=== PATIENT | female | born 1990 | race Caucasian/White ===

== ENCOUNTER 2017-11-29 00:47 | Emergency (ER) | payer SELFPAY ==
[2017-11-29] MEDS ORDERED: ONDANSETRON 4 MG/2 ML VIAL ONE (02:08)
[2017-11-29] MEDS ORDERED: MEPERIDINE HCL 50 MG/ML AMP ONE (02:08)
[2017-11-29 02:31] LABS: Urine Blood NEGATIVE (NEG); Urine Glucose NEGATIVE (NEG); Urine Protein NEGATIVE (NEG); Urine Specific Gravity 1.015 (1.005-1.030); Urine pH 5.5 (5.0-7.0)
[2017-11-29] MEDS ORDERED: MORPHINE 10 MG/ML VIAL ONE (03:02)
--- NOTE | 2017-11-29 03:10 | ER ---
Nurse's Notes [facility] Name: Lona Winter Age: 27 yrs Sex: Female : 1990 Arrival Date: 11/29/2017 Time: 00:50 Bed 6 Private MD: Severo Avina T Diagnosis: Acute low back pain. S/P Fall Presentation: 11/29 01:07 Presenting complaint: Patient states: she slipped and fell 4 days and landed on her aa1 back on a tile floor and the pain is progressively getting worse. States pain radiates down R leg and up to L shoulder. Gait steady. Transition of care: patient was not received from another setting of care. Onset of symptoms was November 25, 2017. Care prior to arrival: None. 01:07 Method Of Arrival: Ambulatory aa1 01:07 Acuity: SMITH 4 aa1 Triage Assessment: 01:09 General: Appears in no apparent distress. uncomfortable, Behavior is calm, cooperative, aa1 appropriate for age. 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 - Social history:: Smoking status: Patient uses tobacco products, denies chronic smoking, but will smoke occasionally. Screenin:33 Abuse screen: Denies threats or abuse. Denies injuries from another. Nutritional ao screening: No deficits noted. Tuberculosis screening: No symptoms or risk factors identified. Fall Risk None identified. Assessment: 01:26 General: Appears in no apparent distress. uncomfortable, Behavior is cooperative, ao crying. Pain: Complains of pain in back Pain radiates to left subscapular area, left low back and left mid back. Neuro: Level of Consciousness is awake, alert, obeys commands, Oriented to person, place, time, situation, Appropriate for age Moves all extremities. Speech is normal, Facial symmetry appears normal. Cardiovascular: Heart tones S1 S2 Capillary refill < 3 seconds Patient's skin is warm and dry. Respiratory: Airway is patent Respiratory effort is even, unlabored, Respiratory pattern is regular, symmetrical, Breath sounds are clear bilaterally. GI: Abdomen is non-distended. : No signs and/or symptoms were reported regarding the genitourinary system. EENT: No signs and/or symptoms were reported regarding the EENT system. Derm: No signs and/or symptoms reported regarding the dermatologic system. Musculoskeletal: Range of motion: limited in all extremities, Reports pain in back. 01:42 Reassessment: Patient states that she had Demerol in the past and she never had an ao allergy to it. Patient will be medicated with Demerol an monitored. 02:35 Reassessment: Patient appears in no apparent distress at this time. Patient and/or ao family updated on plan of care and expected duration. Pain level reassessed. Patient is alert, oriented x 3, equal unlabored respirations, skin warm/dry/pink. Patient pain level is unchangeable. Dr Barragan Notified. 02:47 Reassessment: Patient called to report that she still in pain. Dr Barragan was notified. ao Received a verbal order from Dr Barragan to medicated patient with Morphine 4 IM. Patient has been medicated and will be monitored as patient stated that she is not allergic to Morphine. 03:36 Reassessment: DC Instructions given to patient. Patient agree with the POC and to ao follow up with PCP. Vital Signs: 01:09 BP 130 / 78; Pulse 88; Resp 16; Temp 97.9; Pulse Ox 99% on R/A; Weight 66.22 kg; Height aa1 5 ft. 3 in. (160.02 cm); Pain 10/10; 02:35 BP 132 / 76; Pulse 86; Resp 18; Pulse Ox 100% on R/A; ao 03:36 BP 118 / 86; Pulse 86; Resp 14; Pulse Ox 100% ; Pain 6/10; ao 01:09 Body Mass Index 25.86 (66.22 kg, 160.02 cm) aa1 ED Course: 00:50 Patient arrived in ED. es 00:51 Avina, Severo, MD is Private Physician. es 01:08 Triage completed. aa1 01:09 Arm band placed on left wrist. Patient placed in waiting room, Patient notified of wait aa1 time. 01:19 Tigre Saravia RN is Primary Nurse. ao 01:23 Tc Barragan MD is Attending Physician. pkl 01:34 Patient has correct armband on for positive identification. Pulse ox on. NIBP on. ao 01:59 Radiology exam delayed due to test not completed at this time. nb1 03:09 Severo Avina MD is Referral Physician. pkl 03:37 No provider procedures requiring assistance completed. Patient did not have IV access ao during this emergency room visit. 07:34 CT Lumbar Spine Wo Con In Process Unspecified. EDMS Administered Medications: 01:54 Drug: Demerol 50 mg Route: IM; Site: right gluteus; ao 02:20 Follow up: Response: No adverse reaction; Pain is unchanged, physician notified ao 01:54 Drug: Zofran 4 mg Route: IM; Site: left gluteus; ao 03:38 Follow up: Response: No adverse reaction ao 02:47 Drug: morphine 4 mg Route: IM; Site: left deltoid; ao 03:37 Follow up: Response: No adverse reaction ao Outcome: 03:10 Discharge ordered by . pkl 03:37 Discharged to home ambulatory. ao 03:37 Condition: stable 03:37 Discharge instructions given to patient, Instructed on discharge instructions, follow up and referral plans. Demonstrated understanding of instructions, follow-up care, medications, Prescriptions given X 2. 03:38 Patient left the ED. ao Signatures: Dispatcher [employer] EDMS Rayna Clarke RN RN aa1 Tc Barragan MD MD pkCherry Bergman Alex, RN RN Rosalva Boss nb1
--- NOTE | 2017-11-29 03:10 | EDPHYS ---
Physician Documentation [facility] Name: Lona Marie Age: 27 yrs Sex: Female : 1990 Arrival Date: 11/29/2017 Time: 00:50 Bed 6 Private MD: Severo Avina T ED Physician Tc Barragan HPI: 11/29 01:36 This 27 yrs old Female presents to ER via Ambulatory with complaints of Back pkl Pain. 01:36 The patient presents with pain that is acute. The symptoms are located in the low back. pkl Onset: The symptoms/episode began/occurred 4 day(s) ago. Location: right leg. Patient she slipped and fell on her lower back 4 days ago at home. 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 - Social history:: Smoking status: Patient uses tobacco products, denies chronic smoking, but will smoke occasionally. ROS: 01:36 Eyes: Negative for injury, pain, redness, and discharge, ENT: Negative for injury, pkl pain, and discharge, Neck: Negative for injury, pain, and swelling, Cardiovascular: Negative for chest pain, palpitations, and edema, Respiratory: Negative for shortness of breath, cough, wheezing, and pleuritic chest pain, Abdomen/GI: Negative for abdominal pain, nausea, vomiting, diarrhea, and constipation. 01:36 Back: Positive for pain at rest, of the lower back. 01:36 : Negative for urinary symptoms. 01:36 MS/extremity: Negative for acute changes. 01:36 Skin: Negative for rash. 01:36 Neuro: Negative for altered mental status. Exam: 01:36 Head/Face: Normocephalic, atraumatic. Eyes: Pupils equal round and reactive to light, pkl extra-ocular motions intact. Lids and lashes normal. Conjunctiva and sclera are non-icteric and not injected. Cornea within normal limits. Periorbital areas with no swelling, redness, or edema. ENT: Nares patent. No nasal discharge, no septal abnormalities noted. Tympanic membranes are normal and external auditory canals are clear. Oropharynx with no redness, swelling, or masses, exudates, or evidence of obstruction, uvula midline. Mucous membranes moist. Neck: Trachea midline, no thyromegaly or masses palpated, and no cervical lymphadenopathy. Supple, full range of motion without nuchal rigidity, or vertebral point tenderness. No Meningismus. Chest/axilla: Normal chest wall appearance and motion. Nontender with no deformity. No lesions are appreciated. Cardiovascular: Regular rate and rhythm with a normal S1 and S2. No gallops, murmurs, or rubs. Normal PMI, no JVD. No pulse deficits. Respiratory: Lungs have equal breath sounds bilaterally, clear to auscultation and percussion. No rales, rhonchi or wheezes noted. No increased work of breathing, no retractions or nasal flaring. Abdomen/GI: Soft, non-tender, with normal bowel sounds. No distension or tympany. No guarding or rebound. No evidence of tenderness throughout. 01:36 Back: pain, that is moderate, of the lower back, ROM is painful, with all movement, Straight leg raises: of both lower extremities does not illicit pain. 01:36 : Exam negative for acute changes. 01:36 Musculoskeletal/extremity: Exam is negative for acute changes. 01:36 Skin: Exam negative for rash. 01:36 Neuro: Orientation: is normal, Mentation: is normal, Cranial nerves: grossly normal, Motor: is normal, Gait: is steady. Vital Signs: 01:09 BP 130 / 78; Pulse 88; Resp 16; Temp 97.9; Pulse Ox 99% on R/A; Weight 66.22 kg; Height aa1 5 ft. 3 in. (160.02 cm); Pain 10/10; 02:35 BP 132 / 76; Pulse 86; Resp 18; Pulse Ox 100% on R/A; ao 03:36 BP 118 / 86; Pulse 86; Resp 14; Pulse Ox 100% ; Pain 6/10; ao 01:09 Body Mass Index 25.86 (66.22 kg, 160.02 cm) aa1 MDM: 01:23 Patient medically screened. pkl 03:08 Data reviewed: vital signs, nurses notes, lab test result(s), radiologic studies, CT pkl scan. ED course: Advised MRI lumbar spines if not better. 11/29 01:44 Order name: Urine Dipstick--Ancillary (enter results); Complete Time: 02:55 em1 11/29 01:44 Order name: Urine --Ancillary (enter results); Complete Time: 02:55 em1 11/29 01:34 Order name: CT Lumbar Spine Wo Con pkl 11/29 01:46 Order name: Urine Dipstick-Ancillary (obtain specimen); Complete Time: 01:47 em1 11/29 01:46 Order name: Urine Test (obtain specimen); Complete Time: 01:47 em1 Administered Medications: 01:54 Drug: Demerol 50 mg Route: IM; Site: right gluteus; ao 02:20 Follow up: Response: No adverse reaction; Pain is unchanged, physician notified ao 01:54 Drug: Zofran 4 mg Route: IM; Site: left gluteus; ao 03:38 Follow up: Response: No adverse reaction ao 02:47 Drug: morphine 4 mg Route: IM; Site: left deltoid; ao 03:37 Follow up: Response: No adverse reaction ao Disposition: 11/29/17 03:10 Discharged to Home. Impression: Acute low back pain. S/P Fall. - Condition is Stable. - Prescriptions for Tylenol- Codeine #3 300-30 mg Oral Tablet - take 1 tablet by ORAL route every 8 hours As needed; 20 tablet. Cyclobenzaprine 5 mg Oral Tablet - take 1 tablet by ORAL route 2 times per day As needed; 15 tablet. - Work release form, Medication Reconciliation Form, Thank You Letter, Antibiotic Education, Prescription Opioid Use form. - Follow up: Severo Avina MD; When: 2 - 3 days; Reason: Re-evaluation by your physician. - Problem is new. - Symptoms are unchanged. Signatures: Dispatcher [facility] EDRayna Bo RN RN aa1 Tc Barragan MD MD pkl Martinez, Eric em1 Tigre Saravia, RN RN ao
[2017-11-29 03:43] VITALS: TEMP 97.9
[2017-11-29 03:45] VITALS: O2SAT 100
[2017-11-29 03:46] VITALS: BP 118/86
--- NOTE | 2017-11-29 08:34 | RAD REPORT ---
EXAM DESCRIPTION: CT - Spine Lumbar Wo Con - 11/29/2017 7:34 am CLINICAL HISTORY: Slip and fall, back pain, right lower extremity radiculopathy A preliminary written report was provided at the time of the study, and the report was reviewed prio r to final dictation. COMPARISON: None. TECHNIQUE: Thin section axial imaging of the lumbar spine was performed. Sagittal and coronal recon struction images were generated and reviewed. All CT scans are performed using dose optimization technique as appropriate and may include automated exposure control or mA/KV adjustment according to patient size. FINDINGS: Lumbar bodies are normal in height and alignment. No fracture or acute vertebral body find ing. Facet joints show normal alignment. No pars defects are identifiable. There is no degenerative c hange seen. No paraspinal mass identified. The paraspinal musculature show no acute findings. In the central candace l no disc herniation or significant disc bulge identifiable. CT has inherent limitation in assessment of central canal findings. IMPRESSION: No acute bone or disc finding suspected. CT has inherent limitation and central canal and foraminal assessment. If there are continued concern s for disc herniation or central canal abnormality, followup MR imaging could be performed.
== END 2017-11-29 03:38 | disposition home or self-care (01) ==
LOC: ER 00:47
DX: Z72.0 Tobacco use; Z91.048 Other nonmedicinal substance allergy status; Y92.009 Unspecified place in unspecified non-institutional (private) residence as the place of occurrence of the external cause; Z88.8 Allergy status to other drugs, medicaments and biological substances; Z91.040 Latex allergy status; Z88.6 Allergy status to analgesic agent; Z85.828 Personal history of other malignant neoplasm of skin; Z88.5 Allergy status to narcotic agent; W01.0XXA Fall on same level from slipping, tripping and stumbling without subsequent striking against object, initial encounter; M54.5 Low back pain; Z88.3 Allergy status to other anti-infective agents; Z88.0 Allergy status to penicillin; Z88.1 Allergy status to other antibiotic agents
CPT/HCPCS: 72131; 81003; 81025; 96372; 99284; J2175; J2405

== ENCOUNTER 2018-01-17 20:45 | Emergency (ER) | payer SELFPAY ==
[2018-01-17 22:57] LABS: Absolute Lymphocytes (CBC) 2.1 K/uL (0.7-4.9); Absolute Monocytes 0.6 K/uL (0.1-1.3); Absolute Neutrophil 6.6 K/uL (1.8-8.0); Basophils % 0.5 % (0-1.3); Eosinophils % 0.5 % (0-4.4); Hematocrit 41.7 % (36.0-45.0); Lymphocytes % 22.6 % (15.3-44.8); MCH 32.5 pg (27.0-35.0); MCV 95.6 fL (80-100); MPV 7.5 fL (7.6-11.3); Monocytes % 6.3 % (3.3-12.3); RBC Red Blood Cell Count 4.36 M/uL (3.86-4.86)
[2018-01-17 23:07] LABS: Bicarbonate 26 mEq/L (21-31); Glucose Level 84 mg/dL (65-120); Potassium 3.4 mEq/L (3.6-5.0); Sodium Level 137 mEq/L (135-145)
[2018-01-17 23:15] LABS: BUN Blood Urea Nitrogen 11 mg/dL (6-20)
[2018-01-17 23:24] LABS: HCG, Quantitative 77.9 mIU/mL (<5)
[2018-01-17 23:47] LABS: Urine Blood TRACE (NEG); Urine Glucose NEGATIVE (NEG); Urine Protein NEGATIVE (NEG); Urine pH 5.5 (5.0-7.0)
--- NOTE | 2018-01-17 23:49 | ER ---
Nurse's Notes [facility] Name: Loan Winter Age: 27 yrs Sex: Female : 1990 Arrival Date: 01/17/2018 Time: 20:48 Bed 18 Private MD: Diagnosis: Threatened Presentation: 01/17 20:53 Presenting complaint: Patient states: spotting and abd cramping with nausea. pt c/o ak1 dizziness. pt stated she found out she was Wednesday. Transition of care: patient was not received from another setting of care. Onset of symptoms was January 17, 2018. Initial Sepsis Screen: Does the patient meet any 2 criteria? No. Patient's initial sepsis screen is negative. Does the patient have a suspected source of infection? No. Patient's initial sepsis screen is negative. Care prior to arrival: None. 20:53 Method Of Arrival: Ambulatory ak1 20:53 Acuity: SMITH 4 ak1 Triage Assessment: 20:50 General: Appears in no apparent distress. Behavior is calm, cooperative. Pain: ak1 Complains of pain in abdomen and pelvis. EENT: No signs and/or symptoms were reported regarding the EENT system. Neuro: No deficits noted. Cardiovascular: No deficits noted. Respiratory: No deficits noted. GI: Reports lower abdominal pain, cramping, nausea. : Reports vaginal bleeding that is spotty, since on. pt told last Wednesday she was . pt c/o nausea. pt taking macrobid since Wednesday. Derm: No deficits noted. Musculoskeletal: No signs and/or symptoms reported regarding the musculoskeletal system. 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 - Social history:: Smoking status: Patient/guardian denies using tobacco, the patient reports quitting approximately .25 years ago. Screenin:56 Abuse screen: Denies threats or abuse. Denies injuries from another. Nutritional ak1 screening: No deficits noted. Tuberculosis screening: No symptoms or risk factors identified. Fall Risk None identified. Assessment: 21:13 General: Appears uncomfortable, Behavior is cooperative, appropriate for age, anxious. jd3 Pain: Complains of pain in suprapubic area Quality of pain is described as crampy, "sort of like my period pain." Pain began today. Neuro: Level of Consciousness is awake, alert, obeys commands, Oriented to person, place, time, situation. Cardiovascular: Heart tones S1 S2 present Capillary refill < 3 seconds Patient's skin is warm and dry. Respiratory: Airway is patent Respiratory effort is even, unlabored, Respiratory pattern is regular, symmetrical, Breath sounds are clear bilaterally. GI: Abdomen is round Bowel sounds present X 4 quads. Abd is soft and non tender X 4 quads. Reports lower abdominal pain, nausea, Patient currently denies constipation, diarrhea. : Reports vaginal bleeding that is spotty. EENT: EENT: No signs and/or symptoms were reported regarding the EENT system. Derm: Skin is intact, Skin is dry, Skin is normal, Skin temperature is warm. Musculoskeletal: Circulation, motion, and sensation intact. Range of motion: intact in all extremities. 22:55 Reassessment: Patient appears in no apparent distress at this time. Patient and/or jd3 family updated on plan of care and expected duration. Pain level reassessed. Patient is alert, oriented x 3, equal unlabored respirations, skin warm/dry/pink. 23:47 Reassessment: Patient appears in no apparent distress at this time. Patient and/or jd3 family updated on plan of care and expected duration. Pain level reassessed. Patient is alert, oriented x 3, equal unlabored respirations, skin warm/dry/pink. pt resting in bed, even and unlabored respirations, call bennett in reach, no distress noted at this time. 01/18 00:05 Reassessment: Patient appears in no apparent distress at this time. Patient and/or jd3 family updated on plan of care and expected duration. Pain level reassessed. Patient is alert, oriented x 3, equal unlabored respirations, skin warm/dry/pink. pt reported understanding of discharge instructions, even and steady gait upon discharge. Vital Signs: 01/17 20:50 BP 137 / 78; Pulse 80; Resp 18; Temp 97.9(TE); Pulse Ox 100% on R/A; Weight 66.22 kg ak1 (R); Height 5 ft. 3 in. (160.02 cm) (R); Pain 6/10; 22:55 BP 127 / 68; Pulse 93; Resp 17 S; Pulse Ox 98% on R/A; jd3 23:47 BP 128 / 77; Pulse 80; Resp 18 S; Pulse Ox 100% on R/A; jd3 20:50 Body Mass Index 25.86 (66.22 kg, 160.02 cm) ak1 ED Course: 20:48 Patient arrived in ED. es 20:50 Arm band placed on Patient placed in waiting room, Patient notified of wait time. ak1 20:56 Triage completed. ak1 20:56 Patient has correct armband on for positive identification. ak1 21:05 Ga Phan RN is Primary Nurse. jd3 21:44 Yuki Jesus FNP-C [facility]. snw 21:44 Jose Roberto Baker MD is Attending Physician. snw 22:06 Transvaginal Ob In Process Unspecified. EDMS 01/18 00:05 No provider procedures requiring assistance completed. Patient did not have IV access jd3 during this emergency room visit. Administered Medications: No medications were administered Outcome: 01/17 23:49 Discharge ordered by . snw 01/18 00:06 Discharged to home ambulatory. jd3 Condition: stable Discharge instructions given to patient, Instructed on discharge instructions, follow up and referral plans. medication usage, Demonstrated understanding of instructions, follow-up care, medications, Prescriptions given X 1. 00:06 Patient left the ED. jd3 Signatures: Dispatcher [employer] EDWI Yuki Jesus FNP-C MARKETING TRAFFIC COORDINATOR-Csnw Cherry Patterson Amber RN RN ak1 Ga Phan RN RN jd3
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
[2018-01-18 00:29] VITALS: TEMP 97.9
[2018-01-18 00:32] VITALS: BP 128/77; O2SAT 100
--- NOTE | 2018-01-18 07:28 | RAD REPORT ---
EXAM DESCRIPTION: US - Transvaginal OB - 01/17/2018 10:05 pm CLINICAL HISTORY: , abdominal pain and cramping, vaginal bleeding Preliminary findings provided at the time of the study. COMPARISON: None. FINDINGS: Endometrial stripe is 9-10 mm. No gestational sac or sac remnant. No hematoma, mass or oth er focal endometrial finding. Endometrium -myometrium interface is normal with no myometrial mass. Ut erus is 6.7 x 3.4 x 5.0 cm. Both ovaries are identifiable. No dominant solid or cystic ovarian or adnexal finding. No free fluid or blood in the cul-de-sac. No adnexal mass to suspect ectopic . IMPRESSION: Negative pelvic ultrasound. No intrauterine or extra uterine evidence for gestation or r emnant. Followup sonography can be performed if serial beta HCG values indicate ongoing .
== END 2018-01-18 00:06 | disposition home or self-care (01) ==
LOC: ER 20:45
DX: O20.0 Threatened abortion (principal); Z3A.10 10 weeks gestation of pregnancy; Z88.0 Allergy status to penicillin; Z88.3 Allergy status to other anti-infective agents; Z88.5 Allergy status to narcotic agent; Z88.6 Allergy status to analgesic agent; Z88.8 Allergy status to other drugs, medicaments and biological substances; Z91.040 Latex allergy status
CPT/HCPCS: 36415; 76817; 80048; 81003; 81025; 84702; 85025; 86900; 86901; 99283

== ENCOUNTER 2018-01-25 20:47 | Emergency (ER) | payer SELFPAY ==
[2018-01-25 21:37] LABS: Urine Bacteria <20 /HPF (<20); Urine Culture Reflex Order NOT NEEDED; Urine RBC <5 /HPF (NONE SEEN)
--- NOTE | 2018-01-25 23:10 | ER ---
Nurse's Notes [facility] Name: Lona Marie Age: 27 yrs Sex: Female : 1990 Arrival Date: 01/25/2018 Time: 20:50 Bed 20 Private MD: Diagnosis: Threatened Presentation: 01/25 20:52 Presenting complaint: Patient states: I was seen here 8 days ago for the same thing. aj1 I'm having continued spotting and cramping. I was prescribed Macrobid for a UTI, now I have vaginal discharge that a white milky color or pinkish brown. There's no odor, but its really itchy. I was diagnosed with chlamydia I took the azithromycin that was a week ago. Patient has had multiple positive tests, but is unsure how far along she is. She has been unable to get a follow up with her OB because her insurance has not kicked in. Transition of care: patient was not received from another setting of care. Onset of symptoms was January 24, 2018. Risk Assessment: Do you want to hurt yourself or someone else? Patient reports no desire to harm self or others. Initial Sepsis Screen: Does the patient meet any 2 criteria? No. Patient's initial sepsis screen is negative. Does the patient have a suspected source of infection? No. Patient's initial sepsis screen is negative. Care prior to arrival: None. 20:52 Method Of Arrival: Ambulatory aj1 20:52 Acuity: SMITH 3 aj1 Triage Assessment: 21:01 General: Appears uncomfortable, Behavior is anxious. Pain: Complains of pain in aj1 suprapubic area Pain does not radiate. Pain currently is 7 out of 10 on a pain scale. Quality of pain is described as crampy, Is continuous. GI: Reports nausea, Patient currently denies diarrhea, vomiting. : Reports burning with urination, discharge, white, urgency, urinary frequency, vaginal itching, vaginal bleeding that is spotty. 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 - Social history:: Smoking status: Patient/guardian denies using tobacco. - Ebola Screening: : No symptoms or risks identified at this time. Screenin:01 Abuse screen: Denies threats or abuse. Denies injuries from another. Nutritional lp1 screening: No deficits noted. Tuberculosis screening: No symptoms or risk factors identified. Fall Risk None identified. Assessment: 21:15 General: Appears in no apparent distress. Behavior is anxious. Pain: Complains of pain lp1 in suprapubic area Pain currently is 7 out of 10 on a pain scale. Quality of pain is described as sharp. Neuro: Level of Consciousness is awake, alert, obeys commands. Cardiovascular: Patient's skin is warm and dry. Respiratory: Respiratory effort is even, unlabored. GI: Abdomen is non-distended, Bowel sounds present X 4 quads. Abdomen is tender to palpation in suprapubic area. : Reports cramping, discharge, white, pain in suprapubic area vaginal itching. EENT: No signs and/or symptoms were reported regarding the EENT system. Derm: Skin is pink, warm \\T\\ dry. Musculoskeletal: Circulation, motion, and sensation intact. 22:23 Reassessment: Patient crying, states "it just hurts and I don't know what's wrong"; lp1 aware of waiting for ultrasound. 23:18 Reassessment: Patient returned from ultrasound at this time. lp1 Vital Signs: 21:01 BP 122 / 70; Pulse 88; Resp 18; Temp 98.4; Pulse Ox 100% on R/A; Weight 67.13 kg; aj1 Height 5 ft. 3 in. (160.02 cm); Pain 7/10; 22:00 BP 122 / 73; Pulse 96; Resp 16; Pulse Ox 98% on R/A; lp1 23:18 BP 109 / 83; Pulse 89; Resp 16; Pulse Ox 99% on R/A; lp1 21:01 Body Mass Index 26.22 (67.13 kg, 160.02 cm) aj1 ED Course: 20:50 Patient arrived in ED. am2 20:59 Triage completed. aj1 21:01 Arm band placed on Patient placed in an exam room. aj1 21:09 Yuki Jesus [facility]-C [facility] snw 21:09 Aj Doe MD is Attending Physician. snw 21:26 Charlotte Emerson, RN is Primary Nurse. lp1 22:01 Patient has correct armband on for positive identification. Placed in gown. lp1 22:10 No provider procedures requiring assistance completed. Patient did not have IV access lp1 during this emergency room visit. 23:04 Ultrasound completed. Patient tolerated well. aa4 23:07 US Transvaginal Ob In Process Unspecified. EDMS Administered Medications: No medications were administered Outcome: 23:10 Discharge ordered by . snw 23:35 Discharged to home ambulatory. lp1 23:35 Condition: good 23:35 Discharge instructions given to patient, Instructed on discharge instructions, follow up and referral plans. medication usage, Demonstrated understanding of instructions, follow-up care, medications, Prescriptions given X 1. 23:47 Patient left the ED. lp1 Signatures: Dispatcher [employer] EDMS Reina Bingham, RN RN aj1 Yuki Jesus FNP-C FNP-[place]ami [place] aa4 Charlotte Emerson, RN RN lp1 Tami Fortune am
--- NOTE | 2018-01-25 23:11 | EDPHYS ---
Physician Documentation [facility] Name: Lona Winter Age: 27 yrs Sex: Female : 1990 Arrival Date: 01/25/2018 Time: 20:50 Bed 20 Private MD: ED Physician Aj Doe HPI: 01/25 23:19 This 27 yrs old Female presents to ER via Ambulatory with complaints of snw Abdominal Cramping, Vaginal Bleeding, + Preg <12wks. 23:19 The patient presents with vaginal bleeding that is spotting. Onset: The snw symptoms/episode began/occurred suddenly, and became persistent. Modifying factors: The symptoms are alleviated by nothing. Associated signs and symptoms: Pertinent positives: vaginal bleeding. Severity of symptoms: At their worst the symptoms were moderate. The patient has experienced similar episodes in the past, multiple times. pt seen here last week with similar symptoms, states she was seen at [place] as well. Has an appt with Ob on February 06, 2018. 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 - Social history:: Smoking status: Patient/guardian denies using tobacco. - Ebola Screening: : No symptoms or risks identified at this time. ROS: 23:17 Constitutional: Negative for fever, chills, and weight loss, Eyes: Negative for injury, snw pain, redness, and discharge, ENT: Negative for injury, pain, and discharge, Neck: Negative for injury, pain, and swelling, Cardiovascular: Negative for chest pain, palpitations, and edema, Respiratory: Negative for shortness of breath, cough, wheezing, and pleuritic chest pain, Back: Negative for injury and pain, MS/Extremity: Negative for injury and deformity, Skin: Negative for injury, rash, and discoloration, Neuro: Negative for headache, weakness, numbness, tingling, and seizure. 23:17 Abdomen/GI: Positive for abdominal pain, abdominal cramps, of the suprapubic area. 23:17 : Positive for vaginal bleeding. Exam: 23:16 Constitutional: This is a well developed, well nourished patient who is awake, alert, snw and in no acute distress. Head/Face: Normocephalic, atraumatic. Eyes: Pupils equal round and reactive to light, extra-ocular motions intact. Lids and lashes normal. Conjunctiva and sclera are non-icteric and not injected. Cornea within normal limits. Periorbital areas with no swelling, redness, or edema. ENT: Nares patent. No nasal discharge, no septal abnormalities noted. Tympanic membranes are normal and external auditory canals are clear. Oropharynx with no redness, swelling, or masses, exudates, or evidence of obstruction, uvula midline. Mucous membranes moist. Neck: Trachea midline, no thyromegaly or masses palpated, and no cervical lymphadenopathy. Supple, full range of motion without nuchal rigidity, or vertebral point tenderness. No Meningismus. Chest/axilla: Normal chest wall appearance and motion. Nontender with no deformity. No lesions are appreciated. Cardiovascular: Regular rate and rhythm with a normal S1 and S2. No gallops, murmurs, or rubs. Normal PMI, no JVD. No pulse deficits. Respiratory: Lungs have equal breath sounds bilaterally, clear to auscultation and percussion. No rales, rhonchi or wheezes noted. No increased work of breathing, no retractions or nasal flaring. Back: No spinal tenderness. No costovertebral tenderness. Full range of motion. Skin: Warm, dry with normal turgor. Normal color with no rashes, no lesions, and no evidence of cellulitis. MS/ Extremity: Pulses equal, no cyanosis. Neurovascular intact. Full, normal range of motion. Neuro: Awake and alert, GCS 15, oriented to person, place, time, and situation. Cranial nerves II-XII grossly intact. Motor strength 5/5 in all extremities. Sensory grossly intact. Cerebellar exam normal. Normal gait. Psych: Awake, alert, with orientation to person, place and time. Behavior, mood, and affect are within normal limits. 23:16 Abdomen/GI: Soft, non-tender, with normal bowel sounds. No distension or tympany. No guarding or rebound. No evidence of tenderness throughout. Vital Signs: 21:01 BP 122 / 70; Pulse 88; Resp 18; Temp 98.4; Pulse Ox 100% on R/A; Weight 67.13 kg; aj1 Height 5 ft. 3 in. (160.02 cm); Pain 7/10; 22:00 BP 122 / 73; Pulse 96; Resp 16; Pulse Ox 98% on R/A; lp1 23:18 BP 109 / 83; Pulse 89; Resp 16; Pulse Ox 99% on R/A; lp1 21:01 Body Mass Index 26.22 (67.13 kg, 160.02 cm) aj1 MDM: 21:09 Patient medically screened. peg 23:18 Data reviewed: vital signs, nurses notes. Data interpreted: Pulse oximetry: on room air snw is 98 %. Interpretation: normal. Counseling: I had a detailed discussion with the patient and/or guardian regarding: the historical points, exam findings, and any diagnostic results supporting the discharge/admit diagnosis, lab results, radiology results, the need for outpatient follow up, to return to the emergency department if symptoms worsen or persist or if there are any questions or concerns that arise at home. Special discussion: Based on the history and exam findings, there is no indication for further emergent testing or inpatient evaluation. I discussed with the patient/guardian the need to see the OB Gyne specialist for further evaluation of the symptoms. I discussed with the patient/guardian the need to see the primary care provider for further evaluation of the symptoms. 01/25 21:11 Order name: HCG-Quantitative; Complete Time: 22:13 snw 01/25 21:11 Order name: Urine Culture snw 01/25 21:11 Order name: Urine Microscopic Only; Complete Time: 21:42 snw 01/25 21:26 Order name: Urine Dipstick--Ancillary (enter results); Complete Time: 23:15 rg2 01/25 22:17 Order name: US Transvaginal Ob w 01/25 21:11 Order name: Urine Dipstick-Ancillary (obtain specimen); Complete Time: 21:26 snw Administered Medications: No medications were administered Disposition: 01/25/18 23:10 Discharged to Home. Impression: Threatened . - Condition is Stable. - Discharge Instructions: Medicines During , Threatened Miscarriage, First Trimester of , Pelvic Rest. - Prescriptions for Vitamin 27- 0.8 mg Oral Tablet - take 1 tablet by ORAL route once daily; 60 tablet. - Medication Reconciliation Form, Thank You Letter, Antibiotic Education, Prescription Opioid Use form. - Follow up: Private Physician; When: 1 week; Reason: Recheck today's complaints, Continuance of care, Re-evaluation by your physician. Follow up: Emergency Department; When: As needed; Reason: Worsening of condition. Addendum: 01/27/2018 07:01 Co-signature as Attending Physician, Aj Doe MD I agree with the assessment and c hinojosa plan of care. Signatures: Dispatcher [employer] EDReina Loving, RN RN aj1 Aj Doe MD MD cha Therrien, Shelly, LIFT TRUCK MECHANIC-C LIFT TRUCK MECHANIC-Csnw Charlotte Emerson, RN RN lp1 Corrections: (The following items were deleted from the chart) 01/25 21:25 21:11 Urine Test ordered. snw rg2 23:47 23:10 01/25/2018 23:10 Discharged to Home. Impression: Threatened . Condition lp1 is Stable. Forms are Medication Reconciliation Form, Thank You Letter, Antibiotic Education, Prescription Opioid Use. Follow up: Private Physician; When: 1 week; Reason: Recheck today's complaints, Continuance of care, Re-evaluation by your physician. Follow up: Emergency Department; When: As needed; Reason: Worsening of condition. snw
[2018-01-25 23:14] LABS: Urine Blood TRACE (NEG); Urine Glucose NEGATIVE (NEG); Urine Protein NEGATIVE (NEG); Urine Specific Gravity <1.005 (1.005-1.030)
[2018-01-25 23:51] VITALS: TEMP 98.4
[2018-01-25 23:53] VITALS: BP 109/83; O2SAT 99
--- NOTE | 2018-01-26 08:17 | RAD REPORT ---
EXAM DESCRIPTION: US - Transvaginal OB - 01/25/2018 11:06 pm CLINICAL HISTORY: Vaginal bleeding. COMPARISON: 01/17/2018 FINDINGS: A single gestational sac is seen within the uterus. The mean sac diameter is 5 mm. This co rrelates with 5 weeks 2 days gestational age. No yolk sac or embryo yet identified. Both ovaries are normal in size, shape and echotexture with normal Doppler blood flow. No significant pelvic ascites. IMPRESSION: Early IUP findings are present with small gestational sac noted in the fundal endometriu m.Embryonic components are not yet identified at this early gestational age. Advise followup sonograp hy in 10-12 days.
== END 2018-01-25 23:47 | disposition home or self-care (01) ==
LOC: ER 20:47
DX: O20.0 Threatened abortion (principal); Z88.0 Allergy status to penicillin; Z88.1 Allergy status to other antibiotic agents; Z88.3 Allergy status to other anti-infective agents; Z88.5 Allergy status to narcotic agent; Z88.6 Allergy status to analgesic agent; Z91.040 Latex allergy status; Z91.048 Other nonmedicinal substance allergy status
CPT/HCPCS: 36415; 76817; 81003; 81015; 84702; 87086; 87088; 99283

== ENCOUNTER 2018-05-02 17:00 | Emergency (ER) | payer OTHER, SELFPAY ==
--- NOTE | 2018-05-02 18:20 | ER ---
Nurse's Notes [facility] Name: Lona Marie Age: 27 yrs Sex: Female : 1990 Arrival Date: 05/02/2018 Time: 17:03 Bed 11 Private MD: None, None Diagnosis: Pain in right wrist Presentation: 05/02 17:06 Presenting complaint: Patient states: right wrist pain radiating up to right FA. Pt aa5 states "I fell a couple of weeks ago and it's not getting better". Pt reports being 19 weeks . Transition of care: patient was not received from another setting of care. Onset of symptoms was April 2018. Risk Assessment: Do you want to hurt yourself or someone else? Patient reports no desire to harm self or others. Initial Sepsis Screen: Does the patient meet any 2 criteria? No. Patient's initial sepsis screen is negative. Does the patient have a suspected source of infection? No. Patient's initial sepsis screen is negative. Care prior to arrival: None. 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 Screenin:30 Abuse screen: Denies threats or abuse. Denies injuries from another. Nutritional sg screening: No deficits noted. Tuberculosis screening: No symptoms or risk factors identified. Never had TB. Fall Risk None identified. Assessment: 17:30 General: Appears in no apparent distress. comfortable, well groomed, well developed, sg well nourished, Behavior is calm, cooperative, appropriate for age. Pain: Complains of pain in right wrist. Neuro: No deficits noted. Cardiovascular: Heart tones S1 S2 present Capillary refill is brisk in bilateral fingers Patient's skin is warm and dry. Chest pain is denied. Respiratory: Airway is patent Respiratory effort is even, unlabored, Respiratory pattern is regular, symmetrical. GI: No signs and/or symptoms were reported involving the gastrointestinal system. : No deficits noted. EENT: No deficits noted. Derm: Skin is pink, warm \\T\\ dry. Musculoskeletal: Circulation, motion, and sensation intact. Capillary refill is brisk, in bilateral fingers. Range of motion: intact in all extremities, Swelling absent Vital Signs: 17:12 BP 137 / 81; Pulse 88; Resp 18 S; Temp 98.0(TE); Pulse Ox 100% on R/A; aa5 17:16 Weight 69.85 kg (R); Height 5 ft. 3 in. (160.02 cm) (R); Pain 9/10; aa5 17:16 Body Mass Index 27.28 (69.85 kg, 160.02 cm) aa5 ED Course: 17:03 Patient arrived in ED. mr 17:03 None, None is Private Physician. mr 17:06 Arm band placed on. aa5 17:08 Triage completed. aa5 17:18 Clement Mccall PA is PHCP. jr8 17:18 Aj Doe MD is Attending Physician. jr8 17:30 Patient has correct armband on for positive identification. Call light in reach. Pulse sg ox on. NIBP on. 17:38 Rubin Groves, RN is Primary Nurse. sg 17:40 No provider procedures requiring assistance completed. sg 17:49 Awaiting for x-ray. sg 18:05 X-ray completed. Portable x-ray completed in exam room. Patient tolerated procedure az well. 18:06 XRAY Wrist RIGHT 3 view In Process Unspecified. EDMS 18:19 Abilio Rae MD is Referral Physician. jr8 18:40 Patient did not have IV access during this emergency room visit. Velcro wrist splint sg applied to right wrist. Administered Medications: No medications were administered Outcome: 18:19 Discharge ordered by . jr8 18:40 Discharged to home ambulatory, with family. sg 18:40 Condition: good 18:40 Discharge instructions given to patient, Instructed on discharge instructions, follow up and referral plans. safety practices, Demonstrated understanding of instructions, follow-up care, splint care. 18:44 Patient left the ED. bd Signatures: Dispatcher [employer] EDMS Zohra Burgos Steven, RN RN sg Candy Chauhan Audri, RN RN aa5 Clement Mccall PA PA jr8 Taryn Hammond
--- NOTE | 2018-05-02 18:20 | EDPHYS ---
Physician Documentation [facility] Name: Lona Winter Age: 27 yrs Sex: Female : 1990 Arrival Date: 05/02/2018 Time: 17:03 Bed 11 Private MD: None, None ED Physician Aj Doe HPI: 05/02 17:54 This 27 yrs old Female presents to ER via Ambulatory with complaints of Wrist jr8 Injury. 17:54 The patient or guardian reports pain. The complaints affect the right wrist diffusely. jr8 Onset: The symptoms/episode began/occurred acutely, 3 week(s) ago. Modifying factors: The symptoms are alleviated by nothing, the symptoms are aggravated by movement. Associated signs and symptoms: The patient has no apparent associated signs or symptoms. The patient has not experienced similar symptoms in the past. The patient has not recently seen a physician. Patient stated that she fell on wrist about 3 weeks ago. Stated that she has been doing OTC medication and ICE without relief . 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 ROS: 17:54 Eyes: Negative for injury, pain, redness, and discharge, ENT: Negative for injury, jr8 pain, and discharge, Neck: Negative for injury, pain, and swelling, Cardiovascular: Negative for chest pain, palpitations, and edema, Respiratory: Negative for shortness of breath, cough, wheezing, and pleuritic chest pain, Abdomen/GI: Negative for abdominal pain, nausea, vomiting, diarrhea, and constipation, Back: Negative for injury and pain, Skin: Negative for injury, rash, and discoloration, Neuro: Negative for headache, weakness, numbness, tingling, and seizure. 17:54 MS/extremity: Positive for pain, tenderness, of the right wrist. Exam: 17:54 Eyes: Pupils equal round and reactive to light, extra-ocular motions intact. Lids and jr8 lashes normal. Conjunctiva and sclera are non-icteric and not injected. Cornea within normal limits. Periorbital areas with no swelling, redness, or edema. ENT: Nares patent. No nasal discharge, no septal abnormalities noted. Tympanic membranes are normal and external auditory canals are clear. Oropharynx with no redness, swelling, or masses, exudates, or evidence of obstruction, uvula midline. Mucous membranes moist. Neck: Trachea midline, no thyromegaly or masses palpated, and no cervical lymphadenopathy. Supple, full range of motion without nuchal rigidity, or vertebral point tenderness. No Meningismus. Cardiovascular: Regular rate and rhythm with a normal S1 and S2. No gallops, murmurs, or rubs. Normal PMI, no JVD. No pulse deficits. Respiratory: Lungs have equal breath sounds bilaterally, clear to auscultation and percussion. No rales, rhonchi or wheezes noted. No increased work of breathing, no retractions or nasal flaring. Abdomen/GI: Soft, non-tender, with normal bowel sounds. No distension or tympany. No guarding or rebound. No evidence of tenderness throughout. Back: No spinal tenderness. No costovertebral tenderness. Full range of motion. Skin: Warm, dry with normal turgor. Normal color with no rashes, no lesions, and no evidence of cellulitis. Neuro: Awake and alert, GCS 15, oriented to person, place, time, and situation. Cranial nerves II-XII grossly intact. Motor strength 5/5 in all extremities. Sensory grossly intact. Cerebellar exam normal. Normal gait. 17:54 Musculoskeletal/extremity: Extremities: grossly normal except: noted in the right wrist: pain, ROM: intact in all extremities, full active range of motion, full passive range of motion, Circulation is intact in all extremities. Sensation intact. Vital Signs: 17:12 BP 137 / 81; Pulse 88; Resp 18 S; Temp 98.0(TE); Pulse Ox 100% on R/A; aa5 17:16 Weight 69.85 kg (R); Height 5 ft. 3 in. (160.02 cm) (R); Pain 9/10; aa5 17:16 Body Mass Index 27.28 (69.85 kg, 160.02 cm) aa5 Procedures: 18:17 Splinting: Splint applied to right wrist using wrist splint, applied by nurse. Examined jr8 by me, post splint application: neurovascular intact, 2+ distal pulses palpable, brisk capillary refill noted, Patient tolerated well. MDM: 17:18 Patient medically screened. jr8 18:17 Differential diagnosis: closed fracture, contusion, sprain, strain. Data reviewed: jr8 vital signs, nurses notes, radiologic studies, plain films, and as a result, I will discharge patient. Data interpreted: Pulse oximetry: on room air is 100 %. Interpretation: normal. Counseling: I had a detailed discussion with the patient and/or guardian regarding: the historical points, exam findings, and any diagnostic results supporting the discharge/admit diagnosis, radiology results, the need for outpatient follow up, a orthopedic surgeon, to return to the emergency department if symptoms worsen or persist or if there are any questions or concerns that arise at home. ED course: Discussed with patient that there does not appear to be any old or new fracture. Could possibly be ligamental pain at this point. Will splint and have her f/u with ortho for further evaluation and possible MRI . 05/02 17:31 Order name: XRAY Wrist RIGHT 3 view; Complete Time: 18:40 jr8 05/02 18:17 Order name: Splint - Wrist jr8 Administered Medications: No medications were administered Disposition: 05/03 12:08 Co-signature as Attending Physician, Aj Doe MD I agree with the assessment and peg plan of care. Disposition: 05/02/18 18:19 Discharged to Home. Impression: Pain in right wrist. - Condition is Stable. - Discharge Instructions: Wrist Pain. - Medication Reconciliation Form, Thank You Letter, Antibiotic Education, Prescription Opioid Use form. - Follow up: Abilio Rae MD; When: 2 - 3 days; Reason: Recheck today's complaints, Continuance of care, Re-evaluation by your physician. - Problem is new. - Symptoms have improved. Signatures: Dispatcher [employer] EDMS Zohra Burgos Corey, MD MD cha Calderon, Audri, RN RN aa5 Clement Mccall PA PA jr8 Corrections: (The following items were deleted from the chart) 05/02 18:44 18:19 05/02/2018 18:19 Discharged to Home. Impression: Pain in right wrist. Condition bd is Stable. Forms are Medication Reconciliation Form, Thank You Letter, Antibiotic Education, Prescription Opioid Use. Follow up: Abilio Rae; When: 2 - 3 days; Reason: Recheck today's complaints, Continuance of care, Re-evaluation by your physician. Problem is new. Symptoms have improved. jr8
--- NOTE | 2018-05-02 18:36 | RAD REPORT ---
EXAM DESCRIPTION: RAD - Wrist Right 3 View - 05/02/2018 6:09 pm CLINICAL HISTORY: Right wrist pain status post injury 2 weeks ago FINDINGS: No fracture or dislocation is seen.
[2018-05-02 18:55] VITALS: BP 137/81; TEMP 98; O2SAT 100
== END 2018-05-02 18:44 | disposition home or self-care (01) ==
LOC: ER 17:00
DX: M25.531 Pain in right wrist (principal); Z88.0 Allergy status to penicillin; Z88.1 Allergy status to other antibiotic agents; Z88.3 Allergy status to other anti-infective agents; Z88.5 Allergy status to narcotic agent; Z88.6 Allergy status to analgesic agent; Z88.8 Allergy status to other drugs, medicaments and biological substances; Z91.040 Latex allergy status; Z91.048 Other nonmedicinal substance allergy status
CPT/HCPCS: 99283

== ENCOUNTER 2018-07-24 01:51 | Emergency (ER) | payer OTHER ==
--- OUTSIDE RECORDS SUMMARY | 2018-07-24 01:53 | XMS REPORT ---
:1990 [facility] Address [address] [place] [address] Care Team Providers Name Role Phone Unavailable Unavailable Unavailable Payers Payer Name Policy Type Policy Number Effective Date Expiration Date Problems This patient has no known problems. Allergies, Adverse Reactions, Alerts Allergy Name Allergy Status Severity Reaction(s) Onset Inactive Treating Comments Type Date Date Clinician Penicillins DA Active U 2017-09 00:00: 00 doxycycline DA Active U 2017-09 00:00: 00 amoxicillin DA Active U 2017-09 00:00: 00 lamotrigine DA Active CO 2017-09 00:00: 00 tramadol DA Active U 2017-09 00:00: 00 trazodone DA Active U 2017-09 00:00: 00 meperidine DA Active U 2017-09 00:00: 00 ketorolac DA Active U 2017-09 00:00: 00 latex DA Active MO 2017-09 00:00: 00 TAPE DA Active CO 2017-09 00:00: 00 metoclopramide DA Active SV 2017-09 00:00: 00 tramadol DA Active U 2017-09 00:00: 00 Penicillins DA Active U 05-08 00:00: 00 doxycycline DA Active U 05-08 00:00: 00 amoxicillin DA Active U 05-08 00:00: 00 lamotrigine DA Active CO 05-08 00:00: 00 tramadol DA Active U 05-08 00:00: 00 trazodone DA Active U 05-08 00:00: 00 meperidine DA Active U 05-08 00:00: 00 ketorolac DA Active U 05-08 00:00: 00 latex DA Active MO 05-08 00:00: 00 doxycycline DA Active U 03-24 00:00: 00 amoxicillin DA Active U 03-24 00:00: 00 lamotrigine DA Active CO 03-24 00:00: 00 tramadol DA Active U 03-24 00:00: 00 latex DA Active MO 03-24 00:00: 00 Medications This patient has no known medications.
--- OUTSIDE RECORDS SUMMARY | 2018-07-24 01:53 | XMS REPORT | Continuity of Care Document ---
:1990 Author Organization Interface Problems Problem Status Onset Date Classification Date Comments Source Reported Medications Medication Details Route Status Patient Ordering Order Source Instructions Provider Date Allergies, Adverse Reactions, Alerts Substance Category Reaction Severity Reaction Status Date Comments Source type Reported Immunizations Immunization Date Given Site Status Last Updated Comments Source Results Order Results Value Reference Date Interpretation Comments Source Name Range Vital Signs Vital Sign Value Date Comments Source Encounters Location Location Encounter Encounter Reason Attending ADM DC Status Source Details Type Number For Provider Date Date Visit Outpatient [id number] FERNANDA 05/18 [place] [address] [place] Procedures Procedure Code Date Perfomer Comments Source
[2018-07-24] MEDS ORDERED: FAMOTIDINE 20 MG/2 ML VIAL IV ONE (02:33)
[2018-07-24] MEDS ORDERED: NA CHLORIDE 0.9% 1,000 ML ONE (02:33)
[2018-07-24] MEDS ORDERED: METHYLPREDNISOLONE 125 MG INJ ONE (02:33)
[2018-07-24 03:48] LABS: Absolute Lymphocytes (CBC) 1.7 K/uL (0.7-4.9); Absolute Monocytes 0.9 K/uL (0.1-1.3); Basophils % 0.5 % (0-1.3); Eosinophils % 0.5 % (0-4.4); Hematocrit 32.3 % (36.0-45.0); Lymphocytes % 16.3 % (15.3-44.8); MCH 31.6 pg (27.0-35.0); MCV 91.5 fL (80-100); Monocytes % 8.2 % (3.3-12.3); RBC Red Blood Cell Count 3.53 M/uL (3.86-4.86)
[2018-07-24 04:01] LABS: Protime INR 0.97
[2018-07-24 04:08] LABS: ALT/SGPT 16 U/L (12-78); AST/SGOT 18 U/L (15-37); Albumin 2.7 g/dL (3.4-5.0); Alkaline Phosphatase 120 U/L (45-117); BUN Blood Urea Nitrogen 4 mg/dL (7-18); Bicarbonate 21 mmol/L (21-32); Bilirubin Direct < 0.1 mg/dL (0-0.2); Bilirubin Total 0.2 mg/dL (0.2-1.0); Glucose Level 115 mg/dL (74-106); Magnesium 1.7 mg/dL (1.8-2.4); NT PRO-BNP 6 pg/mL (<125); Potassium 3.3 mmol/L (3.5-5.1); Protein, Total 6.6 g/dL (6.4-8.2); Sodium Level 139 mmol/L (136-145); Troponin (Emerg Dept Use Only) < 0.02 ng/mL (0.0-0.045)
--- NOTE | 2018-07-24 04:29 | ER ---
Nurse's Notes [facility] Name: Lona Marie Age: 28 yrs Sex: Female : 1990 Arrival Date: 07/24/2018 Time: 01:54 Bed 7 Private MD: Diagnosis: Angioedema. 3rd Trimester Presentation: 07/24 01:57 Presenting complaint: Patient states: she is 7 months and had a baby shower bb today then for the last 2.5 hours her tongue is swollen and burning and she is having chest pain radiating to her back pt has hx of seizures and takes Keppra 500 mg BID. She is also feeling dizzy and light-headed with spots before her eyes. Transition of care: patient was not received from another setting of care. Onset of symptoms was July 24, 2018. Risk Assessment: Do you want to hurt yourself or someone else? Patient reports no desire to harm self or others. Initial Sepsis Screen: Does the patient meet any 2 criteria? No. Patient's initial sepsis screen is negative. Does the patient have a suspected source of infection? No. Patient's initial sepsis screen is negative. Care prior to arrival: None. 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 - Social history:: Smoking status: Patient/guardian denies using tobacco, Patient/guardian denies using alcohol, street drugs. - Ebola Screening: : No symptoms or risks identified at this time. Screenin:40 Abuse screen: Denies threats or abuse. Nutritional screening: No deficits noted. ea Tuberculosis screening: No symptoms or risk factors identified. Fall Risk None identified. Assessment: 02:08 General: Appears uncomfortable, Behavior is calm, cooperative, appropriate for age. ea Pain: Complains of pain in chest Quality of pain is described as pressure. Neuro: Level of Consciousness is awake, alert, obeys commands, Oriented to person, place, time, situation. Cardiovascular: Patient's skin is warm and dry. Respiratory: Airway is patent Respiratory effort is even, unlabored, Respiratory pattern is regular, symmetrical. Derm: Skin is pink, warm \T\ dry. Musculoskeletal: Circulation, motion, and sensation intact. 02:14 Reassessment: Provided with O2 NC as order by Dr Barragan. ao 03:02 Reassessment: Patient appears in no apparent distress at this time. Patient and/or ao family updated on plan of care and expected duration. Pain level reassessed. Waiting on lab work. 04:49 Reassessment: DC instructions given to patient. patient agree with POC and to follow up ea with OG Doctor. Vital Signs: 02:00 BP 158 / 93; Pulse 104; Resp 18 S; Temp 97.9(O); Pulse Ox 100% on R/A; Weight 74.84 kg; bb Height 5 ft. 3 in. (160.02 cm) (R); Pain 8/10; 02:39 BP 149 / 94; Pulse 92; Resp 17; Pulse Ox 99% ; ea 03:02 BP 137 / 92; Pulse 92; Resp 16; Pulse Ox 100% ; ao 02:00 Body Mass Index 29.23 (74.84 kg, 160.02 cm) bb ED Course: 01:54 Patient arrived in ED. es 01:55 Tc Barragan MD is Attending Physician. pkl 01:56 Laxmi Tristan, HO is Primary Nurse. ea 01:59 Triage completed. bb 02:00 Arm band placed on Patient placed in an exam room, on a stretcher, on pulse oximetry. bb 02:08 Patient has correct armband on for positive identification. Bed in low position. Call ea light in reach. Side rails up X 1. 02:30 Inserted saline lock: 20 gauge in right forearm, using aseptic technique. Blood ao collected. 04:49 No provider procedures requiring assistance completed. IV discontinued, intact, ea bleeding controlled, No redness/swelling at site. Pressure dressing applied. Administered Medications: 02:45 Drug: NS 0.9% 1000 ml Route: IV; Rate: 100 ml/hr; Site: right forearm; ao 02:45 Drug: SOLU-Medrol 125 mg Route: IVP; Site: right forearm; ao 03:41 Follow up: Response: No adverse reaction ea 02:45 Drug: Pepcid 20 mg Route: IVP; Site: right forearm; ao 03:41 Follow up: Response: No adverse reaction ea 04:48 Drug: K-Dur 20 mEq Route: PO; ea 04:48 Follow up: Response: Medication administered at discharge. ea 04:48 Not Given (Duplicate Order): K-Dur 20 mEq PO once ea Outcome: 04:28 Discharge ordered by . mata 04:49 Discharged to home ambulatory. ea 04:49 Condition: stable 04:49 Discharge instructions given to patient, Instructed on discharge instructions, follow up and referral plans. Demonstrated understanding of instructions, follow-up care, medications, Prescriptions given X 1. 04:51 Patient left the ED. ea Signatures: Tc Barragan MD MD pkl Salyer, Edna es Ballard, Brenda, RN RN bb Ortiz, Alex, RN RN ao Antunez, Elena, RN RN ea
--- NOTE | 2018-07-24 04:29 | EDPHYS ---
Physician Documentation [facility] Name: Lona Marie Age: 28 yrs Sex: Female : 1990 Arrival Date: 07/24/2018 Time: 01:54 Bed 7 Private MD: ED Physician Tc Barragan HPI: 07/24 02:17 This 28 yrs old Female presents to ER via Ambulatory with unknown complaint. pkl 02:17 The patient presents with swelling of the tongue, chest pain. Onset: The pkl symptoms/episode began/occurred just prior to arrival, 3 hour(s) ago. Patient is 30 weeks . 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 - Social history:: Smoking status: Patient/guardian denies using tobacco, Patient/guardian denies using alcohol, street drugs. - Ebola Screening: : No symptoms or risks identified at this time. ROS: 02:17 Eyes: Negative for injury, pain, redness, and discharge. pkl 02:17 ENT: Positive for swollen tongue. 02:17 Neck: Negative for stiffness. 02:17 Cardiovascular: Positive for chest pain. 02:17 Respiratory: Negative for cough. 02:17 Abdomen/GI: Negative for abdominal pain, nausea, vomiting, and diarrhea. 02:17 Back: Negative for acute changes. 02:17 : Negative for urinary symptoms. 02:17 MS/extremity: Negative for acute changes. 02:17 Skin: Negative for rash. 02:17 Neuro: Negative for altered mental status. Exam: 02:17 Head/Face: Normocephalic, atraumatic. Eyes: Pupils equal round and reactive to light, pkl extra-ocular motions intact. Lids and lashes normal. Conjunctiva and sclera are non-icteric and not injected. Cornea within normal limits. Periorbital areas with no swelling, redness, or edema. 02:17 ENT: Mouth: Tongue: slightly swollen. 02:17 Neck: Exam negative for acute changes. 02:17 Chest/axilla: Exam negative for acute changes. 02:17 Cardiovascular: Rate: tachycardic, actual rate is 104 bpm, Rhythm: regular. 02:17 ECG was reviewed by the Attending Physician. 02:17 Respiratory: the patient does not display signs of respiratory distress, Respirations: normal, Breath sounds: are clear throughout. 02:17 Abdomen/GI: Inspection: gravid appearance, is noted, Bowel sounds: normal, Palpation: abdomen is soft and non-tender, in all quadrants. 02:17 Back: Exam negative for acute changes. 02:17 : Exam negative for acute changes. 02:17 Musculoskeletal/extremity: Exam is negative for acute changes. 02:17 Skin: Exam negative for rash. 02:17 Neuro: Orientation: is normal, Mentation: is normal, Cranial nerves: grossly normal, Motor: is normal. Vital Signs: 02:00 BP 158 / 93; Pulse 104; Resp 18 S; Temp 97.9(O); Pulse Ox 100% on R/A; Weight 74.84 kg; bb Height 5 ft. 3 in. (160.02 cm) (R); Pain 8/10; 02:39 BP 149 / 94; Pulse 92; Resp 17; Pulse Ox 99% ; ea 03:02 BP 137 / 92; Pulse 92; Resp 16; Pulse Ox 100% ; ao 02:00 Body Mass Index 29.23 (74.84 kg, 160.02 cm) bb MDM: 01:55 Patient medically screened. pkl 04:27 Data reviewed: vital signs, nurses notes, lab test result(s). pkl 07/24 02:15 Order name: Basic Metabolic Panel; Complete Time: 04:23 pkl 07/24 02:15 Order name: CBC with Diff; Complete Time: 03:53 pkl 07/24 02:15 Order name: LFT's; Complete Time: 04:23 pkl 07/24 02:15 Order name: Magnesium; Complete Time: 04: pkl 07/24 02:15 Order name: NT PRO-BNP; Complete Time: 04: pkl 07/24 02:15 Order name: PT-INR; Complete Time: 04: pkl 07/24 02:15 Order name: Troponin (emerg Dept Use Only); Complete Time: 04:23 pkl 07/24 02:15 Order name: Cardiac monitoring; Complete Time: 02: pkl 07/24 02:15 Order name: EKG - Nurse/Tech; Complete Time: 02: pkl 07/24 02:15 Order name: IV Saline Lock; Complete Time: 02:16 pkl 07/24 02:15 Order name: Labs collected and sent; Complete Time: 02: pkl 07/24 02:15 Order name: O2 Per Protocol; Complete Time: 02:17 pkl 07/24 02:15 Order name: O2 Sat Monitoring; Complete Time: 02: pkl 07/24 02:17 Order name: Heart Tones; Complete Time: 03:00 pkl Administered Medications: 02:45 Drug: NS 0.9% 1000 ml Route: IV; Rate: 100 ml/hr; Site: right forearm; ao 02:45 Drug: SOLU-Medrol 125 mg Route: IVP; Site: right forearm; ao 03:41 Follow up: Response: No adverse reaction ea 02:45 Drug: Pepcid 20 mg Route: IVP; Site: right forearm; ao 03:41 Follow up: Response: No adverse reaction ea 04:48 Drug: K-Dur 20 mEq Route: PO; ea 04:48 Follow up: Response: Medication administered at discharge. ea 04:48 Not Given (Duplicate Order): K-Dur 20 mEq PO once ea Disposition: 07/24/18 04:28 Discharged to Home. Impression: Angioedema. 3rd Trimester . - Condition is Stable. - Medication Reconciliation Form, Thank You Letter, Antibiotic Education, Prescription Opioid Use form. - Follow up: Private Physician; When: Tomorrow; Reason: Re-evaluation by your physician. - Problem is new. - Symptoms have improved. Signatures: Dispatcher [employer] EDMS Tc Barragan MD MD pkNatalia Shepard RN RN bb Ortiz, Alex, RN RN ao Antunez, Laxmi, RN RN ea Corrections: (The following items were deleted from the chart) 04:51 04:28 07/24/2018 04:28 Discharged to Home. Impression: Angioedema. 3rd Trimester ea . Condition is Stable. Forms are Medication Reconciliation Form, Thank You Letter, Antibiotic Education, Prescription Opioid Use. Follow up: Private Physician; When: Tomorrow; Reason: Re-evaluation by your physician. Problem is new. Symptoms have improved. pkl
[2018-07-24] MEDS ORDERED: POTASSIUM CL SA 10 MEQ TAB PO ONE (04:50)
[2018-07-24 05:18] VITALS: TEMP 97.9
[2018-07-24 05:20] VITALS: BP 137/92; O2SAT 100
--- NOTE | 2018-07-24 11:55 | EKG ---
Test Date: 2018-07-24 Test Time: 02:04:29 Doll Repairer: ASAD MEASUREMENT RESULTS: Intervals: Rate: 101 OH: 134 QRSD: 70 QT: 346 QTc: 448 Evans: P: 48 OH: 134 QRS: 74 T: 12 INTERPRETIVE STATEMENTS: Sinus tachycardia Nonspecific T wave abnormality Abnormal ECG Compared to ECG 01/07/2015 19:49:56 T-wave abnormality now present Sinus rhythm no longer present Atrial premature complex(es) no longer present Right-axis deviation no longer present Electronically Signed On 07-24-18 11:54:16 AIRLINE MANAGER by Steve Patel
== END 2018-07-24 04:51 | disposition home or self-care (01) ==
LOC: ER 01:51
DX: O26.893 Other specified pregnancy related conditions, third trimester (principal); T78.3XXA Angioneurotic edema, initial encounter; O99.413 Diseases of the circulatory system complicating pregnancy, third trimester; R00.0 Tachycardia, unspecified; Z3A.30 30 weeks gestation of pregnancy; R94.31 Abnormal electrocardiogram [ECG] [EKG]; O99.353 Diseases of the nervous system complicating pregnancy, third trimester; G40.909 Epilepsy, unspecified, not intractable, without status epilepticus; Z79.899 Other long term (current) drug therapy
CPT/HCPCS: 36415; 80048; 80076; 83735; 83880; 84484; 85025; 85610; 93005; 96374; 96375; 99284; J2930; J7030

== ENCOUNTER 2018-11-21 13:26 | Emergency (ER) | payer OTHER ==
--- OUTSIDE RECORDS SUMMARY | 2018-11-21 13:29 | XMS REPORT | Continuity of Care Document ---
:1990 Author Organization Interface Problems Problem Status Onset Classification Date Comments Source Date Reported LEFT LOWER Active [facility] TOOTH 8 Medical [facility] Medications Medication Details Route Status Patient Ordering Order Source Instructions Provider Date Allergies, Adverse Reactions, Alerts Substance Category Reaction Severity Reaction Status Date Comments Source type Reported Immunizations Immunization Date Given Site Status Last Updated Comments Source Results Order Results Value Reference Date Interpretation Comments Source Name Range Teeth Teeth EXAM: XR PANOREX 08/21 - [facility] Complete Complete /2017 - Medical Full Full Center Mouth DX Mouth DX DATE: 08/21/2018 at 0827 hours Read by: Guillermina Sotelo MD Dictated Date/time: 08/21/18 10:39 Electronically Signed by: Guillermina Sotelo MD 08/21/18 10:41 FINAL REPORT INDICATION: - Assessing for abscess COMPARISON: None available TECHNIQUE: A single Panorex view of the jaw. FINDINGS: There is no mandibular fracture. The temporomandibular joints are well aligned. Large crown erosion and periapical lucency is present at the left mandibular first molar. No additional caries or periapical lucencies are identified at the remaining teeth. Teeth #1, 4, 13, 16, 17, 20, and 32 are absent. IMPRESSION: Caries and periapical lucencies at the left mandibular first molar, tooth #19. No additional caries or periapical lucencies identified. Vital Signs Vital Sign Value Date Comments Source Encounters Location Location Encounter Encounter Reason Attending ADM DC Status Source Details Type Number For Provider Date Date Visit Outpatient [id number] FERNANDA 05/18 [facility] [place] Procedures Procedure Code Date Perfomer Comments Source
--- OUTSIDE RECORDS SUMMARY | 2018-11-21 13:29 | XMS REPORT ---
:1990 Author Organization [facility] Address [address] [place] [address] [address] [place] [address] Care Team Providers Name Role Phone Unavailable [...] U 2017-09 00:00: 00 lamotrigine DA Active [place] 2017-09 00:00: 00 tramadol DA Active U 2017-09 00:00: 00 trazodone DA Active U 2017-09 00:00: 00 meperidine DA Active U 2017-09 00:00: 00 metoclopramide DA Active [place] 2017-09 00:00: 00 ketorolac DA Active U 2017-09 00:00: 00 latex DA Active [place] 2017-09 00:00: 00 Penicillins DA Active U 2017-09 00:00: 00 doxycycline DA Active U 2017-09 00:00: 00 amoxicillin DA Active U 2017-09 00:00: 00 lamotrigine DA Active [place] 2017-09 00:00: 00 tramadol DA Active U 2017-09 00:00: 00 trazodone DA Active U 2017-09 00:00: 00 meperidine DA Active U 2017-09 00:00: 00 ketorolac DA Active U 2017-09 00:00: 00 latex DA Active [place] 2017-09 00:00: 00 TAPE DA Active [place] 2017-09 00:00: 00 metoclopramide DA Active [place] 2017-09 00:00: 00 tramadol DA Active U 2017-09 0 00:00: 00 Penicillins DA Active U 0 05-08 00:00: 00 doxycycline DA Active U 0 05-08 00:00: 00 amoxicillin DA Active U 0 05-08 00:00: 00 lamotrigine DA Active [place] 05-08 00:00: 00 tramadol DA Active U 0 05-08 00:00: 00 trazodone DA Active U 0 05-08 00:00: 00 meperidine DA Active U 0 05-08 00:00: 00 ketorolac DA Active U 0 05-08 00:00: 00 latex DA Active [place] 05-08 00:00: 00 doxycycline DA Active U 0 03-24 00:00: 00 amoxicillin DA Active U 0 03-24 00:00: 00 lamotrigine DA Active [place] 03-24 00:00: 00 tramadol DA Active U 0 03-24 00:00: 00 latex DA Active [place] 2015-0 03-24 00:00: 00 Medications This patient has no known medications. Results Test Description Test Time Test Comments Text Results Atomic Results Result Comments COMPREHENSIVE DRUG SCREEN 2018-09-22 13:52:00 Test Item Value Reference Range Comments DRUG TOXICOLOGY (test code=DRUG) SEE HARD COPY REPORT FAX TO [phone]
--- OUTSIDE RECORDS SUMMARY | 2018-11-21 13:29 | XMS REPORT | Summary of Care ---
:1990 Author Name LISHA FOSTER M.D. Address Unavailable Unavailable , Care Team Providers Name Role Phone BONITA PERSAUD M.D. Unavailable Unavailable Bonita Persaud MD Unavailable Unavailable JEYSON HUYNH AKADRIEL Unavailable Unavailable Functional Status Name Dates Details Functional status health issues are not documented Status: Name Dates Details Cognitive status health issues are not documented Status: Problems Name Dates Details follow-up (V24.2, Z39.2) Status: Active Medications Name Dates Details Keppra 500 MG Oral Tablet Refills: 0 Start : 07-Sep-2018 Active Allergies and Adverse Reactions Name Dates Details Amoxicillin TABS (Allergy) Status: Active Demerol TABS (Allergy) Status: Active Doxycycline Monohydrate CAPS (Allergy) Status: Active LaMICtal TABS (Allergy) Status: Active Latex Gloves (Allergy) Status: Active Penicillins (Allergy) Status: Active Toradol SOLN (Allergy) Status: Active Tramadol (Allergy) Status: Active Past Medical History Name Dates Details 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, 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: Resolved Procedures Procedure Dates Details History of Dental surgery Completed History of section low transverse Completed Immunization Name Dates Details Immunizations not documented Social History Name Dates Details - Status: Name Dates Details Never smoker Vital Signs Date Test Result Details [id number] BP Systolic 124 mm[Hg] Status: BP Diastolic 88 mm[Hg] Status: Height 67 in Status: Weight 159 lb Status: Body Mass Index Calculated 24.9 kg/m2 Status: Body Surface Area Calculated 1.83 m2 Status: Heart Rate 109 /min Status: Results Date Description Value Details Results not documented Plan of Care Name Dates Details Planned Observations Planned Goals not documented Planned Encounters Appointment; BONITA PERSAUD M.D. On: 05-Oct-2018 13:30 Interventions Provided InstructionsPatient Specific Education Given; Done: 07 Sep 2018Discussion/ SummaryMsMell Jean Baptiste is a 28 yo with a PMH significant for myoclonic seizures, GHTN, prior CS x 1 who presents today for 2 week postop check.1. Post- op check-Incision healing well, meeting all milestones2. -EDPS: 4- Baby doing well, home from NICU-Has not resumed sexual intercourse-Bottle feeding-Lochia wnl-BCM: Considering OCPs3. H/o Seizures-Currently on Keppra- Managed by outside Neurologist4. Health Maintenance-Needs Pap Smear at return visit-BCM: Considering OCPs. Readdress at return visit.Dispo: Meeting appropriate PP milestones. RTC in 4 weeks for final PP check. Will need Pap Smear at return visit.Discussed with: Dr. Nyasia Persaud M.D.PGY-3OB/BARGE MASTER. Instructions Name Dates Details Instructions not documented Encounters Appointment; BONITA PERSAUD M.D. On: 07-Sep-2018 15:00 Encounter Diagnosis: Problem not documented
--- NOTE | 2018-11-21 14:03 | RAD REPORT ---
EXAM DESCRIPTION: RAD - Wrist Right 3 View - 11/21/2018 1:56 pm CLINICAL HISTORY: Right wrist pain status post injury FINDINGS: No fracture or dislocation is seen. If the patient continues to have symptoms to suggest a n occult fracture then a followup plain film series in 7 days would be recommended.
--- NOTE | 2018-11-21 14:05 | RAD REPORT ---
EXAM DESCRIPTION: RAD - Hand Right 3 View - 11/21/2018 1:57 pm CLINICAL HISTORY: Right hand pain status post injury FINDINGS: No fracture or dislocation is seen.
--- NOTE | 2018-11-21 14:34 | ER ---
Nurse's Notes [facility] Name: Lona Marie Age: 28 yrs Sex: Female : 1990 Arrival Date: 11/21/2018 Time: 13:27 Bed 10 Private MD: Diagnosis: Contusion of wrist Presentation: 11/21 13:31 Presenting complaint: Right hand and wrist pain after mechanical fall from standing hb onto outstretched hand today. Transition of care: patient was not received from another setting of care. Onset of symptoms was November 21, 2018. Risk Assessment: Do you want to hurt yourself or someone else? Patient reports no desire to harm self or others. Care prior to arrival: None. 13:31 Method Of Arrival: Ambulatory hb 13:31 Acuity: SMITH 4 hb 14:10 Initial Sepsis Screen: Does the patient meet any 2 criteria? No. Patient's initial iw sepsis screen is negative. Does the patient have a suspected source of infection? No. Patient's initial sepsis screen is negative. Triage Assessment: 14:50 General: Appears in no apparent distress. Behavior is calm. Injury Description:. 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 - Social history:: Smoking status: Patient/guardian denies using tobacco. - Ebola Screening: : No symptoms or risks identified at this time. Screenin:58 Abuse screen: Denies threats or abuse. Denies injuries from another. Nutritional iw screening: No deficits noted. Tuberculosis screening: No symptoms or risk factors identified. Fall Risk None identified. Assessment: 14:10 General: Appears in no apparent distress. Behavior is calm. Pain: Complains of pain in iw right hand. Neuro: Level of Consciousness is awake, alert, obeys commands, Oriented to person, place, time, situation. Cardiovascular: Patient's skin is warm and dry. Respiratory: Respiratory effort is even, unlabored, Respiratory pattern is regular. Derm: Skin is intact, is healthy with good turgor. Musculoskeletal: Range of motion: limited in right wrist. Vital Signs: 13:32 BP 149 / 80; Pulse 66; Resp 16; Temp 97.9; Pulse Ox 100% on R/A; Pain 10/10; hb ED Course: 13:27 Patient arrived in ED. as 13:32 Triage completed. hb 13:32 Arm band placed on left wrist. hb 13:53 Geni Scott, RN is Primary Nurse. iw 13:55 Wrist Right 3 View XRAY In Process Unspecified. EDMS 13:57 Hand Right 3 View XRAY In Process Unspecified. EDMS 13:58 Clement Mccall PA is PHCP. jr8 13:58 Aj Doe MD is Attending Physician. jr8 14:10 Patient has correct armband on for positive identification. iw 14:58 No provider procedures requiring assistance completed. Patient did not have IV access iw during this emergency room visit. Administered Medications: No medications were administered Outcome: 14:33 Discharge ordered by . jr8 14:58 Discharged to home ambulatory. iw 14:58 Condition: good 14:58 Discharge instructions given to patient, Instructed on discharge instructions, follow up and referral plans. Demonstrated understanding of instructions, follow-up care, medications, Prescriptions given X 1. 14:59 Patient left the ED. iw Signatures: Dispatcher [employer] Pat Cheek as Geni Scott, HO TEAGUE iw Clement Mccall PA PA jr8 Codie Navarro RN RN
--- NOTE | 2018-11-21 14:34 | EDPHYS ---
Physician Documentation [facility] Name: Lona Marie Age: 28 yrs Sex: Female : 1990 Arrival Date: 11/21/2018 Time: 13:27 Bed 10 Private MD: ED Physician Aj Doe HPI: 11/21 14:24 This 28 yrs old Female presents to ER via Ambulatory with complaints of Wrist jr8 Injury, Thumb Injury. 14:24 The complaints affect the right wrist diffusely. Onset: The symptoms/episode jr8 began/occurred acutely, today. Modifying factors: The symptoms are alleviated by nothing, the symptoms are aggravated by movement. Associated signs and symptoms: The patient has no apparent associated signs or symptoms. The patient has not experienced similar symptoms in the past. The patient has not recently seen a physician. Patient fell landing on right wrist this morning after tripping on dog. Stated that since incident has had severe pain to wrist with bruising and swelling . 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 - Social history:: Smoking status: Patient/guardian denies using tobacco. - Ebola Screening: : No symptoms or risks identified at this time. ROS: 14:24 Eyes: Negative for injury, pain, redness, and discharge, ENT: Negative for injury, jr8 pain, and discharge, Neck: Negative for injury, pain, and swelling, Cardiovascular: Negative for chest pain, palpitations, and edema, Respiratory: Negative for shortness of breath, cough, wheezing, and pleuritic chest pain, Abdomen/GI: Negative for abdominal pain, nausea, vomiting, diarrhea, and constipation, Back: Negative for injury and pain, Skin: Negative for injury, rash, and discoloration, Neuro: Negative for headache, weakness, numbness, tingling, and seizure. 14:24 MS/extremity: Positive for ecchymosis, pain, swelling, tenderness, of the right hand and right wrist. Exam: 14:24 Eyes: Pupils equal round and reactive to light, extra-ocular motions intact. Lids and jr8 lashes normal. Conjunctiva and sclera are non-icteric and not injected. Cornea within normal limits. Periorbital areas with no swelling, redness, or edema. ENT: Nares patent. No nasal discharge, no septal abnormalities noted. Tympanic membranes are normal and external auditory canals are clear. Oropharynx with no redness, swelling, or masses, exudates, or evidence of obstruction, uvula midline. Mucous membranes moist. Neck: Trachea midline, no thyromegaly or masses palpated, and no cervical lymphadenopathy. Supple, full range of motion without nuchal rigidity, or vertebral point tenderness. No Meningismus. Cardiovascular: Regular rate and rhythm with a normal S1 and S2. No gallops, murmurs, or rubs. Normal PMI, no JVD. No pulse deficits. Respiratory: Lungs have equal breath sounds bilaterally, clear to auscultation and percussion. No rales, rhonchi or wheezes noted. No increased work of breathing, no retractions or nasal flaring. Abdomen/GI: Soft, non-tender, with normal bowel sounds. No distension or tympany. No guarding or rebound. No evidence of tenderness throughout. Back: No spinal tenderness. No costovertebral tenderness. Full range of motion. Skin: Warm, dry with normal turgor. Normal color with no rashes, no lesions, and no evidence of cellulitis. Neuro: Awake and alert, GCS 15, oriented to person, place, time, and situation. Cranial nerves II-XII grossly intact. Motor strength 5/5 in all extremities. Sensory grossly intact. Cerebellar exam normal. Normal gait. 14:24 Musculoskeletal/extremity: Extremities: grossly normal except: noted in the right hand and wrist: Patient has mild swelling and bruising to CMC region of right hand and dorsum or wrist. Exquisitely tender to anatomical snuff box. Moderate tenderness to dorsum of wrist, ROM: intact in all extremities, full active range of motion, full passive range of motion, limited active range of motion due to pain, limited passive range of motion due to pain, Circulation is intact in all extremities. Sensation intact. Vital Signs: 13:32 BP 149 / 80; Pulse 66; Resp 16; Temp 97.9; Pulse Ox 100% on R/A; Pain 10/10; hb Procedures: 14:24 Splinting: Splint applied to right hand, wrist using Orthoglass splint, applied by jr8 tech. Examined by me, post splint application: neurovascular intact, 2+ distal pulses palpable, brisk capillary refill noted, Patient tolerated well. MDM: 13:59 Patient medically screened. jr8 14:24 Data reviewed: vital signs, nurses notes, radiologic studies, plain films. Data jr8 interpreted: Pulse oximetry: on room air is 100 %. Interpretation: normal. Counseling: I had a detailed discussion with the patient and/or guardian regarding: the historical points, exam findings, and any diagnostic results supporting the discharge/admit diagnosis, radiology results, the need for outpatient follow up, a orthopedic surgeon, to return to the emergency department if symptoms worsen or persist or if there are any questions or concerns that arise at home. ED course: Discussed with patient although images were negative for acute fracture. She is very tender to anatomical snuff box region which could indicate scaphoid fracture. Because of this she needs to be splinted regardless and have f/u with orthopedics to further r/o scaphoid fracture. Patient good with this and will f/u . 11/21 13:34 Order name: Wrist Right 3 View XRAY; Complete Time: 14:05 hb 11/21 13:35 Order name: Hand Right 3 View XRAY; Complete Time: 14:06 11/21 14:24 Order name: Thumb Spica Splint; Complete Time: 14:47 [facility] Administered Medications: No medications were administered Disposition: 15:01 Co-signature as Attending Physician, Aj Doe MD I agree with the assessment and peg plan of care. Disposition: 11/21/18 14:33 Discharged to Home. Impression: Contusion of wrist. - Condition is Stable. - Discharge Instructions: Wrist Pain. - Prescriptions for Tylenol- Codeine #3 300-30 mg Oral Tablet - take 2 tablets by ORAL route every 6 hours As needed; 20 tablet. - Medication Reconciliation Form, Thank You Letter, Antibiotic Education, Prescription Opioid Use form. - Follow up: Private Physician; When: 2 - 3 days; Reason: Recheck today's complaints, Continuance of care, Re-evaluation by your physician. - Problem is new. - Symptoms have improved. - Notes: Anatomic snuff box tenderness. Needs scaphoid fracture r/o Signatures: Dispatcher [employer] EDMS Aj Doe MD MD cha Williams, Irene, RN RN Clement Cohn PA PA jr8 Codie Navarro, RN RN Corrections: (The following items were deleted from the chart) 14:59 14:33 11/21/2018 14:33 Discharged to Home. Impression: Contusion of wrist. Condition is iw Stable. Forms are Medication Reconciliation Form, Thank You Letter, Antibiotic Education, Prescription Opioid Use. Follow up: Private Physician; When: 2 - 3 days; Reason: Recheck today's complaints, Continuance of care, Re-evaluation by your physician. Problem is new. Symptoms have improved. jr8
[2018-11-21 15:49] VITALS: BP 149/80; TEMP 97.9; O2SAT 100
== END 2018-11-21 14:59 | disposition home or self-care (01) ==
LOC: ER 13:26
DX: S60.211A Contusion of right wrist, initial encounter (principal); W01.0XXA Fall on same level from slipping, tripping and stumbling without subsequent striking against object, initial encounter; Y93.9 Activity, unspecified; Y92.9 Unspecified place or not applicable; Z88.0 Allergy status to penicillin; Z88.1 Allergy status to other antibiotic agents; Z88.5 Allergy status to narcotic agent; Z88.8 Allergy status to other drugs, medicaments and biological substances; Z85.828 Personal history of other malignant neoplasm of skin; Z91.040 Latex allergy status
CPT/HCPCS: 99283

== ENCOUNTER 2021-10-01 12:31 | Emergency (ER) | payer OTHER ==
--- OUTSIDE RECORDS SUMMARY | 2021-10-01 12:41 | XMS REPORT | Continuity of Care Document ---
:1990 Author Organization [facility] t Address [address] [place] [address] Support Name Relationship Address Phone MEGHA HERNANDEZ [phone] [place] [phone] [place] [address] [facility] [place] [id number] Joaquín Significant Other [address] [phone] [place] [id number] [place] Father [address] [place] [phone] MEGHA, [BF] Unavailable [address] [facility] [phone] [place] [id number] MEGHA [address] [phone] [place] [id number] NOONE Unavailable [address] [facility] [phone] [place] [id number] [place] Unavailable . [phone] [place] [phone] JOAQUÍN [place] Significant [address] Unavailable [place] [phone] Joaquín [place] Significant Other [address] [place] [id number] [place] Unavailable [address] [facility] [address] [address] [place] [phone] W[place] Unavailable [address] [facility] [phone] [place] [id number] NONE Unavailable [address] [facility] [phone] [place] [id number] Care Team Providers Name Role Phone Pcp, Does Not Have A Primary Care Physician Luz Attending Clinician Unavailable ROX FOSTER Attending Clinician Unavailable Cookie PÉREZ Attending Clinician Unavailable Cookie Pérez DO Attending Clinician Cookie Coles Attending Clinician Unavailable VIVIAN Attending Clinician Unavailable PARUL WASSERMAN Attending Clinician Unavailable DINORAH Attending Clinician Unavailable Evelin Medina MD Attending Clinician Doctor Unassigned, Name Attending Clinician Unavailable Lazarus HUYNH Attending Clinician Singer MATTHEWS Attending Clinician Raul BALDWIN JR Attending Clinician Unavailable KRISTIN Attending Clinician Unavailable ROSANNA Attending Clinician Unavailable ROX KINSEY Attending Clinician Unavailable SHILOH Attending Clinician Unavailable TANJA Attending Clinician Unavailable ANA PAULA Attending Clinician Unavailable Ye_Dionna Attending Clinician Unavailable Anton MCNAIR Attending Clinician Unavailable LAZARUS Attending Clinician Unavailable HUMERA Attending Clinician Unavailable Visit, Nurse Attending Clinician Unavailable Elisa MATUTE, N Attending Clinician Bogdan TEAGUE Attending Clinician Unavailable RACHEL Attending Clinician Unavailable TOMI Attending Clinician Unavailable Physician, Primary or Family Admitting Clinician Unavailabl e Way, L Admitting Clinician Unavailable Referred Admitting Clinician Unavailable Kendrick Awad Admitting Clinician Unavailable Danita Admitting Clinician Unavailable Ye_Dionna Admitting Clinician Unavailable LAZARUS Admitting Clinician Unavailable Payers Payer Name Policy Type Policy Number Effective Date Expiration Date [facility] [id number] 2018 CHOICE MEDICAID 00:00:00 Advance Directives Directive Decision Effective Termination Comments Source Date Date Healthcare Agents on N/A [facility] FileNameRelationshipHealthcare [place] [facility] Agent Medical RelationshipCommunicationEll[facility] [phone] (Mobile) Problems Condition Condition Condition Status Onset Resolution Last Treating Co mments Source Name Details Category Date Date Treatment Clinician Date Abdominal Abdominal Disease Active Uni vers pain pain 6-26 ity of 00:00: [place] 00 Medical Branch Inadequate Inadequate Disease Active U nivers pain pain 6-25 ity of control control 00:00: [place] [facility] Pain of Pain of Disease Active 2018- Univers female female 5-23 it[facility] genitalia [facility] Pain Pain Disease Active Overview: Univer s pelvic pelvic 5-22 Formattin ity of 00:00: g of this [place] 00 note Medical might be Branch different from the original. Added automatic ally from request for surgery [id number] Irregular Irregular Disease Active Uni vers menstrual menstrual 5-14 ity of cycle cycle 00:00: 00 Medical Branch Abnormal Abnormal Disease Active Unive rs vaginal vaginal 5-14 ity of bleeding bleeding 00:00: [place] 00 Medical Branch PCOS PCOS Disease Active Univers (polycysti (polycysti 5-14 it [place] of c ovarian c ovarian [place] syndrome[place] syndrome[place] 00 [facility] Depo-Prove Depo-Prove Disease Active U nivers ra ra 5-14 ity of contracept [place] status duyen status 00 Md dical Branch PCOS PCOS Disease Active Univers (polycysti (polycysti 5-14 it y of c ovarian c ovarian 00:[place] syndrome[place] syndrome[place] 00 [facility] Well woman Well woman Disease Active U nivers exam exam 2-06 ity of 00:00: [place] [facility] Screen for Screen for Disease Active U nivers STD STD 2-06 ity of (sexually (sexually 00:[place] transmit[place] transmitte 00 Me dical d disease) d disease) Br anch History of History of Disease Active U nivers seizures seizures 2-06 ity of 00:00: [place] 00 Medical Branch BMI BMI Disease Active 2018- Univers 28.0-28.9, 28.0-28.9, 2-06 it y of adult adult 00:00: [place] 00 Medical Branch Over Over Disease Active Univers weight weight 2-06 ity of 00:00: [place] [facility] History of History of Disease Active U nivers seizures seizures 2-06 ity of 00:00: [place] [id number] Medical Branch History of 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 [place] [facility] Pelvic Pelvic Problem Active Univers pain pain ity of [place] [facility] Pelvic Pelvic Problem Active Univers inflammato inflammato it [place] of [place] disease ry disease [place] (PID) (PID) Physici ans Irregular Irregular Problem Active Uni vers bleeding bleeding ity of [place] [facility] Problem Active U nivers follow-up follow-up ity of [place] [facility] Bacterial Bacterial Problem Active Uni vers vaginosis [facility]osis [facility] Yeast Yeast Problem Active Univers infection infection ity of [place] [facility] Abnormal Abnormal Problem Active Unive rs uterine uterine ity of bleeding bleeding [place] [facility] Anemia Anemia Problem Active Univers ity of [place] [facility] Allergies, Adverse Reactions, Alerts Allergy Allergy Status Severity Reaction(s) Onset Inactive Treating Comm ents Source Name Type Date Date Clinician MEPERIDI DRUG Active Rash 2020-09 Univers NE INGREDI 09-22 ity of 00:00: [place] 00 Medical Branch Meperidi Propensi Active Rash 2020-09 Univer s ne ty to 09-22 ity of adverse 00:00: [place] reaction 00 Medical s Branch metoclop DA Active U [facility] [place] 00[facility] 00 [facility] ketorola DA Active U 2020-0 [facility] c [facility] [place] 00:00: [facility] 00 are [facility] Center Latex, DA Active U RASH [facility] Natural 12-27 [place] Rubber 00:00: [facility] 00 are Medical Center doxycycl DA Active U RASH, THROAT 0 HC A ine SWELLING 12-27 [facility] 00:[facility]: [facility] 00 are [facility] amoxicil DA Active U RASH, THROAT 2020-0 HC A jami SWELLING 12-27 [facility] 00:00: [facility] 00 [facility] tramadol DA Active U RASH, THROAT HC A SWELLING - [place] 00:00: [facility] 00 [facility] metoclop DA Active U RASH, THROAT 2020-0 HC A ramide SWELLING 12-27 [facility] 00:00: [facility] 00 [facility] ketorola DA Active U RASH, THROAT HC A c SWELLING 12-27 [place] 00:00: [facility] 00 are [facility] Latex, DA Active U 0 [facility] [place] Rubber 00:00: [facility] 00 [facility] doxycycl DA Active U 2020-0 [facility] ine 4-23 [place] 00:00: [facility] 00 [facility] amoxicil DA Active U 2020-0 [facility] jami 4-23 [place] 00:00: [facility] 00 [facility] tramadol DA Active U 2020-0 [facility] 4-23 [place] 00:[facility]: [facility] 00 [facility] Penicill DA Active SV 2019- [facility] ins 2-18 [place] 00:00: [facility] 00 [facility] doxycycl DA Active SV 2019- [facility] ine 2-18 [place] 00:[facility]: [facility] 00 [facility] adhesive DA Active SV 2020-1 [facility] tape 2-18 [place] 00:00: [facility] 00 [facility] amoxicil DA Active SV 2020-1 [facility] jami 2-18 [place] 00:00: [facility] 00 [facility] lamotrig DA Active SV 2020-1 [facility] ine 2-18 [place] 00:00: [facility] 00 [facility] tramadol DA Active SV 2020-1 [facility] 2-18 [place] 00:00: [facility] 00 [facility] trazodon DA Active SV 2020-1 [facility] e 2-18 [place] 00:00: [facility] 00 [facility] metoclop DA Active SV 2020-1 [facility] ramide 2-18 [place] 00:00: [facility] 00 [facility] ketorola DA Active SV 2020-1 [facility] c 2-18 [place] 00:00: [facility] 00 [facility] latex DA Active SV 2020-1 [facility] 2-18 [place] 00:00: [facility] 00 [facility] Penicill DA Active SV rash 2020-1 [facility] ins 2-18 [place] 00:00: [facility] 00 [facility] doxycycl DA Active SV rash 2020-1 [facility] ine 2-18 [place] 00:00: [facility] 00 [facility] adhesive DA Active SV raya 2020-1 [facility] tape 2-18 [place] 00:00: [facility] 00 [facility] amoxicil DA Active SV rash 2020-1 [facility] jami 2-18 [place] 00:00: [facility] 00 [facility] lamotrig DA Active SV rash, sob, 2020-1 [facility] tramadol DA Active SV hives 2020-1 [facility] 2-18 [place] 00:00: [facility] 00 [facility] trazodon DA Active SV rash 2020-1 [facility] e 2-18 [place] 00:00: [facility] 00 [facility] metoclop DA Active SV rash 2020-1 [facility] ramide 2-18 [place] 00:00: [facility] 00 [facility] ketorola DA Active SV hives 2020-1 [facility] c 2-18 [place] 00:00: [facility] 00 [facility] latex DA Active SV raya 2020-1 [facility] 2-18 [place] 00:00: [facility] 00 [facility] ketorola DA Active U 2020-1 [facility] c 2-10 Clear 00:00: [place] [facility] latex DA Active MO 2020-1 [facility] 2-10 Clear 00:00: [place] [facility] Penicill DA Active U 2020-1 [facility] ins 2-10 Clear 00:00: [place] 00 [facility] doxycycl DA Active U 2020-1 [facility] ine 2-10 Clear 00:00: [place] 00 [facility] adhesive DA Active CO 2020-1 [facility] tape 2-10 Clear 00:00: [place] 00 [facility] amoxicil DA Active U 2020-1 [facility] jami 2-10 Clear 00:00: [place] [facility] Penicill DA Active U RASH 2020-1 [facility] ins 2-10 Clear 00:00: [place] 00 [facility] doxycycl DA Active U RASH 2020-1 [facility] ine 2-10 Clear 00:00: [place] [facility] adhesive DA Active CO RASH 2020- [facility] tape 2-10 Clear 00:00: [place] [facility] amoxicil DA Active U RASH 2020- [facility] jami 2-10 Clear 00:00: [place] 00 [facility] lamotrig DA Active CO 2020-1 [facility] ine 2-10 Clear 00:00: [place] [facility] lamotrig DA Active CO RASH 2020-1 [facility] ine 2-10 Clear 00:00: [place] 00 [facility] tramadol DA Active U SHORTNESS OF 2020- HC A BREATH 2-10 Clear 00:00: [place] [facility] trazodon DA Active U RASH-UNKNOWN 2020- HC A e 2-10 Clear 00:00: [place] 00 [facility] metoclop DA Active SV SHORTNESS OF 2020- HC A ramide BREATH 2-10 Clear 00:00: [place] 00 [facility] ketorola DA Active U RASH 2020-1 [facility] c 2-10 Clear 00:00: [place] [facility] latex DA Active MO RASH 2020-1 [facility] 2-10 Clear 00:00: [place] 00 [facility] tramadol DA Active U 2020-1 [facility] 2-10 Clear 00:00: [place] 00 [facility] trazodon DA Active U 2020-1 [facility] e 2-10 Clear 00:00: [place] 00 [facility] metoclop DA Active SV 2020-1 [facility] ramide 2-10 Clear 00:00: [place] 00 [facility] Hydromor Propensi Active Other - See 2018-0 Personal i Univers phone ty to comments 03-03 ty ity of (Bulk) adverse 00:00: changes [place] reaction 00 "makes me Medic al s crazy" Branch please don't give. HYDROMOR DRUG Active Other-Cmnt 2018-0 Univ ers PHONE 03-03 ity of (BULK) 00:00: [place] 00 Medical Branch ketorola DA Active U RASH 2017- [facility] c 2-11 [facility] 00:[facility] [place] latex DA Active MO RASH 2017- [facility] 2-11 Woman's 00:00: [facility] [place] Penicill DA Active U RASH 2017-09 [facility] ins 2-11 Woman's 00:00: [facility] [place] doxycycl DA Active U RASH 2017-09 [facility] ine 2-11 Woman's 00:00: [facility] [place] amoxicil DA Active U RASH 2017-09 [facility] jami 2-11 Woman's 00:00: [facility] [place] lamotrig DA Active CO RASH 2017-09 [facility] ine 2-11 Woman's 00:00: [facility] [place] tramadol DA Active U SHORTNESS OF 2017-09 HC A BREATH 2-11 Woman's 00:00: [facility] [place] trazodon DA Active U RASH-UNKNOWN 2017-09 HC A e 2-11 Woman's 00:00: [facility] [place] meperidi DA Active U RASH-UNKNOWN 2017-09 HC A ne 2-11 Woman's 00:00: [facility] [place] metoclop DA Active SV SHORTNESS OF 2017-09 HC A ramide BREATH 2-11 Woman's 00:00: [facility] [place] Penicill DA Active U 2017-09 [facility] ins 2-11 Clear 00:00: [place] 00 [facility] doxycycl DA Active U 2017-09 [facility] ine 2-11 Clear 00:00: [place] 00 [facility] amoxicil DA Active U 2017- [facility] jami 2-11 Clear 00:00: [place] 00 [facility] lamotrig DA Active CO 2017-09 [facility] ine 2-11 Clear 00:00: [place] 00 [facility] tramadol DA Active U 2017-09 [facility]CA 2-11 Clear 00:00: [place] 00 [facility] trazodon DA Active U 2017-09 [facility] e 2-11 Clear 00:00: [place] 00 [facility] meperidi DA Active U 2018-1 [facility] ne 2-11 Clear 00:00: [place] 00 [facility] metoclop DA Active SV 2018-1 [facility]CA ramide 2-11 Clear 00:00: [place] 00 [facility] ketorola DA Active U 2018-1 [facility] c 2-11 Clear 00:00: [place] 00 [facility] latex DA Active MO 2018- [facility] 2-11 Clear 00:00: [place] 00 [facility] Penicill DA Active U 2018- [facility] ins 1-04 Woman's 00:00: [facility] [place] doxycycl DA Active U 2018-1 [facility] ine 1-04 Woman's 00:00: [facility] [place] amoxicil DA Active U 2018-1 [facility] jami 1- Woman's 00:00: [facility] [place] lamotrig DA Active CO 2017- [facility] ine -04 Woman's 00:00: [facility] [place] tramadol DA Active U 2018-1 [facility] 1-04 Woman's 00:00: [facility] [place] trazodon DA Active U 2018-1 [facility] e 1-04 Woman's 00:00: [facility] [place] meperidi DA Active U 2018-1 [facility] ne 1-04 Woman's 00:00: [facility] [place] ketorola DA Active U 2018- [facility] c -04 Woman's 00:00: [facility] [place] latex DA Active MO 2018-1 H[facility] 1-04 Woman's 00:00: [facility] [place] metoclop DA Active SV 2018-1 [facility] ramide 1-04 Woman's 00:00: [facility] [place] TAPE DA Active CO RASH 2018-1 [facility] 1-04 Clear 00:00: [place] 00 [facility] tramadol DA Active U 2018-1 HCA 0-29 Woman's 00:00: [facility] [place] Penicill DA Active U 2018-0 [facility] ins 9- Woman's 00:00: [facility] [place] doxycycl DA Active U 2018-0 [facility] ine 9- Woman's 00:00: [facility] [place] amoxicil DA Active U 2018-0 [facility] jami 9- Woman's 00:00: [facility] [place] lamotrig DA Active CO 2018-0 [facility] ine 9-02 Woman's 00:00: [facility] [place] tramadol DA Active U 2018-0 [facility] 9-02 Woman's 00:00: [facility] [place] trazodon DA Active U 2018-0 [facility] e 9-02 Woman's 00:00: [facility] [place] meperidi DA Active U 2018-0 [facility] ne 9- Woman's 00:00: [facility] [place] ketorola DA Active U 2018-0 [facility] c 9- Woman's 00:00: [facility] [place] latex DA Active MO 2018-0 [facility] 9-02 Woman's 00:00: [facility] [place] Adhesive Propensi Active Rash 2018-0 Transpore Uni vers ty to 6-15 tape ity of adverse 00:00: [place] reaction 00 Medical s Branch Metoclop Propensi Active Shortness of 2018-0 Univers ramide ty to Breath 6-15 ity of Hcl adverse 00:00: [place] reaction 00 Medical s Branch ADHESIVE Drug Active Rash 2018-0 Univers Class 6-15 ity of 00:00: [place] 00 Medical Branch METOCLOP DRUG Active SOB 2018-0 Univers RAMIDE INGREDI 6-15 ity of HCL 00:00: [place] 00 Medical Branch TRAZODON DRUG Active Rash 2017- Univers E INGREDI 2-08 ity of 00:00: [place] 00 Medical Branch Trazodon Propensi Active Rash 2017-1 Univer s e ty to 2-08 ity of adverse 00:00: [place] reaction 00 Medical s Branch Doxycycl Propensi Active Swelling 2015-0 Univ ers ine Hcl ty to 7-19 ity of adverse 00:00: [place] reaction 00 Medical s Branch Latex Propensi Active Rash 2016-0 Univers ty to 7-19 ity of adverse 00:00: [place] reaction 00 Medical s Branch Penicill Propensi Active Swelling 2015-0 Univ ers ins ty to 7-19 ity of adverse 00:00: [place] reaction Medical s Branch DOXYCYCL DRUG Active Swelling 2015-0 Univer s INE HCL INGREDI 7-19 ity of 00:00: [place] 00 Medical Branch LATEX DRUG Active Rash 2015-0 Univers INGREDI 7-19 ity of 00:00: [place] 00 Medical Branch PENICILL Drug Active Swelling 2015-0 Univer s INS Class 7-19 ity of 00:00: [place] 00 Medical Branch doxycycl DA Active U 2016-0 [facility] ine 7-19 Woman's 00:00: [facility] [place] amoxicil DA Active U 2015-0 [facility] jami 7-19 Woman's 00:00: [facility] 00 [facility] [place] lamotrig DA Active CO 0 [facility] ine 7-19 Woman's 00:00: [facility] 00 [facility] [place] tramadol DA Active U 2015-0 [facility] 7-19 Woman's 00:00: [facility] 00 [facility] [place] latex DA Active MO 2015-0 [facility] 7-19 Woman's 00:00: [facility] [place] Amoxicil Propensi Active Rash 2016-0 Univer s jami ty to 3-16 ity of adverse 00:00: [place] reaction 00 Medical s Branch Lamotrig Propensi Active Rash 2016-0 Univer s ine ty to 3-16 ity of adverse 00:00: [place] reaction 00 Medical s Branch Ketorola Propensi Active Rash 2016-0 Univer s c ty to 3-16 ity of Trometha adverse 00:00: [place] mine reaction 00 Medical s Branch Tramadol Propensi Active Rash 2016-0 Univer s ty to 3-16 ity of adverse 00:00: [place] reaction 00 Medical s Branch AMOXICIL DRUG Active Rash 2016-0 Univers JAMI INGREDI 3-16 ity of 00:00: [place] 00 Medical Branch LAMOTRIG DRUG Active Rash 2016-0 Univers INE INGREDI 3-16 ity of 00:00: [place] 00 Medical Branch KETOROLA DRUG Active Rash 2016-0 Univers C INGREDI 3-16 ity of TROMETHA 00:00: [place] MINE 00 Medical Branch TRAMADOL DRUG Active Rash 2016-0 Univers INGREDI 3-16 ity of 00:00: [place] 00 Medical Branch Amoxicil Allergy Active Univers jami TABS to drug ity of (finding [place] ) Physici ans Demerol Allergy Active Univers TABS to drug ity of (finding [place] ) Physici ans Doxycycl Allergy Active Univers ine to drug ity of Monohydr (finding [place] ate CAPS ) Physici ans LaMICtal Allergy Active Univers TABS to drug ity of (finding [place] ) Physici ans Latex Allergy Active Univers Gloves to drug ity of (finding [place] ) Physici ans Penicill Allergy Active Univers ins to drug ity of (finding [place] ) Physici ans Tramadol Allergy Active Univers to drug ity of (finding [place] ) Physici ans Toradol Allergy Active Univers SOLN to drug ity of (finding [place] ) Physici ans Social History Social Habit Start Date Stop Date Quantity Comments Source Exposure to Not sure University of SARS-CoV-2 [place] [facility] (event) Branch History of Cigarette Smoker Universi ty of tobacco use [place] [facility] History SDOH University o f Alcohol Frequency [facility] edical Branch History SDOH University o f Alcohol Std [place] [facility] Drinks Branch History SDOH University o f Alcohol Binge [place] Medic al Branch Alcohol intake 2021-09-30 2021-09-30 Current drinker of Un iversity of 00:00:00 00:00:00 alcohol (finding) [facility] edical Branch Alcohol Comment 2018-10-11 2018-10-11 occasionally Univers ity of 00:00:00 00:00:00 [facility] Tobacco use and 2018-05-03 2018-05-03 Never used Universit y of exposure 00:00:00 00:00:00 [facility] Sex [birth year] At [birth year] Universit y of 00:00:00 00:00:00 [facility] Smoking Status Start Date Stop Date Source Never smoked tobacco [facility] (finding) Physicians Current some day smoker 2018-05-03 00:00:00 [facility] [place] [facility] Ordered Filled Start Stop Current Ordering Indication Dosage Frequency Signature Comments Components Source Medication Medication Date Date Medication? Clinician (SIG) Name Name FENTanyl PF No 75ug 75 mcg, Un travis (SUBLIMAZE 09-30 Intramuscu it y of (PF)) 22:30: 21:28 lar, ONCE, [place] injection 00 :00 1 dose, On Medi shanice 75 mcg e Branch 09/30/21 at 1630, Routine diazePAM 2021- No 5mg 5 mg, Univers (VALIUM) 09-30 Oral, ity of tablet 5 mg 20:45: 20:22 [place]CE, 1 [place] :[place] dose, On Medical Tue Branch 09/30/21 at 1445, LUPE FENTanyl PF No 50ug 50 mcg, Un travis (SUBLIMAZE 09-30 Intramuscu it y of (PF)) 20:45: 20:23 lar, ONCE, [place] injection 00 :00 1 dose, On Medi shanice 50 mcg [facility] 09/30/21 at 1445, Routine dexamethaso No 10mg 10 mg, Uni vers ne 09-30 Intramuscu ity of (DECADRON 20:45: 20:24 lar, ONCE, [place] PHOSPHATE) 00 :00 1 dose, On Med ical injection [facility] 10 mg 09/30/21 at 1445, STAT dicyclomine Yes 20mg 20 mg, Univ ers (BENTYL) 12-22 Intramuscu ity o f injection 13:00: lar, QID, [place] as 20 mg 00 First dose Medical on [facility] 12/22/20 at 0800, Until Discontinu ed, Routine ondansetron 2020- No 4mg 4 mg, Slow Univers (ZOFRAN 12-22 IV Push, ity of (PF)) 06:15: 05:10 ONCE, 1 [place] injection 4 00 :00 dose, [place] [facility] ical mg 12/22/20 at Branch 0115, LUPE pantoprazol No 40mg 40 mg, IV Univers e 12-22 Piggyback, ity of (PROTONIX) 05:45: 05:11 ONCE, 1 [place] 40 mg in 00 :00 dose, [facility] NaCl 0.9% 12/22/20 at Bran ch (NS) 100 mL 0045, 100 MINI-BAG mL FENTanyl PF No 25ug 25 mcg, Un travis (SUBLIMAZE 12-22 Slow IV ity o f (PF)) 05:41: 05:42 Push, [place] injection 00 :00 ONCE, 1 Medical 25 mcg dose, [facility] 12/22/20 at 0045, STAT iohexol 2020- No [id number] 150mL 150 mL, U nivers (OMNIPAQUE 12-22 Intravenou it y of 350 05:30: 05:18 s, ONCE, 1 [place] BULK-150 00 :00 dose, [facility] mL) 12/22/20 at Branch injection 0030, 150 mL Routine NaCl 0.9% 2021-0 2021- No 1000mL at 999 Uni vers (NS) bolus 4-18 04-18 mL/hr, ity of infusion 04:30: 06:00 1,000 mL, Zay as 1,000 mL 00 :00 IV Medical Infusion, Branch ONCE, 1 dose, 12/21/20 at 2330, STAT ondansetron 0 2020- No 4mg 4 mg, Slow Univers (ZOFRAN 4-18 04-18 IV Push, ity of (PF)) 04:30: 04:24 ONCE, 1 [place] injection 4 00 :00 dose, Sat Med ical mg 12/21/20 at Branch 2330, LUPE pantoprazol 0 Yes [id number] 40mg Take 1 Univers e 4-18 tablet by ity of (PROTONIX) 00:00: mouth [place] 40 mg EC 00 daily. Medical tablet Branch dicyclomine 0 Yes [id number] 20mg Take 1 Univers 20 mg 4-18 tablet by ity of tablet 00:00: mouth [place] 00 every 6 Medical (six) Branch hours as needed for Abdominal pain. ondansetron 0 Yes [id number] 4mg Take 1 Univers (ZOFRAN) 4 4-18 tablet by ity of mg tablet 00:00: mouth [place] 00 every 8 Medical (eight) Branch hours as needed for Nausea and Vomiting (N/V). pantoprazol 0 Yes [id number] 40mg Take 1 Univers e 4-18 tablet by ity of (PROTONIX) 00:00: mouth [place] 40 mg EC 00 daily. Medical tablet Branch dicyclomine 0 Yes [id number] 20mg Take 1 Univers 20 mg 4-18 tablet by ity of tablet 00:00: mouth [place] 00 every 6 Medical (six) Branch hours as needed for Abdominal pain. ondansetron 2020-0 Yes [id number] 4mg Take 1 Univers (ZOFRAN) 4 4-18 tablet by ity of mg tablet 00:00: mouth [place] 00 every 8 Medical (eight) Branch hours as needed for Nausea and Vomiting (N/V). pantoprazol 2020-0 Yes [id number] 40mg Take 1 Univers e 4-18 tablet by ity of (PROTONIX) 00:00: mouth [place] 40 mg EC 00 daily. Medical tablet Branch dicyclomine Yes [id number] 20mg Take 1 Univers 20 mg 4-18 tablet by ity of tablet 00:00: mouth [place] 00 every 6 Medical (six) Branch hours as needed for Abdominal pain. ondansetron Yes [id number] 4mg Take 1 Univers (ZOFRAN) 4 4-18 tablet by ity of mg tablet 00:00: mouth [place] 00 every 8 Medical (eight) Branch hours as needed for Nausea and Vomiting (N/V). FENTanyl PF 2019-09- No 75ug 75 mcg, Un travis (SUBLIMAZE 2-10 12-10 Slow IV ity o f (PF)) 12:15: 11:15 Push, [place] injection 00 :00 ONCE, 1 Medical 75 mcg dose, [facility] 08/15/20 at 0615, Routine ondansetron 2019-09- No 4mg 4 mg, Slow Univers (ZOFRAN 2-10 12-10 IV Push, ity of (PF)) 11:00: 09:50 ONCE, 1 [place] injection 4 00 :00 dose, [facility] Med ical mg 08/15/20 Branch at 0500, LUPE iodixanol 2019-09- No 120mL 120 mL, Uni vers (VISIPAQUE 2-10 12-10 Intravenou it y of 320-150 mL) 10:45: 10:37 s, ONCE, 1 [place] injection 00 :00 dose, [facility] Medic al 120 mL 08/15/20 Branch at 0445, Routine FENTanyl PF 2019-09- No 75ug 75 mcg, Un travis (SUBLIMAZE 2-10 12-10 Slow IV ity o f (PF)) 10:28: 10:30 Push, [place] injection 00 :00 ONCE, 1 Medical 75 mcg dose, [facility] 08/15/20 at 0430, STAT acetaminoph 2019-09 Yes 4647 1{tbl} Take 1-2 Univers en-codeine 2-10 tablets by ity of 300-30 mg 00:00: mouth [place] tablet 00 every 6 Medical (six) Branch hours as needed for Pain (scale 4-6). Indication s: acute pain acetaminoph 2019-09 Yes 4647 1{tbl} Take 1-2 Univers en-codeine 2-10 tablets by ity of 300-30 mg 00:00: mouth [place] tablet 00 every 6 Medical (six) Branch hours as needed for Pain (scale 4-6). Indication s: acute pain acetaminoph 2019- Yes 4647 1{tbl} Take 1-2 Univers en-codeine 2-10 tablets by ity of 300-30 mg 00:00: mouth [place] tablet 00 every 6 Medical (six) Branch hours as needed for Pain (scale 4-6). Indication s: acute pain acetaminoph 2019- Yes 4647 1{tbl} Take 1-2 Univers en-codeine 2-10 tablets by ity of 300-30 mg 00:00: mouth [place] tablet 00 every 6 Medical (six) Branch hours as needed for Pain (scale 4-6). Indication s: acute pain acetaminoph 2019- Yes 4647 1{tbl} Take 1-2 Univers en-codeine 2-10 tablets by ity of 300-30 mg 00:00: mouth [place] tablet 00 every 6 Medical (six) Branch hours as needed for Pain (scale 4-6). Indication s: acute pain FENTanyl PF 2019- 2020- No 50ug 50 mcg, Un travis (SUBLIMAZE 04-14 Slow IV ity o f (PF)) 05:15: 04:15 Push, [place] injection 00 :00 ONCE, 1 Medical 50 mcg dose, [facility] 04/14/20 at 0015, Routine FENTanyl PF 2019-0 2020- No 50ug 50 mcg, Un travis (SUBLIMAZE 04-14 Slow IV ity o f (PF)) 03:45: 02:42 Push, [place] injection 00 :00 ONCE, 1 Medical 50 mcg dose, [facility] 04/13/20 at 2245, Routine iohexol 2019-0 2020- No 120mL 120 mL, Unive rs (OMNIPAQUE 04-14 Intravenou it y of 350 02:30: 02:30 s, ONCE, 1 [place] BULK-150 00 :00 dose, Sat Medica l mL) 04/13/20 at Branch injection 2130, 120 mL Routine ondansetron 2019-0 2020- No 4mg 4 mg, Slow Univers (ZOFRAN 04-14 IV Push, ity of (PF)) 02:15: 01:22 ONCE, 1 [place] injection 4 00 :00 dose, Sat Med ical mg 04/13/20 at Branch 2115, LUPE FENTanyl PF 2020-0 2020- No 50ug 50 mcg, Un travis (SUBLIMAZE 04-14- Slow IV ity o f (PF)) 02:15: 01:23 Push, [place] injection 00 :00 ONCE, 1 Medical 50 mcg dose, Sat Branch 04/13/20 at 2115, Routine acetaminoph 2020-0 Yes 4647 1{tbl} Take 1 Un travis en-codeine 8-08 tablet by ity of (TYLENOL-CO 00:00: mouth [place] DEINE #3) 00 every 4 Medical 300-30 mg (four) Branch tablet hours as needed for Pain (scale 1-3). Indication s: acute pain acetaminoph 2020-0 Yes 4647 1{tbl} Take 1 Un travis en-codeine 8-08 tablet by ity of (TYLENOL-CO 00:00: mouth [place] DEINE #3) 00 every 4 Medical 300-30 mg (four) Branch tablet hours as needed for Pain (scale 1-3). Indication s: acute pain acetaminoph 2020-0 Yes 4647 1{tbl} Take 1 Un travis en-codeine 8-08 tablet by ity of (TYLENOL-CO 00:00: mouth [place] DEINE #3) 00 every 4 Medical 300-30 mg (four) Branch tablet hours as needed for Pain (scale 1-3). Indication s: acute pain acetaminoph 2020-0 Yes 4647 1{tbl} Take 1 Un travis en-codeine 8-08 tablet by ity of (TYLENOL-CO 00:00: mouth [place] DEINE #3) 00 every 4 Medical 300-30 mg (four) Branch tablet hours as needed for Pain (scale 1-3). Indication s: acute pain acetaminoph 2020-0 Yes 4647 1{tbl} Take 1 Un travis en-codeine 8-08 tablet by ity of (TYLENOL-CO 00:00: mouth [place] DEINE #3) 00 every 4 Medical 300-30 mg (four) Branch tablet hours as needed for Pain (scale 1-3). Indication s: acute pain acetaminoph 2020-0 Yes 4647 1{tbl} Take 1 Un travis en-codeine 8-08 tablet by ity of (TYLENOL-CO 00:00: mouth [place] DEINE #3) 00 every 4 Medical 300-30 mg (four) Branch tablet hours as needed for Pain (scale 1-3). Indication s: acute pain morpHINE 2020-0 2020- No 4mg 4 mg, Slow Un travis injection 4 04-11-05 IV Push, ity of mg 00:45: 23:39 ONCE, 1 00 :00 dose, [facility] Medical 04/10/20 at Branch 1945, STAT FENTanyl PF 2019-0 2020- No 100ug 100 mcg, Univers (SUBLIMAZE 04-10 Slow IV ity o f (PF)) 23:45: 22:44 Push, [place] injection 00 :00 ONCE, 1 Medical 100 mcg dose, Wed Branch 04/10/20 at 1845, Routine morpHINE 2019-0 2020- No 4mg 4 mg, Slow Un travis injection 4 04-10- IV Push, ity of mg 23:15: 22:07 ONCE, 1 [place] 00 :00 dose, [facility] Medical 04/10/20 at Branch 1815, STAT iohexol 2019-0 2019- No 120mL 120 mL, Unive rs (OMNIPAQUE 04-10-05 Intravenou it y of 350 23:00: 22:50 s, ONCE, 1 [place] BULK-150 00 :00 dose, Wed Medica l mL) 04/10/20 at Branch injection 1800, 120 mL Routine ondansetron 2019-0 2020- No 4mg 4 mg, Slow Univers (ZOFRAN 04-10 IV Push, ity of (PF)) 22:00: 21:41 ONCE, 1 [place] injection 4 00 :00 dose, Wed Med ical mg 04/10/20 at Branch 1700, LUPE morpHINE 2019-0 2020- No 4mg 4 mg, Slow Un travis injection 4 04-10-05 IV Push, ity of mg 22:00: 21:41 ONCE, 1 [place] 00 :00 dose, [facility] Medical 04/10/20 at Branch 1700, STAT HYDROcodone 2020-0 2020- No 4647 1{tbl} Take 1 U nivers -acetaminop 04-10 tablet by it y of hen (NORCO) 00:00: 04:59 [place] 10-325 mg 00 :00 every 6 Medical tablet (six) Branch hours as needed for Pain (scale 7-10) for up to 7 days. Indication s: acute pain HYDROcodone 2019-0 2020- No 4647 1{tbl} Take 1 U nivers -acetaminop 8-05 08-13 tablet by it y of hen ([employer]) 00:00: 04:59 mouth [place] 10-325 mg 00 :00 every 6 Medical tablet (six) Branch hours as needed for Pain (scale 7-10) for up to 7 days. Indication s: acute pain HYDROcodone 2019-0 2020- No 4647 1{tbl} Take 1 U nivers -acetaminop 8-05 08-13 tablet by it y of hen ([employer]) 00:00: 04:59 mouth [place] 10-325 mg 00 :00 every 6 Medical tablet (six) Branch hours as needed for Pain (scale 7-10) for up to 7 days. Indication s: acute pain Acetaminoph Acetaminoph 2019-0 Yes JOSEFINA Take 1 po Univers en-Codeine en-Codeine 6-12 DZIADEK q6h PRN. ity of 300-30 MG 300-30 MG 00:00: M.D. Zay as Oral Tablet Oral Tablet 00 P hysici ans medroxyPROG medroxyPROG 2019-0 Yes SAMIR Take one Univers ESTERone ESTERone 6-10 DYKES M.D. tablet by ity of Acetate 10 Acetate 10 00:00: mouth [place] MG Oral MG Oral 00 twice Physici Tablet Tablet daily for ans vaginal bleeding. IBU 600 MG IBU 600 MG 2019-0 Yes SAMIR Q0.3333D TAKE 1 Univers Oral Tablet Oral Tablet 6-10 DYKES M.D. TABLET 3 ity of 00:00: TIMES [place] 00 DAILY Physici NEEDED. ans Ondansetron Ondansetron 2019-0 Yes SAMIR Take one 4 Univers HCl - 4 MG HCl - 4 MG 6-10 DYKES M.D. mg pill po ity of Oral Tablet Oral Tablet 00:00: when [place] 00 feeling Physici nauseated. ans Do not take more than two pills daily. Fluconazole Fluconazole 2020-0 Yes JUNE TAKE 1 Univers 150 MG Oral 150 MG Oral 5-29 KOTHARE TABLET 1 ity of Tablet Tablet 00:00: D.O. TIME ONLY. Zay as 00 Physici ans metroNIDAZO metroNIDAZO 2020-0 Yes JUNE Q0.5D TAKE 1 Univers LE 500 MG LE 500 MG 5-28 KOTHARE TABLET ity of Oral Tablet Oral Tablet 00:00: D.O. TWICE [place] 00 DAILY Physici UNTIL ans FINISHED. maalox:diph 2019-0 2020- No 15mL 15 mL, Uni vers enhydrAMINE 10-12 Oral, ity of :lidocaine 06:30: 05:29 ONCE, 1 [place] as 2 % viscous 00 :00 dose, [facility] Med ical 1:1:1 10/12/19 at Branch (FIRST-MOUT 0030, LUPE HWASH BLM) oral suspension 15 mL dexamethaso 2019-0 2020- No 8mg 8 mg, Univ ers ne 10-12 Intramuscu ity of (DECADRON 05:00: 04:10 lar, ONCE, [place] PHOSPHATE) 00 :00 1 dose, Medica l injection 8 Wed10/11/19 Br anch mg at 2300, STAT fluconazole 2020-0 2020- No [id number] 150mg Take 1 Univers 150 mg 10-12 tablet by ity of tablet 00:00: 05:59 mouth [place] 00 :00 now for 1 Medical dose. [place] nystatin 2020-0 Yes [id number] Apply to Univers 100,000 2-05 affected ity of unit/gram 00:00: area(s) 3 [place] as ointment 00 (three) Medical times Branch daily. nystatin 2020-0 Yes [id number] Apply to Univers 100,000 2-05 affected ity of unit/gram 00:00: area(s) 3 [place] ointment 00 (three) Medical times Branch daily. nystatin 2020-0 Yes [id number] Apply to Univers 100,000 2-05 affected ity of unit/gram 00:00: area(s) 3 [place] ointment 00 (three) Medical times Branch daily. nystatin 2020-0 Yes [id number] Apply to Univers 100,000 2-05 affected ity of unit/gram 00:00: area(s) 3 [place] ointment 00 (three) Medical times Branch daily. nystatin 2020-0 Yes [id number] Apply to Univers 100,000 2-05 affected ity of unit/gram 00:00: area(s) 3 [place] ointment 00 (three) Medical times Branch daily. nystatin 2020-0 Yes [id number] Apply to Univers 100,000 2-05 affected ity of unit/gram 00:00: area(s) 3 [place] ointment 00 (three) Medical times Branch daily. nystatin 2020-0 Yes [id number] Apply to Univers 100,000 2-05 affected ity of unit/gram 00:00: area(s) 3 [place] ointment 00 (three) Medical times Branch daily. nystatin 2020-0 Yes [id number] Apply to Univers 100,000 2-05 affected ity of unit/gram 00:00: area(s) 3 [place] ointment 00 (three) Medical times Branch daily. nystatin 2020-0 Yes [id number] Apply to Univers 100,000 2-05 affected ity of unit/gram 00:00: area(s) 3 [place] ointment 00 (three) Medical times Branch daily. nystatin 2020-0 Yes [id number] Apply to Univers 100,000 2-05 affected ity of unit/gram 00:00: area(s) 3 [place] ointment 00 (three) Medical times Branch daily. levoFLOXaci levoFLOXaci 2018-09 Yes MAO QD TAKE 1 Univers n 500 MG n 500 MG 0-23 GRUBBS TABLET it y of Oral Tablet Oral Tablet 00:00: M.D. DAILY [place] 00 UNTIL Physici FINISHED. ans metroNIDAZO metroNIDAZO 2018-09 Yes MAO Q0.5D TAKE 1 Univers LE 500 MG LE 500 MG 0-23 GRUBBS TABLET ity of Oral Tablet Oral Tablet 00:00: M.D. TWICE [place] 00 DAILY Physici UNTIL ans FINISHED. CefTRIAXone CefTRIAXone 2018- Yes MAO Inject Univers Sodium 250 Sodium 250 0-23 GRUBBS 250mg IM ity of MG MG 00:00: M.D. in clinic [place] Injection Injection 00 Physi ci Solution Solution ans Recon[facility] Reconstit[facility] ed ed Sprintec 28 Sprintec 28 2018-09 Yes MAO 1 QD TAKE 1 Univers 0.25-35 0.25-35 0-23 GRUBBS TABLET ity of MG-MCG Oral MG-MCG Oral 00:00: M.D. DAILY [place] Tablet Tablet 00 DIRECTED. Physic i ans medroxyPROG 2018- Yes [id number] 150mg Univers ESTERone 5-14 ity of (DEPO-PROVE 18:30: [place] RA) 00 Medical injection Branch 150 mg medroxyPROG 2019-0 Yes [id number] 150mg Univers ESTERone 5-14 ity of (DEPO-PROVE 18:30: [place] RA) 00 Medical injection Branch 150 mg medroxyPROG 2019-0 Yes [id number] 150mg Univers ESTERone 5-14 ity of (DEPO-PROVE 18:30: [place] RA) 00 Medical injection Branch 150 mg medroxyPROG 2019-0 Yes [id number] 150mg Univers ESTERone 5-14 ity of (DEPO-PROVE 18:30: [place] RA) 00 Medical injection Branch 150 mg medroxyPROG 2019-0 Yes [id number] 150mg Univers ESTERone 5-14 ity of (DEPO-PROVE 18:30: [place] RA) 00 Medical injection Branch 150 mg medroxyPROG 2019-0 Yes [id number] 150mg Univers ESTERone 5-14 ity of (DEPO-PROVE 18:30: [place] RA) 00 Medical injection Branch 150 mg medroxyPROG 2019-0 Yes [id number] 150mg Univers ESTERone 5-14 ity of (DEPO-PROVE 18:30: [place] RA) 00 Medical injection Branch 150 mg medroxyPROG 2019-0 Yes [id number] 150mg Univers ESTERone 5-14 ity of (DEPO-PROVE 18:30: [place] RA) 00 Medical injection Branch 150 mg medroxyPROG 2019-0 Yes [id number] 150mg Univers ESTERone 5-14 ity of (DEPO-PROVE 18:30: [place] RA) 00 Medical injection Branch 150 mg medroxyPROG 2019-0 Yes [id number] 150mg Univers ESTERone 5-14 ity of (DEPO-PROVE 18:30: [place] RA) 00 Medical injection Branch 150 mg medroxyPROG 2019-0 Yes [id number] 150mg Univers ESTERone 5-14 ity of (DEPO-PROVE 18:30: [place] RA) 00 Medical injection Branch 150 mg medroxyPROG 2019-0 Yes [id number] 150mg Univers ESTERone 5-14 ity of (DEPO-PROVE 18:30: [place] RA) 00 Medical injection Branch 150 mg medroxyPROG 2019-0 Yes [id number] 150mg Univers ESTERone 5-14 ity of (DEPO-PROVE 18:30: [place] RA) 00 Medical injection Branch 150 mg medroxyPROG 2018- Yes [id number] 150mg Univers ESTERone 5-14 ity of (DEPO-PROVE 18:30: [place] RA) 00 Medical injection Branch 150 mg medroxyPROG 2018- Yes [id number] 150mg 150 mg, Univers ESTERone 5-14 Intramuscu ity o f (DEPO-PROVE 18:30: lar, [place] RA) 00 [id number], Medical injection First dose Bran ch 150 mg on Wed01/17/19 at 1330, Until Discontinu ed, Routine medroxyPROG Yes [id number] 150mg Univers ESTERone 5-14 ity of (DEPO-PROVE 18:30: [place] RA) Medical injection Branch 150 mg medroxyPROG 2018- Yes [id number] 150mg Univers ESTERone 5-14 ity of (DEPO-PROVE 18:30: [place] RA) 00 Medical injection Branch 150 mg Keppra 500 Keppra 500 Yes M.D. U nivers MG Oral MG Oral 1-02 ity of Tablet Tablet 00:00: [place] 00 Physici ans Vital Signs Vital Name Observation Time Observation Value Comments Source Systolic blood 2021-09-30 108 mm[Hg] University of pressure 19:27:00 [facility] Diastolic blood 2021-09-30 97 mm[Hg] [place] o pressure 19:27:00 [facility] Heart rate 2021-09-30 108 /min [facility] 19:27:00 [facility] Body temperature 2021-09-30 37 Alisha University 19:27:00 [facility] Respiratory rate 2021-09-30 18 /min [facility] 19:27:00 [facility] Body weight 2021-09-30 71.668 kg University 19:27:00 [facility] BMI 2021-09-30 27.99 kg/m2 [facility] 19:27:00 [facility] Oxygen saturation 2021-09-30 100 /min [facility] in Arterial blood 19:27:00 [facility] by Pulse oximetry Branch Systolic blood 2021-07-23 146 mm[Hg] University of pressure 22:12:00 [facility] Diastolic blood 2021-07-23 104 mm[Hg] University o f pressure 22:12:00 [facility] Heart rate 2021-07-23 104 /min University of 22:12:00 [facility] Body temperature 2021-07-23 36.83 Alisha University of 22:12:00 [facility] Respiratory rate 2021-07-23 20 /min University of 22:12:00 [facility] Body weight 2021-07-23 71.668 kg University of 22:12:00 [facility] BMI 2021-07-23 27.99 kg/m2 University of 22:12:00 [facility] Oxygen saturation 2021-07-23 100 /min University of in Arterial blood 22:12:00 [facility] shanice by Pulse oximetry Branch Respiratory rate 2020-12-22 18 /min University of 06:05:00 [facility] Systolic blood 2020-12-22 138 mm[Hg] University of pressure 06:00:00 [facility] Diastolic blood 2020-12-22 93 mm[Hg] University o f pressure 06:00:00 [facility] Heart rate 2020-12-22 76 /min [place] of 06:00:00 [facility] Oxygen saturation 2020-12-22 96 /min University of in Arterial blood 06:00:00 [facility] shanice by Pulse oximetry Branch Body temperature 2020-12-22 37.17 Alisha [facility] 03:53:00 [facility] Body height 2020-12-22 160 cm University of 03:53:00 [facility] Body weight 2020-12-22 74.844 kg Simultaneous [facility] 03:53:00 filing. User may [place] Medic al not have seen Branch previous data. BMI 2020-12-22 29.23 kg/m2 [place] of 03:53:00 [facility] Respiratory rate 2020-12-22 18 /min University of 06:05:00 [facility] Systolic blood 2020-12-22 138 mm[Hg] University of pressure 06:00:00 [facility] Diastolic blood 2020-12-22 93 mm[Hg] University o f pressure 06:00:00 [facility] Heart rate 2020-12-22 76 /min University of 06:00:00 [facility] Oxygen saturation 2020-12-22 96 /min University of in Arterial blood 06:00:00 [place] Medi shanice by Pulse oximetry Branch Body temperature 2020-12-22 37.17 Alisha University of 03:53:00 [facility] Body height 2020-12-22 160 cm University of 03:53:00 [facility] Body weight 2020-12-22 74.844 kg Simultaneous University of 03:53:00 filing. User may [place] Medic al not have seen Branch previous data. BMI 2020-12-22 29.23 kg/m2 University of 03:53:00 [facility] Systolic blood 2020-08-15 140 mm[Hg] University of pressure 11:50:00 [facility] Diastolic blood 2020-08-15 84 mm[Hg] University o f pressure 11:50:00 [facility] Heart rate 2020-08-15 108 /min University of 11:50:00 [facility] Respiratory rate 2020-08-15 22 /min University of 11:50:00 [facility] Oxygen saturation 2020-08-15 99 /min University of in Arterial blood 11:50:00 [facility] by Pulse oximetry Branch Body temperature 2020-08-15 36.67 [facility] of :32:00 [facility] Body weight 2020-08-15 72.576 kg University of :32:00 [facility] BMI 2020-08-15 28.34 kg/m2 University of 09:32:00 [facility] Systolic blood 2020-08-15 140 mm[Hg] University of pressure 11:50:00 [facility] Diastolic blood 2020-08-15 84 mm[Hg] University o f pressure 11:50:00 [facility] Heart rate 2020-08-15 108 /min University of 11:50:00 [facility] Respiratory rate 2020-08-15 22 /min University of 11:50:00 [facility] Oxygen saturation 2020-08-15 99 /min University of in Arterial blood 11:50:00 [facility] by Pulse oximetry Branch Body temperature 2020-08-15 36.67 Alisha University of :32:00 [facility] Body weight 2020-08-15 72.576 kg University of :32:00 [facility] BMI 2020-08-15 28.34 kg/m2 University of 09:32:00 [facility] Respiratory rate 2020-04-14 18 /min University of 04:19:00 [facility] Systolic blood 2020-04-14 114 mm[Hg] University of pressure 03:00:00 [facility] Diastolic blood 2020-04-14 72 mm[Hg] University o f pressure 03:00:00 [facility] Heart rate 2020-04-14 76 /min University of 03:00:00 [facility] Branch Oxygen saturation 2020-04-14 98 /min University of in Arterial blood 03:00:00 [facility] shanice by Pulse oximetry Branch Body temperature 2020-04-14 37.22 Alisha University of 00:34:00 [facility] Body weight 2020-04-14 72.576 kg University of 00:34:00 [facility] BMI 2020-04-14 28.34 kg/m2 University of 00:34:00 [facility] Branch Respiratory rate 2020-04-14 18 /min University of 04:19:00 [facility] Branch Systolic blood 2020-04-14 114 mm[Hg] University of pressure 03:00:00 [facility] Diastolic blood 2020-04-14 72 mm[Hg] University o f pressure 03:00:00 [facility] Heart rate 2020-04-14 76 /min University of 03:00:00 [facility] Oxygen saturation 2020-04-14 98 /min University of in Arterial blood 03:00:00 [facility] shanice by Pulse oximetry Branch Body temperature 2020-04-14 37.22 Alisha University of 00:34:00 [facility] Body weight 2020-04-14 72.576 kg University of 00:34:00 [facility] BMI 2020-04-14 28.34 kg/m2 University of 00:34:00 [facility] Systolic blood 2020-04-10 137 mm[Hg] University of pressure 23:20:00 [facility] Diastolic blood 2020-04-10 66 mm[Hg] University o f pressure 23:20:00 [facility] Heart rate 2020-04-10 84 /min University of 23:20:00 [facility] Branch Respiratory rate 2020-04-10 16 /min University of 23:20:00 [facility] Branch Oxygen saturation 2020-04-10 97 /min University of in Arterial blood 23:20:00 [facility] shanice by Pulse oximetry Branch Body temperature 2020-04-10 37 Alisha University of 20:37:00 [facility] Body height 2020-04-10 160 cm University of 20:37:00 [facility] Body weight 2020-04-10 72.576 kg University of 20:37:00 [facility] BMI 2020-04-10 28.34 kg/m2 University of 20:37:00 [facility] Systolic blood 2020-04-10 137 mm[Hg] University of pressure 23:20:00 [place] [facility] Diastolic blood 2020-04-10 66 mm[Hg] University o f pressure 23:20:00 [facility] Branch Heart rate 2020-04-10 84 /min University of 23:20:00 [facility] Branch Respiratory rate 2020-04-10 16 /min University of 23:20:00 [facility] Oxygen saturation 2020-04-10 97 /min University of in Arterial blood 23:20:00 [place] Medi shanice by Pulse oximetry Branch Body temperature 2020-04-10 37 Alisha University of 20:37:00 [facility] Body height 2020-04-10 160 cm University of 20:37:00 [facility] Body weight 2020-04-10 72.576 kg University of 20:37:00 [facility] BMI 2020-04-10 28.34 kg/m2 University of 20:37:00 [facility] Systolic blood 2019-10-12 114 mm[Hg] University of pressure 06:06:00 [facility] Diastolic blood 2019-10-12 67 mm[Hg] University o f pressure 06:06:00 [facility] Oxygen saturation 2019-10-12 97 /min University of in Arterial blood 06:06:00 [facility] shanice by Pulse oximetry Branch Heart rate 2019-10-12 78 /min University of 06:05:00 [facility] Body temperature 2019-10-12 37 Alisha University of 06:05:00 [facility] Respiratory rate 2019-10-12 16 /min University of 06:05:00 [facility] Body weight 2019-10-12 70.308 kg University of 03:49:00 [facility] BMI 2019-10-12 27.46 kg/m2 University of 03:49:00 [facility] Systolic blood 2019-10-12 114 mm[Hg] University of pressure 06:06:00 [facility] Diastolic blood 2019-10-12 67 mm[Hg] University o f pressure 06:06:00 [facility] Oxygen saturation 2019-10-12 97 /min University of in Arterial blood 06:06:00 [place] Medi shanice by Pulse oximetry Branch Heart rate 2019-10-12 78 /min University of 06:05:00 [facility] Body temperature 2019-10-12 37 Alisha University of 06:05:00 [place] [facility] Branch Respiratory rate 2019-10-12 16 /min University of 06:05:00 [facility] Body weight 2019-10-12 70.308 kg University of 03:49:00 [facility] BMI 2019-10-12 27.46 kg/m2 University of 03:49:00 [facility] Systolic blood 2019-05-12 119 mm[Hg] University of pressure 15:58:00 [facility] Diastolic blood 2019-05-12 78 mm[Hg] University o f pressure 15:58:00 [facility] Heart rate 2019-05-12 75 /min University of 15:58:00 [facility] Body temperature 2019-05-12 36.28 [facility] University of 15:58:00 [facility] Respiratory rate 2019-05-12 18 /min University of 15:58:00 [facility] Body height 2019-05-12 160 cm University of 15:58:00 [facility] Body weight 2019-05-12 71.385 kg University of 15:58:00 [facility] BMI 2019-05-12 27.88 kg/m2 University of 15:58:00 [facility] Systolic blood 2019-05-12 119 mm[Hg] University of pressure 15:58:00 [facility] Diastolic blood 2019-05-12 78 mm[Hg] University o f pressure 15:58:00 [facility] Heart rate 2019-05-12 75 /min University of 15:58:00 [facility] Body temperature 2019-05-12 36.28 Alisha University of 15:58:00 [facility] Respiratory rate 2019-05-12 18 /min University of 15:58:00 [facility] Body height 2019-05-12 160 cm University of 15:58:00 [facility] Body weight 2019-05-12 71.385 kg University of 15:58:00 [facility] BMI 2019-05-12 27.88 kg/m2 University of 15:58:00 [facility] Systolic blood 2020-02-16 147 mm[Hg] University of pressure 14:30:00 [place] [facility] Diastolic blood 2020-02-16 103 mm[Hg] University o f pressure 14:30:00 [place] [facility] Body height 2020-02-16 67 [in_us] University of 14:30:00 [place] [facility] Weight 2020-02-16 162 [lb_av] University of 14:30:00 [place] [facility] Body mass index 2020-02-16 25.37 kg/m2 University o f (BMI) [Ratio] 14:30:00 [place] [facility] Body temperature 2020-02-16 98 [degF] Method: Temporal Univers ity of 14:30:00 [place] [facility] Heart Rate 2020-02-16 102 /min University of 14:30:00 [place] [facility] Systolic blood 2020-02-14 113 mm[Hg] Location: [facility]; [facility] 09:21:00 Position: Sitting [place] [facility] Diastolic blood 2020-02-14 72 mm[Hg] Location: [facility]; [facility] 09:21:00 Position: Sitting [place] [facility] Body height 2020-02-14 67 [in_us] University 09:21:00 [place] [facility] Weight 2020-02-14 161 [lb_av] University of 09:21:00 [place] [facility] Body mass index 2020-02-14 25.22 kg/m2 University o f (BMI) [Ratio] 09:21:00 [place] [facility] Body temperature 2020-02-14 95.3 [degF] [facility] 09:21:00 [place] [facility] Heart Rate 2020-02-14 87 /min [facility] 09:21:00 [place] [facility] Systolic blood 2020-01-31 108 mm[Hg] Location: [facility]; [facility] 08:57:00 Position: Sitting [place] [facility] Diastolic blood 2020-01-31 76 mm[Hg] Location: [facility]; [facility] 08:57:00 Position: Sitting [place] [facility] Body height 2020-01-31 67 [in_us] University of 08:57:00 [place] [facility] Weight 2020-01-31 159.375 [lb_av] University o f 08:57:00 [place] [facility] Body mass index 2020-01-31 24.96 kg/m2 University o f (BMI) [Ratio] 08:57:00 [place] [facility] Body temperature 2020-01-31 97.9 [degF] Method: Oral [facility] 08:57:00 [place] [facility] Heart Rate 2020-01-31 78 /min [place] of 08:57:00 [place] [facility] BP Systolic 2019-06-28 130 mm[Hg] Location: [facility]; [facility] 16:14:00 Position: Sitting [place] [facility] BP Diastolic 2019-06-28 82 mm[Hg] Location: [facility]; [facility] 16:14:00 Position: Sitting [place] [facility] Height 2019-06-28 67 [in_us] University 16:14:00 [place] [facility] Weight 2019-06-28 156 [lb_av] University 16:14:00 [place] [facility] Body Mass Index 2019-06-28 24.43 kg/m2 University o f Calculated 16:14:00 [place] [facility] Heart Rate 2019-06-28 114 /min University 16:14:00 [place] [facility] BP Systolic 2018-09-07 124 mm[Hg] University 16:12:00 [place] [facility] BP Diastolic 2018-09-07 88 mm[Hg] University 16:12:00 [place] [facility] Height 2018-09-07 67 [in_us] University 16:12:00 [place] [facility] Weight 2018-09-07 159 [lb_av] [facility] 16:12:00 [place] [facility] Body Mass Index 2018-09-07 24.9 kg/m2 University o f Calculated 16:12:00 [place] [facility] Heart Rate 2018-09-07 109 /min [facility] 16:12:00 [place] [facility] Procedures Procedure Date / Time Performing Clinician Source Performed CONSENT/REFUSAL FOR 2021-09-30 19:16:36 [facility] Name Medical Branch NOTICE OF PRIVACY 2021-07-23 21:42:53 Doctor Unassigned, No [facility] PRACTICES Name Medical Branch CONSENT/REFUSAL FOR 2021-07-23 21:42:28 Doctor Unassigned, No [facility] Name Medical Branch CT ABDOMEN PELVIS W WO 2020-12-22 05:25:30 Miladys Medina [facility] CONTRAST [facility] Branch LIPASE 2020-12-22 04:09:00 Miladys Medina [facility] COMP. METABOLIC PANEL 2020-12-22 04:09:00 Miladys Medina [facility] ([id number]) [facility] PROTHROMBIN TIME / INR 2020-12-22 04:09:00 Miladys Medina [facility] CBC WITH DIFF 2020-12-22 04:08:00 Miladys Medina [facility] URINALYSIS 2020-12-22 04:08:00 Miladys Medina [facility] NOTICE OF PRIVACY 2020-12-22 03:38:26 Doctor Unassigned, No [facility] PR[facility] Name Medical Branch CONSENT/REFUSAL FOR 2020-12-22 03:38:15 Doctor Unassigned, No Un iversity [facility] DIAGNOSIS AND TREATMENT Name Medical Branch CT ABDOMEN PELVIS W 2020-08-15 10:42:33 Donta Qiu [facility] CONTRAST Medical Branch COVID-19 (ID NOW RAPID 2020-08-15 09:46:00 Donta Qiu [facility] TESTING) Medical Branch LIPASE 2020-08-15 09:43:00 Donta Qiu [facility] HEPATIC FUNCTION PANEL 2020-08-15 09:43:00 Donta Qiu [facility] ([id number]) (ALB,T.PRO,BILI Medical Branch T,BU/BC,ALT,AST,ALK PHOS) BASIC METABOLIC PANEL 2020-08-15 09:43:00 Donta Qiu [facility] (NA, K, CL, CO2, Medical Branch GLUCOSE, BUN, CREATININE, CA) CBC WITH DIFF 2020-08-15 09:43:00 Donta Qiu [facility] PROTHROMBIN TIME / INR 2020-08-15 09:43:00 Donta Qiu [facility] ACTIVATED PARTIAL 2020-08-15 09:43:00 Donta Qiu [facility] THRMPLAS AARON Medical Branch URINALYSIS 2020-08-15 09:43:00 Lazarus Donta [facility] NOTICE OF PRIVACY 2020-08-15 09:26:35 Doctor Unassigned, No [facility] PRACTICES Name Medical Branch CONSENT/REFUSAL FOR 2020-08-15 09:24:44 Doctor Unassigned, No [facility] [place] DIAGNOSIS AND TREATMENT Name Medical Branch CT ABDOMEN PELVIS W 2020-04-14 02:26:48 Awilda Pérez [facility] CONTRAST Medical Branch BASIC METABOLIC PANEL 2020-04-14 01:22:00 Awilda Pérez [facility] (NA, K, CL, CO2, Medical Branch GLUCOSE, BUN, CREATININE, CA) CBC WITH DIFF 2020-04-14 01:22:00 Awilda Pérez [facility] Medical [place] NOTICE OF PRIVACY 2020-04-14 00:20:23 Doctor Unassigned, No [facility] Name Medical Branch CONSENT/REFUSAL FOR 2020-04-14 00:20:11 Doctor Unassigned, No Un iversity [facility] DIAGNOSIS AND TREATMENT Name Medical Branch CT ABDOMEN PELVIS W 2020-04-10 22:55:34 [facility] CONTRAST Medical Branch COMP. METABOLIC PANEL 2020-04-10 21:27:00 Meehan [facility] ([id number]) Medical Branch CBC WITH DIFF 2020-04-10 21:27:00 [facility] NOTICE OF PRIVACY 2020-04-10 20:34:36 Doctor Unassigned, No [facility] PRACTICES Name Medical Branch CONSENT/REFUSAL FOR 2020-04-10 20:29:45 Doctor Unassigned, No [facility]NOS[facility] AND TREATMENT Name Medical Branch [QL] CBC (INCLUDES 2020-02-16 00:00:00 [facility] DIFF/PLT) Physicians EMB 2020-02-14 00:00:00 [facility] Physicians . [facility] - Affirm VPIII 2020-02-14 00:00:00 [facility] (BV Panel) Physicians . [facility] - GC/Chlamydia 2020-02-14 00:00:00 [facility] [place] [facility] Phys[facility] [QL] CBC (INCLUDES 2020-02-14 00:00:00 [facility] DIFF/PLT) Physicians [QL] AMYLASE 2020-02-14 00:00:00 [facility] Physicians [QL] LIPASE 2020-02-14 00:00:00 [facility] Physicians . [facility] - Affirm VPIII 2020-01-31 00:00:00 [facility] [place] [facility] (BV Panel) Physicians . [facility] - GC/Chlamydia 2020-01-31 00:00:00 [facility] Physicians [QL] CBC (INCLUDES 2020-01-31 00:00:00 [facility] DIFF/PLT) Physicians XR NECK SOFT TISSUE 2019-10-12 05:59:03 Donta Qiu [facility] ADC,CLC OR LCC ONLY - 2019-10-12 04:07:00 Donta Qiu [facility] INFLUENZA A & B DIRECT Medical B ranch ANTIGEN RAPID STREP SCREEN FOR 2019-10-12 04:07:00 Donta Qiu [facility] GROUP A Medical Branch CONSENT/REFUSAL FOR 2019-10-12 03:38:20 Doctor Unassigned, No [facility] Name Medical Branch [[facility]] CULTURE, URINE, 2019-06-28 00:00:00 [facility] ROUTINE Physicians . [facility] - PAP w/reflex 2019-06-28 00:00:00 [facility] HPV Physicians US Pelvic with 2019-06-28 00:00:00 [place] [facility] [place] Trans[facility]aginal and Pelvic Physicia ns Doppler 84779 POCT TEST 2019-05-12 16:02:00 [facility] History of [facility] surgery Physicians History of [facility] section low transverse Physician s Encounters Start End Encounter Admission Attending Care Care Encounter Source Date/Time Date/Time Type Type Clinicians Facility Department ID 2021-07-06 Emergency [facility] [id number] Univers 13:36:32 ity [facility] 2021-07-05 [facility] [id number] Univers 10:22:47 ity [facility] 2021-07-04 Emergency [facility] [id number] Univers 11:22:30 ity [facility] 2021-07-04 Emergency [facility] [id number] Univers 10:48:55 [facility] 2021-[facility]-09 Inpatient [facility] MALISSA [id number] [facility] 10:52:00 [id number] [facility] 2020-12-27 Inpatient [facility] MALISSA [id number] [facility] 20:29:00 [id number] [facility] 2020-12-26 Inpatient EL Escobar, [facility] ENDO [id number] [facility] 10:00:00 Rik [id number] [facility] 2020-12-25 [facility] [id number] 10:00:00 Rik [id number] [facility] 2020-12-22 Inpatient [facility] MALISSA [id number] [facility] 21:46:00 [id number] [facility] 2020-08-23 Inpatient [facility] MALISSA [id number] [facility] 09:10:00 [id number] [facility] 2020-08-15 Inpatient [facility] MALISSA [id number] [facility] 14:57:00 Woman's [facility] 2020-08-05 Inpatient [facility] MALISSA [id number] [facility] 20:55:00 [id number] [facility] 2020-02-20 Outpatient KRISTIN, [facility] [id number] M [facility] 10:04:01 LISHA 2021-09-30 2021-09-30 Emergency [facility] [id number] Univers 13:31:00 16:34:00 AWILDA ity [facility] 2021-09-30 2021-09-30 Emergency [facility] 1.2.840.114 [id number] Univers 13:31:00 16:34:00 Awilda GUERRERO 350.1.13.10 ity [facility] 4.2.7.2.686 [facility] [id number] [address] 2021-07-23 2021-07-23 Emergency X [facility] ERT [id number] Univers 16:14:00 17:06:00 ity [facility] 2021-07-23 2021-07-23 Emergency [facility] [id number] Univers 16:14:00 17:06:00 YOLANDA 350.1.13.10 i ty [facility] 4.2.7.2.686 [facility] [id number] [address] 2021-07-23 2021-07-23 Emergency EM White, [facility] AERS [id number] [facility] 13:58:00 14:24:00 Burak [id number] [facility] 2021-07-23 2021-07-23 Emergency EM White, [facility] [id number] [facility] 13:58:00 14:24:00 Bruak 69 [facility] 2021-07-10 2021-07-10 Outpatient [facility] [id number] [place] 00:00:00 00:00:00 JESSI [address] 2021-06-13 2021-06-13 Outpatient [facility] [id number] [place] 00:00:00 00:00:00 [address]ESSI [address] 2021-04-17 2021-04-17 Emergency E MARIOLOLITA ANGEL SE MED [id number] 16:40:00 19:42:00 [facility] 2021-03-30 2021-03-30 Emergency E DINORAH SATURNINO MED [id number] BL 00:46:00 06:26:00 SABHA 2021-01-15 2021-01-15 Outpatient ITALIA Escobar OUTD [id number] [facility] 08:00:00 08:00:00 Rik [id number] [facility] 2021-01-09 2021-01-09 Emergency E LOLITA WASSERMAN SE MED [id number] 12:29:00 16:41:00 [facility] 2020-12-26 2020-12-26 Emergency [facility] [id number] [place] [address] 00:00:00 00:00:00 [facility] Method i 2020-12-21 2020-12-22 Emergency [facility] 1.2.301.495 [id number] 22:42:00 02:02:00 Miladys Guerrero 350.1.13.10 [place] 4.2.7.2.686 [place] [id number] 2020-12-21 2020-12-22 Emergency [facility] [id number] [facility] 22:42:00 02:02:00 Jasoncesar Guerrero 350.1.13.10 ity of [place] 4.2.7.2.686 [facility] [id number] [facility] 084 Branch 2020-12-21 2020-12-21 Orders Doctor SUDHA 1.2.840.114 [id number] 00:00:00 00:00:00 Only Unassigned, ALEM 350.1.13.10 [place] [facility] 4.2.7.2.686 [id number] [id number] 2020-12-21 2020-12-21 Orders Doctor SUDHA 1.2.840.114 [id number] Univers 00:00:00 00:00:00 Only Unassigned, ALEM 350.1.13.10 ity of [place] [facility] 4.2.7.2.686 Zay as [phone] [address] 2020-08-15 2020-08-15 Emergency Qiu, [facility] 1.2.230.444 [id number] 03:26:00 06:17:00 Donta Guerrero 350.1.13.10 [place] 4.2.7.2.686 [place] [id number] [facility] 2020-08-15 2020-08-15 Emergency Qiu, [facility] 1.2.735.785 [id number] [facility] 03:26:00 06:17:00 Donta Guerrero 350.1.13.10 i ty of [place] 4.2.7.2.686 [facility] [id number] [address] 2020-04-13 2020-04-13 [facility] 1.2.840.114 [id number] 19:38:00 23:40:00 Awilda Guerrero 350.1.13.10 [place] 4.2.7.2.686 [place] [id number] [facility] 2020-04-13 2020-04-13 [facility] 1.2.840.114 [id number] [facility] 19:38:00 23:40:00 Awilda Guerrero 350.1.13.10 ity of [place] 4.2.7.2.686 [facility] [id number] [address] 2020-04-13 2020-04-13 Orders Doctor HALEY 1.2.840.114 [id number] 00:00:00 00:00:00 Only Unassigned, ALEM 350.1.13.10 [place] [facility] 4.2.7.2.686 [id number] [facility] 2020-04-13 2020-04-13 Orders Doctor HALEY 1.2.840.114 [id number] [facility] 00:00:00 00:00:00 Only Unassigned, ALEM 350.1.13.10 ity of [place] HOSPITAL 4.2.7.2.686 Zay as [id number] [address] 2020-04-10 2020-04-10 Emergency , [facility] 1.2.903.878 [id number] 15:39:00 19:05:00 Huy Guerrero 350.1.13.10 [place] 4.2.7.2.686 [place] [id number] 2020-04-10 2020-04-10 Emergency Meehan, [facility] 1.2.815.117 [id number] Univers 15:39:00 19:05:00 Huy Guerrero 350.1.13.10 i ty of [place] 4[place]2.7.2.[place] [id number] [facility] [place] 084 Branch 2020-04-10 2020-04-10 Orders Doctor SUDHA 1.2.840.114 [id number] 00:00:00 00:00:00 Only Unassigned, ALEM 350.1.13.10 [place] [facility] 4.2.7.2.686 [id number] 2020-04-10 2020-04-10 Orders Doctor SUDHA 1.2.840.114 [id number] Univers 00:00:00 00:00:00 Only Unassigned, ALEM 350.1.13.10 ity of [place] [facility] 4.2.7.2.686 Zay as [id number] [place] [address] Branch 2020-04-08 2020-04-08 Outpatient R DENNY MARTINEZ, [facility] [id number] Univers 16:30:00 16:30:00 CYNTHIA [id number] ity [facility] 2020-03-11 2020-03-11 [facility] [id number] Univers 10:00:00 10:00:00 t; Gayatri HUSAIN and ity [facility], Gynecology Elma HUSAIN M.D. Continuity Ph [facility] ans 2020-02-28 2020-02-28 [facility] [id number] Univers 08:30:00 08:30:00 t; Gayatri HUSAIN ity [place], [place] Gayatri HUSAIN Physi ci ans 2020-02-23 2020-02-23 Dusty [facility] [id number] Univers 11:00:00 11:00:00 t; Gayatri HUSAIN ity [place] Gayatri HUSAIN Physi ci ans 2020-02-16 2020-02-16 [facility] [id number] Univers 14:15:00 14:15:00 t; Brennan ROCHA M.D. Gynecology Elma s JOSEFINA, Continuity Physi ci [facility] ans 2020-02-15 2020-02-15 Emergency E AMELIE MHSE MHSE [id number] MH 20:06:00 21:19:[address] [facility] 2020-02-14 2020-02-14 Appointmen SHILOH [facility] Obstetrics [id number] Univers 09:00:00 09:00:00 t; SAMIR MATAMOROS and ity of [place], M.D. Gynecology Elma avila M.D. Continuity Physi ci Clinic ans 2020-01-31 2020-01-31 Appointmen MARIBEL AGRAWAL Obstetrics [id number] Univers 08:30:00 08:30:00 t; Freddy WATKINS D.O. Gynecology Elma s JUNE, Continuity Physi ci D.O. Clinic [facility] 2019-12-20 2019-12-20 Appointmen ANA PAULA [facility] Orthopedics [id number] Univers 09:30:00 09:30:00 t; mayo CID [facility] Jillian M.D. [facility] [place] [facility] Physici Gayatri [facility] 2019-12-20 2019-12-20 Outpatient Raju_P MMG [facility] [id number] [place] 04:51:00 04:51:00 0415 [facility] 2019-12-18 2019-12-18 Emergency E TABBY, MHSE MHSE [id number] MH 20:54:00 21:40:[address] [facility] 2019-10-11 2019-10-12 Emergency [facility] ERT [id number] Univers 21:52:36 00:17:00 DONTA calixto [facility] 2019-10-11 2019-10-12 Emergency [facility] [id number] Univers 21:52:36 00:17:00 Donta Guerrero 350.1.13.10 i ty [facility] 4.2.7.2.686 [facility] [id number] [address] 2019-10-11 2019-10-12 Emergency [facility] 1.2.379.541 [id number] 21:52:36 00:17:00 Donta Guerrero 350.1.13.10 [place] 4.2.7.2.686 [place] [id number] 2019-10-11 2019-10-11 Orders Doctor SUDHA 1.2.840.114 [id number] Univers 00:00:00 00:00:00 Only Unassigned, ALEM 350.1.13.10 ity of [place] [address]2.686 Zay as [phone] [address] 2019-10-11 2019-10-11 Orders Doctor SUDHA 1.2.840.114 [id number] 00:00:00 00:00:00 Only Unassigned, ALEM 350.1.13.10 [place] [address]686 [id number] 009 2019-06-28 2019-06-28 Appointmen HUMERA [facility] Obstetrics [id number] [facility] 16:00:00 16:00:00 t; Gayatri CAVANAUGH and it y of [place] GRUBBS Continuity Physi ci M.D. 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 350.1.13.10 Nurse [place] [id number] MATERNAL [phone] & CHILD [address] [place] [address] 2019-05-10 2019-05-10 Telephone Elisa [facility] 1.2.840.114 [id number] Univers 00:00:00 00:00:00 Perri Olivier GLASS 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 MACHINE OPERATOR 350.1.13.10 it y of [facility] 4.2.7.2.686 Zay as MATERNAL [phone] Med ical & CHILD 107 [facility] 2019-05-10 2019-05-10 Telephone [facility] 1.2.840.114 [id number] 00:00:00 00:00:00 Perri Olivier GLASS PRODUCTION MACHINE OPERATOR 350.1.13.10 [facility] 4.2.7.2.686 MATERNAL [id number] & CHILD 107 [facility] 2019-04-03 2019-04-03 Patient Bogdan, CARMENIT 1.2.840.114 [id number] Univers 00:00:00 00:00:00 Secure Msg Ivet Y HEALTH 350.1.13.10 ity of CLINICS 4.2.7.2.[place] [id number] [address] 2019-04-03 2019-04-03 Patient Bogdan, CARMENIT 1.2.840.114 [id number] 00:00:00 00:00:00 Secure Msg Ivet Y HEALTH 350.1.13.10 CLINICS 4.2.7.2.686 [id number] [facility] 2019-03-07 2019-03-07 Patient Doctor SUDHA 1.2.840.114 [id number] Univers 00:00:00 00:00:00 Secure Msg Unassigned, ALEM 350.1.13.10 ity of [place] HOSPITAL 4.2.7.2.686 Zay as [id number] [address] 2019-03-07 2019-03-07 Patient Doctor SUDHA 1.2.840.114 [id number] 00:00:00 00:00:00 Secure Msg Unassigned, ALEM 350.1.13.10 [place] [facility] 4.2.7.2.686 [id number] [facility] 2019-02-27 2019-02-27 Patient Doctor SUDHA 1.2.840.114 [id number] Univers 00:00:00 00:00:00 Secure Msg Unassigned, ALEM 350.1.13.10 ity of [place] HOSPITAL 4.2.7.2.686 Zay as [phone] [address] 2019-02-27 2019-02-27 Patient Doctor SUDHA [place].2.840.114 [id number] 00:00:00 00:00:00 Secure Msg Unassigned, ALEM 350.1.13.10 [place] [facility] 4.2.7.2.686 [id number] 2018-10-13 2018-10-13 Dusty [facility] [id number] Univers 14:30:00 14:30:00 t; Woo FINK M.D. [place] JORDAN, Physici M.D. 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 [place] M.D. Physicla [place] Results Test Description Test Time Test Comments Results Result Comments Source SURGICAL SPECIMENS 2020-12-31 08:42:00 Test Item Value Reference Range Interpretation Comme nts SURGICAL RUN DATE: SPECIMENS 12/31/20 [facility] - LAB PAGE 1 RUN TIME: 08 (test code Specimen Inquiry RUN USER: INTERFACE = SURG) PATIENT: ROSITA JEAN BAPTISTE LOC: [facility] U #: [id number] AGE/SX: 30/ F ROOM: [facility] RE12/26/20[facility] DR: Olegario Srivastava MD : 92 BED: 02 DIS: 12/26/20 STATUS: DIS Keira TLOC: SPEC #: [id number] RECD: STATUS: SOUT REQ #: [id number] LAURYN: 12/26/[address]: Olegario Srivastava MD ENTERED: 12/26/20 SP TYPE: SURG OTHR DR: Rik Escobar MD,Alina Daniels MDORDERED: PATHGM4/3, PATH SPEC, H E STAIN/3 HISTOLOGY: TISSUE ID BLK PCS VIKA LEV / PROCEDURE DISPOSITION ____ ___ ___ ___ ___ ANTRUM BIOPSY A 1 3 GASTRIC BIOP SY B 1 3 GASTRIC BIOPSY C 1 3 TISSUES: A. ANTRUM BIOPSY - Gastric Antrum Bx B. GASTRIC BIOPSY - Gastric Bod y Bx C. GASTRIC BIOPSY - Gastric Fundus Bx ADDITIONAL TESTS ASR DISCLAIMER FOR IMMUNOHI STOCHEMISTRY: This test was developed and its performance characteristics determined by the [facility]. It has not been cleared or approved by the [place] Food and Drug Administration. e FDA has determined that such clearance or approval is not necessary. The test is used for clinical pu rposes. It should not be regarded as investigational or for research. [facility] is certified under CLIA-88 (Clinical Laboratory Improvement Amendment of 1988) as qualified to perfor m high-complexity clinical laboratory testing. All controls show appropriate reactivity. CLINICAL HISTORY Hematemesis. FINAL DIAGNOSIS A. STOMACH, ANTRUM, BIOPSY: - ANT RAL MUCOSA WITH REACTIVE GASTROPATHY - NEGATIVE FOR HELICOBACTER PYLORI BY IMMUNOHISTOCHEMIST RY - NO INTESTINAL METAPLASIA, DYSPLASIA, OR MALIGNANCY IS IDENTIFIED B. STOMACH, BODY, BIO PSY: - OXYNTIC MUCOSA WITH MILD CHRONIC INFLAMMATION - NEGATIVE FOR HELICOBACTER PY WON BY IMMUNOHISTOCHEMISTRY - NO INTESTINAL METAPLASIA, DYSPLASIA, OR MALIGNANCY IS IDENTIFIED CONTINUED ON NEXT PAGE RUN DATE: 12/31/20 [facility] - LAB PAGE 2 RUN TIME: 841 Specimen Inquiry RUN USER: INTERFACE SPEC #: [id number] PATIENT: ROSITA JEAN BAPTISTE #[id number] (Continued) FINAL DIAGNOSIS (Continued) C. STOMACH, FUNDUS, BIOPSY: - OXYNTIC MUCOSA WITH REACTIVE GASTROPATHY - NEGATIVE FOR HELICOBACTER PYLORI BY IMMUNOHISTOCHEMISTRY - NO INTESTINAL METAPLASIA, DYSPL SALVATORE, OR MALIGNANCY IS IDENTIFIED CPT: 22258 x3, 82138 x3 GROSS DESCRIPTION Receive d are three containers of formalin labeled with the patient's name, medical record number, and specimen source. A. Received labeled "gastric antrum biopsy" is a 0.6 cm in greatest dimension [place] sof t tissue biopsy which is submitted in toto in cassette A. B. Received labeled "gastric body biopsy " are three [place] soft tissue biopsies varying from 0.1 cm up to 0.7 cm in greatest dimension; they are submitted in toto in cassette B. C. Received labeled "gastric fundus biopsy" are three [place] soft tissue biopsies varying from 0.2 to 0.4 cm in greatest dimension; they are submitted in toto in cassette C. MD/patrick MICROSCOPIC DESCRIPTION Performed. Signed SIGNATURE ON FILE Eladia Montelongo MD 12/31/20 0842 END OF REPO RT COVID Asymptomatic IH [id number] 10:52:00 Test Item Value Reference Interpretation Comments Range COVID Negative Negative A negative resu lt does not Asymptomatic IH preclude the SARS-COV-2 NTX (test code = viralinfect ion and should not COVNONPUINTX) be used as the sole basis forpatient roshni gement decisions. Nega tive results must becombined with clinical observations, p atient history, andepidemiologi shanice information. Vi ral levels in clinicalsamples below the detection limit of the assay could lead tone gative results. This test was p erformed using the [employer] Smart TM COVID-19 PCRassay. This test was developed and i ts performancechar acteristics were determined by [facility]. Thi s test has notbeen FDA ashley ared or approved. This test is authorized by t heFDA under Emergency Use Authorization(E UA). The EUA willremain in e ffect unless it is terminated o r revoked by FDA . Testing p arameters have not been valida uche for screeningasympt omatic patients. This test was validated accor ding to the FDA's guidanced ocument "Policy for Diagnostics testing in LaboratoriesCer tified to Perform High Co mplexity Testing under C DEBORAH". First test? UnknownEmployed in Healthcare? UnknownSymptomatic as defined by CDC? UnknownHospitalizeddue to COVID? UnknownIn ICU due to COVID? UnknownResident in a congregate care setting? Unknown? UnknownAge at collection: YBASIC METABOLIC [id number] 21:38:00 Test Item Value Reference Range Interpretation Comments SODIUM (test code 139 mmol/L 136-145 N Please not e: New = NA) Reference Range Oct 2020 POTASSIUM (test 3.6 mmol/L 3.5-5.1 N code = K) CHLORIDE (test 106 mmol/L 98-107 N Please note: New code = CL) Reference Range Oct 2020 CARBON DIOXIDE 27 mmol/L 20-31 N Please note: New (test code = CO2) Reference Range Oct 2020 GLUCOSE (test code 100 mg/dL 74-106 N Please no te: New = GLU) Reference Range Oct 2020 BLOOD UREA 12 mg/dL 9-23 N Please note: Ne w NITROGEN (test Reference Ran ge Feb code = BUN) 2020 GLOMERULAR >=60 max >60 The estimated FILTRATION RATE estimate glomerular (test code = GFR) filtration rate is computed usingpatient ra ce, age (>18), sex, and serum creatinin e. If anyof the neede d data elements a re missing the Laboratory sayra ot compute an estimation of t he glomerular filtration rate . CREATININE (test 0.80 mg/dL 0.55-1.02 N Please note : New code = CREAT) Reference Rang e Oct 2020 CALCIUM (test code 9.4 mg/dL 8.7-10.4 N Please no te: New = CA) Reference Range Oct 2020 LIVER FUNCTION [id number] 21:38:00 Test Item Value Reference Range Interpretation Comments TOTAL PROTEIN (test 7.6 g/dL 5.7-8.2 N Please n ote: New code = PROT) Reference Range Oct 2020 ALBUMIN (test code = 5.3 g/dL 3.2-4.8 H Please note: New ALB) Reference Range Oct 2020 BILIRUBIN TOTAL (test 0.3 mg/dL 0.3-1.2 N Please note: New code = BILT) Reference Range Oct 2020 BILIRUBIN DIRECT (test < 0.1 mg/dL <0.3 N Pleas e note: New code = BILD) Reference Range Oct 2020 SGOT/AST (test code = 23 U/L <34 N Please note: New AST) Reference Range Oct 2020 SGPT/ALT (test code = 22 U/L 10-49 N Please note: New ALT) Reference Range Oct 2020 ALKALINE PHOSPHATASE 73 U/L 46-116 N Please note: New (test code = ALKP) Reference Range Oct 2020 [id number] 21:38:00 Test Item Value Reference Range Interpretation Comments LIPASE (test code = 32 U/L 12-53 N Please n ote: New LIP) Reference Range Oct 2020 CBC W/AUTO [id number] 21:24:00 Test Item Value Reference Range Interpretation Comments WHITE BLOOD CELL (test code = 9.8 x10 3/uL 4.8-10.8 N WBC) RED BLOOD CELL (test code = 4.53 x10 6/uL 4.20-5.40 N RBC) HEMOGLOBIN (test code = HGB) 14.0 g/dL 12.0-16.0 N HEMATOCRIT (test code = HCT) 42.6 % 37.0-47.0 N MEAN CELL VOLUME (test code = 94.0 fL 81.0-99.0 N MCV) MEAN CELL HGB (test code = MCH) 30.9 pg 27-31 N MEAN CELL HGB CONCENTRATION 32.9 G/DL 33-36.5 L (test code = MCHC) RED CELL DISTRIBUTION WIDTH 12.8 % 12.9-16.9 L (test code = RDW) PLATELET COUNT (test code = 377 x10 3/uL 150-440 N PLT) MEAN PLATELET VOLUME (test code 9.2 fL 8.9-12.4 N = MPV) NEUTROPHIL % (test code = NT%) 68.1 % 42.2-75.2 N LYMPHOCYTE % (test code = LY%) 26.0 % 20.5-51.1 N MONOCYTE % (test code = MO%) 4.6 % 1.7-9.3 N EOSINOPHIL % (test code = EO%) 0.5 % 0.0-7.0 N BASOPHIL % (test code = BA%) 0.5 % 0-2.5 N NEUTROPHIL # (test code = NT#) 6.66 x10 3/uL 1.80-7.70 N LYMPHOCYTE # (test code = LY#) 2.54 x10 3/uL 1.00-4.80 N MONOCYTE # (test code = MO#) 0.45 x10 3/uL 0.00-0.80 N EOSINOPHIL # (test code = EO#) 0.05 x10 3/uL 0.00-0.45 N BASOPHIL # (test code = BA#) 0.05 x10 3/uL 0.0-0.20 N PROTHROMBIN [id number] 21:22:00 Test Item Value Reference Range Interpretation Comments PROTHROMBIN TIME 10.9 SECONDS 10.3-12.9 N PATIENT (test code = PTP) INTERNATIONAL 0.97 INR UNIT 0.9-1.11 N The INR is us eful only NORMAL RATIO (test for monit oring code = INR) anticoagulant therapy.It may be unreliable in t he initial phase o f antigoagulation and in unstable patien ts. Indication for Anticoagulation Recommend ed INR 1. Prevention o f venous thomboembolism 2.0-3.0in high -risk patients; treat ment of venousthrombosi s and pulmonary embol ism aftera course o f heparin; preven tion of systemicembolis m in a variety of cond itions, including atria l fibrillation an d prothetic tissu e heart valves, 2. Pros thetic mechanical hear t valves; 2.5-3.5recurren t systemic emboli sm. BASIC METABOLIC [id number] 23:38:00 Test Item Value Reference Range Interpretation Comments SODIUM (test code 137 mmol/L 136-145 N Please not e: New = NA) Reference Range Oct 2020 POTASSIUM (test 3.9 mmol/L 3.5-5.1 N code = K) CHLORIDE (test 107 mmol/L 98-107 N Please note: New code = CL) Reference Range Oct 2020 CARBON DIOXIDE 22 mmol/L 20-31 N Please note: New (test code = CO2) Reference Range Oct 2020 GLUCOSE (test code 94 mg/dL 74-106 N Please no te: New = GLU) Reference Range Oct 2020 BLOOD UREA 7 mg/dL 9-23 L Please note: Ne w NITROGEN (test Reference Ran ge Feb code = BUN) 2020 GLOMERULAR >=60 max >60 The estimated FILTRATION RATE estimate glomerular (test code = GFR) filtration rate is computed usingpatient ra ce, age (>18), sex, and serum creatinin e. If anyof the neede d data elements a re missing the Laboratory sayra ot compute an estimation of t he glomerular filtration rate . CREATININE (test 0.80 mg/dL 0.55-1.02 N Please note : New code = CREAT) Reference Rang e Oct 2020 CALCIUM (test code 9.2 mg/dL 8.7-10.4 N Please no te: New = CA) Reference Range Oct 2020 LIVER FUNCTION [id number] 23:38:00 Test Item Value Reference Range Interpretation Comments TOTAL PROTEIN (test 7.4 g/dL 5.7-8.2 N Please n ote: New code = PROT) Reference Range Oct 2020 ALBUMIN (test code = 5.1 g/dL 3.2-4.8 H Please note: New ALB) Reference Range Oct 2020 BILIRUBIN TOTAL (test 0.5 mg/dL 0.3-1.2 N Please note: New code = BILT) Reference Range Oct 2020 BILIRUBIN DIRECT (test 0.1 mg/dL <0.3 N Pleas e note: New code = BILD) Reference Range Oct 2020 SGOT/AST (test code = 20 U/L <34 N Please note: New AST) Reference Range Oct 2020 SGPT/ALT (test code = 18 U/L 10-49 N Please note: New ALT) Reference Range Oct 2020 ALKALINE PHOSPHATASE 74 U/L 46-116 N Please note: New (test code = ALKP) Reference Range Oct 2020 [id number] 23:38:00 Test Item Value Reference Range Interpretation Comments LIPASE (test code = 37 U/L 12-53 N Please n ote: New LIP) Reference Range Oct 2020 UA RFLX MICR CULT IF [id number] 23:10:00 Test Item Value Reference Range Interpretation Comments UA COLOR (test code = YELLOW DISCRIPT YELLOW COLU) UA APPEARANCE (test code = CLEAR DISCRIPT CLEAR APPU) UA GLUCOSE DIPSTICK (test NEGATIVE mg/dL NEGATIVE code = DGLUU) UA BILIRUBIN DIPSTICK NEGATIVE NEGATIVE (test code = BILU) UA KETONE DIPSTICK (test NEGATIVE mg/dL NEGATIVE code = KETU) UA SPECIFIC GRAVITY (test 1.025 1.005-1.030 code = SGU) UA BLOOD DIPSTICK (test NEGATIVE NEGATIVE code = JAKUB) UA PH DIPSTICK (test code 5.5 5.0-9.0 = RACHEL) UA PROTEIN DIPSTICK (test NEGATIVE mg/dL NEGATIVE code = PROU) UA UROBILINOGEN DIPSTICK 0.2 mg/dL 0.2-1.0 (test code = URO) UA NITRITE DIPSTICK (test NEGATIVE NEGATIVE code = TROY) UA LEUKOCYTE ESTERASE NEGATIVE NEGATIVE DIPSTICK (test code = LEUU) UA WBC (test code = WBCU) NONE SEEN #WBC/HPF 0-2 UA RBC (test code = RBCU) 0-2 #RBC/HPF 0-2 UA BACTERIA (test code = NONE SEEN /HPF NONE-TRACE BACU) UA SQUAMOUS CELLS (test OCCASIONAL /LPF NONE-TRACE code = SQU) Indication for culture: RiskForSepsis-no oth srcUR HCG [id number] 23:10:00 Test Item Value Reference Range Interpretation Comments UR HCG QUAL (test code = HCGQLU) NEGATIVE NEGATIVE Indication for culture: RiskForSepsis-no oth srcUA RFLX MICR CULT IF [id number] 23:08:00 Test Item Value Reference Range Interpretation Comments UA COLOR (test code = COLU) YELLOW DISCRIPT YELLOW UA APPEARANCE (test code = CLEAR DISCRIPT CLEAR APPU) UA GLUCOSE DIPSTICK (test NEGATIVE mg/dL NEGATIVE code = DGLUU) UA BILIRUBIN DIPSTICK (test NEGATIVE NEGATIVE code = BILU) UA KETONE DIPSTICK (test code NEGATIVE mg/dL NEGATIVE = KETU) UA SPECIFIC GRAVITY (test 1.025 1.005-1.030 code = SGU) UA BLOOD DIPSTICK (test code NEGATIVE NEGATIVE = JAKUB) UA PH DIPSTICK (test code = 5.5 5.0-9.0 RACHEL) UA PROTEIN DIPSTICK (test NEGATIVE mg/dL NEGATIVE code = PROU) UA UROBILINOGEN DIPSTICK 0.2 mg/dL 0.2-1.0 (test code = URO) UA NITRITE DIPSTICK (test NEGATIVE NEGATIVE code = TROY) UA LEUKOCYTE ESTERASE NEGATIVE NEGATIVE DIPSTICK (test code = LEUU) UA WBC (test code = WBCU) #WBC/HPF 0-2 UA RBC (test code = RBCU) #RBC/HPF 0-2 UA BACTERIA (test code = /HPF NONE-TRACE BACU) UA SQUAMOUS CELLS (test code /LPF NONE-TRACE = SQU) Indication for culture: RiskForSepsis-no oth srcUR HCG [id number] 23:08:00 Test Item Value Reference Range Interpretation Comments UR HCG QUAL (test code = HCGQLU) NEGATIVE Indication for culture: RiskForSepsis-no oth srcCBC W/AUTO [id number] 23:04:00 Test Item Value Reference Range Interpretation Comments WHITE BLOOD CELL (test code = 10.2 x10 3/uL 4.8-10.8 N WBC) RED BLOOD CELL (test code = 4.47 x10 6/uL 4.20-5.40 N RBC) HEMOGLOBIN (test code = HGB) 14.0 g/dL 12.0-16.0 N HEMATOCRIT (test code = HCT) 42.0 % 37.0-47.0 N MEAN CELL VOLUME (test code = 94.0 fL 81.0-99.0 N MCV) MEAN CELL HGB (test code = MCH) 31.3 pg 27-31 H MEAN CELL HGB CONCENTRATION 33.3 G/DL 33-36.5 N (test code = MCHC) RED CELL DISTRIBUTION WIDTH 12.9 % 12.9-16.9 N (test code = RDW) PLATELET COUNT (test code = 328 x10 3/uL 150-440 N PLT) MEAN PLATELET VOLUME (test code 9.1 fL 8.9-12.4 N = MPV) NEUTROPHIL % (test code = NT%) 67.1 % 42.2-75.2 N LYMPHOCYTE % (test code = LY%) 24.3 % 20.5-51.1 N MONOCYTE % (test code = MO%) 6.4 % 1.7-9.3 N EOSINOPHIL % (test code = EO%) 1.2 % 0.0-7.0 N BASOPHIL % (test code = BA%) 0.7 % 0-2.5 N NEUTROPHIL # (test code = NT#) 6.87 x10 3/uL 1.80-7.70 N LYMPHOCYTE # (test code = LY#) 2.49 x10 3/uL 1.00-4.80 N MONOCYTE # (test code = MO#) 0.66 x10 3/uL 0.00-0.80 N EOSINOPHIL # (test code = EO#) 0.12 x10 3/uL 0.00-0.45 N BASOPHIL # (test code = BA#) 0.07 x10 3/uL 0.0-0.[address] ABDOMEN PELVIS W WO [id number] 06:21:55Impression: 1. No acute abnormalities evident. Specifically, no CT evidence of activegastrointestinal hemorrhage.2. Small volume of free pelvic fluid, likely physiologic. AFC: [id number] RL: 460 End of Report Ordering Physician: MILADYS MEDINA History: Gastrointestinal bleeding. Coffee-ground emesis. Melena. Technique: CT abdomen and pelvis without and with intravenous contrast.This examination was performed according to ALARA principles.Comparison: August 15, 2020. Findings: There is a small hiatal hernia. Debris is present within the gastric lumen.There is no gastric mural thickening. There is no evidence of bowelobstruction. Thereis no evidence of colitis or enteritis. No extravasatedintravascular contrast material is seen within stomach, small bowel, orcolonic lumen to suggest active gastrointestinal hemorrhage. The patientappears to be status post appendectomy. There is a small volume of freefluid within the pelvis. There isno free intraperitoneal air. The liver, gallbladder, spleen, pancreas, adrenal glands, and kidneys ar eunremarkable. The patient is status post hysterectomy. The urinary bladderis unremarkable in appearance. There is mild subsegmental atelectasiswithin the included lung bases. No acute bony abnormalities are evident. [facility], Radiant Results Inft User - 12/22/2020 1:23 AM CDTOrdering Physician: MILADYS MEDINAHistory: Gastrointestinal bleeding. Coffee-ground emesis. Melena.Technique: CT abdomen and pelvis without and with intravenous contrast.This examination was performed according to ALARA principles .Comparison: August 15, 2020.Findings: There is a small hiatal hernia. Debris is present within the gastric lumen.There is no gastric mural thickening. There is no evidence of bowelobstruction. Thereis no evidence of colitis or enteritis. No extravasatedintravascular contrast material is seen within stomach, small bowel, orcolonic lumen to suggest active gastrointestinal hemorrhage. The patientappears to be status post appendectomy. There is a small volume of freefluid within the pelvis. There isno free intraperitoneal air.The liver, gallbladder, spleen, pancreas, adrenal glands, and kidneys areunremarkable. The patient is status post hysterectomy. The urinary bladderis unremarkable in appearance. There is mild subsegmental atelectasiswithin the included lung bases. No acute bony abnormalities are evident.IMPRESSIONImpression: 1. No acute abnormalities evident. Specifically, no CT evidence of activegastrointestinal hemorrhage.2. Small volume of free pelvic fluid, likely physiologic.AFC: 9905 3RL: 460End of Report [facility]woodURINALYSIS2021-[facility]-18 04:41:44 Test Item Value Reference Range Interpretation Comments APPEARANCE (test code = Clear Clear 0055510733) COLOR (test code = Yellow Yellow 6080076984) PH (test code = 4.8-8.0 8674783205) SP GRAVITY (test code = 1.003-1.030 5948578777) GLU U QUAL (test code = Normal Normal 1793733149) BLOOD (test code = Negative Negative 8402581439) KETONES (test code = Negative Negative 8850298232) PROTEIN (test code = Negative Negative 2887-8) UROBILIN (test code = 2.0 mg/dL Normal A 1124854796) BILIRUBIN (test code = Negative Negative 4349548651) NITRITE (test code = Negative Negative 5232839012) LEUK PENNY (test code = Negative Negative 4955462563) RBC/HPF (test code = See_Comment H [Autom ated message] 2916506399) The system [employer] generated this result transmit uche reference range : 0 - 3 HPF. The refe rence range was not u sed to interpret th is result as normal/abnormal . WBC/HPF (test code = See_Comment [Autom ated message] 4062745076) The system [employer] generated this result transmit uche reference range : 0 - 5 HPF. The refe rence range was not u sed to interpret th is result as normal/abnormal . BACTERIA (test code = Few Negative A 9360076987) MUCOUS (test code = Slight Negative LPF A 7829769385) SQ EPITH (test code = HPF 8372603856) Lab Interpretation (test Abnormal code = 57699-0) [facility]. METABOLIC PANEL (60187)2020-12-22 04:41:14 Test Item Value Reference Range Interpretation Comments NA (test code = 140 mmol/L 135-145 5920193561) K (test code = 3.9 mmol/L 3.5-5.0 6699475030) CL (test code = 103 mmol/L 98-108 6720999903) CO2 TOTAL (test code = 26 mmol/L 23-31 2125017172) AGAP (test code = 2-16 8132710482) BUN (test code = 13 mg/dL 7-23 4630316591) GLUCOSE (test code = 104 mg/dL 70-110 1190400281) CREATININE (test code = 0.68 mg/dL 0.50-1.04 2439389109) TOTAL BILI (test code = 0.6 mg/dL 0.1-1.6 6241961563) CALCIUM (test code = 9.6 mg/dL 8.6-10.6 9962325792) T PROTEIN (test code = 8.0 g/dL 6.3-8.2 1873285395) ALBUMIN (test code = 4.9 g/dL 3.5-5.0 7488296015) ALK PHOS (test code = 83 U/L 34-122 6381394689) ALTv (test code = 16 U/L 5-35 1742-6) AST(SGOT) (test code = 44 U/L 13-40 H 4776355709) eGFR (test code = mL/min/1.73m2 3192484541) ANGI (test code = ANGI) Association of Glomerular Filtration Rate (GFR) and Staging of Kidney Disease* + --+ --+ ------+| GFR (mL/min/1.73 m2) ?| With Kidney Damage ?| ?Without Kidney Damage+ --------+ --------+ +| ?>90 ?| ?Stage one ?| ? Normal ?+ ---+ ---+ -------+| ?60-89 ?| ?Stage two ?| ? Decreased GFR ? + --+ --+ ------+| ?30-59 ?| ?Stage three ?| ? Stage three ? + --+ --+ ------+| ?15-29 ?| ?Stage four ? | ? Stage four ?+ ---+ ---+ -------+| ?<15 (or dialysis) ? ?| ?Stage five ? | ? Stage five ?+ ---+ ---+ -------+ *Each stage assumes the associated GFR level has been in effect for at least three months. ?Stages 1 to 5, with or without kidney disease, indicate chronic kidney disease. Notes: Determination of stages one and two (with eGFR >59mL/min/1.73 m2) requires estimation of kidney damage for at least three months as defined by structural or functional abnormalities of the kidney, manifested by either:Pathological abnormalities or Markers of kidney damage (including abnormalities in the composition of the blood or urine or abnormalities in imaging tests). Lab Interpretation Abnormal (test code = 24523-1) [facility] Test Item Value Reference Range Interpretation Comments LIPASE (test code = 3176138424) 119 U/L 0-220 Lab Interpretation (test code = Normal 77717-5) [facility] CenterPROT[facility] / [id number] 04:32:17 Test Item Value Reference Range Interpretation Comments PROTIME PATIENT (test See_Comment [Auto mated message] code = 5964-2) The system [employer] generated this result transmitted ref erence range: 12.0 - 1 4.7 Seconds. The re ference range was not u sed to interpret this result as normal/abnor mal. INR (test code = 6301-6) Nor mal INR <1.1; Warfarin Therap eutic range 2.0 to 3. 0 or 2.5 to 3.5, dep ending upon the indica tions. Lab Interpretation (test Normal code = 57567-4) [facility] WITH [id number] 04:23:34 Test Item Value Reference Range Interpretation Comments WBC (test code = See_Comment H [Automated 4290-2) message] The sy stem which generated this result transmitted reference range : 4.30 - 11.10 10*3/?L. The reference range was not used to interpret this result as normal/abnormal . RBC (test code = See_Comment [Automated 789-8) message] The sy stem which generated this result transmitted reference range : 3.93 - 5.25 10*6/?L. The reference range was not used to interpret this result as normal/abnormal . HGB (test code = 14.3 g/dL 11.6-15.0 718-7) HCT (test code = 41.9 % 35.7-45.2 4544-3) MCV (test code = 90.5 fL 80.6-95.5 787-2) MCH (test code = 30.9 pg 25.9-32.8 785-6) MCHC (test code = 34.1 g/dL 31.6-35.1 786-4) RDW-SD (test code = 40.8 fL 39.0-49.9 97393-5) RDW-CV (test code = 12.5 % 12.0-15.5 788-0) PLT (test code = See_Comment H [Automated 777-3) message] The sy stem which generated this result transmitted reference range : 166 - 358 10*3/ ?L. The reference r dagoberto was not used to interpret this result as normal/abnormal . MPV (test code = 9.1 fL 9.5-12.9 L 35449-3) NRBC/100 WBC (test See_Comment [Automat ed code = 4984642358) message] The system which generated this result transmitted reference range : 0.0 - 10.0 /100 WBCs. The refer ence range was not u sed to interpret th is result as normal/abnormal . NRBC x10^3 (test code <0.01 See_Comment [Auto mated = 8249879662) message] The s [employer] which generated this result transmitted reference range : 10*3/?L. The reference range was not used to interpret this result as normal/abnormal . GRAN MAT (NEUT) % 63.7 % (test code = 770-8) IMM GRAN % (test code 0.60 % = 8442254610) LYMPH % (test code = 27.9 % 736-9) MONO % (test code = 6.5 % 5905-5) EOS % (test code = 0.6 % 713-8) BASO % (test code = 0.7 % 706-2) GRAN MAT x10^3(ANC) 7.24 10*3/uL 1.88-7.09 H (test code = 5583741693) IMM GRAN x10^3 (test 0.07 10*3/uL 0.00-0.06 H code = 6265111921) LYMPH x10^3 (test code 3.18 10*3/uL 1.32-3.29 = 731-0) MONO x10^3 (test code 0.74 10*3/uL 0.33-0.92 = 742-7) EOS x10^3 (test code = 0.07 10*3/uL 0.03-0.39 711-2) BASO x10^3 (test code 0.08 10*3/uL 0.01-0.07 H = 704-7) Lab Interpretation Abnormal (test code = 90986-4) [facility] [id number] 12:44:00 Test Item Value Reference Range Interpretation Comments SURGICAL SPECIMENS (test code = SURG) RUN DATE: 08/27/20 [facility] - LAB PAGE 1 RUN TIME: 1244 Specimen Inquiry RUN USER: INTERFACE PATIENT: ROSITA JEAN BAPTISTE LOC: ImeldaWilliam POD B U #: [id number] AGE/SX: 30/F ROOM: [facility] RE08/23/20REG DR: Olegario Srivastava MD : 92 BED: 1 DIS: 08/25/20 STATUS: DIS Keira TLOC: SPEC #: [id number] RECD: 08/23/20 STATUS: MIKI MAI #: [id number] LAURYN: 08/23/20 [facility] DR: Olegario Srivastava MD ENTERED: 08/23/20 SP TYPE: SURG OTHR DR: Self Referred Jose Luis Ly MDORDERED: PATHGM4, PATH SPEC, H E STAIN HISTOLOGY: TISSUE ID BLK PCS VIKA LEV / PROCEDURE DISPOSITION ____ ___ ___ ___ ___ ANTRUM BIOPSY A 1 3 TISSUES: A. ANTRUM BIOPSY - Gastric Antrum Bx CLINICAL HISTORY Hematemesis FINAL DIAGNOSIS STOMACH, ANTRUM, BIOPSY: -ANTRAL MUCOSA WITH FEATURES SUGGESTIVE OF MILD REACTIVE/CHEMICAL GASTROPATHY -NEGATIVE FOR INTESTINAL METAPLASIA -NO HELICOBACTER PYLORI BY IMMUNOHISTOCHEMICAL STUDY 71193, 94037 GROSS DESCRIPTION Received in formalin labeled with the patient's name and "gastric antrum" are three tissue fragments of 0.1 to 0.2 cm, submitted in one cassette. CM/ta. Signed SIGNATURE ON FILE Wayne Andrews 08/27/20 1244 END OF REPORT UA RFLX MICR CULT IF [id number] 13:25:00 Test Item Value Reference Range Interpretation Comments UA COLOR (test code = YELLOW DISCRIPT YELLOW COLU) UA APPEARANCE (test code CLEAR DISCRIPT CLEAR = APPU) UA GLUCOSE DIPSTICK NEGATIVE mg/dL NEGATIVE (test code = DGLUU) UA BILIRUBIN DIPSTICK NEGATIVE NEGATIVE (test code = BILU) UA KETONE DIPSTICK (test NEGATIVE mg/dL NEGATIVE code = KETU) UA SPECIFIC GRAVITY 1.020 1.005-1.030 (test code = SGU) UA BLOOD DIPSTICK (test NEGATIVE NEGATIVE code = JAKUB) UA PH DIPSTICK (test 6.0 5.0-9.0 code = RACHEL) UA PROTEIN DIPSTICK NEGATIVE mg/dL NEGATIVE (test code = PROU) UA UROBILINOGEN DIPSTICK 0.2 mg/dL 0.2-1.0 (test code = URO) UA NITRITE DIPSTICK NEGATIVE NEGATIVE (test code = TROY) UA LEUKOCYTE ESTERASE NEGATIVE NEGATIVE DIPSTICK (test code = LEUU) UA WBC (test code = Test not performed 0-2 WBCU) #WBC/HPF UA RBC (test code = Test not performed 0-2 RBCU) #RBC/HPF UA BACTERIA (test code = Test not performed NONE-TRACE BACU) /HPF UA SQUAMOUS CELLS (test Test not performed NONE-TRACE code = SQU) /LPF Indication for culture: Suprapubic PainSpecimen Description: CLEAN CATCHUA RFLX MICR CULT IF [id number] 13:24:00 Test Item Value Reference Range Interpretation Comments UA COLOR (test code = COLU) YELLOW DISCRIPT YELLOW UA APPEARANCE (test code = CLEAR DISCRIPT CLEAR APPU) UA GLUCOSE DIPSTICK (test NEGATIVE mg/dL NEGATIVE code = DGLUU) UA BILIRUBIN DIPSTICK (test NEGATIVE NEGATIVE code = BILU) UA KETONE DIPSTICK (test code NEGATIVE mg/dL NEGATIVE = KETU) UA SPECIFIC GRAVITY (test 1.020 1.005-1.030 code = SGU) UA BLOOD DIPSTICK (test code NEGATIVE NEGATIVE = JAKUB) UA PH DIPSTICK (test code = 6.0 5.0-9.0 RACHEL) UA PROTEIN DIPSTICK (test NEGATIVE mg/dL NEGATIVE code = PROU) UA UROBILINOGEN DIPSTICK 0.2 mg/dL 0.2-1.0 (test code = URO) UA NITRITE DIPSTICK (test NEGATIVE NEGATIVE code = TROY) UA LEUKOCYTE ESTERASE NEGATIVE NEGATIVE DIPSTICK (test code = LEUU) UA WBC (test code = WBCU) #WBC/HPF 0-2 UA RBC (test code = RBCU) #RBC/HPF 0-2 UA BACTERIA (test code = /HPF NONE-TRACE BACU) UA SQUAMOUS CELLS (test code /LPF NONE-TRACE = SQU) Indication for culture: Suprapubic PainSpecimen Description: CLEAN CATCH BASIC METABOLIC [id number] 09:57:00 Test Item Value Reference Range Interpretation Comments SODIUM (test code 136 MMOL/L 136-143 N = NA) POTASSIUM (test 4.5 MMOL/L 3.5-5.1 N code = K) CHLORIDE (test 101 MMOL/L 98-107 N code = CL) CARBON DIOXIDE 27 mmol/L 24-31 N (test code = CO2) GLUCOSE (test code 89 mg/dL 70-104 N = GLU) BLOOD UREA 4.1 MG/DL 7.0-21.0 L NITROGEN (test code = BUN) GLOMERULAR >=60 max >60 The estimated FILTRATION RATE estimate glomerular (test code = GFR) filtration rate is computed usingpatient ra ce, age (>18), sex, and serum creatinin e. If anyof the neede d data elements a re missing the Laboratory sayra ot compute an estimation of t he glomerular filtration rate . CREATININE (test 0.7 mg/dL 0.8-1.5 L code = CREAT) CALCIUM (test code 9.6 mg/dL 8.8-10.2 N = CA) CBC W/AUTO [id number] 06:53:00 Test Item Value Reference Range Interpretation Comments WHITE BLOOD CELL (test code = 7.0 x10 3/uL 4.8-10.8 N WBC) RED BLOOD CELL (test code = 4.30 x10 6/uL 4.20-5.40 N RBC) HEMOGLOBIN (test code = HGB) 13.2 g/dL 14.5-20 L HEMATOCRIT (test code = HCT) 40.0 % 37.0-47.0 N MEAN CELL VOLUME (test code = 93.0 fL 81.0-99.0 N MCV) MEAN CELL HGB (test code = MCH) 30.7 pg 27-31 N MEAN CELL HGB CONCENTRATION 33.0 G/DL 33-36.5 N (test code = MCHC) RED CELL DISTRIBUTION WIDTH 12.9 % 12.9-16.9 N (test code = RDW) PLATELET COUNT (test code = 359 x10 3/uL 150-440 N PLT) MEAN PLATELET VOLUME (test code 9.4 fL 8.9-12.4 N = MPV) NEUTROPHIL % (test code = NT%) 42.8 % 42.2-75.2 N LYMPHOCYTE % (test code = LY%) 47.4 % 20.5-51.1 N MONOCYTE % (test code = MO%) 6.8 % 1.7-9.3 N EOSINOPHIL % (test code = EO%) 1.7 % 0.0-7.0 N BASOPHIL % (test code = BA%) 1.0 % 0-2.5 N NEUTROPHIL # (test code = NT#) 3.00 x10 3/uL 1.80-7.70 N LYMPHOCYTE # (test code = LY#) 3.32 x10 3/uL 1.00-4.80 N MONOCYTE # (test code = MO#) 0.48 x10 3/uL 0.00-0.80 N EOSINOPHIL # (test code = EO#) 0.12 x10 3/uL 0.00-0.45 N BASOPHIL # (test code = BA#) 0.07 x10 3/uL 0.0-0.20 N Novel Coronavirus 2018 [id number] 06:10:00 Test Item Value Reference Range Interpretation Comments Novel Coronavirus Not Detected Not Detected Testing wa s performed 2019 Inhouse (test using the Aptima code = COVNONPUI) SARS-CoV-2 assay.This nucleic acid amplification t est was developed and itsperformance characteristics determined by [facility]. Nucleic acid amplification t ests include PCRand TMA. This test has not be en FDA cleared or appr belle.This test has been a uthorized by FDA under an Emergency UseAuthorizatio n (EUA). This test is on ly authorized fort he duration of aaron e the declaration amanda t circumstancesex ist justifying the authorization o f the emergency use o fin vitro diagnostic test s for detection of SA RS-CoV-2 virusand/or melody gnosis of COVID-19 infect ion under (b)(1 ) of the Act, 21 U.S.C. 360bbb-3(b) (1) , unless theauthorizatio n is terminated or r evoked sooner.When melody gnostic testing is nega tive, the possibility of afalse negative result should be considered i n the contextof a pat ient's recent exposure s and the presence ofclin ical signs and sympt oms consistent with COVID-19. Anind ividual without symptom s of COVID-19 and wh o is notshedding NOAH S-CoV-2 virus would exp ect to have a negative (not detected) resul t in this assay.Performed At: [facility] [address] [id number] alessandra Wei MD Ph:[phone] BASIC METABOLIC [id number] 04:20:00 Test Item Value Reference Range Interpretation Comments SODIUM (test code 137 MMOL/L 136-143 N = NA) POTASSIUM (test 3.8 MMOL/L 3.5-5.1 N code = K) CHLORIDE (test 106 MMOL/L 98-107 N code = CL) CARBON DIOXIDE 23 mmol/L 24-31 L (test code = CO2) GLUCOSE (test code 94 mg/dL 70-104 N = GLU) BLOOD UREA 6.3 MG/DL 7.0-21.0 L NITROGEN (test code = BUN) GLOMERULAR >=60 max >60 The estimated FILTRATION RATE estimate glomerular (test code = GFR) filtration rate is computed usingpatient ra ce, age (>18), sex, and serum creatinin e. If anyof the neede d data elements a re missing the Laboratory sayra ot compute an estimation of t he glomerular filtration rate . CREATININE (test 0.8 mg/dL 0.8-1.5 N code = CREAT) CALCIUM (test code 9.1 mg/dL 8.8-10.2 N = CA) [id number] 04:20:00 Test Item Value Reference Range Interpretation Comments MAGNESIUM (test code = MAG) 1.9 mg/dL 1.4-2.6 N CBC W/AUTO [id number] 04:09:00 Test Item Value Reference Range Interpretation Comments WHITE BLOOD CELL (test code = 7.3 x10 3/uL 4.8-10.8 N WBC) RED BLOOD CELL (test code = 3.67 x10 6/uL 4.20-5.40 L RBC) HEMOGLOBIN (test code = HGB) 11.1 g/dL 14.5-20 L HEMATOCRIT (test code = HCT) 33.5 % 37.0-47.0 L MEAN CELL VOLUME (test code = 91.3 fL 81.0-99.0 N MCV) MEAN CELL HGB (test code = MCH) 30.2 pg 27-31 N MEAN CELL HGB CONCENTRATION 33.1 G/DL 33-36.5 N (test code = MCHC) RED CELL DISTRIBUTION WIDTH 13.0 % 12.9-16.9 N (test code = RDW) PLATELET COUNT (test code = 322 x10 3/uL 150-440 N PLT) MEAN PLATELET VOLUME (test code 9.1 fL 8.9-12.4 N = MPV) NEUTROPHIL % (test code = NT%) 50.1 % 42.2-75.2 N LYMPHOCYTE % (test code = LY%) 40.5 % 20.5-51.1 N MONOCYTE % (test code = MO%) 7.3 % 1.7-9.3 N EOSINOPHIL % (test code = EO%) 1.1 % 0.0-7.0 N BASOPHIL % (test code = BA%) 0.7 % 0-2.5 N NEUTROPHIL # (test code = NT#) 3.67 x10 3/uL 1.80-7.70 N LYMPHOCYTE # (test code = LY#) 2.96 x10 3/uL 1.00-4.80 N MONOCYTE # (test code = MO#) 0.53 x10 3/uL 0.00-0.80 N EOSINOPHIL # (test code = EO#) 0.08 x10 3/uL 0.00-0.45 N BASOPHIL # (test code = BA#) 0.05 x10 3/uL 0.0-0.20 N - CT ABD PELVIS [id number] 15:59:[facility] 1990 Sex: FPatient Name: ROSITA JEAN BAPTISTE Unit No: [id number] EXAMS: CPT CODE: [id number] CT ABD PELVIS W/CONT 54133 Examination: Abdomen and pelvic CT with contrast Location code: S17 Comparison: None Technique: Axial postcontrast contiguous images were obtained through the abdomen and pelvis followed by coronal and sagittal reformations. All CT scans are performed using radiation dose reduction technique. Technical factors are evaluated and adjusted to insure appropriate moderation of exposure. Automated dose management technology is applied to adjust the radiation dose to minimize exposure while achieving a diagnostic quality image. Discussion: Clinical history is remarkable for hypogastric pain, vomiting, unexplained bleeding. The lung bases are clear. The heart is normal in size. Within the abdomen and pelvis, small hiatal hernia is noted. Liver, gallbladder, spleen, pancreas, and adrenal glands appear normal. Kidneys demonstrate uniform contrast-enhancement. Stomach is unremarkable. Caliber of the bowel is within normal limits. Appendix is absent. Bladder is grossly normal. Uterus is notvisualized. There are scattered follicles within the left ovary, certainly benign. Right ovary is not visualized. There are no lytic or blastic lesions present within the osseous structures. Impression: 1. No acute abdominopelvic abnormality. 2. Small hiatal hernia. 3. Scattered left ovarian follicles, certainly benign. at 1559 Reported and signed by: AKIKO COOPER M.D. CC: Olegario Srivastava MD Technologist: CLAUDIA Em(R)(CT) CTDI: 25.40 DLP: 1299 Trscr Dt/Tm: 08/23/2020 (1559) by:[email or web address] Printed Date/Time: 08/23/2020 (1132) Name: ROSITA JEAN BAPTISTE [facility] Phys: Olegario Perrin MD [address] : 1990 Age: 30 Sex: [place] [address] Loc: P.ERMS 4 Exam Date: 08/23/2020 Status: ADM IN PH: FAX: PAGE 1 Signed ReportCoronavirus 2019 nCoV Bedside 2020-08-23 12:44:00 Test Item Value Reference Range Interpretation Comments Coronavirus 2019 Negative Negative Negative re sults should be nCoV Bedside (test treated a s presumptive code = and, ifinconsis tent with [id number]) clinical signs and symptoms or nec essaryfor patient managem ent, should be tested with differentauthor ized or cleared molecul ar tests. Negative result s donot preclude SARS-C OV-2 infection and s hould not be used asthe s ole basis for patient man agement decisions. Negativeresults should be considered in t he context of the patient' srecent exposures, hist ory, presence of cli nical signs andsymptoms con sistent with COVID-19. BASIC METABOLIC [id number] 11:24:00 Test Item Value Reference Range Interpretation Comments SODIUM (test code 138 MMOL/L 136-143 N = NA) POTASSIUM (test 3.9 MMOL/L 3.5-5.1 N code = K) CHLORIDE (test 102 MMOL/L 98-107 N code = CL) CARBON DIOXIDE 27 mmol/L 24-31 N (test code = CO2) GLUCOSE (test code 126 mg/dL 70-104 H = GLU) BLOOD UREA 12.5 MG/DL 7.0-21.0 N NITROGEN (test code = BUN) GLOMERULAR >=60 max >60 The estimated FILTRATION RATE estimate glomerular (test code = GFR) filtration rate is computed usingpatient ra ce, age (>18), sex, and serum creatinin e. If anyof the neede d data elements a re missing the Laboratory sayra ot compute an estimation of t he glomerular filtration rate . CREATININE (test 0.8 mg/dL 0.8-1.5 N code = CREAT) CALCIUM (test code 9.3 mg/dL 8.8-10.2 N = CA) LIVER FUNCTION [id number] 11:24:00 Test Item Value Reference Range Interpretation Comments TOTAL PROTEIN (test code = PROT) 7.6 g/dL 6.3-8.3 N ALBUMIN (test code = ALB) 4.5 G/DL 3.5-5.0 N BILIRUBIN TOTAL (test code = BILT) 0.5 mg/dL 0.2-1.0 N BILIRUBIN DIRECT (test code = <0.2 mg/dL 0.0-0.2 N BILD) SGOT/AST (test code = AST) 22 IU/L 10-34 N SGPT/ALT (test code = ALT) 17 U/L 10-36 N ALKALINE PHOSPHATASE (test code = 77 U/L 32-104 N ALKP) [id number] 11:24:00 Test Item Value Reference Range Interpretation Comments LIPASE (test code = LIP) 18 U/L 0-190 N PROTHROMBIN [id number] 10:21:00 Test Item Value Reference Range Interpretation Comments PROTHROMBIN TIME 12.1 SECONDS 10.3-12.9 N PATIENT (test code = PTP) INTERNATIONAL 1.07 INR UNIT 0.9-1.11 N The INR is us eful only NORMAL RATIO (test for monit oring code = INR) anticoagulant therapy.It may be unreliable in t he initial phase o f antigoagulation and in unstable patien ts. Indication for Anticoagulation Recommend ed INR 1. Prevention o f venous thomboembolism 2.0-3.0in high -risk patients; treat ment of venousthrombosi s and pulmonary embol ism aftera course o f heparin; preven tion of systemicembolis m in a variety of cond itions, including atria l fibrillation an d prothetic tissu e heart valves, 2. Pros thetic mechanical hear t valves; 2.5-3.5recurren t systemic emboli sm. CBC W/AUTO [id number] 10:15:00 Test Item Value Reference Range Interpretation Comments WHITE BLOOD CELL (test code = 6.6 x10 3/uL 4.8-10.8 N WBC) RED BLOOD CELL (test code = 4.01 x10 6/uL 4.20-5.40 L RBC) HEMOGLOBIN (test code = HGB) 12.3 g/dL 14.5-20 L HEMATOCRIT (test code = HCT) 36.1 % 37.0-47.0 L MEAN CELL VOLUME (test code = 90.0 fL 81.0-99.0 N MCV) MEAN CELL HGB (test code = MCH) 30.7 pg 27-31 N MEAN CELL HGB CONCENTRATION 34.1 G/DL 33-36.5 N (test code = MCHC) RED CELL DISTRIBUTION WIDTH 12.9 % 12.9-16.9 N (test code = RDW) PLATELET COUNT (test code = 350 x10 3/uL 150-440 N PLT) MEAN PLATELET VOLUME (test code 8.9 fL 8.9-12.4 N = MPV) NEUTROPHIL % (test code = NT%) 52.3 % 42.2-75.2 N LYMPHOCYTE % (test code = LY%) 36.3 % 20.5-51.1 N MONOCYTE % (test code = MO%) 8.4 % 1.7-9.3 N EOSINOPHIL % (test code = EO%) 1.8 % 0.0-7.0 N BASOPHIL % (test code = BA%) 0.9 % 0-2.5 N NEUTROPHIL # (test code = NT#) 3.46 x10 3/uL 1.80-7.70 N LYMPHOCYTE # (test code = LY#) 2.41 x10 3/uL 1.00-4.80 N MONOCYTE # (test code = MO#) 0.56 x10 3/uL 0.00-0.80 N EOSINOPHIL # (test code = EO#) 0.12 x10 3/uL 0.00-0.45 N BASOPHIL # (test code = BA#) 0.06 x10 3/uL 0.0-0.20 N [id number] 13:24:00 Test Item Value Reference Range Interpretation Comments AMYLASE (test code = RUFUS) 36 units/L 30-110 N LAB FAX OKVPUT=[id number] METABOLIC [id number] 07:32:00 Test Item Value Reference Range Interpretation Comments SODIUM (test code = NA) 139 mEq/L 135-145 N POTASSIUM (test code = K) 4.1 mEq/L 3.5-5.0 N CHLORIDE (test code = CL) 101 mEq/L 100-115 N CARBON DIOXIDE (test code = CO2) 29 mEq/L 22-31 N ANION GAP (test code = GAP) 13.00 10-20 N GLUCOSE (test code = GLU) 101 mg/dL 65-110 N BLOOD UREA NITROGEN (test code = 3 mg/dL 7-18 L BUN) GLOMERULAR FILTRATION RATE (test 85 ml/min >60 N code = GFR) CREATININE (test code = CREAT) 0.8 mg/dL 0.5-1.0 N TOTAL PROTEIN (test code = PROT) 7.4 gm/dL 6.3-8.2 N ALBUMIN (test code = ALB) 4.1 gm/dL 3.4-4.8 N CALCIUM (test code = CA) 8.9 mg/dL 8.4-10.2 N BILIRUBIN TOTAL (test code = BILT) 0.4 mg/dL 0.2-1.0 N SGOT/AST (test code = AST) 16 units/L 15-37 N SGPT/ALT (test code = ALT) 21 units/L 12-78 N ALKALINE PHOSPHATASE TOTAL (test 88 units/L 46-116 N code = ALKP) [id number] 07:32:00 Test Item Value Reference Range Interpretation Comments LIPASE (test code = LIP) 69 units/L 73-393 L COMPREHENSIVE METABOLIC [id number] 02:36:00 Test Item Value Reference Range Interpretation Comments SODIUM (test code = NA) 139 mEq/L 135-145 N POTASSIUM (test code = K) 4.1 mEq/L 3.5-5.0 N CHLORIDE (test code = CL) 101 mEq/L 100-115 N CARBON DIOXIDE (test code = CO2) 29 mEq/L 22-31 N ANION GAP (test code = GAP) 13.00 10-20 N GLUCOSE (test code = GLU) 101 mg/dL 65-110 N BLOOD UREA NITROGEN (test code = 3 mg/dL 7-18 L BUN) GLOMERULAR FILTRATION RATE (test 85 ml/min >60 N code = GFR) CREATININE (test code = CREAT) 0.8 mg/dL 0.5-1.0 N TOTAL PROTEIN (test code = PROT) 7.4 gm/dL 6.3-8.2 N ALBUMIN (test code = ALB) 4.1 gm/dL 3.4-4.8 N CALCIUM (test code = CA) 8.9 mg/dL 8.4-10.2 N BILIRUBIN TOTAL (test code = BILT) 0.4 mg/dL 0.2-1.0 N SGOT/AST (test code = AST) 16 units/L 15-37 N SGPT/ALT (test code = ALT) 21 units/L 12-78 N ALKALINE PHOSPHATASE TOTAL (test 88 units/L 46-116 N code = ALKP) CBC W/AUTO [id number] 02:09:00 Test Item Value Reference Range Interpretation Comments WHITE BLOOD CELL (test code = WBC) 7.7 K/mm3 6.6-12.1 N RED BLOOD CELL (test code = RBC) 4.09 M/mm3 3.45-5.01 N HEMOGLOBIN (test code = HGB) 12.3 g/dL 10.7-13.9 N HEMATOCRIT (test code = HCT) 38.8 % 32.1-42.1 N MEAN CELL VOLUME (test code = MCV) 95 fL 84.1-94.8 H MEAN CELL HGB (test code = MCH) 30.1 pg 27-35 N MEAN CELL HGB CONCETRATION (test 31.7 gm/dL 32.2-34.1 L code = MCHC) RED CELL DISTRIBUTION WIDTH (test 12.9 % 12.4-16.5 N code = RDW) PLATELET COUNT (test code = PLT) 311 K/mm3 133-385 N MEAN PLATELET VOLUME (test code = 9.1 fl 9.1-12.7 N MPV) NEUTROPHIL % (test code = NT%) 60.0 % 56.5-79.4 N LYMPHOCYTE % (test code = LY%) 29.5 % 14.3-34.3 N MONOCYTE % (test code = MO%) 9.1 % 5.1-10.4 N EOSINOPHIL % (test code = EO%) 1.0 % 0.1-3.0 N BASOPHIL % (test code = BA%) 0.3 % 0.1-1.0 N NEUTROPHIL # (test code = NT#) 4.6 K/mm3 LYMPHOCYTE # (test code = LY#) 2.3 K/mm3 MONOCYTE # (test code = MO#) 0.7 K/mm3 EOSINOPHIL # (test code = EO#) 0.08 K/mm3 BASOPHIL # (test code = BA#) 0.0 K/mm3 RBC MORPHOLOGY REQUIRED (test code NORMAL NORMAL = RBCM) PLATELET MORPHOLOGY REQUIRED (test NORMAL NORMAL code = PLTMR) - US ABDOMEN [id number] 00:24:[address] : 1990 Sex: F Patient Name: ROSITA JEAN BAPTISTE Unit No: [id number] EXAMS: CPT CODE: [id number] US ABDOMEN COMPLETE 48351 STUDY: - US ABDOMEN COMPLETE 08/16/2020 8:29 PM Ordering Physician: MD Randa Patient Name: ROSITA JEAN BAPTISTE MR: [id number] : 1990; Age: 30 years y/o Female Clinical Indication: Generalized abdominal pain. History of multiple pelvic surgeries. Status post appendectomy. Possible history of endometriosis per patient. Comparison: None TECHNIQUE: Grayscale and limited color sonographic evaluation of the abdomen was performed with standard technique. FINDINGS: Limited examination secondary to patient discomfort. LIVER: The hepatic size, shape, and echotexture are normal. No focal hepatic lesion is appreciated. Antegrade main portal vein. GALLBLADDER: Question mild dependent gallbladder sludge without cholelithiasis, wall thickening, or pericholecystic inflammation. BILE DUCTS: No evidence of intrahepatic or extrahepatic biliary ductal dilatation. The visualized common bile duct measures 3 mm at maximum. Portions of the distal common bile duct are never well-visualized. PANCREAS: Nonvisualized secondary to artifact produced by body habitus and/overlying bowel gas. KIDNEY: The bilateral renal size, shape, and echotexture are normal without nephrolithiasis, hydronephrosis, or focal lesion.Right kidney: 11.4 x 3.7 x 4.9 cm. Left kidney: 11.1 x 5.3 x 4.1 cm. SPLEEN: Normal size, shape, and echotexture without enlargement or discrete lesion. Spleen size: cm at maximum. AORTA AND INFERIOR VENA CAVA: The visualized portions are normal.. ASCITES: [facility] NAME: MARKELROSITA Radiology Department PHYS: Kaylah Knapp MD [address] : 1990 AGE: 30 SEX: F [place], [place] [address] LOC: Jeremías.2660 A PHONE #: [phone] EXAM DATE: 08/16/2020 STATUS: ADM IN FAX #: [phone] RAD NO: Page 1 Signed Report (CONTINUED) Patient Name: ROSITA JEAN BAPTISTE Unit No: [id number] EXAMS: CPT CODE: [id number] US ABDOMEN COMPLETE 53846 <Continued> No significant fluid accumulation. IMPRESSION: Limited examination secondary to patient discomfort. Question mild dependent gallbladder sludge without cholelithiasis, inflammation, or biliary ductal dilatation. Nonvisualized pancreas. SL: TPAINTER-H at 0024 Reported and signed by: Deondre Bueno MD CC: Zulay Brooke MD; Kaylah Coelho MD Technologist: Pippa Figueroa RDMS, RVT Probe: Trnscrbd D/ (0024) [email or web address] Orig Print D/T: S: 08/17/2020 (0027) [facility] NAME: ROSITA JEAN BAPTISTE Radiology Department PHYS: Kaylah Knapp MD [address] : 1990 AGE: 30 SEX: F [place], [place] [address] LOC: F.2660 A PHONE #: [phone] EXAM DATE: 08/16/2020 STATUS: ADM IN FAX #: [phone] RAD NO: Page 2 Signed Report Patient Name: ROSITA JEAN BAPTISTE Unit No: [id number] EXAMS: CPT CODE: [id number] US ABDOMEN COMPLETE 53597 <Continued> [facility] NAME: AILEEN JEAN BAPTISTESEY Radiology Department PHYS: Kaylah Knapp MD [address] : 1990 AGE: 30 SEX: F [place], [place] [address] LOC: F.2660 A PHONE #: [phone] EXAM DATE: 08/16/2020 STATUS: ADM IN FAX #: [phone] RAD NO: Page 3 Signed Report- XR ABDOMEN 1 V 2020-08-16 21:41:00 [facility] : 1990 Sex: F Patient Name: ROSITA JEAN BAPTISTE Unit No: [id number] EXAMS: CPT CODE: [id number] XR ABDOMEN 1 V 40571 Portable AP abdomen, 2 radiographs. INDICATION: Abdominal pain with vomiting. Dizziness. FINDINGS: No prior for comparison. Visualized portions of lung bases are clear. The bowel gas pattern is nonspecific and nonobstructive with mild stool burden in the ascending colon. No radiopaque nephrolithiasis identified. No acute bony finding. IMPRESSION: No acute abdominal finding. SL: SG-H at 2140 Reported and signed by: Rubin Hairston MD CC: Zulay Brooke MD; Kaylah Coelho MD Technologist: RT Jermain Trnscrbd D/ (2140) [email or web address] Orig Print D/T: S: 08/16/2020 (2143) [facility] NAME: MARKELRSOITA Radiology Department PHYS: Kaylah Knapp MD [address] : 1990 AGE: 30 SEX: F [place], [place] [address] LOC: Jeremías.2660 A PHONE #: [phone] EXAM DATE: 08/16/2020 STATUS: ADM IN FAX #: [phone] RAD NO: Page 1 Signed Report- US TRANSVAGINAL [id number] 18:34:00[facility] : 1990 Sex: F Patient Name: ROSITA JEAN BAPTISTE Unit No: [id number] EXAMS: CPT CODE: [id number] US TRANSVAGINAL W/PELVIS 59720 PROCEDURE: PELVIC ULTRASOUND INDICATION: Pelvic pain. Vomiting. Abdominal pain. Dizziness. Vaginal bleeding. COMPARISON: 01/25/2019 pelvic ultrasound TRANSABDOMINAL SCAN: Neither the uterus nor either ovary is visualized. No adnexal masses visualized. The bladder is partially filled with fluid. TRANSVAGINAL SCAN: Transvaginal exam was performed for better visualization of the pelvic structures. Neither the uterus nor either ovary is visualized. Small volume free pelvic fluid is identified. IMPRESSION: 1. Abnormal small volume free pelvicfluid. 2. Nonvisualization of the uterus and ovaries. SL: SG-H at 1834 Reported and signed by: Rubin Hairston MD CC: Leonardo Rader MD Technologist: Codie Sierra RDMS, RVT Probe: [id number] Trnscrbd D/ (1833) [email or web address] Orig Print D/T: S: 08/15/2020 (1836) [facility] NAME: ROSITA JEAN BAPTISTE Radiology Department PHYS: Leonardo Bryan [address] : 1990 AGE: 30 SEX: F [place] LOC: ChaniERS PHONE #: [phone] EXAM DATE: 08/15/2020 STATUS: REG ER FAX #: [phone] RAD NO: Page 1 Signed Report Patient Name: ROSITA JEAN BAPTISTE Unit No: [id number] EXAMS: CPT CODE: [id number] US TRANSVAGINAL W/PELVIS 80068 <Continued> [facility] NAME: ROSITA JEAN BAPTISTE Radiology Department PHYS: Leonardo Bryan [address] : 1990 AGE: 30 SEX: F [place] [address] LOC: ChaniERS PHONE #: [phone] EXAM DATE: 08/15/2020 STATUS: REG ER FAX #: [phone] RAD NO: Page 2 Signed Report- US PELVIS [id number] 18:34:[address] : 1990 Sex: F Patient Name: ROSITA JEAN BAPTISTE Unit No: [id number] EXAMS: CPT CODE: [id number] PELVIS COMPLETE [id number] PROCEDURE: PELVIC ULTRASOUND INDICATION: Pelvic pain. Vomiting. Abdominal pain. Dizziness. Vaginal bleeding. COMPARISON: 01/25/2019 pelvic ultrasound TRANSABDOMINAL SCAN: Neither the uterus nor either ovary is visualized. No adnexal masses visualized. The bladder is partially filled with fluid. TRANSVAGINAL SCAN: Transvaginal exam was performed for better visualization of the pelvic structures. Neither the uterus nor either ovary is visualized. Small volume free pelvic fluid is identified. IMPRESSION: 1. Abnormal small volume free pelvicfluid. 2. Nonvisualization of the uterus and ovaries. SL: SG-H at 1834 Reported and signed by: Rubin Hairston MD CC: Andressa Razo MD; Leonardo Rader MD Technologist: Codie Sierra RDMS, RVT Probe: Trnscrbd D/ (1833) [id number] Orig Print D/T: S: 08/15/2020 (1836) [facility] NAME: ROSITA JEAN BAPTISTE Radiology Department PHYS: Andressa Lucas MD [address] : 1990 AGE: 30 SEX: Evelia [id number] LOC: [facility] PHONE #: [phone] EXAM DATE: 08/15/2020 STATUS: REG ER FAX #: [phone] RAD NO: Page 1 Signed Report Patient Name: ROSITA JEAN BAPTISTE Unit No: [id number] EXAMS: CPT CODE: [id number] US PELVIS COMPLETE 02319 <Continued> [facility] NAME: ROSITA JEAN BAPTISTE Radiology Department PHYS: Andressa Lucas MD [address] [place] : 1990 AGE: 30 SEX: F [place], [place] [address] LOC: [facility] PHONE #: [phone] EXAM DATE: 08/15/2020 STATUS: REG ER FAX #: [phone] RAD NO: Page 2 Signed ReportUA RFLX MICR CULT IF [id number] 17:10:00 Test Item Value Reference Range Interpretation Comments UA COLOR (test code = COLU) YELLOW YELLOW UA APPEARANCE (test code = CLEAR CLEAR APPU) UA GLUCOSE DIPSTICK (test code NEGATIVE NEG = DGLUU) UA BILIRUBIN DIPSTICK (test NEGATIVE NEG code = BILU) UA KETONE DIPSTICK (test code NEGATIVE NEG = KETU) UA SPECIFIC GRAVITY (test code >1.035 1.001-1.035 H = SGU) UA BLOOD DIPSTICK (test code = 2+ NEG A JAKUB) UA PH DIPSTICK (test code = 5.0 5-9 RACHEL) UA PROTEIN DIPSTICK (test code NEGATIVE NEG = PROU) UA UROBILINIOGEN DIPSTICK NEGATIVE mg/dL NEG (test code = URO) UA NITRITE DIPSTICK (test code NEG NEG = TROY) UA LEUKOCYTE ESTERASE DIPSTICK NEG NEG (test code = LEUU) UA WBC (test code = WBCU) 0-2 #/hpf NONE SEEN UA RBC (test code = RBCU) 0-2 #/hpf NONE SEEN UA EPITHELIAL CELLS (test code RARE #/HPF RARE-FEW = EPIU) UA MUCUS (test code = MUCU) RARE NONE SEEN Indication for culture: Suprapubic PainSpecimen Description: CLEAN CATCHHCG [id number] 16:18:00 Test Item Value Reference Range Interpretation Comments HCG SERUM (test <1 INTERPRETATI ON:VALUES BETWEEN code = HCG) 15-20 milliInte rnational units/mL NEED T O BERETESTED WITHIN 48 HOURS . All units for these ranges ar e in milliInternatio nalunits/mL0-1 WK AFTER CONCEP TION 0-50 1-2 W KS AFTER CONCEPTION 40-3002-3 WKS A FTER CONCEPTION 100-1 ,0003-4 WKS AFTER CONCEPTIO N 500-6,0001-2 MO NTHS AFTER CONCEPTION 5,000-200,0002- 3 MONTHS AFTER CONCEPTION 10,000-100,0002 ND TRIMESTER 3,000-50,0003RD TRIMESTER 1 ,000-50,000 SPECIMENS WITH AN HCG LEVEL FROM 0-6 milliInternatio nalunits/mL SHOULD BE CONSI DERED NEGATIVE CHEMISTRY 7 [id number] 16:06:00 Test Item Value Reference Range Interpretation Comments SODIUM (test code = NA) 138 mEq/L 135-145 N POTASSIUM (test code = K) 3.7 mEq/L 3.5-5.0 N CHLORIDE (test code = CL) 104 mEq/L 100-115 N CARBON DIOXIDE (test code = CO2) 27 mEq/L 22-31 N ANION GAP (test code = GAP) 10.50 10-20 N GLUCOSE (test code = GLU) 106 mg/dL 65-110 N BLOOD UREA NITROGEN (test code = 10 mg/dL 7-18 N BUN) GLOMERULAR FILTRATION RATE (test 66 ml/min >60 N code = GFR) CREATININE (test code = CREAT) 1.0 mg/dL 0.5-1.0 N CALCIUM (test code = CA) 8.9 mg/dL 8.4-10.2 N CBC W/AUTO [id number] 15:46:00 Test Item Value Reference Range Interpretation Comments WHITE BLOOD CELL (test code = WBC) 9.0 K/mm3 6.6-12.1 N RED BLOOD CELL (test code = RBC) 4.09 M/mm3 3.45-5.01 N HEMOGLOBIN (test code = HGB) 12.4 g/dL 10.7-13.9 N HEMATOCRIT (test code = HCT) 38.9 % 32.1-42.1 N MEAN CELL VOLUME (test code = MCV) 95 fL 84.1-94.8 H MEAN CELL HGB (test code = MCH) 30.3 pg 27-35 N MEAN CELL HGB CONCETRATION (test 31.9 gm/dL 32.2-34.1 L code = MCHC) RED CELL DISTRIBUTION WIDTH (test 13.0 % 12.4-16.5 N code = RDW) PLATELET COUNT (test code = PLT) 327 K/mm3 133-385 N MEAN PLATELET VOLUME (test code = 9.2 fl 9.1-12.7 N MPV) NEUTROPHIL % (test code = NT%) 65.7 % 56.5-79.4 N LYMPHOCYTE % (test code = LY%) 24.1 % 14.3-34.3 N MONOCYTE % (test code = MO%) 8.3 % 5.1-10.4 N EOSINOPHIL % (test code = EO%) 1.0 % 0.1-3.0 N BASOPHIL % (test code = BA%) 0.6 % 0.1-1.0 N NEUTROPHIL # (test code = NT#) 5.9 K/mm3 LYMPHOCYTE # (test code = LY#) 2.2 K/mm3 MONOCYTE # (test code = MO#) 0.7 K/mm3 EOSINOPHIL # (test code = EO#) 0.09 K/mm3 BASOPHIL # (test code = BA#) 0.1 K/mm3 RBC MORPHOLOGY REQUIRED (test code NORMAL NORMAL = RBCM) PLATELET MORPHOLOGY REQUIRED (test NORMAL NORMAL code = PLTMR) [id number] 10:36:00 Test Item Value Reference Range Interpretation Comments APTT Patient (test See_Comment [Automat ed code = 3173-2) message] The system which generated this result transmitted reference range : 23 - 38 Seconds . The reference range was not used to interpr et this result as normal/abnormal . ANGI (test code = ANGI) The [facility] patient population mean normal value for aPTT is 30 seconds. Lab Interpretation Normal (test code = 42451-6) [facility] ([facility] / [id number] 10:34:00 Test Item Value Reference Range Interpretation Comments PROTIME PATIENT (test See_Comment [Auto mated message] code = 5964-2) The system wh ich generated this result transmitted ref erence range: 12.0 - 1 4.7 Seconds. The re ference range was not u sed to interpret this result as normal/abnor mal. INR (test code = 6301-6) Nor mal INR <1.1; Warfarin Therap eutic range 2.0 to 3. 0 or 2.5 to 3.5, dep ending upon the indica tions. Lab Interpretation (test Normal code = 77750-6) [facility] NOW RAPID TESTING)2020-08-15 10:33:00 Test Item Value Reference Range Interpretation Comments SARS-CoV-2 Rapid ID NOW Not Detected Not Detected (test code = 38216-1) ANGI (test code = ANGI) ID NOW COVID-19 Assay is an isothermal nucleic acid amplification test intended for the qualitative detection of nucleic acid from SARS-CoV-2 viral RNA in nasopharyngeal ([employer]VERT[employer]ASING [employer]ENT) specimens. It is used under Emergency Use Authorization (EUA) by FDA. The limit of detection (LOD) of the assay is 125 Genome Equivalents/mL. A positive result is indicative of the presence of SARS-CoV-2 RNA. ?Clinical correlation with patient history and other diagnostic information is necessary to determine patient infection status. A negative (Not Detected) result does not preclude SARS-CoV-2 infection. In patients with clinical symptoms and other tests that are consistent with SARS-CoV-2 infection, negative results should be treated as presumptive negative and a new specimen should be tested with alternative PCR molecular test. Invalid: Please collect a new specimen for repeat patient testing if clinically indicated. Lab Interpretation Normal (test code = 26006-3) [facility] Center[facility]inalysis2020-12-10 10:27:00 Test Item Value Reference Range Interpretation Comments APPEARANCE (test code = Clear Clear 0000751073) COLOR (test code = Yellow Yellow 1736850222) PH (test code = 4.8-8.0 7200057076) SP GRAVITY (test code = >=1.030 1.003-1.030 9169528266) GLU U QUAL (test code = Negative Negative 6740206624) BLOOD (test code = Trace Negative A 3539021002) KETONES (test code = Negative Negative 3078511013) PROTEIN (test code = Trace Negative A 2887-8) UROBILIN (test code = 0.2 mg/dL See_Comment [Auto mated message] 2469644090) The system [employer] generated this result transmit uche reference range : 0-1.0 mg/dL. Th e reference range was not used to interpret this result as normal/abnormal . BILIRUBIN (test code = Small Negative A 9495830827) NITRITE (test code = Negative Negative 5196626712) LEUK PENNY (test code = Negative Negative 4347956242) RBC/HPF (test code = See_Comment H [Autom ated message] 8060442093) The system [employer] generated this result transmit uche reference range : 0 - 3 HPF. The refe rence range was not u sed to interpret th is result as normal/abnormal . WBC/HPF (test code = See_Comment [Autom ated message] 0150344565) The system [employer] generated this result transmit uche reference range : 0 - 5 HPF. The refe rence range was not u sed to interpret th is result as normal/abnormal . BACTERIA (test code = Many Negative A 2451062356) MUCOUS (test code = Marked Negative LPF A 7726010656) SQ EPITH (test code = HPF 2087887849) WBC CAST (test code = See_Comment [Auto mated message] 2540332092) The system [employer] generated this result transmit uche reference range : <=1 LPF. The refere nce range was not u sed to interpret th is result as normal/abnormal . Ictotest (test code = Negative 1826662996) GRAN CASTS (test code = See_Comment H [Au tomated message] 0918811036) The system [employer] generated this result transmit uche reference range : <=1 LPF. The refere nce range was not u sed to interpret th is result as normal/abnormal . Lab Interpretation (test Abnormal code = 47756-9) [facility] Metabolic Panel (NA, K, CL, CO2, GLUCOSE, BUN, CREATININE, CA)2020-08-15 10:15:00 Test Item Value Reference Range Interpretation Comments NA (test code = 137 mmol/L 135-145 0888376429) K (test code = 4.2 mmol/L 3.5-5 5887178711) CL (test code = 101 mmol/L 98-108 2058604052) CO2 TOTAL (test code = 25 mmol/L 23-31 4371654295) AGAP (test code = 2-16 5287338297) BUN (test code = 12 mg/dL 7-23 3167930734) GLUCOSE (test code = 100 mg/dL 70-110 6467580956) CREATININE (test code 0.74 mg/dL 0.5-1.04 = 3880339905) CALCIUM (test code = 9.6 mg/dL 8.6-10.6 8583760478) eGFR Calculation mL/min/1.73m2 (Non-) (test code = 6581523968) eGFR Calculation mL/min/1.73m2 () (test code = 6481158759) ANGI (test code = ANGI) Association of Glomerular Filtration Rate (GFR) and Staging of Kidney Disease* + -+ + ---+| GFR (mL/min/1.73 m2) ?| With Kidney Damage ?| ?Without Kidney Damage+ -------+ ------+ ---------+| ?>90 ?| ?Stage one ?| ? Normal ?+ --+ -+ ----+| ?60-89 ?| ?Stage two ?| ? Decreased GFR ? + -+ + ---+| ?30-59 ?| ?Stage three ?| ? Stage three ? + -+ + ---+| ?15-29 ?| ?Stage four ? | ? Stage four ?+ --+ -+ ----+| ?<15 (or dialysis) ? ?| ?Stage five ? | ? Stage five ?+ --+ -+ ----+ *Each stage assumes the associated GFR level has been in effect for at least three months. ?Stages 1 to 5, with or without kidney disease, indicate chronic kidney disease. Notes: Determination of stages one and two (with eGFR >59mL/min/1.73 m2) requires estimation of kidney damage for at least three months as defined by structural or functional abnormalities of the kidney, manifested by either:Pathological abnormalities or Markers of kidney damage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 generated this result transmitted reference range : 0.0 - 10.0 /100 WBCs. The refer ence range was not u sed to interpret th is result as normal/abnormal . NRBC x10^3 (test code <0.01 See_Comment [Auto mated = 8656924921) message] The s ystem which generated this result transmitted reference range : 10*3/?L. The reference range was not used to interpret this result as normal/abnormal . GRAN MAT (NEUT) % 72.6 % (test code = 770-8) IMM GRAN % (test code 0.50 % = 1868930689) LYMPH % (test code = 20.2 % 736-9) MONO % (test code = 6.3 % 5905-5) EOS % (test code = 0.1 % 713-8) BASO % (test code = 0.3 % 706-2) GRAN MAT x10^3(ANC) 8.28 10*3/uL 1.88-7.09 H (test code = 7136317167) IMM GRAN x10^3 (test 0.06 10*3/uL 0-0.06 code = 8878548882) LYMPH x10^3 (test code 2.30 10*3/uL 1.32-3.29 = 731-0) MONO x10^3 (test code 0.72 10*3/uL 0.33-0.92 = 742-7) EOS x10^3 (test code = <0.03 0.03-0.39 L 711-2) BASO x10^3 (test code 0.03 10*3/uL 0.01-0.07 = 704-7) Lab Interpretation Abnormal (test code = 71794-7) [facility][QL] CBC (INCLUDES DIFF/PLT)2020-02-16 15:21:00 Test Item Value Reference Range Interpretation Comments WHITE BLOOD CELL COUNT 7.0 {Thousand/u} 3.8-10.8 N (test code = WHITE BLOOD CELL COUNT) RED BLOOD CELL COUNT (test 4.61 {Million/uL} 3.80-5.10 N code = RED BLOOD CELL COUNT) HEMOGLOBIN; Normal (test 13.8 g/dl 11.7-15.5 N code = 50491-6) HEMATOCRIT; Normal (test 41.0 % 35.0-45.0 N code = 4544-3) MCV; Normal (test code = 88.9 fL 80.0-100.0 N 787-2) MCHC; Normal (test code = 33.7 g/dl 32.0-36.0 N 00003-8) RDW; Normal (test code = 12.2 % 11.0-15.0 N 788-0) PLATELET COUNT; Normal 373 {Thousand/u} 140-400 N (test code = 777-3) MPV; Normal (test code = 9.6 fL 7.5-12.5 N 11749-2) ABSOLUTE NEUTROPHILS (test 4333 {cells/uL} 0713-4974 N code = ABSOLUTE NEUTROPHILS) ABSOLUTE LYMPHOCYTES (test 3 {cells/uL} 850-3900 N code = ABSOLUTE LYMPHOCYTES) ABSOLUTE MONOCYTES (test 490 {cells/uL} 200-950 N code = ABSOLUTE MONOCYTES) ABSOLUTE EOSINOPHILS (test 91 {cells/uL} 15-500 N code = ABSOLUTE EOSINOPHILS) ABSOLUTE BASOPHILS (test 63 {cells/uL} 0-200 N code = ABSOLUTE BASOPHILS) NEUTROPHILS (test code = 61.9 % N NEUTROPHILS) LYMPHOCYTES (test code = 28.9 % N LYMPHOCYTES) MONOCYTES; Normal (test 7.0 % N code = 02001-8) EOSINOPHILS; Normal (test 1.3 % N code = 88487-9) BASOPHILS; Normal (test 0.9 % N code = 71596-7) [facility][O] Urine Test (in office)2020-02-14 09:35:00 Test Item Value Reference Range Interpretation Comments Test, Urine; Normal (test negative N code = 2106-3) [facility][QL] CBC (INCLUDES DIFF/PLT)2020-02-14 00:00:00 Test Item Value Reference Range Interpretation Comments WHITE BLOOD CELL 6.6 3.8-10.8 N COUNT (test code = {Thousand/u} WHITE BLOOD CELL COUNT) RED BLOOD CELL COUNT 4.30 3.80-5.10 N (test code = RED {Million/uL} BLOOD CELL COUNT) HEMOGLOBIN; Normal 12.7 g/dl 11.7-15.5 N (test code = 81008-6) HEMATOCRIT; Normal 39.4 % 35.0-45.0 N (test code = 4544-3) MCV; Normal (test 91.6 fL 80.0-100.0 N code = 787-2) MCHC; Normal (test 32.2 g/dl 32.0-36.0 N code = 43441-8) RDW; Normal (test 12.4 % 11.0-15.0 N code = 788-0) PLATELET COUNT; 334 140-400 N Normal (test code = {Thousand/u} 777-3) MPV; Normal (test 9.5 fL 7.5-12.5 N code = 52392-8) ABSOLUTE NEUTROPHILS 3485 3122-6532 N (test code = {cells/uL} ABSOLUTE NEUTROPHILS) ABSOLUTE LYMPHOCYTES 2501 850-3900 N (test code = {cells/uL} ABSOLUTE LYMPHOCYTES) ABSOLUTE MONOCYTES 521 {cells/uL} 200-950 N (test code = ABSOLUTE MONOCYTES) ABSOLUTE EOSINOPHILS 40 {cells/uL} 15-500 N (test code = ABSOLUTE EOSINOPHILS) ABSOLUTE BASOPHILS 53 {cells/uL} 0-200 N (test code = ABSOLUTE BASOPHILS) NEUTROPHILS (test 52.8 % N code = NEUTROPHILS) LYMPHOCYTES (test 37.9 % N code = LYMPHOCYTES) MONOCYTES; Normal 7.9 % N (test code = 89551-9) EOSINOPHILS; Normal 0.6 % N (test code = 95966-4) BASOPHILS; Normal 0.8 % N SPECIMEN R ECEIVED (test code = DATE AND TIME: 58151-6) [id number] [facility][QL] [id number] 00:00:00 Test Item Value Reference Range Interpretation Comments AMYLASE (test code = 27 u/l 21-101 N SPECIME N RECEIVED DATE AND AMYLASE) TIME: [facility][QL] [id number] 00:00:00 Test Item Value Reference Range Interpretation Comments LIPASE (test code = 18 u/l 7-60 N SPECIMEN RECEIVED DATE AND LIPASE) TIME: [facility]. [facility] - Affirm VPIII (BV Panel)2020-02-14 00:00:00 Test Item Value Reference Range Interpretation Comments Case (test code = Click ImageLink button N Case) for report. [facility][O] Urine Test (in office)2020-01-31 00:00:00 Test Item Value Reference Range Interpretation Comments Test, Urine; Normal (test neg N code = 2106-3) [facility][QL] CBC (INCLUDES DIFF/PLT)2020-01-31 00:00:00 Test Item Value Reference Range Interpretation Comments WHITE BLOOD CELL 8.3 3.8-10.8 N COUNT (test code = {Thousand/u} WHITE BLOOD CELL COUNT) RED BLOOD CELL COUNT 4.61 3.80-5.10 N (test code = RED {Million/uL} BLOOD CELL COUNT) HEMOGLOBIN; Normal 14.0 g/dl 11.7-15.5 N (test code = 10803-4) HEMATOCRIT; Normal 41.8 % 35.0-45.0 N (test code = 4544-3) MCV; Normal (test 90.7 fL 80.0-100.0 N code = 787-2) MCHC; Normal (test 33.5 g/dl 32.0-36.0 N code = 85962-3) RDW; Normal (test 12.2 % 11.0-15.0 N code = 788-0) PLATELET COUNT; 393 140-400 N Normal (test code = {Thousand/u} 777-3) MPV; Normal (test 9.8 fL 7.5-12.5 N code = 79885-7) ABSOLUTE NEUTROPHILS 4739 6551-8111 N (test code = {cells/uL} ABSOLUTE NEUTROPHILS) ABSOLUTE LYMPHOCYTES 2731 850-3900 N (test code = {cells/uL} ABSOLUTE LYMPHOCYTES) ABSOLUTE MONOCYTES 672 {cells/uL} 200-950 N (test code = ABSOLUTE MONOCYTES) ABSOLUTE EOSINOPHILS 100 {cells/uL} 15-500 N (test code = ABSOLUTE EOSINOPHILS) ABSOLUTE BASOPHILS 58 {cells/uL} 0-200 N (test code = ABSOLUTE BASOPHILS) NEUTROPHILS (test 57.1 % N code = NEUTROPHILS) LYMPHOCYTES (test 32.9 % N code = LYMPHOCYTES) MONOCYTES; Normal 8.1 % N (test code = 77893-6) EOSINOPHILS; Normal 1.2 % N (test code = 31568-4) BASOPHILS; Normal 0.7 % N SPECIMEN R ECEIVED (test code = DATE AND TIME: 11668-9) [id number] [facility]. [facility] - Affirm VPIII (BV Panel)2020-01-31 00:00:00 Test Item Value Reference Range Interpretation Comments Case (test code = Click ImageLink button N Case) for report. [facility] NECK SOFT [id number] 06:05:05Lingual tonsillar hypertrophy. No acute intraparenchymal process. RL: 6200 ICAL HISTORY:sore throat COMPARISON:None TECHNIQUE:2 views of the soft tissues of the neck performed. FINDINGS:No parapharyngeal or prevertebral soft tissue swel ling. ?No airwaycompromise. There are no appreciable compressions or subluxations. ?Noappreciable fracture lines. There is some lingual tonsillar hypertrophy. [facility], Radiant Results Inft User - 10/12/2019 12:06 AM CSTCLINICAL HISTORY:sore throat COMPARISON:NoneTECHNIQUE:2 views of the soft tissues of the neck performed.FINDINGS:No parapharyngeal or prevertebral soft tissue swelling. No airwaycompromise. There are no appreciable compressions or subluxations. Noappreciable fracture lines. There is some lingual tonsillar hypertrophy.IMPRESSIONLingual tonsillar hypertrophy.No acute intraparenchymal process.RL: 6200 [facility] - INFLUENZA A & B DIRECT [id number] 04:46:00 Test Item Value Reference Range Interpretation Comments Influenza A (test code = 41237-3) Negative Negative Influenza B (test code = 20270-6) Negative Negative Lab Interpretation (test code = Normal 93485-1) [facility] Center[facility] FOR GROUP [id number] 04:35:00 Test Item Value Reference Range Interpretation Comments Streptococcus pyogenes (group A) Negative Negative antigen (test code = 24658-8) Lab Interpretation (test code = Normal 14604-9) [facility] with Pelvis Transvaginal [id number] 2019-07-12 14:57:00PROCEDURE INFORMATION:Exam: US Pelvis Complete, Transabdominal and US Pelvis, TransvaginalExam date and time: 07/12/2019 3:11 PMClinical history: 29 years old, female; Pelvic and perineal pain; Additiona linfo: Pelvic pain/pelvic pain and vaginal bleeding for 9 months.TECHNIQUE:Imaging protocol: Real-time transabdominal and transvaginal pelvic ultrasound(complete) with image documentation. Transvaginalimaging was used for betterevaluation of the endometrium and adnexa.COMPARISON:No relevant prior studies available.FINDINGS:Uterus/cervix: Uterus measures 6.8 x 4.4 x 3 cm. No uterine mass. Endometrialstripe measures 5 mm in thickness.Right adnexa: Right ovary measures 3.1 x 2.9 x 1.8 cm with multipleperipherally oriented follicles.Left adnexa: Left ovary measures 3 x 2.1 x 1.6 cm with multiple periph erallyoriented follicles.Free fluid: None.IMPRESSION:Unremarkable pelvic ultrasound.Gigi Noel MD On 07/13/2019 14:15:41; [id number]--Mpbx by: Gigi Noel MDDictated Date/time: 07/13/19 14:15Electronically Signed by: Gigi Noel MD 07/13/1914:15FINAL REPORTUnSevier [facility]] CBC (INCLUDES DIFF/PLT)2019-06-28 17:22:01 Test Item Value Reference Range Interpretation Comments WBC (test code = 6690-2) 7.3 {K/CMM} 3.7-10.4 RBC (test code = 789-8) 4.46 {M/CMM} 4.20-5.40 Hgb (test code = 718-7) 13.9 g/dl 12.0-16.0 Hct (test code = 23422-7) 40.2 % 36.0-48.0 MCV (test code = 787-2) 90.1 fL 80.0-98.0 MCH; Above High Threshold (test 31.2 pg 27.0-31.0 code = 785-6) MCHC (test code = 786-4) 34.6 g/dl 32.0-36.0 RDW (test code = 788-0) 12.9 % 11.5-14.5 Platelet (test code = 08184-0) 381 {K/CMM} 133-450 Mean Platelet Volume (test code 7.6 fL 7.4-10.4 = 05104-4) [facility][H] [id number] 17:20:01 Test Item Value Reference Range Interpretation Comments ORGANISM (test code = Enterococcus 699-9) Species Ampicillin (test code - S = Ampicillin) Levofloxacin (test - S code = Levofloxacin) Nitrofurantoin (test - S code = Nitrofurantoin) Tetracycline (test - S code = Tetracycline) Vancomycin (test code SEE NOTES S S= Natividad ceptible, = Vancomycin) R= Resistant, I= Intermediate, N/A= Not Applicable [facility]] URINALYSIS, [id number] 17:18:01 Test Item Value Reference Range Interpretation Comments UA Color (test code = 5778-6) Yellow Yellow UA Turbidity; Abnormal (test code Slight Clear A = 63391-6) UA Spec Grav (test code = 5810-7) 1.020 <=1.030 UA pH (test code = 5803-2) 5.0 5.0-8.0 UA Protein (test code = 79670-9) Negative Negative UA Glucose (test code = 48692-3) Negative Negative UA Ketones (test code = 07198-2) Negative Negative UA Bili (test code = 5770-3) Negative Negative UA Blood; Abnormal (test code = Small Negative A 5794-3) UROBILINOGEN (test code = 47918-8) <1.0 0.1-1.0 UA Nitrite (test code = 5802-4) Negative Negative UA Leuk Est (test code = 5799-2) Negative Negative UA RBC; Above High Threshold (test 4 {/HPF} 0-2 code = 94391-8) UA WBC (test code = 58712-1) 3 {/HPF} 0-5 UA Bacteria (test code = 46774-7) Occasional None Seen UA Mucus; Abnormal (test code = Moderate None Seen A 8247-9) UA Sq Epi; Abnormal (test code = Moderate Few A 90182-4) [facility][H] PT/PTT Mixing Study [id number] 17:18:01 Test Item Value Reference Range Interpretation Comments TT Baseline (test 15.4 {sec} 15.0-21.1 code = 3243-3) PT Baseline (test 13.3 {sec} 12.0-14.7 FACTOR DEF ICIENCIES may code = 5902-2) be congenital or acquired. Acqu ired deficiencies ma ybe seen with gut steril ization or long-termant ibiotic use. Suggest appropriate fac tor assays, wherecl inically indicated.CIRCU LATING INHIBITORS may be associated with either bleedingor thro mbotic tendencies. Ce rtain circulating inh ibitors maybe transient (drug-related o r seocndary to autoimmune/infl ammatory conditions). Cobb ggest further studies as clinically alicia cated. PT 1:1 Immediate See Note TEST NOT IN DICATED, PT (test code = AND PTT ARE NOR MAL. 5959-2) PTT Baseline (test 33.8 {sec} 22.9-35.8 FACTOR DE FICIENCIES may code = 81495-6) be congenita l or acquired. Acqu ired deficiencies ma ybe seen with gut steril ization or long-termant ibiotic use. Suggest appropriate fac tor assays, wherecl inically indicated.CIRCU LATING INHIBITORS may be associated with either bleedingor thro mbotic tendencies. Ce rtain circulating inh ibitors maybe transient (drug-related o r seocndary to autoimmune/infl ammatory conditions). Cobb ggest further studies as clinically alicia cated. [facility]] TSH, 3RD GENERATION W/REFLEX TO FT4 2019-06-28 17:18:01 Test Item Value Reference Range Interpretation Comments TSH (test code = 67489-7) 2.340 {uIU/ml} 0.360-3.740 [facility]] HEMOGLOBIN [id number] 17:18:01 Test Item Value Reference Range Interpretation Comments Hemoglobin A1c (test code = 4548-4) 5.3 % <=5.6 [facility] PhysiciansPOCT [id number] 16:04:00 Test Item Value Reference Range Interpretation Comments POCT PREG (test code = 1605) Negative On board controls acceptable with C Yes Line (test code = 3574) POCT PREG LOT # (test code = 3575) POCT PREG TEST DATE (test code = 3576) [facility] ABD PELVIS [id number] 23:16:00 Name: ROSITA JEAN [facility] : 1990 Age/S: 28 / F [address] [place] [address] Unit #: [id number] Loc: Donn [id number] Phys: Cheyenne Pearson MD Acct: [id number] Dis Date: Status: REG ER PHONE #: [phone] Exam Date: 02/28/20192234 FAX #: [phone] Reason: abd pain post dx lap EXAMS: CPTCODE: [id number] CT ABD PELVIS W/CONT 72026 PROCEDURE: CT abdomen and pelvis with contrast dated 02/28/2019 INDICATION: Generalized abdominal pain status post exploratory laparoscopy. COMPARISON: CT abdomen dated 03/28/2014. TECHNIQUE: A CT of the abdomen pelvis was performed using helical images from the thoracic outlet through the pubic symphysis with subsequent sagittal and coronal reconstruction. IV CONTRAST: 100 cc of Isovue-300 GI CONTRAST: 500 mL of dilute Omnipaque 240solution. CT imaging performed at this location utilizes radiation dose optimization techniques which include one or more of the followin) Automated exposure control; 2) Adjustment of mA and/or kV; 3) Use of iterative reconstructive technique. CT radiation dose DLP(mGy-cm): 628. FINDINGS: SOLID ORGANS: No acute CT abnormalities of the liver, spleen, pancreas, adrenal glands or kidneys are detected. There is no CT evidence of acute renal collecting system obstruction or calcified renal collecting system stone. BILIARY: The gallbladder is normally distended. No significant biliary ductal d ilatation is identified. BOWEL: No CT abnormalities of the stomach or duodenum are identified. No small bowel dilatation is present to suggest obstruction. The patient appears to be status post appendectomy. There is no evidence of diverticular disease or inflammatory colonic wall thickening. Note is made of herniation and a portion of the right rectal wall through a defect in the pelvic floor musculature. (Series 2, images 103 through 106; series 601 images 56 through 63) PERITONEUM: Free intraperitoneal air is identified and is presumably postoperative given the patient's recent surgical history. Free intraperitoneal fluid is identified adjacent to the spleen, along the left paracolic gutter and in the pelvic cul-de-sac. RETROPERITONEUM: The abdominal aorta is normal in caliber. There is no evidence of retroperitoneal mass or adenopathy. PAGE 1 Signed Report (CONTINUED) Name: ROSITA JEAN [facility] : 1990 Age/S: 28 / F [address] [place] [address] Unit #: [id number] Loc: [place] [address] Phys: Cheyenne Pearson MD Acct: [id number] Dis Date: Status: REG ER PHONE #: [phone] Exam Date: 02/28/2019 2235 FAX #: [phone] Reason: abd pain post dx lap EXAMS: CPT CODE: [id number] CT ABD PELVIS W/CONT 79778 <Continued> PELVIS: No gross abnormalities of the ovaries or adnexa are noted. The bladder has an unremarkable appearance. The presence of a gas bubble in the bladder lumen is presumably related to recent instrumentation. LOWER CHEST: The lung bases appear clear of acute disease. A small hiatal hernia is noted in the lower mediastinum. ADDITIONAL FINDINGS: Postoperative gas is identified in the anterior abdominal wall. No postoperative abdominal wall fluid collections IMPRESSION: 1. No acute CT abnormalities of the abdomen or pelvis are detected. The finding of free intraperitoneal air is presumably postoperative given the patient's recent surgical history. 2. Herniation of a portion of the right lateral rectal wall through a defect in the pelvic floor musculature, compatible with posterior perineal hernia. S L: 131 at 2316 Reported and signed by: Domingo Castro M.D. CC: Cheyenne Pearson MD; Akiko Awad MD Technologist:RT Karlee(R) CTDI: DLP: Trnscb Date/Time: 02/28/2019 (2411) [email or web address] Orig Print D/T: S: 02/28/2019 (4638) PAGE 2 Signed ReportCOMPREHENSIVE METABOLIC [id number] 22:37:00 Test Item Value Reference Range Interpretation Comments SODIUM (test code = NA) 141 mEq/L 134-147 N POTASSIUM (test code = 4.2 mEq/L 3.4-5.0 N K) CHLORIDE (test code = 111 mEq/L 100-108 H CL) CARBON DIOXIDE (test 21 mEq/L 21-33 N code = CO2) ANION GAP (test code = 13 0-20 N GAP) GLUCOSE (test code = 97 mg/dL 70-110 N GLU) BLOOD UREA NITROGEN 5 mg/dL 7-18 L (test code = BUN) GLOMERULAR FILTRATION 75.7 110-120 L Units of measure = RATE (test code = GFR) ml/mi n/1.73 m2 CREATININE (test code = 0.9 mg/dL 0.6-1.3 N CREAT) TOTAL PROTEIN (test 8.8 g/dL 6.4-8.2 H code = PROT) ALBUMIN (test code = 4.70 g/dL 3.4-5.0 N ALB) CALCIUM (test code = 9.1 mg/dL 8.0-10.5 N CA) BILIRUBIN TOTAL (test 0.40 mg/dL 0.0-1.0 N code = BILT) SGOT/AST (test code = 21 IUnit/L 15-37 N AST) SGPT/ALT (test code = 27 IUnit/L 15-65 N ALT) ALKALINE PHOSPHATASE 69 IUnit/L 20-125 N TOTAL (test code = ALKP) [id number] 22:37:00 Test Item Value Reference Range Interpretation Comments LIPASE (test code = LIP) 111 IUnit/L 73-393 N HCG SERUM [id number] 22:37:00 Test Item Value Reference Range Interpretation Comments HCG SERUM QUAL (test code = SERUM NEGATIVE NEGATIVE HCGQL) COMPREHENSIVE METABOLIC [id number] 22:28:00 Test Item Value Reference Range Interpretation Comments SODIUM (test code = NA) 141 mEq/L 134-147 N POTASSIUM (test code = 4.2 mEq/L 3.4-5.0 N K) CHLORIDE (test code = 111 mEq/L 100-108 H CL) CARBON DIOXIDE (test 21 mEq/L 21-33 N code = CO2) ANION GAP (test code = 13 0-20 N GAP) GLUCOSE (test code = 97 mg/dL 70-110 N GLU) BLOOD UREA NITROGEN 5 mg/dL 7-18 L (test code = BUN) GLOMERULAR FILTRATION 75.7 110-120 L Units of measure = RATE (test code = GFR) ml/mi n/1.73 m2 CREATININE (test code = 0.9 mg/dL 0.6-1.3 N CREAT) TOTAL PROTEIN (test 8.8 g/dL 6.4-8.2 H code = PROT) ALBUMIN (test code = 4.70 g/dL 3.4-5.0 N ALB) CALCIUM (test code = 9.1 mg/dL 8.0-10.5 N CA) BILIRUBIN TOTAL (test 0.40 mg/dL 0.0-1.0 N code = BILT) SGOT/AST (test code = IUnit/L 15-37 AST) SGPT/ALT (test code = 27 IUnit/L 15-65 N ALT) ALKALINE PHOSPHATASE 69 IUnit/L 20-125 N TOTAL (test code = ALKP) [id number] 22:28:00 Test Item Value Reference Range Interpretation Comments LIPASE (test code = LIP) 111 IUnit/L 73-393 N HCG SERUM [id number] 22:28:00 Test Item Value Reference Range Interpretation Comments HCG SERUM QUAL (test code = SERUM NEGATIVE NEGATIVE HCGQL) COMPREHENSIVE METABOLIC [id number] 22:04:00 Test Item Value Reference Range Interpretation Comments SODIUM (test code = NA) mEq/L 134-147 POTASSIUM (test code = K) mEq/L 3.4-5.0 CHLORIDE (test code = CL) mEq/L 100-108 CARBON DIOXIDE (test code = CO2) mEq/L 21-33 ANION GAP (test code = GAP) 0-20 GLUCOSE (test code = GLU) mg/dL 70-110 BLOOD UREA NITROGEN (test code = mg/dL 7-18 BUN) GLOMERULAR FILTRATION RATE (test 110-120 code = GFR) CREATININE (test code = CREAT) mg/dL 0.6-1.3 TOTAL PROTEIN (test code = PROT) g/dL 6.4-8.2 ALBUMIN (test code = ALB) g/dL 3.4-5.0 CALCIUM (test code = CA) mg/dL 8.0-10.5 BILIRUBIN TOTAL (test code = BILT) mg/dL 0.0-1.0 SGOT/AST (test code = AST) IUnit/L 15-37 SGPT/ALT (test code = ALT) IUnit/L 15-65 ALKALINE PHOSPHATASE TOTAL (test IUnit/L 20-125 code = ALKP) [id number] 22:04:00 Test Item Value Reference Range Interpretation Comments LIPASE (test code = LIP) IUnit/L 73-393 HCG SERUM [id number] 22:04:00 Test Item Value Reference Range Interpretation Comments HCG SERUM QUAL (test code = SERUM NEGATIVE NEGATIVE HCGQL) URINALYSIS [id number] 21:58:00 Test Item Value Reference Range Interpretation Comments UA COLOR (test code = COLU) STRAW YEL/STRAW UA APPEARANCE (test code = APPU) CLEAR CLEAR UA GLUCOSE DIPSTICK (test code = NEGATIVE NEGATIVE DGLUU) UA BILIRUBIN DIPSTICK (test code NEGATIVE NEGATIVE = BILU) UA KETONE DIPSTICK (test code = NEGATIVE NEGATIVE KETU) UA SPECIFIC GRAVITY (test code = 1.002 1.005-1.030 L SGU) UA BLOOD DIPSTICK (test code = 2+ NEGATIVE A JAKUB) UA PH DIPSTICK (test code = RACHEL) 6.0 5.0-7.0 N UA PROTEIN DIPSTICK (test code = NEGATIVE NEGATIVE PROU) UA UROBILINIOGEN DIPSTICK (test 0.2 mg/dL 0.2-1.0 code = URO) UA NITRITE DIPSTICK (test code = NEGATIVE NEGATIVE TROY) UA LEUKOCYTE ESTERASE DIPSTICK 1+ NEGATIVE A (test code = LEUU) UA WBC (test code = WBCU) 0-3 WBC/HPF 0-3 UA RBC (test code = RBCU) 4-10 RBC/HPF 0-3 UA BACTERIA (test code = BACU) TRACE /HPF NONE SEEN UA SQUAMOUS CELLS (test code = 0-5 /HPF NONE SEEN SQU) COMMENTS: Clean CatchCBC W/AUTO [id number] 21:54:00 Test Item Value Reference Range Interpretation Comments WHITE BLOOD CELL (test code = 8.67 x10 3/uL 4.5-11.0 N WBC) RED BLOOD CELL (test code = 4.86 x10 6/uL 3.54-5.02 N RBC) HEMOGLOBIN (test code = HGB) 14.5 g/dL 11.0-15.0 N HEMATOCRIT (test code = HCT) 44.1 % 33.0-45.0 N MEAN CELL VOLUME (test code = 90.7 fL 81.0-99.0 N MCV) MEAN CELL HGB (test code = MCH) 29.8 pg 27.0-33.0 N MEAN CELL HGB CONCETRATION 32.9 g/dL 33.0-37.0 L (test code = MCHC) RED CELL DISTRIBUTION WIDTH CV 13.6 % 11.5-14.5 N (test code = RDW) RED CELL DISTRIBUTION WIDTH SD 45.9 fL 37.0-54.0 N (test code = RDW-SD) PLATELET COUNT (test code = 427 x10 3/uL 150-400 H PLT) MEAN PLATELET VOLUME (test code 8.9 fL 7.0-9.0 N = MPV) NEUTROPHIL % (test code = NT%) 84.3 % 56.0-77.0 H IMMATURE GRANULOCYTE % (test 0.5 % 0.0-2.0 N code = IG%) LYMPHOCYTE % (test code = LY%) 10.5 % 14.0-32.0 L MONOCYTE % (test code = MO%) 4.6 % 4.8-9.0 L EOSINOPHIL % (test code = EO%) 0.0 % 0.3-3.7 L BASOPHIL % (test code = BA%) 0.1 % 0.0-2.0 N NUCLEATED RBC % (test code = 0.0 % 0-0 N NRBC%) NEUTROPHIL # (test code = NT#) 7.31 x10 3/uL 2.0-7.6 N IMMATURE GRANULOCYTE # (test 0.04 x10 3/uL 0.00-0.03 H code = IG#) LYMPHOCYTE # (test code = LY#) 0.91 x10 3/uL 1.0-3.8 L MONOCYTE # (test code = MO#) 0.40 x10 3/uL 0.1-0.8 N EOSINOPHIL # (test code = EO#) 0.00 x10 3/uL 0.0-0.2 N BASOPHIL # (test code = BA#) 0.01 x10 3/uL 0.0-0.2 N NUCLEATED RBC # (test code = 0.00 x10 3/uL 0.0-0.1 N NRBC#) MANUAL DIFF REQUIRED (test code NO = MDIFF) BASIC METABOLIC [id number] 16:03:00 Test Item Value Reference Range Interpretation Comments SODIUM (test code = NA) 138 mEq/L 134-147 N POTASSIUM (test code = 4.0 mEq/L 3.4-5.0 N K) CHLORIDE (test code = 107 mEq/L 100-108 N CL) CARBON DIOXIDE (test 27 mEq/L 21-33 N code = CO2) ANION GAP (test code = 8 0-20 N GAP) GLUCOSE (test code = 74 mg/dL 70-110 N GLU) BLOOD UREA NITROGEN 13 mg/dL 7-18 N (test code = BUN) GLOMERULAR FILTRATION 86.7 110-120 L Units of measure = RATE (test code = GFR) ml/mi n/1.73 m2 CREATININE (test code = 0.8 mg/dL 0.6-1.3 N CREAT) CALCIUM (test code = 8.9 mg/dL 8.0-10.5 N CA) HCG SERUM [id number] 16:03:00 Test Item Value Reference Range Interpretation Comments HCG SERUM QUAL (test code = SERUM NEGATIVE NEGATIVE HCGQL) CBC W/AUTO [id number] 16:00:00 Test Item Value Reference Range Interpretation Comments WHITE BLOOD CELL (test code = 7.38 x10 3/uL 4.5-11.0 N WBC) RED BLOOD CELL (test code = 4.46 x10 6/uL 3.54-5.02 N RBC) HEMOGLOBIN (test code = HGB) 13.1 g/dL 11.0-15.0 N HEMATOCRIT (test code = HCT) 39.6 % 33.0-45.0 N MEAN CELL VOLUME (test code = 88.8 fL 81.0-99.0 N MCV) MEAN CELL HGB (test code = MCH) 29.4 pg 27.0-33.0 N MEAN CELL HGB CONCETRATION 33.1 g/dL 33.0-37.0 N (test code = MCHC) RED CELL DISTRIBUTION WIDTH CV 13.6 % 11.5-14.5 N (test code = RDW) RED CELL DISTRIBUTION WIDTH SD 44.1 fL 37.0-54.0 N (test code = RDW-SD) PLATELET COUNT (test code = 351 x10 3/uL 150-400 N PLT) MEAN PLATELET VOLUME (test code 9.3 fL 7.0-9.0 H = MPV) NEUTROPHIL % (test code = NT%) 58.2 % 56.0-77.0 N IMMATURE GRANULOCYTE % (test 0.3 % 0.0-2.0 N code = IG%) LYMPHOCYTE % (test code = LY%) 33.1 % 14.0-32.0 H MONOCYTE % (test code = MO%) 6.9 % 4.8-9.0 N EOSINOPHIL % (test code = EO%) 0.7 % 0.3-3.7 N BASOPHIL % (test code = BA%) 0.8 % 0.0-2.0 N NUCLEATED RBC % (test code = 0.0 % 0-0 N NRBC%) NEUTROPHIL # (test code = NT#) 4.30 x10 3/uL 2.0-7.6 N IMMATURE GRANULOCYTE # (test 0.02 x10 3/uL 0.00-0.03 N code = IG#) LYMPHOCYTE # (test code = LY#) 2.44 x10 3/uL 1.0-3.8 N MONOCYTE # (test code = MO#) 0.51 x10 3/uL 0.1-0.8 N EOSINOPHIL # (test code = EO#) 0.05 x10 3/uL 0.0-0.2 N BASOPHIL # (test code = BA#) 0.06 x10 3/uL 0.0-0.2 N NUCLEATED RBC # (test code = 0.00 x10 3/uL 0.0-0.1 N NRBC#) MANUAL DIFF REQUIRED (test code NO = MDIFF) BASIC METABOLIC [id number] 15:57:00 Test Item Value Reference Range Interpretation Comments SODIUM (test code = NA) mEq/L 134-147 POTASSIUM (test code = K) mEq/L 3.4-5.0 CHLORIDE (test code = CL) mEq/L 100-108 CARBON DIOXIDE (test code = CO2) mEq/L 21-33 ANION GAP (test code = GAP) 0-20 GLUCOSE (test code = GLU) mg/dL 70-110 BLOOD UREA NITROGEN (test code = BUN) mg/dL 7-18 GLOMERULAR FILTRATION RATE (test code 110-120 = GFR) CREATININE (test code = CREAT) mg/dL 0.6-1.3 CALCIUM (test code = CA) mg/dL 8.0-10.5 HCG SERUM [id number] 15:57:00 Test Item Value Reference Range Interpretation Comments HCG SERUM QUAL (test code = SERUM NEGATIVE NEGATIVE HCGQL) - US TRANSVAGINAL NON [id number] 15:45:00 Name: ROSITA JEAN [facility] : 1990 Age/S: 28 / F [address] [place] [address] Unit #: [id number] Loc: Donn [id number] Phys: [facility] Acct: [id number] Dis Date: Status: REG ER PHONE #: [phone] Exam Date: 01/25/2019 1532 FAX #: [phone] Reason: PAIN.VB/ PCOS EXAMS: CPTCODE: [id number] [place] [id number] EXAMINATION: Pelvic ultrasound 01/25/2019. CLINICAL HISTORY: Pelvic pain, bleeding, PCOS. Patient has been bleeding since 5 months ago. COMPARISON: None. FINDINGS: Transabdominal and transvaginal pelvic ultrasound was performed. The uterus mevmnonp57 x 34 x 49 mm. The endometrium measures 3 mm in AP diameter. No focal endometrial abnormalities are evident. No flow is seen in the endometrium on color Doppler imaging. No uterine leiomyomata are evident. The right ovary measures 41 x 20 x 36 mm and the left ovary measures 47 x 15 x 23 mm. Both ovaries demonstrate multiple small relatively uniform size follicles. Both ovaries demonstrate flow on Doppler evaluation. There is no evidence of extraovarian adnexal mass. No free fluid is present in the pelvis. IMPRESSION: 1. 3 mm endometrium without focal abnormality. 2. The sonographic appearance of the ovaries is consistent with the clinical history of PCOS. 3. It is not knownto me whether or not this patient is . There is no sonographic evidence of intrauterine or extrauterine gestation. at 0190 Reported and signed by: Lidia Ramírez M.D. CC: Technologist: Tara Bunch RDMS(OB)(AB) Trnscb Date/Time: 01/25/2019 (1143) [facility] [place] Orig Print D/T: S: 01/25/2019 (6557) Probe: [id number] PAGE 1 Signed Report- US PELVIS [id number] 15:45:00 Name: ROSITA JEAN [facility] : 1990 Age/S: 28 / F [address] [place] [address] Unit #: [id number] Loc: Donn [id number] Phys: Carolyn Dodson Acct: [id number] Dis Date: Status: REG ER PHONE #: [phone] Exam Date: 01/25/20191531 FAX #: [phone] Reason: pelvic pain, bleeding, PCOS EXAMS: CPTCODE: [id number] US PELVIS COMPLETE [id number] EXAMINATION: Pelvic ultrasound 01/25/2019. CLINICAL HISTORY: Pelvic pain, bleeding, PCOS. Patient has been bleeding since 5 months ago. COMPARISON: None. FINDINGS: Transabdominal and transvaginal pelvic ultrasound was performed. The uterus hhynxeir15 x 34 x 49 mm. The endometrium measures 3 mm in AP diameter. No focal endometrial abnormalities are evident. No flow is seen in the endometrium on color Doppler imaging. Nouterine leiomyomata are evident. The right ovary measures 41 x 20 x 36 mm and the left ovary measures 47 x 15 x 23 mm. Both ovaries demonstrate multiple small relatively uniform size follicles. Both ovaries demonstrate flow on Doppler evaluation. There is no evidence of extraovarian adnexal mass. No free fluid is present in the pelvis. IMPRESSION: 1. 3 mm endometrium without focal abnormality. 2. The sonographic appearance of the ovaries is consistent with the clinical history of PCOS. 3. It is not knownto me whether or not this patient is . There is no sonographic evidence of intrauterine or extrauterine gestation. at 1545 Reported and signed by: Lidia Ramírez M.D. CC: Carolyn DEVLIN Technologist: Tara Bunch RDMS(OB)() Trnalb Date/Time: 01/25/2019 (8834) Lizbeth Orig Print D/T: S: 01/25/2019 (8174) Probe: PAGE 1 Signed ReportCOMPREHENSIVE DRUG [id number] 13:52:00 Test Item Value Reference Range Interpretation Comments DRUG TOXICOLOGY SEE HARD COPY FAX TO (test code = DRUG) REPORT
[2021-10-01] MEDS ORDERED: MORPHINE 4 MG/ML SYR ONE (13:24)
[2021-10-01] MEDS ORDERED: ONDANSETRON 4 MG (ODT) TAB ONE (13:25)
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
[2021-10-01] MEDS ORDERED: HYDROCODONE/APAP 10/325 TAB ONE (14:24)
[2021-10-01 15:04] VITALS: TEMP 98.1; O2SAT 100
[2021-10-01 15:06] VITALS: BP 140/96
== END 2021-10-01 14:40 | disposition home or self-care (01) ==
LOC: ER 12:31
DX: M54.50 Low back pain, unspecified (principal); Z88.0 Allergy status to penicillin; Z88.1 Allergy status to other antibiotic agents; Z88.5 Allergy status to narcotic agent; Z88.8 Allergy status to other drugs, medicaments and biological substances; Z91.040 Latex allergy status; Z91.048 Other nonmedicinal substance allergy status
CPT/HCPCS: 96372; 99284

== ENCOUNTER 2021-11-17 17:40 | Emergency (ER) | payer OTHER ==
--- OUTSIDE RECORDS SUMMARY | 2021-11-17 17:47 | XMS REPORT | Continuity of Care Document ---
:1990 Author Organization [facility] t Address [address] [place] [address] Support Name Relationship Address Phone MEGHA HERNANDEZ [address] [facility] [place] [id number] [place] SP [address] [place] [phone] [place] Unavailable [address] [place] [address] ROAD [facility] [phone] [place] [phone] Joaquín Significant Other [address] [phone] [place] [id number] [place] Father [address] [place] [id number] MEGHA, [BF] Unavailable [address] [facility] [phone] [place] [phone] MEGHA LP [address] [facility] [phone] [place] [id number] NOONE Unavailable [address] [facility] [phone] [place] [id number] NONE OT [address] [place] [id number] [place] Unavailable . [phone] [place] [id number] JOAQUÍN [place] Significant [address] [facility] Unavailable [place] [id number] Joaquín [place] Significant Other [address] [facility] [address] [phone] [place] [id number] [place] Unavailable [address] [facility] [phone] [place] [phone] NONE Unavailable [address] [facility] [phone] [place] [phone] Care Team Providers Name Role Phone Andrea Borges MD Primary Care Physician Luz Attending Clinician Unavailable ROX FOSTER Attending Clinician Unavailable Evelin MEDINA Attending Clinician Unavailable Evelin Medina MD Attending Clinician Jasmin Piña Attending Clinician Unavailable EDDOC, FOR EDM Attending Clinician Unavailable Cookie PÉREZ Attending Clinician Unavailable Cookie Pérez DO Attending Clinician Cookie Coles Attending Clinician Unavailable VIVIAN Attending Clinician Unavailable PARUL WASSERMAN Attending Clinician Unavailable DINORAH Attending Clinician Unavailable Doctor Unassigned, Name Attending Clinician Unavailable Lazarus HUYNH Attending Clinician Singer MATTHEWS Attending Clinician Raul BALDWIN JR Attending Clinician Unavailable KRISTIN Attending Clinician Unavailable ROSANNA Attending Clinician Unavailable ROX KINSEY Attending Clinician Unavailable SHILOH Attending Clinician Unavailable TANJA Attending Clinician Unavailable ANA PAULA Attending Clinician Unavailable Larissa Attending Clinician Unavailable Anton MCNAIR Attending Clinician Unavailable LAZARUS Attending Clinician Unavailable HUMERA Attending Clinician Unavailable Visit, Nurse Attending Clinician Unavailable Tyler CASTP, N Attending Clinician Bogdan TEAGUE Attending Clinician Unavailable RACHEL Attending Clinician Unavailable TOMI Attending Clinician Unavailable Physician, Primary or Family Admitting Clinician UnavailSanjuana Roy Admitting Clinician Unavailable Referred Admitting Clinician Unavailable Misty Awad Admitting Clinician Unavailable Danita Admitting Clinician Unavailable Ye_Dionna Admitting Clinician Unavailable LAZARUS Admitting Clinician Unavailable Payers Payer Name Policy Type Policy Number Effective Date Expiration Date [facility] [id number] 2018 [facility] MEDICAID 00:00:00 Advance Directives Directive Decision Effective Termination Comments Source Date Date Healthcare Agents on N/A [facility] FileNameRelations[facility]HealthBr[facility] Agent Medical RelationshipCommunicationKaleida Health Alternate [facility] [phone] (Mobile) Problems Condition Condition Condition Status Onset Resolution Last Treating Co mments Source Name Details Category Date Date Treatment Clinician Date Abdominal Abdominal Disease Active 2018- Uni vers pain pain 6-26 ity of 00:00: [address] Branch Inadequate Inadequate Disease Active 2019- U nivers pain pain 6-25 ity of control control 00:00: [address] Pain of Pain of Disease Active 2019-0 Univers female female 5-23 ity of genitalia genitalia 00:00: [place] avila [address] [place] [address] Pain Pain Disease Active Overview: Univer s pelvic pelvic 5-22 Formattin ity of 00:00: g of this 00 note Medical might be Branch different from the original. Added automatic ally from request for surgery [id number] Irregular Irregular Disease Active Uni vers menstrual menstrual 5-14 ity of cycle cycle 00:00: [place] [facility] Abnormal Abnormal Disease Active Unive rs vaginal vaginal 5-14 ity of bleeding bleeding 00:00: [place] [facility] Branch PCOS PCOS Disease Active Univers (polycysti (polycysti 5-14 it y of c ovarian c ovarian 00:[place] syndrome[place] syndrome[place] 00 [facility] Depo-Prove Depo-Prove Disease Active U nivers ra ra 5-14 [place]y of contracept contracept [place] du[place] status duyen status 00 [facility] PCOS PCOS Disease Active Univers (polycysti (polycysti 5-14 it y of c ovarian c ovarian 00:[place] syndrome[place] syndrome) 00 [facility] Well woman Well woman Disease Active U nivers exam exam 2-06 ity of 00:: [place] [facility] Screen for Screen for Disease Active U nivers STD STD 2-06 ity of (sexually (sexually 00:[place] transmitte transmitte 00 Ar dical d disease) d disease) Br anch History of History of Disease Active U nivers seizures seizures 2-06 ity of 00:00: [place] [facility] BMI BMI Disease Active 2018- Univers 28.0-28.9, 28.0-28.9, 2-06 it y of adult adult 00:00: [place] [facility] Over Over Disease Active Univers weight weight 2-06 ity of 00:00: [place] [facility] History of History of Disease Active U nivers seizures seizures 2-06 ity of 00:00: [place] [address] Medical Branch History of 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 [place] [facility] Pelvic Pelvic Problem Active Univers pain pain ity of [place] [facility] Pelvic Pelvic Problem Active Univers inflammato inflammato it y of ry disease ry disease [place] (PID) (PID) Physici ans Irregular Irregular Problem Active Uni vers bleeding bleeding ity of [place] [facility] Problem Active U nivers follow-up follow-up ity of [place] [facility] Bacterial Bacterial Problem Active Uni vers vaginosis vaginosis ity of [place] [facility] Yeast Yeast Problem Active Univers infection infection ity of [place] [facility] Abnormal Abnormal Problem Active Unive rs uterine uterine ity of bleeding bleeding [place] [facility] Anemia Anemia Problem Active Univers ity of [place] [facility] Allergies, Adverse Reactions, Alerts Allergy Allergy Status Severity Reaction(s) Onset Inactive Treating Comm ents Source Name Type Date Date Clinician MEPERIDI DRUG Active Rash 2020-09 Univers NE INGREDI 09-22 ity of 00:00: [place] 00 Medical Branch Meperidi Propensi Active Rash 2020-09 Univer s ne ty to 09-22 ity of adverse 00:00: [place] reaction 00 Medical s Branch Latex, DA Active U [facility] Natural 12-27 [facility] Rubber 00:00: [facility] doxycycl DA Active U [facility] ine 12-27 [facility] 00:00: [facility] amoxicil DA Active U 0 [facility] jami 12-27 [facility] 00:00: [facility] tramadol DA Active U 2020-0 [facility] - [facility] 00:00: [facility] metoclop DA Active U 2020-0 [facility] ramide 12-27 [facility] 00:00: [facility] ketorola DA Active U 2020-0 [facility] c 12-27 [facility] 00:00: [facility] Latex, DA Active U RASH [facility] Natural 12-27 [place] Rubber 00:00: [facility] doxycycl DA Active U RASH, THROAT 0 HC A ine SWELLING 12-27 [facility] 00:00: [facility] 00 [facility] amoxicil DA Active U RASH, THROAT 0 HC A jami SWELLING 12-27 [facility] 00:00: [facility] tramadol DA Active U RASH, THROAT 0 HC A SWELLING 12-27 [facility] 00:00: [facility] 00 [facility] metoclop DA Active U RASH, THROAT 0 HC A ramide SWELLING 12-27 [facility] 00:00: [facility] ketorola DA Active U RASH, THROAT 2020-0 HC A c SWELLING 12-27 [facility] 00:[facility] Penicill DA Active SV 2020-1 [facility] ins 2-18 [facility] 00:[facility] doxycycl DA Active SV 2020-1 [facility] ine 2-18 [facility] 00:[facility] adhesive DA Active SV 2020-1 [facility] tape 2-18 [facility] 00:[facility] amoxicil DA Active SV 2020-1 [facility] jami 2-18 [facility] 00:[facility] lamotrig DA Active SV 2020-1 [facility] ine 2-18 [facility] 00:[facility]: [facility] tramadol DA Active SV 2020-1 [facility] 2-18 [facility] 00:[facility]: [facility] trazodon DA Active SV 2020-1 [facility] e 2-18 [facility] 00:[facility]: [facility] metoclop DA Active SV 2020-1 [facility] ramide 2-18 [facility] 00:00: [facility] ketorola DA Active SV 2020-1 [facility] c 2-18 [facility] 00:[facility]: [facility] latex DA Active SV 2020-1 [facility] 2-18 [facility] 00:00: [facility] Penicill DA Active SV rash 2020-1 [facility] ins 2-18 [facility] 00:[facility]: [facility] doxycycl DA Active SV rash 2020-1 [facility] ine 2-18 [facility] 00:00: [facility] adhesive DA Active SV raya 2020-1 [facility] tape 2-18 [facility] 00:[facility]: [facility] amoxicil DA Active SV rash 2020-1 [facility] jami 2-18 [facility] 00:[facility]: [facility] lamotrig DA Active SV rash, sob, 2020-1 [facility] tramadol DA Active SV hives 2020-1 [facility] 2-18 [facility] 00:[facility]: [facility] trazodon DA Active SV rash 2020-1 [facility] e 2-18 [facility] 00:[facility]: [facility] metoclop DA Active SV rash 2020-1 [facility] ramide 2-18 [facility] 00:00: [facility] ketorola DA Active SV hives 2020-1 [facility] c 2-18 [facility] 00:00: [facility] latex DA Active SV raya 2020-1 [facility] 2-18 [facility] 00:00: [facility] ketorola DA Active U 2020-1 [facility] c 2-10 Clear 00:00: [place] 00 [facility] latex DA Active MO 2020-1 [facility] 2-10 Clear 00:00: [place] 00 [facility] Penicill DA Active U 2020-1 [facility] ins 2-10 Clear 00:00: [place] 00 [facility] doxycycl DA Active U 2020-1 [facility] ine 2-10 Clear 00:00: [place] 00 [facility] adhesive DA Active RI 2020- [facility] tape 2-10 Clear 00:00: [place] 00 [facility] amoxicil DA Active U 2020- [facility] jami 2-10 Clear 00:00: [place] 00 [facility] Penicill DA Active U RASH 2020- [facility] ins 2-10 Clear 00:00: [place] 00 [facility] doxycycl DA Active U RASH 2020- [facility] ine 2-10 Clear 00:00: [place] 00 [facility] adhesive DA Active RI RASH 2020- [facility] tape 2-10 Clear 00:00: [place] 00 [facility] amoxicil DA Active U RASH 2020- [facility] jami 2-10 Clear 00:00: [place] [facility] lamotrig DA Active RI 2020-1 [facility] ine 2-10 Clear 00:00: [place] 00 [facility] lamotrig DA Active RI RASH 2020-1 [facility] ine 2-10 Clear 00:00: [place] 00 [facility] tramadol DA Active U SHORTNESS OF 2019- HC A BREATH 2-10 Clear 00:00: [place] 00 [facility] trazodon DA Active U RASH-UNKNOWN 2019- HC A e 2-10 Clear 00:00: [place] 00 [facility] metoclop DA Active SV SHORTNESS OF 2019- HC A ramide BREATH 2-10 Clear 00:00: [place] 00 [facility] ketorola DA Active U RASH 2020-1 [facility] c 2-10 Clear 00:00: [place] 00 [facility] latex DA Active MO RASH 2020-1 [facility] 2-10 Clear 00:00: [place] 00 [facility] tramadol DA Active U 2020-1 [facility] 2-10 Clear 00:00: [place] 00 [facility] trazodon DA Active U 2020-1 [facility] e 2-10 Clear 00:00: [place] 00 [facility] metoclop DA Active SV 2019-09 [facility] ramide 2-10 Clear 00:00: [place] 00 [facility] Hydromor Propensi Active Other - See 2019-0 Personal i Univers phone ty to comments 03-03 ty ity of (Bulk) adverse 00:00: changes [place] reaction 00 "makes me Medic al s crazy" Branch please don't give. HYDROMOR DRUG Active Other-Cmnt 2019-0 Univ ers PHONE 03-03 ity of (BULK) [...] 00 l of [place] lamotrig DA Active RI RASH 2017-09 [facility] ine 2-11 Woman's 00:00: [...] l of [place] Penicill DA Active U 2017- [facility] ins 2-11 Clear 00:00: [place] 00 [facility] doxycycl DA Active U 2017-09 [facility] ine 2-11 Clear 00:00: [place] 00 [facility] amoxicil DA Active U 2017-09 [facility] jami 2-11 Clear 00:00: [place] 00 [facility] lamotrig DA Active RI 2017- [facility] ine 2-11 Clear 00:00: [place] 00 [facility] tramadol DA Active U 2018- [facility] 2-11 Clear 00:00: [place] 00 [facility] trazodon DA Active U 2017- [facility] e 2-11 Clear 00:00: [place] 00 [facility] meperidi DA Active U 2017- [facility] ne 2-11 Clear 00:00: [place] 00 [facility] metoclop DA Active SV 2017- [facility] ramide 2-11 Clear 00:00: [place] 00 [facility] ketorola DA Active U 2017- [facility] c 2-11 Clear 00:00: [place] 00 [facility] latex DA Active MO 2017- [facility] 2-11 Clear 00:00: [place] 00 [facility] Penicill DA Active U 2017- [facility] ins - [facility] 00:00: [facility] 00 [facility] [place] doxycycl DA Active U 2017- [facility] ine - [facility] 00:00: [facility] 00 [facility] [place] amoxicil DA Active U 2017- [facility] jami 1- [facility] 00:00: [facility] 00 [facility] [place] lamotrig DA Active RI 2017- [facility] ine - [facility] 00:00: [facility] 00 l [facility] [place] tramadol DA Active U 2017- [facility] 1-04 [facility] 00:00: [facility] 00 [facility] [place] trazodon DA Active U 2017- [facility] e -04 [facility] 00:00: [facility] 00 [facility] [place] meperidi DA Active U 2017- [facility] ne -04 [facility] 00:00: [facility] 00 [facility] [place] ketorola DA Active U 2017- [facility] c 1-04 Woman's 00:00: [facility] 00 l [facility] [place] latex DA Active MO 2018-1 [facility] 1-04 Woman's 00:00: [facility] 00 [facility] [place] metoclop DA Active SV 2017- [facility] ramide 1-04 Woman's 00:00: [facility] 00 l [facility] [place] TAPE DA Active RI RASH 2017- [facility] 1-04 Clear 00:00: [place] 00 [facility] tramadol DA Active U 2017-1 [facility] 0-29 Woman's 00:00: [facility] 00 [facility] [place] Penicill DA Active U 2018-0 [facility] ins 9- Woman's 00:00: [facility] 00 [facility] [place] doxycycl DA Active U 2018-0 [facility] ine 9-02 Woman's 00:00: [facility] 00 [facility] [place] amoxicil DA Active U 2018-0 [facility] jami 9-02 Woman's 00:00: [facility] 00 [facility] [place] lamotrig DA Active RI 2018-0 [facility] ine 9- Woman's 00:00: [facility] 00 l [facility] [place] tramadol DA Active U 2018-0 [facility] 9-02 Woman's 00:00: [facility] 00 [facility] [place] trazodon DA Active U 2018-0 [facility] e 9- Woman's 00:00: [facility] 00 [facility] [place] meperidi DA Active U 2018-0 [facility] ne 9- Woman's 00:00: [facility] 00 [facility] [place] ketorola DA Active U 2018-0 [facility] c 9- Woman's 00:00: [facility] 00 l [facility] [place] latex DA Active MO 2018-0 [facility] 9- Woman's 00:00: [facility] 00 l [facility] [place] Adhesive Propensi Active Rash 2018-0 [facility] Uni [...] 00 Medical Branch Trazodon Propensi Active Rash 2017- Univer s e ty to 2-08 ity of adverse 00:00: [place] reaction 00 Medical s Branch Doxycycl Propensi Active Swelling 0 Univ ers ine Hcl ty to 7-19 ity of adverse 00:00: [place] reaction Medical s Branch Latex Propensi Active Rash 2015-0 Univers ty to 7-19 ity of adverse 00:00: [place] reaction 00 Medical s Branch Penicill Propensi Active Swelling 0 Univ ers ins ty to 7-19 ity of adverse 00:00: [place] reaction Medical s Branch DOXYCYCL DRUG Active Swelling 0 Univer s INE HCL INGREDI 7-19 ity of 00:00: [place] 00 Medical Branch LATEX DRUG Active Rash 0 Univers INGREDI 03-24 ity of 00:00: [place] 00 Medical Branch PENICILL Drug Active Swelling 0 Univer s INS Class 03-24 ity of 00:00: [place] 00 Medical Branch doxycycl DA Active U 0 [facility] ine 719 Woman[facility] 00:00: [facility] 00 [facility] [place] amoxicil DA Active U [facility] jami 7 Woman's 00:00: [facility] 00 l [facility] [place] lamotrig DA Active RI [facility] ine 7 Woman's 00:00: [facility] 00 [facility] [place] tramadol DA Active U [facility] 7 Woman's 00:00: [facility] 00 l [facility] [place] latex DA Active MO [facility] 03-24 Woman's 00:00: [facility] 00 l [facility] [place] Amoxicil Propensi Active Rash 0 Univer s jami ty to 3-16 ity of adverse 00:00: [place] reaction 00 Medical s Branch Lamotrig Propensi Active Rash 0 Univer s ine ty to 3-16 ity of adverse 00:00: [place] reaction 00 Medical s Branch Ketorola Propensi Active Rash 2015-0 Univer s c ty to 3-16 ity [...] 00 Medical Branch KETOROLA DRUG Active Rash 2015-0 Univers C INGREDI 3-16 ity of TROMETHA 00:00: [place] MINE 00 Medical Branch TRAMADOL DRUG Active Rash 2016-0 Univers INGREDI 3-16 ity of 00:00: [place] 00 Medical Branch Amoxicil Allergy Active Univers jami TABS to drug ity of (finding [place] ) Physici ans Demerol Allergy Active Univers TABS to drug ity of (finding [place] ) Physici ans Doxycycl Allergy Active Univers ine to drug ity of Monohydr (finding [place] ate CAPS ) Physici ans LaMICtal Allergy Active Univers TABS to drug ity of (finding [place] ) Physici ans Latex Allergy Active Univers Gloves to drug ity of (finding [place] ) Physici ans Penicill Allergy Active Univers ins to drug ity of (finding [place] ) Physici ans Tramadol Allergy Active Univers to drug ity of (finding [place] ) Physici ans Toradol Allergy Active Univers SOLN to drug ity of (finding [place] ) Physici ans Social History Social Habit Start Date Stop Date Quantity Comments Source Exposure to Not sure University of SARS-CoV-2 [place] [facility] (event) Branch History of Cigarette Smoker Universi ty of tobacco use [place] [facility] History SDME University o f Alcohol Frequency [facility] edical Branch History SDME University o f Alcohol Std [place] [facility] Drinks Branch History SDME University o f Alcohol Binge [place] [facility] Alcohol intake 2021-11-16 2021-11-16 Current drinker of Un iversity of 00:00:00 00:00:00 alcohol (finding) [facility] edical [place] Alcohol Comment 2018-10-11 2018-10-11 occasionally Univers ity of 00:00:00 00:00:00 [place] [facility] Tobacco use and 2018-05-03 2018-05-03 Never used Universit y of exposure 00:00:00 00:00:00 [place] [facility] Sex Ass[birth year] At [birth year] Universit y of 00:00:00 00:00:00 [place] [facility] Smoking Status Start Date Stop Date Source Never smoked tobacco [facility] (finding) Physicians Current some day smoker 2018-05-03 00:00:00 [facility] Medications Ordered Filled Start Stop Current Ordering Indication Dosage Frequency Signature Comments Components Source Medication Medication Date Date Medication? Clinician (SIG) Name Name FENTanyl PF No 75ug 75 mcg, Un travis (SUBLIMAZE 3-14 03-14 Intramuscu it y of (PF)) 03:15: 02:19 lar, ONCE, [place] injection 00 :00 1 dose, On Medi shanice 75 mcg [facility] 11/16/21 at 2215, Routine FENTanyl PF No 75ug 75 mcg, Un travis (SUBLIMAZE 1-25 01-25 Intramuscu it y of (PF)) 22:30: 21:28 lar, ONCE, [place] injection 00 :00 1 dose, On Medi shanice 75 mcg [facility] 09/30/21 at 1630, Routine diazePAM 2021- No 5mg 5 mg, Univers (VALIUM) 09-30 Oral, ity of tablet 5 mg 20:45: 20:22 [place]CE, 1 [place] 00 :[place] dose, On Medical [facility] 09/30/21 at 1445, LUPE FENTanyl PF 2021- No 50ug 50 mcg, Un travis (SUBLIMAZE 09-30 Intramuscu it y of (PF)) 20:45: 20:23 lar, ONCE, [place] injection 00 :00 1 dose, On Medi shanice 50 mcg [facility] 09/30/21 at 1445, Routine dexamethaso 2021- No 10mg 10 mg, Uni vers ne 09-30 Intramuscu ity of (DECADRON 20:45: 20:24 [place], ONCE, [place] PHOSPHATE) 00 :00 1 dose, On Med ical injection [facility] 10 mg 09/30/21 at 1445, STAT dicyclomine Yes 20mg 20 mg, Univ ers (BENTYL) 12-22 Intramuscu ity o f injection 13:00: lar, QID, [place] 20 mg 00 First dose Medical on [facility] 12/22/20 at 0800, Until Discontinu ed, Routine ondansetron 2020- No 4mg 4 mg, Slow Univers (ZOFRAN 12-22 IV Push, ity of (PF)) 06:15: 05:10 ONCE, 1 [place] injection 4 00 :00 dose, Sun Med ical mg 12/22/20 at Branch 0115, LUPE pantoprazol 2020- No 40mg 40 mg, IV Univers e 12-22 Piggyback, ity of (PROTONIX) 05:45: 05:11 ONCE, 1 [place] 40 mg in 00 :00 dose, Sun Medica l NaCl 0.9% 12/22/20 at [facility] ch (NS) 100 mL 0045, 100 MINI-BAG mL FENTanyl PF 2020- No 25ug 25 mcg, Un travis (SUBLIMAZE 12-22 Slow IV ity o f (PF)) 05:41: 05:42 Push, [place] injection 00 :00 ONCE, 1 Medical 25 mcg dose, Sun Branch 12/22/20 at 0045, STAT iohexol 2020- No [id number] 150mL 150 mL, U nivers (OMNIPAQUE 12-2218 Intravenou it y of 350 05:30: 05:18 s, ONCE, 1 [place] BULK-150 00 :00 dose, Sun Medica l mL) 12/22/20 at Branch injection 0030, 150 mL Routine NaCl 0.9% 2020- No 1000mL at 999 Uni vers (NS) bolus 12-2218 mL/hr, ity of infusion 04:30: 06:00 1,000 mL, Zay as 1,000 mL 00 :00 IV Medical Infusion, Branch ONCE, 1 dose, 12/21/20 at 2330, STAT ondansetron 2020- No 4mg 4 mg, Slow Univers (ZOFRAN 12-22 IV Push, ity of (PF)) 04:30: 04:24 ONCE, 1 [place] injection 4 00 :00 dose, Sat Med ical mg 12/21/20 at Branch 2330, LUPE pantoprazol 0 Yes [id number] 40mg Take 1 Univers e 4-18 tablet by ity of (PROTONIX) 00:00: mouth [place] 40 mg EC 00 daily. Medical tablet Branch dicyclomine 0 Yes [id number] 20mg Take 1 Univers 20 mg 4-18 tablet by ity of tablet 00:00: mouth [place] 00 every 6 Medical (six) Branch hours as needed for Abdominal pain. ondansetron 2020-0 Yes [id number] 4mg Take 1 Univers (ZOFRAN) 4 4-18 tablet by ity of mg tablet 00:00: mouth [place] 00 every 8 Medical (eight) Branch hours as needed for Nausea and Vomiting (N/V). pantoprazol 2020-0 Yes [id number] 40mg Take 1 Univers e 4-18 tablet by ity of (PROTONIX) 00:00: mouth [place] 40 mg EC 00 daily. Medical tablet Branch dicyclomine 0 Yes [id number] 20mg Take 1 Univers 20 mg 4-18 tablet by ity of tablet 00:00: mouth [place] 00 every 6 Medical (six) Branch hours as needed for Abdominal pain. ondansetron 2020-0 Yes [id number] 4mg Take 1 Univers (ZOFRAN) 4 4-18 tablet by ity of mg tablet 00:00: mouth [place] 00 every 8 Medical (eight) Branch hours as needed for Nausea and Vomiting (N/V). pantoprazol 2020-0 Yes [id number] 40mg Take 1 Univers e 4-18 tablet by ity of (PROTONIX) 00:00: mouth [place] 40 mg EC 00 daily. Medical tablet Branch dicyclomine 0 Yes [id number] 20mg Take 1 Univers 20 mg 4-18 tablet by ity of tablet 00:00: mouth [place] 00 every 6 Medical (six) Branch hours as needed for Abdominal pain. ondansetron 0 Yes [id number] 4mg Take 1 Univers (ZOFRAN) 4 4-18 tablet by ity of mg tablet 00:00: mouth [place] 00 every 8 Medical (eight) Branch hours as needed for Nausea and Vomiting (N/V). pantoprazol 2020-0 Yes [id number] 40mg Take 1 Univers e 4-18 tablet by ity of (PROTONIX) 00:00: mouth [place] 40 mg EC 00 daily. Medical tablet Branch dicyclomine 2020-0 Yes [id number] 20mg Take 1 Univers 20 mg 4-18 tablet by ity of tablet 00:00: mouth [place] 00 every 6 Medical (six) Branch hours as needed for Abdominal pain. ondansetron 0 Yes [id number] 4mg Take 1 Univers (ZOFRAN) 4 4-18 [...] 08/15/20 Branch at 0445, Routine FENTanyl PF 2019-09 2020- No 75ug 75 mcg, Un travis (SUBLIMAZE [...] (scale 4-6). Indication s: acute pain acetaminoph 2020- Yes [id number] 1{tbl} Take 1-2 Univers en-codeine 2-10 tablets by ity of 300-30 mg 00:00: mouth [place] tablet 00 every 6 Medical (six) Branch hours as needed for Pain (scale 4-6). Indication s: acute pain FENTanyl PF 2019-0 2020- No 50ug 50 mcg, Un travis (SUBLIMAZE 04-14- Slow IV ity o f (PF)) 05:15: 04:15 Push, [place] injection 00 :00 ONCE, 1 Medical 50 mcg dose, Sun Branch 04/14/20 at 0015, Routine FENTanyl PF 2019-0 2020- No 50ug 50 mcg, Un travis (SUBLIMAZE 04-14- Slow IV ity o f (PF)) 03:45: 02:42 Push, [place] injection 00 :00 ONCE, 1 Medical 50 mcg dose, [facility] 04/13/20 at 2245, Routine iohexol 2019-2019- No 120mL 120 mL, Unive rs (OMNIPAQUE 04-14 Intravenou it y of 350 02:30: 02:30 s, ONCE, 1 [place] BULK-150 00 :00 dose, Sat Medica l mL) 04/13/20 at Branch injection 2130, 120 mL Routine ondansetron 2019- No 4mg 4 mg, Slow Univers (ZOFRAN 04-14 IV Push, ity of (PF)) 02:15: 01:22 ONCE, 1 [place] injection 4 00 :00 dose, Sat Med ical mg 04/13/20 at Branch 2115, LUPE FENTanyl PF 2019-0 2020- No 50ug 50 mcg, Un travis (SUBLIMAZE 04-14 Slow IV ity o f (PF)) 02:15: 01:23 Push, [place] injection 00 :00 ONCE, 1 Medical 50 mcg dose, [facility] 04/13/20 at 2115, Routine acetaminoph 2019- Yes 4647 1{tbl} Take 1 Un travis [...] 4 mg, Slow Un travis injection 4 8 08-05 IV Push, ity of mg 00:45: 23:39 ONCE, 1 [place] 00 :00 dose, Wed Medical 04/10/20 at Branch 1945, STAT FENTanyl PF 2019-0 2020- No 100ug 100 mcg, Univers (SUBLIMAZE 04-10 Slow IV ity o f (PF)) 23:45: 22:44 Push, [place] injection 00 :00 ONCE, 1 Medical 100 mcg dose, Wed Branch 04/10/20 at 1845, Routine morpHINE 2019-0 2020- No 4mg 4 mg, Slow Un travis injection 4 04-10-05 IV Push, ity of mg 23:15: 22:07 ONCE, 1 [place] 00 :00 dose, [facility] Medical 04/10/20 at Branch 1815, STAT iohexol 2019-0 2020- No 120mL 120 mL, Unive rs (OMNIPAQUE 04-1005 Intravenou it y of 350 23:00: 22:50 s, ONCE, 1 [place] BULK-150 00 :00 dose, Wed Medica l mL) 04/10/20 at [place] injection 1800, 120 mL Routine ondansetron 2019-0 2020- No 4mg 4 mg, Slow Univers (ZOFRAN 04-10 IV Push, ity of (PF)) 22:00: 21:41 ONCE, 1 [place] injection 4 00 :00 dose, Wed Med ical mg 04/10/20 at Branch 1700, LUPE morpHINE 2019-0 2020- No 4mg 4 mg, Slow Un travis injection 4 04-10-05 IV Push, ity of mg 22:00: 21:41 ONCE, 1 [place] 00 :00 dose, [facility] Medical 04/10/20 at Branch 1700, STAT HYDROcodone 2019-0 2020- No 4647 1{tbl} Take 1 U nivers -acetaminop - 08-13 tablet by it y of hen (NORCO) 00:00: 04:59 [place] 10-325 mg 00 :00 every 6 Medical tablet (six) Branch hours as needed for Pain (scale 7-10) for up to 7 days. Indication s: acute pain HYDROcodone 2020-0 2020- No 4647 1{tbl} Take 1 U nivers -acetaminop 8-05 08-13 tablet by it y of hen (NORCO) 00:00: 04:59 [place] 10-325 mg 00 :00 every 6 Medical tablet (six) Branch hours as needed for Pain (scale 7-10) for up to 7 days. Indication s: acute pain HYDROcodone 2019-0 2020- No 4647 1{tbl} Take 1 U nivers -acetaminop 8-05 08-13 tablet by it y of hen (NORCO) [...] bleeding. IBU 600 MG IBU 600 MG 2020-0 Yes SAMIR Q0.3333D TAKE 1 Univers Oral [...] Zay as 00 Physici ans metroNIDAZO metroNIDAZO 2019-0 Yes JUNE Q0.5D TAKE 1 Univers LE 500 MG LE 500 MG 5-28 KOTHARE TABLET ity of Oral Tablet Oral Tablet 00:00: D.O. TWICE [place] 00 DAILY Physici UNTIL ans FINISHED. maalox:diph 2019-0 2019- No 15mL 15 mL, Uni vers enhydrAMINE 10-12 Oral, ity of :lidocaine 06:30: 05:29 ONCE, 1 [place] as 2 % viscous 00 :00 dose, [place] Med ical 1:1:1 10/12/19 at Branch (FIRST-MOUT 0030, LUPE HWASH BLM) oral suspension 15 mL dexamethaso 2019- 2020- No 8mg 8 mg, Univ ers ne 10-12 Intramuscu ity of (DECADRON 05:00: 04:10 [place], ONCE, [place] PHOSPHATE) 00 :00 1 dose, Medica l injection 8 Wed10/11/19 Br anch mg at 2300, STAT fluconazole 2020-0 2020- No [id number] 150mg Take 1 Univers 150 mg 10-12 tablet by ity of tablet 00:00: 05:59 [place] 00 :00 now for 1 Medical dose. [place] nystatin 2020-0 Yes [id number] Apply to Univers 100,000 2-05 affected ity of unit/gram 00:00: area(s) 3 Zay as ointment 00 (three) Medical times Branch daily. nystatin 2020-0 Yes [id number] Apply to Univers 100,000 2-05 affected ity of unit/gram 00:00: area(s) 3 [place] as ointment 00 (three) Medical times Branch daily. nystatin 2020-0 Yes [id number] Apply to Univers 100,000 2-05 affected ity of unit/gram 00:00: area(s) 3 [place] ointment 00 (three) Medical times Branch daily. nystatin 2020-0 Yes [id number] Apply to Univers 100,000 2-05 affected ity of unit/gram 00:00: area(s) 3 [place] ointment 00 (three) Medical times Branch daily. nystatin 2020-0 Yes [id number] Apply to Univers 100,000 2-05 affected ity of unit/gram 00:00: area(s) 3 [place] ointment 00 (three) Medical times Branch daily. nystatin 2020-0 Yes [id number] Apply to Univers 100,000 2-05 affected ity of unit/gram 00:00: area(s) 3 [place] ointment 00 (three) Medical times Branch daily. nystatin 2020-0 Yes [id number] Apply to Univers 100,000 2-05 affected ity of unit/gram 00:00: area(s) 3 [place] ointment 00 (three) Medical times Branch daily. nystatin 2020-0 Yes [id number] Apply to Univers 100,000 2-05 affected ity of unit/gram 00:00: area(s) 3 [place] ointment 00 (three) Medical times Branch daily. nystatin 2020-0 Yes [id number] Apply to Univers 100,000 2-05 affected ity of unit/gram 00:00: area(s) 3 [place] ointment 00 (three) Medical times Branch daily. nystatin 2020-0 Yes [id number] Apply to Univers 100,000 2-05 affected ity of unit/gram 00:00: area(s) 3 [place] ointment 00 (three) Medical times Branch daily. nystatin 2020-0 Yes [id number] Apply to Univers 100,000 2-05 affected ity [...] DAILY Physici UNTIL ans FINISHED. CefTRIAXone CefTRIAXone 2018-09 Yes MAO Inject Univers Sodium 250 Sodium 250 0-23 GRUBBS 250mg IM ity of MG MG 00:00: M.D. in clinic [place] Injection Injection 00 Physi ci Solution Solution ans Reconstitut Reconstitut ed ed Sprintec 28 Sprintec 28 2018-09 Yes MAO 1 QD TAKE 1 Univers 0.25-35 0.25-35 0-23 GRUBBS TABLET ity of MG-MCG Oral MG-MCG Oral 00:00: M.D. DAILY [place] Tablet Tablet 00 DIRECTED. Physic i ans medroxyPROG Yes [id number] 150mg Univers ESTERone 5-14 ity of (DEPO-PROVE 18:30: [place] RA) 00 Medical injection Branch 150 mg medroxyPROG Yes [id number] 150mg Univers ESTERone 5-14 ity of (DEPO-PROVE 18:30: [place] RA) 00 Medical injection Branch 150 mg medroxyPROG 2019-0 Yes [id number] 150mg Univers ESTERone 5-14 ity of (DEPO-PROVE 18:30: [place] RA) 00 Medical injection Branch 150 mg medroxyPROG 2019-0 Yes [id number] 150mg Univers ESTERone 5-14 ity of (DEPO-PROVE 18:30: [place] RA) 00 Medical injection Branch 150 mg medroxyPROG 2019-0 Yes [id number] 150mg Univers ESTERone 5-14 ity of (DEPO-PROVE 18:30: [place] RA) 00 Medical injection Branch 150 mg medroxyPROG 2019-0 Yes [id number] 150mg Univers ESTERone 5-14 ity of (DEPO-PROVE 18:30: [place] RA) 00 Medical injection Branch 150 mg medroxyPROG 2019-0 Yes [id number] 150mg Univers ESTERone 5-14 ity of (DEPO-PROVE 18:30: [place] RA) 00 Medical injection Branch 150 mg medroxyPROG 2019-0 Yes [id number] 150mg Univers ESTERone 5-14 ity of (DEPO-PROVE 18:30: [place] RA) 00 Medical injection Branch 150 mg medroxyPROG 2019-0 Yes [id number] 150mg Univers ESTERone 5-14 ity of (DEPO-PROVE 18:30: [place] RA) 00 Medical injection Branch 150 mg medroxyPROG 2019-0 Yes [id number] 150mg Univers ESTERone 5-14 ity of (DEPO-PROVE 18:30: [place] RA) 00 Medical injection Branch 150 mg medroxyPROG 2019-0 Yes [id number] 150mg Univers ESTERone 5-14 ity of (DEPO-PROVE 18:30: [place] RA) 00 Medical injection Branch 150 mg medroxyPROG 2019-0 Yes [id number] 150mg Univers ESTERone 5-14 ity of (DEPO-PROVE 18:30: [place] RA) 00 Medical injection Branch 150 mg medroxyPROG 2019-0 Yes [id number] 150mg Univers ESTERone 5-14 ity of (DEPO-PROVE 18:30: [place] RA) 00 Medical injection Branch 150 mg medroxyPROG 2019-0 Yes [id number] 150mg Univers ESTERone 5-14 ity of (DEPO-PROVE 18:30: [place] RA) 00 Medical injection Branch 150 mg medroxyPROG 2018- Yes [id number] 150mg Univers ESTERone 5-14 ity of (DEPO-PROVE 18:30: [place] RA) 00 Medical injection Branch 150 mg medroxyPROG 2018- Yes [id number] 150mg 150 mg, Univers ESTERone 5-14 Intramuscu ity o f (DEPO-PROVE 18:30: lar, [place] RA) 00 [id number], Medical injection First dose Bran ch 150 mg on Wed01/17/19 at 1330, Until Discontinu ed, Routine medroxyPROG Yes [id number] 150mg Univers ESTERone 5-14 ity of (DEPO-PROVE 18:30: [place] RA) 00 Medical injection Branch 150 mg medroxyPROG Yes [id number] 150mg Univers ESTERone 5-14 ity of (DEPO-PROVE 18:30: [facility]) 00 Medical injection Branch 150 mg Keppra 500 Keppra 500 Yes M.D. U nivers MG Oral MG Oral 1-02 ity of Tablet Tablet 00:00: [place] 00 Physici ans Vital Signs Vital Name Observation Time Observation Value Comments Source Systolic blood 2021-11-17 157 mm[Hg] University of pressure 01:24:00 [place] [facility] Diastolic blood 2021-11-17 99 mm[Hg] [facility] pressure 01:24:00 [place] [facility] Heart rate 2021-11-17 98 /min [facility] 01:24:00 [place] [facility] Body temperature 2021-11-17 36.83 Alisha [facility] 01:24:00 [place] [facility] Respiratory rate 2021-11-17 18 /min [facility] 01:24:00 [place] [facility] Body height 2021-11-17 160 cm [facility] 01:24:00 [place] [facility] Body weight 2021-11-17 70.761 kg [facility] 01:24:00 [place] [facility] BMI 2021-11-17 27.63 kg/m2 [facility] 01:24:00 [place] [facility] Oxygen saturation 2021-11-17 100 /min [facility] in Arterial blood 01:24:00 [facility] by Pulse oximetry Branch Systolic blood 2021-09-30 108 mm[Hg] University of pressure 19:27:00 [facility] Branch Diastolic blood 2021-09-30 97 mm[Hg] University o f pressure 19:27:00 [facility] Branch Heart rate 2021-09-30 108 /min University of 19:27:00 [facility] Branch Body temperature 2021-09-30 37 Alisha University of 19:27:00 [facility] Branch Respiratory rate 2021-09-30 18 /min University of 19:27:00 [place] [facility] Body weight 2021-09-30 71.668 kg University of 19:27:00 [place] [facility] BMI 2021-09-30 27.99 kg/m2 University of 19:27:00 [facility] Branch Oxygen saturation 2021-09-30 100 /min University of in Arterial blood 19:27:00 [place] Medi shanice by Pulse oximetry Branch Systolic blood 2021-07-23 146 mm[Hg] University of pressure 22:12:00 [facility] Branch Diastolic blood 2021-07-23 104 mm[Hg] University o f pressure 22:12:00 [facility] Branch Heart rate 2021-07-23 104 /min University of 22:12:00 [place] [facility] Body temperature 2021-07-23 36.83 Alisha University of 22:12:00 [facility] Branch Respiratory rate 2021-07-23 20 /min University of 22:12:00 [place] [facility] Body weight 2021-07-23 71.668 kg University of 22:12:00 [place] [facility] BMI 2021-07-23 27.99 kg/m2 University of 22:12:00 [place] [facility] Oxygen saturation 2021-07-23 100 /min University of in Arterial blood 22:12:00 [place] Medi shanice by Pulse oximetry Branch Respiratory rate 2020-12-22 18 /min University of 06:05:00 [facility] Branch Systolic blood 2020-12-22 138 mm[Hg] University of pressure 06:00:00 [place] [facility] Diastolic blood 2020-12-22 93 mm[Hg] University o f pressure 06:00:00 [facility] Branch Heart rate 2020-12-22 76 /min University of 06:00:00 [facility] Branch Oxygen saturation 2020-12-22 96 /min University of in Arterial blood 06:00:00 [place] Medi shanice by Pulse oximetry Branch Body temperature 2020-12-22 37.17 Alisha University of 03:53:00 [place] [facility] Body height 2020-12-22 160 cm University of 03:53:00 [place] [facility] Body weight 2020-12-22 74.844 kg Simultaneous University of 03:53:00 filing. User may [place] Medic al not have seen Branch previous data. BMI 2020-12-22 29.23 kg/m2 University of 03:53:00 [place] [facility] Respiratory rate 2020-12-22 18 /min University of 06:05:00 [place] [facility] Systolic blood 2020-12-22 138 mm[Hg] University of pressure 06:00:00 [place] [facility] Diastolic blood 2020-12-22 93 mm[Hg] University o f pressure 06:00:00 [place] [facility] Heart rate 2020-12-22 76 /min University of 06:00:00 [place] [facility] Oxygen saturation 2020-12-22 96 /min University of in Arterial blood 06:00:00 [place] Medi shanice by Pulse oximetry Branch Body temperature 2020-12-22 37.17 Alisha [facility] 03:53:00 [place] [facility] Body height 2020-12-22 160 cm University of 03:53:00 [place] [facility] Body weight 2020-12-22 74.844 kg Simultaneous University of 03:53:00 filing. User may [place] Medic al not have seen Branch previous data. BMI 2020-12-22 29.23 kg/m2 University of 03:53:00 [place] [facility] Systolic blood 2020-08-15 140 mm[Hg] University of pressure 11:50:00 [place] [facility] Diastolic blood 2020-08-15 84 mm[Hg] University o f pressure 11:50:00 [place] [facility] Heart rate 2020-08-15 108 /min University of 11:50:00 [place] [facility] Respiratory rate 2020-08-15 22 /min University of 11:50:00 [place] [facility] Oxygen saturation 2020-08-15 99 /min University of in Arterial blood 11:50:00 [place] Medi shanice by Pulse oximetry Branch Body temperature 2020-08-15 36.67 Alisha University of 09:32:00 [place] [facility] Body weight 2020-08-15 72.576 kg University of 09:32:00 [place] [facility] BMI 2020-08-15 28.34 kg/m2 University of 09:32:00 [place] [facility] Systolic blood 2020-08-15 140 mm[Hg] University of pressure 11:50:00 [place] [facility] Diastolic blood 2020-08-15 84 mm[Hg] University o f pressure 11:50:00 [facility] Branch Heart rate 2020-08-15 108 /min University of 11:50:00 [place] [facility] Respiratory rate 2020-08-15 22 /min University of 11:50:00 [facility] Branch Oxygen saturation 2020-08-15 99 /min University of in Arterial blood 11:50:00 [place] Medi shanice by Pulse oximetry Branch Body temperature 2020-08-15 36.67 Alisha University of 09:32:00 [place] [facility] Body weight 2020-08-15 72.576 kg University of 09:32:00 [place] [facility] BMI 2020-08-15 28.34 kg/m2 University of 09:32:00 [place] [facility] Respiratory rate 2020-04-14 18 /min University of 04:19:00 [place] [facility] Systolic blood 2020-04-14 114 mm[Hg] University of pressure 03:00:00 [place] [facility] Diastolic blood 2020-04-14 72 mm[Hg] University o f pressure 03:00:00 [place] [facility] Heart rate 2020-04-14 76 /min University of 03:00:00 [facility] Branch Oxygen saturation 2020-04-14 98 /min University of in Arterial blood 03:00:00 [facility] shanice by Pulse oximetry Branch Body temperature 2020-04-14 37.22 Alisha University of 00:34:00 [place] [facility] Body weight 2020-04-14 72.576 kg University of 00:34:00 [place] [facility] BMI 2020-04-14 28.34 kg/m2 University of 00:34:00 [place] [facility] Respiratory rate 2020-04-14 18 /min University of 04:19:00 [facility] Branch Systolic blood 2020-04-14 114 mm[Hg] University of pressure 03:00:00 [facility] Branch Diastolic blood 2020-04-14 72 mm[Hg] University o f pressure 03:00:00 [place] [facility] Heart rate 2020-04-14 76 /min University of 03:00:00 [facility] Branch Oxygen saturation 2020-04-14 98 /min University of in Arterial blood 03:00:00 [place] Medi shanice by Pulse oximetry Branch Body temperature 2020-04-14 37.22 Alisha University of 00:34:00 [place] [facility] Body weight 2020-04-14 72.576 kg University of 00:34:00 [place] [facility] BMI 2020-04-14 28.34 kg/m2 University of 00:34:00 [facility] Branch Systolic blood 2020-04-10 137 mm[Hg] University of pressure 23:20:00 [place] [facility] Branch Diastolic blood 2020-04-10 66 mm[Hg] University o f pressure 23:20:00 [place] [facility] Branch Heart rate 2020-04-10 84 /min University of 23:20:00 [facility] Branch Respiratory rate 2020-04-10 16 /min University of 23:20:00 [facility] Branch Oxygen saturation 2020-04-10 97 /min University of in Arterial blood 23:20:00 [facility] shanice by Pulse oximetry Branch Body temperature 2020-04-10 37 Alisha University of 20:37:00 [place] [facility] Body height 2020-04-10 160 cm University of 20:37:00 [place] [facility] Body weight 2020-04-10 72.576 kg University of 20:37:00 [place] [facility] BMI 2020-04-10 28.34 kg/m2 University of 20:37:00 [place] [facility] Systolic blood 2020-04-10 137 mm[Hg] University of pressure 23:20:00 [place] [facility] Diastolic blood 2020-04-10 66 mm[Hg] University o f pressure 23:20:00 [facility] Branch Heart rate 2020-04-10 84 /min University of 23:20:00 [facility] Branch Respiratory rate 2020-04-10 16 /min University of 23:20:00 [place] [facility] Oxygen saturation 2020-04-10 97 /min University of in Arterial blood 23:20:00 [facility] shanice by Pulse oximetry Branch Body temperature 2020-04-10 37 Alisha University of 20:37:00 [place] [facility] Body height 2020-04-10 160 cm University of 20:37:00 [place] [facility] Body weight 2020-04-10 72.576 kg University of 20:37:00 [place] [facility] BMI 2020-04-10 28.34 kg/m2 University of 20:37:00 [place] [facility] Systolic blood 2019-10-12 114 mm[Hg] University of pressure 06:06:00 [facility] Branch Diastolic blood 2019-10-12 67 mm[Hg] University o f pressure 06:06:00 [place] [facility] Oxygen saturation 2019-10-12 97 /min University of in Arterial blood 06:06:00 [place] Medi shanice by Pulse oximetry Branch Heart rate 2019-10-12 78 /min University of 06:05:00 [place] [facility] Body temperature 2019-10-12 37 Alisha [facility] 06:05:00 [place] [facility] Respiratory rate 2019-10-12 16 /min [facility] 06:05:00 [place] [facility] Body weight 2019-10-12 70.308 kg [facility] 03:49:00 [place] [facility] BMI 2019-10-12 27.46 kg/m2 [facility] 03:49:00 [place] [facility] Systolic blood 2019-10-12 114 mm[Hg] University of pressure 06:06:00 [place] [facility] Diastolic blood 2019-10-12 67 mm[Hg] University o f pressure 06:06:00 [place] [facility] Oxygen saturation 2019-10-12 97 /min [facility] Arterial blood 06:06:00 [facility] by Pulse oximetry [place] Heart rate 2019-10-12 78 /min [facility] 06:05:00 [place] [facility] Body temperature 2019-10-12 37 Alisha [facility] 06:05:00 [place] [facility] Respiratory rate 2019-10-12 16 /min [facility] 06:05:00 [place] [facility] Body weight 2019-10-12 70.308 kg [facility] 03:49:00 [place] [facility] BMI 2019-10-12 27.46 kg/m2 [facility] 03:49:00 [place] [facility] Systolic blood 2019-05-12 119 mm[Hg] University of pressure 15:58:00 [place] [facility] Diastolic blood 2019-05-12 78 mm[Hg] University o f pressure 15:58:00 [place] [facility] Heart rate 2019-05-12 75 /min [facility] 15:58:00 [place] [facility] Body temperature 2019-05-12 36.28 Alisha University of 15:58:00 [place] [facility] Respiratory rate 2019-05-12 18 /min University of 15:58:00 [place] [facility] Body height 2019-05-12 160 cm University of 15:58:00 [place] [facility] Body weight 2019-05-12 71.385 kg University of 15:58:00 [place] [facility] BMI 2019-05-12 27.88 kg/m2 University of 15:58:00 [place] [facility] Systolic blood 2019-05-12 119 mm[Hg] University of pressure 15:58:00 [place] [facility] Diastolic blood 2019-05-12 78 mm[Hg] University o f pressure 15:58:00 [place] [facility] Heart rate 2019-05-12 75 /min University of 15:58:00 [place] [facility] Body temperature 2019-05-12 36.28 Alisha University of 15:58:00 [place] [facility] Respiratory rate 2019-05-12 18 /min University of 15:58:00 [place] [facility] Body height 2019-05-12 160 cm University of 15:58:00 [place] [facility] Body weight 2019-05-12 71.385 kg University of 15:58:00 [place] [facility] BMI 2019-05-12 27.88 kg/m2 University of 15:58:00 [place] [facility] Systolic blood 2020-02-16 147 mm[Hg] University of pressure 14:30:00 [place] [facility] Diastolic blood 2020-02-16 103 mm[Hg] University o f pressure 14:30:00 [place] [facility] Body height 2020-02-16 67 [in_us] University of 14:30:00 [place] [facility] Weight 2020-02-16 162 [lb_av] University of 14:30:00 [place] [facility] Body mass index 2020-02-16 25.37 kg/m2 University o f (BMI) [Ratio] 14:30:00 [place] [facility] Body temperature 2020-02-16 98 [degF] Method: Temporal Univers it of 14:30:00 [place] [facility] Heart Rate 2020-02-16 102 /min University of 14:30:00 [place] [facility] Systolic blood 2020-02-14 113 mm[Hg] Location: LLE; [facility] 09:21:00 Position: Sitting [place] [facility] Diastolic blood 2020-02-14 72 mm[Hg] Location: LLE; [facility] 09:21:00 Position: Sitting [place] [facility] Body height 2020-02-14 67 [in_us] University of 09:21:00 [place] [facility] Weight 2020-02-14 161 [lb_av] University of 09:21:00 [place] [facility] Body mass index 2020-02-14 25.22 kg/m2 University o f (BMI) [Ratio] 09:21:00 [place] [facility] Body temperature 2020-02-14 95.3 [degF] University of 09:21:00 [place] [facility] Heart Rate 2020-02-14 87 /min University of 09:21:00 [place] [facility] Systolic blood 2020-01-31 108 mm[Hg] Location: RUE; [facility] 08:57:00 Position: Sitting [place] [facility] Diastolic blood 2020-01-31 76 mm[Hg] Location: [facility]; [facility] 08:57:00 Position: Sitting [place] [facility] Body height 2020-01-31 67 [in_us] University 08:57:00 [place] [facility] Weight 2020-01-31 159.375 [lb_av] University o f 08:57:00 [place] [facility] Body mass index 2020-01-31 24.96 kg/m2 University o f (BMI) [Ratio] 08:57:00 [place] [facility] Body temperature 2020-01-31 97.9 [degF] Method: Oral University 08:57:00 [place] [facility] Heart Rate 2020-01-31 78 /min [facility] 08:57:00 [place] [facility] BP Systolic 2019-06-28 130 mm[Hg] Location: [facility]; [facility] 16:14:00 Position: Sitting [place] [facility] BP Diastolic 2019-06-28 82 mm[Hg] Location: [facility]; [facility] 16:14:00 Position: Sitting [place] [facility] Height 2019-06-28 67 [in_us] University 16:14:00 [place] [facility] Weight 2019-06-28 156 [lb_av] University 16:14:00 [place] [facility] Body Mass Index 2019-06-28 24.43 kg/m2 University o f Calculated 16:14:00 [place] [facility] Heart Rate 2019-06-28 114 /min University of 16:14:00 [place] [facility] BP Systolic 2018-09-07 124 mm[Hg] University 16:12:00 [place] [facility] BP Diastolic 2018-09-07 88 mm[Hg] University 16:12:00 [place] [facility] Height 2018-09-07 67 [in_us] University of 16:12:00 [place] [facility] Weight 2018-09-07 159 [lb_av] University 16:12:00 [place] [facility] Body Mass Index 2018-09-07 24.9 kg/m2 University o f Calculated 16:12:00 [place] [facility] Heart Rate 2018-09-07 109 /min University 16:12:00 [place] [facility] Procedures Procedure Date / Time Performing Clinician Source Performed CONSENT/REFUSAL FOR 2021-11-17 01:19:24 [facility] Medical Branch CONSENT/REFUSAL FOR 2021-09-30 19:16:36 Doctor Unassigned, No [facility] Name Medical Branch NOTICE OF PRIVACY 2021-07-23 21:42:53 Doctor Unassigned, No [facility] PRACTICES Name Medical Branch CONSENT/REFUSAL FOR 2021-07-23 21:42:28 Doctor Unassigned, No [facility] Name Medical Branch CT ABDOMEN PELVIS W WO 2020-12-22 05:25:30 Miladys Medina [facility] CONTRAST Medical Branch LIPASE 2020-12-22 04:09:00 Miladys Medina [facility] COMP. METABOLIC PANEL 2020-12-22 04:09:00 Carol Mecesar [facility] ([id number]) Medical Branch PROTHROMBIN TIME / INR 2020-12-22 04:09:00 Miladys Medina [facility] CBC WITH DIFF 2020-12-22 04:08:00 [facility] 2020-12-22 04:08:00 Carol Mecesar [facility] NOTICE OF PRIVACY 2020-12-22 03:38:26 Doctor Unassigned, No [facility] Medical Branch CONSENT/REFUSAL FOR 2020-12-22 03:38:15 Doctor Unassigned, No [facility] Name Medical Branch CT ABDOMEN PELVIS W 2020-08-15 10:42:33 Donta Qiu [facility] CONTRAST Medical Branch COVID-19 (ID NOW RAPID 2020-08-15 09:46:00 Donta Qiu [facility] TESTING) Medical Branch LIPASE 2020-08-15 09:43:00 Donta Qiu [facility] HEPATIC FUNCTION PANEL 2020-08-15 09:43:00 Donta Qiu [facility] ([id number]) (ALB,T.PRO,BILI Medical Branch T,BU/BC,ALT,AST,ALK PHOS) BASIC METABOLIC PANEL 2020-08-15 09:43:00 Donta Qiu [facility] (NA, K, CL, CO2, Medical Branch GLUCOSE, BUN, CREATININE, CA) CBC WITH DIFF 2020-08-15 09:43:00 Donta Qiu [facility] PROTHROMBIN TIME / INR 2020-08-15 09:43:00 [facility] Branch ACTIVATED PARTIAL 2020-08-15 09:43:00 [facility] Medical Branch URINALYSIS 2020-08-15 09:43:00 Qiu [facility] NOTICE OF PRIVACY 2020-08-15 09:26:35 Doctor Unassigned, No [facility] [place] PRACT[facility] Name Medical Branch CONSENT/REFUSAL FOR 2020-08-15 09:24:44 Doctor Unassigned, No [facility] [place] DI[facility]NOSIS AND TREATMENT Name Medical Branch CT ABDOMEN PELVIS W 2020-04-14 02:26:48 Awilda Pérez [facility] CONTRAST Medical Branch BASIC METABOLIC PANEL 2020-04-14 01:22:00 Awilda P[facility]rez [facility] (NA, K, CL, CO2, Medical Branch GLUCOSE, BUN, CREATININE, CA) CBC WITH DIFF 2020-04-14 01:22:00 Awilda Pérez [facility] Medical Branch NOTICE OF PRIVACY 2020-04-14 00:20:23 Doctor Unassigned, No [facility] [place] PRACTICES Name Medical Branch CONSENT/REFUSAL FOR 2020-04-14 00:20:11 Doctor Unassigned, No [facility] [place] DIAGNOSIS AND TREATMENT Name Medical Branch CT ABDOMEN PELVIS W 2020-04-10 22:55:34 Huy Meehan [facility] CONTRAST Medical Branch COMP. METABOLIC PANEL 2020-04-10 21:27:00 Huy Meehan [facility] ([id number]) Medical Branch CBC WITH DIFF 2020-04-10 21:27:00 Meehan, Huy [facility] Medical Branch NOTICE OF PRIVACY 2020-04-10 20:34:36 Doctor Unassigned, No [facility] [place] PRACTICES Name Medical Branch CONSENT/REFUSAL FOR 2020-04-10 20:29:45 Doctor Unassigned, No [facility] [place] DIAGNOSIS AND TREATMENT Name Medical Branch [QL] CBC (INCLUDES 2020-02-16 00:00:00 [facility] DIFF/PLT) Physicians EMB 2020-02-14 00:00:00 [facility] Physicians . [facility] - Affirm VPIII 2020-02-14 00:00:00 [facility] (BV Panel) Physicians . [facility] - GC/Chlamydia 2020-02-14 00:00:00 [facility] Physicians [QL] CBC (INCLUDES 2020-02-14 00:00:00 [facility] DIFF/PLT) Physicians [QL] AMYLASE 2020-02-14 00:00:00 [facility] Physicians [QL] LIPASE 2020-02-14 00:00:00 [facility] Physicians . [facility] - Affirm VPIII 2020-01-31 00:00:00 [facility] (BV Panel) Physicians . [facility] - GC/Chlamydia 2020-01-31 00:00:00 [facility] Physicians [QL] CBC (INCLUDES 2020-01-31 00:00:00 [facility] DIFF/PLT) Physicians XR NECK SOFT TISSUE 2019-10-12 05:59:03 Donta Qiu [facility] ADC,CLC OR LCC ONLY - 2019-10-12 04:07:00 Donta Qiu [facility] INFLUENZA A & B DIRECT Medical B ranch ANTIGEN RAPID STREP SCREEN FOR 2019-10-12 04:07:00 Donta Qiu [facility] GROUP A [facility] Branch CONSENT/REFUSAL FOR 2019-10-12 03:38:20 Doctor Unassigned, No [facility]REATMENT Name Medical Branch [QL] CULTURE, URINE, 2019-06-28 00:00:00 [facility] ROUTINE Physicians . [facility] - PAP w/reflex 2019-06-28 00:00:00 [facility] HPV Physicians US Pelvic with 2019-06-28 00:00:00 [facility] Transvaginal and Pelvic Physicia ns Doppler [id number] POCT TEST 2019-05-12 16:02:00 Perri Pérez [facility] History of [facility] surgery Physicians History of [facility] section low transverse Physician s Encounters Start End Encounter Admission Attending Care Care Encounter Source Date/Time Date/Time Type Type Clinicians Facility Department ID 2021-07-06 Emergency [facility] [id number] Univers 13:36[facility]32 [facility] 2021-07-05 Emergency [facility] [id number] Univers 10:22:47 [facility] 2021-07-04 Emergency [facility] [id number] Univers 11:22:30 ity [facility] 2021-07-04 Emergency [facility] [id number] Univers 10:48:55 [facility] 2021-01-09 Inpatient HCACL MALISSA [id number] [facility] 10:52:00 [id number] [facility] 2020-12-27 Inpatient [facility] MALISSA [id number] [facility] 20:29:00 [id number] [facility] 2020-12-26 Inpatient EL Luz, [facility] ENDO [id number] [facility] 10:00:00 Rik [id number] [facility] 2020-12-25 Inpatient Escobar, [facility] ENDO [id number] [facility] 10:00:00 Rik [id number] [facility] 2020-12-22 Inpatient HCAMC MALISSA [id number] [facility] 21:46:00 [id number] [facility] 2020-08-23 Inpatient [facility] MALISSA [id number] [facility] 09:10:00 [id number] [facility] 2020-08-15 Inpatient HCAWH MALISSA [id number] H[facility] 14:57:00 [id number] [facility] 2020-08-05 Inpatient HCACL MALISSA [id number] HCA 20:55:00 [id number] [facility] 2020-02-20 Outpatient [facility]IRYAM, [facility] [id number] M [facility] 10:04:01 LISHA 2021-11-16 2021-11-16 Emergency [facility] [id number] Univers 20:28:00 21:58:00 [facility] 2021-11-16 2021-11-16 Emergency [facility] [id number] Univers 20:28:00 21:58:00 Miladys [facility]ERR[facility].13.10 [facility] 4.2.7.2.686 [facility] [id number] [facility] 084 Branch 2021-10-02 2021-10-02 Emergency EM Nwandreae, HCACL MALISSA [id number] H[facility] 16:59:00 20:32:00 Corypriyankarj [id number] Cl ear [facility] 2021-10-02 2021-10-02 Emergency EM EDDOC, HCACL HCACL [id number] [facility] 16:59:00 20:32:00 GENERIC 76 [facility] 2021-09-30 2021-09-30 Emergency X [facility] ERT [id number] Univers 13:31:00 16:34:00 AWILDA itmisty [facility] 2021-09-30 2021-09-30 [facility] 1.2.840.114 [id number] Univers 13:31:00 16:34:00 Awilda GUERRERO [id number] ity [facility] 4.2.7.2.686 [facility] [id number] [address] 2021-07-23 2021-07-23 Emergency X [facility] ERT [id number] Univers 16:14:00 17:06:00 ity [facility] 2021-07-23 2021-07-23 Emergency [facility] [id number] Univers 16:14:00 17:06:00 YOLANDA 350.1.13.10 i ty [facility] 4.2.7.2.686 [facility] [id number] [address] 2021-07-23 2021-07-23 Emergency EM Sanket, SALENA AERS [id number] [facility] 13:58:00 14:24:00 Burak [id number] [facility] 2021-07-23 2021-07-23 Emergency EM Sanket, HCACL HCACL [id number] [facility] 13:58:00 14:24:00 Burak 69 [facility] 2021-07-10 2021-07-10 Outpatient [facility] [id number] [facility] 00:00:00 00:00:00 JESSI [address] 2021-06-13 2021-06-13 Outpatient [facility] [id number] [facility] 00:00:00 00:00:[address]ESS[address] 2021-04-17 2021-04-17 Emergency E LOLITA [facility]ASSERMAN [facility] 7515 16:40:00 19:42:00 [facility] 2021-03-30 2021-03-30 Emergency E DINORAH KAYLA MED 7514 [facility] 00:46:00 06:26:00 SABHA 2021-01-15 2021-01-15 Outpatient SALENA Escobar OUTD [id number] [facility] 08:00:00 08:00:00 Rik [id number] [facility] 2021-01-09 2021-01-09 Emergency E LOLITA WASSERMAN [facility] MED 7513 12:29:00 16:41:00 [facility] 2020-12-26 2020-12-26 Emergency [facility] [id number] [place] [address] 00:00:00 00:00:[address] 2020-12-21 2020-12-22 Emergency [facility] [id number] [facility] 22:42:00 02:02:00 Miladys Guerrero 350.1.13.10 ity of [place] 4.2.7.2.686 [facility] [id number] [facility] 084 Branch 2020-12-21 2020-12-22 Emergency [facility] [id number] 22:42:00 02:02:00 Miladys Guerrero 350.1.13.10 [place] 4.2.7.2.686 Council [id number] [facility] 2020-12-21 2020-12-21 Orders Doctor SUDHA 1.2.840.114 [id number] Univers 00:00:00 00:00:00 Only Unassigned, ALEM 350.1.13.10 ity of [place] [facility] 4.2.7.2.686 [facility] [id number] [facility] 009 Branch 2020-12-21 2020-12-21 Orders Doctor SUDHA 1.2.840.114 [id number] 00:00:00 00:00:00 Only Unassigned, ALEM 350.1.13.10 [place] [facility] 4.2.7.2.686 [id number] 009 2020-08-15 2020-08-15 Emergency [facility] 1.2.478.195 [id number] [facility] 03:26:00 06:17:00 Donta Guerrero 350.1.13.10 i ty of [place] 4.2.7.2.686 [facility] [id number] [address] 2020-08-15 2020-08-15 Emergency Qiu, [facility] 1.2.617.320 [id number] 03:26:00 06:17:00 Donta Guerrero 350.1.13.10 [place] 4.2.7.2.686 Council [id number] [facility] 2020-04-13 2020-04-13 Emergency [facility] 1.2.840.114 [id number] [facility] 19:38:00 23:40:00 Awilda Guerrero 350.1.13.10 ity of [place] 4.2.7.[address] [place] [id number] 2020-04-13 2020-04-13 Emergency [facility] 1.2.840.114 [id number] 19:38:00 23:40:00 Awilda Guerrero 350.1.13.[address] [place] [address] [place] [address] [id number] [facility] 2020-04-13 2020-04-13 Orders Doctor HALEY 1.2.840.114 [id number] Univers 00:00:00 00:00:00 Only Unassigned, ALEM 350.1.13.10 ity of [place] [facility] 4.2.7.2.686 [facility] [id number] [address] 2020-04-13 2020-04-13 Orders Doctor HALEY 1.2.840.114 [id number] 00:00:00 00:00:00 Only Unassigned, ALEM 350.1.13.10 [place] [facility] 4.2.7.2.686 [id number] 009 2020-04-10 2020-04-10 Emergency [facility] [id number] [facility] 15:39:00 19:05:00 Huy Guerrero 350.1.13.10 i ty of [place] 4.2.7.2.[address] [place] [id number] 2020-04-10 2020-04-10 Emergency , [facility] 1.2.969.183 [id number] 15:39:00 19:05:00 Huy Guerrero 350.1.13.10 [place] 4.2.7.2.686 Council [id number] 084 2020-04-10 2020-04-10 Orders Doctor SUDHA 1.2.840.114 [id number] Univers 00:00:00 00:00:00 Only Unassigned, ALEM 350.1.13.10 ity of [place] [facility] 4.2.7.2.686 [facility] as [id number] [facility] 009 [place] 2020-04-10 2020-04-10 Orders Doctor SUDHA 1.2.840.114 [id number] 00:00:00 00:00:00 Only Unassigned, ALEM 350.1.13.10 [place] [facility] 4.2.7.2.686 [id number] 009 2020-04-08 2020-04-08 Outpatient Anton BALDWIN JR, [facility] [id number] Univers 16:30:00 16:30:00 CYNTHIA [id number] ity [facility] 2020-03-11 2020-03-11 Appointpeng FOSTER [facility] Obstetrics [id number] Univers 10:00:00 10:00:00 t; Gayatri HUSAIN and durga [facility], Gynecology Elma HUSAIN M.D. Continuity [facility] Clinic ans 2020-02-28 2020-02-28 [facility] KRISTIN [facility] [id number] Univers 08:30:00 08:30:00 t; Gayatri HUSAIN [place], [place] Gayatri HUSAIN Physi ci ans 2020-02-23 2020-02-23 Appointpeng FOSTER [facility] [id number] Univers 11:00:00 11:00:00 t; Gayatri HUSAIN [place], [place] Gayatri HUSAIN Physi ci ans 2020-02-16 2020-02-16 Appointpeng MARTE [facility] Obstetrics [id number] Univers 14:15:00 14:15:00 t; JOSEFINA and Gamaliel M.[place]. [place] JOSEFINA, Continuity Physi ci [facility] ans 2020-02-15 2020-02-15 Emergency E AMELIE, MHSE MHSE 7510 MH 20:06:00 21:19:[address] [facility]osp[facility] l 2020-02-14 2020-02-14 Appointmen SHILOH [facility] Obstetrics [id number] Univers 09:00:00 09:00:00 t; SAMIR MATAMOROS, and Jacqui M.D. Gynecology Elma avila M.D. Continuity Physi ci Clinic ans 2020-01-31 2020-01-31 Appointmen TANJA [facility] Obstetrics [id number] Univers 08:30:00 08:30:00 t; JUNE and Mendoza D.O. Gynecology Elma WATKINS, Continuity Physi ci D.O. Clinic [facility] 2019-12-20 2019-12-20 Appointmen ANA PAULA [facility] Orthopedics [id number] Univers 09:30:00 09:30:00 t; mayo CID [facility] Jillian M.D. [facility] Physici Gayatri [facility] 2019-12-20 2019-12-20 Outpatient Raju_P [facility] [id number] [place] 04:51:00 04:51:00 0415 Medical Group 2019-12-18 2019-12-18 Emergency E TABBY, MHSE MHSE 7500 MH 20:54:00 21:40:[address] [facility] 2019-10-11 2019-10-12 Emergency X [facility] ERT [id number] Univers 21:52:36 00:17:00 DONTA calixto [facility] 2019-10-11 2019-10-12 Emergency [facility] 1.2.753.856 [id number] Univers 21:52:36 00:17:00 Donta Guerrero 350.1.13.10 i [place] 4.2.7.2.686 [facility] [id number] [place] [address] Branch 2019-10-11 2019-10-12 Emergency [facility] 1.2.175.077 [id number] 21:52:36 00:17:00 Donta Guerrero 350.1.13.10 [place] 4.2.7.2.686 Council [id number] 084 2019-10-11 2019-10-11 Orders Doctor SUDHA 1.2.840.114 [id number] Univers 00:00:00 00:00:00 Only Unassigned, ALEM 350.1.13.10 ity of [place] [facility] 4.2.7.2.686 Zay as [id number] [address] 2019-10-11 2019-10-11 Orders Doctor SUDHA 1.2.840.114 [id number] 00:00:00 00:00:00 Only Unassigned, ALEM 350.1.13.10 [place] [address]686 [id number] [facility] 2019-06-28 2019-06-28 Appointmen MARIBEL GRUBBS Obstetrics [id number] [facility] 16:00:00 16:00:00 t; Gayatri CAVANAUGH and it y of [place] GRUBBS Continuity Physi ci M.D. Clinic ans 2019-05-12 2019-05-12 Nurse Visit, [facility] Nurse [facility] 1.2 .840.114 [id number] [facility] 10:44:42 12:05:57 Visit Perri Pérez END POLISHER 350.1.13.[address] [facility] 4.2.7.2.686 Zay as MATERNAL [id number] Med ical & CHILD [address] [place] [address] 2019-05-12 2019-05-12 Nurse Visit, [facility] 1.2.840.114 [id number] 10:44:42 12:05:57 [facility] 350.1.13.[address] [facility] 4.2.7.2.686 MATERNAL [id number] & CHILD [address] [place] [address] 2019-05-10 2019-05-10 Telephone GEORGIE Pérez 1.2.840.114 [id number] [facility] 00:00:00 00:00:00 Perri Olivier END POLISHER 350.1.13.[address] [facility] 4.2.7.2.686 Zay as MATERNAL [phone] Med ical & CHILD [address] [place] [address] 2019-05-10 2019-05-10 Telephone [facility] 1.2.840.114 [id number] 00:00:00 00:00:00 Perri Olivier END POLISHER 350.1.13.10 [facility] 4.2.7.2.686 MATERNAL [id number] & CHILD [address] [facility] 2019-04-03 2019-04-03 Patient ROBIN Mcfadden 1.2.840.114 [id number] Univers 00:00:00 00:00:00 Secure Msg Ivet Y HEALTH 350.1.13.10 ity of CLINICS 4.2.7.2.686 [place] [id number] [facility] 113 Branch 2019-04-03 2019-04-03 Patient ROBIN Mcfadden 1.2.840.114 [id number] 00:00:00 00:00:00 Secure Msg Ivet Y HEALTH 350.1.13.10 [facility] 4.2.7.2.686 [id number] [facility] 2019-03-07 2019-03-07 Patient Doctor SUDHA 1.2.840.114 [id number] Univers 00:00:00 00:00:00 Secure Msg Unassigned, ALEM 350.1.13.10 ity of [place] [facility] 4.2.7.2.686 Zay as [id number] [place] [address] Branch 2019-03-07 2019-03-07 Patient Doctor SUDHA 1.2.840.114 [id number] 00:00:00 00:00:00 Secure Msg Unassigned, ALEM 350.1.13.10 [place] [facility] 4.2.7.2.686 [id number] [facility] 2019-02-27 2019-02-27 Patient Doctor SUDHA 1.2.840.114 [id number] Univers 00:00:00 00:00:00 Secure Msg Unassigned, ALEM 350.1.13.10 ity of [place] [facility] 4.2.7.2.686 Zay as [id number] [address] 2019-02-27 2019-02-27 Patient Doctor SUDHA [place].2.840.114 [id number] 00:00:00 00:00:00 Secure Msg Unassigned, ALEM 350.1.13.10 [place] [facility] 4.2.7.2.686 [id number] [id number] 2018-10-13 2018-10-13 Appointpeng RAMOS [facility] [id number] Univers 14:30:00 14:30:00 t; Woo FINK M.D. [place] JORDAN, Physici M.D. ans 2018-09-07 2018-09-21 [facility] [id number] 15:00:00 10:19:03 2018-09-07 2018-09-07 AppointMARIBEL Rae Rig Supervisor [id number] [facility] 15:00:00 15:00:00 t; BONITA KRISHNA ity of [place], M.D. [place] M.D. Physicla nena ans Results Test Description Test Time Test Comments Results Result Comments Source UR HCG QUAL 2021-10-02 18:52:00 Test Item Value Reference Range Interpretation Comme nts UR HCG QUAL (test code = HCGQLU) NEGATIVE NEGATIVE SURGICAL [id number] 08:42:00 Test Item Value Reference Range Interpretation Comments SURGICAL SPECIMENS (test code = SURG) --------RUN DATE: 12/31/20 [facility] - LAB PAGE 1 RUN TIME: 0842 Specimen Inquiry RUN USER: INTERFACE --------PATIENT: ROSITA JEAN BAPTISTE SHANNON LOC: [facility] U #: [id number] AGE/SX: 30/F ROOM: U[facility]SSES RE12/26/20REG DR: Olegario Srivastava MD : 92 BED: 02 DIS: 12/26/20 STATUS: DIS Keira TLOC: -------- SPEC #: [id number] RECD: 12/26/20 STATUS: SOUJoesph REQ #: [id number] LAURYN: 12/26/[address]: Olegario Srivastava MD ENTERED: 12/26/20 SP TYPE: SURG OTHR DR: Rik Escobar MD, Raju-Madhav DO Way, Antonia L MDORDERED: PATHGM4/3, PATH SPEC, H E STAIN/3 HISTOLOGY: TISSUE ID BLK PCS VIKA LEV / PROCEDURE DISPOSITION ____ ___ ___ ___ ___ ANTRUM BIOPSY A 1 3 GASTRIC BIOPSY B 1 3 GASTRIC BIOPSY C 1 3 TISSUES: A. ANTRUM BIOPSY - Gastric Antrum Bx B. GASTRIC BIOPSY - Gastric Body Bx C. GASTRIC BIOPSY - Gastric Fundus Bx ADDITIONAL TESTS ASR DISCLAIMER FOR IMMUNOHISTOCHEMISTRY: This test was developed and its performance characteristics determined by the [facility]. It has not been cleared or approved by the US Food and Drug Administration. The FDA has determined that such clearance or approval is not necessary. The test is used for clinical purposes. It should not be regarded as investigational or for research. [facility] is certified under CLIA-88 (Clinical Laboratory Improvement Amendment of 1988) as qualified to perform high-complexity clinical laboratory testing. All controls show appropriate reactivity. CLINICAL HISTORY Hematemesis. FINAL DIAGNOSIS A. STOMACH, ANTRUM, BIOPSY: - ANTRAL MUCOSA WITH REACTIVE GASTROPATHY - NEGATIVE FOR HELICOBACTER PYLORI BY IMMUNOHISTOCHEMISTRY - NO INTESTINAL METAPLASIA, DYSPLASIA, OR MALIGNANCY IS IDENTIFIED B. STOMACH, BODY, BIOPSY: - OXYNTIC MUCOSA WITH MILD CHRONIC INFLAMMATION - NEGATIVE FOR HELICOBACTER PYLORI BY IMMUNOHISTOCHEMISTRY - NO INTESTINAL METAPLASIA, DYSPLASIA, OR MALIGNANCY IS IDENTIFIED CONTINUED ON NEXT PAGE --------RUN DATE: 12/31/20 [facility] - LAB PAGE 2 RUN TIME: 841 Specimen Inquiry RUN USER: INTERFACE --------SPEC #: [id number] PATIENT: ROSITA JEAN BAPTISTE #[id number] (Continued) FINAL DIAGNOSIS (Continued) C. STOMACH, FUNDUS, BIOPSY: - OXYNTIC MUCOSA WITH REACTIVE GASTROPATHY - NEGATIVE FOR HELICOBACTER PYLORI BY IMMUNOHISTOCHEMISTRY - NO INTESTINAL METAPLASIA, DYSPLASIA, OR MALIGNANCY IS IDENTIFIED CPT: 46731 x3, 65081 x3 GROSS DESCRIPTION Received are three containers of formalin labeled with the patient's name, medical record number, and specimen source. A. Received labeled "gastric antrum biopsy" is a 0.6 cm in greatest dimension [place] soft tissue biopsy which is submitted in toto in cassette A. B. Received labeled "gastric body biopsy" are three [place]roe soft tissue biopsies varying from 0.1 cm up to 0.7 cm in greatest dimension; they are submitted in toto in cassette B. C. Received labeled "gastric fundus biopsy" are three [place]roe soft tissue biopsies varying from 0.2 to 0.4 cm in greatest dimension; they are submitted in toto in cassette C. /ph MICROSCOPIC DESCRIPTION Performed. Signed SIGNATURE ON FILE Eladia Montelongo MD 12/31/20 0842 -------- END OF REPORT COVID Asymptomatic IH [id number] 10:52:00 Test Item Value Reference Interpretation Comments [...] i ts performancechar acteristics were determined by [facility]. Thi s test has notbeen FDA ashley [...] setting? Unknown? UnknownAge at collection: YBASIC METABOLIC [id number] 21:38:00 Test Item Value Reference Range Interpretation [...] CA) Reference Range Oct 2020 LIVER FUNCTION [id number] 21:38:00 Test Item Value Reference Range Interpretation [...] code = ALKP) Reference Range Oct 2020 [id number] 21:38:00 Test Item Value Reference Range Interpretation Comments LIPASE (test code = 32 U/L 12-53 N Please n ote: New LIP) Reference Range Oct 2020 CBC W/AUTO [id number] 21:24:00 Test Item Value Reference Range Interpretation [...] BA#) 0.05 x10 3/uL 0.0-0.20 N PROTHROMBIN [id number] 21:22:00 Test Item Value Reference Range Interpretation [...] 2.5-3.5recurren t systemic emboli sm. BASIC METABOLIC [id number] 23:38:00 Test Item Value Reference Range Interpretation [...] CA) Reference Range Oct 2020 LIVER FUNCTION [id number] 23:38:00 Test Item Value Reference Range Interpretation [...] code = ALKP) Reference Range Oct 2020 [id number] 23:38:00 Test Item Value Reference Range Interpretation Comments LIPASE (test code = 37 U/L 12-53 N Please n ote: New LIP) Reference Range Oct 2020 UA RFLX MICR CULT IF [id number] 23:10:00 Test Item Value Reference Range Interpretation [...] Indication for culture: RiskForSepsis-no oth srcUR HCG [id number] 23:10:00 Test Item Value Reference Range Interpretation Comments UR HCG QUAL (test code = HCGQLU) NEGATIVE NEGATIVE Indication for culture: RiskForSepsis-no oth srcUA RFLX MICR CULT IF [id number] 23:08:00 Test Item Value Reference Range Interpretation [...] Indication for culture: RiskForSepsis-no oth srcUR HCG [id number] 23:08:00 Test Item Value Reference Range Interpretation Comments UR HCG QUAL (test code = HCGQLU) NEGATIVE Indication for culture: RiskForSepsis-no oth srcCBC W/AUTO [id number] 23:04:00 Test Item Value Reference Range Interpretation [...] 0.0-0.[address] ABDOMEN PELVIS W WO [id number] 06:21:55Impression: 1. No acute abnormalities evident. Specifically, no CT evidence of activegastrointestinal hemorrhage.2. Small volume of free pelvic fluid, likely physiologic. AFC: 70850 RL: 460 End of Report Ordering Physician: [...] likely physiologic.AFC: 9905 3RL: 460End of Report [facility] 04:41:44 Test Item Value Reference Range Interpretation Comments APPEARANCE (test code = Clear Clear 3552950598) COLOR (test code = Yellow Yellow 8616961177) PH (test code = 4.8-8.0 2825195056) SP GRAVITY (test code = 1.003-1.030 2560649020) GLU U QUAL (test code = Normal Normal 3150232641) BLOOD (test code = Negative Negative 2736300978) KETONES (test code = Negative Negative 9757638125) PROTEIN (test code = Negative Negative 2887-8) UROBILIN (test code = 2.0 mg/dL Normal A 1308841915) BILIRUBIN (test code = Negative Negative 7833801100) NITRITE (test code = Negative Negative 3211078435) LEUK PENNY (test code = Negative Negative 1509871611) RBC/HPF (test code = See_Comment H [Autom ated message] 3003973483) The system [employer] generated this result transmit uche reference range : 0 - 3 HPF. The refe rence range was not u sed to interpret th is result as normal/abnormal . WBC/HPF (test code = See_Comment [Autom ated message] 9421678368) The system [employer] generated this result transmit uche reference range : 0 - 5 HPF. The refe rence range was not u sed to interpret th is result as normal/abnormal . BACTERIA (test code = Few Negative A 6228014917) MUCOUS (test code = Slight Negative LPF A 6907321273) SQ EPITH (test code = HPF 1220491170) Lab Interpretation (test Abnormal code = 49251-3) [facility]. METABOLIC PANEL (44623)2020-12-22 04:41:14 Test Item Value Reference Range Interpretation Comments NA (test code = 140 mmol/L 135-145 4558799966) K (test code = 3.9 mmol/L 3.5-5.0 0936495193) CL (test code = 103 mmol/L 98-108 0379463543) CO2 TOTAL (test code = 26 mmol/L 23-31 3778283141) AGAP (test code = 2-16 9954775200) BUN (test code = 13 mg/dL 7-23 1366962527) GLUCOSE (test code = 104 mg/dL 70-110 5377507549) CREATININE (test code = 0.68 mg/dL 0.50-1.04 7354839802) TOTAL BILI (test code = 0.6 mg/dL 0.1-1.1 2024481400) CALCIUM (test code = 9.6 mg/dL 8.6-10.6 3591338721) T PROTEIN (test code = 8.0 g/dL 6.3-8.2 0265113347) ALBUMIN (test code = 4.9 g/dL 3.5-5.0 9393207907) ALK PHOS (test code = 83 U/L 34-122 5590690885) ALTv (test code = 16 U/L 5-35 1742-6) AST(SGOT) (test code = 44 U/L 13-40 H 6296741703) eGFR (test code = mL/min/1.73m2 4854574431) ANGI (test code = ANGI) Association of [...] tests). Lab Interpretation Abnormal (test code = 90670-7) [facility]IP[facility]2021-[facility] 04:41:14 Test Item Value Reference Range Interpretation Comments LIPASE (test code = 0870749413) 119 U/L 0-220 Lab Interpretation (test code = Normal 07558-4) [facility] CenterPROTHROMBIN TIME / [id number] 04:32:17 Test Item Value Reference Range Interpretation Comments PROTIME PATIENT (test See_Comment [Auto mated message] code = 5964-2) The system [employer] generated this result transmitted ref erence range: 12.0 - 1 4.7 Seconds. The re ference range was not u sed to interpret this result as normal/abnor mal. INR (test code = 6301-6) Nor mal INR <1.1; Warfarin Therap eutic range 2.0 to 3. 0 or 2.5 to 3.5, dep ending upon the indica tions. Lab Interpretation (test Normal code = 17534-6) [facility] WITH [id number] 04:23:34 Test Item Value Reference Range Interpretation [...] RDW-SD (test code = 40.8 fL 39.0-49.9 84345-2) RDW-CV (test code = 12.5 % 12.0-15.5 788-0) PLT (test code = See_Comment H [Automated 777-3) message] The sy stem which generated this result transmitted reference range : 166 - 358 10*3/ ?L. The reference r dagoberto was not used to interpret this result as normal/abnormal . MPV (test code = 9.1 fL 9.5-12.9 L 12863-8) NRBC/100 WBC (test See_Comment [Automat ed code = 0384816194) message] The system which generated this result transmitted reference range : 0.0 - 10.0 /100 WBCs. The refer ence range was not u sed to interpret th is result as normal/abnormal . NRBC x10^3 (test code <0.01 See_Comment [Auto mated = 2935247304) message] The s ystem which generated this result transmitted reference range : 10*3/?L. The reference range was not used to interpret this result as normal/abnormal . GRAN MAT (NEUT) % 63.7 % (test code = 770-8) IMM GRAN % (test code 0.60 % = 7477759011) LYMPH % (test code = 27.9 % 736-9) MONO % (test code = 6.5 % 5905-5) EOS % (test code = 0.6 % 713-8) BASO % (test code = 0.7 % 706-2) GRAN MAT x10^3(ANC) 7.24 10*3/uL 1.88-7.09 H (test code = 1636119106) IMM GRAN x10^3 (test 0.07 10*3/uL 0.00-0.06 H code = 0733532130) LYMPH x10^3 (test code 3.18 10*3/uL 1.32-3.29 = 731-0) MONO x10^3 (test code 0.74 10*3/uL 0.33-0.92 = 742-7) EOS x10^3 (test code = 0.07 10*3/uL 0.03-0.39 711-2) BASO x10^3 (test code 0.08 10*3/uL 0.01-0.07 H = 704-7) Lab Interpretation Abnormal (test code = 10296-1) [facility] CenterSURGICAL [id number] 12:44:00 Test Item Value Reference Range Interpretation Comments SURGICAL SPECIMENS (test code = SURG) RUN DATE: 08/27/20 [facility] - LAB PAGE 1 RUN TIME: 1244 Specimen Inquiry RUN USER: INTERFACE PATIENT: ROSITA JEAN BAPTISTE LOC: KaiaS POD B U #: [id number] AGE/SX: 30/F ROOM: [facility] RE08/23/20REG DR: Olegario Srivastava MD : [birth year] BED: 1 DIS: 08/25/20 STATUS: DIS Keira TLOC: SPEC #: [id number] RECD: 08/23/20 STATUS: MIKI MAI #: [id number] LAURYN: 08/23/[address] [facility] [address]: Olegario Srivastava MD ENTERED: 08/23/20 [...] METAPLASIA -NO HELICOBACTER PYLORI BY IMMUNOHISTOCHEMICAL STUDY 82207, 26433 GROSS DESCRIPTION Received in formalin labeled with the patient's name and "gastric antrum" are three tissue fragments of 0.1 to 0.2 cm, submitted in one cassette. CM/ta. Signed SIGNATURE ON FILE Wyane Andrews 08/27/20 1244 END OF REPORT UA RFLX MICR CULT IF [id number] 13:25:00 Test Item Value Reference Range Interpretation [...] Description: CLEAN CATCHUA RFLX MICR CULT IF [id number] 13:24:00 Test Item Value Reference Range Interpretation [...] Suprapubic PainSpecimen Description: CLEAN CATCH BASIC METABOLIC [id number] 09:57:00 Test Item Value Reference Range Interpretation [...] mg/dL 8.8-10.2 N = CA) CBC W/AUTO [id number] 06:53:00 Test Item Value Reference Range Interpretation [...] x10 3/uL 0.0-0.20 N Novel Coronavirus 2018 [id number] 06:10:00 Test Item Value Reference Range Interpretation Comments Novel Coronavirus Not Detected Not Detected Testing wa s performed 2019 Inhouse (test using the [employer] code = COVNONPUI) SARS-CoV-2 assay.This nucleic acid amplification t est was developed and itsperformance characteristics determined by [facility]. Nucleic acid amplification t ests include [...] melody gnosis of COVID-19 infect ion under divvfmh981(b)(1 ) of the Act, 21 U.S.C. 360bbb-3(b) [...] resul t in this assay.Performed At: [facility] [address] [id number] alessandra Wei MD Ph:[phone] BASIC METABOLIC [id number] 04:20:00 Test Item Value Reference Range Interpretation [...] code 9.1 mg/dL 8.8-10.2 N = CA) [id number] 04:20:00 Test Item Value Reference Range Interpretation Comments MAGNESIUM (test code = MAG) 1.9

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
[2021-11-17 19:20] VITALS: BP 147/94; TEMP 98.8; O2SAT 100
== END 2021-11-17 18:54 | disposition left against medical advice (07) ==
LOC: ER 17:40
DX: Z53.21 Procedure and treatment not carried out due to patient leaving prior to being seen by health care provider (principal)
CPT/HCPCS: 99281

== ENCOUNTER 2022-06-28 22:50 | Emergency (ER) | payer OTHER ==
--- OUTSIDE RECORDS SUMMARY | 2022-06-28 22:58 | XMS REPORT | Continuity of Care Document ---
:1990 Author Organization [facility] t Address [address] [place] [address] Support Name Relationship Address Phone ANITA CLEVELAND SP [address] [place] [phone] ANITA CLEVELAND [address] [facility] [place] [phone] VIVIANA CLEVELAND Unavailable [address] [facility] [address] [facility] [phone] [place] [phone] VIVIANA C[place]AND Significant [address] [facility] Unavaila ble [place] [id number] Ray Marie Father [address] [place] [phone] Viviana Thompson Significant Other [address] [facility] [address] [place] [id number] Zay Yanes Significant Other [address] [phone] [place] [phone] ANGELLA CLEVELAND [BF] Unavailable [address] [facility] [phone] [place] [phone] ANGELLA CLEVELAND LP [address] [facility] [phone] [place] [phone] NOONE, ELSE Unavailable [address] [facility] [phone] [place] [phone] NONE, PERSON OT [address] [place] [phone] ROSITA MARIE Unavailable . [phone] [place] [phone] RAY MARIE Unavailable [address] [phone] [place] [address] NONE, TOHER Unavailable [address] [facility] [phone] [place] [phone] Care Team Providers Name Role Phone Yoseph Borges MD Primary Care Physician Rik Escobar Attending Clinician Unavailable LISHA FOSTER Attending Clinician Unavailable Christine Mcdonnell MD Attending Clinician Vivian HUYNH, Yoseph Mendez Attending Clinician [phone] Michi Kelley MD Attending Clinician Vivian HUYNH, Yoseph Mendez Attending Clinician [phone] Doctor Unassigned, [place] Attending Clinician Unavailable DONTA QIU Attending Clinician Unavailable Donta Qiu MD Attending Clinician MILADYS MEDINA Attending Clinician Unavailable Miladys Medina MD Attending Clinician Hung Piña Attending Clinician Unavailable EDDOC, GENERIC FOR ED Attending Clinician Unavailable AWILDA PÉREZ Attending Clinician Unavailable Awilda Pérez DO Attending Clinician Ángel Gutierres MA Attending Clinician Unavailable Burak Coles Attending Clinician Unavailable LOLITA WASSERMAN Attending Clinician Unavailable KURT COPELAND Attending Clinician Unavailable Huy Meehan DO Attending Clinician LISHA FOSTER M.D. Attending Clinician Unavailable JOSEFINA MARTE M.D. Attending Clinician Unavailable DEAN KINSEY Attending Clinician Unavailable SAMIR MATAMOROS M.D. Attending Clinician Unavailable JUNE AGRAWAL D.O. Attending Clinician Unavailable JOSE ROBERTO GOSS M.D. Attending Clinician Unavailable Larissa Attending Clinician Unavailable DEBBIE MCNAIR Attending Clinician Unavailable MAO GRUBBS M.D. Attending Clinician Unavailable [facility] Attending Clinician Unavailable Perri Duffy Attending Clinician Ivet Mcfadden RN Attending Clinician Unavailable ALEKS RAMOS M.D. Attending Clinician Unavailable BONITA KRISHNA M.D. Attending Clinician Unavailable Physician, No Primary or Family Admitting Clinician UnavailAlina Vasquez Admitting Clinician Unavailable Referred, Self Admitting Clinician Unavailable Akiko Awad Admitting Clinician Unavailable DONTA QIU Admitting Clinician Unavailable Darien Samayoa Admitting Clinician Unavailable Ye_Dionna Admitting Clinician Unavailable Payers Payer Name Policy Type Policy Number Effective Date Expiration Date [place] mario [facility] [id number] 2018 CHOICE MEDICAID 00:00:00 Problems Condition Condition Condition Status Onset Resolution Last Treating Co mments Source Name Details Category Date Date Treatment Clinician Date Abdominal Abdominal Disease Active Uni vers pain pain 6-26 ity of 00:00: Medical Branch Inadequate Inadequate Disease Active U nivers pain pain 6-25 ity of control control 00:00: Medical Branch Pain of Pain of Disease Active Univers female female 5-23 ity of genital[place] Pain Pain Disease Active Overview: Univer s pelvic pelvic 5-22 Formattin ity of 00:00: g of this [place] note Medical might be Branch different from the original. 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 5-14 ity of [place] duyen status 00 Ct dical Branch PCOS PCOS Disease Active Univers (polycysti (polycysti 5-14 it y of c ovarian c ovarian [place] syndrome[place] syndrome) 00 [facility] Screen for Screen for Disease Active U nivers STD STD 2-06 ity of (sexually (sexually 00:[place] transmitte transmitte 00 Ct dical d disease) d disease) Br anch BMI BMI Disease Active 2018- Univers 28.0-28.9, 28.0-28.9, 2-06 it y of adult adult 00:00: [place] [facility] Over Over Disease Active Univers weight weight 2-06 ity of 00:00: [place] [facility] History of History of Disease Active U nivers seizures seizures 2-06 ity of 00:00: [place] [facility] History of 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[facility] 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 ans Pelvic Pelvic Problem Active [facility] pain pain Physici ans Pelvic Pelvic Problem Active [facility] inflammato inflammato Ph ysici ry disease ry disease an s (PID) (PID) Irregular Irregular Problem Active [facility] bleeding bleeding Physic i ans Problem Active U T follow-up follow-up Phys ici ans Bacterial Bacterial Problem Active UT vaginosis vaginosis Phys ici ans Yeast Yeast Problem Active UT infection infection Phys ici ans Abnormal Abnormal Problem Active [facility] uterine uterine Physici bleeding bleeding ans Anemia Anemia Problem Active [facility] Physici ans Allergies, Adverse Reactions, Alerts Allergy Allergy Status Severity Reaction(s) Onset Inactive Treating Comm ents Source Name Type Date Date Clinician Ken Pattersonensi Active Rash 2020-09 Univer s ne ty to 09-22 ity of adverse 00:00: [place] reaction 00 Medical s Branch Latex, DA Active U [facility] Natural 12-27 [place] Rubber 00:00: [facility] doxycycl DA Active U 0 [facility] ine 12-27 [place] 00:00: [facility] amoxicil DA Active U 0 [facility] jami 12-27 [place] 00:00: [facility] tramadol DA Active U 2020-0 [facility] 12-27 [place] 00:00: [facility] metoclop DA Active U 2020-0 [facility] ramide 12-27 [place] 00:00: [facility] ketorola DA Active U 2020-0 [facility] c 12-27 [place] 00:00: [facility] Latex, DA Active U RASH 0 [facility] Natural 12-27 [place] Rubber 00:00: [facility] doxycycl DA Active U RASH, THROAT 2020-0 HC A ine SWELLING 12-27 [place] 00:00: [facility] amoxicil DA Active U RASH, THROAT 2020-0 HC A jami SWELLING 12-27 [place] 00:00: [facility] tramadol DA Active U RASH, THROAT 2020-0 HC A SWELLING 12-27 [place] 00:00: [facility] metoclop DA Active U RASH, THROAT 2020-0 HC A ramide SWELLING 12-27 [place] 00:00: [facility] ketorola DA Active U RASH, THROAT 2020-0 HC A c SWELLING 12-27 [place] 00:00: [facility] Penicill DA Active SV 2020-1 [facility] ins 2-18 [place] 00:00: [facility] doxycycl DA Active SV 2020-1 [facility] ine 2-18 [place] 00:00: [facility] adhesive DA Active SV 2020-1 [facility] tape 2-18 [place] 00:00: [facility] amoxicil DA Active SV 2020-1 [facility] jami 2-18 [place] 00:00: [facility] lamotrig DA Active SV 2020-1 [facility] ine 2-18 [place] 00:00: [facility] tramadol DA Active SV 2020-1 [facility] 2-18 [place] 00:00: [facility] trazodon DA Active SV 2020-1 [facility] e 2-18 [place] 00:00: [facility] metoclop DA Active SV 2020-1 [facility] ramide 2-18 [place] 00:00: [facility] ketorola DA Active SV 2020-1 [facility] c 2-18 [place] 00:00: [facility] latex DA Active SV 2020-1 [facility] 2-18 [place] 00:00: [facility] Penicill DA Active SV rash 2020-1 [facility] ins 2-18 [place] 00:00: [facility] doxycycl DA Active SV rash 2020-1 [facility] ine 2-18 [place] 00:00: [facility] adhesive DA Active SV raya 2020-1 [facility] tape 2-18 [place] 00:00: [facility] amoxicil DA Active SV rash 2020-1 [facility] jami 2-18 [place] 00:00: [facility] lamotrig DA Active SV rash, sob, 2020-1 [facility] tramadol DA Active SV hives 2020-1 [facility] 2-18 [place] 00:00: [facility] trazodon DA Active SV rash 2020-1 [facility] e 2-18 [place] 00:00: [facility] metoclop DA Active SV rash 2020-1 [facility] ramide 2-18 [place] 00:00: [facility] ketorola DA Active SV hives 2020-1 [facility] c 2-18 [place] 00:00: [facility] 00 [facility] latex DA Active SV raya 2020-1 [facility] 2-18 [place] 00:00: [address] ketorola DA Active U 2020-1 [facility] c 2-10 [place] 00:00: [place] 00 [facility] latex DA Active MO 2020-1 HCA 2-10 Clear 00:00: [place] 00 [facility] Penicill DA Active U 2020-1 [facility] ins 2-10 Clear 00:00: [place] 00 [facility] doxycycl DA Active U 2020-1 [facility] ine 2-10 Clear 00:00: [place] 00 [facility] adhesive DA Active MO 2020-1 [facility] tape 2-10 Clear 00:00: [place] 00 [facility] amoxicil DA Active U 2020-1 [facility] jami 2-10 Clear 00:00: [place] 00 [facility] Penicill DA Active U RASH 2020-1 [facility] ins 2-10 Clear 00:00: [place] 00 [facility] doxycycl DA Active U RASH 2020-1 [facility] ine 2-10 Clear 00:00: [place] 00 [facility] adhesive DA Active MO RASH 2020-1 [facility] tape 2-10 Clear 00:00: [place] 00 [facility] amoxicil DA Active U RASH 2020-1 [facility] jami 2-10 Clear 00:00: [place] 00 [facility] lamotrig DA Active MO 2020-1 [facility] ine 2-10 Clear 00:00: [place] 00 [facility] lamotrig DA Active MO RASH 2020-1 [facility] ine 2-10 Clear 00:00: [place] 00 [facility] tramadol DA Active U SHORTNESS OF 2020-1 HC A BREATH 2-10 Clear 00:00: [place] 00 [facility] trazodon DA Active U RASH-UNKNOWN 2020- HC A e 2-10 Clear 00:00: [place] 00 [facility] metoclop DA Active SV SHORTNESS OF 2020- HC A ramide BREATH 2-10 Clear 00:00: [place] 00 [facility] ketorola DA Active U RASH 2020-1 [facility] c 2-10 Clear 00:00: [place] 00 [facility] latex DA Active MO RASH 2020-1 HCA 2-10 Clear 00:00: [place] 00 [facility] tramadol DA Active U 2020-1 [facility] 2-10 Clear 00:00: [place] 00 [facility] trazodon DA Active U 2020-1 [facility] e 2-10 Clear 00:00: [place] 00 [facility] metoclop DA Active SV 2020- HCA ramide 2-10 Clear 00:00: [place] 00 [facility] Penicill DA Active U 2018- [facility] ins 2-11 Clear 00:00: [place] 00 [facility] doxycycl DA Active U 2017- [facility] ine 2-11 Clear 00:00: [place] 00 [facility] amoxicil DA Active U 2018- [facility] jami 2-11 Clear 00:00: [place] 00 [facility] lamotrig DA Active MO 2017- [facility] ine 2-11 Clear 00:00: [place] 00 [facility] tramadol DA Active U 2017- [facility] 2-11 Clear 00:00: [place] 00 [facility] trazodon DA Active U 2017- H[facility] e 2-11 Clear 00:00: [place] 00 [facility] meperidi DA Active U 2017- [facility] ne 2-11 Clear 00:00: [place] 00 [facility] metoclop DA Active SV 2017- HCA ramide 2-11 Clear 00:00: [place] 00 [facility] ketorola DA Active U 2017- [facility] c 2-11 Clear 00:00: [place] 00 [facility] latex DA Active MO 2018- H[facility] 2-11 Clear 00:00: [place] 00 [facility] ketorola DA Active U RASH 2018- [facility] c 2-11 [facility] [place] latex DA Active MO RASH 2018- [facility] 2-11 [facility] 00:[facility]: [facility] [place] Penicill DA Active U RASH 2018- [facility] ins 2-11 [facility] 00:[facility]: [facility] [place] doxycycl DA Active U RASH 2018- [facility] ine 2-11 [facility] 00:[facility]: [facility] [place] amoxicil DA Active U RASH 2018- [facility] jami 2-11 [facility] 00:[facility]: [facility] [place] lamotrig DA Active MO RASH 2018- [facility] ine 2-11 [facility] 00:[facility]: [facility] [place] tramadol DA Active U SHORTNESS OF 2018- HC A BREATH 2-11 [facility] 00:[facility]: [facility] [place] trazodon DA Active U RASH-UNKNOWN 2017- HC A e 2-11 [facility] 00:[facility]: [facility] [place] meperidi DA Active U RASH-UNKNOWN 2017- HC A ne 2-11 [facility] 00:[facility]: [facility] [place] metoclop DA Active SV SHORTNESS OF 2017-09 HC A ramide BREATH 2-11 [facility] 00:[facility]: [facility] [place] TAPE DA Active MO RASH 2017- [facility] 1-04 Clear 00:00: [place] 00 [facility] Penicill DA Active U 2017-09 [facility] ins 1- [facility] 00:00: [facility] [place] doxycycl DA Active U 2017-09 [facility] ine - [facility] 00:00: [facility] [place] amoxicil DA Active U 2017-09 [facility] jami - [facility] 00:00: [facility] [place] lamotrig DA Active MO 2017-09 [facility] ine - [facility] 00:00: [facility] [place] tramadol DA Active U 2017-09 [facility] 1-04 [facility] 00:00: [facility] [place] trazodon DA Active U 2017-09 [facility] e -04 [facility] 00:[facility]: [facility] [place] meperidi DA Active U 2017-09 [facility] ne - [facility] 00[facility]00: [facility] [place] ketorola DA Active U 2017-09 [facility] c -04 [facility] 00:[facility]: [facility] [place] latex DA Active MO 2017-09 [facility] 1-04 [facility] 00:[facility]: [facility] [place] metoclop DA Active SV 2017-09 [facility] ramide 1-04 [facility] 00:[facility]: [facility] [place] tramadol DA Active U 2017-09 [facility] 0-29 [facility] 00:[facility]: [facility] [place] Meperidi Propensi Active Other (See Me thodi ne ty to Comments) 05-08 st adverse 00:00: Hospita reaction 00 l s to drug Penicill DA Active U [facility] ins 05-08 [facility] 00:[facility]: [facility] [place] doxycycl DA Active U [facility] ine 05-08 [facility] 00:00: [facility] [place] amoxicil DA Active U [facility] jami 05-08 [facility] 00:00: [facility] [place] lamotrig DA Active MO 2018-0 [facility] ine 9-02 [facility] 00:00: [facility] [place] tramadol DA Active U 2018-0 [facility] 9-02 [facility] 00:00: [facility] [place] trazodon DA Active U 2018-0 [facility] e 9- [facility] 00:00: [facility] [place] meperidi DA Active U 2018-0 [facility] ne 9- [facility] 00:00: [facility] [place] ketorola DA Active U 2018-0 [facility] c 9- [facility] 00:00: [facility] [place] latex DA Active MO 2018-0 [facility] 9- [facility] 00[facility]00: [facility] [place] Adhesive Propensi Active Rash 0 Transpore Met hodi ty to 6-[address] adverse 00:00: Hospita reaction 00 l s to drug Metoclop Propensi Active Other (See Me thodi ramide ty to Comments) 6-15 st adverse 00:00: Hospita reaction 00 l s to drug Metoclop Propensi Active Shortness of 0 Univers ramide ty to Breath 6-15 ity of Hcl adverse 00:00: [place] reaction Medical s Branch Adhesive Propensi Active Rash Transpore Uni vers ty to 6-15 tape ity of adverse 00:00: [place] reaction Medical s Branch Trazodon Propensi Active Rash 2016-09 Method i e ty to 2-08 st adverse 00:00: Hospita reaction 00 l s to drug Trazodon Propensi Active Rash 2016-09 Univer s e ty to 2-08 ity of adverse 00:00: [place] reaction Medical s Branch Doxycycl Propensi Active Swelling Univ ers ine Hcl ty to 7-19 ity of adverse 00:00: [place] reaction Medical s Branch Latex Propensi Active Rash Univers ty to 719 ity of adverse 00:00: [place] reaction Medical s Branch Penicill Propensi Active Swelling Univ ers ins ty to 719 ity of adverse 00:00: [place] reaction Medical s Branch doxycycl DA Active U [facility] ine 7-19 [facility] 00:[facility]: [facility] [place] amoxicil DA Active U [facility] jami 7-19 [facility] 00:00: [facility] [place] lamotrig DA Active MO [facility] ine 7-19 [facility] 00:00: [facility] [place] tramadol DA Active U [facility] 7-19 [facility] 00:00: [facility] [place] latex DA Active MO 2015- [facility] 7-19 [facility] 00:00: [facility] [place] Ketorola Propensi Active Other (See Me thodi c ty to Comments) 316 st adverse 00:00: Hospita reaction 00 l s to drug Penicill Propensi Active Other (See Me thodi ins ty to Comments) [address] st adverse 00:00: Hospita reaction 00 l s to drug Amoxicil Propensi Active Rash Univer s jami ty to 3-16 ity of adverse 00:00: [place] reaction 00 Medical s Branch Lamotrig Propensi Active Rash Univer s ine ty to 3-16 ity of adverse 00:00: [place] reaction 00 Medical s Branch Ketorola Propensi Active Rash Univer s c ty to 3-16 ity of Trometha adverse 00:00: [place] mine reaction 00 Medical s Branch Tramadol Propensi Active Rash Univer s ty to 3-16 ity of adverse 00:00: [place] reaction 00 Medical s Branch Doxycycl Propensi Active Swelling 2014-09 Meth graciela ine ty to 0-12 st adverse 00:00: Hospita reaction 00 l s to drug Lamotrig Propensi Active Rash 2014-09 Method i ine ty to 0-12 st adverse 00:00: Hospita reaction 00 l s to drug Latex, Propensi Active Rash 2014-09 Methodi Natural ty to 0-12 st Rubber adverse 00:00: Hospita reaction 00 l s to drug Tramadol Propensi Active Rash 2014-09 Method i ty to 0-12 st adverse 00:00: Hospita reaction 00 l s to drug Amoxicil Allergy Active UT jami TABS to drug Physici (finding ans ) Demerol Allergy Active UT TABS to drug Physici (finding ans ) Doxycycl Allergy Active UT ine to drug Physici Monohydr (finding ans ate CAPS ) LaMICtal Allergy Active UT TABS to drug Physici (finding ans ) Latex Allergy Active UT Gloves to drug Physici (finding ans ) Penicill Allergy Active UT ins to drug Physici (finding ans ) Tramadol Allergy Active [facility] to drug Physici (finding ans ) Toradol Allergy Active [facility] SOLN to drug Physici (finding ans ) Social History Social Habit Start Date Stop Date Quantity Comments Source History of Smokes tobacco Zoroastrian tobacco use daily Hospital History SDOH University o f Alcohol Frequency [place] [facility] History SDMT University o f Alcohol Std [place] [facility] Drinks Branch History SDMT University o f Alcohol Binge [place] [facility] Alcohol intake 2022-01-20 2022-01-20 Current drinker Metho dist 00:00:00 00:00:00 of alcohol Hospital (finding) Exposure to 2021-10-17 2021-11-16 Not sure University SARS-CoV-2 00:00:00 20:21:00 [facility] (event) Branch Tobacco use and 2021-06-13 2021-06-13 Smokeless tobacco Me [facility]odist exposure 00:00:00 00:00:00 non-user Hospital Alcohol Comment 2021-06-13 2021-06-13 occasional Zoroastrian 00:00:00 00:00:00 Hospital Sex Assigned At [birth year] F Zoroastrian 00:00:00 00:00:00 Hospital Smoking Status Start Date Stop Date Source Never smoked tobacco [facility] Smokes tobacco daily 2021-06-13 00:00:00 [facility] Current some day smoker 2018-05-03 00:00:00 [facility] Medications Ordered Filled Start Stop Current Ordering Indication Dosage Frequency Signature Comments Components Source Medication Medication Date Date Medication? Clinician (SIG) Name Name HYDROcodone 2021- No [id number] 1{tbl} Q6H Take 1 Methodi -acetaminop 5-17 -[address] hen (NORCO) 13:50: 00:00 mouth [facility] 10-325 mg 15 :00 every 6 l per tablet (six) hours as needed .acute pain. prn tiZANidine 2021- No 4mg Q8H Take 4 mg M ethodi (ZANAFLEX) 5-17 -[address] 4 MG tablet 13:37: 00:00 every 8 Ho spita 02 :00 (eight) l hours as needed for muscle spasms. pregabalin 0 Yes 75mg Q.5D Take 75 mg M ethodi (LYRICA) 75 5-[address] MG capsule 13:11: (two) Hospit a 39 times a l day. adalimumab 0 Yes 40mg Q1W Inject 40 Me thodi (Humira) 40 5-[address] mg/0.8 mL 13:10: the skin [facility]osp [facility] injection 03 every 7 l days. buPROPion 0 Yes 300mg QD Take 300 Met hodi XL 5-[address] (WELLBUTRIN 13:10: mouth Hospi ta XL) 300 MG 03 every l 24 hr morning. tablet cyclobenzap Yes 10mg Q.[id number] Take 10 mg Methodi rine 5-17 [id number] [address] mouth [address] (FLEXERIL) 13:09: 3D (three) [facility]osp [facility] 10 mg 39 times a l tablet day as needed for muscle spasms. diazePAM 0 Yes 10mg Q12H Take 10 mg Met hodi (VALIUM) 10 5-[address] MG tablet 13:09: every 12 Hosp [facility] 39 (twelve) l hours as needed for anxiety. meloxicam 0 Yes 7.5mg Q12H Take 7.5 Met hodi (MOBIC) 7.5 5-[address] mg tablet 13:09: mouth Hospita 39 every 12 l (twelve) hours as needed. HYDROcodone 2021- No [id number] 1{tbl} Q6H Take 1 Methodi -acetaminop 5-17 06-[address] hen (NORCO) 00:00: 04:59 mouth [facility] 10-325 mg 00 :00 every 6 l per tablet (six) hours as needed for severe pain for up to 30 days .chronic pain. prn Max Daily Amount: 4 tablets diazePAM 2021-0 2021- No 10mg Q6H Take 10 mg Me thodi (VALIUM) 10 10-01-[address] MG tablet 16:12: 00:00 every 6 Hosp [facility] 01 :00 (six) l hours as needed. diazePAM 2021-0 2021- No 10mg Q12H Take 1 Method i (VALIUM) 10 10-0128 tablet (10 s t MG tablet 00:00: 04:59 mg total) Ho spita 00 :00 by mouth l every 12 (twelve) hours as needed for anxiety for up to 60 days. diazePAM 2020-09- No [id number] 10mg Q12H Take 1 Me thodi (VALIUM) 10 10-15-09 tablet (10 s t MG tablet 00:00: 05:59 mg total) Ho spita 00 :00 by mouth l every 12 (twelve) hours as needed for anxiety for up to 30 days. diazePAM 2020-09- No 10mg Q12H Take 1 Method i (VALIUM) 10 10-15 tablet (10 s t MG tablet 00:00: 00:00 mg total) Ho spita 00 :00 by mouth l every 12 (twelve) hours as needed for anxiety for up to 30 days. diazePAM 2020-09- No 10mg Q12H Take 10 mg Me thodi (VALIUM) 10 10-[address] MG tablet 08:23: 00:00 every 12 Hos teddy 05 :00 (twelve) l hours as needed. diazePAM 2020-09- No 10mg Q12H Take 1 Method i (VALIUM) 10 10-14 tablet (10 s t MG tablet 00:00: 00:00 mg total) Ho spita 00 :00 by mouth l every 12 (twelve) hours as needed for anxiety for up to 30 days. diazePAM 2020-09- No 10mg Q8H Take 10 mg Me thodi (VALIUM) 10 09-[address] MG tablet 08:53: 00:00 every 8 Hosp [facility] 41 :00 (eight) l hours as needed for anxiety. diazePAM 2020-09- No [id number] 10mg Q12H Take 1 Me thodi (VALIUM) 10 09-09- tablet (10 s t MG tablet 00:00: 05:59 mg total) Ho spita 00 :00 by mouth l every 12 (twelve) hours as needed for anxiety for up to 30 days. azithromyci 2020-09- No [id number] 250mg QD Take 1 Methodi n 0- tablet st (Zithromax 00:00: 00:00 (250 mg Hos teddy Z-Anson) 250 00 :00 total) by l MG tablet mouth daily. Take 2 tablets the first day, then 1 tablet daily for 4 days. pantoprazol 2020-0 Yes [id number] 40mg Take 1 Univers e 4-18 tablet by ity of (PROTONIX) 00:00: mouth [place] 40 mg EC 00 daily. Medical tablet Branch dicyclomine 2020-0 Yes [id number] 20mg Take 1 Univers 20 mg 4-18 tablet by ity of tablet 00:00: mouth [place] 00 every 6 Medical (six) Branch hours as needed for Abdominal pain. ondansetron 2020-0 Yes [id number] 4mg Take 1 Univers (ZOFRAN) 4 4-18 tablet by ity of mg tablet 00:00: mouth [place] 00 every 8 Medical (eight) Branch hours as needed for Nausea and Vomiting (N/V). pantoprazol 2020-0 Yes [id number] 40mg Take 1 Univers e 4-18 tablet by ity of (PROTONIX) 00:00: mouth [place] 40 mg EC 00 daily. Medical tablet Branch dicyclomine 0 Yes [id number] 20mg Take 1 Univers 20 mg 4-18 tablet by ity of tablet 00:00: mouth [place] 00 every 6 Medical (six) Branch hours as needed for Abdominal pain. ondansetron 2020-0 Yes [id number] 4mg Take 1 Univers (ZOFRAN) 4 4-18 tablet by ity of mg tablet 00:00: mouth [place] 00 every 8 Medical (eight) Branch hours as needed for Nausea and Vomiting (N/V). pantoprazol 2020-0 Yes [id number] 40mg Take 1 Univers e 4-18 tablet by ity of (PROTONIX) 00:00: mouth [place] 40 mg EC 00 daily. Medical tablet Branch dicyclomine 2020-0 Yes [id number] 20mg Take 1 Univers 20 mg 4-18 tablet by ity of tablet 00:00: mouth [place] 00 every 6 Medical (six) Branch hours as needed for Abdominal pain. ondansetron 2020-0 Yes [id number] 4mg Take 1 Univers (ZOFRAN) 4 4-18 tablet by ity of mg tablet 00:00: mouth [place] 00 every 8 Medical (eight) Branch hours as needed for Nausea and Vomiting (N/V). acetaminoph 2020-1 Yes [id number] 1{tbl} Take 1-2 Univers en-codeine 2-10 tablets by ity of 300-30 mg 00:00: mouth [place] tablet 00 every 6 Medical (six) Branch hours as needed for Pain (scale 4-6). Indication s: acute pain acetaminoph 2020-1 Yes [id number] 1{tbl} Take 1-2 Univers en-codeine 2-10 tablets by ity of 300-30 mg 00:00: mouth [place] tablet 00 every 6 Medical (six) Branch hours as needed for Pain (scale 4-6). Indication s: acute pain acetaminoph 2020-1 Yes [id number] 1{tbl} Take 1-2 Univers en-codeine 2-10 tablets by ity of 300-30 mg 00:00: mouth [place] tablet 00 every 6 Medical (six) Branch hours as needed for Pain (scale 4-6). Indication s: acute pain acetaminoph 2020-0 Yes [...] Pain (scale 1-3). Indication s: acute pain Acetaminoph Acetaminoph 2020-0 Yes JOSEFINA Take 1 po UT en-Codeine en-Codeine 6-12 DZIADEK q6h PRN. Physici 300-30 MG 300-30 MG 00:00: M.D. ans Oral Tablet Oral Tablet 00 medroxyPROG medroxyPROG 2019-0 Yes SAMIR Take one UT ESTERone ESTERone 6-10 DYKES M.D. tablet by Physici Acetate 10 Acetate 10 00:00: mouth ans MG Oral MG Oral 00 twice Tablet Tablet daily for vaginal bleeding. IBU 600 MG IBU 600 MG 2019-0 Yes SAMIR Q0.3333D TAKE 1 UT Oral Tablet Oral Tablet 6-10 DYKES M.D. TABLET 3 Physici 00:00: TIMES ans 00 DAILY NEEDED. Ondansetron Ondansetron Yes SAMIR Take one 4 UT HCl - 4 MG HCl - 4 MG 6-10 DYKES M.D. mg pill po Physici Oral Tablet Oral Tablet 00:00: when ans 00 feeling nauseated. Do not take more than two pills daily. Fluconazole Fluconazole Yes JUNE TAKE 1 UT 150 MG Oral 150 MG Oral 5-29 KOTHARE TABLET 1 Physici Tablet Tablet 00:00: D.O. TIME ONLY. ans 00 metroNIDAZO metroNIDAZO 2019-0 Yes JUNE Q0.5D TAKE 1 UT LE 500 MG LE 500 MG 5-28 KOTHARE TABLET Physici Oral Tablet Oral Tablet 00:00: D.O. TWICE ans 00 DAILY UNTIL FINISHED. nystatin 2019-0 Yes [id number] Apply to Univers 100,000 2-05 affected ity of unit/gram 00:00: area(s) 3 Zay as ointment 00 (three) Medical times Branch daily. nystatin 2020-0 Yes [id number] Apply to Univers 100,000 2-05 affected ity of unit/gram 00:00: area(s) 3 Zay as ointment 00 (three) Medical times Branch daily. nystatin 2020-0 Yes [id number] Apply to Univers 100,000 2-05 affected ity of unit/gram 00:00: area(s) 3 Zay as ointment 00 (three) Medical times Branch daily. levoFLOXaci levoFLOXaci 2018-09 Yes MAO QD TAKE 1 UT n 500 MG n 500 MG 0-23 GRUBBS TABLET Ph ysici Oral Tablet Oral Tablet 00:00: M.D. DAILY ans 00 UNTIL FINISHED. metroNIDAZO metroNIDAZO 2018-09 Yes MAO Q0.5D TAKE 1 UT LE 500 MG LE 500 MG 0-23 GRUBBS TABLET Physici Oral Tablet Oral Tablet 00:00: M.D. TWICE ans 00 DAILY UNTIL FINISHED. CefTRIAXone CefTRIAXone 2018-09 Yes MAO Inject UT Sodium 250 Sodium 250 0-23 GRUBBS 250mg IM Physici MG MG 00:00: M.D. in clinic ans Injection Injection 00 Solution Solution Reconstitut Reconstitut ed ed Sprintec 28 Sprintec 28 2018-09 Yes MAO 1 QD TAKE 1 UT 0.25-35 0.25-35 0-23 GRUBBS TABLET Phys ici MG-MCG Oral MG-MCG Oral 00:00: M.D. DAILY ans Tablet Tablet 00 DIRECTED. medroxyPROG Yes [id number] 150mg Univers ESTERone 5-14 ity of (DEPO-PROVE 18:30: [place] RA) 00 Medical injection Branch 150 mg medroxyPROG Yes [id number] 150mg Univers ESTERone 5-14 ity of (DEPO-PROVE 18:30: [place] RA) 00 Medical injection Branch 150 mg medroxyPROG Yes [id number] 150mg Univers ESTERone 5-14 ity of (DEPO-PROVE 18:30: [place] RA) 00 Medical injection Branch 150 mg Keppra 500 Keppra 500 2018- Yes M.D. U T MG Oral MG Oral 1-02 Physici Tablet Tablet 00:00: ans 00 Immunizations Ordered Immunization Filled Immunization Date Status Commen ts Source Name Name PFIZER COVID-19 MRNA 2021-07-09 Completed Meth odist VACCINATION 00:00:00 Hospital Vital Signs Vital Name Observation Time Observation Value Comments Source Systolic blood 2022-01-20 123 mm[Hg] [facility] 18:11:00 Hospital Diastolic blood 2022-01-20 85 mm[Hg] [facility] 18:11:00 Hospital Heart rate 2022-01-20 88 /min [facility] 18:11:00 Hospital Body temperature 2022-01-20 36.28 Alisha [facility] 18:11:00 Hospital Respiratory rate 2022-01-20 20 /min [facility] 18:11:00 Hospital Body height 2022-01-20 160 cm [facility] 18:11:00 [facility] Body weight 2022-01-20 66.225 kg [facility] 18:11:00 Hospital BMI 2022-01-20 25.86 kg/m2 [facility] 18:11:00 Hospital Oxygen saturation 2022-01-20 99 /min [facility] in Arterial blood 18:11:00 Hospital by Pulse oximetry Systolic blood 2020-02-16 147 mm[Hg] [facility] pressure 14:30:00 Diastolic blood 2020-02-16 103 mm[Hg] [facility] pressure 14:30:00 Body height 2020-02-16 67 [in_us] [facility] 14:30:00 Weight 2020-02-16 162 [lb_av] [facility] 14:30:00 Body mass index 2020-02-16 25.37 kg/m2 [facility] (BMI) [Ratio] 14:30:00 Body temperature 2020-02-16 98 [degF] Method: [facility] 14:30:00 Temporal Heart Rate 2020-02-16 102 /min [facility] 14:30:00 Systolic blood 2020-02-14 113 mm[Hg] Location: LLE; [facility] pressure 09:21:00 Position: Sitting Diastolic blood 2020-02-14 72 mm[Hg] Location: LLE; [facility] ans pressure 09:21:00 Position: Sitting Body height 2020-02-14 67 [in_us] [facility] 09:21:00 Weight 2020-02-14 161 [lb_av] [facility] 09:21:00 Body mass index 2020-02-14 25.22 kg/m2 [facility] (BMI) [Ratio] 09:21:00 Body temperature 2020-02-14 95.3 [degF] [facility] 09:21:00 Heart Rate 2020-02-14 87 /min [facility] 09:21:00 Systolic blood 2020-01-31 108 mm[Hg] Location: RUE; [facility] pressure 08:57:00 Position: Sitting Diastolic blood 2020-01-31 76 mm[Hg] Location: RUE; [facility] ans pressure 08:57:00 Position: Sitting Body height 2020-01-31 67 [in_us] [facility] 08:57:00 Weight 2020-01-31 159.375 [lb_av] [facility] 08:57:00 Body mass index 2020-01-31 24.96 kg/m2 [facility] (BMI) [Ratio] 08:57:00 Body temperature 2020-01-31 97.9 [degF] Method: Oral [facility] 08:57:00 Heart Rate 2020-01-31 78 /min [facility] 08:57:00 BP Systolic 2019-06-28 130 mm[Hg] Location: RUE; [facility] 16:14:00 Position: Sitting BP Diastolic 2019-06-28 82 mm[Hg] Location: RUE; [facility] 16:14:00 Position: Sitting Height 2019-06-28 67 [in_us] [facility] 16:14:00 Weight 2019-06-28 156 [lb_av] [facility] 16:14:00 Body Mass Index 2019-06-28 24.43 kg/m2 [facility] Calculated 16:14:00 Heart Rate 2019-06-28 114 /min [facility] 16:14:00 BP Systolic 2018-09-07 124 mm[Hg] [facility] 16:12:00 BP Diastolic 2018-09-07 88 mm[Hg] [facility] 16:12:00 Height 2018-09-07 67 [in_us] [facility] 16:12:00 Weight 2018-09-07 159 [lb_av] [facility] 16:12:00 Body Mass Index 2018-09-07 24.9 kg/m2 [facility] Calculated 16:12:00 Heart Rate 2018-09-07 109 /min [facility] 16:12:00 Procedures Procedure Date / Time Performing Clinician Source Performed CT SPINE EXTERNAL STUDY 2021-11-28 20:02:[address] [facility] [address] SPINE EXTERNAL STUDY 2021-11-28 19:57:[address] [facility] [address] SPINE EXTERNAL STUDY 2021-11-28 19:52:18 [facility] REFERRAL- 2021-11-21 05:01:00 Doctor Unassigned, No [facility] REQUEST/RESPONSE Name Medical Branch MRI SPINE EXTERNAL 2021-10-09 18:17:21 Christine Mcdonnell [facility] STUDY [QL] CBC (INCLUDES 2020-02-16 00:00:00 [facility] DIFF/PLT) EMB 2020-02-14 00:00:00 [facility] [place] [facility] - Affirm VPIII 2020-02-14 00:00:00 [facility] (BV Panel) . [facility] - GC/Chlamydia 2020-02-14 00:00:00 [facility] [QL] CBC (INCLUDES 2020-02-14 00:00:00 [facility] DIFF/PLT) [QL] AMYLASE 2020-02-14 00:00:00 [facility] [QL] LIPASE 2020-02-14 00:00:00 [facility] . [facility] - Affirm VPIII 2020-01-31 00:00:00 [facility] (BV Panel) . [facility] - GC/Chlamydia 2020-01-31 00:00:00 [facility] [QL] CBC (INCLUDES 2020-01-31 00:00:00 [facility] DIFF/PLT) [QLH] CULTURE, URINE, 2019-06-28 00:00:00 [facility] ROUTINE . [facility] - PAP w/reflex 2019-06-28 00:00:00 [facility] HPV US Pelvic with 2019-06-28 00:00:00 [facility] Transvaginal and Pelvic Doppler [id number] History of Dental [facility] surgery History of [facility] section low transverse Plan of Care Planned Activity Planned Date Details Comments Source Future Scheduled 2022 Pneumococcal Vaccine: [facility] Test 09:54:03 Pediatrics (0 to 5 Years) and At-Risk Patients (6 to 64 Years) (1 - PCV) [code = Pneumococcal Vaccine: Pediatrics (0 to 5 Years) and At-Risk Patients (6 to 64 Years) (1 - PCV)] Future Scheduled 2022 Hepatitis C screening [facility] Test 09:54:03 (procedure) [code = 461874915] Future Scheduled 2022 [facility] Test 09:54:03 malignant neoplasm of cervix (procedure) [code = 643413828] Future Scheduled 2022 COVID-19 VACCINE (3 - [facility] Test 09:54:03 Booster for Pfizer series) [code = COVID-19 VACCINE (3 - Booster for Pfizer series)] Future Scheduled 2022 [facility]ENZA [facility]ACCINE [facility] 09:54:03 [code = INFLUENZA VACCINE] Encounters Start End Encounter Admission Attending Care Care Encounter Source Date/Time Date/Time Type Type Clinicians Facility Department ID 2021-07-06 Emergency [facility] [id number] [facility] 13:36:[address] [facility] 2021-07-05 Emergency [facility] [id number] Univers 10:22:47 ity of [facility] 2021-07-04 Emergency [facility] [id number] Univers 11:22:30 ity of [facility] 2021-07-04 Emergency [facility] [id number] Univers 10:48:55 ity [facility] 2021-01-09 Inpatient [facility] MALISSA [id number] [facility] 10:52:00 [id number] [facility] 2020-12-27 Inpatient [facility] MALISSA [id number] [facility] 20:29:00 65 [facility] 2020-12-26 Inpatient EL Luz, [facility] ENDO [id number] [facility] 10:00:00 Rik 01 [facility] 2020-12-22 Inpatient [facility] [id number] [facility] 23:08:15 49 [facility] 2020-08-23 Inpatient [facility] MALISSA [id number] [facility] 09:10:00 26 [facility] 2020-08-05 Inpatient [facility] MALISSA [id number] [facility] 20:55:00 [id number] [facility] 2020-02-20 [facility] 7511 M [facility] 10:04:01 [facility] 2022-06-15 2022-06-16 [facility], 1.2.840.1 [id number] Methodi 14:15:00 11:08:59 Visit Christine 56968.1.[address] 3.430.2.7 Hospit a 3.231216 l .8 2022-06-15 2022-06-16 Outpatient [facility] [id number] [place] 00:00:00 00:00:[address] 2022-06-15 2022-06-15 [facility], 1.2.840.1 [id number] Methodi 14:15:15 23:59:00 Encounter Christine 43921.1.1 971 s t 3.430.2.7 Hospit a .3.003553 l .8 2022-06-15 2022-06-15 [facility], 1.2.840.1 [id number] Methodi 14:15:13 23:59:00 Encounter Christine 57922.1.1 963 s t 3.430.2.7 Hospit a .3.367569 l .8 2022-06-15 2022-06-15 [facility], 1.2.840.1 [id number] Methodi 14:13:36 14:14:00 Encounter Christine 36863.1.1 680 s t 3.430.2.7 Hospit a .3.091453 l .8 2022-06-15 2022-06-15 [facility], 1.2.840.1 [id number] Methodi 14:12:01 14:12:01 Encounter Christine 76412.1.1 418 s t 3.430.2.7 Hospit a .3.947384 l .8 2022-06-15 2022-06-15 [facility], 1.2.840.1 [id number] 2099 [id number] Methodi 00:00:00 00:00:00 Only Christine 02066.1.[address] 3.430.2.7 Hospit a .3.001840 l .8 2022-06-15 2022-06-15 Travel 1.2.840.1 1.2.380.336 [id number] [id number] Methodi 00:00:00 00:00:[address] 3.430.2.7 0.2.7.3.698 spita .3.309752 084.8 l .8 2022-06-15 2022-06-15 [facility] [id number] [place] [address] 00:00:00 00:00:00 CHRISTINE [address] 2022-06-15 2022-06-15 [facility] [address] [place] [address] 00:00:00 00:00:00 CHRISTINE [address] 2022-06-15 2022-06-15 Outpatient [facility] 18 [place] 00:00:00 00:00:00 CHRISTINE [address] 2022-06-15 2022-06-15 Outpatient ELIEZER [facility] 76495 40943 [place] 00:00:00 00:00:00 [address]ST[address] 2022-06-11 2022-06-11 Travel 1.2.840.1 1.2.366.859 [id number] Methodi 00:00:00 00:00:[address] 3.430.2.7 0.2.7.3.698 Ho spita .3.729895 084.8 l .8 2022-02-17 2022-02-17 Refill Vivian, 1.2.840.1 [id number] 2100 [id number] Methodi 00:00:00 00:00:[address] [place] [address] [place] 3.430.2.7 Hospit a .3.348599 l .8 2022-01-20 2022-01-20 Office Vivian 1.2.840.1 [id number] 2100 [id number] Methodi 13:00:00 13:57:49 Visit Yoseph 84732.1.[address] Andrea 3.430.2.7 Hospit a .3.540638 l .8 2022-01-20 2022-01-20 Telephone Allie [facility] 1.2.840.114 [id number] [facility] 00:00:00 00:00:00 Michi MIJARESPEC 350.1.13.10 ity of [place] 4.2.7.2.[address] [facility] [id number] [facility] AND [address] [facility] 2022-01-20 2022-01-20 Travel 1.2.840.1 1.2.527.818 [id number] [id number] Methodi 00:00:00 00:00:[address] 3.430.2.7 0.2.7.3.698 Ho spita .3.052056 084.8 l .8 2022-01-20 2022-01-20 [facility] 09540 77062 [place] 00:00:00 00:00:00 YOSEPH [address] 2022-01-19 2022-01-19 Telephone Vivian [facility] 1.2.840.114 [id number] Univers 00:00:00 00:00:00 Yoseph MULTISPEC 350.1.13.10 ity of [place] [address].7.[address] [facility] [id number] [facility] AND [facility]CO 011 Branch [facility]ES [facility]IN[facility] 2021-11-21 2021-11-21 Orders Doctor SUDHA 1.2.840.114 [id number] Univers 00:00:00 00:00:00 Only Unassigned, ALEM 350.1.13.10 [facility] 4.2.7.2.686 [facility] [id number] [facility] 009 Branch 2021-11-17 2021-11-18 Emergency X [facility] ERT [id number] Univers 19:45:00 00:44:00 DONTA ity [facility] 2021-11-17 2021-11-18 Emergency [facility] 1.2.775.600 [id number] Univers 19:45:00 00:44:00 Donta GUERRERO 350.1.13.10 i ty of [place] 4.2.7.2.686 [facility] [id number] [place] 879494 Branch 2021-11-16 2021-11-16 Emergency X [facility] ERT [id number] Univers 20:28:00 21:58:00 MILADYS ity [facility] 2021-11-16 2021-11-16 Emergency [facility] 1.2.589.625 [id number] Univers 20:28:00 21:58:00 Miladys GUERRERO 350.1.13.10 ity [facility] 4.2.7.2.686 [facility] [id number] [place] 879494 Branch 2021-10-02 2021-10-02 Emergency EM Wang, SALENA MALISSA [id number] [facility] 16:59:00 20:32:[id number] [facility] 2021-10-02 2021-10-02 Emergency EM EDDOC, HCACL HCACL [id number] [facility] 16:59:00 20:32:00 GENERIC 76 [facility] 2021-10-01 2021-10-01 Petr Borges 1.2.840.1 [id number] 2100 [id number] Methodi 00:00:00 00:00:[address] [place] 3.430.2.7 Hospit a .3.412508 l .8 2021-09-30 2021-09-30 Emergency [facility] [id number] Univers 13:31:00 16:34:00 AWILDA calixto [facility] 2021-09-30 2021-09-30 Emergency [facility] 1.2.840.114 [id number] Univers 13:31:00 16:34:00 Awilda GUERRERO 350.1.13.10 ity [facility] 4.2.7.2.686 [facility] [id number] [address] 2021-08-14 2021-08-14 Refill Nenita, 1.2.840.1 [id number] Methodi 00:00:00 00:00:[address] 3.430.2.7 Hospit a .3.620960 l .8 2021-08-12 2021-08-12 Refill Nenita, 1.2.840.1 [id number] Methodi 00:00:00 00:00:[address] 3.430.2.7 Hospit a .3.582744 l .8 2021-07-23 2021-07-23 Emergency X [facility] ERT [id number] Univers 16:14:00 17:06:00 itmisty [facility] 2021-07-23 2021-07-23 Emergency [facility] 1.2.867.786 [id number] Univers 16:14:00 17:06:00 YOLANDA 350.1.13.10 i ty [place] 4.2.7.2.686 [facility] [id number] [facility] 084 Branch 2021-07-23 2021-07-23 Emergency EM SALENA Coles AERS [id number] [facility] 13:58:00 14:24:00 Burak [id number] [facility] 2021-07-23 2021-07-23 Emergency EM SALENA Coles HCACL [id number] [facility] 13:58:00 14:24:00 Burak 69 [facility] 2021-07-10 2021-07-10 Telemedici Vivian, 1.2.840.1 [id number] Methodi 08:30:00 09:02:51 ne [place] 93772.1.1 590 [facility] 3.430.2.7 Hospit a .3.736016 l .8 2021-07-10 2021-07-10 [facility] [id number] 14652 [place] 00:00:00 00:00:00 YOSEPH [address] 2021-07-09 2021-07-09 Travel 1.2.840.1 1.2.844.205 [id number] Methodi 00:00:00 00:00:[address] 3.430.2.7 0.2.7.3.698 spita .3.868329 084.8 l .8 2021-06-13 2021-06-13 [facility] [id number] 17321 [place] 00:00:00 00:00:00 YOSEPH [address] 2021-04-17 2021-04-17 Emergency E LOLITA WASSERMAN [facility] MED 7515 MH 16:40:00 19:42:00 [facility] 2021-03-30 2021-03-30 Emergency E SATURNINO [facility] 7514 MHBL 00:46:00 06:26:00 KURT 2021-01-15 2021-01-15 Outpatient EscobarSALENA gallardo OUTD [id number] [facility] 08:00:00 08:00:00 Rik [id number] [facility] 2021-01-09 2021-01-09 Emergency E CESTA, LOLITA [facility] 7513 12:29:00 16:41:[address] [facility] [address] [facility] 2020-12-26 2020-12-26 Emergency [facility] 064 [id number] 09 [place] 00:00:00 00:00:[address] 2020-12-21 2020-12-22 Emergency [facility] 1.2.175.729 [id number] 22:42:00 02:02:00 Miladys Guerrero 350.1.13.10 [place] 4.2.7.2.686 [place] [id number] 084 2020-12-21 2020-12-22 Emergency [facility] 1.2.191.446 [id number] 7932 [facility] 22:42:00 02:02:00 Miladys Guerrero 350.1.13.10 ity of [place] 4.2.7.2.686 [facility] [id number] [facility] 084 [place] 2020-12-21 2020-12-21 Orders Doctor HALEY 1.2.840.114 [id number] 00:00:00 00:00:00 Only Unassigned, ALEM 350.1.13.10 [place] [facility] 4.2.7.2.686 [id number] [facility] 2020-12-21 2020-12-21 Orders Doctor SUDHA 1.2.840.114 [id number] [facility] 00:00:00 00:00:00 Only Unassigned, ALEM 350.1.13.10 ity of [place] [facility] 4.2.7.2.686 [facility] [id number] [facility] 009 Branch 2020-08-15 2020-08-19 Inpatient [facility] [id number] [facility] 14:57:00 06:49:15 39 [facility] 2020-08-15 2020-08-15 Emergency [facility] 1.2.905.582 [id number] 03:26:00 06:17:00 Donta Guerrero 350.1.13.10 [place] 4.2.7.2.686 Adrian [id number] 08 2020-08-15 2020-08-15 Emergency [facility] 1.2.223.801 [id number] [facility] 03:26:00 06:17:00 Donta Guerrero 350.1.13.10 i ty of [place] 4.2.7.2.686 [facility] [id number] [address] 2020-04-13 2020-04-13 Emergency [facility] 1.2.840.114 [id number] 19:38:00 23:40:00 Awilda Guerrero 350.1.13.10 [place] 4.2.7.2.686 Adrian [id number] [facility] 2020-04-13 2020-04-13 Emergency [facility] 1.2.840.114 [id number] [facility] 19:38:00 23:40:00 Awilda Guerrero 350.1.13.10 ity of [place] 4.2.7.2.686 [facility] [id number] [address] 2020-04-13 2020-04-13 Orders Doctor HALEY 1.2.840.114 [id number] 00:00:00 00:00:00 Only Unassigned, ALEM 350.1.13.10 [place] [facility] 4.2.7.2.686 [id number] [facility] 2020-04-13 2020-04-13 Orders Doctor HALEY 1.2.840.[id number] [place] [address] 00:00:00 00:00:00 Only Unassigned, ALEM 350.1.13.10 ity of [place] [facility] 4.2.7.2.686 [facility] [id number] [address] 2020-04-10 2020-04-10 Emergency [facility] 1.2.560.222 [id number] 15:39:00 19:05:00 Huy Guerrero 350.1.13.10 [place] 4.2.7.2.686 Adrian [id number] [facility] 2020-04-10 2020-04-10 Emergency , [facility] 1.2.597.681 [id number] 5068 [facility] 15:39:00 19:05:00 Huy Guerrero 350.1.13.10 i ty of [place] 4.2.7.2.686 [facility] [id number] [address] 2020-04-10 2020-04-10 Orders Doctor SUDHA 1.2.840.114 [id number] 00:00:00 00:00:00 Only Unassigned, ALEM 350.1.13.10 [place] [facility] 4.2.7.2.686 [id number] 009 2020-04-10 2020-04-10 Orders Doctor SUDHA 1.2.840.114 [id number] Univers 00:00:00 00:00:00 Only Unassigned, ALEM 350.1.13.10 ity of [place] [facility] 4.2.7.2.686 Zay as [id number] [facility] 009 Branch 2020-03-11 2020-03-11 Dusty FOSTER [facility] Obstetrics [id number] [place] 10:00:00 10:00:00 t; Gayatri HUSAIN and Quynh FOSTER Gynecology rubén HUSAIN M.D. [facility] 2020-02-28 2020-02-28 [facility] [id number] [place] 08:30:00 08:30:00 t; Gayatri HUSAIN ans ASHA, M.D. 2020-02-23 2020-02-23 Dusty [facility] [id number] [place] 11:00:00 11:00:00 t; Gayatri HUSAIN ans ASHA, M.D. 2020-02-16 2020-02-16 Dusty MARTE [facility] Obstetrics [id number] [place] 14:15:00 14:15:00 t; Yue ROCHA i, M.D. Gynecology [facility] Crawford M.D. Clinic 2020-02-15 2020-02-15 Emergency E AMELIE, MHSE MHSE [id number] MH 20:06:00 21:19:00 [facility] 2020-02-14 2020-02-14 Dusty [facility] Obstetrics [id number] [place] 09:00:00 09:00:00 t; SAMIR MATAMOROS, and Quynh DAWSON M.D. Gynecology [facility] 2020-01-31 2020-01-31 Dusty GRIFFITHARE, UTP Obstetrics [id number] [place] 08:30:00 08:30:00 t; JUNE and Jennifer AGRAWAL D.O. Gynecology Dinah Webb D.O. Clinic 2019-12-20 2019-12-20 Appointmen MARIBEL GOSS Orthopedics [id number] [place] 09:30:00 09:30:00 t; JOSE ROBERTO [facility] ramirez GOSS M.D. Sports Jewel Lazo M.D. [facility] 2019-12-20 2019-12-20 Outpatient Raju_P MMG MMG [id number] [place] 04:51:00 04:51:00 0415 [facility] 2019-12-18 2019-12-18 Emergency E TABBY, MHSE MHSE [id number] MH 20:54:00 21:40:[address] [facility] 2019-10-11 2019-10-12 [facility] [id number] 21:52:36 00:17:00 Donta Guerrero [id number] [place] [id number] Adrian [id number] 2019-10-11 2019-10-12 Emergency X [facility] ERT [id number] Univers 21:52:36 00:17:00 DONTA calixto [facility] 2019-10-11 2019-10-12 Emergency [facility] [id number] Univers 21:52:36 00:17:00 Donta Guerrero [id number] i adenike of [place] [id number] [facility] [id number] [address] 2019-10-11 2019-10-11 Orders Doctor HALEY [id number] 00:00:00 00:00:00 Only UnassignedALEM [id number] [place] [facility] [id number] [id number] 2019-10-11 2019-10-11 Orders Doctor HALEY [id number] Univers 00:00:00 00:00:00 Only UnassignedALEM 350.1.13.10 ity of [facility] 4.2.7.2.686 Zay as [phone] [address] 2019-06-28 2019-06-28 Appointmen MARIBEL GRUBBS Obstetrics [id number] [place] 16:00:00 16:00:00 t; Gayatri CAVANAUGH and Ph ysici HUMERA, Gynecology Dinah Medina M.D. Clinic 2019-05-12 2019-05-12 Nurse Visit, [facility] 1.2.840.114 [id number] 10:44:42 12:05:57 Visit [facility] SENIOR WEB ARCHITECT 350.1.13.10 Nurse [facility] 4.2.7.2.686 MATERNAL [id number] & CHILD 107 [facility] 2019-05-12 2019-05-12 Nurse Visit, [facility] Nurse [facility] 1.2 .840.114 [id number] [facility] 10:44:42 12:05:57 Visit Perri Pérez SENIOR WEB ARCHITECT 350.1.13.10 ity of [facility] 4.2.7.2.686 Zay as MATERNAL [phone] Med ical & CHILD [address] [place] [address] 2019-05-10 2019-05-10 Telephone [facility] 1.2.840.114 [id number] 00:00:00 00:00:00 Perri Olivier SENIOR WEB ARCHITECT 350.1.13.10 [facility] 4.2.7.2.686 MATERNAL [id number] & CHILD 107 [facility] 2019-05-10 2019-05-10 [facility] 1.2.840.114 [id number] [facility] 00:00:00 00:00:00 Perri Olivier SENIOR WEB ARCHITECT 350.1.13.10 it y of [facility] 4.2.7.2.686 Zay as MATERNAL [id number] Med ical & CHILD 107 [facility] 2019-04-03 2019-04-03 Patient ROBIN Mcfadden 1.2.840.114 [id number] 00:00:00 00:00:00 Secure [facility] 350.1.13.10 [facility] 4.2.7.2.686 [id number] [facility] 2019-04-03 2019-04-03 Patient ROBIN Mcfadden 1.2.840.114 [id number] Univers 00:00:00 00:00:00 Secure Msg Ivet Y HEALTH 350.1.13.10 ity of CL[place] [id number] [address] 2019-03-07 2019-03-07 Patient Doctor SUDHA 1.2.840.114 [id number] 00:00:00 00:00:00 Secure Msg Unassigned, ALEM 350.1.13.10 [facility] 4.2.7.2.686 [id number] [facility] 2019-03-07 2019-03-07 Patient Doctor SUDHA 1.2.840.114 [id number] Univers 00:00:00 00:00:00 Secure Msg Unassigned, ALEM 350.1.13.10 ity of [facility] 4.2.7.2.686 Zay as [id number] [address] 2019-02-27 2019-02-27 Patient Doctor SUDHA 1.2.840.114 [id number] 00:00:00 00:00:00 Secure Msg Unassigned, ALEM 350.1.13.10 [facility] 4.2.7.2.686 [id number] [facility] 2019-02-27 2019-02-27 Patient Doctor SUDHA 1.2.840.114 [id number] Univers 00:00:00 00:00:00 Secure Msg Unassigned, ALEM 350.1.13.10 ity of [facility] 4.2.7.2.686 Zay as [id number] [address] 2018-10-13 2018-10-13 AppointMARIBEL Puente UTP [id number] [place] 14:30:00 14:30:00 t; Jennifer FINK i, M.D. ans JORDAN, M.D. 2018-09-07 2018-09-21 Outpatient [facility] [id number] 15:00:00 10:19:03 2018-09-07 2018-09-07 AppointMARIBEL Rae Package Liner [id number] [place] 15:00:00 15:00:00 t; BONITA KRISHNA Phys ici KANDACE, M.D. ans M.D. Results Test Description Test Time Test Comments Results Result Comments Source UR HCG QUAL 2021-10-02 18:52:00 Test Item Value Reference Range Interpretation Comme nts UR HCG QUAL (test code = HCGQLU) NEGATIVE NEGATIVE SURGICAL [id number] 08:42:00 Test Item Value Reference Range Interpretation Comments SURGICAL SPECIMENS (test code = SURG) --------RUN DATE: 12/31/20 [facility] - LAB PAGE 1 RUN TIME: 841 Specimen Inquiry RUN USER: INTERFACE --------PATIENT: ROSITA MARIE LOC: [facility] U #: [id number] AGE/SX: 30/F ROOM: [facility] RE12/26/20CLARY DR: Olegario Srivastava MD : 89 BED: 02 DIS: 12/26/20 STATUS: DIS Keira TLOC: -------- SPEC #: [id number] RECD: 12/26/203086 STATUS: MIKI MAI #: [id number] LAURYN: 12/26/20-1219 [facility] DR: Olegario Srivastava MD ENTERED: 12/26/20-144 SP TYPE: SURG OTHR DR: Rik Escobar [...] and its performance characteristics determined by the [facility]. It has not been cleared or approved by the US Food and Drug Administration. The FDA has determined that such clearance or approval is not necessary. The test is used for clinical purposes. It should not be regarded as investigational or for research. [facility] is certified under CLIA-88 (Clinical Laboratory Improvement [...] CONTINUED ON NEXT PAGE --------RUN DATE: 12/31/20 [facility] - LAB PAGE 2 RUN TIME: 841 Specimen Inquiry RUN USER: INTERFACE --------SPEC #: [id number] PATIENT: ROSITA MARIE #[id number] (Continued) FINAL DIAGNOSIS (Continued) C. STOMACH, FUNDUS, BIOPSY: - OXYNTIC MUCOSA WITH REACTIVE GASTROPATHY - NEGATIVE FOR HELICOBACTER PYLORI BY IMMUNOHISTOCHEMISTRY - NO INTESTINAL METAPLASIA, DYSPLASIA, OR MALIGNANCY IS IDENTIFIED CPT: 23490 x3, 20667 x3 GROSS DESCRIPTION Received are three containers [...] are submitted in toto in cassette C. /patrick MICROSCOPIC DESCRIPTION Performed. Signed SIGNATURE ON FILE Eladia Montelongo MD 12/31/20 0842 -------- END OF REPORT COVID Asymptomatic IH [id number] 10:52:00 Test Item Value Reference Interpretation Comments [...] i ts performancechar acteristics were determined by [facility]. Thi s test has notbeen FDA aslhey ared or approved. This test is authorized by t heA under Emergency Use Authorization(E UA). The EUA willremain in e ffect unless it is terminated o r revoked by FDA . Testing p arameters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 Reference Range Interpretation Comments HCG SERUM QUAL (test code = SERUM NEGATIVE NEGATIVE HCGQL) URINALYSIS [id number] 21:58:00 Test Item Value Reference Range Interpretation [...] NONE SEEN SQU) COMMENTS: Clean CatchCBC W/AUTO [id number] 21:54:00 Test Item Value Reference Range Interpretation [...] (test code NO = MDIFF) BASIC METABOLIC [id number] 16:03:00 Test Item Value Reference Range Interpretation [...] 8.9 mg/dL 8.0-10.5 N CA) HCG SERUM [id number] 16:03:00 Test Item Value Reference Range Interpretation Comments HCG SERUM QUAL (test code = SERUM NEGATIVE NEGATIVE HCGQL) CBC W/AUTO [id number] 16:00:00 Test Item Value Reference Range Interpretation [...] (test code NO = MDIFF) BASIC METABOLIC [id number] 15:57:00 Test Item Value Reference Range Interpretation [...] code = CA) mg/dL 8.0-10.5 HCG SERUM [id number] 15:57:00 Test Item Value Reference Range Interpretation Comments HCG SERUM QUAL (test code = SERUM NEGATIVE NEGATIVE HCGQL) - US TRANSVAGINAL NON [id number] 15:45:00 Name: ROSITA MARIE [facility] [place] : 1990 Age/S: 28 / F [address] [place] [address] Unit #: [id number] Loc: [place] [address] Phys: EDDOC GENERIC FOR EDM Acct: [id number] Dis Date: Status: REG ER PHONE #: [phone] Exam Date: 01/25/2019 1532 FAX #: [phone] Reason: PAIN.VB/PCOS EXAMS: CPT CODE: [id number] [place] [address] EXAMINATION: Pelvic ultrasound 01/25/2019. CLINICAL HISTORY: Pelvic pain, bleeding, PCOS. Patient has been bleeding since 5 months ago. COMPARISON: None. FINDINGS: Transabdominal and transvaginal pelvic ultrasound was performed. The uterus measures 73 x 34 x 49 mm. The endometrium measures 3 mm in AP diameter. No focal endometrial abnormalities are evident. No flow is seen in the endometrium on color Doppler imaging. No uterine leiomyomataare evident. The right ovary measures 41 x 20 x 36 mm and the left ovary measures 47 x 15 x 23 mm. Both ovaries demonstrate multiple small relatively uniform size follicles. Both ovaries demonstrate flow on Doppler evaluation. There is no evidence of extraovarian adnexal mass. No free fluid is presentin the pelvis. IMPRESSION: 1. 3 mm endometrium without focal abnormality. 2. The sonographic appearance of the ovaries is consistent with the clinical history of PCOS. 3. It is not known to me whether or not this patient is . There is no sonographic evidence of intrauterine or extrauterine gestation. at 5447 Reported andsigned by: Lidia Ramírez M.D. CC: Technologist: Tara Bunch RDMS(OB)(AB) Trnscb Date/Time: 01/25/2019 (1046) [facility] [place] Orig Print D/T: S: 01/25/2019 (6815) Probe: [id number] PAGE 1 Signed Report- US PELVIS COMPLETE 2019-01-25 15:45:00 Name: ROSITA MARIE : 1990 Age/S: 28 / F [address] [place] [address] Unit #: [id number] Loc: [place] [address] Phys: Carolyn Dodson Acct: [id number] Dis Date: Status: REGER PHONE #: [phone] Exam Date: 01/25/2019 153 FAX #: [phone] Reason: pelvic pain, bleeding, PCOS EXAMS: CPT CODE: [id number] US PELVIS COMPLETE 42487 EXAMINATION: Pelvic ultrasound 01/25/2019. CLINICAL HISTORY: Pelvic pain, bleeding, PCOS. Patient has been bleeding since 5 months ago. COMPARISON: None. FINDINGS: Transabdominal and transvaginal pelvic ultrasound was performed. The uterus measures 73 x 34 x 49 mm. The endometrium measures 3 mm in AP diameter. No focal endometrialabnormalities are evident. No flow is seen in [...] history of PCOS. 3. It is not known to me whether or not this patient is . There is no sonographic evidence of intrauterine or extrauterine gestation. at 9544 Reported and signed by: Lidia Ramírez M.D. CC: Carolyn DEVLIN Technologist: Tara Bunch RDMS(OB)(AB) Trnscb Date/Time: 01/25/2019 (7249) [facility] [place] Orig Print D/T: S: 01/25/2019 (1914) Probe:PAGE 1 Signed Report COMPREHENSIVE DRUG [id number] 13:52:00 Test Item Value Reference Range Interpretation Comments DRUG TOXICOLOGY SEE HARD COPY FAX TO (test code = DRUG) REPORT
[2022-06-29 00:55] LABS: Hematocrit 41.3 % (36.0-45.0); MCV 93.4 fL (80-100); MPV 7.2 fL (7.6-11.3); RBC Red Blood Cell Count 4.42 M/uL (3.86-4.86)
[2022-06-29 00:56] LABS: Protime INR 0.87
[2022-06-29] MEDS ORDERED: FENTANYL CITR 100 MCG/2 ML ONE (01:02)
[2022-06-29] MEDS ORDERED: NA CHLORIDE 0.9% 1,000 ML ONE (01:02)
[2022-06-29] MEDS ORDERED: ONDANSETRON 4 MG/2 ML VIAL ONE (01:02)
[2022-06-29 01:11] LABS: ALT/SGPT 29 U/L (12-78); AST/SGOT 20 U/L (15-37); Albumin 4.1 g/dL (3.4-5.0); Alkaline Phosphatase 68 U/L (45-117); BUN Blood Urea Nitrogen 13 mg/dL (7-18); Bicarbonate 25 mmol/L (21-32); Bilirubin Total 0.3 mg/dL (0.2-1.0); Glomerular Filtration Rate 113 ml/min (=/>90); Glucose Level 88 mg/dL (74-106); Lipase 176 U/L (73-393); NT PRO-BNP 67 pg/mL (<125); Potassium 4.1 mmol/L (3.5-5.1); Protein, Total 7.9 g/dL (6.4-8.2); Sodium Level 139 mmol/L (136-145); Troponin High Sensitivity 3.6 pg/mL (<58.9)
[2022-06-29 01:22] LABS: Bilirubin Direct < 0.1 mg/dL (0-0.2)
--- NOTE | 2022-06-29 02:40 | ER ---
Nurse's Notes [facility] Name: Lona Marie Age: 32 yrs Sex: Female : 1990 Arrival Date: 06/28/2022 Time: 22:57 Bed 17 Private MD: Diagnosis: Strain of muscle and tendon of back wall of thorax;Strain of muscle and tendon of front wall of thorax Presentation: 06/28 23:03 Chief complaint: Patient states: "I have had multiple biopsies of my breasts in the last few months and they are going to do a mastectomy soon, I had to scrap picker my daughter today and now I have severe pain in my right breast that radiates to my back.". Coronavirus screen: At this time, the client does not indicate any symptoms associated with coronavirus-19. Ebola Screen: No symptoms or risks identified at this time. Initial Sepsis Screen: Does the patient meet any 2 criteria? No. Patient's initial sepsis screen is negative. Does the patient have a suspected source of infection? No. Patient's initial sepsis screen is negative. Risk Assessment: Do you want to hurt yourself or someone else? Patient reports no desire to harm self or others. Onset of symptoms was June 28, 2022. 23:03 Method Of Arrival: Ambulatory 23:03 Acuity: SMITH 3 hb Triage Assessment: 23:59 General: Appears in no apparent distress. uncomfortable, Behavior is calm, cooperative. lg3 Pain: Complains of pain in right breast Pain radiates to back Pain currently is 8 out of 10 on a pain scale. EENT: No deficits noted. No signs and/or symptoms were reported regarding the EENT system. Neuro: No deficits noted. Cool Agitation-Sedation Scale (RASS): 0 - Alert and Calm Level of Consciousness is awake, alert, obeys commands, Oriented to person, place, time, situation. Cardiovascular: No deficits noted. Denies chest pain, shortness of breath, Capillary refill < 3 seconds Clubbing of nail beds is absent JVD is absent Patient's skin is warm and dry. Respiratory: No deficits noted. Airway is patent Trachea midline Respiratory effort is even, unlabored, Respiratory pattern is regular, symmetrical, Breath sounds are clear bilaterally. GI: No deficits noted. No signs and/or symptoms were reported involving the gastrointestinal system. Abdomen is flat, non-distended, Bowel sounds present X 4 quads. Abd is soft and non tender X 4 quads. : No deficits noted. No signs and/or symptoms were reported regarding the genitourinary system. Derm: Skin is intact, is healthy with good turgor, Skin is dry, Skin is normal, Skin temperature is warm. Musculoskeletal: No deficits noted. No signs and/or symptoms reported regarding the musculoskeletal system. Circulation, motion, and sensation intact. Range of motion: intact in all extremities. 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 LMP N/A - Hysterectomy lg3 Historical: - Allergies: 23:05 Amoxicillin; hb 23:05 Doxycycline; hb 23:05 Lamictal; hb 23:05 Latex, Natural Rubber; hb 23:05 PENICILLINS; hb 23:05 Reglan; hb 23:05 Toradol; hb 23:05 tramadol; hb 23:05 Trazodone; hb 23:54 Demerol; lg3 23:54 Adhesives; lg3 - Home Meds: 23:54 Flexeril 10 mg Oral tab 1 tab 3 times per day [Active]; meloxicam 15 mg oral tab 1 tab lg3 once daily [Active]; pregabalin 150 mg Oral cap 1 cap 2 times per day [Active]; diazepam 10 mg Oral tab 1 tab 2 times per day [Active]; [place] 10-325 mg Oral tab every 4-6 hours [Active]; oxycodone 10 mg Oral tab 1 tab every 6 hours [Active]; keppra 500 mg BID [Active]; - PMHx: 23:05 cervical spine nerve damage; 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 - Social history:: Smoking status: Patient reports the use of cigarette tobacco products, denies chronic smoking, but will smoke occasionally, Patient uses alcohol, occasionally. - Family history:: not pertinent. Screenin:58 Abuse screen: Denies threats or abuse. Denies injuries from another. Nutritional lg3 screening: No deficits noted. Tuberculosis screening: No symptoms or risk factors identified. Fall Risk None identified. Assessment: 23:30 General: Appears in no apparent distress. uncomfortable, Behavior is calm, cooperative. lg3 Pain: Complains of pain in right breast Pain radiates to back. Neuro: No deficits noted. Cool Agitation-Sedation Scale (RASS): 0 - Alert and Calm Level of Consciousness is awake, alert, obeys commands, Oriented to person, place, time, situation. Cardiovascular: No deficits noted. Denies chest pain, shortness of breath, Capillary refill < 3 seconds Clubbing of nail beds is absent JVD is absent Patient's skin is warm and dry. Respiratory: No deficits noted. Airway is patent Trachea midline Respiratory effort is even, unlabored, Respiratory pattern is regular, symmetrical, Breath sounds are clear bilaterally. GI: No deficits noted. No signs and/or symptoms were reported involving the gastrointestinal system. Abdomen is round non-distended, Abd is soft and non tender X 4 quads. : No deficits noted. No signs and/or symptoms were reported regarding the genitourinary system. EENT: No deficits noted. No signs and/or symptoms were reported regarding the EENT system. Derm: No deficits noted. Skin is intact, is healthy with good turgor, Skin is dry, Skin is normal, Skin temperature is warm. Musculoskeletal: No deficits noted. No signs and/or symptoms reported regarding the musculoskeletal system. Circulation, motion, and sensation intact. Range of motion: intact in all extremities. 06/29 02:38 Reassessment: Patient appears in no apparent distress at this time. No changes from lg3 previously documented assessment. Patient and/or family updated on plan of care and expected duration. Pain level reassessed. Patient is alert, oriented x 3, equal unlabored respirations, skin warm/dry/pink. Vital Signs: 06/28 23:03 BP 160 / 105; Pulse 93; Resp 18; Temp 98.7; Pulse Ox 96% on R/A; Weight 64.86 kg; hb Height 5 ft. 3 in. (160.02 cm); Pain 06/15; 06/29 02:38 BP 118 / 82; Pulse 90; Resp 20; Pulse Ox 98% on R/A; lg3 03:08 BP 126 / 81; Pulse 96; Resp 21; Pulse Ox 99% on R/A; lg3 06/28 23:03 Body Mass Index 25.33 (64.86 kg, 160.02 cm) hb ED Course: 06/28 22:57 Patient arrived in ED. ja2 23:05 Triage completed. hb 23:05 Arm band placed on. hb 23:15 Susan Nava, RN is Primary Nurse. lg3 23:15 Aj Doe MD is Attending Physician. peg 23:58 Patient has correct armband on for positive identification. Placed in gown. Bed in low lg3 position. Call light in reach. Side rails up X 1. Client placed on continuous cardiac and pulse oximetry monitoring. NIBP monitoring applied. recreation therapy director on. Door closed. Noise minimized. Warm blanket given. 06/29 00:18 XRAY Chest (1 view) In Process Unspecified. EDMS 00:35 Initial lab(s) drawn, by me, sent to lab. Inserted saline lock: 20 gauge in left tw5 antecubital area, using aseptic technique. Blood collected. Inserted ulrasound IV. 00:40 Lipase Sent. tw5 00:40 Basic Metabolic Panel Sent. tw5 00:40 CBC with Diff Sent. tw5 00:40 LFT's Sent. tw5 00:40 Magnesium Sent. tw5 00:40 NT PRO-BNP Sent. tw5 00:40 PT-INR Sent. tw5 00:40 Troponin HS Sent. tw5 01:50 CT Chest For PE Angio In Process Unspecified. EDMS 03:08 No provider procedures requiring assistance completed. IV discontinued, intact, lg3 bleeding controlled, No redness/swelling at site. Pressure dressing applied. Administered Medications: 01:07 Drug: NS 0.9% 1000 ml Route: IV; Rate: 1 bolus; Site: left antecubital; lg3 03:07 Follow up: Response: No adverse reaction; IV Status: Completed infusion; IV Intake: lg3 1000ml 01:07 Drug: fentaNYL (PF) 50 mcg Route: IVP; Site: left antecubital; lg3 03:07 Follow up: Response: No adverse reaction; No change in condition; Pain is unchanged, lg3 physician notified 01:07 Drug: Zofran (Ondansetron) 4 mg Route: IVP; Site: left antecubital; lg3 03:07 Follow up: Response: No adverse reaction lg3 03:07 Drug: Dilaudid (HYDROmorphone) 2 mg Route: IVP; Site: left antecubital; lg3 03:08 Follow up: Response: No adverse reaction; Marked relief of symptoms lg3 Medication: 03:08 VIS not applicable for this client. lg3 Intake: 03:07 IV: 1000ml; Total: 1000ml. lg3 Outcome: 02:39 Discharge ordered by . peg 03:08 Discharged to home ambulatory. lg3 03:08 Condition: stable 03:08 Discharge instructions given to patient, Instructed on discharge instructions, follow up and referral plans. medication usage, Demonstrated understanding of instructions, follow-up care, medications, Prescriptions given X 1. 03:09 Patient left the ED. lg3 Signatures: Dispatcher [employer] EDMS Aj Doe MD MD cha Baxter, Heather, RN RN Susan Ceron RN RN lg3 Salud Robins Tiffany 5 Corrections: (The following items were deleted from the chart) 06/28 23:58 23:05 Allergies: Clindamycin; lg3
--- NOTE | 2022-06-29 02:40 | EDPHYS ---
Physician Documentation [facility] Name: Lona Marie Age: 32 yrs Sex: Female : 1990 Arrival Date: 06/28/2022 Time: 22:57 Bed 17 Private MD: GUNJAN Physician Aj Doe HPI: 06/29 00:46 This 32 yrs old Female presents to ER via Ambulatory with complaints of peg Breast Problem, Back Pain. 00:46 The patient presents with pain that is acute, with no known mechanism of injury. The peg symptoms are located in the right scapular area, right subscapular area and thoracic area. Onset: The symptoms/episode began/occurred 2 day(s) ago. The pain radiates to the right scapular area and right subscapular area. Associated signs and symptoms: Pertinent positives: chest pain. The problem was sustained when lifting baby. Modifying factors: The patient symptoms are alleviated by remaining still, the patient symptoms are aggravated by lifting, nothing. Severity of symptoms: At their worst the symptoms were mild, moderate, in the emergency department the symptoms are unchanged. The patient has experienced similar episodes in the past, several times. 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 LMP N/A - Hysterectomy lg3 Historical: - Allergies: 23:05 Amoxicillin; hb 23:05 Doxycycline; hb 23:05 Lamictal; hb 23:05 Latex, Natural Rubber; hb 23:05 PENICILLINS; hb 23:05 Reglan; hb 23:05 Toradol; hb 23:05 tramadol; hb 23:05 Trazodone; hb 23:54 Demerol; lg3 23:54 Adhesives; lg3 - Home Meds: 23:54 Flexeril 10 mg Oral tab 1 tab 3 times per day [Active]; meloxicam 15 mg oral tab 1 tab lg3 once daily [Active]; pregabalin 150 mg Oral cap 1 cap 2 times per day [Active]; diazepam 10 mg Oral tab 1 tab 2 times per day [Active]; Hamilton 10-325 mg Oral tab every 4-6 hours [Active]; oxycodone 10 mg Oral tab 1 tab every 6 hours [Active]; keppra 500 mg BID [Active]; - PMHx: 23:05 cervical spine nerve damage; 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 - Social history:: Smoking status: Patient reports the use of cigarette tobacco products, denies chronic smoking, but will smoke occasionally, Patient uses alcohol, occasionally. - Family history:: not pertinent. ROS: 06/29 00:46 Constitutional: Negative for fever, chills, and weight loss, Eyes: Negative for injury, peg pain, redness, and discharge, ENT: Negative for injury, pain, and discharge, Neck: Negative for injury, pain, and swelling, Abdomen/GI: Negative for abdominal pain, nausea, vomiting, diarrhea, and constipation, Back: Negative for injury and pain, : Negative for injury, bleeding, discharge, and swelling, MS/Extremity: Negative for injury and deformity, Skin: Negative for injury, rash, and discoloration, Neuro: Negative for headache, weakness, numbness, tingling, and seizure, Psych: Negative for depression, anxiety, suicide ideation, homicidal ideation, and hallucinations, Allergy/Immunology: Negative for hives, rash, and allergies, Endocrine: Negative for neck swelling, polydipsia, polyuria, polyphagia, and marked weight changes, Hematologic/Lymphatic: Negative for swollen nodes, abnormal bleeding, and unusual bruising. Cardiovascular: Positive for chest pain. Respiratory: Positive for cough. Back: Positive for pain at rest, of the right scapular area and right subscapular area. Exam: 00:46 Constitutional: This is a well developed, well nourished patient who is awake, alert, peg and in no acute distress. Head/Face: Normocephalic, atraumatic. Eyes: Pupils equal round and reactive to light, extra-ocular motions intact. Lids and lashes normal. Conjunctiva and sclera are non-icteric and not injected. Cornea within normal limits. Periorbital areas with no swelling, redness, or edema. ENT: Nares patent. No nasal discharge, no septal abnormalities noted. Tympanic membranes are normal and external auditory canals are clear. Oropharynx with no redness, swelling, or masses, exudates, or evidence of obstruction, uvula midline. Mucous membranes moist. Neck: Trachea midline, no thyromegaly or masses palpated, and no cervical lymphadenopathy. Supple, full range of motion without nuchal rigidity, or vertebral point tenderness. No Meningismus. Cardiovascular: Regular rate and rhythm with a normal S1 and S2. No gallops, murmurs, or rubs. Normal PMI, no JVD. No pulse deficits. Respiratory: Lungs have equal breath sounds bilaterally, clear to auscultation and percussion. No rales, rhonchi or wheezes noted. No increased work of breathing, no retractions or nasal flaring. Abdomen/GI: Soft, non-tender, with normal bowel sounds. No distension or tympany. No guarding or rebound. No evidence of tenderness throughout. Back: No spinal tenderness. No costovertebral tenderness. Full range of motion. Female : Normal external genitalia. Skin: Warm, dry with normal turgor. Normal color with no rashes, no lesions, and no evidence of cellulitis. MS/ Extremity: Pulses equal, no cyanosis. Neurovascular intact. Full, normal range of motion. Neuro: Awake and alert, GCS 15, oriented to person, place, time, and situation. Cranial nerves II-XII grossly intact. Motor strength 5/5 in all extremities. Sensory grossly intact. Cerebellar exam normal. Normal gait. Psych: Awake, alert, with orientation to person, place and time. Behavior, mood, and affect are within normal limits. 00:46 Chest/axilla: Inspection: rash, that is mild, Palpation: tenderness, that is moderate, of the anterior aspect of right upper chest, right lateral posterior chest, right lateral anterior chest and right breast. 00:46 ECG was reviewed by the Attending Physician. 00:46 Musculoskeletal/extremity: DVT Exam: No signs of deep vein thrombosis. no pain, no swelling, no tenderness, negative Homans' sign noted on exam, no appreciated bluish discoloration, no erythema, no increased warmth. Vital Signs: 06/28 23:03 BP 160 / 105; Pulse 93; Resp 18; Temp 98.7; Pulse Ox 96% on R/A; Weight 64.86 kg; hb Height 5 ft. 3 in. (160.02 cm); Pain 06/15; 06/29 02:38 BP 118 / 82; Pulse 90; Resp 20; Pulse Ox 98% on R/A; lg3 03:08 BP 126 / 81; Pulse 96; Resp 21; Pulse Ox 99% on R/A; lg3 06/28 23:03 Body Mass Index 25.33 (64.86 kg, 160.02 cm) hb MDM: 06/28 23:17 Patient medically screened. [facility] 06/29 02:40 Differential diagnosis: Basilar Pneumonia Osteoarthritis Scoliosis. Data reviewed: [facility] vital signs, nurses notes, lab test result(s), EKG, radiologic studies, CT scan, plain films. Data interpreted: court recording monitor: rate is 90 beats/min, rhythm is regular, Pulse oximetry: on room air is 98 %. Test interpretation: by ED physician or midlevel provider: ECG, plain radiologic studies. Counseling: I had a detailed discussion with the patient and/or guardian regarding: the historical points, exam findings, and any diagnostic results supporting the discharge/admit diagnosis, lab results, radiology results, the need for outpatient follow up, for definitive care, a family practitioner. 06/28 23:17 Order name: Basic Metabolic Panel; Complete Time: 01:30 [facility] 06/28 23:17 Order name: CBC with Diff; Complete Time: 01:30 [facility] 06/28 23:17 Order name: LFT's; Complete Time: 01:30 [facility] 06/28 23:17 Order name: Magnesium; Complete Time: 01:30 [facility] 06/28 23:17 Order name: NT PRO-BNP; Complete Time: 01:30 [facility] 06/28 23:17 Order name: PT-INR; Complete Time: 01:30 [facility] 06/28 23:17 Order name: Troponin HS; Complete Time: 01:30 [facility] 06/28 23:17 Order name: XRAY Chest (1 view) [facility] 06/28 23:17 Order name: CT Chest For PE Angio [facility] 06/28 23:17 Order name: Lipase; Complete Time: 01:30 [facility] 06/28 23:17 Order name: EKG; Complete Time: 23:18 [facility] 06/28 23:17 Order name: Cardiac monitoring; Complete Time: 00:02 [facility] 06/28 23:17 Order name: EKG - Nurse/Tech; Complete Time: 00:02 [facility] 06/28 23:17 Order name: IV Saline Lock; Complete Time: 00:40 [facility] 06/28 23:17 Order name: Labs collected and sent; Complete Time: 00:40 [facility] 06/28 23:17 Order name: O2 Per Protocol; Complete Time: 00:02 peg 06/28 23:17 Order name: O2 Sat Monitoring; Complete Time: 00: peg EC:46 Rate is 93 beats/min. Rhythm is regular. QRS [place] is Normal. SD interval is normal. QRS peg interval is normal. QT interval is normal. No Q waves. T waves are Normal. No ST changes noted. Clinical impression: Normal ECG and No evidence of ischemia. Interpreted by me. Reviewed by me. Administered Medications: 01:07 Drug: NS 0.9% 1000 ml Route: IV; Rate: 1 bolus; Site: left antecubital; lg3 03:07 Follow up: Response: No adverse reaction; IV Status: Completed infusion; IV Intake: lg3 1000ml 01:07 Drug: fentaNYL (PF) 50 mcg Route: IVP; Site: left antecubital; lg3 03:07 Follow up: Response: No adverse reaction; No change in condition; Pain is unchanged, lg3 physician notified 01:07 Drug: Zofran (Ondansetron) 4 mg Route: IVP; Site: left antecubital; lg3 03:07 Follow up: Response: No adverse reaction lg3 03:07 Drug: Dilaudid (HYDROmorphone) 2 mg Route: IVP; Site: left antecubital; lg3 03:08 Follow up: Response: No adverse reaction; Marked relief of symptoms lg3 Disposition Summary: 06/29/22 02:39 Discharge Ordered Location: Home peg Problem: new peg Symptoms: have improved peg Condition: Fair peg Diagnosis - Strain of muscle and tendon of back wall of thorax peg - Strain of muscle and tendon of front wall of thorax peg Followup: peg - With: Private Physician - When: 2 - 3 days - Reason: Recheck today's complaints, Continuance of care, Re-evaluation by your physician Discharge Instructions: - Discharge Summary Sheet peg - Chest Wall Pain peg - Musculoskeletal Pain peg - Chest Wall Pain, [id number] peg Forms: - Medication Reconciliation Form peg - Thank You Letter peg - Antibiotic Education peg - Prescription Opioid Use peg Prescriptions: - Tylenol-Codeine #3 300 mg-30 mg Oral - take 2 tablet by ORAL route every 6 hours; 20 tablet; Refills: 0, Product peg Selection Permitted Signatures: Dispatcher [employer] EDAj Khan MD MD cha Baxter, Heather, RN RN Susan Nava RN RN lg3 Corrections: (The following items were deleted from the chart) 06/28 23:58 23:05 Allergies: Clindamycin; radha lg3
[2022-06-29] MEDS ORDERED: HYDROMORPHONE HCL 2 MG/ML inj ONE (02:57)
[2022-06-29 03:34] VITALS: TEMP 98.7
[2022-06-29 03:37] VITALS: BP 126/81; O2SAT 99
--- NOTE | 2022-06-29 18:37 | EKG ---
Test Date: 2022-06-28 Test Time: 23:41:04 Certified Registered Nurse Anesthetist: MEASUREMENT RESULTS: Intervals: Rate: 93 [place]: 136 QRSD: 66 QT: 342 QTc: 425 [place]: P: 58 OH: 136 QRS: 87 T: 56 INTERPRETIVE STATEMENTS: Normal sinus rhythm Normal ECG Compared to ECG 06/28/2022 23:39:55 No significant changes Electronically Signed On 06-29-22 18:35:58 CDT by Alan Owen
--- NOTE | 2022-06-29 18:37 | EKG ---
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
--- NOTE | 2022-06-30 08:17 | RAD REPORT ---
EXAM DESCRIPTION: Chest Single View CLINICAL HISTORY: 32 years Female, CHEST PAIN COMPARISON: None FINDINGS: No focal lung consolidation. No pleural effusion. No pneumothorax. Cardiomediastinal silhouette is within normal limits. No acute osseous abnormality. IMPRESSION: No acute cardiopulmonary disease. Electronically signed by: Kayode Khan DO 06/29/2022 12:26 AM CDT Due to temporary technical issues with the PACS/Fluency reporting system, reports are being signed by the in house radiologists without review as a courtesy to insure prompt reporting. The interpreting radiologist is fully responsible for the content of the report
--- NOTE | 2022-06-30 08:45 | RAD REPORT ---
EXAM DESCRIPTION: Chest For Pe Angio CLINICAL HISTORY: Chest pain COMPARISON: Chest 1 View AP 06/29/2022 at 12:12 AM TECHNIQUE: Chest CTA axial images acquired with IV contrast. Coronal and sagittal CTA MIPs and MPRs created. Exam performed according to departmental dose-optimization program which includes automated exposure control, adjustment of mA and/or kV according to patient size, and/or use of iterative recon struction technique. FINDINGS: Heart size normal. No pericardial effusion. Thoracic aorta unremarkable without evidence of dissection, aneurysm, or atherosclerotic plaque. No evidence of pulmonary embolism. Central tracheobronchial tree unremarkable. No consolidation, lung mass, or significant pulmonary edema. Mild dependent atelectasis. Accessory azygos lobe (normal variant). No pleural effusion or pneumothorax. Bones unremarkable. IMPRESSION: Unremarkable CTA chest with contrast Electronically signed by: Ray Mixon MD 06/29/2022 2:21 AM CDT Due to temporary technical issues with the PACS/Fluency reporting system, reports are being signed by the in house radiologists without review as a courtesy to insure prompt reporting. The interpreting radiologist is fully responsible for the content of the report.
== END 2022-06-29 03:09 | disposition home or self-care (01) ==
LOC: ER 22:50
DX: S29.011A Strain of muscle and tendon of front wall of thorax, initial encounter (principal); S29.012A Strain of muscle and tendon of back wall of thorax, initial encounter; F17.210 Nicotine dependence, cigarettes, uncomplicated; Z88.0 Allergy status to penicillin; Z88.1 Allergy status to other antibiotic agents; Z88.5 Allergy status to narcotic agent; Z88.8 Allergy status to other drugs, medicaments and biological substances; Z91.040 Latex allergy status; Z91.048 Other nonmedicinal substance allergy status
CPT/HCPCS: 96361; 93005 ×2; 85025; 80048; 36415; 83735; 85610; 80076; 84484; 83690; 83880; 71275; 71045; 96375; 96374; 99284; Q9967; J1170; J3010; J7030; J2405

== ENCOUNTER 2022-07-17 10:08 | Emergency (ER) | payer OTHER ==
--- OUTSIDE RECORDS SUMMARY | 2022-07-17 10:18 | XMS REPORT | Continuity of Care Document ---
:1990 Author Organization [facility] t Address [address] [place] [address] Support Name Relationship Address Phone ANITA CLEVELAND SP [address] [facility] [place] [phone] ANITA CLEVELAND SP [address] [place] [phone] VIVIANA CLEVELAND Significant [address] [facility] [facility] Unavaila ble [place] [id number] JOSE JUAN JEAN BAPTISTE F [address] [place] [id number] Viviana Thompson Significant Other [address] [place] [phone] Zay Yanes Significant Other [address] [place] [phone] [place] [id number] LONA JEAN BPATISTE Unavailable . [phone] [place] [phone] ANGELLA C[place]AND [BF] Unavailable [address] [facility] [phone] [place] [phone] ANGELLA C[place]AND LP [address] [facility] [phone] [place] [id number] NOONE, ELSE Unavailable [address] [facility] [phone] [place] [phone] NONE, PERSON OT [address] [place] [phone] VIVIANA C[place]AND Unavailable [address] [place] [phone] JOSE JUAN JEAN BAPTISTE Unavailable [address] [phone] [place] [id number] NONE, TOHER Unavailable [address] [facility] [phone] [place] [address] Care Team Providers Name Role Phone Vivian HUYNH, Yoseph Mendez Primary Care Physician [phone] Rik Escobar Attending Clinician Unavailable LISHA FOSTER Attending Clinician Unavailable ELBERT DILL Attending Clinician Unavailable Jorge Luis Mcdonnell MD Attending Clinician Vivian HUYNH, Yoseph Mendez Attending Clinician [phone] Michi Kelley MD Attending Clinician Yoseph Borges MD Attending Clinician [phone] Doctor Unassigned, [place] Attending Clinician Unavailable DONTA QIU Attending Clinician Unavailable Donta Qiu MD Attending Clinician MILADYS MEDINA Attending Clinician Unavailable Miladys Medina MD Attending Clinician Hung Piña Attending Clinician Unavailable EDDOC, GENERIC FOR EDM Attending Clinician Unavailable AWILDA PÉREZ Attending Clinician [...] Unavailable MAO GRUBBS M.D. Attending Clinician Unavailable [facility], [facility] Attending Clinician Unavailable Perri Duffy Attending [...] Type Policy Number Effective Date Expiration Date Evelin mario FORMERLY [facility] [id number] 2018 CHOICE MEDICAID 00:00:00 Problems Condition Condition Condition Status Onset Resolution Last Treating Co mments Source Name Details Category Date Date Treatment Clinician Date Abdominal Abdominal Disease Active Uni vers pain pain 6-26 ity of 00:00: Medical Branch Inadequate Inadequate Disease Active U nivers pain pain 6-25 ity of control control 00:00: [place] [facility] Pain of Pain of Disease Active Univers female female 5-23 [place] of genital[place] Pain Pain Disease Active Overview: Univer s pelvic pelvic 5-22 Formattin ity of 00:00: g of this [place] note Medical might be Branch different from the original. Added automatic ally from request for surgery [id number] Irregular Irregular Disease Active Uni vers menstrual menstrual 5-14 ity of cycle cycle 00:00: [place] [facility] Abnormal Abnormal Disease Active Unive rs vaginal vaginal 5-14 ity of bleeding bleeding 00:00: [place] [facility] Depo-Prove Depo-Prove Disease Active U nivers ra ra 5-14 [place]y of contracept [place]pt [place] du[place] status 00 Il dical Branch PCOS PCOS Disease Active Univers (polycysti (polycysti 5-14 [place] y of c ovarian c ovarian [place] syndrome[place] syndrome[place] 00 [facility] Screen for Screen for Disease Active U nivers STD STD 2-06 ity of (sexually (sexually 00:[place] transmit[place] transmitte 00 Me dical d disease) d disease) Br anch BMI BMI Disease Active Univers 28.0-28.9, 28.0-28.9, 2-06 it y of adult adult 00:00: [place] [address] Medical Branch Over Over Disease Active Univers weight weight 2-06 ity of 00:00: [place] [facility] History of History of Disease Active U nivers seizures seizures 2-06 ity of 00:00: [place] 00 Medical Branch History of History of Problem [...] ents Source Name Type Date Date Clinician Meperidi Propensi Active Rash 2020-09 Univer s ne ty to 09-22 ity of adverse 00:00: [place] reaction 00 Medical s Branch MEPERIDI DRUG Active Rash 2020-09 Univers NE INGREDI 09-22 ity of 00:00: [place] 00 [facility] Latex, DA Active U [facility] Natural 12-27 [place] Rubber 00:00: [facility] doxycycl DA Active U [facility] ine 12-27 [place] 00:00: [facility] amoxicil DA Active U [facility] jami 12-27 [place] 00:00: [facility] tramadol DA Active U 0 [facility] - [place] 00:00: [facility] metoclop DA Active U 0 [facility] ramide 12-27 [place] 00:00: [facility] ketorola DA Active U 0 [facility] c - [place] 00:00: [facility] Latex, DA Active U RASH 0 [facility] Natural 12-27 [place] Rubber 00:00: [facility] 00 [facility] doxycycl DA Active U RASH, THROAT 0 HC A ine SWELLING 12-27 [place] 00:00: [facility] amoxicil DA Active U RASH, THROAT 2020-0 HC A jami SWELLING 12-27 [place] 00:00: [facility] 00 [facility] tramadol DA Active U RASH, THROAT 2020-0 HC A SWELLING 12-27 [place] 00:00: [facility] 00 [facility] metoclop DA Active U RASH, THROAT 2020-0 HC A ramide SWELLING 4-23 [place] 00:00: [facility] ketorola DA Active U RASH, THROAT 2020-0 HC A c SWELLING - [place] 00:00: [facility] Penicill DA Active SV 2020-1 [facility] ins 2-18 [place] 00:00: [facility] doxycycl DA Active SV 2020-1 [facility] ine 2-18 [place] 00:00: [facility] adhesive DA Active SV 2020-1 [facility] tape 2-18 [place] 00:00: [facility] amoxicil DA Active SV 2020-1 [facility] jami 2-18 [place] 00:00: [facility] lamotrig DA Active SV 2020-1 [facility] ine 2-18 [place] 00:00: [facility] tramadol DA Active SV 2020-1 [facility] 2-18 [place] 00:00: [facility] trazodon DA Active SV 2020-1 [facility] e 2-18 [place] 00:00: [facility] 00 [facility] metoclop DA Active SV 2020-1 [facility] ramide 2-18 [place] 00:00: [facility] ketorola DA Active SV 2020-1 [facility] c 2-18 [place] 00:00: [facility] latex DA Active SV 2020-1 [facility] 2-18 [place] 00:00: [facility] Penicill DA Active SV rash 2020-1 [facility] ins 2-18 [place] 00:00: [facility] doxycycl DA Active SV rash 2020-1 [facility] ine 2-18 [place] 00:00: [facility] adhesive DA Active SV raya 2020-1 [facility] tape 2-18 [place] 00:00: [facility] amoxicil DA Active SV rash 2020-1 [facility] jami 2-18 [place] 00:00: [facility] lamotrig DA Active SV rash, sob, 2020-1 [facility] tramadol DA Active SV hives 2020-1 [facility] 2-18 [place] 00:00: [facility] trazodon DA Active SV rash 2020-1 [facility] e 2-18 [place] 00:00: [facility] metoclop DA Active SV rash 2020-1 [facility] ramide 2-18 [place] 00:00: [facility] 00 are [facility] ketorola DA Active SV hives 2020-1 [facility] c 2-18 [place] 00:00: [facility] latex DA Active SV raya 2020-1 [facility] 2-18 [place] 00:00: [facility] ketorola DA Active U 2020-1 [facility] c 2-10 [place] 00:00: [place] 00 [facility] latex DA Active [place] 2020-1 [facility] 2-10 Clear 00:00: [place] 00 [facility] Penicill DA Active U 2020-1 [facility] ins 2-10 Clear 00:00: [place] 00 [facility] doxycycl DA Active U 2020-1 [facility] ine 2-10 Clear 00:00: [place] 00 [facility] adhesive DA Active [place] 2020-1 [facility] tape 2-10 Clear 00:00: [place] 00 [facility] amoxicil DA Active U 2020-1 [facility] jami 2-10 Clear 00:00: [place] 00 [facility] Penicill DA Active U RASH 2020-1 [facility] ins 2-10 Clear 00:00: [place] 00 [facility] doxycycl DA Active U RASH 2020-1 [facility] ine 2-10 Clear 00:00: [place] 00 [facility] adhesive DA Active FL RASH 2020-1 [facility] tape 2-10 Clear 00:00: [place] 00 [facility] amoxicil DA Active U RASH 2020-1 [facility] jami 2-10 Clear 00:00: [place] 00 [facility] lamotrig DA Active FL 2020-1 [facility] ine 2-10 Clear 00:00: [place] 00 [facility] lamotrig DA Active FL RASH 2020-1 [facility] ine 2-10 Clear 00:00: [place] 00 [facility] tramadol DA Active U SHORTNESS OF 2020-1 HC A BREATH 2-10 Clear 00:00: [place] 00 [facility] trazodon DA Active U RASH-UNKNOWN 2020-1 HC A e 2-10 Clear 00:00: [place] 00 [facility] metoclop DA Active SV SHORTNESS OF 2020-1 HC A ramide BREATH 2-10 Clear 00:00: [place] 00 [facility] ketorola DA Active U RASH 2020-1 [facility] c 2-10 Clear 00:00: [place] 00 [facility] latex DA Active [place] RASH 2020-1 [facility] 2-10 Clear 00:00: [place] 00 [facility] tramadol DA Active U 2020- [facility] 2-10 Clear 00:00: [place] 00 [facility] trazodon DA Active U 2020- [facility] e 2-10 Clear 00:00: [place] 00 [facility] metoclop DA Active SV 2020-1 [facility] ramide 2-10 Clear 00:00: [place] 00 [facility] Penicill DA Active U 2018- [facility] ins 2-11 Clear 00:00: [place] 00 [facility] doxycycl DA Active U 2018- [facility] ine 2-11 Clear 00:00: [place] 00 [facility] amoxicil DA Active U 2018- [facility] jami 2-11 Clear 00:00: [place] 00 [facility] lamotrig DA Active FL 2018- [facility] ine 2-11 Clear 00:00: [place] 00 [facility] tramadol DA Active U 2018- [facility] 2-11 Clear 00:00: [place] 00 [facility] trazodon DA Active U 2018- [facility] e 2-11 Clear 00:00: [place] 00 [facility] meperidi DA Active U 2018-1 [facility] ne 2-11 Clear 00:00: [place] 00 [facility] metoclop DA Active SV 2018- [facility] ramide 2-11 Clear 00:00: [place] 00 [facility] ketorola DA Active U 2018-1 [facility] c 2-11 Clear 00:00: [place] 00 [facility] latex DA Active MO 2018-1 [facility] 2-11 Clear 00:00: [place] 00 [facility] ketorola DA Active U RASH 2018-1 [facility] c 2-11 [facility] [place] latex DA Active [place] RASH 2018-1 [facility] 2-11 [facility] [place] Penicill DA Active U RASH 2018-1 [facility] ins 2-11 [facility] 00:[facility]: [facility] [place] doxycycl DA Active U RASH 2018-1 [facility] ine 2-11 [facility] 00:[facility]: [facility] [place] amoxicil DA Active U RASH 2018-1 [facility] jami 2-11 [facility] 00:[facility]: [facility] [place] lamotrig DA Active FL RASH 2018-1 [facility] ine 2-11 [facility] 00:00: [facility]osp[facility] 00 [...] 00 l [facility] [place] TAPE DA Active FL RASH 2017-09 [facility] 1-04 Clear 00:00: [place] 00 [facility] Penicill DA Active U 2017-09 [facility] ins - [facility] 00:[facility]: [facility] [place] doxycycl DA Active U 2017-09 [facility] ine - [facility] 00:[facility]: [facility] [place] amoxicil DA Active U 2017-09 [facility] jami 1- [facility] 00:[facility]: [facility] [place] lamotrig DA Active FL 2017-09 [facility] ine 1-04 [facility] 00:[facility]: [facility] [place] tramadol DA Active U 2017-09 [facility] 1-04 [facility] 00:[facility]: [facility] [place] trazodon DA Active U 2017-09 [facility] e - [facility] 00:[facility]: [facility] [place] meperidi DA Active U 2017-09 [facility] ne - [facility] 00:[facility]: [facility] [place] ketorola DA Active U 2017-09 [facility] c 1-04 [facility] 00:00: [facility] [place] latex DA Active MO 2017-09 [facility] 1-04 [facility] 00:[facility]: [facility] [place] metoclop DA Active SV 2017-09 [facility] ramide 1-04 [facility] 00:00: [facility] [place] tramadol DA Active U 2017-09 [facility] 0-29 [facility] 00:00: [facility] [place] lamotrig DA Active FL [facility] ine - [facility] 00:[facility]: [facility] [place] tramadol DA Active U 2017- [facility] 9- [facility] 00:[facility]: [facility] [place] trazodon DA Active U 2018-0 [facility] e 05-08 [facility] 00:[facility]: [facility] [place] meperidi DA Active U 2018-0 [facility] ne 05-08 [facility] 00:[facility]: [facility] [place] ketorola DA Active U 2017-0 [facility] c 05-08 [facility] 00:00: [facility] [place] latex DA Active MO 2018-0 [facility] 05-08 [facility] 00:[facility]: [facility] [place] Meperidi Propensi Active Other (See Me thodi ne ty to Comments) 05-08 st adverse 00:00: Hospita reaction 00 l s to drug Penicill DA Active U [facility] ins 05-08 [facility] 00:[facility]: [facility] [place] doxycycl DA Active U 2017-0 [facility] ine 05-08 [facility] 00:00: [facility] [place] amoxicil DA Active U 0 [facility] jami 05-08 [facility] 00:[facility]: [facility] [place] Metoclop Propensi Active Shortness of 0 Univers ramide ty to Breath 6-15 ity of Hcl adverse 00:00: [place] reaction 00 Medical s Branch Adhesive Propensi Active Rash 0 [facility] Uni vers ty to 6-15 tape ity of adverse 00:00: [place] reaction Medical s Branch ADHESIVE Drug Active Rash 2017-0 Univers Class 6-15 ity of 00:00: [place] 00 Medical Branch METOCLOP DRUG Active SOB 0 Univers RAMIDE INGREDI 6-15 ity of HCL 00:00: [place] 00 [facility] Branch Adhesive Propensi Active Rash 2018-0 [facility] Met hodi ty to 6-[address] adverse 00:00: Hospita reaction 00 l s to drug Metoclop Propensi Active Other (See Me thodi ramide ty to Comments) [address] st adverse 00:00: Hospita reaction 00 l s to drug Trazodon Propensi Active Rash 2016-09 Univer s e ty to 2-08 ity of adverse 00:00: [place] reaction 00 Medical s Branch TRAZODON DRUG Active Rash 2016-09 Univers E INGREDI 2-08 ity of 00:00: [place] 00 Medical Branch Trazodon Propensi Active Rash 2016-09 Method i e ty to [address] st adverse 00:00: Hospita reaction 00 l s to drug doxycycl DA Active U 2016-0 [facility] ine 7-19 [facility] 00:[facility]: [facility] [place] amoxicil DA Active U 0 [facility] jami 7-19 [facility] 00:00: [facility] [place] lamotrig DA Active FL 0 [facility] ine 7-19 [facility] 00:00: [facility] [place] tramadol DA Active U 2015-0 [facility] 7-19 [facility] 00:00: [facility] [place] latex DA Active MO 2015-0 [facility] 7-19 [facility] 00:00: [facility] [place] Doxycycl Propensi Active Swelling 0 Univ ers ine Hcl ty to 7-19 ity of adverse 00:00: [place] reaction 00 Medical s Branch Latex Propensi Active Rash 0 Univers ty to 7-19 ity of adverse 00:00: [place] reaction 00 Medical s Branch Penicill Propensi Active Swelling 0 Univ ers ins ty to 7-19 ity of adverse 00:00: [place] reaction 00 Medical s Branch DOXYCYCL DRUG Active Swelling 0 Univer s INE HCL INGREDI 7-19 ity of 00:00: [place] 00 Medical Branch LATEX DRUG Active Rash 2015-0 Univers INGREDI 7-19 ity of 00:00: [place] 00 Medical Branch PENICILL Drug Active Swelling 2015-0 Univer s INS Class 7-19 ity of 00:00: [place] 00 Medical Branch Amoxicil Propensi Active Rash 2015-0 Univer s jami ty to 3-16 ity of adverse 00:00: [place] reaction 00 Medical s Branch Lamotrig Propensi Active Rash 2016-0 Univer s ine ty to 3-16 ity of adverse 00:00: [place] reaction 00 Medical s Branch Ketorola Propensi Active Rash 20160 Univer s c ty to 3-16 ity of Trometha adverse 00:00: [place] mine reaction 00 Medical s Branch Tramadol Propensi Active Rash 2015-0 Univer s ty to 3-16 ity of adverse 00:00: [place] reaction 00 Medical s Branch AMOXICIL DRUG Active Rash 2015-0 Univers JAMI INGREDI 3-16 ity of 00:00: [place] 00 Medical Branch LAMOTRIG DRUG Active Rash 2015-0 Univers INE INGREDI 3-16 ity of 00:00: [place] 00 Medical Branch KETOROLA DRUG Active Rash 2016-0 Univers C INGREDI 3-16 ity of TROMETHA 00:00: [place] [facility] 00 Medical Branch TRAMADOL DRUG Active Rash Univers INGREDI 3-16 ity of 00:00: [place] 00 Medical Branch Ketorola Propensi Active Other (See Me thodi c ty to Comments) [address] st adverse 00:00: Hospita reaction 00 l s to drug Penicill Propensi Active Other (See Me thodi ins ty to Comments) 11-19 st adverse 00:00: Hospita reaction 00 l s to drug Doxycycl Propensi Active Swelling 2014-09 Meth graciela [...] Quantity Comments Source History of Smokes tobacco [facility] tobacco use daily Hospital History [facility] University o f Alcohol Frequency [place] [facility] History [facility] University o f Alcohol Std [place] [facility] Drinks Branch History [facility] University o f Alcohol Binge [place] [facility] Alcohol intake 2022-01-20 2022-01-20 Current drinker [facility] dist 00:00:00 00:00:00 of alcohol Hospital (finding) Exposure to 2021-10-17 2021-11-16 Not sure University of SARS-CoV-2 00:00:00 20:21:00 [facility] (event) Branch Tobacco use and 2021-06-13 2021-06-13 Smokeless tobacco [facility] exposure 00:00:00 00:00:00 non-user Hospital Alcohol Comment 2021-06-13 2021-06-13 occasional [facility] 00:00:00 00:00:00 Hospital Sex Assigned At [birth year] F [facility] 00:00:00 00:00:00 Hospital Smoking Status Start Date Stop Date Source Never smoked tobacco [facility]finding[facility] Smokes tobacco daily 2021-06-13 00:00:00 [facility] Current some day smoker 2018-05-03 00:00:00 [facility] Medications Ordered Filled Start Stop Current Ordering Indication Dosage Frequency Signature Comments Components Source Medication Medication Date Date Medication? Clinician (SIG) Name Name HYDROcodone 2021- No [id number] 1{tbl} Q6H Take 1 Methodi -acetaminop 5-17 05-[address] [employer] ([employer]) 13:50: 00:00 mouth [facility] 10-325 mg 15 :00 every 6 l per tablet (six) hours as needed .acute pain. prn HYDROcodone 2021- No [id number] 1{tbl} Q6H Take 1 Methodi -acetaminop 5-17 05-[address] [employer] ([employer]) 13:50: 00:00 mouth [facility] 10-325 mg 15 :00 every 6 l per tablet (six) hours as needed .acute pain. prn tiZANidine 2021- No 4mg Q8H Take 4 mg M ethodi (ZANAFLEX) 5-17 05-[address] 4 MG tablet 13:37: 00:00 every 8 Ho spita 02 :00 (eight) l hours as needed for muscle spasms. tiZANidine 2021- No 4mg Q8H Take 4 mg M ethodi (ZANAFLEX) 5-17 05-[address] 4 MG tablet 13:37: 00:00 every 8 Ho spita 02 :00 (eight) l hours as needed for muscle spasms. pregabalin Yes 75mg Q.5D Take 75 mg M ethodi (LYRICA) 75 5-[address] MG capsule 13:11: (two) Hospit a 39 times a l day. pregabalin 2022-0 Yes 75mg Q.5D Take 75 mg M ethodi (LYRICA) 75 5-[address] MG capsule 13:11: (two) Hospit a 39 times a l day. buPROPion 2022-0 Yes 300mg QD Take 300 Met hodi XL 5-[address] (WELLBUTRIN 13:10: mouth Hospi ta XL) 300 MG 03 every l 24 hr morning. tablet adalimumab 2022-0 Yes 40mg Q1W Inject 40 Me thodi (Humira) 40 5-[address] mg/0.8 mL 13:10: the skin [facility] injection 03 every 7 l days. buPROPion 2022-0 Yes 300mg QD Take 300 Met hodi XL 5-[address] (WELLBUTRIN 13:10: mouth Hospi ta XL) 300 MG 03 every l 24 hr morning. tablet adalimumab 2022-0 Yes 40mg Q1W Inject 40 Me thodi (Humira) 40 5-[address] mg/0.8 mL 13:10: the skin [facility] injection 03 every 7 l days. cyclobenzap 2022-0 Yes 10mg Q.[id number] Take 10 mg Methodi rine 5-17 [id number] [address] mouth [address] (FLEXERIL) 13:09: 3D (three) [facility] 10 mg 39 times a l tablet day as needed for muscle spasms. diazePAM 2022-0 Yes 10mg Q12H Take 10 mg Met hodi (VALIUM) 10 5-[address] MG tablet 13:09: every 12 [facility] 39 (twelve) l hours as needed for anxiety. meloxicam 2022-0 Yes 7.5mg Q12H Take 7.5 Met hodi (MOBIC) 7.5 5-[address] mg tablet 13:09: mouth Hospita 39 every 12 l (twelve) hours as needed. cyclobenzap 2022-0 Yes 10mg Q.[id number] Take 10 mg Methodi rine 5-17 [id number] [address] mouth [address] (FLEXERIL) 13:09: 3D (three) [facility] 10 mg 39 times a l tablet day as needed for muscle spasms. diazePAM 2022-0 Yes 10mg Q12H Take 10 mg Met hodi (VALIUM) 10 5-[address] MG tablet 13:09: every 12 [facility] 39 (twelve) l hours as needed for anxiety. meloxicam Yes 7.5mg Q12H Take 7.5 Met hodi (MOBIC) 7.5 5-[address] mg tablet 13:09: mouth Hospita 39 every 12 l (twelve) hours as needed. HYDROcodone 2021- No [id number] 1{tbl} Q6H Take 1 Methodi -acetaminop 5-17 06-[address] hen ([employer]) 00:00: 04:59 mouth [facility] 10-325 mg 00 :00 every 6 l per tablet (six) hours as needed for severe pain for up to 30 days .chronic pain. prn Max Daily Amount: 4 tablets HYDROcodone 2021- [place] [id number] 1{tbl} Q6H Take 1 Methodi -acetaminop 5-17 06-[address] hen ([employer]) 00:00: 04:59 mouth [facility] 10-325 mg 00 :00 every 6 l per tablet (six) hours as needed for severe pain for up to 30 days .chronic pain. prn Max Daily Amount: 4 tablets diazePAM 2021- No 10mg Q6H Take 10 mg Me thodi (VALIUM) 10 10-[address] MG tablet 16:12: 00:00 every 6 [facility] 01 :00 (six) l hours as needed. diazePAM 2021- No 10mg Q6H Take 10 mg Me thodi (VALIUM) 10 10-[address] MG tablet 16:12: 00:00 every 6 [facility] 01 :00 (six) l hours as needed. diazePAM 2021-2021- No 10mg Q12H Take 1 Method i (VALIUM) 10 10-01 tablet (10 s t MG tablet 00:00: 04:59 mg total) Ho spita 00 :00 by mouth l every 12 (twelve) hours as needed for anxiety for up to 60 days. diazePAM 2021- No 10mg Q12H Take 1 Method i (VALIUM) 10 10-01 tablet (10 s t MG tablet 00:00: 04:59 mg total) Ho spita 00 :00 by mouth l every 12 (twelve) hours as needed for anxiety for up to 60 days. diazePAM 2020-09- No [id number] 10mg Q12H Take 1 Me thodi (VALIUM) 10 10-15 tablet (10 s t MG tablet 00:00: 05:59 mg total) Ho spita 00 :00 by mouth l every 12 (twelve) hours as needed for anxiety for up to 30 days. diazePAM 2020-09- No [id number] 10mg Q12H Take 1 Me thodi (VALIUM) 10 10-15 tablet (10 s t [...] needed. diazePAM 2020-09- No 10mg Q12H Take 10 [...] Take 1 Method i (VALIUM) 10 10-14 12-09 tablet (10 s t MG tablet 00:00: 00:00 mg total) Ho spita 00 :00 by mouth l every 12 (twelve) hours as needed for anxiety for up to 30 days. diazePAM 2020-09- No 10mg Q8H Take 10 mg Me thodi (VALIUM) 10 09-[address] MG tablet 08:53: 00:00 every 8 [facility] 41 :00 (eight) l hours as needed for anxiety. diazePAM 2020-09- No [id number] 10mg Q12H Take 1 Me thodi (VALIUM) 10 09-09 12-05 tablet (10 s t MG tablet 00:00: 05:59 mg total) Ho spita 00 :00 by mouth l every 12 (twelve) hours as needed for anxiety for up to 30 days. diazePAM 2020-09- No [id number] 10mg Q12H Take 1 Me thodi (VALIUM) 10 09-09 tablet (10 s t MG tablet 00:00: 05:59 mg total) Ho spita 00 :00 by mouth l every 12 (twelve) hours as needed for anxiety for up to 30 days. azithromyci 2020-09- No [id number] 250mg QD Take 1 Methodi n 07-[address] (Zithromax 00:00: 00:00 (250 mg Hos teddy Z-Anson) 250 00 :00 total) by l MG tablet mouth daily. Take 2 tablets the first day, then 1 tablet daily for 4 days. pantoprazol Yes [id number] 40mg Take 1 Univers e 4-18 tablet by ity of (PROTONIX) 00:00: mouth [place] 40 mg EC 00 daily. Medical tablet Branch dicyclomine 0 Yes [id number] 20mg Take 1 Univers 20 mg 4-18 tablet by ity of tablet 00:00: mouth [place] 00 every 6 Medical (six) Branch hours as needed for Abdominal pain. ondansetron Yes [id number] 4mg Take 1 Univers (ZOFRAN) 4 4-18 tablet by ity of mg tablet 00:00: mouth [place] 00 every 8 Medical (eight) Branch hours as needed for Nausea and Vomiting (N/V). pantoprazol 0 Yes [id number] 40mg Take 1 Univers e 4-18 tablet by ity of (PROTONIX) 00:00: mouth [place] 40 mg EC 00 daily. Medical tablet Branch dicyclomine 0 Yes [id number] 20mg Take 1 Univers 20 mg 4-18 tablet by ity of tablet 00:00: mouth [place] 00 every 6 Medical (six) Branch hours as needed for Abdominal pain. ondansetron 0 Yes [id number] 4mg Take 1 Univers (ZOFRAN) 4 4-18 tablet by ity of mg tablet 00:00: mouth [place] 00 every 8 Medical (eight) Branch hours as needed for Nausea and Vomiting (N/V). pantoprazol 0 Yes [id number] 40mg Take 1 Univers e 4-18 tablet by ity of (PROTONIX) 00:00: mouth [place] 40 mg EC 00 daily. Medical tablet Branch dicyclomine Yes [id number] 20mg Take 1 Univers 20 mg 4-18 tablet by ity of tablet 00:00: mouth [place] 00 every 6 Medical (six) Branch hours as needed for Abdominal pain. ondansetron Yes [id number] 4mg Take 1 Univers (ZOFRAN) 4 4-18 tablet by ity of mg tablet 00:00: mouth [place] 00 every 8 Medical (eight) Branch hours as needed for Nausea and Vomiting (N/V). acetaminoph 2019-09 Yes [id number] 1{tbl} Take 1-2 [...] Oral Tablet Oral Tablet 00 medroxyPROG medroxyPROG 2020-0 Yes SAMIR Take one UT ESTERone ESTERone 6-10 DYKES M.D. tablet by Physici Acetate 10 Acetate 10 00:00: mouth ans MG Oral MG Oral 00 twice Tablet Tablet daily for vaginal bleeding. IBU 600 MG IBU 600 MG 2020-0 Yes SAMIR Q0.3333D TAKE 1 UT Oral Tablet Oral Tablet 6-10 DYKES M.D. TABLET 3 Physici 00:00: TIMES ans 00 DAILY NEEDED. Ondansetron Ondansetron 2020-0 Yes SAMIR Take one 4 UT HCl - 4 MG HCl - 4 MG 6-10 DYKES M.D. mg pill po Physici Oral Tablet Oral Tablet 00:00: when ans 00 feeling nauseated. Do not take more than two pills daily. Fluconazole Fluconazole 2019- Yes JUNE TAKE 1 UT 150 MG Oral 150 MG Oral 5-29 KOTHARE TABLET 1 Physici Tablet Tablet 00:00: D.O. TIME ONLY. ans 00 metroNIDAZO metroNIDAZO 2019- Yes JUNE Q0.5D TAKE 1 UT LE 500 MG LE 500 MG 5-28 KOTHARE TABLET Physici Oral Tablet Oral Tablet 00:00: D.O. TWICE ans 00 DAILY UNTIL FINISHED. nystatin 2019-0 Yes [id number] Apply to Univers 100,000 2-05 affected ity of unit/gram 00:00: area(s) 3 Zay as ointment 00 (three) Medical times Branch daily. nystatin 2019-0 Yes [id number] Apply to Univers 100,000 2-05 affected ity of unit/gram 00:00: area(s) 3 Zay as ointment 00 (three) Medical times Branch daily. nystatin 2020-0 Yes [id number] Apply to Univers 100,000 2-05 affected ity [...] ans 00 DAILY UNTIL FINISHED. CefTRIAXone CefTRIAXone 2018- Yes MAO Inject UT Sodium 250 Sodium 250 0-23 GRUBBS 250mg IM Physici MG MG 00:00: M.D. in clinic ans Injection Injection 00 Solution Solution Reconstitut Reconstitut ed ed Sprintec 28 Sprintec 28 2018-09 Yes MAO 1 QD TAKE 1 UT 0.25-35 0.25-35 0-23 GRUBBS TABLET Phys ici MG-MCG Oral MG-MCG Oral 00:00: M.D. DAILY ans Tablet Tablet 00 DIRECTED. medroxyPROG 2018- Yes [id number] 150mg Univers ESTERone 5-14 ity of (DEPO-PROVE 18:30: [place] RA) 00 Medical injection Branch 150 mg medroxyPROG 2019- Yes [id number] 150mg Univers ESTERone 5-14 ity of (DEPO-PROVE 18:30: [place] RA) 00 Medical injection Branch 150 mg medroxyPROG 2019- Yes [id number] 150mg Univers ESTERone 5-14 ity of (DEPO-PROVE 18:30: [place] RA) 00 Medical injection Branch 150 mg Keppra 500 Keppra 500 2018- Yes M.D. U T MG Oral MG Oral 09-07 Physici Tablet Tablet 00:00: ans 00 Immunizations Ordered Immunization Filled Immunization Date Status Commen ts Source Name Name PFIZER COVID-19 MRNA 2021-07-09 Completed Meth odist VACCINATION 00:00:00 Hospital PFIZER COVID-19 MRNA 2021-07-09 Completed Meth odist VACCINATION 00:00:00 Hospital Vital Signs Vital Name Observation Time Observation Value Comments Source Systolic blood 2022-01-20 123 mm[Hg] [facility] pressure 18:11:00 Hospital Diastolic blood 2022-01-20 85 mm[Hg] [facility] pressure 18:11:00 Hospital Heart rate 2022-01-20 88 /min [facility] 18:11:00 Hospital Body temperature 2022-01-20 36.28 Alisha [facility] 18:11:00 Hospital Respiratory rate 2022-01-20 20 /min [facility] 18:11:00 Hospital Body height 2022-01-20 160 cm [facility] 18:11:00 Hospital Body weight 2022-01-20 66.225 kg [facility] 18:11:00 Hospital BMI 2022-01-20 25.86 kg/m2 [facility] 18:11:00 Hospital Oxygen saturation 2022-01-20 99 /min [facility] in Arterial blood 18:11:00 Hospital by Pulse [...] Systolic blood 2020-01-31 108 mm[Hg] Location: RUE; CT Physicia ns pressure 08:57:00 Position: Sitting Diastolic blood 2020-01-31 76 mm[Hg] Location: RUE; CT Physici ans pressure 08:57:00 Position: Sitting Body height 2020-01-31 67 [in_us] [facility] 08:57:00 Weight 2020-01-31 159.375 [lb_av] [facility] 08:57:00 Body mass index 2020-01-31 24.96 kg/m2 [facility] (BMI) [Ratio] 08:57:00 Body temperature 2020-01-31 97.9 [degF] Method: Oral [facility] 08:57:00 Heart Rate 2020-01-31 78 /min [facility] 08:57:00 BP Systolic 2019-06-28 130 mm[Hg] Location: [facility]; [facility] 16:14:00 Position: Sitting BP Diastolic 2019-06-28 82 mm[Hg] Location: [facility]; [facility] 16:14:00 Position: Sitting Height 2019-06-28 67 [...] Performed CT SPINE EXTERNAL STUDY 2021-11-28 20:02:53 [facility] CT SPINE EXTERNAL STUDY 2021-11-28 19:57:48 [facility] CT SPINE EXTERNAL STUDY 2021-11-28 19:52:18 [facility] REFERRAL- 2021-11-21 05:01:00 Doctor Unassigned, No [facility] REQUEST/RESPONSE Name Medical Branch MRI SPINE EXTERNAL 2021-10-09 18:17:21 Jorge Luis [facility]cdon[facility] STUDY [QL] CBC (INCLUDES 2020-02-16 00:00:00 [facility] DIFF/PLT) EMB 2020-02-14 00:00:00 [facility] Mell Mallory VPIII 2020-02-14 00:00:00 [facility] (BV Panel) . [facility] - GC/Chlamydia 2020-02-14 00:00:00 [facility] [QL] CBC (INCLUDES 2020-02-14 00:00:00 [facility] DIFF/PLT) [QL] AMYLASE 2020-02-14 00:00:00 [facility] [QL] LIPASE 2020-02-14 00:00:00 [facility] Mell LÓPEZath - Affirm VPIII 2020-01-31 00:00:00 [facility] (BV Panel) . [facility] - GC/Chlamydia 2020-01-31 00:00:00 [facility] [QL] CBC (INCLUDES 2020-01-31 00:00:00 [facility] DIFF/PLT) [QLH] CULTURE, URINE, 2019-06-28 00:00:00 [facility] ROUTINE . [facility] - PAP w/reflex 2019-06-28 00:00:00 [facility] HPV US Pelvic with 2019-06-28 00:00:00 [facility] Transvaginal and Pelvic Doppler 78012 History of Dental [facility] surgery History of [facility] section low transverse Plan of Care Planned Activity Planned Date Details Comments Source Future Scheduled 2022-07-15 Pneumococcal Vaccine: [facility] Test 15:03:03 Pediatrics (0 to 5 Years) and At-Risk Patients (6 to 64 Years) (1 - PCV) [code = Pneumococcal Vaccine: Pediatrics (0 to 5 Years) and At-Risk Patients (6 to 64 Years) (1 - PCV)] Future Scheduled 2022-07-15 Hepatitis C screening [facility] Test 15:03:03 (procedure) [code = 668976069] Future Scheduled 2022-07-15 Screening for [facility] Test 15:03:03 malignant neoplasm of cervix (procedure) [code = 332690307] Future Scheduled 2022-07-15 COVID-19 VACCINE (3 - [facility] Test 15:03:03 Booster for Pfizer series) [code = COVID-19 VACCINE (3 - Booster for Pfizer series)] Future Scheduled 2022-07-15 INFLUENZA VACCINE [facility] Test 15:03:03 [code = INFLUENZA VACCINE] Future Scheduled 2022 Pneumococcal Vaccine: [facility] Test 09:54:03 Pediatrics (0 to 5 Years) and At-Risk Patients (6 to 64 Years) (1 - PCV) [code = Pneumococcal Vaccine: Pediatrics (0 to 5 Years) and At-Risk Patients (6 to 64 Years) (1 - PCV)] Future Scheduled 2022 Hepatitis C screening [facility] Test 09:54:03 (procedure) [code = 177216711] Future Scheduled 2022 Screening for [facility] Test 09:54:03 malignant neoplasm of cervix (procedure) [code = 675019905] Future Scheduled 2022 COVID-19 VACCINE (3 - [facility] Test 09:54:03 Booster for Pfizer series) [code = COVID-19 VACCINE (3 - Booster for Pfizer series)] Future Scheduled 2022 [facility]ZA VACCINE [facility] Test 09:54:03 [code = INFLUENZA VACCINE] Encounters Start End Encounter Admission Attending Care Care Encounter Source Date/Time Date/Time Type Type Clinicians Facility Department ID 2021-07-06 Emergency [facility] [id number] Univers 13:36:32 ity [facility] 2021-07-04 Emergency [facility] [id number] [facility] 11:22:[facility] [place] [facility] 2021-07-04 Emergency [facility] [id number] Univers 10:48:55 [facility] [place] [facility] 2021-01-09 Inpatient [facility] MALISSA [id number] [facility] 10:52:00 [id number] [facility] 2020-12-27 Inpatient [facility] MALISSA [id number] [facility] 20:29:00 65 [facility] 2020-12-26 Inpatient CLAUDETTE Escobar, [facility] ENDO [id number] [facility] 10:00:00 Rik 01 [facility] 2020-12-22 Inpatient [facility] [id number] [facility] 23:08:15 49 [facility] 2020-08-23 Inpatient [facility] MALISSA [id number] [facility] 09:10:00 26 [facility] 2020-08-05 Inpatient [facility] MALISSA [id number] [facility] 20:55:00 [id number] [facility] 2020-02-20 Outpatient BHMIRYAM, [facility] 7511 M [facility] 10:04:01 LISHA 2022-07-07 2022-07-07 Outpatient LONA DILL [id number] Lona 10:45:00 10:45:00 ELBERT alvarez 2022-07-06 2022-07-06 Travel 1.2.840.1 1.2.093.662 [id number] Methodi 00:00:00 00:00:[address] 3.430.2.7 0.2.7.3.698 Ho spita .3.052822 084.8 l .8 2022-06-15 2022-06-16 Office Sathya, 1.2.840.1 [id number] 2099 [id number] Methodi 14:15:00 11:08:59 Visit Jorge Luis 32243.1.[address] 3.430.2.7 Hospit a .3.583158 l .8 2022-06-15 2022-06-16 [facility], 1.2.840.1 [id number] 2099 [id number] Methodi 14:15:00 11:08:59 Visit Jorge Luis 26719.1.[address] 3.430.2.7 Hospit a 3.621701 l .8 2022-06-15 2022-06-15 [facility], 1.2.840.1 [id number] Methodi 14:15:15 23:59:00 Encounter Jorge Luis 93663.1.1 971 s t 3.430.2.7 Hospit a 3.218148 l .8 2022-06-15 2022-06-15 [facility], 1.2.840.1 [id number] 286 [id number] Methodi 14:15:15 23:59:00 Encounter Jorge Luis 10484.1.1 971 s t 3.430.2.7 Hospit a 3.424490 l .8 2022-06-15 2022-06-15 [facility], 1.2.840.1 [id number] 694 [id number] Methodi 14:15:13 23:59:00 Encounter Jorge Luis 97482.1.1 963 s t 3.430.2.7 Hospit a 3.269068 l .8 2022-06-15 2022-06-15 [facility], 1.2.840.1 [id number] 054 [id number] Methodi 14:15:13 23:59:00 Encounter Jorge Luis 71401.1.1 963 s t 3.430.2.7 Hospit a 3.430577 l .8 2022-06-15 2022-06-15 [facility], 1.2.840.1 [id number] 318 [id number] Methodi 14:13:36 14:14:00 Encounter Jorge Luis 48577.1.1 680 s t 3.430.2.7 Hospit a .3.901620 l .8 2022-06-15 2022-06-15 [facility], 1.2.840.1 [id number] 439 [id number] Methodi 14:13:36 14:14:00 Encounter Jorge Luis 88108.1.1 680 s t 3.430.2.7 Hospit a .3.064842 l .8 2022-06-15 2022-06-15 [facility], 1.2.840.1 [id number] 584 [id number] Methodi 14:12:01 14:12:01 Encounter Jorge Luis 50571.1.1 418 s t 3.430.2.7 Hospit a .3.334376 l .8 2022-06-15 2022-06-15 [facility], 1.2.840.1 [id number] 172 [id number] Methodi 14:12:01 14:12:01 Encounter Jorge Luis 10647.1.1 418 s t 3.430.2.7 Hospit a .3.296852 l .8 2022-06-15 2022-06-15 [facility], 1.2.840.1 [id number] 2100 [id number] Methodi 00:00:00 00:00:00 Only Jorge Luis 58861.1.[address] 3.430.2.7 Hospit a .3.557259 l .8 2022-06-15 2022-06-15 Travel 1.2.840.1 1.2.804.744 0981 [id number] Methodi 00:00:00 00:00:[address] 3.430.2.7 0.2.7.3.698 Ho spita .3.529802 084.8 l .8 2022-06-15 2022-06-15 [facility], 1.2.840.1 [id number] Methodi 00:00:00 00:00:00 Only Jorge Luis 86654.1.[address] 3.430.2.7 Hospit a .3.442069 l .8 2022-06-15 2022-06-15 Travel 1.2.840.1 1.2.551.165 4460 347219 Methodi 00:00:00 00:00:[address] 3.430.2.7 0.2.7.3.698 Ho spita .3.484334 084.8 l .8 2022-06-11 2022-06-11 Travel 1.2.840.1 1.2.076.971 9426 420709 Methodi 00:00:00 00:00:[address] 3.430.2.7 0.2.7.3.698 Ho spita .3.994744 084.8 l .8 2022-06-11 2022-06-11 Travel 1.2.840.1 1.2.689.983 0213 295171 Methodi 00:00:00 00:00:[address] 3.430.2.7 0.2.7.3.698 Ho spita .3.541607 084.8 l .8 2022-02-17 2022-02-17 Petr Borges, 1.2.840.1 [id number] 2099 [id number] Methodi 00:00:00 00:00:[address] [place] [address]75.[address] Andrea 3.430.2.7 Hospit a .3.522648 l .8 2022-02-17 2022-02-17 Petr Borges 1.2.840.1 [id number] 2099 [id number] Methodi 00:00:00 00:00:00 [place] [address] Andrea 3.430.2.7 Hospit a .3.015311 l .8 2022-01-20 2022-01-20 Amanda Borges 1.2.840.1 [id number] 2099 [id number] Methodi 13:00:00 13:57:49 Visit [place] 48772.1.[address] Andrea 3.430.2.7 Hospit a .3.292991 l .8 2022-01-20 2022-01-20 Office Vivian, 1.2.840.1 [id number] 2099 [id number] Methodi 13:00:00 13:57:49 Visit Yoseph 44209.1.[address] Andrea 3.430.2.7 Hospit a .3.135016 l .8 2022-01-20 2022-01-20 Telephone GEORGIE Kelley 1.2.840.114 [id number] Univers 00:00:00 00:00:00 Michi MULTISPEC 350.1.13.10 ity of IALTY 4.2.7.2.686 [facility] [id number] [address] [facility] 2022-01-20 2022-01-20 Travel 1.2.840.1 1.2.494.569 9082 [id number] Methodi 00:00:00 00:00:[address] 3.430.2.7 0.2.7.3.698 Ho spita .3.170022 084.8 l .8 2022-01-20 2022-01-20 Travel 1.2.840.1 1.2.794.809 5936 [id number] Methodi 00:00:00 00:00:[address] 3.430.2.7 0.2.7.3.698 Ho spita .3.806556 084.8 l .8 2022-01-19 2022-01-19 Telephone Vivian [facility] 1.2.840.114 [id number] Univers 00:00:00 00:00:00 Yoseph MULTISPEC 350.1.13.10 ity of Andrea IALTY 4.2.7.2.686 [facility] [phone] [address] [facility] 2021-11-21 2021-11-21 Orders Doctor HALEY 1.2.840.114 [id number] Univers 00:00:00 00:00:00 Only Unassigned, ALEM 350.1.13.10 ity of [place] [facility] 4.2.7.2.686 [facility] [phone] [facility] 009 Branch 2021-11-17 2021-11-18 Emergency [facility] [id number] Univers 19:45:00 00:44:00 [facility] [place] [facility] 2021-11-17 2021-11-18 Emergency [facility] 1.2.631.104 [id number] Univers 19:45:00 00:44:00 Donta ORESTES 350.1.13.10 i ty [facility] 4.2.7.2.686 [facility] [id number] [facility] 084 Branch 2021-11-16 2021-11-16 Emergency [facility] [id number] Univers 20:28:00 21:58:00 ARVINDLI [facility] [place] [facility] 2021-11-16 2021-11-16 Emergency [facility] 1.2.594.282 [id number] Univers 20:28:00 21:58:00 [facility] 350.1.13.10 ity [facility] 4.2.7.2.686 [facility] [id number] [place] [address] Branch 2021-10-02 2021-10-02 Emergency EM Nwandreae, SALENA MALISSA [id number] [facility] 16:59:00 20:32:00 Hung [id number] [facility] 2021-10-02 2021-10-02 Emergency EM EDDOC, [facility] [id number] [facility] 16:59:00 20:32:00 GENERIC 76 [facility] 2021-10-01 2021-10-01 Petr Borges 1.2.840.1 [id number] 2099 [id number] Methodi 00:00:00 00:00:[address] [facility] 3.430.2.7 Hospit a .3.233933 l .8 2021-10-01 2021-10-01 Petr Borges 1.2.840.1 [id number] 2099 [id number] Methodi 00:00:00 00:00:00 [place] [address] Andrea 3.430.2.7 Hospit a .3.731655 l .8 2021-09-30 2021-09-30 Emergency [facility] [id number] Univers 13:31:00 16:34:00 AWILDA [facility] 2021-09-30 2021-09-30 Emergency [facility] 1.2.840.114 [id number] Univers 13:31:00 16:34:00 Awilda Cookie GUERRERO 350.1.13.10 [facility] 4.2.7.2.686 [facility] [id number] [address] 2021-08-14 2021-08-14 Refill Gutierres, 1.2.840.1 [id number] 21 [id number] Methodi 00:00:00 00:00:[address] 3.430.2.7 Hospit a .3.929069 l .8 2021-08-14 2021-08-14 Refill Gutierres, 1.2.840.1 [id number] 21 [id number] Methodi 00:00:00 00:00:[address] 3.430.2.7 Hospit a .3.055606 l .8 2021-08-12 2021-08-12 Refill Gutierres, 1.2.840.1 [id number] 21 [id number] Methodi 00:00:00 00:00:[address] 3.430.2.7 Hospit a .3.654498 l .8 2021-08-12 2021-08-12 Refill Gutierres, 1.2.840.1 [id number] 21 [id number] Methodi 00:00:00 00:00:[address] 3.430.2.7 Hospit a .3.737830 l .8 2021-07-23 2021-07-23 Emergency X [facility] ERT [id number] Univers 16:14:00 17:06:00 [facility] 2021-07-23 2021-07-23 Emergency [facility] 1.2.847.747 [id number] [facility] 16:14:00 17:06:00 [facility] PHOENIXJUAREZ 350.1.13.10 i ty [facility] 4.2.7.2.686 [facility] [id number] [place] 720164 Branch 2021-07-23 2021-07-23 Emergency EM Sanket, HCACL AERS [id number] [facility] 13:58:00 14:24:00 Burak [id number] [facility] 2021-07-23 2021-07-23 Emergency EM Sanket, HCACL HCACL [id number] [facility] 13:58:00 14:24:00 Burak 69 [facility] 2021-07-10 2021-07-10 Telemedici Vivian, 1.2.840.1 [id number] 2 [id number] Methodi 08:30:00 09:02:51 ne Yoseph 77504.1.[address] [facility] 3.430.2.7 Hospit a .3.183169 l .8 2021-07-09 2021-07-09 Travel 1.2.840.1 1.2.933.720 0930 [id number] Methodi 00:00:00 00:00:[address] 3.430.2.7 0.2.7.3.698 Ho spita .3.717973 084.8 l .8 2021-06-13 2021-06-13 [facility]patient [facility] [id number] [place] 00:00:00 00:00:[address] YOSE[address] 2021-04-17 2021-04-17 Emergency E LOLITA WASSERMAN [facility] 7515 16:40:00 19:42:[address] [facility] 2021-03-30 2021-03-30 Emergency E SATURNINO [facility] 7514 MH 00:46:00 06:26:00 SABHA 2021-01-15 2021-01-15 Outpatient Luz, ITALIACL [facility] G81 [id number] [facility] 08:00:00 08:00:00 Rik [id number] [facility] 2021-01-09 2021-01-09 Emergency E LOLITA WASSERMAN [facility] 7513 12:29:00 16:41:00 [facility] shona [facility] 2020-12-26 2020-12-26 Emergency [facility] 064 [id number] 09 [place] 00:00:00 00:00:[address] 2020-12-21 2020-12-22 Emergency [facility] 1.2.831.613 [id number] [id number] [facility] 22:42:00 02:02:00 Miladys Guerrero 350.1.13.10 ity of [place] 4.2.7.2.686 [facility] [phone] [facility] 084 Branch 2020-12-21 2020-12-22 Emergency [facility] 1.2.013.994 [id number] 7932 22:42:00 02:02:00 Miladys Guerrero 350.1.13.10 [place] 4.2.7.2.686 [place] [phone] [facility] 2020-12-21 2020-12-21 Orders Doctor HALEY 1.2.840.114 [id number] Univers 00:00:00 00:00:00 Only Unassigned, ALEM 350.1.13.10 ity of [place] [facility] 4.2.7.2.686 Zay [id number] [facility] 009 Branch 2020-12-21 2020-12-21 Orders Doctor HALEY 1.2.840.114 [id number] 30 00:00:00 00:00:00 Only Unassigned, ALEM 350.1.13.10 [facility] 4.2.7.2.686 [id number] 009 2020-08-15 2020-08-19 Inpatient [facility] [id number] [facility] 14:57:00 06:49:[address] 2020-08-15 2020-08-15 Emergency [facility] 1.2.500.996 [id number] Univers 03:26:00 06:17:00 Donta Guerrero 350.1.13.10 i ty of [place] 4.2.7.2.686 [facility] [id number] [address] 2020-08-15 2020-08-15 Emergency X ROXANN, [facility] ERT [id number] Univers 03:26:00 06:17:00 DONTA durga [facility] 2020-08-15 2020-08-15 Emergency [facility] 1.2.923.543 [id number] 03:26:00 06:17:00 Donta Guerrero 350.1.13.10 [place] 4.2.7.2.686 [place] [id number] [facility] 2020-04-13 2020-04-13 Emergency [facility] 1.2.840.114 [id number] Univers 19:38:00 23:40:00 Awilda Guerrero 350.1.13.10 ity of [place] 4.2.7.2.686 [facility] [id number] [address] 2020-04-13 2020-04-13 Emergency [facility] 1.2.840.114 [id number] 19:38:00 23:40:00 Awilda Guerrero 350.1.13.10 [place] 4.2.7.2.686 [place] [id number] [facility] 2020-04-13 2020-04-13 Orders Doctor SUDHA 1.2.840.114 [id number] Univers 00:00:00 00:00:00 Only Unassigned, ALEM 350.1.13.10 ity of [place] [facility] 4.2.7.2.686 Zay [id number] [address] 2020-04-13 2020-04-13 Orders Doctor SUDHA 1.2.840.114 [id number] 00:00:00 00:00:00 Only Unassigned, ALEM 350.1.13.10 [place] [facility] 4.2.7.2.686 [id number] 009 2020-04-10 2020-04-10 Emergency [facility] 1.2.156.856 [id number] Univers 15:39:00 19:05:00 Huy Guerrero 350.1.13.10 i ty of [place] 4.2.7.2.686 [facility] [id number] [address] 2020-04-10 2020-04-10 Emergency [facility] 1.2.399.778 [id number] 5068 15:39:00 19:05:00 Huy Guerrero 350.1.13.10 [place] 4.2.7.2.686 [place] [id number] 084 2020-04-10 2020-04-10 Orders Doctor SUDHA 1.2.840.114 [id number] Univers 00:00:00 00:00:00 Only Unassigned, ALEM 350.1.13.10 [facility] 4.2.7.2.686 [facility] as [id number] [facility] 009 Branch 2020-04-10 2020-04-10 Orders Doctor SUDHA 1.2.840.114 [id number] 00:00:00 00:00:00 Only Unassigned, ALEM 350.1.13.10 [facility] 4.2.7.2.686 [id number] 009 2020-03-11 2020-03-11 Dusty FOSTER [facility] Obstetrics [id number] [place] 10:00:00 10:00:00 t; Gayatri HUSAIN and Quynh FOSTER, Gynecology rubén HUSAIN M.D. [facility] 2020-02-28 2020-02-28 [facility] [id number] [place] 08:30:00 08:30:00 t; Gayatri HUSAIN ans ASHA, M.D. 2020-02-23 2020-02-23 [facility] [id number] [place] 11:00:00 11:00:00 t; Gayatri HUSAIN ans ASHA, M.D. 2020-02-16 2020-02-16 Dusty MARTE [facility] Obstetrics [id number] [place] 14:15:00 14:15:00 t; Yue ROCHA i, M.D. Gynecology Dinah Crawford M.D. Clinic 2020-02-15 2020-02-15 Emergency E AMELIE, MHSE MHSE [id number] 20:06:00 21:19:00 [facility] 2020-02-14 2020-02-14 [facility] [id number] [place] 09:00:00 09:00:00 t; SAMIR MATAMOROS, David DAWSON M.D. Gynecology rubén [place] [facility] 2020-01-31 2020-01-31 AppointMARIBEL Meng Obstetrics [id number] [place] 08:30:00 08:30:00 t; JUNE and Jennifer AGRAWAL D.O. Gynecology ans JUNE [facility] 2019-12-20 2019-12-20 Appointpeng GOSS [facility] Orthopedics [id number] [place] 09:30:00 09:30:00 t; JOSE ROBERTO [facility] Quynh GOSS M.D. Sports Jewel Lazo M.D. [facility] 2019-12-20 2019-12-20 Outpatient Raju_P MMG MMG [id number] [place] 04:51:00 04:51:00 0415 [facility] 2019-12-18 2019-12-18 Emergency E TABBY, MHSE MHSE [id number] MH 20:54:00 21:40:[facility] 2019-10-11 2019-10-12 Emergency X QIU, [facility] ERT [id number] Univers 21:52:36 00:17:00 DONTA calixto [facility] 2019-10-11 2019-10-12 Emergency [facility] [id number] Univers 21:52:36 00:17:00 Donta Guerrero [id number] i ty of [place] [id number] [facility] [id number] [address] 2019-10-11 2019-10-12 Emergency [facility] [id number] 21:52:36 00:17:00 Donta Guerrero [id number] [place] [id number] [place] [address] [id number] [facility] 2019-10-11 2019-10-11 Orders Doctor HALEY [id number] Univers 00:00:00 00:00:00 Only Unassigned, ALEM 350.1.13.[address] [facility] 4.2.7.2.686 Zay as [phone] [facility] [address] 2019-10-11 2019-10-11 Orders Doctor SUDHA 1.2.840.114 [id number] 00:00:00 00:00:00 Only Unassigned, ALEM 350.1.13.10 [place] [phone] 009 2019-06-28 2019-06-28 Appointmen [facility] Obstetrics [id number] 16:00:00 16:00:00 t; Gayatri CAVANAUGH and Ph ysici GRUBBS, Gynecology Dinah Medina M.D. [facility] 2019-05-12 2019-05-12 Nurse Visit, Carrigracie Nurse [facility] 1.2 .840.114 [id number] [facility] 10:44:42 12:05:57 Visit Perri Pérez DIRECTOR TRANSITION 350.1.13.10 ity of [facility] 4.2.7.2.686 Zay as MATERNAL [phone] Med ical & CHILD 107 [facility] 2019-05-12 2019-05-12 Nurse Visit, [facility] 1.2.840.114 [id number] 10:44:42 12:05:57 Visit Bautista DIRECTOR TRANSITION 350.1.13.10 Nurse [facility] 4.2.7.2.686 MATERNAL [phone] & CHILD [address] [place] [address] 2019-05-10 2019-05-10 Telephone Elisa [facility] 1.2.840.114 [id number] [facility] 00:00:00 00:00:00 Perri Olivier DIRECTOR TRANSITION 350.1.13.10 it y of [facility] 4.2.7.2.686 Zay as MATERNAL [phone] Med ical & CHILD 107 [facility] 2019-05-10 2019-05-10 Telephone Elisa [facility] 1.2.840.114 [id number] 00:00:00 00:00:00 Perri Olivier DIRECTOR TRANSITION 350.1.13.10 REGIONAL 4.2.7.2.686 MATERNAL [phone] & CHILD 107 [facility] 2019-04-03 2019-04-03 Patient ROBIN Mcfadden 1.2.840.114 [id number] [facility] 00:00:00 00:00:00 Secure Msg Ivet Y HEALTH 350.1.13.10 ity [place] [phone] [address] 2019-04-03 2019-04-03 Patient ROBIN Mcfadden 1.2.840.114 [id number] 00:00:00 00:00:00 Secure Msg Ivet Y HEALTH 350.1.13.10 CLINICS 4.2.7.2.686 [id number] [facility] 2019-03-07 2019-03-07 Patient Doctor SUDHA 1.2.840.114 [id number] [facility] 00:00:00 00:00:00 Secure Msg Unassigned, ALEM 350.1.13.10 ity of [place] [facility] 4.2.7.2.686 Zay as [phone] [address] 2019-03-07 2019-03-07 Patient Doctor SUDHA 1.2.840.114 [id number] 20 00:00:00 00:00:00 Secure Msg Unassigned, ALEM 350.1.13.10 [place] [facility] 4.2.7.2.686 [id number] 044 2019-02-27 2019-02-27 Patient Doctor SUDHA 1.2.840.114 [id number] Univers 00:00:00 00:00:00 Secure Msg Unassigned, ALEM 350.1.13.10 ity of [place] [facility] 4.2.7.2.686 Zay as [phone] [address] 2019-02-27 2019-02-27 Patient Doctor SUDHA 1.2.840.114 [id number] 00:00:00 00:00:00 Secure Msg Unassigned, ALEM 350.1.13.10 [place] [facility] 4.2.7.2.686 [id number] [facility] 2018-10-13 2018-10-13 [place]EL [place] [id number] [place] 14:30:00 14:30:00 t; Jennifer FINK i, M.D. ans JORDAN, M.D. 2018-09-07 2018-09-21 [id number] 15:00:00 10:19:03 2018-09-07 2018-09-07 MARIBEL Johnson Website Admin [id number] [place] 15:00:00 15:00:00 tBONITA CENTENO, Gayatri Alavrado M.D. Results Test Description Test Time Test Comments Results Result Comments Source UR HCG QUAL 2021-10-02 18:52:00 Test Item Value Reference Range Interpretation Comme nts UR HCG QUAL (test code = HCGQLU) NEGATIVE NEGATIVE SURGICAL [id number] 08:42:00 Test Item Value Reference Range Interpretation Comments SURGICAL SPECIMENS (test code = SURG) --------RUN DATE: 12/31/20 [facility] - LAB PAGE 1 RUN TIME: 841 Specimen Inquiry RUN USER: INTERFACE --------PATIENT: LONA JEAN BAPTISTE LOC: [facility] U #: [id number] AGE/SX: 30/F ROOM: [facility] RE12/26/20REG DR: Olegario Srivastava MD : [birth year] BED: 02 DIS: 12/26/20 STATUS: DIS Keira TLOC: -------- SPEC #: [id number] RECD: 12/26/20 STATUS: MIKI MAI #: [id number] LAURYN: 12/26/[address] [facility] [address]: Olegario Srivastava MD ENTERED: 12/26/20 SP [...] and its performance characteristics determined by the [facility]. It has not been cleared or approved by the US Food and Drug Administration. The FDA has determined that such clearance or approval is not necessary. The test is used for clinical purposes. It should not be regarded as investigational or for research. [facility] is certified under CLIA-88 (Clinical Laboratory [...] CONTINUED ON NEXT PAGE --------RUN DATE: 12/31/20 [facility] - LAB PAGE 2 RUN TIME: 841 Specimen Inquiry RUN USER: INTERFACE --------SPEC #: [id number] PATIENT: LONA JEAN BAPTISTE #[id number] (Continued) FINAL DIAGNOSIS (Continued) C. STOMACH, FUNDUS, BIOPSY: - OXYNTIC MUCOSA WITH REACTIVE GASTROPATHY - NEGATIVE FOR HELICOBACTER PYLORI BY IMMUNOHISTOCHEMISTRY - NO INTESTINAL METAPLASIA, DYSPLASIA, OR MALIGNANCY IS IDENTIFIED CPT: 45648 x3, 70573 x3 GROSS DESCRIPTION Received are three containers [...] are submitted in toto in cassette C. MD/ph MICROSCOPIC DESCRIPTION Performed. Signed SIGNATURE ON FILE Eladia Montelongo MD 12/31/20 0842 -------- END OF REPORT COVID Asymptomatic IH [id number] 10:52:00 Test Item Value Reference Interpretation Comments [...] i ts performancechar acteristics were determined by [facility]. Thi s test has notbeen FDA ashley [...] setting? Unknown? UnknownAge at collection: YBASIC METABOLIC [id number] 21:38:00 Test Item Value Reference Range Interpretation [...] CA) Reference Range Oct 2020 LIVER FUNCTION [id number] 21:38:00 Test Item Value Reference Range Interpretation [...] code = ALKP) Reference Range Oct 2020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
[2022-07-17] MEDS ORDERED: NA CHLORIDE 0.9% 1,000 ML ONE (11:15)
[2022-07-17 11:23] LABS: Urine Blood Trace-lysed (Negative); Urine Glucose Negative (Negative); Urine Protein Negative (Negative); Urine Specific Gravity 1.015 (1.005-1.030); Urine pH 5.5 (5.0-7.0)
[2022-07-17 11:25] LABS: Absolute Lymphocytes (CBC) 2.5 K/uL (0.7-4.9); Lymphocytes % 27.8 % (15.3-44.8); MCV 92.9 fL (80-100); MPV 6.9 fL (7.6-11.3)
[2022-07-17 11:37] LABS: Urine Specific Gravity/Preg 1.015 (1.005-1.030)
[2022-07-17 11:41] LABS: Bilirubin Total 0.3 mg/dL (0.2-1.0); Potassium 3.8 mmol/L (3.5-5.1); Protein, Total 7.6 g/dL (6.4-8.2)
[2022-07-17] MEDS ORDERED: HYDROMORPHONE HCL 2 MG/ML inj ONE (11:59)
[2022-07-17] MEDS ORDERED: ONDANSETRON 4 MG/2 ML VIAL ONE ×2 (11:59→13:42)
[2022-07-17] MEDS ORDERED: PANTOPRAZOLE 40 MG INJ ONE (11:59)
--- NOTE | 2022-07-17 12:43 | RAD REPORT ---
EXAM DESCRIPTION: CTAbdomen Pelvis W Contrast - 07/17/2022 12:26 pm CLINICAL HISTORY: Abdominal pain. Abdominal pain, acute, nonlocalized COMPARISON: CT ABD PELVIS W CONTRAST dated 07/05/2014; CT ABD PELVIS W CONTRAST dated 06/03/2014; CT ABD PELVIS W CONTRAST dated 03/27/2014 TECHNIQUE: Biphasic CT imaging of the abdomen and pelvis was performed with 100 ml non-ionic IV cont rast. All CT scans are performed using dose optimization technique as appropriate and may include automated exposure control or mA/KV adjustment according to patient size. FINDINGS: The lung bases are clear.Small hiatal hernia. The liver, spleen, pancreas, adrenal glands and kidneys are within normal limits. No bowel obstruction, free air, free fluid or abscess. Significant fecal retention. Appendectomy. No evidence of significant lymphadenopathy. No suspicious bony findings. IMPRESSION: No acute intra-abdominal or pelvic finding. Prominent fecal retention.
--- NOTE | 2022-07-17 13:26 | ER ---
Nurse's Notes [facility] Name: Lona Marie Age: 32 yrs Sex: Female : 1990 Arrival Date: 07/17/2022 Time: 10:13 Bed 13 Private MD: Diagnosis: Abdominal pain, Generalized;Upper abdominal pain, unspecified Presentation: 07/17 10:19 Chief complaint: Patient states: "My pain management started me on a new medication, ss Nucynta, two days ago and ever since then I've been feeling like this." Pt c/o Dizziness, SOB, chronic pain is worse and "knot in abd". Coronavirus screen: Client denies travel out of the [place] in the last 14 days. Ebola Screen: Patient denies exposure to infectious person. Patient denies travel to an Ebola-affected area in the 21 days before illness onset. Onset: The symptoms/episode began/occurred 2 day(s) ago. Anaphylaxis evaluation, no signs or symptoms of anaphylaxis were noted. Initial Sepsis Screen: Does the patient meet any 2 criteria? No. Patient's initial sepsis screen is negative. Does the patient have a suspected source of infection? No. Patient's initial sepsis screen is negative. Risk Assessment: Do you want to hurt yourself or someone else? Patient reports no desire to harm self or others. Onset of symptoms was July 15, 2022. 10:19 Method Of Arrival: Ambulatory ss 10:19 Acuity: SMITH 3 ss Historical: - Allergies: 10:21 Adhesives; ss 10:21 Amoxicillin; ss 10:21 Demerol; ss 10:21 Doxycycline; ss 10:21 Lamictal; ss 10:21 Latex, Natural Rubber; ss 10:21 PENICILLINS; ss 10:21 Reglan; ss 10:21 Toradol; ss 10:21 tramadol; ss 10:21 Trazodone; ss 10:21 Nucynta; ss - Home Meds: 10:25 diazepam 10 mg Oral tab 1 tab 2 times per day [Active]; Flexeril 10 mg Oral tab 1 tab 3 ss times per day [Active]; meloxicam 15 mg Oral tab 1 tab once daily [Active]; [place] 10-325 mg Oral tab every 4-6 hours [Active]; oxycodone 10 mg Oral tab 1 tab every 6 hours [Active]; pregabalin 150 mg Oral cap 1 cap 2 times per day [Active]; Movantik oral [Active]; - PMHx: 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 - Social history:: Smoking status: Patient reports the use of cigarette tobacco products, denies chronic smoking, but will smoke occasionally. Screenin:27 Abuse screen: Denies threats or abuse. Denies injuries from another. Nutritional ko1 screening: No deficits noted. Tuberculosis screening: No symptoms or risk factors identified. Fall Risk None identified. Assessment: 12:27 Pain: Complains of pain in abdomen. Respiratory: Airway is patent Respiratory effort is ko1 even, unlabored, Breath sounds are clear bilaterally. Vital Signs: 10:19 BP 136 / 88; Pulse 87; Resp 16; Temp 98.6(TE); Pulse Ox 100% on R/A; Weight 65.77 kg; ss Height 5 ft. 3 in. (160.02 cm); 12:27 BP 128 / 82; Pulse 85; Resp 18; Pulse Ox 99% on R/A; ko1 10:19 Body Mass Index 25.69 (65.77 kg, 160.02 cm) ss ED Course: 10:13 Patient arrived in ED. as 10:14 Markell Worthington MD is Attending Physician. kdr 10:20 Triage completed. ss 10:21 Arm band placed on right wrist. ss 10:28 Jess Magaña RN is Primary Nurse. ko1 11:25 Initial lab(s) drawn, by pr, sent to lab. Inserted saline lock: 20 gauge in right em1 antecubital area, using aseptic technique. Blood collected. 12:27 Patient has correct armband on for positive identification. Bed in low position. Call ko1 light in reach. Side rails up X 1. 12:28 CT Abd/Pelvis - IV Contrast Only In Process Unspecified. EDMS 14:02 No provider procedures requiring assistance completed. IV discontinued, intact, ss bleeding controlled, No redness/swelling at site. Pressure dressing applied. Administered Medications: 11:16 Drug: NS 0.9% 1000 ml Route: IV; Rate: 1 bolus; Site: right antecubital; ko1 12:11 Drug: Zofran (Ondansetron) 4 mg Route: IVP; Site: right antecubital; ko1 12:11 Drug: ProTONIX (pantoprazole) 40 mg Route: IVP; Site: right antecubital; ko1 12:12 Drug: Dilaudid (HYDROmorphone) 2 mg Route: IVP; Site: right antecubital; ko1 13:38 Drug: GI Cocktail without - (Maalox Suspension 30 ml, Lidocaine Liquid 2 % 15 ko1 ml) Route: PO; 13:52 Drug: Zofran (Ondansetron) 4 mg Route: IVP; Site: right antecubital; ko1 Medication: 12:27 VIS not applicable for this client. ko1 Outcome: 13:26 Discharge ordered by . kdr 14:02 Discharged to home ambulatory. ss 14:02 Condition: good 14:02 Discharge instructions given to patient, Instructed on discharge instructions, follow up and referral plans. medication usage, Demonstrated understanding of instructions, follow-up care, medications, Prescriptions given X 1. 14:03 Patient left the ED. ss Signatures: Dispatcher [employer] EDMS Markell Worthington MD MD [facility] Jony, [place]arien [place] 1 Nely Mcdaniel RN RN ss Jess Magaña RN RN ko1 Corrections: (The following items were deleted from the chart) 10:24 10:19 Chief complaint: Patient states: "My pain management started me on a new medication, Nucynta, two days ago and ever since then I've been feeling like this." Pt c/o Dizziness, SOB, N/V" 10:24 10:19 Coronavirus screen: Client denies travel out of the [place] in the last 14 days. [facility] 10:27 10:22 Social history: Smoking status: [facility]
--- NOTE | 2022-07-17 13:26 | EDPHYS ---
Physician Documentation [facility] Name: Lona Marie Age: 32 yrs Sex: Female : 1990 Arrival Date: 07/17/2022 Time: 10:13 Bed 13 Private MD: ED Physician Markell Worthington HPI: 07/17 19:25 This 32 yrs old Female presents to ER via Ambulatory with complaints of Allergic kdr Reaction, Epigastric Pain, Vomiting, Back Pain, Dizziness. 19:25 Patient presents with abdominal pain that is persistent and 10 out of 10. She stated kdr she was started on some new medication by her pain management doctor and since then she has had an excruciating pain in her abdomen. She not had pain like this before. She had some nausea and vomiting but no diarrhea.. Onset: The symptoms/episode began/occurred suddenly, 2 day(s) ago. Severity of symptoms: At their worst the symptoms were mild in the emergency department the symptoms are unchanged. The patient has not experienced similar symptoms in the past. The patient has been recently seen by a physician: the patient's primary care provider. The patient feels like she is reacting to the new medication she was given. Historical: - Allergies: 10:21 Adhesives; ss 10:21 Amoxicillin; ss 10:21 Demerol; ss 10:21 Doxycycline; ss 10:21 Lamictal; ss 10:21 Latex, Natural Rubber; ss 10:21 PENICILLINS; ss 10:21 Reglan; ss 10:21 Toradol; ss 10:21 tramadol; ss 10:21 Trazodone; ss 10:21 Nucynta; ss - Home Meds: 10:25 diazepam 10 mg Oral tab 1 tab 2 times per day [Active]; Flexeril 10 mg Oral tab 1 tab 3 ss times per day [Active]; meloxicam 15 mg Oral tab 1 tab once daily [Active]; [place] 10-325 mg Oral tab every 4-6 hours [Active]; oxycodone 10 mg Oral tab 1 tab every 6 hours [Active]; pregabalin 150 mg Oral cap 1 cap 2 times per day [Active]; Movantik oral [Active]; - PMHx: 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 - Social history:: Smoking status: Patient reports the use of cigarette tobacco products, denies chronic smoking, but will smoke occasionally. ROS: 19:25 Constitutional: Negative for fever, chills, and weight loss, Eyes: Negative for injury, kdr pain, redness, and discharge, ENT: Negative for injury, pain, and discharge, Neck: Negative for injury, pain, and swelling, Cardiovascular: Negative for chest pain, palpitations, and edema, Respiratory: Negative for shortness of breath, cough, wheezing, and pleuritic chest pain, Back: Negative for injury and pain, : Negative for injury, bleeding, discharge, and swelling, MS/Extremity: Negative for injury and deformity, Skin: Negative for injury, rash, and discoloration, Neuro: Negative for headache, weakness, numbness, tingling, and seizure activity. Psych: Negative for depression, anxiety, suicide ideation, homicidal ideation, and hallucinations, Allergy/Immunology: Negative for hives, rash, and allergies, Endocrine: Negative for neck swelling, polydipsia, polyuria, polyphagia, and marked weight changes, Hematologic/Lymphatic: Negative for swollen nodes, abnormal bleeding, and unusual bruising. 19:25 Abdomen/GI: Positive for abdominal pain, nausea and vomiting, nausea, abdominal cramps, Negative for black/tarry stool, rectal pain, rectal bleeding, bowel incontinence. Exam: 19:25 Constitutional: This is a well developed, well nourished patient who is awake, alert, kdr and in moderate distress. Head/Face: Normocephalic, atraumatic. Eyes: Pupils equal round and reactive to light, extra-ocular motions intact. Lids and lashes normal. Conjunctiva and sclera are non-icteric and not injected. Cornea within normal limits. Periorbital areas with no swelling, redness, or edema. Neck: Trachea midline, no thyromegaly or masses palpated, and no cervical lymphadenopathy. Supple, full range of motion without nuchal rigidity, or vertebral point tenderness. No Meningismus. Chest/axilla: Normal chest wall appearance and motion. Nontender with no deformity. No lesions are appreciated. Cardiovascular: Regular rate and rhythm with a normal S1 and S2. No gallops, murmurs, or rubs. Normal PMI, no JVD. No pulse deficits. Respiratory: Lungs have equal breath sounds bilaterally, clear to auscultation and percussion. No rales, rhonchi or wheezes noted. No increased work of breathing, no retractions or nasal flaring. Back: No spinal tenderness. No costovertebral tenderness. Full range of motion. Skin: Warm, dry with normal turgor. Normal color with no rashes, no lesions, and no evidence of cellulitis. MS/ Extremity: Pulses equal, no cyanosis. Neurovascular intact. Full, normal range of motion. Neuro: Awake and alert, GCS 15, oriented to person, place, time, and situation. Cranial nerves II-XII grossly intact. Motor strength 5/5 in all extremities. Sensory grossly intact. Cerebellar exam normal. Normal gait. Psych: Awake, alert, with orientation to person, place and time. Behavior, mood, and affect are within normal limits. 19:25 Abdomen/GI: Inspection: abdomen appears normal, Bowel sounds: active, diminished, Palpation: soft, mild abdominal tenderness, in the epigastric area, right upper quadrant and left upper quadrant. Vital Signs: 10:19 BP 136 / 88; Pulse 87; Resp 16; Temp 98.6(TE); Pulse Ox 100% on R/A; Weight 65.77 kg; ss Height 5 ft. 3 in. (160.02 cm); 12:27 BP 128 / 82; Pulse 85; Resp 18; Pulse Ox 99% on R/A; ko1 10:19 Body Mass Index 25.69 (65.77 kg, 160.02 cm) MDM: 13:26 Patient medically screened. kdr 19:25 Data reviewed: vital signs, nurses notes, lab test result(s), radiologic studies. kdr Counseling: I had a detailed discussion with the patient and/or guardian regarding: the historical points, exam findings, and any diagnostic results supporting the discharge/admit diagnosis, lab results, radiology results, the need for outpatient follow up. 07/17 10:56 Order name: CBC with Diff; Complete Time: 11:35 kdr 07/17 10:56 Order name: CMP; Complete Time: 11:55 kdr 07/17 10:56 Order name: Lipase; Complete Time: 11:55 kdr 07/17 11:08 Order name: CT Abd/Pelvis - IV Contrast Only; Complete Time: 13:06 kdr 07/17 11:23 Order name: Urine Dipstick-Ancillary; Complete Time: 11:35 EDMS 07/17 11:25 Order name: Urine --Ancillary (enter results); Complete Time: 11:55 eb 07/17 10:56 Order name: IV Saline Lock; Complete Time: 11:25 kdr 07/17 10:56 Order name: Labs collected and sent; Complete Time: 11:25 kdr Administered Medications: 11:16 Drug: NS 0.9% 1000 ml Route: IV; Rate: 1 bolus; Site: right antecubital; ko1 12:11 Drug: Zofran (Ondansetron) 4 mg Route: IVP; Site: right antecubital; ko1 12:11 Drug: ProTONIX (pantoprazole) 40 mg Route: IVP; Site: right antecubital; ko1 12:12 Drug: Dilaudid (HYDROmorphone) 2 mg Route: IVP; Site: right antecubital; ko1 13:38 Drug: GI Cocktail without - (Maalox Suspension 30 ml, Lidocaine Liquid 2 % 15 ko1 ml) Route: PO; 13:52 Drug: Zofran (Ondansetron) 4 mg Route: IVP; Site: right antecubital; ko1 Disposition Summary: 07/17/22 13:26 Discharge Ordered Location: Home kdr Problem: an acute exacerbation kdr Symptoms: have improved kdr Condition: Stable kdr Diagnosis - Abdominal pain, Generalized kdr - Upper abdominal pain, unspecified kdr Followup: kdr - With: Private Physician - When: 2 - 3 days - Reason: If symptoms return, Further diagnostic work-up, Recheck today's complaints, Continuance of care, Re-evaluation by your physician Discharge Instructions: - Discharge Summary Sheet kdr - Abdominal Pain, Adult, [id number] kdr - Diarrhea, Adult, [id number] kdr Forms: - Medication Reconciliation Form kdr - Thank You Letter kdr - Prescription Opioid Use kdr - Work release form ss Prescriptions: - Tylenol-Codeine #3 300 mg-30 mg Oral - take 1 tablet by ORAL route every 4-6 hours; 12 tablet; Refills: 0, Product kdr Selection Permitted Signatures: Dispatcher [employer] EDMS Markell Worthington MD MD kdr Nely Mcdaniel RN RN ss Jess Magaña RN RN ko1 Corrections: (The following items were deleted from the chart) 10:27 10:22 Social history: Smoking status: [facility]
[2022-07-17] MEDS ORDERED: MAGNES/ALUMIN/SIMET 30ML UCUP ONE (13:32)
[2022-07-17] MEDS ORDERED: LIDOCAINE VISCOUS 2% SOLN 15 ML UDC ONE (13:32)
[2022-07-17 14:30] VITALS: TEMP 98.6
[2022-07-17 14:31] VITALS: BP 128/82; O2SAT 99
== END 2022-07-17 14:03 | disposition home or self-care (01) ==
LOC: ER 10:08
DX: R10.13 Epigastric pain (principal); R10.84 Generalized abdominal pain; F17.210 Nicotine dependence, cigarettes, uncomplicated; Z88.0 Allergy status to penicillin; Z88.1 Allergy status to other antibiotic agents; Z88.5 Allergy status to narcotic agent; Z91.040 Latex allergy status; Z91.048 Other nonmedicinal substance allergy status
CPT/HCPCS: 85025; 36415; 81025; 81003; 83690; 80053; 74177; 96375; 96374; 99284; Q9967; C9113; J1170; J7030; J2405 ×2

== ENCOUNTER 2022-07-28 09:49 | Emergency (ER) | payer OTHER ==
--- OUTSIDE RECORDS SUMMARY | 2022-07-28 09:56 | XMS REPORT | Continuity of Care Document ---
:[address] [facility] t Address [address] [place] [address] Support Name Relationship Address Phone ANITA CLEVELAND SP [address] [facility] [place] [id number] ANITA CLEVELAND SP [address] [place] [id number] VIVIANA CLEVELAND Significant [address] [facility] Unavaila ble [place] [id number] JOSE JUAN JEAN BAPTISTE F [address] [place] [id number] Viviana Thompson Significant Other [address] [facility] [address] [phone] [place] [id number] Zay Yanes Significant Other [address] [phone] [place] [id number] ANGELLA CLEVELAND [BF] Unavailable [address] [facility] [phone] [place] [id number] ANGELLA CLEVELAND LP [address] [facility] [phone] [place] [id number] NOONE, ELSE Unavailable [address] [facility] [phone] [place] [id number] NONE, PERSON OT [address] [place] [id number] JOSE JUAN JEAN BAPTISTE Unavailable [address] [facility] [phone] [place] [id number] NONE, TOHER Unavailable [address] [facility] [phone] [place] [id number] VIVIANA CLEVELAND SP [address] [place] [phone] VIVIANA CLEVELAND Unavailable [address] [place] [address] [place] [phone] LONA JEAN BAPTISTE Unavailable . [phone] [place] [address] Care Team Providers Name Role Phone Vivian HUYNH, Yoseph Mendez Primary Care Physician [phone] Rik Escobar Attending Clinician Unavailable LISHA FOSTER Attending Clinician Unavailable Gianna Tyler Attending Clinician Unavailable Jorge Luis Mcdonnell MD Attending Clinician Lia Ashley MA Attending Clinician Unavailable ELBERT DILL Attending Clinician Unavailable Vivian HUYNH, Yoseph Mendez Attending Clinician [phone] Michi Kelley MD Attending Clinician Yoseph Borges MD Attending Clinician [phone] Doctor Unassigned, [place] Attending Clinician Unavailable DONTA QIU Attending Clinician [...] MAO GRUBBS M.D. Attending Clinician Unavailable [place], [facility] Attending Clinician Unavailable Perri Duffy Attending Clinician Ivet Mcfadden RN Attending Clinician Unavailable ALEKS RAMOS M.D. Attending Clinician Unavailable BONITA KRISHNA M.D. Attending Clinician Unavailable Physician, No Primary or Family Admitting Clinician UnavailAlina Vasquez Admitting Clinician Unavailable Referred, Self Admitting Clinician Unavailable Akiko Awad Admitting Clinician Unavailable DONTA QIU Admitting Clinician Unavailable Darien Samayoa Admitting Clinician Unavailable Ye_P Admitting Clinician Unavailable Payers Payer Name Policy Type Policy Number Effective Date Expiration Date [place] mario [facility] [id number] 2018 CHOICE MEDICAID 00:00:00 Problems Condition Condition Condition Status Onset Resolution Last Treating Co mments Source Name Details Category Date Date Treatment Clinician Date Abdominal Abdominal Disease Active Uni vers pain pain 6-26 ity of 00:00: [place] [facility] Inadequate Inadequate Disease Active U nivers pain pain 6-25 ity of control control 00:00: [address] Branch Pain of Pain of Disease Active Univers female female 5-23 [place] [facility] Pain Pain Disease Active Overview: Univrj s pelvic pelvic 5-22 Formattin ity of 00:00: g of this [place] 00 note Medical might be Branch different from the original. Added automatic ally from request for surgery [id number] Irregular Irregular Disease Active Uni vers menstrual menstrual 5-14 ity of cycle cycle 00:00: [place] [facility] Branch Abnormal Abnormal Disease Active Unive rs vaginal vaginal 5-14 ity of bleeding bleeding 00:00: [place] [address] Medical Branch Depo-Prove Depo-Prove Disease Active U azeem ra ra 5-14 ity of contracept [place] duyen status 00 In dical Branch PCOS PCOS Disease Active Univers (polycysti (polycysti 5-14 it y of c ovarian c ovarian 00:[place] syndrome[place] syndrome[place] 00 [facility] Screen for Screen for Disease Active U azeem STD STD 2-06 ity of (sexually (sexually 00:[place] transmitte transmitte 00 Me dical d disease) d disease) Br anch BMI BMI Disease Active 2019- Univers 28.0-28.9, 28.0-28.9, 2-06 it y of adult adult 00:00: [place] 00 [facility] Over Over Disease Active Univers weight weight 2-06 ity of 00:00: [place] [facility] History of History of Disease Active 2018- U nivers seizures seizures 2-06 ity of 00:00: [place] 00 Medical Branch History of History of [...] ty to 09-22 ity of adverse 00:00: [place] reaction 00 Medical s Branch MEPERIDI DRUG Active Rash 2020-09 Univers NE INGREDI 09-22 ity of 00:00: [place] 00 Medical [facility] Latex, DA Active U [facility] 12-27 [place] [facility] 00:00: [facility] doxycycl DA Active U [facility] ine 12-27 [place] 00:00: [facility] amoxicil DA Active U [facility] jami 12-27 [place] 00:00: [facility] tramadol DA Active U [facility] [place] 00:00: [facility] metoclop DA Active U [facility] ramide 12-27 [place] 00:00: [facility] ketorola DA Active U [facility] c 12-27 [place] 00:00: [facility] Latex, DA Active U RASH [facility] Natural 12-27 [place] Rubber 00:00: [facility] doxycycl DA Active U RASH, THROAT HC A ine SWELLING 12-27 [place] 00:00: [facility] amoxicil DA Active U RASH, THROAT HC A jaim SWELLING 12-27 [place] 00:[facility] tramadol DA Active U RASH, THROAT HC A SWELLING - [place] 00:00: [facility] metoclop DA Active U RASH, THROAT HC A ramide SWELLING - [place] 00:00: [facility] ketorola DA Active U RASH, THROAT HC A c SWELLING 12-27 [place] 00:00: [facility] Penicill DA Active SV 2020-1 [facility] ins 2-18 [place] 00:[facility]: [facility] doxycycl DA Active SV 2020-1 [facility] ine 2-18 [place] 00:00: [facility] adhesive DA Active SV 2020-1 [facility] tape 2-18 [place] 00:00: [facility] amoxicil DA Active SV 2020-1 [facility] jami 2-18 [place] 00:00: [facility] lamotrig DA Active SV 2020-1 [facility] ine 2-18 [place] 00:00: [facility] tramadol DA Active SV 2020-1 [facility] 2-18 [place] 00:00: [facility] trazodon DA Active SV 2020-1 [facility] e 2-18 [place] 00:00: [facility] metoclop DA Active SV 2020-1 [facility] ramide 2-18 [place] 00:00: [facility] ketorola DA Active SV 2020-1 [facility] c 2-18 [place] 00:00: [facility] latex DA Active SV 2020-1 [facility] 2-18 [place] 00:00: [facility] Penicill DA Active SV rash 2020-1 [facility] ins 2-18 [place] 00:00: [facility] doxycycl DA Active SV rash 2020-1 [facility] ine 2-18 [place] 00:00: [facility] adhesive DA Active SV raya 2020-1 [facility] tape 2-18 [place] 00:00: [facility] amoxicil DA Active SV rash 2020-1 [facility] jami 2-18 [place] 00:00: [facility] lamotrig DA Active SV rash, sob, 2020-1 [facility] tramadol DA Active SV hives 2020-1 [facility] 2-18 [place] 00:00: [facility] trazodon DA Active SV rash 2020-1 [facility] e 2-18 [place] 00:00: [facility] metoclop DA Active SV rash 2020-1 [facility] ramide 2-18 [place] 00:00: [facility] ketorola DA Active SV hives 2020-1 [facility] c 2-18 [place] 00:00: [facility] latex DA Active SV raya 2020-1 [facility] 2-18 [place] 00:00: [facility] ketorola DA Active U 2020-1 [facility] c 2-10 [place] 00:00: [place] 00 [facility] latex DA Active MO 2020-1 [facility] 2-10 Clear 00:00: [place] 00 [facility] Penicill DA Active U 2020-1 [facility] ins 2-10 Clear 00:00: [place] 00 [facility] doxycycl DA Active U 2020-1 [facility] ine 2-10 Clear 00:00: [place] 00 [facility] adhesive DA Active PA 2020-1 [facility] tape 2-10 Clear 00:00: [place] 00 [facility] amoxicil DA Active U 2020-1 [facility] jami 2-10 Clear 00:00: [place] 00 [facility] Penicill DA Active U RASH 2020-1 [facility] ins 2-10 Clear 00:00: [place] 00 [facility] doxycycl DA Active U RASH 2020-1 [facility] ine 2-10 Clear 00:00: [place] 00 [facility] adhesive DA Active PA RASH 2020-1 [facility] tape 2-10 Clear 00:00: [place] 00 [facility] amoxicil DA Active U RASH 2020-1 [facility] jami 2-10 Clear 00:00: [place] 00 [facility] lamotrig DA Active PA 2020-1 [facility] ine 2-10 Clear 00:00: [place] 00 [facility] lamotrig DA Active PA RASH 2020-1 [facility] ine 2-10 Clear 00:00: [place] 00 [facility] tramadol DA Active U SHORTNESS OF 2020-1 HC A BREATH 2-10 Clear 00:00: [place] 00 [facility] trazodon DA Active U RASH-UNKNOWN 2020- HC A e 2-10 Clear 00:00: [place] 00 [facility] metoclop DA Active SV SHORTNESS OF 2020-1 HC A ramide BREATH 2-10 Clear 00:00: [place] 00 [facility] ketorola DA Active U RASH 2020- [facility] c 2-10 Clear 00:00: [place] 00 [facility] latex DA Active MO RASH 2020- [facility] 2-10 Clear 00:00: [place] 00 [facility] tramadol DA Active U 2020- [facility] 2-10 Clear 00:00: [place] 00 [facility] trazodon DA Active U 2020- [facility] e 2-10 Clear 00:00: [place] 00 [facility] metoclop DA Active SV 2020- [facility] ramide 2-10 Clear 00:00: [place] 00 [facility] Penicill DA Active U 2018- [facility] ins 2-11 Clear 00:00: [place] 00 [facility] doxycycl DA Active U 2018- [facility] ine 2-11 Clear 00:00: [place] 00 [facility] amoxicil DA Active U 2018- [facility] jami 2-11 Clear 00:00: [place] 00 [facility] lamotrig DA Active PA 2018- [facility] ine 2-11 Clear 00:00: [place] 00 [facility] tramadol DA Active U 2018- [facility] 2-11 Clear 00:00: [place] 00 [facility] trazodon DA Active U 2018- [facility] e 2-11 Clear 00:00: [place] 00 [facility] meperidi DA Active U 2018- [facility] ne 2-11 Clear 00:00: [place] 00 [facility] metoclop DA Active SV 2018- [facility] ramide 2-11 Clear 00:00: [place] 00 [facility] ketorola DA Active U 2018- [facility] c 2-11 Clear 00:00: [place] 00 [facility] latex DA Active MO 2018- [facility] 2-11 Clear 00:00: [place] 00 [facility] ketorola DA Active U RASH 2018-1 [facility] [...] 00 l of [place] lamotrig DA Active PA RASH 2017-09 [facility] ine 2-11 [facility] 00:00: [...] 00 l of [place] TAPE DA Active PA RASH 2017-09 [facility] 1-04 Clear 00:00: [place] 00 [facility] Penicill DA Active U 2017-09 [facility] ins -04 [facility] [place] doxycycl DA Active U 2017-09 [facility] ine 1-04 [facility] 00:[facility]: [facility] [place] amoxicil DA Active U 2017-09 [facility] jami 1-04 [facility] 00:[facility]: [facility] [place] lamotrig DA Active PA 2017-09 [facility] ine 1-04 [facility] 00:[facility]: [facility] 00 [facility] [place] tramadol DA Active U 2017-09 [facility] 1-04 [facility] 00:[facility]: [facility] [place] trazodon DA Active U 2017-09 [facility] e -04 [facility] 00:[facility]: [facility] [place] meperidi DA Active U 2017-09 [facility] ne 1-04 [facility] 00:00: Hospita 00 [...] of [place] Meperidi Propensi Active Other (See In thodi ne ty to Comments) 05-08 st adverse 00:00: Hospita reaction 00 l s to drug Penicill DA Active U 2018-0 [facility] ins - [facility] 00:[facility]: [facility] 00 [facility] [place] doxycycl DA Active U 2018-0 [facility] ine 05-08 [facility] 00:00: [facility] [place] amoxicil DA Active U 2018-0 [facility] jami 9 [facility] 00:00: [facility] 00 [facility] [place] lamotrig DA Active PA 2018-0 [facility] ine 05-08 [facility] 00:00: [facility] 00 [facility] [place] tramadol DA Active U 2018-0 [facility] - [facility] 00:[facility]: [facility] 00 [facility] [place] trazodon DA Active U 2018-0 [facility] e 05-08 [facility] 00:00: [facility] 00 [facility] [place] meperidi DA Active U 2018-0 [facility] ne 05-08 [facility] 00:00: [facility] 00 [facility] [place] ketorola DA Active U 2018-0 [facility] c 05-08 [facility] 00:00: [facility] 00 [facility] [place] latex DA Active MO 2018-0 [facility] 05-08 [facility] 00:00: [facility] 00 [facility] [place] Adhesive Propensi Active Rash 0 Transpore Met hodi ty to 6-[address] adverse 00:00: Hospita reaction 00 l s to drug Metoclop Propensi Active Other (See 2018-0 Me thodi ramide ty to Comments) 15 st adverse 00:00: Hospita reaction 00 l [...] 00 Medical Branch METOCLOP DRUG Active SOB 2017-0 Univers RAMIDE INGREDI 6-15 ity of HCL 00:00: [place] 00 [facility] Trazodon Propensi Active Rash 2016-09 Method i e ty to 10-14 st adverse 00:00: Hospita reaction 00 l s to drug Trazodon Propensi Active Rash 2016-09 Univer s e ty to 2-08 ity of adverse 00:00: [place] reaction 00 Medical s Branch TRAZODON DRUG Active Rash 2016- Univers E INGREDI 2-08 ity of 00:00: [place] 00 Medical Branch Doxycycl Propensi Active Swelling 0 Univ ers ine Hcl ty to 7 ity of adverse 00:00: [place] reaction 00 Medical s Branch Latex Propensi Active Rash Univers ty to 7 ity of adverse 00:00: [place] reaction 00 Medical s Branch Penicill Propensi Active Swelling Univ ers ins ty to 7 ity of adverse 00:00: [place] reaction 00 Medical s Branch DOXYCYCL DRUG Active Swelling Univer s INE HCL INGREDI 03-24 ity of 00:00: [place] 00 Medical Branch LATEX DRUG Active Rash Univers INGREDI 03-24 ity of 00:00: [place] 00 Medical Branch PENICILL Drug Active Swelling Univer s INS Class 7 ity of 00:00: [place] 00 [facility] doxycycl DA Active U [facility] ine 7 [facility] 00:00: [facility] 00 [facility] [place] amoxicil DA Active U [facility] jami 03-24 [facility] 00:00: [facility] 00 [facility] [place] lamotrig DA Active PA [facility] ine 7 [facility] 00:00: [facility] 00 [facility] [place] tramadol DA Active U [facility] 03-24 [facility] 00:00: [facility] 00 [facility] [place] latex DA Active MO [facility] 7 [facility] 00:00: [facility] 00 [facility] [place] Ketorola Propensi Active Other (See Me thodi c ty to Comments) 11-19 st adverse 00:00: Hospita reaction 00 l s to drug Penicill Propensi Active Other (See Me thodi ins ty to Comments) 3 st adverse 00:00: Hospita reaction 00 l [...] 00 Medical Branch LAMOTRIG DRUG Active Rash 0 Univers INE INGREDI 3-16 ity of 00:00: [place] 00 Medical Branch KETOROLA DRUG Active Rash 0 Univers C INGREDI 3-16 ity of TROMETHA 00:00: [place] MINE 00 Medical Branch TRAMADOL DRUG Active Rash 2015-0 Univers INGREDI 3-16 ity of 00:00: [place] 00 Medical Branch Doxycycl Propensi Active Swelling 2014-09 Meth [...] Quantity Comments Source History of Smokes tobacco [facility] tobacco use daily Hospital History [facility] University o f Alcohol Frequency [place] [facility] History [facility] University o f Alcohol Std [place] [facility] Drinks Branch History [facility] University o f Alcohol Binge [place] [facility] Alcohol intake 2022-01-20 2022-01-20 Current drinker [facility] dist 00:00:00 00:00:00 of alcohol Hospital (finding) Exposure to 2021-10-17 2021-11-16 Not sure University SARS-CoV-2 00:00:00 20:21:00 [facility] (event) [place] Alcohol Comment 2021-06-13 2021-06-13 occasional Church 00:00:00 00:00:00 Hospital Tobacco use and 2021-06-13 2021-06-13 Smokeless tobacco [facility] exposure 00:00:00 00:00:00 non-user Hospital Sex Assigned At [birth year] [facility] 00:00:00 00:00:00 Hospital Smoking Status Start Date Stop Date Source Never smoked tobacco [facility]finding[facility] Smokes tobacco daily 2021-06-13 00:00:00 [facility] Current some day smoker 2018-05-03 00:00:00 [facility] Medications Ordered Filled Start Stop Current Ordering Indication Dosage Frequency Signature Comments Components Source Medication Medication Date Date Medication? Clinician (SIG) Name Name HYDROcodone 2021- No 1{tbl} Q6H Take 1 Methodi -acetaminop 5-17 05-[address] Lime[facility] (AutoNavi) 13:50: 00:00 mouth [facility] 10-325 mg 15 :00 every 6 l per tablet (six) hours as needed .acute pain. prn HYDROcodone 2021- No [id number] 1{tbl} Q6H Take 1 Methodi -acetaminop 5-17 05-[address] [facility]imeade (AutoNavi) 13:50: 00:00 mouth [facility] 10-325 mg 15 :00 every 6 l per tablet (six) hours as needed .acute pain. prn HYDROcodone 2021- No [id number] 1{tbl} Q6H Take 1 Methodi -acetaminop 5-17 05-[address] [facility] (AutoNavi) 13:50: 00:00 mouth [facility] 10-325 mg 15 :00 every 6 l per tablet (six) hours as needed .acute pain. prn tiZANidine 2021- No 4mg Q8H Take 4 mg M ethodi (ZANAFLEX) 5-17 05-[address] 4 MG tablet 13:37: 00:00 every 8 Ho spita 02 :00 (eight) l hours as needed for muscle spasms. tiZANidine 2022-0 2022- No 4mg Q8H Take 4 mg M ethodi (ZANAFLEX) 5-17 05-[address] 4 MG tablet 13:37: 00:00 every 8 Ho spita 02 :00 (eight) l hours as needed for muscle spasms. tiZANidine 2022-0 2022- No 4mg Q8H Take 4 mg M ethodi (ZANAFLEX) 5-17 05-[address] 4 MG tablet 13:37: 00:00 every 8 Ho spita 02 :00 (eight) l hours as needed for muscle spasms. pregabalin 2022-0 Yes 75mg Q.5D Take 75 [...] st mg/0.8 mL 13:10: the skin Hosp [facility] injection 03 every 7 l days. adalimumab 2022-0 Yes 40mg Q1W Inject 40 Me thodi (Humira) 40 5-[address] mg/0.8 mL 13:10: the skin Hosp [facility] injection 03 every 7 l days. buPROPion 2022-0 Yes 300mg QD Take 300 Met hodi XL 5-[address] (WELLBUTRIN 13:10: mouth Hospi ta XL) 300 MG 03 every l 24 hr morning. tablet diazePAM 2022-0 Yes 10mg Q12H Take 10 mg Met hodi (VALIUM) 10 5-[address] MG tablet 13:09: every 12 Hosp [facility] 39 (twelve) l hours as needed for anxiety. meloxicam 2022-0 Yes 7.5mg Q12H Take 7.5 Met hodi (MOBIC) 7.5 5-[address] mg tablet 13:09: mouth Hospita 39 every 12 l (twelve) hours as needed. cyclobenzap 2022-0 Yes 10mg Q.[id number] Take 10 mg Methodi rine 5-17 [id number] [address] mouth [address] (FLEXERIL) 13:09: 3D [...] hours as needed. cyclobenzap 2022-0 Yes 10mg Q.[id number] Take 10 mg Methodi rine 5-17 [id number] [address] mouth [address] (FLEXERIL) 13:09: 3D (three) Hosp [facility] 10 mg 39 times a l tablet day as needed for muscle spasms. cyclobenzap 2022-0 Yes 10mg Q.[id number] Take 10 mg Methodi rine 5-17 [id number] [address] mouth [address] (FLEXERIL) 13:09: 3D [...] (twelve) hours as needed. HYDROcodone 2021- No [id number] 1{tbl} Q6H Take 1 Methodi -acetaminop 5-17 06-[address] hen (AutoNavi) 00:00: 04:59 mouth [facility] 10-325 mg 00 :00 every 6 l per tablet (six) hours as needed for severe pain for up to 30 days .chronic pain. prn Max Daily Amount: 4 tablets [place]DROcodone 2021- [place] [id number] 1{tbl} Q6H Take 1 Methodi -acetaminop 5-17 06-[address] hen (AutoNavi) 00:00: 04:59 mouth [facility] 10-325 mg 00 :00 every 6 l per tablet (six) hours as needed for severe pain for up to 30 days .chronic pain. prn Max Daily Amount: 4 tablets [place]DROcodone 2021- [place] [id number] 1{tbl} Q6H Take 1 Methodi -acetaminop 5-17 06-[address] [facility] (AutoNavi) 00:00: 04:59 mouth [facility] 10-325 mg [...] hours as needed. diazePAM 2021- No 10mg Q12H Take 1 [...] up to 60 days. diazePAM 2020-09- No [id number] 10mg Q12H Take 1 Me thodi (VALIUM) 10 10-15 tablet (10 s t MG tablet 00:00: 05:59 mg total) Ho spita 00 :00 by mouth l every 12 (twelve) hours as needed for anxiety for up to 30 days. diazePAM 2020-09- No [id number] 10mg Q12H Take 1 Me thodi (VALIUM) 10 10-15 tablet (10 s t MG tablet 00:00: 05:59 mg total) Ho spita 00 :00 by mouth l every 12 (twelve) hours as needed for anxiety for up to 30 days. diazePAM 2020-09- No [id number] 10mg Q12H Take 1 Me thodi (VALIUM) 10 10-15 tablet (10 s t MG tablet 00:00: 05:59 mg total) Ho spita 00 :00 by mouth l every 12 (twelve) hours as needed for anxiety for up to 30 days. diazePAM 2020-09- No 10mg Q12H Take 1 Method i (VALIUM) 10 10-15- tablet (10 s t MG tablet 00:00: 00:00 mg total) Ho spita 00 :00 by mouth l every 12 (twelve) hours as needed for anxiety for up to 30 days. diazePAM 2020-09- No 10mg Q12H Take 1 Method i (VALIUM) 10 10-15- tablet (10 s t MG tablet 00:00: 00:00 mg total) Ho spita 00 :00 by mouth l every 12 (twelve) hours as needed for anxiety for up to 30 days. diazePAM 2020-09- No 10mg Q12H Take 1 Method i (VALIUM) 10 10-15- tablet (10 s t MG tablet 00:00: [...] Q12H Take 1 Method i (VALIUM) 10 10-14- tablet (10 s t MG tablet 00:00: 00:00 mg total) Ho spita 00 :00 by mouth l every 12 (twelve) hours as needed for anxiety for up to 30 days. diazePAM 2020-09- No 10mg Q12H Take 1 Method i (VALIUM) 10 10-14- tablet (10 s t MG tablet 00:00: [...] as needed for anxiety. diazePAM 2020-09- No [id number] 10mg Q12H Take 1 Me thodi (VALIUM) 10 09-09 12-05 tablet (10 s t MG tablet 00:00: 05:59 mg total) Ho spita 00 :00 by mouth l every 12 (twelve) hours as needed for anxiety for up to 30 days. diazePAM 2020-09- No [id number] 10mg Q12H Take 1 Me thodi (VALIUM) 10 09-09 12- tablet (10 s t MG tablet 00:00: 05:59 mg total) Ho spita 00 :00 by mouth l every 12 (twelve) hours as needed for anxiety for up to 30 days. diazePAM 2020-09- No [id number] 10mg Q12H Take 1 Me thodi (VALIUM) 10 09-09 tablet (10 s t MG tablet 00:00: 05:59 mg total) Ho spita 00 :00 by mouth l every 12 (twelve) hours as needed for anxiety for up to 30 days. azithromyci 2020-09- No [id number] 250mg QD Take 1 Methodi n 07-[address] (Zithromax 00:00: 00:00 (250 mg Hos teddy Z-Anson) 250 00 :00 total) by l MG tablet mouth daily. Take 2 tablets the first day, then 1 tablet daily for 4 days. pantoprazol Yes [id number] 40mg Take 1 Univers e 4-18 tablet by ity of (PROTONIX) 00:00: mouth [place] 40 mg EC 00 daily. Medical tablet Branch dicyclomine 2020-0 Yes [id number] 20mg Take 1 Univers 20 mg 4-18 tablet by ity of tablet 00:00: mouth [place] 00 every 6 Medical (six) Branch hours as needed for Abdominal pain. ondansetron 2020-0 Yes [id number] 4mg Take 1 Univers (ZOFRAN) 4 4-18 tablet by ity of mg tablet 00:00: mouth [place] 00 every 8 Medical (eight) Branch hours as needed for Nausea and Vomiting (N/V). pantoprazol 2020-0 Yes [id number] 40mg Take 1 Univers e 4-18 tablet by ity of (PROTONIX) 00:00: mouth [place] 40 mg EC 00 daily. Medical tablet Branch dicyclomine 2020-0 Yes [id number] 20mg Take 1 Univers 20 mg 4-18 tablet by ity of tablet 00:00: mouth [place] 00 every 6 Medical (six) Branch hours as needed for Abdominal pain. ondansetron 2020-0 Yes [id number] 4mg Take 1 Univers (ZOFRAN) 4 4-18 tablet by ity of mg tablet 00:00: mouth [place] 00 every 8 Medical (eight) Branch hours as needed for Nausea and Vomiting (N/V). pantoprazol 2020-0 Yes [id number] 40mg Take 1 Univers e 4-18 tablet by ity of (PROTONIX) 00:00: mouth [place] 40 mg EC 00 daily. Medical tablet Branch dicyclomine 2020-0 Yes [id number] 20mg Take 1 Univers 20 mg 4-18 tablet by ity of tablet 00:00: mouth [place] 00 every 6 Medical (six) Branch hours as needed for Abdominal pain. ondansetron 2020-0 Yes [id number] 4mg Take 1 Univers (ZOFRAN) 4 4-18 [...] TIMES ans 00 DAILY NEEDED. Ondansetron Ondansetron 2019-0 Yes SAMIR Take one 4 UT HCl - 4 MG HCl - 4 MG 6-10 DYKES M.D. mg pill po [facility] Oral Tablet Oral Tablet 00:00: when ans 00 feeling nauseated. Do not take more than two pills daily. Fluconazole Fluconazole 2019-0 Yes JUNE TAKE 1 UT 150 MG Oral 150 MG Oral 5-29 [place] TABLET 1 Physici Tablet Tablet 00:00: D.O. TIME ONLY. ans 00 metroNIDAZO metroNIDAZO 2019-0 Yes JUNE Q0.5D TAKE 1 UT LE 500 MG LE 500 MG 5-28 [place] TABLET [facility] Oral Tablet Oral Tablet 00:00: D.O. TWICE ans 00 DAILY UNTIL FINISHED. nystatin 2020-0 Yes [id number] Apply to Univers 100,000 2-05 affected ity of unit/gram 00:00: area(s) 3 Zay as ointment 00 (three) Medical times Branch daily. nystatin 2020-0 Yes [id number] Apply to Univers 100,000 2-05 affected ity of unit/gram 00:00: area(s) 3 Zay as ointment 00 (three) Medical times Branch daily. nystatin 2020-0 Yes [id number] Apply to Univers 100,000 2-05 affected ity of unit/gram 00:00: area(s) 3 Zay as ointment 00 (three) Medical times Branch daily. levoFLOXaci levoFLOXaci 2018- Yes MAO QD TAKE 1 UT n 500 MG n 500 MG 0-23 GRUBBS TABLET Ph ysici Oral Tablet Oral Tablet 00:00: M.D. DAILY ans 00 UNTIL FINISHED. metroNIDAZO metroNIDAZO 2018- Yes MAO Q0.5D TAKE 1 UT LE [...] Reconstitut ed ed Sprintec 28 Sprintec 28 2019-1 Yes MAO 1 QD TAKE 1 UT 0.25-35 0.25-35 0-23 GRUBBS TABLET Phys ici MG-MCG Oral MG-MCG Oral 00:00: M.D. DAILY ans Tablet Tablet 00 DIRECTED. medroxyPROG Yes [id number] 150mg Univers ESTERone 5-14 ity of (DEPO-PROVE 18:30: [place] RA) 00 Medical injection Branch 150 mg medroxyPROG 2019- Yes [id number] 150mg Univers ESTERone 5-14 ity of (DEPO-PROVE 18:30: [place] [facility]) 00 Medical injection Branch 150 mg medroxyPROG 2018- Yes [id number] 150mg Univers ESTERone 5-14 ity of (DEPO-PROVE 18:30: [place] RA) 00 Medical injection Branch 150 mg Keppra 500 Keppra 500 2018- Yes M.D. U T MG Oral MG Oral 1-02 Physici Tablet Tablet 00:00: ans 00 Immunizations Ordered Immunization Filled Immunization Date Status Commen ts Source Name Name Amuso COVID-19 MRNA 2021-08-06 Completed Meth odist VACCINATION 00:00:00 [facility] PFIZER COVID-19 MRNA 2021-07-09 Completed Meth odist VACCINATION 00:00:00 [facility] PFIZER COVID-19 MRNA 2021-07-09 Completed Meth odist VACCINATION 00:00:00 [facility] PFIZER COVID-19 MRNA 2021-07-09 Completed Meth odist VACCINATION 00:00:00 Hospital Vital Signs Vital Name Observation Time Observation Value Comments Source Systolic blood 2022-01-20 123 mm[Hg] [facility] pressure 18:11:00 [facility] Diastolic blood 2022-01-20 85 mm[Hg] [facility] pressure 18:11:00 Hospital Heart rate 2022-01-20 88 /min [facility] 18:11:00 [facility] Body temperature 2022-01-20 36.28 Alisha [facility] 18:11:00 Hospital Respiratory rate 2022-01-20 20 /min [facility] 18:11:00 Hospital Body height 2022-01-20 160 cm [facility] 18:11:00 [facility] Body weight 2022-01-20 66.225 kg [facility] 18:11:00 [facility] BMI 2022-01-20 25.86 kg/m2 [facility] 18:11:00 Hospital Oxygen saturation 2022-01-20 99 /min [facility] in Arterial blood 18:11:00 Hospital by Pulse [...] BP Systolic 2019-06-28 130 mm[Hg] Location: RUE; [facility] 16:14:00 Position: Sitting BP Diastolic 2019-06-28 82 mm[Hg] Location: RUE; [facility] 16:14:00 Position: Sitting Height 2019-06-28 67 [...] Performed CT SPINE EXTERNAL STUDY 2021-11-28 20:02:53 [facility] CT SPINE EXTERNAL STUDY 2021-11-28 19:57:48 [facility] CT SPINE EXTERNAL STUDY 2021-11-28 19:52:18 [facility] REFERRAL- 2021-11-21 05:01:00 Doctor Unassigned, No [facility] REQUEST/RESPONSE Name Medical Branch MRI SPINE EXTERNAL 2021-10-09 18:17:21 Jorge Luis [facility] STUDY [QL] CBC (INCLUDES 2020-02-16 00:00:00 UT [...] UT Physician s Transvaginal and Pelvic Doppler 60273 History of Dental [facility] surgery History of [facility] Physician s section low transverse Plan of Care Planned Activity Planned Date Details Comments Source Future Scheduled 2022-07-24 Pneumococcal Vaccine: [facility] Test 21:51:51 Pediatrics (0 to 5 Years) and At-Risk Patients (6 to 64 Years) (1 - PCV) [code = Pneumococcal Vaccine: Pediatrics (0 to 5 Years) and At-Risk Patients (6 to 64 Years) (1 - PCV)] Future Scheduled 2022-07-24 Hepatitis C screening [facility] Test 21:51:51 (procedure) [code = 954892878] Future Scheduled 2022-07-24 [facility] Test 21:51:51 malignant neoplasm of cervix (procedure) [code = 611674800] Future Scheduled 2022-07-24 COVID-19 VACCINE (3 - [facility] Test 21:51:51 Booster for Pfizer series) [code = COVID-19 VACCINE (3 - Booster for Pfizer series)] Future Scheduled 2022-07-24 [facility]UENZA VACCINE [facility] 21:51:51 [code = INFLUENZA VACCINE] Future Scheduled 2022-07-15 Pneumococcal Vaccine: [facility] Test 15:03:03 Pediatrics (0 to 5 Years) and At-Risk Patients (6 to 64 Years) (1 - PCV) [code = Pneumococcal Vaccine: Pediatrics (0 to 5 Years) and At-Risk Patients (6 to 64 Years) (1 - PCV)] Future Scheduled 2022-07-15 Hepatitis C screening [facility] Test 15:03:03 (procedure) [code = 595181253] Future Scheduled 2022-07-15 [facility] Test 15:03:03 malignant neoplasm of cervix (procedure) [code = 499091745] Future Scheduled 2022-07-15 COVID-19 VACCINE (3 - [facility] Test 15:03:03 Booster for Pfizer series) [code = COVID-19 VACCINE (3 - Booster for Pfizer series)] Future Scheduled 2022-07-15 IN[facility]ENZA VACCINE [facility] 15:03:03 [code = INFLUENZA VACCINE] Future Scheduled 2022 Pneumococcal Vaccine: [facility] Test 09:54:03 Pediatrics (0 to 5 Years) and At-Risk Patients (6 to 64 Years) (1 - PCV) [code = Pneumococcal Vaccine: Pediatrics (0 to 5 Years) and At-Risk Patients (6 to 64 Years) (1 - PCV)] Future Scheduled 2022 Hepatitis C screening [facility] Test 09:54:03 (procedure) [code = 721853134] Future Scheduled 2022 [facility] Test 09:54:03 malignant neoplasm of cervix (procedure) [code = 105350706] Future Scheduled 2022 COVID-19 VACCINE (3 - [facility] Test 09:54:03 Booster for Pfizer series) [code = COVID-19 VACCINE (3 - Booster for Pfizer series)] Future Scheduled 2022 INFLUENZA VACCINE [facility] Test 09:54:03 [code = INFLUENZA VACCINE] Encounters Start End Encounter Admission Attending Care Care Encounter Source Date/Time Date/Time Type Type Clinicians Facility Department ID 2021-07-06 Emergency [facility] [id number] [facility] 13:36:32 ity [facility] 2021-07-04 Emergency [facility] [id number] Univers 11:22:30 ity [facility] 2021-07-04 Emergency [facility] [id number] [facility] 2021-01-09 Inpatient [facility] MALISSA [id number] [facility] 10:52:00 [id number] [facility] 2020-12-27 Inpatient [facility] MALISSA [id number] [facility] 20:29:00 65 [facility] 2020-12-26 Inpatient CLAUDETTE Escobar, [facility] ENDO [id number] [facility] 10:00:00 Rik 01 [facility] 2020-12-22 Inpatient [facility] [id number] [facility] 23:08:15 49 [facility] 2020-08-23 Inpatient [facility] MALISSA [id number] [facility] 09:10:00 26 [facility] 2020-08-05 Inpatient [facility] MALISSA [id number] [facility] 20:55:00 [facility] 2020-02-20 Outpatient BHMIRYAM, [facility] 75[address] [facility] 10:04:01 LISHA 2022-08-03 2022-08-03 Inpatient CLAUDETTE Tyler, [facility] OUTD [id number] [facility] 11:30:00 11:30:00 [facility] 2022-07-23 2022-07-23 [facility], 1.2.840.1 [id number] Methodi 10:30:00 10:30:00 Encounter Jorge Luis 04518.1.1 209 s t 3.430.2.7 Hospit a .3.206654 l .8 2022-07-23 2022-07-23 Telephone Gabi, 1.2.840.1 [id number] [id number] Methodi 00:00:00 00:00:[address] 3.430.2.7 Hospit a .3.462457 l .8 2022-07-07 2022-07-07 Outpatient LONA DILL [id number] Lona 10:45:00 10:45:00 ELBERT soriano 2022-07-06 2022-07-06 Travel 1.2.840.1 1.2.166.328 1253 [id number] Methodi 00:00:00 00:00:[address] 3.430.2.7 0.2.7.3.698 Ho spita .3.882467 084.8 l .8 2022-07-06 2022-07-06 Travel 1.2.840.1 1.2.706.847 3697 [id number] Methodi 00:00:00 00:00:[address] 3.430.2.7 0.2.7.3.698 Ho spita .3.103941 084.8 l .8 2022-06-15 2022-06-16 [facility], 1.2.840.1 [id number] 2100 [id number] Methodi 14:15:00 11:08:59 Visit Jorge Luis 21022.1.[address] 3.430.2.7 Hospit a .3.838935 l .8 2022-06-15 2022-06-16 [facility], 1.2.840.1 [id number] 2099 [id number] Methodi 14:15:00 11:08:59 Visit Jorge Luis 31920.1.[address] 3.430.2.7 Hospit a .3.794558 l .8 2022-06-15 2022-06-15 [facility], 1.2.840.1 [id number] 439 [id number] Methodi 14:15:15 23:59:00 Encounter Jorge Luis 46668.1.1 971 s t 3.430.2.7 Hospit a .3.306873 l .8 2022-06-15 2022-06-15 [facility], 1.2.840.1 [id number] 932 [id number] Methodi 14:15:15 23:59:00 Encounter Jorge Luis 33754.1.1 971 s t 3.430.2.7 Hospit a .3.944300 l .8 2022-06-15 2022-06-15 [facility], 1.2.840.1 [id number] Methodi 14:15:13 23:59:00 Encounter Jorge Luis 81323.1.1 963 s t 3.430.2.7 Hospit a .3.531099 l .8 2022-06-15 2022-06-15 [facility], 1.2.840.1 [id number] 894 [id number] Methodi 14:15:13 23:59:00 Encounter Jorge Luis 46438.1.1 963 s t 3.430.2.7 Hospit a .3.238878 l .8 2022-06-15 2022-06-15 [facility], 1.2.840.1 [id number] 579 [id number] Methodi 14:13:36 14:14:00 Encounter Jorge Luis 68316.1.1 680 s t 3.430.2.7 Hospit a .3.750554 l .8 2022-06-15 2022-06-15 [facility], 1.2.840.1 [id number] 034 [id number] Methodi 14:13:36 14:14:00 Encounter Jorge Luis 00001.1.1 680 s t 3.430.2.7 Hospit a .3.704309 l .8 2022-06-15 2022-06-15 [facility], 1.2.840.1 [id number] 681 [id number] Methodi 14:12:01 14:12:01 Encounter Jorge Luis 45996.1.1 418 s t 3.430.2.7 Hospit a .3.934855 l .8 2022-06-15 2022-06-15 [facility], 1.2.840.1 [id number] 320 [id number] Methodi 14:12:01 14:12:01 Encounter Jorge Luis 22165.1.1 418 s t 3.430.2.7 Hospit a .3.012176 l .8 2022-06-15 2022-06-15 [facility], 1.2.840.1 [id number] 2100 [id number] Methodi 00:00:00 00:00:00 Only Jorge Luis 78360.1.[address] 3.430.2.7 Hospit a .3.093529 l .8 2022-06-15 2022-06-15 Travel 1.2.840.1 1.2.974.031 0043 [id number] Methodi 00:00:00 00:00:[address] 3.430.2.7 0.2.7.3.698 Ho spita .3.789907 084.8 l .8 2022-06-15 2022-06-15 Orders Sathya, 1.2.840.1 [id number] 2099 [id number] Methodi 00:00:00 00:00:00 Only Jorge Luis 28250.1.[address] 3.430.2.7 Hospit a .3.902919 l .8 2022-06-15 2022-06-15 Travel 1.2.840.1 1.2.152.207 2090 [id number] Methodi 00:00:00 00:00:[address] 3.430.2.7 0.2.7.3.698 Ho spita .3.586190 084.8 l .8 2022-06-11 2022-06-11 Travel 1.2.840.1 1.2.684.128 2220 [id number] Methodi 00:00:00 00:00:[address] 3.430.2.7 0.2.7.3.698 Ho spita .3.983961 084.8 l .8 2022-06-11 2022-06-11 Travel 1.2.840.1 1.2.143.430 9536 496402 Methodi 00:00:00 00:00:[address] 3.430.2.7 0.2.7.3.698 Ho spita .3.332993 084.8 l .8 2022-02-17 2022-02-17 Refill Vivian, 1.2.840.1 [id number] 2099 [id number] Methodi 00:00:00 00:00:[address] [place] [address] Andrea 3.430.2.7 Hospit a .3.494957 l .8 2022-02-17 2022-02-17 Refill Vivian, 1.2.840.1 [id number] 2099 [id number] Methodi 00:00:00 00:00:[address] [place] [address] Andrea 3.430.2.7 Hospit a .3.043647 l .8 2022-01-20 2022-01-20 Office Vivian, 1.2.840.1 [id number] 2100 [id number] Methodi 13:00:00 13:57:49 Visit [place] 72171.1.[address] Andrea 3.430.2.7 Hospit a .3.049013 l .8 2022-01-20 2022-01-20 Office Vivian, 1.2.840.1 [id number] 2099 [id number] Methodi 13:00:00 13:57:49 Visit [place] 61164.1.1 850 [facility] 3.430.2.7 Hospit a .3.438126 l .8 2022-01-20 2022-01-20 Travel 1.2.840.1 1.2.424.548 6331 [id number] Methodi 00:00:00 00:00:[address] 3.430.2.7 0.2.7.3.698 Ho spita .3.144482 084.8 l .8 2022-01-20 2022-01-20 Telephone GEORGIE Kelley 1.2.840.114 [id number] Univers 00:00:00 00:00:00 [facility] 350.1.13.10 ity rey SÁNCHEZ 4.2.7.2.686 [facility] [id number] [facility] AND [address] [facility] 2022-01-20 2022-01-20 Travel 1.2.840.1 1.2.830.561 1251 [id number] Methodi 00:00:00 00:00:[address] 3.430.2.7 0.2.7.3.698 Ho spita .3.922348 084.8 l .8 2022-01-19 2022-01-19 [facility] 1.2.840.114 [id number] Univers 00:00:00 00:00:00 Yoseph LOPEZ 350.1.13.10 ity of Andrea SÁNC[place] 4.2.7.2.686 [facility] [phone] [facility] AND [place] 011 Branch [facility] 2021-11-21 2021-11-21 Orders Doctor SUDHA 1.2.840.114 [id number] Univers 00:00:00 00:00:00 Only Unassigned, ALEM 350.1.13.10 ity of [facility] 4.2.7.2.686 [facility] [id number] [facility] 009 Branch 2021-11-17 2021-11-18 Emergency X [facility] ERT [id number] Univers 19:45:00 00:44:00 [facility] 2021-11-17 2021-11-18 Emergency [facility] 1.2.652.400 [id number] Univers 19:45:00 00:44:00 Donta GUERRERO 350.1.13.[address] [facility] 4.2.7.2.686 [facility] [id number] [facility] 084 Branch 2021-11-16 2021-11-16 Emergency X [facility] [id number] Univers 20:28:00 21:58:00 MILADYS [facility] 2021-11-16 2021-11-16 Emergency [facility] 1.2.243.380 [id number] Univers 20:28:00 21:58:00 Miladys GUERRERO 350.1.13.10 ity [facility] 4.2.7.2.686 [facility] [id number] [facility] 084 Branch 2021-10-02 2021-10-02 Emergency EM Wang, SALENA MALISSA [id number] [facility] 16:59:00 20:32:00 Hung [id number] [facility] 2021-10-02 2021-10-02 Emergency EM EDDOC, SALENA MARTINO [id number] [facility] 16:59:00 20:32:00 GENERIC 76 [facility] 2021-10-01 2021-10-01 Refill Vivian, 1.2.840.1 [id number] 2099 [id number] Methodi 00:00:00 00:00:[address] Andrea 3.430.2.7 Hospit a .3.006816 l .8 2021-10-01 2021-10-01 Refrajesh Vivian, 1.2.840.1 [id number] 2099 [id number] Methodi 00:00:00 00:00:[address] [place] [address] Andrea 3.430.2.7 Hospit a .3.691667 l .8 2021-09-30 2021-09-30 Emergency [facility] [id number] Univers 13:31:00 16:34:00 AWILDA calixto [facility] 2021-09-30 2021-09-30 Emergency Elisa [facility] 1.2.840.114 [id number] Univers 13:31:00 16:34:00 Awilda [facility] 4.2.7.2.686 [facility] [id number] [address] 2021-08-14 2021-08-14 Refill Gutierres, 1.2.840.1 [id number] 21 [id number] Methodi 00:00:00 00:00:[address] 3.430.2.7 Hospit a .3.854998 l .8 2021-08-14 2021-08-14 Refill Gutierres, 1.2.840.1 [id number] 21 [id number] Methodi 00:00:00 00:00:[address] 3.430.2.7 Hospit a .3.032111 l .8 2021-08-12 2021-08-12 Refill Gutierres, 1.2.840.1 [id number] Methodi 00:00:00 00:00:[address] 3.430.2.7 Hospit a .3.827444 l .8 2021-08-12 2021-08-12 Refill Nenita, 1.2.840.1 [id number] 21 [id number] Methodi 00:00:00 00:00:[address] 3.430.2.7 Hospit a .3.909353 l .8 2021-07-23 2021-07-23 Emergency X [facility] ERT [id number] Univers 16:14:00 17:06:[address] [facility] 2021-07-23 2021-07-23 Emergency [facility] 1.2.836.811 [id number] Univers 16:14:00 17:06:00 YOLANDA 350.1.13.10 i ty [facility] 4.2.7.2.686 [facility] [id number] [place] [address] Branch 2021-07-23 2021-07-23 Emergency EM White, HCACL AERS [id number] [facility] 13:58:00 14:24:00 Burak [id number] [facility] 2021-07-23 2021-07-23 Emergency EM White, HCACL HCACL [id number] [facility] 13:58:00 14:24:00 Burak 69 [facility] 2021-07-10 2021-07-10 Telemedici Vivian, 1.2.840.1 [id number] Methodi 08:30:00 09:02:51 ne [place] 84971.1.[address] Andrea 3.430.2.7 Hospit a .3.101447 l .8 2021-07-09 2021-07-09 Travel 1.2.840.1 1.2.054.520 2681 [id number] Methodi 00:00:00 00:00:[address] 3.430.2.7 0.2.7.3.698 Ho spita .3.305134 084.8 l .8 2021-06-13 2021-06-13 Outpatient [facility] [id number] [place] 00:00:00 00:00:[address] 2021-04-17 2021-04-17 Emergency E LOLITA WASSERMAN SE MED [id number] 16:40:00 19:42:00 [facility] 2021-03-30 2021-03-30 Emergency E DINORAH SATURNINO MED [id number] [facility]BL 00:46:00 06:26:00 SAB 2021-01-15 2021-01-15 Outpatient ITALIA Escobar OUTD [id number] [facility] 08:00:00 08:00:00 Rik [id number] [facility] 2021-01-09 2021-01-09 Emergency E LOLITA WASSERMAN SE MED 7513 12:29:00 16:41:00 [facility] 2020-12-26 2020-12-26 Emergency [facility] [id number] [place] [address] 00:00:00 00:00:[address] 2020-12-21 2020-12-22 Emergency [facility] 1.2.195.588 [id number] [id number] [facility] 22:42:00 02:02:00 Miladys Guerrero 350.1.13.10 ity of [place] 4.2.7.2.[address] [place] [address] [id number] [facility] 084 Branch 2020-12-21 2020-12-22 Emergency [facility] 1.2.003.135 [id number] 22:42:00 02:02:00 Miladys Guerrero 350.1.13.10 [place] [address] [place] [address] [id number] 08 2020-12-21 2020-12-21 Orders Doctor SUDHA 1.2.840.114 [id number] Univers 00:00:00 00:00:00 Only Unassigned, ALEM 350.1.13.10 ity [place] [facility] 4.2.7.[address] [place] [address] [id number] [facility] 009 Branch 2020-12-21 2020-12-21 Orders Doctor SUDHA 1.2.840.114 [id number] 30 00:00:00 00:00:00 Only Unassigned, ALEM 350.1.13.10 [facility] 4.2.7.2.686 [id number] 009 2020-08-15 2020-08-19 Inpatient [facility] [id number] [facility] 14:57:00 06:49:15 39 [facility] 2020-08-15 2020-08-15 Emergency [facility] 1.2.232.642 [id number] Univers 03:26:00 06:17:00 Donta Guerrero 350.1.13.10 i ty of [place] 4.2.7.2.686 [facility] [id number] [address] 2020-08-15 2020-08-15 Emergency X GUAYANILLA, [facility] ERT [id number] Univers 03:26:00 06:17:00 DONTA ity [facility] 2020-08-15 2020-08-15 Emergency [facility] 1.2.530.000 [id number] 03:26:00 06:17:00 Donta Guerrero 350.1.13.10 [place] [address] [place] [address] [id number] [facility] 2020-04-13 2020-04-13 [facility] 1.2.840.114 [id number] Univers 19:38:00 23:40:00 Awilda Guerrero 350.1.13.10 ity of [place] 4.2.7.2.[address] [place] [id number] 2020-04-13 2020-04-13 [facility] 1.2.840.114 [id number] 19:38:00 23:40:00 Awilda Guerrero 350.1.13.10 [place] [address] [place] [address] [id number] [facility] 2020-04-13 2020-04-13 Orders Doctor HALEY 1.2.840.114 [id number] Univers 00:00:00 00:00:00 Only Unassigned, ALEM 350.1.13.10 ity of [place] [facility] 4.2.7.2.686 [facility] [id number] [address] 2020-04-13 2020-04-13 Orders Doctor HALEY 1.2.840.114 [id number] 00:00:00 00:00:00 Only Unassigned, ALEM 350.1.13.10 [facility] 4.2.7.2.686 [id number] 009 2020-04-10 2020-04-10 Emergency Meehan, [facility] 1.2.053.811 [id number] [facility] 15:39:00 19:05:00 Huy Guerrero 350.1.13.10 i ty of [place] 4.2.7.2.686 [facility] [phone] [facility] 084 Branch 2020-04-10 2020-04-10 Emergency Meehan, [facility] 1.2.653.233 [id number] 5068 15:39:00 19:05:00 Huy [place] 350.1.13.10 [place] 4.2.7.2.686 [place] [id number] 08 2020-04-10 2020-04-10 Orders Doctor SUDHA 1.2.840.114 [id number] Univers 00:00:00 00:00:00 Only Unassigned, ALEM 350.1.13.10 [facility]y [facility] [place] [facility] 4.2.7.2.686 [facility] [id number] [facility] 009 Branch 2020-04-10 2020-04-10 Orders Doctor SUDHA 1.2.840.114 [id number] 10 00:00:00 00:00:00 Only Unassigned, ALEM 350.1.13.10 [facility] 4.2.7.2.686 [id number] 009 2020-03-11 2020-03-[address] [facility] Obstetrics [id number] [place] 10:00:00 10:00:00 t; Gayatri HUSAIN and Quynh FOSTER, Gynecology rubén HUSAIN M.D. [facility] 2020-02-28 2020-02-28 Dusty FOSTER [facility] [id number] [place] 08:30:00 08:30:00 t; Gayatri HUSAIN ans ASHA, M.D. 2020-02-23 2020-02-23 [facility] [id number] [place] 11:00:00 11:00:00 t; Gayatri HUSAIN ans ASHA, M.D. 2020-02-16 2020-02-[address] [facility] Obstetrics [id number] [id number] [place] 14:15:00 14:15:00 t; Yue ROCHA i, M.D. Gynecology [facility] Dinah ROCHA M.D. Clinic 2020-02-15 2020-02-15 Emergency E AMELIE, MHSE MHSE 7510 MH 20:06:00 21:19:[address] [facility] 2020-02-14 2020-02-[address] [facility] Obstetrics [id number] [place] 09:00:00 09:00:00 t; SAMIR MATAMOROS and Phy sici BETHANY, M.D. Gynecology [facility] 2020-01-31 2020-01-[address] [facility] Obstetrics [id number] [place] 08:30:00 08:30:00 t; Yue WATKINS i, D.O. Gynecology [facility] Dinah WATKINS D.O. Clinic 2019-12-20 2019-12-20 Appointmen MARIBEL GOSS Orthopedics [id number] [place] 09:30:00 09:30:00 t; JOSE ROBERTO [facility] Quynh GOSS M.D. [facility] Jewel Lazo M.D. [facility] 2019-12-20 2019-12-20 Outpatient Raju_P MMG MMG [id number] [place] 04:51:00 04:51:00 0415 [facility] 2019-12-18 2019-12-18 Emergency E TABBY, MHSE MHSE [id number] MH 20:54:00 21:40:[facility] 2019-10-11 2019-10-12 [facility] [id number] Univers 21:52:36 00:17:00 DONTA calixto [facility] 2019-10-11 2019-10-12 [facility] [id number] Univers 21:52:36 00:17:00 Donta Guerrero [id number] i [facility] 4.2.7.2.686 [facility] [id number] [address] 2019-10-11 2019-10-12 Emergency [facility] [id number] 21:52:36 00:17:00 Donta Guerrero [id number] [place] 4.2.7.2.686 [place] [id number] [facility] 2019-10-11 2019-10-11 Orders Doctor SUDHA [id number] Univers 00:00:00 00:00:00 Only Unassigned, AELM 350.1.13.10 [place] [facility] 4.2.7.2.686 Zay as [phone] [facility] 009 [place] 2019-10-11 2019-10-11 Orders Doctor SUDHA [id number] [id number] 00:00:00 00:00:00 Only Unassigned, ALEM 350.1.13.10 [place] [id number] 2019-06-28 2019-06-28 Appointmen [facility] Obstetrics [id number] [place] 16:00:00 16:00:00 t; Jackie CAVANAUGH. and Ph ysici JENKINS, Gynecology Dinah Medina M.D. [facility] 2019-05-12 2019-05-12 Nurse Visit, Carriulises Nurse [facility] 1.2 .840.114 [id number] [facility] 10:44:42 12:05:57 Visit Perri Pérez MANAGER CHILD [id number] ity of [facility] 4.2.7.2.686 Zay as MATERNAL [phone] Med ical & CHILD [address] [place] [address] 2019-05-12 2019-05-12 Nurse Visit, [facility] 1.2.840.114 [id number] 10:44:42 12:05:57 Visit Carrigracie MANAGER CHILD [id number] Nurse [facility] 4.2.7.2.686 MATERNAL [phone] & CHILD [address] [place] [address] 2019-05-10 2019-05-10 Telephone Elisa [facility] 1.2.840.114 [id number] Univers 00:00:00 00:00:00 Perri Olivier MANAGER CHILD 350.1.13.10 it y of REGIONAL 4.2.7.2.686 Zay as MATERNAL [phone] Med ical & CHILD [address] [facility] 2019-05-10 2019-05-10 [facility]phone [facility] 1.2.840.114 [id number] 00:00:00 00:00:00 Perri Charline MANAGER CHILD 350.1.13.10 REGIONAL 4.2.7.2.686 MATERNAL [phone] & CHILD 107 [facility] 2019-04-03 2019-04-03 Patient Bogdan, CARMENIT 1.2.840.114 [id number] Univers 00:00:00 00:00:00 Secure Msg Ivet Y HEALTH 350.1.13.10 ity of [facility] 4.2.7.2.686 [place] [phone] [address] 2019-04-03 2019-04-03 Patient ROBIN Mcfadden 1.2.840.114 [id number] 00:00:00 00:00:00 Secure Msg Ivet Y HEALTH 350.1.13.10 CLINICS 4.2.7.2.686 [phone] [facility] 2019-03-07 2019-03-07 Patient Doctor SUDHA 1.2.840.114 [id number] Univers 00:00:00 00:00:00 Secure Msg Unassigned, ALEM 350.1.13.10 ity of [facility] 4.2.7.2.686 Zay as [phone] [address] 2019-03-07 2019-03-07 Patient Doctor SUDHA 1.2.840.114 [id number] 00:00:00 00:00:00 Secure Msg Unassigned, ALEM 350.1.13.10 [facility] 4.2.7.2.686 [id number] [facility] 2019-02-27 2019-02-27 Patient Doctor SUDHA 1.2.840.114 [id number] Univers 00:00:00 00:00:00 Secure Msg Unassigned, ALEM 350.1.13.10 [facility]y of [facility] 4.2.7.2.686 Zay as [phone] [address] 2019-02-27 2019-02-27 Patient Doctor SUDHA [place].2.840.114 [id number] 58 00:00:00 00:00:00 Secure Msg Unassigned, ALEM 350.1.13.10 [facility] 4.2.7.2.686 [id number] 044 2018-10-13 2018-10-13 Appointpeng [facility] [id number] [place] 14:30:00 14:30:00 t; Jennifer FINK i, M.D. ans JORDAN, M.D. 2018-09-07 2018-09-21 Outpatient [facility] [id number] 15:00:00 10:19:03 2018-09-07 2018-09-[address] [facility] Barrel Brander [id number] [place] 15:00:00 15:00:00 t; BONITA KRISHNA, Gayatri Alvarado M.D. Results Test Description Test Time Test Comments Results Result Comments Source UR HCG QUAL 2021-10-02 18:52:00 Test Item Value Reference Range Interpretation Comme [facility] HCG QUAL (test code = HCGQLU) NEGATIVE NEGATIVE SURGICAL [id number] 08:42:00 Test Item Value Reference Range Interpretation Comments SURGICAL SPECIMENS (test code = SURG) --------RUN DATE: 12/31/20 [facility] - LAB PAGE 1 RUN TIME: 841 Specimen Inquiry RUN USER: INTERFACE --------PATIENT: LONA JEAN BAPTISTE LOC: [facility] Haider #: [id number] AGE/SX: 30/F ROOM: [facility] RE12/26/20REG DR: Olegario Srivastava MD : [birth year] BED: 02 DIS: 12/26/20 STATUS: DIS Keira TLOC: -------- SPEC #: [id number] RECD: 12/26/20 STATUS: MIKI REQ #: [id number] LAURYN: 12/26/[address]: Olegario Srivastava MD [...] and its performance characteristics determined by the [facility]. It has not been cleared or approved by the US Food and Drug Administration. The FDA has determined that such clearance or approval is not necessary. The test is used for clinical purposes. It should not be regarded as investigational or for research. [facility] is certified under CLIA-88 (Clinical Laboratory Improvement [...] CONTINUED ON NEXT PAGE --------RUN DATE: 12/31/20 [facility] - LAB PAGE 2 RUN TIME: 841 Specimen Inquiry RUN USER: INTERFACE --------SPEC #: [id number] PATIENT: LONA JEAN BAPTISTE #[id number] (Continued) FINAL DIAGNOSIS (Continued) C. STOMACH, FUNDUS, BIOPSY: - OXYNTIC MUCOSA WITH REACTIVE GASTROPATHY - NEGATIVE FOR HELICOBACTER PYLORI BY IMMUNOHISTOCHEMISTRY - NO INTESTINAL METAPLASIA, DYSPLASIA, OR MALIGNANCY IS IDENTIFIED CPT: 94399 x3, 10572 x3 GROSS DESCRIPTION Received are three containers [...] -------- END OF REPORT COVID Asymptomatic IH [id number] 10:52:00 Test Item Value Reference Interpretation Comments [...] i ts performancechar acteristics were determined by [facility]. Thi s test has notbeen FDA ashley [...] setting? Unknown? UnknownAge at collection: YBASIC METABOLIC [id number] 21:38:00 Test Item Value Reference Range Interpretation [...] CA) Reference Range Oct 2020 LIVER FUNCTION [id number] 21:38:00 Test Item Value Reference Range Interpretation [...] code = ALKP) Reference Range Oct 2020 [id number] 21:38:00 Test Item Value Reference Range Interpretation Comments LIPASE (test code = 32 U/L 12-53 N Please n ote: New LIP) Reference Range Oct 2020 CBC W/AUTO [id number] 21:24:00 Test Item Value Reference Range Interpretation [...] BA#) 0.05 x10 3/uL 0.0-0.20 N PROTHROMBIN [id number] 21:22:00 Test Item Value Reference Range Interpretation [...] 2.5-3.5recurren t systemic emboli sm. BASIC METABOLIC [id number] 23:38:00 Test Item Value Reference Range Interpretation [...] CA) Reference Range Oct 2020 LIVER FUNCTION [id number] 23:38:00 Test Item Value Reference Range Interpretation [...] code = ALKP) Reference Range Oct 2020 [id number] 23:38:00 Test Item Value Reference Range Interpretation Comments LIPASE (test code = 37 U/L 12-53 N Please n ote: New LIP) Reference Range Oct 2020 UA RFLX MICR CULT IF [id number] 23:10:00 Test Item Value Reference Range Interpretation [...] BLOOD DIPSTICK (test NEGATIVE NEGATIVE code = JAUKB) UA PH DIPSTICK (test code 5.5 5.0-9.0 [...] Indication for culture: RiskForSepsis-no oth srcUR HCG [id number] 23:10:00 Test Item Value Reference Range Interpretation [...] Indication for culture: RiskForSepsis-no oth srcUR HCG [id number] 23:08:00 Test Item Value Reference Range Interpretation Comments UR HCG QUAL (test code = HCGQLU) NEGATIVE Indication for culture: RiskForSepsis-no oth srcCBC W/AUTO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
[2022-07-28] MEDS ORDERED: HYDROCODONE/APAP 10/325 TAB ONE (10:18)
[2022-07-28 11:08] LABS: SARS-COV-2 RT PCR NEGATIVE (NEGATIVE)
--- NOTE | 2022-07-28 11:38 | EDPHYS ---
Physician Documentation [facility] Name: Lona Winter Age: 32 yrs Sex: Female : 1990 Arrival Date: 07/28/2022 Time: 09:52 Bed 10 Private MD: ED Physician Rik Osei HPI: 07/28 11:35 This 32 yrs old Female presents to ER via Ambulatory with complaints of Flu Symptoms, kb Breast Lump. 11:35 The patient or guardian reports cough, that is intermittent, described as mild, flu kb symptoms, low-grade fever, myalgias. Onset: The symptoms/episode began/occurred 2 day(s) ago. Severity of symptoms: At their worst the symptoms were mild, moderate, in the emergency department the symptoms are unchanged. Modifying factors: The symptoms are alleviated by nothing, the symptoms are aggravated by nothing. Associated signs and symptoms: Pertinent positives: diarrhea, fever, rhinorrhea. The patient has experienced similar episodes in the past. The patient has not recently seen a physician. 11:37 Pt reports bodyaches, cough, congestion, fever and diarrhea for 2 days. Also reports kb chronic pain due to breast cancer. States she is having surgery on 08/07 and has a prescription for pain medication from her pain management dr, but the pharmacy had to order it. States she tried to get in touch with oncologist and pain management this morning, but was unable due to the holiday. Historical: - Allergies: 10:11 Adhesives; iw 10:11 Amoxicillin; iw 10:11 Demerol; iw 10:11 Doxycycline; iw 10:11 Lamictal; iw 10:11 Latex, Natural Rubber; iw 10:11 Nucynta; iw 10:11 PENICILLINS; iw 10:11 Reglan; iw 10:11 Toradol; iw 10:11 tramadol; iw 10:11 Trazodone; iw - Home Meds: 10:11 diazepam 10 mg Oral tab 1 tab 2 times per day [Active]; Flexeril 10 mg Oral tab 1 tab 3 iw times per day [Active]; keppra 500 mg BID [Active]; meloxicam 15 mg Oral tab 1 tab once daily [Active]; Movantik Oral [Active]; [place] 10-325 mg Oral tab every 4-6 hours [Active]; oxycodone 10 mg Oral tab 1 tab every 6 hours [Active]; pregabalin 150 mg Oral cap 1 cap 2 times per day [Active]; - PMHx: 10: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 kb 11:34 Constitutional: Positive for body aches, chills, fatigue, fever, malaise. 11:34 ENT: Positive for rhinorrhea, sinus congestion. 11:34 Respiratory: Positive for cough. 11:34 All other systems are negative. 11:34 Abdomen/GI: Positive for diarrhea, Negative for abdominal pain, nausea and vomiting. kb Exam: 11:34 Constitutional: This is a well developed, well nourished patient who is awake, alert, kb and in no acute distress. Head/Face: Normocephalic, atraumatic. ENT: Moist Mucous membranes Cardiovascular: Regular rate and rhythm with a normal S1 and S2. No gallops, murmurs, or rubs. No pulse deficits. Respiratory: Respirations even and unlabored. No increased work of breathing. Talking in full sentences Abdomen/GI: Soft, non-tender. No distention Skin: Warm, dry with normal turgor. Normal color. MS/ Extremity: Pulses equal, no cyanosis. Neurovascular intact. Full, normal range of motion. Neuro: Awake and alert, GCS 15, oriented to person, place, time, and situation. Moves all extremities. Normal gait. Vital Signs: 10:10 BP 157 / 100; Pulse 94; Resp 16; Temp 98.4; Pulse Ox 100% on R/A; Weight 64.86 kg; iw Height 5 ft. 3 in. (160.02 cm); 10:10 Body Mass Index 25.33 (64.86 kg, 160.02 cm) iw MDM: 09:53 Patient medically screened. kb 11:32 Data reviewed: vital signs, nurses notes. Data interpreted: Pulse oximetry: on room air kb is 100 %. Interpretation: normal. Counseling: I had a detailed discussion with the patient and/or guardian regarding: the historical points, exam findings, and any diagnostic results supporting the discharge/admit diagnosis, lab results, the need for outpatient follow up, a family practitioner, to return to the emergency department if symptoms worsen or persist or if there are any questions or concerns that arise at home. 07/28 10:05 Order name: COVID-19/FLU A+B; Complete Time: 11:09 kb Administered Medications: 10:27 Drug: Tatamy (HYDROcodone-acetaminophen) 10 mg-325 mg 1 tabs Route: PO; iw 12:27 Drug: predniSONE 40 mg Route: PO; iw Disposition: 16:55 Co-signature as Attending Physician, Rik Osei MD I agree with the assessment and rt plan of care. Disposition Summary: 07/28/22 11:38 Discharge Ordered Location: Home kb Condition: Stable kb Diagnosis - Acute upper respiratory infection, unspecified kb Followup: kb - With: Emergency Department - When: As needed - Reason: Worsening of condition Followup: kb - With: Private Physician - When: 2 - 3 days - Reason: Recheck today's complaints, Continuance of care, Re-evaluation by your physician Discharge Instructions: - Discharge Summary Sheet kb - Upper Respiratory Infection, Adult, [id number] kb - Viral Respiratory Infection, [id number] kb Forms: - Medication Reconciliation Form kb - Thank You Letter kb - Antibiotic Education kb - Prescription Opioid Use kb Prescriptions: - albuterol sulfate 90 mcg/actuation Inhalation HFA aerosol inhaler - inhale 2 puff by INHALATION route every 4-6 hours As needed; 1 Inhaler; kb Refills: 0, Product Selection Permitted - Prednisone 20 mg Oral Tablet - take 1 tablet by ORAL route once daily for 5 days; 5 tablet; Refills: 0, kb Product Selection Permitted - Tessalon Perles 100 mg Oral Capsule - take 1 capsule by ORAL route every 8 hours As needed; 15 capsule; Refills: 0, kb Product Selection Permitted Signatures: Dispatcher [employer] Beth Ansari, JUJU-C Geni Ramirez, HO RN Rik Mott MD MD rt
--- NOTE | 2022-07-28 11:38 | ER ---
Nurse's Notes [facility] Name: Lona Marie Age: 32 yrs Sex: Female : 1990 Arrival Date: 07/28/2022 Time: 09:52 Bed 10 Private MD: Diagnosis: Acute upper respiratory infection, unspecified Presentation: 07/28 10:10 Chief complaint: Patient states: diarrhea, fever, cough, congestion X 2 days +body iw aches. Coronavirus screen: Client presents with at least one sign or symptom that may indicate coronavirus-19. Ebola Screen: Patient negative for fever greater than or equal to 101.5 degrees Fahrenheit, and additional compatible Ebola Virus Disease symptoms Patient denies exposure to infectious person. Patient denies travel to an Ebola-affected area in the 21 days before illness onset. No symptoms or risks identified at this time. Initial Sepsis Screen: Does the patient meet any 2 criteria? No. Patient's initial sepsis screen is negative. Does the patient have a suspected source of infection? No. Patient's initial sepsis screen is negative. Risk Assessment: Do you want to hurt yourself or someone else? Patient reports no desire to harm self or others. Onset of symptoms was July 26, 2022. 10:10 Method Of Arrival: Ambulatory iw 10:10 Acuity: SMITH 4 iw Historical: - Allergies: 10:11 Adhesives; iw 10:11 Amoxicillin; iw 10:11 Demerol; iw 10:11 Doxycycline; iw 10:11 Lamictal; iw 10:11 Latex, Natural Rubber; iw 10:11 Nucynta; iw 10:11 PENICILLINS; iw 10:11 Reglan; iw 10:11 Toradol; iw 10:11 tramadol; iw 10:11 Trazodone; iw - Home Meds: 10:11 diazepam 10 mg Oral tab 1 tab 2 times per day [Active]; Flexeril 10 mg Oral tab 1 tab 3 iw times per day [Active]; keppra 500 mg BID [Active]; meloxicam 15 mg Oral tab 1 tab once daily [Active]; Movantik Oral [Active]; [place] 10-325 mg Oral tab every 4-6 hours [Active]; oxycodone 10 mg Oral tab 1 tab every 6 hours [Active]; pregabalin 150 mg Oral cap 1 cap 2 times per day [Active]; - PMHx: 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 3 in. (160.02 cm); 10:10 Body Mass Index 25.33 (64.86 kg, 160.02 cm) iw ED Course: 09:52 Patient arrived in ED. as 09:53 [facility] Maciel [facility]-C [facility]. kb 09:53 Rik Osei MD is Attending Physician. kb 10:07 Geni Scott, RN is Primary Nurse. iw 10:11 Triage completed. iw 10:12 Arm band placed on. iw 10:27 COVID-19/FLU A+B Sent. iw Administered Medications: 10:27 Drug: [place] (HYDROcodone-acetaminophen) 10 mg-325 mg 1 tabs Route: PO; iw 12:27 Drug: predniSONE 40 mg Route: PO; iw Outcome: 11:38 Discharge ordered by . kb 12:27 Patient left the ED. iw Signatures: Beth Maciel FNP-C FNP-Pat Maher as Geni Scott, RN RN iw
[2022-07-28] MEDS ORDERED: predniSONE 20 MG TAB ONE (12:26)
[2022-07-28 12:31] VITALS: BP 157/100; TEMP 98.4; O2SAT 100
== END 2022-07-28 12:27 | disposition home or self-care (01) ==
LOC: ER 09:49
DX: J06.9 Acute upper respiratory infection, unspecified (principal); Z20.822 Contact with and (suspected) exposure to COVID-19; Z88.0 Allergy status to penicillin; Z88.1 Allergy status to other antibiotic agents; Z88.5 Allergy status to narcotic agent; Z88.8 Allergy status to other drugs, medicaments and biological substances; Z91.040 Latex allergy status; Z91.048 Other nonmedicinal substance allergy status
CPT/HCPCS: 0240U; 99283; J7512

== ENCOUNTER 2022-08-01 18:24 | Emergency (ER) | payer OTHER ==
--- NOTE | 2022-08-01 19:39 | ER ---
Nurse's Notes [facility] Name: Lona Marie Age: 32 yrs Sex: Female : 1990 Arrival Date: 08/01/2022 Time: 18:31 Bed DIS4 Private MD: Diagnosis: breast pain Presentation: 08/01 18:54 Chief complaint: Patient states: Pt reports she is having a right breast mass excision kb3 on Wednesday at [facility]. Reports increased pain and nipple discharge x2 days despite the use of Tylenol, ibuprofen and hydrocodone administration. Coronavirus screen: Vaccine status: Patient reports receiving the 2nd dose of the covid vaccine. Client denies travel out of the [place] in the last 14 days. Ebola Screen: Patient negative for fever greater than or equal to 101.5 degrees Fahrenheit, and additional compatible Ebola Virus Disease symptoms Patient denies exposure to infectious person. Patient denies travel to an Ebola-affected area in the 21 days before illness onset. Initial Sepsis Screen: Does the patient meet any 2 criteria? No. Patient's initial sepsis screen is negative. Does the patient have a suspected source of infection? No. Patient's initial sepsis screen is negative. Risk Assessment: Do you want to hurt yourself or someone else? Patient reports no desire to harm self or others. Onset of symptoms was July 30, 2022. 18:54 Method Of Arrival: Ambulatory kb3 18:54 Acuity: SMITH 3 kb3 Triage Assessment: 18:56 General: Appears distressed, Behavior is calm, cooperative. Pain: Complains of pain in kb3 right breast Pain does not radiate. Pain currently is 10 out of 10 on a pain scale. Quality of pain is described as burning, sharp, stabbing, Pain began 2-3 days ago. 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 kb3 Historical: - Allergies: 18:56 Adhesives; kb3 18:56 Amoxicillin; kb3 18:56 Demerol; kb3 18:56 Doxycycline; kb3 18:56 Lamictal; kb3 18:56 Latex, Natural Rubber; kb3 18:56 Nucynta; kb3 18:56 PENICILLINS; kb3 18:56 Reglan; kb3 18:56 Toradol; kb3 18:56 tramadol; kb3 18:56 Trazodone; kb3 - Home Meds: 18:56 diazepam 10 mg Oral tab 1 tab 2 times per day [Active]; Flexeril 10 mg Oral tab 1 tab 3 kb3 times per day [Active]; keppra 500 mg BID [Active]; meloxicam 15 mg Oral tab 1 tab once daily [Active]; Movantik Oral [Active]; [place] 10-325 mg Oral tab every 4-6 hours [Active]; pregabalin 150 mg Oral cap 1 cap 2 times per day [Active]; - PMHx: 18: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 - Social history:: Smoking status: Patient reports the use of cigarette tobacco products, denies chronic smoking, but will smoke occasionally. Screenin:57 Abuse screen: Denies threats or abuse. Denies injuries from another. Nutritional kd3 screening: No deficits noted. Tuberculosis screening: No symptoms or risk factors identified. Fall Risk None identified. Assessment: 19:56 General: Appears uncomfortable, Behavior is calm, cooperative. Neuro: Level of kd3 Consciousness is awake, alert, obeys commands, Oriented to person, place, time, situation. Respiratory: Airway is patent Trachea midline Respiratory effort is even, unlabored, Respiratory pattern is regular, symmetrical. Vital Signs: 18:54 BP 138 / 103; Pulse 104; Resp 20; Temp 98.8; Pulse Ox 100% ; Weight 64.86 kg; Height 5 kb3 ft. 3 in. (160.02 cm); Pain 10/10; 18:54 Body Mass Index 25.33 (64.86 kg, 160.02 cm) kb3 ED Course: 18:31 Patient arrived in ED. jj6 18:56 Triage completed. kb3 18:58 Arm band placed on right wrist. kb3 19:18 Yuki Islas FNP-C is PHCP. snw 19:18 Rik Osei MD is Attending Physician. snw 19:56 Kellee Platt RN is Primary Nurse. kd3 19:57 Patient has correct armband on for positive identification. kd3 19:57 No provider procedures requiring assistance completed. kd3 20:03 Patient did not have IV access during this emergency room visit. jb4 Administered Medications: 20:01 Drug: Pepcid (famotidine) 20 mg Route: PO; jb4 20:02 Follow up: Response: Medication administered at discharge. jb4 20:02 Drug: Dilaudid (HYDROmorphone) 1 mg Route: IM; Site: right deltoid; jb4 20:02 Follow up: Response: Medication administered at discharge. jb4 20:02 Drug: ZyrTEC - Cetirizine 10 mg Route: PO; jb4 20:02 Follow up: Response: Medication administered at discharge. jb4 Medication: 19:57 VIS not applicable for this client. kd3 Outcome: 19:38 Discharge ordered by . snw 20:02 Discharged to home ambulatory, with family. jb4 20:02 Condition: stable 20:02 Discharge instructions given to patient, Instructed on discharge instructions, follow up and referral plans. Demonstrated understanding of instructions, follow-up care. 20:03 Patient left the ED. jb4 Signatures: Yuki Islas, ADULT CAREGIVER-C ADULT CAREGIVER-Csnw Tico Larry RN RN jb4 Yuly Monique jj6 Kellee Platt RN RN kd3 Sarita Coyne, RN RN kb3 Corrections: (The following items were deleted from the chart) 18:58 18:56 Home Meds: oxycodone 10 mg Oral tab 1 tab every 6 hours; kb3 kb3
--- NOTE | 2022-08-01 19:39 | EDPHYS ---
Physician Documentation [facility] Name: Lona Marie Age: 32 yrs Sex: Female : 1990 Arrival Date: 08/01/2022 Time: 18:31 Bed DIS4 Private MD: ED Physician Rik Osei HPI: 08/01 19:39 This 32 yrs old Female presents to ER via Ambulatory with complaints of Breast Problem. snw 19:39 Onset: The symptoms/episode began/occurred acutely, and became worse today. Associated snw signs and symptoms: Pertinent positives: pt unable to get comfortable, to have breast mass surgically resected on Wednesday. . Modifying factors: The patient symptoms are alleviated by nothing. The patient has experienced a previous episode, last ED visit. The patient has been recently seen by a physician: with similar presenting complaints, pt has pain management, taking medications without relief. . 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 kb3 Historical: - Allergies: 18:56 Adhesives; kb3 18:56 Amoxicillin; kb3 18:56 Demerol; kb3 18:56 Doxycycline; kb3 18:56 Lamictal; kb3 18:56 Latex, Natural Rubber; kb3 18:56 Nucynta; kb3 18:56 PENICILLINS; kb3 18:56 Reglan; kb3 18:56 Toradol; kb3 18:56 tramadol; kb3 18:56 Trazodone; kb3 - Home Meds: 18:56 diazepam 10 mg Oral tab 1 tab 2 times per day [Active]; Flexeril 10 mg Oral tab 1 tab 3 kb3 times per day [Active]; keppra 500 mg BID [Active]; meloxicam 15 mg Oral tab 1 tab once daily [Active]; Movantik Oral [Active]; [place] 10-325 mg Oral tab every 4-6 hours [Active]; pregabalin 150 mg Oral cap 1 cap 2 times per day [Active]; - PMHx: 18: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 - Social history:: Smoking status: Patient reports the use of cigarette tobacco products, denies chronic smoking, but will smoke occasionally. ROS: 19:27 Constitutional: Negative for fever, chills, and weight loss, Eyes: Negative for injury, snw pain, redness, and discharge, ENT: Negative for injury, pain, and discharge, Neck: Negative for injury, pain, and swelling, Cardiovascular: Negative for chest pain, palpitations, and edema, Respiratory: Negative for shortness of breath, cough, wheezing, and pleuritic chest pain, right breast with pressure, discharge, and such discomfort that none of her medications are allowing her to rest Abdomen/GI: Negative for abdominal pain, nausea, vomiting, diarrhea, and constipation, Back: Negative for injury and pain, : Negative for injury, bleeding, discharge, and swelling, MS/Extremity: Negative for injury and deformity, Skin: Negative for injury, rash, and discoloration, Neuro: Negative for headache, weakness, numbness, tingling, and seizure. Exam: 19:30 Constitutional: This is a well developed, well nourished patient who is awake, alert, snw and in no acute distress. Head/Face: Normocephalic, atraumatic. Eyes: Pupils equal round and reactive to light, extra-ocular motions intact. Lids and lashes normal. Conjunctiva and sclera are non-icteric and not injected. Cornea within normal limits. Periorbital areas with no swelling, redness, or edema. ENT: Nares patent. No nasal discharge, no septal abnormalities noted. Tympanic membranes are normal and external auditory canals are clear. Oropharynx with no redness, swelling, or masses, exudates, or evidence of obstruction, uvula midline. Mucous membranes moist. Neck: Trachea midline, no thyromegaly or masses palpated, and no cervical lymphadenopathy. Supple, full range of motion without nuchal rigidity, or vertebral point tenderness. No Meningismus. Chest/axilla: Normal chest wall appearance and motion. Nontender with no deformity. No lesions are appreciated. Cardiovascular: Regular rate and rhythm with a normal S1 and S2. No gallops, murmurs, or rubs. Normal PMI, no JVD. No pulse deficits. Abdomen/GI: Soft, non-tender, with normal bowel sounds. No distension or tympany. No guarding or rebound. No evidence of tenderness throughout. Back: No spinal tenderness. No costovertebral tenderness. Full range of motion. Skin: Warm, dry with normal turgor. Normal color with no rashes, no lesions, and no evidence of cellulitis. MS/ Extremity: Pulses equal, no cyanosis. Neurovascular intact. Full, normal range of motion. Neuro: Awake and alert, GCS 15, oriented to person, place, time, and situation. Cranial nerves II-XII grossly intact. Motor strength 5/5 in all extremities. Sensory grossly intact. Cerebellar exam normal. Normal gait. Psych: Awake, alert, with orientation to person, place and time. Behavior, mood, and affect are within normal limits. 19:30 Respiratory: the patient does not display signs of respiratory distress, Respirations: normal, right breast tenderness. Vital Signs: 18:54 BP 138 / 103; Pulse 104; Resp 20; Temp 98.8; Pulse Ox 100% ; Weight 64.86 kg; Height 5 kb3 ft. 3 in. (160.02 cm); Pain 10/10; 18:54 Body Mass Index 25.33 (64.86 kg, 160.02 cm) kb3 MDM: 19:26 Data reviewed: vital signs, nurses notes. Data interpreted: Pulse oximetry: on room air snw is 100 %. Interpretation: normal. Counseling: I had a detailed discussion with the patient and/or guardian regarding: the historical points, exam findings, and any diagnostic results supporting the discharge/admit diagnosis, the presence of at least one elevated blood pressure reading (>120/80) during this emergency department visit, the need for outpatient follow up, for definitive care. Special discussion: I have referred the patient to see his PCP for further evaluation of high blood pressure. Based on the history and exam findings, there is no indication for further emergent testing or inpatient evaluation. 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 Breast surgeon. 19:33 ED course: Pt tearful, states she has not been able to get comfortable. She is taking snw her medications as directed, using ice packs, sports bras. She states she called her oncologist, no response. Pt is scheduled for surgery on Wednesday. Encouraged to call Wednesday for help. Will give dilaudid one time. Pt informed this is not to be repeated. She must f/u with her oncologist/surgeon. Pt voices understanding.. 19:38 Patient medically screened. snw Administered Medications: 20:01 Drug: Pepcid (famotidine) 20 mg Route: PO; jb4 20:02 Follow up: Response: Medication administered at discharge. jb4 20:02 Drug: Dilaudid (HYDROmorphone) 1 mg Route: IM; Site: right deltoid; jb4 20:02 Follow up: Response: Medication administered at discharge. jb4 20:02 Drug: ZyrTEC - Cetirizine 10 mg Route: PO; jb4 20:02 Follow up: Response: Medication administered at discharge. jb4 Disposition: 20:22 Co-signature as Attending Physician, Rik Osei MD I agree with the assessment and rt plan of care. Disposition Summary: 08/01/22 19:38 Discharge Ordered Location: Home snw Condition: Stable snw Diagnosis - breast pain snw Followup: snw - With: Private Physician - When: 48 Hours - Reason: Recheck today's complaints, Continuance of care, Re-evaluation by your physician Discharge Instructions: - Discharge Summary Sheet snw - Acute Pain, Adult snw Forms: - Medication Reconciliation Form snw - Thank You Letter snw - Antibiotic Education snw - Prescription Opioid Use snw Signatures: Yuki Islas FNP-C BOMBSIGHT SPECIALIST-Csnw Tico Larry, RN RN jb4 Sarita Coyne, RN RN kb3 Rik Osei MD MD rt Corrections: (The following items were deleted from the chart) 18:58 18:56 Home Meds: oxycodone 10 mg Oral tab 1 tab every 6 hours; kb3 kb3
[2022-08-01] MEDS ORDERED: HYDROMORPHONE HCL 1 MG/ML INJ ONE (19:52)
[2022-08-01] MEDS ORDERED: CETIRIZINE HCL 5 MG TABLET ONE (19:52)
[2022-08-01] MEDS ORDERED: FAMOTIDINE 20 MG TAB ONE (19:52)
[2022-08-01 20:08] VITALS: BP 138/103; TEMP 98.8; O2SAT 100
== END 2022-08-01 20:03 | disposition home or self-care (01) ==
LOC: ER 18:24
DX: N63.10 Unspecified lump in the right breast, unspecified quadrant (principal)
CPT/HCPCS: 96372; 99283; J1170

== ENCOUNTER 2023-01-01 06:21 | Emergency (ER) | payer BC, OTHER ==
--- OUTSIDE RECORDS SUMMARY | 2023-01-01 06:38 | XMS REPORT | Continuity of Care Document ---
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 [facility] trazodon DA Active U 2017- [facility] e 2-11 Clear 00:00: [place] 00 [facility] meperidi DA Active U 2017- [facility] ne 2-11 Clear 00:00: [place] 00 [facility] metoclop DA Active SV 2017- [facility] ramide 2-11 Clear 00:00: [place] 00 [facility] ketorola DA Active U 2017- [facility] c 2-11 Clear 00:00: [place] 00 [facility] latex DA Active MO 2017- [facility] 2-11 Clear 00:00: [place] 00 [facility] ketorola DA Active U RASH 2017- [facility] c 2-11 [facility] [place] latex DA Active MO RASH 2017- [facility] 2-11 [facility] 00:[facility]: [facility] [place] Penicill DA Active U RASH 2017- [facility] ins 2-11 Woman[facility] 00:00: [facility] [place] doxycycl DA Active U RASH 2017- [facility] ine 2-11 [facility] 00:00: [facility] [place] amoxicil DA Active U RASH 2018- [facility] jami 2-11 [facility] 00:00: [facility] [place] lamotrig DA Active [place] RASH 2018- [facility] ine 2-11 Woman's 00:00: [...] 00 [facility] [place] TAPE DA Active WI RASH 2017- [facility] 1-04 Clear 00:00: [place] 00 [facility] Penicill DA Active U 2017- [facility] ins 1-04 [facility] 00:00: [facility] [place] doxycycl DA Active U 2017-09 [facility] ine 1-04 Woman[facility] 00:00: [facility] [place] amoxicil DA Active U 2017-09 [facility] jami 1-04 [facility] 00:00: [facility] [place] lamotrig DA Active [place] 2017-09 [facility] ine -04 Woman's 00:00: [facility] [place] tramadol DA Active U 2017- [facility] 1-04 [facility] 00:00: [facility] [place] trazodon DA Active U 2017-09 [facility] e - [facility] 00:[facility]: [facility] [place] meperidi DA Active U 2017-09 [facility] ne 09-09 [facility] 00:00: [facility] [place] [...] [facility] [place] Meperidi Propensi Active Other (See [place] thodi ne ty to Comments) 05-08 st adverse 00:00: Hospita reaction 00 l s to drug Penicill DA Active U 2017- [facility] ins - Woman's 00:00: [facility] [place] doxycycl DA Active U 2017- [facility] ine - Woman's 00:00: [facility] [place] amoxicil DA Active U 2017- [facility] jami - Woman's 00:00: [facility] [place] lamotrig DA Active [place] 2017- [facility] ine 05-08 Woman's 00:00: [facility] [place] tramadol DA Active U 2017- [facility] 9- Woman's 00:00: [facility] [place] trazodon DA Active U 2018-0 [facility] e 9-02 Woman's 00:00: [facility] [place] meperidi DA Active U 2018-0 [facility] ne 9-02 Woman's 00:00: [facility] [place] ketorola DA Active U 2018-0 [facility] c 9-02 Woman's 00:00: [facility] [place] latex DA Active MO 2018-0 HCA 9-02 Woman's 00:00: [facility] [place] Metoclop Drug Active Unknown - 0 Unive rs ramide Allergy See comments 6-15 ity of 00:00: [place] [facility] Metoclop Propensi Active Shortness of 0 Univers ramide ty to Breath 6-15 ity of Hcl adverse 00:00: [place] reaction [facility] s [facility] Adhesive Propensi Active Rash 0 Transpore Uni vers ty to 6-15 tape ity of adverse 00:00: [place] reaction [facility] ADHESIVE Drug Active Med Rash 0 Univers Class 6-15 ity of 00:00: [place] [facility] METOCLOP DRUG Active SOB 0 Univers RAMIDE INGREDI 6-15 ity of HCL 00:00: [place] [facility] Adhesive Propensi Active Rash 0 Transpore Uni vers ty to 6-15 tapeTrans ity of adverse 00:00: pore [place] reaction 00 tapeTrans Medic al s pore Branch tapeTrans pore tape METOCLOP DRUG Active High Other-Cmnt 0 Univ ers RAMIDE INGREDI 6-15 ity of 00:00: [place] [facility] Adhesive Propensi Active Rash 0 Transpore Met hodi ty to 6-[address] adverse 00:00: Hospita reaction 00 l s to drug Metoclop Propensi Active Other (See 20180 Me thodi ramide ty to Comments) 6-15 [...] s to drug Doxycycl Propensi Active Swelling 0 Univ ers ine Hcl ty to 719 ity of adverse 00:00: [place] reaction 00 Medical s Branch Latex Propensi Active Rash 0 Univers ty to 719 ity of adverse 00:00: [place] reaction 00 [facility] s [facility] Penicill Propensi Active Swelling 0 Univ ers ins ty to 7 ity of adverse 00:00: [place] reaction 00 Medical s Branch DOXYCYCL DRUG Active Swelling 0 Univer s INE HCL INGREDI 03-24 ity of 00:00: [place] 00 [facility] LATEX DRUG Active Rash Univers INGREDI 03-24 ity of 00:00: [place] 00 [facility] PENICILL Drug Active Swelling 0 Univer s INS Class 03-24 ity of 00:00: [place] 00 [facility] Penicill Propensi Active Swelling 0 Univ ers ins ty to 03-24 ity of adverse 00:00: [place] reaction 00 Medical s Branch doxycycl DA Active U [facility] ine 719 Woman's 00:00: [facility] [place] amoxicil DA Active U 0 [facility] jami 7-19 Woman's 00:00: [facility] 00 [facility] [place] lamotrig DA Active WI 0 [facility] ine 719 Woman's 00:00: [facility] 00 [facility] [place] tramadol DA Active U 0 [facility] 719 Woman's 00:00: [facility] 00 [facility] [place] latex DA Active MO 2015-0 HCA 7-19 Woman's 00:00: [facility] 00 [facility] [place] Amoxicil Propensi Active Rash 0 Univer s jami ty to 3-16 ity of adverse 00:00: [place] reaction 00 Medical s Branch Lamotrig Propensi Active Rash 0 Univer s ine ty to 3-16 ity of adverse 00:00: [place] reaction 00 Medical s Branch Ketorola Propensi Active Rash 0 Univer s c ty to 3-16 ity of [place] adverse 00:00: [place] mine reaction 00 Medical s Branch Tramadol Propensi Active Rash 0 Univer s ty to 3-16 ity of adverse 00:00: [place] reaction 00 Medical s Branch AMOXICIL DRUG Active Rash 0 Univers JAMI INGREDI 3-16 ity of 00:00: [place] 00 [facility] LAMOTRIG DRUG Active Rash Univers INE INGREDI 3-16 ity of 00:00: [place] 00 [facility] KETOROLA DRUG Active Rash Univers C INGREDI 16 ity of TROMETHA 00:00: [place] MINE 00 Medical Branch TRAMADOL DRUG Active Rash Univers INGREDI 16 ity of 00:00: [place] 00 [facility] Ketorola Propensi Active Other (See Me thodi c ty to Comments) 16 st adverse 00:00: Hospita reaction 00 l [...] Start Date Stop Date Quantity Comments Source Gender identity 2021-06-13 Identifies as Method ist 14:07:48 female gender [facility] (finding) Sexual orientation 2021-06-13 Heterosexual Meth odist 14:07:48 (finding) Hospital History of tobacco Cigarette Smoker University of use [facility] History [facility] o f Alcohol Frequency [facility] History [facility] University o f Alcohol Std Drinks [place] [facility] History SDOH University o f Alcohol Binge [facility] al Branch Exposure to 2022-12-15 2022-12-25 Not sure University of SARS-CoV-2 (event) 00:00:00 16:54:00 [facility] Tobacco Comment 2022-12-22 2022-12-22 1 pack a week Univer sity of 00:00:00 00:00:00 [facility] Alcohol intake 2022-01-20 2022-01-20 Current drinker of Me thodist 00:00:00 00:00:00 alcohol (finding) Hospita l History of Social 2022-01-20 2022-01-20 [facility] function 00:00:00 00:00:00 Hospital Tobacco use and 2021-06-13 2021-06-13 Smokeless tobacco [facility] exposure 00:00:00 00:00:00 non-user Hospital Alcohol Comment 2021-06-13 2021-06-13 occasional [facility] 00:00:00 00:00:00 Hospital Sex Assigned At [birth year] F Mormon 00:00:00 00:00:00 Hospital Smoking Status Start Date Stop Date Source Never smoked tobacco [facility] (finding) Occasional tobacco smoker 2022-12-22 00:00:[address] [facility] Smokes tobacco daily 2021-06-13 00:00:00 [facility] Medications Ordered Filled Start Stop Current Ordering Indication Dosage Frequency Signature Comments Components Source Medication Medication Date Date Medication? Clinician (SIG) Name Name maalox:diph 2022- No 15mL 15 mL, Uni vers enhydrAMINE 12-31 Oral ity of :lidocaine 06:45: 05:52 ([place] 2 % viscous 00 :00 Swallow), Med ical 1:1:1 ONCE, 1 Branch (FIRST-MOUT dose, On HWASH BLM) Ernestina oral 12/31/22 at suspension 0145, 15 mL Routine iopamidol 2022- No [id number] 70mL 70 mL, Univers (ISOVUE 12-30 Intravenou ity o f 370-500 mL) 17:30: 17:25 s, ONCE, 1 [place] injection 00 :00 dose, On Medica l 70 mL Wed Branch 12/30/22 at 1230, Routine nitroglycer No [id number] .8mg 0.8 mg, Univers in 12-30 Sublingual ity of (NITROSTAT) 17:15: 17:15 , ONCE, 1 [place] sublingual 00 :00 dose, On Medic al tablet 0.8 Wed Branch mg 12/30/22 at 1215, Routine metoprolol No [id number] 100mg 100 mg, Univers tartrate 12-30 Oral, ity of (LOPRESSOR) 16:15: 16:41 [place]CE, 1 [place] tablet 100 00 :00 dose, On Medic al mg [facility] 12/30/22 at 1141, Routine valACYclovi Yes [id number] 1g Take 1 Univers r 1 gram 4-21 tablet by ity of tablet 00:00: mouth in [address] morning [place] and 1 tablet at noon and 1 tablet in the evening. valACYclovi Yes [id number] 1g Take 1 Univers r 1 gram 4-21 tablet by ity of tablet 00:00: mouth in [address] and 1 tablet at noon and 1 tablet in the evening. valACYclovi Yes [id number] 1g Take 1 Univers r 1 gram 4-21 tablet by ity of tablet 00:00: mouth in [address] morning [place] and 1 tablet at noon and 1 tablet in the evening. valACYclovi Yes [id number] 1g Take 1 Univers r 1 gram 4-21 tablet by ity of tablet 00:00: mouth in [address] morning [place] and 1 tablet at noon and 1 tablet in the evening. valACYclovi Yes [id number] 1g Take 1 Univers r 1 gram 4-21 tablet by ity of tablet 00:00: mouth in [address] morning [place] and 1 tablet at noon and 1 tablet in the evening. valACYclovi Yes [id number] 1g Take 1 Univers r 1 gram 4-21 tablet by ity of tablet 00:00: mouth in [address] morning [place] and 1 tablet at noon and 1 tablet in the evening. valACYclovi 0 Yes [id number] 1g Take 1 Univers r 1 gram 4-21 tablet by ity of tablet 00:00: mouth in [place] 00 the [facility] and 1 tablet at noon and 1 tablet in the evening. valACYclovi Yes [id number] 1g Take 1 Univers r 1 gram 4-21 tablet by ity of tablet 00:00: mouth in [place] 00 the [facility] and 1 tablet at noon and 1 tablet in the evening. valACYclovi 2022- Yes [id number] 1g Take 1 Univers r 1 gram -21 - tablet by ity o f tablet 00:00: 04:59 mouth in [place] 00 :00 the [facility] and 1 tablet at noon and 1 tablet in the evening. Do all this for 7 days. valACYclovi 2022- No [id number] 1g Take 1 Univers r 1 gram -12-25 tablet by ity o f tablet 00:00: 00:00 mouth in [place] 00 :00 the [facility] and 1 tablet at noon and 1 tablet in the evening. Do all this for 7 days. levETIRAcet Yes TWICE Unive rs am 500 mg 4-18 DAILY. ity of tablet 09:12: [address] gabapentin Yes gabapentin U nivers 300 mg 4-18 300 mg ity of capsule 09:12: capsule [address] famotidine Yes famotidine U nivers 20 mg 4-18 20 mg ity of tablet 09:12: tablet [address] clonazePAM 0 Yes clonazepam U nivers 0.5 mg 4-18 0.5 mg ity of tablet 09:12: tablet [place] [address] TAKE 1 Medical TABLET BY Branch MOUTH EVERY DAY AT BEDTIME NEEDED FOR SEVERE ANXIETY/PA STACEY ATTACK buPROPion Yes 300mg Take 1 Unive rs XL 300 mg 4-18 tablet by ity o f 24 hr 09:12: mouth. [address] buprenorphi Yes [place] Uni vers ne HCL 4-18 750 mcg ity of (BELBUCA) 09:12: buccal [place] [address] Medica l Film 1 FILM BY Branch BUCCAL ROUTE TWICE A DAY buprenorphi 2022-0 Yes Butrans 10 Univers ne 4-18 mcg/hour ity of (BUTRANS) 09:12: transderma [place] 10 mcg/hour 14 l patch Medic al patch APPLY 1 Branch PATCH BY TRANSDERMA L ROUTE EVERY WEEK FOR 28 DAYS albuterol Yes albuterol Uni vers 90 4-18 sulfate ity of mcg/actuati 09:12: HFA 90 [place] on inhaler 14 mcg/actuat Med ical ion Branch aerosol inhaler levETIRAcet 0 Yes TWICE Unive rs am 500 mg 4-18 DAILY. ity of tablet 09:12: [address] gabapentin Yes gabapentin U nivers 300 mg 4-18 300 mg ity of capsule 09:12: capsule [address] famotidine Yes famotidine U nivers 20 mg 4-18 20 mg ity of tablet 09:12: tablet [address] clonazePAM Yes clonazepam U nivers 0.5 mg 4-18 0.5 mg ity of tablet 09:12: tablet [place] [address] TAKE 1 Medical TABLET BY Branch MOUTH EVERY DAY AT BEDTIME NEEDED FOR SEVERE ANXIETY/PA STACEY ATTACK buPROPion Yes 300mg Take 1 Unive rs XL 300 mg 4-18 tablet by ity o f 24 hr 09:12: mouth. [address] buprenorphi Yes [place] Uni vers ne HCL 4-18 750 mcg ity of (BELBUCA) 09:12: buccal [place] [address] Medica l Film 1 FILM BY Branch BUCCAL ROUTE TWICE A DAY buprenorphi 0 Yes Butrans 10 Univers ne 4-18 mcg/hour ity of (BUTRANS) 09:12: transderma [place] 10 mcg/hour 14 l patch Medic al patch APPLY 1 Branch PATCH BY TRANSDERMA L ROUTE EVERY WEEK FOR 28 DAYS albuterol 2022-0 Yes albuterol Uni vers 90 4-18 sulfate ity of mcg/actuati 09:12: HFA 90 [place] on inhaler 14 mcg/actuat Med ical ion Branch aerosol inhaler levETIRAcet 0 Yes TWICE Unive rs am 500 mg 4-18 DAILY. ity of tablet 09:12: [address] gabapentin Yes gabapentin U nivers 300 mg 4-18 300 mg ity of capsule 09:12: capsule [address] famotidine 0 Yes famotidine U nivers 20 mg 4-18 20 mg ity of tablet 09:12: tablet [address] clonazePAM Yes clonazepam U nivers 0.5 mg 4-18 0.5 mg ity of tablet 09:12: tablet [place] [address] TAKE 1 Medical TABLET BY Branch MOUTH EVERY DAY AT BEDTIME NEEDED FOR SEVERE ANXIETY/PA STACEY ATTACK buPROPion Yes 300mg Take 1 Unive rs XL 300 mg 4-18 tablet by ity o f 24 hr 09:12: mouth. [place] tablet 14 [facility] buprenorphi Yes [place] Uni vers ne HCL 4-18 750 mcg ity of (BELBUCA) 09:12: buccal [place] [address] Medica l Film 1 FILM BY Branch BUCCAL ROUTE TWICE A DAY buprenorphi Yes Butrans 10 Univers ne 4-18 mcg/hour ity of (BUTRANS) 09:12: transderma [place] 10 mcg/hour 14 l patch Medic al patch APPLY 1 Branch PATCH BY TRANSDERMA L ROUTE EVERY WEEK FOR 28 DAYS albuterol Yes albuterol Uni vers 90 4-18 sulfate ity of mcg/actuati 09:12: HFA 90 [place] on inhaler 14 mcg/actuat Med ical ion Branch aerosol inhaler levETIRAcet Yes TWICE Unive rs am 500 mg 4-18 DAILY. ity of tablet 09:12: [address] gabapentin Yes gabapentin U nivers 300 mg 4-18 300 mg ity of capsule 09:12: capsule [address] famotidine 0 Yes famotidine U nivers 20 mg 4-18 20 mg ity of tablet 09:12: tablet [address] clonazePAM 2022-0 Yes clonazepam U nivers 0.5 mg 4-18 0.5 mg ity of tablet 09:12: tablet [place] [address] TAKE 1 Medical TABLET BY Branch MOUTH EVERY DAY AT BEDTIME NEEDED FOR SEVERE ANXIETY/PA STACEY ATTACK buPROPion 0 Yes 300mg Take 1 Unive rs XL 300 mg 4-18 tablet by ity o f 24 hr 09:12: mouth. [place] tablet 14 Medical Branch buprenorphi Yes [place] Uni vers ne HCL 4-18 750 mcg ity of (BELBUCA) 09:12: buccal [place] [address] Medica l Film 1 FILM BY Branch BUCCAL ROUTE TWICE A DAY buprenorphi Yes Butrans 10 Univers ne 4-18 mcg/hour ity of (BUTRANS) 09:12: transderma [place] 10 mcg/hour 14 l patch Medic al patch APPLY 1 Branch PATCH BY TRANSDERMA L ROUTE EVERY WEEK FOR 28 DAYS albuterol Yes albuterol Uni vers 90 4-18 sulfate ity of mcg/actuati 09:12: HFA 90 [place] inhaler 14 mcg/actuat Med ical ion Branch aerosol inhaler levETIRAcet Yes TWICE Unive rs am 500 mg 4-18 DAILY. ity of tablet 09:12: [address] gabapentin Yes gabapentin U nivers 300 mg 4-18 300 mg ity of capsule 09:12: capsule [address] famotidine Yes famotidine U nivers 20 mg 4-18 20 mg ity of tablet 09:12: tablet [address] clonazePAM Yes clonazepam U nivers 0.5 mg 4-18 0.5 mg ity of tablet 09:12: tablet [place] [address] TAKE 1 Medical TABLET BY Branch MOUTH EVERY DAY AT BEDTIME NEEDED FOR SEVERE ANXIETY/PA STACEY ATTACK buPROPion Yes 300mg Take 1 Unive rs XL 300 mg 4-18 tablet by ity o f 24 hr 09:12: mouth. [address] buprenorphi Yes [place] Uni vers ne HCL 4-18 750 mcg ity of (BELBUCA) 09:12: buccal [place] [address] Medica l Film 1 FILM BY Branch BUCCAL ROUTE TWICE A DAY buprenorphi Yes Butrans 10 Univers ne 4-18 mcg/hour ity of (BUTRANS) 09:12: transderma [place] 10 mcg/hour 14 l patch Medic al patch APPLY 1 Branch PATCH BY TRANSDERMA L ROUTE EVERY WEEK FOR 28 DAYS albuterol Yes albuterol Uni vers 90 4-18 sulfate ity of mcg/actuati 09:12: HFA 90 [place] inhaler 14 mcg/actuat Med ical ion Branch aerosol inhaler levETIRAcet Yes TWICE Unive rs am 500 mg 4-18 DAILY. ity of tablet 09:12: [address] gabapentin 0 Yes gabapentin U nivers 300 mg 4-18 300 mg ity of capsule 09:12: capsule [address] famotidine 0 Yes famotidine U nivers 20 mg 4-18 20 mg ity of tablet 09:12: tablet [address] clonazePAM 0 Yes clonazepam U nivers 0.5 mg 4-18 0.5 mg ity of tablet 09:12: tablet [place] [address] TAKE 1 Medical TABLET BY Branch MOUTH EVERY DAY AT BEDTIME NEEDED FOR SEVERE ANXIETY/PA STACEY ATTACK buPROPion 0 Yes 300mg Take 1 Unive rs XL 300 mg 4-18 tablet by ity o f 24 hr 09:12: mouth. [place] tablet 14 [facility] buprenorphi Yes [place] Uni vers ne HCL 4-18 750 mcg ity of (BELBUCA) 09:12: buccal [place] [address] Medica l Film 1 FILM BY Branch BUCCAL ROUTE TWICE A DAY buprenorphi 0 Yes Butrans 10 Univers ne 4-18 mcg/hour ity of (BUTRANS) 09:12: transderma [place] 10 mcg/hour 14 l patch Medic al patch APPLY 1 Branch PATCH BY TRANSDERMA L ROUTE EVERY WEEK FOR 28 DAYS albuterol 0 Yes albuterol Uni vers 90 4-18 sulfate ity of mcg/actuati 09:12: HFA [place] inhaler 14 mcg/actuat Med ical ion Branch aerosol inhaler aspirin 2022-0 2022- No 162mg 162 mg, Unive rs chewable 12-19-15 Oral, ONCE ity of tablet 162 10:30: 09:42 NOW, 1 [place] mg 00 :00 dose, On Medical Sat Branch 12/19/22 at 0530, Routine iopamidol 0 2022- No [id number] 99mL 99 mL, U nivers (ISOVUE -15 04-15 Intravenou ity o f 370-500 mL) 09:20: 09:30 s, ONCE, 1 [place] injection 00 :00 dose, On Medica l 99 mL [facility] Branch 12/19/22 at 0430, Routine adalimumab 2022-0 Yes 40mg inject 1 Uni vers (HUMIRA) 40 4-11 Syringe ity o f mg/0.8 mL 10:43: under the [place] injection 17 skin. [facility] Branch ibuprofen 2022-0 Yes ibuprofen Uni vers 800 mg 4-11 800 mg ity of tablet 10:43: tablet [address] adalimumab 3-0 Yes 40mg inject 1 Uni vers (HUMIRA) 40 4-11 Syringe ity o f mg/0.8 mL 10:43: under the [place] injection 17 skin. [facility] Branch ibuprofen 2022-0 Yes ibuprofen Uni vers 800 mg 4-11 800 mg ity of tablet 10:43: tablet [address] adalimumab 2023-0 Yes 40mg inject 1 Uni vers (HUMIRA) 40 4-11 Syringe ity o f mg/0.8 mL 10:43: under the [place] injection 17 skin. [facility] Branch ibuprofen 2022-0 Yes ibuprofen Uni vers 800 mg 4-11 800 mg ity of tablet 10:43: tablet [address] adalimumab 3-0 Yes 40mg inject 1 Uni vers (HUMIRA) 40 4-11 Syringe ity o f mg/0.8 mL 10:43: under the [place] injection 17 skin. [facility] ibuprofen 2022-0 Yes ibuprofen Uni vers 800 mg 4-11 800 mg ity of tablet 10:43: tablet [address] adalimumab 2023-0 Yes 40mg inject 1 Uni vers (HUMIRA) 40 4-11 Syringe ity o f mg/0.8 mL 10:43: under the [place] injection 17 skin. [facility] ibuprofen 2022-0 Yes ibuprofen Uni vers 800 mg 4-11 800 mg ity of tablet 10:43: tablet [address] adalimumab 2023-0 Yes 40mg inject 1 Uni vers (HUMIRA) 40 4-11 Syringe ity o f mg/0.8 mL 10:43: under the [place] injection 17 skin. [facility] ibuprofen 3-0 Yes ibuprofen Uni vers 800 mg 4-11 800 mg ity of tablet 10:43: tablet [address] adalimumab 2023-0 Yes 40mg inject 1 Uni vers (HUMIRA) 40 4-11 Syringe ity o f mg/0.8 mL 10:43: under the [place] injection 17 skin. Medical Branch ibuprofen 0 Yes ibuprofen Uni vers 800 mg 4-11 800 mg ity of tablet 10:43: tablet Medical Branch adalimumab 2022-0 Yes 40mg inject 1 Uni vers (HUMIRA) 40 4-11 Syringe ity o f mg/0.8 mL 10:43: under the [place] injection 17 skin. Medical Branch ibuprofen 2022-0 Yes ibuprofen Uni vers 800 mg 4-11 800 mg ity of tablet 10:43: tablet Medical Branch adalimumab 2022-0 Yes 40mg inject 1 Uni vers (HUMIRA) 40 4-11 Syringe ity o f mg/0.8 mL 10:43: under the [place] injection 17 skin. Medical Branch ibuprofen Yes ibuprofen Uni vers 800 mg 4-11 800 mg ity of tablet 10:43: tablet Medical Branch adalimumab 2022-0 Yes 40mg inject 1 Uni vers (HUMIRA) 40 4-11 Syringe ity o f mg/0.8 mL 10:43: under the [place] injection 17 skin. Medical Branch ibuprofen Yes ibuprofen Uni vers 800 mg 4-11 800 mg ity of tablet 10:43: tablet Medical Branch adalimumab 2022-0 Yes 40mg inject 1 Uni vers (HUMIRA) 40 4-11 Syringe ity o f mg/0.8 mL 10:43: under the [place] injection 17 skin. Medical Branch ibuprofen 2022-0 Yes ibuprofen Uni vers 800 mg 4-11 800 mg ity of tablet 10:43: tablet Medical Branch adalimumab 2022-0 Yes 40mg inject 1 Uni vers (HUMIRA) 40 4-11 Syringe ity o f mg/0.8 mL 10:43: under the [place] injection 17 skin. Medical Branch ibuprofen 2022-0 Yes ibuprofen Uni vers 800 mg 4-11 800 mg ity of tablet 10:43: tablet Medical Branch adalimumab 3-0 Yes 40mg inject 1 Uni vers (HUMIRA) 40 4-11 Syringe ity o f mg/0.8 mL 10:43: under the [place] injection 17 skin. Medical Branch ibuprofen 2022-0 Yes ibuprofen Uni vers 800 mg 4-11 800 mg ity of tablet 10:43: tablet Medical Branch adalimumab 2023-0 Yes 40mg inject 1 Uni vers (HUMIRA) 40 4-11 Syringe ity o f mg/0.8 mL 10:43: under the [place] injection 17 skin. Medical Branch ibuprofen 2022-0 Yes ibuprofen Uni vers 800 mg 4-11 800 mg ity of tablet 10:43: tablet Medical Branch adalimumab 2022-0 Yes 40mg inject 1 Uni vers (HUMIRA) 40 4-11 Syringe ity o f mg/0.8 mL 10:43: under the [place] injection 17 skin. Medical Branch ibuprofen 0 Yes ibuprofen Uni vers 800 mg 4-11 800 mg ity of tablet 10:43: tablet Medical Branch adalimumab 2022-0 Yes 40mg inject 1 Uni vers (HUMIRA) 40 4-11 Syringe ity o f mg/0.8 mL 10:43: under the [place] injection 17 skin. Medical Branch ibuprofen Yes ibuprofen Uni vers 800 mg 4-11 800 mg ity of tablet 10:43: tablet Medical Branch adalimumab 2022-0 Yes 40mg inject 1 Uni vers (HUMIRA) 40 4-11 Syringe ity o f mg/0.8 mL 10:43: under the [place] injection 17 skin. Medical Branch ibuprofen 0 Yes ibuprofen Uni vers 800 mg 4-11 800 mg ity of tablet 10:43: tablet Medical Branch adalimumab 2022-0 Yes 40mg inject 1 Uni vers (HUMIRA) 40 4-11 Syringe ity o f mg/0.8 mL 10:43: under the [place] injection 17 skin. Medical Branch ibuprofen 0 Yes ibuprofen Uni vers 800 mg 4-11 800 mg ity of tablet 10:43: tablet Medical Branch adalimumab 3-0 Yes 40mg inject 1 Uni vers (HUMIRA) 40 4-11 Syringe ity o f mg/0.8 mL 10:43: under the [place] injection 17 skin. Medical Branch ibuprofen 2022-0 Yes ibuprofen Uni vers 800 mg 4-11 800 mg ity of tablet 10:43: tablet Medical Branch adalimumab 3-0 Yes 40mg inject 1 Uni vers (HUMIRA) 40 4-11 Syringe ity o f mg/0.8 mL 10:43: under the [place] injection 17 skin. Medical Branch ibuprofen 2022-0 Yes ibuprofen Uni vers 800 mg 4-11 800 mg ity of tablet 10:43: tablet [address] Branch adalimumab 2023-0 Yes 40mg inject 1 Uni vers (HUMIRA) 40 4-11 Syringe ity o f mg/0.8 mL 10:43: under the [place] injection 17 skin. Medical Branch ibuprofen 3-0 Yes ibuprofen Uni vers 800 mg 4-11 800 mg ity of tablet 10:43: tablet [address] Branch pregabalin 2023-0 Yes 150mg Take 1 Univ ers 150 mg 3-30 capsule by ity of capsule 00:00: mouth in [place] the Medical morning Branch and 1 capsule in the evening. meloxicam 2023-0 Yes Univers 15 mg 3-30 ity of tablet 00:00: [place] [facility] Branch HYDROcodone 2023-0 Yes 1{tbl} Take 1 Un travis -acetaminop 3-30 tablet by ity of hen 5-325 00:00: mouth 4 [place] mg tablet [facility] Medical times [place] daily. pregabalin 2023-0 Yes 150mg Take 1 Univ ers 150 mg 3-30 capsule by ity of capsule 00:00: mouth in [place] the Medical morning Branch and 1 capsule in the evening. meloxicam 2023-0 Yes [facility] 15 mg 3-30 ity of tablet 00:00: [place] [facility] Branch HYDROcodone 2023-0 Yes 1{tbl} Take 1 [facility] [place] -acetaminop 3-30 tablet by ity of hen 5-325 00:00: mouth 4 [place] mg tablet [facility] ([facility] Medical times [place] daily. pregabalin 2023-0 Yes 150mg Take 1 [facility] 150 mg 3-30 capsule by ity of capsule 00:00: mouth in [place] the Medical morning Branch and 1 capsule in the evening. meloxicam 2023-0 Yes [facility] 15 mg 3-30 ity of tablet 00:00: [place] [facility] Branch HYDROcodone 2023-0 Yes 1{tbl} Take 1 [facility] -acetaminop 3-30 tablet by ity of hen 5-325 00:00: mouth 4 [place] mg tablet 00 (four) Medical times [place] daily. pregabalin 2023-0 Yes 150mg Take 1 [facility] 150 mg 3-30 capsule by ity of capsule 00:00: mouth in [place] the Medical morning Branch and 1 capsule in the evening. meloxicam 2023-0 Yes [facility] 15 mg 3-30 ity of tablet 00:00: [place] 00 [facility] Branch HYDROcodone 2023-0 Yes 1{tbl} Take 1 [facility] [place] -acetaminop 3-30 tablet by ity of hen 5-325 00:00: mouth 4 [place] mg tablet ([facility]) [facility] times [place] daily. pregabalin 2023-0 Yes 150mg Take 1 [facility] 150 mg 3-30 capsule by ity of capsule 00:00: mouth in [place] the Medical morning Branch and 1 capsule in the evening. meloxicam 2023-0 Yes [facility] 15 mg 3-30 ity of tablet 00:00: [place] [facility] Branch HYDROcodone 2023-0 Yes 1{tbl} Take 1 [facility] [place] -acetaminop 3-30 tablet by ity of hen 5-325 00:00: mouth 4 [place] mg tablet ([facility]) [facility] times [place] daily. pregabalin 2023-0 Yes 150mg Take 1 [facility] 150 mg 3-30 capsule by ity of capsule 00:00: mouth in [place] the [facility] morning Branch and 1 capsule in the evening. meloxicam 2023-0 Yes [facility] 15 mg 3-30 ity of tablet 00:00: [place] [facility] Branch HYDROcodone 2023-0 Yes 1{tbl} Take 1 [facility] -acetaminop 3-30 tablet by ity of hen 5-325 00:00: mouth 4 [place] mg tablet ([facility]) [facility] daily. pregabalin 2023-0 Yes 150mg Take 1 [facility] 150 mg 3-30 capsule by ity of capsule 00:00: mouth in [place] the [facility] morning Branch and 1 capsule in the evening. meloxicam 2023-0 Yes [facility] 15 mg 3-30 ity of tablet 00:00: [place] [facility] Branch HYDROcodone 2023-0 Yes 1{tbl} Take 1 [facility] -acetaminop 3-30 tablet by ity of hen 5-325 00:00: mouth 4 [place] mg tablet 00 ([facility]) [facility] times [place] daily. pregabalin 2023-0 Yes 150mg Take 1 [facility] 150 mg 3-30 capsule by ity of capsule 00:00: mouth in [place] the [facility] morning Branch and 1 capsule in the evening. meloxicam 2023-0 Yes [facility] 15 mg 3-30 ity of tablet 00:00: [place] 00 [facility] Branch HYDROcodone 2023-0 Yes 1{tbl} Take 1 [facility] -acetaminop 3-30 tablet by ity of hen 5-325 00:00: mouth 4 [place] mg tablet ([facility]) [facility] times [place] daily. pregabalin 2023-0 Yes 150mg Take 1 [facility] 150 mg 3-30 capsule by ity of capsule 00:00: mouth in [place] the Medical morning Branch and 1 capsule in the evening. meloxicam 2023-0 Yes [facility] 15 mg 3-30 ity of tablet 00:00: [place] [facility] Branch HYDROcodone 2023-0 Yes 1{tbl} Take 1 [facility] -acetaminop 3-30 tablet by ity of hen 5-325 00:00: mouth 4 [place] mg tablet ([facility]) [facility] times [place] daily. pregabalin 2023-0 Yes 150mg Take 1 [facility] 150 mg 3-30 capsule by ity of capsule 00:00: mouth in [place] the [facility] morning Branch and 1 capsule in the evening. meloxicam 2023-0 Yes [facility] 15 mg 3-30 ity of tablet 00:00: [place] [facility] Branch HYDROcodone 2023-0 Yes 1{tbl} Take 1 [facility] -acetaminop 3-30 tablet by ity of hen 5-325 00:00: mouth 4 [place] mg tablet ([facility]) [facility] times [place] daily. pregabalin 2023-0 Yes 150mg Take 1 [facility] 150 mg 3-30 capsule by ity of capsule 00:00: mouth in [place] the [facility] morning Branch and 1 capsule in the evening. meloxicam 2023-0 Yes [facility] 15 mg 3-30 ity of tablet 00:00: [place] [facility] Branch HYDROcodone 2023-0 Yes 1{tbl} Take 1 [facility] -acetaminop 3-30 tablet by ity of hen 5-325 00:00: mouth 4 [place] mg tablet ([facility]) [facility] times [place] daily. pregabalin 2023-0 Yes 150mg Take 1 [facility] 150 mg 3-30 capsule by ity of capsule 00:00: mouth in [place] the [facility] morning Branch and 1 capsule in the evening. meloxicam 2023-0 Yes [facility] 15 mg 3-30 ity of tablet 00:00: [place] [facility] Branch HYDROcodone 2023-0 Yes 1{tbl} Take 1 [facility] -acetaminop 3-30 tablet by ity of hen 5-325 00:00: mouth 4 [place] mg tablet 00 ([facility]) Medical times Branch daily. pregabalin 2023-0 Yes 150mg Take 1 [facility] 150 mg 3-30 capsule by ity of capsule 00:00: mouth in [place] the Medical morning Branch and 1 capsule in the evening. meloxicam 2023-0 Yes [facility] 15 mg 3-30 ity of tablet 00:00: [place] 00 [facility] Branch HYDROcodone 2023-0 Yes 1{tbl} Take 1 [facility] -acetaminop 3-30 tablet by ity of hen 5-325 00:00: mouth 4 [place] mg tablet 00 ([facility]) Medical times Branch daily. pregabalin 2023-0 Yes 150mg Take 1 [facility] 150 mg 3-30 capsule by ity of capsule 00:00: mouth in [place] the Medical morning Branch and 1 capsule in the evening. meloxicam 2023-0 Yes [facility] 15 mg 3-30 ity of tablet 00:00: [place] [facility] Branch HYDROcodone 2023-0 Yes 1{tbl} Take 1 [facility] -acetaminop 3-30 tablet by ity of hen 5-325 00:00: mouth 4 [place] mg tablet 00 ([facility]) Medical times [place] daily. pregabalin 2023-0 Yes 150mg Take 1 [facility] 150 mg 3-30 capsule by ity of capsule 00:00: mouth in [place] the Medical morning Branch and 1 capsule in the evening. meloxicam 2023-0 Yes [facility] 15 mg 3-30 ity of tablet 00:00: [place] 00 [facility] Branch HYDROcodone 2023-0 Yes 1{tbl} Take 1 [facility] -acetaminop 3-30 tablet by ity of hen 5-325 00:00: mouth 4 [place] mg tablet 00 (four) Medical times Branch daily. pregabalin 2023-0 Yes 150mg Take 1 [facility] 150 mg 3-30 capsule by ity of capsule 00:00: mouth in [place] the Medical morning Branch and 1 capsule in the evening. meloxicam 2023-0 Yes [facility] 15 mg 3-30 ity of tablet 00:00: [place] [facility] Branch HYDROcodone 2023-0 Yes 1{tbl} Take 1 [facility] -acetaminop 3-30 tablet by ity of hen 5-325 00:00: mouth 4 [place] mg tablet 00 (four) Medical times [place] daily. pregabalin 2023-0 Yes 150mg Take 1 [facility] 150 mg 3-30 capsule by ity of capsule 00:00: mouth in [place] the Medical morning Branch and 1 capsule in the evening. meloxicam 2023-0 Yes [facility] 15 mg 3-30 ity of tablet 00:00: [place] 00 Medical Branch HYDROcodone 2023-0 Yes 1{tbl} Take 1 [facility] -acetaminop 3-30 tablet by ity of hen 5-325 00:00: mouth 4 [place] mg tablet 00 (four) Medical times [place] daily. pregabalin 2023-0 Yes 150mg Take 1 [facility] 150 mg 3-30 capsule by ity of capsule 00:00: mouth in [place] the Medical morning Branch and 1 capsule in the evening. meloxicam 2023-0 Yes [facility] 15 mg 3-30 ity of tablet 00:00: [place] 00 [facility] Branch HYDROcodone 2023-0 Yes 1{tbl} Take 1 [facility] -acetaminop 3-30 tablet by ity of hen 5-325 00:00: mouth 4 [place] mg tablet 00 (four) Medical times [place] daily. pregabalin 2023-0 Yes 150mg Take 1 [facility] 150 mg 3-30 capsule by ity of capsule 00:00: mouth in [place] the Medical morning Branch and 1 capsule in the evening. meloxicam 2023-0 Yes [facility] 15 mg 3-30 ity of tablet 00:00: [place] 00 Medical Branch HYDROcodone 2023-0 Yes 1{tbl} Take 1 [facility] -acetaminop 3-30 tablet by ity of hen 5-325 00:00: mouth 4 [place] mg tablet 00 (four) Medical times Branch daily. pregabalin 2023-0 Yes 150mg Take 1 [facility] 150 mg 3-30 capsule by ity of capsule 00:00: mouth in [place] the Medical morning Branch and 1 capsule in the evening. meloxicam 2023-0 Yes [facility] 15 mg 3-30 ity of tablet 00:00: [place] 00 Medical Branch HYDROcodone 2023-0 Yes 1{tbl} Take 1 [facility] -acetaminop 3-30 tablet by ity of hen 5-325 00:00: mouth 4 [place] mg tablet 00 (four) Medical times Branch daily. pregabalin 3-0 Yes 150mg Take 1 [facility] 150 mg 3-30 capsule by ity of capsule 00:00: mouth in [place] 00 the Medical morning Branch and 1 capsule in the evening. meloxicam 2023-0 Yes [facility] 15 mg 3-30 ity of tablet 00:00: [place] 00 Medical Branch HYDROcodone 3-0 Yes 1{tbl} Take 1 [facility] -acetaminop 3-30 tablet by ity of hen 5-325 00:00: mouth 4 [place] mg tablet 00 (four) Medical times Branch daily. cyclobenzap 3-0 Yes TAKE 1 [facility] ers rine 10 mg 3-15 TABLET BY ity of tablet 00:00: [facility] 00 THREE Medical TIMES A Branch DAY NEEDED FOR 30 DAYS amitriptyli 3-0 Yes TAKE 1 [facility] ers ne 50 mg 3-15 TABLET BY ity of tablet 00:00: [facility] 00 EVERY DAY Medical AT BEDTIME Branch FOR 30 DAYS cyclobenzap 3-0 Yes TAKE 1 [facility] ers rine 10 mg 3-15 TABLET BY ity of tablet 00:00: MOUTH [place] 00 THREE Medical TIMES A Branch DAY NEEDED FOR 30 DAYS amitriptyli 3-0 Yes TAKE 1 [facility] ne 50 mg 3-15 TABLET BY ity of tablet 00:00: [facility] 00 EVERY DAY Medical AT BEDTIME Branch FOR 30 DAYS cyclobenzap 3-0 Yes TAKE 1 [facility] rine 10 mg 3-15 TABLET BY ity of tablet 00:00: [facility] THREE Medical TIMES A Branch DAY NEEDED FOR 30 DAYS amitriptyli 2023-0 Yes TAKE 1 [facility] ne 50 mg 3-15 TABLET BY ity of tablet 00:00: MOUTH [place] 00 EVERY DAY Medical AT BEDTIME Branch FOR 30 DAYS cyclobenzap 2023-0 Yes TAKE 1 [facility] rine 10 mg 3-15 TABLET BY ity of tablet 00:00: [facility] 00 THREE Medical TIMES A Branch DAY NEEDED FOR 30 DAYS amitriptyli 2023-0 Yes TAKE 1 [facility] ne 50 mg 3-15 TABLET BY ity of tablet 00:00: [facility] 00 EVERY DAY Medical AT BEDTIME Branch FOR 30 DAYS cyclobenzap 2023-0 Yes TAKE 1 [facility] rine 10 mg 3-15 TABLET BY ity of tablet 00:00: MOUTH [place] 00 THREE Medical TIMES A Branch DAY NEEDED FOR 30 DAYS amitriptyli 2023-0 Yes TAKE 1 [facility] ne 50 mg 3-15 TABLET BY ity of tablet 00:00: [facility] [place] [facility] cycl[facility] 3-0 Yes TAKE 1 [facility] rine 10 mg 3-15 TABLET BY ity of tablet 00:00: [facility] [place] THREE Medical TIMES A Branch DAY NEEDED FOR 30 DAYS amitriptyli 2023-0 Yes TAKE 1 [facility] ne 50 mg 3-15 TABLET BY ity of tablet 00:00: [facility] [place] [facility] cyclobenzap 2022-0 Yes TAKE 1 [facility] rine 10 mg 3-15 TABLET BY ity of tablet 00:00: [facility] THREE Medical TIMES A Branch DAY NEEDED FOR 30 DAYS amitriptyli 3-0 Yes TAKE 1 [facility] ne 50 mg 3-15 TABLET BY ity of tablet 00:00: [facility] EVERY DAY Medical AT [facility] FOR 30 DAYS cyclobenzap 3-0 Yes TAKE 1 [facility] rine 10 mg 3-15 TABLET BY ity of tablet 00:00: [facility] [place] THREE Medical TIMES A Branch DAY NEEDED FOR 30 DAYS amitriptyli 3-0 Yes TAKE 1 [facility] ne 50 mg 3-15 TABLET BY ity of tablet 00:00: [facility] [place] EVERY DAY Medical AT [facility] FOR 30 DAYS cyclobenzap 3-0 Yes TAKE 1 [facility] rine 10 mg 3-15 TABLET BY ity of tablet 00:00: [facility] [place] THREE Medical TIMES A Branch DAY NEEDED FOR 30 DAYS amitriptyli 3-0 Yes TAKE 1 [facility] ne 50 mg 3-15 TABLET BY ity of tablet 00:00: [facility] [place] EVERY DAY Medical AT BEDTIME [place] FOR 30 DAYS cyclobenzap 3-0 Yes TAKE 1 [facility] rine 10 mg 3-15 TABLET BY ity of tablet 00:00: [facility] THREE Medical TIMES A Branch DAY NEEDED FOR 30 DAYS amitriptyli 2023-0 Yes TAKE 1 [facility] ne 50 mg 3-15 TABLET BY ity of tablet 00:00: [facility] EVERY DAY Medical AT BEDTIME Branch FOR 30 DAYS cyclobenzap 2023-0 Yes TAKE 1 [facility] rine 10 mg 3-15 TABLET BY ity of tablet 00:00: [place] 00 THREE Medical TIMES A Branch DAY NEEDED FOR 30 DAYS amitriptyli 3-0 Yes TAKE 1 [facility] ne 50 mg 3-15 TABLET BY ity of tablet 00:00: MOUTH EVERY DAY Medical AT BEDTIME Branch FOR 30 DAYS cyclobenzap 3-0 Yes TAKE 1 [facility] rine 10 mg 3-15 TABLET BY ity of tablet 00:00: [facility] [place] THREE Medical TIMES A Branch DAY NEEDED FOR 30 DAYS amitriptyli 2023-0 Yes TAKE 1 [facility] ne 50 mg 3-15 TABLET BY ity of tablet 00:00: [facility] [place] EVERY DAY Medical AT BEDTIME Branch FOR 30 DAYS cyclobenzap 2022-0 Yes TAKE 1 [facility] rine 10 mg 3-15 TABLET BY ity of tablet 00:00: [facility] [place] THREE Medical TIMES A Branch DAY NEEDED FOR 30 DAYS amitriptyli 3-0 Yes TAKE 1 [facility] ne 50 mg 3-15 TABLET BY ity of tablet 00:00: [facility] EVERY DAY Medical AT BEDTIME Branch FOR 30 DAYS cyclobenzap 3-0 Yes TAKE 1 [facility] rine 10 mg 3-15 TABLET BY ity of tablet 00:00: [facility] [place] THREE Medical TIMES A Branch DAY NEEDED FOR 30 DAYS amitriptyli 3-0 Yes TAKE 1 [facility] ne 50 mg 3-15 TABLET BY ity of tablet 00:00: [facility] [place] [facility] cyclobenzap 3-0 Yes TAKE 1 [facility] rine 10 mg 3-15 TABLET BY ity of tablet 00:00: [facility] [place] THREE Medical TIMES A Branch DAY NEEDED FOR 30 DAYS amitriptyli 2023-0 Yes TAKE 1 [facility] ne 50 mg 3-15 TABLET BY ity of tablet 00:00: [facility] [place] EVERY DAY Medical AT BEDTIME Branch FOR 30 DAYS cyclobenzap 3-0 Yes TAKE 1 [facility] rine 10 mg 3-15 TABLET BY ity of tablet 00:00: [facility] [place] THREE Medical TIMES A Branch DAY NEEDED FOR 30 DAYS amitriptyli 2023-0 Yes TAKE 1 [facility] ne 50 mg 3-15 TABLET BY ity of tablet 00:00: [facility] EVERY DAY Medical AT BEDTIME Branch FOR 30 DAYS cyclobenzap 0 Yes TAKE 1 [facility] rine 10 mg 3-15 TABLET BY ity of tablet 00:00: [facility] THREE Medical TIMES A Branch DAY NEEDED FOR 30 DAYS amitriptyli 2022-0 Yes TAKE 1 [facility] ne 50 mg 3-15 TABLET BY ity of tablet 00:00: [facility] 00 EVERY DAY Medical AT [facility] FOR 30 DAYS cyclobenzap 2022-0 Yes TAKE 1 [facility] ers rine 10 mg 3-15 TABLET BY ity of tablet 00:00: MOUTH [place] THREE Medical TIMES A Branch DAY NEEDED FOR 30 DAYS amitriptyli 0 Yes TAKE 1 [facility] ne 50 mg 3-15 TABLET BY ity of tablet 00:00: [facility] EVERY DAY Medical AT [facility] FOR 30 DAYS cyclobenzap 0 Yes TAKE 1 Univ ers rine 10 mg 3-15 TABLET BY ity of tablet 00:00: [facility] THREE Medical TIMES A Branch DAY NEEDED FOR 30 DAYS amitriptyli 0 Yes TAKE 1 [facility] ne 50 mg 3-15 TABLET BY ity of tablet 00:00: [facility] EVERY DAY Medical AT [facility] FOR 30 DAYS cyclobenzap 0 Yes TAKE 1 [facility] ers rine 10 mg 3-15 TABLET BY ity of tablet 00:00: [facility] 00 THREE Medical TIMES A Branch DAY NEEDED FOR 30 DAYS amitriptyli 2022-0 Yes TAKE 1 [facility] ne 50 mg 3-15 TABLET BY ity of tablet 00:00: [facility] EVERY DAY Medical AT [facility] FOR 30 DAYS cyclobenzap 2022-0 Yes TAKE 1 [facility] ers rine 10 mg 3-15 TABLET BY ity of tablet 00:00: [facility] THREE Medical TIMES A Branch DAY NEEDED FOR 30 DAYS amitriptyli 0 Yes TAKE 1 [facility] ne 50 mg 3-15 TABLET BY ity of tablet 00:00: [facility] 00 EVERY DAY Medical AT [facility] FOR 30 DAYS NaCl 0.9% 2022- No 500mL at 999 Univ ers (NS) bolus 11-03 02-28 mL/hr, 500 it y of infusion 15:45: 16:19 mL, IV [place] 500 mL 00 :00 [place]gy[place], Medical ONCE, 1 Branch dose, On 11/03/23 at 0945, STAT LORazepam 3-0 2023- No 1mg 1 mg, Slow U nivers (ATIVAN) 11-03 IV Push, ity of injection 1 15:00: 15:23 [place]CE, 1 [place] mg 00 :00 dose, On Medical Tue Branch 11/03/22 at 0900, STAT diphenhydrA 3-0 2022- No 25mg 25 mg, Uni vers MINE 11-03 Slow IV ity of (BENADRYL) 15:00: 15:18 Push, [place] injection 00 :00 ONCE, 1 Medical 25 mg dose, On Branch 11/03/22 at 0900, STAT LORazepam 3-0 Yes [id number] 1mg Take 1 U n[facility] (ATIVAN) 1 2-28 tablet by ity of mg tablet 00:00: mouth 2 00 (two) Medical times Branch daily as needed for Anxiety or Agitation. hydrOXYzine 2023-0 Yes [id number] 25mg Take 1 Univers (VISTARIL) 2-28 capsule by ity of 25 mg 00:00: mouth 3 [place] capsule 00 (three) Medical times Branch daily as needed for Anxiety. LORazepam 2023-0 Yes [id number] 1mg Take 1 [facility] n[facility] (ATIVAN) 1 2-28 tablet by ity of mg tablet 00:00: mouth 2 00 (two) Medical times Branch daily as needed for Anxiety or Agitation. hydrOXYzine 2023-0 Yes [id number] 25mg Take 1 [facility] (VISTARIL) 2-28 capsule by ity of 25 mg 00:00: mouth 3 [place] capsule 00 (three) Medical times Branch daily as needed for Anxiety. LORazepam 2023-0 Yes [id number] 1mg Take 1 [facility] n[facility] (ATIVAN) 1 2-28 tablet by ity of mg tablet 00:00: mouth 2 00 (two) Medical times Branch daily as needed for Anxiety or Agitation. hydrOXYzine 2023-0 Yes [id number] 25mg Take 1 [facility] (VISTARIL) 2-28 capsule by ity of 25 mg 00:00: mouth 3 [place] capsule 00 (three) Medical times Branch daily as needed for Anxiety. LORazepam 2023-0 Yes [id number] 1mg Take 1 U nivers (ATIVAN) 1 2-28 tablet by ity of mg tablet 00:00: mouth 2 [place] 00 (two) Medical times Branch daily as needed for Anxiety or Agitation. hydrOXYzine 2023-0 Yes [id number] 25mg Take 1 Univers (VISTARIL) 2-28 capsule by ity of 25 mg 00:00: mouth 3 [place] capsule 00 (three) Medical times Branch daily as needed for Anxiety. LORazepam 2023-0 Yes [id number] 1mg Take 1 U nivers (ATIVAN) 1 2-28 tablet by ity of mg tablet 00:00: mouth 2 [place] 00 (two) Medical times Branch daily as needed for Anxiety or Agitation. hydrOXYzine 2023-0 Yes [id number] 25mg Take 1 Univers (VISTARIL) 2-28 capsule by ity of 25 mg 00:00: mouth 3 [place] capsule 00 (three) Medical times Branch daily as needed for Anxiety. LORazepam 2023-0 Yes [id number] 1mg Take 1 U nivers (ATIVAN) 1 2-28 tablet by ity of mg tablet 00:00: mouth 2 [place] 00 (two) Medical times Branch daily as needed for Anxiety or Agitation. hydrOXYzine 2023-0 Yes [id number] 25mg Take 1 [facility] (VISTARIL) 2-28 capsule by ity of 25 mg 00:00: mouth 3 [place] capsule 00 (three) Medical times Branch daily as needed for Anxiety. LORazepam 2023-0 Yes [id number] 1mg Take 1 U nivers (ATIVAN) 1 2-28 tablet by ity of mg tablet 00:00: mouth 2 [place] 00 (two) Medical times Branch daily as needed for Anxiety or Agitation. hydrOXYzine 2023-0 Yes [id number] 25mg Take 1 [facility] (VISTARIL) 2-28 capsule by ity of 25 mg 00:00: mouth 3 [place] capsule 00 (three) Medical times Branch daily as needed for Anxiety. LORazepam 2023-0 Yes [id number] 1mg Take 1 U n[facility] (ATIVAN) 1 2-28 tablet by ity of mg tablet 00:00: mouth 2 [place] 00 (two) Medical times Branch daily as needed for Anxiety or Agitation. hydrOXYzine 2023-0 Yes [id number] 25mg Take 1 [facility] (VISTARIL) 2-28 capsule by ity of 25 mg 00:00: mouth 3 [place] capsule 00 (three) Medical times Branch daily as needed for Anxiety. LORazepam 2023-0 Yes [id number] 1mg Take 1 [facility] nivers (ATIVAN) 1 2-28 tablet by ity of mg tablet 00:00: mouth 2 [place] 00 (two) Medical times Branch daily as needed for Anxiety or Agitation. hydrOXYzine 2023-0 Yes [id number] 25mg Take 1 [facility] (VISTARIL) 2-28 capsule by ity of 25 mg 00:00: mouth 3 [place] capsule 00 (three) Medical times Branch daily as needed for Anxiety. LORazepam 2023-0 Yes [id number] 1mg Take 1 U nivers (ATIVAN) 1 2-28 tablet by ity of mg tablet 00:00: mouth 2 [place] 00 (two) Medical times Branch daily as needed for Anxiety or Agitation. hydrOXYzine 2023-0 Yes [id number] 25mg Take 1 [facility] (VISTARIL) 2-28 capsule by ity of 25 mg 00:00: mouth 3 [place] capsule 00 (three) Medical times Branch daily as needed for Anxiety. LORazepam 2023-0 Yes [id number] 1mg Take 1 [facility] n[facility] (ATIVAN) 1 2-28 tablet by ity of mg tablet 00:00: mouth 2 (two) Medical times Branch daily as needed for Anxiety or Agitation. hydrOXYzine 2023-0 Yes [id number] 25mg Take 1 [facility] (VISTARIL) 2-28 capsule by ity of 25 mg 00:00: mouth 3 [place] capsule 00 (three) Medical times Branch daily as needed for Anxiety. LORazepam 2023-0 Yes [id number] 1mg Take 1 [facility] nivers (ATIVAN) 1 2-28 tablet by ity of mg tablet 00:00: mouth 2 [place] 00 (two) Medical times Branch daily as needed for Anxiety or Agitation. hydrOXYzine 2023-0 Yes [id number] 25mg Take 1 [facility] (VISTARIL) 2-28 capsule by ity of 25 mg 00:00: mouth 3 [place] capsule 00 (three) Medical times Branch daily as needed for Anxiety. LORazepam 2023-0 Yes [id number] 1mg Take 1 [facility] nivers (ATIVAN) 1 2-28 tablet by ity of mg tablet 00:00: mouth 2 [place] 00 (two) Medical times Branch daily as needed for Anxiety or Agitation. hydrOXYzine 2023-0 Yes [id number] 25mg Take 1 [facility] (VISTARIL) 2-28 capsule by ity of 25 mg 00:00: mouth 3 [place] capsule 00 (three) Medical times Branch daily as needed for Anxiety. LORazepam 2023-0 Yes [id number] 1mg Take 1 [facility] nivers (ATIVAN) 1 2-28 tablet by ity of mg tablet 00:00: mouth 2 (two) Medical times Branch daily as needed for Anxiety or Agitation. hydrOXYzine 2023-0 Yes [id number] 25mg Take 1 [facility] (VISTARIL) 2-28 capsule by ity of 25 mg 00:00: mouth 3 [place] capsule 00 (three) Medical times Branch daily as needed for Anxiety. LORazepam 2023-0 Yes [id number] 1mg Take 1 [facility] n[facility] (ATIVAN) 1 2-28 tablet by ity of mg tablet 00:00: mouth 2 (two) Medical times Branch daily as needed for Anxiety or Agitation. hydrOXYzine 2023-0 Yes [id number] 25mg Take 1 [facility] (VISTARIL) 2-28 capsule by ity of 25 mg 00:00: mouth 3 [place] capsule 00 (three) Medical times Branch daily as needed for Anxiety. LORazepam 2023-0 Yes [id number] 1mg Take 1 [facility] nivers (ATIVAN) 1 2-28 tablet by ity of mg tablet 00:00: mouth 2 (two) Medical times Branch daily as needed for Anxiety or Agitation. hydrOXYzine 2023-0 Yes [id number] 25mg Take 1 [facility] (VISTARIL) 2-28 capsule by ity of 25 mg 00:00: mouth 3 [place] capsule 00 (three) Medical times Branch daily as needed for Anxiety. LORazepam 2023-0 Yes [id number] 1mg Take 1 U nivers (ATIVAN) 1 2-28 tablet by ity of mg tablet 00:00: mouth 2 [place] 00 (two) Medical times Branch daily as needed for Anxiety or Agitation. hydrOXYzine 2023-0 Yes [id number] 25mg Take 1 [facility] (VISTARIL) 2-28 capsule by ity of 25 mg 00:00: mouth 3 [place] capsule 00 (three) Medical times Branch daily as needed for Anxiety. LORazepam 2023-0 Yes [id number] 1mg Take 1 [facility] nivers (ATIVAN) 1 2-28 tablet by ity of mg tablet 00:00: mouth 2 [place] 00 (two) Medical times Branch daily as needed for Anxiety or Agitation. hydrOXYzine 2023-0 Yes [id number] 25mg Take 1 [facility] (VISTARIL) 2-28 capsule by ity of 25 mg 00:00: mouth 3 [place] capsule 00 (three) Medical times Branch daily as needed for Anxiety. LORazepam 2023-0 Yes [id number] 1mg Take 1 [facility] nivers (ATIVAN) 1 2-28 tablet by ity of mg tablet 00:00: mouth 2 [place] 00 (two) Medical times Branch daily as needed for Anxiety or Agitation. hydrOXYzine 2023-0 Yes [id number] 25mg Take 1 [facility] (VISTARIL) 2-28 capsule by ity of 25 mg 00:00: mouth 3 [place] capsule 00 (three) Medical times Branch daily as needed for Anxiety. LORazepam 2023-0 Yes [id number] 1mg Take 1 [facility] (ATIVAN) 1 2-28 tablet by ity of mg tablet 00:00: mouth 2 [place] 00 (two) Medical times Branch daily as needed for Anxiety or Agitation. hydrOXYzine 2023-0 Yes [id number] 25mg Take 1 [facility] (VISTARIL) 2-28 capsule by ity of 25 mg 00:00: mouth 3 [place] capsule 00 (three) Medical times Branch daily as needed for Anxiety. LORazepam 2023-0 Yes [id number] 1mg Take 1 [facility]ivers (ATIVAN) 1 2-28 tablet by ity of mg tablet 00:00: mouth 2 [place] 00 (two) Medical times Branch daily as needed for Anxiety or Agitation. hydrOXYzine 2023-0 Yes [id number] 25mg Take 1 [facility] (VISTARIL) 2-28 capsule by ity of 25 mg 00:00: mouth 3 [place] capsule 00 (three) Medical times Branch daily as needed for Anxiety. LORazepam 2023-0 Yes [id number] 1mg Take 1 [facility] n[facility] (ATIVAN) 1 2-28 tablet by ity of mg tablet 00:00: mouth 2 [place] 00 (two) Medical times Branch daily as needed for Anxiety or Agitation. hydrOXYzine 2023-0 Yes [id number] 25mg Take 1 [facility] (VISTARIL) 2-28 capsule by ity of 25 mg 00:00: mouth 3 [place] capsule 00 (three) Medical times Branch daily as needed for Anxiety. LORazepam 2022-0 Yes [id number] 1mg Take 1 [facility] (ATIVAN) 1 2-28 tablet by ity of mg tablet 00:00: mouth 2 [place] 00 (two) Medical times Branch daily as needed for Anxiety or Agitation. hydrOXYzine 2022-0 Yes [id number] 25mg Take 1 [facility] (VISTARIL) 2-28 capsule by ity of 25 mg 00:00: mouth 3 [place] capsule 00 (three) Medical times Branch daily as needed for Anxiety. iopamidol 2022- Yes [id number] 75mL 75 mL, [facility] (ISOVUE 10-13 Intravenou ity o f 370-500 mL) 09:30: 21:29 s, ONCE, 1 [place] injection 00 :00 dose, On Medica l 75 mL e 10/13/22 Branch at 0330, Routine dicyclomine 2022- Yes 20mg 20 mg, Uni vers (BENTYL) 10-13 Intramuscu ity of injection 09:15: 21:14 lar, ONCE, [place] 20 mg 00 :00 1 dose, On Medical 10/13/22 Branch at 0315, Routine famotidine 0 Yes TAKE 1 Unive rs 20 mg 1-25 TABLET BY ity of tablet 00:00: MOUTH IN [place] [id number] [facility] MORNING Branch AND IN THE EVENING FOR 5 DAYS famotidine 2022-0 Yes TAKE 1 Unive rs 20 mg 1-25 TABLET BY ity of tablet 00:00: MOUTH IN [place] [address] [facility] MORNING Branch AND IN THE EVENING FOR 5 DAYS famotidine 2022-0 Yes TAKE 1 Unive rs 20 mg 1-25 TABLET BY ity of tablet 00:00: MOUTH IN [place] [address] [facility] MORNING Branch AND IN THE EVENING FOR 5 DAYS famotidine 2022-0 Yes TAKE 1 Unive rs 20 mg 1-25 TABLET BY ity of tablet 00:00: MOUTH IN [place] [address] [facility] MORNING Branch AND IN THE EVENING FOR 5 DAYS famotidine 2022-0 Yes TAKE 1 Unive rs 20 mg 1-25 TABLET BY ity of tablet 00:00: MOUTH IN [place] 00 THE Medical MORNING Branch AND IN THE EVENING FOR 5 DAYS famotidine Yes TAKE 1 Unive rs 20 mg 1-25 TABLET BY ity of tablet 00:00: MOUTH IN [place] 00 THE MORNING Branch AND IN THE EVENING FOR 5 DAYS famotidine 2022- No 20mg 20 mg, Univ ers (PEPCID AC) 09-10 Oral, ity of tablet 20 00:30: 00:53 ONCE, 1 [place] mg 00 :[place] dose, On Medical 09/09/22 Branch at 1830, LUPE dexamethaso 2022- No 10mg 10 mg, Uni vers ne sod phos 09-10 Intramuscu i ty of PF 00:30: 00:53 lar, ONCE, [place] injection 00 :00 1 dose, On Medi shanice 10 mg 09/09/22 Branch at 1830, 1 mL predniSONE 2022- No [id number] 40mg Take 2 [facility] 20 mg 09-10 tablets by ity of tablet 00:00: 05:59 mouth in [place] 00 :00 the Branch for 5 days. famotidine 2022- No [id number] 20mg Take 1 [facility] (PEPCID) 20 09-09 tablet by it y of mg tablet 00:00: 05:59 mouth in [place] 00 :00 the Branch and 1 tablet in the evening. Do all this for 5 days. HYDROcodone 2021-09- No 1{tbl} 1 tablet, [facility] -acetaminop 10-20- Oral, ity of hen (NORCO) 00:00: 22:59 ONCE, 1 [place] 10-325 mg 00 :00 dose, On Medica l tablet 1 Tue Branch tablet 08/18/22 at 1800, Routine oseltamivir 2021-09- No [id number] 75mg Take 1 [facility] (TAMIFLU) 10-19-19 capsule by ity of 75 mg 00:00: 05:59 mouth in [place] capsule 00 :00 the Medical morning Branch and 1 capsule in the evening. Do all this for 5 days. oxyCODONE 5 2022-0 Yes 5mg Take 1 Univ ers mg 9-28 tablet by ity of immediate 00:00: mouth. Medical tablet Branch oxyCODONE 5 2021-0 Yes 5mg Take 1 Univ ers mg 9-28 tablet by ity of immediate 00:00: mouth. Medical tablet Branch oxyCODONE 5 2021-0 Yes 5mg Take 1 Univ ers mg 9-28 tablet by ity of immediate 00:00: mouth. Medical tablet Branch oxyCODONE 5 2021-0 Yes 5mg Take 1 Univ ers mg 9-28 tablet by ity of immediate 00:00: mouth. Medical tablet Branch oxyCODONE 5 2021-0 Yes 5mg Take 1 Univ ers mg 9-28 tablet by ity of immediate 00:00: mouth. Medical tablet Branch oxyCODONE 5 2021-0 Yes 5mg Take 1 Univ ers mg 9-28 tablet by ity of immediate 00:00: mouth. Medical tablet Branch naproxen 2021-0 Yes naproxen Unive rs 500 mg 9-16 500 mg ity of tablet 00:00: tablet Medical Branch naproxen 2021-0 Yes naproxen Unive rs 500 mg 9-16 500 mg ity of tablet 00:00: tablet Medical Branch naproxen 2-0 Yes naproxen Unive rs 500 mg 9-16 500 mg ity of tablet 00:00: tablet Medical Branch naproxen 2-0 Yes naproxen Unive rs 500 mg 9-16 500 mg ity of tablet 00:00: tablet Medical Branch naproxen 2-0 Yes naproxen Unive rs 500 mg 9-16 500 mg ity of tablet 00:00: tablet Medical Branch naproxen 2-0 Yes naproxen Unive rs 500 mg 9-16 500 mg ity of tablet 00:00: tablet Medical Branch prazosin 2 2021-0 Yes 2mg Take 1 Unive rs mg capsule 9-15 capsule by ity of 00:00: mouth. Medical Branch prazosin 2 2021-0 Yes 2mg Take 1 Unive rs mg capsule 9-15 capsule by ity of 00:00: mouth. Medical Branch prazosin 2 2021-0 Yes 2mg Take 1 Unive rs mg capsule 9-15 capsule by ity of 00:00: mouth. Medical Branch prazosin 2 2021-0 Yes 2mg Take 1 Unive rs mg capsule 9-15 capsule by ity of 00:00: mouth. Medical Branch prazosin 2 2021-0 Yes 2mg Take 1 Unive rs mg capsule 9-15 capsule by ity of 00:00: mouth. Medical Branch prazosin 2 2021-0 Yes 2mg Take 1 Unive rs mg capsule 9-15 capsule by ity of 00:00: mouth. Medical Branch naloxone 4 2021-0 Yes CALL 911. Un travis mg/actuatio 8-25 SPR ity of n nasal 00:00: CONTENTS [place] spray 00 OF ONE Medical SPRAYER Branch (0.1ML) INTO ONE NOSTRIL. REPEAT IN 2-3 MIN IF SYMPTOMS OF OPIOID EMERGENCY PERSIST, ALTERNATE NOSTRILS lidocaine 5 Yes lidocaine U nivers % (700 8-25 5 % ity of mg/patch) 00:00: topical [place] patch 00 patch Medical Branch naloxone 4 Yes CALL 911. Un travis mg/actuatio 8-25 SPR ity of n nasal 00:00: CONTENTS [place] spray 00 OF ONE Medical SPRAYER Branch (0.1ML) INTO ONE NOSTRIL. REPEAT IN 2-3 MIN IF SYMPTOMS OF OPIOID EMERGENCY PERSIST, ALTERNATE NOSTRILS lidocaine 5 2021-0 Yes lidocaine U nivers % (700 8-25 5 % ity of mg/patch) 00:00: topical [place] patch 00 patch Medical Branch naloxone 4 2021-0 Yes CALL 911. Un travis mg/actuatio 8-25 SPR ity of n nasal 00:00: CONTENTS [place] spray 00 OF ONE Medical SPRAYER Branch (0.1ML) INTO ONE NOSTRIL. REPEAT IN 2-3 MIN IF SYMPTOMS OF OPIOID EMERGENCY PERSIST, ALTERNATE NOSTRILS lidocaine 5 2021-0 Yes lidocaine U nivers % (700 8-25 5 % ity of mg/patch) 00:00: topical [place] patch 00 patch Medical Branch naloxone 4 2021-0 Yes CALL 911. Un travis mg/actuatio 8-25 SPR ity of n nasal 00:00: CONTENTS [place] spray 00 OF ONE Medical SPRAYER Branch (0.1ML) INTO ONE NOSTRIL. REPEAT IN 2-3 MIN IF SYMPTOMS OF OPIOID EMERGENCY PERSIST, ALTERNATE NOSTRILS lidocaine 5 2021-0 Yes lidocaine U nivers % (700 8-25 5 % ity of mg/patch) 00:00: topical [place] patch 00 patch Medical Branch naloxone 4 0 Yes CALL 911. Un travis mg/actuatio 8-25 SPR ity of n nasal 00:00: CONTENTS [place] spray 00 OF ONE Medical SPRAYER Branch (0.1ML) INTO ONE NOSTRIL. REPEAT IN 2-3 MIN IF SYMPTOMS OF OPIOID EMERGENCY PERSIST, ALTERNATE NOSTRILS lidocaine 5 2021-0 Yes lidocaine U nivers % (700 8-25 5 % ity of mg/patch) 00:00: topical [place] patch 00 patch Medical Branch naloxone 4 Yes CALL 911. Un trvais mg/actuatio 8-25 SPR ity of n nasal 00:00: CONTENTS [place] spray 00 OF ONE Medical SPRAYER Branch (0.1ML) INTO ONE NOSTRIL. REPEAT IN 2-3 MIN IF SYMPTOMS OF OPIOID EMERGENCY PERSIST, ALTERNATE NOSTRILS lidocaine 5 2021-0 Yes lidocaine U nivers % (700 8-25 5 % ity of mg/patch) 00:00: topical [place] patch 00 patch Medical Branch naloxegoL 0 Yes [facility] (MOVANTIK) 8-23 ity of 12.5 mg Tab 00:00: Medical Branch naloxegoL 2021-0 Yes [facility] (MOVANTIK) 8-23 ity of 12.5 mg Tab 00:00: Medical Branch naloxegoL 2021-0 Yes [facility] (MOVANTIK) 8-23 ity of 12.5 mg Tab 00:00: Medical Branch naloxegoL 2021-0 Yes [facility] (MOVANTIK) 8-23 ity of 12.5 mg Tab 00:00: Medical Branch naloxegoL 2021-0 Yes [facility] (MOVANTIK) 8-23 ity of 12.5 mg Tab 00:00: Medical Branch naloxegoL 2021-0 Yes [facility] (MOVANTIK) 8-23 ity of 12.5 mg Tab 00:00: Medical Branch venlafaxine 2021-0 Yes Univer s XR 37.5 mg 8-17 ity of 24 hr 00:00: [place] capsule 00 Medical Branch venlafaxine 2021-0 Yes Univer s XR 37.5 mg 8-17 ity of 24 hr 00:00: [place] capsule 00 Medical Branch venlafaxine 2021-0 Yes Univer s XR 37.5 mg 8-17 ity of 24 hr 00:00: [place] capsule 00 Medical Branch venlafaxine 2021-0 Yes Univer s XR 37.5 mg 8-17 ity of 24 hr 00:00: [place] capsule 00 Medical Branch venlafaxine 2021-0 Yes Univer s XR 37.5 mg 8-17 ity of 24 hr 00:00: [place] capsule 00 Medical Branch venlafaxine 2021-0 Yes Univer s XR 37.5 mg 8-17 ity of 24 hr 00:00: [place] capsule 00 Medical Branch HYDROcodone 2021-0 Yes TAKE 1 Univ ers -acetaminop 7-06 TABLET BY ity of hen 10-325 00:00: MOUTH [place] mg tablet 00 EVERY 6 Medical HOURS FOR Branch UP TO 7 DAYS NEEDED FOR PAIN diazePAM 10 2021-0 Yes Univer s mg tablet 7-06 ity of 00:00: [place] 00 Medical Branch HYDROcodone 2021-0 Yes TAKE 1 Univ ers -acetaminop 7-06 TABLET BY ity of hen 10-325 00:00: MOUTH [place] mg tablet 00 EVERY 6 Medical HOURS FOR Branch UP TO 7 DAYS NEEDED FOR PAIN diazePAM 10 2021-0 Yes Univer s mg tablet 7-06 ity of 00:00: [place] 00 Medical Branch HYDROcodone 2021-0 Yes TAKE 1 Univ ers -acetaminop 7-06 TABLET BY ity of hen 10-325 00:00: MOUTH [place] mg tablet 00 EVERY 6 Medical HOURS FOR Branch UP TO 7 DAYS NEEDED FOR PAIN diazePAM 10 2021-0 Yes Univer s mg tablet 7-06 ity of 00:00: [place] 00 Medical Branch HYDROcodone 2021-0 Yes TAKE 1 Univ ers -acetaminop 7-06 TABLET BY ity of hen 10-325 00:00: MOUTH [place] mg tablet 00 EVERY 6 Medical HOURS FOR Branch UP TO 7 DAYS NEEDED FOR PAIN diazePAM 10 2021-0 Yes Univer s mg tablet 7-06 ity of 00:00: [place] 00 Medical Branch HYDROcodone 2021-0 Yes TAKE 1 Univ ers -acetaminop 7-06 TABLET BY ity of hen 10-325 00:00: MOUTH [place] mg tablet 00 EVERY 6 Medical HOURS FOR Branch UP TO 7 DAYS NEEDED FOR PAIN diazePAM 10 0 Yes Univer s mg tablet 7-06 ity of 00:00: [place] Medical Branch HYDROcodone 0 Yes TAKE 1 Univ ers -acetaminop 7-06 TABLET BY ity of hen 10-325 00:00: MOUTH [place] mg tablet 00 EVERY 6 Medical HOURS FOR Branch UP TO 7 DAYS NEEDED FOR PAIN diazePAM 10 0 Yes Univer s mg tablet 7-06 ity of 00:00: [place] Medical Branch HYDROcodone Yes TAKE 1 Univ ers -acetaminop 7-06 TABLET BY ity of hen 10-325 00:00: MOUTH [place] mg tablet 00 EVERY 6 Medical HOURS FOR Branch UP TO 7 DAYS NEEDED FOR PAIN diazePAM 10 Yes Univer s mg tablet 7-06 ity of 00:00: Medical Branch HYDROcodone 0 Yes TAKE 1 Univ ers -acetaminop 7-06 TABLET BY ity of hen 10-325 00:00: MOUTH [place] mg tablet 00 EVERY 6 Medical HOURS FOR Branch UP TO 7 DAYS NEEDED FOR PAIN diazePAM 10 Yes Univer s mg tablet 7-06 ity of 00:00: [place] 00 Medical Branch HYDROcodone 2021-0 Yes TAKE 1 Univ ers -acetaminop 7-06 TABLET BY ity of hen 10-325 00:00: MOUTH [place] mg tablet 00 EVERY 6 Medical HOURS FOR Branch UP TO 7 DAYS NEEDED FOR PAIN diazePAM 10 0 Yes Univer s mg tablet 7-06 ity of 00:00: [place] 00 Medical Branch HYDROcodone 2021-0 Yes TAKE 1 Univ ers -acetaminop 7-06 TABLET BY ity of hen 10-325 00:00: MOUTH [place] mg tablet 00 EVERY 6 Medical HOURS FOR Branch UP TO 7 DAYS NEEDED FOR PAIN diazePAM 10 0 Yes Univer s mg tablet 7-06 ity of 00:00: [place] 00 Medical Branch HYDROcodone 2021-0 Yes TAKE 1 Univ ers -acetaminop 7-06 TABLET BY ity of hen 10-325 00:00: MOUTH [place] mg tablet 00 EVERY 6 Medical HOURS FOR Branch UP TO 7 DAYS NEEDED FOR PAIN diazePAM 10 2022-0 Yes Univer s mg tablet 7-06 ity of 00:00: [place] 00 Medical Branch HYDROcodone 2021-0 Yes TAKE 1 Univ ers -acetaminop 7-06 TABLET BY ity of hen 10-325 00:00: MOUTH [place] mg tablet 00 EVERY 6 Medical HOURS FOR Branch UP TO 7 DAYS NEEDED FOR PAIN diazePAM 10 2021-0 Yes Univer s mg tablet 7-06 ity of 00:00: [place] Medical Branch HYDROcodone 2021-0 Yes TAKE 1 Univ ers -acetaminop 7-06 TABLET BY ity of hen 10-325 00:00: MOUTH [place] mg tablet 00 EVERY 6 Medical HOURS FOR Branch UP TO 7 DAYS NEEDED FOR PAIN diazePAM 10 0 Yes Univer s mg tablet 7-06 ity of 00:00: [place] Medical Branch HYDROcodone 0 Yes TAKE 1 Univ ers -acetaminop 7-06 TABLET BY ity of hen 10-325 00:00: MOUTH [place] mg tablet 00 EVERY 6 Medical HOURS FOR Branch UP TO 7 DAYS NEEDED FOR PAIN diazePAM 10 0 Yes Univer s mg tablet 7-06 ity of 00:00: [place] 00 Medical Branch HYDROcodone 0 Yes TAKE 1 Univ ers -acetaminop 7-06 TABLET BY ity of hen 10-325 00:00: MOUTH [place] mg tablet 00 EVERY 6 Medical HOURS FOR Branch UP TO 7 DAYS NEEDED FOR PAIN diazePAM 10 0 Yes Univer s mg tablet 7-06 ity of 00:00: [place] Medical Branch HYDROcodone 2021-0 Yes TAKE 1 Univ ers -acetaminop 7-06 TABLET BY ity of hen 10-325 00:00: MOUTH [place] mg tablet 00 EVERY 6 Medical HOURS FOR Branch UP TO 7 DAYS NEEDED FOR PAIN diazePAM 10 0 Yes Univer s mg tablet 7-06 ity of 00:00: [place] 00 Medical Branch HYDROcodone 2021-0 Yes TAKE 1 Univ ers -acetaminop 7-06 TABLET BY ity of hen 10-325 00:00: MOUTH [place] mg tablet 00 EVERY 6 Medical HOURS FOR Branch UP TO 7 DAYS NEEDED FOR PAIN diazePAM 10 2021-0 Yes Univer s mg tablet 7-06 ity of 00:00: [place] 00 Medical Branch HYDROcodone 2021-0 Yes TAKE 1 Univ ers -acetaminop 7-06 TABLET BY ity of hen 10-325 00:00: MOUTH [place] mg tablet 00 EVERY 6 Medical HOURS FOR Branch UP TO 7 DAYS NEEDED FOR PAIN diazePAM 10 2021-0 Yes Univer s mg tablet 7-06 ity of 00:00: [place] 00 Medical Branch HYDROcodone 2021-0 Yes TAKE 1 Univ ers -acetaminop 7-06 TABLET BY ity of hen 10-325 00:00: MOUTH [place] mg tablet 00 EVERY 6 Medical HOURS FOR Branch UP TO 7 DAYS NEEDED FOR PAIN diazePAM 10 2021-0 Yes Univer s mg tablet 7-06 ity of 00:00: [place] 00 Medical Branch HYDROcodone 2021-0 Yes TAKE 1 Univ ers -acetaminop 7-06 TABLET BY ity of hen 10-325 00:00: MOUTH [place] mg tablet 00 EVERY 6 Medical HOURS FOR Branch UP TO 7 DAYS NEEDED FOR PAIN diazePAM 10 2021-0 Yes Univer s mg tablet 7-06 ity of 00:00: [place] 00 Medical Branch HYDROcodone 2021-0 Yes TAKE 1 Univ ers -acetaminop 7-06 TABLET BY ity of hen 10-325 00:00: MOUTH [place] mg tablet 00 EVERY 6 Medical HOURS FOR Branch UP TO 7 DAYS NEEDED FOR PAIN diazePAM 10 2021-0 Yes Univer s mg tablet 7-06 ity of 00:00: [place] 00 Medical Branch HYDROcodone 2021-0 2021- No 1{tbl} Q6H Take 1 Methodi -acetaminop 5-17 05-[address] [facility] One-Song) 13:50: 00:00 mouth [facility] 10-325 mg 15 :00 every 6 l per tablet (six) hours as needed .acute pain. prn HYDROcodone 0 2021- No 1{tbl} Q6H Take 1 Methodi -acetaminop 5-17 05-[address] [facility] (Biotix) 13:50: 00:00 mouth [facility] 10-325 mg 15 :00 every 6 l per tablet (six) hours as needed .acute pain. prn HYDROcodone 2021-0 2021- No 1{tbl} Q6H Take 1 Methodi -acetaminop 5-17 05-[address] [facility] (Biotix) 13:50: 00:00 mouth [facility] 10-325 mg 15 :00 every 6 l per tablet (six) hours as needed .acute pain. prn HYDROcodone 2021-0 2021- No [id number] 1{tbl} Q6H Take 1 Methodi -acetaminop 5-17 05-[address] [facility] (Biotix) 13:50: 00:00 mouth [facility] 10-325 mg 15 :00 every 6 l per tablet (six) hours as needed .acute pain. prn HYDROcodone 2021-0 2021- No [id number] 1{tbl} Q6H Take 1 Methodi -acetaminop 5-17 05-[address] [facility] (Biotix) 13:50: 00:00 mouth [facility] 10-325 mg 15 :00 every 6 l per tablet (six) hours as needed .acute pain. prn tiZANidine 2021-0 2022- No 4mg Q8H Take 4 mg M ethodi (ZANAFLEX) 5-17 05-[address] 4 MG tablet 13:37: 00:00 every 8 Ho spita 02 :00 (eight) l hours as needed for muscle spasms. tiZANidine 2021-0 2022- No 4mg Q8H Take 4 mg M ethodi (ZANAFLEX) 5-17 05-[address] 4 MG tablet 13:37: 00:00 every 8 Ho spita 02 :00 (eight) l hours as needed for muscle spasms. tiZANidine 2021-0 2022- No 4mg Q8H Take 4 mg M ethodi (ZANAFLEX) 5-17 05-[address] 4 MG tablet 13:37: 00:00 every 8 Ho spita 02 :00 (eight) l hours as needed for muscle spasms. tiZANidine 2-0 2022- No 4mg Q8H Take 4 mg M ethodi (ZANAFLEX) 5-17 05-[address] 4 MG tablet 13:37: 00:00 every 8 Ho spita 02 :00 (eight) l hours as needed for muscle spasms. tiZANidine 2-0 2022- No 4mg Q8H Take 4 mg [...] [place] injection 03 every 7 l days. adalimumab [...] hours as needed. cyclobenzap 2022-0 Yes 10mg [id number] Take 10 mg Methodi rine 5-17 [id number] (FLEXERIL) 13:09: 3D [...] hours as needed. cyclobenzap 2022-0 Yes 10mg Q.[id number] Take 10 mg Methodi rine 5-17 [id number] [facility] [address] (FLEXERIL) 13:09: 3D [...] hours as needed. cyclobenzap 2022-0 Yes 10mg Q.[id number] Take 10 mg Methodi rine 5-17 [id number] [facility] [address] (FLEXERIL) 13:09: 3D [...] hours as needed. cyclobenzap 2022-0 Yes 10mg Q.[id number] Take 10 mg Methodi rine 5-17 [id number] [address] [facility] [address] (FLEXERIL) 13:09: 3D (three) [facility] 10 mg 39 times a l tablet day as needed for muscle spasms. cyclobenzap 2022-0 Yes 10mg Q.[id number] Take 10 mg Methodi rine 5-17 [id number] [address] [facility] [address] (FLEXERIL) 13:09: 3D [...] (twelve) hours as needed. HYDROcodone 2021- No [id number] 1{tbl} Q6H Take 1 Methodi -acetaminop 5-17 06-[address] [facility] (Biotix) 00:00: 04:59 mouth [facility] 10-325 mg 00 :00 every 6 l per tablet (six) hours as needed for severe pain for up to 30 days .chronic pain. prn Max Daily Amount: 4 tablets HYDROcodone 2021- No [id number] 1{tbl} Q6H Take 1 [facility]i -acetaminop 5-17 06-[address] [facility] (Biotix) 00:00: 04:59 mouth [facility] 10-325 mg 00 :00 every 6 l per tablet (six) hours as needed for severe pain for up to 30 days .chronic pain. prn Max Daily Amount: 4 tablets HYDROcodone 2021-2021- No [id number] 1{tbl} Q6H Take 1 [facility]i -acetaminop 5-17 06-[address] [facility] (Biotix) 00:00: 04:59 mouth [facility] 10-325 mg 00 :00 every 6 l per tablet (six) hours as needed for severe pain for up to 30 days .chronic pain. prn Max Daily Amount: 4 tablets HYDROcodone 2021-0 2021- No [id number] 1{tbl} Q6H Take 1 [facility]i -acetaminop 5-17 06-[address] [facility] (Biotix) 00:00: 04:59 mouth [facility] 10-325 mg 00 :00 every 6 l per tablet (six) hours as needed for severe pain for up to 30 days .chronic pain. prn Max Daily Amount: 4 tablets HYDROcodone 2021-0 2021- [place] [id number] 1{tbl} Q6H Take 1 [facility]i -acetaminop 5-17 06-[address] [facility] (Biotix) 00:00: 04:59 mouth [facility] 10-325 mg [...] Take 1 Method i (VALIUM) 10 10-01 03-28 tablet (10 s t MG tablet 00:00: 04:59 mg total) Ho spita 00 :00 by mouth l every 12 (twelve) hours as needed for anxiety for up to 60 days. diazePAM 2020-09- No [id number] 10mg Q12H Take 1 [facility] (VALIUM) 10 10-15 tablet (10 s t MG tablet 00:00: 05:59 mg total) Ho spita 00 :00 by mouth l every 12 (twelve) hours as needed for anxiety for up to 30 days. diazePAM 2020-09- No [id number] 10mg Q12H Take 1 [facility] (VALIUM) 10 10-15 tablet (10 s t MG tablet 00:00: 05:59 mg total) Ho spita 00 :00 by mouth l every 12 (twelve) hours as needed for anxiety for up to 30 days. diazePAM 2020-09- No [id number] 10mg Q12H Take 1 [facility] (VALIUM) 10 10-15 tablet (10 s t MG tablet 00:00: 05:59 mg total) Ho spita 00 :00 by mouth l every 12 (twelve) hours as needed for anxiety for up to 30 days. diazePAM 2020-09- No [id number] 10mg Q12H Take 1 [facility] (VALIUM) [...] anxiety for up to 30 days. diazePAM 2020-09 No 10mg Q12H Take 1 Method i [...] anxiety for up to 30 days. diazePAM 2020-09 No 10mg Q12H Take 10 mg [facility] (VALIUM) 10 10-[address] MG tablet 08:23: 00:00 every 12 [facility] 05 :00 (twelve) l hours as needed. diazePAM 2020-09 No 10mg Q12H Take 10 mg [facility] (VALIUM) 10 10-[address] MG tablet 08:23: 00:00 every 12 Hos teddy 05 :00 (twelve) l hours as needed. diazePAM 2020-09 No 10mg Q12H Take 10 mg [facility] (VALIUM) 10 10-[address] MG tablet 08:23: 00:00 every 12 Hos [facility] 05 :00 (twelve) l hours as needed. diazePAM 2020-09 No 10mg Q12H Take 10 mg [facility] (VALIUM) 10 10-14- by mouth [facility] MG tablet 08:23: 00:00 every 12 [facility] ted[facility] 05 :00 (twelve) l hours as needed. diazePAM 2020-09- No 10mg Q12H Take 1 Method i (VALIUM) 10 10-14- tablet (10 s t MG tablet 00:00: 00:00 mg total) Ho spita 00 :00 by mouth l every 12 (twelve) hours as needed for anxiety for up to 30 days. diazePAM 2020-09 No 10mg Q12H Take 1 Method i [...] Take 10 mg [facility] (VALIUM) 10 09-[address] MG tablet 08:53: 00:00 every 8 [facility] 41 :00 (eight) l hours as needed for anxiety. diazePAM 2020-09- No [id number] 10mg Q12H Take 1 [facility] (VALIUM) 10 09-09 12-05 tablet (10 s t MG tablet 00:00: 05:59 mg total) Ho spita 00 :00 by mouth l every 12 (twelve) hours as needed for anxiety for up to 30 days. diazePAM 2020-09- No [id number] 10mg Q12H Take 1 [facility] (VALIUM) 10 09-09 12-05 tablet (10 s t MG tablet 00:00: 05:59 mg total) Ho spita 00 :00 by mouth l every 12 (twelve) hours as needed for anxiety for up to 30 days. diazePAM 2020-09- No [id number] 10mg Q12H Take 1 [facility] (VALIUM) 10 09-09 12-05 tablet (10 s t MG tablet 00:00: 05:59 mg total) Ho spita 00 :00 by mouth l every 12 (twelve) hours as needed for anxiety for up to 30 days. diazePAM 2020-09- No [id number] 10mg Q12H Take 1 [facility] (VALIUM) 10 - 12-05 tablet (10 s t MG tablet 00:00: 05:59 mg total) Ho spita 00 :00 by mouth l every 12 (twelve) hours as needed for anxiety for up to 30 days. azithromyci 2020-09- No [id number] 250mg QD Take 1 Methodi n 008 07-[address] (Zithromax 00:00: 00:00 (250 mg Hos [facility]) 250 00 :00 total) by l MG tablet mouth daily. Take 2 tablets the first day, then 1 tablet daily for 4 days. pantoprazol 2020-0 Yes [id number] 40mg Take 1 [facility] e 4-18 tablet by ity of (PROTONIX) 00:00: mouth [place] 40 mg EC 00 daily. Medical tablet Branch dicyclomine 0 Yes [id number] 20mg Take 1 [facility] 20 mg 4-18 tablet by ity of tablet 00:00: mouth [place] 00 every 6 Medical (six) Branch hours as needed for Abdominal pain. ondansetron 0 Yes [id number] 4mg Take 1 [facility] (ZOFRAN) 4 4-18 tablet by ity of mg tablet 00:00: mouth [place] 00 every 8 Medical (eight) Branch hours as needed for Nausea and Vomiting (N/V). pantoprazol 0 Yes [id number] 40mg Take 1 [facility] e 4-18 tablet by ity of (PROTONIX) 00:00: mouth [place] 40 mg EC 00 daily. Medical tablet Branch dicyclomine 0 Yes [id number] 20mg Take 1 [facility] 20 mg 4-18 tablet by ity of tablet 00:00: mouth [place] 00 every 6 Medical (six) Branch hours as needed for Abdominal pain. ondansetron 0 Yes [id number] 4mg Take 1 [facility] (ZOFRAN) 4 4-18 tablet by ity of mg tablet 00:00: mouth [place] 00 every 8 Medical (eight) Branch hours as needed for Nausea and Vomiting (N/V). pantoprazol 0 Yes [id number] 40mg Take 1 [facility] e 4-18 tablet by ity of (PROTONIX) 00:00: mouth [place] 40 mg EC 00 daily. Medical tablet Branch dicyclomine 0 Yes [id number] 20mg Take 1 [facility] 20 mg 4-18 tablet by ity of tablet 00:00: mouth [place] 00 every 6 Medical (six) Branch hours as needed for Abdominal pain. ondansetron 2020-0 Yes [id number] 4mg Take 1 [facility] (ZOFRAN) 4 4-18 tablet by ity of mg tablet 00:00: mouth [place] 00 every 8 Medical (eight) Branch hours as needed for Nausea and Vomiting (N/V). pantoprazol 2020-0 Yes [id number] 40mg Take 1 [facility] e 4-18 tablet by ity of (PROTONIX) 00:00: mouth [place] 40 mg EC 00 daily. Medical tablet Branch dicyclomine 2020-0 Yes [id number] 20mg Take 1 [facility] 20 mg 4-18 tablet by ity of tablet 00:00: mouth [place] 00 every 6 Medical (six) Branch hours as needed for Abdominal pain. ondansetron 2020-0 Yes [id number] 4mg Take 1 [facility] (ZOFRAN) 4 4-18 tablet by ity of mg tablet 00:00: mouth [place] 00 every 8 Medical (eight) Branch hours as needed for Nausea and Vomiting (N/V). pantoprazol 2020-0 Yes [id number] 40mg Take 1 [facility] e 4-18 tablet by ity of (PROTONIX) 00:00: mouth [place] 40 mg EC 00 daily. Medical tablet Branch dicyclomine 2020-0 Yes [id number] 20mg Take 1 [facility] 20 mg 4-18 tablet by ity of tablet 00:00: mouth [place] 00 every 6 Medical (six) Branch hours as needed for Abdominal pain. ondansetron 2020-0 Yes [id number] 4mg Take 1 [facility] (ZOFRAN) 4 4-18 tablet by ity of mg tablet 00:00: mouth [place] 00 every 8 Medical (eight) Branch hours as needed for Nausea and Vomiting (N/V). pantoprazol 2020-0 Yes [id number] 40mg Take 1 [facility] e 4-18 tablet by ity of (PROTONIX) 00:00: mouth [place] 40 mg EC 00 daily. Medical tablet Branch dicyclomine 2020-0 Yes [id number] 20mg Take 1 [facility] 20 mg 4-18 tablet by ity of tablet 00:00: mouth [place] 00 every 6 Medical (six) Branch hours as needed for Abdominal pain. ondansetron 2020-0 Yes [id number] 4mg Take 1 [facility] (ZOFRAN) 4 4-18 tablet by ity of mg tablet 00:00: mouth [place] 00 every 8 Medical (eight) Branch hours as needed for Nausea and Vomiting (N/V). pantoprazol 2020-0 Yes [id number] 40mg Take 1 [facility] 4-[facility] tablet by [facility] (PROTONIX) 00:00: mouth [place] 40 mg EC 00 daily. Medical tablet Branch dicyclomine 2020-0 Yes [id number] 20mg Take 1 [facility] 20 mg 4-18 tablet by [facility] tablet 00:00: mouth [place] 00 every 6 Medical (six) Branch hours as needed for Abdominal pain. ondansetron 2020-0 Yes [id number] 4mg Take 1 [facility] (ZOFRAN) 4 4-18 tablet by [facility] of mg tablet 00:00: mouth [place] 00 every 8 Medical (eight) Branch hours as needed for Nausea and Vomiting (N/V). pantoprazol 2020-0 Yes [id number] 40mg Take 1 [facility] 4-18 tablet by [facility] of (PROTONIX) 00:00: mouth [place] 40 mg EC 00 daily. Medical tablet Branch dicyclomine 2020-0 Yes [id number] 20mg Take 1 [facility] 20 mg 4-18 tablet by [facility] of tablet 00:00: mouth [place] 00 every 6 Medical (six) Branch hours as needed for Abdominal pain. ondansetron 2020-0 Yes [id number] 4mg Take 1 [facility] (ZOFRAN) 4 4-18 tablet by [facility] of mg tablet 00:00: mouth [place] 00 every 8 Medical (eight) Branch hours as needed for Nausea and Vomiting (N/V). pantoprazol 2020-0 Yes [id number] 40mg Take 1 [facility] e 4-18 tablet by [facility] of (PROTONIX) 00:00: mouth [place] 40 mg EC 00 daily. Medical tablet Branch dicyclomine 2020-0 Yes [id number] 20mg Take 1 [facility] 20 mg 4-18 tablet by [facility] of tablet 00:00: mouth [place] 00 every 6 Medical (six) Branch hours as needed for Abdominal pain. ondansetron 2020-0 Yes [id number] 4mg Take 1 [facility] (ZOFRAN) 4 4-18 tablet by [facility] of mg tablet 00:00: mouth [place] 00 every 8 Medical (eight) Branch hours as needed for Nausea and Vomiting (N/V). pantoprazol 2020-0 Yes [id number] 40mg Take 1 [facility] e 4-18 tablet by [facility] of (PROTONIX) 00:00: mouth [place] 40 mg EC 00 daily. Medical tablet Branch dicyclomine 2020-0 Yes [id number] 20mg Take 1 [facility] 20 mg 4-18 tablet by [facility] of tablet 00:00: mouth [place] 00 every 6 Medical (six) Branch hours as needed for Abdominal pain. ondansetron 2020-0 Yes [id number] 4mg Take 1 [facility] (ZOFRAN) 4 4-18 tablet by [facility] of mg tablet 00:00: mouth [place] 00 every 8 Medical (eight) Branch hours as needed for Nausea and Vomiting (N/V). pantoprazol 2020-0 Yes [id number] 40mg Take 1 [facility] e 4-18 tablet by [facility] of (PROTONIX) 00:00: mouth [place] 40 mg EC 00 daily. Medical tablet Branch dicyclomine 2020-0 Yes [id number] 20mg Take 1 [facility] 20 mg 4-18 tablet by [facility] of tablet 00:00: mouth [place] 00 every 6 Medical (six) Branch hours as needed for Abdominal pain. ondansetron 2020-0 Yes [id number] 4mg Take 1 [facility] (ZOFRAN) 4 4-18 tablet by [facility] of mg tablet 00:00: mouth [place] 00 every 8 Medical (eight) Branch hours as needed for Nausea and Vomiting (N/V). pantoprazol 2020-0 Yes [id number] 40mg Take 1 [facility] e 4-18 tablet by [facility] of (PROTONIX) 00:00: mouth [place] 40 mg EC 00 daily. Medical tablet Branch dicyclomine 2020-0 Yes [id number] 20mg Take 1 [facility] 20 mg 4-18 tablet by [facility] of tablet 00:00: mouth [place] 00 every 6 Medical (six) Branch hours as needed for Abdominal pain. ondansetron 2020-0 Yes [id number] 4mg Take 1 [facility] (ZOFRAN) 4 4-18 tablet by [facility] of mg tablet 00:00: mouth [place] 00 every 8 Medical (eight) Branch hours as needed for Nausea and Vomiting (N/V). pantoprazol 2020-0 Yes [id number] 40mg Take 1 [facility] e 4-18 tablet by [facility] of (PROTONIX) 00:00: mouth [place] 40 mg EC 00 daily. Medical tablet Branch dicyclomine 2020-0 Yes [id number] 20mg Take 1 [facility] 20 mg 4-18 tablet by [facility] of tablet 00:00: mouth [place] 00 every 6 Medical (six) Branch hours as needed for Abdominal pain. ondansetron 2020-0 Yes [id number] 4mg Take 1 [facility] (ZOFRAN) 4 4-18 tablet by [facility] of mg tablet 00:00: mouth [place] 00 every 8 Medical (eight) Branch hours as needed for Nausea and Vomiting (N/V). pantoprazol 2020-0 Yes [id number] 40mg Take 1 [facility] e 4-18 tablet by [facility] of (PROTONIX) 00:00: mouth [place] 40 mg EC 00 daily. Medical tablet Branch dicyclomine 2020-0 Yes [id number] 20mg Take 1 [facility] 20 mg 4-18 tablet by [facility] of tablet 00:00: mouth [place] 00 every 6 Medical (six) Branch hours as needed for Abdominal pain. ondansetron 2020-0 Yes [id number] 4mg Take 1 [facility] (ZOFRAN) 4 4-18 tablet by [facility] of mg tablet 00:00: mouth [place] 00 every 8 Medical (eight) Branch hours as needed for Nausea and Vomiting (N/V). pantoprazol 2020-0 Yes [id number] 40mg Take 1 [facility] e 4-18 tablet by [facility] of (PROTONIX) 00:00: mouth [place] 40 mg EC 00 daily. Medical tablet Branch dicyclomine 2020-0 Yes [id number] 20mg Take 1 [facility] 20 mg 4-18 tablet by [facility] of tablet 00:00: mouth [place] 00 every 6 Medical (six) Branch hours as needed for Abdominal pain. ondansetron 2020-0 Yes [id number] 4mg Take 1 [facility] (ZOFRAN) 4 4-18 tablet by [facility] of mg tablet 00:00: mouth [place] 00 every 8 Medical (eight) Branch hours as needed for Nausea and Vomiting (N/V). pantoprazol 1-0 Yes [id number] 40mg Take 1 [facility] e 4-18 tablet by [facility] of (PROTONIX) 00:00: mouth [place] 40 mg EC 00 daily. Medical tablet Branch dicyclomine 2020-0 Yes [id number] 20mg Take 1 [facility] 20 mg 4-18 tablet by [facility] of tablet 00:00: mouth [place] 00 every 6 Medical (six) Branch hours as needed for Abdominal pain. ondansetron 2020-0 Yes [id number] 4mg Take 1 [facility] (ZOFRAN) 4 4-18 tablet by [facility] of mg tablet 00:00: mouth [place] 00 every 8 Medical (eight) Branch hours as needed for Nausea and Vomiting (N/V). pantoprazol 2020-0 Yes [id number] 40mg Take 1 [facility] e 4-18 tablet by [facility] of (PROTONIX) 00:00: mouth [place] 40 mg EC 00 daily. Medical tablet Branch dicyclomine 2020-0 Yes [id number] 20mg Take 1 [facility] 20 mg 4-18 tablet by [facility] of tablet 00:00: mouth [place] 00 every 6 Medical (six) Branch hours as needed for Abdominal pain. ondansetron 2020-0 Yes [id number] 4mg Take 1 [facility] (ZOFRAN) 4 4-18 tablet by [facility] of mg tablet 00:00: mouth [place] 00 every 8 Medical (eight) Branch hours as needed for Nausea and Vomiting (N/V). pantoprazol 2020-0 Yes [id number] 40mg Take 1 [facility] e 4-18 tablet by [facility] of (PROTONIX) 00:00: mouth [place] 40 mg EC 00 daily. Medical tablet Branch dicyclomine 2020-0 Yes [id number] 20mg Take 1 [facility] 20 mg 4-18 tablet by [facility] of tablet 00:00: mouth [place] 00 every 6 Medical (six) Branch hours as needed for Abdominal pain. ondansetron 2020-0 Yes [id number] 4mg Take 1 [facility] (ZOFRAN) 4 4-18 tablet by [facility] of mg tablet 00:00: mouth [place] 00 every 8 Medical (eight) Branch hours as needed for Nausea and Vomiting (N/V). pantoprazol 2020-0 Yes [id number] 40mg Take 1 [facility] e 4-18 tablet by [facility] of (PROTONIX) 00:00: mouth [place] 40 mg EC 00 daily. Medical tablet Branch dicyclomine 2020-0 Yes [id number] 20mg Take 1 [facility] 20 mg 4-18 tablet by [facility] of tablet 00:00: mouth [place] 00 every 6 Medical (six) Branch hours as needed for Abdominal pain. ondansetron 2020-0 Yes [id number] 4mg Take 1 [facility] (ZOFRAN) 4 4-18 tablet by [facility] of mg tablet 00:00: mouth [place] 00 every 8 Medical (eight) Branch hours as needed for Nausea and Vomiting (N/V). pantoprazol 2020-0 Yes [id number] 40mg Take 1 [facility] e 4-18 tablet by [facility] of (PROTONIX) 00:00: mouth [place] 40 mg EC 00 daily. Medical tablet Branch dicyclomine 2020-0 Yes [id number] 20mg Take 1 [facility] 20 mg 4-18 tablet by [facility] of tablet 00:00: mouth [place] 00 every 6 Medical (six) Branch hours as needed for Abdominal pain. ondansetron 2020-0 Yes [id number] 4mg Take 1 [facility] (ZOFRAN) 4 4-18 tablet by [facility] of mg tablet 00:00: mouth [place] 00 every 8 Medical (eight) Branch hours as needed for Nausea and Vomiting (N/V). pantoprazol 2020-0 Yes [id number] 40mg Take 1 [facility] e 4-18 tablet by [facility] of (PROTONIX) 00:00: mouth [place] 40 mg EC 00 daily. Medical tablet Branch dicyclomine 2020-0 Yes [id number] 20mg Take 1 [facility] 20 mg 4-18 tablet by [facility] of tablet 00:00: mouth [place] 00 every 6 Medical (six) Branch hours as needed for Abdominal pain. ondansetron 2020-0 Yes [id number] 4mg Take 1 [facility] (ZOFRAN) 4 4-18 tablet by [facility] of mg tablet 00:00: mouth [place] 00 every 8 Medical (eight) Branch hours as needed for Nausea and Vomiting (N/V). pantoprazol 2020-0 Yes [id number] 40mg Take 1 [facility] e 4-18 tablet by [facility] of (PROTONIX) 00:00: mouth [place] 40 mg EC 00 daily. Medical tablet Branch dicyclomine 2020-0 Yes [id number] 20mg Take 1 [facility] 20 mg 4-18 tablet by [facility] of tablet 00:00: mouth [place] 00 every 6 Medical (six) Branch hours as needed for Abdominal pain. ondansetron 2020-0 Yes [id number] 4mg Take 1 [facility] (ZOFRAN) 4 4-18 tablet by [facility] of mg tablet 00:00: mouth [place] 00 every 8 Medical (eight) Branch hours as needed for Nausea and Vomiting (N/V). pantoprazol 2020-0 Yes [id number] 40mg Take 1 [facility] e 4-18 tablet by [facility] of (PROTONIX) 00:00: mouth [place] 40 mg EC 00 daily. Medical tablet Branch dicyclomine 2020-0 Yes [id number] 20mg Take 1 [facility] 20 mg 4-18 tablet by [facility] of tablet 00:00: mouth [place] 00 every 6 Medical (six) Branch hours as needed for Abdominal pain. ondansetron 2020-0 Yes [id number] 4mg Take 1 [facility] (ZOFRAN) 4 4-18 tablet by [facility] of mg tablet 00:00: mouth [place] 00 every 8 Medical (eight) Branch hours as needed for Nausea and Vomiting (N/V). pantoprazol 2020-0 Yes [id number] 40mg Take 1 [facility] e 4-18 tablet by [facility] of (PROTONIX) 00:00: mouth [place] 40 mg EC 00 daily. Medical tablet Branch dicyclomine 2020-0 Yes [id number] 20mg Take 1 [facility] 20 mg 4-18 tablet by [facility] of tablet 00:00: mouth [place] 00 every 6 Medical (six) Branch hours as needed for Abdominal pain. ondansetron 2020-0 Yes [id number] 4mg Take 1 [facility] (ZOFRAN) 4 4-18 tablet by [facility] of mg tablet 00:00: mouth [place] 00 every 8 Medical (eight) Branch hours as needed for Nausea and Vomiting (N/V). pantoprazol 2020-0 Yes [id number] 40mg Take 1 [facility] e 4-18 tablet by [facility] of (PROTONIX) 00:00: mouth [place] 40 mg EC 00 daily. Medical tablet Branch dicyclomine 0 Yes [id number] 20mg Take 1 [facility] 20 mg 4-18 tablet by [facility] of tablet 00:00: mouth [place] 00 every 6 Medical (six) Branch hours as needed for Abdominal pain. ondansetron 2020-0 Yes [id number] 4mg Take 1 [facility] (ZOFRAN) 4 4-18 tablet by [facility] of mg tablet 00:00: mouth [place] 00 every 8 Medical (eight) Branch hours as needed for Nausea and Vomiting (N/V). pantoprazol 2020-0 Yes [id number] 40mg Take 1 [facility] e 4-18 tablet by [facility] of (PROTONIX) 00:00: mouth [place] 40 mg EC 00 daily. Medical tablet Branch dicyclomine 2020-0 Yes [id number] 20mg Take 1 [facility] 20 mg 4-18 tablet by [facility] of tablet 00:00: mouth [place] 00 every 6 Medical (six) Branch hours as needed for Abdominal pain. ondansetron 2020-0 Yes [id number] 4mg Take 1 [facility] (ZOFRAN) 4 4-18 tablet by [facility] of mg tablet 00:00: mouth [place] 00 every 8 Medical (eight) Branch hours as needed for Nausea and Vomiting (N/V). pantoprazol 2020-0 Yes [id number] 40mg Take 1 [facility] e 4-18 tablet by [facility] of (PROTONIX) 00:00: mouth [place] 40 mg EC 00 daily. Medical tablet Branch dicyclomine 0 Yes [id number] 20mg Take 1 [facility] 20 mg 4-18 tablet by [facility] of tablet 00:00: mouth [place] 00 every 6 Medical (six) Branch hours as needed for Abdominal pain. ondansetron 2020-0 Yes [id number] 4mg Take 1 [facility] (ZOFRAN) 4 4-18 tablet by [facility] of mg tablet 00:00: mouth [place] 00 every 8 Medical (eight) Branch hours as needed for Nausea and Vomiting (N/V). pantoprazol 2020-0 Yes [id number] 40mg Take 1 [facility] e 4-18 tablet by [facility] of (PROTONIX) 00:00: mouth [place] 40 mg EC 00 daily. Medical tablet Branch dicyclomine 2020-0 Yes [id number] 20mg Take 1 [facility] 20 mg 4-18 tablet by [facility] of tablet 00:00: mouth [place] 00 every 6 Medical (six) Branch hours as needed for Abdominal pain. ondansetron 2020-0 Yes [id number] 4mg Take 1 [facility] (ZOFRAN) 4 4-18 tablet by [facility] of mg tablet 00:00: mouth [place] 00 every 8 Medical (eight) Branch hours as needed for Nausea and Vomiting (N/V). pantoprazol 2020-0 Yes [id number] 40mg Take 1 [facility] e 4-18 tablet by [facility] of (PROTONIX) 00:00: mouth [place] 40 mg EC 00 daily. Medical tablet Branch dicyclomine 2020-0 Yes [id number] 20mg Take 1 [facility] 20 mg 4-18 tablet by [facility] of tablet 00:00: mouth [place] 00 every 6 Medical (six) Branch hours as needed for Abdominal pain. ondansetron 2020-0 Yes [id number] 4mg Take 1 [facility] (ZOFRAN) 4 4-18 tablet by [facility] of mg tablet 00:00: mouth [place] 00 every 8 Medical (eight) Branch hours as needed for Nausea and Vomiting (N/V). pantoprazol 2020-0 Yes [id number] 40mg Take 1 [facility] e 4-18 tablet by [facility] of (PROTONIX) 00:00: mouth [place] 40 mg EC 00 daily. Medical tablet Branch dicyclomine 2020-0 Yes [id number] 20mg Take 1 [facility] 20 mg 4-18 tablet by [facility] of tablet 00:00: mouth [place] 00 every 6 Medical (six) Branch hours as needed for Abdominal pain. ondansetron 2020-0 Yes [id number] 4mg Take 1 [facility] (ZOFRAN) 4 4-18 tablet by [facility] of mg tablet 00:00: mouth [place] 00 every 8 Medical (eight) Branch hours as needed for Nausea and Vomiting (N/V). pantoprazol 2020-0 Yes [id number] 40mg Take 1 [facility] e 4-18 tablet by [facility] of (PROTONIX) 00:00: mouth [place] 40 mg EC 00 daily. Medical tablet Branch dicyclomine 2020-0 Yes [id number] 20mg Take 1 [facility] 20 mg 4-18 tablet by [facility] of tablet 00:00: mouth [place] 00 every 6 Medical (six) Branch hours as needed for Abdominal pain. ondansetron 2020-0 Yes [id number] 4mg Take 1 [facility] (ZOFRAN) 4 4-18 tablet by [facility] of mg tablet 00:00: mouth [place] 00 every 8 Medical (eight) Branch hours as needed for Nausea and Vomiting (N/V). pantoprazol 2020-0 Yes [id number] 40mg Take 1 [facility] e 4-18 tablet by [facility] of (PROTONIX) 00:00: mouth [place] 40 mg EC 00 daily. Medical tablet Branch dicyclomine 2020-0 Yes [id number] 20mg Take 1 [facility] 20 mg 4-18 tablet by [facility] of tablet 00:00: mouth [place] 00 every 6 Medical (six) Branch hours as needed for Abdominal pain. ondansetron 2020-0 Yes [id number] 4mg Take 1 [facility] (ZOFRAN) 4 4-18 tablet by [facility] of mg tablet 00:00: mouth [place] 00 every 8 Medical (eight) Branch hours as needed for Nausea and Vomiting (N/V). pantoprazol 2020-0 Yes [id number] 40mg Take 1 [facility] e 4-18 tablet by [facility] of (PROTONIX) 00:00: mouth [place] 40 mg EC 00 daily. Medical tablet Branch dicyclomine 2020-0 Yes [id number] 20mg Take 1 [facility] 20 mg 4-18 tablet by [facility] of tablet 00:00: mouth [place] 00 every 6 Medical (six) Branch hours as needed for Abdominal pain. ondansetron 2020-0 Yes [id number] 4mg Take 1 [facility] (ZOFRAN) 4 4-18 tablet by [facility] of mg tablet 00:00: mouth [place] 00 every 8 Medical (eight) Branch hours as needed for Nausea and Vomiting (N/V). pantoprazol 2020-0 Yes [id number] 40mg Take 1 [facility] e 4-18 tablet by [facility] of (PROTONIX) 00:00: mouth [place] 40 mg EC 00 daily. Medical tablet Branch dicyclomine 2020-0 Yes [id number] 20mg Take 1 [facility] 20 mg 4-18 tablet by [facility] of tablet 00:00: mouth [place] 00 every 6 Medical (six) Branch hours as needed for Abdominal pain. ondansetron 2020-0 Yes [id number] 4mg Take 1 [facility] (ZOFRAN) 4 4-18 tablet by [facility] of mg tablet 00:00: mouth [place] 00 every 8 Medical (eight) Branch hours as needed for Nausea and Vomiting (N/V). pantoprazol 2020-0 Yes [id number] 40mg Take 1 [facility] e 4-18 tablet by [facility] of (PROTONIX) 00:00: mouth [place] 40 mg EC 00 daily. Medical tablet Branch dicyclomine 2020-0 Yes [id number] 20mg Take 1 [facility] 20 mg 4-18 tablet by [facility] of tablet 00:00: mouth [place] 00 every 6 Medical (six) Branch hours as needed for Abdominal pain. ondansetron 2020-0 Yes [id number] 4mg Take 1 [facility] (ZOFRAN) 4 4-18 tablet by [facility] of mg tablet 00:00: mouth [place] 00 every 8 Medical (eight) Branch hours as needed for Nausea and Vomiting (N/V). pantoprazol 2020-0 Yes [id number] 40mg Take 1 [facility] e 4-18 tablet by [facility] of (PROTONIX) 00:00: mouth [place] 40 mg EC 00 daily. Medical tablet Branch dicyclomine 2020-0 Yes [id number] 20mg Take 1 [facility] 20 mg 4-18 tablet by [facility] of tablet 00:00: mouth [place] 00 every 6 Medical (six) Branch hours as needed for Abdominal pain. ondansetron 2020-0 Yes [id number] 4mg Take 1 [facility] (ZOFRAN) 4 4-18 tablet by [facility] of mg tablet 00:00: mouth [place] 00 every 8 Medical (eight) Branch hours as needed for Nausea and Vomiting (N/V). pantoprazol 2020-0 Yes [id number] 40mg Take 1 [facility] e 4-18 tablet by [facility] of (PROTONIX) 00:00: mouth [place] 40 mg EC 00 daily. Medical tablet Branch dicyclomine 2020-0 Yes [id number] 20mg Take 1 [facility] 20 mg 4-18 tablet by [facility] of tablet 00:00: mouth [place] 00 every 6 Medical (six) Branch hours as needed for Abdominal pain. ondansetron 2020-0 Yes [id number] 4mg Take 1 [facility] (ZOFRAN) 4 4-18 tablet by [facility] of mg tablet 00:00: mouth [place] 00 every 8 Medical (eight) Branch hours as needed for Nausea and Vomiting (N/V). pantoprazol 2020-0 Yes [id number] 40mg Take 1 [facility] e 4-18 tablet by [facility] of (PROTONIX) 00:00: mouth [place] 40 mg EC 00 daily. Medical tablet Branch dicyclomine 2020-0 Yes [id number] 20mg Take 1 [facility] 20 mg 4-18 tablet by [facility] of tablet 00:00: mouth [place] 00 every 6 Medical (six) Branch hours as needed for Abdominal pain. ondansetron 2020-0 Yes [id number] 4mg Take 1 [facility] (ZOFRAN) 4 4-18 tablet by [facility] of mg tablet 00:00: mouth [place] 00 every 8 Medical (eight) Branch hours as needed for Nausea and Vomiting (N/V). acetaminoph 2019- Yes [id number] 1{tbl} Take 1-2 [...] Fluconazole Fluconazole 2020-0 Yes JUNE TAKE 1 [facility] 150 MG Oral 150 MG Oral 5-29 [facility] TABLET 1 [facility] Tablet Tablet 00:00: D.O. TIME ONLY. ans 00 metroNIDAZO metroNIDAZO 2020-0 Yes JUNE Q0.5D TAKE 1 [facility] LE 500 MG LE 500 MG 5-28 [facility] TABLET [facility] Oral Tablet Oral Tablet 00:00: D.O. TWICE ans 00 DAILY UNTIL FINISHED. nystatin 2020-0 Yes [id number] Apply to [facility] 100,000 2-05 affected [facility] of unit/gram 00:00: area(s) 3 [facility] as ointment 00 (three) Medical times Branch daily. nystatin 2020-0 Yes [id number] Apply to [facility] 100,000 2-05 affected [facility] of unit/gram 00:00: area(s) 3 [facility] ointment 00 (three) Medical times Branch daily. nystatin 2020-0 Yes [id number] Apply to [facility] 100,000 2-05 affected [facility] of unit/gram 00:00: area(s) 3 [facility] ointment 00 (three) Medical times Branch daily. nystatin 2020-0 Yes [id number] Apply to [facility] 100,000 2-05 affected [facility] of unit/gram 00:00: area(s) 3 [facility] ointment 00 (three) Medical times Branch daily. nystatin 2020-0 Yes [id number] Apply to [facility] 100,000 2-05 affected [facility] of unit/gram 00:00: area(s) 3 [facility] ointment 00 (three) Medical times Branch daily. nystatin 2020-0 Yes [id number] Apply to [facility] 100,000 2-05 affected [facility] of unit/gram 00:00: area(s) 3 [facility] ointment 00 (three) Medical times Branch daily. nystatin 2020-0 Yes [id number] Apply to [facility] 100,000 2-05 affected [facility] of unit/gram 00:00: area(s) 3 [facility] ointment 00 (three) Medical times Branch daily. nystatin 2020-0 Yes [id number] Apply to [facility] 100,000 2-05 affected [facility] of unit/gram 00:00: area(s) 3 [facility] ointment 00 (three) Medical times Branch daily. nystatin 2020-0 Yes [id number] Apply to [facility] 100,000 2-05 affected [facility] of unit/gram 00:00: area(s) 3 [facility] ointment 00 (three) Medical times Branch daily. nystatin 2020-0 Yes [id number] Apply to [facility] 100,000 2-05 affected [facility] of unit/gram 00:00: area(s) 3 [facility] ointment 00 (three) Medical times Branch daily. nystatin 2020-0 Yes [id number] Apply to [facility] 100,000 2-05 affected [facility] of unit/gram 00:00: area(s) 3 [facility] ointment 00 (three) Medical times Branch daily. nystatin 2020-0 Yes [id number] Apply to [facility] 100,000 2-05 affected [facility] of unit/gram 00:00: area(s) 3 [facility] ointment 00 (three) Medical times Branch daily. nystatin 2020-0 Yes [id number] Apply to [facility] 100,000 2-05 affected [facility] of unit/gram 00:00: area(s) 3 [facility] ointment 00 (three) Medical times Branch daily. nystatin 2020-0 Yes [id number] Apply to [facility] 100,000 2-05 affected [facility] of unit/gram 00:00: area(s) 3 [facility] ointment 00 (three) Medical times Branch daily. nystatin 2020-0 Yes [id number] Apply to [facility] 100,000 2-05 affected [facility] of unit/gram 00:00: area(s) 3 [facility] ointment 00 (three) Medical times Branch daily. nystatin 2020-0 Yes [id number] Apply to [facility] 100,000 2-05 affected [facility] of unit/gram 00:00: area(s) 3 [facility] ointment 00 (three) Medical times Branch daily. nystatin 2020-0 Yes [id number] Apply to [facility] 100,000 2-05 affected [facility] of unit/gram 00:00: area(s) 3 [facility] ointment 00 (three) Medical times Branch daily. nystatin 2020-0 Yes [id number] Apply to [facility] 100,000 2-05 affected [facility] of unit/gram 00:00: area(s) 3 [facility] ointment 00 (three) Medical times Branch daily. nystatin 2020-0 Yes [id number] Apply to [facility] 100,000 2-05 affected [facility] of unit/gram 00:00: area(s) 3 [facility] ointment 00 (three) Medical times Branch daily. nystatin 2020-0 Yes [id number] Apply to [facility] 100,000 2-05 affected [facility] of unit/gram 00:00: area(s) 3 [facility] ointment 00 (three) Medical times Branch daily. nystatin 2020-0 Yes [id number] Apply to [facility] 100,000 2-05 affected [facility] of unit/gram 00:00: area(s) 3 [facility] ointment 00 (three) Medical times Branch daily. nystatin 2020-0 Yes [id number] Apply to [facility] 100,000 2-05 affected [facility] of unit/gram 00:00: area(s) 3 [facility] ointment 00 (three) Medical times Branch daily. nystatin 2020-0 Yes [id number] Apply to [facility] 100,000 2-05 affected [facility] of unit/gram 00:00: area(s) 3 [facility] ointment 00 (three) Medical times Branch daily. nystatin 2020-0 Yes [id number] Apply to [facility] 100,000 2-05 affected [facility] of unit/gram 00:00: area(s) 3 [facility] ointment 00 (three) Medical times Branch daily. nystatin 2020-0 Yes [id number] Apply to [facility] 100,000 2-05 affected [facility] of unit/gram 00:00: area(s) 3 [facility] ointment 00 (three) Medical times Branch daily. nystatin 2020-0 Yes [id number] Apply to [facility] 100,000 2-05 affected [facility] of unit/gram 00:00: area(s) 3 [facility] ointment 00 (three) Medical times Branch daily. nystatin 2020-0 Yes [id number] Apply to [facility] 100,000 2-05 affected [facility] of unit/gram 00:00: area(s) 3 [facility] ointment 00 (three) Medical times Branch daily. nystatin 2020-0 Yes [id number] Apply to [facility] 100,000 2-05 affected [facility]y of unit/gram 00:00: area(s) 3 [facility] ointment 00 (three) Medical times Branch daily. nystatin 2020-0 Yes [id number] Apply to [facility] 100,000 2-05 affected [facility] of unit/gram 00:00: area(s) 3 [facility] ointment 00 (three) Medical times Branch daily. nystatin 2020-0 Yes [id number] Apply to [facility] 100,000 2-05 affected [facility] of unit/gram 00:00: area(s) 3 [facility] ointment 00 (three) Medical times Branch daily. nystatin 2020-0 Yes [id number] Apply to [facility] 100,000 2-05 affected [facility] of unit/gram 00:00: area(s) 3 [facility] ointment 00 (three) Medical times Branch daily. nystatin 2020-0 Yes [id number] Apply to [facility] 100,000 2-05 affected [facility] of unit/gram 00:00: area(s) 3 [facility] ointment 00 (three) Medical times Branch daily. nystatin 2020-0 Yes [id number] Apply to [facility] 100,000 2-05 affected [facility]y of unit/gram 00:00: area(s) 3 [facility] ointment 00 (three) Medical times Branch daily. nystatin 2020-0 Yes [id number] Apply to [facility] 100,000 2-05 affected [facility]y of unit/gram 00:00: area(s) 3 [facility] ointment 00 (three) Medical times Branch daily. nystatin 2020-0 Yes [id number] Apply to [facility] 100,000 2-05 affected [facility]y of unit/gram 00:00: area(s) 3 [facility] ointment 00 (three) Medical times Branch daily. nystatin 2020-0 Yes [id number] Apply to [facility] 100,000 2-05 affected [facility]y of unit/gram 00:00: area(s) 3 [facility] ointment 00 (three) Medical times Branch daily. nystatin 2020-0 Yes [id number] Apply to [facility] 100,000 2-05 affected [facility]y of unit/gram 00:00: area(s) 3 [facility] ointment 00 (three) Medical times Branch daily. nystatin 2020-0 Yes [id number] Apply to [facility] 100,000 2-05 affected ity [...] ans Tablet Tablet 00 DIRECTED. medroxyPROG Yes [id number] 150mg [facility] ESTERone 5-14 [facility] of (DEPO-PROVE 18:30: [place] [facility]) 00 Medical injection Branch 150 mg medroxyPROG 2018- Yes [id number] 150mg [facility] ESTERone 5-14 [facility] of (DEPO-PROVE 18:30: [place] [facility]) 00 Medical injection [facility] 150 mg medroxyPROG 2019- Yes [id number] 150mg [facility] ESTERone 5-14 ity of (DEPO-PROVE 18:30: [place] [facility]) 00 Medical injection [facility] 150 mg medroxyPROG 2018- Yes [id number] 150mg [facility] ESTERone 5-14 ity of (DEPO-PROVE 18:30: [place] [facility]) 00 Medical injection Branch 150 mg medroxyPROG 2018- Yes [id number] 150mg [facility] ESTERone 5-14 ity of (DEPO-PROVE 18:30: [place] [facility]) 00 Medical injection Branch 150 mg medroxyPROG 2019-0 Yes [id number] 150mg [facility] ESTERone 5-14 ity of (DEPO-PROVE 18:30: [place] [facility]) 00 Medical injection Branch 150 mg medroxyPROG 2019-0 Yes [id number] 150mg [facility] ESTERone 5-14 ity of (DEPO-PROVE 18:30: [place] [facility]) 00 Medical injection Branch 150 mg medroxyPROG 2019-0 Yes [id number] 150mg [facility] ESTERone 5-14 ity of (DEPO-PROVE 18:30: [place] [facility]) 00 Medical injection Branch 150 mg medroxyPROG 2019-0 Yes [id number] 150mg [facility] ESTERone 5-14 ity of (DEPO-PROVE 18:30: [place] [facility]) 00 Medical injection Branch 150 mg medroxyPROG 2019-0 Yes [id number] 150mg [facility] ESTERone 5-14 [facility]y of (DEPO-PROVE 18:30: [place] [facility]) 00 [facility] injection [facility] 150 mg medroxyPROG 2019-0 Yes [id number] 150mg [facility] ESTERone 5-14 ity of (DEPO-PROVE 18:30: [place] [facility]) 00 [facility] injection [facility] 150 mg medroxyPROG 2019-0 Yes [id number] 150mg [facility] ESTERone 5-14 ity of (DEPO-PROVE 18:30: [place] [facility]) 00 [facility] injection [facility] 150 mg medroxyPROG 2019-0 Yes [id number] 150mg [facility] ESTERone 5-14 ity of (DEPO-PROVE 18:30: [place] [facility]) 00 [facility] injection [facility] 150 mg medroxyPROG 2019-0 Yes [id number] 150mg [facility] ESTERone 5-14 ity of (DEPO-PROVE 18:30: [place] [facility]) 00 [facility] injection [facility] 150 mg medroxyPROG 2019-0 Yes [id number] 150mg [facility] ESTERone 5-14 ity of (DEPO-PROVE 18:30: [place] [facility]) 00 [facility] injection [facility] 150 mg medroxyPROG 2019-0 Yes [id number] 150mg [facility] ESTERone 5-14 ity of (DEPO-PROVE 18:30: [place] [facility]) 00 [facility] injection [facility] 150 mg medroxyPROG 2019-0 Yes [id number] 150mg [facility] ESTERone 5-14 ity of (DEPO-PROVE 18:30: [place] [facility]) 00 [facility] injection [facility] 150 mg medroxyPROG 2019-0 Yes [id number] 150mg [facility] ESTERone 5-14 ity of (DEPO-PROVE 18:30: [place] [facility]) 00 [facility] injection [facility] 150 mg medroxyPROG 2019-0 Yes [id number] 150mg [facility] ESTERone 5-14 ity of (DEPO-PROVE 18:30: [place] [facility]) 00 [facility] injection [facility] 150 mg medroxyPROG 2019-0 Yes [id number] 150mg [facility] ESTERone 5-14 ity of (DEPO-PROVE 18:30: [place] [facility]) 00 [facility] injection [facility] 150 mg medroxyPROG 2019-0 Yes [id number] 150mg [facility] ESTERone 5-14 ity of (DEPO-PROVE 18:30: [place] [facility]) 00 [facility] injection [facility] 150 mg medroxyPROG 2019-0 Yes [id number] 150mg [facility] ESTERone 5-14 ity of (DEPO-PROVE 18:30: [place] [facility]) 00 [facility] injection [facility] 150 mg medroxyPROG 2019-0 Yes [id number] 150mg [facility] ESTERone 5-14 ity of (DEPO-PROVE 18:30: [place] [facility]) 00 [facility] injection [facility] 150 mg medroxyPROG 2019-0 Yes [id number] 150mg [facility] ESTERone 5-14 ity of (DEPO-PROVE 18:30: [place] [facility]) 00 [facility] injection [facility] 150 mg medroxyPROG 2019-0 Yes [id number] 150mg [facility] ESTERone 5-14 ity of (DEPO-PROVE 18:30: [place] [facility]) 00 [facility] injection [facility] 150 mg medroxyPROG 2019-0 Yes [id number] 150mg [facility] ESTERone 5-14 ity of (DEPO-PROVE 18:30: [place] [facility]) 00 [facility] injection [facility] 150 mg medroxyPROG 2019-0 Yes [id number] 150mg [facility] ESTERone 5-14 ity of (DEPO-PROVE 18:30: [place] [facility]) 00 [facility] injection [facility] 150 mg medroxyPROG 2019-0 Yes [id number] 150mg [facility] ESTERone 5-14 ity of (DEPO-PROVE 18:30: [place] [facility]) 00 [facility] injection [facility] 150 mg medroxyPROG 2019-0 Yes [id number] 150mg [facility] ESTERone 5-14 ity of (DEPO-PROVE 18:30: [place] [facility]) 00 [facility] injection [facility] 150 mg medroxyPROG 2019-0 Yes [id number] 150mg [facility] ESTERone 5-14 ity of (DEPO-PROVE 18:30: [place] [facility]) 00 [facility] injection [facility] 150 mg medroxyPROG 2019-0 Yes [id number] 150mg [facility] ESTERone 5-14 ity of (DEPO-PROVE 18:30: [place] [facility]) 00 [facility] injection [facility] 150 mg medroxyPROG 2019-0 Yes [id number] 150mg [facility] ESTERone 5-14 ity of (DEPO-PROVE 18:30: [place] [facility]) 00 [facility] injection [facility] 150 mg medroxyPROG 2019-0 Yes [id number] 150mg [facility] ESTERone 5-14 ity of (DEPO-PROVE 18:30: [place] [facility]) 00 [facility] injection [facility] 150 mg medroxyPROG 2019-0 Yes [id number] 150mg [facility] ESTERone 5-14 ity of (DEPO-PROVE 18:30: [place] [facility]) 00 [facility] injection [facility] 150 mg medroxyPROG 2019-0 Yes [id number] 150mg [facility] ESTERone 5-14 ity of (DEPO-PROVE 18:30: [place] [facility]) 00 [facility] injection [facility] 150 mg medroxyPROG 2019-0 Yes [id number] 150mg [facility] ESTERone 5-14 ity of (DEPO-PROVE 18:30: [place] [facility]) 00 [facility] injection [facility] 150 mg medroxyPROG 2019-0 Yes [id number] 150mg [facility] ESTERone 5-14 ity of (DEPO-PROVE 18:30: [place] [facility]) 00 [facility] injection [facility] 150 mg medroxyPROG 2019-0 Yes [id number] 150mg [facility] ESTERone 5-14 ity of (DEPO-PROVE 18:30: [place] [facility]) 00 Medical injection [facility] 150 mg Keppra 500 Keppra 500 2018-0 Yes M.D. U T MG Oral MG Oral 1-02 [facility] Tablet Tablet 00:00: ans 00 Immunizations Ordered Immunization Filled Immunization Date Status Commen ts Source Name Name PFIZER COVID-19 MRNA 2021-08-06 Completed [facility] odist VACCINATION 00:00:00 Hospital PFIZER COVID-19 MRNA 2021-08-06 Completed Meth odist VACCINATION 00:00:00 [facility] SARS-COV-2 COVID-19 2021-08-06 Completed Unive rsity of PFIZER VACCINE 00:00:00 [facility] SARS-COV-2 COVID-19 2021-08-06 Completed Unive rsity of PFIZER VACCINE 00:00:00 [facility] SARS-COV-2 COVID-19 2021-08-06 Completed Unive rsity of PFIZER VACCINE 00:00:00 [facility] SARS-COV-2 COVID-19 2021-08-06 Completed Unive rsity of PFIZER VACCINE 00:00:00 [facility] SARS-COV-2 COVID-19 2021-08-06 Completed Unive rsity of PFIZER VACCINE 00:00:00 [facility] SARS-COV-2 COVID-19 2021-08-06 Completed Unive rsity of PFIZER VACCINE 00:00:00 [facility] SARS-COV-2 COVID-19 2021-08-06 Completed Unive rsity of PFIZER VACCINE 00:00:00 [facility] SARS-COV-2 COVID-19 2021-08-06 Completed Unive rsity of PFIZER VACCINE 00:00:00 [facility] SARS-COV-2 COVID-19 2021-08-06 Completed Unive rsity of PFIZER VACCINE 00:00:00 [facility] SARS-COV-2 COVID-19 2021-08-06 Completed Unive rsity of PFIZER VACCINE 00:00:00 [facility] SARS-COV-2 COVID-19 2021-08-06 Completed Unive rsity of PFIZER VACCINE 00:00:00 [facility] SARS-COV-2 COVID-19 2021-08-06 Completed Unive rsity of PFIZER VACCINE 00:00:00 [facility] SARS-COV-2 COVID-19 2021-08-06 Completed Unive rsity of PFIZER VACCINE 00:00:00 [facility] SARS-COV-2 COVID-19 2021-08-06 Completed Unive rsity of PFIZER VACCINE 00:00:00 [facility] SARS-COV-2 COVID-19 2021-08-06 Completed Unive rsity of PFIZER VACCINE 00:00:00 [facility] PFIZER COVID-19 MRNA 2021-08-06 Completed Meth odist VACCINATION 00:00:00 [facility] PFIZER COVID-19 MRNA 2021-07-09 Completed Meth odist VACCINATION 00:00:00 Hospital PFIZER COVID-19 MRNA 2021-07-09 Completed Meth odist VACCINATION 00:00:00 Hospital PFIZER COVID-19 MRNA 2021-07-09 Completed Meth odist VACCINATION 00:00:00 Hospital PFIZER COVID-19 MRNA 2021-07-09 Completed Meth odist VACCINATION 00:00:00 Hospital SARS-COV-2 COVID-19 2021-07-09 Completed Unive rsity of PFIZER VACCINE 00:00:00 [facility] Influenza Virus 2021-07-09 Completed Universit y of Vaccine Quad .5 mL IM 00:00:00 [facility] SARS-COV-2 COVID-19 2021-07-09 Completed Unive rsity of PFIZER VACCINE 00:00:00 [facility] Influenza Virus 2021-07-09 Completed Universit y of Vaccine Quad .5 mL IM 00:00:00 [facility] SARS-COV-2 COVID-19 2021-07-09 Completed Unive rsity of PFIZER VACCINE 00:00:00 [facility] Influenza Virus 2021-07-09 Completed Universit y of Vaccine Quad .5 mL IM 00:00:00 [facility] SARS-COV-2 COVID-19 2021-07-09 Completed Unive rsity of PFIZER VACCINE 00:00:00 [facility] Influenza Virus 2021-07-09 Completed Universit y of Vaccine Quad .5 mL IM 00:00:00 [facility] SARS-COV-2 COVID-19 2021-07-09 Completed Unive rsity of PFIZER VACCINE 00:00:00 [facility] Influenza Virus 2021-07-09 Completed Universit y of Vaccine Quad .5 mL IM 00:00:00 [facility] SARS-COV-2 COVID-19 2021-07-09 Completed Unive rsity of PFIZER VACCINE 00:00:00 [facility] Influenza Virus 2021-07-09 Completed Universit y of Vaccine Quad .5 mL IM 00:00:00 [facility] SARS-COV-2 COVID-19 2021-07-09 Completed Unive rsity of PFIZER VACCINE 00:00:00 [facility] Influenza Virus 2021-07-09 Completed Universit y of Vaccine Quad .5 mL IM 00:00:00 [facility] SARS-COV-2 COVID-19 2021-07-09 Completed Unive rsity of PFIZER VACCINE 00:00:00 [facility] Influenza Virus 2021-07-09 Completed Universit y of Vaccine Quad .5 mL IM 00:00:00 [facility] SARS-COV-2 COVID-19 2021-07-09 Completed Unive rsity of PFIZER VACCINE 00:00:00 [facility] Influenza Virus 2021-07-09 Completed Universit y of Vaccine Quad .5 mL IM 00:00:00 [facility] SARS-COV-2 COVID-19 2021-07-09 Completed Unive rsity of PFIZER VACCINE 00:00:00 [facility] Influenza Virus 2021-07-09 Completed Universit y of Vaccine Quad .5 mL IM 00:00:00 [facility] SARS-COV-2 COVID-19 2021-07-09 Completed Unive rsity of PFIZER VACCINE 00:00:00 [facility] Influenza Virus 2021-07-09 Completed Universit y of Vaccine Quad .5 mL IM 00:00:00 [facility] SARS-COV-2 COVID-19 2021-07-09 Completed Unive rsity of PFIZER VACCINE 00:00:00 [facility] Influenza Virus 2021-07-09 Completed Universit y of Vaccine Quad .5 mL IM 00:00:00 [facility] SARS-COV-2 COVID-19 2021-07-09 Completed Unive rsity of PFIZER VACCINE 00:00:00 [facility] Influenza Virus 2021-07-09 Completed Universit y of Vaccine Quad .5 mL IM 00:00:00 [facility] SARS-COV-2 COVID-19 2021-07-09 Completed Unive rsity of PFIZER VACCINE 00:00:00 [facility] Influenza Virus 2021-07-09 Completed Universit y of Vaccine Quad .5 mL IM 00:00:00 [facility] SARS-COV-2 COVID-19 2021-07-09 Completed Unive rsity of PFIZER VACCINE 00:00:00 [facility] Influenza Virus 2021-07-09 Completed Universit y of Vaccine Quad .5 mL IM 00:00:00 [facility] PFIZER COVID-19 MRNA 2021-07-09 Completed Meth odist VACCINATION 00:00:00 [facility] Tetanus/Diptheria 2016-08-11 Completed Univers ity of 00:00:00 [facility] Varicella 2016-08-11 Completed University of (varivax)(chicken 00:00:00 [place] [facility] pox) [facility] Tetanus/Diptheria 2016-08-11 Completed Univers ity of 00:00:00 [facility] Varicella 2016-08-11 Completed University of (varivax)(chicken 00:00:00 [place] [facility] pox) [facility] Tetanus/Diptheria 2016-08-11 Completed Univers ity of 00:00:00 [facility] Varicella 2016-08-11 Completed University of (varivax)(chicken 00:00:00 [place] [facility] pox) [facility] Tetanus/Diptheria 2016-08-11 Completed Univers ity of 00:00:00 [facility] Varicella 2016-08-11 Completed University of (varivax)(chicken 00:00:00 [place] [facility] pox) [facility] Tetanus/Diptheria 2016-08-11 Completed Univers ity of 00:00:00 [facility] Varicella 2016-08-11 Completed University of (varivax)(chicken 00:00:00 [place] [facility] pox) [facility] Tetanus/Diptheria 2016-08-11 Completed Univers ity of 00:00:00 [facility] Varicella 2016-08-11 Completed University of (varivax)(chicken 00:00:00 [place] [facility] pox) [facility] Tetanus/Diptheria 2016-08-11 Completed Univers ity of 00:00:00 [facility] Varicella 2016-08-11 Completed University of (varivax)(chicken 00:00:00 [place] [facility] pox) [facility] Tetanus/Diptheria 2016-08-11 Completed Univers ity of 00:00:00 [facility] Varicella 2016-08-11 Completed University of (varivax)(chicken 00:00:00 [place] [facility] pox) [facility] Tetanus/Diptheria 2016-08-11 Completed Univers ity of 00:00:00 [facility] Varicella 2016-08-11 Completed University of (varivax)(chicken 00:00:00 [place] [facility] pox) [facility] Tetanus/Diptheria 2016-08-11 Completed Univers ity of 00:00:00 [facility] Varicella 2016-08-11 Completed University of (varivax)(chicken 00:00:00 [place] [facility] pox) [facility] Tetanus/Diptheria 2016-08-11 Completed Univers ity of 00:00:00 [facility] Varicella 2016-08-11 Completed University of (varivax)(chicken 00:00:00 [place] [facility] pox) [facility] Tetanus/Diptheria 2016-08-11 Completed Univers ity of 00:00:00 [facility] Varicella 2016-08-11 Completed University of (varivax)(chicken 00:00:00 [place] [facility] pox) [facility] Tetanus/Diptheria 2016-08-11 Completed Univers ity of 00:00:00 [facility] Varicella 2016-08-11 Completed University of (varivax)(chicken 00:00:00 [place] [facility] pox) [facility] Tetanus/Diptheria 2016-08-11 Completed Univers ity of 00:00:00 [facility] Varicella 2016-08-11 Completed University of (varivax)(chicken 00:00:00 [place] [facility] pox) [facility] Tetanus/Diptheria 2016-08-11 Completed Univers ity of 00:00:00 [facility] Varicella 2016-08-11 Completed University of (varivax)(chicken 00:00:00 [place] [facility] pox) [facility] Varicella 2016-05-21 Completed University of (varivax)(chicken 00:00:00 [place] [facility] pox) [facility] Varicella 2016-05-21 Completed University of (varivax)(chicken 00:00:00 [place] [facility] pox) [facility] Varicella 2016-05-21 Completed University of (varivax)(chicken 00:00:00 [place] [facility] pox) [facility] Varicella 2016-05-21 Completed University of (varivax)(chicken 00:00:00 [place] [facility] pox) [facility] Varicella 2016-05-21 Completed University of (varivax)(chicken 00:00:00 [place] [facility] pox) [facility] Varicella 2016-05-21 Completed University of (varivax)(chicken 00:00:00 [place] [facility] pox) [facility] Varicella 2016-05-21 Completed University of (varivax)(chicken 00:00:00 [place] [facility] pox) [facility] Varicella 2016-05-21 Completed University of (varivax)(chicken 00:00:00 [place] [facility] pox) [facility] Varicella 2016-05-21 Completed University of (varivax)(chicken 00:00:00 [place] [facility] pox) [facility] Varicella 2016-05-21 Completed University of (varivax)(chicken 00:00:00 [place] [facility] pox) [facility] Varicella 2016-05-21 Completed University of (varivax)(chicken 00:00:00 [place] [facility] pox) [facility] Varicella 2016-05-21 Completed University of (varivax)(chicken 00:00:00 [place] [facility] pox) [facility] Varicella 2016-05-21 Completed University of (varivax)(chicken 00:00:00 [place] [facility] pox) [facility] Varicella 2016-05-21 Completed University of (varivax)(chicken 00:00:00 [place] [facility] pox) [facility] Varicella 2016-05-21 Completed University of (varivax)(chicken 00:00:00 [place] [facility] pox) [facility] HEPATITIS A 2008-09-27 Completed University of 00:00:00 [facility] HPV 2008-09-27 Completed University of 00:00:00 [facility] HEPATITIS A 2008-09-27 Completed University of 00:00:00 [facility] HPV 2008-09-27 Completed University of 00:00:00 [facility] HEPATITIS A 2008-09-27 Completed University of 00:00:00 [facility] HPV 2008-09-27 Completed University of 00:00:00 [facility] HEPATITIS A 2008-09-27 Completed University of 00:00:00 [facility] HPV 2008-09-27 Completed University of 00:00:00 [facility] HEPATITIS A 2008-09-27 Completed University of 00:00:00 [facility] HPV 2008-09-27 Completed University of 00:00:00 [facility] HEPATITIS A 2008-09-27 Completed University of 00:00:00 [facility] HPV 2008-09-27 Completed University of 00:00:00 [facility] HEPATITIS A 2008-09-27 Completed University of 00:00:00 [facility] HPV 2008-09-27 Completed University of 00:00:00 [facility] HEPATITIS A 2008-09-27 Completed University of 00:00:00 [facility] HPV 2008-09-27 Completed University of 00:00:00 [place] [facility] HEPATITIS A 2008-09-27 Completed [facility] of 00:00:00 [place] [facility] HPV 2008-09-27 Completed [facility] of 00:00:00 [place] [facility] HEPATITIS A 2008-09-27 Completed University of 00:00:00 [place] [facility] HPV 2008-09-27 Completed [facility] of 00:00:00 [place] [facility] HEPATITIS A 2008-09-27 Completed University of 00:00:00 [place] [facility] HPV 2008-09-27 Completed University of 00:00:00 [place] [facility] HEPATITIS A 2008-09-27 Completed [facility] of 00:00:00 [place] [facility] HPV 2008-09-27 Completed University of 00:00:00 [place] [facility] HEPATITIS A 2008-09-27 Completed University of 00:00:00 [place] [facility] HPV 2008-09-27 Completed University of 00:00:00 [place] [facility] HEPATITIS A 2008-09-27 Completed University of 00:00:00 [place] [facility] HPV 2008-09-27 Completed [facility] of 00:00:00 [place] [facility] HEPATITIS A 2008-09-27 Completed [facility] of 00:00:00 [place] [facility] HPV 2008-09-27 Completed [facility] of 00:00:00 [place] [facility] HPV 2008-05-15 Completed University of 00:00:00 [place] [facility] HPV 2008-05-15 Completed [facility] of 00:00:00 [place] [facility] HPV 2008-05-15 Completed [facility] of 00:00:00 [place] [facility] HPV 2008-05-15 Completed [facility] of 00:00:00 [place] [facility] HPV 2008-05-15 Completed [facility] of 00:00:00 [place] [facility] HPV 2008-05-15 Completed [facility] of 00:00:00 [place] [facility] HPV 2008-05-15 Completed [facility] of 00:00:00 [place] [facility] HPV 2008-05-15 Completed [facility] of 00:00:00 [place] [facility] HPV 2008-05-15 Completed University of 00:00:00 [place] [facility] HPV 2008-05-15 Completed [facility] of 00:00:00 [place] [facility] HPV 2008-05-15 Completed [facility] of 00:00:00 [place] [facility] HPV 2008-05-15 Completed [facility] of 00:00:00 [place] [facility] HPV 2008-05-15 Completed [facility] of 00:00:00 [place] [facility] HPV 2008-05-15 Completed [facility] of 00:00:00 [place] [facility] HPV 2008-05-15 Completed [facility] of 00:00:00 [place] [facility] HEPATITIS A 2008-03-06 Completed [facility] of 00:00:00 [place] [facility] HPV 2008-03-06 Completed [facility] of 00:00:00 [place] [facility] HEPATITIS A 2008-03-06 Completed [facility] of 00:00:00 [place] [facility] HPV 2008-03-06 Completed [facility] of 00:00:00 [place] [facility] HEPATITIS A 2008-03-06 Completed [facility] of 00:00:00 [place] [facility] HPV 2008-03-06 Completed [facility] of 00:00:00 [place] [facility] HEPATITIS A 2008-03-06 Completed [facility] of 00:00:00 [place] [facility] HPV 2008-03-06 Completed [facility] of 00:00:00 [place] [facility] HEPATITIS A 2008-03-06 Completed [facility] of 00:00:00 [place] [facility] HPV 2008-03-06 Completed [facility] of 00:00:00 [place] [facility] HEPATITIS A 2008-03-06 Completed [facility] of 00:00:00 [place] [facility] HPV 2008-03-06 Completed [facility] of 00:00:00 [place] [facility] HEPATITIS A 2008-03-06 Completed [facility] of 00:00:00 [place] [facility] HPV 2008-03-06 Completed [facility] of 00:00:00 [place] [facility] HEPATITIS A 2008-03-06 Completed [facility] of 00:00:00 [place] [facility] HPV 2008-03-06 Completed [facility] of 00:00:00 [place] [facility] HEPATITIS A 2008-03-06 Completed [facility] of 00:00:00 [place] [facility] HPV 2008-03-06 Completed [facility] of 00:00:00 [place] [facility] HEPATITIS A 2008-03-06 Completed [facility] of 00:00:00 [place] [facility] HPV 2008-03-06 Completed [facility] of 00:00:00 [place] [facility] HEPATITIS A 2008-03-06 Completed [facility] of 00:00:00 [place] [facility] HPV 2008-03-06 Completed [facility] of 00:00:00 [place] [facility] HEPATITIS A 2008-03-06 Completed [facility] of 00:00:00 [place] [facility] HPV 2008-03-06 Completed [facility] of 00:00:00 [place] [facility] HEPATITIS A 2008-03-06 Completed [facility] of 00:00:00 [place] [facility] HPV 2008-03-06 Completed [facility] of 00:00:00 [place] [facility] HEPATITIS A 2008-03-06 Completed [facility] of 00:00:00 [place] [facility] HPV 2008-03-06 Completed [facility] of 00:00:00 [place] [facility] HEPATITIS A 2008-03-06 Completed [facility] of 00:00:00 [facility] HPV 2008-03-06 Completed [facility] of 00:00:00 [facility] Meningococcal 2007-12-29 Completed [facility] of Polysaccharide 00:00:00 [place] [facility] (groups A, C, Y and Branc h W-135) conjugate vaccine (MCV4P) TDAP 2007-12-29 Completed [facility] of 00:00:00 [facility] Meningococcal 2007-12-29 Completed [facility] of Polysaccharide 00:00:00 [place] [facility] (groups A, C, Y and Branc h W-135) conjugate vaccine (MCV4P) TDAP 2007-12-29 Completed [facility] of 00:00:00 [facility] Meningococcal 2007-12-29 Completed [facility] of Polysaccharide 00:00:00 [place] [facility] (groups A, C, Y and Branc h W-135) conjugate vaccine (MCV4P) TDAP 2007-12-29 Completed [facility] of 00:00:00 [facility] Meningococcal 2007-12-29 Completed [facility] of Polysaccharide 00:00:00 [place] [facility] (groups A, C, Y and Branc h W-135) conjugate vaccine (MCV4P) TDAP 2007-12-29 Completed [facility] of 00:00:00 [facility] Meningococcal 2007-12-29 Completed [facility] of Polysaccharide 00:00:00 [place] [facility] (groups A, C, Y and Branc h W-135) conjugate vaccine (MCV4P) TDAP 2007-12-29 Completed [facility] of 00:00:00 [facility] Meningococcal 2007-12-29 Completed [facility] of Polysaccharide 00:00:00 [place] [facility] (groups A, C, Y and Branc h W-135) conjugate vaccine (MCV4P) TDAP 2007-12-29 Completed [facility] of 00:00:00 [facility] Meningococcal 2007-12-29 Completed [facility] of Polysaccharide 00:00:00 [place] [facility] (groups A, C, Y and Branc h W-135) conjugate vaccine (MCV4P) TDAP 2007-12-29 Completed [facility] of 00:00:00 [facility] Meningococcal 2007-12-29 Completed [facility] of Polysaccharide 00:00:00 [place] [facility] (groups A, C, Y and Branc h W-135) conjugate vaccine (MCV4P) TDAP 2007-12-29 Completed [facility] of 00:00:00 [facility] Meningococcal 2007-12-29 Completed [facility] of Polysaccharide 00:00:00 [place] [facility] (groups A, C, Y and Branc h W-135) conjugate vaccine (MCV4P) TDAP 2007-12-29 Completed [facility] of 00:00:00 [facility] Meningococcal 2007-12-29 Completed [facility] of Polysaccharide 00:00:00 [place] [facility] (groups A, C, Y and Branc h W-135) conjugate vaccine (MCV4P) TDAP 2007-12-29 Completed [facility] of 00:00:00 [facility] Meningococcal 2007-12-29 Completed [facility] of Polysaccharide 00:00:00 [place] [facility] (groups A, C, Y and Branc h W-135) conjugate vaccine (MCV4P) TDAP 2007-12-29 Completed [facility] of 00:00:00 [facility] Meningococcal 2007-12-29 Completed [facility] of Polysaccharide 00:00:00 [place] [facility] (groups A, C, Y and Branc h W-135) conjugate vaccine (MCV4P) TDAP 2007-12-29 Completed [facility] of 00:00:00 [facility] Meningococcal 2007-12-29 Completed [facility] of Polysaccharide 00:00:00 [place] [facility] (groups A, C, Y and Branc h W-135) conjugate vaccine (MCV4P) TDAP 2007-12-29 Completed [facility] of 00:00:00 [facility] Meningococcal 2007-12-29 Completed [facility] of Polysaccharide 00:00:00 [place] [facility] (groups A, C, Y and Branc h W-135) conjugate vaccine (MCV4P) TDAP 2007-12-29 Completed [facility] of 00:00:00 [facility] Meningococcal 2007-12-29 Completed [facility] of Polysaccharide 00:00:00 [place] [facility] (groups A, C, Y and Branc h W-135) conjugate vaccine (MCV4P) TDAP 2007-12-29 Completed [facility] of 00:00:00 [facility] DTaP, Unspecified 1998-01-03 Completed Univers ity of Formulation 00:00:00 [facility] Hep B, Adol or Pedi 1998-01-03 Completed Unive rsity of Dosage 00:00:00 [facility] Poliovirus, Live, 1998-01-03 Completed Univers ity of Oral, Trivalent 00:00:00 [facility] D[facility]P, Unspecified 1998-01-03 Completed Univers ity of Formulation 00:00:00 [facility] Hep B, Adol or Pedi 1998-01-03 Completed Unive rsity of Dosage 00:00:00 [facility] Poliovirus, Live, 1998-01-03 Completed Univers ity of Oral, Trivalent 00:00:00 [facility] [place] [facility] DTaP, Unspecified 1998-01-03 Completed Univers ity of Formulation 00:00:00 [facility] Hep B, Adol or Pedi 1998-01-03 Completed Unive rsity of Dosage 00:00:00 [facility] Poliovirus, Live, 1998-01-03 Completed Univers ity of Oral, Trivalent 00:00:00 [facility] [place] [facility] DTaP, Unspecified 1998-01-03 Completed [facility] Formulation 00:[facility]:00 [facility] Hep B, Adol or Pedi 1998-01-03 Completed [facility] Dosage 00:00:00 [facility] Poliovirus, Live, 1998-01-03 Completed [facility] Oral, Trivalent 00:00:00 [facility] DTaP, Unspecified 1998-01-03 Completed [facility] Form[facility] 00:00:00 [facility] Hep B, Adol or Pedi 1998-01-03 Completed [facility] of Dosage 00:00:00 [facility] Poliovirus, Live, 1998-01-03 Completed [facility] Oral, Trivalent 00:00:00 [facility] DTaP, Unspecified 1998-01-03 Completed [facility] Formulation 00:00:00 [facility] Hep B, Adol or Pedi 1998-01-03 Completed [facility] of Dosage 00:00:00 [facility] Poliovirus, Live, 1998-01-03 Completed [facility] Oral, Trivalent 00:00:00 [facility] DTaP, Unspecified 1998-01-03 Completed [facility] Formulation 00:00:00 [facility] Hep B, Adol or Pedi 1998-01-03 Completed [facility] of Dosage 00:00:00 [facility] Poliovirus, Live, 1998-01-03 Completed [facility] Oral, Trivalent 00:00:00 [facility] DTaP, Unspecified 1998-01-03 Completed [facility] Formulation 00:00:00 [facility] Hep B, Adol or Pedi 1998-01-03 Completed [facility] of Dosage 00:00:00 [facility] Poliovirus, Live, 1998-01-03 Completed [facility] Oral, Trivalent 00:00:00 [facility] DTaP, Unspecified 1998-01-03 Completed [facility] Formulation 00:00:00 [facility] Hep B, Adol or Pedi 1998-01-03 Completed [facility] of Dosage 00:00:00 [facility] Poliovirus, Live, 1998-01-03 Completed [facility] Oral, Trivalent 00:00:00 [facility] DTaP, Unspecified 1998-01-03 Completed [facility] Formulation 00:00:00 [facility] Hep B, Adol or Pedi 1998-01-03 Completed [facility] of Dosage 00:00:00 [facility] Poliovirus, Live, 1998-01-03 Completed [facility] Oral, Trivalent 00:00:00 [facility] DTaP, Unspecified 1998-01-03 Completed [facility] Formulation 00:00:00 [facility] Hep B, Adol or Pedi 1998-01-03 Completed [facility] of Dosage 00:00:00 [facility] Poliovirus, Live, 1998-01-03 Completed [facility] Oral, Trivalent 00:00:00 [facility] DTaP, Unspecified 1998-01-03 Completed [facility] Formulation 00:00:00 [facility] Hep B, Adol or Pedi 1998-01-03 Completed [facility] of Dosage 00:00:00 [facility] Poliovirus, Live, 1998-01-03 Completed [facility] Oral, Trivalent 00:00:00 [facility] DTaP, Unspecified 1998-01-03 Completed [facility] Formulation 00:00:00 [facility] Hep B, Adol or Pedi 1998-01-03 Completed [facility] of Dosage 00:00:00 [facility] Poliovirus, Live, 1998-01-03 Completed [facility] Oral, Trivalent 00:00:00 [facility] DTaP, Unspecified 1998-01-03 Completed [facility] Formulation 00:00:00 [facility] Hep B, Adol or Pedi 1998-01-03 Completed [facility] of Dosage 00:00:00 [facility] Poliovirus, Live, 1998-01-03 Completed [facility] Oral, Trivalent 00:00:00 [facility] DTaP, Unspecified 1998-01-03 Completed [facility] Formulation 00:00:00 [facility] Hep B, Adol or Pedi 1998-01-03 Completed [facility] of Dosage 00:00:00 [facility] Poliovirus, Live, 1998-01-03 Completed [facility] Oral, Trivalent 00:00:00 [facility] Hep B, Unspecified 1997-03-28 Completed [facility] Formulation 00:00:00 [facility] Hep B, Adol or Pedi 1997-03-28 Completed [facility] of Dosage 00:00:00 [facility] MMR 1997-03-28 Completed [facility] 00:00:00 [facility] Hep B, Unspecified 1997-03-28 Completed [facility] Formulation 00:00:00 [facility] Hep B, Adol or Pedi 1997-03-28 Completed [facility] of Dosage 00:00:00 [facility] MMR 1997-03-28 Completed [facility] 00:00:00 [facility] Hep B, Unspecified 1997-03-28 Completed [facility] Formulation 00:00:00 [facility] Hep B, Adol or Pedi 1997-03-28 Completed [facility] of Dosage 00:00:00 [facility] MMR 1997-03-28 Completed [facility] 00:00:00 [facility] Hep B, Unspecified 1997-03-28 Completed [facility] Formulation 00:00:00 [facility] Hep B, Adol or Pedi 1997-03-28 Completed [facility] Dosage 00:00:00 [facility] MMR 1997-03-28 Completed [facility] 00:00:00 [facility] Hep B, Unspecified 1997-03-28 Completed [facility] Formulation 00:00:00 [facility] Hep B, Adol or Pedi 1997-03-28 Completed [facility] of Dosage 00:00:00 [facility] MMR 1997-03-28 Completed [facility] 00:00:00 [facility] Hep B, Unspecified 1997-03-28 Completed [facility] Formulation 00:00:00 [facility] Hep B, Adol or Pedi 1997-03-28 Completed [facility] of Dosage 00:00:00 [facility] MMR 1997-03-28 Completed [facility] 00:00:00 [facility] Hep B, Unspecified 1997-03-28 Completed [facility] Formulation 00:00:00 [facility] Hep B, Adol or Pedi 1997-03-28 Completed [facility] of Dosage 00:00:00 [facility] MMR 1997-03-28 Completed [facility] 00:00:00 [facility] Hep B, Unspecified 1997-03-28 Completed [facility] Formulation 00:00:00 [facility] Hep B, Adol or Pedi 1997-03-28 Completed [facility] of Dosage 00:00:00 [facility] MMR 1997-03-28 Completed [facility] 00:00:00 [facility] Hep B, Unspecified 1997-03-28 Completed [facility] Formulation 00:00:00 [facility] Hep B, Adol or Pedi 1997-03-28 Completed [facility] of Dosage 00:00:00 [facility] MMR 1997-03-28 Completed [facility] 00:00:00 [facility] Hep B, Unspecified 1997-03-28 Completed [facility] Formulation 00:00:00 [facility] Hep B, Adol or Pedi 1997-03-28 Completed [facility] of Dosage 00:00:00 [facility] MMR 1997-03-28 Completed [facility] 00:00:00 [facility] Hep B, Unspecified 1997-03-28 Completed [facility] Formulation 00:00:00 [facility] Hep B, Adol or Pedi 1997-03-28 Completed [facility] of Dosage 00:00:00 [facility] MMR 1997-03-28 Completed [facility] 00:00:00 [facility] Hep B, Unspecified 1997-03-28 Completed [facility] Formulation 00:00:00 [facility] Hep B, Adol or Pedi 1997-03-28 Completed [facility] of Dosage 00:00:00 [facility] MMR 1997-03-28 Completed [facility] 00:00:00 [facility] Hep B, Unspecified 1997-03-28 Completed [facility] Formulation 00:00:00 [facility] Hep B, Adol or Pedi 1997-03-28 Completed [facility] of Dosage 00:00:00 [facility] MMR 1997-03-28 Completed [facility] 00:00:00 [facility] Hep B, Unspecified 1997-03-28 Completed [facility] of Formulation 00:00:00 [facility] Hep B, Adol or Pedi 1997-03-28 Completed [facility] of Dosage 00:00:00 [facility] MMR 1997-03-28 Completed [facility] 00:00:00 [facility] Hep B, Unspecified 1997-03-28 Completed [facility] Formulation 00:00:00 [facility] Hep B, Adol or Pedi 1997-03-28 Completed [facility] Dosage 00:00:00 [facility] 1997-03-28 Completed [facility] of 00:00:00 [facility] DTP 1994-05-19 Completed [facility] of 00:00:00 [facility] Hib-HbOC 1994-05-19 Completed University of 00:00:00 [facility] 1994-05-19 Completed [facility] of 00:00:00 [facility] Poliovirus, Live, 1994-05-19 Completed [facility] of Oral, Trivalent 00:00:00 [facility] 1994-05-19 Completed [facility] of 00:00:00 [facility] Hib-HbOC 1994-05-19 Completed [facility] of 00:00:00 [facility] 1994-05-19 Completed [facility] of 00:00:00 [facility] Poliovirus, Live, 1994-05-19 Completed [facility] Oral, Trivalent 00:00:00 [facility] DTP 1994-05-19 Completed [facility] of 00:00:00 [facility] Hib-HbOC 1994-05-19 Completed [facility] of 00:00:00 [facility] MMR 1994-05-19 Completed [facility] of 00:00:00 [facility] Poliovirus, Live, 1994-05-19 Completed [facility] of Oral, Trivalent 00:00:00 [facility] DTP 1994-05-19 Completed [facility] of 00:00:00 [facility] Hib-HbOC 1994-05-19 Completed [facility] of 00:00:00 [facility] 1994-05-19 Completed [facility] of 00:00:00 [facility] Poliovirus, Live, 1994-05-19 Completed [facility] of Oral, Trivalent 00:00:00 [facility] 1994-05-19 Completed [facility] of 00:00:00 [facility] Hib-HbOC 1994-05-19 Completed [facility] of 00:00:00 [facility] MMR 1994-05-19 Completed [facility] 00:00:00 [facility] Poliovirus, Live, 1994-05-19 Completed [facility] of Oral, Trivalent 00:00:00 [facility] 1994-05-19 Completed [facility] of 00:00:00 [facility] Hib-HbOC 1994-05-19 Completed [facility] of 00:00:00 [facility] MMR 1994-05-19 Completed [facility] of 00:00:00 [facility] Poliovirus, Live, 1994-05-19 Completed [facility] of Oral, Trivalent 00:00:00 [facility] 1994-05-19 Completed [facility] of 00:00:00 [facility] Hib-HbOC 1994-05-19 Completed [facility] of 00:00:00 [facility] MMR 1994-05-19 Completed [facility] of 00:00:00 [facility] Poliovirus, Live, 1994-05-19 Completed [facility] of Oral, Trivalent 00:00:00 [facility] 1994-05-19 Completed [facility] of 00:00:00 [facility] Hib-HbOC 1994-05-19 Completed [facility] of 00:00:00 [facility] MMR 1994-05-19 Completed [facility] of 00:00:00 [facility] Poliovirus, Live, 1994-05-19 Completed [facility] of Oral, Trivalent 00:00:00 [facility] 1994-05-19 Completed [facility] of 00:00:00 [facility] Hib-HbOC 1994-05-19 Completed [facility] of 00:00:00 [facility] MMR 1994-05-19 Completed [facility] of 00:00:00 [facility] Poliovirus, Live, 1994-05-19 Completed [facility] of Oral, Trivalent 00:00:00 [facility] 1994-05-19 Completed [facility] of 00:00:00 [facility] Hib-HbOC 1994-05-19 Completed [facility] of 00:00:00 [facility] MMR 1994-05-19 Completed [facility] of 00:00:00 [facility] Poliovirus, Live, 1994-05-19 Completed [facility] Oral, Trivalent 00:00:[address] [facility] 1994-[facility] Com[facility] 00:00:00 [facility] Hib-HbOC 1994-05-19 Completed [facility] of 00:00:00 [facility] MMR 1994-05-19 Completed [facility] of 00:00:00 [facility] Poliovirus, Live, 1994-05-19 Completed [facility] Oral, Trivalent 00:00:[address] [facility] 1994[facility] Com[facility] 00:00:00 [facility] Hib-HbOC 1994-05-19 Completed [facility] of 00:00:00 [facility] MMR 1994-05-19 Completed [facility] of 00:00:00 [facility] Poliovirus, Live, 1994-05-19 Completed [facility] of Oral, Trivalent 00:00:00 [facility] 1994-05-19 Completed [facility] of 00:00:00 [facility] Hib-HbOC 1994-05-19 Completed [facility] of 00:00:00 [facility] MMR 1994-05-19 Completed [facility] of 00:00:00 [facility] Poliovirus, Live, 1994-05-19 Completed [facility] Oral, Trivalent 00:00:[address] [facility] 1994[facility] Completed [facility] 00:00:00 [facility] Hib-HbOC 1994-05-19 Completed [facility] of 00:00:00 [facility] MMR 1994-05-19 Completed [facility] of 00:00:00 [facility] Poliovirus, Live, 1994-05-19 Completed [facility] of Oral, Trivalent 00:00:00 [facility] DTP 1994-05-19 Completed [facility] of 00:00:00 [facility] Hib-HbOC 1994-05-19 Completed [facility] of 00:00:00 [facility] MMR 1994-05-19 Completed [facility] of 00:00:00 [facility] Poliovirus, Live, 1994-05-19 Completed [facility] of Oral, Trivalent 00:00:00 [facility] Heamophilus Influenza 1994-05-09 Completed Uni vers[facility] of B 00:00:00 [facility] Heamophilus Influenza 1994-05-09 Completed [facility] vers[facility] of B 00:00:00 [facility] Heamophilus Influenza 1994-05-09 Completed [facility] vers[facility] of B 00:00:00 [facility] Heamophilus Influenza 1994-05-09 Completed [facility] vers[facility] of B 00:00:00 [facility] Heamophilus Influenza 1994-05-09 Completed Uni vers[facility] of B 00:00:00 [facility] Heamophilus Influenza 1994-05-09 Completed [facility] vers[facility] of B 00:00:00 [facility] Heamophilus Influenza 1994-05-09 Completed Uni vers[facility] of B 00:00:00 [facility] Heamophilus Influenza 1994-05-09 Completed Uni vers[facility] of B 00:00:00 [facility] Heamophilus Influenza 1994-05-09 Completed [facility] vers[facility] of B 00:00:00 [facility] Heamophilus Influenza 1994-05-09 Completed Uni vers[facility] of B 00:00:00 [facility] Heamophilus Influenza 1994-05-09 Completed Uni vers[facility] of B 00:00:00 [facility] Heamophilus Influenza 1994-05-09 Completed Uni vers[facility] of B 00:00:00 [facility] Heamophilus Influenza 1994-05-09 Completed Uni vers[facility] of B 00:00:00 [facility] Heamophilus Influenza 1994-05-09 Completed Uni vers[facility] of B 00:00:00 [facility] Heamophilus Influenza 1994-05-09 Completed Uni vers[facility] of B 00:00:00 [facility] Hep B, Unspecified 1993-04-29 Completed [facility] of Formulation 00:00:00 [facility] Hep B, Adol or Pedi 1993-04-29 Completed [facility]ive rsity of Dosage 00:00:00 [facility] Hep B, Unspecified 1993-04-29 Completed [facility] of Formulation 00:00:00 [facility] Hep B, Adol or Pedi 1993-04-29 Completed [facility] rs[facility] of Dosage 00:00:00 [facility] Hep B, Unspecified 1993-04-29 Completed [facility] of Formulation 00:00:00 [facility] Hep B, Adol or Pedi 1993-04-29 Completed [facility] rs[facility] of Dosage 00:00:00 [facility] Hep B, Unspecified 1993-04-29 Completed [facility] of Formulation 00:00:00 [facility] Hep B, Adol or Pedi 1993-04-29 Completed [facility] rs[facility] of Dosage 00:00:00 [facility] Hep B, Unspecified 1993-04-29 Completed [facility] of Formulation 00:00:00 [facility] Hep B, Adol or Pedi 1993-04-29 Completed [facility] rs[facility] of Dosage 00:00:00 [facility] Hep B, Unspecified 1993-04-29 Completed [facility] of Formulation 00:00:00 [facility] Hep B, Adol or Pedi 1993-04-29 Completed [facility] rs[facility] of Dosage 00:00:00 [facility] Hep B, Unspecified 1993-04-29 Completed [facility] of Formulation 00:00:00 [facility] Hep B, Adol or Pedi 1993-04-29 Completed [facility] rs[facility] of Dosage 00:00:00 [facility] Hep B, Unspecified 1993-04-29 Completed [facility] of Formulation 00:00:00 [facility] Hep B, Adol or Pedi 1993-04-29 Completed [facility] rs[facility] of Dosage 00:00:00 [facility] Hep B, Unspecified 1993-04-29 Completed [facility] of Formulation 00:00:00 [facility] Hep B, Adol or Pedi 1993-04-29 Completed [facility] rs[facility] of Dosage 00:00:00 [facility] Hep B, Unspecified 1993-04-29 Completed [facility] of Formulation 00:00:00 [facility] Hep B, Adol or Pedi 1993-04-29 Completed [facility] rs[facility] of Dosage 00:00:00 [facility] Hep B, Unspecified 1993-04-29 Completed [facility] of Formulation 00:00:00 [facility] Hep B, Adol or Pedi 1993-04-29 Completed [facility] rs[facility] of Dosage 00:00:00 [facility] Hep B, Unspecified 1993-04-29 Completed [facility]ity of Formulation 00:00:00 [facility] Hep B, Adol or Pedi 1993-04-29 Completed [facility] rs[facility] of Dosage 00:00:00 [facility] Hep B, Unspecified 1993-04-29 Completed [facility] of Formulation 00:00:00 [facility] Hep B, Adol or Pedi 1993-04-29 Completed [facility] rs[facility] of Dosage 00:00:00 [facility] Hep B, Unspecified 1993-04-29 Completed [facility] of Formulation 00:00:00 [facility] Hep B, Adol or Pedi 1993-04-29 Completed [facility] rs[facility] of Dosage 00:00:00 [facility] Hep B, Unspecified 1993-04-29 Completed [facility] of Formulation 00:00:00 [facility] Hep B, Adol or Pedi 1993-04-29 Completed [facility] rs[facility] of Dosage 00:00:00 [facility] DTP 1992 Completed [facility] 00:00:00 [facility] Heamophilus Influenza 1992 Completed [facility] B 00:00:00 [facility] Hib-HbOC 1992 Completed [facility] 00:00:00 [facility] DTP 1992 Completed [facility] 00:00:00 [facility] Heamophilus Influenza 1992 Completed [facility] B 00:00:00 [facility] Hib-HbOC 1992 Completed [facility] 00:00:00 [facility] DTP 1992 Completed [facility] 00:00:00 [facility] Heamophilus Influenza 1992 Completed [facility] B 00:00:00 [facility] Hib-HbOC 1992 Completed [facility] 00:00:00 [facility] DTP 1992 Completed [facility] 00:00:00 [facility] Heamophilus Influenza 1992 Completed [facility] B 00:00:00 [facility] Hib-HbOC 1992 Completed [facility] 00:00:00 [facility] DTP 1992 Completed [facility] 00:00:00 [facility] Heamophilus Influenza 1992 Completed [facility] B 00:00:00 [facility] Hib-HbOC 1992 Completed [facility] 00:00:00 [facility] DTP 1992 Completed [facility] 00:00:00 [facility] Heamophilus Influenza 1992 Completed [facility] B 00:00:00 [facility] Hib-HbOC 1992 Completed [facility] 00:00:00 [facility] DTP 1992 Completed [facility] 00:00:00 [facility] Heamophilus Influenza 1992 Completed [facility] B 00:00:00 [facility] Hib-HbOC 1992 Completed [facility] 00:00:00 [facility] DTP 1992 Completed [facility] 00:00:00 [facility] Heamophilus Influenza 1992 Completed [facility] B 00:00:00 [facility] Hib-HbOC 1992 Completed [facility] of 00:00:00 [facility] DTP 1992 Completed [facility] 00:00:00 [facility] Heamophilus Influenza 1992 Completed [facility] B 00:00:00 [facility] Hib-HbOC 1992 Completed [facility] 00:00:00 [facility] DTP 1992 Completed [facility] 00:00:00 [facility] Heamophilus Influenza 1992 Completed [facility] B 00:00:00 [facility] Hib-HbOC 1992 Completed [facility] 00:00:00 [facility] DTP 1992 Completed [facility] 00:00:00 [facility] Heamophilus Influenza 1992 Completed [facility] B 00:00:00 [facility] Hib-HbOC 1992 Completed [facility] 00:00:00 [facility] DTP 1992 Completed [facility] 00:00:00 [facility] Heamophilus Influenza 1992 Completed [facility] B 00:00:00 [facility] Hib-HbOC 1992 Completed [facility] 00:00:00 [facility] DTP 1992 Completed [facility] 00:00:00 [facility] Heamophilus Influenza 1992 Completed [facility] B 00:00:00 [facility] Hib-HbOC 1992 Completed [facility] 00:00:00 [facility] DTP 1992 Completed [facility] 00:00:00 [facility] Heamophilus Influenza 1992 Completed [facility] B 00:00:00 [facility] Hib-HbOC 1992 Completed [facility] 00:00:00 [facility] DTP 1992 Completed [facility] 00:00:00 [facility] Heamophilus Influenza 1992 Completed [facility] B 00:00:00 [facility] Hib-HbOC 1992 Completed [facility] 00:00:00 [facility] DTP 1992 Completed [facility] 00:00:00 [facility] Heamophilus Influenza 1992 Completed [facility] B 00:00:00 [facility] Hib-HbOC 1992 Completed [facility] 00:00:00 [facility] Poliovirus, Live, 1992 Completed [facility] of Oral, Trivalent 00:00:00 [facility] 1992 Completed [facility] 00:00:00 [facility] Heamophilus Influenza 1992 Completed [facility] B 00:00:00 [facility] Hib-HbOC 1992 Completed [facility] 00:00:00 [facility] Poliovirus, Live, 1992 Completed [facility] of Oral, Trivalent 00:00:00 [facility] 1992 Completed [facility] 00:00:00 [facility] Heamophilus Influenza 1992 Completed [facility] B 00:00:00 [facility] Hib-HbOC 1992 Completed [facility] 00:00:00 [facility] Poliovirus, Live, 1992 Completed [facility] of Oral, Trivalent 00:00:00 [facility] 1992 Completed [facility] 00:00:00 [facility] Heamophilus Influenza 1992 Completed [facility] B 00:00:00 [facility] Hib-HbOC 1992 Completed [facility] 00:00:00 [facility] Poliovirus, Live, 1992 Completed [facility] of Oral, Trivalent 00:00:00 [facility] 1992 Completed [facility] 00:00:00 [facility] Heamophilus Influenza 1992 Completed [facility] B 00:00:00 [facility] Hib-HbOC 1992 Completed [facility] 00:00:00 [facility] Poliovirus, Live, 1992 Completed [facility] of Oral, Trivalent 00:00:00 [facility] 1992 Completed [facility] 00:00:00 [facility] Heamophilus Influenza 1992 Completed [facility] B 00:00:00 [facility] Hib-HbOC 1992 Completed [facility] 00:00:00 [facility] Poliovirus, Live, 1992 Completed [facility] of Oral, Trivalent 00:00:00 [facility] DTP 1992 Completed [facility] 00:00:00 [facility] Heamophilus Influenza 1992 Completed [facility] B 00:00:00 [facility] Hib-HbOC 1992 Completed [facility] 00:00:00 [facility] Poliovirus, Live, 1992 Completed [facility] of Oral, Trivalent 00:00:00 [facility] DTP 1992 Completed [facility] 00:00:00 [facility] Heamophilus Influenza 1992 Completed [facility] B 00:00:00 [facility] Hib-HbOC 1992 Completed [facility] [facility] Poliovirus, Live, 1992 Completed [facility] ity of Oral, Trivalent 00:00:00 [facility] DTP 1992 Completed [facility] 00:00:00 [facility] Heamophilus Influenza 1992 Completed Uni versity of B 00:00:00 [facility] Hib-HbOC 1992 Completed [facility] 00:00:00 [facility] Poliovirus, Live, 1992 Completed [facility] ity of Oral, Trivalent 00:00:00 [facility] DTP 1992 Completed [facility] 00:00:00 [facility] Heamophilus Influenza 1992 Completed Uni versity of B 00:00:00 [facility] Hib-HbOC 1992 Completed [facility] 00:00:00 [facility] Poliovirus, Live, 1992 Completed Univers ity of Oral, Trivalent 00:00:00 [facility] DTP 1992 Completed [facility] 00:00:00 [facility] Heamophilus Influenza 1992 Completed Uni versity of B 00:00:00 [facility] Hib-HbOC 1992 Completed [facility] 00:00:00 [facility] Poliovirus, Live, 1992 Completed Univers ity of Oral, Trivalent 00:00:00 [facility] DTP 1992 Completed [facility] 00:00:00 [facility] Heamophilus Influenza 1992 Completed Uni versity of B 00:00:00 [facility] Hib-HbOC 1992 Completed [facility] 00:00:00 [facility] Poliovirus, Live, 1992 Completed [facility] ity of Oral, Trivalent 00:00:00 [facility] 1992 Completed [facility] 00:00:00 [facility] Heamophilus Influenza 1992 Completed Uni versity of B 00:00:00 [facility] Hib-HbOC 1992 Completed [facility] 00:00:00 [facility] Poliovirus, Live, 1992 Completed [facility] ity of Oral, Trivalent 00:00:00 [facility] 1992 Completed [facility] 00:00:00 [facility] Heamophilus Influenza 1992 Completed Uni versity of B 00:00:00 [facility] Hib-HbOC 1992 Completed [facility] 00:00:00 [facility] Poliovirus, Live, 1992 Completed [facility] ity of Oral, Trivalent 00:00:00 [facility] 1992 Completed [facility] 00:00:00 [facility] Heamophilus Influenza 1992 Completed Uni versity of B 00:00:00 [facility] Hib-HbOC 1992 Completed [facility] 00:00:00 [facility] Poliovirus, Live, 1992 Completed Univers ity of Oral, Trivalent 00:00:00 [facility] 1992 Completed [facility] 00:00:00 [facility] Heamophilus Influenza 1992 Completed Uni versity of B 00:00:00 [facility] Hib-HbOC 1992 Completed [facility] 00:00:00 [facility] Poliovirus, Live, 1992 Completed [facility] ity of Oral, Trivalent 00:00:00 [facility] 1992 Completed [facility] 00:00:00 [facility] Heamophilus Influenza 1992 Completed Uni versity of B 00:00:00 [facility] Hib-HbOC 1992 Completed [facility] 00:00:00 [facility] Poliovirus, Live, 1992 Completed [facility] ity of Oral, Trivalent 00:00:00 [facility] 1992 Completed [facility] 00:00:00 [facility] Heamophilus Influenza 1992 Completed Uni versity of B 00:00:00 [facility] Hib-HbOC 1992 Completed [facility] 00:00:00 [facility] Poliovirus, Live, 1992 Completed Univers ity of Oral, Trivalent 00:00:00 [facility] DT 1992 Completed [facility] 00:00:00 [facility] Heamophilus Influenza 1992 Completed Uni versity of B 00:00:00 [facility] Hib-HbOC 1992 Completed [facility] 00:00:00 [facility] Poliovirus, Live, 1992 Completed Univers ity of Oral, Trivalent 00:00:00 [facility] 1992 Completed [facility] 00:00:00 [facility] Heamophilus Influenza 1992 Completed Uni versity of B 00:00:00 [facility] Hib-HbOC 1992 Completed [facility] 00:00:00 [facility] Poliovirus, Live, 1992 Completed [facility] ity of Oral, Trivalent 00:00:00 [facility] 1992 Completed [facility] 00:00:00 [facility] Heamophilus Influenza 1992 Completed Uni versity of B 00:00:00 [facility] Hib-HbOC 1992 Completed [facility] 00:00:00 [facility] Poliovirus, Live, 1992 Completed [facility] ity of Oral, Trivalent 00:00:00 [facility] 1992 Completed [facility] 00:00:00 [facility] Heamophilus Influenza 1992 Completed Uni versity of B 00:00:00 [facility] Hib-HbOC 1992 Completed [facility] 00:00:00 [facility] Poliovirus, Live, 1992 Completed [facility] ity of Oral, Trivalent 00:00:00 [facility] 1992 Completed [facility] 00:00:00 [facility] Heamophilus Influenza 1992 Completed Uni versity of B 00:00:00 [facility] Hib-HbOC 1992 Completed [facility] 00:00:00 [facility] Poliovirus, Live, 1992 Completed [facility] ity of Oral, Trivalent 00:00:00 [facility] 1992 Completed [facility] 00:00:00 [facility] Heamophilus Influenza 1992 Completed Uni versity of B 00:00:00 [facility] Hib-HbOC 1992 Completed [facility] 00:00:00 [facility] Poliovirus, Live, 1992 Completed [facility] ity of Oral, Trivalent 00:00:00 [facility] 1992 Completed [facility] 00:00:00 [facility] Heamophilus Influenza 1992 Completed Uni versity of B 00:00:00 [facility] Hib-HbOC 1992 Completed [facility] 00:00:00 [facility] Poliovirus, Live, 1992 Completed [facility] ity of Oral, Trivalent 00:00:00 [facility] 1992 Completed [facility] 00:00:00 [facility] Heamophilus Influenza 1992 Completed Uni versity of B 00:00:00 [facility] Hib-HbOC 1992 Completed [facility] 00:00:00 [facility] Poliovirus, Live, 1992 Completed Univers ity of Oral, Trivalent 00:00:00 [facility] 1992 Completed [facility] 00:00:00 [facility] Heamophilus Influenza 1992 Completed Uni versity of B 00:00:00 [facility] Hib-HbOC 1992 Completed [facility] 00:00:00 [facility] Poliovirus, Live, 1992 Completed Univers ity of Oral, Trivalent 00:00:00 [facility] 1992 Completed [facility] 00:00:00 [facility] Heamophilus Influenza 1992 Completed Uni versity of B 00:00:00 [facility] Hib-HbOC 1992 Completed [facility] 00:00:00 [facility] Poliovirus, Live, 1992 Completed Univers ity of Oral, Trivalent 00:00:00 [facility] DTP 1992 Completed [facility] 00:00:00 [facility] Heamophilus Influenza 1992 Completed Uni versity of B 00:00:00 [facility] Hib-HbOC 1992 Completed [facility] 00:00:00 [facility] Poliovirus, Live, 1992 Completed Univers ity of Oral, Trivalent 00:00:00 [facility] DTP 1992 Completed [facility] 00:00:00 [facility] Heamophilus Influenza 1992 Completed Uni versity of B 00:00:00 [facility] Hib-HbOC 1992 Completed [facility] 00:00:00 [facility] Poliovirus, Live, 1992 Completed Univers ity of Oral, Trivalent 00:00:00 [facility] Vital Signs Vital Name Observation Time Observation Value Comments Source Systolic blood 2022-12-31 128 mm[Hg] University of pressure 05:09:00 [facility] Diastolic blood 2022-12-31 79 mm[Hg] University o f pressure 05:09:00 [facility] Heart rate 2022-12-31 71 /min University of 05:09:00 [facility] Body temperature 2022-12-31 36.78 Alisha University of 05:09:00 [facility] Respiratory rate 2022-12-31 16 /min University of 05:09:00 [facility] Body height 2022-12-31 160 cm University of 05:09:00 [facility] Body weight 2022-12-31 67.586 kg University of 05:09:00 [facility] BMI 2022-12-31 26.39 kg/m2 University of 05:09:00 [facility] Oxygen saturation 2022-12-31 100 /min [facility] in Arterial blood 05:09:00 [facility] by Pulse oximetry [place] Systolic blood 2022-12-22 132 mm[Hg] University of pressure 13:18:00 [facility] Diastolic blood 2022-12-22 92 mm[Hg] University o f pressure 13:18:00 [facility] Heart rate 2022-12-22 78 /min University of 13:18:00 [facility] Respiratory rate 2022-12-22 18 /min University of 13:18:00 [facility] Body height 2022-12-22 160 cm University of 13:18:00 [facility] Body weight 2022-12-22 69.4 kg University of 13:18:00 [facility] BMI 2022-12-22 27.10 kg/m2 University of 13:18:00 [facility] Systolic blood 2022-12-19 102 mm[Hg] University of pressure 10:00:00 [facility] Diastolic blood 2022-12-19 60 mm[Hg] University o f pressure 10:00:00 [facility] Heart rate 2022-12-19 85 /min University of 10:00:00 [facility] Respiratory rate 2022-12-19 13 /min University of 10:00:00 [facility] Oxygen saturation 2022-12-19 96 /min University of in Arterial blood 10:00:00 [facility] shanice by Pulse oximetry Branch Body temperature 2022-12-19 36.28 Alisha University of 07:30:00 [facility] Body height 2022-12-19 160 cm University of 07:30:00 [facility] Body weight 2022-12-19 67.132 kg University of 07:30:00 [facility] BMI 2022-12-19 26.22 kg/m2 University of 07:30:00 [facility] Systolic blood 2022-12-15 125 mm[Hg] University of pressure 15:48:00 [facility] Diastolic blood 2022-12-15 77 mm[Hg] University o f pressure 15:48:00 [facility] Heart rate 2022-12-15 75 /min University of 15:48:00 [facility] Body height 2022-12-15 160 cm University of 15:48:00 [facility] Body weight 2022-12-15 68.448 kg University of 15:48:00 [facility] BMI 2022-12-15 26.73 kg/m2 University of 15:48:00 [facility] Oxygen saturation 2022-12-15 98 /min University of in Arterial blood 15:48:00 [facility] shanice by Pulse oximetry Branch Systolic blood 2022-12-14 132 mm[Hg] University of pressure 08:04:00 [facility] Diastolic blood 2022-12-14 87 mm[Hg] University o f pressure 08:04:00 [facility] Heart rate 2022-12-14 83 /min University of 08:04:00 [facility] Body temperature 2022-12-14 36.67 Alisha University of 08:04: [facility] Respiratory rate 2022-12-14 20 /min University of 08:04:00 [facility] Body height 2022-12-14 160 cm University of 08:04:00 [facility] Body weight 2022-12-14 67.132 kg University of 08:04: [facility] BMI 2022-12-14 26.22 kg/m2 University of 08:04:00 [facility] Oxygen saturation 2022-12-14 97 /min University of in Arterial blood 08:04: [facility] by Pulse oximetry Branch Systolic blood 2022-11-03 143 mm[Hg] University of pressure 17:45:00 [facility] [place] [facility] Diastolic blood 2022-11-03 89 mm[Hg] University o f pressure 17:45:00 [facility] Heart rate 2022-11-03 89 /min University of 17:45:00 [facility] Respiratory rate 2022-11-03 16 /min University of 17:45:00 [facility] Oxygen saturation 2022-11-03 99 /min [place] [facility] in Arterial blood 17:45:00 [facility] by Pulse oximetry Branch Body temperature 2022-11-03 36.61 Alisha University of 14:13:00 [facility] Body height 2022-11-03 160 cm University of 14:13:00 [facility] Body weight 2022-11-03 68.04 kg University of 14:13:00 [facility] BMI 2022-11-03 26.57 kg/m2 University of 14::00 [facility] Systolic blood 2022-10-28 115 mm[Hg] University of pressure 21:02:00 [facility] Diastolic blood 2022-10-28 69 mm[Hg] University o f pressure 21:02:00 [facility] Heart rate 2022-10-28 93 /min University of 21:00 [facility] Body temperature 2022-10-28 36.89 Alisha University of 21:02:00 [facility] Body height 2022-10-28 160 cm University of 21::00 [facility] Body weight 2022-10-28 70.308 kg University of 21:02: [facility] BMI 2022-10-28 27.46 kg/m2 University of 21:02:00 [facility] Oxygen saturation 2022-10-28 100 /min University of in Arterial blood 21:02:00 [place] [facility] Pulse oximetry [facility] Systolic blood 2022-10-13 133 mm[Hg] University of pressure 07:58:00 [facility] Diastolic blood 2022-10-13 72 mm[Hg] University o f pressure 07:58:00 [facility] Heart rate 2022-10-13 109 /min University of 07:58:00 [facility] Body temperature 2022-10-13 36.78 Alisha University of 07:58:00 [facility] Respiratory rate 2022-10-13 16 /min University of 07:58:00 [facility] Body weight 2022-10-13 67.132 kg University of 07:58:00 [facility] BMI 2022-10-13 26.22 kg/m2 University of 07:58:00 [facility] Oxygen saturation 2022-10-13 99 /min University of in Arterial blood 07:58:00 [facility] shanice by Pulse oximetry Branch Systolic blood 2022-10-10 120 mm[Hg] University of pressure 00:44:00 [facility] Diastolic blood 2022-10-10 82 mm[Hg] University o f pressure 00:44:00 [facility] Heart rate 2022-10-10 110 /min University of 00:44:00 [facility] Body temperature 2022-10-10 36.33 Alisha University of 00:44:00 [facility] Respiratory rate 2022-10-10 18 /min University of 00:44:00 [facility] Body height 2022-10-10 160 cm University of 00:44:00 [facility] Body weight 2022-10-10 67.132 kg University of 00:44:00 [facility] BMI 2022-10-10 26.22 kg/m2 University of 00:44:00 [facility] Oxygen saturation 2022-10-10 99 /min University of in Arterial blood 00:44:00 [place] [facility] by Pulse oximetry [facility] Systolic blood 2022-09-10 165 mm[Hg] University of pressure 00:13:00 [facility] Diastolic blood 2022-09-10 99 mm[Hg] University o f pressure 00:13:00 [facility] Heart rate 2022-09-10 125 /min University of 00:13:00 [facility] Body temperature 2022-09-10 36.61 Alisha University 00:13:00 [facility] Respiratory rate 2022-09-10 20 /min University of 00:13:00 [facility] Body weight 2022-09-10 65.772 kg University of 00:13:00 [facility] BMI 2022-09-10 25.69 kg/m2 University 00:13:00 [facility] Oxygen saturation 2022-09-10 99 /min University of in Arterial blood 00:13:00 [facility] by Pulse oximetry Branch Systolic blood 2022-08-18 134 mm[Hg] University of pressure 22:36:00 [facility] Diastolic blood 2022-08-18 86 mm[Hg] University o f pressure 22:36:00 [facility] Heart rate 2022-08-18 100 /min University 22:36:00 [facility] Body temperature 2022-08-18 37.11 Alisha University 22:36:00 [facility] Respiratory rate 2022-08-18 20 /min University 22:36:00 [facility] Body height 2022-08-18 160 cm University of 22:36:00 [facility] Body weight 2022-08-18 67.132 kg University of 22:36:00 [facility] BMI 2022-08-18 26.22 kg/m2 University of 22:36:00 [facility] Oxygen saturation 2022-08-18 100 /min [place] [facility] in Arterial blood 22:36:00 [facility] by Pulse oximetry Branch Systolic blood 2022-01-20 123 mm[Hg] [facility] pressure 18:11:00 [facility] Diastolic blood 2022-01-20 85 mm[Hg] [facility] pressure 18:11:00 Hospital Heart rate 2022-01-20 88 /min [facility] 18:11:00 Hospital Body temperature 2022-01-20 36.28 Alisha [facility] 18:11:00 Hospital Respiratory rate 2022-01-20 20 /min [facility] 18:11:00 [facility] Body height 2022-01-20 160 cm [facility] 18:11:00 Hospital Body weight 2022-01-20 66.225 kg [facility] 18:11:00 [facility] BMI 2022-01-20 25.86 kg/m2 [facility] 18:11:00 Hospital Oxygen saturation 2022-01-20 99 /min [facility] in Arterial blood 18:11:00 Hospital by Pulse [...] BP Systolic 2019-06-28 130 mm[Hg] Location: [facility]; [facility] 16:14:00 Position: Sitting BP Diastolic 2019-06-28 82 mm[Hg] Location: [facility]; [facility] 16:14:00 Position: Sitting Height 2019-06-28 67 [in_us] [facility] 16:14:00 Weight 2019-06-28 156 [lb_av] [facility] 16:14:00 Body Mass Index 2019-06-28 24.43 kg/m2 [facility] Calculated 16:14:00 Heart Rate 2019-06-28 114 /min [facility] 16:14:00 BP Systolic 2018-09-07 124 mm[Hg] [facility] 16:12:00 BP Diastolic 2018-09-07 88 mm[Hg] [facility] 16:12:00 Height 2018-09-07 67 [in_us] [facility] 16:12:00 Weight 2018-09-07 159 [lb_av] [facility] 16:12:00 Body Mass Index 2018-09-07 24.9 kg/m2 [facility] Calculated 16:12:00 Heart Rate 2018-09-07 109 /min [facility] 16:12:00 Procedures Procedure Date / Time Performing Clinician Source Performed CONSENT/REFUSAL FOR 2022-12-31 05:04:15 [facility] Name [facility] CT ANGIOGRAPHY 2022-12-30 17:15:00 Amrit Ma [facility] CORONARIES WITHOUT Medical Branc h CARDIAC CALCIUM SCORING HB CREATININE 2022-12-30 16:24:00 Amrit Ma [facility] SERUM/BLOOD FOR IMAGING Medical Branch CONSENT/REFUSAL FOR 2022-12-30 15:17:01 Doctor Unassigned, [facility] Name [facility] Branch EXTERNAL PROVIDER 2022-12-29 05:01:00 Doctor Unassigned, No Univ [facility] RECORDS Name Medical Branch CT ANGIOGRAM CHEST 2022-12-19 09:28:16 Miladys Medina [facility] Medical Branch TROPONIN I 2022-12-19 08:40:00 Miladys Medina [facility] D-DIMER 2022-12-19 08:40:00 [facility]US[facility] FOR 2022-12-19 07:30:10 Doctor Unassigned, No [facility] [place] DIAGNOSIS AND TREATMENT Name [facility] D-DIMER 2022-12-14 10:47:00 Miladys Medina [facility] TROPONIN I 2022-12-14 10:16:00 Miladys Medina [facility] LIPASE 2022-12-14 08:31:00 Miladys Medina [facility] TROPONIN I 2022-12-14 08:31:00 Miladys Medina [facility] COMP. METABOLIC PANEL 2022-12-14 08:31:00 Miladys Medina [facility] ([id number]) [facility] CBC WITH DIFF 2022-12-14 08:31:00 Miladys Medina [facility] THYROID STIMULATING 2022-12-14 08:31:00 Amrit Ma [facility] HORMONE [facility] NOTICE OF PRIVACY 2022-12-14 07:50:02 Doctor Unassigned, No [facility] CONSENT/REFUSAL FOR 2022-12-14 07:49:31 Doctor Unassigned, [facility] TREATMENT [facility] URINALYSIS 2022-11-03 15:27:00 Gaurang Dotson [facility] URINE DRUG (IMMUNOASSAY) 2022-11-03 15:27:00 Gaurang Dotson [facility] SCREEN W/O REFLEX TEST, SERUM 2022-11-03 14:38:00 Gaurang Dotson [facility] COMP. METABOLIC PANEL 2022-11-03 14:38:00 Gaurang Dotson [facility] ([id number]) [facility] CBC WITH DIFF 2022-11-03 14:38:00 Gaurang Dotson [facility] D-DIMER 2022-11-03 14:38:00 Gaurang Dotson [facility] CONSENT/REFUSAL FOR 2022-11-03 14:04:36 Doctor Unassigned, No [facility] [place] DIAGNOSIS AND TREATMENT Name Medical Branch CONSENT/REFUSAL FOR 2022-10-28 20:34:23 Doctor Unassigned, No [facility] [place] DIAGNOSIS AND TREATMENT Name [facility] CONSENT/REFUSAL FOR 2022-10-13 07:49:25 Doctor Unassigned, No [facility] [place] DIAGNOSIS AND TREATMENT Name [facility] CONSENT/REFUSAL FOR 2022-10-10 00:16:57 Doctor Unassigned, No [facility] [place] DIAGNOSIS AND TREATMENT Name [facility] Branch MRI LUMBAR SPINE WO 2022-10-07 00:35:00 Sathya [facility] CONTRAST MRI CERVICAL SPINE WO 2022-10-07 00:22:00 [facility] CONTRAST CONSENT/REFUSAL FOR 2022-09-10 00:07:30 Doctor Unassigned, No [facility] [place] DIAGNOSIS AND TREATMENT Name Medical Branch CONSENT/REFUSAL FOR 2022-08-18 22:20:24 Doctor Unassigned, No [facility] [place] DIAGNOSIS AND TREATMENT Name Medical Branch CT SPINE EXTERNAL STUDY 2021-11-28 20:02:[address] [facility] CT SPINE EXTERNAL STUDY 2021-11-28 19:57:[address] [facility] [address] SPINE EXTERNAL STUDY 2021-11-28 19:52:18 [facility] REFERRAL- 2021-11-21 05:01:00 Doctor Unassigned, No [facility] [place] REQUEST/RESPONSE Name Medical Branch MRI SPINE EXTERNAL STUDY 2021-10-09 18:17:21 [facility] [QL] CBC (INCLUDES 2020-02-16 00:00:00 [facility]FF[facility]PLT[facility] EMB 2020-02-14 00:00:00 [facility] - Affirm VPIII 2020-02-14 00:00:00 [facility] [...] [facility] Transvaginal and Pelvic Doppler [id number] [facility] of [facility] surgery [facility] of [facility] section low transverse Plan of Care Planned Activity Planned Date Details Comments Source Future Scheduled 2022-12-30 Pneumococcal Vaccine: [facility] Test 10:15:19 Pediatrics (0 to 5 Years) and At-Risk Patients (6 to 64 Years) (1 - PCV) [code = Pneumococcal Vaccine: Pediatrics (0 to 5 Years) and At-Risk Patients (6 to 64 Years) (1 - PCV)] Future Scheduled 2022-12-30 Hepatitis C screening [facility] Test 10:15:19 (procedure) [code = 202038908] Future Scheduled 2022-12-30 Screening for [facility] Test 10:15:19 malignant neoplasm of cervix (procedure) [code = 242360594] Future Scheduled 2022-12-30 COVID-19 VACCINE (3 - [facility] Test 10:15:19 Booster for Pfizer series) [code = COVID-19 VACCINE (3 - Booster for Pfizer series)] Future Scheduled 2022-12-30 [facility] 10:15:19 [code = INFLUENZA VACCINE] Future Scheduled 2022-08-02 Pneumococcal Vaccine: [facility] Test 11:23:36 Pediatrics (0 to 5 Years) and At-Risk Patients (6 to 64 Years) (1 - PCV) [code = Pneumococcal Vaccine: Pediatrics (0 to 5 Years) and At-Risk Patients (6 to 64 Years) (1 - PCV)] Future Scheduled 2022-08-02 [facility] Test 11:23:36 (procedure) [code = 755423024] Future Scheduled 2022-08-02 Screening for [facility] Test 11:23:36 malignant neoplasm of cervix (procedure) [code = 382114931] Future Scheduled 2022-08-02 COVID-19 VACCINE (3 - [facility] Test 11:23:36 Booster for Pfizer series) [code = COVID-19 VACCINE (3 - Booster for Pfizer series)] Future Scheduled 2022-08-02 [facility]ACCINE [facility] 11:23:36 [code = INFLUENZA VACCINE] Future Scheduled 2022-07-24 Pneumococcal Vaccine: [facility] Test 21:51:51 Pediatrics (0 to 5 Years) and At-Risk Patients (6 to 64 Years) (1 - PCV) [code = Pneumococcal Vaccine: Pediatrics (0 to 5 Years) and At-Risk Patients (6 to 64 Years) (1 - PCV)] Future Scheduled 2022-07-24 Hepatitis C screening [facility] Test 21:51:51 (procedure) [code = 763098967] Future Scheduled 2022-07-24 Screening for [facility] Test 21:51:51 malignant neoplasm of cervix (procedure) [code = [id number]] Future Scheduled 2022-07-24 COVID-19 VACCINE (3 - [facility] [facility] Test 21:51:51 Booster for Pfizer series) [code = COVID-19 VACCINE (3 - Booster for Pfizer series)] Future Scheduled 2022-07-24 INFLUENZA VACCINE Method [facility] Test 21:51:51 [code = INFLUENZA VACCINE] Future Scheduled 2022-07-15 Pneumococcal Vaccine: [facility] Test 15:03:03 Pediatrics (0 to 5 Years) and At-Risk Patients (6 to 64 Years) (1 - PCV) [code = Pneumococcal Vaccine: Pediatrics (0 to 5 Years) and At-Risk Patients (6 to 64 Years) (1 - PCV)] Future Scheduled 2022-07-15 Hepatitis C screening [facility] Test 15:03:03 (procedure) [code = 835972886] Future Scheduled 2022-07-15 [facility] Test 15:03:03 malignant neoplasm of cervix (procedure) [code = 777459723] Future Scheduled 2022-07-15 COVID-19 VACCINE (3 - [facility] 15:03:03 Booster for Pfizer series) [code = COVID-19 VACCINE (3 - Booster for Pfizer series)] Future Scheduled 2022-07-15 INFLUENZA VACCINE [facility] Test 15:03:03 [code = INFLUENZA VACCINE] Future Scheduled 2022 Pneumococcal Vaccine: [facility] Test 09:54:03 Pediatrics (0 to 5 Years) and At-Risk Patients (6 to 64 Years) (1 - PCV) [code = Pneumococcal Vaccine: Pediatrics (0 to 5 Years) and At-Risk Patients (6 to 64 Years) (1 - PCV)] Future Scheduled 2022 Hepatitis C screening [facility] Test 09:54:03 (procedure) [code = 842391002] Future Scheduled 2022 Screening for [facility] Test 09:54:03 malignant neoplasm of cervix (procedure) [code = 407751374] Future Scheduled 2022 COVID-19 VACCINE (3 - [facility] Test 09:54:03 Booster for Pfizer series) [code = COVID-19 VACCINE (3 - Booster for Pfizer series)] Future Scheduled 2022 INFLUENZA VACCINE [facility] Test 09:54:03 [code = INFLUENZA VACCINE] Encounters Start End Encounter Admission Attending Care Care Encounter Source Date/Time Date/Time Type Type Clinicians Facility Department ID 2021-07-06 Emergency [facility] [id number] [facility]04 [facility] [id number] [facility] 11:22[facility]30 [facility] 2021-07-04 Emergency [facility] [id number] Univers 10:48:55 [facility] 2021-01-09 Inpatient [facility] MALISSA [id number] [facility] 10:52:00 [id number] [facility] 2020-12-27 Inpatient [facility] MALISSA [id number] [facility] 20:29:00 65 [facility] 2020-12-26 Inpatient CLAUDETTE Escobar, [facility] ENDO [id number] [facility] 10:00:00 Rik 01 [facility] 2020-12-22 Inpatient [facility] [id number] [facility] 23:08:15 49 [facility] 2020-08-23 Inpatient [facility] MALISSA [id number] [facility] 09:10:00 [facility] 2020-08-05 Inpatient [facility] MALISSA [id number] [facility] 20:55:00 [facility] 2020-02-20 Outpatient KRISTIN [facility] 7511 M [facility] 10:04:01 LISHA 2023-01-08 2023-01-08 Outpatient Anton [facility] [id number] Univers 08:00:00 08:00:00 SENDIL ity [facility] 2022-12-31 2022-12-31 Emergency X Jasmin GREGORIO [facility] ERT [id number] Univers 00:13:00 01:07:00 ity [facility] 2022-12-31 2022-12-31 Emergency Jasmin Gregorio [facility] 1.2.840.114 10 [id number] Univers 00:13:00 01:07:00 Filomena GUERRERO 350.1.13.10 i ty of [place] 4.2.7.2.686 [facility] [id number] [address] 2022-12-30 2022-12-30 [facility] 1.2.840.114 [id number] Univers 10:38:24 23:59:00 Encounter Amrit GUERRERO 350.1.13.10 ity of [place] 4.2.7.2.686 [facility] [id number] [facility] [address] 2022-12-30 2022-12-30 Outpatient Anton [facility] [id number] Univers 10:38:24 23:59:00 SENDIL itmisty [facility] 2022-12-30 2022-12-30 [facility] [id number] Univers 10:21:00 10:33:00 AWILDA calixto [facility] 2022-12-30 2022-12-30 [facility] 1.2.840.114 10 [id number] Univers 10:21:00 10:33:00 Awilda GUERRERO 350.1.13.10 ity of [place] 4.2.7.2.686 [facility] [id number] [address] 2022-12-30 2022-12-30 Telephone [facility] 1.2.840.11 4 [id number] Univers 00:00:00 00:00:00 Jorge GANDARA 350.1.13.10 it y of WOMEN'S 4.2.7.2.686 [facility] [id number] [facility] [address] 2022-12-29 2022-12-29 Outpatient R JORGE CHANDRA [facility] B [id number] Univers 13:30:00 13:30:00 JORGE CHANDRA ity of [facility] 2022-12-29 2022-12-29 Orders Doctor SUDHA 1.2.840.114 [id number] Univers 00:00:00 00:00:00 Only Unassigned, ALEM 350.1.13.10 ity of [place] [facility] 4.2.7.2.686 Zay as [phone] [facility] [address] 2022-12-29 2022-12-29 Telephone [facility] 1.2.866.067 [id number] [id number] Univers 00:00:00 00:00:00 Juany HEALTH 350.1.13.10 it y of [place].686 [place] [facility] - [phone] [facility] [address] 2022-12-28 2022-12-28 Telephone [facility] 1.2.304.287 [id number] [id number] Univers 00:00:00 00:00:00 Juany HEALTH 350.1.13.10 it y of [place] 4.2.7.2.686 [facility] - [phone] [facility] [address] 2022-12-25 2022-12-25 Patient Graciela [facility] 1.2.840.114 [id number] Univers 00:00:00 00:00:00 Secure Msg Kayley HEALTH 350.1.13.10 ity of [place] 4.2.7.2.686 Zay as BLANCA?BLEA [id number] Ga denilson [address] MEDICAL OFFICE BUILDING 2022-12-23 2022-12-23 Telephone [facility] 1.2.840.11 4 [id number] Univers 00:00:00 00:00:00 Jorge GANDARA 350.1.13.10 it y of [place].2.686 [place] [facility] [id number] [address] 2022-12-23 2022-12-23 Patient Gurpreet [facility] 1.2.840.114 [id number] Univers 00:00:00 00:00:00 Secure Msg Norberto GUERRERO 350.1.13.10 ity of [facility] 4.2.7.2.686 [place] PROFESS [phone] Ga dical NAL 134 [facility] 2022-12-22 2022-12-22 [facility], Ang - Db [facility] 1.2.840.1 14 [id number] Univers 09:30:00 09:45:00 Visit Jorge Chandra [facility] 350.1.13.1 0 ity of [place] 4.2.7.2.686 Zay as BLANCA?BLEA [id number] Ga dical KNEY [address] [place] [address] OFFICE [facility] 2022-12-22 2022-12-22 Office Sammie [facility] 1.2.840.114 [id number] Univers 08:00:00 08:53:38 Visit Jorge GANDARA 350.1.13.10 it y of [place] 4[place].2.[place] [facility] [id number] [address] 2022-12-22 2022-12-22 Outpatient R JORGE [facility]AN[facility]A [facility] B [id number] Univers 08:00:00 08:53:38 [facility] 2022-12-19 2022-12-19 Emergency X PARIVA [facility] ERT [id number] Univers 02:32:00 05:47:00 MILADYS ity [facility] 2022-12-19 2022-12-19 [facility] 1.2.040.097 [id number] Univers 02:32:00 05:47:00 Miladys Waters YOLANDA 350.1.13.10 ity of [facility] 4.2.7.2.686 [place] [id number] [address] 2022-12-18 2022-12-18 Outpatient R KENZIE BADILLO [facility] [id number] Univers 09:45:00 09:45:[address] [facility] 2022-12-17 2022-12-17 Telephone Kenzie Badillo [facility] 1.2.840.114 [id number] Univers 00:00:00 00:00:00 E HEALTH 350.1.13.10 it y of [place] 4.2.7.2.686 [facility] [phone] [facility] [address] 2022-12-15 2022-12-15 Outpatient [facility] [id number] Univers 11:00:00 11:30:30 SENDIL ity [facility] 2022-12-15 2022-12-15 [facility] 1.2.840.114 [id number] Univers 11:00:00 11:30:30 Visit Sendil Ismael GUERRERO 350.1.13.10 ity of [facility] 4.2.7.2.686 [facility] PROFESSIO [phone] Ga dical NAL [address] [place] [address] 2022-12-15 2022-12-15 Telephone [facility] 1.2.031.973 [id number] [id number] Univers 00:00:00 00:00:00 Sendil Ismael GUERRERO 350.1.13.10 ity of [place] 4.2.7.2.[place] [phone] Ga dicut NAL [address] [place] [address] 2022-12-14 2022-12-14 Emergency X [facility] ERT [id number] Univers 03:03:00 07:05:00 WAKILI ity [facility] 2022-12-14 2022-12-14 Emergency [facility] 1.2.643.571 [id number] [id number] Univers 03:03:00 07:05:00 Wajanetteli S [place] 350.1.13.10 ity of [place] 4.2.7.2.686 [facility] [phone] [address] 2022-11-03 2022-11-03 Emergency X [facility] ERT [id number] Univers 08:15:00 12:05:[address] [facility] 2022-11-03 2022-11-03 Emergency [facility] 1.2.916.771 [id number] [id number] Univers 08:15:00 12:05:00 Gaurang GUERRERO 350.1.13.10 i ty of [place] 4.2.7.2.686 [place] [id number] [facility] [address] [place] 2022-10-28 2022-10-28 Outpatient R GRACIELA [facility] [id number] Univers 15:00:00 15:28:[address] [facility] 2022-10-28 2022-10-28 Office [facility] 1.2.840.114 [id number] Univers 15:00:00 15:28:11 Visit Kayley [facility] 350.1.13.10 it y of [place] 4.2.7.2.686 Zay as BLANCA?BLEA [id number] [address] MEDICAL OFFICE [facility] 2022-10-28 2022-10-28 Orders Doctor SUDHA 1.2.840.114 [id number] Univers 00:00:00 00:00:00 Only Unassigned, ALEM 350.1.13.10 ity of [place] [facility] 4.2.7.2.686 Zay as [phone] [facility] [address] [place] 2022-10-28 2022-10-28 Abstract Graciela [facility] 1.2.840.114 [id number] [id number] Univers 00:00:00 00:00:00 Kayley [facility] 350.1.13.10 it y of [place] 4.2.7.2.686 Zay as BLANCA?BLEA [phone] [address] MEDICAL OFFICE [facility] 2022-10-28 2022-10-28 Patient Henry [facility] 1.2.840.114 [id number] Univers 00:00:00 00:00:00 Outreach Charlotte Wei [facility] 350.1.13.10 i ty of [place] 4.2.7.2.686 Zay as BLANCA?BLEA [phone] [address] MEDICAL OFFICE BUILDING 2022-10-28 2022-10-28 Telephone [facility] 1.2.466.478 2503 84948 Univers 00:00:00 00:00:00 Phylicia YOLANDA 350.1.13.10 i ty of [place] 4.2.7.2.686 [place] [id number] Ga dical NAL [address] [facility] 2022-10-13 2022-10-13 Emergency X JAGRUTI [facility] ERT [id number] Univers 01:56:00 02:55:00 WAKILI ity [facility] 2022-10-13 2022-10-13 [facility] 1.2.216.493 2972 92206 Univers 01:56:00 02:55:00 Jasoncesar Evelin YOLANDA 350.1.13.10 ity of [place] 4.2.7.2.686 [place] C[place]US [id number] [place] [address] [place] 2022-10-09 2022-10-09 Emergency [facility] ERT [id number] Univers 18:46:00 19:00:00 [facility] 2022-10-09 2022-10-09 [facility] 1.2.457.251 [id number] 15266 Univers 18:46:00 19:00:00 Brant GARNERJURAEZ 350.1.13.10 i ty of [place] 4.2.7.2.686 [place] CAMPUS [phone] [facility] [address] [place] 2022-10-09 2022-10-09 Orders Doctor SUDHA 1.2.840.114 [id number] Univers 00:00:00 00:00:00 Only Unassigned, ALEM 350.1.13.10 ity of [place] [facility] 4.2.7.2.686 Zay as [id number] [facility] [address] 2022-10-06 2022-10-06 [facility], 1.2.840.1 [id number] 410 [id number] Methodi 17:35:51 23:59:00 Encounter Christine 26633.1.1 997 s t 3.430.2.7 Hospit a .3.842251 l .8 2022-10-06 2022-10-06 [facility], 1.2.840.1 [id number] 217 [id number] Methodi 17:35:36 23:59:00 Encounter Christine 02427.1.1 999 s t 3.430.2.7 Hospit a .3.988141 l .8 2022-10-06 2022-10-06 Travel 1.2.840.1 1.2.462.515 4152 856806 Methodi 00:00:00 00:00:[address] 3.430.2.7 0.2.7.3.698 Ho spita .3.015136 084.8 l .8 2022-10-06 2022-10-06 Outpatient [facility] [id number] [place] 00:00:00 00:00:00 CHRISTINE 999 [place] 2022-10-06 2022-10-06 Outpatient [facility] [id number] 21187 [place] 00:00:00 00:00:00 CHRISTINE 997 [place] 2022-09-09 2022-09-09 Emergency X RISHABH, [facility] ERT [id number] Univers 18:15:00 19:35:00 NATY calixto [facility] 2022-09-09 2022-09-09 Emergency [facility] 1.2.840.114 [id number] [id number] Univers 18:15:00 19:35:00 Naty GUERRERO 350.1.13.10 i ty of [place] 4.2.7.2.686 [facility] [id number] [facility] [address] 2022-08-18 2022-08-18 Emergency X [facility] ERT [id number] Univers 16:38:00 17:44:00 HUY calixto [facility] 2022-08-18 2022-08-18 Emergency [facility] 1.2.951.545 8591 1453 Univers 16:38:00 17:44:00 Huy GUERRERO 350.1.13.10 i ty of [facility] 4.2.7.2.686 [facility] [phone] [facility] shanice [address] 2022-08-07 2022-08-08 Inpatient ITALIA EmmanuelWH [facility].01 [id number] [facility] 14:50:00 12:01:00 Gianna 40 [facility] 2022-08-03 2022-08-03 Emergency EM Ernesto, HCACL AERS [id number] [facility] 14:26:00 16:02:00 Roro 86 [facility] 2022-07-23 2022-07-23 [facility], 1.2.840.1 [id number] 876 [id number] Methodi 10:30:00 10:30:00 Encounter Christine 76216.1.1 209 s t 3.430.2.7 Hospit a .3.247413 l .8 2022-07-23 2022-07-23 Telephone Gabi, 1.2.840.1 [id number] 2099 [id number] Methodi 00:00:00 00:00:[address] 3.430.2.7 Hospit a .3.359920 l .8 2022-07-23 2022-07-23 Telephone Gabi, 1.2.840.1 [id number] 2099 [id number] Methodi 00:00:00 00:00:[address] 3.430.2.7 Hospit a .3.348396 l .8 2022-07-07 2022-07-07 Outpatient LONA DILL [id number] 936 Lona 10:45:00 10:45:00 ELBERT alvarez 2022-07-06 2022-07-06 Travel 1.2.840.1 1.2.180.713 4529 701574 Methodi 00:00:00 00:00:[address] 3.430.2.7 0.2.7.3.698 Ho spita .3.923877 084.8 l .8 2022-07-06 2022-07-06 Travel 1.2.840.1 1.2.804.938 1818 341104 Methodi 00:00:00 00:00:[address] 3.430.2.7 0.2.7.3.698 Ho spita .3.478124 084.8 l .8 2022-06-15 2022-06-16 [facility], 1.2.840.1 [id number] 2099 [id number] Methodi 14:15:00 11:08:59 Visit Christine 92406.1.[address] 3.430.2.7 Hospit a .3.643838 l .8 2022-06-15 2022-06-16 [facility], 1.2.840.1 [id number] 2099 345147 Methodi 14:15:00 11:08:59 Visit Christine 26217.1.[address] 3.430.2.7 Hospit a .3.238712 l .8 2022-06-15 2022-06-15 [facility], 1.2.840.1 [id number] 530 [id number] Methodi 14:15:15 23:59:00 Encounter Christine 57939.1.1 971 s t 3.430.2.7 Hospit a .3.750069 l .8 2022-06-15 2022-06-15 [facility], 1.2.840.1 [id number] 694 [id number] Methodi 14:15:13 23:59:00 Encounter Christine 35746.1.1 963 s t 3.430.2.7 Hospit a .3.446355 l .8 2022-06-15 2022-06-15 [facility], 1.2.840.1 [id number] 973 [id number] Methodi 14:13:36 14:14:00 Encounter Christine 50902.1.1 680 s t 3.430.2.7 Hospit a .3.127207 l .8 2022-06-15 2022-06-15 [facility], 1.2.840.1 [id number] 146 [id number] Methodi 14:12:01 14:12:01 Encounter Christine 57345.1.1 418 s t 3.430.2.7 Hospit a .3.374401 l .8 2022-06-15 2022-06-15 [facility], 1.2.840.1 [id number] 2100 017526 Methodi 00:00:00 00:00:00 Only Christine 88439.1.[address] 3.430.2.7 Hospit a .3.946403 l .8 2022-06-15 2022-06-15 Travel 1.2.840.1 1.2.019.472 8189 485941 Methodi 00:00:00 00:00:[address] 3.430.2.7 0.2.7.3.698 Ho spita .3.011415 084.8 l .8 2022-06-15 2022-06-15 [facility], 1.2.840.1 [id number] 447 [id number] [place] 00:00:00 00:00:00 Encounter CHRISTINE 31538.1.1 [address] .3.094844 .8 2022-06-15 2022-06-15 [facility], 1.2.840.1 [id number] 807 [id number] [place] 00:00:00 00:00:00 Encounter CHRISTINE 49122.1.1 [address] .3.358212 .8 2022-06-15 2022-06-15 [facility], 1.2.840.1 [id number] 853 [id number] [place] 00:00:00 00:00:00 Encounter CHRISTINE 56067.1.1 [address] 3.430.2.7 st .3.601783 .8 2022-06-15 2022-06-15 [facility], 1.2.840.1 [id number] 519 [id number] [place] 00:00:00 00:00:00 Encounter CHRISTINE 97471.1.1 [address] 3.[address].2.7 [address] .3.780285 .8 2022-06-15 2022-06-15 Orders Sathya, 1.2.840.1 [id number] 2099 [id number] Methodi 00:00:00 00:00:00 Only Christine 00096.1.[address] 3.430.2.7 Hospit a .3.635695 l .8 2022-06-15 2022-06-15 Travel 1.2.840.1 1.2.302.177 8253 770536 Methodi 00:00:00 00:00:[address] 3.430.2.7 0.2.7.3.698 Ho spita .3.082763 084.8 l .8 2022-06-11 2022-06-11 Travel 1.2.840.1 1.2.534.402 5395 112176 Methodi 00:00:00 00:00:[address] 3.430.2.7 0.2.7.3.698 Ho spita .3.990338 084.8 l .8 2022-06-11 2022-06-11 Travel 1.2.840.1 1.2.958.061 0096 671129 Methodi 00:00:00 00:00:[address] 3.430.2.7 0.2.7.3.698 Ho spita .3.559617 084.8 l .8 2022-02-17 2022-02-17 Refrajesh Borges, 1.2.840.1 [id number] 2099 004078 Methodi 00:00:00 00:00:[address] Andrea 3.430.2.7 Hospit a .3.281810 l .8 2022-02-17 2022-02-17 Petr Borges, 1.2.840.1 [id number] 2099 004041 Methodi 00:00:00 00:00:[address] Andrea 3.430.2.7 Hospit a .3.032043 l .8 2022-01-20 2022-01-20 Office Jony, 1.2.840.1 [id number] 2099 807018 Methodi 13:00:00 13:57:49 Visit Yoseph 70266.1.[address] [facility] 3.430.2.7 Hospit a .3.460335 l .8 2022-01-20 2022-01-20 Office Jony, 1.2.840.1 [id number] 2099 212150 Methodi 13:00:00 13:57:49 Visit Yoseph 71001.1.[address] [facility] 3.430.2.7 Hospit a .3.328960 l .8 2022-01-20 2022-01-20 Telephone GEORGIE Kelley 1.2.840.114 9 [id number] [facility] 00:00:00 00:00:00 Michi MIJARESPEC 350.1.13.10 ity rey SÁNCHE[place] 4.2.7.[address] [facility] [id number] [address] [facility] 2022-01-20 2022-01-20 Travel 1.2.840.1 1.2.027.686 3797 420303 Methodi 00:00:00 00:00:[address] 3.430.2.7 0.2.7.3.698 Ho spita .3.751291 084.8 l .8 2022-01-20 2022-01-20 Travel 1.2.840.1 1.2.862.339 9929 698454 Methodi 00:00:00 00:00:[address] 3.430.2.7 0.2.7.3.698 Ho spita .3.427289 084.8 l .8 2022-01-19 2022-01-19 Telephone Jony [facility] 1.2.840.114 93 [id number] [facility] 00:00:00 00:00:00 Yoseph MIJARESPEC 350.1.13.10 ity of [place] IALTY 4.2.7.2.[address] [facility] [id number] [facility] AND [facility] [address] [facility] 2021-11-21 2021-11-21 Orders Doctor SUDHA 1.2.840.114 [id number] Univers 00:00:00 00:00:00 Only Unassigned, ALEM 350.1.13.10 ity of [place] [facility] 4.2.7.2.686 [facility] [id number] [facility] [address] 2021-11-17 2021-11-18 Emergency X [facility] ERT [id number] Univers 19:45:00 00:44:00 DONTA ity [facility] 2021-11-17 2021-11-18 [facility] 1.2.791.038 9263 8574 Univers 19:45:00 00:44:00 [facility] 350.1.13.10 i ty [facility] 4.2.7.2.686 [facility] [id number] [place] 4332[address] Branch 2021-11-16 2021-11-16 Emergency X [facility] ERT [id number] Univers 20:28:00 21:58:00 SDJANETTELI ity [facility] 2021-11-16 2021-11-16 [facility] 1.2.663.859 9729 5340 Univers 20:28:00 21:58:00 Miladys GUERRERO 350.1.13.10 ity [facility] 4.2.7.2.686 [facility] [id number] [place] 433244 Branch 2021-10-02 2021-10-02 Emergency EM Nwoye, HCACL MALISSA [id number] [facility] 16:59:00 20:32:00 Hung [id number] Cl [facility] 2021-10-02 2021-10-02 Emergency EM EDDOC, HCACL HCACL [id number] [facility] 16:59:00 20:32:00 GENERIC 76 [facility] 2021-10-01 2021-10-01 Petr Borges, 1.2.840.1 [id number] Methodi 00:00:00 00:00:[address] Andrea 3.430.2.7 Hospit a .3.170021 l .8 2021-09-30 2021-09-30 Emergency [facility] [id number] [facility] 13:31:00 16:34:00 [facility]-09-30 2021-09-30 [facility] 1.2.840.114 [id number] Univers 13:31:00 16:34:00 Awilda GUERRERO 350.1.13.10 ity [facility] 4.2.7.2.686 [facility] [id number] [address] 2021-08-14 2021-08-14 Refill Gutierres, 1.2.840.1 [id number] 21 [id number] Methodi 00:00:00 00:00:[address] 3.430.2.7 Hospit a .3.835167 l .8 2021-08-12 2021-08-12 Refill Gutierres, 1.2.840.1 [id number] 21 [id number] Methodi 00:00:00 00:00:[address] 3.430.2.7 Hospit a .3.681871 l .8 2021-07-23 2021-07-23 Emergency X [facility] ERT [id number] Univers 16:14:00 17:06:[facility] 2021-07-23 2021-07-23 Emergency [facility] 1.2.020.848 [id number] Univers 16:14:00 17:06:00 YOLANDA 350.1.13.10 i ty [facility] 4.2.7.2.686 [facility] [id number] [address] 2021-07-23 2021-07-23 Emergency EM White, HCACL AERS [id number] [facility] 13:58:00 14:24:00 Burak [id number] [facility] 2021-07-23 2021-07-23 Emergency EM White, HCACL HCACL [id number] [facility] 13:58:00 14:24:00 Burak 69 [facility] 2021-07-10 2021-07-10 Telemedici Jony, 1.2.840.1 [id number] 2 [id number] Methodi 08:30:00 09:02:51 [place] [address]25.1.[address] Andrea 3.430.2.7 Hospit a .3.524387 l .8 2021-07-09 2021-07-09 Travel 1.2.840.1 1.2.359.923 8895 [id number] Methodi 00:00:00 00:00:[address] 3.430.2.7 0.2.7.3.698 Ho spita .3.710692 084.8 l .8 2021-06-13 2021-06-13 [facility]patient [facility] [id number] [place] 00:00:00 00:00:00 YOSEPH 976 Method i 2021-04-17 2021-04-17 Emergency E LOLITA WASSERMAN SE [facility] 7515 16:40:00 19:42:00 [facility] 2021-03-30 2021-03-30 Emergency E SATURNINO [facility] MED 7514 MHBL 00:46:00 06:26:00 DIMITRIS 2021-01-15 2021-01-15 Outpatient Escobar, HCACL OUTD [id number] [id number] [facility] 08:00:00 08:00:00 Rik [id number] [facility] 2021-01-09 2021-01-09 Emergency E LOLITA WASSERMAN SE MED 7513 12:29:00 16:41:00 [facility] 2020-12-26 2020-12-26 Emergency [facility] 064 [id number] 09 [place] 00:00:00 00:00:00 039 Method i 2020-12-21 2020-12-22 Emergency [facility] 1.2.959.822 [id number] 7932 [facility] 22:42:00 02:02:00 Miladys Guerrero 350.1.13.10 Bhumi 4.2.7.2.686 [facility] [id number] [facility] [address] 2020-12-21 2020-12-22 Emergency [facility] 1.2.003.412 [id number] 22:42:00 02:02:00 Miladys Waters Yolanda 350.1.13.10 [place] 4.2.7.2.686 [place] [id number] 08 2020-12-21 2020-12-21 Orders Doctor HALEY 1.2.840.114 [id number] Univers 00:00:00 00:00:00 Only Unassigned, ALEM 350.1.13.10 ity of [place] [facility] [address] [place] [address] [phone] [facility] [address] 2020-12-21 2020-12-21 Orders Doctor HALEY 1.2.840.114 [id number] 00:00:00 00:00:00 Only Unassigned, ALEM 350.1.13.10 [place] [facility] 4.2.7.2.[facility] [phone] 009 2020-08-15 2020-08-19 Inpatient [facility] MALISSA [id number] [facility] 14:57:00 06:49:15 39 [facility] 2020-08-15 2020-08-15 Emergency [facility] 1.2.110.801 [id number] Univers 03:26:00 06:17:00 Donta Guerrero 350.1.13.10 i ty of [place] 4.2.7.[address] [place] [phone] 2020-08-15 2020-08-15 [facility] [id number] Univers 03:26:00 06:17:[address] [facility] 2020-08-15 2020-08-15 [facility] 1.2.421.285 [id number] 03:26:00 06:17:00 Donta Guerrero 350.1.13.10 [place] 4.2.7.2.686 [place] [id number] 08 2020-04-13 2020-04-13 Emergency [facility] 1.2.840.114 [id number] Univers 19:38:00 23:40:00 Awilda Cookie Guerrero 350.1.13.10 ity of [place] 4.2.7.2.686 [facility] [phone] [address] 2020-04-13 2020-04-13 Emergency Elisa, [facility] 1.2.840.114 [id number] 19:38:00 23:40:00 Awilda Cookie Guerrero 350.1.13.10 [place] 4.2.7.2.686 [place] [phone] [facility] 2020-04-13 2020-04-13 Orders Doctor HALEY 1.2.840.114 [id number] [facility] 00:00:00 00:00:00 Only Unassigned, ALEM 350.1.13.10 ity of [place] [facility] 4.2.7.2.686 Zay as [phone] [address] 2020-04-13 2020-04-13 Orders Doctor HALEY 1.2.840.114 [id number] 00:00:00 00:00:00 Only Unassigned, ALEM 350.1.13.10 [place] [facility] 4.2.7.2.686 [id number] 009 2020-04-10 2020-04-10 Emergency Pope, [facility] 1.2.979.235 [id number] [facility] 15:39:00 19:05:00 Huy Guerrero 350.1.13.10 i ty of [place] 4.2.7.2.686 [facility] [phone] [address] 2020-04-10 2020-04-10 Emergency Pope, [facility] 1.2.107.142 [id number] 15:39:00 19:05:00 Huy Guerrero 350.1.13.10 [place] 4.2.7.2.686 [place] [id number] [facility] 2020-04-10 2020-04-10 Orders Doctor HALEY 1.2.840.[id number] [place] [address] 00:00:00 00:00:00 Only Unassigned, ALEM 350.1.13.10 ity of [place] [facility] 4.2.7.2.686 Zay as [phone] [address] 2020-04-10 2020-04-10 Orders Doctor HALEY 1.2.840.114 [id number] 00:00:00 00:00:00 Only Unassigned, ALEM 350.1.13.10 [place] [facility] 4.2.7.2.686 [id number] 009 2020-03-11 2020-03-11 [facility] [id number] [place] 10:00:00 10:00:00 t; Gayatri HUSAIN and Quynh FOSTER Gynecology rubén HUSAIN M.D. [facility] 2020-02-28 2020-02-28 [facility] [id number] [place] 08:30:00 08:30:00 t; Gayatri HUSAIN ans ASHA, M.D. 2020-02-23 2020-02-23 [facility] [id number] [place] 11:00:00 11:00:00 t; Gayatri HUSAIN ans ASHA, M.D. 2020-02-16 2020-02-16 [facility] [id number] [place] 14:15:00 14:15:00 t; Yue ROCHA i, M.D. Gynecology Dinah Crawford M.D. Clinic 2020-02-15 2020-02-15 Emergency E AMELIE, MHSE MHSE 7510 20:06:00 21:19:00 [facility] 2020-02-14 2020-02-14 [facility] [id number] [place] 09:00:00 09:00:00 t; SAMIR MATAMOROS and Phy sici BETHANY, M.D. Gynecology rubén Mend[facility] 2020-01-31 2020-01-31 [facility] [id number] [place] 08:30:00 08:30:00 t; Yue WATKINS i, D.O. Gynecology Dinah Webb [facility] 2019-12-20 2019-12-20 [facility] Orthopedics [id number] [place] 09:30:00 09:30:00 t; mayo CID Quynh GOSS M.D. Sports Jewel Lazo M.D. [facility] 2019-12-20 2019-12-20 Outpatient Raju_P MMG MMG [id number] [place] 04:51:00 04:51:00 0415 [facility] 2019-12-18 2019-12-18 Emergency E TABBY, MHSE MHSE 7500 MH 20:54:00 21:40:00 [facility] a [facility] 2019-10-11 2019-10-12 Emergency X [facility] ERT [id number] Univers 21:52:36 00:17:00 DONTA rajy [facility] 2019-10-11 2019-10-12 Emergency [facility] 1.2.992.317 [id number] Univers 21:52:36 00:17:00 Donta Guerrero 350.1.13.10 i ty [facility] 4.2.7.2.686 [facility] [phone] [facility] [address] [place] [address] 2019-10-11 2019-10-12 Emergency [facility] 1.2.478.839 [id number] 21:52:36 00:17:00 Donta Guerrero 350.1.13.10 [place] 4.2.7.2.686 [place] [id number] [facility] 2019-10-11 2019-10-11 Orders Doctor SUDHA 1.2.840.114 [id number] Univers 00:00:00 00:00:00 Only Unassigned, ALEM 350.1.13.10 ity of [place] [facility] 4.2.7.2.686 [facility] [phone] [address] 2019-10-11 2019-10-11 Orders Doctor SUDHA 1.2.840.114 [id number] 00:00:00 00:00:00 Only Unassigned, ALEM 350.1.13.10 [place] [facility] 4.2.7.2.686 [id number] 009 2019-06-28 2019-06-28 Appointmen MARIBEL GRUBBS Obstetrics [id number] [place] 16:00:00 16:00:00 t; Jackie CAVANAUGH. and Ph ysici Praveen GRUBBS Continuity M.D. [facility] 2019-05-12 2019-05-12 Nurse Visit, Bautista Nurse [facility] 1.2 .840.114 [id number] Univers 10:44:42 12:05:57 Visit Perri Pérez EXCHANGE TELLER 350.1.13.10 ity of REGIONAL 4.2.7.2.686 [place]ay as MATERNAL [phone] [facility] ical & CHILD [address] [place] [address] 2019-05-12 2019-05-12 Nurse Visit, [facility] 1.2.840.114 [id number] 10:44:42 12:05:57 Visit Bautista EXCHANGE TELLER 350.1.13.10 Nurse REGIONAL 4.2.7.2.686 MATERNAL [phone] & CHILD [address] [place] [address] 2019-05-10 2019-05-10 [facility] 1.2.840.114 [id number] [facility] 00:00:00 00:00:00 Perri Olivier EXCHANGE TELLER 350.1.13.10 it y of REGIONAL 4.2.7.2.686 [place]ay as MATERNAL [phone] Med ical & CHILD [address] [place] [address] 2019-05-10 2019-05-10 Telephone [facility] 1.2.840.114 [id number] 00:00:00 00:00:00 Perri Olivier EXCHANGE TELLER 350.1.13.10 REGIONAL 4.2.7.2.686 MATERNAL [phone] & CHILD [address] [place] [address] 2019-04-03 2019-04-03 Patient ROBIN Mcfadden 1.2.840.114 [id number] [facility] 00:00:00 00:00:00 Secure Msg Ivet Y HEALTH 350.1.13.10 ity of [facility] 4.2.7.2.[place] [phone] [address] 2019-04-03 2019-04-03 Patient ROBIN Mcfadden 1.2.840.114 [id number] 00:00:00 00:00:00 Secure Msg Ivet Y HEALTH 350.1.13.10 CLINICS 4.2.7.2.686 [id number] [facility] 2019-03-07 2019-03-07 Patient Doctor HALEY 1.2.840.114 [id number] Univers 00:00:00 00:00:00 Secure Msg Unassigned, ALEM 350.1.13.10 ity of [place] [facility] 4.2.7.2.686 [place] [phone] [address] 2019-03-07 2019-03-07 Patient Doctor SUDHA [place].2.840.114 [id number] 00:00:00 00:00:00 Secure Msg Unassigned, ALEM 350.1.13.10 [place] [facility] 4.2.7.2.686 [id number] [facility] 2019-02-27 2019-02-27 Patient Doctor SUDHA [place].2.840.114 [id number] Univers 00:00:00 00:00:00 Secure Msg Unassigned, ALEM 350.1.13.10 ity of [place] [facility] 4.2.7.2.686 [place] [phone] [address] 2019-02-27 2019-02-27 Patient Doctor SUDHA [place].2.840.114 [id number] 00:00:00 00:00:00 Secure Msg Unassigned, ALEM 350.1.13.10 [place] [facility] 4.2.7.2.686 [id number] 044 2018-10-13 2018-10-13 AppointMARIBEL Puente [facility] [id number] [place] 14:30:00 14:30:00 t; Jennifer FINK i, M.D. ans JORDAN, M.D. 2018-09-07 2018-09-21 Outpatient [facility] [id number] 15:00:00 10:19:03 2018-09-07 2018-09-07 AppointMARIBEL Rae [employer]rentice [id number] UT 15:00:00 15:00:00 t; BONITA KRISHNA Phys ici KANDACE, M.D. ans M.D. Results Test Description Test Time Test Comments Results Result Comments Source POCT CREATININE 2022-12-30 16:38:09 Test Item Value Reference Range Interpretation Comme nts POCT Creatinine (test code = 3076955670) 0.7 mg/dL 0.5-1.1 Lab Interpretation (test code = 40339-2) [facility] [id number] 17:16:01 Test Item Value Reference Range Interpretation Comments TSH (test code = 3.96 See_Comment [Automated message] [id number]) The system [employer] generated this result transmitted ref erence range: 0.45 - 4 .70 mIU/L. The refe rence range was not u sed to interpret this result as normal/abnor mal. Lab Interpretation (test Normal code = 25529-2) [id number] 11:33:33 Test Item Value Reference Interpretation Comments Range D-DIMER (test code = See_Comment [Autom ated 9342846026) message] The system which generated this result transmitted reference range : <0.41 ?g/mL (FEU). The reference range was not used to interpret this result as normal/abnormal . ANGI (test code = This test may be ANGI) used in conjunction with a clinical pretest probability (PTP) assessment model to exclude venous thromboembolism (VTE) in patients suspected of deep venous thrombosis (DVT) and pulmonary embolism (PE) A D-Dimer value less than 0.50 ?g/ml (FEU) has a negative predicative value of 96 to 100% (95% CI)and 97 to 100% (95% CI) as an aid in the diagnosis of deep vein thrombosis (DVT) and pulmonary embolism when there is low or moderate pretest probability of PE or DVT. D-Dimer values are expressed in initial fibrinogen equivalent units (FEU)" The assay results should be used with other information, including the clinical context, in forming a diagnosis. Lab Interpretation Normal (test code = 06263-1) [facility] [id number] 10:57:27 Test Item Value Reference Range Interpretation Comments TROPONIN I (test code = 0.012 ng/mL <=0.034 7247149178) ANGI (test code = ANGI) Reference (Normal) Range (defined by the 99th percentile reference limit): <= 0.034 ng/mL Note: Cardiac troponin begins to rise 3-4 hours after the onset of ischemia. Repeat in 4-6 hours if the sample was drawn within 3-4 hours of the onset of the symptom and found normal. Diagnosis of myocardial injury is made with acute changes in cTn concentrations with at least one serial sample above the 99th percentile upper reference limit (URL), taken together with the patient's clinical presentation. Biotin has been reported to cause a negative bias, interpret results relative to patient's use of biotin. Lab Interpretation Normal (test code = 21362-5) [facility] [id number] 09:04:18 Test Item Value Reference Range Interpretation Comments TROPONIN I (test code = 0.010 ng/mL <=0.034 0162571207) ANGI (test code = ANGI) Reference (Normal) Range (defined by the 99th percentile reference limit): <= 0.034 ng/mL Note: Cardiac troponin begins to rise 3-4 hours after the onset of ischemia. Repeat in 4-6 hours if the sample was drawn within 3-4 hours of the onset of the symptom and found normal. Diagnosis of myocardial injury is made with acute changes in cTn concentrations with at least one serial sample above the 99th percentile upper reference limit (URL), taken together with the patient's clinical presentation. Biotin has been reported to cause a negative bias, interpret results relative to patient's use of biotin. Lab Interpretation Normal (test code = 38163-2) [facility] WITH [id number] 09:03:38 Test Item Value Reference Range Interpretation Comments WBC (test code = 10.76 See_Comment [Automated 9132-2) message] The sy stem which generated this result transmitted reference range : 4.30 - 11.10 10*3/?L. The reference range was not used to interpret this result as normal/abnormal . RBC (test code = 4.19 See_Comment [Automated 215-8) message] The sy stem which generated this result transmitted reference range : 3.93 - 5.25 10*6/?L. The reference range was not used to interpret this result as normal/abnormal . HGB (test code = 12.8 g/dL 11.6-15.0 718-7) HCT (test code = 37.5 % 35.7-45.2 4544-3) MCV (test code = 89.5 fL 80.6-95.5 787-2) MCH (test code = 30.5 pg 25.9-32.8 785-6) MCHC (test code = 34.1 g/dL 31.6-35.1 786-4) RDW-SD (test code = 36.7 fL 39.0-49.9 L 24481-3) RDW-CV (test code = 11.6 % 12.0-15.5 L 788-0) PLT (test code = 317 See_Comment [Automated 777-3) message] The sy stem which generated this result transmitted reference range : 166 - 358 10*3/ ?L. The reference r dagoberto was not used to interpret this result as normal/abnormal . MPV (test code = 8.8 fL 9.5-12.9 L 85665-0) NRBC/100 WBC (test 0.0 See_Comment [Automat ed code = 3658079238) message] The system which generated this result transmitted reference range : 0.0 - 10.0 /100 WBCs. The refer ence range was not u sed to interpret th is result as normal/abnormal . NRBC x10^3 (test code See_Comment [Auto mated = 9201584615) message] The s ystem which generated this result transmitted reference range : 10*3/?L. The reference range was not used to interpret this result as normal/abnormal . GRAN MAT (NEUT) % 49.3 % (test code = 770-8) IMM GRAN % (test code 0.50 % = 3982939758) LYMPH % (test code = 42.6 % 736-9) MONO % (test code = 6.3 % 5905-5) EOS % (test code = 0.6 % 713-8) BASO % (test code = 0.7 % 706-2) GRAN MAT x10^3(ANC) 5.32 10*3/uL 1.88-7.09 (test code = 3736823979) IMM GRAN x10^3 (test 0.05 10*3/uL 0.00-0.06 code = 0421700896) LYMPH x10^3 (test code 4.58 10*3/uL 1.32-3.29 H = 731-0) MONO x10^3 (test code 0.68 10*3/uL 0.33-0.92 = 742-7) EOS x10^3 (test code = 0.06 10*3/uL 0.03-0.39 711-2) BASO x10^3 (test code 0.07 10*3/uL 0.01-0.07 = 704-7) Lab Interpretation Abnormal (test code = 31885-0) [facility]. METABOLIC PANEL (02757)2022-12-14 08:52:54 Test Item Value Reference Range Interpretation Comments NA (test code = 137 mmol/L 135-145 4320316227) K (test code = 3.9 mmol/L 3.5-5.0 4309458238) CL (test code = 103 mmol/L 98-108 5786144951) CO2 TOTAL (test code 25 mmol/L 23-31 = 5684843533) AGAP (test code = 9 2-16 8002338782) BUN (test code = 14 mg/dL 7-23 8524065578) GLUCOSE (test code = 88 mg/dL 70-110 7020389628) CREATININE (test code 0.69 mg/dL 0.50-1.04 = 0012218997) TOTAL BILI (test code 0.4 mg/dL 0.1-1.1 = 2247246200) CALCIUM (test code = 9.5 mg/dL 8.6-10.6 7776208080) T PROTEIN (test code 7.8 g/dL 6.3-8.2 = 6558115003) ALBUMIN (test code = 4.9 g/dL 3.5-5.0 0169437786) ALK PHOS (test code = 59 U/L 34-122 1115199033) ALTv (test code = 19 U/L 5-35 1742-6) AST(SGOT) (test code 23 U/L 13-40 = 1035474888) eGFR (test code = 99.9 mL/min/1.73m2 1861714613) ANGI (test code = ANGI) Association of Glomerular Filtration Rate (GFR) and Staging of Kidney Disease* + + +- +| GFR (mL/min/1.73 m2) ?| With Kidney Damage ?| ?Without Kidney Damage+ ------+ ----+ ------+| ?>90 ?| ?Stage one ?| ? Normal ?+ -+ + -+| ?60-89 ?| ?Stage two ?| ? Decreased GFR ? + + +- +| ?30-59 ?| ?Stage three ?| ? Stage three ? + + +- +| ?15-29 ?| ?Stage four ? | ? Stage four ?+ -+ + -+| ?<15 (or dialysis) ? ?| ?Stage five ? | ? Stage five ?+ -+ + -+ *Each stage assumes the associated GFR level [...] or urine or abnormalities in imaging tests). [facility] 08:52:34 Test Item Value Reference Range Interpretation Comments LIPASE (test code = 6619784330) 70 U/L 0-220 Lab Interpretation (test code = Normal 25299-9) [facility]-[id number] 15:45:47 Test Item Value Reference Interpretation Comments Range D-DIMER (test code = See_Comment [Autom ated 3327951261) message] The system which generated this result transmitted reference range : <0.41 ?g/mL (FEU). The reference range was not used to interpret this result as normal/abnormal . ANGI (test code = This test may be ANGI) used in conjunction with a clinical pretest probability (PTP) assessment model to exclude venous thromboembolism (VTE) in patients suspected of deep venous thrombosis (DVT) and pulmonary embolism (PE) A D-Dimer value less than 0.50 ?g/ml (FEU) has a negative predicative value of 96 to 100% (95% CI)and 97 to 100% (95% CI) as an aid in the diagnosis of deep vein thrombosis (DVT) and pulmonary embolism when there is low or moderate pretest probability of PE or DVT. D-Dimer values are expressed in initial fibrinogen equivalent units (FEU)" The assay results should be used with other information, including the clinical context, in forming a diagnosis. Lab Interpretation Normal (test code = 43101-2) [facility], [id number] 15:07:51 Test Item Value Reference Range Interpretation Comments PREG SERUM (test code Negative = 2931726488) ANGI (test code = ANGI) Less than 10 IU/L. ?If low titer or ectopic is suspected, resubmit specimen in 48-72 hours. [facility]. METABOLIC PANEL (03855)2022-11-03 15:05:35 Test Item Value Reference Range Interpretation Comments NA (test code = 138 mmol/L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
--- NOTE | 2023-01-01 07:41 | RAD REPORT ---
EXAM DESCRIPTION: Ernat Single View01/01/2023 6:58 am CLINICAL HISTORY: CHEST PAIN COMPARISON: Chest Single View dated 06/29/2022; Chest Single View dated 07/20/2017; CHEST SINGLE VIE W dated 02/12/2012 TECHNIQUE: Portable AP view of the chest. FINDINGS: The lungs are clear. No pneumothorax or effusion. The cardiomediastinal contours are unrem arkable. IMPRESSION: No acute cardiopulmonary process.
[2023-01-01] MEDS ORDERED: NA CHLORIDE 0.9% 50 ML ONE (07:57)
[2023-01-01] MEDS ORDERED: KETAMINE HCL IN 0.9 % NACL 50 MG/5 ML SYRINGE IV ONE ×2 (07:58→08:02)
[2023-01-01 08:12] LABS: Absolute Lymphocytes (CBC) 3.3 K/uL (0.7-4.9); Hematocrit 37.8 % (36.0-45.0); Lymphocytes % 47.4 % (15.3-44.8); MPV 6.7 fL (7.6-11.3)
[2023-01-01 08:40] LABS: ALT/SGPT 28 U/L (13-56); AST/SGOT 17 U/L (15-37); Albumin 4.2 g/dL (3.4-5.0); Alkaline Phosphatase 70 U/L (45-117); BUN Blood Urea Nitrogen 9 mg/dL (7-18); Bicarbonate 28 mEq/L (21-32); Bilirubin Total 0.2 mg/dL (0.2-1.0); Glomerular Filtration Rate 110 ml/min (=/>90); Glucose Level 97 mg/dL (74-106); Magnesium 2.1 mg/dL (1.6-2.4); NT PRO-BNP 29 pg/mL (<125); Protein, Total 7.5 g/dL (6.4-8.2); Sodium Level 137 mEq/L (136-145); Troponin High Sensitivity 5.2 pg/mL (<58.9)
[2023-01-01 08:50] LABS: Bilirubin Direct < 0.1 mg/dL (0-0.2)
--- NOTE | 2023-01-01 08:51 | RAD REPORT ---
EXAM DESCRIPTION: MRI - Lumbar Spine Callie Hauser - 01/01/2023 8:38 am CLINICAL HISTORY: Lower extremity numbness;Lower back pain COMPARISON: No comparisons TECHNIQUE: Multiplanar multisequence MRI of the lumbar spine performed, without intravenous gadolini um contrast. FINDINGS: Minimal retrolisthesis of L5 over S1, measuring 2 millimeter, secondary to endplate and fa cet remodeling. Preserved lumbar lordosis without other significant spondylolisthesis. Vertebral bod y heights are well maintained. No suspicious marrow signal. No paraspinal masses or edema. Conus terminates at the appropriate level. Cauda equina roots are unremarkable, with no clumping or t hickening. T12-L1: No significant findings. L1-L2: No significant findings. L2-L3: No significant findings. L3-L4 level: No significant findings. L4-L5 level: No significant findings. L5-S1 level: Posterior mild disc bulge with superimposed left subarticular disc protrusion. Bilateral mild facet arthropathy. Findings contribute to minimal narrowing of the left lateral recess. Neural foramina and central canal are patent. IMPRESSION: Mild disc bulge with left subarticular superimposed disc protrusion at L5-S1 contributin g to minimal left lateral recess narrowing. No other acute findings.
--- NOTE | 2023-01-01 09:09 | ER ---
Nurse's Notes [facility] Name: Lona Marie Age: 32 yrs Sex: Female : 1990 Arrival Date: 01/01/2023 Time: 06:21 Bed 8 Private MD: Diagnosis: Low back pain Presentation: 01/01 06:31 Chief complaint: Patient states: back pain increasing x 2 weeks after daughter jumped kl on her back pt report has degenerative disc disease and pain is normally controlled with hydrocodone but it is not working also reports numbness to back of both lower extremities off and on. Coronavirus screen: Vaccine status: Patient reports receiving the 2nd dose of the covid vaccine. Ebola Screen: Patient negative for fever greater than or equal to 101.5 degrees Fahrenheit, and additional compatible Ebola Virus Disease symptoms. Initial Sepsis Screen: Does the patient meet any 2 criteria? No. Patient's initial sepsis screen is negative. Does the patient have a suspected source of infection? No. Patient's initial sepsis screen is negative. Risk Assessment: Do you want to hurt yourself or someone else? Patient reports no desire to harm self or others. 06:31 Method Of Arrival: Ambulatory kl 06:31 Acuity: SMITH 3 kl Triage Assessment: 06:36 General: Appears uncomfortable, Behavior is calm, cooperative. Pain: Complains of pain kl in back Pain radiates to back of left leg and back of right leg Pain currently is 10 out of 10 on a pain scale. Aggravated by increased activity. 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 - Social history:: Smoking status: Patient reports the use of cigarette tobacco products, denies chronic smoking, but will smoke occasionally. Screenin:00 [facility] ED Fall Risk Assessment (Adult) History of falling in the last 3 months, bp including since admission No falls in past 3 months (0 pts). Abuse screen: Denies threats or abuse. Denies injuries from another. Nutritional screening: No deficits noted. Tuberculosis screening: No symptoms or risk factors identified. Assessment: 07:00 General: SEE TRIAGE NOTE. Neuro: Level of Consciousness is awake, alert, obeys bp commands, Oriented to Appropriate for age. 07:55 Pain: Complains of pain in right low back and left low back and back of right leg and ph back of left leg. Neuro: Cool Agitation-Sedation Scale (RASS): +1 Restless Level of Consciousness is awake, alert, obeys commands, Oriented to person, place, time, situation. Respiratory: Airway is patent Respiratory effort is even, unlabored, Respiratory pattern is regular, symmetrical. 08:41 Reassessment: Patient appears in no apparent distress at this time. Patient and/or ph family updated on plan of care and expected duration. Pain level reassessed. Patient is alert, oriented x 3, equal unlabored respirations, skin warm/dry/pink. Vital Signs: 06:31 BP 133 / 87; Pulse 96; Resp 18; Temp 98.4(TE); Pulse Ox 100% on R/A; Weight 67.13 kg kl (R); Height 5 ft. 3 in. ; Pain 10/10; 08:15 BP 141 / 91; Pulse 89; Resp 18; Temp 97.2; Pulse Ox 98% on R/A; ph 06:31 Body Mass Index 26.22 (67.13 kg, 160.02 cm) 06:31 Pain Scale: Adult ED Course: 06:26 Patient arrived in ED. ja2 06:34 Triage completed. kl 06:41 Aj Doe MD is Attending Physician. peg 06:59 XRAY Chest (1 view) In Process Unspecified. EDMS 07:00 Arm band placed on. bp 07:00 Patient has correct armband on for positive identification. Bed in low position. Call bp light in reach. Side rails up X2. 07:01 Attending Physician role handed off by Aj Doe MD ms3 07:01 Stanislav Nichole DO is Attending Physician. ms3 07:10 Sophia Hamilton, RN is Primary Nurse. ph 07:45 Inserted saline lock: 22 gauge in left antecubital area, using aseptic technique. Blood bp collected. 08:36 MRI Lumbar Spine wo Con In Process Unspecified. EDMS 10:06 No provider procedures requiring assistance completed. IV discontinued, intact, ph bleeding controlled, No redness/swelling at site. Pressure dressing applied. Administered Medications: 07:11 CANCELLED (Physician Discretion): Aspirin PO Chewable Tablet 81 mg PO once ph 07:27 CANCELLED (Physician Discretion): NS 0.9% IV 1000 ml IV at 1 bolus Per protocol; 1000 ph mL bolus 07:59 Drug: Ketamine IVP 0.2 mg/kg Route: IVP; Site: left antecubital; bp 10:04 Follow up: Response: No adverse reaction; Pain is decreased; RASS: Alert and Calm (0) ph Medication: 08:37 VIS not applicable for this client. ph Outcome: 09:09 Discharge ordered by . ms3 10:06 Discharged to home ambulatory. ph 10:06 Condition: good 10:06 Discharge instructions given to patient, Instructed on discharge instructions, follow up and referral plans. Demonstrated understanding of instructions, follow-up care. 10:06 Patient left the ED. ph Signatures: Dispatcher [employer] EDLana Devries RN RN kl Anderson, Corey, MD MD cha Hall, Patricia, RN RN Blas Perez, HO RN Stanislav Mccloud DO DO ms3 Salud Robins
--- NOTE | 2023-01-01 09:09 | EDPHYS ---
Physician Documentation [facility] Name: Lona Marie Age: 32 yrs Sex: Female : 1990 Arrival Date: 01/01/2023 Time: 06: Bed 8 Private MD: ED Physician Stanislav Nichole HPI: 01/01 08:07 This 32 yrs old Female presents to ER via Ambulatory with complaints of Back Pain, Leg ms3 Pain, Chest Pain. 08:07 32-year-old female with past medical history of breast mass, cervical spine nerve ms3 damage, chronic back pain. Patient states she was stretching out on the floor stretching her back when her daughter jumped on her. Patient states she currently has pain radiating down bilateral lower extremities. Patient states the pain is worse with walking. Patient states she is taking hydrocodone 06/08/2025 at home, gabapentin, Flexeril. Patient states when urinating she is unable to feel it.. 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 - Social history:: Smoking status: Patient reports the use of cigarette tobacco products, denies chronic smoking, but will smoke occasionally. ROS: 08:07 Constitutional: Negative for fever, and chills. Neck: Negative for injury, pain, and ms3 swelling, Cardiovascular: Negative for chest pain, and palpitations. Respiratory: Negative for shortness of breath, cough, wheezing, and pleuritic chest pain, Abdomen/GI: Negative for abdominal pain, nausea, vomiting, diarrhea, and constipation. 08:07 Back: Positive for pain at rest, pain with movement, radiated pain. 08:07 All other systems are negative. Exam: 08:07 Constitutional: This is a well developed, well nourished patient who is awake, alert, ms3 and in no acute distress. Head/Face: Normocephalic, atraumatic. Neck: Trachea midline, no cervical lymphadenopathy. Supple, full range of motion without nuchal rigidity, or vertebral point tenderness. No Meningismus. Chest/axilla: Normal chest wall appearance and motion. Nontender with no deformity. Cardiovascular: Regular rate and rhythm with a normal S1 and S2. No gallops, murmurs, or rubs. Normal PMI, no JVD. No pulse deficits. Respiratory: Lungs have equal breath sounds bilaterally, clear to auscultation and percussion. No rales, rhonchi or wheezes noted. No increased work of breathing, no retractions or nasal flaring. Abdomen/GI: Soft, non-tender, with normal bowel sounds. No distension or tympany. No guarding or rebound. No evidence of tenderness throughout. 08:07 Back: pain, that is moderate, ROM is painful, with all movement, muscle spasm, is appreciated in the left low back and right low back. Vital Signs: 06:31 BP 133 / 87; Pulse 96; Resp 18; Temp 98.4(TE); Pulse Ox 100% on R/A; Weight 67.13 kg kl (R); Height 5 ft. 3 in. ; Pain 10/10; 08:15 BP 141 / 91; Pulse 89; Resp 18; Temp 97.2; Pulse Ox 98% on R/A; ph 06:31 Body Mass Index 26.22 (67.13 kg, 160.02 cm) kl 06:31 Pain Scale: Adult kl MDM: 06:41 Patient medically screened. peg 08:07 Differential diagnosis: chronic back pain, DDD vs Cauda Equina. ms3 19:40 Data reviewed: vital signs, nurses notes, lab test result(s), EKG, radiologic studies, ms3 and as a result, I will discharge patient. 19:40 I considered the following discharge prescriptions or medication management in the md3 emergency department Medications were administered in the Emergency Department. See MAR. Independent interpretation of the following test(s) in the Emergency Department EKG: See my EKG interpretation above. Counseling: I had a detailed discussion with the patient and/or guardian regarding: the historical points, exam findings, and any diagnostic results supporting the discharge/admit diagnosis, lab results, radiology results, the need for outpatient follow up, to return to the emergency department if symptoms worsen or persist or if there are any questions or concerns that arise at home. ED course: Discussed labs, and radiology results with patient. Patient to follow-up with her primary care physician in 2 to 3 days. Patient understands and agrees with plan. All questions were answered. Return precautions were discussed include worsening symptoms, or any other concerns. On reevaluation patient was alert and oriented x4, in no apparent distress, nontoxic, ambulatory in the emergency department, speaking full sentences. 01/01 06:42 Order name: Basic Metabolic Panel; Complete Time: 08:57 [facility] 01/01 06:42 Order name: CBC with Diff; Complete Time: 08:57 [facility] 01/01 06:42 Order name: LFT's; Complete Time: 08:57 [facility] 01/01 06:42 Order name: Magnesium; Complete Time: 08:57 [facility] 01/01 06:42 Order name: NT PRO-BNP; Complete Time: 08:57 [facility] 01/01 06:42 Order name: Troponin HS; Complete Time: 08:57 [facility] 01/01 06:42 Order name: XRAY Chest (1 view); Complete Time: 08:57 [facility] 01/01 07:43 Order name: MRI Lumbar Spine wo Con; Complete Time: 08:57 [facility] 01/01 06:42 Order name: EKG; Complete Time: 06:43 [facility] 01/01 06:42 Order name: IV Saline Lock; Complete Time: 07:58 [facility] 01/01 06:42 Order name: O2 Sat Monitoring; Complete Time: 07:58 [facility] Administered Medications: 07:11 CANCELLED (Physician Discretion): Aspirin PO Chewable Tablet 81 mg PO once ph 07:27 CANCELLED (Physician Discretion): NS 0.9% IV 1000 ml IV at 1 bolus Per protocol; 1000 ph mL bolus 07:59 Drug: Ketamine IVP 0.2 mg/kg Route: IVP; Site: left antecubital; bp 10:04 Follow up: Response: No adverse reaction; Pain is decreased; RASS: Alert and Calm (0) ph Disposition Summary: 01/01/23 09:09 Discharge Ordered Location: Home ms3 Condition: Stable ms3 Diagnosis - Low back pain ms3 Followup: ms3 - With: Private Physician - When: 2 - 3 days - Reason: Recheck today's complaints Discharge Instructions: - Discharge Summary Sheet ms3 - Acute Back Pain, Adult ms3 Forms: - Family Work Release ph - Medication Reconciliation Form ms3 - Thank You Letter ms3 - Prescription Opioid Use ms3 Signatures: Dispatcher [employer] Lana Christianson, RN RN Aj Hurtado MD MD cha Peltier, Brian, RN RN Stanislav Mccloud DO DO ms3 Sophia Hamilton RN ph Corrections: (The following items were deleted from the chart) 07:11 06:42 Aspirin PO Chewable Tablet 81 mg PO once ordered. [facility] ph 07:24 06:42 Cardiac monitoring ordered. [facility] ms3 07:25 06:42 EKG - Nurse/Tech ordered. [facility] ms3 07:25 06:42 Labs collected and sent ordered. [facility] ms3 07:25 06:42 Oxygen Per Protocol ordered. [facility] ms3 07:27 06:42 NS 0.9% IV 1000 ml IV at 1 bolus Per protocol; 1000 mL bolus ordered. [facility] ph 07:40 06:43 Extrem Venous W Compression Antoine+US.RAD.BRZ ordered. EDMS EDMS 07:50 06:43 Test, Urine+UC.LAB.BRZ ordered. EDMS EDMS 07:51 06:43 PROTIME (+INR)+COAG.LAB.BRZ ordered. EDMS EDMS 07:51 06:43 Urinalysis+U.LAB.BRZ ordered. EDMS EDMS
[2023-01-01 10:13] VITALS: BP 141/91; TEMP 97.2; O2SAT 98
== END 2023-01-01 10:06 | disposition home or self-care (01) ==
LOC: ER 06:21
DX: M54.50 Low back pain, unspecified (principal); F17.210 Nicotine dependence, cigarettes, uncomplicated; Z88.0 Allergy status to penicillin; Z88.1 Allergy status to other antibiotic agents; Z88.5 Allergy status to narcotic agent; Z88.8 Allergy status to other drugs, medicaments and biological substances; Z91.040 Latex allergy status; Z91.048 Other nonmedicinal substance allergy status
CPT/HCPCS: 36415; 71045; 72148; 80048; 80076; 83735; 83880; 84484; 85025; 96374; 99284

== ENCOUNTER 2023-01-29 04:02 | Emergency (ER) | payer OTHER ==
--- OUTSIDE RECORDS SUMMARY | 2023-01-29 04:22 | XMS REPORT | Continuity of Care Document ---
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 Comment 2021-06-13 2021-06-13 occasional Jewish 00:00:00 00:00:00 Hospital Sex Assigned At [birth year] F Jewish 00:00:00 00:00:00 Hospital Smoking Status Start Date Stop Date Source Never smoked tobacco [facility] (finding) Occasional tobacco smoker 2022-12-22 00:00:00 Un iversity of [facility] Smokes tobacco daily 2021-06-13 00:00:00 [facility] Medications Ordered Filled Start Stop Current Ordering Indication Dosage Frequency Signature Comments Components Source Medication Medication Date Date Medication? Clinician (SIG) Name Name morpHINE (4 2022- No 4mg 4 mg, Slow Univers mg/mL) 01-21 IV Push, ity of injection 4 23:45: 23:08 ONCE, 1 [place] mg 00 :00 dose, On [facility] 01/21/23 at 1845, Routine ondansetron No 4mg 4 mg, Slow Univers (ZOFRAN 01-21 IV Push, ity of (PF)) 23:00: 23:08 ONCE, 1 [place] injection 4 00 :00 dose, On Medi shanice mg Ernestina [place] 01/21/23 at 1800, LUPE NaCl 0.9% 2022- No 1000mL at 999 Uni vers (NS) IV 01-21 mL/hr, ity of infusion 21:30: 23:45 Intravenou [place] 1,000 mL 00 :00 s, ONCE, 1 Medic al dose, On [facility] 01/21/23 at 1630, Routine FENTanyl PF 2022- No 50ug 50 mcg, Un travis (SUBLIMAZE 01-21 Slow IV ity o f (PF)) 21:15: 20:56 Push, [place] injection 00 :00 ONCE, 1 Medical 50 mcg dose, On [facility] 01/21/23 at 1615, Routine iopamidol 2022- No [id number] 50mL 50 mL, Univers (ISOVUE 01-21 Intravenou ity o f 370-500 mL) 21:00: 21:02 s, ONCE, 1 [place] injection 00 :00 dose, On Medica l 50 mL [facility] 01/21/23 at 1600, Routine ondansetron 2022- No 4mg 4 mg, Slow Univers (ZOFRAN 01-21 IV Push, ity of (PF)) 20:30: 20:55 ONCE, 1 [place] injection 4 00 :00 dose, On Medi shanice mg [facility] 01/21/23 at 1530, LUPE sucralfate 2022- Yes [id number] 1g Take 1 Univers 1 gram 01-21 tablet by ity of tablet 00:00: 04:59 mouth [place] 00 :00 before Medical meals and Branch at bedtime for 14 days. proMETHazin 2022- No 6.25mg 6.25 mg, Univers e 01-15 IV ity of (PHENERGAN) 16:00: 16:15 Piggyback, [place] 6.25 mg in 00 :00 at 200 Medical NaCl 0.9% mL/hr Branch (NS) 50 mL Administer piggyback over 15 Minutes, ONCE, 1 dose, On Wed01/15/23 at 1100, LUPE NaCl 0.9% 0 2022- No 1000mL at 999 Uni vers (NS) bolus 01-15- mL/hr, ity of infusion 15:00: 16:19 1,000 mL, [place] 1,000 mL 00 :00 IV Medical Infusion, Branch ONCE, 1 dose, On Wed01/15/23 at 1000, STAT famotidine 2022- No 20mg 20 mg, Univ ers (PEPCID 01-15 Slow IV ity of (PF)) 14:45: 14:48 Push, [place] injection 00 :00 ONCE, 1 Medical 20 mg dose, On Branch Wed01/15/23 at 0945, LUPE proMETHazin 2022- No 6.25mg 6.25 mg, Univers e 01-15 IV ity of (PHENERGAN) 14:45: 15:00 Piggyback, [place] 6.25 mg in 00 :00 at 200 Medical NaCl 0.9% mL/hr Branch (NS) 50 mL Administer piggyback over 15 Minutes, ONCE, 1 dose, On Wed01/15/23 at 0945, LUPE buPROPion 2022-0 2022- No 300mg Take 1 Univ ers XL 300 mg 01-15- tablet by ity of 24 hr 12:48: 00:00 mouth. [place] tablet 46 :00 Medical Branch maalox:diph 2022-0 2022- No 15mL 15 mL, Uni vers enhydrAMINE -12 -12 Oral, ity of :lidocaine 11:00: 10:58 ONCE, 1 [place] 2 % viscous 00 :00 dose, On Medi shanice 1:1:1 Fri Branch (FIRST-MOUT 01/15/23 at [facility]) 0600, oral Routine suspension 15 mL maalox:diph 2022-0 Yes [id number] 15mL Take 15 mL Univers enhydrAMINE 5-12 by mouth ity of :lidocaine 00:00: as needed [place] 2 % viscous 00 for Oral Medi shanice 1:1:1 mucositis Branch (EPIGASTRI C PAIN). ondansetron 2022-0 Yes [id number] 4mg Take 1 Univers (ZOFRAN) 4 5-12 tablet by ity of mg tablet 00:00: mouth [place] 00 every 8 Medical (eight) Branch hours as needed for Nausea and Vomiting (N/V). maalox:diph 3-0 Yes [id number] 15mL Take 15 mL Univers enhydrAMINE 5-12 by mouth ity of :lidocaine 00:00: as needed [place] 2 % viscous 00 for Oral Medi shanice 1:1:1 mucositis Branch (EPIGASTRI C PAIN). ondansetron 3-0 Yes [id number] 4mg Take 1 Univers (ZOFRAN) 4 5-12 tablet by ity of mg tablet 00:00: mouth [place] 00 every 8 Medical (eight) Branch hours as needed for Nausea and Vomiting (N/V). proMETHazin 3-0 Yes [id number] 25mg Take 1 Univers e 25 mg 5-12 tablet by ity of tablet 00:00: mouth [place] 00 every 6 Medical (six) Branch hours as needed for Nausea and Vomiting (N/V). sucralfate 2022-0 Yes [id number] 1g Take 1 U nivers 1 gram 5-12 tablet by ity of tablet 00:00: mouth [place] 00 before Medical meals and Branch at bedtime. esomeprazol 2022-0 Yes [id number] 40mg Take 1 Univers e (NEXIUM) 5-12 capsule by ity of 40 mg 00:00: mouth [place] capsule 00 daily with Medica l breakfast. Branch maalox:diph 2022-0 Yes [id number] 15mL Take 15 mL Univers enhydrAMINE 5-12 by mouth ity of :lidocaine 00:00: as needed [place] 2 % viscous 00 for Oral Medi shanice 1:1:1 mucositis Branch (EPIGASTRI C PAIN). ondansetron 3-0 Yes [id number] 4mg Take 1 Univers (ZOFRAN) 4 5-12 tablet by ity of mg tablet 00:00: mouth [place] 00 every 8 Medical (eight) Branch hours as needed for Nausea and Vomiting (N/V). proMETHazin 3-0 Yes [id number] 25mg Take 1 Univers e 25 mg 5-12 tablet by ity of tablet 00:00: mouth [place] 00 every 6 Medical (six) Branch hours as needed for Nausea and Vomiting (N/V). sucralfate 3-0 Yes [id number] 1g Take 1 U nivers 1 gram 5-12 tablet by ity of tablet 00:00: mouth [place] 00 before Medical meals and Branch at bedtime. esomeprazol Yes [id number] 40mg Take 1 Univers e (NEXIUM) 5-12 capsule by ity of 40 mg 00:00: mouth [place] capsule 00 daily with Medica l breakfast. Branch proMETHazin 2022- No [id number] 25mg Take 1 Univers e 25 mg 5-12 05-12 tablet by ity of tablet 00:00: 00:00 mouth [place] 00 :00 every 6 Medical (six) Branch hours as needed for Nausea and Vomiting (N/V). sucralfate 2022- No [id number] 1g Take 1 Univers 1 gram 5-12 05-12 tablet by ity of tablet 00:00: 00:00 mouth [place] 00 :00 before Medical meals and Branch at bedtime. esomeprazol 2022- No [id number] 40mg Take 1 Univers e (NEXIUM) 5-12 05-12 capsule by it y of 40 mg 00:00: 00:00 mouth [place] capsule 00 :00 daily with Medica l breakfast. Branch maalox:diph 2022- No 15mL 15 mL, Uni vers enhydrAMINE 12-31 Oral ity of :lidocaine 06:45: 05:52 ([place] & [place] 2 % viscous 00 :00 Swallow), Med ical 1:1:1 ONCE, 1 Branch (FIRST-MOUT dose, On HWASH BLM) Ernestina oral 12/31/22 at suspension 0145, 15 mL Routine iopamidol 2022- No [id number] 70mL 70 mL, Univers (ISOVUE 12-30 Intravenou ity o f 370-500 mL) 17:30: 17:25 s, ONCE, 1 [place] injection 00 :00 dose, On Medica l 70 mL Wed Branch 12/30/22 at 1230, Routine nitroglycer 2022- No [id number] .8mg 0.8 mg, Univers in 12-30 Sublingual ity of (NITROSTAT) 17:15: 17:15 , ONCE, 1 [place] sublingual 00 :00 dose, On Medic al tablet 0.8 Wed Branch mg 12/30/22 at 1215, Routine metoprolol No [id number] 100mg 100 mg, Univers tartrate 12-30 Oral, ity of (LOPRESSOR) 16:15: 16:41 ONCE, 1 [place] tablet 100 00 :00 dose, On Medic al mg Wed Branch 12/30/22 at 1141, Routine valACYclovi Yes [id number] 1g Take 1 Univers r 1 gram 4-21 tablet by ity of tablet 00:00: mouth in [place] [address] the [facility] morning [place] and 1 tablet at noon and 1 tablet in the evening. valACYclovi Yes [id number] 1g Take 1 Univers r 1 gram 4-21 tablet by ity of tablet 00:00: mouth in [address] and 1 tablet at noon and 1 tablet in the evening. valACYclovi Yes [id number] 1g Take 1 Univers r 1 gram 4-21 tablet by ity of tablet 00:00: mouth in [address] morning [place] and 1 tablet at noon and 1 tablet in the evening. valACYclovi Yes [id number] 1g Take 1 Univers r 1 gram 4-21 tablet by ity of tablet 00:00: mouth in [address] and 1 tablet at noon and 1 tablet in the evening. valACYclovi Yes [id number] 1g Take 1 Univers r 1 gram 4-21 tablet by ity of tablet 00:00: mouth in [address] morning [place] and 1 tablet at noon and 1 tablet in the evening. valACYclovi 0 Yes [id number] 1g Take 1 Univers r 1 gram 4-21 tablet by ity of tablet 00:00: mouth in [address] morning [place] and 1 tablet at noon and 1 tablet in the evening. valACYclovi Yes [id number] 1g Take 1 Univers r 1 gram 4-21 tablet by ity of tablet 00:00: mouth in [address] and 1 tablet at noon and 1 tablet in the evening. valACYclovi 0 Yes [id number] 1g Take 1 Univers r 1 gram 4-21 tablet by ity of tablet 00:00: mouth in [place] 00 the Medical morning Branch and 1 tablet at noon and 1 tablet in the evening. valACYclovi 2022-0 Yes [id number] 1g Take 1 Univers r 1 gram 4-21 tablet by ity of tablet 00:00: mouth in [place] 00 the Medical morning Branch and 1 tablet at noon and 1 tablet in the evening. valACYclovi 2022-0 Yes [id number] 1g Take 1 Univers r 1 gram 4-21 tablet by ity of tablet 00:00: mouth in [place] 00 the Medical morning Branch and 1 tablet at noon and 1 tablet in the evening. valACYclovi 2022-0 Yes [id number] 1g Take 1 Univers r 1 gram 4-21 tablet by ity of tablet 00:00: mouth in [place] 00 the Medical morning Branch and 1 tablet at noon and 1 tablet in the evening. valACYclovi 2022-0 Yes [id number] 1g Take 1 Univers r 1 gram 4-21 tablet by ity of tablet 00:00: mouth in [place] 00 the Medical morning Branch and 1 tablet at noon and 1 tablet in the evening. valACYclovi 2022-0 Yes [id number] 1g Take 1 Univers r 1 gram 4-21 tablet by ity of tablet 00:00: mouth in [place] 00 the Medical morning Branch and 1 tablet at noon and 1 tablet in the evening. valACYclovi 0 Yes [id number] 1g Take 1 Univers r 1 gram 4-21 tablet by ity of tablet 00:00: mouth in [place] 00 the Medical morning Branch and 1 tablet at noon and 1 tablet in the evening. valACYclovi 2022-0 2022- No [id number] 1g Take 1 Univers r 1 gram 4-21 05-12 tablet by ity o f tablet 00:00: 00:00 mouth in [place] 00 :00 the Medical morning Branch and 1 tablet at noon and 1 tablet in the evening. valACYclovi 0 2022- Yes [id number] 1g Take 1 Univers r 1 gram 4-21 04-29 tablet by ity o f tablet 00:00: 04:59 mouth in [place] 00 :00 the Medical morning Branch and 1 tablet at noon and 1 tablet in the evening. Do all this for 7 days. valACYclovi 2022-0 2022- No [id number] 1g Take 1 Univers r 1 gram 4-21 04-21 tablet by ity o f tablet 00:00: 00:00 mouth in [place] 00 :00 the Medical morning Branch and 1 tablet at noon and 1 tablet in the evening. Do all this for 7 days. levETIRAcet 2022-0 Yes TWICE Unive rs am 500 mg 4-18 DAILY. ity of tablet 09:12: [address] gabapentin 2022-0 Yes gabapentin U nivers 300 mg 4-18 300 mg ity of capsule 09:12: capsule [address] famotidine 2022-0 Yes famotidine U nivers 20 mg 4-18 20 mg ity of tablet 09:12: tablet [address] clonazePAM 2022-0 Yes clonazepam U nivers 0.5 mg 4-18 0.5 mg ity of tablet 09:12: tablet [place] [address] TAKE 1 Medical TABLET BY Branch MOUTH EVERY DAY AT BEDTIME NEEDED FOR SEVERE ANXIETY/PA STACEY ATTACK buPROPion 2022-0 Yes 300mg Take 1 Unive rs XL 300 mg 4-18 tablet by ity o f 24 hr 09:12: mouth. [address] buprenorphi 2022-0 Yes [place] Uni vers ne HCL 4-18 [...] Med ical ion Branch aerosol inhaler levETIRAcet 2022-0 Yes TWICE Unive rs am 500 mg 4-18 DAILY. ity of tablet 09:12: [address] gabapentin 2022-0 Yes gabapentin U nivers 300 mg 4-18 300 mg ity of capsule 09:12: capsule [address] famotidine 2022-0 Yes famotidine U nivers 20 mg 4-18 20 mg ity of tablet 09:12: tablet [address] clonazePAM 2022-0 Yes clonazepam U nivers 0.5 mg 4-18 0.5 mg ity of tablet 09:12: tablet [place] 14 TAKE 1 Medical TABLET BY Branch MOUTH EVERY DAY AT BEDTIME NEEDED FOR SEVERE ANXIETY/PA STACEY ATTACK buPROPion 2022-0 Yes 300mg Take 1 Unive rs XL 300 mg 4-18 tablet by ity o f 24 hr 09:12: mouth. [place] tablet 14 Medical Branch buprenorphi 0 Yes [place] Uni vers ne HCL 4-18 [...] mg 4-18 DAILY. ity of tablet 09:12: [address] gabapentin 0 Yes gabapentin U nivers 300 mg 4-18 300 mg ity of capsule 09:12: capsule [address] famotidine 2022-0 Yes famotidine U nivers 20 mg 4-18 20 mg ity of tablet 09:12: tablet [address] clonazePAM 2022-0 Yes clonazepam U nivers 0.5 mg 4-18 0.5 mg ity of tablet 09:12: tablet [place] 14 TAKE 1 Medical TABLET BY Branch MOUTH EVERY DAY AT BEDTIME NEEDED FOR SEVERE ANXIETY/PA STACEY ATTACK buPROPion 2022-0 Yes 300mg Take 1 Unive rs XL 300 mg 4-18 tablet by ity o f 24 hr 09:12: mouth. [place] tablet 14 [facility] buprenorphi 0 Yes [place] Uni vers ne HCL 4-18 [...] mg 4-18 DAILY. ity of tablet 09:12: [address] gabapentin Yes gabapentin U nivers 300 mg 4-18 300 mg ity of capsule 09:12: capsule [address] famotidine Yes famotidine U nivers 20 mg 4-18 20 mg ity of tablet 09:12: tablet [address] clonazePAM Yes clonazepam U nivers 0.5 mg 4-18 0.5 mg ity of tablet 09:12: tablet [place] [address] TAKE 1 Medical TABLET BY Branch MOUTH EVERY DAY AT BEDTIME NEEDED FOR SEVERE ANXIETY/PA STACEY ATTACK buPROPion Yes 300mg Take 1 Unive rs XL 300 mg 4-18 tablet by ity o f 24 hr 09:12: mouth. [place] tablet 14 [facility] buprenorphi Yes [place] Uni vers ne HCL [...] mg 4-18 DAILY. ity of tablet 09:12: [address] gabapentin 0 Yes gabapentin U nivers 300 mg 4-18 300 mg ity of capsule 09:12: capsule [address] famotidine 0 Yes famotidine U nivers 20 mg 4-18 20 mg ity of tablet 09:12: tablet [address] clonazePAM 0 Yes clonazepam U nivers 0.5 mg 4-18 0.5 mg ity of tablet 09:12: tablet [place] [address] TAKE 1 Medical TABLET BY Branch MOUTH EVERY DAY AT BEDTIME NEEDED FOR SEVERE ANXIETY/PA STACEY ATTACK buPROPion 0 Yes 300mg Take 1 Unive rs XL 300 mg 4-18 tablet by ity o f 24 hr 09:12: mouth. [address] buprenorphi Yes [place] Uni vers ne [...] mg 4-18 DAILY. ity of tablet 09:12: [address] gabapentin Yes gabapentin U nivers 300 mg 4-18 300 mg ity of capsule 09:12: capsule [address] famotidine 2022-0 Yes famotidine U nivers 20 mg 4-18 20 mg ity of tablet 09:12: tablet [address] clonazePAM 0 Yes clonazepam U nivers 0.5 mg 4-18 0.5 mg ity of tablet 09:12: tablet [place] [address] TAKE 1 Medical TABLET BY Branch MOUTH EVERY DAY AT BEDTIME NEEDED FOR SEVERE ANXIETY/PA STACEY ATTACK buPROPion 0 Yes 300mg Take 1 Unive rs XL 300 mg 4-18 tablet by ity o f 24 hr 09:12: mouth. [place] tablet 14 [facility] buprenorphi Yes [place] Uni vers ne HCL [...] mg 4-18 DAILY. ity of tablet 09:12: [address] gabapentin Yes gabapentin U nivers 300 mg 4-18 300 mg ity of capsule 09:12: capsule [address] famotidine 0 Yes famotidine U nivers 20 mg 4-18 20 mg ity of tablet 09:12: tablet [address] clonazePAM 0 Yes clonazepam U nivers 0.5 mg 4-18 0.5 mg ity of tablet 09:12: tablet [place] [address] TAKE 1 Medical TABLET BY Branch MOUTH EVERY DAY AT BEDTIME NEEDED FOR SEVERE ANXIETY/PA STACEY ATTACK buPROPion 0 Yes 300mg Take 1 Unive rs XL 300 mg 4-18 tablet by ity o f 24 hr 09:12: mouth. [place] tablet 14 [facility] buprenorphi Yes [place] Uni vers ne HCL [...] mg 4-18 DAILY. ity of tablet 09:12: [address] gabapentin Yes gabapentin U nivers 300 mg 4-18 300 mg ity of capsule 09:12: capsule [address] famotidine Yes famotidine U nivers 20 mg 4-18 20 mg ity of tablet 09:12: tablet [address] clonazePAM Yes clonazepam U nivers 0.5 mg 4-18 0.5 mg ity of tablet 09:12: tablet [place] [address] TAKE 1 Medical TABLET BY Branch MOUTH EVERY DAY AT BEDTIME NEEDED FOR SEVERE ANXIETY/PA STACEY ATTACK buPROPion Yes 300mg Take 1 Unive rs XL 300 mg 4-18 tablet by ity o f 24 hr 09:12: mouth. [address] buprenorphi Yes [place] Uni vers ne [...] mg 4-18 DAILY. ity of tablet 09:12: [address] gabapentin Yes gabapentin U nivers 300 mg 4-18 300 mg ity of capsule 09:12: capsule [address] famotidine Yes famotidine U nivers 20 mg 4-18 20 mg ity of tablet 09:12: tablet [address] clonazePAM 0 Yes clonazepam U nivers 0.5 mg 4-18 0.5 mg ity of tablet 09:12: tablet [place] 14 TAKE 1 Medical TABLET BY Branch MOUTH EVERY DAY AT BEDTIME NEEDED FOR SEVERE ANXIETY/PA STACEY ATTACK buPROPion 0 Yes 300mg Take 1 Unive rs XL 300 mg 4-18 tablet by ity o f 24 hr 09:12: mouth. [place] tablet 14 [facility] buprenorphi Yes [place] Uni vers ne HCL [...] [place] inhal[place] [facility] levETIRAcet Yes TWICE Unive rs am 500 mg 4-18 DAILY. ity of tablet 09:12: [address] gabapentin Yes gabapentin U nivers 300 mg 4-18 300 mg ity of capsule 09:12: capsule [address] famotidine 0 Yes famotidine U nivers 20 mg 4-18 20 mg ity of tablet 09:12: tablet [address] clonazePAM 2022-0 Yes clonazepam U nivers 0.5 mg 4-18 0.5 mg ity of tablet 09:12: tablet [place] [address] TAKE 1 Medical TABLET BY Branch MOUTH EVERY DAY AT BEDTIME NEEDED FOR SEVERE ANXIETY/PA STACEY ATTACK buPROPion 2022-0 Yes 300mg Take 1 Unive rs XL 300 mg 4-18 tablet by ity o f 24 hr 09:12: mouth. [place] tablet 14 [facility] buprenorphi Yes [place] Uni vers ne HCL [...] mg 4-18 DAILY. ity of tablet 09:12: [address] gabapentin Yes gabapentin U nivers 300 mg 4-18 300 mg ity of capsule 09:12: capsule [address] famotidine Yes famotidine U nivers 20 mg 4-18 20 mg ity of tablet 09:12: tablet [address] clonazePAM 0 Yes clonazepam U nivers 0.5 mg 4-18 0.5 mg ity of tablet 09:12: tablet [place] [address] TAKE 1 Medical TABLET BY Branch MOUTH EVERY DAY AT BEDTIME NEEDED FOR SEVERE ANXIETY/PA STACEY ATTACK buPROPion 0 Yes 300mg Take 1 Unive rs XL 300 mg 4-18 tablet by ity o f 24 hr 09:12: mouth. [place] tablet [address] [place] [address] buprenorphi Yes [place] Uni vers ne HCL [...] mg 4-18 DAILY. ity of tablet 09:12: [address] gabapentin 0 Yes gabapentin U nivers 300 mg 4-18 300 mg ity of capsule 09:12: capsule [address] famotidine 0 Yes famotidine U nivers 20 mg 4-18 20 mg ity of tablet 09:12: tablet [address] clonazePAM 0 Yes clonazepam U nivers 0.5 mg 4-18 0.5 mg ity of tablet 09:12: tablet [place] 14 TAKE 1 Medical TABLET BY Branch MOUTH EVERY DAY AT BEDTIME NEEDED FOR SEVERE ANXIETY/PA STACEY ATTACK buPROPion 0 Yes 300mg Take 1 Unive rs XL 300 mg 4-18 tablet by ity o f 24 hr 09:12: mouth. [facility] 14 [facility] buprenorphi Yes [place] Uni vers ne HCL [...] mg 4-18 DAILY. ity of tablet 09:12: [address] gabapentin 2022-0 Yes gabapentin U nivers 300 mg 4-18 300 mg ity of capsule 09:12: capsule [address] famotidine 2022-0 Yes famotidine U nivers 20 mg 4-18 20 mg ity of tablet 09:12: tablet [address] clonazePAM 2022-0 Yes clonazepam U nivers 0.5 mg 4-18 0.5 mg ity of tablet 09:12: tablet [place] 14 TAKE 1 Medical TABLET BY Branch MOUTH EVERY DAY AT BEDTIME NEEDED FOR SEVERE ANXIETY/PA STACEY ATTACK buprenorphi Yes [place] Uni vers ne HCL [...] mg 4-18 DAILY. ity of tablet 09:12: [address] gabapentin Yes gabapentin U nivers 300 mg 4-18 300 mg ity of capsule 09:12: capsule [address] famotidine Yes famotidine U nivers 20 mg 4-18 20 mg ity of tablet 09:12: tablet [address] clonazePAM Yes clonazepam U nivers 0.5 mg 4-18 0.5 mg ity of tablet 09:12: tablet [place] [address] TAKE 1 Medical TABLET BY Branch MOUTH EVERY DAY AT BEDTIME NEEDED FOR SEVERE ANXIETY/PA STACEY ATTACK buprenorphi Yes [place] Uni vers ne HCL [...] Med ical ion Branch aerosol inhaler aspirin 2022- No 162mg 162 mg, Unive rs chewable 12-19 Oral, ONCE ity of tablet 162 10:30: 09:42 NOW, 1 [place] mg 00 :00 dose, On Medical Sat Branch 12/19/22 at 0530, Routine iopamidol 2022- No [id number] 99mL 99 mL, U nivers (ISOVUE 12-19 Intravenou ity o f 370-500 mL) 09:20: 09:30 s, ONCE, 1 [place] injection 00 :00 dose, On Medica l 99 mL Sat Branch 12/19/22 at 0430, Routine adalimumab Yes 40mg inject 1 Uni vers (HUMIRA) 40 4-11 Syringe ity o f mg/0.8 mL 10:43: under the [place] injection 17 skin. Medical Branch ibuprofen Yes ibuprofen Uni vers 800 mg 4-11 800 mg ity of tablet 10:43: tablet [address] Branch adalimumab 2022-0 Yes 40mg inject 1 Uni vers (HUMIRA) 40 4-11 Syringe ity o f mg/0.8 mL 10:43: under the [place] injection 17 skin. Medical Branch ibuprofen Yes ibuprofen Uni vers 800 mg 4-11 800 mg ity of tablet 10:43: tablet [address] Branch adalimumab 2022-0 Yes 40mg inject 1 Uni vers (HUMIRA) 40 4-11 Syringe ity o f mg/0.8 mL 10:43: under the [place] injection 17 skin. Medical Branch ibuprofen 2022-0 Yes ibuprofen Uni vers 800 mg 4-11 800 mg ity of tablet 10:43: tablet [address] Branch adalimumab 2022-0 Yes 40mg inject 1 Uni vers (HUMIRA) 40 4-11 Syringe ity o f mg/0.8 mL 10:43: under the [place] injection 17 skin. Medical Branch ibuprofen 0 Yes ibuprofen Uni vers 800 mg 4-11 800 mg ity of tablet 10:43: tablet [address] Branch adalimumab 2022-0 Yes 40mg inject 1 [...] of tablet 10:43: tablet Medical Branch adalimumab 0 Yes 40mg inject 1 Uni vers (HUMIRA) 40 4-11 Syringe ity o f mg/0.8 mL 10:43: under the [place] injection 17 skin. Medical Branch ibuprofen Yes ibuprofen Uni vers 800 mg 4-11 800 mg ity of tablet 10:43: tablet Medical Branch adalimumab 0 Yes 40mg inject 1 Uni vers (HUMIRA) [...] of tablet 10:43: tablet Medical Branch adalimumab 0 Yes 40mg inject 1 Uni vers (HUMIRA) 40 4-11 Syringe ity o f mg/0.8 mL 10:43: under the [place] injection 17 skin. Medical Branch ibuprofen 0 Yes ibuprofen Uni vers 800 mg 4-11 800 mg ity of tablet 10:43: tablet Medical Branch adalimumab 0 Yes 40mg inject 1 Uni vers (HUMIRA) 40 4-11 Syringe ity o f mg/0.8 mL 10:43: under the [place] injection 17 skin. Medical Branch ibuprofen Yes ibuprofen Uni vers 800 mg 4-11 800 mg ity of tablet 10:43: tablet Medical Branch adalimumab 0 Yes 40mg inject 1 Uni vers (HUMIRA) 40 4-11 Syringe ity o f mg/0.8 mL 10:43: under the [place] injection 17 skin. Medical Branch ibuprofen Yes ibuprofen Uni vers 800 mg 4-11 800 mg ity of tablet 10:43: tablet Medical Branch adalimumab 0 Yes 40mg inject 1 Uni vers (HUMIRA) [...] 800 mg ity of tablet 10:43: tablet [place] 17 Medical Branch adalimumab 2022-0 Yes 40mg inject 1 Uni vers (HUMIRA) 40 4-11 Syringe ity o f mg/0.8 mL 10:43: under the [place] injection 17 skin. Medical Branch ibuprofen 2022-0 Yes ibuprofen Uni vers 800 mg 4-11 800 mg ity of tablet 10:43: tablet [address] adalimumab 2022-0 Yes 40mg inject 1 Uni vers (HUMIRA) 40 4-11 Syringe ity o f mg/0.8 mL 10:43: under the [place] injection 17 skin. Medical Branch ibuprofen 0 Yes ibuprofen Uni vers 800 mg 4-11 800 mg ity of tablet 10:43: tablet [address] adalimumab 2022-0 Yes 40mg inject 1 Uni vers (HUMIRA) 40 4-11 Syringe ity o f mg/0.8 mL 10:43: under the [place] injection 17 skin. Medical Branch ibuprofen 2022-0 Yes ibuprofen Uni vers 800 mg 4-11 800 mg ity of tablet 10:43: tablet [address] Branch adalimumab 2022-0 Yes 40mg inject 1 Uni vers (HUMIRA) 40 4-11 Syringe ity o f mg/0.8 mL 10:43: under the [place] injection 17 skin. Medical Branch ibuprofen 0 Yes ibuprofen Uni vers 800 mg 4-11 800 mg ity of tablet 10:43: tablet [address] adalimumab 2022-0 Yes 40mg inject 1 Uni vers (HUMIRA) 40 4-11 Syringe ity o f mg/0.8 mL 10:43: under the [place] as injection 17 skin. Medical Branch ibuprofen 2022-0 Yes ibuprofen Uni vers 800 mg 4-11 800 mg ity of tablet 10:43: tablet [address] Branch pregabalin 2022-0 Yes 150mg Take 1 Univ ers 150 mg 3-30 capsule by ity of capsule 00:00: mouth in 00 the Medical morning Branch and 1 capsule in the evening. meloxicam 0 Yes Univers 15 mg 3-30 ity of tablet 00:00: [place] 00 Medical Branch HYDROcodone 2022-0 Yes 1{tbl} Take 1 Un travis -acetaminop 3-30 tablet by ity of hen 5-325 00:00: mouth 4 [place] mg tablet 00 (four) Medical times Branch daily. pregabalin 2022-0 Yes 150mg Take 1 Univ ers 150 mg 3-30 capsule by ity of capsule 00:00: mouth in [place] the Medical morning Branch and 1 capsule in the evening. meloxicam 2023-0 Yes Univers 15 mg 3-30 ity of tablet 00:00: [place] [facility] Branch HYDROcodone 2023-0 Yes 1{tbl} Take 1 Un travis -acetaminop 3-30 tablet by ity of hen 5-325 00:00: mouth 4 [place] mg tablet ([facility]) Medical times [place] daily. pregabalin 2023-0 Yes 150mg Take 1 Univ ers 150 mg 3-30 capsule by ity of capsule 00:00: mouth in [place] the Medical morning Branch and 1 capsule in the evening. meloxicam 2023-0 Yes Univers 15 mg 3-30 ity of tablet 00:00: [address] Branch HYDROcodone 2023-0 Yes 1{tbl} Take 1 Un travis -acetaminop 3-30 tablet by ity of hen 5-325 00:00: mouth 4 [place] mg tablet ([facility]) Medical times [place] daily. pregabalin 2023-0 Yes 150mg Take 1 Univ ers 150 mg 3-30 capsule by ity of capsule 00:00: mouth in [place] the [facility] morning Branch and 1 capsule in the evening. meloxicam 2023-0 Yes Univers 15 mg 3-30 ity of tablet 00:00: [place] [facility] Branch HYDROcodone 2023-0 Yes 1{tbl} Take 1 Un travis -acetaminop 3-30 tablet by ity of hen 5-325 00:00: mouth 4 [place] mg tablet ([facility]) Medical times [place] daily. pregabalin 2023-0 Yes 150mg Take 1 Univ ers 150 mg 3-30 capsule by ity of capsule 00:00: mouth in [place] the Medical morning Branch and 1 capsule in the evening. meloxicam 2023-0 Yes Univers 15 mg 3-30 ity of tablet 00:00: [place] [facility] Branch HYDROcodone 2023-0 Yes 1{tbl} Take 1 Un travis -acetaminop 3-30 tablet by ity of hen 5-325 00:00: mouth 4 [place] mg tablet ([facility]) Medical times [place] daily. pregabalin 2023-0 Yes 150mg Take 1 Univ ers 150 mg 3-30 capsule by ity of capsule 00:00: mouth in [place] the Medical morning Branch and 1 capsule in the evening. meloxicam 2023-0 Yes Univers 15 mg 3-30 ity of tablet 00:00: [place] [facility] Branch HYDROcodone 2023-0 Yes 1{tbl} Take 1 Un travis -acetaminop 3-30 tablet by ity of hen 5-325 00:00: mouth 4 [place] mg tablet 00 ([facility]) Medical times [place] daily. pregabalin 2023-0 Yes 150mg Take 1 Univ ers 150 mg 3-30 capsule by ity of capsule 00:00: mouth in [place] [address] the Medical morning Branch and 1 capsule in the evening. meloxicam 2023-0 Yes Univers 15 mg 3-30 ity of tablet 00:00: [address] Branch HYDROcodone 2023-0 Yes 1{tbl} Take 1 Un travis -acetaminop 3-30 tablet by ity of hen 5-325 00:00: mouth 4 [place] mg tablet ([facility]) [facility] times [place] daily. pregabalin 2023-0 Yes 150mg Take 1 Univ ers 150 mg 3-30 capsule by ity of capsule 00:00: mouth in [place] [address] the [facility] morning Branch and 1 capsule in the evening. meloxicam 2023-0 Yes Univers 15 mg 3-30 ity of tablet 00:00: [place] [facility] Branch HYDROcodone 2023-0 Yes 1{tbl} Take 1 Un travis -acetaminop 3-30 tablet by ity of hen 5-325 00:00: mouth 4 [place] mg tablet ([facility]) [facility] times [place] daily. pregabalin 2023-0 Yes 150mg Take 1 Univ ers 150 mg 3-30 capsule by ity of capsule 00:00: mouth in [place] [address] the [facility] morning Branch and 1 capsule in the evening. meloxicam 2023-0 Yes Univers 15 mg 3-30 ity of tablet 00:00: [address] Branch HYDROcodone 2023-0 Yes 1{tbl} Take 1 Un travis -acetaminop 3-30 tablet by ity of hen 5-325 00:00: mouth 4 [place] mg tablet 00 (four) Medical times [place] daily. pregabalin 2023-0 Yes 150mg Take 1 Univ ers 150 mg 3-30 capsule by ity of capsule 00:00: mouth in [place] [address] the Medical morning Branch and 1 capsule in the evening. meloxicam 2023-0 Yes Univers 15 mg 3-30 ity of tablet 00:00: [place] 00 Medical Branch HYDROcodone 2023-0 Yes 1{tbl} Take 1 Un travis -acetaminop 3-30 tablet by ity of hen 5-325 00:00: mouth 4 [place] mg tablet 00 (four) Medical times [place] daily. pregabalin 2023-0 Yes 150mg Take 1 Univ ers 150 mg 3-30 capsule by ity of capsule 00:00: mouth in [place] 00 the Medical morning Branch and 1 capsule in the evening. meloxicam 2023-0 Yes Univers 15 mg 3-30 ity of tablet 00:00: [place] 00 Medical Branch HYDROcodone 2023-0 Yes 1{tbl} Take 1 Un travis -acetaminop 3-30 tablet by ity of hen 5-325 00:00: mouth 4 [place] mg tablet 00 ([facility]) Medical times [place] daily. pregabalin 2023-0 Yes 150mg Take 1 Univ ers 150 mg 3-30 capsule by ity of capsule 00:00: mouth in [place] the Medical morning Branch and 1 capsule in the evening. meloxicam 2023-0 Yes Univers 15 mg 3-30 ity of tablet 00:00: [place] 00 [facility] Branch HYDROcodone 2023-0 Yes 1{tbl} Take 1 Un travis -acetaminop 3-30 tablet by ity of hen 5-325 00:00: mouth 4 [place] mg tablet 00 ([facility]) [facility] times [place] daily. pregabalin 2023-0 Yes 150mg Take 1 Univ ers 150 mg 3-30 capsule by ity of capsule 00:00: mouth in [place] 00 the Medical morning Branch and 1 capsule in the evening. meloxicam 2023-0 Yes Univers 15 mg 3-30 ity of tablet 00:00: [place] 00 [facility] Branch HYDROcodone 2023-0 Yes 1{tbl} Take 1 Un travis -acetaminop 3-30 tablet by ity of hen 5-325 00:00: mouth 4 [place] mg tablet 00 (four) Medical times [place] daily. pregabalin 2023-0 Yes 150mg Take 1 Univ ers 150 mg 3-30 capsule by ity of capsule 00:00: mouth in [place] 00 the Medical morning Branch and 1 capsule in the evening. meloxicam 2023-0 Yes Univers 15 mg 3-30 ity of tablet 00:00: [place] [facility] Branch HYDROcodone 2023-0 Yes 1{tbl} Take 1 Un travis -acetaminop 3-30 tablet by ity of hen 5-325 00:00: mouth 4 [place] mg tablet 00 ([facility]) [facility] times [place] daily. pregabalin 2023-0 Yes 150mg Take 1 Univ ers 150 mg 3-30 capsule by ity of capsule 00:00: mouth in [place] the Medical morning Branch and 1 capsule in the evening. meloxicam 2023-0 Yes Univers 15 mg 3-30 ity of tablet 00:00: [place] [facility] Branch HYDROcodone 2023-0 Yes 1{tbl} Take 1 Un travis -acetaminop 3-30 tablet by ity of hen 5-325 00:00: mouth 4 [place] mg tablet ([facility]) [facility] times [place] daily. pregabalin 2023-0 Yes 150mg Take 1 Univ ers 150 mg 3-30 capsule by ity of capsule 00:00: mouth in [place] the [facility] morning Branch and 1 capsule in the evening. meloxicam 2023-0 Yes Univers 15 mg 3-30 ity of tablet 00:00: [place] [facility] Branch HYDROcodone 2023-0 Yes 1{tbl} Take 1 Un travis -acetaminop 3-30 tablet by ity of hen 5-325 00:00: mouth 4 [place] mg tablet ([facility]) [facility] times [place] daily. pregabalin 2023-0 Yes 150mg Take 1 Univ ers 150 mg 3-30 capsule by ity of capsule 00:00: mouth in [place] the [facility] morning Branch and 1 capsule in the evening. meloxicam 2023-0 Yes Univers 15 mg 3-30 ity of tablet 00:00: [place] [facility] Branch HYDROcodone 2023-0 Yes 1{tbl} Take 1 Un travis -acetaminop 3-30 tablet by ity of hen 5-325 00:00: mouth 4 [place] mg tablet ([facility]) Medical times [place] daily. pregabalin 2023-0 Yes 150mg Take 1 Univ ers 150 mg 3-30 capsule by ity of capsule 00:00: mouth in [place] [address] the [facility] morning Branch and 1 capsule in the evening. meloxicam 2023-0 Yes Univers 15 mg 3-30 ity of tablet 00:00: [place] [facility] Branch HYDROcodone 2023-0 Yes 1{tbl} Take 1 Un travis -acetaminop 3-30 tablet by ity of hen 5-325 00:00: mouth 4 [place] mg tablet 00 ([facility]) Medical times [place] daily. pregabalin 2023-0 Yes 150mg Take 1 Univ ers 150 mg 3-30 capsule by ity of capsule 00:00: mouth in [place] the Medical morning Branch and 1 capsule in the evening. meloxicam 2023-0 Yes Univers 15 mg 3-30 ity of tablet 00:00: [place] [facility] Branch HYDROcodone 2023-0 Yes 1{tbl} Take 1 Un travis -acetaminop 3-30 tablet by ity of hen 5-325 00:00: mouth 4 [place] mg tablet ([facility]) [facility] times [place] daily. pregabalin 2023-0 Yes 150mg Take 1 Univ ers 150 mg 3-30 capsule by ity of capsule 00:00: mouth in [place] [address] the [facility] morning Branch and 1 capsule in the evening. meloxicam 2023-0 Yes Univers 15 mg 3-30 ity of tablet 00:00: [place] [facility] Branch HYDROcodone 2023-0 Yes 1{tbl} Take 1 Un travis -acetaminop 3-30 tablet by ity of hen 5-325 00:00: mouth 4 [place] mg tablet ([facility]) [facility] times [place] daily. pregabalin 2023-0 Yes 150mg Take 1 Univ ers 150 mg 3-30 capsule by ity of capsule 00:00: mouth in [place] [address] the [facility] morning Branch and 1 capsule in the evening. meloxicam 2023-0 Yes Univers 15 mg 3-30 ity of tablet 00:00: [place] [facility] Branch HYDROcodone 2023-0 Yes 1{tbl} Take 1 Un travis -acetaminop 3-30 tablet by ity of hen 5-325 00:00: mouth 4 [place] mg tablet ([facility]) Medical times [place] daily. pregabalin 2023-0 Yes 150mg Take 1 Univ ers 150 mg 3-30 capsule by ity of capsule 00:00: mouth in [place] [address] the Medical morning Branch and 1 capsule in the evening. meloxicam 2023-0 Yes Univers 15 mg 3-30 ity of tablet 00:00: [place] [facility] Branch HYDROcodone 2023-0 Yes 1{tbl} Take 1 Un travis -acetaminop 3-30 tablet by ity of hen 5-325 00:00: mouth 4 [place] mg tablet 00 ([facility]) Medical times [place] daily. pregabalin 2023-0 Yes 150mg Take 1 Univ ers 150 mg 3-30 capsule by ity of capsule 00:00: mouth in [place] [address] the Medical morning Branch and 1 capsule in the evening. meloxicam 2023-0 Yes Univers 15 mg 3-30 ity of tablet 00:00: [address] Branch HYDROcodone 2023-0 Yes 1{tbl} Take 1 Un travis -acetaminop 3-30 tablet by ity of hen 5-325 00:00: mouth 4 [place] mg tablet 00 ([facility]) Medical times [place] daily. pregabalin 2023-0 Yes 150mg Take 1 Univ ers 150 mg 3-30 capsule by ity of capsule 00:00: mouth in [place] [address] the [facility] morning Branch and 1 capsule in the evening. meloxicam 2023-0 Yes Univers 15 mg 3-30 ity of tablet 00:00: [place] [facility] Branch HYDROcodone 2023-0 Yes 1{tbl} Take 1 Un travis -acetaminop 3-30 tablet by ity of hen 5-325 00:00: mouth 4 [place] mg tablet 00 ([facility]) [facility] times [place] daily. pregabalin 2023-0 Yes 150mg Take 1 Univ ers 150 mg 3-30 capsule by ity of capsule 00:00: mouth in [place] [address] the [facility] morning Branch and 1 capsule in the evening. meloxicam 2023-0 Yes Univers 15 mg 3-30 ity of tablet 00:00: [address] Branch HYDROcodone 2023-0 Yes 1{tbl} Take 1 Un travis -acetaminop 3-30 tablet by ity of hen 5-325 00:00: mouth 4 [place] mg tablet ([facility]) Medical times [place] daily. pregabalin 2023-0 Yes 150mg Take 1 Univ ers 150 mg 3-30 capsule by ity of capsule 00:00: mouth in [place] [address] the [facility] morning Branch and 1 capsule in the evening. meloxicam 2023-0 Yes Univers 15 mg 3-30 ity of tablet 00:00: [address] Branch HYDROcodone 2023-0 Yes 1{tbl} Take 1 Un travis -acetaminop 3-30 tablet by ity of hen 5-325 00:00: mouth 4 [place] mg tablet 00 (four) Medical times Branch daily. pregabalin 2023-0 Yes 150mg Take 1 Univ ers 150 mg 3-30 capsule by ity of capsule 00:00: mouth in [place] the Medical morning Branch and 1 capsule in the evening. meloxicam 2023-0 Yes Univers 15 mg 3-30 ity of tablet 00:00: [place] Medical Branch HYDROcodone 2023-0 Yes 1{tbl} Take 1 Un travis -acetaminop 3-30 tablet by ity of hen 5-325 00:00: mouth 4 [place] mg tablet 00 (four) Medical times Branch daily. pregabalin 2023-0 Yes 150mg Take 1 Univ ers 150 mg 3-30 capsule by ity of capsule 00:00: mouth in [place] the Medical morning Branch and 1 capsule in the evening. meloxicam 2023-0 Yes Univers 15 mg 3-30 ity of tablet 00:00: [place] [facility] Branch HYDROcodone 2023-0 Yes 1{tbl} Take 1 Un travis -acetaminop 3-30 tablet by ity of hen 5-325 00:00: mouth 4 [place] mg tablet 00 ([facility]) Medical times [place] daily. pregabalin 2023-0 Yes 150mg Take 1 Univ ers 150 mg 3-30 capsule by ity of capsule 00:00: mouth in [place] the Medical morning Branch and 1 capsule in the evening. meloxicam 2023-0 Yes Univers 15 mg 3-30 ity of tablet 00:00: [place] [facility] Branch HYDROcodone 2023-0 Yes 1{tbl} Take 1 Un travis -acetaminop 3-30 tablet by ity of hen 5-325 00:00: mouth 4 [place] mg tablet 00 (four) Medical times Branch daily. pregabalin 2023-0 Yes 150mg Take 1 Univ ers 150 mg 3-30 capsule by ity of capsule 00:00: mouth in [place] the Medical morning Branch and 1 capsule in the evening. meloxicam 2023-0 Yes Univers 15 mg 3-30 ity of tablet 00:00: [place] 00 Medical Branch HYDROcodone 2023-0 Yes 1{tbl} [...] TABLET BY ity of tablet 00:00: MOUTH THREE Medical TIMES A Branch DAY NEEDED [...] 3-15 TABLET BY ity of tablet 00:00: [facility] EVERY DAY Medical AT BEDTIME Branch FOR [...] TABLET BY ity of tablet 00:00: MOUTH THREE Medical TIMES A Branch DAY NEEDED FOR 30 DAYS amitriptyli 2023-0 Yes TAKE 1 Univ ers ne 50 mg 3-15 TABLET BY ity of tablet 00:00: [facility] EVERY DAY Medical AT BEDTIME Branch FOR 30 DAYS cyclobenzap 2023-0 Yes TAKE 1 Univ ers rine 10 mg 3-15 TABLET BY ity of tablet 00:00: MOUTH THREE Medical TIMES A Branch DAY NEEDED FOR 30 DAYS amitriptyli 2023-0 Yes TAKE 1 Univ ers ne 50 mg 3-15 TABLET BY ity of tablet 00:00: [facility] EVERY DAY Medical AT BEDTIME Branch FOR 30 DAYS cyclobenzap 3-0 Yes TAKE 1 Univ ers rine 10 mg 3-15 TABLET BY ity of tablet 00:00: [facility] THREE Medical TIMES A Branch DAY NEEDED FOR 30 DAYS amitriptyli 2023-0 Yes TAKE 1 Univ ers ne 50 mg 3-15 TABLET BY ity of tablet 00:00: [facility] EVERY DAY Medical AT BEDTIME Branch FOR 30 DAYS cyclobenzap 3-0 Yes TAKE 1 Univ ers rine 10 mg 3-15 TABLET BY ity of tablet 00:00: [facility] THREE Medical TIMES A Branch DAY NEEDED FOR 30 DAYS amitriptyli 2023-0 Yes TAKE 1 Univ ers ne 50 mg 3-15 TABLET BY ity of tablet 00:00: [facility] EVERY DAY Medical AT BEDTIME Branch FOR 30 DAYS cyclobenzap 2023-0 Yes TAKE 1 Univ ers rine 10 mg 3-15 TABLET BY ity of tablet 00:00: [facility] THREE Medical TIMES A Branch DAY NEEDED FOR 30 DAYS amitriptyli 2023-0 Yes TAKE 1 Univ ers ne 50 mg 3-15 TABLET BY ity of tablet 00:00: [facility] 00 EVERY DAY Medical AT BEDTIME Branch FOR 30 DAYS cyclobenzap 2023-0 Yes TAKE 1 Univ ers rine 10 mg 3-15 TABLET BY ity of tablet 00:00: [facility] THREE Medical TIMES A Branch DAY NEEDED FOR 30 DAYS amitriptyli 2023-0 Yes TAKE 1 Univ ers ne 50 mg 3-15 TABLET BY ity of tablet 00:00: MOUTH 00 EVERY DAY Medical AT BEDTIME Branch [...] TABLET BY ity of tablet 00:00: MOUTH THREE Medical TIMES A Branch DAY NEEDED FOR 30 DAYS amitriptyli 3-0 Yes TAKE 1 Univ ers ne 50 mg 3-15 TABLET BY ity of tablet 00:00[facility] 3-0 Yes TAKE 1 Univ ers rine 10 mg 3-15 TABLET BY ity of tablet 00:00: MOUTH THREE Medical TIMES A Branch DAY NEEDED FOR 30 DAYS amitriptyli 3-0 Yes TAKE 1 Univ ers ne 50 mg 3-15 TABLET BY ity of tablet 00:00: [facility] EVERY DAY Medical AT BEDTIME Branch FOR [...] BY ity of tablet 00:00: MOUTH 00 EVERY DAY Medical AT BEDTIME Branch FOR 30 DAYS cyclobenzap 2023-0 Yes TAKE 1 Univ ers rine 10 mg 3-15 TABLET BY ity of tablet 00:00: MOUTH 00 THREE Medical TIMES A Branch DAY NEEDED FOR 30 DAYS amitriptyli 2023-0 Yes TAKE 1 Univ ers ne 50 mg 3-15 TABLET BY ity of tablet 00:00: [facility] EVERY DAY Medical AT BEDTIME Branch FOR 30 DAYS cyclobenzap 3-0 Yes TAKE 1 Univ ers rine 10 mg 3-15 TABLET BY ity of tablet 00:00: [facility] THREE Medical TIMES A Branch DAY NEEDED FOR 30 DAYS amitriptyli 2023-0 Yes TAKE 1 Univ ers ne 50 mg 3-15 TABLET BY ity of tablet 00:00: [facility] EVERY DAY Medical AT BEDTIME Branch FOR 30 DAYS cyclobenzap 2022-0 Yes TAKE 1 Univ ers rine 10 mg 3-15 TABLET BY ity of tablet 00:00: [facility] THREE Medical TIMES A Branch DAY NEEDED FOR 30 DAYS amitriptyli 3-0 Yes TAKE 1 Univ ers ne 50 mg 3-15 TABLET BY ity of tablet 00:00: [facility] EVERY DAY Medical AT BEDTIME [place] FOR 30 DAYS cyclobenzap 3-0 Yes TAKE 1 Univ ers rine 10 mg 3-15 TABLET BY ity of tablet 00:00: [facility] THREE Medical TIMES A Branch DAY NEEDED FOR 30 DAYS amitriptyli 3-0 Yes TAKE 1 Univ ers ne 50 mg 3-15 TABLET BY ity of tablet 00:00: [facility] EVERY DAY Medical AT BEDTIME [place] FOR 30 DAYS cyclobenzap 3-0 Yes TAKE 1 Univ ers rine 10 mg 3-15 TABLET BY ity of tablet 00:00: [facility] THREE Medical TIMES A Branch DAY NEEDED FOR 30 DAYS amitriptyli 2023-0 Yes TAKE 1 Univ ers ne 50 mg 3-15 TABLET BY ity of tablet 00:00: [facility] EVERY DAY Medical AT BEDTIME Branch FOR 30 DAYS cyclobenzap 3-0 Yes TAKE 1 Univ ers rine 10 mg 3-15 TABLET BY ity of tablet 00:00: [facility] THREE Medical TIMES A Branch DAY NEEDED FOR 30 DAYS amitriptyli 2023-0 Yes TAKE 1 Univ ers ne 50 mg 3-15 TABLET BY ity of tablet 00:00: [facility] EVERY DAY Medical AT BEDTIME Branch FOR 30 DAYS cyclobenzap 2023-0 Yes TAKE 1 Univ ers rine 10 mg 3-15 TABLET BY ity of tablet 00:00: MOUTH 00 THREE Medical TIMES A Branch DAY NEEDED FOR 30 DAYS amitriptyli 2023-0 Yes TAKE 1 Univ ers ne 50 mg 3-15 TABLET BY ity of tablet 00:00: [facility] EVERY DAY Medical AT BEDTIME Branch FOR 30 DAYS cyclobenzap 2023-0 Yes TAKE 1 Univ ers rine 10 mg 3-15 TABLET BY ity of tablet 00:00: [facility] THREE Medical TIMES A Branch DAY NEEDED FOR 30 DAYS amitriptyli 2023-0 Yes TAKE 1 Univ ers ne 50 mg 3-15 TABLET BY ity of tablet 00:00: [facility] EVERY DAY Medical AT BEDTIME Branch FOR 30 DAYS cyclobenzap 3-0 Yes TAKE 1 Univ ers rine 10 mg 3-15 TABLET BY ity of tablet 00:00: [facility] THREE Medical TIMES A Branch DAY NEEDED FOR 30 DAYS amitriptyli 2023-0 Yes TAKE 1 Univ ers ne 50 mg 3-15 TABLET BY ity of tablet 00:00: [facility] EVERY DAY Medical AT BEDTIME Branch FOR 30 DAYS cyclobenzap 3-0 Yes TAKE 1 Univ ers rine 10 mg 3-15 TABLET BY ity of tablet 00:00: [facility] THREE Medical TIMES A Branch DAY NEEDED FOR 30 DAYS amitriptyli 2023-0 Yes TAKE 1 Univ ers ne 50 mg 3-15 TABLET BY ity of tablet 00:00: [facility] cyclobenzap 3-0 Yes TAKE 1 Univ ers rine 10 mg 3-15 TABLET BY ity of tablet 00:00: [facility] THREE Medical TIMES A Branch DAY NEEDED FOR 30 DAYS amitriptyli 2023-0 Yes TAKE 1 Univ ers ne 50 mg 3-15 TABLET BY ity of tablet 00:00: [facility] EVERY DAY Medical AT BEDTIME Branch FOR 30 DAYS cyclobenzap 3-0 Yes TAKE 1 Univ ers rine 10 mg 3-15 TABLET BY ity of tablet 00:00: [facility] THREE Medical TIMES A Branch DAY NEEDED FOR 30 DAYS amitriptyli 2023-0 Yes TAKE 1 Univ ers ne 50 mg 3-15 TABLET BY ity of tablet 00:00: [facility] EVERY DAY Medical AT BEDTIME Branch FOR 30 DAYS cyclobenzap 2023-0 Yes TAKE 1 [facility] ers rine 10 mg 3-15 TABLET BY ity of tablet 00:00: MOUTH 00 THREE Medical TIMES A Branch DAY NEEDED FOR 30 DAYS amitriptyli 0 Yes TAKE 1 [facility] ers ne 50 mg 3-15 TABLET BY ity of tablet 00:00: MOUTH [place] 00 EVERY DAY Medical AT BEDTIME Branch FOR 30 DAYS NaCl 0.9% 0 2022- No 500mL at 999 [facility] ers (NS) bolus 11-03 mL/hr, 500 it y of infusion 15:45: 16:19 mL, IV [place] 500 mL 00 :00 [place], Medical ONCE, 1 Branch dose, On Wed11/03/22 at 0945, STAT LORazepam 2022-0 2022- No 1mg 1 mg, Slow U nivers (ATIVAN) 11-03 IV Push, ity of injection 1 15:00: 15:23 [place]CE[place] 1 [place] mg 00 :00 dose, On Medical [facility] Branch 11/03/22 at 0900, STAT diphenhydrA 0 2022- No 25mg 25 mg, Uni vers MINE 11-03 Slow IV ity of (BENADRYL) 15:00: 15:18 Push, [place] injection 00 :00 ONCE, 1 Medical 25 mg dose, On Branch Wed11/03/22 at 0900, STAT LORazepam 2022-0 Yes [id number] 1mg Take 1 U nivers (ATIVAN) 1 - tablet by ity of mg tablet 00:00: mouth [place] (two) Medical times Branch daily as needed for Anxiety or Agitation. hydrOXYzine 2022-0 Yes [id number] 25mg Take 1 Univers (VISTARIL) 2-28 capsule by ity of 25 mg 00:00: mouth 3 [place] capsule 00 (three) Medical times Branch daily as needed for Anxiety. LORazepam 3-0 Yes [id number] 1mg Take 1 U nivers (ATIVAN) 1 2-28 tablet by ity of mg tablet 00:00: mouth 2 [place] 00 (two) Medical times Branch daily as needed for Anxiety or Agitation. hydrOXYzine 3-0 Yes [id number] 25mg Take 1 Univers (VISTARIL) 2-28 capsule by ity of 25 mg 00:00: mouth 3 [place] capsule 00 (three) Medical times Branch daily as needed for Anxiety. LORazepam 2023-0 Yes [id number] 1mg Take 1 U nivers (ATIVAN) 1 2-28 tablet by ity of mg tablet 00:00: mouth 2 [place] 00 (two) Medical times Branch daily as needed for Anxiety or Agitation. hydrOXYzine 2023-0 Yes [id number] 25mg Take 1 Univers (VISTARIL) 2-28 capsule by ity of 25 mg 00:00: mouth 3 [place] capsule 00 (three) Medical times Branch daily as needed for Anxiety. LORazepam 2023-0 Yes [id number] 1mg Take 1 U nivers (ATIVAN) 1 2-28 tablet by ity of mg tablet 00:00: mouth 2 [place] 00 (two) Medical times Branch daily as needed for Anxiety or Agitation. hydrOXYzine 2023-0 Yes [id number] 25mg Take 1 Univers (VISTARIL) 2-28 capsule by ity of 25 mg 00:00: mouth 3 [place] capsule 00 (three) Medical times Branch daily as needed for Anxiety. LORazepam 2023-0 Yes [id number] 1mg Take 1 U nivers (ATIVAN) 1 2-28 tablet by ity of mg tablet 00:00: mouth 2 (two) Medical times Branch daily as needed for Anxiety or Agitation. hydrOXYzine 2023-0 Yes [id number] 25mg Take 1 Univers (VISTARIL) 2-28 capsule by ity of 25 mg 00:00: mouth 3 [place] capsule 00 (three) Medical times Branch daily as needed for Anxiety. LORazepam 2023-0 Yes [id number] 1mg Take 1 U nivers (ATIVAN) 1 2-28 tablet by ity of mg tablet 00:00: mouth 2 [place] 00 (two) Medical times Branch daily as needed for Anxiety or Agitation. hydrOXYzine 2023-0 Yes [id number] 25mg Take 1 Univers (VISTARIL) 2-28 capsule by ity of 25 mg 00:00: mouth 3 [place] capsule 00 (three) Medical times Branch daily as needed for Anxiety. LORazepam 2023-0 Yes [id number] 1mg Take 1 [facility] (ATIVAN) 1 2-28 tablet by ity of mg tablet 00:00: mouth 2 [place] 00 (two) Medical times Branch daily as needed for Anxiety or Agitation. hydrOXYzine 2023-0 Yes [id number] 25mg Take 1 [facility] (VISTARIL) 2-28 capsule by ity of 25 mg 00:00: mouth 3 [place] capsule 00 (three) Medical times Branch daily as needed for Anxiety. LORazepam 2023-0 Yes [id number] 1mg Take 1 [facility] (ATIVAN) 1 2-28 tablet by ity of mg tablet 00:00: mouth 2 [place] 00 (two) Medical times Branch daily as needed for Anxiety or Agitation. hydrOXYzine 2023-0 Yes [id number] 25mg Take 1 [facility] (VISTARIL) 2-28 capsule by ity of 25 mg 00:00: mouth 3 [place] capsule 00 (three) Medical times Branch daily as needed for Anxiety. LORazepam 2023-0 Yes [id number] 1mg Take 1 [facility] (ATIVAN) 1 2-28 tablet by ity of mg tablet 00:00: mouth 2 (two) Medical times Branch daily as needed for Anxiety or Agitation. hydrOXYzine 2023-0 Yes [id number] 25mg Take 1 [facility] (VISTARIL) 2-28 capsule by ity of 25 mg 00:00: mouth 3 [place] capsule 00 (three) Medical times Branch daily as needed for Anxiety. LORazepam 2023-0 Yes [id number] 1mg Take 1 [facility] (ATIVAN) 1 2-28 tablet by ity of mg tablet 00:00: mouth 2 (two) Medical times Branch daily as needed for Anxiety or Agitation. hydrOXYzine 2023-0 Yes [id number] 25mg Take 1 [facility] (VISTARIL) 2-28 capsule by ity of 25 mg 00:00: mouth 3 [place] capsule 00 (three) Medical times Branch daily as needed for Anxiety. LORazepam 2023-0 Yes [id number] 1mg Take 1 [facility] (ATIVAN) 1 2-28 tablet by ity of mg tablet 00:00: mouth 2 00 (two) Medical times Branch daily as needed for Anxiety or Agitation. hydrOXYzine 2023-0 Yes [id number] 25mg Take 1 [facility] (VISTARIL) 2-28 capsule by ity of 25 mg 00:00: mouth 3 [place] capsule 00 (three) Medical times Branch daily as needed for Anxiety. LORazepam 2023-0 Yes [id number] 1mg Take 1 [facility] (ATIVAN) 1 2-28 tablet by ity of mg tablet 00:00: mouth 2 [place] 00 (two) Medical times Branch daily as needed for Anxiety or Agitation. hydrOXYzine 2023-0 Yes [id number] 25mg Take 1 [facility] (VISTARIL) 2-28 capsule by ity of 25 mg 00:00: mouth 3 [place] capsule 00 (three) Medical times Branch daily as needed for Anxiety. LORazepam 2023-0 Yes [id number] 1mg Take 1 [facility] (ATIVAN) 1 2-28 tablet by ity of mg tablet 00:00: mouth 2 [place] 00 (two) Medical times Branch daily as needed for Anxiety or Agitation. hydrOXYzine 2023-0 Yes [id number] 25mg Take 1 [facility] (VISTARIL) 2-28 capsule by ity of 25 mg 00:00: mouth 3 [place] capsule 00 (three) Medical times Branch daily as needed for Anxiety. LORazepam 2023-0 Yes [id number] 1mg Take 1 [facility] (ATIVAN) 1 2-28 tablet by ity of mg tablet 00:00: mouth 2 [place] 00 (two) Medical times Branch daily as needed for Anxiety or Agitation. hydrOXYzine 2023-0 Yes [id number] 25mg Take 1 [facility] (VISTARIL) 2-28 capsule by ity of 25 mg 00:00: mouth 3 [place] capsule 00 (three) Medical times Branch daily as needed for Anxiety. LORazepam 2023-0 Yes [id number] 1mg Take 1 [facility] (ATIVAN) 1 2-28 tablet by ity of mg tablet 00:00: mouth 2 [place] 00 (two) Medical times Branch daily as needed for Anxiety or Agitation. hydrOXYzine 2023-0 Yes [id number] 25mg Take 1 [facility] (VISTARIL) 2-28 capsule by ity of 25 mg 00:00: mouth 3 [place] capsule 00 (three) Medical times Branch daily as needed for Anxiety. LORazepam 2023-0 Yes [id number] 1mg Take 1 [facility] (ATIVAN) 1 2-28 tablet by ity of mg tablet 00:00: mouth 2 [place] 00 (two) Medical times Branch daily as needed for Anxiety or Agitation. hydrOXYzine 2023-0 Yes [id number] 25mg Take 1 [facility] (VISTARIL) 2-28 capsule by ity of 25 mg 00:00: mouth 3 [place] capsule 00 (three) Medical times Branch daily as needed for Anxiety. LORazepam 2023-0 Yes [id number] 1mg Take 1 [facility] (ATIVAN) 1 2-28 tablet by ity of mg tablet 00:00: mouth 2 [place] 00 (two) Medical times Branch daily as needed for Anxiety or Agitation. hydrOXYzine 2023-0 Yes [id number] 25mg Take 1 [facility] (VISTARIL) 2-28 capsule by ity of 25 mg 00:00: mouth 3 [place] capsule 00 (three) Medical times Branch daily as needed for Anxiety. LORazepam 2023-0 Yes [id number] 1mg Take 1 [facility] (ATIVAN) 1 2-28 tablet by ity of mg tablet 00:00: mouth 2 [place] 00 (two) Medical times Branch daily as needed for Anxiety or Agitation. hydrOXYzine 2023-0 Yes [id number] 25mg Take 1 [facility] (VISTARIL) 2-28 capsule by ity of 25 mg 00:00: mouth 3 [place] capsule 00 (three) Medical times Branch daily as needed for Anxiety. LORazepam 2023-0 Yes [id number] 1mg Take 1 [facility] (ATIVAN) 1 2-28 tablet by ity of mg tablet 00:00: mouth 2 [place] 00 (two) Medical times Branch daily as needed for Anxiety or Agitation. hydrOXYzine 2023-0 Yes [id number] 25mg Take 1 [facility] (VISTARIL) 2-28 capsule by ity of 25 mg 00:00: mouth 3 [place] capsule 00 (three) Medical times Branch daily as needed for Anxiety. LORazepam 2023-0 Yes [id number] 1mg Take 1 [facility] (ATIVAN) 1 2-28 tablet by ity of mg tablet 00:00: mouth 2 [place] 00 (two) Medical times Branch daily as needed for Anxiety or Agitation. hydrOXYzine 2023-0 Yes [id number] 25mg Take 1 [facility] (VISTARIL) 2-28 capsule by ity of 25 mg 00:00: mouth 3 [place] capsule 00 (three) Medical times Branch daily as needed for Anxiety. LORazepam 2023-0 Yes [id number] 1mg Take 1 [facility] (ATIVAN) 1 2-28 tablet by ity of mg tablet 00:00: mouth 2 [place] 00 (two) Medical times Branch daily as needed for Anxiety or Agitation. hydrOXYzine 2023-0 Yes [id number] 25mg Take 1 [facility] (VISTARIL) 2-28 capsule by ity of 25 mg 00:00: mouth 3 [place] capsule 00 (three) Medical times Branch daily as needed for Anxiety. LORazepam 2023-0 Yes [id number] 1mg Take 1 [facility] (ATIVAN) 1 2-28 tablet by ity of mg tablet 00:00: mouth 2 [place] 00 (two) Medical times Branch daily as needed for Anxiety or Agitation. hydrOXYzine 2023-0 Yes [id number] 25mg Take 1 [facility] (VISTARIL) 2-28 capsule by ity of 25 mg 00:00: mouth 3 [place] capsule 00 (three) Medical times Branch daily as needed for Anxiety. LORazepam 2023-0 Yes [id number] 1mg Take 1 [facility] (ATIVAN) 1 2-28 tablet by ity of mg tablet 00:00: mouth 2 [place] 00 (two) Medical times Branch daily as needed for Anxiety or Agitation. hydrOXYzine 2023-0 Yes [id number] 25mg Take 1 [facility] (VISTARIL) 2-28 capsule by ity of 25 mg 00:00: mouth 3 [place] capsule 00 (three) Medical times Branch daily as needed for Anxiety. LORazepam 2023-0 Yes [id number] 1mg Take 1 [facility] (ATIVAN) 1 2-28 tablet by ity of mg tablet 00:00: mouth 2 00 (two) Medical times Branch daily as needed for Anxiety or Agitation. hydrOXYzine 2023-0 Yes [id number] 25mg Take 1 [facility] (VISTARIL) 2-28 capsule by ity of 25 mg 00:00: mouth 3 [place] capsule 00 (three) Medical times Branch daily as needed for Anxiety. LORazepam 2023-0 Yes [id number] 1mg Take 1 [facility] (ATIVAN) 1 2-28 tablet by ity of mg tablet 00:00: mouth 2 [place] 00 (two) Medical times Branch daily as needed for Anxiety or Agitation. hydrOXYzine 2023-0 Yes [id number] 25mg Take 1 [facility] (VISTARIL) 2-28 capsule by ity of 25 mg 00:00: mouth 3 [place] capsule 00 (three) Medical times Branch daily as needed for Anxiety. LORazepam 2023-0 Yes [id number] 1mg Take 1 [facility] (ATIVAN) 1 2-28 tablet by ity of mg tablet 00:00: mouth 2 [place] 00 (two) Medical times Branch daily as needed for Anxiety or Agitation. hydrOXYzine 2023-0 Yes [id number] 25mg Take 1 [facility] (VISTARIL) 2-28 capsule by ity of 25 mg 00:00: mouth 3 [place] capsule 00 (three) Medical times Branch daily as needed for Anxiety. LORazepam 2023-0 Yes [id number] 1mg Take 1 [facility] (ATIVAN) 1 2-28 tablet by ity of mg tablet 00:00: mouth 2 [place] 00 (two) Medical times Branch daily as needed for Anxiety or Agitation. hydrOXYzine 2023-0 Yes [id number] 25mg Take 1 [facility] (VISTARIL) 2-28 capsule by ity of 25 mg 00:00: mouth 3 [place] capsule 00 (three) Medical times Branch daily as needed for Anxiety. LORazepam 2023-0 Yes [id number] 1mg Take 1 [facility] (ATIVAN) 1 2-28 tablet by ity of mg tablet 00:00: mouth 2 00 (two) Medical times Branch daily as needed for Anxiety or Agitation. hydrOXYzine 2023-0 Yes [id number] 25mg Take 1 [facility] (VISTARIL) 2-28 capsule by ity of 25 mg 00:00: mouth 3 [place] capsule 00 (three) Medical times Branch daily as needed for Anxiety. LORazepam 2023-0 Yes [id number] 1mg Take 1 [facility] (ATIVAN) 1 2-28 tablet by ity of mg tablet 00:00: mouth 2 [place] 00 (two) Medical times Branch daily as needed for Anxiety or Agitation. hydrOXYzine 2023-0 Yes [id number] 25mg Take 1 [facility] (VISTARIL) 2-28 capsule by ity of 25 mg 00:00: mouth 3 [place] capsule 00 (three) Medical times Branch daily as needed for Anxiety. LORazepam 2023-0 Yes [id number] 1mg Take 1 [facility] (ATIVAN) 1 2-28 tablet by ity of mg tablet 00:00: mouth 2 [place] (two) Medical times Branch daily as needed for Anxiety or Agitation. hydrOXYzine 2023-0 Yes [id number] 25mg Take 1 [facility] (VISTARIL) 2-28 capsule by ity of 25 mg 00:00: mouth 3 [place] capsule 00 (three) Medical times Branch daily as needed for Anxiety. LORazepam 2022-0 Yes [id number] 1mg Take 1 [facility] (ATIVAN) 1 2-28 tablet by ity of mg tablet 00:00: mouth 2 [place] 00 (two) Medical times Branch daily as needed for Anxiety or Agitation. hydrOXYzine 2022-0 Yes [id number] 25mg Take 1 [facility] (VISTARIL) 2-28 capsule by ity of 25 mg 00:00: mouth 3 [place] capsule 00 (three) Medical times Branch daily as needed for Anxiety. LORazepam 2022-0 Yes [id number] 1mg Take 1 [facility] (ATIVAN) 1 2-28 tablet by ity of mg tablet 00:00: mouth 2 [place] (two) Medical times Branch daily as needed for Anxiety or Agitation. hydrOXYzine 2022-0 Yes [id number] 25mg Take 1 [facility] (VISTARIL) 2-28 capsule by ity of 25 mg 00:00: mouth 3 [place] capsule 00 (three) Medical times Branch daily as needed for Anxiety. iopamidol 2022- No [id number] 75mL 75 mL, [facility] (ISOVUE 10-13 Intravenou ity o f 370-500 mL) 09:30: 21:29 s, ONCE, 1 [place] injection 00 :00 dose, On Medica l 75 mL Wed10/13/22 Branch at 0330, Routine dicyclomine 2022- No 20mg 20 mg, Uni vers (BENTYL) 10-13 Intramuscu ity of injection 09:15: 21:14 [place], ONCE, [place] 20 mg 00 :00 1 dose, On Medical e 10/13/22 Branch at 0315, Routine famotidine 2022-0 Yes TAKE 1 [facility] rs 20 mg 1-25 TABLET BY ity of tablet 00:00: MOUTH IN 00 THE Medical MORNING Branch AND IN THE EVENING FOR 5 DAYS famotidine 2022-0 Yes TAKE 1 [facility] 20 mg 1-25 TABLET BY ity of tablet 00:00: MOUTH IN [place] 00 THE Medical MORNING Branch AND IN THE EVENING FOR 5 DAYS famotidine 0 Yes TAKE 1 [facility] 20 mg 1-25 TABLET BY ity of tablet 00:00: MOUTH IN [place] 00 THE Medical MORNING Branch AND IN THE EVENING FOR 5 DAYS famotidine 0 Yes TAKE 1 [facility] rs 20 mg 1-25 TABLET BY ity of tablet 00:00: MOUTH IN [place] 00 THE Medical MORNING Branch AND IN THE EVENING FOR 5 DAYS famotidine 0 Yes TAKE 1 [facility] rs 20 mg 1-25 TABLET BY ity of tablet 00:00: MOUTH IN [place] 00 THE Medical MORNING Branch AND IN THE EVENING FOR 5 DAYS famotidine 0 Yes TAKE 1 [facility] rs 20 mg 1-25 TABLET BY ity of tablet 00:00: MOUTH IN [place] 00 THE Medical MORNING Branch AND IN THE EVENING FOR 5 DAYS famotidine Yes TAKE 1 [facility] 20 mg 1-25 TABLET BY ity of tablet 00:00: MOUTH IN [place] 00 THE Medical MORNING Branch AND IN THE EVENING FOR 5 DAYS famotidine 0 Yes TAKE 1 [facility] 20 mg 1-25 TABLET BY ity of tablet 00:00: MOUTH IN [place] 00 THE Medical MORNING Branch AND IN THE EVENING FOR 5 DAYS famotidine 0 Yes TAKE 1 [facility] 20 mg 1-25 TABLET BY ity of tablet 00:00: MOUTH IN [place] 00 THE Medical MORNING Branch AND IN THE EVENING FOR 5 DAYS famotidine 0 Yes TAKE 1 [facility] rs 20 mg 1-25 TABLET BY ity of tablet 00:00: MOUTH IN [place] 00 THE Medical MORNING Branch AND IN THE EVENING FOR 5 DAYS famotidine 0 Yes TAKE 1 [facility] rs 20 mg 1-25 TABLET BY ity of tablet 00:00: MOUTH IN [place] 00 THE Medical MORNING Branch AND IN THE EVENING FOR 5 DAYS famotidine 0 Yes TAKE 1 [facility] 20 mg 1-25 TABLET BY ity of tablet 00:00: MOUTH IN [place] 00 THE Medical MORNING Branch AND IN THE EVENING FOR 5 DAYS famotidine 0 2023- No TAKE 1 [facility] ers 20 mg 1-25 05-12 TABLET BY ity of tablet 00:00: 00:00 MOUTH IN [place] 00 :00 THE Medical MORNING Branch AND IN THE EVENING FOR 5 DAYS famotidine No 20mg 20 mg, [facility] ers (PEPCID [...] at 1830, 1 mL predniSONE 2022- No [id number] 40mg Take 2 [facility] 20 mg 09-10 tablets by ity of tablet 00:00: 05:59 mouth in [place] 00 :00 the Medical morning Branch for 5 days. famotidine 2022- No [id number] 20mg Take 1 [facility] (PEPCID) 20 09-09 tablet by it y of mg tablet 00:00: 05:59 mouth in [facility] as 00 :00 the Medical morning Branch and 1 tablet in the evening. Do all this for 5 days. HYDROcodone 2021-09- No 1{tbl} 1 tablet, [facility] -acetaminop 10-20 Oral, ity of hen (NORCO) 00:00: 22:59 ONCE, 1 [place] 10-325 mg 00 :00 dose, On Medica l tablet 1 e Branch tablet 08/18/22 at 1800, Routine oseltamivir 2021-09- No [id number] 75mg Take 1 [facility] (TAMIFLU) 10-19-19 capsule by ity of 75 mg 00:00: 05:59 mouth in [place] capsule 00 :00 the Medical morning Branch and 1 capsule in the evening. Do all this for 5 days. oxyCODONE 5 0 Yes 5mg Take 1 [facility] ers mg 9-28 tablet by ity of immediate 00:00: mouth. release Medical tablet Branch oxyCODONE 5 0 Yes 5mg Take 1 [facility] ers mg [...] of tablet 00:00: tablet Medical Branch naproxen 2022-0 Yes naproxen Unive rs 500 mg 9-16 500 mg ity of tablet 00:00: tablet [place] [facility] naproxen 2-0 Yes naproxen Unive rs 500 mg 9-16 500 mg ity of tablet 00:00: tablet [place] [facility] naproxen 2-0 Yes naproxen Unive rs 500 mg 9-16 500 mg ity of tablet 00:00: tablet [place] [facility] naproxen 2-0 Yes naproxen Unive rs 500 mg 9-16 500 mg ity of tablet 00:00: tablet [place] [facility] naproxen 2-0 Yes naproxen Unive rs 500 mg 9-16 500 mg ity of tablet 00:00: tablet [place] [facility] naproxen 2021-0 Yes naproxen Unive rs 500 mg 9-16 500 mg ity of tablet 00:00: tablet [place] [facility] naproxen 2-0 Yes naproxen Unive rs 500 mg 9-16 500 mg ity of tablet 00:00: tablet [place] [facility] naproxen 2-0 Yes naproxen Unive rs 500 mg 9-16 500 mg ity of tablet 00:00: tablet [place] [facility] naproxen 2-0 Yes naproxen Unive rs 500 mg 9-16 500 mg ity of tablet 00:00: tablet [place] [facility] naproxen 2-0 Yes naproxen Unive rs 500 mg 9-16 500 mg ity of tablet 00:00: tablet [place] [facility] naproxen 2-0 Yes naproxen Unive rs 500 mg 9-16 500 mg ity of tablet 00:00: tablet [place] [facility] naproxen 2-0 3- No naproxen [facility] ers 500 mg 9-16 05-12 500 mg ity of tablet 00:00: 00:00 tablet [place] 00 :00 Medical Branch prazosin 2 2021-0 Yes 2mg Take 1 Unive rs mg capsule 9-15 capsule by ity of 00:00: mouth. [place] [address] Medical Branch prazosin 2 2021-0 Yes 2mg Take 1 [facility] rs mg capsule 9-15 capsule by ity of 00:00: mouth. [place] [address] Medical Branch prazosin 2 2021-0 Yes 2mg [...] 00:00: mouth. Medical Branch prazosin 2 2021-0 2023- No 2mg Take 1 [facility] ers mg capsule 9-15 05-12 capsule by it y of 00:00: 00:00 mouth. [place] 00 :00 Medical Branch naloxone 4 2021-0 Yes CALL [...] topical [place] patch 00 patch Medical Branch lidocaine 5 2021-0 Yes lidocaine [facility] % (700 8-25 5 % ity of mg/patch) 00:00: topical [place] patch 00 patch Medical Branch lidocaine 5 2021-0 Yes lidocaine [facility] % (700 8-25 5 % ity of mg/patch) 00:00: topical [place] patch 00 patch Medical Branch naloxone 4 2021-0 3- No CALL 911. U nivers mg/actuatio 8-25 05-12 SPR ity of n nasal 00:00: 00:00 CONTENTS [place] spray 00 :00 OF ONE Medical SPRAYER Branch (0.1ML) INTO ONE NOSTRIL. REPEAT IN 2-3 MIN IF SYMPTOMS OF OPIOID EMERGENCY PERSIST, ALTERNATE NOSTRILS naloxegoL 0 Yes [facility] (MOVANTIK) 8-23 ity of 12.5 mg Tab 00:00: Medical Branch naloxegoL 2021-0 Yes [facility] (MOVANTIK) 8-23 ity of 12.5 mg Tab 00:00: 00 Medical Branch naloxegoL 2021-0 Yes [facility] (MOVANTIK) 8-23 ity of 12.5 mg Tab 00:00: Medical Branch naloxegoL 2021-0 Yes [facility] (MOVANTIK) 8-23 ity of 12.5 mg Tab 00:00: Medical Branch naloxegoL 2021-0 Yes [facility] (MOVANTIK) 8-23 ity of 12.5 mg Tab 00:00: [place] 00 Medical Branch naloxegoL Yes [facility] (MOVANTIK) 8-23 ity of 12.5 mg Tab 00:00: Medical Branch naloxegoL Yes [facility] (MOVANTIK) 8-23 ity of 12.5 mg Tab 00:00: Medical Branch naloxegoL Yes [facility] (MOVANTIK) 8-23 ity of 12.5 mg Tab 00:00: Medical Branch naloxegoL Yes [facility] (MOVANTIK) 8-23 ity of 12.5 mg Tab 00:00: Medical Branch naloxegoL Yes [facility] (MOVANTIK) 8-23 ity of 12.5 mg Tab 00:00: Medical Branch naloxegoL Yes [facility] (MOVANTIK) 8-23 ity of 12.5 mg Tab 00:00: Medical Branch naloxegoL Yes [facility] (MOVANTIK) 8-23 ity of 12.5 mg Tab 00:00: Medical Branch naloxegoL Yes [facility] (MOVANTIK) 8-23 ity of 12.5 mg Tab 00:00: Medical Branch naloxegoL Yes [facility] (MOVANTIK) 8-23 ity of 12.5 mg Tab 00:00: Medical Branch venlafaxine Yes Univer s XR 37.5 mg 8-17 ity of 24 hr 00:00: [place] capsule Medical Branch venlafaxine Yes Univer s XR 37.5 mg 8-17 ity of 24 hr 00:00: [place] capsule Medical Branch venlafaxine Yes Univer s XR 37.5 mg 8-17 ity of 24 hr 00:00: [place] capsule Medical Branch venlafaxine Yes Univer s XR 37.5 mg 8-17 ity of 24 hr 00:00: [place] capsule Medical Branch venlafaxine Yes Univer s XR 37.5 mg 8-17 ity of 24 hr 00:00: [place] capsule Medical Branch venlafaxine Yes Univer s XR 37.5 mg 8-17 [...] [place] capsule 00 Medical Branch venlafaxine 2021-0 3- No Unive rs XR 37.5 mg 8-17 05-12 ity of 24 hr 00:00: 00:00 [place] capsule 00 :00 Medical Branch HYDROcodone 2021-0 Yes TAKE 1 Univ ers -acetaminop 7-06 TABLET BY ity of hen 10-325 00:00: MOUTH [place] mg tablet 00 EVERY 6 Medical HOURS FOR Branch UP TO 7 DAYS NEEDED FOR PAIN diazePAM 10 2021-0 Yes Univer s mg tablet 7-06 ity of 00:00: Medical Branch HYDROcodone 2021-0 Yes TAKE 1 [...] of 00:00: [place] 00 Medical Branch HYDROcodone 1{tbl} Q6H Take 1 [facility] -acetaminop 5-17 05-[address] [facility] (Chtiogen) 13:50: 00:00 mouth [facility] 10-325 mg 15 :00 every 6 l per tablet (six) hours as needed .acute pain. prn HYDROcodone 1{tbl} Q6H Take 1 [facility] -acetaminop 5-17 05-[address] [facility] (Chtiogen) 13:50: 00:00 mouth [facility] 10-325 mg 15 :00 every 6 l per tablet (six) hours as needed .acute pain. prn HYDROcodone 1{tbl} Q6H Take 1 [facility] -acetaminop 5-17 05-[address] [facility] (Chtiogen) 13:50: 00:00 mouth [facility] 10-325 mg 15 :00 every 6 l per tablet (six) hours as needed .acute pain. prn HYDROcodone 1{tbl} Q6H Take 1 [facility] -acetaminop 5-17 05-[address] [facility] (Chtiogen) 13:50: 00:00 mouth [facility] 10-325 mg 15 :00 every 6 l per tablet (six) hours as needed .acute pain. prn HYDROcodone 1{tbl} Q6H Take 1 [facility] -acetaminop 5-17 05-[address] [facility] (Chtiogen) 13:50: 00:00 mouth [facility] 10-325 mg [...] hours as needed. cyclobenzap 2022-0 Yes 10mg [id number] Take 10 mg Methodi rine 5-17 [id number] [facility] [address] (FLEXERIL) 13:09: 3D [...] hours as needed. cyclobenzap 2022-0 Yes 10mg Q.[id number] Take 10 mg Methodi rine 5-17 [id number] [facility] [address] (FLEXERIL) 13:09: 3D [...] hours as needed. cyclobenzap 2022-0 Yes 10mg Q.[id number] Take 10 mg Methodi rine 5-17 [id number] [facility] [address] (FLEXERIL) 13:09: 3D (three) [facility] 10 mg 39 times a l tablet [...] hours as needed. cyclobenzap 2022-0 Yes 10mg Q.[id number] Take 10 mg Methodi rine 5-[id number] [facility] [address] (FLEXERIL) 13:09: 3D [...] hours as needed. cyclobenzap 2022-0 Yes 10mg Q.[id number] Take 10 mg Methodi rine 5-17 [id number] [facility] [address] (FLEXERIL) 13:09: 3D (three) [facility] 10 mg 39 times a l tablet day as needed for muscle spasms. cyclobenzap 2022-0 Yes 10mg Q.[id number] Take 10 mg Methodi rine 5-17 [id number] [facility] [address] (FLEXERIL) 13:09: 3D (three) [facility] 10 mg 39 times a l tablet day as needed for muscle spasms. diazePAM Yes 10mg Q12H Take 10 mg [facility] (VALIUM) 10 5-[address] MG tablet 13:09: every 12 [facility] 39 (twelve) l hours as needed for anxiety. meloxicam Yes 7.5mg Q12H Take 7.5 [facility] (MOBIC) 7.5 5-[address] mg tablet 13:09: mouth [facility] 39 every 12 l (twelve) hours as needed. HYDROcodone 2021- No [id number] 1{tbl} Q6H Take 1 [facility] -acetaminop 5-17 06-[address] [facility] (Chtiogen) 00:00: 04:59 mouth [facility] 10-325 mg 00 :00 every 6 l per tablet (six) hours as needed for severe pain for up to 30 days .chronic pain. prn Max Daily Amount: 4 tablets HYDROcodone 2021- No [id number] 1{tbl} Q6H Take 1 [facility] -acetaminop 5-17 06-[address] [facility] (Chtiogen) 00:00: 04:59 mouth [facility] 10-325 mg 00 :00 every 6 l per tablet (six) hours as needed for severe pain for up to 30 days .chronic pain. prn Max Daily Amount: 4 tablets [place]DROcodone 2021-2021- [place] [id number] 1{tbl} Q6H Take 1 [facility] -acetaminop 5-17 06-[address] [facility] (Chtiogen) 00:00: 04:59 mouth [facility] 10-325 mg 00 :00 every 6 l per tablet (six) hours as needed for severe pain for up to 30 days .chronic pain. prn Max Daily Amount: 4 tablets HYDROcodone 2021-0 2021- No [id number] 1{tbl} Q6H Take 1 [facility] -acetaminop 5-17 06-[address] [facility] (Chtiogen) 00:00: 04:59 mouth [facility] 10-325 mg 00 :00 every 6 l per tablet (six) hours as needed for severe pain for up to 30 days .chronic pain. prn Max Daily Amount: 4 tablets HYDROcodone 2021-0 2021- No [id number] 1{tbl} Q6H Take 1 [facility] -acetaminop 5-17 06-[address] [facility] (NORCO) 00:00: 04:59 mouth [facility] 10-325 mg 00 :00 every 6 l per tablet (six) hours as needed for severe pain for up to 30 days .chronic pain. prn Max Daily Amount: 4 tablets HYDROcodone 2021-0 2021- No [id number] 1{tbl} Q6H Take 1 [facility] -acetaminop 5-17 [...] hours as needed. diazePAM 2021-2021- No 10mg Q6H Take 10 mg [facility] (VALIUM) 10 10-[address] MG tablet 16:12: 00:00 every 6 [facility] 01 :00 (six) l hours as needed. diazePAM 2021-2021- No 10mg Q6H Take 10 mg Me [...] up to 60 days. diazePAM 2020-09- No [id number] 10mg Q12H Take 1 [facility] (VALIUM) 10 10-15 tablet (10 s t MG tablet 00:00: 05:59 mg total) [facility] 00 :00 by mouth l every 12 (twelve) hours as needed for anxiety for up to 30 days. diazePAM 2020-09- No [id number] 10mg Q12H Take 1 [facility] (VALIUM) 10 10-15 tablet (10 s t MG tablet 00:00: 05:59 mg total) [facility] 00 :00 by mouth l every 12 (twelve) hours as needed for anxiety for up to 30 days. diazePAM 2020-09- No [id number] 10mg Q12H Take 1 [facility] (VALIUM) 10 10-15 tablet (10 s t MG tablet 00:00: 05:59 mg total) [facility] 00 :00 by mouth l every 12 (twelve) hours as needed for anxiety for up to 30 days. diazePAM 2020-09- No [id number] 10mg Q12H Take 1 [facility] (VALIUM) [...] as needed for anxiety. diazePAM 2020-09- No [id number] 10mg Q12H Take 1 [facility] (VALIUM) 10 09-09-05 tablet (10 s t MG tablet 00:00: 05:59 mg total) [facility] 00 :00 by mouth l every 12 (twelve) hours as needed for anxiety for up to 30 days. diazePAM 2020-09- No [id number] 10mg Q12H Take 1 [facility] (VALIUM) 10 09-09- tablet (10 s t MG tablet 00:00: 05:59 mg total) [facility] 00 :00 by mouth l every 12 (twelve) hours as needed for anxiety for up to 30 days. diazePAM 2020-09- No [id number] 10mg Q12H Take 1 [facility] (VALIUM) 10 09-09 12-05 tablet (10 s t MG tablet 00:00: 05:59 mg total) [facility] 00 :00 by mouth l every 12 (twelve) hours as needed for anxiety for up to 30 days. diazePAM 2020-09- No [id number] 10mg Q12H Take 1 [facility] (VALIUM) 10 09-09 12-05 tablet (10 s t MG tablet 00:00: 05:59 mg total) [facility] 00 :00 by mouth l every 12 (twelve) hours as needed for anxiety for up to 30 days. azithromyci 2020-09- No [id number] 250mg QD Take 1 Methodi n -[address] (Zithromax 00:00: 00:00 (250 mg [facility]) 250 00 :00 total) by l MG tablet mouth daily. Take 2 tablets the first day, then 1 tablet daily for 4 days. pantoprazol Yes [id number] 40mg Take 1 [facility] e 4-18 tablet by ity of (PROTONIX) 00:00: mouth [place] 40 mg EC 00 daily. Medical tablet Branch dicyclomine Yes [id number] 20mg Take 1 [facility] 20 mg 4-18 tablet by ity of tablet 00:00: mouth [place] 00 every 6 Medical (six) Branch hours as needed for Abdominal pain. ondansetron 0 Yes [id number] 4mg Take 1 [facility] (ZOFRAN) 4 4-18 tablet by ity of mg tablet 00:00: mouth [place] 00 every 8 Medical (eight) Branch hours as needed for Nausea and Vomiting (N/V). pantoprazol Yes [id number] 40mg Take 1 [facility] e 4-18 tablet by ity of (PROTONIX) 00:00: mouth [place] 40 mg EC 00 daily. [facility] tablet [facility] dicyclomine Yes [id number] 20mg Take 1 [facility]-18 tablet by [facility] tablet 00:00: mouth [place] 00 every 6 Medical (six) Branch hours as needed for Abdominal pain. ondansetron 2020-0 Yes [id number] 4mg Take 1 [facility] (ZOFR[facility]) 4 4-18 tablet by [facility] mg tablet 00:00: mouth [place] 00 every 8 Medical (eight) Branch hours as needed for Nausea and Vomiting (N/V). pantoprazol 2020-0 Yes [id number] 40mg Take 1 [facility] e 4-18 tablet by [facility] (PROTONIX) 00:00: mouth [place] 40 mg EC 00 daily. [facility] tablet [facility] dicyclomine 2020-0 Yes [id number] 20mg Take 1 [facility] 20 mg 4-18 tablet by [facility] tablet 00:00: mouth [place] 00 every 6 Medical (six) Branch hours as needed for Abdominal pain. ondansetron 2020-0 Yes [id number] 4mg Take 1 [facility] (ZOFR[facility]) 4 4-18 tablet by [facility] mg tablet 00:00: mouth [place] 00 every 8 Medical (eight) Branch hours as needed for Nausea and Vomiting (N/V). pantoprazol 2020-0 Yes [id number] 40mg Take 1 [facility] e 4-18 tablet by [facility] (PROTONIX) 00:00: mouth [place] 40 mg EC 00 daily. [facility] tablet Branch dicyclomine 2020-0 Yes [id number] 20mg Take 1 [facility] 20 mg 4-18 tablet by [facility] tablet 00:00: mouth [place] 00 every 6 Medical (six) Branch hours as needed for Abdominal pain. ondansetron 2020-0 Yes [id number] 4mg Take 1 [facility] (ZOFR[facility]) 4 4-18 tablet by [facility] mg tablet 00:00: mouth [place] 00 every 8 Medical (eight) Branch hours as needed for Nausea and Vomiting (N/V). pantoprazol 2020-0 Yes [id number] 40mg Take 1 [facility] e 4-18 tablet by [facility] (PROTONIX) 00:00: mouth [place] 40 mg EC 00 daily. [facility] tablet Branch dicyclomine 2020-0 Yes [id number] 20mg Take 1 [facility] 20 mg 4-18 tablet by [facility] tablet 00:00: mouth [place] 00 every 6 Medical (six) Branch hours as needed for Abdominal pain. ondansetron 2020-0 Yes [id number] 4mg Take 1 [facility] (ZOFR[facility]) 4 4-18 tablet by [facility] mg tablet 00:00: mouth [place] 00 every 8 Medical (eight) Branch hours as needed for Nausea and Vomiting (N/V). pantoprazol 2020-0 Yes [id number] 40mg Take 1 [facility] e 4-18 tablet by [facility] (PROTONIX) 00:00: mouth [place] 40 mg EC 00 daily. [facility] tablet Branch dicyclomine 2020-0 Yes [id number] 20mg Take 1 [facility] 20 mg 4-18 tablet by [facility] tablet 00:00: mouth [place] 00 every 6 Medical (six) Branch hours as needed for Abdominal pain. ondansetron 2020-0 Yes [id number] 4mg Take 1 [facility] (ZOFR[facility]) 4 4-18 tablet by [facility] mg tablet 00:00: mouth [place] 00 every 8 Medical (eight) Branch hours as needed for Nausea and Vomiting (N/V). pantoprazol 2020-0 Yes [id number] 40mg Take 1 [facility] e 4-18 tablet by [facility] (PROTONIX) 00:00: mouth [place] 40 mg EC 00 daily. [facility] tablet [facility] dicyclomine 0 Yes [id number] 20mg Take 1 [facility] 20 mg 4-18 tablet by [facility] tablet 00:00: mouth [place] 00 every 6 Medical (six) Branch hours as needed for Abdominal pain. ondansetron 0 Yes [id number] 4mg Take 1 [facility] (ZOFR[facility]) 4 4-18 tablet by [facility] mg tablet 00:00: mouth [place] 00 every 8 Medical (eight) Branch hours as needed for Nausea and Vomiting (N/V). pantoprazol 2020-0 Yes [id number] 40mg Take 1 [facility] e 4-18 tablet by [facility] (PROTONIX) 00:00: mouth [place] 40 mg EC 00 daily. [facility] tablet [facility] dicyclomine 2020-0 Yes [id number] 20mg Take 1 [facility] 20 mg 4-18 tablet by [facility] tablet 00:00: mouth [place] 00 every 6 Medical (six) Branch hours as needed for Abdominal pain. ondansetron 2020-0 Yes [id number] 4mg Take 1 [facility] (ZOFR[facility]) 4 4-18 tablet by [facility] mg tablet 00:00: mouth [place] 00 every 8 Medical (eight) Branch hours as needed for Nausea and Vomiting (N/V). pantoprazol 2020-0 Yes [id number] 40mg Take 1 [facility] e 4-18 tablet by [facility] (PROTONIX) 00:00: mouth [place] 40 mg EC 00 daily. [facility] tablet Branch dicyclomine 2020-0 Yes [id number] 20mg Take 1 [facility] 20 mg 4-18 tablet by [facility] tablet 00:00: mouth [place] 00 every 6 Medical (six) Branch hours as needed for Abdominal pain. ondansetron 2020-0 Yes [id number] 4mg Take 1 [facility] (ZOFR[facility]) 4 4-18 tablet by [facility] mg tablet 00:00: mouth [place] 00 every 8 Medical (eight) Branch hours as needed for Nausea and Vomiting (N/V). pantoprazol 2020-0 Yes [id number] 40mg Take 1 [facility] e 4-18 tablet by [facility] (PROTONIX) 00:00: mouth [place] 40 mg EC 00 daily. [facility] tablet Branch dicyclomine 2020-0 Yes [id number] 20mg Take 1 [facility] 20 mg 4-18 tablet by [facility] tablet 00:00: mouth [place] 00 every 6 Medical (six) Branch hours as needed for Abdominal pain. ondansetron 2020-0 Yes [id number] 4mg Take 1 [facility] (ZOFRAN) 4 4-18 tablet by [facility] mg tablet 00:00: mouth [place] 00 every 8 Medical (eight) Branch hours as needed for Nausea and Vomiting (N/V). pantoprazol 2020-0 Yes [id number] 40mg Take 1 [facility] e 4-18 tablet by [facility] (PROTONIX) 00:00: mouth [place] 40 mg EC 00 daily. [facility] tablet Branch dicyclomine 2020-0 Yes [id number] 20mg Take 1 [facility] 20 mg 4-18 tablet by [facility] tablet 00:00: mouth [place] 00 every 6 Medical (six) Branch hours as needed for Abdominal pain. ondansetron 2020-0 Yes [id number] 4mg Take 1 [facility] (ZOFR[facility]) 4 4-18 tablet by [facility] mg tablet 00:00: mouth [place] 00 every 8 Medical (eight) Branch hours as needed for Nausea and Vomiting (N/V). pantoprazol 2020-0 Yes [id number] 40mg Take 1 [facility] e 4-18 tablet by [facility] (PROTONIX) 00:00: mouth [place] 40 mg EC 00 daily. [facility] tablet Branch dicyclomine 2020-0 Yes [id number] 20mg Take 1 [facility] 20 mg 4-18 tablet by [facility] tablet 00:00: mouth [place] 00 every 6 Medical (six) Branch hours as needed for Abdominal pain. ondansetron 2020-0 Yes [id number] 4mg Take 1 [facility] (ZOFR[facility]) 4 4-18 tablet by [facility] mg tablet 00:00: mouth [place] 00 every 8 Medical (eight) Branch hours as needed for Nausea and Vomiting (N/V). pantoprazol 2020-0 Yes [id number] 40mg Take 1 [facility] e 4-18 tablet by [facility] (PROTONIX) 00:00: mouth [place] 40 mg EC 00 daily. [facility] tablet Branch dicyclomine 2020-0 Yes [id number] 20mg Take 1 [facility] 20 mg 4-18 tablet by [facility] tablet 00:00: mouth [place] 00 every 6 Medical (six) Branch hours as needed for Abdominal pain. ondansetron 2020-0 Yes [id number] 4mg Take 1 [facility] (ZOFRAN) 4 4-18 tablet by [facility] mg tablet 00:00: mouth [place] 00 every 8 Medical (eight) Branch hours as needed for Nausea and Vomiting (N/V). pantoprazol 2020-0 Yes [id number] 40mg Take 1 [facility] e 4-18 tablet by [facility] (PROTONIX) 00:00: mouth [place] 40 mg EC 00 daily. [facility] tablet Branch dicyclomine 2020-0 Yes [id number] 20mg Take 1 [facility] 20 mg 4-18 tablet by [facility] tablet 00:00: mouth [place] 00 every 6 Medical (six) Branch hours as needed for Abdominal pain. ondansetron 2020-0 Yes [id number] 4mg Take 1 [facility] (ZOFR[facility]) 4 4-18 tablet by [facility] mg tablet 00:00: mouth [place] 00 every 8 Medical (eight) Branch hours as needed for Nausea and Vomiting (N/V). pantoprazol 2020-0 Yes [id number] 40mg Take 1 [facility] e 4-18 tablet by [facility] (PROTONIX) 00:00: mouth [place] 40 mg EC 00 daily. [facility] tablet Branch dicyclomine 2020-0 Yes [id number] 20mg Take 1 [facility] 20 mg 4-18 tablet by [facility] tablet 00:00: mouth [place] 00 every 6 Medical (six) Branch hours as needed for Abdominal pain. ondansetron 2020-0 Yes [id number] 4mg Take 1 [facility] (ZOFRAN) 4 4-18 tablet by [facility] mg tablet 00:00: mouth [place] 00 every 8 Medical (eight) Branch hours as needed for Nausea and Vomiting (N/V). pantoprazol 2020-0 Yes [id number] 40mg Take 1 [facility] e 4-18 tablet by [facility] of (PROTONIX) 00:00: mouth [place] 40 mg EC 00 daily. [facility] tablet Branch dicyclomine 2020-0 Yes [id number] 20mg Take 1 [facility] 20 mg 4-18 tablet by [facility] tablet 00:00: mouth [place] 00 every 6 Medical (six) Branch hours as needed for Abdominal pain. ondansetron 2020-0 Yes [id number] 4mg Take 1 [facility] (ZOFRAN) 4 4-18 tablet by [facility] mg tablet 00:00: mouth [place] 00 every 8 Medical (eight) Branch hours as needed for Nausea and Vomiting (N/V). pantoprazol 2020-0 Yes [id number] 40mg Take 1 [facility] e 4-18 tablet by [facility] (PROTONIX) 00:00: mouth [place] 40 mg EC 00 daily. [facility] tablet Branch dicyclomine 2020-0 Yes [id number] 20mg Take 1 [facility] 20 mg 4-18 tablet by [facility] tablet 00:00: mouth [place] 00 every 6 Medical (six) Branch hours as needed for Abdominal pain. ondansetron 2020-0 Yes [id number] 4mg Take 1 [facility] (ZOFR[facility]) 4 4-18 tablet by [facility] mg tablet 00:00: mouth [place] 00 every 8 Medical (eight) Branch hours as needed for Nausea and Vomiting (N/V). pantoprazol 2020-0 Yes [id number] 40mg Take 1 [facility] e 4-18 tablet by [facility] (PROTONIX) 00:00: mouth [place] 40 mg EC 00 daily. [facility] tablet Branch dicyclomine 2020-0 Yes [id number] 20mg Take 1 [facility] 20 mg 4-18 tablet by [facility] tablet 00:00: mouth [place] 00 every 6 Medical (six) Branch hours as needed for Abdominal pain. ondansetron 2021-0 Yes [id number] 4mg Take 1 [facility] (ZOFR[facility]) 4 4-18 tablet by [facility] mg tablet 00:00: mouth [place] 00 every 8 Medical (eight) Branch hours as needed for Nausea and Vomiting (N/V). pantoprazol 2020-0 Yes [id number] 40mg Take 1 [facility] e 4-18 tablet by [facility] (PROTONIX) 00:00: mouth [place] 40 mg EC 00 daily. [facility] tablet Branch dicyclomine 2020-0 Yes [id number] 20mg Take 1 [facility] 20 mg 4-18 tablet by [facility] tablet 00:00: mouth [place] 00 every 6 Medical (six) Branch hours as needed for Abdominal pain. ondansetron 2020-0 Yes [id number] 4mg Take 1 [facility] (ZOFRAN) 4 4-18 tablet by [facility] mg tablet 00:00: mouth [place] 00 every 8 Medical (eight) Branch hours as needed for Nausea and Vomiting (N/V). pantoprazol 2020-0 Yes [id number] 40mg Take 1 [facility] e 4-18 tablet by [facility] (PROTONIX) 00:00: mouth [place] 40 mg EC 00 daily. Medical tablet Branch dicyclomine 2020-0 Yes [id number] 20mg Take 1 [facility] 20 mg 4-18 tablet by [facility] tablet 00:00: mouth [place] 00 every 6 Medical (six) Branch hours as needed for Abdominal pain. ondansetron 2020-0 Yes [id number] 4mg Take 1 [facility] (ZOFR[facility]) 4 4-18 tablet by [facility] mg tablet 00:00: mouth [place] 00 every 8 Medical (eight) Branch hours as needed for Nausea and Vomiting (N/V). pantoprazol 2020-0 Yes [id number] 40mg Take 1 [facility] e 4-18 tablet by [facility] (PROTONIX) 00:00: mouth [place] 40 mg EC 00 daily. Medical tablet Branch dicyclomine 2020-0 Yes [id number] 20mg Take 1 [facility] 20 mg 4-18 tablet by [facility] tablet 00:00: mouth [place] 00 every 6 Medical (six) Branch hours as needed for Abdominal pain. ondansetron 2020-0 Yes [id number] 4mg Take 1 [facility] (ZOFRAN) 4 4-18 tablet by [facility] mg tablet 00:00: mouth [place] 00 every 8 Medical (eight) Branch hours as needed for Nausea and Vomiting (N/V). pantoprazol 2020-0 Yes [id number] 40mg Take 1 [facility] e 4-18 tablet by [facility] (PROTONIX) 00:00: mouth [place] 40 mg EC 00 daily. Medical tablet Branch dicyclomine 2020-0 Yes [id number] 20mg Take 1 [facility] 20 mg 4-18 tablet by [facility] tablet 00:00: mouth [place] 00 every 6 Medical (six) Branch hours as needed for Abdominal pain. ondansetron 2020-0 Yes [id number] 4mg Take 1 [facility] (ZOFRAN) 4 4-18 tablet by [facility] of mg tablet 00:00: mouth [place] 00 every 8 Medical (eight) Branch hours as needed for Nausea and Vomiting (N/V). pantoprazol 2020-0 Yes [id number] 40mg Take 1 [facility] e 4-18 tablet by [facility] of (PROTONIX) 00:00: mouth [place] 40 mg EC 00 daily. Medical tablet Branch dicyclomine 0 Yes [id number] 20mg Take 1 [facility] 20 mg 4-18 tablet by [facility] of tablet 00:00: mouth [place] 00 every 6 Medical (six) Branch hours as needed for Abdominal pain. ondansetron 2020-0 Yes [id number] 4mg Take 1 [facility] (ZOFRAN) 4 4-18 tablet by [facility] of mg tablet 00:00: mouth [place] 00 every 8 Medical (eight) Branch hours as needed for Nausea and Vomiting (N/V). pantoprazol 2020-0 Yes [id number] 40mg Take 1 [facility] e 4-18 tablet by [facility] of (PROTONIX) 00:00: mouth [place] 40 mg EC 00 daily. Medical tablet Branch dicyclomine 2020-0 Yes [id number] 20mg Take 1 [facility] 20 mg 4-18 tablet by [facility] tablet 00:00: mouth [place] 00 every 6 Medical (six) Branch hours as needed for Abdominal pain. ondansetron 2020-0 Yes [id number] 4mg Take 1 [facility] (ZOFRAN) 4 4-18 tablet by [facility] of mg tablet 00:00: mouth [place] 00 every 8 Medical (eight) Branch hours as needed for Nausea and Vomiting (N/V). pantoprazol 2020-0 Yes [id number] 40mg Take 1 [facility] e 4-18 tablet by [facility] of (PROTONIX) 00:00: mouth [place] 40 mg EC 00 daily. Medical tablet Branch dicyclomine 2020-0 Yes [id number] 20mg Take 1 [facility] 20 mg 4-18 tablet by [facility] tablet 00:00: mouth [place] 00 every 6 Medical (six) Branch hours as needed for Abdominal pain. ondansetron 2020-0 Yes [id number] 4mg Take 1 [facility] (ZOFRAN) 4 4-18 tablet by [facility] of mg tablet 00:00: mouth [place] 00 every 8 Medical (eight) Branch hours as needed for Nausea and Vomiting (N/V). pantoprazol 2020-0 Yes [id number] 40mg Take 1 [facility] e 4-18 tablet by [facility] of (PROTONIX) 00:00: mouth [place] 40 mg EC 00 daily. Medical tablet Branch dicyclomine 2020-0 Yes [id number] 20mg Take 1 [facility] 20 mg 4-18 tablet by [facility] of tablet 00:00: mouth [place] 00 every 6 Medical (six) Branch hours as needed for Abdominal pain. ondansetron 2020-0 Yes [id number] 4mg Take 1 [facility] (ZOFRAN) 4 4-18 tablet by [facility] of mg tablet 00:00: mouth [place] 00 every 8 Medical (eight) Branch hours as needed for Nausea and Vomiting (N/V). pantoprazol 2020-0 Yes [id number] 40mg Take 1 [facility] e 4-18 tablet by [facility] of (PROTONIX) 00:00: mouth [place] 40 mg EC 00 daily. Medical tablet Branch dicyclomine 2020-0 Yes [id number] 20mg Take 1 [facility] 20 mg 4-18 tablet by [facility] of tablet 00:00: mouth [place] 00 every 6 Medical (six) Branch hours as needed for Abdominal pain. ondansetron 2020-0 Yes [id number] 4mg Take 1 [facility] (ZOFRAN) 4 4-18 tablet by [facility] of mg tablet 00:00: mouth [place] 00 every 8 Medical (eight) Branch hours as needed for Nausea and Vomiting (N/V). pantoprazol 2020-0 Yes [id number] 40mg Take 1 [facility] e 4-18 tablet by [facility] of (PROTONIX) 00:00: mouth [place] 40 mg EC 00 daily. Medical tablet Branch dicyclomine 2020-0 Yes [id number] 20mg Take 1 [facility] 20 mg 4-18 tablet by [facility] of tablet 00:00: mouth [place] 00 every 6 Medical (six) Branch hours as needed for Abdominal pain. ondansetron 2020-0 Yes [id number] 4mg Take 1 [facility] (ZOFRAN) 4 4-18 tablet by [facility] of mg tablet 00:00: mouth [place] 00 every 8 Medical (eight) Branch hours as needed for Nausea and Vomiting (N/V). pantoprazol 2020-0 Yes [id number] 40mg Take 1 [facility] e 4-18 tablet by [facility] of (PROTONIX) 00:00: mouth [place] 40 mg EC 00 daily. Medical tablet Branch dicyclomine 0 Yes [id number] 20mg Take 1 [facility] 20 mg 4-18 tablet by [facility] of tablet 00:00: mouth [place] 00 every 6 Medical (six) Branch hours as needed for Abdominal pain. ondansetron 2020-0 Yes [id number] 4mg Take 1 [facility] (ZOFRAN) 4 4-18 tablet by [facility] of mg tablet 00:00: mouth [place] 00 every 8 Medical (eight) Branch hours as needed for Nausea and Vomiting (N/V). pantoprazol 2020-0 Yes [id number] 40mg Take 1 [facility] e 4-18 tablet by [facility] of (PROTONIX) 00:00: mouth [place] 40 mg EC 00 daily. Medical tablet Branch dicyclomine 2020-0 Yes [id number] 20mg Take 1 [facility] 20 mg 4-18 tablet by [facility] of tablet 00:00: mouth [place] 00 every 6 Medical (six) Branch hours as needed for Abdominal pain. ondansetron 2020-0 Yes [id number] 4mg Take 1 [facility] (ZOFRAN) 4 4-18 tablet by [facility] of mg tablet 00:00: mouth [place] 00 every 8 Medical (eight) Branch hours as needed for Nausea and Vomiting (N/V). pantoprazol 2020-0 Yes [id number] 40mg Take 1 [facility] e 4-18 tablet by [facility] of (PROTONIX) 00:00: mouth [place] 40 mg EC 00 daily. Medical tablet Branch dicyclomine 2020-0 Yes [id number] 20mg Take 1 [facility] 20 mg 4-18 tablet by [facility] of tablet 00:00: mouth [place] 00 every 6 Medical (six) Branch hours as needed for Abdominal pain. ondansetron 2020-0 Yes [id number] 4mg Take 1 [facility] (ZOFRAN) 4 4-18 tablet by [facility] of mg tablet 00:00: mouth [place] 00 every 8 Medical (eight) Branch hours as needed for Nausea and Vomiting (N/V). pantoprazol 2020-0 Yes [id number] 40mg Take 1 [facility] e 4-18 tablet by [facility] of (PROTONIX) 00:00: mouth [place] 40 mg EC 00 daily. Medical tablet Branch dicyclomine 2020-0 Yes [id number] 20mg Take 1 [facility] 20 mg 4-18 tablet by [facility] of tablet 00:00: mouth [place] 00 every 6 Medical (six) Branch hours as needed for Abdominal pain. ondansetron 2020-0 Yes [id number] 4mg Take 1 [facility] (ZOFRAN) 4 4-18 tablet by [facility] of mg tablet 00:00: mouth [place] 00 every 8 Medical (eight) Branch hours as needed for Nausea and Vomiting (N/V). pantoprazol 2020-0 Yes [id number] 40mg Take 1 [facility] e 4-18 tablet by [facility] of (PROTONIX) 00:00: mouth [place] 40 mg EC 00 daily. Medical tablet Branch dicyclomine 2020-0 Yes [id number] 20mg Take 1 [facility] 20 mg 4-18 tablet by [facility] tablet 00:00: mouth [place] 00 every 6 Medical (six) Branch hours as needed for Abdominal pain. ondansetron 2020-0 Yes [id number] 4mg Take 1 [facility] (ZOFRAN) 4 4-18 tablet by [facility] of mg tablet 00:00: mouth [place] 00 every 8 Medical (eight) Branch hours as needed for Nausea and Vomiting (N/V). pantoprazol 2020-0 Yes [id number] 40mg Take 1 [facility] e 4-18 tablet by [facility] of (PROTONIX) 00:00: mouth [place] 40 mg EC 00 daily. Medical tablet Branch dicyclomine 2020-0 Yes [id number] 20mg Take 1 [facility] 20 mg 4-18 tablet by [facility] of tablet 00:00: mouth [place] 00 every 6 Medical (six) Branch hours as needed for Abdominal pain. ondansetron 2020-0 Yes [id number] 4mg Take 1 [facility] (ZOFRAN) 4 4-18 tablet by [facility] of mg tablet 00:00: mouth [place] 00 every 8 Medical (eight) Branch hours as needed for Nausea and Vomiting (N/V). pantoprazol 2020-0 Yes [id number] 40mg Take 1 [facility] e 4-18 tablet by [facility] of (PROTONIX) 00:00: mouth [place] 40 mg EC 00 daily. Medical tablet Branch dicyclomine 2020-0 Yes [id number] 20mg Take 1 [facility] 20 mg 4-18 tablet by [facility] of tablet 00:00: mouth [place] 00 every 6 Medical (six) Branch hours as needed for Abdominal pain. ondansetron 2020-0 Yes [id number] 4mg Take 1 [facility] (ZOFR[facility]) 4 4-18 tablet by [facility] mg tablet 00:00: mouth [place] 00 every 8 Medical (eight) Branch hours as needed for Nausea and Vomiting (N/V). pantoprazol 2020-0 Yes [id number] 40mg Take 1 [facility] e 4-18 tablet by [facility] of (PROTONIX) 00:00: mouth [place] 40 mg EC 00 daily. Medical tablet Branch dicyclomine 2020-0 Yes [id number] 20mg Take 1 [facility] 20 mg 4-18 tablet by [facility] tablet 00:00: mouth [place] 00 every 6 Medical (six) Branch hours as needed for Abdominal pain. ondansetron 2020-0 Yes [id number] 4mg Take 1 [facility] (ZOFR[facility]) 4 4-18 tablet by [facility] mg tablet 00:00: mouth [place] 00 every 8 Medical (eight) Branch hours as needed for Nausea and Vomiting (N/V). pantoprazol 2020-0 Yes [id number] 40mg Take 1 [facility] e 4-18 tablet by [facility] of (PROTONIX) 00:00: mouth [place] 40 mg EC 00 daily. Medical tablet Branch dicyclomine 2020-0 Yes [id number] 20mg Take 1 [facility] 20 mg 4-18 tablet by [facility] of tablet 00:00: mouth [place] 00 every 6 Medical (six) Branch hours as needed for Abdominal pain. ondansetron 2020-0 Yes [id number] 4mg Take 1 [facility] (ZOFR[facility]) 4 4-18 tablet by [facility] of mg tablet 00:00: mouth [place] 00 every 8 Medical (eight) Branch hours as needed for Nausea and Vomiting (N/V). pantoprazol 2020-0 Yes [id number] 40mg Take 1 [facility] e 4-18 tablet by [facility] of (PROTONIX) 00:00: mouth [place] 40 mg EC 00 daily. Medical tablet Branch dicyclomine 2020-0 Yes [id number] 20mg Take 1 [facility] 20 mg 4-18 tablet by [facility] of tablet 00:00: mouth [place] 00 every 6 Medical (six) Branch hours as needed for Abdominal pain. ondansetron 2020-0 Yes [id number] 4mg Take 1 [facility] (ZOFR[facility]) 4 4-18 tablet by [facility] of mg tablet 00:00: mouth [place] 00 every 8 Medical (eight) Branch hours as needed for Nausea and Vomiting (N/V). pantoprazol 2020-0 Yes [id number] 40mg Take 1 [facility] e 4-18 tablet by [facility] of (PROTONIX) 00:00: mouth [place] 40 mg EC 00 daily. Medical tablet Branch dicyclomine 0 Yes [id number] 20mg Take 1 [facility] 20 mg 4-18 tablet by [facility] of tablet 00:00: mouth [place] 00 every 6 Medical (six) Branch hours as needed for Abdominal pain. ondansetron 0 Yes [id number] 4mg Take 1 [facility] (ZOFR[facility]) 4 4-18 tablet by [facility] of mg tablet 00:00: mouth [place] 00 every 8 Medical (eight) Branch hours as needed for Nausea and Vomiting (N/V). pantoprazol 2020-0 Yes [id number] 40mg Take 1 [facility] e 4-18 tablet by [facility] of (PROTONIX) 00:00: mouth [place] 40 mg EC 00 daily. Medical tablet Branch dicyclomine 2020-0 Yes [id number] 20mg Take 1 [facility] 20 mg 4-18 tablet by [facility] of tablet 00:00: mouth [place] 00 every 6 Medical (six) Branch hours as needed for Abdominal pain. ondansetron 2020-0 Yes [id number] 4mg Take 1 [facility] (ZOFR[facility]) 4 4-18 tablet by [facility] of mg tablet 00:00: mouth [place] 00 every 8 Medical (eight) Branch hours as needed for Nausea and Vomiting (N/V). pantoprazol 2020-0 Yes [id number] 40mg Take 1 [facility] e 4-18 tablet by [facility] of (PROTONIX) 00:00: mouth [place] 40 mg EC 00 daily. Medical tablet Branch dicyclomine 2020-0 Yes [id number] 20mg Take 1 [facility] 20 mg 4-18 tablet by [facility] of tablet 00:00: mouth [place] 00 every 6 Medical (six) Branch hours as needed for Abdominal pain. ondansetron 2020-0 Yes [id number] 4mg Take 1 [facility] (ZOFRAN) 4 4-18 tablet by [facility] of mg tablet 00:00: mouth [place] 00 every 8 Medical (eight) Branch hours as needed for Nausea and Vomiting (N/V). pantoprazol 2020-0 Yes [id number] 40mg Take 1 [facility] e 4-18 tablet by [facility] of (PROTONIX) 00:00: mouth [place] 40 mg EC 00 daily. Medical tablet Branch dicyclomine 2020-0 Yes [id number] 20mg Take 1 [facility] 20 mg 4-18 tablet by [facility] of tablet 00:00: mouth [place] 00 every 6 Medical (six) Branch hours as needed for Abdominal pain. ondansetron 2020-0 Yes [id number] 4mg Take 1 [facility] (ZOFR[facility]) 4 4-18 tablet by [facility] of mg tablet 00:00: mouth [place] 00 every 8 Medical (eight) Branch hours as needed for Nausea and Vomiting (N/V). pantoprazol 2020-0 Yes [id number] 40mg Take 1 [facility] e 4-18 tablet by [facility] of (PROTONIX) 00:00: mouth [place] 40 mg EC 00 daily. Medical tablet Branch dicyclomine 2020-0 Yes [id number] 20mg Take 1 [facility] 20 mg 4-18 tablet by [facility] of tablet 00:00: mouth [place] 00 every 6 Medical (six) Branch hours as needed for Abdominal pain. ondansetron 2020-0 Yes [id number] 4mg Take 1 [facility] (ZOFR[facility]) 4 4-18 tablet by [facility] of mg tablet 00:00: mouth [place] 00 every 8 Medical (eight) Branch hours as needed for Nausea and Vomiting (N/V). pantoprazol 2020-0 Yes [id number] 40mg Take 1 [facility] e 4-18 tablet by [facility] of (PROTONIX) 00:00: mouth [place] 40 mg EC 00 daily. Medical tablet Branch dicyclomine 2020-0 Yes [id number] 20mg Take 1 [facility] 20 mg 4-18 tablet by [facility] of tablet 00:00: mouth [place] 00 every 6 Medical (six) Branch hours as needed for Abdominal pain. ondansetron 2020-0 Yes [id number] 4mg Take 1 [facility] (ZOFR[facility]) 4 4-18 tablet by [facility] of mg tablet 00:00: mouth [place] 00 every 8 Medical (eight) Branch hours as needed for Nausea and Vomiting (N/V). pantoprazol 2020-0 Yes [id number] 40mg Take 1 [facility] e 4-18 tablet by [facility] of (PROTONIX) 00:00: mouth [place] 40 mg EC 00 daily. Medical tablet Branch dicyclomine 2020-0 Yes [id number] 20mg Take 1 [facility] 20 mg 4-18 tablet by [facility] of tablet 00:00: mouth [place] 00 every 6 Medical (six) Branch hours as needed for Abdominal pain. ondansetron 2020-0 Yes [id number] 4mg Take 1 [facility] (ZOFR[facility]) 4 4-18 tablet by [facility] of mg tablet 00:00: mouth [place] 00 every 8 Medical (eight) Branch hours as needed for Nausea and Vomiting (N/V). pantoprazol 2020-0 Yes [id number] 40mg Take 1 [facility] e 4-18 tablet by [facility] of (PROTONIX) 00:00: mouth [place] 40 mg EC 00 daily. Medical tablet Branch dicyclomine 2020-0 Yes [id number] 20mg Take 1 [facility] 20 mg 4-18 tablet by [facility] of tablet 00:00: mouth [place] 00 every 6 Medical (six) Branch hours as needed for Abdominal pain. ondansetron 2020-0 Yes [id number] 4mg Take 1 [facility] (ZOFR[facility]) 4 4-18 tablet by [facility] of mg tablet 00:00: mouth [place] 00 every 8 Medical (eight) Branch hours as needed for Nausea and Vomiting (N/V). pantoprazol 2020-0 Yes [id number] 40mg Take 1 [facility] e 4-18 tablet by [facility] of (PROTONIX) 00:00: mouth [place] 40 mg EC 00 daily. Medical tablet Branch dicyclomine 2020-0 Yes [id number] 20mg Take 1 [facility] 20 mg 4-18 tablet by [facility] of tablet 00:00: mouth [place] 00 every 6 Medical (six) Branch hours as needed for Abdominal pain. ondansetron 2021-0 Yes [id number] 4mg Take 1 [facility] (ZOFR[facility]) 4 4-18 [...] 00 DAILY UNTIL FINISHED. nystatin 2020-0 Yes [id number] Apply to [facility] 100,000 2-05 affected [facility] of unit/gram 00:00: area(s) 3 [place] as ointment 00 (three) Medical times Branch daily. nystatin 2020-0 Yes [id number] Apply to [facility] 100,000 2-05 affected [facility] of unit/gram 00:00: area(s) 3 [place] as ointment 00 (three) Medical times Branch daily. nystatin 2020-0 Yes [id number] Apply to [facility] 100,000 2-05 affected [facility] of unit/gram 00:00: area(s) 3 [place] as ointment 00 (three) Medical times Branch daily. nystatin 2020-0 Yes [id number] Apply to [facility] 100,000 2-05 affected ity of unit/gram 00:00: area(s) 3 [facility] ointment 00 (three) Medical times Branch daily. nystatin 2020-0 Yes [id number] Apply to [facility] 100,000 2-05 affected ity of unit/gram 00:00: area(s) 3 [facility] ointment 00 (three) Medical times Branch daily. nystatin 2020-0 Yes [id number] Apply to [facility] 100,000 2-05 affected ity of unit/gram 00:00: area(s) 3 [facility] ointment 00 (three) Medical times Branch daily. nystatin 2020-0 Yes [id number] Apply to [facility] 100,000 2-05 affected ity of unit/gram 00:00: area(s) 3 [facility] ointment 00 (three) Medical times Branch daily. nystatin 2020-0 Yes [id number] Apply to [facility] 100,000 2-05 affected ity of unit/gram 00:00: area(s) 3 [facility] ointment 00 (three) Medical times Branch daily. nystatin 2020-0 Yes [id number] Apply to [facility] 100,000 2-05 affected ity of unit/gram 00:00: area(s) 3 [facility] ointment 00 (three) Medical times Branch daily. nystatin 2020-0 Yes [id number] Apply to [facility] 100,000 2-05 affected ity of unit/gram 00:00: area(s) 3 [facility] ointment 00 (three) Medical times Branch daily. nystatin 2020-0 Yes [id number] Apply to [facility] 100,000 2-05 affected ity of unit/gram 00:00: area(s) 3 [facility] ointment 00 (three) Medical times Branch daily. nystatin 2020-0 Yes [id number] Apply to [facility] 100,000 2-05 affected ity of unit/gram 00:00: area(s) 3 [facility] ointment 00 (three) Medical times Branch daily. nystatin 2020-0 Yes [id number] Apply to [facility] 100,000 2-05 affected ity of unit/gram 00:00: area(s) 3 [facility] ointment 00 (three) Medical times Branch daily. nystatin 2020-0 Yes [id number] Apply to [facility] 100,000 2-05 affected ity of unit/gram 00:00: area(s) 3 [facility] ointment 00 (three) Medical times Branch daily. nystatin 2020-0 Yes [id number] Apply to [facility] 100,000 2-05 affected ity of unit/gram 00:00: area(s) 3 [facility] ointment 00 (three) Medical times Branch daily. nystatin 2020-0 Yes [id number] Apply to [facility] 100,000 2-05 affected ity of unit/gram 00:00: area(s) 3 [facility] ointment 00 (three) Medical times Branch daily. nystatin 2020-0 Yes [id number] Apply to [facility] 100,000 2-05 affected ity of unit/gram 00:00: area(s) 3 [facility] ointment 00 (three) Medical times Branch daily. nystatin 2020-0 Yes [id number] Apply to [facility] 100,000 2-05 affected ity of unit/gram 00:00: area(s) 3 [facility] ointment 00 (three) Medical times Branch daily. nystatin 2020-0 Yes [id number] Apply to [facility] 100,000 2-05 affected ity of unit/gram 00:00: area(s) 3 [facility] ointment 00 (three) Medical times [facility] daily. nystatin 2020-0 Yes [id number] Apply to [facility] 100,000 2-05 affected ity of unit/gram 00:00: area(s) 3 [facility] ointment 00 (three) Medical times Branch daily. nystatin 2020-0 Yes [id number] Apply to [facility] 100,000 2-05 affected ity of unit/gram 00:00: area(s) 3 [facility] ointment 00 (three) Medical times Branch daily. nystatin 2020-0 Yes [id number] Apply to [facility] 100,000 2-05 affected ity of unit/gram 00:00: area(s) 3 [facility] ointment 00 (three) Medical times Branch daily. nystatin 2020-0 Yes [id number] Apply to [facility] 100,000 2-05 affected ity of unit/gram 00:00: area(s) 3 [facility] ointment 00 (three) Medical times Branch daily. nystatin 2020-0 Yes [id number] Apply to [facility] 100,000 2-05 affected ity of unit/gram 00:00: area(s) 3 [facility] ointment 00 (three) Medical times Branch daily. nystatin 2020-0 Yes [id number] Apply to [facility] 100,000 2-05 affected ity of unit/gram 00:00: area(s) 3 [facility] ointment 00 (three) Medical times Branch daily. nystatin 2020-0 Yes [id number] Apply to [facility] 100,000 2-05 affected ity of unit/gram 00:00: area(s) 3 [facility] ointment 00 (three) Medical times Branch daily. nystatin 2020-0 Yes [id number] Apply to [facility] 100,000 2-05 affected ity of unit/gram 00:00: area(s) 3 [facility] ointment 00 (three) Medical times Branch daily. nystatin 2020-0 Yes [id number] Apply to [facility] 100,000 2-05 affected ity of unit/gram 00:00: area(s) 3 [facility] ointment 00 (three) Medical times Branch daily. nystatin 2020-0 Yes [id number] Apply to [facility] 100,000 2-05 affected ity of unit/gram 00:00: area(s) 3 [facility] ointment 00 (three) Medical times Branch daily. nystatin 2020-0 Yes [id number] Apply to [facility] 100,000 2-05 affected ity of unit/gram 00:00: area(s) 3 [facility] ointment 00 (three) Medical times Branch daily. nystatin 2020-0 Yes [id number] Apply to [facility] 100,000 2-05 affected ity of unit/gram 00:00: area(s) 3 [facility] ointment 00 (three) Medical times Branch daily. nystatin 2020-0 Yes [id number] Apply to [facility] 100,000 2-05 affected ity of unit/gram 00:00: area(s) 3 [facility] ointment 00 (three) Medical times Branch daily. nystatin 2020-0 Yes [id number] Apply to [facility] 100,000 2-05 affected ity of unit/gram 00:00: area(s) 3 [facility] ointment 00 (three) Medical times Branch daily. nystatin 2020-0 Yes [id number] Apply to [facility] 100,000 2-05 affected ity of unit/gram 00:00: area(s) 3 [facility] ointment 00 (three) Medical times Branch daily. nystatin 2020-0 Yes [id number] Apply to [facility] 100,000 2-05 affected ity of unit/gram 00:00: area(s) 3 [facility] ointment 00 (three) Medical times Branch daily. nystatin 2020-0 Yes [id number] Apply to [facility] 100,000 2-05 affected ity of unit/gram 00:00: area(s) 3 [facility] ointment 00 (three) Medical times Branch daily. nystatin 2020-0 Yes [id number] Apply to [facility] 100,000 2-05 affected ity of unit/gram 00:00: area(s) 3 [facility] ointment 00 (three) Medical times Branch daily. nystatin 2020-0 Yes [id number] Apply to [facility] 100,000 2-05 affected ity of unit/gram 00:00: area(s) 3 [facility] ointment 00 (three) Medical times Branch daily. nystatin 2020-0 Yes [id number] Apply to [facility] 100,000 2-05 affected ity of unit/gram 00:00: area(s) 3 [facility] ointment 00 (three) Medical times Branch daily. nystatin 2020-0 Yes [id number] Apply to [facility] 100,000 2-05 affected ity of unit/gram 00:00: area(s) 3 [facility] ointment 00 (three) Medical times Branch daily. nystatin 2020-0 Yes [id number] Apply to [facility] 100,000 2-05 affected ity of unit/gram 00:00: area(s) 3 [facility] ointment 00 (three) Medical times Branch daily. nystatin 2020-0 Yes [id number] Apply to [facility] 100,000 2-05 affected ity of unit/gram 00:00: area(s) 3 [facility] ointment 00 (three) Medical times Branch daily. nystatin 2020-0 Yes [id number] Apply to [facility] 100,000 2-05 affected ity of unit/gram 00:00: area(s) 3 [facility] ointment 00 (three) Medical times Branch daily. nystatin 2020-0 Yes [id number] Apply to [facility] 100,000 2-05 affected ity of unit/gram 00:00: area(s) 3 [facility] ointment 00 (three) Medical times Branch daily. nystatin 2020-0 Yes [id number] Apply to [facility] 100,000 2-05 affected ity of unit/gram 00:00: area(s) 3 [facility] ointment 00 (three) Medical times Branch daily. nystatin 2020-0 Yes [id number] Apply to [facility] 100,000 2-05 affected ity of unit/gram 00:00: area(s) 3 [facility] ointment 00 (three) Medical times Branch daily. nystatin 2020-0 Yes [id number] Apply to [facility] 100,000 2-05 affected ity [...] DAILY ans Tablet Tablet 00 DIRECTED. medroxyPROG 2019-0 Yes [id number] 150mg [facility] ESTERone 5-14 ity of (DEPO-PROVE 18:30: [place] [facility]) 00 Medical injection [facility] 150 mg medroxyPROG 2019-0 Yes [id number] 150mg [facility] ESTERone 5-14 ity of (DEPO-PROVE 18:30: [place] [facility]) 00 Medical injection [facility] 150 mg medroxyPROG 2019-0 Yes [id number] 150mg [facility] ESTERone 5-14 ity of (DEPO-PROVE 18:30: [place] [facility]) 00 Medical injection [facility] 150 mg medroxyPROG 2019-0 Yes [id number] 150mg [facility] ESTERone 5-14 ity of (DEPO-PROVE 18:30: [place] [facility]) 00 Medical injection [facility] 150 mg medroxyPROG 2019-0 Yes [id number] 150mg [facility] ESTERone 5-14 ity of (DEPO-PROVE 18:30: [place] [facility]) 00 Medical injection [facility] 150 mg medroxyPROG 2019-0 Yes [id number] 150mg [facility] ESTERone 5-14 ity of (DEPO-PROVE 18:30: [place] [facility]) 00 Medical injection [facility] 150 mg medroxyPROG 2019-0 Yes [id number] 150mg [facility] ESTERone 5-14 ity of (DEPO-PROVE 18:30: [place] [facility]) 00 Medical injection [facility] 150 mg medroxyPROG 2019-0 Yes [id number] 150mg [facility] ESTERone 5-14 ity of (DEPO-PROVE 18:30: [place] [facility]) 00 Medical injection [facility] 150 mg medroxyPROG 2019-0 Yes [id number] 150mg [facility] ESTERone 5-14 ity of (DEPO-PROVE 18:30: [place] [facility]) 00 Medical injection [facility] 150 mg medroxyPROG 2019-0 Yes [id number] 150mg [facility] ESTERone 5-14 ity of (DEPO-PROVE 18:30: [place] [facility]) 00 Medical injection [facility] 150 mg medroxyPROG 2019-0 Yes [id number] 150mg [facility] ESTERone 5-14 ity of (DEPO-PROVE 18:30: [place] [facility]) 00 Medical injection [facility] 150 mg medroxyPROG 2019-0 Yes [id number] 150mg [facility] ESTERone 5-14 ity of (DEPO-PROVE 18:30: [place] [facility]) 00 Medical injection [facility] 150 mg medroxyPROG 2019-0 Yes [id number] 150mg [facility] ESTERone 5-14 ity of (DEPO-PROVE 18:30: [place] [facility]) 00 Medical injection [facility] 150 mg medroxyPROG 2019-0 Yes [id number] 150mg [facility] ESTERone 5-14 ity of (DEPO-PROVE 18:30: [place] [facility]) 00 Medical injection [facility] 150 mg medroxyPROG 2019-0 Yes [id number] 150mg [facility] ESTERone 5-14 ity of (DEPO-PROVE 18:30: [place] [facility]) 00 Medical injection [facility] 150 mg medroxyPROG 2019-0 Yes [id number] 150mg [facility] ESTERone 5-14 ity of (DEPO-PROVE 18:30: [place] [facility]) 00 Medical injection [facility] 150 mg medroxyPROG 2019-0 Yes [id number] 150mg [facility] ESTERone 5-14 ity of (DEPO-PROVE 18:30: [place] [facility]) 00 Medical injection [facility] 150 mg medroxyPROG 2019-0 Yes [id number] 150mg [facility] ESTERone 5-14 ity of (DEPO-PROVE 18:30: [place] [facility]) 00 Medical injection [facility] 150 mg medroxyPROG 2019-0 Yes [id number] 150mg [facility] ESTERone 5-14 ity of (DEPO-PROVE 18:30: [place] [facility]) 00 Medical injection [facility] 150 mg medroxyPROG 2019-0 Yes [id number] 150mg [facility] ESTERone 5-14 ity of (DEPO-PROVE 18:30: [place] [facility]) 00 Medical injection [facility] 150 mg medroxyPROG 2019-0 Yes [id number] 150mg [facility] ESTERone 5-14 ity of (DEPO-PROVE 18:30: [place] [facility]) 00 Medical injection [facility] 150 mg medroxyPROG 2019-0 Yes [id number] 150mg [facility] ESTERone 5-14 ity of (DEPO-PROVE 18:30: [place] [facility]) 00 Medical injection Branch 150 mg medroxyPROG 2019-0 Yes [id number] 150mg [facility] ESTERone 5-14 ity of (DEPO-PROVE 18:30: [place] [facility]) 00 Medical injection [facility] 150 mg medroxyPROG 2019-0 Yes [id number] 150mg [facility] ESTERone 5-14 ity of (DEPO-PROVE 18:30: [place] [facility]) 00 Medical injection [facility] 150 mg medroxyPROG 2019-0 Yes [id number] 150mg [facility] ESTERone 5-14 ity of (DEPO-PROVE 18:30: [place] [facility]) 00 Medical injection [facility] 150 mg medroxyPROG 2019-0 Yes [id number] 150mg [facility] ESTERone 5-14 ity of (DEPO-PROVE 18:30: [place] [facility]) 00 Medical injection Branch 150 mg medroxyPROG 2019-0 Yes [id number] 150mg [facility] ESTERone 5-14 ity of (DEPO-PROVE 18:30: [place] [facility]) 00 Medical injection Branch 150 mg medroxyPROG 2019-0 Yes [id number] 150mg [facility] ESTERone 5-14 ity of (DEPO-PROVE 18:30: [place] [facility]) 00 Medical injection Branch 150 mg medroxyPROG 2019-0 Yes [id number] 150mg [facility] ESTERone 5-14 ity of (DEPO-PROVE 18:30: [place] [facility]) 00 Medical injection Branch 150 mg medroxyPROG 2019-0 Yes [id number] 150mg [facility] ESTERone 5-14 ity of (DEPO-PROVE 18:30: [place] [facility]) 00 Medical injection Branch 150 mg medroxyPROG 2019-0 Yes [id number] 150mg [facility] ESTERone 5-14 ity of (DEPO-PROVE 18:30: [place] [facility]) 00 Medical injection Branch 150 mg medroxyPROG 2019-0 Yes [id number] 150mg [facility] ESTERone 5-14 ity of (DEPO-PROVE 18:30: [place] [facility]) 00 Medical injection Branch 150 mg medroxyPROG 2019-0 Yes [id number] 150mg [facility] ESTERone 5-14 ity of (DEPO-PROVE 18:30: [place] [facility]) 00 Medical injection Branch 150 mg medroxyPROG 2019-0 Yes [id number] 150mg [facility] ESTERone 5-14 ity of (DEPO-PROVE 18:30: [place] [facility]) 00 Medical injection Branch 150 mg medroxyPROG 2019-0 Yes [id number] 150mg [facility] ESTERone 5-14 ity of (DEPO-PROVE 18:30: [place] [facility]) 00 Medical injection Branch 150 mg medroxyPROG 2019-0 Yes [id number] 150mg [facility] ESTERone 5-14 ity of (DEPO-PROVE 18:30: [place] [facility]) 00 Medical injection Branch 150 mg medroxyPROG 2019-0 Yes [id number] 150mg [facility] ESTERone 5-14 ity of (DEPO-PROVE 18:30: [place] [facility]) 00 Medical injection Branch 150 mg medroxyPROG 2019-0 Yes [id number] 150mg [facility] ESTERone 5-14 ity of (DEPO-PROVE 18:30: [place] [facility]) 00 Medical injection Branch 150 mg medroxyPROG 2019-0 Yes [id number] 150mg [facility] ESTERone 5-14 ity of (DEPO-PROVE 18:30: [place] [facility]) 00 Medical injection Branch 150 mg medroxyPROG 2019-0 Yes [id number] 150mg [facility] ESTERone 5-14 ity of (DEPO-PROVE 18:30: [place] [facility]) 00 Medical injection Branch 150 mg medroxyPROG 2019-0 Yes [id number] 150mg [facility] ESTERone 5-14 ity of (DEPO-PROVE 18:30: [place] [facility]) 00 Medical injection Branch 150 mg medroxyPROG 2019-0 Yes [id number] 150mg [facility] ESTERone 5-14 ity of (DEPO-PROVE 18:30: [place] [facility]) 00 Medical injection Branch 150 mg medroxyPROG 2019-0 Yes [id number] 150mg [facility] ESTERone 5-14 ity of (DEPO-PROVE 18:30: [place] [facility]) 00 Medical injection Branch 150 mg medroxyPROG 2019-0 Yes [id number] 150mg [facility] ESTERone 5-14 ity of (DEPO-PROVE 18:30: [place] [facility]) 00 Medical injection Branch 150 mg medroxyPROG 2019-0 Yes [id number] 150mg [facility] ESTERone 5-14 ity of (DEPO-PROVE 18:30: [place] [facility]) 00 Medical injection Branch 150 mg medroxyPROG 2019-0 Yes [id number] 150mg [facility] ESTERone 5-14 ity of (DEPO-PROVE 18:30: [place] [facility]) 00 Medical injection Branch 150 mg medroxyPROG 2019-0 Yes [id number] 150mg [facility] ESTERone 5-14 ity of (DEPO-PROVE 18:30: [place] [facility]) 00 Medical injection Branch 150 mg Keppra 500 Keppra 500 2019-0 Yes M.D. U T MG Oral MG Oral 1-02 [facility] Tablet Tablet 00:00: ans 00 Immunizations Ordered Immunization Filled Immunization Date Status Commen ts Source Name Name SARS-COV-2 COVID-19 2021-08-06 Completed Unive rsity of PFIZER VACCINE 00:00:00 [facility] SARS-COV-2 COVID-19 2021-08-06 Completed Unive rsity of PFIZER VACCINE 00:00:00 [facility] SARS-COV-2 COVID-19 2021-08-06 Completed Unive rsity of PFIZER VACCINE 00:00:00 [facility] SARS-COV-2 COVID-19 2021-08-06 Completed Unive rsity of PFIZER VACCINE 00:00:00 [facility] SARS-COV-2 COVID-19 2021-08-06 Completed Unive rsity of PFIZER VACCINE 00:00:00 [facility] SARS-COV-2 COVID-19 2021-08-06 Completed Unive rsity of PFIZER VACCINE 00:00:00 [facility] SARS-COV-2 COVID-19 2021-08-06 Completed Unive rsity of PFIZER VACCINE 00:00:00 [facility] SARS-COV-2 COVID-19 2021-08-06 Completed Unive rsity of PFIZER VACCINE 00:00:00 [facility] SARS-COV-2 COVID-19 2021-08-06 Completed Unive rsity of PFIZER VACCINE 00:00:00 [facility] SARS-COV-2 COVID-19 2021-08-06 Completed Unive rsity of PFIZER VACCINE 00:00:00 [facility] SARS-COV-2 COVID-19 2021-08-06 Completed Unive rsity of PFIZER VACCINE 00:00:00 [facility] SARS-COV-2 COVID-19 2021-08-06 Completed Unive rsity of PFIZER VACCINE 00:00:00 [facility] SARS-COV-2 COVID-19 2021-08-06 Completed Unive rsity of PFIZER VACCINE 00:00:00 [facility] SARS-COV-2 COVID-19 2021-08-06 Completed Unive rsity of PFIZER VACCINE 00:00:00 [facility] SARS-COV-2 COVID-19 2021-08-06 Completed Unive rsity of PFIZER VACCINE 00:00:00 [facility] SARS-COV-2 COVID-19 2021-08-06 Completed Unive rsity of PFIZER VACCINE 00:00:00 [facility] SARS-COV-2 COVID-19 2021-08-06 Completed Unive rsity of PFIZER VACCINE 00:00:00 [facility] SARS-COV-2 COVID-19 2021-08-06 Completed Unive rsity of PFIZER VACCINE 00:00:00 [facility] SARS-COV-2 COVID-19 2021-08-06 Completed Unive rsity of PFIZER VACCINE 00:00:00 [facility] SARS-COV-2 COVID-19 2021-08-06 Completed Unive rsity of PFIZER VACCINE 00:00:00 [facility] SARS-COV-2 COVID-19 2021-08-06 Completed Unive rsity of PFIZER VACCINE 00:00:00 [facility] SARS-COV-2 COVID-19 2021-08-06 Completed Unive rsity of PFIZER VACCINE 00:00:00 [facility] SARS-COV-2 COVID-19 2021-08-06 Completed Unive rsity of PFIZER VACCINE 00:00:00 [facility] SARS-COV-2 COVID-19 2021-08-06 Completed Unive rsity of PFIZER VACCINE 00:00:00 [facility] PFIZER COVID-19 MRNA 2021-08-06 Completed Meth odist VACCINATION 00:00:00 [facility] PFIZER COVID-19 MRNA 2021-08-06 Completed Meth odist VACCINATION 00:00:00 [facility] PFIZER COVID-19 MRNA 2021-08-06 Completed Meth odist VACCINATION 00:00:00 [facility] PFIZER COVID-19 MRNA 2021-08-06 Completed Meth odist VACCINATION 00:00:00 [facility] SARS-COV-2 COVID-19 2021-07-09 Completed Unive rsity of PFIZER VACCINE 00:00:00 [facility] Influenza Virus 2021-07-09 Completed Universit y of Vaccine Quad .5 mL IM 00:00:00 [facility] 6+ MO Branch SARS-COV-2 COVID-19 2021-07-09 Completed Unive rsity of PFIZER VACCINE 00:00:00 [facility] Influenza Virus 2021-07-09 Completed Universit y of Vaccine Quad .5 mL IM 00:00:00 [facility] 6[facility] MO Branch SARS-COV-2 COVID-19 2021-07-09 Completed Unive rsity of PFIZER VACCINE 00:00:00 [facility] Influenza Virus 2021-07-09 Completed Universit y of Vaccine Quad .5 mL IM 00:00:00 [facility] 6+ MO Branch SARS-COV-2 COVID-19 2021-07-09 Completed Unive rsity of PFIZER VACCINE 00:00:00 [facility] Influenza Virus 2021-07-09 Completed Universit y of Vaccine Quad .5 mL IM 00:00:00 [facility] 6[facility] MO Branch SARS-COV-2 COVID-19 2021-07-09 Completed Unive rsity of PFIZER VACCINE 00:00:00 [facility] Influenza Virus 2021-07-09 Completed Universit y of Vaccine Quad .5 mL IM 00:00:00 [facility] 6[facility] MO Branch SARS-COV-2 COVID-19 2021-07-09 Completed Unive rsity of PFIZER VACCINE 00:00:00 [facility] Influenza Virus 2021-07-09 Completed Universit y of Vaccine Quad .5 mL IM 00:00:00 [facility] 6[facility] MO Branch SARS-COV-2 COVID-19 2021-07-09 Completed Unive rsity of PFIZER VACCINE 00:00:00 [facility] Influenza Virus 2021-07-09 Completed Universit y of Vaccine Quad .5 mL IM 00:00:00 [facility] 6[facility] MO Branch SARS-COV-2 COVID-19 2021-07-09 Completed Unive rsity of PFIZER VACCINE 00:00:00 [facility] Influenza Virus 2021-07-09 Completed Universit y of Vaccine Quad .5 mL IM 00:00:00 [facility] 6[facility] MO Branch SARS-COV-2 COVID-19 2021-07-09 Completed Unive rsity of PFIZER VACCINE 00:00:00 [facility] Influenza Virus 2021-07-09 Completed Universit y of Vaccine Quad .5 mL IM 00:00:00 [facility] Branch SARS-COV-2 COVID-19 2021-07-09 Completed Unive rsity of PFIZER VACCINE 00:00:00 [facility] Influenza Virus 2021-07-09 Completed Universit y of Vaccine Quad .5 mL IM 00:00:00 [facility] Branch SARS-COV-2 COVID-19 2021-07-09 Completed Unive rsity of PFIZER VACCINE 00:00:00 [facility] Influenza Virus 2021-07-09 Completed Universit y of Vaccine Quad .5 mL IM 00:00:00 [facility] MO Branch SARS-COV-2 COVID-19 2021-07-09 Completed Unive rsity of PFIZER VACCINE 00:00:00 [facility] Influenza Virus 2021-07-09 Completed Universit y of Vaccine Quad .5 mL IM 00:00:00 [facility] MO Branch SARS-COV-2 COVID-19 2021-07-09 Completed Unive rsity of PFIZER VACCINE 00:00:00 [facility] Influenza Virus 2021-07-09 Completed Universit y of Vaccine Quad .5 mL IM 00:00:00 [facility] 6[facility] MO Branch SARS-COV-2 COVID-19 2021-07-09 Completed Unive rsity of PFIZER VACCINE 00:00:00 [facility] Influenza Virus 2021-07-09 Completed Universit y of Vaccine Quad .5 mL IM 00:00:00 [facility] 6[facility] MO Branch SARS-COV-2 COVID-19 2021-07-09 Completed Unive rsity of PFIZER VACCINE 00:00:00 [facility] Influenza Virus 2021-07-09 Completed Universit y of Vaccine Quad .5 mL IM 00:00:00 [facility] 6[facility] MO Branch SARS-COV-2 COVID-19 2021-07-09 Completed Unive rsity of PFIZER VACCINE 00:00:00 [facility] Influenza Virus 2021-07-09 Completed Universit y of Vaccine Quad .5 mL IM 00:00:00 [facility] Branch SARS-COV-2 COVID-19 2021-07-09 Completed Unive rsity of PFIZER VACCINE 00:00:00 [facility] Influenza Virus 2021-07-09 Completed Universit y of Vaccine Quad .5 mL IM 00:00:00 [facility] Branch SARS-COV-2 COVID-19 2021-07-09 Completed Unive rsity of PFIZER VACCINE 00:00:00 [facility] Influenza Virus 2021-07-09 Completed Universit y of Vaccine Quad .5 mL IM 00:00:00 [facility] MO Branch SARS-COV-2 COVID-19 2021-07-09 Completed Unive rsity of PFIZER VACCINE 00:00:00 [facility] Influenza Virus 2021-07-09 Completed Universit y of Vaccine Quad .5 mL IM 00:00:00 [facility] MO Branch SARS-COV-2 COVID-19 2021-07-09 Completed Unive rsity of PFIZER VACCINE 00:00:00 [facility] Influenza Virus 2021-07-09 Completed Universit y of Vaccine Quad .5 mL IM 00:00:00 [facility] Branch SARS-COV-2 COVID-19 2021-07-09 Completed Unive rsity of PFIZER VACCINE 00:00:00 [facility] Influenza Virus 2021-07-09 Completed Universit y of Vaccine Quad .5 mL IM 00:00:00 [facility] SARS-COV-2 COVID-19 2021-07-09 Completed Unive rsity of PFIZER VACCINE 00:00:00 [facility] Influenza Virus 2021-07-09 Completed [facility]it y of Vaccine Quad .5 mL IM 00:00:00 [facility] Branch SARS-COV-2 COVID-19 2021-07-09 Completed Unive rsity of PFIZER VACCINE 00:00:00 [facility] Influenza Virus 2021-07-09 Completed [facility]it y of Vaccine Quad .5 mL IM 00:00:00 [facility] Branch SARS-COV-2 COVID-19 2021-07-09 Completed Unive rsity of PFIZER VACCINE 00:00:00 [facility] Influenza Virus 2021-07-09 Completed [facility]it y of Vaccine Quad .5 mL IM 00:00:00 [facility] PFIZER COVID-19 MRNA 2021-07-09 Completed Meth odist VACCINATION 00:00:00 [facility] PFIZER COVID-19 MRNA 2021-07-09 Completed Meth odist VACCINATION 00:00:00 [facility] PFIZER COVID-19 MRNA 2021-07-09 Completed Meth odist VACCINATION 00:00:00 [facility] PFIZER COVID-19 MRNA 2021-07-09 Completed Meth odist VACCINATION 00:00:00 [facility] PFIZER COVID-19 MRNA 2021-07-09 Completed Meth odist VACCINATION 00:00:00 [facility] PFIZER COVID-19 MRNA 2021-07-09 Completed Meth odist VACCINATION 00:00:00 [facility] Tetanus/Diptheria 2016-08-11 Completed Univers ity of 00:00:00 [facility] Varicella 2016-08-11 Completed University of (varivax)(chicken 00:00:00 [place] [facility] pox) [facility] Tetanus/Diptheria 2016-08-11 Completed Univers ity of 00:00:00 [facility] Varicella 2016-08-11 Completed University of (varivax)(chicken 00:00:00 [place] [facility] pox) Branch Tetanus/Diptheria 2016-08-11 Completed Univers ity of 00:00:00 [facility] Varicella 2016-08-11 Completed University of (varivax)(chicken 00:00:00 [place] [facility] pox) Branch Tetanus/Diptheria 2016-08-11 Completed Univers ity of 00:00:00 [facility] Varicella 2016-08-11 Completed University of (varivax)(chicken 00:00:00 [place] [facility] pox) Branch Tetanus/Diptheria 2016-08-11 Completed Univers ity of 00:00:00 [facility] Varicella 2016-08-11 Completed [facility] of (varivax)(chicken 00:00:00 [place] [facility] pox) Branch Tetanus/Diptheria 2016-08-11 Completed Univers ity of 00:00:00 [facility] Varicella 2016-08-11 Completed University of (varivax)(chicken 00:00:00 [place] [facility] pox) Branch Tetanus/Diptheria 2016-08-11 Completed Univers ity of 00:00:00 [facility] Varicella 2016-08-11 Completed University of (varivax)(chicken 00:00:00 [place] [facility] pox) Branch Tetanus/Diptheria 2016-08-11 Completed Univers ity of 00:00:00 [facility] Varicella 2016-08-11 Completed University of (varivax)(chicken 00:00:00 [place] [facility] pox) Branch Tetanus/Diptheria 2016-08-11 Completed Univers ity of 00:00:00 [facility] Varicella 2016-08-11 Completed [facility] of (varivax)(chicken 00:00:00 [place] [facility] pox) Branch Tetanus/Diptheria 2016-08-11 Completed Univers ity of 00:00:00 [facility] Varicella 2016-08-11 Completed University of (varivax)(chicken 00:00:00 [place] [facility] pox) Branch Tetanus/Diptheria 2016-08-11 Completed Univers ity of 00:00:00 [facility] Varicella 2016-08-11 Completed [facility] of (varivax)(chicken 00:00:00 [place] [facility] pox) Branch Tetanus/Diptheria 2016-08-11 Completed [facility] 00:00:00 [facility] Varicella 2016-08-11 Completed University of (varivax)(chicken 00:00:00 [place] [facility] pox[facility] Tetanus/Diptheria 2016-08-11 Completed [facility] 00:00:00 [facility] Varicella 2016-08-11 Completed [facility] (varivax)(chicken 00:00:00 [place] [facility]ox[facility] Tetanus/Diptheria 2016-08-11 Completed [facility] 00:00:00 [facility] Varicella 2016-08-11 Completed [facility] (varivax)(chicken 00:00:00 [place] [facility] Tetanus/Diptheria 2016-08-11 Completed [facility] 00:00:00 [facility] Varicella 2016-08-11 Completed [facility] (varivax)(chicken 00:00:00 [place] [facility] pox[facility] Tetanus/Diptheria 2016-08-11 Completed [facility] 00:00:00 [facility] Varicella 2016-08-11 Completed [facility] (varivax)(chicken 00:00:00 [place] [facility] pox[facility] Tetanus/Diptheria 2016-08-11 Completed [facility] 00:00:00 [facility] Varicella 2016-08-11 Completed [facility] of (varivax)(chicken 00:00:00 [place] [facility] pox[facility] Tetanus/Diptheria 2016-08-11 Completed [facility] 00:00:00 [facility] Varicella 2016-08-11 Completed [facility] of (varivax)(chicken 00:00:00 [place] [facility] pox[facility] Tetanus/Diptheria 2016-08-11 Completed [facility] 00:00:00 [facility] Varicella 2016-08-11 Completed [facility] of (varivax)(chicken 00:00:00 [place] [facility] pox[facility] Tetanus/Diptheria 2016-08-11 Completed [facility] 00:00:00 [facility] Varicella 2016-08-11 Completed [facility] of (varivax)(chicken 00:00:00 [place] [facility] pox[facility] Tetanus/Diptheria 2016-08-11 Completed [facility] 00:00:00 [facility] Varicella 2016-08-11 Completed [facility] of (varivax)(chicken 00:00:00 [place] [facility] pox[facility] Tetanus/Diptheria 2016-08-11 Completed [facility] 00:00:00 [facility] Varicella 2016-08-11 Completed [facility] of (varivax)(chicken 00:00:00 [place] [facility] pox[facility] Tetanus/Diptheria 2016-08-11 Completed [facility] 00:00:00 [facility] Varicella 2016-08-11 Completed [facility] of (varivax)(chicken 00:00:00 [place] [facility] pox[facility] Tetanus/Diptheria 2016-08-11 Completed [facility] 00:00:00 [facility] Varicella 2016-08-11 Completed University of (varivax)(chicken 00:00:00 [...] HEPATITIS A 2008-09-27 Completed [facility] 00:00:00 [facility] HPV 2008-09-27 Completed [facility] of 00:00:00 [facility] HEPATITIS A 2008-09-27 Completed [facility] of 00:00:00 [facility] HPV 2008-09-27 Completed [facility] of 00:00:00 [facility] HEPATITIS A 2008-09-27 Completed [facility] of 00:00:00 [facility] HPV 2008-09-27 Completed [facility] of 00:00:00 [facility] HEPATITIS A 2008-09-27 Completed [facility] 00:00:00 [facility] HPV 2008-09-27 Completed [facility] of 00:00:00 [facility] HEPATITIS A 2008-09-27 Completed [facility] of 00:00:00 [facility] HPV 2008-09-27 Completed [facility] of 00:00:00 [facility] HEPATITIS A 2008-09-27 Completed [facility] of 00:00:00 [facility] HPV 2008-09-27 Completed [facility] of 00:00:00 [facility] HEPATITIS A 2008-09-27 Completed [facility] of 00:00:00 [facility] HPV 2008-09-27 Completed [facility] of 00:00:00 [facility] HEPATITIS A 2008-09-27 Completed [facility] of 00:00:00 [facility] HPV 2008-09-27 Completed [facility] of 00:00:00 [facility] HEPATITIS A 2008-09-27 Completed [facility] of 00:00:00 [facility] HPV 2008-09-27 Completed [facility] of 00:00:00 [facility] HEPATITIS A 2008-09-27 Completed [facility] of 00:00:00 [facility] HPV 2008-09-27 Completed [facility] of 00:00:00 [facility] HEPATITIS A 2008-09-27 Completed [facility] of 00:00:00 [facility] HPV 2008-09-27 Completed [facility] of 00:00:00 [facility] HEPATITIS A 2008-09-27 Completed [facility] of 00:00:00 [facility] HPV 2008-09-27 Completed [facility] of 00:00:00 [facility] HEPATITIS A 2008-09-27 Completed [facility] of 00:00:00 [facility] HPV 2008-09-27 Completed [facility] of 00:00:00 [facility] HEPATITIS A 2008-09-27 Completed [facility] of 00:00:00 [facility] HPV 2008-09-27 Completed [facility] of 00:00:00 [facility] HEPATITIS A 2008-09-27 Completed University of [...] Branch HPV 2008-03-06 Completed [facility] of 00:00:00 [facility] HEPATITIS A 2008-03-06 Completed [facility] of 00:00:00 [facility] HPV 2008-03-06 Completed [facility] of 00:00:00 [facility] HEPATITIS A 2008-03-06 Completed [facility] of 00:00:00 [facility] HPV 2008-03-06 Completed [facility] of 00:00:00 [facility] Meningococcal 2007-12-29 Completed [facility] Polysaccharide 00:00:00 [place] [facility] (groups A, C, Y and Branc h W-135) conjugate vaccine (MCV4P) TDAP 2007-12-29 Completed [facility] of 00:00:00 [facility] Meningococcal 2007-12-29 Completed [facility] Polysaccharide 00:00:00 [place] [facility] (groups A, C, Y and Branc h W-135) conjugate vaccine (MCV4P) TDAP 2007-12-29 Completed [facility] of 00:00:00 [facility] Meningococcal 2007-12-29 Completed [facility] Polysaccharide 00:00:00 [place] [facility] (groups A, C, Y and Branc h W-135) conjugate vaccine (MCV4P) TDAP 2007-12-29 Completed [facility] of 00:00:00 [facility] Meningococcal 2007-12-29 Completed [facility] of Polysaccharide 00:00:00 [place] [facility] (groups A, C, Y and Branc h W-135) conjugate vaccine (MCV4P) TDAP 2007-12-29 Completed [facility] of 00:00:00 [facility] Meningococcal 2007-12-29 Completed [facility] Polysaccharide 00:00:00 [place] [facility] (groups A, C, Y and Branc h W-135) conjugate vaccine (MCV4P) TDAP 2007-12-29 Completed [facility] of 00:00:00 [facility] Meningococcal 2007-12-29 Completed [facility] of Polysaccharide 00:00:00 [place] [facility] (groups A, C, Y and Branc h W-135) conjugate vaccine (MCV4P) TDAP 2007-12-29 Completed [facility] of 00:00:00 [facility] Meningococcal 2007-12-29 Completed [facility] Polysaccharide 00:00:00 [place] [facility] (groups A, C, Y and Branc h W-135) conjugate vaccine (MCV4P) TDAP 2007-12-29 Completed [facility] of 00:00:00 [facility] Meningococcal 2007-12-29 Completed [facility] Polysaccharide 00:00:00 [place] [facility] (groups A, C, Y and Branc h W-135) conjugate vaccine (MCV4P) TDAP 2007-12-29 Completed [facility] 00:00:00 [facility] Meningococcal 2007-12-29 Completed [facility] Polysaccharide 00:00:00 [place] [facility] (groups A, C, Y and Branc h W-135) conjugate vaccine (MCV4P) TDAP 2007-12-29 Completed [facility] 00:00:00 [facility] Meningococcal 2007-12-29 Completed [facility] Polysaccharide 00:00:00 [place] [facility] (groups A, C, Y and Branc h W-135) conjugate vaccine (MCV4P) TDAP 2007-12-29 Completed [facility] 00:00:00 [facility] Meningococcal 2007-12-29 Completed [facility] Polysaccharide 00:00:00 [place] [facility] (groups A, C, Y and Branc h W-135) conjugate vaccine (MCV4P) TDAP 2007-12-29 Completed [facility] 00:00:00 [facility] Meningococcal 2007-12-29 Completed [facility] Polysaccharide 00:00:00 [place] [facility] (groups A, C, Y and Branc h W-135) conjugate vaccine (MCV4P) TDAP 2007-12-29 Completed [facility] 00:00:00 [facility] Meningococcal 2007-12-29 Completed [facility] Polysaccharide 00:00:00 [place] [facility] (groups A, C, Y and Branc h W-135) conjugate vaccine (MCV4P) TDAP 2007-12-29 Completed [facility] 00:00:00 [facility] Meningococcal 2007-12-29 Completed [facility] Polysaccharide 00:00:00 [place] [facility] (groups A, C, Y and Branc h W-135) conjugate vaccine (MCV4P) TDAP 2007-12-29 Completed [facility] 00:00:00 [facility] Meningococcal 2007-12-29 Completed [facility] of Polysaccharide 00:00:00 [place] [facility] (groups A, C, Y and Branc h W-135) conjugate vaccine (MCV4P) TDAP 2007-12-29 Completed [facility] 00:00:00 [facility] Meningococcal 2007-12-29 Completed [facility] Polysaccharide 00:00:00 [place] [facility] (groups A, C, Y and Branc h W-135) conjugate vaccine (MCV4P) TDAP 2007-12-29 Completed [facility] 00:00:00 [facility] Meningococcal 2007-12-29 Completed [facility] Polysaccharide 00:00:00 [place] [facility] (groups A, C, Y and Branc h W-135) conjugate vaccine (MCV4P) TDAP 2007-12-29 Completed [facility] 00:00:00 [facility] Meningococcal 2007-12-29 Completed [facility] Polysaccharide 00:00:00 [place] [facility] (groups A, C, Y and Branc h W-135) conjugate vaccine (MCV4P) TDAP 2007-12-29 Completed [facility] 00:00:00 [facility] Meningococcal 2007-12-29 Completed [facility] Polysaccharide 00:00:00 [place] [facility] (groups A, C, Y and Branc h W-135) conjugate vaccine (MCV4P) TDAP 2007-12-29 Completed [facility] 00:00:00 [facility] Meningococcal 2007-12-29 Completed [facility] Polysaccharide 00:00:00 [place] [facility] (groups A, C, Y and Branc h W-135) conjugate vaccine (MCV4P) TDAP 2007-12-29 Completed [facility] 00:00:00 [facility] Meningococcal 2007-12-29 Completed [facility] Polysaccharide 00:00:00 [place] [facility] (groups A, C, Y and Branc h W-135) conjugate vaccine (MCV4P) TDAP 2007-12-29 Completed [facility] 00:00:00 [facility] Meningococcal 2007-12-29 Completed [facility] Polysaccharide 00:00:00 [place] [facility] (groups A, C, Y and Branc h W-135) conjugate vaccine (MCV4P) TDAP 2007-12-29 Completed [facility] 00:00:00 [facility] Meningococcal 2007-12-29 Completed [facility] Polysaccharide 00:00:00 [place] [facility] (groups A, C, Y and Branc h W-135) conjugate vaccine (MCV4P) TDAP 2007-12-29 Completed [facility] 00:00:00 [facility] Meningococcal 2007-12-29 Completed [facility] Polysaccharide 00:00:00 [place] [facility] (groups A, C, Y and Branc h W-135) conjugate vaccine (MCV4P) TDAP 2007-12-29 Completed [facility] 00:00:00 [facility] DTaP, Unspecified 1998-01-03 Completed Univers [facility]y of Formulation 00:00:00 [facility] Hep B, Adol or Pedi 1998-01-03 Completed Unive rsity of Dosage 00:00:00 [facility] Poliovirus, Live, 1998-01-03 Completed Univers [facility] of Oral, Trivalent 00:00:00 [facility] DTaP, Unspecified 1998-01-03 Completed Univers ity of Formulation 00:00:00 [facility] Hep B, Adol or Pedi 1998-01-03 Completed Unive rsity of Dosage 00:00:00 [facility] Poliovirus, Live, 1998-01-03 Completed Univers [facility] of Oral, Trivalent 00:00:00 [facility] DTaP, Unspecified 1998-01-03 Completed [facility] ity of Formulation 00:00:00 [facility] Hep B, Adol or Pedi 1998-01-03 Completed Unive rsity of Dosage 00:00:00 [facility] Poliovirus, Live, 1998-01-03 Completed Univers it[facility] of Oral, Trivalent 00:00:00 [facility] DTaP, Unspecified 1998-01-03 Completed Univers ity of Formulation 00:00:00 [facility] Hep B, Adol or Pedi 1998-01-03 Completed Unive rsity of Dosage 00:00:00 [facility] Poliovirus, Live, 1998-01-03 Completed Univers [facility] of Oral, Trivalent 00:00:00 [facility] DTaP, Unspecified 1998-01-03 Completed Univers ity of Formulation 00:00:00 [facility] Hep B, Adol or Pedi 1998-01-03 Completed Unive rsity of Dosage 00:00:00 [facility] Poliovirus, Live, 1998-01-03 Completed Univers [facility] of Oral, Trivalent 00:00:00 [facility] DTaP, Unspecified 1998-01-03 Completed [facility] ity of Formulation 00:00:00 [facility] Hep B, Adol or Pedi 1998-01-03 Completed Unive rsity of Dosage 00:00:00 [facility] Poliovirus, Live, 1998-01-03 Completed Univers [facility] of Oral, Trivalent 00:00:00 [facility] DTaP, Unspecified 1998-01-03 Completed Univers ity of Formulation 00:00:00 [facility] Hep B, Adol or Pedi 1998-01-03 Completed Unive rsity of Dosage 00:00:00 [facility] Poliovirus, Live, 1998-01-03 Completed Univers [facility] of Oral, Trivalent 00:00:00 [facility] DTaP, Unspecified 1998-01-03 Completed [facility] ity of Formulation 00:00:00 [facility] Hep B, Adol or Pedi 1998-01-03 Completed Unive rsity of Dosage 00:00:00 [facility] Poliovirus, Live, 1998-01-03 Completed [facility] of Oral, Trivalent 00:00:00 [facility] DTaP, Unspecified 1998-01-03 Completed [facility] ity of Formulation 00:00:00 [facility] Hep B, Adol or Pedi 1998-01-03 Completed Unive rsity of Dosage 00:00:00 [facility] Poliovirus, Live, 1998-01-03 Completed [facility] of Oral, Trivalent 00:00:00 [facility] DTaP, Unspecified 1998-01-03 Completed Univers ity of Formulation 00:00:00 [facility] Hep B, Adol or Pedi 1998-01-03 Completed Unive rsity of Dosage 00:00:00 [facility] Poliovirus, Live, 1998-01-03 Completed Univers [facility] of Oral, Trivalent 00:00:00 [facility] DTaP, Unspecified 1998-01-03 Completed [facility] ity of Formulation 00:00:00 [facility] Hep B, Adol or Pedi 1998-01-03 Completed Unive rsity of Dosage 00:00:00 [facility] Poliovirus, Live, 1998-01-03 Completed [facility] of Oral, Trivalent 00:00:00 [facility] DTaP, Unspecified 1998-01-03 Completed [facility] ity of Formulation 00:00:00 [facility] Hep B, Adol or Pedi 1998-01-03 Completed Unive rsity of Dosage 00:00:00 [facility] Poliovirus, Live, 1998-01-03 Completed Univers [facility] of Oral, Trivalent 00:00:00 [facility] DTaP, Unspecified 1998-01-03 Completed [facility] ity of Formulation 00:00:00 [facility] Hep B, Adol or Pedi 1998-01-03 Completed Unive rsity of Dosage 00:00:00 [facility] Poliovirus, Live, 1998-01-03 Completed Univers ity of Oral, Trivalent 00:00:00 [facility] DTaP, Unspecified 1998-01-03 Completed Univers ity of Formulation 00:00:00 [facility] Hep B, Adol or Pedi 1998-01-03 Completed Unive rsity of Dosage 00:00:00 [facility] Poliovirus, Live, 1998-01-03 Completed Univers [facility] of Oral, Trivalent 00:00:00 [facility] DTaP, Unspecified 1998-01-03 Completed [facility] ity of Formulation 00:00:00 [facility] Hep B, Adol or Pedi 1998-01-03 Completed Unive rsity of Dosage 00:00:00 [facility] Poliovirus, Live, 1998-01-03 Completed Univers it[facility] of Oral, Trivalent 00:00:00 [facility] DTaP, Unspecified 1998-01-03 Completed Univers ity of Formulation 00:00:00 [facility] Hep B, Adol or Pedi 1998-01-03 Completed Unive rsity of Dosage 00:00:00 [facility] Poliovirus, Live, 1998-01-03 Completed Univers it[facility] of Oral, Trivalent 00:00:00 [facility] DTaP, Unspecified 1998-01-03 Completed [facility] ity of Formulation 00:00:00 [facility] Hep B, Adol or Pedi 1998-01-03 Completed Unive rsity of Dosage 00:00:00 [facility] Poliovirus, Live, 1998-01-03 Completed Univers [facility] of Oral, Trivalent 00:00:00 [facility] DTaP, Unspecified 1998-01-03 Completed [facility] of Formulation 00:00:00 [facility] Hep B, Adol or Pedi 1998-01-03 Completed Unive rsity of Dosage 00:00:00 [facility] Poliovirus, Live, 1998-01-03 Completed Univers [facility] of Oral, Trivalent 00:00:00 [facility] DTaP, Unspecified 1998-01-03 Completed [facility] it[facility] of Formulation 00:00:00 [facility] Hep B, Adol or Pedi 1998-01-03 Completed Unive rsity of Dosage 00:00:00 [facility] Poliovirus, Live, 1998-01-03 Completed Univers ity of Oral, Trivalent 00:00:00 [facility] DTaP, Unspecified 1998-01-03 Completed [facility] of Formulation 00:00:00 [facility] Hep B, Adol or Pedi 1998-01-03 Completed Unive rsity of Dosage 00:00:00 [facility] Poliovirus, Live, 1998-01-03 Completed [facility] of Oral, Trivalent 00:00:00 [facility] DTaP, Unspecified 1998-01-03 Completed Univers ity of Formulation 00:00:00 [facility] Hep B, Adol or Pedi 1998-01-03 Completed Unive rsity of Dosage 00:00:00 [facility] Poliovirus, Live, 1998-01-03 Completed Univers ity of Oral, Trivalent 00:00:00 [facility] DTaP, Unspecified 1998-01-03 Completed [facility] ity of Formulation 00:00:00 [facility] Hep B, Adol or Pedi 1998-01-03 Completed Unive rsity of Dosage 00:00:00 [facility] Poliovirus, Live, 1998-01-03 Completed Univers [facility] of Oral, Trivalent 00:00:00 [facility] DTaP, Unspecified 1998-01-03 Completed [facility] ity of Formulation 00:00:00 [facility] Hep B, Adol or Pedi 1998-01-03 Completed Unive rsity of Dosage 00:00:00 [facility] Poliovirus, Live, 1998-01-03 Completed Univers [facility] of Oral, Trivalent 00:00:00 [facility] DTaP, Unspecified 1998-01-03 Completed Univers ity of Formulation 00:00:00 [facility] Hep B, Adol or Pedi 1998-01-03 Completed Unive rsity of Dosage 00:00:00 [facility] Poliovirus, Live, 1998-01-03 Completed Univers ity of Oral, Trivalent 00:00:00 [facility] Hep B, Unspecified 1997-03-28 Completed Univer sity of Formulation 00:00:00 [facility] Hep B, Adol or Pedi 1997-03-28 Completed Unive rsity of Dosage 00:00:00 [facility] MMR 1997-03-28 Completed [facility] of 00:00:00 [facility] Hep B, Unspecified 1997-03-28 Completed Univer sity of Formulation 00:00:00 [facility] Hep B, Adol or Pedi 1997-03-28 Completed Unive rsity of Dosage 00:00:00 [facility] MMR 1997-03-28 Completed [facility] 00:00:00 [facility] Hep B, Unspecified 1997-03-28 Completed Univer sity of Formulation 00:00:00 [facility] Hep B, Adol or Pedi 1997-03-28 Completed Unive rsity of Dosage 00:00:00 [facility] MMR 1997-03-28 Completed [facility] 00:00:00 [facility] Hep B, Unspecified 1997-03-28 Completed Univer sity of Formulation 00:00:00 [facility] Hep B, Adol or Pedi 1997-03-28 Completed Unive rsity of Dosage 00:00:00 [facility] MMR 1997-03-28 Completed [facility] 00:00:00 [facility] Hep B, Unspecified 1997-03-28 Completed Univer sity of Formulation 00:00:00 [facility] Hep B, Adol or Pedi 1997-03-28 Completed Unive rsity of Dosage 00:00:00 [facility] MMR 1997-03-28 Completed [facility] 00:00:00 [facility] Hep B, Unspecified 1997-03-28 Completed Univer sity of Formulation 00:00:00 [facility] Hep B, Adol or Pedi 1997-03-28 Completed Unive rsity of Dosage 00:00:00 [facility] MMR 1997-03-28 Completed [facility] 00:00:00 [facility] Hep B, Unspecified 1997-03-28 Completed Univer sity of Formulation 00:00:00 [facility] Hep B, Adol or Pedi 1997-03-28 Completed Unive rsity of Dosage 00:00:00 [facility] MMR 1997-03-28 Completed [facility] of 00:00:00 [facility] Hep B, Unspecified 1997-03-28 Completed Univer sity of Formulation 00:00:00 [facility] Hep B, Adol or Pedi 1997-03-28 Completed Unive rsity of Dosage 00:00:00 [facility] MMR 1997-03-28 Completed [facility] 00:00:00 [facility] Hep B, Unspecified 1997-03-28 Completed Univer sity of Formulation 00:00:00 [facility] Hep B, Adol or Pedi 1997-03-28 Completed Unive rsity of Dosage 00:00:00 [facility] MMR 1997-03-28 Completed [facility] 00:00:00 [facility] Hep B, Unspecified 1997-03-28 Completed Univer sity of Formulation 00:00:00 [facility] Hep B, Adol or Pedi 1997-03-28 Completed Unive rsity of Dosage 00:00:00 [facility] MMR 1997-03-28 Completed [facility] 00:00:00 [facility] Hep B, Unspecified 1997-03-28 Completed Univer sity of Formulation 00:00:00 [facility] Hep B, Adol or Pedi 1997-03-28 Completed Unive rsity of Dosage 00:00:00 [facility] MMR 1997-03-28 Completed [facility] 00:00:00 [facility] Hep B, Unspecified 1997-03-28 Completed Univer sity of Formulation 00:00:00 [facility] Hep B, Adol or Pedi 1997-03-28 Completed Unive rsity of Dosage 00:00:00 [facility] MMR 1997-03-28 Completed [facility] 00:00:00 [facility] Hep B, Unspecified 1997-03-28 Completed Univer sity of Formulation 00:00:00 [facility] Hep B, Adol or Pedi 1997-03-28 Completed Unive rsity of Dosage 00:00:00 [facility] MMR 1997-03-28 Completed [facility] 00:00:00 [facility] Hep B, Unspecified 1997-03-28 Completed Univer sity of Formulation 00:00:00 [facility] Hep B, Adol or Pedi 1997-03-28 Completed Unive rsity of Dosage 00:00:00 [facility] MMR 1997-03-28 Completed [facility] 00:00:00 [facility] Hep B, Unspecified 1997-03-28 Completed Univer sity of Formulation 00:00:00 [facility] Hep B, Adol or Pedi 1997-03-28 Completed Unive rsity of Dosage 00:00:00 [facility] MMR 1997-03-28 Completed [facility] 00:00:00 [facility] Hep B, Unspecified 1997-03-28 Completed Univer sity of Formulation 00:00:00 [facility] Hep B, Adol or Pedi 1997-03-28 Completed Unive rsity of Dosage 00:00:00 [facility] MMR 1997-03-28 Completed [facility] 00:00:00 [facility] Hep B, Unspecified 1997-03-28 Completed Univer sity of Formulation 00:00:00 [facility] Hep B, Adol or Pedi 1997-03-28 Completed Unive rsity of Dosage 00:00:00 [facility] MMR 1997-03-28 Completed [facility] 00:00:00 [facility] Hep B, Unspecified 1997-03-28 Completed Univer sity of Formulation 00:00:00 [facility] Hep B, Adol or Pedi 1997-03-28 Completed [facility] Dosage 00:00:00 [facility] MMR 1997-03-28 Completed [facility] 00:00:00 [facility] Hep B, Unspecified 1997-03-28 Completed [facility] Formulation 00:00:00 [facility] Hep B, Adol or Pedi 1997-03-28 Completed [facility] Dosage 00:00:00 [facility] MMR 1997-03-28 Completed [facility] 00:00:00 [facility] Hep B, Unspecified 1997-03-28 Completed [facility]iver [facility] of Formulation 00:00:00 [facility] Hep B, Adol or Pedi 1997-03-28 Completed [facility]ive rs[facility] of Dosage 00:00:00 [facility] MMR 1997-03-28 Completed [facility] 00:00:00 [facility] Hep B, Unspecified 1997-03-28 Completed [facility]iver [facility] of Formulation 00:00:00 [facility] Hep B, Adol or Pedi 1997-03-28 Completed [facility] of Dosage 00:00:00 [facility] MMR 1997-03-28 Completed [facility] 00:00:00 [facility] Hep B, Unspecified 1997-03-28 Completed [facility] of Formulation 00:00:00 [facility] Hep B, Adol or Pedi 1997-03-28 Completed [facility] of Dosage 00:00:00 [facility] MMR 1997-03-28 Completed [facility] 00:00:00 [facility] Hep B, Unspecified 1997-03-28 Completed [facility] Formulation 00:00:00 [facility] Hep B, Adol or Pedi 1997-03-28 Completed [facility] Dosage 00:00:00 [facility] MMR 1997-03-28 Completed [facility] 00:00:00 [facility] Hep B, Unspecified 1997-03-28 Completed [facility]iver [facility] of Formulation 00:00:00 [facility] Hep B, Adol or Pedi 1997-03-28 Completed [facility] Dosage 00:00:00 [facility] 1997-03-28 Completed [facility] 00:00:00 [facility] DTP 1994-05-19 Completed [facility] 00:00:00 [facility] Hib-HbOC 1994-05-19 Completed [facility] 00:00:00 [facility] 1994-05-19 Completed [facility] 00:00:00 [facility] Poliovirus, Live, 1994-05-19 Completed Univers ity of Oral, Trivalent 00:00:[address] [facility] 1994-05-19 Completed [facility] 00:00:00 [facility] Hib-HbOC 1994-05-19 Completed [facility] 00:00:00 [facility] 1994-05-19 Completed [facility] 00:00:00 [facility] Poliovirus, Live, 1994-05-19 Completed Univers ity of Oral, Trivalent 00:00:[address] [facility] 1994-05-19 Completed [facility] 00:00:00 [facility] Hib-HbOC 1994-05-19 Completed [facility] 00:00:00 [facility] 1994-05-19 Completed [facility] 00:00:00 [facility] Poliovirus, Live, 1994-05-19 Completed Univers [facility] of Oral, Trivalent 00:00:[address] [facility] 1994-05-19 Completed [facility] 00:00:00 [facility] Hib-HbOC 1994-05-19 Completed [facility] 00:00:00 [facility] MMR 1994-05-19 Completed [facility] 00:00:00 [facility] Poliovirus, Live, 1994-05-19 Completed Univers ity of Oral, Trivalent 00:00:[address] [facility] 1994-05-19 Completed [facility] 00:00:00 [facility] Hib-HbOC 1994-05-19 Completed [facility] 00:00:00 [facility] MMR 1994-05-19 Completed [facility] 00:00:00 [facility] Poliovirus, Live, 1994-05-19 Completed Univers ity of Oral, Trivalent 00:00:[address] [facility] 1994-05-19 Completed [facility] 00:00:00 [facility] Hib-HbOC 1994-05-19 Completed [facility] 00:00:00 [facility] MMR 1994-05-19 Completed [facility] 00:00:00 [facility] Poliovirus, Live, 1994-05-19 Completed Univers [facility]y of Oral, Trivalent 00:00:00 [facility] DT 1994-05-19 Completed [facility] 00:00:00 [facility] Hib-HbOC 1994-05-19 Completed [facility] 00:00:00 [facility] MMR 1994-05-19 Completed [facility] 00:00:00 [facility] Poliovirus, Live, 1994-05-19 Completed Univers [facility] of Oral, Trivalent 00:00:[address] [facility] 1994-05-19 Completed [facility] 00:00:00 [facility] Hib-HbOC 1994-05-19 Completed [facility] 00:00:00 [facility] MMR 1994-05-19 Completed [facility] 00:00:00 [facility] Poliovirus, Live, 1994-05-19 Completed Univers [facility] of Oral, Trivalent 00:00:[address] [facility] 1994-05-19 Completed [facility] 00:00:00 [facility] Hib-HbOC 1994-05-19 Completed [facility] 00:00:00 [facility] MMR 1994-05-19 Completed [facility] 00:00:00 [facility] Poliovirus, Live, 1994-05-19 Completed [facility] ity of Oral, Trivalent 00:00:00 [facility] DT 1994-05-19 Completed [facility] 00:00:00 [facility] Hib-HbOC 1994-05-19 Completed [facility] 00:00:00 [facility] MMR 1994-05-19 Completed [facility] 00:00:00 [facility] Poliovirus, Live, 1994-05-19 Completed Univers ity of Oral, Trivalent 00:00:[address] [facility] 1994-05-19 Completed [facility] 00:00:00 [facility] Hib-HbOC 1994-05-19 Completed [facility] 00:00:00 [facility] MMR 1994-05-19 Completed [facility] 00:00:00 [facility] Poliovirus, Live, 1994-05-19 Completed [facility]y of Oral, Trivalent 00:00:00 [facility] DTP 1994-05-19 Completed [facility] 00:00:00 [facility] Hib-HbOC 1994-05-19 Completed [facility] 00:00:00 [facility] MMR 1994-05-19 Completed [facility] 00:00:00 [facility] Poliovirus, Live, 1994-05-19 Completed [facility]y of Oral, Trivalent 00:00:00 [facility] DTP 1994-05-19 Completed [facility] 00:00:00 [facility] Hib-HbOC 1994-05-19 Completed [facility] 00:00:00 [facility] MMR 1994-05-19 Completed [facility] 00:00:00 [facility] Poliovirus, Live, 1994-05-19 Completed Univers ity of Oral, Trivalent 00:00:[address] [facility] 1994-05-19 Completed [facility] 00:00:00 [facility] Hib-HbOC 1994-05-19 Completed [facility] 00:00:00 [facility] MMR 1994-05-19 Completed [facility] 00:00:00 [facility] Poliovirus, Live, 1994-05-19 Completed [facility] ity of Oral, Trivalent 00:00:00 [facility] DT 1994-05-19 Completed [facility] 00:00:00 [facility] Hib-HbOC 1994-05-19 Completed [facility] 00:00:00 [facility] MMR 1994-05-19 Completed [facility] 00:00:00 [facility] Poliovirus, Live, 1994-05-19 Completed Univers ity of Oral, Trivalent 00:00:00 [facility] DT 1994-05-19 Completed [facility] 00:00:00 [facility] Hib-HbOC 1994-05-19 Completed [facility] 00:00:00 [facility] MMR 1994-05-19 Completed [facility] 00:00:00 [facility] Poliovirus, Live, 1994-05-19 Completed [facility] ity of Oral, Trivalent 00:00:00 [facility] DT 1994-05-19 Completed [facility] 00:00:00 [facility] Hib-HbOC 1994-05-19 Completed [facility] 00:00:00 [facility] MMR 1994-05-19 Completed [facility] 00:00:00 [facility] Poliovirus, Live, 1994-05-19 Completed [facility] ity of Oral, Trivalent 00:00:00 [facility] DT 1994-05-19 Completed [facility] 00:00:00 [facility] Hib-HbOC 1994-05-19 Completed [facility] 00:00:00 [facility] MMR 1994-05-19 Completed [facility] 00:00:00 [facility] Poliovirus, Live, 1994-05-19 Completed [facility] it[facility] of Oral, Trivalent 00:00:00 [facility] DT 1994-05-19 Completed [facility] 00:00:00 [facility] Hib-HbOC 1994-05-19 Completed [facility] 00:00:00 [facility] MMR 1994-05-19 Completed [facility] 00:00:00 [facility] Poliovirus, Live, 1994-05-19 Completed Univers ity of Oral, Trivalent 00:00:[address] [facility] 1994-05-19 Completed [facility] 00:00:00 [facility] Hib-HbOC 1994-05-19 Completed [facility] 00:00:00 [facility] MMR 1994-05-19 Completed [facility] 00:00:00 [facility] Poliovirus, Live, 1994-05-19 Completed [facility] ity of Oral, Trivalent 00:00:[address] [facility] 1994-05-19 Completed [facility] 00:00:00 [facility] Hib-HbOC 1994-05-19 Completed [facility] 00:00:00 [facility] MMR 1994-05-19 Completed [facility] 00:00:00 [facility] Poliovirus, Live, 1994-05-19 Completed [facility]y of Oral, Trivalent 00:00:00 [facility] DT 1994-05-19 Completed [facility] 00:00:00 [facility] Hib-HbOC 1994-05-19 Completed [facility] 00:00:00 [facility] MMR 1994-05-19 Completed [facility] 00:00:00 [facility] Poliovirus, Live, 1994-05-19 Completed Univers it[facility] of Oral, Trivalent 00:00:[address] [facility] 1994-05-19 Completed [facility] 00:00:00 [facility] Hib-HbOC 1994-05-19 Completed [facility] 00:00:00 [facility] MMR 1994-05-19 Completed [facility] 00:00:00 [facility] Poliovirus, Live, 1994-05-19 Completed [facility] it[facility] of Oral, Trivalent 00:00:00 [facility] DTP 1994-05-19 Completed [facility] 00:00:00 [facility] Hib-HbOC 1994-05-19 Completed [facility] 00:00:00 [facility] MMR 1994-05-19 Completed [facility] 00:00:00 [facility] Poliovirus, Live, 1994-05-19 Completed Univers it[facility] of Oral, Trivalent 00:00:00 [facility] Heamophilus Influenza 1994-05-09 Completed Uni versity of B 00:00:00 [facility] Heamophilus Influenza 1994-05-09 Completed Uni versity of B 00:00:00 [facility] Heamophilus Influenza 1994-05-09 Completed Uni versity of B 00:00:00 [facility] Heamophilus Influenza 1994-05-09 Completed Uni versity of B 00:00:00 [facility] Heamophilus Influenza 1994-05-09 Completed Uni versity of B 00:00:00 [facility] Heamophilus Influenza 1994-05-09 Completed Uni versity of B 00:00:00 [facility] Heamophilus Influenza 1994-05-09 Completed Uni versity of B 00:00:00 [facility] Heamophilus Influenza 1994-05-09 Completed Uni versity of B 00:00:00 [facility] Heamophilus Influenza 1994-05-09 Completed Uni versity of B 00:00:00 [facility] Heamophilus Influenza 1994-05-09 Completed Uni versity of B 00:00:00 [facility] Heamophilus Influenza 1994-05-09 Completed Uni versity of B 00:00:00 [facility] Heamophilus Influenza 1994-05-09 Completed Uni versity of B 00:00:00 [facility] Heamophilus Influenza 1994-05-09 Completed Uni versity of B 00:00:00 [facility] Heamophilus Influenza 1994-05-09 Completed Uni versity of B 00:00:00 [facility] Heamophilus Influenza 1994-05-09 Completed Uni versity of B 00:00:00 [facility] Heamophilus Influenza 1994-05-09 Completed Uni vers[facility] of B 00:00:00 [facility] Heamophilus Influenza 1994-05-09 Completed Uni vers[facility] of B 00:00:00 [facility] Heamophilus Influenza 1994-05-09 Completed Uni versity of B 00:00:00 [facility] Heamophilus Influenza 1994-05-09 Completed Uni versity of B 00:00:00 [facility] Heamophilus Influenza 1994-05-09 Completed Uni versity of B 00:00:00 [facility] Heamophilus Influenza 1994-05-09 Completed Uni versity of B 00:00:00 [facility] Heamophilus Influenza 1994-05-09 Completed Uni versity of B 00:00:00 [facility] Heamophilus Influenza 1994-05-09 Completed Uni versity of B 00:00:00 [facility] Heamophilus Influenza 1994-05-09 Completed Uni versity of B 00:00:00 [facility] Hep B, Unspecified 1993-04-29 Completed Univer [facility] of Formulation 00:00:00 [facility] Hep B, Adol or Pedi 1993-04-29 Completed Unive rs[facility] of Dosage 00:00:00 [facility] Hep B, Unspecified 1993-04-29 Completed Univer [facility] of Formulation 00:00:00 [facility] Hep B, Adol or Pedi 1993-04-29 Completed [facility]ive rs[facility] of Dosage 00:00:00 [facility] Hep B, Unspecified 1993-04-29 Completed [facility] of Formulation 00:00:00 [facility] Hep B, Adol or Pedi 1993-04-29 Completed Unive rs[facility] of Dosage 00:00:00 [facility] Hep B, Unspecified 1993-04-29 Completed [facility] of Formulation 00:00:00 [facility] Hep B, Adol or Pedi 1993-04-29 Completed Unive rs[facility] of Dosage 00:00:00 [facility] Hep B, Unspecified 1993-04-29 Completed [facility]iver [facility]ity of Formulation 00:00:00 [facility] Hep B, Adol or Pedi 1993-04-29 Completed [facility] rs[facility] of Dosage 00:00:00 [facility] Hep B, Unspecified 1993-04-29 Completed [facility] of Formulation 00:00:00 [facility] Hep B, Adol or Pedi 1993-04-29 Completed [facility] rs[facility] of Dosage 00:00:00 [facility] Hep B, Unspecified 1993-04-29 Completed [...] 1993-04-29 Completed [facility] of Dosage 00:00:00 [facility] Hep B, Unspecified 1993-04-29 Completed [facility] of Formulation 00:00:00 [facility] Hep B, Adol or Pedi 1993-04-29 Completed Unive rsity of Dosage 00:00:00 [facility] Hep B, Unspecified 1993-04-29 Completed Univer sity of Formulation 00:00:00 [facility] Hep B, Adol or Pedi 1993-04-29 Completed Unive rsity of Dosage 00:00:00 [facility] Hep B, Unspecified 1993-04-29 Completed Univer [facility]ity of Formulation 00:00:00 [facility] Hep B, Adol or Pedi 1993-04-29 Completed Unive rsity of Dosage 00:00:00 [facility] Hep B, Unspecified 1993-04-29 Completed Univer sity of Formulation 00:00:00 [facility] Hep B, Adol or Pedi 1993-04-29 Completed Unive rsity of Dosage 00:00:00 [facility] Hep B, Unspecified 1993-04-29 Completed Univer [facility] of Formulation 00:00:00 [facility] Hep B, Adol or Pedi 1993-04-29 Completed Unive rsity of Dosage 00:00:00 [facility] Hep B, Unspecified 1993-04-29 Completed Univer [facility] of Formulation 00:00:00 [facility] Hep B, Adol or Pedi 1993-04-29 Completed Unive rs[facility] of Dosage 00:00:00 [facility] Hep B, Unspecified 1993-04-29 Completed [facility] of Formulation 00:00:00 [facility] Hep B, Adol or Pedi 1993-04-29 Completed [facility] rs[facility] of Dosage 00:00:00 [facility] DTP 1992 Completed [facility] 00:00:00 [facility] Heamophilus Influenza 1992 Completed Uni vers[facility] of B 00:00:00 [facility] Hib-HbOC 1992 Completed [facility] 00:00:00 [facility] DTP 1992 Completed [facility] 00:00:00 [facility] Heamophilus Influenza 1992 Completed Uni vers[facility] of B 00:00:00 [facility] Hib-HbOC 1992 Completed [facility] 00:00:00 [facility] DTP 1992 Completed [facility] 00:00:00 [facility] Heamophilus Influenza 1992 Completed Uni vers[facility] of B 00:00:00 [facility] Hib-HbOC 1992 Completed [facility] 00:00:00 [facility] DTP 1992 Completed [facility] 00:00:00 [facility] Heamophilus Influenza 1992 Completed Uni vers[facility] of B 00:00:00 [facility] Hib-HbOC 1992 Completed [facility] 00:00:00 [facility] DTP 1992 Completed [facility] 00:00:00 [facility] Heamophilus Influenza 1992 Completed Uni vers[facility] of B 00:00:00 [facility] Hib-HbOC 1992 Completed [facility] 00:00:00 [facility] DTP 1992 Completed [facility] 00:00:00 [facility] Heamophilus Influenza 1992 Completed [facility] vers[facility] of B 00:00:00 [facility] Hib-HbOC 1992 Completed [facility] 00:00:00 [facility] DTP 1992 Completed [facility] 00:00:00 [facility] Heamophilus Influenza 1992 Completed Uni vers[facility] of B 00:00:00 [facility] Hib-HbOC 1992 Completed [facility] 00:00:00 [facility] DTP 1992 Completed [facility] 00:00:00 [facility] Heamophilus Influenza 1992 Completed [facility] vers[facility] of B 00:00:00 [facility] Hib-HbOC 1992 Completed [facility] 00:00:00 [facility] DTP 1992 Completed [facility] 00:00:00 [facility] Heamophilus Influenza 1992 Completed Uni vers[facility] of B 00:00:00 [facility] Hib-HbOC 1992 Completed [facility] 00:00:00 [facility] DTP 1992 Completed [facility] 00:00:00 [facility] Heamophilus Influenza 1992 Completed [facility] vers[facility] B 00:00:00 [facility] Hib-HbOC 1992 Completed [facility] 00:00:00 [facility] DTP 1992 Completed [facility] 00:00:00 [facility] Heamophilus Influenza 1992 Completed [facility] vers[facility] of B 00:00:00 [facility] Hib-HbOC 1992 Completed [facility] 00:00:00 [facility] DTP 1992 Completed [facility] 00:00:00 [facility] Heamophilus Influenza 1992 Completed Uni vers[facility] of B 00:00:00 [facility] Hib-HbOC 1992 Completed [facility] 00:00:00 [facility] DTP 1992 Completed [facility] 00:00:00 [facility] Heamophilus Influenza 1992 Completed Uni vers[facility] of B 00:00:00 [facility] Hib-HbOC 1992 Completed [facility] 00:00:00 [facility] DTP 1992 Completed [facility] 00:00:00 [facility] Heamophilus Influenza 1992 Completed [facility] vers[facility] of B 00:00:00 [facility] Hib-HbOC 1992 Completed [facility] 00:00:00 [facility] DTP 1992 Completed [facility] 00:00:00 [facility] Heamophilus Influenza 1992 Completed [facility] vers[facility] B 00:00:00 [facility] Hib-HbOC 1992 Completed [facility] 00:00:00 [facility] DTP 1992 Completed [facility] 00:00:00 [facility] Heamophilus Influenza 1992 Completed [facility] vers[facility] B 00:00:00 [facility] Hib-HbOC 1992 Completed [facility] 00:00:00 [facility] DTP 1992 Completed [facility] 00:00:00 [facility] Heamophilus Influenza 1992 Completed [facility] vers[facility] B 00:00:00 [facility] Hib-HbOC 1992 Completed [facility] 00:00:00 [facility] DTP 1992 Completed [facility] 00:00:00 [facility] Heamophilus Influenza 1992 Completed [facility] vers[facility] B 00:00:00 [facility] Hib-HbOC 1992 Completed [facility] 00:00:00 [facility] DTP 1992 Completed [facility] 00:00:00 [facility] Heamophilus Influenza 1992 Completed [facility] vers[facility] B 00:00:00 [facility] Hib-HbOC 1992 Completed [facility] 00:00:00 [facility] DTP 1992 Completed [facility] 00:00:00 [facility] Heamophilus Influenza 1992 Completed [facility] vers[facility] B 00:00:00 [facility] Hib-HbOC 1992 Completed [facility] 00:00:00 [facility] DTP 1992 Completed [facility] 00:00:00 [facility] Heamophilus Influenza 1992 Completed [facility] vers[facility] of B 00:00:00 [facility] Hib-HbOC 1992 Completed [facility] 00:00:00 [facility] DTP 1992 Completed [facility] 00:00:00 [facility] Heamophilus Influenza 1992 Completed [facility] vers[facility] B 00:00:00 [facility] Hib-HbOC 1992 Completed [facility] 00:00:00 [facility] DTP 1992 Completed [facility] 00:00:00 [facility] Heamophilus Influenza 1992 Completed [facility] vers[facility] B 00:00:00 [facility] Hib-HbOC 1992 Completed [facility] 00:00:00 [facility] DTP 1992 Completed [facility] 00:00:00 [facility] Heamophilus Influenza 1992 Completed [facility] vers[facility] B 00:00:00 [facility] Hib-HbOC 1992 Completed [facility] 00:00:00 [facility] DTP 1992 Completed [facility] 00:00:00 [facility] Heamophilus Influenza 1992 Completed [facility] B 00:00:00 [facility] Hib-HbOC 1992 Completed [facility] 00:00:00 [facility] Poliovirus, Live, 1992 Completed Univers [facility] of Oral, Trivalent 00:00:00 [facility] DTP 1992 Completed [facility] 00:00:00 [facility] Heamophilus Influenza 1992 Completed [facility] B 00:00:00 [facility] Hib-HbOC 1992 Completed [facility] 00:00:00 [facility] Poliovirus, Live, 1992 Completed [facility] of Oral, Trivalent 00:00:[address] [facility] 1992 Completed [facility] 00:00:00 [facility] Heamophilus Influenza 1992 Completed [facility] B 00:00:00 [facility] Hib-HbOC 1992 Completed [facility] 00:00:00 [facility] Poliovirus, Live, 1992 Completed [facility] of Oral, Trivalent 00:00:[address] [facility] 1992 Completed [facility] 00:00:00 [facility] Heamophilus Influenza 1992 Completed [facility] B 00:00:00 [facility] Hib-HbOC 1992 Completed [facility] 00:00:00 [facility] Poliovirus, Live, 1992 Completed [facility] of Oral, Trivalent 00:00:[address] [facility] 1992 Completed [facility] 00:00:00 [facility] Heamophilus Influenza 1992 Completed [facility] B 00:00:00 [facility] Hib-HbOC 1992 Completed [facility] 00:00:00 [facility] Poliovirus, Live, 1992 Completed [facility] of Oral, Trivalent 00:00:[address] [facility] 1992 Completed [facility] of 00:00:00 [facility] Heamophilus Influenza 1992 Completed Uni versity of B 00:00:00 [facility] Hib-HbOC 1992 Completed [facility] 00:00:00 [facility] Poliovirus, Live, 1992 Completed [facility] of Oral, Trivalent 00:00:[address] [facility] 1992 Completed [facility] of 00:00:00 [facility] Heamophilus Influenza 1992 Completed Uni versity of B 00:00:00 [facility] Hib-HbOC 1992 Completed [facility] of 00:00:00 [facility] Poliovirus, Live, 1992 Completed [facility] of Oral, Trivalent 00:00:[address] [facility] 1992 Completed [facility] 00:00:00 [facility] Heamophilus Influenza 1992 Completed Uni versity of B 00:00:00 [facility] Hib-HbOC 1992 Completed [facility] of 00:00:00 [facility] Poliovirus, Live, 1992 Completed [facility] of Oral, Trivalent 00:00:[address] [facility] 1992 Completed [facility] 00:00:00 [facility] Heamophilus Influenza 1992 Completed Uni versity of B 00:00:00 [facility] Hib-HbOC 1992 Completed [facility] 00:00:00 [facility] Poliovirus, Live, 1992 Completed [facility] of Oral, Trivalent 00:00:[address] [facility] 1992 Completed [facility] 00:00:00 [facility] Heamophilus Influenza 1992 Completed Uni versity of B 00:00:00 [facility] Hib-HbOC 1992 Completed [facility] of 00:00:00 [facility] Poliovirus, Live, 1992 Completed [facility] it[facility] of Oral, Trivalent 00:00:[address] [facility] 1992 Completed [facility] 00:00:00 [facility] Heamophilus Influenza 1992 Completed Uni versity of B 00:00:00 [facility] Hib-HbOC 1992 Completed [facility] 00:00:00 [facility] Poliovirus, Live, 1992 Completed [facility] it[facility] of Oral, Trivalent 00:00:[address] [facility] 1992 Completed [facility] 00:00:00 [facility] Heamophilus Influenza 1992 Completed Uni versity of B 00:00:00 [facility] Hib-HbOC 1992 Completed [facility] 00:00:00 [facility] Poliovirus, Live, 1992 Completed [facility] of Oral, Trivalent 00:00:[address] [facility] 1992 Completed [facility] 00:00:00 [facility] Heamophilus Influenza 1992 Completed Uni versity of B 00:00:00 [facility] Hib-HbOC 1992 Completed [facility] 00:00:00 [facility] Poliovirus, Live, 1992 Completed [facility] of Oral, Trivalent 00:00:[address] [facility] 1992 Completed [facility] 00:00:00 [facility] Heamophilus Influenza 1992 Completed Uni versity of B 00:00:00 [facility] Hib-HbOC 1992 Completed [facility] 00:00:00 [facility] Poliovirus, Live, 1992 Completed [facility] of Oral, Trivalent 00:00:[address] [facility] 1992 Completed [facility] 00:00:00 [facility] Heamophilus Influenza 1992 Completed Uni versity of B 00:00:00 [facility] Hib-HbOC 1992 Completed [facility] 00:00:00 [facility] Poliovirus, Live, 1992 Completed [facility] of Oral, Trivalent 00:00:[address] [facility] 1992 Completed [facility] 00:00:00 [facility] Heamophilus Influenza 1992 Completed Uni versity of B 00:00:00 [facility] Hib-HbOC 1992 Completed [facility] 00:00:00 [facility] Poliovirus, Live, 1992 Completed [facility] of Oral, Trivalent 00:00:[address] [facility] 1992 Completed [facility] 00:00:00 [facility] Heamophilus Influenza 1992 Completed Uni versity of B 00:00:00 [facility] Hib-HbOC 1992 Completed [facility] 00:00:00 [facility] Poliovirus, Live, 1992 Completed [facility] of Oral, Trivalent 00:00:[address] [facility] 1992 Completed [facility] 00:00:00 [facility] Heamophilus Influenza 1992 Completed Uni versity of B 00:00:00 [facility] Hib-HbOC 1992 Completed [facility] of 00:00:00 [facility] Poliovirus, Live, 1992 Completed [facility] of Oral, Trivalent 00:00:00 [facility] DTP 1992 Completed [facility] of 00:00:00 [facility] Heamophilus Influenza 1992 Completed Uni versity of B 00:00:00 [facility] Hib-HbOC 1992 Completed [facility] of 00:00:00 [facility] Poliovirus, Live, 1992 Completed [facility] of Oral, Trivalent 00:00:00 [facility] DTP 1992 Completed [facility] 00:00:00 [facility] Heamophilus Influenza 1992 Completed Uni versity of B 00:00:00 [facility] Hib-HbOC 1992 Completed [facility] 00:00:00 [facility] Poliovirus, Live, 1992 Completed [facility] Oral, Trivalent 00:00:00 [facility] DTP 1992 Completed [facility] of 00:00:00 [facility] Heamophilus Influenza 1992 Completed Uni versity of B 00:00:00 [facility] Hib-HbOC 1992 Completed [facility] of 00:00:00 [facility] Poliovirus, Live, 1992 Completed [facility] of Oral, Trivalent 00:00:00 [facility] DTP 1992 Completed [facility] 00:00:00 [facility] Heamophilus Influenza 1992 Completed Uni versity of B 00:00:00 [facility] Hib-HbOC 1992 Completed [facility] of 00:00:00 [facility] Poliovirus, Live, 1992 Completed [facility] of Oral, Trivalent 00:00:00 [facility] DTP 1992 Completed [facility] 00:00:00 [facility] Heamophilus Influenza 1992 Completed Uni versity of B 00:00:00 [facility] Hib-HbOC 1992 Completed [facility] of 00:00:00 [facility] Poliovirus, Live, 1992 Completed [facility] of Oral, Trivalent 00:00:00 [facility] DTP 1992 Completed [facility] 00:00:00 [facility] Heamophilus Influenza 1992 Completed Uni versity of B 00:00:00 [facility] Hib-HbOC 1992 Completed [facility] of 00:00:00 [facility] Poliovirus, Live, 1992 Completed [facility] Oral, Trivalent 00:00:[address] [facility] 1992 Completed [facility] 00:00:00 [facility] Heamophilus Influenza 1992 Completed Uni versity of B 00:00:00 [facility] Hib-HbOC 1992 Completed [facility] 00:00:00 [facility] Poliovirus, Live, 1992 Completed [facility] Oral, Trivalent 00:00:[address] [facility] 1992 Completed [facility] 00:00:00 [facility] Heamophilus Influenza 1992 Completed Uni versity of B 00:00:00 [facility] Hib-HbOC 1992 Completed [facility] 00:00:00 [facility] Poliovirus, Live, 1992 Completed [facility] Oral, Trivalent 00:00:[address] [facility] 1992 Completed [facility] 00:00:00 [facility] Heamophilus Influenza 1992 Completed Uni versity of B 00:00:00 [facility] Hib-HbOC 1992 Completed [facility] 00:00:00 [facility] Poliovirus, Live, 1992 Completed [facility] of Oral, Trivalent 00:00:[address] [facility] 1992 Completed [facility] 00:00:00 [facility] Heamophilus Influenza 1992 Completed Uni versity of B 00:00:00 [facility] Hib-HbOC 1992 Completed [facility] 00:00:00 [facility] Poliovirus, Live, 1992 Completed [facility] Oral, Trivalent 00:00:[address] [facility] 1992 Completed [facility] 00:00:00 [facility] Heamophilus Influenza 1992 Completed Uni versity of B 00:00:00 [facility] Hib-HbOC 1992 Completed [facility] 00:00:00 [facility] Poliovirus, Live, 1992 Completed [facility] Oral, Trivalent 00:00:[address] [facility] 1992 Completed [facility] 00:00:00 [facility] Heamophilus Influenza 1992 Completed [facility] versity of B 00:00:00 [facility] Hib-HbOC 1992 Completed [facility] 00:00:00 [facility] Poliovirus, Live, 1992 Completed [facility] Oral, Trivalent 00:00:00 [facility] DT 1992 Completed [facility] of 00:00:00 [facility] Heamophilus Influenza 1992 Completed Uni versity of B 00:00:00 [facility] Hib-HbOC 1992 Completed [facility] 00:00:00 [facility] Poliovirus, Live, 1992 Completed [facility] Oral, Trivalent 00:00:[address] [facility] 1992 Completed [facility] 00:00:00 [facility] Heamophilus Influenza 1992 Completed [facility] versity of B 00:00:00 [facility] Hib-HbOC 1992 Completed [facility] 00:00:00 [facility] Poliovirus, Live, 1992 Completed [facility] Oral, Trivalent 00:00:[address] [facility] 1992 Completed [facility] 00:00:00 [facility] Heamophilus Influenza 1992 Completed Uni versity of B 00:00:00 [facility] Hib-HbOC 1992 Completed [facility] 00:00:00 [facility] Poliovirus, Live, 1992 Completed [facility] Oral, Trivalent 00:00:[address] [facility] 1992 Completed [facility] 00:00:00 [facility] Heamophilus Influenza 1992 Completed Uni versity of B 00:00:00 [facility] Hib-HbOC 1992 Completed [facility] 00:00:00 [facility] Poliovirus, Live, 1992 Completed [facility] Oral, Trivalent 00:00:[address] [facility] 1992 Completed [facility] 00:00:00 [facility] Heamophilus Influenza 1992 Completed Uni versity of B 00:00:00 [facility] Hib-HbOC 1992 Completed [facility] 00:00:00 [facility] Poliovirus, Live, 1992 Completed [facility] Oral, Trivalent 00:00:[address] [facility] 1992 Completed [facility] 00:00:00 [facility] Heamophilus Influenza 1992 Completed Uni versity [facility] B 00:00:00 [facility] Hib-HbOC 1992 Completed [facility] 00:00:00 [facility] Poliovirus, Live, 1992 Completed [facility] Oral, Trivalent 00:00:[address] [facility] 1992 Completed [facility] 00:00:00 [facility] Heamophilus Influenza 1992 Completed [facility] vers[facility] B 00:00:00 [facility] Hib-HbOC 1992 Completed [facility] 00:00:00 [facility] Poliovirus, Live, 1992 Completed [facility] Oral, Trivalent 00:00:[address] [facility] 1992 Completed [facility] 00:00:00 [facility] Heamophilus Influenza 1992 Completed [facility] vers[facility] of B 00:00:00 [facility] Hib-HbOC 1992 Completed [facility] 00:00:00 [facility] Poliovirus, Live, 1992 Completed [facility] of Oral, Trivalent 00:00:[address] [facility] 1992 Completed [facility] 00:00:00 [facility] Heamophilus Influenza 1992 Completed [facility] vers[facility] of B 00:00:00 [facility] Hib-HbOC 1992 Completed [facility] 00:00:00 [facility] Poliovirus, Live, 1992 Completed [facility] Oral, Trivalent 00:00:[address] [facility] 1992 Completed [facility] 00:00:00 [facility] Heamophilus Influenza 1992 Completed Uni vers[facility] B 00:00:00 [facility] Hib-HbOC 1992 Completed [facility] 00:00:00 [facility] Poliovirus, Live, 1992 Completed [facility] Oral, Trivalent 00:00:[address] [facility] 1992 Completed [facility] 00:00:00 [facility] Heamophilus Influenza 1992 Completed [facility] vers[facility] B 00:00:00 [facility] Hib-HbOC 1992 Completed [facility] 00:00:00 [facility] Poliovirus, Live, 1992 Completed [facility] Oral, Trivalent 00:00:[address] [facility] 1992 Completed [facility] 00:00:00 [facility] Heamophilus Influenza 1992 Completed [facility] versity [facility] B 00:00:00 [facility] Hib-HbOC 1992 Completed [facility] 00:00:00 [facility] Poliovirus, Live, 1992 Completed [facility] Oral, Trivalent 00:00:[address] [facility] 1992 Completed [facility] 00:00:00 [facility] Heamophilus Influenza 1992 Completed [facility] vers[facility] B 00:00:00 [facility] Hib-HbOC 1992 Completed [facility] 00:00:00 [facility] Poliovirus, Live, 1992 Completed [facility] of Oral, Trivalent 00:00:[address] [facility] 1992 Completed [facility] 00:00:00 [facility] Heamophilus Influenza 1992 Completed [facility] versity of B 00:00:00 [facility] Hib-HbOC 1992 Completed [facility] of 00:00:00 [facility] Poliovirus, Live, 1992 Completed [facility] of Oral, Trivalent 00:00:[address] [facility] 1992 Completed [facility] 00:00:00 [facility] Heamophilus Influenza 1992 Completed Uni versity of B 00:00:00 [facility] Hib-HbOC 1992 Completed [facility] 00:00:00 [facility] Poliovirus, Live, 1992 Completed [facility] Oral, Trivalent 00:00:[address] [facility] 1992 Completed [facility] 00:00:00 [facility] Heamophilus Influenza 1992 Completed Uni versity of B 00:00:00 [facility] Hib-HbOC 1992 Completed [facility] of 00:00:00 [facility] Poliovirus, Live, 1992 Completed [facility] of Oral, Trivalent 00:00:00 [facility] DTP 1992 Completed [facility] of 00:00:00 [facility] Heamophilus Influenza 1992 Completed Uni versity of B 00:00:00 [facility] Hib-HbOC 1992 Completed [facility] 00:00:00 [facility] Poliovirus, Live, 1992 Completed [facility] of Oral, Trivalent 00:00:00 [facility] DTP 1992 Completed [facility] 00:00:00 [facility] Heamophilus Influenza 1992 Completed Uni versity of B 00:00:00 [facility] Hib-HbOC 1992 Completed [facility] 00:00:00 [facility] Poliovirus, Live, 1992 Completed [facility] of Oral, Trivalent 00:00:00 [facility] Vital Signs Vital Name Observation Time Observation Value Comments Source Systolic blood 2023-01-21 156 mm[Hg] [facility] of pressure 23:13:33 [facility] Diastolic blood 2023-01-21 100 mm[Hg] University o f pressure 23:13:33 [facility] Heart rate 2023-01-21 88 /min [facility] of 23:13:33 [facility] Respiratory rate 2023-01-21 20 /min [facility] of 23:13:33 [facility] Oxygen saturation 2023-01-21 100 /min [facility] in Arterial blood 23:13:33 [facility] by Pulse oximetry [place] Body height 2023-01-21 160 cm University of 18:44:00 [facility] Body weight 2023-01-21 69.854 kg University of 18:44:00 [facility] BMI 2023-01-21 27.28 kg/m2 University of 18:44:00 [facility] Body temperature 2023-01-21 37.11 Alisha University of 18:43:00 [facility] Systolic blood 2023-01-15 121 mm[Hg] University of pressure 18:01:00 [facility] Diastolic blood 2023-01-15 81 mm[Hg] University o f pressure 18:01:00 [facility] Heart rate 2023-01-15 83 /min [facility] of 18:01:00 [facility] Respiratory rate 2023-01-15 16 /min [facility] of 18:01:00 [facility] Oxygen saturation 2023-01-15 97 /min [facility] of in Arterial blood 18:01:00 [facility] by Pulse oximetry Branch Body temperature 2023-01-15 36.89 Alisha University of 14:55:07 [facility] Body weight 2023-01-15 68.04 kg University of 13:47:00 [facility] BMI 2023-01-15 26.57 kg/m2 University of 13:47:00 [facility] Systolic blood 2023-01-15 131 mm[Hg] [facility] of pressure 10:13:00 [facility] Diastolic blood 2023-01-15 83 mm[Hg] University o f pressure 10:13:00 [facility] Heart rate 2023-01-15 104 /min [facility] of 10:13:00 [facility] Body temperature 2023-01-15 36.94 Alisha University of 10:13:00 [facility] Respiratory rate 2023-01-15 21 /min [facility] of 10:13:00 [facility] Body height 2023-01-15 160 cm University of 10:13:00 [facility] Body weight 2023-01-15 68.04 kg University of 10:13:00 [facility] BMI 2023-01-15 26.57 kg/m2 University of 10:13:00 [facility] Oxygen saturation 2023-01-15 100 /min [facility] of in Arterial blood 10:13:00 [facility] by Pulse oximetry [facility] Systolic blood 2022-12-31 128 mm[Hg] [facility] of pressure 05:09:00 [facility] Diastolic blood 2022-12-31 79 mm[Hg] University o f pressure 05:09:00 [facility] Heart rate 2022-12-31 71 /min [facility] 05:09:00 [facility] Body temperature 2022-12-31 36.78 Alisha [facility] 05:09:00 [facility] Respiratory rate 2022-12-31 16 /min [facility] of 05:09:00 [facility] Body height 2022-12-31 160 cm University of 05:09:00 [facility] Body weight 2022-12-31 67.586 kg University of 05:09:00 [facility] BMI 2022-12-31 26.39 kg/m2 University of 05:09:00 [facility] Oxygen saturation 2022-12-31 100 /min [facility] of in Arterial blood 05:09:00 [facility] by Pulse oximetry [facility] Systolic blood 2022-12-22 132 mm[Hg] University of pressure 13:18:00 [facility] Diastolic blood 2022-12-22 92 mm[Hg] University o f pressure 13:18:00 [facility] Heart rate 2022-12-22 78 /min [facility] of 13:18:00 [facility] Respiratory rate 2022-12-22 18 /min [facility] of 13:18:00 [facility] Body height 2022-12-22 160 cm University of 13:18:00 [facility] Body weight 2022-12-22 69.4 kg University of 13:18: [facility] BMI 2022-12-22 27.10 kg/m2 University of 13:18:00 [facility] Systolic blood 2022-12-19 102 mm[Hg] [facility] of pressure 10:00:00 [facility] Diastolic blood 2022-12-19 60 mm[Hg] University o f pressure 10:00:00 [facility] Heart rate 2022-12-19 85 /min [facility] of 10:00:00 [facility] Respiratory rate 2022-12-19 13 /min [facility] of 10:00:00 [facility] Oxygen saturation 2022-12-19 96 /min [place] of in Arterial blood 10:00:00 [facility] by Pulse oximetry [place] Body temperature 2022-12-19 36.28 Alisha University of 07:30:00 [facility] Body height 2022-12-19 160 cm University of 07:30:00 [facility] Body weight 2022-12-19 67.132 kg University of 07:30:00 [facility] BMI 2022-12-19 26.22 kg/m2 University of 07:30:00 [facility] Systolic blood 2022-12-15 125 mm[Hg] [facility] of pressure 15:48:00 [facility] Diastolic blood 2022-12-15 77 mm[Hg] University o f pressure 15:48:00 [facility] Heart rate 2022-12-15 75 /min [facility] of 15:48:00 [facility] Body height 2022-12-15 160 cm University of 15:48:00 [facility] Body weight 2022-12-15 68.448 kg University of 15:48:00 [facility] BMI 2022-12-15 26.73 kg/m2 University of 15:48:00 [facility] Oxygen saturation 2022-12-15 98 /min [facility] of in Arterial blood 15:48:00 [facility] by Pulse oximetry Branch Systolic blood 2022-12-14 132 mm[Hg] University of pressure 08:04:00 [facility] Diastolic blood 2022-12-14 87 mm[Hg] University o f pressure 08:04:00 [facility] Heart rate 2022-12-14 83 /min [facility] of 08:04:00 [facility] Body temperature 2022-12-14 36.67 Alisha University of 08:04:00 [facility] Respiratory rate 2022-12-14 20 /min [facility] of 08:04:00 [facility] Body height 2022-12-14 160 cm University of 08:04:00 [facility] Body weight 2022-12-14 67.132 kg University of 08:04:00 [facility] BMI 2022-12-14 26.22 kg/m2 University of 08:04:00 [facility] Oxygen saturation 2022-12-14 97 /min [facility] of in Arterial blood 08:04:00 [facility] by Pulse oximetry [facility] Systolic blood 2022-11-03 143 mm[Hg] [facility] of pressure 17:45:00 [facility] Diastolic blood 2022-11-03 89 mm[Hg] University o f pressure 17:45:00 [facility] Heart rate 2022-11-03 89 /min [facility] of 17:45:00 [facility] Respiratory rate 2022-11-03 16 /min [facility] of 17:45:00 [facility] Oxygen saturation 2022-11-03 99 /min [facility] in Arterial blood 17:45:00 [facility] by Pulse oximetry [facility] Body temperature 2022-11-03 36.61 Alisha University of 14:13:00 [facility] Body height 2022-11-03 160 cm University of 14:13:00 [facility] Body weight 2022-11-03 68.04 kg University of 14:13:00 [facility] BMI 2022-11-03 26.57 kg/m2 University of 14:13:00 [facility] Systolic blood 2022-10-28 115 mm[Hg] [facility] of pressure 21:02:00 [facility] Diastolic blood 2022-10-28 69 mm[Hg] University o f pressure 21:02:00 [facility] Heart rate 2022-10-28 93 /min [facility] of 21:02:00 [facility] Body temperature 2022-10-28 36.89 Alisha University of 21:02:00 [facility] Body height 2022-10-28 160 cm University of 21:02:00 [facility] Body weight 2022-10-28 70.308 kg University of 21:02:00 [facility] BMI 2022-10-28 27.46 kg/m2 University of 21:02:00 [facility] Oxygen saturation 2022-10-28 100 /min [facility] in Arterial blood 21:02:00 [place] [facility] Pulse [facility]xim[facility] Systolic blood 2022-10-13 133 mm[Hg] University of pressure 07:58:00 [facility] Diastolic blood 2022-10-13 72 mm[Hg] University o f pressure 07:58:00 [facility] Heart rate 2022-10-13 109 /min University of 07:58:00 [facility] Body temperature 2022-10-13 36.78 Alisha University of 07:58:00 [facility] Respiratory rate 2022-10-13 16 /min University of 07:58:00 [facility] Body weight 2022-10-13 67.132 kg University of 07:58:00 [facility] BMI 2022-10-13 26.22 kg/m2 University of 07:58:00 [facility] Oxygen saturation 2022-10-13 99 /min University of in Arterial blood 07:58:00 [place] [facility] by Pulse oximetry Branch Systolic blood 2022-10-10 120 mm[Hg] University of pressure 00:44:00 [facility] Diastolic blood 2022-10-10 82 mm[Hg] University o f pressure 00:44:00 [facility] Heart rate 2022-10-10 110 /min University of 00:44:00 [facility] Body temperature 2022-10-10 36.33 Alisha University of 00:44:00 [facility] Respiratory rate 2022-10-10 18 /min University of 00:44:00 [facility] Body height 2022-10-10 160 cm University of 00:44:00 [facility] Body weight 2022-10-10 67.132 kg University of 00:44:00 [facility] BMI 2022-10-10 26.22 kg/m2 University of 00:44:00 [facility] Oxygen saturation 2022-10-10 99 /min University of in Arterial blood 00:44:00 [facility] shanice by Pulse oximetry Branch Systolic blood 2022-09-10 165 mm[Hg] University of pressure 00:13:00 [facility] Diastolic blood 2022-09-10 99 mm[Hg] University o f pressure 00:13:00 [facility] Heart rate 2022-09-10 125 /min University of 00:13:00 [facility] Body temperature 2022-09-10 36.61 Alisha University of 00:13:00 [facility] Respiratory rate 2022-09-10 20 /min University of 00:13:00 [facility] Body weight 2022-09-10 65.772 kg University of 00:13:00 [facility] BMI 2022-09-10 25.69 kg/m2 University of 00:13:00 [facility] Oxygen saturation 2022-09-10 99 /min University of in Arterial blood 00:13:00 [facility] by Pulse oximetry Branch Systolic blood 2022-08-18 134 mm[Hg] University of pressure 22:36:00 [facility] Diastolic blood 2022-08-18 86 mm[Hg] University o f pressure 22:36:00 [facility] Heart rate 2022-08-18 100 /min University of 22:36:00 [facility] Body temperature 2022-08-18 37.11 Alisha University of 22:36:00 [facility] Respiratory rate 2022-08-18 20 /min University of 22:36:00 [facility] Body height 2022-08-18 160 cm University of 22:36:00 [facility] Body weight 2022-08-18 67.132 kg University of 22:36:00 [facility] BMI 2022-08-18 26.22 kg/m2 University of 22:36:00 [facility] Oxygen saturation 2022-08-18 100 /min University of in Arterial blood 22:36:00 [facility] shanice by Pulse oximetry Branch Systolic blood 2022-01-20 123 mm[Hg] [facility] pressure 18:11:00 [facility] Diastolic blood 2022-01-20 85 mm[Hg] [facility] pressure 18:11:00 Hospital Heart rate 2022-01-20 88 /min [facility] 18:11:00 Hospital Body temperature 2022-01-20 36.28 Alisha [facility] 18:11:00 Hospital Respiratory rate 2022-01-20 20 /min [facility] 18:11:00 Hospital Body height 2022-01-20 160 cm [facility] 18:11:00 Hospital Body weight 2022-01-20 66.225 kg [facility] 18:11:00 Hospital BMI 2022-01-20 25.86 kg/m2 [facility] 18:11:00 Hospital Oxygen saturation 2022-01-20 99 /min [facility] in Arterial blood 18:11:00 Hospital by Pulse [...] Systolic blood 2020-02-14 113 mm[Hg] [place] [facility] [place] [facility] pressure 09:21:00 Position: Sitting Diastolic [...] Diastolic blood 2020-01-31 76 mm[Hg] [place] [facility] [place] [facility] 08:57:00 Position: Sitting Body height 2020-01-31 67 [in_us] [facility] 08:57:00 Weight 2020-01-31 159.375 [lb_av] [facility] 08:57:00 Body mass index 2020-01-31 24.96 kg/m2 [facility] (BMI) [Ratio] 08:57:00 Body temperature 2020-01-31 97.9 [degF] Method: Oral [facility] 08:57:00 Heart Rate 2020-01-31 78 /min [facility] 08:57:00 BP Systolic 2019-06-28 130 mm[Hg] Location[facility] 16:14:00 Position: Sitting BP Diastolic 2019-06-28 82 mm[Hg] Location[facility] 16:14:00 Position: Sitting Height 2019-06-28 67 [...] / Time Performing Clinician Source Performed CT ABDOMEN PELVIS W 2023-01-21 21:07:22 Evangelina Abad [facility] POCT TEST 2023-01-21 19:34:00 Gutierrez Moncada Uni versity [facility] LIPASE 2023-01-21 19:32:00 Gutierrez Moncada [facility] TROPONIN I 2023-01-21 19:32:00 Evangelina Abad [place] [facility] [place] [facility] COMP. METABOLIC PANEL 2023-01-21 19:32:00 Gutierrez Moncada [facility] ([id number]) Medical Branch CBC WITH DIFF 2023-01-21 19:32:00 Gutierrez Moncada [facility] Medical Branch URINALYSIS 2023-01-21 19:32:00 Gutierrez Moncada [facility] acute hospital CONSENT/REFUSAL FOR 2023-01-21 18:36:13 Doctor Unassigned, No [facility] [place] [facility] Name Medical Branch LIPASE 2023-01-15 14:47:00 Luiza Lal [place] [facility] Medical Branch COMP. METABOLIC PANEL 2023-01-15 14:47:00 Luiza Lal [facility] ([id number]) Medical Branch CBC WITH DIFF 2023-01-15 14:47:00 Luiza Lal [facility] o [facility] Medical Branch CONSENT/REFUSAL FOR 2023-01-15 13:41:26 Doctor Unassigned, No [facility] [place] [facility] TREATMENT Name Medical Branch CONSENT/REFUSAL FOR 2023-01-15 10:06:16 Doctor Unassigned, No [facility] [place] [facility] TREATMENT Name Medical Branch EXTERNAL PROVIDER 2023-01-07 05:01:00 Doctor Unassigned, No [facility] [place] RECORDS Name Medical Branch EXTERNAL PROVIDER 2023-01-04 05:01:00 Doctor Unassigned, No [facility] [place] RECORDS Name Medical Branch CONSENT/REFUSAL FOR 2022-12-31 05:04:15 Doctor Unassigned, No [facility] [place] [facility] TREATMENT Name Medical Branch CT ANGIOGRAPHY 2022-12-30 17:15:00 Amrit Ma [facility] CORONARIES WITHOUT Medical Branc h CARDIAC CALCIUM SCORING HB CREATININE 2022-12-30 16:24:00 Amrit Ma [facility] SERUM/BLOOD FOR IMAGING Medical Branch CONSENT/REFUSAL FOR 2022-12-30 15:17:01 Doctor Unassigned, No [facility] [place] [facility] TREAT[facility] Name Medical Branch EXTERNAL PROVIDER 2022-12-29 05:01:00 Doctor Unassigned, No [facility] [place] RECORDS Name Medical Branch AUTHORIZATION TO RELEASE 2022-12-21 05:01:00 Doctor Unassigned, No [facility] PHI TO [facility] Name [facility] Branch CT ANGIOGRAM CHEST 2022-12-19 09:28:16 [facility]za [facility] TROPONIN I 2022-12-19 08:40:[address] [facility] D-DIMER 2022-12-19 08:40:[address] [facility] CONSENT/REFUSAL FOR 2022-12-19 07:30:10 Doctor Unassigned, No [facility] D-DIMER 2022-12-14 10:47:[address] [facility] TROPONIN I 2022-12-14 10:16:[address] [facility] LIPASE 2022-12-14 08:31:[address] [facility] TROPONIN I 2022-12-14 08:31:[address] [facility] COMP. METABOLIC PANEL 2022-12-14 08:31:00 Iza Medina [facility] ([id number]) [facility] CBC WITH DIFF 2022-12-14 08:31:[address] [facility] THYROID STIMULATING 2022-12-14 08:31:00 Amrit Ma [facility] HORMONE [facility] NOTICE OF PRIVACY 2022-12-14 07:50:02 Doctor Unassigned, No [facility] PRACTICES [facility] CONSENT/REFUSAL FOR 2022-12-14 07:49:31 Doctor Unassigned, No [facility] URINALYSIS 2022-11-03 15:27:00 Claudia Dotson [place] [facility] URINE DRUG (IMMUNOASSAY) 2022-11-03 15:27:00 Claudia Dotson [facility] SCREEN W/O REFLEX TEST, SERUM 2022-11-03 14:38:00 Claudia Dotson [facility] COMP. METABOLIC PANEL 2022-11-03 14:38:00 Claudia Dotson [facility] ([id number]) Medical Branch CBC WITH DIFF 2022-11-03 14:38:00 Claudia Dotson [place] [facility] Medical Branch D-DIMER 2022-11-03 14:38:00 Claudia Dotson [facility] Medical Branch CONSENT/REFUSAL FOR 2022-11-03 14:04:36 Doctor Unassigned, No [facility] [place] [facility]REAT[facility] Name Medical Branch CONSENT/REFUSAL FOR 2022-10-28 20:34:23 Doctor Unassigned, No [facility] [place] DI[facility]NOSIS AND TREATMENT Name Medical Branch CONSENT/REFUSAL FOR 2022-10-13 07:49:25 Doctor Unassigned, No [facility] [place] DI[facility]NOSIS AND TREATMENT Name Medical Branch CONSENT/REFUSAL FOR 2022-10-10 00:16:57 Doctor Unassigned, No [facility] [place] DI[facility]NOSIS AND TREATMENT Name Medical Branch MRI LUMBAR SPINE WO 2022-10-07 00:35:00 [facility] CONTRAST MRI CERVICAL SPINE WO 2022-10-07 00:22:00 [facility] CONTRAST CONSENT/REFUSAL FOR 2022-09-10 00:07:30 Doctor Unassigned, No [facility] [place] DI[facility]NOSIS AND TREATMENT Name Medical Branch CONSENT/REFUSAL FOR 2022-08-18 22:20:24 Doctor Unassigned, No [facility] [place] [facility] TREATMENT Name Medical Branch CT SPINE EXTERNAL STUDY 2021-11-28 20:02:[address] [facility] [address] SPINE EXTERNAL STUDY 2021-11-28 19:57:[address] [facility] [address] SPINE EXTERNAL STUDY 2021-11-28 19:52:18 [facility] REFERRAL- 2021-11-21 05:01:00 Doctor Unassigned, No [facility] REQUEST/RESPONSE Name Medical Branch MRI SPINE EXTERNAL STUDY 2021-10-09 18:17:21 [facility] [QL] CBC (INCLUDES 2020-02-16 00:00:00 [...] [facility] Transvaginal [facility] Pelvic [facility] 47668 [facility] of [facility] section low transverse Plan of Care Planned Activity Planned Date Details Comments Source Future Scheduled 2022-12-30 Pneumococcal Vaccine: [facility] Test 10:15:19 Pediatrics (0 to 5 Years) and At-Risk Patients (6 to 64 Years) (1 - PCV) [code = Pneumococcal Vaccine: Pediatrics (0 to 5 Years) and At-Risk Patients (6 to 64 Years) (1 - PCV)] Future Scheduled 2022-12-30 Hepatitis C screening [facility] Test 10:15:19 (procedure) [code = 435278037] Future Scheduled 2022-12-30 [facility] Test 10:15:19 malignant neoplasm of cervix (procedure) [code = 142916680] Future Scheduled 2022-12-30 COVID-19 VACCINE (3 - [facility] Test 10:15:19 Booster for Pfizer series) [code = COVID-19 VACCINE (3 - Booster for Pfizer series)] Future Scheduled 2022-12-30 [facility]FLU[facility]ZA [facility]ACCINE [facility] Test 10:15:19 [code = INFLUENZA VACCINE] Future Scheduled 2022-12-30 Pneumococcal Vaccine: [facility] Test 10:15:19 Pediatrics (0 to 5 Years) and At-Risk Patients (6 to 64 Years) (1 - PCV) [code = Pneumococcal Vaccine: Pediatrics (0 to 5 Years) and At-Risk Patients (6 to 64 Years) (1 - PCV)] Future Scheduled 2022-12-30 Hepatitis C screening [facility] Test 10:15:19 (procedure) [code = 527206148] Future Scheduled 2022-12-30 Scre[facility] for [facility] Test 10:15:19 malignant neoplasm of cervix (procedure) [code = 683812586] Future Scheduled 2022-12-30 COVID-19 VACCINE (3 - [facility] Test 10:15:19 Booster for Pfizer series) [code = COVID-19 VACCINE (3 - Booster for Pfizer series)] Future Scheduled 2022-12-30 INFLUENZA VACCINE [facility] Test 10:15:19 [code = INFLUENZA VACCINE] Future Scheduled 2022-08-02 Pneumococcal Vaccine: [facility] Test 11:23:36 Pediatrics (0 to 5 Years) and At-Risk Patients (6 to 64 Years) (1 - PCV) [code = Pneumococcal Vaccine: Pediatrics (0 to 5 Years) and At-Risk Patients (6 to 64 Years) (1 - PCV)] Future Scheduled 2022-08-02 Hepatitis C screening [facility] Test 11:23:36 (procedure) [code = 167587428] Future Scheduled 2022-08-02 Scre[facility] for [facility] Test 11:23:36 malignant neoplasm of cervix (procedure) [code = 452836629] Future Scheduled 2022-08-02 COVID-19 VACCINE (3 - [facility] Test 11:23:36 Booster for Pfizer series) [code = COVID-19 VACCINE (3 - Booster for Pfizer series)] Future Scheduled 2022-08-02 INFLUENZA VACCINE [facility] Test 11:23:36 [code = INFLUENZA VACCINE] Future Scheduled 2022-07-24 Pneumococcal Vaccine: [facility] Test 21:51:51 Pediatrics (0 to 5 Years) and At-Risk Patients (6 to 64 Years) (1 - PCV) [code = Pneumococcal Vaccine: Pediatrics (0 to 5 Years) and At-Risk Patients (6 to 64 Years) (1 - PCV)] Future Scheduled 2022-07-24 Hepatitis C screening [facility] Test 21:51:51 (procedure) [code = 995739919] Future Scheduled 2022-07-24 Scre[facility] for [facility] Test 21:51:51 malignant neoplasm of cervix (procedure) [code = 151198002] Future Scheduled 2022-07-24 COVID-19 VACCINE (3 - [facility] Test 21:51:51 Booster for Pfizer series) [code = COVID-19 VACCINE (3 - Booster for Pfizer series)] Future Scheduled 2022-07-24 INFLUENZA VACCINE [facility] Test 21:51:51 [code = INFLUENZA VACCINE] Future Scheduled 2022-07-15 Pneumococcal Vaccine: [facility] Test 15:03:03 Pediatrics (0 to 5 Years) and At-Risk Patients (6 to 64 Years) (1 - PCV) [code = Pneumococcal Vaccine: Pediatrics (0 to 5 Years) and At-Risk Patients (6 to 64 Years) (1 - PCV)] Future Scheduled 2022-07-15 Hepatitis C screening [facility] Test 15:03:03 (procedure) [code = 925888971] Future Scheduled 2022-07-15 [facility] Test 15:03:03 malignant neoplasm of cervix (procedure) [code = 169599894] Future Scheduled 2022-07-15 COVID-19 VACCINE (3 - [facility] Test 15:03:03 Booster for Pfizer series) [code = COVID-19 VACCINE (3 - Booster for Pfizer series)] Future Scheduled 2022-07-15 INFLUENZA VACCINE [facility] Test 15:03:03 [code = INFLUENZA VACCINE] Future Scheduled 2022 Pneumococcal Vaccine: [facility] Test 09:54:03 Pediatrics (0 to 5 Years) and At-Risk Patients (6 to 64 Years) (1 - PCV) [code = Pneumococcal Vaccine: Pediatrics (0 to 5 Years) and At-Risk Patients (6 to 64 Years) (1 - PCV)] Future Scheduled 2022 Hepatitis C screening [facility] Test 09:54:03 (procedure) [code = 058483424] Future Scheduled 2022 [facility] Test 09:54:03 malignant neoplasm of cervix (procedure) [code = 232487590] Future Scheduled 2022 COVID-19 VACCINE (3 - [facility] Test 09:54:03 Booster for Pfizer series) [code = COVID-19 VACCINE (3 - Booster for Pfizer series)] Future Scheduled 2022 [facility]ZA VACCINE [facility] Test 09:54:03 [code = INFLUENZA VACCINE] Encounters Start End Encounter Admission Attending Care Care Encounter Source Date/Time Date/Time Type Type Clinicians Facility Department ID 2021-07-06 Emergency [facility] [id number] [facility] Emergency [facility] [id number] Univers [facility]:22[facility] 2021-07-04 Emergency [facility] [id number] Univers 10:48:55 [facility] 2021-01-09 Inpatient [facility] MALISSA [id number] [facility] 10:52:00 [id number] [facility] 2020-12-27 Inpatient [facility] MALISSA [id number] [facility] 20:29:00 65 [facility] 2020-12-26 Inpatient CLAUDETTE Escobar, [facility] ENDO [id number] [facility] 10:00:00 Rik 01 [facility] 2020-12-22 Inpatient [facility] [id number] [facility] 23:08:15 49 [facility] 2020-08-23 Inpatient [facility] MALISSA [id number] [facility] 09:10:00 26 [facility] 2020-08-05 Inpatient [facility] MALISSA [id number] [facility] 20:55:00 [id number] [facility] 2020-02-20 Outpatient BHALWAL, [facility] [address] [facility] 10:04:01 LISHA 2023-01-21 2023-01-21 Emergency Pamela ABAD [facility] ERT [id number] Univers 13:46:00 18:49:00 [facility] 2023-01-21 2023-01-21 [facility] [id number] Univers 13:46:00 18:49:00 [facility] 350.1.13.10 [facility] 4.2.7.2.686 [facility] [id number] [address] ([facility]) 2023-01-21 2023-01-21 Outpatient R KRISTY [facility] [id number] Univers 13:30:00 13:30:00 SMITHA [facility] 2023-01-15 2023-01-15 Emergency [facility] [id number] Univers 08:50:00 13:10:00 LUIZA [facility] 2023-01-15 2023-01-15 Emergency [facility] [id number] Univers 08:50:00 13:10:00 Luiza Avila [place] 350.1.13.10 i ty of [facility] 4.2.7.2.686 [facility] [id number] [address] 2023-01-15 2023-01-15 Outpatient R KENZIE BADILLO [facility] [id number] Univers 09:00:00 09:00:00 [facility] 2023-01-15 2023-01-15 Emergency X JAGRUTI [facility] ERT [id number] Univers 05:24:00 06:28:00 IZA [facility] 2023-01-15 2023-01-15 Emergency [facility] [id number] Univers 05:24:00 06:28:00 Iza Avila ISH 350.1.13.10 ity of [facility] 4.2.7.2.686 [facility] [id number] [address] 2023-01-12 2023-01-12 Outpatient R FELISHA [facility] [id number] Univers 10:30:00 10:30:00 ИВАН [facility] 2023-01-08 2023-01-08 Outpatient R FRANCESCA [facility] [id number] Univers 08:00:00 08:00:00 SENDGERMAN [facility] 2023-01-07 2023-01-07 Orders Doctor HALEY [id number] Univers 00:00:00 00:00:00 Only Unassigned, ALEM 350.1.13.10 ity of [place] [facility] 4.2.7.2.686 Zay as [id number] [facility] 009 Branch 2023-01-04 2023-01-04 Orders Doctor SUDHA [id number] Univers 00:00:00 00:00:00 Only Unassigned, ALEM 350.1.13.10 ity of [place] [facility] 4.2.7.2.686 Zay as [id number] [facility] 009 Branch 2023-01-04 2023-01-04 Telephone Felisha [facility] [id number] Univers 00:00:00 00:00:00 Иван HEALTH 350.1.13.10 it y of [place]2.[place] [facility] [id number] [facility] 419 Branch 2023-01-01 2023-01-01 Telephone Sammie [facility] 1.2.840.11 [id number] Univers 00:00:00 00:00:00 Jorge GANDARA 350.1.13.10 it y of [place] [id number] [facility] 134 Branch 2022-12-31 2022-12-31 Emergency X Jasmin GREGORIO [facility] [id number] Univers 00:13:00 01:07:00 ity of [facility] 2022-12-31 2022-12-31 Emergency Jasmin Gregorio [facility] 1.2.840.114 [id number] Univers 00:13:00 01:07:00 Filomena GUERRERO 350.1.13.10 i ty of [place].2.[place] [id number] [facility] 084 Branch 2022-12-31 2022-12-31 Telephone [facility] [id number] Univers 00:00:00 00:00:00 Sendgerman GUERRERO 350.1.13.10 ity of [place].2.[place] [id number] De dical NAL 059 Branch [facility] 2022-12-30 2022-12-30 Hospital [facility] 1.2.840.114 [id number] Univers 10:38:24 23:59:00 Encounter Amrit GUERRERO 350.1.13.10 ity of [place] 4.2.7.2.686 [facility] [id number] [facility] 801 Branch 2022-12-30 2022-12-[address] [facility] [id number] Univers 10:38:24 23:59:[address] [facility] 2022-12-30 2022-12-30 Emergency X [facility]RT [id number] Univers 10:21:00 10:33:00 [facility] 2022-12-30 2022-12-30 Emergency [facility] 1.2.840.114 [id number] Univers 10:21:00 10:33:00 Awilda GUERRERO 350.1.13.10 ity [facility] 4.2.7.2.686 [facility] [id number] [facility] 084 Branch 2022-12-30 2022-12-30 Telephone Sammie [facility] 1.2.840.11 [id number] Univers 00:00:00 00:00:00 Jorge GANDARA 350.1.13.10 it y of WOMEN'S 4.2.7.2.686 [facility] [id number] [facility] 134 Branch 2022-12-29 2022-12-29 Outpatient R JORGE CHANDRA [facility] B [id number] Univers 13:30:00 13:30:[address] JORGE [address] itmisty [facility] 2022-12-29 2022-12-29 Orders Doctor HALEY 1.2.840.114 [id number] Univers 00:00:00 00:00:00 Only Unassigned, ALEM 350.1.13.10 ity of [place] [facility] 4.2.7.2.686 [facility] [id number] [facility] 009 Branch 2022-12-29 2022-12-29 Telephone Felisha [facility] [id number] Univers 00:00:00 00:00:00 Иван HEALTH 350.1.13.10 it y of [place] - [id number] [facility] [address] 2022-12-28 2022-12-28 Telephone [facility] [id number] Univers 00:00:00 00:00:00 Иван HEALTH 350.1.13.10 it y of [place] - [id number] [facility] [address] 2022-12-25 2022-12-25 Patient [facility] 1.2.840.114 [id number] Univers 00:00:00 00:00:00 Secure Msg Linda HEALTH 350.1.13.10 ity of [place] 4.2.7.2.686 Zay as BLANCA?BLEA [id number] De denilson [place] 044 [facility] OFFICE [facility] 2022-12-23 2022-12-23 Telephone [facility] 1.2.840.11 [id number] Univers 00:00:00 00:00:[address] 350.1.13.10 it y of [place]2.[place] [facility] [id number] [facility] [address] 2022-12-23 2022-12-23 Patient [facility] 1.2.840.114 [id number] Univers 00:00:00 00:00:00 Secure Msg Norberto GUERRERO 350.1.13.10 ity of [place].2.[place] [id number] De dical NAL 134 [facility] 2022-12-22 2022-12-22 Bond Underwriter Lab, Ang - Db [facility] 1.2.840.1 [id number] Univers 09:30:00 09:45:00 [facility] 350.1.13.1 0 ity of [facility] 4.2.7.2.686 Zay as BLANCA?BLEA [id number] De dicenid [place] 353 [facility] OFFICE [facility] 2022-12-22 2022-12-22 Office [facility] 1.2.840.114 [id number] Univers 08:00:00 08:53:38 Visit Jorge GANDARA 350.1.13.10 it y of WOMEN'S 4.2.7.2.686 [facility] [id number] [facility] 134 Branch 2022-12-22 2022-12-22 Outpatient R JORGE CHANDRA [facility] B [id number] Univers 08:00:00 08:53:38 TRIANIJORGE CANNON ity of [facility] 2022-12-21 2022-12-21 Orders Doctor SUDHA 1.2.840.114 [id number] Univers 00:00:00 00:00:00 Only Unassigned, ALEM 350.1.13.10 ity of [place] [facility] 4.2.7.2.686 [facility] [id number] [facility] [address] Branch 2022-12-19 2022-12-19 Emergency [facility] [id number] Univers 02:32:00 05:47:[address] [facility] 2022-12-19 2022-12-19 Emergency [facility] 1.2.925.683 2449 [id number] Univers 02:32:00 05:47:00 Iza GUERRERO 350.1.13.10 ity of [place] 4.2.7.2.686 [facility] [phone] [facility] 0[address] Branch 2022-12-18 2022-12-18 Outpatient R KENZIE BADILLO [facility] 748 [id number] Univers 09:45:00 09:45:00 ity of [facility] 2022-12-17 2022-12-17 Telephone Kenzie Badillo [facility] 1.2.840.114 [id number] Univers 00:00:00 00:00:00 E HEALTH 350.1.13.10 it y of [place] 4.2.7.2.686 [facility] - [phone] Med ical [facility] [address] 2022-12-15 2022-12-15 Outpatient R FRANCESCA [facility] [id number] Univers 11:00:00 11:30:30 SENDIL ity of [facility] 2022-12-15 2022-12-15 Office [facility] 1.2.840.114 [id number] 131 Univers 11:00:00 11:30:30 Visit Amrit GURERERO 350.1.13.10 ity of [place].7.2.[place] [phone] [address] 2022-12-15 2022-12-15 [facility] 1.2.813.580 3157 [id number] Univers 00:00:00 00:00:00 Sendgerman GUERRERO 350.1.13.10 ity of [place] [phone] [address] 2022-12-14 2022-12-14 Emergency X [facility] ERT [id number] Univers 03:03:00 07:05:00 [facility] 2022-12-14 2022-12-14 Emergency [facility] 1.2.036.327 0292 [id number] Univers 03:03:00 07:05:00 Iza GUERRERO 350.1.13.10 ity of [place].2.7.2.686 [place] [id number] [address] 2022-11-03 2022-11-03 Emergency X [facility] ERT [id number] Univers 08:15:00 12:05:[address] [facility] 2022-11-03 2022-11-03 Emergency [facility] 1.2.873.080 3930 45210 Univers 08:15:00 12:05:00 Claudia GUERRERO 350.1.13.10 i ty of [place] 4.2.7.2.686 [place] [phone] [address] 2022-10-28 2022-10-[address] [facility] [id number] Univers 15:00:00 15:28:[address] [facility] 2022-10-28 2022-10-28 Office [facility] 1.2.840.114 [id number] 822 Univers 15:00:00 15:28:11 Visit [facility] 350.1.13.10 it y of [facility] 4.2.7.2.686 Zay as BLANCA?BLEA [phone] [address] OFFICE [facility] 2022-10-28 2022-10-28 Orders Doctor SUDHA 1.2.840.114 [id number] Univers 00:00:00 00:00:00 Only Unassigned, ALEM 350.1.13.10 ity of [place] [facility] 4.2.7.2.686 Zay as [phone] [address] 2022-10-28 2022-10-28 Abstract Graciela [facility] 1.2.840.114 65085 5359 Univers 00:00:00 00:00:00 Linda [facility] 350.1.13.10 it y of [place] 4.2.7.2.686 Zay as BLANCA?BLEA [phone] [address] OFFICE [facility] 2022-10-28 2022-10-28 Patient [facility] 1.2.840.114 [id number] Univers 00:00:00 00:00:00 Outreach [facility] 350.1.13.10 i ty of [place] 4.2.7.2.686 Zay as BLANCA?BLEA [id number] [address] OFFICE [facility] 2022-10-28 2022-10-28 Telephone Henry [facility] 1.2.762.007 5645 [id number] Univers 00:00:00 00:00:00 Phylicia GUERRERO 350.1.13.10 i ty of [place].2.[place] [phone] [address] 2022-10-13 2022-10-13 Emergency X JAGRUTI [facility] ERT [id number] Univers 01:56:00 02:55:[address] [facility] 2022-10-13 2022-10-13 Emergency Jagruti [facility] 1.2.818.411 7257 70511 Univers 01:56:00 02:55:00 Iza GUERRERO 350.1.13.10 ity of [place] 4.[place].7.2.[place] [phone] [facility] [address] 2022-10-09 2022-10-09 Emergency X HALI WAGORDON ERT [id number] 78 Univers 18:46:00 19:00:00 LUIZA ity of [facility] 2022-10-09 2022-10-09 Emergency Hali [facility] 1.2.826.272 0057 88218 Univers 18:46:00 19:00:00 Luiza S ISH 350.1.13.10 i ty of [place] 4.2.7.2.686 [facility] [id number] [facility] [address] 2022-10-09 2022-10-09 Orders Doctor SUDHA 1.2.840.114 [id number] 996 Univers 00:00:00 00:00:00 Only Unassigned, ALEM 350.1.13.10 ity of [place] [facility] 4.2.7.2.686 Zay as [phone] [facility] [address] 2022-10-06 2022-10-06 [facility], 1.2.840.1 [id number] 761 [id number] Methodi 17:35:51 23:59:00 Encounter Jorge Luis 11890.1.1 997 s t 3.430.2.7 Hospit a .3.228483 l .8 2022-10-06 2022-10-06 [facility], 1.2.840.1 [id number] 723 [id number] Methodi 17:35:51 23:59:00 Encounter Jorge Luis 53939.1.1 997 s t 3.430.2.7 Hospit a .3.101856 l .8 2022-10-06 2022-10-06 [facility], 1.2.840.1 [id number] 603 [id number] Methodi 17:35:36 23:59:00 Encounter Jorge Luis 28369.1.1 999 s t 3.430.2.7 Hospit a .3.803545 l .8 2022-10-06 2022-10-06 [facility], 1.2.840.1 [id number] 086 [id number] Methodi 17:35:36 23:59:00 Encounter Jorge Luis 39615.1.1 999 s t 3.430.2.7 Hospit a .3.224018 l .8 2022-10-06 2022-10-06 Travel 1.2.840.1 1.2.201.007 4814 807815 Methodi 00:00:00 00:00:[address] 3.430.2.7 0.2.7.3.698 Ho spita .3.503450 084.8 l .8 2022-10-06 2022-10-06 Travel 1.2.840.1 1.2.511.365 2498 472701 Methodi 00:00:00 00:00:[address] 3.430.2.7 0.2.7.3.698 Ho spita .3.868511 084.8 l .8 2022-09-09 2022-09-09 Emergency X KEATING, [facility] ERT [id number] 724 Univers 18:15:00 19:35:[address] [facility] 2022-09-09 2022-09-09 Emergency [facility] 1.2.840.114 995 [id number] Univers 18:15:00 19:35:00 Naty GUERRERO 350.1.13.10 i ty of [place] 4.2.7.2.686 [facility] [phone] [address] 2022-08-18 2022-08-18 Emergency X POPE, [facility] ERT [id number] Univers 16:38:00 17:44:[address] [facility] 2022-08-18 2022-08-18 Emergency [facility] 1.2.313.573 1429 1453 Univers 16:38:00 17:44:00 Bebo ISH 350.1.13.10 i ty of [facility] 4.2.7.2.686 [facility] [phone] [address] 2022-08-07 2022-08-08 Inpatient CLAUDETTE Tyler, [facility]01 [id number] [facility] 14:50:00 12:01:00 Gianna 40 Woman' s [facility] 2022-08-03 2022-08-03 Emergency EM Ernesto, HCACL AERS [id number] [facility] 14:26:00 16:02:00 Roro 86 [facility] 2022-07-23 2022-07-23 [facility], 1.2.840.1 [id number] 918 [id number] Methodi 10:30:00 10:30:00 Encounter Jorge Luis 28861.1.1 209 s t 3.430.2.7 Hospit a .3.112976 l .8 2022-07-23 2022-07-23 Telephone Jemal, 1.2.840.1 [id number] 2100 909090 Methodi 00:00:00 00:00:[address] 3.430.2.7 Hospit a .3.555220 l .8 2022-07-23 2022-07-23 Telephone Jemal, 1.2.840.1 [id number] 2100 593217 Methodi 00:00:00 00:00:[address] 3.430.2.7 Hospit a .3.955283 l .8 2022-07-07 2022-07-07 Outpatient LONA DILL [id number] 936 Lona 10:45:00 10:45:00 ELBERT osriano 2022-07-06 2022-07-06 Travel 1.2.840.1 1.2.878.238 3566 547913 Methodi 00:00:00 00:00:[address] 3.430.2.7 0.2.7.3.698 Ho spita .3.265089 084.8 l .8 2022-07-06 2022-07-06 Travel 1.2.840.1 1.2.975.211 1509 422819 Methodi 00:00:00 00:00:[address] 3.430.2.7 0.2.7.3.698 Ho spita .3.611896 084.8 l .8 2022-06-15 2022-06-16 [facility], 1.2.840.1 [id number] 2099 444044 Methodi 14:15:00 11:08:59 Visit Jorge Luis 07093.1.[address] 3.430.2.7 Hospit a .3.692711 l .8 2022-06-15 2022-06-16 [facility], 1.2.840.1 [id number] 2099 765982 Methodi 14:15:00 11:08:59 Visit Jorge Luis 50734.1.[address] 3.430.2.7 Hospit a .3.771752 l .8 2022-06-15 2022-06-15 [facility], 1.2.840.1 [id number] 809 [id number] Methodi 14:15:15 23:59:00 Encounter Jorge Luis 07738.1.1 971 s t 3.430.2.7 Hospit a .3.994242 l .8 2022-06-15 2022-06-15 [facility], 1.2.840.1 [id number] 852 4674632 Methodi 14:15:15 23:59:00 Encounter Jorge Luis 02825.1.1 971 s t 3.430.2.7 Hospit a .3.674445 l .8 2022-06-15 2022-06-15 [facility], 1.2.840.1 [id number] 149 [id number] Methodi 14:15:13 23:59:00 Encounter Jorge Luis 60017.1.1 963 s t 3.430.2.7 Hospit a .3.488546 l .8 2022-06-15 2022-06-15 [facility], 1.2.840.1 [id number] 040 [id number] Methodi 14:15:13 23:59:00 Encounter Jorge Luis 84055.1.1 963 s t 3.430.2.7 Hospit a .3.334434 l .8 2022-06-15 2022-06-15 [facility], 1.2.840.1 [id number] 730 [id number] Methodi 14:13:36 14:14:00 Encounter Jorge Luis 86120.1.1 680 s t 3.430.2.7 Hospit a .3.727113 l .8 2022-06-15 2022-06-15 [facility], 1.2.840.1 [id number] 811 5371384 Methodi 14:13:36 14:14:00 Encounter Jorge Luis 97445.1.1 680 s t 3.430.2.7 Hospit a .3.935164 l .8 2022-06-15 2022-06-15 [facility], 1.2.840.1 [id number] 584 [id number] Methodi 14:12:01 14:12:01 Encounter Jorge Luis 75317.1.1 418 s t 3.430.2.7 Hospit a .3.771225 l .8 2022-06-15 2022-06-15 [facility], 1.2.840.1 [id number] 390 [id number] Methodi 14:12:01 14:12:01 Encounter Jorge Luis 76918.1.1 418 s t 3.430.2.7 Hospit a .3.762850 l .8 2022-06-15 2022-06-15 [facility], 1.2.840.1 [id number] 2100 251041 Methodi 00:00:00 00:00:00 Only Jorge Luis 89614.1.[address] 3.430.2.7 Hospit a .3.834822 l .8 2022-06-15 2022-06-15 Travel 1.2.840.1 1.2.596.492 3871 576903 Methodi 00:00:00 00:00:[address] 3.430.2.7 0.2.7.3.698 Ho spita .3.919548 084.8 l .8 2022-06-15 2022-06-15 Orders Sathya, 1.2.840.1 [id number] 2099 833793 Methodi 00:00:00 00:00:00 Only Jorge Luis 17640.1.[address] 3.430.2.7 Hospit a .3.927742 l .8 2022-06-15 2022-06-15 Travel 1.2.840.1 1.2.974.642 7764 339572 Methodi 00:00:00 00:00:[address] 3.430.2.7 0.2.7.3.698 Ho spita .3.774946 084.8 l .8 2022-06-11 2022-06-11 Travel 1.2.840.1 1.2.058.685 9131 571645 Methodi 00:00:00 00:00:[address] 3.430.2.7 0.2.7.3.698 Ho spita .3.950785 084.8 l .8 2022-06-11 2022-06-11 Travel 1.2.840.1 1.2.741.282 4272 750933 Methodi 00:00:00 00:00:[address] 3.430.2.7 0.2.7.3.698 Ho spita .3.975156 084.8 l .8 2022-02-17 2022-02-17 Refill Vivian, 1.2.840.1 [id number] 2099 172066 Methodi 00:00:00 00:00:[address] Andrea 3.430.2.7 Hospit a .3.693967 l .8 2022-02-17 2022-02-17 Refrajesh Borges, 1.2.840.1 [id number] 2099 089446 Methodi 00:00:00 00:00:[address] [place] [address] Andrea 3.430.2.7 Hospit a .3.943868 l .8 2022-01-20 2022-01-20 Office Gauri Borges.2.840.1 [id number] 2100 777621 Methodi 13:00:00 13:57:49 Visit [place] 26558.1.[address] [facility] 3.430.2.7 Hospit a .3.899020 l .8 2022-01-20 2022-01-20 Telephone GEORGIE Kelley 1.2.840.114 9 [id number] Univers 00:00:00 00:00:00 Michi MULTISPEC 350.1.13.10 ity of [place] 4.2.7.2.686 [facility] [id number] [address] [facility] 2022-01-20 2022-01-20 Travel 1.2.840.1 1.2.513.887 7960 021774 Methodi 00:00:00 00:00:[address] 3.430.2.7 0.2.7.3.698 spita .3.846313 084.8 l .8 2022-01-19 2022-01-19 Telephone GEORGIE Borges 1.2.840.114 93 [id number] [facility] 00:00:00 00:00:00 Jessi JOHN 350.1.13.10 ity of [place] 4.2.7.2.686 [facility] [phone] [address] [facility] 2021-11-21 2021-11-21 Orders Doctor SUDHA 1.2.840.114 [id number] 36 Univers 00:00:00 00:00:00 Only Unassigned, ALEM 350.1.13.10 ity of [place] [facility] 4.2.7.2.686 [facility] [phone] [facility] [address] 2021-11-17 2021-11-18 Emergency X GEORGIE QIU ERT [id number] Univers 19:45:00 00:44:00 DONTA calitxo of [facility] 2021-11-17 2021-11-18 Emergency [facility] 1.2.548.179 9316 8574 Univers 19:45:00 00:44:00 Donta GUERRERO 350.1.13.10 i ty of [place] 4.2.7.2.686 [facility] [id number] [address] 2021-11-16 2021-11-16 Emergency [facility] ERT [id number] 86 Univers 20:28:00 21:58:[address] [facility] 2021-11-16 2021-11-16 Emergency [facility] 1.2.737.033 6283 5340 Univers 20:28:00 21:58:00 Iza Avila ISH 350.1.13.10 ity [facility] 4.2.7.2.686 [facility] [id number] [address] 2021-10-02 2021-10-02 Emergency EM Nwoye, HCACL MALISSA [id number] [facility] 16:59:00 20:32:00 Hung 112470 Cl [facility] 2021-10-02 2021-10-02 Emergency EM EDDOC, [facility] [id number] [facility] 16:59:00 20:32:00 GENERIC 76 [facility] 2021-10-01 2021-10-01 Petr Borges 1.2.840.1 [id number] 2100 228437 Method 00:00:00 00:00:00 [place] 25891.1.1 738 [facility] 3.430.2.7 Hospit a .3.456308 l .8 2021-09-30 2021-09-30 Emergency [facility] [id number] Univers 13:31:00 16:34:[address] [facility] 2021-09-30 2021-09-30 Emergency [facility] 1.2.840.114 90 712470 Univers 13:31:00 16:34:00 Awilda GUERRERO 350.1.13.10 ity of [place] 4.2.7.2.686 [facility] [id number] [address] 2021-08-14 2021-08-14 Refill Gutierres, 1.2.840.1 [id number] 21 [id number] Methodi 00:00:00 00:00:[address] 3.430.2.7 Hospit a .3.038219 l .8 2021-08-12 2021-08-12 Refill Nenita, 1.2.840.1 [id number] 21 [id number] Methodi 00:00:00 00:00:[address] 3.430.2.7 Hospit a .3.524222 l .8 2021-07-23 2021-07-23 Emergency X [facility] ERT [id number] 08 Univers 16:14:00 17:06:00 ity of [facility] 2021-07-23 2021-07-23 Emergency [facility] 1.2.947.746 2088 5383 Univers 16:14:00 17:06:00 ISH 350.1.13.10 i ty [facility] 4.2.7.2.686 [facility] [phone] [place] [address] [address] 2021-07-23 2021-07-23 Emergency EM White, HCACL AERS [id number] [facility] 13:58:00 14:24:00 Burak [id number] [facility] 2021-07-23 2021-07-23 Emergency EM White, HCACL HCACL [id number] [facility] 13:58:00 14:24:00 Burak 69 [facility] 2021-07-10 2021-07-10 Telemedici Vivian, 1.2.840.1 [id number] 2 [id number] Methodi 08:30:00 09:02:51 ne Jessi 21095.1.[address] Andrea 3.430.2.7 Hospit a .3.608765 l .8 2021-07-09 2021-07-09 Travel 1.2.840.1 1.2.016.904 7714 622485 Methodi 00:00:00 00:00:[address] 3.430.2.7 0.2.7.3.698 Ho spita .3.820971 084.8 l .8 2021-06-13 2021-06-13 Outpatient [facility]IV[facility] [id number] 7[address]65 [place] 00:00:00 00:00:[address] 2021-04-17 2021-04-17 Emergency E LOLITA [facility] 7515 16:40:00 19:42:00 [facility] 2021-03-30 2021-03-30 Emergency E D[facility]AH [facility] 7514 BL 00:46:00 06:26:00 SAB 2021-01-15 2021-01-15 Outpatient ITALIA Escobar OUTD G81 [id number] [facility] 08:00:00 08:00:00 Rik [id number] [facility] 2021-01-09 2021-01-09 Emergency E LOLITA [facility] 7513 12:29:00 16:41:00 [facility] 2020-12-26 2020-12-26 Emergency [facility] 064 [id number] 09 [place] 00:00:00 00:00:00 039 Method i 2020-12-21 2020-12-22 Emergency [facility] 1.2.447.252 5170 7932 [facility] 22:42:00 02:02:00 Iza Guerrero 350.1.13.10 ity of [place] 4.2.7.2.686 [facility] [id number] [address] 2020-12-21 2020-12-22 Emergency [facility] 1.2.038.282 4448 7932 22:42:00 02:02:00 Ilnela Evelin Guerrero 350.1.13.10 [place] 4.2.7.2.686 [place] [phone] [facility] 2020-12-21 2020-12-21 Orders Doctor HALEY 1.2.840.114 [id number] 30 00:00:00 00:00:00 Only Unassigned, ALEM 350.1.13.10 ity of [place] [facility] 4.2.7.2.686 [facility] [id number] [address] 2020-12-21 2020-12-21 Orders Doctor HALEY 1.2.840.114 [id number] 30 00:00:00 00:00:00 Only Unassigned, ALEM 350.1.13.10 [place] [facility] 4.2.7.2.686 [id number] 009 2020-08-15 2020-08-19 Inpatient [facility] [id number] [facility] 14:57:00 06:49:15 39 [facility] 2020-08-15 2020-08-15 Emergency [facility] 1.2.769.640 6517 8387 Univers 03:26:00 06:17:00 Donta Guerrero 350.1.13.10 i ty of [place] 4.2.7.2.[address] [place] [id number] 2020-08-15 2020-08-15 Emergency X [facility] ERT [id number] Univers 03:26:00 06:17:[address] [facility] 2020-08-15 2020-08-15 Emergency [facility] 1.2.753.260 1295 8387 03:26:00 06:17:00 Donta Guerrero 350.1.13.[address] [place] [address] [place] [address] [phone] [facility] 2020-04-13 2020-04-13 [facility] 1.2.840.114 77 [id number] Univers 19:38:00 23:40:00 Awilda Guerrero 350.1.13.10 ity of [place] 4.2.7.2.[address] [place] [phone] 2020-04-13 2020-04-13 Emergency [facility] 1.2.840.114 77 [id number] 19:38:00 23:40:00 Awilda Guerrero 350.1.13.10 [place] [address]7.[address] [place] [address] [phone] [facility] 2020-04-13 2020-04-13 Orders Doctor HALEY 1.2.840.114 [id number] 77 Univers 00:00:00 00:00:00 Only UnassignedALEM 350.1.13.10 ity of [place] [facility] 4.2.7.2.686 Zay as [phone] [address] 2020-04-13 2020-04-13 Orders Doctor SUDHA 1.2.840.114 [id number] 77 00:00:00 00:00:00 Only Unassigned, ALEM 350.1.13.10 [place] [facility] 4.2.7.2.686 [id number] 009 2020-04-10 2020-04-10 Emergency [place], [facility] 1.2.277.594 3798 5068 [facility] 15:39:00 19:05:00 Bebo Guerrero 350.1.13.10 i ty of [place] 4.2.7.2.686 [place] [id number] [address] 2020-04-10 2020-04-10 Emergency [place], [facility] 1.2.212.612 5920 5068 15:39:00 19:05:00 Beboangelo Guerrero 350.1.13.10 [place] 4.2.7.2.686 [place] [phone] [facility] 2020-04-10 2020-04-10 Orders Doctor SUDHA 1.2.840.114 [id number] 10 Univers 00:00:00 00:00:00 Only Unassigned, ALEM 350.1.13.10 ity of [place] [facility] 4.2.7.2.686 Zay as [phone] [address] 2020-04-10 2020-04-10 Orders Doctor SUDHA 1.2.840.114 [id number] 10 00:00:00 00:00:00 Only Unassigned, ALEM 350.1.13.10 [place] [facility] 4.2.7.2.686 [id number] 009 2020-03-11 2020-03-11 Dusty FOSTER [facility] Obstetrics 677 04216 [place] 10:00:00 10:00:00 t; Gayatri HUSAIN and Quynh FOSTER, Gynecology rubén HUSAIN M.D. [facility] 2020-02-28 2020-02-28 MARIBEL Giraldo UTP [id number] 86 [place] 08:30:00 08:30:00 t; Gayatri HUSAIN ans ASHA, M.D. 2020-02-23 2020-02-23 [facility] [id number] [place] 11:00:00 11:00:00 t; Gayatri HUSAIN ans ASHA, M.D. 2020-02-16 2020-02-16 [facility] Obstetrics [id number] [place] 14:15:00 14:15:00 t; Yue ROCHA i, M.D. Gynecology [facility] Dinah ROCHA M.D. Clinic 2020-02-15 2020-02-15 Emergency E AMELIE, MHSE MHSE [id number] MH 20:06:00 21:19:[address] [facility] 2020-02-14 2020-02-14 [facility] Obstetrics [id number] [place] 09:00:00 09:00:00 t; SAMIR MATAMOROS and Phy sici BETHANY, M.D. Gynecology [facility] 2020-01-31 2020-01-31 [facility] Obstetrics [id number] [place] 08:30:00 08:30:00 t; Yue WATKINS i, D.O. Gynecology [facility] Dinah WATKINS D.O. Clinic 2019-12-20 2019-12-20 [facility] A[facility] Orthopedics [id number] [place] 09:30:00 09:30:00 t; mayo CID [facility] Quynh GOSS M.D. [facility] Jewel Lazo M.D. [facility] 2019-12-20 2019-12-20 [id number] [place] 04:51:00 04:51:00 0415 [facility] 2019-12-18 2019-12-18 Emergency E TABBY, MHSE MHSE [id number] MH 20:54:00 21:40:[address] [facility] 2019-10-11 2019-10-12 Emergency X LAZARUS WAGORDON ERT [id number] Univers 21:52:36 00:17:[address] [facility] 2019-10-11 2019-10-12 Emergency Lazarus [facility] [id number] [facility] 21:52:36 00:17:00 Donta Ish 350.1.13.10 i ty of [place] 4.2.7.2.686 [facility] [phone] [facility] [address] [place] [address] 2019-10-11 2019-10-12 Emergency Qiu, [facility] [id number] 21:52:36 00:17:00 Donta Guerrero 350.1.13.10 [place] 4.2.7.2.686 [place] [id number] [facility] 2019-10-11 2019-10-11 Orders Doctor SUDHA [id number] [id number] Univers 00:00:00 00:00:00 Only Unassigned, ALEM 350.1.13.10 ity of [place] [facility] 4.2.7.2.686 Zay as [phone] [facility] [address] [place] 2019-10-11 2019-10-11 Orders Doctor SUDHA 1.2.840.114 [id number] 00:00:00 00:00:00 Only Unassigned, ALEM 350.1.13.10 [place] [facility] 4.2.7.2.686 [id number] [id number] 2019-06-28 2019-06-28 Appointmen MARIBEL GRUBBS Obstetrics [id number] [place] 16:00:00 16:00:00 t; Gayatri CAVANAUGH and Ph ysici HUMERA, Gynecology Dinah Medina M.D. [facility] 2019-05-12 2019-05-12 [facility] 1.2 .840.114 [id number] [facility] 10:44:42 12:05:57 Visit Perri Pérez RE EXAMINER 350.1.13.10 ity of REGIONAL 4.2.7.2.686 Zay as MATERNAL [id number] Med ical & CHILD [address] [place] [address] 2019-05-12 2019-05-12 Nurse Visit, [facility] 1.2.840.114 [id number] 10:44:42 12:05:57 Visit Carrigracie RE EXAMINER 350.1.13.10 Nurse [facility] 4.2.7.2.686 MATERNAL [phone] & CHILD 107 [facility] 2019-05-10 2019-05-10 [facility] 1.2.840.114 [id number] Univers 00:00:00 00:00:00 Perri Olivier RE EXAMINER 350.1.13.10 it y of REGIONAL 4.2.7.2.686 Zay as MATERNAL [id number] Med ical & CHILD [address] [place] [address] 2019-05-10 2019-05-10 [facility]phone [facility] 1.2.840.114 [id number] 00:00:00 00:00:00 Perri N RE EXAMINER 350.1.13.10 REGIONAL 4.2.7.2.686 MATERNAL [phone] & CHILD 107 [facility] 2019-04-03 2019-04-03 Patient Bogdan, UNIVERSIT 1.2.840.114 [id number] Univers 00:00:00 00:00:00 Secure Msg Ivet Y HEALTH 350.1.13.10 ity of [facility] 4.2.7.2.686 [place] [phone] [facility] [address] 2019-04-03 2019-04-03 Patient Bogdan, UNIVERSIT 1.2.840.114 [id number] 00:00:00 00:00:00 Secure Msg Ivet Y HEALTH 350.1.13.10 CLINICS 4.2.7.2.686 [id number] 113 2019-03-07 2019-03-07 Patient Doctor SUDHA 1.2.840.114 [id number] Univers 00:00:00 00:00:00 Secure Msg Unassigned, ALEM 350.1.13.10 [facility] of [facility] 4.2.7.2.686 Zay as [phone] [facility] [address] 2019-03-07 2019-03-07 Patient Doctor SUDHA 1.2.840.114 [id number] 20 00:00:00 00:00:00 Secure Msg Unassigned, ALEM 350.1.13.10 [facility] [phone] [facility] 2019-02-27 2019-02-27 Patient Doctor SUDHA 1.2.840.114 [id number] Univers 00:00:00 00:00:00 Secure Msg Unassigned, ALEM 350.1.13.10 [facility] [place] [facility] 4.2.7.2.686 Zay as [phone] [address] 2019-02-27 2019-02-27 Patient Doctor SUDHA 1.2.840.114 [id number] 58 00:00:00 00:00:00 Secure Msg Unassigned, ALEM 350.1.13.10 [place] [facility] [id number] [facility] 2018-10-13 2018-10-13 Dusty [facility] [id number] 058 [place] 14:30:00 14:30:00 t; Jennifer FINK i, M.D. ans JORDAN, M.D. 2018-09-07 2018-09-21 Outpatient [facility] [id number] 15:00:00 10:19:03 2018-09-07 2018-09-07 AppointMARIBEL [employer] [id number] [place] 15:00:00 15:00:00 t; BONITA KRISHNA, Gayatri Alvarado M.D. Results Test Description Test Time Test Comments Results Result Comments Source TROPONIN I 2023-01-21 20:27:33 Test Item Value Reference Range Interpretation Comme nts TROPONIN I (test code = 1863738420) <=0.034 ANGI (test code = ANGI) Reference (Normal) [...] to patient's use of biotin. Lab Interpretation (test code = Normal 67007-5) [facility] [id number] 20:18:51 Test Item Value Reference Range Interpretation Comments NA (test code = 132 mmol/L 135-145 L 6313631333) K (test code = 4.1 mmol/L 3.5-5.0 7056920964) CL (test code = 98 mmol/L 98-108 8245687780) CO2 TOTAL (test code = 26 mmol/L 23-31 3621318928) AGAP (test code = 8 2-16 1540448925) BUN (test code = 12 mg/dL 7-23 2865379643) GLUCOSE (test code = 79 mg/dL 70-110 1421053540) CREATININE (test code = 0.58 mg/dL 0.50-1.04 5289777134) TOTAL BILI (test code = 0.4 mg/dL 0.1-1.5 2517158398) CALCIUM (test code = 9.0 mg/dL 8.6-10.6 6350686291) T PROTEIN (test code = 7.4 g/dL 6.3-8.2 6303883756) ALBUMIN (test code = 4.5 g/dL 3.5-5.0 2983556301) ALK PHOS (test code = 62 U/L 34-122 4574932036) ALTv (test code = 23 U/L 5-35 1742-6) AST(SGOT) (test code = 31 U/L 13-40 3630904884) eGFR (test code = 122.1 mL/min/1.73m2 7061054060) ANGI (test code = ANGI) Association of [...] tests). Lab Interpretation Abnormal (test code = 11939-2) [facility], [id number] 20:18:51 Test Item Value Reference Range Interpretation Comments LIPASE (test code = 2933086479) 186 U/L 0-220 Lab Interpretation (test code = Normal 88303-9) [facility] with Lhrhkihpgzof2527-33-94 19:39:40 Test Item Value Reference Range Interpretation Comments WBC (test code = 5.62 See_Comment [Automated 3103-2) message] The sy stem which generated this result transmitted reference range : 4.30 - 11.10 10*3/?L. The reference range was not used to interpret this result as normal/abnormal . RBC (test code = 4.24 See_Comment [Automated 064-8) message] The sy stem which generated this result transmitted reference range : 3.93 - 5.25 10*6/?L. The reference range was not used to interpret this result as normal/abnormal . HGB (test code = 13.3 g/dL 11.6-15.0 718-7) HCT (test code = 38.7 % 35.7-45.2 4544-3) MCV (test code = 91.3 fL 80.6-95.5 787-2) MCH (test code = 31.4 pg 25.9-32.8 785-6) MCHC (test code = 34.4 g/dL 31.6-35.1 786-4) RDW-SD (test code = 44.1 fL 39.0-49.9 96837-7) RDW-CV (test code = 13.2 % 12.0-15.5 788-0) PLT (test code = 277 See_Comment [Automated 098-3) message] The sy stem which generated this result transmitted reference range : 166 - 358 10*3/ ?L. The reference r dagoberto was not used to interpret this result as normal/abnormal . MPV (test code = 8.5 fL 9.5-12.9 L 78182-7) NRBC/100 WBC (test 0.0 See_Comment [Automat ed code = 8209948743) message] The system which generated this result transmitted reference range : 0.0 - 10.0 /100 WBCs. The refer ence range was not u sed to interpret th is result as normal/abnormal . NRBC x10^3 (test code See_Comment [Auto mated = 2296372939) message] The s ystem which generated this result transmitted reference range : 10*3/?L. The reference range was not used to interpret this result as normal/abnormal . GRAN MAT (NEUT) % 46.4 % (test code = 770-8) IMM GRAN % (test code 0.90 % = 7339187255) LYMPH % (test code = 38.6 % 736-9) MONO % (test code = 12.5 % 5905-5) EOS % (test code = 0.7 % 713-8) BASO % (test code = 0.9 % 706-2) GRAN MAT x10^3(ANC) 2.61 10*3/uL 1.88-7.09 (test code = 4892576599) IMM GRAN x10^3 (test 0.05 10*3/uL 0.00-0.06 code = 1420950304) LYMPH x10^3 (test code 2.17 10*3/uL 1.32-3.29 = 731-0) MONO x10^3 (test code 0.70 10*3/uL 0.33-0.92 = 742-7) EOS x10^3 (test code = 0.04 10*3/uL 0.03-0.39 711-2) BASO x10^3 (test code 0.05 10*3/uL 0.01-0.07 = 704-7) Lab Interpretation Abnormal (test code = 03704-6) [facility] [id number] 19:34:00 Test Item Value Reference Range Interpretation Comments POCT PREG (test code = 1605) Negative On board controls acceptable with Yes C Line (test code = 3574) POCT PREG LOT # (test code = 8392) [id number] POCT PREG TEST DATE (test 04/13/2024 code = 3576) Lab Interpretation (test code = Normal 46221-5) [facility]. METABOLIC PANEL (85054)2023-01-15 15:36:17 Test Item Value Reference Range Interpretation Comments NA (test code = 139 mmol/L 135-145 0399187284) K (test code = 4.7 mmol/L 3.5-5.0 8294133125) CL (test code = 103 mmol/L 98-108 1266729600) CO2 TOTAL (test code 28 mmol/L 23-31 = 1191989058) AGAP (test code = 8 2-16 5474917341) BUN (test code = 14 mg/dL 7-23 3569394979) GLUCOSE (test code = 75 mg/dL 70-110 4823544530) CREATININE (test code 0.72 mg/dL 0.50-1.04 = 9263690168) TOTAL BILI (test code 0.4 mg/dL 0.1-1.1 = 6056981101) CALCIUM (test code = 9.4 mg/dL 8.6-10.6 6686618955) T PROTEIN (test code 7.4 g/dL 6.3-8.2 = 2818004592) ALBUMIN (test code = 4.5 g/dL 3.5-5.0 2882249830) ALK PHOS (test code = 58 U/L 34-122 5964522235) ALTv (test code = 22 U/L 5-35 1742-6) AST(SGOT) (test code 24 U/L 13-40 = 5107290127) eGFR (test code = 95.1 mL/min/1.73m2 9741527347) ANGI (test code = ANGI) Association of [...] or urine or abnormalities in imaging tests). [facility]2023-05-12 15:36:17 Test Item Value Reference Range Interpretation Comments LIPASE (test code = 0332522218) 93 U/L 0-220 Lab Interpretation (test code = Normal 69720-8) [facility] WITH [id number] 15:19:14 Test Item Value Reference Range Interpretation Comments WBC (test code = 7.99 See_Comment [Automated 6634-2) message] The sy stem which generated this result transmitted reference range : 4.30 - 11.10 10*3/?L. The reference range was not used to interpret this result as normal/abnormal . RBC (test code = 4.24 See_Comment [Automated 663-6) message] The sy stem which generated this result transmitted reference range : 3.93 - 5.25 10*6/?L. The reference range was not used to interpret this result as normal/abnormal . HGB (test code = 13.1 g/dL 11.6-15.0 718-7) HCT (test code = 38.3 % 35.7-45.2 4544-3) MCV (test code = 90.3 fL 80.6-95.5 787-2) MCH (test code = 30.9 pg 25.9-32.8 785-6) MCHC (test code = 34.2 g/dL 31.6-35.1 786-4) RDW-SD (test code = 42.5 fL 39.0-49.9 42611-6) RDW-CV (test code = 12.9 % 12.0-15.5 788-0) PLT (test code = 317 See_Comment [Automated 777-3) message] The sy stem which generated this result transmitted reference range : 166 - 358 10*3/ ?L. The reference r dagoberto was not used to interpret this result as normal/abnormal . MPV (test code = 8.8 fL 9.5-12.9 L 75216-7) NRBC/100 WBC (test 0.0 See_Comment [Automat ed code = 2845572247) message] The system which generated this result transmitted reference range : 0.0 - 10.0 /100 WBCs. The refer ence range was not u sed to interpret th is result as normal/abnormal . NRBC x10^3 (test code See_Comment [Auto mated = 6571178608) message] The s ystem which generated this result transmitted reference range : 10*3/?L. The reference range was not used to interpret this result as normal/abnormal . GRAN MAT (NEUT) % 55.7 % (test code = 770-8) IMM GRAN % (test code 0.30 % = 6718042458) LYMPH % (test code = 34.0 % 736-9) MONO % (test code = 8.1 % 5905-5) EOS % (test code = 1.0 % 713-8) BASO % (test code = 0.9 % 706-2) GRAN MAT x10^3(ANC) 4.45 10*3/uL 1.88-7.09 (test code = 9828451836) IMM GRAN x10^3 (test 0.00-0.06 code = 0280949541) LYMPH x10^3 (test code 2.72 10*3/uL 1.32-3.29 = 731-0) MONO x10^3 (test code 0.65 10*3/uL 0.33-0.92 = 742-7) EOS x10^3 (test code = 0.08 10*3/uL 0.03-0.39 711-2) BASO x10^3 (test code 0.07 10*3/uL 0.01-0.07 = 704-7) Lab Interpretation Abnormal (test code = 29442-2) [facility] [id number] 16:38:09 Test Item Value Reference Range Interpretation Comments POCT Creatinine (test code = 0.7 mg/dL 0.5-1.8 7543088960) Lab Interpretation (test code = Normal 70047-2) [facility]kinTHYROID STIMULATING [id number] 17:16:01 Test Item Value Reference Range Interpretation Comments TSH (test code = 3.96 See_Comment [Automated message] 7285067446) The system [employer] generated this result transmitted ref erence range: 0.45 - 4 .70 mIU/L. The refe rence range was not u sed to interpret this result as normal/abnor mal. Lab Interpretation (test Normal code = 05576-2) [facility]kinD-[id number] 11:33:33 Test Item Value Reference Interpretation Comments Range D-DIMER (test code = See_Comment [Autom ated 7284431926) message] The system which generated this result [...] diagnosis. Lab Interpretation Normal (test code = 89316-1) [facility] [id number] 10:57:27 Test Item Value Reference Range Interpretation Comments TROPONIN I (test code = 0.012 ng/mL <=0.034 3574044656) ANGI (test code = ANGI) Reference (Normal) [...] biotin. Lab Interpretation Normal (test code = 87861-2) [facility] [id number] 09:04:18 Test Item Value Reference Range Interpretation Comments TROPONIN I (test code = 0.010 ng/mL <=0.034 3353571576) ANGI (test code = ANGI) Reference (Normal) [...] biotin. Lab Interpretation Normal (test code = 56941-5) [facility] WITH [id number] 09:03:38 Test Item Value Reference Range Interpretation Comments WBC (test code = 10.76 See_Comment [Automated 5307-2) message] The sy stem which generated this result transmitted reference range : 4.30 - 11.10 10*3/?L. The reference range was not used to interpret this result as normal/abnormal . RBC (test code = 4.19 See_Comment [Automated 897-6) message] The sy stem which generated this [...] (test code = 36.7 fL 39.0-49.9 L 54140-6) RDW-CV (test code = 11.6 % 12.0-15.5 L 788-0) PLT (test code = 317 See_Comment [Automated 777-3) message] The sy stem which generated this result transmitted reference range : 166 - 358 10*3/ ?L. The reference r dagoberto was not used to interpret this result as normal/abnormal . MPV (test code = 8.8 fL 9.5-12.9 L 76119-1) NRBC/100 WBC (test 0.0 See_Comment [Automat ed code = 6754125148) message] The system which generated this result transmitted reference range : 0.0 - 10.0 /100 WBCs. The refer ence range was not u sed to interpret th is result as normal/abnormal . NRBC x10^3 (test code See_Comment [Auto mated = 7081052731) message] The s ystem which generated this result transmitted reference range : 10*3/?L. The reference range was not used to interpret this result as normal/abnormal . GRAN MAT (NEUT) % 49.3 % (test code = 770-8) IMM GRAN % (test code 0.50 % = 5747677657) LYMPH % (test code = 42.6 % 736-9) MONO % (test code = 6.3 % 5905-5) EOS % (test code = 0.6 % 713-8) BASO % (test code = 0.7 % 706-2) GRAN MAT x10^3(ANC) 5.32 10*3/uL 1.88-7.09 (test code = 5677342923) IMM GRAN x10^3 (test 0.05 10*3/uL 0.00-0.06 code = 6136848006) LYMPH x10^3 (test code 4.58 10*3/uL 1.32-3.29 H = 731-0) MONO x10^3 (test code 0.68 10*3/uL 0.33-0.92 = 742-7) EOS x10^3 (test code = 0.06 10*3/uL 0.03-0.39 711-2) BASO x10^3 (test code 0.07 10*3/uL 0.01-0.07 = 704-7) Lab Interpretation Abnormal (test code = 85709-0) [facility]. METABOLIC PANEL (32171)2022-12-14 08:52:54 Test Item Value Reference Range Interpretation Comments NA (test code = 137 mmol/L 135-145 6820685513) K (test code = 3.9 mmol/L 3.5-5.0 2349033522) CL (test code = 103 mmol/L 98-108 1672660733) CO2 TOTAL (test code 25 mmol/L 23-31 = 1195848354) AGAP (test code = 9 2-16 3804597578) BUN (test code = 14 mg/dL 7-23 4396302096) GLUCOSE (test code = 88 mg/dL 70-110 6148566754) CREATININE (test code 0.69 mg/dL 0.50-1.04 = 6492843028) TOTAL BILI (test code 0.4 mg/dL 0.1-1.1 = 1021665999) CALCIUM (test code = 9.5 mg/dL 8.6-10.6 9302026927) T PROTEIN (test code 7.8 g/dL 6.3-8.2 = 7566700507) ALBUMIN (test code = 4.9 g/dL 3.5-5.0 8090929654) ALK PHOS (test code = 59 U/L 34-122 3862893304) ALTv (test code = 19 U/L 5-35 1742-6) AST(SGOT) (test code 23 U/L 13-40 = 8257909231) eGFR (test code = 99.9 mL/min/1.73m2 5149653955) ANGI (test code = ANGI) Association of [...] or urine or abnormalities in imaging tests). [facility]IPASE2023-04-10 08:52:34 Test Item Value Reference Range Interpretation Comments LIPASE (test code = 7848588799) 70 U/L 0-220 Lab Interpretation (test code = Normal 67739-1) [facility]kinD-[id number] 15:45:47 Test Item Value Reference Interpretation Comments Range D-DIMER (test code = See_Comment [Autom ated 3430463193) message] The system which generated this result [...] diagnosis. Lab Interpretation Normal (test code = 99052-6) [facility]REGNANCY TEST, [id number] 15:07:51 Test Item Value Reference Range Interpretation Comments PREG SERUM (test code Negative = 2491918084) ANGI (test code = ANGI) Less than 10 IU/L. ?If low titer or ectopic is suspected, resubmit specimen in 48-[address] [facility]. METABOLIC PANEL (01113)2022-11-03 15:05:35 Test Item Value Reference Range Interpretation Comments NA (test code = 138 mmol/L 135-145 8351555820) K (test code = 4.4 mmol/L 3.5-5.0 7244594564) CL (test code = 104 mmol/L 98-108 8020961588) CO2 TOTAL (test code = 25 mmol/L 23-31 3859698214) AGAP (test code = 9 2-16 3742897774) BUN (test code = 8 mg/dL 7-23 6778115746) GLUCOSE (test code = 100 mg/dL 70-110 5932106734) CREATININE (test code = 0.68 mg/dL 0.50-1.04 0671471011) TOTAL BILI (test code = 0.6 mg/dL 0.1-1.1 1376302697) CALCIUM (test code = 9.3 mg/dL 8.6-10.6 0592870367) T PROTEIN (test code = 8.2 g/dL 6.3-8.2 0056668693) ALBUMIN (test code = 5.1 g/dL 3.5-5.0 H 5809695753) ALK PHOS (test code = 57 U/L 34-122 0472968327) ALTv (test code = 21 U/L 5-35 1742-6) AST(SGOT) (test code = 29 U/L 13-40 3663620873) eGFR (test code = 101.6 mL/min/1.73m2 1328997396) ANGI (test code = ANGI) Association of [...] tests). Lab Interpretation Abnormal (test code = 85297-6) [facility] WITH [id number] 14:50:54 Test Item Value Reference Range Interpretation Comments WBC (test code = 8.23 See_Comment [Automated 1690-2) message] The sy stem which generated this result transmitted reference range : 4.30 - 11.10 10*3/?L. The reference range was not used to interpret this result as normal/abnormal . RBC (test code = 4.47 See_Comment [Automated 789-8) message] The sy stem [...] (test code = 36.4 fL 39.0-49.9 L 50528-9) RDW-CV (test code = 11.2 % 12.0-15.5 L 788-0) PLT (test code = 384 See_Comment H [Automated 777-3) message] The sy stem which generated this result transmitted reference range : 166 - 358 10*3/ ?L. The reference r dagoberto was not used to interpret this result as normal/abnormal . MPV (test code = 8.4 fL 9.5-12.9 L 74851-9) NRBC/100 WBC (test 0.0 See_Comment [Automat ed code = 2106485929) message] The system which generated this result transmitted reference range : 0.0 - 10.0 /100 WBCs. The refer ence range was not u sed to interpret th is result as normal/abnormal . NRBC x10^3 (test code See_Comment [Auto mated = 1623116938) message] The s ystem which generated this result transmitted reference range : 10*3/?L. The reference range was not used to interpret this result as normal/abnormal . GRAN MAT (NEUT) % 47.0 % (test code = 770-8) IMM GRAN % (test code 0.20 % = 5305419537) LYMPH % (test code = 44.0 % 736-9) MONO % (test code = 6.6 % 5905-5) EOS % (test code = 1.1 % 713-8) BASO % (test code = 1.1 % 706-2) GRAN MAT x10^3(ANC) 3.87 10*3/uL 1.88-7.09 (test code = 4162427329) IMM GRAN x10^3 (test 0.00-0.06 code = 6995698320) LYMPH x10^3 (test code 3.62 10*3/uL 1.32-3.29 H = 731-0) MONO x10^3 (test code 0.54 10*3/uL 0.33-0.92 = 742-7) EOS x10^3 (test code = 0.09 10*3/uL 0.03-0.39 711-2) BASO x10^3 (test code 0.09 10*3/uL 0.01-0.07 H = 704-7) Lab Interpretation Abnormal (test code = 14002-8) [facility]2022-12-05 16:49:00 Test Item Value Reference Range Interpretation Comments SURGICAL (test code = SR) R UN DATE: 08/10/22 [facility] PAGE 1 RUN TIME: 1649 Specimen Inquiry RUN USER: INTERFACE P ATIENT: LONA MARIE [facility] #: [id number] AGE/SX: 32/F ROOM: [facility] RE/02/22REG DR: Gianna Tyler MD : 92 BED: A DIS: 08/08/22 STATUS: DIS Keira TLOC: SPEC #: [id number] RECD: 08/07/22 STATUS: SOUAmalia REQ #: [id number] LAURYN: 08/07/[address]: Gianna Tyler MD ENTERED: 08/07/22 SP TYPE: SURGICAL OTHR DR: No Primary or Family PhysicianORDERED: ANATOMIC SPEC/4, SPEC TRACK, 49815/4 COPIES TO: No Primary or Family Physician Gianna Tyler MD [address] [place] [address], [address] [address] PROCEDURES: 92056 (08/07/22) TISSUES: A. BREAST, EXCISION OF DISCRETE [...] [facility] PAGE [facility] RUN TIME: 1649 Specimen Inquiry RUN USER: INTERFACE S PEC #: [id number] PATIENT: LONA MARIE #[id number] (Continued) GROSS DESCRIPTION (Continued) Ink code: Verbena-duct surface; black-remainder of the specimen. B. Received [...] Patient's name, SAPNA MI and "right breast 3:00lesion"; consists of a single fragment of yellow fat tissue that is 3 x 2 x 1.8 cm, inkedblack, serially sectioned to reveal monroe-white, fibrous tissue that takes up 90% of thewhole cut surfaces, located less than 0.1 cm from the surgical margin. Submitted in C1-5. D. Received in formalin labeled with Patient's name, HIWOT, MRN and "right breast 10:00lesion "; consists of [...] Fragment 3.XZ 08/07/22 Technical component performed at [facility] [address] , [place] [address] Unless gross only, the diagnosis is based [...] 1740RIGHT BREAST MASS. ---- Signed SIGNATURE ON Suzi Sargent 08/10/22 1649 END OF REPORT CBC W/AUTO [id number] 14:24:00 Test Item Value Reference Range Interpretation [...] NORMAL NORMAL code = PLTMR) UR HCG [id number] 18:52:00 Test Item Value Reference Range Interpretation Comments UR HCG QUAL (test code = HCGQLU) NEGATIVE NEGATIVE SURGICAL [id number] 08:42:00 Test Item Value Reference Range Interpretation Comments SURGICAL SPECIMENS (test code = SURG) --------RUN DATE: 12/31/20 [facility] - LAB PAGE 1 RUN TIME: 841 Specimen Inquiry RUN USER: INTERFACE --------PATIENT: LONA MARIE LOC: [facility] U #: [id number] AGE/SX: 30/F ROOM: [facility] RE12/26/20REG DR: Olegario Srivastava MD : 92 BED: 02 DIS: 12/26/20 STATUS: DIS Keira TLOC: -------- SPEC #: [id number] RECD: 12/26/20 STATUS: MIKI MAI #: [id number] LAURYN: 12/26/[address] [facility] [address]: Olegario Srivastava MD ENTERED: 12/26/20 SP [...] and its performance characteristics determined by the [facility]. It has not been cleared or approved by the US Food and Drug Administration. The FDA has determined that such clearance or approval is not necessary. The test is used for clinical purposes. It should not be regarded as investigational or for research. [facility] is certified under CLIA-88 (Clinical [...] CONTINUED ON NEXT PAGE --------RUN DATE: 12/31/20 [facility] - LAB PAGE 2 RUN TIME: 841 Specimen Inquiry RUN USER: INTERFACE --------SPEC #: [id number] PATIENT: CYNTHIALONA LEEN #[id number] (Continued) FINAL DIAGNOSIS (Continued) C. STOMACH, FUNDUS, BIOPSY: - OXYNTIC MUCOSA WITH REACTIVE GASTROPATHY - NEGATIVE FOR HELICOBACTER PYLORI BY IMMUNOHISTOCHEMISTRY - NO INTESTINAL METAPLASIA, DYSPLASIA, OR MALIGNANCY IS IDENTIFIED CPT: 30516 x3, 25044 x3 GROSS DESCRIPTION Received are three containers [...] -------- END OF REPORT COVID Asymptomatic IH [id number] 10:52:00 Test Item Value Reference Interpretation Comments [...] i ts performancechar acteristics were determined by [facility]. Thi s test [...] setting? Unknown? UnknownAge at collection: YBASIC METABOLIC [id number] 21:38:00 Test Item Value Reference Range Interpretation [...] CA) Reference Range Oct 2020 LIVER FUNCTION [id number] 21:38:00 Test Item Value Reference Range Interpretation [...] code = ALKP) Reference Range Oct 2020 [id number] 21:38:00 Test Item Value Reference Range Interpretation Comments LIPASE (test code = 32 U/L 12-53 N Please n ote: New LIP) Reference Range Oct 2020 CBC W/AUTO [id number] 21:24:00 Test Item Value Reference Range Interpretation [...] BA#) 0.05 x10 3/uL 0.0-0.20 N PROTHROMBIN [id number] 21:22:00 Test Item Value Reference Range Interpretation [...] 2.5-3.5recurren t systemic emboli sm. BASIC METABOLIC [id number] 23:38:00 Test Item Value Reference Range Interpretation [...] CA) Reference Range Oct 2020 LIVER FUNCTION [id number] 23:38:00 Test Item Value Reference Range Interpretation [...] code = ALKP) Reference Range Oct 2020 [id number] 23:38:00 Test Item Value Reference Range Interpretation Comments LIPASE (test code = 37 U/L 12-53 N Please n ote: New LIP) Reference Range Oct 2020 UA RFLX MICR CULT IF [id number] 23:10:00 Test Item Value Reference Range Interpretation [...] Indication for culture: RiskForSepsis-no oth srcUR HCG [id number] 23:10:00 Test Item Value Reference Range Interpretation [...] Indication for culture: RiskForSepsis-no oth srcUR HCG [id number] 23:08:00 Test Item Value Reference Range Interpretation Comments UR HCG QUAL (test code = HCGQLU) NEGATIVE Indication for culture: RiskForSepsis-no oth srcCBC W/AUTO [id number] 23:04:00 Test Item Value Reference Range Interpretation [...] BA#) 0.07 x10 3/uL 0.0-0.20 N SURGICAL [id number] 12:44:00 Test Item Value Reference Range Interpretation Comments SURGICAL SPECIMENS (test code = SURG) RUN DATE: 08/27/20 [facility] - LAB PAGE 1 RUN TIME: 1244 Specimen Inquiry RUN USER: INTERFACE PATIENT: LONA MARIE Christie LOC: P.7S POD B U #: [id number] AGE/SX: 30/F ROOM: [facility] RE08/23/20REG DR: Olegario Srivastava MD : 92 BED: 1 DIS: 08/25/20 STATUS: DIS Keira TLOC: SPEC #: [id number] RECD: 08/23/20 STATUS: MIKI MAI #: [id number] LAURYN: 08/23/[address] [facility] [address]: Olegario Srivastava MD ENTERED: 08/23/20 SP [...] METAPLASIA -NO HELICOBACTER PYLORI BY IMMUNOHISTOCHEMICAL STUDY [id number], [id number] GROSS DESCRIPTION Received in formalin labeled with the patient's name and "gastric antrum" are three tissue fragments of 0.1 to 0.2 cm, submitted in one cassette. CM/ta. Signed SIGNATURE ON FILE Wayne Andrews 08/27/20 1244 END OF REPORT UA RFLX MICR CULT IF [id number] 13:25:00 Test Item Value Reference Range Interpretation [...] Description: CLEAN CATCHUA RFLX MICR CULT IF [id number] 13:24:00 Test Item Value Reference Range Interpretation [...] culture: Suprapubic PainSpecimen Description: CLEAN CATCHBASIC METABOLIC [id number] 09:57:00 Test Item Value Reference Range Interpretation [...] mg/dL 8.8-10.2 N = CA) CBC W/AUTO [id number] 06:53:00 Test Item Value Reference Range Interpretation [...] x10 3/uL 0.0-0.20 N Novel Coronavirus 2018 [id number] 06:10:00 Test Item Value Reference Range Interpretation Comments Novel Coronavirus Not Detected Not Detected Testing wa s performed 2019 Inhouse (test using the Aptima code = COVNONPUI) SARS-CoV-2 assay.This nucleic acid amplification t est was developed and itsperformance characteristics determined by [facility]. Nucleic acid amplification t ests include [...] resul t in this assay.Performed At: [facility] [address] [id number] alessandra Wei MD Ph:[phone] BASIC METABOLIC [id number] 04:20:00 Test Item Value Reference Range Interpretation [...] code 9.1 mg/dL 8.8-10.2 N = CA) [id number] 04:20:00 Test Item Value Reference Range Interpretation Comments MAGNESIUM (test code = MAG) 1.9 mg/dL 1.4-2.6 N CBC W/AUTO [id number] 04:09:00 Test Item Value Reference Range Interpretation [...] 3/uL 0.0-0.20 N - CT ABD PELVIS W/[id number] 15:59:00 [facility] 1990 Sex: FPatient Name: LONA MAREI Unit No: [id number] EXAMS: CPT CODE: [id number] CT ABD PELVIS W/CONT 91897 Examination: Abdomen and pelvic CT with contrast [...] COOPER M.D. CC: Olegario Srivastava MD Technologist: LCAUDIA Em(R)(CT) CTDI: 25.40 DLP: 1299 Trscr Dt/Tm: 08/23/2020 (0614) by:[email or web address] Printed Date/Time: 08/23/2020 (5006) Name:CYNTHIALONA [facility] Phys: Olegario Perrin MD [address] : 1990 Age: 30 Sex: [place] [address] Loc: P.ERMS 4 Exam Date: 08/23/2020 Status: ADM IN PH: FAX: PAGE 1 Signed ReportCoronavirus 2019 nCoV [id number] 12:44:00 Test Item Value Reference Range Interpretation Comments Coronavirus 2019 Negative Negative Negative re sults should be nCoV Bedside (test treated a s presumptive code = and, ifinconsis tent with [id number]) clinical signs and symptoms or nec essaryfor [...] signs andsymptoms consistent with COVID-19. BASIC METABOLIC [id number] 11:24:00 Test Item Value Reference Range Interpretation [...] mg/dL 8.8-10.2 N = CA) LIVER FUNCTION [id number] 11:24:00 Test Item Value Reference Range Interpretation [...] code = 77 U/L 32-104 N ALKP) [id number] 11:24:00 Test Item Value Reference Range Interpretation Comments LIPASE (test code = LIP) 18 U/L 0-190 N PROTHROMBIN [id number] 10:21:00 Test Item Value Reference Range Interpretation [...] 2.5-3.5recurren t systemic emboli sm. CBC W/AUTO [id number] 10:15:00 Test Item Value Reference Range Interpretation [...] = BA#) 0.06 x10 3/uL 0.0-0.20 N [id number] 13:24:00 Test Item Value Reference Range Interpretation Comments AMYLASE (test code = RUFUS) 36 units/L 30-110 N LAB FAX IKIQDA=[id number] METABOLIC [id number] 07:32:00 Test Item Value Reference Range Interpretation [...] 88 units/L 46-116 N code = ALKP) [id number] 07:32:00 Test Item Value Reference Range Interpretation Comments LIPASE (test code = LIP) 69 units/L 73-393 L COMPREHENSIVE METABOLIC [id number] 02:36:00 Test Item Value Reference Range Interpretation [...] 46-116 N code = ALKP) CBC W/AUTO [id number] 02:09:00 Test Item Value Reference Range Interpretation [...] NORMAL code = PLTMR) - US ABDOMEN [id number] 00:24:00 [facility] 1990 Sex: F Patient Name: LONA MARIE Unit No: [id number] EXAMS: CPT CODE: [id number] US ABDOMEN COMPLETE 06426 STUDY: - US ABDOMEN COMPLETE 08/16/2020 8:29 PM Ordering Physician: Kaylah Coelho MD Patient Name: LONA MARIE MR: [id number] : 1990; Age: 30 years y/o Female [...] The visualized portions are normal.. ASCITES: [facility] NAME: LONA MARIE Radiology Department PHYS: Kaylah Knapp MD [address] : 1990 AGE: 30 SEX: F [place] [address] LOC: Jeremías.2660 A PHONE #: [phone] EXAM DATE: 08/16/2020 STATUS: ADM IN FAX #: [phone] RAD NO: Page 1 Signed Report (CONTINUED) Patient Name: LONA MARIE Unit No: [id number] EXAMS: CPT CODE: [id number] US ABDOMEN COMPLETE 86324 (Continued) No significant fluid accumulation. IMPRESSION: Limited examination secondary to patient discomfort. Question mild dependent gallbladder sludge without cholelithiasis, inflammation, or biliary ductal dilatation. Nonvisualized pancreas. SL: TPAINTER-H [id number] Reported and signed by: Deondre Bueno MD CC: Zulay Brooke MD; Kaylah Coelho MD Technologist: Pippa Figueora RDMS, RVT Probe: Trnscrbd D/ (0024) t.SDR.TP6 Orig Print D/T: S: 08/17/2020 (0027) [facility] Department PHYS: Kaylah Knapp MD [address] : 1990 AGE: 30 SEX: F [place], [place] [address] LOC: F.2880 A PHONE #: [phone] EXAM DATE: 08/16/2020 STATUS: ADM IN FAX #: [phone] RAD NO: Page 2 Signed Report Patient Name: LONA MARIE Unit No: [id number] EXAMS: CPT CODE: [id number] US ABDOMEN COMPLETE 02802 (Continued) [facility] NAME: LONA MARIE Radiology Department PHYS: Kaylah Knapp MD [address] : 1990 AGE: 30 SEX: F [place] [address] LOC: Vicki Pickett PHONE #: [phone] EXAM DATE: 08/16/2020 STATUS: ADM IN FAX #: [phone] RAD NO: Page 3 Signed Report- XR ABDOMEN 1 V 2020-08-16 21:41:[address] 1990 Sex: F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 pain, Neck pain. Neurologic Reports: Numbness. Past Medical History - Adult Stated Complaint WORSENING NEURO PAIN Allergies Coded Allergies: metoclopramide (From REGLAN) (Severe, SHORTNESS OF BREATH 08/15/20) latex (Intermediate, RASH 08/15/20) adhesive tape (Mild, RASH 08/15/20) lamotrigine (From LAMICTAL) (Mild, RASH 08/15/20 ) Penicillins (RASH 08/15/20) amoxicillin (RASH 08/15/20) doxycycline (RASH 08/15/20) ketorolac (From TORADOL) (RASH 08/15/20) tramadol (SHORTNESS OF BREATH 08/15/20) trazodone (RASH-UNKNOWN 08/15/20) Past Medical History: Reports: Seizure disorder. Past Surgical History: Reports: Appendectomy. Physical Exam Vital Signs Vital Signs First Documented: Result Date Time Pulse Ox 100 07/23 1401 B/P 147/105 07/23 1401 B/P Mean 119 07/23 1401 O2 Delivery Room air 07/23 1401 Temp 36.8 07/23 1401 Pulse 108 07/23 1401 Resp 18 07/23 1401 Last Documented: Result Date Time Pulse Ox 100 07/23 1424 B/P 145/98 07/23 1424 B/P Mean 113 07/23 1424 O2 Delivery Room air 07/23 1424 Resp 18 07/23 1424 Temp 36.8 07/23 1401 Pulse 108 07/23 1401 Review of Vital Signs Reviewed Physical Exam General/Const General/Const Awake, Alert, No acute di stress, Well appearing, Well developed , Well hydrated, Well nourished, Cooperative Distress/Hydration Distress moderate. Behavior Anxious. MS Head Head Atraumatic, Normocephalic Ears/Nose/Throat Ears/Nose/Throat Atraumatic, Airway patent, Muc ous membranes moist, Pharynx NL MS Neck Neck Atraumatic, Full range of motion Meningeal Signs/ROM Negative: Nuchal rigidity present. Resp/Chest Respiratory/Chest Atraumatic, No respiratory di stress Cardiovascular Cardiovascular Heart rate NL MS Upper Extrem Upper Extremity/MS Atraumatic Text/Dict Notes Patient reports numbness to touch of her fingers 3 4 and 5. Full range of motion vascular intact MS Lower Extrem Lower Ext/Pelvis/MS Atraumatic, Inspection NL, Full range of motion Skin Skin Atraumatic, Color NL, No rash, Warm, Dry, Intact Neurologic Neurologic Oriented X3, Speech NL, No motor def icits Sensory Deficit Upper extremity R. Psychiatric Abnormal Mood/Affect Anxious. Re-Evaluation MDM Free Text MDM Notes Free Text MDM Notes I informed the patient upon arrival but I do not have the ability to obtain an emergent MRI at this facilit y but that I could transfer her by ambulance to the [facility] emergency department for evaluation for emergent MRI. Patient refuses transfer to [facility] for evaluation MRI. Patient reports that she will present there on h er own. Patient requests pain medication while here to [facility] lessen the pain for her trip by POV to [place]. Of note patient ambulates normally and is vascul merced intact distally. Patient reports that she can feel me touch her d istal right hand but that is more dull than normal. Patient complains of shooting pain that radiates up and down the complete length of her spina l column. Treated patient's pain and gave a dose of steroids. Patient's reports that he will transport her to the emergency room that has the ability to obtain MRI. ED Course Medication(s) Ordered Medication(s) Ordered: Central Nervous System Agents Sig/Arina Start time Last Medication Dose Route Stop Time Status Admin Morphine Sulfate 4 MG X1ED STA 07/23 1401 DC SUBQ 07/23 1402 1410 Gastrointestinal Drugs Sig/Arina Start time Last Medication Dose Route Stop Time Status Admin Ondansetron HCl 4 MG X1ED STA 07/23 1401 DC PO 07/23 1402 1410 Hormones And Synthetic Substit Sig/Arina Start time Last Medication Dose Route Stop Time Status Admin Methylprednisolone 125 MG X1ED STA 07/23 1402 D C 07/23 Sodium Succinate IM 07/23 1403 1411 Patient Discharge Departure Vital Signs/Condition Vital Signs First Documented: Result Date Time Pulse Ox 100 07/23 1401 B/P 147/105 07/23 1401 B/P Mean 119 07/23 1401 O2 Delivery Room air 07/23 1401 Temp 36.8 07/23 1401 Pulse 108 07/23 1401 Resp 18 07/23 1401 Last Documented: Result Date Time Pulse Ox 100 07/23 1424 B/P 145/98 07/23 1424 B/P Mean 113 07/23 1424 O2 Delivery Room air 07/23 1424 Resp 18 07/23 1424 Temp 36.8 07/23 1401 Pulse 108 07/23 1401 All vital signs available at the time of this en try have been reviewed. Clinical Impression Clinical Impression Primary Impression: Neuropathic pain Secondary Impressions: Chron ic pain, Neuropathic pain of both legs, Right upper extremity numbness Disposition Decision Discharge )( Discharged to Home Yes )( Time 1424 )( Date 07/23/21 Discharge/Care Plan Counseled Regarding Diagnosis, Need for follow-u p, When to return to ED Patient Instructions ED Back and Neck Pain, Gene ral, ED Paraesthesias, ED Radiculopathy, Cervical, ED Sciatica Referrals Tomas Rodriguez MD: Call for appointment Discharge Note I have spoken with the patie nt and/or caregivers. I have explained the patient's condition, diagnoses and rakesh atment plan based on the information available to me at this time. I have answered the patient's and/ or caregiver's questions and addressed any concerns. The patient and/or careg travis have as good an understanding of the patient 's diagnosis, condition and treatment plan as can be expected at this point. The vital signs have bee n stable. The patient's condition is stable and appr opriate for discharge from the emergency department. The patient will pursue further outpatient evalu ation with the primary care physician or other designated or consulting phys ician as outlined in the discharge instructions. The patient and/or caregivers are agreeable to this plan of care and follow-up instructions have been exp lained in detail. The patient and/or caregivers have received these instructio ns in written format and have expressed an understanding of the discharge inst ructions. The patient and/or caregivers are aware that any significant change in condition or worsening of symptoms should prompt an immediate return to [facility] or the closest emergency department or a call to 911. at 1717 RPT #:[id number] END OF REPORT 2020-12-27 22:15:00-00:00 [facility] EMERGENCY PROVIDER REPORT REPORT#:[id number] REPORT STATUS: Signed DATE:12/27/20 TIME: 2214 PATIENT: LONA MARIE UNIT #: [id number] ROOM: BED: AGE: 30 SEX: F PCP PHYS: Alina Goldberg MD SERVICE AUTHOR: Kemar Tobar * ALL edits or amendments must be made on the EduRise/computer document * HPI-Abd Pain F Under 40 General Initial Greet Date/Time 12/27/202034 PCP GI: Dr. Escobar Presentation Chief Complaint Abdominal pain Hx Obtained From Patient Free Text HPI Notes Free Text HPI Notes PMH of gastritis, psoriatic arthritis, and multi ple prior abdominal surgeries for adhesions (s/p appendectomy, hysterectomy, a nd ). Presents with complaint of continued upper abdominal pain for the past 7 days associated with intermittent vomiting of spe cks of blood and dark stools. Reports she initially had gone to an outside ED an d had an unremarkable w/u including CT scan and labs and was told to f/u with her GI physician. Notes she followed up with Dr. Escobar who performed an upper endoscopy yest carole. I spoke with Dr. Escobar who reported that her endoscopy showe d old blood with findings c/w gastritis but no active blee ding. States he performed a biopsy to assess for h/ pylori at that time. Noted t hat patient had complained of continued pain in the post-op area and he planned to admit to [facility] and obtain a CT scan but patient left AMA prior. I asked patient why she left and she reported that she felt it was taking too long for a physician to s ee her and that nothing was being done. Reports she had continued pain overnight and that she again noticed some specks of blood in her emesis as well as sp ecks of blood in her stools. States she has been taking all of her medication s including OTC antacids as prescribed. No reported fever, chills, chest tesha n, sob, back pain, dysuria. Review of Systems ROS Statements All systems rev neg except as marked. Past Medical History - Adult Stated Complaint GI BLEEDING Allergies Coded Allergies: Latex, Natural Rubber (RASH 12/27/20) amoxicillin (RASH, THROAT SWELLING 12/27/20) doxycycline (RASH, THROAT SWELLING 12/27/20) ketorolac (From TORADOL) (RASH, THROAT SWELLING 12/27/20) metoclopramide (RASH, THROAT SWELLING 12/27/20) tramadol (RASH, THROAT SWELLING 12/27/20) Home Medications Reported Medications Acetaminophen/Codeine (Tylenol With Codeine #3 3 00/30 Mg) 1 TAB Q6H PRN PRN PAIN/CRAMPS ondansetron HCl (Zofran) Lorazepam (Ativan) Promethazine (Phenergan) Dicyclomine (Bentyl) Additional Medical History Gastritis, history of hiatal hernia, psoriatic a rthritis, prior skin cancer? Past Surgical History: Reports: Appendectomy, , Hysterectomy. Additional Surgical History Oopherectomy? Alcohol Use Denies EtOH use Smoking status: Smoking status for patients 13 years old or old er: Current some day smoker Date last smoked: 12/27/20 Packs per day: 0 Years smoked: 16 Pack years: 0 Physical Exam Vital Signs Vital Signs First Documented: Result Date Time Pulse Ox 100 12/27 2037 B/P 131/83 12/27 2037 B/P Mean 99 12/27 2037 Temp 36.4 12/27 2037 Pulse 93 12/27 2037 Resp 16 12/27 2037 O2 Delivery Room air 12/27 2237 Last Documented: Result Date Time Pulse Ox 99 12/27 2237 B/P 122/78 12/27 2237 B/P Mean 92 12/27 2237 O2 Delivery Room air 12/27 2237 Pulse 94 12/27 2237 Resp 20 12/27 2237 Temp 36.4 12/27 2037 Review of Vital Signs Reviewed Focused PE General/Const General/Const Awake, Alert, No acute distress, Cooperative, Not toxic appearing Ears/Nose/Throat Ears/Nose/Throat Airway patent, Mucous membrane s moist Resp/Chest Respiratory/Chest No respiratory distress Cardiovascular Cardiovascular Regular rhythm, Cap refi ll not delayed, Peripheral circulation NL Heart Rate/Rhythm Tachycardia (mild, rate in low 90s). Abdomen/GI Abdomen/GI Soft, No distention MS Back Back No CVA tenderness Skin Skin Warm, Dry, Intact Neurologic Neurologic Oriented X3, Speech NL, No motor def icits, No sensory deficits Interpretation Diagnostics Lab Results Interpretation Results Laboratory Tests 12/27/202058: [Embedded Image Not Available] Laboratory Tests: 12/27 2058 Chemistry Sodium (136 - 145 mmol/L) 139 Potassium (3.5 - 5.1 mmol/L) 3.6 Chloride (98 - 107 mmol/L) 106 Carbon Dioxide (20 - 31 mmol/L) 27 BUN (9 - 23 mg/dL) 12 Creatinine (0.55 - 1.02 mg/dL) 0.80 Glomerular Filtr Rate (>60) >=60 max estimate Glucose (74 - 106 mg/dL) 100 Calcium (8.7 - 10.4 mg/dL) 9.4 Total Bilirubin (0.3 - 1.2 mg/dL) 0.3 Direct Bilirubin (<0.3 mg/dL) < 0.1 AST (<34 U/L) 23 ALT (10 - 49 U/L) 22 Total Alk Phosphatase (46 - 116 U/L) 73 Total Protein (5.7 - 8.2 g/dL) 7.6 Albumin (3.2 - 4.8 g/dL) 5.3 H Lipase (12 - 53 U/L) 32 Coagulation PT (10.3 - 12.9 SECONDS) 10.9 INR (0.9 - 1.11 INR UNIT) 0.97 Hematology WBC (4.8 - 10.8 x10 3/uL) 9.8 RBC (4.20 - 5.40 x10 6/uL) 4.53 Hgb (12.0 - 16.0 g/dL) 14.0 Hct (37.0 - 47.0 %) 42.6 MCV (81.0 - 99.0 fL) 94.0 MCH (27 - 31 pg) 30.9 MCHC (33 - 36.5 G/DL) 32.9 L RDW (12.9 - 16.9 %) 12.8 L Plt Count (150 - 440 x10 3/uL) 377 MPV (8.9 - 12.4 fL) 9.2 Neut % (Auto) (42.2 - 75.2 %) 68.1 Lymph % (Auto) (20.5 - 51.1 %) 26.0 [place] % (Auto) (1.7 - 9.3 %) 4.6 Eos % (Auto) (0.0 - 7.0 %) 0.5 Baso % (Auto) (0 - 2.5 %) 0.5 Neut # (Auto) (1.80 - 7.70 x10 3/uL) 6.66 Lymph # (Auto) (1.00 - 4.80 x10 3/uL) 2.54 [place] # (Auto) (0.00 - 0.80 x10 3/uL) 0.45 Eos # (Auto) (0.00 - 0.45 x10 3/uL) 0.05 Baso # (Auto) (0.0 - 0.20 x10 3/uL) 0.05 Lab Statement Laboratory studies reviewed and considered in th e medical decision-making. Point of Care Testing Pulse Oximetry Pulse Ox % 100 On: Room air Interpretation Interpreted by me, Pulse oximetr y normal Time 2037 Re-Evaluation MDM Free Text MDM Notes Free Text MDM Notes Patient afebrile and nontoxic appearing. Noted t o be mildly tachy with heart rate in th elow 90s but normotensive. Patient wi th reports of upper abdominal pain but appears in no acute distress in room. P oseas's symptoms seem to be most c/w gastritis. I spoke with Dr. Escobar who reported that her EGD yesterday had findings c/w gastritis and did bimal w some old dried blood but no active bleeding. Notes that he did perform a bio psy to assess for h. pylori, which is likely the etiology of patient reported mild hematemesis and blood in stools. Hgb checked, found to be normal at 14.0 and patient with no signs of dizziness, weakness, light-headedness, s ob. Remainder of labs including lipase and LFTs wnl. Patient report s she had a recent CT scan of her abdomen done at an outside facility that was reportedly unr emarkable. Based on history and exam I do not suspect an acute infection or obstruction and do not think a repeat CT scan is indicated at this time. After length discussion with patient we agreed o n plan for dose of IM pain medication in the ED for temporary comfort and d ischarge home with recs to continue her GI medication regimen which include s a PPI and also nausea medications (zofran and phenergan) and prescript ion for tylenol with codeine. Given recs to f/u with Dr. Angela mtz's office for H. Pylori results. Also given strict return precautions to the ED. ED Course Medication(s) Ordered Medication(s) Ordered: Central Nervous System Agents Sig/Arina Start time Last Medication Dose Route Stop Time Status Admin Morphine Sulfate 4 MG X1ED STA 12/27 2140 DC IM 12/27 Morphine Sulfate 6 MG X1ED STA 12/28 2135 CAN IM 12/27 2136 Gastrointestinal Drugs Sig/Arina Start time Last Medication Dose Route Stop Time Status Admin Pantoprazole 80 MG X1ED STA 12/27 2037 CAN Sodium Chloride 10 ML IV 12/28 636 Pantoprazole 80 MG X1ED STA 12/27 2037 CAN Sodium Chloride 100 ML IV 12/28 636 Patient Discharge Departure Vital Signs/Condition Vital Signs First Documented: Result Date Time Pulse Ox 100 12/27 2037 B/P 131/83 12/27 2037 B/P Mean 99 12/27 2037 Temp 36.4 12/27 2037 Pulse 93 12/27 2037 Resp 16 12/27 2037 O2 Delivery Room air 12/27 2237 Last Documented: Result Date Time Pulse Ox 99 12/27 2237 B/P 122/78 12/27 2237 B/P Mean 92 12/27 2237 O2 Delivery Room air 12/27 2237 Pulse 94 12/27 2237 Resp 20 12/27 2237 Temp 36.4 12/27 2037 All vital signs available at the time of this en try have been reviewed. Clinical Impression Clinical Impression Primary Impression: Acute gastritis Disposition Decision Discharge )( Discharged to Home Yes )( Time 2223 )( Date 12/27/20 Discharge/Care Plan Counseled Regarding Diagnosis, Lab resul ts, Need for follow-up, When to return to ED Rx Drug Database Reviewed Ye s, OD risk score 480, patient with numerous prior rx 's for tylenol with codeine and norco; reports they were for prior surgeries and chronic pain related to her arthritis; moderate abuse risk potential. Patient Instructions ED Leonie ritis (Adult), ED H Pylori Infection with Peptic ... , Helicobacter Pylori Culture Referrals RETURN TO THE ER: As Needed For any worse or severe symptoms. Rik Escobar MD: 2-3 Days at 2322 RPT #:[id number] END OF REPORT 2020-12-26 11:38:00-00:00 [id number] [facility] [address] [place] [address] PATIENT NAME: LONA MARIE ADMIT DATE: ACCOUNT NO: [id number] ROOM NO: AGE: 30 REPORT TYPE: ENDOSCOPY REPORT SEX: F ADMITTING PHYSICIAN: ATTENDING PHYSICIAN:Rik Escobar MD [facility] Gastroenterology Patient Name: Cynthia Lona Attending MD: Rik giron MD Procedure Date: 12/26/2020 11:38 AM 80 Date of : [birth year] Admit Type: Preadmit Age: 30 Room: Room 1 Gender: Female Note Status: Finalized Procedure: Upper GI endoscopy Pre Procedure Diagnosis: Epigastric abdominal pa in Assistants: Rik Escobar MD, Crystal Auguste (Nurse), Young Raygoza, Bond Underwriter, ANDRIA TIMMONS CRNA Referring MD: Rik Escobar MD Anesthesia: Monitored Anesthesia Care Procedure: Pre-Anesthesia Assessment: - Prior to the procedure, a History and Physica l was performed, and patient medications and allergies were reviewed. The patient is compete nt. The risks and benefits of the procedure and the sedation options and risks were discussed with the patient. All questions were answered and inform ed consent was obtained. Patient identification an d proposed procedure were verified by the physici an, the nurse, the anesthesiologist, the anesthetis t and the vending service technician in the pre-procedure area i n the procedure room in the endoscopy suite. Mental Status Examination: normal. Airway Examination: normal oropharyngeal airway and neck mobility. Respiratory Examination: clear to auscultation. CV Examination: normal. ASA Grade Assessment: II - A patient with mild systemic disease. After revie wing the risks and benefits, the patient was deemed in satisfactory condition to undergo the procedure . The anesthesia plan was to use monitored anesth esia care (MAC). Immediately prior to administration of medications, the patient was re-assessed for adequacy to receive sedatives. The heart rate, respiratory rate, oxygen saturations, blood pressure, adequacy of pulmonary ventilation, an d response to care were monitored throughout the PATIENT NAME: LONA MARIE ACCOUNT #: [id number] procedure. The physical status of the patient was re-assessed after the procedure. The benefits, risks, and alternatives to the procedure were discussed and informed consent was obtained from the patient. I've assesed the pat ient on this date and reviewed the medical history, drug history, and previous anesthesia experience. Af ter obtaining informed consent, the scope was passe d under direct vision. Throughout the procedure, the patient's blood pressure, pulse, and oxygen saturations were monitored continuously.s were monitored continuously. The Endoscope was introduced through the mouth, and advanced to t he third part of duodenum. The upper GI endoscopy was accomplished without difficulty. The patient tolerated the procedure well. Post Procedure Findings: The hypopharynx was normal. The upper third of the esophagus, middle third of the esophagus and lower third of the esophagus were normal. The Z-line was variable and was found at the ga stroesophageal junction. A small hiatal hernia was present. Moderate inflammation characterized by adherent blood, congestion (edema), erosions, erythema and aphthous ulcera tions was found in the entire examined stomach. Biopsies were taken wi th a cold forceps for histology. Estimated blood loss was minimal. The examined duodenum was normal. Complications: No immediate complications. Estim ated blood loss: Minimal. Estimated Blood Loss: Post Procedure Diagnosis: - Normal hypopharynx. - Normal upper third of esophagus, middle third of esophagus and lower third of esophagus. - Z-line variable, at the gastroesophageal machelle ction. - Small hiatal hernia. - Gastritis. Biopsied. - Normal examined duodenum. Recommendation: - Discharge patient to home (via wheelchair). - Resume previous diet. - Continue present medications. - Await pathology results. - Return to my office in 1 week. iRk Escobar MD Rik Escobar MD 12/26/2020 12:40:22 PM This report has been signed electronically. Number of Addenda: 0 Note Initiated On: 12/26/2020 11:38 AM PATIENT NAME: LONA MARIE ACCOUNT #: [id number] Procedure Date: 12/26/2020 11:38:36 AM Provation {[id number]}.pdf ProVation FT PDF at 1240 PATIENT NAME: LONA MARIE ACCOUNT #: [id number] 2020-12-22 22:14:00-00:00 [facility] ([facility]) EMERGENCY PROVIDER REPORT REPORT#:[id number] REPORT STATUS: Signed DATE:12/22/20 TIME: 2213 PATIENT: LONA MARIE UNIT #: [id number] ROOM: BED: AGE: 30 SEX: F PCP PHYS: No Primary or Family Ph ysician SERVICE AUTHOR: Jayme Rodríguez MD * ALL edits or amendments must be made on the el [employer]/computer document * HPI-Abd Pain F Under 40 Free Text HPI Notes Free Text HPI Notes 30-year-old female with a past medical h istory of psoriatic arthritis presents emergency department for evaluation of nausea an d vomiting. Patient states onset of this was several days ago. Ruba ent states symptoms have progressively got worse so he decided to come to the emergency department for further evaluation. Patient states she was recently eval uated in urgent care and discharged home with support duyen therapy. Patient states that she was advised if symptoms continue to go to the emergency departm ent for further evaluation. Patient states that she went to the different ER yesterday and was advised that she needs to follow-up with her GI doctor. Donnell nt states the pain that symptoms got worse so decided to come here for e valuation. Patient was seen here back in August 2020 f or similar symptoms an EGD was done and was advised to follow-up outpatient. Patient denies any feve rs, chills or any other associated symptoms at this time. Patient states there was specks of blood inside her throw up. General Confirmed Patient Yes Patient Type New patient Initial Greet Date/Time 12/22/202147 Presentation Chief Complaint Nausea, Vomiting moderate Risk-Abd Pain F Under 40 )( Ectopic Risk factors reviewed Review of Systems ROS Statements All systems rev neg except as marked. Basic Review of Systems Basic ROS EYES: No redness, ENT: No sore throat, HEM: No bleeding/bruising, SKIN : No rash, NEURO: No change MS, NEURO: No focal deficit, PSYCH: NL thought content Focused Review of Systems Constitutional Denies: Chills, Fever, Lethargy. Respiratory Denies: Cough, non-productive, Cough, productive , Shortness of breath. Cardiovascular Denies: Chest pain, Syncope. GI Reports: Abdominal pain, Nausea, Vomiting. Female Denies: Dysuria, Flank pain, Pelvic pain. Musculoskeletal Denies: Back pain, Extremity pain. Past Medical History - Adult Stated Complaint LOWER ABD PAIN, VOMITING BLOOD Allergies Coded Allergies: Penicillins (Severe, rash 08/23/20) adhesive tape (Severe, raya 08/23/20) amoxicillin (Severe, rash 08/23/20) doxycycline (Severe, rash 08/23/20) ketorolac (From TORADOL) (Severe, hives 08/23/20 ) lamotrigine (From LAMICTAL) (Severe, rash, sob, chest pain 08/23/20) latex (Severe, raya 08/23/20) metoclopramide (From REGLAN) (Severe, rash 08/23) tramadol (Severe, hives 08/23/20) trazodone (Severe, rash 08/23/20) Home Medications Active Scripts Pregabalin (Lyrica) 50 MG PO TID Pregabalin (Lyrica) 50 MG PO TID #90 CAP Prov: 08/25/[address] (Protonix) 40 MG PO DAILY Pantoprazole Dr (Protonix) 40 MG PO DAILY #30 T AB Prov: 08/25/20 Amitriptyline (Elavil) 50 MG PO BEDTIME Amitriptyline (Elavil) 50 MG PO BEDTIME #30 TAB Prov: 08/25/20 Ondansetron Odt (Zofran Odt) 4 MG Q6H Ondansetron Odt (Zofran Odt) 4 MG Q6H #50 TAB Prov: 08/25/20 Pregabalin (Lyrica) 50 MG PO TID Pregabalin (Lyrica) 50 MG PO TID #90 CAP Prov: 08/25/20 Meclizine (Antivert) 25 MG PO Q8H PRN DIZZINESS Meclizine (Antivert) 25 MG PO Q8H PRN DIZZINESS #50 TAB Prov: 08/25/20 Reported Medications Hydrocodone/Apap ([place] 10/325) 1 TAB PO Q4H PRN PAIN SCALE 7-10 Lorazepam (Ativan) Additional Medical History Psoriatic Arthritis Past Surgical History: Reports: Appendectomy, Hysterectomy. Alcohol Use Alcohol use Drug Use Denies recreational drugs Smoking status: Smoking status for patients 13 years old or old er: Unknown,if ever smoked Physical Exam Vital Signs Vital Signs First Documented: Result Date Time Pulse Ox 100 12/22 2146 B/P 148/89 12/22 2146 B/P Mean 108 12/22 2146 O2 Delivery Room air 12/22 2146 Temp 36.6 12/22 2146 Pulse 89 12/22 2146 Resp 16 12/22 2146 Last Documented: Result Date Time Pulse Ox 100 12/22 2146 B/P 148/89 12/22 2146 B/P Mean 108 12/22 2146 O2 Delivery Room air 12/22 2146 Temp 36.6 12/22 2146 Pulse 89 12/22 2146 Resp 16 12/22 2146 Review of Vital Signs Reviewed Basic Physical Exam Basic PE HEAD: Atraumatic/NC, EYES: PERRL, conj clear, ENT: Membranes moist, NECK: Supple, EXT: No gross abnormality, SKIN: No rashes, warm/dry, NEURO: alert oriented, NEURO: gross movement NL, PSYCH: NL t hought content Focused PE General/Const General/Const Awake, Alert, Well appearing MS Head Head Normocephalic Eyes Eyes PERRL Ears/Nose/Throat Ears/Nose/Throat Airway patent, Mucous membrane s moist, Pharynx NL Resp/Chest Respiratory/Chest Breath sounds NL, Breath soun ds = bilat, No respiratory distress, No rales, No rhonchi, No wheezing Cardiovascular Cardiovascular Heart rate NL, Regular rhythm, H eart sounds NL, Peripheral circulation NL Abdomen/GI Abdomen/GI Soft, Non-tender, McBurney's non-ten fany, No guarding, No rebound, BS normoactive, No distention, No hernia, No pal pable mass MS Back Back Inspection NL, Non-tender, No CVA tenderne ss Skin Skin Color NL, Warm, Dry, Turgor NL Genitourinary Female Genitourinary External genitalia NL, No bleeding, No discharge, No cervical motion tend, Os closed, No adnexal mass , No adnexal tenderness, No uterine enlargement, No uterine mass, No lesions or rash Rectum Rectum/Perineum Blood - occult heme neg, Qualit y control passed, No gross blood, No fissures, No hemorrhoids, Sphincter to ne NL Neurologic Neurologic Oriented X3, Speech NL, No motor def icits, No sensory deficits Interpretation Diagnostics Lab Results Interpretation Results Laboratory Tests 12/22/202254: [Embedded Image Not Available] Laboratory Tests: 12/22 Chemistry Sodium (136 - 145 mmol/L) 137 Potassium (3.5 - 5.1 mmol/L) 3.9 Chloride (98 - 107 mmol/L) 107 Carbon Dioxide (20 - 31 mmol/L) 22 BUN (9 - 23 mg/dL) 7 L Creatinine (0.55 - 1.02 mg/dL) 0.80 Glomerular Filtr Rate (>60) >=60 max estimate Glucose (74 - 106 mg/dL) 94 Calcium (8.7 - 10.4 mg/dL) 9.2 Total Bilirubin (0.3 - 1.2 mg/dL) 0.5 Direct Bilirubin (<0.3 mg/dL) 0.1 AST (<34 U/L) 20 ALT (10 - 49 U/L) 18 Total Alk Phosphatase (46 - 116 U/L) 74 Total Protein (5.7 - 8.2 g/dL) 7.4 Albumin (3.2 - 4.8 g/dL) 5.1 H Lipase (12 - 53 U/L) 37 Hematology WBC (4.8 - 10.8 x10 3/uL) 10.2 RBC (4.20 - 5.40 x10 6/uL) 4.47 Hgb (12.0 - 16.0 g/dL) 14.0 Hct (37.0 - 47.0 %) 42.0 MCV (81.0 - 99.0 fL) 94.0 MCH (27 - 31 pg) 31.3 H MCHC (33 - 36.5 G/DL) 33.3 RDW (12.9 - 16.9 %) 12.9 Plt Count (150 - 440 x10 3/uL) 328 MPV (8.9 - 12.4 fL) 9.1 Neut % (Auto) (42.2 - 75.2 %) 67.1 Lymph % (Auto) (20.5 - 51.1 %) 24.3 [place] % (Auto) (1.7 - 9.3 %) 6.4 Eos % (Auto) (0.0 - 7.0 %) 1.2 Baso % (Auto) (0 - 2.5 %) 0.7 Neut # (Auto) (1.80 - 7.70 x10 3/uL) 6.87 Lymph # (Auto) (1.00 - 4.80 x10 3/uL) 2.49 [place] # (Auto) (0.00 - 0.80 x10 3/uL) 0.66 Eos # (Auto) (0.00 - 0.45 x10 3/uL) 0.12 Baso # (Auto) (0.0 - 0.20 x10 3/uL) 0.07 Urines Urine Color (YELLOW DISCRIPT) YELLOW Urine Appearance (CLEAR DISCRIPT) CLEAR Urine pH (5.0 - 9.0) 5.5 Ur Specific [place] (1.005 - 1.030) 1.025 Urine Protein (NEGATIVE mg/dL) NEGATIVE Urine Glucose (UA) (NEGATIVE mg/dL) NEGATIVE Urine Ketones (NEGATIVE mg/dL) NEGATIVE Urine Blood (NEGATIVE) NEGATIVE Urine Nitrite (NEGATIVE) NEGATIVE Urine Bilirubin (NEGATIVE) NEGATIVE Urine Urobilinogen (0.2 - 1.0 mg/dL) 0.2 Ur Leukocyte Esterase (NEGATIVE) NEGATIVE Urine RBC (0 - 2 #RBC/HPF) 0-2 Urine WBC (0 - 2 #WBC/HPF) NONE SEEN Ur Squamous Epith Cells (NONE - TRACE /LPF) OC CASIONAL Urine Bacteria (NONE - TRACE /HPF) NONE SEEN Urine HCG, Qual (NEGATIVE) NEGATIVE ECG #1 Interpretation ECG Documented in MUSE Yes Date 12/22/20 Time 2202 Interpreted by ED physician NL ECG Interpretation Normal rate Rate 81 Re-Evaluation MDM Free Text MDM Notes Free Text MDM Notes On reevaluation patient is r esting comfortably in the room in no acute distress. Patient is not around 1 cm inside the ED. Donnell nagel was given a p.o. challenge and passed inside the ED. Patient was ad vised to be discharged home and needed to follow-up with her GI doctor tomorrow. On discharge pt began to ask for pain meds to go home with. Pt was advised that she had a [employer] score of 480 and would nee d to ask her PCP or Dr. Escobar for further pain medication. Pt was advised I could not prescribe medications out from the ED due to her score. ED Course Medication(s) Ordered Medication(s) Ordered: Autonomic Drugs Sig/Arina Start time Last Medication Dose Route Stop Time Status Admin Dicyclomine HCl 20 MG X1ED STA 12/22 2199 DC IM 12/22 2200 Central Nervous System Agents Sig/Arina Start time Last Medication Dose Route Stop Time Status Admin Hydrocodone Bitart/ 1 TAB X1ED STA 12/22 2314 D C 12/22 Acetaminophen PO 12/225 2319 Electrolytic, Caloric, And Jair Sig/Arina Start time Last Medication Dose Route Stop Time Status Admin Sodium Chloride 1,000 ML X1ED STA 12/22 2152 DC 12/22 IV 12/22 2252 2307 Gastrointestinal Drugs Sig/Arina Start time Last Medication Dose Route Stop Time Status Admin Ondansetron HCl 4 MG X1ED STA 12/22 2152 DC IV 12/22 215 2307 Patient Discharge Departure Vital Signs/Condition Vital Signs First Documented: Result Date Time Pulse Ox 100 12/22 2146 B/P 148/89 12/22 2146 B/P Mean 108 12/22 2146 O2 Delivery Room air 12/22 2146 Temp 36.6 12/22 2146 Pulse 89 12/22 2146 Resp 16 12/22 2146 Last Documented: Result Date Time Pulse Ox 100 12/22 2146 B/P 148/89 12/22 2146 B/P Mean 108 12/22 2146 O2 Delivery Room air 12/22 2146 Temp 36.6 12/22 2146 Pulse 89 12/22 2146 Resp 16 12/22 2146 All vital signs available at the time of this en try have been reviewed. Clinical Impression Clinical Impression Primary Impression: Nausea vomiting Secondary Impressions: Abdominal pain Disposition Decision Discharge )( Discharged to Home Yes )( Time 2355 )( Date 12/22/20 Discharge/Care Plan Counseled Regarding Diagnosis, Lab resul ts, Need for follow-up, When to return to ED Rx Drug Database Reviewed Brian s Pt had a score of 480 and will not be discharged home with opioids due to this score. (Auto) Prescriptions Current Visit Scripts Dicyclomine (Bentyl) 20 MG PO QID Dicyclomine (Bentyl) 20 MG PO QID #30 TABS Ondansetron Odt (Zofran Odt) 4 MG PO Q6H PRN PRN NAUSEA/VOMITING Ondansetron Odt (Zofran Odt) 4 MG PO Q6H PRN MN N NAUSEA/VOMITING #15 TABS Patient Instructions Abdominal Pain, ED Diet for Vomiting or Diarrhea Adult Referrals Rik Escobar MD Discharge Note I have spoken with the patie nt and/or caregivers. I have explained the patient's condition, diagnoses and rakesh atment plan based on the information available to me at this time. I have answered the patient's and/ or caregiver's questions and addressed any concerns. The patient and/or careg travis have as good an understanding of the patient 's diagnosis, condition and treatment plan as can be expected at this point. The vital signs have bee n stable. The patient's condition is stable and appr opriate for discharge from the emergency department. The patient will pursue further outpatient evalu ation with the primary care physician or other designated or consulting phys ician as outlined in the discharge instructions. The patient and/or caregivers are agreeable to this plan of care and follow-up instructions have been exp lained in detail. The patient and/or caregivers have received these instructio ns in written format and have expressed an understanding of the discharge inst ructions. The patient and/or caregivers are aware that any significant change in condition or worsening of symptoms should prompt an immediate return to [facility] or the closest emergency department or a call to 911. Electronically Signed by Jayme Rodríguez MD on at 0016 RPT #:[id number] END OF REPORT 2020-12-22 22:03:00-00:00 [id number] [place] [id number] PATIENT NAME: LONA MARIE ADMIT DATE: ACCOUNT NO: [id number] ROOM NO: AGE: 30 REPORT TYPE: eELECTROCARDIOGRAM SEX: F ADMITTING PHYSICIAN: ATTENDING PHYSICIAN: Order: [id number] Test Reason : Test Date/Time Stamp: WedDec 22 2020 22:03:30 Blood Pressure : / mmHG Vent. Rate : 081 BPM Atrial Rate : 081 BPM P-R Int : 142 ms QRS Dur : 068 ms QT Int : 352 ms P-R-T Axes : 048 074 046 degree s QTc Int : 408 ms Normal sinus rhythm Normal ECG No previous ECGs available Confirmed by LIBRADO MAS MD ([id number]) on 12/24/19 5:40:11 PM Referred By: Jayme Rodríguez Confirmed by:LIBRADO MAS MD Electronically Signed by Librado Mas MD on 0 12/23/20 at 1748 PATIENT NAME: LONA MARIE ACCOUNT #: [id number] 2020-08-25 11:44:00-00:00 [id number] [place] [address] PATIENT NAME: LONA MARIE ADMIT DATE: ACCOUNT NO: [id number] ROOM NO: P.0724 AGE: 30 REPORT TYPE: PROGRESS NOTE SEX: F ADMITTING PHYSICIAN:Olegario Srivastava MD ATTENDING PHYSICIAN:Olegario Srivastava MD DATE: 08/25/2020 PAIN MANAGEMENT PROGRESS NOTE CONSULTING PHYSICIAN: Naheed Taylor DO SPECIALITY: Pain management. SUBJECTIVE: Ms. Marie is still reporting abdomi nal pain. Discussed the case with Dr. Srivastava. The plan is to have workup fur ther as an outpatient. She reports that she was able to eat, but she threw it all up. Reporting the pain to be sharp, going from the lower abdominal area to the mid and to the epigastric area. Reports that to be constant. It occurs even when she is not eating. She is not reporting any frequency in ur ination or dysuria. PHYSICAL EXAMINATION: VITAL SIGNS: Blood pressure 98/63, respirations 18, heart rate 69, and temperature 36.6. GENERAL: Awake and alert, some distress secondar y to pain and discomfort. LUNGS: Normal respiratory rate and effort. ABDOMEN: Soft. No rebound or guarding. EXTREMITIES: No clubbing or cyanosis. ASSESSMENT: Ongoing abdominal pain of uncertain etiology. PLAN: I am going to increase the hydrocodone fro m 5 to 10. Morphine has been discontinued. I discussed this with Dr. Srivastava. We will see if she can maintain p.o. intake and if the hydrocodone at increase strength is better able to control her pain. Prescription was put in the chart that she wished to be discharged. Low suspicion for interstitial cysti tis, but with ongoing pain, I think she needs close followup with gastroentero logy and urology. It appears she has been seen by [facility]HA[facility] at [facility] to follow up may be warranted also. Dictated By: Naheed Taylor DO WT: PN:KARLIE/RDAHA/SUSANNA Conf#: [id number]/DID#: [id number] Authenticated by Naheed Taylor DO On 11:59:25 AM PATIENT NAME: LONA MARIE [address]5084 at 1159 PATIENT NAME: LONA MARIE [id number] 2020-08-25 11:42:00-00:00 [id number] [facility] [address] [place] [address] [place] [address] PATIENT NAME: LONA MARIE ADMIT DATE: ACCOUNT NO: [id number] ROOM NO: [facility] AGE: 30 REPORT TYPE: CONSULTATION SEX: F ADMITTING PHYSICIAN:Olegario Srivastava MD ATTENDING PHYSICIAN:Olegario Srivastava MD CONSULTATION DATE: 08/24/2020 CONSULTING PHYSICIAN: Naheed Taylor DO CONSULTING PHYSICIAN: Naheed Taylor DO SPECIALTY: PAIN MANAGEMENT CONSULTATION. VISIT TIME: Approximately 11:00 a.m. CHIEF COMPLAINT: Abdominal pain. I was asked by Dr. Srivastava to evaluate the patient. HISTORY OF PRESENTING ILLNES S: A 30-year-old female reporting pain in the lower abdominal area ascending to the mid and all the way to the epigastric area, associated with nausea and vomiting. Also, repor uche dark stools. She was at [facility] and w as transferred here to Dr. Escobar service. Pain reporting ongoing pain that could be severe, req uiring morphine pretty much around the clock. She states that she had a hyst erectomy in April. This pain started at the beginning of this month. She reports it to be somewhat constant. PAST MEDICAL HISTORY: Psoriatic arthritis. PAST SURGICAL HISTORY: Appendectomy and hysterec marcel. SOCIAL HISTORY: Does not use tobacco. ALLERGIES: NUMEROUS ALLERGIES INCLUDING ADHESIVE TAPE, AMOXICILLIN, DOXYCYCLINE, TORADOL, LATEX, METOCLOPRAMIDE, PEN ICILLIN, TRAMADOL, TRAZODONE, LAMOTRIGINE. MEDICATIONS: Per NOV. PHYSICAL EXAMINATION: VITAL SIGNS: Blood pressure 125/84, respirations 18, heart rate 61. GENERAL: Awake and alert, some distress secondar y to pain and discomfort. LUNGS: Normal respiratory rate and effort. ABDOMEN: Soft. No rebound or guarding. EXTREMITIES: No clubbing or cyanosis. Moving all extremities. SKIN: No rash. ASSESSMENT: Abdominal pain of uncertain etiology . PATIENT NAME: LONA MARIE [id number] PLAN: I discussed the case with Dr. Riaz guerra. She was able to eat, although she does have vomiting and nausea reported. Encourag ed to use the hydrocodone. We will see how she does. If she can tolerate p.o., the plan is for her to have outpatient workup. She has been seen by F[facility] UNHAIRER at [facility], Dr. Escobar, the machine sander. She may need urology als o. Dictated By: Naheed Taylor DO WT: CON:P.HIM/[email or web address]/NTS Conf#: [id number]/DID#: [id number] Authenticated by Naheed Taylor DO On 11:59:26 AM at 1159 PATIENT NAME: LONA MARIE [id number] 2020-08-23 13:16:00-00:00 [id number] [facility] [address] [place] [address] PATIENT NAME: LONA MARIE ADMIT DATE: ACCOUNT NO: [id number] [facility] 30 REPORT TYPE: ENDOSCOPY REPORT SEX: F ADMITTING PHYSICIAN:Olegario Srivastava MD ATTENDING PHYSICIAN:Olegario Srivastava MD [facility] Gastroenterology Patient Name: Cynthia Zamorano Attending MD: Rik giron MD Procedure Date: 08/23/2020 1:16 PM 80 Date of : 06/07 Admit Type: Inpatient Age: 30 Room: Room 2 Gender: Female Note Status: Finalized Procedure: Upper GI endoscopy Pre Procedure Diagnosis: Epigastric abdominal pa in Assistants: Rik Escobar MD, Crystal Auguste (Nurse), Jennifer Varela, Bond Underwriter, Whitney vora MD Referring MD: Jose Luis Ly Md Anesthesia: Monitored Anesthesia Care Procedure: Pre-Anesthesia Assessment: - Prior to the procedure, a History and Physica l was performed, and patient medications and allergies were reviewed. The patient is compete nt. The risks and benefits of the procedure and the sedation options and risks were discussed with the patient. All questions were answered and inform ed consent was obtained. Patient identification an d proposed procedure were verified by the physici an, the nurse, the anesthesiologist, the anesthetis t and the vending service technician in the pre-procedure area in the procedure room in the endoscopy suite. Mental Status Examination: alert and oriented. Airway Examination: normal oropharyngeal airway and ne ck mobility. Respiratory Examination: clear to auscultation. CV Examination: normal. ASA Grad e Assessment: II - A patient with mild systemic disease. After reviewing the risks and benefits , the patient was deemed in satisfactory conditio n to undergo the procedure. The anesthesia plan was to use monitored anesthesia care (MAC). Immediate ly prior to administration of medications, the pat ient was re-assessed for adequacy to receive sedativ es. The heart rate, respiratory rate, oxygen saturations, blood pressure, adequacy of pulmon chiara ventilation, and response to care were monitor ed PATIENT NAME: LONA MARIE [id number] throughout the procedure. The physical status of the patient was re-assessed after the procedure . The benefits, risks, and alternatives to the procedure were discussed and informed consent w as obtained from the patient. I've assesed the pat ient on this date and reviewed the medical history, drug history, and previous anesthesia experience. Af ter obtaining informed consent, the scope was passe d under direct vision. Throughout the procedure, the patient's blood pressure, pulse, and oxygen saturations were monitored continuously.s were monitored continuously. The was introduced thro ugh the mouth, and advanced to the third part of duodenum. The upper GI endoscopy was accomplish ed without difficulty. The patient tolerated the procedure well. Post Procedure Findings: The upper third of the esophagus, middle third of the esophagus and lower third of the esophagus were normal. The Z-line was variable and was found at the ga stroesophageal junction. A small hiatal hernia was present. Mild inflammation characterized by erythema and granularity was found in the gastric antrum. Biopsies were taken with a cold forceps for histology. Estimated blood loss was minimal. The examined duodenum was normal. Complications: No immediate complications. Estim ated blood loss: Minimal. Estimated Blood Loss: Post Procedure Diagnosis: - Normal upper third o f esophagus, middle third of esophagus and lower third of esophagus. - Z-line variable, at the gastroesophageal junc tion. - Small hiatal hernia. - Gastritis. Biopsied. - Normal examined duodenum. Recommendation: - Return patient to [facility] for ongoing care. - Full liquid diet. - Continue present medications. - Await pathology results. Rik Escobar MD Rik Escobar MD 08/23/2020 2:00:54 PM This report has been signed electronically. Number of Addenda: 0 Note Initiated On: 08/23/2020 1:16 PM Procedure Date: 08/23/2020 1:16:08 PM Provation {[id number]}.pdf ProVation FT PDF PATIENT NAME: AILEEN MARIESTACI Soriano [id number] at 1401 PATIENT NAME: LONA MARIE [id number] 2020-08-23 09:24:00-00:00 [facility] ([facility] EMERGENCY PROVIDER REPORT REPORT#:[id number] REPORT STATUS: Signed DATE:08/23/20 TIME: 923 PATIENT: LONA MARIE UNIT #: [id number] ROOM: [facility] BED: 1 AGE: 30 SEX: F PCP PHYS: Self Referred SERVICE AUTHOR: Jose Luis Ly MD * ALL edits or amendments must be made on the el [employer]/computer document * HPI-General Illness Free Text HPI Notes Free Text HPI Notes 30-year-old female complaining of vomiting dark matter and having dark stool since August 13. Patient says she saw Christie Escobar in the office 2 days ago and he told her to come to the ER yesterday to b e admitted. She says she saw Dr. Escobar in the hallway a few minutes ago and he told her she was being admitted. She reports feeling mildly weak. She d enies other complaints. She was admitted at [facility] a few days ago for the same and told she did not have a gynecologic cause of her bleeding. General Initial Greet Date/Time 08/23/20 0918 Presentation Chief Complaint gi bleed Review of Systems Free Text ROS Notes Free Text ROS Notes Review of Systems All systems reviewed and negative except as lolita ed. GEN: Reports no fever, reports no malaise, repor ts gen weakness EYES: Reports no blurred vision, reports no eye pain, reports no visual loss EAR: Reports no ear pain, reports no hearing los s, reports no tinnitus NOSE: Reports no bleeding, reports no nasal hardeep estion THROAT: Reports no pain, reports no swelling, re ports no toothache RESP: Reports no cough, reports no SOB, reports no wheezing CV: Reports no CP, reports no AWAD, reports no pa lpitations GI: Reports no abd pain, reports no diarrhea, re ports no vomiting : Reports no dysuria, reports no lesions, repo rts no discharge MS: Reports no back pain, reports no neck pain, reports no extremity pain HEME: Reports no bleeding, reports no bruising ENDO: Reports no wt change, reports no polyuria, reports no polydipsia SKIN: Reports no abrasions, reports no contusion s, reports no rash ALLERGY: Reports no itching, reports no allergic reaction NEURO: Reports no focal weakness, reports no HINOJOSA, reports no SZ PSYCH: Reports no anxiety, reports no delusions, reports no hallucinations Past Medical History - Adult Stated Complaint ABDOMINAL [id number] INED Allergies Coded Allergies: Penicillins (Severe, rash 08/23/20) adhesive tape (Severe, raya 08/23/20) amoxicillin (Severe, rash 08/23/20) doxycycline (Severe, rash 08/23/20) ketorolac (From TORADOL) (Severe, hives 08/23/20 ) lamotrigine (From LAMICTAL) (Severe, rash, sob, chest pain 08/23/20) latex (Severe, raya 08/23/20) metoclopramide (From REGLAN) (Severe, rash 08/23) tramadol (Severe, hives 08/23/20) trazodone (Severe, rash 08/23/20) Home Medications Reported Medications Oxycodone (Oxyir) 5 MG PO Q6H PRN PRN pain Lorazepam (Ativan) Additional Medical History Psoriatic Arthritis Past Surgical History: Reports: Appendectomy, Hysterectomy. Pt reports no Fam Hx pert to chief complaint. Alcohol Use Alcohol use Drug Use Denies recreational drugs Smoking status for patients 13 years old or olde r: Current some day smoker Physical Exam Vital Signs Vital Signs First Documented: Result Date Time Pulse Ox 99 08/23 922 B/P 134/74 08/23 922 B/P Mean 94 08/23 922 O2 Delivery Room air 08/23 922 Temp 36.6 08/23 922 Pulse 97 08/23 922 Resp 12 08/23 922 Last Documented: Result Date Time Pulse Ox 98 08/23 1005 B/P 134/74 08/23 922 B/P Mean 94 08/23 922 O2 Delivery Room air 08/23 922 Temp 36.6 08/23 922 Pulse 97 08/23 922 Resp 12 08/23 922 Review of Vital Signs Reviewed Free Text PE Notes Free Text PE Notes General: Well-appearing, well-nourished no appar ent distress Head: Normocephalic atraumatic Eyes: EOMI, PERRLA, normal conjunctiva, no scler al icterus, HEENT: Airway patent, mucous membranes moist, ph arynx normal. Respiratory/chest: Breath sounds normal, breath sounds equal bilaterally, no respiratory distress, no rales, no rhonchi, no w heezing Cardiovascular: Heart rate normal, regular rhyth m, heart sounds normal, peripheral circulation normal Abdomen/GI: Soft, no guardin g, no rebound, no distention, no hernia, no palpable mass, no pulsatile mass, nontender, MS back: Normal inspection, non-tender, no costo vertebral angle tenderness. Skin: Color normal, warm, dry, normal turgor. Extremities: No edema, full range of motion, hitesh rovascularly intact. Neuro: Alert and oriented x3, cranial ne rves II through XII grossly intact, no motor deficit, no sensory deficit, no cerebellar signs, normal gait. Psych: Normal affect, normal mood, normal concen tration, normal insight, Re-Evaluation MDM ED Course Medication(s) Ordered Medication(s) Ordered: Electrolytic, Caloric, And Jair Sig/Arina Start time Last Medication Dose Route Stop Time Status Admin Sodium Chloride 1,000 ML X1ED STA 08/23 0932 AC IV 08/23 1031 Gastrointestinal Drugs Sig/Arina Start time Last Medication Dose Route Stop Time Status Admin Famotidine 20 MG X1ED STA 08/23 0932 AC Sodium Chloride 10 ML IV 08/23 2131 Consultation Consultation Referral/Consult Name Rik Escobar MD Requested Call Time 0930 Requested Call Date 08/23/20 Call Returned Time 1000 Call Returned Date 08/23/20 Bead Maker will do egd obs to shannon Patient Discharge Departure Vital Signs/Condition Vital Signs First Documented: Result Date Time Pulse Ox 99 08/23 0922 B/P 134/74 08/23 0922 B/P Mean 94 08/23 0922 O2 Delivery Room air 08/23 922 Temp 36.6 08/23 0922 Pulse 97 08/23 922 Resp 12 08/23 922 Last Documented: Result Date Time Pulse Ox 98 08/23 1005 B/P 134/74 08/23 0922 B/P Mean 94 08/23 0922 O2 Delivery Room air 08/23 922 Temp 36.6 08/23 0922 Pulse 97 08/23 922 Resp 12 08/23 922 All vital signs available at the time of this en try have been reviewed. Clinical Impression Clinical Impression Primary Impression: Hemoptysis Disposition Decision Admit Admit Physician Name Olegario Srivastava MD )( Admission Accepts Yes )( Accepted Time 1007 )( Accepted Date 08/23/20 Electronically Signed by Jose Luis Ly MD on 08/07 09/25 at 2100 RPT #:[id number] END OF REPORT 2020-08-21 13:35:00-00:00 [facility] ([facility]) Clinical Note REPORT#:[id number] REPORT STATUS: Signed DATE:08/21/20 TIME: 1335 PATIENT: LONA MARIE UNIT #: [id number] ROOM/BED: 2660-A : 92 AGE: 30 SEX: F ATTEND: Austin Brooke MD ADM AUTHOR: Germania Tabor MD * ALL edits or amendments must be made on the el [employer]/computer document * Clinical Note Note: When I wrote the prescriptions for this patient, the pharmacy ([facility] [place] [phone]) called to tell me they could refill the ativan as written, but not the oxycodone. I told them I would be at the [facility] Tuesday 08/21 ( now today) and that she could get one more r x for the oxycodone to make up for the refill. (I wrote for 3 days worth, and a refill, not wanting to give the patient too many pills at one time). Pt called me yesterday. I returned her call today [phone]. The patient requesting refills of both Ativan and oxycodone. I told her the ativan should have a refill and I confirmed this with the pharmacy. The patient is going to see GI today at a building near [place]. She said she can stop by to pic k up the prescription for oxycodone. I have written for oxycodone 5 mg i po q 6 hrs, #1 2, no refills. The pt states she has tried to call the pain specialist for an appt, but has not received any call back. I have texted the pain s pecialist regarding an appt. The patient informed of no more refills from me. Electronically Signed by Germania Tabor MD on at 1341 RPT #:[id number] END OF REPORT 2020-08-17 14:31:00-00:00 [id number] [facility] [address], [place] [address] PATIENT NAME: LONA MARIE ADMIT DATE: 08/15/20 ACCOUNT NO: [id number] ROOM NO: [facility] AGE: 30 SEX: F ADMITTING PHYSICIAN: Zulay Brooke MD ATTENDING PHYSICIAN: Zulay Brooke MD ADMISSION DATE: 08/15/2020 DISCHARGE DATE: 08/17/2020 ADMITTING DIAGNOSES: Ruptured ovarian cyst, urin chiara tract infection, abdominal/pelvic pain, narcotic use, heartburn. ADMITTING SERVICE: RE EXAMINER hospitalist. CONSULTATIONS: RE EXAMINER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 08/15/20) Home Medications Discontinued Scripts oxyCODONE HCL/ACETAMINOPHEN (PERCOCET 5/325 MG) 1 TAB PO Q4H PRN PRN MODERATE PAIN oxyCODONE HCL/ACETAMINOPHEN (PERCOCET 5/325 MG) 1 TAB PO Q4H PRN PRN MODERATE PAIN #20 TAB Prov: 07/09/18 DC: 08/15/20 1540 Therapy completed PROMETHAZINE (PHENERGAN) 12.5 MG PO Q6H PRN NAUS EA PROMETHAZINE (PHENERGAN) 12.5 MG PO Q6H PRN MONI SEA #30 TAB Prov: 07/09/18 DC: 08/15/20 1540 Therapy completed CYCLOBENZAPRINE HCL (FLEXERIL) 5 MG PO TID PRN P RN ABDOMINAL CRAMPS CYCLOBENZAPRINE HCL (FLEXERIL) 5 MG PO TID PRN PRN ABDOMINAL CRAMPS #30 TAB Prov: 07/09/18 DC: 08/15/20 1540 Therapy completed Reported Medications ACETAMINOPHEN/CODEINE (TYLENOL WITH CODE INE #3 300/30 MG) 1 TAB PO Q4H PRN PRN ACUTE PAIN Discontinued Reported Medications PNV WITHOUT CA/FE FUM/FA (-U) (Unknown D ose) PO DAILY levETIRAcetam (KEPPRA) 500 MG PO BID Review of Nursing Notes Rev avail, and agree Physical Exam Vital Signs Vital Signs First Documented: Result Date Time Pulse Ox 100 12/ 1506 B/P 163/92 12/10 1506 B/P Mean 115 12/10 1506 O2 Delivery Room air / 1506 Temp 36.9 12/10 1506 Pulse 110 12/10 1506 Resp 20 12/ 1506 Last Documented: Result Date Time Pulse Ox 100 12/10 1506 B/P 163/92 12/ 1506 B/P Mean 115 12/10 1506 O2 Delivery Room air 12/ 1506 Temp 36.9 12/10 1506 Pulse 110 12/10 1506 Resp 20 / 1506 Review of Vital Signs Reviewed Basic Physical Exam Basic PE GEN: Well appearing /NAD, HEAD: Atraumatic/NC, EYES: PERRL, conj clear, ENT: Membranes moist, NECK: Supple, RESP: No res p distress, CV: Reg rate rhythm, EXT: No gross abnormality, SKIN: No rash es, warm/dry, NEURO: alert oriented, NEURO: gross movement NL, PSYCH: NL th ought content Physical Exam General/Const General/Const Awake, Alert Abdomen/GI Abdomen/GI Soft Tenderness/Guarding/Rebound Tender suprapubic. Interpretation Diagnostics Lab Results Interpretation Results Laboratory Tests 08/15/20 1535: [Embedded Image Not Available] Laboratory Tests: 08/15 08/15 1635 1535 Chemistry Sodium (135 - 145 mEq/L) 138 Potassium (3.5 - 5.0 mEq/L) 3.7 Chloride (100 - 115 mEq/L) 104 Carbon Dioxide (22 - 31 mEq/L) 27 Anion Gap (10 - 20) 10.50 BUN (7 - 18 mg/dL) 10 Creatinine (0.5 - 1.0 mg/dL) 1.0 Glomerular Filtr Rate (>60 ml/min) 66 Glucose (65 - 110 mg/dL) 106 Calcium (8.4 - 10.2 mg/dL) 8.9 Hematology WBC (6.6 - 12.1 K/mm3) 9.0 RBC (3.45 - 5.01 M/mm3) 4.09 Hgb (10.7 - 13.9 g/dL) 12.4 Hct (32.1 - 42.1 %) 38.9 MCV (84.1 - 94.8 fL) 95 H MCH (27 - 35 pg) 30.3 MCHC (32.2 - 34.1 gm/dL) 31.9 L RDW (12.4 - 16.5 %) 13.0 Plt Count (133 - 385 K/mm3) 327 MPV (9.1 - 12.7 fl) 9.2 Neut % (Auto) (56.5 - 79.4 %) 65.7 Lymph % (Auto) (14.3 - 34.3 %) 24.1 [place] % (Auto) (5.1 - 10.4 %) 8.3 Eos % (Auto) (0.1 - 3.0 %) 1.0 Baso % (Auto) (0.1 - 1.0 %) 0.6 Neut # (Auto) (K/mm3) 5.9 Lymph # (Auto) (K/mm3) 2.2 [place] # (Auto) (K/mm3) 0.7 Eos # (Auto) (K/mm3) 0.09 Baso # (Auto) (K/mm3) 0.1 Miscellaneous Maternal Serum HCG <1 Urines Urine Color (YELLOW) YELLOW Urine Appearance (CLEAR) CLEAR Urine pH (5 - 9) 5.0 Ur Specific [place] (1.001 - 1.035) >1.035 H Urine Protein (NEG) NEGATIVE Urine Glucose (UA) (NEG) NEGATIVE Urine Ketones (NEG) NEGATIVE Urine Blood (NEG) 2+ H Urine Nitrite (NEG) NEG Urine Bilirubin (NEG) NEGATIVE Urine Urobilinogen (NEG mg/dL) NEGATIVE Ur Leukocyte Esterase (NEG) NEG Urine RBC (NONE SEEN #/hpf) 0-2 Urine WBC (NONE SEEN #/hpf) 0-2 Ur Epithelial Cells (RARE - FEW #/HPF) RARE Urine Mucus (NONE SEEN) RARE Lab Imaging Statement Laboratory radiographic studies reviewed and con sidered in the medical decision-making. Patient Discharge Departure Vital Signs/Condition Condition Stable Clinical Impression Clinical Impression Primary Impression: Pelvic pain Pt/Provider Handoff Shift Change Note This patient's care has been transferred to the incoming physician. We discussed : the patient's chief complaint; labs an d imaging that have been completed and those that are still pending; procedures that hinojosa ve been completed and those remaining to be done; any treatment provided and the patient's response to treatment; input from consultants (if any); the remaining treatment plan. The incoming physician will follow up on all pending labs and imaging, make any necessary changes to the cur rent impression and/or treatment plan and provide a final disposition. Handoff Note This patient's care has been transferred to and accepted by []. We discussed: the patient's chief complaint; labs and imaging that have been completed and those that are still pending; procedures that hinojosa ve been completed and those remaining to be done; any treatment provided and the patient's response to treatment; any significant change in con dition; input from consultants if any; the treatment plan prior to the transfer of care. The accepting physician will follow up on all pending lab s and imaging and make any necessary changes to the current impression and/or treatment plan. The [facility] physician is now responsible for the patient's care and final dis position. Care Transferred to Dr Amanda Care Transferred at 1800 Discussed Complaint(s) Yes Laboratory Evaluation Lab evaluation discussed Imaging Studies Ordered, not yet done at 1741 RPT #:[id number] END OF REPORT 2020-08-15 15:05:00-00:00 [facility] [place] ([facility]) EMERGENCY PROVIDER REPORT REPORT#:[id number] REPORT STATUS: Signed DATE:08/15/20 TIME: 1505 PATIENT: LONA MARIE UNIT #: [id number] ROOM/BED: AGE: 30 SEX: F PCP PHYS: No Primary or Family P hysician SERVICE AUTHOR: Andressa Razo MD * ALL edits or amendments must be made on the el [employer]/computer document * See Addendum Andressa Razo I 08/15/20 1505: HPI-General Illness Provider in Triage Greet Note I have greeted and performed a focused rapid initial assessment of this patient. A comprehensive ED assessment and evaluation of the patient, analysis of all test results, and completion of the medical deci irasema-making process will be conducted by additional ED providers. HPI Chief Complaint Abdominal pain Onset Occurred Sudden, Today Severity Pain level 10 out of 10 (ongoing since am sharp pain) PE General/Const Mild distress HEENT Atraumatic, Normocephalic Respiratory/Chest No respiratory distress Abdomen/GI Tenderness present (radiation to low er) MSE Not Complete The medical screening exam i s not complete. Further evaluation and/or treatment is required. The patient will be re-directed to the emergency department. Past Medical History - Adult Past Medical History: Reports: Seizure disorder. Past Surgical History: Reports: Appendectomy. Re-Evaluation MDM ED Course Medication(s) Ordered Medication(s) Ordered: Central Nervous System Agents Sig/Arina Start time Last Medication Dose Route Stop Time Status Admin Hydromorphone HCl 1 MG X1ED STA 12/10 1652 DCr 12/10 IV 12/10 1653 1724 Morphine Sulfate 4 MG X1ED STA 12/10 1503 DCr 1 2/10 IV 12/10 1504 1553 Electrolytic, Caloric, And Jair Sig/Arina Start time Last Medication Dose Route Stop Time Status Admin Sodium Chloride 1,000 ML X1ED STA 12/10 1653 DC 12/10 IV 12/10 1654 1726 Sodium Chloride 1,000 ML X1ED STA 12/10 1515 DC 12/10 IV 12/10 1516 1552 Gastrointestinal Drugs Sig/Arina Start time Last Medication Dose Route Stop Time Status Admin Ondansetron HCl 4 MG X1ED STA 12/10 1503 DC 12/ 10 IV 12/10 1504 1553 Patient Discharge Departure Vital Signs/Condition Vital Signs First Documented: Result Date Time Pulse Ox 100 12/10 1506 B/P 163/92 12/10 1506 B/P Mean 115 12/10 1506 O2 Delivery Room air 12/10 1506 Temp 36.9 12/10 1506 Pulse 110 12/10 1506 Resp 20 12/10 1506 Last Documented: Result Date Time Pulse Ox 100 12/10 1506 B/P 163/92 12/10 1506 B/P Mean 115 12/10 1506 O2 Delivery Room air 12/10 1506 Temp 36.9 12/10 1506 Pulse 110 12/10 1506 Resp 20 12/10 1506 All vital signs available at the time of this en try have been reviewed. Ashley Rader 08/15/20 1534: HPI-General Illness Free Text HPI Notes Free Text HPI Notes pelvic pain General Initial Greet Date/Time 08/15/20 1503 Presentation Chief Complaint Abdominal pain Hx Obtained From Patient Sudden in Onset? No Onset Occurred Today Symptom Duration Constant Progression since Onset Constant Exacerbated by Nothing Relieved by Nothing Context Additional Context Patient with PMhx of seizure disorder no on meds comes in complaining of lower abdominal pain radiating to the upper abdomen, pain is intense, 06/15 associated with 2 episodes of vomiting dark content, patient went to [facility] ER and she got CT abdomen that showed ovarian cyst, patient has hi story of appendectomy and hysterectomy Review of Systems ROS Statements All systems rev neg except as marked. Review of Systems Constitutional Denies: Chills, Fatigue, Lethargy. Eyes Denies: Discharge R, Discharge L. Ears/Nose/Throat Denies: Ear ringing R, Ear ringing L. Respiratory Denies: Shortness of breath. Cardiovascular Denies: Parox nocturnal dyspnea. GI Reports: Abdominal pain, Nausea, Vomiting. Denie s: Diarrhea, Hematemesis. Female Reports: Pelvic pain. Denies: , Vaginal bleeding - abnl, Vaginal discharge. Musculoskeletal Denies: Joint pain, Lumbar pain. Hematologic Denies: Bruising. Endocrine Denies: Polyphagia. Skin Denies: Erythema, Jaundice. Allergy/Immun Denies: Sneezing. Neurologic Denies: Dizziness. Psychiatric Reports: Anxiety. Denies: Agitation. Past Medical History - Adult Stated Complaint ABDOMINAL PAIN,DIZZINESS,VOMITI NG,V Allergies Coded Allergies: metoclopramide (From REGLAN) (Severe, SHORTNESS OF BREATH 08/15/20) latex (Intermediate, RASH 08/15/20) adhesive tape (Mild, RASH 08/15/20) lamotrigine (From LAMICTAL) (Mild, RASH 08/15/20 ) Penicillins (RASH 08/15/20) amoxicillin (RASH 08/15/20) doxycycline (RASH 08/15/20) ketorolac (From TORADOL) (RASH 08/15/20) tramadol (SHORTNESS OF BREATH 08/15/20) trazodone (RASH-UNKNOWN 08/15/20) Home Medications Discontinued Scripts oxyCODONE HCL/ACETAMINOPHEN (PERCOCET 5/325 MG) 1 TAB PO Q4H PRN PRN MODERATE PAIN oxyCODONE HCL/ACETAMINOPHEN (PERCOCET 5/325 MG) 1 TAB PO Q4H PRN PRN MODERATE PAIN #20 TAB Prov: 07/09/18 DC: 08/15/20 1540 Therapy completed PROMETHAZINE (PHENERGAN) 12.5 MG PO Q6H PRN NAUS EA PROMETHAZINE (PHENERGAN) 12.5 MG PO Q6H PRN MONI SEA #30 TAB Prov: 07/09/18 DC: 08/15/20 1540 Therapy completed CYCLOBENZAPRINE HCL (FLEXERIL) 5 MG PO TID PRN P RN ABDOMINAL CRAMPS CYCLOBENZAPRINE HCL (FLEXERIL) 5 MG PO TID PRN PRN ABDOMINAL CRAMPS #30 TAB Prov: 07/09/18 DC: 08/15/20 1540 Therapy completed Reported Medications ACETAMINOPHEN/CODEINE (TYLENOL WITH CODE INE #3 300/30 MG) 1 TAB PO Q4H PRN PRN ACUTE PAIN Discontinued Reported Medications PNV WITHOUT CA/FE FUM/FA (-U) (Unknown D ose) PO DAILY levETIRAcetam (KEPPRA) 500 MG PO BID Review of Nursing Notes Rev avail, and agree Physical Exam Vital Signs Vital Signs First Documented: Result Date Time Pulse Ox 100 12/10 1506 B/P 163/92 12/10 1506 B/P Mean 115 12/10 1506 O2 Delivery Room air 12/10 1506 Temp 36.9 12/10 1506 Pulse 110 12/10 1506 Resp 20 12/10 1506 Last Documented: Result Date Time Pulse Ox 100 12/10 1506 B/P 163/92 12/10 1506 B/P Mean 115 12/10 1506 O2 Delivery Room air 12/10 1506 Temp 36.9 12/10 1506 Pulse 110 12/10 1506 Resp 20 12/10 1506 Review of Vital Signs Reviewed Basic Physical Exam Basic PE GEN: Well appearing /NAD, HEAD: Atraumatic/NC, EYES: PERRL, conj clear, ENT: Membranes moist, NECK: Supple, RESP: No res p distress, CV: Reg rate rhythm, EXT: No gross abnormality, SKIN: No rash es, warm/dry, NEURO: alert oriented, NEURO: gross movement NL, PSYCH: NL th ought content Physical Exam General/Const General/Const Awake, Alert Abdomen/GI Abdomen/GI Soft Tenderness/Guarding/Rebound Tender suprapubic. Interpretation Diagnostics Lab Results Interpretation Results Laboratory Tests 08/15/20 2085: [Embedded Image Not Available] Laboratory Tests: 08/15 08/15 1635 1535 Chemistry Sodium (135 - 145 mEq/L) 138 Potassium (3.5 - 5.0 mEq/L) 3.7 Chloride (100 - 115 mEq/L) 104 Carbon Dioxide (22 - 31 mEq/L) 27 Anion Gap (10 - 20) 10.50 BUN (7 - 18 mg/dL) 10 Creatinine (0.5 - 1.0 mg/dL) 1.0 Glomerular Filtr Rate (>60 ml/min) 66 Glucose (65 - 110 mg/dL) 106 Calcium (8.4 - 10.2 mg/dL) 8.9 Hematology WBC (6.6 - 12.1 K/mm3) 9.0 RBC (3.45 - 5.01 M/mm3) 4.09 Hgb (10.7 - 13.9 g/dL) 12.4 Hct (32.1 - 42.1 %) 38.9 MCV (84.1 - 94.8 fL) 95 H MCH (27 - 35 pg) 30.3 MCHC (32.2 - 34.1 gm/dL) 31.9 L RDW (12.4 - 16.5 %) 13.0 Plt Count (133 - 385 K/mm3) 327 MPV (9.1 - 12.7 fl) 9.2 Neut % (Auto) (56.5 - 79.4 %) 65.7 Lymph % (Auto) (14.3 - 34.3 %) 24.1 [place] % (Auto) (5.1 - 10.4 %) 8.3 Eos % (Auto) (0.1 - 3.0 %) 1.0 Baso % (Auto) (0.1 - 1.0 %) 0.6 Neut # (Auto) (K/mm3) 5.9 Lymph # (Auto) (K/mm3) 2.2 [place] # (Auto) (K/mm3) 0.7 Eos # (Auto) (K/mm3) 0.09 Baso # (Auto) (K/mm3) 0.1 Miscellaneous Maternal Serum HCG <1 Urines Urine Color (YELLOW) YELLOW Urine Appearance (CLEAR) CLEAR Urine pH (5 - 9) 5.0 Ur Specific [place] (1.001 - 1.035) >1.035 H Urine Protein (NEG) NEGATIVE Urine Glucose (UA) (NEG) NEGATIVE Urine Ketones (NEG) NEGATIVE Urine Blood (NEG) 2+ H Urine Nitrite (NEG) NEG Urine Bilirubin (NEG) NEGATIVE Urine Urobilinogen (NEG mg/dL) NEGATIVE Ur Leukocyte Esterase (NEG) NEG Urine RBC (NONE SEEN #/hpf) 0-2 Urine WBC (NONE SEEN #/hpf) 0-2 Ur Epithelial Cells (RARE - FEW #/HPF) RARE Urine Mucus (NONE SEEN) RARE Lab Imaging Statement Laboratory radiographic studies reviewed and con sidered in the medical decision-making. Patient Discharge Departure Vital Signs/Condition Condition Stable Clinical Impression Clinical Impression Primary Impression: Pelvic pain Pt/Provider Handoff Shift Change Note This patient's care has been transferred to the incoming physician. We discussed : the patient's chief complaint; labs an d imaging that have been completed and those that are still pending; procedures that hinojosa ve been completed and those remaining to be done; any treatment provided and the patient's response to treatment; input from consultants (if any); the remaining treatment plan. The incoming physician will follow up on all pending labs and imaging, make any necessary changes to the cur rent impression and/or treatment plan and provide a final disposition. Handoff Note This patient's care has been transferred to and accepted by []. We discussed: the patient's chief complaint; labs and imaging that have been completed and those that are still pending; procedures that hinojosa ve been completed and those remaining to be done; any treatment provided and the patient's response to treatment; any significant change in con dition; input from consultants if any; the treatment plan prior to the transfer of care. The accepting physician will follow up on all pending lab s and imaging and make any necessary changes to the current impression and/or treatment plan. The [facility] physician is now responsible for the patient's care and final dis position. Care Transferred to Dr Amanda Care Transferred at 1800 Discussed Complaint(s) Yes Laboratory Evaluation Lab evaluation discussed Imaging Studies Ordered, not yet done at 1741 Addendum 1: 08/15/20 1806 by José Rader MD for Thomas Chamberlain MD Patient Addendum Addendum at 1806 RPT #:[id number] END OF REPORT 2020-08-15 15:05:00-00:00 [facility] [place] ([facility]) EMERGENCY PROVIDER REPORT REPORT#:[id number] REPORT STATUS: Signed DATE:08/15/20 TIME: 1505 PATIENT: LONA MARIE UNIT #: [id number] ROOM/BED: AGE: 30 SEX: F PCP PHYS: No Primary or Family Ph ysician SERVICE AUTHOR: Andressa Razo MD * ALL edits or amendments must be made on the [employer]/computer document * See Addendum Andressa Razo I 08/15/20 1505: HPI-General Illness Provider in Triage Greet Note I have greeted and performed a focused rapid initial assessment of this patient. A comprehensive ED assessment and evaluation of the patient, analysis of all test results, and completion of the medical deci irasema-making process will be conducted by additional ED providers. HPI Chief Complaint Abdominal pain Onset Occurred Sudden, Today Severity Pain level 10 out of 10 (ongoing since am sharp pain) PE General/Const Mild distress HEENT Atraumatic, Normocephalic Respiratory/Chest No respiratory distress Abdomen/GI Tenderness present (radiation to low er) MSE Not Complete The medical screening exam i s not complete. Further evaluation and/or treatment is required. The patient will be re-directed to the emergency department. Past Medical History - Adult Past Medical History: Reports: Seizure disorder. Past Surgical History: Reports: Appendectomy. Re-Evaluation MDM ED Course Medication(s) Ordered Medication(s) Ordered: Central Nervous System Agents Sig/Arina Start time Last Medication Dose Route Stop Time Status Admin Hydromorphone HCl 1 MG X1ED STA 08/15 1652 DCr 12/10 IV 08/15 1653 1724 Morphine Sulfate 4 MG X1ED STA 08/15 1503 DCr 1 / IV 08/15 1504 1553 Electrolytic, Caloric, And Jair Sig/Arina Start time Last Medication Dose Route Stop Time Status Admin Sodium Chloride 1,000 ML X1ED STA 12/10 1653 DC 12/10 IV 12/10 1654 1726 Sodium Chloride 1,000 ML X1ED STA 12/10 1515 DC 12/10 IV 12/10 1516 1552 Gastrointestinal Drugs Sig/Arina Start time Last Medication Dose Route Stop Time Status Admin Ondansetron HCl 4 MG X1ED STA 12/10 1503 DC 12/ 10 IV 12/10 1504 1553 Patient Discharge Departure Vital Signs/Condition Vital Signs First Documented: Result Date Time Pulse Ox 100 12/10 1506 B/P 163/92 12/10 1506 B/P Mean 115 12/10 1506 O2 Delivery Room air 12/10 1506 Temp 36.9 12/10 1506 Pulse 110 12/10 1506 Resp 20 12/10 1506 Last Documented: Result Date Time Pulse Ox 100 12/10 1506 B/P 163/92 12/10 1506 B/P Mean 115 12/10 1506 O2 Delivery Room air 12/10 1506 Temp 36.9 12/10 1506 Pulse 110 12/10 1506 Resp 20 12/10 1506 All vital signs available at the time of this en try have been reviewed. Ashley Rader 08/15/20 1534: HPI-General Illness Free Text HPI Notes Free Text HPI Notes pelvic pain General Initial Greet Date/Time 08/15/20 1503 Presentation Chief Complaint Abdominal pain Hx Obtained From Patient Sudden in Onset? No Onset Occurred Today Symptom Duration Constant Progression since Onset Constant Exacerbated by Nothing Relieved by Nothing Context Additional Context Patient with PMhx of seizure disorder no on meds comes in complaining of lower abdominal pain radiating to the upper abdomen, pain is intense, /10 associated with 2 episodes of vomiting dark content, patient went to [facility] ER and she got CT abdomen that showed ovarian cyst, patient has hi story of appendectomy and hysterectomy Review of Systems ROS Statements All systems rev neg except as marked. Review of Systems Constitutional Denies: Chills, Fatigue, Lethargy. Eyes Denies: Discharge R, Discharge L. Ears/Nose/Throat Denies: Ear ringing R, Ear ringing L. Respiratory Denies: Shortness of breath. Cardiovascular Denies: Parox nocturnal dyspnea. GI Reports: Abdominal pain, Nausea, Vomiting. Denie s: Diarrhea, Hematemesis. Female Reports: Pelvic pain. Denies: , Vaginal bleeding - abnl, Vaginal discharge. Musculoskeletal Denies: Joint pain, Lumbar pain. Hematologic Denies: Bruising. Endocrine Denies: Polyphagia. Skin Denies: Erythema, Jaundice. Allergy/Immun Denies: Sneezing. Neurologic Denies: Dizziness. Psychiatric Reports: Anxiety. Denies: Agitation. Past Medical History - Adult Stated Complaint ABDOMINAL PAIN,DIZZINESS,VOMITI NG,V Allergies Coded Allergies: metoclopramide (From REGLAN) (Severe, SHORTNESS OF BREATH 08/15/20) latex (Intermediate, RASH 08/15/20) adhesive tape (Mild, RASH 08/15/20) lamotrigine (From LAMICTAL) (Mild, RASH 08/15/20 ) Penicillins (RASH 08/15/20) amoxicillin (RASH 08/15/20) doxycycline (RASH 08/15/20) ketorolac (From TORADOL) (RASH 08/15/20) tramadol (SHORTNESS OF BREATH 08/15/20) trazodone (RASH-UNKNOWN 08/15/20) Home Medications Discontinued Scripts oxyCODONE HCL/ACETAMINOPHEN (PERCOCET 5/325 MG) 1 TAB PO Q4H PRN PRN MODERATE PAIN oxyCODONE HCL/ACETAMINOPHEN (PERCOCET 5/325 MG) 1 TAB PO Q4H PRN PRN MODERATE PAIN #20 TAB Prov: 07/09/18 DC: 08/15/20 1540 Therapy completed PROMETHAZINE (PHENERGAN) 12.5 MG PO Q6H PRN NAUS EA PROMETHAZINE (PHENERGAN) 12.5 MG PO Q6H PRN MONI SEA #30 TAB Prov: 07/09/18 DC: 08/15/20 1540 Therapy completed CYCLOBENZAPRINE HCL (FLEXERIL) 5 MG PO TID PRN P RN ABDOMINAL CRAMPS CYCLOBENZAPRINE HCL (FLEXERIL) 5 MG PO TID PRN PRN ABDOMINAL CRAMPS #30 TAB Prov: 07/09/18 DC: 08/15/20 1540 Therapy completed Reported Medications ACETAMINOPHEN/CODEINE (TYLENOL WITH CODE INE #3 300/30 MG) 1 TAB PO Q4H PRN PRN ACUTE PAIN Discontinued Reported Medications PNV WITHOUT CA/FE FUM/FA (-U) (Unknown D ose) PO DAILY levETIRAcetam (KEPPRA) 500 MG PO BID Review of Nursing Notes Rev avail, and agree Physical Exam Vital Signs Vital Signs First Documented: Result Date Time Pulse Ox 100 12/ 1506 B/P 163/92 12/ 1506 B/P Mean 115 12/10 1506 O2 Delivery Room air / 1506 Temp 36.9 12/10 1506 Pulse 110 12/10 1506 Resp 20 / 1506 Last Documented: Result Date Time Pulse Ox 100 12/10 1506 B/P 163/92 12/10 1506 B/P Mean 115 12/10 1506 O2 Delivery Room air 12/ 1506 Temp 36.9 12/10 1506 Pulse 110 12/10 1506 Resp 20 / 1506 Review of Vital Signs Reviewed Basic Physical Exam Basic PE GEN: Well appearing /NAD, HEAD: Atraumatic/NC, EYES: PERRL, conj clear, ENT: Membranes moist, NECK: Supple, RESP: No res p distress, CV: Reg rate rhythm, EXT: No gross abnormality, SKIN: No rash es, warm/dry, NEURO: alert oriented, NEURO: gross movement NL, PSYCH: NL th ought content Physical Exam General/Const General/Const Awake, Alert Abdomen/GI Abdomen/GI Soft Tenderness/Guarding/Rebound Tender suprapubic. Interpretation Diagnostics Lab Results Interpretation Results Laboratory Tests 08/15/20 1535: [Embedded Image Not Available] Laboratory Tests: 08/15 08/15 1635 1535 Chemistry Sodium (135 - 145 mEq/L) 138 Potassium (3.5 - 5.0 mEq/L) 3.7 Chloride (100 - 115 mEq/L) 104 Carbon Dioxide (22 - 31 mEq/L) 27 Anion Gap (10 - 20) 10.50 BUN (7 - 18 mg/dL) 10 Creatinine (0.5 - 1.0 mg/dL) 1.0 Glomerular Filtr Rate (>60 ml/min) 66 Glucose (65 - 110 mg/dL) 106 Calcium (8.4 - 10.2 mg/dL) 8.9 Hematology WBC (6.6 - 12.1 K/mm3) 9.0 RBC (3.45 - 5.01 M/mm3) 4.09 Hgb (10.7 - 13.9 g/dL) 12.4 Hct (32.1 - 42.1 %) 38.9 MCV (84.1 - 94.8 fL) 95 H MCH (27 - 35 pg) 30.3 MCHC (32.2 - 34.1 gm/dL) 31.9 L RDW (12.4 - 16.5 %) 13.0 Plt Count (133 - 385 K/mm3) 327 MPV (9.1 - 12.7 fl) 9.2 Neut % (Auto) (56.5 - 79.4 %) 65.7 Lymph % (Auto) (14.3 - 34.3 %) 24.1 [place] % (Auto) (5.1 - 10.4 %) 8.3 Eos % (Auto) (0.1 - 3.0 %) 1.0 Baso % (Auto) (0.1 - 1.0 %) 0.6 Neut # (Auto) (K/mm3) 5.9 Lymph # (Auto) (K/mm3) 2.2 [place] # (Auto) (K/mm3) 0.7 Eos # (Auto) (K/mm3) 0.09 Baso # (Auto) (K/mm3) 0.1 Miscellaneous Maternal Serum HCG <1 Urines Urine Color (YELLOW) YELLOW Urine Appearance (CLEAR) CLEAR Urine pH (5 - 9) 5.0 Ur Specific [place] (1.001 - 1.035) >1.035 H Urine Protein (NEG) NEGATIVE Urine Glucose (UA) (NEG) NEGATIVE Urine Ketones (NEG) NEGATIVE Urine Blood (NEG) 2+ H Urine Nitrite (NEG) NEG Urine Bilirubin (NEG) NEGATIVE Urine Urobilinogen (NEG mg/dL) NEGATIVE Ur Leukocyte Esterase (NEG) NEG Urine RBC (NONE SEEN #/hpf) 0-2 Urine WBC (NONE SEEN #/hpf) 0-2 Ur Epithelial Cells (RARE - FEW #/HPF) RARE Urine Mucus (NONE SEEN) RARE Lab Imaging Statement Laboratory radiographic studies reviewed and con sidered in the medical decision-making. Patient Discharge Departure Vital Signs/Condition Condition Stable Clinical Impression Clinical Impression Primary Impression: Pelvic pain Pt/Provider Handoff Shift Change Note This patient's care has been transferred to the incoming physician. We discussed : the patient's chief complaint; labs an d imaging that have been completed and those that are still pending; procedures that hinojosa ve been completed and those remaining to be done; any treatment provided and the patient's response to treatment; input from consultants (if any); the remaining treatment plan. The incoming physician will follow up on all pending labs and imaging, make any necessary changes to the cur rent impression and/or treatment plan and provide a final disposition. Handoff Note This patient's care has been transferred to and accepted by ]. We discussed: the patient's chief complaint; labs and imaging that have been completed and those that are still pending; procedures that hinojosa ve been completed and those remaining to be done; any treatment provided and the patient's response to treatment; any significant change in con dition; input from consultants if any; the treatment plan prior to the transfer of care. The accepting physician will follow up on all pending lab s and imaging and make any necessary changes to the current impression and/or treatment plan. The [facility] physician is now responsible for the patient's care and final dis position. Care Transferred to Dr Amanda Care Transferred at 1800 Discussed Complaint(s) Yes Laboratory Evaluation Lab evaluation discussed Imaging Studies Ordered, not yet done at 1741 Addendum 1: 08/15/201805 by José Rader MD for Thomas Chamberlain MD Patient Addendum Addendum at 1806 Addendum 2: 08/15/201806 by José Rader MD Patient Addendum Addendum at 1807 RPT #:[id number] END OF REPORT 2020-08-15 15:05:00-00:00 [facility] [place] ([facility]) EMERGENCY PROVIDER REPORT REPORT#:[id number] REPORT STATUS: Signed DATE:08/15/20 TIME: 150 PATIENT: LONA MARIE UNIT #: [id number] ROOM/BED: AGE: 30 SEX: F PCP PHYS: No Primary or Family Ph ysician SERVICE AUTHOR: Andressa Razo MD * ALL edits or amendments must be made on the el [employer]/computer document * See Addendum Andressa Razo [place] 08/15/20 1505: HPI-General Illness Provider in Triage Greet Note I have greeted and performed a focused rapid initial assessment of this patient. A comprehensive ED assessment and evaluation of the patient, analysis of all test results, and completion of the medical deci irasema-making process will be conducted by additional ED providers. HPI Chief Complaint Abdominal pain Onset Occurred Sudden, Today Severity Pain level 10 out of 10 (ongoing since am sharp pain) PE General/Const Mild distress HEENT Atraumatic, Normocephalic Respiratory/Chest No respiratory distress Abdomen/GI Tenderness present (radiation to low er) MSE Not Complete The medical screening exam i s not complete. Further evaluation and/or treatment is required. The patient will be re-directed to the emergency department. Past Medical History - Adult Past Medical History: Reports: Seizure disorder. Past Surgical History: Reports: Appendectomy. Re-Evaluation MDM ED Course Medication(s) Ordered Medication(s) Ordered: Central Nervous System Agents Sig/Arina Start time Last Medication Dose Route Stop Time Status Admin Hydromorphone HCl 1 MG X1ED STA 1210 1652 DCr 12/10 IV 12/10 1653 1724 Morphine Sulfate 4 MG X1ED STA / 1503 DCr 1 / IV 12/10 1504 1553 Electrolytic, Caloric, And Jair Sig/Arina Start time Last Medication Dose Route Stop Time Status Admin Sodium Chloride 1,000 ML X1ED STA 12/10 1653 DC 12/10 IV 12/10 1654 1726 Sodium Chloride 1,000 ML X1ED STA 12/10 1515 D C 12/10 IV 12/10 1516 1552 Gastrointestinal Drugs Sig/Arina Start time Last Medication Dose Route Stop Time Status Admin Ondansetron HCl 4 MG X1ED STA 12/10 1503 DC 12/ 10 IV 12/10 1504 1553 Patient Discharge Departure Vital Signs/Condition Vital Signs First Documented: Result Date Time Pulse Ox 100 12/10 1506 B/P 163/92 12/10 1506 B/P Mean 115 12/10 1506 O2 Delivery Room air / 1506 Temp 36.9 12/10 1506 Pulse 110 12/10 1506 Resp 20 /10 1506 Last Documented: Result Date Time Pulse Ox 100 12/10 1506 B/P 163/92 12/10 1506 B/P Mean 115 08/15 1506 O2 Delivery Room air 08/15 1506 Temp 36.9 08/15 1506 Pulse 110 08/15 1506 Resp 20 08/15 1506 All vital signs available at the time of this en try have been reviewed. Ashley Rader 08/15/20 1534: HPI-General Illness Free Text HPI Notes Free Text HPI Notes pelvic pain General Initial Greet Date/Time 08/15/20 1503 Presentation Chief Complaint Abdominal pain Hx Obtained From Patient Sudden in Onset? No Onset Occurred Today Symptom Duration Constant Progression since Onset Constant Exacerbated by Nothing Relieved by Nothing Context Additional Context Patient with PMhx of seizure disorder no on meds comes in complaining of lower abdominal pain radiating to the upper abdomen, pain is intense, 06/15 associated with 2 episodes of vomiting dark content, patient went to [facility] ER and she got CT abdomen that showed ovarian cyst, patient has hi story of appendectomy and hysterectomy Review of Systems ROS Statements All systems rev neg except as marked. Review of Systems Constitutional Denies: Chills, Fatigue, Lethargy. Eyes Denies: Discharge R, Discharge L. Ears/Nose/Throat Denies: Ear ringing R, Ear ringing L. Respiratory Denies: Shortness of breath. Cardiovascular Denies: Parox nocturnal dyspnea. GI Reports: Abdominal pain, Nausea, Vomiting. Denie s: Diarrhea, Hematemesis. Female Reports: Pelvic pain. Denies: , Vaginal bleeding - abnl, Vaginal discharge. Musculoskeletal Denies: Joint pain, Lumbar pain. Hematologic Denies: Bruising. Endocrine Denies: Polyphagia. Skin Denies: Erythema, Jaundice. Allergy/Immun Denies: Sneezing. Neurologic Denies: Dizziness. Psychiatric Reports: Anxiety. Denies: Agitation. Past Medical History - Adult Stated Complaint ABDOMINAL PAIN,DIZZINESS,VOMITI NG,V Allergies Coded Allergies: metoclopramide (From REGLAN) (Severe, SHORTNESS OF BREATH 08/15/20) latex (Intermediate, RASH 08/15/20) adhesive tape (Mild, RASH 08/15/20) lamotrigine (From LAMICTAL) (Mild, RASH 08/15/20 ) Penicillins (RASH 08/15/20) amoxicillin (RASH 08/15/20) doxycycline (RASH 08/15/20) ketorolac (From TORADOL) (RASH 08/15/20) tramadol (SHORTNESS OF BREATH 08/15/20) trazodone (RASH-UNKNOWN 08/15/20) Home Medications Discontinued Scripts oxyCODONE HCL/ACETAMINOPHEN (PERCOCET 5/325 MG) 1 TAB PO Q4H PRN PRN MODERATE PAIN oxyCODONE HCL/ACETAMINOPHEN (PERCOCET 5/325 MG) 1 TAB PO Q4H PRN PRN MODERATE PAIN #20 TAB Prov: 07/09/18 DC: 08/15/20 1540 Therapy completed PROMETHAZINE (PHENERGAN) 12.5 MG PO Q6H PRN NAUS EA PROMETHAZINE (PHENERGAN) 12.5 MG PO Q6H PRN MONI SEA #30 TAB Prov: 07/09/18 DC: 08/15/20 1540 Therapy completed CYCLOBENZAPRINE HCL (FLEXERIL) 5 MG PO TID PRN P RN ABDOMINAL CRAMPS CYCLOBENZAPRINE HCL (FLEXERIL) 5 MG PO TID PRN PRN ABDOMINAL CRAMPS #30 TAB Prov: 07/09/18 DC: 08/15/20 1540 Therapy completed Reported Medications ACETAMINOPHEN/CODEINE (TYLENOL WITH CODE INE #3 300/30 MG) 1 TAB PO Q4H PRN PRN ACUTE PAIN Discontinued Reported Medications PNV WITHOUT CA/FE FUM/FA (-U) (Unknown D ose) PO DAILY levETIRAcetam (KEPPRA) 500 MG PO BID Review of Nursing Notes Rev avail, and agree Physical Exam Vital Signs Vital Signs First Documented: Result Date Time Pulse Ox 100 12/10 1506 B/P 163/92 /10 1506 B/P Mean 115 12/10 1506 O2 Delivery Room air 12/10 1506 Temp 36.9 12/10 1506 Pulse 110 12/10 1506 Resp 20 12/10 1506 Last Documented: Result Date Time Pulse Ox 100 12/10 1506 B/P 163/92 12/10 1506 B/P Mean 115 12/10 1506 O2 Delivery Room air 12/10 1506 Temp 36.9 12/10 1506 Pulse 110 12/10 1506 Resp 20 12/10 1506 Review of Vital Signs Reviewed Basic Physical Exam Basic PE GEN: Well appearing /NAD, HEAD: Atraumatic/NC, EYES: PERRL, conj clear, ENT: Membranes moist, NECK: Supple, RESP: No res p distress, CV: Reg rate rhythm, EXT: No gross abnormality, SKIN: No rash es, warm/dry, NEURO: alert oriented, NEURO: gross movement NL, PSYCH: NL th ought content Physical Exam General/Const General/Const Awake, Alert Abdomen/GI Abdomen/GI Soft Tenderness/Guarding/Rebound Tender suprapubic. Interpretation Diagnostics Lab Results Interpretation Results Laboratory Tests 08/15/20 1535: [Embedded Image Not Available] Laboratory Tests: 08/15 08/15 1635 1535 Chemistry Sodium (135 - 145 mEq/L) 138 Potassium (3.5 - 5.0 mEq/L) 3.7 Chloride (100 - 115 mEq/L) 104 Carbon Dioxide (22 - 31 mEq/L) 27 Anion Gap (10 - 20) 10.50 BUN (7 - 18 mg/dL) 10 Creatinine (0.5 - 1.0 mg/dL) 1.0 Glomerular Filtr Rate (>60 ml/min) 66 Glucose (65 - 110 mg/dL) 106 Calcium (8.4 - 10.2 mg/dL) 8.9 Hematology WBC (6.6 - 12.1 K/mm3) 9.0 RBC (3.45 - 5.01 M/mm3) 4.09 Hgb (10.7 - 13.9 g/dL) 12.4 Hct (32.1 - 42.1 %) 38.9 MCV (84.1 - 94.8 fL) 95 H MCH (27 - 35 pg) 30.3 MCHC (32.2 - 34.1 gm/dL) 31.9 L RDW (12.4 - 16.5 %) 13.0 Plt Count (133 - 385 K/mm3) 327 MPV (9.1 - 12.7 fl) 9.2 Neut % (Auto) (56.5 - 79.4 %) 65.7 Lymph % (Auto) (14.3 - 34.3 %) 24.1 [place] % (Auto) (5.1 - 10.4 %) 8.3 Eos % (Auto) (0.1 - 3.0 %) 1.0 Baso % (Auto) (0.1 - 1.0 %) 0.6 Neut # (Auto) (K/mm3) 5.9 Lymph # (Auto) (K/mm3) 2.2 [place] # (Auto) (K/mm3) 0.7 Eos # (Auto) (K/mm3) 0.09 Baso # (Auto) (K/mm3) 0.1 Miscellaneous Maternal Serum HCG <1 Urines Urine Color (YELLOW) YELLOW Urine Appearance (CLEAR) CLEAR Urine pH (5 - 9) 5.0 Ur Specific [place] (1.001 - 1.035) >1.035 H Urine Protein (NEG) NEGATIVE Urine Glucose (UA) (NEG) NEGATIVE Urine Ketones (NEG) NEGATIVE Urine Blood (NEG) 2+ H Urine Nitrite (NEG) NEG Urine Bilirubin (NEG) NEGATIVE Urine Urobilinogen (NEG mg/dL) NEGATIVE Ur Leukocyte Esterase (NEG) NEG Urine RBC (NONE SEEN #/hpf) 0-2 Urine WBC (NONE SEEN #/hpf) 0-2 Ur Epithelial Cells (RARE - FEW #/HPF) RARE Urine Mucus (NONE SEEN) RARE Lab Imaging Statement Laboratory radiographic studies reviewed and con sidered in the medical decision-making. Patient Discharge Departure Vital Signs/Condition Condition Stable Clinical Impression Clinical Impression Primary Impression: Pelvic pain Pt/Provider Handoff Shift Change Note This patient's care has been transferred to the incoming physician. We discussed : the patient's chief complaint; labs an d imaging that have been completed and those that are still pending; procedures that hinojosa ve been completed and those remaining to be done; any treatment provided and the patient's response to treatment; input from consultants (if any); the remaining treatment plan. The incoming physician will follow up on all pending labs and imaging, make any necessary changes to the cur rent impression and/or treatment plan and provide a final disposition. Handoff Note This patient's care has been transferred to and accepted by []. We discussed: the patient's chief complaint; labs and imaging that have been completed and those that are still pending; procedures that hinojosa ve been completed and those remaining to be done; any treatment provided and the patient's response to treatment; any significant change in con dition; input from consultants if any; the treatment plan prior to the transfer of care. The accepting physician will follow up on all pending lab s and imaging and make any necessary changes to the current impression and/or treatment plan. The [facility] physician is now responsible for the patient's care and final dis position. Care Transferred to Dr Amanda Care Transferred at 1800 Discussed Complaint(s) Yes Laboratory Evaluation Lab evaluation discussed Imaging Studies Ordered, not yet done at 1741 Addendum 1: 08/15/201805 by José Rader MD for Thomas Chamberlain MD Patient Addendum Addendum at 1806 Addendum 2: 08/15/201806 by José Rader MD Patient Addendum Addendum at 1807 Addendum 3: 08/15/201809 by José Rader MD Patient Addendum Addendum at 1810 RPT #:[id number] END OF REPORT 2020-08-15 15:05:00-00:00 [facility] ([facility] EMERGENCY PROVIDER REPORT REPORT#:[id number] REPORT STATUS: Signed DATE:08/15/20 TIME: 1505 PATIENT: LONA MARIE UNIT #: [id number] ROOM/BED: AGE: 30 SEX: F PCP PHYS: No Primary or Family Ph ysician SERVICE AUTHOR: Andressa Razo MD * ALL edits or amendments must be made on the [employer]/computer document * See Addendum Andressa Razo I 08/15/20 1505: HPI-General Illness Provider in Triage Greet Note I have greeted and performed a focused rapid initial assessment of this patient. A comprehensive ED assessment and evaluation of the patient, analysis of all test results, and completion of the medical deci irasema-making process will be conducted by additional ED providers. HPI Chief Complaint Abdominal pain Onset Occurred Sudden, Today Severity Pain level 10 out of 10 (ongoing since am sharp pain) PE General/Const Mild distress HEENT Atraumatic, Normocephalic Respiratory/Chest No respiratory distress Abdomen/GI Tenderness present (radiation to low er) MSE Not Complete The medical screening exam i s not complete. Further evaluation and/or treatment is required. The patient will be re-directed to the emergency department. Past Medical History - Adult Past Medical History: Reports: Seizure disorder. Past Surgical History: Reports: Appendectomy. Re-Evaluation MDM ED Course Medication(s) Ordered Medication(s) Ordered: Central Nervous System Agents Sig/Arina Start time Last Medication Dose Route Stop Time Status Admin Fentanyl Citrate 50 MCG X1ED STA 08/15 210 DC IV 10 211 Hydromorphone HCl 0.5 MG X1ED STA 08/15 2011 DC r 12/10 IV 08/15 Hydromorphone HCl 0.5 MG X1ED STA 08/15 1843 DC r 12/10 IV 12/ 1844 1904 Hydromorphone HCl 1 MG X1ED STA 12 1652 DCr 12/10 IV 12/10 1653 1724 Morphine Sulfate 4 MG X1ED STA 12/ 1503 DCr 1 / IV 12/10 1504 1553 Electrolytic, Caloric, And Jair Sig/Arina Start time Last Medication Dose Route Stop Time Status Admin Sodium Chloride 1,000 ML X1ED STA 12/10 1653 DC 12/10 IV 12/10 1654 1726 Sodium Chloride 1,000 ML X1ED STA 12/10 1515 DC 12/10 IV 12/10 1516 1552 Gastrointestinal Drugs Sig/Arina Start time Last Medication Dose Route Stop Time Status Admin Ondansetron HCl 4 MG X1ED STA 12/10 1503 DC 12/ 10 IV 12/10 1504 1553 Patient Discharge Departure Vital Signs/Condition Vital Signs First Documented: Result Date Time Pulse Ox 100 12/10 1506 B/P 163/92 12/10 1506 B/P Mean 115 12/10 1506 O2 Delivery Room air 08/15 1506 Temp 36.9 12/10 1506 Pulse 110 12/10 1506 Resp 20 12/10 1506 Last Documented: Result Date Time Pulse Ox 100 12/ 1834 B/P 138/66 / 1834 B/P Mean 90 / 1834 Temp 36.8 12/ 1834 Pulse 99 12/ 1834 Resp 18 12/10 1834 O2 Delivery Room air 08/15 1732 All vital signs available at the time of this en try have been reviewed. Ashley Rader 08/15/20 1534: HPI-General Illness Free Text HPI Notes Free Text HPI Notes pelvic pain Presentation Chief Complaint Abdominal pain Hx Obtained From Patient Sudden in Onset? No Onset Occurred Today Symptom Duration Constant Progression since Onset Constant Exacerbated by Nothing Relieved by Nothing Context Additional Context Patient with PMhx of seizure disorder no on meds comes in complaining of lower abdominal pain radiating to the upper abdomen, pain is intense, 10/10 associated with 2 episodes of vomiting dark content, patient went to [facility] ER and she got CT abdomen that showed ovarian cyst, patient has hi story of appendectomy and hysterectomy Review of Systems ROS Statements All systems rev neg except as marked. Review of Systems Constitutional Denies: Chills, Fatigue, Lethargy. Eyes Denies: Discharge R, Discharge L. Ears/Nose/Throat Denies: Ear ringing R, Ear ringing L. Respiratory Denies: Shortness of breath. Cardiovascular Denies: Parox nocturnal dyspnea. GI Reports: Abdominal pain, Nausea, Vomiting. Denie s: Diarrhea, Hematemesis. Female Reports: Pelvic pain. Denies: , Vaginal bleeding - abnl, Vaginal discharge. Musculoskeletal Denies: Joint pain, Lumbar pain. Hematologic Denies: Bruising. Endocrine Denies: Polyphagia. Skin Denies: Erythema, Jaundice. Allergy/Immun Denies: Sneezing. Neurologic Denies: Dizziness. Psychiatric Reports: Anxiety. Denies: Agitation. Past Medical History - Adult Stated Complaint ABDOMINAL PAIN,DIZZINESS,VOMITI NG,V Allergies Coded Allergies: metoclopramide (From REGLAN) (Severe, SHORTNESS OF BREATH 08/15/20) latex (Intermediate, RASH 08/15/20) adhesive tape (Mild, RASH 08/15/20) lamotrigine (From LAMICTAL) (Mild, RASH 08/15/20 ) Penicillins (RASH 08/15/20) amoxicillin (RASH 08/15/20) doxycycline (RASH 08/15/20) ketorolac (From TORADOL) (RASH 08/15/20) tramadol (SHORTNESS OF BREATH 08/15/20) trazodone (RASH-UNKNOWN 08/15/20) Home Medications Discontinued Scripts oxyCODONE HCL/ACETAMINOPHEN (PERCOCET 5/325 MG) 1 TAB PO Q4H PRN PRN MODERATE PAIN oxyCODONE HCL/ACETAMINOPHEN (PERCOCET 5/325 MG) 1 TAB PO Q4H PRN PRN MODERATE PAIN #20 TAB Prov: 07/09/18 DC: 08/15/20 1540 Therapy completed PROMETHAZINE (PHENERGAN) 12.5 MG PO Q6H PRN NAUS EA PROMETHAZINE (PHENERGAN) 12.5 MG PO Q6H PRN MONI SEA #30 TAB Prov: 07/09/18 DC: 08/15/20 1540 Therapy completed CYCLOBENZAPRINE HCL (FLEXERIL) 5 MG PO TID PRN P RN ABDOMINAL CRAMPS CYCLOBENZAPRINE HCL (FLEXERIL) 5 MG PO TID PRN PRN ABDOMINAL CRAMPS #30 TAB Prov: 07/09/18 DC: 08/15/20 1540 Therapy completed Reported Medications ACETAMINOPHEN/CODEINE (TYLENOL WITH CODE INE #3 300/30 MG) 1 TAB PO Q4H PRN PRN ACUTE PAIN Discontinued Reported Medications PNV WITHOUT CA/FE FUM/FA (-U) (Unknown D ose) PO DAILY levETIRAcetam (KEPPRA) 500 MG PO BID Review of Nursing Notes Rev avail, and agree Physical Exam Vital Signs Vital Signs First Documented: Result Date Time Pulse Ox 100 08/15 1506 B/P 163/92 08/15 1506 B/P Mean 115 08/15 1506 O2 Delivery Room air 08/15 1506 Temp 36.9 08/15 1506 Pulse 110 / 1506 Resp 20 08/15 1506 Last Documented: Result Date Time Pulse Ox 100 08/15 1834 B/P 138/66 08/15 1834 B/P Mean 90 08/15 1834 Temp 36.8 08/15 1834 Pulse 99 08/15 1834 Resp 18 / 1834 O2 Delivery Room air 08/15 1732 Review of Vital Signs Reviewed Basic Physical Exam Basic PE GEN: Well appearing /NAD, HEAD: Atraumatic/NC, EYES: PERRL, conj clear, ENT: Membranes moist, NECK: Supple, RESP: No res p distress, CV: Reg rate rhythm, EXT: No gross abnormality, SKIN: No rash es, warm/dry, NEURO: alert oriented, NEURO: gross movement NL, PSYCH: NL th ought content Physical Exam General/Const General/Const Awake, Alert Abdomen/GI Abdomen/GI Soft Tenderness/Guarding/Rebound Tender suprapubic. Interpretation Diagnostics Lab Results Interpretation Results Laboratory Tests 08/15/20 1535: [Embedded Image Not Available] Laboratory Tests: 08/15 08/15 1635 1535 Chemistry Sodium (135 - 145 mEq/L) 138 Potassium (3.5 - 5.0 mEq/L) 3.7 Chloride (100 - 115 mEq/L) 104 Carbon Dioxide (22 - 31 mEq/L) 27 Anion Gap (10 - 20) 10.50 BUN (7 - 18 mg/dL) 10 Creatinine (0.5 - 1.0 mg/dL) 1.0 Glomerular Filtr Rate (>60 ml/min) 66 Glucose (65 - 110 mg/dL) 106 Calcium (8.4 - 10.2 mg/dL) 8.9 Hematology WBC (6.6 - 12.1 K/mm3) 9.0 RBC (3.45 - 5.01 M/mm3) 4.09 Hgb (10.7 - 13.9 g/dL) 12.4 Hct (32.1 - 42.1 %) 38.9 MCV (84.1 - 94.8 fL) 95 H MCH (27 - 35 pg) 30.3 MCHC (32.2 - 34.1 gm/dL) 31.9 L RDW (12.4 - 16.5 %) 13.0 Plt Count (133 - 385 K/mm3) 327 MPV (9.1 - 12.7 fl) 9.2 Neut % (Auto) (56.5 - 79.4 %) 65.7 Lymph % (Auto) (14.3 - 34.3 %) 24.1 [place] % (Auto) (5.1 - 10.4 %) 8.3 Eos % (Auto) (0.1 - 3.0 %) 1.0 Baso % (Auto) (0.1 - 1.0 %) 0.6 Neut # (Auto) (K/mm3) 5.9 Lymph # (Auto) (K/mm3) 2.2 [place] # (Auto) (K/mm3) 0.7 Eos # (Auto) (K/mm3) 0.09 Baso # (Auto) (K/mm3) 0.1 Miscellaneous Maternal Serum HCG <1 Urines Urine Color (YELLOW) YELLOW Urine Appearance (CLEAR) CLEAR Urine pH (5 - 9) 5.0 Ur Specific [place] (1.001 - 1.035) >1.035 H Urine Protein (NEG) NEGATIVE Urine Glucose (UA) (NEG) NEGATIVE Urine Ketones (NEG) NEGATIVE Urine Blood (NEG) 2+ H Urine Nitrite (NEG) NEG Urine Bilirubin (NEG) NEGATIVE Urine Urobilinogen (NEG mg/dL) NEGATIVE Ur Leukocyte Esterase (NEG) NEG Urine RBC (NONE SEEN #/hpf) 0-2 Urine WBC (NONE SEEN #/hpf) 0-2 Ur Epithelial Cells (RARE - FEW #/HPF) RARE Urine Mucus (NONE SEEN) RARE Recent Impressions: ULTRASOUND - US TRANSVAGINAL W/PELVIS 08/15 1751 Report Impression - Status: SIGNED Entered: 08/15/20201836 IMPRESSION: 1. Abnormal small volume free pelvic fluid. 2. Nonvisualization of the uterus and ovaries. SL: SG-H Impression By: Jose L Hairston MD ULTRASOUND - US PELVIS COMPLETE 08/15 1751 Report Impression - Status: SIGNED Entered: 08/15/20201836 IMPRESSION: 1. Abnormal small volume free pelvic fluid. 2. Nonvisualization of the uterus and ovaries. SL: SG-H Impression By: Jose L Hairston MD Lab Imaging Statement Laboratory radiographic studies reviewed and co nsidered in the medical decision-making. Patient Discharge Departure Vital Signs/Condition Condition Stable Clinical Impression Clinical Impression Primary Impression: Pelvic pain Pt/Provider Handoff Shift Change Note This patient's care has been transferred to the incoming physician. We discussed : the patient's chief complaint; labs an d imaging that have been completed and those that are still pending; procedures that hinojosa ve been completed and those remaining to be done; any treatment provided and the patient's response to treatment; input from consultants (if any); the remaining treatment plan. The incoming physician will follow up on all pending labs and imaging, make any necessary changes to the cur rent impression and/or treatment plan and provide a final disposition. Handoff Note This patient's care has been transferred to and accepted by []. We discussed: the patient's chief complaint; labs and imaging that have been completed and those that are still pending; procedures that hinojosa ve been completed and those remaining to be done; any treatment provided and the patient's response to treatment; any significant change in con dition; input from consultants if any; the treatment plan prior to the transfer of care. The accepting physician will follow up on all pending lab s and imaging and make any necessary changes to the current impression and/or treatment plan. The [facility] physician is now responsible for the patient's care and final dis position. Care Transferred to Dr Amanda Care Transferred at 1800 Discussed Complaint(s) Yes Laboratory Evaluation Lab evaluation discussed Imaging Studies Ordered, not yet done Thomas Chamberlain 08/15/202111: HPI-General Illness General Initial Greet Date/Time 08/15/20 1503 Physical Exam Physical Exam Genitourinary Text/Dict Notes cuff intact, small area of erythema noted Re-Evaluation MDM Consultation Consultation Referral/Consult Name Zulay Brooke MD Bead Maker Called Hospitalist Requested Call Time 2112 Requested Call Date 08/15/20 Call Returned Call returned Call Returned Time 2112 Call Returned Date 08/15/20 Bead Maker Will see patient at 1741 Addendum 1: 08/15/201805 by José Rader MD for Thomas Chamberlain MD Patient Addendum Addendum at 1806 Addendum 2: 08/15/20 180 by José Rader MD Patient Addendum Addendum at 1807 Addendum 3: 08/15/201809 by José Rader MD Patient Addendum Addendum at 1810 RPT #:[id number] END OF REPORT 2020-08-15 15:05:00-00:00 [facility] EMERGENCY PROVIDER REPORT REPORT#:[id number] REPORT STATUS: Signed DATE:08/15/20 TIME: 1505 PATIENT: LONA MARIE UNIT #: [id number] ROOM/BED: AGE: 30 SEX: F PCP PHYS: No Primary or Family Ph ysician SERVICE AUTHOR: Andressa Razo MD * ALL edits or amendments must be made on the [employer]/computer document * See Addendum Andressa Razo I 08/15/20 1505: HPI-General Illness Provider in Triage Greet Note I have greeted and performed a focused rapid initial assessment of this patient. A comprehensive ED assessment and evaluation of the patient, analysis of all test results, and completion of the medical deci irasema-making process will be conducted by additional ED providers. HPI Chief Complaint Abdominal pain Onset Occurred Sudden, Today Severity Pain level 10 out of 10 (ongoing since am sharp pain) PE General/Const Mild distress HEENT Atraumatic, Normocephalic Respiratory/Chest No respiratory distress Abdomen/GI Tenderness present (radiation to low er) MSE Not Complete The medical screening exam i s not complete. Further evaluation and/or treatment is required. The patient will be re-directed to the emergency department. Past Medical History - Adult Past Medical History: Reports: Seizure disorder. Past Surgical History: Reports: Appendectomy. Re-Evaluation MDM ED Course Medication(s) Ordered Medication(s) Ordered: Central Nervous System Agents Sig/Arina Start time Last Medication Dose Route Stop Time Status Admin Fentanyl Citrate 50 MCG X1ED STA 08/15 210 DC 12/10 IV 12/ 2110 2218 Hydromorphone HCl 0.5 MG X1ED STA 08/15 2011 DC r 12/10 IV 122011 2044 Hydromorphone HCl 0.5 MG X1ED STA 12/10 1843 DC r 12/10 IV 12/10 1844 1904 Hydromorphone HCl 1 MG X1ED STA 12/ 1652 DCr 12/10 IV 12/10 1653 1724 Morphine Sulfate 4 MG X1ED STA 12/10 1503 DCr 12/10 IV 12/10 1504 1553 Electrolytic, Caloric, And Jair Sig/Arina Start time Last Medication Dose Route Stop Time Status Admin Sodium Chloride 1,000 ML X1ED STA 12/10 1653 DC 12/10 IV 12/10 1654 1726 Sodium Chloride 1,000 ML X1ED STA 12/10 1515 DC 12/10 IV 12/10 1516 1552 Gastrointestinal Drugs Sig/Arina Start time Last Medication Dose Route Stop Time Status Admin Ondansetron HCl 4 MG X1ED STA 08/15 1503 DC IV 08/15 1504 1553 Patient Discharge Departure Vital Signs/Condition Vital Signs First Documented: Result Date Time Pulse Ox 100 08/15 1506 B/P 163/92 / 1506 B/P Mean 115 08/15 1506 O2 Delivery Room air 08/15 1506 Temp 36.9 08/15 1506 Pulse 110 08/15 1506 Resp 20 08/15 1506 Last Documented: Result Date Time Pulse Ox 100 08/15 2030 B/P 120/70 08/15 2030 B/P Mean 86 08/15 2030 O2 Delivery Room air 08/15 2030 Temp 36.8 08/15 2030 Pulse 90 08/15 2030 Resp 18 08/15 2030 All vital signs available at the time of this en try have been reviewed. MedardoMary KayAshley 08/15/20 1534: HPI-General Illness Free Text HPI Notes Free Text HPI Notes pelvic pain Presentation Chief Complaint Abdominal pain Hx Obtained From Patient Sudden in Onset? No Onset Occurred Today Symptom Duration Constant Progression since Onset Constant Exacerbated by Nothing Relieved by Nothing Context Additional Context Patient with PMhx of seizure disorder no on meds comes in complaining of lower abdominal pain radiating to the upper abdomen, pain is intense, 06/15 associated with 2 episodes of vomiting dark content, patient went to [facility] ER and she got CT abdomen that showed ovarian cyst, patient has hi story of appendectomy and hysterectomy Review of Systems ROS Statements All systems rev neg except as marked. Review of Systems Constitutional Denies: Chills, Fatigue, Lethargy. Eyes Denies: Discharge R, Discharge L. Ears/Nose/Throat Denies: Ear ringing R, Ear ringing L. Respiratory Denies: Shortness of breath. Cardiovascular Denies: Parox nocturnal dyspnea. GI Reports: Abdominal pain, Nausea, Vomiting. Denie s: Diarrhea, Hematemesis. Female Reports: Pelvic pain. Denies: , Vaginal bleeding - abnl, Vaginal discharge. Musculoskeletal Denies: Joint pain, Lumbar pain. Hematologic Denies: Bruising. Endocrine Denies: Polyphagia. Skin Denies: Erythema, Jaundice. Allergy/Immun Denies: Sneezing. Neurologic Denies: Dizziness. Psychiatric Reports: Anxiety. Denies: Agitation. Past Medical History - Adult Stated Complaint ABDOMINAL PAIN,DIZZINESS,VOMITI NG,V Allergies Coded Allergies: metoclopramide (From REGLAN) (Severe, SHORTNESS OF BREATH 08/15/20) latex (Intermediate, RASH 08/15/20) adhesive tape (Mild, RASH 08/15/20) lamotrigine (From LAMICTAL) (Mild, RASH 08/15/20 ) Penicillins (RASH 08/15/20) amoxicillin (RASH 08/15/20) doxycycline (RASH 08/15/20) ketorolac (From TORADOL) (RASH 08/15/20) tramadol (SHORTNESS OF BREATH 08/15/20) trazodone (RASH-UNKNOWN 08/15/20) Home Medications Discontinued Scripts oxyCODONE HCL/ACETAMINOPHEN (PERCOCET 5/325 MG) 1 TAB PO Q4H PRN PRN MODERATE PAIN oxyCODONE HCL/ACETAMINOPHEN (PERCOCET 5/325 MG) 1 TAB PO Q4H PRN PRN MODERATE PAIN #20 TAB Prov: 07/09/18 DC: 08/15/20 1540 Therapy completed PROMETHAZINE (PHENERGAN) 12.5 MG PO Q6H PRN NAUS EA PROMETHAZINE (PHENERGAN) 12.5 MG PO Q6H PRN MONI SEA #30 TAB Prov: 07/09/18 DC: 08/15/20 1540 Therapy completed CYCLOBENZAPRINE HCL (FLEXERIL) 5 MG PO TID PRN P RN ABDOMINAL CRAMPS CYCLOBENZAPRINE HCL (FLEXERIL) 5 MG PO TID PRN PRN ABDOMINAL CRAMPS #30 TAB Prov: 07/09/18 DC: 08/15/20 1540 Therapy completed Reported Medications ACETAMINOPHEN/CODEINE (TYLENOL WITH CODE INE #3 300/30 MG) 1 TAB PO Q4H PRN PRN ACUTE PAIN Discontinued Reported Medications PNV WITHOUT CA/FE FUM/FA (-U) (Unknown D ose) PO DAILY levETIRAcetam (KEPPRA) 500 MG PO BID Review of Nursing Notes Rev avail, and agree Physical Exam Vital Signs Vital Signs First Documented: Result Date Time Pulse Ox 100 08/15 1506 B/P 163/92 08/15 1506 B/P Mean 115 08/15 1506 O2 Delivery Room air 08/15 1506 Temp 36.9 08/15 1506 Pulse 110 08/15 1506 Resp 20 12/10 150 Last Documented: Result Date Time Pulse Ox 100 08/15 2030 B/P 120/70 08/15 2030 B/P Mean 86 08/15 2030 O2 Delivery Room air 08/15 2030 Temp 36.8 08/15 2030 Pulse 90 08/15 2030 Resp 18 08/15 2030 Review of Vital Signs Reviewed Basic Physical Exam Basic PE GEN: Well appearing /NAD, HEAD: Atraumatic/NC, EYES: PERRL, conj clear, ENT: Membranes moist, NECK: Supple, RESP: No res p distress, CV: Reg rate rhythm, EXT: No gross abnormality, SKIN: No rash es, warm/dry, NEURO: alert oriented, NEURO: gross movement NL, PSYCH: NL th ought content Physical Exam General/Const General/Const Awake, Alert Abdomen/GI Abdomen/GI Soft Tenderness/Guarding/Rebound Tender suprapubic. Interpretation Diagnostics Lab Results Interpretation Results Laboratory Tests 08/15/20 1535: [Embedded Image Not Available] Laboratory Tests: 08/15 08/15 1635 1535 Chemistry Sodium (135 - 145 mEq/L) 138 Potassium (3.5 - 5.0 mEq/L) 3.7 Chloride (100 - 115 mEq/L) 104 Carbon Dioxide (22 - 31 mEq/L) 27 Anion Gap (10 - 20) 10.50 BUN (7 - 18 mg/dL) 10 Creatinine (0.5 - 1.0 mg/dL) 1.0 Glomerular Filtr Rate (>60 ml/min) 66 Glucose (65 - 110 mg/dL) 106 Calcium (8.4 - 10.2 mg/dL) 8.9 Hematology WBC (6.6 - 12.1 K/mm3) 9.0 RBC (3.45 - 5.01 M/mm3) 4.09 Hgb (10.7 - 13.9 g/dL) 12.4 Hct (32.1 - 42.1 %) 38.9 MCV (84.1 - 94.8 fL) 95 H MCH (27 - 35 pg) 30.3 MCHC (32.2 - 34.1 gm/dL) 31.9 L RDW (12.4 - 16.5 %) 13.0 Plt Count (133 - 385 K/mm3) 327 MPV (9.1 - 12.7 fl) 9.2 Neut % (Auto) (56.5 - 79.4 %) 65.7 Lymph % (Auto) (14.3 - 34.3 %) 24.1 [place] % (Auto) (5.1 - 10.4 %) 8.3 Eos % (Auto) (0.1 - 3.0 %) 1.0 Baso % (Auto) (0.1 - 1.0 %) 0.6 Neut # (Auto) (K/mm3) 5.9 Lymph # (Auto) (K/mm3) 2.2 [place] # (Auto) (K/mm3) 0.7 Eos # (Auto) (K/mm3) 0.09 Baso # (Auto) (K/mm3) 0.1 Miscellaneous Maternal Serum HCG <1 Urines Urine Color (YELLOW) YELLOW Urine Appearance (CLEAR) CLEAR Urine pH (5 - 9) 5.0 Ur Specific [place] (1.001 - 1.035) >1.035 H Urine Protein (NEG) NEGATIVE Urine Glucose (UA) (NEG) NEGATIVE Urine Ketones (NEG) NEGATIVE Urine Blood (NEG) 2+ H Urine Nitrite (NEG) NEG Urine Bilirubin (NEG) NEGATIVE Urine Urobilinogen (NEG mg/dL) NEGATIVE Ur Leukocyte Esterase (NEG) NEG Urine RBC (NONE SEEN #/hpf) 0-2 Urine WBC (NONE SEEN #/hpf) 0-2 Ur Epithelial Cells (RARE - FEW #/HPF) RARE Urine Mucus (NONE SEEN) RARE Recent Impressions: ULTRASOUND - US TRANSVAGINAL W/PELVIS 08/15 1751 Report Impression - Status: SIGNED Entered: 08/15/20201836 IMPRESSION: 1. Abnormal small volume free pelvic fluid. 2. Nonvisualization of the uterus and ovaries. SL: SG-H Impression By: Jose L Hairston MD ULTRASOUND - US PELVIS COMPLETE 08/15 1751 Report Impression - Status: SIGNED Entered: 08/15/20201836 IMPRESSION: 1. Abnormal small volume free pelvic fluid. 2. Nonvisualization of the uterus and ovaries. SL: SG-H Impression By: Jose L Hairston MD Lab Imaging Statement Laboratory radiographic studies reviewed and con sidered in the medical decision-making. Patient Discharge Departure Vital Signs/Condition Condition Stable Clinical Impression Clinical Impression Primary Impression: Pelvic pain Pt/Provider Handoff Shift Change Note This patient's care has been transferred to the incoming physician. We discussed : the patient's chief complaint; labs an d imaging that have been completed and those that are still pending; procedures that hinojosa ve been completed and those remaining to be done; any treatment provided and the patient's response to treatment; input from consultants (if any); the remaining treatment plan. The incoming physician will follow up on all pending labs and imaging, make any necessary changes to the cur rent impression and/or treatment plan and provide a final disposition. Handoff Note This patient's care has been transferred to and accepted by []. We discussed: the patient's chief complaint; labs and imaging that have been completed and those that are still pending; procedures that hinojosa ve been completed and those remaining to be done; any treatment provided and the patient's response to treatment; any significant change in con dition; input from consultants if any; the treatment plan prior to the transfer of care. The accepting physician will follow up on all pending lab s and imaging and make any necessary changes to the current impression and/or treatment plan. The [facility] physician is now responsible for the patient's care and final dis position. Care Transferred to Dr Amanda Care Transferred at 1800 Discussed Complaint(s) Yes Laboratory Evaluation Lab evaluation discussed Imaging Studies Ordered, not yet done Thomas Chamberlain 08/15/202111: HPI-General Illness General Initial Greet Date/Time 08/15/20 1503 Physical Exam Physical Exam Genitourinary Text/Dict Notes cuff intact, small area of erythema noted Re-Evaluation MDM Re-Evaluation/Progress #1 Text/Dict Note Dr. Brooke at bedside Time of Re-Eval 2237 Re-Eval Status Unchanged Consultation Consultation Referral/Consult Name Zulay Brooke MD Bead Maker Called Hospitalist Requested Call Time 2112 Requested Call Date 08/15/20 Call Returned Call returned Call Returned Time 2112 Call Returned Date 08/15/20 Bead Maker Will see patient at 1741 Addendum 1: 08/15/20 1806 by José Rader MD for Thomas Chamberlain MD Patient Addendum Addendum at 1806 Addendum 2: 08/15/201806 by José Rader MD Patient Addendum Addendum at 1807 Addendum 3: 08/15/201809 by José Rader MD Patient Addendum Addendum at 1810 RPT #:[id number] END OF REPORT 2020-08-15 15:05:00-00:00 [facility] EMERGENCY PROVIDER REPORT REPORT#:[id number] REPORT STATUS: Signed DATE:08/15/20 TIME: 150 PATIENT: LONA MARIE UNIT #: [id number] ROOM/BED: AGE: 30 SEX: F PCP PHYS: No Primary or Family Ph ysician SERVICE AUTHOR: Andressa Razo MD * ALL edits or amendments must be made on the [employer]/computer document * See Addendum Andressa Razo I 08/15/20 1505: HPI-General Illness Provider in Triage Greet Note I have greeted and performed a focused rapid initial assessment of this patient. A comprehensive ED assessment and evaluation of the patient, analysis of all test results, and completion of the medical deci irasema-making process will be conducted by additional ED providers. HPI Chief Complaint Abdominal pain Onset Occurred Sudden, Today Severity Pain level 10 out of 10 (ongoing since am sharp pain) PE General/Const Mild distress HEENT Atraumatic, Normocephalic Respiratory/Chest No respiratory distress Abdomen/GI Tenderness present (radiation to low er) MSE Not Complete The medical screening exam i s not complete. Further evaluation and/or treatment is required. The patient will be re-directed to the emergency department. Past Medical History - Adult Past Medical History: Reports: Seizure disorder. Past Surgical History: Reports: Appendectomy. Re-Evaluation MDM ED Course Medication(s) Ordered Medication(s) Ordered: Central Nervous System Agents Sig/Arina Start time Last Medication Dose Route Stop Time Status Admin Fentanyl Citrate 50 MCG X1ED STA 08/15 2109 DC 12/10 IV 08/15 211 2218 Hydromorphone HCl 0.5 MG X1ED STA 08/15 2011 DC r /10 IV 08/15 Hydromorphone HCl 0.5 MG X1ED STA 08/15 1843 DC r / IV 08/15 1844 1904 Hydromorphone HCl 1 MG X1ED STA 08/15 1652 DCr 12/10 IV 08/15 1653 1724 Morphine Sulfate 4 MG X1ED STA 08/15 1503 DCr 1 10/16 IV 08/15 1504 1553 Electrolytic, Caloric, And Jair Sig/Arina Start time Last Medication Dose Route Stop Time Status Admin Sodium Chloride 1,000 ML X1ED STA 08/15 1653 DC 12/ IV 08/15 1654 1726 Sodium Chloride 1,000 ML X1ED STA 08/15 1515 DC 12/ IV 08/15 1516 1552 Gastrointestinal Drugs Sig/Arina Start time Last Medication Dose Route Stop Time Status Admin Ondansetron HCl 4 MG X1ED STA 08/15 1503 DC IV 08/15 1504 1553 Patient Discharge Departure Vital Signs/Condition Vital Signs First Documented: Result Date Time Pulse Ox 100 12/ 1506 B/P 163/92 12/ 1506 B/P Mean 115 /10 1506 O2 Delivery Room air 08/15 1506 Temp 36.9 08/15 1506 Pulse 110 12/ 1506 Resp 20 12/ 1506 Last Documented: Result Date Time Pulse Ox 100 08/15 2030 B/P 120/70 / 2030 B/P Mean 86 / 2030 O2 Delivery Room air 08/15 2030 Temp 36.8 08/15 2030 Pulse 90 12 2030 Resp 18 08/15 2030 All vital signs available at the time of this en try have been reviewed. Ashley Rader 08/15/20 1534: HPI-General Illness Free Text HPI Notes Free Text HPI Notes pelvic pain Presentation Chief Complaint Abdominal pain Hx Obtained From Patient Sudden in Onset? No Onset Occurred Today Symptom Duration Constant Progression since Onset Constant Exacerbated by Nothing Relieved by Nothing Context Additional Context Patient with PMhx of seizure disorder no on meds comes in complaining of lower abdominal pain radiating to the upper abdomen, pain is intense, 06/15 associated with 2 episodes of vomiting dark content, patient went to [facility] ER and she got CT abdomen that showed ovarian cyst, patient has hi story of appendectomy and hysterectomy Review of Systems ROS Statements All systems rev neg except as marked. Review of Systems Constitutional Denies: Chills, Fatigue, Lethargy. Eyes Denies: Discharge R, Discharge L. Ears/Nose/Throat Denies: Ear ringing R, Ear ringing L. Respiratory Denies: Shortness of breath. Cardiovascular Denies: Parox nocturnal dyspnea. GI Reports: Abdominal pain, Nausea, Vomiting. Denie s: Diarrhea, Hematemesis. Female Reports: Pelvic pain. Denies: , Vaginal bleeding - abnl, Vaginal discharge. Musculoskeletal Denies: Joint pain, Lumbar pain. Hematologic Denies: Bruising. Endocrine Denies: Polyphagia. Skin Denies: Erythema, Jaundice. Allergy/Immun Denies: Sneezing. Neurologic Denies: Dizziness. Psychiatric Reports: Anxiety. Denies: Agitation. Past Medical History - Adult Stated Complaint ABDOMINAL PAIN,DIZZINESS,VOMITI NG,V Allergies Coded Allergies: metoclopramide (From REGLAN) (Severe, SHORTNESS OF BREATH 08/15/20) latex (Intermediate, RASH 08/15/20) adhesive tape (Mild, RASH 08/15/20) lamotrigine (From LAMICTAL) (Mild, RASH 08/15/20 ) Penicillins (RASH 08/15/20) amoxicillin (RASH 08/15/20) doxycycline (RASH 08/15/20) ketorolac (From TORADOL) (RASH 08/15/20) tramadol (SHORTNESS OF BREATH 08/15/20) trazodone (RASH-UNKNOWN 08/15/20) Home Medications Discontinued Scripts oxyCODONE HCL/ACETAMINOPHEN (PERCOCET 5/325 MG) 1 TAB PO Q4H PRN PRN MODERATE PAIN oxyCODONE HCL/ACETAMINOPHEN (PERCOCET 5/325 MG) 1 TAB PO Q4H PRN PRN MODERATE PAIN #20 TAB Prov: 07/09/18 DC: 08/15/20 1540 Therapy completed PROMETHAZINE (PHENERGAN) 12.5 MG PO Q6H PRN NAUS EA PROMETHAZINE (PHENERGAN) 12.5 MG PO Q6H PRN MONI SEA #30 TAB Prov: 07/09/18 DC: 08/15/20 1540 Therapy completed CYCLOBENZAPRINE HCL (FLEXERIL) 5 MG PO TID PRN P RN ABDOMINAL CRAMPS CYCLOBENZAPRINE HCL (FLEXERIL) 5 MG PO TID PRN PRN ABDOMINAL CRAMPS #30 TAB Prov: 07/09/18 DC: 08/15/20 1540 Therapy completed Reported Medications ACETAMINOPHEN/CODEINE (TYLENOL WITH CODE INE #3 300/30 MG) 1 TAB PO Q4H PRN PRN ACUTE PAIN Discontinued Reported Medications PNV WITHOUT CA/FE FUM/FA (-U) (Unknown D ose) PO DAILY levETIRAcetam (KEPPRA) 500 MG PO BID Review of Nursing Notes Rev avail, and agree Physical Exam Vital Signs Vital Signs First Documented: Result Date Time Pulse Ox 100 08/15 1506 B/P 163/92 08/15 1506 B/P Mean 115 08/15 1506 O2 Delivery Room air 08/15 1506 Temp 36.9 08/15 150 Pulse 110 08/15 1506 Resp 20 08/15 150 Last Documented: Result Date Time Pulse Ox 100 08/15 2030 B/P 120/70 08/15 2030 B/P Mean 86 08/15 2030 O2 Delivery Room air 08/15 2030 Temp 36.8 08/15 2030 Pulse 90 08/15 2030 Resp 18 08/15 2030 Review of Vital Signs Reviewed Basic Physical Exam Basic PE GEN: Well appearing /NAD, HEAD: Atraumatic/NC, EYES: PERRL, conj clear, ENT: Membranes moist, NECK: Supple, RESP: No res p distress, CV: Reg rate rhythm, EXT: No gross abnormality, SKIN: No rash es, warm/dry, NEURO: alert oriented, NEURO: gross movement NL, PSYCH: NL th ought content Physical Exam General/Const General/Const Awake, Alert Abdomen/GI Abdomen/GI Soft Tenderness/Guarding/Rebound Tender suprapubic. Interpretation Diagnostics Lab Results Interpretation Results Laboratory Tests 08/15/20 1535: [Embedded Image Not Available] Laboratory Tests: 08/15 08/15 1635 1535 Chemistry Sodium (135 - 145 mEq/L) 138 Potassium (3.5 - 5.0 mEq/L) 3.7 Chloride (100 - 115 mEq/L) 104 Carbon Dioxide (22 - 31 mEq/L) 27 Anion Gap (10 - 20) 10.50 BUN (7 - 18 mg/dL) 10 Creatinine (0.5 - 1.0 mg/dL) 1.0 Glomerular Filtr Rate (>60 ml/min) 66 Glucose (65 - 110 mg/dL) 106 Calcium (8.4 - 10.2 mg/dL) 8.9 Hematology WBC (6.6 - 12.1 K/mm3) 9.0 RBC (3.45 - 5.01 M/mm3) 4.09 Hgb (10.7 - 13.9 g/dL) 12.4 Hct (32.1 - 42.1 %) 38.9 MCV (84.1 - 94.8 fL) 95 H MCH (27 - 35 pg) 30.3 MCHC (32.2 - 34.1 gm/dL) 31.9 L RDW (12.4 - 16.5 %) 13.0 Plt Count (133 - 385 K/mm3) 327 MPV (9.1 - 12.7 fl) 9.2 Neut % (Auto) (56.5 - 79.4 %) 65.7 Lymph % (Auto) (14.3 - 34.3 %) 24.1 [place] % (Auto) (5.1 - 10.4 %) 8.3 Eos % (Auto) (0.1 - 3.0 %) 1.0 Baso % (Auto) (0.1 - 1.0 %) 0.6 Neut # (Auto) (K/mm3) 5.9 Lymph # (Auto) (K/mm3) 2.2 [place] # (Auto) (K/mm3) 0.7 Eos # (Auto) (K/mm3) 0.09 Baso # (Auto) (K/mm3) 0.1 Miscellaneous Maternal Serum HCG <1 Urines Urine Color (YELLOW) YELLOW Urine Appearance (CLEAR) CLEAR Urine pH (5 - 9) 5.0 Ur Specific [place] (1.001 - 1.035) >1.035 H Urine Protein (NEG) NEGATIVE Urine Glucose (UA) (NEG) NEGATIVE Urine Ketones (NEG) NEGATIVE Urine Blood (NEG) 2+ H Urine Nitrite (NEG) NEG Urine Bilirubin (NEG) NEGATIVE Urine Urobilinogen (NEG mg/dL) NEGATIVE Ur Leukocyte Esterase (NEG) NEG Urine RBC (NONE SEEN #/hpf) 0-2 Urine WBC (NONE SEEN #/hpf) 0-2 Ur Epithelial Cells (RARE - FEW #/HPF) RARE Urine Mucus (NONE SEEN) RARE Recent Impressions: ULTRASOUND - US TRANSVAGINAL W/PELVIS 08/15 1751 Report Impression - Status: SIGNED Entered: 08/15/20201836 IMPRESSION: 1. Abnormal small volume free pelvic fluid. 2. Nonvisualization of the uterus and ovaries. SL: SG-H Impression By: Jose L Hairston MD ULTRASOUND - US PELVIS COMPLETE 08/15 1751 Report Impression - Status: SIGNED Entered: 08/15/20201836 IMPRESSION: 1. Abnormal small volume free pelvic fluid. 2. Nonvisualization of the uterus and ovaries. SL: SG-H Impression By: Jose L Hairston MD Lab Imaging Statement Laboratory radiographic studies reviewed and con sidered in the medical decision-making. Patient Discharge Departure Vital Signs/Condition Condition Stable Clinical Impression Clinical Impression Primary Impression: Pelvic pain Pt/Provider Handoff Shift Change Note This patient's care has been transferred to the incoming physician. We discussed : the patient's chief complaint; labs an d imaging that have been completed and those that are still pending; procedures that hinojosa ve been completed and those remaining to be done; any treatment provided and the patient's response to treatment; input from consultants (if any); the remaining treatment plan. The incoming physician will follow up on all pending labs and imaging, make any necessary changes to the cur rent impression and/or treatment plan and provide a final disposition. Handoff Note This patient's care has been transferred to and accepted by []. We discussed: the patient's chief complaint; labs and imaging that have been completed and those that are still pending; procedures that hinojosa ve been completed and those remaining to be done; any treatment provided and the patient's response to treatment; any significant change in con dition; input from consultants if any; the treatment plan prior to the transfer of care. The accepting physician will follow up on all pending lab s and imaging and make any necessary changes to the current impression and/or treatment plan. The [facility] physician is now responsible for the patient's care and final dis position. Care Transferred to Dr Amanda Care Transferred at 1800 Discussed Complaint(s) Yes Laboratory Evaluation Lab evaluation discussed Imaging Studies Ordered, not yet done Thomas Chamberlain 08/15/202: HPI-General Illness General Initial Greet Date/Time 08/15/20 1503 Physical Exam Physical Exam Genitourinary Text/Dict Notes cuff intact, small area of erythema noted, no bl eeding Re-Evaluation MDM Re-Evaluation/Progress #1 Text/Dict Note Dr. Brooke at bedside Time of Re-Eval 2237 Re-Eval Status Unchanged Consultation Consultation Referral/Consult Name Zulay Brooke MD Bead Maker Called Hospitalist Requested Call Time 2112 Requested Call Date 08/15/20 Call Returned Call returned Call Returned Time 2112 Call Returned Date 08/15/20 Bead Maker Will see patient Free Text MDM Notes Free Text MDM Notes Seen by Dr Brooke, will admit for intractable p elvic pain. Patient Discharge Departure Disposition Decision Admit Admit Physician Name Zulay Brooke MD Admit Physician Hospitalist Request Time 2313 Request Date 08/15/20 )( Admission Accepts Yes )( Accepted Time 2313 )( Accepted Date 08/15/20 Discharge/Care Plan Counseled Regarding Diagnosi s, Lab results, Imaging studies, Need for admission at 1741 at 2320 Addendum 1: 08/15/201805 by José Rader MD for Thomas Chamberlain MD Patient Addendum Addendum at 1806 Addendum 2: 08/15/20 180 by José Rader MD Patient Addendum Addendum at 1807 Addendum 3: 08/15/20 1810 by José Rader MD Patient Addendum Addendum at 1810 RPT #:[id number] END OF REPORT 2020-08-15 15:05:00-00:00 [facility] ([facility]) EMERGENCY PROVIDER REPORT REPORT#:[id number] REPORT STATUS: Signed DATE:08/15/20 TIME: 1505 PATIENT: LONA MARIE UNIT #: [id number] ROOM/BED: .[facility]0-A AGE: 30 SEX: F PCP PHYS: Zulay Brooke MD SERVICE AUTHOR: Andressa Razo MD * ALL edits or amendments must be made on the [employer]/computer document * See Addendum Andressa Razo I 08/15/20 1505: HPI-General Illness Provider in Triage Greet Note I have greeted and performed a focused rapid initial assessment of this patient. A comprehensive ED assessment and evaluation of the patient, analysis of all test results, and completion of the medical deci irasema-making process will be conducted by additional ED providers. HPI Chief Complaint Abdominal pain Onset Occurred Sudden, Today Severity Pain level 10 out of 10 (ongoing since am sharp pain) PE General/Const Mild distress HEENT Atraumatic, Normocephalic Respiratory/Chest No respiratory distress Abdomen/GI Tenderness present (radiation to low er) MSE Not Complete The medical screening exam i s not complete. Further evaluation and/or treatment is required. The patient will be re-directed to the emergency department. Past Medical History - Adult Past Medical History: Reports: Seizure disorder. Past Surgical History: Reports: Appendectomy. Re-Evaluation MDM ED Course Medication(s) Ordered Medication(s) Ordered: Central Nervous System Agents Sig/Arina Start time Last Medication Dose Route Stop Time Status Admin Fentanyl Citrate 50 MCG X1ED STA 08/15 210 DC 08/15 IV 08/15 2110 2218 Hydromorphone HCl 0.5 MG X1ED STA 08/15 2011 DC r 12/10 IV 08/15 Hydromorphone HCl 0.5 MG X1ED STA 08/15 1843 DC r 10 IV 08/15 1844 1904 Hydromorphone HCl 1 MG X1ED STA 08/15 1652 DCr 12/10 IV 12 1653 1724 Morphine Sulfate 4 MG X1ED STA 08/15 1503 DCr 1 2/10 IV 12/ 1504 1553 Electrolytic, Caloric, And Jair Sig/Arina Start time Last Medication Dose Route Stop Time Status Admin Sodium Chloride 1,000 ML X1ED STA 08/15 1653 DC 12/10 IV 12/ 1654 1726 Sodium Chloride 1,000 ML X1ED STA 08/15 1515 DC 12/10 IV 12/10 1516 1552 Gastrointestinal Drugs Sig/Arina Start time Last Medication Dose Route Stop Time Status Admin Ondansetron HCl 4 MG X1ED STA 08/15 1503 DC 12/ 10 IV 12/ 1504 1553 Patient Discharge Departure Vital Signs/Condition Vital Signs First Documented: Result Date Time Pulse Ox 100 08/15 1506 B/P 163/92 / 1506 B/P Mean 115 12/ 1506 O2 Delivery Room air 08/15 1506 Temp 36.9 12/ 1506 Pulse 110 12/ 1506 Resp 20 / 1506 Last Documented: Result Date Time Pulse Ox 100 08/15 2030 B/P 120/70 08/15 2030 B/P Mean 86 / 2030 O2 Delivery Room air 08/15 2030 Temp 36.8 08/15 2030 Pulse 90 08/15 2030 Resp 18 08/15 2030 All vital signs available at the time of this en try have been reviewed. José Rader 08/15/20 1534: HPI-General Illness Free Text HPI Notes Free Text HPI Notes pelvic pain Presentation Chief Complaint Abdominal pain Hx Obtained From Patient Sudden in Onset? No Onset Occurred Today Symptom Duration Constant Progression since Onset Constant Exacerbated by Nothing Relieved by Nothing Context Additional Context Patient with PMhx of seizure disorder no on meds comes in complaining of lower abdominal pain radiating to the upper abdomen, pain is intense, /10 associated with 2 episodes of vomiting dark content, patient went to [facility] ER and she got CT abdomen that showed ovarian cyst, patient has hi story of appendectomy and hysterectomy Review of Systems ROS Statements All systems rev neg except as marked. Review of Systems Constitutional Denies: Chills, Fatigue, Lethargy. Eyes Denies: Discharge R, Discharge L. Ears/Nose/Throat Denies: Ear ringing R, Ear ringing L. Respiratory Denies: Shortness of breath. Cardiovascular Denies: Parox nocturnal dyspnea. GI Reports: Abdominal pain, Nausea, Vomiting. Denie s: Diarrhea, Hematemesis. Female Reports: Pelvic pain. Denies: , Vaginal bleeding - abnl, Vaginal discharge. Musculoskeletal Denies: Joint pain, Lumbar pain. Hematologic Denies: Bruising. Endocrine Denies: Polyphagia. Skin Denies: Erythema, Jaundice. Allergy/Immun Denies: Sneezing. Neurologic Denies: Dizziness. Psychiatric Reports: Anxiety. Denies: Agitation. Past Medical History - Adult Stated Complaint ABDOMINAL PAIN,DIZZINESS,VOMITI NG,V Allergies Coded Allergies: metoclopramide (From REGLAN) (Severe, SHORTNESS OF BREATH 08/15/20) latex (Intermediate, RASH 08/15/20) adhesive tape (Mild, RASH 08/15/20) lamotrigine (From LAMICTAL) (Mild, RASH 08/15/20 ) Penicillins (RASH 08/15/20) amoxicillin (RASH 08/15/20) doxycycline (RASH 08/15/20) ketorolac (From TORADOL) (RASH 08/15/20) tramadol (SHORTNESS OF BREATH 08/15/20) trazodone (RASH-UNKNOWN 08/15/20) Home Medications Discontinued Scripts oxyCODONE HCL/ACETAMINOPHEN (PERCOCET 5/325 MG) 1 TAB PO Q4H PRN PRN MODERATE PAIN oxyCODONE HCL/ACETAMINOPHEN (PERCOCET 5/325 MG) 1 TAB PO Q4H PRN PRN MODERATE PAIN #20 TAB Prov: 07/09/18 DC: 08/15/20 1540 Therapy completed PROMETHAZINE (PHENERGAN) 12.5 MG PO Q6H PRN NAUS EA PROMETHAZINE (PHENERGAN) 12.5 MG PO Q6H PRN MONI SEA #30 TAB Prov: 07/09/18 DC: 08/15/20 1540 Therapy completed CYCLOBENZAPRINE HCL (FLEXERIL) 5 MG PO TID PRN P RN ABDOMINAL CRAMPS CYCLOBENZAPRINE HCL (FLEXERIL) 5 MG PO TID PRN PRN ABDOMINAL CRAMPS #30 TAB Prov: 07/09/18 DC: 08/15/20 1540 Therapy completed Reported Medications ACETAMINOPHEN/CODEINE (TYLENOL WITH CODE INE #3 300/30 MG) 1 TAB PO Q4H PRN PRN ACUTE PAIN Discontinued Reported Medications PNV WITHOUT CA/FE FUM/FA (-U) (Unknown D ose) PO DAILY levETIRAcetam (KEPPRA) 500 MG PO BID Review of Nursing Notes Rev avail, and agree Physical Exam Vital Signs Vital Signs First Documented: Result Date Time Pulse Ox 100 08/15 1506 B/P 163/92 08/15 150 B/P Mean 115 08/15 1506 O2 Delivery Room air 08/15 1506 Temp 36.9 08/15 150 Pulse 110 08/15 150 Resp 20 08/15 1506 Last Documented: Result Date Time Pulse Ox 100 08/15 2030 B/P 120/70 08/15 2030 B/P Mean 86 08/15 2030 O2 Delivery Room air 08/15 2030 Temp 36.8 08/15 2030 Pulse 90 08/15 2030 Resp 18 08/15 2030 Review of Vital Signs Reviewed Basic Physical Exam Basic PE GEN: Well appearing /NAD, HEAD: Atraumatic/NC, EYES: PERRL, conj clear, ENT: Membranes moist, NECK: Supple, RESP: No res p distress, CV: Reg rate rhythm, EXT: No gross abnormality, SKIN: No rash es, warm/dry, NEURO: alert oriented, NEURO: gross movement NL, PSYCH: NL th ought content Physical Exam General/Const General/Const Awake, Alert Abdomen/GI Abdomen/GI Soft Tenderness/Guarding/Rebound Tender suprapubic. Interpretation Diagnostics Lab Results Interpretation Results Laboratory Tests 08/15/20 1535: [Embedded Image Not Available] Laboratory Tests: 08/15 08/15 1635 1535 Chemistry Sodium (135 - 145 mEq/L) 138 Potassium (3.5 - 5.0 mEq/L) 3.7 Chloride (100 - 115 mEq/L) 104 Carbon Dioxide (22 - 31 mEq/L) 27 Anion Gap (10 - 20) 10.50 BUN (7 - 18 mg/dL) 10 Creatinine (0.5 - 1.0 mg/dL) 1.0 Glomerular Filtr Rate (>60 ml/min) 66 Glucose (65 - 110 mg/dL) 106 Calcium (8.4 - 10.2 mg/dL) 8.9 Hematology WBC (6.6 - 12.1 K/mm3) 9.0 RBC (3.45 - 5.01 M/mm3) 4.09 Hgb (10.7 - 13.9 g/dL) 12.4 Hct (32.1 - 42.1 %) 38.9 MCV (84.1 - 94.8 fL) 95 H MCH (27 - 35 pg) 30.3 MCHC (32.2 - 34.1 gm/dL) 31.9 L RDW (12.4 - 16.5 %) 13.0 Plt Count (133 - 385 K/mm3) 327 MPV (9.1 - 12.7 fl) 9.2 Neut % (Auto) (56.5 - 79.4 %) 65.7 Lymph % (Auto) (14.3 - 34.3 %) 24.1 [place] % (Auto) (5.1 - 10.4 %) 8.3 Eos % (Auto) (0.1 - 3.0 %) 1.0 Baso % (Auto) (0.1 - 1.0 %) 0.6 Neut # (Auto) (K/mm3) 5.9 Lymph # (Auto) (K/mm3) 2.2 [place] # (Auto) (K/mm3) 0.7 Eos # (Auto) (K/mm3) 0.09 Baso # (Auto) (K/mm3) 0.1 Miscellaneous Maternal Serum HCG <1 Urines Urine Color (YELLOW) YELLOW Urine Appearance (CLEAR) CLEAR Urine pH (5 - 9) 5.0 Ur Specific [place] (1.001 - 1.035) >1.035 H Urine Protein (NEG) NEGATIVE Urine Glucose (UA) (NEG) NEGATIVE Urine Ketones (NEG) NEGATIVE Urine Blood (NEG) 2+ H Urine Nitrite (NEG) NEG Urine Bilirubin (NEG) NEGATIVE Urine Urobilinogen (NEG mg/dL) NEGATIVE Ur Leukocyte Esterase (NEG) NEG Urine RBC (NONE SEEN #/hpf) 0-2 Urine WBC (NONE SEEN #/hpf) 0-2 Ur Epithelial Cells (RARE - FEW #/HPF) RARE Urine Mucus (NONE SEEN) RARE Recent Impressions: ULTRASOUND - US TRANSVAGINAL W/PELVIS 08/15 1751 Report Impression - Status: SIGNED Entered: 08/15/20201836 IMPRESSION: 1. Abnormal small volume free pelvic fluid. 2. Nonvisualization of the uterus and ovaries. SL: SG-Pepper Impression By: [email or web address] - Rubin Hairston MD ULTRASOUND - US PELVIS COMPLETE 08/15 1751 Report Impression - Status: SIGNED Entered: 08/15/20201836 IMPRESSION: 1. Abnormal small volume free pelvic fluid. 2. Nonvisualization of the uterus and ovaries. SL: SG-H Impression By: [email or web address] - Rubin Hairston MD Lab Imaging Statement Laboratory radiographic studies reviewed and con sidered in the medical decision-making. Patient Discharge Departure Vital Signs/Condition Condition Stable Clinical Impression Clinical Impression Primary Impression: Pelvic pain Pt/Provider Handoff Shift Change Note This patient's care has been transferred to the incoming physician. We discussed : the patient's chief complaint; labs an d imaging that have been completed and those that are still pending; procedures that hinojosa ve been completed and those remaining to be done; any treatment provided and the patient's response to treatment; input from consultants (if any); the remaining treatment plan. The incoming physician will follow up on all pending labs and imaging, make any necessary changes to the cur rent impression and/or treatment plan and provide a final disposition. Handoff Note This patient's care has been transferred to and accepted by []. We discussed: the patient's chief complaint; labs and imaging that have been completed and those that are still pending; procedures that hinojosa ve been completed and those remaining to be done; any treatment provided and the patient's response to treatment; any significant change in con dition; input from consultants if any; the treatment plan prior to the transfer of care. The accepting physician will follow up on all pending lab s and imaging and make any necessary changes to the current impression and/or treatment plan. The [facility] physician is now responsible for the patient's care and final dis position. Care Transferred to Dr Amanda Care Transferred at 1800 Discussed Complaint(s) Yes Laboratory Evaluation Lab evaluation discussed Imaging Studies Ordered, not yet done Thomas Chamberlain 08/15/202111: HPI-General Illness General Initial Greet Date/Time 08/15/20 1503 Physical Exam Physical Exam Genitourinary Text/Dict Notes cuff intact, small area of erythema noted, no bl eeding Re-Evaluation MDM Re-Evaluation/Progress #1 Text/Dict Note Dr. Brooke at bedside Time of Re-Eval 2237 Re-Eval Status Unchanged Consultation Consultation Referral/Consult Name Zulya Brooke MD Bead Maker Called Hospitalist Requested Call Time 2112 Requested Call Date 08/15/20 Call Returned Call returned Call Returned Time 2112 Call Returned Date 08/15/20 Bead Maker Will see patient Free Text MDM Notes Free Text MDM Notes Seen by Dr Brooke, will admit for intractable p elvic pain. Patient Discharge Departure Disposition Decision Admit Admit Physician Name Zulay Brooke MD Admit Physician Hospitalist Request Time 2313 Request Date 08/15/20 )( Admission Accepts Yes )( Accepted Time 2313 )( Accepted Date 08/15/20 Discharge/Care Plan Counseled Regarding Diagnosi s, Lab results, Imaging studies, Need for admission at 1741 at 2320 Addendum 1: 08/15/20 180 by José Rader MD Patient Addendum Addendum at 1806 at 0217 Addendum 2: 08/15/20 180 by José Rader MD Patient Addendum Addendum at 1807 Addendum 3: 08/15/200 by José Rader MD Patient Addendum Addendum at 1810 RPT #:[id number] END OF REPORT 2020-08-15 15:05:00-00:00 [facility] ([facility]) EMERGENCY PROVIDER REPORT REPORT#:[id number] REPORT STATUS: Signed DATE:08/15/20 TIME: 150 PATIENT: LONA MARIE UNIT #: [id number] ROOM/BED: 2660-A AGE: 30 SEX: F PCP PHYS: Zulay Brooke MD SERVICE AUTHOR: Andressa Razo MD * ALL edits or amendments must be made on the el [employer]/computer document * See Addendum Andressa Razo I 08/15/20 1505: HPI-General Illness General Initial Greet Date/Time 08/15/20 1503 Provider in Triage Greet Note I have greeted and performed a focused rapid initial assessment of this patient. A comprehensive ED assessment and evaluation of the patient, analysis of all test results, and completion of the medical deci irasema-making process will be conducted by additional ED providers. HPI Chief Complaint Abdominal pain Onset Occurred Sudden, Today Severity Pain level 10 out of 10 (ongoing since am sharp pain) PE General/Const Mild distress HEENT Atraumatic, Normocephalic Respiratory/Chest No respiratory distress Abdomen/GI Tenderness present (radiation to low er) MSE Not Complete The medical screening exam i s not complete. Further evaluation and/or treatment is required. The patient will be re-directed to the emergency department. Past Medical History - Adult Home Medications Discontinued Scripts oxyCODONE HCL/ACETAMINOPHEN (PERCOCET 5/325 MG) 1 TAB PO Q4H PRN PRN MODERATE PAIN oxyCODONE HCL/ACETAMINOPHEN (PERCOCET 5/325 MG) 1 TAB PO Q4H PRN PRN MODERATE PAIN #20 TAB Prov: 07/09/18 DC: 08/15/20 1540 Therapy completed PROMETHAZINE (PHENERGAN) 12.5 MG PO Q6H PRN NAUS EA PROMETHAZINE (PHENERGAN) 12.5 MG PO Q6H PRN MONI SEA #30 TAB Prov: 07/09/18 DC: 08/15/20 1540 Therapy completed CYCLOBENZAPRINE HCL (FLEXERIL) 5 MG PO TID PRN P RN ABDOMINAL CRAMPS CYCLOBENZAPRINE HCL (FLEXERIL) 5 MG PO TID PRN PRN ABDOMINAL CRAMPS #30 TAB Prov: 07/09/18 DC: 08/15/20 1540 Therapy completed Discontinued Reported Medications PNV WITHOUT CA/FE FUM/FA (-U) (Unknown D ose) PO DAILY levETIRAcetam (KEPPRA) 500 MG PO BID Past Medical History: Reports: Seizure disorder. Past Surgical History: Reports: Appendectomy. Re-Evaluation MDM ED Course Medication(s) Ordered Medication(s) Ordered: Central Nervous System Agents Sig/Arina Start time Last Medication Dose Route Stop Time Status Admin Fentanyl Citrate 50 MCG X1ED STA 08/15 2109 DC 08/15 IV 08/15 Hydromorphone HCl 0.5 MG X1ED STA 08/15 2011 D Cr 12/10 IV 08/15 Hydromorphone HCl 0.5 MG X1ED STA 08/15 1843 DC r / IV 08/15 1844 1904 Hydromorphone HCl 1 MG X1ED STA 08/15 1652 DCr 12/ IV 08/15 1653 1724 Morphine Sulfate 4 MG X1ED STA 08/15 1503 DCr 1 2/10 IV 10 1504 1553 Electrolytic, Caloric, And Jair Sig/Arina Start time Last Medication Dose Route Stop Time Status Admin Sodium Chloride 1,000 ML X1ED STA 08/15 1653 D C / IV 08/15 1654 1726 Sodium Chloride 1,000 ML X1ED STA 08/15 1515 DC 12/10 IV 12 1516 1552 Gastrointestinal Drugs Sig/Arina Start time Last Medication Dose Route Stop Time Status Admin Ondansetron HCl 4 MG X1ED STA 08/15 1503 DC 12/ IV 08/15 1504 [facility]: HPI-General Illness Free Text HPI Notes Free Text HPI Notes pelvic pain Presentation Chief Complaint Abdominal pain Hx Obtained From Patient Sudden in Onset? No Onset Occurred Today Symptom Duration Constant Progression since Onset Constant Exacerbated by Nothing Relieved by Nothing Context Additional Context Patient with PMhx of seizure disorder no on meds comes in complaining of lower abdominal pain radiating to the upper abdomen, pain is intense, 06/15 associated with 2 episodes of vomiting dark content, patient went to [facility] ER and she got CT abdomen that showed ovarian cyst, patient has hi story of appendectomy and hysterectomy Review of Systems ROS Statements All systems rev neg except as marked. Review of Systems Constitutional Denies: Chills, Fatigue, Lethargy. Eyes Denies: Discharge R, Discharge L. Ears/Nose/Throat Denies: Ear ringing R, Ear ringing L. Respiratory Denies: Shortness of breath. Cardiovascular Denies: Parox nocturnal dyspnea. GI Reports: Abdominal pain, Nausea, Vomiting. Denie s: Diarrhea, Hematemesis. Female Reports: Pelvic pain. Denies: , Vaginal bleeding - abnl, Vaginal discharge. Musculoskeletal Denies: Joint pain, Lumbar pain. Hematologic Denies: Bruising. Endocrine Denies: Polyphagia. Skin Denies: Erythema, Jaundice. Allergy/Immun Denies: Sneezing. Neurologic Denies: Dizziness. Psychiatric Reports: Anxiety. Denies: Agitation. Past Medical History - Adult Stated Complaint ABDOMINAL PAIN,DIZZINESS,VOMITI NG,V Allergies Coded Allergies: metoclopramide (From REGLAN) (Severe, SHORTNESS OF BREATH 08/15/20) latex (Intermediate, RASH 08/15/20) adhesive tape (Mild, RASH 08/15/20) lamotrigine (From LAMICTAL) (Mild, RASH 08/15/20 ) Penicillins (RASH 08/15/20) amoxicillin (RASH 08/15/20) doxycycline (RASH 08/15/20) ketorolac (From TORADOL) (RASH 08/15/20) tramadol (SHORTNESS OF BREATH 08/15/20) trazodone (RASH-UNKNOWN 08/15/20) Review of Nursing Notes Rev avail, and agree Physical Exam Vital Signs Vital Signs First Documented: Result Date Time Pulse Ox 100 08/15 1506 B/P 163/92 08/15 1506 B/P Mean 115 08/15 1506 O2 Delivery Room air 08/15 1506 Temp 36.9 08/15 1506 Pulse 110 08/15 1506 Resp 20 08/15 1506 Last Documented: Result Date Time Pulse Ox 99 08/16 0000 B/P 134/71 / 0000 B/P Mean 92 / 0000 O2 Delivery Room air / 0000 Temp 37.0 12/ 0000 Pulse 84 12/ 0000 Resp 18 12/ 0000 Review of Vital Signs Reviewed Basic Physical Exam Basic PE GEN: Well appearing /NAD, HEAD: Atraumatic/NC, EYES: PERRL, conj clear, ENT: Membranes moist, NECK: Supple, RESP: No res p distress, CV: Reg rate rhythm, EXT: No gross abnormality, SKIN: No rash es, warm/dry, NEURO: alert oriented, NEURO: gross movement NL, PSYCH: NL th ought content Physical Exam General/Const General/Const Awake, Alert Abdomen/GI Abdomen/GI Soft Tenderness/Guarding/Rebound Tender suprapubic. Interpretation Diagnostics Lab Results Interpretation Results Laboratory Tests 08/15/20 1535: [Embedded Image Not Available] Laboratory Tests: 08/15 08/15 1635 1535 Chemistry Sodium (135 - 145 mEq/L) 138 Potassium (3.5 - 5.0 mEq/L) 3.7 Chloride (100 - 115 mEq/L) 104 Carbon Dioxide (22 - 31 mEq/L) 27 Anion Gap (10 - 20) 10.50 BUN (7 - 18 mg/dL) 10 Creatinine (0.5 - 1.0 mg/dL) 1.0 Glomerular Filtr Rate (>60 ml/min) 66 Glucose (65 - 110 mg/dL) 106 Calcium (8.4 - 10.2 mg/dL) 8.9 Hematology WBC (6.6 - 12.1 K/mm3) 9.0 RBC (3.45 - 5.01 M/mm3) 4.09 Hgb (10.7 - 13.9 g/dL) 12.4 Hct (32.1 - 42.1 %) 38.9 MCV (84.1 - 94.8 fL) 95 H MCH (27 - 35 pg) 30.3 MCHC (32.2 - 34.1 gm/dL) 31.9 L RDW (12.4 - 16.5 %) 13.0 Plt Count (133 - 385 K/mm3) 327 MPV (9.1 - 12.7 fl) 9.2 Neut % (Auto) (56.5 - 79.4 %) 65.7 Lymph % (Auto) (14.3 - 34.3 %) 24.1 [place] % (Auto) (5.1 - 10.4 %) 8.3 Eos % (Auto) (0.1 - 3.0 %) 1.0 Baso % (Auto) (0.1 - 1.0 %) 0.6 Neut # (Auto) (K/mm3) 5.9 Lymph # (Auto) (K/mm3) 2.2 [place] # (Auto) (K/mm3) 0.7 Eos # (Auto) (K/mm3) 0.09 Baso # (Auto) (K/mm3) 0.1 Miscellaneous Maternal Serum HCG <1 Urines Urine Color (YELLOW) YELLOW Urine Appearance (CLEAR) CLEAR Urine pH (5 - 9) 5.0 Ur Specific [place] (1.001 - 1.035) >1.035 H Urine Protein (NEG) NEGATIVE Urine Glucose (UA) (NEG) NEGATIVE Urine Ketones (NEG) NEGATIVE Urine Blood (NEG) 2+ H Urine Nitrite (NEG) NEG Urine Bilirubin (NEG) NEGATIVE Urine Urobilinogen (NEG mg/dL) NEGATIVE Ur Leukocyte Esterase (NEG) NEG Urine RBC (NONE SEEN #/hpf) 0-2 Urine WBC (NONE SEEN #/hpf) 0-2 Ur Epithelial Cells (RARE - FEW #/HPF) RARE Urine Mucus (NONE SEEN) RARE Recent Impressions: ULTRASOUND - US TRANSVAGINAL W/PELVIS 08/15 1751 Report Impression - Status: SIGNED Entered: 08/15/20201836 IMPRESSION: 1. Abnormal small volume free pelvic fluid. 2. Nonvisualization of the uterus and ovaries. SL: ANTON Impression By: Jose L Hairston MD ULTRASOUND - US PELVIS COMPLETE 08/15 1751 Report Impression - Status: SIGNED Entered: 08/15/20201836 IMPRESSION: 1. Abnormal small volume free pelvic fluid. 2. Nonvisualization of the uterus and ovaries. SL: ANTON Impression By: Jose L Hairston MD Lab Imaging Statement Laboratory radiographic studies reviewed and con sidered in the medical decision-making. Patient Discharge Departure Vital Signs/Condition Vital Signs First Documented: Result Date Time Pulse Ox 100 08/15 1506 B/P 163/92 08/15 1506 B/P Mean 115 08/15 1506 O2 Delivery Room air 08/15 1506 Temp 36.9 08/15 1506 Pulse 110 08/15 1506 Resp 20 08/15 1506 Last Documented: Result Date Time Pulse Ox 99 / 0000 B/P 134/71 / 0000 B/P Mean 92 12/ 0000 O2 Delivery Room air 12 0000 Temp 37.0 12 0000 Pulse 84 12/ 0000 Resp 18 08/16 0000 All vital signs available at the time of this en try have been reviewed. Condition Stable Clinical Impression Clinical Impression Primary Impression: Pelvic pain Pt/Provider Handoff Shift Change Note This patient's care has been transferred to the incoming physician. We discussed : the patient's chief complaint; labs an d imaging that have been completed and those that are still pending; procedures that hinojosa ve been completed and those remaining to be done; any treatment provided and the patient's response to treatment; input from consultants (if any); the remaining treatment plan. The incoming physician will follow up on all pending labs and imaging, make any necessary changes to the cur rent impression and/or treatment plan and provide a final disposition. Handoff Note This patient's care has been transferred to and accepted by []. We discussed: the patient's chief complaint; labs and imaging that have been completed and those that are still pending; procedures that hinojosa ve been completed and those remaining to be done; any treatment provided and the patient's response to treatment; any significant change in con dition; input from consultants if any; the treatment plan prior to the transfer of care. The accepting physician will follow up on all pending lab s and imaging and make any necessary changes to the current impression and/or treatment plan. The [facility] physician is now responsible for the patient's care and final dis position. Care Transferred to Dr Amanda Care Transferred at 1800 Discussed Complaint(s) Yes Laboratory Evaluation Lab evaluation discussed Imaging Studies Ordered, not yet done Thomas Chamberlain 08/15/202111: Physical Exam Physical Exam Genitourinary Text/Dict Notes cuff intact, small area of erythema noted, no bl eeding Re-Evaluation MDM Re-Evaluation/Progress #1 Text/Dict Note Dr. Brooke at bedside Time of Re-Eval 2237 Re-Eval Status Unchanged Consultation Consultation Referral/Consult Name Zulay Brooke MD Bead Maker Called Hospitalist Requested Call Time 2112 Requested Call Date 08/15/20 Call Returned Call returned Call Returned Time 2112 Call Returned Date 08/15/20 Bead Maker Will see patient Free Text MDM Notes Free Text MDM Notes Seen by Dr Brooke, will admit for intractable p elvic pain. Patient Discharge Departure Disposition Decision Admit Admit Physician Name Zulay Brooke MD Admit Physician Hospitalist Request Time 2313 Request Date 08/15/20 )( Admission Accepts Yes )( Accepted Time 2313 )( Accepted Date 08/15/20 Discharge/Care Plan Counseled Regarding Diagnosi s, Lab results, Imaging studies, Need for admission at 1741 at 2320 Electronically Signed by Andressa Razo MD on at 1159 Addendum 1: 08/15/20 1806 by José Rader MD Patient Addendum Addendum at 1806 at 0217 Addendum 2: 08/15/201806 by José Rader MD Patient Addendum Addendum at 1807 Addendum 3: 08/15/201809 by José Rader MD Patient Addendum Addendum at 1810 RPT #:[id number] END OF REPORT 2020-08-15 15:05:00-00:00 [facility] EMERGENCY PROVIDER REPORT REPORT#:[id number] REPORT STATUS: Signed DATE:08/15/20 TIME: 1505 PATIENT: LONA MARIE UNIT #: [id number] ROOM/BED: [address] AGE: 30 SEX: F PCP PHYS: Zulay Brooke MD SERVICE AUTHOR: Andressa Razo MD * ALL edits or amendments must be made on the [employer]/computer document * See Addendum Andressa Razo I 08/15/20 1505: HPI-General Illness General Initial Greet Date/Time 08/15/20 1503 Provider in Triage Greet Note I have greeted and performed a focused rapid initial assessment of this patient. A comprehensive ED assessment and evaluation of the patient, analysis of all test results, and completion of the medical deci irasema-making process will be conducted by additional ED providers. HPI Chief Complaint Abdominal pain Onset Occurred Sudden, Today Severity Pain level 10 out of 10 (ongoing since am sharp pain) PE General/Const Mild distress HEENT Atraumatic, Normocephalic Respiratory/Chest No respiratory distress Abdomen/GI Tenderness present (radiation to low er) MSE Not Complete The medical screening exam i s not complete. Further evaluation and/or treatment is required. The patient will be re-directed to the emergency department. Past Medical History - Adult Home Medications Discontinued Scripts oxyCODONE HCL/ACETAMINOPHEN (PERCOCET 5/325 MG) 1 TAB PO Q4H PRN PRN MODERATE PAIN oxyCODONE HCL/ACETAMINOPHEN (PERCOCET 5/325 MG) 1 TAB PO Q4H PRN PRN MODERATE PAIN #20 TAB Prov: 07/09/18 DC: 08/15/20 1540 Therapy completed PROMETHAZINE (PHENERGAN) 12.5 MG PO Q6H PRN NAUS EA PROMETHAZINE (PHENERGAN) 12.5 MG PO Q6H PRN MONI SEA #30 TAB Prov: 07/09/18 DC: 08/15/20 1540 Therapy completed CYCLOBENZAPRINE HCL (FLEXERIL) 5 MG PO TID PRN P RN ABDOMINAL CRAMPS CYCLOBENZAPRINE HCL (FLEXERIL) 5 MG PO TID PRN PRN ABDOMINAL CRAMPS #30 TAB Prov: 07/09/18 DC: 08/15/20 1540 Therapy completed Discontinued Reported Medications PNV WITHOUT CA/FE FUM/FA (-U) (Unknown D ose) PO DAILY levETIRAcetam (KEPPRA) 500 MG PO BID Past Medical History: Reports: Seizure disorder. Past Surgical History: Reports: Appendectomy. Re-Evaluation MDM ED Course Medication(s) Ordered Medication(s) Ordered: Central Nervous System Agents Sig/Arina Start time Last Medication Dose Route Stop Time Status Admin Fentanyl Citrate 50 MCG X1ED STA 08/15 2109 DC 08/15 IV 08/15 2110 2218 Hydromorphone HCl 0.5 MG X1ED STA 08/15 2011 DC r 10 IV 08/15 2012 2044 Hydromorphone HCl 0.5 MG X1ED STA 08/15 1843 DC r 08/15 IV 08/15 1844 1904 Hydromorphone HCl 1 MG X1ED STA 08/15 1652 DCr 12/10 IV 08/15 1653 1724 Morphine Sulfate 4 MG X1ED STA 08/15 1503 DCr 1 10/16 IV 08/15 1504 1553 Electrolytic, Caloric, And Jair Sig/Arina Start time Last Medication Dose Route Stop Time Status Admin Sodium Chloride 1,000 ML X1ED STA 08/15 1653 DC 12/10 IV 08/15 1654 1726 Sodium Chloride 1,000 ML X1ED STA 08/15 1515 DC 08/15 IV 08/15 1516 1552 Gastrointestinal Drugs Sig/Arina Start time Last Medication Dose Route Stop Time Status Admin Ondansetron HCl 4 MG X1ED STA 08/15 1503 DC IV 08/15 1504 1553 José Rader 08/15/20 1534: HPI-General Illness Free Text HPI Notes Free Text HPI Notes pelvic pain Presentation Chief Complaint Abdominal pain Hx Obtained From Patient Sudden in Onset? No Onset Occurred Today Symptom Duration Constant Progression since Onset Constant Exacerbated by Nothing Relieved by Nothing Context Additional Context Patient with PMhx of seizure disorder no on meds comes in complaining of lower abdominal pain radiating to the upper abdomen, pain is intense, 06/15 associated with 2 episodes of vomiting dark content, patient went to [facility] ER and she got CT abdomen that showed ovarian cyst, patient has hi story of appendectomy and hysterectomy Review of Systems ROS Statements All systems rev neg except as marked. Review of Systems Constitutional Denies: Chills, Fatigue, Lethargy. Eyes Denies: Discharge R, Discharge L. Ears/Nose/Throat Denies: Ear ringing R, Ear ringing L. Respiratory Denies: Shortness of breath. Cardiovascular Denies: Parox nocturnal dyspnea. GI Reports: Abdominal pain, Nausea, Vomiting. Denie s: Diarrhea,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 1.0 mg/dL) 0.40 AST (15 - 37 IUnit/L) 21 ALT (15 - 65 IUnit/L) 27 Total Alk Phosphatase (20 - 125 IUnit/L) 69 Total Protein (6.4 - 8.2 g/dL) 8.8 H Albumin (3.4 - 5.0 g/dL) 4.70 Lipase (73 - 393 IUnit/L) 111 Serum , Qual (NEGATIVE) SERUM NEGATIVE Hematology WBC (4.5 - 11.0 x10 3/uL) 8.67 RBC (3.54 - 5.02 x10 6/uL) 4.86 Hgb (11.0 - 15.0 g/dL) 14.5 Hct (33.0 - 45.0 %) 44.1 MCV (81.0 - 99.0 fL) 90.7 MCH (27.0 - 33.0 pg) 29.8 MCHC (33.0 - 37.0 g/dL) 32.9 L RDW (11.5 - 14.5 %) 13.6 Plt Count (150 - 400 x10 3/uL) 427 H MPV (7.0 - 9.0 fL) 8.9 Neut % (Auto) (56.0 - 77.0 %) 84.3 H Lymph % (Auto) (14.0 - 32.0 %) 10.5 L [place] % (Auto) (4.8 - 9.0 %) 4.6 L Eos % (Auto) (0.3 - 3.7 %) 0.0 L Baso % (Auto) (0.0 - 2.0 %) 0.1 Neut # (Auto) (2.0 - 7.6 x10 3/uL) 7.31 Lymph # (Auto) (1.0 - 3.8 x10 3/uL) 0.91 L [place] # (Auto) (0.1 - 0.8 x10 3/uL) 0.40 Eos # (Auto) (0.0 - 0.2 x10 3/uL) 0.00 Baso # (Auto) (0.0 - 0.2 x10 3/uL) 0.01 Abs Immat Gran (auto) (0.00 - 0.03 x10 3/uL) 0. 04 H Add Manual Diff NO Immature Gran % (0.0 - 2.0 %) 0.5 Nucleated RBC % (0 - 0 %) 0.0 Nucleated RBCs # (Man) (0.0 - 0.1 x10 3/uL) 0.0 0 Urines Urine Color (YEL/STRAW) STRAW Urine Appearance (CLEAR) CLEAR Urine pH (5.0 - 7.0) 6.0 Ur Specific [place] (1.005 - 1.030) 1.002 L Urine Protein (NEGATIVE) NEGATIVE Urine Glucose (UA) (NEGATIVE) NEGATIVE Urine Ketones (NEGATIVE) NEGATIVE Urine Blood (NEGATIVE) 2+ H Urine Nitrite (NEGATIVE) NEGATIVE Urine Bilirubin (NEGATIVE) NEGATIVE Urine Urobilinogen (0.2 - 1.0 mg/dL) 0.2 Ur Leukocyte Esterase (NEGATIVE) 1+ H Urine RBC (0 - 3 RBC/HPF) 4-10 Urine WBC (0 - 3 WBC/HPF) 0-3 Ur Squamous Epith Cells (NONE SEEN /HPF) 0-5 Urine Bacteria (NONE SEEN /HPF) TRACE Recent Impressions: CAT SCAN - CT ABD PELVIS W/CONT 02/28 2235 Report Impression - Status: SIGNED Entered: 02/28/20192319 IMPRESSION: 1. No acute CT abnormalities of the abdomen or p león are detected. The finding of free intraperitoneal air is presu mably postoperative given the patient's recent surgical history. 2. 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 SL: 131 Impression By: Britt Castro M.D. Lab Imaging Statement Laboratory radiographic studies reviewed and con sidered in the medical decision-making. Point of Care Testing Pulse Oximetry Pulse Ox % 98 On: Room air Interpretation Interpreted by me, Pulse oximetr y normal Time 2119 ECG #1 Interpretation Date 02/28/19 Time 2153 Interpreted by ED physician NL ECG Interpretation Normal sinus rhythm, No ST FAIHT, Normal ST waves, Normal intervals Rate [address] Abdomen/Pelvis Study type IV contrast Text/Dict Note IMPRESSION: 1. No acute CT abnormalities of the abdomen or p león are detected. The finding of free intraperitoneal air is presu mably postoperative given the patient's recent surgical history. 2. Herniation of a portion o f the right lateral rectal wall through a defect in the pelvic floor musculature, compatible with po sterior perineal hernia. Interpretation/Wet Read by Interpret - Radiolog ist Reviewed by ED physician Portions of this section were scribed by Rik Quintero on 03/01/19 at 0204 Re-Evaluation MDM Free Text MDM Notes Free Text MDM Notes Pt with chronic pain (diffic ult to control at baseline) here with post op pain s /p exploratory laparoscopy. Pain unable to be controlled with IV medications. I transferred patient for cont inuity of care to [facility] as that is where pt's surgeon is located. Abdominal examin ation is reassuring, she has no rebound/no guarding, not a new surgical issue at this time. ED Course Medication(s) Ordered Medication(s) Ordered: Central Nervous System Agents Sig/Arina Start time Last Medication Dose Route Stop Time Status Admin Hydromorphone HCl 1 MG X1ED STA 03/01 0043 DC 0 03/01 IV 03/01 0044 0051 Morphine Sulfate 8 MG X1ED STA 02/29 2128 DC IV 02/28 Diagnostic Agents Sig/Arina Start time Last Medication Dose Route Stop Time Status Admin Iopamidol 100 ML .STK-MED ONE 02/29 2236 DC IV 02/28 Electrolytic, Caloric, And Jair Sig/Arina Start time Last Medication Dose Route Stop Time Status Admin Sodium Chloride 0 ASDIR PRN 02/28 2130 AC IV 03/01 2028 Sodium Chloride 1,000 ML X1ED STA 02/28 2129 DC 02/28 IV 02/28 Sodium Chloride 1,000 ML X1ED STA 02/29 2128 DC 02/28 IV 02/28 2227 213 Gastrointestinal Drugs Sig/Arina Start time Last Medication Dose Route Stop Time Status Admin Ondansetron HCl 4 MG ONCE PRN 02/28 2130 AC IV 03/30 Portions of this section were scribed by Rik Quintero on 03/01/19 at 0122 Patient Discharge Departure Vital Signs/Condition Vital Signs First Documented: Result Date Time Pulse Ox 98 02/29 2120 B/P 134/85 02/29 2120 B/P Mean 101 02/29 2120 O2 Delivery Room air 02/29 2120 Temp 36.9 02/29 2120 Pulse 114 02/29 2120 Resp 17 02/29 2120 Last Documented: Result Date Time Pulse Ox 100 03/01 444 B/P 152/73 03/01 444 B/P Mean 99 03/01 444 Temp 36.2 03/01 444 Pulse 96 03/01 444 Resp 20 03/01 444 O2 Delivery Room air 02/29 2120 All vital signs available at the time of this en try have been reviewed. Condition Guarded Clinical Impression Clinical Impression Primary Impression: Intractable abdominal pain Disposition Decision Transfer )( Request Time 0127 )( Request Date 03/01/19 Call Returned Time 013 Spoke with: Specialty physician (Dr. Parris amor) Receiving [facility] Transfer Accepted Yes Accepted by: Dr. Parris Mendoza )( Acceptance Time 141 )( Acceptance Date 03/01/19 Transfer Reason Continuity of care Patient Status Stable for transfer Patient Informed Yes Consent Obtained yes Consent Signed by: patient Discharge/Care Plan Counseled Regarding Lab results, Imaging studies , Need for transfer Supervising Physician Note Scribe Statement Rik Crow, 02/28/192112, scribing for an d in the presence of [Dr. Pearson]. Signed By: Rik Crow, 02/28/192112 Provider Scribed Statement I personally performed the s ervices described in this documentation and reviewed the documentation that was dictated to the scrib e(s) in my presence, and it accurately records my words and actions. Cheyenne Albarado, 03/04/19 Portions of this section were scribed by Rik Quintero on 03/01/19 at 0140 Electronically Signed by Cheyenne Pearson MD on 0 03/04/19 at 1509 RPT #:[id number] END OF REPORT 2019-01-25 14:38:00-00:00 [facility] EMERGENCY PROVIDER REPORT REPORT#:[id number] REPORT STATUS: Signed DATE:01/25/19 TIME: 1438 PATIENT: LONA MARIE UNIT #: [id number] ROOM/BED: AGE: 28 SEX: F PCP PHYS: Akiko Awad MD SERVICE AUTHOR: Carolyn Dodson * ALL edits or amendments must be made on the [employer]/computer document * HPI- Female General Confirmed Patient Yes Initial Greet Date/Time 01/25/19 1413 Presentation Chief Complaint Pelvic pain, Vaginal bleeding Hx Obtained From Patient )( Sudden in Onset? No Free Text HPI Notes Free Text HPI Notes 28yo F with PCOS presents to ED with 5 months of vaginal bleeding and worsening cramps. Seen by Linux Engineer with US 2 weeks ago showing PCOS and has diagnostic laparascopy scheduled for February. Removed IUD and gave Depo shot. Saw PCP today who did pelvic exam and referred pt to p ain management but also recommended ED for immediate pain control. Pt reports increased bleeding with clots. Pelvic pain comes in waves. No F/C/N/V. No dysuria. Review of Systems Focused Review of Systems Constitutional Denies: Chills, Fever. Female Reports: Pelvic pain, Vaginal bleeding - abnl. Past Medical History - Adult Stated Complaint pelvic pain/vaginal bleeding Allergies Coded Allergies: metoclopramide (From REGLAN) (Severe, SHORTNESS OF BREATH 08/16/18) latex (Intermediate, RASH 08/16/18) lamotrigine (From LAMICTAL) (Mild, RASH 08/16/18 ) Penicillins (RASH 08/16/18) amoxicillin (RASH 08/16/18) doxycycline (RASH 08/16/18) ketorolac (From TORADOL) (RASH 08/16/18) meperidine (From DEMEROL) (RASH-UNKNOWN 08/16/18 ) tramadol (SHORTNESS OF BREATH 08/16/18) trazodone (RASH-UNKNOWN 08/16/18) Uncoded Allergies: TAPE (Mild, RASH 07/10/18) Home Medications Active Scripts oxyCODONE HCL/ACETAMINOPHEN (PERCOCET 5/325 MG) 1 TAB PO Q4H PRN PRN MODERATE PAIN oxyCODONE HCL/ACETAMINOPHEN (PERCOCET 5/325 MG) 1 TAB PO Q4H PRN PRN MODERATE PAIN #20 TAB Prov: 07/09/18 PROMETHAZINE (PHENERGAN) 12.5 MG PO Q6H PRN NAUS EA PROMETHAZINE (PHENERGAN) 12.5 MG PO Q6H PRN MONI SEA #30 TAB Prov: 07/09/18 CYCLOBENZAPRINE HCL (FLEXERIL) 5 MG PO TID PRN P RN ABDOMINAL CRAMPS CYCLOBENZAPRINE HCL (FLEXERIL) 5 MG PO TID PRN PRN ABDOMINAL CRAMPS #30 TAB Prov: 07/09/18 Reported Medications PNV WITHOUT CA/FE FUM/FA (-U) (Unknown D ose) PO DAILY levETIRAcetam (KEPPRA) 500 MG PO BID Past Medical History: Reports: Seizure disorder. Past Surgical History: Reports: Appendectomy. Smoking status for patients 13 years old or olde r: Current some day smoker Physical Exam Vital Signs Vital Signs First Documented: Result Date Time Pulse Ox 99 01/25 1414 B/P 115/76 01/25 1414 B/P Mean 89 01/25 1414 O2 Delivery Room air 01/25 1414 Temp 36.8 01/25 1414 Pulse 70 01/25 1414 Resp 16 01/25 1414 Last Documented: Result Date Time Pulse Ox 99 01/25 1414 B/P 115/76 01/25 1414 B/P Mean 89 01/25 1414 O2 Delivery Room air 01/25 141 Temp 36.8 01/25 1414 Pulse 70 01/25 1414 Resp 16 01/25 141 Review of Vital Signs Reviewed Focused PE General/Const General/Const Awake, Alert, visibly uncomfortab le Resp/Chest Respiratory/Chest Breath sounds NL, Breath soun ds = bilat, No respiratory distress, No rales, No rhonchi, No wheezing Cardiovascular Cardiovascular Regular rhythm, Heart sounds NL, No gallop, No murmurs, No rubs Abdomen/GI Abdomen/GI Soft, Non-tender, McBurney's non-ten fany, No guarding, No rebound, BS normoactive MS Back Back No CVA tenderness Skin Skin Color NL, No rash, Warm, Dry Genitourinary General Exam deferred (pt had pelvic earlier to day) Interpretation Diagnostics Lab Results Interpretation Results Laboratory Tests 01/25/19 1535: [Embedded Image Not Available] Laboratory Tests: 01/25 1535 Chemistry Sodium (134 - 147 mEq/L) 138 Potassium (3.4 - 5.0 mEq/L) 4.0 Chloride (100 - 108 mEq/L) 107 Carbon Dioxide (21 - 33 mEq/L) 27 Anion Gap (0 - 20) 8 BUN (7 - 18 mg/dL) 13 Creatinine (0.6 - 1.3 mg/dL) 0.8 Glomerular Filtr Rate (110 - 120) 86.7 L Glucose (70 - 110 mg/dL) 74 Calcium (8.0 - 10.5 mg/dL) 8.9 Serum , Qual (NEGATIVE) SERUM NEGATIV E Hematology WBC (4.5 - 11.0 x10 3/uL) 7.38 RBC (3.54 - 5.02 x10 6/uL) 4.46 Hgb (11.0 - 15.0 g/dL) 13.1 Hct (33.0 - 45.0 %) 39.6 MCV (81.0 - 99.0 fL) 88.8 MCH (27.0 - 33.0 pg) 29.4 MCHC (33.0 - 37.0 g/dL) 33.1 RDW (11.5 - 14.5 %) 13.6 Plt Count (150 - 400 x10 3/uL) 351 MPV (7.0 - 9.0 fL) 9.3 H Neut % (Auto) (56.0 - 77.0 %) 58.2 Lymph % (Auto) (14.0 - 32.0 %) 33.1 H [place] % (Auto) (4.8 - 9.0 %) 6.9 Eos % (Auto) (0.3 - 3.7 %) 0.7 Baso % (Auto) (0.0 - 2.0 %) 0.8 Neut # (Auto) (2.0 - 7.6 x10 3/uL) 4.30 Lymph # (Auto) (1.0 - 3.8 x10 3/uL) 2.44 [place] # (Auto) (0.1 - 0.8 x10 3/uL) 0.51 Eos # (Auto) (0.0 - 0.2 x10 3/uL) 0.05 Baso # (Auto) (0.0 - 0.2 x10 3/uL) 0.06 Abs Immat Gran (auto) (0.00 - 0.03 x10 3/uL) 0. 02 Add Manual Diff NO Immature Gran % (0.0 - 2.0 %) 0.3 Nucleated RBC % (0 - 0 %) 0.0 Nucleated RBCs # (Man) (0.0 - 0.1 x10 3/uL) 0.0 0 Recent Impressions: ULTRASOUND - US TRANSVAGINAL NON OB 01/25 1432 Report Impression - Status: SIGNED Entered: 01/25/2019 6148 IMPRESSION: 1. 3 mm endometrium without focal abnormality. 2. The sonographic appearance of the ovaries is consistent with the clinical history of PCOS. 3. It is not known to me whether or not this pat ient is . There is no sonographic evidence of intrauterine or extrauterine gestation. Impression By: Lizbeth Rehana Ramírez M.D. ULTRASOUND - US PELVIS COMPLETE 01/25 1532 Report Impression - Status: SIGNED Entered: 01/25/2019 1548 IMPRESSION: 1. 3 mm endometrium without focal abnormality. 2. The sonographic appearance of the ovaries is consistent with the clinical history of PCOS. 3. It is not known to me whether or not this pat ient is . There is no sonographic evidence of intrauterine or extrauterine gestation. Impression By: Lizbeth Rehana Ramírez M.D. Lab Imaging Statement Laboratory radiographic studies reviewed and con sidered in the medical decision-making. ECG #1 Interpretation ECG Documented in MUSE Yes Date 01/25/19 Time 1437 Interpreted by ED physician (Mehdi) NL ECG Interpretation Normal rate (88), Normal s inus rhythm, No STEMI Rate 88 Re-Evaluation MDM Re-Evaluation/Progress Re-Evaluation/Progress Time of Re-Eval 1634 Re-Eval Status Improved, Currently comfortable. Discussed labs and imaging. Recommended f/u with Linux Engineer for management ED Course Medication(s) Ordered Medication(s) Ordered: Central Nervous System Agents Sig/Arina Start time Last Medication Dose Route Stop Time Status Admin Morphine Sulfate 4 MG X1ED STA 01/25 1437 DC IV 01/25 1438 1543 Gastrointestinal Drugs Sig/Arina Start time Last Medication Dose Route Stop Time Status Admin Ondansetron HCl 4 MG X1ED STA 01/25 1437 DC IV 01/25 1438 1543 Patient Discharge Departure Vital Signs/Condition Vital Signs First Documented: Result Date Time Pulse Ox 99 01/25 1414 B/P 115/76 01/25 1414 B/P Mean 89 01/25 1414 O2 Delivery Room air 01/25 1414 Temp 36.8 01/25 1414 Pulse 70 01/25 1414 Resp 16 01/25 1414 Last Documented: Result Date Time Pulse Ox 99 01/25 1414 B/P 115/76 01/25 1414 B/P Mean 89 01/25 1414 O2 Delivery Room air 01/25 1414 Temp 36.8 01/25 1414 Pulse 70 01/25 1414 Resp 16 01/25 1414 All vital signs available at the time of this en try have been reviewed. Clinical Impression Clinical Impression Primary Impression: PCOS (polycystic ovarian syn drome) Secondary Impressions: Abnormal vaginal bleeding Disposition Decision Discharge )( Discharged to Home Yes )( Time 1635 )( Date 01/25/19 Discharge/Care Plan Counseled Regarding Diagnosi s, Lab results, Imaging studies, Need for follow-up, When to return to ED Prescriptions None at 1652 RPT #:[id number] END OF REPORT 2019-01-25 14:38:00-00:00 [facility] ([facility]) EMERGENCY PROVIDER REPORT REPORT#:[id number] REPORT STATUS: Signed DATE:01/25/19 TIME: 1438 PATIENT: LONA MARIE UNIT #: [id number] ROOM/BED: AGE: 28 SEX: F PCP PHYS: Akiko Awad MD SERVICE AUTHOR: Carolyn Dodson * ALL edits or amendments must be made on the [employer]/computer document * Carolyn Dodson 01/25/19 1438: HPI- Female General Confirmed Patient Yes Presentation Chief Complaint Pelvic pain, Vaginal bleeding Hx Obtained From Patient )( Sudden in Onset? No Free Text HPI Notes Free Text HPI Notes 28yo F with PCOS presents to ED with 5 months of vaginal bleeding and worsening cramps. Seen by Linux Engineer with US 2 weeks ago showing PCOS and has diagnostic laparascopy scheduled for February. Removed IUD and gave Depo shot. Saw PCP today who did pelvic exam and referred pt to p ain management but also recommended ED for immediate pain control. Pt reports increased bleeding with clots. Pelvic pain comes in waves. No F/C/N/V. No dysuria. Review of Systems Focused Review of Systems Constitutional Denies: Chills, Fever. Female Reports: Pelvic pain, Vaginal bleeding - abnl. Past Medical History - Adult Stated Complaint pelvic pain/vaginal bleeding Allergies Coded Allergies: metoclopramide (From REGLAN) (Severe, SHORTNESS OF BREATH 08/16/18) latex (Intermediate, RASH 08/16/18) lamotrigine (From LAMICTAL) (Mild, RASH 08/16/18 ) Penicillins (RASH 08/16/18) amoxicillin (RASH 08/16/18) doxycycline (RASH 08/16/18) ketorolac (From TORADOL) (RASH 08/16/18) meperidine (From DEMEROL) (RASH-UNKNOWN 08/16/18 ) tramadol (SHORTNESS OF BREATH 08/16/18) trazodone (RASH-UNKNOWN 08/16/18) Uncoded Allergies: TAPE (Mild, RASH 07/10/18) Home Medications Active Scripts oxyCODONE HCL/ACETAMINOPHEN (PERCOCET 5/325 MG) 1 TAB PO Q4H PRN PRN MODERATE PAIN oxyCODONE HCL/ACETAMINOPHEN (PERCOCET 5/325 MG) 1 TAB PO Q4H PRN PRN MODERATE PAIN #20 TAB Prov: 07/09/18 PROMETHAZINE (PHENERGAN) 12.5 MG PO Q6H PRN NAUS EA PROMETHAZINE (PHENERGAN) 12.5 MG PO Q6H PRN MONI SEA #30 TAB Prov: 07/09/18 CYCLOBENZAPRINE HCL (FLEXERIL) 5 MG PO TID PRN P RN ABDOMINAL CRAMPS CYCLOBENZAPRINE HCL (FLEXERIL) 5 MG PO TID PRN PRN ABDOMINAL CRAMPS #30 TAB Prov: 07/09/18 Reported Medications PNV WITHOUT CA/FE FUM/FA (-U) (Unknown D ose) PO DAILY levETIRAcetam (KEPPRA) 500 MG PO BID Past Medical History: Reports: Seizure disorder. Past Surgical History: Reports: Appendectomy. Smoking status for patients 13 years old or olde r: Current some day smoker Physical Exam Vital Signs Vital Signs First Documented: Result Date Time Pulse Ox 99 01/25 1414 B/P 115/76 01/25 1414 B/P Mean 89 01/25 1414 O2 Delivery Room air 01/25 1414 Temp 36.8 01/25 1414 Pulse 70 01/25 1414 Resp 16 01/25 1414 Last Documented: Result Date Time Pulse Ox 99 01/25 1414 B/P 115/76 01/25 1414 B/P Mean 89 01/25 1414 O2 Delivery Room air 01/25 1414 Temp 36.8 01/25 1414 Pulse 70 01/25 1414 Resp 16 01/25 1414 Review of Vital Signs Reviewed Focused PE General/Const General/Const Awake, Alert, visibly uncomfortab le Resp/Chest Respiratory/Chest Breath sounds NL, Breath soun ds = bilat, No respiratory distress, No rales, No rhonchi, No wheezing Cardiovascular Cardiovascular Regular rhythm, Heart sounds NL, No gallop, No murmurs, No rubs Abdomen/GI Abdomen/GI Soft, Non-tender, McBurney's non-ten fany, No guarding, No rebound, BS normoactive MS Back Back No CVA tenderness Skin Skin Color NL, No rash, Warm, Dry Genitourinary General Exam deferred (pt had pelvic earlier to day) Interpretation Diagnostics Lab Results Interpretation Results Laboratory Tests 01/25/191534: [Embedded Image Not Available] Laboratory Tests: 01/25 1535 Chemistry Sodium (134 - 147 mEq/L) 138 Potassium (3.4 - 5.0 mEq/L) 4.0 Chloride (100 - 108 mEq/L) 107 Carbon Dioxide (21 - 33 mEq/L) 27 Anion Gap (0 - 20) 8 BUN (7 - 18 mg/dL) 13 Creatinine (0.6 - 1.3 mg/dL) 0.8 Glomerular Filtr Rate (110 - 120) 86.7 L Glucose (70 - 110 mg/dL) 74 Calcium (8.0 - 10.5 mg/dL) 8.9 Serum , Qual (NEGATIVE) SERUM NEGATIVE Hematology WBC (4.5 - 11.0 x10 3/uL) 7.38 RBC (3.54 - 5.02 x10 6/uL) 4.46 Hgb (11.0 - 15.0 g/dL) 13.1 Hct (33.0 - 45.0 %) 39.6 MCV (81.0 - 99.0 fL) 88.8 MCH (27.0 - 33.0 pg) 29.4 MCHC (33.0 - 37.0 g/dL) 33.1 RDW (11.5 - 14.5 %) 13.6 Plt Count (150 - 400 x10 3/uL) 351 MPV (7.0 - 9.0 fL) 9.3 H Neut % (Auto) (56.0 - 77.0 %) 58.2 Lymph % (Auto) (14.0 - 32.0 %) 33.1 H [place] % (Auto) (4.8 - 9.0 %) 6.9 Eos % (Auto) (0.3 - 3.7 %) 0.7 Baso % (Auto) (0.0 - 2.0 %) 0.8 Neut # (Auto) (2.0 - 7.6 x10 3/uL) 4.30 Lymph # (Auto) (1.0 - 3.8 x10 3/uL) 2.44 [place] # (Auto) (0.1 - 0.8 x10 3/uL) 0.51 Eos # (Auto) (0.0 - 0.2 x10 3/uL) 0.05 Baso # (Auto) (0.0 - 0.2 x10 3/uL) 0.06 Abs Immat Gran (auto) (0.00 - 0.03 x10 3/uL) 0. 02 Add Manual Diff NO Immature Gran % (0.0 - 2.0 %) 0.3 Nucleated RBC % (0 - 0 %) 0.0 Nucleated RBCs # (Man) (0.0 - 0.1 x10 3/uL) 0.0 0 Recent Impressions: ULTRASOUND - US TRANSVAGINAL NON OB 01/26 1532 Report Impression - Status: SIGNED Entered: 01/25/2019 1548 IMPRESSION: 1. 3 mm endometrium without focal abnormality. 2. The sonographic appearance of the ovaries is consistent with the clinical history of PCOS. 3. It is not known to me whether or not this pat ient is . There is no sonographic evidence of intrauterine or extrauterine gestation. Impression By: Kailyn Ramírez M.D. ULTRASOUND - US PELVIS COMPLETE 01/25 153 Report Impression - Status: SIGNED Entered: 01/25/20198 IMPRESSION: 1. 3 mm endometrium without focal abnormality. 2. The sonographic appearance of the ovaries is consistent with the clinical history of PCOS. 3. It is not known to me whether or not this pat ient is . There is no sonographic evidence of intrauterine or extrauterine gestation. Impression By: Kailyn Ramírez M.D. Lab Imaging Statement Laboratory radiographic studies reviewed and con sidered in the medical decision-making. ECG #1 Interpretation ECG Documented in MUSE Yes Date 01/25/19 Time 1437 Interpreted by ED physician (Mehdi) NL ECG Interpretation Normal rate (88), Normal s inus rhythm, No STEMI Rate 88 Re-Evaluation MDM Re-Evaluation/Progress Re-Evaluation/Progress Time of Re-Eval 1634 Re-Eval Status Improved, Currently comfortable. Discussed labs and imaging. Recommended f/u with Linux Engineer for management ED Course Medication(s) Ordered Medication(s) Ordered: Central Nervous System Agents Sig/Arina Start time Last Medication Dose Route Stop Time Status Admin Morphine Sulfate 4 MG X1ED STA 01/25 1437 DC IV 01/25 1438 1543 Gastrointestinal Drugs Sig/Arina Start time Last Medication Dose Route Stop Time Status Admin Ondansetron HCl 4 MG X1ED STA 01/25 1437 DC IV 01/25 1438 1543 Patient Discharge Departure Vital Signs/Condition Vital Signs First Documented: Result Date Time Pulse Ox 99 01/25 1414 B/P 115/76 / 1414 B/P Mean 89 01/25 1414 O2 Delivery Room air 01/25 1414 Temp 36.8 01/25 1414 Pulse 70 01/25 1414 Resp 16 01/25 1414 Last Documented: Result Date Time Pulse Ox 99 01/25 1414 B/P 115/76 / 1414 B/P Mean 89 01/25 1414 O2 Delivery Room air 01/25 1414 Temp 36.8 01/25 1414 Pulse 70 01/25 1414 Resp 16 01/25 1414 All vital signs available at the time of this en try have been reviewed. Clinical Impression Clinical Impression Primary Impression: PCOS (polycystic ovarian syn drome) Secondary Impressions: Abnormal vaginal bleeding Disposition Decision Discharge )( Discharged to Home Yes )( Time 1635 )( Date 01/25/19 Discharge/Care Plan Counseled Regarding Diagnosi s, Lab results, Imaging studies, Need for follow-up, When to return to ED Prescriptions None Andrew Wyatt 01/25/191816: HPI- Female General Initial Greet Date/Time 01/25/19 1413 Physical Exam Vital Signs Vital Signs Interpretation Diagnostics Lab Results Interpretation Results Re-Evaluation MDM ED Course Medication(s) Ordered Patient Discharge Departure Vital Signs/Condition Vital Signs Supervising Physician Note MidLv Saw Pt Alone I have reviewed the PA/ENVIRONMENTAL CONSERVATION PROFESSOR's note and plan of josé miguel ramirez I was available for consultation as needed at al l times during the patient's visit in the emergency department. I agree with the clinical impression , plan and disposition. at 1332 Electronically Signed by Andrew Wyatt MD on at 9602 RPT #:[id number] END OF REPORT
--- NOTE | 2023-01-29 04:43 | EDPHYS ---
Physician Documentation [facility] Name: Lona Marie Age: 32 yrs Sex: Female : 1990 Arrival Date: 01/29/2023 Time: 04:02 Bed 14 Private MD: ED Physician Oleg Schultz HPI: 01/29 04:25 This 32 yrs old Female presents to ER via Ambulatory with complaints of sp4 Blurred Vision, Bloody Stools, Vomiting Blood, Weakness. 04:25 . sp4 04:37 Shirin is a 32-year-old female who presents with complaint of 3 weeks of bloody emesis sp4 associated with some bloody stools. Patient states that she has been feeling unwell for the past 3 months she went to [facility] and had several GI work-ups, she was referred to dry goods inspector and general surgeon who cannot see her in the next 3 months. Patient today states that she would like to be referred to dry goods inspector and general surgeon here at [facility]. Patient was offered full GI work-up including CT angiography abdomen pelvis however she declined work-up at this time declined blood work and she desires referrals only. . 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 - Hysterectomy lg3 Historical: - Allergies: 04:24 Adhesives; lg3 04:24 Amoxicillin; lg3 04:24 Demerol; lg3 04:24 Doxycycline; lg3 04:24 Lamictal; lg3 04:24 Latex, Natural Rubber; lg3 04:24 Nucynta; lg3 04:24 PENICILLINS; lg3 04:24 Reglan; lg3 04:24 Toradol; lg3 04:24 tramadol; lg3 04:24 Trazodone; lg3 - Home Meds: 04:24 Flexeril 10 mg Oral tab 1 tab 3 times per day [Active]; meloxicam 15 mg Oral tab 1 tab lg3 once daily [Active]; [place] 10-325 mg Oral tab every 4-6 hours [Active]; pregabalin 150 mg Oral cap 1 cap 2 times per day [Active]; Promethazine Oral [Active]; Zofran Oral [Active]; Sucralfate Oral [Active]; - PMHx: 04:24 Breast Mass; cervical spine nerve damage; 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 - Social history:: Smoking status: Patient reports the use of cigarette tobacco products, denies chronic smoking, but will smoke occasionally, Patient/guardian denies using alcohol. - Family history:: not pertinent. ROS: 04:37 Constitutional: Negative for fever, chills, and weight loss, Eyes: Negative for injury, sp4 pain, redness, and discharge, ENT: Negative for injury, pain, and discharge, Neck: Negative for injury, pain, and swelling, Cardiovascular: Negative for chest pain, palpitations, and edema, Respiratory: Negative for shortness of breath, cough, wheezing, and pleuritic chest pain, Abdomen/GI: Patient is positive for bloody emesis, bloody stools, nausea, negative for constipation or abdominal pain. Back: Negative for injury and pain, : Negative for injury, bleeding, discharge, and swelling, MS/Extremity: Negative for injury and deformity, Skin: Negative for injury, rash, and discoloration, Neuro: Negative for headache, weakness, numbness, tingling, and seizure, Psych: Negative for depression, anxiety, Allergy/Immunology: Negative for hives, rash, and allergies Endocrine: Negative for neck swelling, polydipsia, polyuria, polyphagia, and weight changes Hematologic/Lymphatic: Negative for swollen nodes, abnormal bleeding, and unusual bruising Exam: 04:37 Constitutional: This is a well developed, well nourished patient who is awake, alert, sp4 anxious appearing female Head/Face: Normocephalic, atraumatic. Eyes: Pupils equal round and reactive to light, extra-ocular motions intact. Lids and lashes normal. Conjunctiva and sclera are not injected. Cornea within normal limits. Periorbital areas with no swelling, redness, or edema. ENT: Nares patent. No nasal discharge, no septal abnormalities noted. Tympanic membranes are normal and external auditory canals are clear. Oropharynx with no redness, swelling, or masses, exudates, or evidence of obstruction, uvula midline. Mucous membranes moist. Neck: Trachea midline, no thyromegaly or masses palpated, and no cervical lymphadenopathy. Supple, full range of motion without nuchal rigidity, or vertebral point tenderness. No Meningismus. Chest/axilla: Normal chest wall appearance and motion. Nontender with no deformity. No lesions are appreciated. Cardiovascular: Regular rate and rhythm with a normal S1 and S2. No gallops, murmurs, or rubs. Normal PMI, no JVD. No pulse deficits. Respiratory: Lungs have equal breath sounds bilaterally, clear to auscultation and percussion. No rales, rhonchi or wheezes noted. No increased work of breathing, no retractions or nasal flaring. Abdomen/GI: Soft, non-tender, with normal bowel sounds. No distension or tympany. No guarding or rebound. No evidence of tenderness throughout. Back: No spinal tenderness. No costovertebral tenderness. Skin: Warm, dry with normal turgor. Normal color with no rashes, no lesions, and no evidence of cellulitis. MS/ Extremity: Pulses equal, no cyanosis. Neurovascular intact. Full, normal range of motion. Neuro: Awake and alert, GCS 15, oriented to person, place, time, and situation. Cranial nerves II-XII grossly intact. Motor strength 5/5 in all extremities. Sensory grossly intact. Psych: Awake, alert, with orientation to person, place and time. Behavior, mood, and affect are within normal limits Vital Signs: 04:22 BP 126 / 87; Pulse 76; Resp 17 S; Temp 98.4(O); Pulse Ox 100% on R/A; Weight 68.04 kg lg3 (R); Height 5 ft. 3 in. (R); 04:22 Body Mass Index 26.57 (68.04 kg, 160.02 cm) lg3 MDM: 04:26 Patient medically screened. sp4 04:37 Data reviewed: vital signs, EMS record, old medical records. Consideration of sp4 Admission/Observation Escalation of care including admission/observation considered. ED course: Patient declined abdominal work-up, declined blood work, declined rectal exam as well. Patient at this time desires to be referred to the dry goods inspector and general surgeon for follow-up patient will be referred to Jan Cordova and Dr Linder . 01/29 04:26 Order name: IV Saline Lock sp4 01/29 04:26 Order name: Labs collected and sent sp4 Administered Medications: 04:52 Not Given (Patient Refused): NS 0.9% IV 1000 ml IV at 1 bolus Per protocol; 1000 mL lg3 bolus 04:52 Not Given (Patient Refused): Famotidine IVP 20 mg IVP once; dilute with 10 mL 0.9% lg3 NaCl; give over 2 minutes 04:52 Not Given (Patient Refused): Ondansetron IVP 4 mg IVP once; over 2 minutes lg3 Disposition Summary: 01/29/23 04:42 Discharge Ordered Location: Home sp4 Problem: new sp4 Symptoms: are unchanged sp4 Condition: Stable sp4 Diagnosis - Nausea with vomiting, unspecified sp4 - Bloody emesis. sp4 Followup: sp4 - With: Jonathan Loaiza MD - When: 5 - 6 days - Reason: Recheck today's complaints Followup: sp4 - With: Jayme King MD - When: 5 - 6 days - Reason: Recheck today's complaints Discharge Instructions: - Discharge Summary Sheet sp4 - Nausea and Vomiting, Adult sp4 Signatures: Dispatcher [employer] Susan Avalos, RN RN lg3 Oleg Schultz MD MD sp4
--- NOTE | 2023-01-29 04:43 | ER ---
Nurse's Notes [facility] Name: Lona Marie Age: 32 yrs Sex: Female : 1990 Arrival Date: 01/29/2023 Time: 04:02 Bed 14 Private MD: Diagnosis: Nausea with vomiting, unspecified;Bloody emesis. Presentation: 01/29 04:22 Chief complaint: Patient states: nausea/vomiting, epigastric pain X2 months. bloody lg3 vomit and stool X3 weeks. Coronavirus screen: Client denies travel out of the [place] in the last 14 days. At this time, the client does not indicate any symptoms associated with coronavirus-19. Ebola Screen: No symptoms or risks identified at this time. Initial Sepsis Screen: Does the patient meet any 2 criteria? No. Patient's initial sepsis screen is negative. Does the patient have a suspected source of infection? No. Patient's initial sepsis screen is negative. Risk Assessment: Do you want to hurt yourself or someone else? Patient reports no desire to harm self or others. Onset of symptoms is unknown. 04:22 Method Of Arrival: Ambulatory lg3 04:22 Acuity: SMITH 3 lg3 Triage Assessment: 04:24 General: Appears in no apparent distress. uncomfortable, Behavior is calm, cooperative. lg3 Pain: Complains of pain in abdomen. EENT: No deficits noted. No signs and/or symptoms were reported regarding the EENT system. Neuro: No deficits noted. Cool Agitation-Sedation Scale (RASS): 0 - Alert and Calm Level of Consciousness is awake, alert, obeys commands, Oriented to person, place, time, situation. Cardiovascular: No deficits noted. Denies chest pain, shortness of breath, Capillary refill < 3 seconds Clubbing of nail beds is absent JVD is absent Patient's skin is warm and dry. Respiratory: No deficits noted. Airway is patent Trachea midline Respiratory effort is even, unlabored, Respiratory pattern is regular, symmetrical. GI: Abdomen is round non-distended, Reports upper abdominal pain, cramping, rectal bleeding, bloody stool, indigestion, nausea, vomiting. : No deficits noted. No signs and/or symptoms were reported regarding the genitourinary system. Derm: No deficits noted. No signs and/or symptoms reported regarding the dermatologic system. Skin is intact, is healthy with good turgor, Skin is dry, Skin is normal, Skin temperature is warm. Musculoskeletal: No deficits noted. No signs and/or symptoms reported regarding the musculoskeletal system. Circulation, motion, and sensation intact. Range of motion: intact in all extremities. 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 lg3 Historical: - Allergies: 04:24 Adhesives; lg3 04:24 Amoxicillin; lg3 04:24 Demerol; lg3 04:24 Doxycycline; lg3 04:24 Lamictal; lg3 04:24 Latex, Natural Rubber; lg3 04:24 Nucynta; lg3 04:24 PENICILLINS; lg3 04:24 Reglan; lg3 04:24 Toradol; lg3 04:24 tramadol; lg3 04:24 Trazodone; lg3 - Home Meds: 04:24 Flexeril 10 mg Oral tab 1 tab 3 times per day [Active]; meloxicam 15 mg Oral tab 1 tab lg3 once daily [Active]; [place] 10-325 mg Oral tab every 4-6 hours [Active]; pregabalin 150 mg Oral cap 1 cap 2 times per day [Active]; Promethazine Oral [Active]; Zofran Oral [Active]; Sucralfate Oral [Active]; - PMHx: 04:24 Breast Mass; cervical spine nerve damage; 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 - Social history:: Smoking status: Patient reports the use of cigarette tobacco products, denies chronic smoking, but will smoke occasionally, Patient/guardian denies using alcohol. - Family history:: not pertinent. Screenin:27 [facility] ED Fall Risk Assessment (Adult) History of falling in the last 3 months, lg3 including since admission No falls in past 3 months (0 pts). Abuse screen: Denies threats or abuse. Denies injuries from another. Nutritional screening: No deficits noted. Tuberculosis screening: No symptoms or risk factors identified. Assessment: 04:27 General: see triage assessment . lg3 04:30 General: pt refusing all nursing interventions at this time. provider notified. . lg3 Vital Signs: 04:22 BP 126 / 87; Pulse 76; Resp 17 S; Temp 98.4(O); Pulse Ox 100% on R/A; Weight 68.04 kg lg3 (R); Height 5 ft. 3 in. (R); 04:22 Body Mass Index 26.57 (68.04 kg, 160.02 cm) lg3 ED Course: 04:06 Patient arrived in ED. ja2 04:22 Susan Nava RN is Primary Nurse. lg3 04:24 Triage completed. lg3 04:24 Arm band placed on right wrist. lg3 04:25 Oleg Schultz MD is Attending Physician. sp4 04:27 Patient has correct armband on for positive identification. Placed in gown. Bed in low lg3 position. Call light in reach. Side rails up X 1. Client placed on continuous cardiac and pulse oximetry monitoring. NIBP monitoring applied. Door closed. Noise minimized. Warm blanket given. 04:41 Jonathan Loaiza MD is Referral Physician. sp4 04:42 Jayme King MD is Referral Physician. sp4 04:51 No provider procedures requiring assistance completed. Patient did not have IV access lg3 during this emergency room visit. Administered Medications: 04:52 Not Given (Patient Refused): NS 0.9% IV 1000 ml IV at 1 bolus Per protocol; 1000 mL lg3 bolus 04:52 Not Given (Patient Refused): Famotidine IVP 20 mg IVP once; dilute with 10 mL 0.9% lg3 NaCl; give over 2 minutes 04:52 Not Given (Patient Refused): Ondansetron IVP 4 mg IVP once; over 2 minutes lg3 Medication: 04:51 VIS not applicable for this client. lg3 Outcome: 04:42 Discharge ordered by MD. sp4 04:51 Discharged to home ambulatory. lg3 04:51 Condition: stable 04:51 Discharge instructions given to patient, Instructed on discharge instructions, follow up and referral plans. Demonstrated understanding of instructions, follow-up care. 04:52 Patient left the ED. lg3 Signatures: Susan Nava RN RN 3 Salud Robins ja2 Oleg Schultz MD MD sp4 Corrections: (The following items were deleted from the chart) 04:50 04:30 General: see triage assessment . lg3 lg3 04:51 04:30 General: see triage assessment . lg3 lg3 04:51 04:50 General: lg3 lg3
[2023-01-29 05:09] VITALS: BP 126/87; TEMP 98.4; O2SAT 100
== END 2023-01-29 04:52 | disposition home or self-care (01) ==
LOC: ER 04:02
DX: K92.0 Hematemesis (principal)
CPT/HCPCS: 99282

== ENCOUNTER 2023-02-07 03:20 | Emergency (ER) | payer OTHER ==
--- OUTSIDE RECORDS SUMMARY | 2023-02-07 03:42 | XMS REPORT | Continuity of Care Document ---
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 valACYclovi Yes [id number] 1g Take 1 Univers r 1 gram 4-21 tablet by ity of tablet 00:00: mouth in [place] [address] the [facility] and 1 tablet at noon and 1 tablet in the evening. valACYclovi Yes [id number] 1g Take 1 Univers r 1 gram 4-21 tablet by ity of tablet 00:00: mouth in [place] [address] the [facility] and 1 tablet at noon and 1 tablet in the evening. valACYclovi 0 Yes [id number] 1g Take 1 Univers r 1 gram 4-21 tablet by ity of tablet 00:00: mouth in [place] [address] the [facility] and 1 tablet at noon and 1 tablet in the evening. valACYclovi 0 Yes [id number] 1g Take 1 Univers r 1 gram 4-21 tablet by ity of tablet 00:00: mouth in [place] [address] the [facility] and 1 tablet at noon and 1 tablet in the evening. valACYclovi 0 Yes [id number] 1g Take 1 Univers r 1 gram 4-21 tablet by ity of tablet 00:00: mouth in [place] [address] the [facility] morning [place] and 1 tablet at noon and 1 tablet in the evening. valACYclovi 0 Yes [id number] 1g Take 1 Univers r 1 gram 4-21 tablet by ity of tablet 00:00: mouth in [address] and 1 tablet at noon and 1 tablet in the evening. valACYclovi 0 Yes [id number] 1g Take 1 Univers r 1 gram 4-21 tablet by ity of tablet 00:00: mouth in [place] 00 the Medical morning Branch and 1 tablet at noon and 1 tablet in the evening. valACYclovi Yes [id number] 1g Take 1 Univers r 1 gram 4-21 tablet by ity of tablet 00:00: mouth in [place] 00 the Medical morning Branch and 1 tablet at noon and 1 tablet in the evening. valACYclovi Yes [id number] 1g Take 1 Univers r 1 gram 4-21 tablet by ity of tablet 00:00: mouth in [place] 00 the Medical morning Branch and 1 tablet at noon and 1 tablet in the evening. valACYclovi Yes [id number] 1g Take 1 Univers r 1 gram 4-21 tablet by ity of tablet 00:00: mouth in [place] 00 the Medical morning Branch and 1 tablet at noon and 1 tablet in the evening. valACYclovi Yes [id number] 1g Take 1 Univers r 1 gram 4-21 tablet by ity of tablet 00:00: mouth in [place] 00 the Medical morning Branch and 1 tablet at noon and 1 tablet in the evening. valACYclovi Yes [id number] 1g Take 1 Univers r 1 gram 4-21 tablet by ity of tablet 00:00: mouth in [place] 00 the Medical morning Branch and 1 tablet at noon and 1 tablet in the evening. valACYclovi Yes [id number] 1g Take 1 Univers r 1 gram 4-21 tablet by ity of tablet 00:00: mouth in [place] 00 the Medical morning Branch and 1 tablet at noon and 1 tablet in the evening. valACYclovi 2022- No [id number] 1g Take 1 Univers r 1 gram 4-21 05-12 tablet by ity o f tablet 00:00: 00:00 mouth in [place] 00 :00 the Medical morning Branch and 1 tablet at noon and 1 tablet in the evening. valACYclovi 0 2022- Yes [id number] 1g Take 1 Univers r 1 gram 4-21 04-29 tablet by ity o f tablet 00:00: 04:59 mouth in [place] 00 :00 the Medical morning Branch and 1 tablet at noon and 1 tablet in the evening. Do all this for 7 days. valACYclovi 0 2022- No [id number] 1g Take 1 Univers r 1 gram 4-21 04-21 tablet by ity o f tablet 00:00: 00:00 mouth in [place] 00 :00 the Medical morning Branch and 1 tablet at noon and 1 tablet in the evening. Do all this for 7 days. levETIRAcet 0 Yes TWICE Unive rs am 500 mg 4-18 DAILY. ity of tablet 09:12: [address] gabapentin 2022-0 Yes gabapentin U nivers 300 mg 4-18 300 mg ity of capsule 09:12: capsule [address] famotidine 2022-0 Yes famotidine U nivers 20 mg 4-18 20 mg ity of tablet 09:12: tablet [address] clonazePAM 2022-0 Yes clonazepam U nivers 0.5 mg 4-18 0.5 mg ity of tablet 09:12: tablet [place] [address] TAKE 1 Medical TABLET BY Branch MOUTH EVERY DAY AT BEDTIME NEEDED FOR SEVERE ANXIETY/PA STACEY ATTACK buPROPion 0 Yes 300mg Take 1 Unive rs XL 300 mg 4-18 tablet by ity o f 24 hr 09:12: mouth. [address] buprenorphi Yes [place] Uni vers ne [...] mg 4-18 DAILY. ity of tablet 09:12: [address] gabapentin 0 Yes gabapentin U nivers 300 mg 4-18 300 mg ity of capsule 09:12: capsule [address] famotidine 2022-0 Yes famotidine U nivers 20 mg 4-18 20 mg ity of tablet 09:12: tablet [address] clonazePAM 2023-0 Yes clonazepam U nivers 0.5 mg 4-18 0.5 mg ity of tablet 09:12: tablet [place] 14 TAKE 1 Medical TABLET BY Branch MOUTH EVERY DAY AT BEDTIME NEEDED FOR SEVERE ANXIETY/PA STACEY ATTACK buPROPion 0 Yes 300mg Take 1 Unive rs XL 300 mg 4-18 tablet by ity o f 24 hr 09:12: mouth. [place] tablet 14 [facility] buprenorphi 0 Yes [place] [facility] vers ne [...] [place] inhaler 14 mcg/actuat Med ica ion Branch aerosol inhaler levETIRAcet Yes TWICE Unive rs am 500 mg 4-18 DAILY. ity of tablet 09:12: [address] gabapentin Yes gabapentin U nivers 300 mg 4-18 300 mg ity of capsule 09:12: capsule [address] famotidine 2022-0 Yes famotidine U nivers 20 mg 4-18 20 mg ity of tablet 09:12: tablet [address] clonazePAM 2022-0 Yes clonazepam U nivers 0.5 mg 4-18 0.5 mg ity of tablet 09:12: tablet [place] 14 TAKE 1 Medical TABLET BY Branch MOUTH EVERY DAY AT BEDTIME NEEDED FOR SEVERE ANXIETY/PA STACEY ATTACK buPROPion 2022-0 Yes 300mg Take 1 Unive rs XL 300 mg 4-18 tablet by ity o f 24 hr 09:12: mouth. [place] tablet 14 [facility] buprenorphi 0 Yes [place] Uni vers ne [...] mg 4-18 DAILY. ity of tablet 09:12: [address] gabapentin Yes gabapentin U nivers 300 mg 4-18 300 mg ity of capsule 09:12: capsule [address] famotidine Yes famotidine U nivers 20 mg 4-18 20 mg ity of tablet 09:12: tablet [address] clonazePAM Yes clonazepam U nivers 0.5 mg 4-18 0.5 mg ity of tablet 09:12: tablet [place] [address] TAKE 1 Medical TABLET BY Branch MOUTH EVERY DAY AT BEDTIME NEEDED FOR SEVERE ANXIETY/PA STACEY ATTACK buPROPion Yes 300mg Take 1 Unive rs XL 300 mg 4-18 tablet by ity o f 24 hr 09:12: mouth. [address] bupren[place] Yes [place] Uni vers ne [...] mg 4-18 DAILY. ity of tablet 09:12: [address] gabapentin 2022-0 Yes gabapentin U nivers 300 mg 4-18 300 mg ity of capsule 09:12: capsule [address] famotidine 2022-0 Yes famotidine U nivers 20 mg 4-18 20 mg ity of tablet 09:12: tablet [address] clonazePAM 2022-0 Yes clonazepam U nivers 0.5 mg 4-18 0.5 mg ity of tablet 09:12: tablet [place] [address] TAKE 1 Medical TABLET BY Branch MOUTH EVERY DAY AT BEDTIME NEEDED FOR SEVERE ANXIETY/PA STACEY ATTACK buPROPion 0 Yes 300mg Take 1 Unive rs XL 300 mg 4-18 tablet by ity o f 24 hr 09:12: mouth. [address] [place] Yes [place] [facility] vers ne [...] [place] inhal[place] 14 mcg/actuat Med ica ion Branch aerosol inhaler levETIRAcet 0 Yes TWICE Unive rs am 500 mg 4-18 DAILY. ity of tablet 09:12: [address] gabapentin Yes gabapentin U nivers 300 mg 4-18 300 mg ity of capsule 09:12: capsule [address] famotidine 2022-0 Yes famotidine U nivers 20 mg 4-18 20 mg ity of tablet 09:12: tablet [address] clonazePAM 2022-0 Yes clonazepam U nivers 0.5 mg 4-18 0.5 mg ity of tablet 09:12: tablet [place] [address] TAKE 1 Medical TABLET BY Branch MOUTH EVERY DAY AT BEDTIME NEEDED FOR SEVERE ANXIETY/PA STACEY ATTACK buPROPion 2023-0 Yes 300mg Take 1 Unive rs XL 300 mg 4-18 tablet by ity o f 24 hr 09:12: mouth. [place] tablet 14 [facility] buprenorphi Yes [place] Uni vers ne HCL [...] mg 4-18 DAILY. ity of tablet 09:12: [address] gabapentin Yes gabapentin U nivers 300 mg 4-18 300 mg ity of capsule 09:12: capsule [address] famotidine Yes famotidine U nivers 20 mg 4-18 20 mg ity of tablet 09:12: tablet [address] clonazePAM Yes clonazepam U nivers 0.5 mg 4-18 0.5 mg ity of tablet 09:12: tablet [place] [address] TAKE 1 Medical TABLET BY Branch MOUTH EVERY DAY AT BEDTIME NEEDED FOR SEVERE ANXIETY/PA STACEY ATTACK buPROPion Yes 300mg Take 1 Unive rs XL 300 mg 4-18 tablet by ity o f 24 hr 09:12: mouth. [place] tablet 14 [facility] buprenorphi Yes [place] Uni vers ne HCL [...] mg 4-18 DAILY. ity of tablet 09:12: [address] gabapentin Yes gabapentin U nivers 300 mg 4-18 300 mg ity of capsule 09:12: capsule [address] famotidine Yes famotidine U nivers 20 mg 4-18 20 mg ity of tablet 09:12: tablet [address] clonazePAM Yes clonazepam U nivers 0.5 mg 4-18 0.5 mg ity of tablet 09:12: tablet [place] [address] TAKE 1 Medical TABLET BY Branch MOUTH EVERY DAY AT BEDTIME NEEDED FOR SEVERE ANXIETY/PA STACEY ATTACK buPROPion Yes 300mg Take 1 Unive rs XL 300 mg 4-18 tablet by ity o f 24 hr 09:12: mouth. [address] bupren[place] Yes [place] Uni vers ne [...] mg 4-18 DAILY. ity of tablet 09:12: [address] gabapentin Yes gabapentin U nivers 300 mg 4-18 300 mg ity of capsule 09:12: capsule [address] famotidine Yes famotidine U nivers 20 mg 4-18 20 mg ity of tablet 09:12: tablet [address] clonazePAM 2022-0 Yes clonazepam U nivers 0.5 mg 4-18 0.5 mg ity of tablet 09:12: tablet [place] 14 TAKE 1 Medical TABLET BY Branch MOUTH EVERY DAY AT BEDTIME NEEDED FOR SEVERE ANXIETY/PA STACEY ATTACK buPROPion 0 Yes 300mg Take 1 Unive rs XL 300 mg 4-18 tablet by ity o f 24 hr 09:12: mouth. [place] tablet 14 [facility] buprenorphi Yes [place] [facility] vers ne HCL [...] [place] [facility] Branch aerosol inhaler levETIRAcet Yes TWICE Unive rs am 500 mg 4-18 DAILY. ity of tablet 09:12: [address] gabapentin Yes gabapentin U nivers 300 mg 4-18 300 mg ity of capsule 09:12: capsule [address] famotidine 2022-0 Yes famotidine U nivers 20 mg 4-18 20 mg ity of tablet 09:12: tablet [address] clonazePAM 2022-0 Yes clonazepam U nivers 0.5 mg 4-18 0.5 mg ity of tablet 09:12: tablet [place] [address] TAKE 1 Medical TABLET BY Branch MOUTH EVERY DAY AT BEDTIME NEEDED FOR SEVERE ANXIETY/PA STACEY ATTACK buPROPion 2022-0 Yes 300mg Take 1 Unive rs XL 300 mg 4-18 tablet by ity o f 24 hr 09:12: mouth. [place] tablet 14 [facility] buprenorphi Yes [place] Uni vers ne HCL [...] mg 4-18 DAILY. ity of tablet 09:12: [address] gabapentin Yes gabapentin U nivers 300 mg 4-18 300 mg ity of capsule 09:12: capsule [address] famotidine 0 Yes famotidine U nivers 20 mg 4-18 20 mg ity of tablet 09:12: tablet [address] clonazePAM 0 Yes clonazepam U nivers 0.5 mg 4-18 0.5 mg ity of tablet 09:12: tablet [place] [address] TAKE 1 Medical TABLET BY Branch MOUTH EVERY DAY AT BEDTIME NEEDED FOR SEVERE ANXIETY/PA STACEY ATTACK buPROPion 0 Yes 300mg Take 1 Unive rs XL 300 mg 4-18 tablet by ity o f 24 hr 09:12: mouth. [place] tablet [address] [place] [address] buprenorphi Yes [place] Uni vers ne HCL [...] mg 4-18 DAILY. ity of tablet 09:12: [address] gabapentin 0 Yes gabapentin U nivers 300 mg 4-18 300 mg ity of capsule 09:12: capsule [address] famotidine 2022-0 Yes famotidine U nivers 20 mg 4-18 20 mg ity of tablet 09:12: tablet [address] clonazePAM 2022-0 Yes clonazepam U nivers 0.5 mg 4-18 0.5 mg ity of tablet 09:12: tablet [place] 14 TAKE 1 Medical TABLET BY Branch MOUTH EVERY DAY AT BEDTIME NEEDED FOR SEVERE ANXIETY/PA STACEY ATTACK buPROPion 0 Yes 300mg Take 1 Unive rs XL 300 mg 4-18 tablet by ity o f 24 hr 09:12: mouth. [facility] 14 [facility] buprenorphi Yes [place] Uni vers ne HCL [...] mg 4-18 DAILY. ity of tablet 09:12: [address] gabapentin 2022-0 Yes gabapentin U nivers 300 mg 4-18 300 mg ity of capsule 09:12: capsule [address] famotidine 2022-0 Yes famotidine U nivers 20 mg 4-18 20 mg ity of tablet 09:12: tablet [address] clonazePAM 2022-0 Yes clonazepam U nivers 0.5 mg 4-18 0.5 mg ity of tablet 09:12: tablet [place] 14 TAKE 1 Medical TABLET BY Branch [...] mg 4-18 DAILY. ity of tablet 09:12: [address] gabapentin Yes gabapentin U nivers 300 mg 4-18 300 mg ity of capsule 09:12: capsule [address] famotidine Yes famotidine U nivers 20 mg 4-18 20 mg ity of tablet 09:12: tablet [address] clonazePAM Yes clonazepam U nivers 0.5 mg 4-18 0.5 mg ity of tablet 09:12: tablet [place] [address] TAKE 1 Medical TABLET BY Branch MOUTH [...] 12/19/22 at 0530, Routine iopamidol 2022- No [id number] 99mL 99 mL, U nivers (ISOVUE 12-19 [...] 800 mg ity of tablet 10:43: tablet [address] Branch adalimumab 2022-0 Yes 40mg inject 1 Uni vers (HUMIRA) 40 4-11 Syringe ity o f mg/0.8 mL 10:43: under the [place] injection 17 skin. Medical Branch ibuprofen Yes ibuprofen Uni vers 800 mg 4-11 800 mg ity of tablet 10:43: tablet [address] Branch adalimumab 2022-0 Yes 40mg inject 1 Uni vers (HUMIRA) 40 4-11 Syringe ity o f mg/0.8 mL 10:43: under the [place] injection 17 skin. Medical Branch ibuprofen Yes ibuprofen Uni vers 800 mg 4-11 800 mg ity of tablet 10:43: tablet [address] Branch adalimumab 2022-0 Yes 40mg inject 1 Uni vers (HUMIRA) 40 4-11 Syringe ity o f mg/0.8 mL 10:43: under the [place] injection 17 skin. Medical Branch ibuprofen Yes ibuprofen Uni vers 800 mg 4-11 800 mg ity of tablet 10:43: tablet [address] Branch adalimumab 2022-0 Yes 40mg inject [...] 800 mg ity of tablet 10:43: tablet [address] Branch adalimumab 2022-0 Yes 40mg inject 1 Uni vers (HUMIRA) 40 4-11 Syringe ity o f mg/0.8 mL 10:43: under the [place] injection 17 skin. Medical Branch ibuprofen 2022-0 Yes ibuprofen Uni vers 800 mg 4-11 800 mg ity of tablet 10:43: tablet [address] Branch adalimumab 2022-0 Yes 40mg inject 1 Uni vers (HUMIRA) 40 4-11 Syringe ity o f mg/0.8 mL 10:43: under the [place] injection 17 skin. Medical Branch ibuprofen 0 Yes ibuprofen Uni vers 800 mg 4-11 800 mg ity of tablet 10:43: tablet [address] Branch adalimumab 2022-0 Yes 40mg inject 1 Uni vers (HUMIRA) 40 4-11 Syringe ity o f mg/0.8 mL 10:43: under the [place] injection 17 skin. Medical Branch ibuprofen 2022- Yes ibuprofen Uni vers 800 mg 4-11 800 mg ity of tablet 10:43: tablet [address] Branch adalimumab 2022-0 Yes 40mg inject 1 Uni vers (HUMIRA) 40 4-11 Syringe ity o f mg/0.8 mL 10:43: under the [place] injection 17 skin. Medical Branch ibuprofen Yes ibuprofen Uni vers 800 mg 4-11 800 mg ity of tablet 10:43: tablet [address] adalimumab 2022-0 Yes 40mg inject 1 Uni vers (HUMIRA) 40 4-11 Syringe ity o f mg/0.8 mL 10:43: under the [place] injection 17 skin. Medical Branch ibuprofen 0 Yes ibuprofen Uni vers 800 mg 4-11 800 mg ity of tablet 10:43: tablet [address] Branch pregabalin 0 Yes 150mg Take 1 Univ ers 150 mg 3-30 capsule by ity of capsule 00:00: mouth in [place] 00 the Medical [...] ity of capsule 00:00: mouth in [place] the Medical morning Branch and 1 capsule in the evening. meloxicam 2023-0 Yes Univers 15 mg 3-30 ity of tablet 00:00: [place] [facility] Branch HYDROcodone 2023-0 Yes 1{tbl} Take 1 Un travis -acetaminop 3-30 tablet by ity of hen 5-325 00:00: mouth 4 [place] mg tablet ([facility]) [facility] times [place] daily. pregabalin 2023-0 Yes 150mg Take 1 Univ ers 150 mg 3-30 capsule by ity of capsule 00:00: mouth in [place] the [facility] morning Branch and 1 capsule in the evening. meloxicam 2023-0 Yes Univers 15 mg 3-30 ity of tablet 00:00: [place] [facility] Branch HYDROcodone 2023-0 Yes 1{tbl} Take 1 Un travis -acetaminop 3-30 tablet by ity of hen 5-325 00:00: mouth 4 [place] mg tablet ([facility]) [facility] times [place] daily. pregabalin 2023-0 Yes 150mg Take 1 Univ ers 150 mg 3-30 capsule by ity of capsule 00:00: mouth in [place] the [facility] morning Branch and 1 capsule in the evening. meloxicam 2023-0 Yes Univers 15 mg 3-30 ity of tablet 00:00: [place] [facility] Branch HYDROcodone 2023-0 Yes 1{tbl} Take 1 Un travis -acetaminop 3-30 tablet by ity of hen 5-325 00:00: mouth 4 [place] mg tablet ([facility]) [facility] times [place] daily. pregabalin 2023-0 Yes 150mg Take 1 Univ ers 150 mg 3-30 capsule by ity of capsule 00:00: mouth in [place] the [facility] morning Branch and 1 capsule in the evening. meloxicam 2023-0 Yes Univers 15 mg 3-30 ity of tablet 00:00: [place] [facility] Branch HYDROcodone 2023-0 Yes 1{tbl} Take 1 Un travis -acetaminop 3-30 tablet by ity of hen 5-325 00:00: mouth 4 [place] mg tablet 00 ([facility]) Medical times [place] daily. pregabalin 2023-0 Yes 150mg Take 1 Univ ers 150 mg 3-30 capsule by ity of capsule 00:00: mouth in [place] the Medical morning Branch and 1 capsule in the evening. meloxicam 2023-0 Yes Univers 15 mg 3-30 ity of tablet 00:00: [place] [facility] Branch HYDROcodone 2023-0 Yes 1{tbl} Take 1 Un travis -acetaminop 3-30 tablet by ity of hen 5-325 00:00: mouth 4 [place] mg tablet 00 ([facility]) Medical times [place] daily. pregabalin 2023-0 Yes 150mg Take 1 Univ ers 150 mg 3-30 capsule by ity of capsule 00:00: mouth in [place] the Medical morning Branch and 1 capsule in the evening. meloxicam 2023-0 Yes Univers 15 mg 3-30 ity of tablet 00:00: [place] [facility] Branch HYDROcodone 2023-0 Yes 1{tbl} Take 1 Un travis -acetaminop 3-30 tablet by ity of hen 5-325 00:00: mouth 4 [place] mg tablet ([facility]) Medical times [place] daily. pregabalin 2023-0 Yes 150mg Take 1 Univ ers 150 mg 3-30 capsule by ity of capsule 00:00: mouth in [place] [address] the Medical morning Branch and 1 capsule in the evening. meloxicam 2023-0 Yes Univers 15 mg 3-30 ity of tablet 00:00: [place] [facility] Branch HYDROcodone 2023-0 Yes 1{tbl} Take 1 Un travis -acetaminop 3-30 tablet by ity of hen 5-325 00:00: mouth 4 [place] mg tablet ([facility]) Medical times [place] daily. pregabalin 2023-0 Yes 150mg Take 1 Univ ers 150 mg 3-30 capsule by ity of capsule 00:00: mouth in [place] [address] the Medical morning Branch and 1 capsule in the evening. meloxicam 2023-0 Yes Univers 15 mg 3-30 ity of tablet 00:00: [place] [facility] Branch HYDROcodone 2023-0 Yes 1{tbl} Take 1 Un travis -acetaminop 3-30 tablet by ity of hen 5-325 00:00: mouth 4 [place] mg tablet 00 (four) Medical times [place] daily. pregabalin 2023-0 Yes 150mg Take 1 Univ ers 150 mg 3-30 capsule by ity of capsule 00:00: mouth in [place] [address] the Medical morning Branch and 1 capsule in the evening. meloxicam 2023-0 Yes Univers 15 mg 3-30 ity of tablet 00:00: [place] [facility] Branch HYDROcodone 2023-0 Yes 1{tbl} Take 1 Un travis -acetaminop 3-30 tablet by ity of hen 5-325 00:00: mouth 4 [place] mg tablet 00 ([facility]) [facility] times [place] daily. pregabalin 2023-0 Yes 150mg Take 1 Univ ers 150 mg 3-30 capsule by ity of capsule 00:00: mouth in [place] the Medical morning Branch and 1 capsule in the evening. meloxicam 2023-0 Yes Univers 15 mg 3-30 ity of tablet 00:00: [place] [facility] Branch HYDROcodone 2023-0 Yes 1{tbl} Take 1 Un travis -acetaminop 3-30 tablet by ity of hen 5-325 00:00: mouth 4 [place] mg tablet 00 ([facility]) [facility] times [place] daily. pregabalin 2023-0 Yes 150mg Take 1 Univ ers 150 mg 3-30 capsule by ity of capsule 00:00: mouth in [place] the [facility] morning Branch and 1 capsule in the evening. meloxicam 2023-0 Yes Univers 15 mg 3-30 ity of tablet 00:00: [place] [facility] Branch HYDROcodone 2023-0 Yes 1{tbl} Take 1 Un travis -acetaminop 3-30 tablet by ity of hen 5-325 00:00: mouth 4 [place] mg tablet 00 ([facility]) [facility] daily. pregabalin 2023-0 Yes 150mg Take 1 Univ ers 150 mg 3-30 capsule by ity of capsule 00:00: mouth in [place] the Medical morning Branch and 1 capsule in the evening. meloxicam 2023-0 Yes Univers 15 mg 3-30 ity of tablet 00:00: [place] [facility] Branch HYDROcodone 2023-0 Yes 1{tbl} Take 1 Un travis -acetaminop 3-30 tablet by ity of hen 5-325 00:00: mouth 4 [place] mg tablet 00 (four) [facility] times [place] daily. pregabalin 2023-0 Yes 150mg Take 1 Univ ers 150 mg 3-30 capsule by ity of capsule 00:00: mouth in [place] [address] the [facility] morning Branch and 1 capsule in the evening. meloxicam 2023-0 Yes Univers 15 mg 3-30 ity of tablet 00:00: [place] 00 [facility] Branch HYDROcodone 2023-0 Yes 1{tbl} Take 1 Un travis -acetaminop 3-30 tablet by ity of hen 5-325 00:00: mouth 4 [place] mg tablet ([facility]) [facility] times [place] daily. pregabalin 2023-0 Yes 150mg Take 1 Univ ers 150 mg 3-30 capsule by ity of capsule 00:00: mouth in [place] the Medical morning Branch and 1 capsule in the evening. meloxicam 2023-0 Yes Univers 15 mg 3-30 ity of tablet 00:00: [place] [facility] Branch HYDROcodone 2023-0 Yes 1{tbl} Take 1 Un travis -acetaminop 3-30 tablet by ity of hen 5-325 00:00: mouth 4 [place] mg tablet ([facility]) [facility] times [place] daily. pregabalin 2023-0 Yes 150mg Take 1 Univ ers 150 mg 3-30 capsule by ity of capsule 00:00: mouth in [place] the [facility] morning Branch and 1 capsule in the evening. meloxicam 2023-0 Yes Univers 15 mg 3-30 ity of tablet 00:00: [place] [facility] Branch HYDROcodone 2023-0 Yes 1{tbl} Take 1 Un travis -acetaminop 3-30 tablet by ity of hen 5-325 00:00: mouth 4 [place] mg tablet ([facility]) [facility] daily. pregabalin 2023-0 Yes 150mg Take 1 Univ ers 150 mg 3-30 capsule by ity of capsule 00:00: mouth in [place] the [facility] morning Branch and 1 capsule in the evening. meloxicam 2023-0 Yes Univers 15 mg 3-30 ity of tablet 00:00: [place] [facility] Branch HYDROcodone 2023-0 Yes 1{tbl} Take 1 Un travis -acetaminop 3-30 tablet by ity of hen 5-325 00:00: mouth 4 [place] mg tablet 00 ([facility]) [facility] times [place] daily. pregabalin 2023-0 Yes 150mg Take 1 Univ ers 150 mg 3-30 capsule by ity of capsule 00:00: mouth in [place] the [facility] morning Branch and 1 capsule in the evening. meloxicam 2023-0 Yes Univers 15 mg 3-30 ity of tablet 00:00: [place] 00 [facility] [facility] HYDROcodone 2023-0 Yes 1{tbl} Take 1 [facility] -acetaminop 3-30 tablet by ity of hen 5-325 00:00: mouth 4 [place] mg tablet ([facility]) [facility] times [place] daily. pregabalin 2023-0 Yes 150mg Take 1 Univ ers 150 mg 3-30 capsule by ity of capsule 00:00: mouth in [place] the Medical morning Branch and 1 capsule in the evening. meloxicam 2023-0 Yes [facility] 15 mg 3-30 ity of tablet 00:00: [place] [facility] HYDROcodone 2023-0 Yes 1{tbl} Take 1 Un tra[facility] -acetaminop 3-30 tablet by ity of hen 5-325 00:00: mouth 4 [place] mg tablet ([facility]) [facility] times [place] daily. pregabalin 2023-0 Yes 150mg Take 1 Univ ers 150 mg 3-30 capsule by ity of capsule 00:00: mouth in [place] the [facility] morning Branch and 1 capsule in the evening. meloxicam 2023-0 Yes [facility] 15 mg 3-30 ity of tablet 00:00: [place] [facility] HYDROcodone 2023-0 Yes 1{tbl} Take 1 Un tra[facility] -acetaminop 3-30 tablet by ity of hen 5-325 00:00: mouth 4 [place] mg tablet ([facility]) [facility] times [place] daily. pregabalin 2023-0 Yes 150mg Take 1 Univ ers 150 mg 3-30 capsule by ity of capsule 00:00: mouth in [place] the [facility] morning Branch and 1 capsule in the evening. meloxicam 2023-0 Yes Univers 15 mg 3-30 ity of tablet 00:00: [place] [facility] HYDROcodone 2023-0 Yes 1{tbl} Take 1 Un travis -acetaminop 3-30 tablet by ity of hen 5-325 00:00: mouth 4 [place] mg tablet ([facility]) [facility] times [place] daily. pregabalin 2023-0 Yes 150mg Take 1 Univ ers 150 mg 3-30 capsule by ity of capsule 00:00: mouth in [place] the [facility] morning Branch and 1 capsule in the evening. meloxicam 2023-0 Yes Univers 15 mg 3-30 ity of tablet 00:00: [place] [facility] HYDROcodone 2023-0 Yes 1{tbl} Take 1 Un tra[facility] -acetaminop 3-30 tablet by ity of hen 5-325 00:00: mouth 4 [place] mg tablet 00 ([facility]) Medical times Branch daily. pregabalin 2023-0 Yes 150mg Take 1 Univ ers 150 mg 3-30 capsule by ity of capsule 00:00: mouth in [place] the Medical morning Branch and 1 capsule in the evening. meloxicam 2023-0 Yes Univers 15 mg 3-30 ity of tablet 00:00: [place] 00 [facility] HYDROcodone 2023-0 Yes 1{tbl} Take 1 [facility] tra[facility] -acetaminop 3-30 tablet by ity of hen 5-325 00:00: mouth 4 [place] mg tablet 00 ([facility]) Medical times Branch daily. pregabalin 2023-0 Yes 150mg Take 1 Univ ers 150 mg 3-30 capsule by ity of capsule 00:00: mouth in [place] the Medical morning Branch and 1 capsule in the evening. meloxicam 2023-0 Yes Univers 15 mg 3-30 ity of tablet 00:00: [place] [facility] HYDROcodone 2023-0 Yes 1{tbl} Take 1 Un tra[facility] -acetaminop 3-30 tablet by ity of hen 5-325 00:00: mouth 4 [place] mg tablet 00 ([facility]) Medical times [place] daily. pregabalin 2023-0 Yes 150mg Take 1 Univ ers 150 mg 3-30 capsule by ity of capsule 00:00: mouth in [place] the Medical morning Branch and 1 capsule in the evening. meloxicam 2023-0 Yes Univers 15 mg 3-30 ity of tablet 00:00: [place] 00 [facility] HYDROcodone 2023-0 Yes 1{tbl} Take 1 [facility] tra[facility] -acetaminop 3-30 tablet by ity of hen 5-325 00:00: mouth 4 [place] mg tablet 00 (four) Medical times Branch daily. pregabalin 2023-0 Yes 150mg Take 1 Univ ers 150 mg 3-30 capsule by ity of capsule 00:00: mouth in [place] the Medical morning Branch and 1 capsule in the evening. meloxicam 2023-0 Yes [facility] 15 mg 3-30 ity of tablet 00:00: [place] [facility] HYDROcodone 2023-0 Yes 1{tbl} Take 1 Un tra[facility] -acetaminop 3-30 tablet by ity of hen 5-325 00:00: mouth 4 [place] mg tablet 00 (four) Medical times [place] daily. pregabalin 2023-0 Yes 150mg Take 1 [...] [place] mg tablet 00 (four) Medical times [place] daily. pregabalin 2023-0 Yes 150mg Take 1 Univ ers 150 mg 3-30 capsule by ity of capsule 00:00: mouth in [place] the Medical morning Branch and 1 capsule in the evening. meloxicam 2023-0 Yes [facility] 15 mg 3-30 ity of tablet 00:00: [place] 00 [facility] HYDROcodone 2023-0 Yes 1{tbl} Take 1 [facility] tra[facility] -acetaminop 3-30 tablet by ity of hen 5-325 00:00: mouth 4 [place] mg tablet 00 (four) Medical times [place] daily. pregabalin 2023-0 Yes 150mg Take 1 Univ ers 150 mg 3-30 capsule by ity of capsule 00:00: mouth in [place] the Medical morning Branch and 1 capsule in the evening. meloxicam 2023-0 Yes Univers 15 mg 3-30 ity of tablet 00:00: [place] 00 Medical Branch HYDROcodone 2023-0 Yes 1{tbl} Take 1 Un tra[facility] -acetaminop 3-30 tablet by ity of hen 5-325 00:00: mouth 4 [place] mg tablet 00 (four) Medical times Branch daily. pregabalin 2023-0 Yes 150mg Take 1 Univ ers 150 mg 3-30 capsule by ity of capsule 00:00: mouth in [place] the Medical morning Branch and 1 capsule in the evening. meloxicam 2023-0 Yes Univers 15 mg 3-30 ity of tablet 00:00: [place] 00 Medical Branch HYDROcodone 2023-0 Yes 1{tbl} [...] 3-15 TABLET BY ity of tablet 00:00: [facility] EVERY DAY Medical AT BEDTIME Branch [...] 3-15 TABLET BY ity of tablet 00:00: [facility] 00 EVERY DAY Medical AT BEDTIME Branch [...] 3-15 TABLET BY ity of tablet 00:00: [facility] EVERY DAY Medical AT BEDTIME Branch FOR 30 DAYS cyclobenzap 3-0 Yes TAKE 1 Univ ers rine 10 mg 3-15 TABLET BY ity of tablet 00:00: [facility] THREE Medical TIMES A Branch DAY NEEDED FOR 30 DAYS amitriptyli 2023-0 Yes TAKE 1 Univ ers ne 50 mg 3-15 TABLET BY ity of tablet 00:00: [facility] EVERY DAY Medical AT BEDTIME Branch FOR 30 DAYS cyclobenzap 3-0 Yes TAKE 1 Univ ers rine 10 mg 3-15 TABLET BY ity of tablet 00:00: MOUTH THREE Medical TIMES A Branch DAY NEEDED FOR 30 DAYS amitriptyli 2023-0 Yes TAKE 1 Univ ers ne 50 mg 3-15 TABLET BY ity of tablet 00:00: [facility] EVERY DAY Medical AT BEDTIME Branch FOR 30 DAYS cyclobenzap 2023-0 Yes TAKE 1 Univ ers rine 10 mg 3-15 TABLET BY ity of tablet 00:00: MOUTH THREE Medical TIMES A Branch DAY NEEDED FOR 30 DAYS amitriptyli 2023-0 Yes TAKE 1 Univ ers ne 50 mg 3-15 TABLET BY ity of tablet 00:00: [facility] 00 EVERY DAY Medical AT BEDTIME Branch [...] tablet 00:00: MOUTH EVERY DAY [facility] Branch FOR 30 DAYS cyclobenzap 2022-0 Yes TAKE 1 Univ ers rine 10 mg 3-15 TABLET BY ity of tablet 00:00: [facility] THREE Medical TIMES A Branch DAY NEEDED FOR 30 DAYS amitriptyli 2022-0 Yes TAKE 1 Univ ers ne 50 mg 3-15 TABLET BY ity of tablet 00:00: [facility] cyclobenzap 2022-0 Yes TAKE 1 Univ ers rine 10 mg 3-15 TABLET BY ity of tablet 00:00: MOUTH THREE Medical TIMES A Branch DAY NEEDED FOR 30 DAYS amitriptyli 3-0 Yes TAKE 1 Univ ers ne 50 mg 3-15 TABLET BY ity of tablet 00:00: [facility] EVERY DAY Medical AT [facility] FOR 30 DAYS cyclobenzap 3-0 Yes TAKE 1 Univ ers rine 10 mg 3-15 TABLET BY ity of tablet 00:00: [facility] THREE Medical TIMES A Branch DAY NEEDED FOR 30 DAYS amitriptyli 2023-0 Yes TAKE 1 Univ ers ne 50 mg 3-15 TABLET BY ity of tablet 00:00: MOUTH EVERY DAY Medical AT [facility] Branch FOR 30 DAYS cyclobenzap 3-0 Yes TAKE 1 Univ ers rine 10 mg 3-15 TABLET BY ity of tablet 00:00: [facility] THREE Medical TIMES A Branch DAY NEEDED FOR 30 DAYS amitriptyli 2023-0 Yes TAKE 1 Univ ers ne 50 mg 3-15 TABLET BY ity of tablet 00:00: [facility] EVERY DAY Medical AT BEDTIME Branch FOR 30 DAYS cyclobenzap 2023-0 Yes TAKE 1 Univ ers rine 10 mg 3-15 TABLET BY ity of tablet 00:00: MOUTH [place] 00 THREE Medical TIMES A Branch DAY NEEDED FOR 30 DAYS amitriptyli 2023-0 Yes TAKE 1 Univ ers ne 50 mg 3-15 TABLET BY ity of tablet 00:00: [facility] EVERY DAY Medical AT BEDTIME Branch FOR 30 DAYS cyclobenzap 2023-0 Yes TAKE 1 Univ ers rine 10 mg 3-15 TABLET BY ity of tablet 00:00: THREE Medical TIMES A Branch DAY NEEDED FOR 30 DAYS amitriptyli 2023-0 Yes TAKE 1 Univ ers ne 50 mg 3-15 TABLET BY ity of tablet 00:00: [facility] EVERY DAY Medical AT BEDTIME Branch FOR 30 DAYS cyclobenzap 3-0 Yes TAKE 1 Univ ers rine 10 mg 3-15 TABLET BY ity of tablet 00:00: [facility] THREE Medical TIMES A Branch DAY NEEDED FOR 30 DAYS amitriptyli 2023-0 Yes TAKE 1 Univ ers ne 50 mg 3-15 TABLET BY ity of tablet 00:00: [facility] EVERY DAY Medical AT BEDTIME Branch FOR 30 DAYS cyclobenzap 3-0 Yes TAKE 1 Univ ers rine 10 mg 3-15 TABLET BY ity of tablet 00:00: [facility] THREE Medical TIMES A Branch DAY NEEDED FOR 30 DAYS amitriptyli 3-0 Yes TAKE 1 Univ ers ne 50 mg 3-15 TABLET BY ity of tablet 00:00: [facility] cyclobenzap 3-0 Yes TAKE 1 Univ ers rine 10 mg 3-15 TABLET BY ity of tablet 00:00: [facility] THREE Medical TIMES A Branch DAY NEEDED FOR 30 DAYS amitriptyli 2023-0 Yes TAKE 1 Univ ers ne 50 mg 3-15 TABLET BY ity of tablet 00:00: [facility] EVERY DAY Medical AT BEDTIME Branch FOR 30 DAYS cyclobenzap 2023-0 Yes TAKE 1 Univ ers rine 10 mg 3-15 TABLET BY ity of tablet 00:00: [facility] THREE Medical TIMES A Branch DAY NEEDED FOR 30 DAYS amitriptyli 2023-0 Yes TAKE 1 Univ ers ne 50 mg 3-15 TABLET BY ity of tablet 00:00: [facility] EVERY DAY Medical AT BEDTIME Branch [...] 3-15 TABLET BY ity of tablet 00:00: [facility] EVERY DAY Medical AT BEDTIME Branch FOR 30 DAYS cyclobenzap 2023-0 Yes TAKE 1 Univ ers rine 10 mg 3-15 TABLET BY ity of tablet 00:00: [facility] THREE Medical TIMES A Branch DAY NEEDED FOR 30 DAYS amitriptyli 2023-0 Yes TAKE 1 Univ ers ne 50 mg 3-15 TABLET BY ity of tablet 00:00: [facility] EVERY DAY Medical AT BEDTIME Branch FOR 30 DAYS cyclobenzap 2023-0 Yes TAKE 1 Univ ers rine 10 mg 3-15 TABLET BY ity of tablet 00:00: [facility] THREE Medical TIMES A Branch DAY NEEDED FOR 30 DAYS amitriptyli 2023-0 Yes TAKE 1 Univ ers ne 50 mg 3-15 TABLET BY ity of tablet 00:00: [facility] EVERY DAY Medical AT BEDTIME Branch FOR 30 DAYS cyclobenzap 2023-0 Yes TAKE 1 Univ ers rine 10 mg 3-15 TABLET BY ity of tablet 00:00: [facility] THREE Medical TIMES A Branch DAY NEEDED FOR 30 DAYS amitriptyli 2023-0 Yes TAKE 1 Univ ers ne 50 mg 3-15 TABLET BY ity of tablet 00:00: [facility] EVERY DAY Medical AT BEDTIME Branch FOR 30 DAYS cyclobenzap 2023-0 Yes TAKE 1 Univ ers rine 10 mg 3-15 TABLET BY ity of tablet 00:00: MOUTH THREE Medical TIMES A Branch DAY NEEDED FOR 30 DAYS amitriptyli 2023-0 Yes TAKE 1 Univ ers ne 50 mg 3-15 TABLET BY ity of tablet 00:00: [facility] EVERY DAY Medical AT BEDTIME Branch FOR 30 DAYS cyclobenzap 2023-0 Yes TAKE 1 [facility] [facility] ers rine 10 mg 3-15 TABLET BY ity of tablet 00:00: MOUTH 00 THREE Medical TIMES A Branch DAY NEEDED FOR 30 DAYS amitriptyli 2022-0 Yes TAKE 1 [facility] [facility] ers ne 50 mg 3-15 TABLET BY ity of tablet 00:00: MOUTH [place] 00 EVERY DAY Medical AT BEDTIME Branch FOR 30 DAYS NaCl 0.9% 0 2022- No 500mL at 999 [facility] [facility] ers (NS) bolus 11-03 mL/hr, 500 it y of infusion 15:45: 16:19 mL, IV [place] 500 mL 00 :00 [place]gy[place], Medical ONCE, 1 Branch dose, On Wed11/03/22 at 0945, STAT LORazepam 2022-0 2022- No 1mg 1 mg, Slow U nivers (ATIVAN) 11-03 IV Push, ity of injection 1 15:00: 15:23 [place]CE, 1 [place] mg 00 :00 dose, On Medical Branch 11/03/22 at 0900, STAT diphenhydrA 0 2022- No 25mg 25 mg, Uni vers MINE 11-03 Slow IV ity of (BENADRYL) 15:00: 15:18 Push, [place] injection 00 :00 ONCE, 1 Medical 25 mg dose, On Branch Wed11/03/22 at 0900, STAT LORazepam 2022-0 Yes [id number] 1mg Take 1 U nivers (ATIVAN) 1 - tablet by ity of mg tablet 00:00: mouth (two) Medical times Branch daily as needed for Anxiety or Agitation. hydrOXYzine 2022-0 Yes [id number] 25mg Take 1 Univers (VISTARIL) 2-28 capsule by ity of 25 mg 00:00: mouth 3 [place] capsule 00 (three) Medical times Branch daily as needed for Anxiety. LORazepam 2022-0 Yes [id number] 1mg Take 1 U nivers (ATIVAN) 1 2-28 tablet by ity of mg tablet 00:00: mouth 2 [place] 00 (two) Medical times Branch daily as needed for Anxiety or Agitation. hydrOXYzine 2023-0 Yes [id number] 25mg Take 1 Univers (VISTARIL) 2-28 capsule by ity of 25 mg 00:00: mouth 3 [place] capsule 00 (three) Medical times Branch daily as needed for Anxiety. LORazepam 2023-0 Yes [id number] 1mg Take 1 U nivers (ATIVAN) 1 2-28 tablet by ity of mg tablet 00:00: mouth 2 [place] 00 (two) Medical times Branch daily as needed for Anxiety or Agitation. hydrOXYzine 2023-0 Yes [id number] 25mg Take 1 Univers (VISTARIL) 2-28 capsule by ity of 25 mg 00:00: mouth 3 [place] capsule 00 (three) Medical times Branch daily as needed for Anxiety. LORazepam 2023-0 Yes [id number] 1mg Take 1 U nivers (ATIVAN) 1 2-28 tablet by ity of mg tablet 00:00: mouth 2 [place] 00 (two) Medical times Branch daily as needed for Anxiety or Agitation. hydrOXYzine 2023-0 Yes [id number] 25mg Take 1 Univers (VISTARIL) 2-28 capsule by ity of 25 mg 00:00: mouth 3 [place] capsule 00 (three) Medical times Branch daily as needed for Anxiety. LORazepam 2023-0 Yes [id number] 1mg Take 1 U nivers (ATIVAN) 1 2-28 tablet by ity of mg tablet 00:00: mouth 2 00 (two) Medical times Branch daily as needed for Anxiety or Agitation. hydrOXYzine 2023-0 Yes [id number] 25mg Take 1 Univers (VISTARIL) 2-28 capsule by ity of 25 mg 00:00: mouth 3 [place] capsule 00 (three) Medical times Branch daily as needed for Anxiety. LORazepam 2023-0 Yes [id number] 1mg Take 1 U nivers (ATIVAN) 1 2-28 tablet by ity of mg tablet 00:00: mouth 2 [place] 00 (two) Medical times Branch daily as needed for Anxiety or Agitation. hydrOXYzine 2023-0 Yes [id number] 25mg Take 1 Univers (VISTARIL) 2-28 capsule by ity of 25 mg 00:00: mouth 3 [place] capsule 00 (three) Medical times Branch daily as needed for Anxiety. LORazepam 2023-0 Yes [id number] 1mg Take 1 U nivers (ATIVAN) 1 2-28 tablet by ity of mg tablet 00:00: mouth 2 [place] 00 (two) Medical times Branch daily as needed for Anxiety or Agitation. hydrOXYzine 2023-0 Yes [id number] 25mg Take 1 Univers (VISTARIL) 2-28 capsule by ity of 25 mg 00:00: mouth 3 [place] capsule 00 (three) Medical times Branch daily as needed for Anxiety. LORazepam 2023-0 Yes [id number] 1mg Take 1 U nivers (ATIVAN) 1 2-28 tablet by ity of mg tablet 00:00: mouth 2 (two) Medical times Branch daily as needed for Anxiety or Agitation. hydrOXYzine 2023-0 Yes [id number] 25mg Take 1 Univers (VISTARIL) 2-28 capsule by ity of 25 mg 00:00: mouth 3 [place] capsule 00 (three) Medical times Branch daily as needed for Anxiety. LORazepam 2023-0 Yes [id number] 1mg Take 1 U nivers (ATIVAN) 1 2-28 tablet by ity of mg tablet 00:00: mouth 2 (two) Medical times Branch daily as needed for Anxiety or Agitation. hydrOXYzine 2023-0 Yes [id number] 25mg Take 1 Univers (VISTARIL) 2-28 capsule by ity of 25 mg 00:00: mouth 3 [place] capsule 00 (three) Medical times Branch daily as needed for Anxiety. LORazepam 2023-0 Yes [id number] 1mg Take 1 U nivers (ATIVAN) 1 2-28 tablet by ity of mg tablet 00:00: mouth 2 (two) Medical times Branch daily as needed for Anxiety or Agitation. hydrOXYzine 2023-0 Yes [id number] 25mg Take 1 Univers (VISTARIL) 2-28 capsule by ity of 25 mg 00:00: mouth 3 [place] capsule 00 (three) Medical times Branch daily as needed for Anxiety. LORazepam 2023-0 Yes [id number] 1mg Take 1 U nivers (ATIVAN) 1 2-28 tablet by ity of mg tablet 00:00: mouth 2 [place] 00 (two) Medical times Branch daily as needed for Anxiety or Agitation. hydrOXYzine 2023-0 Yes [id number] 25mg Take 1 Univers (VISTARIL) 2-28 capsule by ity of 25 mg 00:00: mouth 3 [place] capsule 00 (three) Medical times Branch daily as needed for Anxiety. LORazepam 2023-0 Yes [id number] 1mg Take 1 U nivers (ATIVAN) 1 2-28 tablet by ity of mg tablet 00:00: mouth 2 [place] 00 (two) Medical times Branch daily as needed for Anxiety or Agitation. hydrOXYzine 2023-0 Yes [id number] 25mg Take 1 Univers (VISTARIL) 2-28 capsule by ity of 25 mg 00:00: mouth 3 [place] capsule 00 (three) Medical times Branch daily as needed for Anxiety. LORazepam 2023-0 Yes [id number] 1mg Take 1 U nivers (ATIVAN) 1 2-28 tablet by ity of mg tablet 00:00: mouth 2 [place] 00 (two) Medical times Branch daily as needed for Anxiety or Agitation. hydrOXYzine 2023-0 Yes [id number] 25mg Take 1 Univers (VISTARIL) 2-28 capsule by ity of 25 mg 00:00: mouth 3 [place] capsule 00 (three) Medical times Branch daily as needed for Anxiety. LORazepam 2023-0 Yes [id number] 1mg Take 1 U nivers (ATIVAN) 1 2-28 tablet by ity of mg tablet 00:00: mouth 2 [place] 00 (two) Medical times Branch daily as needed for Anxiety or Agitation. hydrOXYzine 2023-0 Yes [id number] 25mg Take 1 Univers (VISTARIL) 2-28 capsule by ity of 25 mg 00:00: mouth 3 [place] capsule 00 (three) Medical times Branch daily as needed for Anxiety. LORazepam 2023-0 Yes [id number] 1mg Take 1 U nivers (ATIVAN) 1 2-28 tablet by ity of mg tablet 00:00: mouth 2 [place] 00 (two) Medical times Branch daily as needed for Anxiety or Agitation. hydrOXYzine 2023-0 Yes [id number] 25mg Take 1 Univers (VISTARIL) 2-28 capsule by ity of 25 mg 00:00: mouth 3 [place] capsule 00 (three) Medical times Branch daily as needed for Anxiety. LORazepam 2023-0 Yes [id number] 1mg Take 1 U nivers (ATIVAN) 1 2-28 tablet by ity of mg tablet 00:00: mouth 2 [place] 00 (two) Medical times Branch daily as needed for Anxiety or Agitation. hydrOXYzine 2023-0 Yes [id number] 25mg Take 1 Univers (VISTARIL) 2-28 capsule by ity of 25 mg 00:00: mouth 3 [place] capsule 00 (three) Medical times Branch daily as needed for Anxiety. LORazepam 2023-0 Yes [id number] 1mg Take 1 U nivers (ATIVAN) 1 2-28 tablet by ity of mg tablet 00:00: mouth 2 [place] 00 (two) Medical times Branch daily as needed for Anxiety or Agitation. hydrOXYzine 2023-0 Yes [id number] 25mg Take 1 Univers (VISTARIL) 2-28 capsule by ity of 25 mg 00:00: mouth 3 [place] capsule 00 (three) Medical times Branch daily as needed for Anxiety. LORazepam 2023-0 Yes [id number] 1mg Take 1 U nivers (ATIVAN) 1 2-28 tablet by ity of mg tablet 00:00: mouth 2 [place] 00 (two) Medical times Branch daily as needed for Anxiety or Agitation. hydrOXYzine 2023-0 Yes [id number] 25mg Take 1 Univers (VISTARIL) 2-28 capsule by ity of 25 mg 00:00: mouth 3 [place] capsule 00 (three) Medical times Branch daily as needed for Anxiety. LORazepam 2023-0 Yes [id number] 1mg Take 1 U nivers (ATIVAN) 1 2-28 tablet by ity of mg tablet 00:00: mouth 2 [place] 00 (two) Medical times Branch daily as needed for Anxiety or Agitation. hydrOXYzine 2023-0 Yes [id number] 25mg Take 1 Univers (VISTARIL) 2-28 capsule by ity of 25 mg 00:00: mouth 3 [place] capsule 00 (three) Medical times Branch daily as needed for Anxiety. LORazepam 2023-0 Yes [id number] 1mg Take 1 U nivers (ATIVAN) 1 2-28 tablet by ity of mg tablet 00:00: mouth 2 [place] 00 (two) Medical times Branch daily as needed for Anxiety or Agitation. hydrOXYzine 2023-0 Yes [id number] 25mg Take 1 Univers (VISTARIL) 2-28 capsule by ity of 25 mg 00:00: mouth 3 [place] capsule 00 (three) Medical times Branch daily as needed for Anxiety. LORazepam 2023-0 Yes [id number] 1mg Take 1 U nivers (ATIVAN) 1 2-28 tablet by ity of mg tablet 00:00: mouth 2 [place] 00 (two) Medical times Branch daily as needed for Anxiety or Agitation. hydrOXYzine 2023-0 Yes [id number] 25mg Take 1 Univers (VISTARIL) 2-28 capsule by ity of 25 mg 00:00: mouth 3 [place] capsule 00 (three) Medical times Branch daily as needed for Anxiety. LORazepam 2023-0 Yes [id number] 1mg Take 1 U nivers (ATIVAN) 1 2-28 tablet by ity of mg tablet 00:00: mouth 2 [place] 00 (two) Medical times Branch daily as needed for Anxiety or Agitation. hydrOXYzine 2023-0 Yes [id number] 25mg Take 1 Univers (VISTARIL) 2-28 capsule by ity of 25 mg 00:00: mouth 3 [place] capsule 00 (three) Medical times Branch daily as needed for Anxiety. LORazepam 2023-0 Yes [id number] 1mg Take 1 U nivers (ATIVAN) 1 2-28 tablet by ity of mg tablet 00:00: mouth 2 [place] 00 (two) Medical times Branch daily as needed for Anxiety or Agitation. hydrOXYzine 2023-0 Yes [id number] 25mg Take 1 Univers (VISTARIL) 2-28 capsule by ity of 25 mg 00:00: mouth 3 [place] capsule 00 (three) Medical times Branch daily as needed for Anxiety. LORazepam 2023-0 Yes [id number] 1mg Take 1 U nivers (ATIVAN) 1 2-28 tablet by ity of mg tablet 00:00: mouth 2 [place] 00 (two) Medical times Branch daily as needed for Anxiety or Agitation. hydrOXYzine 2023-0 Yes [id number] 25mg Take 1 Univers (VISTARIL) 2-28 capsule by ity of 25 mg 00:00: mouth 3 [place] capsule 00 (three) Medical times Branch daily as needed for Anxiety. LORazepam 2023-0 Yes [id number] 1mg Take 1 U nivers (ATIVAN) 1 2-28 tablet by ity of mg tablet 00:00: mouth 2 [place] 00 (two) Medical times Branch daily as needed for Anxiety or Agitation. hydrOXYzine 2023-0 Yes [id number] 25mg Take 1 Univers (VISTARIL) 2-28 capsule by ity of 25 mg 00:00: mouth 3 [place] capsule 00 (three) Medical times Branch daily as needed for Anxiety. LORazepam 2023-0 Yes [id number] 1mg Take 1 U nivers (ATIVAN) 1 2-28 tablet by ity of mg tablet 00:00: mouth 2 [place] 00 (two) Medical times Branch daily as needed for Anxiety or Agitation. hydrOXYzine 2023-0 Yes [id number] 25mg Take 1 Univers (VISTARIL) 2-28 capsule by ity of 25 mg 00:00: mouth 3 [place] capsule 00 (three) Medical times Branch daily as needed for Anxiety. LORazepam 2023-0 Yes [id number] 1mg Take 1 U nivers (ATIVAN) 1 2-28 tablet by ity of mg tablet 00:00: mouth 2 [place] 00 (two) Medical times Branch daily as needed for Anxiety or Agitation. hydrOXYzine 2023-0 Yes [id number] 25mg Take 1 Univers (VISTARIL) 2-28 capsule by ity of 25 mg 00:00: mouth 3 [place] capsule 00 (three) Medical times Branch daily as needed for Anxiety. LORazepam 2023-0 Yes [id number] 1mg Take 1 U nivers (ATIVAN) 1 2-28 tablet by ity of mg tablet 00:00: mouth 2 [place] 00 (two) Medical times Branch daily as needed for Anxiety or Agitation. hydrOXYzine 2023-0 Yes [id number] 25mg Take 1 Univers (VISTARIL) 2-28 capsule by ity of 25 mg 00:00: mouth 3 [place] capsule 00 (three) Medical times Branch daily as needed for Anxiety. LORazepam 2023-0 Yes [id number] 1mg Take 1 U nivers (ATIVAN) 1 2-28 tablet by ity of mg tablet 00:00: mouth 2 [place] 00 (two) Medical times Branch daily as needed for Anxiety or Agitation. hydrOXYzine 2023-0 Yes [id number] 25mg Take 1 Univers (VISTARIL) 2-28 capsule by ity of 25 mg 00:00: mouth 3 [place] capsule 00 (three) Medical times Branch daily as needed for Anxiety. LORazepam 2023-0 Yes [id number] 1mg Take 1 U nivers (ATIVAN) 1 2-28 tablet by ity of mg tablet 00:00: mouth 2 [place] 00 (two) Medical times Branch daily as needed for Anxiety or Agitation. hydrOXYzine 2023-0 Yes [id number] 25mg Take 1 Univers (VISTARIL) 2-28 capsule by ity of 25 mg 00:00: mouth 3 [place] capsule 00 (three) Medical times Branch daily as needed for Anxiety. LORazepam 2023-0 Yes [id number] 1mg Take 1 [facility] (ATIVAN) 1 2-28 tablet by ity of mg tablet 00:00: mouth 2 [place] 00 (two) Medical times Branch daily as needed for Anxiety or Agitation. hydrOXYzine 2023-0 Yes [id number] 25mg Take 1 [facility] (VISTARIL) 2-28 capsule by ity of 25 mg 00:00: mouth 3 [place] capsule 00 (three) Medical times Branch daily as needed for Anxiety. LORazepam 3-0 Yes [id number] 1mg Take 1 [facility] (ATIVAN) 1 2-28 tablet by ity of mg tablet 00:00: mouth 2 [place] (two) Medical times Branch daily as needed for Anxiety or Agitation. hydrOXYzine 2022-0 Yes [id number] 25mg Take 1 [facility] (VISTARIL) 2-28 capsule by ity of 25 mg 00:00: mouth 3 [place] capsule 00 (three) Medical times Branch daily as needed for Anxiety. iopamidol 0 2022- No [id number] 75mL 75 mL, [facility] (ISOVUE 10-13 Intravenou ity o f 370-500 mL) 09:30: 21:29 s, ONCE, 1 [place] injection 00 :00 dose, On Medica l 75 mL e 10/13/22 Branch at 0330, Routine dicyclomine 2022-0 2022- No 20mg 20 mg, Uni vers (BENTYL) 10-13 Intramuscu ity of injection 09:15: 21:14 lar, ONCE, [place] 20 mg 00 :00 1 dose, On Medical 10/13/22 Branch at 0315, Routine famotidine 2022-0 Yes TAKE 1 [facility] rs 20 mg 1-25 TABLET BY ity of tablet 00:00: MOUTH IN 00 THE Medical MORNING Branch AND IN THE EVENING FOR 5 DAYS famotidine 2022-0 Yes TAKE 1 [facility] 20 mg 1-25 TABLET BY ity of tablet 00:00: MOUTH IN [place] 00 THE Medical MORNING Branch AND IN THE EVENING FOR 5 DAYS famotidine 2022-0 Yes TAKE 1 [facility] 20 mg 1-25 TABLET BY ity of tablet 00:00: MOUTH IN [place] 00 THE Medical MORNING Branch AND IN THE EVENING FOR 5 DAYS famotidine 0 Yes TAKE 1 [facility] 20 mg 1-25 TABLET BY ity of tablet 00:00: MOUTH IN [place] 00 THE Medical MORNING Branch AND IN THE EVENING FOR 5 DAYS famotidine 0 Yes TAKE 1 [facility] 20 mg 1-25 TABLET BY ity of tablet 00:00: MOUTH IN [place] 00 THE Medical MORNING Branch AND IN THE EVENING FOR 5 DAYS famotidine 0 Yes TAKE 1 [facility] 20 mg 1-25 TABLET BY ity of tablet 00:00: MOUTH IN [place] [address] THE Medical MORNING Branch AND IN THE EVENING FOR 5 DAYS famotidine 0 Yes TAKE 1 [facility] rs 20 mg 1-25 TABLET BY ity of tablet 00:00: MOUTH IN [place] 00 THE Medical MORNING Branch AND IN THE EVENING FOR 5 DAYS famotidine 2022-0 Yes TAKE 1 [facility] 20 mg 1-25 TABLET BY ity of tablet 00:00: MOUTH IN [place] 00 THE Medical MORNING Branch AND IN THE EVENING FOR 5 DAYS famotidine 2022-0 Yes TAKE 1 [facility] 20 mg 1-25 TABLET BY ity of tablet 00:00: MOUTH IN [place] [address] THE Medical MORNING Branch AND IN THE EVENING FOR 5 DAYS famotidine 0 Yes TAKE 1 [facility] 20 mg 1-25 TABLET BY ity of tablet 00:00: MOUTH IN [place] 00 THE Medical MORNING Branch AND IN THE EVENING FOR 5 DAYS famotidine 2022-0 Yes TAKE 1 [facility] 20 mg 1-25 TABLET BY ity of tablet 00:00: MOUTH IN [place] [address] THE Medical MORNING Branch AND IN THE EVENING FOR 5 DAYS famotidine 0 Yes TAKE 1 [facility] 20 mg 1-25 TABLET BY ity of tablet 00:00: MOUTH IN [place] [address] THE Medical MORNING Branch AND IN THE EVENING FOR 5 DAYS famotidine 2022-0 2023- No TAKE 1 [facility] ers 20 [...] Medical 09/09/22 Branch at 1830, LUPE dexamethaso No 10mg 10 mg, Uni vers ne sod phos 09-10 Intramuscu i ty of PF 00:30: 00:53 lar, ONCE, [place] injection 00 :00 1 dose, On Medi shanice 10 mg 09/09/22 Branch at 1830, 1 mL predniSONE No [id number] 40mg Take 2 [facility] 20 mg 09-10 tablets by ity of tablet 00:00: 05:59 mouth in [place] 00 :00 the Medical morning Branch for 5 days. famotidine No [id number] 20mg Take 1 [facility] (PEPCID) 20 09-09 tablet by it y of mg tablet 00:00: 05:59 mouth in [facility] as 00 :00 the Medical morning Branch and 1 tablet in the evening. Do all this for 5 days. HYDROcodone 2021-09 No 1{tbl} 1 tablet, [facility] -acetaminop 10-20- Oral, ity of hen (NORCO) 00:00: 22:59 ONCE, 1 [place] 10-325 mg 00 :00 dose, On Medica l tablet 1 e Branch tablet 08/18/22 at 1800, Routine oseltamivir 2021-09- No [id number] 75mg Take 1 [facility] (TAMIFLU) 213 12-19 capsule by ity of 75 mg 00:00: 05:59 mouth in [place] capsule 00 :00 the Medical morning Branch and 1 capsule in the evening. Do all this for 5 days. oxyCODONE 5 2021-0 Yes 5mg Take 1 [facility] ers mg 9-28 tablet by ity of immediate 00:00: mouth. [place] release 00 Medical tablet Branch oxyCODONE 5 2021-0 Yes 5mg Take 1 [facility] ers mg 9-28 tablet by ity of immediate 00:00: mouth. release Medical tablet Branch oxyCODONE 5 2021-0 Yes 5mg Take 1 [facility] ers mg 9-28 tablet by ity of immediate 00:00: mouth. release Medical tablet Branch oxyCODONE 5 2021-0 Yes 5mg Take 1 [facility] ers mg 9-28 tablet by ity of immediate 00:00: mouth. Medical tablet Branch oxyCODONE 5 2021-0 Yes 5mg Take 1 [facility] ers mg 9-28 tablet by ity of immediate 00:00: mouth. release Medical tablet Branch oxyCODONE 5 2021-0 Yes [...] mouth. release Medical tablet Branch oxyCODONE 5 2021-0 Yes 5mg Take 1 [facility] ers mg 9-28 tablet by ity of immediate 00:00: mouth. release Medical tablet Branch oxyCODONE 5 2021-0 Yes 5mg Take 1 [facility] ers mg 9-28 tablet by ity of immediate 00:00: mouth. [place] Medical tablet Branch naproxen 2-0 Yes naproxen Unive rs 500 mg 9-16 500 mg ity of tablet 00:00: tablet Medical Branch naproxen 2022-0 Yes naproxen Unive rs 500 mg 9-16 500 mg ity of tablet 00:00: tablet [place] [facility] Branch naproxen 2-0 Yes naproxen Unive rs 500 mg 9-16 500 mg ity of tablet 00:00: tablet [place] [facility] Branch naproxen 2-0 Yes naproxen Unive rs 500 mg 9-16 500 mg ity of tablet 00:00: tablet [place] [facility] naproxen 2-0 Yes naproxen Unive rs 500 mg 9-16 500 mg ity of tablet 00:00: tablet [place] [facility] Branch naproxen 2-0 Yes naproxen Unive rs 500 mg 9-16 500 mg ity of tablet 00:00: tablet [place] [facility] Branch naproxen 2-0 Yes naproxen Unive rs 500 mg 9-16 500 mg ity of tablet 00:00: tablet [place] [facility] Branch naproxen 2-0 Yes naproxen Unive rs 500 mg 9-16 500 mg ity of tablet 00:00: tablet [place] [facility] Branch naproxen 2-0 Yes naproxen Unive rs 500 mg 9-16 500 mg ity of tablet 00:00: tablet [place] [facility] naproxen 2-0 Yes naproxen Unive rs 500 mg 9-16 500 mg ity of tablet 00:00: tablet [place] [facility] Branch naproxen 2-0 Yes naproxen Unive rs 500 mg 9-16 500 mg ity of tablet 00:00: tablet [place] [facility] Branch naproxen 2-0 Yes naproxen Unive rs 500 mg 9-16 500 mg ity of tablet 00:00: tablet [place] [facility] naproxen 2-0 3- No naproxen [facility] ers 500 mg 9-16 05-12 500 mg ity of tablet 00:00: 00:00 tablet [place] 00 :00 Medical Branch prazosin 2 2021-0 Yes 2mg Take 1 [facility] rs mg capsule 9-15 capsule by ity of 00:00: mouth. [address] Branch prazosin 2 2021-0 Yes 2mg Take 1 [facility] rs mg capsule 9-15 capsule by ity of 00:00: mouth. [address] Branch prazosin 2 2021-0 Yes 2mg Take [...] 00:00: mouth. Medical Branch prazosin 2 2021-0 3- No 2mg Take 1 [facility] ers mg capsule 9-15 05-12 capsule by it y of 00:00: 00:00 mouth. [place] 00 :00 Medical Branch naloxone 4 2021-0 Yes CALL 911. Un [facility] mg/actuatio 8-25 SPR ity of n nasal 00:00: CONTENTS [place] spray OF ONE Medical SPRAYER Branch (0.1ML) INTO [...] OPIOID EMERGENCY PERSIST, ALTERNATE NOSTRILS lidocaine 5 2022-0 Yes lidocaine [facility] % (700 8-25 5 % ity of mg/patch) 00:00: topical [place] patch 00 patch Medical Branch naloxone 4 2021-0 Yes CALL 911. Un travis mg/actuatio 8-25 SPR ity of n nasal 00:00: CONTENTS [place] spray 00 OF ONE Medical SPRAYER Branch (0.1ML) INTO ONE NOSTRIL. REPEAT IN 2-3 MIN IF SYMPTOMS OF OPIOID EMERGENCY PERSIST, ALTERNATE NOSTRILS lidocaine 5 0 Yes lidocaine U nivers % (700 8-25 [...] OPIOID EMERGENCY PERSIST, ALTERNATE NOSTRILS lidocaine 5 0 Yes lidocaine [facility] % (700 8-25 5 % ity of mg/patch) 00:00: topical [place] patch 00 patch Medical Branch naloxone 4 0 Yes CALL 911. Un travis mg/actuatio 8-25 SPR ity of n nasal 00:00: CONTENTS [place] spray 00 OF ONE Medical SPRAYER Branch (0.1ML) INTO ONE NOSTRIL. REPEAT IN 2-3 MIN IF SYMPTOMS OF OPIOID EMERGENCY PERSIST, ALTERNATE NOSTRILS lidocaine 5 0 Yes lidocaine [facility] nivers % (700 8-25 [...] 00 patch Medical Branch naloxone 4 2021-0 2023- No CALL 911. U nivers mg/actuatio 8-25 [...] mg 8-17 ity of 24 hr 00:00: capsule Medical Branch venlafaxine Yes Univer s [...] of 00:00: [place] 00 Medical Branch HYDROcodone 2022-0 Yes TAKE 1 [facility] ers -acetaminop 7-06 [...] -acetaminop 5-17 05-[address] [facility] ([facility]) 13:50: 00:00 mouth [facility] 10-325 mg 15 :00 every 6 l per tablet (six) hours as needed .acute pain. prn HYDROcodone 1{tbl} Q6H Take 1 [facility] -acetaminop 5-17 05-[address] [facility] ([facility]) 13:50: 00:00 mouth [facility] 10-325 mg 15 :00 every 6 l per tablet (six) hours as needed .acute pain. prn HYDROcodone 1{tbl} Q6H Take 1 [facility] -acetaminop 5-17 05-[address] [facility] ([facility] Imaging) 13:50: 00:00 mouth [facility] 10-325 mg 15 :00 every 6 l per tablet (six) hours as needed .acute pain. prn HYDROcodone 1{tbl} Q6H Take 1 [facility] -acetaminop 5-17 05-[address] [facility] ([facility] Imaging) 13:50: 00:00 mouth [facility] 10-325 mg 15 :00 every 6 l per tablet (six) hours as needed .acute pain. prn HYDROcodone 1{tbl} Q6H Take 1 [facility] -acetaminop 5-17 05-[address] [facility] ([facility]) 13:50: 00:00 mouth [facility] 10-325 mg 15 :00 every 6 l per tablet (six) hours as needed .acute pain. prn tiZANidine 4mg Q8H Take 4 mg M ethodi [...] hours as needed. cyclobenzap 2022-0 Yes 10mg Q.[id number] Take 10 mg Methodi rine 5-17 [id number] mouth [address] (FLEXERIL) 13:09: 3D [...] hours as needed. cyclobenzap 2022-0 Yes 10mg Q.[id number] Take 10 mg Methodi rine 5-17 [id number] by mouth [address] (FLEXERIL) 13:09: 3D [...] hours as needed. cyclobenzap 2022-0 Yes 10mg Q.[id number] Take 10 mg Methodi rine 5-17 [id number] by mouth [address] (FLEXERIL) 13:09: 3D [...] hours as needed. cyclobenzap 2022-0 Yes 10mg Q.[id number] Take 10 mg Methodi rine 5-17 [id number] by mouth [address] (FLEXERIL) 13:09: 3D [...] hours as needed. cyclobenzap 2022-0 Yes 10mg Q.[id number] Take 10 mg Methodi rine 5-17 [id number] [facility] [address] (FLEXERIL) 13:09: 3D [...] hours as needed. cyclobenzap 2022-0 Yes 10mg Q.[id number] Take 10 mg Methodi rine 5-17 [id number] mouth [address] (FLEXERIL) 13:09: 3D (three) [facility] 10 mg 39 times a l tablet day as needed for muscle spasms. cyclobenzap 2022-0 Yes 10mg Q.[id number] Take 10 mg Methodi rine 5-17 [id number] mouth [address] (FLEXERIL) 13:09: 3D [...] 12 l (twelve) hours as needed. HYDROcodone 2-0 2021- No [id number] 1{tbl} Q6H Take 1 [facility] -acetaminop 5-17 06-[address] [facility] ([facility]) 00:00: 04:59 mouth [facility] 10-325 mg 00 :00 every 6 l per tablet (six) hours as needed for severe pain for up to 30 days .chronic pain. prn Max Daily Amount: 4 tablets HYDROcodone 2022-0 2022- No [id number] 1{tbl} Q6H Take 1 [facility] -acetaminop 5-17 06-[address] [facility] ([facility]) 00:00: 04:59 mouth [facility] 10-325 mg 00 :00 every 6 l per tablet (six) hours as needed for severe pain for up to 30 days .chronic pain. prn Max Daily Amount: 4 tablets HYDROcodone 2022-0 2022- No [id number] 1{tbl} Q6H Take 1 [facility] -acetaminop 5-17 06-[address] [facility] ([facility]) 00:00: 04:59 mouth [facility] 10-325 mg 00 :00 every 6 l per tablet (six) hours as needed for severe pain for up to 30 days .chronic pain. prn Max Daily Amount: 4 tablets HYDROcodone 2022-0 2022- No [id number] 1{tbl} Q6H Take 1 [facility] -acetaminop 5-17 06-[address] [facility] ([facility]) 00:00: 04:59 mouth [facility] 10-325 mg 00 :00 every 6 l per tablet (six) hours as needed for severe pain for up to 30 days .chronic pain. prn Max Daily Amount: 4 tablets HYDROcodone 2022-0 2022- No [id number] 1{tbl} Q6H Take 1 [facility] -acetaminop 5-17 06-[address] [facility] ([facility]) 00:00: 04:59 mouth [facility] 10-325 mg 00 :00 every 6 l per tablet (six) hours as needed for severe pain for up to 30 days .chronic pain. prn Max Daily Amount: 4 tablets HYDROcodone 2022-0 2022- No [id number] 1{tbl} Q6H Take 1 [facility] -acetaminop 5-17 06-[address] [facility] ([facility]) 00:00: 04:59 mouth [facility] 10-325 mg 00 :00 every 6 l per tablet (six) hours as needed for severe pain for up to 30 days .chronic pain. prn Max Daily Amount: 4 tablets HYDROcodone 2021- No [id number] 1{tbl} Q6H Take 1 [facility] -acetaminop 5-17 [...] up to 60 days. diazePAM 2020-09- No [id number] 10mg Q12H Take 1 [facility] (VALIUM) 10 10-15 tablet (10 s t MG tablet 00:00: 05:59 mg total) [facility] 00 :00 by mouth l every 12 (twelve) hours as needed for anxiety for up to 30 days. diazePAM 2020-09- No [id number] 10mg Q12H Take 1 [facility] (VALIUM) 10 10-15 tablet (10 s t MG tablet 00:00: 05:59 mg total) [facility] 00 :00 by mouth l every 12 (twelve) hours as needed for anxiety for up to 30 days. diazePAM 2020-09- No [id number] 10mg Q12H Take 1 [facility] (VALIUM) 10 10-15 tablet (10 s t MG tablet 00:00: 05:59 mg total) [facility] 00 :00 by mouth l every 12 (twelve) hours as needed for anxiety for up to 30 days. diazePAM 2020-09- No [id number] 10mg Q12H Take 1 [facility] (VALIUM) [...] 10 mg [facility] (VALIUM) 10 09-09 11-[address] MG tablet 08:53: 00:00 every 8 [facility] 41 :00 (eight) l hours as needed for anxiety. diazePAM 2020-09- No [id number] 10mg Q12H Take 1 [facility] (VALIUM) 10 09-09 12-05 tablet (10 s t MG tablet 00:00: 05:59 mg total) [facility] 00 :00 by mouth l every 12 (twelve) hours as needed for anxiety for up to 30 days. diazePAM 2020-09- No [id number] 10mg Q12H Take 1 [facility] (VALIUM) 10 - 12-05 tablet (10 s t MG tablet 00:00: 05:59 mg total) [facility] 00 :00 by mouth l every 12 (twelve) hours as needed for anxiety for up to 30 days. diazePAM 2020-09- No [id number] 10mg Q12H Take 1 [facility] (VALIUM) 10 - 12-05 tablet (10 s t MG tablet 00:00: 05:59 mg total) [facility] 00 :00 by mouth l every 12 (twelve) hours as needed for anxiety for up to 30 days. diazePAM 2020-09- No [id number] 10mg Q12H Take 1 [facility] (VALIUM) 10 09-09 12-05 tablet (10 s t MG tablet 00:00: 05:59 mg total) [facility] 00 :00 by mouth l every 12 (twelve) hours as needed for anxiety for up to 30 days. azithromyci 2020-09- No [id number] 250mg QD Take 1 Methodi n 008 11-[address] (Zithromax 00:00: 00:00 (250 mg [facility]) 250 00 :00 total) by l MG tablet mouth daily. Take 2 tablets the first day, then 1 tablet daily for 4 days. pantoprazol Yes [id number] 40mg Take 1 Univers e 4-18 tablet by ity of (PROTONIX) 00:00: mouth [place] 40 mg EC 00 daily. Medical tablet Branch dicyclomine Yes [id number] 20mg Take 1 [facility] 20 mg 4-18 tablet by ity of tablet 00:00: mouth [place] 00 every 6 Medical (six) Branch hours as needed for Abdominal pain. ondansetron Yes [id number] 4mg Take 1 [facility] (ZOFRAN) 4 4-18 tablet by ity of mg tablet 00:00: mouth [place] 00 every 8 Medical (eight) Branch hours as needed for Nausea and Vomiting (N/V). pantoprazol Yes [id number] 40mg Take 1 [facility] e 4-18 tablet by ity of (PROTONIX) 00:00: mouth [place] 40 mg EC 00 daily. Medical tablet Branch dicyclomine Yes [id number] 20mg Take 1 [facility] 20 mg 4-18 tablet by ity of tablet 00:00: mouth [place] 00 every 6 Medical (six) Branch hours as needed for Abdominal pain. ondansetron Yes [id number] 4mg Take 1 [facility] (ZOFRAN) 4 4-18 tablet by ity of mg tablet 00:00: mouth [place] 00 every 8 Medical (eight) Branch hours as needed for Nausea and Vomiting (N/V). pantoprazol 2021-0 Yes [id number] 40mg Take 1 [facility] e 4-18 tablet by ity of (PROTONIX) 00:00: mouth [place] 40 mg EC 00 daily. Medical tablet Branch dicyclomine 0 Yes [id number] 20mg Take 1 [facility] 20 mg 4-18 tablet by ity of tablet 00:00: mouth [place] 00 every 6 Medical (six) Branch hours as needed for Abdominal pain. ondansetron 2020-0 Yes [id number] 4mg Take 1 [facility] (ZOFRAN) 4 4-18 tablet by ity of mg tablet 00:00: mouth [place] 00 every 8 Medical (eight) Branch hours as needed for Nausea and Vomiting (N/V). pantoprazol 2020-0 Yes [id number] 40mg Take 1 [facility] e 4-18 tablet by ity of (PROTONIX) 00:00: mouth [place] 40 mg EC 00 daily. Medical tablet Branch dicyclomine 0 Yes [id number] 20mg Take 1 [facility] 20 mg 4-18 tablet by ity of tablet 00:00: mouth [place] 00 every 6 Medical (six) Branch hours as needed for Abdominal pain. ondansetron 0 Yes [id number] 4mg Take 1 [facility] (ZOFRAN) 4 4-18 tablet by ity of mg tablet 00:00: mouth [place] 00 every 8 Medical (eight) Branch hours as needed for Nausea and Vomiting (N/V). pantoprazol 2020-0 Yes [id number] 40mg Take 1 [facility] e 4-18 tablet by ity of (PROTONIX) 00:00: mouth [place] 40 mg EC 00 daily. Medical tablet Branch dicyclomine 0 Yes [id number] 20mg Take 1 [facility] 20 mg 4-18 tablet by ity of tablet 00:00: mouth [place] 00 every 6 Medical (six) Branch hours as needed for Abdominal pain. ondansetron 2020-0 Yes [id number] 4mg Take 1 [facility] (ZOFRAN) 4 4-18 tablet by ity of mg tablet 00:00: mouth [place] 00 every 8 Medical (eight) Branch hours as needed for Nausea and Vomiting (N/V). pantoprazol 2020-0 Yes [id number] 40mg Take 1 [facility] e 4-18 tablet by ity of (PROTONIX) 00:00: mouth [place] 40 mg EC 00 daily. Medical tablet Branch dicyclomine 2020-0 Yes [id number] 20mg Take 1 [facility] 20 mg 4-18 tablet by ity of tablet 00:00: mouth [place] 00 every 6 Medical (six) Branch hours as needed for Abdominal pain. ondansetron 2020-0 Yes [id number] 4mg Take 1 [facility] (ZOFRAN) 4 4-18 tablet by ity of mg tablet 00:00: mouth [place] 00 every 8 Medical (eight) Branch hours as needed for Nausea and Vomiting (N/V). pantoprazol 2020-0 Yes [id number] 40mg Take 1 [facility] e 4-18 tablet by ity of (PROTONIX) 00:00: mouth [place] 40 mg EC 00 daily. Medical tablet Branch dicyclomine 2020-0 Yes [id number] 20mg Take 1 [facility] 20 mg 4-18 tablet by ity of tablet 00:00: mouth [place] 00 every 6 Medical (six) Branch hours as needed for Abdominal pain. ondansetron 2020-0 Yes [id number] 4mg Take 1 [facility] (ZOFRAN) 4 4-18 tablet by ity of mg tablet 00:00: mouth [place] 00 every 8 Medical (eight) Branch hours as needed for Nausea and Vomiting (N/V). pantoprazol 2020-0 Yes [id number] 40mg Take 1 [facility] e 4-18 tablet by ity of (PROTONIX) 00:00: mouth [place] 40 mg EC 00 daily. Medical tablet Branch dicyclomine 2020-0 Yes [id number] 20mg Take 1 [facility] 20 mg 4-18 tablet by ity of tablet 00:00: mouth [place] 00 every 6 Medical (six) Branch hours as needed for Abdominal pain. ondansetron 2020-0 Yes [id number] 4mg Take 1 [facility] (ZOFRAN) 4 4-18 tablet by ity of mg tablet 00:00: mouth [place] 00 every 8 Medical (eight) Branch hours as needed for Nausea and Vomiting (N/V). pantoprazol 2020-0 Yes [id number] 40mg Take 1 Univers e 4-18 tablet by ity of (PROTONIX) 00:00: mouth [place] 40 mg EC 00 daily. Medical tablet Branch dicyclomine 2020-0 Yes [id number] 20mg Take 1 [facility] 20 mg 4-18 tablet by ity of tablet 00:00: mouth [place] 00 every 6 Medical (six) Branch hours as needed for Abdominal pain. ondansetron 2020-0 Yes [id number] 4mg Take 1 [facility] (ZOFRAN) 4 4-18 tablet by ity of mg tablet 00:00: mouth [place] 00 every 8 Medical (eight) Branch hours as needed for Nausea and Vomiting (N/V). pantoprazol 2020-0 Yes [id number] 40mg Take 1 [facility] e 4-18 tablet by ity of (PROTONIX) 00:00: mouth [place] 40 mg EC 00 daily. Medical tablet Branch dicyclomine 2020-0 Yes [id number] 20mg Take 1 [facility] 20 mg 4-18 tablet by ity of tablet 00:00: mouth [place] 00 every 6 Medical (six) Branch hours as needed for Abdominal pain. ondansetron 2020-0 Yes [id number] 4mg Take 1 [facility] (ZOFRAN) 4 4-18 tablet by ity of mg tablet 00:00: mouth [place] 00 every 8 Medical (eight) Branch hours as needed for Nausea and Vomiting (N/V). pantoprazol 2020-0 Yes [id number] 40mg Take 1 [facility] e 4-18 tablet by ity of (PROTONIX) 00:00: mouth [place] 40 mg EC 00 daily. Medical tablet Branch dicyclomine 2020-0 Yes [id number] 20mg Take 1 [facility] 20 mg 4-18 tablet by ity of tablet 00:00: mouth [place] 00 every 6 Medical (six) Branch hours as needed for Abdominal pain. ondansetron 2020-0 Yes [id number] 4mg Take 1 [facility] (ZOFRAN) 4 4-18 tablet by ity of mg tablet 00:00: mouth [place] 00 every 8 Medical (eight) Branch hours as needed for Nausea and Vomiting (N/V). pantoprazol 2020-0 Yes [id number] 40mg Take 1 [facility] e 4-18 tablet by ity of (PROTONIX) 00:00: mouth [place] 40 mg EC 00 daily. Medical tablet Branch dicyclomine 2020-0 Yes [id number] 20mg Take 1 [facility] 20 mg 4-18 tablet by ity of tablet 00:00: mouth [place] 00 every 6 Medical (six) Branch hours as needed for Abdominal pain. ondansetron 2020-0 Yes [id number] 4mg Take 1 [facility] (ZOFRAN) 4 4-18 tablet by ity of mg tablet 00:00: mouth [place] 00 every 8 Medical (eight) Branch hours as needed for Nausea and Vomiting (N/V). pantoprazol 2020-0 Yes [id number] 40mg Take 1 [facility] e 4-18 tablet by ity of (PROTONIX) 00:00: mouth [place] 40 mg EC 00 daily. Medical tablet Branch dicyclomine 2020-0 Yes [id number] 20mg Take 1 [facility] 20 mg 4-18 tablet by ity of tablet 00:00: mouth [place] 00 every 6 Medical (six) Branch hours as needed for Abdominal pain. ondansetron 2020-0 Yes [id number] 4mg Take 1 [facility] (ZOFRAN) 4 4-18 tablet by ity of mg tablet 00:00: mouth [place] 00 every 8 Medical (eight) Branch hours as needed for Nausea and Vomiting (N/V). pantoprazol 2020-0 Yes [id number] 40mg Take 1 [facility] e 4-18 tablet by ity of (PROTONIX) 00:00: mouth [place] 40 mg EC 00 daily. Medical tablet Branch dicyclomine 0 Yes [id number] 20mg Take 1 [facility] 20 mg 4-18 tablet by ity of tablet 00:00: mouth [place] 00 every 6 Medical (six) Branch hours as needed for Abdominal pain. ondansetron 2020-0 Yes [id number] 4mg Take 1 [facility] (ZOFRAN) 4 4-18 tablet by ity of mg tablet 00:00: mouth [place] 00 every 8 Medical (eight) Branch hours as needed for Nausea and Vomiting (N/V). pantoprazol 2020-0 Yes [id number] 40mg Take 1 [facility] e 4-18 tablet by ity of (PROTONIX) 00:00: mouth [place] 40 mg EC 00 daily. Medical tablet Branch dicyclomine 2020-0 Yes [id number] 20mg Take 1 [facility] 20 mg 4-18 tablet by ity of tablet 00:00: mouth [place] 00 every 6 Medical (six) Branch hours as needed for Abdominal pain. ondansetron 2020-0 Yes [id number] 4mg Take 1 [facility] (ZOFRAN) 4 4-18 tablet by ity of mg tablet 00:00: mouth [place] 00 every 8 Medical (eight) Branch hours as needed for Nausea and Vomiting (N/V). pantoprazol 2020-0 Yes [id number] 40mg Take 1 [facility] e 4-18 tablet by ity of (PROTONIX) 00:00: mouth [place] 40 mg EC 00 daily. Medical tablet Branch dicyclomine 2020-0 Yes [id number] 20mg Take 1 [facility] 20 mg 4-18 tablet by ity of tablet 00:00: mouth [place] 00 every 6 Medical (six) Branch hours as needed for Abdominal pain. ondansetron 2020-0 Yes [id number] 4mg Take 1 [facility] (ZOFRAN) 4 4-18 tablet by ity of mg tablet 00:00: mouth [place] 00 every 8 Medical (eight) Branch hours as needed for Nausea and Vomiting (N/V). pantoprazol 2020-0 Yes [id number] 40mg Take 1 [facility] e 4-18 tablet by ity of (PROTONIX) 00:00: mouth [place] 40 mg EC 00 daily. Medical tablet Branch dicyclomine 2020-0 Yes [id number] 20mg Take 1 [facility] 20 mg 4-18 tablet by ity of tablet 00:00: mouth [place] 00 every 6 Medical (six) Branch hours as needed for Abdominal pain. ondansetron 2020-0 Yes [id number] 4mg Take 1 [facility] (ZOFRAN) 4 4-18 tablet by ity of mg tablet 00:00: mouth [place] 00 every 8 Medical (eight) Branch hours as needed for Nausea and Vomiting (N/V). pantoprazol 2020-0 Yes [id number] 40mg Take 1 [facility] e 4-18 tablet by ity of (PROTONIX) 00:00: mouth [place] 40 mg EC 00 daily. Medical tablet Branch dicyclomine 2020-0 Yes [id number] 20mg Take 1 [facility] 20 mg 4-18 tablet by ity of tablet 00:00: mouth [place] 00 every 6 Medical (six) Branch hours as needed for Abdominal pain. ondansetron 2020-0 Yes [id number] 4mg Take 1 [facility] (ZOFRAN) 4 4-18 tablet by ity of mg tablet 00:00: mouth [place] 00 every 8 Medical (eight) Branch hours as needed for Nausea and Vomiting (N/V). pantoprazol 2020-0 Yes [id number] 40mg Take 1 [facility] e 4-18 tablet by ity of (PROTONIX) 00:00: mouth [place] 40 mg EC 00 daily. Medical tablet Branch dicyclomine 2020-0 Yes [id number] 20mg Take 1 [facility] 20 mg 4-18 tablet by ity of tablet 00:00: mouth [place] 00 every 6 Medical (six) Branch hours as needed for Abdominal pain. ondansetron 2020-0 Yes [id number] 4mg Take 1 [facility] (ZOFRAN) 4 4-18 tablet by ity of mg tablet 00:00: mouth [place] 00 every 8 Medical (eight) Branch hours as needed for Nausea and Vomiting (N/V). pantoprazol 2020-0 Yes [id number] 40mg Take 1 [facility] e 4-18 tablet by ity of (PROTONIX) 00:00: mouth [place] 40 mg EC 00 daily. Medical tablet Branch dicyclomine 2020-0 Yes [id number] 20mg Take 1 [facility]-18 tablet by [facility] tablet 00:00: mouth [place] 00 every 6 Medical (six) Branch hours as needed for Abdominal pain. ondansetron 2020-0 Yes [id number] 4mg Take 1 [facility] (ZOFRAN) 4 4-18 tablet by [facility] of mg tablet 00:00: mouth [place] 00 every 8 Medical (eight) Branch hours as needed for Nausea and Vomiting (N/V). pantoprazol 2020-0 Yes [id number] 40mg Take 1 [facility] e 4-18 tablet by [facility] of (PROTONIX) 00:00: mouth [place] 40 mg EC 00 daily. Medical tablet Branch dicyclomine 2020-0 Yes [id number] 20mg Take 1 [facility] 20 mg 4-18 tablet by [facility] of tablet 00:00: mouth [place] 00 every 6 Medical (six) Branch hours as needed for Abdominal pain. ondansetron 2020-0 Yes [id number] 4mg Take 1 [facility] (ZOFRAN) 4 4-18 tablet by [facility] of mg tablet 00:00: mouth [place] 00 every 8 Medical (eight) Branch hours as needed for Nausea and Vomiting (N/V). pantoprazol 2020-0 Yes [id number] 40mg Take 1 [facility] e 4-18 tablet by [facility] of (PROTONIX) 00:00: mouth [place] 40 mg EC 00 daily. Medical tablet Branch dicyclomine 2020-0 Yes [id number] 20mg Take 1 [facility] 20 mg 4-18 tablet by [facility] of tablet 00:00: mouth [place] 00 every 6 Medical (six) Branch hours as needed for Abdominal pain. ondansetron 2020-0 Yes [id number] 4mg Take 1 [facility] (ZOFRAN) 4 4-18 tablet by [facility] of mg tablet 00:00: mouth [place] 00 every 8 Medical (eight) Branch hours as needed for Nausea and Vomiting (N/V). pantoprazol 2020-0 Yes [id number] 40mg Take 1 [facility] e 4-18 tablet by [facility] of (PROTONIX) 00:00: mouth [place] 40 mg EC 00 daily. Medical tablet Branch dicyclomine 2020-0 Yes [id number] 20mg Take 1 [facility] 20 mg 4-18 tablet by [facility] of tablet 00:00: mouth [place] 00 every 6 Medical (six) Branch hours as needed for Abdominal pain. ondansetron 2020-0 Yes [id number] 4mg Take 1 [facility] (ZOFRAN) 4 4-18 tablet by [facility] of mg tablet 00:00: mouth [place] 00 every 8 Medical (eight) Branch hours as needed for Nausea and Vomiting (N/V). pantoprazol 2020-0 Yes [id number] 40mg Take 1 [facility] e 4-18 tablet by [facility] of (PROTONIX) 00:00: mouth [place] 40 mg EC 00 daily. Medical tablet Branch dicyclomine 2020-0 Yes [id number] 20mg Take 1 [facility] 20 mg 4-18 tablet by [facility] of tablet 00:00: mouth [place] 00 every 6 Medical (six) Branch hours as needed for Abdominal pain. ondansetron 2020-0 Yes [id number] 4mg Take 1 [facility] (ZOFRAN) 4 4-18 tablet by [facility] of mg tablet 00:00: mouth [place] 00 every 8 Medical (eight) Branch hours as needed for Nausea and Vomiting (N/V). pantoprazol 2020-0 Yes [id number] 40mg Take 1 [facility] e 4-18 tablet by [facility] of (PROTONIX) 00:00: mouth [place] 40 mg EC 00 daily. Medical tablet Branch dicyclomine 2020-0 Yes [id number] 20mg Take 1 [facility] 20 mg 4-18 tablet by [facility] of tablet 00:00: mouth [place] 00 every 6 Medical (six) Branch hours as needed for Abdominal pain. ondansetron 2020-0 Yes [id number] 4mg Take 1 [facility] (ZOFRAN) 4 4-18 tablet by [facility] of mg tablet 00:00: mouth [place] 00 every 8 Medical (eight) Branch hours as needed for Nausea and Vomiting (N/V). pantoprazol 2020-0 Yes [id number] 40mg Take 1 [facility] e 4-18 tablet by [facility] of (PROTONIX) 00:00: mouth [place] 40 mg EC 00 daily. Medical tablet Branch dicyclomine 2020-0 Yes [id number] 20mg Take 1 [facility] 20 mg 4-18 tablet by [facility] of tablet 00:00: mouth [place] 00 every 6 Medical (six) Branch hours as needed for Abdominal pain. ondansetron 2020-0 Yes [id number] 4mg Take 1 [facility] (ZOFRAN) 4 4-18 tablet by [facility] of mg tablet 00:00: mouth [place] 00 every 8 Medical (eight) Branch hours as needed for Nausea and Vomiting (N/V). pantoprazol 2020-0 Yes [id number] 40mg Take 1 [facility] e 4-18 tablet by [facility] of (PROTONIX) 00:00: mouth [place] 40 mg EC 00 daily. Medical tablet Branch dicyclomine 2020-0 Yes [id number] 20mg Take 1 [facility] 20 mg 4-18 tablet by [facility] of tablet 00:00: mouth [place] 00 every 6 Medical (six) Branch hours as needed for Abdominal pain. ondansetron 2020-0 Yes [id number] 4mg Take 1 [facility] (ZOFRAN) 4 4-18 tablet by [facility] of mg tablet 00:00: mouth [place] 00 every 8 Medical (eight) Branch hours as needed for Nausea and Vomiting (N/V). pantoprazol 2020-0 Yes [id number] 40mg Take 1 [facility] e 4-18 tablet by [facility] of (PROTONIX) 00:00: mouth [place] 40 mg EC 00 daily. Medical tablet Branch dicyclomine 2020-0 Yes [id number] 20mg Take 1 [facility] 20 mg 4-18 tablet by [facility] of tablet 00:00: mouth [place] 00 every 6 Medical (six) Branch hours as needed for Abdominal pain. ondansetron 2020-0 Yes [id number] 4mg Take 1 [facility] (ZOFRAN) 4 4-18 tablet by [facility] of mg tablet 00:00: mouth [place] 00 every 8 Medical (eight) Branch hours as needed for Nausea and Vomiting (N/V). pantoprazol 2020-0 Yes [id number] 40mg Take 1 [facility] e 4-18 tablet by [facility] of (PROTONIX) 00:00: mouth [place] 40 mg EC 00 daily. Medical tablet Branch dicyclomine 2020-0 Yes [id number] 20mg Take 1 [facility] 20 mg 4-18 tablet by [facility] of tablet 00:00: mouth [place] 00 every 6 Medical (six) Branch hours as needed for Abdominal pain. ondansetron 2020-0 Yes [id number] 4mg Take 1 [facility] (ZOFRAN) 4 4-18 tablet by [facility] of mg tablet 00:00: mouth [place] 00 every 8 Medical (eight) Branch hours as needed for Nausea and Vomiting (N/V). pantoprazol 2020-0 Yes [id number] 40mg Take 1 [facility] e 4-18 tablet by [facility] of (PROTONIX) 00:00: mouth [place] 40 mg EC 00 daily. Medical tablet Branch dicyclomine 2020-0 Yes [id number] 20mg Take 1 [facility] 20 mg 4-18 tablet by [facility] of tablet 00:00: mouth [place] 00 every 6 Medical (six) Branch hours as needed for Abdominal pain. ondansetron 2020-0 Yes [id number] 4mg Take 1 [facility] (ZOFRAN) 4 4-18 tablet by [facility] of mg tablet 00:00: mouth [place] 00 every 8 Medical (eight) Branch hours as needed for Nausea and Vomiting (N/V). pantoprazol 2020-0 Yes [id number] 40mg Take 1 [facility] e 4-18 tablet by [facility] of (PROTONIX) 00:00: mouth [place] 40 mg EC 00 daily. Medical tablet Branch dicyclomine 2020-0 Yes [id number] 20mg Take 1 [facility] 20 mg 4-18 tablet by [facility] of tablet 00:00: mouth [place] 00 every 6 Medical (six) Branch hours as needed for Abdominal pain. ondansetron 2020-0 Yes [id number] 4mg Take 1 [facility] (ZOFRAN) 4 4-18 tablet by [facility] of mg tablet 00:00: mouth [place] 00 every 8 Medical (eight) Branch hours as needed for Nausea and Vomiting (N/V). pantoprazol 2020-0 Yes [id number] 40mg Take 1 [facility] e 4-18 tablet by [facility] of (PROTONIX) 00:00: mouth [place] 40 mg EC 00 daily. Medical tablet Branch dicyclomine 2020-0 Yes [id number] 20mg Take 1 [facility] 20 mg 4-18 tablet by [facility] of tablet 00:00: mouth [place] 00 every 6 Medical (six) Branch hours as needed for Abdominal pain. ondansetron 2020-0 Yes [id number] 4mg Take 1 [facility] (ZOFRAN) 4 4-18 tablet by [facility] of mg tablet 00:00: mouth [place] 00 every 8 Medical (eight) Branch hours as needed for Nausea and Vomiting (N/V). pantoprazol 2020-0 Yes [id number] 40mg Take 1 [facility] e 4-18 tablet by [facility] of (PROTONIX) 00:00: mouth [place] 40 mg EC 00 daily. Medical tablet Branch dicyclomine 2020-0 Yes [id number] 20mg Take 1 [facility] 20 mg 4-18 tablet by [facility] of tablet 00:00: mouth [place] 00 every 6 Medical (six) Branch hours as needed for Abdominal pain. ondansetron 2020-0 Yes [id number] 4mg Take 1 [facility] (ZOFRAN) 4 4-18 tablet by [facility] of mg tablet 00:00: mouth [place] 00 every 8 Medical (eight) Branch hours as needed for Nausea and Vomiting (N/V). pantoprazol 2020-0 Yes [id number] 40mg Take 1 [facility] e 4-18 tablet by [facility] of (PROTONIX) 00:00: mouth [place] 40 mg EC 00 daily. Medical tablet Branch dicyclomine 2020-0 Yes [id number] 20mg Take 1 [facility] 20 mg 4-18 tablet by [facility] of tablet 00:00: mouth [place] 00 every 6 Medical (six) Branch hours as needed for Abdominal pain. ondansetron 2020-0 Yes [id number] 4mg Take 1 [facility] (ZOFRAN) 4 4-18 tablet by [facility] of mg tablet 00:00: mouth [place] 00 every 8 Medical (eight) Branch hours as needed for Nausea and Vomiting (N/V). pantoprazol 2020-0 Yes [id number] 40mg Take 1 [facility] e 4-18 tablet by [facility] of (PROTONIX) 00:00: mouth [place] 40 mg EC 00 daily. Medical tablet Branch dicyclomine 2020-0 Yes [id number] 20mg Take 1 [facility] 20 mg 4-18 tablet by [facility] of tablet 00:00: mouth [place] 00 every 6 Medical (six) Branch hours as needed for Abdominal pain. ondansetron 2020-0 Yes [id number] 4mg Take 1 [facility] (ZOFRAN) 4 4-18 tablet by [facility] of mg tablet 00:00: mouth [place] 00 every 8 Medical (eight) Branch hours as needed for Nausea and Vomiting (N/V). pantoprazol 2020-0 Yes [id number] 40mg Take 1 [facility] e 4-18 tablet by [facility] of (PROTONIX) 00:00: mouth [place] 40 mg EC 00 daily. Medical tablet Branch dicyclomine 2020-0 Yes [id number] 20mg Take 1 [facility] 20 mg 4-18 tablet by [facility] of tablet 00:00: mouth [place] 00 every 6 Medical (six) Branch hours as needed for Abdominal pain. ondansetron 2020-0 Yes [id number] 4mg Take 1 [facility] (ZOFRAN) 4 4-18 tablet by [facility] of mg tablet 00:00: mouth [place] 00 every 8 Medical (eight) Branch hours as needed for Nausea and Vomiting (N/V). pantoprazol 2020-0 Yes [id number] 40mg Take 1 [facility] e 4-18 tablet by [facility] of (PROTONIX) 00:00: mouth [place] 40 mg EC 00 daily. Medical tablet Branch dicyclomine 2020-0 Yes [id number] 20mg Take 1 [facility] 20 mg 4-18 tablet by [facility] of tablet 00:00: mouth [place] 00 every 6 Medical (six) Branch hours as needed for Abdominal pain. ondansetron 2020-0 Yes [id number] 4mg Take 1 [facility] (ZOFRAN) 4 4-18 tablet by [facility] of mg tablet 00:00: mouth [place] 00 every 8 Medical (eight) Branch hours as needed for Nausea and Vomiting (N/V). pantoprazol 2020-0 Yes [id number] 40mg Take 1 [facility] e 4-18 tablet by [facility] of (PROTONIX) 00:00: mouth [place] 40 mg EC 00 daily. Medical tablet Branch dicyclomine 2020-0 Yes [id number] 20mg Take 1 [facility] 20 mg 4-18 tablet by [facility] of tablet 00:00: mouth [place] 00 every 6 Medical (six) Branch hours as needed for Abdominal pain. ondansetron 2020-0 Yes [id number] 4mg Take 1 [facility] (ZOFRAN) 4 4-18 tablet by [facility] of mg tablet 00:00: mouth [place] 00 every 8 Medical (eight) Branch hours as needed for Nausea and Vomiting (N/V). pantoprazol 2020-0 Yes [id number] 40mg Take 1 [facility] e 4-18 tablet by [facility] of (PROTONIX) 00:00: mouth [place] 40 mg EC 00 daily. Medical tablet Branch dicyclomine 2020-0 Yes [id number] 20mg Take 1 [facility] 20 mg 4-18 tablet by [facility] of tablet 00:00: mouth [place] 00 every 6 Medical (six) Branch hours as needed for Abdominal pain. ondansetron 2020-0 Yes [id number] 4mg Take 1 [facility] (ZOFRAN) 4 4-18 tablet by [facility] of mg tablet 00:00: mouth [place] 00 every 8 Medical (eight) Branch hours as needed for Nausea and Vomiting (N/V). pantoprazol 2020-0 Yes [id number] 40mg Take 1 [facility] e 4-18 tablet by [facility] of (PROTONIX) 00:00: mouth [place] 40 mg EC 00 daily. Medical tablet Branch dicyclomine 2020-0 Yes [id number] 20mg Take 1 [facility] 20 mg 4-18 tablet by [facility] of tablet 00:00: mouth [place] 00 every 6 Medical (six) Branch hours as needed for Abdominal pain. ondansetron 2020-0 Yes [id number] 4mg Take 1 [facility] (ZOFRAN) 4 4-18 tablet by [facility] of mg tablet 00:00: mouth [place] 00 every 8 Medical (eight) Branch hours as needed for Nausea and Vomiting (N/V). pantoprazol 2020-0 Yes [id number] 40mg Take 1 [facility] e 4-18 tablet by [facility] of (PROTONIX) 00:00: mouth [place] 40 mg EC 00 daily. Medical tablet Branch dicyclomine 2020-0 Yes [id number] 20mg Take 1 [facility] 20 mg 4-18 tablet by [facility] of tablet 00:00: mouth [place] 00 every 6 Medical (six) Branch hours as needed for Abdominal pain. ondansetron 2020-0 Yes [id number] 4mg Take 1 [facility] (ZOFRAN) 4 4-18 tablet by [facility] of mg tablet 00:00: mouth [place] 00 every 8 Medical (eight) Branch hours as needed for Nausea and Vomiting (N/V). pantoprazol 2020-0 Yes [id number] 40mg Take 1 [facility] e 4-18 tablet by [facility] of (PROTONIX) 00:00: mouth [place] 40 mg EC 00 daily. Medical tablet Branch dicyclomine 2020-0 Yes [id number] 20mg Take 1 [facility] 20 mg 4-18 tablet by [facility] of tablet 00:00: mouth [place] 00 every 6 Medical (six) Branch hours as needed for Abdominal pain. ondansetron 2020-0 Yes [id number] 4mg Take 1 [facility] (ZOFRAN) 4 4-18 tablet by [facility] of mg tablet 00:00: mouth [place] 00 every 8 Medical (eight) Branch hours as needed for Nausea and Vomiting (N/V). pantoprazol 2020-0 Yes [id number] 40mg Take 1 [facility] e 4-18 tablet by [facility] of (PROTONIX) 00:00: mouth [place] 40 mg EC 00 daily. Medical tablet Branch dicyclomine 2020-0 Yes [id number] 20mg Take 1 [facility] 20 mg 4-18 tablet by [facility] of tablet 00:00: mouth [place] 00 every 6 Medical (six) Branch hours as needed for Abdominal pain. ondansetron 2020-0 Yes [id number] 4mg Take 1 [facility] (ZOFRAN) 4 4-18 tablet by [facility] of mg tablet 00:00: mouth [place] 00 every 8 Medical (eight) Branch hours as needed for Nausea and Vomiting (N/V). pantoprazol 2020-0 Yes [id number] 40mg Take 1 [facility] e 4-18 tablet by [facility] of (PROTONIX) 00:00: mouth [place] 40 mg EC 00 daily. Medical tablet Branch dicyclomine 2020-0 Yes [id number] 20mg Take 1 [facility] 20 mg 4-18 tablet by [facility] of tablet 00:00: mouth [place] 00 every 6 Medical (six) Branch hours as needed for Abdominal pain. ondansetron 2020-0 Yes [id number] 4mg Take 1 [facility] (ZOFRAN) 4 4-18 tablet by [facility] of mg tablet 00:00: mouth [place] 00 every 8 Medical (eight) Branch hours as needed for Nausea and Vomiting (N/V). pantoprazol 2020-0 Yes [id number] 40mg Take 1 [facility] e 4-18 tablet by [facility] of (PROTONIX) 00:00: mouth [place] 40 mg EC 00 daily. Medical tablet Branch dicyclomine 2020-0 Yes [id number] 20mg Take 1 [facility] 20 mg 4-18 tablet by [facility] of tablet 00:00: mouth [place] 00 every 6 Medical (six) Branch hours as needed for Abdominal pain. ondansetron 0 Yes [id number] 4mg Take 1 [facility] (ZOFRAN) 4 4-18 tablet by [facility] of mg tablet 00:00: mouth [place] 00 every 8 Medical (eight) Branch hours as needed for Nausea and Vomiting (N/V). pantoprazol 2020-0 Yes [id number] 40mg Take 1 [facility] e 4-18 tablet by [facility] of (PROTONIX) 00:00: mouth [place] 40 mg EC 00 daily. Medical tablet Branch dicyclomine 0 Yes [id number] 20mg Take 1 [facility] 20 mg 4-18 tablet by [facility] of tablet 00:00: mouth [place] 00 every 6 Medical (six) Branch hours as needed for Abdominal pain. ondansetron 0 Yes [id number] 4mg Take 1 [facility] (ZOFRAN) 4 4-18 tablet by [facility] of mg tablet 00:00: mouth [place] 00 every 8 Medical (eight) Branch hours as needed for Nausea and Vomiting (N/V). pantoprazol 2020-0 Yes [id number] 40mg Take 1 [facility] e 4-18 tablet by [facility] of (PROTONIX) 00:00: mouth [place] 40 mg EC 00 daily. Medical tablet Branch dicyclomine 0 Yes [id number] 20mg Take 1 [facility] 20 mg 4-18 tablet by [facility] of tablet 00:00: mouth [place] 00 every 6 Medical (six) Branch hours as needed for Abdominal pain. ondansetron 2020-0 Yes [id number] 4mg Take 1 [facility] (ZOFRAN) 4 4-18 [...] 00 DAILY UNTIL FINISHED. nystatin 2020-0 Yes [id number] Apply to [facility] 100,000 2-05 affected [facility] of unit/gram 00:00: area(s) 3 [facility] as ointment 00 (three) Medical times Branch daily. nystatin 2020-0 Yes [id number] Apply to [facility] 100,000 2-05 affected [facility] of unit/gram 00:00: area(s) 3 [facility] ointment 00 (three) Medical times Branch daily. nystatin 2020-0 Yes [id number] Apply to [facility] 100,000 2-05 affected [facility] of unit/gram 00:00: area(s) 3 [facility] ointment 00 (three) Medical times Branch daily. nystatin 2020-0 Yes [id number] Apply to [facility] 100,000 2-05 affected [facility] of unit/gram 00:00: area(s) 3 [facility] ointment 00 (three) Medical times Branch daily. nystatin 2020-0 Yes [id number] Apply to [facility] 100,000 2-05 affected [facility] of unit/gram 00:00: area(s) 3 [facility] ointment 00 (three) Medical times Branch daily. nystatin 2020-0 Yes [id number] Apply to [facility] 100,000 2-05 affected [facility]y of unit/gram 00:00: area(s) 3 [facility] ointment 00 (three) Medical times Branch daily. nystatin 2020-0 Yes [id number] Apply to [facility] 100,000 2-05 affected [facility] of unit/gram 00:00: area(s) 3 [facility] ointment 00 (three) Medical times Branch daily. nystatin 2020-0 Yes [id number] Apply to [facility] 100,000 2-05 affected [facility]y of unit/gram 00:00: area(s) 3 [facility] ointment 00 (three) Medical times Branch daily. nystatin 2020-0 Yes [id number] Apply to [facility] 100,000 2-05 affected [facility]y of unit/gram 00:00: area(s) 3 [facility] ointment 00 (three) Medical times Branch daily. nystatin 2020-0 Yes [id number] Apply to [facility] 100,000 2-05 affected [facility]y of unit/gram 00:00: area(s) 3 [facility] ointment 00 (three) Medical times Branch daily. nystatin 2020-0 Yes [id number] Apply to [facility] 100,000 2-05 affected [facility]y of unit/gram 00:00: area(s) 3 [facility] ointment 00 (three) Medical times Branch daily. nystatin 2020-0 Yes [id number] Apply to [facility] 100,000 2-05 affected [facility]y of unit/gram 00:00: area(s) 3 [facility] ointment 00 (three) Medical times Branch daily. nystatin 2020-0 Yes [id number] Apply to [facility] 100,000 2-05 affected [facility]y of unit/gram 00:00: area(s) 3 [facility] ointment 00 (three) Medical times Branch daily. nystatin 2020-0 Yes [id number] Apply to [facility] 100,000 2-05 affected [facility]y of unit/gram 00:00: area(s) 3 [facility] ointment 00 (three) Medical times Branch daily. nystatin 2020-0 Yes [id number] Apply to [facility] 100,000 2-05 affected [facility]y of unit/gram 00:00: area(s) 3 [facility] ointment 00 (three) Medical times Branch daily. nystatin 2020-0 Yes [id number] Apply to [facility] 100,000 2-05 affected [facility]y of unit/gram 00:00: area(s) 3 [facility] ointment 00 (three) Medical times Branch daily. nystatin 2020-0 Yes [id number] Apply to [facility] 100,000 2-05 affected [facility] of unit/gram 00:00: area(s) 3 [facility] ointment 00 (three) Medical times Branch daily. nystatin 2020-0 Yes [id number] Apply to [facility] 100,000 2-05 affected [facility]y of unit/gram 00:00: area(s) 3 [facility] ointment 00 (three) Medical times Branch daily. nystatin 2020-0 Yes [id number] Apply to [facility] 100,000 2-05 affected [facility] of unit/gram 00:00: area(s) 3 [facility] ointment 00 (three) Medical times Branch daily. nystatin 2020-0 Yes [id number] Apply to [facility] 100,000 2-05 affected [facility] of unit/gram 00:00: area(s) 3 [facility] ointment 00 (three) Medical times Branch daily. nystatin 2020-0 Yes [id number] Apply to [facility] 100,000 2-05 affected [facility] of unit/gram 00:00: area(s) 3 [facility] ointment 00 (three) Medical times Branch daily. nystatin 2020-0 Yes [id number] Apply to [facility] 100,000 2-05 affected [facility]y of unit/gram 00:00: area(s) 3 [facility] ointment 00 (three) Medical times Branch daily. nystatin 2020-0 Yes [id number] Apply to [facility] 100,000 2-05 affected [facility]y of unit/gram 00:00: area(s) 3 [facility] ointment 00 (three) Medical times Branch daily. nystatin 2020-0 Yes [id number] Apply to [facility] 100,000 2-05 affected [facility] of unit/gram 00:00: area(s) 3 [facility] ointment 00 (three) Medical times Branch daily. nystatin 2020-0 Yes [id number] Apply to [facility] 100,000 2-05 affected [facility] of unit/gram 00:00: area(s) 3 [facility] ointment 00 (three) Medical times Branch daily. nystatin 2020-0 Yes [id number] Apply to [facility] 100,000 2-05 affected [facility] of unit/gram 00:00: area(s) 3 [facility] ointment 00 (three) Medical times Branch daily. nystatin 2020-0 Yes [id number] Apply to [facility] 100,000 2-05 affected [facility] of unit/gram 00:00: area(s) 3 [facility] ointment 00 (three) Medical times Branch daily. nystatin 2020-0 Yes [id number] Apply to [facility] 100,000 2-05 affected [facility] of unit/gram 00:00: area(s) 3 [facility] ointment 00 (three) Medical times Branch daily. nystatin 2020-0 Yes [id number] Apply to [facility] 100,000 2-05 affected [facility] of unit/gram 00:00: area(s) 3 [facility] ointment 00 (three) Medical times Branch daily. nystatin 2020-0 Yes [id number] Apply to [facility] 100,000 2-05 affected [facility] of unit/gram 00:00: area(s) 3 [facility] ointment 00 (three) Medical times Branch daily. nystatin 2020-0 Yes [id number] Apply to [facility] 100,000 2-05 affected [facility]y of unit/gram 00:00: area(s) 3 [facility] ointment 00 (three) Medical times Branch daily. nystatin 2020-0 Yes [id number] Apply to [facility] 100,000 2-05 affected [facility]y of unit/gram 00:00: area(s) 3 [facility] ointment 00 (three) Medical times Branch daily. nystatin 2020-0 Yes [id number] Apply to [facility] 100,000 2-05 affected [facility]y of unit/gram 00:00: area(s) 3 [facility] ointment 00 (three) Medical times Branch daily. nystatin 2020-0 Yes [id number] Apply to [facility] 100,000 2-05 affected [facility]y of unit/gram 00:00: area(s) 3 [facility] ointment 00 (three) Medical times Branch daily. nystatin 2020-0 Yes [id number] Apply to [facility] 100,000 2-05 affected [facility]y of unit/gram 00:00: area(s) 3 [facility] ointment 00 (three) Medical times Branch daily. nystatin 2020-0 Yes [id number] Apply to [facility] 100,000 2-05 affected [facility]y of unit/gram 00:00: area(s) 3 [facility] ointment 00 (three) Medical times Branch daily. nystatin 2020-0 Yes [id number] Apply to [facility] 100,000 2-05 affected [facility]y of unit/gram 00:00: area(s) 3 [facility] ointment 00 (three) Medical times Branch daily. nystatin 2020-0 Yes [id number] Apply to [facility] 100,000 2-05 affected [facility]y of unit/gram 00:00: area(s) 3 [facility] ointment 00 (three) Medical times Branch daily. nystatin 2020-0 Yes [id number] Apply to [facility] 100,000 2-05 affected [facility]y of unit/gram 00:00: area(s) 3 [facility] ointment 00 (three) Medical times Branch daily. nystatin 2020-0 Yes [id number] Apply to [facility] 100,000 2-05 affected [facility]y of unit/gram 00:00: area(s) 3 [facility] ointment 00 (three) Medical times Branch daily. nystatin 2020-0 Yes [id number] Apply to [facility] 100,000 2-05 affected [facility]y of unit/gram 00:00: area(s) 3 [facility] ointment 00 (three) Medical times Branch daily. nystatin 2020-0 Yes [id number] Apply to [facility] 100,000 2-05 affected [facility]y of unit/gram 00:00: area(s) 3 [facility] ointment 00 (three) Medical times Branch daily. nystatin 2020-0 Yes [id number] Apply to [facility] 100,000 2-05 affected [facility]y of unit/gram 00:00: area(s) 3 [facility] ointment 00 (three) Medical times Branch daily. nystatin 2020-0 Yes [id number] Apply to [facility] 100,000 2-05 affected [facility]y of unit/gram 00:00: area(s) 3 [facility] ointment 00 (three) Medical times Branch daily. nystatin 2020-0 Yes [id number] Apply to [facility] 100,000 2-05 affected ity of unit/gram 00:00: area(s) 3 [facility] as ointment 00 (three) Medical times Branch daily. nystatin 2020-0 Yes [id number] Apply to [facility] 100,000 2-05 affected [facility]y of unit/gram 00:00: area(s) 3 [facility] ointment 00 (three) Medical times Branch daily. nystatin 2020-0 Yes [id number] Apply to [facility] 100,000 2-05 affected ity [...] Tablet Tablet 00 DIRECTED. medroxyPROG 2019-0 Yes [id number] 150mg [facility] ESTERone 5-14 ity of (DEPO-PROVE 18:30: [place] [facility]) 00 Medical injection Branch 150 mg medroxyPROG 2019-0 Yes [id number] 150mg [facility] ESTERone 5-14 ity of (DEPO-PROVE 18:30: [place] [facility]) 00 Medical injection Branch 150 mg medroxyPROG 2019-0 Yes [id number] 150mg [facility] ESTERone 5-14 ity of (DEPO-PROVE 18:30: [place] [facility]) 00 Medical injection Branch 150 mg medroxyPROG 2019-0 Yes [id number] 150mg [facility] ESTERone 5-14 ity of (DEPO-PROVE 18:30: [place] [facility]) 00 Medical injection Branch 150 mg medroxyPROG 2019-0 Yes [id number] 150mg [facility] ESTERone 5-14 ity of (DEPO-PROVE 18:30: [place] [facility]) 00 Medical injection Branch 150 mg medroxyPROG 2019-0 Yes [id number] 150mg [facility] ESTERone 5-14 ity of (DEPO-PROVE 18:30: [place] [facility]) 00 Medical injection Branch 150 mg medroxyPROG 2019-0 Yes [id number] 150mg [facility] ESTERone 5-14 ity of (DEPO-PROVE 18:30: [place] [facility]) 00 Medical injection Branch 150 mg medroxyPROG 2019-0 Yes [id number] 150mg [facility] ESTERone 5-14 ity of (DEPO-PROVE 18:30: [place] [facility]) 00 Medical injection Branch 150 mg medroxyPROG 2019-0 Yes [id number] 150mg [facility] ESTERone 5-14 ity of (DEPO-PROVE 18:30: [place] [facility]) 00 Medical injection Branch 150 mg medroxyPROG 2019-0 Yes [id number] 150mg [facility] ESTERone 5-14 ity of (DEPO-PROVE 18:30: [place] [facility]) 00 Medical injection Branch 150 mg medroxyPROG 2019-0 Yes [id number] 150mg [facility] ESTERone 5-14 ity of (DEPO-PROVE 18:30: [place] [facility]) 00 Medical injection Branch 150 mg medroxyPROG 2019-0 Yes [id number] 150mg [facility] ESTERone 5-14 ity of (DEPO-PROVE 18:30: [place] [facility]) 00 Medical injection Branch 150 mg medroxyPROG 2019-0 Yes [id number] 150mg [facility] ESTERone 5-14 ity of (DEPO-PROVE 18:30: [place] [facility]) 00 Medical injection Branch 150 mg medroxyPROG 2019-0 Yes [id number] 150mg [facility] ESTERone 5-14 ity of (DEPO-PROVE 18:30: [place] [facility]) 00 Medical injection Branch 150 mg medroxyPROG 2019-0 Yes [id number] 150mg [facility] ESTERone 5-14 ity of (DEPO-PROVE 18:30: [place] [facility]) 00 Medical injection Branch 150 mg medroxyPROG 2019-0 Yes [id number] 150mg [facility] ESTERone 5-14 ity of (DEPO-PROVE 18:30: [place] [facility]) 00 Medical injection Branch 150 mg medroxyPROG 2019-0 Yes [id number] 150mg [facility] ESTERone 5-14 ity of (DEPO-PROVE 18:30: [place] [facility]) 00 Medical injection Branch 150 mg medroxyPROG 2019-0 Yes [id number] 150mg [facility] ESTERone 5-14 ity of (DEPO-PROVE 18:30: [place] [facility]) 00 Medical injection Branch 150 mg medroxyPROG 2019-0 Yes [id number] 150mg [facility] ESTERone 5-14 ity of (DEPO-PROVE 18:30: [place] [facility]) 00 Medical injection Branch 150 mg medroxyPROG 2019-0 Yes [id number] 150mg [facility] ESTERone 5-14 ity of (DEPO-PROVE 18:30: [place] [facility]) 00 [facility] injection [facility] 150 mg medroxyPROG 2019-0 Yes [id number] 150mg [facility] ESTERone 5-14 ity of (DEPO-PROVE 18:30: [place] [facility]) 00 Medical injection Branch 150 mg medroxyPROG 2019-0 Yes [id number] 150mg [facility] ESTERone 5-14 ity of (DEPO-PROVE 18:30: [place] [facility]) 00 Medical injection Branch 150 mg medroxyPROG 2019-0 Yes [id number] 150mg [facility] ESTERone 5-14 ity of (DEPO-PROVE 18:30: [place] [facility]) 00 Medical injection Branch 150 mg medroxyPROG 2019-0 Yes [id number] 150mg [facility] ESTERone 5-14 ity of (DEPO-PROVE 18:30: [place] [facility]) 00 Medical injection Branch 150 mg medroxyPROG 2019-0 Yes [id number] 150mg [facility] ESTERone 5-14 ity of (DEPO-PROVE 18:30: [place] [facility]) 00 Medical injection Branch 150 mg medroxyPROG 2019-0 Yes [id number] 150mg [facility] ESTERone 5-14 ity of (DEPO-PROVE 18:30: [place] [facility]) 00 Medical injection Branch 150 mg medroxyPROG 2019-0 Yes [id number] 150mg [facility] ESTERone 5-14 ity of (DEPO-PROVE 18:30: [place] [facility]) 00 Medical injection Branch 150 mg medroxyPROG 2019-0 Yes [id number] 150mg [facility] ESTERone 5-14 ity of (DEPO-PROVE 18:30: [place] [facility]) 00 Medical injection Branch 150 mg medroxyPROG 2019-0 Yes [id number] 150mg [facility] ESTERone 5-14 ity of (DEPO-PROVE 18:30: [place] [facility]) 00 Medical injection Branch 150 mg medroxyPROG 2019-0 Yes [id number] 150mg [facility] ESTERone 5-14 ity of (DEPO-PROVE 18:30: [place] [facility]) 00 Medical injection Branch 150 mg medroxyPROG 2019-0 Yes [id number] 150mg [facility] ESTERone 5-14 ity of (DEPO-PROVE 18:30: [place] [facility]) 00 Medical injection Branch 150 mg medroxyPROG 2019-0 Yes [id number] 150mg [facility] ESTERone 5-14 ity of (DEPO-PROVE 18:30: [place] [facility]) 00 Medical injection Branch 150 mg medroxyPROG 2019-0 Yes [id number] 150mg [facility] ESTERone 5-14 ity of (DEPO-PROVE 18:30: [place] [facility]) 00 Medical injection Branch 150 mg medroxyPROG 2019-0 Yes [id number] 150mg [facility] ESTERone 5-14 ity of (DEPO-PROVE 18:30: [place] [facility]) 00 Medical injection Branch 150 mg medroxyPROG 2019-0 Yes [id number] 150mg [facility] ESTERone 5-14 ity of (DEPO-PROVE 18:30: [place] [facility]) 00 Medical injection Branch 150 mg medroxyPROG 2019-0 Yes [id number] 150mg [facility] ESTERone 5-14 ity of (DEPO-PROVE 18:30: [place] [facility]) 00 Medical injection Branch 150 mg medroxyPROG 2019-0 Yes [id number] 150mg [facility] ESTERone 5-14 ity of (DEPO-PROVE 18:30: [place] [facility]) 00 Medical injection Branch 150 mg medroxyPROG 2019-0 Yes [id number] 150mg [facility] ESTERone 5-14 ity of (DEPO-PROVE 18:30: [place] [facility]) 00 Medical injection Branch 150 mg medroxyPROG 2019-0 Yes [id number] 150mg [facility] ESTERone 5-14 ity of (DEPO-PROVE 18:30: [place] [facility]) 00 Medical injection Branch 150 mg medroxyPROG 2019-0 Yes [id number] 150mg [facility] ESTERone 5-14 ity of (DEPO-PROVE 18:30: [place] [facility]) 00 Medical injection Branch 150 mg medroxyPROG 2019-0 Yes [id number] 150mg [facility] ESTERone 5-14 ity of (DEPO-PROVE 18:30: [place] [facility]) 00 Medical injection Branch 150 mg medroxyPROG 2019-0 Yes [id number] 150mg [facility] ESTERone 5-14 ity of (DEPO-PROVE 18:30: [place] [facility]) 00 Medical injection Branch 150 mg medroxyPROG 2019-0 Yes [id number] 150mg [facility] ESTERone 5-14 ity of (DEPO-PROVE 18:30: [place] [facility]) 00 Medical injection Branch 150 mg medroxyPROG 2019-0 Yes [id number] 150mg [facility] ESTERone 5-14 ity of (DEPO-PROVE 18:30: [place] [facility]) 00 Medical injection Branch 150 mg medroxyPROG 2019-0 Yes [id number] 150mg [facility] ESTERone 5-14 ity of (DEPO-PROVE 18:30: [place] [facility]) 00 Medical injection Branch 150 mg medroxyPROG 2019-0 Yes [id number] 150mg [facility] ESTERone 5-14 ity of (DEPO-PROVE 18:30: [place] [facility]) 00 Medical injection Branch 150 mg medroxyPROG 2019-0 Yes [id number] 150mg [facility] ESTERone 5-14 ity of (DEPO-PROVE [...] Meth odist VACCINATION 00:00:00 Hospital SARS-COV-2 COVID-19 2021-08-06 Completed Unive rsity of PFIZER VACCINE 00:00:00 [facility] SARS-COV-2 COVID-19 2021-08-06 Completed Unive rsity of PFIZER VACCINE 00:00:00 [facility] SARS-COV-2 COVID-19 2021-08-06 Completed Unive rsity of PFIZER VACCINE 00:00:00 [facility] SARS-COV-2 COVID-19 2021-08-06 Completed Unive rsity of PFIZER VACCINE 00:00:00 [facility] SARS-COV-2 COVID-19 2021-08-06 Completed Unive rsity of PFIZER VACCINE 00:00:00 [facility] SARS-COV-2 COVID-19 2021-08-06 Completed Unive rsity of PFIZER VACCINE 00:00:00 [facility] SARS-COV-2 COVID-19 2021-08-06 Completed Unive rsity of PFIZER VACCINE 00:00:00 [facility] SARS-COV-2 COVID-19 2021-08-06 Completed Unive rsity of PFIZER VACCINE 00:00:00 [facility] SARS-COV-2 COVID-19 2021-08-06 Completed Unive rsity of PFIZER VACCINE 00:00:00 [facility] SARS-COV-2 COVID-19 2021-08-06 Completed Unive rsity of PFIZER VACCINE 00:00:00 [facility] SARS-COV-2 COVID-19 2021-08-06 Completed Unive rsity of PFIZER VACCINE 00:00:00 [facility] SARS-COV-2 COVID-19 2021-08-06 Completed Unive rsity of PFIZER VACCINE 00:00:00 [facility] SARS-COV-2 COVID-19 2021-08-06 Completed Unive rsity of PFIZER VACCINE 00:00:00 [facility] SARS-COV-2 COVID-19 2021-08-06 Completed Unive rsity of PFIZER VACCINE 00:00:00 [facility] SARS-COV-2 COVID-19 2021-08-06 Completed Unive rsity of PFIZER VACCINE 00:00:00 [facility] SARS-COV-2 COVID-19 2021-08-06 Completed Unive rsity of PFIZER VACCINE 00:00:00 [facility] SARS-COV-2 COVID-19 2021-08-06 Completed Unive rsity of PFIZER VACCINE 00:00:00 [facility] SARS-COV-2 COVID-19 2021-08-06 Completed Unive rsity of PFIZER VACCINE 00:00:00 [facility] SARS-COV-2 COVID-19 2021-08-06 Completed Unive rsity of PFIZER VACCINE 00:00:00 [facility] SARS-COV-2 COVID-19 2021-08-06 Completed Unive rsity of PFIZER VACCINE 00:00:00 [facility] SARS-COV-2 COVID-19 2021-08-06 Completed Unive rsity of PFIZER VACCINE 00:00:00 [facility] SARS-COV-2 COVID-19 2021-08-06 Completed Unive rsity of PFIZER VACCINE 00:00:00 [facility] SARS-COV-2 COVID-19 2021-08-06 Completed Unive rsity of PFIZER VACCINE 00:00:00 [facility] SARS-COV-2 COVID-19 2021-08-06 Completed Unive rsity of PFIZER VACCINE 00:00:00 [facility] PFIZER COVID-19 MRNA 2021-08-06 Completed Meth odist VACCINATION 00:00:00 Hospital PFIZER COVID-19 MRNA 2021-07-09 Completed Meth odist VACCINATION 00:00:00 Hospital PFIZER COVID-19 MRNA 2021-07-09 Completed Meth odist VACCINATION 00:00:00 Hospital PFIZER COVID-19 MRNA 2021-07-09 Completed Meth odist VACCINATION 00:00:00 Hospital PFIZER COVID-19 MRNA 2021-07-09 Completed Meth odist VACCINATION 00:00:00 Hospital SARS-COV-2 COVID-19 2021-07-09 Completed Unive rsity of PFIZER VACCINE 00:00:00 [facility] Influenza Virus 2021-07-09 Completed Universit y of Vaccine Quad .5 mL IM 00:00:00 [facility] 6+ MO Branch SARS-COV-2 COVID-19 2021-07-09 Completed Unive rsity of PFIZER VACCINE 00:00:00 [facility] PFIZER COVID-19 MRNA 2021-07-09 Completed Meth odist VACCINATION 00:00:00 Hospital Influenza Virus 2021-07-09 Completed Universit y of Vaccine Quad .5 mL IM 00:00:00 [facility] 6[facility] SARS-COV-2 COVID-19 2021-07-09 Completed Unive rsity of PFIZER VACCINE 00:00:00 [facility] Influenza Virus 2021-07-09 Completed Universit y of Vaccine Quad .5 mL IM 00:00:00 [facility] 6[facility] MO Branch SARS-COV-2 COVID-19 2021-07-09 Completed Unive rsity of PFIZER VACCINE 00:00:00 [facility] Influenza Virus 2021-07-09 Completed Universit y of Vaccine Quad .5 mL IM 00:00:00 [facility] 6[facility] MO Branch SARS-COV-2 COVID-19 2021-07-09 Completed Unive rsity of PFIZER VACCINE 00:00:00 [facility] Influenza Virus 2021-07-09 Completed Universit y of Vaccine Quad .5 mL IM 00:00:00 [facility] 6[facility] MO Branch SARS-COV-2 COVID-19 2021-07-09 Completed Unive rsity of PFIZER VACCINE 00:00:00 [facility] Influenza Virus 2021-07-09 Completed Universit y of Vaccine Quad .5 mL IM 00:00:00 [facility] 6[facility] MO Branch SARS-COV-2 COVID-19 2021-07-09 Completed Unive rsity of PFIZER VACCINE 00:00:00 [facility] PFIZER COVID-19 MRNA 2021-07-09 Completed Meth odist VACCINATION 00:00:00 Hospital Influenza Virus 2021-07-09 Completed Universit y of Vaccine Quad .5 mL IM 00:00:00 [facility] 6[facility] MO Branch SARS-COV-2 COVID-19 2021-07-09 Completed Unive rsity of PFIZER VACCINE 00:00:00 [facility] Influenza Virus 2021-07-09 Completed Universit y of Vaccine Quad .5 mL IM 00:00:00 [facility] 6[facility] MO Branch SARS-COV-2 COVID-19 2021-07-09 Completed Unive rsity of PFIZER VACCINE 00:00:00 [facility] Influenza Virus 2021-07-09 Completed Universit y of Vaccine Quad .5 mL IM 00:00:00 [facility] 6[facility] Branch SARS-COV-2 COVID-19 2021-07-09 Completed Unive rsity of PFIZER VACCINE 00:00:00 [facility] Influenza Virus 2021-07-09 Completed Universit y of Vaccine Quad .5 mL IM 00:00:00 [facility] 6[facility] Branch SARS-COV-2 COVID-19 2021-07-09 Completed Unive rsity of PFIZER VACCINE 00:00:00 [facility] Influenza Virus 2021-07-09 Completed Universit y of Vaccine Quad .5 mL IM 00:00:00 [facility] 6[facility] Branch SARS-COV-2 COVID-19 2021-07-09 Completed Unive rsity of PFIZER VACCINE 00:00:00 [facility] Influenza Virus 2021-07-09 Completed Universit y of Vaccine Quad .5 mL IM 00:00:00 [facility] 6[facility] Branch SARS-COV-2 COVID-19 2021-07-09 Completed Unive rsity of PFIZER VACCINE 00:00:00 [facility] Influenza Virus 2021-07-09 Completed Universit y of Vaccine Quad .5 mL IM 00:00:00 [facility] 6[facility] MO Branch SARS-COV-2 COVID-19 2021-07-09 Completed Unive rsity of PFIZER VACCINE 00:00:00 [facility] Influenza Virus 2021-07-09 Completed Universit y of Vaccine Quad .5 mL IM 00:00:00 [facility] 6[facility] MO Branch SARS-COV-2 COVID-19 2021-07-09 Completed Unive rsity of PFIZER VACCINE 00:00:00 [facility] Influenza Virus 2021-07-09 Completed Universit y of Vaccine Quad .5 mL IM 00:00:00 [facility] 6[facility] MO Branch SARS-COV-2 COVID-19 2021-07-09 Completed Unive rsity of PFIZER VACCINE 00:00:00 [facility] Influenza Virus 2021-07-09 Completed Universit y of Vaccine Quad .5 mL IM 00:00:00 [facility] 6[facility] MO Branch SARS-COV-2 COVID-19 2021-07-09 Completed Unive rsity of PFIZER VACCINE 00:00:00 [facility] Influenza Virus 2021-07-09 Completed Universit y of Vaccine Quad .5 mL IM 00:00:00 [facility] 6[facility] MO Branch SARS-COV-2 COVID-19 2021-07-09 Completed Unive rsity of PFIZER VACCINE 00:00:00 [facility] Influenza Virus 2021-07-09 Completed Universit y of Vaccine Quad .5 mL IM 00:00:00 [facility] 6[facility] MO Branch SARS-COV-2 COVID-19 2021-07-09 Completed Unive rsity of PFIZER VACCINE 00:00:00 [facility] Influenza Virus 2021-07-09 Completed Universit y of Vaccine Quad .5 mL IM 00:00:00 [facility] 6[facility] MO Branch SARS-COV-2 COVID-19 2021-07-09 Completed Unive rsity of PFIZER VACCINE 00:00:00 [facility] Influenza Virus 2021-07-09 Completed Universit y of Vaccine Quad .5 mL IM 00:00:00 [facility] 6[facility] MO Branch SARS-COV-2 COVID-19 2021-07-09 Completed Unive rsity of PFIZER VACCINE 00:00:00 [facility] Influenza Virus 2021-07-09 Completed Universit y of Vaccine Quad .5 mL IM 00:00:00 [facility] 6[facility] MO Branch SARS-COV-2 COVID-19 2021-07-09 Completed Unive rsity of PFIZER VACCINE 00:00:00 [facility] Influenza Virus 2021-07-09 Completed Universit y of Vaccine Quad .5 mL IM 00:00:00 [facility] 6[facility] MO Branch SARS-COV-2 COVID-19 2021-07-09 Completed Unive rsity of PFIZER VACCINE 00:00:00 [facility] Influenza Virus 2021-07-09 Completed Universit y of Vaccine Quad .5 mL IM 00:00:00 [facility] 6[facility] MO Branch SARS-COV-2 COVID-19 2021-07-09 Completed Unive rsity of PFIZER VACCINE 00:00:00 [facility] Influenza Virus 2021-07-09 Completed Universit y of Vaccine Quad .5 mL IM 00:00:00 [facility] as Medical 6+ MO Branch PFIZER COVID-19 MRNA 2021-07-09 Completed Meth odist VACCINATION 00:00:00 [facility] Tetanus/Diptheria 2016-08-11 Completed Univers ity of 00:00:00 [facility] Varicella 2016-08-11 Completed University of (varivax)(chicken 00:00:00 [place] [facility] pox) Branch Tetanus/Diptheria 2016-08-11 Completed Univers ity of 00:00:00 [facility] Varicella 2016-08-11 Completed University of (varivax)(chicken 00:00:00 [facility] edical pox) Branch Tetanus/Diptheria 2016-08-11 Completed Univers ity of 00:00:00 [facility] Varicella 2016-08-11 Completed University of (varivax)(chicken 00:00:00 [place] edical pox) Branch Tetanus/Diptheria 2016-08-11 Completed Univers ity of 00:00:00 [facility] Varicella 2016-08-11 Completed University of (varivax)(chicken 00:00:00 [place] edical pox) Branch Tetanus/Diptheria 2016-08-11 Completed Univers ity of 00:00:00 [facility] Varicella 2016-08-11 Completed University of (varivax)(chicken 00:00:00 [place] [facility] ed[facility] pox) Branch Tetanus/Diptheria 2016-08-11 Completed Univers ity of 00:00:00 [facility] Varicella 2016-08-11 Completed University of (varivax)(chicken 00:00:00 [place] [facility] ed[facility] pox) Branch Tetanus/Diptheria 2016-08-11 Completed Univers ity of 00:00:00 [facility] Varicella 2016-08-11 Completed University of (varivax)(chicken 00:00:00 [place] [facility] ed[facility] pox) Branch Tetanus/Diptheria 2016-08-11 Completed Univers ity of 00:00:00 [facility] Varicella 2016-08-11 Completed University of (varivax)(chicken 00:00:00 [place] [facility] ed[facility] pox) Branch Tetanus/Diptheria 2016-08-11 Completed Univers ity of 00:00:00 [facility] Varicella 2016-08-11 Completed University of (varivax)(chicken 00:00:00 [place] [facility] ed[facility] pox) Branch Tetanus/Diptheria 2016-08-11 Completed Univers ity of 00:00:00 [facility] Varicella 2016-08-11 Completed University of (varivax)(chicken 00:00:00 [place] [facility] pox) Branch Tetanus/Diptheria 2016-08-11 Completed Univers ity of 00:00:00 [facility] Varicella 2016-08-11 Completed University of (varivax)(chicken 00:00:00 [place] [facility] pox) Branch Tetanus/Diptheria 2016-08-11 Completed Univers ity of 00:00:00 [facility] Varicella 2016-08-11 Completed University of (varivax)(chicken 00:00:00 [place] [facility] ed[facility] pox) Branch Tetanus/Diptheria 2016-08-11 Completed Univers ity of 00:00:00 [facility] Varicella 2016-08-11 Completed University of (varivax)(chicken 00:00:00 [place] [facility] pox) Branch Tetanus/Diptheria 2016-08-11 Completed Univers ity of 00:00:00 [facility] Varicella 2016-08-11 Completed University of (varivax)(chicken 00:00:00 [place] [facility] pox) Branch Tetanus/Diptheria 2016-08-11 Completed Univers ity of 00:00:00 [facility] Varicella 2016-08-11 Completed University of (varivax)(chicken 00:00:00 [place] [facility] pox) Branch Tetanus/Diptheria 2016-08-11 Completed Univers ity of 00:00:00 [facility] Varicella 2016-08-11 Completed University of (varivax)(chicken 00:00:00 [place] [facility] ed[facility] pox) Branch Tetanus/Diptheria 2016-08-11 Completed Univers ity of 00:00:00 [facility] Varicella 2016-08-11 Completed University of (varivax)(chicken 00:00:00 [place] [facility] ed[facility] pox) Branch Tetanus/Diptheria 2016-08-11 Completed Univers ity of 00:00:00 [facility] Varicella 2016-08-11 Completed University of (varivax)(chicken 00:00:00 [place] [facility] pox) Branch Tetanus/Diptheria 2016-08-11 Completed Univers ity of 00:00:00 [facility] Varicella 2016-08-11 Completed University of (varivax)(chicken 00:00:00 [place] [facility] pox) Branch Tetanus/Diptheria 2016-08-11 Completed Univers ity of 00:00:00 [facility] Varicella 2016-08-11 Completed University of (varivax)(chicken 00:00:00 [place] [facility] pox) Branch Tetanus/Diptheria 2016-08-11 Completed Univers ity of 00:00:00 [facility] Varicella 2016-08-11 Completed University of (varivax)(chicken 00:00:00 [place] [facility] pox) Branch Tetanus/Diptheria 2016-08-11 Completed Univers ity of 00:00:00 [facility] Varicella 2016-08-11 Completed University of (varivax)(chicken 00:00:00 [place] [facility] ed[facility] pox) Branch Tetanus/Diptheria 2016-08-11 Completed Univers ity of 00:00:00 [facility] Varicella 2016-08-11 Completed University of (varivax)(chicken 00:00:00 [place] [facility] ed[facility] pox) Branch Tetanus/Diptheria 2016-08-11 Completed Univers ity of 00:00:00 [facility] Varicella 2016-08-11 Completed University of [...] HEPATITIS A 2008-09-27 Completed University of 00:00:00 [facility] HPV 2008-09-27 Completed University of 00:00:00 [facility] HEPATITIS A 2008-09-27 Completed University of 00:00:00 [...] Branch HPV 2008-03-06 Completed University of 00:00:00 [facility] HEPATITIS A 2008-03-06 Completed University of 00:00:00 [facility] HPV 2008-03-06 Completed University of 00:00:00 [facility] Meningococcal 2007-12-29 Completed University of Polysaccharide 00:00:00 [place] [facility] (groups A, C, Y and Branc h W-135) conjugate vaccine (MCV4P) TDAP 2007-12-29 Completed University of 00:00:00 [facility] Meningococcal 2007-12-29 Completed University of Polysaccharide 00:00:00 [place] [facility] (groups A, C, Y and Branc h W-135) conjugate vaccine (MCV4P) TDAP 2007-12-29 Completed University of 00:00:00 [facility] Meningococcal 2007-12-29 Completed University of Polysaccharide 00:00:00 [place] [facility] (groups A, C, Y and Branc h W-135) conjugate vaccine (MCV4P) TDAP 2007-12-29 Completed University of 00:00:00 [facility] Meningococcal 2007-12-29 Completed University of Polysaccharide 00:00:00 [place] [facility] (groups A, C, Y and Branc h W-135) conjugate vaccine (MCV4P) TDAP 2007-12-29 Completed University of 00:00:00 [facility] Meningococcal 2007-12-29 Completed University of Polysaccharide 00:00:00 [place] [facility] (groups A, C, Y and Branc h W-135) conjugate vaccine (MCV4P) TDAP 2007-12-29 Completed University of 00:00:00 [facility] Meningococcal 2007-12-29 Completed University of Polysaccharide 00:00:00 [place] [facility] (groups A, C, Y and Branc h W-135) conjugate vaccine (MCV4P) TDAP 2007-12-29 Completed University of 00:00:00 [facility] Meningococcal 2007-12-29 Completed University of Polysaccharide 00:00:00 [place] [facility] (groups A, C, Y and Branc h W-135) conjugate vaccine (MCV4P) TDAP 2007-12-29 Completed University of 00:00:00 [facility] Meningococcal 2007-12-29 Completed University of Polysaccharide 00:00:00 [place] [facility] (groups A, C, Y and Branc h W-135) conjugate vaccine (MCV4P) TDAP 2007-12-29 Completed University of 00:00:00 [facility] Meningococcal 2007-12-29 Completed University of Polysaccharide 00:00:00 [place] [facility] (groups A, C, Y and Branc h W-135) conjugate vaccine (MCV4P) TDAP 2007-12-29 Completed University of 00:00:00 [facility] Meningococcal 2007-12-29 Completed University of Polysaccharide 00:00:00 [place] [facility] (groups A, C, Y and Branc h W-135) conjugate vaccine (MCV4P) TDAP 2007-12-29 Completed University of 00:00:00 [facility] Meningococcal 2007-12-29 Completed University of Polysaccharide 00:00:00 [place] [facility] (groups A, C, Y and Branc h W-135) conjugate vaccine (MCV4P) TDAP 2007-12-29 Completed University of 00:00:00 [facility] Meningococcal 2007-12-29 Completed University of Polysaccharide 00:00:00 [place] [facility] (groups A, C, Y and Branc h W-135) conjugate vaccine (MCV4P) TDAP 2007-12-29 Completed University of 00:00:00 [facility] Meningococcal 2007-12-29 Completed University of Polysaccharide 00:00:00 [place] [facility] (groups A, C, Y and Branc h W-135) conjugate vaccine (MCV4P) TDAP 2007-12-29 Completed University of 00:00:00 [facility] Meningococcal 2007-12-29 Completed University of Polysaccharide 00:00:00 [place] [facility] (groups A, C, Y and Branc h W-135) conjugate vaccine (MCV4P) TDAP 2007-12-29 Completed University of 00:00:00 [facility] Meningococcal 2007-12-29 Completed University of Polysaccharide 00:00:00 [place] [facility] (groups A, C, Y and Branc h W-135) conjugate vaccine (MCV4P) TDAP 2007-12-29 Completed University of 00:00:00 [facility] Meningococcal 2007-12-29 Completed University of Polysaccharide 00:00:00 [place] [facility] (groups A, C, Y and Branc h W-135) conjugate vaccine (MCV4P) TDAP 2007-12-29 Completed University of 00:00:00 [facility] Meningococcal 2007-12-29 Completed University of Polysaccharide 00:00:00 [place] [facility] (groups A, C, Y and Branc h W-135) conjugate vaccine (MCV4P) TDAP 2007-12-29 Completed University of 00:00:00 [facility] Meningococcal 2007-12-29 Completed University of Polysaccharide 00:00:00 [place] [facility] (groups A, C, Y and Branc h W-135) conjugate vaccine (MCV4P) TDAP 2007-12-29 Completed University of 00:00:00 [facility] Meningococcal 2007-12-29 Completed University of Polysaccharide 00:00:00 [place] [facility] (groups A, C, Y and Branc h W-135) conjugate vaccine (MCV4P) TDAP 2007-12-29 Completed University of 00:00:00 [facility] Meningococcal 2007-12-29 Completed University of Polysaccharide 00:00:00 [place] [facility] (groups A, C, Y and Branc h W-135) conjugate vaccine (MCV4P) TDAP 2007-12-29 Completed University of 00:00:00 [facility] Meningococcal 2007-12-29 Completed University of Polysaccharide 00:00:00 [place] [facility] (groups A, C, Y and Branc h W-135) conjugate vaccine (MCV4P) TDAP 2007-12-29 Completed University of 00:00:00 [facility] Meningococcal 2007-12-29 Completed University of Polysaccharide 00:00:00 [place] [facility] (groups A, C, Y and Branc h W-135) conjugate vaccine (MCV4P) TDAP 2007-12-29 Completed University of 00:00:00 [facility] Meningococcal 2007-12-29 Completed [facility] of Polysaccharide 00:00:00 [place] [facility] (groups A, C, Y and Branc h W-135) conjugate vaccine (MCV4P) TDAP 2007-12-29 Completed University of 00:00:00 [facility] Meningococcal 2007-12-29 Completed University of Polysaccharide 00:00:00 [place] [facility] (groups A, C, Y and Branc h W-135) conjugate vaccine (MCV4P) TDAP 2007-12-29 Completed University of 00:00:00 [facility] DTaP, Unspecified 1998-01-03 Completed [facility] Formulation 00:00:00 [facility] Hep B, Adol or Pedi 1998-01-03 Completed [facility] of Dosage 00:00:00 [facility] Poliovirus, Live, 1998-01-03 Completed [facility] Oral, Trivalent 00:00:00 [facility] DTaP, Unspecified 1998-01-03 Completed [facility] Formulation 00:00:00 [facility] Hep B, Adol or Pedi 1998-01-03 Completed [facility] Dosage 00:00:00 [facility] Poliovirus, Live, 1998-01-03 Completed [facility] Oral, Trivalent 00:00:00 [facility] DTaP, Unspecified 1998-01-03 Completed [facility] Formulation 00:00:00 [facility] Hep B, Adol or Pedi 1998-01-03 Completed [facility] of Dosage 00:00:00 [facility] Poliovirus, Live, 1998-01-03 Completed [facility] Oral, Trivalent 00:00:00 [facility] DTaP, Unspecified 1998-01-03 Completed [facility] Formulation 00:00:00 [facility] Hep B, Adol or Pedi 1998-01-03 Completed [facility] of Dosage 00:00:00 [facility] Poliovirus, Live, 1998-01-03 Completed [facility] Oral, Trivalent 00:00:00 [facility] DTaP, Unspecified 1998-01-03 Completed [facility] Formulation 00:00:00 [facility] Hep B, Adol or Pedi 1998-01-03 Completed [facility] of Dosage 00:00:00 [facility] Poliovirus, Live, 1998-01-03 Completed [facility] Oral, Trivalent 00:00:00 [facility] DTaP, Unspecified 1998-01-03 Completed [facility] Formulation 00:00:00 [facility] Hep B, Adol or Pedi 1998-01-03 Completed [facility] of Dosage 00:00:00 [facility] Poliovirus, Live, 1998-01-03 Completed [facility] Oral, Trivalent 00:00:00 [facility] DTaP, Unspecified 1998-01-03 Completed [facility] Formulation 00:00:00 [facility] Hep B, Adol or Pedi 1998-01-03 Completed [facility] Dosage 00:00:00 [facility] Poliovirus, Live, 1998-01-03 Completed [facility] Oral, Trivalent 00:00:00 [facility] DTaP, Unspecified 1998-01-03 Completed [facility] Formulation 00:00:00 [facility] Hep B, Adol or Pedi 1998-01-03 Completed [facility] of Dosage 00:00:00 [facility] Poliovirus, Live, 1998-01-03 Completed [facility] Oral, Trivalent 00:00:00 [facility] DTaP, Unspecified 1998-01-03 Completed [facility] Formulation 00:00:00 [facility] Hep B, Adol or Pedi 1998-01-03 Completed [facility] of Dosage 00:00:00 [facility] Poliovirus, Live, 1998-01-03 Completed [facility] Oral, Trivalent 00:00:00 [facility] DTaP, Unspecified 1998-01-03 Completed [facility] Formulation 00:00:00 [facility] Hep B, Adol or Pedi 1998-01-03 Completed [facility] of Dosage 00:00:00 [facility] Poliovirus, Live, 1998-01-03 Completed [facility] Oral, Trivalent 00:00:00 [facility] DTaP, Unspecified 1998-01-03 Completed [facility] Formulation 00:00:00 [facility] Hep B, Adol or Pedi 1998-01-03 Completed [facility] of Dosage 00:00:00 [facility] Poliovirus, Live, 1998-01-03 Completed [facility] Oral, Trivalent 00:00:00 [facility] DTaP, Unspecified 1998-01-03 Completed [facility] Formulation 00:00:00 [facility] Hep B, Adol or Pedi 1998-01-03 Completed [facility] of Dosage 00:00:00 [facility] Poliovirus, Live, 1998-01-03 Completed [facility] of Oral, Trivalent 00:00:00 [facility] DTaP, Unspecified 1998-01-03 Completed [facility] Formulation 00:00:00 [facility] Hep B, Adol or Pedi 1998-01-03 Completed [facility] of Dosage 00:00:00 [facility] Poliovirus, Live, 1998-01-03 Completed [facility] Oral, Trivalent 00:00:00 [facility] DTaP, Unspecified 1998-01-03 Completed [facility] Formulation 00:00:00 [facility] Hep B, Adol or Pedi 1998-01-03 Completed [facility] of Dosage 00:00:00 [facility] Poliovirus, Live, 1998-01-03 Completed [facility] of Oral, Trivalent 00:00:00 [facility] DTaP, Unspecified 1998-01-03 Completed [facility] Formulation 00:00:00 [facility] Hep B, Adol or Pedi 1998-01-03 Completed [facility] of Dosage 00:00:00 [facility] Poliovirus, Live, 1998-01-03 Completed [facility] Oral, Trivalent 00:00:00 [facility] DTaP, Unspecified 1998-01-03 Completed [facility] Formulation 00:00:00 [facility] Hep B, Adol or Pedi 1998-01-03 Completed [facility] of Dosage 00:00:00 [facility] Poliovirus, Live, 1998-01-03 Completed [facility] Oral, Trivalent 00:00:00 [facility] DTaP, Unspecified 1998-01-03 Completed [facility] Formulation 00:00:00 [facility] Hep B, Adol or Pedi 1998-01-03 Completed [facility] of Dosage 00:00:00 [facility] Poliovirus, Live, 1998-01-03 Completed [facility] Oral, Trivalent 00:00:00 [facility] DTaP, Unspecified 1998-01-03 Completed [facility] Formulation 00:00:00 [facility] Hep B, Adol or Pedi 1998-01-03 Completed [facility] of Dosage 00:00:00 [facility] Poliovirus, Live, 1998-01-03 Completed [facility] Oral, Trivalent 00:00:00 [facility] DTaP, Unspecified 1998-01-03 Completed [facility] Formulation 00:00:00 [facility] Hep B, Adol or Pedi 1998-01-03 Completed [facility] of Dosage 00:00:00 [facility] Poliovirus, Live, 1998-01-03 Completed [facility] Oral, Trivalent 00:00:00 [facility] DTaP, Unspecified 1998-01-03 Completed [facility] Formulation 00:00:00 [facility] Hep B, Adol or Pedi 1998-01-03 Completed [facility] of Dosage 00:00:00 [facility] Poliovirus, Live, 1998-01-03 Completed [facility] of Oral, Trivalent 00:00:00 [facility] DTaP, Unspecified 1998-01-03 Completed [facility] Formulation 00:00:00 [facility] Hep B, Adol or Pedi 1998-01-03 Completed [facility] of Dosage 00:00:00 [facility] Poliovirus, Live, 1998-01-03 Completed [facility] Oral, Trivalent 00:00:00 [facility] DTaP, Unspecified 1998-01-03 Completed [facility] Formulation 00:00:00 [facility] Hep B, Adol or Pedi 1998-01-03 Completed [facility] of Dosage 00:00:00 [facility] Poliovirus, Live, 1998-01-03 Completed [facility] of Oral, Trivalent 00:00:00 [facility] DTaP, Unspecified 1998-01-03 Completed [facility] Formulation 00:00:00 [facility] Hep B, Adol or Pedi 1998-01-03 Completed [facility] of Dosage 00:00:00 [facility] Poliovirus, Live, 1998-01-03 Completed [facility] of Oral, Trivalent 00:00:00 [facility] DTaP, Unspecified 1998-01-03 Completed [facility] Formulation 00:00:00 [facility] Hep B, Adol or Pedi 1998-01-03 Completed [facility] of Dosage 00:00:00 [facility] Poliovirus, Live, 1998-01-03 Completed [facility] of Oral, Trivalent 00:00:00 [facility] Hep B, Unspecified 1997-03-28 Completed [facility] of Formulation 00:00:00 [facility] Hep B, Adol or Pedi 1997-03-28 Completed [facility] of Dosage 00:00:00 [facility] MMR 1997-03-28 Completed [facility] 00:00:00 [facility] Hep B, Unspecified 1997-03-28 Completed [facility] of Formulation 00:00:00 [facility] Hep B, Adol or Pedi 1997-03-28 Completed [facility] rs[facility] of Dosage 00:00:00 [facility] MMR 1997-03-28 Completed [facility] 00:00:00 [facility] Hep B, Unspecified 1997-03-28 Completed [facility] of Formulation 00:00:00 [facility] Hep B, Adol or Pedi 1997-03-28 Completed [facility]ive rs[facility] of Dosage 00:00:00 [facility] MMR 1997-03-28 Completed [facility] 00:00:00 [facility] Hep B, Unspecified 1997-03-28 Completed [facility] of Formulation 00:00:00 [facility] Hep B, Adol or Pedi 1997-03-28 Completed [facility] of Dosage 00:00:00 [facility] MMR 1997-03-28 Completed [facility] 00:00:00 [facility] Hep B, Unspecified 1997-03-28 Completed [facility] of Formulation 00:00:00 [facility] Hep B, Adol or Pedi 1997-03-28 Completed [facility] of Dosage 00:00:00 [facility] MMR 1997-03-28 Completed [facility] 00:00:00 [facility] Hep B, Unspecified 1997-03-28 Completed [facility] of Formulation 00:00:00 [facility] Hep B, Adol or Pedi 1997-03-28 Completed [facility] of Dosage 00:00:00 [facility] MMR 1997-03-28 Completed [facility] 00:00:00 [facility] Hep B, Unspecified 1997-03-28 Completed [facility] of Formulation 00:00:00 [facility] Hep B, Adol or Pedi 1997-03-28 Completed [facility] of Dosage 00:00:00 [facility] MMR 1997-03-28 Completed [facility] 00:00:00 [facility] Hep B, Unspecified 1997-03-28 Completed [facility] of Formulation 00:00:00 [facility] Hep B, Adol or Pedi 1997-03-28 Completed [facility] of Dosage 00:00:00 [facility] MMR 1997-03-28 Completed [facility] 00:00:00 [facility] Hep B, Unspecified 1997-03-28 Completed [facility] of Formulation 00:00:00 [facility] Hep B, Adol or Pedi 1997-03-28 Completed [facility] of Dosage 00:00:00 [facility] MMR 1997-03-28 Completed [facility] 00:00:00 [facility] Hep B, Unspecified 1997-03-28 Completed [facility] of Formulation 00:00:00 [facility] Hep B, Adol or Pedi 1997-03-28 Completed [facility] of Dosage 00:00:00 [facility] MMR 1997-03-28 Completed [facility] 00:00:00 [facility] Hep B, Unspecified 1997-03-28 Completed [facility] of Formulation 00:00:00 [facility] Hep B, Adol or Pedi 1997-03-28 Completed [facility] of Dosage 00:00:00 [facility] MMR 1997-03-28 Completed [facility] 00:00:00 [facility] Hep B, Unspecified 1997-03-28 Completed [facility] of Formulation 00:00:00 [facility] Hep B, Adol or Pedi 1997-03-28 Completed [facility] of Dosage 00:00:00 [facility] MMR 1997-03-28 Completed [facility] 00:00:00 [facility] Hep B, Unspecified 1997-03-28 Completed [facility] of Formulation 00:00:00 [facility] Hep B, Adol or Pedi 1997-03-28 Completed [facility] of Dosage 00:00:00 [facility] MMR 1997-03-28 Completed [facility] 00:00:00 [facility] Hep B, Unspecified 1997-03-28 Completed [facility]iver [facility]ity of Formulation 00:00:00 [facility] Hep B, Adol or Pedi 1997-03-28 Completed [facility]ive [facility]ity of Dosage 00:00:00 [facility] MMR 1997-03-28 Completed [facility] 00:00:00 [facility] Hep B, Unspecified 1997-03-28 Completed [facility] of Formulation 00:00:00 [facility] Hep B, Adol or Pedi 1997-03-28 Completed [facility]ive [facility] of Dosage 00:00:00 [facility] MMR 1997-03-28 Completed [facility] 00:00:00 [facility] Hep B, Unspecified 1997-03-28 Completed [facility] of Formulation 00:00:00 [facility] Hep B, Adol or Pedi 1997-03-28 Completed [facility]ive [facility]ity of Dosage 00:00:00 [facility] MMR 1997-03-28 Completed [facility] 00:00:00 [facility] Hep B, Unspecified 1997-03-28 Completed [facility] of Formulation 00:00:00 [facility] Hep B, Adol or Pedi 1997-03-28 Completed [facility]ive rsity of Dosage 00:00:00 [facility] MMR 1997-03-28 Completed [facility] 00:00:00 [facility] Hep B, Unspecified 1997-03-28 Completed [facility] of Formulation 00:00:00 [facility] Hep B, Adol or Pedi 1997-03-28 Completed [facility] of Dosage 00:00:00 [facility] MMR 1997-03-28 Completed [facility] 00:00:00 [facility] Hep B, Unspecified 1997-03-28 Completed [facility] of Formulation 00:00:00 [facility] Hep B, Adol or Pedi 1997-03-28 Completed [facility]ive [facility] of Dosage 00:00:00 [facility] MMR 1997-03-28 Completed [facility] 00:00:00 [facility] Hep B, Unspecified 1997-03-28 Completed [facility] of Formulation 00:00:00 [facility] Hep B, Adol or Pedi 1997-03-28 Completed [facility] of Dosage 00:00:00 [facility] MMR 1997-03-28 Completed [facility] 00:00:00 [facility] Hep B, Unspecified 1997-03-28 Completed [facility] of Formulation 00:00:00 [facility] Hep B, Adol or Pedi 1997-03-28 Completed [facility]ive rsity of Dosage 00:00:00 [facility] MMR 1997-03-28 Completed [facility] 00:00:00 [facility] Hep B, Unspecified 1997-03-28 Completed [facility] of Formulation 00:00:00 [facility] Hep B, Adol or Pedi 1997-03-28 Completed [facility]ity of Dosage 00:00:00 [facility] MMR 1997-03-28 Completed [facility] 00:00:00 [facility] Hep B, Unspecified 1997-03-28 Completed [facility] of Formulation 00:00:00 [facility] Hep B, Adol or Pedi 1997-03-28 Completed [facility]ive rsity of Dosage 00:00:00 [facility] MMR 1997-03-28 Completed [facility] 00:00:00 [facility] Hep B, Unspecified 1997-03-28 Completed [facility] of Formulation 00:00:00 [facility] Hep B, Adol or Pedi 1997-03-28 Completed [facility]ive rsity of Dosage 00:00:00 [facility] MMR 1997-03-28 Completed [facility] of 00:00:00 [facility] 1994-05-19 Completed [facility] of 00:00:00 [facility] Hib-HbOC 1994-05-19 Completed [facility] of 00:00:00 [facility] 1994-05-19 Completed [facility] of 00:00:00 [facility] Poliovirus, Live, 1994-05-19 Completed Univers [facility]y of Oral, Trivalent 00:00:00 [facility] 1994-05-19 Completed [facility] of 00:00:00 [facility] Hib-HbOC 1994-05-19 Completed [facility] of 00:00:00 [facility] 1994-05-19 Completed [facility] of 00:00:00 [facility] Poliovirus, Live, 1994-05-19 Completed [facility] of Oral, Trivalent 00:00:00 [facility] 1994-05-19 Completed [facility] of 00:00:00 [facility] Hib-HbOC 1994-05-19 Completed [facility] of 00:00:00 [facility] 1994-05-19 Completed [facility] of 00:00:00 [facility] Poliovirus, Live, 1994-05-19 Completed [facility]y of Oral, Trivalent 00:00:00 [facility] 1994-05-19 Completed [facility] of 00:00:00 [facility] Hib-HbOC 1994-05-19 Completed [facility] of 00:00:00 [facility] 1994-05-19 Completed [facility] of 00:00:00 [facility] Poliovirus, Live, 1994-05-19 Completed [facility]y of Oral, Trivalent 00:00:00 [facility] 1994-05-19 Completed [facility] of 00:00:00 [facility] Hib-HbOC 1994-05-19 Completed [facility] of 00:00:00 [facility] 1994-05-19 Completed [facility] of 00:00:00 [facility] Poliovirus, Live, 1994-05-19 Completed [facility]y of Oral, Trivalent 00:00:00 [facility] 1994-05-19 Completed [facility] of 00:00:00 [facility] Hib-HbOC 1994-05-19 Completed [facility] of 00:00:00 [facility] MMR 1994-05-19 Completed [facility] of 00:00:00 [facility] Poliovirus, Live, 1994-05-19 Completed [facility] of Oral, Trivalent 00:00:00 [facility] 1994-05-19 Completed [facility] of 00:00:00 [facility] Hib-HbOC 1994-05-19 Completed [facility] of 00:00:00 [facility] MMR 1994-05-19 Completed [facility] of 00:00:00 [facility] Poliovirus, Live, 1994-05-19 Completed [facility]y of Oral, Trivalent 00:00:00 [facility] DT 1994-05-19 Completed University of 00:00:00 [facility] Hib-HbOC 1994-05-19 Completed University of 00:00:00 [facility] 1994-05-19 Completed [facility] of 00:00:00 [facility] Poliovirus, Live, 1994-05-19 Completed [facility] ity of Oral, Trivalent 00:00:00 [facility] 1994-05-19 Completed [facility] of 00:00:00 [facility] Hib-HbOC 1994-05-19 Completed [facility] of 00:00:00 [facility] 1994-05-19 Completed [facility] of 00:00:00 [facility] Poliovirus, Live, 1994-05-19 Completed [facility] of Oral, Trivalent 00:00:00 [facility] 1994-05-19 Completed [facility] of 00:00:00 [facility] Hib-HbOC 1994-05-19 Completed [facility] of 00:00:00 [facility] MMR 1994-05-19 Completed [facility] of 00:00:00 [facility] Poliovirus, Live, 1994-05-19 Completed [facility] of Oral, Trivalent 00:00:00 [facility] 1994-05-19 Completed [facility] of 00:00:00 [facility] Hib-HbOC 1994-05-19 Completed [facility] of 00:00:00 [facility] MMR 1994-05-19 Completed [facility] of 00:00:00 [facility] Poliovirus, Live, 1994-05-19 Completed [facility] of Oral, Trivalent 00:00:00 [facility] 1994-05-19 Completed [facility] of 00:00:00 [facility] Hib-HbOC 1994-05-19 Completed [facility] of 00:00:00 [facility] MMR 1994-05-19 Completed [facility] of 00:00:00 [facility] Poliovirus, Live, 1994-05-19 Completed [facility] of Oral, Trivalent 00:00:00 [facility] 1994-05-19 Completed [facility] of 00:00:00 [facility] Hib-HbOC 1994-05-19 Completed [facility] of 00:00:00 [facility] MMR 1994-05-19 Completed [facility] of 00:00:00 [facility] Poliovirus, Live, 1994-05-19 Completed [facility] ity of Oral, Trivalent 00:00:00 [facility] 1994-05-19 Completed [facility] of 00:00:00 [facility] Hib-HbOC 1994-05-19 Completed [facility] of 00:00:00 [facility] 1994-05-19 Completed [facility] of 00:00:00 [facility] Poliovirus, Live, 1994-05-19 Completed [facility] ity of Oral, Trivalent 00:00:00 [facility] 1994-05-19 Completed [facility] of 00:00:00 [facility] Hib-HbOC 1994-05-19 Completed [facility] of 00:00:00 [facility] 1994-05-19 Completed [facility] of 00:00:00 [facility] Poliovirus, Live, 1994-05-19 Completed [facility] ity of Oral, Trivalent 00:00:00 [facility] 1994-05-19 Completed [facility] of 00:00:00 [facility] Hib-HbOC 1994-05-19 Completed [facility] of 00:00:00 [facility] MMR 1994-05-19 Completed [facility] of 00:00:00 [facility] Poliovirus, Live, 1994-05-19 Completed [facility] it[facility] of Oral, Trivalent 00:00:00 [facility] 1994-05-19 Completed [facility] of 00:00:00 [facility] Hib-HbOC 1994-05-19 Completed [facility] of 00:00:00 [facility] 1994-05-19 Completed [facility] of 00:00:00 [facility] Poliovirus, Live, 1994-05-19 Completed [facility] ity of Oral, Trivalent 00:00:00 [facility] 1994-05-19 Completed [facility] of 00:00:00 [facility] Hib-HbOC 1994-05-19 Completed [facility] of 00:00:00 [facility] MMR 1994-05-19 Completed [facility] of 00:00:00 [facility] Poliovirus, Live, 1994-05-19 Completed [facility] ity of Oral, Trivalent 00:00:00 [facility] 1994-05-19 Completed [facility] of 00:00:00 [facility] Hib-HbOC 1994-05-19 Completed [facility] of 00:00:00 [facility] MMR 1994-05-19 Completed [facility] 00:00:00 [facility] Poliovirus, Live, 1994-05-19 Completed [facility] of Oral, Trivalent 00:00:00 [facility] 1994-05-19 Completed [facility] of 00:00:00 [facility] Hib-HbOC 1994-05-19 Completed [facility] of 00:00:00 [facility] MMR 1994-05-19 Completed [facility] 00:00:00 [facility] Poliovirus, Live, 1994-05-19 Completed [facility] of Oral, Trivalent 00:00:00 [facility] 1994-05-19 Completed [facility] of 00:00:00 [facility] Hib-HbOC 1994-05-19 Completed [facility] of 00:00:00 [facility] MMR 1994-05-19 Completed [facility] of 00:00:00 [facility] Poliovirus, Live, 1994-05-19 Completed [facility] of Oral, Trivalent 00:00:00 [facility] 1994-05-19 Completed [facility] of 00:00:00 [facility] Hib-HbOC 1994-05-19 Completed [facility] of 00:00:00 [facility] MMR 1994-05-19 Completed [facility] 00:00:00 [facility] Poliovirus, Live, 1994-05-19 Completed [facility] of Oral, Trivalent 00:00:00 [facility] 1994-05-19 Completed [facility] of 00:00:00 [facility] Hib-HbOC 1994-05-19 Completed [facility] of 00:00:00 [facility] MMR 1994-05-19 Completed [facility] 00:00:00 [facility] Poliovirus, Live, 1994-05-19 Completed [facility] of Oral, Trivalent 00:00:00 [facility] 1994-05-19 Completed [facility] of 00:00:00 [facility] Hib-HbOC 1994-05-19 Completed [facility] of 00:00:00 [facility] MMR 1994-05-19 Completed [facility] 00:00:00 [facility] Poliovirus, Live, 1994-05-19 Completed [facility] ity of Oral, Trivalent 00:00:00 [facility] Heamophilus Influenza 1994-05-09 Completed Uni versity of B 00:00:00 [facility] Heamophilus Influenza 1994-05-09 Completed Uni vers[facility] of B 00:00:00 [facility] Heamophilus Influenza 1994-05-09 Completed Uni vers[facility] of B 00:00:00 [facility] Heamophilus Influenza 1994-05-09 Completed Uni vers[facility] of B 00:00:00 [facility] Heamophilus Influenza 1994-05-09 Completed Uni vers[facility] of B 00:00:00 [facility] Heamophilus Influenza 1994-05-09 Completed Uni vers[facility] of B 00:00:00 [facility] Heamophilus Influenza 1994-05-09 Completed Uni vers[facility] of B 00:00:00 [facility] Heamophilus Influenza 1994-05-09 Completed [facility] B 00:00:00 [facility] Heamophilus Influenza 1994-05-09 Completed [facility] B 00:00:00 [facility] Heamophilus Influenza 1994-05-09 Completed [facility] B 00:00:00 [facility] Heamophilus Influenza 1994-05-09 Completed [facility] B 00:00:00 [facility] Heamophilus Influenza 1994-05-09 Completed [facility] B 00:00:00 [facility] Heamophilus Influenza 1994-05-09 Completed [facility] B 00:00:00 [facility] Heamophilus Influenza 1994-05-09 Completed [facility] B 00:00:00 [facility] Heamophilus Influenza 1994-05-09 Completed [facility] B 00:00:00 [facility] Heamophilus Influenza 1994-05-09 Completed [facility] vers[facility] B 00:00:00 [facility] Heamophilus Influenza 1994-05-09 Completed [facility] B 00:00:00 [facility] Heamophilus Influenza 1994-05-09 Completed [facility] B 00:00:00 [facility] Heamophilus Influenza 1994-05-09 Completed [facility] B 00:00:00 [facility] Heamophilus Influenza 1994-05-09 Completed [facility] of B 00:00:00 [facility] Heamophilus Influenza 1994-05-09 Completed [facility] B 00:00:00 [facility] Heamophilus Influenza 1994-05-09 Completed [facility] B 00:00:00 [facility] Heamophilus Influenza 1994-05-09 Completed [facility] B 00:00:00 [facility] Heamophilus Influenza 1994-05-09 Completed [facility] B 00:00:00 [facility] Hep B, Unspecified 1993-04-29 Completed [facility]iver [facility] of Formulation 00:00:00 [facility] Hep B, Adol or Pedi 1993-04-29 Completed Unive rsity of Dosage 00:00:00 [facility] Hep B, Unspecified 1993-04-29 Completed [facility] of Formulation 00:00:00 [facility] Hep B, Adol or Pedi 1993-04-29 Completed [facility] of Dosage 00:00:00 [facility] Hep B, Unspecified 1993-04-29 Completed [facility] of Formulation 00:00:00 [facility] Hep B, Adol or Pedi 1993-04-29 Completed [facility]ive rs[facility] of Dosage 00:00:00 [facility] Hep B, Unspecified 1993-04-29 Completed [facility] of Formulation 00:00:00 [facility] Hep B, Adol or Pedi 1993-04-29 Completed [facility]ive rs[facility] of Dosage 00:00:00 [facility] Hep B, Unspecified 1993-04-29 Completed [facility] of Formulation 00:00:00 [facility] Hep B, Adol or Pedi 1993-04-29 Completed [facility] rs[facility] of Dosage 00:00:00 [facility] Hep B, Unspecified 1993-04-29 Completed [facility]iver [facility] of Formulation 00:00:00 [facility] Hep B, Adol or Pedi 1993-04-29 Completed [facility]ive rs[facility] of Dosage 00:00:00 [facility] Hep B, Unspecified 1993-04-29 Completed [...] Completed Unive rsity of Dosage 00:00:00 [facility] Hep B, Unspecified 1993-04-29 Completed [facility] of Formulation 00:00:00 [facility] Hep B, Adol or Pedi 1993-04-29 Completed [facility]ive rsity of Dosage 00:00:00 [facility] Hep B, Unspecified 1993-04-29 Completed [facility] of Formulation 00:00:00 [facility] Hep B, Adol or Pedi 1993-04-29 Completed [facility]ive rs[facility] of Dosage 00:00:00 [facility] Hep B, Unspecified 1993-04-29 Completed [facility]iver [facility] of Formulation 00:00:00 [facility] Hep B, Adol or Pedi 1993-04-29 Completed [facility]ive rsity of Dosage 00:00:00 [facility] Hep B, Unspecified 1993-04-29 Completed [facility]iver [facility] of Formulation 00:00:00 [facility] Hep B, Adol or Pedi 1993-04-29 Completed Unive rs[facility] of Dosage 00:00:00 [facility] DTP 1992 Completed [facility] 00:00:00 [facility] Heamophilus Influenza 1992 Completed [facility] B 00:00:00 [facility] Hib-HbOC 1992 Completed [facility] of 00:00:00 [facility] DTP 1992 Completed [facility] 00:00:00 [facility] Heamophilus Influenza 1992 Completed [facility] B 00:00:00 [facility] Hib-HbOC 1992 Completed [facility] of 00:00:00 [facility] DTP 1992 Completed [facility] of 00:00:00 [facility] Heamophilus Influenza 1992 Completed [facility] B 00:00:00 [facility] Hib-HbOC 1992 Completed [facility] of 00:00:00 [facility] DTP 1992 Completed [facility] of 00:00:00 [facility] Heamophilus Influenza 1992 Completed [facility] vers[facility] B 00:00:00 [facility] Hib-HbOC 1992 Completed [facility] of 00:00:00 [facility] DTP 1992 Completed [facility] of 00:00:00 [facility] Heamophilus Influenza 1992 Completed [facility] B 00:00:00 [facility] Hib-HbOC 1992 Completed [facility] of 00:00:00 [facility] DTP 1992 Completed [facility] 00:00:00 [facility] Heamophilus Influenza 1992 Completed [facility] B 00:00:00 [facility] Hib-HbOC 1992 Completed [facility] 00:00:00 [facility] DTP 1992 Completed [facility] 00:00:00 [facility] Heamophilus Influenza 1992 Completed [facility] B 00:00:00 [facility] Hib-HbOC 1992 Completed [facility] 00:00:00 [facility] DTP 1992 Completed [facility] 00:00:00 [facility] Heamophilus Influenza 1992 Completed [facility] B 00:00:00 [facility] Hib-HbOC 1992 Completed [facility] of 00:00:00 [facility] DTP 1992 Completed [facility] of 00:00:00 [facility] Heamophilus Influenza 1992 Completed [facility] vers[facility] of B 00:00:00 [facility] Hib-HbOC 1992 Completed [facility] of 00:00:00 [facility] DTP 1992 Completed [facility] of 00:00:00 [facility] Heamophilus Influenza 1992 Completed [facility] vers[facility] B 00:00:00 [facility] Hib-HbOC 1992 Completed [facility] of 00:00:00 [facility] DTP 1992 Completed [facility] of 00:00:00 [facility] Heamophilus Influenza 1992 Completed [facility] vers[facility] of B 00:00:00 [facility] Hib-HbOC 1992 Completed [facility] 00:00:00 [facility] DTP 1992 Completed [facility] 00:00:00 [facility] Heamophilus Influenza 1992 Completed [facility] B 00:00:00 [facility] Hib-HbOC 1992 Completed [facility] of 00:00:00 [facility] DTP 1992 Completed [facility] 00:00:00 [facility] Heamophilus Influenza 1992 Completed [facility] B 00:00:00 [facility] Hib-HbOC 1992 Completed [facility] 00:00:00 [facility] DTP 1992 Completed [facility] 00:00:00 [facility] Heamophilus Influenza 1992 Completed [facility] B 00:00:00 [facility] Hib-HbOC 1992 Completed [facility] 00:00:00 [facility] DTP 1992 Completed [facility] 00:00:00 [facility] Heamophilus Influenza 1992 Completed [facility] vers[facility] B 00:00:00 [facility] Hib-HbOC 1992 Completed [facility] 00:00:00 [facility] DTP 1992 Completed [facility] 00:00:00 [facility] Heamophilus Influenza 1992 Completed [facility] vers[facility] B 00:00:00 [facility] Hib-HbOC 1992 Completed [facility] of 00:00:00 [facility] DTP 1992 Completed [facility] 00:00:00 [facility] Heamophilus Influenza 1992 Completed [facility] vers[facility] of B 00:00:00 [facility] Hib-HbOC 1992 Completed [facility] 00:00:00 [facility] DTP 1992 Completed [facility] 00:00:00 [facility] Heamophilus Influenza 1992 Completed [facility] vers[facility] B 00:00:00 [facility] Hib-HbOC 1992 Completed [facility] of 00:00:00 [facility] DTP 1992 Completed [facility] 00:00:00 [facility] Heamophilus Influenza 1992 Completed [facility] vers[facility] B 00:00:00 [facility] Hib-HbOC 1992 Completed [facility] 00:00:00 [facility] DTP 1992 Completed [facility] 00:00:00 [facility] Heamophilus Influenza 1992 Completed [facility] B 00:00:00 [facility] Hib-HbOC 1992 Completed [facility] of 00:00:00 [facility] DTP 1992 Completed [facility] 00:00:00 [facility] Heamophilus Influenza 1992 Completed [facility] B 00:00:00 [facility] Hib-HbOC 1992 Completed [facility] of 00:00:00 [facility] DTP 1992 Completed [facility] 00:00:00 [facility] Heamophilus Influenza 1992 Completed [facility] B 00:00:00 [facility] Hib-HbOC 1992 Completed [facility] 00:00:00 [facility] DTP 1992 Completed [facility] 00:00:00 [facility] Heamophilus Influenza 1992 Completed [facility] B 00:00:00 [facility] Hib-HbOC 1992 Completed [facility] 00:00:00 [facility] DTP 1992 Completed [facility] 00:00:00 [facility] Heamophilus Influenza 1992 Completed [facility] B 00:00:00 [facility] Hib-HbOC 1992 Completed [facility] 00:00:00 [facility] DTP 1992 Completed [facility] 00:00:00 [facility] Heamophilus Influenza 1992 Completed [facility] B 00:00:00 [facility] Hib-HbOC 1992 Completed [facility] 00:00:00 [facility] Poliovirus, Live, 1992 Completed Univers ity of Oral, Trivalent 00:00:00 [facility] DTP 1992 Completed [facility] of 00:00:00 [facility] Heamophilus Influenza 1992 Completed [facility] B 00:00:00 [facility] Hib-HbOC 1992 Completed [facility] 00:00:00 [facility] Poliovirus, Live, 1992 Completed Univers ity of Oral, Trivalent 00:00:00 [facility] DT 1992 Completed [facility] of 00:00:00 [facility] Heamophilus Influenza 1992 Completed [facility] B 00:00:00 [facility] Hib-HbOC 1992 Completed [facility] 00:00:00 [facility] Poliovirus, Live, 1992 Completed Univers ity of Oral, Trivalent 00:00:00 [facility] DT 1992 Completed [facility] of 00:00:00 [facility] Heamophilus Influenza 1992 Completed [facility] B 00:00:00 [facility] Hib-HbOC 1992 Completed [facility] 00:00:00 [facility] Poliovirus, Live, 1992 Completed Univers ity of Oral, Trivalent 00:00:00 [facility] 1992 Completed [facility] of 00:00:00 [facility] Heamophilus Influenza 1992 Completed [facility] B 00:00:00 [facility] Hib-HbOC 1992 Completed [facility] 00:00:00 [facility] Poliovirus, Live, 1992 Completed [facility]y of Oral, Trivalent 00:00:00 [facility] 1992 Completed [facility] 00:00:00 [facility] Heamophilus Influenza 1992 Completed [facility] B 00:00:00 [facility] Hib-HbOC 1992 Completed [facility] 00:00:00 [facility] Poliovirus, Live, 1992 Completed [facility] ity of Oral, Trivalent 00:00:00 [facility] DTP 1992 Completed [facility] of 00:00:00 [facility] Heamophilus Influenza 1992 Completed [facility] B 00:00:00 [facility] Hib-HbOC 1992 Completed [facility] 00:00:00 [facility] Poliovirus, Live, 1992 Completed [facility] ity of Oral, Trivalent 00:00:00 [facility] 1992 Completed [facility] 00:00:00 [facility] Heamophilus Influenza 1992 Completed [facility] B 00:00:00 [facility] Hib-HbOC 1992 Completed [facility] 00:00:00 [facility] Poliovirus, Live, 1992 Completed [facility]y of Oral, Trivalent 00:00:00 [facility] 1992 Completed [facility] 00:00:00 [facility] Heamophilus Influenza 1992 Completed [facility] B 00:00:00 [facility] Hib-HbOC 1992 Completed [facility] 00:00:00 [facility] Poliovirus, Live, 1992 Completed [facility]y of Oral, Trivalent 00:00:00 [facility] 1992 Completed [facility] 00:00:00 [facility] Heamophilus Influenza 1992 Completed [facility] B 00:00:00 [facility] Hib-HbOC 1992 Completed [facility] 00:00:00 [facility] Poliovirus, Live, 1992 Completed [facility] of Oral, Trivalent 00:00:00 [facility] 1992 Completed [facility] 00:00:00 [facility] Heamophilus Influenza 1992 Completed [facility] B 00:00:00 [facility] Hib-HbOC 1992 Completed [facility] 00:00:00 [facility] Poliovirus, Live, 1992 Completed [facility] of Oral, Trivalent 00:00:00 [facility] 1992 Completed [facility] 00:00:00 [facility] Heamophilus Influenza 1992 Completed [facility] B 00:00:00 [facility] Hib-HbOC 1992 Completed [facility] 00:00:00 [facility] Poliovirus, Live, 1992 Completed [facility] of Oral, Trivalent 00:00:00 [facility] 1992 Completed [facility] 00:00:00 [facility] Heamophilus Influenza 1992 Completed [facility] B 00:00:00 [facility] Hib-HbOC 1992 Completed [facility] 00:00:00 [facility] Poliovirus, Live, 1992 Completed [facility]y of Oral, Trivalent 00:00:00 [facility] DT 1992 Completed [facility] 00:00:00 [facility] Heamophilus Influenza 1992 Completed [facility] B 00:00:00 [facility] Hib-HbOC 1992 Completed [facility] 00:00:00 [facility] Poliovirus, Live, 1992 Completed [facility]y of Oral, Trivalent 00:00:00 [facility] DT 1992 Completed [facility] 00:00:00 [facility] Heamophilus Influenza 1992 Completed [facility] B 00:00:00 [facility] Hib-HbOC 1992 Completed [facility] 00:00:00 [facility] Poliovirus, Live, 1992 Completed [facility]y of Oral, Trivalent 00:00:00 [facility] 1992 Completed [facility] 00:00:00 [facility] Heamophilus Influenza 1992 Completed [facility] B 00:00:00 [facility] Hib-HbOC 1992 Completed [facility] 00:00:00 [facility] Poliovirus, Live, 1992 Completed [facility] of Oral, Trivalent 00:00:00 [facility] 1992 Completed [facility] 00:00:00 [facility] Heamophilus Influenza 1992 Completed [facility] B 00:00:00 [facility] Hib-HbOC 1992 Completed [facility] 00:00:00 [facility] Poliovirus, Live, 1992 Completed [facility] of Oral, Trivalent 00:00:00 [facility] DTP 1992 Completed [facility] 00:00:00 [facility] Heamophilus Influenza 1992 Completed [facility] B 00:00:00 [facility] Hib-HbOC 1992 Completed [facility] 00:00:00 [facility] Poliovirus, Live, 1992 Completed [facility]y of Oral, Trivalent 00:00:00 [facility] DT 1992 Completed [facility] 00:00:00 [facility] Heamophilus Influenza 1992 Completed [facility] B 00:00:00 [facility] Hib-HbOC 1992 Completed [facility] 00:00:00 [facility] Poliovirus, Live, 1992 Completed [facility]y of Oral, Trivalent 00:00:00 [facility] 1992 Completed [facility] 00:00:00 [facility] Heamophilus Influenza 1992 Completed [facility] vers[facility] B 00:00:00 [facility] Hib-HbOC 1992 Completed [facility] 00:00:00 [facility] Poliovirus, Live, 1992 Completed [facility]y of Oral, Trivalent 00:00:00 [facility] 1992 Completed [facility] 00:00:00 [facility] Heamophilus Influenza 1992 Completed [facility] of B 00:00:00 [facility] Hib-HbOC 1992 Completed [facility] 00:00:00 [facility] Poliovirus, Live, 1992 Completed [facility] of Oral, Trivalent 00:00:00 [facility] 1992 Completed [facility] 00:00:00 [facility] Heamophilus Influenza 1992 Completed [facility] B 00:00:00 [facility] Hib-HbOC 1992 Completed [facility] 00:00:00 [facility] Poliovirus, Live, 1992 Completed [facility] of Oral, Trivalent 00:00:00 [facility] 1992 Completed [facility] 00:00:00 [facility] Heamophilus Influenza 1992 Completed [facility] B 00:00:00 [facility] Hib-HbOC 1992 Completed [facility] 00:00:00 [facility] Poliovirus, Live, 1992 Completed [facility]y of Oral, Trivalent 00:00:00 [facility] DT 1992 Completed [facility] 00:00:00 [facility] Heamophilus Influenza 1992 Completed [facility] B 00:00:00 [facility] Hib-HbOC 1992 Completed [facility] 00:00:00 [facility] Poliovirus, Live, 1992 Completed [facility] ity of Oral, Trivalent 00:00:00 [facility] DTP 1992 Completed [facility] 00:00:00 [facility] Heamophilus Influenza 1992 Completed [facility] vers[facility] of B 00:00:00 [facility] Hib-HbOC 1992 Completed [facility] 00:00:00 [facility] Poliovirus, Live, 1992 Completed [facility]y of Oral, Trivalent 00:00:00 [facility] DTP 1992 Completed [facility] 00:00:00 [facility] Heamophilus Influenza 1992 Completed [facility] vers[facility] B 00:00:00 [facility] Hib-HbOC 1992 Completed [facility] 00:00:00 [facility] Poliovirus, Live, 1992 Completed [facility] of Oral, Trivalent 00:00:00 [facility] 1992 Completed [facility] 00:00:00 [facility] Heamophilus Influenza 1992 Completed [facility] vers[facility] B 00:00:00 [facility] Hib-HbOC 1992 Completed [facility] 00:00:00 [facility] Poliovirus, Live, 1992 Completed [facility] of Oral, Trivalent 00:00:00 [facility] DTP 1992 Completed [facility] 00:00:00 [facility] Heamophilus Influenza 1992 Completed [facility] vers[facility] B 00:00:00 [facility] Hib-HbOC 1992 Completed [facility] 00:00:00 [facility] Poliovirus, Live, 1992 Completed [facility] of Oral, Trivalent 00:00:00 [facility] DTP 1992 Completed [facility] 00:00:00 [facility] Heamophilus Influenza 1992 Completed [facility] vers[facility] B 00:00:00 [facility] Hib-HbOC 1992 Completed [facility] 00:00:00 [facility] Poliovirus, Live, 1992 Completed [facility] of Oral, Trivalent 00:00:00 [facility] DTP 1992 Completed [facility] 00:00:00 [facility] Heamophilus Influenza 1992 Completed [facility] B 00:00:00 [facility] Hib-HbOC 1992 Completed [facility] 00:00:00 [facility] Poliovirus, Live, 1992 Completed [facility] of Oral, Trivalent 00:00:00 [facility] 1992 Completed [facility] 00:00:00 [facility] Heamophilus Influenza 1992 Completed [facility] B 00:00:00 [facility] Hib-HbOC 1992 Completed [facility] 00:00:00 [facility] Poliovirus, Live, 1992 Completed [facility] of Oral, Trivalent 00:00:00 [facility] 1992 Completed [facility] 00:00:00 [facility] Heamophilus Influenza 1992 Completed [facility] B 00:00:00 [facility] Hib-HbOC 1992 Completed [facility] 00:00:00 [facility] Poliovirus, Live, 1992 Completed [facility] of Oral, Trivalent 00:00:00 [facility] 1992 Completed [facility] 00:00:00 [facility] Heamophilus Influenza 1992 Completed [facility] B 00:00:00 [facility] Hib-HbOC 1992 Completed [facility] 00:00:00 [facility] Poliovirus, Live, 1992 Completed [facility] of Oral, Trivalent 00:00:00 [facility] 1992 Completed [facility] 00:00:00 [facility] Heamophilus Influenza 1992 Completed [facility] B 00:00:00 [facility] Hib-HbOC 1992 Completed [facility] 00:00:00 [facility] Poliovirus, Live, 1992 Completed [facility] of Oral, Trivalent 00:00:00 [facility] 1992 Completed [facility] 00:00:00 [facility] Heamophilus Influenza 1992 Completed [facility] B 00:00:00 [facility] Hib-HbOC 1992 Completed [facility] 00:00:00 [facility] Poliovirus, Live, 1992 Completed [facility] of Oral, Trivalent 00:00:00 [facility] 1992 Completed [facility] 00:00:00 [facility] Heamophilus Influenza 1992 Completed [facility] B 00:00:00 [facility] Hib-HbOC 1992 Completed [facility] 00:00:00 [facility] Poliovirus, Live, 1992 Completed [facility] of Oral, Trivalent 00:00:00 [facility] 1992 Completed [facility] 00:00:00 [facility] Heamophilus Influenza 1992 Completed [facility] B 00:00:00 [facility] Hib-HbOC 1992 Completed [facility] 00:00:00 [facility] Poliovirus, Live, 1992 Completed [facility] of Oral, Trivalent 00:00:00 [facility] 1992 Completed [facility] 00:00:00 [facility] Heamophilus Influenza 1992 Completed [facility] B 00:00:00 [facility] Hib-HbOC 1992 Completed [facility] 00:00:00 [facility] Poliovirus, Live, 1992 Completed [facility] of Oral, Trivalent 00:00:00 [facility] 1992 Completed [facility] 00:00:00 [facility] Heamophilus Influenza 1992 Completed [facility] B 00:00:00 [facility] Hib-HbOC 1992 Completed [facility] of 00:00:00 [facility] Poliovirus, Live, 1992 Completed Univers ity of Oral, Trivalent 00:00:00 [facility] 1992 Completed [facility] of 00:00:00 [facility] Heamophilus Influenza 1992 Completed Uni versity of B 00:00:00 [facility] Hib-HbOC 1992 Completed [facility] 00:00:00 [facility] Poliovirus, Live, 1992 Completed Univers ity of Oral, Trivalent 00:00:00 [facility] 1992 Completed [facility] 00:00:00 [facility] Heamophilus Influenza 1992 Completed Uni versity of B 00:00:00 [facility] Hib-HbOC 1992 Completed [facility] 00:00:00 [facility] Poliovirus, Live, 1992 Completed Univers ity of Oral, Trivalent 00:00:00 [facility] 1992 Completed [facility] 00:00:00 [facility] Heamophilus Influenza 1992 Completed Uni versity of B 00:00:00 [facility] Hib-HbOC 1992 Completed [facility] of 00:00:00 [facility] Poliovirus, Live, 1992 Completed Univers ity of Oral, Trivalent 00:00:00 [facility] 1992 Completed [facility] 00:00:00 [facility] Heamophilus Influenza 1992 Completed Uni versity of B 00:00:00 [facility] Hib-HbOC 1992 Completed [facility] 00:00:00 [facility] Poliovirus, Live, 1992 Completed Univers ity of Oral, Trivalent 00:00:00 [facility] 1992 Completed [facility] 00:00:00 [facility] Heamophilus Influenza 1992 Completed Uni versity of B 00:00:00 [facility] Hib-HbOC 1992 Completed [facility] 00:00:00 [facility] Poliovirus, Live, 1992 Completed Univers ity of Oral, Trivalent 00:00:00 [facility] 1992 Completed [facility] 00:00:00 [facility] Heamophilus Influenza 1992 Completed Uni versity of B 00:00:00 [facility] Hib-HbOC 1992 Completed [facility] of 00:00:00 [facility] Poliovirus, Live, 1992 Completed Univers ity of Oral, Trivalent 00:00:00 [facility] DT 1992 Completed [facility] of 00:00:00 [facility] Heamophilus Influenza 1992 Completed Uni versity of B 00:00:00 [facility] Hib-HbOC 1992 Completed [facility] 00:00:00 [facility] Poliovirus, Live, 1992 Completed Univers ity of Oral, Trivalent 00:00:00 [facility] DTP 1992 Completed [facility] of 00:00:00 [facility] Heamophilus Influenza 1992 Completed Uni versity of B 00:00:00 [facility] Hib-HbOC 1992 Completed [facility] of 00:00:00 [facility] Poliovirus, Live, 1992 Completed Univers ity of Oral, Trivalent 00:00:00 [facility] DTP 1992 Completed [facility] of 00:00:00 [facility] Heamophilus Influenza 1992 Completed Uni versity of B 00:00:00 [facility] Hib-HbOC 1992 Completed [facility] of 00:00:00 [facility] Poliovirus, Live, 1992 Completed Univers ity of Oral, Trivalent 00:00:00 [facility] Vital Signs Vital Name Observation Time Observation Value Comments Source Systolic blood 2023-01-21 156 mm[Hg] University of pressure 23:13:33 [facility] Diastolic blood 2023-01-21 100 mm[Hg] University o f pressure 23:13:33 [facility] Heart rate 2023-01-21 88 /min University of 23:13:33 [facility] Respiratory rate 2023-01-21 20 /min University of 23:13:33 [facility] Oxygen saturation 2023-01-21 100 /min [facility] Arterial blood 23:13:33 [facility] by Pulse oximetry [place] Body height 2023-01-21 160 cm University of 18:44:00 [facility] Body weight 2023-01-21 69.854 kg University of 18:44:00 [facility] BMI 2023-01-21 27.28 kg/m2 University of 18:44:00 [facility] Body temperature 2023-01-21 37.11 Alisha University of 18:43:00 [facility] Systolic blood 2023-01-15 121 mm[Hg] University of pressure 18:01:00 [facility] Diastolic blood 2023-01-15 81 mm[Hg] University o f pressure 18:01:00 [facility] Heart rate 2023-01-15 83 /min University of 18:01:00 [facility] Respiratory rate 2023-01-15 16 /min [facility] of 18:01:00 [facility] Oxygen saturation 2023-01-15 97 /min University of in Arterial blood 18:01:00 [facility] by Pulse oxim[facility] Branch Body temperature 2023-01-15 36.89 Alisha University of 14:55:07 [facility] Body weight 2023-01-15 68.04 kg University of 13:47:00 [facility] BMI 2023-01-15 26.57 kg/m2 University of 13:47:00 [facility] Systolic blood 2023-01-15 131 mm[Hg] University of pressure 10:13:00 [facility] Diastolic blood 2023-01-15 83 mm[Hg] University o f pressure 10:13:00 [facility] Heart rate 2023-01-15 104 /min University of 10:13:00 [facility] Body temperature 2023-01-15 36.94 Alisha University of 10:13:00 [facility] Respiratory rate 2023-01-15 21 /min University of 10:13:00 [facility] Body height 2023-01-15 160 cm University of 10:13:00 [facility] Body weight 2023-01-15 68.04 kg University of 10:13:00 [facility] BMI 2023-01-15 26.57 kg/m2 University of 10:13:00 [facility] Oxygen saturation 2023-01-15 100 /min [place] [facility] in Arterial blood 10:13:00 [facility] Pulse oxim[facility] Branch Systolic blood 2022-12-31 128 mm[Hg] University of pressure 05:09:00 [facility] Diastolic blood 2022-12-31 79 mm[Hg] University o f pressure 05:09:00 [facility] Heart rate 2022-12-31 71 /min University of 05:09:00 [facility] Body temperature 2022-12-31 36.78 Alisha University of 05:09:00 [facility] Respiratory rate 2022-12-31 16 /min [facility] of 05:09:00 [facility] Body height 2022-12-31 160 cm University of 05:09:00 [facility] Body weight 2022-12-31 67.586 kg University of 05:09:00 [facility] BMI 2022-12-31 26.39 kg/m2 University of 05:09:00 [facility] Oxygen saturation 2022-12-31 100 /min [facility] in Arterial blood 05:09:00 [facility] Systolic blood 2022-12-22 132 mm[Hg] University of pressure 13:18:00 [facility] Diastolic blood 2022-12-22 92 mm[Hg] University o f pressure 13:18:00 [facility] Heart rate 2022-12-22 78 /min University of 13:18:00 [facility] Respiratory rate 2022-12-22 18 /min University of 13:18:00 [facility] Body height 2022-12-22 160 cm University of 13:18:00 [facility] Body weight 2022-12-22 69.4 kg University of 13:18:00 [facility] BMI 2022-12-22 27.10 kg/m2 University of 13:18:00 [facility] Systolic blood 2022-12-19 102 mm[Hg] University of pressure 10:00:00 [facility] Diastolic blood 2022-12-19 60 mm[Hg] University o f pressure 10:00:00 [facility] Heart rate 2022-12-19 85 /min University of 10:00:00 [facility] Respiratory rate 2022-12-19 13 /min [facility] of 10:00:00 [facility] Oxygen saturation 2022-12-19 96 /min University of in Arterial blood 10:00:00 [facility] shanice by Pulse oximetry Branch Body temperature 2022-12-19 36.28 Alisha University of 07:30:00 [facility] Body height 2022-12-19 160 cm University of 07:30:00 [facility] Body weight 2022-12-19 67.132 kg University of 07:30:00 [facility] BMI 2022-12-19 26.22 kg/m2 University of 07:30:00 [facility] Systolic blood 2022-12-15 125 mm[Hg] University of pressure 15:48:00 [facility] Diastolic blood 2022-12-15 77 mm[Hg] University o f pressure 15:48:00 [facility] Heart rate 2022-12-15 75 /min University of 15:48:00 [facility] Body height 2022-12-15 160 cm University of 15:48:00 [facility] Body weight 2022-12-15 68.448 kg University of 15:48:00 [facility] BMI 2022-12-15 26.73 kg/m2 University of 15:48:00 [facility] Oxygen saturation 2022-12-15 98 /min [facility] of in Arterial blood 15:48:00 [facility] shanice by Pulse oximetry Branch Systolic blood 2022-12-14 132 mm[Hg] University of pressure 08:04:00 [facility] Diastolic blood 2022-12-14 87 mm[Hg] University o f pressure 08:04:00 [facility] Heart rate 2022-12-14 83 /min [facility] of 08:04:00 [facility] Body temperature 2022-12-14 36.67 Alisha University of 08:04:00 [facility] Respiratory rate 2022-12-14 20 /min [facility] of 08:04:00 [facility] Body height 2022-12-14 160 cm University of 08:04:00 [facility] Body weight 2022-12-14 67.132 kg University of 08:04:00 [facility] BMI 2022-12-14 26.22 kg/m2 University of 08:04:00 [facility] Oxygen saturation 2022-12-14 97 /min [facility] of in Arterial blood 08:04:00 [facility] Pulse [facility] Branch Systolic blood 2022-11-03 143 mm[Hg] University of pressure 17:45:00 [facility] Diastolic blood 2022-11-03 89 mm[Hg] University o f pressure 17:45:00 [facility] Heart rate 2022-11-03 89 /min University of 17:45:00 [facility] Respiratory rate 2022-11-03 16 /min [facility] of 17:45:00 [facility] Oxygen saturation 2022-11-03 99 /min [facility] of in Arterial blood 17:45:00 [facility] Branch Body temperature 2022-11-03 36.61 Alisha University of 14:13:00 [facility] Body height 2022-11-03 160 cm University of 14:13:00 [facility] Body weight 2022-11-03 68.04 kg University of 14:13:00 [facility] BMI 2022-11-03 26.57 kg/m2 University of 14:13:00 [facility] Systolic blood 2022-10-28 115 mm[Hg] University of pressure 21:02:00 [facility] Diastolic blood 2022-10-28 69 mm[Hg] University o f pressure 21:02:00 [facility] Heart rate 2022-10-28 93 /min University of 21:02:00 [facility] Body temperature 2022-10-28 36.89 Alisha University of 21:02:00 [facility] Body height 2022-10-28 160 cm University of 21:02:00 [facility] Body weight 2022-10-28 70.308 kg University of 21:02:00 [facility] BMI 2022-10-28 27.46 kg/m2 University of 21:02:00 [facility] Oxygen saturation 2022-10-28 100 /min University of in Arterial blood 21:02:00 [facility] Pulse [facility]xim[facility] Branch Systolic blood 2022-10-13 133 mm[Hg] University of pressure 07:58:00 [facility] Diastolic blood 2022-10-13 72 mm[Hg] University o f pressure 07:58:00 [facility] Heart rate 2022-10-13 109 /min University 07:58:00 [facility] Body temperature 2022-10-13 36.78 Alisha [facility] 07:58:00 [facility] Respiratory rate 2022-10-13 16 /min University of 07:58:00 [facility] Body weight 2022-10-13 67.132 kg University of 07:58:00 [facility] BMI 2022-10-13 26.22 kg/m2 University of 07:58:00 [facility] Oxygen saturation 2022-10-13 99 /min [facility] of in Arterial blood 07:58:00 [facility] Pulse oxim[facility] Branch Systolic blood 2022-10-10 120 mm[Hg] [facility] of pressure 00:44:00 [facility] Diastolic blood 2022-10-10 82 mm[Hg] University o f pressure 00:44:00 [facility] Heart rate 2022-10-10 110 /min [facility] of 00:44:00 [facility] Body temperature 2022-10-10 36.33 Alisha University of 00:44:00 [facility] Respiratory rate 2022-10-10 18 /min [facility] of 00:44:00 [facility] Body height 2022-10-10 160 cm University of 00:44:00 [facility] Body weight 2022-10-10 67.132 kg University of 00:44:00 [facility] BMI 2022-10-10 26.22 kg/m2 University of 00:44:00 [facility] Oxygen saturation 2022-10-10 99 /min [facility] of in Arterial blood 00:44:00 [facility] shanice by Pulse oximetry Branch Systolic blood 2022-09-10 165 mm[Hg] [facility] of pressure 00:13:00 [facility] Diastolic blood 2022-09-10 99 mm[Hg] University o f pressure 00:13:00 [facility] Heart rate 2022-09-10 125 /min [facility] of 00:13:00 [facility] Body temperature 2022-09-10 36.61 Alisha University of 00:13:00 [facility] Respiratory rate 2022-09-10 20 /min [facility] of 00:13:00 [facility] Body weight 2022-09-10 65.772 kg University of 00:13:00 [facility] BMI 2022-09-10 25.69 kg/m2 University of 00:13:00 [facility] Oxygen saturation 2022-09-10 99 /min [facility] of in Arterial blood 00:13:00 [facility] by Pulse oximetry Branch Systolic blood 2022-08-18 134 mm[Hg] [facility] of pressure 22:36:00 [facility] Diastolic blood 2022-08-18 86 mm[Hg] University o f pressure 22:36:00 [facility] Heart rate 2022-08-18 100 /min University of 22:36:00 [facility] Body temperature 2022-08-18 37.11 Alisha University of 22:36:00 [facility] Respiratory rate 2022-08-18 20 /min University of 22:36:00 [facility] Body height 2022-08-18 160 cm University of 22:36:00 [facility] Body weight 2022-08-18 67.132 kg University of 22:36:00 [facility] BMI 2022-08-18 26.22 kg/m2 University of 22:36:00 [facility] Oxygen saturation 2022-08-18 100 /min [facility] in Arterial blood 22:36:00 [place] [facility] Systolic blood 2022-01-20 123 mm[Hg] [facility] 18:11:00 [facility] Diastolic blood 2022-01-20 85 mm[Hg] [facility] 18:11:00 [facility] Heart rate 2022-01-20 88 /min [facility] 18:11:00 [facility] Body temperature 2022-01-20 36.28 Alisha [facility] 18:11:00 [facility] Respiratory rate 2022-01-20 20 /min [facility] 18:11:00 [facility] Body height 2022-01-20 160 cm [facility] 18:11:00 [facility] Body weight 2022-01-20 66.225 kg [facility] 18:11:00 [facility] BMI 2022-01-20 25.86 kg/m2 [facility] 18:11:00 [facility] Oxygen saturation 2022-01-20 99 /min [facility] in Arterial blood 18:11:00 [facility] by Pulse [...] BP Systolic 2019-06-28 130 mm[Hg] Location: [facility]; [facility] 16:14:00 Position: Sitting BP Diastolic 2019-06-28 82 mm[Hg] Location: [facility] 16:14:00 Position: Sitting Height 2019-06-28 67 [...] ABDOMEN PELVIS W 2023-01-21 21:07:22 Evangelina Abad [facility] CONTRAST [facility] POCT TEST 2023-01-21 19:34:00 Gutierrez Monc[address] Uni [facility] LIPASE 2023-01-21 19:32:00 Gutierrez Moncada [facility] TROPONIN I 2023-01-21 19:32:00 Evangelina Abad [place] [facility] COMP. METABOLIC PANEL 2023-01-21 19:32:00 Gutierrez Moncada [facility] ([id number]) [facility] CBC WITH DIFF 2023-01-21 19:32:00 Gutierrez Moncada [facility] URINALYSIS 2023-01-21 19:32:00 Gutierrez Moncada [facility] Branch CONSENT/REFUSAL FOR 2023-01-21 18:36:13 Doctor Unassigned, No [facility] [place] [facility] TREATMENT Name Medical Branch LIPASE 2023-01-15 14:47:00 Luiza Lal [facility] Branch COMP. 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 2023-01-07 05:01:00 Doctor Unassigned, No [facility] [place] RECORDS Name Medical Branch EXTERNAL PROVIDER 2023-01-04 05:01:00 Doctor Unassigned, No [facility] [place] RECORDS Name Medical Branch CONSENT/REFUSAL FOR 2022-12-31 05:04:15 Doctor Unassigned, No [facility] [place] DI[facility]NOS[facility] AND TREATMENT Name Medical Branch CT ANGIOGRAPHY 2022-12-30 17:15:00 Amrit Ma [facility] CORONARIES WITHOUT Medical Bran h CARDIAC CALCIUM SCORING HB CREATININE 2022-12-30 16:24:00 Amrit Ma [facility] SERUM/BLOOD FOR IMAGING Medical Branch CONSENT/REFUSAL FOR 2022-12-30 15:17:01 Doctor Unassigned, No [facility] [place] DIAGNOSIS AND TREATMENT Name Medical Branch EXTERNAL PROVIDER 2022-12-29 05:01:00 Doctor Unassigned, No [facility] [place] RECORDS Name Medical Branch AUTHORIZATION TO RELEASE 2022-12-21 05:01:00 Doctor Unassigned, No [facility] PHI TO [facility] Name Medical Branch CT ANGIOGRAM CHEST 2022-12-19 09:28:16 Iza Medina [facility] TROPONIN I 2022-12-19 08:40:00 Iza Medina [facility] D-DIMER 2022-12-19 08:40:00 Iza Medina [facility] CONSENT/REFUSAL FOR 2022-12-19 07:30:10 [facility] Name [facility] D-DIMER 2022-12-14 10:47:00 Iza Medina [facility] TROPONIN I 2022-12-14 10:16:00 Iza Medina [facility] LIPASE 2022-12-14 08:31:00 Iza Medina [facility] TROPONIN I 2022-12-14 08:31:00 Iza Medina [facility] COMP. METABOLIC PANEL 2022-12-14 08:31:00 Iza Medina [facility] ([id number]) [facility] CBC WITH DIFF 2022-12-14 08:31:00 Iza Medina [facility] THYROID STIMULATING 2022-12-14 08:31:00 Amrit Ma [facility] HORMONE [facility] NOTICE OF PRIVACY 2022-12-14 07:50:02 Doctor Unassigned, No [facility] CONSENT/REFUSAL FOR 2022-12-14 07:49:31 [facility] Name [facility] URINALYSIS 2022-11-03 15:27:00 Claudia Dotson [place] [facility] URINE DRUG (IMMUNOASSAY) 2022-11-03 15:27:00 Claudia Dotson [facility] SCREEN W/O REFLEX TEST, SERUM 2022-11-03 14:38:00 Cluadia Dotson [facility] COMP. METABOLIC PANEL 2022-11-03 14:38:00 Claudia Dotson [facility] ([id number]) [facility] CBC WITH DIFF 2022-11-03 14:38:00 Claudia Dotson [place] [facility] D-DIMER 2022-11-03 14:38:00 Claudia Dotson [facility] o [facility] Medical Branch CONSENT/REFUSAL FOR 2022-11-03 14:04:36 Doctor [...] Branch MRI LUMBAR SPINE WO 2022-10-07 00:35:00 [facility] CONTRAST MRI CERVICAL SPINE WO 2022-10-07 00:22:00 [facility] CONTRAST CONSENT/REFUSAL FOR 2022-09-10 00:07:30 Doctor Unassigned, No [facility] [place] DIAGNOSIS AND TREATMENT Name Medical Branch CONSENT/REFUSAL FOR 2022-08-18 22:20:24 Doctor Unassigned, No [facility] [place] DIAGNOSIS AND TREATMENT Name Medical Branch CT SPINE EXTERNAL STUDY 2021-11-28 20:02:53 [facility] [address] SPINE EXTERNAL STUDY 2021-11-28 19:57:[address] [facility] [address] SPINE EXTERNAL STUDY 2021-11-28 19:52:18 [facility] REFERRAL- 2021-11-21 05:01:00 Doctor Unassigned, No [facility] [place] REQUEST/RESPONSE Name Medical Branch MRI SPINE EXTERNAL STUDY 2021-10-09 18:17:21 [facility] [QL] CBC (INCLUDES 2020-02-16 00[facility]00:00 [facility] EMB 2020-02-14 00:00:00 [facility] - Affirm VPIII 2020-02-14 00:00:00 [facility] [...] [facility] Transvaginal and Pelvic Doppler [id number] [facility] of [facility] of [facility] section low transverse Plan of Care Planned Activity Planned Date Details Comments Source Future Scheduled 2022-12-30 Pneumococcal Vaccine: [facility] Test 10:15:19 Pediatrics (0 to 5 Years) and At-Risk Patients (6 to 64 Years) (1 - PCV) [code = Pneumococcal Vaccine: Pediatrics (0 to 5 Years) and At-Risk Patients (6 to 64 Years) (1 - PCV)] Future Scheduled 2022-12-30 Hepatitis C screening [facility] Test 10:15:19 (procedure) [code = 467663929] Future Scheduled 2022-12-30 Screening for [facility] Test 10:15:19 malignant neoplasm of cervix (procedure) [code = 040058177] Future Scheduled 2022-12-30 COVID-19 VACCINE (3 - [facility] Test 10:15:19 Booster for Pfizer series) [code = COVID-19 VACCINE (3 - Booster for Pfizer series)] Future Scheduled 2022-12-30 [facility]ACCINE [facility] 10:15:19 [code = INFLUENZA VACCINE] Future Scheduled 2022-12-30 Pneumococcal Vaccine: [facility] Test 10:15:19 Pediatrics (0 to 5 Years) and At-Risk Patients (6 to 64 Years) (1 - PCV) [code = Pneumococcal Vaccine: Pediatrics (0 to 5 Years) and At-Risk Patients (6 to 64 Years) (1 - PCV)] Future Scheduled 2022-12-30 Hepatitis C screening [facility] Test 10:15:19 (procedure) [code = [id number]] Future Scheduled 2022-12-30 Screening for [facility] Test 10:15:19 malignant neoplasm of cervix (procedure) [code = 569633729] Future Scheduled 2022-12-30 COVID-19 VACCINE (3 - [facility] Test 10:15:19 Booster for Pfizer series) [code = COVID-19 VACCINE (3 - Booster for Pfizer series)] Future Scheduled 2022-12-30 [facility]ZA [facility]ACCINE [facility] 10:15:19 [code = INFLUENZA VACCINE] Future Scheduled 2022-12-30 Pneumococcal Vaccine: [facility] Test 10:15:19 Pediatrics (0 to 5 Years) and At-Risk Patients (6 to 64 Years) (1 - PCV) [code = Pneumococcal Vaccine: Pediatrics (0 to 5 Years) and At-Risk Patients (6 to 64 Years) (1 - PCV)] Future Scheduled 2022-12-30 Hepatitis C screening [facility] Test 10:15:19 (procedure) [code = [id number]] Future Scheduled 2022-12-30 Screening for [facility] Test 10:15:19 malignant neoplasm of cervix (procedure) [code = 617237688] Future Scheduled 2022-12-30 COVID-19 VACCINE (3 - [facility] Test 10:15:19 Booster for Pfizer series) [code = COVID-19 VACCINE (3 - Booster for Pfizer series)] Future Scheduled 2022-12-30 [facility]FLUENZA VACCINE [facility] Test 10:15:19 [code = INFLUENZA VACCINE] Future Scheduled 2022-08-02 Pneumococcal Vaccine: [facility] Test 11:23:36 Pediatrics (0 to 5 Years) and At-Risk Patients (6 to 64 Years) (1 - PCV) [code = Pneumococcal Vaccine: Pediatrics (0 to 5 Years) and At-Risk Patients (6 to 64 Years) (1 - PCV)] Future Scheduled 2022-08-02 Hepatitis C screening [facility] Test 11:23:36 (procedure) [code = 343150378] Future Scheduled 2022-08-02 [facility]ening for [facility] Test 11:23:36 malignant neoplasm of cervix (procedure) [code = 855631327] Future Scheduled 2022-08-02 COVID-19 VACCINE (3 - [facility] Test 11:23:36 Booster for Pfizer series) [code = COVID-19 VACCINE (3 - Booster for Pfizer series)] Future Scheduled 2022-08-02 INFLUENZA VACCINE Method [facility] Test 11:23:36 [code = INFLUENZA VACCINE] Future Scheduled 2022-07-24 Pneumococcal Vaccine: [facility] Test 21:51:51 Pediatrics (0 to 5 Years) and At-Risk Patients (6 to 64 Years) (1 - PCV) [code = Pneumococcal Vaccine: Pediatrics (0 to 5 Years) and At-Risk Patients (6 to 64 Years) (1 - PCV)] Future Scheduled 2022-07-24 Hepatitis C screening [facility] Test 21:51:51 (procedure) [code = 897349699] Future Scheduled 2022-07-24 [facility] Test 21:51:51 malignant neoplasm of cervix (procedure) [code = 664598400] Future Scheduled 2022-07-24 COVID-19 VACCINE (3 - [facility] Test 21:51:51 Booster for Pfizer series) [code = COVID-19 VACCINE (3 - Booster for Pfizer series)] Future Scheduled 2022-07-24 INFLUENZA VACCINE Method [facility] Test 21:51:51 [code = INFLUENZA VACCINE] Future Scheduled 2022-07-15 Pneumococcal Vaccine: [facility] Test 15:03:03 Pediatrics (0 to 5 Years) and At-Risk Patients (6 to 64 Years) (1 - PCV) [code = Pneumococcal Vaccine: Pediatrics (0 to 5 Years) and At-Risk Patients (6 to 64 Years) (1 - PCV)] Future Scheduled 2022-07-15 Hepatitis C screening [facility] Test 15:03:03 (procedure) [code = 644812366] Future Scheduled 2022-07-15 [facility] Test 15:03:03 malignant neoplasm of cervix (procedure) [code = 356537331] Future Scheduled 2022-07-15 COVID-19 VACCINE (3 - [facility] Test 15:03:03 Booster for Pfizer series) [code = COVID-19 VACCINE (3 - Booster for Pfizer series)] Future Scheduled 2022-07-15 INFLUENZA VACCINE [facility] Test 15:03:03 [code = INFLUENZA VACCINE] Future Scheduled 2022 Pneumococcal Vaccine: [facility] Test 09:54:03 Pediatrics (0 to 5 Years) and At-Risk Patients (6 to 64 Years) (1 - PCV) [code = Pneumococcal Vaccine: Pediatrics (0 to 5 Years) and At-Risk Patients (6 to 64 Years) (1 - PCV)] Future Scheduled 2022 Hepatitis C screening [facility] Test 09:54:03 (procedure) [code = 901697037] Future Scheduled 2022 [facility] Test 09:54:03 malignant neoplasm of cervix (procedure) [code = 962854420] Future Scheduled 2022 COVID-19 VACCINE (3 - [facility] Test 09:54:03 Booster for Pfizer series) [code = COVID-19 VACCINE (3 - Booster for Pfizer series)] Future Scheduled 2022 INFLUENZA VACCINE Method [facility] Test 09:54:03 [code = INFLUENZA VACCINE] Encounters Start End Encounter Admission Attending Care Care Encounter Source Date/Time Date/Time Type Type Clinicians Facility Department ID 2021-07-06 Emergency [facility] [id number] [facility]04 Emergency [facility] [id number] [facility]:22[facility] 2021-07-04 Emergency [facility] [id number] Univers 10:48:55 [facility] 2021-01-09 Inpatient [facility] MAL[facility]SA [id number] [facility] 10:52:00 [id number] [facility] 2020-12-27 Inpatient [facility] MALISSA [id number] [facility] 20:29:00 65 [facility] 2020-12-26 Inpatient CLAUDETTE Escobar, [facility] ENDO [id number] [facility] 10:00:00 Rik 01 [facility] 2020-12-22 Inpatient [facility] [id number] [facility] 23:08:15 49 [facility] 2020-08-23 Inpatient [facility] MALISSA [id number] [facility] 09:10:00 26 [facility] 2020-08-05 Inpatient [facility] MALISSA [id number] [facility] 20:55:00 [id number] [facility] 2020-02-20 Outpatient KRISTIN, [facility] [id number] M H 10:04:01 LISHA 2023-01-21 2023-01-21 Emergency Pamela ABAD [facility] ERT [id number] Univers 13:46:00 18:49:[address] [facility] 2023-01-21 2023-01-21 Emergency [facility] 1.2.043.291 [id number] Univers 13:46:00 18:49:00 [facility] 350.1.13.10 it y of [place] 4.2.7.2.686 [facility] [phone] [address] ([facility]) 2023-01-21 2023-01-21 Outpatient Anton WAGNER [facility] [id number] Univers 13:30:00 13:30:00 SMITHA [facility] 2023-01-15 2023-01-15 [facility] [id number] Univers 08:50:00 13:10:00 LUIZA [facility] 2023-01-15 2023-01-15 Emergency [facility] 1.2.174.558 [id number] Univers 08:50:00 13:10:00 Luiza GUERRERO 350.1.13.10 i ty rey [place] 4.2.7.2.686 [facility] [id number] [address] 2023-01-15 2023-01-15 Outpatient KENZIE VAZQUEZ [facility] [id number] Univers 09:00:00 09:00:[address] [facility] 2023-01-15 2023-01-15 Emergency X JAGRUTI [facility] ERT [id number] Univers 05:24:00 06:28:[address] [facility] 2023-01-15 2023-01-15 Emergency [facility] 1.2.456.687 [id number] Univers 05:24:00 06:28:00 Wakili S [place] 350.1.13.10 ity of [place] 4.2.7.2.686 [facility] [id number] [facility] [address] 2023-01-12 2023-01-12 Outpatient R FELISHA [facility] [id number] Univers 10:30:00 10:30:00 ИВАН ity of [facility] 2023-01-08 2023-01-08 Outpatient R FRNACESCA [facility] [id number] Univers 08:00:00 08:00:00 SENDIL ity of [facility] 2023-01-07 2023-01-07 Orders Doctor SUDHA 1.2.840.114 [id number] Univers 00:00:00 00:00:00 Only Unassigned, ALEM 350.1.13.10 ity of [place] [facility] 4.2.7.2.686 Zay as [phone] [facility] [address]9 [address] 2023-01-04 2023-01-04 Orders Doctor SUDHA 1.2.840.114 [id number] Univers 00:00:00 00:00:00 Only Unassigned, ALEM 350.1.13.10 ity of [place] [facility] 4.2.7.2.686 Zay as [phone] [facility] [address]9 [address] 2023-01-04 2023-01-04 Telephone Felisha [facility] 1.2.590.489 [id number] Univers 00:00:00 00:00:00 [facility] 350.1.13.10 it y of [place] CANCER 4.2.7.2.686 [facility] - [phone] Med ical [facility] [address] 2023-01-01 2023-01-01 [facility]phone [facility] 1.2.840.11 4 [id number] Univers 00:00:00 00:00:00 Jorge GANDARA 350.1.13.10 it y of WOMEN'S 4.2.7.2.686 [facility] [phone] [facility] [address] 2022-12-31 2022-12-31 Emergency X Jasmin SILVER [facility] ERT [id number] Univers 00:13:00 01:07:00 ity of [facility] 2022-12-31 2022-12-31 Emergency Jg, Jasmin [facility] 1.2.840.114 10 [id number] Univers 00:13:00 01:07:00 Filomena GUERRERO 350.1.13.10 i ty of [facility] 4.2.7.2.686 [facility] [phone] [facility] [address] 2022-12-31 2022-12-31 Telephone [facility] 1.2.459.269 [id number] Univers 00:00:00 00:00:00 Sendil Ismael GUERRERO 350.1.13.10 ity of [place] [place] [facility] 4.2.7.2.686 [facility] PROFESSIO [phone] [facility] 059 Branch [facility] 2022-12-30 2022-12-30 [facility] 1.2.840.114 [id number] Univers 10:38:24 23:59:00 Encounter Amrit GUERRERO 350.1.13.10 ity of [place] 4.2.7.2.686 [facility] [phone] [facility] 801 [address] 2022-12-30 2022-12-30 Outpatient R [facility] [id number] Univers 10:38:24 23:59:[address] [facility] 2022-12-30 2022-12-30 Emergency X [facility] ERT [id number] Univers 10:21:00 10:33:[address] [facility] 2022-12-30 2022-12-30 Emergency [facility] 1.2.840.114 10 [id number] Univers 10:21:00 10:33:00 Awilda GUERRERO 350.1.13.10 ity of [place] 4.2.7.2.686 [facility] [id number] [place] [id number] Branch 2022-12-30 2022-12-30 Telephone Sammie [facility] [place] 1.2.840.11 4 [id number] Univers 00:00:00 00:00:00 Jorge GANDARA 350.1.13.10 it y of WOMEN'S 4.2.7.2.686 [facility] HEALTH [id number] [facility] [address] 2022-12-29 2022-12-29 Outpatient R JORGE CHANDRA [facility] B [id number] Univers 13:30:00 13:30:00 JORGE CHANDRA ity of [facility] 2022-12-29 2022-12-29 Orders Doctor SUDHA 1.2.840.114 [id number] Univers 00:00:00 00:00:00 Only Unassigned, ALEM 350.1.13.10 ity of [place] [facility] 4.2.7.2.686 Zay as [phone] [facility] [address]9 [address] 2022-12-29 2022-12-29 Telephone Felisha NCGORDON 1.2.594.974 [id number] [id number] Univers 00:00:00 00:00:00 Иван HEALTH 350.1.13.10 it y of [place] 4.2.7.2.[place] - [phone] [facility] [address] 2022-12-28 2022-12-28 Telephone Felisha [facility] 1.2.839.470 [id number] [id number] Univers 00:00:00 00:00:00 Иван HEALTH 350.1.13.10 it y of [place] CANCER 4.2.7.2.686 [facility] [phone] Med [facility] [address] 2022-12-25 2022-12-25 Patient Graciela [facility] 1.2.840.114 [id number] Univers 00:00:00 00:00:00 Secure [facility] HEALTH 350.1.13.10 ity of [place] 4.2.7.2.686 Zay as BLANCA?BLEA [phone] Mi denilson [address] MEDICAL OFFICE BUILDING 2022-12-23 2022-12-23 Telephone Sammie NCGORDON MERNA 1.2.840.11 4 [id number] Univers 00:00:00 00:00:00 Jorge GANDARA 350.1.13.10 it y of [place].2.[place] [facility] [phone] [facility] 134 [address] 2022-12-23 2022-12-23 Patient Gurpreet [facility] 1.2.840.114 [id number] Univers 00:00:00 00:00:00 Secure Msg Norberto GUERRERO 350.1.13.10 ity of [place] [facility] 4.2.7.2.686 [place] [facility] [phone] Mi denilson [facility] 134 [facility] 2022-12-22 2022-12-22 Disintegrator [facility], Ang - Db [facility] 1.2.840.1 14 [id number] Univers 09:30:00 09:45:00 Visit Jorge Chandra [facility] 350.1.13.1 0 ity of [place] 4.2.7.2.686 Zay as BLANCA?BLEA [phone] Mi denilson [facility] 353 [facility] OFFICE BUILDING 2022-12-22 2022-12-22 Office Sammie [facility] 1.2.840.114 [id number] Univers 08:00:00 08:53:38 Visit Jorge GANDARA 350.1.13.10 it y of W[place].2.7.2.[place] [facility] [phone] [facility] [address] 2022-12-22 2022-12-22 Outpatient R JORGE CHANDRA [facility] B [id number] Univers 08:00:00 08:53:38 JORGE CHANDRA ity of [facility] 2022-12-21 2022-12-21 Orders Doctor SUDHA 1.2.840.114 [id number] Univers 00:00:00 00:00:00 Only Unassigned, ALEM 350.1.13.10 ity of [place] [facility] 4.2.7.2.686 Zay as [phone] [facility] [address]9 [address] 2022-12-19 2022-12-19 Emergency X [facility] ERT [id number] Univers 02:32:00 05:47:00 IZA ity of [facility] 2022-12-19 2022-12-19 Emergency [facility] 1.2.323.864 [id number] Univers 02:32:00 05:47:00 Iza GUERRERO 350.1.13.10 ity of [place] [facility] 4.2.7.2.686 [place] [phone] [address] 2022-12-18 2022-12-18 Outpatient R KENZIE BADILLO [facility] [id number] Univers 09:45:00 09:45:00 ity of [facility] 2022-12-17 2022-12-17 Telephone Kenzie Badillo [facility] 1.2.840.114 [id number] Univers 00:00:00 00:00:00 E HEALTH 350.1.13.10 it y of [place] 4.2.7.2.686 [place] - [phone] [facility] 201 [address] 2022-12-15 2022-12-15 Outpatient R [facility] [id number] Univers 11:00:00 11:30:[address] [facility] 2022-12-15 2022-12-15 Office [facility] 1.2.840.114 [id number] Univers 11:00:00 11:30:30 Visit Sendil Ismael GUERRERO 350.1.13.10 ity of [place] [facility] 4.2.7.2.686 [place] [phone] Mi dical NAL [address] [place] [address] 2022-12-15 2022-12-15 Telephone [facility] 1.2.598.145 [id number] Univers 00:00:00 00:00:00 Sendil Ismael GUERRERO 350.1.13.10 ity of [place] 4.2.7.2.[place] [phone] Mi dicwv NAL [address] [place] [address] 2022-12-14 2022-12-14 Emergency X [facility] ERT [id number] Univers 03:03:00 07:05:[address] [facility] 2022-12-14 2022-12-14 Emergency [facility] 1.2.791.893 [id number] Univers 03:03:00 07:05:00 Wajanetteli S [place] 350.1.13.10 ity of [place] 4.2.7.2.686 [place] [id number] [address] 2022-11-03 2022-11-03 Emergency X [facility] ERT [id number] Univers 08:15:00 12:05:00 CLAUDIA ity of [facility] 2022-11-03 2022-11-03 Emergency [facility] 1.2.001.230 [id number] Univers 08:15:00 12:05:00 Claudia GUERRERO 350.1.13.10 i ty of [place] 4.2.7.2.686 [place] [id number] [facility] [address] 2022-10-28 2022-10-28 Outpatient R GRACIELA [facility] [id number] Univers 15:00:00 15:28:11 LINDA ity of [facility] 2022-10-28 2022-10-28 Office Graciela [facility] 1.2.840.114 [id number] Univers 15:00:00 15:28:11 Visit [facility] 350.1.13.10 it y of [place] 4.2.7.2.686 Zay as BLANCA?BLEA [id number] [address] MEDICAL OFFICE [facility] 2022-10-28 2022-10-28 Orders Doctor SUDHA 1.2.840.114 [id number] Univers 00:00:00 00:00:00 Only Unassigned, ALEM 350.1.13.10 ity of [place] [facility] 4.2.7.2.686 Zay as [phone] [facility] [address] 2022-10-28 2022-10-28 Abstract Graciela [facility] 1.2.840.114 [id number] Univers 00:00:00 00:00:00 Linda [facility] 350.1.13.10 it y of [place] 4.2.7.2.686 Zay as BLANCA?BLEA [phone] [address] MEDICAL OFFICE [facility] 2022-10-28 2022-10-28 Patient Henry [facility] 1.2.840.114 [id number] Univers 00:00:00 00:00:00 Outreach Charlotte Wei [facility] 350.1.13.10 i ty of [place] 4.2.7.2.686 Zay as BLANCA?BLEA [phone] [address] MEDICAL OFFICE BUILDING 2022-10-28 2022-10-28 Telephone [facility] 1.2.299.347 [id number] [id number] Univers 00:00:00 00:00:00 Phylicia ISH 350.1.13.10 i ty of [place] 4.2.7.2.[place] [phone] Mi dical NAL [address] [facility] 2022-10-13 2022-10-13 Emergency X JAGRUTI [facility] ERT [id number] Univers 01:56:00 02:55:[address] [facility] 2022-10-13 2022-10-13 [facility] 1.2.749.019 [id number] [id number] Univers 01:56:00 02:55:00 Iaz GUERRERO 350.1.13.10 ity of [place] 4.2.7.2.[place] [phone] [place] 7201[address] [place] 2022-10-09 2022-10-09 Emergency X [facility] ERT [id number] Univers 18:46:00 19:00:00 [facility]-10-09 2022-10-09 [facility] 1.2.933.396 1014 [id number] Univers 18:46:00 19:00:00 Luiza Avila ISH 350.1.13.10 i ty of [place] 4.2.7.2.[place] [phone] [facility] [address] 2022-10-09 2022-10-09 Orders Doctor SUDHA 1.2.840.114 [id number] Univers 00:00:00 00:00:00 Only Unassigned, ALEM 350.1.13.10 ity of [place] [facility] 4.2.7.2.686 Zay as [phone] [facility] [address] 2022-10-06 2022-10-06 [facility], 1.2.840.1 [id number] [id number] Methodi 17:35:51 23:59:00 Encounter Jorge Luis 11842.1.1 997 s t 3.430.2.7 Hospit a .3.507207 l .8 2022-10-06 2022-10-06 [facility], 1.2.840.1 [id number] Methodi 17:35:51 23:59:00 Encounter Jorge Luis 84337.1.1 997 s t 3.430.2.7 Hospit a .3.840173 l .8 2022-10-06 2022-10-06 [facility], 1.2.840.1 [id number] 232 [id number] Methodi 17:35:36 23:59:00 Encounter Jorge Luis 97758.1.1 999 s t 3.430.2.7 Hospit a .3.573297 l .8 2022-10-06 2022-10-06 [facility], 1.2.840.1 [id number] 744 [id number] Methodi 17:35:36 23:59:00 Encounter Jorge Luis 42972.1.1 999 s t 3.430.2.7 Hospit a .3.243431 l .8 2022-10-06 2022-10-06 Travel 1.2.840.1 1.2.213.443 7794 [id number] Methodi 00:00:00 00:00:[address] 3.430.2.7 0.2.7.3.698 Ho spita .3.243713 084.8 l .8 2022-10-06 2022-10-06 Travel 1.2.840.1 1.2.909.512 9859 219933 Methodi 00:00:00 00:00:[address] 3.430.2.7 0.2.7.3.698 Ho spita .3.428747 084.8 l .8 2022-09-09 2022-09-09 Emergency [facility] ERT [id number] Univers 18:15:00 19:35:[address] [facility] 2022-09-09 2022-09-09 Emergency [facility] 1.2.840.114 [id number] Univers 18:15:00 19:35:00 Naty GUERRERO 350.1.13.10 i ty of [place] [facility] 4.2.7.2.686 [facility] [phone] [facility] [address] 2022-08-18 2022-08-18 Emergency X [facility] ERT [id number] Univers 16:38:00 17:44:[address] [facility] 2022-08-18 2022-08-18 Emergency [facility] 1.2.720.138 [id number] 1453 Univers 16:38:00 17:44:00 Bebo GUERRERO 350.1.13.10 i ty of [place] [facility] 4.2.7.2.686 [facility] [phone] [facility] [address] 2022-08-07 2022-08-08 Inpatient EL Nayeli, [facility].01 [id number] [facility] 14:50:00 12:01:00 Gianna [facility] 2022-08-03 2022-08-03 Emergency EM Oanderu, [facility] AERS [id number] [facility] 14:26:00 16:02:00 Roro 86 [facility] 2022-07-23 2022-07-23 [facility], 1.2.840.1 [id number] [id number] Methodi 10:30:00 10:30:00 Encounter Jorge Luis 87664.1.1 209 s t 3.430.2.7 Hospit a .3.987098 l .8 2022-07-23 2022-07-23 Telephone Gabi, 1.2.840.1 [id number] 2099 [id number] Methodi 00:00:00 00:00:[address] 3.430.2.7 Hospit a .3.338279 l .8 2022-07-23 2022-07-23 Telephone Gabi, 1.2.840.1 [id number] 2099 [id number] Methodi 00:00:00 00:00:[address] 3.430.2.7 Hospit a .3.261320 l .8 2022-07-07 2022-07-07 Outpatient LONA DILL LONA [id number] Lona 10:45:00 10:45:00 ELBERT alvarez 2022-07-06 2022-07-06 Travel 1.2.840.1 1.2.843.366 4549 [id number] Methodi 00:00:00 00:00:[address] 3.430.2.7 0.2.7.3.698 Ho spita .3.178389 084.8 l .8 2022-07-06 2022-07-06 Travel 1.2.840.1 1.2.486.317 8227 [id number] Methodi 00:00:00 00:00:[address] 3.430.2.7 0.2.7.3.698 Ho spita .3.929701 084.8 l .8 2022-06-15 2022-06-16 [facility], 1.2.840.1 [id number] 2099 [id number] Methodi 14:15:00 11:08:59 Visit Jorge Luis 07511.1.[address] 3.430.2.7 Hospit a .3.756629 l .8 2022-06-15 2022-06-16 [facility], 1.2.840.1 [id number] 2099 [id number] Methodi 14:15:00 11:08:59 Visit Jorge Luis 04126.1.[address] 3.430.2.7 Hospit a .3.237212 l .8 2022-06-15 2022-06-15 [facility], 1.2.840.1 [id number] 271 [id number] Methodi 14:15:15 23:59:00 Encounter Jorge Luis 65078.1.1 971 s t 3.430.2.7 Hospit a .3.515200 l .8 2022-06-15 2022-06-15 [facility], 1.2.840.1 [id number] 971 [id number] Methodi 14:15:15 23:59:00 Encounter Jorge Luis 25618.1.1 971 s t 3.430.2.7 Hospit a .3.345838 l .8 2022-06-15 2022-06-15 [facility], 1.2.840.1 [id number] 571 [id number] Methodi 14:15:13 23:59:00 Encounter Jorge Luis 99481.1.1 963 s t 3.430.2.7 Hospit a .3.344008 l .8 2022-06-15 2022-06-15 [facility], 1.2.840.1 [id number] 491 [id number] Methodi 14:15:13 23:59:00 Encounter Jorge Luis 25098.1.1 963 s t 3.430.2.7 Hospit a .3.181415 l .8 2022-06-15 2022-06-15 [facility], 1.2.840.1 [id number] 639 [id number] Methodi 14:13:36 14:14:00 Encounter Jorge Luis 00129.1.1 680 s t 3.430.2.7 Hospit a .3.091842 l .8 2022-06-15 2022-06-15 [facility], 1.2.840.1 [id number] 782 [id number] Methodi 14:13:36 14:14:00 Encounter Jorge Luis 93610.1.1 680 s t 3.430.2.7 Hospit a 3.368323 l .8 2022-06-15 2022-06-15 [facility], 1.2.840.1 [id number] 915 [id number] Methodi 14:12:01 14:12:01 Encounter Jorge Luis 66742.1.1 418 s t 3.430.2.7 Hospit a .3.240487 l .8 2022-06-15 2022-06-15 [facility], 1.2.840.1 [id number] 709 [id number] Methodi 14:12:01 14:12:01 Encounter Jorge Luis 33728.1.1 418 s t 3.430.2.7 Hospit a .3.808405 l .8 2022-06-15 2022-06-15 Orders [place], 1.2.840.1 [id number] 2100 792614 Methodi 00:00:00 00:00:00 Only Jorge Luis 39801.1.[address] 3.430.2.7 Hospit a .3.492016 l .8 2022-06-15 2022-06-15 Travel 1.2.840.1 1.2.154.110 3361 578245 Methodi 00:00:00 00:00:[address] 3.430.2.7 0.2.7.3.698 Ho spita .3.645682 084.8 l .8 2022-06-15 2022-06-15 Orders Sathya, 1.2.840.1 [id number] 2100 [id number] Methodi 00:00:00 00:00:00 Only Jorge Luis 94551.1.[address] 3.430.2.7 Hospit a .3.353448 l .8 2022-06-15 2022-06-15 Travel 1.2.840.1 1.2.177.832 8351 [id number] Methodi 00:00:00 00:00:[address] 3.430.2.7 0.2.7.3.698 Ho spita .3.395455 084.8 l .8 2022-06-11 2022-06-11 Travel 1.2.840.1 1.2.574.184 8956 723679 Methodi 00:00:00 00:00:[address] 3.430.2.7 0.2.7.3.698 Ho spita .3.738508 084.8 l .8 2022-06-11 2022-06-11 Travel 1.2.840.1 1.2.178.987 9296 032221 Methodi 00:00:00 00:00:[address] 3.430.2.7 0.2.7.3.698 Ho spita .3.102616 084.8 l .8 2022-02-17 2022-02-17 Refill Vivian, 1.2.840.1 [id number] 2100 [id number] Methodi 00:00:00 00:00:[address] Andrea 3.430.2.7 Hospit a .3.731644 l .8 2022-02-17 2022-02-17 Refill Vivian, 1.2.840.1 [id number] 2100 604019 Methodi 00:00:00 00:00:[address] Andrea 3.430.2.7 Hospit a .3.119250 l .8 2022-01-20 2022-01-20 Office Vivian, 1.2.840.1 [id number] 2099 [id number] Methodi 13:00:00 13:57:49 Visit Jessi 13099.1.[address] Andrea 3.430.2.7 Hospit a .3.064624 l .8 2022-01-20 2022-01-20 Telephone GEORGIE Kelley 1.2.840.114 9 [id number] [facility] 00:00:00 00:00:00 Michi MIJARESPEC 350.1.13.10 ity of IALTY 4.2.7.2.686 [facility] [phone] [address] [facility]ABETES CLINIC 2022-01-20 2022-01-20 Travel 1.2.840.1 1.2.785.278 3799 023377 Methodi 00:00:00 00:00:[address] 3.430.2.7 0.2.7.3.698 Ho spita .3.622689 084.8 l .8 2022-01-19 2022-01-19 Telephone GEORGIE Borges 1.2.840.114 [id number] Univers 00:00:00 00:00:00 Jessi MULTISPEC 350.1.13.10 ity of Andrea SÁNCHEZ 4.2.7.2.686 [facility] [phone] [facility] AND CONSTABLE [address] DIABETES CLINIC 2021-11-21 2021-11-21 Orders Doctor SUDHA 1.2.840.114 [id number] Univers 00:00:00 00:00:00 Only Unassigned, ALEM 350.1.13.10 ity of [place] [facility] 4.2.7.2.686 [facility] [phone] [facility] 009 Branch 2021-11-17 2021-11-18 Emergency X [facility] ERT [id number] Univers 19:45:00 00:44:[address] [facility] 2021-11-17 2021-11-18 [facility] 1.2.317.026 [id number] 8574 Univers 19:45:00 00:44:00 Donta GARNERJUAREZ 350.1.13.10 i ty [facility] 4.2.7.2.686 [facility] [phone] [facility] 084 Branch 2021-11-16 2021-11-16 Emergency X [facility] ERT [id number] Univers 20:28:00 21:58:[address] [facility] 2021-11-16 2021-11-16 [facility] 1.2.648.622 1455 5340 Univers 20:28:00 21:58:00 Dejanette Evelin GARNERJUAREZ 350.1.13.10 ity [facility] 4.2.7.2.686 [facility] [phone] [facility] 084 Branch 2021-10-02 2021-10-02 Emergency EM Nwoye, HCACL MALISSA [id number] [facility] 16:59:00 20:32:00 Hung 240706 Cl [facility] 2021-10-02 2021-10-02 Emergency EM EDDOC[facility] [id number] [facility] 16:59:00 20:32:00 GENERIC 76 [facility] 2021-10-01 2021-10-01 Petr Borges, 1.2.840.1 [id number] 2100 121529 Methodi 00:00:00 00:00:[address] Andrea 3.430.2.7 Hospit a .3.578377 l .8 2021-09-30 2021-09-30 [facility] [id number] Univers 13:31:00 16:34:00 [facility] 2021-09-30 2021-09-30 [facility] 1.2.840.114 90 [id number] Univers 13:31:00 16:34:00 Awilda GUERRERO 350.1.13.10 ity [facility] 4.2.7.2.686 [facility] [phone] [address] 2021-08-14 2021-08-14 Refill Gutierres, 1.2.840.1 [id number] 21 [id number] Methodi 00:00:00 00:00:[address] 3.430.2.7 Hospit a .3.403010 l .8 2021-08-12 2021-08-12 Refill Gutierres, 1.2.840.1 [id number] 21 [id number] Methodi 00:00:00 00:00:[address] 3.430.2.7 Hospit a .3.538590 l .8 2021-07-23 2021-07-23 Emergency X [facility] ERT [id number] 08 Univers 16:14:00 17:06:[address] [facility] 2021-07-23 2021-07-23 Emergency [facility] 1.2.932.054 5016 5383 Univers 16:14:00 17:06:00 ISH 350.1.13.10 i ty [facility] 4.2.7.2.686 [facility] [phone] [address] 2021-07-23 2021-07-23 Emergency EM SALENA Coles AERS [id number] [facility] 13:58:00 14:24:00 Burak 064259 [facility] 2021-07-23 2021-07-23 Emergency EM SALENA Coles HCACL [id number] [facility] 13:58:00 14:24:00 Burak Alva [facility] 2021-07-10 2021-07-10 Telemedici Vivian, 1.2.840.1 [id number] 2 [id number] Methodi 08:30:00 09:02:51 ne Hunter 85573.1.[address] Andrea 3.430.2.7 Hospit a .3.950512 l .8 2021-07-09 2021-07-09 Travel 1.2.840.1 1.2.415.417 3326 385781 Methodi 00:00:00 00:00:[address] 3.430.2.7 0.2.7.3.698 Ho spita .3.305794 084.8 l .8 2021-06-13 2021-06-13 [facility]patient [facility] 85522 88536 [place] 00:00:00 00:00:00 JESSI 976 Method i 2021-04-17 2021-04-17 Emergency E LOLITA WASSERMAN SE MED 7515 16:40:00 19:42:00 [facility] 2021-03-30 2021-03-30 Emergency E SATURNINO [facility] MED 7514 MHBL 00:46:00 06:26:00 [facility] 2021-01-15 2021-01-15 Outpatient Luz, [facility] OUTD G81 6242-20 [facility] 08:00:00 08:00:00 Rik 556024 [facility] 2021-01-09 2021-01-09 Emergency E LOLITA WASSERMAN SE MED 7513 12:29:00 16:41:00 [facility] 2020-12-26 2020-12-26 Emergency [facility] 064 [id number] 09 [place] 00:00:00 00:00:00 039 Method i 2020-12-21 2020-12-22 Emergency Nerisga, [facility] 1.2.075.[address] [facility] 22:42:00 02:02:00 Iza Guerrero 350.1.13.10 Bhumi 4.2.7.2.686 [facility] [phone] [facility] 084 Branch 2020-12-21 2020-12-22 [facility] 1.2.980.934 0960 7932 22:42:00 02:02:00 Iza Avila Ish 350.1.13.10 [place] 4.2.7.2.686 [place] [id number] 08 2020-12-21 2020-12-21 Orders Doctor HALEY 1.2.840.114 [id number] 30 Univers 00:00:00 00:00:00 Only Unassigned, ALEM 350.1.13.10 ity of [place] [facility] 4.2.7.2.[address] [place] [address] [phone] [facility] 009 Branch 2020-12-21 2020-12-21 Orders Doctor HALEY 1.2.840.114 [id number] 30 00:00:00 00:00:00 Only Unassigned, ALEM 350.1.13.10 [place] [facility] 4.2.7.2.68 [id number] 009 2020-08-15 2020-08-19 Inpatient [facility] [id number] [facility] 14:57:00 06:49:15 39 [facility] 2020-08-15 2020-08-15 Emergency [facility] 1.2.770.824 0118 8387 Univers 03:26:00 06:17:00 Donta Guerrero 350.1.13.10 i ty of [place] 4.2.7.[address] [place] [id number] 2020-08-15 2020-08-15 Emergency [facility] ERT [id number] Univers 03:26:00 06:17:00 DONTA ity of [facility] 2020-08-15 2020-08-15 Emergency [facility] 1.2.199.756 8588 8387 03:26:00 06:17:00 Donta Guerrero 350.1.13.10 [place] 4.2.7.2.686 [place] [id number] 08 2020-04-13 2020-04-13 Emergency [facility] 1.2.840.114 77 [id number] Univers 19:38:00 23:40:00 Awilda Guerrero 350.1.13.10 ity of [place] 4.2.7.2.686 [facility] [phone] [address] 2020-04-13 2020-04-13 Emergency Elisa, [facility] 1.2.840.114 77 [id number] 19:38:00 23:40:00 Awilda Guerrero 350.1.13.10 [place] 4.2.7.2.686 [place] [phone] [facility] 2020-04-13 2020-04-13 Orders Doctor HALEY 1.2.840.[id number] [facility] 00:00:00 00:00:00 Only Unassigned, ALEM 350.1.13.10 ity of [place] [facility] 4.2.7.2.686 Zay as [phone] [address] 2020-04-13 2020-04-13 Orders Doctor HALEY 1.2.840.114 [id number] 77 00:00:00 00:00:00 Only Unassigned, ALEM 350.1.13.10 [place] [facility] 4.2.7.2.686 [id number] 009 2020-04-10 2020-04-10 Emergency Pope, [facility] 1.2.042.[address] [facility] 15:39:00 19:05:00 Bebo Guerrero 350.1.13.10 i ty of [place] 4.2.7.2.686 [facility] [phone] [address] 2020-04-10 2020-04-10 Emergency Pope, [facility] 1.2.363.320 6642 5068 15:39:00 19:05:00 Bebo Guerrero 350.1.13.10 [place] 4.2.7.2.686 [place] [id number] [facility] 2020-04-10 2020-04-10 Orders Doctor HALEY 1.2.840.[id number] [place] [address] 00:00:00 00:00:00 Only Unassigned, ALEM 350.1.13.10 ity of [place] [facility] 4.2.7.2.686 Zay as [id number] [address] 2020-04-10 2020-04-10 Orders Doctor HALEY 1.2.840.114 [id number] 10 00:00:00 00:00:00 Only Unassigned, ALEM 350.1.13.10 [place] [facility] 4.2.7.2.686 [id number] 009 2020-03-11 2020-03-11 Dusty FOSTER [facility] Obstetrics 677 45104 [place] 10:00:00 10:00:00 t; Gayatri HUSAIN and Quynh FOSTER Gynecology rubén HUSAIN M.D. [facility] 2020-02-28 2020-02-28 [facility] [id number] 86 [place] 08:30:00 08:30:00 t; Gayatri HUSAIN ans ASHA, M.D. 2020-02-23 2020-02-23 [facility] [id number] 74 [place] 11:00:00 11:00:00 t; Gayatri HUSAIN ans ASHA, M.D. 2020-02-16 2020-02-16 Dusty [facility] Ob[facility] 673 73563 [place] 14:15:00 14:15:00 t; Yue ROCHA i, M.D. Gynecology Dinah Crawford M.D. Clinic 2020-02-15 2020-02-15 Emergency E AMELIE, MHSE MHSE 7510 20:06:00 21:19:00 [facility] 2020-02-14 2020-02-14 Dusty MATAMOROS [facility] Obstetrics 6679 2985 [place] 09:00:00 09:00:00 t; SAMIR MATAMOROS and Phy sici BETHANY, M.D. Gynecology rubén Mendieta [facility] 2020-01-31 2020-01-31 Dusty AGRAWAL [facility] Obstetrics 667 18697 [place] 08:30:00 08:30:00 t; Yue WATKINS i, D.O. Gynecology Dinah [facility] 2019-12-20 2019-12-20 Dusty GOSS [facility] Orthopedics 65 [id number] [place] 09:30:00 09:30:00 t; mayo CIDman Quynh GOSS M.D. Sports Jewel Lazo M.D. [facility] 2019-12-20 2019-12-20 Outpatient Raju_P MMG G [id number] 020 [place] 04:51:00 04:51:00 04[facility] 2019-12-18 2019-12-18 Emergency E TABBY, MHSE MHSE 7500 MH 20:54:00 21:40:00 [facility] l 2019-10-11 2019-10-12 Emergency X [facility] ERT [id number] Univers 21:52:36 00:17:[address] [facility] 2019-10-11 2019-10-12 Emergency [facility] 1.2.335.529 7869 3555 Univers 21:52:36 00:17:00 Dontabhavin Guerrero 350.1.13.10 i ty [facility] 4.2.7.2.686 [facility] [phone] [facility] [address] [place] [address] 2019-10-11 2019-10-12 [facility] 1.2.356.732 1858 3555 21:52:36 00:17:00 Donta Guerrero 350.1.13.10 [place] 4.2.7.2.686 [place] [id number] [facility] 2019-10-11 2019-10-11 Orders Doctor SUDHA 1.2.840.114 [id number] Univers 00:00:00 00:00:00 Only Unassigned, ALEM 350.1.13.10 ity of [place] [facility] 4.2.7.2.686 [facility] [phone] [address] 2019-10-11 2019-10-11 Orders Doctor SDUHA 1.2.840.114 [id number] 54 00:00:00 00:00:00 Only Unassigned, [facility]LE[facility]13.10 [facility] 4.2.7.2.686 [id number] 009 2019-06-28 2019-06-28 Appointmen MARIBEL GRUBBS Obstetrics 580 02251 [place] 16:00:00 16:00:00 t; Gayatri CAVANAUGH and Ph ysPraveen Hung Continuity M.D. [facility] 2019-05-12 2019-05-12 Nurse Visit, Bautista Nurse [facility] 1.2 .840.114 [id number] Univers 10:44:42 12:05:57 Visit Perri Pérez EXECUTIVE CREATIVE DIRECTOR 350.1.13.10 ity of REGIONAL 4.2.7.2.686 Zay as MATERNAL [id number] Med ical & CHILD [address] [place] [address] 2019-05-12 2019-05-12 Nurse Visit, [facility] 1.2.840.114 [id number] 60 10:44:42 12:05:57 Visit Bautista EXECUTIVE CREATIVE DIRECTOR 350.1.13.10 Nurse REGIONAL 4.2.7.2.686 MATERNAL [id number] & CHILD [address] [place] [address] 2019-05-10 2019-05-10 Telephone [facility] 1.2.840.[id number] [facility] 00:00:00 00:00:00 Perri Olivier EXECUTIVE CREATIVE DIRECTOR 350.1.13.10 it y of REGIONAL 4.2.7.2.686 Zay as MATERNAL [id number] Med ical & CHILD [address] [place] [address] 2019-05-10 2019-05-10 Telephone [facility] 1.2.840.114 71 [id number] 00:00:00 00:00:00 Perri Olivier EXECUTIVE CREATIVE DIRECTOR 350.1.13.10 REGIONAL 4.2.7.2.686 MATERNAL [phone] & CHILD [address] [place] [address] 2019-04-03 2019-04-03 Patient ROBIN Mcfadden 1.2.840.[address] [facility] 00:00:00 00:00:00 Secure Msg Ivet Y HEALTH 350.1.13.10 ity of CLIN[place]2.[place] [phone] [address] 2019-04-03 2019-04-03 Patient ROBIN Mcfadden 1.2.840.114 705 25938 00:00:00 00:00:00 Secure Msg Ivet Y HEALTH 350.1.13.10 CLINICS 4.2.7.2.686 [id number] [facility] 2019-03-07 2019-03-07 Patient Doctor HALEY 1.2.840.114 [id number] 20 Univers 00:00:00 00:00:00 Secure Msg Unassigned, ALEM 350.1.13.10 ity of [place] [facility] 4.2.7.2.686 Zay as [id number] [address] 2019-03-07 2019-03-07 Patient Doctor SUDHA Johnston2.840.114 [id number] 20 00:00:00 00:00:00 Secure Msg Unassigned, ALEM 350.1.13.10 [place] [facility] 4.2.7.2.686 [id number] [facility] 2019-02-27 2019-02-27 Patient Doctor SUDHA Johnston2.840.114 [id number] Univers 00:00:00 00:00:00 Secure Msg Unassigned, ALEM 350.1.13.10 ity of [place] [facility] 4.2.7.2.686 Zay as [phone] [address] 2019-02-27 2019-02-27 Patient Doctor SUDHA Johnston2.840.114 [id number] 58 00:00:00 00:00:00 Secure Msg Unassigned, ALEM 350.1.13.10 [place] [facility] 4.2.7.2.686 [id number] 044 2018-10-13 2018-10-13 AppointMARIBEL Puente [facility] [id number] 058 [place] 14:30:00 14:30:00 t; Jennifer FINK i, M.D. ans JORDAN, M.D. 2018-09-07 2018-09-[address] [facility] [id number] 15:00:00 10:19:03 2018-09-07 2018-09-07 AppointMARIBEL Rae Form Tamper [id number] [place] 15:00:00 15:00:00 t; BONITA KRISHNA Phys ici KANDACE, M.D. ans M.D. Results Test Description Test Time Test Comments Results Result Comments Source TROPONIN I 2023-01-21 20:27:33 Test Item Value Reference Range Interpretation Comme nts TROPONIN I (test code = 5990270781) <=0.034 ANGI (test code = ANGI) Reference [...] biotin. Lab Interpretation (test code = Normal 53626-4) [facility] Met[facility] [id number] 20:18:51 Test Item Value Reference Range Interpretation Comments NA (test code = 132 mmol/L 135-145 L 7153924934) K (test code = 4.1 mmol/L 3.5-5.0 3744612305) CL (test code = 98 mmol/L 98-108 3992935236) CO2 TOTAL (test code = 26 mmol/L 23-31 2428939128) AGAP (test code = 8 2-16 5728737730) BUN (test code = 12 mg/dL 7-23 5239069433) GLUCOSE (test code = 79 mg/dL 70-110 6381746067) CREATININE (test code = 0.58 mg/dL 0.50-1.04 2814107952) TOTAL BILI (test code = 0.4 mg/dL 0.1-1.5 9852755564) CALCIUM (test code = 9.0 mg/dL 8.6-10.6 8944592220) T PROTEIN (test code = 7.4 g/dL 6.3-8.2 0112460909) ALBUMIN (test code = 4.5 g/dL 3.5-5.0 6397551042) ALK PHOS (test code = 62 U/L 34-122 1979024496) ALTv (test code = 23 U/L 5-35 1742-6) AST(SGOT) (test code = 31 U/L 13-40 1273860597) eGFR (test code = 122.1 mL/min/1.73m2 8529861143) ANGI (test code = ANGI) Association of [...] tests). Lab Interpretation Abnormal (test code = 90572-1) [facility], [id number] 20:18:51 Test Item Value Reference Range Interpretation Comments LIPASE (test code = 0414657281) 186 U/L 0-220 Lab Interpretation (test code = Normal 72457-0) [facility] with [id number] 19:39:40 Test Item Value Reference Range Interpretation Comments WBC (test code = 5.62 See_Comment [Automated 2309-2) message] The sy stem which generated this result transmitted reference range : 4.30 - 11.10 10*3/?L. The reference range was not used to interpret this result as normal/abnormal . RBC (test code = 4.24 See_Comment [Automated 332-4) message] The sy stem which generated this [...] RDW-SD (test code = 44.1 fL 39.0-49.9 84206-3) RDW-CV (test code = 13.2 % 12.0-15.5 788-0) PLT (test code = 277 See_Comment [Automated 777-3) message] The sy stem which generated this result transmitted reference range : 166 - 358 10*3/ ?L. The reference r dagoberto was not used to interpret this result as normal/abnormal . MPV (test code = 8.5 fL 9.5-12.9 L 32178-5) NRBC/100 WBC (test 0.0 See_Comment [Automat ed code = 6857304414) message] The system which generated this result transmitted reference range : 0.0 - 10.0 /100 WBCs. The refer ence range was not u sed to interpret th is result as normal/abnormal . NRBC x10^3 (test code See_Comment [Auto mated = 2129201384) message] The s ystem which generated this result transmitted reference range : 10*3/?L. The reference range was not used to interpret this result as normal/abnormal . GRAN MAT (NEUT) % 46.4 % (test code = 770-8) IMM GRAN % (test code 0.90 % = 9392506728) LYMPH % (test code = 38.6 % 736-9) MONO % (test code = 12.5 % 5905-5) EOS % (test code = 0.7 % 713-8) BASO % (test code = 0.9 % 706-2) GRAN MAT x10^3(ANC) 2.61 10*3/uL 1.88-7.09 (test code = 3288063051) IMM GRAN x10^3 (test 0.05 10*3/uL 0.00-0.06 code = 3685499296) LYMPH x10^3 (test code 2.17 10*3/uL 1.32-3.29 = 731-0) MONO x10^3 (test code 0.70 10*3/uL 0.33-0.92 = 742-7) EOS x10^3 (test code = 0.04 10*3/uL 0.03-0.39 711-2) BASO x10^3 (test code 0.05 10*3/uL 0.01-0.07 = 704-7) Lab Interpretation Abnormal (test code = 18606-8) [facility] [id number] 19:34:00 Test Item Value Reference Range Interpretation Comments POCT PREG (test code = 1605) Negative On board controls acceptable with Yes C Line (test code = 3574) POCT PREG LOT # (test code = 3575) [id number] POCT PREG TEST DATE (test 04/13/2024 code = 3576) Lab Interpretation (test code = Normal 50585-2) [facility] METABOLIC PANEL (27947)2023-01-15 15:36:17 Test Item Value Reference Range Interpretation Comments NA (test code = 139 mmol/L 135-145 7868613771) K (test code = 4.7 mmol/L 3.5-5.0 3814195427) CL (test code = 103 mmol/L 98-108 6066455405) CO2 TOTAL (test code 28 mmol/L 23-31 = 9177848761) AGAP (test code = 8 2-16 4713189943) BUN (test code = 14 mg/dL 7-23 5870516729) GLUCOSE (test code = 75 mg/dL 70-110 3345272900) CREATININE (test code 0.72 mg/dL 0.50-1.04 = 9150789187) TOTAL BILI (test code 0.4 mg/dL 0.1-1.1 = 5421123923) CALCIUM (test code = 9.4 mg/dL 8.6-10.6 5515031956) T PROTEIN (test code 7.4 g/dL 6.3-8.2 = 1877978604) ALBUMIN (test code = 4.5 g/dL 3.5-5.0 8973222215) ALK PHOS (test code = 58 U/L 34-122 6322956377) ALTv (test code = 22 U/L 5-35 2-6) AST(SGOT) (test code 24 U/L 13-40 = 6642130829) eGFR (test code = 95.1 mL/min/1.73m2 2515039172) ANGI (test code = ANGI) Association of [...] or urine or abnormalities in imaging tests). [facility]23-[facility]12 15:36:17 Test Item Value Reference Range Interpretation Comments LIPASE (test code = 2473259328) 93 U/L 0-220 Lab Interpretation (test code = Normal 54458-7) [facility] WITH [id number] 15:19:14 Test Item Value Reference Range Interpretation Comments WBC (test code = 7.99 See_Comment [Automated 6690-2) message] The sy stem which generated this result transmitted reference range : 4.30 - 11.10 10*3/?L. The reference range was not used to interpret this result as normal/abnormal . RBC (test code = 4.24 See_Comment [Automated 789-8) message] The sy stem [...] RDW-SD (test code = 42.5 fL 39.0-49.9 37502-4) RDW-CV (test code = 12.9 % 12.0-15.5 788-0) PLT (test code = 317 See_Comment [Automated 777-3) message] The sy stem which generated this result transmitted reference range : 166 - 358 10*3/ ?L. The reference r dagoberto was not used to interpret this result as normal/abnormal . MPV (test code = 8.8 fL 9.5-12.9 L 06054-5) NRBC/100 WBC (test 0.0 See_Comment [Automat ed code = 4911546821) message] The system which generated this result transmitted reference range : 0.0 - 10.0 /100 WBCs. The refer ence range was not u sed to interpret th is result as normal/abnormal . NRBC x10^3 (test code See_Comment [Auto mated = 2011280272) message] The s ystem which generated this result transmitted reference range : 10*3/?L. The reference range was not used to interpret this result as normal/abnormal . GRAN MAT (NEUT) % 55.7 % (test code = 770-8) IMM GRAN % (test code 0.30 % = 7215475534) LYMPH % (test code = 34.0 % 736-9) MONO % (test code = 8.1 % 5905-5) EOS % (test code = 1.0 % 713-8) BASO % (test code = 0.9 % 706-2) GRAN MAT x10^3(ANC) 4.45 10*3/uL 1.88-7.09 (test code = 9954079497) IMM GRAN x10^3 (test 0.00-0.06 code = 5240742332) LYMPH x10^3 (test code 2.72 10*3/uL 1.32-3.29 = 731-0) MONO x10^3 (test code 0.65 10*3/uL 0.33-0.92 = 742-7) EOS x10^3 (test code = 0.08 10*3/uL 0.03-0.39 711-2) BASO x10^3 (test code 0.07 10*3/uL 0.01-0.07 = 704-7) Lab Interpretation Abnormal (test code = 75216-1) [facility] [id number] 16:38:09 Test Item Value Reference Range Interpretation Comments POCT Creatinine (test code = 0.7 mg/dL 0.5-1.9 0678468527) Lab Interpretation (test code = Normal 15172-4) [facility] [id number] 17:16:01 Test Item Value Reference Range Interpretation Comments TSH (test code = 3.96 See_Comment [Automated message] 6481932444) The system [employer] generated this result transmitted ref erence range: 0.45 - 4 .70 mIU/L. The refe rence range was not u sed to interpret this result as normal/abnor mal. Lab Interpretation (test Normal code = 21142-6) [facility] Houston[facility]-[id number] 11:33:33 Test Item Value Reference Interpretation Comments Range D-DIMER (test code = See_Comment [Autom ated 5175429756) message] The system which generated this result [...] diagnosis. Lab Interpretation Normal (test code = 27558-0) [facility] [id number] 10:57:27 Test Item Value Reference Range Interpretation Comments TROPONIN I (test code = 0.012 ng/mL <=0.034 3062337627) ANGI (test code = ANGI) Reference (Normal) [...] biotin. Lab Interpretation Normal (test code = 04284-1) [facility] [id number] 09:04:18 Test Item Value Reference Range Interpretation Comments TROPONIN I (test code = 0.010 ng/mL <=0.034 7851494218) ANGI (test code = ANGI) Reference (Normal) [...] biotin. Lab Interpretation Normal (test code = 97663-0) [facility] WITH [id number] 09:03:38 Test Item Value Reference Range Interpretation Comments WBC (test code = 10.76 See_Comment [Automated 2390-2) message] The sy stem which generated this result transmitted reference range : 4.30 - 11.10 10*3/?L. The reference range was not used to interpret this result as normal/abnormal . RBC (test code = 4.19 See_Comment [Automated 789-8) message] The sy stem [...] (test code = 36.7 fL 39.0-49.9 L 44052-2) RDW-CV (test code = 11.6 % 12.0-15.5 L 788-0) PLT (test code = 317 See_Comment [Automated 777-3) message] The sy stem which generated this result transmitted reference range : 166 - 358 10*3/ ?L. The reference r dagoberto was not used to interpret this result as normal/abnormal . MPV (test code = 8.8 fL 9.5-12.9 L 39418-7) NRBC/100 WBC (test 0.0 See_Comment [Automat ed code = [id number]) message] The system which generated this result transmitted reference range : 0.0 - 10.0 /100 WBCs. The refer ence range was not u sed to interpret th is result as normal/abnormal . NRBC x10^3 (test code See_Comment [Auto mated = [id number]) message] The s ystem which generated this result transmitted reference range : 10*3/?L. The reference range was not used to interpret this result as normal/abnormal . GRAN MAT (NEUT) % 49.3 % (test code = 770-8) IMM GRAN % (test code 0.50 % = [id number]) LYMPH % (test code = 42.6 % 736-9) MONO % (test code = 6.3 % 5905-5) EOS % (test code = 0.6 % 713-8) BASO % (test code = 0.7 % 706-2) GRAN MAT x10^3(ANC) 5.32 10*3/uL 1.88-7.09 (test code = 4310948195) IMM GRAN x10^3 (test 0.05 10*3/uL 0.00-0.06 code = [id number]) LYMPH x10^3 (test code 4.58 10*3/uL 1.32-3.29 H = 731-0) MONO x10^3 (test code 0.68 10*3/uL 0.33-0.92 = 742-7) EOS x10^3 (test code = 0.06 10*3/uL 0.03-0.39 711-2) BASO x10^3 (test code 0.07 10*3/uL 0.01-0.07 = 704-7) Lab Interpretation Abnormal (test code = 11487-0) [facility]30560[facility]2022-12-14 08:52:54 Test Item Value Reference Range Interpretation Comments NA (test code = 137 mmol/L 135-145 4415251115) K (test code = 3.9 mmol/L 3.5-5.0 [id number]) CL (test code = 103 mmol/L 98-108 7368287611) CO2 TOTAL (test code 25 mmol/L 23-31 = 0178122496) AGAP (test code = 9 2-16 1318218231) BUN (test code = 14 mg/dL 7-23 2273716407) GLUCOSE (test code = 88 mg/dL 70-110 2714737998) CREATININE (test code 0.69 mg/dL 0.50-1.04 = 3039720307) TOTAL BILI (test code 0.4 mg/dL 0.1-1.1 = 7041175706) CALCIUM (test code = 9.5 mg/dL 8.6-10.6 1801059780) T PROTEIN (test code 7.8 g/dL 6.3-8.2 = 9320406505) ALBUMIN (test code = 4.9 g/dL 3.5-5.0 2888924542) ALK PHOS (test code = 59 U/L 34-122 3907041726) ALTv (test code = 19 U/L 5-35 2-6) AST(SGOT) (test code 23 U/L 13-40 = 9967981277) eGFR (test code = 99.9 mL/min/1.73m2 2584925829) ANGI (test code = ANGI) Association of [...] or urine or abnormalities in imaging tests). [facility] 08:52:34 Test Item Value Reference Range Interpretation Comments LIPASE (test code = 6585707667) 70 U/L 0-220 Lab Interpretation (test code = Normal 00638-7) [facility] HoustonD-[id number] 15:45:47 Test Item Value Reference Interpretation Comments Range D-DIMER (test code = See_Comment [Autom ated 8935588663) message] The system which generated this result [...] diagnosis. Lab Interpretation Normal (test code = 65537-7) [facility], [id number] 15:07:51 Test Item Value Reference Range Interpretation Comments PREG SERUM (test code Negative = 9500444045) ANGI (test code = ANGI) Less than 10 IU/L. ?If low titer or ectopic is suspected, resubmit specimen in 48-72 hours. [facility] HoustonCOM. METABOLIC PANEL (51895)2022-11-03 15:05:35 Test Item Value Reference Range Interpretation Comments NA (test code = 138 mmol/L 135-145 4226276820) K (test code = 4.4 mmol/L 3.5-5.0 2108114693) CL (test code = 104 mmol/L 98-108 9093740919) CO2 TOTAL (test code = 25 mmol/L 23-31 0464261498) AGAP (test code = 9 2-16 1841984098) BUN (test code = 8 mg/dL 7-23 2277414104) GLUCOSE (test code = 100 mg/dL 70-110 2218962083) CREATININE (test code = 0.68 mg/dL 0.50-1.04 3310887486) TOTAL BILI (test code = 0.6 mg/dL 0.1-1.3 8514747132) CALCIUM (test code = 9.3 mg/dL 8.6-10.6 3843836147) T PROTEIN (test code = 8.2 g/dL 6.3-8.2 5741159980) ALBUMIN (test code = 5.1 g/dL 3.5-5.0 H 2103541303) ALK PHOS (test code = 57 U/L 34-122 0949112947) ALTv (test code = 21 U/L 5-35 1742-6) AST(SGOT) (test code = 29 U/L 13-40 8167182665) eGFR (test code = 101.6 mL/min/1.73m2 9996203533) ANGI (test code = ANGI) Association of [...] tests). Lab Interpretation Abnormal (test code = 22094-9) [facility] WITH [id number] 14:50:54 Test Item Value Reference Range Interpretation Comments WBC (test code = 8.23 See_Comment [Automated 6690-2) message] The sy stem which [...] (test code = 36.4 fL 39.0-49.9 L 68806-2) RDW-CV (test code = 11.2 % 12.0-15.5 L 788-0) PLT (test code = 384 See_Comment H [Automated 777-3) message] The sy stem which generated this result transmitted reference range : 166 - 358 10*3/ ?L. The reference r dagoberto was not used to interpret this result as normal/abnormal . MPV (test code = 8.4 fL 9.5-12.9 L 97185-7) NRBC/100 WBC (test 0.0 See_Comment [Automat ed code = 9205958123) message] The system which generated this result transmitted reference range : 0.0 - 10.0 /100 WBCs. The refer ence range was not u sed to interpret th is result as normal/abnormal . NRBC x10^3 (test code See_Comment [Auto mated = 5981508200) message] The s CodeRytetem which generated this result transmitted reference range : 10*3/?L. The reference range was not used to interpret this result as normal/abnormal . GRAN MAT (NEUT) % 47.0 % (test code = 770-8) IMM GRAN % (test code 0.20 % = 0478515540) LYMPH % (test code = 44.0 % 736-9) MONO % (test code = 6.6 % 5905-5) EOS % (test code = 1.1 % 713-8) BASO % (test code = 1.1 % 706-2) GRAN MAT x10^3(ANC) 3.87 10*3/uL 1.88-7.09 (test code = 9041096857) IMM GRAN x10^3 (test 0.00-0.06 code = 1884357478) LYMPH x10^3 (test code 3.62 10*3/uL 1.32-3.29 H = 731-0) MONO x10^3 (test code 0.54 10*3/uL 0.33-0.92 = 742-7) EOS x10^3 (test code = 0.09 10*3/uL 0.03-0.39 711-2) BASO x10^3 (test code 0.09 10*3/uL 0.01-0.07 H = 704-7) Lab Interpretation Abnormal (test code = 99532-4) [facility] Test Item Value Reference Range Interpretation Comments SURGICAL (test code = SR) R UN DATE: 08/10/22 [facility] PAGE [facility] RUN TIME: 1649 Specimen Inquiry RUN USER: INTERFACE P ATIENT: LONA MARIE LOC: [place] U #: [id number] AGE/SX: 32/F ROOM: [facility] RE08/07/22REG DR: Gianna Tyler MD : [birth year] BED: A DIS: 08/08/22 STATUS: DIS Keira TLOC: SPEC #: [id number] RECD: 08/07/22 STATUS: MIKI MAI #: [id number] LAURYN: 08/07/[address] [facility] [address]: Gianna Tyler MD ENTERED: 08/07/22 SP TYPE: SURGICAL OTHR DR: No Primary or Family PhysicianORDERED: ANATOMIC SPEC/4, SPEC TRACK, 73441/4 COPIES TO: No Primary or Family Physician Gianna Tyler MD [address] [place] [address], [address] [address] PROCEDURES: 08227 (08/07/22) TISSUES: A. BREAST, EXCISION OF DISCRETE [...] Inquiry RUN USER: INTERFACE S PEC #: [id number] PATIENT: LONA MARIE #[id number] (Continued) GROSS DESCRIPTION (Continued) Ink code: Hancock-duct surface; black-remainder of the specimen. B. Received in formalin labeled with Patient's name, SAPNA MI and "right breast upper innerquadrant mass"; consists [...] Fragment 3.XZ 08/07/22 Technical component performed at [facility],[address], [place] [address] Unless gross only, the diagnosis is based [...] BREAST MASS. ---- Signed SIGNATURE ON FILE Suzi Norwood 08/10/22 1649 END OF REPORT CBC W/AUTO [id number] 14:24:00 Test Item Value Reference Range Interpretation [...] NORMAL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 this score. (Auto) Prescriptions Current Visit Scripts Dicyclomine (Bentyl) 20 MG PO QID Dicyclomine (Bentyl) 20 MG PO QID #30 TABS Ondansetron Odt (Zofran Odt) 4 MG PO Q6H PRN PRN NAUSEA/VOMITING Ondansetron Odt (Zofran Odt) 4 MG PO Q6H PRN WV N NAUSEA/VOMITING #15 TABS Patient Instructions Abdominal [...] physician or other designated or consulting phys alexx as outlined in the discharge instructions. The [...] symptoms should prompt an immediate return to [facility] or the closest emergency department or a call to 1. Electronically Signed by Jayme Rodríguez MD on at 0016 RPT #:[id number] END OF REPORT 2020-12-22 22:03:00-00:00 [id number] [place] [address] PATIENT NAME: LONA MARIE ADMIT DATE: ACCOUNT NO: [id number] ROOM NO: AGE: 30 REPORT TYPE: eELECTROCARDIOGRAM SEX: F ADMITTING PHYSICIAN: ATTENDING PHYSICIAN: Order: [id number] Test Reason : Test Date/Time Stamp: WedDec [...] ECGs available Confirmed by LIBRADO MAS MD ([id number]) on 12/24/19 5:40:11 PM Referred By: Jayme Rodríguez Confirmed by:LIBRADO MAS MD Electronically Signed by Librado Mas MD on 0 12/23/20 at 2477 PATIENT NAME: LONA MARIE ACCOUNT #: [id number] 2020-08-25 11:44:00-00:00 [id number] [facility] [address] [place] [address] PATIENT NAME: LONA MARIE ADMIT DATE: ACCOUNT NO: [id number] ROOM NO: P.0724 AGE: 30 REPORT TYPE: [...] It appears she has been seen by VIDEO EDITOR at [facility] to follow up may be warranted also. Dictated By: Naheed Taylor DO WT: PN:KARLIE/RADHA/SUSANNA Conf#: [id number]/DID#: [id number] Authenticated by Naheed Taylor DO On 11:59:25 AM PATIENT NAME: LONA MARIE [id number] at 1159 PATIENT NAME: LONA MARIE [id number] 2020-08-25 11:42:00-00:00 [id number] [facility] [address] [place] [address] PATIENT NAME: LONA MARIE ADMIT DATE: ACCOUNT NO: [id number] ROOM NO: [facility] AGE: 30 REPORT TYPE: CONSULTATION SEX: [...] repor uche dark stools. She was at [facility] and w as transferred here to Dr. [...] uncertain etiology . PATIENT NAME: LONA MARIE [id number] PLAN: I discussed the case with Dr. Riaz guerra. She was able to eat, although she does have vomiting and nausea reported. Encourag ed to use the hydrocodone. We will see how she does. If she can tolerate p.o., the plan is for her to have outpatient workup. She has been seen by VIDEO EDITOR at [facility], Dr. Escobar, the manager relationship. She may need urology als o. Dictated By: Naheed Taylor DO WT: CON:KARLIE//NTS Conf#: [id number]/DID#: [id number] Authenticated by Naheed Taylor DO On 11:59:26 AM at 1159 PATIENT NAME: LONA MARIE [id number] 2020-08-23 13:16:00-00:00 [id number] [place] [address] PATIENT NAME: LONA MARIE ADMIT DATE: ACCOUNT NO: [id number] [facility] 30 REPORT TYPE: ENDOSCOPY REPORT SEX: F ADMITTING PHYSICIAN:Olegario Srivastava MD ATTENDING PHYSICIAN:Olegario Srivastava MD [facility] Gastroenterology Patient Name: Cynthia Zamorano Attending MD: Rik giron MD Procedure Date: 08/23/2020 1:16 PM 80 Date of : 06/07 Admit Type: Inpatient Age: 30 Room: Room 2 Gender: Female Note Status: Finalized Procedure: Upper GI endoscopy Pre Procedure Diagnosis: Epigastric abdominal pa in Assistants: Rik Escobar MD, Crystal Auguste (Nurse), Jennifer Varela, Disintegrator Feeder, Whitney vora MD Referring MD: Jose Luis [...] the anesthesiologist, the anesthetis t and the nuclear medicine technician in the pre-procedure area in the [...] was to use monitored anesthesia care (MAC). Immediatel y prior to administration of medications, the pat ient was re-assessed for adequacy to receive sedativ es. The heart rate, respiratory rate, oxygen saturations, blood pressure, adequacy of pulmon chiara ventilation, and response to care were monitore d PATIENT NAME: LONA MARIE [id number] throughout the procedure. The physical status o f the patient was re-assessed after the procedure . The benefits, risks, and alternatives to the procedure were discussed and informed consent w as obtained from the patient. I've assesed the pat ient on this date and reviewed the medical history, drug history, and previous anesthesia experience. Af ter obtaining informed consent, the scope was pass ed under direct vision. Throughout the procedure, the [...] examined duodenum. Recommendation: - Return patient to [facility] for ongoing care. - Full liquid diet. - Continue present medications. - Await pathology results. Rik Escobar MD Rik Escobar MD 08/23/2020 2:00:54 PM This report has been signed electronically. Number of Addenda: 0 Note Initiated On: 08/23/2020 1:16 PM Procedure Date: 08/23/2020 1:16:08 PM Provation {[id number]}.pdf ProVation FT PDF PATIENT NAME: LONA MARIE [id number] at 1401 PATIENT NAME: LONA MARIE [id number] 2020-08-23 09:24:00-00:00 [facility] ([facility]) EMERGENCY PROVIDER REPORT REPORT#:[id number] REPORT STATUS: Signed DATE:08/23/20 TIME: 923 PATIENT: LONA MARIE UNIT #: [id number] ROOM: [facility] BED: 1 AGE: 30 SEX: F PCP PHYS: Self Referred SERVICE AUTHOR: Jose Luis Ly MD * ALL edits or amendments must be made on the VCV/computer document * HPI-General Illness Free Text HPI Notes Free Text HPI Notes 30-year-old female complaining of vomiting dark matter and having dark stool since August 13. Patient says she saw Christie Escobar in the office 2 days ago and he told her to come to the ER yesterday to angela baron. She says she saw Dr. Escobar in the hallway a few minutes ago and he told her she was being admitted. She reports feeling mildly weak. She d enies other complaints. She was admitted at [facility] a few days ago for the same and told she did not have a gynecologic cause of her bleeding. General Initial Greet Date/Time 08/23/20917 Presentation Chief Complaint gi bleed Review of [...] Medical History - Adult Stated Complaint ABDOMINAL FBYU-KSAEEIHR-GAMSMZH INED Allergies Coded Allergies: Penicillins (Severe, rash [...] Returned Time 1000 Call Returned Date 08/23/20 Guide Changer will do egd obs to shannon Patient [...] 08/23 922 Pulse 97 08/23 922 Resp 08/23 All vital signs available at the time of this en try have been reviewed. Clinical Impression Clinical Impression Primary Impression: Hemoptysis Disposition Decision Admit Admit Physician Name Olegario Srivastava MD )( Admission Accepts Yes )( Accepted Time 1007 )( Accepted Date 08/23/20 Electronically Signed by Jose Luis Ly MD on 08/07 09/25 at 2100 RPT #:[id number] END OF REPORT 2020-08-21 13:35:00-00:00 [facility] Clinical Note REPORT#:[id number] REPORT STATUS: Signed DATE:08/21/20 TIME: 1335 PATIENT: LONA MARIE UNIT #: [id number] ROOM/BED: [address] : 92 AGE: 30 SEX: F ATTEND: Austin Brooke MD ADM AUTHOR: Germania Tabor MD * ALL edits or amendments must be made on the VCV/computer document * Clinical Note Note: When I wrote the prescriptions for this patient, the pharmacy ([facility] [phone]) called to tell me they could refill the ativan as written, but not the oxycodone. I told them I would be at the [facility] Tuesday 08/21 ( now today) and that she could get one more r x for the oxycodone to make up for the refill. (I wrote for 3 days worth, and a refill, not wanting to give the patient too many pills at one time). Pt called me yesterday. I returned her call today [phone]. The patient requesting refills of both Ativan and oxycodone. I told her the ativan should have a refill and I confirmed this with the pharmacy. The patient is going to see GI today at a building near [place]. She said she can stop by to [...] Germania Tabor MD on at 1341 RPT #:[id number] END OF REPORT 2020-08-17 14:31:00-00:00 [id number] [facility] [address] [place], [place] [address] PATIENT NAME: LONA MARIE ADMIT DATE: 0 ACCOUNT NO: [id number] ROOM NO: [facility] AGE: 30 SEX: F ADMITTING PHYSICIAN: Zulay Brooke MD ATTENDING PHYSICIAN: Zulay Brooke MD ADMISSION DATE: 08/15/2020 DISCHARGE DATE: 08/17/2020 ADMITTING DIAGNOSES: Ruptured ovarian cyst, urin chiara tract infection, abdominal/pelvic pain, narcotic use, heartburn. ADMITTING SERVICE: EXECUTIVE CREATIVE DIRECTOR hospitalist. CONSULTATIONS: EXECUTIVE CREATIVE DIRECTOR hospitalist, rhea Choi a second opinion; and general surgery with Dr. Lopez. PROCEDURES: IV antibiotics. Pelvic ultra sound, abdominal ultrasound, abdominal x-ray. HOSPITAL COURSE: The patient is a 30-year-old -1-1-1, who had developed pain shortly postcoital, which was severe, and s he initially went to the [facility] ER in [place]. She came here the next day with some records from that visit, rather the labs and the CAT scan that were done, which were all normal. The CAT scan was only significant for a corpus lutea l cyst on the left ovary. The right [...] was given. Again, the CAT scan from [place] did not show any abnormal dilation of the kidneys or ureters or bladder, no evidence of stones. While here, a comprehensive metabolic panel was normal. Complete blood count was normal with a hemoglobin of 12 and a white count of 9. Her abdominal exam was benign. I attempted to get records as the patient had hysterectomies at [place], the patient allowed me to request those records; however, she declin ed signing to get any records from any [facility] facility. The patient required lisbeth te a bit of pain medications. The morphine did not seem to help her too much and she was requesting Dilaudid. She had notable shaking as well as she reported vomiting, and heartburn symptoms and upset stomach. However, t here was no vomiting that was witnessed by staff or medical doctors here. The patient was upset with the EXECUTIVE CREATIVE DIRECTOR hospitalist who was on the day of the 11t h and 12th, Dr. Tabor, and requested a second opinion. Dr. Cid was here a nd he again performed a pelvic exam and did not note any abnormalities, neither on abdominal exam, nor vaginal exam. However, he noted that her out dodson expressions of pain PATIENT NAME: LONA MARIE 139 seemed excessive, and he offered for her [...] medication use. This was also noted on [facility]AR[facility] with over 20 prescriptions of narcotics w ithin the last 2 years. At this point, we consulted a pain specialist over the phone, who said that likely she needs Ativan and morphine, that when these patients get pain from something exacerbating, they have a lot of anxiety about treating their pain and that we would not be able to treat her pain without treating her anxiety. Alexandre vines, the patient was reluctant to try [...] We gave her Pepcid and the night EXECUTIVE CREATIVE DIRECTOR hospitalist, Dr. Coelho, ordered an abdom inal [...] The patient is to follow up w sierra Keene, a pain specialist this week; as [...] spent. Dictated By: Germania Tabor MD WT: DS:F.SKY/LORA/SUSANNA PATIENT NAME: LONA MARIE 139 Conf#: [id number]/DID#: [id number] Authenticated and Edited by Germania Tabor MD On 08/20/20 12:16:32 AM Electronically Signed by Germania Tabor MD on at 0018 PATIENT NAME: LONA MARIE 139 2020-08-17 10:48:00-00:00 [id number] [facility] [address] [place], [place] [address] PATIENT NAME: LONA MARIE ADMIT DATE: 08/15/20 ACCOUNT NO: [id number] ROOM NO: .2660 AGE: 30 SEX: F [...] home there and then presented to the [facility] Room for continued pain. Presently, [...] Tabor. Dictated By: Ashlie Lopez MD WT: CON:ChaniSKY/HERSON.02/NTS Conf#: [id number]/DID#: [id number] Authenticated and Edited by Ashlie laurent MD On 08/21/20 10:46:17 AM Electronically Signed by Ashlie Lopez MD o n 08/21/20 at 1049 PATIENT NAME: LONA MARIE 139 2020-08-17 10:35:00-00:00 [facility] ([facility]) Clinical Note REPORT#:[id number] REPORT STATUS: Signed DATE:08/17/20 TIME: 1035 PATIENT: LONA MARIE UNIT #: [id number] ROOM/BED: [address] : 92 AGE: 30 SEX: F ATTEND: Austin Brooke MD ADM AUTHOR: Ashlie Lopez MD * ALL edits or amendments must be made on the VCV/computer document * Clinical Note Note: Pt seen [...] mostly in the pelvic region -nonsurgical abdomen #[id number] at 1048 RPT #:[id number] END OF REPORT 2020-08-16 21:47:00-00:00 [facility] ([facility]) Clinical Note REPORT#:[id number] REPORT STATUS: Signed DATE:08/16/20 TIME: 2147 PATIENT: LONA MARIE UNIT #: [id number] [address] AGE: 30 SEX: F ATTEND: Austin Brooke MD ADM AUTHOR: Kaylah Coelho MD * ALL edits or amendments must be made on the el MetaCertronic/computer document * Clinical Note Note: CTSP for [...] low FiO2 Mean Ox Delivery Rate 08/16 2055 98.6 104 19 129/86 100.1 100 Room a ir 08/16 1725 98.2 89 18 130/84 99.2 [...] by Kaylah Coelho MD on 07/26 at 2159 RPT #:[id number] END OF REPORT 2020-08-16 12:35:00-00:00 [facility]) Clinical Note REPORT#:[id number] REPORT STATUS: Signed DATE:08/16/20 TIME: 1235 PATIENT: LONA MARIE UNIT #: [id number] ROOM/BED: [facility] : 92 AGE: 30 SEX: F ATTEND: Austin Brooke MD ADM AUTHOR: Ghulam Cid III, MD * ALL edits or amendments must be made on the VCV/computer document * Clinical Note Note: OB /VIDEO EDITOR Hospitalist Jose Roberto Consult Requesting physician Dr Germania Tabor Pelvic pain 30 year old white female [id number] S/P hysterect casandra CC Severe lower ab pelvic pain. HPI About 2 nights ago she h ad intercourse with her . She then developed severe lower ab pain that radiated to her upper abdome n. She became bloated. Claims to have had a near syncopal episode after intercourse. She was seen at [facility] in [place] earlier today. CT scan reported showing a [...] Updated Coded metoclopramide (From Severe SHORTNESS OF BREATH 08/15/20 REGLAN) latex Intermediate RASH 08/15/20 adhesive [...] found for the bleeding. History of fibroids. VIDEO EDITOR Treated for chlamydia, paps negative, fibro ids, questionable endometriosis. PMH Past history of seizures, no meds for at le ast 2 years Denies history of depression, psychiatric disor fany PSH C/section, d and c, 2 laparoscopies, TLH in april 2020, appendectomy MEDS see hospital med reconcilliation H Positive for hypertension SH occ smoker, no [...] % (Auto) (14.3 - 34.3 %) 24.1 Saline % (Auto) (5.1 - 10.4 %) 8.3 Eos % (Auto) (0.1 - 3.0 %) 1.0 Baso % (Auto) (0.1 - 1.0 %) 0.6 Neut # (Auto) (K/mm3) 5.9 Lymph # (Auto) (K/mm3) 2.2 Saline # (Auto) (K/mm3) 0.7 Eos # (Auto) (K/mm3) 0.09 Baso # (Auto) (K/mm3) 0.1 Miscellaneous Maternal Serum HCG <1 Urines Urine Color (YELLOW) YELLOW Urine Appearance (CLEAR) CLEAR Urine pH (5 - 9) 5.0 Ur Specific [place] (1.001 - 1.035) >1.035 H Urine Protein [...] and ovaries. SL: SG-H Impression By: Jay9 Rehana Hairston MD ULTRASOUND - US PELVIS COMPLETE [...] scan. Plan Recommended treatment for possible UTI. Her pain complaints seem to be out of proportion the findings on her labs/xray . A flat plate x/ray of the lower abdomen may give us additional information. At this time she declined consultation with psychiatry. Consultation with pain managem ent may be needed. Consideration of a social service director consult if needed. I spoke with Dr Tabor. jr Electronically Signed by Ghulam Cid III, MD on 08/25 at 0106 RPT #:[id number] END OF REPORT 2020-08-16 09:18:00-00:00 [facility] ([facility]) Gynecology Progress Note REPORT#:[id number] REPORT STATUS: Signed DATE:08/16/20 TIME: 917 PATIENT: LONA MARIE UNIT #: [id number] ROOM/BED: [address] : 92 AGE: 30 SEX: F ATTEND: Austin Brooke MD ADM AUTHOR: Germania Tabor MD * ALL edits or amendments must be made on the VCV/Tu[employer]itas document * Subjective Chief Complaint: PAIN, COULDN'T [...] S he states it was done at [place]. She claims to not r emember the surgeon's name. She states she only saw her 3 times, and was sent ho me the day of surgery. t states she did not follow -up for her postop visit, but went to an Er in [facility] 1-2 weeks later for bloating. She was told she had some fluid in her abdomen, but everything else seemed fine, "and they sent me home with only 10 hydrocodone." She has some papers in her personal belongins arun david--from an [place] or [facility] visit yesterday. The CT with contrast shows [...] % (Auto) (14.3 - 34.3 %) 24.1 Saline % (Auto) (5.1 - 10.4 %) 8.3 Eos % (Auto) (0.1 - 3.0 %) 1.0 Baso % (Auto) (0.1 - 1.0 %) 0.6 Neut # (Auto) (K/mm3) 5.9 Lymph # (Auto) (K/mm3) 2.2 Saline # (Auto) (K/mm3) 0.7 Eos # (Auto) (K/mm3) 0.09 Baso # (Auto) (K/mm3) 0.1 Laboratory Tests 08/15 1535 Miscellaneous Maternal Serum HCG <1 Laboratory Tests 08/15 1635 Urines Urine Color (YELLOW) YELLOW Urine Appearance (CLEAR) CLEAR Urine pH (5 - 9) 5.0 Ur Specific Wahoo (1.001 - 1.035) >1.035 H Urine Protein [...] Report Impression - Status: SIGNED Entered: 08/15/2020 4050 IMPRESSION: 1. Abnormal small volume free pelvic fluid. 2. Nonvisualization of the uterus and ovaries. SL: SG-H Impression By: [email or web address] - Rubin Hairston MD ULTRASOUND - US PELVIS COMPLETE 08/15 175 Report Impression - Status: SIGNED Entered: 08/15/2020 1837 IMPRESSION: 1. Abnormal small volume free pelvic fluid. 2. Nonvisualization of the uterus and ovaries. SL: SG-H Impression By: [email or web address] - Rubin Hairstno MD Diagnosis, Assessment Plan Problem List/A P: [...] We could try to get Ct from [facility] to be courired here--I will see sbout requesting. I had the patient sign records to try to get a better idea of prior surgeries. Electronically Signed by Germania Tabor MD on 07/26 at 0933 RPT #:[id number] END OF REPORT 2020-08-16 09:18:00-00:00 [facility] ([facility]) Gynecology Progress Note REPORT#:[id number] REPORT STATUS: Signed DATE:08/16/20 TIME: 917 PATIENT: LONA MARIE UNIT #: [id number] ROOM/BED: [facility]-A : 92 AGE: 30 SEX: F ATTEND: Austin Brooke MD ADM AUTHOR: Germania Tabor MD * ALL edits or amendments must be made on the el Bizzingo/computer document * See Addendum Subjective Chief Complaint: [...] S he states it was done at [place]. She claims to not r emember the surgeon's name. She states she only saw her 3 times, and was sent ho me the day of surgery. Sht states she did not follow -up for her postop visit, but went to an Er in [facility] 1-2 weeks later for bloating. She was told she had some fluid in her abdomen, but everything else seemed fine, "and they sent me home with only 10 hydrocodone." She has some papers in her personal belongins ba g--from an [place] or [facility] visit yesterday. The CT with contrast shows [...] % (Auto) (14.3 - 34.3 %) 24.1 Saline % (Auto) (5.1 - 10.4 %) 8.3 Eos % (Auto) (0.1 - 3.0 %) 1.0 Baso % (Auto) (0.1 - 1.0 %) 0.6 Neut # (Auto) (K/mm3) 5.9 Lymph # (Auto) (K/mm3) 2.2 Saline # (Auto) (K/mm3) 0.7 Eos # (Auto) (K/mm3) 0.09 Baso # (Auto) (K/mm3) 0.1 Laboratory Tests 08/15 1535 Miscellaneous Maternal Serum HCG <1 Laboratory Tests 08/15 1635 Urines Urine Color (YELLOW) YELLOW Urine Appearance (CLEAR) CLEAR Urine pH (5 - 9) 5.0 Ur Specific Wahoo (1.001 - 1.035) >1.035 H Urine Protein [...] uterus and ovaries. SL: SG-Pepper Impression By: Jose L Hairston MD ULTRASOUND - US PELVIS COMPLETE 08/15 1751 Report Impression - Status: SIGNED Entered: 08/15/20201836 IMPRESSION: 1. Abnormal small volume free pelvic fluid. 2. Nonvisualization of the uterus and ovaries. SL: SGYunior Impression By: Jose L Hairston MD Diagnosis, [...] We could try to get Ct from [facility] to be courired here--I will see sbout requesting. I had the patient sign records to try to get a better idea of prior surgeries. Electronically Signed by Germania Tabor MD on 07/26 at 0933 Addendum 1: 08/16/20 1109 by Germania aTbor MD I looked up the patient's [facility] Aware report with >20 fills for narcotics going back to about 2018. Th ey seem to be in clusters, for a few months she will fill narcotics--even sometim es days apart, and then there will be a gap of a few months. I have sent the release of r ecords to [place] w/o response yet. I then went back to ask the patient if I could also send to [facility], but she said she's not had anything done at [facility] this y ear, only their ER in [place]. I also asked if she would sign [...] second oppinion . I spoke to our managing director who is out of to wn, but recommended that the other hospitalist see the patient. I have contac uche him. Electronically Signed by Germania Tabor MD on 07/26 at 1123 RPT #:[id number] END OF REPORT 2020-08-16 09:18:00-00:00 [facility] ([facility]) Gynecology Progress Note REPORT#:[id number] REPORT STATUS: Signed DATE:08/16/20 TIME: 917 PATIENT: LONA MARIE UNIT #: [id number] ROOM/BED: [facility] : 92 AGE: 30 SEX: F ATTEND: Austin Brooke MD ADM AUTHOR: Germania Tabor MD * ALL edits or amendments must be made on the VCV/computer document * See Addendum Subjective Chief Complaint: [...] S he states it was done at [place]. She claims to not r emember the surgeon's name. She states she only saw her 3 times, and was sent ho me the day of surgery. Sht states she did not follow -up for her postop visit, but went to an Er in [facility] [place] 1-2 weeks later for bloating. She was told she had some fluid in her abdomen, but everything else seemed fine, "and they sent me home with only 10 hydrocodone." She has some papers in her personal belongins arun david--from an [place] or [facility] visit yesterday. The CT with contrast shows [...] % (Auto) (14.3 - 34.3 %) 24.1 Saline % (Auto) (5.1 - 10.4 %) 8.3 Eos % (Auto) (0.1 - 3.0 %) 1.0 Baso % (Auto) (0.1 - 1.0 %) 0.6 Neut # (Auto) (K/mm3) 5.9 Lymph # (Auto) (K/mm3) 2.2 Saline # (Auto) (K/mm3) 0.7 Eos # (Auto) (K/mm3) 0.09 Baso # (Auto) (K/mm3) 0.1 Laboratory Tests 08/15 1535 Miscellaneous Maternal Serum HCG <1 Laboratory Tests 08/15 1635 Urines Urine Color (YELLOW) YELLOW Urine Appearance (CLEAR) CLEAR Urine pH (5 - 9) 5.0 Ur Specific Wahoo (1.001 - 1.035) >1.035 H Urine Protein [...] We could try to get Ct from [facility] to be courired here--I will see sbout requesting. I had the patient sign records to try to get a better idea of prior surgeries. Electronically Signed by Germania Tabor MD on 07/26 at 0933 Addendum 1: 08/16/20 1109 by Germania Tabor MD I looked up the patient's [facility] Aware report with >20 fills for narcotics going back to about 2018. Th ey seem to be in clusters, for a few months she will fill narcotics--even sometim es days apart, and then there will be a gap of a few months. I have sent the release of r ecords to [place] w/o response yet. I then went back to ask the patient if I could also send to [facility], but she said she's not had anything done at [facility] this y ear, only their ER in [place]. I also asked if she would sign [...] second oppinion . I spoke to our managing director who is out of to wn, but [...] told me, Dr. Perkins, a doctor at [facility] who did her l aparoscopy, "messed me [...] we were treating a UTI, and felix d that she doesn't have a UTI. She [...] Tabor MD on 07/26 at 1507 RPT #:[id number] END OF REPORT 2020-08-16 09:18:00-00:00 [facility] ([facility]) Gynecology Progress Note REPORT#:[id number] REPORT STATUS: Signed DATE:08/16/20 TIME: 917 PATIENT: LONA MARIE UNIT #: [id number] ROOM/BED: [address] : 92 AGE: 30 SEX: F ATTEND: Austin Brooke MD ADM AUTHOR: Germania Tabor MD * ALL edits or amendments must be made on the VCV/computer document * See Addendum Subjective Chief Complaint: [...] S he states it was done at [place]. She claims to not r emember the surgeon's name. She states she only saw her 3 times, and was sent ho me the day of surgery. Sht states she did not follow -up for her postop visit, but went to an Er in [facility] [place] 1-2 weeks later for bloating. She was told she had some fluid in her abdomen, but everything else seemed fine, "and they sent me home with only 10 hydrocodone." She has some papers in her personal belongins arun david--from an [place] or [facility] visit yesterday. The CT with contrast shows [...] dose of Morhine. The patient also requests Sujit for vo miting. Objective General VS/I O: [...] % (Auto) (14.3 - 34.3 %) 24.1 Saline % (Auto) (5.1 - 10.4 %) 8.3 Eos % (Auto) (0.1 - 3.0 %) 1.0 Baso % (Auto) (0.1 - 1.0 %) 0.6 Neut # (Auto) (K/mm3) 5.9 Lymph # (Auto) (K/mm3) 2.2 Saline # (Auto) (K/mm3) 0.7 Eos # (Auto) (K/mm3) 0.09 Baso # (Auto) (K/mm3) 0.1 Laboratory Tests 08/15 1535 Miscellaneous Maternal Serum HCG <1 Laboratory Tests 08/15 1635 Urines Urine Color (YELLOW) YELLOW Urine Appearance (CLEAR) CLEAR Urine pH (5 - 9) 5.0 Ur Specific Wahoo (1.001 - 1.035) >1.035 H Urine Protein [...] We could try to get Ct from [facility] to be courired here--I will see sbout requesting. I had the patient sign records to try to get a better idea of prior surgeries. Electronically Signed by Germania Tabor MD on 07/26 at 0933 Addendum 1: 08/16/20 1109 by Germania Tabor MD I looked up the patient's [facility] Aware report with >20 fills for narcotics going back to about 2018. Th ey seem to be in clusters, for a few months she will fill narcotics--even sometim es days apart, and then there will be a gap of a few months. I have sent the release of r ecords to [place] w/o response yet. I then went back to ask the patient if I could also send to [facility], but she said she's not had anything done at [facility] this y ear, only their ER in [place]. I also asked if she would sign [...] second oppinion . I spoke to our managing director who is out of to wn, but [...] told me, Dr. Perkins, a doctor at [facility] who did her l aparoscopy, "messed me [...] we were treating a UTI, and felix alvarez that she doesn't have a UTI. She [...] Tabor MD on 07/26 at 1525 RPT #:[id number] END OF REPORT 2020-08-15 23:15:00-00:00 [facility]) VIDEO EDITOR Admission H P REPORT#:[id number] REPORT STATUS: Signed DATE:08/15/20 TIME: 2314 PATIENT: LONA MARIE UNIT #: [id number] ROOM/BED: 2660-A : 92 AGE: 30 SEX: F ATTEND: Austin Brooke MD ADM AUTHOR: Zulay Brooke MD * ALL edits or amendments must be made on the el Bizzingo/computer document * History of Present Illness Chief [...] ameliorating or exacerbating factors. She went to [facility] and received IV pain meds without relief. They were going to admit her for pain control, but she declined. S he went home and the pain became unbearable, so she came to [facility]. Of note, she is s/p hysterectomy in 04/2020 and h as had intercourse since then without problem. 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 SERVER: alert, oriented X 3 Psychiatry: normal affect, [...] % (Auto) (14.3 - 34.3 %) 24.1 Saline % (Auto) (5.1 - 10.4 %) 8.3 Eos % (Auto) (0.1 - 3.0 %) 1.0 Baso % (Auto) (0.1 - 1.0 %) 0.6 Neut # (Auto) (K/mm3) 5.9 Lymph # (Auto) (K/mm3) 2.2 Saline # (Auto) (K/mm3) 0.7 Eos # (Auto) (K/mm3) 0.09 Baso # (Auto) (K/mm3) 0.1 Miscellaneous Maternal Serum HCG <1 Urines Urine Color (YELLOW) YELLOW Urine Appearance (CLEAR) CLEAR Urine pH (5 - 9) 5.0 Ur Specific Wahoo (1.001 - 1.035) >1.035 H Urine Protein [...] Impressions: ULTRASOUND - US TRANSVAGINAL W/PELVIS 08/15 216 Report Impression - Status: SIGNED Entered: 08/15/2020 4156 IMPRESSION: 1. Abnormal small volume free pelvic fluid. 2. Nonvisualization of the uterus and ovaries. SL: SG-H Impression By: Jose L Hairston MD ULTRASOUND - US PELVIS COMPLETE 08/15 1751 Report Impression - Status: SIGNED Entered: 08/15/2020 1837 IMPRESSION: 1. Abnormal small volume free pelvic [...] Zulay Brooke MD on at 0656 RPT #:[id number] END OF REPORT 2020-08-15 15:05:00-00:00 [facility] ([facility]) EMERGENCY PROVIDER REPORT REPORT#:[id number] REPORT STATUS: Signed DATE:08/15/20 TIME: 1505 PATIENT: LONA MARIE UNIT #: [id number] ROOM/BED: AGE: 30 SEX: F PCP PHYS: No Primary or Family Ph ysician SERVICE AUTHOR: Andressa Razo MD * ALL edits or amendments must be made on the VCV/computer document * Andressa Razo I 08/15/20 1505: [...] of vomiting dark content, patient went to [facility] ER and she got CT abdomen that [...] % (Auto) (14.3 - 34.3 %) 24.1 Saline % (Auto) (5.1 - 10.4 %) 8.3 Eos % (Auto) (0.1 - 3.0 %) 1.0 Baso % (Auto) (0.1 - 1.0 %) 0.6 Neut # (Auto) (K/mm3) 5.9 Lymph # (Auto) (K/mm3) 2.2 Saline # (Auto) (K/mm3) 0.7 Eos # (Auto) (K/mm3) 0.09 Baso # (Auto) (K/mm3) 0.1 Miscellaneous Maternal Serum HCG <1 Urines Urine Color (YELLOW) YELLOW Urine Appearance (CLEAR) CLEAR Urine pH (5 - 9) 5.0 Ur Specific Wahoo (1.001 - 1.035) >1.035 H Urine Protein [...] the current impression and/or treatment plan. The [facility] physician is now responsible for the patient's care and final dis position. Care Transferred to Dr Amanda Care Transferred at 1800 Discussed Complaint(s) Yes Laboratory Evaluation Lab evaluation discussed Imaging Studies Ordered, not yet done at 1741 RPT #:[id number] END OF REPORT 2020-08-15 15:05:00-00:00 [facility] ([facility]) EMERGENCY PROVIDER REPORT REPORT#:[id number] REPORT STATUS: Signed DATE:08/15/20 TIME: 150 PATIENT: LONA MARIE UNIT #: [id number] ROOM/BED: AGE: 30 SEX: F PCP PHYS: No Primary or Family Ph ysician SERVICE AUTHOR: Andressa Razo MD * ALL edits or amendments must be made on the VCV/TuManitas document * See Addendum Andressa Razo I [...] Admin Hydromorphone HCl 1 MG X1ED STA 12 [...] STA 12/10 1503 DC 12/ 10 IV 08/15 1504 1553 Patient Discharge Departure [...] of vomiting dark content, patient went to [facility] ER and she got CT abdomen that [...] 1506 Temp 36.9 08/15 1506 Pulse 110 12/10 1506 Resp 20 08/15 1506 Last Documented: Result Date Time Pulse Ox 100 08/15 1506 B/P 163/92 08/15 1506 B/P Mean 115 08/15 1506 O2 Delivery Room air 08/15 1506 Temp 36.9 08/15 1506 Pulse 110 08/15 1506 Resp 20 08/15 1506 Review of Vital Signs Reviewed Basic [...] % (Auto) (14.3 - 34.3 %) 24.1 Saline % (Auto) (5.1 - 10.4 %) 8.3 Eos % (Auto) (0.1 - 3.0 %) 1.0 Baso % (Auto) (0.1 - 1.0 %) 0.6 Neut # (Auto) (K/mm3) 5.9 Lymph # (Auto) (K/mm3) 2.2 Saline # (Auto) (K/mm3) 0.7 Eos # (Auto) (K/mm3) 0.09 Baso # (Auto) (K/mm3) 0.1 Miscellaneous Maternal Serum HCG <1 Urines Urine Color (YELLOW) YELLOW Urine Appearance (CLEAR) CLEAR Urine pH (5 - 9) 5.0 Ur Specific Wahoo (1.001 - 1.035) >1.035 H Urine Protein [...] the current impression and/or treatment plan. The [facility] physician is now responsible for the patient's care and final dis position. Care Transferred to Dr Amanda Care Transferred at 1800 Discussed Complaint(s) Yes Laboratory Evaluation Lab evaluation discussed Imaging Studies Ordered, not yet done at 1741 Addendum 1: 08/15/201805 by José Rader MD for Thomas Chamberlain MD Patient Addendum Addendum at 1806 RPT #:[id number] END OF REPORT 2020-08-15 15:05:00-00:00 [facility] ([facility]) EMERGENCY PROVIDER REPORT REPORT#:[id number] REPORT STATUS: Signed DATE:08/15/20 TIME: 1504 PATIENT: LONA MARIE UNIT #: [id number] ROOM/BED: AGE: 30 SEX: F PCP PHYS: No Primary or Family P hysician SERVICE AUTHOR: Andressa Razo MD * ALL edits or amendments must be made on the el Bizzingo/computer document * See Addendum Andressa Razo I [...] of vomiting dark content, patient went to [facility] ER and she got CT abdomen that [...] % (Auto) (14.3 - 34.3 %) 24.1 Saline % (Auto) (5.1 - 10.4 %) 8.3 Eos % (Auto) (0.1 - 3.0 %) 1.0 Baso % (Auto) (0.1 - 1.0 %) 0.6 Neut # (Auto) (K/mm3) 5.9 Lymph # (Auto) (K/mm3) 2.2 Saline # (Auto) (K/mm3) 0.7 Eos # (Auto) (K/mm3) 0.09 Baso # (Auto) (K/mm3) 0.1 Miscellaneous Maternal Serum HCG <1 Urines Urine Color (YELLOW) YELLOW Urine Appearance (CLEAR) CLEAR Urine pH (5 - 9) 5.0 Ur Specific Wahoo (1.001 - 1.035) >1.035 H Urine Protein [...] the current impression and/or treatment plan. The [facility] physician is now responsible for the patient's [...] MD Patient Addendum Addendum at 1807 RPT #:[id number] END OF REPORT 2020-08-15 15:05:00-00:00 [facility] ([facility]) EMERGENCY PROVIDER REPORT REPORT#:[id number] REPORT STATUS: Signed DATE:08/15/20 TIME: 1505 PATIENT: LONA MARIE UNIT #: [id number] ROOM/BED: AGE: 30 SEX: F PCP PHYS: No Primary or Family Ph ysician SERVICE AUTHOR: Andressa Razo MD * ALL edits or amendments must be made on the VCV/TuManitas document * See Addendum Andressa Razo I [...] STA 08/15 1503 DCr 1 2/10 IV 08/15 1504 1553 Electrolytic, Caloric, And Jair Sig/Arina Start time Last Medication Dose Route Stop Time Status Admin Sodium Chloride 1,000 ML X1ED STA 08/15 1653 DC /10 IV 12/10 1654 1726 Sodium Chloride 1,000 ML X1ED STA 12 1515 DC 12/10 IV 12/10 1516 1552 [...] of vomiting dark content, patient went to [facility] ER and she got CT abdomen that [...] Documented: Result Date Time Pulse Ox 100 / 1506 B/P 163/92 / 1506 B/P Mean 115 12/10 1506 O2 Delivery Room air / 1506 Temp 36.9 12/10 1506 Pulse 110 12/10 1506 Resp 20 08/15 1506 Last Documented: Result Date Time Pulse Ox 100 12/10 1506 B/P 163/92 12/ 1506 B/P Mean 115 12/10 1506 O2 Delivery Room air 12/ 1506 Temp 36.9 12/10 1506 Pulse 110 12/10 1506 Resp 20 08/15 1506 Review of Vital Signs Reviewed Basic [...] % (Auto) (14.3 - 34.3 %) 24.1 Saline % (Auto) (5.1 - 10.4 %) 8.3 Eos % (Auto) (0.1 - 3.0 %) 1.0 Baso % (Auto) (0.1 - 1.0 %) 0.6 Neut # (Auto) (K/mm3) 5.9 Lymph # (Auto) (K/mm3) 2.2 Saline # (Auto) (K/mm3) 0.7 Eos # (Auto) (K/mm3) 0.09 Baso # (Auto) (K/mm3) 0.1 Miscellaneous Maternal Serum HCG <1 Urines Urine Color (YELLOW) YELLOW Urine Appearance (CLEAR) CLEAR Urine pH (5 - 9) 5.0 Ur Specific Wahoo (1.001 - 1.035) >1.035 H Urine Protein [...] the current impression and/or treatment plan. The [facility] physician is now responsible for the patient's [...] MD Patient Addendum Addendum at 1810 RPT #:[id number] END OF REPORT 2020-08-15 15:05:00-00:00 [facility] ([facility]) EMERGENCY PROVIDER REPORT REPORT#:[id number] REPORT STATUS: Signed DATE:08/15/20 TIME: 1505 PATIENT: LONA MARIE UNIT #: [id number] ROOM/BED: AGE: 30 SEX: F PCP PHYS: No Primary or Family Ph ysician SERVICE AUTHOR: Andressa Razo MD * ALL edits or amendments must be made on the VCV/computer document * See Addendum Andressa Razo I [...] 50 MCG X1ED STA 08/15 2109 DC IV 08/15 2110 Hydromorphone HCl 0.5 MG X1ED STA 08/15 2011 DC r 12/10 IV 08/15 2012 2044 Hydromorphone HCl 0.5 MG X1ED STA 08/15 1843 DC r 12/10 IV 12 1844 1904 Hydromorphone HCl 1 MG X1ED STA 08/15 1652 DCr 12/10 IV 12/10 1653 1724 Morphine Sulfate 4 MG X1ED STA / 1503 DCr 1 2/10 IV 12/10 1504 [...] 4 MG X1ED STA 12/10 1503 DC / IV 08/15 1504 1553 Patient Discharge Departure [...] 1834 Pulse 99 08/15 1834 Resp 18 08/15 1834 O2 Delivery Room air 08/15 1732 [...] of vomiting dark content, patient went to [facility] ER and she got CT abdomen that [...] 1834 Pulse 99 08/15 1834 Resp 18 08/15 1834 O2 Delivery Room air 08/15 1732 [...] % (Auto) (14.3 - 34.3 %) 24.1 Saline % (Auto) (5.1 - 10.4 %) 8.3 Eos % (Auto) (0.1 - 3.0 %) 1.0 Baso % (Auto) (0.1 - 1.0 %) 0.6 Neut # (Auto) (K/mm3) 5.9 Lymph # (Auto) (K/mm3) 2.2 Saline # (Auto) (K/mm3) 0.7 Eos # (Auto) (K/mm3) 0.09 Baso # (Auto) (K/mm3) 0.1 Miscellaneous Maternal Serum HCG <1 Urines Urine Color (YELLOW) YELLOW Urine Appearance (CLEAR) CLEAR Urine pH (5 - 9) 5.0 Ur Specific Wahoo (1.001 - 1.035) >1.035 H Urine Protein [...] the current impression and/or treatment plan. The [facility] physician is now responsible for the patient's [...] Consultation Consultation Referral/Consult Name Zulay Brooke MD Guide Changer Called Hospitalist Requested Call Time 2112 Requested Call Date 08/15/20 Call Returned Call returned Call Returned Time 2112 Call Returned Date 08/15/20 Guide Changer Will see patient at 1741 Addendum 1: 08/15/201805 by José Rader MD for Thomas Chamberlain MD Patient Addendum Addendum at 1806 Addendum 2: 08/15/20 180 by José Rader MD Patient Addendum Addendum at 1807 Addendum 3: 08/15/200 by José Rader MD Patient Addendum Addendum at 1810 RPT #:[id number] END OF REPORT 2020-08-15 15:05:00-00:00 [facility] ([facility]) EMERGENCY PROVIDER REPORT REPORT#:[id number] REPORT STATUS: Signed DATE:08/15/20 TIME: 1505 PATIENT: LONA MARIE UNIT #: [id number] ROOM/BED: AGE: 30 SEX: F PCP PHYS: No Primary or Family Ph ysician SERVICE AUTHOR: Andressa Razo MD * ALL edits or amendments must be made on the VCV/computer document * See Addendum Andressa Razo I [...] 4 MG X1ED STA 08/15 1503 DC 12 IV 08/15 1504 1553 Patient Discharge Departure Vital Signs/Condition Vital Signs First Documented: Result Date Time Pulse Ox 100 08/15 1506 B/P 163/92 12 1506 B/P Mean 115 / 1506 O2 Delivery Room air 08/15 1506 Temp 36.9 12/ 1506 Pulse 110 12/ 1506 Resp 20 12/ 1506 Last Documented: Result Date Time Pulse Ox 100 08/15 2030 B/P 120/70 12/ 2030 B/P Mean 86 / 2030 O2 [...] of vomiting dark content, patient went to [facility] ER and she got CT abdomen that [...] PRN MODERATE PAIN oxyCODONE HCL/ACETAMINOPHEN (PERCOCET 5/325 MG ) 1 TAB PO Q4H PRN PRN MODERATE [...] 08/15 1506 O2 Delivery Room air 08/15 150 Temp 36.9 08/15 150 Pulse 110 08/15 [...] % (Auto) (14.3 - 34.3 %) 24.1 Saline % (Auto) (5.1 - 10.4 %) 8.3 Eos % (Auto) (0.1 - 3.0 %) 1.0 Baso % (Auto) (0.1 - 1.0 %) 0.6 Neut # (Auto) (K/mm3) 5.9 Lymph # (Auto) (K/mm3) 2.2 Saline # (Auto) (K/mm3) 0.7 Eos # (Auto) (K/mm3) 0.09 Baso # (Auto) (K/mm3) 0.1 Miscellaneous Maternal Serum HCG <1 Urines Urine Color (YELLOW) YELLOW Urine Appearance (CLEAR) CLEAR Urine pH (5 - 9) 5.0 Ur Specific [place] (1.001 - 1.035) >1.035 H Urine Protein [...] the current impression and/or treatment plan. The [facility] physician is now responsible for the patient's care and final dis position. Care Transferred to Dr Amanda Care Transferred at 1800 Discussed Complaint(s) Yes Laboratory Evaluation Lab evaluation discussed Imaging Studies Ordered, not yet done Thomas Chamberlain 08/15/20 2112: HPI-General Illness General Initial Greet Date/Time 08/15/20 1503 Physical Exam Physical Exam Genitourinary Text/Dict Notes cuff intact, small area of erythema noted Re-Evaluation MDM Re-Evaluation/Progress #1 Text/Dict Note Dr. Brooke at bedside Time of Re-Eval 2237 Re-Eval Status Unchanged Consultation Consultation Referral/Consult Name Zulay Brooke MD Guide Changer Called Hospitalist Requested Call Time 2112 Requested Call Date 08/15/20 Call Returned Call returned Call Returned Time 2112 Call Returned Date 08/15/20 Guide Changer Will see patient at 1741 Addendum 1: 08/15/201805 by José Rader MD for Thomas Chamberlain MD Patient Addendum Addendum at 1806 Addendum 2: 08/15/201806 by José Rader MD Patient Addendum Addendum at 1807 Addendum 3: 08/15/201809 by José Rader MD Patient Addendum Addendum at 1810 RPT #:[id number] END OF REPORT 2020-08-15 15:05:00-00:00 [facility] ([facility]) EMERGENCY PROVIDER REPORT REPORT#:[id number] REPORT STATUS: Signed DATE:08/15/20 TIME: 150 PATIENT: LONA MARIE UNIT #: [id number] ROOM/BED: AGE: 30 SEX: F PCP PHYS: No Primary or Family Ph ysician SERVICE AUTHOR: Andressa Razo MD * ALL edits or amendments must be made on the VCV/computer document * See Addendum Andressa Razo I [...] X1ED STA 08/15 210 DC 12/10 IV 08/15 211 2218 Hydromorphone HCl 0.5 MG X1ED STA 08/15 2011 DC r 12/10 IV 08/15 2012 204 Hydromorphone HCl 0.5 MG X1ED STA 08/15 1843 DC r 12/10 IV 08/15 1844 1904 Hydromorphone HCl 1 MG X1ED STA 08/15 1652 DCr 12/10 IV 08/15 1653 1724 Morphine Sulfate 4 MG X1ED STA 08/15 1503 DCr 1 / IV 08/15 1504 1553 Electrolytic, Caloric, And Jair Sig/Arina Start time Last Medication Dose Route Stop Time Status Admin Sodium Chloride 1,000 ML X1ED STA 10 1653 DC 12/10 IV 1210 1654 1726 Sodium Chloride 1,000 ML X1ED STA 10 1515 DC 12/10 IV 12/10 1516 1552 Gastrointestinal Drugs Sig/Arina Start time Last Medication Dose Route Stop Time Status Admin Ondansetron HCl 4 MG X1ED STA 08/15 1503 DC 12/ 10 IV 12 1504 1553 Patient Discharge Departure Vital Signs/Condition Vital Signs First Documented: Result Date Time Pulse Ox 100 12/ 1506 B/P 163/92 / 1506 B/P Mean 115 /10 1506 O2 Delivery Room air 08/15 1506 Temp 36.9 / 1506 Pulse 110 / 1506 Resp 20 [...] of vomiting dark content, patient went to [facility] ER and she got CT abdomen that [...] 08/15 1506 O2 Delivery Room air 08/15 150 Temp 36.9 08/15 1506 Pulse 110 08/15 [...] % (Auto) (14.3 - 34.3 %) 24.1 Saline % (Auto) (5.1 - 10.4 %) 8.3 Eos % (Auto) (0.1 - 3.0 %) 1.0 Baso % (Auto) (0.1 - 1.0 %) 0.6 Neut # (Auto) (K/mm3) 5.9 Lymph # (Auto) (K/mm3) 2.2 Saline # (Auto) (K/mm3) 0.7 Eos # (Auto) (K/mm3) 0.09 Baso # (Auto) (K/mm3) 0.1 Miscellaneous Maternal Serum HCG <1 Urines Urine Color (YELLOW) YELLOW Urine Appearance (CLEAR) CLEAR Urine pH (5 - 9) 5.0 Ur Specific [place] (1.001 - 1.035) >1.035 H Urine Protein [...] the current impression and/or treatment plan. The [facility] physician is now responsible for the patient's [...] Consultation Consultation Referral/Consult Name Zulay Brooke MD Guide Changer Called Hospitalist Requested Call Time 2112 Requested Call Date 08/15/20 Call Returned Call returned Call Returned Time 2112 Call Returned Date 08/15/20 Guide Changer Will see patient Free Text MDM Notes [...] studies, Need for admission at 1741 at 0800 Addendum 1: 08/15/20 1806 by José Rader MD for Thomas Chamberlain MD Patient Addendum Addendum at 1806 Addendum 2: 08/15/201806 by José Rader MD Patient Addendum Addendum at 1807 Addendum 3: 08/15/201809 by José Rader MD Patient Addendum Addendum at 1810 RPT #:[id number] END OF REPORT 2020-08-15 15:05:00-00:00 [facility] ([facility]) EMERGENCY PROVIDER REPORT REPORT#:[id number] REPORT STATUS: Signed DATE:08/15/20 TIME: 1505 PATIENT: LONA MARIE UNIT #: [id number] ROOM/BED: [address] AGE: 30 SEX: F PCP PHYS: Zulay Brooke MD SERVICE AUTHOR: Andressa Razo MD * ALL edits or amendments must be made on the VCV/computer document * See Addendum Andressa Razo I [...] X1ED STA 08/15 2109 DC 12/10 IV 12 2110 2218 Hydromorphone HCl 0.5 MG X1ED STA 08/15 2011 DC r 12/10 IV 08/15 Hydromorphone HCl 0.5 MG X1ED STA 12 1843 DC r 12 IV 12 1844 1904 Hydromorphone HCl 1 MG X1ED STA 12 1652 DCr 12/10 IV 12 1653 1724 Morphine Sulfate 4 MG X1ED STA 08/15 1503 DCr 1 / IV 08/15 1504 1553 Electrolytic, Caloric, And Jair Sig/Arina Start time Last Medication Dose Route Stop Time Status Admin Sodium Chloride 1,000 ML X1ED STA 12 1653 DC 12/10 IV 12 1654 1726 Sodium Chloride 1,000 ML X1ED STA 08/15 1515 DC 12/ IV 12 1516 1552 Gastrointestinal Drugs Sig/Arina Start time Last Medication Dose Route Stop Time Status Admin Ondansetron HCl 4 MG X1ED STA 08/15 1503 DC 12/ IV 12 1504 1553 Patient Discharge Departure Vital Signs/Condition Vital Signs First Documented: Result Date Time Pulse Ox 100 12/ 1506 B/P 163/92 12 1506 B/P Mean 115 / 1506 O2 Delivery Room air 08/15 1506 [...] of vomiting dark content, patient went to [facility] ER and she got CT abdomen that [...] 08/15 1506 O2 Delivery Room air 08/15 150 Temp 36.9 08/15 150 Pulse 110 08/15 [...] % (Auto) (14.3 - 34.3 %) 24.1 Saline % (Auto) (5.1 - 10.4 %) 8.3 Eos % (Auto) (0.1 - 3.0 %) 1.0 Baso % (Auto) (0.1 - 1.0 %) 0.6 Neut # (Auto) (K/mm3) 5.9 Lymph # (Auto) (K/mm3) 2.2 Saline # (Auto) (K/mm3) 0.7 Eos # (Auto) (K/mm3) 0.09 Baso # (Auto) (K/mm3) 0.1 Miscellaneous Maternal Serum HCG <1 Urines Urine Color (YELLOW) YELLOW Urine Appearance (CLEAR) CLEAR Urine pH (5 - 9) 5.0 Ur Specific [place] (1.001 - 1.035) >1.035 H Urine Protein [...] the current impression and/or treatment plan. The [facility] physician is now responsible for the patient's [...] Consultation Consultation Referral/Consult Name Zulay Brooke MD Guide Changer Called Hospitalist Requested Call Time 2112 Requested Call Date 08/15/20 Call Returned Call returned Call Returned Time 2112 Call Returned Date 08/15/20 Guide Changer Will see patient Free Text MDM Notes [...] MD Patient Addendum Addendum at 1810 RPT #:[id number] END OF REPORT 2020-08-15 15:05:00-00:00 [facility] ([facility]) EMERGENCY PROVIDER REPORT REPORT#:[id number] REPORT STATUS: Signed DATE:08/15/20 TIME: 1504 PATIENT: LONA MARIE UNIT #: [id number] ROOM/BED: .2660-A AGE: 30 SEX: F PCP PHYS: Zulay Brooke MD SERVICE AUTHOR: Andressa Razo MD * ALL edits or amendments must be made on the VCV/[employer] document * See Addendum Andressa Razo I 08/15/20 1505: HPI-General Illness General Initial Greet Date/Time 08/15/201502 Provider in Triage Greet Note I have [...] 50 MCG X1ED STA 08/15 2109 DC 12/ IV 08/15 211 2218 Hydromorphone HCl 0.5 MG X1ED STA 08/15 2011 DC r 12/10 IV 08/15 2012 204 Hydromorphone HCl 0.5 MG X1ED STA 08/15 1843 DC r 08/15 IV 12 1844 1904 Hydromorphone HCl 1 MG X1ED [...] X1ED STA 08/15 1515 DC 12/10 IV 12/ 1516 1552 Gastrointestinal Drugs Sig/Arina Start time Last Medication Dose Route Stop Time Status Admin Ondansetron HCl 4 MG X1ED STA 12 1503 DC 12/ 10 IV 12/10 1504 1553 Ashley Rader 08/15/20 1534: HPI-General Illness Free [...] to the upper abdomen, pain is intense, / associated with 2 episodes of vomiting dark content, patient went to [facility] ER and she got CT abdomen that [...] 92 / 0000 O2 Delivery Room air 12/ 0000 Temp 37.0 12/ 0000 Pulse 84 12/ 0000 Resp 18 08/16 0000 Review of [...] % (Auto) (14.3 - 34.3 %) 24.1 Saline % (Auto) (5.1 - 10.4 %) 8.3 Eos % (Auto) (0.1 - 3.0 %) 1.0 Baso % (Auto) (0.1 - 1.0 %) 0.6 Neut # (Auto) (K/mm3) 5.9 Lymph # (Auto) (K/mm3) 2.2 Saline # (Auto) (K/mm3) 0.7 Eos # (Auto) (K/mm3) 0.09 Baso # (Auto) (K/mm3) 0.1 Miscellaneous Maternal Serum HCG <1 Urines Urine Color (YELLOW) YELLOW Urine Appearance (CLEAR) CLEAR Urine pH (5 - 9) 5.0 Ur Specific [place] (1.001 - 1.035) >1.035 H Urine Protein [...] Pulse Ox 99 08/16 0000 B/P 134/71 12/11 0000 B/P Mean 92 08/16 O2 Delivery Room air 08/16 Temp 37.0 08/16 Pulse 84 08/16 Resp 18 08/16 All vital signs available at the time [...] the current impression and/or treatment plan. The [facility] physician is now responsible for the patient's [...] Consultation Consultation Referral/Consult Name Zulay Brooke MD Guide Changer Called Hospitalist Requested Call Time 2112 Requested Call Date 08/15/20 Call Returned Call returned Call Returned Time 2112 Call Returned Date 08/15/20 Guide Changer Will see patient Free Text MDM Notes Free Text MDM Notes Seen by Dr Brokoe, will admit for intractable p elvic pain. [...] MD on at 1159 Addendum 1: 08/15/20 180 by José Rader MD Patient Addendum Addendum at 1806 at 0217 Addendum 2: 08/15/20 180 by José Rader MD Patient Addendum Addendum at 1807 Addendum 3: 08/15/200 by José Rader MD Patient Addendum Addendum at 1810 RPT #:[id number] END OF REPORT 2020-08-15 15:05:00-00:00 [facility] ([facility]) EMERGENCY PROVIDER REPORT REPORT#:[id number] REPORT STATUS: Signed DATE:08/15/20 TIME: 1505 PATIENT: LONA MARIE UNIT #: [id number] ROOM/BED: [facility] AGE: 30 SEX: F PCP PHYS: Zulay [...] MG X1ED STA 08/15 2011 D Cr /10 IV 08/15 Hydromorphone HCl 0.5 MG X1ED STA 08/15 1843 DC r / IV 08/15 1844 1904 Hydromorphone HCl 1 MG X1ED STA 08/15 1652 DCr /10 IV 08/15 1653 1724 Morphine Sulfate 4 MG X1ED STA 08/15 1503 DCr 1 / IV 08/15 1504 1553 Electrolytic, Caloric, And Jair Sig/Arina Start time Last Medication Dose Route Stop Time Status Admin Sodium Chloride 1,000 ML X1ED STA 08/15 1653 D C / IV 08/15 1654 1726 Sodium Chloride 1,000 ML X1ED STA 08/15 1515 DC / IV 08/15 1516 1552 Gastrointestinal Drugs Sig/Arina Start time Last Medication Dose Route Stop Time Status Admin Ondansetron HCl 4 MG X1ED STA 08/15 1503 DC 12/ IV 08/15 1504 1553 José Rader 08/15/20 [...] of vomiting dark content, patient went to [facility] ER and she got CT abdomen that [...] 84 12/ 0000 Resp 18 08/16 0000 Review of [...] % (Auto) (14.3 - 34.3 %) 24.1 Saline % (Auto) (5.1 - 10.4 %) 8.3 Eos % (Auto) (0.1 - 3.0 %) 1.0 Baso % (Auto) (0.1 - 1.0 %) 0.6 Neut # (Auto) (K/mm3) 5.9 Lymph # (Auto) (K/mm3) 2.2 Saline # (Auto) (K/mm3) 0.7 Eos # (Auto) (K/mm3) 0.09 Baso # (Auto) (K/mm3) 0.1 Miscellaneous Maternal Serum HCG <1 Urines Urine Color (YELLOW) YELLOW Urine Appearance (CLEAR) CLEAR Urine pH (5 - 9) 5.0 Ur Specific [place] (1.001 - 1.035) >1.035 H Urine Protein [...] 92 / 0000 O2 Delivery Room air 12/ 0000 Temp 37.0 12/ 0000 Pulse 84 12/ 0000 Resp 18 / 0000 All vital signs available at the [...] the current impression and/or treatment plan. The [facility] physician is now responsible for the patient's [...] Consultation Consultation Referral/Consult Name Zulay Brooke MD Guide Changer Called Hospitalist Requested Call Time 2112 Requested Call Date 08/15/20 Call Returned Call returned Call Returned Time 2112 Call Returned Date 08/15/20 Guide Changer Will see patient Free Text MDM Notes [...] MD Patient Addendum Addendum at 1810 RPT #:[id number] END OF REPORT 2020-08-05 21:32:00-00:[address] [facility] ([facility]) EMERGENCY PROVIDER REPORT REPORT#:[id number] REPORT STATUS: Signed DATE:08/05/20 TIME: 2131 PATIENT: LONA MARIE UNIT #: [id number] ROOM/BED: AGE: 30 SEX: F PCP PHYS: Akiko Awad MD SERVICE AUTHOR: Vivek Poon MD * ALL edits or amendments must be made on the VCV/[employer] document * HPI-Trauma Minor/Fall General Initial Greet [...] % (Auto) (14.0 - 32.0 %) 29.0 Saline % (Auto) (4.8 - 9.0 %) 5.0 Eos % (Auto) (0.3 - 3.7 %) 0.5 Baso % (Auto) (0.0 - 2.0 %) 0.5 Neut # (Auto) (2.0 - 7.6 x10 3/uL) 6.60 Lymph # (Auto) (1.0 - 3.8 x10 3/uL) 2.96 Saline # (Auto) (0.1 - 0.8 x10 3/uL) [...] 0.1 x10 3/uL) 0.0 0 Recent Impressions: RADIOLOGY - XR HAND 3 + V 08/05 Report Impression - Status: SIGNED Entered: 08/05/20202221 [...] By: Britt Castro M.D. RADIOLOGY - XR CHEST 1 V [...] Layla Burris D.O. CAT SCAN - CT HEAD/BRAIN [...] osseou s fracture or dislocation. Impression By: [email or web address] - Jeffy Burris D.O. Lab Imaging Statement Laboratory radiographic [...] she is neurovascularly intact. Time of Re-Eval 2300 Re-Eval Status Improved ED Course Medication(s) Ordered [...] )( Discharged to Home Yes )( Time 230 )( Date 08/05/20 Electronically Signed by Vivek Poon MD o n 08/05/20 at 2301 RPT #:[id number] END OF REPORT 2019-02-28 21:13:00-00:[address] [facility] ([facility]) EMERGENCY PROVIDER REPORT REPORT#:[id number] REPORT STATUS: Signed DATE:02/28/19 TIME: 2112 PATIENT: LONA MARIE UNIT #: [id number] ROOM/BED: AGE: 28 SEX: F PCP PHYS: Akiko Awad MD SERVICE AUTHOR: Cheyenne Pearson MD * ALL edits or amendments must be made on the VCV/computer document * HPI- Female General Confirmed Patient Yes Initial Greet Date/Time 02/28/192104 PCP Dr. Perkins-surgeon @[facility] Presentation Chief Complaint Abdominal pain Hx Obtained [...] occurred earlier today. Pt reports presenting to [facility] times since 08/22/2018 f or [...] she states she would not return to [facility]. Pt reports persisting vaginal bleeding, nausea, and [...] 444 O2 Delivery Room air 02/29 2120 Review [...] IUnit/L) 111 Serum , Qual (NEGATIVE) SERUM NEGATIV E [...] (Auto) (14.0 - 32.0 %) 10.5 L Saline % (Auto) (4.8 - 9.0 %) 4.6 L Eos % (Auto) (0.3 - 3.7 %) 0.0 L Baso % (Auto) (0.0 - 2.0 %) 0.1 Neut # (Auto) (2.0 - 7.6 x10 3/uL) 7.31 Lymph # (Auto) (1.0 - 3.8 x10 3/uL) 0.91 L Saline # (Auto) (0.1 - 0.8 x10 3/uL) [...] pH (5.0 - 7.0) 6.0 Ur Specific [place] (1.005 - 1.030) 1.002 L Urine Protein [...] ECG Interpretation Normal sinus rhythm, No ST FAITH, Normal ST waves, Normal intervals Rate 105 [...] patient for cont inuity of care to [facility] as that is where pt's surgeon is [...] Admin Sodium Chloride 0 ASDIR PRN 02/28 213 AC IV 03/01 2028 Sodium Chloride 1,000 ML X1ED STA 02/28 2129 DC 02/28 IV 02/28 Sodium Chloride 1,000 ML X1ED STA 02/29 2128 DC 02/28 IV 02/28 Gastrointestinal Drugs Sig/Arina Start time Last Medication [...] pain Disposition Decision Transfer )( Request Time 012 )( Request Date 03/01/19 Call Returned Time 013 Spoke with: Specialty physician (Dr. Parris amor) Receiving [facility] Transfer Accepted Yes Accepted by: Dr. Parris Mendoza )( Acceptance Time 014 )( Acceptance Date 03/01/19 Transfer Reason Continuity [...] by Rik Quintero on 03/01/19 at 0140 at 1509 RPT #:[id number] END OF REPORT 2019-01-25 14:38:00-00:[address] ([facility]) EMERGENCY PROVIDER REPORT REPORT#:[id number] REPORT STATUS: Signed DATE:01/25/19 TIME: 1438 PATIENT: LONA MARIE UNIT #: [id number] ROOM/BED: AGE: 28 SEX: F PCP PHYS: Akiko Awad MD SERVICE AUTHOR: Carolyn Dodson * ALL edits or amendments must be made on the el [employer]/computer document * HPI- Female General Confirmed Patient Yes Initial Greet Date/Time 01/25/19 1413 Presentation Chief Complaint Pelvic pain, Vaginal bleeding Hx Obtained From Patient )( Sudden in Onset? No Free Text HPI Notes Free Text HPI Notes 28yo F with PCOS presents to ED with 5 months of vaginal bleeding and worsening cramps. Seen by [employer] [facility] with [facility] 2 weeks ago showing PCOS [...] (Auto) (14.0 - 32.0 %) 33.1 H Saline % (Auto) (4.8 - 9.0 %) 6.9 Eos % (Auto) (0.3 - 3.7 %) 0.7 Baso % (Auto) (0.0 - 2.0 %) 0.8 Neut # (Auto) (2.0 - 7.6 x10 3/uL) 4.30 Lymph # (Auto) (1.0 - 3.8 x10 3/uL) 2.44 Saline # (Auto) (0.1 - 0.8 x10 3/uL) [...] ULTRASOUND - US TRANSVAGINAL NON OB 01/25 153 Report Impression - Status: SIGNED Entered: 01/25/2019 [...] Ramírez M.D. ULTRASOUND - US PELVIS COMPLETE 01/26 1532 Report Impression - Status: SIGNED Entered: 01/25/20191547 IMPRESSION: 1. 3 mm endometrium without focal [...] Discussed labs and imaging. Recommended f/u with [employer] for management ED Course Medication(s) Ordered Medication(s) Ordered: Central Nervous System Agents Sig/Arina Start time Last Medication Dose Route Stop Time Status Admin Morphine Sulfate 4 MG X1ED STA 01/25 1437 DC IV 01/25 143 1543 Gastrointestinal Drugs Sig/Arina Start time Last [...] to ED Prescriptions None at 1652 RPT #:[id number] END OF REPORT 2019-01-25 14:38:00-00:00 [facility] EMERGENCY PROVIDER REPORT REPORT#:[id number] REPORT STATUS: Signed DATE:01/25/19 TIME: 1437 PATIENT: LONA MARIE UNIT #: [id number] ROOM/BED: AGE: 28 SEX: F PCP PHYS: Akiko Awad MD SERVICE AUTHOR: Carolyn Dodson * ALL edits or amendments must be made on the VCV/computer document * Carolyn Dodson 01/25/19 1438: HPI- Female General Confirmed Patient Yes Presentation Chief Complaint Pelvic pain, Vaginal bleeding Hx Obtained From Patient )( Sudden in Onset? No Free Text HPI Notes Free Text HPI Notes 28yo F with PCOS presents to ED with 5 months of vaginal bleeding and worsening cramps. Seen by [employer] [facility] with [facility] 2 weeks ago showing PCOS and has diagnostic laparascopy scheduled for February. Removed IUD and gave Depo shot. Saw PCP today who did pelvic exam and referred pt to [facility] management but also recommended ED for immediate [...] (Auto) (14.0 - 32.0 %) 33.1 H Saline % (Auto) (4.8 - 9.0 %) 6.9 Eos % (Auto) (0.3 - 3.7 %) 0.7 Baso % (Auto) (0.0 - 2.0 %) 0.8 Neut # (Auto) (2.0 - 7.6 x10 3/uL) 4.30 Lymph # (Auto) (1.0 - 3.8 x10 3/uL) 2.44 Saline # (Auto) (0.1 - 0.8 x10 3/uL) [...] ULTRASOUND - US TRANSVAGINAL NON OB 01/25 776 Report Impression - Status: SIGNED Entered: 01/25/2019 7712 IMPRESSION: 1. 3 mm endometrium without focal [...] Discussed labs and imaging. Recommended f/u with [employer] for management ED Course Medication(s) Ordered Medication(s) [...] return to ED Prescriptions None Andrew Wyatt 01/25/19 1817: HPI- Female General Initial Greet Date/Time 01/25/19 1413 Physical Exam Vital Signs Vital Signs Interpretation Diagnostics Lab Results Interpretation Results Re-Evaluation MDM ED Course Medication(s) Ordered Patient Discharge Departure Vital Signs/Condition Vital Signs Supervising Physician Note MidLv Saw Pt Alone I have reviewed the PA/PATIENT LIAISON's note and plan of josé miguel andrews. I was available for consultation as needed at al l times during the patient's visit in the emergency department. I agree with the clinical impression , plan and disposition. at 1652 Electronically Signed by Andrew Wyatt MD on at 1817 RPT #:[id number] END OF REPORT
[2023-02-07] MEDS ORDERED: NA CHLORIDE 0.9% 500 ML ONE (03:48)
[2023-02-07 03:49] LABS: Hematocrit 35.9 % (36.0-45.0); Lymphocytes % 36.8 % (15.3-44.8); MCV 90.3 fL (80-100); MPV 6.6 fL (7.6-11.3); RBC Red Blood Cell Count 3.97 M/uL (3.86-4.86)
[2023-02-07] MEDS ORDERED: LORazepam 2 MG/ML VIAL ONE (04:05)
[2023-02-07 04:09] LABS: ALT/SGPT 24 U/L (13-56); AST/SGOT 15 U/L (15-37); Albumin 3.9 g/dL (3.4-5.0); Alkaline Phosphatase 67 U/L (45-117); BUN Blood Urea Nitrogen 11 mg/dL (7-18); Bicarbonate 27 mEq/L (21-32); Bilirubin Total 0.3 mg/dL (0.2-1.0); Glomerular Filtration Rate 96 ml/min (=/>90); Glucose Level 105 mg/dL (74-106); Magnesium 1.9 mg/dL (1.6-2.4); NT PRO-BNP 14 pg/mL (<125); Potassium 3.9 mEq/L (3.5-5.1); Protein, Total 7.2 g/dL (6.4-8.2); Sodium Level 137 mEq/L (136-145)
[2023-02-07 04:10] LABS: Bilirubin Direct < 0.1 mg/dL (0-0.2); Bilirubin Indirect, Calculated ND mg/dL (0.2-0.8); Troponin High Sensitivity < 3.0 pg/mL (<58.9)
--- NOTE | 2023-02-07 04:56 | EDPHYS ---
Physician Documentation [facility] Name: Lona Marie Age: 32 yrs Sex: Female : 1990 Arrival Date: 02/07/2023 Time: 03:20 Bed 7 Private MD: ED Physician Markell Worthington HPI: 02/08 03:46 This 32 yrs old Female presents to ER via Ambulatory with complaints of Palpitations, kdr Nausea, Dizziness, Back Pain. 03:46 Patient presents complaining of chest pain that started earlier today. She states that kdr she has been awakened twice with the chest discomfort. She feels as if something is eminently wrong and is very anxious about her condition. She describes the chest pain as sharp that her left arm was going numb. She also has some tight back pain that radiates to her left side. She is feeling dizzy and lightheaded. She indicated that she has seen cardiology and they want her to have an echo but has not as yet been done. Onset: The symptoms/episode began/occurred suddenly, just prior to arrival. Severity of symptoms: At their worst the symptoms were moderate in the emergency department the symptoms are unchanged. The patient has experienced similar episodes in the past, a few times. The patient has not recently seen a physician. Patient appears to be very anxious and concerned about her general health condition. 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 - Social history:: Smoking status: Patient reports the use of cigarette tobacco products, denies chronic smoking, but will smoke occasionally. ROS: 02/08 03:46 Constitutional: Negative for fever, chills, and weight loss, Eyes: Negative for injury, kdr pain, redness, and discharge, ENT: Negative for injury, pain, and discharge, Neck: Negative for injury, pain, and swelling, Respiratory: Negative for shortness of breath, cough, wheezing, and pleuritic chest pain, Abdomen/GI: Negative for abdominal pain, nausea, vomiting, diarrhea, and constipation, Back: Negative for injury and pain, : Negative for injury, bleeding, discharge, and swelling, MS/Extremity: Negative for injury and deformity, Skin: Negative for injury, rash, and discoloration, Neuro: Negative for headache, weakness, numbness, tingling, and seizure activity. Psych: Negative for depression, anxiety, suicide ideation, homicidal ideation, and hallucinations, Allergy/Immunology: Negative for hives, rash, and allergies, Endocrine: Negative for neck swelling, polydipsia, polyuria, polyphagia, and marked weight changes, Hematologic/Lymphatic: Negative for swollen nodes, abnormal bleeding, and unusual bruising. Cardiovascular: Positive for chest pain, palpitations, Negative for edema, orthopnea. Exam: 03:46 Constitutional: This is a well developed, well nourished patient who is awake, alert, kdr and in no acute distress. Head/Face: Normocephalic, atraumatic. Eyes: Pupils equal round and reactive to light, extra-ocular motions intact. Lids and lashes normal. Conjunctiva and sclera are non-icteric and not injected. Cornea within normal limits. Periorbital areas with no swelling, redness, or edema. Neck: Trachea midline, no thyromegaly or masses palpated, and no cervical lymphadenopathy. Supple, full range of motion without nuchal rigidity, or vertebral point tenderness. No Meningismus. Chest/axilla: Normal chest wall appearance and motion. Nontender with no deformity. No lesions are appreciated. Cardiovascular: Regular rate and rhythm with a normal S1 and S2. No gallops, murmurs, or rubs. Normal PMI, no JVD. No pulse deficits. Respiratory: Lungs have equal breath sounds bilaterally, clear to auscultation and percussion. No rales, rhonchi or wheezes noted. No increased work of breathing, no retractions or nasal flaring. Abdomen/GI: Soft, non-tender, with normal bowel sounds. No distension or tympany. No guarding or rebound. No evidence of tenderness throughout. Back: No spinal tenderness. No costovertebral tenderness. Full range of motion. Skin: Warm, dry with normal turgor. Normal color with no rashes, no lesions, and no evidence of cellulitis. MS/ Extremity: Pulses equal, no cyanosis. Neurovascular intact. Full, normal range of motion. Neuro: Awake and alert, GCS 15, oriented to person, place, time, and situation. Cranial nerves II-XII grossly intact. Motor strength 5/5 in all extremities. Sensory grossly intact. Cerebellar exam normal. Normal gait. 03:46 Psych: Behavior/mood is pleasant, cooperative, anxious, Affect is animated, Oriented to person, place, time. Vital Signs: 02/07 03:27 Weight 67.59 kg; Height 5 ft. 3 in. ; kd3 03:44 BP 124 / 82; Pulse 84; Resp 23; Temp 98; Pulse Ox 99% ; Weight 67.59 kg; Height 5 ft. 3 vc1 in. ; 04:10 BP 120 / 65; Pulse 94; Resp 13; vc1 04:56 BP 120 / 77; Pulse 90; Resp 24; vc1 03:44 Body Mass Index 26.39 (67.59 kg, 160.02 cm) vc1 04:10 pt refuses pulse ox, states allergic to adhesives vc1 MDM: 04:55 Patient medically screened. kdr 02/08 03:48 Data reviewed: vital signs, nurses notes, lab test result(s). [facility] 02/07 03:28 Order name: Basic Metabolic Panel; Complete Time: 04:47 kdr 02/07 03:28 Order name: CBC with Diff; Complete Time: 04:47 kdr 02/07 03:28 Order name: LFT's; Complete Time: 04:47 kdr 02/07 03:28 Order name: Magnesium; Complete Time: 04:47 kdr 02/07 03:28 Order name: NT PRO-BNP; Complete Time: 04:47 kdr 02/07 03:28 Order name: Troponin HS; Complete Time: 04:47 kdr 02/07 03:53 Order name: D-Dimer; Complete Time: 04:47 kdr 02/07 03:28 Order name: XRAY Chest (1 view) kdr 02/07 03:28 Order name: EKG; Complete Time: 03:28 kdr 02/07 03:28 Order name: Cardiac monitoring; Complete Time: 03:43 kdr 02/07 03:28 Order name: EKG - Nurse/Tech; Complete Time: 03:43 kdr 02/07 03:28 Order name: IV Saline Lock; Complete Time: 03:43 kdr 02/07 03:28 Order name: Labs collected and sent; Complete Time: 03:43 kdr 02/07 03:28 Order name: O2 Per Protocol; Complete Time: : kdr 02/07 03:28 Order name: O2 Sat Monitoring; Complete Time: :43 kdr Administered Medications: 02/07 03:44 Drug: NS 0.9% IV 500 ml Route: IV; Rate: bolus; Site: right antecubital; vc1 04:30 Follow up: IV Status: Completed infusion; IV Intake: 500ml vc1 04:00 Drug: Ativan IVP 1 mg Route: IVP; Site: right antecubital; ll3 05:04 Follow up: Response: No adverse reaction; Marked relief of symptoms vc1 Disposition Summary: 02/07/23 04:55 Discharge Ordered Location: Home kdr Problem: an acute exacerbation kdr Symptoms: are resolved kdr Condition: Stable kdr Diagnosis - Anxiety disorder, unspecified kdr Followup: kdr - With: Private Physician - When: 1 - 2 days - Reason: If symptoms return, Further diagnostic work-up, Recheck today's complaints, Continuance of care, Re-evaluation by your physician Discharge Instructions: - Discharge Summary Sheet kdr - Panic Attack, [id number] kdr - Generalized Anxiety Disorder, Adult kdr Forms: - Medication Reconciliation Form kdr - Thank You Letter kdr Prescriptions: - Ativan 1 mg Oral Tablet - take 1 tablet by ORAL route every 8 hours As needed; 6 tablet; Refills: 0, kdr Product Selection Permitted Signatures: Dispatcher [employer] Markell Lombardi MD MD kdr José Antonio Bullard RN RN ll3 Kellee Platt RN RN kd3 Shelby Cuellar, RN RN vc1
--- NOTE | 2023-02-07 04:56 | ER ---
Nurse's Notes [facility] Name: Lona Marie Age: 32 yrs Sex: Female : 1990 Arrival Date: 02/07/2023 Time: 03:20 Bed 7 Private MD: Diagnosis: Anxiety disorder, unspecified Presentation: 02/07 03:27 Chief complaint: Patient states: I have been having chest pains that started today and kd3 have woken me up from my sleep twice tonight. The pain in my chest is sharp and it is making my left arm go numb. I am also having some tight back pain that radiates to my left side. It is making me feel dizzy. My garbage collector says that i need an echo and I haven't done that yet. Coronavirus screen: Vaccine status: Patient reports receiving the 2nd dose of the covid vaccine. Ebola Screen: No symptoms or risks identified at this time. Initial Sepsis Screen: Does the patient meet any 2 criteria? No. Patient's initial sepsis screen is negative. Does the patient have a suspected source of infection? No. Patient's initial sepsis screen is negative. Risk Assessment: Do you want to hurt yourself or someone else? Patient reports no desire to harm self or others. Onset of symptoms was February 07, 2023. 03:27 Method Of Arrival: Ambulatory kd3 03:27 Acuity: SMITH 3 kd3 Triage Assessment: 03:29 General: Appears uncomfortable, Behavior is calm, cooperative. Pain: Complains of pain kd3 in anterior aspect of left upper chest Pain radiates to left arm. GI: Reports nausea. 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 - Social history:: Smoking status: Patient reports the use of cigarette tobacco products, denies chronic smoking, but will smoke occasionally. Screenin:30 [facility] ED Fall Risk Assessment (Adult) History of falling in the last 3 months, vc1 including since admission No falls in past 3 months (0 pts) Confusion or Disorientation No (0 pts) Intoxicated or Sedated No (0 pts) Impaired Gait Mobility Assist Device Used No (0 pt) Altered Elimination No (0 pt) Score/Fall Risk Level 0 - 2 = Low Risk Oriented to surroundings, Maintained a safe environment, Educated pt \T\ family on fall prevention, incl call for assistance when getting out of bed. Abuse screen: Denies threats or abuse. Nutritional screening: No deficits noted. Tuberculosis screening: No symptoms or risk factors identified. Assessment: 03:30 GI: Abdomen is flat, non-distended. vc1 05:02 Reassessment: Patient and/or family updated on plan of care and expected duration. Pain vc1 level reassessed. Patient is alert, oriented x 3, equal unlabored respirations, skin warm/dry/pink. Patient states symptoms have improved. Vital Signs: 03:27 Weight 67.59 kg; Height 5 ft. 3 in. ; kd3 03:44 BP 124 / 82; Pulse 84; Resp 23; Temp 98; Pulse Ox 99% ; Weight 67.59 kg; Height 5 ft. 3 vc1 in. ; 04:10 BP 120 / 65; Pulse 94; Resp 13; vc1 04:56 BP 120 / 77; Pulse 90; Resp 24; vc1 03:44 Body Mass Index 26.39 (67.59 kg, 160.02 cm) vc1 04:10 pt refuses pulse ox, states allergic to adhesives vc1 ED Course: 03:20 Patient arrived in ED. ja2 03:27 Markell Worthington MD is Attending Physician. kdr 03:29 Triage completed. kd3 03:29 Arm band placed on right wrist. kd3 03:30 Patient has correct armband on for positive identification. Bed in low position. Call vc1 light in reach. Client placed on continuous cardiac and pulse oximetry monitoring. NIBP monitoring applied. 03:42 Inserted saline lock: 20 gauge in right antecubital area, using aseptic technique. vc1 Blood collected. 03:43 Basic Metabolic Panel Sent. vc1 03:43 CBC with Diff Sent. vc1 03:43 LFT's Sent. vc1 03:43 Magnesium Sent. vc1 03:43 NT PRO-BNP Sent. vc1 03:43 Troponin HS Sent. vc1 03:50 XRAY Chest (1 view) In Process Unspecified. EDMS 05:02 No provider procedures requiring assistance completed. IV discontinued, intact, vc1 bleeding controlled, No redness/swelling at site. Pressure dressing applied. Administered Medications: 03:44 Drug: NS 0.9% IV 500 ml Route: IV; Rate: bolus; Site: right antecubital; vc1 04:30 Follow up: IV Status: Completed infusion; IV Intake: 500ml vc1 04:00 Drug: Ativan IVP 1 mg Route: IVP; Site: right antecubital; ll3 05:04 Follow up: Response: No adverse reaction; Marked relief of symptoms vc1 Medication: 05:03 VIS not applicable for this client. vc1 Intake: 04:30 IV: 500ml; Total: 500ml. vc1 Outcome: 04:55 Discharge ordered by . kdr 05:02 Discharged to home ambulatory, with significant other. vc1 05:02 Condition: good 05:03 Discharge instructions given to patient, Instructed on discharge instructions, follow vc1 up and referral plans. medication usage, Demonstrated understanding of instructions, follow-up care, medications, Prescriptions given X 1. 05:17 Patient left the ED. vc1 Signatures: Dispatcher [employer] EDAR Markell Worthington MD MD kdr Alexander, Jessica ja2 José Antonio Bullard RN RN ll3 Kellee Platt RN RN kd3 Shelby Cuellar RN RN vc1 Corrections: (The following items were deleted from the chart) 05:09 05:03 Discharge instructions given to patient, Instructed on discharge instructions, vc1 follow up and referral plans. Demonstrated understanding of instructions, follow-up care, vc1
[2023-02-07 05:28] VITALS: TEMP 98; O2SAT 99
[2023-02-07 05:39] VITALS: BP 120/77
--- NOTE | 2023-02-07 14:17 | EKG ---
Test Date: 2023-02-07 Test Time: 03:34:51 Utilities Service Investigator: CARROL MEASUREMENT RESULTS: Intervals: Rate: 81 UT: 154 QRSD: 68 QT: 348 QTc: 404 [place]: P: 60 UT: 154 QRS: 78 T: 59 INTERPRETIVE STATEMENTS: Sinus rhythm with marked sinus arrhythmia Otherwise normal ECG Compared to ECG 06/28/2022 23:41:04 No significant changes Electronically Signed On 02-07-23 14:16:29 CDT by Alan Owen
--- NOTE | 2023-02-08 14:52 | RAD REPORT ---
EXAM DESCRIPTION: RAD - Chest Single View - 02/07/2023 3:48 am CLINICAL HISTORY: The patient is 32 years old and is Female; Chest pain;Palpitations [facility] MAIN TECHNIQUE: Frontal view of the chest. COMPARISON: 06/29/2022 chest radiograph FINDINGS: LUNGS: Unremarkable. No consolidation. PLEURAL SPACE: Unremarkable. No pleural effusion. No pneumothorax. HEART: Unremarkable. No cardiomegaly. MEDIASTINUM: Stable cardiomediastinal silhouette. BONES/JOINTS: Unremarkable. IMPRESSION: No acute findings in the chest. Electronically signed by: Jose Antonio Bates MD 02/07/2023 4:19 AM CDT Due to temporary technical issues with the PACS/Fluency reporting system, reports are being signed by the in house radiologist without review as a courtesy to ensure prompt reporting. The interpreting r adiologist is fully responsible for the content of the report.
== END 2023-02-07 05:17 | disposition home or self-care (01) ==
LOC: ER 03:20
DX: F41.9 Anxiety disorder, unspecified (principal); F17.210 Nicotine dependence, cigarettes, uncomplicated; Z88.0 Allergy status to penicillin; Z88.1 Allergy status to other antibiotic agents; Z88.5 Allergy status to narcotic agent; Z88.8 Allergy status to other drugs, medicaments and biological substances; Z91.040 Latex allergy status; Z91.048 Other nonmedicinal substance allergy status
CPT/HCPCS: 96361; 93005; 85025; 80048; 36415; 83735; 85379; 80076; 84484; 83880; 71045; 96374; 99284; J7040

== ENCOUNTER 2023-03-03 17:21 | Emergency (ER) | payer OTHER ==
[2023-03-03] MEDS ORDERED: NA CHLORIDE 0.9% 1,000 ML ONE (17:40)
[2023-03-03] MEDS ORDERED: DIPHENHYDRAMINE 50 MG/ML VIAL ONE (17:40)
[2023-03-03] MEDS ORDERED: ONDANSETRON 4 MG/2 ML VIAL ONE (17:40)
--- OUTSIDE RECORDS SUMMARY | 2023-03-03 17:40 | XMS REPORT | Continuity of Care Document ---
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 00:00: mouth [place] 00 every 6 Medical (six) Branch hours as needed for Nausea and Vomiting (N/V). sucralfate 2022-0 Yes [id number] 1g Take 1 U nivers 1 gram 5-12 tablet by ity of tablet 00:00: mouth [place] 00 before Medical meals and Branch at bedtime. esomeprazol 2022-0 Yes [id number] 40mg Take 1 Univers e (NEXIUM) 5-12 capsule by ity of 40 mg 00:00: mouth [place] capsule 00 daily with Medica l breakfast. Branch maalox:diph 3-0 Yes [id number] 15mL Take 15 mL [facility] enhydrAMINE 5-12 by mouth ity of :lidocaine 00:00: as needed [place] 2 % viscous 00 for Oral Medi shanice 1:1:1 mucositis Branch (EPIGASTRI C PAIN). proMETHazin 3-0 Yes [id number] 25mg Take 1 [facility] e 25 mg 5-12 tablet by ity of tablet 00:00: mouth [place] 00 every 6 Medical (six) Branch hours as needed for Nausea and Vomiting (N/V). sucralfate 2022-0 Yes [id number] 1g Take 1 U nivers 1 gram 5-12 tablet by ity of tablet 00:00: mouth [place] 00 before Medical meals and Branch at bedtime. esomeprazol 2022-0 Yes [id number] 40mg Take 1 Univers e (NEXIUM) 5-12 capsule by ity of 40 mg 00:00: mouth [place] capsule 00 daily with Medica l breakfast. Branch maalox:diph 2022-0 Yes [id number] 15mL Take 15 mL [facility] enhydrAMINE 5-12 by mouth ity of :lidocaine 00:00: as needed [place] 2 % viscous 00 for Oral Medi shanice 1:1:1 mucositis Branch (EPIGASTRI C PAIN). proMETHazin 2022-0 Yes [id number] 25mg Take 1 [facility] e 25 mg 5-12 tablet by ity of tablet 00:00: mouth [place] 00 every 6 Medical (six) Branch hours as needed for Nausea and Vomiting (N/V). sucralfate 2022-0 Yes [id number] 1g Take 1 U nivers 1 gram 5-12 tablet by ity of tablet 00:00: mouth [place] 00 before Medical meals and Branch at bedtime. esomeprazol 2022-0 Yes [id number] 40mg Take 1 Univers e (NEXIUM) 5-12 capsule by ity of 40 mg 00:00: mouth [place] capsule 00 daily with Medica l breakfast. Branch ondansetron 2022-0 3- No [id number] 4mg Take 1 [facility] (ZOFRAN) 4 5-12 06-27 tablet by ity of mg tablet 00:00: 00:00 mouth [place] 00 :00 every 8 Medical (eight) Branch hours as needed for Nausea and Vomiting (N/V). proMETHazin 3-0 3- No [id number] 25mg Take 1 [facility] e 25 mg 5-12 05-12 tablet by ity of tablet 00:00: 00:00 mouth [place] 00 :00 every 6 Medical (six) Branch hours as needed for Nausea and Vomiting (N/V). sucralfate 3-0 3- No [id number] 1g Take 1 [facility] 1 gram 5-12 05-12 tablet by ity of tablet 00:00: 00:00 mouth [place] 00 :00 before Medical meals and Branch at bedtime. esomeprazol 2022- No [id number] 40mg Take 1 Univers e (NEXIUM) 01-15 capsule by it y of 40 mg [...] 0145, 15 mL Routine iopamidol 2022- No [id number] 70mL 70 mL, Univers (ISOVUE 12-30 Intravenou ity o f 370-500 mL) 17:30: 17:25 s, ONCE, 1 [place] injection 00 :00 dose, On Medica l 70 mL Wed Branch 12/30/22 at 1230, Routine nitroglycer No [id number] .8mg 0.8 mg, Univers in 12-30 Sublingual ity of (NITROSTAT) 17:15: 17:15 , ONCE, 1 [place] sublingual 00 :00 dose, On Medic al tablet 0.8 Wed Branch mg 12/30/22 at 1215, Routine metoprolol 2022- No [id number] 100mg 100 mg, Univers tartrate 12-30 Oral, ity of (LOPRESSOR) 16:15: 16:41 ONCE, 1 [place] tablet 100 00 :00 dose, On Medic al mg [facility] Branch 12/30/22 at 1141, Routine valACYclovi Yes [id number] 1g Take 1 Univers r 1 gram 4-21 tablet by ity of tablet 00:00: mouth in [place] [address] the Medical morning Branch and 1 tablet at noon and 1 tablet in the evening. valACYclovi Yes [id number] 1g Take 1 Univers r 1 gram 4-21 tablet by ity of tablet 00:00: mouth in [place] the morning Branch and 1 tablet at noon and 1 tablet in the evening. valACYclovi 3-0 Yes [id number] 1g Take 1 Univers r 1 gram 4-21 tablet by ity of tablet 00:00: mouth in [place] 00 the Medical morning Branch and 1 tablet at noon and 1 tablet in the evening. valACYclovi 3-0 Yes [id number] 1g Take 1 Univers r 1 gram 4-21 tablet by ity of tablet 00:00: mouth in [place] 00 the Medical morning Branch and 1 tablet at noon and 1 tablet in the evening. valACYclovi 3-0 Yes [id number] 1g Take 1 Univers r 1 gram 4-21 tablet by ity of tablet 00:00: mouth in [place] 00 the Medical morning Branch and 1 tablet at noon and 1 tablet in the evening. valACYclovi 3-0 Yes [id number] 1g Take 1 Univers r 1 gram 4-21 tablet by ity of tablet 00:00: mouth in [place] 00 the Medical morning Branch and 1 tablet at noon and 1 tablet in the evening. valACYclovi 2022-0 Yes [id number] 1g Take 1 Univers r 1 gram 4-21 tablet by ity of tablet 00:00: mouth in [place] 00 the Medical morning Branch and 1 tablet at noon and 1 tablet in the evening. valACYclovi 2022-0 Yes [id number] 1g Take 1 Univers r 1 gram 4-21 tablet by ity of tablet 00:00: mouth in [place] 00 the Medical morning Branch and 1 tablet at noon and 1 tablet in the evening. valACYclovi 3-0 Yes [id number] 1g Take 1 Univers r 1 gram 4-21 tablet by ity of tablet 00:00: mouth in [place] 00 the Medical morning Branch and 1 tablet at noon and 1 tablet in the evening. valACYclovi 3-0 Yes [id number] 1g Take 1 Univers r 1 gram 4-21 tablet by ity of tablet 00:00: mouth in [place] 00 the Medical morning Branch and 1 tablet at noon and 1 tablet in the evening. valACYclovi 2023-0 Yes [id number] 1g Take 1 Univers r 1 gram 4-21 tablet by ity of tablet 00:00: mouth in [place] 00 the Medical morning Branch and 1 tablet at noon and 1 tablet in the evening. valACYclovi 2023-0 Yes [id number] 1g Take 1 Univers r 1 gram 4-21 tablet by ity of tablet 00:00: mouth in [place] [address] [facility] morning [place] and 1 tablet at noon and 1 tablet in the evening. valACYclovi Yes [id number] 1g Take 1 Univers r 1 gram 4-21 tablet by ity of tablet 00:00: mouth in [place] 00 the [facility] and 1 tablet at noon and 1 tablet in the evening. valACYclovi Yes [id number] 1g Take 1 Univers r 1 gram 4-21 tablet by ity of tablet 00:00: mouth in [place] 00 the [facility] and 1 tablet at noon and 1 tablet in the evening. valACYclovi 2022- No [id number] 1g Take 1 Univers r 1 gram 4-21 05-12 tablet by ity o f tablet 00:00: 00:00 mouth in [place] 00 :00 the [facility] and 1 tablet at noon and 1 tablet in the evening. valACYclovi 2022- Yes [id number] 1g Take 1 Univers r 1 gram 4-21 -29 tablet by ity o f tablet 00:00: 04:59 mouth in [place] 00 :00 the [facility] and 1 tablet at noon and 1 tablet in the evening. Do all this for 7 days. valACYclovi 2022- No [id number] 1g Take 1 Univers r 1 gram 4-21 04-21 tablet by ity o f tablet 00:00: 00:00 mouth in [place] 00 :00 the [facility] and 1 tablet at noon and 1 tablet in the evening. Do all this for 7 days. levETIRAcet Yes TWICE Unive rs am 500 mg 4-18 DAILY. ity of tablet 09:12: [address] gabapentin Yes gabapentin U nivers 300 mg 4-18 300 mg ity of capsule 09:12: capsule [address] famotidine Yes famotidine U nivers 20 mg 4-18 20 mg ity of tablet 09:12: tablet [address] clonazePAM 2022- Yes clonazepam U nivers 0.5 mg 4-18 0.5 mg ity of tablet 09:12: tablet [place] [address] TAKE 1 Medical TABLET BY Branch MOUTH EVERY DAY AT BEDTIME NEEDED FOR SEVERE ANXIETY/PA STACEY ATTACK buPROPion Yes 300mg Take 1 Unive rs XL 300 mg 4-18 tablet by ity o f 24 hr 09:12: mouth. [place] tablet 14 [facility] buprenorphi Yes [place] Uni vers ne [...] mg 4-18 DAILY. ity of tablet 09:12: [address] gabapentin Yes gabapentin U nivers 300 mg 4-18 300 mg ity of capsule 09:12: capsule [address] famotidine Yes famotidine U nivers 20 mg 4-18 20 mg ity of tablet 09:12: tablet [address] clonazePAM Yes clonazepam U nivers 0.5 mg 4-18 0.5 mg ity of tablet 09:12: tablet [place] [address] TAKE 1 Medical TABLET BY Branch MOUTH EVERY DAY AT BEDTIME NEEDED FOR SEVERE ANXIETY/PA STACEY ATTACK buPROPion Yes 300mg Take 1 Unive rs XL 300 mg 4-18 tablet by ity o f 24 hr 09:12: mouth. [place] tablet 14 [facility] buprenorphi Yes [place] Uni vers ne [...] mg 4-18 DAILY. ity of tablet 09:12: [address] gabapentin Yes gabapentin U nivers 300 mg 4-18 300 mg ity of capsule 09:12: capsule [address] famotidine Yes famotidine U nivers 20 mg 4-18 20 mg ity of tablet 09:12: tablet [address] clonazePAM Yes clonazepam U nivers 0.5 mg 4-18 0.5 mg ity of tablet 09:12: tablet [place] [address] TAKE 1 Medical TABLET BY Branch MOUTH EVERY DAY AT BEDTIME NEEDED FOR SEVERE ANXIETY/PA STACEY ATTACK buPROPion Yes 300mg Take 1 Unive rs XL 300 mg 4-18 tablet by ity o f 24 hr 09:12: mouth. [address] buprenorphi Yes [place] Uni vers ne [...] mg 4-18 DAILY. ity of tablet 09:12: [address] gabapentin Yes gabapentin U nivers 300 mg 4-18 300 mg ity of capsule 09:12: capsule [address] famotidine Yes famotidine U nivers 20 mg 4-18 20 mg ity of tablet 09:12: tablet [address] clonazePAM 0 Yes clonazepam U nivers 0.5 mg 4-18 0.5 mg ity of tablet 09:12: tablet [place] 14 TAKE 1 Medical TABLET BY Branch MOUTH EVERY DAY AT BEDTIME NEEDED FOR SEVERE ANXIETY/PA STACEY ATTACK buPROPion 0 Yes 300mg Take 1 Unive rs XL 300 mg 4-18 tablet by ity o f 24 hr 09:12: mouth. [place] tablet [address] [place] [address] buprenorphi Yes [place] [facility] vers ne HCL [...] [place] [facility] aerosol inhaler levETIRAcet Yes TWICE Unive rs am 500 mg 4-18 DAILY. ity of tablet 09:12: [address] gabapentin Yes gabapentin U nivers 300 mg 4-18 300 mg ity of capsule 09:12: capsule [address] famotidine Yes famotidine U nivers 20 mg 4-18 20 mg ity of tablet 09:12: tablet [address] clonazePAM 2022-0 Yes clonazepam U nivers 0.5 mg 4-18 0.5 mg ity of tablet 09:12: tablet [place] 14 TAKE 1 Medical TABLET BY Branch MOUTH EVERY DAY AT BEDTIME NEEDED FOR SEVERE ANXIETY/PA STACEY ATTACK buPROPion 2022-0 Yes 300mg Take 1 Unive rs XL 300 mg 4-18 tablet by ity o f 24 hr 09:12: mouth. [place] tablet 14 [facility] buprenorphi Yes [place] Uni vers ne [...] mg 4-18 DAILY. ity of tablet 09:12: [address] gabapentin Yes gabapentin U nivers 300 mg 4-18 300 mg ity of capsule 09:12: capsule [address] famotidine Yes famotidine U nivers 20 mg 4-18 20 mg ity of tablet 09:12: tablet [address] clonazePAM 0 Yes clonazepam U nivers 0.5 mg 4-18 0.5 mg ity of tablet 09:12: tablet [place] [address] TAKE 1 Medical TABLET BY Branch MOUTH EVERY DAY AT BEDTIME NEEDED FOR SEVERE ANXIETY/PA STACEY ATTACK buPROPion 0 Yes 300mg Take 1 Unive rs XL 300 mg 4-18 tablet by ity o f 24 hr 09:12: mouth. [place] tablet [address] [place] [address] buprenorphi Yes [place] Uni vers ne HCL [...] mg 4-18 DAILY. ity of tablet 09:12: [address] gabapentin 0 Yes gabapentin U nivers 300 mg 4-18 300 mg ity of capsule 09:12: capsule [address] famotidine 2022-0 Yes famotidine U nivers 20 mg 4-18 20 mg ity of tablet 09:12: tablet [address] clonazePAM 2022-0 Yes clonazepam U nivers 0.5 mg 4-18 0.5 mg ity of tablet 09:12: tablet [place] 14 TAKE 1 Medical TABLET BY Branch MOUTH EVERY DAY AT BEDTIME NEEDED FOR SEVERE ANXIETY/PA STACEY ATTACK buPROPion 2022-0 Yes 300mg Take 1 Unive rs XL 300 mg 4-18 tablet by ity o f 24 hr 09:12: mouth. [facility] 14 [facility] buprenorphi Yes [place] Uni vers ne [...] mg 4-18 DAILY. ity of tablet 09:12: [address] gabapentin 2022-0 Yes gabapentin U nivers 300 mg 4-18 300 mg ity of capsule 09:12: capsule [address] famotidine 2022-0 Yes famotidine U nivers 20 mg 4-18 20 mg ity of tablet 09:12: tablet [address] clonazePAM 2022-0 Yes clonazepam U nivers 0.5 mg 4-18 0.5 mg ity of tablet 09:12: tablet [place] 14 TAKE 1 Medical TABLET BY Branch MOUTH EVERY DAY AT BEDTIME NEEDED FOR SEVERE ANXIETY/PA STACEY ATTACK buPROPion Yes 300mg Take 1 Unive rs XL 300 mg 4-18 tablet by ity o f 24 hr 09:12: mouth. [place] tablet 14 [facility] buprenorphi Yes [place] Uni vers ne [...] mg 4-18 DAILY. ity of tablet 09:12: [address] gabapentin Yes gabapentin U nivers 300 mg 4-18 300 mg ity of capsule 09:12: capsule [address] famotidine 0 Yes famotidine U nivers 20 mg 4-18 20 mg ity of tablet 09:12: tablet [address] clonazePAM 0 Yes clonazepam U nivers 0.5 mg 4-18 0.5 mg ity of tablet 09:12: tablet [place] [address] TAKE 1 Medical TABLET BY Branch MOUTH EVERY DAY AT BEDTIME NEEDED FOR SEVERE ANXIETY/PA STACEY ATTACK buPROPion 0 Yes 300mg Take 1 Unive rs XL 300 mg 4-18 tablet by ity o f 24 hr 09:12: mouth. [place] tablet 14 [facility] buprenorphi Yes [place] Uni vers ne [...] mg 4-18 DAILY. ity of tablet 09:12: [address] gabapentin Yes gabapentin U nivers 300 mg 4-18 300 mg ity of capsule 09:12: capsule [address] famotidine Yes famotidine U nivers 20 mg 4-18 20 mg ity of tablet 09:12: tablet [address] clonazePAM Yes clonazepam U nivers 0.5 mg 4-18 0.5 mg ity of tablet 09:12: tablet [place] [address] TAKE 1 Medical TABLET BY Branch MOUTH EVERY DAY AT BEDTIME NEEDED FOR SEVERE ANXIETY/PA STACEY ATTACK buPROPion Yes 300mg Take 1 Unive rs XL 300 mg 4-18 tablet by ity o f 24 hr 09:12: mouth. [address] buprenorphi Yes [place] Uni vers ne [...] mg 4-18 DAILY. ity of tablet 09:12: [address] gabapentin Yes gabapentin U nivers 300 mg 4-18 300 mg ity of capsule 09:12: capsule [address] famotidine 2022-0 Yes famotidine U nivers 20 mg 4-18 20 mg ity of tablet 09:12: tablet [address] clonazePAM 2022-0 Yes clonazepam U nivers 0.5 mg 4-18 0.5 mg ity of tablet 09:12: tablet [place] 14 TAKE 1 Medical TABLET BY Branch MOUTH EVERY DAY AT BEDTIME NEEDED FOR SEVERE ANXIETY/PA STACEY ATTACK buPROPion 0 Yes 300mg Take 1 Unive rs XL 300 mg 4-18 tablet by ity o f 24 hr 09:12: mouth. [place] tablet 14 [facility] buprenorphi Yes [place] Uni vers ne [...] mg 4-18 DAILY. ity of tablet 09:12: [address] gabapentin 2022-0 Yes gabapentin U nivers 300 mg 4-18 300 mg ity of capsule 09:12: capsule [address] famotidine 2022-0 Yes famotidine U nivers 20 mg 4-18 20 mg ity of tablet 09:12: tablet [address] clonazePAM 2022-0 Yes clonazepam U nivers 0.5 mg 4-18 0.5 mg ity of tablet 09:12: tablet [place] [address] TAKE 1 Medical TABLET BY Branch MOUTH EVERY DAY AT BEDTIME NEEDED FOR SEVERE ANXIETY/PA STACEY ATTACK buPROPion 2022-0 Yes 300mg Take 1 Unive rs XL 300 mg 4-18 tablet by ity o f 24 hr 09:12: mouth. [place] tablet [address] [place] [address] buprenorphi Yes [place] Uni vers ne HCL [...] mg 4-18 DAILY. ity of tablet 09:12: [address] gabapentin Yes gabapentin U nivers 300 mg 4-18 300 mg ity of capsule 09:12: capsule [address] famotidine Yes famotidine U nivers 20 mg 4-18 20 mg ity of tablet 09:12: tablet [address] clonazePAM Yes clonazepam U nivers 0.5 mg 4-18 0.5 mg ity of tablet 09:12: tablet [place] [address] TAKE 1 Medical TABLET BY Branch MOUTH [...] Med ical ion Branch aerosol inhaler levETIRAcet 2023-0 Yes TWICE Unive rs am 500 mg 4-18 DAILY. ity of tablet 09:12: [address] gabapentin 0 Yes gabapentin U nivers 300 mg 4-18 300 mg ity of capsule 09:12: capsule [address] famotidine 2022-0 Yes famotidine U nivers 20 mg 4-18 20 mg ity of tablet 09:12: tablet [address] clonazePAM 2022-0 Yes clonazepam U nivers 0.5 mg 4-18 0.5 mg ity of tablet 09:12: tablet [place] 14 TAKE 1 Medical TABLET BY Branch MOUTH EVERY DAY AT BEDTIME NEEDED FOR SEVERE ANXIETY/PA STACEY ATTACK buprenorphi 0 Yes [place] Uni vers ne [...] mg 4-18 DAILY. ity of tablet 09:12: [address] gabapentin Yes gabapentin U nivers 300 mg 4-18 300 mg ity of capsule 09:12: capsule [address] famotidine 2022-0 Yes famotidine U nivers 20 mg 4-18 20 mg ity of tablet 09:12: tablet [address] clonazePAM 2022-0 Yes clonazepam U nivers 0.5 mg 4-18 0.5 mg ity of tablet 09:12: tablet [place] 14 TAKE 1 Medical TABLET BY Branch MOUTH EVERY DAY AT BEDTIME NEEDED FOR SEVERE ANXIETY/PA STACEY ATTACK buprenorphi 2022-0 Yes [place] Uni vers ne [...] mg 4-18 DAILY. ity of tablet 09:12: [address] gabapentin Yes gabapentin U nivers 300 mg 4-18 300 mg ity of capsule 09:12: capsule [address] famotidine Yes famotidine U nivers 20 mg 4-18 20 mg ity of tablet 09:12: tablet [address] clonazePAM Yes clonazepam U nivers 0.5 mg 4-18 0.5 mg ity of tablet 09:12: tablet [place] [address] TAKE 1 Medical TABLET BY Branch MOUTH [...] No 162mg 162 mg, Unive rs chewable 4-15 04-15 Oral, ONCE ity of tablet 162 10:30: 09:42 NOW, 1 [place] mg [place] :00 dose, On Medical Sat Branch 12/19/22 at 0530, Routine iopamidol 2022- No [id number] 99mL 99 mL, U nivers (ISOVUE 12-19-15 Intravenou ity o f 370-500 mL) 09:20: [...] 800 mg ity of tablet 10:43: tablet [place] [address] Medical Branch adalimumab Yes 40mg inject 1 Uni vers [...] 800 mg ity of tablet 10:43: tablet [place] [address] Medical Branch adalimumab 2022-0 Yes 40mg inject 1 Uni vers (HUMIRA) 40 4-11 Syringe ity o f mg/0.8 mL 10:43: under the [place] as injection 17 skin. Medical Branch ibuprofen Yes ibuprofen Uni vers 800 mg 4-11 800 mg ity of tablet 10:43: tablet [place] [address] Medical Branch adalimumab 2022-0 Yes 40mg inject [...] as injection 17 skin. Medical Branch ibuprofen 2023-0 Yes ibuprofen Uni vers 800 mg 4-11 [...] ity of tablet 10:43: tablet Medical Branch pregabalin Yes 150mg Take 1 Univ ers 150 mg 3-30 capsule by ity of capsule 00:00: mouth in [place] 00 the Medical morning Branch and 1 capsule in the evening. meloxicam 2023-0 Yes Univers 15 mg 3-30 ity of tablet 00:00: [place] [facility] Branch HYDROcodone 2023-0 Yes 1{tbl} Take 1 Un travis -acetaminop 3-30 tablet by ity of hen 5-325 00:00: mouth 4 [place] mg tablet 00 ([facility] times [place] daily. pregabalin 2023-0 Yes 150mg Take 1 Univ ers 150 mg 3-30 capsule by ity of capsule 00:00: mouth in [place] [address] [facility] morning Branch and 1 capsule in the evening. meloxicam 2023-0 Yes Univers 15 mg 3-30 ity of tablet 00:00: [address] Branch HYDROcodone 2023-0 Yes 1{tbl} Take 1 Un travis -acetaminop 3-30 tablet by ity of hen 5-325 00:00: mouth 4 [place] mg tablet ([facility] times [place] daily. pregabalin 2023-0 Yes 150mg Take 1 Univ ers 150 mg 3-30 capsule by ity of capsule 00:00: mouth in [place] [address] [facility] morning Branch and 1 capsule in the evening. meloxicam 2023-0 Yes Univers 15 mg 3-30 ity of tablet 00:00: [address] Branch HYDROcodone 2023-0 Yes 1{tbl} Take 1 Un travis -acetaminop 3-30 tablet by ity of hen 5-325 00:00: mouth 4 [place] mg tablet ([facility] times [place] daily. pregabalin 2023-0 Yes 150mg Take 1 Univ ers 150 mg 3-30 capsule by ity of capsule 00:00: mouth in [place] [address] [facility] morning Branch and 1 capsule in the evening. meloxicam 2023-0 Yes Univers 15 mg 3-30 ity of tablet 00:00: [address] Branch HYDROcodone 2023-0 Yes 1{tbl} Take 1 Un travis -acetaminop 3-30 tablet by ity of hen 5-325 00:00: mouth 4 [place] mg tablet 00 ([facility] times [place] daily. pregabalin 2023-0 Yes 150mg Take 1 Univ ers 150 mg 3-30 capsule by ity of capsule 00:00: mouth in [place] [address] [facility] morning Branch and 1 capsule in the evening. meloxicam 2023-0 Yes Univers 15 mg 3-30 ity of tablet 00:00: [place] [address] [facility] Branch HYDROcodone 2023-0 Yes 1{tbl} Take 1 Un travis -acetaminop 3-30 tablet by ity of hen 5-325 00:00: mouth 4 [place] mg tablet 00 ([facility] times [place] daily. pregabalin 2023-0 Yes 150mg Take 1 Univ ers 150 mg 3-30 capsule by ity of capsule 00:00: mouth in [place] 00 the Medical morning Branch and 1 capsule in the evening. meloxicam 2023-0 Yes Univers 15 mg 3-30 ity of tablet 00:00: [place] [address] [facility] Branch HYDROcodone 2023-0 Yes 1{tbl} Take 1 Un travis -acetaminop 3-30 tablet by ity of hen 5-325 00:00: mouth 4 [place] mg tablet ([facility]) [facility] times [place] daily. pregabalin 2023-0 Yes 150mg Take 1 Univ ers 150 mg 3-30 capsule by ity of capsule 00:00: mouth in [place] the [facility] morning Branch and 1 capsule in the evening. meloxicam 2023-0 Yes Univers 15 mg 3-30 ity of tablet 00:00: [place] [facility] Branch HYDROcodone 2023-0 Yes 1{tbl} Take 1 Un travis -acetaminop 3-30 tablet by ity of hen 5-325 00:00: mouth 4 [place] mg tablet ([facility] times [place] daily. pregabalin 2023-0 Yes 150mg Take 1 Univ ers 150 mg 3-30 capsule by ity of capsule 00:00: mouth in [place] the [facility] morning Branch and 1 capsule in the evening. meloxicam 2023-0 Yes Univers 15 mg 3-30 ity of tablet 00:00: [address] Branch HYDROcodone 2023-0 Yes 1{tbl} Take 1 Un travis -acetaminop 3-30 tablet by ity of hen 5-325 00:00: mouth 4 [place] mg tablet 00 ([facility] times [place] daily. pregabalin 2023-0 Yes 150mg Take 1 Univ ers 150 mg 3-30 capsule by ity of capsule 00:00: mouth in [place] [address] the Medical morning Branch and 1 capsule in the evening. meloxicam 2023-0 Yes Univers 15 mg 3-30 ity of tablet 00:00: [place] [facility] Branch HYDROcodone 2023-0 Yes 1{tbl} Take 1 Un travis -acetaminop 3-30 tablet by ity of hen 5-325 00:00: mouth 4 [place] mg tablet ([facility]) [facility] times [place] daily. pregabalin 2023-0 Yes 150mg Take 1 Univ ers 150 mg 3-30 capsule by ity of capsule 00:00: mouth in [place] the Medical morning Branch and 1 capsule in the evening. meloxicam 2023-0 Yes Univers 15 mg 3-30 ity of tablet 00:00: [place] [facility] Branch HYDROcodone 2023-0 Yes 1{tbl} Take 1 Un travis -acetaminop 3-30 tablet by ity of hen 5-325 00:00: mouth 4 [place] mg tablet ([facility] times [place] daily. pregabalin 2023-0 Yes 150mg Take 1 Univ ers 150 mg 3-30 capsule by ity of capsule 00:00: mouth in [place] the [facility] morning Branch and 1 capsule in the evening. meloxicam 2023-0 Yes Univers 15 mg 3-30 ity of tablet 00:00: [place] [facility] Branch HYDROcodone 2023-0 Yes 1{tbl} Take 1 Un travis -acetaminop 3-30 tablet by ity of hen 5-325 00:00: mouth 4 [place] mg tablet ([facility] daily. pregabalin 2023-0 Yes 150mg Take 1 Univ ers 150 mg 3-30 capsule by ity of capsule 00:00: mouth in [place] the [facility] morning Branch and 1 capsule in the evening. meloxicam 2023-0 Yes Univers 15 mg 3-30 ity of tablet 00:00: [place] [facility] Branch HYDROcodone 2023-0 Yes 1{tbl} Take 1 Un travis -acetaminop 3-30 tablet by ity of hen 5-325 00:00: mouth 4 [place] mg tablet ([facility] times [place] daily. pregabalin 2023-0 Yes 150mg Take 1 Univ ers 150 mg 3-30 capsule by ity of capsule 00:00: mouth in [place] [address] the Medical morning Branch and 1 capsule in the evening. meloxicam 2023-0 Yes [facility] 15 mg 3-30 ity of tablet 00:00: [place] [facility] HYDROcodone 2023-0 Yes 1{tbl} Take 1 Un tra[facility] -acetaminop 3-30 tablet by ity of hen 5-325 00:00: mouth 4 [place] mg tablet 00 ([facility]) Medical times [place] daily. pregabalin 2023-0 Yes 150mg Take 1 [facility] ers 150 mg 3-30 capsule by ity of capsule 00:00: mouth in [place] 00 the Medical morning Branch and 1 capsule in the evening. meloxicam 2023-0 Yes [facility] 15 mg 3-30 ity of tablet 00:00: [place] 00 [facility] HYDROcodone 2023-0 Yes 1{tbl} Take 1 Un travis -acetaminop 3-30 tablet by ity of hen 5-325 00:00: mouth 4 [place] mg tablet 00 ([facility]) Medical times [place] daily. pregabalin 2023-0 Yes 150mg Take 1 [facility] ers 150 mg 3-30 capsule by ity of capsule 00:00: mouth in [place] [address] the Medical morning Branch and 1 capsule in the evening. meloxicam 2023-0 Yes [facility] 15 mg 3-30 ity of tablet 00:00: [place] 00 [facility] HYDROcodone 2023-0 Yes 1{tbl} Take 1 Un travis -acetaminop 3-30 tablet by ity of hen 5-325 00:00: mouth 4 [place] mg tablet 00 ([facility]) Medical times [place] daily. pregabalin 2023-0 Yes 150mg Take 1 [facility] ers 150 mg 3-30 capsule by ity of capsule 00:00: mouth in [place] the Medical morning Branch and 1 capsule in the evening. meloxicam 2023-0 Yes [facility] 15 mg 3-30 ity of tablet 00:00: [place] [facility] HYDROcodone 2023-0 Yes 1{tbl} Take 1 Un travis -acetaminop 3-30 tablet by ity of hen 5-325 00:00: mouth 4 [place] mg tablet 00 (four) Medical times [place] daily. pregabalin 2023-0 Yes 150mg Take 1 [facility] ers 150 mg 3-30 capsule by ity of capsule 00:00: mouth in [place] the Medical morning Branch and 1 capsule in the evening. meloxicam 2023-0 Yes [facility] 15 mg 3-30 ity of tablet 00:00: [place] 00 [facility] HYDROcodone 2023-0 Yes 1{tbl} Take 1 [...] by ity of capsule 00:00: mouth in [place] the Medical morning Branch and 1 capsule in the evening. meloxicam 2023-0 Yes [facility] 15 mg 3-30 ity of tablet 00:00: [place] 00 Medical Branch HYDROcodone 2023-0 Yes 1{tbl} Take 1 Un travis -acetaminop 3-30 tablet by ity of hen 5-325 00:00: mouth 4 [place] mg tablet 00 (four) Medical times Branch daily. pregabalin 2023-0 Yes 150mg Take 1 [facility] ers 150 mg 3-30 capsule by ity of capsule 00:00: mouth in [place] the Medical morning Branch and 1 capsule in the evening. meloxicam 2023-0 Yes [facility] 15 mg 3-30 ity of tablet 00:00: [place] 00 Medical Branch HYDROcodone 2023-0 Yes 1{tbl} Take 1 Un travis -acetaminop 3-30 tablet by ity of hen 5-325 00:00: mouth 4 [place] mg tablet 00 (four) Medical times Branch daily. pregabalin 2023-0 Yes 150mg Take 1 [facility] ers 150 mg 3-30 capsule by ity of capsule 00:00: mouth in [place] the Medical morning Branch and 1 capsule in the evening. meloxicam 2023-0 Yes [facility] 15 mg 3-30 ity of tablet 00:00: [place] 00 Medical Branch HYDROcodone 2023-0 Yes 1{tbl} Take 1 Un travis -acetaminop 3-30 tablet by ity of hen 5-325 00:00: mouth 4 [place] mg tablet 00 (four) Medical times [place] daily. pregabalin 2023-0 Yes 150mg Take 1 [facility] ers 150 mg 3-30 capsule by ity of capsule 00:00: mouth in [place] the Medical morning Branch and 1 capsule in the evening. meloxicam 2023-0 Yes [facility] 15 mg 3-30 ity of tablet 00:00: [place] [facility] HYDROcodone 2023-0 Yes 1{tbl} Take 1 Un travis -acetaminop 3-30 tablet by ity of hen 5-325 00:00: mouth 4 [place] mg tablet 00 ([facility]) Medical times Branch daily. pregabalin 2023-0 Yes 150mg Take 1 [facility] ers 150 mg 3-30 capsule by ity of capsule 00:00: mouth in [place] the [facility] morning Branch and 1 capsule in the evening. meloxicam 2023-0 Yes [facility] 15 mg 3-30 ity of tablet 00:00: [place] [facility] HYDROcodone 2023-0 Yes 1{tbl} Take 1 Un tra[facility] -acetaminop 3-30 tablet by ity of hen 5-325 00:00: mouth 4 [place] mg tablet ([facility]) Medical times [place] daily. pregabalin 2023-0 Yes 150mg Take 1 [facility] ers 150 mg 3-30 capsule by ity of capsule 00:00: mouth in [place] the [facility] morning Branch and 1 capsule in the evening. meloxicam 2023-0 Yes [facility] 15 mg 3-30 ity of tablet 00:00: [place] [facility] HYDROcodone 2023-0 Yes 1{tbl} Take 1 Un tra[facility] -acetaminop 3-30 tablet by ity of hen 5-325 00:00: mouth 4 [place] mg tablet ([facility]) Medical times Branch daily. pregabalin 2023-0 Yes 150mg Take 1 [facility] ers 150 mg 3-30 capsule by ity of capsule 00:00: mouth in [place] the Medical morning Branch and 1 capsule in the evening. meloxicam 2023-0 Yes [facility] 15 mg 3-30 ity of tablet 00:00: [place] [facility] HYDROcodone 2023-0 Yes 1{tbl} Take 1 Un travis -acetaminop 3-30 tablet by ity of hen 5-325 00:00: mouth 4 [place] mg tablet 00 (four) Medical times Branch daily. pregabalin 2023-0 Yes 150mg Take 1 [facility] ers 150 mg 3-30 capsule by ity of capsule 00:00: mouth in [place] the Medical morning Branch and 1 capsule in the evening. meloxicam 2023-0 Yes [facility] 15 mg 3-30 ity of tablet 00:00: [place] [facility] HYDROcodone 2023-0 Yes 1{tbl} Take 1 Un tra[facility] -acetaminop 3-30 tablet by ity of hen 5-325 00:00: mouth 4 [place] mg tablet ([facility]) Medical times [place] daily. pregabalin 2023-0 Yes 150mg Take 1 [facility] ers 150 mg 3-30 capsule by ity of capsule 00:00: mouth in [place] the Medical morning Branch and 1 capsule in the evening. meloxicam 2023-0 Yes [facility] 15 mg 3-30 ity of tablet 00:00: [place] [facility] HYDROcodone 2023-0 Yes 1{tbl} Take 1 Un travis -acetaminop 3-30 tablet by ity of hen 5-325 00:00: mouth 4 [place] mg tablet ([facility]) Medical times [place] daily. pregabalin 2023-0 Yes 150mg Take 1 [facility] ers 150 mg 3-30 capsule by ity of capsule 00:00: mouth in [place] the Medical morning Branch and 1 capsule in the evening. meloxicam 2023-0 Yes [facility] 15 mg 3-30 ity of tablet 00:00: [place] [facility] HYDROcodone 2023-0 Yes 1{tbl} Take 1 Un tra[facility] -acetaminop 3-30 tablet by ity of hen 5-325 00:00: mouth 4 [place] mg tablet ([facility]) Medical times [place] daily. pregabalin 2023-0 Yes 150mg Take 1 [facility] ers 150 mg 3-30 capsule by ity of capsule 00:00: mouth in [place] the Medical morning Branch and 1 capsule in the evening. meloxicam 2023-0 Yes [facility] 15 mg 3-30 ity of tablet 00:00: [place] [facility] HYDROcodone 2023-0 Yes 1{tbl} Take 1 Un tra[facility] -acetaminop 3-30 tablet by ity of hen 5-325 00:00: mouth 4 [place] mg tablet 00 ([facility]) Medical times [place] daily. pregabalin 2023-0 Yes 150mg Take 1 [facility] ers 150 mg 3-30 capsule by ity of capsule 00:00: mouth in [place] 00 the Medical morning Branch and 1 capsule in the evening. meloxicam 2023-0 Yes [facility] 15 mg 3-30 ity of tablet 00:00: [place] 00 Medical Branch HYDROcodone 2023-0 Yes 1{tbl} [...] 15 mg 3-30 ity of tablet 00:00: [place] 00 Medical Branch HYDROcodone 2023-0 Yes 1{tbl} Take 1 Un tra[facility] -acetaminop 3-30 tablet by ity of hen 5-325 00:00: mouth 4 [place] mg tablet 00 (four) Medical times Branch daily. pregabalin 2023-0 Yes 150mg Take 1 [facility] ers 150 mg 3-30 capsule by ity of capsule 00:00: mouth in [place] 00 the Medical morning Branch and 1 capsule in the evening. meloxicam 2023-0 Yes [facility] 15 mg 3-30 ity of tablet 00:00: [place] 00 Medical Branch HYDROcodone 2023-0 Yes 1{tbl} Take 1 Un tra[facility] -acetaminop 3-30 tablet by ity of hen 5-325 00:00: mouth 4 [place] mg tablet 00 (four) Medical times Branch daily. cyclobenzap 2023-0 Yes TAKE 1 Univ ers rine 10 mg 3-15 TABLET BY ity of tablet 00:00: MOUTH [place] 00 THREE Medical TIMES A Branch DAY NEEDED FOR 30 DAYS amitriptyli 2023-0 Yes TAKE 1 Univ ers ne 50 mg 3-15 TABLET BY ity of tablet 00:00: MOUTH [place] 00 EVERY DAY Medical AT BEDTIME Branch FOR 30 DAYS cyclobenzap 2023-0 Yes TAKE 1 Univ ers rine 10 mg 3-15 TABLET BY ity of tablet 00:00: MOUTH [place] 00 THREE Medical TIMES A Branch DAY NEEDED FOR 30 DAYS amitriptyli 2023-0 Yes TAKE 1 [facility] ers ne 50 mg 3-15 TABLET BY ity of tablet 00:00: MOUTH [place] [facility] cycl[facility] 3-0 Yes TAKE 1 Univ ers rine 10 mg 3-15 TABLET BY ity of tablet 00:00: MOUTH THREE Medical TIMES A Branch DAY NEEDED FOR 30 DAYS amitriptyli 2023-0 Yes TAKE 1 Univ ers ne 50 mg 3-15 TABLET BY ity of tablet 00:00: [facility] EVERY DAY Medical [facility] Branch FOR 30 DAYS cyclobenzap 2022-0 Yes TAKE 1 Univ ers rine 10 mg 3-15 TABLET BY ity of tablet 00:00: MOUTH THREE Medical TIMES A Branch DAY NEEDED FOR 30 DAYS amitriptyli 3-0 Yes TAKE 1 [facility] ers ne 50 mg 3-15 TABLET BY ity of tablet 00:00: [facility] cyclobenzap 2022-0 Yes TAKE 1 Univ ers rine 10 mg 3-15 TABLET BY ity of tablet 00:00: [facility] THREE Medical TIMES A Branch DAY NEEDED FOR 30 DAYS amitriptyli 3-0 Yes TAKE 1 Univ ers ne 50 mg 3-15 TABLET BY ity of tablet 00:00: [facility] EVERY DAY Medical AT [facility] FOR 30 DAYS cyclobenzap 2022-0 Yes TAKE 1 Univ ers rine 10 mg 3-15 TABLET BY ity of tablet 00:00: [facility] THREE Medical TIMES A Branch DAY NEEDED FOR 30 DAYS amitriptyli 2023-0 Yes TAKE 1 Univ ers ne 50 mg 3-15 TABLET BY ity of tablet 00:00: [facility] cyclobenzap 3-0 Yes TAKE 1 Univ ers rine 10 mg 3-15 TABLET BY ity of tablet 00:00: [facility] THREE Medical TIMES A Branch DAY NEEDED FOR 30 DAYS amitriptyli 2023-0 Yes TAKE 1 Univ ers ne 50 mg 3-15 TABLET BY ity of tablet 00:00: [facility] EVERY DAY Medical AT BEDTIME Branch FOR 30 DAYS cyclobenzap 3-0 Yes TAKE 1 Univ ers rine 10 mg 3-15 TABLET BY ity of tablet 00:00: [facility] THREE Medical TIMES A Branch DAY NEEDED [...] 00:00: MOUTH EVERY DAY Medical AT [facility] Branch FOR 30 DAYS cyclobenzap 3-0 Yes TAKE 1 Univ ers rine 10 mg 3-15 TABLET BY ity of tablet 00:00: MOUTH THREE Medical TIMES A Branch DAY NEEDED FOR 30 DAYS amitriptyli 3-0 Yes TAKE 1 [facility] ers ne 50 mg 3-15 TABLET BY ity of tablet 00:00: [facility]TH [facility] cyclobenzap 3-0 Yes TAKE 1 [facility] ers rine 10 mg 3-15 TABLET BY ity of tablet 00:00: MOUTH THREE Medical TIMES A Branch DAY NEEDED FOR 30 DAYS amitriptyli 2023-0 Yes TAKE 1 [facility] ers ne 50 mg 3-15 TABLET BY ity of tablet 00:00: [facility] cyclobenzap 3-0 Yes TAKE 1 Univ ers rine 10 mg 3-15 TABLET BY ity of tablet 00:00: MOUTH THREE Medical TIMES A Branch DAY NEEDED FOR 30 DAYS amitriptyli 2023-0 Yes TAKE 1 Univ ers ne 50 mg 3-15 TABLET BY ity of tablet 00:00: MOUTH EVERY DAY Medical AT BEDTIME [place] FOR 30 DAYS cyclobenzap 3-0 Yes TAKE [...] TABLET BY ity of tablet 00:00: [facility] EVERY DAY Medical AT BEDTIME Branch FOR 30 DAYS cyclobenzap 3-0 Yes TAKE 1 Univ ers rine 10 mg 3-15 TABLET BY ity of tablet 00:00: [facility] THREE Medical TIMES A Branch DAY NEEDED FOR 30 DAYS amitriptyli 2023-0 Yes TAKE 1 Univ ers ne 50 mg 3-15 TABLET BY ity of tablet 00:00: [facility] EVERY DAY Medical AT [facility] Branch FOR 30 DAYS cyclobenzap 3-0 Yes TAKE 1 Univ ers rine 10 mg 3-15 TABLET BY ity of tablet 00:00: [facility] THREE Medical TIMES A Branch DAY NEEDED FOR 30 DAYS amitriptyli 3-0 Yes TAKE 1 Univ ers ne 50 mg 3-15 TABLET BY ity of tablet 00:00: [facility] EVERY DAY Medical AT BEDTIME [place] FOR 30 DAYS cyclobenzap 3-0 Yes TAKE 1 Univ ers rine 10 mg 3-15 TABLET BY ity of tablet 00:00: [facility] THREE Medical TIMES A Branch DAY NEEDED FOR 30 DAYS amitriptyli 2023-0 Yes TAKE 1 Univ ers ne 50 mg 3-15 TABLET BY ity of tablet 00:00: [facility] cyclobenzap 3-0 Yes TAKE 1 Univ ers rine 10 mg 3-15 TABLET BY ity of tablet 00:00: [facility] THREE Medical TIMES A Branch DAY NEEDED FOR 30 DAYS amitriptyli 2023-0 Yes TAKE 1 Univ ers ne 50 mg 3-15 TABLET BY ity of tablet 00:00: [facility] EVERY DAY Medical AT BEDTIME [place] FOR 30 DAYS cyclobenzap 2023-0 Yes TAKE 1 Univ ers rine 10 mg 3-15 TABLET BY ity of tablet 00:00: [facility] THREE Medical TIMES A Branch DAY NEEDED FOR 30 DAYS amitriptyli 2023-0 Yes TAKE 1 Univ ers ne 50 mg 3-15 TABLET BY ity of tablet 00:00: [facility] EVERY DAY Medical AT BEDTIME Branch FOR 30 DAYS cyclobenzap 2023-0 Yes TAKE 1 Univ ers rine 10 mg 3-15 TABLET BY ity of tablet 00:00: THREE Medical TIMES A Branch DAY NEEDED FOR 30 DAYS amitriptyli 2023-0 Yes TAKE 1 Univ ers ne 50 mg 3-15 TABLET BY ity of tablet 00:00: [facility] EVERY DAY Medical AT BEDTIME Branch FOR 30 DAYS cyclobenzap 2023-0 Yes TAKE 1 Univ ers rine 10 mg 3-15 TABLET BY ity of tablet 00:00: [facility] THREE Medical TIMES A Branch DAY NEEDED FOR 30 DAYS amitriptyli 2023-0 Yes TAKE 1 Univ ers ne 50 mg 3-15 TABLET BY ity of tablet 00:00: [facility] EVERY DAY Medical AT BEDTIME Branch FOR 30 DAYS cyclobenzap 3-0 Yes TAKE 1 Univ ers rine 10 mg 3-15 TABLET BY ity of tablet 00:00: [facility] THREE Medical TIMES A Branch DAY NEEDED FOR 30 DAYS amitriptyli 2023-0 Yes TAKE 1 Univ ers ne 50 mg 3-15 TABLET BY ity of tablet 00:00: [facility] EVERY DAY Medical AT BEDTIME Branch FOR 30 DAYS cyclobenzap 3-0 Yes TAKE 1 Univ ers rine 10 mg 3-15 TABLET BY ity of tablet 00:00: [facility] THREE Medical TIMES A Branch DAY NEEDED FOR 30 DAYS amitriptyli 2023-0 Yes TAKE 1 Univ ers ne 50 mg 3-15 TABLET BY ity of tablet 00:00: [facility] EVERY DAY Medical AT BEDTIME Branch FOR 30 DAYS cyclobenzap 2023-0 Yes TAKE 1 Univ ers rine 10 mg 3-15 TABLET BY ity of tablet 00:00: [facility] THREE Medical TIMES A Branch DAY NEEDED FOR 30 DAYS amitriptyli 2023-0 Yes TAKE 1 Univ ers ne 50 mg 3-15 TABLET BY ity of tablet 00:00: [facility] EVERY DAY Medical AT BEDTIME Branch FOR 30 DAYS cyclobenzap 2023-0 Yes TAKE 1 Univ ers rine 10 mg 3-15 TABLET BY ity of tablet 00:00: [facility] THREE Medical TIMES A Branch DAY NEEDED FOR 30 DAYS amitriptyli 2023-0 Yes TAKE 1 Univ ers ne 50 mg 3-15 TABLET BY ity of tablet 00:00: [facility] EVERY DAY Medical AT BEDTIME Branch FOR [...] TABLET BY ity of tablet 00:00: [facility] EVERY DAY Medical AT BEDTIME Branch FOR 30 DAYS cyclobenzap 2023-0 Yes TAKE 1 Univ ers rine 10 mg 3-15 TABLET BY ity of tablet 00:00: [facility] THREE Medical TIMES A Branch DAY NEEDED FOR 30 DAYS amitriptyli 2023-0 Yes TAKE 1 Univ ers ne 50 mg 3-15 TABLET BY ity of tablet 00:00: [facility] EVERY DAY Medical AT BEDTIME Branch FOR 30 DAYS cyclobenzap 2023-0 Yes TAKE 1 Univ ers rine 10 mg 3-15 TABLET BY ity of tablet 00:00: MOUTH THREE Medical TIMES A Branch DAY NEEDED FOR 30 DAYS amitriptyli 2023-0 Yes TAKE 1 Univ ers ne 50 mg 3-15 TABLET BY ity of tablet 00:00: [facility] EVERY DAY Medical AT BEDTIME Branch FOR [...] 30 DAYS cyclobenzap 2022-0 Yes TAKE 1 [facility] ers rine 10 mg 3-15 TABLET BY ity of tablet 00:00: MOUTH 00 THREE Medical TIMES A DAY NEEDED FOR 30 DAYS amitriptyli 2022-0 Yes TAKE 1 [facility] ers ne 50 mg 3-15 TABLET BY ity of tablet 00:00: MOUTH [place] 00 [facility] NaCl 0.9% 0 2022- No 500mL at 999 [facility] ers (NS) bolus 11-03 mL/hr, [...] Medical Branch 11/03/22 at 0900, STAT diphenhydrA 2022-0 2022- No 25mg 25 mg, Uni vers MINE 11-03 Slow IV ity of (BENADRYL) 15:00: 15:18 [place], [place] injection 00 :00 ONCE, 1 Medical 25 mg dose, On Branch Wed11/03/22 at 0900, STAT LORazepam 2022-0 Yes [id number] 1mg Take 1 U nivers (ATIVAN) 1 11-03 tablet by ity of mg tablet 00:00: mouth 2 00 (two) Medical times [place] daily as needed for Anxiety or Agitation. hydrOXYzine 2022-0 Yes [id number] 25mg Take 1 Univers (VISTARIL) 2-28 capsule by ity of 25 mg 00:00: mouth 3 [place] capsule 00 (three) Medical times [place] daily as needed for Anxiety. LORazepam 2022-0 Yes [id number] 1mg Take 1 U nivers (ATIVAN) 1 2-28 tablet by ity of mg tablet 00:00: mouth 2 [place] 00 (two) Medical times [place] daily as needed for Anxiety or Agitation. hydrOXYzine 2022-0 Yes [id number] 25mg Take 1 [facility] (VISTARIL) 2-28 capsule by ity of 25 mg 00:00: mouth 3 [place] capsule 00 (three) Medical times Branch daily as needed for Anxiety. LORazepam 2023-0 Yes [id number] 1mg Take 1 U nivers (ATIVAN) 1 2-28 tablet by ity of mg tablet 00:00: mouth 2 [place] 00 (two) Medical times Branch daily as needed for Anxiety or Agitation. hydrOXYzine 2023-0 Yes [id number] 25mg Take 1 [facility] (VISTARIL) 2-28 capsule by ity of 25 mg 00:00: mouth 3 [place] capsule 00 (three) Medical times Branch daily as needed for Anxiety. LORazepam 2023-0 Yes [id number] 1mg Take 1 U nivers (ATIVAN) 1 2-28 tablet by ity of mg tablet 00:00: mouth 2 [place] 00 (two) Medical times Branch daily as needed for Anxiety or Agitation. hydrOXYzine 2023-0 Yes [id number] 25mg Take 1 [facility] (VISTARIL) 2-28 capsule by ity of 25 mg 00:00: mouth 3 [place] capsule 00 (three) Medical times Branch daily as needed for Anxiety. LORazepam 2023-0 Yes [id number] 1mg Take 1 U nivers (ATIVAN) 1 2-28 tablet by ity of mg tablet 00:00: mouth 2 [place] 00 (two) Medical times Branch daily as needed for Anxiety or Agitation. hydrOXYzine 2023-0 Yes [id number] 25mg Take 1 [facility] (VISTARIL) 2-28 capsule by ity of 25 mg 00:00: mouth 3 [place] capsule 00 (three) Medical times Branch daily as needed for Anxiety. LORazepam 2023-0 Yes [id number] 1mg Take 1 U nivers (ATIVAN) 1 2-28 tablet by ity of mg tablet 00:00: mouth 2 [place] 00 (two) Medical times Branch daily as needed for Anxiety or Agitation. hydrOXYzine 2023-0 Yes [id number] 25mg Take 1 [facility] (VISTARIL) 2-28 capsule by ity of 25 mg 00:00: mouth 3 [place] capsule 00 (three) Medical times Branch daily as needed for Anxiety. LORazepam 2023-0 Yes [id number] 1mg Take 1 U nivers (ATIVAN) 1 2-28 tablet by ity of mg tablet 00:00: mouth 2 00 (two) Medical times Branch daily as needed for Anxiety or Agitation. hydrOXYzine 2023-0 Yes [id number] 25mg Take 1 Univers (VISTARIL) 2-28 capsule by ity of 25 mg 00:00: mouth 3 [place] capsule 00 (three) Medical times Branch daily as needed for Anxiety. LORazepam 2023-0 Yes [id number] 1mg Take 1 U nivers (ATIVAN) 1 2-28 tablet by ity of mg tablet 00:00: mouth 2 [place] 00 (two) Medical times Branch daily as needed for Anxiety or Agitation. hydrOXYzine 2023-0 Yes [id number] 25mg Take 1 Univers (VISTARIL) 2-28 capsule by ity of 25 mg 00:00: mouth 3 [place] capsule 00 (three) Medical times Branch daily as needed for Anxiety. LORazepam 2023-0 Yes [id number] 1mg Take 1 U nivers (ATIVAN) 1 2-28 tablet by ity of mg tablet 00:00: mouth 2 (two) Medical times Branch daily as needed for Anxiety or Agitation. hydrOXYzine 2023-0 Yes [id number] 25mg Take 1 Univers (VISTARIL) 2-28 capsule by ity of 25 mg 00:00: mouth 3 [place] capsule 00 (three) Medical times Branch daily as needed for Anxiety. LORazepam 2023-0 Yes [id number] 1mg Take 1 U nivers (ATIVAN) 1 2-28 tablet by ity of mg tablet 00:00: mouth 2 (two) Medical times Branch daily as needed for Anxiety or Agitation. hydrOXYzine 2023-0 Yes [id number] 25mg Take 1 Univers (VISTARIL) 2-28 capsule by ity of 25 mg 00:00: mouth 3 [place] capsule 00 (three) Medical times Branch daily as needed for Anxiety. LORazepam 2023-0 Yes [id number] 1mg Take 1 U nivers (ATIVAN) 1 2-28 tablet by ity of mg tablet 00:00: mouth 2 [place] 00 (two) Medical times Branch daily as needed for Anxiety or Agitation. hydrOXYzine 2023-0 Yes [id number] 25mg Take 1 Univers (VISTARIL) 2-28 capsule by ity of 25 mg 00:00: mouth 3 [place] capsule 00 (three) Medical times Branch daily as needed for Anxiety. LORazepam 2023-0 Yes [id number] 1mg Take 1 U nivers (ATIVAN) 1 2-28 tablet by ity of mg tablet 00:00: mouth 2 [place] 00 (two) Medical times Branch daily as needed for Anxiety or Agitation. hydrOXYzine 2023-0 Yes [id number] 25mg Take 1 [facility] (VISTARIL) 2-28 capsule by ity of 25 mg 00:00: mouth 3 [place] capsule 00 (three) Medical times Branch daily as needed for Anxiety. LORazepam 2023-0 Yes [id number] 1mg Take 1 U nivers (ATIVAN) 1 2-28 tablet by ity of mg tablet 00:00: mouth 2 [place] 00 (two) Medical times Branch daily as needed for Anxiety or Agitation. hydrOXYzine 2023-0 Yes [id number] 25mg Take 1 [facility] (VISTARIL) 2-28 capsule by ity of 25 mg 00:00: mouth 3 [place] capsule 00 (three) Medical times Branch daily as needed for Anxiety. LORazepam 2023-0 Yes [id number] 1mg Take 1 U nivers (ATIVAN) 1 2-28 tablet by ity of mg tablet 00:00: mouth 2 (two) Medical times Branch daily as needed for Anxiety or Agitation. hydrOXYzine 2023-0 Yes [id number] 25mg Take 1 [facility] (VISTARIL) 2-28 capsule by ity of 25 mg 00:00: mouth 3 [place] capsule 00 (three) Medical times Branch daily as needed for Anxiety. LORazepam 2023-0 Yes [id number] 1mg Take 1 U nivers (ATIVAN) 1 2-28 tablet by ity of mg tablet 00:00: mouth 2 [place] 00 (two) Medical times Branch daily as needed for Anxiety or Agitation. hydrOXYzine 2023-0 Yes [id number] 25mg Take 1 [facility] (VISTARIL) 2-28 capsule by ity of 25 mg 00:00: mouth 3 [place] capsule 00 (three) Medical times Branch daily as needed for Anxiety. LORazepam 2023-0 Yes [id number] 1mg Take 1 U nivers (ATIVAN) 1 2-28 tablet by ity of mg tablet 00:00: mouth 2 [place] 00 (two) Medical times Branch daily as needed for Anxiety or Agitation. hydrOXYzine 2023-0 Yes [id number] 25mg Take 1 [facility] (VISTARIL) 2-28 capsule by ity of 25 mg 00:00: mouth 3 [place] capsule 00 (three) Medical times Branch daily as needed for Anxiety. LORazepam 2023-0 Yes [id number] 1mg Take 1 U nivers (ATIVAN) 1 2-28 tablet by ity of mg tablet 00:00: mouth 2 [place] 00 (two) Medical times Branch daily as needed for Anxiety or Agitation. hydrOXYzine 2023-0 Yes [id number] 25mg Take 1 [facility] (VISTARIL) 2-28 capsule by ity of 25 mg 00:00: mouth 3 [place] capsule 00 (three) Medical times Branch daily as needed for Anxiety. LORazepam 2023-0 Yes [id number] 1mg Take 1 U nivers (ATIVAN) 1 2-28 tablet by ity of mg tablet 00:00: mouth 2 00 (two) Medical times Branch daily as needed for Anxiety or Agitation. hydrOXYzine 2023-0 Yes [id number] 25mg Take 1 [facility] (VISTARIL) 2-28 capsule by ity of 25 mg 00:00: mouth 3 [place] capsule 00 (three) Medical times Branch daily as needed for Anxiety. LORazepam 2023-0 Yes [id number] 1mg Take 1 U nivers (ATIVAN) 1 2-28 tablet by ity of mg tablet 00:00: mouth 2 00 (two) Medical times Branch daily as needed for Anxiety or Agitation. hydrOXYzine 2023-0 Yes [id number] 25mg Take 1 [facility] (VISTARIL) 2-28 capsule by ity of 25 mg 00:00: mouth 3 [place] capsule 00 (three) Medical times Branch daily as needed for Anxiety. LORazepam 2023-0 Yes [id number] 1mg Take 1 U nivers (ATIVAN) 1 2-28 tablet by ity of mg tablet 00:00: mouth 2 [place] 00 (two) Medical times Branch daily as needed for Anxiety or Agitation. hydrOXYzine 2023-0 Yes [id number] 25mg Take 1 [facility] (VISTARIL) 2-28 capsule by ity of 25 mg 00:00: mouth 3 [place] capsule 00 (three) Medical times Branch daily as needed for Anxiety. LORazepam 2023-0 Yes [id number] 1mg Take 1 [facility] (ATIVAN) 1 2-28 tablet by ity of mg tablet 00:00: mouth 2 [place] 00 (two) Medical times Branch daily as needed for Anxiety or Agitation. hydrOXYzine 2023-0 Yes [id number] 25mg Take 1 [facility] (VISTARIL) 2-28 capsule by ity of 25 mg 00:00: mouth 3 [place] capsule 00 (three) Medical times Branch daily as needed for Anxiety. LORazepam 2023-0 Yes [id number] 1mg Take 1 [facility] (ATIVAN) 1 2-28 tablet by ity of mg tablet 00:00: mouth 2 [place] 00 (two) Medical times Branch daily as needed for Anxiety or Agitation. hydrOXYzine 2023-0 Yes [id number] 25mg Take 1 [facility] (VISTARIL) 2-28 capsule by ity of 25 mg 00:00: mouth 3 [place] capsule 00 (three) Medical times Branch daily as needed for Anxiety. LORazepam 2023-0 Yes [id number] 1mg Take 1 [facility] (ATIVAN) 1 2-28 tablet by ity of mg tablet 00:00: mouth 2 [place] 00 (two) Medical times Branch daily as needed for Anxiety or Agitation. hydrOXYzine 2023-0 Yes [id number] 25mg Take 1 [facility] (VISTARIL) 2-28 capsule by ity of 25 mg 00:00: mouth 3 [place] capsule 00 (three) Medical times Branch daily as needed for Anxiety. LORazepam 2023-0 Yes [id number] 1mg Take 1 [facility] (ATIVAN) 1 2-28 tablet by ity of mg tablet 00:00: mouth 2 [place] 00 (two) Medical times Branch daily as needed for Anxiety or Agitation. hydrOXYzine 2023-0 Yes [id number] 25mg Take 1 [facility] (VISTARIL) 2-28 capsule by ity of 25 mg 00:00: mouth 3 [place] capsule 00 (three) Medical times Branch daily as needed for Anxiety. LORazepam 2023-0 Yes [id number] 1mg Take 1 [facility] (ATIVAN) 1 2-28 tablet by ity of mg tablet 00:00: mouth 2 [place] 00 (two) Medical times Branch daily as needed for Anxiety or Agitation. LORazepam 2023-0 Yes [id number] 1mg Take 1 [facility] (ATIVAN) 1 2-28 tablet by ity of mg tablet 00:00: mouth 2 [place] 00 (two) Medical times Branch daily as needed for Anxiety or Agitation. LORazepam 2023-0 Yes [id number] 1mg Take 1 [facility] (ATIVAN) 1 2-28 tablet by ity of mg tablet 00:00: mouth 2 [place] 00 (two) Medical times Branch daily as needed for Anxiety or Agitation. hydrOXYzine 2023-0 Yes [id number] 25mg Take 1 [facility] (VISTARIL) 2-28 capsule by ity of 25 mg 00:00: mouth 3 [place] capsule 00 (three) Medical times Branch daily as needed for Anxiety. LORazepam 2023-0 Yes [id number] 1mg Take 1 [facility] (ATIVAN) 1 2-28 tablet by ity of mg tablet 00:00: mouth 2 00 (two) Medical times Branch daily as needed for Anxiety or Agitation. hydrOXYzine 2023-0 Yes [id number] 25mg Take 1 [facility] (VISTARIL) 2-28 capsule by ity of 25 mg 00:00: mouth 3 [place] capsule 00 (three) Medical times Branch daily as needed for Anxiety. LORazepam 2023-0 Yes [id number] 1mg Take 1 [facility] (ATIVAN) 1 2-28 tablet by ity of mg tablet 00:00: mouth 2 00 (two) Medical times Branch daily as needed for Anxiety or Agitation. hydrOXYzine 2023-0 Yes [id number] 25mg Take 1 [facility] (VISTARIL) 2-28 capsule by ity of 25 mg 00:00: mouth 3 [place] capsule 00 (three) Medical times Branch daily as needed for Anxiety. LORazepam 2023-0 Yes [id number] 1mg Take 1 [facility] (ATIVAN) 1 2-28 tablet by ity of mg tablet 00:00: mouth 2 [place] 00 (two) Medical times Branch daily as needed for Anxiety or Agitation. hydrOXYzine 2023-0 Yes [id number] 25mg Take 1 [facility] (VISTARIL) 2-28 capsule by ity of 25 mg 00:00: mouth 3 [place] capsule 00 (three) Medical times Branch daily as needed for Anxiety. LORazepam 2023-0 Yes [id number] 1mg Take 1 [facility] (ATIVAN) 1 2-28 tablet by ity of mg tablet 00:00: mouth 2 [place] 00 (two) Medical times Branch daily as needed for Anxiety or Agitation. hydrOXYzine 2023-0 Yes [id number] 25mg Take 1 [facility] (VISTARIL) 2-28 capsule by ity of 25 mg 00:00: mouth 3 [place] capsule 00 (three) Medical times Branch daily as needed for Anxiety. LORazepam 2023-0 Yes [id number] 1mg Take 1 [facility] (ATIVAN) 1 2-28 tablet by ity of mg tablet 00:00: mouth 2 [place] 00 (two) Medical times Branch daily as needed for Anxiety or Agitation. hydrOXYzine 2023-0 Yes [id number] 25mg Take 1 [facility] (VISTARIL) 2-28 capsule by ity of 25 mg 00:00: mouth 3 [place] capsule 00 (three) Medical times Branch daily as needed for Anxiety. LORazepam 3-0 Yes [id number] 1mg Take 1 [facility] (ATIVAN) 1 2-28 tablet by ity of mg tablet 00:00: mouth 2 00 (two) Medical times Branch daily as needed for Anxiety or Agitation. hydrOXYzine 3-0 Yes [id number] 25mg Take 1 [facility] (VISTARIL) 2-28 capsule by ity of 25 mg 00:00: mouth 3 [place] capsule 00 (three) Medical times Branch daily as needed for Anxiety. LORazepam 3-0 Yes [id number] 1mg Take 1 [facility] (ATIVAN) 1 2-28 tablet by ity of mg tablet 00:00: mouth 2 00 (two) Medical times Branch daily as needed for Anxiety or Agitation. hydrOXYzine 2023-0 Yes [id number] 25mg Take 1 [facility] (VISTARIL) 2-28 capsule by ity of 25 mg 00:00: mouth 3 [place] capsule 00 (three) Medical times Branch daily as needed for Anxiety. hydrOXYzine 2023-0 3- No [id number] 25mg Take 1 [facility] (VISTARIL) 2-28 06-27 capsule by it y of 25 mg 00:00: 00:00 mouth 3 [place] capsule 00 :00 (three) Medical times Branch daily as needed for Anxiety. iopamidol 3-0 2023- No [id number] 75mL 75 mL, [facility] (ISOVUE 2-07 02-07 Intravenou ity o f 370-500 mL) 09:30: 21:29 s, ONCE, 1 [place] injection 00 :00 dose, On Medica l 75 mL [facility] 10/13/22 Branch at 0330, Routine dicyclomine 2022- No 20mg 20 mg, Uni vers (BENTYL) 10-13 Intramuscu ity of injection 09:15: 21:14 [place], ONCE, [place] 20 mg 00 :00 1 dose, On Medical [facility] 10/13/22 Branch at 0315, Routine famotidine Yes TAKE 1 Unive rs 20 mg 1-25 TABLET BY ity of tablet 00:00: MOUTH IN [place] [address] [facility] MORNING [place] AND IN THE EVENING FOR 5 DAYS famotidine 0 Yes TAKE 1 Unive rs 20 mg 1-25 TABLET BY ity of tablet 00:00: MOUTH IN [address] MORNING [place] AND IN THE EVENING FOR 5 DAYS famotidine 0 Yes TAKE 1 Unive rs 20 mg 1-25 TABLET BY ity of tablet 00:00: MOUTH IN [address] MORNING [place] AND IN THE EVENING FOR 5 DAYS famotidine 0 Yes TAKE 1 Unive rs 20 mg 1-25 TABLET BY ity of tablet 00:00: MOUTH IN [place] [address] [facility] MORNING [place] AND IN THE EVENING FOR 5 DAYS famotidine 0 Yes TAKE 1 Unive rs 20 mg 1-25 TABLET BY ity of tablet 00:00: MOUTH IN [place] [address] [facility] MORNING [place] AND IN THE EVENING FOR 5 DAYS famotidine 0 Yes TAKE 1 Unive rs 20 mg 1-25 TABLET BY ity of tablet 00:00: MOUTH IN [address] MORNING [place] AND IN THE EVENING FOR 5 DAYS famotidine 0 Yes TAKE 1 Unive rs 20 mg 1-25 TABLET BY ity of tablet 00:00: MOUTH IN [address] MORNING [place] AND IN THE EVENING FOR 5 DAYS famotidine 2022-0 Yes TAKE 1 Unive rs 20 mg 1-25 TABLET BY ity of tablet 00:00: MOUTH IN [address] MORNING [place] AND IN THE EVENING FOR 5 DAYS famotidine 2022-0 Yes TAKE 1 Unive rs 20 mg 1-25 TABLET BY ity of tablet 00:00: MOUTH IN [place] 00 THE Medical MORNING Branch AND IN THE EVENING FOR 5 DAYS famotidine 0 Yes TAKE 1 Unive rs 20 mg 1-25 TABLET BY ity of tablet 00:00: MOUTH IN [place] 00 THE Medical MORNING Branch AND IN THE EVENING FOR 5 DAYS famotidine 0 Yes TAKE 1 Unive rs 20 mg 1-25 TABLET BY ity of tablet 00:00: MOUTH IN [place] 00 THE Medical MORNING Branch AND IN THE EVENING FOR 5 DAYS famotidine 2022-0 Yes TAKE 1 Unive rs 20 mg 1-25 TABLET BY ity of tablet 00:00: MOUTH IN [place] 00 THE Medical MORNING Branch AND IN THE EVENING FOR 5 DAYS famotidine 2022- No TAKE 1 Univ ers 20 mg 1-25 05-12 TABLET BY ity of tablet 00:00: 00:00 MOUTH IN [place] 00 :00 THE Medical MORNING Branch AND [...] at 1830, 1 mL predniSONE 2022- No [id number] 40mg Take 2 [facility] 20 mg 09-10 tablets by ity of tablet 00:00: 05:59 mouth in [place] 00 :00 the Medical morning Branch for 5 days. famotidine 0 2022- No [id number] 20mg Take 1 [facility] (PEPCID) 20 09-09 tablet by it y of mg tablet 00:00: 05:59 mouth in [facility] 00 :00 the Medical morning Branch and 1 tablet in the evening. Do all this for 5 days. HYDROcodone 2021-09- No 1{tbl} 1 tablet, [facility] -acetaminop 2 12-13 Oral, ity of hen (NORCO) 00:00: 22:59 ONCE, 1 [place] 10-325 mg 00 :00 dose, On Medica l tablet 1 Tue Branch tablet 08/18/22 at 1800, Routine oseltamivir 2021-09- No [id number] 75mg Take 1 [facility] (TAMIFLU) 10-19 capsule by ity of 75 mg 00:00: [...] ity of immediate 00:00: mouth. [place] release Medical tablet Branch oxyCODONE 5 2021-0 Yes 5mg Take 1 Univ ers mg 9-28 tablet by ity of immediate 00:00: mouth. [place] release Medical tablet Branch oxyCODONE 5 2021-0 Yes 5mg Take 1 Univ ers mg 9-28 tablet by ity of immediate 00:00: mouth. [place] release Medical tablet Branch oxyCODONE 5 2021-0 Yes 5mg Take 1 Univ ers mg 9-28 tablet by ity of immediate 00:00: mouth. [place] release Medical tablet Branch oxyCODONE 5 2021-0 Yes 5mg Take 1 Univ ers mg 9-28 tablet by ity of immediate 00:00: mouth. [place] release Medical tablet Branch oxyCODONE 5 2021-0 [...] 500 mg ity of tablet 00:00: tablet [place] Medical Branch naproxen 2021-0 2023- No naproxen Univ ers 500 mg 9-16 05-12 500 mg ity of tablet 00:00: 00:00 tablet [place] 00 : Medical Branch prazosin 2 2021-0 Yes 2mg Take 1 Unive rs mg capsule 9-15 capsule by ity of 00:00: mouth. [place] Medical Branch prazosin 2 2021-0 Yes 2mg Take 1 Unive rs mg capsule 9-15 capsule by ity of 00:00: mouth. [place] Medical Branch prazosin 2 2021-0 Yes 2mg Take 1 Unive rs mg capsule 9-15 capsule by ity of 00:00: mouth. [place] Medical Branch prazosin 2 2021-0 Yes 2mg Take 1 Unive rs mg capsule 9-15 capsule by ity of 00:00: mouth. [place] [facility] Branch prazosin 2 2021-0 Yes 2mg Take 1 Unive rs mg capsule 9-15 capsule by ity of 00:00: mouth. [place] [facility] Branch prazosin 2 2021-0 Yes 2mg Take 1 Unive rs mg capsule 9-15 capsule by ity of 00:00: mouth. [place] Medical Branch prazosin 2 2021-0 Yes 2mg Take 1 Unive rs mg capsule 9-15 capsule by ity of 00:00: mouth. [place] [facility] Branch prazosin 2 2021-0 Yes 2mg Take 1 Unive rs mg capsule 9-15 capsule by ity of 00:00: mouth. [place] [facility] Branch prazosin 2 2021-0 Yes 2mg Take 1 Unive rs mg capsule 9-15 capsule by ity of 00:00: mouth. [place] [facility] Branch prazosin 2 2021-0 Yes 2mg [...] [place] 00 :00 Medical Branch naloxone 4 0 Yes CALL [...] patch 00 patch Medical Branch lidocaine 5 0 Yes lidocaine U nivers % (700 8-25 5 % ity of mg/patch) 00:00: topical [place] patch 00 patch Medical Branch lidocaine 5 0 Yes lidocaine U nivers % (700 8-25 5 % ity of mg/patch) 00:00: topical [place] patch 00 patch Medical Branch naloxone 4 0 3- No CALL 911. U nivers mg/actuatio 04-30 05-12 SPR ity of n nasal 00:00: 00:00 CONTENTS [place] spray 00 :00 OF ONE Medical SPRAYER Branch (0.1ML) INTO ONE NOSTRIL. REPEAT IN 2-3 MIN IF SYMPTOMS OF OPIOID EMERGENCY PERSIST, ALTERNATE NOSTRILS naloxegoL Yes [facility] (MOVANTIK) 8-23 ity of [...] 12.5 mg Tab 00:00: Medical Branch naloxegoL 0 Yes [facility] (MOVANTIK) 8-23 ity of 12.5 mg Tab 00:00: Medical Branch naloxegoL 0 Yes [facility] (MOVANTIK) 8-23 ity of 12.5 mg Tab 00:00: Medical Branch naloxegoL 0 Yes [facility] (MOVANTIK) 8-23 ity of 12.5 mg Tab 00:00: Medical Branch naloxegoL 0 Yes [facility] (MOVANTIK) 8-23 ity of 12.5 mg Tab 00:00: Medical Branch naloxegoL 0 Yes [facility] (MOVANTIK) 8-23 ity of 12.5 mg Tab 00:00: Medical Branch naloxegoL 0 Yes [facility] (MOVANTIK) 8-23 ity of 12.5 mg Tab 00:00: Medical Branch venlafaxine 0 Yes Univer s XR 37.5 mg 8-17 ity of 24 hr 00:00: [place] capsule Medical Branch venlafaxine 0 Yes Univer s XR 37.5 mg 8-17 ity of 24 hr 00:00: [place] capsule Medical Branch venlafaxine 0 Yes Univer s XR 37.5 mg 8-17 ity of 24 hr 00:00: [place] capsule Medical Branch venlafaxine 0 Yes Univer s XR 37.5 mg 8-17 ity of 24 hr 00:00: [place] capsule Medical Branch venlafaxine 2021-0 Yes Univer s XR 37.5 mg 8-17 ity of 24 hr 00:00: [place] capsule Medical Branch venlafaxine 2021-0 Yes Univer s XR 37.5 mg 8-17 ity of 24 hr 00:00: [place] capsule Medical Branch venlafaxine 2021-0 Yes Univer s XR 37.5 mg 8-17 ity of 24 hr 00:00: [place] capsule Medical Branch venlafaxine 2021-0 Yes Univer s XR 37.5 mg 8-17 ity of 24 hr 00:00: [place] capsule Medical Branch venlafaxine 2021-0 Yes Univer s [...] s mg tablet 7-06 ity of 00:00: 00 Medical Branch HYDROcodone 2021-0 Yes TAKE 1 Univ ers -acetaminop 7-06 TABLET BY ity of hen 10-325 00:00: MOUTH [place] mg tablet 00 EVERY 6 Medical HOURS FOR Branch UP TO 7 DAYS NEEDED FOR PAIN diazePAM 10 2021-0 Yes Univer s mg tablet 7-06 ity of 00:00: 00 Medical Branch HYDROcodone 2021-0 Yes TAKE 1 Univ ers -acetaminop 7-06 TABLET BY ity of hen 10-325 00:00: MOUTH [place] mg tablet 00 EVERY 6 Medical HOURS FOR Branch UP TO 7 DAYS NEEDED FOR PAIN diazePAM 10 2021-0 Yes Univer s mg tablet 7-06 ity of 00:00: 00 Medical Branch HYDROcodone 2021-0 Yes TAKE [...] s mg tablet 7-06 ity of 00:00: 00 Medical Branch HYDROcodone 2021-0 Yes TAKE [...] of 00:00: [place] 00 Medical Branch HYDROcodone Yes TAKE 1 Univ ers -acetaminop 7-06 TABLET BY ity of hen 10-325 00:00: MOUTH [place] mg tablet 00 EVERY 6 Medical HOURS FOR Branch UP TO 7 DAYS NEEDED FOR PAIN diazePAM 10 Yes Univer s mg tablet 7-06 ity of 00:00: [place] 00 Medical Branch HYDROcodone 2021- No [id number] 1{tbl} Q6H Take 1 Methodi -acetaminop 5-17 05-[address] [facility] ([employer]) 13:50: 00:00 mouth [facility] 10-325 mg 15 :00 every 6 l per tablet (six) hours as needed .acute pain. prn HYDROcodone 2021- No [id number] 1{tbl} Q6H Take 1 Methodi -acetaminop 5-17 05-[address] [facility] ([employer]) 13:50: 00:00 mouth [facility] 10-325 mg 15 :00 every 6 l per tablet (six) hours as needed .acute pain. prn HYDROcodone 2021- No [id number] 1{tbl} Q6H Take 1 Methodi -acetaminop 5-17 05-[address] [employer] ([employer]) 13:50: 00:00 mouth [facility] 10-325 mg 15 :00 every 6 l per tablet (six) hours as needed .acute pain. prn HYDROcodone 2021- No [id number] 1{tbl} Q6H Take 1 Methodi -acetaminop 5-17 05-[address] [facility] ([employer]) 13:50: 00:00 mouth [facility] 10-325 mg 15 :00 every 6 l per tablet (six) hours as needed .acute pain. prn HYDROcodone 2021- No [id number] 1{tbl} Q6H Take 1 Methodi -acetaminop 5-17 05-[address] [employer] ([employer]) 13:50: 00:00 mouth [facility] 10-325 mg [...] hours as needed. cyclobenzap 2022-0 Yes 10mg Q.[id number] Take 10 mg Methodi rine 5-17 [id number] mouth [address] (FLEXERIL) 13:09: 3D [...] hours as needed. cyclobenzap 2022-0 Yes 10mg Q.[id number] Take 10 mg Methodi rine 5-17 [id number] mouth [address] (FLEXERIL) 13:09: 3D [...] hours as needed. cyclobenzap 2022-0 Yes 10mg Q.[id number] Take 10 mg Methodi rine 5-17 [id number] [facility] [address] (FLEXERIL) 13:09: 3D [...] hours as needed. cyclobenzap 2022-0 Yes 10mg Q.[id number] Take 10 mg Methodi rine 5-17 [id number] mouth [address] (FLEXERIL) 13:09: 3D [...] hours as needed. cyclobenzap 2022-0 Yes 10mg Q.[id number] Take 10 mg Methodi rine 5-17 [id number] [facility] [address] (FLEXERIL) 13:09: 3D [...] hours as needed. cyclobenzap 2022-0 Yes 10mg Q.[id number] Take 10 mg Methodi rine 5-17 [id number] [facility] [address] (FLEXERIL) 13:09: 3D [...] hours as needed. cyclobenzap 2022-0 Yes 10mg Q.[id number] Take 10 mg Methodi rine 5-17 [id number] [facility] [address] (FLEXERIL) 13:09: 3D (three) [facility] 10 mg 39 times a l tablet day as needed for muscle spasms. cyclobenzap 2022-0 Yes 10mg Q.[id number] Take 10 mg Methodi rine 5-17 [id number] [facility] [address] (FLEXERIL) 13:09: 3D [...] 12 l (twelve) hours as needed. HYDROcodone 2021-0 2021- No [id number] 1{tbl} Q6H Take 1 [facility]i -acetaminop 5-17 06-[address] [facility] ([employer]) 00:00: 04:59 mouth [facility] 10-325 mg 00 :00 every 6 l per tablet (six) hours as needed for severe pain for up to 30 days .chronic pain. prn Max Daily Amount: 4 tablets HYDROcodone 2021-0 2021- No [id number] 1{tbl} Q6H Take 1 [facility] -acetaminop 5-17 06-[address] [facility] ([employer]) 00:00: 04:59 mouth [facility] 10-325 mg 00 :00 every 6 l per tablet (six) hours as needed for severe pain for up to 30 days .chronic pain. prn Max Daily Amount: 4 tablets HYDROcodone 2022-0 2021- No [id number] 1{tbl} Q6H Take 1 [facility] -acetaminop 5-17 06-[address] [facility] ([employer]) 00:00: 04:59 mouth [facility] 10-325 mg 00 :00 every 6 l per tablet (six) hours as needed for severe pain for up to 30 days .chronic pain. prn Max Daily Amount: 4 tablets HYDROcodone 2022-0 2021- No [id number] 1{tbl} Q6H Take 1 [facility]i -acetaminop 5-17 06-[address] [facility] ([employer]) 00:00: 04:59 mouth [facility] 10-325 mg 00 :00 every 6 l per tablet (six) hours as needed for severe pain for up to 30 days .chronic pain. prn Max Daily Amount: 4 tablets HYDROcodone 2-0 2021- No [id number] 1{tbl} Q6H Take 1 [facility]i -acetaminop 5-17 06-[address] [employer] ([employer]) 00:00: 04:59 mouth [facility] 10-325 mg 00 :00 every 6 l per tablet (six) hours as needed for severe pain for up to 30 days .chronic pain. prn Max Daily Amount: 4 tablets HYDROcodone 2-0 2021- No [id number] 1{tbl} Q6H Take 1 [facility]i -acetaminop 5-17 06-[address] [facility] ([employer]) 00:00: 04:59 mouth [facility] 10-325 mg 00 :00 every 6 l per tablet (six) hours as needed for severe pain for up to 30 days .chronic pain. prn Max Daily Amount: 4 tablets HYDROcodone 2022-0 2021- No [id number] 1{tbl} Q6H Take 1 [facility]i -acetaminop 5-17 06-[address] [facility] ([facility]) 00:00: 04:59 mouth [facility] 10-325 mg 00 :00 every 6 l per tablet (six) hours as needed for severe pain for up to 30 days .chronic pain. prn Max Daily Amount: 4 tablets diazePAM 2-0 2- No 10mg Q6H Take 10 mg Me [...] up to 60 days. diazePAM 2020-09- No [id number] 10mg Q12H Take 1 [facility] (VALIUM) 10 10-15 tablet (10 s t MG tablet 00:00: 05:59 mg total) [facility] 00 :00 by mouth l every 12 (twelve) hours as needed for anxiety for up to 30 days. diazePAM 2020-09- No [id number] 10mg Q12H Take 1 [facility] (VALIUM) 10 10-15 tablet (10 s t MG tablet 00:00: 05:59 mg total) [facility] 00 :00 by mouth l every 12 (twelve) hours as needed for anxiety for up to 30 days. diazePAM 2020-09- No [id number] 10mg Q12H Take 1 [facility] (VALIUM) 10 10-15 tablet (10 s t MG tablet 00:00: 05:59 mg total) [facility] 00 :00 by mouth l every 12 (twelve) hours as needed for anxiety for up to 30 days. diazePAM 2020-09- No [id number] 10mg Q12H Take 1 [facility] (VALIUM) [...] needed. diazePAM 2020-09 No 10mg Q12H Take 1 [...] Take 10 mg [facility] (VALIUM) 10 09-09- by mouth st MG tablet 08:53: 00:00 every 8 [facility] 41 :00 (eight) l hours as needed for anxiety. diazePAM 2020-09- No [id number] 10mg Q12H Take 1 [facility] (VALIUM) 10 09-09 12-05 tablet (10 s t MG tablet 00:00: 05:59 mg total) [facility] 00 :00 by mouth l every 12 (twelve) hours as needed for anxiety for up to 30 days. diazePAM 2020-09- No [id number] 10mg Q12H Take 1 [facility] (VALIUM) 10 09-09 12-05 tablet (10 s t MG tablet 00:00: 05:59 mg total) [facility] 00 :00 by mouth l every 12 (twelve) hours as needed for anxiety for up to 30 days. diazePAM 2020-09- No [id number] 10mg Q12H Take 1 [facility] (VALIUM) 10 09-09 12-05 tablet (10 s t MG tablet 00:00: 05:59 mg total) [facility] 00 :00 by mouth l every 12 (twelve) hours as needed for anxiety for up to 30 days. diazePAM 2020-09- No [id number] 10mg Q12H Take 1 [facility] (VALIUM) 10 09-09 12-05 tablet (10 s t MG tablet 00:00: 05:59 mg total) [facility] 00 :00 by mouth l every 12 (twelve) hours as needed for anxiety for up to 30 days. azithromyci 2020-09- No [id number] 250mg QD Take 1 Methodi n 0- tablet st (Zithromax 00:00: 00:00 (250 mg [facility] Z-Ok) 250 00 :00 total) by l MG tablet mouth daily. Take 2 tablets the first day, then 1 tablet daily for 4 days. pantoprazol 2020-0 Yes [id number] 40mg Take 1 Univers e 4-18 tablet by ity of (PROTONIX) 00:00: mouth [place] 40 mg EC 00 daily. Medical tablet Branch dicyclomine 0 Yes [id number] 20mg Take 1 [facility] 20 mg 4-18 tablet by ity of tablet 00:00: mouth [place] 00 every 6 Medical (six) Branch hours as needed for Abdominal pain. ondansetron 0 Yes [id number] 4mg Take 1 [facility] (ZOFRAN) 4 4-18 tablet by ity of mg tablet 00:00: mouth [place] 00 every 8 Medical (eight) Branch hours as needed for Nausea and Vomiting (N/V). pantoprazol 0 Yes [id number] 40mg Take 1 Univers e 4-18 tablet by ity of (PROTONIX) 00:00: mouth [place] 40 mg EC 00 daily. Medical tablet Branch dicyclomine 0 Yes [id number] 20mg Take 1 [facility] 20 mg 4-18 tablet by ity of tablet 00:00: mouth [place] 00 every 6 Medical (six) Branch hours as needed for Abdominal pain. ondansetron 0 Yes [id number] 4mg Take 1 [facility] (ZOFRAN) 4 4-18 tablet by ity of mg tablet 00:00: mouth [place] 00 every 8 Medical (eight) Branch hours as needed for Nausea and Vomiting (N/V). pantoprazol 2020-0 Yes [id number] 40mg Take 1 Univers e 4-18 tablet by ity of (PROTONIX) 00:00: mouth [place] 40 mg EC 00 daily. Medical tablet Branch dicyclomine 2020-0 Yes [id number] 20mg Take 1 [facility] 20 mg 4-18 tablet by ity of tablet 00:00: mouth [place] 00 every 6 Medical (six) Branch hours as needed for Abdominal pain. ondansetron 2020-0 Yes [id number] 4mg Take 1 [facility] (ZOFRAN) 4 4-18 tablet by ity of mg tablet 00:00: mouth [place] 00 every 8 Medical (eight) Branch hours as needed for Nausea and Vomiting (N/V). pantoprazol 2020-0 Yes [id number] 40mg Take 1 [facility] e 4-18 tablet by ity of (PROTONIX) 00:00: mouth [place] 40 mg EC 00 daily. Medical tablet Branch dicyclomine 2020-0 Yes [id number] 20mg Take 1 [facility] 20 mg 4-18 tablet by ity of tablet 00:00: mouth [place] 00 every 6 Medical (six) Branch hours as needed for Abdominal pain. ondansetron 2020-0 Yes [id number] 4mg Take 1 [facility] (ZOFRAN) 4 4-18 tablet by ity of mg tablet 00:00: mouth [place] 00 every 8 Medical (eight) Branch hours as needed for Nausea and Vomiting (N/V). pantoprazol 2020-0 Yes [id number] 40mg Take 1 Univers e 4-18 tablet by ity of (PROTONIX) 00:00: mouth [place] 40 mg EC 00 daily. Medical tablet Branch dicyclomine 2020-0 Yes [id number] 20mg Take 1 [facility] 20 mg 4-18 tablet by ity of tablet 00:00: mouth [place] 00 every 6 Medical (six) Branch hours as needed for Abdominal pain. ondansetron 2020-0 Yes [id number] 4mg Take 1 [facility] (ZOFRAN) 4 4-18 tablet by ity of mg tablet 00:00: mouth [place] 00 every 8 Medical (eight) Branch hours as needed for Nausea and Vomiting (N/V). pantoprazol 2020-0 Yes [id number] 40mg Take 1 [facility] e 4-18 tablet by ity of (PROTONIX) 00:00: mouth [place] 40 mg EC 00 daily. Medical tablet Branch dicyclomine 2020-0 Yes [id number] 20mg Take 1 [facility] 20 mg 4-18 tablet by ity of tablet 00:00: mouth [place] 00 every 6 Medical (six) Branch hours as needed for Abdominal pain. ondansetron 2020-0 Yes [id number] 4mg Take 1 [facility] (ZOFRAN) 4 4-18 tablet by ity of mg tablet 00:00: mouth [place] 00 every 8 Medical (eight) Branch hours as needed for Nausea and Vomiting (N/V). pantoprazol 2020-0 Yes [id number] 40mg Take 1 [facility] e 4-18 tablet by ity of (PROTONIX) 00:00: mouth [place] 40 mg EC 00 daily. Medical tablet Branch dicyclomine 2020-0 Yes [id number] 20mg Take 1 [facility] 20 mg 4-18 tablet by ity of tablet 00:00: mouth [place] 00 every 6 Medical (six) Branch hours as needed for Abdominal pain. ondansetron 2020-0 Yes [id number] 4mg Take 1 [facility] (ZOFRAN) 4 4-18 tablet by ity of mg tablet 00:00: mouth [place] 00 every 8 Medical (eight) Branch hours as needed for Nausea and Vomiting (N/V). pantoprazol 2020-0 Yes [id number] 40mg Take 1 Univers e 4-18 tablet by ity of (PROTONIX) 00:00: mouth [place] 40 mg EC 00 daily. Medical tablet Branch dicyclomine 2020-0 Yes [id number] 20mg Take 1 [facility] 20 mg 4-18 tablet by ity of tablet 00:00: mouth [place] 00 every 6 Medical (six) Branch hours as needed for Abdominal pain. ondansetron 2020-0 Yes [id number] 4mg Take 1 [facility] (ZOFRAN) 4 4-18 tablet by ity of mg tablet 00:00: mouth [place] 00 every 8 Medical (eight) Branch hours as needed for Nausea and Vomiting (N/V). pantoprazol 2020-0 Yes [id number] 40mg Take 1 Univers e 4-18 tablet by ity of (PROTONIX) 00:00: mouth [place] 40 mg EC 00 daily. Medical tablet Branch dicyclomine 2020-0 Yes [id number] 20mg Take 1 [facility] 20 mg 4-18 tablet by ity of tablet 00:00: mouth [place] 00 every 6 Medical (six) Branch hours as needed for Abdominal pain. ondansetron 2020-0 Yes [id number] 4mg Take 1 [facility] (ZOFRAN) 4 4-18 tablet by ity of mg tablet 00:00: mouth [place] 00 every 8 Medical (eight) Branch hours as needed for Nausea and Vomiting (N/V). pantoprazol 2020-0 Yes [id number] 40mg Take 1 [facility] 4[facility] tablet by [facility] (PROTONIX) 00:00: mouth [place] 40 mg EC 00 daily. [facility] tablet Branch dicyclomine 2021-0 Yes [id number] 20mg Take 1 [facility] 20 mg 4-18 tablet by [facility] tablet 00:00: mouth [place] 00 every 6 Medical (six) Branch hours as needed for Abdominal pain. ondansetron 2020-0 Yes [id number] 4mg Take 1 [facility] (ZOFRAN) 4 4-18 tablet by [facility] mg tablet 00:00: mouth [place] 00 every 8 Medical (eight) Branch hours as needed for Nausea and Vomiting (N/V). pantoprazol 2020-0 Yes [id number] 40mg Take 1 [facility] 4-18 tablet by [facility] (PROTONIX) 00:00: mouth [place] 40 mg EC 00 daily. [facility] tablet Branch dicyclomine 2020-0 Yes [id number] 20mg Take 1 [facility] 20 mg 4-18 tablet by [facility] tablet 00:00: mouth [place] 00 every 6 Medical (six) Branch hours as needed for Abdominal pain. ondansetron 2020-0 Yes [id number] 4mg Take 1 [facility] (ZOFR[facility]) 4 4-18 tablet by [facility] mg tablet 00:00: mouth [place] 00 every 8 Medical (eight) Branch hours as needed for Nausea and Vomiting (N/V). pantoprazol 2020-0 Yes [id number] 40mg Take 1 [facility] 4-18 tablet by [facility] (PROTONIX) 00:00: mouth [place] 40 mg EC 00 daily. [facility] tablet Branch dicyclomine 2020-0 Yes [id number] 20mg Take 1 [facility] 20 mg 4-18 tablet by [facility] tablet 00:00: mouth [place] 00 every 6 Medical (six) Branch hours as needed for Abdominal pain. ondansetron 2020-0 Yes [id number] 4mg Take 1 [facility] (ZOFR[facility]) 4 4-18 tablet by [facility] mg tablet 00:00: mouth [place] 00 every 8 Medical (eight) Branch hours as needed for Nausea and Vomiting (N/V). pantoprazol 2020-0 Yes [id number] 40mg Take 1 [facility] 4-18 tablet by [facility] (PROTONIX) 00:00: mouth [place] 40 mg EC 00 daily. [facility] tablet Branch dicyclomine 2020-0 Yes [id number] 20mg Take 1 [facility] 20 mg 4-18 tablet by [facility] tablet 00:00: mouth [place] 00 every 6 Medical (six) Branch hours as needed for Abdominal pain. ondansetron 2020-0 Yes [id number] 4mg Take 1 [facility] (ZOFR[facility]) 4 4-18 tablet by [facility] mg tablet 00:00: mouth [place] 00 every 8 Medical (eight) Branch hours as needed for Nausea and Vomiting (N/V). pantoprazol 2020-0 Yes [id number] 40mg Take 1 [facility] 4-18 tablet by [facility] (PROTONIX) 00:00: mouth [place] 40 mg EC 00 daily. [facility] tablet Branch dicyclomine 2020-0 Yes [id number] 20mg Take 1 [facility] 20 mg 4-18 tablet by [facility] tablet 00:00: mouth [place] 00 every 6 Medical (six) Branch hours as needed for Abdominal pain. ondansetron 2020-0 Yes [id number] 4mg Take 1 [facility] (ZOFR[facility]) 4 4-18 tablet by [facility] mg tablet 00:00: mouth [place] 00 every 8 Medical (eight) Branch hours as needed for Nausea and Vomiting (N/V). pantoprazol 2020-0 Yes [id number] 40mg Take 1 [facility] 4-18 tablet by [facility] (PROTONIX) 00:00: mouth [place] 40 mg EC 00 daily. [facility] tablet Branch dicyclomine 2020-0 Yes [id number] 20mg Take 1 [facility] 20 mg 4-18 tablet by [facility] tablet 00:00: mouth [place] 00 every 6 Medical (six) Branch hours as needed for Abdominal pain. ondansetron 2020-0 Yes [id number] 4mg Take 1 [facility] (ZOFRAN) 4 4-18 tablet by [facility] mg tablet 00:00: mouth [place] 00 every 8 Medical (eight) Branch hours as needed for Nausea and Vomiting (N/V). pantoprazol 2020-0 Yes [id number] 40mg Take 1 [facility] e 4-18 tablet by [facility] (PROTONIX) 00:00: mouth [place] 40 mg EC 00 daily. [facility] tablet Branch dicyclomine 2020-0 Yes [id number] 20mg Take 1 [facility] 20 mg 4-18 tablet by [facility] of tablet 00:00: mouth [place] 00 every 6 Medical (six) Branch hours as needed for Abdominal pain. ondansetron 2020-0 Yes [id number] 4mg Take 1 [facility] (ZOFRAN) 4 4-18 tablet by [facility] of mg tablet 00:00: mouth [place] 00 every 8 Medical (eight) Branch hours as needed for Nausea and Vomiting (N/V). pantoprazol 2020-0 Yes [id number] 40mg Take 1 [facility] 4-18 tablet by [facility] (PROTONIX) 00:00: mouth [place] 40 mg EC 00 daily. [facility] tablet Branch dicyclomine 2020-0 Yes [id number] 20mg Take 1 [facility] 20 mg 4-18 tablet by [facility] of tablet 00:00: mouth [place] 00 every 6 Medical (six) Branch hours as needed for Abdominal pain. ondansetron 2020-0 Yes [id number] 4mg Take 1 [facility] (ZOFR[facility]) 4 4-18 tablet by [facility] of mg tablet 00:00: mouth [place] 00 every 8 Medical (eight) Branch hours as needed for Nausea and Vomiting (N/V). pantoprazol 2020-0 Yes [id number] 40mg Take 1 [facility] 4-18 tablet by [facility] (PROTONIX) 00:00: mouth [place] 40 mg EC 00 daily. [facility] tablet Branch dicyclomine 2020-0 Yes [id number] 20mg Take 1 [facility] 20 mg 4-18 tablet by [facility] of tablet 00:00: mouth [place] 00 every 6 Medical (six) Branch hours as needed for Abdominal pain. ondansetron 2020-0 Yes [id number] 4mg Take 1 [facility] (ZOFRAN) 4 4-18 tablet by [facility] of mg tablet 00:00: mouth [place] 00 every 8 Medical (eight) Branch hours as needed for Nausea and Vomiting (N/V). pantoprazol 2020-0 Yes [id number] 40mg Take 1 [facility] e 4-18 tablet by [facility] (PROTONIX) 00:00: mouth [place] 40 mg EC 00 daily. [facility] tablet Branch dicyclomine 2020-0 Yes [id number] 20mg Take 1 [facility] 20 mg 4-18 tablet by [facility] of tablet 00:00: mouth [place] 00 every 6 Medical (six) Branch hours as needed for Abdominal pain. ondansetron 2020-0 Yes [id number] 4mg Take 1 [facility] (ZOFRAN) 4 4-18 tablet by [facility] of mg tablet 00:00: mouth [place] 00 every 8 Medical (eight) Branch hours as needed for Nausea and Vomiting (N/V). pantoprazol 2020-0 Yes [id number] 40mg Take 1 [facility] 4-18 tablet by [facility] of (PROTONIX) 00:00: mouth [place] 40 mg EC 00 daily. [facility] tablet Branch dicyclomine 2020-0 Yes [id number] 20mg Take 1 [facility] 20 mg 4-18 tablet by [facility] of tablet 00:00: mouth [place] 00 every 6 Medical (six) Branch hours as needed for Abdominal pain. ondansetron 2020-0 Yes [id number] 4mg Take 1 [facility] (ZOFRAN) 4 4-18 tablet by [facility] of mg tablet 00:00: mouth [place] 00 every 8 Medical (eight) Branch hours as needed for Nausea and Vomiting (N/V). pantoprazol 2020-0 Yes [id number] 40mg Take 1 [facility] e 4-18 tablet by [facility] of (PROTONIX) 00:00: mouth [place] 40 mg EC 00 daily. [facility] tablet Branch dicyclomine 2020-0 Yes [id number] 20mg Take 1 [facility] 20 mg 4-18 tablet by [facility] of tablet 00:00: mouth [place] 00 every 6 Medical (six) Branch hours as needed for Abdominal pain. ondansetron 2020-0 Yes [id number] 4mg Take 1 [facility] (ZOFRAN) 4 4-18 tablet by [facility] of mg tablet 00:00: mouth [place] 00 every 8 Medical (eight) Branch hours as needed for Nausea and Vomiting (N/V). pantoprazol 2020-0 Yes [id number] 40mg Take 1 [facility] e 4-18 tablet by [facility] of (PROTONIX) 00:00: mouth [place] 40 mg EC 00 daily. [facility] tablet Branch dicyclomine 2020-0 Yes [id number] 20mg Take 1 [facility] 20 mg 4-18 tablet by [facility] of tablet 00:00: mouth [place] 00 every 6 Medical (six) Branch hours as needed for Abdominal pain. ondansetron 2020-0 Yes [id number] 4mg Take 1 [facility] (ZOFRAN) 4 4-18 tablet by [facility] of mg tablet 00:00: mouth [place] 00 every 8 Medical (eight) Branch hours as needed for Nausea and Vomiting (N/V). pantoprazol 2020-0 Yes [id number] 40mg Take 1 [facility] e 4-18 tablet by [facility] (PROTONIX) 00:00: mouth [place] 40 mg EC 00 daily. [facility] tablet Branch dicyclomine 2020-0 Yes [id number] 20mg Take 1 [facility] 20 mg 4-18 tablet by [facility] of tablet 00:00: mouth [place] 00 every 6 Medical (six) Branch hours as needed for Abdominal pain. ondansetron 2020-0 Yes [id number] 4mg Take 1 [facility] (ZOFRAN) 4 4-18 tablet by [facility] of mg tablet 00:00: mouth [place] 00 every 8 Medical (eight) Branch hours as needed for Nausea and Vomiting (N/V). pantoprazol 2020-0 Yes [id number] 40mg Take 1 [facility] e 4-18 tablet by [facility] (PROTONIX) 00:00: mouth [place] 40 mg EC 00 daily. [facility] tablet Branch dicyclomine 2020-0 Yes [id number] 20mg Take 1 [facility] 20 mg 4-18 tablet by [facility] tablet 00:00: mouth [place] 00 every 6 Medical (six) Branch hours as needed for Abdominal pain. ondansetron 2020-0 Yes [id number] 4mg Take 1 [facility] (ZOFRAN) 4 4-18 tablet by [facility] of mg tablet 00:00: mouth [place] 00 every 8 Medical (eight) Branch hours as needed for Nausea and Vomiting (N/V). pantoprazol 2020-0 Yes [id number] 40mg Take 1 [facility] e 4-18 tablet by [facility] (PROTONIX) 00:00: mouth [place] 40 mg EC 00 daily. Medical tablet Branch dicyclomine 2020-0 Yes [id number] 20mg Take 1 [facility] 20 mg 4-18 tablet by [facility] tablet 00:00: mouth [place] 00 every 6 Medical (six) Branch hours as needed for Abdominal pain. pantoprazol 2020-0 Yes [id number] 40mg Take 1 [facility] 4-18 tablet by [facility] (PROTONIX) 00:00: mouth [place] 40 mg EC 00 daily. [facility] tablet Branch dicyclomine 2020-0 Yes [id number] 20mg Take 1 [facility] 20 mg 4-18 tablet by [facility] tablet 00:00: mouth [place] 00 every 6 Medical (six) Branch hours as needed for Abdominal pain. pantoprazol 2020-0 Yes [id number] 40mg Take 1 [facility] e 4-18 tablet by [facility] of (PROTONIX) 00:00: mouth [place] 40 mg EC 00 daily. Medical tablet Branch dicyclomine 2020-0 Yes [id number] 20mg Take 1 [facility] 20 mg 4-18 tablet by [facility] of tablet 00:00: mouth [place] 00 every 6 Medical (six) Branch hours as needed for Abdominal pain. ondansetron 2020-0 Yes [id number] 4mg Take 1 [facility] (ZOFRAN) 4 4-18 tablet by [facility] of mg tablet 00:00: mouth [place] 00 every 8 Medical (eight) Branch hours as needed for Nausea and Vomiting (N/V). pantoprazol 2020-0 Yes [id number] 40mg Take 1 [facility] e 4-18 tablet by [facility] of (PROTONIX) 00:00: mouth [place] 40 mg EC 00 daily. Medical tablet Branch dicyclomine 2020-0 Yes [id number] 20mg Take 1 [facility] 20 mg 4-18 tablet by [facility] of tablet 00:00: mouth [place] 00 every 6 Medical (six) Branch hours as needed for Abdominal pain. ondansetron 2020-0 Yes [id number] 4mg Take 1 [facility] (ZOFRAN) 4 4-18 tablet by [facility] of mg tablet 00:00: mouth [place] 00 every 8 Medical (eight) Branch hours as needed for Nausea and Vomiting (N/V). pantoprazol 2020-0 Yes [id number] 40mg Take 1 [facility] e 4-18 tablet by [facility] of (PROTONIX) 00:00: mouth [place] 40 mg EC 00 daily. Medical tablet Branch dicyclomine 2020-0 Yes [id number] 20mg Take 1 [facility] 20 mg 4-18 tablet by [facility] of tablet 00:00: mouth [place] 00 every 6 Medical (six) Branch hours as needed for Abdominal pain. ondansetron 2020-0 Yes [id number] 4mg Take 1 [facility] (ZOFRAN) 4 4-18 tablet by [facility] of mg tablet 00:00: mouth [place] 00 every 8 Medical (eight) Branch hours as needed for Nausea and Vomiting (N/V). pantoprazol 2020-0 Yes [id number] 40mg Take 1 [facility] e 4-18 tablet by [facility] of (PROTONIX) 00:00: mouth [place] 40 mg EC 00 daily. Medical tablet Branch dicyclomine 2020-0 Yes [id number] 20mg Take 1 [facility] 20 mg 4-18 tablet by [facility] of tablet 00:00: mouth [place] 00 every 6 Medical (six) Branch hours as needed for Abdominal pain. ondansetron 2020-0 Yes [id number] 4mg Take 1 [facility] (ZOFRAN) 4 4-18 tablet by [facility] of mg tablet 00:00: mouth [place] 00 every 8 Medical (eight) Branch hours as needed for Nausea and Vomiting (N/V). pantoprazol 2020-0 Yes [id number] 40mg Take 1 [facility] e 4-18 tablet by [facility] of (PROTONIX) 00:00: mouth [place] 40 mg EC 00 daily. Medical tablet Branch dicyclomine 2020-0 Yes [id number] 20mg Take 1 [facility] 20 mg 4-18 tablet by [facility] of tablet 00:00: mouth [place] 00 every 6 Medical (six) Branch hours as needed for Abdominal pain. ondansetron 2020-0 Yes [id number] 4mg Take 1 [facility] (ZOFRAN) 4 4-18 tablet by [facility] of mg tablet 00:00: mouth [place] 00 every 8 Medical (eight) Branch hours as needed for Nausea and Vomiting (N/V). pantoprazol 2020-0 Yes [id number] 40mg Take 1 [facility] e 4-18 tablet by [facility] of (PROTONIX) 00:00: mouth [place] 40 mg EC 00 daily. Medical tablet Branch dicyclomine 2020-0 Yes [id number] 20mg Take 1 [facility] 20 mg 4-18 tablet by [facility] of tablet 00:00: mouth [place] 00 every 6 Medical (six) Branch hours as needed for Abdominal pain. ondansetron 2020-0 Yes [id number] 4mg Take 1 [facility] (ZOFRAN) 4 4-18 tablet by [facility] of mg tablet 00:00: mouth [place] 00 every 8 Medical (eight) Branch hours as needed for Nausea and Vomiting (N/V). pantoprazol 2020-0 Yes [id number] 40mg Take 1 [facility] e 4-18 tablet by [facility] of (PROTONIX) 00:00: mouth [place] 40 mg EC 00 daily. Medical tablet Branch dicyclomine 2020-0 Yes [id number] 20mg Take 1 [facility] 20 mg 4-18 tablet by [facility] of tablet 00:00: mouth [place] 00 every 6 Medical (six) Branch hours as needed for Abdominal pain. ondansetron 2020-0 Yes [id number] 4mg Take 1 [facility] (ZOFRAN) 4 4-18 tablet by [facility] of mg tablet 00:00: mouth [place] 00 every 8 Medical (eight) Branch hours as needed for Nausea and Vomiting (N/V). pantoprazol 2020-0 Yes [id number] 40mg Take 1 [facility] e 4-18 tablet by [facility] of (PROTONIX) 00:00: mouth [place] 40 mg EC 00 daily. Medical tablet Branch dicyclomine 2020-0 Yes [id number] 20mg Take 1 [facility] 20 mg 4-18 tablet by [facility] of tablet 00:00: mouth [place] 00 every 6 Medical (six) Branch hours as needed for Abdominal pain. ondansetron 2020-0 Yes [id number] 4mg Take 1 [facility] (ZOFRAN) 4 4-18 tablet by [facility] of mg tablet 00:00: mouth [place] 00 every 8 Medical (eight) Branch hours as needed for Nausea and Vomiting (N/V). pantoprazol 2020-0 Yes [id number] 40mg Take 1 [facility] e 4-18 tablet by [facility] of (PROTONIX) 00:00: mouth [place] 40 mg EC 00 daily. Medical tablet Branch dicyclomine 0 Yes [id number] 20mg Take 1 [facility] 20 mg 4-18 tablet by [facility] tablet 00:00: mouth [place] 00 every 6 Medical (six) Branch hours as needed for Abdominal pain. ondansetron 0 Yes [id number] 4mg Take 1 [facility] (ZOFRAN) 4 4-18 tablet by [facility] of mg tablet 00:00: mouth [place] 00 every 8 Medical (eight) Branch hours as needed for Nausea and Vomiting (N/V). pantoprazol 2020-0 Yes [id number] 40mg Take 1 [facility] e 4-18 tablet by [facility] of (PROTONIX) 00:00: mouth [place] 40 mg EC 00 daily. Medical tablet Branch dicyclomine 2020-0 Yes [id number] 20mg Take 1 [facility] 20 mg 4-18 tablet by [facility] of tablet 00:00: mouth [place] 00 every 6 Medical (six) Branch hours as needed for Abdominal pain. ondansetron 2020-0 Yes [id number] 4mg Take 1 [facility] (ZOFRAN) 4 4-18 tablet by [facility] of mg tablet 00:00: mouth [place] 00 every 8 Medical (eight) Branch hours as needed for Nausea and Vomiting (N/V). pantoprazol 2020-0 Yes [id number] 40mg Take 1 [facility] e 4-18 tablet by [facility] of (PROTONIX) 00:00: mouth [place] 40 mg EC 00 daily. Medical tablet Branch dicyclomine 2020-0 Yes [id number] 20mg Take 1 [facility] 20 mg 4-18 tablet by [facility] of tablet 00:00: mouth [place] 00 every 6 Medical (six) Branch hours as needed for Abdominal pain. ondansetron 2020-0 Yes [id number] 4mg Take 1 [facility] (ZOFRAN) 4 4-18 tablet by [facility] of mg tablet 00:00: mouth [place] 00 every 8 Medical (eight) Branch hours as needed for Nausea and Vomiting (N/V). pantoprazol 2020-0 Yes [id number] 40mg Take 1 [facility] e 4-18 tablet by [facility] of (PROTONIX) 00:00: mouth [place] 40 mg EC 00 daily. Medical tablet Branch dicyclomine 2020-0 Yes [id number] 20mg Take 1 [facility] 20 mg 4-18 tablet by [facility] of tablet 00:00: mouth [place] 00 every 6 Medical (six) Branch hours as needed for Abdominal pain. ondansetron 2020-0 Yes [id number] 4mg Take 1 [facility] (ZOFRAN) 4 4-18 tablet by [facility] of mg tablet 00:00: mouth [place] 00 every 8 Medical (eight) Branch hours as needed for Nausea and Vomiting (N/V). pantoprazol 2020-0 Yes [id number] 40mg Take 1 [facility] e 4-18 tablet by [facility] of (PROTONIX) 00:00: mouth [place] 40 mg EC 00 daily. Medical tablet Branch dicyclomine 2020-0 Yes [id number] 20mg Take 1 [facility] 20 mg 4-18 tablet by [facility] of tablet 00:00: mouth [place] 00 every 6 Medical (six) Branch hours as needed for Abdominal pain. ondansetron 2020-0 Yes [id number] 4mg Take 1 [facility] (ZOFRAN) 4 4-18 tablet by [facility] of mg tablet 00:00: mouth [place] 00 every 8 Medical (eight) Branch hours as needed for Nausea and Vomiting (N/V). pantoprazol 2020-0 Yes [id number] 40mg Take 1 [facility] e 4-18 tablet by [facility] of (PROTONIX) 00:00: mouth [place] 40 mg EC 00 daily. Medical tablet Branch dicyclomine 2020-0 Yes [id number] 20mg Take 1 [facility] 20 mg 4-18 tablet by [facility] of tablet 00:00: mouth [place] 00 every 6 Medical (six) Branch hours as needed for Abdominal pain. ondansetron 2020-0 Yes [id number] 4mg Take 1 [facility] (ZOFRAN) 4 4-18 tablet by [facility] of mg tablet 00:00: mouth [place] 00 every 8 Medical (eight) Branch hours as needed for Nausea and Vomiting (N/V). pantoprazol 2020-0 Yes [id number] 40mg Take 1 [facility] e 4-18 tablet by [facility] of (PROTONIX) 00:00: mouth [place] 40 mg EC 00 daily. Medical tablet Branch dicyclomine 2020-0 Yes [id number] 20mg Take 1 [facility] 20 mg 4-18 tablet by [facility] of tablet 00:00: mouth [place] 00 every 6 Medical (six) Branch hours as needed for Abdominal pain. ondansetron 2020-0 Yes [id number] 4mg Take 1 [facility] (ZOFRAN) 4 4-18 tablet by [facility] of mg tablet 00:00: mouth [place] 00 every 8 Medical (eight) Branch hours as needed for Nausea and Vomiting (N/V). pantoprazol 2020-0 Yes [id number] 40mg Take 1 [facility] e 4-18 tablet by [facility] of (PROTONIX) 00:00: mouth [place] 40 mg EC 00 daily. Medical tablet Branch dicyclomine 2020-0 Yes [id number] 20mg Take 1 [facility] 20 mg 4-18 tablet by [facility] of tablet 00:00: mouth [place] 00 every 6 Medical (six) Branch hours as needed for Abdominal pain. ondansetron 2020-0 Yes [id number] 4mg Take 1 [facility] (ZOFRAN) 4 4-18 tablet by [facility] of mg tablet 00:00: mouth [place] 00 every 8 Medical (eight) Branch hours as needed for Nausea and Vomiting (N/V). pantoprazol 2020-0 Yes [id number] 40mg Take 1 [facility] e 4-18 tablet by [facility] of (PROTONIX) 00:00: mouth [place] 40 mg EC 00 daily. Medical tablet Branch dicyclomine 2020-0 Yes [id number] 20mg Take 1 [facility] 20 mg 4-18 tablet by [facility] of tablet 00:00: mouth [place] 00 every 6 Medical (six) Branch hours as needed for Abdominal pain. ondansetron 2020-0 Yes [id number] 4mg Take 1 [facility] (ZOFRAN) 4 4-18 tablet by [facility] of mg tablet 00:00: mouth [place] 00 every 8 Medical (eight) Branch hours as needed for Nausea and Vomiting (N/V). pantoprazol 2020-0 Yes [id number] 40mg Take 1 [facility] e 4-18 tablet by [facility] of (PROTONIX) 00:00: mouth [place] 40 mg EC 00 daily. Medical tablet Branch dicyclomine 2020-0 Yes [id number] 20mg Take 1 [facility] 20 mg 4-18 tablet by [facility] of tablet 00:00: mouth [place] 00 every 6 Medical (six) Branch hours as needed for Abdominal pain. ondansetron 2020-0 Yes [id number] 4mg Take 1 [facility] (ZOFRAN) 4 4-18 tablet by [facility] of mg tablet 00:00: mouth [place] 00 every 8 Medical (eight) Branch hours as needed for Nausea and Vomiting (N/V). pantoprazol 2020-0 Yes [id number] 40mg Take 1 [facility] e 4-18 tablet by [facility] of (PROTONIX) 00:00: mouth [place] 40 mg EC 00 daily. Medical tablet Branch dicyclomine 2020-0 Yes [id number] 20mg Take 1 [facility] 20 mg 4-18 tablet by [facility] of tablet 00:00: mouth [place] 00 every 6 Medical (six) Branch hours as needed for Abdominal pain. ondansetron 2020-0 Yes [id number] 4mg Take 1 [facility] (ZOFRAN) 4 4-18 tablet by [facility] of mg tablet 00:00: mouth [place] 00 every 8 Medical (eight) Branch hours as needed for Nausea and Vomiting (N/V). pantoprazol 2020-0 Yes [id number] 40mg Take 1 [facility] e 4-18 tablet by [facility] of (PROTONIX) 00:00: mouth [place] 40 mg EC 00 daily. Medical tablet Branch dicyclomine 2020-0 Yes [id number] 20mg Take 1 [facility] 20 mg 4-18 tablet by [facility] of tablet 00:00: mouth [place] 00 every 6 Medical (six) Branch hours as needed for Abdominal pain. ondansetron 2021-0 Yes [id number] 4mg Take 1 [facility] ([facility]FR[facility]) 4 4-18 tablet by [facility] of mg tablet 00:00: mouth [place] 00 every 8 Medical (eight) Branch hours as needed for Nausea and Vomiting (N/V). pantoprazol 2020-0 Yes [id number] 40mg Take 1 [facility] e 4-18 tablet by [facility] of (PROTONIX) 00:00: mouth [place] 40 mg EC 00 daily. Medical tablet Branch dicyclomine 2020-0 Yes [id number] 20mg Take 1 [facility] 20 mg 4-18 tablet by [facility] of tablet 00:00: mouth [place] 00 every 6 Medical (six) Branch hours as needed for Abdominal pain. ondansetron 2020-0 Yes [id number] 4mg Take 1 [facility] (ZOFR[facility]) 4 4-18 tablet by [facility] of mg tablet 00:00: mouth [place] 00 every 8 Medical (eight) Branch hours as needed for Nausea and Vomiting (N/V). pantoprazol 2020-0 Yes [id number] 40mg Take 1 [facility] e 4-18 tablet by [facility] of (PROTONIX) 00:00: mouth [place] 40 mg EC 00 daily. Medical tablet Branch dicyclomine 2020-0 Yes [id number] 20mg Take 1 [facility] 20 mg 4-18 tablet by [facility] of tablet 00:00: mouth [place] 00 every 6 Medical (six) Branch hours as needed for Abdominal pain. ondansetron 2020-0 Yes [id number] 4mg Take 1 [facility] (ZOFR[facility]) 4 4-18 tablet by [facility] of mg tablet 00:00: mouth [place] 00 every 8 Medical (eight) Branch hours as needed for Nausea and Vomiting (N/V). pantoprazol 2020-0 Yes [id number] 40mg Take 1 [facility] e 4-18 tablet by [facility] of (PROTONIX) 00:00: mouth [place] 40 mg EC 00 daily. Medical tablet Branch dicyclomine 2020-0 Yes [id number] 20mg Take 1 [facility] 20 mg 4-18 tablet by [facility] of tablet 00:00: mouth [place] 00 every 6 Medical (six) Branch hours as needed for Abdominal pain. ondansetron 2020-0 Yes [id number] 4mg Take 1 [facility] (ZOFR[facility]) 4 4-18 tablet by [facility] of mg tablet 00:00: mouth [place] 00 every 8 Medical (eight) Branch hours as needed for Nausea and Vomiting (N/V). ondansetron 2022- No [id number] 4mg Take 1 [facility] (ZOFRAN) 4 4-18 06-27 tablet by [facility] of mg tablet 00:00: 00:00 mouth [place] 00 :00 every 8 Medical (eight) Branch hours as [...] 00 DAILY UNTIL FINISHED. nystatin 2020-0 Yes [id number] Apply to [facility] 100,000 2-05 affected [facility] of unit/gram 00:00: area(s) 3 [facility] as ointment 00 (three) Medical times Branch daily. nystatin 2020-0 Yes [id number] Apply to [facility] 100,000 2-05 affected [facility] of unit/gram 00:00: area(s) 3 [facility] as ointment 00 (three) Medical times Branch daily. nystatin 2020-0 Yes [id number] Apply to [facility] 100,000 2-05 affected [facility] of unit/gram 00:00: area(s) 3 [facility] ointment 00 (three) Medical times Branch daily. nystatin 2020-0 Yes [id number] Apply to [facility] 100,000 2-05 affected [facility] of unit/gram 00:00: area(s) 3 [facility] as ointment 00 (three) Medical times Branch daily. nystatin 2020-0 Yes [id number] Apply to [facility] 100,000 2-05 affected [facility] of unit/gram 00:00: area(s) 3 [facility] as ointment 00 (three) Medical times Branch daily. nystatin 2020-0 Yes [id number] Apply to [facility] 100,000 2-05 affected [facility] of unit/gram 00:00: area(s) 3 [facility] as ointment 00 (three) Medical times Branch daily. nystatin 2020-0 Yes [id number] Apply to [facility] 100,000 2-05 affected [facility] of unit/gram 00:00: area(s) 3 [facility] as ointment 00 (three) Medical times Branch daily. nystatin 2020-0 Yes [id number] Apply to [facility] 100,000 2-05 affected [facility] of unit/gram 00:00: area(s) 3 [facility] as ointment 00 (three) Medical times Branch daily. nystatin 2020-0 Yes [id number] Apply to [facility] 100,000 2-05 affected [facility] of unit/gram 00:00: area(s) 3 [facility] as ointment 00 (three) Medical times Branch daily. nystatin 2020-0 Yes [id number] Apply to [facility] 100,000 2-05 affected [facility] of unit/gram 00:00: area(s) 3 [facility] as ointment 00 (three) Medical times Branch daily. nystatin 2020-0 Yes [id number] Apply to [facility] 100,000 2-05 affected [facility] of unit/gram 00:00: area(s) 3 [facility] as ointment 00 (three) Medical times Branch daily. nystatin 2020-0 Yes [id number] Apply to [facility] 100,000 2-05 affected [facility] of unit/gram 00:00: area(s) 3 [facility] as ointment 00 (three) Medical times Branch daily. nystatin 2020-0 Yes [id number] Apply to [facility] 100,000 2-05 affected [facility] of unit/gram 00:00: area(s) 3 [facility] as ointment 00 (three) Medical times Branch daily. nystatin 2020-0 Yes [id number] Apply to [facility] 100,000 2-05 affected [facility] of unit/gram 00:00: area(s) 3 [facility] as ointment 00 (three) Medical times Branch daily. nystatin 2020-0 Yes [id number] Apply to [facility] 100,000 2-05 affected [facility] of unit/gram 00:00: area(s) 3 [facility] as ointment 00 (three) Medical times Branch daily. nystatin 2020-0 Yes [id number] Apply to [facility] 100,000 2-05 affected [facility] of unit/gram 00:00: area(s) 3 [facility] as ointment 00 (three) Medical times Branch daily. nystatin 2020-0 Yes [id number] Apply to [facility] 100,000 2-05 affected [facility] of unit/gram 00:00: area(s) 3 [facility] as ointment 00 (three) Medical times Branch daily. nystatin 2020-0 Yes [id number] Apply to [facility] 100,000 2-05 affected [facility] of unit/gram 00:00: area(s) 3 [facility] as ointment 00 (three) Medical times Branch daily. nystatin 2020-0 Yes [id number] Apply to [facility] 100,000 2-05 affected [facility] of unit/gram 00:00: area(s) 3 [facility] as ointment 00 (three) Medical times Branch daily. nystatin 2020-0 Yes [id number] Apply to [facility] 100,000 2-05 affected [facility] of unit/gram 00:00: area(s) 3 [facility] as ointment 00 (three) Medical times Branch daily. nystatin 2020-0 Yes [id number] Apply to [facility] 100,000 2-05 affected [facility] of unit/gram 00:00: area(s) 3 [facility] as ointment 00 (three) Medical times Branch daily. nystatin 2020-0 Yes [id number] Apply to [facility] 100,000 2-05 affected [facility] of unit/gram 00:00: area(s) 3 [facility] as ointment 00 (three) Medical times Branch daily. nystatin 2020-0 Yes [id number] Apply to [facility] 100,000 2-05 affected [facility] of unit/gram 00:00: area(s) 3 [facility] as ointment 00 (three) Medical times Branch daily. nystatin 2020-0 Yes [id number] Apply to [facility] 100,000 2-05 affected ity of unit/gram 00:00: area(s) 3 [facility] ointment 00 (three) Medical times Branch daily. nystatin 2020-0 Yes [id number] Apply to [facility] 100,000 2-05 affected ity of unit/gram 00:00: area(s) 3 [facility] ointment 00 (three) Medical times Branch daily. nystatin 2020-0 Yes [id number] Apply to [facility] 100,000 2-05 affected ity of unit/gram 00:00: area(s) 3 [facility] ointment 00 (three) Medical times Branch daily. nystatin 2020-0 Yes [id number] Apply to [facility] 100,000 2-05 affected ity of unit/gram 00:00: area(s) 3 [facility] ointment 00 (three) Medical times Branch daily. nystatin 2020-0 Yes [id number] Apply to [facility] 100,000 2-05 affected ity of unit/gram 00:00: area(s) 3 [facility] ointment 00 (three) Medical times Branch daily. nystatin 2020-0 Yes [id number] Apply to [facility] 100,000 2-05 affected ity of unit/gram 00:00: area(s) 3 [facility] ointment 00 (three) Medical times Branch daily. nystatin 2020-0 Yes [id number] Apply to [facility] 100,000 2-05 affected ity of unit/gram 00:00: area(s) 3 [facility] ointment 00 (three) Medical times Branch daily. nystatin 2020-0 Yes [id number] Apply to [facility] 100,000 2-05 affected ity of unit/gram 00:00: area(s) 3 [facility] ointment 00 (three) Medical times Branch daily. nystatin 2020-0 Yes [id number] Apply to [facility] 100,000 2-05 affected ity of unit/gram 00:00: area(s) 3 [facility] ointment 00 (three) Medical times Branch daily. nystatin 2020-0 Yes [id number] Apply to [facility] 100,000 2-05 affected ity of unit/gram 00:00: area(s) 3 [facility] ointment 00 (three) Medical times Branch daily. nystatin 2020-0 Yes [id number] Apply to [facility] 100,000 2-05 affected ity of unit/gram 00:00: area(s) 3 [facility] ointment 00 (three) Medical times Branch daily. nystatin 2020-0 Yes [id number] Apply to [facility] 100,000 2-05 affected ity of unit/gram 00:00: area(s) 3 [facility] ointment 00 (three) Medical times Branch daily. nystatin 2020-0 Yes [id number] Apply to [facility] 100,000 2-05 affected ity of unit/gram 00:00: area(s) 3 [facility] ointment 00 (three) Medical times Branch daily. nystatin 2020-0 Yes [id number] Apply to [facility] 100,000 2-05 affected ity of unit/gram 00:00: area(s) 3 [facility] ointment 00 (three) Medical times Branch daily. nystatin 2020-0 Yes [id number] Apply to [facility] 100,000 2-05 affected ity of unit/gram 00:00: area(s) 3 [facility] ointment 00 (three) Medical times Branch daily. nystatin 2020-0 Yes [id number] Apply to [facility] 100,000 2-05 affected ity of unit/gram 00:00: area(s) 3 [facility] ointment 00 (three) Medical times Branch daily. nystatin 2020-0 Yes [id number] Apply to [facility] 100,000 2-05 affected ity of unit/gram 00:00: area(s) 3 [facility] ointment 00 (three) Medical times Branch daily. nystatin 2020-0 Yes [id number] Apply to [facility] 100,000 2-05 affected ity of unit/gram 00:00: area(s) 3 [facility] ointment 00 (three) Medical times Branch daily. nystatin 2020-0 Yes [id number] Apply to [facility] 100,000 2-05 affected ity of unit/gram 00:00: area(s) 3 [facility] ointment 00 (three) Medical times Branch daily. nystatin 2020-0 Yes [id number] Apply to [facility] 100,000 2-05 affected ity of unit/gram 00:00: area(s) 3 [facility] ointment 00 (three) Medical times [facility] daily. nystatin 2020-0 Yes [id number] Apply to [facility] 100,000 2-05 affected ity of unit/gram 00:00: area(s) 3 [facility] ointment 00 (three) Medical times Branch daily. nystatin 2020-0 Yes [id number] Apply to [facility] 100,000 2-05 affected ity of unit/gram 00:00: area(s) 3 [facility] ointment 00 (three) Medical times Branch daily. nystatin 2020-0 Yes [id number] Apply to [facility] 100,000 2-05 affected ity of unit/gram 00:00: area(s) 3 [facility] ointment 00 (three) Medical times Branch daily. nystatin 2020-0 Yes [id number] Apply to [facility] 100,000 2-05 affected ity of unit/gram 00:00: area(s) 3 [facility] ointment 00 (three) Medical times Branch daily. nystatin 2020-0 Yes [id number] Apply to [facility] 100,000 2-05 affected ity of unit/gram 00:00: area(s) 3 [facility] ointment 00 (three) Medical times Branch daily. nystatin 2020-0 Yes [id number] Apply to [facility] 100,000 2-05 affected ity [...] Tablet Tablet 00 DIRECTED. medroxyPROG 2019-0 Yes [id number] 150mg [facility] ESTERone 5-14 ity of (DEPO-PROVE 18:30: [place] [facility]) 00 Medical injection [facility] 150 mg medroxyPROG 2019-0 Yes [id number] 150mg [facility] ESTERone 5-14 ity of (DEPO-PROVE 18:30: [place] [facility]) 00 Medical injection [facility] 150 mg medroxyPROG 2019-0 Yes [id number] 150mg [facility] ESTERone 5-14 ity of (DEPO-PROVE 18:30: [place] [facility]) 00 Medical injection [facility] 150 mg medroxyPROG 2019-0 Yes [id number] 150mg [facility] ESTERone 5-14 ity of (DEPO-PROVE 18:30: [place] [facility]) 00 Medical injection [facility] 150 mg medroxyPROG 2019-0 Yes [id number] 150mg [facility] ESTERone 5-14 ity of (DEPO-PROVE 18:30: [place] [facility]) 00 Medical injection [facility] 150 mg medroxyPROG 2019-0 Yes [id number] 150mg [facility] ESTERone 5-14 ity of (DEPO-PROVE 18:30: [place] [facility]) 00 Medical injection [facility] 150 mg medroxyPROG 2019-0 Yes [id number] 150mg [facility] ESTERone 5-14 ity of (DEPO-PROVE 18:30: [place] [facility]) 00 Medical injection [facility] 150 mg medroxyPROG 2019-0 Yes [id number] 150mg [facility] ESTERone 5-14 ity of (DEPO-PROVE 18:30: [place] [facility]) 00 Medical injection [facility] 150 mg medroxyPROG 2019-0 Yes [id number] 150mg [facility] ESTERone 5-14 ity of (DEPO-PROVE 18:30: [place] [facility]) 00 Medical injection [facility] 150 mg medroxyPROG 2019-0 Yes [id number] 150mg [facility] ESTERone 5-14 ity of (DEPO-PROVE 18:30: [place] [facility]) 00 Medical injection [facility] 150 mg medroxyPROG 2019-0 Yes [id number] 150mg [facility] ESTERone 5-14 ity of (DEPO-PROVE 18:30: [place] [facility]) 00 Medical injection [facility] 150 mg medroxyPROG 2019-0 Yes [id number] 150mg [facility] ESTERone 5-14 ity of (DEPO-PROVE 18:30: [place] [facility]) 00 Medical injection [facility] 150 mg medroxyPROG 2019-0 Yes [id number] 150mg [facility] ESTERone 5-14 ity of (DEPO-PROVE 18:30: [place] [facility]) 00 Medical injection [facility] 150 mg medroxyPROG 2019-0 Yes [id number] 150mg [facility] ESTERone 5-14 ity of (DEPO-PROVE 18:30: [place] [facility]) 00 Medical injection [facility] 150 mg medroxyPROG 2019-0 Yes [id number] 150mg [facility] ESTERone 5-14 ity of (DEPO-PROVE 18:30: [place] [facility]) 00 Medical injection [facility] 150 mg medroxyPROG 2019-0 Yes [id number] 150mg [facility] ESTERone 5-14 ity of (DEPO-PROVE 18:30: [place] [facility]) 00 Medical injection [facility] 150 mg medroxyPROG 2019-0 Yes [id number] 150mg [facility] ESTERone 5-14 ity of (DEPO-PROVE 18:30: [place] [facility]) 00 Medical injection [facility] 150 mg medroxyPROG 2019-0 Yes [id number] 150mg [facility] ESTERone 5-14 ity of (DEPO-PROVE 18:30: [place] [facility]) 00 Medical injection [facility] 150 mg medroxyPROG 2019-0 Yes [id number] 150mg [facility] ESTERone 5-14 ity of (DEPO-PROVE 18:30: [place] [facility]) 00 Medical injection [facility] 150 mg medroxyPROG 2019-0 Yes [id number] 150mg [facility] ESTERone 5-14 ity of (DEPO-PROVE 18:30: [place] [facility]) 00 Medical injection [facility] 150 mg medroxyPROG 2019-0 Yes [id number] 150mg [facility] ESTERone 5-14 ity of (DEPO-PROVE 18:30: [place] [facility]) 00 Medical injection [facility] 150 mg medroxyPROG 2019-0 Yes [id number] 150mg [facility] ESTERone 5-14 ity of (DEPO-PROVE 18:30: [place] [facility]) 00 Medical injection [facility] 150 mg medroxyPROG 2019-0 Yes [id number] 150mg [facility] ESTERone 5-14 ity of (DEPO-PROVE 18:30: [place] [facility]) 00 Medical injection [facility] 150 mg medroxyPROG 2019-0 Yes [id number] 150mg [facility] ESTERone 5-14 ity of (DEPO-PROVE 18:30: [place] [facility]) 00 Medical injection [facility] 150 mg medroxyPROG 2019-0 Yes [id number] 150mg [facility] ESTERone 5-14 ity of (DEPO-PROVE 18:30: [place] [facility]) 00 Medical injection [facility] 150 mg medroxyPROG 2019-0 Yes [id number] 150mg [facility] ESTERone 5-14 ity of (DEPO-PROVE 18:30: [place] [facility]) 00 Medical injection [facility] 150 mg medroxyPROG 2019-0 Yes [id number] 150mg [facility] ESTERone 5-14 ity of (DEPO-PROVE 18:30: [place] [facility]) 00 Medical injection [facility] 150 mg medroxyPROG 2019-0 Yes [id number] 150mg [facility] ESTERone 5-14 ity of (DEPO-PROVE 18:30: [place] [facility]) 00 Medical injection [facility] 150 mg medroxyPROG 2019-0 Yes [id number] 150mg [facility] ESTERone 5-14 ity of (DEPO-PROVE 18:30: [place] [facility]) 00 Medical injection [facility] 150 mg medroxyPROG 2019-0 Yes [id number] 150mg [facility] ESTERone 5-14 ity of (DEPO-PROVE 18:30: [place] [facility]) 00 Medical injection [facility] 150 mg medroxyPROG 2019-0 Yes [id number] 150mg [facility] ESTERone 5-14 ity of (DEPO-PROVE 18:30: [place] [facility]) 00 Medical injection Branch 150 mg medroxyPROG 2019-0 Yes [id number] 150mg [facility] ESTERone 5-14 ity of (DEPO-PROVE 18:30: [place] [facility]) 00 Medical injection Branch 150 mg medroxyPROG 2019-0 Yes [id number] 150mg [facility] ESTERone 5-14 ity of (DEPO-PROVE 18:30: [place] [facility]) 00 Medical injection Branch 150 mg medroxyPROG 2019-0 Yes [id number] 150mg [facility] ESTERone 5-14 ity of (DEPO-PROVE 18:30: [place] [facility]) 00 Medical injection Branch 150 mg medroxyPROG 2019-0 Yes [id number] 150mg [facility] ESTERone 5-14 ity of (DEPO-PROVE 18:30: [place] [facility]) 00 Medical injection Branch 150 mg medroxyPROG 2019-0 Yes [id number] 150mg [facility] ESTERone 5-14 ity of (DEPO-PROVE 18:30: [place] [facility]) 00 Medical injection Branch 150 mg medroxyPROG 2019-0 Yes [id number] 150mg [facility] ESTERone 5-14 ity of (DEPO-PROVE 18:30: [place] [facility]) 00 Medical injection Branch 150 mg medroxyPROG 2019-0 Yes [id number] 150mg [facility] ESTERone 5-14 ity of (DEPO-PROVE 18:30: [place] [facility]) 00 Medical injection Branch 150 mg medroxyPROG 2019-0 Yes [id number] 150mg [facility] ESTERone 5-14 ity of (DEPO-PROVE 18:30: [place] [facility]) 00 Medical injection Branch 150 mg medroxyPROG 2019-0 Yes [id number] 150mg [facility] ESTERone 5-14 ity of (DEPO-PROVE 18:30: [place] [facility]) 00 Medical injection Branch 150 mg medroxyPROG 2019-0 Yes [id number] 150mg [facility] ESTERone 5-14 ity of (DEPO-PROVE 18:30: [place] [facility]) 00 Medical injection Branch 150 mg medroxyPROG 2019-0 Yes [id number] 150mg [facility] ESTERone 5-14 ity of (DEPO-PROVE 18:30: [place] [facility]) 00 Medical injection Branch 150 mg medroxyPROG 2019-0 Yes [id number] 150mg [facility] ESTERone 5-14 ity of (DEPO-PROVE 18:30: [place] [facility]) 00 Medical injection Branch 150 mg medroxyPROG 2019-0 Yes [id number] 150mg [facility] ESTERone 5-14 ity of (DEPO-PROVE 18:30: [place] [facility]) 00 Medical injection Branch 150 mg medroxyPROG 2019-0 Yes [id number] 150mg [facility] ESTERone 5-14 ity of (DEPO-PROVE 18:30: [place] [facility]) 00 Medical injection Branch 150 mg medroxyPROG 2019-0 Yes [id number] 150mg [facility] ESTERone 5-14 ity of (DEPO-PROVE 18:30: [place] [facility]) 00 Medical injection Branch 150 mg medroxyPROG 2019-0 Yes [id number] 150mg [facility] ESTERone 5-14 ity of (DEPO-PROVE 18:30: [place] [facility]) 00 Medical injection Branch 150 mg medroxyPROG 2019-0 Yes [id number] 150mg [facility] ESTERone 5-14 ity of (DEPO-PROVE 18:30: [place] [facility]) 00 Medical injection Branch 150 mg medroxyPROG 2019-0 Yes [id number] 150mg [facility] ESTERone 5-14 ity of (DEPO-PROVE 18:30: [facility]) 00 Medical injection Branch 150 mg Keppra 500 Keppra 500 2019-0 Yes M.D. U T MG Oral MG Oral 1-02 [facility] Tablet Tablet 00:00: ans 00 Immunizations Ordered Immunization Filled Immunization Date Status Commen ts Source Name Name SARS-COV-2 COVID-19 2021-08-06 Completed Unive rsity of PFIZER VACCINE 00:00:00 [facility] SARS-COV-2 COVID-19 2021-08-06 Completed Unive rsity of PFIZER VACCINE 00:00:00 [facility] SARS-COV-2 COVID-19 2021-08-06 Completed Unive rsity of PFIZER VACCINE 00:00:00 [facility] SARS-COV-2 COVID-19 2021-08-06 Completed Unive rsity of PFIZER VACCINE 00:00:00 [facility] SARS-COV-2 COVID-19 2021-08-06 Completed Unive rsity of PFIZER VACCINE 00:00:00 [facility] SARS-COV-2 COVID-19 2021-08-06 Completed Unive rsity of PFIZER VACCINE 00:00:00 [facility] SARS-COV-2 COVID-19 2021-08-06 Completed Unive rsity of PFIZER VACCINE 00:00:00 [facility] SARS-COV-2 COVID-19 2021-08-06 Completed Unive rsity of PFIZER VACCINE 00:00:00 [facility] SARS-COV-2 COVID-19 2021-08-06 Completed Unive rsity of PFIZER VACCINE 00:00:00 [facility] SARS-COV-2 COVID-19 2021-08-06 Completed Unive rsity of PFIZER VACCINE 00:00:00 [facility] SARS-COV-2 COVID-19 2021-08-06 Completed Unive rsity of PFIZER VACCINE 00:00:00 [facility] SARS-COV-2 COVID-19 2021-08-06 Completed Unive rsity of PFIZER VACCINE 00:00:00 [facility] SARS-COV-2 COVID-19 2021-08-06 Completed Unive rsity of PFIZER VACCINE 00:00:00 [facility] SARS-COV-2 COVID-19 2021-08-06 Completed Unive rsity of PFIZER VACCINE 00:00:00 [facility] SARS-COV-2 COVID-19 2021-08-06 Completed Unive rsity of PFIZER VACCINE 00:00:00 [facility] SARS-COV-2 COVID-19 2021-08-06 Completed Unive rsity of PFIZER VACCINE 00:00:00 [facility] SARS-COV-2 COVID-19 2021-08-06 Completed Unive rsity of PFIZER VACCINE 00:00:00 [facility] SARS-COV-2 COVID-19 2021-08-06 Completed Unive rsity of PFIZER VACCINE 00:00:00 [facility] SARS-COV-2 COVID-19 2021-08-06 Completed Unive rsity of PFIZER VACCINE 00:00:00 [facility] SARS-COV-2 COVID-19 2021-08-06 Completed Unive rsity of PFIZER VACCINE 00:00:00 [facility] SARS-COV-2 COVID-19 2021-08-06 Completed Unive rsity of PFIZER VACCINE 00:00:00 [facility] SARS-COV-2 COVID-19 2021-08-06 Completed Unive rsity of PFIZER VACCINE 00:00:00 [facility] SARS-COV-2 COVID-19 2021-08-06 Completed Unive rsity of PFIZER VACCINE 00:00:00 [facility] SARS-COV-2 COVID-19 2021-08-06 Completed Unive rsity of PFIZER VACCINE 00:00:00 [facility] SARS-COV-2 COVID-19 2021-08-06 Completed Unive rsity of PFIZER VACCINE 00:00:00 [facility] SARS-COV-2 COVID-19 2021-08-06 Completed Unive rsity of PFIZER VACCINE 00:00:00 [facility] PFIZER COVID-19 MRNA 2021-08-06 Completed [facility] VACCINATION 00:00:00 [facility] PFIZER COVID-19 MRNA 2021-08-06 Completed [facility] od[facility] VACCINATION 00:00:00 [facility] PFIZER COVID-19 MRNA 2021-08-06 Completed [facility] odist VACCINATION 00:00:00 [facility] PFIZER COVID-19 MRNA 2021-08-06 Completed Meth odist VACCINATION 00:00:00 [facility] PFIZER COVID-19 MRNA 2021-08-06 Completed Meth odist VACCINATION 00:00:00 Hospital PFIZER COVID-19 MRNA 2021-08-06 Completed Meth odist VACCINATION 00:00:00 [facility] SARS-COV-2 COVID-19 2021-07-09 Completed Unive rsity of PFIZER VACCINE 00:00:00 [facility] Influenza Virus 2021-07-09 Completed Universit y of Vaccine Quad .5 mL IM 00:00:00 [facility] SARS-COV-2 COVID-19 2021-07-09 Completed Unive rsity of PFIZER VACCINE 00:00:00 [facility] Influenza Virus 2021-07-09 Completed Universit y of Vaccine Quad .5 mL IM 00:00:00 [facility] SARS-COV-2 COVID-19 2021-07-09 Completed Unive rsity of PFIZER VACCINE 00:00:00 [facility] Influenza Virus 2021-07-09 Completed Universit y of Vaccine Quad .5 mL IM 00:00:00 [facility] SARS-COV-2 COVID-19 2021-07-09 Completed Unive rsity of PFIZER VACCINE 00:00:00 [facility] Influenza Virus 2021-07-09 Completed Universit y of Vaccine Quad .5 mL IM 00:00:00 [facility] SARS-COV-2 COVID-19 2021-07-09 Completed Unive rsity of PFIZER VACCINE 00:00:00 [facility] Influenza Virus 2021-07-09 Completed Universit y of Vaccine Quad .5 mL IM 00:00:00 [facility] SARS-COV-2 COVID-19 2021-07-09 Completed Unive rsity of PFIZER VACCINE 00:00:00 [facility] Influenza Virus 2021-07-09 Completed Universit y of Vaccine Quad .5 mL IM 00:00:00 [facility] SARS-COV-2 COVID-19 2021-07-09 Completed Unive rsity of PFIZER VACCINE 00:00:00 [facility] Influenza Virus 2021-07-09 Completed Universit y of Vaccine Quad .5 mL IM 00:00:00 [facility] SARS-COV-2 COVID-19 2021-07-09 Completed Unive rsity of PFIZER VACCINE 00:00:00 [facility] Influenza Virus 2021-07-09 Completed Universit y of Vaccine Quad .5 mL IM 00:00:00 [facility] SARS-COV-2 COVID-19 2021-07-09 Completed Unive rsity of PFIZER VACCINE 00:00:00 [facility] Influenza Virus 2021-07-09 Completed Universit y of Vaccine Quad .5 mL IM 00:00:00 [facility] SARS-COV-2 COVID-19 2021-07-09 Completed Unive rsity of PFIZER VACCINE 00:00:00 [facility] Influenza Virus 2021-07-09 Completed Universit y of Vaccine Quad .5 mL IM 00:00:00 [facility] SARS-COV-2 COVID-19 2021-07-09 Completed Unive rsity of PFIZER VACCINE 00:00:00 [facility] Influenza Virus 2021-07-09 Completed Universit y of Vaccine Quad .5 mL IM 00:00:00 [facility] SARS-COV-2 COVID-19 2021-07-09 Completed Unive rsity of PFIZER VACCINE 00:00:00 [facility] Influenza Virus 2021-07-09 Completed Universit y of Vaccine Quad .5 mL IM 00:00:00 [facility] SARS-COV-2 COVID-19 2021-07-09 Completed Unive rsity of PFIZER VACCINE 00:00:00 [facility] Influenza Virus 2021-07-09 Completed Universit y of Vaccine Quad .5 mL IM 00:00:00 [facility] SARS-COV-2 COVID-19 2021-07-09 Completed Unive rsity of PFIZER VACCINE 00:00:00 [facility] Influenza Virus 2021-07-09 Completed Universit y of Vaccine Quad .5 mL IM 00:00:00 [facility] SARS-COV-2 COVID-19 2021-07-09 Completed Unive rsity of PFIZER VACCINE 00:00:00 [facility] Influenza Virus 2021-07-09 Completed Universit y of Vaccine Quad .5 mL IM 00:00:00 [facility] SARS-COV-2 COVID-19 2021-07-09 Completed Unive rsity of PFIZER VACCINE 00:00:00 [facility] Influenza Virus 2021-07-09 Completed Universit y of Vaccine Quad .5 mL IM 00:00:00 [facility] SARS-COV-2 COVID-19 2021-07-09 Completed Unive rsity of PFIZER VACCINE 00:00:00 [facility] Influenza Virus 2021-07-09 Completed Universit y of Vaccine Quad .5 mL IM 00:00:00 [facility] SARS-COV-2 COVID-19 2021-07-09 Completed Unive rsity of PFIZER VACCINE 00:00:00 [facility] Influenza Virus 2021-07-09 Completed [facility]it y of Vaccine Quad .5 mL IM 00:00:00 [facility] SARS-COV-2 COVID-19 2021-07-09 Completed Unive rsity of PFIZER VACCINE 00:00:00 [facility] Influenza Virus 2021-07-09 Completed Universit y of Vaccine Quad .5 mL IM 00:00:00 [facility] SARS-COV-2 COVID-19 2021-07-09 Completed Unive rsity of PFIZER VACCINE 00:00:00 [facility] Influenza Virus 2021-07-09 Completed Universit y of Vaccine Quad .5 mL IM 00:00:00 [facility] SARS-COV-2 COVID-19 2021-07-09 Completed Unive rsity of PFIZER VACCINE 00:00:00 [facility] Influenza Virus 2021-07-09 Completed [facility]it y of Vaccine Quad .5 mL IM 00:00:00 [facility] SARS-COV-2 COVID-19 2021-07-09 Completed Unive rsity of PFIZER VACCINE 00:00:00 [facility] Influenza Virus 2021-07-09 Completed Universit y of Vaccine Quad .5 mL IM 00:00:00 [facility] SARS-COV-2 COVID-19 2021-07-09 Completed Unive rsity of PFIZER VACCINE 00:00:00 [facility] Influenza Virus 2021-07-09 Completed [facility]it y of Vaccine Quad .5 mL IM 00:00:00 [facility] SARS-COV-2 COVID-19 2021-07-09 Completed Unive rsity of PFIZER VACCINE 00:00:00 [facility] Influenza Virus 2021-07-09 Completed [facility]it y of Vaccine Quad .5 mL IM 00:00:00 [facility] SARS-COV-2 COVID-19 2021-07-09 Completed Unive rsity of PFIZER VACCINE 00:00:00 [facility] Influenza Virus 2021-07-09 Completed [facility]it y of Vaccine Quad .5 mL IM 00:00:00 [facility] SARS-COV-2 COVID-19 2021-07-09 Completed Unive rsity of PFIZER VACCINE 00:00:00 [facility] Influenza Virus 2021-07-09 Completed [facility]it y of Vaccine Quad .5 mL IM 00:00:00 [facility] PFIZER COVID-19 MRNA 2021-07-09 Completed Meth odist VACCINATION 00:00:00 [facility] PFIZER COVID-19 MRNA 2021-07-09 Completed Meth odist VACCINATION 00:00:00 [facility] PFIZER COVID-19 MRNA 2021-07-09 Completed Meth odist VACCINATION 00:00:00 [facility] PFIZER COVID-19 MRNA 2021-07-09 Completed Meth odist VACCINATION 00:00:00 [facility] PFIZER COVID-19 MRNA 2021-07-09 Completed Meth odist VACCINATION 00:00:00 [facility] PFIZER COVID-19 MRNA 2021-07-09 Completed Meth odist VACCINATION 00:00:00 [facility] PFIZER COVID-19 MRNA 2021-07-09 Completed Meth odist VACCINATION 00:00:00 [facility] PFIZER COVID-19 MRNA 2021-07-09 Completed Meth odist VACCINATION 00:00:00 [facility] Tetanus/Diptheria 2016-08-11 Completed Univers ity of 00:00:00 [facility] Varicella 2016-08-11 Completed University of (varivax)(chicken 00:00:00 [place] [facility] pox) Branch Tetanus/Diptheria 2016-08-11 Completed Univers ity of 00:00:00 [facility] Varicella 2016-08-11 Completed University of (varivax)(chicken 00:00:00 [place] [facility] pox) [place] Tetanus/Diptheria 2016-08-11 Completed Univers ity of 00:00:00 [facility] Varicella 2016-08-11 Completed University of (varivax)(chicken 00:00:00 [place] [facility] pox) Branch Tetanus/Diptheria 2016-08-11 Completed Univers ity of 00:00:00 [facility] Varicella 2016-08-11 Completed University of (varivax)(chicken 00:00:00 [place] [facility] pox) [facility] Tetanus/Diptheria 2016-08-11 Completed Univers ity of 00:00:00 [facility] Varicella 2016-08-11 Completed University of (varivax)(chicken 00:00:00 [place] [facility] pox) [facility] Tetanus/Diptheria 2016-08-11 Completed Univers ity of 00:00:00 [facility] Varicella 2016-08-11 Completed University of (varivax)(chicken 00:00:00 [place] [facility] pox) Branch Tetanus/Diptheria 2016-08-11 Completed Univers ity of 00:00:00 [facility] Varicella 2016-08-11 Completed University of (varivax)(chicken 00:00:00 [place] [facility] pox) [facility] Tetanus/Diptheria 2016-08-11 Completed Univers ity of 00:00:00 [facility] Varicella 2016-08-11 Completed University of (varivax)(chicken 00:00:00 [place] [facility] pox) [facility] Tetanus/Diptheria 2016-08-11 Completed Univers ity of 00:00:00 [facility] Varicella 2016-08-11 Completed University of (varivax)(chicken 00:00:00 [place] [facility] pox) Branch Tetanus/Diptheria 2016-08-11 Completed Univers ity of 00:00:00 [facility] Varicella 2016-08-11 Completed University of (varivax)(chicken 00:00:00 [place] [facility] pox) Branch Tetanus/Diptheria 2016-08-11 Completed Univers ity of 00:00:00 [facility] Varicella 2016-08-11 Completed University of (varivax)(chicken 00:00:00 [place] [facility] pox) Branch Tetanus/Diptheria 2016-08-11 Completed Univers ity of 00:00:00 [facility] Varicella 2016-08-11 Completed [facility] of (varivax)(chicken 00:00:00 [place] [facility] pox) Branch Tetanus/Diptheria 2016-08-11 Completed Univers ity of 00:00:00 [facility] Varicella 2016-08-11 Completed University of (varivax)(chicken 00:00:00 [place] [facility] pox) Branch Tetanus/Diptheria 2016-08-11 Completed Univers ity of 00:00:00 [facility] Varicella 2016-08-11 Completed University of (varivax)(chicken 00:00:00 [place] [facility] pox) Branch Tetanus/Diptheria 2016-08-11 Completed Univers ity of 00:00:00 [facility] Varicella 2016-08-11 Completed University of (varivax)(chicken 00:00:00 [place] [facility] pox) Branch Tetanus/Diptheria 2016-08-11 Completed Univers ity of 00:00:00 [facility] Varicella 2016-08-11 Completed [facility] of (varivax)(chicken 00:00:00 [place] [facility] pox) Branch Tetanus/Diptheria 2016-08-11 Completed Univers ity of 00:00:00 [facility] Varicella 2016-08-11 Completed [facility] (varivax)(chicken 00:00:00 [place] [facility] Tetanus/Diptheria 2016-08-11 Completed [facility] 00:00:00 [facility] Varicella 2016-08-11 Completed [facility] (varivax)(chicken 00:00:00 [place] [facility] Tetanus/Diptheria 2016-08-11 Completed [facility] 00:00:00 [facility] Varicella 2016-08-11 Completed [facility] (varivax)(chicken 00:00:00 [facility] Tetanus/Diptheria 2016-08-11 Completed [facility] 00:00:00 [facility] Varicella 2016-08-11 Completed [facility] (varivax)(chicken 00:00:00 [place] [facility] Tetanus/Diptheria 2016-08-11 Completed [facility] 00:00:00 [facility] Varicella 2016-08-11 Completed [facility] (varivax)(chicken 00:00:00 [place] [facility] Tetanus/Diptheria 2016-08-11 Completed [facility] 00:00:00 [facility] Varicella 2016-08-11 Completed [facility] (varivax)(chicken 00:00:00 [place] [facility] Tetanus/Diptheria 2016-08-11 Completed [facility] 00:00:00 [facility] Varicella 2016-08-11 Completed [facility] (varivax)(chicken 00:00:00 [place] [facility] Tetanus/Diptheria 2016-08-11 Completed [facility] 00:00:00 [facility] Varicella 2016-08-11 Completed [facility] (varivax)(chicken 00:00:00 [place] [facility] Tetanus/Diptheria 2016-08-11 Completed [facility] 00:00:00 [facility] Varicella 2016-08-11 Completed [facility] (varivax)(chicken 00:00:00 [place] [facility] Tetanus/Diptheria 2016-08-11 Completed [facility] 00:00:00 [facility] Varicella 2016-08-11 Completed [facility] (varivax)(chicken 00:00:00 [...] HEPATITIS A 2008-09-27 Completed [facility] 00:00:00 [facility] HPV 2008-09-27 Completed [facility] 00:00:00 [facility] HEPATITIS A 2008-09-27 Completed [facility] 00:00:00 [facility] HPV 2008-09-27 Completed [facility] 00:00:00 [facility] HEPATITIS A 2008-09-27 Completed University [...] Branch HPV 2008-09-27 Completed [facility] 00:00:00 [facility] HEPATITIS A 2008-09-27 Completed [facility] 00:00:00 [facility] HPV 2008-09-27 Completed [facility] 00:00:00 [facility] HEPATITIS A 2008-09-27 Completed [facility] 00:00:00 [facility] HPV 2008-09-27 Completed [facility] 00:00:00 [facility] HEPATITIS A 2008-09-27 Completed [facility] 00:00:00 [facility] HPV 2008-09-27 Completed [facility] 00:00:00 [facility] HEPATITIS A 2008-09-27 Completed [facility] 00:00:00 [facility] HPV 2008-09-27 Completed [facility] 00:00:00 [facility] HEPATITIS A 2008-09-27 Completed [facility] 00:00:00 [facility] HPV 2008-09-27 Completed [facility] 00:00:00 [facility] HEPATITIS A 2008-09-27 Completed University [...] Branch HPV 2008-03-06 Completed [facility] 00:00:00 [facility] HEPATITIS A 2008-03-06 Completed [facility] 00:00:00 [facility] HPV 2008-03-06 Completed [facility] 00:00:00 [facility] HEPATITIS A 2008-03-06 Completed [facility] 00:00:00 [facility] HPV 2008-03-06 Completed [facility] 00:00:00 [facility] HEPATITIS A 2008-03-06 Completed [facility] 00:00:00 [facility] HPV 2008-03-06 Completed [facility] 00:00:00 [facility] HEPATITIS A 2008-03-06 Completed [facility] 00:00:00 [facility] HPV 2008-03-06 Completed [facility] 00:00:00 [facility] HEPATITIS A 2008-03-06 Completed University [...] HEPATITIS A 2008-03-06 Completed [facility] 00:00:00 [facility] HPV 2008-03-06 Completed [facility] 00:00:00 [facility] HEPATITIS A 2008-03-06 Completed [facility] 00:00:00 [facility] HPV 2008-03-06 Completed [facility] 00:00:00 [facility] HEPATITIS A 2008-03-06 Completed [facility] 00:00:00 [facility] HPV 2008-03-06 Completed [facility] 00:00:00 [facility] HEPATITIS A 2008-03-06 Completed [facility] 00:00:00 [facility] HPV 2008-03-06 Completed [facility] 00:00:00 [facility] HEPATITIS A 2008-03-06 Completed [facility] 00:00:00 [facility] HPV 2008-03-06 Completed [facility] 00:00:00 [facility] HEPATITIS A 2008-03-06 Completed [facility] 00:00:00 [facility] HPV 2008-03-06 Completed [facility] 00:00:00 [facility] Meningococcal 2007-12-29 Completed [facility] Polysaccharide 00:00:00 [place] [facility] (groups A, C, Y and Branc h W-135) conjugate vaccine (MCV4P) TDAP 2007-12-29 Completed [facility] 00:00:00 [facility] Meningococcal 2007-12-29 Completed [facility] Polysaccharide 00:00:00 [place] [facility] (groups A, C, Y and Branc h W-135) conjugate vaccine (MCV4P) TDAP 2007-12-29 Completed [facility] 00:00:00 [facility] Meningococcal 2007-12-29 Completed [facility] Polysaccharide 00:00:00 [place] [facility] (groups A, C, Y and Branc h W-135) conjugate vaccine (MCV4P) TDAP 2007-12-29 Completed [facility] 00:00:00 [facility] Meningococcal 2007-12-29 Completed [facility] Polysaccharide 00:00:00 [place] [facility] (groups A, C, Y and Branc h W-135) conjugate vaccine (MCV4P) TDAP 2007-12-29 Completed [facility] 00:00:00 [facility] Meningococcal 2007-12-29 Completed [facility] Polysaccharide 00:00:00 [place] [facility] (groups A, C, Y and Branc h W-135) conjugate vaccine (MCV4P) TDAP 2007-12-29 Completed [facility] 00:00:00 [facility] Meningococcal 2007-12-29 Completed [facility] Polysaccharide 00:00:00 [place] [facility] (groups A, C, Y and Branc h W-135) conjugate vaccine (MCV4P) TDAP 2007-12-29 Completed [facility] 00:00:00 [facility] Meningococcal 2007-12-29 Completed [facility] Polysaccharide 00:00:00 [place] [facility] (groups A, C, Y and Branc h W-135) conjugate vaccine (MCV4P) TDAP 2007-12-29 Completed [facility] 00:00:00 [facility] Meningococcal 2007-12-29 Completed [facility] Polysaccharide 00:00:00 [place] [facility] (groups A, C, Y and Branc h W-135) conjugate vaccine (MCV4P) TDAP 2007-12-29 Completed [facility] 00:00:00 [facility] Meningococcal 2007-12-29 Completed [facility] Polysaccharide 00:00:00 [place] [facility] (groups A, C, Y and Branc h W-135) conjugate vaccine (MCV4P) TDAP 2007-12-29 Completed [facility] 00:00:00 [facility] Meningococcal 2007-12-29 Completed [facility] Polysaccharide 00:00:00 [place] [facility] (groups A, C, Y and Branc h W-135) conjugate vaccine (MCV4P) TDAP 2007-12-29 Completed [facility] 00:00:00 [facility] Meningococcal 2007-12-29 Completed [facility] Polysaccharide 00:00:00 [place] [facility] (groups A, C, Y and Branc h W-135) conjugate vaccine (MCV4P) TDAP 2007-12-29 Completed [facility] 00:00:00 [facility] Meningococcal 2007-12-29 Completed [facility] Polysaccharide 00:00:00 [place] [facility] (groups A, C, Y and Branc h W-135) conjugate vaccine (MCV4P) TDAP 2007-12-29 Completed [facility] 00:00:00 [facility] Meningococcal 2007-12-29 Completed [facility] Polysaccharide 00:00:00 [place] [facility] (groups A, C, Y and Branc h W-135) conjugate vaccine (MCV4P) TDAP 2007-12-29 Completed [facility] 00:00:00 [facility] Meningococcal 2007-12-29 Completed [facility] Polysaccharide 00:00:00 [place] [facility] (groups A, C, Y and Branc h W-135) conjugate vaccine (MCV4P) TDAP 2007-12-29 Completed [facility] 00:00:00 [facility] Meningococcal 2007-12-29 Completed [facility] Polysaccharide 00:00:00 [place] [facility] (groups A, C, Y and Branc h W-135) conjugate vaccine (MCV4P) TDAP 2007-12-29 Completed [facility] 00:00:00 [facility] Meningococcal 2007-12-29 Completed [facility] Polysaccharide 00:00:00 [place] [facility] (groups A, C, Y and Branc h W-135) conjugate vaccine (MCV4P) TDAP 2007-12-29 Completed [facility] 00:00:00 [facility] Meningococcal 2007-12-29 Completed [facility] Polysaccharide 00:00:00 [place] [facility] (groups A, C, Y and Branc h W-135) conjugate vaccine (MCV4P) TDAP 2007-12-29 Completed [facility] 00:00:00 [facility] Meningococcal 2007-12-29 Completed [facility] Polysaccharide 00:00:00 [place] [facility] (groups A, C, Y and Branc h W-135) conjugate vaccine (MCV4P) TDAP 2007-12-29 Completed [facility] 00:00:00 [facility] Meningococcal 2007-12-29 Completed [facility] Polysaccharide 00:00:00 [place] [facility] (groups A, C, Y and Branc h W-135) conjugate vaccine (MCV4P) TDAP 2007-12-29 Completed [facility] 00:00:00 [facility] Meningococcal 2007-12-29 Completed [facility] Polysaccharide 00:00:00 [place] [facility] (groups A, C, Y and Branc h W-135) conjugate vaccine (MCV4P) TDAP 2007-12-29 Completed [facility] 00:00:00 [facility] Meningococcal 2007-12-29 Completed [facility] Polysaccharide 00:00:00 [place] [facility] (groups A, C, Y and Branc h W-135) conjugate vaccine (MCV4P) TDAP 2007-12-29 Completed [facility] 00:00:00 [facility] Meningococcal 2007-12-29 Completed [facility] Polysaccharide 00:00:00 [place] [facility] (groups A, C, Y and Branc h W-135) conjugate vaccine (MCV4P) TDAP 2007-12-29 Completed [facility] 00:00:00 [facility] Meningococcal 2007-12-29 Completed [facility] Polysaccharide 00:00:00 [place] [facility] (groups A, C, Y and Branc h W-135) conjugate vaccine (MCV4P) TDAP 2007-12-29 Completed [facility] 00:00:00 [facility] Meningococcal 2007-12-29 Completed [facility] of Polysaccharide 00:00:00 [facility] shanice (groups A, C, Y and Branc h W-135) conjugate vaccine (MCV4P) TDAP 2007-12-29 Completed [facility] 00:00:00 [facility] Meningococcal 2007-12-29 Completed [facility] of Polysaccharide 00:00:00 [facility] shanice (groups A, C, Y and Branc h W-135) conjugate vaccine (MCV4P) TDAP 2007-12-29 Completed [facility] 00:00:00 [facility] Meningococcal 2007-12-29 Completed [facility] of Polysaccharide 00:00:00 [facility] shanice (groups A, C, Y and Branc h W-135) conjugate vaccine (MCV4P) TDAP 2007-12-29 Completed [facility] 00:00:00 [facility] DTaP, Unspecified 1998-01-03 Completed Univers [facility] Formulation 00:00:00 [facility] Hep B, Adol or Pedi 1998-01-03 Completed Unive rsity of Dosage 00:00:00 [facility] Poliovirus, Live, 1998-01-03 Completed Univers [facility] of Oral, Trivalent 00:00:00 [facility] DTaP, Unspecified 1998-01-03 Completed Univers ity of Formulation 00:00:00 [facility] Hep B, Adol or Pedi 1998-01-03 Completed Unive rsity of Dosage 00:00:00 [facility] Poliovirus, Live, 1998-01-03 Completed Univers [facility] of Oral, Trivalent 00:00:00 [facility] DTaP, Unspecified 1998-01-03 Completed [facility] of Formulation 00:00:00 [facility] Hep B, Adol or Pedi 1998-01-03 Completed Unive rsity of Dosage 00:00:00 [facility] Poliovirus, Live, 1998-01-03 Completed [facility] of Oral, Trivalent 00:00:00 [facility] DTaP, Unspecified 1998-01-03 Completed [facility] ity of Formulation 00:00:00 [facility] Hep B, Adol or Pedi 1998-01-03 Completed Unive rsity of Dosage 00:00:00 [facility] Poliovirus, Live, 1998-01-03 Completed [facility] Oral, Trivalent 00:00:00 [facility] DTaP, Unspecified 1998-01-03 Completed Univers ity of Formulation 00:00:00 [facility] Hep B, Adol or Pedi 1998-01-03 Completed Unive rsity of Dosage 00:00:00 [facility] Poliovirus, Live, 1998-01-03 Completed Univers [facility] of Oral, Trivalent 00:00:00 [facility] DTaP, Unspecified 1998-01-03 Completed Univers ity of Formulation 00:00:00 [facility] Hep B, Adol or Pedi 1998-01-03 Completed Unive rsity of Dosage 00:00:00 [facility] Poliovirus, Live, 1998-01-03 Completed Univers [facility] of Oral, Trivalent 00:00:00 [facility] DTaP, Unspecified 1998-01-03 Completed [facility] ity of Formulation 00:00:00 [facility] Hep B, Adol or Pedi 1998-01-03 Completed Unive rsity of Dosage 00:00:00 [facility] Poliovirus, Live, 1998-01-03 Completed Univers [facility] of Oral, Trivalent 00:00:00 [facility] DTaP, Unspecified 1998-01-03 Completed [facility] ity of Formulation 00:00:00 [facility] Hep B, Adol or Pedi 1998-01-03 Completed Unive rsity of Dosage 00:00:00 [facility] Poliovirus, Live, 1998-01-03 Completed Univers [facility] of Oral, Trivalent 00:00:00 [facility] DTaP, Unspecified 1998-01-03 Completed [facility] of Formulation 00:00:00 [facility] Hep B, Adol or Pedi 1998-01-03 Completed Unive rsity of Dosage 00:00:00 [facility] Poliovirus, Live, 1998-01-03 Completed [facility] of Oral, Trivalent 00:00:00 [facility] DTaP, Unspecified 1998-01-03 Completed [facility] ity of Formulation 00:00:00 [facility] Hep B, Adol or Pedi 1998-01-03 Completed Unive rsity of Dosage 00:00:00 [facility] Poliovirus, Live, 1998-01-03 Completed Univers [facility] of Oral, Trivalent 00:00:00 [facility] DTaP, Unspecified 1998-01-03 Completed [facility] it[facility] of Formulation 00:00:00 [facility] Hep B, Adol or Pedi 1998-01-03 Completed Unive rsity of Dosage 00:00:00 [facility] Poliovirus, Live, 1998-01-03 Completed [facility] of Oral, Trivalent 00:00:00 [facility] DTaP, Unspecified 1998-01-03 Completed [facility] of Formulation 00:00:00 [facility] Hep B, Adol or Pedi 1998-01-03 Completed Unive rsity of Dosage 00:00:00 [facility] Poliovirus, Live, 1998-01-03 Completed [facility] of Oral, Trivalent 00:00:00 [facility] DTaP, Unspecified 1998-01-03 Completed [facility] of Formulation 00:00:00 [facility] Hep B, Adol or Pedi 1998-01-03 Completed Unive rsity of Dosage 00:00:00 [facility] Poliovirus, Live, 1998-01-03 Completed [facility] of Oral, Trivalent 00:00:00 [facility] DTaP, Unspecified 1998-01-03 Completed [facility] of Formulation 00:00:00 [facility] Hep B, Adol or Pedi 1998-01-03 Completed Unive rsity of Dosage 00:00:00 [facility] Poliovirus, Live, 1998-01-03 Completed [facility] of Oral, Trivalent 00:00:00 [facility] DTaP, Unspecified 1998-01-03 Completed [facility] of Formulation 00:00:00 [facility] Hep B, Adol or Pedi 1998-01-03 Completed Unive rsity of Dosage 00:00:00 [facility] Poliovirus, Live, 1998-01-03 Completed [facility] of Oral, Trivalent 00:00:00 [facility] DTaP, Unspecified 1998-01-03 Completed [facility] of Formulation 00:00:00 [facility] Hep B, Adol or Pedi 1998-01-03 Completed Unive rsity of Dosage 00:00:00 [facility] Poliovirus, Live, 1998-01-03 Completed Univers [facility] of Oral, Trivalent 00:00:00 [facility] DTaP, Unspecified 1998-01-03 Completed [facility] of Formulation 00:00:00 [facility] Hep B, Adol or Pedi 1998-01-03 Completed Unive rsity of Dosage 00:00:00 [facility] Poliovirus, Live, 1998-01-03 Completed Univers [facility] of Oral, Trivalent 00:00:00 [facility] DTaP, Unspecified 1998-01-03 Completed [facility] ity of Formulation 00:00:00 [facility] Hep B, Adol or Pedi 1998-01-03 Completed Unive rsity of Dosage 00:00:00 [facility] Poliovirus, Live, 1998-01-03 Completed Univers [facility] of Oral, Trivalent 00:00:00 [facility] DTaP, Unspecified 1998-01-03 Completed [facility]y of Formulation 00:00:00 [facility] Hep B, Adol or Pedi 1998-01-03 Completed Unive rsity of Dosage 00:00:00 [facility] Poliovirus, Live, 1998-01-03 Completed [facility] of Oral, Trivalent 00:00:00 [facility] DTaP, Unspecified 1998-01-03 Completed [facility]y of Formulation 00:00:00 [facility] Hep B, Adol or Pedi 1998-01-03 Completed Unive rsity of Dosage 00:00:00 [facility] Poliovirus, Live, 1998-01-03 Completed Univers [facility] of Oral, Trivalent 00:00:00 [facility] DTaP, Unspecified 1998-01-03 Completed [facility]y of Formulation 00:00:00 [facility] Hep B, Adol or Pedi 1998-01-03 Completed Unive rsity of Dosage 00:00:00 [facility] Poliovirus, Live, 1998-01-03 Completed Univers [facility] of Oral, Trivalent 00:00:00 [facility] DTaP, Unspecified 1998-01-03 Completed [facility] ity of Formulation 00:00:00 [facility] Hep B, Adol or Pedi 1998-01-03 Completed Unive rsity of Dosage 00:00:00 [facility] Poliovirus, Live, 1998-01-03 Completed [facility] Oral, Trivalent 00:00:00 [facility] DTaP, Unspecified 1998-01-03 Completed [facility] of Formulation 00:00:00 [facility] Hep B, Adol or Pedi 1998-01-03 Completed Unive rsity of Dosage 00:00:00 [facility] Poliovirus, Live, 1998-01-03 Completed Univers [facility] of Oral, Trivalent 00:00:00 [facility] DTaP, Unspecified 1998-01-03 Completed [facility]y of Formulation 00:00:00 [facility] Hep B, Adol or Pedi 1998-01-03 Completed Unive rsity of Dosage 00:00:00 [facility] Poliovirus, Live, 1998-01-03 Completed Univers [facility] of Oral, Trivalent 00:00:00 [facility] DTaP, Unspecified 1998-01-03 Completed [facility]y of Formulation 00:00:00 [facility] Hep B, Adol or Pedi 1998-01-03 Completed Unive rsity of Dosage 00:00:00 [facility] Poliovirus, Live, 1998-01-03 Completed Univers [facility] of Oral, Trivalent 00:00:00 [facility] DTaP, Unspecified 1998-01-03 Completed [facility] of Formulation 00:00:00 [facility] Hep B, Adol or Pedi 1998-01-03 Completed Unive rsity of Dosage 00:00:00 [facility] Poliovirus, Live, 1998-01-03 Completed Univers [facility]y of Oral, Trivalent 00:00:00 [facility] Hep B, Unspecified 1997-03-28 Completed Univer sity of Formulation 00:00:00 [facility] Hep B, Adol or Pedi 1997-03-28 Completed Unive rsity of Dosage 00:00:00 [facility] MMR 1997-03-28 Completed [facility] 00:00:00 [facility] Hep B, Unspecified 1997-03-28 Completed Univer sity of Formulation 00:00:00 [facility] Hep B, Adol or Pedi 1997-03-28 Completed Unive rsity of Dosage 00:00:00 [facility] MMR 1997-03-28 Completed [facility] 00:00:00 [facility] Hep B, Unspecified 1997-03-28 Completed Univer sity of Formulation 00:00:00 [facility] Hep B, Adol or Pedi 1997-03-28 Completed Unive rsity of Dosage 00:00:00 [facility] MMR 1997-03-28 Completed [facility] 00:00:00 [facility] Hep B, Unspecified 1997-03-28 Completed Univer sity of Formulation 00:00:00 [facility] Hep B, Adol or Pedi 1997-03-28 Completed Unive rsity of Dosage 00:00:00 [facility] MMR 1997-03-28 Completed [facility] 00:00:00 [facility] Hep B, Unspecified 1997-03-28 Completed Univer sity of Formulation 00:00:00 [facility] Hep B, Adol or Pedi 1997-03-28 Completed Unive rsity of Dosage 00:00:00 [facility] MMR 1997-03-28 Completed [facility] 00:00:00 [facility] Hep B, Unspecified 1997-03-28 Completed Univer sity of Formulation 00:00:00 [facility] Hep B, Adol or Pedi 1997-03-28 Completed Unive rsity of Dosage 00:00:00 [facility] MMR 1997-03-28 Completed [facility] 00:00:00 [facility] Hep B, Unspecified 1997-03-28 Completed Univer sity of Formulation 00:00:00 [facility] Hep B, Adol or Pedi 1997-03-28 Completed Unive rsity of Dosage 00:00:00 [facility] MMR 1997-03-28 Completed [facility] 00:00:00 [facility] Hep B, Unspecified 1997-03-28 Completed Univer sity of Formulation 00:00:00 [facility] Hep B, Adol or Pedi 1997-03-28 Completed Unive rsity of Dosage 00:00:00 [facility] MMR 1997-03-28 Completed [facility] 00:00:00 [facility] Hep B, Unspecified 1997-03-28 Completed Univer sity of Formulation 00:00:00 [facility] Hep B, Adol or Pedi 1997-03-28 Completed Unive rsity of Dosage 00:00:00 [facility] MMR 1997-03-28 Completed [facility] [...] 1997-03-28 Completed [facility]ive rs[facility] of Dosage 00:00:00 [facility] MMR 1997-03-28 Completed [facility] 00:00:00 [facility] Hep B, Unspecified 1997-03-28 Completed Univer sity of Formulation 00:00:00 [facility] Hep B, Adol or Pedi 1997-03-28 Completed Unive rsity of Dosage 00:00:00 [facility] MMR 1997-03-28 Completed [facility] 00:00:00 [facility] Hep B, Unspecified 1997-03-28 Completed Univer sity of Formulation 00:00:00 [facility] Hep B, Adol or Pedi 1997-03-28 Completed Unive rsity of Dosage 00:00:00 [facility] MMR 1997-03-28 Completed [facility] 00:00:00 [facility] Hep B, Unspecified 1997-03-28 Completed Univer sity of Formulation 00:00:00 [facility] Hep B, Adol or Pedi 1997-03-28 Completed Unive rsity of Dosage 00:00:00 [facility] MMR 1997-03-28 Completed [facility] 00:00:00 [facility] Hep B, Unspecified 1997-03-28 Completed Univer [facility]ity of Formulation 00:00:00 [facility] Hep B, Adol or Pedi 1997-03-28 Completed Unive rsity of Dosage 00:00:00 [facility] MMR 1997-03-28 Completed [facility] 00:00:00 [facility] Hep B, Unspecified 1997-03-28 Completed Univer sity of Formulation 00:00:00 [facility] Hep B, Adol or Pedi 1997-03-28 Completed Unive rsity of Dosage 00:00:00 [facility] MMR 1997-03-28 Completed [facility] 00:00:00 [facility] Hep B, Unspecified 1997-03-28 Completed Univer [facility]ity of Formulation 00:00:00 [facility] Hep B, Adol or Pedi 1997-03-28 Completed Unive rsity of Dosage 00:00:00 [facility] MMR 1997-03-28 Completed [facility] 00:00:00 [facility] Hep B, Unspecified 1997-03-28 Completed Univer [facility]ity of Formulation 00:00:00 [facility] Hep B, Adol or Pedi 1997-03-28 Completed [facility]ive rs[facility] of Dosage 00:00:00 [facility] MMR 1997-03-28 Completed [facility] 00:00:00 [facility] [facility] Hep B, Unspecified 1997-03-28 Completed [facility] Formulation 00:00:00 [facility] Hep B, Adol or Pedi 1997-03-28 Completed [facility] of Dosage 00:00:00 [facility] MMR 1997-03-28 Completed [facility] 00:00:00 [facility] Hep B, Unspecified 1997-03-28 Completed [facility] Formulation 00:00:00 [facility] Hep B, Adol or Pedi 1997-03-28 Completed [facility] rs[facility] of Dosage 00:00:00 [facility] MMR 1997-03-28 Completed [facility] 00:00:00 [facility] Hep B, Unspecified 1997-03-28 Completed [facility] Formulation 00:00:00 [facility] Hep B, Adol or Pedi 1997-03-28 Completed [facility] rs[facility] of Dosage 00:00:00 [facility] MMR 1997-03-28 Completed [facility] 00:00:00 [facility] Hep B, Unspecified 1997-03-28 Completed [facility] Formulation 00:00:00 [facility] Hep B, Adol or Pedi 1997-03-28 Completed [facility]ive rs[facility] of Dosage 00:00:00 [facility] MMR 1997-03-28 Completed [facility] 00:00:00 [facility] Hep B, Unspecified 1997-03-28 Completed [facility] Formulation 00:00:00 [facility] Hep B, Adol or Pedi 1997-03-28 Completed [facility] rs[facility] of Dosage 00:00:00 [facility] MMR 1997-03-28 Completed [facility] 00:00:00 [facility] Hep B, Unspecified 1997-03-28 Completed [facility] Formulation 00:00:00 [facility] Hep B, Adol or Pedi 1997-03-28 Completed [facility] rs[facility] of Dosage 00:00:00 [facility] MMR 1997-03-28 Completed [facility] 00:00:00 [facility] Hep B, Unspecified 1997-03-28 Completed [facility] Formulation 00:00:00 [facility] Hep B, Adol or Pedi 1997-03-28 Completed [facility] rs[facility] of Dosage 00:00:00 [facility] MMR 1997-03-28 Completed [facility] 00:00:00 [facility] Hep B, Unspecified 1997-03-28 Completed [facility] Formulation 00:00:00 [facility] Hep B, Adol or Pedi 1997-03-28 Completed [facility] Dosage 00:00:00 [facility] 1997-03-28 Completed [facility] 00:00:00 [facility] 1994-05-19 Completed [facility] 00:00:00 [facility] Hib-HbOC 1994-05-19 Completed University of 00:00:00 [facility] 1994-05-19 Completed University of 00:00:00 [facility] Poliovirus, Live, 1994-05-19 Completed Univers ity of Oral, Trivalent 00:00:00 [facility] 1994-05-19 Completed University of 00:00:00 [facility] Hib-HbOC 1994-05-19 Completed University of 00:00:00 [facility] 1994-05-19 Completed University of 00:00:00 [facility] Poliovirus, Live, 1994-05-19 Completed Univers ity of Oral, Trivalent 00:00:00 [facility] 1994-05-19 Completed University of 00:00:00 [facility] Hib-HbOC 1994-05-19 Completed University of 00:00:00 [facility] 1994-05-19 Completed University of 00:00:00 [facility] Poliovirus, Live, 1994-05-19 Completed Univers ity of Oral, Trivalent 00:00:00 [facility] 1994-05-19 Completed University of 00:00:00 [facility] Hib-HbOC 1994-05-19 Completed [facility] of 00:00:00 [facility] 1994-05-19 Completed [facility] of 00:00:00 [facility] Poliovirus, Live, 1994-05-19 Completed Univers ity of Oral, Trivalent 00:00:00 [facility] 1994-05-19 Completed University of 00:00:00 [facility] Hib-HbOC 1994-05-19 Completed University of 00:00:00 [facility] 1994-05-19 Completed University of 00:00:00 [facility] Poliovirus, Live, 1994-05-19 Completed Univers ity of Oral, Trivalent 00:00:00 [facility] 1994-05-19 Completed University of 00:00:00 [facility] Hib-HbOC 1994-05-19 Completed University of 00:00:00 [facility] 1994-05-19 Completed University of 00:00:00 [facility] Poliovirus, Live, 1994-05-19 Completed Univers ity of Oral, Trivalent 00:00:00 [facility] 1994-05-19 Completed [facility] of 00:00:00 [facility] Hib-HbOC 1994-05-19 Completed University of 00:00:00 [facility] 1994-05-19 Completed University of 00:00:00 [facility] Poliovirus, Live, 1994-05-19 Completed Univers ity of Oral, Trivalent 00:00:00 [facility] 1994-05-19 Completed University of 00:00:00 [facility] Hib-HbOC 1994-05-19 Completed University of 00:00:00 [facility] 1994-05-19 Completed University of 00:00:00 [facility] Poliovirus, Live, 1994-05-19 Completed Univers ity of Oral, Trivalent 00:00:00 [facility] 1994-05-19 Completed University of 00:00:00 [facility] Hib-HbOC 1994-05-19 Completed University of 00:00:00 [facility] 1994-05-19 Completed University of 00:00:00 [facility] Poliovirus, Live, 1994-05-19 Completed Univers ity of Oral, Trivalent 00:00:00 [facility] 1994-05-19 Completed University of 00:00:00 [facility] Hib-HbOC 1994-05-19 Completed [facility] of 00:00:00 [facility] 1994-05-19 Completed University of 00:00:00 [facility] Poliovirus, Live, 1994-05-19 Completed Univers ity of Oral, Trivalent 00:00:00 [facility] 1994-05-19 Completed [facility] of 00:00:00 [facility] Hib-HbOC 1994-05-19 Completed [facility] of 00:00:00 [facility] MMR 1994-05-19 Completed [facility] of 00:00:00 [facility] Poliovirus, Live, 1994-05-19 Completed Univers ity of Oral, Trivalent 00:00:00 [facility] 1994-05-19 Completed University of 00:00:00 [facility] Hib-HbOC 1994-05-19 Completed University of 00:00:00 [facility] MMR 1994-05-19 Completed University of 00:00:00 [facility] Poliovirus, Live, 1994-05-19 Completed Univers ity of Oral, Trivalent 00:00:00 [facility] 1994-05-19 Completed University of 00:00:00 [facility] Hib-HbOC 1994-05-19 Completed University of 00:00:00 [facility] 1994-05-19 Completed University of 00:00:00 [facility] Poliovirus, Live, 1994-05-19 Completed Univers ity of Oral, Trivalent 00:00:00 [facility] 1994-05-19 Completed University of 00:00:00 [facility] Hib-HbOC 1994-05-19 Completed University of 00:00:00 [facility] 1994-05-19 Completed University of 00:00:00 [facility] Poliovirus, Live, 1994-05-19 Completed Univers ity of Oral, Trivalent 00:00:00 [facility] 1994-05-19 Completed University of 00:00:00 [facility] Hib-HbOC 1994-05-19 Completed University of 00:00:00 [facility] MMR 1994-05-19 Completed [facility] of 00:00:00 [facility] Poliovirus, Live, 1994-05-19 Completed Univers ity of Oral, Trivalent 00:00:00 [facility] 1994-05-19 Completed University of 00:00:00 [facility] Hib-HbOC 1994-05-19 Completed [facility] of 00:00:00 [facility] MMR 1994-05-19 Completed [facility] of 00:00:00 [facility] Poliovirus, Live, 1994-05-19 Completed Univers ity of Oral, Trivalent 00:00:00 [facility] 1994-05-19 Completed [facility] of 00:00:00 [facility] Hib-HbOC 1994-05-19 Completed University of 00:00:00 [facility] MMR 1994-05-19 Completed [facility] of 00:00:00 [facility] Poliovirus, Live, 1994-05-19 Completed Univers ity of Oral, Trivalent 00:00:00 [facility] 1994-05-19 Completed University of 00:00:00 [facility] Hib-HbOC 1994-05-19 Completed [facility] of 00:00:00 [facility] MMR 1994-05-19 Completed [facility] of 00:00:00 [facility] Poliovirus, Live, 1994-05-19 Completed Univers ity of Oral, Trivalent 00:00:00 [facility] 1994-05-19 Completed University of 00:00:00 [facility] Hib-HbOC 1994-05-19 Completed University of 00:00:00 [facility] 1994-05-19 Completed University of 00:00:00 [facility] Poliovirus, Live, 1994-05-19 Completed Univers ity of Oral, Trivalent 00:00:00 [facility] 1994-05-19 Completed University of 00:00:00 [facility] Hib-HbOC 1994-05-19 Completed University of 00:00:00 [facility] 1994-05-19 Completed University of 00:00:00 [facility] Poliovirus, Live, 1994-05-19 Completed Univers ity of Oral, Trivalent 00:00:00 [facility] 1994-05-19 Completed University of 00:00:00 [facility] Hib-HbOC 1994-05-19 Completed University of 00:00:00 [facility] MMR 1994-05-19 Completed [facility] of 00:00:00 [facility] Poliovirus, Live, 1994-05-19 Completed Univers ity of Oral, Trivalent 00:00:00 [facility] 1994-05-19 Completed University of 00:00:00 [facility] Hib-HbOC 1994-05-19 Completed [facility] of 00:00:00 [facility] MMR 1994-05-19 Completed [facility] of 00:00:00 [facility] Poliovirus, Live, 1994-05-19 Completed Univers ity of Oral, Trivalent 00:00:00 [facility] 1994-05-19 Completed [facility] of 00:00:00 [facility] Hib-HbOC 1994-05-19 Completed [facility] of 00:00:00 [facility] MMR 1994-05-19 Completed University of 00:00:00 [facility] Poliovirus, Live, 1994-05-19 Completed Univers ity of Oral, Trivalent 00:00:00 [facility] 1994-05-19 Completed [facility] of 00:00:00 [facility] Hib-HbOC 1994-05-19 Completed [facility] of 00:00:00 [facility] MMR 1994-05-19 Completed [facility] of 00:00:00 [facility] Poliovirus, Live, 1994-05-19 Completed Univers ity of Oral, Trivalent 00:00:00 [facility] 1994-05-19 Completed [facility] of 00:00:00 [facility] Hib-HbOC 1994-05-19 Completed University of 00:00:00 [facility] MMR 1994-05-19 Completed [facility] of 00:00:00 [facility] Poliovirus, Live, 1994-05-19 Completed Univers ity of Oral, Trivalent 00:00:00 [facility] 1994-05-19 Completed [facility] of 00:00:00 [facility] Hib-HbOC 1994-05-19 Completed University of 00:00:00 [facility] MMR 1994-05-19 Completed [facility] of 00:00:00 [facility] Poliovirus, Live, 1994-05-19 Completed Univers ity of Oral, Trivalent 00:00:00 [facility] Heamophilus Influenza 1994-05-09 Completed Uni versity of B 00:00:00 [facility] Heamophilus Influenza 1994-05-09 Completed Uni versity of B 00:00:00 [facility] Heamophilus Influenza 1994-05-09 Completed Uni versity of B 00:00:00 [facility] Heamophilus Influenza 1994-05-09 Completed Uni versity of B 00:00:00 [facility] Heamophilus Influenza 1994-05-09 Completed Uni versity of B 00:00:00 [facility] Heamophilus Influenza 1994-05-09 Completed Uni versity of B 00:00:00 [facility] Heamophilus Influenza 1994-05-09 Completed Uni versity of B 00:00:00 [facility] Heamophilus Influenza 1994-05-09 Completed Uni versity of B 00:00:00 [facility] Heamophilus Influenza 1994-05-09 Completed Uni versity of B 00:00:00 [facility] Heamophilus Influenza 1994-05-09 Completed Uni versity of B 00:00:00 [facility] Heamophilus Influenza 1994-05-09 Completed Uni versity of B 00:00:00 [facility] Heamophilus Influenza 1994-05-09 Completed Uni versity of B 00:00:00 [facility] Heamophilus Influenza 1994-05-09 Completed Uni versity of B 00:00:00 [facility] Heamophilus Influenza 1994-05-09 Completed Uni versity of B 00:00:00 [facility] Heamophilus Influenza 1994-05-09 Completed Uni versity of B 00:00:00 [facility] Heamophilus Influenza 1994-05-09 Completed Uni versity of B 00:00:00 [facility] Heamophilus Influenza 1994-05-09 Completed Uni versity of B 00:00:00 [facility] Heamophilus Influenza 1994-05-09 Completed Uni versity of B 00:00:00 [facility] Heamophilus Influenza 1994-05-09 Completed Uni versity of B 00:00:00 [facility] Heamophilus Influenza 1994-05-09 Completed Uni versity of B 00:00:00 [facility] Heamophilus Influenza 1994-05-09 Completed Uni versity of B 00:00:00 [facility] Heamophilus Influenza 1994-05-09 Completed Uni versity of B 00:00:00 [facility] Heamophilus Influenza 1994-05-09 Completed Uni versity of B 00:00:00 [facility] Heamophilus Influenza 1994-05-09 Completed Uni versity of B 00:00:00 [facility] Heamophilus Influenza 1994-05-09 Completed Uni vers[facility] of B 00:00:00 [facility] Heamophilus Influenza 1994-05-09 Completed Uni versity of B 00:00:00 [facility] Hep B, Unspecified 1993-04-29 Completed [facility] of Formulation 00:00:00 [facility] Hep B, Adol or Pedi 1993-04-29 Completed Unive rsity of Dosage 00:00:00 [facility] Hep B, Unspecified 1993-04-29 Completed Univer [...] 1993-04-29 Completed [facility] of Formulation 00:00:00 [facility] Hep B, Adol or Pedi 1993-04-29 Completed Unive rsity of Dosage 00:00:00 [facility] Hep B, Unspecified 1993-04-29 Completed [facility]iver [facility]ity of Formulation 00:00:00 [facility] Hep B, Adol or Pedi 1993-04-29 Completed Unive rsity of Dosage 00:00:00 [facility] Hep B, Unspecified 1993-04-29 Completed Un[facility]ity of Formulation 00:00:00 [facility] Hep B, Adol or Pedi 1993-04-29 Completed Unive rsity of Dosage 00:00:00 [facility] Hep B, Unspecified 1993-04-29 Completed [facility] of Formulation 00:00:00 [facility] Hep B, Adol or Pedi 1993-04-29 Completed Unive rsity of Dosage 00:00:00 [facility] Hep B, Unspecified 1993-04-29 Completed [facility] of Formulation 00:00:00 [facility] Hep B, Adol or Pedi 1993-04-29 Completed Unive rsity of Dosage 00:00:00 [facility] Hep B, Unspecified 1993-04-29 Completed [facility] of Formulation 00:00:00 [facility] Hep B, Adol or Pedi 1993-04-29 Completed [facility]ive rs[facility] of Dosage 00:00:00 [facility] DTP 1992 Completed [facility] of 00:00:00 [facility] Heamophilus Influenza 1992 Completed Uni versity of B 00:00:00 [facility] Hib-HbOC 1992 Completed University of 00:00:00 [facility] DTP 1992 Completed [facility] of 00:00:00 [facility] Heamophilus Influenza 1992 Completed Uni versity of B 00:00:00 [facility] Hib-HbOC 1992 Completed [facility] of 00:00:00 [facility] DTP 1992 Completed [facility] of 00:00:00 [facility] Heamophilus Influenza 1992 Completed Uni versity of B 00:00:00 [facility] Hib-HbOC 1992 Completed [facility] of 00:00:00 [facility] DTP 1992 Completed [facility] of 00:00:00 [facility] Heamophilus Influenza 1992 Completed Uni versity of B 00:00:00 [facility] Hib-HbOC 1992 Completed [facility] of 00:00:00 [facility] DTP 1992 Completed [facility] of 00:00:00 [facility] Heamophilus Influenza 1992 Completed Uni vers[facility] of B 00:00:00 [facility] Hib-HbOC 1992 Completed [facility] 00:00:00 [facility] DTP 1992 Completed [facility] of 00:00:00 [facility] Heamophilus Influenza 1992 Completed Uni vers[facility] of B 00:00:00 [facility] Hib-HbOC 1992 Completed [facility] of 00:00:00 [facility] DTP 1992 Completed [facility] of 00:00:00 [facility] Heamophilus Influenza 1992 Completed Uni vers[facility] of B 00:00:00 [facility] Hib-HbOC 1992 Completed [facility] of 00:00:00 [facility] DTP 1992 Completed [facility] of 00:00:00 [facility] Heamophilus Influenza 1992 Completed Uni versity of B 00:00:00 [facility] Hib-HbOC 1992 Completed [facility] of 00:00:00 [facility] DTP 1992 Completed [facility] of 00:00:00 [facility] Heamophilus Influenza 1992 Completed Uni vers[facility] of B 00:00:00 [facility] Hib-HbOC 1992 Completed [facility] of 00:00:00 [facility] DTP 1992 Completed [facility] of 00:00:00 [facility] Heamophilus Influenza 1992 Completed Uni versity of B 00:00:00 [facility] Hib-HbOC 1992 Completed [facility] of 00:00:00 [facility] DTP 1992 Completed [facility] of 00:00:00 [facility] Heamophilus Influenza 1992 Completed Uni vers[facility] of B 00:00:00 [facility] Hib-HbOC 1992 Completed [facility] of 00:00:00 [facility] DTP 1992 Completed [facility] 00:00:00 [facility] Heamophilus Influenza 1992 Completed Uni vers[facility] of B 00:00:00 [facility] Hib-HbOC 1992 Completed [facility] 00:00:00 [facility] DTP 1992 Completed [facility] 00:00:00 [facility] Heamophilus Influenza 1992 Completed Uni vers[facility] of B 00:00:00 [facility] Hib-HbOC 1992 Completed [facility] of 00:00:00 [facility] DTP 1992 Completed [facility] 00:00:00 [facility] Heamophilus Influenza 1992 Completed Uni vers[facility] of B 00:00:00 [facility] Hib-HbOC 1992 Completed [facility] 00:00:00 [facility] DTP 1992 Completed [facility] 00:00:00 [facility] Heamophilus Influenza 1992 Completed [facility] vers[facility] of B 00:00:00 [facility] Hib-HbOC 1992 Completed [facility] of 00:00:00 [facility] DTP 1992 Completed [facility] 00:00:00 [facility] Heamophilus Influenza 1992 Completed [facility] vers[facility] of B 00:00:00 [facility] Hib-HbOC 1992 Completed [facility] of 00:00:00 [facility] DTP 1992 Completed [facility] 00:00:00 [facility] Heamophilus Influenza 1992 Completed [facility] vers[facility] of B 00:00:00 [facility] Hib-HbOC 1992 Completed [facility] of 00:00:00 [facility] DTP 1992 Completed [facility] 00:00:00 [facility] Heamophilus Influenza 1992 Completed [facility] vers[facility] of B 00:00:00 [facility] Hib-HbOC 1992 Completed [facility] 00:00:00 [facility] DTP 1992 Completed [facility] 00:00:00 [facility] Heamophilus Influenza 1992 Completed [facility] vers[facility] B 00:00:00 [facility] Hib-HbOC 1992 Completed [facility] 00:00:00 [facility] DTP 1992 Completed [facility] 00:00:00 [facility] Heamophilus Influenza 1992 Completed [facility] vers[facility] of B 00:00:00 [facility] Hib-HbOC 1992 Completed [facility] of 00:00:00 [facility] DTP 1992 Completed [facility] 00:00:00 [facility] Heamophilus Influenza 1992 Completed [facility] vers[facility] of B 00:00:00 [facility] Hib-HbOC 1992 Completed [facility] of 00:00:00 [facility] DTP 1992 Completed [facility] of 00:00:00 [facility] Heamophilus Influenza 1992 Completed [facility] vers[facility] of B 00:00:00 [facility] Hib-HbOC 1992 Completed [facility] 00:00:00 [facility] DTP 1992 Completed [facility] 00:00:00 [facility] Heamophilus Influenza 1992 Completed [facility] vers[facility] of B 00:00:00 [facility] Hib-HbOC 1992 Completed [facility] of 00:00:00 [facility] DTP 1992 Completed [facility] of 00:00:00 [facility] Heamophilus Influenza 1992 Completed [facility] vers[facility] of B 00:00:00 [facility] Hib-HbOC 1992 Completed [facility] of 00:00:00 [facility] DTP 1992 Completed [facility] 00:00:00 [facility] Heamophilus Influenza 1992 Completed [facility] vers[facility] of B 00:00:00 [facility] Hib-HbOC 1992 Completed [facility] 00:00:00 [facility] DTP 1992 Completed [facility] 00:00:00 [facility] Heamophilus Influenza 1992 Completed Uni vers[facility] of B 00:00:00 [facility] Hib-HbOC 1992 Completed [facility] of 00:00:00 [facility] DTP 1992 Completed [facility] of 00:00:00 [facility] Heamophilus Influenza 1992 Completed [facility] vers[facility] B 00:00:00 [facility] Hib-HbOC 1992 Completed [facility] 00:00:00 [facility] Poliovirus, Live, 1992 Completed Univers [facility]y of Oral, Trivalent 00:00:00 [facility] DTP 1992 Completed [facility] 00:00:00 [facility] Heamophilus Influenza 1992 Completed [facility] vers[facility] of B 00:00:00 [facility] Hib-HbOC 1992 Completed [facility] 00:00:00 [facility] Poliovirus, Live, 1992 Completed [facility] of Oral, Trivalent 00:00:00 [facility] 1992 Completed [facility] 00:00:00 [facility] Heamophilus Influenza 1992 Completed [facility] vers[facility] B 00:00:00 [facility] Hib-HbOC 1992 Completed [facility] 00:00:00 [facility] Poliovirus, Live, 1992 Completed [facility] of Oral, Trivalent 00:00:00 [facility] 1992 Completed [facility] 00:00:00 [facility] Heamophilus Influenza 1992 Completed [facility] vers[facility] B 00:00:00 [facility] Hib-HbOC 1992 Completed [facility] 00:00:00 [facility] Poliovirus, Live, 1992 Completed [facility] of Oral, Trivalent 00:00:00 [facility] 1992 Completed [facility] 00:00:00 [facility] Heamophilus Influenza 1992 Completed [facility] B 00:00:00 [facility] Hib-HbOC 1992 Completed [facility] 00:00:00 [facility] [facility] Poliovirus, Live, 1992 Completed [facility] Oral, Trivalent 00:00:00 [facility] 1992 Completed [facility] 00:00:00 [facility] Heamophilus Influenza 1992 Completed Uni versity of B 00:00:00 [facility] Hib-HbOC 1992 Completed [facility] of 00:00:00 [facility] Poliovirus, Live, 1992 Completed [facility] Oral, Trivalent 00:00:00 [facility] 1992 Completed [facility] 00:00:00 [facility] Heamophilus Influenza 1992 Completed Uni versity of B 00:00:00 [facility] Hib-HbOC 1992 Completed [facility] of 00:00:00 [facility] Poliovirus, Live, 1992 Completed [facility] of Oral, Trivalent 00:00:00 [facility] 1992 Completed [facility] 00:00:00 [facility] Heamophilus Influenza 1992 Completed Uni versity of B 00:00:00 [facility] Hib-HbOC 1992 Completed [facility] of 00:00:00 [facility] Poliovirus, Live, 1992 Completed [facility] of Oral, Trivalent 00:00:00 [facility] DT 1992 Completed [facility] of 00:00:00 [facility] Heamophilus Influenza 1992 Completed Uni versity of B 00:00:00 [facility] Hib-HbOC 1992 Completed [facility] 00:00:00 [facility] Poliovirus, Live, 1992 Completed [facility] of Oral, Trivalent 00:00:00 [facility] 1992 Completed [facility] 00:00:00 [facility] Heamophilus Influenza 1992 Completed Uni versity of B 00:00:00 [facility] Hib-HbOC 1992 Completed [facility] of 00:00:00 [facility] Poliovirus, Live, 1992 Completed [facility] of Oral, Trivalent 00:00:00 [facility] 1992 Completed [facility] 00:00:00 [facility] Heamophilus Influenza 1992 Completed [facility] vers[facility] of B 00:00:00 [facility] Hib-HbOC 1992 Completed [facility] 00:00:00 [facility] Poliovirus, Live, 1992 Completed [facility] of Oral, Trivalent 00:00:00 [facility] 1992 Completed [facility] 00:00:00 [facility] Heamophilus Influenza 1992 Completed [facility] vers[facility] B 00:00:00 [facility] Hib-HbOC 1992 Completed [facility] 00:00:00 [facility] Poliovirus, Live, 1992 Completed [facility] Oral, Trivalent 00:00:00 [facility] 1992 Completed [facility] 00:00:00 [facility] Heamophilus Influenza 1992 Completed [facility] versity [facility] B 00:00:00 [facility] Hib-HbOC 1992 Completed [facility] 00:00:00 [facility] Poliovirus, Live, 1992 Completed [facility] Oral, Trivalent 00:00:00 [facility] 1992 Completed [facility] 00:00:00 [facility] Heamophilus Influenza 1992 Completed Uni versity of B 00:00:00 [facility] Hib-HbOC 1992 Completed [facility] of 00:00:00 [facility] Poliovirus, Live, 1992 Completed [facility] of Oral, Trivalent 00:00:00 [facility] 1992 Completed [facility] 00:00:00 [facility] Heamophilus Influenza 1992 Completed [facility] vers[facility] of B 00:00:00 [facility] Hib-HbOC 1992 Completed [facility] of 00:00:00 [facility] Poliovirus, Live, 1992 Completed [facility] of Oral, Trivalent 00:00:00 [facility] 1992 Completed [facility] 00:00:00 [facility] Heamophilus Influenza 1992 Completed [facility] vers[facility] B 00:00:00 [facility] Hib-HbOC 1992 Completed [facility] of 00:00:00 [facility] Poliovirus, Live, 1992 Completed [facility] of Oral, Trivalent 00:00:00 [facility] 1992 Completed [facility] 00:00:00 [facility] Heamophilus Influenza 1992 Completed [facility] vers[facility] B 00:00:00 [facility] Hib-HbOC 1992 Completed [facility] 00:00:00 [facility] Poliovirus, Live, 1992 Completed [facility] Oral, Trivalent 00:00:00 [facility] 1992 Completed [facility] 00:00:00 [facility] Heamophilus Influenza 1992 Completed [facility] versity of B 00:00:00 [facility] Hib-HbOC 1992 Completed [facility] of 00:00:00 [facility] Poliovirus, Live, 1992 Completed [facility] of Oral, Trivalent 00:00:00 [facility] 1992 Completed [facility] of 00:00:00 [facility] Heamophilus Influenza 1992 Completed [facility] vers[facility] of B 00:00:00 [facility] Hib-HbOC 1992 Completed [facility] of 00:00:00 [facility] Poliovirus, Live, 1992 Completed [facility] of Oral, Trivalent 00:00:00 [facility] 1992 Completed [facility] of 00:00:00 [facility] Heamophilus Influenza 1992 Completed [facility] vers[facility] B 00:00:00 [facility] Hib-HbOC 1992 Completed [facility] of 00:00:00 [facility] Poliovirus, Live, 1992 Completed [facility] Oral, Trivalent 00:00:00 [facility] 1992 Completed [facility] of 00:00:00 [facility] Heamophilus Influenza 1992 Completed [facility] versity of B 00:00:00 [facility] Hib-HbOC 1992 Completed [facility] of 00:00:00 [facility] Poliovirus, Live, 1992 Completed [facility] Oral, Trivalent 00:00:00 [facility] 1992 Completed [facility] 00:00:00 [facility] Heamophilus Influenza 1992 Completed [facility] versity [facility] B 00:00:00 [facility] Hib-HbOC 1992 Completed [facility] of 00:00:00 [facility] Poliovirus, Live, 1992 Completed [facility] Oral, Trivalent 00:00:00 [facility] 1992 Completed [facility] 00:00:00 [facility] Heamophilus Influenza 1992 Completed [facility] vers[facility] B 00:00:00 [facility] Hib-HbOC 1992 Completed [facility] of 00:00:00 [facility] Poliovirus, Live, 1992 Completed [facility] Oral, Trivalent 00:00:00 [facility] 1992 Completed [facility] 00:00:00 [facility] Heamophilus Influenza 1992 Completed [facility] vers[facility] B 00:00:00 [facility] Hib-HbOC 1992 Completed [facility] of 00:00:00 [facility] Poliovirus, Live, 1992 Completed [facility] of Oral, Trivalent 00:00:00 [facility] DTP 1992 Completed [facility] of 00:00:00 [facility] Heamophilus Influenza 1992 Completed [facility] versity of B 00:00:00 [facility] Hib-HbOC 1992 Completed [facility] of 00:00:00 [facility] Poliovirus, Live, 1992 Completed [facility] Oral, Trivalent 00:00:00 [facility] DTP 1992 Completed [facility] of 00:00:00 [facility] Heamophilus Influenza 1992 Completed [facility] vers[facility] B 00:00:00 [facility] Hib-HbOC 1992 Completed [facility] of 00:00:00 [facility] Poliovirus, Live, 1992 Completed [facility] of Oral, Trivalent 00:00:00 [facility] DT 1992 Completed [facility] of 00:00:00 [facility] Heamophilus Influenza 1992 Completed [facility] vers[facility] of B 00:00:00 [facility] Hib-HbOC 1992 Completed [facility] of 00:00:00 [facility] Poliovirus, Live, 1992 Completed [facility] Oral, Trivalent 00:00:00 [facility] 1992 Completed [facility] 00:00:00 [facility] Heamophilus Influenza 1992 Completed [facility] vers[facility] of B 00:00:00 [facility] Hib-HbOC 1992 Completed [facility] of 00:00:00 [facility] Poliovirus, Live, 1992 Completed [facility] of Oral, Trivalent 00:00:00 [facility] DTP 1992 Completed [facility] of 00:00:00 [facility] Heamophilus Influenza 1992 Completed [facility] vers[facility] B 00:00:00 [facility] Hib-HbOC 1992 Completed [facility] of 00:00:00 [facility] Poliovirus, Live, 1992 Completed [facility] of Oral, Trivalent 00:00:00 [facility] DT 1992 Completed [facility] of 00:00:00 [facility] Heamophilus Influenza 1992 Completed [facility] vers[facility] B 00:00:00 [facility] Hib-HbOC 1992 Completed [facility] of 00:00:00 [facility] Poliovirus, Live, 1992 Completed [facility] Oral, Trivalent 00:00:00 [facility] 1992 Completed [facility] 00:00:00 [facility] Heamophilus Influenza 1992 Completed [facility] vers[facility] B 00:00:00 [facility] Hib-HbOC 1992 Completed [facility] of 00:00:00 [facility] Poliovirus, Live, 1992 Completed [facility] Oral, Trivalent 00:00:00 [facility] 1992 Completed [facility] 00:00:00 [facility] Heamophilus Influenza 1992 Completed [facility] vers[facility] B 00:00:00 [facility] Hib-HbOC 1992 Completed [facility] of 00:00:00 [facility] Poliovirus, Live, 1992 Completed [facility] of Oral, Trivalent 00:00:00 [facility] 1992 Completed [facility] of 00:00:00 [facility] Heamophilus Influenza 1992 Completed [facility] vers[facility] of B 00:00:00 [facility] Hib-HbOC 1992 Completed [facility] of 00:00:00 [facility] Poliovirus, Live, 1992 Completed [facility] Oral, Trivalent 00:00:00 [facility] 1992 Completed [facility] of 00:00:00 [facility] Heamophilus Influenza 1992 Completed [facility] vers[facility] B 00:00:00 [facility] Hib-HbOC 1992 Completed [facility] of 00:00:00 [facility] Poliovirus, Live, 1992 Completed [facility] of Oral, Trivalent 00:00:00 [facility] 1992 Completed [facility] of 00:00:00 [facility] Heamophilus Influenza 1992 Completed [facility] vers[facility] of B 00:00:00 [facility] Hib-HbOC 1992 Completed [facility] of 00:00:00 [facility] Poliovirus, Live, 1992 Completed [facility] of Oral, Trivalent 00:00:00 [facility] 1992 Completed [facility] 00:00:00 [facility] Heamophilus Influenza 1992 Completed [facility] vers[facility] B 00:00:00 [facility] Hib-HbOC 1992 Completed [facility] of 00:00:00 [facility] Poliovirus, Live, 1992 Completed [facility] it[facility] of Oral, Trivalent 00:00:00 [facility] 1992 Completed [facility] of 00:00:00 [facility] Heamophilus Influenza 1992 Completed [facility] vers[facility] of B 00:00:00 [facility] Hib-HbOC 1992 Completed [facility] of 00:00:00 [facility] Poliovirus, Live, 1992 Completed [facility] of Oral, Trivalent 00:00:00 [facility] 1992 Completed [facility] of 00:00:00 [facility] Heamophilus Influenza 1992 Completed [facility] vers[facility] B 00:00:00 [facility] Hib-HbOC 1992 Completed [facility] of 00:00:00 [facility] Poliovirus, Live, 1992 Completed [facility] of Oral, Trivalent 00:00:00 [facility] 1992 Completed [facility] of 00:00:00 [facility] Heamophilus Influenza 1992 Completed [facility] vers[facility] of B 00:00:00 [facility] Hib-HbOC 1992 Completed [facility] of 00:00:00 [facility] Poliovirus, Live, 1992 Completed [facility] of Oral, Trivalent 00:00:00 [facility] 1992 Completed [facility] 00:00:00 [facility] Heamophilus Influenza 1992 Completed [facility] vers[facility] B 00:00:00 [facility] Hib-HbOC 1992 Completed [facility] of 00:00:00 [facility] Poliovirus, Live, 1992 Completed [facility] of Oral, Trivalent 00:00:00 [facility] 1992 Completed [facility] of 00:00:00 [facility] Heamophilus Influenza 1992 Completed [facility] vers[facility] B 00:00:00 [facility] Hib-HbOC 1992 Completed [facility] of 00:00:00 [facility] Poliovirus, Live, 1992 Completed [facility] of Oral, Trivalent 00:00:00 [facility] 1992 Completed [facility] 00:00:00 [facility] Heamophilus Influenza 1992 Completed [facility] vers[facility] B 00:00:00 [facility] Hib-HbOC 1992 Completed [facility] of 00:00:00 [facility] Poliovirus, Live, 1992 Completed [facility] of Oral, Trivalent 00:00:00 [facility] 1992 Completed [facility] 00:00:00 [facility] Heamophilus Influenza 1992 Completed [facility] vers[facility] of B 00:00:00 [facility] Hib-HbOC 1992 Completed [facility] of 00:00:00 [facility] Poliovirus, Live, 1992 Completed [facility] of Oral, Trivalent 00:00:00 [facility] 1992 Completed [facility] of 00:00:00 [facility] Heamophilus Influenza 1992 Completed [facility] vers[facility] of B 00:00:00 [facility] Hib-HbOC 1992 Completed [facility] of 00:00:00 [facility] Poliovirus, Live, 1992 Completed [facility] of Oral, Trivalent 00:00:00 [facility] 1992 Completed [facility] of 00:00:00 [facility] Heamophilus Influenza 1992 Completed [facility] versity of B 00:00:00 [facility] Hib-HbOC 1992 Completed [facility] of 00:00:00 [facility] Poliovirus, Live, 1992 Completed [facility]y of Oral, Trivalent 00:00:00 [facility] DT 1992 Completed [facility] of 00:00:00 [facility] Heamophilus Influenza 1992 Completed [facility] vers[facility] of B 00:00:00 [facility] Hib-HbOC 1992 Completed [facility] 00:00:00 [facility] Poliovirus, Live, 1992 Completed [facility]y of Oral, Trivalent 00:00:00 [facility] DTP 1992 Completed [facility] of 00:00:00 [facility] Heamophilus Influenza 1992 Completed Uni versity of B 00:00:00 [facility] Hib-HbOC 1992 Completed [facility] of 00:00:00 [facility] Poliovirus, Live, 1992 Completed [facility]y of Oral, Trivalent 00:00:00 [facility] DTP 1992 Completed [facility] of 00:00:00 [facility] Heamophilus Influenza 1992 Completed [facility] versity of B 00:00:00 [facility] Hib-HbOC 1992 Completed [facility] of 00:00:00 [facility] Poliovirus, Live, 1992 Completed [facility] ity of Oral, Trivalent 00:00:00 [facility] DTP 1992 Completed University of 00:00:00 [facility] Heamophilus Influenza 1992 Completed [facility] versity of B 00:00:00 [facility] Hib-HbOC 1992 Completed [facility] of 00:00:00 [facility] Poliovirus, Live, 1992 Completed [facility] ity of Oral, Trivalent 00:00:00 [facility] DTP 1992 Completed [facility] of 00:00:00 [facility] Heamophilus Influenza 1992 Completed [facility] versity of B 00:00:00 [facility] Hib-HbOC 1992 Completed [facility] of 00:00:00 [facility] Poliovirus, Live, 1992 Completed Univers ity of Oral, Trivalent 00:00:00 [facility] DTP 1992 Completed [facility] of 00:00:00 [facility] Heamophilus Influenza 1992 Completed Uni versity of B 00:00:00 [facility] Hib-HbOC 1992 Completed [facility] of 00:00:00 [facility] Poliovirus, Live, 1992 Completed [facility] ity of Oral, Trivalent 00:00:00 [facility] DTP 1992 Completed [facility] of 00:00:00 [facility] Heamophilus Influenza 1992 Completed Uni versity of B 00:00:00 [facility] Hib-HbOC 1992 Completed [facility] of 00:00:00 [facility] Poliovirus, Live, 1992 Completed [facility]y of Oral, Trivalent 00:00:00 [facility] ical [place] Vital Signs Vital Name Observation Time Observation Value Comments Source Systolic blood 2023-03-02 133 mm[Hg] University of pressure 17:25:00 [facility] Diastolic blood 2023-03-02 79 mm[Hg] University o f pressure 17:25:00 [facility] Heart rate 2023-03-02 86 /min University of 17:25:00 [facility] Body temperature 2023-03-02 36.67 Alisha University of 17:25:00 [facility] Respiratory rate 2023-03-02 16 /min University of 17:25:00 [facility] Body height 2023-03-02 160 cm University of 17:25:00 [facility] Body weight 2023-03-02 69.627 kg University of 17:25:00 [facility] BMI 2023-03-02 27.19 kg/m2 University of 17:25:00 [facility] Oxygen saturation 2023-03-02 97 /min University of in Arterial blood 17:25:00 [facility] by Pulse oximetry [place] Systolic blood 2023-01-21 156 mm[Hg] University of pressure 23:13:33 [facility] Diastolic blood 2023-01-21 100 mm[Hg] University o f pressure 23:13:33 [facility] Heart rate 2023-01-21 88 /min University of 23:13:33 [facility] Respiratory rate 2023-01-21 20 /min University of 23:13:33 [facility] Oxygen saturation 2023-01-21 100 /min University of in Arterial blood 23:13:33 [facility] by Pulse oximetry [place] Body height 2023-01-21 160 cm University of 18:44:00 [facility] Body weight 2023-01-21 69.854 kg University of 18:44:00 [facility] BMI 2023-01-21 27.28 kg/m2 University of 18:44:00 [facility] Body temperature 2023-01-21 37.11 Alisha University of 18:43:00 [facility] Systolic blood 2023-01-15 121 mm[Hg] University of pressure 18:01:00 [facility] Diastolic blood 2023-01-15 81 mm[Hg] University o f pressure 18:01:00 [facility] Heart rate 2023-01-15 83 /min University of 18:01:00 [facility] Respiratory rate 2023-01-15 16 /min University of 18:01:00 [facility] Oxygen saturation 2023-01-15 97 /min University of in Arterial blood 18:01:00 [facility] by Pulse oximetry Branch Body temperature 2023-01-15 36.89 Alisha University of 14:55:07 [facility] Body weight 2023-01-15 68.04 kg University of 13:47:00 [facility] BMI 2023-01-15 26.57 kg/m2 University of 13:47:00 [facility] Systolic blood 2023-01-15 131 mm[Hg] University of pressure 10:13:00 [facility] Diastolic blood 2023-01-15 83 mm[Hg] University o f pressure 10:13:00 [facility] Heart rate 2023-01-15 104 /min University of 10:13:00 [facility] Body temperature 2023-01-15 36.94 Alisha University of 10:13:00 [facility] Respiratory rate 2023-01-15 21 /min University of 10:13:00 [facility] Body height 2023-01-15 160 cm University of 10:13:00 [facility] Body weight 2023-01-15 68.04 kg University of 10:13:00 [facility] BMI 2023-01-15 26.57 kg/m2 University of 10:13:00 [facility] Oxygen saturation 2023-01-15 100 /min University of in Arterial blood 10:13:00 [facility] by Pulse oximetry [facility] Systolic blood 2022-12-31 128 mm[Hg] University of pressure 05:09:00 [facility] Diastolic blood 2022-12-31 79 mm[Hg] University o f pressure 05:09:00 [facility] Heart rate 2022-12-31 71 /min University of 05:09:00 [facility] Body temperature 2022-12-31 36.78 Alisha University of 05:09:00 [facility] Respiratory rate 2022-12-31 16 /min University of 05:09:00 [facility] Body height 2022-12-31 160 cm University of 05:09:00 [facility] Body weight 2022-12-31 67.586 kg University of 05:09: [facility] BMI 2022-12-31 26.39 kg/m2 University of 05:09:00 [facility] Oxygen saturation 2022-12-31 100 /min University of in Arterial blood 05:09:00 [facility] by Pulse oximetry [facility] Systolic blood 2022-12-22 132 mm[Hg] University of pressure 13:18:00 [facility] Diastolic blood 2022-12-22 92 mm[Hg] University o f pressure 13:18:00 [facility] Heart rate 2022-12-22 78 /min University of 13:18:00 [facility] Respiratory rate 2022-12-22 18 /min University of 13:18:00 [facility] Body height 2022-12-22 160 cm University of 13:18:00 [facility] Body weight 2022-12-22 69.4 kg University of 13:18:00 [facility] BMI 2022-12-22 27.10 kg/m2 University of 13:18:00 [facility] Systolic blood 2022-12-19 102 mm[Hg] University of pressure 10:00:00 [facility] Diastolic blood 2022-12-19 60 mm[Hg] University o f pressure 10:00:00 [facility] Heart rate 2022-12-19 85 /min University of 10:00:00 [facility] Respiratory rate 2022-12-19 13 /min University of 10:00:00 [facility] Oxygen saturation 2022-12-19 96 /min University of in Arterial blood 10:00:00 [facility] by Pulse oximetry Branch Body temperature 2022-12-19 36.28 Alisha University of 07:30:00 [facility] Body height 2022-12-19 160 cm University of 07:30:00 [facility] Body weight 2022-12-19 67.132 kg University of 07:30:00 [facility] BMI 2022-12-19 26.22 kg/m2 University of 07:30:00 [facility] Systolic blood 2022-12-15 125 mm[Hg] University of pressure 15:48:00 [facility] Diastolic blood 2022-12-15 77 mm[Hg] University o f pressure 15:48:00 [facility] Heart rate 2022-12-15 75 /min University of 15:48:00 [facility] Body height 2022-12-15 160 cm University of 15:48:00 [facility] Body weight 2022-12-15 68.448 kg University of 15:48:00 [facility] BMI 2022-12-15 26.73 kg/m2 University of 15:48:00 [facility] Oxygen saturation 2022-12-15 98 /min University of in Arterial blood 15:48:00 [facility] shanice by Pulse oximetry Branch Systolic blood 2022-12-14 132 mm[Hg] University of pressure 08:04:00 [facility] Diastolic blood 2022-12-14 87 mm[Hg] University o f pressure 08:04:00 [facility] Heart rate 2022-12-14 83 /min University of 08:04:00 [facility] Body temperature 2022-12-14 36.67 Alisha University of 08:04:00 [facility] Respiratory rate 2022-12-14 20 /min University of 08:04:00 [facility] Body height 2022-12-14 160 cm University of 08:04:00 [facility] Body weight 2022-12-14 67.132 kg University of 08:04:00 [facility] BMI 2022-12-14 26.22 kg/m2 University of 08:04:00 [facility] Oxygen saturation 2022-12-14 97 /min University of in Arterial blood 08:04:00 [facility] by Pulse oximetry Branch Systolic blood 2022-11-03 143 mm[Hg] University of pressure 17:45:00 [facility] Diastolic blood 2022-11-03 89 mm[Hg] University o f pressure 17:45:00 [facility] Heart rate 2022-11-03 89 /min University of 17:45:00 [facility] Respiratory rate 2022-11-03 16 /min University of 17:45:00 [facility] Oxygen saturation 2022-11-03 99 /min University of in Arterial blood 17:45:00 [facility] shanice by Pulse oximetry Branch Body temperature 2022-11-03 36.61 Alisha University of 14:13:00 [facility] Body height 2022-11-03 160 cm University of 14:13:00 [facility] Body weight 2022-11-03 68.04 kg University of 14:13:00 [facility] BMI 2022-11-03 26.57 kg/m2 University of 14:13:00 [facility] Systolic blood 2022-10-28 115 mm[Hg] University of pressure 21:02:00 [facility] Diastolic blood 2022-10-28 69 mm[Hg] University o f pressure 21:02:00 [facility] Heart rate 2022-10-28 93 /min University of 21:02:00 [facility] Body temperature 2022-10-28 36.89 Alisha University of 21:02:00 [facility] Body height 2022-10-28 160 cm University of 21:02:00 [facility] Body weight 2022-10-28 70.308 kg University of 21:02:00 [facility] BMI 2022-10-28 27.46 kg/m2 University of 21:02:00 [facility] Oxygen saturation 2022-10-28 100 /min University of in Arterial blood 21:02:00 [facility] shanice by Pulse oximetry Branch Systolic blood 2022-10-13 133 mm[Hg] University of pressure 07:58:00 [facility] Diastolic blood 2022-10-13 72 mm[Hg] University o f pressure 07:58:00 [facility] Heart rate 2022-10-13 109 /min University of 07:58:00 [facility] Body temperature 2022-10-13 36.78 Alisha University of 07:58:00 [facility] Respiratory rate 2022-10-13 16 /min University of 07:58:00 [facility] Body weight 2022-10-13 67.132 kg University of 07:58:00 [facility] BMI 2022-10-13 26.22 kg/m2 University of 07:58:00 [facility] Oxygen saturation 2022-10-13 99 /min [facility] in Arterial blood 07:58:00 [facility] Systolic blood 2022-10-10 120 mm[Hg] University of pressure 00:44:00 [facility] Diastolic blood 2022-10-10 82 mm[Hg] University o f pressure 00:44:00 [facility] Heart rate 2022-10-10 110 /min University of 00:44:00 [facility] Body temperature 2022-10-10 36.33 Alisha University of 00:44:00 [facility] Respiratory rate 2022-10-10 18 /min University of 00:44:00 [facility] Body height 2022-10-10 160 cm University of 00:44:00 [facility] Body weight 2022-10-10 67.132 kg University of 00:44:00 [facility] BMI 2022-10-10 26.22 kg/m2 University of 00:44:00 [facility] Oxygen saturation 2022-10-10 99 /min University of in Arterial blood 00:44:00 [facility] shanice by Pulse oximetry Branch Systolic blood 2022-09-10 165 mm[Hg] University of pressure 00:13:00 [facility] Diastolic blood 2022-09-10 99 mm[Hg] University o f pressure 00:13:00 [facility] Heart rate 2022-09-10 125 /min University of 00:13:00 [facility] Body temperature 2022-09-10 36.61 Alisha University of 00:13:00 [facility] Respiratory rate 2022-09-10 20 /min University of 00:13:00 [facility] Body weight 2022-09-10 65.772 kg University of 00:13:00 [facility] BMI 2022-09-10 25.69 kg/m2 University of 00:13:00 [facility] Oxygen saturation 2022-09-10 99 /min University of in Arterial blood 00:13:00 [facility] by Pulse oximetry Branch Systolic blood 2022-08-18 134 mm[Hg] University of pressure 22:36:00 [facility] Diastolic blood 2022-08-18 86 mm[Hg] University o f pressure 22:36:00 [facility] Heart rate 2022-08-18 100 /min University of 22:36:00 [facility] Body temperature 2022-08-18 37.11 Alisha University of 22:36:00 [facility] Respiratory rate 2022-08-18 20 /min University of 22:36:00 [facility] Body height 2022-08-18 160 cm University of 22:36:00 [facility] Body weight 2022-08-18 67.132 kg University of 22:36:00 [facility] BMI 2022-08-18 26.22 kg/m2 University of 22:36:00 [facility] Oxygen saturation 2022-08-18 100 /min University of in Arterial blood 22:36:00 [facility] by Pulse oximetry Branch Systolic blood 2022-01-20 123 mm[Hg] [facility] pressure 18:11:00 Hospital Diastolic blood 2022-01-20 85 mm[Hg] [facility] pressure 18:11:00 Hospital Heart rate 2022-01-20 88 /min [facility] 18:11:00 Hospital Body temperature 2022-01-20 36.28 Alisha [facility] 18:11:00 Hospital Respiratory rate 2022-01-20 20 /min [facility] 18:11:00 Hospital Body height 2022-01-20 160 cm [facility] 18:11:00 Hospital Body weight 2022-01-20 66.225 kg [facility] 18:11:00 Hospital BMI 2022-01-20 25.86 kg/m2 [facility] 18:11:00 Hospital Oxygen saturation 2022-01-20 99 /min [facility] in Arterial blood 18:11:00 Hospital by Pulse [...] Systolic blood 2020-02-14 113 mm[Hg] [facility] 09:21:00 Position: Sitting Diastolic blood 2020-02-14 72 mm[Hg] Location: [facility] pressure 09:21:00 Position: Sitting Body height 2020-02-14 67 [in_us] [facility] 09:21:00 Weight 2020-02-14 161 [lb_av] [facility] 09:21:00 Body mass index 2020-02-14 25.22 kg/m2 [facility] (BMI) [Ratio] 09:21:00 Body temperature 2020-02-14 95.3 [degF] [facility] 09:21:00 Heart Rate 2020-02-14 87 /min [facility] 09:21:00 Systolic blood 2020-01-31 108 mm[Hg] Location: [facility]; [facility] pressure 08:57:00 Position: Sitting Diastolic blood 2020-01-31 76 mm[Hg] Location: [facility] pressure 08:57:00 Position: Sitting Body height 2020-01-31 67 [in_us] [facility] 08:57:00 Weight 2020-01-31 159.375 [lb_av] [facility] 08:57:00 Body mass index 2020-01-31 24.96 kg/m2 [facility] (BMI) [Ratio] 08:57:00 Body temperature 2020-01-31 97.9 [degF] Method: Oral [facility] 08:57:00 Heart Rate 2020-01-31 78 /min [facility] 08:57:00 BP Systolic 2019-06-28 130 mm[Hg] Location: [facility] 16:14:00 Position: Sitting BP Diastolic 2019-06-28 82 mm[Hg] Location: [facility] 16:14:00 Position: Sitting Height 2019-06-28 67 [...] ABDOMEN PELVIS W 2023-01-21 21:07:22 Evangelina Abad [facility] POCT TEST 2023-01-21 19:34:00 Gutierrez Moncada [facility] LIPASE 2023-01-21 19:32:00 Gutierrez Moncada [facility] [place] TROPONIN I 2023-01-21 19:32:00 Evangelina Abad [facility] Medical Branch COMP. METABOLIC PANEL 2023-01-21 19:32:00 Gutierrez Moncada [facility] ([id number]) Medical Branch CBC WITH DIFF 2023-01-21 19:32:00 Gutierrez [facility] URINALYSIS 2023-01-21 19:32:00 Gutierrez [facility] CONSENT/REFUSAL FOR 2023-01-21 18:36:13 Doctor Unassigned, No [facility] [place] [facility] Name Medical Branch LIPASE 2023-01-15 14:47:00 Luiza Lal [facility] [place] COMP. METABOLIC PANEL 2023-01-15 14:47:00 Luiza Lal [facility] ([id number]) Medical Branch CBC WITH DIFF 2023-01-15 14:47:00 Luiza Lal [facility] Medical Branch CONSENT/REFUSAL FOR 2023-01-15 13:41:26 Doctor Unassigned, No [facility] [place] [facility] Name Medical Branch CONSENT/REFUSAL FOR 2023-01-15 10:06:16 Doctor Unassigned, No [facility] [place] [facility] Name Medical Branch EXTERNAL PROVIDER 2023-01-07 05:01:00 Doctor Unassigned, No [facility] [place] RECORDS Name Medical Branch EXTERNAL PROVIDER 2023-01-04 05:01:00 Doctor Unassigned, No [facility] [place] RECORDS Name Medical Branch CONSENT/REFUSAL FOR 2022-12-31 05:04:15 Doctor Unassigned, No [facility] [place] [facility] Name Medical Branch CT ANGIOGRAPHY 2022-12-30 17:15:00 Amrit Ma [facility] CORONARIES WITHOUT Medical Branc h CARDIAC CALCIUM SCORING HB CREATININE 2022-12-30 16:24:00 Amrit Ma [facility] SERUM/BLOOD FOR IMAGING Medical Branch CONSENT/REFUSAL FOR 2022-12-30 15:17:01 Doctor Unassigned, No [facility] [place] [facility] Name Medical Branch EXTERNAL PROVIDER 2022-12-29 05:01:00 Doctor Unassigned, No [facility] RECORDS Name Medical Branch AUTHORIZATION TO RELEASE 2022-12-21 05:01:00 Doctor Unassigned, No [facility] PHI TO [facility] Name Medical Branch CT ANGIOGRAM CHEST 2022-12-19 09:28:16 Iza Medina [facility] TROPONIN I 2022-12-19 08:40:00 Iza Medina [facility] D-DIMER 2022-12-19 08:40:00 Iza Medina [facility] CONSENT/REFUSAL FOR 2022-12-19 07:30:10 Doctor Unassigned, No [facility] DI[facility] TREATMENT [facility] D-DIMER 2022-12-14 10:47:00 Iza Medina [facility] TROPONIN I 2022-12-14 10:16:00 Iza Medina [facility] LIPASE 2022-12-14 08:31:00 Iza Medina [facility] TROPONIN I 2022-12-14 08:31:00 Iza Medina [facility] COMP. METABOLIC PANEL 2022-12-14 08:31:00 Iza Medina [facility] ([id number]) [facility] CBC WITH DIFF 2022-12-14 08:31:00 Iza Medina [facility] THYROID STIMULATING 2022-12-14 08:31:00 Amrit Ma [facility] HORMONE [facility] Branch NOTICE OF PRIVACY 2022-12-14 07:50:02 Doctor Unassigned, No [facility] PRACTICES Name Medical Branch CONSENT/REFUSAL FOR 2022-12-14 07:49:31 Doctor Unassigned, No [facility] DIAGNOSIS AND TREATMENT [facility] Branch URINALYSIS 2022-11-03 15:27:00 Claudia Dotson [facility] URINE DRUG (IMMUNOASSAY) 2022-11-03 15:27:00 Claudia Dotson [facility] SCREEN W/O REFLEX TEST, SERUM 2022-11-03 14:38:00 Claudia Dotson [facility] [place] COMP. METABOLIC PANEL 2022-11-03 14:38:00 Claudia Dotson [facility] ([id number]) [facility] [place] CBC WITH DIFF 2022-11-03 14:38:00 Claudia Dotson [facility] D-DIMER 2022-11-03 14:38:00 Claudia Dotson [facility] CONSENT/REFUSAL FOR 2022-11-03 14:04:36 Doctor Unassigned, No [facility] [place] [facility] Name Medical Branch CONSENT/REFUSAL FOR 2022-10-28 20:34:23 Doctor Unassigned, No [facility] [place] [facility]REAT[facility] Name Medical Branch CONSENT/REFUSAL FOR 2022-10-13 07:49:25 Doctor Unassigned, No [facility] [place] [facility] TREAT[facility] Name Medical Branch CONSENT/REFUSAL FOR 2022-10-10 00:16:57 Doctor Unassigned, No [facility] [place] [facility] TREAT[facility] Name Medical Branch MRI LUMBAR SPINE WO 2022-10-07 00:35:00 [facility] CONTRAST MRI CERVICAL SPINE WO 2022-10-07 00:22:00 [facility] CONTRAST CONSENT/REFUSAL FOR 2022-09-10 00:07:30 Doctor Unassigned, No [facility] [place] [facility] Name Medical Branch CONSENT/REFUSAL FOR 2022-08-18 22:20:24 Doctor Unassigned, No [facility] [place] [facility] Name Medical Branch CT SPINE EXTERNAL STUDY 2021-11-28 20:02:53 [facility] CT SPINE EXTERNAL STUDY 2021-11-28 19:57:48 [facility] CT SPINE EXTERNAL STUDY 2021-11-28 19:52:18 [facility] REFERRAL- 2021-11-21 05:01:00 Doctor Unassigned, No [facility] REQUEST/RESPONSE Name Medical Branch MRI SPINE EXTERNAL STUDY 2021-10-09 18:17:21 Jorge Luis Mcdonnell [facility] [QL] CBC (INCLUDES 2020-02-16 00:00:00 [facility] DIFF/PLT) EMB 2020-02-14 00:00:00 [facility] . Kay - Affirm VPIII 2020-02-14 00:00:00 [facility] [...] [facility] Transvaginal and Pelvic Doppler 33155 [facility] surgery [facility] of [facility] section low transverse Plan of Care Planned Activity Planned Date Details Comments Source Future Scheduled 2023-02-19 Pneumococcal Vaccine: [facility] [place] [place] Test 07:49:13 Pediatrics (0 to 5 Years) and At-Risk Patients (6 to 64 Years) (1 - PCV) [code = Pneumococcal Vaccine: Pediatrics (0 to 5 Years) and At-Risk Patients (6 to 64 Years) (1 - PCV)] Future Scheduled 2023-02-19 Hepatitis C screening [facility] [place] [place] Test 07:49:13 (procedure) [code = 834402431] Future Scheduled 2023-02-19 Screening for [facility] Test 07:49:13 malignant neoplasm of cervix (procedure) [code = 986200194] Future Scheduled 2023-02-19 COVID-19 [facility]ACCINE [facility] 07:49[facility]13 Pfizer series) [code = COVID-19 VACCINE (3 - Pfizer series)] Future Scheduled 2023-02-19 INFLUENZA VACCINE Method [facility] Test 07:49:13 [code = INFLUENZA VACCINE] Future Scheduled 2022-12-30 Pneumococcal Vaccine: [facility] [place] [place] Test 10:15:19 Pediatrics (0 to 5 Years) and At-Risk Patients (6 to 64 Years) (1 - PCV) [code = Pneumococcal Vaccine: Pediatrics (0 to 5 Years) and At-Risk Patients (6 to 64 Years) (1 - PCV)] Future Scheduled 2022-12-30 Hepatitis C screening [facility] Test 10:15:19 (procedure) [code = 505604606] Future Scheduled 2022-12-30 Screening for [facility] Test 10:15:19 malignant neoplasm of cervix (procedure) [code = 842616649] Future Scheduled 2022-12-30 COVID-19 VACCINE (3 - [facility] Test 10:15:19 Booster for Pfizer series) [code = COVID-19 VACCINE (3 - Booster for Pfizer series)] Future Scheduled 2022-12-30 INFLUENZA VACCINE Method [facility] Test 10:15:19 [code = INFLUENZA VACCINE] Future Scheduled 2022-12-30 Pneumococcal Vaccine: [facility] Test 10:15:19 Pediatrics (0 to 5 Years) and At-Risk Patients (6 to 64 Years) (1 - PCV) [code = Pneumococcal Vaccine: Pediatrics (0 to 5 Years) and At-Risk Patients (6 to 64 Years) (1 - PCV)] Future Scheduled 2022-12-30 Hepatitis C screening [facility] Test 10:15:19 (procedure) [code = 186863256] Future Scheduled 2022-12-30 Screening for [facility] Test 10:15:19 malignant neoplasm of cervix (procedure) [code = 819748140] Future Scheduled 2022-12-30 COVID-19 VACCINE (3 - [facility] Test 10:15:19 Booster for Pfizer series) [code = COVID-19 VACCINE (3 - Booster for Pfizer series)] Future Scheduled 2022-12-30 INFLUENZA VACCINE Method [facility] Test 10:15:19 [code = INFLUENZA VACCINE] Future Scheduled 2022-12-30 Pneumococcal Vaccine: [facility] Test 10:15:19 Pediatrics (0 to 5 Years) and At-Risk Patients (6 to 64 Years) (1 - PCV) [code = Pneumococcal Vaccine: Pediatrics (0 to 5 Years) and At-Risk Patients (6 to 64 Years) (1 - PCV)] Future Scheduled 2022-12-30 Hepatitis C screening [facility] [place] [place] Test 10:15:19 (procedure) [code = 657658952] Future Scheduled 2022-12-30 Screening for [facility] Test 10:15:19 malignant neoplasm of cervix (procedure) [code = 698245872] Future Scheduled 2022-12-30 COVID-19 VACCINE (3 - [facility] [place] [place] Test 10:15:19 Booster for Pfizer series) [code = COVID-19 VACCINE (3 - Booster for Pfizer series)] Future Scheduled 2022-12-30 INFLUENZA VACCINE Method [facility] Hospital Test 10:15:19 [code = INFLUENZA VACCINE] Future Scheduled 2022-08-02 Pneumococcal Vaccine: [facility] [place] [place] Test 11:23:36 Pediatrics (0 to 5 Years) and At-Risk Patients (6 to 64 Years) (1 - PCV) [code = Pneumococcal Vaccine: Pediatrics (0 to 5 Years) and At-Risk Patients (6 to 64 Years) (1 - PCV)] Future Scheduled 2022-08-02 Hepatitis C screening [facility] [place] [place] Test 11:23:36 (procedure) [code = 520300489] Future Scheduled 2022-08-02 Screening for [facility] Test 11:23:36 malignant neoplasm of cervix (procedure) [code = 439923016] Future Scheduled 2022-08-02 COVID-19 VACCINE (3 - [facility] [place] Test 11:23:36 Booster for Pfizer series) [code = COVID-19 VACCINE (3 - Booster for Pfizer series)] Future Scheduled 2022-08-02 INFLUENZA VACCINE [facility] Test 11:23:36 [code = INFLUENZA VACCINE] Future Scheduled 2022-07-24 Pneumococcal Vaccine: [facility] [place] [place] Test 21:51:51 Pediatrics (0 to 5 Years) and At-Risk Patients (6 to 64 Years) (1 - PCV) [code = Pneumococcal Vaccine: Pediatrics (0 to 5 Years) and At-Risk Patients (6 to 64 Years) (1 - PCV)] Future Scheduled 2022-07-24 Hepatitis C screening [facility] [place] [place] Test 21:51:51 (procedure) [code = 900526556] Future Scheduled 2022-07-24 Screening for [facility] Test 21:51:51 malignant neoplasm of cervix (procedure) [code = 041017563] Future Scheduled 2022-07-24 COVID-19 VACCINE (3 - [facility] [place] [place] Test 21:51:51 Booster for Pfizer series) [code = COVID-19 VACCINE (3 - Booster for Pfizer series)] Future Scheduled 2022-07-24 INFLUENZA VACCINE Method [facility] Test 21:51:51 [code = INFLUENZA VACCINE] Future Scheduled 2022-07-15 Pneumococcal Vaccine: [facility] [place] [place] Test 15:03:03 Pediatrics (0 to 5 Years) and At-Risk Patients (6 to 64 Years) (1 - PCV) [code = Pneumococcal Vaccine: Pediatrics (0 to 5 Years) and At-Risk Patients (6 to 64 Years) (1 - PCV)] Future Scheduled 2022-07-15 Hepatitis C screening [facility] [place] [place] Test 15:03:03 (procedure) [code = 353208217] Future Scheduled 2022-07-15 Screening for [facility] Test 15:03:03 malignant neoplasm of cervix (procedure) [code = 426270279] Future Scheduled 2022-07-15 COVID-19 VACCINE (3 - [facility] [place] Test 15:03:03 Booster for Pfizer series) [code = COVID-19 VACCINE (3 - Booster for Pfizer series)] Future Scheduled 2022-07-15 INFLUENZA VACCINE Method [facility] Test 15:03:03 [code = INFLUENZA VACCINE] Future Scheduled 2022 Pneumococcal Vaccine: [facility] Test 09:54:03 Pediatrics (0 to 5 Years) and At-Risk Patients (6 to 64 Years) (1 - PCV) [code = Pneumococcal Vaccine: Pediatrics (0 to 5 Years) and At-Risk Patients (6 to 64 Years) (1 - PCV)] Future Scheduled 2022 Hepatitis C screening [facility] [place] [place] Test 09:54:03 (procedure) [code = 632328918] Future Scheduled 2022 Screening for [facility] Test 09:54:03 malignant neoplasm of cervix (procedure) [code = 901937827] Future Scheduled 2022 COVID-19 [facility]ACCINE ([facility] 09:54:03 Booster for Pfizer series) [code = COVID-19 VACCINE (3 - Booster for Pfizer series)] Future Scheduled 2022 INFLUENZA VACCINE Method [facility] Test 09:54:03 [code = INFLUENZA VACCINE] Encounters Start End Encounter Admission Attending Care Care Encounter Source Date/Time Date/Time Type Type Clinicians Facility Department ID 2021-07-06 Emergency [facility] [id number] Univers 13:36:32 ity [facility] 2021-07-04 Emergency [facility] [id number] Univers 11:22:30 ity [facility] 2021-07-04 Emergency [facility] [id number] [facility]09 Inpatient [facility] MALISSA [id number] [facility] 10:52:00 [id number] [facility] 2020-12-27 Inpatient [facility] MALISSA [id number] [facility] 20:29:00 65 [facility] 2020-12-26 Inpatient CLAUDETTE Escobar, [facility] [id number] [facility] 10:00:00 Rik 01 [facility] 2020-12-22 Inpatient [facility] [id number] [facility] 23:08:15 49 [facility] 2020-08-23 Inpatient [facility] MALISSA [id number] [facility] 09:10:00 26 [facility] 2020-08-05 Inpatient [facility] MALISSA [id number] [facility] 20:55:00 [id number] [facility] 2020-02-20 Outpatient MIRYAM, [facility] [id number] M [facility] 10:04:01 LISHA 2023-03-02 2023-03-02 Urgent Talha Alas [facility] [id number] Univers 12:00:00 12:20:00 Care Unknown, Attending HEALTH [id number] itFay [id number] Zay as BLANCA?BLEA [id number] Me denilson [address] MEDICAL OFFICE BUILDING 2023-03-02 2023-03-02 Outpatient Anton ALAS [facility] [id number] Univers 12:00:00 12:00:00 TALHA calixto [facility] 2023-03-02 2023-03-02 Frandy Alas [facility] [id number] Univers 00:00:00 00:00:00 ([facility] [id number] it y of [facility] [id number] Zay as BLANCA?BLEA [id number] Ct denilson [address] MEDICAL OFFICE BUILDING 2023-01-21 2023-01-21 Emergency [id number] Univers 13:46:00 18:49:00 EVANGELINA misty [facility] 2023-01-21 2023-01-21 [facility] [id number] Univers 13:46:00 18:49:00 [facility] [id number] it y of [place] [id number] [facility] [id number] [address] ([facility]) 2023-01-21 2023-01-21 Outpatient R KRISTY [facility] [id number] Univers 13:30:00 13:30:00 SMITHA [facility] 2023-01-15 2023-01-15 Emergency [facility] [id number] Univers 08:50:00 13:10:00 LUIZA [facility] 2023-01-15 2023-01-15 [facility] [id number] Univers 08:50:00 13:10:00 Luiza GUERRERO [id number] i ty of [place] [id number] [facility] [id number] [address] 2023-01-15 2023-01-15 Outpatient R KENZIE BADILLO [facility] [id number] Univers 09:00:00 09:00[facility] 2023-01-15 2023-01-15 Emergency [facility] [id number] Univers 05:24:00 06:28:00 IZA [facility] 2023-01-15 2023-01-15 Emergency [facility] [id number] Univers 05:24:00 06:28:00 Iza GUERRERO [id number] ity of [place] [id number] [facility] [id number] [facility] 084 Branch 2023-01-12 2023-01-12 Outpatient R FELISHA [facility] [id number] Univers 10:30:00 10:30:00 ИВАН ity [facility] 2023-01-08 2023-01-08 Outpatient R FRANCESCA [facility] [id number] Univers 08:00:00 08:00:00 SENDIL ity [facility] 2023-01-07 2023-01-07 Orders Doctor SUDHA 1.2.840.114 [id number] Univers 00:00:00 00:00:00 Only Unassigned, ALEM 350.1.13.10 ity of [place] [facility] 4.2.7.2.686 Zay as [phone] [facility] [address] Branch 2023-01-04 2023-01-04 Orders Doctor SUDHA 1.2.840.114 [id number] Univers 00:00:00 00:00:00 Only Unassigned, ALEM 350.1.13.10 ity of [place] [facility] 4.2.7.2.686 Zay as [phone] [facility] 00[address] Branch 2023-01-04 2023-01-04 Telephone Felisha [facility] 1.2.193.758 3990 14414 Univers 00:00:00 00:00:00 [facility] 350.1.13.10 it y of [place] CANCER 4.2.7.2.686 [facility] - [phone] Med ical [facility] [address] 2023-01-01 2023-01-01 Telephone Sammie [facility] [place] 1.2.840.11 4 [id number] Univers 00:00:00 00:00:00 Jorge GANDARA 350.1.13.10 it y of WOMEN'S 4.2.7.2.686 [facility] [phone] [facility] [address] 2022-12-31 2022-12-31 Emergency X Jasmin SILVER [facility] ERT [id number] Univers 00:13:00 01:07:00 ity of [facility] 2022-12-31 2022-12-31 Emergency Jg, K [facility] 1.2.840.114 10 [id number] Univers 00:13:00 01:07:00 Filomena GUERRERO 350.1.13.10 i ty of [place] 4.2.7.2.686 [facility] [id number] [place] [address] [place] 2022-12-31 2022-12-31 Telephone [facility] 1.2.529.594 4239 77416 Univers 00:00:00 00:00:00 Sendil Ismael GUERRERO 350.1.13.10 ity of [place] 4.2.7.2.686 [facility] PROFESSIO [phone] [place] 726129 [facility] 2022-12-30 2022-12-30 [facility] 1.2.840.114 77850 6833 Univers 10:38:24 23:59:00 Encounter Amrit GUERRERO 350.1.13.10 ity of [place] 4.2.7.2.686 [facility] [phone] [facility] [address] 2022-12-30 2022-12-30 [facility] [id number] Univers 10:38:24 23:59:00 SENDIL ity of [facility] 2022-12-30 2022-12-30 Emergency [facility] [id number] Univers 10:21:00 10:33:00 AWILDA ity of [facility] 2022-12-30 2022-12-30 Emergency [facility] 1.2.840.114 10 [id number] Univers 10:21:00 10:33:00 Awilda GUERRERO 350.1.13.10 ity of [place] 4.2.7.2.686 [facility] [phone] [address] 2022-12-30 2022-12-30 [facility] 12.840.11 4 [id number] Univers 00:00:00 00:00:00 Jorge GADNARA 350.1.13.10 it y of WOMEN'S 4.2.7.2.686 [place] [facility] [id number] [facility] [address] 2022-12-29 2022-12-29 Outpatient R JORGE CHANDRA [facility] [id number] Univers 13:30:00 13:30:00 JORGE CHANDRA ity of [facility] 2022-12-29 2022-12-29 Orders Doctor SUDHA 1.2.840.114 [id number] Univers 00:00:00 00:00:00 Only Unassigned, ALEM 350.1.13.10 ity of [place] [facility] 4.2.7.2.686 Zay as [phone] [facility] [address] 2022-12-29 2022-12-29 Telephone Felisha [facility] 1.2.950.910 4702 53621 Univers 00:00:00 00:00:00 [facility] 350.1.13.10 it y of [place] CANCER 4.2.7.2.686 [facility] - [phone] Med [facility] [address] [place] 2022-12-28 2022-12-28 Telephone Felisha [facility] 1.2.850.673 0501 [id number] Univers 00:00:00 00:00:00 [facility] 350.1.13.10 it y of [place]ER 4.2.7.2.686 [facility] - [phone] [facility] [address] [place] 2022-12-25 2022-12-25 Patient Graciela [facility] 1.2.840.114 [id number] 828 Univers 00:00:00 00:00:00 Secure [facility] 350.1.13.10 ity of [place] 4.2.7.2.686 Zay as BLANCA?BLEA [phone] Ct denilson [place] [address] [place] [address] MEDICAL OFFICE BUILDING 2022-12-23 2022-12-23 Telephone Sammie [facility] 1.2.840.11 4 [id number] Univers 00:00:00 00:00:00 Jorge GANDARA 350.1.13.10 it y of [place].2.[place] [facility] [phone] [facility] [address] [place] [address] 2022-12-23 2022-12-23 Patient Gurpreet [facility] 1.2.840.114 [id number] Univers 00:00:00 00:00:00 Secure Msg Norberto GUERRERO 350.1.13.10 ity [facility] 4.2.7.2.686 [place] [phone] Ct dicenid CASANOVA 134 [facility] 2022-12-22 2022-12-22 [employer], Ang - Db [facility] 1.2.840.1 14 [id number] Univers 09:30:00 09:45:00 [facility] 350.1.13.1 0 ity of [place] 4.2.7.2.686 Zay as BLANCA?BLEA [phone] Ct dicenid [place] [address] [place] [address] MEDICAL OFFICE [facility] 2022-12-22 2022-12-22 Office Sammie [facility] 1.2.840.114 [id number] Univers 08:00:00 08:53:38 Visit Jorge GANDARA 350.1.13.10 it y of WOMEN'S 4.2.7.2.686 [place] [facility] [id number] [address] 2022-12-22 2022-12-22 Outpatient R JORGE CHANDRA [facility] [id number] Univers 08:00:00 08:53:38 JORGE CHANDRA ity [facility] 2022-12-21 2022-12-21 Orders Doctor SUDHA 1.2.840.114 [id number] Univers 00:00:00 00:00:00 Only Unassigned, ALEM 350.1.13.10 ity of [place] [facility] 4.2.7.2.686 Zay as [phone] [address] 2022-12-19 2022-12-19 Emergency X JAGRUTI [facility] ERT [id number] Univers 02:32:00 05:47:00 IZA ity [facility] 2022-12-19 2022-12-19 Emergency Jagruti [facility] 1.2.160.526 3943 14223 Univers 02:32:00 05:47:00 Iza GUERRERO 350.1.13.10 ity of [place] 4.2.7.2.686 [place] [facility] [phone] [facility] 0[address] 2022-12-18 2022-12-18 Outpatient R COURTNEY KENZIE [facility] [id number] Univers 09:45:00 09:45:00 ity of [facility] 2022-12-17 2022-12-17 Telephone Kenzie Badillo [facility] 1.2.840.114 [id number] Univers 00:00:00 00:00:00 E HEALTH 350.1.13.10 it y of [place] 4.2.7.2.686 [place] [facility] - [phone] Med ical [facility] [address] 2022-12-15 2022-12-15 Outpatient R FRANCESCA [facility] [id number] Univers 11:00:00 11:30:30 SENDIL ity [facility] 2022-12-15 2022-12-15 Office [facility] 1.2.840.114 [id number] Univers 11:00:00 11:30:30 Visit Sendil Ismael GUERRERO 350.1.13.10 ity of [place] 4.2.7.2.686 [place] [phone] Ct dicde NAL [address] [place] [address] 2022-12-15 2022-12-15 Telephone [facility] 1.2.166.070 1301 35050 Univers 00:00:00 00:00:00 Sendil Ismael GUERRERO 350.1.13.10 ity of [facility] 4.2.7.2.686 [place] [phone] Ct dicde NAL [address] [place] [address] 2022-12-14 2022-12-14 Emergency X [facility] ERT [id number] Univers 03:03:00 07:05:00 WAKILI ity [facility] 2022-12-14 2022-12-14 Emergency [facility] 1.2.015.945 [id number] [id number] Univers 03:03:00 07:05:00 Iza GARNERTON 350.1.13.10 ity of [facility] 4.2.7.2.[address] [facility] [phone] [place] [address] [place] 2022-11-03 2022-11-03 Emergency X KIKI, [facility] ERT [id number] Univers 08:15:00 12:05:00 CLAUDIA ity of [facility] 2022-11-03 2022-11-03 Emergency Jimymd, [facility] 1.2.894.189 6265 [id number] Univers 08:15:00 12:05:00 Claudia GUERRERO 350.1.13.10 i ty of [facility] 4.2.7.2.686 [place] [facility] [phone] [address] 2022-10-28 2022-10-28 Outpatient R GRACIELA [facility] [id number] Univers 15:00:00 15:28:11 LINDA calixto of [facility] 2022-10-28 2022-10-28 Office Graciela [facility] 1.2.840.114 [id number] Univers 15:00:00 15:28:11 Visit [facility] 350.1.13.10 it y of [place] 4.2.7.2.686 Zay as BLANCA?BLEA [id number] [address] MEDICAL OFFICE BUILDING 2022-10-28 2022-10-28 Orders Doctor SUDHA 1.2.840.114 [id number] Univers 00:00:00 00:00:00 Only Unassigned, ALEM 350.1.13.10 ity of [place] [facility] 4.2.7.2.686 Zay as [phone] [facility] 00[address] [place] 2022-10-28 2022-10-28 Abstract Graciela [facility] 1.2.840.114 [id number] Univers 00:00:00 00:00:00 Linda [facility] 350.1.13.10 it y of [place] 4.2.7.2.686 Zay as BLANCA?BLEA [phone] [address] MEDICAL OFFICE BUILDING 2022-10-28 2022-10-28 Patient Henry [facility] 1.2.840.114 [id number] Univers 00:00:00 00:00:00 Outreach Charlotte CISNEROS 350.1.13.10 i ty [facility] 4.2.7.2.686 Zay as BLANCA?BLEA [phone] Ct denilson [place] [address] [place] [address] MEDICAL OFFICE BUILDING 2022-10-28 2022-10-[address] [facility] 1.2.233.204 7787 41978 Univers 00:00:00 00:00:00 Phylicia GUERRERO 350.1.13.10 i ty of [place] 4.2.7.2.686 [place] [phone] Ct denilson CASANOVA [address] [place] [address] 2022-10-13 2022-10-13 Emergency X [facility] ERT [id number] Univers 01:56:00 02:55:00 WAJANETTELI ity [facility] 2022-10-13 2022-10-13 [facility] 1.2.447.768 3754 51440 Univers 01:56:00 02:55:00 Wvcesar GUERRERO 350.1.13.10 ity of [place] 4.2.7.2.686 [place] [phone] [place] [address] [place] 2022-10-09 2022-10-09 Emergency X [facility] ERT [id number] Univers 18:46:00 19:00:00 LUIZA ity [facility] 2022-10-09 2022-10-09 Emergency [facility] 1.2.712.423 7109 15423 Univers 18:46:00 19:00:00 Luiza S PATSYJUAREZ 350.1.13.10 i ty of [place] 4.2.7.2.686 [place] [phone] [facility] [address] [place] 2022-10-09 2022-10-09 Orders Doctor SUDHA 1.2.840.114 [id number] Univers 00:00:00 00:00:00 Only Unassigned, ALEM 350.1.13.10 ity of [place] [facility] 4.2.7.2.686 Zay as [phone] [facility] [address] 2022-10-06 2022-10-06 [facility] 1.2.840.1 [id number] 742 [id number] Methodi 17:35:51 23:59:00 Encounter Jorge Luis 78289.1.1 997 s t 3.430.2.7 Hospit a .3.692789 l .8 2022-10-06 2022-10-06 [facility], 1.2.840.1 [id number] 434 [id number] Methodi 17:35:51 23:59:00 Encounter Jorge Luis 56430.1.1 997 s t 3.430.2.7 Hospit a .3.713488 l .8 2022-10-06 2022-10-06 [facility], 1.2.840.1 [id number] 875 [id number] Methodi 17:35:36 23:59:00 Encounter Jorge Luis 79253.1.1 999 s t 3.430.2.7 Hospit a .3.747751 l .8 2022-10-06 2022-10-06 [facility], 1.2.840.1 [id number] 423 2853698 Methodi 17:35:36 23:59:00 Encounter Jorge Luis 17810.1.1 999 s t 3.430.2.7 Hospit a .3.381585 l .8 2022-10-06 2022-10-06 Travel 1.2.840.1 1.2.010.652 8065 322731 Methodi 00:00:00 00:00:[address] 3.430.2.7 0.2.7.3.698 Ho spita .3.994356 084.8 l .8 2022-10-06 2022-10-06 Travel 1.2.840.1 1.2.740.038 9811 527552 Methodi 00:00:00 00:00:[address] 3.430.2.7 0.2.7.3.698 Ho spita .3.650876 084.8 l .8 2022-09-09 2022-09-09 Emergency X KEATING, [facility] ERT [id number] 724 Univers 18:15:00 19:35:00 NATY calixto [facility] 2022-09-092022-09-09 Emergency Keating, [facility] 1.2.840.114 [id number] [id number] Univers 18:15:00 19:35:00 Naty GUERRERO 350.1.13.10 i ty of [facility] 4.2.7.2.686 [facility] [phone] [facility] [address] 2022-08-18 2022-08-18 Emergency X [facility] ERT [id number] Univers 16:38:00 17:44:00 BEBO durga [facility] 2022-08-18 2022-08-18 [facility] 1.2.891.606 8608 1453 Univers 16:38:00 17:44:00 Bebo GARNERJUAREZ 350.1.13.10 i ty of [facility] 4.2.7.2.686 [facility] [id number] [facility] [address] 2022-08-07 2022-08-08 Inpatient EL Nayeli, [facility].01 [id number] [facility] 14:50:00 12:01:00 [facility]na [facility] 2022-08-03 2022-08-03 Emergency EM Omartin, [facility] AERS [id number] [facility] 14:26:00 16:02:00 Roro 86 [facility] 2022-07-23 2022-07-23 [facility], 1.2.840.1 [id number] Methodi 10:30:00 10:30:00 Encounter Jorge Luis 30681.1.1 209 s t 3.430.2.7 Hospit a .3.471511 l .8 2022-07-23 2022-07-23 Telephone Gabi, 1.2.840.1 [id number] 2099 [id number] Methodi 00:00:00 00:00:[address] 3.430.2.7 Hospit a .3.008205 l .8 2022-07-23 2022-07-23 Telephone Gabi, 1.2.840.1 [id number] 2099 [id number] Methodi 00:00:00 00:00:[address] 3.430.2.7 Hospit a .3.037867 l .8 2022-07-07 2022-07-07 Outpatient LONA DILL [id number] Lona 10:45:00 10:45:00 ELBERT alvarez 2022-07-06 2022-07-06 Travel 1.2.840.1 1.2.118.696 9746 321814 Methodi 00:00:00 00:00:[address] 3.430.2.7 0.2.7.3.698 Ho spita .3.833422 084.8 l .8 2022-07-06 2022-07-06 Travel 1.2.840.1 1.2.203.379 0481 176126 Methodi 00:00:00 00:00:[address] 3.430.2.7 0.2.7.3.698 Ho spita .3.853084 084.8 l .8 2022-06-15 2022-06-16 [facility], 1.2.840.1 [id number] 2099 [id number] Methodi 14:15:00 11:08:59 Visit Jorge Luis 31673.1.[address] 3.430.2.7 Hospit a .3.433656 l .8 2022-06-15 2022-06-16 [facility], 1.2.840.1 [id number] 2099 315954 Methodi 14:15:00 11:08:59 Visit Jorge Luis 42409.1.[address] 3.430.2.7 Hospit a .3.558160 l .8 2022-06-15 2022-06-15 [facility], 1.2.840.1 [id number] 527 [id number] Methodi 14:15:15 23:59:00 Encounter Jorge Luis 14509.1.1 971 s t 3.430.2.7 Hospit a .3.997776 l .8 2022-06-15 2022-06-15 [facility], 1.2.840.1 [id number] 535 [id number] Methodi 14:15:15 23:59:00 Encounter Jorge Luis 79638.1.1 971 s t 3.430.2.7 Hospit a .3.409560 l .8 2022-06-15 2022-06-15 [facility], 1.2.840.1 [id number] 689 [id number] Methodi 14:15:13 23:59:00 Encounter Jorge Luis 38884.1.1 963 s t 3.430.2.7 Hospit a .3.875318 l .8 2022-06-15 2022-06-15 [facility], 1.2.840.1 [id number] 347 [id number] Methodi 14:15:13 23:59:00 Encounter Jorge Luis 55382.1.1 963 s t 3.430.2.7 Hospit a .3.277611 l .8 2022-06-15 2022-06-15 [facility], 1.2.840.1 [id number] 865 [id number] Methodi 14:13:36 14:14:00 Encounter Jorge Luis 94234.1.1 680 s t 3.430.2.7 Hospit a .3.863581 l .8 2022-06-15 2022-06-15 [facility], 1.2.840.1 [id number] 346 0401003 Methodi 14:13:36 14:14:00 Encounter Jorge Luis 97732.1.1 680 s t 3.430.2.7 Hospit a .3.609350 l .8 2022-06-15 2022-06-15 [facility], 1.2.840.1 [id number] 235 [id number] Methodi 14:12:01 14:12:01 Encounter Jorge Luis 23119.1.1 418 s t 3.430.2.7 Hospit a .3.077170 l .8 2022-06-15 2022-06-15 [facility], 1.2.840.1 [id number] 249 [id number] Methodi 14:12:01 14:12:01 Encounter Jorge Luis 72655.1.1 418 s t 3.430.2.7 Hospit a .3.176870 l .8 2022-06-15 2022-06-15 Edilberto Mcdonnell, 1.2.840.1 [id number] 2100 386062 Methodi 00:00:00 00:00:00 Only Jorge Luis 23514.1.[address] 3.430.2.7 Hospit a .3.896925 l .8 2022-06-15 2022-06-15 Travel 1.2.840.1 1.2.051.306 6819 868410 Methodi 00:00:00 00:00:[address] 3.430.2.7 0.2.7.3.698 Ho spita .3.082096 084.8 l .8 2022-06-15 2022-06-15 Edilberto Mcdonnell, 1.2.840.1 [id number] 2100 668350 Methodi 00:00:00 00:00:00 Only Jorge Luis 35791.1.[address] 3.430.2.7 Hospit a .3.136423 l .8 2022-06-15 2022-06-15 Travel 1.2.840.1 1.2.312.774 0078 838423 Methodi 00:00:00 00:00:[address] 3.430.2.7 0.2.7.3.698 Ho spita .3.308500 084.8 l .8 2022-06-11 2022-06-11 Travel 1.2.840.1 1.2.259.093 3874 135006 Methodi 00:00:00 00:00:[address] 3.430.2.7 0.2.7.3.698 Ho spita .3.583612 084.8 l .8 2022-06-11 2022-06-11 Travel 1.2.840.1 1.2.316.141 4759 480191 Methodi 00:00:00 00:00:[address] 3.430.2.7 0.2.7.3.698 Ho spita .3.415856 084.8 l .8 2022-02-17 2022-02-17 Refill Jony, 1.2.840.1 [id number] 2100 387034 Methodi 00:00:00 00:00:[address] [place] [address] Andrea 3.430.2.7 Hospit a .3.926336 l .8 2022-01-20 2022-01-20 Office Jony, 1.2.840.1 [id number] 2100 793295 Methodi 13:00:00 13:57:49 Visit Jessi 58652.1.[address] [facility] 3.430.2.7 Hospit a .3.606368 l .8 2022-01-20 2022-01-20 Telephone GEORGIE Kelley 1.2.840.114 9 [id number] [facility] [place] 00:00:00 00:00:00 Michi MULTISPEC 350.1.13.10 ity [facility] 4.2.7.2.686 [facility] [phone] [address] [facility] 2022-01-20 2022-01-20 Travel 1.2.840.1 1.2.883.561 0706 516147 Methodi 00:00:00 00:00:[address] 3.430.2.7 0.2.7.3.698 Ho spita .3.387485 084.8 l .8 2022-01-19 2022-01-19 Telephone Jony MEGORDON 1.2.840.114 93 [id number] [facility] 00:00:00 00:00:00 Jessi MULTISPEC 350.1.13.10 ity of Andrea IALTY 4.2.7.2.686 [facility] s PLATINUM [id number] [address] DIABETES CLINIC 2021-11-21 2021-11-21 Orders Doctor SUDHA 1.2.840.114 [id number] Univers 00:00:00 00:00:00 Only Unassigned, ALEM 350.1.13.10 ity of [facility] 4.2.7.2.686 [facility] 257.1265009 [facility] [address] 2021-11-17 2021-11-18 Emergency [facility] [id number] Univers 19:45:00 00:44:00 DONTA ity [facility] 2021-11-17 2021-11-18 Emergency [facility] 1.2.328.012 8405 8574 Univers 19:45:00 00:44:00 Donta GARNERJUAREZ 350.1.13.10 i ty [facility] 4.2.7.2.686 [facility] [id number] [address] 2021-11-16 2021-11-16 Emergency [facility] [id number] 86 Univers 20:28:00 21:58:00 IZA ity [facility] 2021-11-16 2021-11-16 Emergency [facility] 1.2.999.021 1721 5340 Univers 20:28:00 21:58:00 Jasoncesar Evelin ISH 350.1.13.10 ity [facility] 4.2.7.2.686 [facility] [id number] [address] 2021-10-02 2021-10-02 Emergency EM Nwoye, HCACL MALISSA [id number] [facility] 16:59:00 20:32:00 Hung [id number] Cl [facility] 2021-10-02 2021-10-02 Emergency EM EDDOC, [facility] [id number] [facility] 16:59:00 20:32:00 GENERIC 76 [facility] 2021-10-01 2021-10-01 Petr Borges 1.2.840.1 [id number] 2100 [id number] Lucia 00:00:00 00:00:00 Jessi 62791.1.1 738 [facility] 3.430.2.7 Hospit a .3.452749 l .8 2021-09-30 2021-09-30 Emergency X ELISA, [facility] ERT [id number] Univers 13:31:00 16:34:00 [facility] 2021-09-30 2021-09-30 Emergency [facility] 1.2.840.114 90 [id number] Univers 13:31:00 16:34:00 Awilda Gary ISH 350.1.13.10 ity [facility] 4.2.7.2.686 [facility] [id number] [address] 2021-08-14 2021-08-14 Refill Gutierres, 1.2.840.1 [id number] 21 [id number] Methodi 00:00:00 00:00:[address] 3.430.2.7 Hospit a .3.902706 l .8 2021-08-12 2021-08-12 Refill Gutierres, 1.2.840.1 [id number] 21 [id number] Methodi 00:00:00 00:00:[address] 3.430.2.7 Hospit a .3.484132 l .8 2021-07-23 2021-07-23 Emergency X [facility] ERT [id number] 08 Univers 16:14:00 17:06:00 [facility] 2021-07-23 2021-07-23 Emergency [facility] 1.2.321.161 6379 5383 Univers 16:14:00 17:06:00 ISH 350.1.13.10 i ty [facility] 4.2.7.2.686 [facility] [id number] [address] 2021-07-23 2021-07-23 Emergency EM White, HCACL AERS [id number] [facility] 13:58:00 14:24:00 Burak [id number] [facility] 2021-07-23 2021-07-23 Emergency EM White, HCACL HCACL [id number] [facility] 13:58:00 14:24:00 Burak Calle [facility] 2021-07-10 2021-07-10 Telemedici Jony, 1.2.840.1 [id number] Methodi 08:30:00 09:02:51 ne Jessi 06896.1.[address] Andrea 3.430.2.7 Hospit a .3.820830 l .8 2021-07-09 2021-07-09 Travel 1.2.840.1 1.2.904.255 [id number] Methodi 00:00:00 00:00:[address] 3.430.2.7 0.2.7.3.698 Ho spita .3.305423 084.8 l .8 2021-06-13 2021-06-13 Outpatient [facility] [id number] [place] 00:00:00 00:00:[address] 2021-04-17 2021-04-17 Emergency E LOLITA [facility] 7515 16:40:00 19:42:00 [facility] 2021-03-30 2021-03-30 Emergency E SATURNINO [facility] 7514 BL 00:46:00 06:26:00 [facility] 2021-01-15 2021-01-15 Outpatient ITALIA Escobar OUTD [id number] [id number] [facility] 08:00:00 08:00:00 Rik [id number] [facility] 2021-01-09 2021-01-09 Emergency E LOLITA [facility] 7513 12:29:00 16:41:00 Giodarryl nagel [facility] 2020-12-26 2020-12-26 Emergency [facility] [id number] [place] [address] 00:00:00 00:00:[address] 2020-12-21 2020-12-22 Emergency [facility] 1.2.448.137 [id number] [facility] 22:42:00 02:02:00 Iza Guerrero 350.1.13.10 misty [place] 4.2.7.2.686 [facility] [phone] [facility] [address] 2020-12-21 2020-12-22 Emergency [facility] 1.2.615.648 [id number] 7932 22:42:00 02:02:00 Iza Avila Ish 350.1.13.10 [place] 4.2.7.2.686 [place] [id number] [facility] 2020-12-21 2020-12-21 Orders Doctor SUDHA 1.2.840.114 [id number] Univers 00:00:00 00:00:00 Only Unassigned, ALEM 350.1.13.10 ity of [place] [facility] 4.2.7.2.[address] [place] [address] [id number] 2020-12-21 2020-12-21 Orders Doctor SUDHA 1.2.840.114 [id number] 30 00:00:00 00:00:00 Only Unassigned, ALEM 350.1.13.10 Stanley [facility] 4.2.7.2.68 [id number] [facility] 2020-08-15 2020-08-19 Inpatient [facility] [id number] [facility] 14:57:00 06:49:15 [facility] 2020-08-15 2020-08-15 Emergency [facility] 1.2.798.233 [id number] Univers 03:26:00 06:17:00 Donta Guerrero 350.1.13.10 i ty of [place] 4.2.7.[address] [place] [id number] 2020-08-15 2020-08-15 Emergency [facility] E[facility] [id number] Univers 03:26:00 06:17:00 DONTA calixto [facility] 2020-08-15 2020-08-15 Emergency [facility] 1.2.614.197 [id number] 03:26:00 06:17:00 Donta Guerrero 350.1.13.10 [place] 4.2.7.[address] [place] [address] [id number] [facility] 2020-04-13 2020-04-13 Emergency [facility] 1.2.840.114 [id number] Univers 19:38:00 23:40:00 Awilda Guerrero 350.1.13.10 ity of [place] 4.2.7.2.[address] [place] [address] [id number] 2020-04-13 2020-04-13 Emergency Elisa, [facility] 1.2.840.114 [id number] 19:38:00 23:40:00 Awilda Guerrero 350.1.13.10 [place] 4.2.7.2.686 [place] [id number] 2020-04-13 2020-04-13 Orders Doctor HALEY 1.2.840.114 [id number] Univers 00:00:00 00:00:00 Only Unassigned, ALEM 350.1.13.10 ity of [facility] 4.2.7.2.686 Zay as [phone] [address] 2020-04-13 2020-04-13 Orders Doctor HALEY 1.2.840.114 [id number] 77 00:00:00 00:00:00 Only Unassigned, ALEM 350.1.13.10 [facility] 4.2.7.2.686 [id number] 2020-04-10 2020-04-10 Emergency Pope, [facility] 1.2.440.032 [id number] [facility] [place] 15:39:00 19:05:00 Bebo Guerrero 350.1.13.10 i ty of [place] 4.2.7.2.686 [facility] [phone] [address] 2020-04-10 2020-04-10 Emergency Pope, [facility] 1.2.855.983 [id number] 15:39:00 19:05:00 Bebo Guerrero 350.1.13.10 [place] 4.2.7.2.686 [place] [phone] [facility] 2020-04-10 2020-04-10 Orders Doctor HALEY 1.2.840.114 [id number] Univers 00:00:00 00:00:00 Only Unassigned, ALEM 350.1.13.10 ity of [facility] 4.2.7.2.686 Zay as [phone] [address] 2020-04-10 2020-04-10 Orders Doctor HALEY 1.2.840.114 [id number] 00:00:00 00:00:00 Only Unassigned, ALEM 350.1.13.10 [facility] 4.2.7.2.686 [id number] 009 2020-03-11 2020-03-11 [facility] Ob[facility] [id number] [place] 10:00:00 10:00:00 t; Gayatri HUSAIN and Quynh FOSTER Gynecology rubén HUSAIN M.D. [facility] 2020-02-28 2020-02-28 [facility] [id number] [place] 08:30:00 08:30:00 t; Gayatri HUSAIN ans ASHA, M.D. 2020-02-23 2020-02-23 [facility] [id number] [place] 11:00:00 11:00:00 t; Gayatri HUSAIN ans ASHA, M.D. 2020-02-16 2020-02-16 [facility] Obstetrics [id number] [place] 14:15:00 14:15:00 t; Yue ROCHA i, M.D. Gynecology Dinah Crawford M.D. Clinic 2020-02-15 2020-02-15 Emergency E AMELIE, MHSE MHSE 7510 20:06:00 21:19:00 [facility] [place] 2020-02-14 2020-02-14 [facility] Obst[facility] [id number] [place] 09:00:00 09:00:00 t; SAMIR MATAMOROS and Quynh DAWSON M.D. Gynecology rubén Mendi[facility] 2020-01-31 2020-01-31 Dusty AGRAWAL [facility] Obstetrics [id number] [place] 08:30:00 08:30:00 t; Yue WATKINS i, D.O. Gynecology [facility] 2019-12-20 2019-12-20 Dusty GOSS [facility] Orthopedics [id number] [place] 09:30:00 09:30:00 t; mayo CID M.D. Sports ans ASHTON, Medicine M.D. [facility] 2019-12-20 2019-12-20 [id number] 020 [place] 04:51:00 04:51:00 0415 [facility] 2019-12-18 2019-12-18 Emergency E TABBY, MHSE MHSE 7500 MH 20:54:00 21:40:00 DEBBIEMICHAEL nagel [facility] 2019-10-11 2019-10-12 Emergency X LAZARUS, [facility] ERT [id number] Univers 21:52:36 00:17:00 DONTA ity of [facility] 2019-10-11 2019-10-12 [facility] [place] 1.2.165.220 [id number] Univers 21:52:36 00:17:00 Donta Guerrero 350.1.13.10 i ty [facility] 4.2.7.2.686 [facility] [phone] [address] 2019-10-11 2019-10-12 Emergency [facility] [place] 1.2.892.624 [id number] 21:52:36 00:17:00 Donta Guerrero 350.1.13.10 [place] [address] [place] [address] [phone] [facility] 2019-10-11 2019-10-11 Orders Doctor SUDHA 1.2.840.114 [id number] Univers 00:00:00 00:00:00 Only Unassigned, ALEM 350.1.13.10 ity of [facility] 4.2.7.2.686 [facility] [phone] [address] 2019-10-11 2019-10-11 Orders Doctor SUDHA 1.2.840.114 [id number] 00:00:00 00:00:00 Only Unassigned, ALEM 350.1.13.10 [facility] 4.2.7.2.686 [id number] 009 2019-06-28 2019-06-28 Appointmen HUMERA, MARIBEL Obstetrics [id number] [place] 16:00:00 16:00:00 t; Jackie CAVANAUGH. and Ph ysici HUMERA, Gynecology Dinah Medina M.D. Clinic 2019-05-12 2019-05-12 Nurse Visit, Ang-Rmchp Nurse [facility] 1.2 .840.114 [id number] [facility] 10:44:42 12:05:57 Visit Perri Pérez IS ANALYST 350.1.13.10 ity of [facility]IONAL 4.2.7.2.686 Zay as MATERNAL [phone] [facility] ical & CHILD [address] [place] [address] 2019-05-12 2019-05-12 Nurse Visit, [facility] 1.2.840.114 [id number] 10:44:42 12:05:57 Visit [facility] IS ANALYST 350.1.13.10 Nurse REGIONAL 4.2.7.2.686 MATERNAL [phone] & CHILD [address] [place] [address] 2019-05-10 2019-05-10 Telephone [facility] 1.2.840.114 [id number] [facility] 00:00:00 00:00:00 Perri Olivier IS ANALYST 350.1.13.10 it y of [facility] 4.2.7.2.686 Zay as MATERNAL [phone] [facility] ical & CHILD [address] [place] [address] 2019-05-10 2019-05-10 Telephone [facility] 1.2.840.114 [id number] 00:00:00 00:00:00 Perri Olivier IS ANALYST 350.1.13.10 [facility] 4.2.7.2.686 MATERNAL [phone] & CHILD [address] [place] [address] 2019-04-03 2019-04-03 Patient ROBIN Mcfadden 1.2.840.114 [id number] [facility] 00:00:00 00:00:00 Secure Msg Ivet Y HEALTH 350.1.13.10 ity of [place] [phone] [address] 2019-04-03 2019-04-03 Patient Mcfadden, [facility] 1.2.840.114 [id number] 00:00:00 00:00:00 Secure Msg Ivet Y HEALTH 350.1.13.10 CLINICS 4.2.7.2.686 [phone] [facility] 2019-03-07 2019-03-07 Patient Doctor HALEY 1.2.840.114 [id number] Univers 00:00:00 00:00:00 Secure Msg Unassigned, ALEM 350.1.13.10 ity of [place] [facility] 4.2.7.2.686 Zay as [phone] [place] [address] [place] 2019-03-07 2019-03-07 Patient Doctor SUDHA [place].2.840.114 [id number] 20 00:00:00 00:00:00 Secure Msg Unassigned, ALEM 350.1.13.10 [place] [facility] 4.2.7.2.686 [phone] [facility] 2019-02-27 2019-02-27 Patient Doctor SUDHA [place].2.840.114 [id number] Univers 00:00:00 00:00:00 Secure Msg Unassigned, ALEM 350.1.13.10 ity of [place] [facility] 4.2.7.2.686 Zay as [phone] [place] [address] [place] 2019-02-27 2019-02-27 Patient Doctor SUDHA Johnston2.840.114 [id number] 00:00:00 00:00:00 Secure Msg Unassigned, ALEM 350.1.13.10 [place] [facility] 4.2.7.2.686 [id number] [facility] 2018-10-13 2018-10-13 MARIBEL Cui [facility] [id number] 058 [place] 14:30:00 14:30:00 t; Jennifer FINK i, M.D. ans JORDAN, M.D. 2018-09-07 2018-09-21 Outpatient [facility] [id number] 15:00:00 10:19:03 2018-09-07 2018-09-07 AppointMARIBEL Rae Survey Chief [id number] [place] 15:00:00 15:00:00 t; BONITA KRISHNA Phys ici KANDACE, M.D. ans M.D. Results Test Description Test Time Test Comments Results Result Comments Source TROPONIN I 2023-01-21 20:27:33 Test Item Value Reference Range Interpretation Comme nts TROPONIN I (test code = 4104097436) <=0.034 ANGI (test code = ANGI) Reference [...] biotin. Lab Interpretation (test code = Normal 42694-0) [facility] [id number] 20:18:51 Test Item Value Reference Range Interpretation Comments NA (test code = 132 mmol/L 135-145 L 7926572526) K (test code = 4.1 mmol/L 3.5-5.0 0295797253) CL (test code = 98 mmol/L 98-108 0061101711) CO2 TOTAL (test code = 26 mmol/L 23-31 5192083093) AGAP (test code = 8 2-16 0442130231) BUN (test code = 12 mg/dL 7-23 7729318811) GLUCOSE (test code = 79 mg/dL 70-110 1660789922) CREATININE (test code = 0.58 mg/dL 0.50-1.04 3927955562) TOTAL BILI (test code = 0.4 mg/dL 0.1-1.7 3048366890) CALCIUM (test code = 9.0 mg/dL 8.6-10.6 4358957949) T PROTEIN (test code = 7.4 g/dL 6.3-8.2 4884025640) ALBUMIN (test code = 4.5 g/dL 3.5-5.0 5796217925) ALK PHOS (test code = 62 U/L 34-122 7898651164) ALTv (test code = 23 U/L 5-35 1742-6) AST(SGOT) (test code = 31 U/L 13-40 3043403038) eGFR (test code = 122.1 mL/min/1.73m2 5935409210) ANGI (test code = ANGI) Association of [...] tests). Lab Interpretation Abnormal (test code = 10960-7) [facility], [id number] 20:18:51 Test Item Value Reference Range Interpretation Comments LIPASE (test code = 6361136247) 186 U/L 0-220 Lab Interpretation (test code = Normal 44624-4) [facility] with [id number] 19:39:40 Test Item Value Reference Range Interpretation Comments WBC (test code = 5.62 See_Comment [Automated 6755-2) message] The sy stem which generated this result transmitted reference range : 4.30 - 11.10 10*3/?L. The reference range was not used to interpret this result as normal/abnormal . RBC (test code = 4.24 See_Comment [Automated 006-7) message] The sy stem which generated this [...] RDW-SD (test code = 44.1 fL 39.0-49.9 72719-3) RDW-CV (test code = 13.2 % 12.0-15.5 788-0) PLT (test code = 277 See_Comment [Automated 777-3) message] The sy stem which generated this result transmitted reference range : 166 - 358 10*3/ ?L. The reference r dagoberto was not used to interpret this result as normal/abnormal . MPV (test code = 8.5 fL 9.5-12.9 L 81055-7) NRBC/100 WBC (test 0.0 See_Comment [Automat ed code = 0350370327) message] The system which generated this result transmitted reference range : 0.0 - 10.0 /100 WBCs. The refer ence range was not u sed to interpret th is result as normal/abnormal . NRBC x10^3 (test code See_Comment [Auto mated = 5528927743) message] The s ystem which generated this result transmitted reference range : 10*3/?L. The reference range was not used to interpret this result as normal/abnormal . GRAN MAT (NEUT) % 46.4 % (test code = 770-8) IMM GRAN % (test code 0.90 % = 9105768499) LYMPH % (test code = 38.6 % 736-9) MONO % (test code = 12.5 % 5905-5) EOS % (test code = 0.7 % 713-8) BASO % (test code = 0.9 % 706-2) GRAN MAT x10^3(ANC) 2.61 10*3/uL 1.88-7.09 (test code = 7966315208) IMM GRAN x10^3 (test 0.05 10*3/uL 0.00-0.06 code = 5237811976) LYMPH x10^3 (test code 2.17 10*3/uL 1.32-3.29 = 731-0) MONO x10^3 (test code 0.70 10*3/uL 0.33-0.92 = 742-7) EOS x10^3 (test code = 0.04 10*3/uL 0.03-0.39 711-2) BASO x10^3 (test code 0.05 10*3/uL 0.01-0.07 = 704-7) Lab Interpretation Abnormal (test code = 41782-1) [facility] [id number] 19:34:00 Test Item Value Reference Range Interpretation Comments POCT PREG (test code = 1605) Negative On board controls acceptable with Yes C Line (test code = 3574) POCT PREG LOT # (test code = 3575) [id number] POCT PREG TEST DATE (test 04/13/2024 code = 3576) Lab Interpretation (test code = Normal 98871-4) [facility]. METABOLIC PANEL (06454)2023-01-15 15:36:17 Test Item Value Reference Range Interpretation Comments NA (test code = 139 mmol/L 135-145 3013524836) K (test code = 4.7 mmol/L 3.5-5.0 9831349120) CL (test code = 103 mmol/L 98-108 2498529110) CO2 TOTAL (test code 28 mmol/L 23-31 = 7105255597) AGAP (test code = 8 2-16 8940285517) BUN (test code = 14 mg/dL 7-23 5191824486) GLUCOSE (test code = 75 mg/dL 70-110 3494793920) CREATININE (test code 0.72 mg/dL 0.50-1.04 = 7828849886) TOTAL BILI (test code 0.4 mg/dL 0.1-1.1 = 4182116916) CALCIUM (test code = 9.4 mg/dL 8.6-10.6 5781607264) T PROTEIN (test code 7.4 g/dL 6.3-8.2 = 2105705224) ALBUMIN (test code = 4.5 g/dL 3.5-5.0 0975916323) ALK PHOS (test code = 58 U/L 34-122 5664196076) ALTv (test code = 22 U/L 5-35 1742-6) AST(SGOT) (test code 24 U/L 13-40 = 2948382468) eGFR (test code = 95.1 mL/min/1.73m2 0855929225) ANGI (test code = ANGI) Association of [...] or urine or abnormalities in imaging tests). [facility] 15:36:17 Test Item Value Reference Range Interpretation Comments LIPASE (test code = 4674037134) 93 U/L 0-220 Lab Interpretation (test code = Normal 31252-4) [facility] WITH [id number] 15:19:14 Test Item Value Reference Range Interpretation Comments WBC (test code = 7.99 See_Comment [Automated 5590-2) message] The sy stem which generated this [...] RDW-SD (test code = 42.5 fL 39.0-49.9 86438-0) RDW-CV (test code = 12.9 % 12.0-15.5 788-0) PLT (test code = 317 See_Comment [Automated 777-3) message] The sy stem which generated this result transmitted reference range : 166 - 358 10*3/ ?L. The reference r dagoberto was not used to interpret this result as normal/abnormal . MPV (test code = 8.8 fL 9.5-12.9 L 04982-8) NRBC/100 WBC (test 0.0 See_Comment [Automat ed code = 2808285669) message] The system which generated this result transmitted reference range : 0.0 - 10.0 /100 WBCs. The refer ence range was not u sed to interpret th is result as normal/abnormal . NRBC x10^3 (test code See_Comment [Auto mated = 5301914066) message] The s ystem which generated this result transmitted reference range : 10*3/?L. The reference range was not used to interpret this result as normal/abnormal . GRAN MAT (NEUT) % 55.7 % (test code = 770-8) IMM GRAN % (test code 0.30 % = 6456318569) LYMPH % (test code = 34.0 % 736-9) MONO % (test code = 8.1 % 5905-5) EOS % (test code = 1.0 % 713-8) BASO % (test code = 0.9 % 706-2) GRAN MAT x10^3(ANC) 4.45 10*3/uL 1.88-7.09 (test code = 3269871805) IMM GRAN x10^3 (test 0.00-0.06 code = 0585746743) LYMPH x10^3 (test code 2.72 10*3/uL 1.32-3.29 = 731-0) MONO x10^3 (test code 0.65 10*3/uL 0.33-0.92 = 742-7) EOS x10^3 (test code = 0.08 10*3/uL 0.03-0.39 711-2) BASO x10^3 (test code 0.07 10*3/uL 0.01-0.07 = 704-7) Lab Interpretation Abnormal (test code = 88340-5) [facility] [id number] 16:38:09 Test Item Value Reference Range Interpretation Comments POCT Creatinine (test code = 0.7 mg/dL 0.5-1.3 8856544461) Lab Interpretation (test code = Normal 28458-9) [facility] STIMULATING [id number] 17:16:01 Test Item Value Reference Range Interpretation Comments TSH (test code = 3.96 See_Comment [Automated message] 1410015211) The system [employer] generated this result transmitted ref erence range: 0.45 - 4 .70 mIU/L. The refe rence range was not u sed to interpret this result as normal/abnor mal. Lab Interpretation (test Normal code = 06171-3) [facility]-[id number] 11:33:33 Test Item Value Reference Interpretation Comments Range D-DIMER (test code = See_Comment [Autom ated 0096474267) message] The system which generated this result [...] diagnosis. Lab Interpretation Normal (test code = 41395-3) [facility] [id number] 10:57:27 Test Item Value Reference Range Interpretation Comments TROPONIN I (test code = 0.012 ng/mL <=0.034 9288592829) ANGI (test code = ANGI) Reference (Normal) [...] biotin. Lab Interpretation Normal (test code = 72910-8) [facility] [id number] 09:04:18 Test Item Value Reference Range Interpretation Comments TROPONIN I (test code = 0.010 ng/mL <=0.034 4969823086) ANGI (test code = ANGI) Reference (Normal) [...] biotin. Lab Interpretation Normal (test code = 19020-8) [facility] WITH [id number] 09:03:38 Test Item Value Reference Range Interpretation Comments WBC (test code = 10.76 See_Comment [Automated 6690-2) message] The sy stem [...] (test code = 36.7 fL 39.0-49.9 L 59058-3) RDW-CV (test code = 11.6 % 12.0-15.5 L 788-0) PLT (test code = 317 See_Comment [Automated 777-3) message] The sy stem which generated this result transmitted reference range : 166 - 358 10*3/ ?L. The reference r dagoberto was not used to interpret this result as normal/abnormal . MPV (test code = 8.8 fL 9.5-12.9 L 20294-4) NRBC/100 WBC (test 0.0 See_Comment [Automat ed code = 0329831620) message] The system which generated this result transmitted reference range : 0.0 - 10.0 /100 WBCs. The refer ence range was not u sed to interpret th is result as normal/abnormal . NRBC x10^3 (test code See_Comment [Auto mated = 9589049937) message] The s ystem which generated this result transmitted reference range : 10*3/?L. The reference range was not used to interpret this result as normal/abnormal . GRAN MAT (NEUT) % 49.3 % (test code = 770-8) IMM GRAN % (test code 0.50 % = 4445904385) LYMPH % (test code = 42.6 % 736-9) MONO % (test code = 6.3 % 5905-5) EOS % (test code = 0.6 % 713-8) BASO % (test code = 0.7 % 706-2) GRAN MAT x10^3(ANC) 5.32 10*3/uL 1.88-7.09 (test code = 8991419874) IMM GRAN x10^3 (test 0.05 10*3/uL 0.00-0.06 code = 4360432307) LYMPH x10^3 (test code 4.58 10*3/uL 1.32-3.29 H = 731-0) MONO x10^3 (test code 0.68 10*3/uL 0.33-0.92 = 742-7) EOS x10^3 (test code = 0.06 10*3/uL 0.03-0.39 711-2) BASO x10^3 (test code 0.07 10*3/uL 0.01-0.07 = 704-7) Lab Interpretation Abnormal (test code = 26042-5) [facility]. METABOLIC PANEL (55823)2022-12-14 08:52:54 Test Item Value Reference Range Interpretation Comments NA (test code = 137 mmol/L 135-145 6006805516) K (test code = 3.9 mmol/L 3.5-5.0 6196088428) CL (test code = 103 mmol/L 98-108 1507722364) CO2 TOTAL (test code 25 mmol/L 23-31 = 4933267506) AGAP (test code = 9 2-16 3363487918) BUN (test code = 14 mg/dL 7-23 8037029078) GLUCOSE (test code = 88 mg/dL 70-110 4491146971) CREATININE (test code 0.69 mg/dL 0.50-1.04 = 2169663691) TOTAL BILI (test code 0.4 mg/dL 0.1-1.1 = 4945429947) CALCIUM (test code = 9.5 mg/dL 8.6-10.6 3762566746) T PROTEIN (test code 7.8 g/dL 6.3-8.2 = 0143638215) ALBUMIN (test code = 4.9 g/dL 3.5-5.0 2100898508) ALK PHOS (test code = 59 U/L 34-122 1452700417) ALTv (test code = 19 U/L 5-35 1742-6) AST(SGOT) (test code 23 U/L 13-40 = 5651621232) eGFR (test code = 99.9 mL/min/1.73m2 7588506406) ANGI (test code = ANGI) Association of [...] or urine or abnormalities in imaging tests). [facility] 08:52:34 Test Item Value Reference Range Interpretation Comments LIPASE (test code = 7079441137) 70 U/L 0-220 Lab Interpretation (test code = Normal 37654-0) [facility]-[id number] 15:45:47 Test Item Value Reference Interpretation Comments Range D-DIMER (test code = See_Comment [Autom ated 6702722392) message] The system which generated this result [...] diagnosis. Lab Interpretation Normal (test code = 58798-9) [facility], [id number] 15:07:51 Test Item Value Reference Range Interpretation Comments PREG SERUM (test code Negative = 9321442181) ANGI (test code = ANGI) Less than 10 IU/L. ?If low titer or ectopic is suspected, resubmit specimen in 48-72 hours. [facility] METABOLIC PANEL (93505)2022-11-03 15:05:35 Test Item Value Reference Range Interpretation Comments NA (test code = 138 mmol/L 135-145 3171024391) K (test code = 4.4 mmol/L 3.5-5.0 9452452895) CL (test code = 104 mmol/L 98-108 8645307633) CO2 TOTAL (test code = 25 mmol/L 23-31 5268418812) AGAP (test code = 9 2-16 5853605084) BUN (test code = 8 mg/dL 7-23 7708256084) GLUCOSE (test code = 100 mg/dL 70-110 6654887044) CREATININE (test code = 0.68 mg/dL 0.50-1.04 4308769554) TOTAL BILI (test code = 0.6 mg/dL 0.1-1.2 2105685686) CALCIUM (test code = 9.3 mg/dL 8.6-10.6 1545031720) T PROTEIN (test code = 8.2 g/dL 6.3-8.2 2704267042) ALBUMIN (test code = 5.1 g/dL 3.5-5.0 H 4689051258) ALK PHOS (test code = 57 U/L 34-122 3570065882) ALTv (test code = 21 U/L 5-35 1742-6) AST(SGOT) (test code = 29 U/L 13-40 8426244025) eGFR (test code = 101.6 mL/min/1.73m2 6402719185) ANGI (test code = ANGI) Association of [...] tests). Lab Interpretation Abnormal (test code = 47068-6) [facility] WITH [id number] 14:50:54 Test Item Value Reference Range Interpretation [...] (test code = 36.4 fL 39.0-49.9 L 59229-2) RDW-CV (test code = 11.2 % 12.0-15.5 L 788-0) PLT (test code = 384 See_Comment H [Automated 777-3) message] The sy stem which generated this result transmitted reference range : 166 - 358 10*3/ ?L. The reference r dagoberto was not used to interpret this result as normal/abnormal . MPV (test code = 8.4 fL 9.5-12.9 L 02744-0) NRBC/100 WBC (test 0.0 See_Comment [Automat ed code = 3844246896) message] The system which generated this result transmitted reference range : 0.0 - 10.0 /100 WBCs. The refer ence range was not u sed to interpret th is result as normal/abnormal . NRBC x10^3 (test code See_Comment [Auto mated = 8982939261) message] The s ystem which generated this result transmitted reference range : 10*3/?L. The reference range was not used to interpret this result as normal/abnormal . GRAN MAT (NEUT) % 47.0 % (test code = 770-8) IMM GRAN % (test code 0.20 % = 9406442090) LYMPH % (test code = 44.0 % 736-9) MONO % (test code = 6.6 % 5905-5) EOS % (test code = 1.1 % 713-8) BASO % (test code = 1.1 % 706-2) GRAN MAT x10^3(ANC) 3.87 10*3/uL 1.88-7.09 (test code = 0912707370) IMM GRAN x10^3 (test 0.00-0.06 code = 4524861909) LYMPH x10^3 (test code 3.62 10*3/uL 1.32-3.29 H = 731-0) MONO x10^3 (test code 0.54 10*3/uL 0.33-0.92 = 742-7) EOS x10^3 (test code = 0.09 10*3/uL 0.03-0.39 711-2) BASO x10^3 (test code 0.09 10*3/uL 0.01-0.07 H = 704-7) Lab Interpretation Abnormal (test code = 96897-2) [facility] 16:49:00 Test Item Value Reference Range Interpretation Comments SURGICAL (test code = SR) R UN DATE: 08/10/22 [facility] PAGE 1 RUN TIME: 1649 Specimen Inquiry RUN USER: INTERFACE P ATIENT: LONA MARIE LOC: [place] #: [id number] AGE/SX: 32/F ROOM: [facility] RE08/07/22REG DR: Gianna Tyler MD : 92 BED: A DIS: 08/08/22 STATUS: DIS Keira TLOC: SPEC #: [id number] RECD: 08/07/22 STATUS: SOUT REQ #: [id number] LAURYN: 08/07/[address] [facility] [address]: Gianna Tyelr MD ENTERED: 08/07/22 SP TYPE: SURGICAL OTHR DR: No Primary or Family PhysicianORDERED: ANATOMIC SPEC/4, SPEC TRACK, 71854/4 COPIES TO: No Primary or Family Physician Gianna Tyler MD [address] [place] [address], [address] [address] PROCEDURES: 96052 (08/07/22) TISSUES: A. BREAST, EXCISION OF DISCRETE [...] Inquiry RUN USER: INTERFACE S PEC #: [id number] PATIENT: LONA MARIE #[id number] (Continued) GROSS DESCRIPTION (Continued) Ink code: [place]-duct surface; black-remainder of the specimen. B. Received in formalin labeled with Patient's name, [facility] IM and "right breast upper innerquadrant mass"; consists [...] Fragment 3.XZ 08/07/22 [facility] [address] , [place] [address] Unless gross only, the diagnosis is based [...] 08/10/22 1649 END OF REPORT CBC W/AUTO [id number] 14:24:00 Test Item Value Reference Range Interpretation [...] NORMAL NORMAL code = PLTMR) UR HCG [id number] 18:52:00 Test Item Value Reference Range Interpretation Comments UR HCG QUAL (test code = HCGQLU) NEGATIVE NEGATIVE SURGICAL [id number] 08:42:00 Test Item Value Reference Range Interpretation Comments SURGICAL SPECIMENS (test code = SURG) --------RUN DATE: 12/31/20 [facility] - LAB PAGE 1 RUN TIME: 841 Specimen Inquiry RUN USER: INTERFACE --------PATIENT: LONA MARIE LOC: [facility] U #: [id number] AGE/SX: 30/F ROOM: [facility] RE12/26/20REG DR: Olegario Srivastava MD : 89 BED: 02 DIS: 12/26/20 STATUS: DIS Keira TLOC: -------- SPEC #: [id number] RECD: 12/26/20 STATUS: MIKI MAI #: [id number] LAURYN: 12/26/[address] [facility] [address]: Olegario Srivastava MD ENTERED: 12/26/20 [...] and its performance characteristics determined by the [facility]. It has not been cleared or approved by the [place] Food and Drug Administration. The FDA has determined that such clearance or approval is not necessary. The test is used for clinical purposes. It should not be regarded as investigational or for research. [facility] is certified under CLIA-88 [...] CONTINUED ON NEXT PAGE --------RUN DATE: 12/31/20 [facility] - LAB PAGE 2 RUN TIME: 841 Specimen Inquiry RUN USER: INTERFACE --------SPEC #: [id number] PATIENT: CYNTHIALONA LEEN #[id number] (Continued) FINAL DIAGNOSIS (Continued) C. STOMACH, FUNDUS, BIOPSY: - OXYNTIC MUCOSA WITH REACTIVE GASTROPATHY - NEGATIVE FOR HELICOBACTER PYLORI BY IMMUNOHISTOCHEMISTRY - NO INTESTINAL METAPLASIA, DYSPLASIA, OR MALIGNANCY IS IDENTIFIED CPT: 10801 x3, 12335 x3 GROSS DESCRIPTION Received are three containers [...] -------- END OF REPORT COVID Asymptomatic IH [id number] 10:52:00 Test Item Value Reference Interpretation Comments [...] This test was p erformed using the Noomeo TM COVID-19 PCRassay. This test was developed and i ts performancechar acteristics were determined by [facility]. Thi s test has notbeen [...] setting? Unknown? UnknownAge at collection: YBASIC METABOLIC [id number] 21:38:00 Test Item Value Reference Range Interpretation [...] CA) Reference Range Oct 2020 LIVER FUNCTION [id number] 21:38:00 Test Item Value Reference Range Interpretation [...] code = ALKP) Reference Range Oct 2020 [id number] 21:38:00 Test Item Value Reference Range Interpretation Comments LIPASE (test code = 32 U/L 12-53 N Please n ote: New LIP) Reference Range Oct 2020 CBC W/AUTO [id number] 21:24:00 Test Item Value Reference Range Interpretation [...] BA#) 0.05 x10 3/uL 0.0-0.20 N PROTHROMBIN [id number] 21:22:00 Test Item Value Reference Range Interpretation [...] 2.5-3.5recurren t systemic emboli sm. BASIC METABOLIC [id number] 23:38:00 Test Item Value Reference Range Interpretation [...] CA) Reference Range Oct 2020 LIVER FUNCTION [id number] 23:38:00 Test Item Value Reference Range Interpretation [...] code = ALKP) Reference Range Oct 2020 [id number] 23:38:00 Test Item Value Reference Range Interpretation Comments LIPASE (test code = 37 U/L 12-53 N Please n ote: New LIP) Reference Range Oct 2020 UA RFLX MICR CULT IF [id number] 23:10:00 Test Item Value Reference Range Interpretation [...] Indication for culture: RiskForSepsis-no oth srcUR HCG [id number] 23:10:00 Test Item Value Reference Range Interpretation [...] Indication for culture: RiskForSepsis-no oth srcUR HCG [id number] 23:08:00 Test Item Value Reference Range Interpretation Comments UR HCG QUAL (test code = HCGQLU) NEGATIVE Indication for culture: RiskForSepsis-no oth srcCBC W/AUTO [id number] 23:04:00 Test Item Value Reference Range Interpretation [...] BA#) 0.07 x10 3/uL 0.0-0.20 N SURGICAL [id number] 12:44:00 Test Item Value Reference Range Interpretation Comments SURGICAL SPECIMENS (test code = SURG) RUN DATE: 08/27/20 [facility] - LAB PAGE 1 RUN TIME: 1244 Specimen Inquiry RUN USER: INTERFACE PATIENT: LONA MARIE LOC: Imelda7S POD B U #: [id number] AGE/SX: 30/F ROOM: [facility] RE08/23/20REG DR: Olegario Srivastava MD : [birth year] BED: 1 DIS: 08/25/20 STATUS: DIS Keira TLOC: SPEC #: [id number] RECD: 08/23/20 STATUS: MIKI RENorma #: [id number] LAURYN: 08/23/[address] [facility] [address]: Olegario Srivastava MD ENTERED: 08/23/20 [...] METAPLASIA -NO HELICOBACTER PYLORI BY IMMUNOHISTOCHEMICAL STUDY 71492, 25851 GROSS DESCRIPTION Received in formalin labeled with the patient's name and "gastric antrum" are three tissue fragments of 0.1 to 0.2 cm, submitted in one cassette. CM/ta. Signed SIGNATURE ON FILE Wayne Andrews 08/27/20 1244 END OF REPORT UA RFLX MICR CULT IF [id number] 13:25:00 Test Item Value Reference Range Interpretation [...] Description: CLEAN CATCHUA RFLX MICR CULT IF [id number] 13:24:00 Test Item Value Reference Range Interpretation [...] culture: Suprapubic PainSpecimen Description: CLEAN CATCHBASIC METABOLIC [id number] 09:57:00 Test Item Value Reference Range Interpretation [...] mg/dL 8.8-10.2 N = CA) CBC W/AUTO [id number] 06:53:00 Test Item Value Reference Range Interpretation [...] x10 3/uL 0.0-0.20 N Novel Coronavirus 2019 [id number] 06:10:00 Test Item Value Reference Range Interpretation [...] melody gnosis of COVID-19 infect ion under nywinmw463(b)(1 ) of the Act, 21 U.S.C. 360bbb-3(b) [...] t in this assay.Performed At: [facility] [address] [id number] alessandra Wei MD [phone] BASIC METABOLIC [id number] 04:20:00 Test Item Value Reference Range Interpretation [...] code 9.1 mg/dL 8.8-10.2 N = CA) [id number] 04:20:00 Test Item Value Reference Range Interpretation Comments MAGNESIUM (test code = MAG) 1.9 mg/dL 1.4-2.6 N CBC W/AUTO [id number] 04:09:00 Test Item Value Reference Range Interpretation [...] 3/uL 0.0-0.20 N - CT ABD PELVIS [id number] 15:59:00 [facility] 1990 Sex: FPatient Name: LONA MARIE Unit No: [id number] EXAMS: CPT CODE: [id number] CT ABD PELVIS W/CONT 14951 Examination: Abdomen and pelvic CT with contrast [...] and adrenal glands appearnormal. Kidneys demonstrate uniform contrast- enhancement. Stomach is unremarkable. Caliber of the bowel [...] Dt/Tm: 08/23/2020 (1559) by:[email or web address] Printed Date/Time: 08/23/2020 (6868) Name: LONA MARIE [facility] Phys: Olegario Perrin MD [address] : 1990 Age: 30 Sex: [place] [address] Loc: P.ERMS 4 Exam Date: 08/23/2020 Status: ADM IN PH: FAX: PAGE 1 Signed ReportCoronavirus 2018 nCoV [id number] 12:44:00 Test Item Value Reference Range Interpretation Comments Coronavirus 2019 Negative Negative Negative re sults should be nCoV Bedside (test treated a s presumptive code = and, ifinconsis tent with [id number]) clinical signs and symptoms or nec essaryfor [...] signs andsymptoms consistent with COVID-19. BASIC METABOLIC [id number] 11:24:00 Test Item Value Reference Range Interpretation [...] mg/dL 8.8-10.2 N = CA) LIVER FUNCTION [id number] 11:24:00 Test Item Value Reference Range Interpretation [...] code = 77 U/L 32-104 N ALKP) [id number] 11:24:00 Test Item Value Reference Range Interpretation Comments LIPASE (test code = LIP) 18 U/L 0-190 N PROTHROMBIN [id number] 10:21:00 Test Item Value Reference Range Interpretation [...] 2.5-3.5recurren t systemic emboli sm. CBC W/AUTO [id number] 10:15:00 Test Item Value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 medication use. This was also noted on [facility]. At this point, [...] We gave her Pepcid and the night IS ANALYST hospitalist, Dr. Coelho, ordered an abdom inal [...] Pepcid or Prilosec over-the- counter. The patien t also reports having Zofran ODT at home, [...] DS:F.SKY/LORA/SUSANNA PATIENT NAME: LONA MARIE 139 Conf#: [id number]/DID#: [id number] Authenticated and Edited by Germania Tabor MD On 08/20/20 12:16:32 AM Electronically Signed by Germania Tabor MD on at 0018 PATIENT NAME: LONA MARIE 1139 2020-08-17 10:48:00-00:00 [id number] [facility] [address], [place] [address] PATIENT NAME: LONA MARIE ADMIT DATE: 08/15/20 ACCOUNT NO: [id number] ROOM NO: F.2660 AGE: 30 SEX: F ADMITTING PHYSICIAN: Zulay [...] home there and then presented to the [facility] Emergen cy Room for continued pain. [...] ASSESSMENT AND PLAN: Ms. Marie is a 30-year-ol d female with a history of pelvic pain [...] Tabor. Dictated By: Ashlie Lopez MD WT: CON:URMILA/HERSON./NTS Conf#: [id number]/DID#: [id number] Authenticated and Edited by Ashlie laurent MD On 08/21/20 10:46:17 AM Electronically Signed by Ashlie Lopez MD o n 08/21/20 at 1049 PATIENT NAME: LONA MARIE 139 2020-08-17 10:35:00-00:00 [facility] ([facility]) Clinical Note REPORT#:[id number] REPORT STATUS: Signed DATE:08/17/20 TIME: 1035 PATIENT: LONA MARIE UNIT #: [id number] [address] AGE: 30 SEX: F ATTEND: Austin Brooke MD ADM AUTHOR: Ashlie Lopez MD * ALL edits or amendments must be made on the el [employer]/computer document * Clinical Note Note: Pt seen [...] mostly in the pelvic region -nonsurgical abdomen #[id number] at 1048 RPT #:[id number] END OF REPORT 2020-08-16 21:47:00-00:00 [facility] ([facility]) Clinical Note REPORT#:[id number] REPORT STATUS: Signed DATE:08/16/20 TIME: 2146 PATIENT: LONA MARIE UNIT #: [id number] ROOM/BED: [facility]-A : 92 AGE: 30 SEX: F ATTEND: Austin Brooke MD ADM AUTHOR: Kaylah Coelho MD * ALL edits or amendments must be made on the el [employer]/computer document * Clinical Note Note: CTSP for [...] by Kaylah Coelho MD on 07/26 at 8776 RPT #:[id number] END OF REPORT 2020-08-16 12:35:00-00:00 [facility] ([facility]) Clinical Note REPORT#:[id number] REPORT STATUS: Signed DATE:08/16/20 TIME: 1235 PATIENT: LONA MARIE UNIT #: [id number] [facility] : 92 AGE: 30 SEX: F ATTEND: Austin Brooke MD ADM AUTHOR: Ghulam Cid III, MD * ALL edits or amendments must be made on the babbel/computer document * Clinical Note Note: OB /MOLD CAPPER Hospitalist Jose Roberto Consult Requesting physician Dr Germania Tabor Pelvic pain 30 year old white female [id number] S/P hysterect casandra CC Severe lower ab pelvic pain. HPI About 2 nights ago she h ad intercourse with her . She then developed severe lower ab pain that radiated to her upper abdome n. She became bloated. Claims to have had a near syncopal episode after intercourse. She was seen at [facility] in [place] earlier today. CT scan reported showing a [...] found for the bleeding. History of fibroids. MOLD CAPPER Treated for chlamydia, paps negative, fibro ids, [...] % (Auto) (14.3 - 34.3 %) 24.1 [place] % (Auto) (5.1 - 10.4 %) 8.3 Eos % (Auto) (0.1 - 3.0 %) 1.0 Baso % (Auto) (0.1 - 1.0 %) 0.6 Neut # (Auto) (K/mm3) 5.9 Lymph # (Auto) (K/mm3) 2.2 [place] # (Auto) (K/mm3) 0.7 Eos # (Auto) (K/mm3) 0.09 Baso # (Auto) (K/mm3) 0.1 Miscellaneous Maternal Serum HCG <1 Urines Urine Color (YELLOW) YELLOW Urine Appearance (CLEAR) CLEAR Urine pH (5 - 9) 5.0 Ur Specific [place] (1.001 - 1.035) >1.035 H Urine Protein [...] may be needed. Consideration of a social science research assistant consult if needed. I spoke with Dr Tabor. Electronically Signed by Ghulam Cid III, MD on 08/25 at 0106 RPT #:[id number] END OF REPORT 2020-08-16 09:18:00-00:00 [facility] ([facility]) Gynecology Progress Note REPORT#:[id number] REPORT STATUS: Signed DATE:08/16/20 TIME: 917 PATIENT: LONA MARIE UNIT #: [id number] ROOM/BED: Jeremías.2660-A : 92 AGE: 30 SEX: F ATTEND: Austin Brooke MD ADM AUTHOR: Germania Tabor MD * ALL edits or amendments must be made on the babbel/computer document * Subjective Chief Complaint: PAIN, COULDN'T [...] S he states it was done at [place]. She claims to not r emember the surgeon's name. She states she only saw her 3 times, and was sent ho me the day of surgery. Sht states she did not follow -up for her postop visit, but went [facility] 1-2 weeks later for bloating. She was told she had some fluid in her abdomen, but everything else seemed fine, "and they sent me home with only 10 hydrocodone." She has some papers in her personal belongins ba frankie--from an [place] or [facility] visit yesterday. The CT with contrast [...] % (Auto) (14.3 - 34.3 %) 24.1 [place] % (Auto) (5.1 - 10.4 %) 8.3 Eos % (Auto) (0.1 - 3.0 %) 1.0 Baso % (Auto) (0.1 - 1.0 %) 0.6 Neut # (Auto) (K/mm3) 5.9 Lymph # (Auto) (K/mm3) 2.2 [place] # (Auto) (K/mm3) 0.7 Eos # (Auto) (K/mm3) 0.09 Baso # (Auto) (K/mm3) 0.1 Laboratory Tests 08/15 1535 Miscellaneous Maternal Serum HCG <1 Laboratory Tests 08/15 1635 Urines Urine Color (YELLOW) YELLOW Urine Appearance (CLEAR) CLEAR Urine pH (5 - 9) 5.0 Ur Specific [place] (1.001 - 1.035) >1.035 H Urine Protein [...] Impression By: [email or web address] - Rubin Hairston MD Diagnosis, Assessment Plan Problem List/A [...] We could try to get Ct from [facility] to be courired here--I will see sbout requesting. I had the patient sign records to try to get a better idea of prior surgeries. Electronically Signed by Germania Tabor MD on 07/26 at 0933 RPT #:[id number] END OF REPORT 2020-08-16 09:18:00-00:00 [facility] ([facility]) Gynecology Progress Note REPORT#:[id number] REPORT STATUS: Signed DATE:08/16/20 TIME: 917 PATIENT: LONA MARIE UNIT #: [id number] ROOM/BED: [address] : 92 AGE: 30 SEX: F ATTEND: Austin Brooke MD ADM AUTHOR: Germania Tabor MD * ALL edits or amendments must be made on the babbel/computer document * See Addendum Subjective Chief Complaint: [...] S he states it was done at [place]. She claims to not r emember the surgeon's name. She states she only saw her 3 times, and was sent ho me the day of surgery. Sht states she did not follow -up for her postop visit, but went [facility] an [facility] 1-2 weeks later for bloating. She was told she had some fluid in her abdomen, but everything else seemed fine, "and they sent me home with only 10 hydrocodone." She has some papers in her personal belongins arun david--from an [place] or [facility] visit yesterday. The CT with contrast [...] dietitian's assessment. Any exceptions have been noted unde r Provider comments. BMI Calculated: 28.4 Nutrition related [...] % (Auto) (14.3 - 34.3 %) 24.1 [place] % (Auto) (5.1 - 10.4 %) 8.3 Eos % (Auto) (0.1 - 3.0 %) 1.0 Baso % (Auto) (0.1 - 1.0 %) 0.6 Neut # (Auto) (K/mm3) 5.9 Lymph # (Auto) (K/mm3) 2.2 [place] # (Auto) (K/mm3) 0.7 Eos # (Auto) (K/mm3) 0.09 Baso # (Auto) (K/mm3) 0.1 Laboratory Tests 08/15 1535 Miscellaneous Maternal Serum HCG <1 Laboratory Tests 08/15 1635 Urines Urine Color (YELLOW) YELLOW Urine Appearance (CLEAR) CLEAR Urine pH (5 - 9) 5.0 Ur Specific [place] (1.001 - 1.035) >1.035 H Urine Protein [...] We could try to get Ct from [facility] to be courired here--I will see sbout requesting. I had the patient sign records to try to get a better idea of prior surgeries. Electronically Signed by Germania Tabor MD on 07/26 at 0933 Addendum 1: 08/16/20 1109 by Germania Tabor MD I looked up the patient's [facility] Aware report with >20 fills for narcotics going back to about 2018. Th ey seem to be in clusters, for a few months she will fill narcotics--even sometim es days apart, and then there will be a gap of a few months. I have sent the release of r ecords to [place] w/o response yet. I then went back to ask the patient if I could also send to [facility], but she said she's not had anything done at [facility] this y ear, only their ER in [place]. I also asked if she would sign [...] second oppinion . I spoke to our special inspector who is out of to wn, but recommended that the other hospitalist see the patient. I have contac uche him. Electronically Signed by Germania Tabor MD on 07/26 at 1123 RPT #:[id number] END OF REPORT 2020-08-16 09:18:00-00:00 [facility] ([facility]) Gynecology Progress Note REPORT#:[id number] REPORT STATUS: Signed DATE:08/16/20 TIME: 917 PATIENT: LONA MARIE UNIT #: [id number] [address] AGE: 30 SEX: F ATTEND: Austin Brooke MD ADM AUTHOR: Germania Tabor MD * ALL edits or amendments must be made on the babbel/computer document * See Addendum Subjective Chief Complaint: [...] S he states it was done at [place]. She claims to not r emember the surgeon's name. She states she only saw her 3 times, and was sent ho me the day of surgery. Sht states she did not follow -up for her postop visit, but [facility]. She was told she had some fluid in her abdomen, but everything else seemed fine, "and they sent me home with only 10 hydrocodone." She has some papers in her personal belongins arun david--from an [place] or [facility] visit yesterday. The CT with contrast [...] dose of Morhine. The patient also requests Sundaran for vo miting. Objective General VS/I O: [...] % (Auto) (14.3 - 34.3 %) 24.1 [place] % (Auto) (5.1 - 10.4 %) 8.3 Eos % (Auto) (0.1 - 3.0 %) 1.0 Baso % (Auto) (0.1 - 1.0 %) 0.6 Neut # (Auto) (K/mm3) 5.9 Lymph # (Auto) (K/mm3) 2.2 [place] # (Auto) (K/mm3) 0.7 Eos # (Auto) (K/mm3) 0.09 Baso # (Auto) (K/mm3) 0.1 Laboratory Tests 08/15 1535 Miscellaneous Maternal Serum HCG <1 Laboratory Tests 08/15 1635 Urines Urine Color (YELLOW) YELLOW Urine Appearance (CLEAR) CLEAR Urine pH (5 - 9) 5.0 Ur Specific [place] (1.001 - 1.035) >1.035 H Urine Protein [...] u/s or CT, so it is less l ikely. U/S shows small amount of free fluid in [...] We could try to get Ct from [facility] to be courired here--I will see sbout requesting. I had the patient sign records to try to get a better idea of prior surgeries. Electronically Signed by Germania Tabor MD on 07/26 at 0933 Addendum 1: 08/16/20 1109 by Germania Tabor MD I looked up the patient's [facility] Aware report with >20 fills for narcotics [...] patient if I could also send to [facility], but she said she's not had anything done at [facility] this y ear, only their ER in [place]. I also asked if she would sign to get the CD of her CT couried here- -as recommended by radiology. The patient refused and jose maria rocha irate with me, stating that I do [...] second oppinion . I spoke to our special inspector who is out of to wn, but [...] told me, Dr. Perkins, a doctor at [facility] who did her l aparoscopy, "messed [...] Tabor MD on 07/26 at 1507 RPT #:[id number] END OF REPORT 2020-08-16 09:18:00-00:00 [facility] ([facility]) Gynecology Progress Note REPORT#:[id number] REPORT STATUS: Signed DATE:08/16/20 TIME: 917 PATIENT: LONA MARIE UNIT #: [id number] ROOM/BED: [address] : 92 AGE: 30 SEX: F ATTEND: Austin Brooke MD ADM AUTHOR: Germania Tabor MD * ALL edits or amendments must be made on the [employer]bel/computer document * See Addendum Subjective Chief Complaint: [...] S he states it was done at [place]. She claims to not r emember the surgeon's name. She states she only saw her 3 times, and was sent ho me the day of surgery. Sht states she did not follow -up for her postop visit, but [facility]. She was told she had some fluid in her abdomen, but everything else seemed fine, "and they sent me home with only 10 hydrocodone." She has some papers in her personal belongins arun david--from an [place] or [facility] visit yesterday. The CT with contrast [...] dose of Morhine. The patient also requests Sundaran for vo miting. Objective General VS/I O: [...] % (Auto) (14.3 - 34.3 %) 24.1 [place] % (Auto) (5.1 - 10.4 %) 8.3 Eos % (Auto) (0.1 - 3.0 %) 1.0 Baso % (Auto) (0.1 - 1.0 %) 0.6 Neut # (Auto) (K/mm3) 5.9 Lymph # (Auto) (K/mm3) 2.2 [place] # (Auto) (K/mm3) 0.7 Eos # (Auto) (K/mm3) 0.09 Baso # (Auto) (K/mm3) 0.1 Laboratory Tests 08/15 1535 Miscellaneous Maternal Serum HCG <1 Laboratory Tests 08/15 1635 Urines Urine Color (YELLOW) YELLOW Urine Appearance (CLEAR) CLEAR Urine pH (5 - 9) 5.0 Ur Specific [place] (1.001 - 1.035) >1.035 H Urine Protein [...] We could try to get Ct from [facility] to be courired here--I will see sbout requesting. I had the patient sign records to try to get a better idea of prior surgeries. Electronically Signed by Germania Tabor MD on 07/26 at 0933 Addendum 1: 08/16/20 1109 by Germania Tabor MD I looked up the patient's [facility] Aware report with >20 fills for narcotics [...] patient if I could also send to [facility], but she said she's not had anything done at [facility] this y ear, only their ER in [place]. I also asked if she would sign to get the CD of her CT couried here- -as recommended by radiology. The patient refused and jose maria rocha irate with me, stating that I do [...] second oppinion . I spoke to our special inspector who is out of to wn, but [...] told me, Dr. Perkins, a doctor at [facility] who did her l aparoscopy, "messed [...] by Germania Tabor MD on 07/26 at 1523 RPT #:[id number] END OF REPORT 2020-08-15 23:15:00-00:00 [facility] ([facility]) MOLD CAPPER Admission H P REPORT#:[id number] REPORT STATUS: Signed DATE:08/15/20 TIME: 2314 PATIENT: LONA MARIE UNIT #: [id number] ROOM/BED: 2660-A : 92 AGE: 30 SEX: F ATTEND: Austin Brooke MD ADM AUTHOR: Zulay Brooke MD * ALL edits or amendments must be made on the el [employer]/computer document * History of Present Illness Chief [...] ameliorating or exacerbating factors. She went to [facility] and received IV pain meds without relief. They were going to admit her for pain control, but she declined. S he went home and the pain became unbearable, so she came to [facility]. Of note, she is s/p hysterectomy in [...] full range of motion, normal in spection Neuro/CARDROOM HAND: alert, oriented X 3 Psychiatry: normal affect, [...] % (Auto) (14.3 - 34.3 %) 24.1 [place] % (Auto) (5.1 - 10.4 %) 8.3 Eos % (Auto) (0.1 - 3.0 %) 1.0 Baso % (Auto) (0.1 - 1.0 %) 0.6 Neut # (Auto) (K/mm3) 5.9 Lymph # (Auto) (K/mm3) 2.2 [place] # (Auto) (K/mm3) 0.7 Eos # (Auto) (K/mm3) 0.09 Baso # (Auto) (K/mm3) 0.1 Miscellaneous Maternal Serum HCG <1 Urines Urine Color (YELLOW) YELLOW Urine Appearance (CLEAR) CLEAR Urine pH (5 - 9) 5.0 Ur Specific [place] (1.001 - 1.035) >1.035 H Urine Protein [...] Impression By: [email or web address] - Rubin Hairston MD Diagnosis, Assessment Plan Free Text [...] Zulay Brooke MD on at 0656 RPT #:[id number] END OF REPORT 2020-08-15 15:05:00-00:00 [facility] ([facility]) EMERGENCY PROVIDER REPORT REPORT#:[id number] REPORT STATUS: Signed DATE:08/15/20 TIME: 1504 PATIENT: LONA MARIE UNIT #: [id number] ROOM/BED: [address] AGE: 30 SEX: F PCP PHYS: Zulay Brooke MD SERVICE AUTHOR: Andressa Razo MD * ALL edits or amendments must be made on the babbel/computer document * See Addendum Andressa Razo I [...] 08/15 2011 DC r 10 IV 08/15 Hydromorphone HCl 0.5 MG X1ED STA 08/15 184 DC r 08/15 IV 08/15 1844 1904 [...] STA 08/15 1503 DC 12/ 10 IV 12/10 1504 [facility]: HPI-General Illness Free Text HPI [...] of vomiting dark content, patient went to [facility] ER and she got CT abdomen [...] B/P 134/71 08/16 0000 B/P Mean 92 12/ 0000 O2 Delivery Room air 08/16 0000 [...] % (Auto) (14.3 - 34.3 %) 24.1 [place] % (Auto) (5.1 - 10.4 %) 8.3 Eos % (Auto) (0.1 - 3.0 %) 1.0 Baso % (Auto) (0.1 - 1.0 %) 0.6 Neut # (Auto) (K/mm3) 5.9 Lymph # (Auto) (K/mm3) 2.2 [place] # (Auto) (K/mm3) 0.7 Eos # (Auto) (K/mm3) 0.09 Baso # (Auto) (K/mm3) 0.1 Miscellaneous Maternal Serum HCG <1 Urines Urine Color (YELLOW) YELLOW Urine Appearance (CLEAR) CLEAR Urine pH (5 - 9) 5.0 Ur Specific [place] (1.001 - 1.035) >1.035 H Urine Protein [...] of the uterus and ovaries. SL: BILL-Pepper Impression By: Jose L Hairston MD Lab [...] Delivery Room air 12/ 0000 Temp 37.0 12 0000 Pulse 84 / 0000 Resp 18 08/16 0000 All vital [...] the current impression and/or treatment plan. The [facility] physician is now responsible for the [...] Consultation Consultation Referral/Consult Name Zulay Brooke MD Buhr Dresser Called Hospitalist Requested Call Time 2112 Requested Call Date 08/15/20 Call Returned Call returned Call Returned Time 2112 Call Returned Date 08/15/20 Buhr Dresser Will see patient Free Text MDM Notes [...] MD Patient Addendum Addendum at 1810 RPT #:[id number] END OF REPORT 2020-08-15 15:05:00-00:00 [facility] ([facility]) EMERGENCY PROVIDER REPORT REPORT#:[id number] REPORT STATUS: Signed DATE:08/15/20 TIME: 1505 PATIENT: LONA MARIE UNIT #: [id number] [facility] AGE: 30 SEX: F PCP PHYS: Zulay Brooke MD SERVICE AUTHOR: Andressa Razo MD * ALL edits or amendments must be made on the babbel/computer document * See Addendum Andressa Razo I [...] MG X1ED STA 08/15 1843 DC r 12 IV 08/15 1844 1904 Hydromorphone HCl 1 MG X1ED STA 08/15 1652 DCr 12/10 IV 12/ 1653 1724 Morphine Sulfate 4 MG X1ED STA 08/15 1503 DCr 1 / IV 08/15 1504 1553 Electrolytic, Caloric, And Jair Sig/Arina Start time Last Medication Dose Route Stop Time Status Admin Sodium Chloride 1,000 ML X1ED STA 10 1653 DC 12/10 IV 12/10 1654 1726 Sodium Chloride 1,000 ML X1ED STA 08/15 1515 DC 12/10 IV 12 1516 1552 Gastrointestinal Drugs Sig/Arina Start time Last Medication Dose Route Stop Time Status Admin Ondansetron HCl 4 MG X1ED STA 08/15 1503 DC 12 /10 IV 12/10 1504 1553 Ashley Rader 08/15/20 [...] of vomiting dark content, patient went to [facility] ER and she got CT abdomen [...] Result Date Time Pulse Ox 99 08/16 B/P 134/71 08/16 0000 B/P Mean 92 08/16 0000 O2 Delivery Room air 08/16 Temp 37.0 08/16 0000 Pulse 84 08/16 [...] % (Auto) (14.3 - 34.3 %) 24.1 [place] % (Auto) (5.1 - 10.4 %) 8.3 Eos % (Auto) (0.1 - 3.0 %) 1.0 Baso % (Auto) (0.1 - 1.0 %) 0.6 Neut # (Auto) (K/mm3) 5.9 Lymph # (Auto) (K/mm3) 2.2 [place] # (Auto) (K/mm3) 0.7 Eos # (Auto) (K/mm3) 0.09 Baso # (Auto) (K/mm3) 0.1 Miscellaneous Maternal Serum HCG <1 Urines Urine Color (YELLOW) YELLOW Urine Appearance (CLEAR) CLEAR Urine pH (5 - 9) 5.0 Ur Specific [place] (1.001 - 1.035) >1.035 H Urine Protein [...] 2. Nonvisualization of the uterus and ovaries. EDILIA: SG-Pepper Impression By: Jose L Hairston MD Lab Imaging Statement Laboratory radiographic studies reviewed and con sidered in the medical decision-making. Patient Discharge Departure Vital Signs/Condition Vital Signs First Documented: Result Date Time Pulse Ox 100 08/15 1506 B/P 163/92 / 1506 B/P Mean 115 / 1506 O2 Delivery Room air 08/15 1506 Temp 36.9 08/15 1506 Pulse 110 / 1506 Resp 20 08/15 1506 Last Documented: Result Date Time Pulse Ox 99 08/16 0000 B/P 134/71 / 0000 B/P Mean 92 / 0000 O2 Delivery Room air 08/16 0000 Temp 37.0 08/16 0000 Pulse 84 08/16 0000 Resp 18 08/16 0000 All vital [...] the current impression and/or treatment plan. The [facility] physician is now responsible for the [...] Consultation Consultation Referral/Consult Name Zulay Brooke MD Buhr Dresser Called Hospitalist Requested Call Time 2112 Requested Call Date 08/15/20 Call Returned Call returned Call Returned Time 2112 Call Returned Date 08/15/20 Buhr Dresser Will see patient Free Text MDM Notes [...] at 1806 at 0217 Addendum 2: 08/15/20 1807 by José Rader MD Patient Addendum Addendum at 1807 Addendum 3: 08/15/20 1810 by José Rader MD Patient Addendum Addendum at 1810 RPT #:[id number] END OF REPORT 2020-08-15 15:05:00-00:00 [facility] ([facility]) EMERGENCY PROVIDER REPORT REPORT#:[id number] REPORT STATUS: Signed DATE:08/15/20 TIME: 1505 PATIENT: LONA MARIE UNIT #: [id number] ROOM/BED: AGE: 30 SEX: F PCP PHYS: No Primary or Family P hysician SERVICE AUTHOR: Andressa Razo MD * ALL edits or amendments must be made on the babbel/computer document * Andressa Razo I 08/15/20 1505: [...] Admin Hydromorphone HCl 1 MG X1ED STA 12/ 1652 DCr 12/10 IV 12/10 1653 1724 Morphine Sulfate 4 MG X1ED STA 12/10 1503 DCr 1 /10 IV 12/10 1504 1553 Electrolytic, Caloric, And [...] Pulse Ox 100 / 1506 B/P 163/92 12/10 1506 B/P Mean 115 12/10 1506 O2 Delivery Room air / 1506 Temp 36.9 /10 1506 Pulse 110 12/10 1506 Resp 20 08/15 1506 Last Documented: Result Date Time Pulse Ox 100 08/15 1506 B/P 163/92 08/15 1506 B/P Mean 115 08/15 1506 O2 Delivery Room air 08/15 1506 Temp 36.9 / 1506 Pulse 110 / 1506 Resp 20 08/15 1506 All vital signs available at the time of this en try have been reviewed. MedardoJosé Muñiz 08/15/20 1534: HPI-General Illness Free Text HPI [...] of vomiting dark content, patient went to [facility] ER and she got CT abdomen [...] 1506 Pulse 110 12/10 1506 Resp 20 12 1506 Last Documented: Result Date Time Pulse Ox 100 12/ 1506 B/P 163/92 12/10 1506 B/P Mean 115 12/10 1506 O2 Delivery Room air / 1506 Temp 36.9 1210 1506 Pulse 110 12/10 1506 Resp 20 [...] % (Auto) (14.3 - 34.3 %) 24.1 [place] % (Auto) (5.1 - 10.4 %) 8.3 Eos % (Auto) (0.1 - 3.0 %) 1.0 Baso % (Auto) (0.1 - 1.0 %) 0.6 Neut # (Auto) (K/mm3) 5.9 Lymph # (Auto) (K/mm3) 2.2 [place] # (Auto) (K/mm3) 0.7 Eos # (Auto) (K/mm3) 0.09 Baso # (Auto) (K/mm3) 0.1 Miscellaneous Maternal Serum HCG <1 Urines Urine Color (YELLOW) YELLOW Urine Appearance (CLEAR) CLEAR Urine pH (5 - 9) 5.0 Ur Specific [place] (1.001 - 1.035) >1.035 H Urine Protein [...] the current impression and/or treatment plan. The [facility] physician is now responsible for the patient's care and final dis position. Care Transferred to Dr Amanda Care Transferred at 1800 Discussed Complaint(s) Yes Laboratory Evaluation Lab evaluation discussed Imaging Studies Ordered, not yet done at 1741 RPT #:[id number] END OF REPORT 2020-08-15 15:05:00-00:00 [facility] ([facility]) EMERGENCY PROVIDER REPORT REPORT#:[id number] REPORT STATUS: Signed DATE:08/15/20 TIME: 1505 PATIENT: LONA MARIE UNIT #: [id number] ROOM/BED: AGE: 30 SEX: F PCP PHYS: No Primary or Family Ph ysician SERVICE AUTHOR: Andressa Razo MD * ALL edits or amendments must be made on the babbel/computer document * See Addendum Andressa Razo I [...] 1724 Morphine Sulfate 4 MG X1ED STA 12 1503 DCr 1 2/10 IV 12/10 1504 [...] of vomiting dark content, patient went to [facility] ER and she got CT abdomen [...] % (Auto) (14.3 - 34.3 %) 24.1 [place] % (Auto) (5.1 - 10.4 %) 8.3 Eos % (Auto) (0.1 - 3.0 %) 1.0 Baso % (Auto) (0.1 - 1.0 %) 0.6 Neut # (Auto) (K/mm3) 5.9 Lymph # (Auto) (K/mm3) 2.2 [place] # (Auto) (K/mm3) 0.7 Eos # (Auto) (K/mm3) 0.09 Baso # (Auto) (K/mm3) 0.1 Miscellaneous Maternal Serum HCG <1 Urines Urine Color (YELLOW) YELLOW Urine Appearance (CLEAR) CLEAR Urine pH (5 - 9) 5.0 Ur Specific [place] (1.001 - 1.035) >1.035 H Urine Protein [...] the current impression and/or treatment plan. The [facility] physician is now responsible for the patient's care and final dis position. Care Transferred to Dr Amanda Care Transferred at 1800 Discussed Complaint(s) Yes Laboratory Evaluation Lab evaluation discussed Imaging Studies Ordered, not yet done at 1741 Addendum 1: 08/15/201805 by José Rader MD for Thomas Chamberlain MD Patient Addendum Addendum at 1806 RPT #:[id number] END OF REPORT 2020-08-15 15:05:00-00:00 [facility]) EMERGENCY PROVIDER REPORT REPORT#:[id number] REPORT STATUS: Signed DATE:08/15/20 TIME: 1505 PATIENT: LONA MARIE UNIT #: [id number] ROOM/BED: AGE: 30 SEX: F PCP PHYS: No Primary or Family Ph ysician SERVICE AUTHOR: Andressa Razo MD * ALL edits or amendments must be made on the [employer]/computer document * See Addendum Andressa Razo La [...] STA 08/15 1503 DCr 1 / IV 12/10 1504 [...] 115 12/10 1506 O2 Delivery Room air /10 1506 Temp 36.9 12/10 1506 Pulse 110 [...] of vomiting dark content, patient went to [facility] ER and she got CT abdomen [...] % (Auto) (14.3 - 34.3 %) 24.1 [place] % (Auto) (5.1 - 10.4 %) 8.3 Eos % (Auto) (0.1 - 3.0 %) 1.0 Baso % (Auto) (0.1 - 1.0 %) 0.6 Neut # (Auto) (K/mm3) 5.9 Lymph # (Auto) (K/mm3) 2.2 [place] # (Auto) (K/mm3) 0.7 Eos # (Auto) (K/mm3) 0.09 Baso # (Auto) (K/mm3) 0.1 Miscellaneous Maternal Serum HCG <1 Urines Urine Color (YELLOW) YELLOW Urine Appearance (CLEAR) CLEAR Urine pH (5 - 9) 5.0 Ur Specific [place] (1.001 - 1.035) >1.035 H Urine Protein [...] the current impression and/or treatment plan. The [facility] physician is now responsible for the [...] MD Patient Addendum Addendum at 1807 RPT #:[id number] END OF REPORT 2020-08-15 15:05:00-00:00 [facility] ([facility]) EMERGENCY PROVIDER REPORT REPORT#:[id number] REPORT STATUS: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
[2023-03-03 17:53] LABS: Absolute Lymphocytes (CBC) 3.4 K/uL (0.7-4.9); Hematocrit 39.1 % (36.0-45.0); Lymphocytes % 49.5 % (15.3-44.8); MCV 91.6 fL (80-100); MPV 6.8 fL (7.6-11.3); RBC Red Blood Cell Count 4.27 M/uL (3.86-4.86)
[2023-03-03 17:57] LABS: Potassium 3.8 mEq/L (3.5-5.1)
[2023-03-03] MEDS ORDERED: dexAMETHasone 10 MG/ML VIAL ONE (18:30)
[2023-03-03] MEDS ORDERED: MORPHINE 4 MG/ML SYR ONE ×2 (18:30→19:26)
--- NOTE | 2023-03-03 19:34 | RAD REPORT ---
EXAM DESCRIPTION: CT - Head Brain Wo Cont - 03/03/2023 6:58 pm CLINICAL HISTORY: HEADACHE Headache, drowsiness COMPARISON: <Comparisons> TECHNIQUE: All CT scans are performed using dose optimization technique as appropriate and may inclu de automated exposure control or mA/KV adjustment according to patient size. FINDINGS: No intracranial hemorrhage, hydrocephalus or extra-axial fluid collection.No areas of brai n edema or evidence of midline shift. The paranasal sinuses and mastoids are clear. The calvarium is intact. IMPRESSION: No acute intracranial abnormality.
--- NOTE | 2023-03-03 20:17 | ER ---
Nurse's Notes [facility] Name: Lona Marie Age: 32 yrs Sex: Female : 1990 Arrival Date: 03/03/2023 Time: 17:21 Bed 13 Private MD: Diagnosis: Headache Presentation: 03/03 17:25 Chief complaint: Patient states: Dizziness, headache X 3 hours. Coronavirus screen: At 1 this time, the client does not indicate any symptoms associated with coronavirus-19. Ebola Screen: No symptoms or risks identified at this time. Initial Sepsis Screen: Does the patient meet any 2 criteria? No. Patient's initial sepsis screen is negative. Does the patient have a suspected source of infection? No. Patient's initial sepsis screen is negative. Risk Assessment: Do you want to hurt yourself or someone else? Patient reports no desire to harm self or others. Onset of symptoms was March 03, 2023. 17:25 Method Of Arrival: Ambulatory ld1 17:25 Acuity: SMITH 3 ld1 Triage Assessment: 17:27 Headache History: The patient has had previous headaches and this one is similar to ld1 previous episodes. General: Appears in no apparent distress. uncomfortable, Behavior is anxious, crying, fussy. Pain: Complains of pain in face Pain does not radiate. Pain currently is 10 out of 10 on a pain scale. Quality of pain is described as throbbing, Pain began Is continuous. EENT: No signs and/or symptoms were reported regarding the EENT system. Neuro: Level of Consciousness is awake, alert, obeys commands, Oriented to person, place, time, situation. Cardiovascular: Capillary refill < 3 seconds Patient's skin is warm and dry. Respiratory: Airway is patent Respiratory effort is even, unlabored. GI: Abdomen is round non-distended. : No signs and/or symptoms were reported regarding the genitourinary system. Derm: No signs and/or symptoms reported regarding the dermatologic system. Musculoskeletal: No signs and/or symptoms reported regarding the musculoskeletal system. 19:15 Pain: Also complains of nausea. 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 - Social history:: Smoking status: Patient denies any tobacco usage or history of. Patient/guardian denies using alcohol. Screenin:40 [facility] ED Fall Risk Assessment (Adult) History of falling in the last 3 months, kc6 including since admission No falls in past 3 months (0 pts) Confusion or Disorientation No (0 pts) Intoxicated or Sedated No (0 pts) Impaired Gait No (0 pts) Mobility Assist Device Used No (0 pt) Altered Elimination No (0 pt) Score/Fall Risk Level 0 - 2 = Low Risk Oriented to surroundings, Maintained a safe environment, Educated pt \T\ family on fall prevention, incl call for assistance when getting out of bed, Assessed \T\ reinforced patient's understanding of fall precautions, Hourly rounding (assess needs \T\ fall precautionary measures) done. Abuse screen: Denies threats or abuse. Denies injuries from another. Nutritional screening: No deficits noted. Tuberculosis screening: No symptoms or risk factors identified. Assessment: 17:40 General: Appears in no apparent distress. uncomfortable, Behavior is cooperative, kc6 appropriate for age, anxious, crying. Pain: Complains of pain in headache Pain does not radiate. Pain currently is 10 out of 10 on a pain scale. Quality of pain is described as pressure, throbbing. Neuro: Cool Agitation-Sedation Scale (RASS): 0 - Alert and Calm Level of Consciousness is awake, alert, obeys commands, Oriented to person, place, time, situation, Appropriate for age Reports dizziness, headache. Cardiovascular: Capillary refill < 3 seconds. Respiratory: Airway is patent Trachea midline Respiratory effort is even, unlabored, Respiratory pattern is regular, symmetrical. GI: Reports nausea, Patient currently denies diarrhea, vomiting. : No signs and/or symptoms were reported regarding the genitourinary system. EENT: No signs and/or symptoms were reported regarding the EENT system. Derm: No signs and/or symptoms reported regarding the dermatologic system. Skin is intact, Skin is pink, warm \T\ dry. Musculoskeletal: No signs and/or symptoms reported regarding the musculoskeletal system. Circulation, motion, and sensation intact. Capillary refill < 3 seconds, Range of motion: intact in all extremities. 18:25 Reassessment: Patient appears in no apparent distress at this time. No changes from kc6 previously documented assessment. Patient and/or family updated on plan of care and expected duration. Pain level reassessed. Patient is alert, oriented x 3, equal unlabored respirations, skin warm/dry/pink. 19:15 General: Appears uncomfortable, Behavior is anxious, crying. Pain: Complains of pain in ha1 head Pain does not radiate. Pain currently is 10 out of 10 on a pain scale. Neuro: Level of Consciousness is awake, alert, obeys commands, Oriented to person, place, time, situation. Neuro: Reports dizziness, headache. Cardiovascular: Patient's skin is warm and dry. Cardiovascular: Patient's skin is warm and dry. Respiratory: Airway is patent Respiratory effort is even, unlabored, Respiratory pattern is regular, symmetrical. GI: Abdomen is flat, non-distended, Reports nausea. : No signs and/or symptoms were reported regarding the genitourinary system. Musculoskeletal: Circulation, motion, and sensation intact. Range of motion: intact in all extremities. 20:15 Reassessment: Patient and/or family updated on plan of care and expected duration. Pain ha1 level reassessed. Patient is alert, oriented x 3, equal unlabored respirations, skin warm/dry/pink. 20:54 Reassessment: Patient and/or family updated on plan of care and expected duration. Pain ha1 level reassessed. Patient is alert, oriented x 3, equal unlabored respirations, skin warm/dry/pink. Vital Signs: 17:25 Pulse 94; Resp 20; Temp 98.2; Pulse Ox 100% on R/A; Weight 69 kg; Height 5 ft. 3 in. ; ld1 Pain 10/10; 17:29 BP 141 / 89; ld1 18:34 BP 128 / 77; Pulse 91; Resp 20 S; Pulse Ox 100% on R/A; kc6 19:15 BP 140 / 95; Pulse 84; Resp 16 S; Pulse Ox 100% on R/A; ha1 20:15 BP 135 / 90; Pulse 80; Resp 18 S; Pulse Ox 100% on R/A; ha1 20:54 BP 134 / 69; Pulse 89; Resp 15 S; Pulse Ox 100% ; ha1 17:25 Body Mass Index 26.95 (69.00 kg, 160.02 cm) ld1 17:25 Pain Scale: Adult ld1 ED Course: 17:24 Patient arrived in ED. kc6 17:26 Beth Maciel FNP-C is PHCP. kb 17:26 Markell Worthington MD is Attending Physician. kb 17:27 Triage completed. ld1 17:27 Arm band placed on right wrist. ld1 17:29 Imelda Chen RN is Primary Nurse. kc6 17:36 Basic Metabolic Panel Sent. zm 17:36 CBC with Diff Sent. zm 17:36 Inserted saline lock: 20 gauge in right antecubital area, using aseptic technique. zm Blood collected. 17:40 Patient has correct armband on for positive identification. Bed in low position. Call kc6 light in reach. Side rails up X 1. 18:59 CT Head Brain wo Cont In Process Unspecified. EDMS 19:18 PHCP role handed off by Beth Maciel FNP-C cp 19:18 Aj Gruber PA is PHCP. cp 20:16 Chevy Villarreal MD is Referral Physician. cp 20:54 No provider procedures requiring assistance completed. IV discontinued, intact, ha1 bleeding controlled, No redness/swelling at site. Pressure dressing applied. Administered Medications: 17:39 Drug: NS 0.9% IV 1000 ml Route: IV; Rate: 1000 ml; Site: right antecubital; kc6 18:34 Follow up: Response: No adverse reaction; IV Status: Completed infusion; IV Intake: kc6 1000ml 17:39 Drug: diphenhydrAMINE IVP 12.5 mg Route: IVP; Site: right antecubital; kc6 18:34 Follow up: Response: No adverse reaction kc6 17:39 Drug: Ondansetron IVP 4 mg Route: IVP; Site: right antecubital; kc6 18:34 Follow up: Response: No adverse reaction; Nausea is decreased kc6 18:28 Drug: Decadron - Dexamethasone IVP 10 mg Route: IVP; Site: right antecubital; kc6 18:29 Drug: morphine IVP or IV 4 mg Route: IVP; Infused Over: 4 mins; Site: right antecubital;kc6 19:25 Drug: morphine IVP or IV 4 mg Route: IVP; Infused Over: 4 mins; Site: right antecubital;ha1 20:38 Not Given (Physician Discretion): Ativan IVP 1 mg IVP once cp 20:46 Drug: HYDROmorphone IVP 1 mg Route: IVP; Site: right antecubital; ha1 Medication: 20:55 VIS not applicable for this client. ha1 Intake: 18:34 IV: 1000ml; Total: 1000ml. kc6 Outcome: 20:17 Discharge ordered by MD. cp 20:55 Discharged to home ambulatory, with family. ha1 20:55 Condition: stable 20:55 Discharge instructions given to patient, Instructed on discharge instructions, follow up and referral plans. medication usage, Demonstrated understanding of instructions, follow-up care, medications, Prescriptions given X 2. 20:55 Patient left the ED. ha1 Signatures: Dispatcher [employer] EDMS Beth Maciel, RADHA CASTP-Aj Blevins PA PA cp Sims, Lauren, RN RN ld1 Dolly Borges Heidy, RN RN ha1 Imelda Chen RN RN kc6
--- NOTE | 2023-03-03 20:17 | EDPHYS ---
Physician Documentation [facility] Name: Lona Marie Age: 32 yrs Sex: Female : 1990 Arrival Date: 03/03/2023 Time: 17:21 Bed 13 Private MD: ED Physician Markell Worthington HPI: 03/03 17:49 This 32 yrs old Female presents to ER via Ambulatory with complaints of Dizziness, kb Headache. 17:49 The patient complains of pain to the around top of head. The patient describes the kb headache as constant. Onset: The symptoms/episode began/occurred 3 hour(s) ago. Associated signs and symptoms: Pertinent positives: dizziness, nausea, Photophobia. Severity of symptoms: At its worst the pain was moderate, in the emergency department the pain is unchanged. Headache History: The patient has had previous headaches. The symptoms are alleviated by nothing. the symptoms are aggravated by lights, movement. The patient has not experienced similar symptoms in the past. The patient has not recently seen a physician. 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 - Social history:: Smoking status: Patient denies any tobacco usage or history of. Patient/guardian denies using alcohol. ROS: 17:48 Constitutional: Negative for fever, chills, and weight loss. kb 17:48 Abdomen/GI: Positive for nausea. 17:48 Neuro: Positive for dizziness, headache. 17:48 All other systems are negative. Exam: 17:48 Constitutional: This is a well developed, well nourished patient who is awake, alert, kb and in no acute distress. Head/Face: Normocephalic, atraumatic. Eyes: Pupils equal round and reactive to light, extra-ocular motions intact. Lids and lashes normal. Conjunctiva and sclera are non-icteric and not injected. Cornea within normal limits. Periorbital areas with no swelling, redness, or edema. ENT: Moist Mucous membranes Cardiovascular: Regular rate and rhythm with a normal S1 and S2. No gallops, murmurs, or rubs. No pulse deficits. Respiratory: Respirations even and unlabored. No increased work of breathing. Talking in full sentences Abdomen/GI: Soft, non-tender. No distention Skin: Warm, dry with normal turgor. Normal color. MS/ Extremity: Pulses equal, no cyanosis. Neurovascular intact. Full, normal range of motion. Neuro: Awake and alert, GCS 15, oriented to person, place, time, and situation. Moves all extremities. Normal gait. Vital Signs: 17:25 Pulse 94; Resp 20; Temp 98.2; Pulse Ox 100% on R/A; Weight 69 kg; Height 5 ft. 3 in. ; ld1 Pain 10/10; 17:29 BP 141 / 89; ld1 18:34 BP 128 / 77; Pulse 91; Resp 20 S; Pulse Ox 100% on R/A; kc6 19:15 BP 140 / 95; Pulse 84; Resp 16 S; Pulse Ox 100% on R/A; ha1 20:15 BP 135 / 90; Pulse 80; Resp 18 S; Pulse Ox 100% on R/A; ha1 20:54 BP 134 / 69; Pulse 89; Resp 15 S; Pulse Ox 100% ; ha1 17:25 Body Mass Index 26.95 (69.00 kg, 160.02 cm) ld1 17:25 Pain Scale: Adult ld1 MDM: 17:26 Patient medically screened. kb 17:48 Data reviewed: vital signs, nurses notes. kb 18:00 Differential diagnosis: hyponatremia, intracerebral hemorrhage, meningitis, cp meningoencephalitis, migraine, sinusitis, subdural hematoma, tension headache. 19:20 Transition of care: After a detail discussion of the patient's case, care is kb transferred to Aj DEVLIN. 20:16 I considered the following discharge prescriptions or medication management in the cp emergency department Medications were administered in the Emergency Department. See NOV. 20:16 Counseling: I had a detailed discussion with the patient and/or guardian regarding: the cp historical points, exam findings, and any diagnostic results supporting the discharge/admit diagnosis, lab results, radiology results, the need for outpatient follow up, for definitive care, a neurologist, to return to the emergency department if symptoms worsen or persist or if there are any questions or concerns that arise at home. Response to treatment: improved, and as a result, I will discharge patient. ED course: VSS. Patient with history of migraine headaches and seizures. Labs reviewed and head CT negative. Will discharge to home to f/u with neuro. 03/03 17: Order name: CBC with Diff; Complete Time: 17:57 kb 03/03 19:52 Interpretation: Normal except: MPV 6.8; LYM% 49.5. 03/03 17:27 Order name: Basic Metabolic Panel; Complete Time: 17:57 kb 03/03 19:53 Interpretation: Normal except: GLUC 118. 03/03 17:27 Order name: CT Head Brain wo Cont; Complete Time: 19:52 kb 03/03 19:52 Interpretation: Report reviewed. 03/03 17:27 Order name: IV Start; Complete Time: 17:36 kb Administered Medications: 17:39 Drug: NS 0.9% IV 1000 ml Route: IV; Rate: 1000 ml; Site: right antecubital; kc6 18:34 Follow up: Response: No adverse reaction; IV Status: Completed infusion; IV Intake: kc6 1000ml 17:39 Drug: diphenhydrAMINE IVP 12.5 mg Route: IVP; Site: right antecubital; kc6 18:34 Follow up: Response: No adverse reaction kc6 17:39 Drug: Ondansetron IVP 4 mg Route: IVP; Site: right antecubital; kc6 18:34 Follow up: Response: No adverse reaction; Nausea is decreased kc6 18:28 Drug: Decadron - Dexamethasone IVP 10 mg Route: IVP; Site: right antecubital; kc6 18:29 Drug: morphine IVP or IV 4 mg Route: IVP; Infused Over: 4 mins; Site: right antecubital;kc6 19:25 Drug: morphine IVP or IV 4 mg Route: IVP; Infused Over: 4 mins; Site: right antecubital;ha1 20:38 Not Given (Physician Discretion): Ativan IVP 1 mg IVP once cp 20:46 Drug: HYDROmorphone IVP 1 mg Route: IVP; Site: right antecubital; ha1 Disposition: 21:12 Co-signature as Attending Physician, Markell Worthington MD I agree with the assessment and kdr plan of care. Disposition Summary: 03/03/23 20:17 Discharge Ordered Location: Home cp Problem: new cp Symptoms: have improved cp Condition: Stable cp Diagnosis - Headache cp Followup: cp - With: Chevy Villarreal MD - When: 2 - 3 days - Reason: Recheck today's complaints Discharge Instructions: - Discharge Summary Sheet cp - Migraine Headache cp Forms: - Medication Reconciliation Form cp - Thank You Letter cp - Antibiotic Education cp - Prescription Opioid Use cp - [email or web address] cp - Work release form [facility] Prescriptions: - Imitrex 50 mg Oral Tablet - take 1 tablet by ORAL route one time - x 1 dose with fluids as early as cp possible after the onset of a migraine attack; if headache returns, the dose may be repeated after 2 hours, not to exceed a total daily dose of 4 tablets; 12 tablet; Refills: 0, Product Selection Permitted - Zofran 4 mg Oral Tablet - take 1 tablet by ORAL route every 12 hours As needed; 20 tablet; Refills: 0, cp Product Selection Permitted Signatures: Dispatcher [employer] Beth Ansari FNP-C FNP-Markell Walker MD MD [facility] Aj Gruber PA PA cp Zaria Nichole RN RN ld1 Jacquelyn Bunch RN RN ha1 Imelda Chen RN RN kc6
[2023-03-03] MEDS ORDERED: LORazepam 2 MG/ML VIAL ONE (20:37)
[2023-03-03] MEDS ORDERED: HYDROMORPHONE HCL 1 MG/ML INJ ONE (20:49)
[2023-03-03 21:14] VITALS: TEMP 98.2; O2SAT 100
[2023-03-03 21:24] VITALS: BP 134/69
== END 2023-03-03 20:55 | disposition home or self-care (01) ==
LOC: ER 17:21
DX: R51.9 Headache, unspecified (principal); R42 Dizziness and giddiness; Z88.0 Allergy status to penicillin; Z88.1 Allergy status to other antibiotic agents; Z88.2 Allergy status to sulfonamides; Z88.3 Allergy status to other anti-infective agents; Z88.5 Allergy status to narcotic agent; Z88.8 Allergy status to other drugs, medicaments and biological substances; Z91.040 Latex allergy status; Z91.048 Other nonmedicinal substance allergy status
CPT/HCPCS: 85025; 80048; 36415; 70450; J1200; J1100; J1170; J2405; J7030; 96361; 96374; 96375; 99284

== ENCOUNTER 2023-03-07 04:25 | Emergency (ER) | payer OTHER ==
--- OUTSIDE RECORDS SUMMARY | 2023-03-07 04:53 | XMS REPORT | Continuity of Care Document ---
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 [place] 00 the Medical morning Branch and 1 tablet at noon and 1 tablet in the evening. valACYclovi 2023-0 Yes [id number] 1g Take 1 [facility] r 1 gram 4-21 tablet by ity of tablet 00:00: mouth in [place] 00 the Medical morning Branch and 1 tablet at noon and 1 tablet in the evening. valACYclovi 2023-0 Yes [id number] 1g Take 1 [facility] r 1 gram 4-21 tablet by ity of tablet 00:00: mouth in [place] 00 the [facility] morning [place] and 1 tablet at noon and 1 tablet in the evening. valACYclovi Yes [id number] 1g Take 1 Univers r 1 gram 4-21 tablet by ity of tablet 00:00: mouth in [place] 00 the [facility] and 1 tablet at noon and 1 tablet in the evening. valACYclovi Yes [id number] 1g Take 1 Univers r 1 gram 4-21 tablet by ity of tablet 00:00: mouth in [place] 00 the [facility] and 1 tablet at noon and 1 tablet in the evening. valACYclovi 2022- No [id number] 1g Take 1 Univers r 1 gram 4-21 05-12 tablet by ity o f tablet 00:00: 00:00 mouth in [place] 00 :00 the [facility] and 1 tablet at noon and 1 tablet in the evening. valACYclovi 2022- Yes [id number] 1g Take 1 Univers r 1 gram 4-21 -29 tablet by ity o f tablet 00:00: 04:59 mouth in [place] 00 :00 the [facility] and 1 tablet at noon and 1 tablet in the evening. Do all this for 7 days. valACYclovi 2022- No [id number] 1g Take 1 Univers r 1 gram 4-21 04-21 tablet by ity o f tablet 00:00: 00:00 mouth in [place] 00 :00 the [facility] and 1 tablet at noon and 1 tablet in the evening. Do all this for 7 days. levETIRAcet Yes TWICE Unive rs am 500 mg 4-18 DAILY. ity of tablet 09:12: [address] gabapentin Yes gabapentin U nivers 300 mg 4-18 300 mg ity of capsule 09:12: capsule [address] famotidine Yes famotidine U nivers 20 mg 4-18 20 mg ity of tablet 09:12: tablet [address] clonazePAM 2022- Yes clonazepam U nivers 0.5 mg 4-18 0.5 mg ity of tablet 09:12: tablet [place] [address] TAKE 1 Medical TABLET BY Branch MOUTH EVERY DAY AT BEDTIME NEEDED FOR SEVERE ANXIETY/PA STACEY ATTACK buPROPion Yes 300mg Take 1 Unive rs XL 300 mg 4-18 tablet by ity o f 24 hr 09:12: mouth. [place] tablet 14 [facility] buprenorphi Yes [place] Uni vers ne HCL [...] mg 4-18 DAILY. ity of tablet 09:12: [address] gabapentin Yes gabapentin U nivers 300 mg 4-18 300 mg ity of capsule 09:12: capsule [address] famotidine Yes famotidine U nivers 20 mg 4-18 20 mg ity of tablet 09:12: tablet [address] clonazePAM Yes clonazepam U nivers 0.5 mg 4-18 0.5 mg ity of tablet 09:12: tablet [place] [address] TAKE 1 Medical TABLET BY Branch MOUTH EVERY DAY AT BEDTIME NEEDED FOR SEVERE ANXIETY/PA STACEY ATTACK buPROPion Yes 300mg Take 1 Unive rs XL 300 mg 4-18 tablet by ity o f 24 hr 09:12: mouth. [place] tablet 14 [facility] buprenorphi Yes [place] Uni vers ne HCL [...] mg 4-18 DAILY. ity of tablet 09:12: [address] gabapentin Yes gabapentin U nivers 300 mg 4-18 300 mg ity of capsule 09:12: capsule [address] famotidine Yes famotidine U nivers 20 mg 4-18 20 mg ity of tablet 09:12: tablet [address] clonazePAM Yes clonazepam U nivers 0.5 mg 4-18 0.5 mg ity of tablet 09:12: tablet [place] [address] TAKE 1 Medical TABLET BY Branch MOUTH EVERY DAY AT BEDTIME NEEDED FOR SEVERE ANXIETY/PA STACEY ATTACK buPROPion Yes 300mg Take 1 Unive rs XL 300 mg 4-18 tablet by ity o f 24 hr 09:12: mouth. [address] buprenorphi Yes [place] Uni vers ne [...] mg 4-18 DAILY. ity of tablet 09:12: [address] gabapentin Yes gabapentin U nivers 300 mg 4-18 300 mg ity of capsule 09:12: capsule [address] famotidine Yes famotidine U nivers 20 mg 4-18 20 mg ity of tablet 09:12: tablet [address] clonazePAM 0 Yes clonazepam U nivers 0.5 mg 4-18 0.5 mg ity of tablet 09:12: tablet [place] 14 TAKE 1 Medical TABLET BY Branch MOUTH EVERY DAY AT BEDTIME NEEDED FOR SEVERE ANXIETY/PA STACEY ATTACK buPROPion 0 Yes 300mg Take 1 Unive rs XL 300 mg 4-18 tablet by ity o f 24 hr 09:12: mouth. [place] tablet [address] [place] [address] buprenorphi Yes [place] [facility] vers ne HCL [...] [place] aerosol inhaler levETIRAcet Yes TWICE Unive rs am 500 mg 4-18 DAILY. ity of tablet 09:12: [address] gabapentin Yes gabapentin U nivers 300 mg 4-18 300 mg ity of capsule 09:12: capsule [address] famotidine Yes famotidine U nivers 20 mg 4-18 20 mg ity of tablet 09:12: tablet [address] clonazePAM 2022-0 Yes clonazepam U nivers 0.5 mg 4-18 0.5 mg ity of tablet 09:12: tablet [place] 14 TAKE 1 Medical TABLET BY Branch MOUTH EVERY DAY AT BEDTIME NEEDED FOR SEVERE ANXIETY/PA STACEY ATTACK buPROPion 2022-0 Yes 300mg Take 1 Unive rs XL 300 mg 4-18 tablet by ity o f 24 hr 09:12: mouth. [place] tablet 14 [facility] buprenorphi Yes [place] Uni vers ne HCL [...] mg 4-18 DAILY. ity of tablet 09:12: [address] gabapentin Yes gabapentin U nivers 300 mg 4-18 300 mg ity of capsule 09:12: capsule [address] famotidine Yes famotidine U nivers 20 mg 4-18 20 mg ity of tablet 09:12: tablet [address] clonazePAM 0 Yes clonazepam U nivers 0.5 mg 4-18 0.5 mg ity of tablet 09:12: tablet [place] [address] TAKE 1 Medical TABLET BY Branch MOUTH EVERY DAY AT BEDTIME NEEDED FOR SEVERE ANXIETY/PA STACEY ATTACK buPROPion 0 Yes 300mg Take 1 Unive rs XL 300 mg 4-18 tablet by ity o f 24 hr 09:12: mouth. [place] tablet [address] [place] [address] buprenorphi Yes [place] Uni vers ne HCL [...] mg 4-18 DAILY. ity of tablet 09:12: [address] gabapentin 0 Yes gabapentin U nivers 300 mg 4-18 300 mg ity of capsule 09:12: capsule [address] famotidine 2022-0 Yes famotidine U nivers 20 mg 4-18 20 mg ity of tablet 09:12: tablet [address] clonazePAM 2022-0 Yes clonazepam U nivers 0.5 mg 4-18 0.5 mg ity of tablet 09:12: tablet [place] 14 TAKE 1 Medical TABLET BY Branch MOUTH EVERY DAY AT BEDTIME NEEDED FOR SEVERE ANXIETY/PA STACEY ATTACK buPROPion 2022-0 Yes 300mg Take 1 Unive rs XL 300 mg 4-18 tablet by ity o f 24 hr 09:12: mouth. [facility] 14 [facility] buprenorphi Yes [place] Uni vers ne HCL [...] mg 4-18 DAILY. ity of tablet 09:12: [address] gabapentin 2022-0 Yes gabapentin U nivers 300 mg 4-18 300 mg ity of capsule 09:12: capsule [address] famotidine 2022-0 Yes famotidine U nivers 20 mg 4-18 20 mg ity of tablet 09:12: tablet [address] clonazePAM 2022-0 Yes clonazepam U nivers 0.5 mg 4-18 0.5 mg ity of tablet 09:12: tablet [place] 14 TAKE 1 Medical TABLET BY Branch MOUTH EVERY DAY AT BEDTIME NEEDED FOR SEVERE ANXIETY/PA STACEY ATTACK buPROPion Yes 300mg Take 1 Unive rs XL 300 mg 4-18 tablet by ity o f 24 hr 09:12: mouth. [place] tablet 14 [facility] buprenorphi Yes [place] Uni vers ne HCL [...] mg 4-18 DAILY. ity of tablet 09:12: [address] gabapentin Yes gabapentin U nivers 300 mg 4-18 300 mg ity of capsule 09:12: capsule [address] famotidine 0 Yes famotidine U nivers 20 mg 4-18 20 mg ity of tablet 09:12: tablet [address] clonazePAM 0 Yes clonazepam U nivers 0.5 mg 4-18 0.5 mg ity of tablet 09:12: tablet [place] [address] TAKE 1 Medical TABLET BY Branch MOUTH EVERY DAY AT BEDTIME NEEDED FOR SEVERE ANXIETY/PA STACEY ATTACK buPROPion 0 Yes 300mg Take 1 Unive rs XL 300 mg 4-18 tablet by ity o f 24 hr 09:12: mouth. [place] tablet 14 [facility] buprenorphi Yes [place] Uni vers ne HCL [...] mg 4-18 DAILY. ity of tablet 09:12: [address] gabapentin Yes gabapentin U nivers 300 mg 4-18 300 mg ity of capsule 09:12: capsule [address] famotidine Yes famotidine U nivers 20 mg 4-18 20 mg ity of tablet 09:12: tablet [address] clonazePAM Yes clonazepam U nivers 0.5 mg 4-18 0.5 mg ity of tablet 09:12: tablet [place] [address] TAKE 1 Medical TABLET BY Branch MOUTH EVERY DAY AT BEDTIME NEEDED FOR SEVERE ANXIETY/PA STACEY ATTACK buPROPion Yes 300mg Take 1 Unive rs XL 300 mg 4-18 tablet by ity o f 24 hr 09:12: mouth. [address] buprenorphi Yes [place] Uni vers ne [...] mg 4-18 DAILY. ity of tablet 09:12: [address] gabapentin Yes gabapentin U nivers 300 mg 4-18 300 mg ity of capsule 09:12: capsule [address] famotidine 2022-0 Yes famotidine U nivers 20 mg 4-18 20 mg ity of tablet 09:12: tablet [address] clonazePAM 2022-0 Yes clonazepam U nivers 0.5 mg 4-18 0.5 mg ity of tablet 09:12: tablet [place] 14 TAKE 1 Medical TABLET BY Branch MOUTH EVERY DAY AT BEDTIME NEEDED FOR SEVERE ANXIETY/PA STACEY ATTACK buPROPion 0 Yes 300mg Take 1 Unive rs XL 300 mg 4-18 tablet by ity o f 24 hr 09:12: mouth. [place] tablet 14 [facility] buprenorphi Yes [place] Uni vers ne HCL [...] mg 4-18 DAILY. ity of tablet 09:12: [address] gabapentin 2022-0 Yes gabapentin U nivers 300 mg 4-18 300 mg ity of capsule 09:12: capsule [address] famotidine 2022-0 Yes famotidine U nivers 20 mg 4-18 20 mg ity of tablet 09:12: tablet [address] clonazePAM 2022-0 Yes clonazepam U nivers 0.5 mg 4-18 0.5 mg ity of tablet 09:12: tablet [place] [address] TAKE 1 Medical TABLET BY Branch MOUTH EVERY DAY AT BEDTIME NEEDED FOR SEVERE ANXIETY/PA STACEY ATTACK buPROPion 2022-0 Yes 300mg Take 1 Unive rs XL 300 mg 4-18 tablet by ity o f 24 hr 09:12: mouth. [place] tablet [address] [place] [address] buprenorphi Yes [place] Uni vers ne HCL [...] mg 4-18 DAILY. ity of tablet 09:12: [address] gabapentin Yes gabapentin U nivers 300 mg 4-18 300 mg ity of capsule 09:12: capsule [address] famotidine Yes famotidine U nivers 20 mg 4-18 20 mg ity of tablet 09:12: tablet [address] clonazePAM Yes clonazepam U nivers 0.5 mg 4-18 0.5 mg ity of tablet 09:12: tablet [place] [address] TAKE 1 Medical TABLET BY Branch MOUTH [...] mg 4-18 DAILY. ity of tablet 09:12: [address] gabapentin 0 Yes gabapentin U nivers 300 mg 4-18 300 mg ity of capsule 09:12: capsule [address] famotidine 2022-0 Yes famotidine U nivers 20 mg 4-18 20 mg ity of tablet 09:12: tablet [address] clonazePAM 2022-0 Yes clonazepam U nivers 0.5 mg 4-18 0.5 mg ity of tablet 09:12: tablet [place] 14 TAKE 1 Medical TABLET BY Branch [...] mg 4-18 DAILY. ity of tablet 09:12: [address] gabapentin Yes gabapentin U nivers 300 mg 4-18 300 mg ity of capsule 09:12: capsule [address] famotidine 2022-0 Yes famotidine U nivers 20 mg 4-18 20 mg ity of tablet 09:12: tablet [address] clonazePAM 2022-0 Yes clonazepam U nivers 0.5 mg 4-18 0.5 mg ity of tablet 09:12: tablet [place] 14 TAKE 1 Medical TABLET BY Branch [...] mg 4-18 DAILY. ity of tablet 09:12: [address] gabapentin Yes gabapentin U nivers 300 mg 4-18 300 mg ity of capsule 09:12: capsule [address] famotidine Yes famotidine U nivers 20 mg 4-18 20 mg ity of tablet 09:12: tablet [address] clonazePAM Yes clonazepam U nivers 0.5 mg 4-18 0.5 mg ity of tablet 09:12: tablet [place] [address] TAKE 1 Medical TABLET BY Branch MOUTH [...] 12/19/22 at 0530, Routine iopamidol 2022- No [id number] 99mL 99 mL, U nivers (ISOVUE 12-19-15 [...] 800 mg ity of tablet 10:43: tablet [place] [address] Medical Branch adalimumab Yes 40mg inject 1 [...] 800 mg ity of tablet 10:43: tablet [place] [address] Medical Branch adalimumab 2022-0 Yes 40mg inject 1 Uni vers (HUMIRA) 40 4-11 Syringe ity o f mg/0.8 mL 10:43: under the [place] as injection 17 skin. Medical Branch ibuprofen Yes ibuprofen Uni vers 800 mg 4-11 800 mg ity of tablet 10:43: tablet [place] [address] Medical Branch adalimumab 2022-0 Yes 40mg inject [...] 15 mg 3-30 ity of tablet 00:00: [place] [facility] Branch HYDROcodone 2023-0 Yes 1{tbl} Take 1 Un travis -acetaminop 3-30 tablet by ity of hen 5-325 00:00: mouth 4 [place] mg tablet 00 ([facility]) [facility] times [place] daily. pregabalin 2023-0 Yes 150mg Take 1 Univ ers 150 mg 3-30 capsule by ity of capsule 00:00: mouth in [place] [address] the [facility] morning Branch and 1 capsule in the evening. meloxicam 2023-0 Yes Univers 15 mg 3-30 ity of tablet 00:00: [address] Branch HYDROcodone 2023-0 Yes 1{tbl} Take 1 Un travis -acetaminop 3-30 tablet by ity of hen 5-325 00:00: mouth 4 [place] mg tablet ([facility]) [facility] times [place] daily. pregabalin 2023-0 Yes 150mg Take 1 Univ ers 150 mg 3-30 capsule by ity of capsule 00:00: mouth in [place] [address] the [facility] morning Branch and 1 capsule in the evening. meloxicam 2023-0 Yes Univers 15 mg 3-30 ity of tablet 00:00: [address] Branch HYDROcodone 2023-0 Yes 1{tbl} Take 1 Un travis -acetaminop 3-30 tablet by ity of hen 5-325 00:00: mouth 4 [place] mg tablet ([facility]) [facility] times [place] daily. pregabalin 2023-0 Yes 150mg Take 1 Univ ers 150 mg 3-30 capsule by ity of capsule 00:00: mouth in [place] [address] the [facility] morning Branch and 1 capsule in the evening. meloxicam 2023-0 Yes Univers 15 mg 3-30 ity of tablet 00:00: [address] Branch HYDROcodone 2023-0 Yes 1{tbl} Take 1 Un travis -acetaminop 3-30 tablet by ity of hen 5-325 00:00: mouth 4 [place] mg tablet 00 ([facility]) [facility] times [place] daily. pregabalin 2023-0 Yes 150mg Take 1 Univ ers 150 mg 3-30 capsule by ity of capsule 00:00: mouth in [place] [address] the [facility] morning Branch and 1 capsule in the evening. meloxicam 2023-0 Yes Univers 15 mg 3-30 ity of tablet 00:00: [place] 00 [facility] Branch HYDROcodone 2023-0 Yes 1{tbl} Take 1 Un travis -acetaminop 3-30 tablet by ity of hen 5-325 00:00: mouth 4 [place] mg tablet 00 ([facility]) [facility] times [place] daily. pregabalin 2023-0 Yes 150mg Take 1 Univ ers 150 mg 3-30 capsule by ity of capsule 00:00: mouth in [place] 00 the Medical morning Branch and 1 capsule in the evening. meloxicam 2023-0 Yes Univers 15 mg 3-30 ity of tablet 00:00: [place] 00 [facility] Branch HYDROcodone 2023-0 Yes 1{tbl} Take 1 Un travis -acetaminop 3-30 tablet by ity of hen 5-325 00:00: mouth 4 [place] mg tablet ([facility]) [facility] times [place] daily. pregabalin 2023-0 Yes 150mg Take 1 Univ ers 150 mg 3-30 capsule by ity of capsule 00:00: mouth in [place] the [facility] morning Branch and 1 capsule in the evening. meloxicam 2023-0 Yes Univers 15 mg 3-30 ity of tablet 00:00: [place] [facility] Branch HYDROcodone 2023-0 Yes 1{tbl} Take 1 Un travis -acetaminop 3-30 tablet by ity of hen 5-325 00:00: mouth 4 [place] mg tablet ([facility]) [facility] times [place] daily. pregabalin 2023-0 Yes 150mg Take 1 Univ ers 150 mg 3-30 capsule by ity of capsule 00:00: mouth in [place] the [facility] morning Branch and 1 capsule in the evening. meloxicam 2023-0 Yes Univers 15 mg 3-30 ity of tablet 00:00: [address] Branch HYDROcodone 2023-0 Yes 1{tbl} Take 1 Un travis -acetaminop 3-30 tablet by ity of hen 5-325 00:00: mouth 4 [place] mg tablet 00 ([facility]) [facility] times [place] daily. pregabalin 2023-0 Yes 150mg Take 1 Univ ers 150 mg 3-30 capsule by ity of capsule 00:00: mouth in [place] [address] the Medical morning Branch and 1 capsule in the evening. meloxicam 2023-0 Yes Univers 15 mg 3-30 ity of tablet 00:00: [place] [facility] Branch HYDROcodone 2023-0 Yes 1{tbl} Take 1 Un travis -acetaminop 3-30 tablet by ity of hen 5-325 00:00: mouth 4 [place] mg tablet ([facility]) [facility] times [place] daily. pregabalin 2023-0 Yes 150mg Take 1 Univ ers 150 mg 3-30 capsule by ity of capsule 00:00: mouth in [place] the Medical morning Branch and 1 capsule in the evening. meloxicam 2023-0 Yes Univers 15 mg 3-30 ity of tablet 00:00: [place] [facility] Branch HYDROcodone 2023-0 Yes 1{tbl} Take 1 Un travis -acetaminop 3-30 tablet by ity of hen 5-325 00:00: mouth 4 [place] mg tablet ([facility]) [facility] times [place] daily. pregabalin 2023-0 Yes 150mg Take 1 Univ ers 150 mg 3-30 capsule by ity of capsule 00:00: mouth in [place] the [facility] morning Branch and 1 capsule in the evening. meloxicam 2023-0 Yes Univers 15 mg 3-30 ity of tablet 00:00: [place] [facility] Branch HYDROcodone 2023-0 Yes 1{tbl} Take 1 Un travis -acetaminop 3-30 tablet by ity of hen 5-325 00:00: mouth 4 [place] mg tablet ([facility]) [facility] daily. pregabalin 2023-0 Yes 150mg Take 1 Univ ers 150 mg 3-30 capsule by ity of capsule 00:00: mouth in [place] the [facility] morning Branch and 1 capsule in the evening. meloxicam 2023-0 Yes Univers 15 mg 3-30 ity of tablet 00:00: [place] [facility] Branch HYDROcodone 2023-0 Yes 1{tbl} Take 1 Un travis -acetaminop 3-30 tablet by ity of hen 5-325 00:00: mouth 4 [place] mg tablet ([facility]) [facility] times [place] daily. pregabalin 2023-0 Yes 150mg Take 1 Univ ers 150 mg 3-30 capsule by ity of capsule 00:00: mouth in [place] [address] the Medical morning Branch and 1 capsule in the evening. meloxicam 2023-0 Yes Univers 15 mg 3-30 ity of tablet 00:00: [place] [facility] Branch HYDROcodone 2023-0 Yes 1{tbl} Take 1 Un travis -acetaminop 3-30 tablet by ity of hen 5-325 00:00: mouth 4 [place] mg tablet 00 ([facility]) Medical times [place] daily. pregabalin 2023-0 Yes 150mg Take 1 Univ ers 150 mg 3-30 capsule by ity of capsule 00:00: mouth in [place] 00 the Medical morning Branch and 1 capsule in the evening. meloxicam 2023-0 Yes Univers 15 mg 3-30 ity of tablet 00:00: [place] 00 [facility] Branch HYDROcodone 2023-0 Yes 1{tbl} Take 1 Un travis -acetaminop 3-30 tablet by ity of hen 5-325 00:00: mouth 4 [place] mg tablet 00 ([facility]) Medical times [place] daily. pregabalin 2023-0 Yes 150mg Take 1 Univ ers 150 mg 3-30 capsule by ity of capsule 00:00: mouth in [place] [address] the Medical morning Branch and 1 capsule in the evening. meloxicam 2023-0 Yes Univers 15 mg 3-30 ity of tablet 00:00: [place] 00 [facility] Branch HYDROcodone 2023-0 Yes 1{tbl} Take 1 Un travis -acetaminop 3-30 tablet by ity of hen 5-325 00:00: mouth 4 [place] mg tablet 00 ([facility]) Medical times [place] daily. pregabalin 2023-0 Yes 150mg Take 1 Univ ers 150 mg 3-30 capsule by ity of capsule 00:00: mouth in [place] the Medical morning Branch and 1 capsule in the evening. meloxicam 2023-0 Yes Univers 15 mg 3-30 ity of tablet 00:00: [place] [facility] Branch HYDROcodone 2023-0 Yes 1{tbl} Take 1 Un travis -acetaminop 3-30 tablet by ity of hen 5-325 00:00: mouth 4 [place] mg tablet 00 (four) Medical times [place] daily. pregabalin 2023-0 Yes 150mg Take 1 Univ ers 150 mg 3-30 capsule by ity of capsule 00:00: mouth in [place] the Medical morning Branch and 1 capsule in the evening. meloxicam 2023-0 Yes Univers 15 mg 3-30 ity of tablet 00:00: [place] 00 [facility] Branch HYDROcodone 2023-0 Yes 1{tbl} [...] by ity of capsule 00:00: mouth in [place] the Medical morning Branch and 1 capsule in the evening. meloxicam 2023-0 Yes Univers 15 mg 3-30 ity of tablet 00:00: [place] 00 Medical Branch HYDROcodone 2023-0 Yes 1{tbl} Take 1 Un travis -acetaminop 3-30 tablet by ity of hen 5-325 00:00: mouth 4 [place] mg tablet 00 (four) Medical times Branch daily. pregabalin 2023-0 Yes 150mg Take 1 Univ ers 150 mg 3-30 capsule by ity of capsule 00:00: mouth in [place] the Medical morning Branch and 1 capsule in the evening. meloxicam 2023-0 Yes Univers 15 mg 3-30 ity of tablet 00:00: [place] 00 Medical Branch HYDROcodone 2023-0 Yes 1{tbl} Take 1 Un travis -acetaminop 3-30 tablet by ity of hen 5-325 00:00: mouth 4 [place] mg tablet 00 (four) Medical times Branch daily. pregabalin 2023-0 Yes 150mg Take 1 Univ ers 150 mg 3-30 capsule by ity of capsule 00:00: mouth in [place] the Medical morning Branch and 1 capsule in the evening. meloxicam 2023-0 Yes Univers 15 mg 3-30 ity of tablet 00:00: [place] 00 Medical Branch HYDROcodone 2023-0 Yes 1{tbl} Take 1 Un travis -acetaminop 3-30 tablet by ity of hen 5-325 00:00: mouth 4 [place] mg tablet 00 (four) Medical times [place] daily. pregabalin 2023-0 Yes 150mg Take 1 Univ ers 150 mg 3-30 capsule by ity of capsule 00:00: mouth in [place] the Medical morning Branch and 1 capsule in the evening. meloxicam 2023-0 Yes Univers 15 mg 3-30 ity of tablet 00:00: [place] [facility] Branch HYDROcodone 2023-0 Yes 1{tbl} Take 1 Un travis -acetaminop 3-30 tablet by ity of hen 5-325 00:00: mouth 4 [place] mg tablet 00 ([facility]) Medical times Branch daily. pregabalin 2023-0 Yes 150mg Take 1 Univ ers 150 mg 3-30 capsule by ity of capsule 00:00: mouth in [place] the [facility] morning Branch and 1 capsule in the evening. meloxicam 2023-0 Yes Univers 15 mg 3-30 ity of tablet 00:00: [place] [facility] Branch HYDROcodone 2023-0 Yes 1{tbl} Take 1 Un travis -acetaminop 3-30 tablet by ity of hen 5-325 00:00: mouth 4 [place] mg tablet ([facility]) Medical times [place] daily. pregabalin 2023-0 Yes 150mg Take 1 Univ ers 150 mg 3-30 capsule by ity of capsule 00:00: mouth in [place] the [facility] morning Branch and 1 capsule in the evening. meloxicam 2023-0 Yes Univers 15 mg 3-30 ity of tablet 00:00: [place] [facility] Branch HYDROcodone 2023-0 Yes 1{tbl} Take 1 Un travis -acetaminop 3-30 tablet by ity of hen 5-325 00:00: mouth 4 [place] mg tablet ([facility]) Medical times Branch daily. pregabalin 2023-0 Yes 150mg Take 1 [facility] ers 150 mg 3-30 capsule by ity of capsule 00:00: mouth in [place] the Medical morning Branch and 1 capsule in the evening. meloxicam 2023-0 Yes [facility] 15 mg 3-30 ity of tablet 00:00: [place] [facility] Branch HYDROcodone 2023-0 Yes 1{tbl} Take 1 [facility] travis -acetaminop 3-30 tablet by ity of hen 5-325 00:00: mouth 4 [place] mg tablet 00 (four) Medical times Branch daily. pregabalin 2023-0 Yes 150mg Take 1 [facility] ers 150 mg 3-30 capsule by ity of capsule 00:00: mouth in [place] the Medical morning Branch and 1 capsule in the evening. meloxicam 2023-0 Yes [facility] 15 mg 3-30 ity of tablet 00:00: [place] [facility] Branch HYDROcodone 2023-0 Yes 1{tbl} Take 1 Un travis -acetaminop 3-30 tablet by ity of hen 5-325 00:00: mouth 4 [place] mg tablet ([facility]) Medical times [place] daily. pregabalin 2023-0 Yes 150mg Take 1 [facility] ers 150 mg 3-30 capsule by ity of capsule 00:00: mouth in [place] the Medical morning Branch and 1 capsule in the evening. meloxicam 2023-0 Yes [facility] 15 mg 3-30 ity of tablet 00:00: [place] [facility] Branch HYDROcodone 2023-0 Yes 1{tbl} Take 1 Un travis -acetaminop 3-30 tablet by ity of hen 5-325 00:00: mouth 4 [place] mg tablet ([facility]) Medical times [place] daily. pregabalin 2023-0 Yes 150mg Take 1 [facility] ers 150 mg 3-30 capsule by ity of capsule 00:00: mouth in [place] the Medical morning Branch and 1 capsule in the evening. meloxicam 2023-0 Yes [facility] 15 mg 3-30 ity of tablet 00:00: [place] [facility] Branch HYDROcodone 2023-0 Yes 1{tbl} Take 1 Un travis -acetaminop 3-30 tablet by ity of hen 5-325 00:00: mouth 4 [place] mg tablet ([facility]) Medical times [place] daily. pregabalin 2023-0 Yes 150mg Take 1 [facility] ers 150 mg 3-30 capsule by ity of capsule 00:00: mouth in [place] the Medical morning Branch and 1 capsule in the evening. meloxicam 2023-0 Yes [facility] 15 mg 3-30 ity of tablet 00:00: [place] [facility] Branch HYDROcodone 2023-0 Yes 1{tbl} Take 1 Un travis -acetaminop 3-30 tablet by ity of hen 5-325 00:00: mouth 4 [place] mg tablet 00 ([facility]) Medical times [place] daily. pregabalin 2023-0 Yes 150mg Take 1 [facility] ers 150 mg 3-30 capsule by ity of capsule 00:00: mouth in [place] 00 the Medical morning Branch and 1 capsule in the evening. meloxicam 2023-0 Yes [facility] 15 mg 3-30 ity of tablet 00:00: [place] 00 Medical Branch HYDROcodone 2023-0 Yes 1{tbl} Take 1 Un tarvis -acetaminop 3-30 tablet by ity of hen 5-325 00:00: mouth 4 [place] mg tablet 00 (four) Medical times Branch daily. pregabalin 2023-0 Yes 150mg Take 1 [facility] ers 150 mg 3-30 capsule by ity of capsule 00:00: mouth in [place] 00 the Medical morning Branch and 1 capsule in the evening. meloxicam 2023-0 Yes [facility] 15 mg 3-30 ity of tablet 00:00: [place] 00 Medical Branch HYDROcodone 2023-0 Yes 1{tbl} Take 1 Un travis -acetaminop 3-30 tablet by ity of hen 5-325 00:00: mouth 4 [place] mg tablet 00 (four) Medical times Branch daily. pregabalin 2023-0 Yes 150mg Take 1 [facility] ers 150 mg 3-30 capsule by ity of capsule 00:00: mouth in [place] 00 the Medical morning Branch and 1 capsule in the evening. meloxicam 2023-0 Yes [facility] 15 mg 3-30 ity of tablet 00:00: [place] 00 Medical Branch HYDROcodone 2023-0 Yes 1{tbl} [...] TABLET BY ity of tablet 00:00: MOUTH [place] 00 EVERY DAY Medical AT BEDTIME Branch FOR 30 DAYS cyclobenzap 2023-0 Yes TAKE 1 [facility] ers rine 10 mg 3-15 TABLET BY ity of tablet 00:00: MOUTH [place] 00 THREE Medical TIMES A Branch DAY NEEDED FOR 30 DAYS amitriptyli 2023-0 Yes TAKE 1 [facility] ers ne 50 mg 3-15 TABLET BY ity of tablet 00:00: MOUTH [place] 00 EVERY DAY Medical AT [facility] FOR 30 DAYS cyclobenzap 3-0 Yes TAKE 1 [facility] ers rine 10 mg 3-15 TABLET BY ity of tablet 00:00: MOUTH THREE Medical TIMES A Branch DAY NEEDED FOR 30 DAYS amitriptyli 2023-0 Yes TAKE 1 [facility] ers ne 50 mg 3-15 TABLET BY ity of tablet 00:00: [facility] EVERY DAY Medical [facility] Branch FOR 30 DAYS cyclobenzap 2022-0 Yes TAKE 1 [facility] ers rine 10 mg 3-15 TABLET BY ity of tablet 00:00: MOUTH THREE Medical TIMES A Branch DAY NEEDED FOR 30 DAYS amitriptyli 3-0 Yes TAKE 1 [facility] ers ne 50 mg 3-15 TABLET BY ity of tablet 00:00: [facility] EVERY DAY Medical AT [facility] FOR 30 DAYS cyclobenzap 2022-0 Yes TAKE 1 [facility] ers rine 10 mg 3-15 TABLET BY ity of tablet 00:00: [facility] THREE Medical TIMES A Branch DAY NEEDED FOR 30 DAYS amitriptyli 3-0 Yes TAKE 1 [facility] ers ne 50 mg 3-15 TABLET BY ity of tablet 00:00: [facility] EVERY DAY Medical AT [facility] FOR 30 DAYS cyclobenzap 2022-0 Yes TAKE 1 [facility] ers rine 10 mg 3-15 TABLET BY ity of tablet 00:00: [facility] THREE Medical TIMES A Branch DAY NEEDED FOR 30 DAYS amitriptyli 2023-0 Yes TAKE 1 [facility] ers ne 50 mg 3-15 TABLET BY ity of tablet 00:00: [facility] EVERY DAY Medical AT [facility] FOR 30 DAYS cyclobenzap 3-0 Yes TAKE 1 [facility] ers rine 10 mg 3-15 TABLET BY ity of tablet 00:00: [facility] THREE Medical TIMES A Branch DAY NEEDED FOR 30 DAYS amitriptyli 2023-0 Yes TAKE 1 [facility] ers ne 50 mg 3-15 TABLET BY ity of tablet 00:00: [facility] EVERY DAY Medical AT BEDTIME Branch FOR 30 DAYS cyclobenzap 3-0 Yes TAKE 1 [facility] ers rine 10 mg 3-15 TABLET BY ity of tablet 00:00: [facility] THREE Medical TIMES A Branch DAY NEEDED [...] tablet 00:00: MOUTH EVERY DAY Medical AT [facility] Branch FOR 30 DAYS cyclobenzap 3-0 Yes TAKE 1 Univ ers rine 10 mg 3-15 TABLET BY ity of tablet 00:00: MOUTH THREE Medical TIMES A Branch DAY NEEDED FOR 30 DAYS amitriptyli 3-0 Yes TAKE 1 [facility] ers ne 50 mg 3-15 TABLET BY ity of tablet 00:00: MOUTH EVERY DAY Medical AT [facility] FOR 30 DAYS cyclobenzap 3-0 Yes TAKE 1 [facility] ers rine 10 mg 3-15 TABLET BY ity of tablet 00:00: MOUTH THREE Medical TIMES A Branch DAY NEEDED FOR 30 DAYS amitriptyli 2023-0 Yes TAKE 1 [facility] ers ne 50 mg 3-15 TABLET BY ity of tablet 00:00: [facility] EVERY DAY Medical AT [facility] FOR 30 DAYS cyclobenzap 3-0 Yes TAKE 1 [facility] ers rine 10 mg 3-15 TABLET BY ity of tablet 00:00: MOUTH THREE Medical TIMES A Branch DAY NEEDED FOR 30 DAYS amitriptyli 2023-0 Yes TAKE 1 [facility] ers ne 50 mg 3-15 TABLET BY ity of tablet 00:00: MOUTH EVERY DAY Medical AT BEDTIME [place] FOR 30 DAYS cyclobenzap 3-0 Yes TAKE [...] 3-15 TABLET BY ity of tablet 00:00: [facility] EVERY DAY Medical AT BEDTIME Branch FOR 30 DAYS cyclobenzap 3-0 Yes TAKE 1 [facility] ers rine 10 mg 3-15 TABLET BY ity of tablet 00:00: [facility] THREE Medical TIMES A Branch DAY NEEDED FOR 30 DAYS amitriptyli 2023-0 Yes TAKE 1 [facility] ers ne 50 mg 3-15 TABLET BY ity of tablet 00:00: [facility] EVERY DAY Medical AT [facility] Branch FOR 30 DAYS cyclobenzap 3-0 Yes TAKE 1 [facility] ers rine 10 mg 3-15 TABLET BY ity of tablet 00:00: [facility] THREE Medical TIMES A Branch DAY NEEDED FOR 30 DAYS amitriptyli 3-0 Yes TAKE 1 [facility] ers ne 50 mg 3-15 TABLET BY ity of tablet 00:00: [facility] EVERY DAY Medical AT BEDTIME [place] FOR 30 DAYS cyclobenzap 3-0 Yes TAKE 1 [facility] ers rine 10 mg 3-15 TABLET BY ity of tablet 00:00: [facility] THREE Medical TIMES A Branch DAY NEEDED FOR 30 DAYS amitriptyli 2023-0 Yes TAKE 1 [facility] ers ne 50 mg 3-15 TABLET BY ity of tablet 00:00: [facility] EVERY DAY Medical AT [facility] FOR 30 DAYS cyclobenzap 3-0 Yes TAKE 1 [facility] ers rine 10 mg 3-15 TABLET BY ity of tablet 00:00: [facility] THREE Medical TIMES A Branch DAY NEEDED FOR 30 DAYS amitriptyli 2023-0 Yes TAKE 1 [facility] ers ne 50 mg 3-15 TABLET BY ity of tablet 00:00: [facility] EVERY DAY Medical AT BEDTIME [place] FOR 30 DAYS cyclobenzap 2023-0 Yes TAKE 1 [facility] ers rine 10 mg 3-15 TABLET BY ity of tablet 00:00: [facility] THREE Medical TIMES A Branch DAY NEEDED FOR 30 DAYS amitriptyli 2023-0 Yes TAKE 1 [facility] ers ne 50 mg 3-15 TABLET BY ity of tablet 00:00: [facility] EVERY DAY Medical AT BEDTIME Branch FOR 30 DAYS cyclobenzap 2023-0 Yes TAKE 1 [facility] ers rine 10 mg 3-15 TABLET BY ity of tablet 00:00: THREE Medical TIMES A Branch DAY NEEDED FOR 30 DAYS amitriptyli 2023-0 Yes TAKE 1 [facility] ers ne 50 mg 3-15 TABLET BY ity of tablet 00:00: [facility] EVERY DAY Medical AT BEDTIME Branch FOR 30 DAYS cyclobenzap 2023-0 Yes TAKE 1 [facility] ers rine 10 mg 3-15 TABLET BY ity of tablet 00:00: [facility] THREE Medical TIMES A Branch DAY NEEDED FOR 30 DAYS amitriptyli 2023-0 Yes TAKE 1 [facility] ers ne 50 mg 3-15 TABLET BY ity of tablet 00:00: [facility] EVERY DAY Medical AT BEDTIME Branch FOR 30 DAYS cyclobenzap 3-0 Yes TAKE 1 [facility] ers rine 10 mg 3-15 TABLET BY ity of tablet 00:00: [facility] THREE Medical TIMES A Branch DAY NEEDED FOR 30 DAYS amitriptyli 2023-0 Yes TAKE 1 [facility] ers ne 50 mg 3-15 TABLET BY ity of tablet 00:00: [facility] EVERY DAY Medical AT BEDTIME Branch FOR 30 DAYS cyclobenzap 3-0 Yes TAKE 1 [facility] ers rine 10 mg 3-15 TABLET BY ity of tablet 00:00: [facility] THREE Medical TIMES A Branch DAY NEEDED FOR 30 DAYS amitriptyli 2023-0 Yes TAKE 1 [facility] ers ne 50 mg 3-15 TABLET BY ity of tablet 00:00: [facility] EVERY DAY Medical AT BEDTIME Branch FOR 30 DAYS cyclobenzap 2023-0 Yes TAKE 1 [facility] ers rine 10 mg 3-15 TABLET BY ity of tablet 00:00: [facility] THREE Medical TIMES A Branch DAY NEEDED FOR 30 DAYS amitriptyli 2023-0 Yes TAKE 1 [facility] ers ne 50 mg 3-15 TABLET BY ity of tablet 00:00: [facility] EVERY DAY Medical AT BEDTIME Branch FOR 30 DAYS cyclobenzap 2023-0 Yes TAKE 1 [facility] ers rine 10 mg 3-15 TABLET BY ity of tablet 00:00: [facility] THREE Medical TIMES A Branch DAY NEEDED FOR 30 DAYS amitriptyli 2023-0 Yes TAKE 1 [facility] ers ne 50 mg 3-15 TABLET BY ity of tablet 00:00: [facility] EVERY DAY Medical AT BEDTIME Branch FOR [...] 3-15 TABLET BY ity of tablet 00:00: [facility] EVERY DAY Medical AT BEDTIME Branch FOR 30 DAYS cyclobenzap 2023-0 Yes TAKE 1 [facility] ers rine 10 mg 3-15 TABLET BY ity of tablet 00:00: [facility] THREE Medical TIMES A Branch DAY NEEDED FOR 30 DAYS amitriptyli 2023-0 Yes TAKE 1 [facility] ers ne 50 mg 3-15 TABLET BY ity of tablet 00:00: [facility] EVERY DAY Medical AT BEDTIME Branch FOR 30 DAYS cyclobenzap 2023-0 Yes TAKE 1 [facility] ers rine 10 mg 3-15 TABLET BY ity of tablet 00:00: MOUTH THREE Medical TIMES A Branch DAY NEEDED FOR 30 DAYS amitriptyli 2023-0 Yes TAKE 1 [facility] ers ne 50 mg 3-15 TABLET BY ity of tablet 00:00: [facility] EVERY DAY Medical AT BEDTIME Branch FOR [...] 30 DAYS cyclobenzap 2022-0 Yes TAKE 1 [facility] ers rine 10 mg 3-15 TABLET BY ity of tablet 00:00: MOUTH 00 THREE Medical TIMES A DAY NEEDED FOR 30 DAYS amitriptyli 2022-0 Yes TAKE 1 [facility] ers ne 50 mg 3-15 TABLET BY ity of tablet 00:00: MOUTH [place] 00 EVERY DAY Medical AT [facility] FOR 30 DAYS NaCl 0.9% 0 2022- No 500mL at 999 [facility] ers (NS) bolus 11-03 mL/hr, [...] IV ity of (BENADRYL) 15:00: 15:18 [place], [place] injection 00 :00 ONCE, 1 Medical 25 mg dose, On Branch Wed11/03/22 at 0900, STAT LORazepam 2022-0 Yes [id number] 1mg Take 1 U nivers (ATIVAN) 1 11-03 tablet by ity of mg tablet 00:00: mouth 2 00 (two) Medical times [place] daily as needed for Anxiety or Agitation. hydrOXYzine 2022-0 Yes [id number] 25mg Take 1 Univers (VISTARIL) 2-28 capsule by ity of 25 mg 00:00: mouth 3 [place] capsule 00 (three) Medical times [place] daily as needed for Anxiety. LORazepam 2022-0 Yes [id number] 1mg Take 1 U nivers (ATIVAN) 1 2-28 tablet by ity of mg tablet 00:00: mouth 2 [place] 00 (two) Medical times [place] daily as needed for Anxiety or Agitation. hydrOXYzine 2022-0 Yes [id number] 25mg Take 1 [facility] (VISTARIL) 2-28 capsule by ity of 25 mg 00:00: mouth 3 [place] capsule 00 (three) Medical times Branch daily as needed for Anxiety. LORazepam 2023-0 Yes [id number] 1mg Take 1 U nivers (ATIVAN) 1 2-28 tablet by ity of mg tablet 00:00: mouth 2 [place] 00 (two) Medical times Branch daily as needed for Anxiety or Agitation. hydrOXYzine 2023-0 Yes [id number] 25mg Take 1 [facility] (VISTARIL) 2-28 capsule by ity of 25 mg 00:00: mouth 3 [place] capsule 00 (three) Medical times Branch daily as needed for Anxiety. LORazepam 2023-0 Yes [id number] 1mg Take 1 U nivers (ATIVAN) 1 2-28 tablet by ity of mg tablet 00:00: mouth 2 [place] 00 (two) Medical times Branch daily as needed for Anxiety or Agitation. hydrOXYzine 2023-0 Yes [id number] 25mg Take 1 [facility] (VISTARIL) 2-28 capsule by ity of 25 mg 00:00: mouth 3 [place] capsule 00 (three) Medical times Branch daily as needed for Anxiety. LORazepam 2023-0 Yes [id number] 1mg Take 1 U nivers (ATIVAN) 1 2-28 tablet by ity of mg tablet 00:00: mouth 2 [place] 00 (two) Medical times Branch daily as needed for Anxiety or Agitation. hydrOXYzine 2023-0 Yes [id number] 25mg Take 1 [facility] (VISTARIL) 2-28 capsule by ity of 25 mg 00:00: mouth 3 [place] capsule 00 (three) Medical times Branch daily as needed for Anxiety. LORazepam 2023-0 Yes [id number] 1mg Take 1 U nivers (ATIVAN) 1 2-28 tablet by ity of mg tablet 00:00: mouth 2 [place] 00 (two) Medical times Branch daily as needed for Anxiety or Agitation. hydrOXYzine 2023-0 Yes [id number] 25mg Take 1 [facility] (VISTARIL) 2-28 capsule by ity of 25 mg 00:00: mouth 3 [place] capsule 00 (three) Medical times Branch daily as needed for Anxiety. LORazepam 2023-0 Yes [id number] 1mg Take 1 U nivers (ATIVAN) 1 2-28 tablet by ity of mg tablet 00:00: mouth 2 00 (two) Medical times Branch daily as needed for Anxiety or Agitation. hydrOXYzine 2023-0 Yes [id number] 25mg Take 1 [facility] (VISTARIL) 2-28 capsule by ity of 25 mg 00:00: mouth 3 [place] capsule 00 (three) Medical times Branch daily as needed for Anxiety. LORazepam 2023-0 Yes [id number] 1mg Take 1 U nivers (ATIVAN) 1 2-28 tablet by ity of mg tablet 00:00: mouth 2 [place] 00 (two) Medical times Branch daily as needed for Anxiety or Agitation. hydrOXYzine 2023-0 Yes [id number] 25mg Take 1 [facility] (VISTARIL) 2-28 capsule by ity of 25 mg 00:00: mouth 3 [place] capsule 00 (three) Medical times Branch daily as needed for Anxiety. LORazepam 2023-0 Yes [id number] 1mg Take 1 U nivers (ATIVAN) 1 2-28 tablet by ity of mg tablet 00:00: mouth 2 (two) Medical times Branch daily as needed for Anxiety or Agitation. hydrOXYzine 2023-0 Yes [id number] 25mg Take 1 [facility] (VISTARIL) 2-28 capsule by ity of 25 mg 00:00: mouth 3 [place] capsule 00 (three) Medical times Branch daily as needed for Anxiety. LORazepam 2023-0 Yes [id number] 1mg Take 1 U nivers (ATIVAN) 1 2-28 tablet by ity of mg tablet 00:00: mouth 2 (two) Medical times Branch daily as needed for Anxiety or Agitation. hydrOXYzine 2023-0 Yes [id number] 25mg Take 1 [facility] (VISTARIL) 2-28 capsule by ity of 25 mg 00:00: mouth 3 [place] capsule 00 (three) Medical times Branch daily as needed for Anxiety. LORazepam 2023-0 Yes [id number] 1mg Take 1 U nivers (ATIVAN) 1 2-28 tablet by ity of mg tablet 00:00: mouth 2 [place] 00 (two) Medical times Branch daily as needed for Anxiety or Agitation. hydrOXYzine 2023-0 Yes [id number] 25mg Take 1 [facility] (VISTARIL) 2-28 capsule by ity of 25 mg 00:00: mouth 3 [place] capsule 00 (three) Medical times Branch daily as needed for Anxiety. LORazepam 2023-0 Yes [id number] 1mg Take 1 U nivers (ATIVAN) 1 2-28 tablet by ity of mg tablet 00:00: mouth 2 [place] 00 (two) Medical times Branch daily as needed for Anxiety or Agitation. hydrOXYzine 2023-0 Yes [id number] 25mg Take 1 [facility] (VISTARIL) 2-28 capsule by ity of 25 mg 00:00: mouth 3 [place] capsule 00 (three) Medical times Branch daily as needed for Anxiety. LORazepam 2023-0 Yes [id number] 1mg Take 1 U nivers (ATIVAN) 1 2-28 tablet by ity of mg tablet 00:00: mouth 2 [place] 00 (two) Medical times Branch daily as needed for Anxiety or Agitation. hydrOXYzine 2023-0 Yes [id number] 25mg Take 1 [facility] (VISTARIL) 2-28 capsule by ity of 25 mg 00:00: mouth 3 [place] capsule 00 (three) Medical times Branch daily as needed for Anxiety. LORazepam 2023-0 Yes [id number] 1mg Take 1 U nivers (ATIVAN) 1 2-28 tablet by ity of mg tablet 00:00: mouth 2 (two) Medical times Branch daily as needed for Anxiety or Agitation. hydrOXYzine 2023-0 Yes [id number] 25mg Take 1 [facility] (VISTARIL) 2-28 capsule by ity of 25 mg 00:00: mouth 3 [place] capsule 00 (three) Medical times Branch daily as needed for Anxiety. LORazepam 2023-0 Yes [id number] 1mg Take 1 [facility] nivers (ATIVAN) 1 2-28 tablet by ity of mg tablet 00:00: mouth 2 [place] 00 (two) Medical times Branch daily as needed for Anxiety or Agitation. hydrOXYzine 2023-0 Yes [id number] 25mg Take 1 [facility] (VISTARIL) 2-28 capsule by ity of 25 mg 00:00: mouth 3 [place] capsule 00 (three) Medical times Branch daily as needed for Anxiety. LORazepam 2023-0 Yes [id number] 1mg Take 1 U nivers (ATIVAN) 1 2-28 tablet by ity of mg tablet 00:00: mouth 2 [place] 00 (two) Medical times Branch daily as needed for Anxiety or Agitation. hydrOXYzine 2023-0 Yes [id number] 25mg Take 1 [facility] (VISTARIL) 2-28 capsule by ity of 25 mg 00:00: mouth 3 [place] capsule 00 (three) Medical times Branch daily as needed for Anxiety. LORazepam 2023-0 Yes [id number] 1mg Take 1 U nivers (ATIVAN) 1 2-28 tablet by ity of mg tablet 00:00: mouth 2 [place] 00 (two) Medical times Branch daily as needed for Anxiety or Agitation. hydrOXYzine 2023-0 Yes [id number] 25mg Take 1 [facility] (VISTARIL) 2-28 capsule by ity of 25 mg 00:00: mouth 3 [place] capsule 00 (three) Medical times Branch daily as needed for Anxiety. LORazepam 2023-0 Yes [id number] 1mg Take 1 [facility] nivers (ATIVAN) 1 2-28 tablet by ity of mg tablet 00:00: mouth 2 00 (two) Medical times Branch daily as needed for Anxiety or Agitation. hydrOXYzine 2023-0 Yes [id number] 25mg Take 1 [facility] (VISTARIL) 2-28 capsule by ity of 25 mg 00:00: mouth 3 [place] capsule 00 (three) Medical times Branch daily as needed for Anxiety. LORazepam 2023-0 Yes [id number] 1mg Take 1 U nivers (ATIVAN) 1 2-28 tablet by ity of mg tablet 00:00: mouth 2 00 (two) Medical times Branch daily as needed for Anxiety or Agitation. hydrOXYzine 2023-0 Yes [id number] 25mg Take 1 [facility] (VISTARIL) 2-28 capsule by ity of 25 mg 00:00: mouth 3 [place] capsule 00 (three) Medical times Branch daily as needed for Anxiety. LORazepam 2023-0 Yes [id number] 1mg Take 1 U nivers (ATIVAN) 1 2-28 tablet by ity of mg tablet 00:00: mouth 2 [place] 00 (two) Medical times Branch daily as needed for Anxiety or Agitation. hydrOXYzine 2023-0 Yes [id number] 25mg Take 1 [facility] (VISTARIL) 2-28 capsule by ity of 25 mg 00:00: mouth 3 [place] capsule 00 (three) Medical times Branch daily as needed for Anxiety. LORazepam 2023-0 Yes [id number] 1mg Take 1 U nivers (ATIVAN) 1 2-28 tablet by ity of mg tablet 00:00: mouth 2 [place] 00 (two) Medical times Branch daily as needed for Anxiety or Agitation. hydrOXYzine 2023-0 Yes [id number] 25mg Take 1 [facility] (VISTARIL) 2-28 capsule by ity of 25 mg 00:00: mouth 3 [place] capsule 00 (three) Medical times Branch daily as needed for Anxiety. LORazepam 2023-0 Yes [id number] 1mg Take 1 U nivers (ATIVAN) 1 2-28 tablet by ity of mg tablet 00:00: mouth 2 [place] 00 (two) Medical times Branch daily as needed for Anxiety or Agitation. hydrOXYzine 2023-0 Yes [id number] 25mg Take 1 [facility] (VISTARIL) 2-28 capsule by ity of 25 mg 00:00: mouth 3 [place] capsule 00 (three) Medical times Branch daily as needed for Anxiety. LORazepam 2023-0 Yes [id number] 1mg Take 1 U nivers (ATIVAN) 1 2-28 tablet by ity of mg tablet 00:00: mouth 2 [place] 00 (two) Medical times Branch daily as needed for Anxiety or Agitation. hydrOXYzine 2023-0 Yes [id number] 25mg Take 1 Univers (VISTARIL) 2-28 capsule by ity of 25 mg 00:00: mouth 3 [place] capsule 00 (three) Medical times Branch daily as needed for Anxiety. LORazepam 2023-0 Yes [id number] 1mg Take 1 U nivers (ATIVAN) 1 2-28 tablet by ity of mg tablet 00:00: mouth 2 [place] 00 (two) Medical times Branch daily as needed for Anxiety or Agitation. hydrOXYzine 2023-0 Yes [id number] 25mg Take 1 [facility] (VISTARIL) 2-28 capsule by ity of 25 mg 00:00: mouth 3 [place] capsule 00 (three) Medical times Branch daily as needed for Anxiety. LORazepam 2023-0 Yes [id number] 1mg Take 1 U nivers (ATIVAN) 1 2-28 tablet by ity of mg tablet 00:00: mouth 2 [place] 00 (two) Medical times Branch daily as needed for Anxiety or Agitation. LORazepam 2023-0 Yes [id number] 1mg Take 1 U nivers (ATIVAN) 1 2-28 tablet by ity of mg tablet 00:00: mouth 2 [place] 00 (two) Medical times Branch daily as needed for Anxiety or Agitation. LORazepam 2023-0 Yes [id number] 1mg Take 1 U nivers (ATIVAN) 1 2-28 tablet by ity of mg tablet 00:00: mouth 2 [place] 00 (two) Medical times Branch daily as needed for Anxiety or Agitation. hydrOXYzine 2023-0 Yes [id number] 25mg Take 1 [facility] (VISTARIL) 2-28 capsule by ity of 25 mg 00:00: mouth 3 [place] capsule 00 (three) Medical times Branch daily as needed for Anxiety. LORazepam 2023-0 Yes [id number] 1mg Take 1 U nivers (ATIVAN) 1 2-28 tablet by ity of mg tablet 00:00: mouth 2 00 (two) Medical times Branch daily as needed for Anxiety or Agitation. hydrOXYzine 2023-0 Yes [id number] 25mg Take 1 [facility] (VISTARIL) 2-28 capsule by ity of 25 mg 00:00: mouth 3 [place] capsule 00 (three) Medical times Branch daily as needed for Anxiety. LORazepam 2023-0 Yes [id number] 1mg Take 1 [facility] nivers (ATIVAN) 1 2-28 tablet by ity of mg tablet 00:00: mouth 2 00 (two) Medical times Branch daily as needed for Anxiety or Agitation. hydrOXYzine 2023-0 Yes [id number] 25mg Take 1 [facility] (VISTARIL) 2-28 capsule by ity of 25 mg 00:00: mouth 3 [place] capsule 00 (three) Medical times Branch daily as needed for Anxiety. LORazepam 2023-0 Yes [id number] 1mg Take 1 U nivers (ATIVAN) 1 2-28 tablet by ity of mg tablet 00:00: mouth 2 [place] 00 (two) Medical times Branch daily as needed for Anxiety or Agitation. hydrOXYzine 2023-0 Yes [id number] 25mg Take 1 [facility] (VISTARIL) 2-28 capsule by ity of 25 mg 00:00: mouth 3 [place] capsule 00 (three) Medical times Branch daily as needed for Anxiety. LORazepam 2023-0 Yes [id number] 1mg Take 1 U nivers (ATIVAN) 1 2-28 tablet by ity of mg tablet 00:00: mouth 2 [place] 00 (two) Medical times Branch daily as needed for Anxiety or Agitation. hydrOXYzine 2023-0 Yes [id number] 25mg Take 1 [facility] (VISTARIL) 2-28 capsule by ity of 25 mg 00:00: mouth 3 [place] capsule 00 (three) Medical times Branch daily as needed for Anxiety. LORazepam 2023-0 Yes [id number] 1mg Take 1 U nivers (ATIVAN) 1 2-28 tablet by ity of mg tablet 00:00: mouth 2 [place] 00 (two) Medical times Branch daily as needed for Anxiety or Agitation. hydrOXYzine 2023-0 Yes [id number] 25mg Take 1 [facility] (VISTARIL) 2-28 capsule by ity of 25 mg 00:00: mouth 3 [place] capsule 00 (three) Medical times Branch daily as needed for Anxiety. LORazepam 3-0 Yes [id number] 1mg Take 1 [facility] nivers (ATIVAN) 1 2-28 tablet by ity of mg tablet 00:00: mouth 2 00 (two) Medical times Branch daily as needed for Anxiety or Agitation. hydrOXYzine 3-0 Yes [id number] 25mg Take 1 [facility] (VISTARIL) 2-28 capsule by ity of 25 mg 00:00: mouth 3 [place] capsule 00 (three) Medical times Branch daily as needed for Anxiety. LORazepam 3-0 Yes [id number] 1mg Take 1 U nivers (ATIVAN) 1 2-28 tablet by ity of mg tablet 00:00: mouth 2 00 (two) Medical times Branch daily as needed for Anxiety or Agitation. hydrOXYzine 2023-0 Yes [id number] 25mg Take 1 [facility] (VISTARIL) 2-28 capsule by ity of 25 mg 00:00: mouth 3 [place] capsule 00 (three) Medical times Branch daily as needed for Anxiety. hydrOXYzine 2023-0 3- No [id number] 25mg Take 1 [facility] (VISTARIL) 2-28 06-27 capsule by it y of 25 mg 00:00: 00:00 mouth 3 [place] capsule 00 :00 (three) Medical times Branch daily as needed for Anxiety. iopamidol 3-0 2023- No [id number] 75mL 75 mL, Univers (ISOVUE 2-07 02-07 Intravenou ity o f 370-500 mL) 09:30: 21:29 s, ONCE, 1 [place] injection 00 :00 dose, On Medica l 75 mL [facility] 10/13/22 Branch at 0330, Routine dicyclomine 2022- No 20mg 20 mg, Uni vers (BENTYL) 10-13 Intramuscu ity of injection 09:15: 21:14 [place], ONCE, [place] 20 mg 00 :00 1 dose, On Medical [facility] 10/13/22 Branch at 0315, Routine famotidine Yes TAKE 1 Unive rs 20 mg 1-25 TABLET BY ity of tablet 00:00: MOUTH IN [place] [id number] THE [facility] MORNING [place] AND IN THE EVENING FOR 5 DAYS famotidine 0 Yes TAKE 1 [facility]ive rs 20 mg 1-25 TABLET BY ity of tablet 00:00: MOUTH IN [address] MORNING [place] AND IN THE EVENING FOR 5 DAYS famotidine 0 Yes TAKE 1 [facility] 20 mg 1-25 TABLET BY ity of tablet 00:00: MOUTH IN [address] MORNING [place] AND IN THE EVENING FOR 5 DAYS famotidine 0 Yes TAKE 1 [facility] 20 mg 1-25 TABLET BY ity of tablet 00:00: MOUTH IN [place] [address] [facility] MORNING [place] AND IN THE EVENING FOR 5 DAYS famotidine 0 Yes TAKE 1 [facility] 20 mg 1-25 TABLET BY ity of tablet 00:00: MOUTH IN [place] [address] THE [facility] MORNING [place] AND IN THE EVENING FOR 5 DAYS famotidine 0 Yes TAKE 1 [facility] 20 mg 1-25 TABLET BY ity of tablet 00:00: MOUTH IN [address] MORNING [place] AND IN THE EVENING FOR 5 DAYS famotidine 0 Yes TAKE 1 [facility] 20 mg 1-25 TABLET BY ity of tablet 00:00: MOUTH IN [address] MORNING [place] AND IN THE EVENING FOR 5 DAYS famotidine 2022-0 Yes TAKE 1 [facility] 20 mg 1-25 TABLET BY ity of tablet 00:00: MOUTH IN [address] MORNING [place] AND IN THE EVENING FOR 5 DAYS famotidine 2022-0 Yes TAKE 1 [facility] 20 mg 1-25 TABLET BY ity of tablet 00:00: MOUTH IN [place] 00 THE Medical MORNING Branch AND IN THE EVENING FOR 5 DAYS famotidine 0 Yes TAKE 1 [facility] 20 mg 1-25 TABLET BY ity of tablet 00:00: MOUTH IN [place] 00 THE Medical MORNING Branch AND IN THE EVENING FOR 5 DAYS famotidine 0 Yes TAKE 1 [facility] 20 mg 1-25 TABLET BY ity of tablet 00:00: MOUTH IN [place] 00 THE Medical MORNING Branch AND IN THE EVENING FOR 5 DAYS famotidine 2022-0 Yes TAKE 1 [facility] 20 mg 1-25 TABLET BY ity of tablet 00:00: MOUTH IN [place] 00 THE Medical MORNING Branch AND IN THE EVENING FOR 5 DAYS famotidine 2022- No TAKE 1 [facility] 20 mg 1-25 05-12 TABLET BY ity of tablet 00:00: 00:00 MOUTH IN [place] 00 :00 THE Medical MORNING Branch AND [...] at 1830, 1 mL predniSONE 2022- No [id number] 40mg Take 2 [facility] 20 mg 09-10 tablets by ity of tablet 00:00: 05:59 mouth in [place] 00 :00 the Medical morning Branch for 5 days. famotidine 0 2022- No [id number] 20mg Take 1 [facility] (PEPCID) 20 09-09 tablet by it y of mg tablet 00:00: 05:59 mouth in [facility] 00 :00 the Medical morning Branch and 1 tablet in the evening. Do all this for 5 days. HYDROcodone 2021-09- No 1{tbl} 1 tablet, [facility] -acetaminop 2 12-13 Oral, ity of hen (NORCO) 00:00: 22:59 ONCE, 1 [place] 10-325 mg 00 :00 dose, On Medica l tablet 1 Tue Branch tablet 08/18/22 at 1800, Routine oseltamivir 2021-09- No [id number] 75mg Take 1 [facility] (TAMIFLU) 10-19 capsule [...] 500 mg ity of tablet 00:00: tablet [place] [facility] naproxen 2021-0 2023- No naproxen [facility] 500 mg 9-16 05-12 500 mg ity of tablet 00:00: 00:00 tablet [place] 00 : Medical Branch prazosin 2 2021-0 Yes 2mg Take 1 [facility] mg capsule 9-15 capsule by ity of 00:00: mouth. [place] [facility] prazosin 2 2021-0 Yes 2mg Take 1 [facility] mg capsule 9-15 capsule by ity of 00:00: mouth. [place] [facility] prazosin 2 2021-0 Yes 2mg Take 1 [facility] mg capsule 9-15 capsule by ity of 00:00: mouth. [place] [facility] prazosin 2 2021-0 Yes 2mg Take 1 [facility] mg capsule 9-15 capsule by ity of 00:00: mouth. [place] [facility] prazosin 2 2021-0 Yes 2mg Take 1 [facility] mg capsule 9-15 capsule by ity of 00:00: mouth. [place] [facility] prazosin 2 2021-0 Yes 2mg Take 1 [facility] mg capsule 9-15 capsule by ity of 00:00: mouth. [place] [facility] prazosin 2 2021-0 Yes 2mg Take 1 [facility] mg capsule 9-15 capsule by ity of 00:00: mouth. [place] [facility] prazosin 2 2021-0 Yes 2mg Take 1 [facility] mg capsule 9-15 capsule by ity of 00:00: mouth. [place] [facility] prazosin 2 2021-0 Yes 2mg Take 1 [facility] mg capsule 9-15 capsule by ity of 00:00: mouth. [place] [facility] prazosin 2 2021-0 Yes 2mg [...] [place] 00 Medical Branch HYDROcodone 2021- No [id number] 1{tbl} Q6H Take 1 [facility] -acetaminop 5-17 05-[address] [facility] ([place]) 13:50: 00:00 mouth [facility] 10-325 mg 15 :00 every 6 l per tablet (six) hours as needed .acute pain. prn HYDROcodone 2021- No [id number] 1{tbl} Q6H Take 1 [facility] -acetaminop 5-17 05-[address] [facility] ([place]) 13:50: 00:00 mouth [facility] 10-325 mg 15 :00 every 6 l per tablet (six) hours as needed .acute pain. prn [place]DROcodone 2021- No [id number] 1{tbl} Q6H Take 1 [facility] -acetaminop 5-17 05-[address] [facility] [employer] ([place]) 13:50: 00:00 mouth [facility] 10-325 mg 15 :00 every 6 l per tablet (six) hours as needed .acute pain. prn HYDROcodone 2021- No [id number] 1{tbl} Q6H Take 1 [facility] -acetaminop 5-17 05-[address] [facility] ([place]) 13:50: 00:00 mouth [facility] 10-325 mg 15 :00 every 6 l per tablet (six) hours as needed .acute pain. prn [place]DROcodone 2021- No [id number] 1{tbl} Q6H Take 1 [facility] -acetaminop 5-17 05-[address] [facility] ([place]) 13:50: 00:00 mouth [facility] 10-325 mg [...] hours as needed. cyclobenzap 2022-0 Yes 10mg Q.[id number] Take 10 mg [facility] 5-17 [id number] [facility] [address] ([place]) 13:09: 3D [...] hours as needed. cyclobenzap 2022-0 Yes 10mg Q.[id number] Take 10 mg [facility] 5-17 [id number] [address] [facility] [address] ([place]) 13:09: 3D [...] hours as needed. cyclobenzap 2022-0 Yes 10mg Q.[id number] Take 10 mg [facility] 5-17 [id number] [address] [facility] [address] ([place]) 13:09: 3D [...] hours as needed. cyclobenzap 2022-0 Yes 10mg Q.[id number] Take 10 mg [facility] 5-17 [id number] [address] [facility] [address] ([place]) 13:09: 3D [...] hours as needed. cyclobenzap 2022-0 Yes 10mg Q.[id number] Take 10 mg [facility] 5-17 [id number] [facility] [address] ([place]) 13:09: 3D [...] hours as needed. cyclobenzap 2022-0 Yes 10mg Q.[id number] Take 10 mg [facility] 5-17 [id number] [facility] [address] ([place]) 13:09: 3D [...] hours as needed. cyclobenzap 2022-0 Yes 10mg Q.[id number] Take 10 mg [facility] 5-17 [id number] [address] [facility] [address] ([place]) 13:09: 3D [...] hours as needed. cyclobenzap 2022-0 Yes 10mg Q.[id number] Take 10 mg [facility] 5-17 [id number] [facility] [address] ([facility]) 13:09: 3D (three) [facility] 10 mg 39 times a l tablet day as needed for muscle spasms. cyclobenzap 2022-0 Yes 10mg Q.[id number] Take 10 mg [facility] 5-17 [id number] [address] [facility] [address] ([facility]) 13:09: 3D [...] (twelve) hours as needed. HYDROcodone 2021- No [id number] 1{tbl} Q6H Take 1 [facility] -acetaminop 5-17 06-[address] [facility] ([place]) 00:00: 04:59 mouth [facility] 10-325 mg 00 :00 every 6 l per tablet (six) hours as needed for severe pain for up to 30 days .chronic pain. prn Max Daily Amount: 4 tablets HYDROcodone 2021- No [id number] 1{tbl} Q6H Take 1 [facility] -acetaminop 5-17 06-[address] [facility] ([place]) 00:00: 04:59 mouth [facility] 10-325 mg 00 :00 every 6 l per tablet (six) hours as needed for severe pain for up to 30 days .chronic pain. prn Max Daily Amount: 4 tablets HYDROcodone 2021-0 2021- No [id number] 1{tbl} Q6H Take 1 [facility] -acetaminop 5-17 06-[address] [facility] ([place]) 00:00: 04:59 mouth [facility] 10-325 mg 00 :00 every 6 l per tablet (six) hours as needed for severe pain for up to 30 days .chronic pain. prn Max Daily Amount: 4 tablets HYDROcodone 2021-0 2021- No [id number] 1{tbl} Q6H Take 1 [facility] -acetaminop 5-17 06-[address] [facility] ([place]) 00:00: 04:59 mouth [facility] 10-325 mg 00 :00 every 6 l per tablet (six) hours as needed for severe pain for up to 30 days .chronic pain. prn Max Daily Amount: 4 tablets HYDROcodone 2021-0 2021- No [id number] 1{tbl} Q6H Take 1 [facility] -acetaminop 5-17 06-[address] [facility] ([place]) 00:00: 04:59 mouth [facility] 10-325 mg 00 :00 every 6 l per tablet (six) hours as needed for severe pain for up to 30 days .chronic pain. prn Max Daily Amount: 4 tablets HYDROcodone 2021-0 2021- No [id number] 1{tbl} Q6H Take 1 [facility] -acetaminop 5-17 06-[address] [facility] ([place]) 00:00: 04:59 mouth [facility] 10-325 mg 00 :00 every 6 l per tablet (six) hours as needed for severe pain for up to 30 days .chronic pain. prn Max Daily Amount: 4 tablets HYDROcodone 2021-0 2021- No [id number] 1{tbl} Q6H Take 1 [facility] -acetaminop 5-17 06-[address] [facility] ([place]) 00:00: 04:59 mouth [facility] 10-325 mg 00 :00 every 6 l per tablet (six) hours as needed for severe pain for up to 30 days .chronic pain. prn Max Daily Amount: 4 tablets diazePAM 2021-2021- No 10mg Q6H Take 10 [...] as needed. diazePAM 2021-0 2021- No 10mg Q6H Take 10 mg [facility] (VALIUM) 10 10-[address] [facility] tablet 16:12: 00:00 every 6 [facility] 01 :00 (six) l hours as needed. diazePAM 2021-0 2021- No 10mg Q6H Take [...] up to 60 days. diazePAM 2020-09- No [id number] 10mg Q12H Take 1 [facility] ([facility]IUM) 10 10-15 tablet (10 s t MG tablet 00:00: 05:59 mg total) [facility] 00 :00 by mouth l every 12 (twelve) hours as needed for anxiety for up to 30 days. diazePAM 2020-09- No [id number] 10mg Q12H Take 1 [facility] ([facility]IUM) 10 10-15 tablet (10 s t MG tablet 00:00: 05:59 mg total) [facility] 00 :00 by mouth l every 12 (twelve) hours as needed for anxiety for up to 30 days. diazePAM 2020-09- No [id number] 10mg Q12H Take 1 [facility] (VALIUM) 10 10-15 tablet (10 s t MG tablet 00:00: 05:59 mg total) [facility] 00 :00 by mouth l every 12 (twelve) hours as needed for anxiety for up to 30 days. diazePAM 2020-09- No [id number] 10mg Q12H Take 1 [facility] ([facility]IUM) [...] as needed for anxiety. diazePAM 2020-09- No [id number] 10mg Q12H Take 1 [facility] ([facility]UM) 10 09-09 12-05 tablet (10 s t MG tablet 00:00: 05:59 mg total) [facility] 00 :00 by mouth l every 12 (twelve) hours as needed for anxiety for up to 30 days. diazePAM 2020-09- No [id number] 10mg Q12H Take 1 [facility] ([facility]IUM) 10 09-09 12-05 tablet (10 s t MG tablet 00:00: 05:59 mg total) [facility] 00 :00 by mouth l every 12 (twelve) hours as needed for anxiety for up to 30 days. diazePAM 2020-09- No [id number] 10mg Q12H Take 1 [facility] ([facility]IUM) 10 09-09 12-05 tablet (10 s t MG tablet 00:00: 05:59 mg total) [facility] 00 :00 by mouth l every 12 (twelve) hours as needed for anxiety for up to 30 days. diazePAM 2020-09- No [id number] 10mg Q12H Take 1 [facility] (VALIUM) 10 09-09 12-05 tablet (10 s t MG tablet 00:00: 05:59 mg total) [facility] 00 :00 by mouth l every 12 (twelve) hours as needed for anxiety for up to 30 days. azithromyci 2020-09- No [id number] 250mg QD Take 1 [facility] [address] (Zithromax 00:00: 00:00 (250 mg [facility] Z-Ok) 250 00 :00 total) by l MG tablet mouth daily. Take 2 tablets the first day, then 1 tablet daily for 4 days. pantoprazol Yes [id number] 40mg Take 1 [facility] e 4-18 tablet by ity of (PROTONIX) 00:00: mouth [place] 40 mg EC 00 daily. Medical tablet Branch dicyclomine 0 Yes [id number] 20mg Take 1 [facility] 20 mg 4-18 tablet by ity of tablet 00:00: mouth [place] 00 every 6 Medical (six) Branch hours as needed for Abdominal pain. ondansetron 0 Yes [id number] 4mg Take 1 [facility] (ZOFRAN) 4 4-18 tablet by ity of mg tablet 00:00: mouth [place] 00 every 8 Medical (eight) Branch hours as needed for Nausea and Vomiting (N/V). pantoprazol 2020-0 Yes [id number] 40mg Take 1 Univers e 4-18 tablet by ity of (PROTONIX) 00:00: mouth [place] 40 mg EC 00 daily. Medical tablet Branch dicyclomine 2020-0 Yes [id number] 20mg Take 1 [facility] 20 mg 4-18 tablet by ity of tablet 00:00: mouth [place] 00 every 6 Medical (six) Branch hours as needed for Abdominal pain. ondansetron 2020-0 Yes [id number] 4mg Take 1 [facility] (ZOFRAN) 4 4-18 tablet by ity of mg tablet 00:00: mouth [place] 00 every 8 Medical (eight) Branch hours as needed for Nausea and Vomiting (N/V). pantoprazol 2020-0 Yes [id number] 40mg Take 1 Univers e 4-18 tablet by ity of (PROTONIX) 00:00: mouth [place] 40 mg EC 00 daily. Medical tablet Branch dicyclomine 0 Yes [id number] 20mg Take 1 [facility] 20 mg 4-18 tablet by ity of tablet 00:00: mouth [place] 00 every 6 Medical (six) Branch hours as needed for Abdominal pain. ondansetron 0 Yes [id number] 4mg Take 1 [facility] (ZOFRAN) 4 4-18 tablet by ity of mg tablet 00:00: mouth [place] 00 every 8 Medical (eight) Branch hours as needed for Nausea and Vomiting (N/V). pantoprazol 2020-0 Yes [id number] 40mg Take 1 [facility] e 4-18 tablet by ity of (PROTONIX) 00:00: mouth [place] 40 mg EC 00 daily. Medical tablet Branch dicyclomine 0 Yes [id number] 20mg Take 1 [facility] 20 mg 4-18 tablet by ity of tablet 00:00: mouth [place] 00 every 6 Medical (six) Branch hours as needed for Abdominal pain. ondansetron 2020-0 Yes [id number] 4mg Take 1 [facility] (ZOFRAN) 4 4-18 tablet by ity of mg tablet 00:00: mouth [place] 00 every 8 Medical (eight) Branch hours as needed for Nausea and Vomiting (N/V). pantoprazol 2020-0 Yes [id number] 40mg Take 1 Univers e 4-18 tablet by ity of (PROTONIX) 00:00: mouth [place] 40 mg EC 00 daily. Medical tablet Branch dicyclomine 2020-0 Yes [id number] 20mg Take 1 [facility] 20 mg 4-18 tablet by ity of tablet 00:00: mouth [place] 00 every 6 Medical (six) Branch hours as needed for Abdominal pain. ondansetron 2020-0 Yes [id number] 4mg Take 1 [facility] (ZOFRAN) 4 4-18 tablet by ity of mg tablet 00:00: mouth [place] 00 every 8 Medical (eight) Branch hours as needed for Nausea and Vomiting (N/V). pantoprazol 2020-0 Yes [id number] 40mg Take 1 Univers e 4-18 tablet by ity of (PROTONIX) 00:00: mouth [place] 40 mg EC 00 daily. Medical tablet Branch dicyclomine 0 Yes [id number] 20mg Take 1 [facility] 20 mg 4-18 tablet by ity of tablet 00:00: mouth [place] 00 every 6 Medical (six) Branch hours as needed for Abdominal pain. ondansetron 0 Yes [id number] 4mg Take 1 [facility] (ZOFRAN) 4 4-18 tablet by ity of mg tablet 00:00: mouth [place] 00 every 8 Medical (eight) Branch hours as needed for Nausea and Vomiting (N/V). pantoprazol 2020-0 Yes [id number] 40mg Take 1 [facility] e 4-18 tablet by ity of (PROTONIX) 00:00: mouth [place] 40 mg EC 00 daily. Medical tablet Branch dicyclomine 2020-0 Yes [id number] 20mg Take 1 [facility] 20 mg 4-18 tablet by ity of tablet 00:00: mouth [place] 00 every 6 Medical (six) Branch hours as needed for Abdominal pain. ondansetron 2020-0 Yes [id number] 4mg Take 1 [facility] (ZOFRAN) 4 4-18 tablet by ity of mg tablet 00:00: mouth [place] 00 every 8 Medical (eight) Branch hours as needed for Nausea and Vomiting (N/V). pantoprazol 2020-0 Yes [id number] 40mg Take 1 Univers e 4-18 tablet by ity of (PROTONIX) 00:00: mouth [place] 40 mg EC 00 daily. Medical tablet Branch dicyclomine 2020-0 Yes [id number] 20mg Take 1 [facility] 20 mg 4-18 tablet by ity of tablet 00:00: mouth [place] 00 every 6 Medical (six) Branch hours as needed for Abdominal pain. ondansetron 2020-0 Yes [id number] 4mg Take 1 [facility] (ZOFRAN) 4 4-18 tablet by ity of mg tablet 00:00: mouth [place] 00 every 8 Medical (eight) Branch hours as needed for Nausea and Vomiting (N/V). pantoprazol 2020-0 Yes [id number] 40mg Take 1 [facility] e 4-18 tablet by ity of (PROTONIX) 00:00: mouth [place] 40 mg EC 00 daily. Medical tablet Branch dicyclomine 2020-0 Yes [id number] 20mg Take 1 [facility] 20 mg 4-18 tablet by ity of tablet 00:00: mouth [place] 00 every 6 Medical (six) Branch hours as needed for Abdominal pain. ondansetron 2020-0 Yes [id number] 4mg Take 1 [facility] (ZOFRAN) 4 4-18 tablet by ity of mg tablet 00:00: mouth [place] 00 every 8 Medical (eight) Branch hours as needed for Nausea and Vomiting (N/V). pantoprazol 2020-0 Yes [id number] 40mg Take 1 Univers e 4-18 tablet by ity of (PROTONIX) 00:00: mouth [place] 40 mg EC 00 daily. Medical tablet Branch dicyclomine 2020-0 Yes [id number] 20mg Take 1 [facility] 20 mg 4-18 tablet by ity of tablet 00:00: mouth [place] 00 every 6 Medical (six) Branch hours as needed for Abdominal pain. ondansetron 2020-0 Yes [id number] 4mg Take 1 [facility] (ZOFRAN) 4 4-18 tablet by ity of mg tablet 00:00: mouth [place] 00 every 8 Medical (eight) Branch hours as needed for Nausea and Vomiting (N/V). pantoprazol 2020-0 Yes [id number] 40mg Take 1 Univers e 4-18 tablet by ity of (PROTONIX) 00:00: mouth [place] 40 mg EC 00 daily. Medical tablet Branch dicyclomine 2020-0 Yes [id number] 20mg Take 1 [facility] 20 mg 4-18 tablet by ity of tablet 00:00: mouth [place] 00 every 6 Medical (six) Branch hours as needed for Abdominal pain. ondansetron 2020-0 Yes [id number] 4mg Take 1 [facility] (ZOFRAN) 4 4-18 tablet by ity of mg tablet 00:00: mouth [place] 00 every 8 Medical (eight) Branch hours as needed for Nausea and Vomiting (N/V). pantoprazol 2020-0 Yes [id number] 40mg Take 1 [facility] e 4-18 tablet by ity of (PROTONIX) 00:00: mouth [place] 40 mg EC 00 daily. Medical tablet Branch dicyclomine 2020-0 Yes [id number] 20mg Take 1 [facility] 20 mg 4-18 tablet by ity of tablet 00:00: mouth [place] 00 every 6 Medical (six) Branch hours as needed for Abdominal pain. ondansetron 2020-0 Yes [id number] 4mg Take 1 [facility] (ZOFRAN) 4 4-18 tablet by ity of mg tablet 00:00: mouth [place] 00 every 8 Medical (eight) Branch hours as needed for Nausea and Vomiting (N/V). pantoprazol 2020-0 Yes [id number] 40mg Take 1 Univers e 4-18 tablet by ity of (PROTONIX) 00:00: mouth [place] 40 mg EC 00 daily. Medical tablet Branch dicyclomine 2020-0 Yes [id number] 20mg Take 1 [facility] 20 mg 4-18 tablet by ity of tablet 00:00: mouth [place] 00 every 6 Medical (six) Branch hours as needed for Abdominal pain. ondansetron 2020-0 Yes [id number] 4mg Take 1 [facility] (ZOFRAN) 4 4-18 tablet by ity of mg tablet 00:00: mouth [place] 00 every 8 Medical (eight) Branch hours as needed for Nausea and Vomiting (N/V). pantoprazol 2020-0 Yes [id number] 40mg Take 1 Univers e 4-18 tablet by ity of (PROTONIX) 00:00: mouth [place] 40 mg EC 00 daily. Medical tablet Branch dicyclomine 2020-0 Yes [id number] 20mg Take 1 [facility] 20 mg 4-18 tablet by ity of tablet 00:00: mouth [place] 00 every 6 Medical (six) Branch hours as needed for Abdominal pain. ondansetron 2020-0 Yes [id number] 4mg Take 1 [facility] (ZOFRAN) 4 4-18 tablet by ity of mg tablet 00:00: mouth [place] 00 every 8 Medical (eight) Branch hours as needed for Nausea and Vomiting (N/V). pantoprazol 2020-0 Yes [id number] 40mg Take 1 [facility] e 4-18 tablet by ity of (PROTONIX) 00:00: mouth [place] 40 mg EC 00 daily. Medical tablet Branch dicyclomine 2020-0 Yes [id number] 20mg Take 1 [facility] 20 mg 4-18 tablet by ity of tablet 00:00: mouth [place] 00 every 6 Medical (six) Branch hours as needed for Abdominal pain. ondansetron 2020-0 Yes [id number] 4mg Take 1 [facility] (ZOFRAN) 4 4-18 tablet by ity of mg tablet 00:00: mouth [place] 00 every 8 Medical (eight) Branch hours as needed for Nausea and Vomiting (N/V). pantoprazol 2020-0 Yes [id number] 40mg Take 1 Univers e 4-18 tablet by ity of (PROTONIX) 00:00: mouth [place] 40 mg EC 00 daily. Medical tablet Branch dicyclomine 2020-0 Yes [id number] 20mg Take 1 [facility] 20 mg 4-18 tablet by ity of tablet 00:00: mouth [place] 00 every 6 Medical (six) Branch hours as needed for Abdominal pain. ondansetron 2020-0 Yes [id number] 4mg Take 1 [facility] (ZOFRAN) 4 4-18 tablet by ity of mg tablet 00:00: mouth [place] 00 every 8 Medical (eight) Branch hours as needed for Nausea and Vomiting (N/V). pantoprazol 2020-0 Yes [id number] 40mg Take 1 Univers e 4-18 tablet by ity of (PROTONIX) 00:00: mouth [place] 40 mg EC 00 daily. Medical tablet Branch dicyclomine 2020-0 Yes [id number] 20mg Take 1 [facility] 20 mg 4-18 tablet by ity of tablet 00:00: mouth [place] 00 every 6 Medical (six) Branch hours as needed for Abdominal pain. ondansetron 2020-0 Yes [id number] 4mg Take 1 [facility] (ZOFRAN) 4 4-18 tablet by ity of mg tablet 00:00: mouth [place] 00 every 8 Medical (eight) Branch hours as needed for Nausea and Vomiting (N/V). pantoprazol 2021-0 Yes [id number] 40mg Take 1 [facility] e 4-18 tablet by ity of (PROTONIX) 00:00: mouth [place] 40 mg EC 00 daily. Medical tablet Branch dicyclomine 2020-0 Yes [id number] 20mg Take 1 [facility] 20 mg 4-18 tablet by ity of tablet 00:00: mouth [place] 00 every 6 Medical (six) Branch hours as needed for Abdominal pain. ondansetron 2020-0 Yes [id number] 4mg Take 1 [facility] (ZOFRAN) 4 4-18 tablet by ity of mg tablet 00:00: mouth [place] 00 every 8 Medical (eight) Branch hours as needed for Nausea and Vomiting (N/V). pantoprazol 2020-0 Yes [id number] 40mg Take 1 [facility] e 4-18 tablet by ity of (PROTONIX) 00:00: mouth [place] 40 mg EC 00 daily. Medical tablet Branch dicyclomine 2020-0 Yes [id number] 20mg Take 1 [facility] 20 mg 4-18 tablet by ity of tablet 00:00: mouth [place] 00 every 6 Medical (six) Branch hours as needed for Abdominal pain. ondansetron 2020-0 Yes [id number] 4mg Take 1 [facility] (ZOFRAN) 4 4-18 tablet by ity of mg tablet 00:00: mouth [place] 00 every 8 Medical (eight) Branch hours as needed for Nausea and Vomiting (N/V). pantoprazol 2020-0 Yes [id number] 40mg Take 1 [facility] e 4-18 tablet by ity of (PROTONIX) 00:00: mouth [place] 40 mg EC 00 daily. Medical tablet Branch dicyclomine 2020-0 Yes [id number] 20mg Take 1 [facility] 20 mg 4-18 tablet by ity of tablet 00:00: mouth [place] 00 every 6 Medical (six) Branch hours as needed for Abdominal pain. ondansetron 2020-0 Yes [id number] 4mg Take 1 [facility] (ZOFRAN) 4 4-18 tablet by ity of mg tablet 00:00: mouth [place] 00 every 8 Medical (eight) Branch hours as needed for Nausea and Vomiting (N/V). pantoprazol 2020-0 Yes [id number] 40mg Take 1 [facility] e 4-18 tablet by ity of (PROTONIX) 00:00: mouth [place] 40 mg EC 00 daily. Medical tablet Branch dicyclomine 2020-0 Yes [id number] 20mg Take 1 [facility] 20 mg 4-18 tablet by ity of tablet 00:00: mouth [place] 00 every 6 Medical (six) Branch hours as needed for Abdominal pain. ondansetron 2020-0 Yes [id number] 4mg Take 1 [facility] (ZOFRAN) 4 4-18 tablet by ity of mg tablet 00:00: mouth [place] 00 every 8 Medical (eight) Branch hours as needed for Nausea and Vomiting (N/V). pantoprazol 2020-0 Yes [id number] 40mg Take 1 [facility] e 4-18 tablet by ity of (PROTONIX) 00:00: mouth [place] 40 mg EC 00 daily. Medical tablet Branch dicyclomine 2020-0 Yes [id number] 20mg Take 1 [facility] 20 mg 4-18 tablet by ity of tablet 00:00: mouth [place] 00 every 6 Medical (six) Branch hours as needed for Abdominal pain. ondansetron 2020-0 Yes [id number] 4mg Take 1 [facility] (ZOFRAN) 4 4-18 tablet by ity of mg tablet 00:00: mouth [place] 00 every 8 Medical (eight) Branch hours as needed for Nausea and Vomiting (N/V). pantoprazol 2020-0 Yes [id number] 40mg Take 1 [facility] e 4-18 tablet by ity of (PROTONIX) 00:00: mouth [place] 40 mg EC 00 daily. Medical tablet Branch dicyclomine 2020-0 Yes [id number] 20mg Take 1 [facility] 20 mg 4-18 tablet by ity of tablet 00:00: mouth [place] 00 every 6 Medical (six) Branch hours as needed for Abdominal pain. ondansetron 2020-0 Yes [id number] 4mg Take 1 [facility] (ZOFRAN) 4 4-18 tablet by ity of mg tablet 00:00: mouth [place] 00 every 8 Medical (eight) Branch hours as needed for Nausea and Vomiting (N/V). pantoprazol 1-0 Yes [id number] 40mg Take 1 [facility] e 4-18 tablet by ity of (PROTONIX) 00:00: mouth [place] 40 mg EC 00 daily. Medical tablet Branch dicyclomine 2020-0 Yes [id number] 20mg Take 1 [facility] 20 mg 4-18 tablet by ity of tablet 00:00: mouth [place] 00 every 6 Medical (six) Branch hours as needed for Abdominal pain. ondansetron 2020-0 Yes [id number] 4mg Take 1 [facility] (ZOFRAN) 4 4-18 tablet by ity of mg tablet 00:00: mouth [place] 00 every 8 Medical (eight) Branch hours as needed for Nausea and Vomiting (N/V). pantoprazol 2020-0 Yes [id number] 40mg Take 1 [facility] e 4-18 tablet by ity of (PROTONIX) 00:00: mouth [place] 40 mg EC 00 daily. Medical tablet Branch dicyclomine 2020-0 Yes [id number] 20mg Take 1 [facility] 20 mg 4-18 tablet by ity of tablet 00:00: mouth [place] 00 every 6 Medical (six) Branch hours as needed for Abdominal pain. pantoprazol 2020-0 Yes [id number] 40mg Take 1 [facility] e 4-18 tablet by ity of (PROTONIX) 00:00: mouth [place] 40 mg EC 00 daily. Medical tablet Branch dicyclomine 2020-0 Yes [id number] 20mg Take 1 [facility] 20 mg 4-18 tablet by ity of tablet 00:00: mouth [place] 00 every 6 Medical (six) Branch hours as needed for Abdominal pain. pantoprazol 2020-0 Yes [id number] 40mg Take 1 [facility] e 4-18 tablet by ity of (PROTONIX) 00:00: mouth [place] 40 mg EC 00 daily. Medical tablet Branch dicyclomine 2020-0 Yes [id number] 20mg Take 1 [facility] 20 mg 4-18 tablet by ity of tablet 00:00: mouth [place] 00 every 6 Medical (six) Branch hours as needed for Abdominal pain. ondansetron 2020-0 Yes [id number] 4mg Take 1 [facility] (ZOFRAN) 4 4-18 tablet by ity of mg tablet 00:00: mouth [place] 00 every 8 Medical (eight) Branch hours as needed for Nausea and Vomiting (N/V). pantoprazol 2020-0 Yes [id number] 40mg Take 1 [facility] e 4-18 tablet by ity of (PROTONIX) 00:00: mouth [place] 40 mg EC 00 daily. Medical tablet Branch dicyclomine 2020-0 Yes [id number] 20mg Take 1 [facility] 20 [facility]-18 tablet by [facility] tablet 00:00: mouth [place] 00 every 6 Medical (six) Branch hours as needed for Abdominal pain. ondansetron 2020-0 Yes [id number] 4mg Take 1 [facility] (ZOFRAN) 4 4-18 tablet by [facility] of mg tablet 00:00: mouth [place] 00 every 8 Medical (eight) Branch hours as needed for Nausea and Vomiting (N/V). pantoprazol 2020-0 Yes [id number] 40mg Take 1 [facility] e 4-18 tablet by [facility] of (PROTONIX) 00:00: mouth [place] 40 mg EC 00 daily. Medical tablet Branch dicyclomine 2020-0 Yes [id number] 20mg Take 1 [facility] 20 mg 4-18 tablet by [facility] of tablet 00:00: mouth [place] 00 every 6 Medical (six) Branch hours as needed for Abdominal pain. ondansetron 2020-0 Yes [id number] 4mg Take 1 [facility] (ZOFRAN) 4 4-18 tablet by [facility] of mg tablet 00:00: mouth [place] 00 every 8 Medical (eight) Branch hours as needed for Nausea and Vomiting (N/V). pantoprazol 2020-0 Yes [id number] 40mg Take 1 [facility] e 4-18 tablet by [facility] of (PROTONIX) 00:00: mouth [place] 40 mg EC 00 daily. Medical tablet Branch dicyclomine 2020-0 Yes [id number] 20mg Take 1 [facility] 20 mg 4-18 tablet by [facility] of tablet 00:00: mouth [place] 00 every 6 Medical (six) Branch hours as needed for Abdominal pain. ondansetron 2020-0 Yes [id number] 4mg Take 1 [facility] (ZOFRAN) 4 4-18 tablet by [facility] of mg tablet 00:00: mouth [place] 00 every 8 Medical (eight) Branch hours as needed for Nausea and Vomiting (N/V). pantoprazol 2020-0 Yes [id number] 40mg Take 1 [facility] e 4-18 tablet by [facility] of (PROTONIX) 00:00: mouth [place] 40 mg EC 00 daily. Medical tablet Branch dicyclomine 2020-0 Yes [id number] 20mg Take 1 [facility] 20 mg 4-18 tablet by [facility] of tablet 00:00: mouth [place] 00 every 6 Medical (six) Branch hours as needed for Abdominal pain. ondansetron 2020-0 Yes [id number] 4mg Take 1 [facility] (ZOFRAN) 4 4-18 tablet by [facility] of mg tablet 00:00: mouth [place] 00 every 8 Medical (eight) Branch hours as needed for Nausea and Vomiting (N/V). pantoprazol 2020-0 Yes [id number] 40mg Take 1 [facility] e 4-18 tablet by [facility] of (PROTONIX) 00:00: mouth [place] 40 mg EC 00 daily. Medical tablet Branch dicyclomine 0 Yes [id number] 20mg Take 1 [facility] 20 mg 4-18 tablet by [facility] of tablet 00:00: mouth [place] 00 every 6 Medical (six) Branch hours as needed for Abdominal pain. ondansetron 0 Yes [id number] 4mg Take 1 [facility] (ZOFRAN) 4 4-18 tablet by [facility] of mg tablet 00:00: mouth [place] 00 every 8 Medical (eight) Branch hours as needed for Nausea and Vomiting (N/V). pantoprazol 0 Yes [id number] 40mg Take 1 [facility] e 4-18 tablet by [facility] of (PROTONIX) 00:00: mouth [place] 40 mg EC 00 daily. Medical tablet Branch dicyclomine 0 Yes [id number] 20mg Take 1 [facility] 20 mg 4-18 tablet by [facility] of tablet 00:00: mouth [place] 00 every 6 Medical (six) Branch hours as needed for Abdominal pain. ondansetron 0 Yes [id number] 4mg Take 1 [facility] (ZOFRAN) 4 4-18 tablet by [facility] of mg tablet 00:00: mouth [place] 00 every 8 Medical (eight) Branch hours as needed for Nausea and Vomiting (N/V). pantoprazol 0 Yes [id number] 40mg Take 1 [facility] e 4-18 tablet by [facility] of (PROTONIX) 00:00: mouth [place] 40 mg EC 00 daily. Medical tablet Branch dicyclomine 2020-0 Yes [id number] 20mg Take 1 [facility] 20 mg 4-18 tablet by [facility] of tablet 00:00: mouth [place] 00 every 6 Medical (six) Branch hours as needed for Abdominal pain. ondansetron 2020-0 Yes [id number] 4mg Take 1 [facility] (ZOFRAN) 4 4-18 tablet by [facility] of mg tablet 00:00: mouth [place] 00 every 8 Medical (eight) Branch hours as needed for Nausea and Vomiting (N/V). pantoprazol 2020-0 Yes [id number] 40mg Take 1 [facility] e 4-18 tablet by [facility] of (PROTONIX) 00:00: mouth [place] 40 mg EC 00 daily. Medical tablet Branch dicyclomine 2020-0 Yes [id number] 20mg Take 1 [facility] 20 mg 4-18 tablet by [facility] of tablet 00:00: mouth [place] 00 every 6 Medical (six) Branch hours as needed for Abdominal pain. ondansetron 2020-0 Yes [id number] 4mg Take 1 [facility] (ZOFRAN) 4 4-18 tablet by [facility] of mg tablet 00:00: mouth [place] 00 every 8 Medical (eight) Branch hours as needed for Nausea and Vomiting (N/V). pantoprazol 2020-0 Yes [id number] 40mg Take 1 [facility] e 4-18 tablet by [facility] of (PROTONIX) 00:00: mouth [place] 40 mg EC 00 daily. Medical tablet Branch dicyclomine 2020-0 Yes [id number] 20mg Take 1 [facility] 20 mg 4-18 tablet by [facility] of tablet 00:00: mouth [place] 00 every 6 Medical (six) Branch hours as needed for Abdominal pain. ondansetron 2020-0 Yes [id number] 4mg Take 1 [facility] (ZOFRAN) 4 4-18 tablet by [facility] of mg tablet 00:00: mouth [place] 00 every 8 Medical (eight) Branch hours as needed for Nausea and Vomiting (N/V). pantoprazol 2020-0 Yes [id number] 40mg Take 1 [facility] e 4-18 tablet by [facility] of (PROTONIX) 00:00: mouth [place] 40 mg EC 00 daily. Medical tablet Branch dicyclomine 2020-0 Yes [id number] 20mg Take 1 [facility] 20 mg 4-18 tablet by [facility] of tablet 00:00: mouth [place] 00 every 6 Medical (six) Branch hours as needed for Abdominal pain. ondansetron 2020-0 Yes [id number] 4mg Take 1 [facility] (ZOFRAN) 4 4-18 tablet by [facility] of mg tablet 00:00: mouth [place] 00 every 8 Medical (eight) Branch hours as needed for Nausea and Vomiting (N/V). pantoprazol 2020-0 Yes [id number] 40mg Take 1 [facility] e 4-18 tablet by [facility] of (PROTONIX) 00:00: mouth [place] 40 mg EC 00 daily. Medical tablet Branch dicyclomine 2020-0 Yes [id number] 20mg Take 1 [facility] 20 mg 4-18 tablet by [facility] of tablet 00:00: mouth [place] 00 every 6 Medical (six) Branch hours as needed for Abdominal pain. ondansetron 2020-0 Yes [id number] 4mg Take 1 [facility] (ZOFRAN) 4 4-18 tablet by [facility] of mg tablet 00:00: mouth [place] 00 every 8 Medical (eight) Branch hours as needed for Nausea and Vomiting (N/V). pantoprazol 2020-0 Yes [id number] 40mg Take 1 [facility] e 4-18 tablet by [facility] of (PROTONIX) 00:00: mouth [place] 40 mg EC 00 daily. Medical tablet Branch dicyclomine 2020-0 Yes [id number] 20mg Take 1 [facility] 20 mg 4-18 tablet by [facility] of tablet 00:00: mouth [place] 00 every 6 Medical (six) Branch hours as needed for Abdominal pain. ondansetron 2020-0 Yes [id number] 4mg Take 1 [facility] (ZOFRAN) 4 4-18 tablet by [facility] of mg tablet 00:00: mouth [place] 00 every 8 Medical (eight) Branch hours as needed for Nausea and Vomiting (N/V). pantoprazol 2020-0 Yes [id number] 40mg Take 1 [facility] e 4-18 tablet by [facility] of (PROTONIX) 00:00: mouth [place] 40 mg EC 00 daily. Medical tablet Branch dicyclomine 2020-0 Yes [id number] 20mg Take 1 [facility] 20 mg 4-18 tablet by [facility] of tablet 00:00: mouth [place] 00 every 6 Medical (six) Branch hours as needed for Abdominal pain. ondansetron 2020-0 Yes [id number] 4mg Take 1 [facility] (ZOFRAN) 4 4-18 tablet by [facility] of mg tablet 00:00: mouth [place] 00 every 8 Medical (eight) Branch hours as needed for Nausea and Vomiting (N/V). pantoprazol 2020-0 Yes [id number] 40mg Take 1 [facility] e 4-18 tablet by [facility] of (PROTONIX) 00:00: mouth [place] 40 mg EC 00 daily. Medical tablet Branch dicyclomine 2020-0 Yes [id number] 20mg Take 1 [facility] 20 mg 4-18 tablet by [facility] of tablet 00:00: mouth [place] 00 every 6 Medical (six) Branch hours as needed for Abdominal pain. ondansetron 2020-0 Yes [id number] 4mg Take 1 [facility] (ZOFRAN) 4 4-18 tablet by [facility] of mg tablet 00:00: mouth [place] 00 every 8 Medical (eight) Branch hours as needed for Nausea and Vomiting (N/V). pantoprazol 2020-0 Yes [id number] 40mg Take 1 [facility] e 4-18 tablet by [facility] of (PROTONIX) 00:00: mouth [place] 40 mg EC 00 daily. Medical tablet Branch dicyclomine 2020-0 Yes [id number] 20mg Take 1 [facility] 20 mg 4-18 tablet by [facility] of tablet 00:00: mouth [place] 00 every 6 Medical (six) Branch hours as needed for Abdominal pain. ondansetron 2020-0 Yes [id number] 4mg Take 1 [facility] (ZOFRAN) 4 4-18 tablet by [facility] of mg tablet 00:00: mouth [place] 00 every 8 Medical (eight) Branch hours as needed for Nausea and Vomiting (N/V). pantoprazol 2020-0 Yes [id number] 40mg Take 1 [facility] e 4-18 tablet by [facility] of (PROTONIX) 00:00: mouth [place] 40 mg EC 00 daily. Medical tablet Branch dicyclomine 2020-0 Yes [id number] 20mg Take 1 [facility] 20 mg 4-18 tablet by [facility] of tablet 00:00: mouth [place] 00 every 6 Medical (six) Branch hours as needed for Abdominal pain. ondansetron 2020-0 Yes [id number] 4mg Take 1 [facility] (ZOFRAN) 4 4-18 tablet by [facility] of mg tablet 00:00: mouth [place] 00 every 8 Medical (eight) Branch hours as needed for Nausea and Vomiting (N/V). pantoprazol 2020-0 Yes [id number] 40mg Take 1 [facility] e 4-18 tablet by [facility] of (PROTONIX) 00:00: mouth [place] 40 mg EC 00 daily. Medical tablet Branch dicyclomine 2020-0 Yes [id number] 20mg Take 1 [facility] 20 mg 4-18 tablet by [facility] of tablet 00:00: mouth [place] 00 every 6 Medical (six) Branch hours as needed for Abdominal pain. ondansetron 2020-0 Yes [id number] 4mg Take 1 [facility] (ZOFRAN) 4 4-18 tablet by [facility] of mg tablet 00:00: mouth [place] 00 every 8 Medical (eight) Branch hours as needed for Nausea and Vomiting (N/V). pantoprazol 2020-0 Yes [id number] 40mg Take 1 [facility] e 4-18 tablet by [facility] of (PROTONIX) 00:00: mouth [place] 40 mg EC 00 daily. Medical tablet Branch dicyclomine 2020-0 Yes [id number] 20mg Take 1 [facility] 20 mg 4-18 tablet by [facility] of tablet 00:00: mouth [place] 00 every 6 Medical (six) Branch hours as needed for Abdominal pain. ondansetron 2020-0 Yes [id number] 4mg Take 1 [facility] (ZOFRAN) 4 4-18 tablet by [facility] of mg tablet 00:00: mouth [place] 00 every 8 Medical (eight) Branch hours as needed for Nausea and Vomiting (N/V). pantoprazol 2020-0 Yes [id number] 40mg Take 1 [facility] e 4-18 tablet by [facility] of (PROTONIX) 00:00: mouth [place] 40 mg EC 00 daily. Medical tablet Branch dicyclomine 2020-0 Yes [id number] 20mg Take 1 [facility] 20 mg 4-18 tablet by [facility] of tablet 00:00: mouth [place] 00 every 6 Medical (six) Branch hours as needed for Abdominal pain. ondansetron 2020-0 Yes [id number] 4mg Take 1 [facility] (ZOFRAN) 4 4-18 tablet by [facility] of mg tablet 00:00: mouth [place] 00 every 8 Medical (eight) Branch hours as needed for Nausea and Vomiting (N/V). pantoprazol 2020-0 Yes [id number] 40mg Take 1 [facility] e 4-18 tablet by [facility] of (PROTONIX) 00:00: mouth [place] 40 mg EC 00 daily. Medical tablet Branch dicyclomine 2020-0 Yes [id number] 20mg Take 1 [facility] 20 mg 4-18 tablet by [facility] of tablet 00:00: mouth [place] 00 every 6 Medical (six) Branch hours as needed for Abdominal pain. ondansetron 2020-0 Yes [id number] 4mg Take 1 [facility] (ZOFRAN) 4 4-18 tablet by it[facility] of mg tablet 00:00: mouth [place] 00 every 8 Medical (eight) Branch hours as needed for Nausea and Vomiting (N/V). pantoprazol 0 Yes [id number] 40mg Take 1 [facility] e 4-18 tablet by [facility] of (PROTONIX) 00:00: mouth [place] 40 mg EC 00 daily. Medical tablet Branch dicyclomine 0 Yes [id number] 20mg Take 1 [facility] 20 mg 4-18 tablet by [facility] of tablet 00:00: mouth [place] 00 every 6 Medical (six) Branch hours as needed for Abdominal pain. ondansetron Yes [id number] 4mg Take 1 [facility] (ZOFRAN) 4 4-18 tablet by [facility] of mg tablet 00:00: mouth [place] 00 every 8 Medical (eight) Branch hours as needed for Nausea and Vomiting (N/V). pantoprazol Yes [id number] 40mg Take 1 [facility] e 4-18 tablet by [facility] of (PROTONIX) 00:00: mouth [place] 40 mg EC 00 daily. Medical tablet Branch dicyclomine Yes [id number] 20mg Take 1 [facility] 20 mg 4-18 tablet by [facility] of tablet 00:00: mouth [place] 00 every 6 Medical (six) Branch hours as needed for Abdominal pain. ondansetron Yes [id number] 4mg Take 1 [facility] (ZOFRAN) 4 4-18 tablet by [facility] of mg tablet 00:00: mouth [place] 00 every 8 Medical (eight) Branch hours as needed for Nausea and Vomiting (N/V). ondansetron 3- No [id number] 4mg Take 1 [facility] (ZOFRAN) 4 4-18 [...] 00 DAILY UNTIL FINISHED. nystatin 2020-0 Yes [id number] Apply to [facility] 100,000 2-05 affected [facility] of unit/gram 00:00: area(s) 3 [facility] as ointment 00 (three) Medical times Branch daily. nystatin 2020-0 Yes [id number] Apply to [facility] 100,000 2-05 affected [facility] of unit/gram 00:00: area(s) 3 [facility] ointment 00 (three) Medical times Branch daily. nystatin 2020-0 Yes [id number] Apply to [facility] 100,000 2-05 affected [facility] of unit/gram 00:00: area(s) 3 [facility] ointment 00 (three) Medical times Branch daily. nystatin 2020-0 Yes [id number] Apply to [facility] 100,000 2-05 affected [facility]y of unit/gram 00:00: area(s) 3 [facility] as ointment 00 (three) Medical times Branch daily. nystatin 2020-0 Yes [id number] Apply to [facility] 100,000 2-05 affected [facility] of unit/gram 00:00: area(s) 3 [facility] as ointment 00 (three) Medical times Branch daily. nystatin 2020-0 Yes [id number] Apply to [facility] 100,000 2-05 affected [facility] of unit/gram 00:00: area(s) 3 [facility] ointment 00 (three) Medical times Branch daily. nystatin 2020-0 Yes [id number] Apply to [facility] 100,000 2-05 affected [facility]y of unit/gram 00:00: area(s) 3 [facility] ointment 00 (three) Medical times Branch daily. nystatin 2020-0 Yes [id number] Apply to [facility] 100,000 2-05 affected [facility]y of unit/gram 00:00: area(s) 3 [facility] ointment 00 (three) Medical times Branch daily. nystatin 2020-0 Yes [id number] Apply to [facility] 100,000 2-05 affected [facility]y of unit/gram 00:00: area(s) 3 [facility] ointment 00 (three) Medical times Branch daily. nystatin 2020-0 Yes [id number] Apply to [facility] 100,000 2-05 affected [facility]y of unit/gram 00:00: area(s) 3 [facility] ointment 00 (three) Medical times Branch daily. nystatin 2020-0 Yes [id number] Apply to [facility] 100,000 2-05 affected [facility]y of unit/gram 00:00: area(s) 3 [facility] ointment 00 (three) Medical times Branch daily. nystatin 2020-0 Yes [id number] Apply to [facility] 100,000 2-05 affected [facility]y of unit/gram 00:00: area(s) 3 [facility] as ointment 00 (three) Medical times Branch daily. nystatin 2020-0 Yes [id number] Apply to [facility] 100,000 2-05 affected [facility]y of unit/gram 00:00: area(s) 3 [facility] as ointment 00 (three) Medical times Branch daily. nystatin 2020-0 Yes [id number] Apply to [facility] 100,000 2-05 affected [facility]y of unit/gram 00:00: area(s) 3 [facility] ointment 00 (three) Medical times Branch daily. nystatin 2020-0 Yes [id number] Apply to [facility] 100,000 2-05 affected [facility]y of unit/gram 00:00: area(s) 3 [facility] ointment 00 (three) Medical times Branch daily. nystatin 2020-0 Yes [id number] Apply to [facility] 100,000 2-05 affected [facility]y of unit/gram 00:00: area(s) 3 [facility] as ointment 00 (three) Medical times Branch daily. nystatin 2020-0 Yes [id number] Apply to [facility] 100,000 2-05 affected [facility]y of unit/gram 00:00: area(s) 3 [facility] as ointment 00 (three) Medical times Branch daily. nystatin 2020-0 Yes [id number] Apply to [facility] 100,000 2-05 affected [facility]y of unit/gram 00:00: area(s) 3 [facility] as ointment 00 (three) Medical times Branch daily. nystatin 2020-0 Yes [id number] Apply to [facility] 100,000 2-05 affected ity of unit/gram 00:00: area(s) 3 [facility] as ointment 00 (three) Medical times Branch daily. nystatin 2020-0 Yes [id number] Apply to [facility] 100,000 2-05 affected ity of unit/gram 00:00: area(s) 3 [facility] as ointment 00 (three) Medical times Branch daily. nystatin 2020-0 Yes [id number] Apply to [facility] 100,000 2-05 affected ity of unit/gram 00:00: area(s) 3 [facility] as ointment 00 (three) Medical times Branch daily. nystatin 2020-0 Yes [id number] Apply to [facility] 100,000 2-05 affected ity of unit/gram 00:00: area(s) 3 [facility] as ointment 00 (three) Medical times Branch daily. nystatin 2020-0 Yes [id number] Apply to [facility] 100,000 2-05 affected ity of unit/gram 00:00: area(s) 3 [facility] as ointment 00 (three) Medical times Branch daily. nystatin 2020-0 Yes [id number] Apply to [facility] 100,000 2-05 affected ity of unit/gram 00:00: area(s) 3 [facility] as ointment 00 (three) Medical times Branch daily. nystatin 2020-0 Yes [id number] Apply to [facility] 100,000 2-05 affected ity of unit/gram 00:00: area(s) 3 [facility] as ointment 00 (three) Medical times Branch daily. nystatin 2020-0 Yes [id number] Apply to [facility] 100,000 2-05 affected ity of unit/gram 00:00: area(s) 3 [facility] as ointment 00 (three) Medical times Branch daily. nystatin 2020-0 Yes [id number] Apply to [facility] 100,000 2-05 affected [facility]y of unit/gram 00:00: area(s) 3 [facility] ointment 00 (three) Medical times Branch daily. nystatin 2020-0 Yes [id number] Apply to [facility] 100,000 2-05 affected [facility]y of unit/gram 00:00: area(s) 3 [facility] as ointment 00 (three) Medical times Branch daily. nystatin 2020-0 Yes [id number] Apply to [facility] 100,000 2-05 affected ity of unit/gram 00:00: area(s) 3 [facility] as ointment 00 (three) Medical times Branch daily. nystatin 2020-0 Yes [id number] Apply to [facility] 100,000 2-05 affected [facility]y of unit/gram 00:00: area(s) 3 [facility] as ointment 00 (three) Medical times Branch daily. nystatin 2020-0 Yes [id number] Apply to [facility] 100,000 2-05 affected ity of unit/gram 00:00: area(s) 3 [facility] as ointment 00 (three) Medical times Branch daily. nystatin 2020-0 Yes [id number] Apply to [facility] 100,000 2-05 affected [facility]y of unit/gram 00:00: area(s) 3 [facility] ointment 00 (three) Medical times Branch daily. nystatin 2020-0 Yes [id number] Apply to [facility] 100,000 2-05 affected [facility]y of unit/gram 00:00: area(s) 3 [facility] as ointment 00 (three) Medical times Branch daily. nystatin 2020-0 Yes [id number] Apply to [facility] 100,000 2-05 affected ity of unit/gram 00:00: area(s) 3 [facility] as ointment 00 (three) Medical times Branch daily. nystatin 2020-0 Yes [id number] Apply to [facility] 100,000 2-05 affected [facility]y of unit/gram 00:00: area(s) 3 [facility] as ointment 00 (three) Medical times Branch daily. nystatin 2020-0 Yes [id number] Apply to [facility] 100,000 2-05 affected ity of unit/gram 00:00: area(s) 3 [facility] as ointment 00 (three) Medical times Branch daily. nystatin 2020-0 Yes [id number] Apply to [facility] 100,000 2-05 affected [facility]y of unit/gram 00:00: area(s) 3 [facility] as ointment 00 (three) Medical times Branch daily. nystatin 2020-0 Yes [id number] Apply to [facility] 100,000 2-05 affected ity of unit/gram 00:00: area(s) 3 [facility] as ointment 00 (three) Medical times Branch daily. nystatin 2020-0 Yes [id number] Apply to [facility] 100,000 2-05 affected ity of unit/gram 00:00: area(s) 3 [facility] as ointment 00 (three) Medical times Branch daily. nystatin 2020-0 Yes [id number] Apply to [facility] 100,000 2-05 affected ity of unit/gram 00:00: area(s) 3 [facility] as ointment 00 (three) Medical times Branch daily. nystatin 2020-0 Yes [id number] Apply to [facility] 100,000 2-05 affected ity of unit/gram 00:00: area(s) 3 [facility] ointment 00 (three) Medical times Branch daily. nystatin 2020-0 Yes [id number] Apply to [facility] 100,000 2-05 affected [facility]y of unit/gram 00:00: area(s) 3 [facility] ointment 00 (three) Medical times Branch daily. nystatin 2020-0 Yes [id number] Apply to [facility] 100,000 2-05 affected [facility]y of unit/gram 00:00: area(s) 3 [facility] ointment 00 (three) Medical times Branch daily. nystatin 2020-0 Yes [id number] Apply to [facility] 100,000 2-05 affected ity of unit/gram 00:00: area(s) 3 [facility] ointment 00 (three) Medical times Branch daily. nystatin 2020-0 Yes [id number] Apply to [facility] 100,000 2-05 affected ity of unit/gram 00:00: area(s) 3 [facility] as ointment 00 (three) Medical times Branch daily. nystatin 2020-0 Yes [id number] Apply to [facility] 100,000 2-05 affected ity of unit/gram 00:00: area(s) 3 [facility] ointment 00 (three) Medical times Branch daily. nystatin 2020-0 Yes [id number] Apply to [facility] 100,000 2-05 affected ity of unit/gram 00:00: area(s) 3 [facility] ointment 00 (three) Medical times Branch daily. nystatin 2020-0 Yes [id number] Apply to [facility] 100,000 2-05 affected ity of unit/gram 00:00: area(s) 3 [facility] as ointment 00 (three) Medical times Branch daily. nystatin 2020-0 Yes [id number] Apply to [facility] 100,000 2-05 affected ity [...] DAILY ans Tablet Tablet 00 DIRECTED. medroxyPROG 2019- Yes [id number] 150mg [facility] ESTERone 5-14 ity of (DEPO-PROVE 18:30: [place] [facility]) 00 Medical injection Branch 150 mg medroxyPROG 2019- Yes [id number] 150mg [facility] ESTERone 5-14 ity of (DEPO-PROVE 18:30: [place] [facility]) 00 Medical injection Branch 150 mg medroxyPROG 2019- Yes [id number] 150mg [facility] ESTERone 5-14 ity of (DEPO-PROVE 18:30: [place] [facility]) 00 Medical injection Branch 150 mg medroxyPROG 2018- Yes [id number] 150mg [facility] ESTERone 5-14 ity of (DEPO-PROVE 18:30: [place] [facility]) 00 Medical injection Branch 150 mg medroxyPROG 2019-0 Yes [id number] 150mg [facility] ESTERone 5-14 ity of (DEPO-PROVE 18:30: [place] [facility]) 00 Medical injection Branch 150 mg medroxyPROG 2019-0 Yes [id number] 150mg [facility] ESTERone 5-14 ity of (DEPO-PROVE 18:30: [place] [facility]) 00 Medical injection Branch 150 mg medroxyPROG 2019-0 Yes [id number] 150mg [facility] ESTERone 5-14 ity of (DEPO-PROVE 18:30: [place] [facility]) 00 Medical injection Branch 150 mg medroxyPROG 2019-0 Yes [id number] 150mg [facility] ESTERone 5-14 ity of (DEPO-PROVE 18:30: [place] [facility]) 00 Medical injection Branch 150 mg medroxyPROG 2019-0 Yes [id number] 150mg [facility] ESTERone 5-14 ity of (DEPO-PROVE 18:30: [place] [facility]) 00 Medical injection Branch 150 mg medroxyPROG 2019-0 Yes [id number] 150mg [facility] ESTERone 5-14 ity of (DEPO-PROVE 18:30: [place] [facility]) 00 Medical injection Branch 150 mg medroxyPROG 2019-0 Yes [id number] 150mg [facility] ESTERone 5-14 ity of (DEPO-PROVE 18:30: [place] [facility]) 00 Medical injection Branch 150 mg medroxyPROG 2019-0 Yes [id number] 150mg [facility] ESTERone 5-14 ity of (DEPO-PROVE 18:30: [place] [facility]) 00 Medical injection Branch 150 mg medroxyPROG 2019-0 Yes [id number] 150mg [facility] ESTERone 5-14 ity of (DEPO-PROVE 18:30: [place] [facility]) 00 Medical injection Branch 150 mg medroxyPROG 2019-0 Yes [id number] 150mg [facility] ESTERone 5-14 ity of (DEPO-PROVE 18:30: [place] [facility]) 00 Medical injection Branch 150 mg medroxyPROG 2019-0 Yes [id number] 150mg [facility] ESTERone 5-14 ity of (DEPO-PROVE 18:30: [place] [facility]) 00 Medical injection Branch 150 mg medroxyPROG 2019-0 Yes [id number] 150mg [facility] ESTERone 5-14 ity of (DEPO-PROVE 18:30: [place] [facility]) 00 Medical injection Branch 150 mg medroxyPROG 2019-0 Yes [id number] 150mg [facility] ESTERone 5-14 ity of (DEPO-PROVE 18:30: [place] [facility]) 00 Medical injection Branch 150 mg medroxyPROG 2019-0 Yes [id number] 150mg [facility] ESTERone 5-14 ity of (DEPO-PROVE 18:30: [place] [facility]) 00 Medical injection Branch 150 mg medroxyPROG 2019-0 Yes [id number] 150mg [facility] ESTERone 5-14 ity of (DEPO-PROVE 18:30: [place] [facility]) 00 Medical injection Branch 150 mg medroxyPROG 2019-0 Yes [id number] 150mg [facility] ESTERone 5-14 ity of (DEPO-PROVE 18:30: [place] [facility]) 00 Medical injection Branch 150 mg medroxyPROG 2019-0 Yes [id number] 150mg [facility] ESTERone 5-14 ity of (DEPO-PROVE 18:30: [place] [facility]) 00 Medical injection Branch 150 mg medroxyPROG 2019-0 Yes [id number] 150mg [facility] ESTERone 5-14 ity of (DEPO-PROVE 18:30: [place] [facility]) 00 Medical injection Branch 150 mg medroxyPROG 2019-0 Yes [id number] 150mg [facility] ESTERone 5-14 ity of (DEPO-PROVE 18:30: [place] [facility]) 00 Medical injection Branch 150 mg medroxyPROG 2019-0 Yes [id number] 150mg [facility] ESTERone 5-14 ity of (DEPO-PROVE 18:30: [place] [facility]) 00 Medical injection Branch 150 mg medroxyPROG 2019-0 Yes [id number] 150mg [facility] ESTERone 5-14 ity of (DEPO-PROVE 18:30: [place] [facility]) 00 Medical injection Branch 150 mg medroxyPROG 2019-0 Yes [id number] 150mg [facility] ESTERone 5-14 ity of (DEPO-PROVE 18:30: [place] [facility]) 00 Medical injection Branch 150 mg medroxyPROG 2019-0 Yes [id number] 150mg [facility] ESTERone 5-14 ity of (DEPO-PROVE 18:30: [place] [facility]) 00 Medical injection Branch 150 mg medroxyPROG 2019-0 Yes [id number] 150mg [facility] ESTERone 5-14 ity of (DEPO-PROVE 18:30: [place] [facility]) 00 Medical injection Branch 150 mg medroxyPROG 2019-0 Yes [id number] 150mg [facility] ESTERone 5-14 ity of (DEPO-PROVE 18:30: [place] [facility]) 00 Medical injection Branch 150 mg medroxyPROG 2019-0 Yes [id number] 150mg [facility] ESTERone 5-14 ity of (DEPO-PROVE 18:30: [place] [facility]) 00 Medical injection Branch 150 mg medroxyPROG 2019-0 Yes [id number] 150mg [facility] ESTERone 5-14 ity of (DEPO-PROVE 18:30: [place] [facility]) 00 Medical injection Branch 150 mg medroxyPROG 2019-0 Yes [id number] 150mg [facility] ESTERone 5-14 ity of (DEPO-PROVE 18:30: [place] [facility]) 00 Medical injection Branch 150 mg medroxyPROG 2019-0 Yes [id number] 150mg [facility] ESTERone 5-14 ity of (DEPO-PROVE 18:30: [place] [facility]) 00 Medical injection Branch 150 mg medroxyPROG 2019-0 Yes [id number] 150mg [facility] ESTERone 5-14 ity of (DEPO-PROVE 18:30: [place] [facility]) 00 Medical injection Branch 150 mg medroxyPROG 2019-0 Yes [id number] 150mg [facility] ESTERone 5-14 ity of (DEPO-PROVE 18:30: [place] [facility]) 00 Medical injection Branch 150 mg medroxyPROG 2019-0 Yes [id number] 150mg [facility] ESTERone 5-14 ity of (DEPO-PROVE 18:30: [place] [facility]) 00 Medical injection Branch 150 mg medroxyPROG 2019-0 Yes [id number] 150mg [facility] ESTERone 5-14 ity of (DEPO-PROVE 18:30: [place] [facility]) 00 Medical injection Branch 150 mg medroxyPROG 2019-0 Yes [id number] 150mg [facility] ESTERone 5-14 ity of (DEPO-PROVE 18:30: [place] [facility]) 00 Medical injection Branch 150 mg medroxyPROG 2019-0 Yes [id number] 150mg [facility] ESTERone 5-14 ity of (DEPO-PROVE 18:30: [place] [facility]) 00 Medical injection Branch 150 mg medroxyPROG 2019-0 Yes [id number] 150mg [facility] ESTERone 5-14 ity of (DEPO-PROVE 18:30: [place] [facility]) 00 Medical injection Branch 150 mg medroxyPROG 2019-0 Yes [id number] 150mg [facility] ESTERone 5-14 ity of (DEPO-PROVE 18:30: [place] [facility]) 00 Medical injection Branch 150 mg medroxyPROG 2019-0 Yes [id number] 150mg [facility] ESTERone 5-14 ity of (DEPO-PROVE 18:30: [place] [facility]) 00 Medical injection Branch 150 mg medroxyPROG 2019-0 Yes [id number] 150mg [facility] ESTERone 5-14 ity of (DEPO-PROVE 18:30: [place] [facility]) 00 Medical injection Branch 150 mg medroxyPROG 2019-0 Yes [id number] 150mg [facility] ESTERone 5-14 ity of (DEPO-PROVE 18:30: [place] [facility]) 00 Medical injection Branch 150 mg medroxyPROG 2019-0 Yes [id number] 150mg [facility] ESTERone 5-14 ity of (DEPO-PROVE 18:30: [place] [facility]) 00 Medical injection Branch 150 mg medroxyPROG 2019-0 Yes [id number] 150mg [facility] ESTERone 5-14 ity of (DEPO-PROVE 18:30: [place] [facility]) 00 Medical injection Branch 150 mg medroxyPROG 2019-0 Yes [id number] 150mg [facility] ESTERone 5-14 ity of (DEPO-PROVE 18:30: [place] [facility]) 00 Medical injection Branch 150 mg medroxyPROG 2019-0 Yes [id number] 150mg [facility] ESTERone 5-14 ity of (DEPO-PROVE 18:30: [place] [facility]) 00 Medical injection Branch 150 mg medroxyPROG 2019-0 Yes [id number] 150mg [facility] ESTERone 5-14 ity of (DEPO-PROVE 18:30: [place] [facility]) 00 Medical injection Branch 150 mg Keppra 500 Keppra 500 Yes M.D. U T MG Oral MG Oral 1-02 Physici Tablet Tablet 00:00: ans 00 Immunizations Ordered Immunization Filled Immunization Date Status Commen ts Source Name Name SARS-COV-2 COVID-19 2021-08-06 Completed Unive rsity of PFIZER VACCINE 00:00:00 [facility] SARS-COV-2 COVID-19 2021-08-06 Completed Unive rsity of PFIZER VACCINE 00:00:00 [facility] SARS-COV-2 COVID-19 2021-08-06 Completed Unive rsity of PFIZER VACCINE 00:00:00 [facility] Branch SARS-COV-2 COVID-19 2021-08-06 Completed Unive rsity of PFIZER VACCINE 00:00:00 [facility] Branch SARS-COV-2 COVID-19 2021-08-06 Completed Unive rsity of PFIZER VACCINE 00:00:00 [facility] Branch SARS-COV-2 COVID-19 2021-08-06 Completed Unive rsity of PFIZER VACCINE 00:00:00 [facility] Branch SARS-COV-2 COVID-19 2021-08-06 Completed Unive rsity of PFIZER VACCINE 00:00:00 [facility] Branch SARS-COV-2 COVID-19 2021-08-06 Completed Unive rsity of PFIZER VACCINE 00:00:00 [facility] Branch SARS-COV-2 COVID-19 2021-08-06 Completed Unive rsity of PFIZER VACCINE 00:00:00 [facility] Branch SARS-COV-2 COVID-19 2021-08-06 Completed Unive rsity of PFIZER VACCINE 00:00:00 [facility] Branch SARS-COV-2 COVID-19 2021-08-06 Completed Unive rsity of PFIZER VACCINE 00:00:00 [facility] Branch SARS-COV-2 COVID-19 2021-08-06 Completed Unive rsity of PFIZER VACCINE 00:00:00 [facility] Branch SARS-COV-2 COVID-19 2021-08-06 Completed Unive rsity of PFIZER VACCINE 00:00:00 [facility] Branch SARS-COV-2 COVID-19 2021-08-06 Completed Unive rsity of PFIZER VACCINE 00:00:00 [facility] Branch SARS-COV-2 COVID-19 2021-08-06 Completed Unive rsity of PFIZER VACCINE 00:00:00 [facility] Branch SARS-COV-2 COVID-19 2021-08-06 Completed Unive rsity of PFIZER VACCINE 00:00:00 [facility] Branch SARS-COV-2 COVID-19 2021-08-06 Completed Unive rsity of PFIZER VACCINE 00:00:00 [facility] SARS-COV-2 COVID-19 2021-08-06 Completed Unive rsity of PFIZER VACCINE 00:00:00 [facility] SARS-COV-2 COVID-19 2021-08-06 Completed Unive rsity of PFIZER VACCINE 00:00:00 [facility] SARS-COV-2 COVID-19 2021-08-06 Completed Unive rsity of PFIZER VACCINE 00:00:00 [facility] SARS-COV-2 COVID-19 2021-08-06 Completed Unive rsity of PFIZER VACCINE 00:00:00 [facility] SARS-COV-2 COVID-19 2021-08-06 Completed Unive rsity of PFIZER VACCINE 00:00:00 [facility] SARS-COV-2 COVID-19 2021-08-06 Completed Unive rsity of PFIZER VACCINE 00:00:00 [facility] SARS-COV-2 COVID-19 2021-08-06 Completed Unive rsity of PFIZER VACCINE 00:00:00 [facility] SARS-COV-2 COVID-19 2021-08-06 Completed Unive rsity of PFIZER VACCINE 00:00:00 [facility] SARS-COV-2 COVID-19 2021-08-06 Completed Unive rsity of PFIZER VACCINE 00:00:00 [facility] PFIZER COVID-19 MRNA 2021-08-06 Completed Meth odist [...] MRNA 2021-08-06 Completed Meth odist VACCINATION 00:00:00 [facility] SARS-COV-2 COVID-19 2021-07-09 Completed Unive rsity of PFIZER VACCINE 00:00:00 [facility] Influenza Virus 2021-07-09 Completed Universit y of Vaccine Quad .5 mL IM 00:00:00 [facility] 6+ MO [place] SARS-COV-2 COVID-19 2021-07-09 Completed Unive rsity of PFIZER VACCINE 00:00:00 [facility] Influenza Virus 2021-07-09 Completed Universit y of Vaccine Quad .5 mL IM 00:00:00 [facility] 6[facility] Branch SARS-COV-2 COVID-19 2021-07-09 Completed Unive rsity of PFIZER VACCINE 00:00:00 [facility] Influenza Virus 2021-07-09 Completed Universit y of Vaccine Quad .5 mL IM 00:00:00 [facility] 6[facility] MO Branch SARS-COV-2 COVID-19 2021-07-09 Completed Unive rsity of PFIZER VACCINE 00:00:00 [facility] Influenza Virus 2021-07-09 Completed Universit y of Vaccine Quad .5 mL IM 00:00:00 [facility] 6[facility] MO Branch SARS-COV-2 COVID-19 2021-07-09 Completed Unive rsity of PFIZER VACCINE 00:00:00 [facility] Influenza Virus 2021-07-09 Completed Universit y of Vaccine Quad .5 mL IM 00:00:00 [facility] 6[facility] Branch SARS-COV-2 COVID-19 2021-07-09 Completed Unive rsity of PFIZER VACCINE 00:00:00 [facility] Influenza Virus 2021-07-09 Completed Universit y of Vaccine Quad .5 mL IM 00:00:00 [facility] 6[facility] MO Branch SARS-COV-2 COVID-19 2021-07-09 Completed Unive rsity of PFIZER VACCINE 00:00:00 [facility] Influenza Virus 2021-07-09 Completed Universit y of Vaccine Quad .5 mL IM 00:00:00 [facility] 6[facility] MO Branch SARS-COV-2 COVID-19 2021-07-09 Completed Unive rsity of PFIZER VACCINE 00:00:00 [facility] Influenza Virus 2021-07-09 Completed Universit y of Vaccine Quad .5 mL IM 00:00:00 [facility] 6[facility] Branch SARS-COV-2 COVID-19 2021-07-09 Completed Unive rsity of PFIZER VACCINE 00:00:00 [facility] Influenza Virus 2021-07-09 Completed Universit y of Vaccine Quad .5 mL IM 00:00:00 [facility] 6[facility] Branch SARS-COV-2 COVID-19 2021-07-09 Completed Unive rsity of PFIZER VACCINE 00:00:00 [facility] Influenza Virus 2021-07-09 Completed Universit y of Vaccine Quad .5 mL IM 00:00:00 [facility] 6[facility] Branch SARS-COV-2 COVID-19 2021-07-09 Completed Unive rsity of PFIZER VACCINE 00:00:00 [facility] Influenza Virus 2021-07-09 Completed Universit y of Vaccine Quad .5 mL IM 00:00:00 [facility] 6[facility] Branch SARS-COV-2 COVID-19 2021-07-09 Completed Unive rsity of PFIZER VACCINE 00:00:00 [facility] Influenza Virus 2021-07-09 Completed Universit y of Vaccine Quad .5 mL IM 00:00:00 [facility] 6[facility] Branch SARS-COV-2 COVID-19 2021-07-09 Completed Unive rsity of PFIZER VACCINE 00:00:00 [facility] Influenza Virus 2021-07-09 Completed Universit y of Vaccine Quad .5 mL IM 00:00:00 [facility] 6[facility] Branch SARS-COV-2 COVID-19 2021-07-09 Completed Unive rsity of PFIZER VACCINE 00:00:00 [facility] Influenza Virus 2021-07-09 Completed Universit y of Vaccine Quad .5 mL IM 00:00:00 [facility] 6[facility] MO Branch SARS-COV-2 COVID-19 2021-07-09 Completed Unive rsity of PFIZER VACCINE 00:00:00 [facility] Influenza Virus 2021-07-09 Completed Universit y of Vaccine Quad .5 mL IM 00:00:00 [facility] 6[facility] MO Branch SARS-COV-2 COVID-19 2021-07-09 Completed Unive rsity of PFIZER VACCINE 00:00:00 [facility] Influenza Virus 2021-07-09 Completed Universit y of Vaccine Quad .5 mL IM 00:00:00 [facility] 6[facility] Branch SARS-COV-2 COVID-19 2021-07-09 Completed Unive rsity of PFIZER VACCINE 00:00:00 [facility] Influenza Virus 2021-07-09 Completed Universit y of Vaccine Quad .5 mL IM 00:00:00 [facility] 6[facility] MO Branch SARS-COV-2 COVID-19 2021-07-09 Completed Unive rsity of PFIZER VACCINE 00:00:00 [facility] Influenza Virus 2021-07-09 Completed Universit y of Vaccine Quad .5 mL IM 00:00:00 [facility] 6[facility] MO Branch SARS-COV-2 COVID-19 2021-07-09 Completed Unive rsity of PFIZER VACCINE 00:00:00 [facility] Influenza Virus 2021-07-09 Completed Universit y of Vaccine Quad .5 mL IM 00:00:00 [facility] 6[facility] MO Branch SARS-COV-2 COVID-19 2021-07-09 Completed Unive rsity of PFIZER VACCINE 00:00:00 [facility] Influenza Virus 2021-07-09 Completed Universit y of Vaccine Quad .5 mL IM 00:00:00 [facility] 6[facility] MO Branch SARS-COV-2 COVID-19 2021-07-09 Completed Unive rsity of PFIZER VACCINE 00:00:00 [facility] Influenza Virus 2021-07-09 Completed Universit y of Vaccine Quad .5 mL IM 00:00:00 [facility] 6[facility] Branch SARS-COV-2 COVID-19 2021-07-09 Completed Unive rsity of PFIZER VACCINE 00:00:00 [facility] Influenza Virus 2021-07-09 Completed Universit y of Vaccine Quad .5 mL IM 00:00:00 [facility] 6[facility] MO Branch SARS-COV-2 COVID-19 2021-07-09 Completed Unive rsity of PFIZER VACCINE 00:00:00 [facility] Influenza Virus 2021-07-09 Completed Universit y of Vaccine Quad .5 mL IM 00:00:00 [facility] 6[facility] MO Branch SARS-COV-2 COVID-19 2021-07-09 Completed Unive rsity of PFIZER VACCINE 00:00:00 [facility] Influenza Virus 2021-07-09 Completed Universit y of Vaccine Quad .5 mL IM 00:00:00 [facility] 6[facility] MO Branch SARS-COV-2 COVID-19 2021-07-09 Completed Unive rsity of PFIZER VACCINE 00:00:00 [facility] Influenza Virus 2021-07-09 Completed Universit y of Vaccine Quad .5 mL IM 00:00:00 [facility] 6[facility] MO Branch SARS-COV-2 COVID-19 2021-07-09 Completed Unive rsity of PFIZER VACCINE 00:00:00 [facility] Influenza Virus 2021-07-09 Completed Universit y of Vaccine Quad .5 mL IM 00:00:00 [facility] Medical 6+ MO [place] PFIZER COVID-19 MRNA 2021-07-09 Completed Meth odist VACCINATION 00:00:00 [facility] PFIZER COVID-19 MRNA 2021-07-09 Completed Meth odist VACCINATION 00:00:00 [facility] PFIZER COVID-19 MRNA 2021-07-09 Completed Meth odist VACCINATION 00:00:00 [facility] PFIZER COVID-19 MRNA 2021-07-09 Completed Meth odist VACCINATION 00:00:00 Hospital PFIZER COVID-19 MRNA 2021-07-09 Completed Meth odist VACCINATION 00:00:00 [facility] PFIZER COVID-19 MRNA 2021-07-09 Completed Meth odist VACCINATION 00:00:00 [facility] PFIZER COVID-19 MRNA 2021-07-09 Completed Meth odist VACCINATION 00:00:00 [facility] PFIZER COVID-19 MRNA 2021-07-09 Completed Meth odist VACCINATION 00:00:00 [facility] PFIZER COVID-19 MRNA 2021-07-09 Completed Meth odist VACCINATION 00:00:00 [facility] Tetanus/Diptheria 2016-08-11 Completed Univers ity of 00:00:00 [facility] Varicella 2016-08-11 Completed University of (varivax)(chicken 00:00:00 [facility] edical pox) Branch Tetanus/Diptheria 2016-08-11 Completed Univers ity of 00:00:00 [facility] Varicella 2016-08-11 Completed University of (varivax)(chicken 00:00:00 [facility] edical pox) Branch Tetanus/Diptheria 2016-08-11 Completed Univers ity of 00:00:00 [facility] Varicella 2016-08-11 Completed University of (varivax)(chicken 00:00:00 [facility] edical pox) Branch Tetanus/Diptheria 2016-08-11 Completed Univers ity of 00:00:00 [facility] Varicella 2016-08-11 Completed University of (varivax)(chicken 00:00:00 [facility] edical pox) Branch Tetanus/Diptheria 2016-08-11 Completed Univers ity of 00:00:00 [facility] Varicella 2016-08-11 Completed University of (varivax)(chicken 00:00:00 [place] [facility] ed[facility] pox) Branch Tetanus/Diptheria 2016-08-11 Completed Univers ity of 00:00:00 [facility] Varicella 2016-08-11 Completed University of (varivax)(chicken 00:00:00 [place] [facility] ed[facility] pox) Branch Tetanus/Diptheria 2016-08-11 Completed Univers ity of 00:00:00 [facility] Varicella 2016-08-11 Completed University of (varivax)(chicken 00:00:00 [place] [facility] pox) Branch Tetanus/Diptheria 2016-08-11 Completed Univers ity of 00:00:00 [facility] Varicella 2016-08-11 Completed University of (varivax)(chicken 00:00:00 [place] [facility] ed[facility] pox) Branch Tetanus/Diptheria 2016-08-11 Completed Univers ity of 00:00:00 [facility] Varicella 2016-08-11 Completed University of (varivax)(chicken 00:00:00 [place] [facility] ed[facility] pox) Branch Tetanus/Diptheria 2016-08-11 Completed Univers ity of 00:00:00 [facility] Varicella 2016-08-11 Completed University of (varivax)(chicken 00:00:00 [place] [facility] ed[facility] pox) Branch Tetanus/Diptheria 2016-08-11 Completed Univers ity of 00:00:00 [facility] Varicella 2016-08-11 Completed University of (varivax)(chicken 00:00:00 [place] [facility] pox) Branch Tetanus/Diptheria 2016-08-11 Completed Univers ity of 00:00:00 [facility] Varicella 2016-08-11 Completed University of (varivax)(chicken 00:00:00 [place] [facility] ed[facility] pox) Branch Tetanus/Diptheria 2016-08-11 Completed Univers ity of 00:00:00 [facility] Varicella 2016-08-11 Completed University of (varivax)(chicken 00:00:00 [place] [facility] ed[facility] pox) Branch Tetanus/Diptheria 2016-08-11 Completed Univers ity of 00:00:00 [facility] Varicella 2016-08-11 Completed University of (varivax)(chicken 00:00:00 [place] [facility] ed[facility] pox) Branch Tetanus/Diptheria 2016-08-11 Completed Univers ity of 00:00:00 [facility] Varicella 2016-08-11 Completed University of (varivax)(chicken 00:00:00 [place] [facility] ed[facility] pox) Branch Tetanus/Diptheria 2016-08-11 Completed Univers ity of 00:00:00 [facility] Varicella 2016-08-11 Completed University of (varivax)(chicken 00:00:00 [place] [facility] edical pox) Branch Tetanus/Diptheria 2016-08-11 Completed Univers ity of 00:00:00 [facility] Varicella 2016-08-11 Completed University of (varivax)(chicken 00:00:00 [place] [facility] ed[facility] pox) Branch Tetanus/Diptheria 2016-08-11 Completed Univers ity of 00:00:00 [facility] Varicella 2016-08-11 Completed University of (varivax)(chicken 00:00:00 [place] [facility] ed[facility] pox) Branch Tetanus/Diptheria 2016-08-11 Completed Univers ity of 00:00:00 [facility] Varicella 2016-08-11 Completed University of (varivax)(chicken 00:00:00 [place] [facility] ed[facility] pox) Branch Tetanus/Diptheria 2016-08-11 Completed Univers ity of 00:00:00 [facility] Varicella 2016-08-11 Completed University of (varivax)(chicken 00:00:00 [place] [facility] ed[facility] pox) Branch Tetanus/Diptheria 2016-08-11 Completed Univers ity of 00:00:00 [facility] Varicella 2016-08-11 Completed University of (varivax)(chicken 00:00:00 [place] [facility] ed[facility] pox) Branch Tetanus/Diptheria 2016-08-11 Completed Univers ity of 00:00:00 [facility] Varicella 2016-08-11 Completed University of (varivax)(chicken 00:00:00 [place] [facility] edical pox) Branch Tetanus/Diptheria 2016-08-11 Completed Univers ity of 00:00:00 [facility] Varicella 2016-08-11 Completed University of (varivax)(chicken 00:00:00 [place] [facility] edical pox) Branch Tetanus/Diptheria 2016-08-11 Completed Univers ity of 00:00:00 [facility] Varicella 2016-08-11 Completed University of (varivax)(chicken 00:00:00 [place] [facility] ed[facility] pox) Branch Tetanus/Diptheria 2016-08-11 Completed Univers ity of 00:00:00 [facility] Varicella 2016-08-11 Completed University of (varivax)(chicken 00:00:00 [place] [facility] edical pox) Branch Tetanus/Diptheria 2016-08-11 Completed Univers ity of 00:00:00 [place] [facility] Varicella 2016-08-11 Completed University of (varivax)(chicken [...] HEPATITIS A 2008-09-27 Completed University of 00:00:00 [facility] Branch HPV 2008-09-27 Completed University of 00:00:00 [facility] Branch HEPATITIS A 2008-09-27 Completed University of 00:00:00 [facility] Branch HPV 2008-09-27 Completed University of 00:00:00 [facility] Branch HEPATITIS A 2008-09-27 Completed University of 00:00:00 [facility] Branch HPV 2008-09-27 Completed University of 00:00:00 [facility] Branch HEPATITIS A 2008-09-27 Completed University of 00:00:00 [facility] Branch HPV 2008-09-27 Completed University of 00:00:00 [facility] Branch HEPATITIS A 2008-09-27 Completed University of 00:00:00 [facility] Branch HPV 2008-09-27 Completed University of 00:00:00 [facility] Branch HEPATITIS A 2008-09-27 Completed University of 00:00:00 [facility] HPV 2008-09-27 Completed University of 00:00:00 [place] [facility] HEPATITIS A 2008-09-27 Completed University [...] HEPATITIS A 2008-03-06 Completed University of 00:00:00 [facility] HPV 2008-03-06 Completed University of 00:00:00 [facility] HEPATITIS A 2008-03-06 Completed University of 00:00:00 [facility] HPV 2008-03-06 Completed University of 00:00:00 [facility] Meningococcal 2007-12-29 Completed University of Polysaccharide 00:00:00 [place] [facility] (groups A, C, Y and Branc h W-135) conjugate vaccine (MCV4P) TDAP 2007-12-29 Completed University of 00:00:00 [facility] Meningococcal 2007-12-29 Completed University of Polysaccharide 00:00:00 [place] [facility] (groups A, C, Y and Branc h W-135) conjugate vaccine (MCV4P) TDAP 2007-12-29 Completed University of 00:00:00 [facility] Meningococcal 2007-12-29 Completed University of Polysaccharide 00:00:00 [place] [facility] (groups A, C, Y and Branc h W-135) conjugate vaccine (MCV4P) TDAP 2007-12-29 Completed University of 00:00:00 [facility] Meningococcal 2007-12-29 Completed University of Polysaccharide 00:00:00 [place] [facility] (groups A, C, Y and Branc h W-135) conjugate vaccine (MCV4P) TDAP 2007-12-29 Completed University of 00:00:00 [facility] Meningococcal 2007-12-29 Completed University of Polysaccharide 00:00:00 [place] [facility] (groups A, C, Y and Branc h W-135) conjugate vaccine (MCV4P) TDAP 2007-12-29 Completed University of 00:00:00 [facility] Meningococcal 2007-12-29 Completed University of Polysaccharide 00:00:00 [place] [facility] (groups A, C, Y and Branc h W-135) conjugate vaccine (MCV4P) TDAP 2007-12-29 Completed University of 00:00:00 [facility] Meningococcal 2007-12-29 Completed University of Polysaccharide 00:00:00 [place] [facility] (groups A, C, Y and Branc h W-135) conjugate vaccine (MCV4P) TDAP 2007-12-29 Completed University of 00:00:00 [facility] Meningococcal 2007-12-29 Completed University of Polysaccharide 00:00:00 [place] [facility] (groups A, C, Y and Branc h W-135) conjugate vaccine (MCV4P) TDAP 2007-12-29 Completed University of 00:00:00 [facility] Meningococcal 2007-12-29 Completed University of Polysaccharide 00:00:00 [place] [facility] (groups A, C, Y and Branc h W-135) conjugate vaccine (MCV4P) TDAP 2007-12-29 Completed University of 00:00:00 [facility] Meningococcal 2007-12-29 Completed University of Polysaccharide 00:00:00 [place] [facility] (groups A, C, Y and Branc h W-135) conjugate vaccine (MCV4P) TDAP 2007-12-29 Completed University of 00:00:00 [facility] Meningococcal 2007-12-29 Completed University of Polysaccharide 00:00:00 [place] [facility] (groups A, C, Y and Branc h W-135) conjugate vaccine (MCV4P) TDAP 2007-12-29 Completed University of 00:00:00 [facility] Meningococcal 2007-12-29 Completed University of Polysaccharide 00:00:00 [place] [facility] (groups A, C, Y and Branc h W-135) conjugate vaccine (MCV4P) TDAP 2007-12-29 Completed University of 00:00:00 [facility] Meningococcal 2007-12-29 Completed University of Polysaccharide 00:00:00 [place] [facility] (groups A, C, Y and Branc h W-135) conjugate vaccine (MCV4P) TDAP 2007-12-29 Completed University of 00:00:00 [facility] Meningococcal 2007-12-29 Completed University of Polysaccharide 00:00:00 [place] [facility] (groups A, C, Y and Branc h W-135) conjugate vaccine (MCV4P) TDAP 2007-12-29 Completed University of 00:00:00 [facility] Meningococcal 2007-12-29 Completed University of Polysaccharide 00:00:00 [place] [facility] (groups A, C, Y and Branc h W-135) conjugate vaccine (MCV4P) TDAP 2007-12-29 Completed University of 00:00:00 [facility] Meningococcal 2007-12-29 Completed University of Polysaccharide 00:00:00 [place] [facility] (groups A, C, Y and Branc h W-135) conjugate vaccine (MCV4P) TDAP 2007-12-29 Completed University of 00:00:00 [facility] Meningococcal 2007-12-29 Completed University of Polysaccharide 00:00:00 [place] [facility] (groups A, C, Y and Branc h W-135) conjugate vaccine (MCV4P) TDAP 2007-12-29 Completed University of 00:00:00 [facility] Meningococcal 2007-12-29 Completed University of Polysaccharide 00:00:00 [place] [facility] (groups A, C, Y and Branc h W-135) conjugate vaccine (MCV4P) TDAP 2007-12-29 Completed University of 00:00:00 [facility] Meningococcal 2007-12-29 Completed University of Polysaccharide 00:00:00 [place] [facility] (groups A, C, Y and Branc h W-135) conjugate vaccine (MCV4P) TDAP 2007-12-29 Completed University of 00:00:00 [facility] Meningococcal 2007-12-29 Completed University of Polysaccharide 00:00:00 [place] [facility] (groups A, C, Y and Branc h W-135) conjugate vaccine (MCV4P) TDAP 2007-12-29 Completed University of 00:00:00 [facility] Meningococcal 2007-12-29 Completed University of Polysaccharide 00:00:00 [place] [facility] (groups A, C, Y and Branc h W-135) conjugate vaccine (MCV4P) TDAP 2007-12-29 Completed University of 00:00:00 [facility] Meningococcal 2007-12-29 Completed University of Polysaccharide 00:00:00 [place] [facility] (groups A, C, Y and Branc h W-135) conjugate vaccine (MCV4P) TDAP 2007-12-29 Completed University of 00:00:00 [facility] Meningococcal 2007-12-29 Completed University of Polysaccharide 00:00:00 [place] [facility] (groups A, C, Y and Branc h W-135) conjugate vaccine (MCV4P) TDAP 2007-12-29 Completed University of 00:00:00 [facility] Meningococcal 2007-12-29 Completed University of Polysaccharide 00:00:00 [place] [facility] (groups A, C, Y and Branc h W-135) conjugate vaccine (MCV4P) TDAP 2007-12-29 Completed University of 00:00:00 [facility] Meningococcal 2007-12-29 Completed University of Polysaccharide 00:00:00 [place] [facility] (groups A, C, Y and Branc h W-135) conjugate vaccine (MCV4P) TDAP 2007-12-29 Completed University 00:00:00 [facility] Meningococcal 2007-12-29 Completed [facility] Polysaccharide 00:00:00 [facility] shanice (groups A, C, Y and Branc h W-135) conjugate vaccine (MCV4P) TDAP 2007-12-29 Completed [facility] 00:00:00 [facility] DTaP, Unspecified 1998-01-03 Completed [facility] Formulation 00:00:00 [facility] Hep B, Adol or Pedi 1998-01-03 Completed [facility] Dosage 00:00:00 [facility] Poliovirus, Live, 1998-01-03 Completed [facility] Oral, Trivalent 00:00:00 [facility] DTaP, Unspecified 1998-01-03 Completed [facility] Formulation 00:00:00 [facility] Hep B, Adol or Pedi 1998-01-03 Completed [facility] Dosage 00:00:00 [facility] Poliovirus, Live, 1998-01-03 Completed [facility] Oral, Trivalent 00:00:00 [facility] DTaP, Unspecified 1998-01-03 Completed [facility] Formulation 00:00:00 [facility] Hep B, Adol or Pedi 1998-01-03 Completed [facility] Dosage 00:00:00 [facility] Poliovirus, Live, 1998-01-03 Completed [facility] Oral, Trivalent 00:00:00 [facility] DTaP, Unspecified 1998-01-03 Completed [facility] Formulation 00:00:00 [facility] Hep B, Adol or Pedi 1998-01-03 Completed [facility] Dosage 00:00:00 [facility] Poliovirus, Live, 1998-01-03 Completed [facility] Oral, Trivalent 00:00:00 [facility] DTaP, Unspecified 1998-01-03 Completed [facility] Formulation 00:00:00 [facility] Hep B, Adol or Pedi 1998-01-03 Completed [facility] Dosage 00:00:00 [facility] Poliovirus, Live, 1998-01-03 Completed [facility] Oral, Trivalent 00:00:00 [facility] DTaP, Unspecified 1998-01-03 Completed [facility] Formulation 00:00:00 [facility] Hep B, Adol or Pedi 1998-01-03 Completed [facility] Dosage 00:00:00 [facility] Poliovirus, Live, 1998-01-03 Completed [facility] Oral, Trivalent 00:00:00 [facility] DTaP, Unspecified 1998-01-03 Completed [facility] Formulation 00:00:00 [facility] Hep B, Adol or Pedi 1998-01-03 Completed [facility] Dosage 00:00:00 [facility] Poliovirus, Live, 1998-01-03 Completed [facility] Oral, Trivalent 00:00:00 [facility] DTaP, Unspecified 1998-01-03 Completed [facility] Formulation 00:00:00 [facility] Hep B, Adol or Pedi 1998-01-03 Completed [facility] Dosage 00:00:00 [facility] Poliovirus, Live, 1998-01-03 Completed [facility] Oral, Trivalent 00:00:00 [facility] DTaP, Unspecified 1998-01-03 Completed [facility] Formulation 00:00:00 [facility] Hep B, Adol or Pedi 1998-01-03 Completed [facility] Dosage 00:00:00 [facility] Poliovirus, Live, 1998-01-03 Completed [facility] Oral, Trivalent 00:00:00 [facility] DTaP, Unspecified 1998-01-03 Completed [facility] Formulation 00:00:00 [facility] Hep B, Adol or Pedi 1998-01-03 Completed [facility] Dosage 00:00:00 [facility] Poliovirus, Live, 1998-01-03 Completed [facility] Oral, Trivalent 00:00:00 [facility] DTaP, Unspecified 1998-01-03 Completed [facility] Formulation 00:00:00 [facility] Hep B, Adol or Pedi 1998-01-03 Completed [facility] Dosage 00:00:00 [facility] Poliovirus, Live, 1998-01-03 Completed [facility] Oral, Trivalent 00:00:00 [facility] DTaP, Unspecified 1998-01-03 Completed [facility] Formulation 00:00:00 [facility] Hep B, Adol or Pedi 1998-01-03 Completed [facility] Dosage 00:00:00 [facility] Poliovirus, Live, 1998-01-03 Completed [facility] Oral, Trivalent 00:00:00 [facility] DTaP, Unspecified 1998-01-03 Completed [facility] Formulation 00:00:00 [facility] Hep B, Adol or Pedi 1998-01-03 Completed [facility] Dosage 00:00:00 [facility] Poliovirus, Live, 1998-01-03 Completed [facility] Oral, Trivalent 00:00:00 [facility] DTaP, Unspecified 1998-01-03 Completed [facility] Formulation 00:00:00 [facility] Hep B, Adol or Pedi 1998-01-03 Completed [facility] Dosage 00:00:00 [facility] Poliovirus, Live, 1998-01-03 Completed [facility] Oral, Trivalent 00:00:00 [facility] DTaP, Unspecified 1998-01-03 Completed [facility] Formulation 00:00:00 [facility] Hep B, Adol or Pedi 1998-01-03 Completed [facility] of Dosage 00:00:00 [facility] Poliovirus, Live, 1998-01-03 Completed [facility] Oral, Trivalent 00:00:00 [facility] DTaP, Unspecified 1998-01-03 Completed [facility] Formulation 00:00:00 [facility] Hep B, Adol or Pedi 1998-01-03 Completed [facility] Dosage 00:00:00 [facility] Poliovirus, Live, 1998-01-03 Completed [facility] Oral, Trivalent 00:00:00 [facility] DTaP, Unspecified 1998-01-03 Completed [facility] Formulation 00:00:00 [facility] Hep B, Adol or Pedi 1998-01-03 Completed [facility] Dosage 00:00:00 [facility] Poliovirus, Live, 1998-01-03 Completed [facility] Oral, Trivalent 00:00:00 [facility] DTaP, Unspecified 1998-01-03 Completed [facility] Formulation 00:00:00 [facility] Hep B, Adol or Pedi 1998-01-03 Completed [facility] of Dosage 00:00:00 [facility] Poliovirus, Live, 1998-01-03 Completed [facility] Oral, Trivalent 00:00:00 [facility] DTaP, Unspecified 1998-01-03 Completed [facility] Formulation 00:00:00 [facility] Hep B, Adol or Pedi 1998-01-03 Completed [facility] Dosage 00:00:00 [facility] Poliovirus, Live, 1998-01-03 Completed [facility] Oral, Trivalent 00:00:00 [facility] DTaP, Unspecified 1998-01-03 Completed [facility] Formulation 00:00:00 [facility] Hep B, Adol or Pedi 1998-01-03 Completed [facility] of Dosage 00:00:00 [facility] Poliovirus, Live, 1998-01-03 Completed [facility] Oral, Trivalent 00:00:00 [facility] DTaP, Unspecified 1998-01-03 Completed [facility] Formulation 00:00:00 [facility] Hep B, Adol or Pedi 1998-01-03 Completed [facility] of Dosage 00:00:00 [facility] Poliovirus, Live, 1998-01-03 Completed [facility] Oral, Trivalent 00:00:00 [facility] DTaP, Unspecified 1998-01-03 Completed [facility] Formulation 00:00:00 [facility] Hep B, Adol or Pedi 1998-01-03 Completed [facility] of Dosage 00:00:00 [facility] Poliovirus, Live, 1998-01-03 Completed [facility] Oral, Trivalent 00:00:00 [facility] DTaP, Unspecified 1998-01-03 Completed [facility] Formulation 00:00:00 [facility] Hep B, Adol or Pedi 1998-01-03 Completed [facility] of Dosage 00:00:00 [facility] Poliovirus, Live, 1998-01-03 Completed [facility] Oral, Trivalent 00:00:00 [facility] DTaP, Unspecified 1998-01-03 Completed [facility] Formulation 00:00:00 [facility] Hep B, Adol or Pedi 1998-01-03 Completed [facility] of Dosage 00:00:00 [facility] Poliovirus, Live, 1998-01-03 Completed [facility] Oral, Trivalent 00:00:00 [facility] DTaP, Unspecified 1998-01-03 Completed [facility] Formulation 00:00:00 [facility] Hep B, Adol or Pedi 1998-01-03 Completed [facility] of Dosage 00:00:00 [facility] Poliovirus, Live, 1998-01-03 Completed [facility] Oral, Trivalent 00:00:00 [facility] DTaP, Unspecified 1998-01-03 Completed [facility] Formulation 00:00:00 [facility] Hep B, Adol or Pedi 1998-01-03 Completed [facility] of Dosage 00:00:00 [facility] Poliovirus, Live, 1998-01-03 Completed [facility] Oral, Trivalent 00:00:00 [facility] Hep B, Unspecified 1997-03-28 Completed [facility] Formulation 00:00:00 [facility] Hep B, Adol or Pedi 1997-03-28 Completed [facility] Dosage 00:00:00 [facility] MMR 1997-03-28 Completed [facility] 00:00:00 [facility] Hep B, Unspecified 1997-03-28 Completed [facility] Formulation 00:00:00 [facility] Hep B, Adol or Pedi 1997-03-28 Completed [facility] of Dosage 00:00:00 [facility] MMR 1997-03-28 Completed [facility] 00:00:00 [facility] Hep B, Unspecified 1997-03-28 Completed [facility] Formulation 00:00:00 [facility] Hep B, Adol or Pedi 1997-03-28 Completed [facility] of Dosage 00:00:00 [facility] MMR 1997-03-28 Completed [facility] 00:00:00 [facility] Hep B, Unspecified 1997-03-28 Completed [facility] Formulation 00:00:00 [facility] Hep B, Adol or Pedi 1997-03-28 Completed [facility] of Dosage 00:00:00 [facility] MMR 1997-03-28 Completed [facility] 00:00:00 [facility] Hep B, Unspecified 1997-03-28 Completed [facility] Formulation 00:00:00 [facility] Hep B, Adol or Pedi 1997-03-28 Completed [facility] of Dosage 00:00:00 [facility] MMR 1997-03-28 Completed [facility] 00:00:00 [facility] Hep B, Unspecified 1997-03-28 Completed [facility] Formulation 00:00:00 [facility] Hep B, Adol or Pedi 1997-03-28 Completed [facility] of Dosage 00:00:00 [facility] MMR 1997-03-28 Completed [facility] 00:00:00 [facility] Hep B, Unspecified 1997-03-28 Completed [facility] Formulation 00:00:00 [facility] Hep B, Adol or Pedi 1997-03-28 Completed [facility] of Dosage 00:00:00 [facility] MMR 1997-03-28 Completed [facility] 00:00:00 [facility] Hep B, Unspecified 1997-03-28 Completed [facility] Formulation 00:00:00 [facility] Hep B, Adol or Pedi 1997-03-28 Completed [facility] of Dosage 00:00:00 [facility] MMR 1997-03-28 Completed [facility] 00:00:00 [facility] Hep B, Unspecified 1997-03-28 Completed [facility] Formulation 00:00:00 [facility] Hep B, Adol or Pedi 1997-03-28 Completed [facility] of Dosage 00:00:00 [facility] MMR 1997-03-28 Completed [facility] 00:00:00 [facility] Hep B, Unspecified 1997-03-28 Completed [facility] Formulation 00:00:00 [facility] Hep B, Adol or Pedi 1997-03-28 Completed [facility] of Dosage 00:00:00 [facility] MMR 1997-03-28 Completed [facility] 00:00:00 [facility] Hep B, Unspecified 1997-03-28 Completed [facility] Formulation 00:00:00 [facility] Hep B, Adol or Pedi 1997-03-28 Completed [facility] of Dosage 00:00:00 [facility] MMR 1997-03-28 Completed [facility] 00:00:00 [facility] Hep B, Unspecified 1997-03-28 Completed [facility] Formulation 00:00:00 [facility] Hep B, Adol or Pedi 1997-03-28 Completed [facility] of Dosage 00:00:00 [facility] MMR 1997-03-28 Completed [facility] 00:00:00 [facility] Hep B, Unspecified 1997-03-28 Completed [facility] Formulation 00:00:00 [facility] Hep B, Adol or Pedi 1997-03-28 Completed [facility] of Dosage 00:00:00 [facility] MMR 1997-03-28 Completed [facility] 00:00:00 [facility] Hep B, Unspecified 1997-03-28 Completed [facility] Formulation 00:00:00 [facility] Hep B, Adol or Pedi 1997-03-28 Completed [facility] of Dosage 00:00:00 [facility] MMR 1997-03-28 Completed [facility] 00:00:00 [facility] Hep B, Unspecified 1997-03-28 Completed [facility] Formulation 00:00:00 [facility] Hep B, Adol or Pedi 1997-03-28 Completed [facility] of Dosage 00:00:00 [facility] MMR 1997-03-28 Completed [facility] 00:00:00 [facility] Hep B, Unspecified 1997-03-28 Completed [facility] Formulation 00:00:00 [facility] Hep B, Adol or Pedi 1997-03-28 Completed [facility] of Dosage 00:00:00 [facility] MMR 1997-03-28 Completed [facility] 00:00:00 [facility] Hep B, Unspecified 1997-03-28 Completed [facility] Formulation 00:00:00 [facility] Hep B, Adol or Pedi 1997-03-28 Completed [facility] Dosage 00:00:00 [facility] MMR 1997-03-28 Completed [facility] 00:00:00 [facility] Hep B, Unspecified 1997-03-28 Completed [facility] Formulation 00:00:00 [facility] Hep B, Adol or Pedi 1997-03-28 Completed [facility] of Dosage 00:00:00 [facility] MMR 1997-03-28 Completed [facility] [...] 1997-03-28 Completed [facility] Dosage 00:00:00 [facility] MMR 1997-03-28 Completed [facility] 00:00:00 [facility] Hep B, Unspecified 1997-03-28 Completed [facility] Formulation 00:00:00 [facility] Hep B, Adol or Pedi 1997-03-28 Completed [facility] of Dosage 00:00:00 [facility] MMR 1997-03-28 Completed [facility] 00:00:00 [facility] Hep B, Unspecified 1997-03-28 Completed [facility] Formulation 00:00:00 [facility] Hep B, Adol or Pedi 1997-03-28 Completed [facility] of Dosage 00:00:00 [facility] MMR 1997-03-28 Completed [facility] 00:00:00 [facility] Hep B, Unspecified 1997-03-28 Completed [facility] of Formulation 00:00:00 [facility] Hep B, Adol or Pedi 1997-03-28 Completed [facility] of Dosage 00:00:00 [facility] MMR 1997-03-28 Completed [facility] 00:00:00 [facility] Hep B, Unspecified 1997-03-28 Completed [facility] Formulation 00:00:00 [facility] Hep B, Adol or Pedi 1997-03-28 Completed [facility] of Dosage 00:00:00 [facility] MMR 1997-03-28 Completed [facility] 00:00:00 [facility] Hep B, Unspecified 1997-03-28 Completed [facility] of Formulation 00:00:00 [facility] Hep B, Adol or Pedi 1997-03-28 Completed [facility] of Dosage 00:00:00 [facility] MMR 1997-03-28 Completed [facility] 00:00:00 [facility] Hep B, Unspecified 1997-03-28 Completed [facility] Formulation 00:00:00 [facility] Hep B, Adol or Pedi 1997-03-28 Completed [facility] of Dosage 00:00:00 [facility] MMR 1997-03-28 Completed [facility] 00:00:00 [facility] 1994-05-19 Completed [facility] 00:00:00 [facility] Hib-HbOC 1994-05-19 Completed [facility] 00:00:00 [facility] MMR 1994-05-19 Completed [facility] 00:00:00 [facility] Poliovirus, Live, 1994-05-19 Completed [facility] Oral, Trivalent 00:00:00 [facility] 1994-05-19 Completed [facility] 00:00:00 [facility] Hib-HbOC 1994-05-19 Completed [facility] 00:00:00 [facility] MMR 1994-05-19 Completed [facility] 00:00:00 [facility] Poliovirus, Live, 1994-05-19 Completed [facility] of Oral, Trivalent 00:00:00 [facility] 1994-05-19 Completed [facility] 00:00:00 [facility] Hib-HbOC 1994-05-19 Completed [facility] 00:00:00 [facility] MMR 1994-05-19 Completed [facility] 00:00:00 [facility] Poliovirus, Live, 1994-05-19 Completed [facility] Oral, Trivalent 00:00:00 [facility] 1994-05-19 Completed [facility] 00:00:00 [facility] Hib-HbOC 1994-05-19 Completed [facility] 00:00:00 [facility] MMR 1994-05-19 Completed [facility] 00:00:00 [facility] Poliovirus, Live, 1994-05-19 Completed [facility] of Oral, Trivalent 00:00:00 [facility] 1994-05-19 Completed [facility] 00:00:00 [facility] Hib-HbOC 1994-05-19 Completed [facility] 00:00:00 [facility] MMR 1994-05-19 Completed [facility] 00:00:00 [facility] Poliovirus, Live, 1994-05-19 Completed [facility] of Oral, Trivalent 00:00:00 [facility] 1994-05-19 Completed [facility] 00:00:00 [facility] Hib-HbOC 1994-05-19 Completed [facility] 00:00:00 [facility] MMR 1994-05-19 Completed [facility] 00:00:00 [facility] Poliovirus, Live, 1994-05-19 Completed [facility] of Oral, Trivalent 00:00:00 [facility] 1994-05-19 Completed [facility] 00:00:00 [facility] Hib-HbOC 1994-05-19 Completed [facility] 00:00:00 [facility] MMR 1994-05-19 Completed [facility] 00:00:00 [facility] Poliovirus, Live, 1994-05-19 Completed [facility] of Oral, Trivalent 00:00:00 [facility] 1994-05-19 Completed [facility] 00:00:00 [facility] Hib-HbOC 1994-05-19 Completed [facility] 00:00:00 [facility] MMR 1994-05-19 Completed [facility] 00:00:00 [facility] Poliovirus, Live, 1994-05-19 Completed [facility] of Oral, Trivalent 00:00:00 [facility] 1994-05-19 Completed [facility] 00:00:00 [facility] Hib-HbOC 1994-05-19 Completed [facility] 00:00:00 [facility] MMR 1994-05-19 Completed [facility] 00:00:00 [facility] Poliovirus, Live, 1994-05-19 Completed [facility] of Oral, Trivalent 00:00:00 [facility] 1994-05-19 Completed [facility] 00:00:00 [facility] Hib-HbOC 1994-05-19 Completed [facility] 00:00:00 [facility] MMR 1994-05-19 Completed [facility] 00:00:00 [facility] Poliovirus, Live, 1994-05-19 Completed [facility] of Oral, Trivalent 00:00:00 [facility] 1994-05-19 Completed [facility] 00:00:00 [facility] Hib-HbOC 1994-05-19 Completed [facility] 00:00:00 [facility] MMR 1994-05-19 Completed [facility] 00:00:00 [facility] Poliovirus, Live, 1994-05-19 Completed [facility] of Oral, Trivalent 00:00:00 [facility] 1994-05-19 Completed [facility] 00:00:00 [facility] Hib-HbOC 1994-05-19 Completed [facility] 00:00:00 [facility] MMR 1994-05-19 Completed [facility] 00:00:00 [facility] Poliovirus, Live, 1994-05-19 Completed [facility] of Oral, Trivalent 00:00:00 [facility] 1994-05-19 Completed [facility] 00:00:00 [facility] Hib-HbOC 1994-05-19 Completed [facility] 00:00:00 [facility] MMR 1994-05-19 Completed [facility] 00:00:00 [facility] Poliovirus, Live, 1994-05-19 Completed [facility] of Oral, Trivalent 00:00:00 [facility] 1994-05-19 Completed [facility] 00:00:00 [facility] Hib-HbOC 1994-05-19 Completed [facility] 00:00:00 [facility] 1994-05-19 Completed [facility] 00:00:00 [facility] Poliovirus, Live, 1994-05-19 Completed [facility] of Oral, Trivalent 00:00:00 [facility] 1994-05-19 Completed [facility] 00:00:00 [facility] Hib-HbOC 1994-05-19 Completed [facility] 00:00:00 [facility] 1994-05-19 Completed [facility] 00:00:00 [facility] Poliovirus, Live, 1994-05-19 Completed [facility] of Oral, Trivalent 00:00:00 [facility] 1994-05-19 Completed [facility] 00:00:00 [facility] Hib-HbOC 1994-05-19 Completed [facility] 00:00:00 [facility] 1994-05-19 Completed [facility] 00:00:00 [facility] Poliovirus, Live, 1994-05-19 Completed [facility] of Oral, Trivalent 00:00:00 [facility] 1994-05-19 Completed [facility] 00:00:00 [facility] Hib-HbOC 1994-05-19 Completed [facility] 00:00:00 [facility] MMR 1994-05-19 Completed [facility] 00:00:00 [facility] Poliovirus, Live, 1994-05-19 Completed [facility] of Oral, Trivalent 00:00:00 [facility] 1994-05-19 Completed [facility] 00:00:00 [facility] Hib-HbOC 1994-05-19 Completed [facility] 00:00:00 [facility] MMR 1994-05-19 Completed [facility] 00:00:00 [facility] Poliovirus, Live, 1994-05-19 Completed [facility] of Oral, Trivalent 00:00:00 [facility] 1994-05-19 Completed [facility] 00:00:00 [facility] Hib-HbOC 1994-05-19 Completed [facility] 00:00:00 [facility] MMR 1994-05-19 Completed [facility] 00:00:00 [facility] Poliovirus, Live, 1994-05-19 Completed [facility] Oral, Trivalent 00:00:00 [facility] 1994-05-19 Completed [facility] 00:00:00 [facility] Hib-HbOC 1994-05-19 Completed [facility] 00:00:00 [facility] MMR 1994-05-19 Completed [facility] 00:00:00 [facility] Poliovirus, Live, 1994-05-19 Completed [facility] of Oral, Trivalent 00:00:00 [facility] 1994-05-19 Completed [facility] 00:00:00 [facility] Hib-HbOC 1994-05-19 Completed [facility] 00:00:00 [facility] MMR 1994-05-19 Completed [facility] 00:00:00 [facility] Poliovirus, Live, 1994-05-19 Completed [facility] of Oral, Trivalent 00:00:00 [facility] 1994-05-19 Completed [facility] 00:00:00 [facility] Hib-HbOC 1994-05-19 Completed [facility] 00:00:00 [facility] MMR 1994-05-19 Completed [facility] 00:00:00 [facility] Poliovirus, Live, 1994-05-19 Completed [facility] Oral, Trivalent 00:00:00 [facility] 1994-05-19 Completed [facility] 00:00:00 [facility] Hib-HbOC 1994-05-19 Completed [facility] 00:00:00 [facility] MMR 1994-05-19 Completed [facility] of 00:00:00 [facility] Poliovirus, Live, 1994-05-19 Completed [facility] Oral, Trivalent 00:00:00 [facility] 1994-05-19 Completed [facility] 00:00:00 [facility] Hib-HbOC 1994-05-19 Completed [facility] of 00:00:00 [facility] MMR 1994-05-19 Completed [facility] 00:00:00 [facility] Poliovirus, Live, 1994-05-19 Completed [facility] Oral, Trivalent 00:00:00 [facility] DTP 1994-05-19 Completed [facility] of 00:00:00 [facility] Hib-HbOC 1994-05-19 Completed [facility] 00:00:00 [facility] MMR 1994-05-19 Completed [facility] 00:00:00 [facility] Poliovirus, Live, 1994-05-19 Completed [facility] Oral, Trivalent 00:00:00 [facility] DTP 1994-05-19 Completed [facility] 00:00:00 [facility] Hib-HbOC 1994-05-19 Completed [facility] 00:00:00 [facility] MMR 1994-05-19 Completed [facility] 00:00:00 [facility] Poliovirus, Live, 1994-05-19 Completed [facility] Oral, Trivalent 00:00:00 [facility] Heamophilus Influenza 1994-05-09 Completed Uni versity of B 00:00:00 [facility] Heamophilus Influenza 1994-05-09 Completed [facility] versity of B 00:00:00 [facility] Heamophilus Influenza 1994-05-09 Completed Uni versity of B 00:00:00 [facility] Heamophilus Influenza 1994-05-09 Completed Uni versity of B 00:00:00 [facility] Heamophilus Influenza 1994-05-09 Completed Uni versity of B 00:00:00 [facility] Heamophilus Influenza 1994-05-09 Completed Uni versity of B 00:00:00 [facility] Heamophilus Influenza 1994-05-09 Completed Uni vers[facility] of B 00:00:00 [facility] Heamophilus Influenza 1994-05-09 Completed Uni versity of B 00:00:00 [facility] Heamophilus Influenza 1994-05-09 Completed Uni versity of B 00:00:00 [facility] Heamophilus Influenza 1994-05-09 Completed [facility] versity of B 00:00:00 [facility] Heamophilus Influenza 1994-05-09 Completed Uni versity of B 00:00:00 [facility] Heamophilus Influenza 1994-05-09 Completed [facility] vers[facility] of B 00:00:00 [facility] Heamophilus Influenza 1994-05-09 Completed [facility] vers[facility] of B 00:00:00 [facility] Heamophilus Influenza 1994-05-09 Completed [facility] vers[facility] of B 00:00:00 [facility] Heamophilus Influenza 1994-05-09 Completed [facility] vers[facility] of B 00:00:00 [facility] Heamophilus Influenza 1994-05-09 Completed [facility] of B 00:00:00 [facility] Heamophilus Influenza 1994-05-09 Completed [facility] vers[facility] of B 00:00:00 [facility] Heamophilus Influenza 1994-05-09 Completed [facility] vers[facility] of B 00:00:00 [facility] Heamophilus Influenza 1994-05-09 Completed [facility] vers[facility] of B 00:00:00 [facility] Heamophilus Influenza 1994-05-09 Completed [facility] vers[facility] of B 00:00:00 [facility] Heamophilus Influenza 1994-05-09 Completed [facility] vers[facility] of B 00:00:00 [facility] Heamophilus Influenza 1994-05-09 Completed [facility] vers[facility] of B 00:00:00 [facility] Heamophilus Influenza 1994-05-09 Completed [facility] vers[facility] of B 00:00:00 [facility] Heamophilus Influenza 1994-05-09 Completed [facility] vers[facility] of B 00:00:00 [facility] Heamophilus Influenza 1994-05-09 Completed [facility] vers[facility] of B 00:00:00 [facility] Heamophilus Influenza 1994-05-09 Completed [facility] vers[facility] of B 00:00:00 [facility] Hep B, Unspecified 1993-04-29 Completed Univer sity of Formulation 00:00:00 [facility] Hep B, Adol or Pedi 1993-04-29 Completed Unive rsity of Dosage 00:00:00 [facility] Hep B, Unspecified 1993-04-29 Completed [facility] of Formulation 00:00:00 [facility] Hep B, Adol or Pedi 1993-04-29 Completed [facility] rs[facility] of Dosage 00:00:00 [facility] Hep B, Unspecified 1993-04-29 Completed [facility] of Formulation 00:00:00 [facility] Hep B, Adol or Pedi 1993-04-29 Completed [facility]ive rs[facility] of Dosage 00:00:00 [facility] Hep B, Unspecified 1993-04-29 Completed [facility]iver [facility] of Formulation 00:00:00 [facility] Hep B, Adol or Pedi [...] 1993-04-29 Completed [facility] of Formulation 00:00:00 [facility] Hep B, Adol or Pedi 1993-04-29 Completed [facility]ive rs[facility] of Dosage 00:00:00 [facility] Hep B, Unspecified 1993-04-29 Completed [facility]iver [facility]ity of Formulation 00:00:00 [facility] Hep B, Adol or Pedi 1993-04-29 Completed [facility]ive rs[facility] of Dosage 00:00:00 [facility] Hep B, Unspecified 1993-04-29 Completed [facility] of Formulation 00:00:00 [facility] Hep B, Adol or Pedi 1993-04-29 Completed Unive rsity of Dosage 00:00:00 [facility] DTP 1992 Completed [facility] 00:00:00 [facility] Heamophilus Influenza 1992 Completed Uni vers[facility] of B 00:00:00 [facility] Hib-HbOC 1992 Completed [facility] 00:00:00 [facility] DTP 1992 Completed [facility] 00:00:00 [facility] Heamophilus Influenza 1992 Completed [facility] vers[facility] B 00:00:00 [facility] Hib-HbOC 1992 Completed [facility] 00:00:00 [facility] DTP 1992 Completed [facility] 00:00:00 [facility] Heamophilus Influenza 1992 Completed [facility] vers[facility] B 00:00:00 [facility] Hib-HbOC 1992 Completed [facility] 00:00:00 [facility] DTP 1992 Completed [facility] 00:00:00 [facility] Heamophilus Influenza 1992 Completed [facility] vers[facility] B 00:00:00 [facility] Hib-HbOC 1992 Completed [facility] 00:00:00 [facility] DTP 1992 Completed [facility] 00:00:00 [facility] Heamophilus Influenza 1992 Completed [facility] vers[facility] B 00:00:00 [facility] Hib-HbOC 1992 Completed [facility] 00:00:00 [facility] DTP 1992 Completed [facility] 00:00:00 [facility] Heamophilus Influenza 1992 Completed [facility] B 00:00:00 [facility] Hib-HbOC 1992 Completed [facility] 00:00:00 [facility] DTP 1992 Completed [facility] 00:00:00 [facility] Heamophilus Influenza 1992 Completed [facility] vers[facility] of B 00:00:00 [facility] Hib-HbOC 1992 Completed [facility] 00:00:00 [facility] DTP 1992 Completed [facility] 00:00:00 [facility] Heamophilus Influenza 1992 Completed [facility] vers[facility] of B 00:00:00 [facility] Hib-HbOC 1992 Completed [facility] 00:00:00 [facility] DTP 1992 Completed [facility] 00:00:00 [facility] Heamophilus Influenza 1992 Completed [facility] vers[facility] B 00:00:00 [facility] Hib-HbOC 1992 Completed [facility] of 00:00:00 [facility] DTP 1992 Completed [facility] 00:00:00 [facility] Heamophilus Influenza 1992 Completed [facility] vers[facility] B 00:00:00 [facility] Hib-HbOC 1992 Completed [facility] 00:00:00 [facility] DTP 1992 Completed [facility] 00:00:00 [facility] Heamophilus Influenza 1992 Completed [facility] vers[facility] of B 00:00:00 [facility] Hib-HbOC 1992 Completed [facility] 00:00:00 [facility] DTP 1992 Completed [facility] 00:00:00 [facility] Heamophilus Influenza 1992 Completed [facility] vers[facility] B 00:00:00 [facility] Hib-HbOC 1992 Completed [facility] 00:00:00 [facility] DTP 1992 Completed [facility] 00:00:00 [facility] Heamophilus Influenza 1992 Completed [facility] vers[facility] B 00:00:00 [facility] Hib-HbOC 1992 Completed [facility] 00:00:00 [facility] DTP 1992 Completed [facility] 00:00:00 [facility] Heamophilus Influenza 1992 Completed [facility] vers[facility] of B 00:00:00 [facility] Hib-HbOC 1992 Completed [facility] of 00:00:00 [facility] DTP 1992 Completed [facility] 00:00:00 [facility] Heamophilus Influenza 1992 Completed [facility] B 00:00:00 [facility] Hib-HbOC 1992 Completed [facility] of 00:00:00 [facility] DTP 1992 Completed [facility] 00:00:00 [facility] Heamophilus Influenza 1992 Completed [facility] vers[facility] of B 00:00:00 [facility] Hib-HbOC 1992 Completed [facility] of 00:00:00 [facility] DTP 1992 Completed [facility] of 00:00:00 [facility] Heamophilus Influenza 1992 Completed [facility] vers[facility] B 00:00:00 [facility] Hib-HbOC 1992 Completed [facility] 00:00:00 [facility] DTP 1992 Completed [facility] 00:00:00 [facility] Heamophilus Influenza 1992 Completed [facility] vers[facility] of B 00:00:00 [facility] Hib-HbOC 1992 Completed [facility] of 00:00:00 [facility] DTP 1992 Completed [facility] 00:00:00 [facility] Heamophilus Influenza 1992 Completed [facility] vers[facility] of B 00:00:00 [facility] Hib-HbOC 1992 Completed [facility] of 00:00:00 [facility] DTP 1992 Completed [facility] 00:00:00 [facility] Heamophilus Influenza 1992 Completed [facility] versity of B 00:00:00 [facility] Hib-HbOC 1992 Completed [facility] of 00:00:00 [facility] DTP 1992 Completed [facility] 00:00:00 [facility] Heamophilus Influenza 1992 Completed [facility] vers[facility] B 00:00:00 [facility] Hib-HbOC 1992 Completed [facility] of 00:00:00 [facility] DTP 1992 Completed [facility] of 00:00:00 [facility] Heamophilus Influenza 1992 Completed [facility] vers[facility] of B 00:00:00 [facility] Hib-HbOC 1992 Completed [facility] of 00:00:00 [facility] DTP 1992 Completed [facility] 00:00:00 [facility] Heamophilus Influenza 1992 Completed [facility] vers[facility] of B 00:00:00 [facility] Hib-HbOC 1992 Completed [facility] 00:00:00 [facility] DTP 1992 Completed [facility] 00:00:00 [facility] Heamophilus Influenza 1992 Completed [facility] vers[facility] of B 00:00:00 [facility] Hib-HbOC 1992 Completed [facility] 00:00:00 [facility] DTP 1992 Completed [facility] 00:00:00 [facility] Heamophilus Influenza 1992 Completed [facility] vers[facility] of B 00:00:00 [facility] Hib-HbOC 1992 Completed [facility] 00:00:00 [facility] DTP 1992 Completed [facility] 00:00:00 [facility] Heamophilus Influenza 1992 Completed [facility] vers[facility] B 00:00:00 [facility] Hib-HbOC 1992 Completed [facility] 00:00:00 [facility] DTP 1992 Completed [facility] 00:00:00 [facility] Heamophilus Influenza 1992 Completed [facility] B 00:00:00 [facility] Hib-HbOC 1992 Completed [facility] 00:00:00 [facility] Poliovirus, Live, 1992 Completed [facility] Oral, Trivalent 00:00:00 [facility] DTP 1992 Completed [facility] 00:00:00 [facility] Heamophilus Influenza 1992 Completed [facility] vers[facility] B 00:00:00 [facility] Hib-HbOC 1992 Completed [facility] 00:00:00 [facility] Poliovirus, Live, 1992 Completed [facility] Oral, Trivalent 00:00:00 [facility] DTP 1992 Completed [facility] 00:00:00 [facility] Heamophilus Influenza 1992 Completed [facility] vers[facility] B 00:00:00 [facility] Hib-HbOC 1992 Completed [facility] 00:00:00 [facility] Poliovirus, Live, 1992 Completed [facility] Oral, Trivalent 00:00:00 [facility] 1992 Completed [facility] 00:00:00 [facility] Heamophilus Influenza 1992 Completed [facility] vers[facility] B 00:00:00 [facility] Hib-HbOC 1992 Completed [facility] 00:00:00 [facility] Poliovirus, Live, 1992 Completed [facility] Oral, Trivalent 00:00:00 [facility] DT 1992 Completed [facility] 00:00:00 [facility] Heamophilus Influenza 1992 Completed [facility] vers[facility] B 00:00:00 [facility] Hib-HbOC 1992 Completed [facility] 00:00:00 [facility] Poliovirus, Live, 1992 Completed [facility] Oral, Trivalent 00:00:00 [facility] 1992 Completed [facility] 00:00:00 [facility] Heamophilus Influenza 1992 Completed [facility] vers[facility] B 00:00:00 [facility] Hib-HbOC 1992 Completed [facility] 00:00:00 [facility] Poliovirus, Live, 1992 Completed [facility] Oral, Trivalent 00:00:00 [facility] 1992 Completed [facility] 00:00:00 [facility] Heamophilus Influenza 1992 Completed [facility] vers[facility] of B 00:00:00 [facility] Hib-HbOC 1992 Completed [facility] 00:00:00 [facility] Poliovirus, Live, 1992 Completed [facility] Oral, Trivalent 00:00:00 [facility] 1992 Completed [facility] 00:00:00 [facility] Heamophilus Influenza 1992 Completed [facility] vers[facility] B 00:00:00 [facility] Hib-HbOC 1992 Completed [facility] 00:00:00 [facility] Poliovirus, Live, 1992 Completed [facility] Oral, Trivalent 00:00:00 [facility] 1992 Completed [facility] 00:00:00 [facility] Heamophilus Influenza 1992 Completed [facility] vers[facility] B 00:00:00 [facility] Hib-HbOC 1992 Completed [facility] 00:00:00 [facility] Poliovirus, Live, 1992 Completed [facility] Oral, Trivalent 00:00:00 [facility] 1992 Completed [facility] 00:00:00 [facility] Heamophilus Influenza 1992 Completed [facility] vers[facility] B 00:00:00 [facility] Hib-HbOC 1992 Completed [facility] 00:00:00 [facility] Poliovirus, Live, 1992 Completed [facility] Oral, Trivalent 00:00:00 [facility] 1992 Completed [facility] 00:00:00 [facility] Heamophilus Influenza 1992 Completed [facility] vers[facility] B 00:00:00 [facility] Hib-HbOC 1992 Completed [facility] 00:00:00 [facility] Poliovirus, Live, 1992 Completed [facility] Oral, Trivalent 00:00:00 [facility] 1992 Completed [facility] 00:00:00 [facility] Heamophilus Influenza 1992 Completed [facility] B 00:00:00 [facility] Hib-HbOC 1992 Completed [facility] 00:00:00 [facility] Poliovirus, Live, 1992 Completed [facility] Oral, Trivalent 00:00:00 [facility] 1992 Completed [facility] 00:00:00 [facility] Heamophilus Influenza 1992 Completed [facility] vers[facility] B 00:00:00 [facility] Hib-HbOC 1992 Completed [facility] 00:00:00 [facility] Poliovirus, Live, 1992 Completed [facility] Oral, Trivalent 00:00:00 [facility] 1992 Completed [facility] 00:00:00 [facility] Heamophilus Influenza 1992 Completed [facility] vers[facility] B 00:00:00 [facility] Hib-HbOC 1992 Completed [facility] 00:00:00 [facility] Poliovirus, Live, 1992 Completed [facility] Oral, Trivalent 00:00:00 [facility] 1992 Completed [facility] 00:00:00 [facility] Heamophilus Influenza 1992 Completed [facility] B 00:00:00 [facility] Hib-HbOC 1992 Completed [facility] 00:00:00 [facility] Poliovirus, Live, 1992 Completed [facility] Oral, Trivalent 00:00:00 [facility] 1992 Completed [facility] 00:00:00 [facility] Heamophilus Influenza 1992 Completed [facility] vers[facility] B 00:00:00 [facility] Hib-HbOC 1992 Completed [facility] 00:00:00 [facility] Poliovirus, Live, 1992 Completed [facility] Oral, Trivalent 00:00:00 [facility] 1992 Completed [facility] 00:00:00 [facility] Heamophilus Influenza 1992 Completed [facility] vers[facility] B 00:00:00 [facility] Hib-HbOC 1992 Completed [facility] 00:00:00 [facility] Poliovirus, Live, 1992 Completed [facility] of Oral, Trivalent 00:00:00 [facility] 1992 Completed [facility] 00:00:00 [facility] Heamophilus Influenza 1992 Completed [facility] B 00:00:00 [facility] Hib-HbOC 1992 Completed [facility] 00:00:00 [facility] Poliovirus, Live, 1992 Completed [facility] of Oral, Trivalent 00:00:00 [facility] 1992 Completed [facility] 00:00:00 [facility] Heamophilus Influenza 1992 Completed [facility] B 00:00:00 [facility] Hib-HbOC 1992 Completed [facility] 00:00:00 [facility] Poliovirus, Live, 1992 Completed [facility] of Oral, Trivalent 00:00:00 [facility] 1992 Completed [facility] 00:00:00 [facility] Heamophilus Influenza 1992 Completed [facility] B 00:00:00 [facility] Hib-HbOC 1992 Completed [facility] 00:00:00 [facility] Poliovirus, Live, 1992 Completed [facility] Oral, Trivalent 00:00:00 [facility] 1992 Completed [facility] 00:00:00 [facility] Heamophilus Influenza 1992 Completed [facility] B 00:00:00 [facility] Hib-HbOC 1992 Completed [facility] 00:00:00 [facility] Poliovirus, Live, 1992 Completed [facility] Oral, Trivalent 00:00:00 [facility] DT 1992 Completed [facility] 00:00:00 [facility] Heamophilus Influenza 1992 Completed [facility] B 00:00:00 [facility] Hib-HbOC 1992 Completed [facility] 00:00:00 [facility] Poliovirus, Live, 1992 Completed [facility] of Oral, Trivalent 00:00:00 [facility] 1992 Completed [facility] 00:00:00 [facility] Heamophilus Influenza 1992 Completed [facility] B 00:00:00 [facility] Hib-HbOC 1992 Completed [facility] 00:00:00 [facility] Poliovirus, Live, 1992 Completed [facility] Oral, Trivalent 00:00:00 [facility] 1992 Completed [facility] 00:00:00 [facility] Heamophilus Influenza 1992 Completed [facility] B 00:00:00 [facility] Hib-HbOC 1992 Completed [facility] 00:00:00 [facility] Poliovirus, Live, 1992 Completed [facility] of Oral, Trivalent 00:00:00 [facility] DT 1992 Completed [facility] 00:00:00 [facility] Heamophilus Influenza 1992 Completed [facility] B 00:00:00 [facility] Hib-HbOC 1992 Completed [facility] 00:00:00 [facility] Poliovirus, Live, 1992 Completed [facility] of Oral, Trivalent 00:00:00 [facility] 1992 Completed [facility] 00:00:00 [facility] Heamophilus Influenza 1992 Completed [facility] B 00:00:00 [facility] Hib-HbOC 1992 Completed [facility] 00:00:00 [facility] Poliovirus, Live, 1992 Completed [facility] of Oral, Trivalent 00:00:00 [facility] 1992 Completed [facility] 00:00:00 [facility] Heamophilus Influenza 1992 Completed [facility] B 00:00:00 [facility] Hib-HbOC 1992 Completed [facility] 00:00:00 [facility] Poliovirus, Live, 1992 Completed [facility] Oral, Trivalent 00:00:00 [facility] 1992 Completed [facility] 00:00:00 [facility] Heamophilus Influenza 1992 Completed [facility] B 00:00:00 [facility] Hib-HbOC 1992 Completed [facility] 00:00:00 [facility] Poliovirus, Live, 1992 Completed [facility] of Oral, Trivalent 00:00:00 [facility] 1992 Completed [facility] 00:00:00 [facility] Heamophilus Influenza 1992 Completed [facility] B 00:00:00 [facility] Hib-HbOC 1992 Completed [facility] 00:00:00 [facility] Poliovirus, Live, 1992 Completed [facility] of Oral, Trivalent 00:00:00 [facility] 1992 Completed [facility] 00:00:00 [facility] Heamophilus Influenza 1992 Completed [facility] B 00:00:00 [facility] Hib-HbOC 1992 Completed [facility] 00:00:00 [facility] Poliovirus, Live, 1992 Completed [facility] Oral, Trivalent 00:00:00 [facility] 1992 Completed [facility] 00:00:00 [facility] Heamophilus Influenza 1992 Completed [facility] B 00:00:00 [facility] Hib-HbOC 1992 Completed [facility] 00:00:00 [facility] Poliovirus, Live, 1992 Completed [facility] Oral, Trivalent 00:00:00 [facility] 1992 Completed [facility] 00:00:00 [facility] Heamophilus Influenza 1992 Completed [facility] B 00:00:00 [facility] Hib-HbOC 1992 Completed [facility] of 00:00:00 [facility] Poliovirus, Live, 1992 Completed Univers ity of Oral, Trivalent 00:00:00 [facility] 1992 Completed [facility] of 00:00:00 [facility] Heamophilus Influenza 1992 Completed Uni versity of B 00:00:00 [facility] Hib-HbOC 1992 Completed [facility] of 00:00:00 [facility] Poliovirus, Live, 1992 Completed [facility] ity of Oral, Trivalent 00:00:00 [facility] 1992 Completed [facility] 00:00:00 [facility] Heamophilus Influenza 1992 Completed Uni versity of B 00:00:00 [facility] Hib-HbOC 1992 Completed [facility] of 00:00:00 [facility] Poliovirus, Live, 1992 Completed [facility] ity of Oral, Trivalent 00:00:00 [facility] 1992 Completed [facility] 00:00:00 [facility] Heamophilus Influenza 1992 Completed Uni versity of B 00:00:00 [facility] Hib-HbOC 1992 Completed [facility] 00:00:00 [facility] Poliovirus, Live, 1992 Completed [facility] ity of Oral, Trivalent 00:00:00 [facility] 1992 Completed [facility] 00:00:00 [facility] Heamophilus Influenza 1992 Completed Uni versity of B 00:00:00 [facility] Hib-HbOC 1992 Completed [facility] of 00:00:00 [facility] Poliovirus, Live, 1992 Completed [facility] ity of Oral, Trivalent 00:00:00 [facility] 1992 Completed [facility] 00:00:00 [facility] Heamophilus Influenza 1992 Completed Uni versity of B 00:00:00 [facility] Hib-HbOC 1992 Completed [facility] of 00:00:00 [facility] Poliovirus, Live, 1992 Completed [facility] ity of Oral, Trivalent 00:00:00 [facility] 1992 Completed [facility] 00:00:00 [facility] Heamophilus Influenza 1992 Completed Uni versity of B 00:00:00 [facility] Hib-HbOC 1992 Completed [facility] of 00:00:00 [facility] Poliovirus, Live, 1992 Completed [facility] ity of Oral, Trivalent 00:00:00 [facility] DT 1992 Completed [facility] of 00:00:00 [facility] Heamophilus Influenza 1992 Completed Uni versity of B 00:00:00 [facility] Hib-HbOC 1992 Completed [facility] of 00:00:00 [facility] Poliovirus, Live, 1992 Completed [facility] ity of Oral, Trivalent 00:00:00 [facility] 1992 Completed [facility] 00:00:00 [facility] Heamophilus Influenza 1992 Completed Uni versity of B 00:00:00 [facility] Hib-HbOC 1992 Completed [facility] 00:00:00 [facility] Poliovirus, Live, 1992 Completed [facility]y of Oral, Trivalent 00:00:00 [facility] DT 1992 Completed [facility] 00:00:00 [facility] Heamophilus Influenza 1992 Completed Uni versity of B 00:00:00 [facility] Hib-HbOC 1992 Completed [facility] of 00:00:00 [facility] Poliovirus, Live, 1992 Completed Univers ity of Oral, Trivalent 00:00:00 [facility] 1992 Completed [facility] 00:00:00 [facility] Heamophilus Influenza 1992 Completed Uni versity of B 00:00:00 [facility] Hib-HbOC 1992 Completed [facility] 00:00:00 [facility] Poliovirus, Live, 1992 Completed [facility] ity [facility] Oral, Trivalent 00:00:00 [facility] DTP 1992 Completed [facility] 00:00:00 [facility] Heamophilus Influenza 1992 Completed Uni versity of B 00:00:00 [facility] Hib-HbOC 1992 Completed [facility] of 00:00:00 [facility] Poliovirus, Live, 1992 Completed [facility] Oral, Trivalent 00:00:00 [facility] DTP 1992 Completed [facility] 00:00:00 [facility] Heamophilus Influenza 1992 Completed Uni versity of B 00:00:00 [facility] Hib-HbOC 1992 Completed [facility] of 00:00:00 [facility] Poliovirus, Live, 1992 Completed Univers ity of Oral, Trivalent 00:00:00 [facility] DTP 1992 Completed [facility] of 00:00:00 [facility] Heamophilus Influenza 1992 Completed Uni versity of B 00:00:00 [facility] Hib-HbOC 1992 Completed [facility] of 00:00:00 [facility] Poliovirus, Live, 1992 Completed Univers ity of Oral, Trivalent 00:00:00 [facility] DTP 1992 Completed [facility] of 00:00:00 [facility] Heamophilus Influenza 1992 Completed Uni versity of B 00:00:00 [facility] Hib-HbOC 1992 Completed [facility] of 00:00:00 [facility] Poliovirus, Live, 1992 Completed [facility] of Oral, Trivalent 00:00:00 [facility] DTP 1992 Completed [facility] 00:00:00 [facility] Heamophilus Influenza 1992 Completed Uni versity of B 00:00:00 [facility] Hib-HbOC 1992 Completed [facility] of 00:00:00 [facility] Poliovirus, Live, 1992 Completed Univers ity of Oral, Trivalent 00:00:00 [facility] DTP 1992 Completed [facility] of 00:00:00 [facility] Heamophilus Influenza 1992 Completed Uni versity of B 00:00:00 [facility] Hib-HbOC 1992 Completed [facility] of 00:00:00 [facility] Poliovirus, Live, 1992 Completed [facility] ity of Oral, Trivalent 00:00:00 [facility] 1992 Completed [facility] 00:00:00 [facility] Heamophilus Influenza 1992 Completed Uni versity of B 00:00:00 [facility] Hib-HbOC 1992 Completed [facility] of 00:00:00 [facility] Poliovirus, Live, 1992 Completed [facility] ity of Oral, Trivalent 00:00:00 [facility] 1992 Completed [facility] of 00:00:00 [facility] Heamophilus Influenza 1992 Completed Uni versity of B 00:00:00 [facility] Hib-HbOC 1992 Completed [facility] of 00:00:00 [facility] Poliovirus, Live, 1992 Completed [facility] ity of Oral, Trivalent 00:00:00 [facility] 1992 Completed [facility] of 00:00:00 [facility] Heamophilus Influenza 1992 Completed Uni versity of B 00:00:00 [facility] Hib-HbOC 1992 Completed [facility] of 00:00:00 [facility] Poliovirus, Live, 1992 Completed [facility] ity of Oral, Trivalent 00:00:00 [facility] 1992 Completed [facility] of 00:00:00 [facility] Heamophilus Influenza 1992 Completed Uni versity of B 00:00:00 [facility] Hib-HbOC 1992 Completed [facility] of 00:00:00 [facility] Poliovirus, Live, 1992 Completed Univers ity of Oral, Trivalent 00:00:00 [facility] Vital Signs Vital Name Observation Time Observation Value Comments Source Systolic blood 2023-03-02 133 mm[Hg] University of pressure 17:25:00 [facility] Diastolic blood 2023-03-02 79 mm[Hg] University o f pressure 17:25:00 [facility] Heart rate 2023-03-02 86 /min University of 17:25:00 [facility] Body temperature 2023-03-02 36.67 Alisha University of 17:25:00 [facility] Respiratory rate 2023-03-02 16 /min University of 17::00 [facility] Body height 2023-03-02 160 cm University of 17:: [facility] Body weight 2023-03-02 69.627 kg University of 17::00 [facility] BMI 2023-03-02 27.19 kg/m2 University of 17:25:00 [facility] Oxygen saturation 2023-03-02 97 /min University of in Arterial blood 17:25:00 [facility] shanice by Pulse oximetry Branch Systolic blood 2023-01-21 156 mm[Hg] University of pressure 23:13:33 [facility] Diastolic blood 2023-01-21 100 mm[Hg] University o f pressure 23:13:33 [facility] Heart rate 2023-01-21 88 /min University of 23:13:33 [facility] Respiratory rate 2023-01-21 20 /min University of 23:13:33 [facility] Oxygen saturation 2023-01-21 100 /min University of in Arterial blood 23:13:33 [facility] shanice by Pulse oximetry Branch Body height 2023-01-21 160 cm University of 18:44:00 [facility] Body weight 2023-01-21 69.854 kg University of 18:44:00 [facility] BMI 2023-01-21 27.28 kg/m2 University of 18:44:00 [facility] Body temperature 2023-01-21 37.11 Alisha University of 18:43:00 [facility] Systolic blood 2023-01-15 121 mm[Hg] University of pressure 18:01:00 [facility] Diastolic blood 2023-01-15 81 mm[Hg] University o f pressure 18:01:00 [facility] Heart rate 2023-01-15 83 /min [facility] of 18:01:00 [facility] Respiratory rate 2023-01-15 16 /min University of 18:01:00 [facility] Oxygen saturation 2023-01-15 97 /min [facility] in Arterial blood 18:01:00 [place] [facility] Pulse [facility]xim[facility] Body temperature 2023-01-15 36.89 Alisha University of 14:55:07 [facility] Body weight 2023-01-15 68.04 kg University of 13:47:00 [facility] BMI 2023-01-15 26.57 kg/m2 University of 13:47:00 [facility] Systolic blood 2023-01-15 131 mm[Hg] University of pressure 10:13:00 [facility] Diastolic blood 2023-01-15 83 mm[Hg] University o f pressure 10:13:00 [facility] Heart rate 2023-01-15 104 /min University of 10:13:00 [facility] Body temperature 2023-01-15 36.94 Alisha University of 10:13:00 [facility] Respiratory rate 2023-01-15 21 /min University of 10:13:00 [facility] Body height 2023-01-15 160 cm University of 10:13:00 [facility] Body weight 2023-01-15 68.04 kg University of 10:13:00 [facility] BMI 2023-01-15 26.57 kg/m2 University of 10:13:00 [facility] Oxygen saturation 2023-01-15 100 /min University of in Arterial blood 10:13:00 [facility] by Pulse oximetry Branch Systolic blood 2022-12-31 128 mm[Hg] University of pressure 05:09:00 [facility] Diastolic blood 2022-12-31 79 mm[Hg] University o f pressure 05:09:00 [facility] Heart rate 2022-12-31 71 /min University of 05:09:00 [facility] Body temperature 2022-12-31 36.78 Alisha University of 05:09:00 [facility] Respiratory rate 2022-12-31 16 /min University of 05:09:00 [facility] Body height 2022-12-31 160 cm University of 05:09:00 [facility] Body weight 2022-12-31 67.586 kg University of 05:09:00 [facility] BMI 2022-12-31 26.39 kg/m2 University of 05:09:00 [facility] Oxygen saturation 2022-12-31 100 /min [facility] of in Arterial blood 05:09:00 [place] [facility] Pulse oxim[facility] Systolic blood 2022-12-22 132 mm[Hg] [facility] of pressure 13:18:00 [facility] Diastolic blood 2022-12-22 92 mm[Hg] University o f pressure 13:18:00 [facility] Heart rate 2022-12-22 78 /min [facility] of 13:18:00 [facility] Respiratory rate 2022-12-22 18 /min University of 13:18:00 [facility] Body height 2022-12-22 160 cm University of 13:18:00 [facility] Body weight 2022-12-22 69.4 kg University of 13:18:00 [facility] BMI 2022-12-22 27.10 kg/m2 University of 13:18:00 [facility] Systolic blood 2022-12-19 102 mm[Hg] University of pressure 10:00:00 [facility] Diastolic blood 2022-12-19 60 mm[Hg] University o f pressure 10:00:00 [facility] Heart rate 2022-12-19 85 /min University of 10:00:00 [facility] Respiratory rate 2022-12-19 13 /min [facility] of 10:00:00 [facility] Oxygen saturation 2022-12-19 96 /min [facility] of in Arterial blood 10:00:00 [facility] shanice by Pulse oximetry Branch Body temperature 2022-12-19 36.28 Alisha University of 07:30:00 [facility] Body height 2022-12-19 160 cm University of 07:30:00 [facility] Body weight 2022-12-19 67.132 kg University of 07:30:00 [facility] BMI 2022-12-19 26.22 kg/m2 University of 07:30:00 [facility] Systolic blood 2022-12-15 125 mm[Hg] University of pressure 15:48:00 [facility] Diastolic blood 2022-12-15 77 mm[Hg] University o f pressure 15:48:00 [facility] Heart rate 2022-12-15 75 /min University of 15:48:00 [facility] Body height 2022-12-15 160 cm University of 15:48:00 [facility] Body weight 2022-12-15 68.448 kg University of 15:48:00 [facility] BMI 2022-12-15 26.73 kg/m2 University of 15:48:00 [facility] Oxygen saturation 2022-12-15 98 /min [facility] in Arterial blood 15:48:00 [place] [facility] Systolic blood 2022-12-14 132 mm[Hg] [facility] pressure 08:04:00 [facility] Diastolic blood 2022-12-14 87 mm[Hg] University o f pressure 08:04:00 [facility] Heart rate 2022-12-14 83 /min [facility] of 08:04:00 [facility] Body temperature 2022-12-14 36.67 Alisha University of 08:04:00 [facility] Respiratory rate 2022-12-14 20 /min University of 08:04:00 [facility] Body height 2022-12-14 160 cm University of 08:04:00 [facility] Body weight 2022-12-14 67.132 kg University of 08:04:00 [facility] BMI 2022-12-14 26.22 kg/m2 University of 08:04:00 [facility] Oxygen saturation 2022-12-14 97 /min [facility] in Arterial blood 08:04:00 [facility] by Pulse oximetry Branch Systolic blood 2022-11-03 143 mm[Hg] [facility] of pressure 17:45:00 [facility] Diastolic blood 2022-11-03 89 mm[Hg] University o f pressure 17:45:00 [facility] Heart rate 2022-11-03 89 /min University of 17:45:00 [facility] Respiratory rate 2022-11-03 16 /min University of 17:45:00 [facility] Oxygen saturation 2022-11-03 99 /min [facility] in Arterial blood 17:45:00 [facility] by Pulse oximetry Branch Body temperature 2022-11-03 36.61 Alisha University of 14:13:00 [facility] Body height 2022-11-03 160 cm University of 14:13:00 [facility] Body weight 2022-11-03 68.04 kg University of 14:13:00 [facility] BMI 2022-11-03 26.57 kg/m2 University of 14:13:00 [facility] Systolic blood 2022-10-28 115 mm[Hg] [facility] of pressure 21:02:00 [facility] Diastolic blood 2022-10-28 69 mm[Hg] University o f pressure 21:02:00 [facility] Heart rate 2022-10-28 93 /min University of 21:02:00 [facility] Body temperature 2022-10-28 36.89 Alisha University of 21:02:00 [facility] Body height 2022-10-28 160 cm University of 21:02:00 [facility] Body weight 2022-10-28 70.308 kg University of 21:02:00 [facility] BMI 2022-10-28 27.46 kg/m2 University of 21:02:00 [facility] Oxygen saturation 2022-10-28 100 /min [facility] in Arterial blood 21:02:00 [place] [facility] Systolic blood 2022-10-13 133 mm[Hg] [facility] of pressure 07:58:00 [facility] Diastolic blood 2022-10-13 72 mm[Hg] University o f pressure 07:58:00 [facility] Heart rate 2022-10-13 109 /min University of 07:58:00 [facility] Body temperature 2022-10-13 36.78 Alisha University of 07:58:00 [facility] Respiratory rate 2022-10-13 16 /min University of 07:58:00 [facility] Body weight 2022-10-13 67.132 kg University of 07:58:00 [facility] BMI 2022-10-13 26.22 kg/m2 University of 07:58:00 [facility] Oxygen saturation 2022-10-13 99 /min [facility] in Arterial blood 07:58:00 [place] [facility] P[facility] Systolic blood 2022-10-10 120 mm[Hg] [facility] pressure 00:44:00 [facility] Diastolic blood 2022-10-10 82 mm[Hg] University o f pressure 00:44:00 [facility] Heart rate 2022-10-10 110 /min University of 00:44:00 [facility] Body temperature 2022-10-10 36.33 Alisha University of 00:44:00 [facility] Respiratory rate 2022-10-10 18 /min University of 00:44:00 [facility] Body height 2022-10-10 160 cm University of 00:44:00 [facility] Body weight 2022-10-10 67.132 kg University of 00:44:00 [facility] BMI 2022-10-10 26.22 kg/m2 University of 00:44:00 [facility] Oxygen saturation 2022-10-10 99 /min [facility] in Arterial blood 00:44:00 [place] [facility] P[facility] Systolic blood 2022-09-10 165 mm[Hg] [facility] pressure 00:13:00 [facility] Diastolic blood 2022-09-10 99 mm[Hg] University o f pressure 00:13:00 [facility] Heart rate 2022-09-10 125 /min University of 00:13:00 [facility] Body temperature 2022-09-10 36.61 Alisha University of 00:13:00 [facility] Respiratory rate 2022-09-10 20 /min University 00:13:00 [facility] Body weight 2022-09-10 65.772 kg University 00:13:00 [facility] BMI 2022-09-10 25.69 kg/m2 University 00:13:00 [facility] Oxygen saturation 2022-09-10 99 /min [facility] of in Arterial blood 00:13:00 [place] [facility] P[facility] Systolic blood 2022-08-18 134 mm[Hg] [facility] of pressure 22:36:00 [facility] Diastolic blood 2022-08-18 86 mm[Hg] University o f pressure 22:36:00 [facility] Heart rate 2022-08-18 100 /min University 22:36:00 [facility] Body temperature 2022-08-18 37.11 Alisha University of 22:36:00 [facility] Respiratory rate 2022-08-18 20 /min University 22:36:00 [facility] Body height 2022-08-18 160 cm University of 22:36:00 [facility] Body weight 2022-08-18 67.132 kg University of 22:36:00 [facility] BMI 2022-08-18 26.22 kg/m2 University of 22:36:00 [facility] Oxygen saturation 2022-08-18 100 /min [facility] in Arterial blood 22:36:00 [place] [facility] Systolic blood 2022-01-20 123 mm[Hg] [facility] pressure 18:11:00 Hospital Diastolic blood 2022-01-20 85 mm[Hg] [facility] pressure 18:11:00 Hospital Heart rate 2022-01-20 88 /min [facility] 18:11:00 [facility] Body temperature 2022-01-20 36.28 Alisha [facility] 18:11:00 Hospital Respiratory rate 2022-01-20 20 /min [facility] 18:11:00 [facility] Body height 2022-01-20 160 cm [facility] 18:11:00 [facility] Body weight 2022-01-20 66.225 kg [facility] 18:11:00 [facility] BMI 2022-01-20 25.86 kg/m2 [facility] 18:11:00 Hospital Oxygen saturation 2022-01-20 99 /min [facility] in Arterial blood 18:11:00 [facility] by Pulse [...] BP Systolic 2019-06-28 130 mm[Hg] Location: [facility]; [facility] 16:14:00 Position: Sitting BP Diastolic 2019-06-28 82 mm[Hg] Location: [facility]; [facility] 16:14:00 Position: Sitting Height 2019-06-28 67 [...] ABDOMEN PELVIS W 2023-01-21 21:07:22 Evangelina Abad [facility] POCT TEST 2023-01-21 19:34:00 Gutierrez Moncada [facility] LIPASE 2023-01-21 19:32:00 Gutierrez [facility] TROPONIN I 2023-01-21 19:32:00 Evangelina Abad [place] [facility] COMP. METABOLIC PANEL 2023-01-21 19:32:00 Gutierrez Moncada [facility] ([id number]) [facility] CBC WITH DIFF 2023-01-21 19:32:00 [facility]ierrez [facility] URINALYSIS 2023-01-21 19:32:00 [facility]rez [facility] CONSENT/REFUSAL FOR 2023-01-21 18:36:13 Doctor Unassigned, No [facility] [place] [facility] Name Medical Branch LIPASE 2023-01-15 14:47:00 Luiza Lal [facility] COMP. METABOLIC PANEL 2023-01-15 14:47:00 Luiza Lal [facility] ([id number]) Medical Branch CBC WITH DIFF 2023-01-15 14:47:00 Luiza Lal [facility] Branch CONSENT/REFUSAL FOR 2023-01-15 13:41:26 Doctor Unassigned, No [facility] [place] [facility] Name Medical Branch CONSENT/REFUSAL FOR 2023-01-15 10:06:16 Doctor Unassigned, No [facility] [place] [facility] Name Medical Branch EXTERNAL PROVIDER 2023-01-07 05:01:00 Doctor Unassigned, No [facility] ersity [facility] RECORDS Name Medical Branch EXTERNAL PROVIDER 2023-01-04 05:01:00 Doctor Unassigned, No Univ ersity [facility] RECORDS Name Medical Branch CONSENT/REFUSAL FOR 2022-12-31 05:04:15 Doctor Unassigned, No [facility] [place] [facility] Name [facility] CT ANGIOGRAPHY 2022-12-30 17:15:00 Amrit Ma [facility] CORONARIES WITHOUT Medical Bran h CARDIAC CALCIUM SCORING HB CREATININE 2022-12-30 16:24:00 Amrit Ma [facility] SERUM/BLOOD FOR IMAGING Medical Branch CONSENT/REFUSAL FOR 2022-12-30 15:17:01 Doctor Unassigned, No [facility] [place] [facility] Name Medical Branch EXTERNAL PROVIDER 2022-12-29 05:01:00 Doctor Unassigned, No [facility] AUTHORIZATION TO RELEASE 2022-12-21 05:01:00 Doctor Unassigned, No [facility] PHI TO [facility] Name Medical Branch CT ANGIOGRAM CHEST 2022-12-19 09:28:16 Iza Medina [facility] TROPONIN I 2022-12-19 08:40:00 Iza Medina [facility] Medical [place] D-DIMER 2022-12-19 08:40:00 Iza Medina [facility] CONSENT/REFUSAL FOR 2022-12-19 07:30:10 Doctor Unassigned, No [facility] D-DIMER 2022-12-14 10:47:00 Iza Medina [facility] TROPONIN I 2022-12-14 10:16:00 Iza Medina [facility] LIPASE 2022-12-14 08:31:00 Iza Medina [facility] TROPONIN I 2022-12-14 08:31:00 Jagruti Tncesar Avila [facility] COMP. METABOLIC PANEL 2022-12-14 08:31:00 Iza Medina [facility] ([id number]) [facility] CBC WITH DIFF 2022-12-14 08:31:00 Iza Medina [facility] THYROID STIMULATING 2022-12-14 08:31:00 Amrit Ma [facility] HORMONE [facility] NOTICE OF PRIVACY 2022-12-14 07:50:02 Doctor Unassigned, No [facility] PRACTICES [facility] CONSENT/REFUSAL FOR 2022-12-14 07:49:31 Doctor Unassigned, No [facility] URINALYSIS 2022-11-03 15:27:00 Claudia Dotson [facility] URINE DRUG (IMMUNOASSAY) 2022-11-03 15:27:00 Claudia Dotson [facility] SCREEN W/O REFLEX TEST, SERUM 2022-11-03 14:38:00 Claudia Dotson [facility] COMP. METABOLIC PANEL 2022-11-03 14:38:00 Claudia Dotson [facility] ([id number]) [facility] CBC WITH DIFF 2022-11-03 14:38:00 Claudia Dotson [facility] D-DIMER 2022-11-03 14:38:00 Claudia Dotson [facility] CONSENT/REFUSAL FOR 2022-11-03 14:04:36 Doctor Unassigned, No [...] Branch MRI LUMBAR SPINE WO 2022-10-07 00:35:[address] [facility] CERVICAL SPINE WO 2022-10-07 00:22:00 [facility] CONTRAST CONSENT/REFUSAL FOR 2022-09-10 00:07:30 Doctor Unassigned, No [facility] [place] [facility] Name Medical Branch CONSENT/REFUSAL FOR 2022-08-18 22:20:24 Doctor Unassigned, No [facility] [place] [facility] Name Medical Branch CT SPINE EXTERNAL STUDY 2021-11-28 20:02:[address] [facility] [address] SPINE EXTERNAL STUDY 2021-11-28 19:57:[address] [facility] [address] SPINE EXTERNAL STUDY 2021-11-28 19:52:18 [facility] REFERRAL- 2021-11-21 05:01:00 Doctor Unassigned, No [facility] [place] REQUEST/RESPONSE Name Medical Branch MRI SPINE EXTERNAL STUDY 2021-10-09 18:17:21 [facility] [QL] CBC (INCLUDES 2020-02-16 00:00:00 [facility] DIFF/PLT) EMB 2020-02-14 00:00:00 [facility] Physician evelin Villanueva - Affirm VPIII 2020-02-14 00:00:00 UT P [...] [facility] Physician s Transvaginal and Pelvic Doppler 60584 History of Dental [facility] surgery History of [facility]ician s section low transverse Plan of Care Planned Activity Planned Date Details Comments Source Future Scheduled 2023-02-19 Pneumococcal Vaccine: [facility] Test 07:49:13 Pediatrics (0 to 5 Years) and At-Risk Patients (6 to 64 Years) (1 - PCV) [code = Pneumococcal Vaccine: Pediatrics (0 to 5 Years) and At-Risk Patients (6 to 64 Years) (1 - PCV)] Future Scheduled 2023-02-19 Hepatitis C screening [facility] Test 07:49:13 (procedure) [code = 678869477] Future Scheduled 2023-02-19 [facility] Test 07:49:13 malignant neoplasm of cervix (procedure) [code = 003039972] Future Scheduled 2023-02-19 COVID-19 VACCINE (3 - [facility] Test 07:49:13 Pfizer series) [code = COVID-19 VACCINE (3 - Pfizer series)] Future Scheduled 2023-02-19 INFLUENZA VACCINE [facility] Test 07:49:13 [code = INFLUENZA VACCINE] Future Scheduled 2023-02-19 Pneumococcal Vaccine: [facility] Test 07:49:13 Pediatrics (0 to 5 Years) and At-Risk Patients (6 to 64 Years) (1 - PCV) [code = Pneumococcal Vaccine: Pediatrics (0 to 5 Years) and At-Risk Patients (6 to 64 Years) (1 - PCV)] Future Scheduled 2023-02-19 Hepatitis C screening [facility] Test 07:49:13 (procedure) [code = 144473376] Future Scheduled 2023-02-19 [facility] Test 07:49:13 malignant neoplasm of cervix (procedure) [code = 277188849] Future Scheduled 2023-02-19 COVID-19 VACCINE (3 - [facility] Test 07:49:13 Pfizer series) [code = COVID-19 VACCINE (3 - Pfizer series)] Future Scheduled 2023-02-19 INFLUENZA VACCINE [facility] Test 07:49:13 [code = INFLUENZA VACCINE] Future Scheduled 2022-12-30 Pneumococcal Vaccine: [facility] Test 10:15:19 Pediatrics (0 to 5 Years) and At-Risk Patients (6 to 64 Years) (1 - PCV) [code = Pneumococcal Vaccine: Pediatrics (0 to 5 Years) and At-Risk Patients (6 to 64 Years) (1 - PCV)] Future Scheduled 2022-12-30 Hepatitis C screening [facility] Test 10:15:19 (procedure) [code = 423796350] Future Scheduled 2022-12-30 [facility] Test 10:15:19 malignant neoplasm of cervix (procedure) [code = 103239378] Future Scheduled 2022-12-30 COVID-19 VACCINE (3 - [facility] Test 10:15:19 Booster for Pfizer series) [code = COVID-19 VACCINE (3 - Booster for Pfizer series)] Future Scheduled 2022-12-30 INFLUENZA VACCINE [facility] Test 10:15:19 [code = INFLUENZA VACCINE] Future Scheduled 2022-12-30 Pneumococcal Vaccine: [facility] Test 10:15:19 Pediatrics (0 to 5 Years) and At-Risk Patients (6 to 64 Years) (1 - PCV) [code = Pneumococcal Vaccine: Pediatrics (0 to 5 Years) and At-Risk Patients (6 to 64 Years) (1 - PCV)] Future Scheduled 2022-12-30 Hepatitis C screening [facility] Test 10:15:19 (procedure) [code = 180032644] Future Scheduled 2022-12-30 [facility] Test 10:15:19 malignant neoplasm of cervix (procedure) [code = 379749317] Future Scheduled 2022-12-30 COVID-19 VACCINE (3 - [facility] Test 10:15:19 Booster for Pfizer series) [code = COVID-19 VACCINE (3 - Booster for Pfizer series)] Future Scheduled 2022-12-30 INFLUENZA VACCINE [facility] Test 10:15:19 [code = INFLUENZA VACCINE] Future Scheduled 2022-12-30 Pneumococcal Vaccine: [facility] Test 10:15:19 Pediatrics (0 to 5 Years) and At-Risk Patients (6 to 64 Years) (1 - PCV) [code = Pneumococcal Vaccine: Pediatrics (0 to 5 Years) and At-Risk Patients (6 to 64 Years) (1 - PCV)] Future Scheduled 2022-12-30 Hepatitis C screening [facility] Test 10:15:19 (procedure) [code = 066562518] Future Scheduled 2022-12-30 [facility] Test 10:15:19 malignant neoplasm of cervix (procedure) [code = 275081014] Future Scheduled 2022-12-30 COVID-19 VACCINE (3 - [facility] Test 10:15:19 Booster for Pfizer series) [code = COVID-19 VACCINE (3 - Booster for Pfizer series)] Future Scheduled 2022-12-30 INFLUENZA VACCINE [facility] Test 10:15:19 [code = INFLUENZA VACCINE] Future Scheduled 2022-08-02 Pneumococcal Vaccine: [facility] Test 11:23:36 Pediatrics (0 to 5 Years) and At-Risk Patients (6 to 64 Years) (1 - PCV) [code = Pneumococcal Vaccine: Pediatrics (0 to 5 Years) and At-Risk Patients (6 to 64 Years) (1 - PCV)] Future Scheduled 2022-08-02 Hepatitis C screening [facility] Test 11:23:36 (procedure) [code = 671917251] Future Scheduled 2022-08-02 [facility] Test 11:23:36 malignant neoplasm of cervix (procedure) [code = 387092297] Future Scheduled 2022-08-02 COVID-19 VACCINE (3 - [facility] Test 11:23:36 Booster for Pfizer series) [code = COVID-19 VACCINE (3 - Booster for Pfizer series)] Future Scheduled 2022-08-02 INFLUENZA VACCINE [facility] Test 11:23:36 [code = INFLUENZA VACCINE] Future Scheduled 2022-07-24 Pneumococcal Vaccine: [facility] Test 21:51:51 Pediatrics (0 to 5 Years) and At-Risk Patients (6 to 64 Years) (1 - PCV) [code = Pneumococcal Vaccine: Pediatrics (0 to 5 Years) and At-Risk Patients (6 to 64 Years) (1 - PCV)] Future Scheduled 2022-07-24 Hepatitis C screening [facility] Test 21:51:51 (procedure) [code = 038842337] Future Scheduled 2022-07-24 [facility] Test 21:51:51 malignant neoplasm of cervix (procedure) [code = 425307805] Future Scheduled 2022-07-24 COVID-19 VACCINE (3 - [facility] Test 21:51:51 Booster for Pfizer series) [code = COVID-19 VACCINE (3 - Booster for Pfizer series)] Future Scheduled 2022-07-24 INFLUENZA VACCINE [facility] Test 21:51:51 [code = INFLUENZA VACCINE] Future Scheduled 2022-07-15 Pneumococcal Vaccine: [facility] Test 15:03:03 Pediatrics (0 to 5 Years) and At-Risk Patients (6 to 64 Years) (1 - PCV) [code = Pneumococcal Vaccine: Pediatrics (0 to 5 Years) and At-Risk Patients (6 to 64 Years) (1 - PCV)] Future Scheduled 2022-07-15 Hepatitis C screening [facility] Test 15:03:03 (procedure) [code = 347037251] Future Scheduled 2022-07-15 [facility] Test 15:03:03 malignant neoplasm of cervix (procedure) [code = 290305874] Future Scheduled 2022-07-15 COVID-19 VACCINE (3 - [facility] Test 15:03:03 Booster for Pfizer series) [code = COVID-19 VACCINE (3 - Booster for Pfizer series)] Future Scheduled 2022-07-15 INFLUENZA VACCINE [facility] Test 15:03:03 [code = INFLUENZA VACCINE] Future Scheduled 2022 Pneumococcal Vaccine: [facility] Test 09:54:03 Pediatrics (0 to 5 Years) and At-Risk Patients (6 to 64 Years) (1 - PCV) [code = Pneumococcal Vaccine: Pediatrics (0 to 5 Years) and At-Risk Patients (6 to 64 Years) (1 - PCV)] Future Scheduled 2022 Hepatitis C screening [facility] Test 09:54:03 (procedure) [code = 885709667] Future Scheduled 2022 [facility] Test 09:54:03 malignant neoplasm of cervix (procedure) [code = 547454348] Future Scheduled 2022 COVID-19 VACCINE (3 - Me [facility] Test 09:54:03 Booster for Pfizer series) [code = COVID-19 VACCINE (3 - Booster for Pfizer series)] Future Scheduled 2022 INFLUENZA VACCINE [facility] Test 09:54:03 [code = INFLUENZA VACCINE] Encounters Start End Encounter Admission Attending Care Care Encounter Source Date/Time Date/Time Type Type Clinicians Facility Department ID 2021-07-06 Emergency [facility] [id number] Univers 13:36:32 ity [facility] 2021-07-04 Emergency [facility] [id number] Univers 11:22:30 ity [facility] 2021-07-04 Emergency [facility] [id number] [facility] HCACL MALISSA [id number] [facility] 10:52:00 [id number] [facility] 2020-12-27 Inpatient [facility] MALISSA [id number] [facility] 20:29:00 65 [facility] 2020-12-26 Inpatient CLAUDETTE Escobar, [facility] ENDO [id number] [facility] 10:00:00 Rik 01 [facility] 2020-12-22 Inpatient [facility] [id number] [facility] 23:08:15 49 [facility] 2020-08-23 Inpatient [facility] MALISSA [id number] [facility] 09:10:00 26 [facility] 2020-08-05 Inpatient [facility] MALISSA [id number] [facility] 20:55:00 [id number] [facility] 2020-02-20 Outpatient KRISTIN, [facility] [id number] M [facility] 10:04:01 LISHA 2023-03-02 2023-03-02 Urgent Adalgisa Alasanda [facility] 1.2.840.114 [id number] Univers 12:00:00 12:20:00 Care Unknown, Attending HEALTH 350.1.13.10 ity [facility] 4.2.7.2.686 Zay as BLANCA?BLEA [phone] [address] MEDICAL OFFICE [facility] 2023-03-02 2023-03-02 Outpatient R LUIS [facility] [id number] Univers 12:00:00 12:00:00 TALHA ity [facility] 2023-03-02 2023-03-02 Frandy Alas [facility] 1.2.840.114 [id number] Univers 00:00:00 00:00:00 (Out) Talha [facility] 350.1.13.10 it y [facility] 4.2.7.2.686 Zay as BLANCA?BLEA [id number] [address] OFFICE [facility] 2023-01-21 2023-01-21 Emergency X POLLO [facility] ERT [id number] Univers 13:46:00 18:49:00 [facility] 2023-01-21 2023-01-21 Emergency Pollo [facility] [id number] [id number] Univers 13:46:00 18:49:00 [facility] 350.1.13.10 it y of [facility] 4.2.7.2.686 [facility] [id number] [address] ([facility]) 2023-01-21 2023-01-21 Outpatient R KRISTY [facility] [id number] Univers 13:30:00 13:30:00 SMITHA [facility] 2023-01-15 2023-01-15 Emergency X HALI [facility] ERT [id number] Univers 08:50:00 13:10:00 [facility]23-[facility]-15 2023-01-15 Emergency Hali [facility] [id number] [id number] Univers 08:50:00 13:10:00 Luiza S [place] 350.1.13.10 i ty of [place] 4.2.7.2.686 [facility] [id number] [address] 2023-01-15 2023-01-15 Outpatient R KENZIE BADILLO [facility] [id number] Univers 09:00:00 09:00:00 ity [facility] 2023-01-15 2023-01-15 Emergency X [facility] ERT [id number] Univers 05:24:00 06:28:00 IZA ity [facility] 2023-01-15 2023-01-15 Emergency [facility] 1.2.714.271 [id number] Univers 05:24:00 06:28:00 Iza Avila [place] 350.1.13.10 ity of [place] 4.2.7.2.686 [facility] [id number] [facility] 0[address] 2023-01-12 2023-01-12 [facility] [id number] Univers 10:30:00 10:30:00 ИВАН ity [facility] 2023-01-08 2023-01-08 [facility] [id number] Univers 08:00:00 08:00:00 SENDIL ity [facility] 2023-01-07 2023-01-07 Orders Doctor HALEY 1.2.840.114 [id number] Univers 00:00:00 00:00:00 Only Unassigned, ALEM 350.1.13.10 ity of [place] [facility] 4.2.7.2.686 Zay as [id number] [facility] [address] [place] 2023-01-04 2023-01-04 Orders Doctor SUDHA 1.2.840.114 [id number] Univers 00:00:00 00:00:00 Only Unassigned, ALEM 350.1.13.10 ity of [place] [facility] 4.2.7.2.686 Zay as [id number] [facility] [address] [place] 2023-01-04 2023-01-04 Telephone [facility] 1.2.649.257 [id number] Univers 00:00:00 00:00:00 [facility] 350.1.13.10 it y of [place] [facility]CER 4.2.7.2.[address] [facility] - [phone] Med ical [facility] 419 [address] 2023-01-01 2023-01-01 Telephone Sammie [facility] 1.2.840.11 [id number] Univers 00:00:00 00:00:00 Jorge NICHOL 350.1.13.10 it y of WOMEN'S 4.2.7.2.686 [facility] [phone] [facility] 134 [address] 2022-12-31 2022-12-31 Emergency X NADEEM Jasmin [facility] ERT [id number] Univers 00:13:00 01:07:00 ity of [facility] 2022-12-31 2022-12-31 Emergency Jasmin Gregorio [facility] 1.2.840.114 [id number] Univers 00:13:00 01:07:00 Filomena GUERRERO 350.1.13.10 i ty of [place] 4.2.7.2.686 [facility] [id number] [facility] 0[address] 2022-12-31 2022-12-31 [place] [facility] 1.2.931.270 [id number] Univers 00:00:00 00:00:00 Sendgerman GUERRERO 350.1.13.10 ity of [place] 4.2.7.2.686 [facility] PROFESSIO [phone] Fl dical [facility] [address] [facility] 2022-12-30 2022-12-30 [facility] 1.2.840.114 [id number] Univers 10:38:24 23:59:00 Encounter Amrit GUERRERO 350.1.13.10 ity of [place] 4.2.7.2.686 [facility] [id number] [facility] 801 [address] 2022-12-30 2022-12-30 Outpatient R FRANCESCA [facility] [id number] Univers 10:38:24 23:59:00 SENDIL durga [facility] 2022-12-30 2022-12-30 Emergency X [facility] ERT [id number] Univers 10:21:00 10:33:00 AWILDA calixto [facility] 2022-12-30 2022-12-30 Emergency [facility] 1.2.840.114 [id number] Univers 10:21:00 10:33:00 Awilda GUERRERO 350.1.13.10 ity of [place] 4.2.7.2.686 [facility] [id number] [facility] [address] 2022-12-30 2022-12-30 Telephone Sammie [facility] 1.2.840.11 [id number] Univers 00:00:00 00:00:00 Jorge GANDARA 350.1.13.10 it y of WOMEN'S 4.2.7.2.686 [facility] [id number] [facility] 134 [address] 2022-12-29 2022-12-29 Outpatient R JORGE [facility]ANDRA [facility] B [id number] Univers 13:30:00 13:30:00 JORGE CHANDRA ity of [facility] 2022-12-29 2022-12-29 Orders Doctor SUDHA 1.2.840.114 [id number] Univers 00:00:00 00:00:00 Only Unassigned, ALEM 350.1.13.10 ity of [place] [facility] 4.2.7.2.686 Zay as [id number] [facility] [address] 2022-12-29 2022-12-[address] [place] [facility] 1.2.723.327 [id number] Univers 00:00:00 00:00:00 Petal HEALTH 350.1.13.10 it y of [place] 4.2.7.2.[address] [facility] - [id number] [facility] 419 [address] 2022-12-28 2022-12-28 Telephone [facility] 1.2.234.723 [id number] Univers 00:00:00 00:00:00 Иван HEALTH 350.1.13.10 it y of [place] 4.2.7.2.[address] [facility] - [id number] [facility] [address] 2022-12-25 2022-12-25 Patient Graciela [facility] 1.2.840.114 [id number] Univers 00:00:00 00:00:00 Secure [facility] Linda HEALTH 350.1.13.10 ity of [place] 4.2.7.2.686 Zay as BLANCA?BLEA [id number] Fl denilson [place] [address] [place] [address] MEDICAL OFFICE BUILDING 2022-12-23 2022-12-23 Telephone [facility] 1.2.840.11 [id number] Univers 00:00:00 00:00:00 Jorge GANDARA 350.1.13.10 it y of PEDIATRIC 4.2.7.2.686 [place] [facility] [id number] [facility] [address] [place] 2022-12-23 2022-12-23 Patient Vázquez [facility] 1.2.840.114 [id number] Univers 00:00:00 00:00:00 Secure Msg Norberto GUERRERO 350.1.13.10 ity of [facility] 4.2.7.2.686 [place] [id number] [facility] 134 [facility] 2022-12-22 2022-12-22 Web Search Evaluator Lab, Ang - Db [facility] 1.2.840.1 14 [id number] Univers 09:30:00 09:45:00 Visit Jorge Chandra [facility] 350.1.13.1 0 ity of [place] 4.2.7.2.686 Zay as BLANCA?BLEA [phone] [facility] [address] [place] MEDICAL OFFICE BUILDING 2022-12-22 2022-12-22 Office [facility] 1.2.840.114 [id number] Univers 08:00:00 08:53:38 Visit Jorge GANDARA 350.1.13.10 it y of [place] 4.2.7.2.686 [place] [id number] [address] 2022-12-22 2022-12-22 Outpatient R JORGE [facility]ANDRA [facility] B [id number] Univers 08:00:00 08:53:38 JORGE CHANDRA ity of [facility] 2022-12-21 2022-12-21 Orders Doctor SUDHA 1.2.840.114 [id number] Univers 00:00:00 00:00:00 Only Unassigned, ALEM 350.1.13.10 ity of [place] [facility] 4.2.7.2.686 Zay as [id number] [place] [address] [address] 2022-12-19 2022-12-19 Emergency X JAGRUTI [facility] ERT [id number] Univers 02:32:00 05:47:00 WAKILI ity [facility] 2022-12-19 2022-12-19 Emergency [facility] 1.2.258.644 [id number] Univers 02:32:00 05:47:00 Iza Avila [place] 350.1.13.10 ity of [facility] 4.2.7.2.686 [place] [id number] [facility] [address] [place] 2022-12-18 2022-12-18 Outpatient R KEZNIE BADILLO [facility] [id number] Univers 09:45:00 09:45:00 ity [facility] 2022-12-17 2022-12-17 Telephone Aby Kenzie [facility] 1.2.840.114 [id number] Univers 00:00:00 00:00:00 E HEALTH 350.1.13.10 it y of CANCER 4.2.7.2.686 [facility] [id number] [facility] [address] [place] 2022-12-15 2022-12-15 Outpatient R FRANCESCA [facility] [id number] Univers 11:00:00 11:30:30 SENDIL ity [facility] 2022-12-15 2022-12-15 [facility] 1.2.840.114 [id number] Univers 11:00:00 11:30:30 Visit Sendgerman GUERRERO 350.1.13.10 ity of [place].2.[place] [id number] Fl dicia NAL [address] [place] [address] 2022-12-15 2022-12-15 Telephone [facility] 1.2.078.683 [id number] Univers 00:00:00 00:00:00 Sendil Ismael GUERRERO 350.1.13.10 ity of [facility] 4.2.7[place]2.[place] [id number] Fl dical NAL [address] [place] [address] 2022-12-14 2022-12-14 Emergency X [facility] ERT [id number] Univers 03:03:00 07:05:00 WAKILI ity [facility] 2022-12-14 2022-12-14 Emergency [place], [facility] 1.2.506.769 [id number] Univers 03:03:00 07:05:00 Iza Avila PATSYJUAREZ 350.1.13.10 ity of [facility] 4.2.7.2.686 [facility] [id number] [address] 2022-11-03 2022-11-03 Emergency X VASUT, [facility] ERT [id number] Univers 08:15:00 12:05:00 CLAUDIA ity of [facility] 2022-11-03 2022-11-03 Emergency [facility] 1.2.760.973 [id number] Univers 08:15:00 12:05:00 Claudia GUERRERO 350.1.13.10 i ty of [place] 4.2.7.2.686 [facility] [id number] [address] 2022-10-28 2022-10-28 Outpatient R GRACIELA [facility] [id number] Univers 15:00:00 15:28:11 LINDA ity [facility] 2022-10-28 2022-10-28 Office [facility] 1.2.840.114 [id number] Univers 15:00:00 15:28:11 Visit Linda [facility] 350.1.13.10 it y of [place] 4.2.7.2.686 Zay as BLANCA?BLEA [id number] [address] MEDICAL OFFICE BUILDING 2022-10-28 2022-10-28 Orders Doctor HALEY 1.2.840.114 [id number] Univers 00:00:00 00:00:00 Only Unassigned, ALEM 350.1.13.10 ity of [place] [facility] 4.2.7.2.686 Zay as [id number] [facility] [address] [place] 2022-10-28 2022-10-28 Abstract [facility] 1.2.840.114 [id number] Univers 00:00:00 00:00:00 Linda HEALTH 350.1.13.10 it y of [place] 4.2.7.2.686 Zay as BLANCA?BLEA [id number] [address] OFFICE [facility] 2022-10-28 2022-10-28 Patient Henry [facility] 1.2.840.114 [id number] Univers 00:00:00 00:00:00 Outreach Charlotte Wei [facility] 350.1.13.10 i ty of [facility] 4.2.7.2.686 Zay as BLANCA?BLEA [id number] [address] 2022-10-28 2022-10-28 Telephone Henry [facility] [id number] Univers 00:00:00 00:00:00 Phylicia GARNERJUAREZ 350.1.13.10 i ty of [place] 4[place]2.7.2.686 [place] [facility] [phone] [address] 2022-10-13 2022-10-13 Emergency [facility] [id number] Univers 01:56:00 02:55:00 IZA ity [facility] 2022-10-13 2022-10-13 Emergency [facility] 1.2.727.366 1161 [id number] Univers 01:56:00 02:55:00 Iza GUERRERO 350.1.13.10 ity of [place] 4.2.7.2.686 [facility] [id number] [address] 2022-10-09 2022-10-09 Emergency X [facility] ERT [id number] Univers 18:46:00 19:00:00 LUIZA ity [facility] 2022-10-09 2022-10-09 Emergency [facility] 1.2.645.542 5012 33740 Univers 18:46:00 19:00:00 Luiza S PATSYJUAREZ 350.1.13.10 i ty [facility] 4.2.7.2.686 [facility] [id number] [address] 2022-10-09 2022-10-09 Orders Doctor SUDHA 1.2.840.114 [id number] Univers 00:00:00 00:00:00 Only Unassigned, ALEM 350.1.13.10 ity of [place] [facility] 4.2.7.2.686 Zay as [id number] [facility] [address] 2022-10-06 2022-10-06 [facility], 1.2.840.1 [id number] 972 [id number] Methodi 17:35:51 23:59:00 Encounter Jorge Luis 55319.1.1 997 s t 3.430.2.7 Hospit a .3.820906 l .8 2022-10-06 2022-10-06 [facility], 1.2.840.1 [id number] 095 [id number] Methodi 17:35:51 23:59:00 Encounter Jorge Luis 49159.1.1 997 s t 3.430.2.7 Hospit a .3.314419 l .8 2022-10-06 2022-10-06 [facility], 1.2.840.1 [id number] 055 [id number] Methodi 17:35:36 23:59:00 Encounter Jorge Luis 45818.1.1 999 s t 3.430.2.7 Hospit a .3.616767 l .8 2022-10-06 2022-10-06 [facility], 1.2.840.1 [id number] 533 2144931 Methodi 17:35:36 23:59:00 Encounter Jorge Luis 05924.1.1 999 s t 3.430.2.7 Hospit a .3.641117 l .8 2022-10-06 2022-10-06 Travel 1.2.840.1 1.2.440.627 4109 806288 Methodi 00:00:00 00:00:[address] 3.430.2.7 0.2.7.3.698 Ho spita .3.786045 084.8 l .8 2022-10-06 2022-10-06 Travel 1.2.840.1 1.2.382.970 9702 925434 Methodi 00:00:00 00:00:[address] 3.430.2.7 0.2.7.3.698 spita .3.537592 084.8 l .8 2022-09-09 2022-09-09 Emergency X RISHABH, [facility] ERT [id number] Univers 18:15:00 19:35:00 NATY calixto [facility] 2022-09-09 2022-09-09 Emergency [facility] 1.2.840.114 995 [id number] Univers 18:15:00 19:35:00 Naty GUERRERO 350.1.13.10 i ty [facility] 4.2.7.2.686 [facility] [id number] [address] 2022-08-18 2022-08-18 Emergency X [facility] ERT [id number] Univers 16:38:00 17:44:00 BEBO calixto [facility] 2022-08-18 2022-08-18 Emergency [facility] 1.2.334.896 6299 1453 Univers 16:38:00 17:44:00 Bebo GUERRERO 350.1.13.10 i ty [facility] 4.2.7.2.686 [facility] [id number] [address] 2022-08-07 2022-08-08 Inpatient EL Nayeli, [facility].01 [id number] [facility] 14:50:00 12:01:00 [facility]na [facility] 2022-08-03 2022-08-03 Emergency EM Ernesto, [facility] AERS [id number] [facility] 14:26:00 16:02:00 Roro 86 [facility] 2022-07-23 2022-07-23 Hospital [facility], 1.2.840.1 [id number] 155 [id number] Methodi 10:30:00 10:30:00 Encounter Jorge Luis 80915.1.1 209 s t 3.430.2.7 Hospit a .3.464886 l .8 2022-07-23 2022-07-23 Telephone Gabi, 1.2.840.1 [id number] 2100 386446 Methodi 00:00:00 00:00:[address] 3.430.2.7 Hospit a .3.708012 l .8 2022-07-23 2022-07-23 Telephone Gabi, 1.2.840.1 [id number] 2099 193534 Methodi 00:00:00 00:00:[address] 3.430.2.7 Hospit a .3.645892 l .8 2022-07-07 2022-07-07 Outpatient LONA DILL [id number] 936 Lona 10:45:00 10:45:00 ELBERT Bowdenyefri alvarez 2022-07-06 2022-07-06 Travel 1.2.840.1 1.2.597.501 2643 759626 Methodi 00:00:00 00:00:[address] 3.430.2.7 0.2.7.3.698 Ho spita .3.472619 084.8 l .8 2022-07-06 2022-07-06 Travel 1.2.840.1 1.2.477.254 0507 255423 Methodi 00:00:00 00:00:[address] 3.430.2.7 0.2.7.3.698 Ho spita .3.026919 084.8 l .8 2022-06-15 2022-06-16 [facility], 1.2.840.1 [id number] 2099 104095 Methodi 14:15:00 11:08:59 Visit Jorge Luis 70221.1.[address] 3.430.2.7 Hospit a .3.461717 l .8 2022-06-15 2022-06-16 [facility] 1.2.840.1 [id number] 2099 439647 Methodi 14:15:00 11:08:59 Visit Jorge Luis 68828.1.[address] 3.430.2.7 Hospit a .3.850552 l .8 2022-06-15 2022-06-15 [facility], 1.2.840.1 [id number] 942 0241585 Methodi 14:15:15 23:59:00 Encounter Jorge Luis 98380.1.1 971 s t 3.430.2.7 Hospit a .3.931437 l .8 2022-06-15 2022-06-15 [facility], 1.2.840.1 [id number] 270 [id number] Methodi 14:15:15 23:59:00 Encounter Jorge Luis 86133.1.1 971 s t 3.430.2.7 Hospit a .3.238876 l .8 2022-06-15 2022-06-15 [facility], 1.2.840.1 [id number] 449 3183878 Methodi 14:15:13 23:59:00 Encounter Jorge Luis 76105.1.1 963 s t 3.430.2.7 Hospit a .3.721555 l .8 2022-06-15 2022-06-15 [facility], 1.2.840.1 [id number] 218 [id number] Methodi 14:15:13 23:59:00 Encounter Jorge Luis 77930.1.1 963 s t 3.430.2.7 Hospit a .3.402977 l .8 2022-06-15 2022-06-15 [facility], 1.2.840.1 [id number] 451 [id number] Methodi 14:13:36 14:14:00 Encounter Jorge Luis 56700.1.1 680 s t 3.430.2.7 Hospit a .3.579094 l .8 2022-06-15 2022-06-15 [facility], 1.2.840.1 [id number] 553 4569009 Methodi 14:13:36 14:14:00 Encounter Jorge Luis 81294.1.1 680 s t 3.430.2.7 Hospit a .3.132695 l .8 2022-06-15 2022-06-15 [facility], 1.2.840.1 [id number] 776 1356288 Methodi 14:12:01 14:12:01 Encounter Jorge Luis 72792.1.1 418 s t 3.430.2.7 Hospit a .3.357286 l .8 2022-06-15 2022-06-15 [facility], 1.2.840.1 [id number] 099 [id number] Methodi 14:12:01 14:12:01 Encounter Jorge Luis 95943.1.1 418 s t 3.430.2.7 Hospit a .3.977725 l .8 2022-06-15 2022-06-15 [facility], 1.2.840.1 [id number] 2099 126778 Methodi 00:00:00 00:00:00 Only Jorge Luis 27594.1.[address] 3.430.2.7 Hospit a .3.806951 l .8 2022-06-15 2022-06-15 Travel 1.2.840.1 1.2.159.091 1123 436584 Methodi 00:00:00 00:00:[address] 3.430.2.7 0.2.7.3.698 Ho spita .3.337514 084.8 l .8 2022-06-15 2022-06-15 [facility], 1.2.840.1 [id number] 2100 667353 Methodi 00:00:00 00:00:00 Only Jorge Luis 72939.1.[address] 3.430.2.7 Hospit a .3.853525 l .8 2022-06-15 2022-06-15 Travel 1.2.840.1 1.2.562.221 0217 702418 Methodi 00:00:00 00:00:[address] 3.430.2.7 0.2.7.3.698 Ho spita .3.677765 084.8 l .8 2022-06-11 2022-06-11 Travel 1.2.840.1 1.2.700.149 8688 096732 Methodi 00:00:00 00:00:[address] 3.430.2.7 0.2.7.3.698 Ho spita .3.687597 084.8 l .8 2022-06-11 2022-06-11 Travel 1.2.840.1 1.2.772.720 1999 311689 Methodi 00:00:00 00:00:[address] 3.430.2.7 0.2.7.3.698 Ho spita .3.482567 084.8 l .8 2022-02-17 2022-02-17 Refill Jony, 1.2.840.1 [id number] 2099 764875 Methodi 00:00:00 00:00:[address] [place] [address] Andrea 3.430.2.7 Hospit a .3.848494 l .8 2022-01-20 2022-01-20 Office Jony 1.2.840.1 [id number] 2099 023429 Methodi 13:00:00 13:57:49 Visit [place] 75354.1.[address] Andrea 3.430.2.7 Hospit a .3.543571 l .8 2022-01-20 2022-01-20 Telephone GEORGIE Kelley 1.2.840.114 9 [id number] Univers 00:00:00 00:00:00 [facility].1.13.10 [facility] rey SÁNCHEZ 4.2.7.2.[address] [facility] 105.6720991 [facility] AND [address] [facility] 2022-01-20 2022-01-20 Travel 1.2.840.1 1.2.487.163 4595 354490 Methodi 00:00:00 00:00:[address] 3.430.2.7 0.2.7.3.698 Ho spita .3.192125 084.8 l .8 2022-01-19 2022-01-19 Telephone GEORGIE Borges 1.2.840.114 93 392370 Univers 00:00:00 00:00:00 Jessi MULTISPEC 350.1.13.10 ity of Andrea [place] 4.2.7.2.[address] [facility] [phone] [facility] AND [place] [address] [facility]AB[facility]ES CLIN[facility] 2021-11-21 2021-11-21 Orders Doctor SUDHA 1.2.840.114 [id number] Univers 00:00:00 00:00:00 Only Unassigned, ALEM 350.1.13.10 ity of [facility] 4.2.7.2.686 [facility] [id number] [facility] [address] 2021-11-17 2021-11-18 Emergency X [facility] ERT [id number] Univers 19:45:00 00:44:00 DONTA ity [facility] 2021-11-17 2021-11-18 Emergency [facility] 1.2.748.241 2929 8574 Univers 19:45:00 00:44:00 Donta GUERRERO 350.1.13.10 i ty of [place] 4.2.7.2.686 [facility] [id number] [place] [address] [place] 2021-11-16 2021-11-16 Emergency X [facility] ERT [id number] 86 Univers 20:28:00 21:58:00 IZA ity [facility] 2021-11-16 2021-11-16 Emergency [facility] 1.2.391.344 7944 5340 Univers 20:28:00 21:58:00 [facility] Evelin GUERRERO 350.1.13.10 ity [facility] 4.2.7.2.686 [facility] [id number] [place] [address] Branch 2021-10-02 2021-10-02 Emergency EM Nwoye, HCACL MALISSA [id number] [facility] 16:59:00 20:32:00 Hung [id number] Cl [facility] 2021-10-02 2021-10-02 Emergency EM EDDOC, HCACL HCACL [id number] [facility] 16:59:00 20:32:00 GENERIC 76 [facility] 2021-10-01 2021-10-01 Preston Shirley2.840.1 [id number] 2100 393475 Methodi 00:00:00 00:00:[address] Andrea 3.430.2.7 Hospit a .3.295781 l .8 2021-09-30 2021-09-30 Emergency X [facility] ERT [id number] Univers 13:31:00 16:34:00 AWILDA [facility] 2021-09-30 2021-09-30 Emergency [facility] 1.2.840.114 90 [id number] Univers 13:31:00 16:34:00 Awilda GUERRERO 350.1.13.10 ity [facility] 4.2.7.2.686 [facility] [id number] [address] 2021-08-14 2021-08-14 Refill Nenita, 1.2.840.1 [id number] 21 [id number] Methodi 00:00:00 00:00:[address] 3.430.2.7 Hospit a .3.378844 l .8 2021-08-12 2021-08-12 Refill Nenita, 1.2.840.1 [id number] 21 [id number] Methodi 00:00:00 00:00:[address] 3.430.2.7 Hospit a .3.157986 l .8 2021-07-23 2021-07-23 Emergency X [facility] ERT [id number] 08 Univers 16:14:00 17:06:00 ity [facility] 2021-07-23 2021-07-23 Emergency [facility] 1.2.231.241 0517 5383 Univers 16:14:00 17:06:00 ISH 350.1.13.10 i ty [facility] 4.2.7.2.686 [facility] [id number] [address] 2021-07-23 2021-07-23 Emergency EM White, HCACL AERS [id number] [facility] 13:58:00 14:24:00 Burak [id number] [facility] 2021-07-23 2021-07-23 Emergency EM Sanket, [place] [facility] [id number] [facility] 13:58:00 14:24:00 Burak Calle [facility] 2021-07-10 2021-07-10 Telemedici Jony, 1.2.840.1 [id number] 2 [id number] Methodi 08:30:00 09:02:51 [address] [place] 97392.1.[address] Andrea 3.430.2.7 Hospit a .3.472417 l .8 2021-07-09 2021-07-09 Travel 1.2.840.1 1.2.364.378 2179 075590 Methodi 00:00:00 00:00:[address] 3.430.2.7 0.2.7.3.698 Ho spita .3.224325 084.8 l .8 2021-06-13 2021-06-13 Outpatient [facility] [address] [place] 00:00:00 00:00:00 JESSI 976 Method i 2021-04-17 2021-04-17 Emergency E LOLITA W[facility]ERMAN [facility] 7515 16:40:00 19:42:00 [facility] 2021-03-30 2021-03-30 Emergency E SATURNINO [facility] 7514 MHBL 00:46:00 06:26:00 KURT 2021-01-15 2021-01-15 Outpatient Luz, [place] OUTD G81 [id number] [facility] 08:00:00 08:00:00 Rik [id number] [facility] 2021-01-09 2021-01-09 Emergency E LOLITA [facility]ER[facility] 7513 12:29:00 16:41:00 [facility] 2020-12-26 2020-12-26 Emergency [facility] 064 [id number] [address] [place] 00:00:00 00:00:00 039 Method i 2020-12-21 2020-12-22 Emergency Jagruti, [facility] 1.2.336.561 4005 7932 22:42:00 02:02:00 Iza Avila Ish 350.1.13.10 [place] 4.2.7.2.686 [place] [id number] 08 2020-12-21 2020-12-22 Emergency [facility] 1.2.971.903 2641 7932 Univers 22:42:00 02:02:00 Iza Avila Ish 350.1.13.10 ity of [place] 4.2.7.2.686 [facility] [id number] [address] 2020-12-21 2020-12-21 Orders Doctor SUDHA 1.2.840.114 [id number] 30 00:00:00 00:00:00 Only Unassigned, ALEM 350.1.13.10 [place] [facility] 4.2.7.2.68 [id number] 009 2020-12-21 2020-12-21 Orders Doctor HALEY 1.2.840.114 [id number] 30 Univers 00:00:00 00:00:00 Only Unassigned, ALEM 350.1.13.10 ity of Sunshine [facility] 4.2.7.2.686 [facility] [id number] [address] 2020-08-15 2020-08-19 Inpatient [facility] [id number] [facility] 14:57:00 06:49:15 39 [facility] 2020-08-15 2020-08-15 Emergency [facility] 1.2.786.786 0997 8387 03:26:00 06:17:00 Donta Guerrero 350.1.13.10 [place] 4.2.7.2.686 [place] [id number] [facility] 2020-08-15 2020-08-15 Emergency [facility] 1.2.914.210 3271 8387 Univers 03:26:00 06:17:00 Donta Guerrero 350.1.13.10 i ty of [place] 4.2.7.2.686 [facility] [id number] [address] 2020-08-15 2020-08-15 Emergency X [facility] ERT [id number] Univers 03:26:00 06:17:00 DONTA anthonyy [facility] 2020-04-13 2020-04-13 Emergency Elisa, [facility] 1.2.840.114 77 [id number] [facility] 19:38:00 23:40:00 Awilda Guerrero 350.1.13.10 ity of [place] 4.2.7.2.686 [facility] [id number] [address] 2020-04-13 2020-04-13 Emergency Elisa, [facility] 1.2.840.114 77 [id number] 19:38:00 23:40:00 Awilda Guerrero 350.1.13.10 [place] 4.2.7.2.686 [place] [id number] [facility] 2020-04-13 2020-04-13 Orders Doctor HALEY 1.2.840.114 [id number] Univers 00:00:00 00:00:00 Only Unassigned, ALEM 350.1.13.10 ity of [place] 4.2.7.2.686 Zay as [id number] [address] 2020-04-13 2020-04-13 Orders Doctor HALEY 1.2.840.114 [id number] 77 00:00:00 00:00:00 Only Unassigned, ALEM 350.1.13.10 [facility] 4.2.7.2.686 [id number] [facility] 2020-04-10 2020-04-10 Emergency [facility] 1.2.846.549 0164 5068 [facility] 15:39:00 19:05:00 Bebo Guerrero 350.1.13.10 i ty of [place] 4.2.7.2.686 [facility] [id number] [address] 2020-04-10 2020-04-10 Emergency Pope, [facility] 1.2.745.210 4749 5068 15:39:00 19:05:00 Bebo Guerrero 350.1.13.10 [place] 4.2.7.2.686 [place] [id number] [facility] 2020-04-10 2020-04-10 Orders Doctor HALEY 1.2.840.114 [id number] 10 Univers 00:00:00 00:00:00 Only Unassigned, ALEM 350.1.13.10 ity of [facility] 4.2.7.2.686 Zay as [id number] [facility] [address] 2020-04-10 2020-04-10 Orders Doctor SUDHA 1.2.840.114 [id number] 10 00:00:00 00:00:00 Only Unassigned, ALEM 350.1.13.10 [facility] 4.2.7.2.686 [id number] 009 2020-03-11 2020-03-11 Dusty FOSTER [facility] Obstetrics 677 99348 [place] 10:00:00 10:00:00 t; Gayatri HUSAIN and Quynh FOSTER Gynecology rubén HUSAIN M.D. [facility] 2020-02-28 2020-02-28 [facility] [id number] [place] 08:30:00 08:30:00 t; Gayatri HUSAIN ans ASHA, M.D. 2020-02-23 2020-02-23 [facility] [id number] [place] 11:00:00 11:00:00 t; Gayatri HUSAIN ans ASHA, M.D. 2020-02-16 2020-02-16 Dusty MARTE [facility] Obstetrics 673 82255 [place] 14:15:00 14:15:00 t; Yue ROCHA i, M.D. Gynecology [facility] Dinah ROCHA M.D. Clinic 2020-02-15 2020-02-15 Emergency E AMELIE, MHSE MHSE 7510 20:06:00 21:19:00 [facility] 2020-02-14 2020-02-14 Dusty MATAMOROS [facility] Obstetrics 6679 [id number] [place] 09:00:00 09:00:00 t; SAMIR MATAMOROS and Phy sici BETHANY, M.D. Gynecology rubén [place] [facility] 2020-01-31 2020-01-31 Dusty AGRAWAL [facility] Obstetrics 667 [id number] [place] 08:30:00 08:30:00 t; uYe WATKINS i, D.O. Gynecology [facility] Dinah WATKINS D.OMell Clinic 2019-12-20 2019-12-20 Dusty GOSS [facility] Orthopedics 65 [id number] [place] 09:30:00 09:30:00 t; mayo CID M.D. Sports ans ASHTON, Medicine M.D. [facility] 2019-12-20 2019-12-20 Outpatient Raju_P MMG MMG [id number] 020 [place] 04:51:00 04:51:00 0415 [facility] 2019-12-18 2019-12-18 Emergency E TABBY, MHSE MHSE 7500 MH 20:54:00 21:40:00 DEBBIE [facility] 2019-10-11 2019-10-12 Emergency X QIU, [facility] ERT [id number] Univers 21:52:36 00:17:00 DONTA calixto [facility] 2019-10-11 2019-10-12 Emergency [facility] 1.2.048.147 5188 3555 Univers 21:52:36 00:17:00 Donta Guerrero 350.1.13.10 i ty [facility] 4.2.7.2.686 [facility] [id number] [facility] [address] 2019-10-11 2019-10-12 Emergency [facility] 1.2.563.732 4208 3555 21:52:36 00:17:00 Donta Guerrero 350.1.13.10 [place] 4.2.7.2.686 [place] [id number] [facility] 2019-10-11 2019-10-11 Orders Doctor SUDHA 1.2.840.114 [id number] Univers 00:00:00 00:00:00 Only Unassigned, ALEM 350.1.13.10 [facility] 4.2.7.2.686 [facility] [id number] [place] [address] [address] 2019-10-11 2019-10-11 Orders Doctor SUDHA 1.2.840.114 [id number] 54 00:00:00 00:00:00 Only Unassigned, ALEM 350.1.13.10 [facility] 4.2.7.2.686 [id number] 009 2019-06-28 2019-06-28 AppointMARIBEL Rodgers Obstetrics 580 06665 [place] 16:00:00 16:00:00 t; Jackie CAVANAUGH. and Ph ysici GRUBBS, Gynecology Dinah Medina M.D. [facility] 2019-05-12 2019-05-12 Nurse Visit, [facility] Nurse [facility] 1.2 .840.114 [id number] Univers 10:44:42 12:05:57 Visit ePrri Pérez SHAVING MACHINE OPERATOR 350.1.13.10 ity of REGIONAL 4.2.7.2.686 Zay as MATERNAL [id number] Med ical & CHILD [address] [place] [address] 2019-05-12 2019-05-12 Nurse Visit, [facility] 1.2.840.114 [id number] 10:44:42 12:05:57 Visit [facility] SHAVING MACHINE OPERATOR 350.1.13.10 Nurse [facility] 4.2.7.2.686 MATERNAL [id number] & CHILD [address] [place] [address] 2019-05-10 2019-05-10 Telephone [facility] 1.2.840.114 [id number] [facility] 00:00:00 00:00:00 Perri Olivier SHAVING MACHINE OPERATOR 350.1.13.10 it y of REGIONAL 4.2.7.2.686 Zay as MATERNAL [id number] Med ical & CHILD [address] [place] [address] 2019-05-10 2019-05-10 Telephone [facility] 1.2.840.114 [id number] 00:00:00 00:00:00 Perri Olivier SHAVING MACHINE OPERATOR 350.1.13.10 REGIONAL 4.2.7.2.686 MATERNAL [id number] & CHILD [address] [facility] 2019-04-03 2019-04-03 Patient Mcfadden, [facility] 1.2.840.114 705 [id number] [facility] 00:00:00 00:00:00 Secure Msg Ivet Y HEALTH 350.1.13.10 ity of CLINICS [place].2.[place] [phone] [address] 2019-04-03 2019-04-03 Patient Mcfadden, [facility] 1.2.840.114 705 04147 00:00:00 00:00:00 Secure Msg Ivet Y HEALTH 350.1.13.10 CLINICS 4.2.7.2.686 [id number] 113 2019-03-07 2019-03-07 Patient Doctor SUDHA 1.2.840.114 [id number] 20 Univers 00:00:00 00:00:00 Secure Msg Unassigned, ALEM 350.1.13.10 ity of [facility] 4.2.7.2.686 Zay as [id number] [address] 2019-03-07 2019-03-07 Patient Doctor SUDHA [place].2.840.114 [id number] 20 00:00:00 00:00:00 Secure Msg Unassigned, ALEM 350.1.13.10 [facility] 4.2.7.2.686 [id number] 044 2019-02-27 2019-02-27 Patient Doctor SUDHA [place]a.2.840.114 [id number] [facility] 00:00:00 00:00:00 Secure Msg Unassigned, ALEM 350.1.13.10 [facility] 4.2.7.2.686 Zay as [id number] [address] 2019-02-27 2019-02-27 Patient Doctor SUDHA Astorga.2.840.114 [id number] 00:00:00 00:00:00 Secure Msg Unassigned, ALEM 350.1.13.10 [facility] 4.2.7.2.686 [id number] 2018-10-13 2018-10-13 AppointMARIBEL Puente [facility] [id number] [place] 14:30:00 14:30:00 t; Jennifer FINK i, M.D. ans JORDAN, M.D. 2018-09-07 2018-09-21 Outpatient [facility] [id number] 15:00:00 10:19:03 2018-09-07 2018-09-07 AppointMARIBEL Rae [employer] Analyst [id number] [place] 15:00:00 15:00:00 t; BONITA KRISHNA Phys ici KANDACE, M.D. ans M.D. Results Test Description Test Time Test Comments Results Result Comments Source TROPONIN I 2023-01-21 20:27:33 Test Item Value Reference Range Interpretation Comme nts TROPONIN I (test code = 6183886307) <=0.034 ANGI (test code = ANGI) Reference [...] biotin. Lab Interpretation (test code = Normal 28879-9) [id number] 20:18:51 Test Item Value Reference Range Interpretation Comments NA (test code = 132 mmol/L 135-145 L 0585408915) K (test code = 4.1 mmol/L 3.5-5.0 8937116642) CL (test code = 98 mmol/L 98-108 9948384978) CO2 TOTAL (test code = 26 mmol/L 23-31 3689545141) AGAP (test code = 8 2-16 1475072167) BUN (test code = 12 mg/dL 7-23 0852606331) GLUCOSE (test code = 79 mg/dL 70-110 2080171928) CREATININE (test code = 0.58 mg/dL 0.50-1.04 7523359183) TOTAL BILI (test code = 0.4 mg/dL 0.1-1.9 1025371163) CALCIUM (test code = 9.0 mg/dL 8.6-10.6 5222579870) T PROTEIN (test code = 7.4 g/dL 6.3-8.2 0048379984) ALBUMIN (test code = 4.5 g/dL 3.5-5.0 3285758124) ALK PHOS (test code = 62 U/L 34-122 3518570760) ALTv (test code = 23 U/L 5-35 1742-6) AST(SGOT) (test code = 31 U/L 13-40 3271978481) eGFR (test code = 122.1 mL/min/1.73m2 6596537758) ANGI (test code = ANGI) Association of [...] tests). Lab Interpretation Abnormal (test code = 36547-9) [id number] 20:18:51 Test Item Value Reference Range Interpretation Comments LIPASE (test code = 0289839498) 186 U/L 0-220 Lab Interpretation (test code = Normal 23596-2) [facility] Rybmbfuqmfgt4912-37-47 19:39:40 Test Item Value Reference Range Interpretation Comments WBC (test code = 5.62 See_Comment [Automated 8348-2) message] The sy stem which generated this result transmitted reference range : 4.30 - 11.10 10*3/?L. The reference range was not used to interpret this result as normal/abnormal . RBC (test code = 4.24 See_Comment [Automated 864-0) message] The sy stem which generated this [...] RDW-SD (test code = 44.1 fL 39.0-49.9 79255-6) RDW-CV (test code = 13.2 % 12.0-15.5 788-0) PLT (test code = 277 See_Comment [Automated 777-3) message] The sy stem which generated this result transmitted reference range : 166 - 358 10*3/ ?L. The reference r dagoberto was not used to interpret this result as normal/abnormal . MPV (test code = 8.5 fL 9.5-12.9 L 91433-7) NRBC/100 WBC (test 0.0 See_Comment [Automat ed code = 6327565309) message] The system which generated this result transmitted reference range : 0.0 - 10.0 /100 WBCs. The refer ence range was not u sed to interpret th is result as normal/abnormal . NRBC x10^3 (test code See_Comment [Auto mated = 9124046412) message] The s ystem which generated this result transmitted reference range : 10*3/?L. The reference range was not used to interpret this result as normal/abnormal . GRAN MAT (NEUT) % 46.4 % (test code = 770-8) IMM GRAN % (test code 0.90 % = 0183355041) LYMPH % (test code = 38.6 % 736-9) MONO % (test code = 12.5 % 5905-5) EOS % (test code = 0.7 % 713-8) BASO % (test code = 0.9 % 706-2) GRAN MAT x10^3(ANC) 2.61 10*3/uL 1.88-7.09 (test code = 4601019512) IMM GRAN x10^3 (test 0.05 10*3/uL 0.00-0.06 code = 5281442105) LYMPH x10^3 (test code 2.17 10*3/uL 1.32-3.29 = 731-0) MONO x10^3 (test code 0.70 10*3/uL 0.33-0.92 = 742-7) EOS x10^3 (test code = 0.04 10*3/uL 0.03-0.39 711-2) BASO x10^3 (test code 0.05 10*3/uL 0.01-0.07 = 704-7) Lab Interpretation Abnormal (test code = 09372-0) [id number]34:00 Test Item Value Reference Range Interpretation Comments POCT PREG (test code = 1605) Negative On board controls acceptable with Yes C Line (test code = 3574) POCT PREG LOT # (test code = 3575) [id number] POCT PREG TEST DATE (test 04/13/2024 code = 3576) Lab Interpretation (test code = Normal 96827-8) [facility] (74707)2023-01-15 15:36:17 Test Item Value Reference Range Interpretation Comments NA (test code = 139 mmol/L 135-145 4414846487) K (test code = 4.7 mmol/L 3.5-5.0 3375747452) CL (test code = 103 mmol/L 98-108 0917113357) CO2 TOTAL (test code 28 mmol/L 23-31 = 7498104047) AGAP (test code = 8 2-16 9637628973) BUN (test code = 14 mg/dL 7-23 6305518961) GLUCOSE (test code = 75 mg/dL 70-110 7667576870) CREATININE (test code 0.72 mg/dL 0.50-1.04 = 2352681960) TOTAL BILI (test code 0.4 mg/dL 0.1-1.1 = 4766338935) CALCIUM (test code = 9.4 mg/dL 8.6-10.6 0439302221) T PROTEIN (test code 7.4 g/dL 6.3-8.2 = 6598663011) ALBUMIN (test code = 4.5 g/dL 3.5-5.0 9138449808) ALK PHOS (test code = 58 U/L 34-122 6592223546) ALTv (test code = 22 U/L 5-35 1742-6) AST(SGOT) (test code 24 U/L 13-40 = 2581258989) eGFR (test code = 95.1 mL/min/1.73m2 0388163866) ANIG (test code = ANGI) Association of Glomerular [...] or urine or abnormalities in imaging tests). [facility] 15:36[facility]17 Test Item Value Reference Range Interpretation Comments LIPASE (test code = 9912069046) 93 U/L 0-220 Lab Interpretation (test code = Normal 49146-4) [facility] [id number] 15:19:14 Test Item Value Reference Range Interpretation [...] RDW-SD (test code = 42.5 fL 39.0-49.9 95051-8) RDW-CV (test code = 12.9 % 12.0-15.5 788-0) PLT (test code = 317 See_Comment [Automated 777-3) message] The sy stem which generated this result transmitted reference range : 166 - 358 10*3/ ?L. The reference r dagoberto was not used to interpret this result as normal/abnormal . MPV (test code = 8.8 fL 9.5-12.9 L 43833-0) NRBC/100 WBC (test 0.0 See_Comment [Automat ed code = 5000781767) message] The system which generated this result transmitted reference range : 0.0 - 10.0 /100 WBCs. The refer ence range was not u sed to interpret th is result as normal/abnormal . NRBC x10^3 (test code See_Comment [Auto mated = 7060062094) message] The s ystem which generated this result transmitted reference range : 10*3/?L. The reference range was not used to interpret this result as normal/abnormal . GRAN MAT (NEUT) % 55.7 % (test code = 770-8) IMM GRAN % (test code 0.30 % = 9633846314) LYMPH % (test code = 34.0 % 736-9) MONO % (test code = 8.1 % 5905-5) EOS % (test code = 1.0 % 713-8) BASO % (test code = 0.9 % 706-2) GRAN MAT x10^3(ANC) 4.45 10*3/uL 1.88-7.09 (test code = 2385205237) IMM GRAN x10^3 (test 0.00-0.06 code = 6740463383) LYMPH x10^3 (test code 2.72 10*3/uL 1.32-3.29 = 731-0) MONO x10^3 (test code 0.65 10*3/uL 0.33-0.92 = 742-7) EOS x10^3 (test code = 0.08 10*3/uL 0.03-0.39 711-2) BASO x10^3 (test code 0.07 10*3/uL 0.01-0.07 = 704-7) Lab Interpretation Abnormal (test code = 20955-0) [facility] [id number] 16:38:09 Test Item Value Reference Range Interpretation Comments POCT Creatinine (test code = 0.7 mg/dL 0.5-1.8 2432393633) Lab Interpretation (test code = Normal 07143-1) [facility] STIMULATING [id number] 17:16:01 Test Item Value Reference Range Interpretation Comments TSH (test code = 3.96 See_Comment [Automated message] 7721301135) The system [employer] generated this result transmitted ref erence range: 0.45 - 4 .70 mIU/L. The refe rence range was not u sed to interpret this result as normal/abnor mal. Lab Interpretation (test Normal code = 98065-6) [facility]-[id number] 11:33:33 Test Item Value Reference Interpretation Comments Range D-DIMER (test code = See_Comment [Autom ated 4248212361) message] The system which generated this result [...] diagnosis. Lab Interpretation Normal (test code = 02736-1) [facility] [id number] 10:57:27 Test Item Value Reference Range Interpretation Comments TROPONIN I (test code = 0.012 ng/mL <=0.034 6075327466) ANGI (test code = ANGI) Reference (Normal) [...] biotin. Lab Interpretation Normal (test code = 61972-4) [facility] [id number] 09:04:18 Test Item Value Reference Range Interpretation Comments TROPONIN I (test code = 0.010 ng/mL <=0.034 2521278948) ANGI (test code = ANGI) Reference (Normal) [...] biotin. Lab Interpretation Normal (test code = 93210-5) [facility] WITH [id number] 09:03:38 Test Item Value Reference Range Interpretation Comments WBC (test code = 10.76 See_Comment [Automated 6190-2) message] The sy stem which generated this [...] (test code = 36.7 fL 39.0-49.9 L 41771-7) RDW-CV (test code = 11.6 % 12.0-15.5 L 788-0) PLT (test code = 317 See_Comment [Automated 777-3) message] The sy stem which generated this result transmitted reference range : 166 - 358 10*3/ ?L. The reference r dagoberto was not used to interpret this result as normal/abnormal . MPV (test code = 8.8 fL 9.5-12.9 L 35143-5) NRBC/100 WBC (test 0.0 See_Comment [Automat ed code = 5032755694) message] The system which generated this result transmitted reference range : 0.0 - 10.0 /100 WBCs. The refer ence range was not u sed to interpret th is result as normal/abnormal . NRBC x10^3 (test code See_Comment [Auto mated = 8874011486) message] The s ystem which generated this result transmitted reference range : 10*3/?L. The reference range was not used to interpret this result as normal/abnormal . GRAN MAT (NEUT) % 49.3 % (test code = 770-8) IMM GRAN % (test code 0.50 % = 2205789424) LYMPH % (test code = 42.6 % 736-9) MONO % (test code = 6.3 % 5905-5) EOS % (test code = 0.6 % 713-8) BASO % (test code = 0.7 % 706-2) GRAN MAT x10^3(ANC) 5.32 10*3/uL 1.88-7.09 (test code = 1673816459) IMM GRAN x10^3 (test 0.05 10*3/uL 0.00-0.06 code = 4915449617) LYMPH x10^3 (test code 4.58 10*3/uL 1.32-3.29 H = 731-0) MONO x10^3 (test code 0.68 10*3/uL 0.33-0.92 = 742-7) EOS x10^3 (test code = 0.06 10*3/uL 0.03-0.39 711-2) BASO x10^3 (test code 0.07 10*3/uL 0.01-0.07 = 704-7) Lab Interpretation Abnormal (test code = 72491-6) [facility] (85787)2022-12-14 08:52:54 Test Item Value Reference Range Interpretation Comments NA (test code = 137 mmol/L 135-145 1826136171) K (test code = 3.9 mmol/L 3.5-5.0 6573439405) CL (test code = 103 mmol/L 98-108 8072034624) CO2 TOTAL (test code 25 mmol/L 23-31 = 8680592698) AGAP (test code = 9 2-16 6697756005) BUN (test code = 14 mg/dL 7-23 2594912790) GLUCOSE (test code = 88 mg/dL 70-110 2632567635) CREATININE (test code 0.69 mg/dL 0.50-1.04 = 3890456143) TOTAL BILI (test code 0.4 mg/dL 0.1-1.1 = 0120197643) CALCIUM (test code = 9.5 mg/dL 8.6-10.6 2421305254) T PROTEIN (test code 7.8 g/dL 6.3-8.2 = 5674312835) ALBUMIN (test code = 4.9 g/dL 3.5-5.0 8547038332) ALK PHOS (test code = 59 U/L 34-122 4258957377) ALTv (test code = 19 U/L 5-35 2-6) AST(SGOT)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 6.66 Lymph # (Auto) (1.00 - 4.80 x10 3/uL) 2.54 [place] Johns # (Auto) (0.00 - 0.80 x10 3/uL) 0.45 Eos # (Auto) (0.00 - 0.45 x10 3/uL) 0.05 Baso # (Auto) (0.0 - 0.20 x10 3/uL) 0.05 Lab Statement Laboratory studies reviewed and considered in th e medical decision-making. Point of Care Testing Pulse Oximetry Pulse Ox % 100 On: Room air Interpretation Interpreted by me Pulse oximetr y normal Time 2037 Re-Evaluation [...] to ED Rx Drug Database Reviewed Ye evelin OD risk score 480, patient with numerous [...] Escobar MD: 2-3 Days at 2322 RPT #:[id number] END OF REPORT 2020-12-26 11:38:00-00:00 [id number] [facility] [address] [place] [address] PATIENT NAME: LONA MARIE ADMIT DATE: ACCOUNT NO: [id number] ROOM NO: AGE: 30 REPORT TYPE: ENDOSCOPY REPORT SEX: F ADMITTING PHYSICIAN: ATTENDING PHYSICIAN:Rik Escobar MD [facility] Gastroenterology Patient Name: Cynthia Zamorano Attending MD: Rik giron MD Procedure Date: 12/26/2020 11:38 AM 80 Date of : 06/07 Admit Type: Preadmit Age: 30 Room: Room 1 Gender: Female Note Status: Finalized Procedure: Upper GI endoscopy Pre Procedure Diagnosis: Epigastric abdominal pa in Assistants: Rik Escobar MD, Crystal Auguste (Nurse), Young Raygoza, Web Search Evaluator, ANDRIA TIMMONS, FEED PREPARATION OPERATOR Referring MD: Rik Escobar MD Anesthesia: Monitored [...] inform ed consent was obtained. Patient identification a nd proposed procedure were verified by the physici an, the nurse, the anesthesiologist, the anesthetis t and the windmill technician in the pre-procedure area in the procedure room in the endoscopy suite. Mental Status Examination: normal. Airway Examination : normal oropharyngeal airway and neck mobility. Respiratory [...] PATIENT NAME: LONA MARIE ACCOUNT #: [id number] procedure. The physical status of the patient [...] the entire examined stomach. Biopsies were taken w ith a cold forceps for histology. Estimated blood [...] Initiated On: 12/26/2020 11:38 AM PATIENT NAME: CYNTHIALONA SHANNON ACCOUNT #: [id number] Procedure Date: 12/26/2020 11:38:36 AM Provation {[id number]}.pdf ProVation FT PDF at 1240 PATIENT NAME: LONA MRAIEN ACCOUNT #: [id number] 2020-12-22 22:14:00-00:00 [facility] ([facility]) EMERGENCY PROVIDER REPORT REPORT#:[id number] REPORT STATUS: Signed DATE:12/22/20 TIME: 2213 PATIENT: LONA MARIE UNIT #: [id number] ROOM: BED: AGE: 30 SEX: F PCP PHYS: No Primary or Family P hysician SERVICE AUTHOR: Jayme Rodríguez MD * ALL edits or amendments must be made on the el [employer]/computer document * HPI-Abd Pain F Under 40 [...] needs to follow-up with her GI doctor. Patie nt states the pain that symptoms got [...] #50 TAB Prov: 08/25/20 Reported Medications Hydrocodone/Apap ([place] 10/325) 1 TAB PO Q4H PRN PAIN [...] Peripheral circulation NL Abdomen/GI Abdomen/GI Soft, Non-tender, McBurney' s non-tender, No guarding, No rebound, BS normoactive, No [...] [Embedded Image Not Available] Laboratory Tests: 12/22 2258 Chemistry Sodium (136 - 145 mmol/L) 137 [...] % (Auto) (20.5 - 51.1 %) 24.3 [place]. Johns % (Auto) (1.7 - 9.3 %) 6.4 Eos % (Auto) (0.0 - 7.0 %) 1.2 Baso % (Auto) (0 - 2.5 %) 0.7 Neut # (Auto) (1.80 - 7.70 x10 3/uL) 6.87 Lymph # (Auto) (1.00 - 4.80 x10 3/uL) 2.49 [place] Johns # (Auto) (0.00 - 0.80 x10 3/uL) 0.66 Eos # (Auto) (0.00 - 0.45 x10 3/uL) 0.12 Baso # (Auto) (0.0 - 0.20 x10 3/uL) 0.07 Urines Urine Color (YELLOW DISCRIPT) YELLOW Urine Appearance (CLEAR DISCRIPT) CLEAR Urine pH (5.0 - 9.0) 5.5 Ur Specific [place] (1.005 - 1.030) 1.025 Urine Protein (NEGATIVE [...] Pt was advised that she had a ACID STRENGTH INSPECTOR score of 480 and would nee d [...] 12/22 2313 D C 12/22 Acetaminophen PO 12/22 2314 2319 Electrolytic, Caloric, And Jair Sig/Arina Start time Last Medication Dose Route Stop Time Status Admin Sodium Chloride 1,000 ML X1ED STA 12/22 2152 DC 12/22 IV 12/23 2251 2307 Gastrointestinal Drugs [...] Result Date Time Pulse Ox 100 12/22 214 B/P 148/89 12/22 2146 B/P Mean 108 [...] (Zofran Odt) 4 MG PO Q6H PRN MD N NAUSEA/VOMITING #15 TABS Patient Instructions Abdominal [...] symptoms should prompt an immediate return to [facility] or the closest emergency department or a call to 1. Electronically Signed by Jayme Rodríguez MD on at 0016 RPT #:[id number] END OF REPORT 2020-12-22 22:03:00-00:00 [id number] [place] [address] PATIENT NAME: LONA MARIE ADMIT DATE: ACCOUNT NO: [id number] ROOM NO: AGE: 30 REPORT TYPE: eELECTROCARDIOGRAM SEX: F ADMITTING PHYSICIAN: ATTENDING PHYSICIAN: Order: [id number] Test Reason : Test Date/Time Stamp: [place] Dec 22 2020 22:03:30 Blood Pressure : / mmHG Vent. Rate : 081 BPM Atrial Rate : 081 BPM P-R Int : 142 ms QRS Dur : 068 ms QT Int : 352 ms P-R-T Axes : 048 074 046 degree s QTc Int : 408 ms Normal sinus rhythm Normal ECG No previous ECGs available Confirmed by LIBRADO MAS MD ([id number]) on 12/24/19 5:40:11 PM Referred By: Jayme Rodríguez Confirmed by:LIBRADO MAS MD Electronically Signed by Librado Mas MD on 0 12/23/20 at 1740 PATIENT NAME: LONA MARIE ACCOUNT #: [id number] 2020-08-25 11:44:00-00:00 [id number] [facility] [address] [place] [address] PATIENT NAME: LONA MARIE ADMIT DATE: ACCOUNT NO: [id number] ROOM NO: [facility] AGE: 30 REPORT TYPE: PROGRESS NOTE SEX: [...] It appears she has been seen by SNUFF GRINDER AND SCREENER at [facility] to follow up may be warranted also. Dictated By: Naheed Taylor DO WT: PN:PYOLANDA/CYRUS.07/NTS Conf#: [id number]/DID#: [id number] Authenticated by Naheed Taylor DO On 11:59:25 AM PATIENT NAME: LONA MARIE [address] at 1159 PATIENT NAME: LONA MARIE [id number] 2020-08-25 11:42:00-00:00 [id number] [facility] [address] [place] [address] [place] [address] PATIENT NAME: LONA MARIE ADMIT DATE: ACCOUNT NO: [id number] ROOM NO: P.0724 AGE: 30 REPORT TYPE: CONSULTATION SEX: F [...] repor uche dark stools. She was at [facility] and w as transferred here to [...] uncertain etiology . PATIENT NAME: LONA MARIE [id number] PLAN: I discussed the case with Dr. Riaz guerra. She was able to eat, although she does have vomiting and nausea reported. Encourag ed to use the hydrocodone. We will see how she does. If she can tolerate p.o., the plan is for her to have outpatient workup. She has been seen by SNUFF GRINDER AND SCREENER at [facility], Dr. Escobar, the extractor operator helper. She may need urology als o. Dictated By: Naheed Taylor DO WT: CON:KARLIE/07/NTS Conf#: [id number]/DID#: [id number] Authenticated by Naheed Taylor DO On 11:59:26 AM at 1159 PATIENT NAME: LONA MARIE [id number] 2020-08-23 13:16:00-00:00 [id number] [place] [address] PATIENT NAME: LONA MARIE ADMIT DATE: ACCOUNT NO: [id number] ROOM NO: [facility] AGE: 30 REPORT TYPE: ENDOSCOPY REPORT SEX: F ADMITTING PHYSICIAN:Olegario Srivastava MD ATTENDING PHYSICIAN:Olegario Srivastava MD [facility] Gastroenterology Patient Name: Cynthia Zamorano Attending MD: Rik giron MD Procedure Date: 08/23/2020 1:16 PM 80 Date of : 06/07 Admit Type: Inpatient Age: 30 Room: Room 2 Gender: Female Note Status: Finalized Procedure: Upper GI endoscopy Pre Procedure Diagnosis: Epigastric abdominal pa in Assistants: Rik Escobar MD, Crystal Auguste (Nurse), Jennifer Varela, Web Search Evaluator, Whitney vora MD Referring MD: Jose Luis [...] inform ed consent was obtained. Patient identification a nd proposed procedure were verified by the physici an, the nurse, the anesthesiologist, the anesthetis t and the windmill technician in the pre-procedure area in the procedure room in the endoscopy suite. Mental Status Examination: alert and oriented. Airway Examination: normal oropharyngeal airway and ne ck mobility. Respiratory Examination: clear to auscultation. CV Examination: normal. ASA Grade Assessment: II - A patient with mild systemic disease. After reviewing the risks and benefit s, the patient was deemed in satisfactory conditio n to undergo the procedure. The anesthesia plan was to use monitored anesthesia care (MAC). Immediatel y prior to administration of medications, the pat ient was re-assessed for adequacy to receive sedati ves. The heart rate, respiratory rate, oxygen saturations, blood pressure, adequacy of pulmon chiara ventilation, and response to care were monitore d PATIENT NAME: LONA MARIE [address] throughout the procedure. The physical status o [...] examined duodenum. Recommendation: - Return patient to [facility] for ongoing care. - Full liquid diet. - Continue present medications. - Await pathology results. Rik Escobar MD Rik Escobar MD 08/23/2020 2:00:54 PM This report has been signed electronically. Number of Addenda: 0 Note Initiated On: 08/23/2020 1:16 PM Procedure Date: 08/23/2020 1:16:08 PM Provation {[id number] ProVation FT PDF PATIENT NAME: LONA MARIE 73659 at 1401 PATIENT NAME: CYNTHIALONA 81925 2020-08-23 09:24:00-00:00 [facility] ([facility]) EMERGENCY PROVIDER REPORT REPORT#:[id number] REPORT STATUS: Signed DATE:08/23/20 TIME: 923 PATIENT: LONA MARIE UNIT #: [id number] ROOM: [facility] BED: 1 AGE: 30 SEX: F PCP PHYS: Self Referred SERVICE AUTHOR: Jose Luis Ly MD * ALL edits or amendments must be made on the [employer]/computer document * HPI-General Illness Free Text HPI [...] enies other complaints. She was admitted at [facility] a few days ago for the [...] Medical History - Adult Stated Complaint ABDOMINAL DLOM-PXGTRQZG-FXANYAP INED Allergies Coded Allergies: Penicillins (Severe, rash [...] 922 Pulse 97 08/23 922 Resp 08/23 Last Documented: Result Date Time Pulse Ox 98 08/23 1005 B/P 134/74 08/23 922 B/P Mean 94 08/23 922 O2 Delivery Room air 08/23 922 Temp 36.6 08/23 922 Pulse 97 08/23 922 Resp 08/23 Review of Vital Signs Reviewed Free Text [...] Returned Time 1000 Call Returned Date 08/23/20 [place] Rug Setter will do egd obs to [facility] Patient Discharge Departure Vital Signs/Condition Vital Signs [...] MD on 08/07 09/25 at 2100 RPT #:[id number] END OF REPORT 2020-08-21 13:35:00-00:00 [facility]) Clinical Note REPORT#:[id number] REPORT STATUS: Signed DATE:08/21/20 TIME: 1335 PATIENT: LONA MARIE UNIT #: [id number] ROOM/BED: [address] : 92 AGE: 30 SEX: F ATTEND: Austin Brooke MD ADM AUTHOR: Germania Tabor MD * ALL edits or amendments must be made on the [employer]/computer document * Clinical Note Note: When I wrote the prescriptions for this patient, the pharmacy ([facility] [phone]) called to tell me they could refill the ativan as written, but not the oxycodone. I told them I would be at the [facility] Tuesday 08/21 ( now today) and that she could get one more r x for the oxycodone to make up for the refill. (I wrote for 3 days worth, and a refill, not wanting to give the patient too many pills at one time). Pt called me yesterday. I returned her call today [phone]. The patient requesting refills of both Ativan and oxycodone. I told her the ativan should have a refill and I confirmed this with the pharmacy. The patient is going to see GI today at a building near [place]. She said she can stop by to [...] by Germania Tabor MD on at 1341 [facility] #:[id number] END OF REPORT 2020-08-17 14:31:00-00:00 [id number] [facility] [address] [place], [place] [address] PATIENT NAME: LONA MARIE ADMIT DATE: 08/15/20 ACCOUNT NO: [id number] ROOM NO: .2660 AGE: 30 SEX: F ADMITTING PHYSICIAN: Zulay Brooke MD ATTENDING PHYSICIAN: Zulay Brooke MD ADMISSION DATE: 08/15/2020 DISCHARGE DATE: 08/17/2020 ADMITTING DIAGNOSES: Ruptured ovarian cyst, urin chiara tract infection, abdominal/pelvic pain, narcotic use, heartburn. ADMITTING SERVICE: SHAVING MACHINE OPERATOR hospitalist. CONSULTATIONS: SHAVING MACHINE OPERATOR hospitalist, rhea Choi a second opinion; and general surgery with Dr. Lopez. PROCEDURES: IV antibiotics. Pelvic ultra sound, abdominal ultrasound, abdominal x-ray. HOSPITAL COURSE: The patient is a 30-year-old -1-1-1, who had developed pain shortly postcoital, which was severe, and s he initially went to the [facility] ER in [place]. She came here the next day with [...] was given. Again, the CAT scan from [place] did not show any abnormal dilation of the kidneys or ureters or bladder, no evidence of stones. While here, a comprehensive metabolic panel was normal. Complete blood count was normal with a hemoglobin of 12 and a white count of 9. Her abdominal exam was benign. I attempted to get records as the patient had hysterectomies at [place], the patient allowed me to request those records; however, she declin ed signing to get any records from any [facility] facility. The patient required lisbeth te [...] here. The patient was upset with the SHAVING MACHINE OPERATOR hospitalist who was on the day of the 11 h and 12th, Dr. Tabor, and requested [...] medication use. This was also [facility]. [facility] [...] We gave her Pepcid and the night SHAVING MACHINE OPERATOR hospitalist, Dr. Coelho, ordered an abdom inal ultrasound and x-rays to rule out constipation issues or dilated bowel, [facility]. The abdominal ultrasound [...] DS:F.SKY/LORA/SUSANNA PATIENT NAME: LONA MARIE 139 Conf#: [id number]/DID#: [id number] Authenticated and Edited by Germania Tabor MD On 08/20/20 12:16:32 AM Electronically Signed by Germania Tabor MD on at 0018 PATIENT NAME: LONA MARIE 139 2020-08-17 10:48:00-00:00 [id number] [facility] [address] [place], [place] [address] PATIENT NAME: LONA MARIE ADMIT DATE: 08/15/20 ACCOUNT NO: [id number] ROOM NO: 2660 AGE: 30 SEX: F ADMITTING PHYSICIAN: Zulay [...] home there and then presented to the [facility] Emergency Room for continued pain. Presently, the patient [...] Tabor. Dictated By: Ashlie Lopez MD WT: CON:ChaniSKY/HERSON. Conf#: [id number]/DID#: [id number] Authenticated and Edited by Ashlie laurent MD On 08/21/20 10:46:17 AM Electronically Signed by Ashlie Lopez MD o n 08/21/20 at 1049 PATIENT NAME: LONA MARIE 139 2020-08-17 10:35:00-00:00 [facility] ([facility]) Clinical Note REPORT#:[id number] REPORT STATUS: Signed DATE:08/17/20 TIME: 1035 PATIENT: LONA MARIE UNIT #: [id number] ROOM/BED: [address] : 92 AGE: 30 SEX: F ATTEND: Austin Brooke MD ADM AUTHOR: Ashlie Lopez MD * ALL edits or amendments must be made on the [employer]/computer document * Clinical Note Note: Pt seen [...] mostly in the pelvic region -nonsurgical abdomen #[id number] at 1048 RPT #:[id number] END OF REPORT 2020-08-16 21:47:00-00:00 [facility] ([facility]) Clinical Note REPORT#:[id number] REPORT STATUS: Signed DATE:08/16/20 TIME: 2146 PATIENT: LONA MARIE UNIT #: [id number] ROOM/BED: 2660-A : 92 AGE: 30 SEX: F ATTEND: Austin Brooke MD ADM AUTHOR: Kaylah Coelho MD * ALL edits or amendments must be made on the el [employer]/computer document * Clinical Note Note: CTSP for [...] Coelho MD on 07/26 at 2159 RPT #:[id number] END OF REPORT 2020-08-16 12:35:00-00:00 [facility] ([facility]) Clinical Note REPORT#:[id number] REPORT STATUS: Signed DATE:08/16/20 TIME: 1235 PATIENT: LONA MARIE UNIT #: [id number] ROOM/BED: [facility]0-A : 92 AGE: 30 SEX: F ATTEND: Austin Brooke MD ADM AUTHOR: Ghulam Cid III, MD * ALL edits or amendments must be made on the [employer]/computer document * Clinical Note Note: OB /SNUFF GRINDER AND SCREENER Hospitalist Jose Roberto Consult Requesting physician Dr Germania Tabor Pelvic pain 30 year old white female [id number] S/P hysterect casandra CC Severe lower ab pelvic pain. HPI About 2 nights ago she h ad intercourse with her . She then developed severe lower ab pain that radiated to her upper abdome n. She became bloated. Claims to have had a near syncopal episode after intercourse. She was seen at [facility] in [place] earlier today. CT scan reported showing a [...] found for the bleeding. History of fibroids. SNUFF GRINDER AND SCREENER Treated for chlamydia, paps negative, fibro ids, questionable endometriosis. PMH Past history of seizures, no meds for at le ast 2 years Denies history of depression, psychiatric disor fany PSH C/section, d and c, 2 laparoscopies, TLH i n april 2020, appendectomy MEDS see hospital med [...] % (Auto) (14.3 - 34.3 %) 24.1 [place] Johns % (Auto) (5.1 - 10.4 %) 8.3 Eos % (Auto) (0.1 - 3.0 %) 1.0 Baso % (Auto) (0.1 - 1.0 %) 0.6 Neut # (Auto) (K/mm3) 5.9 Lymph # (Auto) (K/mm3) 2.2 [place] # (Auto) (K/mm3) 0.7 Eos # (Auto) (K/mm3) 0.09 Baso # (Auto) (K/mm3) 0.1 Miscellaneous Maternal Serum HCG <1 Urines Urine Color (YELLOW) YELLOW Urine Appearance (CLEAR) CLEAR Urine pH (5 - 9) 5.0 Ur Specific [place] (1.001 - 1.035) >1.035 H Urine Protein [...] ent may be needed. Consideration of a rn social services consult if needed. I spoke with Dr Tabor. jr Electronically Signed by Ghulam Cid III, MD on 08/25 at 0106 RPT #:[id number] END OF REPORT 2020-08-16 09:18:00-00:00 [facility] ([facility]) Gynecology Progress Note REPORT#:[id number] REPORT STATUS: Signed DATE:08/16/20 TIME: 917 PATIENT: LONA MARIE UNIT #: [id number] ROOM/BED: 2660-A : 92 AGE: 30 SEX: F ATTEND: Austin Brooke MD ADM AUTHOR: Germania Tabor MD * ALL edits or amendments must be made on the [employer]/computer document * Subjective Chief Complaint: PAIN, COULDN'T [...] S he states it was done at [place]. She claims to not r emember the surgeon's name. She states she only saw her 3 times, and was sent ho me the day of surgery. t states she did not follow -up for her postop visit, but went to an Er [facility] 1-2 weeks later for bloating. She was told she had some fluid in her abdomen, but everything else seemed fine, "and they sent me home with only 10 hydrocodone." She has some papers in her personal belongins arun g--from an [place] or [facility] visit yesterday. The CT with contrast [...] % (Auto) (14.3 - 34.3 %) 24.1 [place] % (Auto) (5.1 - 10.4 %) 8.3 Eos % (Auto) (0.1 - 3.0 %) 1.0 Baso % (Auto) (0.1 - 1.0 %) 0.6 Neut # (Auto) (K/mm3) 5.9 Lymph # (Auto) (K/mm3) 2.2 [place] # (Auto) (K/mm3) 0.7 Eos # (Auto) (K/mm3) 0.09 Baso # (Auto) (K/mm3) 0.1 Laboratory Tests 08/15 1535 Miscellaneous Maternal Serum HCG <1 Laboratory Tests 08/15 1635 Urines Urine Color (YELLOW) YELLOW Urine Appearance (CLEAR) CLEAR Urine pH (5 - 9) 5.0 Ur Specific [place] (1.001 - 1.035) >1.035 H Urine Protein [...] Impressions: ULTRASOUND - US TRANSVAGINAL W/PELVIS 08/15 514 Report Impression - Status: SIGNED Entered: 08/15/2020 2886 IMPRESSION: 1. Abnormal small volume free pelvic fluid. 2. Nonvisualization of the uterus and ovaries. SL: SG-H Impression By: Jose L Hairston MD ULTRASOUND - US PELVIS COMPLETE 08/15 175 Report Impression - Status: SIGNED Entered: 08/15/20207 IMPRESSION: 1. Abnormal small volume free pelvic [...] We could try to get Ct from [facility] to be courired here--I will see sbout requesting. I had the patient sign records to try to get a better idea of prior surgeries. Electronically Signed by Germania Tabor MD on 07/26 at 0933 RPT #:[id number] END OF REPORT 2020-08-16 09:18:00-00:00 [facility] ([facility]) Gynecology Progress Note REPORT#:[id number] REPORT STATUS: Signed DATE:08/16/20 TIME: 917 PATIENT: LONA MARIE UNIT #: [id number] ROOM/BED: 2660-A : 92 AGE: 30 SEX: F ATTEND: Austin Brooke MD ADM AUTHOR: Germania Tabor MD * ALL edits or amendments must be made on the [employer]/computer document * See Addendum Subjective Chief Complaint: [...] S he states it was done at [place]. She claims to not r emember the surgeon's name. She states she only saw her 3 times, and was sent ho me the day of surgery. Sht states she did not follow -up for her postop visit, but went to an Er [facility] 1-2 weeks later for bloating. She was told she had some fluid in her abdomen, but everything else seemed fine, "and they sent me home with only 10 hydrocodone." She has some papers in her personal belongins arun david--from an [place] or [facility] visit yesterday. The CT with contrast [...] % (Auto) (14.3 - 34.3 %) 24.1 [place] Johns % (Auto) (5.1 - 10.4 %) 8.3 Eos % (Auto) (0.1 - 3.0 %) 1.0 Baso % (Auto) (0.1 - 1.0 %) 0.6 Neut # (Auto) (K/mm3) 5.9 Lymph # (Auto) (K/mm3) 2.2 [place] # (Auto) (K/mm3) 0.7 Eos # (Auto) (K/mm3) 0.09 Baso # (Auto) (K/mm3) 0.1 Laboratory Tests 08/15 1535 Miscellaneous Maternal Serum HCG <1 Laboratory Tests 08/15 1635 Urines Urine Color (YELLOW) YELLOW Urine Appearance (CLEAR) CLEAR Urine pH (5 - 9) 5.0 Ur Specific [place] (1.001 - 1.035) >1.035 H Urine Protein [...] We could try to get Ct from [facility] to be courired here--I will see sbout requesting. I had the patient sign records to try to get a better idea of prior surgeries. Electronically Signed by Germania Tabor MD on 07/26 at 0933 Addendum 1: 08/16/20 1109 by Germania Tabor MD I looked up the patient's [facility] report with >20 fills for narcotics going back to about 2018. Th ey seem to be in clusters, for a few months she will fill narcotics--even sometim es days apart, and then there will be a gap of a few months. I have sent the release of r ecords to [facility] w/o response yet. I then went back to ask the patient if I could also send to [facility], but she said she's not had anything done at [facility] this y ear, only their ER in [place]. I also asked if she would sign [...] second oppinion . I spoke to our leadership program internship who is out of to , but recommended that the other hospitalist see the patient. I have contac uche him. Electronically Signed by Germania Tabor MD on 07/26 at 1123 RPT #:[id number] END OF REPORT 2020-08-16 09:18:00-00:00 [facility] ([facility]) Gynecology Progress Note REPORT#:[id number] REPORT STATUS: Signed DATE:08/16/20 TIME: 917 PATIENT: LONA MARIE UNIT #: [id number] ROOM/BED: [facility]0-A : 92 AGE: 30 SEX: F ATTEND: Austin Brooke MD ADM AUTHOR: Germania Tabor MD * ALL edits or amendments must be made on the [employer]/computer document * See Addendum Subjective Chief Complaint: [...] S he states it was done at [place]. She claims to not r emember the surgeon's name. She states she only saw her 3 times, and was sent ho me the day of surgery. Sht states she did not follow -up for her postop visit, but went to an Er [facility] 1-2 weeks later for bloating. She was told she had some fluid in her abdomen, but everything else seemed fine, "and they sent me home with only 10 hydrocodone." She has some papers in her personal belongins ba frankie--from an [place] or [facility] visit yesterday. The CT with contrast [...] % (Auto) (14.3 - 34.3 %) 24.1 [place] Johns % (Auto) (5.1 - 10.4 %) 8.3 Eos % (Auto) (0.1 - 3.0 %) 1.0 Baso % (Auto) (0.1 - 1.0 %) 0.6 Neut # (Auto) (K/mm3) 5.9 Lymph # (Auto) (K/mm3) 2.2 [place] Johns # (Auto) (K/mm3) 0.7 Eos # (Auto) (K/mm3) 0.09 Baso # (Auto) (K/mm3) 0.1 Laboratory Tests 08/15 1535 Miscellaneous Maternal Serum HCG <1 Laboratory Tests 08/15 1635 Urines Urine Color (YELLOW) YELLOW Urine Appearance (CLEAR) CLEAR Urine pH (5 - 9) 5.0 Ur Specific [place] (1.001 - 1.035) >1.035 H Urine Protein [...] We could try to get Ct from [facility] to be courired here--I will see sbout requesting. I had the patient sign records to try to get a better idea of prior surgeries. Electronically Signed by Germania Tabor MD on 07/26 at 0933 Addendum 1: 08/16/20 1109 by Germania Tabor MD I looked up the patient's [facility] report with >20 fills for narcotics [...] patient if I could also send to [facility], but she said she's not had anything done at [facility] this y ear, only their ER in [place]. I also asked if she would sign [...] second oppinion . I spoke to our leadership program internship who is out of to wn, but [...] told me, Dr. Perkins, a doctor at [facility] who did her l aparoscopy, "messed [...] Tabor MD on 07/26 at 1507 RPT #:[id number] END OF REPORT 2020-08-16 09:18:00-00:00 [facility] ([facility] Gynecology Progress Note REPORT#:[id number] REPORT STATUS: Signed DATE:08/16/20 TIME: 917 PATIENT: LONA MARIE UNIT #: [id number] ROOM/BED: [facility]0-A : 92 AGE: 30 SEX: F ATTEND: Austin Brooke MD ADM AUTHOR: Germania Tabor MD * ALL edits or amendments must be made on the [employer]/computer document * See Addendum Subjective Chief Complaint: [...] S he states it was done at [place]. She claims to not r emember the surgeon's name. She states she only saw her 3 times, and was sent ho me the day of surgery. Sht states she did not follow -up for her postop visit, but went to an Er [facility] 1-2 weeks later for bloating. She was told she had some fluid in her abdomen, but everything else seemed fine, "and they sent me home with only 10 hydrocodone." She has some papers in her personal belongins arun david--from an [place] or [facility] visit yesterday. The CT with contrast [...] % (Auto) (14.3 - 34.3 %) 24.1 [place] Johns % (Auto) (5.1 - 10.4 %) 8.3 Eos % (Auto) (0.1 - 3.0 %) 1.0 Baso % (Auto) (0.1 - 1.0 %) 0.6 Neut # (Auto) (K/mm3) 5.9 Lymph # (Auto) (K/mm3) 2.2 [place] # (Auto) (K/mm3) 0.7 Eos # (Auto) (K/mm3) 0.09 Baso # (Auto) (K/mm3) 0.1 Laboratory Tests 08/15 1535 Miscellaneous Maternal Serum HCG <1 Laboratory Tests 08/15 1635 Urines Urine Color (YELLOW) YELLOW Urine Appearance (CLEAR) CLEAR Urine pH (5 - 9) 5.0 Ur Specific [place] (1.001 - 1.035) >1.035 H Urine Protein [...] We could try to get Ct from [facility] to be courired here--I will see sbout requesting. I had the patient sign records to try to get a better idea of prior surgeries. Electronically Signed by Germania Tabor MD on 07/26 at 0933 Addendum 1: 08/16/20 1109 by Germania Tabor MD I looked up the patient's [facility] report with >20 fills for narcotics [...] patient if I could also send to [facility], but she said she's not had anything done at [facility] this y ear, only their ER in [place]. I also asked if she would sign [...] second oppinion . I spoke to our leadership program internship who is out of to wn, but [...] told me, Dr. Perkins, a doctor at [facility] who did her l aparoscopy, "messed [...] Tabor MD on 07/26 at 1525 RPT #:[id number] END OF REPORT 2020-08-15 23:15:00-00:00 [facility]) SNUFF GRINDER AND SCREENER Admission H P REPORT#:[id number] REPORT STATUS: Signed DATE:08/15/20 TIME: 2314 PATIENT: LONA MARIE UNIT #: [id number] ROOM/BED: [address] : 92 AGE: 30 SEX: F ATTEND: Austin Brooke MD ADM AUTHOR: Zulay Brooke MD * ALL edits or amendments must be made on the [employer]/computer document * History of Present Illness Chief [...] ameliorating or exacerbating factors. She went to [facility] and received IV pain meds without relief. They were going to admit her for pain control, but she declined. S he went home and the pain became unbearable, so she came to [facility]. Of note, she is s/p hysterectomy [...] tramadol (SHORTNESS OF BREATH 08/15/20) trazodone (RASH-UNKNOWN 12/10/20) Review of Systems Constitutional: Denies: chills, fever. [...] full range of motion, normal in spection Neuro/ASSISTANT FOREMAN: alert, oriented X 3 Psychiatry: normal affect, [...] % (Auto) (14.3 - 34.3 %) 24.1 [place] % (Auto) (5.1 - 10.4 %) 8.3 Eos % (Auto) (0.1 - 3.0 %) 1.0 Baso % (Auto) (0.1 - 1.0 %) 0.6 Neut # (Auto) (K/mm3) 5.9 Lymph # (Auto) (K/mm3) 2.2 [place] # (Auto) (K/mm3) 0.7 Eos # (Auto) (K/mm3) 0.09 Baso # (Auto) (K/mm3) 0.1 Miscellaneous Maternal Serum HCG <1 Urines Urine Color (YELLOW) YELLOW Urine Appearance (CLEAR) CLEAR Urine pH (5 - 9) 5.0 Ur Specific [place] (1.001 - 1.035) >1.035 H Urine Protein [...] Zulay Brooke MD on at 0656 RPT #:[id number] END OF REPORT 2020-08-15 15:05:00-00:00 [facility] ([facility]) EMERGENCY PROVIDER REPORT REPORT#:[id number] REPORT STATUS: Signed DATE:08/15/20 TIME: 150 PATIENT: LONA MARIE UNIT #: [id number] ROOM/BED: AGE: 30 SEX: F PCP PHYS: No Primary or Family Ph ysician SERVICE AUTHOR: Andressa Razo MD * ALL edits or amendments must be made on the el [employer]/computer document * Andressa Razo I 08/15/20 1505: [...] of vomiting dark content, patient went to [facility] ER and she got CT abdomen [...] % (Auto) (14.3 - 34.3 %) 24.1 [place] % (Auto) (5.1 - 10.4 %) 8.3 Eos % (Auto) (0.1 - 3.0 %) 1.0 Baso % (Auto) (0.1 - 1.0 %) 0.6 Neut # (Auto) (K/mm3) 5.9 Lymph # (Auto) (K/mm3) 2.2 [place] # (Auto) (K/mm3) 0.7 Eos # (Auto) (K/mm3) 0.09 Baso # (Auto) (K/mm3) 0.1 Miscellaneous Maternal Serum HCG <1 Urines Urine Color (YELLOW) YELLOW Urine Appearance (CLEAR) CLEAR Urine pH (5 - 9) 5.0 Ur Specific [place] (1.001 - 1.035) >1.035 H Urine Protein [...] current impression and/or treatment plan. The [facility] physician is now responsible for the patient's care and final dis position. Care Transferred to Dr Amanda Care Transferred at 1800 Discussed Complaint(s) Yes Laboratory Evaluation Lab evaluation discussed Imaging Studies Ordered, not yet done at 1741 RPT #:[id number] END OF REPORT 2020-08-15 15:05:00-00:00 [facility] ([facility]) EMERGENCY PROVIDER REPORT REPORT#:[id number] REPORT STATUS: Signed DATE:08/15/20 TIME: 150 PATIENT: LONA MARIE UNIT #: [id number] ROOM/BED: AGE: 30 SEX: F PCP PHYS: No Primary or Family Ph ysician SERVICE AUTHOR: Andressa Razo MD * ALL edits or amendments must be made on the [employer]/[address] document * See Addendum Andressa Razo I [...] of vomiting dark content, patient went to [facility] ER and she got CT abdomen [...] B/P 163/92 08/15 1506 B/P Mean 115 / 1506 O2 Delivery Room air 08/15 1506 Temp 36.9 08/15 1506 Pulse 110 08/15 1506 Resp 20 08/15 1506 Last Documented: Result Date Time Pulse Ox 100 08/15 1506 B/P 163/92 08/15 1506 B/P Mean 115 12/10 1506 O2 [...] % (Auto) (14.3 - 34.3 %) 24.1 [place] % (Auto) (5.1 - 10.4 %) 8.3 Eos % (Auto) (0.1 - 3.0 %) 1.0 Baso % (Auto) (0.1 - 1.0 %) 0.6 Neut # (Auto) (K/mm3) 5.9 Lymph # (Auto) (K/mm3) 2.2 [place] # (Auto) (K/mm3) 0.7 Eos # (Auto) (K/mm3) 0.09 Baso # (Auto) (K/mm3) 0.1 Miscellaneous Maternal Serum HCG <1 Urines Urine Color (YELLOW) YELLOW Urine Appearance (CLEAR) CLEAR Urine pH (5 - 9) 5.0 Ur Specific [place] (1.001 - 1.035) >1.035 H Urine Protein [...] current impression and/or treatment plan. The [facility] physician is now responsible for the patient's care and final dis position. Care Transferred to Dr Amanda Care Transferred at 1800 Discussed Complaint(s) Yes Laboratory Evaluation Lab evaluation discussed Imaging Studies Ordered, not yet done at 1741 Addendum 1: 08/15/20 180 by José Rader MD for Thomas Chamberlain MD Patient Addendum Addendum at 1806 RPT #:[id number] END OF REPORT 2020-08-15 15:05:00-00:00 [facility]) EMERGENCY PROVIDER REPORT REPORT#:[id number] REPORT STATUS: Signed DATE:08/15/20 TIME: 1505 PATIENT: LONA MARIE UNIT #: [id number] ROOM/BED: AGE: 30 SEX: F PCP PHYS: No Primary or Family Ph ysician SERVICE AUTHOR: Andressa Razo MD * ALL edits or amendments must be made on the [employer]/computer document * See Addendum Andressa Razo I [...] of vomiting dark content, patient went to [facility] ER and she got CT abdomen [...] Diagnostics Lab Results Interpretation Results Laboratory Tests 12/10/20 1535: [Embedded Image Not Available] Laboratory Tests: [...] % (Auto) (14.3 - 34.3 %) 24.1 [place] % (Auto) (5.1 - 10.4 %) 8.3 Eos % (Auto) (0.1 - 3.0 %) 1.0 Baso % (Auto) (0.1 - 1.0 %) 0.6 Neut # (Auto) (K/mm3) 5.9 Lymph # (Auto) (K/mm3) 2.2 [place] # (Auto) (K/mm3) 0.7 Eos # (Auto) (K/mm3) 0.09 Baso # (Auto) (K/mm3) 0.1 Miscellaneous Maternal Serum HCG <1 Urines Urine Color (YELLOW) YELLOW Urine Appearance (CLEAR) CLEAR Urine pH (5 - 9) 5.0 Ur Specific [place] (1.001 - 1.035) >1.035 H Urine Protein [...] current impression and/or treatment plan. The [facility] physician is now responsible for the [...] MD Patient Addendum Addendum at 1807 RPT #:[id number] END OF REPORT 2020-08-15 15:05:00-00:00 [facility] ([facility]) EMERGENCY PROVIDER REPORT REPORT#:[id number] REPORT STATUS: Signed DATE:08/15/20 TIME: 1505 PATIENT: LONA MARIE UNIT #: [id number] ROOM/BED: AGE: 30 SEX: F PCP PHYS: No Primary or Family Ph ysician SERVICE AUTHOR: Andressa Razo MD * ALL edits or amendments must be made on the [employer]/computer document * See Addendum Andressa Razo I [...] MG X1ED STA 08/15 1503 DCr 1 /10 IV 08/15 1504 1553 Electrolytic, Caloric, And [...] of vomiting dark content, patient went to [facility] ER and she got CT abdomen [...] 1506 Temp 36.9 12/ 1506 Pulse 110 12/10 1506 Resp 20 [...] % (Auto) (14.3 - 34.3 %) 24.1 [place] % (Auto) (5.1 - 10.4 %) 8.3 Eos % (Auto) (0.1 - 3.0 %) 1.0 Baso % (Auto) (0.1 - 1.0 %) 0.6 Neut # (Auto) (K/mm3) 5.9 Lymph # (Auto) (K/mm3) 2.2 [place] # (Auto) (K/mm3) 0.7 Eos # (Auto) (K/mm3) 0.09 Baso # (Auto) (K/mm3) 0.1 Miscellaneous Maternal Serum HCG <1 Urines Urine Color (YELLOW) YELLOW Urine Appearance (CLEAR) CLEAR Urine pH (5 - 9) 5.0 Ur Specific [place] (1.001 - 1.035) >1.035 H Urine Protein [...] current impression and/or treatment plan. The [facility] physician is now responsible for the [...] MD Patient Addendum Addendum at 1810 RPT #:[id number] END OF REPORT 2020-08-15 15:05:00-00:00 [facility] ([facility]) EMERGENCY PROVIDER REPORT REPORT#:[id number] REPORT STATUS: Signed DATE:08/15/20 TIME: 1505 PATIENT: LONA MARIE UNIT #: [id number] ROOM/BED: AGE: 30 SEX: F PCP PHYS: No Primary or Family Ph ysician SERVICE AUTHOR: Andressa Razo MD * ALL edits or amendments must be made on the [employer]/computer document * See Addendum Andressa Razo I [...] MCG X1ED STA 08/15 2109 DC IV 12/ 2110 Hydromorphone HCl 0.5 MG X1ED STA 08/15 2011 DC r 12/10 IV 08/15 2012 2044 Hydromorphone HCl 0.5 MG X1ED STA 12/10 1843 DC r 12/10 IV 12/10 1844 1904 Hydromorphone HCl 1 MG X1ED STA 12/10 [...] 1506 Pulse 110 / 1506 Resp 20 / 1506 Last Documented: Result Date Time Pulse Ox 100 08/15 1834 B/P 138/66 12/ 1834 B/P Mean 90 08/15 1834 Temp 36.8 / 1834 Pulse 99 08/15 1834 Resp 18 [...] of vomiting dark content, patient went to [facility] ER and she got CT abdomen [...] Mean 90 08/15 1834 Temp 36.8 08/15 183 Pulse 99 08/15 [...] % (Auto) (14.3 - 34.3 %) 24.1 [place] Johns % (Auto) (5.1 - 10.4 %) 8.3 Eos % (Auto) (0.1 - 3.0 %) 1.0 Baso % (Auto) (0.1 - 1.0 %) 0.6 Neut # (Auto) (K/mm3) 5.9 Lymph # (Auto) (K/mm3) 2.2 [place] # (Auto) (K/mm3) 0.7 Eos # (Auto) (K/mm3) 0.09 Baso # (Auto) (K/mm3) 0.1 Miscellaneous Maternal Serum HCG <1 Urines Urine Color (YELLOW) YELLOW Urine Appearance (CLEAR) CLEAR Urine pH (5 - 9) 5.0 Ur Specific [place] (1.001 - 1.035) >1.035 H Urine Protein [...] current impression and/or treatment plan. The [facility] physician is now responsible for the [...] Consultation Consultation Referral/Consult Name Zulay Brooke MD [employer] Called Hospitalist Requested Call Time 2112 Requested Call Date 08/15/20 Call Returned Call returned Call Returned Time 2112 Call Returned Date 08/15/20 [employer] Rug [employer]ter Will see patient at 1741 Addendum 1: 08/15/20 1806 by José Rader MD for Thomas Chamberlain MD Patient Addendum Addendum at 1806 Addendum 2: 08/15/201806 by José Rader MD Patient Addendum Addendum at 1807 Addendum 3: 08/15/201809 by José Rader MD Patient Addendum Addendum at 1810 RPT #:[id number] END OF REPORT 2020-08-15 15:05:00-00:00 [facility] ([facility]) EMERGENCY PROVIDER REPORT REPORT#:[id number] REPORT STATUS: Signed DATE:08/15/20 TIME: 150 PATIENT: LONA MARIE UNIT #: [id number] ROOM/BED: AGE: 30 SEX: F PCP PHYS: No Primary or Family Ph ysician SERVICE AUTHOR: Andressa Razo MD * ALL edits or amendments must be made on the [employer]/[address] document * See Addendum Andressa Razo I [...] Admin Fentanyl Citrate 50 MCG X1ED STA 12/10 2109 DC 12/10 IV 08/15 2110 2218 Hydromorphone HCl 0.5 MG X1ED STA 08/15 2011 DC r 12/10 IV 08/15 Hydromorphone HCl 0.5 MG X1ED STA 08/15 1843 DC r /10 IV 08/15 1844 1904 Hydromorphone HCl 1 [...] Pulse Ox 100 / 1506 B/P 163/92 12/ 1506 B/P Mean 115 / 1506 O2 [...] this en try have been reviewed. Ashley aRder 08/15/20 1534: HPI-General Illness Free Text HPI [...] of vomiting dark content, patient went to [facility] ER and she got CT abdomen [...] % (Auto) (14.3 - 34.3 %) 24.1 [place] % (Auto) (5.1 - 10.4 %) 8.3 Eos % (Auto) (0.1 - 3.0 %) 1.0 Baso % (Auto) (0.1 - 1.0 %) 0.6 Neut # (Auto) (K/mm3) 5.9 Lymph # (Auto) (K/mm3) 2.2 [place] # (Auto) (K/mm3) 0.7 Eos # (Auto) (K/mm3) 0.09 Baso # (Auto) (K/mm3) 0.1 Miscellaneous Maternal Serum HCG <1 Urines Urine Color (YELLOW) YELLOW Urine Appearance (CLEAR) CLEAR Urine pH (5 - 9) 5.0 Ur Specific [place] (1.001 - 1.035) >1.035 H Urine Protein [...] current impression and/or treatment plan. The [facility] physician is now responsible for the [...] Consultation Consultation Referral/Consult Name Zulay Brooke MD [employer] Called Hospitalist Requested Call Time 2112 Requested Call Date 08/15/20 Call Returned Call returned Call Returned Time 2112 Call Returned Date 08/15/20 Ax[employer] Rug Setter Will see patient at 1741 Addendum 1: 08/15/201805 by José Rader MD for Thomas Chamberlain MD Patient Addendum Addendum at 1806 Addendum 2: 08/15/20 180 by José Rader MD Patient Addendum Addendum at 1807 Addendum 3: 08/15/20 1810 by José Rader MD Patient Addendum Addendum at 1810 RPT #:[id number] END OF REPORT 2020-08-15 15:05:00-00:00 [facility]) EMERGENCY PROVIDER REPORT REPORT#:[id number] REPORT STATUS: Signed DATE:08/15/20 TIME: 150 PATIENT: LONA MARIE UNIT #: [id number] ROOM/BED: AGE: 30 SEX: F PCP PHYS: No Primary or Family Ph ysician SERVICE AUTHOR: Andressa Razo MD * ALL edits or amendments must be made on the [employer]/computer document * See Addendum Andressa Razo I [...] 50 MCG X1ED STA 08/15 2109 DC 12 IV 08/15 2110 2218 Hydromorphone HCl 0.5 MG X1ED STA 08/15 2011 DC r 12/10 IV 08/154 Hydromorphone HCl 0.5 MG X1ED STA 08/15 [...] of vomiting dark content, patient went to [facility] ER and she got CT abdomen [...] % (Auto) (14.3 - 34.3 %) 24.1 [place] % (Auto) (5.1 - 10.4 %) 8.3 Eos % (Auto) (0.1 - 3.0 %) 1.0 Baso % (Auto) (0.1 - 1.0 %) 0.6 Neut # (Auto) (K/mm3) 5.9 Lymph # (Auto) (K/mm3) 2.2 [place] Johns # (Auto) (K/mm3) 0.7 Eos # (Auto) (K/mm3) 0.09 Baso # (Auto) (K/mm3) 0.1 Miscellaneous Maternal Serum HCG <1 Urines Urine Color (YELLOW) YELLOW Urine Appearance (CLEAR) CLEAR Urine pH (5 - 9) 5.0 Ur Specific [place] (1.001 - 1.035) >1.035 H Urine Protein [...] current impression and/or treatment plan. The [facility] physician is now responsible for the [...] Consultation Consultation Referral/Consult Name Zulay Brooke MD [employer] Called Hospitalist Requested Call Time 2112 Requested Call Date 08/15/20 Call Returned Call returned Call Returned Time 2112 Call Returned Date 08/15/20 Axminster Rug Setter Will see patient Free Text MDM Notes [...] results, Imaging studies, Need for admission at 3294 at 0735 Addendum 1: 08/15/201805 by José Rader MD for Thomas Chamberlain MD Patient Addendum Addendum at 1806 Addendum 2: 08/15/201806 by José Rader MD Patient Addendum Addendum at 1807 Addendum 3: 08/15/201809 by José Rader MD Patient Addendum Addendum at 1810 RPT #:[id number] END OF REPORT 2020-08-15 15:05:00-00:00 [facility]) EMERGENCY PROVIDER REPORT REPORT#:[id number] REPORT STATUS: Signed DATE:08/15/20 TIME: 1505 PATIENT: LONA MARIE UNIT #: [id number] ROOM/BED: [facility] AGE: 30 SEX: F PCP PHYS: Zulay Brooke MD SERVICE AUTHOR: Andressa Razo MD * ALL edits or amendments must be made on the [employer]/computer document * See Addendum Andressa Razo I [...] STA 08/15 2109 DC 12/10 IV 08/15 2110 2218 Hydromorphone HCl 0.5 MG X1ED STA 08/15 2011 DC r 12/10 IV 08/15 Hydromorphone HCl 0.5 MG X1ED STA 08/15 1843 DC r /10 IV 08/15 1844 1904 Hydromorphone HCl 1 MG X1ED STA 08/15 1652 DCr 12/10 IV 08/15 1653 1724 Morphine Sulfate 4 MG X1ED STA 08/15 1503 DCr 1 / IV 08/15 1504 1553 Electrolytic, Caloric, And Jair Sig/Arina Start time Last Medication Dose Route Stop Time Status Admin Sodium Chloride 1,000 ML X1ED STA 08/15 1653 DC 12/10 IV 12 1654 1726 [...] 1506 Pulse 110 12/ 1506 Resp 20 12/10 1506 Last Documented: Result Date Time Pulse Ox 100 08/15 2030 B/P 120/70 12/ 2030 B/P Mean 86 12/10 2030 O2 Delivery Room air 08/15 2030 Temp 36.8 12/ 2030 Pulse 90 / 2030 Resp 18 08/15 2030 All vital [...] of vomiting dark content, patient went to [facility] ER and she got CT abdomen [...] % (Auto) (14.3 - 34.3 %) 24.1 [place] Johns % (Auto) (5.1 - 10.4 %) 8.3 Eos % (Auto) (0.1 - 3.0 %) 1.0 Baso % (Auto) (0.1 - 1.0 %) 0.6 Neut # (Auto) (K/mm3) 5.9 Lymph # (Auto) (K/mm3) 2.2 [place] Johns # (Auto) (K/mm3) 0.7 Eos # (Auto) (K/mm3) 0.09 Baso # (Auto) (K/mm3) 0.1 Miscellaneous Maternal Serum HCG <1 Urines Urine Color (YELLOW) YELLOW Urine Appearance (CLEAR) CLEAR Urine pH (5 - 9) 5.0 Ur Specific [place] (1.001 - 1.035) >1.035 H Urine Protein [...] current impression and/or treatment plan. The [facility] physician is now responsible for the [...] Consultation Consultation Referral/Consult Name Zulay Brooke MD [employer] Called Hospitalist Requested Call Time 2112 Requested Call Date 08/15/20 Call Returned Call returned Call Returned Time 2112 Call Returned Date 08/15/20 Ax[employer] Rug Setter Will see patient Free Text MDM Notes [...] MD Patient Addendum Addendum at 1810 RPT #:[id number] END OF REPORT 2020-08-15 15:05:00-00:00 [facility]) EMERGENCY PROVIDER REPORT REPORT#:[id number] REPORT STATUS: Signed DATE:08/15/20 TIME: 1505 PATIENT: LONA MARIE UNIT #: [id number] ROOM/BED: [facility] AGE: 30 SEX: F PCP PHYS: Zulay Brooke MD SERVICE AUTHOR: Andressa Razo MD * ALL edits or amendments must be made on the [employer]/computer document * See Addendum Andressa Razo I [...] MG X1ED STA 08/15 2011 DC r 08/15 IV 08/15 Hydromorphone HCl 0.5 MG X1ED STA 08/15 1843 DC r 08/15 IV 08/15 1844 1904 Hydromorphone HCl 1 MG X1ED STA 08/15 1652 DCr / IV 08/15 1653 1724 Morphine Sulfate 4 MG X1ED STA 08/15 1503 DCr 1 10/16 IV 08/15 1504 1553 Electrolytic, Caloric, And Jair Sig/Arina Start time Last Medication Dose Route Stop Time Status Admin Sodium Chloride 1,000 ML X1ED STA 10 1653 DC 12/10 IV 08/15 1654 1726 Sodium Chloride 1,000 ML X1ED STA 08/15 1515 D C 08/15 IV 08/15 1516 1552 Gastrointestinal Drugs Sig/Arina Start time Last Medication Dose Route Stop Time Status Admin Ondansetron HCl 4 MG X1ED STA 08/15 1503 DC 12/ IV 08/15 1504 1553 Ashley Rader 08/15/20 1534: HPI-General [...] of vomiting dark content, patient went to [facility] ER and she got CT abdomen [...] B/P 134/71 08/16 0000 B/P Mean 92 / 0000 O2 Delivery Room air 12/11 0000 Temp 37.0 08/16 Pulse 84 08/16 Resp 18 08/16 Review of Vital Signs Reviewed Basic Physical [...] % (Auto) (14.3 - 34.3 %) 24.1 [place] Johns % (Auto) (5.1 - 10.4 %) 8.3 Eos % (Auto) (0.1 - 3.0 %) 1.0 Baso % (Auto) (0.1 - 1.0 %) 0.6 Neut # (Auto) (K/mm3) 5.9 Lymph # (Auto) (K/mm3) 2.2 [place] # (Auto) (K/mm3) 0.7 Eos # (Auto) (K/mm3) 0.09 Baso # (Auto) (K/mm3) 0.1 Miscellaneous Maternal Serum HCG <1 Urines Urine Color (YELLOW) YELLOW Urine Appearance (CLEAR) CLEAR Urine pH (5 - 9) 5.0 Ur Specific [place] (1.001 - 1.035) >1.035 H Urine Protein [...] Pulse Ox 99 08/16 B/P 134/71 08/16 B/P Mean 92 08/16 O2 Delivery Room air 08/16 Temp 37.0 08/16 Pulse 84 08/16 0000 Resp 18 08/16 All vital signs available [...] current impression and/or treatment plan. The [facility] physician is now responsible for the [...] Consultation Consultation Referral/Consult Name Zulay Brooke MD [employer]ter Called Hospitalist Requested Call Time 2112 Requested Call Date 08/15/20 Call Returned Call returned Call Returned Time 2112 Call Returned Date 08/15/20 Ax[employer] Rug Setter Will see patient Free Text MDM Notes [...] MD Patient Addendum Addendum at 1810 RPT #:[id number] END OF REPORT 2020-08-15 15:05:00-00:00 [facility]) EMERGENCY PROVIDER REPORT REPORT#:[id number] REPORT STATUS: Signed DATE:08/15/20 TIME: 1505 PATIENT: LONA MARIE UNIT #: [id number] ROOM/BED: 2660-A AGE: 30 SEX: F PCP PHYS: Zulay Brooke MD SERVICE AUTHOR: Andressa Razo MD * ALL edits or amendments must be made on the [employer]/computer document * See Addendum Andressa Razo An 08/15/20 1505: HPI-General Illness General Initial Greet [...] X1ED STA 08/15 1652 DCr 12/10 IV 1210 1653 1724 Morphine Sulfate 4 MG X1ED STA 12 1503 DCr 12/10 IV 12/10 1504 1553 Electrolytic, Caloric, And Jair Sig/Arina Start time Last Medication Dose Route Stop Time Status Admin Sodium Chloride 1,000 ML X1ED STA 08/15 1653 DC 12/10 IV 12 1654 1726 Sodium Chloride 1,000 ML X1ED STA 08/15 1515 DC 12/ IV 12/10 1516 1552 Gastrointestinal Drugs Sig/Arina Start time Last Medication Dose Route Stop Time Status Admin Ondansetron HCl 4 MG X1ED STA 08/15 1503 DC 12/ 10 IV 12/ 1504 [facility]34: HPI-General Illness Free Text HPI [...] of vomiting dark content, patient went to [facility] ER and she got CT abdomen [...] B/P 134/71 08/16 0000 B/P Mean 92 / 0000 O2 [...] % (Auto) (14.3 - 34.3 %) 24.1 [place] % (Auto) (5.1 - 10.4 %) 8.3 Eos % (Auto) (0.1 - 3.0 %) 1.0 Baso % (Auto) (0.1 - 1.0 %) 0.6 Neut # (Auto) (K/mm3) 5.9 Lymph # (Auto) (K/mm3) 2.2 [place] # (Auto) (K/mm3) 0.7 Eos # (Auto) (K/mm3) 0.09 Baso # (Auto) (K/mm3) 0.1 Miscellaneous Maternal Serum HCG <1 Urines Urine Color (YELLOW) YELLOW Urine Appearance (CLEAR) CLEAR Urine pH (5 - 9) 5.0 Ur Specific [place] (1.001 - 1.035) >1.035 H Urine Protein [...] Delivery Room air 08/16 0000 Temp 37.0 12/ 0000 Pulse 84 [...] current impression and/or treatment plan. The [facility] physician is now responsible for the [...] Consultation Consultation Referral/Consult Name Zulay Brooke MD [employer]ter Called Hospitalist Requested Call Time 2112 Requested Call Date 08/15/20 Call Returned Call returned Call Returned Time 2112 Call Returned Date 08/15/20 Ax[employer] Rug Setter Will see patient Free Text MDM Notes [...] MD Patient Addendum Addendum at 1810 RPT #:[id number] END OF REPORT 2020-08-05 21:32:00-00:00 [facility] EMERGENCY PROVIDER REPORT REPORT#:[id number] REPORT STATUS: Signed DATE:08/05/20 TIME: 2131 PATIENT: OLNA MARIE UNIT #: [id number] ROOM/BED: AGE: 30 SEX: F PCP PHYS: Akiko Awad MD SERVICE AUTHOR: Vivek Poon MD * ALL edits or amendments must be made on the [employer]/computer document * HPI-Trauma Minor/Fall General Initial Greet [...] PT Patient/Control Mix (9.3 - 12.9 SECONDS) 11 .5 Hematology WBC (4.5 - 11.0 x10 3/uL) [...] % (Auto) (14.0 - 32.0 %) 29.0 [place] % (Auto) (4.8 - 9.0 %) 5.0 Eos % (Auto) (0.3 - 3.7 %) 0.5 Baso % (Auto) (0.0 - 2.0 %) 0.5 Neut # (Auto) (2.0 - 7.6 x10 3/uL) 6.60 Lymph # (Auto) (1.0 - 3.8 x10 3/uL) 2.96 [place] # (Auto) (0.1 - 0.8 x10 3/uL) [...] There is no parapharyngeal abscess. Impression By: [email or web address] Burris D.O. CAT SCAN - CT HEAD/BRAIN [...] Rehana Burris D.O. CAT SCAN - CT ABD [...] s fracture or dislocation. Impression By: [email or web address] Rehana Burris D.O. CAT SCAN - CT CHEST [...] she is neurovascularly intact. Time of Re-Eval 230 Re-Eval Status Improved ED Course Medication(s) Ordered [...] Poon MD n 08/05/20 at 2301 RPT #:[id number] END OF REPORT 2019-02-28 21:13:00-00:00 [facility] ([facility]) EMERGENCY PROVIDER REPORT REPORT#:[id number] REPORT STATUS: Signed DATE:02/28/19 TIME: 2112 PATIENT: LONA MARIE UNIT #: [id number] ROOM/BED: AGE: 28 SEX: F PCP PHYS: Akiko Awad MD SERVICE AUTHOR: Cheyenne Pearson MD * ALL edits or amendments must be made on the [employer]/computer document * HPI- Female General Confirmed Patient Yes Initial Greet Date/Time 02/28/192104 PCP Dr. Perkins-surgeon @[facility] Presentation Chief Complaint Abdominal pain Hx [...] occurred earlier today. Pt reports presenting to [facility] multiple times since 08/22/2018 f [...] she states she would not return to [facility]. Pt reports persisting vaginal bleeding, nausea, [...] (Auto) (14.0 - 32.0 %) 10.[address] [place] % (Auto) (4.8 - 9.0 %) 4.6 L Eos % (Auto) (0.3 - 3.7 %) 0.0 L Baso % (Auto) (0.0 - 2.0 %) 0.1 Neut # (Auto) (2.0 - 7.6 x10 3/uL) 7.31 Lymph # (Auto) (1.0 - 3.8 x10 3/uL) 0.[address] [place] # (Auto) (0.1 - 0.8 x10 3/uL) [...] pH (5.0 - 7.0) 6.0 Ur Specific [place] (1.005 - 1.030) 1.002 L Urine Protein [...] 2235 Report Impression - Status: SIGNED Entered: 02/28/2019 8310 IMPRESSION: 1. No acute CT abnormalities of [...] patient for cont inuity of care to [facility] as that is where pt's surgeon [...] with: Specialty physician (Dr. Parris amor) Receiving [facility] Transfer Accepted Yes Accepted by: Dr. Parris [...] MD on 0 03/04/19 at 1509 RPT #:[id number] END OF REPORT 2019-01-25 14:38:00-00:00 [facility] ([facility]) EMERGENCY PROVIDER REPORT REPORT#:[id number] REPORT STATUS: Signed DATE:01/25/19 TIME: 1438 PATIENT: LONA MARIE UNIT #: [id number] ROOM/BED: AGE: 28 SEX: F PCP PHYS: Akiko Awad MD SERVICE AUTHOR: Carolyn Dodson * ALL edits or amendments must be made on the [employer]/computer document * HPI- Female General Confirmed Patient Yes Initial Greet Date/Time 01/25/19 1413 Presentation Chief Complaint Pelvic pain, Vaginal bleeding Hx Obtained From Patient )( Sudden in Onset? No Free Text HPI Notes Free Text HPI Notes 28yo F with PCOS presents to ED with 5 months of vaginal bleeding and worsening cramps. Seen by [employer] with US 2 weeks ago showing PCOS [...] (Auto) (14.0 - 32.0 %) 33.[address] [place] % (Auto) (4.8 - 9.0 %) 6.9 Eos % (Auto) (0.3 - 3.7 %) 0.7 Baso % (Auto) (0.0 - 2.0 %) 0.8 Neut # (Auto) (2.0 - 7.6 x10 3/uL) 4.30 Lymph # (Auto) (1.0 - 3.8 x10 3/uL) 2.44 [place] # (Auto) (0.1 - 0.8 x10 3/uL) [...] Discussed labs and imaging. Recommended f/u with [employer] for management ED Course Medication(s) Ordered Medication(s) [...] 01/25 1414 Pulse 70 01/25 1414 Resp 01/25 1414 All vital signs available at [...] to ED Prescriptions None at 1652 RPT #:[id number] END OF REPORT 2019-01-25 14:38:00-00:00 [facility] ([facility]) EMERGENCY PROVIDER REPORT REPORT#:[id number] REPORT STATUS: Signed DATE:01/25/19 TIME: 1437 PATIENT: LONA MARIE UNIT #: [id number] ROOM/BED: AGE: 28 SEX: F PCP PHYS: Akiko Awad MD SERVICE AUTHOR: Carolyn Dodson * ALL edits or amendments must be made on the [employer]/computer document * Carolyn Dodson 01/25/19 1438: HPI- Female General Confirmed Patient Yes Presentation Chief Complaint Pelvic pain, Vaginal bleeding Hx Obtained From Patient )( Sudden in Onset? No Free Text HPI Notes Free Text HPI Notes 28yo F with PCOS presents to ED with 5 months of vaginal bleeding and worsening cramps. Seen by [employer] with US 2 weeks ago showing PCOS [...] (Auto) (14.0 - 32.0 %) 33.[address] [place] % (Auto) (4.8 - 9.0 %) 6.9 Eos % (Auto) (0.3 - 3.7 %) 0.7 Baso % (Auto) (0.0 - 2.0 %) 0.8 Neut # (Auto) (2.0 - 7.6 x10 3/uL) 4.30 Lymph # (Auto) (1.0 - 3.8 x10 3/uL) 2.44 [place] # (Auto) (0.1 - 0.8 x10 3/uL) [...] ULTRASOUND - US TRANSVAGINAL NON OB 01/25 9276 Report Impression - Status: SIGNED Entered: 01/25/2019 8228 IMPRESSION: 1. 3 mm endometrium without focal [...] intrauterine or extrauterine gestation. Impression By: Kailyn Ramírze M.D. Lab Imaging Statement Laboratory radiographic studies [...] Discussed labs and imaging. Recommended f/u with [employer] for management ED Course Medication(s) Ordered Medication(s) [...] Delivery Room air 01/25 1414 Temp 36.8 05/22 1414 Pulse 70 01/25 1414 Resp 16 [...] Saw Pt Alone I have reviewed the PA/CLINICAL INFORMATICS DIRECTOR's note and plan of car e. I was available for consultation as needed at al l times during the patient's visit in the emergency department. I agree with the clinical impression , plan and disposition. at 1652 Electronically Signed by Andrew Wyatt MD on at 9661 RPT #:[id number] END OF REPORT
[2023-03-07] MEDS ORDERED: DIPHENHYDRAMINE 50 MG/ML VIAL ONE (05:19)
[2023-03-07] MEDS ORDERED: ACETAMINOPHEN 500 MG TAB ONE (05:19)
[2023-03-07] MEDS ORDERED: MORPHINE 4 MG/ML SYR ONE ×2 (05:20→06:49)
[2023-03-07] MEDS ORDERED: ONDANSETRON 4 MG/2 ML VIAL ONE (05:20)
[2023-03-07] MEDS ORDERED: NA CHLORIDE 0.9% 500 ML ONE (05:20)
[2023-03-07] MEDS ORDERED: LORazepam 2 MG/ML VIAL ONE (05:20)
--- NOTE | 2023-03-07 06:03 | ER ---
Nurse's Notes [facility] Name: Lona Marie Age: 32 yrs Sex: Female : 1990 Arrival Date: 03/07/2023 Time: 04:25 Bed 15 Private MD: Diagnosis: Migraine without aura, intractable;Anxiety disorder, unspecified Presentation: 03/07 04:37 Chief complaint: Patient states: migraine that started on 03/03 and was seen but pt has as6 not been able to fill her prescriptions and has not been able to sleep due to the pain. Coronavirus screen: At this time, the client does not indicate any symptoms associated with coronavirus-19. Ebola Screen: No symptoms or risks identified at this time. Initial Sepsis Screen: Does the patient meet any 2 criteria? No. Patient's initial sepsis screen is negative. Does the patient have a suspected source of infection? No. Patient's initial sepsis screen is negative. Risk Assessment: Do you want to hurt yourself or someone else? Patient reports no desire to harm self or others. Onset of symptoms was March 03, 2023. 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 - Social history:: Smoking status: Patient reports the use of cigarette tobacco products, denies chronic smoking, but will smoke occasionally. - Family history:: not pertinent. Screenin:42 [facility] ED Fall Risk Assessment (Adult) History of falling in the last 3 months, ll3 including since admission No falls in past 3 months (0 pts) Confusion or Disorientation No (0 pts) Intoxicated or Sedated No (0 pts) Impaired Gait No (0 pts) Mobility Assist Device Used No (0 pt) Altered Elimination No (0 pt) Score/Fall Risk Level 0 - 2 = Low Risk Oriented to surroundings, Maintained a safe environment, Educated pt \\T\\ family on fall prevention, incl call for assistance when getting out of bed. Abuse screen: Denies threats or abuse. Denies injuries from another. Nutritional screening: No deficits noted. Tuberculosis screening: No symptoms or risk factors identified. Assessment: 06:18 General: Appears uncomfortable, Behavior is calm, cooperative. Pain: Complains of pain ll3 in H/A Pain does not radiate. Pain currently is 8 out of 10 on a pain scale. at worst was 10 out of 10 on a pain scale. Pain began Wednesday. Neuro: Level of Consciousness is awake, alert, obeys commands, Oriented to person, place, time, situation, Reports headache that is the "worst ever", since Wednesday. Respiratory: Respiratory effort is even, unlabored, Respiratory pattern is regular, symmetrical. Derm: Skin is pink, warm \\T\\ dry. Vital Signs: 04:37 BP 132 / 94; Pulse 78; Resp 18 S; Temp 99(O); Pulse Ox 99% on R/A; Weight 68.04 kg (R); as6 Height 5 ft. 3 in. (R); Pain 8/10; 07:24 BP 126 / 78; Pulse 72; Resp 18; Pulse Ox 99% ; ko1 04:37 Body Mass Index 26.57 (68.04 kg, 160.02 cm) as6 04:37 Pain Scale: Adult as6 ED Course: 04:29 Patient arrived in ED. ja2 04:42 Triage completed. as6 04:43 Arm band placed on. as6 04:50 Oleg Schultz MD is Attending Physician. sp4 05:42 Inserted saline lock: 20 gauge in left antecubital area, using aseptic technique. ll3 Missed attempt(s): 20 gauge in right antecubital area. 05:43 Patient has correct armband on for positive identification. Bed in low position. Call ll3 light in reach. Side rails up X 1. 07:03 Jess Magaña, RN is Primary Nurse. ko1 07:24 No provider procedures requiring assistance completed. IV discontinued, intact, ko1 bleeding controlled, No redness/swelling at site. Pressure dressing applied. Administered Medications: 05:41 Drug: diphenhydrAMINE IVP 25 mg Route: IVP; Site: left antecubital; ll3 06:48 Follow up: Response: No adverse reaction; No change in condition ll3 05:41 Drug: Acetaminophen PO 1000 mg Route: PO; ll3 06:48 Follow up: Response: No adverse reaction; No change in condition ll3 05:41 Drug: NS 0.9% IV 500 ml Route: IV; Rate: bolus; Site: left antecubital; ll3 06:48 Follow up: Response: No adverse reaction; IV Status: Completed infusion; IV Intake: ll3 500ml 05:42 Drug: morphine IVP or IV 4 mg Route: IVP; Infused Over: 4 mins; Site: left antecubital; ll3 06:47 Follow up: Response: No adverse reaction; No change in condition ll3 05:42 Drug: Ativan IVP 1 mg Route: IVP; Site: left antecubital; ll3 06:48 Follow up: Response: No adverse reaction; No change in condition ll3 05:42 Drug: Ondansetron IVP 4 mg Route: IVP; Site: left antecubital; ll3 06:48 Follow up: Response: No adverse reaction; No change in condition ll3 06:47 Drug: morphine IVP or IV 4 mg Route: IVP; Infused Over: 4 mins; Site: left antecubital; ll3 07:26 Follow up: Response: No adverse reaction ko1 06:47 Drug: Ibuprofen PO 600 mg Route: PO; ll3 07:26 Follow up: Response: No adverse reaction ko1 Medication: 05:43 VIS not applicable for this client. ll3 Intake: 06:48 IV: 500ml; Total: 500ml. ll3 Outcome: 06:02 Discharge ordered by spOctavio 07:24 Discharged to home ambulatory, with family. ko1 07:24 Condition: improved 07:24 Discharge instructions given to patient, Instructed on discharge instructions, follow up and referral plans. medication usage, Demonstrated understanding of instructions, follow-up care, medications, Prescriptions given X 2. 07:28 Patient left the ED. ko1 Signatures: Salud Robins Ashby RN RN as6 José Antonio Bullard RN RN ll3 Jess Magaña RN RN ko1 Oleg Schultz MD MD sp4
--- NOTE | 2023-03-07 06:03 | EDPHYS ---
Physician Documentation [facility] Name: Lona Marie Age: 32 yrs Sex: Female : 1990 Arrival Date: 03/07/2023 Time: 04:25 Bed 15 Private MD: ED Physician Oleg Schultz HPI: 03/07 04:51 This 32 yrs old Female presents to ER via Ambulatory with complaints of sp4 headache . 05:02 32-year-old female presents with worsening migraine headache since Wednesday 4 days ago sp4 . Patient states she has chronic migraine headaches also history of seizures, history of other several medical problems and history of multiple allergies which does include Reglan and Toradol. Patient states headache global and is worsening. . 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 - Social history:: Smoking status: Patient reports the use of cigarette tobacco products, denies chronic smoking, but will smoke occasionally. - Family history:: not pertinent. ROS: 05:02 Constitutional: Negative for fever, chills, and weight loss, Eyes: Negative for injury, sp4 pain, redness, and discharge, Neuro: Negative for weakness, numbness, tingling, and seizure, positive for headache, positive for chronic migraines 05:02 All other systems are negative. Exam: 05:02 Constitutional: This is a well developed, well nourished patient who is awake, alert, sp4 and in no acute distress. Head/Face: Normocephalic, atraumatic. Eyes: Pupils equal round and reactive to light, extra-ocular motions intact. Lids and lashes normal. Conjunctiva and sclera are not injected. Cornea within normal limits. Periorbital areas with no swelling, redness, or edema. ENT: Nares patent. No nasal discharge, no septal abnormalities noted. Tympanic membranes are normal and external auditory canals are clear. Oropharynx with no redness, swelling, or masses, exudates, or evidence of obstruction, uvula midline. Mucous membranes moist. Neck: Trachea midline, no thyromegaly or masses palpated, and no cervical lymphadenopathy. Supple, full range of motion without nuchal rigidity, or vertebral point tenderness. Chest/axilla: Normal chest wall appearance and motion. Nontender with no deformity. No lesions are appreciated. Cardiovascular: Regular rate and rhythm with a normal S1 and S2. No gallops, murmurs, or rubs. Normal PMI, no JVD. No pulse deficits. Respiratory: Lungs have equal breath sounds bilaterally, clear to auscultation and percussion. No rales, rhonchi or wheezes noted. No increased work of breathing, no retractions or nasal flaring. Abdomen/GI: Soft, non-tender, with normal bowel sounds. No distension or tympany. No guarding or rebound. No evidence of tenderness throughout. Back: No spinal tenderness. No costovertebral tenderness. Skin: Warm, dry with normal turgor. Normal color with no rashes, no lesions, and no evidence of cellulitis. MS/ Extremity: Pulses equal, no cyanosis. Neurovascular intact. Full, normal range of motion. Neuro: Awake and alert, GCS 15, oriented to person, place, time, and situation. Cranial nerves II-XII grossly intact. Motor strength 5/5 in all extremities. Sensory grossly intact. Psych: Awake, alert, with orientation to person, place and time. Behavior, mood, and affect are within normal limits Vital Signs: 04:37 BP 132 / 94; Pulse 78; Resp 18 S; Temp 99(O); Pulse Ox 99% on R/A; Weight 68.04 kg (R); as6 Height 5 ft. 3 in. (R); Pain 8/10; 07:24 BP 126 / 78; Pulse 72; Resp 18; Pulse Ox 99% ; ko1 04:37 Body Mass Index 26.57 (68.04 kg, 160.02 cm) as6 04:37 Pain Scale: Adult as6 MDM: 04:53 Patient medically screened. sp4 05:02 Differential Diagnosis Migraine headache, tension headache, cluster headache, stress sp4 related headache. Data reviewed: vital signs, nurses notes, old medical records, lab test result(s), Beta HCG: Negative. 05:59 Consideration of Admission/Observation Escalation of care including sp4 admission/observation considered. ED course: Patient has obtained significant relief from medications. Patient is feeling much improved and states she is ready to go home. Will prescribe p.o. Fioricet and lorazepam as needed for headache and anxiety. Patient was stable for discharge. . 03/07 05:02 Order name: Saline Lock; Complete Time: 05:42 sp4 Administered Medications: 05:41 Drug: diphenhydrAMINE IVP 25 mg Route: IVP; Site: left antecubital; ll3 06:48 Follow up: Response: No adverse reaction; No change in condition ll3 05:41 Drug: Acetaminophen PO 1000 mg Route: PO; ll3 06:48 Follow up: Response: No adverse reaction; No change in condition ll3 05:41 Drug: NS 0.9% IV 500 ml Route: IV; Rate: bolus; Site: left antecubital; ll3 06:48 Follow up: Response: No adverse reaction; IV Status: Completed infusion; IV Intake: ll3 500ml 05:42 Drug: morphine IVP or IV 4 mg Route: IVP; Infused Over: 4 mins; Site: left antecubital; ll3 06:47 Follow up: Response: No adverse reaction; No change in condition ll3 05:42 Drug: Ativan IVP 1 mg Route: IVP; Site: left antecubital; ll3 06:48 Follow up: Response: No adverse reaction; No change in condition ll3 05:42 Drug: Ondansetron IVP 4 mg Route: IVP; Site: left antecubital; ll3 06:48 Follow up: Response: No adverse reaction; No change in condition ll3 06:47 Drug: morphine IVP or IV 4 mg Route: IVP; Infused Over: 4 mins; Site: left antecubital; ll3 07:26 Follow up: Response: No adverse reaction ko1 06:47 Drug: Ibuprofen PO 600 mg Route: PO; ll3 07:26 Follow up: Response: No adverse reaction ko1 Disposition Summary: 03/07/23 06:02 Discharge Ordered Location: Home sp4 Problem: new sp4 Symptoms: have improved sp4 Condition: Fair sp4 Diagnosis - Migraine without aura, intractable sp4 - Anxiety disorder, unspecified sp4 Followup: sp4 - With: Private Physician - When: 5 - 6 days - Reason: Recheck today's complaints Discharge Instructions: - Discharge Summary Sheet sp4 - Chronic Migraine Headache, [id number] sp4 Forms: - Medication Reconciliation Form ko1 - [email or web address] sp4 Prescriptions: - Fioricet 50-300-40 mg Oral capsule - take 1 capsule by ORAL route every 8 hours PRN Migraines; 30 capsule; Refills: sp4 0, Product Selection Permitted - lorazepam 1 mg Oral tablet - take 1 tablet by ORAL route once daily PRN panic / anxiety; 12 tablet; Refills: sp4 0, Product Selection Permitted Signatures: Dispatcher [employer] Malik Sands RN RN as6 José Antonio Bullard RN RN ll3 Oleg Schultz MD MD sp4 Jess Magaña RN ko1
[2023-03-07] MEDS ORDERED: IBUPROFEN 400 MG TAB ONE (06:50)
[2023-03-07] MEDS ORDERED: IBUPROFEN 200 MG TAB PO ONE (06:50)
[2023-03-07 07:34] VITALS: TEMP 99; O2SAT 99
[2023-03-07 07:36] VITALS: BP 126/78
== END 2023-03-07 07:28 | disposition home or self-care (01) ==
LOC: ER 04:25
DX: G43.019 Migraine without aura, intractable, without status migrainosus (principal); F41.9 Anxiety disorder, unspecified; F17.210 Nicotine dependence, cigarettes, uncomplicated; Z88.0 Allergy status to penicillin; Z88.1 Allergy status to other antibiotic agents; Z88.5 Allergy status to narcotic agent; Z88.8 Allergy status to other drugs, medicaments and biological substances; Z91.048 Other nonmedicinal substance allergy status
CPT/HCPCS: 96361; 96375; 96374; 99284; J1200; J2405; J7040

== ENCOUNTER 2023-03-11 14:01 | Emergency (ER) | payer OTHER ==
--- OUTSIDE RECORDS SUMMARY | 2023-03-11 14:25 | XMS REPORT | Continuity of Care Document ---
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 tablet in the evening. valACYclovi 2022-0 Yes [id number] 1g Take 1 Univers r 1 gram 4-21 tablet by ity of tablet 00:00: mouth in [place] 00 the Medical morning Branch and 1 tablet at noon and 1 tablet in the evening. valACYclovi 3-0 Yes [id number] 1g Take 1 Univers r 1 gram 4-21 tablet by ity of tablet 00:00: mouth in [place] 00 the Medical morning Branch and 1 tablet at noon and 1 tablet in the evening. valACYclovi 3-0 Yes [id number] 1g Take 1 Univers r 1 gram 4-21 tablet by ity of tablet 00:00: mouth in [place] 00 the Medical morning Branch and 1 tablet at noon and 1 tablet in the evening. valACYclovi 2023-0 Yes [id number] 1g Take 1 Univers r 1 gram 4-21 tablet by ity of tablet 00:00: mouth in [place] 00 the Medical morning Branch and 1 tablet at noon and 1 tablet in the evening. valACYclovi 2023-0 Yes [id number] 1g Take 1 Univers r 1 gram 4-21 tablet by ity of tablet 00:00: mouth in [place] 00 the [facility] morning [place] and 1 tablet at noon and 1 tablet in the evening. valACYclovi Yes [id number] 1g Take 1 Univers r 1 gram 4-21 tablet by ity of tablet 00:00: mouth in [place] 00 the [facility] and 1 tablet at noon and 1 tablet in the evening. valACYclovi Yes [id number] 1g Take 1 Univers r 1 gram 4-21 tablet by ity of tablet 00:00: mouth in [place] 00 the [facility] and 1 tablet at noon and 1 tablet in the evening. valACYclovi 2022- No [id number] 1g Take 1 Univers r 1 gram 4-21 05-12 tablet by ity o f tablet 00:00: 00:00 mouth in [place] 00 :00 the [facility] and 1 tablet at noon and 1 tablet in the evening. valACYclovi 2022- Yes [id number] 1g Take 1 Univers r 1 gram 4-21 -29 tablet by ity o f tablet 00:00: 04:59 mouth in [place] 00 :00 the [facility] and 1 tablet at noon and 1 tablet in the evening. Do all this for 7 days. valACYclovi 2022- No [id number] 1g Take 1 Univers r 1 gram 4-21 04-21 tablet by ity o f tablet 00:00: 00:00 mouth in [place] 00 :00 the [facility] and 1 tablet at noon and 1 tablet in the evening. Do all this for 7 days. levETIRAcet Yes TWICE Unive rs am 500 mg 4-18 DAILY. ity of tablet 09:12: [address] gabapentin Yes gabapentin U nivers 300 mg 4-18 300 mg ity of capsule 09:12: capsule [address] famotidine Yes famotidine U nivers 20 mg 4-18 20 mg ity of tablet 09:12: tablet [address] clonazePAM 2022- Yes clonazepam U nivers 0.5 mg 4-18 0.5 mg ity of tablet 09:12: tablet [place] [address] TAKE 1 Medical TABLET BY Branch MOUTH EVERY DAY AT BEDTIME NEEDED FOR SEVERE ANXIETY/PA STACEY ATTACK buPROPion Yes 300mg Take 1 Unive rs XL 300 mg 4-18 tablet by ity o f 24 hr 09:12: mouth. [place] tablet 14 [facility] buprenorphi Yes [place] Uni vers ne HCL [...] mg 4-18 DAILY. ity of tablet 09:12: [address] gabapentin Yes gabapentin U nivers 300 mg 4-18 300 mg ity of capsule 09:12: capsule [address] famotidine Yes famotidine U nivers 20 mg 4-18 20 mg ity of tablet 09:12: tablet [address] clonazePAM Yes clonazepam U nivers 0.5 mg 4-18 0.5 mg ity of tablet 09:12: tablet [place] [address] TAKE 1 Medical TABLET BY Branch MOUTH EVERY DAY AT BEDTIME NEEDED FOR SEVERE ANXIETY/PA STACEY ATTACK buPROPion Yes 300mg Take 1 Unive rs XL 300 mg 4-18 tablet by ity o f 24 hr 09:12: mouth. [place] tablet 14 [facility] buprenorphi Yes [place] Uni vers ne HCL [...] mg 4-18 DAILY. ity of tablet 09:12: [address] gabapentin Yes gabapentin U nivers 300 mg 4-18 300 mg ity of capsule 09:12: capsule [address] famotidine Yes famotidine U nivers 20 mg 4-18 20 mg ity of tablet 09:12: tablet [address] clonazePAM Yes clonazepam U nivers 0.5 mg 4-18 0.5 mg ity of tablet 09:12: tablet [place] [address] TAKE 1 Medical TABLET BY Branch MOUTH EVERY DAY AT BEDTIME NEEDED FOR SEVERE ANXIETY/PA STACEY ATTACK buPROPion Yes 300mg Take 1 Unive rs XL 300 mg 4-18 tablet by ity o f 24 hr 09:12: mouth. [address] buprenorphi Yes [place] Uni vers [...] mg 4-18 DAILY. ity of tablet 09:12: [address] gabapentin Yes gabapentin U nivers 300 mg 4-18 300 mg ity of capsule 09:12: capsule [address] famotidine Yes famotidine U nivers 20 mg 4-18 20 mg ity of tablet 09:12: tablet [address] clonazePAM 0 Yes clonazepam U nivers 0.5 mg 4-18 0.5 mg ity of tablet 09:12: tablet [place] 14 TAKE 1 Medical TABLET BY Branch MOUTH EVERY DAY AT BEDTIME NEEDED FOR SEVERE ANXIETY/PA STACEY ATTACK buPROPion 0 Yes 300mg Take 1 Unive rs XL 300 mg 4-18 tablet by ity o f 24 hr 09:12: mouth. [place] tablet [address] [place] [address] buprenorphi Yes [place] [facility] vers ne HCL [...] [place] Branch aerosol inhaler levETIRAcet Yes TWICE Unive rs am 500 mg 4-18 DAILY. ity of tablet 09:12: [address] gabapentin Yes gabapentin U nivers 300 mg 4-18 300 mg ity of capsule 09:12: capsule [address] famotidine Yes famotidine U nivers 20 mg 4-18 20 mg ity of tablet 09:12: tablet [address] clonazePAM 2022-0 Yes clonazepam U nivers 0.5 mg 4-18 0.5 mg ity of tablet 09:12: tablet [place] 14 TAKE 1 Medical TABLET BY Branch MOUTH EVERY DAY AT BEDTIME NEEDED FOR SEVERE ANXIETY/PA STACEY ATTACK buPROPion 2022-0 Yes 300mg Take 1 Unive rs XL 300 mg 4-18 tablet by ity o f 24 hr 09:12: mouth. [place] tablet 14 [facility] buprenorphi Yes [place] Uni vers ne HCL [...] mg 4-18 DAILY. ity of tablet 09:12: [address] gabapentin Yes gabapentin U nivers 300 mg 4-18 300 mg ity of capsule 09:12: capsule [address] famotidine Yes famotidine U nivers 20 mg 4-18 20 mg ity of tablet 09:12: tablet [address] clonazePAM 0 Yes clonazepam U nivers 0.5 mg 4-18 0.5 mg ity of tablet 09:12: tablet [place] [address] TAKE 1 Medical TABLET BY Branch MOUTH EVERY DAY AT BEDTIME NEEDED FOR SEVERE ANXIETY/PA STACEY ATTACK buPROPion 0 Yes 300mg Take 1 Unive rs XL 300 mg 4-18 tablet by ity o f 24 hr 09:12: mouth. [place] tablet [address] [place] [address] buprenorphi Yes [place] Uni vers ne HCL [...] mg 4-18 DAILY. ity of tablet 09:12: [address] gabapentin 0 Yes gabapentin U nivers 300 mg 4-18 300 mg ity of capsule 09:12: capsule [address] famotidine 2022-0 Yes famotidine U nivers 20 mg 4-18 20 mg ity of tablet 09:12: tablet [address] clonazePAM 2022-0 Yes clonazepam U nivers 0.5 mg 4-18 0.5 mg ity of tablet 09:12: tablet [place] 14 TAKE 1 Medical TABLET BY Branch MOUTH EVERY DAY AT BEDTIME NEEDED FOR SEVERE ANXIETY/PA STACEY ATTACK buPROPion 2022-0 Yes 300mg Take 1 Unive rs XL 300 mg 4-18 tablet by ity o f 24 hr 09:12: mouth. [place] [facility] 14 [facility] buprenorphi Yes [place] Uni vers ne HCL [...] mg 4-18 DAILY. ity of tablet 09:12: [address] gabapentin 2022-0 Yes gabapentin U nivers 300 mg 4-18 300 mg ity of capsule 09:12: capsule [address] famotidine 2022-0 Yes famotidine U nivers 20 mg 4-18 20 mg ity of tablet 09:12: tablet [address] clonazePAM 2022-0 Yes clonazepam U nivers 0.5 mg 4-18 0.5 mg ity of tablet 09:12: tablet [place] 14 TAKE 1 Medical TABLET BY Branch MOUTH EVERY DAY AT BEDTIME NEEDED FOR SEVERE ANXIETY/PA STACEY ATTACK buPROPion Yes 300mg Take 1 Unive rs XL 300 mg 4-18 tablet by ity o f 24 hr 09:12: mouth. [place] tablet 14 [facility] buprenorphi Yes [place] Uni vers ne HCL [...] mg 4-18 DAILY. ity of tablet 09:12: [address] gabapentin Yes gabapentin U nivers 300 mg 4-18 300 mg ity of capsule 09:12: capsule [address] famotidine 0 Yes famotidine U nivers 20 mg 4-18 20 mg ity of tablet 09:12: tablet [address] clonazePAM 0 Yes clonazepam U nivers 0.5 mg 4-18 0.5 mg ity of tablet 09:12: tablet [place] [address] TAKE 1 Medical TABLET BY Branch MOUTH EVERY DAY AT BEDTIME NEEDED FOR SEVERE ANXIETY/PA STACEY ATTACK buPROPion 0 Yes 300mg Take 1 Unive rs XL 300 mg 4-18 tablet by ity o f 24 hr 09:12: mouth. [place] tablet 14 [facility] buprenorphi Yes [place] Uni vers ne HCL [...] mg 4-18 DAILY. ity of tablet 09:12: [address] gabapentin Yes gabapentin U nivers 300 mg 4-18 300 mg ity of capsule 09:12: capsule [address] famotidine Yes famotidine U nivers 20 mg 4-18 20 mg ity of tablet 09:12: tablet [address] clonazePAM Yes clonazepam U nivers 0.5 mg 4-18 0.5 mg ity of tablet 09:12: tablet [place] [address] TAKE 1 Medical TABLET BY Branch MOUTH EVERY DAY AT BEDTIME NEEDED FOR SEVERE ANXIETY/PA STACEY ATTACK buPROPion Yes 300mg Take 1 Unive rs XL 300 mg 4-18 tablet by ity o f 24 hr 09:12: mouth. [address] buprenorphi Yes [place] Uni vers [...] mg 4-18 DAILY. ity of tablet 09:12: [address] gabapentin Yes gabapentin U nivers 300 mg 4-18 300 mg ity of capsule 09:12: capsule [address] famotidine 2022-0 Yes famotidine U nivers 20 mg 4-18 20 mg ity of tablet 09:12: tablet [address] clonazePAM 2022-0 Yes clonazepam U nivers 0.5 mg 4-18 0.5 mg ity of tablet 09:12: tablet [place] 14 TAKE 1 Medical TABLET BY Branch MOUTH EVERY DAY AT BEDTIME NEEDED FOR SEVERE ANXIETY/PA STACEY ATTACK buPROPion 0 Yes 300mg Take 1 Unive rs XL 300 mg 4-18 tablet by ity o f 24 hr 09:12: mouth. [place] tablet 14 [facility] buprenorphi Yes [place] Uni vers ne HCL [...] mg 4-18 DAILY. ity of tablet 09:12: [address] gabapentin 2022-0 Yes gabapentin U nivers 300 mg 4-18 300 mg ity of capsule 09:12: capsule [address] famotidine 2022-0 Yes famotidine U nivers 20 mg 4-18 20 mg ity of tablet 09:12: tablet [address] clonazePAM 2022-0 Yes clonazepam U nivers 0.5 mg 4-18 0.5 mg ity of tablet 09:12: tablet [place] [address] TAKE 1 Medical TABLET BY Branch MOUTH EVERY DAY AT BEDTIME NEEDED FOR SEVERE ANXIETY/PA STACEY ATTACK buPROPion 2022-0 Yes 300mg Take 1 Unive rs XL 300 mg 4-18 tablet by ity o f 24 hr 09:12: mouth. [place] tablet [address] [place] [address] buprenorphi Yes [place] Uni vers ne HCL [...] mg 4-18 DAILY. ity of tablet 09:12: [address] gabapentin Yes gabapentin U nivers 300 mg 4-18 300 mg ity of capsule 09:12: capsule [address] famotidine Yes famotidine U nivers 20 mg 4-18 20 mg ity of tablet 09:12: tablet [address] clonazePAM Yes clonazepam U nivers 0.5 mg 4-18 0.5 mg ity of tablet 09:12: tablet [place] [address] TAKE 1 Medical TABLET BY Branch MOUTH [...] mg 4-18 DAILY. ity of tablet 09:12: [address] gabapentin 0 Yes gabapentin U nivers 300 mg 4-18 300 mg ity of capsule 09:12: capsule [address] famotidine 2022-0 Yes famotidine U nivers 20 mg 4-18 20 mg ity of tablet 09:12: tablet [address] clonazePAM 2022-0 Yes clonazepam U nivers 0.5 mg 4-18 0.5 mg ity of tablet 09:12: tablet [place] 14 TAKE 1 Medical TABLET BY Branch [...] mg 4-18 DAILY. ity of tablet 09:12: [address] gabapentin Yes gabapentin U nivers 300 mg 4-18 300 mg ity of capsule 09:12: capsule [address] famotidine 2022-0 Yes famotidine U nivers 20 mg 4-18 20 mg ity of tablet 09:12: tablet [address] clonazePAM 2022-0 Yes clonazepam U nivers 0.5 mg 4-18 0.5 mg ity of tablet 09:12: tablet [place] 14 TAKE 1 Medical TABLET BY Branch [...] mg 4-18 DAILY. ity of tablet 09:12: [address] gabapentin Yes gabapentin U nivers 300 mg 4-18 300 mg ity of capsule 09:12: capsule [address] famotidine Yes famotidine U nivers 20 mg 4-18 20 mg ity of tablet 09:12: tablet [address] clonazePAM Yes clonazepam U nivers 0.5 mg 4-18 0.5 mg ity of tablet 09:12: tablet [place] [address] TAKE 1 Medical TABLET BY Branch MOUTH [...] 12/19/22 at 0530, Routine iopamidol 2022- No [id number] 99mL 99 mL, U nivers (ISOVUE 12-19-15 [...] 800 mg ity of tablet 10:43: tablet [place] [address] Medical Branch adalimumab Yes 40mg inject 1 [...] 800 mg ity of tablet 10:43: tablet [place] [address] Medical Branch adalimumab 2022-0 Yes 40mg inject 1 Uni vers (HUMIRA) 40 4-11 Syringe ity o f mg/0.8 mL 10:43: under the [place] injection 17 skin. Medical Branch ibuprofen Yes ibuprofen Uni vers 800 mg 4-11 800 mg ity of tablet 10:43: tablet [place] [address] Medical Branch adalimumab 2022-0 Yes 40mg inject [...] 15 mg 3-30 ity of tablet 00:00: [place] [facility] Branch HYDROcodone 2023-0 Yes 1{tbl} Take 1 Un travis -acetaminop 3-30 tablet by ity of hen 5-325 00:00: mouth 4 [place] mg tablet 00 ([facility] times [place] daily. pregabalin 2023-0 Yes 150mg Take 1 Univ ers 150 mg 3-30 capsule by ity of capsule 00:00: mouth in [place] [address] the [facility] morning Branch and 1 capsule in the evening. meloxicam 2023-0 Yes Univers 15 mg 3-30 ity of tablet 00:00: [address] Branch HYDROcodone 2023-0 Yes 1{tbl} Take 1 Un travis -acetaminop 3-30 tablet by ity of hen 5-325 00:00: mouth 4 [place] mg tablet ([facility] times [place] daily. pregabalin 2023-0 Yes 150mg Take 1 Univ ers 150 mg 3-30 capsule by ity of capsule 00:00: mouth in [place] [address] the [facility] morning Branch and 1 capsule in the evening. meloxicam 2023-0 Yes Univers 15 mg 3-30 ity of tablet 00:00: [address] Branch HYDROcodone 2023-0 Yes 1{tbl} Take 1 Un travis -acetaminop 3-30 tablet by ity of hen 5-325 00:00: mouth 4 [place] mg tablet ([facility] times [place] daily. pregabalin 2023-0 Yes 150mg Take 1 Univ ers 150 mg 3-30 capsule by ity of capsule 00:00: mouth in [place] [address] the [facility] morning Branch and 1 capsule in the evening. meloxicam 2023-0 Yes Univers 15 mg 3-30 ity of tablet 00:00: [address] Branch HYDROcodone 2023-0 Yes 1{tbl} Take 1 Un travis -acetaminop 3-30 tablet by ity of hen 5-325 00:00: mouth 4 [place] mg tablet 00 ([facility] times [place] daily. pregabalin 2023-0 Yes 150mg Take 1 Univ ers 150 mg 3-30 capsule by ity of capsule 00:00: mouth in [place] [address] the [facility] morning Branch and 1 capsule in the evening. meloxicam 2023-0 Yes Univers 15 mg 3-30 ity of tablet 00:00: [place] 00 [facility] Branch HYDROcodone 2023-0 Yes 1{tbl} Take 1 Un travis -acetaminop 3-30 tablet by ity of hen 5-325 00:00: mouth 4 [place] mg tablet 00 ([facility] times [place] daily. pregabalin 2023-0 Yes 150mg Take 1 Univ ers 150 mg 3-30 capsule by ity of capsule 00:00: mouth in [place] 00 the Medical morning Branch and 1 capsule in the evening. meloxicam 2023-0 Yes Univers 15 mg 3-30 ity of tablet 00:00: [place] 00 [facility] Branch HYDROcodone 2023-0 Yes 1{tbl} Take 1 Un travis -acetaminop 3-30 tablet by ity of hen 5-325 00:00: mouth 4 [place] mg tablet ([facility] times [place] daily. pregabalin 2023-0 Yes 150mg Take 1 Univ ers 150 mg 3-30 capsule by ity of capsule 00:00: mouth in [place] the [facility] morning Branch and 1 capsule in the evening. meloxicam 2023-0 Yes Univers 15 mg 3-30 ity of tablet 00:00: [place] [facility] Branch HYDROcodone 2023-0 Yes 1{tbl} Take 1 Un travis -acetaminop 3-30 tablet by ity of hen 5-325 00:00: mouth 4 [place] mg tablet ([facility] times [place] daily. pregabalin 2023-0 Yes 150mg Take 1 Univ ers 150 mg 3-30 capsule by ity of capsule 00:00: mouth in [place] the [facility] morning Branch and 1 capsule in the evening. meloxicam 2023-0 Yes Univers 15 mg 3-30 ity of tablet 00:00: [address] Branch HYDROcodone 2023-0 Yes 1{tbl} Take 1 Un travis -acetaminop 3-30 tablet by ity of hen 5-325 00:00: mouth 4 [place] mg tablet 00 ([facility] times [place] daily. pregabalin 2023-0 Yes 150mg Take 1 Univ ers 150 mg 3-30 capsule by ity of capsule 00:00: mouth in [place] [address] the Medical morning Branch and 1 capsule in the evening. meloxicam 2023-0 Yes Univers 15 mg 3-30 ity of tablet 00:00: [place] [facility] Branch HYDROcodone 2023-0 Yes 1{tbl} Take 1 Un travis -acetaminop 3-30 tablet by ity of hen 5-325 00:00: mouth 4 [place] mg tablet ([facility] times [place] daily. pregabalin 2023-0 Yes 150mg Take 1 Univ ers 150 mg 3-30 capsule by ity of capsule 00:00: mouth in [place] the Medical morning Branch and 1 capsule in the evening. meloxicam 2023-0 Yes Univers 15 mg 3-30 ity of tablet 00:00: [place] [facility] Branch HYDROcodone 2023-0 Yes 1{tbl} Take 1 Un travis -acetaminop 3-30 tablet by ity of hen 5-325 00:00: mouth 4 [place] mg tablet ([facility] times [place] daily. pregabalin 2023-0 Yes 150mg Take 1 Univ ers 150 mg 3-30 capsule by ity of capsule 00:00: mouth in [place] the [facility] morning Branch and 1 capsule in the evening. meloxicam 2023-0 Yes Univers 15 mg 3-30 ity of tablet 00:00: [place] [facility] Branch HYDROcodone 2023-0 Yes 1{tbl} Take 1 Un travis -acetaminop 3-30 tablet by ity of hen 5-325 00:00: mouth 4 [place] mg tablet ([facility] daily. pregabalin 2023-0 Yes 150mg Take 1 Univ ers 150 mg 3-30 capsule by ity of capsule 00:00: mouth in [place] the [facility] morning Branch and 1 capsule in the evening. meloxicam 2023-0 Yes Univers 15 mg 3-30 ity of tablet 00:00: [place] [facility] Branch HYDROcodone 2023-0 Yes 1{tbl} Take 1 Un travis -acetaminop 3-30 tablet by ity of hen 5-325 00:00: mouth 4 [place] mg tablet ([facility] times [place] daily. pregabalin 2023-0 Yes 150mg Take 1 Univ ers 150 mg 3-30 capsule by ity of capsule 00:00: mouth in [place] [address] the Medical morning Branch and 1 capsule in the evening. meloxicam 2023-0 Yes Univers 15 mg 3-30 ity of tablet 00:00: [place] [facility] Branch HYDROcodone 2023-0 Yes 1{tbl} Take 1 Un travis -acetaminop 3-30 tablet by ity of hen 5-325 00:00: mouth 4 [place] mg tablet 00 ([facility] Medical times [place] daily. pregabalin 2023-0 Yes 150mg Take 1 Univ ers 150 mg 3-30 capsule by ity of capsule 00:00: mouth in [place] 00 the Medical morning Branch and 1 capsule in the evening. meloxicam 2023-0 Yes Univers 15 mg 3-30 ity of tablet 00:00: [place] 00 [facility] Branch HYDROcodone 2023-0 Yes 1{tbl} Take 1 Un travis -acetaminop 3-30 tablet by ity of hen 5-325 00:00: mouth 4 [place] mg tablet 00 ([facility]) Medical times [place] daily. pregabalin 2023-0 Yes 150mg Take 1 Univ ers 150 mg 3-30 capsule by ity of capsule 00:00: mouth in [place] [address] the Medical morning Branch and 1 capsule in the evening. meloxicam 2023-0 Yes Univers 15 mg 3-30 ity of tablet 00:00: [place] 00 [facility] Branch HYDROcodone 2023-0 Yes 1{tbl} Take 1 Un travis -acetaminop 3-30 tablet by ity of hen 5-325 00:00: mouth 4 [place] mg tablet 00 ([facility]) Medical times [place] daily. pregabalin 2023-0 Yes 150mg Take 1 Univ ers 150 mg 3-30 capsule by ity of capsule 00:00: mouth in [place] the Medical morning Branch and 1 capsule in the evening. meloxicam 2023-0 Yes Univers 15 mg 3-30 ity of tablet 00:00: [place] [facility] Branch HYDROcodone 2023-0 Yes 1{tbl} Take 1 Un travis -acetaminop 3-30 tablet by ity of hen 5-325 00:00: mouth 4 [place] mg tablet 00 (four) Medical times [place] daily. pregabalin 2023-0 Yes 150mg Take 1 Univ ers 150 mg 3-30 capsule by ity of capsule 00:00: mouth in [place] the Medical morning Branch and 1 capsule in the evening. meloxicam 2023-0 Yes Univers 15 mg 3-30 ity of tablet 00:00: [place] 00 [facility] Branch HYDROcodone 2023-0 Yes 1{tbl} [...] by ity of capsule 00:00: mouth in [place] the Medical morning Branch and 1 capsule in the evening. meloxicam 2023-0 Yes Univers 15 mg 3-30 ity of tablet 00:00: [place] 00 Medical Branch HYDROcodone 2023-0 Yes 1{tbl} Take 1 Un travis -acetaminop 3-30 tablet by ity of hen 5-325 00:00: mouth 4 [place] mg tablet 00 (four) Medical times Branch daily. pregabalin 2023-0 Yes 150mg Take 1 Univ ers 150 mg 3-30 capsule by ity of capsule 00:00: mouth in [place] the Medical morning Branch and 1 capsule in the evening. meloxicam 2023-0 Yes Univers 15 mg 3-30 ity of tablet 00:00: [place] 00 Medical Branch HYDROcodone 2023-0 Yes 1{tbl} Take 1 Un travis -acetaminop 3-30 tablet by ity of hen 5-325 00:00: mouth 4 [place] mg tablet 00 (four) Medical times Branch daily. pregabalin 2023-0 Yes 150mg Take 1 Univ ers 150 mg 3-30 capsule by ity of capsule 00:00: mouth in [place] the Medical morning Branch and 1 capsule in the evening. meloxicam 2023-0 Yes Univers 15 mg 3-30 ity of tablet 00:00: [place] 00 Medical Branch HYDROcodone 2023-0 Yes 1{tbl} Take 1 Un travis -acetaminop 3-30 tablet by ity of hen 5-325 00:00: mouth 4 [place] mg tablet 00 (four) Medical times [place] daily. pregabalin 2023-0 Yes 150mg Take 1 Univ ers 150 mg 3-30 capsule by ity of capsule 00:00: mouth in [place] the Medical morning Branch and 1 capsule in the evening. meloxicam 2023-0 Yes Univers 15 mg 3-30 ity of tablet 00:00: [place] [facility] Branch HYDROcodone 2023-0 Yes 1{tbl} Take 1 Un travis -acetaminop 3-30 tablet by ity of hen 5-325 00:00: mouth 4 [place] mg tablet 00 ([facility] Medical times Branch daily. pregabalin 2023-0 Yes 150mg Take 1 Univ ers 150 mg 3-30 capsule by ity of capsule 00:00: mouth in [place] the [facility] morning Branch and 1 capsule in the evening. meloxicam 2023-0 Yes Univers 15 mg 3-30 ity of tablet 00:00: [place] [facility] Branch HYDROcodone 2023-0 Yes 1{tbl} Take 1 Un travis -acetaminop 3-30 tablet by ity of hen 5-325 00:00: mouth 4 [place] mg tablet ([facility] Medical times [place] daily. pregabalin 2023-0 Yes 150mg Take 1 Univ ers 150 mg 3-30 capsule by ity of capsule 00:00: mouth in [place] the [facility] morning Branch and 1 capsule in the evening. meloxicam 2023-0 Yes Univers 15 mg 3-30 ity of tablet 00:00: [place] [facility] Branch HYDROcodone 2023-0 Yes 1{tbl} Take 1 Un travis -acetaminop 3-30 tablet by ity of hen 5-325 00:00: mouth 4 [place] mg tablet ([facility]) Medical times Branch daily. pregabalin 2023-0 Yes 150mg Take 1 [facility] ers 150 mg 3-30 capsule by ity of capsule 00:00: mouth in [place] the Medical morning Branch and 1 capsule in the evening. meloxicam 2023-0 Yes [facility] 15 mg 3-30 ity of tablet 00:00: [place] [facility] Branch HYDROcodone 2023-0 Yes 1{tbl} Take 1 [facility] -acetaminop 3-30 tablet by ity of hen 5-325 00:00: mouth 4 [place] mg tablet 00 (four) Medical times Branch daily. pregabalin 2023-0 Yes 150mg Take 1 [facility] ers 150 mg 3-30 capsule by ity of capsule 00:00: mouth in [place] the Medical morning Branch and 1 capsule in the evening. meloxicam 2023-0 Yes [facility] 15 mg 3-30 ity of tablet 00:00: [place] [facility] Branch HYDROcodone 2023-0 Yes 1{tbl} Take 1 [facility] -acetaminop 3-30 tablet by ity of hen 5-325 00:00: mouth 4 [place] mg tablet ([facility]) Medical times [place] daily. pregabalin 2023-0 Yes 150mg Take 1 [facility] ers 150 mg 3-30 capsule by ity of capsule 00:00: mouth in [place] the Medical morning Branch and 1 capsule in the evening. meloxicam 2023-0 Yes [facility] 15 mg 3-30 ity of tablet 00:00: [place] [facility] Branch HYDROcodone 2023-0 Yes 1{tbl} Take 1 [facility] -acetaminop 3-30 tablet by ity of hen 5-325 00:00: mouth 4 [place] mg tablet ([facility]) Medical times [place] daily. pregabalin 2023-0 Yes 150mg Take 1 [facility] ers 150 mg 3-30 capsule by ity of capsule 00:00: mouth in [place] the Medical morning Branch and 1 capsule in the evening. meloxicam 2023-0 Yes [facility] 15 mg 3-30 ity of tablet 00:00: [place] [facility] Branch HYDROcodone 2023-0 Yes 1{tbl} Take 1 [facility] -acetaminop 3-30 tablet by ity of hen 5-325 00:00: mouth 4 [place] mg tablet ([facility]) Medical times [place] daily. pregabalin 2023-0 Yes 150mg Take 1 [facility] ers 150 mg 3-30 capsule by ity of capsule 00:00: mouth in [place] the Medical morning Branch and 1 capsule in the evening. meloxicam 2023-0 Yes [facility] 15 mg 3-30 ity of tablet 00:00: [place] [facility] Branch HYDROcodone 2023-0 Yes 1{tbl} Take 1 [facility] -acetaminop 3-30 tablet by ity of hen 5-325 00:00: mouth 4 [place] mg tablet 00 ([facility] Medical times [place] daily. pregabalin 2023-0 Yes 150mg Take 1 [facility] ers 150 mg 3-30 capsule by ity of capsule 00:00: mouth in [place] 00 the Medical morning Branch and 1 capsule in the evening. meloxicam 2023-0 Yes [facility] 15 mg 3-30 ity of tablet 00:00: [place] 00 Medical Branch HYDROcodone 2023-0 Yes 1{tbl} [...] 15 mg 3-30 ity of tablet 00:00: [place] 00 Medical Branch HYDROcodone 2023-0 Yes 1{tbl} Take 1 [facility] -acetaminop 3-30 tablet by ity of hen 5-325 00:00: mouth 4 [place] mg tablet 00 (four) Medical times Branch daily. pregabalin 2023-0 Yes 150mg Take 1 [facility] ers 150 mg 3-30 capsule by ity of capsule 00:00: mouth in [place] 00 the Medical morning Branch and 1 capsule in the evening. meloxicam 2023-0 Yes [facility] 15 mg 3-30 ity of tablet 00:00: [place] 00 Medical Branch HYDROcodone 2023-0 Yes 1{tbl} [...] TABLET BY ity of tablet 00:00: MOUTH [place] 00 EVERY DAY Medical AT BEDTIME Branch FOR 30 DAYS cyclobenzap 2023-0 Yes TAKE 1 [facility] ers rine 10 mg 3-15 TABLET BY ity of tablet 00:00: MOUTH [place] 00 THREE Medical TIMES A Branch DAY NEEDED FOR 30 DAYS amitriptyli 2023-0 Yes TAKE 1 [facility] ers ne 50 mg 3-15 TABLET BY ity of tablet 00:00: MOUTH [place] 00 [facility] 3-0 Yes TAKE 1 [facility] ers rine 10 mg 3-15 TABLET BY ity of tablet 00:00: MOUTH THREE Medical TIMES A Branch DAY NEEDED FOR 30 DAYS amitriptyli 2023-0 Yes TAKE 1 [facility] ers ne 50 mg 3-15 TABLET BY ity of tablet 00:00: [facility] cyclobenzap 2022-0 Yes TAKE 1 [facility] ers rine 10 mg 3-15 TABLET BY ity of tablet 00:00: MOUTH THREE Medical TIMES A Branch DAY NEEDED FOR 30 DAYS amitriptyli 3-0 Yes TAKE 1 [facility] ers ne 50 mg 3-15 TABLET BY ity of tablet 00:00: [facility] cyclobenzap 2022-0 Yes TAKE 1 [facility] ers rine 10 mg 3-15 TABLET BY ity of tablet 00:00: [facility] THREE Medical TIMES A Branch DAY NEEDED FOR 30 DAYS amitriptyli 3-0 Yes TAKE 1 [facility] ers ne 50 mg 3-15 TABLET BY ity of tablet 00:00: [facility] EVERY DAY Medical AT [facility] FOR 30 DAYS cyclobenzap 2022-0 Yes TAKE 1 [facility] ers rine 10 mg 3-15 TABLET BY ity of tablet 00:00: [facility] THREE Medical TIMES A Branch DAY NEEDED FOR 30 DAYS amitriptyli 2023-0 Yes TAKE 1 [facility] ers ne 50 mg 3-15 TABLET BY ity of tablet 00:00: [facility] cyclobenzap 3-0 Yes TAKE 1 [facility] ers rine 10 mg 3-15 TABLET BY ity of tablet 00:00: [facility] THREE Medical TIMES A Branch DAY NEEDED FOR 30 DAYS amitriptyli 2023-0 Yes TAKE 1 [facility] ers ne 50 mg 3-15 TABLET BY ity of tablet 00:00: [facility] EVERY DAY Medical AT BEDTIME Branch FOR 30 DAYS cyclobenzap 3-0 Yes TAKE 1 [facility] ers rine 10 mg 3-15 TABLET BY ity of tablet 00:00: [facility] THREE Medical TIMES A Branch DAY NEEDED [...] tablet 00:00: MOUTH [facility] cyclobenzap 3-0 Yes TAKE 1 [facility] ers rine 10 mg 3-15 TABLET BY ity of tablet 00:00: MOUTH THREE Medical TIMES A Branch DAY NEEDED FOR 30 DAYS amitriptyli 3-0 Yes TAKE 1 [facility] ers ne 50 mg 3-15 TABLET BY ity of tablet 00:00: MOUTH [facility] cyclobenzap 3-0 Yes TAKE 1 [facility] ers rine 10 mg 3-15 TABLET BY ity of tablet 00:00: MOUTH THREE Medical TIMES A Branch DAY NEEDED FOR 30 DAYS amitriptyli 2023-0 Yes TAKE 1 [facility] ers ne 50 mg 3-15 TABLET BY ity of tablet 00:00: [facility] cyclobenzap 3-0 Yes TAKE 1 [facility] ers rine 10 mg 3-15 TABLET BY ity of tablet 00:00: MOUTH THREE Medical TIMES A Branch DAY NEEDED FOR 30 DAYS amitriptyli 2023-0 Yes TAKE 1 [facility] ers ne 50 mg 3-15 TABLET BY ity of tablet 00:00: MOUTH EVERY DAY Medical AT BEDTIME [place] FOR 30 DAYS cyclobenzap 3-0 Yes TAKE [...] 3-15 TABLET BY ity of tablet 00:00: [facility] EVERY DAY Medical AT BEDTIME Branch FOR 30 DAYS cyclobenzap 3-0 Yes TAKE 1 [facility] ers rine 10 mg 3-15 TABLET BY ity of tablet 00:00: [facility] THREE Medical TIMES A Branch DAY NEEDED FOR 30 DAYS amitriptyli 2023-0 Yes TAKE 1 [facility] ers ne 50 mg 3-15 TABLET BY ity of tablet 00:00: [facility] FOR [facility] cyclobenzap 3-0 Yes TAKE 1 [facility] ers rine 10 mg 3-15 TABLET BY ity of tablet 00:00: [facility] THREE Medical TIMES A Branch DAY NEEDED FOR 30 DAYS amitriptyli 3-0 Yes TAKE 1 [facility] ers ne 50 mg 3-15 TABLET BY ity of tablet 00:00: [facility] EVERY DAY Medical AT BEDTIME [place] FOR 30 DAYS cyclobenzap 3-0 Yes TAKE 1 [facility] ers rine 10 mg 3-15 TABLET BY ity of tablet 00:00: [facility] THREE Medical TIMES A Branch DAY NEEDED FOR 30 DAYS amitriptyli 2023-0 Yes TAKE 1 [facility] ers ne 50 mg 3-15 TABLET BY ity of tablet 00:00: [facility] cyclobenzap 3-0 Yes TAKE 1 [facility] ers rine 10 mg 3-15 TABLET BY ity of tablet 00:00: [facility] THREE Medical TIMES A Branch DAY NEEDED FOR 30 DAYS amitriptyli 2023-0 Yes TAKE 1 [facility] ers ne 50 mg 3-15 TABLET BY ity of tablet 00:00: [facility] EVERY DAY Medical AT BEDTIME [place] FOR 30 DAYS cyclobenzap 2023-0 Yes TAKE 1 [facility] ers rine 10 mg 3-15 TABLET BY ity of tablet 00:00: [facility] THREE Medical TIMES A Branch DAY NEEDED FOR 30 DAYS amitriptyli 2023-0 Yes TAKE 1 [facility] ers ne 50 mg 3-15 TABLET BY ity of tablet 00:00: [facility] EVERY DAY Medical AT BEDTIME Branch FOR 30 DAYS cyclobenzap 2023-0 Yes TAKE 1 [facility] ers rine 10 mg 3-15 TABLET BY ity of tablet 00:00: THREE Medical TIMES A Branch DAY NEEDED FOR 30 DAYS amitriptyli 2023-0 Yes TAKE 1 [facility] ers ne 50 mg 3-15 TABLET BY ity of tablet 00:00: [facility] EVERY DAY Medical AT BEDTIME Branch FOR 30 DAYS cyclobenzap 2023-0 Yes TAKE 1 [facility] ers rine 10 mg 3-15 TABLET BY ity of tablet 00:00: [facility] THREE Medical TIMES A Branch DAY NEEDED FOR 30 DAYS amitriptyli 2023-0 Yes TAKE 1 [facility] ers ne 50 mg 3-15 TABLET BY ity of tablet 00:00: [facility] EVERY DAY Medical AT BEDTIME Branch FOR 30 DAYS cyclobenzap 3-0 Yes TAKE 1 [facility] ers rine 10 mg 3-15 TABLET BY ity of tablet 00:00: [facility] THREE Medical TIMES A Branch DAY NEEDED FOR 30 DAYS amitriptyli 2023-0 Yes TAKE 1 [facility] ers ne 50 mg 3-15 TABLET BY ity of tablet 00:00: [facility] EVERY DAY Medical AT BEDTIME Branch FOR 30 DAYS cyclobenzap 3-0 Yes TAKE 1 [facility] ers rine 10 mg 3-15 TABLET BY ity of tablet 00:00: [facility] THREE Medical TIMES A Branch DAY NEEDED FOR 30 DAYS amitriptyli 2023-0 Yes TAKE 1 [facility] ers ne 50 mg 3-15 TABLET BY ity of tablet 00:00: [facility] EVERY DAY Medical AT BEDTIME Branch FOR 30 DAYS cyclobenzap 2023-0 Yes TAKE 1 [facility] ers rine 10 mg 3-15 TABLET BY ity of tablet 00:00: [facility] THREE Medical TIMES A Branch DAY NEEDED FOR 30 DAYS amitriptyli 2023-0 Yes TAKE 1 [facility] ers ne 50 mg 3-15 TABLET BY ity of tablet 00:00: [facility] EVERY DAY Medical AT BEDTIME Branch FOR 30 DAYS cyclobenzap 2023-0 Yes TAKE 1 [facility] ers rine 10 mg 3-15 TABLET BY ity of tablet 00:00: [facility] THREE Medical TIMES A Branch DAY NEEDED FOR 30 DAYS amitriptyli 2023-0 Yes TAKE 1 [facility] ers ne 50 mg 3-15 TABLET BY ity of tablet 00:00: [facility] EVERY DAY Medical AT BEDTIME Branch FOR [...] 3-15 TABLET BY ity of tablet 00:00: [facility] EVERY DAY Medical AT BEDTIME Branch FOR 30 DAYS cyclobenzap 2023-0 Yes TAKE 1 [facility] ers rine 10 mg 3-15 TABLET BY ity of tablet 00:00: [facility] THREE Medical TIMES A Branch DAY NEEDED FOR 30 DAYS amitriptyli 2023-0 Yes TAKE 1 [facility] ers ne 50 mg 3-15 TABLET BY ity of tablet 00:00: [facility] EVERY DAY Medical AT BEDTIME Branch FOR 30 DAYS cyclobenzap 2023-0 Yes TAKE 1 [facility] ers rine 10 mg 3-15 TABLET BY ity of tablet 00:00: MOUTH THREE Medical TIMES A Branch DAY NEEDED FOR 30 DAYS amitriptyli 2023-0 Yes TAKE 1 [facility] ers ne 50 mg 3-15 TABLET BY ity of tablet 00:00: [facility] EVERY DAY Medical AT BEDTIME Branch FOR [...] 30 DAYS cyclobenzap 2022-0 Yes TAKE 1 [facility] ers rine 10 mg 3-15 TABLET BY ity of tablet 00:00: MOUTH 00 THREE Medical TIMES A DAY NEEDED FOR 30 DAYS amitriptyli 2022-0 Yes TAKE 1 [facility] ers ne 50 mg 3-15 TABLET BY ity of tablet 00:00: MOUTH [place] 00 [facility] NaCl 0.9% 0 2022- No 500mL at 999 [facility] ers (NS) bolus 11-03 mL/hr, 500 it [...] IV ity of (BENADRYL) 15:00: 15:18 [place], [place] injection 00 :00 ONCE, 1 Medical 25 mg dose, On Branch Wed11/03/22 at 0900, STAT LORazepam 2022-0 Yes [id number] 1mg Take 1 U nivers (ATIVAN) 1 11-03 tablet by ity of mg tablet 00:00: mouth 2 00 (two) Medical times [place] daily as needed for Anxiety or Agitation. hydrOXYzine 2022-0 Yes [id number] 25mg Take 1 [facility] (VISTARIL) 2-28 capsule by ity of 25 mg 00:00: mouth 3 [place] capsule 00 (three) Medical times [place] daily as needed for Anxiety. LORazepam 2022-0 Yes [id number] 1mg Take 1 U nivers (ATIVAN) 1 2-28 tablet by ity of mg tablet 00:00: mouth 2 [place] 00 (two) Medical times [place] daily as needed for Anxiety or Agitation. hydrOXYzine 2022-0 Yes [id number] 25mg Take 1 [facility] (VISTARIL) 2-28 capsule by ity of 25 mg 00:00: mouth 3 [place] capsule 00 (three) Medical times Branch daily as needed for Anxiety. LORazepam 2023-0 Yes [id number] 1mg Take 1 U nivers (ATIVAN) 1 2-28 tablet by ity of mg tablet 00:00: mouth 2 [place] 00 (two) Medical times Branch daily as needed for Anxiety or Agitation. hydrOXYzine 2023-0 Yes [id number] 25mg Take 1 [facility] (VISTARIL) 2-28 capsule by ity of 25 mg 00:00: mouth 3 [place] capsule 00 (three) Medical times Branch daily as needed for Anxiety. LORazepam 2023-0 Yes [id number] 1mg Take 1 U nivers (ATIVAN) 1 2-28 tablet by ity of mg tablet 00:00: mouth 2 [place] 00 (two) Medical times Branch daily as needed for Anxiety or Agitation. hydrOXYzine 2023-0 Yes [id number] 25mg Take 1 [facility] (VISTARIL) 2-28 capsule by ity of 25 mg 00:00: mouth 3 [place] capsule 00 (three) Medical times Branch daily as needed for Anxiety. LORazepam 2023-0 Yes [id number] 1mg Take 1 U nivers (ATIVAN) 1 2-28 tablet by ity of mg tablet 00:00: mouth 2 [place] 00 (two) Medical times Branch daily as needed for Anxiety or Agitation. hydrOXYzine 2023-0 Yes [id number] 25mg Take 1 [facility] (VISTARIL) 2-28 capsule by ity of 25 mg 00:00: mouth 3 [place] capsule 00 (three) Medical times Branch daily as needed for Anxiety. LORazepam 2023-0 Yes [id number] 1mg Take 1 U nivers (ATIVAN) 1 2-28 tablet by ity of mg tablet 00:00: mouth 2 [place] 00 (two) Medical times Branch daily as needed for Anxiety or Agitation. hydrOXYzine 2023-0 Yes [id number] 25mg Take 1 [facility] (VISTARIL) 2-28 capsule by ity of 25 mg 00:00: mouth 3 [place] capsule 00 (three) Medical times Branch daily as needed for Anxiety. LORazepam 2023-0 Yes [id number] 1mg Take 1 [facility] nivers (ATIVAN) 1 2-28 tablet by ity of mg tablet 00:00: mouth 2 00 (two) Medical times Branch daily as needed for Anxiety or Agitation. hydrOXYzine 2023-0 Yes [id number] 25mg Take 1 [facility] (VISTARIL) 2-28 capsule by ity of 25 mg 00:00: mouth 3 [place] capsule 00 (three) Medical times Branch daily as needed for Anxiety. LORazepam 2023-0 Yes [id number] 1mg Take 1 [facility] nivers (ATIVAN) 1 2-28 tablet by ity of mg tablet 00:00: mouth 2 [place] 00 (two) Medical times Branch daily as needed for Anxiety or Agitation. hydrOXYzine 2023-0 Yes [id number] 25mg Take 1 [facility] (VISTARIL) 2-28 capsule by ity of 25 mg 00:00: mouth 3 [place] capsule 00 (three) Medical times Branch daily as needed for Anxiety. LORazepam 2023-0 Yes [id number] 1mg Take 1 [facility] nivers (ATIVAN) 1 2-28 tablet by ity of mg tablet 00:00: mouth 2 (two) Medical times Branch daily as needed for Anxiety or Agitation. hydrOXYzine 2023-0 Yes [id number] 25mg Take 1 [facility] (VISTARIL) 2-28 capsule by ity of 25 mg 00:00: mouth 3 [place] capsule 00 (three) Medical times Branch daily as needed for Anxiety. LORazepam 2023-0 Yes [id number] 1mg Take 1 [facility] nivers (ATIVAN) 1 2-28 tablet by ity of mg tablet 00:00: mouth 2 (two) Medical times Branch daily as needed for Anxiety or Agitation. hydrOXYzine 2023-0 Yes [id number] 25mg Take 1 [facility] (VISTARIL) 2-28 capsule by ity of 25 mg 00:00: mouth 3 [place] capsule 00 (three) Medical times Branch daily as needed for Anxiety. LORazepam 2023-0 Yes [id number] 1mg Take 1 [facility] nivers (ATIVAN) 1 2-28 tablet by ity of mg tablet 00:00: mouth 2 [place] 00 (two) Medical times Branch daily as needed for Anxiety or Agitation. hydrOXYzine 2023-0 Yes [id number] 25mg Take 1 [facility] (VISTARIL) 2-28 capsule by ity of 25 mg 00:00: mouth 3 [place] capsule 00 (three) Medical times Branch daily as needed for Anxiety. LORazepam 2023-0 Yes [id number] 1mg Take 1 [facility] nivers (ATIVAN) 1 2-28 tablet by ity of mg tablet 00:00: mouth 2 [place] 00 (two) Medical times Branch daily as needed for Anxiety or Agitation. hydrOXYzine 2023-0 Yes [id number] 25mg Take 1 [facility] (VISTARIL) 2-28 capsule by ity of 25 mg 00:00: mouth 3 [place] capsule 00 (three) Medical times Branch daily as needed for Anxiety. LORazepam 2023-0 Yes [id number] 1mg Take 1 [facility] nivers (ATIVAN) 1 2-28 tablet by ity of mg tablet 00:00: mouth 2 [place] 00 (two) Medical times Branch daily as needed for Anxiety or Agitation. hydrOXYzine 2023-0 Yes [id number] 25mg Take 1 [facility] (VISTARIL) 2-28 capsule by ity of 25 mg 00:00: mouth 3 [place] capsule 00 (three) Medical times Branch daily as needed for Anxiety. LORazepam 2023-0 Yes [id number] 1mg Take 1 [facility] nivers (ATIVAN) 1 2-28 tablet by ity of mg tablet 00:00: mouth 2 (two) Medical times Branch daily as needed for Anxiety or Agitation. hydrOXYzine 2023-0 Yes [id number] 25mg Take 1 [facility] (VISTARIL) 2-28 capsule by ity of 25 mg 00:00: mouth 3 [place] capsule 00 (three) Medical times Branch daily as needed for Anxiety. LORazepam 2023-0 Yes [id number] 1mg Take 1 [facility] nivers (ATIVAN) 1 2-28 tablet by ity of mg tablet 00:00: mouth 2 [place] 00 (two) Medical times Branch daily as needed for Anxiety or Agitation. hydrOXYzine 2023-0 Yes [id number] 25mg Take 1 [facility] (VISTARIL) 2-28 capsule by ity of 25 mg 00:00: mouth 3 [place] capsule 00 (three) Medical times Branch daily as needed for Anxiety. LORazepam 2023-0 Yes [id number] 1mg Take 1 [facility] nivers (ATIVAN) 1 2-28 tablet by ity of mg tablet 00:00: mouth 2 [place] 00 (two) Medical times Branch daily as needed for Anxiety or Agitation. hydrOXYzine 2023-0 Yes [id number] 25mg Take 1 [facility] (VISTARIL) 2-28 capsule by ity of 25 mg 00:00: mouth 3 [place] capsule 00 (three) Medical times Branch daily as needed for Anxiety. LORazepam 2023-0 Yes [id number] 1mg Take 1 [facility] nivers (ATIVAN) 1 2-28 tablet by ity of mg tablet 00:00: mouth 2 [place] 00 (two) Medical times Branch daily as needed for Anxiety or Agitation. hydrOXYzine 2023-0 Yes [id number] 25mg Take 1 [facility] (VISTARIL) 2-28 capsule by ity of 25 mg 00:00: mouth 3 [place] capsule 00 (three) Medical times Branch daily as needed for Anxiety. LORazepam 2023-0 Yes [id number] 1mg Take 1 [facility] nivers (ATIVAN) 1 2-28 tablet by ity of mg tablet 00:00: mouth 2 00 (two) Medical times Branch daily as needed for Anxiety or Agitation. hydrOXYzine 2023-0 Yes [id number] 25mg Take 1 [facility] (VISTARIL) 2-28 capsule by ity of 25 mg 00:00: mouth 3 [place] capsule 00 (three) Medical times Branch daily as needed for Anxiety. LORazepam 2023-0 Yes [id number] 1mg Take 1 [facility] nivers (ATIVAN) 1 2-28 tablet by ity of mg tablet 00:00: mouth 2 00 (two) Medical times Branch daily as needed for Anxiety or Agitation. hydrOXYzine 2023-0 Yes [id number] 25mg Take 1 [facility] (VISTARIL) 2-28 capsule by ity of 25 mg 00:00: mouth 3 [place] capsule 00 (three) Medical times Branch daily as needed for Anxiety. LORazepam 2023-0 Yes [id number] 1mg Take 1 U nivers (ATIVAN) 1 2-28 tablet by ity of mg tablet 00:00: mouth 2 [place] 00 (two) Medical times Branch daily as needed for Anxiety or Agitation. hydrOXYzine 2023-0 Yes [id number] 25mg Take 1 [facility] (VISTARIL) 2-28 capsule by ity of 25 mg 00:00: mouth 3 [place] capsule 00 (three) Medical times Branch daily as needed for Anxiety. LORazepam 2023-0 Yes [id number] 1mg Take 1 U nivers (ATIVAN) 1 2-28 tablet by ity of mg tablet 00:00: mouth 2 [place] 00 (two) Medical times Branch daily as needed for Anxiety or Agitation. hydrOXYzine 2023-0 Yes [id number] 25mg Take 1 [facility] (VISTARIL) 2-28 capsule by ity of 25 mg 00:00: mouth 3 [place] capsule 00 (three) Medical times Branch daily as needed for Anxiety. LORazepam 2023-0 Yes [id number] 1mg Take 1 U nivers (ATIVAN) 1 2-28 tablet by ity of mg tablet 00:00: mouth 2 [place] 00 (two) Medical times Branch daily as needed for Anxiety or Agitation. hydrOXYzine 2023-0 Yes [id number] 25mg Take 1 [facility] (VISTARIL) 2-28 capsule by ity of 25 mg 00:00: mouth 3 [place] capsule 00 (three) Medical times Branch daily as needed for Anxiety. LORazepam 2023-0 Yes [id number] 1mg Take 1 U nivers (ATIVAN) 1 2-28 tablet by ity of mg tablet 00:00: mouth 2 [place] 00 (two) Medical times Branch daily as needed for Anxiety or Agitation. hydrOXYzine 2023-0 Yes [id number] 25mg Take 1 [facility] (VISTARIL) 2-28 capsule by ity of 25 mg 00:00: mouth 3 [place] capsule 00 (three) Medical times Branch daily as needed for Anxiety. LORazepam 2023-0 Yes [id number] 1mg Take 1 [facility] nivers (ATIVAN) 1 2-28 tablet by ity of mg tablet 00:00: mouth 2 [place] 00 (two) Medical times Branch daily as needed for Anxiety or Agitation. hydrOXYzine 2023-0 Yes [id number] 25mg Take 1 [facility] (VISTARIL) 2-28 capsule by ity of 25 mg 00:00: mouth 3 [place] capsule 00 (three) Medical times Branch daily as needed for Anxiety. LORazepam 2023-0 Yes [id number] 1mg Take 1 U nivers (ATIVAN) 1 2-28 tablet by ity of mg tablet 00:00: mouth 2 [place] 00 (two) Medical times Branch daily as needed for Anxiety or Agitation. LORazepam 2023-0 Yes [id number] 1mg Take 1 [facility] nivers (ATIVAN) 1 2-28 tablet by ity of mg tablet 00:00: mouth 2 [place] 00 (two) Medical times Branch daily as needed for Anxiety or Agitation. LORazepam 2023-0 Yes [id number] 1mg Take 1 [facility] nivers (ATIVAN) 1 2-28 tablet by ity of mg tablet 00:00: mouth 2 [place] 00 (two) Medical times Branch daily as needed for Anxiety or Agitation. hydrOXYzine 2023-0 Yes [id number] 25mg Take 1 [facility] (VISTARIL) 2-28 capsule by ity of 25 mg 00:00: mouth 3 [place] capsule 00 (three) Medical times Branch daily as needed for Anxiety. LORazepam 2023-0 Yes [id number] 1mg Take 1 [facility] nivers (ATIVAN) 1 2-28 tablet by ity of mg tablet 00:00: mouth 2 00 (two) Medical times Branch daily as needed for Anxiety or Agitation. hydrOXYzine 2023-0 Yes [id number] 25mg Take 1 [facility] (VISTARIL) 2-28 capsule by ity of 25 mg 00:00: mouth 3 [place] capsule 00 (three) Medical times Branch daily as needed for Anxiety. LORazepam 2023-0 Yes [id number] 1mg Take 1 [facility] nivers (ATIVAN) 1 2-28 tablet by ity of mg tablet 00:00: mouth 2 00 (two) Medical times Branch daily as needed for Anxiety or Agitation. hydrOXYzine 2023-0 Yes [id number] 25mg Take 1 [facility] (VISTARIL) 2-28 capsule by ity of 25 mg 00:00: mouth 3 [place] capsule 00 (three) Medical times Branch daily as needed for Anxiety. LORazepam 2023-0 Yes [id number] 1mg Take 1 U nivers (ATIVAN) 1 2-28 tablet by ity of mg tablet 00:00: mouth 2 [place] 00 (two) Medical times Branch daily as needed for Anxiety or Agitation. hydrOXYzine 2023-0 Yes [id number] 25mg Take 1 [facility] (VISTARIL) 2-28 capsule by ity of 25 mg 00:00: mouth 3 [place] capsule 00 (three) Medical times Branch daily as needed for Anxiety. LORazepam 2023-0 Yes [id number] 1mg Take 1 [facility] nivers (ATIVAN) 1 2-28 tablet by ity of mg tablet 00:00: mouth 2 [place] 00 (two) Medical times Branch daily as needed for Anxiety or Agitation. hydrOXYzine 2023-0 Yes [id number] 25mg Take 1 [facility] (VISTARIL) 2-28 capsule by ity of 25 mg 00:00: mouth 3 [place] capsule 00 (three) Medical times Branch daily as needed for Anxiety. LORazepam 2023-0 Yes [id number] 1mg Take 1 U nivers (ATIVAN) 1 2-28 tablet by ity of mg tablet 00:00: mouth 2 [place] 00 (two) Medical times Branch daily as needed for Anxiety or Agitation. hydrOXYzine 2023-0 Yes [id number] 25mg Take 1 [facility] (VISTARIL) 2-28 capsule by ity of 25 mg 00:00: mouth 3 [place] capsule 00 (three) Medical times Branch daily as needed for Anxiety. LORazepam 3-0 Yes [id number] 1mg Take 1 [facility] nivers (ATIVAN) 1 2-28 tablet by ity of mg tablet 00:00: mouth 2 00 (two) Medical times Branch daily as needed for Anxiety or Agitation. hydrOXYzine 3-0 Yes [id number] 25mg Take 1 [facility] (VISTARIL) 2-28 capsule by ity of 25 mg 00:00: mouth 3 [place] capsule 00 (three) Medical times Branch daily as needed for Anxiety. LORazepam 3-0 Yes [id number] 1mg Take 1 [facility] nivers (ATIVAN) 1 2-28 tablet by ity of mg tablet 00:00: mouth 2 00 (two) Medical times Branch daily as needed for Anxiety or Agitation. hydrOXYzine 2023-0 Yes [id number] 25mg Take 1 [facility] (VISTARIL) 2-28 capsule by ity of 25 mg 00:00: mouth 3 [place] capsule 00 (three) Medical times Branch daily as needed for Anxiety. hydrOXYzine 2023-0 3- No [id number] 25mg Take 1 [facility] (VISTARIL) 2-28 06-27 capsule by it y of 25 mg 00:00: 00:00 mouth 3 [place] capsule 00 :00 (three) Medical times Branch daily as needed for Anxiety. iopamidol 3-0 2023- No [id number] 75mL 75 mL, [facility] (ISOVUE 2-07 02-07 Intravenou ity o f 370-500 mL) 09:30: 21:29 s, ONCE, 1 [place] injection 00 :00 dose, On Medica l 75 mL [facility] 10/13/22 Branch at 0330, Routine dicyclomine 2022- No 20mg 20 mg, Uni vers (BENTYL) 10-13 Intramuscu ity of injection 09:15: 21:14 lar, ONCE, [place] 20 mg 00 :00 1 dose, On Medical [facility] 10/13/22 Branch at 0315, Routine famotidine Yes TAKE 1 Unive rs 20 mg 1-25 TABLET BY ity of tablet 00:00: MOUTH IN [place] [address] [facility] MORNING [place] AND IN THE EVENING FOR 5 DAYS famotidine 0 Yes TAKE 1 Unive rs 20 mg 1-25 TABLET BY ity of tablet 00:00: MOUTH IN [address] MORNING [place] AND IN THE EVENING FOR 5 DAYS famotidine 0 Yes TAKE 1 Unive [facility] 20 mg 1-25 TABLET BY ity of tablet 00:00: MOUTH IN [address] MORNING [place] AND IN THE EVENING FOR 5 DAYS famotidine 0 Yes TAKE 1 Unive rs 20 mg 1-25 TABLET BY ity of tablet 00:00: MOUTH IN [place] [address] [facility] MORNING [place] AND IN THE EVENING FOR 5 DAYS famotidine 0 Yes TAKE 1 Unive rs 20 mg 1-25 TABLET BY ity of tablet 00:00: MOUTH IN [place] [address] [facility] MORNING [place] AND IN THE EVENING FOR 5 DAYS famotidine 0 Yes TAKE 1 Unive [facility] 20 mg 1-25 TABLET BY ity of tablet 00:00: MOUTH IN [address] MORNING [place] AND IN THE EVENING FOR 5 DAYS famotidine 0 Yes TAKE 1 [facility] 20 mg 1-25 TABLET BY ity of tablet 00:00: MOUTH IN [address] MORNING [place] AND IN THE EVENING FOR 5 DAYS famotidine 2022-0 Yes TAKE 1 [facility] 20 mg 1-25 TABLET BY ity of tablet 00:00: MOUTH IN [address] MORNING [place] AND IN THE EVENING FOR 5 DAYS famotidine 2022-0 Yes TAKE 1 [facility]ive [facility] 20 mg 1-25 TABLET BY ity of tablet 00:00: MOUTH IN [place] 00 THE Medical MORNING Branch AND IN THE EVENING FOR 5 DAYS famotidine 0 Yes TAKE 1 [facility]ive [facility] 20 mg 1-25 TABLET BY ity of tablet 00:00: MOUTH IN [place] 00 THE Medical MORNING Branch AND IN THE EVENING FOR 5 DAYS famotidine 0 Yes TAKE 1 [facility] 20 mg 1-25 TABLET BY ity of tablet 00:00: MOUTH IN [place] 00 THE Medical MORNING Branch AND IN THE EVENING FOR 5 DAYS famotidine 2022-0 Yes TAKE 1 [facility]ive [facility] 20 mg 1-25 TABLET BY ity of tablet 00:00: MOUTH IN [place] 00 THE Medical MORNING Branch AND IN THE EVENING FOR 5 DAYS famotidine 2022- No TAKE 1 [facility] ers 20 mg 1-25 05-12 TABLET BY ity of tablet 00:00: 00:00 MOUTH IN [place] 00 :00 THE Medical MORNING Branch AND [...] at 1830, 1 mL predniSONE 2022- No [id number] 40mg Take 2 [facility] 20 mg 09-10 tablets by ity of tablet 00:00: 05:59 mouth in [place] 00 :00 the Medical morning Branch for 5 days. famotidine 0 2022- No [id number] 20mg Take 1 [facility] (PEPCID) 20 09-09 tablet by it y of mg tablet 00:00: 05:59 mouth in [facility] 00 :00 the Medical morning Branch and 1 tablet in the evening. Do all this for 5 days. HYDROcodone 2021-09- No 1{tbl} 1 tablet, [facility] -acetaminop 2 12-13 Oral, ity of hen (NORCO) 00:00: 22:59 ONCE, 1 [place] 10-325 mg 00 :00 dose, On Medica l tablet 1 Tue Branch tablet 08/18/22 at 1800, Routine oseltamivir 2021-09- No [id number] 75mg Take 1 [facility] (TAMIFLU) 10-19 capsule [...] 500 mg ity of tablet 00:00: tablet [place] [facility] naproxen 2021-0 2023- No naproxen Univ ers 500 mg 9-16 05-12 500 mg ity of tablet 00:00: 00:00 tablet [place] 00 : Medical Branch prazosin 2 2021-0 Yes 2mg Take 1 Unive rs mg capsule 9-15 capsule by ity of 00:00: mouth. [place] [facility] prazosin 2 2021-0 Yes 2mg Take 1 [facility] mg capsule 9-15 capsule by ity of 00:00: mouth. [place] [facility] prazosin 2 2021-0 Yes 2mg Take 1 [facility] mg capsule 9-15 capsule by ity of 00:00: mouth. [place] [facility] prazosin 2 2021-0 Yes 2mg Take 1 [facility]ive [facility] mg capsule 9-15 capsule by ity of 00:00: mouth. [place] [facility] prazosin 2 2021-0 Yes 2mg Take 1 Unive rs mg capsule 9-15 capsule by ity of 00:00: mouth. [place] [facility] prazosin 2 2021-0 Yes 2mg Take 1 Unive rs mg capsule 9-15 capsule by ity of 00:00: mouth. [place] [facility] prazosin 2 2021-0 Yes 2mg Take 1 Unive rs mg capsule 9-15 capsule by ity of 00:00: mouth. [place] [facility] prazosin 2 2021-0 Yes 2mg Take 1 Unive rs mg capsule 9-15 capsule by ity of 00:00: mouth. [place] [facility] prazosin 2 2021-0 Yes 2mg Take 1 Unive rs mg capsule 9-15 capsule by ity of 00:00: mouth. [place] [facility] prazosin 2 2021-0 Yes 2mg [...] [place] 00 Medical Branch HYDROcodone 2021- No [id number] 1{tbl} Q6H Take 1 [facility] -acetaminop 5-17 05-[address] [facility] ([facility]) 13:50: 00:00 mouth [facility] 10-325 mg 15 :00 every 6 l per tablet (six) hours as needed .acute pain. prn HYDROcodone 2021- No [id number] 1{tbl} Q6H Take 1 [facility] -acetaminop 5-17 05-[address] [facility] ([facility]) 13:50: 00:00 mouth [facility] 10-325 mg 15 :00 every 6 l per tablet (six) hours as needed .acute pain. prn HYDROcodone 2021- No [id number] 1{tbl} Q6H Take 1 [facility] -acetaminop 5-17 05-[address] [facility] ([facility]) 13:50: 00:00 mouth [facility] 10-325 mg 15 :00 every 6 l per tablet (six) hours as needed .acute pain. prn HYDROcodone 2021- No [id number] 1{tbl} Q6H Take 1 [facility] -acetaminop 5-17 05-[address] [facility] ([facility]) 13:50: 00:00 mouth [facility] 10-325 mg 15 :00 every 6 l per tablet (six) hours as needed .acute pain. prn [place]DROcodone 2021- No [id number] 1{tbl} Q6H Take 1 [facility] -acetaminop 5-17 05-[address] [facility] ([facility]) 13:50: 00:00 mouth [facility] 10-325 mg [...] hours as needed. cyclobenzap 2022-0 Yes 10mg Q.[id number] Take 10 mg [facility]i rine 5-17 [id number] mouth [address] (FLEXERIL) 13:09: 3D [...] hours as needed. cyclobenzap 2022-0 Yes 10mg Q.[id number] Take 10 mg [facility]i rine 5-17 [id number] [address] mouth [address] [facility] (FLEXERIL) 13:09: 3D [...] hours as needed. cyclobenzap 2022-0 Yes 10mg Q.[id number] Take 10 mg [facility]i rine 5-17 [id number] [address] mouth [address] (FLEXERIL) 13:09: 3D [...] hours as needed. cyclobenzap 2022-0 Yes 10mg Q.[id number] Take 10 mg Methodi rine 5-17 [id number] [facility] [address] (FLEXERIL) 13:09: 3D [...] hours as needed. cyclobenzap 2022-0 Yes 10mg Q.[id number] Take 10 mg Methodi rine 5-17 [id number] mouth [address] (FLEXERIL) 13:09: 3D [...] hours as needed. cyclobenzap 2022-0 Yes 10mg Q.[id number] Take 10 mg Methodi rine 5-17 [id number] mouth [address] (FLEXERIL) 13:09: 3D [...] hours as needed. cyclobenzap 2022-0 Yes 10mg Q.[id number] Take 10 mg [facility]i rine 5-17 [id number] [address] mouth [address] (FLEXERIL) 13:09: 3D [...] hours as needed. cyclobenzap 2022-0 Yes 10mg Q.[id number] Take 10 mg Methodi rine 5-17 [id number] [address] mouth [address] (FLEXERIL) 13:09: 3D [...] hours as needed. cyclobenzap 2022-0 Yes 10mg Q.[id number] Take 10 mg Methodi rine 5-17 [id number] mouth [address] (FLEXERIL) 13:09: 3D (three) [facility] 10 mg 39 times a l tablet day as needed for muscle spasms. cyclobenzap 2022-0 Yes 10mg Q.[id number] Take 10 mg Methodi rine 5-17 [id number] [address] [facility] [address] (FLEXERIL) 13:09: 3D [...] hours as needed. HYDROcodone 2-0 2021- No [id number] 1{tbl} Q6H Take 1 [facility] -acetaminop 5-17 06-[address] [facility] ([facility]) 00:00: 04:59 mouth [facility] 10-325 mg 00 :00 every 6 l per tablet (six) hours as needed for severe pain for up to 30 days .chronic pain. prn Max Daily Amount: 4 tablets HYDROcodone 2022-0 2022- No [id number] 1{tbl} Q6H Take 1 [facility] -acetaminop 5-17 06-[address] [facility] ([facility]) 00:00: 04:59 mouth [facility] 10-325 mg 00 :00 every 6 l per tablet (six) hours as needed for severe pain for up to 30 days .chronic pain. prn Max Daily Amount: 4 tablets HYDROcodone 2022-0 2022- No [id number] 1{tbl} Q6H Take 1 [facility] -acetaminop 5-17 06-[address] [facility] ([facility]) 00:00: 04:59 mouth [facility] 10-325 mg 00 :00 every 6 l per tablet (six) hours as needed for severe pain for up to 30 days .chronic pain. prn Max Daily Amount: 4 tablets HYDROcodone 2022-0 2022- No [id number] 1{tbl} Q6H Take 1 [facility] -acetaminop 5-17 06-[address] [facility] ([facility]) 00:00: 04:59 mouth [facility] 10-325 mg 00 :00 every 6 l per tablet (six) hours as needed for severe pain for up to 30 days .chronic pain. prn Max Daily Amount: 4 tablets HYDROcodone 2022-0 2022- [place] [id number] 1{tbl} Q6H Take 1 [facility] -acetaminop 5-17 06-[address] [facility] ([facility]) 00:00: 04:59 mouth [facility] 10-325 mg 00 :00 every 6 l per tablet (six) hours as needed for severe pain for up to 30 days .chronic pain. prn Max Daily Amount: 4 tablets HYDROcodone 2022-0 2022- No [id number] 1{tbl} Q6H Take 1 [facility] -acetaminop 5-17 06-[address] [facility] ([facility]) 00:00: 04:59 mouth [facility] 10-325 mg 00 :00 every 6 l per tablet (six) hours as needed for severe pain for up to 30 days .chronic pain. prn Max Daily Amount: 4 tablets [place]DROcodone 2021- [place] [id number] 1{tbl} Q6H Take 1 [facility] -acetaminop 5-17 [...] up to 60 days. diazePAM 2020-09- No [id number] 10mg Q12H Take 1 [facility] (VALIUM) 10 10-15 tablet (10 s t MG tablet 00:00: 05:59 mg total) [facility] 00 :00 by mouth l every 12 (twelve) hours as needed for anxiety for up to 30 days. diazePAM 2020-09- No [id number] 10mg Q12H Take 1 [facility] ([facility]IUM) 10 10-15 tablet (10 s t MG tablet 00:00: 05:59 mg total) [facility] 00 :00 by mouth l every 12 (twelve) hours as needed for anxiety for up to 30 days. diazePAM 2020-09- No [id number] 10mg Q12H Take 1 [facility] (VALIUM) 10 10-15 tablet (10 s t MG tablet 00:00: 05:59 mg total) [facility] 00 :00 by mouth l every 12 (twelve) hours as needed for anxiety for up to 30 days. diazePAM 2020-09- No [id number] 10mg Q12H Take 1 [facility] (VALIUM) [...] as needed for anxiety. diazePAM 2020-09- No [id number] 10mg Q12H Take 1 [facility] ([facility]) 10 09-09 12-05 tablet (10 s t MG tablet 00:00: 05:59 mg total) [facility] 00 :00 by mouth l every 12 (twelve) hours as needed for anxiety for up to 30 days. diazePAM 2020-09- No [id number] 10mg Q12H Take 1 [facility] ([facility]IUM) 10 - 12-05 tablet (10 s t MG tablet 00:00: 05:59 mg total) [facility] 00 :00 by mouth l every 12 (twelve) hours as needed for anxiety for up to 30 days. diazePAM 2020-09- No [id number] 10mg Q12H Take 1 [facility] (VALIUM) 10 - 12-05 tablet (10 s t MG tablet 00:00: 05:59 mg total) [facility] 00 :00 by mouth l every 12 (twelve) hours as needed for anxiety for up to 30 days. diazePAM 2020-09- No [id number] 10mg Q12H Take 1 [facility] (VALIUM) 10 09-09 12-05 tablet (10 s t MG tablet 00:00: 05:59 mg total) [facility] 00 :00 by mouth l every 12 (twelve) hours as needed for anxiety for up to 30 days. azithromyci 2020-09- No [id number] 250mg QD Take 1 [facility] n 008 11-[address] (Zithromax 00:00: 00:00 (250 mg [facility] Z-Ok) 250 00 :00 total) by l MG tablet mouth daily. Take 2 tablets the first day, then 1 tablet daily for 4 days. pantoprazol Yes [id number] 40mg Take 1 [facility] e 4-18 tablet by ity of (PROTONIX) 00:00: mouth [place] 40 mg EC 00 daily. Medical tablet Branch dicyclomine Yes [id number] 20mg Take 1 [facility] 20 mg 4-18 tablet by ity of tablet 00:00: mouth [place] 00 every 6 Medical (six) Branch hours as needed for Abdominal pain. ondansetron Yes [id number] 4mg Take 1 [facility] (ZOFRAN) 4 4-18 tablet by ity of mg tablet 00:00: mouth [place] 00 every 8 Medical (eight) Branch hours as needed for Nausea and Vomiting (N/V). pantoprazol Yes [id number] 40mg Take 1 [facility] e 4-18 tablet by ity of (PROTONIX) 00:00: mouth [place] 40 mg EC 00 daily. Medical tablet Branch dicyclomine Yes [id number] 20mg Take 1 [facility] 20 mg 4-18 tablet by ity of tablet 00:00: mouth [place] 00 every 6 Medical (six) Branch hours as needed for Abdominal pain. ondansetron Yes [id number] 4mg Take 1 [facility] (ZOFRAN) 4 4-18 tablet by ity of mg tablet 00:00: mouth [place] 00 every 8 Medical (eight) Branch hours as needed for Nausea and Vomiting (N/V). pantoprazol 2021-0 Yes [id number] 40mg Take 1 [facility] e 4-18 tablet by ity of (PROTONIX) 00:00: mouth [place] 40 mg EC 00 daily. Medical tablet Branch dicyclomine 0 Yes [id number] 20mg Take 1 [facility] 20 mg 4-18 tablet by ity of tablet 00:00: mouth [place] 00 every 6 Medical (six) Branch hours as needed for Abdominal pain. ondansetron 2020-0 Yes [id number] 4mg Take 1 [facility] (ZOFRAN) 4 4-18 tablet by ity of mg tablet 00:00: mouth [place] 00 every 8 Medical (eight) Branch hours as needed for Nausea and Vomiting (N/V). pantoprazol 2020-0 Yes [id number] 40mg Take 1 [facility] e 4-18 tablet by ity of (PROTONIX) 00:00: mouth [place] 40 mg EC 00 daily. Medical tablet Branch dicyclomine 0 Yes [id number] 20mg Take 1 [facility] 20 mg 4-18 tablet by ity of tablet 00:00: mouth [place] 00 every 6 Medical (six) Branch hours as needed for Abdominal pain. ondansetron 0 Yes [id number] 4mg Take 1 [facility] (ZOFRAN) 4 4-18 tablet by ity of mg tablet 00:00: mouth [place] 00 every 8 Medical (eight) Branch hours as needed for Nausea and Vomiting (N/V). pantoprazol 2020-0 Yes [id number] 40mg Take 1 [facility] e 4-18 tablet by ity of (PROTONIX) 00:00: mouth [place] 40 mg EC 00 daily. Medical tablet Branch dicyclomine 0 Yes [id number] 20mg Take 1 [facility] 20 mg 4-18 tablet by ity of tablet 00:00: mouth [place] 00 every 6 Medical (six) Branch hours as needed for Abdominal pain. ondansetron 2020-0 Yes [id number] 4mg Take 1 [facility] (ZOFRAN) 4 4-18 tablet by ity of mg tablet 00:00: mouth [place] 00 every 8 Medical (eight) Branch hours as needed for Nausea and Vomiting (N/V). pantoprazol 2020-0 Yes [id number] 40mg Take 1 [facility] e 4-18 tablet by ity of (PROTONIX) 00:00: mouth [place] 40 mg EC 00 daily. Medical tablet Branch dicyclomine 2020-0 Yes [id number] 20mg Take 1 [facility] 20 mg 4-18 tablet by ity of tablet 00:00: mouth [place] 00 every 6 Medical (six) Branch hours as needed for Abdominal pain. ondansetron 2020-0 Yes [id number] 4mg Take 1 [facility] (ZOFRAN) 4 4-18 tablet by ity of mg tablet 00:00: mouth [place] 00 every 8 Medical (eight) Branch hours as needed for Nausea and Vomiting (N/V). pantoprazol 2020-0 Yes [id number] 40mg Take 1 [facility] e 4-18 tablet by ity of (PROTONIX) 00:00: mouth [place] 40 mg EC 00 daily. Medical tablet Branch dicyclomine 2020-0 Yes [id number] 20mg Take 1 [facility] 20 mg 4-18 tablet by ity of tablet 00:00: mouth [place] 00 every 6 Medical (six) Branch hours as needed for Abdominal pain. ondansetron 2020-0 Yes [id number] 4mg Take 1 [facility] (ZOFRAN) 4 4-18 tablet by ity of mg tablet 00:00: mouth [place] 00 every 8 Medical (eight) Branch hours as needed for Nausea and Vomiting (N/V). pantoprazol 2020-0 Yes [id number] 40mg Take 1 [facility] e 4-18 tablet by ity of (PROTONIX) 00:00: mouth [place] 40 mg EC 00 daily. Medical tablet Branch dicyclomine 2020-0 Yes [id number] 20mg Take 1 [facility] 20 mg 4-18 tablet by ity of tablet 00:00: mouth [place] 00 every 6 Medical (six) Branch hours as needed for Abdominal pain. ondansetron 2020-0 Yes [id number] 4mg Take 1 [facility] (ZOFRAN) 4 4-18 tablet by ity of mg tablet 00:00: mouth [place] 00 every 8 Medical (eight) Branch hours as needed for Nausea and Vomiting (N/V). pantoprazol 2020-0 Yes [id number] 40mg Take 1 [facility] e 4-18 tablet by ity of (PROTONIX) 00:00: mouth [place] 40 mg EC 00 daily. Medical tablet Branch dicyclomine 2020-0 Yes [id number] 20mg Take 1 [facility] 20 mg 4-18 tablet by ity of tablet 00:00: mouth [place] 00 every 6 Medical (six) Branch hours as needed for Abdominal pain. ondansetron 2020-0 Yes [id number] 4mg Take 1 [facility] (ZOFRAN) 4 4-18 tablet by ity of mg tablet 00:00: mouth [place] 00 every 8 Medical (eight) Branch hours as needed for Nausea and Vomiting (N/V). pantoprazol 2020-0 Yes [id number] 40mg Take 1 [facility] e 4-18 tablet by ity of (PROTONIX) 00:00: mouth [place] 40 mg EC 00 daily. Medical tablet Branch dicyclomine 2020-0 Yes [id number] 20mg Take 1 [facility] 20 mg 4-18 tablet by ity of tablet 00:00: mouth [place] 00 every 6 Medical (six) Branch hours as needed for Abdominal pain. ondansetron 2020-0 Yes [id number] 4mg Take 1 [facility] (ZOFRAN) 4 4-18 tablet by ity of mg tablet 00:00: mouth [place] 00 every 8 Medical (eight) Branch hours as needed for Nausea and Vomiting (N/V). pantoprazol 2020-0 Yes [id number] 40mg Take 1 [facility] e 4-18 tablet by ity of (PROTONIX) 00:00: mouth [place] 40 mg EC 00 daily. Medical tablet Branch dicyclomine 2020-0 Yes [id number] 20mg Take 1 [facility] 20 mg 4-18 tablet by ity of tablet 00:00: mouth [place] 00 every 6 Medical (six) Branch hours as needed for Abdominal pain. ondansetron 2020-0 Yes [id number] 4mg Take 1 [facility] (ZOFRAN) 4 4-18 tablet by ity of mg tablet 00:00: mouth [place] 00 every 8 Medical (eight) Branch hours as needed for Nausea and Vomiting (N/V). pantoprazol 2020-0 Yes [id number] 40mg Take 1 [facility] e 4-18 tablet by ity of (PROTONIX) 00:00: mouth [place] 40 mg EC 00 daily. Medical tablet Branch dicyclomine 2020-0 Yes [id number] 20mg Take 1 [facility] 20 mg 4-18 tablet by ity of tablet 00:00: mouth [place] 00 every 6 Medical (six) Branch hours as needed for Abdominal pain. ondansetron 2020-0 Yes [id number] 4mg Take 1 [facility] (ZOFRAN) 4 4-18 tablet by ity of mg tablet 00:00: mouth [place] 00 every 8 Medical (eight) Branch hours as needed for Nausea and Vomiting (N/V). pantoprazol 2020-0 Yes [id number] 40mg Take 1 [facility] e 4-18 tablet by ity of (PROTONIX) 00:00: mouth [place] 40 mg EC 00 daily. Medical tablet Branch dicyclomine 2020-0 Yes [id number] 20mg Take 1 [facility] 20 mg 4-18 tablet by ity of tablet 00:00: mouth [place] 00 every 6 Medical (six) Branch hours as needed for Abdominal pain. ondansetron 2020-0 Yes [id number] 4mg Take 1 [facility] (ZOFRAN) 4 4-18 tablet by ity of mg tablet 00:00: mouth [place] 00 every 8 Medical (eight) Branch hours as needed for Nausea and Vomiting (N/V). pantoprazol 2020-0 Yes [id number] 40mg Take 1 [facility] e 4-18 tablet by ity of (PROTONIX) 00:00: mouth [place] 40 mg EC 00 daily. Medical tablet Branch dicyclomine 0 Yes [id number] 20mg Take 1 [facility] 20 mg 4-18 tablet by ity of tablet 00:00: mouth [place] 00 every 6 Medical (six) Branch hours as needed for Abdominal pain. ondansetron 2020-0 Yes [id number] 4mg Take 1 [facility] (ZOFRAN) 4 4-18 tablet by ity of mg tablet 00:00: mouth [place] 00 every 8 Medical (eight) Branch hours as needed for Nausea and Vomiting (N/V). pantoprazol 2020-0 Yes [id number] 40mg Take 1 [facility] e 4-18 tablet by ity of (PROTONIX) 00:00: mouth [place] 40 mg EC 00 daily. Medical tablet Branch dicyclomine 2020-0 Yes [id number] 20mg Take 1 [facility] 20 mg 4-18 tablet by ity of tablet 00:00: mouth [place] 00 every 6 Medical (six) Branch hours as needed for Abdominal pain. ondansetron 2020-0 Yes [id number] 4mg Take 1 [facility] (ZOFRAN) 4 4-18 tablet by ity of mg tablet 00:00: mouth [place] 00 every 8 Medical (eight) Branch hours as needed for Nausea and Vomiting (N/V). pantoprazol 2020-0 Yes [id number] 40mg Take 1 [facility] e 4-18 tablet by ity of (PROTONIX) 00:00: mouth [place] 40 mg EC 00 daily. Medical tablet Branch dicyclomine 2020-0 Yes [id number] 20mg Take 1 [facility] 20 mg 4-18 tablet by ity of tablet 00:00: mouth [place] 00 every 6 Medical (six) Branch hours as needed for Abdominal pain. ondansetron 2020-0 Yes [id number] 4mg Take 1 [facility] (ZOFRAN) 4 4-18 tablet by ity of mg tablet 00:00: mouth [place] 00 every 8 Medical (eight) Branch hours as needed for Nausea and Vomiting (N/V). pantoprazol 2020-0 Yes [id number] 40mg Take 1 [facility] e 4-18 tablet by ity of (PROTONIX) 00:00: mouth [place] 40 mg EC 00 daily. Medical tablet Branch dicyclomine 2020-0 Yes [id number] 20mg Take 1 [facility] 20 mg 4-18 tablet by ity of tablet 00:00: mouth [place] 00 every 6 Medical (six) Branch hours as needed for Abdominal pain. ondansetron 2020-0 Yes [id number] 4mg Take 1 [facility] (ZOFRAN) 4 4-18 tablet by ity of mg tablet 00:00: mouth [place] 00 every 8 Medical (eight) Branch hours as needed for Nausea and Vomiting (N/V). pantoprazol 2020-0 Yes [id number] 40mg Take 1 [facility] e 4-18 tablet by ity of (PROTONIX) 00:00: mouth [place] 40 mg EC 00 daily. Medical tablet Branch dicyclomine 2020-0 Yes [id number] 20mg Take 1 [facility] 20 mg 4-18 tablet by ity of tablet 00:00: mouth [place] 00 every 6 Medical (six) Branch hours as needed for Abdominal pain. ondansetron 2020-0 Yes [id number] 4mg Take 1 [facility] (ZOFRAN) 4 4-18 tablet by ity of mg tablet 00:00: mouth [place] 00 every 8 Medical (eight) Branch hours as needed for Nausea and Vomiting (N/V). pantoprazol 2020-0 Yes [id number] 40mg Take 1 [facility] e 4-18 tablet by ity of (PROTONIX) 00:00: mouth [place] 40 mg EC 00 daily. Medical tablet Branch dicyclomine 2020-0 Yes [id number] 20mg Take 1 [facility] 20 mg 4-18 tablet by ity of tablet 00:00: mouth [place] 00 every 6 Medical (six) Branch hours as needed for Abdominal pain. ondansetron 2020-0 Yes [id number] 4mg Take 1 [facility] (ZOFRAN) 4 4-18 tablet by ity of mg tablet 00:00: mouth [place] 00 every 8 Medical (eight) Branch hours as needed for Nausea and Vomiting (N/V). pantoprazol 2020-0 Yes [id number] 40mg Take 1 [facility] e 4-18 tablet by ity of (PROTONIX) 00:00: mouth [place] 40 mg EC 00 daily. Medical tablet Branch dicyclomine 2020-0 Yes [id number] 20mg Take 1 [facility] 20 mg 4-18 tablet by ity of tablet 00:00: mouth [place] 00 every 6 Medical (six) Branch hours as needed for Abdominal pain. ondansetron 2020-0 Yes [id number] 4mg Take 1 [facility] (ZOFRAN) 4 4-18 tablet by ity of mg tablet 00:00: mouth [place] 00 every 8 Medical (eight) Branch hours as needed for Nausea and Vomiting (N/V). pantoprazol 2020-0 Yes [id number] 40mg Take 1 [facility] e 4-18 tablet by ity of (PROTONIX) 00:00: mouth [place] 40 mg EC 00 daily. Medical tablet Branch dicyclomine 2020-0 Yes [id number] 20mg Take 1 [facility] 20 mg 4-18 tablet by ity of tablet 00:00: mouth [place] 00 every 6 Medical (six) Branch hours as needed for Abdominal pain. ondansetron 2020-0 Yes [id number] 4mg Take 1 [facility] (ZOFRAN) 4 4-18 tablet by ity of mg tablet 00:00: mouth [place] 00 every 8 Medical (eight) Branch hours as needed for Nausea and Vomiting (N/V). pantoprazol 2020-0 Yes [id number] 40mg Take 1 [facility] e 4-18 tablet by ity of (PROTONIX) 00:00: mouth [place] 40 mg EC 00 daily. Medical tablet Branch dicyclomine 2020-0 Yes [id number] 20mg Take 1 [facility] 20 mg 4-18 tablet by ity of tablet 00:00: mouth [place] 00 every 6 Medical (six) Branch hours as needed for Abdominal pain. ondansetron 2020-0 Yes [id number] 4mg Take 1 [facility] (ZOFRAN) 4 4-18 tablet by ity of mg tablet 00:00: mouth [place] 00 every 8 Medical (eight) Branch hours as needed for Nausea and Vomiting (N/V). pantoprazol 2020-0 Yes [id number] 40mg Take 1 [facility] e 4-18 tablet by ity of (PROTONIX) 00:00: mouth [place] 40 mg EC 00 daily. Medical tablet Branch dicyclomine 2020-0 Yes [id number] 20mg Take 1 [facility] 20 mg 4-18 tablet by ity of tablet 00:00: mouth [place] 00 every 6 Medical (six) Branch hours as needed for Abdominal pain. ondansetron 2020-0 Yes [id number] 4mg Take 1 [facility] (ZOFRAN) 4 4-18 tablet by ity of mg tablet 00:00: mouth [place] 00 every 8 Medical (eight) Branch hours as needed for Nausea and Vomiting (N/V). pantoprazol 2020-0 Yes [id number] 40mg Take 1 [facility] e 4-18 tablet by ity of (PROTONIX) 00:00: mouth [place] 40 mg EC 00 daily. Medical tablet Branch dicyclomine 2020-0 Yes [id number] 20mg Take 1 [facility] 20 mg 4-18 tablet by ity of tablet 00:00: mouth [place] 00 every 6 Medical (six) Branch hours as needed for Abdominal pain. ondansetron 2020-0 Yes [id number] 4mg Take 1 [facility] (ZOFRAN) 4 4-18 tablet by ity of mg tablet 00:00: mouth [place] 00 every 8 Medical (eight) Branch hours as needed for Nausea and Vomiting (N/V). pantoprazol 2020-0 Yes [id number] 40mg Take 1 [facility] e 4-18 tablet by ity of (PROTONIX) 00:00: mouth [place] 40 mg EC 00 daily. Medical tablet Branch dicyclomine 2020-0 Yes [id number] 20mg Take 1 [facility] 20 mg 4-18 tablet by ity of tablet 00:00: mouth [place] 00 every 6 Medical (six) Branch hours as needed for Abdominal pain. pantoprazol 2020-0 Yes [id number] 40mg Take 1 [facility] e 4-18 tablet by ity of (PROTONIX) 00:00: mouth [place] 40 mg EC 00 daily. Medical tablet Branch dicyclomine 2020-0 Yes [id number] 20mg Take 1 [facility] 20 mg 4-18 tablet by ity of tablet 00:00: mouth [place] 00 every 6 Medical (six) Branch hours as needed for Abdominal pain. pantoprazol 2020-0 Yes [id number] 40mg Take 1 [facility] e 4-18 tablet by ity of (PROTONIX) 00:00: mouth [place] 40 mg EC 00 daily. Medical tablet Branch dicyclomine 2020-0 Yes [id number] 20mg Take 1 [facility] 20 mg 4-18 tablet by ity of tablet 00:00: mouth [place] 00 every 6 Medical (six) Branch hours as needed for Abdominal pain. ondansetron 2020-0 Yes [id number] 4mg Take 1 [facility] (ZOFR[facility]) 4 4-18 tablet by [facility] mg tablet 00:00: mouth [place] 00 every 8 Medical (eight) Branch hours as needed for Nausea and Vomiting (N/V). pantoprazol 2020-0 Yes [id number] 40mg Take 1 [facility] e 4-18 tablet by [facility] of (PROTONIX) 00:00: mouth [place] 40 mg EC 00 daily. Medical tablet Branch dicyclomine 2020-0 Yes [id number] 20mg Take 1 [facility] 20 mg 4-18 tablet by [facility] of tablet 00:00: mouth [place] 00 every 6 Medical (six) Branch hours as needed for Abdominal pain. ondansetron 2020-0 Yes [id number] 4mg Take 1 [facility] (ZOFRAN) 4 4-18 tablet by [facility] of mg tablet 00:00: mouth [place] 00 every 8 Medical (eight) Branch hours as needed for Nausea and Vomiting (N/V). pantoprazol 2020-0 Yes [id number] 40mg Take 1 [facility] e 4-18 tablet by [facility] of (PROTONIX) 00:00: mouth [place] 40 mg EC 00 daily. Medical tablet Branch dicyclomine 2020-0 Yes [id number] 20mg Take 1 [facility] 20 mg 4-18 tablet by [facility] of tablet 00:00: mouth [place] 00 every 6 Medical (six) Branch hours as needed for Abdominal pain. ondansetron 2020-0 Yes [id number] 4mg Take 1 [facility] (ZOFRAN) 4 4-18 tablet by [facility] of mg tablet 00:00: mouth [place] 00 every 8 Medical (eight) Branch hours as needed for Nausea and Vomiting (N/V). pantoprazol 2020-0 Yes [id number] 40mg Take 1 [facility] e 4-18 tablet by [facility] of (PROTONIX) 00:00: mouth [place] 40 mg EC 00 daily. Medical tablet Branch dicyclomine 2020-0 Yes [id number] 20mg Take 1 [facility] 20 mg 4-18 tablet by [facility] of tablet 00:00: mouth [place] 00 every 6 Medical (six) Branch hours as needed for Abdominal pain. ondansetron 2020-0 Yes [id number] 4mg Take 1 [facility] (ZOFRAN) 4 4-18 tablet by [facility] of mg tablet 00:00: mouth [place] 00 every 8 Medical (eight) Branch hours as needed for Nausea and Vomiting (N/V). pantoprazol 2020-0 Yes [id number] 40mg Take 1 [facility] e 4-18 tablet by [facility] of (PROTONIX) 00:00: mouth [place] 40 mg EC 00 daily. Medical tablet Branch dicyclomine 2020-0 Yes [id number] 20mg Take 1 [facility] 20 mg 4-18 tablet by [facility] of tablet 00:00: mouth [place] 00 every 6 Medical (six) Branch hours as needed for Abdominal pain. ondansetron 2020-0 Yes [id number] 4mg Take 1 [facility] (ZOFRAN) 4 4-18 tablet by [facility] of mg tablet 00:00: mouth [place] 00 every 8 Medical (eight) Branch hours as needed for Nausea and Vomiting (N/V). pantoprazol 2020-0 Yes [id number] 40mg Take 1 [facility] e 4-18 tablet by [facility] of (PROTONIX) 00:00: mouth [place] 40 mg EC 00 daily. Medical tablet Branch dicyclomine 2020-0 Yes [id number] 20mg Take 1 [facility] 20 mg 4-18 tablet by [facility] of tablet 00:00: mouth [place] 00 every 6 Medical (six) Branch hours as needed for Abdominal pain. ondansetron 2020-0 Yes [id number] 4mg Take 1 [facility] (ZOFRAN) 4 4-18 tablet by [facility] of mg tablet 00:00: mouth [place] 00 every 8 Medical (eight) Branch hours as needed for Nausea and Vomiting (N/V). pantoprazol 2020-0 Yes [id number] 40mg Take 1 [facility] e 4-18 tablet by [facility] of (PROTONIX) 00:00: mouth [place] 40 mg EC 00 daily. Medical tablet Branch dicyclomine 2020-0 Yes [id number] 20mg Take 1 [facility] 20 mg 4-18 tablet by [facility] of tablet 00:00: mouth [place] 00 every 6 Medical (six) Branch hours as needed for Abdominal pain. ondansetron 2020-0 Yes [id number] 4mg Take 1 [facility] (ZOFRAN) 4 4-18 tablet by [facility] of mg tablet 00:00: mouth [place] 00 every 8 Medical (eight) Branch hours as needed for Nausea and Vomiting (N/V). pantoprazol 2020-0 Yes [id number] 40mg Take 1 [facility] e 4-18 tablet by [facility] of (PROTONIX) 00:00: mouth [place] 40 mg EC 00 daily. Medical tablet Branch dicyclomine 2020-0 Yes [id number] 20mg Take 1 [facility] 20 mg 4-18 tablet by [facility] of tablet 00:00: mouth [place] 00 every 6 Medical (six) Branch hours as needed for Abdominal pain. ondansetron 2020-0 Yes [id number] 4mg Take 1 [facility] (ZOFRAN) 4 4-18 tablet by [facility] of mg tablet 00:00: mouth [place] 00 every 8 Medical (eight) Branch hours as needed for Nausea and Vomiting (N/V). pantoprazol 2020-0 Yes [id number] 40mg Take 1 [facility] e 4-18 tablet by [facility] of (PROTONIX) 00:00: mouth [place] 40 mg EC 00 daily. Medical tablet Branch dicyclomine 2020-0 Yes [id number] 20mg Take 1 [facility] 20 mg 4-18 tablet by [facility] of tablet 00:00: mouth [place] 00 every 6 Medical (six) Branch hours as needed for Abdominal pain. ondansetron 2020-0 Yes [id number] 4mg Take 1 [facility] (ZOFRAN) 4 4-18 tablet by [facility] of mg tablet 00:00: mouth [place] 00 every 8 Medical (eight) Branch hours as needed for Nausea and Vomiting (N/V). pantoprazol 2020-0 Yes [id number] 40mg Take 1 [facility] e 4-18 tablet by [facility] of (PROTONIX) 00:00: mouth [place] 40 mg EC 00 daily. Medical tablet Branch dicyclomine 2020-0 Yes [id number] 20mg Take 1 [facility] 20 mg 4-18 tablet by [facility] of tablet 00:00: mouth [place] 00 every 6 Medical (six) Branch hours as needed for Abdominal pain. ondansetron 2020-0 Yes [id number] 4mg Take 1 [facility] (ZOFRAN) 4 4-18 tablet by [facility] of mg tablet 00:00: mouth [place] 00 every 8 Medical (eight) Branch hours as needed for Nausea and Vomiting (N/V). pantoprazol 2020-0 Yes [id number] 40mg Take 1 [facility] e 4-18 tablet by [facility] of (PROTONIX) 00:00: mouth [place] 40 mg EC 00 daily. Medical tablet Branch dicyclomine 2020-0 Yes [id number] 20mg Take 1 [facility] 20 mg 4-18 tablet by [facility] of tablet 00:00: mouth [place] 00 every 6 Medical (six) Branch hours as needed for Abdominal pain. ondansetron 2020-0 Yes [id number] 4mg Take 1 [facility] (ZOFRAN) 4 4-18 tablet by [facility] of mg tablet 00:00: mouth [place] 00 every 8 Medical (eight) Branch hours as needed for Nausea and Vomiting (N/V). pantoprazol 2020-0 Yes [id number] 40mg Take 1 [facility] e 4-18 tablet by [facility] of (PROTONIX) 00:00: mouth [place] 40 mg EC 00 daily. Medical tablet Branch dicyclomine 2020-0 Yes [id number] 20mg Take 1 [facility] 20 mg 4-18 tablet by [facility] of tablet 00:00: mouth [place] 00 every 6 Medical (six) Branch hours as needed for Abdominal pain. ondansetron 2020-0 Yes [id number] 4mg Take 1 [facility] (ZOFRAN) 4 4-18 tablet by [facility] of mg tablet 00:00: mouth [place] 00 every 8 Medical (eight) Branch hours as needed for Nausea and Vomiting (N/V). pantoprazol 2020-0 Yes [id number] 40mg Take 1 [facility] e 4-18 tablet by [facility] of (PROTONIX) 00:00: mouth [place] 40 mg EC 00 daily. Medical tablet Branch dicyclomine 2020-0 Yes [id number] 20mg Take 1 [facility] 20 mg 4-18 tablet by [facility] of tablet 00:00: mouth [place] 00 every 6 Medical (six) Branch hours as needed for Abdominal pain. ondansetron 2020-0 Yes [id number] 4mg Take 1 [facility] (ZOFRAN) 4 4-18 tablet by [facility] of mg tablet 00:00: mouth [place] 00 every 8 Medical (eight) Branch hours as needed for Nausea and Vomiting (N/V). pantoprazol 2020-0 Yes [id number] 40mg Take 1 [facility] e 4-18 tablet by [facility] of (PROTONIX) 00:00: mouth [place] 40 mg EC 00 daily. Medical tablet Branch dicyclomine 2020-0 Yes [id number] 20mg Take 1 [facility] 20 mg 4-18 tablet by [facility] of tablet 00:00: mouth [place] 00 every 6 Medical (six) Branch hours as needed for Abdominal pain. ondansetron 2020-0 Yes [id number] 4mg Take 1 [facility] (ZOFRAN) 4 4-18 tablet by [facility] of mg tablet 00:00: mouth [place] 00 every 8 Medical (eight) Branch hours as needed for Nausea and Vomiting (N/V). pantoprazol 2020-0 Yes [id number] 40mg Take 1 [facility] e 4-18 tablet by [facility] of (PROTONIX) 00:00: mouth [place] 40 mg EC 00 daily. Medical tablet Branch dicyclomine 2020-0 Yes [id number] 20mg Take 1 [facility] 20 mg 4-18 tablet by [facility] of tablet 00:00: mouth [place] 00 every 6 Medical (six) Branch hours as needed for Abdominal pain. ondansetron 2020-0 Yes [id number] 4mg Take 1 [facility] (ZOFRAN) 4 4-18 tablet by [facility] of mg tablet 00:00: mouth [place] 00 every 8 Medical (eight) Branch hours as needed for Nausea and Vomiting (N/V). pantoprazol 2020-0 Yes [id number] 40mg Take 1 [facility] e 4-18 tablet by [facility] of (PROTONIX) 00:00: mouth [place] 40 mg EC 00 daily. Medical tablet Branch dicyclomine 2020-0 Yes [id number] 20mg Take 1 [facility] 20 mg 4-18 tablet by [facility] of tablet 00:00: mouth [place] 00 every 6 Medical (six) Branch hours as needed for Abdominal pain. ondansetron 2020-0 Yes [id number] 4mg Take 1 [facility] (ZOFRAN) 4 4-18 tablet by [facility] of mg tablet 00:00: mouth [place] 00 every 8 Medical (eight) Branch hours as needed for Nausea and Vomiting (N/V). pantoprazol 2020-0 Yes [id number] 40mg Take 1 [facility] e 4-18 tablet by [facility] of (PROTONIX) 00:00: mouth [place] 40 mg EC 00 daily. Medical tablet Branch dicyclomine 2020-0 Yes [id number] 20mg Take 1 [facility] 20 mg 4-18 tablet by [facility] of tablet 00:00: mouth [place] 00 every 6 Medical (six) Branch hours as needed for Abdominal pain. ondansetron 2020-0 Yes [id number] 4mg Take 1 [facility] (ZOFRAN) 4 4-18 tablet by [facility] of mg tablet 00:00: mouth [place] 00 every 8 Medical (eight) Branch hours as needed for Nausea and Vomiting (N/V). pantoprazol 2020-0 Yes [id number] 40mg Take 1 [facility] e 4-18 tablet by [facility] of (PROTONIX) 00:00: mouth [place] 40 mg EC 00 daily. Medical tablet Branch dicyclomine 2020-0 Yes [id number] 20mg Take 1 [facility] 20 mg 4-18 tablet by [facility] of tablet 00:00: mouth [place] 00 every 6 Medical (six) Branch hours as needed for Abdominal pain. ondansetron 2020-0 Yes [id number] 4mg Take 1 [facility] (ZOFRAN) 4 4-18 tablet by [facility] of mg tablet 00:00: mouth [place] 00 every 8 Medical (eight) Branch hours as needed for Nausea and Vomiting (N/V). pantoprazol 2020-0 Yes [id number] 40mg Take 1 [facility] e 4-18 tablet by [facility] of (PROTONIX) 00:00: mouth [place] 40 mg EC 00 daily. Medical tablet Branch dicyclomine 2020-0 Yes [id number] 20mg Take 1 [facility] 20 mg 4-18 tablet by [facility] of tablet 00:00: mouth [place] 00 every 6 Medical (six) Branch hours as needed for Abdominal pain. ondansetron 2020-0 Yes [id number] 4mg Take 1 [facility] (ZOFRAN) 4 4-18 tablet by [facility] of mg tablet 00:00: mouth [place] 00 every 8 Medical (eight) Branch hours as needed for Nausea and Vomiting (N/V). pantoprazol 2020-0 Yes [id number] 40mg Take 1 [facility] e 4-18 tablet by [facility] of (PROTONIX) 00:00: mouth [place] 40 mg EC 00 daily. Medical tablet Branch dicyclomine 2020-0 Yes [id number] 20mg Take 1 [facility] 20 mg 4-18 tablet by [facility] of tablet 00:00: mouth [place] 00 every 6 Medical (six) Branch hours as needed for Abdominal pain. ondansetron 2020-0 Yes [id number] 4mg Take 1 [facility] (ZOFRAN) 4 4-18 tablet by [facility] of mg tablet 00:00: mouth [place] 00 every 8 Medical (eight) Branch hours as needed for Nausea and Vomiting (N/V). pantoprazol 2020-0 Yes [id number] 40mg Take 1 [facility] e 4-18 tablet by [facility] of (PROTONIX) 00:00: mouth [place] 40 mg EC 00 daily. Medical tablet Branch dicyclomine 2020-0 Yes [id number] 20mg Take 1 [facility] 20 mg 4-18 tablet by [facility] of tablet 00:00: mouth [place] 00 every 6 Medical (six) Branch hours as needed for Abdominal pain. ondansetron 2020-0 Yes [id number] 4mg Take 1 [facility] (ZOFRAN) 4 4-18 tablet by [facility] of mg tablet 00:00: mouth [place] 00 every 8 Medical (eight) Branch hours as needed for Nausea and Vomiting (N/V). pantoprazol 2020-0 Yes [id number] 40mg Take 1 [facility] e 4-18 tablet by [facility] of (PROTONIX) 00:00: mouth [place] 40 mg EC 00 daily. Medical tablet Branch dicyclomine 2020-0 Yes [id number] 20mg Take 1 [facility] 20 mg 4-18 tablet by [facility] of tablet 00:00: mouth [place] 00 every 6 Medical (six) Branch hours as needed for Abdominal pain. ondansetron 2020-0 Yes [id number] 4mg Take 1 [facility] (ZOFRAN) 4 4-18 tablet by [facility] of mg tablet 00:00: mouth [place] 00 every 8 Medical (eight) Branch hours as needed for Nausea and Vomiting (N/V). pantoprazol Yes [id number] 40mg Take 1 [facility] e 4-18 tablet by [facility] of (PROTONIX) 00:00: mouth [place] 40 mg EC 00 daily. Medical tablet Branch dicyclomine Yes [id number] 20mg Take 1 [facility] 20 mg 4-18 tablet by [facility] of tablet 00:00: mouth [place] 00 every 6 Medical (six) Branch hours as needed for Abdominal pain. ondansetron Yes [id number] 4mg Take 1 [facility] (ZOFRAN) 4 4-18 tablet by [facility] of mg tablet 00:00: mouth [place] 00 every 8 Medical (eight) Branch hours as needed for Nausea and Vomiting (N/V). ondansetron 2022- No [id number] 4mg Take 1 [facility] (ZOFRAN) 4 4-18 [...] 00 DAILY UNTIL FINISHED. nystatin 2020-0 Yes [id number] Apply to [facility] 100,000 2-05 affected [facility] of unit/gram 00:00: area(s) 3 [facility] ointment 00 (three) Medical times Branch daily. nystatin 2020-0 Yes [id number] Apply to [facility] 100,000 2-05 affected [facility] of unit/gram 00:00: area(s) 3 [facility] ointment 00 (three) Medical times Branch daily. nystatin 2020-0 Yes [id number] Apply to [facility] 100,000 2-05 affected [facility] of unit/gram 00:00: area(s) 3 [facility] ointment 00 (three) Medical times Branch daily. nystatin 2020-0 Yes [id number] Apply to [facility] 100,000 2-05 affected [facility] of unit/gram 00:00: area(s) 3 [facility] ointment 00 (three) Medical times Branch daily. nystatin 2020-0 Yes [id number] Apply to [facility] 100,000 2-05 affected [facility] of unit/gram 00:00: area(s) 3 [facility] ointment 00 (three) Medical times Branch daily. nystatin 2020-0 Yes [id number] Apply to [facility] 100,000 2-05 affected [facility] of unit/gram 00:00: area(s) 3 [facility] ointment 00 (three) Medical times Branch daily. nystatin 2020-0 Yes [id number] Apply to [facility] 100,000 2-05 affected [facility] of unit/gram 00:00: area(s) 3 [facility] ointment 00 (three) Medical times Branch daily. nystatin 2020-0 Yes [id number] Apply to [facility] 100,000 2-05 affected [facility] of unit/gram 00:00: area(s) 3 [facility] ointment 00 (three) Medical times Branch daily. nystatin 2020-0 Yes [id number] Apply to [facility] 100,000 2-05 affected [facility] of unit/gram 00:00: area(s) 3 [facility] ointment 00 (three) Medical times Branch daily. nystatin 2020-0 Yes [id number] Apply to [facility] 100,000 2-05 affected [facility] of unit/gram 00:00: area(s) 3 [facility] ointment 00 (three) Medical times Branch daily. nystatin 2020-0 Yes [id number] Apply to [facility] 100,000 2-05 affected [facility] of unit/gram 00:00: area(s) 3 [facility] ointment 00 (three) Medical times Branch daily. nystatin 2020-0 Yes [id number] Apply to [facility] 100,000 2-05 affected [facility] of unit/gram 00:00: area(s) 3 [facility] ointment 00 (three) Medical times Branch daily. nystatin 2020-0 Yes [id number] Apply to [facility] 100,000 2-05 affected [facility]y of unit/gram 00:00: area(s) 3 [facility] ointment 00 (three) Medical times Branch daily. nystatin 2020-0 Yes [id number] Apply to [facility] 100,000 2-05 affected [facility]y of unit/gram 00:00: area(s) 3 [facility] ointment 00 (three) Medical times Branch daily. nystatin 2020-0 Yes [id number] Apply to [facility] 100,000 2-05 affected [facility] of unit/gram 00:00: area(s) 3 [facility] ointment 00 (three) Medical times Branch daily. nystatin 2020-0 Yes [id number] Apply to [facility] 100,000 2-05 affected [facility] of unit/gram 00:00: area(s) 3 [facility] ointment 00 (three) Medical times Branch daily. nystatin 2020-0 Yes [id number] Apply to [facility] 100,000 2-05 affected [facility] of unit/gram 00:00: area(s) 3 [facility] ointment 00 (three) Medical times Branch daily. nystatin 2020-0 Yes [id number] Apply to [facility] 100,000 2-05 affected [facility]y of unit/gram 00:00: area(s) 3 [facility] ointment 00 (three) Medical times Branch daily. nystatin 2020-0 Yes [id number] Apply to [facility] 100,000 2-05 affected [facility]y of unit/gram 00:00: area(s) 3 [facility] ointment 00 (three) Medical times Branch daily. nystatin 2020-0 Yes [id number] Apply to [facility] 100,000 2-05 affected [facility]y of unit/gram 00:00: area(s) 3 [facility] ointment 00 (three) Medical times Branch daily. nystatin 2020-0 Yes [id number] Apply to [facility] 100,000 2-05 affected [facility]y of unit/gram 00:00: area(s) 3 [facility] ointment 00 (three) Medical times Branch daily. nystatin 2020-0 Yes [id number] Apply to [facility] 100,000 2-05 affected [facility]y of unit/gram 00:00: area(s) 3 [facility] ointment 00 (three) Medical times Branch daily. nystatin 2020-0 Yes [id number] Apply to [facility] 100,000 2-05 affected [facility]y of unit/gram 00:00: area(s) 3 [facility] ointment 00 (three) Medical times Branch daily. nystatin 2020-0 Yes [id number] Apply to [facility] 100,000 2-05 affected [facility]y of unit/gram 00:00: area(s) 3 [facility] ointment 00 (three) Medical times Branch daily. nystatin 2020-0 Yes [id number] Apply to [facility] 100,000 2-05 affected [facility]y of unit/gram 00:00: area(s) 3 [facility] ointment 00 (three) Medical times Branch daily. nystatin 2020-0 Yes [id number] Apply to [facility] 100,000 2-05 affected [facility]y of unit/gram 00:00: area(s) 3 [facility] ointment 00 (three) Medical times Branch daily. nystatin 2020-0 Yes [id number] Apply to [facility] 100,000 2-05 affected [facility]y of unit/gram 00:00: area(s) 3 [facility] ointment 00 (three) Medical times Branch daily. nystatin 2020-0 Yes [id number] Apply to [facility] 100,000 2-05 affected [facility]y of unit/gram 00:00: area(s) 3 [facility] ointment 00 (three) Medical times Branch daily. nystatin 2020-0 Yes [id number] Apply to [facility] 100,000 2-05 affected [facility]y of unit/gram 00:00: area(s) 3 [facility] ointment 00 (three) Medical times Branch daily. nystatin 2020-0 Yes [id number] Apply to [facility] 100,000 2-05 affected [facility] of unit/gram 00:00: area(s) 3 [facility] ointment 00 (three) Medical times Branch daily. nystatin 2020-0 Yes [id number] Apply to [facility] 100,000 2-05 affected [facility] of unit/gram 00:00: area(s) 3 [facility] ointment 00 (three) Medical times Branch daily. nystatin 2020-0 Yes [id number] Apply to [facility] 100,000 2-05 affected [facility] of unit/gram 00:00: area(s) 3 [facility] ointment 00 (three) Medical times Branch daily. nystatin 2020-0 Yes [id number] Apply to [facility] 100,000 2-05 affected [facility] of unit/gram 00:00: area(s) 3 [facility] ointment 00 (three) Medical times Branch daily. nystatin 2020-0 Yes [id number] Apply to [facility] 100,000 2-05 affected [facility]y of unit/gram 00:00: area(s) 3 [facility] ointment 00 (three) Medical times Branch daily. nystatin 2020-0 Yes [id number] Apply to [facility] 100,000 2-05 affected [facility]y of unit/gram 00:00: area(s) 3 [facility] ointment 00 (three) Medical times Branch daily. nystatin 2020-0 Yes [id number] Apply to [facility] 100,000 2-05 affected [facility]y of unit/gram 00:00: area(s) 3 [facility] ointment 00 (three) Medical times Branch daily. nystatin 2020-0 Yes [id number] Apply to [facility] 100,000 2-05 affected [facility]y of unit/gram 00:00: area(s) 3 [facility] ointment 00 (three) Medical times Branch daily. nystatin 2020-0 Yes [id number] Apply to [facility] 100,000 2-05 affected [facility]y of unit/gram 00:00: area(s) 3 [facility] ointment 00 (three) Medical times Branch daily. nystatin 2020-0 Yes [id number] Apply to [facility] 100,000 2-05 affected [facility]y of unit/gram 00:00: area(s) 3 [facility] ointment 00 (three) Medical times Branch daily. nystatin 2020-0 Yes [id number] Apply to [facility] 100,000 2-05 affected [facility]y of unit/gram 00:00: area(s) 3 [facility] ointment 00 (three) Medical times Branch daily. nystatin 2020-0 Yes [id number] Apply to [facility] 100,000 2-05 affected [facility]y of unit/gram 00:00: area(s) 3 [facility] ointment 00 (three) Medical times Branch daily. nystatin 2020-0 Yes [id number] Apply to [facility] 100,000 2-05 affected [facility]y of unit/gram 00:00: area(s) 3 [facility] ointment 00 (three) Medical times Branch daily. nystatin 2020-0 Yes [id number] Apply to [facility] 100,000 2-05 affected [facility]y of unit/gram 00:00: area(s) 3 [facility] ointment 00 (three) Medical times Branch daily. nystatin 2020-0 Yes [id number] Apply to [facility] 100,000 2-05 affected [facility]y of unit/gram 00:00: area(s) 3 [facility] ointment 00 (three) Medical times Branch daily. nystatin 2020-0 Yes [id number] Apply to [facility] 100,000 2-05 affected [facility]y of unit/gram 00:00: area(s) 3 [facility] ointment 00 (three) Medical times Branch daily. nystatin 2020-0 Yes [id number] Apply to [facility] 100,000 2-05 affected ity of unit/gram 00:00: area(s) 3 [facility] ointment 00 (three) Medical times Branch daily. nystatin 2020-0 Yes [id number] Apply to [facility] 100,000 2-05 affected ity of unit/gram 00:00: area(s) 3 [facility] ointment 00 (three) Medical times Branch daily. nystatin 2020-0 Yes [id number] Apply to [facility] 100,000 2-05 affected ity of unit/gram 00:00: area(s) 3 [facility] ointment 00 (three) Medical times Branch daily. nystatin 2020-0 Yes [id number] Apply to [facility] 100,000 2-05 affected [facility]y of unit/gram 00:00: area(s) 3 [facility] ointment 00 (three) Medical times Branch daily. levoFLOXaci levoFLOXaci 2019-1 Yes MAO QD TAKE 1 UT n [...] Tablet Tablet 00 DIRECTED. medroxyPROG 2019-0 Yes [id number] 150mg [facility] ESTERone 5-14 ity of (DEPO-PROVE 18:30: [place] [facility]) 00 Medical injection Branch 150 mg medroxyPROG 2019-0 Yes [id number] 150mg [facility] ESTERone 5-14 ity of (DEPO-PROVE 18:30: [place] [facility]) 00 Medical injection Branch 150 mg medroxyPROG 2019-0 Yes [id number] 150mg [facility] ESTERone 5-14 ity of (DEPO-PROVE 18:30: [place] [facility]) 00 Medical injection Branch 150 mg medroxyPROG 2019-0 Yes [id number] 150mg [facility] ESTERone 5-14 ity of (DEPO-PROVE 18:30: [place] [facility]) 00 Medical injection Branch 150 mg medroxyPROG 2019-0 Yes [id number] 150mg [facility] ESTERone 5-14 ity of (DEPO-PROVE 18:30: [place] [facility]) 00 Medical injection Branch 150 mg medroxyPROG 2019-0 Yes [id number] 150mg [facility] ESTERone 5-14 ity of (DEPO-PROVE 18:30: [place] [facility]) 00 Medical injection Branch 150 mg medroxyPROG 2019-0 Yes [id number] 150mg [facility] ESTERone 5-14 ity of (DEPO-PROVE 18:30: [place] [facility]) 00 Medical injection Branch 150 mg medroxyPROG 2019-0 Yes [id number] 150mg [facility] ESTERone 5-14 ity of (DEPO-PROVE 18:30: [place] [facility]) 00 Medical injection Branch 150 mg medroxyPROG 2019-0 Yes [id number] 150mg [facility] ESTERone 5-14 ity of (DEPO-PROVE 18:30: [place] [facility]) 00 Medical injection Branch 150 mg medroxyPROG 2019-0 Yes [id number] 150mg [facility] ESTERone 5-14 ity of (DEPO-PROVE 18:30: [place] [facility]) 00 Medical injection Branch 150 mg medroxyPROG 2019-0 Yes [id number] 150mg [facility] ESTERone 5-14 ity of (DEPO-PROVE 18:30: [place] [facility]) 00 Medical injection Branch 150 mg medroxyPROG 2019-0 Yes [id number] 150mg [facility] ESTERone 5-14 ity of (DEPO-PROVE 18:30: [place] [facility]) 00 Medical injection Branch 150 mg medroxyPROG 2019-0 Yes [id number] 150mg [facility] ESTERone 5-14 ity of (DEPO-PROVE 18:30: [place] [facility]) 00 Medical injection Branch 150 mg medroxyPROG 2019-0 Yes [id number] 150mg [facility] ESTERone 5-14 ity of (DEPO-PROVE 18:30: [place] [facility]) 00 Medical injection Branch 150 mg medroxyPROG 2019-0 Yes [id number] 150mg [facility] ESTERone 5-14 ity of (DEPO-PROVE 18:30: [place] [facility]) 00 Medical injection Branch 150 mg medroxyPROG 2019-0 Yes [id number] 150mg [facility] ESTERone 5-14 ity of (DEPO-PROVE 18:30: [place] [facility]) 00 Medical injection Branch 150 mg medroxyPROG 2019-0 Yes [id number] 150mg [facility] ESTERone 5-14 ity of (DEPO-PROVE 18:30: [place] [facility]) 00 Medical injection Branch 150 mg medroxyPROG 2019-0 Yes [id number] 150mg [facility] ESTERone 5-14 ity of (DEPO-PROVE 18:30: [place] [facility]) 00 Medical injection Branch 150 mg medroxyPROG 2019-0 Yes [id number] 150mg [facility] ESTERone 5-14 ity of (DEPO-PROVE 18:30: [place] [facility]) 00 Medical injection Branch 150 mg medroxyPROG 2019-0 Yes [id number] 150mg [facility] ESTERone 5-14 ity of (DEPO-PROVE 18:30: [place] [facility]) 00 Medical injection Branch 150 mg medroxyPROG 2019-0 Yes [id number] 150mg [facility] ESTERone 5-14 ity of (DEPO-PROVE 18:30: [place] [facility]) 00 Medical injection Branch 150 mg medroxyPROG 2019-0 Yes [id number] 150mg [facility] ESTERone 5-14 ity of (DEPO-PROVE 18:30: [place] [facility]) 00 Medical injection Branch 150 mg medroxyPROG 2019-0 Yes [id number] 150mg [facility] ESTERone 5-14 ity of (DEPO-PROVE 18:30: [place] [facility]) 00 Medical injection Branch 150 mg medroxyPROG 2019-0 Yes [id number] 150mg [facility] ESTERone 5-14 ity of (DEPO-PROVE 18:30: [place] [facility]) 00 Medical injection Branch 150 mg medroxyPROG 2019-0 Yes [id number] 150mg [facility] ESTERone 5-14 ity of (DEPO-PROVE 18:30: [place] [facility]) 00 Medical injection Branch 150 mg medroxyPROG 2019-0 Yes [id number] 150mg [facility] ESTERone 5-14 ity of (DEPO-PROVE 18:30: [place] [facility]) 00 Medical injection Branch 150 mg medroxyPROG 2019-0 Yes [id number] 150mg [facility] ESTERone 5-14 ity of (DEPO-PROVE 18:30: [place] [facility]) 00 Medical injection Branch 150 mg medroxyPROG 2019-0 Yes [id number] 150mg [facility] ESTERone 5-14 ity of (DEPO-PROVE 18:30: [place] [facility]) 00 Medical injection Branch 150 mg medroxyPROG 2019-0 Yes [id number] 150mg [facility] ESTERone 5-14 ity of (DEPO-PROVE 18:30: [place] [facility]) 00 Medical injection Branch 150 mg medroxyPROG 2019-0 Yes [id number] 150mg [facility] ESTERone 5-14 ity of (DEPO-PROVE 18:30: [place] [facility]) 00 Medical injection Branch 150 mg medroxyPROG 2019-0 Yes [id number] 150mg [facility] ESTERone 5-14 ity of (DEPO-PROVE 18:30: [place] [facility]) 00 Medical injection Branch 150 mg medroxyPROG 2019-0 Yes [id number] 150mg [facility] ESTERone 5-14 ity of (DEPO-PROVE 18:30: [place] [facility]) 00 Medical injection Branch 150 mg medroxyPROG 2019-0 Yes [id number] 150mg [facility] ESTERone 5-14 ity of (DEPO-PROVE 18:30: [place] [facility]) 00 Medical injection Branch 150 mg medroxyPROG 2019-0 Yes [id number] 150mg [facility] ESTERone 5-14 ity of (DEPO-PROVE 18:30: [place] [facility]) 00 Medical injection Branch 150 mg medroxyPROG 2019-0 Yes [id number] 150mg [facility] ESTERone 5-14 ity of (DEPO-PROVE 18:30: [place] RA) 00 [facility] 150 mg medroxyPROG 2019-0 Yes [id number] 150mg [facility] 5-14 [facility]y of (DEPO-PROVE 18:30: [place] RA) 00 [facility] 150 mg medroxyPROG 2019-0 Yes [id number] 150mg [facility] ESTERone 5-14 ity of (DEPO-PROVE 18:30: [place] RA) 00 [facility] 150 mg medroxyPROG 2019-0 Yes [id number] 150mg [facility] ESTERone 5-14 ity of (DEPO-PROVE 18:30: [place] RA) 00 [facility] 150 mg medroxyPROG 2019-0 Yes [id number] 150mg [facility] ESTERone 5-14 ity of (DEPO-PROVE 18:30: [place] RA) 00 [facility] 150 mg medroxyPROG 2019-0 Yes [id number] 150mg [facility] ESTERone 5-14 ity of (DEPO-PROVE 18:30: [place] RA) 00 [facility] 150 mg medroxyPROG 2019-0 Yes [id number] 150mg [facility] ESTERone 5-14 ity of (DEPO-PROVE 18:30: [place] RA) 00 [facility] 150 mg medroxyPROG 2019-0 Yes [id number] 150mg [facility] ESTERone 5-14 ity of (DEPO-PROVE 18:30: [place] RA) 00 [facility] 150 mg medroxyPROG 2019-0 Yes [id number] 150mg [facility] ESTERone 5-14 ity of (DEPO-PROVE 18:30: [place] RA) 00 [facility] injection [facility] 150 mg medroxyPROG 2019-0 Yes [id number] 150mg [facility] ESTERone 5-14 ity of (DEPO-PROVE 18:30: [place] RA) 00 [facility] injection [facility] 150 mg medroxyPROG 2019-0 Yes [id number] 150mg [facility] ESTERone 5-14 ity of (DEPO-PROVE 18:30: [place] RA) 00 [facility] injection [facility] 150 mg medroxyPROG 2019-0 Yes [id number] 150mg [facility] ESTERone 5-14 ity of (DEPO-PROVE 18:30: [place] RA) 00 [facility] injection [facility] 150 mg medroxyPROG 2019-0 Yes [id number] 150mg [facility] ESTERone 5-14 ity of (DEPO-PROVE 18:30: [place] RA) 00 [facility] injection [facility] 150 mg medroxyPROG 2019-0 Yes [id number] 150mg [facility] ESTERone 5-14 ity of (DEPO-PROVE 18:30: [place] RA) 00 [facility] injection [facility] 150 mg medroxyPROG 2019-0 Yes [id number] 150mg [facility] ESTERone 5-14 ity of (DEPO-PROVE 18:30: [place] RA) 00 [facility] injection [facility] 150 mg Keppra 500 Keppra 500 2018-0 Yes M.D. U T MG Oral MG Oral 09-07 [facility] Tablet Tablet 00:00: ans 00 Immunizations Ordered Immunization Filled Immunization Date Status Commen ts Source Name Name SARS-COV-2 COVID-19 2021-08-06 Completed Unive rsity of PFIZER VACCINE 00:00:00 [facility] SARS-COV-2 COVID-19 2021-08-06 Completed Unive rsity of PFIZER VACCINE 00:00:00 [facility] SARS-COV-2 COVID-19 2021-08-06 Completed Unive rsity of PFIZER VACCINE 00:00:00 [facility] SARS-COV-2 COVID-19 2021-08-06 Completed Unive rsity of PFIZER VACCINE 00:00:00 [facility] SARS-COV-2 COVID-19 2021-08-06 Completed [facility]ive rsity of PFIZER VACCINE 00:00:00 [facility] SARS-COV-2 COVID-19 2021-08-06 Completed Unive rsity of PFIZER VACCINE 00:00:00 [facility] SARS-COV-2 COVID-19 2021-08-06 Completed Unive rsity of PFIZER VACCINE 00:00:00 [facility] SARS-COV-2 COVID-19 2021-08-06 Completed Unive rsity of PFIZER VACCINE 00:00:00 [facility] SARS-COV-2 COVID-19 2021-08-06 Completed Unive rsity of PFIZER VACCINE 00:00:00 [facility] SARS-COV-2 COVID-19 2021-08-06 Completed Unive rsity of PFIZER VACCINE 00:00:00 [facility] SARS-COV-2 COVID-19 2021-08-06 Completed Unive rsity of PFIZER VACCINE 00:00:00 [facility] SARS-COV-2 COVID-19 2021-08-06 Completed Unive rsity of PFIZER VACCINE 00:00:00 [facility] SARS-COV-2 COVID-19 2021-08-06 Completed Unive rsity of PFIZER VACCINE 00:00:00 [facility] SARS-COV-2 COVID-19 2021-08-06 Completed Unive rsity of PFIZER VACCINE 00:00:00 [facility] SARS-COV-2 COVID-19 2021-08-06 Completed Unive rsity of PFIZER VACCINE 00:00:00 [facility] SARS-COV-2 COVID-19 2021-08-06 Completed Unive rsity of PFIZER VACCINE 00:00:00 [facility] SARS-COV-2 COVID-19 2021-08-06 Completed Unive rsity of PFIZER VACCINE 00:00:00 [facility] SARS-COV-2 COVID-19 2021-08-06 Completed Unive rsity of PFIZER VACCINE 00:00:00 [facility] SARS-COV-2 COVID-19 2021-08-06 Completed Unive rsity of PFIZER VACCINE 00:00:00 [facility] SARS-COV-2 COVID-19 2021-08-06 Completed Unive rsity of PFIZER VACCINE 00:00:00 [facility] SARS-COV-2 COVID-19 2021-08-06 Completed Unive rsity of PFIZER VACCINE 00:00:00 [facility] SARS-COV-2 COVID-19 2021-08-06 Completed Unive rsity of PFIZER VACCINE 00:00:00 [facility] SARS-COV-2 COVID-19 2021-08-06 Completed Unive rsity of PFIZER VACCINE 00:00:00 [facility] SARS-COV-2 COVID-19 2021-08-06 Completed Unive rsity of PFIZER VACCINE 00:00:00 [facility] SARS-COV-2 COVID-19 2021-08-06 Completed Unive rsity of PFIZER VACCINE 00:00:00 [facility] SARS-COV-2 COVID-19 2021-08-06 Completed Unive rsity of PFIZER VACCINE 00:00:00 [facility] PFIZER COVID-19 MRNA 2021-08-06 Completed [facility] VACCINATION 00:00:00 [facility] PFIZER COVID-19 MRNA 2021-08-06 Completed [facility] VACCINATION 00:00:00 [facility] PFIZER COVID-19 MRNA 2021-08-06 Completed [facility] odist VACCINATION 00:00:00 [facility] PFIZER COVID-19 MRNA 2021-08-06 Completed Meth odist VACCINATION 00:00:00 [facility] PFIZER COVID-19 MRNA 2021-08-06 Completed Meth odist VACCINATION 00:00:00 [facility] PFIZER COVID-19 MRNA 2021-08-06 Completed [facility] odist VACCINATION 00:00:00 [facility] PFIZER COVID-19 MRNA 2021-08-06 Completed Meth odist VACCINATION 00:00:00 [facility] PFIZER COVID-19 MRNA 2021-08-06 Completed Meth odist VACCINATION 00:00:00 [facility] SARS-COV-2 COVID-19 2021-07-09 Completed Unive rsity of PFIZER VACCINE 00:00:00 [facility] Influenza Virus 2021-07-09 Completed Universit y of Vaccine Quad .5 mL IM 00:00:00 [facility] SARS-COV-2 COVID-19 2021-07-09 Completed Unive rsity of PFIZER VACCINE 00:00:00 [facility] Influenza Virus 2021-07-09 Completed [facility]it y of Vaccine Quad .5 mL IM 00:00:00 [facility] SARS-COV-2 COVID-19 2021-07-09 Completed Unive rsity of PFIZER VACCINE 00:00:00 [facility] Influenza Virus 2021-07-09 Completed [facility]it y of Vaccine Quad .5 mL IM 00:00:00 [facility] SARS-COV-2 COVID-19 2021-07-09 Completed Unive rsity of PFIZER VACCINE 00:00:00 [facility] Influenza Virus 2021-07-09 Completed Universit y of Vaccine Quad .5 mL IM 00:00:00 [facility] SARS-COV-2 COVID-19 2021-07-09 Completed Unive rsity of PFIZER VACCINE 00:00:00 [facility] Influenza Virus 2021-07-09 Completed [facility]it y of Vaccine Quad .5 mL IM 00:00:00 [facility] SARS-COV-2 COVID-19 2021-07-09 Completed Unive rsity of PFIZER VACCINE 00:00:00 [facility] Influenza Virus 2021-07-09 Completed [facility]it y of Vaccine Quad .5 mL IM 00:00:00 [facility] SARS-COV-2 COVID-19 2021-07-09 Completed Unive rsity of PFIZER VACCINE 00:00:00 [facility] Influenza Virus 2021-07-09 Completed [facility]it y of Vaccine Quad .5 mL IM 00:00:00 [facility] SARS-COV-2 COVID-19 2021-07-09 Completed Unive rsity of PFIZER VACCINE 00:00:00 [facility] Influenza Virus 2021-07-09 Completed [facility]it y of Vaccine Quad .5 mL IM 00:00:00 [facility] SARS-COV-2 COVID-19 2021-07-09 Completed [facility]ive rsity of PFIZER VACCINE 00:00:00 [facility] Influenza Virus 2021-07-09 Completed [facility]it y of Vaccine Quad .5 mL IM 00:00:00 [facility] SARS-COV-2 COVID-19 2021-07-09 Completed Unive rsity of PFIZER VACCINE 00:00:00 [facility] Influenza Virus 2021-07-09 Completed [facility]it y of Vaccine Quad .5 mL IM 00:00:00 [facility] SARS-COV-2 COVID-19 2021-07-09 Completed Unive rsity of PFIZER VACCINE 00:00:00 [facility] Influenza Virus 2021-07-09 Completed [facility]it y of Vaccine Quad .5 mL IM 00:00:00 [facility] SARS-COV-2 COVID-19 2021-07-09 Completed Unive rsity of PFIZER VACCINE 00:00:00 [facility] Influenza Virus 2021-07-09 Completed [facility] of Vaccine Quad .5 mL IM 00:00:00 [facility] SARS-COV-2 COVID-19 2021-07-09 Completed Unive rsity of PFIZER VACCINE 00:00:00 [facility] Influenza Virus 2021-07-09 Completed [facility]it y of Vaccine Quad .5 mL IM 00:00:00 [facility] SARS-COV-2 COVID-19 2021-07-09 Completed Unive rsity of PFIZER VACCINE 00:00:00 [facility] Influenza Virus 2021-07-09 Completed [facility]it y of Vaccine Quad .5 mL IM 00:00:00 [facility] SARS-COV-2 COVID-19 2021-07-09 Completed Unive rsity of PFIZER VACCINE 00:00:00 [facility] Influenza Virus 2021-07-09 Completed [facility]it y of Vaccine Quad .5 mL IM 00:00:00 [facility] SARS-COV-2 COVID-19 2021-07-09 Completed Unive rsity of PFIZER VACCINE 00:00:00 [facility] Influenza Virus 2021-07-09 Completed [facility]it y of Vaccine Quad .5 mL IM 00:00:00 [facility] SARS-COV-2 COVID-19 2021-07-09 Completed Unive rsity of PFIZER VACCINE 00:00:00 [facility] Influenza Virus 2021-07-09 Completed [facility] of Vaccine Quad .5 mL IM 00:00:00 [facility] SARS-COV-2 COVID-19 2021-07-09 Completed Unive rsity of PFIZER VACCINE 00:00:00 [facility] Influenza Virus 2021-07-09 Completed [facility] of Vaccine Quad .5 mL IM 00:00:00 [facility] SARS-COV-2 COVID-19 2021-07-09 Completed Unive rsity of PFIZER VACCINE 00:00:00 [facility] Influenza Virus 2021-07-09 Completed [facility] y of Vaccine Quad .5 mL IM 00:00:00 [facility] SARS-COV-2 COVID-19 2021-07-09 Completed Unive rsity of PFIZER VACCINE 00:00:00 [facility] Influenza Virus 2021-07-09 Completed [facility]it y of Vaccine Quad .5 mL IM 00:00:00 [facility] SARS-COV-2 COVID-19 2021-07-09 Completed Unive rsity of PFIZER VACCINE 00:00:00 [facility] Influenza Virus 2021-07-09 Completed [facility]it y of Vaccine Quad .5 mL IM 00:00:00 [facility] SARS-COV-2 COVID-19 2021-07-09 Completed Unive rsity of PFIZER VACCINE 00:00:00 [facility] Influenza Virus 2021-07-09 Completed [facility] y of Vaccine Quad .5 mL IM 00:00:00 [facility] SARS-COV-2 COVID-19 2021-07-09 Completed Unive rsity of PFIZER VACCINE 00:00:00 [facility] Influenza Virus 2021-07-09 Completed [facility]it y of Vaccine Quad .5 mL IM 00:00:00 [facility] SARS-COV-2 COVID-19 2021-07-09 Completed Unive rsity of PFIZER VACCINE 00:00:00 [facility] Influenza Virus 2021-07-09 Completed [facility]it y of Vaccine Quad .5 mL IM 00:00:00 [facility] SARS-COV-2 COVID-19 2021-07-09 Completed Unive rsity of PFIZER VACCINE 00:00:00 [facility] Influenza Virus 2021-07-09 Completed [facility]it y of Vaccine Quad .5 mL IM 00:00:00 [facility] SARS-COV-2 COVID-19 2021-07-09 Completed Unive rsity of PFIZER VACCINE 00:00:00 [facility] Influenza Virus 2021-07-09 Completed [facility]it y of Vaccine Quad .5 mL IM 00:00:00 [facility] PFIZER COVID-19 MRNA 2021-07-09 Completed Meth odist VACCINATION 00:00:00 [facility] PFIZER COVID-19 MRNA 2021-07-09 Completed Meth odist VACCINATION 00:00:00 [facility] PFIZER COVID-19 MRNA 2021-07-09 Completed Meth odist VACCINATION 00:00:00 [facility] PFIZER COVID-19 MRNA 2021-07-09 Completed [facility] VACC[facility]ATION 00:00:00 [facility] PFIZER COVID-19 MRNA 2021-07-09 Completed [facility] VACCINATION 00:00:00 [facility] PFIZER COVID-19 MRNA 2021-07-09 Completed [facility] VACCINATION 00:00:00 [facility] PFIZER COVID-19 MRNA 2021-07-09 Completed Meth odist VACCINATION 00:00:00 [facility] PFIZER COVID-19 MRNA 2021-07-09 Completed Meth odist VACCINATION 00:00:00 [facility] PFIZER COVID-19 MRNA 2021-07-09 Completed Meth odist VACCINATION 00:00:00 [facility] PFIZER COVID-19 MRNA 2021-07-09 Completed Meth odist VACCINATION 00:00:00 [facility] Tetanus/Diptheria 2016-08-11 Completed Univers ity of 00:00:00 [facility] Varicella 2016-08-11 Completed University of (varivax)(chicken 00:00:00 [place] [facility] pox) [facility] Tetanus/Diptheria 2016-08-11 Completed Univers ity of 00:00:00 [facility] Varicella 2016-08-11 Completed University of (varivax)(chicken 00:00:00 [place] [facility] pox) [facility] Tetanus/Diptheria 2016-08-11 Completed Univers ity of 00:00:00 [facility] Varicella 2016-08-11 Completed University of (varivax)(chicken 00:00:00 [place] [facility] pox) [facility] Tetanus/Diptheria 2016-08-11 Completed Univers ity of 00:00:00 [facility] Varicella 2016-08-11 Completed University of (varivax)(chicken 00:00:00 [place] [facility] pox) [facility] Tetanus/Diptheria 2016-08-11 Completed Univers ity of 00:00:00 [facility] Varicella 2016-08-11 Completed University of (varivax)(chicken 00:00:00 [place] [facility] pox) [facility] Tetanus/Diptheria 2016-08-11 Completed Univers ity of 00:00:00 [facility] Varicella 2016-08-11 Completed University of (varivax)(chicken 00:00:00 [place] [facility] pox) [facility] Tetanus/Diptheria 2016-08-11 Completed Univers ity of 00:00:00 [facility] Varicella 2016-08-11 Completed University of (varivax)(chicken 00:00:00 [place] [facility] pox) [facility] Tetanus/Diptheria 2016-08-11 Completed Univers ity of 00:00:00 [facility] Varicella 2016-08-11 Completed University of (varivax)(chicken 00:00:00 [place] [facility] pox) [facility] Tetanus/Diptheria 2016-08-11 Completed Univers ity of 00:00:00 [facility] Varicella 2016-08-11 Completed University of (varivax)(chicken 00:00:00 [place] [facility] pox) [facility] Tetanus/Diptheria 2016-08-11 Completed Univers ity of 00:00:00 [facility] Varicella 2016-08-11 Completed University of (varivax)(chicken 00:00:00 [place] [facility] pox) [facility] Tetanus/Diptheria 2016-08-11 Completed Univers ity of 00:00:00 [facility] Varicella 2016-08-11 Completed University of (varivax)(chicken 00:00:00 [place] [facility] pox) [facility] Tetanus/Diptheria 2016-08-11 Completed Univers ity of 00:00:00 [facility] Varicella 2016-08-11 Completed University of (varivax)(chicken 00:00:00 [place] [facility] pox) [facility] Tetanus/Diptheria 2016-08-11 Completed Univers ity of 00:00:00 [facility] Varicella 2016-08-11 Completed University of (varivax)(chicken 00:00:00 [place] [facility] pox) [facility] Tetanus/Diptheria 2016-08-11 Completed Univers ity of 00:00:00 [facility] Varicella 2016-08-11 Completed University of (varivax)(chicken 00:00:00 [place] [facility] pox) [facility] Tetanus/Diptheria 2016-08-11 Completed Univers ity of 00:00:00 [facility] Varicella 2016-08-11 Completed University of (varivax)(chicken 00:00:00 [place] [facility] pox) [facility] Tetanus/Diptheria 2016-08-11 Completed Univers ity of 00:00:00 [facility] Varicella 2016-08-11 Completed University of (varivax)(chicken 00:00:00 [place] [facility] pox) [facility] Tetanus/Diptheria 2016-08-11 Completed Univers ity of 00:00:00 [facility] Varicella 2016-08-11 Completed University of (varivax)(chicken 00:00:00 [place] [facility] pox) [facility] Tetanus/Diptheria 2016-08-11 Completed Univers ity of 00:00:00 [facility] Varicella 2016-08-11 Completed University of (varivax)(chicken 00:00:00 [place] [facility] pox) [facility] Tetanus/Diptheria 2016-08-11 Completed Univers ity of 00:00:00 [facility] Varicella 2016-08-11 Completed University of (varivax)(chicken 00:00:00 [place] [facility] pox) [facility] Tetanus/Diptheria 2016-08-11 Completed Univers ity of 00:00:00 [facility] Varicella 2016-08-11 Completed University of (varivax)(chicken 00:00:00 [place] [facility] pox) Branch Tetanus/Diptheria 2016-08-11 Completed Univers ity of 00:00:00 [facility] Varicella 2016-08-11 Completed University of (varivax)(chicken 00:00:00 [place] [facility] pox) Branch Tetanus/Diptheria 2016-08-11 Completed Univers ity of 00:00:00 [facility] Varicella 2016-08-11 Completed University of (varivax)(chicken 00:00:00 [place] [facility] pox) [facility] Tetanus/Diptheria 2016-08-11 Completed Univers ity of 00:00:00 [facility] Varicella 2016-08-11 Completed University of (varivax)(chicken 00:00:00 [place] [facility] pox) Branch Tetanus/Diptheria 2016-08-11 Completed Univers ity of 00:00:00 [facility] Varicella 2016-08-11 Completed [facility] of (varivax)(chicken 00:00:00 [place] [facility] pox) [facility] Tetanus/Diptheria 2016-08-11 Completed Univers ity of 00:00:00 [facility] Varicella 2016-08-11 Completed University of (varivax)(chicken 00:00:00 [place] [facility] pox) Branch Tetanus/Diptheria 2016-08-11 Completed Univers ity of 00:00:00 [facility] Varicella 2016-08-11 Completed University [...] HEPATITIS A 2008-09-27 Completed University of 00:00:00 [facility] HPV 2008-09-27 Completed University of 00:00:00 [facility] HEPATITIS A 2008-09-27 Completed University of 00:00:00 [facility] HPV 2008-09-27 Completed University of 00:00:00 [facility] HEPATITIS A 2008-09-27 Completed University of 00:00:00 [facility] HPV 2008-09-27 Completed University of 00:00:00 [facility] HEPATITIS A 2008-09-27 Completed University of 00:00:00 [facility] HPV 2008-09-27 Completed University of 00:00:00 [facility] HEPATITIS A 2008-09-27 Completed University of 00:00:00 [facility] HPV 2008-09-27 Completed University of 00:00:00 [facility] HEPATITIS A 2008-09-27 Completed University of 00:00:00 [facility] HPV 2008-09-27 Completed University of 00:00:00 [facility] HEPATITIS A 2008-09-27 Completed University of 00:00:00 [facility] HPV 2008-09-27 Completed University of 00:00:00 [facility] HEPATITIS A 2008-09-27 Completed University of 00:00:00 [facility] HPV 2008-09-27 Completed University of 00:00:00 [facility] HEPATITIS A 2008-09-27 Completed University of 00:00:00 [facility] HPV 2008-09-27 Completed University of 00:00:00 [facility] HEPATITIS A 2008-09-27 Completed University of [...] Branch HPV 2008-09-27 Completed University of 00:00:00 [facility] HEPATITIS A 2008-09-27 Completed University [...] Branch HPV 2008-09-27 Completed University of 00:00:00 [facility] HEPATITIS A 2008-09-27 Completed University [...] Branch HPV 2008-03-06 Completed University of 00:00:00 [facility] HEPATITIS A 2008-03-06 Completed University of 00:00:00 [facility] HPV 2008-03-06 Completed University of 00:00:00 [facility] HEPATITIS A 2008-03-06 Completed University of 00:00:00 [facility] HPV 2008-03-06 Completed University of 00:00:00 [facility] HEPATITIS A 2008-03-06 Completed University of 00:00:00 [facility] HPV 2008-03-06 Completed University of 00:00:00 [facility] HEPATITIS A 2008-03-06 Completed University of 00:00:00 [facility] HPV 2008-03-06 Completed University of 00:00:00 [facility] HEPATITIS A 2008-03-06 Completed University of 00:00:00 [facility] HPV 2008-03-06 Completed University of 00:00:00 [facility] HEPATITIS A 2008-03-06 Completed University of 00:00:00 [facility] HPV 2008-03-06 Completed University of 00:00:00 [facility] HEPATITIS A 2008-03-06 Completed University of 00:00:00 [facility] HPV 2008-03-06 Completed University of 00:00:00 [facility] HEPATITIS A 2008-03-06 Completed University of 00:00:00 [facility] HPV 2008-03-06 Completed University of 00:00:00 [facility] HEPATITIS A 2008-03-06 Completed University of 00:00:00 [facility] HPV 2008-03-06 Completed University of 00:00:00 [facility] HEPATITIS A 2008-03-06 Completed University of 00:00:00 [facility] HPV 2008-03-06 Completed University of 00:00:00 [facility] HEPATITIS A 2008-03-06 Completed University of 00:00:00 [facility] HPV 2008-03-06 Completed University of 00:00:00 [facility] HEPATITIS A 2008-03-06 Completed University of 00:00:00 [facility] HPV 2008-03-06 Completed [facility] of 00:00:00 [facility] Meningococcal 2007-12-29 Completed [facility] Polysaccharide 00:00:00 [place] [facility] (groups A, C, Y and Branc h W-135) conjugate vaccine (MCV4P) TDAP 2007-12-29 Completed [facility] of 00:00:00 [facility] Meningococcal 2007-12-29 Completed [facility] Polysaccharide 00:00:00 [place] [facility] (groups A, C, Y and Branc h W-135) conjugate vaccine (MCV4P) TDAP 2007-12-29 Completed [facility] of 00:00:00 [facility] Meningococcal 2007-12-29 Completed [facility] of Polysaccharide 00:00:00 [place] [facility] (groups A, C, Y and Branc h W-135) conjugate vaccine (MCV4P) TDAP 2007-12-29 Completed [facility] of 00:00:00 [facility] Meningococcal 2007-12-29 Completed [facility] of Polysaccharide 00:00:00 [place] [facility] (groups A, C, Y and Branc h W-135) conjugate vaccine (MCV4P) TDAP 2007-12-29 Completed [facility] of 00:00:00 [facility] Meningococcal 2007-12-29 Completed [facility] of Polysaccharide 00:00:00 [place] [facility] (groups A, C, Y and Branc h W-135) conjugate vaccine (MCV4P) TDAP 2007-12-29 Completed [facility] of 00:00:00 [facility] Meningococcal 2007-12-29 Completed [facility] Polysaccharide 00:00:00 [place] [facility] (groups A, C, Y and Branc h W-135) conjugate vaccine (MCV4P) TDAP 2007-12-29 Completed [facility] of 00:00:00 [facility] Meningococcal 2007-12-29 Completed [facility] Polysaccharide 00:00:00 [place] [facility] (groups A, C, Y and Branc h W-135) conjugate vaccine (MCV4P) TDAP 2007-12-29 Completed [facility] of 00:00:00 [facility] Meningococcal 2007-12-29 Completed [facility] of Polysaccharide 00:00:00 [place] [facility] (groups A, C, Y and Branc h W-135) conjugate vaccine (MCV4P) TDAP 2007-12-29 Completed [facility] of 00:00:00 [facility] Meningococcal 2007-12-29 Completed [facility] of Polysaccharide 00:00:00 [place] [facility] (groups A, C, Y and Branc h W-135) conjugate vaccine (MCV4P) TDAP 2007-12-29 Completed [facility] of 00:00:00 [facility] Meningococcal 2007-12-29 Completed [facility] of Polysaccharide 00:00:00 [place] [facility] (groups A, C, Y and Branc h W-135) conjugate vaccine (MCV4P) TDAP 2007-12-29 Completed [facility] of 00:00:00 [facility] Meningococcal 2007-12-29 Completed [facility] of Polysaccharide 00:00:00 [place] [facility] (groups A, C, Y and Branc h W-135) conjugate vaccine (MCV4P) TDAP 2007-12-29 Completed [facility] of 00:00:00 [facility] Meningococcal 2007-12-29 Completed [facility] of Polysaccharide 00:00:00 [place] [facility] (groups A, C, Y and Branc h W-135) conjugate vaccine (MCV4P) TDAP 2007-12-29 Completed [facility] of 00:00:00 [facility] Meningococcal 2007-12-29 Completed [facility] of Polysaccharide 00:00:00 [place] [facility] (groups A, C, Y and Branc h W-135) conjugate vaccine (MCV4P) TDAP 2007-12-29 Completed [facility] of 00:00:00 [facility] Meningococcal 2007-12-29 Completed [facility] Polysaccharide 00:00:00 [facility] (groups A, C, Y and Branc h W-135) conjugate vaccine (MCV4P) TDAP 2007-12-29 Completed [facility] 00:00:00 [facility] Meningococcal 2007-12-29 Completed [facility] Polysaccharide 00:00:00 [facility] (groups A, C, Y and Branc h W-135) conjugate vaccine (MCV4P) TDAP 2007-12-29 Completed [facility] 00:00:00 [facility] Meningococcal 2007-12-29 Completed [facility] Polysaccharide 00:00:00 [facility] (groups A, C, Y and Branc h W-135) conjugate vaccine (MCV4P) TDAP 2007-12-29 Completed [facility] 00:00:00 [facility] Meningococcal 2007-12-29 Completed [facility] Polysaccharide 00:00:00 [facility] (groups A, C, Y and Branc h W-135) conjugate vaccine (MCV4P) TDAP 2007-12-29 Completed [facility] 00:00:00 [facility] Meningococcal 2007-12-29 Completed [facility] Polysaccharide 00:00:00 [facility] (groups A, C, Y and Branc h W-135) conjugate vaccine (MCV4P) TDAP 2007-12-29 Completed [facility] 00:00:00 [facility] Meningococcal 2007-12-29 Completed [facility] Polysaccharide 00:00:00 [facility] (groups A, C, Y and Branc h W-135) conjugate vaccine (MCV4P) TDAP 2007-12-29 Completed [facility] 00:00:00 [facility] Meningococcal 2007-12-29 Completed [facility] Polysaccharide 00:00:00 [facility] (groups A, C, Y and Branc h W-135) conjugate vaccine (MCV4P) TDAP 2007-12-29 Completed [facility] 00:00:00 [facility] Meningococcal 2007-12-29 Completed [facility] Polysaccharide 00:00:00 [facility] (groups A, C, Y and Branc h W-135) conjugate vaccine (MCV4P) TDAP 2007-12-29 Completed [facility] 00:00:00 [facility] Meningococcal 2007-12-29 Completed [facility] Polysaccharide 00:00:00 [facility] (groups A, C, Y and Branc h W-135) conjugate vaccine (MCV4P) TDAP 2007-12-29 Completed [facility] 00:00:00 [facility] Meningococcal 2007-12-29 Completed [facility] Polysaccharide 00:00:00 [facility] (groups A, C, Y and Branc h W-135) conjugate vaccine (MCV4P) TDAP 2007-12-29 Completed [facility] 00:00:00 [facility] Meningococcal 2007-12-29 Completed [facility] Polysaccharide 00:00:00 [facility] (groups A, C, Y and Branc h W-135) conjugate vaccine (MCV4P) TDAP 2007-12-29 Completed [facility] 00:00:00 [facility] Meningococcal 2007-12-29 Completed [facility] Polysaccharide 00:00:00 [facility] (groups A, C, Y and Branc h W-135) conjugate vaccine (MCV4P) TDAP 2007-12-29 Completed [facility] 00:00:00 [facility] Meningococcal 2007-12-29 Completed [facility] Polysaccharide 00:00:00 [facility] (groups A, C, Y and Branc h W-135) conjugate vaccine (MCV4P) TDAP 2007-12-29 Completed [facility] 00:00:00 [facility] DTaP, Unspecified 1998-01-03 Completed [facility] Formulation 00:00:00 [facility] Hep B, Adol or Pedi 1998-01-03 Completed [facility]ive rsity of Dosage 00:00:00 [facility] Poliovirus, Live, 1998-01-03 Completed [facility] Oral, Trivalent 00:00:00 [facility] DTaP, Unspecified 1998-01-03 Completed [facility] Formulation 00:00:00 [facility] Hep B, Adol or Pedi 1998-01-03 Completed [facility]ive rsity of Dosage 00:00:00 [facility] Poliovirus, Live, 1998-01-03 Completed [facility] Oral, Trivalent 00:00:00 [facility] DTaP, Unspecified 1998-01-03 Completed [facility] Formulation 00:00:00 [facility] Hep B, Adol or Pedi 1998-01-03 Completed [facility] of Dosage 00:00:00 [facility] Poliovirus, Live, 1998-01-03 Completed [facility] Oral, Trivalent 00:00:00 [facility] DTaP, Unspecified 1998-01-03 Completed [facility] Formulation 00:00:00 [facility] Hep B, Adol or Pedi 1998-01-03 Completed [facility]ive rsity of Dosage 00:00:00 [facility] Poliovirus, Live, 1998-01-03 Completed [facility] of Oral, Trivalent 00:00:00 [facility] DTaP, Unspecified 1998-01-03 Completed [facility] Formulation 00:00:00 [facility] Hep B, Adol or Pedi 1998-01-03 Completed [facility] rs[facility] of Dosage 00:00:00 [facility] Poliovirus, Live, 1998-01-03 Completed [facility] Oral, Trivalent 00:00:00 [facility] DTaP, Unspecified 1998-01-03 Completed [facility] Formulation 00:00:00 [facility] Hep B, Adol or Pedi 1998-01-03 Completed [facility]ive rs[facility] of Dosage 00:00:00 [facility] Poliovirus, Live, 1998-01-03 Completed [facility] Oral, Trivalent 00:00:00 [facility] DTaP, Unspecified 1998-01-03 Completed [facility] Formulation 00:00:00 [facility] Hep B, Adol or Pedi 1998-01-03 Completed [facility] rs[facility] of Dosage 00:00:00 [facility] Poliovirus, Live, 1998-01-03 Completed [facility] Oral, Trivalent 00:00:00 [facility] DTaP, Unspecified 1998-01-03 Completed [facility] of Formulation 00:00:00 [facility] Hep B, Adol or Pedi 1998-01-03 Completed [facility] rs[facility] of Dosage 00:00:00 [facility] Poliovirus, Live, 1998-01-03 Completed [facility] Oral, Trivalent 00:00:00 [facility] DTaP, Unspecified 1998-01-03 Completed [facility] Formulation 00:00:00 [facility] Hep B, Adol or Pedi 1998-01-03 Completed [facility]ive rsity of Dosage 00:00:00 [facility] Poliovirus, Live, 1998-01-03 Completed [facility] Oral, Trivalent 00:00:00 [facility] DTaP, Unspecified 1998-01-03 Completed [facility] of Formulation 00:00:00 [facility] Hep B, Adol or Pedi 1998-01-03 Completed [facility]ive rsity of Dosage 00:00:00 [facility] Poliovirus, Live, 1998-01-03 Completed [facility] Oral, Trivalent 00:00:00 [facility] DTaP, Unspecified 1998-01-03 Completed [facility] Formulation 00:00:00 [facility] Hep B, Adol or Pedi 1998-01-03 Completed [facility] rs[facility] of Dosage 00:00:00 [facility] Poliovirus, Live, 1998-01-03 Completed [facility] Oral, Trivalent 00:00:00 [facility] DTaP, Unspecified 1998-01-03 Completed [facility] of Formulation 00:00:00 [facility] Hep B, Adol or Pedi 1998-01-03 Completed [facility]ive rsity of Dosage 00:00:00 [facility] Poliovirus, Live, 1998-01-03 Completed [facility] Oral, Trivalent 00:00:00 [facility] DTaP, Unspecified 1998-01-03 Completed [facility] Formulation 00:00:00 [facility] Hep B, Adol or Pedi 1998-01-03 Completed [facility]ive rsity of Dosage 00:00:00 [facility] Poliovirus, Live, 1998-01-03 Completed [facility] of Oral, Trivalent 00:00:00 [facility] DTaP, Unspecified 1998-01-03 Completed [facility] of Formulation 00:00:00 [facility] Hep B, Adol or Pedi 1998-01-03 Completed [facility] rsity of Dosage 00:00:00 [facility] Poliovirus, Live, 1998-01-03 Completed [facility] of Oral, Trivalent 00:00:00 [facility] DTaP, Unspecified 1998-01-03 Completed [facility] Formulation 00:00:00 [facility] Hep B, Adol or Pedi 1998-01-03 Completed [facility]ive rsity of Dosage 00:00:00 [facility] Poliovirus, Live, 1998-01-03 Completed [facility] Oral, Trivalent 00:00:00 [facility] DTaP, Unspecified 1998-01-03 Completed [facility] of Formulation 00:00:00 [facility] Hep B, Adol or Pedi 1998-01-03 Completed [facility] rs[facility] of Dosage 00:00:00 [facility] Poliovirus, Live, 1998-01-03 Completed [facility] Oral, Trivalent 00:00:00 [facility] DTaP, Unspecified 1998-01-03 Completed [facility] Formulation 00:00:00 [facility] Hep B, Adol or Pedi 1998-01-03 Completed [facility]ive rsity of Dosage 00:00:00 [facility] Poliovirus, Live, 1998-01-03 Completed [facility] Oral, Trivalent 00:00:00 [facility] DTaP, Unspecified 1998-01-03 Completed [facility] Formulation 00:00:00 [facility] Hep B, Adol or Pedi 1998-01-03 Completed [facility] rsity of Dosage 00:00:00 [facility] Poliovirus, Live, 1998-01-03 Completed [facility] Oral, Trivalent 00:00:00 [facility] DTaP, Unspecified 1998-01-03 Completed [facility] of Formulation 00:00:00 [facility] Hep B, Adol or Pedi 1998-01-03 Completed [facility]ive rsity of Dosage 00:00:00 [facility] Poliovirus, Live, 1998-01-03 Completed [facility] of Oral, Trivalent 00:00:00 [facility] DTaP, Unspecified 1998-01-03 Completed [facility] Formulation 00:00:00 [facility] Hep B, Adol or Pedi 1998-01-03 Completed [facility] rsity of Dosage 00:00:00 [facility] Poliovirus, Live, 1998-01-03 Completed [facility] Oral, Trivalent 00:00:00 [facility] DTaP, Unspecified 1998-01-03 Completed [facility] of Formulation 00:00:00 [facility] Hep B, Adol or Pedi 1998-01-03 Completed [facility]ive rsity of Dosage 00:00:00 [facility] Poliovirus, Live, 1998-01-03 Completed [facility] of Oral, Trivalent 00:00:00 [facility] DTaP, Unspecified 1998-01-03 Completed [facility] of Formulation 00:00:00 [facility] Hep B, Adol or Pedi 1998-01-03 Completed [facility] rsity of Dosage 00:00:00 [facility] Poliovirus, Live, 1998-01-03 Completed [facility] Oral, Trivalent 00:00:00 [facility] DTaP, Unspecified 1998-01-03 Completed [facility] of Formulation 00:00:00 [facility] Hep B, Adol or Pedi 1998-01-03 Completed [facility]ive rsity of Dosage 00:00:00 [facility] Poliovirus, Live, 1998-01-03 Completed [facility] of Oral, Trivalent 00:00:00 [facility] DTaP, Unspecified 1998-01-03 Completed [facility] Formulation 00:00:00 [facility] Hep B, Adol or Pedi 1998-01-03 Completed [facility] rsity of Dosage 00:00:00 [facility] Poliovirus, Live, 1998-01-03 Completed [facility] Oral, Trivalent 00:00:00 [facility] DTaP, Unspecified 1998-01-03 Completed [facility] of Formulation 00:00:00 [facility] Hep B, Adol or Pedi 1998-01-03 Completed [facility]ive rsity of Dosage 00:00:00 [facility] Poliovirus, Live, 1998-01-03 Completed [facility] Oral, Trivalent 00:00:00 [facility] DTaP, Unspecified 1998-01-03 Completed [facility] Formulation 00:00:00 [facility] Hep B, Adol or Pedi 1998-01-03 Completed [facility]ive rsity of Dosage 00:00:00 [facility] Poliovirus, Live, 1998-01-03 Completed [facility] Oral, Trivalent 00:00:00 [facility] Hep B, Unspecified 1997-03-28 Completed Univer sity of Formulation 00:00:00 [facility] Hep B, Adol or Pedi 1997-03-28 Completed [facility]ive rsity of Dosage 00:00:00 [facility] MMR 1997-03-28 Completed [facility] 00:00:00 [facility] Hep B, Unspecified 1997-03-28 Completed Univer sity of Formulation 00:00:00 [facility] Hep B, Adol or Pedi 1997-03-28 Completed [facility]ive rsity of Dosage 00:00:00 [facility] MMR 1997-03-28 Completed [facility] 00:00:00 [facility] Hep B, Unspecified 1997-03-28 Completed Univer sity of Formulation 00:00:00 [facility] Hep B, Adol or Pedi 1997-03-28 Completed [facility]ive rsity of Dosage 00:00:00 [facility] MMR 1997-03-28 Completed [facility] 00:00:00 [facility] Hep B, Unspecified 1997-03-28 Completed Univer sity of Formulation 00:00:00 [facility] Hep B, Adol or Pedi 1997-03-28 Completed [facility]ive rsity of Dosage 00:00:00 [facility] MMR 1997-03-28 Completed [facility] 00:00:00 [facility] Hep B, Unspecified 1997-03-28 Completed [facility]iver sity of Formulation 00:00:00 [facility] Hep B, Adol or Pedi 1997-03-28 Completed [facility]ive rsity of Dosage 00:00:00 [facility] MMR 1997-03-28 Completed [facility] 00:00:00 [facility] Hep B, Unspecified 1997-03-28 Completed [facility]iver sity of Formulation 00:00:00 [facility] Hep B, Adol or Pedi 1997-03-28 Completed [facility]ive rsity of Dosage 00:00:00 [facility] MMR 1997-03-28 Completed [facility] 00:00:00 [facility] Hep B, Unspecified 1997-03-28 Completed [facility] of Formulation 00:00:00 [facility] Hep B, Adol or Pedi 1997-03-28 Completed [facility] rs[facility] of Dosage 00:00:00 [facility] MMR 1997-03-28 Completed [facility] 00:00:00 [facility] Hep B, Unspecified 1997-03-28 Completed [facility]iver [facility]ity of Formulation 00:00:00 [facility] Hep B, Adol or Pedi 1997-03-28 Completed [facility] rs[facility] of Dosage 00:00:00 [facility] MMR 1997-03-28 Completed [facility] 00:00:00 [facility] Hep B, Unspecified 1997-03-28 Completed [facility] of Formulation 00:00:00 [facility] Hep B, Adol or Pedi 1997-03-28 Completed [facility] rs[facility] of Dosage 00:00:00 [facility] MMR 1997-03-28 Completed [facility] 00:00:00 [facility] Hep B, Unspecified 1997-03-28 Completed [facility]ity of Formulation 00:00:00 [facility] Hep B, Adol or Pedi 1997-03-28 Completed [facility] rs[facility] of Dosage 00:00:00 [facility] MMR 1997-03-28 Completed [facility] 00:00:00 [facility] Hep B, Unspecified 1997-03-28 Completed [facility]ity of Formulation 00:00:00 [facility] Hep B, Adol or Pedi 1997-03-28 Completed [facility] rsity of Dosage 00:00:00 [facility] MMR 1997-03-28 Completed [facility] 00:00:00 [facility] Hep B, Unspecified 1997-03-28 Completed [facility] of Formulation 00:00:00 [facility] Hep B, Adol or Pedi 1997-03-28 Completed [facility] rsity of Dosage 00:00:00 [facility] MMR 1997-03-28 Completed [facility] 00:00:00 [facility] Hep B, Unspecified 1997-03-28 Completed [facility] of Formulation 00:00:00 [facility] Hep B, Adol or Pedi 1997-03-28 Completed [facility] rs[facility] of Dosage 00:00:00 [facility] MMR 1997-03-28 Completed [facility] 00:00:00 [facility] Hep B, Unspecified 1997-03-28 Completed [facility] of Formulation 00:00:00 [facility] Hep B, Adol or Pedi 1997-03-28 Completed [facility] rs[facility] of Dosage 00:00:00 [facility] MMR 1997-03-28 Completed [facility] 00:00:00 [facility] Hep B, Unspecified 1997-03-28 Completed [facility] of Formulation 00:00:00 [facility] Hep B, Adol or Pedi 1997-03-28 Completed [facility] rs[facility] of Dosage 00:00:00 [facility] MMR 1997-03-28 Completed [facility] 00:00:00 [facility] Hep B, Unspecified 1997-03-28 Completed [facility] of Formulation 00:00:00 [facility] Hep B, Adol or Pedi 1997-03-28 Completed [facility] rs[facility] of Dosage 00:00:00 [facility] MMR 1997-03-28 Completed [facility] 00:00:00 [facility] Hep B, Unspecified 1997-03-28 Completed [facility] of Formulation 00:00:00 [facility] Hep B, Adol or Pedi 1997-03-28 Completed [facility] rs[facility] of Dosage 00:00:00 [facility] MMR 1997-03-28 Completed [facility] 00:00:00 [facility] Hep B, Unspecified 1997-03-28 Completed [facility] of Formulation 00:00:00 [facility] Hep B, Adol or Pedi 1997-03-28 Completed [facility] rs[facility] of Dosage 00:00:00 [facility] MMR 1997-03-28 Completed [facility] 00:00:00 [facility] Hep B, Unspecified 1997-03-28 Completed [facility] of Formulation 00:00:00 [facility] Hep B, Adol or Pedi 1997-03-28 Completed [facility] rsity of Dosage 00:00:00 [facility] MMR 1997-03-28 Completed [facility] 00:00:00 [facility] Hep B, Unspecified 1997-03-28 Completed [facility] of Formulation 00:00:00 [facility] Hep B, Adol or Pedi 1997-03-28 Completed [facility] rsity of Dosage 00:00:00 [facility] MMR 1997-03-28 Completed [facility] 00:00:00 [facility] Hep B, Unspecified 1997-03-28 Completed [facility] of Formulation 00:00:00 [facility] Hep B, Adol or Pedi 1997-03-28 Completed [facility] rs[facility] of Dosage 00:00:00 [facility] MMR 1997-03-28 Completed [facility] 00:00:00 [facility] Hep B, Unspecified 1997-03-28 Completed [facility] of Formulation 00:00:00 [facility] Hep B, Adol or Pedi 1997-03-28 Completed [facility] rsity of Dosage 00:00:00 [facility] MMR 1997-03-28 Completed [facility] 00:00:00 [facility] Hep B, Unspecified 1997-03-28 Completed [facility] of Formulation 00:00:00 [facility] Hep B, Adol or Pedi 1997-03-28 Completed [facility] rs[facility] of Dosage 00:00:00 [facility] MMR 1997-03-28 Completed [facility] 00:00:00 [facility] Hep B, Unspecified 1997-03-28 Completed [facility]ity of Formulation 00:00:00 [facility] Hep B, Adol or Pedi 1997-03-28 Completed [facility] rsity of Dosage 00:00:00 [facility] MMR 1997-03-28 Completed [facility] 00:00:00 [facility] Hep B, Unspecified 1997-03-28 Completed [facility]iver [facility] of Formulation 00:00:00 [facility] Hep B, Adol or Pedi 1997-03-28 Completed [facility] rsity of Dosage 00:00:00 [facility] MMR 1997-03-28 Completed [facility] 00:00:00 [facility] Hep B, Unspecified 1997-03-28 Completed [facility] of Formulation 00:00:00 [facility] Hep B, Adol or Pedi 1997-03-28 Completed [facility] rs[facility] of Dosage 00:00:00 [facility] 1997-03-28 Completed [facility] 00:00:00 [facility] DTP 1994-05-19 Completed [facility] 00:00:00 [facility] Hib-HbOC 1994-05-19 Completed [facility] 00:00:00 [facility] 1994-05-19 Completed [facility] 00:00:00 [facility] Poliovirus, Live, 1994-05-19 Completed [facility] of Oral, Trivalent 00:00:00 [facility] DTP 1994-05-19 Completed [facility] 00:00:00 [facility] Hib-HbOC 1994-05-19 Completed [facility] 00:00:00 [facility] MMR 1994-05-19 Completed [facility] 00:00:00 [facility] Poliovirus, Live, 1994-05-19 Completed [facility] of Oral, Trivalent 00:00:00 [facility] DT 1994-05-19 Completed [facility] 00:00:00 [facility] Hib-HbOC 1994-05-19 Completed [facility] 00:00:00 [facility] MMR 1994-05-19 Completed [facility] 00:00:00 [facility] Poliovirus, Live, 1994-05-19 Completed [facility] of Oral, Trivalent 00:00:00 [facility] DT 1994-05-19 Completed [facility] 00:00:00 [facility] Hib-HbOC 1994-05-19 Completed [facility] 00:00:00 [facility] MMR 1994-05-19 Completed [facility] 00:00:00 [facility] Poliovirus, Live, 1994-05-19 Completed [facility] of Oral, Trivalent 00:00:00 [facility] 1994-05-19 Completed [facility] 00:00:00 [facility] Hib-HbOC 1994-05-19 Completed [facility] 00:00:00 [facility] MMR 1994-05-19 Completed [facility] 00:00:00 [facility] Poliovirus, Live, 1994-05-19 Completed [facility] of Oral, Trivalent 00:00:00 [facility] 1994-05-19 Completed [facility] 00:00:00 [facility] Hib-HbOC 1994-05-19 Completed [facility] 00:00:00 [facility] MMR 1994-05-19 Completed [facility] 00:00:00 [facility] Poliovirus, Live, 1994-05-19 Completed [facility] of Oral, Trivalent 00:00:00 [facility] DT 1994-05-19 Completed [facility] 00:00:00 [facility] Hib-HbOC 1994-05-19 Completed [facility] 00:00:00 [facility] MMR 1994-05-19 Completed [facility] 00:00:00 [facility] Poliovirus, Live, 1994-05-19 Completed [facility] of Oral, Trivalent 00:00:00 [facility] 1994-05-19 Completed [facility] 00:00:00 [facility] Hib-HbOC 1994-05-19 Completed [facility] 00:00:00 [facility] MMR 1994-05-19 Completed [facility] 00:00:00 [facility] Poliovirus, Live, 1994-05-19 Completed [facility] of Oral, Trivalent 00:00:00 [facility] DT 1994-05-19 Completed [facility] 00:00:00 [facility] Hib-HbOC 1994-05-19 Completed [facility] 00:00:00 [facility] MMR 1994-05-19 Completed [facility] 00:00:00 [facility] Poliovirus, Live, 1994-05-19 Completed [facility] of Oral, Trivalent 00:00:00 [facility] DT 1994-05-19 Completed [facility] 00:00:00 [facility] Hib-HbOC 1994-05-19 Completed [facility] 00:00:00 [facility] MMR 1994-05-19 Completed [facility] 00:00:00 [facility] Poliovirus, Live, 1994-05-19 Completed [facility] Oral, Trivalent 00:00:00 [facility] 1994-05-19 Completed [facility] 00:00:00 [facility] Hib-HbOC 1994-05-19 Completed [facility] 00:00:00 [facility] MMR 1994-05-19 Completed [facility] 00:00:00 [facility] Poliovirus, Live, 1994-05-19 Completed [facility] Oral, Trivalent 00:00:00 [facility] 1994-05-19 Completed [facility] 00:00:00 [facility] Hib-HbOC 1994-05-19 Completed [facility] 00:00:00 [facility] MMR 1994-05-19 Completed [facility] 00:00:00 [facility] Poliovirus, Live, 1994-05-19 Completed [facility] Oral, Trivalent 00:00:00 [facility] DT 1994-05-19 Completed [facility] 00:00:00 [facility] Hib-HbOC 1994-05-19 Completed [facility] 00:00:00 [facility] MMR 1994-05-19 Completed [facility] 00:00:00 [facility] Poliovirus, Live, 1994-05-19 Completed [facility] Oral, Trivalent 00:00:00 [facility] 1994-05-19 Completed [facility] 00:00:00 [facility] Hib-HbOC 1994-05-19 Completed [facility] 00:00:00 [facility] MMR 1994-05-19 Completed [facility] 00:00:00 [facility] Poliovirus, Live, 1994-05-19 Completed [facility] of Oral, Trivalent 00:00:00 [facility] 1994-05-19 Completed [facility] 00:00:00 [facility] Hib-HbOC 1994-05-19 Completed [facility] 00:00:00 [facility] 1994-05-19 Completed [facility] 00:00:00 [facility] Poliovirus, Live, 1994-05-19 Completed [facility] of Oral, Trivalent 00:00:00 [facility] 1994-05-19 Completed [facility] 00:00:00 [facility] Hib-HbOC 1994-05-19 Completed [facility] 00:00:00 [facility] 1994-05-19 Completed [facility] 00:00:00 [facility] Poliovirus, Live, 1994-05-19 Completed [facility] Oral, Trivalent 00:00:00 [facility] 1994-05-19 Completed [facility] 00:00:00 [facility] Hib-HbOC 1994-05-19 Completed [facility] 00:00:00 [facility] 1994-05-19 Completed [facility] 00:00:00 [facility] Poliovirus, Live, 1994-05-19 Completed [facility] Oral, Trivalent 00:00:00 [facility] 1994-05-19 Completed [facility] 00:00:00 [facility] Hib-HbOC 1994-05-19 Completed [facility] 00:00:00 [facility] 1994-05-19 Completed [facility] 00:00:00 [facility] Poliovirus, Live, 1994-05-19 Completed [facility] Oral, Trivalent 00:00:00 [facility] 1994-05-19 Completed [facility] 00:00:00 [facility] Hib-HbOC 1994-05-19 Completed [facility] 00:00:00 [facility] 1994-05-19 Completed [facility] 00:00:00 [facility] Poliovirus, Live, 1994-05-19 Completed [facility] Oral, Trivalent 00:00:00 [facility] 1994-05-19 Completed [facility] 00:00:00 [facility] Hib-HbOC 1994-05-19 Completed [facility] 00:00:00 [facility] 1994-05-19 Completed [facility] 00:00:00 [facility] Poliovirus, Live, 1994-05-19 Completed [facility] Oral, Trivalent 00:00:00 [facility] 1994-05-19 Completed [facility] 00:00:00 [facility] Hib-HbOC 1994-05-19 Completed [facility] 00:00:00 [facility] 1994-05-19 Completed [facility] 00:00:00 [facility] Poliovirus, Live, 1994-05-19 Completed [facility] Oral, Trivalent 00:00:00 [facility] 1994-05-19 Completed [facility] 00:00:00 [facility] Hib-HbOC 1994-05-19 Completed [facility] 00:00:00 [facility] 1994-05-19 Completed [facility] 00:00:00 [facility] Poliovirus, Live, 1994-05-19 Completed [facility] Oral, Trivalent 00:00:00 [facility] 1994-05-19 Completed [facility] 00:00:00 [facility] Hib-HbOC 1994-05-19 Completed [facility] 00:00:00 [facility] 1994-05-19 Completed [facility] 00:00:00 [facility] Poliovirus, Live, 1994-05-19 Completed [facility] Oral, Trivalent 00:00:00 [facility] 1994-05-19 Completed [facility] 00:00:00 [facility] Hib-HbOC 1994-05-19 Completed [facility] 00:00:00 [facility] 1994-05-19 Completed [facility] 00:00:00 [facility] Poliovirus, Live, 1994-05-19 Completed [facility] Oral, Trivalent 00:00:00 [facility] 1994-05-19 Completed [facility] 00:00:00 [facility] Hib-HbOC 1994-05-19 Completed [facility] 00:00:00 [facility] 1994-05-19 Completed [facility] 00:00:00 [facility] Poliovirus, Live, 1994-05-19 Completed [facility] Oral, Trivalent 00:00:00 [facility] 1994-05-19 Completed [facility] 00:00:00 [facility] Hib-HbOC 1994-05-19 Completed [facility] 00:00:00 [facility] 1994-05-19 Completed [facility] 00:00:00 [facility] Poliovirus, Live, 1994-05-19 Completed [facility] Oral, Trivalent 00:00:00 [facility] Heamophilus Influenza 1994-05-09 Completed Uni versity of B 00:00:00 [facility] Heamophilus Influenza 1994-05-09 Completed [facility] vers[facility] B 00:00:00 [facility] Heamophilus Influenza 1994-05-09 Completed [facility] vers[facility] B 00:00:00 [facility] Heamophilus Influenza 1994-05-09 Completed [facility] vers[facility] B 00:00:00 [facility] Heamophilus Influenza 1994-05-09 Completed [facility] vers[facility] B 00:00:00 [facility] Heamophilus Influenza 1994-05-09 Completed [facility] B 00:00:00 [facility] Heamophilus Influenza 1994-05-09 Completed [facility] B 00:00:00 [facility] Heamophilus Influenza 1994-05-09 Completed [facility] B 00:00:00 [facility] Heamophilus Influenza 1994-05-09 Completed [facility] B 00:00:00 [facility] Heamophilus Influenza 1994-05-09 Completed [facility] vers[facility] B 00:00:00 [facility] Heamophilus Influenza 1994-05-09 Completed [facility] B 00:00:00 [facility] Heamophilus Influenza 1994-05-09 Completed [facility] B 00:00:00 [facility] Heamophilus Influenza 1994-05-09 Completed [facility] B 00:00:00 [facility] Heamophilus Influenza 1994-05-09 Completed [facility] B 00:00:00 [facility] Heamophilus Influenza 1994-05-09 Completed [facility] B 00:00:00 [facility] Heamophilus Influenza 1994-05-09 Completed [facility] B 00:00:00 [facility] Heamophilus Influenza 1994-05-09 Completed [facility] B 00:00:00 [facility] Heamophilus Influenza 1994-05-09 Completed [facility] B 00:00:00 [facility] Heamophilus Influenza 1994-05-09 Completed [facility] B 00:00:00 [facility] Heamophilus Influenza 1994-05-09 Completed [facility] B 00:00:00 [facility] Heamophilus Influenza 1994-05-09 Completed [facility] vers[facility] of B 00:00:00 [facility] Heamophilus Influenza 1994-05-09 Completed [facility] B 00:00:00 [facility] Heamophilus Influenza 1994-05-09 Completed [facility] B 00:00:00 [facility] Heamophilus Influenza 1994-05-09 Completed [facility] B 00:00:00 [facility] Heamophilus Influenza 1994-05-09 Completed [facility] B 00:00:00 [facility] Heamophilus Influenza 1994-05-09 Completed [facility] vers[facility] B 00:00:00 [facility] Hep B, Unspecified 1993-04-29 Completed [facility] of Formulation 00:00:00 [facility] Hep B, Adol or Pedi 1993-04-29 Completed Unive rsity of Dosage 00:00:00 [facility] Hep B, Unspecified 1993-04-29 Completed [facility] of Formulation 00:00:00 [facility] Hep B, Adol or Pedi 1993-04-29 Completed [facility]ive rs[facility] of Dosage 00:00:00 [facility] Hep B, Unspecified 1993-04-29 Completed [facility] of Formulation 00:00:00 [facility] Hep B, Adol or Pedi 1993-04-29 Completed [facility] rs[facility] of Dosage 00:00:00 [facility] Hep B, Unspecified 1993-04-29 Completed [...] 1993-04-29 Completed [facility]ive rs[facility] of Dosage 00:00:00 [facility] Hep B, Unspecified 1993-04-29 Completed [...] 1993-04-29 Completed [facility] rs[facility] of Dosage 00:00:00 [facility] DTP 1992 Completed [facility] 00:00:00 [facility] Heamophilus Influenza 1992 Completed [facility] vers[facility] B 00:00:00 [facility] Hib-HbOC 1992 Completed [facility] 00:00:00 [facility] DTP 1992 Completed [facility] 00:00:00 [facility] Heamophilus Influenza 1992 Completed [facility] vers[facility] B 00:00:00 [facility] Hib-HbOC 1992 Completed [facility] 00:00:00 [facility] DTP 1992 Completed [facility] 00:00:00 [facility] Heamophilus Influenza 1992 Completed [facility] vers[facility] B 00:00:00 [facility] Hib-HbOC 1992 Completed [facility] 00:00:00 [facility] DTP 1992 Completed [facility] 00:00:00 [facility] Heamophilus Influenza 1992 Completed [facility] vers[facility] B 00:00:00 [facility] Hib-HbOC 1992 Completed [facility] 00:00:00 [facility] DTP 1992 Completed [facility] 00:00:00 [facility] Heamophilus Influenza 1992 Completed [facility] vers[facility] B 00:00:00 [facility] Hib-HbOC 1992 Completed [facility] 00:00:00 [facility] DTP 1992 Completed [facility] 00:00:00 [facility] Heamophilus Influenza 1992 Completed [facility] B 00:00:00 [facility] Hib-HbOC 1992 Completed [facility] 00:00:00 [facility] DTP 1992 Completed [facility] 00:00:00 [facility] Heamophilus Influenza 1992 Completed [facility] B 00:00:00 [facility] Hib-HbOC 1992 Completed [facility] 00:00:00 [facility] DTP 1992 Completed [facility] 00:00:00 [facility] Heamophilus Influenza 1992 Completed [facility] B 00:00:00 [facility] Hib-HbOC 1992 Completed [facility] 00:00:00 [facility] DTP 1992 Completed [facility] 00:00:00 [facility] Heamophilus Influenza 1992 Completed [facility] B 00:00:00 [facility] Hib-HbOC 1992 Completed [facility] 00:00:00 [facility] DTP 1992 Completed [facility] 00:00:00 [facility] Heamophilus Influenza 1992 Completed [facility] B 00:00:00 [facility] Hib-HbOC 1992 Completed [facility] 00:00:00 [facility] DTP 1992 Completed [facility] 00:00:00 [facility] Heamophilus Influenza 1992 Completed [facility] B 00:00:00 [facility] Hib-HbOC 1992 Completed [facility] 00:00:00 [facility] DTP 1992 Completed [facility] 00:00:00 [facility] Heamophilus Influenza 1992 Completed [facility] B 00:00:00 [facility] Hib-HbOC 1992 Completed [facility] 00:00:00 [facility] DTP 1992 Completed [facility] 00:00:00 [facility] Heamophilus Influenza 1992 Completed [facility] B 00:00:00 [facility] Hib-HbOC 1992 Completed [facility] 00:00:00 [facility] DTP 1992 Completed [facility] 00:00:00 [facility] Heamophilus Influenza 1992 Completed [facility] B 00:00:00 [facility] Hib-HbOC 1992 Completed [facility] 00:00:00 [facility] DTP 1992 Completed [facility] 00:00:00 [facility] Heamophilus Influenza 1992 Completed [facility] B 00:00:00 [facility] Hib-HbOC 1992 Completed [facility] 00:00:00 [facility] DTP 1992 Completed [facility] 00:00:00 [facility] Heamophilus Influenza 1992 Completed [facility] B 00:00:00 [facility] Hib-HbOC 1992 Completed [facility] 00:00:00 [facility] DTP 1992 Completed [facility] 00:00:00 [facility] Heamophilus Influenza 1992 Completed [facility] B 00:00:00 [facility] Hib-HbOC 1992 Completed [facility] 00:00:00 [facility] DTP 1992 Completed [facility] 00:00:00 [facility] Heamophilus Influenza 1992 Completed [facility] B 00:00:00 [facility] Hib-HbOC 1992 Completed [facility] 00:00:00 [facility] DTP 1992 Completed [facility] 00:00:00 [facility] Heamophilus Influenza 1992 Completed [facility] B 00:00:00 [facility] Hib-HbOC 1992 Completed [facility] 00:00:00 [facility] DTP 1992 Completed [facility] 00:00:00 [facility] Heamophilus Influenza 1992 Completed [facility] B 00:00:00 [facility] Hib-HbOC 1992 Completed [facility] 00:00:00 [facility] DTP 1992 Completed [facility] 00:00:00 [facility] Heamophilus Influenza 1992 Completed [facility] B 00:00:00 [facility] Hib-HbOC 1992 Completed [facility] 00:00:00 [facility] DTP 1992 Completed [facility] 00:00:00 [facility] Heamophilus Influenza 1992 Completed [facility] B 00:00:00 [facility] Hib-HbOC 1992 Completed [facility] 00:00:00 [facility] DTP 1992 Completed [facility] 00:00:00 [facility] Heamophilus Influenza 1992 Completed [facility] B 00:00:00 [facility] Hib-HbOC 1992 Completed [facility] 00:00:00 [facility] DTP 1992 Completed [facility] 00:00:00 [facility] Heamophilus Influenza 1992 Completed [facility] B 00:00:00 [facility] Hib-HbOC 1992 Completed [facility] 00:00:00 [facility] DTP 1992 Completed [facility] 00:00:00 [facility] Heamophilus Influenza 1992 Completed [facility] vers[facility] B 00:00:00 [facility] Hib-HbOC 1992 Completed [facility] 00:00:00 [facility] DTP 1992 Completed [facility] 00:00:00 [facility] Heamophilus Influenza 1992 Completed [facility] B 00:00:00 [facility] Hib-HbOC 1992 Completed [facility] 00:00:00 [facility] DTP 1992 Completed [facility] 00:00:00 [facility] Heamophilus Influenza 1992 Completed [facility] B 00:00:00 [facility] Hib-HbOC 1992 Completed [facility] 00:00:00 [facility] Poliovirus, Live, 1992 Completed [facility] Oral, Trivalent 00:00:00 [facility] 1992 Completed [facility] 00:00:00 [facility] Heamophilus Influenza 1992 Completed [facility] vers[facility] B 00:00:00 [facility] Hib-HbOC 1992 Completed [facility] 00:00:00 [facility] Poliovirus, Live, 1992 Completed [facility] Oral, Trivalent 00:00:00 [facility] DTP 1992 Completed [facility] 00:00:00 [facility] Heamophilus Influenza 1992 Completed [facility] vers[facility] B 00:00:00 [facility] Hib-HbOC 1992 Completed [facility] 00:00:00 [facility] Poliovirus, Live, 1992 Completed [facility] Oral, Trivalent 00:00:00 [facility] DTP 1992 Completed [facility] 00:00:00 [facility] Heamophilus Influenza 1992 Completed [facility] B 00:00:00 [facility] Hib-HbOC 1992 Completed [facility] 00:00:00 [facility] Poliovirus, Live, 1992 Completed [facility] Oral, Trivalent 00:00:00 [facility] DTP 1992 Completed [facility] 00:00:00 [facility] Heamophilus Influenza 1992 Completed [facility] B 00:00:00 [facility] Hib-HbOC 1992 Completed [facility] 00:00:00 [facility] Poliovirus, Live, 1992 Completed [facility] Oral, Trivalent 00:00:00 [facility] 1992 Completed [facility] 00:00:00 [facility] Heamophilus Influenza 1992 Completed [facility] B 00:00:00 [facility] Hib-HbOC 1992 Completed [facility] 00:00:00 [facility] Poliovirus, Live, 1992 Completed [facility] Oral, Trivalent 00:00:00 [facility] 1992 Completed [facility] 00:00:00 [facility] Heamophilus Influenza 1992 Completed [facility] B 00:00:00 [facility] Hib-HbOC 1992 Completed [facility] 00:00:00 [facility] Poliovirus, Live, 1992 Completed [facility] Oral, Trivalent 00:00:00 [facility] 1992 Completed [facility] 00:00:00 [facility] Heamophilus Influenza 1992 Completed [facility] B 00:00:00 [facility] Hib-HbOC 1992 Completed [facility] 00:00:00 [facility] Poliovirus, Live, 1992 Completed [facility] Oral, Trivalent 00:00:00 [facility] 1992 Completed [facility] 00:00:00 [facility] Heamophilus Influenza 1992 Completed [facility] B 00:00:00 [facility] Hib-HbOC 1992 Completed [facility] 00:00:00 [facility] Poliovirus, Live, 1992 Completed [facility] Oral, Trivalent 00:00:00 [facility] 1992 Completed [facility] 00:00:00 [facility] Heamophilus Influenza 1992 Completed [facility] B 00:00:00 [facility] Hib-HbOC 1992 Completed [facility] 00:00:00 [facility] Poliovirus, Live, 1992 Completed [facility] Oral, Trivalent 00:00:00 [facility] 1992 Completed [facility] 00:00:00 [facility] Heamophilus Influenza 1992 Completed [facility] B 00:00:00 [facility] Hib-HbOC 1992 Completed [facility] 00:00:00 [facility] Poliovirus, Live, 1992 Completed [facility] Oral, Trivalent 00:00:00 [facility] 1992 Completed [facility] 00:00:00 [facility] Heamophilus Influenza 1992 Completed [facility] B 00:00:00 [facility] Hib-HbOC 1992 Completed [facility] 00:00:00 [facility] Poliovirus, Live, 1992 Completed [facility] Oral, Trivalent 00:00:00 [facility] 1992 Completed [facility] 00:00:00 [facility] Heamophilus Influenza 1992 Completed [facility] B 00:00:00 [facility] Hib-HbOC 1992 Completed [facility] 00:00:00 [facility] Poliovirus, Live, 1992 Completed [facility] Oral, Trivalent 00:00:00 [facility] 1992 Completed [facility] 00:00:00 [facility] Heamophilus Influenza 1992 Completed [facility] B 00:00:00 [facility] Hib-HbOC 1992 Completed [facility] 00:00:00 [facility] Poliovirus, Live, 1992 Completed [facility] Oral, Trivalent 00:00:00 [facility] 1992 Completed [facility] 00:00:00 [facility] Heamophilus Influenza 1992 Completed [facility] B 00:00:00 [facility] Hib-HbOC 1992 Completed [facility] 00:00:00 [facility] Poliovirus, Live, 1992 Completed [facility] Oral, Trivalent 00:00:00 [facility] 1992 Completed [facility] 00:00:00 [facility] Heamophilus Influenza 1992 Completed [facility] B 00:00:00 [facility] Hib-HbOC 1992 Completed [facility] 00:00:00 [facility] Poliovirus, Live, 1992 Completed [facility] Oral, Trivalent 00:00:00 [facility] DT 1992 Completed [facility] 00:00:00 [facility] Heamophilus Influenza 1992 Completed [facility] B 00:00:00 [facility] Hib-HbOC 1992 Completed [facility] 00:00:00 [facility] Poliovirus, Live, 1992 Completed [facility] Oral, Trivalent 00:00:00 [facility] DT 1992 Completed [facility] 00:00:00 [facility] Heamophilus Influenza 1992 Completed [facility] B 00:00:00 [facility] Hib-HbOC 1992 Completed [facility] 00:00:00 [facility] Poliovirus, Live, 1992 Completed [facility] Oral, Trivalent 00:00:00 [facility] DT 1992 Completed [facility] 00:00:00 [facility] Heamophilus Influenza 1992 Completed [facility] B 00:00:00 [facility] Hib-HbOC 1992 Completed [facility] 00:00:00 [facility] Poliovirus, Live, 1992 Completed [facility] Oral, Trivalent 00:00:00 [facility] 1992 Completed [facility] 00:00:00 [facility] Heamophilus Influenza 1992 Completed [facility] B 00:00:00 [facility] Hib-HbOC 1992 Completed [facility] 00:00:00 [facility] Poliovirus, Live, 1992 Completed [facility] Oral, Trivalent 00:00:00 [facility] DTP 1992 Completed [facility] 00:00:00 [facility] Heamophilus Influenza 1992 Completed [facility] B 00:00:00 [facility] Hib-HbOC 1992 Completed [facility] 00:00:00 [facility] Poliovirus, Live, 1992 Completed [facility] Oral, Trivalent 00:00:00 [facility] 1992 Completed [facility] 00:00:00 [facility] Heamophilus Influenza 1992 Completed [facility] B 00:00:00 [facility] Hib-HbOC 1992 Completed [facility] 00:00:00 [facility] Poliovirus, Live, 1992 Completed [facility] Oral, Trivalent 00:00:00 [facility] 1992 Completed [facility] 00:00:00 [facility] Heamophilus Influenza 1992 Completed [facility] B 00:00:00 [facility] Hib-HbOC 1992 Completed [facility] 00:00:00 [facility] Poliovirus, Live, 1992 Completed [facility] of Oral, Trivalent 00:00:00 [facility] 1992 Completed [facility] 00:00:00 [facility] Heamophilus Influenza 1992 Completed [facility] B 00:00:00 [facility] Hib-HbOC 1992 Completed [facility] 00:00:00 [facility] Poliovirus, Live, 1992 Completed [facility] Oral, Trivalent 00:00:00 [facility] 1992 Completed [facility] 00:00:00 [facility] Heamophilus Influenza 1992 Completed [facility] B 00:00:00 [facility] Hib-HbOC 1992 Completed [facility] 00:00:00 [facility] Poliovirus, Live, 1992 Completed [facility] Oral, Trivalent 00:00:00 [facility] 1992 Completed [facility] 00:00:00 [facility] Heamophilus Influenza 1992 Completed [facility] B 00:00:00 [facility] Hib-HbOC 1992 Completed [facility] 00:00:00 [facility] Poliovirus, Live, 1992 Completed [facility] Oral, Trivalent 00:00:00 [facility] 1992 Completed [facility] 00:00:00 [facility] Heamophilus Influenza 1992 Completed [facility] B 00:00:00 [facility] Hib-HbOC 1992 Completed [facility] 00:00:00 [facility] Poliovirus, Live, 1992 Completed [facility] Oral, Trivalent 00:00:00 [facility] DT 1992 Completed [facility] 00:00:00 [facility] Heamophilus Influenza 1992 Completed [facility] B 00:00:00 [facility] Hib-HbOC 1992 Completed [facility] 00:00:00 [facility] Poliovirus, Live, 1992 Completed [facility] Oral, Trivalent 00:00:00 [facility] DT 1992 Completed [facility] 00:00:00 [facility] Heamophilus Influenza 1992 Completed [facility] B 00:00:00 [facility] Hib-HbOC 1992 Completed [facility] 00:00:00 [facility] Poliovirus, Live, 1992 Completed [facility] of Oral, Trivalent 00:00:00 [facility] 1992 Completed [facility] 00:00:00 [facility] Heamophilus Influenza 1992 Completed [facility] B 00:00:00 [facility] Hib-HbOC 1992 Completed [facility] 00:00:00 [facility] Poliovirus, Live, 1992 Completed [facility] Oral, Trivalent 00:00:00 [facility] 1992 Completed [facility] 00:00:00 [facility] Heamophilus Influenza 1992 Completed [facility] B 00:00:00 [facility] Hib-HbOC 1992 Completed [facility] 00:00:00 [facility] Poliovirus, Live, 1992 Completed [facility] Oral, Trivalent 00:00:00 [facility] DT 1992 Completed [facility] 00:00:00 [facility] Heamophilus Influenza 1992 Completed [facility] B 00:00:00 [facility] Hib-HbOC 1992 Completed [facility] 00:00:00 [facility] Poliovirus, Live, 1992 Completed [facility] Oral, Trivalent 00:00:00 [facility] 1992 Completed [facility] 00:00:00 [facility] Heamophilus Influenza 1992 Completed [facility] B 00:00:00 [facility] Hib-HbOC 1992 Completed University of 00:00:00 [facility] Poliovirus, Live, 1992 Completed Univers ity of Oral, Trivalent 00:00:00 [facility] 1992 Completed University of 00:00:00 [facility] Heamophilus Influenza 1992 Completed Uni versity of B 00:00:00 [facility] Hib-HbOC 1992 Completed University of 00:00:00 [facility] Poliovirus, Live, 1992 Completed Univers ity of Oral, Trivalent 00:00:00 [facility] DT 1992 Completed University of 00:00:00 [facility] Heamophilus Influenza 1992 Completed Uni versity of B 00:00:00 [facility] Hib-HbOC 1992 Completed [facility] of 00:00:00 [facility] Poliovirus, Live, 1992 Completed Univers ity of Oral, Trivalent 00:00:00 [facility] 1992 Completed [facility] of 00:00:00 [facility] Heamophilus Influenza 1992 Completed Uni versity of B 00:00:00 [facility] Hib-HbOC 1992 Completed University of 00:00:00 [facility] Poliovirus, Live, 1992 Completed Univers ity of Oral, Trivalent 00:00:00 [facility] DTP 1992 Completed University of 00:00:00 [facility] Heamophilus Influenza 1992 Completed Uni versity of B 00:00:00 [facility] Hib-HbOC 1992 Completed [facility] of 00:00:00 [facility] Poliovirus, Live, 1992 Completed Univers ity of Oral, Trivalent 00:00:00 [facility] DT 1992 Completed [facility] of 00:00:00 [facility] Heamophilus Influenza 1992 Completed Uni versity of B 00:00:00 [facility] Hib-HbOC 1992 Completed [facility] of 00:00:00 [facility] Poliovirus, Live, 1992 Completed Univers ity of Oral, Trivalent 00:00:00 [facility] DTP 1992 Completed [facility] of 00:00:00 [facility] Heamophilus Influenza 1992 Completed Uni versity of B 00:00:00 [facility] Hib-HbOC 1992 Completed [facility] of 00:00:00 [facility] Poliovirus, Live, 1992 Completed Univers ity of Oral, Trivalent 00:00:00 [facility] DTP 1992 Completed [facility] 00:00:00 [facility] Heamophilus Influenza 1992 Completed Uni versity of B 00:00:00 [facility] Hib-HbOC 1992 Completed [facility] of 00:00:00 [facility] Poliovirus, Live, 1992 Completed Univers ity of Oral, Trivalent 00:00:00 [facility] DTP 1992 Completed University of 00:00:00 [facility] Heamophilus Influenza 1992 Completed Uni versity of B 00:00:00 [facility] Hib-HbOC 1992 Completed [facility] of 00:00:00 [facility] Poliovirus, Live, 1992 Completed Univers ity of Oral, Trivalent 00:00:00 [facility] DTP 1992 Completed [facility] of 00:00:00 [facility] Heamophilus Influenza 1992 Completed Uni versity of B 00:00:00 [facility] Hib-HbOC 1992 Completed [facility] of 00:00:00 [facility] Poliovirus, Live, 1992 Completed Univers ity of Oral, Trivalent 00:00:00 [facility] DTP 1992 Completed [facility] of 00:00:00 [facility] Heamophilus Influenza 1992 Completed Uni versity of B 00:00:00 [facility] Hib-HbOC 1992 Completed [facility] of 00:00:00 [facility] Poliovirus, Live, 1992 Completed Univers ity of Oral, Trivalent 00:00:00 [facility] DTP 1992 Completed [facility] of 00:00:00 [facility] Heamophilus Influenza 1992 Completed Uni versity of B 00:00:00 [facility] Hib-HbOC 1992 Completed [facility] of 00:00:00 [facility] Poliovirus, Live, 1992 Completed Univers ity of Oral, Trivalent 00:00:00 [facility] 1992 Completed [facility] of 00:00:00 [facility] Heamophilus Influenza 1992 Completed Uni versity of B 00:00:00 [facility] Hib-HbOC 1992 Completed [facility] of 00:00:00 [facility] Poliovirus, Live, 1992 Completed Univers ity of Oral, Trivalent 00:00:00 [facility] 1992 Completed [facility] of 00:00:00 [facility] Heamophilus Influenza 1992 Completed Uni versity of B 00:00:00 [facility] Hib-HbOC 1992 Completed [facility] of 00:00:00 [facility] Poliovirus, Live, 1992 Completed Univers ity of Oral, Trivalent 00:00:00 [facility] 1992 Completed [facility] of 00:00:00 [facility] Heamophilus Influenza 1992 Completed Uni versity of B 00:00:00 [facility] Hib-HbOC 1992 Completed [facility] of 00:00:00 [facility] Poliovirus, Live, 1992 Completed Univers ity of Oral, Trivalent 00:00:00 [facility] 1992 Completed [facility] of 00:00:00 [facility] Heamophilus Influenza 1992 Completed Uni versity of B 00:00:00 [facility] Hib-HbOC 1992 Completed [facility] of 00:00:00 [facility] Poliovirus, Live, 1992 Completed Univers ity of Oral, Trivalent 00:00:00 [facility] DT 1992 Completed [facility] of 00:00:00 [facility] Heamophilus Influenza 1992 Completed Uni versity of B 00:00:00 [facility] Hib-HbOC 1992 Completed [facility] of 00:00:00 [facility] Poliovirus, Live, 1992 Completed Univers ity of Oral, Trivalent 00:00:00 [facility] DTP 1992 Completed [facility] of 00:00:00 [facility] Heamophilus Influenza 1992 Completed Uni versity of B 00:00:00 [facility] Hib-HbOC 1992 Completed [facility] of 00:00:00 [facility] Poliovirus, Live, 1992 Completed Univers ity of Oral, Trivalent 00:00:00 [facility] DTP 1992 Completed [facility] of 00:00:00 [facility] Heamophilus Influenza 1992 Completed Uni versity of B 00:00:00 [facility] Hib-HbOC 1992 Completed [facility] of 00:00:00 [facility] Poliovirus, Live, 1992 Completed [facility] Oral, [facility]00 [facility] 00:00:00 [facility] Heamophilus Influenza 1992 Completed Uni versity of B 00:00:00 [facility] Hib-HbOC 1992 Completed [facility] of 00:00:00 [facility] Poliovirus, Live, 1992 Completed Univers ity of Oral, Trivalent 00:00:00 [facility] Vital Signs Vital Name Observation Time Observation Value Comments Source Systolic blood 2023-03-02 133 mm[Hg] University of pressure 17:25:00 [facility] Diastolic blood 2023-03-02 79 mm[Hg] [place] o f pressure 17:25:00 [facility] Heart rate 2023-03-02 86 /min [place] of :25:00 [facility] Body temperature 2023-03-02 36.67 Alisha [place] of 17:25:00 [facility] Respiratory rate 2023-03-02 16 /min [place] of 17:25:00 [facility] Body height 2023-03-02 160 cm [place] of 17:25:00 [facility] Body weight 2023-03-02 69.627 kg [place] of 17:25:00 [facility] BMI 2023-03-02 27.19 kg/m2 [place] of 17:25:00 [facility] Oxygen saturation 2023-03-02 97 /min [facility] in Arterial blood 17:25:00 [facility] by Pulse oximetry Branch Systolic blood 2023-01-21 156 mm[Hg] University of pressure 23:13:33 [facility] Diastolic blood 2023-01-21 100 mm[Hg] University o f pressure 23:13:33 [facility] Heart rate 2023-01-21 88 /min University of 23:13:33 [facility] Respiratory rate 2023-01-21 20 /min University of 23:13:33 [facility] Oxygen saturation 2023-01-21 100 /min University of in Arterial blood 23:13:33 [facility] by Pulse oximetry Branch Body height 2023-01-21 160 cm University of 18:44:00 [facility] Body weight 2023-01-21 69.854 kg University of 18:44:00 [facility] BMI 2023-01-21 27.28 kg/m2 University of 18:44:00 [facility] Body temperature 2023-01-21 37.11 Alisha University of 18:43:00 [facility] Systolic blood 2023-01-15 121 mm[Hg] University of pressure 18:01:00 [facility] Diastolic blood 2023-01-15 81 mm[Hg] University o f pressure 18:01:00 [facility] Heart rate 2023-01-15 83 /min University of 18:01:00 [facility] Respiratory rate 2023-01-15 16 /min University of 18:01:00 [facility] Oxygen saturation 2023-01-15 97 /min University of in Arterial blood 18:01:00 [facility] by Pulse oximetry Branch Body temperature 2023-01-15 36.89 Alisha University of 14:55:07 [facility] Body weight 2023-01-15 68.04 kg University of 13:47:00 [facility] BMI 2023-01-15 26.57 kg/m2 University of 13:47:00 [facility] Systolic blood 2023-01-15 131 mm[Hg] University of pressure 10:13:00 [facility] Diastolic blood 2023-01-15 83 mm[Hg] University o f pressure 10:13:00 [facility] Heart rate 2023-01-15 104 /min University of 10:13:00 [facility] Body temperature 2023-01-15 36.94 Alisha University [facility] 10:13:00 [facility] Respiratory rate 2023-01-15 21 /min University of 10:13:00 [facility] Body height 2023-01-15 160 cm University of 10:13:00 [facility] Body weight 2023-01-15 68.04 kg University of 10:13:00 [facility] BMI 2023-01-15 26.57 kg/m2 University of 10:13:00 [facility] Oxygen saturation 2023-01-15 100 /min University of in Arterial blood 10:13:00 [facility] by Pulse oximetry Branch Systolic blood 2022-12-31 128 mm[Hg] University of pressure 05:09:00 [facility] Diastolic blood 2022-12-31 79 mm[Hg] University o f pressure 05:09:00 [facility] Heart rate 2022-12-31 71 /min University of 05:09:00 [facility] Body temperature 2022-12-31 36.78 Alisha University of 05:09:00 [facility] Respiratory rate 2022-12-31 16 /min University of 05:09:00 [facility] Body height 2022-12-31 160 cm University of 05:09:00 [facility] Body weight 2022-12-31 67.586 kg University of 05:09:00 [facility] BMI 2022-12-31 26.39 kg/m2 University of 05:09:00 [facility] Oxygen saturation 2022-12-31 100 /min University of in Arterial blood 05:09:00 [facility] by Pulse oximetry Branch Systolic blood 2022-12-22 132 mm[Hg] University of pressure 13:18:00 [facility] Diastolic blood 2022-12-22 92 mm[Hg] University o f pressure 13:18:00 [facility] Heart rate 2022-12-22 78 /min University of 13:18:00 [facility] Respiratory rate 2022-12-22 18 /min University of 13:18:00 [facility] Body height 2022-12-22 160 cm University of 13:18:00 [facility] Body weight 2022-12-22 69.4 kg University of 13:18:00 [facility] BMI 2022-12-22 27.10 kg/m2 University of 13:18:00 [facility] Systolic blood 2022-12-19 102 mm[Hg] University of pressure 10:00:00 [facility] Diastolic blood 2022-12-19 60 mm[Hg] University o f pressure 10:00:00 [facility] Heart rate 2022-12-19 85 /min University of 10:00:00 [facility] Respiratory rate 2022-12-19 13 /min University of 10:00:00 [facility] Oxygen saturation 2022-12-19 96 /min University of in Arterial blood 10:00:00 [facility] by Pulse oximetry Branch Body temperature 2022-12-19 36.28 Alisha University of 07:30:00 [facility] Body height 2022-12-19 160 cm University of 07:30:00 [facility] Body weight 2022-12-19 67.132 kg University of 07:30: [facility] BMI 2022-12-19 26.22 kg/m2 University of 07:30:00 [facility] Systolic blood 2022-12-15 125 mm[Hg] University of pressure 15:48:00 [facility] Diastolic blood 2022-12-15 77 mm[Hg] University o f pressure 15:48:00 [facility] Heart rate 2022-12-15 75 /min University of 15:48:00 [facility] Body height 2022-12-15 160 cm University of 15:48:00 [facility] Body weight 2022-12-15 68.448 kg University of 15:48:00 [facility] BMI 2022-12-15 26.73 kg/m2 University of 15:48:00 [facility] Oxygen saturation 2022-12-15 98 /min University of in Arterial blood 15:48:00 [facility] by Pulse oximetry Branch Systolic blood 2022-12-14 132 mm[Hg] University of pressure 08:04: [facility] Diastolic blood 2022-12-14 87 mm[Hg] University o f pressure 08:04:00 [facility] Heart rate 2022-12-14 83 /min University of 08:04:00 [facility] Body temperature 2022-12-14 36.67 Alisha University of 08:04:00 [facility] Respiratory rate 2022-12-14 20 /min University of 08:04:00 [facility] Body height 2022-12-14 160 cm University of 08:04: [facility] Body weight 2022-12-14 67.132 kg University of 08:04:00 [facility] BMI 2022-12-14 26.22 kg/m2 University of 08:04:00 [facility] Oxygen saturation 2022-12-14 97 /min [facility] of in Arterial blood 08:04:00 [place] [facility] P[facility]xim[facility] Systolic blood 2022-11-03 143 mm[Hg] University of pressure 17:45:00 [facility] Diastolic blood 2022-11-03 89 mm[Hg] University o f pressure 17:45:00 [facility] Heart rate 2022-11-03 89 /min University of 17:45:00 [facility] Respiratory rate 2022-11-03 16 /min University of 17:45:00 [facility] Oxygen saturation 2022-11-03 99 /min University of in Arterial blood 17:45:00 [facility] by Pulse oximetry Branch Body temperature 2022-11-03 36.61 Alisha University of 14:13:00 [facility] Body height 2022-11-03 160 cm University of 14:13:00 [facility] Body weight 2022-11-03 68.04 kg University of 14:13:00 [facility] BMI 2022-11-03 26.57 kg/m2 University of 14:13:00 [facility] Systolic blood 2022-10-28 115 mm[Hg] University of pressure 21:02:00 [facility] Diastolic blood 2022-10-28 69 mm[Hg] University o f pressure 21:02:00 [facility] Heart rate 2022-10-28 93 /min University of 21:02:00 [facility] Body temperature 2022-10-28 36.89 Alisha University of 21:0200 [facility] Body height 2022-10-28 160 cm University of 21:02:00 [facility] Body weight 2022-10-28 70.308 kg University of 21:02:00 [facility] BMI 2022-10-28 27.46 kg/m2 University of 21:02:00 [facility] Oxygen saturation 2022-10-28 100 /min [facility] of in Arterial blood 21:02:00 [facility] by Pulse oximetry Branch Systolic blood 2022-10-13 133 mm[Hg] University of pressure 07:58:00 [facility] Diastolic blood 2022-10-13 72 mm[Hg] University o f pressure 07:58:00 [facility] Heart rate 2022-10-13 109 /min University of 07:58:00 [facility] Body temperature 2022-10-13 36.78 Alisha University of 07:58:00 [facility] Respiratory rate 2022-10-13 16 /min University of 07:58:00 [facility] Body weight 2022-10-13 67.132 kg University of 07:58:00 [facility] BMI 2022-10-13 26.22 kg/m2 University of 07:58:00 [facility] Oxygen saturation 2022-10-13 99 /min [facility] of in Arterial blood 07:58:00 [facility] by Pulse oximetry Branch Systolic blood 2022-10-10 120 mm[Hg] [facility] of pressure 00:44:00 [facility] Diastolic blood 2022-10-10 82 mm[Hg] University o f pressure 00:44:00 [facility] Heart rate 2022-10-10 110 /min University of 00:44:00 [facility] Body temperature 2022-10-10 36.33 Alisha University of 00:44:00 [facility] Respiratory rate 2022-10-10 18 /min University of 00:44:00 [facility] Body height 2022-10-10 160 cm University of 00:44:00 [facility] Body weight 2022-10-10 67.132 kg University of 00:44:00 [facility] BMI 2022-10-10 26.22 kg/m2 University of 00:44:00 [facility] Oxygen saturation 2022-10-10 99 /min [facility] of in Arterial blood 00:44:00 [facility] by Pulse oximetry Branch Systolic blood 2022-09-10 165 mm[Hg] [facility] of pressure 00:13:00 [facility] Diastolic blood 2022-09-10 99 mm[Hg] University o f pressure 00:13:00 [facility] Heart rate 2022-09-10 125 /min University of 00:13:00 [facility] Body temperature 2022-09-10 36.61 Alisha University of 00:13:00 [facility] Respiratory rate 2022-09-10 20 /min University of 00:13:00 [facility] Body weight 2022-09-10 65.772 kg University of 00:13:00 [facility] BMI 2022-09-10 25.69 kg/m2 University of 00:13:00 [facility] Oxygen saturation 2022-09-10 99 /min [facility] of in Arterial blood 00:13:00 [facility] by Pulse oximetry Branch Systolic blood 2022-08-18 134 mm[Hg] [facility] of pressure 22:36:00 [facility] Diastolic blood 2022-08-18 86 mm[Hg] University o f pressure 22:36:00 [facility] Heart rate 2022-08-18 100 /min University 22:36:00 [facility] Body temperature 2022-08-18 37.11 Alisha University of 22:36:00 [facility] Respiratory rate 2022-08-18 20 /min University 22:36:00 [facility] Body height 2022-08-18 160 cm University 22:36:00 [facility] Body weight 2022-08-18 67.132 kg University 22:36:00 [facility] BMI 2022-08-18 26.22 kg/m2 University 22:36:00 [facility] Oxygen saturation 2022-08-18 100 /min [facility] in Arterial blood 22:36:00 [facility] by Pulse oximetry Branch Systolic blood 2022-01-20 123 mm[Hg] [facility] pressure 18:11:00 Hospital Diastolic blood 2022-01-20 85 mm[Hg] [facility] pressure 18:11:00 Hospital Heart rate 2022-01-20 88 /min [facility] 18:11:00 Hospital Body temperature 2022-01-20 36.28 Alisha [facility] 18:11:00 Hospital Respiratory rate 2022-01-20 20 /min [facility] 18:11:00 Hospital Body height 2022-01-20 160 cm [facility] 18:11:00 Hospital Body weight 2022-01-20 66.225 kg [facility] 18:11:00 Hospital BMI 2022-01-20 25.86 kg/m2 [facility] 18:11:00 Hospital Oxygen saturation 2022-01-20 99 /min [facility] in Arterial blood 18:11:00 [facility] by Pulse [...] ABDOMEN PELVIS W 2023-01-21 21:07:22 Evangelina Abad [facility] POCT TEST 2023-01-21 19:34:00 Gutierrez [facility] LIPASE 2023-01-21 19:32:00 Gutierrez Moncada [facility] TROPONIN I 2023-01-21 19:32:00 Evangelina Abad [facility] COMP. METABOLIC PANEL 2023-01-21 19:32:00 Gutierrez Moncada [facility] ([id number]) [facility] CBC WITH DIFF 2023-01-21 19:32:00 Gutierrez Moncada [facility] URINALYSIS 2023-01-21 19:32:00 Gutierrez Moncada [facility] CONSENT/REFUSAL FOR 2023-01-21 18:36:13 [facility] Name Medical Branch LIPASE 2023-01-15 14:47:00 Luiza Lal [facility] COMP. METABOLIC PANEL 2023-01-15 14:47:00 Luiza Lal [facility] ([id number]) [facility] CBC WITH DIFF 2023-01-15 14:47:00 Luiza Lal [facility] CONSENT/REFUSAL FOR 2023-01-15 13:41:26 Doctor Unassigned, [facility] Name [facility] Branch CONSENT/REFUSAL FOR 2023-01-15 10:06:16 Doctor Unassigned, No [facility] [place] [facility]REAT[facility] Name Medical Branch EXTERNAL PROVIDER 2023-01-07 05:01:00 Doctor Unassigned, No [facility] [place] RECORDS Name Medical Branch EXTERNAL PROVIDER 2023-01-04 05:01:00 Doctor Unassigned, No [facility] [place] RECORDS Name Medical Branch CONSENT/REFUSAL FOR 2022-12-31 05:04:15 Doctor Unassigned, No [facility] [place] DIAGNOSIS AND TREATMENT Name [facility] CT ANGIOGRAPHY 2022-12-30 17:15:00 Amrit Ma [facility] CORONARIES WITHOUT Medical Bran h CARDIAC CALCIUM SCORING HB CREATININE 2022-12-30 16:24:00 Amrit Ma [facility] SERUM/BLOOD FOR IMAGING Medical Branch CONSENT/REFUSAL FOR 2022-12-30 15:17:01 Doctor Unassigned, No [facility] [place] DIAGNOSIS AND TREATMENT Name Medical Branch EXTERNAL PROVIDER 2022-12-29 05:01:00 Doctor Unassigned, No [facility] [place] RECORDS Name Medical Branch AUTHORIZATION TO RELEASE 2022-12-21 05:01:00 Doctor Unassigned, No [facility] PHI TO [facility] Name Medical Branch CT ANGIOGRAM CHEST 2022-12-19 09:28:16 Iza Medina [facility] Medical Branch TROPONIN I 2022-12-19 08:40:[address] [facility] D-DIMER 2022-12-19 08:40:[address] [facility] CONSENT/REFUSAL FOR 2022-12-19 07:30:10 Doctor Unassigned, No [facility] [place] DIAGNOSIS AND TREATMENT Name Medical Branch D-DIMER 2022-12-14 10:47:[address] [facility] TROPONIN I 2022-12-14 10:16:[address] [facility] LIPASE 2022-12-14 08:31:[address] [facility] TROPONIN I 2022-12-14 08:31:[address] [facility] COMP. METABOLIC PANEL 2022-12-14 08:31:00 Iza Medina [facility] ([id number]) [facility] CBC WITH DIFF 2022-12-14 08:31:[address] [facility] THYROID STIMULATING 2022-12-14 08:31:00 Amrit Ma [facility] HORMONE [facility] NOTICE OF PRIVACY 2022-12-14 07:50:02 Doctor Unassigned, No [facility] PRACTICES Name [facility] CONSENT/REFUSAL FOR 2022-12-14 07:49:31 Doctor Unassigned, No [facility] [place] DIAGNOSIS AND TREATMENT [facility] URINALYSIS 2022-11-03 15:27:00 Claudia Dotson [facility] URINE DRUG (IMMUNOASSAY) 2022-11-03 15:27:00 Claudia Dotson [facility] DRUG Medical [facility] SCREEN W/O REFLEX TEST, SERUM 2022-11-03 14:38:00 Claudia Dotson [facility] COMP. METABOLIC PANEL 2022-11-03 14:38:00 Claudia Dotson [facility] ([id number]) [facility] CBC WITH DIFF 2022-11-03 14:38:00 Claudia Dotson [facility] D-DIMER 2022-11-03 14:38:00 Claudia Dotson [facility] CONSENT/REFUSAL FOR 2022-11-03 14:04:36 Doctor Unassigned, No [facility] [place] DIAGNOSIS AND TREATMENT Name [facility] CONSENT/REFUSAL FOR 2022-10-28 20:34:23 Doctor Unassigned, No [facility] [place] DIAGNOSIS AND TREATMENT Name [facility] CONSENT/REFUSAL FOR 2022-10-13 07:49:25 Doctor Unassigned, No [facility] [place] DIAGNOSIS AND TREATMENT [facility] CONSENT/REFUSAL FOR 2022-10-10 00:16:57 Doctor Unassigned, No [facility] [place] DIAGNOSIS AND TREATMENT Name [facility] MRI LUMBAR SPINE WO 2022-10-07 00:35:00 [place], [facility] CONTRAST MRI CERVICAL SPINE WO 2022-10-07 00:22:00 [facility] CONTRAST CONSENT/REFUSAL FOR 2022-09-10 00:07:30 Doctor Unassigned, No [facility] [place] [facility] Medical [facility] CONSENT/REFUSAL FOR 2022-08-18 22:20:24 Doctor Unassigned, No [facility] [place] [facility] Name [facility] Branch CT SPINE EXTERNAL STUDY 2021-11-28 20:02:[address] [facility] [address] SPINE EXTERNAL STUDY 2021-11-28 19:57:[address] [facility] [address] SPINE EXTERNAL STUDY 2021-11-28 19:52:18 [facility] REFERRAL- 2021-11-21 05:01:00 Doctor Unassigned, No [facility] [place] REQUEST/RESPONSE Name [facility] Branch MRI SPINE EXTERNAL STUDY 2021-10-09 18:17:21 [facility] [QL] CBC (INCLUDES 2020-02-16 00:00:00 UT [...] [place] Physician s Transvaginal and Pelvic Doppler 00993 History of Dental [place] Physicians surgery History of [place] Physician s section low transverse Plan of Care Planned Activity Planned Date Details Comments Source Future Scheduled 2023-02-19 Pneumococcal Vaccine: [facility] Test 07:49:13 Pediatrics (0 to 5 Years) and At-Risk Patients (6 to 64 Years) (1 - PCV) [code = Pneumococcal Vaccine: Pediatrics (0 to 5 Years) and At-Risk Patients (6 to 64 Years) (1 - PCV)] Future Scheduled 2023-02-[address] [facility] Test 07:49:13 (procedure) [code = 741727172] Future Scheduled 2023-02-19 [facility] Test 07:49:13 malignant neoplasm of cervix (procedure) [code = 343199221] Future Scheduled 2023-02-19 COVID-19 VACCINE (3 - [facility] Test 07:49:13 Pfizer series) [code = COVID-19 VACCINE (3 - Pfizer series)] Future Scheduled 2023-02-19 INFLUENZA VACCINE [facility] Test 07:49:13 [code = INFLUENZA VACCINE] Future Scheduled 2023-02-19 Pneumococcal Vaccine: [facility] Test 07:49:13 Pediatrics (0 to 5 Years) and At-Risk Patients (6 to 64 Years) (1 - PCV) [code = Pneumococcal Vaccine: Pediatrics (0 to 5 Years) and At-Risk Patients (6 to 64 Years) (1 - PCV)] Future Scheduled 2023-02-[address] [facility] Test 07:49:13 (procedure) [code = 028205338] Future Scheduled 2023-02-19 [facility] Test 07:49:13 malignant neoplasm of cervix (procedure) [code = 656731810] Future Scheduled 2023-02-19 COVID-19 VACCINE (3 - [facility] Test 07:49:13 Pfizer series) [code = COVID-19 VACCINE (3 - Pfizer series)] Future Scheduled 2023-02-19 [facility]FLUENZA VACCINE [facility] Test 07:49:13 [code = INFLUENZA VACCINE] Future Scheduled 2023-02-19 [facility] Test 07:49:13 Pediatrics (0 to 5 Years) and At-Risk Patients (6 to 64 Years) (1 - PCV) [code = Pneumococcal Vaccine: Pediatrics (0 to 5 Years) and At-Risk Patients (6 to 64 Years) (1 - PCV)] Future Scheduled 2023-02-[address] [facility] Test 07:49:13 (procedure) [code = 106987396] Future Scheduled 2023-02-19 [facility] Test 07:49:13 malignant neoplasm of cervix (procedure) [code = 285973494] Future Scheduled 2023-02-19 COVID-19 VACCINE (3 - [facility] Test 07:49:13 Pfizer series) [code = COVID-19 VACCINE (3 - Pfizer series)] Future Scheduled 2023-02-19 INFLUENZA VACCINE [facility] Test 07:49:13 [code = INFLUENZA VACCINE] Future Scheduled 2022-12-30 Pneumococcal Vaccine: [facility] Test 10:15:19 Pediatrics (0 to 5 Years) and At-Risk Patients (6 to 64 Years) (1 - PCV) [code = Pneumococcal Vaccine: Pediatrics (0 to 5 Years) and At-Risk Patients (6 to 64 Years) (1 - PCV)] Future Scheduled 2022-12-[address] [facility] Test 10:15:19 (procedure) [code = 627725511] Future Scheduled 2022-12-30 [facility] Test 10:15:19 malignant neoplasm of cervix (procedure) [code = 689190709] Future Scheduled 2022-12-30 COVID-19 VACCINE (3 - [facility] Test 10:15:19 Booster for Pfizer series) [code = COVID-19 VACCINE (3 - Booster for Pfizer series)] Future Scheduled 2022-12-30 [facility]ZA [facility]ACCINE [facility] 10:15:19 [code = INFLUENZA VACCINE] Future Scheduled 2022-12-30 Pneumococcal Vaccine: [facility] Test 10:15:19 Pediatrics (0 to 5 Years) and At-Risk Patients (6 to 64 Years) (1 - PCV) [code = Pneumococcal Vaccine: Pediatrics (0 to 5 Years) and At-Risk Patients (6 to 64 Years) (1 - PCV)] Future Scheduled 2022-12-30 Hepatitis C screening [facility] Test 10:15:19 (procedure) [code = 642959887] Future Scheduled 2022-12-30 [facility] Test 10:15:19 malignant neoplasm of cervix (procedure) [code = 327296295] Future Scheduled 2022-12-30 COVID-19 VACCINE (3 - [facility] Test 10:15:19 Booster for Pfizer series) [code = COVID-19 VACCINE (3 - Booster for Pfizer series)] Future Scheduled 2022-12-30 [facility]ZA [facility]ACCINE [facility] 10:15:19 [code = INFLUENZA VACCINE] Future Scheduled 2022-12-30 Pneumococcal Vaccine: [facility] Test 10:15:19 Pediatrics (0 to 5 Years) and At-Risk Patients (6 to 64 Years) (1 - PCV) [code = Pneumococcal Vaccine: Pediatrics (0 to 5 Years) and At-Risk Patients (6 to 64 Years) (1 - PCV)] Future Scheduled 2022-12-30 Hepatitis C screening [facility] Test 10:15:19 (procedure) [code = 066258269] Future Scheduled 2022-12-30 [facility] Test 10:15:19 malignant neoplasm of cervix (procedure) [code = 759683179] Future Scheduled 2022-12-30 COVID-19 VACCINE (3 - [facility] Test 10:15:19 Booster for Pfizer series) [code = COVID-19 VACCINE (3 - Booster for Pfizer series)] Future Scheduled 2022-12-30 INFLUENZA VACCINE Method [facility] Test 10:15:19 [code = INFLUENZA VACCINE] Future Scheduled 2022-08-02 Pneumococcal Vaccine: [facility] Test 11:23:36 Pediatrics (0 to 5 Years) and At-Risk Patients (6 to 64 Years) (1 - PCV) [code = Pneumococcal Vaccine: Pediatrics (0 to 5 Years) and At-Risk Patients (6 to 64 Years) (1 - PCV)] Future Scheduled 2022-08-02 Hepatitis C screening [facility] Test 11:23:36 (procedure) [code = 911767000] Future Scheduled 2022-08-02 [facility] Test 11:23:36 malignant neoplasm of cervix (procedure) [code = 755485726] Future Scheduled 2022-08-02 COVID-19 VACCINE (3 - [facility] Test 11:23:36 Booster for Pfizer series) [code = COVID-19 VACCINE (3 - Booster for Pfizer series)] Future Scheduled 2022-08-02 INFLUENZA VACCINE Method [facility] Test 11:23:36 [code = INFLUENZA VACCINE] Future Scheduled 2022-07-24 Pneumococcal Vaccine: [facility] Test 21:51:51 Pediatrics (0 to 5 Years) and At-Risk Patients (6 to 64 Years) (1 - PCV) [code = Pneumococcal Vaccine: Pediatrics (0 to 5 Years) and At-Risk Patients (6 to 64 Years) (1 - PCV)] Future Scheduled 2022-07-[address] [facility] Test 21:51:51 (procedure) [code = 198987643] Future Scheduled 2022-07-24 Screening for [facility] Test 21:51:51 malignant neoplasm of cervix (procedure) [code = 485783762] Future Scheduled 2022-07-24 COVID-19 VACCINE (3 - [facility] Test 21:51:51 Booster for Pfizer series) [code = COVID-19 VACCINE (3 - Booster for Pfizer series)] Future Scheduled 2022-07-24 INFLUENZA VACCINE Method [facility] Test 21:51:51 [code = INFLUENZA VACCINE] Future Scheduled 2022-07-15 Pneumococcal Vaccine: [facility] Test 15:03:03 Pediatrics (0 to 5 Years) and At-Risk Patients (6 to 64 Years) (1 - PCV) [code = Pneumococcal Vaccine: Pediatrics (0 to 5 Years) and At-Risk Patients (6 to 64 Years) (1 - PCV)] Future Scheduled 2022-07-[address] [facility] Test 15:03:03 (procedure) [code = 482157460] Future Scheduled 2022-07-15 [facility] Test 15:03:03 malignant neoplasm of cervix (procedure) [code = 865358686] Future Scheduled 2022-07-15 COVID-19 VACCINE (3 - [facility] Test 15:03:03 Booster for Pfizer series) [code = COVID-19 VACCINE (3 - Booster for Pfizer series)] Future Scheduled 2022-07-15 INFLUENZA VACCINE Method [facility] Test 15:03:03 [code = INFLUENZA VACCINE] Future Scheduled 2022 Pneumococcal Vaccine: [facility] Test 09:54:03 Pediatrics (0 to 5 Years) and At-Risk Patients (6 to 64 Years) (1 - PCV) [code = Pneumococcal Vaccine: Pediatrics (0 to 5 Years) and At-Risk Patients (6 to 64 Years) (1 - PCV)] Future Scheduled [address] [facility] Test 09:54:03 (procedure) [code = 448226472] Future Scheduled 2022 [facility] Test 09:54:03 malignant neoplasm of cervix (procedure) [code = 777224621] Future Scheduled 2022 COVID-19 VACCINE (3 - [facility] Test 09:54:03 Booster for Pfizer series) [code = COVID-19 VACCINE (3 - Booster for Pfizer series)] Future Scheduled 2022 [facility]INE [facility] 09:54:03 [code = INFLUENZA VACCINE] Encounters Start End Encounter Admission Attending Care Care Encounter Source Date/Time Date/Time Type Type Clinicians Facility Department ID 2021-07-06 Emergency [facility] [id number] [facility]04 Emergency [facility] [id number] Univers [facility]-07-04 Emergency [facility] [id number] Univers 10:48:55 [facility] 2021-01-09 Inpatient HCACL MALISSA [id number] [facility] 10:52:00 [id number] [facility] 2020-12-[address] [facility] MALISSA [id number] [facility] 20:29:00 65 [facility] 2020-12-26 Inpatient CLAUDETTE Escobar, [facility] ENDO [id number] [facility] 10:00:00 Rik 01 [facility] 2020-12-22 Inpatient [facility] [id number] [facility] 23:08:15 49 [facility] 2020-08-[address] [facility] MALISSA [id number] [facility] 09:10:00 26 [facility] 2020-08-05 Inpatient [facility] MALISSA [id number] [facility] 20:55:00 [facility] 2020-02-20 Outpatient KRISTIN, [facility] [id number] [facility] 10:04:01 LISHA 2023-03-02 2023-03-02 Urgent Talha Alas [facility] 1.2.840.114 [id number] Univers 12:00:00 12:20:00 Care Unknown, [facility] HEALTH 350.1.13.10 ity of [place] 4.2.7.2.686 Zay as BLANCA?BLEA [phone] [address] OFFICE [facility] 2023-03-02 2023-03-02 Outpatient R BISHOP [facility] [id number] Univers 12:00:00 12:00:00 TALHA [facility] 2023-03-02 2023-03-02 [facility] 1.2.840.114 [id number] Univers 00:00:00 00:00:00 (Out) [facility] 350.1.13.10 it y of [place] 4.2.7.2.686 Zay as BLANCA?BLEA [id number] [address] OFFICE [facility] 2023-01-21 2023-01-21 Emergency X POLLO [facility] ERT [id number] Univers 13:46:00 18:49:00 [facility] 2023-01-21 2023-01-21 Emergency [facility] [id number] Univers 13:46:00 18:49:00 [facility] 350.1.13.10 it y [facility] 4.2.7.2.686 [place] [facility] [id number] [address] ([facility]) 2023-01-21 2023-01-21 Outpatient R KRISTY [facility] [id number] Univers 13:30:00 13:30:00 SMITHA [facility] 2023-01-15 2023-01-15 Emergency X HALI [facility] ERT [id number] Univers 08:50:00 13:10:00 LUIZA [facility] 2023-01-15 2023-01-15 Emergency [facility] [id number] Univers 08:50:00 13:10:00 Luiza S DES LACS 350.1.13.10 i ty of [place] 4.2.7.2.686 [facility] [id number] [address] 2023-01-15 2023-01-15 Outpatient R KENZIE BADILLO [facility] [id number] Univers 09:00:00 09:00:00 ity [facility] 2023-01-15 2023-01-15 Emergency X [facility] ERT [id number] Univers 05:24:00 06:28:00 DEJANETTELI y [facility] 2023-01-15 2023-01-15 Emergency Counts include 234 beds at the [facility] 1.2.067.822 [id number] Univers 05:24:00 06:28:00 Iza GARNERJUAREZ 350.1.13.10 ity [facility] 4.2.7.2.6 [facility] [id number] [address] 2023-01-12 2023-01-12 Outpatient Anton BAEZA [facility] [id number] Univers 10:30:00 10:30:00 ИВАН ity [facility] 2023-01-08 2023-01-08 Outpatient R FRANCESCA [facility] [id number] Univers 08:00:00 08:00:00 SENDIL ity [facility] 2023-01-07 2023-01-07 Orders Doctor SUDHA 1.2.840.114 [id number] Univers 00:00:00 00:00:00 Only Unassigned, ALEM 350.1.13.10 ity of [place] [facility] 4.2.7.2.686 Zay as [phone] [address] 2023-01-04 2023-01-04 Orders Doctor SUDHA 1.2.840.114 [id number] Univers 00:00:00 00:00:00 Only Unassigned, ALEM 350.1.13.10 ity of [place] [facility] 4.2.7.2.686 Zay as [id number] [address] 2023-01-04 2023-01-04 [facility] 1.2.308.804 [id number] Univers 00:00:00 00:00:00 Иван HEALTH 350.1.13.10 it y of [place] CANCER 4.2.7.2.686 [facility] - [phone] Med ical [facility] [address] 2023-01-01 2023-01-01 Telephone Amarilisalonaraisarj [facility] 1.2.840.11 [id number] Univers 00:00:00 00:00:00 Jorge GANDARA 350.1.13.10 it y of WOMEN'S 4.2.7.2.686 [facility] HEALTH [id number] [facility] [address] 2022-12-31 2022-12-31 Emergency X Jasmin SILVER [facility] ERT [id number] Univers 00:13:00 01:07:00 ity of [facility] 2022-12-31 2022-12-31 Emergency Jg [facility] 1.2.840.114 [id number] Univers 00:13:00 01:07:00 Filomena GUERRERO 350.1.13.10 i ty of [place] 4.2.7.2.686 [facility] [id number] [facility] 084 Branch 2022-12-31 2022-12-31 Telephone [facility] 1.2.882.224 [id number] Univers 00:00:00 00:00:00 Sendil Ismael GUERRERO 350.1.13.10 ity of [place] 4.2.7.2.686 [facility] PROFESSIO [id number] La dical [facility] [address] BUILDING 2022-12-30 2022-12-30 [facility] 1.2.840.114 [id number] Univers 10:38:24 23:59:00 Encounter Amrit GUERRERO 350.1.13.10 ity of [place] 4.2.7.2.686 [facility] WARTHEN [id number] [facility] [address] 2022-12-30 2022-12-30 [facility] [id number] Univers 10:38:24 23:59:00 SENDIL ity [facility] 2022-12-30 2022-12-30 Emergency X ELISA [facility] ERT [id number] Univers 10:21:00 10:33:00 AWILDA ity of [facility] 2022-12-30 2022-12-30 Emergency [facility] 1.2.840.114 10 [id number] Univers 10:21:00 10:33:00 Awilda Gary PATSYJUAREZ 350.1.13.10 ity of [place] 4.2.7.2.686 [facility] [id number] [facility] 0[address] 2022-12-30 2022-12-30 Telephone GEORGIE Chandra [place] 1.2.840.11 [id number] Univers 00:00:00 00:00:00 Jorge GANDARA 350.1.13.10 it y of WOMEN'S 4.2.7.2.686 [facility] [id number] [facility] 134 Branch 2022-12-29 2022-12-29 Outpatient R JORGE CHANDRA [facility] B [id number] Univers 13:30:00 13:30:00 [facility] 2022-12-29 2022-12-29 Orders Doctor SUDHA 1.2.840.114 [id number] Univers 00:00:00 00:00:00 Only Unassigned, ALEM 350.1.13.10 ity of [place] [facility] 4.2.7.2.686 [facility] [id number] [facility] 009 Branch 2022-12-29 2022-12-29 Telephone Felisha MEGORDON 1.2.129.580 [id number] Univers 00:00:00 00:00:00 Иван HEALTH 350.1.13.10 it y of [place] CANCER 4.2.7.2.686 [facility] - [phone] [facility] [address] 2022-12-28 2022-12-28 Telephone Felisha [facility] 1.2.324.758 [id number] Univers 00:00:00 00:00:00 Иван HEALTH 350.1.13.10 it y of [place]ER 4.2.7.2.686 [facility] - [phone] [facility] [address] 2022-12-25 2022-12-25 Patient Graciela MEGORDON 1.2.840.114 [id number] Univers 00:00:00 00:00:00 Secure Msg Linda HEALTH 350.1.13.10 ity of [place] 4.2.7.2.686 Zay as BLANCA?BLEA [id number] La denilson [place] [address] [facility] OFFICE BUILDING 2022-12-23 2022-12-[address] [facility] 1.2.840.11 4 [id number] Univers 00:00:00 00:00:00 Jorge GANDARA 350.1.13.10 it y of [place].2.686 [place] [facility] [id number] [address] 2022-12-23 2022-12-23 Patient Gurpreet [facility] 1.2.840.114 [id number] Univers 00:00:00 00:00:00 Secure Msg Norberto GUERRERO 350.1.13.10 ity of [facility] 4.2.7.2.686 [place] [phone] [facility] [address] 2022-12-22 2022-12-22 [facility] [employer] [facility], Ang - [facility] 1.2.840.1 14 [id number] Univers 09:30:00 09:45:00 Visit Jorge Chandra [facility] 350.1.13.1 0 ity of [place] 4.2.7.2.686 Zay as BLANCA?BLEA [id number] La denilson [place] [address] [facility] OFFICE [facility] 2022-12-22 2022-12-22 [facility] [place] [facility] 1.2.840.114 [id number] Univers 08:00:00 08:53:38 Visit Jorge GANDARA 350.1.13.10 it y of [place] 4.2.7.2.686 [place] [id number] [address] 2022-12-22 2022-12-22 Outpatient R JORGE CHANDRA [facility] B [id number] Univers 08:00:00 08:53:38 JORGE CHANDRA ity of [facility] 2022-12-21 2022-12-21 Orders Doctor HALEY 1.2.840.114 [id number] Univers 00:00:00 00:00:00 Only Unassigned, ALEM 350.1.13.10 ity of [place] [facility] 4.2.7.2.686 Zay [id number] [facility] 009 Branch 2022-12-19 2022-12-19 Emergency X [facility] ERT [id number] Univers 02:32:00 05:47:00 WAKILI ity of [facility] 2022-12-19 2022-12-19 Emergency Counts include 234 beds at the [facility] 1.2.190.248 [id number] Univers 02:32:00 05:47:00 Iza S ISH 350.1.13.10 ity of [place] 4.2.7.2.686 [facility] [id number] [facility] 0[address] 2022-12-18 2022-12-18 Outpatient R KENZIE BADILLO [facility] [id number] Univers 09:45:00 09:45:00 ity of [facility] 2022-12-17 2022-12-17 Telephone Aby [facility] 1.2.840.114 [id number] Univers 00:00:00 00:00:00 E HEALTH 350.1.13.10 it y of CANCER 4.2.7.2.686 [facility] [phone] Med ical [facility] 201 [address] 2022-12-15 2022-12-15 Outpatient R FRANCESCA [facility] [id number] Univers 11:00:00 11:30:30 SENDIL ity of [facility] 2022-12-15 2022-12-15 Office [facility] 1.2.840.114 [id number] Univers 11:00:00 11:30:30 Visit Amrit GUERRERO 350.1.13.10 ity of [place] 4.2.7.2.686 [facility] [id number] [place] [id number] [facility] 2022-12-15 2022-12-15 Telephone [facility] 1.2.928.854 [id number] Univers 00:00:00 00:00:00 Sendil Ismael GUERRERO 350.1.13.10 ity of [place] 4.2.7.2.686 [place] [facility] [id number] La dical NAL [address] [facility] 2022-12-14 2022-12-14 Emergency X JAGRUTI, [facility] ERT [id number] Univers 03:03:00 07:05:00 WAJANETTELI ity of [facility] 2022-12-14 2022-12-14 Emergency Yariri, [facility] 1.2.585.922 [id number] Univers 03:03:00 07:05:00 Iza GUERRERO 350.1.13.10 ity of [facility] 4.2.7.2.686 [place] [id number] [facility] [address] [place] 2022-11-03 2022-11-03 Emergency X KIKI, [facility] ERT [id number] Univers 08:15:00 12:05:00 CLAUDIA ity [facility] 2022-11-03 2022-11-03 Emergency [facility] 1.2.472.369 [id number] Univers 08:15:00 12:05:00 Claudia GUERRERO 350.1.13.10 i ty of [place] 4.2.7.2.686 [place] [id number] [facility] [address] [place] 2022-10-28 2022-10-28 Outpatient R GRACIELA [facility] [id number] Univers 15:00:00 15:28:11 LINDA calixto [facility] 2022-10-28 2022-10-28 Office Graciela [facility] 1.2.840.114 [id number] Univers 15:00:00 15:28:11 Visit [facility] 350.1.13.10 it y of [place] 4.2.7.2.686 Zay as BLANCA?BLEA [id number] La dical KNEY [address] [place] MEDICAL OFFICE BUILDING 2022-10-28 2022-10-28 Orders Doctor SUDHA 1.2.840.114 [id number] Univers 00:00:00 00:00:00 Only Unassigned, ALEM 350.1.13.10 ity of [place] [facility] 4.2.7.2.686 Zay as [id number] [facility] [address] 2022-10-28 2022-10-28 Abstract Graciela [facility] 1.2.840.114 [id number] Univers 00:00:00 00:00:00 Linda HEALTH 350.1.13.10 it y of [place] 4.2.7.2.686 Zay as BLANCA?BLEA [id number] [address] 2022-10-28 2022-10-28 Patient [facility] 1.2.840.114 [id number] Univers 00:00:00 00:00:00 Outreach [place] CISNEROS 350.1.13.10 i ty of [place] 4.2.7.2.686 Zay as BLANCA?BLEA [id number] [address] 2022-10-28 2022-10-28 Telephone [facility] 1.2.300.463 [id number] Univers 00:00:00 00:00:00 Phylicia GARNERBANNER 350.1.13.10 i ty of [place] 4.2.7.2.686 [place] [id number] [address] 2022-10-13 2022-10-13 Emergency [facility] ERT [id number] Univers 01:56:00 02:55:00 IZA calixto [facility] 2022-10-13 2022-10-13 Emergency Counts include 234 beds at the [facility] 1.2.049.537 [id number] Univers 01:56:00 02:55:00 Iza GUERRERO 350.1.13.10 ity of [place] 4.2.7.2.686 [facility] [id number] [address] 2022-10-09 2022-10-09 [facility] [id number] Univers 18:46:00 19:00:00 LUIZA itmisty [facility] 2022-10-09 2022-10-09 Emergency [facility] 1.2.534.759 [id number] Univers 18:46:00 19:00:00 Luiza S [facility] 350.1.13.10 i ty of [facility] 4.2.7.2.686 [facility] [id number] [facility] [address] 2022-10-09 2022-10-09 Orders Doctor SUDHA [id number] [address] 00:00:00 00:00:00 Only Unassigned, ALEM 350.1.13.10 ity of [place] 4.2.7.2.686 Zay [id number] [facility] [address] 2022-10-06 2022-10-06 [facility], 1.2.840.1 [id number] Methodi 17:35:51 23:59:00 Encounter Jorge Luis [id number] 997 s t 3.430.2.7 Hospit a .[id number] l .8 2022-10-06 2022-10-06 [facility], 1.2.840.1 [id number] Methodi 17:35:51 23:59:00 Encounter Jorge Luis 29217.1.1 997 s t 3.430.2.7 Hospit a .3.761461 l .8 2022-10-06 2022-10-06 [facility], 1.2.840.1 [id number] 013 [id number] Methodi 17:35:36 23:59:00 Encounter Jorge Luis 55126.1.1 999 s t 3.430.2.7 Hospit a .3.439912 l .8 2022-10-06 2022-10-06 [facility], 1.2.840.1 [id number] 039 [id number] Methodi 17:35:36 23:59:00 Encounter Jorge Luis 11007.1.1 999 s t 3.430.2.7 Hospit a .3.715211 l .8 2022-10-06 2022-10-06 Travel 1.2.840.1 1.2.097.988 0928 721724 Methodi 00:00:00 00:00:[address] 3.430.2.7 0.2.7.3.698 Ho spita .3.414834 084.8 l .8 2022-10-06 2022-10-06 Travel 1.2.840.1 1.2.589.444 1279 636359 Methodi 00:00:00 00:00:[address] 3.430.2.7 0.2.7.3.698 Ho spita .3.239661 084.8 l .8 2022-09-09 2022-09-09 Emergency X VIN, [facility] ERT [id number] 724 Univers 18:15:00 19:35:00 NATY calixto [facility] 2022-09-09 2022-09-09 [facility] 1.2.840.114 995 17862 Univers 18:15:00 19:35:00 Naty GUERRERO 350.1.13.10 i ty of [place] 4.2.7.2.686 [facility] [id number] [facility] 084 Branch 2022-08-18 2022-08-18 Emergency X [facility] ERT [id number] Univers 16:38:00 17:44:00 BEBO calixto [facility] 2022-08-18 2022-08-18 [facility] 1.2.544.231 1528 1453 Univers 16:38:00 17:44:00 Bebo GUERRERO 350.1.13.10 i ty of [place] 4.2.7.2.686 [facility] [id number] [facility] 084 Branch 2022-08-07 2022-08-08 Inpatient EL Pfost, [facility].01 [id number] [facility] 14:50:00 12:01:00 [facility]na [facility] 2022-08-03 2022-08-03 Emergency EM Ernesto, [place] [facility] [id number] [facility] 14:26:00 16:02:00 Roro 86 [facility] 2022-07-23 2022-07-23 [facility], 1.2.840.1 [id number] 109 [id number] Methodi 10:30:00 10:30:00 Encounter Jorge Luis 85084.1.1 209 s t 3.430.2.7 Hospit a .3.257258 l .8 2022-07-23 2022-07-23 Telephone Jemal, 1.2.840.1 [id number] 2099 494267 Methodi 00:00:00 00:00:[address] 3.430.2.7 Hospit a .3.404469 l .8 2022-07-23 2022-07-23 Telephone Jemal, 1.2.840.1 [id number] 2099013 Methodi 00:00:00 00:00:[address] 3.430.2.7 Hospit a .3.724206 l .8 2022-07-07 2022-07-07 Outpatient LONA DILL 140101 936 Lona 10:45:00 10:45:00 ELBERT alvarez 2022-07-06 2022-07-06 Travel 1.2.840.1 1.2.245.506 5091 188481 Methodi 00:00:00 00:00:[address] 3.430.2.7 0.2.7.3.698 Ho spita .3.353711 084.8 l .8 2022-07-06 2022-07-06 Travel 1.2.840.1 1.2.907.661 4765 458684 Methodi 00:00:00 00:00:[address] 3.430.2.7 0.2.7.3.698 Ho spita .3.559088 084.8 l .8 2022-06-15 2022-06-16 Office [place], 1.2.840.1 [id number] 2099006 Methodi 14:15:00 11:08:59 Visit Jorge Luis 25685.1.[address] 3.430.2.7 Hospit a .3.727572 l .8 2022-06-15 2022-06-16 Office Sathya, 1.2.840.1 [id number] 2100 012831 Methodi 14:15:00 11:08:59 Visit Jorge Luis 82697.1.[address] 3.430.2.7 Hospit a .3.343544 l .8 2022-06-15 2022-06-15 [facility], 1.2.840.1 [id number] 600 [id number] Methodi 14:15:15 23:59:00 Encounter Jorge Luis 14419.1.1 971 s t 3.430.2.7 Hospit a .3.024962 l .8 2022-06-15 2022-06-15 [facility], 1.2.840.1 [id number] 052 3991952 Methodi 14:15:15 23:59:00 Encounter Jorge Luis 42649.1.1 971 s t 3.430.2.7 Hospit a 3.666545 l .8 2022-06-15 2022-06-15 [facility], 1.2.840.1 [id number] 017 5333987 Methodi 14:15:13 23:59:00 Encounter Jorge Luis 63743.1.1 963 s t 3.430.2.7 Hospit a .3.132880 l .8 2022-06-15 2022-06-15 [facility], 1.2.840.1 [id number] 061 [id number] Methodi 14:15:13 23:59:00 Encounter Jorge Luis 00808.1.1 963 s t 3.430.2.7 Hospit a .3.429396 l .8 2022-06-15 2022-06-15 [facility], 1.2.840.1 [id number] 739 7541296 Methodi 14:13:36 14:14:00 Encounter Jorge Luis 51566.1.1 680 s t 3.430.2.7 Hospit a .3.612114 l .8 2022-06-15 2022-06-15 [facility], 1.2.840.1 [id number] 250 [id number] Methodi 14:13:36 14:14:00 Encounter Jorge Luis 14165.1.1 680 s t 3.430.2.7 Hospit a .3.172112 l .8 2022-06-15 2022-06-15 [facility], 1.2.840.1 [id number] 398 3393792 Methodi 14:12:01 14:12:01 Encounter Jorge Luis 30148.1.1 418 s t 3.430.2.7 Hospit a .3.406070 l .8 2022-06-15 2022-06-15 [facility], 1.2.840.1 [id number] 419 [id number] Methodi 14:12:01 14:12:01 Encounter Jorge Luis 57027.1.1 418 s t 3.430.2.7 Hospit a .3.392139 l .8 2022-06-15 2022-06-15 [facility], 1.2.840.1 [id number] 2099 575125 Methodi 00:00:00 00:00:00 Only Jorge Luis 57129.1.[address] 3.430.2.7 Hospit a .3.499436 l .8 2022-06-15 2022-06-15 Travel 1.2.840.1 1.2.210.582 5779 338597 Methodi 00:00:00 00:00:[address] 3.430.2.7 0.2.7.3.698 Ho spita .3.519011 084.8 l .8 2022-06-15 2022-06-15 [facility], 1.2.840.1 [id number] 2099 176853 Methodi 00:00:00 00:00:00 Only Jorge Luis 10723.1.[address] 3.430.2.7 Hospit a .3.434357 l .8 2022-06-15 2022-06-15 Travel 1.2.840.1 1.2.537.887 5886 162788 Methodi 00:00:00 00:00:[address] 3.430.2.7 0.2.7.3.698 Ho spita .3.352734 084.8 l .8 2022-06-11 2022-06-11 Travel 1.2.840.1 1.2.148.031 7994 061818 Methodi 00:00:00 00:00:[address] 3.430.2.7 0.2.7.3.698 Ho spita .3.478296 084.8 l .8 2022-06-11 2022-06-11 Travel 1.2.840.1 1.2.229.722 0171 804960 Methodi 00:00:00 00:00:[address] 3.430.2.7 0.2.7.3.698 Ho spita .3.557910 084.8 l .8 2022-02-17 2022-02-17 Refill Vivian 1.2.840.1 [id number] 2100 707869 Methodi 00:00:00 00:00:[address] Andrea 3.430.2.7 Hospit a .3.990986 l .8 2022-01-20 2022-01-20 Office Vivian 1.2.840.1 [id number] 2100 731625 Methodi 13:00:00 13:57:49 Visit Jessi 19334.1.[address] Andrea 3.430.2.7 Hospit a .3.815606 l .8 2022-01-20 2022-01-20 Telephone Allie MEGORDON 1.2.840.114 9 [id number] [facility] 00:00:00 00:00:00 Michi MULTISPEC 350.1.13.10 James 4.2.7.2.686 [facility] [id number] [facility] AND [address] [facility] 2022-01-20 2022-01-20 Travel 1.2.840.1 1.2.355.971 3965 270325 Methodi 00:00:00 00:00:[address] 3.430.2.7 0.2.7.3.698 Ho spita .3.354757 084.8 l .8 2022-01-19 2022-01-19 Telephone Vivian [facility] 1.2.840.114 93 [id number] Univers 00:00:00 00:00:00 Jessi MULTISPEC 350.1.13.10 ity of Andrea SÁNCHEZ 4.2.7.2.686 [facility] [phone] [facility] AND [place] [address] Branch [facility] 2021-11-21 2021-11-21 Orders Doctor SUDHA 1.2.840.114 [id number] 36 Univers 00:00:00 00:00:00 Only Unassigned, ALEM 350.1.13.10 ity of [place] [facility] 4.2.7.2.686 Zay [id number] [facility] 009 Branch 2021-11-17 2021-11-18 Emergency [facility] [id number] 11 Univers 19:45:00 00:44:00 [facility] 2021-11-17 2021-11-18 Emergency [facility] 1.2.492.462 0546 8574 Univers 19:45:00 00:44:00 Donta GUERRERO 350.1.13.10 i ty [facility] 4.2.7.2.686 [facility] [id number] [place] [address] Branch 2021-11-16 2021-11-16 Emergency [facility]RT [id number] 86 Univers 20:28:00 21:58:00 [facility] 2021-11-16 2021-11-16 Emergency Counts include 234 beds at the [facility] 1.2.790.492 0768 5340 Univers 20:28:00 21:58:00 Iza GUERRERO 350.1.13.10 ity [facility] 4.2.7.2.686 [facility] [phone] [place] 481924 Branch 2021-10-02 2021-10-02 Emergency EM [place] Piña [id number] [facility] 16:59:00 20:32:00 Hung [id number] Cl [facility] 2021-10-02 2021-10-02 Emergency EM EDDOC, HCACL HCACL [id number] [facility] 16:59:00 20:32:00 GENERIC 76 [facility] 2021-10-01 2021-10-01 Petr Borges, 1.2.840.1 [id number] 2100 [id number] Methodi 00:00:00 00:00:00 [place] [address]78.1.[address] Andrea 3.430.2.7 Hospit a .3.720605 l .8 2021-09-30 2021-09-30 Emergency [facility] [id number] 8325 Univers 13:31:00 16:34:00 AWILDA calixto [facility] 2021-09-30 2021-09-30 Emergency [facility] 1.2.840.114 90 [id number] Univers 13:31:00 16:34:00 Awilda GUERRERO 350.1.13.10 Elías 4.2.7.2.686 [facility] [id number] [place] [address] Branch 2021-08-14 2021-08-14 Refill Nenita, 1.2.840.1 [id number] 21 [id number] Methodi 00:00:00 00:00:[address] 3.430.2.7 Hospit a .3.935337 l .8 2021-08-12 2021-08-12 Refill Nenita, 1.2.840.1 [id number] 21 [id number] Methodi 00:00:00 00:00:[address] 3.430.2.7 Hospit a .3.404535 l .8 2021-07-23 2021-07-23 Emergency X [facility] ERT [id number] 08 Univers 16:14:00 17:06:00 ity [facility] 2021-07-23 2021-07-23 Emergency [facility] 1.2.521.301 6178 5383 Univers 16:14:00 17:06:00 ISH 350.1.13.10 i [facility] 4.2.7.2.686 [facility] [id number] [facility] 084 Branch 2021-07-23 2021-07-23 Emergency EM SALENA Coles AERS [id number] [facility] 13:58:00 14:24:00 Burak [id number] [facility] 2021-07-23 2021-07-23 Emergency EM [place] ColesCL [id number] [facility] 13:58:00 14:24:00 Burak 69 [facility] 2021-07-10 2021-07-10 Telemedici Vivian, 1.2.840.1 [id number] 2 [id number] Methodi 08:30:00 09:02:51 ne [place] 83603.1.[address] [facility] 3.430.2.7 Hospit a .3.938735 l .8 2021-07-09 2021-07-09 Travel 1.2.840.1 1.2.343.160 4677 918028 Methodi 00:00:00 00:00:[address] 3.430.2.7 0.2.7.3.698 Ho spita .3.482299 084.8 l .8 2021-06-13 2021-06-13 Outpatient [facility] [id number] 85873 [place] 00:00:00 00:00:[address] 2021-04-17 2021-04-17 Emergency E LOLITA [facility] 7515 16:40:00 19:42:00 [facility] 2021-03-30 2021-03-30 Emergency E SATURNINO [facility] 7514 [facility]BL 00:46:00 06:26:00 SABHA 2021-01-15 2021-01-15 Outpatient SALENA Escobar [facility] G81 6242-20 [facility] 08:00:00 08:00:00 Rik [id number] [facility] 2021-01-09 2021-01-09 Emergency E LOLITA WASSERMAN [facility] 7513 12:29:00 16:41:00 [facility] 2020-12-26 2020-12-26 Emergency [facility] 064 [id number] 09 [place] 00:00:00 00:00:[address] 2020-12-21 2020-12-22 Emergency Counts include 234 beds at the [facility] 1.2.278.569 5173 7932 [facility] 22:42:00 02:02:00 Iza Avila Ish 350.1.13.10 ity of [place] 4.2.7.2.686 [facility] [phone] [address] 2020-12-21 2020-12-22 Emergency Counts include 234 beds at the [facility] 1.2.857.727 1073 7932 22:42:00 02:02:00 Iza Guerrero 350.1.13.10 [place] 4.2.7.2.686 [place] [id number] [facility] 2020-12-21 2020-12-21 Orders Doctor HALEY 1.2.840.114 [id number] 30 Univers 00:00:00 00:00:00 Only Unassigned, ALEM 350.1.13.10 ity of [place] [facility] 4.2.7.2.686 [facility] [id number] [address] 2020-12-21 2020-12-21 Orders Doctor SUDHA 1.2.840.114 [id number] 30 00:00:00 00:00:00 Only Unassigned, ALEM 350.1.13.10 [place] [facility] 4.2.7.2.[facility] [id number] 009 2020-08-15 2020-08-19 Inpatient [facility] [id number] [facility] 14:57:00 06:49:15 [facility] 2020-08-15 2020-08-15 Emergency [facility] 1.2.581.109 2597 8387 Univers 03:26:00 06:17:00 Donta Guerrero 350.1.13.10 i ty of [place] 4.2.7.2.686 [facility] [id number] [address] 2020-08-15 2020-08-15 Emergency X [facility] ERT [id number] Univers 03:26:00 06:17:00 [facility] 2020-08-15 2020-08-15 Emergency Qiu, [facility] 1.2.340.813 5403 8387 03:26:00 06:17:00 Donta Guerrero 350.1.13.10 [place] 4.2.7.2.686 [place] [id number] [facility] 2020-04-13 2020-04-13 Emergency Elisa, [facility] 1.2.840.114 77 [id number] [facility] 19:38:00 23:40:00 Awilda Guerrero 350.1.13.10 ity of [place] 4.2.7.2.686 [facility] [id number] [address] 2020-04-13 2020-04-13 Emergency [facility] 1.2.840.114 77 [id number] 19:38:00 23:40:00 Awilda Guerrero 350.1.13.10 [place] 4.2.7.2.686 [place] [id number] [facility] 2020-04-13 2020-04-13 Orders Doctor HALEY 1.2.840.114 [id number] 77 Univers 00:00:00 00:00:00 Only Unassigned, ALEM 350.1.13.10 ity of [place] [facility] 4.2.7.2.686 Zay [id number] [address] 2020-04-13 2020-04-13 Orders Doctor HALEY 1.2.840.114 [id number] 77 00:00:00 00:00:00 Only Unassigned, ALEM 350.1.13.10 [place] [facility] 4.2.7.2.686 [id number] [facility] 2020-04-10 2020-04-10 Emergency Pope, [facility] 1.2.012.227 5999 5068 [facility] 15:39:00 19:05:00 Bebo Guerrero 350.1.13.10 i ty of [place] 4.2.7.2.686 [facility] [id number] [address] 2020-04-10 2020-04-10 Emergency Pope, [facility] 1.2.554.182 6923 5068 15:39:00 19:05:00 Bebo Guerrero 350.1.13.10 [place] 4.2.7.2.686 [place] [id number] 084 2020-04-10 2020-04-10 Orders Doctor SUDHA 1.2.840.114 [id number] 10 Univers 00:00:00 00:00:00 Only Unassigned, ALEM 350.1.13.10 ity of [place] [facility] 4.2.7.2.686 Zay as [id number] [facility] 009 Branch 2020-04-10 2020-04-10 Orders Doctor SUDHA 1.2.840.114 [id number] 10 00:00:00 00:00:00 Only Unassigned, ALEM 350.1.13.10 [place] [facility] 4.2.7.2.686 [id number] 009 2020-03-11 2020-03-11 [facility] 677 55680 [place] 10:00:00 10:00:00 t; Gayatri HUSAIN and Quynh FOSTER Gynecology rubén HUSAIN M.D. [facility] 2020-02-28 2020-02-28 [facility] [id number] 86 [place] 08:30:00 08:30:00 t; Gayatri HUSAIN ans ASHA, M.D. 2020-02-23 2020-02-23 [facility] [id number] [place] 11:00:00 11:00:00 t; Gayatri HUSAIN ans ASHA, M.D. 2020-02-16 2020-02-16 Dusty [facility] Obstetric[facility] 673 [id number] [place] 14:15:00 14:15:00 t; Yue ROCHA i, M.D. Gynecology Dinah Crawford M.D. Clinic 2020-02-15 2020-02-15 Emergency E AMELIE, MHSE MHSE 7510 20:06:00 21:19:00 [facility] 2020-02-14 2020-02-14 Appointpeng [facility] Obstetric[facility] 6679 [id number] [place] 09:00:00 09:00:00 t; SAMIR MATAMOROS, and Quynh DAWSON M.D. Gynecology rubén Mend[facility] 2020-01-31 2020-01-31 AppointMARIBEL Meng Obstetrics 667 [id number] [place] 08:30:00 08:30:00 t; JUNE and Jennifer AGRAWAL D.O. Gynecology Dinah Webb D.OMell Clinic 2019-12-20 2019-12-20 AppointMARIBEL Pimentel Orthopedics 65 [id number] [place] 09:30:00 09:30:00 t; JOSE ROBERTO [facility] ramirez GOSS M.D. Sports ans Jewel CID M.D. [facility] 2019-12-20 2019-12-20 Outpatient Raju_P MMG G [id number] 020 [place] 04:51:00 04:51:00 0415 [facility] 2019-12-18 2019-12-18 Emergency E TABBY, MHSE MHSE 7500 MH 20:54:00 21:40:00 DEBBIE [facility] shona [facility] 2019-10-11 2019-10-12 Emergency X LAZARUS, [facility] ERT [id number] Univers 21:52:36 00:17:00 DONTA ity of [facility] 2019-10-11 2019-10-12 Emergency [facility] 1.2.604.036 1295 3555 Univers 21:52:36 00:17:00 Donta Guerrero 350.1.13.10 i ty of [place] 4.2.7.2.686 [facility] [id number] [facility] 084 [place] 2019-10-11 2019-10-12 Emergency [facility] 1.2.427.807 2409 3555 21:52:36 00:17:00 Donta Guerrero 350.1.13.10 [place] [address] [place] [address] [id number] 08 2019-10-11 2019-10-11 Orders Doctor HALEY 1.2.840.114 [id number] Univers 00:00:00 00:00:00 Only Unassigned, ALEM 350.1.13.10 [facility] 4.2.7.2.686 [facility] [id number] [facility] 009 Branch 2019-10-11 2019-10-11 Orders Doctor HALEY 1.2.840.114 [id number] 54 00:00:00 00:00:00 Only Unassigned, ALEM 350.1.13.10 [place] [facility] 4.2.7.2.686 [id number] 009 2019-06-28 2019-06-28 Appointmen MARIBEL GRUBBS Obstetrics 580 61018 [place] 16:00:00 16:00:00 t; Gayatri CAVANAUGH and Ph ysici HUMERA, Gynecology Dinah Medina M.D. [facility] 2019-05-12 2019-05-12 Nurse Visit, [facility] Nurse [facility] 1.2 .840.114 [id number] [facility] 10:44:42 12:05:57 Visit Perri Pérez INTERNATIONAL MARKETING MANAGER 350.1.13.10 ity of [facility] 4.2.7.2.686 Zay as MATERNAL [id number] Med ical & CHILD [address] [place] [address] 2019-05-12 2019-05-12 Nurse Visit, [facility] 1.2.840.114 [id number] 60 10:44:42 12:05:57 Visit [facility] INTERNATIONAL MARKETING MANAGER 350.1.13.10 Nurse [facility] 4.2.7.2.686 MATERNAL [id number] & CHILD [address] [place] [address] 2019-05-10 2019-05-10 Telephone [facility] 1.2.840.114 [id number] [facility] 00:00:00 00:00:00 Perri Olivier INTERNATIONAL MARKETING MANAGER 350.1.13.10 it y of [facility] 4.2.7.2.686 Zay as MATERNAL [id number] Med ical & CHILD [address] [place] [address] 2019-05-10 2019-05-10 Telephone [facility] 1.2.840.114 [id number] 00:00:00 00:00:00 Perri Olivier INTERNATIONAL MARKETING MANAGER 350.1.13.10 [facility] 4.2.7.2.686 MATERNAL [id number] & CHILD [address] [place] [address] 2019-04-03 2019-04-03 Patient ROBIN Mcfadden 1.2.840.114 [id number] [id number] Univers 00:00:00 00:00:00 Secure [facility] [place] HEALTH 350.1.13.10 ity of [facility] 4.2.7.2.[place] [id number] [facility] [address] 2019-04-03 2019-04-03 Patient ROBIN Mcfadden 1.2.840.114 [id number] 02915 00:00:00 00:00:00 Secure Msg Ivet Y HEALTH 350.1.13.10 [facility] 4.2.7.2.686 [id number] 113 2019-03-07 2019-03-07 Patient Doctor SUDHA 1.2.840.114 [id number] 20 Univers 00:00:00 00:00:00 Secure Msg Unassigned, ALEM 350.1.13.10 ity of [place] [facility] 4.2.7.2.686 Zay as [id number] [address] 2019-03-07 2019-03-07 Patient Doctor SUDHA 1.2.840.114 [id number] 20 00:00:00 00:00:00 Secure Msg Unassigned, ALEM 350.1.13.10 [place] [facility] 4.2.7.2.686 [id number] 044 2019-02-27 2019-02-27 Patient Doctor SUDHA 1.2.840.114 [id number] 58 Univers 00:00:00 00:00:00 Secure Msg Unassigned, ALEM 350.1.13.10 ity of [place] [facility] 4.2.7.2.686 Zay as [id number] [address] 2019-02-27 2019-02-27 Patient Doctor SUDHA 1.2.840.114 [id number] 58 00:00:00 00:00:00 Secure Msg Unassigned, ALEM 350.1.13.10 [place] [facility] 4.2.7.2.686 [id number] 044 2018-10-13 2018-10-13 AppointMARIBEL Puente [place] [id number] 058 [place] 14:30:00 14:30:00 t; Jennifer FINK i, M.D. ans JORDAN, M.D. 2018-09-07 2018-09-21 Outpatient [facility] [id number] 15:00:00 10:19:03 2018-09-07 2018-09-07 AppointMARIBEL Rae Manager [employer] [id number] [place] 15:00:00 15:00:00 t; BONITA KRISHNA, Phys Gayatri Gomez M.D. Results Test Description Test Time Test Comments Results Result Comments Source TROPONIN I 2023-01-21 20:27:33 Test Item Value Reference Range Interpretation Comme nts TROPONIN I (test code = 0210646966) <=0.034 ANGI (test code = ANGI) Reference [...] biotin. Lab Interpretation (test code = Normal 60902-0) [facility] [id number] 20:18:51 Test Item Value Reference Range Interpretation Comments NA (test code = 132 mmol/L 135-145 L 2736846160) K (test code = 4.1 mmol/L 3.5-5.0 4734497256) CL (test code = 98 mmol/L 98-108 1998873199) CO2 TOTAL (test code = 26 mmol/L 23-31 7720412075) AGAP (test code = 8 2-16 6905357663) BUN (test code = 12 mg/dL 7-23 6163302269) GLUCOSE (test code = 79 mg/dL 70-110 8562607715) CREATININE (test code = 0.58 mg/dL 0.50-1.04 1994895683) TOTAL BILI (test code = 0.4 mg/dL 0.1-1.9 8819251089) CALCIUM (test code = 9.0 mg/dL 8.6-10.6 8442246725) T PROTEIN (test code = 7.4 g/dL 6.3-8.2 1756152305) ALBUMIN (test code = 4.5 g/dL 3.5-5.0 7137737883) ALK PHOS (test code = 62 U/L 34-122 7774602079) ALTv (test code = 23 U/L 535 1742-6) AST(SGOT) (test code = 31 U/L 13-40 3758886991) eGFR (test code = 122.1 mL/min/1.73m2 5819918304) ANGI (test code = ANGI) Association of [...] tests). Lab Interpretation Abnormal (test code = 02411-7) [facility], [id number] 20:18:51 Test Item Value Reference Range Interpretation Comments LIPASE (test code = 7254350614) 186 U/L 0-220 Lab Interpretation (test code = Normal 97274-8) [facility] with [id number] 19:39:40 Test Item Value Reference Range Interpretation Comments WBC (test code = 5.62 See_Comment [Automated 8772-2) message] The sy stem which generated this [...] RDW-SD (test code = 44.1 fL 39.0-49.9 05936-3) RDW-CV (test code = 13.2 % 12.0-15.5 788-0) PLT (test code = 277 See_Comment [Automated 777-3) message] The sy stem which generated this result transmitted reference range : 166 - 358 10*3/ ?L. The reference r dagoberto was not used to interpret this result as normal/abnormal . MPV (test code = 8.5 fL 9.5-12.9 L 35801-3) NRBC/100 WBC (test 0.0 See_Comment [Automat ed code = 9457788623) message] The system which generated this result transmitted reference range : 0.0 - 10.0 /100 WBCs. The refer ence range was not u sed to interpret th is result as normal/abnormal . NRBC x10^3 (test code See_Comment [Auto mated = 3314366266) message] The s ystem which generated this result transmitted reference range : 10*3/?L. The reference range was not used to interpret this result as normal/abnormal . GRAN MAT (NEUT) % 46.4 % (test code = 770-8) IMM GRAN % (test code 0.90 % = 6933362542) LYMPH % (test code = 38.6 % 736-9) MONO % (test code = 12.5 % 5905-5) EOS % (test code = 0.7 % 713-8) BASO % (test code = 0.9 % 706-2) GRAN MAT x10^3(ANC) 2.61 10*3/uL 1.88-7.09 (test code = 5758054653) IMM GRAN x10^3 (test 0.05 10*3/uL 0.00-0.06 code = 4935540729) LYMPH x10^3 (test code 2.17 10*3/uL 1.32-3.29 = 731-0) MONO x10^3 (test code 0.70 10*3/uL 0.33-0.92 = 742-7) EOS x10^3 (test code = 0.04 10*3/uL 0.03-0.39 711-2) BASO x10^3 (test code 0.05 10*3/uL 0.01-0.07 = 704-7) Lab Interpretation Abnormal (test code = 20229-1) [facility] [id number] 19:34:00 Test Item Value Reference Range Interpretation Comments POCT PREG (test code = 1605) Negative On board controls acceptable with Yes C Line (test code = 3574) POCT PREG LOT # (test code = 3575) [id number] POCT PREG TEST DATE (test 04/13/2024 code = 3576) Lab Interpretation (test code = Normal 42559-4) [facility]. METABOLIC PANEL ([id number])2023-01-15 15:36:17 Test Item Value Reference Range Interpretation Comments NA (test code = 139 mmol/L 135-145 0329420446) K (test code = 4.7 mmol/L 3.5-5.0 4617356991) CL (test code = 103 mmol/L 98-108 4015516275) CO2 TOTAL (test code 28 mmol/L 23-31 = 9448443009) AGAP (test code = 8 2-16 9893406155) BUN (test code = 14 mg/dL 7-23 0800598964) GLUCOSE (test code = 75 mg/dL 70-110 7644200901) CREATININE (test code 0.72 mg/dL 0.50-1.04 = 2262314845) TOTAL BILI (test code 0.4 mg/dL 0.1-1.1 = 6894720030) CALCIUM (test code = 9.4 mg/dL 8.6-10.6 8374368739) T PROTEIN (test code 7.4 g/dL 6.3-8.2 = 0518160009) ALBUMIN (test code = 4.5 g/dL 3.5-5.0 8755709565) ALK PHOS (test code = 58 U/L 34-122 3147623597) ALTv (test code = 22 U/L 5-35 1742-6) AST(SGOT) (test code 24 U/L 13-40 = 1231884188) eGFR (test code = 95.1 mL/min/1.73m2 3407323531) ANGI (test code = ANGI) Association of [...] in imaging tests). [facility] 15:36:17 Test Item Value Reference Range Interpretation Comments LIPASE (test code = 4327278499) 93 U/L 0-220 Lab Interpretation (test code = Normal 95239-8) [facility] WITH [id number] 15:19:14 Test Item Value Reference Range Interpretation Comments WBC (test code = 7.99 See_Comment [Automated 3090-2) message] The sy stem which generated this [...] RDW-SD (test code = 42.5 fL 39.0-49.9 00544-4) RDW-CV (test code = 12.9 % 12.0-15.5 788-0) PLT (test code = 317 See_Comment [Automated 777-3) message] The sy stem which generated this result transmitted reference range : 166 - 358 10*3/ ?L. The reference r dagoberto was not used to interpret this result as normal/abnormal . MPV (test code = 8.8 fL 9.5-12.9 L 89204-4) NRBC/100 WBC (test 0.0 See_Comment [Automat ed code = 5999785402) message] The system which generated this result transmitted reference range : 0.0 - 10.0 /100 WBCs. The refer ence range was not u sed to interpret th is result as normal/abnormal . NRBC x10^3 (test code See_Comment [Auto mated = 7721684186) message] The s ystem which generated this result transmitted reference range : 10*3/?L. The reference range was not used to interpret this result as normal/abnormal . GRAN MAT (NEUT) % 55.7 % (test code = 770-8) IMM GRAN % (test code 0.30 % = 5639944149) LYMPH % (test code = 34.0 % 736-9) MONO % (test code = 8.1 % 5905-5) EOS % (test code = 1.0 % 713-8) BASO % (test code = 0.9 % 706-2) GRAN MAT x10^3(ANC) 4.45 10*3/uL 1.88-7.09 (test code = 6594308208) IMM GRAN x10^3 (test 0.00-0.06 code = 3464750530) LYMPH x10^3 (test code 2.72 10*3/uL 1.32-3.29 = 731-0) MONO x10^3 (test code 0.65 10*3/uL 0.33-0.92 = 742-7) EOS x10^3 (test code = 0.08 10*3/uL 0.03-0.39 711-2) BASO x10^3 (test code 0.07 10*3/uL 0.01-0.07 = 704-7) Lab Interpretation Abnormal (test code = 87158-1) [facility] [id number] 16:38:09 Test Item Value Reference Range Interpretation Comments POCT Creatinine (test code = 0.7 mg/dL 0.5-1.2 6382494665) Lab Interpretation (test code = Normal 09407-7) [facility] HospitalTHYROID STIMULATING [id number] 17:16:01 Test Item Value Reference Range Interpretation Comments TSH (test code = 3.96 See_Comment [Automated message] 1596983066) The system [employer] h generated this result transmitted ref erence range: 0.45 - 4 .70 mIU/L. The refe rence range was not u sed to interpret this result as normal/abnor mal. Lab Interpretation (test Normal code = 42843-0) [facility]D-[id number] 11:33:33 Test Item Value Reference Interpretation Comments Range D-DIMER (test code = See_Comment [Autom ated 3348997660) message] The system which generated this result [...] diagnosis. Lab Interpretation Normal (test code = 12028-5) [facility] [id number] 10:57:27 Test Item Value Reference Range Interpretation Comments TROPONIN I (test code = 0.012 ng/mL <=0.034 2748902543) ANGI (test code = ANGI) Reference (Normal) [...] biotin. Lab Interpretation Normal (test code = 17096-5) [facility] [id number] 09:04:18 Test Item Value Reference Range Interpretation Comments TROPONIN I (test code = 0.010 ng/mL <=0.034 6193901417) ANGI (test code = ANGI) Reference (Normal) [...] biotin. Lab Interpretation Normal (test code = 12771-0) [facility] WITH [id number] 09:03:38 Test Item Value Reference Range Interpretation Comments WBC (test code = 10.76 See_Comment [Automated 2093-2) message] The sy stem which generated this result transmitted reference range : 4.30 - 11.10 10*3/?L. The reference range was not used to interpret this result as normal/abnormal . RBC (test code = 4.19 See_Comment [Automated 364-8) message] The sy stem which generated this [...] (test code = 36.7 fL 39.0-49.9 L 42736-1) RDW-CV (test code = 11.6 % 12.0-15.5 L 788-0) PLT (test code = 317 See_Comment [Automated 396-3) message] The sy stem which generated this result transmitted reference range : 166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 TIMMONS, BILLING TYPIST Referring MD: Rik Escobar MD Anesthesia: Monitored [...] the anesthesiologist, the anesthetis t and the process controls technician in the pre-procedure area i n [...] PATIENT NAME: LONA MARIE ACCOUNT #: [id number] procedure. The physical status of the patient [...] PATIENT NAME: LONA MARIE ACCOUNT #: [id number] Procedure Date: 12/26/2020 11:38:36 AM Provation {[id number]}.pdf ProVation FT PDF at 1240 PATIENT NAME: LONA MARIE ACCOUNT #: [id number] 2020-12-22 22:14:00-00:[address] [facility] EMER[facility]ENCY PROVIDER REPORT REPORT#:[id number] REPORT STATUS: Signed DATE:12/22/20 TIME: 2213 PATIENT: LONA MARIE UNIT #: [id number] ROOM: BED: AGE: 30 SEX: F PCP PHYS: No Primary or Family Ph ysician SERVICE AUTHOR: Jayme Rodríguez MD * ALL edits or amendments must be made on the el [employer]/computer document * HPI-Abd Pain F Under 40 [...] #50 TAB Prov: 08/25/20 Reported Medications Hydrocodone/Apap ([place] 10/325) 1 TAB PO Q4H PRN PAIN [...] 2146 Pulse 89 12/22 2146 Resp 12/22 Last Documented: Result Date Time Pulse Ox 100 12/22 2146 B/P 148/89 12/22 2146 B/P Mean 108 12/22 2146 O2 Delivery Room air 12/22 2146 Temp 36.6 12/22 2146 Pulse 89 12/22 2146 Resp 12/22 Review of Vital Signs Reviewed Basic Physical [...] (Auto) (20.5 - 51.1 %) 24.3 [place] % (Auto) (1.7 - 9.3 %) 6.4 Eos % (Auto) (0.0 - 7.0 %) 1.2 Baso % (Auto) (0 - 2.5 %) 0.7 Neut # (Auto) (1.80 - 7.70 x10 3/uL) 6.87 Lymph # (Auto) (1.00 - 4.80 x10 3/uL) 2.49 [place] # (Auto) (0.00 - 0.80 x10 3/uL) 0.66 Eos # (Auto) (0.00 - 0.45 x10 3/uL) 0.12 Baso # (Auto) (0.0 - 0.20 x10 3/uL) 0.07 Urines Urine Color (YELLOW DISCRIPT) YELLOW Urine Appearance (CLEAR DISCRIPT) CLEAR Urine pH (5.0 - 9.0) 5.5 Ur Specific Roscoe (1.005 - 1.030) 1.025 Urine Protein (NEGATIVE [...] Documented in MUSE Yes Date 12/22/20 Time 2203 Interpreted by ED physician NL ECG Interpretation Normal rate Rate 81 Re-Evaluation MDM Free Text MDM Notes Free Text MDM Notes On reevaluation patient is r esting comfortably in the room in no acute distress. Patient is not around 1 cm inside the ED. Patie nt was given a p.o. challenge and passed inside the ED. Patient was ad vised to be discharged home and needed to follow-up with her GI doctor tomorrow. On discharge pt began to ask for pain meds to go home with. Pt was advised that she had a HAT BLOCK MAKER score of 480 and would nee d [...] Admin Hydrocodone Bitart/ 1 TAB X1ED STA 12/224 DC 12/22 Acetaminophen PO 12/22 2314 231 Electrolytic, Caloric, And Jair Sig/Arina Start time Last Medication Dose Route Stop Time Status Admin Sodium Chloride 1,000 ML X1ED STA 12/22 2153 DC 12/22 IV 12/23 2251 230 Gastrointestinal Drugs Sig/Arina Start time Last Medication Dose Route Stop Time Status Admin Ondansetron HCl 4 MG X1ED STA 12/22 2152 DC IV 12/22 2153 230 Patient Discharge Departure Vital Signs/Condition Vital Signs First Documented: Result Date Time Pulse Ox 100 12/22 214 B/P 148/89 12/22 2147 B/P Mean 108 12/22 2147 O2 Delivery Room air 12/22 214 Temp 36.6 12/22 2147 Pulse 89 12/22 2147 Resp 16 12/22 2146 Last Documented: Result Date Time Pulse Ox 100 12/22 2147 B/P 148/89 12/22 2147 B/P Mean 108 12/22 2147 O2 Delivery Room air 12/22 2146 Temp 36.6 12/22 2147 Pulse 89 12/22 2147 Resp 16 12/22 2146 All vital signs [...] to ED Rx Drug Database Reviewed Ye s Pt had a score of 480 and will not be discharged home with opioids due to this score. (Auto) Prescriptions Current Visit Scripts Dicyclomine (Bentyl) 20 MG PO QID Dicyclomine (Bentyl) 20 MG PO QID #30 TABS Ondansetron Odt (Zofran Odt) 4 MG PO Q6H PRN PRN NAUSEA/VOMITING Ondansetron Odt (Zofran Odt) 4 MG PO Q6H PRN MI N NAUSEA/VOMITING #15 TABS Patient Instructions Abdominal [...] symptoms should prompt an immediate return to [facility] or the closest emergency department or a call to 911. Electronically Signed by Jayme Rodríguez MD on at 0016 RPT #:[id number] END OF REPORT 2020-12-22 22:03:00-00:00 [id number] [place] [address] PATIENT NAME: LONA MARIE ADMIT DATE: ACCOUNT NO: [id number] ROOM NO: AGE: 30 REPORT TYPE: eELECTROCARDIOGRAM SEX: F ADMITTING PHYSICIAN: ATTENDING PHYSICIAN: Order: [id number] Test Reason : Test Date/Time Stamp: [place] Dec 22 2020 22:03:30 Blood Pressure : / mmHG Vent. Rate : 081 BPM Atrial Rate : 081 BPM P-R Int : 142 ms QRS Dur : 068 ms QT Int : 352 ms P-R-T Axes : 048 074 046 degre es QTc Int : 408 ms Normal sinus rhythm Normal ECG No previous ECGs available Confirmed by LIBRADO MAS MD ([id number]) on 12/24/19 5:40:11 PM Referred By: Jayme Rodríguez Confirmed by:LIBRADO MAS MD Electronically Signed by Librado Mas MD on 0 12/23/20 at 1740 PATIENT NAME: LONA MARIE ACCOUNT #: [id number] 2020-08-25 11:44:00-00:00 [id number] [facility] [address] [place] [address] PATIENT NAME: LONA MARIE ADMIT DATE: ACCOUNT NO: [id number] ROOM NO: P.[facility] AGE: 30 REPORT TYPE: PROGRESS NOTE [...] It appears she has been seen by WRITER TECH[employer] PUBLICATION[employer] at [facility] to follow up may be warranted also. Dictated By: Naheed Taylor DO WT: PN:PYOLANDA/RADHA/NTS Conf#: [id number]/DID#: [id number] Authenticated by Naheed Taylor DO On 11:59:25 AM PATIENT NAME: LONA MARIE [address]3274 at 1159 PATIENT NAME: LONA MARIE [address] 2020-08-25 11:42:00-00:00 [id number] [place] [id number] PATIENT NAME: LONA MARIE ADMIT DATE: ACCOUNT NO: [id number] ROOM NO: [facility] AGE: 30 REPORT TYPE: CONSULTATION SEX: [...] repor uche dark stools. She was at [facility] and w as transferred here to Dr. [...] uncertain etiology . PATIENT NAME: LONA MARIE [id number] PLAN: I discussed the case with Dr. Riaz guerra. She was able to eat, although she does have vomiting and nausea reported. Encourag ed to use the hydrocodone. We will see how she does. If she can tolerate p.o., the plan is for her to have outpatient workup. She has been seen by [employer] at [facility], Dr. Escobar, the cart pusher. She may need urology als o. Dictated By: Naheed Taylor DO WT: CON:KARLIE/RADHA/NTS Conf#: [id number]/DID#: [id number] Authenticated by Naheed Taylor DO On 11:59:26 AM at 1159 PATIENT NAME: LONA MARIE [id number] 2020-08-23 13:16:00-00:00 [id number] [place] [address] PATIENT NAME: LONA MARIE ADMIT DATE: ACCOUNT NO: [id number] ROOM NO: [facility] AGE: 30 REPORT TYPE: ENDOSCOPY REPORT SEX: F ADMITTING PHYSICIAN:Olegario Srivastava MD ATTENDING PHYSICIAN:Olegario Srivastava MD [facility] Gastroenterology Patient Name: Cynthia Zamorano Attending MD: Rik giron MD Procedure Date: 08/23/2020 1:16 PM 80 Date of : 06/07 Admit Type: Inpatient Age: 30 Room: Room 2 Gender: Female Note Status: Finalized Procedure: Upper GI endoscopy Pre Procedure Diagnosis: Epigastric abdominal pa in Assistants: Rik Escobar MD, Crystal Auguste (Nurse), Jennifer Varela, Civil Design Specialist, Whitney vora MD Referring MD: Jose Luis [...] the anesthesiologist, the anesthetis t and the process controls technician in the pre-procedure area i n [...] were monitor ed PATIENT NAME: LONA MARIE 05[address] throughout the procedure. The physical status o [...] examined duodenum. Recommendation: - Return patient to [facility] for ongoing care. - Full liquid diet. - Continue present medications. - Await pathology results. Rik Escobar MD Rik Escobar MD 08/23/2020 2:00:54 PM This report has been signed electronically. Number of Addenda: 0 Note Initiated On: 08/23/2020 1:16 PM Procedure Date: 08/23/2020 1:16:08 PM Provation {[id number]}.pdf ProVation FT PDF PATIENT NAME: LONA MARIE 23003 at 1401 PATIENT NAME: LONA MARIE [id number] 2020-08-23 09:24:00-00:[address] [facility] ([facility]) EMERGENCY PROVIDER REPORT REPORT#:[id number] REPORT STATUS: Signed DATE:08/23/20 TIME: 923 PATIENT: LONA MARIE UNIT #: [id number] ROOM: [facility] BED: 1 AGE: 30 SEX: F PCP PHYS: Self Referred SERVICE AUTHOR: Jose Luis Ly MD * ALL edits or amendments must be made on the LifeBook/computer document * HPI-General Illness Free Text HPI [...] enies other complaints. She was admitted at [facility] a few days ago for the [...] Medical History - Adult Stated Complaint ABDOMINAL [id number] INED Allergies Coded Allergies: Penicillins (Severe, rash [...] Returned Time 1000 Call Returned Date 08/23/20 City Plant Supervisor will do egd obs to [facility] Patient Discharge Departure Vital Signs/Condition Vital Signs [...] MD on 08/07 09/25 at 2100 RPT #:[id number] END OF REPORT 2020-08-21 13:35:00-00:00 [facility] ([facility]) Clinical Note REPORT#:[id number] REPORT STATUS: Signed DATE:08/21/20 TIME: 1335 PATIENT: LONA MARIE UNIT #: [id number] ROOM/BED: [address] : 92 AGE: 30 SEX: F ATTEND: Austin Brooke MD ADM AUTHOR: Germania Tabor MD * ALL edits or amendments must be made on the LifeBook/computer document * Clinical Note Note: When I wrote the prescriptions for this patient, the pharmacy ([facility] [phone]) called to tell me they could refill the ativan as written, but not the oxycodone. I told them I would be at the [facility] Tuesday 08/21 ( now today) and that she could get one more r x for the oxycodone to make up for the refill. (I wrote for 3 days worth, and a refill, not wanting to give the patient too many pills at one time). Pt called me yesterday. I returned her call today [phone]. The patient requesting refills of both Ativan and oxycodone. I told her the ativan should have a refill and I confirmed this with the pharmacy. The patient is going to see GI today at a building near [place]. She said she can stop by to [...] more refills from me. Electronically Signed by Geramnia Tabor MD on at 1341 RPT #:[id number] END OF REPORT 2020-08-17 14:31:00-00:00 [id number] [facility] [address], [place] [address] PATIENT NAME: LONA MARIE ADMIT DATE: 08/15/20 ACCOUNT NO: [id number] ROOM NO: .2660 AGE: 30 SEX: F ADMITTING PHYSICIAN: Zulay Brooke MD ATTENDING PHYSICIAN: Zulay Brooke MD ADMISSION DATE: 08/15/2020 DISCHARGE DATE: 08/17/2020 ADMITTING DIAGNOSES: Ruptured ovarian cyst, urin chiara tract infection, abdominal/pelvic pain, narcotic use, heartburn. ADMITTING SERVICE: INTERNATIONAL MARKETING MANAGER hospitalist. CONSULTATIONS: INTERNATIONAL MARKETING MANAGER hospitalist, rhea Choi a second opinion; and general surgery with Dr. Lopez. PROCEDURES: IV antibiotics. Pelvic ultra sound, abdominal ultrasound, abdominal x-ray. HOSPITAL COURSE: The patient is a 30-year-old -1-1-1, who had developed pain shortly postcoital, which was severe, and s he initially went to the [facility] ER in [place]. She came here the next day with [...] was given. Again, the CAT scan from [place] did not show any abnormal dilation of the kidneys or ureters or bladder, no evidence of stones. While here, a comprehensive metabolic panel was normal. Complete blood count was normal with a hemoglobin of 12 and a white count of 9. Her abdominal exam was benign. I attempted to get records as the patient had hysterectomies at [place], the patient allowed me to request those records; however, she declin ed signing to get any records from any [facility] facility. The patient required [...] here. The patient was upset with the INTERNATIONAL MARKETING MANAGER hospitalist who was on the day of [...] medication use. This was also noted on [facility] At this [...] the oral doses of pain medication. Ascencion anrdews did have some symptoms of heartburn and bloating over the evening. We gave her Pepcid and the night INTERNATIONAL MARKETING MANAGER hospitalist, Dr. Coelho, ordered an abdom inal [...] well as to, at some point, obtain fernando w up with the GI physician. She [...] DS:F.SKY/LORA/SUSANNA PATIENT NAME: LONA MARIE 139 Conf#: [id number]/DID#: [id number] Authenticated and Edited by Germania Tabor MD On 08/20/20 12:16:32 AM Electronically Signed by Germania Tabor MD on at 0018 PATIENT NAME: LONA MARIE 139 2020-08-17 10:48:00-00:00 [id number] [facility] [address], [place] [address] PATIENT NAME: LONA MARIE ADMIT DATE: 08/15/20 ACCOUNT NO: [id number] ROOM NO: [facility] AGE: 30 SEX: F ADMITTING PHYSICIAN: Zulay [...] home there and then presented to the [facility] Room for continued pain. Presently, [...] Tabor. Dictated By: Ashlie Lopez MD WT: CON:FYOLANDA/HERSON./NTS Conf#: [id number]/DID#: [id number] Authenticated and Edited by Ashlie laurent MD On 08/21/20 10:46:17 AM Electronically Signed by Ashlie Lopez MD o n 08/21/20 at 1049 PATIENT NAME: LONA MARIE 139 2020-08-17 10:35:00-00:00 [facility] ([facility]) Clinical Note REPORT#:[id number] REPORT STATUS: Signed DATE:08/17/20 TIME: 1035 PATIENT: LONA MARIE UNIT #: [id number] ROOM/BED: [facility] : 92 AGE: 30 SEX: F ATTEND: Austin Brooke MD ADM AUTHOR: Ashlie Lopez MD * ALL edits or amendments must be made on the el [employer]/computer document * Clinical Note Note: Pt seen [...] mostly in the pelvic region -nonsurgical abdomen #[id number] at 1048 RPT #:[id number] END OF REPORT 2020-08-16 21:47:00-00:00 [facility] ([facility]) Clinical Note REPORT#:[id number] REPORT STATUS: Signed DATE:08/16/20 TIME: 2146 PATIENT: LONA MARIE UNIT #: [id number] ROOM/BED: [address] : 92 AGE: 30 SEX: F ATTEND: Austin Brooke MD ADM AUTHOR: Kaylah Coelho MD * ALL edits or amendments must be made on the LifeBook/computer document * Clinical Note Note: CTSP for [...] Coelho MD on 07/26 at 2159 RPT #:[id number] END OF REPORT 2020-08-16 12:35:00-00:00 [facility] ([facility]) Clinical Note REPORT#:[id number] REPORT STATUS: Signed DATE:08/16/20 TIME: 1235 PATIENT: LONA MARIE UNIT #: [id number] ROOM/BED: [address] : 92 AGE: 30 SEX: F ATTEND: Austin Brooke MD ADM AUTHOR: Ghulam Cid III, MD * ALL edits or amendments must be made on the LifeBook/computer document * Clinical Note Note: OB /WRITER TECHNICAL PUBLICATIONS Hospitalist Jose Roberto Consult Requesting physician Dr Germania Tabor Pelvic pain 30 year old white female [id number] S/P hysterect casandra CC Severe lower ab pelvic pain. HPI About 2 nights ago she h ad intercourse with her . She then developed severe lower ab pain that radiated to her upper abdome n. She became bloated. Claims to have had a near syncopal episode after intercourse. She was seen at [facility] in [place] earlier today. CT scan reported showing a [...] D and C, c/section for PIH and breec h at 32 weeks. Recurrent postop bleeding after the c/section. Had d and c and 2 laparoscopic surgeries, claims adhesions found with no cause found for the bleeding. History of fibroids. 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 PMH Past history of seizures, no meds for at le ast 2 years Denies history of depression, psychiatric disor fany H C/section, d and c, 2 laparoscopies, TLH [...] vaginal apex she was complaining of pain. no vaginal bleeding, no vaginal masses grossly seen. [...] (Auto) (14.3 - 34.3 %) 24.1 [place] % (Auto) (5.1 - 10.4 %) 8.3 Eos % (Auto) (0.1 - 3.0 %) 1.0 Baso % (Auto) (0.1 - 1.0 %) 0.6 Neut # (Auto) (K/mm3) 5.9 Lymph # (Auto) (K/mm3) 2.2 [place] # (Auto) (K/mm3) 0.7 Eos # (Auto) (K/mm3) 0.09 Baso # (Auto) (K/mm3) 0.1 Miscellaneous Maternal Serum HCG <1 Urines Urine Color (YELLOW) YELLOW Urine Appearance (CLEAR) CLEAR Urine pH (5 - 9) 5.0 Ur Specific Roscoe (1.001 - 1.035) >1.035 H Urine Protein [...] SG-Pepper Impression By: Jose L Hairston MD A [...] III, MD on 08/25 at 0106 RPT #:[id number] END OF REPORT 2020-08-16 09:18:00-00:00 [facility] ([facility]) Gynecology Progress Note REPORT#:[id number] REPORT STATUS: Signed DATE:08/16/20 TIME: 917 PATIENT: LONA MARIE UNIT #: [id number] ROOM/BED: [address] : 92 AGE: 30 SEX: F ATTEND: Austin Brooke MD ADM AUTHOR: Germania Tabor MD * ALL edits or amendments must be made on the LifeBook/computer document * Subjective Chief Complaint: PAIN, COULDN'T [...] S he states it was done at [place]. She claims to not r emember the surgeon's name. She states she only saw her 3 times, and was sent ho me the day of surgery. Sht states she did not follow -up for her postop visit, but went to an Er [facility] 1-2 weeks later for bloating. She was told she had some fluid in her abdomen, but everything else seemed fine, "and they sent me home with only 10 hydrocodone." She has some papers in her personal belongins arun david--from an [place] or [facility] visit yesterday. The CT [...] I O ending at 0700: 08/16 0700 / 1900 Intake Total 1000.00 Output Total Balance [...] (Auto) (14.3 - 34.3 %) 24.1 [place] % (Auto) (5.1 - 10.4 %) 8.3 Eos % (Auto) (0.1 - 3.0 %) 1.0 Baso % (Auto) (0.1 - 1.0 %) 0.6 Neut # (Auto) (K/mm3) 5.9 Lymph # (Auto) (K/mm3) 2.2 [place] # (Auto) (K/mm3) 0.7 Eos # (Auto) (K/mm3) 0.09 Baso # (Auto) (K/mm3) 0.1 Laboratory Tests 08/15 1535 Miscellaneous Maternal Serum HCG <1 Laboratory Tests 08/15 1635 Urines Urine Color (YELLOW) YELLOW Urine Appearance (CLEAR) CLEAR Urine pH (5 - 9) 5.0 Ur Specific Roscoe (1.001 - 1.035) >1.035 H Urine Protein [...] We could try to get Ct from [facility] to be courired here--I will see sbout requesting. I had the patient sign records to try to get a better idea of prior surgeries. Electronically Signed by Germania Tabor MD on 07/26 at 0933 RPT #:[id number] END OF REPORT 2020-08-16 09:18:00-00:00 [facility] ([facility]) Gynecology Progress Note REPORT#:[id number] REPORT STATUS: Signed DATE:08/16/20 TIME: 917 PATIENT: LONA MARIE UNIT #: [id number] ROOM/BED: .2660-A : 92 AGE: 30 SEX: F ATTEND: Austin Brooke MD ADM AUTHOR: Germania Tabor MD * ALL edits or amendments must be made on the LifeBook/computer document * See Addendum Subjective Chief Complaint: [...] S he states it was done at [place]. She claims to not r emember the surgeon's name. She states she only saw her 3 times, and was sent ho me the day of surgery. Sht states she did not follow -up for her postop visit, but went to an [facility] 1-2 weeks later for bloating. She was told she had some fluid in her abdomen, but everything else seemed fine, "and they sent me home with only 10 hydrocodone." She has some papers in her personal belongins ba g--from an [place] or [facility] visit yesterday. The CT [...] time dose of s tadol which Nurse Mckay brought into the room, but thenthe pt [...] (Auto) (14.3 - 34.3 %) 24.1 [place] % (Auto) (5.1 - 10.4 %) 8.3 Eos % (Auto) (0.1 - 3.0 %) 1.0 Baso % (Auto) (0.1 - 1.0 %) 0.6 Neut # (Auto) (K/mm3) 5.9 Lymph # (Auto) (K/mm3) 2.2 [place] # (Auto) (K/mm3) 0.7 Eos # (Auto) (K/mm3) 0.09 Baso # (Auto) (K/mm3) 0.1 Laboratory Tests 08/15 1535 Miscellaneous Maternal Serum HCG <1 Laboratory Tests 08/15 1635 Urines Urine Color (YELLOW) YELLOW Urine Appearance (CLEAR) CLEAR Urine pH (5 - 9) 5.0 Ur Specific Roscoe (1.001 - 1.035) >1.035 H Urine Protein [...] We could try to get Ct from [facility] to be courired here--I will see sbout requesting. I had the patient sign records to try to get a better idea of prior surgeries. Electronically Signed by Germania Tabor MD on 07/26 at 0933 Addendum 1: 08/16/20 1109 by Germania Tabor MD I looked up the patient's [facility] Aware report with >20 fills for narcotics going back to about 2018. Th ey seem to be in clusters, for a few months she will fill narcotics--even sometim es days apart, and then there will be a gap of a few months. I have sent the release of r ecords to [place] w/o response yet. I then went back to ask the patient if I could also send to [facility], but she said she's not had anything done at [facility] this y ear, only their ER in [place]. I also asked if she would sign [...] second oppinion . I spoke to our cullet trucker who is out of to , but recommended that the other hospitalist see the patient. I have contac uche him. Electronically Signed by Germania Tabor MD on 07/26 at 1123 RPT #:[id number] END OF REPORT 2020-08-16 09:18:00-00:00 [facility] ([facility]) Gynecology Progress Note REPORT#:[id number] REPORT STATUS: Signed DATE:08/16/20 TIME: 917 PATIENT: LONA MARIE UNIT #: [id number] ROOM/BED: 2660-A : 92 AGE: 30 SEX: F ATTEND: Austin Brooke MD ADM AUTHOR: Germania Tabor MD * ALL edits or amendments must be made on the el VisuMotion/computer document * See Addendum Subjective Chief Complaint: [...] S he states it was done at [place]. She claims to not r emember the surgeon's name. She states she only saw her 3 times, and was sent ho me the day of surgery. Sht states she did not follow -up for her postop visit, but went to an [facility] 1-2 weeks later for bloating. She was told she had some fluid in her abdomen, but everything else seemed fine, "and they sent me home with only 10 hydrocodone." She has some papers in her personal belongins arun david--from an [place] or [facility] visit yesterday. The CT [...] (Auto) (14.3 - 34.3 %) 24.1 [place] % (Auto) (5.1 - 10.4 %) 8.3 Eos % (Auto) (0.1 - 3.0 %) 1.0 Baso % (Auto) (0.1 - 1.0 %) 0.6 Neut # (Auto) (K/mm3) 5.9 Lymph # (Auto) (K/mm3) 2.2 [place] # (Auto) (K/mm3) 0.7 Eos # (Auto) (K/mm3) 0.09 Baso # (Auto) (K/mm3) 0.1 Laboratory Tests 08/15 1535 Miscellaneous Maternal Serum HCG <1 Laboratory Tests 08/15 1635 Urines Urine Color (YELLOW) YELLOW Urine Appearance (CLEAR) CLEAR Urine pH (5 - 9) 5.0 Ur Specific [place] (1.001 - 1.035) >1.035 H Urine Protein [...] We could try to get Ct from [facility] to be courired here--I will see sbout requesting. I had the patient sign records to try to get a better idea of prior surgeries. Electronically Signed by Germania Tabor MD on 07/26 at 0933 Addendum 1: 08/16/20 1109 by Germania Tabor MD I looked up the patient's [facility] Aware report with >20 fills for narcotics going back to about 2018. Th ey seem to be in clusters, for a few months she will fill narcotics--even sometim es days apart, and then there will be a gap of a few months. I have sent the release of r ecords to [place] w/o response yet. I then went back to ask the patient if I could also send to [facility], but she said she's not had anything done at [facility] this y ear, only their ER in [place]. I also asked if she would sign [...] second oppinion . I spoke to our cullet trucker who is out of [place], but [...] told me, Dr. Perkins, a doctor at [facility] who did her l [...] Tabor MD on 07/26 at 1507 RPT #:[id number] END OF REPORT 2020-08-16 09:18:00-00:00 [facility] ([facility]) Gynecology Progress Note REPORT#:[id number] REPORT STATUS: Signed DATE:08/16/20 TIME: 917 PATIENT: LONA MARIE UNIT #: [id number] ROOM/BED: 2660-A : 92 AGE: 30 SEX: F ATTEND: Austin Brooke MD ADM AUTHOR: Germania Tabor MD * ALL edits or amendments must be made on the el Vis[employer]/computer document * See Addendum Subjective Chief Complaint: [...] S he states it was done at [place]. She claims to not r emember the surgeon's name. She states she only saw her 3 times, and was sent ho me the day of surgery. Sht states she did not follow -up for her postop visit, but went to an [facility] 1-2 weeks later for bloating. She was told she had some fluid in her abdomen, but everything else seemed fine, "and they sent me home with only 10 hydrocodone." She has some papers in her personal belongins ba frankie--from an [place] or [facility] visit yesterday. The CT [...] (Auto) (14.3 - 34.3 %) 24.1 [place] % (Auto) (5.1 - 10.4 %) 8.3 Eos % (Auto) (0.1 - 3.0 %) 1.0 Baso % (Auto) (0.1 - 1.0 %) 0.6 Neut # (Auto) (K/mm3) 5.9 Lymph # (Auto) (K/mm3) 2.2 [place] # (Auto) (K/mm3) 0.7 Eos # (Auto) (K/mm3) 0.09 Baso # (Auto) (K/mm3) 0.1 Laboratory Tests 08/15 1535 Miscellaneous Maternal Serum HCG <1 Laboratory Tests 08/15 1635 Urines Urine Color (YELLOW) YELLOW Urine Appearance (CLEAR) CLEAR Urine pH (5 - 9) 5.0 Ur Specific [place] (1.001 - 1.035) >1.035 H Urine Protein [...] We could try to get Ct from [facility] to be courired here--I will see sbout requesting. I had the patient sign records to try to get a better idea of prior surgeries. Electronically Signed by Germania Tabor MD on 07/26 at 0933 Addendum 1: 08/16/20 1109 by Germania Tabor MD I looked up the patient's [facility] Aware report with >20 fills for narcotics going back to about 2018. Th ey seem to be in clusters, for a few months she will fill narcotics--even sometim es days apart, and then there will be a gap of a few months. I have sent the release of r ecords to [place] w/o response yet. I then went back to ask the patient if I could also send to [facility], but she said she's not had anything done at [facility] this y ear, only their ER in [place]. I also asked if she would sign [...] second oppinion . I spoke to our cullet trucker who is out of to w[place], but [...] told me, Dr. Perkins, a doctor at [facility] who did her l [...] or coordinating care. Electronically Signed by Germania aTbor MD on 07/26 at 1507 Addendum 3: [...] Tabor MD on 07/26 at 1525 RPT #:[id number] END OF REPORT 2020-08-15 23:15:00-00:00 [facility] WRITER TECHNICAL PUBLICATIONS Admission H P REPORT#:[id number] REPORT STATUS: Signed DATE:08/15/20 TIME: 2314 PATIENT: LONA MARIE UNIT #: [id number] ROOM/BED: [address] : [birth year] AGE: 30 SEX: F ATTEND: Austin Brooke MD ADM AUTHOR: Zulay Brooke MD * ALL edits or amendments must be made on the LifeBook/computer document * History of Present Illness Chief [...] ameliorating or exacerbating factors. She went to [facility] and received IV pain meds without relief. They were going to admit her for pain control, but she declined. S he went home and the pain became unbearable, so she came to [facility]. Of note, she is s/p hysterectomy [...] full range of motion, normal in spection Neuro/CONE MARKER: alert, oriented X 3 Psychiatry: normal affect, [...] (Auto) (14.3 - 34.3 %) 24.1 [place] % (Auto) (5.1 - 10.4 %) 8.3 Eos % (Auto) (0.1 - 3.0 %) 1.0 Baso % (Auto) (0.1 - 1.0 %) 0.6 Neut # (Auto) (K/mm3) 5.9 Lymph # (Auto) (K/mm3) 2.2 [place] # (Auto) (K/mm3) 0.7 Eos # (Auto) (K/mm3) 0.09 Baso # (Auto) (K/mm3) 0.1 Miscellaneous Maternal Serum HCG <1 Urines Urine Color (YELLOW) YELLOW Urine Appearance (CLEAR) CLEAR Urine pH (5 - 9) 5.0 Ur Specific [place] (1.001 - 1.035) >1.035 H Urine Protein [...] Zulay Brooke MD on at 0656 RPT #:[id number] END OF REPORT 2020-08-15 15:05:00-00:00 [facility] ([facility]) EMERGENCY PROVIDER REPORT REPORT#:[id number] REPORT STATUS: Signed DATE:08/15/20 TIME: 1505 PATIENT: LONA MARIE UNIT #: [id number] ROOM/BED: AGE: 30 SEX: F PCP PHYS: No Primary or Family Ph ysician SERVICE AUTHOR: Andressa Razo MD * ALL edits or amendments must be made on the el VisuMotion/computer document * Andressa Razo I 08/15/20 1505: [...] STA 08/15 1503 DCr 1 / IV 10 1504 1553 Electrolytic, Caloric, And Jair Sig/Arina Start time Last Medication Dose Route Stop Time Status Admin Sodium Chloride 1,000 ML X1ED STA /10 1653 D C / IV 10 1654 1726 Sodium Chloride 1,000 ML X1ED [...] of vomiting dark content, patient went to [facility] ER and she got [...] Pulse Ox 100 12/10 1506 B/P 163/92 / 1506 B/P Mean [...] (Auto) (14.3 - 34.3 %) 24.1 [place] % (Auto) (5.1 - 10.4 %) 8.3 Eos % (Auto) (0.1 - 3.0 %) 1.0 Baso % (Auto) (0.1 - 1.0 %) 0.6 Neut # (Auto) (K/mm3) 5.9 Lymph # (Auto) (K/mm3) 2.2 [place] # (Auto) (K/mm3) 0.7 Eos # (Auto) (K/mm3) 0.09 Baso # (Auto) (K/mm3) 0.1 Miscellaneous Maternal Serum HCG <1 Urines Urine Color (YELLOW) YELLOW Urine Appearance (CLEAR) CLEAR Urine pH (5 - 9) 5.0 Ur Specific [place] (1.001 - 1.035) >1.035 H Urine Protein [...] the current impression and/or treatment plan. [facility] is now responsible for the patient's care and final dis position. Care Transferred to Dr Amanda Care Transferred at 1800 Discussed Complaint(s) Yes Laboratory Evaluation Lab evaluation discussed Imaging Studies Ordered, not yet done at 1741 RPT #:[id number] END OF REPORT 2020-08-15 15:05:00-00:00 [facility] ([facility]) EMERGENCY PROVIDER REPORT REPORT#:[id number] REPORT STATUS: Signed DATE:08/15/20 TIME: 1505 PATIENT: LONA MARIE UNIT #: [id number] ROOM/BED: AGE: 30 SEX: F PCP PHYS: No Primary or Family P hysician SERVICE AUTHOR: Andressa Razo MD * ALL edits or amendments must be made on the LifeBook/computer document * See Addendum Andressa Razo I [...] STA 12/10 1503 DCr 1 2/10 IV 12/ 1504 [...] of vomiting dark content, patient went to [facility] ER and she got [...] (Auto) (14.3 - 34.3 %) 24.1 [place] % (Auto) (5.1 - 10.4 %) 8.3 Eos % (Auto) (0.1 - 3.0 %) 1.0 Baso % (Auto) (0.1 - 1.0 %) 0.6 Neut # (Auto) (K/mm3) 5.9 Lymph # (Auto) (K/mm3) 2.2 [place] # (Auto) (K/mm3) 0.7 Eos # (Auto) (K/mm3) 0.09 Baso # (Auto) (K/mm3) 0.1 Miscellaneous Maternal Serum HCG <1 Urines Urine Color (YELLOW) YELLOW Urine Appearance (CLEAR) CLEAR Urine pH (5 - 9) 5.0 Ur Specific [place] (1.001 - 1.035) >1.035 H Urine Protein [...] the current impression and/or treatment plan. [facility] is now responsible for the patient's care and final dis position. Care Transferred to Dr Amanda Care Transferred at 1800 Discussed Complaint(s) Yes Laboratory Evaluation Lab evaluation discussed Imaging Studies Ordered, not yet done at 1741 Addendum 1: 08/15/201805 by José Rader MD for Thomas Chamberlain MD Patient Addendum Addendum at 1806 RPT #:[id number] END OF REPORT 2020-08-15 15:05:00-00:00 [facility] ([facility]) EMERGENCY PROVIDER REPORT REPORT#:[id number] REPORT STATUS: Signed DATE:08/15/20 TIME: 1505 PATIENT: LONA MARIE UNIT #: [id number] ROOM/BED: AGE: 30 SEX: F PCP PHYS: No Primary or Family Ph ysician SERVICE AUTHOR: Andressa Razo MD * ALL edits or amendments must be made on the el Visu[employer]/computer document * See Addendum Andressa Razo I [...] MG X1ED STA 12/10 1503 DCr 1 2/ IV 12/10 1504 1553 Electrolytic, Caloric, And [...] Delivery Room air 12/10 1506 Temp 36.9 08/15 1506 Pulse 110 [...] of vomiting dark content, patient went to [facility] ER and she got [...] (Auto) (14.3 - 34.3 %) 24.1 [place] % (Auto) (5.1 - 10.4 %) 8.3 Eos % (Auto) (0.1 - 3.0 %) 1.0 Baso % (Auto) (0.1 - 1.0 %) 0.6 Neut # (Auto) (K/mm3) 5.9 Lymph # (Auto) (K/mm3) 2.2 [place] # (Auto) (K/mm3) 0.7 Eos # (Auto) (K/mm3) 0.09 Baso # (Auto) (K/mm3) 0.1 Miscellaneous Maternal Serum HCG <1 Urines Urine Color (YELLOW) YELLOW Urine Appearance (CLEAR) CLEAR Urine pH (5 - 9) 5.0 Ur Specific [place] (1.001 - 1.035) >1.035 H Urine Protein [...] the current impression and/or treatment plan. The [facility] is now responsible for the patient's care and final dis position. Care Transferred to Dr Amanda Care Transferred at 1800 Discussed Complaint(s) Yes Laboratory Evaluation Lab evaluation discussed Imaging Studies Ordered, not yet done at 1741 Addendum 1: 08/15/201805 by José Rader MD, Analysa MD Patient Addendum Addendum at 1806 Addendum 2: 08/15/201806 by José Rader MD Patient Addendum Addendum at 1807 RPT #:[id number] END OF REPORT 2020-08-15 15:05:00-00:00 [facility] ([facility]) EMERGENCY PROVIDER REPORT REPORT#:[id number] REPORT STATUS: Signed DATE:08/15/20 TIME: 1505 PATIENT: LONA MARIE UNIT #: [id number] ROOM/BED: AGE: 30 SEX: F PCP PHYS: No Primary or Family Ph ysician SERVICE AUTHOR: Andressa Razo MD * ALL edits or amendments must be made on the LifeBook/computer document * See Addendum Andressa Razo I [...] X1ED STA 12 1652 DCr 12/10 IV 1210 1653 1724 Morphine Sulfate 4 MG X1ED STA 12/10 1503 DCr 1 2/10 IV 12/10 1504 1553 Electrolytic, Caloric, And Jair Sig/Arina Start time Last Medication Dose Route Stop Time Status Admin Sodium Chloride 1,000 ML X1ED STA 1210 1653 DC 12/10 IV 12/10 1654 1726 Sodium Chloride 1,000 ML X1ED STA 12 1515 D C 12/10 IV 12/10 1516 [...] of vomiting dark content, patient went to [facility] ER and she got [...] 1506 Temp 36.9 08/15 1506 Pulse 110 /10 1506 Resp 20 12 1506 Review of Vital Signs Reviewed Basic [...] (Auto) (14.3 - 34.3 %) 24.[address] [place] % (Auto) (5.1 - 10.4 %) 8.3 Eos % (Auto) (0.1 - 3.0 %) 1.0 Baso % (Auto) (0.1 - 1.0 %) 0.6 Neut # (Auto) (K/mm3) 5.9 Lymph # (Auto) (K/mm3) 2.2 [place] # (Auto) (K/mm3) 0.7 Eos # (Auto) (K/mm3) 0.09 Baso # (Auto) (K/mm3) 0.1 Miscellaneous Maternal Serum HCG <1 Urines Urine Color (YELLOW) YELLOW Urine Appearance (CLEAR) CLEAR Urine pH (5 - 9) 5.0 Ur Specific [place] (1.001 - 1.035) >1.035 H Urine Protein [...] the current impression and/or treatment plan. The [facility] is now responsible for the patient's care and final dis position. Care Transferred to Dr Amanda Care Transferred at 1800 Discussed Complaint(s) Yes Laboratory Evaluation Lab evaluation discussed Imaging Studies Ordered, not yet done at 1741 Addendum 1: 08/15/201805 by José Rader MD, Analysa MD Patient Addendum Addendum at 1806 Addendum 2: 08/15/201806 by José Rader MD Patient Addendum Addendum at 1807 Addendum 3: 08/15/201809 by José Rader MD Patient Addendum Addendum at 1810 RPT #:[id number] END OF REPORT 2020-08-15 15:05:00-00:00 [facility] ([facility]) EMERGENCY PROVIDER REPORT REPORT#:[id number] REPORT STATUS: Signed DATE:08/15/20 TIME: 1505 PATIENT: LONA MARIE UNIT #: [id number] ROOM/BED: AGE: 30 SEX: F PCP PHYS: No Primary or Family Ph ysician SERVICE AUTHOR: Andressa Razo MD * ALL edits or amendments must be made on the LifeBook/[employer] document * See Addendum Andressa Razo I [...] MG X1ED STA 08/15 184 DC r 10 IV 08/15 184 1904 Hydromorphone HCl 1 MG X1ED STA 08/15 1652 DCr / IV 08/15 1653 1724 Morphine Sulfate 4 MG X1ED STA 08/15 1503 DCr 1 2/10 IV 08/15 1504 1553 Electrolytic, Caloric, And Jair Sig/Arian Start time Last Medication Dose Route Stop Time Status Admin Sodium Chloride 1,000 ML X1ED STA 08/15 1653 DC 12/10 IV 10 1654 1726 Sodium Chloride 1,000 ML X1ED [...] 1506 Temp 36.9 12/ 1506 Pulse 110 / 1506 Resp 20 / 1506 Last Documented: Result Date Time Pulse Ox 100 08/15 1834 B/P 138/66 / 1834 B/P Mean 90 08/15 1834 Temp 36.8 / 1834 Pulse 99 / 1834 Resp 18 / 1834 O2 Delivery Room air 12/ 1732 All vital signs available at the [...] of vomiting dark content, patient went to [facility] ER and she got [...] Documented: Result Date Time Pulse Ox 100 12 1506 B/P 163/92 08/15 1506 B/P Mean 115 08/15 1506 O2 Delivery Room air 08/15 150 Temp 36.9 08/15 1506 Pulse 110 08/15 1506 Resp 20 08/15 1506 Last Documented: Result Date Time Pulse Ox 100 08/15 1834 B/P 138/66 08/15 1834 B/P Mean 90 08/15 183 Temp [...] (Auto) (14.3 - 34.3 %) [address] [place] % (Auto) (5.1 - 10.4 %) 8.3 Eos % (Auto) (0.1 - 3.0 %) 1.0 Baso % (Auto) (0.1 - 1.0 %) 0.6 Neut # (Auto) (K/mm3) 5.9 Lymph # (Auto) (K/mm3) 2.2 [place] # (Auto) (K/mm3) 0.7 Eos # (Auto) (K/mm3) 0.09 Baso # (Auto) (K/mm3) 0.1 Miscellaneous Maternal Serum HCG <1 Urines Urine Color (YELLOW) YELLOW Urine Appearance (CLEAR) CLEAR Urine pH (5 - 9) 5.0 Ur Specific [place]coe (1.001 - 1.035) >1.035 H Urine Protein [...] Impressions: ULTRASOUND - US TRANSVAGINAL W/PELVIS 08/15 184 Report Impression - Status: SIGNED Entered: 08/15/2020 0506 IMPRESSION: 1. Abnormal small volume free pelvic fluid. 2. Nonvisualization of the uterus and ovaries. SL: SG-H Impression By: [email or web address] - Rubin Hairston MD ULTRASOUND - US PELVIS COMPLETE 08/15 1751 Report Impression - Status: SIGNED Entered: 08/15/2020 1837 IMPRESSION: 1. Abnormal small volume free pelvic fluid. 2. Nonvisualization of the uterus and ovaries. SL: SG-H Impression By: [email or web address] - Rubin Hairston MD Lab Imaging Statement [...] the current impression and/or treatment plan. The [facility] is now responsible for the patient's [...] Consultation Consultation Referral/Consult Name Zulay Brooke MD City Plant Supervisor Called Hospitalist Requested Call Time 2112 Requested Call Date 08/15/20 Call Returned Call returned Call Returned Time 2113 Call Returned Date 08/15/20 City Plant Supervisor Will see patient at 1741 Addendum 1: 08/15/201805 by José Rader MD for Thomas Chamberlain MD Patient Addendum Addendum at 1806 Addendum 2: 08/15/201806 by José aRder MD Patient Addendum Addendum at 1807 Addendum 3: 08/15/201809 by José Rader MD Patient Addendum Addendum at 1810 RPT #:[id number] END OF REPORT 2020-08-15 15:05:00-00:00 [facility] ([facility]) EMERGENCY PROVIDER REPORT REPORT#:[id number] REPORT STATUS: Signed DATE:08/15/20 TIME: 1505 PATIENT: LONA MARIE UNIT #: [id number] ROOM/BED: AGE: 30 SEX: F PCP PHYS: No Primary or Family Ph ysician SERVICE AUTHOR: Andressa Razo MD * ALL edits or amendments must be made on the LifeBook/computer document * See Addendum Andressa Razo I [...] X1ED STA 08/15 2109 DC 12/10 IV 12/10 2110 2218 Hydromorphone HCl 0.5 MG X1ED STA 08/15 2011 DC r 12/10 IV 08/15 Hydromorphone HCl 0.5 MG X1ED STA 12 1843 DC r 12/10 IV 12/10 1844 [...] Result Date Time Pulse Ox 100 / 2030 B/P 120/70 / 2030 B/P Mean 86 / 2030 O2 Delivery Room air 08/15 2030 Temp 36.8 12/ 2030 Pulse 90 12/ 2030 Resp 18 12/ 2030 All vital [...] of vomiting dark content, patient went to [facility] ER and she got [...] (Auto) (14.3 - 34.3 %) 24.1 [place] % (Auto) (5.1 - 10.4 %) 8.3 Eos % (Auto) (0.1 - 3.0 %) 1.0 Baso % (Auto) (0.1 - 1.0 %) 0.6 Neut # (Auto) (K/mm3) 5.9 Lymph # (Auto) (K/mm3) 2.2 [place] # (Auto) (K/mm3) 0.7 Eos # (Auto) (K/mm3) 0.09 Baso # (Auto) (K/mm3) 0.1 Miscellaneous Maternal Serum HCG <1 Urines Urine Color (YELLOW) YELLOW Urine Appearance (CLEAR) CLEAR Urine pH (5 - 9) 5.0 Ur Specific [place] (1.001 - 1.035) >1.035 H Urine Protein [...] SGYunior Impression By: Jose L Hairston MD Lab [...] the current impression and/or treatment plan. The [facility] is now responsible for the patient's [...] Consultation Consultation Referral/Consult Name Zulay Brooke MD City Plant Supervisor Called Hospitalist Requested Call Time 2112 Requested Call Date 08/15/20 Call Returned Call returned Call Returned Time 2112 Call Returned Date 08/15/20 City Plant Supervisor Will see patient at 1741 Addendum 1: 08/15/201805 by José Rader MD for Thomas Chamberlain MD Patient Addendum Addendum at 1806 Addendum 2: 08/15/201806 by José Rader MD Patient Addendum Addendum at 1807 Addendum 3: 08/15/201809 by José Rader MD Patient Addendum Addendum at 1810 RPT #:[id number] END OF REPORT 2020-08-15 15:05:00-00:00 [facility] ([facility]) EMERGENCY PROVIDER REPORT REPORT#:[id number] REPORT STATUS: Signed DATE:08/15/20 TIME: 1505 PATIENT: LONA MARIE UNIT #: [id number] ROOM/BED: AGE: 30 SEX: F PCP PHYS: No Primary or Family Ph ysician SERVICE AUTHOR: Andressa Razo MD * ALL edits or amendments must be made on the LifeBook/[employer] document * See Addendum Andressa Razo I [...] 50 MCG X1ED STA 08/15 210 DC 12/ IV 08/15 2110 2218 Hydromorphone [...] 1726 Sodium Chloride 1,000 ML X1ED STA /10 1515 DC 12/10 IV 12/10 1516 1552 [...] of vomiting dark content, patient went to [facility] ER and she got [...] (Auto) (14.3 - 34.3 %) 24.1 [place] % (Auto) (5.1 - 10.4 %) 8.3 Eos % (Auto) (0.1 - 3.0 %) 1.0 Baso % (Auto) (0.1 - 1.0 %) 0.6 Neut # (Auto) (K/mm3) 5.9 Lymph # (Auto) (K/mm3) 2.2 [place] # (Auto) (K/mm3) 0.7 Eos # (Auto) (K/mm3) 0.09 Baso # (Auto) (K/mm3) 0.1 Miscellaneous Maternal Serum HCG <1 Urines Urine Color (YELLOW) YELLOW Urine Appearance (CLEAR) CLEAR Urine pH (5 - 9) 5.0 Ur Specific [place] (1.001 - 1.035) >1.035 H Urine Protein [...] the current impression and/or treatment plan. The [facility] is now responsible for the patient's [...] Consultation Consultation Referral/Consult Name Zulay Brooke MD City Plant Supervisor Called Hospitalist Requested Call Time 2112 Requested Call Date 08/15/20 Call Returned Call returned Call Returned Time 2112 Call Returned Date 08/15/20 City Plant Supervisor Will see patient Free Text MDM Notes Free Text MDM Notes Seen by Dr Brooke, will admit for intractable p elvic pain. Patient Discharge Departure Disposition Decision Admit Admit Physician Name Zulay Brooke MD Admit Physician Hospitalist Request Time 2313 Request Date 08/15/20 )( Admission Accepts Yes )( Accepted Time 231 )( Accepted Date 08/15/20 Discharge/Care Plan Counseled Regarding Diagnosi s, Lab results, Imaging studies, Need for admission at 1741 at 2320 Addendum 1: 08/15/201805 by José Rader MD for Thomas Chamberlain MD Patient Addendum Addendum at 1806 Addendum 2: 08/15/20 180 by José Rader MD Patient Addendum Addendum at 1807 Addendum 3: 08/15/201809 by José Rader MD Patient Addendum Addendum at 1810 RPT #:[id number] END OF REPORT 2020-08-15 15:05:00-00:00 [facility] EMERGENCY PROVIDER REPORT REPORT#:[id number] REPORT STATUS: Signed DATE:08/15/20 TIME: 150 PATIENT: LONA MARIE UNIT #: [id number] ROOM/BED: [address] AGE: 30 SEX: F PCP PHYS: Zulay Brooke MD SERVICE AUTHOR: Andressa Razo MD * ALL edits or amendments must be made on the el [employer]/computer document * See Addendum Andressa Razo I [...] STA 08/15 1843 DC r / IV 12 1844 1904 Hydromorphone HCl 1 MG X1ED STA 08/15 1652 DCr 12/10 IV 1210 1653 1724 Morphine Sulfate 4 MG X1ED STA 08/15 1503 DCr 1 /10 IV 12/ 1504 1553 Electrolytic, Caloric, And [...] Admin Ondansetron HCl 4 MG X1ED STA 10 1503 DC 12/ 10 IV 12/10 1504 [...] B/P 120/70 / 2030 B/P Mean 86 08/15 2030 O2 Delivery Room air 08/15 2030 Temp 36.8 12/10 2030 Pulse 90 08/15 2030 Resp 18 [...] of vomiting dark content, patient went to [facility] ER and she got [...] (Auto) (14.3 - 34.3 %) 24.1 [place] % (Auto) (5.1 - 10.4 %) 8.3 Eos % (Auto) (0.1 - 3.0 %) 1.0 Baso % (Auto) (0.1 - 1.0 %) 0.6 Neut # (Auto) (K/mm3) 5.9 Lymph # (Auto) (K/mm3) 2.2 [place] # (Auto) (K/mm3) 0.7 Eos # (Auto) (K/mm3) 0.09 Baso # (Auto) (K/mm3) 0.1 Miscellaneous Maternal Serum HCG <1 Urines Urine Color (YELLOW) YELLOW Urine Appearance (CLEAR) CLEAR Urine pH (5 - 9) 5.0 Ur Specific [place] (1.001 - 1.035) >1.035 H Urine Protein [...] the current impression and/or treatment plan. [facility] is now responsible for the patient's [...] Consultation Consultation Referral/Consult Name Zulay Brooke MD City Plant Supervisor Called Hospitalist Requested Call Time 2112 Requested Call Date 08/15/20 Call Returned Call returned Call Returned Time 2112 Call Returned Date 08/15/20 City Plant Supervisor Will see patient Free Text MDM Notes [...] Addendum at 1806 at 0217 Addendum 2: 12/06/25 1807 by José Rader MD Patient Addendum Addendum at 1807 Addendum 3: 08/15/201809 by José Rader MD Patient Addendum Addendum at 1810 RPT #:[id number] END OF REPORT 2020-08-15 15:05:00-00:00 [facility]) EMERGENCY PROVIDER REPORT REPORT#:[id number] REPORT STATUS: Signed DATE:08/15/20 TIME: 1505 PATIENT: LONA MARIE UNIT #: [id number] ROOM/BED: 2660-A AGE: 30 SEX: F PCP PHYS: Zulay Brooke MD SERVICE AUTHOR: Andressa Razo MD * ALL edits or amendments must be made on the [employer]Book/computer document * See Addendum Andressa Razo I [...] MG X1ED STA 08/15 2011 D Cr 08/15 IV 08/15 2012 2044 Hydromorphone HCl 0.5 [...] ML X1ED STA 08/15 1653 D C 08/15 IV 08/15 1654 1726 Sodium Chloride 1,000 ML X1ED STA 08/15 1515 DC 08/15 IV 08/15 1516 1552 Gastrointestinal Drugs Sig/Arina Start time Last Medication Dose Route Stop Time Status Admin Ondansetron HCl 4 MG X1ED STA 08/15 1503 DC IV 08/15 1504 1553 Ashley Rader 08/15/20 [...] of vomiting dark content, patient went to [facility] ER and she got [...] (Auto) (14.3 - 34.3 %) 24.1 [place] % (Auto) (5.1 - 10.4 %) 8.3 Eos % (Auto) (0.1 - 3.0 %) 1.0 Baso % (Auto) (0.1 - 1.0 %) 0.6 Neut # (Auto) (K/mm3) 5.9 Lymph # (Auto) (K/mm3) 2.2 [place] # (Auto) (K/mm3) 0.7 Eos # (Auto) (K/mm3) 0.09 Baso # (Auto) (K/mm3) 0.1 Miscellaneous Maternal Serum HCG <1 Urines Urine Color (YELLOW) YELLOW Urine Appearance (CLEAR) CLEAR Urine pH (5 - 9) 5.0 Ur Specific [place] (1.001 - 1.035) >1.035 H Urine Protein [...] B/P 163/92 12/ 1506 B/P Mean 115 08/15 1506 O2 [...] the current impression and/or treatment plan. [facility] is now responsible for the patient's [...] Consultation Consultation Referral/Consult Name Zulay Brooke MD City Plant Supervisor Called Hospitalist Requested Call Time 2112 Requested Call Date 08/15/20 Call Returned Call returned Call Returned Time 2112 Call Returned Date 08/15/20 City Plant Supervisor Will see patient Free Text MDM Notes [...] MD Patient Addendum Addendum at 1810 RPT #:[id number] END OF REPORT 2020-08-15 15:05:00-00:00 [facility] EMERGENCY PROVIDER REPORT REPORT#:[id number] REPORT STATUS: Signed DATE:08/15/20 TIME: 1505 PATIENT: LONA MARIE UNIT #: [id number] ROOM/BED: [address] AGE: 30 SEX: F PCP PHYS: Zulay Brooke MD SERVICE AUTHOR: Andressa Raoz MD * ALL edits or amendments must be made on the el [employer]/computer document * See Addendum Andressa Razo I [...] PROMETHAZINE (PHENERGAN) 12.5 MG PO Q6H PRN NA USEA #30 TAB Prov: 07/09/18 DC: 08/15/20 1540 [...] MG X1ED STA 12 1843 DC r 12/ IV 12/ 1844 1904 Hydromorphone HCl 1 MG X1ED STA 12 1652 DCr 12/10 IV 12/10 1653 1724 Morphine Sulfate 4 MG X1ED STA 12/ 1503 DCr 1 / IV 12/ 1504 1553 Electrolytic, Caloric, And [...] 4 MG X1ED STA 12/10 1503 DC 12 /10 IV 12/10 1504 1553 [facility] 1534: HPI-General Illness Free Text [...] of vomiting dark content, patient went to [facility] ER and she got [...] 92 12/ 0000 O2 Delivery Room air / 0000 Temp 37.0 12/ 0000 Pulse 84 12/ 0000 Resp 18 / 0000 Review of Vital Signs Reviewed Basic [...] (Auto) (14.3 - 34.3 %) 24.1 [place] % (Auto) (5.1 - 10.4 %) 8.3 Eos % (Auto) (0.1 - 3.0 %) 1.0 Baso % (Auto) (0.1 - 1.0 %) 0.6 Neut # (Auto) (K/mm3) 5.9 Lymph # (Auto) (K/mm3) 2.2 [place] # (Auto) (K/mm3) 0.7 Eos # (Auto) (K/mm3) 0.09 Baso # (Auto) (K/mm3) 0.1 Miscellaneous Maternal Serum HCG <1 Urines Urine Color (YELLOW) YELLOW Urine Appearance (CLEAR) CLEAR Urine pH (5 - 9) 5.0 Ur Specific [place] (1.001 - 1.035) >1.035 H Urine Protein [...] Pulse Ox 99 / 0000 B/P 134/71 12/ 0000 B/P Mean 92 / 0000 O2 [...] the current impression and/or treatment plan. [facility] is now responsible for the patient's [...] Consultation Consultation Referral/Consult Name Zulay Brooke MD City Plant Supervisor Called Hospitalist Requested Call Time 2112 Requested Call Date 08/15/20 Call Returned Call returned Call Returned Time 2112 Call Returned Date 08/15/20 City Plant Supervisor Will see patient Free Text MDM Notes Free Text MDM Notes Seen by Dr Brooke, will admit for intractable p elvic pain. Patient Discharge Departure Disposition Decision Admit Admit Physician Name Zulay Brooke MD Admit Physician Hospitalist Request Time 2313 Request Date 08/15/20 )( Admission Accepts Yes )( Accepted Time 2314 )( Accepted Date 08/15/20 Discharge/Care Plan Counseled [...] MD Patient Addendum Addendum at 1810 RPT #:[id number] END OF REPORT 2020-08-05 21:32:00-00:00 [facility] EMERGENCY PROVIDER REPORT REPORT#:[id number] REPORT STATUS: Signed DATE:08/05/20 TIME: 2131 PATIENT: LONA MARIE UNIT #: [id number] ROOM/BED: AGE: 30 SEX: F PCP PHYS: Akiko Awad MD SERVICE AUTHOR: Vivek Poon MD * ALL edits or amendments must be made on the LifeBook/computer document * HPI-Trauma Minor/Fall General Initial Greet [...] (Auto) (14.0 - 32.0 %) 29.0 [place] % (Auto) (4.8 - 9.0 %) 5.0 Eos % (Auto) (0.3 - 3.7 %) 0.5 Baso % (Auto) (0.0 - 2.0 %) 0.5 Neut # (Auto) (2.0 - 7.6 x10 3/uL) 6.60 Lymph # (Auto) (1.0 - 3.8 x10 3/uL) 2.96 [place] # (Auto) (0.1 - 0.8 x10 3/uL) [...] M.D. RADIOLOGY - XR FOREARM 2 VIEWS 08/05 Report Impression - Status: SIGNED Entered: [...] ValentinJBReji Burris D.O. CAT SCAN - CT ABD [...] osseou s fracture or dislocation. Impression By: ValentinJBReji Burris D.O. CAT SCAN - CT CHEST [...] Poon MD n 08/05/20 at 2301 RPT #:[id number] END OF REPORT 2019-02-28 21:13:00-00:00 [facility] EMERGENCY PROVIDER REPORT REPORT#:[id number] REPORT STATUS: Signed DATE:02/28/19 TIME: 2112 PATIENT: LOAN MARIE UNIT #: [id number] ROOM/BED: AGE: 28 SEX: F PCP PHYS: Akiko Awad MD SERVICE AUTHOR: Cheyenne Pearson MD * ALL edits or amendments must be made on the LifeBook/computer document * HPI- Female General Confirmed Patient Yes Initial Greet Date/Time 02/28/192104 PCP Dr. Perkins-surgeon @[facility] Presentation Chief Complaint Abdominal [...] occurred earlier today. Pt reports presenting to [facility] multiple times since 08/22/2018 f or vaginal [...] she states she would not return to [facility]. Pt reports persisting vaginal [...] Pulse Ox 100 03/01 0444 B/P 152/73 03/01 0444 B/P Mean 99 03/01 444 Temp 36.2 [...] Diagnostics Lab Results Interpretation Results Laboratory Tests 02/28/19 2140: [Embedded Image Not Available] Laboratory Tests: 02/28 02/28 2140 2100 Chemistry Sodium (134 - 147 mEq/L) [...] (14.0 - 32.0 %) 10.[address] % (Auto) (4.8 - 9.0 %) 4.6 L Eos % (Auto) (0.3 - 3.7 %) 0.0 L Baso % (Auto) (0.0 - 2.0 %) 0.1 Neut # (Auto) (2.0 - 7.6 x10 3/uL) 7.31 Lymph # (Auto) (1.0 - 3.8 x10 3/uL) 0.[address] # (Auto) (0.1 - 0.8 x10 3/uL) [...] pH (5.0 - 7.0) 6.0 Ur Specific Roscoe (1.005 - 1.030) 1.002 L Urine Protein [...] Report Impression - Status: SIGNED Entered: 02/28/2019 5171 IMPRESSION: 1. No acute CT abnormalities of the abdomen or p león are detected. The finding of free intraperitoneal air is presu mably postoperative given the patient's recent surgical history. 2. 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 SL: 131 Impression By: [email or web address] - Domingo Castro M.D. Lab Imaging Statement Laboratory radiographic studies reviewed and con sidered in the medical decision-making. Point of Care Testing Pulse Oximetry Pulse Ox % 98 On: Room air Interpretation Interpreted by me, Pulse oximetr y normal Time 2119 ECG #1 Interpretation Date 02/28/19 Time 2153 Interpreted by ED physician BENJAMIN ECG Interpretation Normal sinus rhythm, No ST [...] patient for cont inuity of care to [facility] as that is where [...] Pulse Ox 100 03/01 0444 B/P 152/73 03/01 0444 B/P Mean 99 03/014 Temp 36.2 03/01 444 Pulse 96 03/01 0444 Resp 20 03/01 0444 O2 Delivery Room air 02/29 2120 All vital signs available at the time of this en try have been reviewed. Condition Guarded Clinical Impression Clinical Impression Primary Impression: Intractable abdominal pain Disposition Decision Transfer )( Request Time 012 )( Request Date 03/01/19 Call Returned Time 013 Spoke with: Specialty physician (Dr. Parris amor) Receiving [facility] Transfer Accepted Yes Accepted by: Dr. Parris Mendoza )( Acceptance Time 0142 )( Acceptance Date 03/01/19 Transfer Reason Continuity [...] Cheyenne Pearson MD on 0 03/04/19 at 2561 [facility] #:[id number] END OF REPORT 2019-01-25 14:38:00-00:00 [facility] ([facility]) EMERGENCY PROVIDER REPORT REPORT#:[id number] REPORT STATUS: Signed DATE:01/25/19 TIME: 1438 PATIENT: LONA MARIE UNIT #: [id number] ROOM/BED: AGE: 28 SEX: F PCP PHYS: Akiko Awad MD SERVICE AUTHOR: Carolyn Dodson * ALL edits or amendments must be made on the LifeBook/computer document * HPI- Female General Confirmed Patient Yes Initial Greet Date/Time 01/25/19 1413 Presentation Chief Complaint Pelvic pain, Vaginal bleeding Hx Obtained From Patient )( Sudden in Onset? No Free Text HPI Notes Free Text HPI Notes 28yo F with PCOS presents to ED with 5 months of vaginal bleeding and worsening cramps. Seen by Vacuum Furnace Operator with US 2 weeks ago showing [...] 70 01/25 1414 Resp 16 01/25 141 Last Documented: Result Date Time Pulse Ox [...] Lab Results Interpretation Results Laboratory Tests 01/25/19 153: [Embedded Image Not Available] Laboratory Tests: 01/25 [...] (14.0 - 32.0 %) 33.[address] % (Auto) (4.8 - 9.0 %) 6.9 Eos % (Auto) (0.3 - 3.7 %) 0.7 Baso % (Auto) (0.0 - 2.0 %) 0.8 Neut # (Auto) (2.0 - 7.6 x10 3/uL) 4.30 Lymph # (Auto) (1.0 - 3.8 x10 3/uL) 2.44 [place] # (Auto) (0.1 - 0.8 x10 3/uL) [...] 1532 Report Impression - Status: SIGNED Entered: 01/25/20198 [...] Discussed labs and imaging. Recommended f/u with Vacuum Furnace Operator for management ED Course Medication(s) Ordered Medication(s) Ordered: Central Nervous System Agents Sig/Arina Start time Last Medication Dose Route Stop Time Status Admin Morphine Sulfate 4 MG X1ED STA 01/25 1437 DC / IV 01/25 1438 1543 Gastrointestinal Drugs Sig/Arina Start time Last Medication Dose Route Stop Time Status Admin Ondansetron HCl 4 MG X1ED STA 01/25 1437 DC IV 01/25 1438 1543 Patient Discharge Departure Vital Signs/Condition Vital Signs First Documented: Result Date Time Pulse Ox 99 01/25 1414 B/P 115/76 / 1414 B/P Mean 89 / 1414 O2 Delivery Room air 01/25 1414 [...] to ED Prescriptions None at 1652 RPT #:[id number] END OF REPORT 2019-01-25 14:38:00-00:00 [facility] ([facility]) EMERGENCY PROVIDER REPORT REPORT#:[id number] REPORT STATUS: Signed DATE:01/25/19 TIME: 1437 PATIENT: LONA MARIE UNIT #: [id number] ROOM/BED: AGE: 28 SEX: F PCP PHYS: Akiko Awad MD SERVICE AUTHOR: Carolyn Dodson * ALL edits or amendments must be made on the LifeBook/computer document * Carolyn Dodson 01/25/19 1438: HPI- Female General Confirmed Patient Yes Presentation Chief Complaint Pelvic pain, Vaginal bleeding Hx Obtained From Patient )( Sudden in Onset? No Free Text HPI Notes Free Text HPI Notes 28yo F with PCOS presents to ED with 5 months of vaginal bleeding and worsening cramps. Seen by Vacuum Furnace Operator with US 2 weeks ago showing [...] (14.0 - 32.0 %) 33.[address] [place] % (Auto) (4.8 - 9.0 %) 6.9 Eos % (Auto) (0.3 - 3.7 %) 0.7 Baso % (Auto) (0.0 - 2.0 %) 0.8 Neut # (Auto) (2.0 - 7.6 x10 3/uL) 4.30 Lymph # (Auto) (1.0 - 3.8 x10 3/uL) 2.44 [place] # (Auto) (0.1 - 0.8 x10 3/uL) [...] Discussed labs and imaging. Recommended f/u with Vacuum Furnace Operator for management ED Course Medication(s) Ordered [...] 89 01/25 1414 O2 Delivery Room air 05/22 1414 Temp 36.8 01/25 1414 Pulse 70 [...] return to ED Prescriptions None Andrew Wyatt 01/25/197: HPI- Female General Initial Greet Date/Time 01/25/19 1413 Physical Exam Vital Signs Vital Signs Interpretation Diagnostics Lab Results Interpretation Results Re-Evaluation MDM ED Course Medication(s) Ordered Patient Discharge Departure Vital Signs/Condition Vital Signs Supervising Physician Note MidLv Saw Pt Alone I have reviewed the PA/ADOBE BALL MIXER's note and plan of josé miguel andrews. I was available for consultation as needed at al l times during the patient's visit in the emergency department. I agree with the clinical impression , plan and disposition. at 1652 Electronically Signed by Andrew Wyatt MD on at 1817 RPT #:[id number] END OF REPORT
--- NOTE | 2023-03-11 14:58 | RAD REPORT ---
EXAM DESCRIPTION: CT - Head Brain Wo Cont - 03/11/2023 2:25 pm CLINICAL HISTORY: HEADACHE COMPARISON: Head Brain Wo Cont dated 03/03/2023 TECHNIQUE: Noncontrast head CT images were obtained without IV contrast. Multiplanar reformats were generated and reviewed. All CT scans are performed using dose optimization technique as appropriate and may include automated exposure control or mA/KV adjustment according to patient size. FINDINGS: No intracranial hemorrhage, mass, or edema. Midline structures are unremarkable. Normal ventricular caliber for age. Leija-white matter differentiation is preserved, without evidence of acute infarct. No abnormal extra- axial fluid collections. Mastoid air cells and visualized portions of the paranasal sinuses are clear. No acute bony findings. IMPRESSION: No evidence of an acute intracranial process.
[2023-03-11] MEDS ORDERED: NA CHLORIDE 0.9% 1,000 ML ONE (15:48)
[2023-03-11] MEDS ORDERED: METOCLOPRAMIDE 10 MG/2mL INJ ONE (15:48)
[2023-03-11] MEDS ORDERED: DIPHENHYDRAMINE 50 MG/ML VIAL ONE (15:48)
[2023-03-11] MEDS ORDERED: KETOROLAC 30 MG/ML INJ ONE (15:48)
[2023-03-11 15:51] LABS: Specific Gravity < 1.005 (1.005-1.030); Urine Bilirubin NEGATIVE (Negative); Urine Blood Negative (Negative); Urine Clarity Clear (Clear); Urine Color Colorless (Yellow); Urine Glucose NEGATIVE (Negative); Urine Protein NEGATIVE (Negative); Urine Urobilinogen Normal (Normal)
[2023-03-11] MEDS ORDERED: HYDROMORPHONE HCL 1 MG/ML INJ ONE (16:20)
[2023-03-11] MEDS ORDERED: ONDANSETRON 4 MG/2 ML VIAL ONE (16:20)
[2023-03-11 16:36] LABS: Hematocrit 41.8 % (36.0-45.0); Lymphocytes % 31.6 % (15.3-44.8); MCV 90.8 fL (80-100); MPV 8.2 fL (7.6-11.3); RBC Red Blood Cell Count 4.61 M/uL (3.86-4.86)
[2023-03-11 16:42] LABS: Absolute Lymphocytes (CBC) 3.5 K/uL (0.7-4.9)
[2023-03-11 17:04] LABS: Bilirubin Total 0.4 mg/dL (0.2-1.0); Potassium 4.1 mEq/L (3.5-5.1); Protein, Total 7.5 g/dL (6.4-8.2)
--- NOTE | 2023-03-11 17:53 | ER ---
Nurse's Notes [facility] Name: Lona Marie Age: 32 yrs Sex: Female : 1990 Arrival Date: 03/11/2023 Time: 14:01 Bed 12 Private MD: Diagnosis: Headache Presentation: 03/11 14:42 Chief complaint: Patient states: Migraines for over 1 week. Blurred vision off/on for 1 ll1 week. Had floaters in eyes and vision went black in both eyes today so she came in to get checked again. Coronavirus screen: Vaccine status: Patient reports receiving the 2nd dose of the covid vaccine. Client denies travel out of the [place] in the last 14 days. At this time, the client does not indicate any symptoms associated with coronavirus-19. Ebola Screen: Patient denies travel to an Ebola-affected area in the 21 days before illness onset. Initial Sepsis Screen: Does the patient meet any 2 criteria? No. Patient's initial sepsis screen is negative. Does the patient have a suspected source of infection? No. Patient's initial sepsis screen is negative. Risk Assessment: Do you want to hurt yourself or someone else? Patient reports no desire to harm self or others. Onset of symptoms was March 03, 2023. 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 - Social history:: Smoking status: Patient reports the use of cigarette tobacco products, denies chronic smoking, but will smoke occasionally. - Family history:: not pertinent. Screenin:00 [facility] ED Fall Risk Assessment (Adult) History of falling in the last 3 months, ko1 including since admission No falls in past 3 months (0 pts) Confusion or Disorientation No (0 pts) Intoxicated or Sedated No (0 pts) Impaired Gait No (0 pts) Mobility Assist Device Used No (0 pt) Altered Elimination No (0 pt) Score/Fall Risk Level 0 - 2 = Low Risk Oriented to surroundings, Maintained a safe environment, Educated pt \T\ family on fall prevention, incl call for assistance when getting out of bed, Assessed \T\ reinforced patient's understanding of fall precautions, Provided non-skid footwear, Hourly rounding (assess needs \T\ fall precautionary measures) done, Used ambulatory aids as needed (educated on \T\ assisted with), Used gait belt as appropriate. Abuse screen: Denies threats or abuse. Denies injuries from another. Nutritional screening: No deficits noted. Tuberculosis screening: No symptoms or risk factors identified. Assessment: 16:00 General: Appears in no apparent distress. uncomfortable, Behavior is calm, cooperative, ko1 appropriate for age. Pain: Complains of pain in right base of the skull and right occipital area and right side of the back of head and right frontal area and left side of the back of head and left frontal area and forehead and top of head. Neuro: No deficits noted. Cardiovascular: No deficits noted. Respiratory: No deficits noted. GI: No deficits noted. : No deficits noted. EENT: No deficits noted. Derm: No deficits noted. Musculoskeletal: No deficits noted. Vital Signs: 14:42 BP 126 / 95; Pulse 97; Resp 16; Temp 98.6; Pulse Ox 100% ; Weight 68.04 kg; Height 5 ll1 ft. 3 in. ; Pain 6/10; 17:54 BP 118 / 82; Pulse 88; Resp 16; Pulse Ox 99% ; ko1 14:42 Body Mass Index 26.57 (68.04 kg, 160.02 cm) ll1 14:42 Pain Scale: Adult ll1 ED Course: 14:03 Patient arrived in ED. rg4 14:13 Aj Doe MD is Attending Physician. [facility] 14:26 CT Head Brain wo Cont In Process Unspecified. EDMS 14:44 Triage completed. ll1 14:44 Arm band placed on Patient placed in an exam room, on a stretcher. ll1 15:35 Jess Magaña, RN is Primary Nurse. ko1 16:00 Patient has correct armband on for positive identification. Bed in low position. Call ko1 light in reach. Side rails up X 1. Pulse ox on. NIBP on. Door closed. Noise minimized. Lights dimmed. Warm blanket given. 16:00 No provider procedures requiring assistance completed. Missed attempt(s): 22 gauge in ko1 right forearm. Bleeding controlled, band aid applied, catheter tip intact. 16:24 Inserted saline lock: 22 gauge in left forearm, using aseptic technique. Blood ds4 collected. Missed attempt(s): 22 gauge in right forearm. Bleeding controlled, band aid applied, catheter tip intact. 17:52 Gustavo Camacho MD is Referral Physician. peg 17:54 IV discontinued, intact, bleeding controlled, No redness/swelling at site. Pressure ko1 dressing applied. Administered Medications: 16:00 CANCELLED (Duplicate Order): metoCLOPramide IVP 10 mg IVP once; over 1 to 2 minutes peg 16:00 CANCELLED (Duplicate Order): Ketorolac IVP 30 mg IVP once peg 16:24 Drug: NS 0.9% IV 1000 ml Route: IV; Rate: 1 bolus; Site: left forearm; ko1 16:24 Drug: Ondansetron IVP 4 mg Route: IVP; Site: left forearm; ko1 16:31 Drug: diphenhydrAMINE IVP 50 mg Route: IVP; Site: left forearm; ko1 16:31 Drug: HYDROmorphone IVP 1 mg Route: IVP; Site: left forearm; ko1 Medication: 16:00 VIS not applicable for this client. ko1 Outcome: 17:52 Discharge ordered by . peg 17:54 Discharged to home ambulatory. ko1 17:54 Condition: good 17:54 Discharge instructions given to patient, Instructed on discharge instructions, follow up and referral plans. medication usage, Demonstrated understanding of instructions, follow-up care, medications, Prescriptions given X 2. 18:05 Patient left the ED. ko1 Signatures: Dispatcher [employer] EDCO Aj Doe MD MD cha Swanson, Donovan ds4 Candy Rodríguez rg4 Seu Tadeo RN RN ll1 Jess Magaña RN RN ko1 Corrections: (The following items were deleted from the chart) 14:45 14:44 Social history: Smoking status: Patient denies any tobacco usage or history of. ll1 ll1
--- NOTE | 2023-03-11 17:53 | EDPHYS ---
Physician Documentation [facility] Name: Lona Marie Age: 32 yrs Sex: Female : 1990 Arrival Date: 03/11/2023 Time: 14:01 Bed 12 Private MD: GUNJAN Physician Aj Doe HPI: 03/11 16:01 This 32 yrs old Female presents to ER via Ambulatory with complaints of peg Migraine, Blurred Vision. 16:01 The patient complains of pain to the top of head, forehead, left frontal area, left peg side of the back of head, right frontal area, right side of the back of head, right occipital area and right base of the skull. The patient describes the headache as constant. Onset: The symptoms/episode began/occurred 3 day(s) ago. Associated signs and symptoms: Pertinent positives: loss of vision. Severity of symptoms: At its worst the pain was moderate, in the emergency department the pain is unchanged. Headache History: The patient has had previous headaches and this one is similar to previous episodes. The symptoms are alleviated by nothing. the symptoms are aggravated by nothing. 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 - Social history:: Smoking status: Patient reports the use of cigarette tobacco products, denies chronic smoking, but will smoke occasionally. - Family history:: not pertinent. ROS: 16:01 Constitutional: Negative for fever, chills, and weight loss, Eyes: Negative for injury, peg pain, redness, and discharge, ENT: Negative for injury, pain, and discharge, Neck: Negative for injury, pain, and swelling, Cardiovascular: Negative for chest pain, palpitations, and edema, Respiratory: Negative for shortness of breath, cough, wheezing, and pleuritic chest pain, Abdomen/GI: Negative for abdominal pain, nausea, vomiting, diarrhea, and constipation, Back: Negative for injury and pain, : Negative for injury, bleeding, discharge, and swelling, MS/Extremity: Negative for injury and deformity, Skin: Negative for injury, rash, and discoloration, Psych: Negative for depression, anxiety, suicide ideation, homicidal ideation, and hallucinations, Allergy/Immunology: Negative for hives, rash, and allergies, Endocrine: Negative for neck swelling, polydipsia, polyuria, polyphagia, and marked weight changes, Hematologic/Lymphatic: Negative for swollen nodes, abnormal bleeding, and unusual bruising. 16:01 Neuro: Positive for headache. Exam: 16:01 Constitutional: This is a well developed, well nourished patient who is awake, alert, peg and in no acute distress. Head/Face: Normocephalic, atraumatic. Eyes: Pupils equal round and reactive to light, extra-ocular motions intact. Lids and lashes normal. Conjunctiva and sclera are non-icteric and not injected. Cornea within normal limits. Periorbital areas with no swelling, redness, or edema. ENT: Nares patent. No nasal discharge, no septal abnormalities noted. Tympanic membranes are normal and external auditory canals are clear. Oropharynx with no redness, swelling, or masses, exudates, or evidence of obstruction, uvula midline. Mucous membranes moist. Neck: Trachea midline, no thyromegaly or masses palpated, and no cervical lymphadenopathy. Supple, full range of motion without nuchal rigidity, or vertebral point tenderness. No Meningismus. Chest/axilla: Normal chest wall appearance and motion. Nontender with no deformity. No lesions are appreciated. Cardiovascular: Regular rate and rhythm with a normal S1 and S2. No gallops, murmurs, or rubs. Normal PMI, no JVD. No pulse deficits. Respiratory: Lungs have equal breath sounds bilaterally, clear to auscultation and percussion. No rales, rhonchi or wheezes noted. No increased work of breathing, no retractions or nasal flaring. Abdomen/GI: Soft, non-tender, with normal bowel sounds. No distension or tympany. No guarding or rebound. No evidence of tenderness throughout. Back: No spinal tenderness. No costovertebral tenderness. Full range of motion. Skin: Warm, dry with normal turgor. Normal color with no rashes, no lesions, and no evidence of cellulitis. MS/ Extremity: Pulses equal, no cyanosis. Neurovascular intact. Full, normal range of motion. Neuro: Awake and alert, GCS 15, oriented to person, place, time, and situation. Cranial nerves II-XII grossly intact. Motor strength 5/5 in all extremities. Sensory grossly intact. Cerebellar exam normal. Normal gait. Psych: Awake, alert, with orientation to person, place and time. Behavior, mood, and affect are within normal limits. 16:01 Neck: ROM/movement: is normal, is supple, without pain, no range of motions limitations, no meningismus, no nuchal rigidity, negative Brudzinski's sign, negative Kernig's sign, no acute changes, Lymph nodes: no appreciated lymphadenopathy. Vital Signs: 14:42 BP 126 / 95; Pulse 97; Resp 16; Temp 98.6; Pulse Ox 100% ; Weight 68.04 kg; Height 5 ll1 ft. 3 in. ; Pain 6/10; 17:54 BP 118 / 82; Pulse 88; Resp 16; Pulse Ox 99% ; ko1 14:42 Body Mass Index 26.57 (68.04 kg, 160.02 cm) ll1 14:42 Pain Scale: Adult ll1 MDM: 14:13 Patient medically screened. [facility] 03/11 14:16 Order name: CBC with Diff [facility] 03/11 14:16 Order name: Comprehensive Metabolic Panel; Complete Time: 17:35 [facility] 03/11 14:16 Order name: Urinalysis w/ reflexes; Complete Time: 15:59 [facility] 03/11 14:16 Order name: PREGU; Complete Time: 16:49 [facility] 03/11 14:16 Order name: CT Head Brain wo Cont; Complete Time: 15:59 [facility] 03/11 14:16 Order name: Oxygen: 2 LILERS; Complete Time: 16:09 [facility] Administered Medications: 16:00 CANCELLED (Duplicate Order): metoCLOPramide IVP 10 mg IVP once; over 1 to 2 minutes [facility] 16:00 CANCELLED (Duplicate Order): Ketorolac IVP 30 mg IVP once peg 16:24 Drug: NS 0.9% IV 1000 ml Route: IV; Rate: 1 bolus; Site: left forearm; ko1 16:24 Drug: Ondansetron IVP 4 mg Route: IVP; Site: left forearm; ko1 16:31 Drug: diphenhydrAMINE IVP 50 mg Route: IVP; Site: left forearm; ko1 16:31 Drug: HYDROmorphone IVP 1 mg Route: IVP; Site: left forearm; ko1 Disposition Summary: 03/11/23 17:52 Discharge Ordered Location: Home peg Problem: new peg Symptoms: have improved peg Condition: Stable peg Diagnosis - Headache peg Followup: peg - With: Private Physician - When: 2 - 3 days - Reason: Recheck today's complaints, Continuance of care, Re-evaluation by your physician Followup: peg - With: - When: 2 - 3 days - Reason: Recheck today's complaints, Re-evaluation by your physician Discharge Instructions: - Discharge Summary Sheet peg - General Headache Without Cause peg - General Headache Without Cause, [id number] Forms: - Medication Reconciliation Form [facility] - Thank You Letter [facility] - Antibiotic Education peg - Prescription Opioid Use [facility] - [email or web address] [facility] Prescriptions: - Fioricet with Codeine 99-828-15-30 mg Oral capsule - take 2 capsule by ORAL route every 4 hours as needed for pain; do not exceed 6 peg caps per day; 15 capsule; Refills: 0, Product Selection Permitted - Zofran 4 mg Oral Tablet - take 1 tablet by ORAL route every 12 hours As needed; 20 tablet; Refills: 0, peg Product Selection Permitted Signatures: Dispatcher [employer] Aj Cabral MD MD cha Lewis, Lynsay RN RN ll1 Jess Magaña RN RN ko1 Corrections: (The following items were deleted from the chart) 14:45 14:44 Social history: Smoking status: Patient denies any tobacco usage or history of. ll1 ll1 16:00 14:16 metoCLOPramide IVP 10 mg IVP once; over 1 to 2 minutes ordered. [facility] 16:00 14:16 Ketorolac IVP 30 mg IVP once ordered. [facility] 17:56 16:24 Head Angio+CT.RAD.BRZ ordered. EDMS EDMS 17:56 16:24 Neck Angio+CT.RAD.BRZ ordered. EDMS EDMS
[2023-03-11 18:19] VITALS: TEMP 98.6
[2023-03-11 18:38] VITALS: BP 118/82; O2SAT 99
[2023-03-11 22:05] LABS: Blood Morphology Comment NOT SEEN (NOT SEEN); Platelet Estimate ADEQ; White Blood Cell Scan OK (OK)
== END 2023-03-11 18:05 | disposition home or self-care (01) ==
LOC: ER 14:01
DX: R51.9 Headache, unspecified (principal); F17.210 Nicotine dependence, cigarettes, uncomplicated; Z88.0 Allergy status to penicillin; Z88.1 Allergy status to other antibiotic agents; Z88.5 Allergy status to narcotic agent; Z88.8 Allergy status to other drugs, medicaments and biological substances; Z91.040 Latex allergy status; Z91.048 Other nonmedicinal substance allergy status
CPT/HCPCS: 85025; 36415; 81025; 81003; 80053; 70450; 96375; 96374; 99284; J1200; J1170; J2405; J7030; J2765

== ENCOUNTER 2023-07-02 18:10 | Emergency (ER) | payer OTHER ==
--- OUTSIDE RECORDS SUMMARY | 2023-07-02 18:32 | XMS REPORT | Continuity of Care Document ---
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 for 5 days. dexamethaso 2022-09 No [id number] 10mg U nivers ne sod phos 0-24 10-24 ity of PF 19:45: 19:05 [place] injection 00 :00 Medical 10 mg Branch dexamethaso 2022-09- No [id number] 10mg 10 mg, Univers ne sod phos 0-24 10-24 Intramuscu i ty of PF 19:45: 19:05 lar, ONCE, [place] injection 00 :00 1 dose, On Medi shanice 10 mg e Branch 06/29/23 at 1445, 1 mL dexamethaso 2022-09- No [id number] 10mg U nivers ne sod phos 0-24 10-24 ity of PF 19:45: 19:05 [place] injection 00 :00 Medical 10 mg Branch dexamethaso 2022-09- No [id number] 10mg 10 mg, Univers ne sod phos 0-24 10-24 Intramuscu i ty of PF :45: 19:05 lar, ONCE, [place] injection 00 :00 1 dose, On Medi shanice 10 mg e Branch 06/29/23 at 1445, 1 mL bromphenira 2022-09 Yes [id number] 5mL Take 5 mL Univers mine-pseudo 0-24 by mouth 3 it y of ephedrine-D 00:00: (three) [place] M (BROMFED 00 times Medical DM) 2-30-10 daily as Bran ch mg/5 mL needed for syrup Cough. bromphenira 2022-09 Yes [id number] 5mL Take 5 mL Univers mine-pseudo 0-24 by mouth 3 it y of ephedrine-D 00:00: (three) [place] M (BROMFED 00 times Medical DM) 2-30-10 daily as Bran ch mg/5 mL needed for syrup Cough. bromphenira 2022-09 Yes [id number] 5mL Take 5 mL Univers mine-pseudo 0-24 by mouth 3 it y of ephedrine-D 00:00: (three) [place] as M (BROMFED 00 times Medical DM) 2-30-10 daily as Bran ch mg/5 mL needed for syrup Cough. bromphenira 2022-09 Yes [id number] 5mL Take 5 mL Univers mine-pseudo 0-24 by mouth 3 it y of ephedrine-D 00:00: (three) [facility]ay as M (BROMFED 00 times Medical DM) 2-30-10 daily as Bran ch mg/5 mL needed for syrup Cough. azithromyci 2022-09- Yes [id number] Take 2 Univers n 250 mg 0-24 10-29 tablets by ity of tablet 00:00: 04:59 mouth [place] 00 :00 daily for Medical 1 day, Branch THEN 1 tablet daily for 4 days. azithromyci 2022-09- Yes [id number] Take 2 Univers n 250 mg 0-24 10-29 tablets by ity of tablet 00:00: 04:59 mouth [place] 00 :00 daily for Medical 1 day, Branch THEN 1 tablet daily for 4 days. azithromyci 2022-09- Yes [id number] Take 2 Univers n 250 mg 0-24 10-29 tablets by ity of tablet 00:00: 04:59 mouth [place] 00 :00 daily for Medical 1 day, Branch THEN 1 tablet daily for 4 days. azithromyci 2022-09- Yes [id number] Take 2 Univers n 250 mg 0-24 10-29 tablets by ity of tablet 00:00: 04:59 mouth [place] 00 :00 daily for Medical 1 day, Branch THEN 1 tablet daily for 4 days. gabapentin 2022-09- No gabapentin Univers 300 mg 0-05 10-05 300 mg ity of capsule 11:06: 00:00 capsule 23 : [facility] Branch gabapentin 2022-09- No gabapentin Univers 300 mg 0-05 10-05 300 mg ity of capsule 11:06: 00:00 capsule 23 : [facility] Branch adalimumab 2022-09 Yes 40mg inject 1 Uni vers (HUMIRA) 40 0-05 Syringe ity o f mg/0.8 mL 10:54: under the [place] as injection 07 skin. Medical Branch ibuprofen 2022-09 Yes ibuprofen Uni vers 800 mg 0-05 800 mg ity of tablet 10:54: tablet [address] [place] [address] levETIRAcet 2022-09 Yes TWICE Unive rs am 500 mg 0-05 DAILY. ity of tablet 10:54: [address] [place] [address] famotidine 2022-09 Yes famotidine U nivers 20 mg 0-05 20 mg ity of tablet 10:54: tablet [address] [place] [address] clonazePAM 2022-09 Yes clonazepam U nivers 0.5 mg 0-05 0.5 mg ity of tablet 10:54: tablet [place] [address] TAKE 1 Medical TABLET BY Branch MOUTH EVERY DAY AT BEDTIME NEEDED FOR SEVERE ANXIETY/PA STACEY ATTACK buprenorphi 2022-09 Yes [place] Uni vers ne HCL 0-05 750 mcg ity of (BELBUCA) 10:54: buccal [place] [address] Medica l Film 1 FILM BY Branch BUCCAL ROUTE TWICE A DAY buprenorphi 2022-09 Yes Butrans 10 Univers ne 0-05 mcg/hour ity of (BUTRANS) 10:54: transderma [place] 10 mcg/hour 07 l patch Medic al patch APPLY 1 Branch PATCH BY TRANSDERMA L ROUTE EVERY WEEK FOR 28 DAYS albuterol 2022-09 Yes albuterol Uni vers 90 0-05 sulfate ity of mcg/actuati 10:54: HFA 90 [place] inhaler 07 mcg/actuat Med ical ion Branch aerosol inhaler adalimumab 2022-09 Yes 40mg inject 1 Uni vers (HUMIRA) 40 0-05 Syringe ity o f mg/0.8 mL 10:54: under the [place] injection 07 skin. Medical Branch ibuprofen 2022-09 Yes ibuprofen Uni vers 800 mg 0-05 800 mg ity of tablet 10:54: tablet [address] [place] [address] levETIRAcet 2022-09 Yes TWICE Unive rs am 500 mg 0-05 DAILY. ity of tablet 10:54: [address] [place] [address] famotidine 2022-09 Yes famotidine U nivers 20 mg 0-05 20 mg ity of tablet 10:54: tablet [address] [place] [address] clonazePAM 2022-09 Yes clonazepam U nivers 0.5 mg 0-05 0.5 mg ity of tablet 10:54: tablet TAKE 1 Medical TABLET BY Branch MOUTH EVERY DAY AT BEDTIME NEEDED FOR SEVERE ANXIETY/PA STACEY ATTACK buprenorphi 2022-09 Yes [place] Uni vers ne HCL 0-05 750 mcg ity of (BELBUCA) 10:54: buccal [place] [address] Medica l Film 1 FILM BY Branch BUCCAL ROUTE TWICE A DAY buprenorphi 2022-09 Yes Butrans 10 Univers ne 0-05 mcg/hour ity of (BUTRANS) 10:54: transderma [place] 10 mcg/hour 07 l patch Medic al patch APPLY 1 Branch PATCH BY TRANSDERMA L ROUTE EVERY WEEK FOR 28 DAYS albuterol 2022-09 Yes albuterol Uni vers 90 0-05 sulfate ity of mcg/actuati 10:54: HFA 90 [place] inhaler 07 mcg/actuat Med ical ion Branch aerosol inhaler adalimumab 2022-09 Yes 40mg inject 1 Uni vers (HUMIRA) 40 0-05 Syringe ity o f mg/0.8 mL 10:54: under the [place] injection 07 skin. Medical Branch ibuprofen 2022-09 Yes ibuprofen Uni vers 800 mg 0-05 800 mg ity of tablet 10:54: tablet [address] levETIRAcet 2022-09 Yes TWICE Unive rs am 500 mg 0-05 DAILY. ity of tablet 10:54: [address] [place] [address] famotidine 2022-09 Yes famotidine U nivers 20 mg 0-05 20 mg ity of tablet 10:54: tablet [address] clonazePAM 2022-09 Yes clonazepam U nivers 0.5 mg 0-05 0.5 mg ity of tablet 10:54: tablet TAKE 1 Medical TABLET BY Branch MOUTH EVERY DAY AT BEDTIME NEEDED FOR SEVERE ANXIETY/PA STACEY ATTACK buprenorphi 2022-09 Yes [place] Uni vers ne HCL 0-05 750 mcg ity of (BELBUCA) 10:54: buccal [place] [address] Medica l Film 1 FILM BY Branch BUCCAL ROUTE TWICE A DAY buprenorphi 2022-09 Yes Butrans 10 Univers ne 0-05 mcg/hour ity of (BUTRANS) 10:54: transderma [place] 10 mcg/hour 07 l patch Medic al patch APPLY 1 Branch PATCH BY TRANSDERMA L ROUTE EVERY WEEK FOR 28 DAYS albuterol 2022-09 Yes albuterol Uni vers 90 0-05 sulfate ity of mcg/actuati 10:54: HFA 90 [place] inhaler 07 mcg/actuat Med ical ion Branch aerosol inhaler adalimumab 2022-09 Yes 40mg inject 1 Uni vers (HUMIRA) 40 0-05 Syringe ity o f mg/0.8 mL 10:54: under the [place] injection 07 skin. Medical Branch ibuprofen 2022-09 Yes ibuprofen Uni vers 800 mg 0-05 800 mg ity of tablet 10:54: tablet [address] [place] [address] levETIRAcet 2022-09 Yes TWICE Unive rs am 500 mg 0-05 DAILY. ity of tablet 10:54: [address] [place] [address] famotidine 2022-09 Yes famotidine U nivers 20 mg 0-05 20 mg ity of tablet 10:54: tablet [address] clonazePAM 2022-09 Yes clonazepam U nivers 0.5 mg 0-05 0.5 mg ity of tablet 10:54: tablet TAKE 1 Medical TABLET BY Branch MOUTH EVERY DAY AT BEDTIME NEEDED FOR SEVERE ANXIETY/PA STACEY ATTACK buprenorphi 2022-09 Yes [place] Uni vers ne HCL 0-05 750 mcg ity of (BELBUCA) 10:54: buccal [place] [address] Medica l Film 1 FILM BY Branch BUCCAL ROUTE TWICE A DAY buprenorphi 2022-09 Yes Butrans 10 Univers ne 0-05 mcg/hour ity of (BUTRANS) 10:54: transderma [place] 10 mcg/hour 07 l patch Medic al patch APPLY 1 Branch PATCH BY TRANSDERMA L ROUTE EVERY WEEK FOR 28 DAYS albuterol 2022-09 Yes albuterol Uni vers 90 0-05 sulfate ity of mcg/actuati 10:54: HFA 90 [place] inhaler 07 mcg/actuat Med ical ion Branch aerosol inhaler adalimumab 2022-09 Yes 40mg inject 1 Uni vers (HUMIRA) 40 0-05 Syringe ity o f mg/0.8 mL 10:54: under the [place] injection 07 skin. Medical Branch ibuprofen 2022-09 Yes ibuprofen Uni vers 800 mg 0-05 800 mg ity of tablet 10:54: tablet [address] levETIRAcet 2022-09 Yes TWICE Unive rs am 500 mg 0-05 DAILY. ity of tablet 10:54: [address] [place] [address] famotidine 2022-09 Yes famotidine U nivers 20 mg 0-05 20 mg ity of tablet 10:54: tablet [address] [place] [address] clonazePAM 2022-09 Yes clonazepam U nivers 0.5 mg 0-05 0.5 mg ity of tablet 10:54: tablet [place] [address] TAKE 1 Medical TABLET BY Branch MOUTH EVERY DAY AT BEDTIME NEEDED FOR SEVERE ANXIETY/PA STACEY ATTACK buprenorphi 2022-09 Yes [place] Uni vers ne HCL 0-05 750 mcg ity of (BELBUCA) 10:54: buccal [place] [address] Medica l Film 1 FILM BY Branch BUCCAL ROUTE TWICE A DAY buprenorphi 2022-09 Yes Butrans 10 Univers ne 0-05 mcg/hour ity of (BUTRANS) 10:54: transderma [place] 10 mcg/hour 07 l patch Medic al patch APPLY 1 Branch PATCH BY TRANSDERMA L ROUTE EVERY WEEK FOR 28 DAYS albuterol 2022-09 Yes albuterol Uni vers 90 0-05 sulfate ity of mcg/actuati 10:54: HFA 90 [place] inhaler 07 mcg/actuat Med ical ion Branch aerosol inhaler adalimumab 2022-09 Yes 40mg inject 1 Uni vers (HUMIRA) 40 0-05 Syringe ity o f mg/0.8 mL 10:54: under the [place] injection 07 skin. Medical Branch ibuprofen 2022-09 Yes ibuprofen Uni vers 800 mg 0-05 800 mg ity of tablet 10:54: tablet [address] levETIRAcet 2022-09 Yes TWICE Unive rs am 500 mg 0-05 DAILY. ity of tablet 10:54: [address] [place] [address] famotidine 2022-09 Yes famotidine U nivers 20 mg 0-05 20 mg ity of tablet 10:54: tablet [address] [place] [address] clonazePAM 2022-09 Yes clonazepam U nivers 0.5 mg 0-05 0.5 mg ity of tablet 10:54: tablet [place] [address] TAKE 1 Medical TABLET BY Branch MOUTH EVERY DAY AT BEDTIME NEEDED FOR SEVERE ANXIETY/PA STACEY ATTACK buprenorphi 2022-09 Yes [place] Uni vers ne HCL 0-05 750 mcg ity of (BELBUCA) 10:54: buccal [place] [address] Medica l Film 1 FILM BY Branch BUCCAL ROUTE TWICE A DAY buprenorphi 2022-09 Yes Butrans 10 Univers ne 0-05 mcg/hour ity of (BUTRANS) 10:54: transderma [place] 10 mcg/hour 07 l patch Medic al patch APPLY 1 Branch PATCH BY TRANSDERMA L ROUTE EVERY WEEK FOR 28 DAYS albuterol 2022-09 Yes albuterol Uni vers 90 0-05 sulfate ity of mcg/actuati 10:54: HFA 90 [place] inhaler 07 mcg/actuat Med ical ion Branch aerosol inhaler adalimumab 2022-09 Yes 40mg inject 1 Uni vers (HUMIRA) 40 0-05 Syringe ity o f mg/0.8 mL 10:54: under the [place] injection 07 skin. Medical Branch ibuprofen 2022-09 Yes ibuprofen Uni vers 800 mg 0-05 800 mg ity of tablet 10:54: tablet [address] [place] [address] levETIRAcet 2022-09 Yes TWICE Unive rs am 500 mg 0-05 DAILY. ity of tablet 10:54: [address] [place] [address] famotidine 2022-09 Yes famotidine U nivers 20 mg 0-05 20 mg ity of tablet 10:54: tablet [address] clonazePAM 2022-09 Yes clonazepam U nivers 0.5 mg 0-05 0.5 mg ity of tablet 10:54: tablet [place] [address] TAKE 1 Medical TABLET BY Branch MOUTH EVERY DAY AT BEDTIME NEEDED FOR SEVERE ANXIETY/PA STACEY ATTACK buprenorphi 2023-1 Yes [place] Uni vers ne HCL 0-05 750 mcg ity of (BELBUCA) 10:54: buccal [place] [address] Medica l Film 1 FILM BY Branch BUCCAL ROUTE TWICE A DAY buprenorphi 2022-09 Yes Butrans 10 Univers ne 0-05 mcg/hour ity of (BUTRANS) 10:54: transderma [place] 10 mcg/hour 07 l patch Medic al patch APPLY 1 Branch PATCH BY TRANSDERMA L ROUTE EVERY WEEK FOR 28 DAYS albuterol 2022-09 Yes albuterol Uni vers 90 0-05 sulfate ity of mcg/actuati 10:54: HFA 90 [place] inhaler 07 mcg/actuat Med ical ion Branch aerosol inhaler azithromyci Yes [id number] Take two Univers n 03-02 [id number] on first ity of (ZITHROMAX 00:00: day, take [place] Z-OK) 250 00 one a day Medi shanice mg tablet afterwards Bran ch azelastine Yes [id number] 1{spray Use 1 Univers 137 mcg 03-02 [id number] } [place] in ity of (0.1 %) 00:00: each [place] nasal spray 00 nostril in Hi dical the Branch morning and 1 [place] in the evening. Use in each nostril as directed azithromyci Yes [id number] Take two Univers n 03-02 [id number] on first ity of (ZITHROMAX 00:00: day, take [place] Z-OK) 250 00 one a day Medi shanice mg tablet afterwards Bran ch azelastine 0 Yes [id number] 1{spray Use 1 Univers 137 mcg 03-02 [id number] } [place] in ity of (0.1 %) 00:00: each [place] nasal spray 00 nostril in Hi dical the Branch morning and 1 [place] in the evening. Use in each nostril as directed azithromyci 0 Yes [id number] Take two Univers n [id number] on first ity of (ZITHROMAX 00:00: day, take [place] Z-OK) 250 00 one a day Medi shanice mg tablet afterwards Bran ch azelastine 0 Yes [id number] 1{spray Use 1 Univers 137 mcg 6-27 [id number] } [place] in ity of (0.1 %) 00:00: each [place] nasal spray 00 nostril in Hi dical the Branch morning and 1 [place] in the evening. Use in each nostril as directed azithromyci 2023-0 Yes [id number] Take two Univers n 6-27 [id number] on first ity of (ZITHROMAX 00:00: day, take [place] Z-OK) 250 00 one a day Medi shanice mg tablet afterwards Bran ch azelastine 2023-0 Yes [id number] 1{spray Use 1 Univers 137 mcg 6-27 [id number] } [place] in ity of (0.1 %) 00:00: each [place] nasal spray 00 nostril in [facility] the Branch morning and 1 [place] in the evening. Use in each nostril as directed azithromyci 2023-0 Yes [id number] Take two Univers n [id number] on first ity of (ZITHROMAX 00:00: day, take [place] Z-OK) 250 00 one a day Medi shanice mg tablet afterwards Bran ch azelastine 2023-0 Yes [id number] 1{spray Use 1 Univers 137 mcg 6-27 [id number] } [place] in ity of (0.1 %) 00:00: each [place] nasal spray 00 nostril in [facility] the Branch morning and 1 [place] in the evening. Use in each nostril as directed azithromyci 3-0 Yes [id number] Take two Univers n 6-27 [id number] on first ity of (ZITHROMAX 00:00: day, take [place] Z-OK) 250 00 one a day Medi shanice mg tablet afterwards Bran ch azelastine 2023-0 Yes [id number] 1{spray Use 1 Univers 137 mcg 6-27 [id number] } [place] in ity of (0.1 %) 00:00: each [place] nasal spray 00 nostril in [facility] the Branch morning and 1 [place] in the evening. Use in each nostril as directed azithromyci 2023-0 Yes [id number] Take two Univers n 6-27 [id number] on first ity of (ZITHROMAX 00:00: day, take [place] Z-OK) 250 00 one a day Medi shanice mg tablet afterwards Bran ch azelastine 2023-0 Yes [id number] 1{spray Use 1 Univers 137 mcg 6-27 [id number] } [place] in ity of (0.1 %) 00:00: each [place] nasal spray 00 nostril in Hi dical the Branch morning and 1 [place] in the evening. Use in each nostril as directed azithromyci 2023-0 Yes [id number] Take two Univers n 6-27 [id number] on first ity of (ZITHROMAX 00:00: day, take [place] Z-OK) 250 00 one a day Medi shanice mg tablet afterwards Bran ch azelastine 2023-0 Yes [id number] 1{spray Use 1 Univers 137 mcg 6-27 [id number] } [place] in ity of (0.1 %) 00:00: each [place] nasal spray 00 nostril in [facility] the Branch morning and 1 [place] in the evening. Use in each nostril as directed azithromyci 2023-0 Yes [id number] Take two Univers n 6-27 [id number] on first ity of (ZITHROMAX 00:00: day, take [place] Z-OK) 250 00 one a day Medi shanice mg tablet afterwards Bran ch azelastine 2023-0 Yes [id number] 1{spray Use 1 Univers 137 mcg 6-27 [id number] } [place] in ity of (0.1 %) 00:00: each [place] nasal spray 00 nostril in [facility] the Branch morning and 1 [place] in the evening. Use in each nostril as directed azithromyci 2023-0 Yes [id number] Take two Univers n 6-27 [id number] on first ity of (ZITHROMAX 00:00: day, take [place] Z-OK) 250 00 one a day Medi shanice mg tablet afterwards Bran ch azelastine 2023-0 Yes [id number] 1{spray Use 1 Univers 137 mcg 6-27 [id number] } [place] in ity of (0.1 %) 00:00: each [place] nasal spray 00 nostril in [facility] the Branch morning and 1 [place] in the evening. Use in each nostril as directed azelastine 2023-0 Yes [id number] 1{spray Use 1 Univers 137 mcg 6-27 [id number] } [place] in ity of (0.1 %) 00:00: each [place] nasal spray 00 nostril in Me dical the Branch morning and 1 [place] in the evening. Use in each nostril as directed azelastine 2023-0 Yes [id number] 1{spray Use 1 Univers 137 mcg 6-27 [id number] } [place] in ity of (0.1 %) 00:00: each [place] nasal spray 00 nostril in Me dical the Branch morning and 1 [place] in the evening. Use in each nostril as directed azelastine 2023-0 Yes [id number] 1{spray Use 1 Univers 137 mcg 6-27 [id number] } [place] in ity of (0.1 %) 00:00: each [place] nasal spray 00 nostril in Me dical the Branch morning and 1 [place] in the evening. Use in each nostril as directed azelastine 2023-0 Yes [id number] 1{spray Use 1 Univers 137 mcg 6-27 [id number] } [place] in ity of (0.1 %) 00:00: each [place] nasal spray 00 nostril in Hi dical the Branch morning and 1 [place] in the evening. Use in each nostril as directed azelastine 2023-0 Yes [id number] 1{spray Use 1 Univers 137 mcg 6-27 [id number] } [place] in ity of (0.1 %) 00:00: each [place] nasal spray 00 nostril in Me dical the Branch morning and 1 [place] in the evening. Use in each nostril as directed azelastine 2023-0 Yes [id number] 1{spray Use 1 Univers 137 mcg 6-27 [id number] } [place] in ity of (0.1 %) 00:00: each [place] nasal spray 00 nostril in Me dical the Branch morning and 1 [place] in the evening. Use in each nostril as directed azelastine 2023-0 Yes [id number] 1{spray Use 1 Univers 137 mcg 6-27 [id number] } [place] in ity of (0.1 %) 00:00: each [place] nasal spray 00 nostril in Me dical the Branch morning and 1 [place] in the evening. Use in each nostril as directed azithromyci 2023-0 2023- No [id number] Take two Univers n 6-27 10-05 [id number] on first ity of (ZITHROMAX 00:00: 00:00 day, take [place] Z-OK) 250 00 :00 one a day Medi shanice mg tablet afterwards Bran ch azithromyci 2022- No [id number] Take two Univers n 6-27 06-10 [id number] on first ity of (ZITHROMAX 00:00: 00:00 day, take [place] Z-OK) 250 00 :00 one a day Medi shanice mg tablet afterwards Bran ch morpHINE (4 2022- No 4mg 4 mg, Slow Univers mg/mL) 01-21 IV Push, ity of injection 4 23:45: 23:08 ONCE, 1 [place] mg 00 :00 dose, On Medical [facility] Branch 01/21/23 at 1845, Routine ondansetron 2022- No 4mg 4 mg, Slow Univers (ZOFRAN 01-21 IV Push, ity of (PF)) 23:00: 23:08 ONCE, 1 [place] injection 4 00 :00 dose, On Medi shanice mg [facility] Branch 01/21/23 at 1800, LUPE NaCl 0.9% 2022- No 1000mL at 999 Uni vers (NS) IV 01-21 mL/hr, ity of infusion 21:30: 23:45 Intravenou [place] 1,000 mL 00 :00 s, ONCE, 1 Medic al dose, On Branch [facility] 01/21/23 at 1630, Routine FENTanyl PF 2022- No 50ug 50 mcg, Un travis (SUBLIMAZE 01-21 Slow IV ity o f (PF)) 21:15: 20:56 Push, [place] injection 00 :00 ONCE, 1 Medical 50 mcg dose, On Branch [facility] 01/21/23 at 1615, Routine iopamidol 2022- No [id number] 50mL 50 mL, Univers (ISOVUE 01-21 Intravenou ity o f 370-500 mL) 21:00: 21:02 s, ONCE, 1 [place] injection 00 :00 dose, On Medica l 50 mL [facility] Branch 01/21/23 at 1600, Routine ondansetron 2022- No 4mg 4 mg, Slow Univers (ZOFRAN 01-21 IV Push, ity of (PF)) 20:30: 20:55 ONCE, 1 [place] injection 4 00 :00 dose, On Medi shanice mg [facility] Branch 01/21/23 at 1530, LUPE sucralfate 2022-2022- No [id number] 1g Take 1 Univers 1 gram 01-21 [...] dose, On Wed01/15/23 at 1000, STAT famotidine No 20mg 20 mg, Univ ers (PEPCID 01-15 Slow IV ity of (PF)) 14:45: 14:48 Push, [place] injection 00 :00 ONCE, 1 Medical 20 [...] tablet 46 :00 Medical Branch maalox:diph 2022-0 2023- No 15mL 15 mL, Uni vers enhydrAMINE 5-12 05-12 Oral, ity of :lidocaine 11:00: 10:58 ONCE, 1 [place] 2 % viscous 00 :00 dose, On Medi shanice 1:1:1 Fri Branch ([facility] 01/15/[address] [facility]) 0600, oral Routine suspension 15 mL maalox:diph 2022-0 Yes [id number] 15mL Take 15 mL Univers enhydrAMINE 5-12 by mouth ity of :lidocaine 00:00: as needed [place] 2 % viscous 00 for Oral Medi shanice 1:1:1 mucositis Branch (EPIGASTRI C PAIN). ondansetron 2022-0 Yes [id number] 4mg Take 1 Univers (ZOFRAN) 4 5-12 tablet by ity of mg tablet 00:00: mouth [place] 00 every 8 Medical (eight) Branch hours as needed for Nausea and Vomiting (N/V). maalox:diph 2022-0 Yes [id number] 15mL Take 15 mL Univers enhydrAMINE 5-12 by mouth ity of :lidocaine 00:00: as needed [place] 2 % viscous 00 for Oral Medi shanice 1:1:1 mucositis Branch (EPIGASTRI C PAIN). ondansetron 2022-0 Yes [id number] 4mg Take 1 Univers (ZOFRAN) 4 5-12 tablet by ity of mg tablet 00:00: mouth [place] 00 every 8 Medical (eight) Branch hours as needed for Nausea and Vomiting (N/V). proMETHazin 2022-0 Yes [id number] 25mg Take 1 Univers e 25 mg 5-12 tablet by ity of tablet 00:00: mouth [place] 00 every 6 Medical (six) Branch hours as needed for Nausea and Vomiting (N/V). sucralfate 2022-0 Yes [id number] 1g Take 1 U nivers 1 gram 5-12 tablet by ity of tablet 00:00: mouth [place] 00 before Medical meals and Branch at bedtime. esomeprazol 2022-0 Yes [id number] 40mg Take 1 Univers e (NEXIUM) 5-12 capsule by ity of 40 mg 00:00: mouth [place] capsule 00 daily with Medica l breakfast. Branch maalox:diph 2022-0 Yes [id number] 15mL Take 15 mL Univers enhydrAMINE 5-12 by mouth ity of :lidocaine 00:00: as needed [place] 2 % viscous 00 for Oral Medi shanice 1:1:1 mucositis Branch (EPIGASTRI C PAIN). ondansetron 2022-0 Yes [id number] 4mg Take 1 Univers (ZOFRAN) 4 5-12 tablet by ity of mg tablet 00:00: mouth [place] 00 every 8 Medical (eight) Branch hours as needed for Nausea and Vomiting (N/V). proMETHazin 2022-0 Yes [id number] 25mg Take 1 Univers e 25 mg 5-12 tablet by ity of tablet 00:00: mouth [place] 00 every 6 Medical (six) Branch hours as needed for Nausea and Vomiting (N/V). sucralfate 2022-0 Yes [id number] 1g Take 1 U nivers 1 gram 5-12 tablet by ity of tablet 00:00: mouth [place] 00 before Medical meals and Branch at bedtime. esomeprazol 2022-0 Yes [id number] 40mg Take 1 Univers e (NEXIUM) 5-12 capsule by ity of 40 mg 00:00: mouth [place] capsule 00 daily with Medica l breakfast. Branch maalox:diph 2022-0 Yes [id number] 15mL Take 15 mL Univers enhydrAMINE 5-12 by mouth ity of :lidocaine 00:00: as needed [place] 2 % viscous 00 for Oral Medi shanice 1:1:1 mucositis Branch (EPIGASTRI C PAIN). proMETHazin 2022-0 Yes [id number] 25mg Take 1 Univers e 25 mg 5-12 tablet by ity of tablet 00:00: mouth [place] 00 every 6 Medical (six) Branch hours as needed for Nausea and Vomiting (N/V). sucralfate 2022-0 Yes [id number] 1g Take 1 U nivers 1 gram 5-12 tablet by ity of tablet 00:00: mouth [place] 00 before Medical meals and Branch at bedtime. esomeprazol 3-0 Yes [id number] 40mg Take 1 Univers e (NEXIUM) 5-12 capsule by ity of 40 mg 00:00: mouth [place] capsule 00 daily with Medica l breakfast. Branch maalox:diph 2022-0 Yes [id number] 15mL Take 15 mL Univers enhydrAMINE 5-12 by mouth ity of :lidocaine 00:00: as needed [place] 2 % viscous 00 for Oral Medi shanice 1:1:1 mucositis Branch (EPIGASTRI C PAIN). proMETHazin 2022-0 Yes [id number] 25mg Take 1 Univers e 25 mg 5-12 tablet by ity of tablet 00:00: mouth [place] 00 every 6 Medical (six) Branch hours as needed for Nausea and Vomiting (N/V). sucralfate 3-0 Yes [id number] 1g Take 1 U nivers 1 gram 5-12 tablet by ity of tablet 00:00: mouth [place] 00 before Medical meals and Branch at bedtime. esomeprazol 2022-0 Yes [id number] 40mg Take 1 [facility] e (NEXIUM) 5-12 capsule by ity of 40 mg 00:00: mouth [place] capsule 00 daily with Medica l breakfast. Branch maalox:diph 2022-0 Yes [id number] 15mL Take 15 mL [facility] enhydrAMINE 5-12 by mouth ity of :lidocaine 00:00: as needed [place] 2 % viscous 00 for Oral Medi shanice 1:1:1 mucositis Branch (EPIGASTRI C PAIN). proMETHazin 2022-0 Yes [id number] 25mg Take 1 [facility] e 25 mg 5-12 tablet by ity of tablet 00:00: mouth [place] 00 every 6 Medical (six) Branch hours as needed for Nausea and Vomiting (N/V). sucralfate 3-0 Yes [id number] 1g Take 1 U nivers 1 gram 5-12 tablet by ity of tablet 00:00: mouth [place] 00 before Medical meals and Branch at bedtime. esomeprazol 2023-0 Yes [id number] 40mg Take 1 [facility] e (NEXIUM) 5-12 capsule by ity of 40 mg 00:00: mouth [place] capsule 00 daily with Medica l breakfast. Branch maalox:diph 3-0 Yes [id number] 15mL Take 15 mL [facility] enhydrAMINE 5-12 by mouth ity of :lidocaine 00:00: as needed [place] 2 % viscous 00 for Oral Medi shanice 1:1:1 mucositis Branch (EPIGASTRI C PAIN). proMETHazin 3-0 Yes [id number] 25mg Take 1 [facility] e 25 mg 5-12 tablet by ity of tablet 00:00: mouth [place] 00 every 6 Medical (six) Branch hours as needed for Nausea and Vomiting (N/V). sucralfate 2023-0 Yes [id number] 1g Take 1 U nivers 1 gram 5-12 tablet by ity of tablet 00:00: mouth [place] 00 before Medical meals and Branch at bedtime. esomeprazol 2023-0 Yes [id number] 40mg Take 1 [facility] e (NEXIUM) 5-12 capsule by ity of 40 mg 00:00: mouth [place] capsule 00 daily with Medica l breakfast. Branch maalox:diph 3-0 Yes [id number] 15mL Take 15 mL [facility] enhydrAMINE 5-12 by mouth ity of :lidocaine 00:00: as needed [place] 2 % viscous 00 for Oral Medi shanice 1:1:1 mucositis Branch (EPIGASTRI C PAIN). proMETHazin 3-0 Yes [id number] 25mg Take 1 [facility] e 25 mg 5-12 tablet by ity of tablet 00:00: mouth [place] 00 every 6 Medical (six) Branch hours as needed for Nausea and Vomiting (N/V). sucralfate 3-0 Yes [id number] 1g Take 1 U nivers 1 gram 5-12 tablet by ity of tablet 00:00: mouth [place] 00 before Medical meals and Branch at bedtime. esomeprazol 2023-0 Yes [id number] 40mg Take 1 [facility] e (NEXIUM) 5-12 capsule by ity of 40 mg 00:00: mouth [place] capsule 00 daily with Medica l breakfast. Branch maalox:diph 2023-0 Yes [id number] 15mL Take 15 mL [facility] enhydrAMINE 5-12 by mouth ity of :lidocaine 00:00: as needed [place] 2 % viscous 00 for Oral Medi shanice 1:1:1 mucositis Branch (EPIGASTRI C PAIN). proMETHazin 2023-0 Yes [id number] 25mg Take 1 [facility] e 25 mg 5-12 tablet by ity of tablet 00:00: mouth [place] 00 every 6 Medical (six) Branch hours as needed for Nausea and Vomiting (N/V). sucralfate 2023-0 Yes [id number] 1g Take 1 U nivers 1 gram 5-12 tablet by ity of tablet 00:00: mouth [place] 00 before Medical meals and Branch at bedtime. esomeprazol 2023-0 Yes [id number] 40mg Take 1 [facility] e (NEXIUM) 5-12 capsule by ity of 40 mg 00:00: mouth [place] capsule 00 daily with Medica l breakfast. Branch maalox:diph 2023-0 Yes [id number] 15mL Take 15 mL [facility] enhydrAMINE 5-12 by mouth ity of :lidocaine 00:00: as needed [place] 2 % viscous 00 for Oral Medi shanice 1:1:1 mucositis Branch (EPIGASTRI C PAIN). proMETHazin 3-0 Yes [id number] 25mg Take 1 [facility] e 25 mg 5-12 tablet by ity of tablet 00:00: mouth [place] 00 every 6 Medical (six) Branch hours as needed for Nausea and Vomiting (N/V). sucralfate 3-0 Yes [id number] 1g Take 1 U nivers 1 gram 5-12 tablet by ity of tablet 00:00: mouth [place] 00 before Medical meals and Branch at bedtime. esomeprazol 3-0 Yes [id number] 40mg Take 1 [facility] e (NEXIUM) 5-12 capsule by ity of 40 mg 00:00: mouth [place] capsule 00 daily with Medica l breakfast. Branch maalox:diph 3-0 Yes [id number] 15mL Take 15 mL [facility] enhydrAMINE 5-12 by mouth ity of :lidocaine 00:00: as needed [place] 2 % viscous 00 for Oral Medi shanice 1:1:1 mucositis Branch (EPIGASTRI C PAIN). proMETHazin 2023-0 Yes [id number] 25mg Take 1 [facility] e 25 mg 5-12 tablet by ity of tablet 00:00: mouth [place] 00 every 6 Medical (six) Branch hours as needed for Nausea and Vomiting (N/V). sucralfate 2023-0 Yes [id number] 1g Take 1 U nivers 1 gram 5-12 tablet by ity of tablet 00:00: mouth [place] 00 before Medical meals and Branch at bedtime. esomeprazol 2023-0 Yes [id number] 40mg Take 1 [facility] e (NEXIUM) 5-12 capsule by ity of 40 mg 00:00: mouth [place] capsule 00 daily with Medica l breakfast. Branch maalox:diph 2022-0 Yes [id number] 15mL Take 15 mL [facility] enhydrAMINE 5-12 by mouth ity of :lidocaine 00:00: as needed [place] 2 % viscous 00 for Oral Medi shanice 1:1:1 mucositis Branch (EPIGASTRI C PAIN). proMETHazin 3-0 Yes [id number] 25mg Take 1 [facility] e 25 mg 5-12 tablet by ity of tablet 00:00: mouth [place] 00 every 6 Medical (six) Branch hours as needed for Nausea and Vomiting (N/V). sucralfate 2023-0 Yes [id number] 1g Take 1 U nivers 1 gram 5-12 tablet by ity of tablet 00:00: mouth [place] 00 before Medical meals and Branch at bedtime. esomeprazol 2022-0 Yes [id number] 40mg Take 1 [facility] e (NEXIUM) 5-12 capsule by ity of 40 mg 00:00: mouth [place] capsule 00 daily with Medica l breakfast. Branch maalox:diph 2022-0 Yes [id number] 15mL Take 15 mL [facility] enhydrAMINE 5-12 by mouth ity of :lidocaine 00:00: as needed [place] 2 % viscous 00 for Oral Medi shanice 1:1:1 mucositis Branch (EPIGASTRI C PAIN). proMETHazin 3-0 Yes [id number] 25mg Take 1 [facility] e 25 mg 5-12 tablet by ity of tablet 00:00: mouth [place] 00 every 6 Medical (six) Branch hours as needed for Nausea and Vomiting (N/V). sucralfate 2023-0 Yes [id number] 1g Take 1 U nivers 1 gram 5-12 tablet by ity of tablet 00:00: mouth [place] 00 before Medical meals and Branch at bedtime. esomeprazol 2023-0 Yes [id number] 40mg Take 1 [facility] e (NEXIUM) 5-12 capsule by ity of 40 mg 00:00: mouth [place] capsule 00 daily with Medica l breakfast. Branch maalox:diph 2023-0 Yes [id number] 15mL Take 15 mL [facility] enhydrAMINE 5-12 by mouth ity of :lidocaine 00:00: as needed [place] 2 % viscous 00 for Oral Medi shanice 1:1:1 mucositis Branch (EPIGASTRI C PAIN). proMETHazin 2022-0 Yes [id number] 25mg Take 1 [facility] e 25 mg 5-12 tablet by ity of tablet 00:00: mouth [place] 00 every 6 Medical (six) Branch hours as needed for Nausea and Vomiting (N/V). sucralfate 2022-0 Yes [id number] 1g Take 1 U nivers 1 gram 5-12 tablet by ity of tablet 00:00: mouth [place] 00 before Medical meals and Branch at bedtime. esomeprazol 2022-0 Yes [id number] 40mg Take 1 [facility] e (NEXIUM) 5-12 capsule by ity of 40 mg 00:00: mouth [place] capsule 00 daily with Medica l breakfast. Branch maalox:diph 2022-0 Yes [id number] 15mL Take 15 mL [facility] enhydrAMINE 5-12 by mouth ity of :lidocaine 00:00: as needed [place] 2 % viscous 00 for Oral Medi shanice 1:1:1 mucositis Branch (EPIGASTRI C PAIN). proMETHazin 2022-0 Yes [id number] 25mg Take 1 [facility] e 25 mg 5-12 tablet by ity of tablet 00:00: mouth [place] 00 every 6 Medical (six) Branch hours as needed for Nausea and Vomiting (N/V). sucralfate 2022-0 Yes [id number] 1g Take 1 U nivers 1 gram 5-12 tablet by ity of tablet 00:00: mouth [place] 00 before Medical meals and Branch at bedtime. esomeprazol 2022-0 Yes [id number] 40mg Take 1 [facility] e (NEXIUM) 5-12 capsule by ity of 40 mg 00:00: mouth [place] capsule 00 daily with Medica l breakfast. Branch maalox:diph 3-0 Yes [id number] 15mL Take 15 mL [facility] enhydrAMINE 5-12 by mouth ity of :lidocaine 00:00: as needed [place] 2 % viscous 00 for Oral Medi shanice 1:1:1 mucositis Branch (EPIGASTRI C PAIN). proMETHazin 2023-0 Yes [id number] 25mg Take 1 [facility] e 25 mg 5-12 tablet by ity of tablet 00:00: mouth [place] 00 every 6 Medical (six) Branch hours as needed for Nausea and Vomiting (N/V). sucralfate 3-0 Yes [id number] 1g Take 1 U nivers 1 gram 5-12 tablet by ity of tablet 00:00: mouth [place] 00 before Medical meals and Branch at bedtime. esomeprazol 3-0 Yes [id number] 40mg Take 1 [facility] e (NEXIUM) 5-12 capsule by ity of 40 mg 00:00: mouth [place] capsule 00 daily with Medica l breakfast. Branch maalox:diph 3-0 Yes [id number] 15mL Take 15 mL [facility] enhydrAMINE 5-12 by mouth ity of :lidocaine 00:00: as needed [place] 2 % viscous 00 for Oral Medi shanice 1:1:1 mucositis Branch (EPIGASTRI C PAIN). proMETHazin 2022-0 Yes [id number] 25mg Take 1 [facility] e 25 mg 5-12 tablet by ity of tablet 00:00: mouth [place] 00 every 6 Medical (six) Branch hours as needed for Nausea and Vomiting (N/V). sucralfate 2022-0 Yes [id number] 1g Take 1 U nivers 1 gram 5-12 tablet by ity of tablet 00:00: mouth [place] 00 before Medical meals and Branch at bedtime. esomeprazol 3-0 Yes [id number] 40mg Take 1 [facility] e (NEXIUM) 5-12 capsule by ity of 40 mg 00:00: mouth [place] capsule 00 daily with Medica l breakfast. Branch maalox:diph 3-0 Yes [id number] 15mL Take 15 mL [facility] enhydrAMINE 5-12 by mouth ity of :lidocaine 00:00: as needed [place] 2 % viscous 00 for Oral Medi shanice 1:1:1 mucositis Branch (EPIGASTRI C PAIN). proMETHazin 3-0 Yes [id number] 25mg Take 1 [facility] e 25 mg 5-12 tablet by ity of tablet 00:00: mouth [place] 00 every 6 Medical (six) Branch hours as needed for Nausea and Vomiting (N/V). sucralfate 2023-0 Yes [id number] 1g Take 1 U nivers 1 gram 5-12 tablet by ity of tablet 00:00: mouth [place] 00 before Medical meals and Branch at bedtime. esomeprazol 3-0 Yes [id number] 40mg Take 1 [facility] e (NEXIUM) 5-12 capsule by ity of 40 mg 00:00: mouth [place] capsule 00 daily with Medica l breakfast. Branch maalox:diph 2022-0 Yes [id number] 15mL Take 15 mL [facility] enhydrAMINE 5-12 by mouth ity of :lidocaine 00:00: as needed [place] 2 % viscous 00 for Oral Medi shanice 1:1:1 mucositis Branch (EPIGASTRI C PAIN). proMETHazin 3-0 Yes [id number] 25mg Take 1 [facility] e 25 mg 5-12 tablet by ity of tablet 00:00: mouth [place] 00 every 6 Medical (six) Branch hours as needed for Nausea and Vomiting (N/V). sucralfate 2022-0 Yes [id number] 1g Take 1 U nivers 1 gram 5-12 tablet by ity of tablet 00:00: mouth [place] 00 before Medical meals and Branch at bedtime. esomeprazol 2022-0 Yes [id number] 40mg Take 1 [facility] e (NEXIUM) 5-12 capsule by ity of 40 mg 00:00: mouth [place] capsule 00 daily with Medica l breakfast. Branch maalox:diph 2022-0 Yes [id number] 15mL Take 15 mL [facility] enhydrAMINE 5-12 by mouth ity of :lidocaine 00:00: as needed [place] 2 % viscous 00 for Oral Medi shanice 1:1:1 mucositis Branch (EPIGASTRI C PAIN). proMETHazin 3-0 Yes [id number] 25mg Take 1 [facility] e 25 mg 5-12 tablet by ity of tablet 00:00: mouth [place] 00 every 6 Medical (six) Branch hours as needed for Nausea and Vomiting (N/V). sucralfate 2023-0 Yes [id number] 1g Take 1 U nivers 1 gram 5-12 tablet by ity of tablet 00:00: mouth [place] 00 before Medical meals and Branch at bedtime. esomeprazol 2023-0 Yes [id number] 40mg Take 1 [facility] e (NEXIUM) 5-12 capsule by ity of 40 mg 00:00: mouth [place] capsule 00 daily with Medica l breakfast. Branch ondansetron 2022- No [id number] 4mg Take 1 [facility] (ZOFRAN) 4 01-15 tablet by ity of mg tablet 00:00: 00:00 mouth [place] 00 :00 every 8 Medical (eight) Branch hours as needed for Nausea and Vomiting (N/V). proMETHazin 2022- No [id number] 25mg Take 1 [facility] e 25 mg 01-15 tablet by ity of tablet 00:00: 00:00 mouth [place] 00 :00 every 6 Medical (six) Branch hours as needed for Nausea and Vomiting (N/V). sucralfate 2022- No [id number] 1g Take 1 [facility] 1 gram 01-15 tablet by ity of tablet 00:00: 00:00 mouth [place] 00 :00 before Medical meals and Branch at bedtime. esomeprazol 2022- No [id number] 40mg Take 1 [facility] e (NEXIUM) 01-15 [...] 0145, 15 mL Routine iopamidol 2022- No [id number] 70mL 70 mL, Univers (ISOVUE 12-30 Intravenou ity o f 370-500 mL) 17:30: 17:25 s, ONCE, 1 [place] injection 00 :00 dose, On Medica l 70 mL Wed Branch 12/30/22 at 1230, Routine nitroglycer 2022- No [id number] .8mg 0.8 mg, Univers in 12-30 Sublingual ity of (NITROSTAT) 17:15: 17:15 , ONCE, 1 [place] sublingual 00 :00 dose, On Medic al tablet 0.8 Wed Branch mg 12/30/22 at 1215, Routine metoprolol No [id number] 100mg 100 mg, Univers tartrate 12-30 Oral, ity of (LOPRESSOR) 16:15: 16:41 ONCE, 1 [place] tablet 100 00 :00 dose, On Medic al mg Wed Branch 12/30/22 at 1141, Routine valACYclovi Yes [id number] 1g Take 1 [facility] r 1 gram 4-21 tablet by ity of tablet 00:00: mouth in [place] [address] the Medical morning [place] and 1 tablet at noon and 1 tablet in the evening. valACYclovi Yes [id number] 1g Take 1 [facility] r 1 gram 4-21 tablet by ity of tablet 00:00: mouth in [place] [address] the [facility] morning [place] and 1 tablet at noon and 1 tablet in the evening. valACYclovi Yes [id number] 1g Take 1 [facility] r 1 gram 4-21 tablet by ity of tablet 00:00: mouth in [place] [address] the [facility] morning [place] and 1 tablet at noon and 1 tablet in the evening. valACYclovi 0 Yes [id number] 1g Take 1 [facility] r 1 gram 4-21 tablet by ity of tablet 00:00: mouth in [place] [address] the Medical morning [place] and 1 tablet at noon and 1 tablet in the evening. valACYclovi 0 Yes [id number] 1g Take 1 Univers r 1 gram 4-21 tablet by ity of tablet 00:00: mouth in [place] [address] the Medical morning [place] and 1 tablet at noon and 1 tablet in the evening. valACYclovi 0 Yes [id number] 1g Take 1 Univers r 1 gram 4-21 tablet by ity of tablet 00:00: mouth in [place] [address] the [facility] morning [place] and 1 tablet at noon and 1 tablet in the evening. valACYclovi 0 Yes [id number] 1g Take 1 [facility] r 1 gram 4-21 tablet by ity of tablet 00:00: mouth in [place] [address] the [facility] morning [place] and 1 tablet at noon and 1 tablet in the evening. valACYclovi 0 Yes [id number] 1g Take 1 [facility] r 1 gram 4-21 tablet by ity of tablet 00:00: mouth in [place] 00 the Medical morning Branch and 1 tablet at noon and 1 tablet in the evening. valACYclovi 2022-0 Yes [id number] 1g Take 1 [facility] r 1 gram 4-21 tablet by ity of tablet 00:00: mouth in [place] 00 the Medical morning Branch and 1 tablet at noon and 1 tablet in the evening. valACYclovi 2022- Yes [id number] 1g Take 1 [facility] r 1 gram 4-21 tablet by ity of tablet 00:00: mouth in [place] 00 the Medical morning Branch and 1 tablet at noon and 1 tablet in the evening. valACYclovi Yes [id number] 1g Take 1 [facility] r 1 gram 4-21 tablet by ity of tablet 00:00: mouth in [place] 00 the Medical morning Branch and 1 tablet at noon and 1 tablet in the evening. valACYclovi Yes [id number] 1g Take 1 [facility] r 1 gram 4-21 tablet by ity of tablet 00:00: mouth in [place] 00 the Medical morning Branch and 1 tablet at noon and 1 tablet in the evening. valACYclovi Yes [id number] 1g Take 1 [facility] r 1 gram 4-21 tablet by ity of tablet 00:00: mouth in [place] 00 the Medical morning Branch and 1 tablet at noon and 1 tablet in the evening. valACYclovi Yes [id number] 1g Take 1 Univers r 1 gram 4-21 tablet by ity of tablet 00:00: mouth in [place] 00 the Medical morning Branch and 1 tablet at noon and 1 tablet in the evening. valACYclovi 0 2022- No [id number] 1g Take 1 Univers r 1 gram 4-21 05-12 tablet by ity o f tablet 00:00: 00:00 mouth in [place] 00 :00 the Medical morning Branch and 1 tablet at noon and 1 tablet in the evening. valACYclovi 0 2022- No [id number] 1g Take 1 Univers r 1 gram 4-21 04-29 tablet by ity o f tablet 00:00: 04:59 mouth in [place] 00 :00 the Medical morning Branch and 1 tablet at noon and 1 tablet in the evening. Do all this for 7 days. valACYclovi 0 2022- No [id number] 1g Take 1 Univers r 1 gram 4-21 04-21 tablet by ity o f tablet 00:00: 00:00 mouth in [place] 00 :00 the Medical morning Branch and 1 tablet at noon and 1 tablet in the evening. Do all this for 7 days. levETIRAcet Yes TWICE Unive rs am 500 mg 4-18 DAILY. ity of tablet 09:12: [address] gabapentin 2022-0 Yes gabapentin U nivers 300 mg 4-18 300 mg ity of capsule 09:12: capsule [address] famotidine 2022-0 Yes famotidine U nivers 20 mg 4-18 20 mg ity of tablet 09:12: tablet [address] clonazePAM 2022-0 Yes clonazepam U nivers 0.5 mg 4-18 0.5 mg ity of tablet 09:12: tablet [place] [address] TAKE 1 Medical TABLET BY Branch MOUTH EVERY DAY AT BEDTIME NEEDED FOR SEVERE ANXIETY/PA STACEY ATTACK buPROPion Yes 300mg Take 1 Unive rs XL 300 mg 4-18 tablet by ity o f 24 hr 09:12: mouth. [address] buprenorphi Yes [place] [facility] vers ne [...] mg 4-18 DAILY. ity of tablet 09:12: [address] gabapentin 2022-0 Yes gabapentin U nivers 300 mg 4-18 300 mg ity of capsule 09:12: capsule [address] famotidine 2022-0 Yes famotidine U nivers 20 mg 4-18 20 mg ity of tablet 09:12: tablet [address] clonazePAM Yes clonazepam U nivers 0.5 mg 4-18 0.5 mg ity of tablet 09:12: tablet [place] 14 TAKE 1 Medical TABLET BY Branch MOUTH EVERY DAY AT BEDTIME NEEDED FOR SEVERE ANXIETY/PA STACEY ATTACK buPROPion 0 Yes 300mg Take 1 Unive rs XL 300 mg 4-18 tablet by ity o f 24 hr 09:12: mouth. [place] tablet 14 [facility] buprenorphi Yes [place] [facility] vers ne HCL [...] mg 4-18 DAILY. ity of tablet 09:12: [address] gabapentin Yes gabapentin U nivers 300 mg 4-18 300 mg ity of capsule 09:12: capsule [address] famotidine 0 Yes famotidine U nivers 20 mg 4-18 20 mg ity of tablet 09:12: tablet [address] clonazePAM 0 Yes clonazepam U nivers 0.5 mg 4-18 0.5 mg ity of tablet 09:12: tablet [place] 14 TAKE 1 Medical TABLET BY Branch MOUTH EVERY DAY AT BEDTIME NEEDED FOR SEVERE ANXIETY/PA STACEY ATTACK buPROPion 2022-0 Yes 300mg Take 1 Unive rs XL 300 mg 4-18 tablet by ity o f 24 hr 09:12: mouth. [place] tablet 14 [facility] buprenorphi Yes [place] [facility] vers ne HCL [...] mg 4-18 DAILY. ity of tablet 09:12: [address] gabapentin Yes gabapentin U nivers 300 mg 4-18 300 mg ity of capsule 09:12: capsule [address] famotidine Yes famotidine U nivers 20 mg 4-18 20 mg ity of tablet 09:12: tablet [address] clonazePAM Yes clonazepam U nivers 0.5 mg 4-18 0.5 mg ity of tablet 09:12: tablet [place] [address] TAKE 1 Medical TABLET BY Branch MOUTH EVERY DAY AT BEDTIME NEEDED FOR SEVERE ANXIETY/PA STACEY ATTACK buPROPion Yes 300mg Take 1 Unive rs XL 300 mg 4-18 tablet by ity o f 24 hr 09:12: mouth. [place] tablet 14 [facility] buprenorphi Yes [place] [facility] vers ne HCL [...] mg 4-18 DAILY. ity of tablet 09:12: [address] gabapentin 2022-0 Yes gabapentin U nivers 300 mg 4-18 300 mg ity of capsule 09:12: capsule [address] famotidine 2022-0 Yes famotidine U nivers 20 mg 4-18 20 mg ity of tablet 09:12: tablet [address] clonazePAM 2022-0 Yes clonazepam U nivers 0.5 mg 4-18 0.5 mg ity of tablet 09:12: tablet [place] [address] TAKE 1 Medical TABLET BY Branch MOUTH EVERY DAY AT BEDTIME NEEDED FOR SEVERE ANXIETY/PA STACEY ATTACK buPROPion 2022-0 Yes 300mg Take 1 Unive rs XL 300 mg 4-18 tablet by ity o f 24 hr 09:12: mouth. [address] buprenor[place] Yes [place] [facility] vers ne [...] Med ica ion Branch aerosol inhaler levETIRAcet 2022-0 Yes TWICE Unive rs am 500 mg 4-18 DAILY. ity of tablet 09:12: [address] gabapentin 2022-0 Yes gabapentin U nivers 300 mg 4-18 300 mg ity of capsule 09:12: capsule [address] famotidine 2022-0 Yes famotidine U nivers 20 mg 4-18 20 mg ity of tablet 09:12: tablet [address] clonazePAM 2022-0 Yes clonazepam U nivers 0.5 mg 4-18 0.5 mg ity of tablet 09:12: tablet [place] [address] TAKE 1 Medical TABLET BY Branch MOUTH EVERY DAY AT BEDTIME NEEDED FOR SEVERE ANXIETY/PA STACEY ATTACK buPROPion Yes 300mg Take 1 Unive rs XL 300 mg 4-18 tablet by ity o f 24 hr 09:12: mouth. [place] tablet 14 [facility] buprenorphi Yes [place] [facility] vers ne HCL [...] mg 4-18 DAILY. ity of tablet 09:12: [address] gabapentin Yes gabapentin U nivers 300 mg 4-18 300 mg ity of capsule 09:12: capsule [address] famotidine Yes famotidine U nivers 20 mg 4-18 20 mg ity of tablet 09:12: tablet [address] clonazePAM Yes clonazepam U nivers 0.5 mg 4-18 0.5 mg ity of tablet 09:12: tablet [place] [address] TAKE 1 Medical TABLET BY Branch MOUTH EVERY DAY AT BEDTIME NEEDED FOR SEVERE ANXIETY/PA STACEY ATTACK buPROPion Yes 300mg Take 1 Unive rs XL 300 mg 4-18 tablet by ity o f 24 hr 09:12: mouth. [place] tablet 14 [facility] buprenorphi Yes [place] [facility] vers ne HCL [...] mg 4-18 DAILY. ity of tablet 09:12: [address] gabapentin Yes gabapentin U nivers 300 mg 4-18 300 mg ity of capsule 09:12: capsule [address] famotidine Yes famotidine U nivers 20 mg 4-18 20 mg ity of tablet 09:12: tablet [address] clonazePAM Yes clonazepam U nivers 0.5 mg 4-18 0.5 mg ity of tablet 09:12: tablet [place] [address] TAKE 1 Medical TABLET BY Branch MOUTH EVERY DAY AT BEDTIME NEEDED FOR SEVERE ANXIETY/PA STACEY ATTACK buPROPion Yes 300mg Take 1 Unive rs XL 300 mg 4-18 tablet by ity o f 24 hr 09:12: mouth. [address] buprenorphi Yes [place] [facility] vers ne [...] mg 4-18 DAILY. ity of tablet 09:12: [address] gabapentin Yes gabapentin U nivers 300 mg 4-18 300 mg ity of capsule 09:12: capsule [address] famotidine Yes famotidine U nivers 20 mg 4-18 20 mg ity of tablet 09:12: tablet [address] clonazePAM Yes clonazepam U nivers 0.5 mg 4-18 0.5 mg ity of tablet 09:12: tablet [place] 14 TAKE 1 Medical TABLET BY Branch MOUTH EVERY DAY AT BEDTIME NEEDED FOR SEVERE ANXIETY/PA STACEY ATTACK buPROPion 0 Yes 300mg Take 1 Unive rs XL 300 mg 4-18 tablet by ity o f 24 hr 09:12: mouth. [place] tablet 14 [facility] buprenorphi Yes [place] [facility] vers ne HCL [...] [place] [facility] levETIRAcet Yes TWICE Unive rs am 500 mg 4-18 DAILY. ity of tablet 09:12: [address] gabapentin Yes gabapentin U nivers 300 mg 4-18 300 mg ity of capsule 09:12: capsule [address] famotidine Yes famotidine U nivers 20 mg 4-18 20 mg ity of tablet 09:12: tablet [address] clonazePAM 0 Yes clonazepam U nivers 0.5 mg 4-18 0.5 mg ity of tablet 09:12: tablet [place] [address] TAKE 1 Medical TABLET BY Branch MOUTH EVERY DAY AT BEDTIME NEEDED FOR SEVERE ANXIETY/PA STACEY ATTACK buPROPion 0 Yes 300mg Take 1 Unive rs XL 300 mg 4-18 tablet by ity o f 24 hr 09:12: mouth. [place] tablet 14 [facility] buprenorphi Yes [place] [facility] vers ne HCL [...] mg 4-18 DAILY. ity of tablet 09:12: [address] gabapentin Yes gabapentin U nivers 300 mg 4-18 300 mg ity of capsule 09:12: capsule [address] famotidine 0 Yes famotidine U nivers 20 mg 4-18 20 mg ity of tablet 09:12: tablet [address] clonazePAM 0 Yes clonazepam U nivers 0.5 mg 4-18 0.5 mg ity of tablet 09:12: tablet [place] [address] TAKE 1 Medical TABLET BY Branch MOUTH EVERY DAY AT BEDTIME NEEDED FOR SEVERE ANXIETY/PA STACEY ATTACK buPROPion 0 Yes 300mg Take 1 Unive rs XL 300 mg 4-18 tablet by ity o f 24 hr 09:12: mouth. [place] tablet [address] [place] [address] buprenorphi Yes [place] [facility] vers ne HCL [...] mg 4-18 DAILY. ity of tablet 09:12: [address] gabapentin 0 Yes gabapentin U nivers 300 mg 4-18 300 mg ity of capsule 09:12: capsule [address] famotidine 2022-0 Yes famotidine U nivers 20 mg 4-18 20 mg ity of tablet 09:12: tablet [address] clonazePAM 2022-0 Yes clonazepam U nivers 0.5 mg 4-18 0.5 mg ity of tablet 09:12: tablet [place] [address] TAKE 1 Medical TABLET BY Branch MOUTH EVERY DAY AT BEDTIME NEEDED FOR SEVERE ANXIETY/PA STACEY ATTACK buPROPion 0 Yes 300mg Take 1 Unive rs XL 300 mg 4-18 tablet by ity o f 24 hr 09:12: mouth. [address] buprenorphi Yes [place] [facility] vers ne [...] mg 4-18 DAILY. ity of tablet 09:12: [address] gabapentin 0 Yes gabapentin U nivers 300 mg 4-18 300 mg ity of capsule 09:12: capsule [address] famotidine 2022-0 Yes famotidine U nivers 20 mg 4-18 20 mg ity of tablet 09:12: tablet [address] clonazePAM 2022-0 Yes clonazepam U nivers 0.5 mg 4-18 0.5 mg ity of tablet 09:12: tablet [place] 14 TAKE 1 Medical TABLET BY Branch [...] mg 4-18 DAILY. ity of tablet 09:12: [address] gabapentin Yes gabapentin U nivers 300 mg 4-18 300 mg ity of capsule 09:12: capsule [address] famotidine Yes famotidine U nivers 20 mg 4-18 20 mg ity of tablet 09:12: tablet [address] clonazePAM Yes clonazepam U nivers 0.5 mg 4-18 0.5 mg ity of tablet 09:12: tablet [place] [address] TAKE 1 Medical TABLET BY Branch MOUTH [...] mg 4-18 DAILY. ity of tablet 09:12: [address] gabapentin Yes gabapentin U nivers 300 mg 4-18 300 mg ity of capsule 09:12: capsule [address] famotidine Yes famotidine U nivers 20 mg 4-18 20 mg ity of tablet 09:12: tablet [address] clonazePAM Yes clonazepam U nivers 0.5 mg 4-18 0.5 mg ity of tablet 09:12: tablet [place] 14 TAKE 1 Medical TABLET BY Branch [...] mg 4-18 DAILY. ity of tablet 09:12: [address] gabapentin Yes gabapentin U nivers 300 mg 4-18 300 mg ity of capsule 09:12: capsule [address] famotidine 0 Yes famotidine U nivers 20 mg 4-18 20 mg ity of tablet 09:12: tablet [address] clonazePAM Yes clonazepam U nivers 0.5 mg 4-18 0.5 mg ity of tablet 09:12: tablet [place] 14 TAKE 1 Medical TABLET BY Branch [...] mg 4-18 DAILY. ity of tablet 09:12: [address] gabapentin Yes gabapentin U nivers 300 mg 4-18 300 mg ity of capsule 09:12: capsule [address] famotidine Yes famotidine U nivers 20 mg 4-18 20 mg ity of tablet 09:12: tablet [address] clonazePAM Yes clonazepam U nivers 0.5 mg 4-18 0.5 mg ity of tablet 09:12: tablet [place] [address] TAKE 1 Medical TABLET BY Branch MOUTH [...] mg 4-18 DAILY. ity of tablet 09:12: [address] gabapentin 2022-0 Yes gabapentin U nivers 300 mg 4-18 300 mg ity of capsule 09:12: capsule [address] famotidine 2022-0 Yes famotidine U nivers 20 mg 4-18 20 mg ity of tablet 09:12: tablet [address] clonazePAM 2022-0 Yes clonazepam U nivers 0.5 mg 4-18 0.5 mg ity of tablet 09:12: tablet [place] 14 TAKE 1 Medical TABLET BY Branch [...] mg 4-18 DAILY. ity of tablet 09:12: [address] gabapentin 0 Yes gabapentin U nivers 300 mg 4-18 300 mg ity of capsule 09:12: capsule [address] famotidine 2022-0 Yes famotidine U nivers 20 mg 4-18 20 mg ity of tablet 09:12: tablet [address] clonazePAM 2022-0 Yes clonazepam U nivers 0.5 mg 4-18 0.5 mg ity of tablet 09:12: tablet [place] 14 TAKE 1 Medical TABLET BY Branch [...] mg 4-18 DAILY. ity of tablet 09:12: [address] gabapentin Yes gabapentin U nivers 300 mg 4-18 300 mg ity of capsule 09:12: capsule [address] famotidine Yes famotidine U nivers 20 mg 4-18 20 mg ity of tablet 09:12: tablet [address] clonazePAM Yes clonazepam U nivers 0.5 mg 4-18 0.5 mg ity of tablet 09:12: tablet [place] [address] TAKE 1 Medical TABLET BY Branch MOUTH [...] mg 4-18 DAILY. ity of tablet 09:12: [address] gabapentin Yes gabapentin U nivers 300 mg 4-18 300 mg ity of capsule 09:12: capsule [address] famotidine 0 Yes famotidine U nivers 20 mg 4-18 20 mg ity of tablet 09:12: tablet [address] clonazePAM 2022-0 Yes clonazepam U nivers 0.5 mg 4-18 0.5 mg ity of tablet 09:12: tablet [place] 14 TAKE 1 Medical TABLET BY Branch [...] mg 4-18 DAILY. ity of tablet 09:12: [address] gabapentin 0 Yes gabapentin U nivers 300 mg 4-18 300 mg ity of capsule 09:12: capsule [address] famotidine 0 Yes famotidine U nivers 20 mg 4-18 20 mg ity of tablet 09:12: tablet [address] clonazePAM 2022-0 Yes clonazepam U nivers 0.5 mg 4-18 0.5 mg ity of tablet 09:12: tablet [place] 14 TAKE 1 Medical TABLET BY Branch [...] mg 4-18 DAILY. ity of tablet 09:12: [address] gabapentin Yes gabapentin U nivers 300 mg 4-18 300 mg ity of capsule 09:12: capsule [address] famotidine Yes famotidine U nivers 20 mg 4-18 20 mg ity of tablet 09:12: tablet [address] clonazePAM Yes clonazepam U nivers 0.5 mg 4-18 0.5 mg ity of tablet 09:12: tablet [place] [address] TAKE 1 Medical TABLET BY Branch MOUTH [...] mg 4-18 DAILY. ity of tablet 09:12: [address] gabapentin Yes gabapentin U nivers 300 mg 4-18 300 mg ity of capsule 09:12: capsule [address] famotidine Yes famotidine U nivers 20 mg 4-18 20 mg ity of tablet 09:12: tablet [address] clonazePAM 2022-0 Yes clonazepam U nivers 0.5 mg 4-18 0.5 mg ity of tablet 09:12: tablet [place] 14 TAKE 1 Medical TABLET BY Branch [...] mg 4-18 DAILY. ity of tablet 09:12: [address] gabapentin Yes gabapentin U nivers 300 mg 4-18 300 mg ity of capsule 09:12: capsule [address] famotidine 0 Yes famotidine U nivers 20 mg 4-18 20 mg ity of tablet 09:12: tablet [address] clonazePAM 2022-0 Yes clonazepam U nivers 0.5 mg 4-18 0.5 mg ity of tablet 09:12: tablet [place] [address] TAKE 1 Medical TABLET BY Branch MOUTH [...] Med ical ion Branch aerosol inhaler aspirin No 162mg 162 mg, Unive rs chewable 12-19 Oral, ONCE ity of tablet 162 10:30: 09:42 NOW, [place] :[place] dose, On Medical Sat Branch 12/19/22 at 0530, Routine iopamidol 2022- No [id number] 99mL 99 mL, U nivers (ISOVUE 12-19 [...] 800 mg ity of tablet 10:43: tablet [address] Branch adalimumab 0 Yes 40mg inject 1 Uni vers (HUMIRA) 40 4-11 Syringe ity o f mg/0.8 mL 10:43: under the [place] as injection 17 skin. Medical Branch ibuprofen Yes ibuprofen Uni vers 800 mg 4-11 800 mg ity of tablet 10:43: tablet [place] [address] Medical Branch adalimumab 2022-0 Yes 40mg inject 1 Uni vers (HUMIRA) 40 4-11 Syringe ity o f mg/0.8 mL 10:43: under the [place] injection 17 skin. Medical Branch ibuprofen Yes ibuprofen Uni vers 800 mg 4-11 800 mg ity of tablet 10:43: tablet [place] [address] Medical Branch adalimumab 2022-0 Yes 40mg inject 1 Uni vers (HUMIRA) 40 4-11 Syringe ity o f mg/0.8 mL 10:43: under the [place] injection 17 skin. Medical Branch ibuprofen Yes ibuprofen Uni vers 800 mg 4-11 800 mg ity of tablet 10:43: tablet [place] [address] Medical Branch adalimumab 2022-0 Yes 40mg inject [...] 800 mg ity of tablet 10:43: tablet [address] Branch adalimumab 3-0 Yes 40mg inject 1 Uni vers (HUMIRA) 40 4-11 Syringe ity o f mg/0.8 mL 10:43: under the [place] injection 17 skin. Medical Branch ibuprofen 2022-0 Yes ibuprofen Uni vers 800 mg 4-11 800 mg ity of tablet 10:43: tablet [place] [address] Medical Branch adalimumab 3-0 Yes 40mg inject 1 Uni vers (HUMIRA) 40 4-11 Syringe ity o f mg/0.8 mL 10:43: under the [place] injection 17 skin. Medical Branch ibuprofen 2022-0 Yes ibuprofen Uni vers 800 mg 4-11 800 mg ity of tablet 10:43: tablet [place] [address] Medical Branch adalimumab 2022-0 Yes 40mg inject 1 Uni vers (HUMIRA) 40 4-11 Syringe ity o f mg/0.8 mL 10:43: under the [place] injection 17 skin. Medical Branch ibuprofen 2022-0 Yes ibuprofen Uni vers 800 mg 4-11 800 mg ity of tablet 10:43: tablet [address] Branch adalimumab 2022-0 Yes 40mg inject 1 Uni vers (HUMIRA) 40 4-11 Syringe ity o f mg/0.8 mL 10:43: under the [place] injection 17 skin. Medical Branch ibuprofen 2022-0 Yes ibuprofen Uni vers 800 mg 4-11 800 mg ity of tablet 10:43: tablet [address] Branch pregabalin 3-0 Yes 150mg Take 1 Univ ers 150 mg 3-30 capsule by ity of capsule 00:00: mouth in [place] [address] the Medical morning Branch and 1 capsule in the evening. meloxicam 2022-0 Yes Univers 15 mg 3-30 ity of tablet 00:00: [place] 00 Medical Branch HYDROcodone 2022-0 Yes 1{tbl} Take 1 Un travis -acetaminop 3-30 tablet by ity of hen 5-325 00:00: mouth 4 [place] mg tablet 00 (four) Medical times Branch daily. pregabalin 2023-0 Yes 150mg Take 1 Univ ers 150 mg 3-30 capsule by ity of capsule 00:00: mouth in [place] [address] the Medical morning Branch and 1 capsule in the evening. meloxicam 3-0 Yes Univers 15 mg 3-30 ity of tablet 00:00: [place] 00 Medical Branch HYDROcodone 2023-0 Yes 1{tbl} Take 1 Un travis -acetaminop 3-30 tablet by ity of hen 5-325 00:00: mouth 4 [place] mg tablet 00 ([facility]) Medical times [place] daily. pregabalin 2023-0 Yes 150mg Take 1 Univ ers 150 mg 3-30 capsule by ity of capsule 00:00: mouth in [place] the Medical morning Branch and 1 capsule in the evening. meloxicam 2023-0 Yes Univers 15 mg 3-30 ity of tablet 00:00: [place] [facility] Branch HYDROcodone 2023-0 Yes 1{tbl} Take 1 Un travis -acetaminop 3-30 tablet by ity of hen 5-325 00:00: mouth 4 [place] mg tablet 00 ([facility]) Medical times [place] daily. pregabalin 2023-0 Yes 150mg Take 1 Univ ers 150 mg 3-30 capsule by ity of capsule 00:00: mouth in [place] the Medical morning Branch and 1 capsule in the evening. meloxicam 2023-0 Yes Univers 15 mg 3-30 ity of tablet 00:00: [place] [facility] Branch HYDROcodone 2023-0 Yes 1{tbl} Take 1 Un travis -acetaminop 3-30 tablet by ity of hen 5-325 00:00: mouth 4 [place] mg tablet ([facility]) Medical times [place] daily. pregabalin 2023-0 Yes 150mg Take 1 Univ ers 150 mg 3-30 capsule by ity of capsule 00:00: mouth in [place] the Medical morning Branch and 1 capsule in the evening. meloxicam 2023-0 Yes Univers 15 mg 3-30 ity of tablet 00:00: [place] [facility] Branch HYDROcodone 2023-0 Yes 1{tbl} Take 1 Un travis -acetaminop 3-30 tablet by ity of hen 5-325 00:00: mouth 4 [place] mg tablet 00 ([facility]) Medical times [place] daily. pregabalin 2023-0 Yes 150mg Take 1 Univ ers 150 mg 3-30 capsule by ity of capsule 00:00: mouth in [place] the Medical morning Branch and 1 capsule in the evening. meloxicam 2023-0 Yes Univers 15 mg 3-30 ity of tablet 00:00: [place] [facility] Branch HYDROcodone 2023-0 Yes 1{tbl} Take 1 Un travis -acetaminop 3-30 tablet by ity of hen 5-325 00:00: mouth 4 [place] mg tablet 00 ([facility]) Medical times [place] daily. pregabalin 2023-0 Yes 150mg Take 1 Univ ers 150 mg 3-30 capsule by ity of capsule 00:00: mouth in [place] the Medical morning Branch and 1 capsule in the evening. meloxicam 2023-0 Yes Univers 15 mg 3-30 ity of tablet 00:00: [place] 00 [facility] Branch HYDROcodone 2023-0 Yes 1{tbl} Take 1 Un travis -acetaminop 3-30 tablet by ity of hen 5-325 00:00: mouth 4 [place] mg tablet 00 (four) Medical times [place] daily. pregabalin 2023-0 Yes 150mg Take 1 Univ ers 150 mg 3-30 capsule by ity of capsule 00:00: mouth in [place] the Medical morning Branch and 1 capsule in the evening. meloxicam 2023-0 Yes Univers 15 mg 3-30 ity of tablet 00:00: [place] [facility] Branch HYDROcodone 2023-0 Yes 1{tbl} Take 1 Un travis -acetaminop 3-30 tablet by ity of hen 5-325 00:00: mouth 4 [place] mg tablet 00 ([facility]) Medical times [place] daily. pregabalin 2023-0 Yes 150mg Take 1 Univ ers 150 mg 3-30 capsule by ity of capsule 00:00: mouth in [place] the Medical morning Branch and 1 capsule in the evening. meloxicam 2023-0 Yes Univers 15 mg 3-30 ity of tablet 00:00: [place] [facility] Branch HYDROcodone 2023-0 Yes 1{tbl} Take 1 Un travis -acetaminop 3-30 tablet by ity of hen 5-325 00:00: mouth 4 [place] mg tablet 00 (four) Medical times [place] daily. pregabalin 2023-0 Yes 150mg Take 1 Univ ers 150 mg 3-30 capsule by ity of capsule 00:00: mouth in [place] the Medical morning Branch and 1 capsule in the evening. meloxicam 2023-0 Yes Univers 15 mg 3-30 ity of tablet 00:00: [place] 00 [facility] Branch HYDROcodone 2023-0 Yes 1{tbl} Take 1 Un travis -acetaminop 3-30 tablet by ity of hen 5-325 00:00: mouth 4 [place] mg tablet 00 ([facility]) Medical times [place] daily. pregabalin 2023-0 Yes 150mg Take 1 Univ ers 150 mg 3-30 capsule by ity of capsule 00:00: mouth in [place] the Medical morning Branch and 1 capsule in the evening. meloxicam 2023-0 Yes Univers 15 mg 3-30 ity of tablet 00:00: [place] [facility] Branch HYDROcodone 2023-0 Yes 1{tbl} Take 1 Un travis -acetaminop 3-30 tablet by ity of hen 5-325 00:00: mouth 4 [place] mg tablet 00 ([facility]) Medical times [place] daily. pregabalin 2023-0 Yes 150mg Take 1 Univ ers 150 mg 3-30 capsule by ity of capsule 00:00: mouth in [place] the [facility] morning Branch and 1 capsule in the evening. meloxicam 2023-0 Yes Univers 15 mg 3-30 ity of tablet 00:00: [place] [facility] Branch HYDROcodone 2023-0 Yes 1{tbl} Take 1 Un travis -acetaminop 3-30 tablet by ity of hen 5-325 00:00: mouth 4 [place] mg tablet 00 ([facility]) [facility] times [place] daily. pregabalin 2023-0 Yes 150mg Take 1 Univ ers 150 mg 3-30 capsule by ity of capsule 00:00: mouth in [place] the [facility] morning Branch and 1 capsule in the evening. meloxicam 2023-0 Yes Univers 15 mg 3-30 ity of tablet 00:00: [place] [facility] Branch HYDROcodone 2023-0 Yes 1{tbl} Take 1 Un travis -acetaminop 3-30 tablet by ity of hen 5-325 00:00: mouth 4 [place] mg tablet 00 (four) Medical times [place] daily. pregabalin 2023-0 Yes 150mg Take 1 Univ ers 150 mg 3-30 capsule by ity of capsule 00:00: mouth in [place] the Medical morning Branch and 1 capsule in the evening. meloxicam 2023-0 Yes Univers 15 mg 3-30 ity of tablet 00:00: [place] [facility] Branch HYDROcodone 2023-0 Yes 1{tbl} Take 1 Un travis -acetaminop 3-30 tablet by ity of hen 5-325 00:00: mouth 4 [place] mg tablet 00 (four) Medical times Branch daily. pregabalin 2023-0 Yes 150mg Take 1 Univ ers 150 mg 3-30 capsule by ity of capsule 00:00: mouth in [place] the Medical morning Branch and 1 capsule in the evening. meloxicam 2023-0 Yes Univers 15 mg 3-30 ity of tablet 00:00: [place] [facility] Branch HYDROcodone 2023-0 Yes 1{tbl} Take 1 Un travis -acetaminop 3-30 tablet by ity of hen 5-325 00:00: mouth 4 [place] mg tablet ([facility]) [facility] times [place] daily. pregabalin 2023-0 Yes 150mg Take 1 Univ ers 150 mg 3-30 capsule by ity of capsule 00:00: mouth in [place] the [facility] morning Branch and 1 capsule in the evening. meloxicam 2023-0 Yes Univers 15 mg 3-30 ity of tablet 00:00: [place] [facility] Branch HYDROcodone 2023-0 Yes 1{tbl} Take 1 Un travis -acetaminop 3-30 tablet by ity of hen 5-325 00:00: mouth 4 [place] mg tablet ([facility]) [facility] times [place] daily. pregabalin 2023-0 Yes 150mg Take 1 Univ ers 150 mg 3-30 capsule by ity of capsule 00:00: mouth in [place] the [facility] morning Branch and 1 capsule in the evening. meloxicam 2023-0 Yes Univers 15 mg 3-30 ity of tablet 00:00: [place] [facility] Branch HYDROcodone 2023-0 Yes 1{tbl} Take 1 Un travis -acetaminop 3-30 tablet by ity of hen 5-325 00:00: mouth 4 [place] mg tablet ([facility]) [facility] times [place] daily. pregabalin 2023-0 Yes 150mg Take 1 Univ ers 150 mg 3-30 capsule by ity of capsule 00:00: mouth in [place] the [facility] morning Branch and 1 capsule in the evening. meloxicam 2023-0 Yes Univers 15 mg 3-30 ity of tablet 00:00: [place] [facility] Branch HYDROcodone 2023-0 Yes 1{tbl} Take 1 Un travis -acetaminop 3-30 tablet by ity of hen 5-325 00:00: mouth 4 [place] mg tablet 00 ([facility]) Medical times [place] daily. pregabalin 2023-0 Yes 150mg Take 1 Univ ers 150 mg 3-30 capsule by ity of capsule 00:00: mouth in [place] the Medical morning Branch and 1 capsule in the evening. meloxicam 2023-0 Yes Univers 15 mg 3-30 ity of tablet 00:00: [place] [facility] Branch HYDROcodone 2023-0 Yes 1{tbl} Take 1 Un travis -acetaminop 3-30 tablet by ity of hen 5-325 00:00: mouth 4 [place] mg tablet 00 ([facility]) Medical times [place] daily. pregabalin 2023-0 Yes 150mg Take 1 Univ ers 150 mg 3-30 capsule by ity of capsule 00:00: mouth in [place] the Medical morning Branch and 1 capsule in the evening. meloxicam 2023-0 Yes Univers 15 mg 3-30 ity of tablet 00:00: [place] [facility] Branch HYDROcodone 2023-0 Yes 1{tbl} Take 1 Un travis -acetaminop 3-30 tablet by ity of hen 5-325 00:00: mouth 4 [place] mg tablet ([facility]) Medical times [place] daily. pregabalin 2023-0 Yes 150mg Take 1 Univ ers 150 mg 3-30 capsule by ity of capsule 00:00: mouth in [place] [address] the Medical morning Branch and 1 capsule in the evening. meloxicam 2023-0 Yes Univers 15 mg 3-30 ity of tablet 00:00: [place] [facility] Branch HYDROcodone 2023-0 Yes 1{tbl} Take 1 Un travis -acetaminop 3-30 tablet by ity of hen 5-325 00:00: mouth 4 [place] mg tablet ([facility]) Medical times [place] daily. pregabalin 2023-0 Yes 150mg Take 1 Univ ers 150 mg 3-30 capsule by ity of capsule 00:00: mouth in [place] [address] the Medical morning Branch and 1 capsule in the evening. meloxicam 2023-0 Yes Univers 15 mg 3-30 ity of tablet 00:00: [place] [facility] Branch HYDROcodone 2023-0 Yes 1{tbl} Take 1 Un travis -acetaminop 3-30 tablet by ity of hen 5-325 00:00: mouth 4 [place] mg tablet 00 (four) Medical times [place] daily. pregabalin 2023-0 Yes 150mg Take 1 Univ ers 150 mg 3-30 capsule by ity of capsule 00:00: mouth in [place] [address] the Medical morning Branch and 1 capsule in the evening. meloxicam 2023-0 Yes Univers 15 mg 3-30 ity of tablet 00:00: [place] [facility] Branch HYDROcodone 2023-0 Yes 1{tbl} Take 1 Un travis -acetaminop 3-30 tablet by ity of hen 5-325 00:00: mouth 4 [place] mg tablet 00 ([facility]) [facility] times [place] daily. pregabalin 2023-0 Yes 150mg Take 1 Univ ers 150 mg 3-30 capsule by ity of capsule 00:00: mouth in [place] the Medical morning Branch and 1 capsule in the evening. meloxicam 2023-0 Yes Univers 15 mg 3-30 ity of tablet 00:00: [place] [facility] Branch HYDROcodone 2023-0 Yes 1{tbl} Take 1 Un travis -acetaminop 3-30 tablet by ity of hen 5-325 00:00: mouth 4 [place] mg tablet 00 ([facility]) [facility] times [place] daily. pregabalin 2023-0 Yes 150mg Take 1 Univ ers 150 mg 3-30 capsule by ity of capsule 00:00: mouth in [place] the [facility] morning Branch and 1 capsule in the evening. meloxicam 2023-0 Yes Univers 15 mg 3-30 ity of tablet 00:00: [place] [facility] Branch HYDROcodone 2023-0 Yes 1{tbl} Take 1 Un travis -acetaminop 3-30 tablet by ity of hen 5-325 00:00: mouth 4 [place] mg tablet 00 ([facility]) [facility] daily. pregabalin 2023-0 Yes 150mg Take 1 Univ ers 150 mg 3-30 capsule by ity of capsule 00:00: mouth in [place] the Medical morning Branch and 1 capsule in the evening. meloxicam 2023-0 Yes Univers 15 mg 3-30 ity of tablet 00:00: [place] [facility] Branch HYDROcodone 2023-0 Yes 1{tbl} Take 1 Un travis -acetaminop 3-30 tablet by ity of hen 5-325 00:00: mouth 4 [place] mg tablet 00 (four) [facility] times [place] daily. pregabalin 2023-0 Yes 150mg Take 1 Univ ers 150 mg 3-30 capsule by ity of capsule 00:00: mouth in [place] [address] the [facility] morning Branch and 1 capsule in the evening. meloxicam 2023-0 Yes Univers 15 mg 3-30 ity of tablet 00:00: [place] 00 [facility] Branch HYDROcodone 2023-0 Yes 1{tbl} Take 1 Un travis -acetaminop 3-30 tablet by ity of hen 5-325 00:00: mouth 4 [place] mg tablet ([facility]) [facility] times [place] daily. pregabalin 2023-0 Yes 150mg Take 1 Univ ers 150 mg 3-30 capsule by ity of capsule 00:00: mouth in [place] the Medical morning Branch and 1 capsule in the evening. meloxicam 2023-0 Yes Univers 15 mg 3-30 ity of tablet 00:00: [place] [facility] Branch HYDROcodone 2023-0 Yes 1{tbl} Take 1 Un travis -acetaminop 3-30 tablet by ity of hen 5-325 00:00: mouth 4 [place] mg tablet ([facility]) [facility] times [place] daily. pregabalin 2023-0 Yes 150mg Take 1 Univ ers 150 mg 3-30 capsule by ity of capsule 00:00: mouth in [place] the [facility] morning Branch and 1 capsule in the evening. meloxicam 2023-0 Yes Univers 15 mg 3-30 ity of tablet 00:00: [place] [facility] Branch HYDROcodone 2023-0 Yes 1{tbl} Take 1 Un travis -acetaminop 3-30 tablet by ity of hen 5-325 00:00: mouth 4 [place] mg tablet ([facility]) [facility] daily. pregabalin 2023-0 Yes 150mg Take 1 Univ ers 150 mg 3-30 capsule by ity of capsule 00:00: mouth in [place] the [facility] morning Branch and 1 capsule in the evening. meloxicam 2023-0 Yes Univers 15 mg 3-30 ity of tablet 00:00: [place] [facility] Branch HYDROcodone 2023-0 Yes 1{tbl} Take 1 Un travis -acetaminop 3-30 tablet by ity of hen 5-325 00:00: mouth 4 [place] mg tablet 00 ([facility]) [facility] times [place] daily. pregabalin 2023-0 Yes 150mg Take 1 Univ ers 150 mg 3-30 capsule by ity of capsule 00:00: mouth in [place] the [facility] morning Branch and 1 capsule in the evening. meloxicam 2023-0 Yes Univers 15 mg 3-30 ity of tablet 00:00: [place] 00 [facility] Branch HYDROcodone 2023-0 Yes 1{tbl} Take 1 Un travis -acetaminop 3-30 tablet by ity of hen 5-325 00:00: mouth 4 [place] mg tablet ([facility]) [facility] times [place] daily. pregabalin 2023-0 Yes 150mg Take 1 Univ ers 150 mg 3-30 capsule by ity of capsule 00:00: mouth in [place] the Medical morning Branch and 1 capsule in the evening. meloxicam 2023-0 Yes Univers 15 mg 3-30 ity of tablet 00:00: [place] [facility] Branch HYDROcodone 2023-0 Yes 1{tbl} Take 1 Un travis -acetaminop 3-30 tablet by ity of hen 5-325 00:00: mouth 4 [place] mg tablet ([facility]) [facility] times [place] daily. pregabalin 2023-0 Yes 150mg Take 1 Univ ers 150 mg 3-30 capsule by ity of capsule 00:00: mouth in [place] the [facility] morning Branch and 1 capsule in the evening. meloxicam 2023-0 Yes Univers 15 mg 3-30 ity of tablet 00:00: [place] [facility] Branch HYDROcodone 2023-0 Yes 1{tbl} Take 1 Un travis -acetaminop 3-30 tablet by ity of hen 5-325 00:00: mouth 4 [place] mg tablet ([facility]) [facility] times [place] daily. pregabalin 2023-0 Yes 150mg Take 1 Univ ers 150 mg 3-30 capsule by ity of capsule 00:00: mouth in [place] the [facility] morning Branch and 1 capsule in the evening. meloxicam 2023-0 Yes Univers 15 mg 3-30 ity of tablet 00:00: [place] [facility] Branch HYDROcodone 2023-0 Yes 1{tbl} Take 1 Un travis -acetaminop 3-30 tablet by ity of hen 5-325 00:00: mouth 4 [place] mg tablet ([facility]) [facility] times [place] daily. pregabalin 2023-0 Yes 150mg Take 1 Univ ers 150 mg 3-30 capsule by ity of capsule 00:00: mouth in [place] the [facility] morning Branch and 1 capsule in the evening. meloxicam 2023-0 Yes Univers 15 mg 3-30 ity of tablet 00:00: [place] [facility] Branch HYDROcodone 2023-0 Yes 1{tbl} Take 1 Un travis -acetaminop 3-30 tablet by ity of hen 5-325 00:00: mouth 4 [place] mg tablet 00 (four) Medical times [place] daily. pregabalin 2023-0 Yes 150mg Take 1 Univ ers 150 mg 3-30 capsule by ity of capsule 00:00: mouth in [place] 00 the Medical morning Branch and 1 capsule in the evening. meloxicam 2023-0 Yes Univers 15 mg 3-30 ity of tablet 00:00: [place] [address] Medical Branch HYDROcodone 2023-0 Yes 1{tbl} Take 1 Un tra[facility] -acetaminop 3-30 tablet by ity of hen 5-325 00:00: mouth 4 [place] mg tablet 00 (four) Medical times [place] daily. pregabalin 2023-0 Yes 150mg Take 1 Univ ers 150 mg 3-30 capsule by ity of capsule 00:00: mouth in [place] [address] the Medical morning Branch and 1 capsule in the evening. meloxicam 2023-0 Yes [facility] 15 mg 3-30 ity of tablet 00:00: [place] 00 [facility] Branch pregabalin 2023-0 Yes 150mg Take 1 Univ ers 150 mg 3-30 capsule by ity of capsule 00:00: mouth in [place] [address] the Medical morning Branch and 1 capsule in the evening. meloxicam 2023-0 Yes [facility] 15 mg 3-30 ity of tablet 00:00: [place] 00 [facility] Branch pregabalin 2023-0 Yes 150mg Take 1 Univ ers 150 mg 3-30 capsule by ity of capsule 00:00: mouth in [place] [address] the Medical morning Branch and 1 capsule in the evening. meloxicam 2023-0 Yes [facility] 15 mg 3-30 ity of tablet 00:00: [address] Branch pregabalin 2023-0 Yes 150mg Take 1 Univ ers 150 mg 3-30 capsule by ity of capsule 00:00: mouth in [place] [address] the Medical morning Branch and 1 capsule in the evening. meloxicam 2023-0 Yes [facility] 15 mg 3-30 ity of tablet 00:00: [address] Branch pregabalin 2023-0 Yes 150mg Take 1 [facility] ers 150 mg 3-30 capsule by ity of capsule 00:00: mouth in [place] [address] the Medical morning Branch and 1 capsule in the evening. meloxicam 2023-0 Yes [facility] 15 mg 3-30 ity of tablet 00:00: [address] Branch pregabalin 2023-0 Yes 150mg Take 1 [facility] ers 150 mg 3-30 capsule by ity of capsule 00:00: mouth in [place] the Medical morning Branch and 1 capsule in the evening. meloxicam 2023-0 Yes [facility] 15 mg 3-30 ity of tablet 00:00: [place] [address] Medical Branch pregabalin 2023-0 Yes 150mg Take 1 [facility] ers 150 mg 3-30 capsule by ity of capsule 00:00: mouth in [place] [address] the Medical morning Branch and 1 capsule in the evening. meloxicam 2023-0 Yes [facility] 15 mg 3-30 ity of tablet 00:00: [place] Medical Branch pregabalin 2023-0 Yes 150mg Take 1 [facility] ers 150 mg 3-30 capsule by ity of capsule 00:00: mouth in [place] [address] the Medical morning Branch and 1 capsule in the evening. meloxicam 2023-0 Yes [facility] 15 mg 3-30 ity of tablet 00:00: [place] [address] Medical Branch HYDROcodone 2023-0 Yes 1{tbl} Take 1 Un travis -acetaminop 3-30 tablet by ity of hen 5-325 00:00: mouth 4 [place] mg tablet 00 (chi [facility]) Medical times [place] daily. pregabalin 2023-0 Yes 150mg Take 1 [facility] ers 150 mg 3-30 capsule by ity of capsule 00:00: mouth in [place] [address] the [facility] morning [place] and 1 capsule in the evening. meloxicam 2023-0 Yes [facility] 15 mg 3-30 ity of tablet 00:00: [place] Medical Branch HYDROcodone 2023-0 Yes 1{tbl} Take 1 Un travis -acetaminop 3-30 tablet by ity of hen 5-325 00:00: mouth 4 [place] mg tablet 00 (four) Medical times [place] daily. pregabalin 2023-0 Yes 150mg Take 1 [facility] ers 150 mg 3-30 capsule by ity of capsule 00:00: mouth in [place] [address] the Medical morning Branch and 1 capsule in the evening. meloxicam 2023-0 Yes [facility] 15 mg 3-30 ity of tablet 00:00: [address] Branch HYDROcodone 2023-0 Yes 1{tbl} Take 1 Un travis -acetaminop 3-30 tablet by ity of hen 5-325 00:00: mouth 4 [place] mg tablet 00 (chi [facility]) Medical times Branch daily. pregabalin 2023-0 Yes 150mg Take 1 Univ ers 150 mg 3-30 capsule by ity of capsule 00:00: mouth in [place] the Medical morning Branch and 1 capsule in the evening. meloxicam 2023-0 Yes [facility] 15 mg 3-30 ity of tablet 00:00: [place] 00 Medical Branch HYDROcodone 2023-0 Yes 1{tbl} Take 1 Un travis -acetaminop 3-30 tablet by ity of hen 5-325 00:00: mouth 4 [place] mg tablet 00 (four) Medical times Branch daily. pregabalin 2023-0 Yes 150mg Take 1 [facility] ers 150 mg 3-30 capsule by ity of capsule 00:00: mouth in [place] the Medical morning Branch and 1 capsule in the evening. meloxicam 2023-0 Yes [facility] 15 mg 3-30 ity of tablet 00:00: [place] 00 Medical Branch HYDROcodone 2023-0 Yes 1{tbl} Take 1 Un travis -acetaminop 3-30 tablet by ity of hen 5-325 00:00: mouth 4 [place] mg tablet 00 (chi [facility]) Medical times Branch daily. pregabalin 2023-0 Yes 150mg Take 1 [facility] ers 150 mg 3-30 capsule by ity of capsule 00:00: mouth in [place] the Medical morning Branch and 1 capsule in the evening. meloxicam 2023-0 Yes [facility] 15 mg 3-30 ity of tablet 00:00: [place] 00 [facility] Branch HYDROcodone 2023-0 Yes 1{tbl} Take 1 Un travis -acetaminop 3-30 tablet by ity of hen 5-325 00:00: mouth 4 [place] mg tablet 00 (four) Medical times Branch daily. HYDROcodone 2023-0 2023- No 1{tbl} Take 1 U nivers -acetaminop 3-30 10-05 tablet by it y of hen 5-325 00:00: 00:00 mouth 4 [place] mg tablet 00 :00 (four) Medical times Branch daily. HYDROcodone 2023-0 2023- No 1{tbl} Take 1 U nivers -acetaminop 3-30 10-05 tablet by it y of hen 5-325 00:00: 00:[place] mouth 4 [place] mg tablet 00 :00 (four) Medical times Branch daily. cyclobenzap 2022-0 Yes TAKE 1 Univ ers [...] 3-15 TABLET BY ity of tablet 00:00: [facility] EVERY DAY Medical AT BEDTIME Branch FOR 30 DAYS cyclobenzap 2022-0 Yes TAKE 1 Univ ers rine 10 mg 3-15 TABLET BY ity of tablet 00:00: [facility] THREE Medical TIMES A Branch DAY NEEDED FOR 30 DAYS amitriptyli 2022-0 Yes TAKE 1 Univ ers ne 50 mg 3-15 TABLET BY ity of tablet 00:00: [facility] EVERY DAY Medical AT BEDTIME Branch FOR 30 DAYS cyclobenzap 2022-0 Yes TAKE 1 Univ ers rine 10 mg 3-15 TABLET BY ity of tablet 00:00: [facility] THREE Medical TIMES A Branch DAY NEEDED FOR 30 DAYS amitriptyli 3-0 Yes TAKE 1 Univ ers ne 50 mg 3-15 TABLET BY ity of tablet 00:00: [facility] EVERY DAY Medical AT BEDTIME Branch FOR 30 DAYS cyclobenzap 3-0 Yes TAKE 1 Univ ers rine 10 mg 3-15 TABLET BY ity of tablet 00:00: MOUTH THREE Medical TIMES A Branch DAY NEEDED FOR 30 DAYS amitriptyli 3-0 Yes TAKE 1 Univ ers ne 50 mg 3-15 TABLET BY ity of tablet 00:00: [facility] EVERY DAY Medical AT BEDTIME Branch FOR 30 DAYS cyclobenzap 3-0 Yes TAKE 1 Univ ers rine 10 mg 3-15 TABLET BY ity of tablet 00:00: [facility] THREE Medical TIMES A Branch DAY NEEDED FOR 30 DAYS amitriptyli 3-0 Yes TAKE 1 Univ ers ne 50 mg 3-15 TABLET BY ity of tablet 00:00: MOUTH EVERY DAY Medical AT BEDTIME [place] FOR 30 DAYS cyclobenzap 2023-0 Yes TAKE 1 Univ ers rine 10 mg 3-15 TABLET BY ity of tablet 00:00: MOUTH THREE Medical TIMES A Branch DAY NEEDED FOR 30 DAYS amitriptyli 2023-0 Yes TAKE 1 Univ ers ne 50 mg 3-15 TABLET BY ity of tablet 00:00: [facility] EVERY DAY Medical AT [facility] Branch FOR 30 DAYS cyclobenzap 3-0 Yes TAKE 1 Univ ers rine 10 mg 3-15 TABLET BY ity of tablet 00:00: [facility] THREE Medical TIMES A Branch DAY NEEDED FOR 30 DAYS amitriptyli 3-0 Yes TAKE 1 Univ ers ne 50 mg 3-15 TABLET BY ity of tablet 00:00: [facility] cycl[facility]ap 3-0 Yes TAKE 1 Univ ers rine 10 mg 3-15 TABLET BY ity of tablet 00:00: [facility] THREE Medical TIMES A Branch DAY NEEDED FOR 30 DAYS amitriptyli 3-0 Yes TAKE 1 Univ ers ne 50 mg 3-15 TABLET BY ity of tablet 00:00: [facility] EVERY DAY Medical AT BEDTIME Branch FOR 30 DAYS cyclobenzap 3-0 Yes TAKE 1 Univ ers rine 10 mg 3-15 TABLET BY ity of tablet 00:00: [facility] THREE Medical TIMES A Branch DAY NEEDED FOR 30 DAYS amitriptyli 2023-0 Yes TAKE 1 Univ ers ne 50 mg 3-15 TABLET BY ity of tablet 00:00: [facility] cyclobenzap 2023-0 Yes TAKE 1 Univ ers rine 10 mg 3-15 TABLET BY ity of tablet 00:00: [facility] THREE Medical TIMES A Branch DAY NEEDED FOR 30 DAYS amitriptyli 2023-0 Yes TAKE 1 Univ ers ne 50 mg 3-15 TABLET BY ity of tablet 00:00: [facility] EVERY DAY Medical AT BEDTIME Branch FOR 30 DAYS cyclobenzap 2023-0 Yes TAKE 1 Univ ers rine 10 mg 3-15 TABLET BY ity of tablet 00:00: [facility] THREE Medical TIMES A Branch DAY NEEDED FOR 30 DAYS amitriptyli 2023-0 Yes TAKE 1 Univ ers ne 50 mg 3-15 TABLET BY ity of tablet 00:00: MOUTH EVERY DAY Medical AT BEDTIME [place] FOR 30 DAYS cyclobenzap 3-0 Yes TAKE 1 Univ ers rine 10 mg 3-15 TABLET BY ity of tablet 00:00: MOUTH THREE Medical TIMES A Branch DAY NEEDED FOR 30 DAYS amitriptyli 2023-0 Yes TAKE 1 Univ ers ne 50 mg 3-15 TABLET BY ity of tablet 00:00: [facility]TH [facility] cyclobenzap 3-0 Yes TAKE 1 Univ ers rine 10 mg 3-15 TABLET BY ity of tablet 00:00: MOUTH THREE Medical TIMES A Branch DAY NEEDED FOR 30 DAYS amitriptyli 3-0 Yes TAKE 1 Univ ers ne 50 mg 3-15 TABLET BY ity of tablet 00:00: [facility] EVERY DAY Medical AT [facility] FOR 30 DAYS cyclobenzap 3-0 Yes TAKE 1 Univ ers rine 10 mg 3-15 TABLET BY ity of tablet 00:00: [facility] THREE Medical TIMES A Branch DAY NEEDED FOR 30 DAYS amitriptyli 2023-0 Yes TAKE 1 Univ ers ne 50 mg 3-15 TABLET BY ity of tablet 00:00: [facility] EVERY DAY Medical AT [facility] FOR 30 DAYS cyclobenzap 3-0 Yes TAKE 1 Univ ers rine 10 mg 3-15 TABLET BY ity of tablet 00:00: [facility] THREE Medical TIMES A Branch DAY NEEDED FOR 30 DAYS amitriptyli 2023-0 Yes TAKE 1 Univ ers ne 50 mg 3-15 TABLET BY ity of tablet 00:00: [facility]TH [facility] cyclobenzap 2023-0 Yes TAKE 1 Univ ers rine 10 mg 3-15 TABLET BY ity of tablet 00:00: [facility] THREE Medical TIMES A Branch DAY NEEDED FOR 30 DAYS amitriptyli 2023-0 Yes TAKE 1 Univ ers ne 50 mg 3-15 TABLET BY ity of tablet 00:00: [facility] EVERY DAY Medical AT BEDTIME [place] FOR 30 DAYS cyclobenzap 2023-0 Yes TAKE 1 Univ ers rine 10 mg 3-15 TABLET BY ity of tablet 00:00: MOUTH [place] 00 THREE Medical TIMES A Branch DAY NEEDED FOR 30 DAYS amitriptyli 2023-0 Yes TAKE 1 Univ ers ne 50 mg 3-15 TABLET BY ity of tablet 00:00: [facility] EVERY DAY Medical AT BEDTIME [place] FOR 30 DAYS cyclobenzap 2023-0 Yes TAKE 1 Univ ers rine 10 mg 3-15 TABLET BY ity of tablet 00:00: [facility] THREE Medical TIMES A Branch DAY NEEDED FOR 30 DAYS amitriptyli 2023-0 Yes TAKE 1 Univ ers ne 50 mg 3-15 TABLET BY ity of tablet 00:00: [facility] EVERY DAY Medical AT [facility] Branch FOR 30 DAYS cyclobenzap 3-0 Yes TAKE 1 Univ ers rine 10 mg 3-15 TABLET BY ity of tablet 00:00: [facility] THREE Medical TIMES A Branch DAY NEEDED FOR 30 DAYS amitriptyli 2023-0 Yes TAKE 1 Univ ers ne 50 mg 3-15 TABLET BY ity of tablet 00:00: [facility] cyclobenzap 3-0 Yes TAKE 1 Univ ers rine 10 mg 3-15 TABLET BY ity of tablet 00:00: [facility] THREE Medical TIMES A Branch DAY NEEDED FOR 30 DAYS amitriptyli 3-0 Yes TAKE 1 Univ ers ne 50 mg 3-15 TABLET BY ity of tablet 00:00: [facility] cyclobenzap 3-0 Yes TAKE 1 Univ ers rine 10 mg 3-15 TABLET BY ity of tablet 00:00: [facility] THREE Medical TIMES A Branch DAY NEEDED FOR 30 DAYS amitriptyli 2023-0 Yes TAKE 1 Univ ers ne 50 mg 3-15 TABLET BY ity of tablet 00:00: [facility] EVERY DAY Medical AT BEDTIME [place] FOR 30 DAYS cyclobenzap 2023-0 Yes TAKE 1 Univ ers rine 10 mg 3-15 TABLET BY ity of tablet 00:00: [facility] THREE Medical TIMES A Branch DAY NEEDED FOR 30 DAYS amitriptyli 2023-0 Yes TAKE 1 Univ ers ne 50 mg 3-15 TABLET BY ity of tablet 00:00: [facility] EVERY DAY Medical AT BEDTIME Branch [...] 3-15 TABLET BY ity of tablet 00:00: [facility] THREE Medical TIMES A Branch DAY NEEDED FOR 30 DAYS amitriptyli 2023-0 Yes TAKE 1 Univ ers ne 50 mg 3-15 TABLET BY ity of tablet 00:00: [facility] EVERY DAY Medical AT BEDTIME Branch FOR 30 DAYS cyclobenzap 2023-0 Yes TAKE 1 Univ ers rine 10 mg 3-15 TABLET BY ity of tablet 00:00: MOUTH THREE Medical TIMES A Branch DAY NEEDED FOR 30 DAYS amitriptyli 2023-0 Yes TAKE 1 Univ ers ne 50 mg 3-15 TABLET BY ity of tablet 00:00: [facility] cyclobenzap 2023-0 Yes TAKE 1 Univ ers rine 10 mg 3-15 TABLET BY ity of tablet 00:00: [facility] THREE Medical TIMES A Branch DAY [...] 3-15 TABLET BY ity of tablet 00:00: [facility] EVERY DAY Medical AT BEDTIME Branch [...] 3-15 TABLET BY ity of tablet 00:00: [facility] EVERY DAY Medical AT BEDTIME [place] FOR 30 DAYS cyclobenzap 3-0 Yes TAKE 1 Univ ers rine 10 mg 3-15 TABLET BY ity of tablet 00:00: MOUTH THREE Medical TIMES A Branch DAY NEEDED FOR 30 DAYS amitriptyli 2023-0 Yes TAKE 1 Univ ers ne 50 mg 3-15 TABLET BY ity of tablet 00:00: [facility]OUTH [facility] cyclobenzap 3-0 Yes TAKE 1 Univ ers rine 10 mg 3-15 TABLET BY ity of tablet 00:00: MOUTH THREE Medical TIMES A Branch DAY NEEDED FOR 30 DAYS amitriptyli 2023-0 Yes TAKE 1 Univ ers ne 50 mg 3-15 TABLET BY ity of tablet 00:00: [facility] EVERY DAY Medical AT BEDTIME [place] FOR 30 DAYS cyclobenzap 2023-0 Yes TAKE [...] MOUTH [facility] cyclobenzap 3-0 Yes TAKE 1 Univ ers rine 10 mg 3-15 TABLET BY ity of tablet 00:00: MOUTH THREE Medical TIMES A Branch DAY NEEDED FOR 30 DAYS amitriptyli 2023-0 Yes TAKE 1 Univ ers ne 50 mg 3-15 TABLET BY ity of tablet 00:00: [facility] EVERY DAY Medical AT [facility] Branch FOR 30 DAYS cyclobenzap 2022-0 Yes TAKE 1 Univ ers rine 10 mg 3-15 TABLET BY ity of tablet 00:00: MOUTH THREE Medical TIMES A Branch DAY NEEDED FOR 30 DAYS amitriptyli 3-0 Yes TAKE 1 Univ ers ne 50 mg 3-15 TABLET BY ity of tablet 00:00: [facility] cyclobenzap 2022-0 Yes TAKE 1 Univ ers rine 10 mg 3-15 TABLET BY ity of tablet 00:00: [facility] THREE Medical TIMES A Branch DAY NEEDED FOR 30 DAYS amitriptyli 3-0 Yes TAKE 1 Univ ers ne 50 mg 3-15 TABLET BY ity of tablet 00:00: [facility] EVERY DAY Medical AT [facility] FOR 30 DAYS cyclobenzap 2022-0 Yes TAKE 1 Univ ers rine 10 mg 3-15 TABLET BY ity of tablet 00:00: [facility] THREE Medical TIMES A Branch DAY NEEDED FOR 30 DAYS amitriptyli 2023-0 Yes TAKE 1 Univ ers ne 50 mg 3-15 TABLET BY ity of tablet 00:00: [facility] cyclobenzap 3-0 Yes TAKE 1 Univ ers rine 10 mg 3-15 TABLET BY ity of tablet 00:00: [facility] THREE Medical TIMES A Branch DAY NEEDED FOR 30 DAYS amitriptyli 2023-0 Yes TAKE 1 Univ ers ne 50 mg 3-15 TABLET BY ity of tablet 00:00: [facility] EVERY DAY Medical AT BEDTIME Branch FOR 30 DAYS cyclobenzap 3-0 Yes TAKE 1 Univ ers rine 10 mg 3-15 TABLET BY ity of tablet 00:00: [facility] THREE Medical TIMES A Branch DAY [...] 00:00: MOUTH EVERY DAY Medical AT [facility] Branch FOR 30 DAYS cyclobenzap 3-0 Yes TAKE 1 Univ ers rine 10 mg 3-15 TABLET BY ity of tablet 00:00: MOUTH THREE Medical TIMES A Branch DAY NEEDED FOR 30 DAYS amitriptyli 3-0 Yes TAKE 1 Univ ers ne 50 mg 3-15 TABLET BY ity of tablet 00:00: [facility]TH [facility] cyclobenzap 3-0 Yes TAKE 1 Univ ers rine 10 mg 3-15 TABLET BY ity of tablet 00:00: MOUTH THREE Medical TIMES A Branch DAY NEEDED FOR 30 DAYS amitriptyli 2023-0 Yes TAKE 1 Univ ers ne 50 mg 3-15 TABLET BY ity of tablet 00:00: [facility] cyclobenzap 3-0 Yes TAKE 1 Univ ers rine 10 mg 3-15 TABLET BY ity of tablet 00:00: MOUTH THREE Medical TIMES A Branch DAY NEEDED FOR 30 DAYS amitriptyli 2023-0 Yes TAKE 1 Univ ers ne 50 mg 3-15 TABLET BY ity of tablet 00:00: MOUTH EVERY DAY Medical AT BEDTIME [place] FOR 30 DAYS cyclobenzap 3-0 Yes TAKE [...] Branch DAY NEEDED FOR 30 DAYS amitriptyli Yes TAKE 1 Univ ers ne 50 mg 3-15 TABLET BY ity of tablet 00:00: MOUTH [place] 00 [facility] cyclobenzap 2022-0 Yes TAKE 1 Univ ers rine 10 mg 3-15 TABLET BY ity of tablet 00:00: MOUTH 00 THREE Medical TIMES A Branch DAY NEEDED FOR 30 DAYS amitriptyli 0 Yes TAKE 1 Univ ers ne 50 mg 3-15 TABLET BY ity of tablet 00:00: MOUTH [place] 00 [facility] cyclobenzap 2022-0 Yes TAKE 1 Univ ers rine 10 mg 3-15 TABLET BY ity of tablet 00:00: MOUTH [place] 00 THREE Medical TIMES A Branch DAY NEEDED FOR 30 DAYS amitriptyli 0 Yes TAKE 1 Univ ers ne 50 mg 3-15 TABLET BY ity of tablet 00:00: MOUTH [place] 00 [facility] NaCl 0.9% 2022- No 500mL at 999 Univ ers (NS) bolus 11-03 mL/hr, 500 it y of infusion 15:45: 16:19 mL, IV [place] 500 mL 00 :00 [place], Medical ONCE, 1 Branch dose, On Wed11/03/22 at 0945, STAT LORazepam 0 2022- No 1mg 1 mg, Slow U nivers (ATIVAN) 11-03 IV Push, ity of injection 1 15:00: 15:23 [place]CE[place] 1 [place] mg 00 :[place] dose, On Medical [facility] Branch 11/03/22 at 0900, STAT diphenhydrA 0 2022- No 25mg 25 mg, Uni vers MINE 11-03 Slow IV ity of (BENADRYL) 15:00: 15:18 Push, [place] injection 00 :00 ONCE, 1 Medical 25 mg dose, On Branch Wed11/03/22 at 0900, STAT LORazepam 2022-0 Yes [id number] 1mg Take 1 U nivers (ATIVAN) 1 11-03 tablet by ity of mg tablet 00:00: mouth (two) Medical times Branch daily as needed for Anxiety or Agitation. hydrOXYzine 2023-0 Yes [id number] 25mg Take 1 Univers (VISTARIL) 2-28 capsule by ity of 25 mg 00:00: mouth 3 [place] capsule 00 (three) Medical times Branch daily as needed for Anxiety. LORazepam 2023-0 Yes [id number] 1mg Take 1 U nivers (ATIVAN) 1 2-28 tablet by ity of mg tablet 00:00: mouth 2 [place] 00 (two) Medical times Branch daily as needed for Anxiety or Agitation. hydrOXYzine 2023-0 Yes [id number] 25mg Take 1 Univers (VISTARIL) 2-28 capsule by ity of 25 mg 00:00: mouth 3 [place] capsule 00 (three) Medical times Branch daily as needed for Anxiety. LORazepam 2023-0 Yes [id number] 1mg Take 1 U nivers (ATIVAN) 1 2-28 tablet by ity of mg tablet 00:00: mouth 2 [place] 00 (two) Medical times Branch daily as needed for Anxiety or Agitation. hydrOXYzine 2023-0 Yes [id number] 25mg Take 1 Univers (VISTARIL) 2-28 capsule by ity of 25 mg 00:00: mouth 3 [place] capsule 00 (three) Medical times Branch daily as needed for Anxiety. LORazepam 2023-0 Yes [id number] 1mg Take 1 U nivers (ATIVAN) 1 2-28 tablet by ity of mg tablet 00:00: mouth 2 [place] 00 (two) Medical times Branch daily as needed for Anxiety or Agitation. hydrOXYzine 2023-0 Yes [id number] 25mg Take 1 Univers (VISTARIL) 2-28 capsule by ity of 25 mg 00:00: mouth 3 [place] capsule 00 (three) Medical times Branch daily as needed for Anxiety. LORazepam 2023-0 Yes [id number] 1mg Take 1 U nivers (ATIVAN) 1 2-28 tablet by ity of mg tablet 00:00: mouth 2 [place] 00 (two) Medical times Branch daily as needed for Anxiety or Agitation. hydrOXYzine 2023-0 Yes [id number] 25mg Take 1 Univers (VISTARIL) 2-28 capsule by ity of 25 mg 00:00: mouth 3 [place] capsule 00 (three) Medical times Branch daily as needed for Anxiety. LORazepam 2023-0 Yes [id number] 1mg Take 1 U nivers (ATIVAN) 1 2-28 tablet by ity of mg tablet 00:00: mouth 2 [place] 00 (two) Medical times Branch daily as needed for Anxiety or Agitation. hydrOXYzine 2023-0 Yes [id number] 25mg Take 1 Univers (VISTARIL) 2-28 capsule by ity of 25 mg 00:00: mouth 3 [place] capsule 00 (three) Medical times Branch daily as needed for Anxiety. LORazepam 2023-0 Yes [id number] 1mg Take 1 U nivers (ATIVAN) 1 2-28 tablet by ity of mg tablet 00:00: mouth 2 [place] 00 (two) Medical times Branch daily as needed for Anxiety or Agitation. hydrOXYzine 2023-0 Yes [id number] 25mg Take 1 Univers (VISTARIL) 2-28 capsule by ity of 25 mg 00:00: mouth 3 [place] capsule 00 (three) Medical times Branch daily as needed for Anxiety. LORazepam 2023-0 Yes [id number] 1mg Take 1 U nivers (ATIVAN) 1 2-28 tablet by ity of mg tablet 00:00: mouth 2 [place] 00 (two) Medical times Branch daily as needed for Anxiety or Agitation. hydrOXYzine 2023-0 Yes [id number] 25mg Take 1 Univers (VISTARIL) 2-28 capsule by ity of 25 mg 00:00: mouth 3 [place] capsule 00 (three) Medical times Branch daily as needed for Anxiety. LORazepam 2023-0 Yes [id number] 1mg Take 1 U nivers (ATIVAN) 1 2-28 tablet by ity of mg tablet 00:00: mouth 2 00 (two) Medical times Branch daily as needed for Anxiety or Agitation. hydrOXYzine 2023-0 Yes [id number] 25mg Take 1 Univers (VISTARIL) 2-28 capsule by ity of 25 mg 00:00: mouth 3 [place] capsule 00 (three) Medical times Branch daily as needed for Anxiety. LORazepam 2023-0 Yes [id number] 1mg Take 1 U nivers (ATIVAN) 1 2-28 tablet by ity of mg tablet 00:00: mouth 2 [place] 00 (two) Medical times Branch daily as needed for Anxiety or Agitation. hydrOXYzine 2023-0 Yes [id number] 25mg Take 1 Univers (VISTARIL) 2-28 capsule by ity of 25 mg 00:00: mouth 3 [place] capsule 00 (three) Medical times Branch daily as needed for Anxiety. LORazepam 2023-0 Yes [id number] 1mg Take 1 U nivers (ATIVAN) 1 2-28 tablet by ity of mg tablet 00:00: mouth 2 [place] 00 (two) Medical times Branch daily as needed for Anxiety or Agitation. hydrOXYzine 2023-0 Yes [id number] 25mg Take 1 Univers (VISTARIL) 2-28 capsule by ity of 25 mg 00:00: mouth 3 [place] capsule 00 (three) Medical times Branch daily as needed for Anxiety. LORazepam 2023-0 Yes [id number] 1mg Take 1 U nivers (ATIVAN) 1 2-28 tablet by ity of mg tablet 00:00: mouth 2 [place] 00 (two) Medical times Branch daily as needed for Anxiety or Agitation. hydrOXYzine 2023-0 Yes [id number] 25mg Take 1 Univers (VISTARIL) 2-28 capsule by ity of 25 mg 00:00: mouth 3 [place] capsule 00 (three) Medical times Branch daily as needed for Anxiety. LORazepam 2023-0 Yes [id number] 1mg Take 1 U nivers (ATIVAN) 1 2-28 tablet by ity of mg tablet 00:00: mouth 2 [place] 00 (two) Medical times Branch daily as needed for Anxiety or Agitation. hydrOXYzine 2023-0 Yes [id number] 25mg Take 1 Univers (VISTARIL) 2-28 capsule by ity of 25 mg 00:00: mouth 3 [place] capsule 00 (three) Medical times Branch daily as needed for Anxiety. LORazepam 2023-0 Yes [id number] 1mg Take 1 U nivers (ATIVAN) 1 2-28 tablet by ity of mg tablet 00:00: mouth 2 [place] 00 (two) Medical times Branch daily as needed for Anxiety or Agitation. hydrOXYzine 2023-0 Yes [id number] 25mg Take 1 Univers (VISTARIL) 2-28 capsule by ity of 25 mg 00:00: mouth 3 [place] capsule 00 (three) Medical times Branch daily as needed for Anxiety. LORazepam 2023-0 Yes [id number] 1mg Take 1 U nivers (ATIVAN) 1 2-28 tablet by ity of mg tablet 00:00: mouth 2 (two) Medical times Branch daily as needed for Anxiety or Agitation. hydrOXYzine 2023-0 Yes [id number] 25mg Take 1 Univers (VISTARIL) 2-28 capsule by ity of 25 mg 00:00: mouth 3 [place] capsule 00 (three) Medical times Branch daily as needed for Anxiety. LORazepam 2023-0 Yes [id number] 1mg Take 1 U nivers (ATIVAN) 1 2-28 tablet by ity of mg tablet 00:00: mouth 2 (two) Medical times Branch daily as needed for Anxiety or Agitation. hydrOXYzine 2023-0 Yes [id number] 25mg Take 1 Univers (VISTARIL) 2-28 capsule by ity of 25 mg 00:00: mouth 3 [place] capsule 00 (three) Medical times Branch daily as needed for Anxiety. LORazepam 2023-0 Yes [id number] 1mg Take 1 U nivers (ATIVAN) 1 2-28 tablet by ity of mg tablet 00:00: mouth 2 (two) Medical times Branch daily as needed for Anxiety or Agitation. hydrOXYzine 2023-0 Yes [id number] 25mg Take 1 Univers (VISTARIL) 2-28 capsule by ity of 25 mg 00:00: mouth 3 [place] capsule 00 (three) Medical times Branch daily as needed for Anxiety. LORazepam 2023-0 Yes [id number] 1mg Take 1 [facility] (ATIVAN) 1 2-28 tablet by ity of mg tablet 00:00: mouth 2 (two) Medical times Branch daily as needed for Anxiety or Agitation. hydrOXYzine 2023-0 Yes [id number] 25mg Take 1 [facility] (VISTARIL) 2-28 capsule by ity of 25 mg 00:00: mouth 3 [place] capsule 00 (three) Medical times Branch daily as needed for Anxiety. LORazepam 2023-0 Yes [id number] 1mg Take 1 [facility] (ATIVAN) 1 2-28 tablet by ity of mg tablet 00:00: mouth 2 00 (two) Medical times Branch daily as needed for Anxiety or Agitation. hydrOXYzine 2023-0 Yes [id number] 25mg Take 1 [facility] (VISTARIL) 2-28 capsule by ity of 25 mg 00:00: mouth 3 [place] capsule 00 (three) Medical times Branch daily as needed for Anxiety. LORazepam 2023-0 Yes [id number] 1mg Take 1 [facility] (ATIVAN) 1 2-28 tablet by ity of mg tablet 00:00: mouth 2 [place] 00 (two) Medical times Branch daily as needed for Anxiety or Agitation. hydrOXYzine 2023-0 Yes [id number] 25mg Take 1 [facility] (VISTARIL) 2-28 capsule by ity of 25 mg 00:00: mouth 3 [place] capsule 00 (three) Medical times Branch daily as needed for Anxiety. LORazepam 2023-0 Yes [id number] 1mg Take 1 [facility] (ATIVAN) 1 2-28 tablet by ity of mg tablet 00:00: mouth 2 [place] 00 (two) Medical times Branch daily as needed for Anxiety or Agitation. hydrOXYzine 2023-0 Yes [id number] 25mg Take 1 [facility] (VISTARIL) 2-28 capsule by ity of 25 mg 00:00: mouth 3 [place] capsule 00 (three) Medical times Branch daily as needed for Anxiety. LORazepam 2023-0 Yes [id number] 1mg Take 1 [facility] (ATIVAN) 1 2-28 tablet by ity of mg tablet 00:00: mouth 2 [place] 00 (two) Medical times Branch daily as needed for Anxiety or Agitation. hydrOXYzine 2023-0 Yes [id number] 25mg Take 1 [facility] (VISTARIL) 2-28 capsule by ity of 25 mg 00:00: mouth 3 [place] capsule 00 (three) Medical times Branch daily as needed for Anxiety. LORazepam 2023-0 Yes [id number] 1mg Take 1 [facility] (ATIVAN) 1 2-28 tablet by ity of mg tablet 00:00: mouth 2 [place] 00 (two) Medical times Branch daily as needed for Anxiety or Agitation. hydrOXYzine 2023-0 Yes [id number] 25mg Take 1 [facility] (VISTARIL) 2-28 capsule by ity of 25 mg 00:00: mouth 3 [place] capsule 00 (three) Medical times Branch daily as needed for Anxiety. LORazepam 2023-0 Yes [id number] 1mg Take 1 [facility] (ATIVAN) 1 2-28 tablet by ity of mg tablet 00:00: mouth 2 [place] 00 (two) Medical times Branch daily as needed for Anxiety or Agitation. hydrOXYzine 2023-0 Yes [id number] 25mg Take 1 [facility] (VISTARIL) 2-28 capsule by ity of 25 mg 00:00: mouth 3 [place] capsule 00 (three) Medical times Branch daily as needed for Anxiety. LORazepam 2023-0 Yes [id number] 1mg Take 1 [facility] (ATIVAN) 1 2-28 tablet by ity of mg tablet 00:00: mouth 2 [place] (two) Medical times Branch daily as needed for Anxiety or Agitation. LORazepam 2023-0 Yes [id number] 1mg Take 1 [facility] (ATIVAN) 1 2-28 tablet by ity of mg tablet 00:00: mouth 2 [place] (two) Medical times Branch daily as needed for Anxiety or Agitation. LORazepam 2023-0 Yes [id number] 1mg Take 1 [facility] (ATIVAN) 1 2-28 tablet by ity of mg tablet 00:00: mouth 2 [place] (two) Medical times Branch daily as needed for Anxiety or Agitation. LORazepam 2023-0 Yes [id number] 1mg Take 1 [facility] (ATIVAN) 1 2-28 tablet by ity of mg tablet 00:00: mouth 2 [place] (two) Medical times Branch daily as needed for Anxiety or Agitation. LORazepam 2023-0 Yes [id number] 1mg Take 1 [facility] (ATIVAN) 1 2-28 tablet by ity of mg tablet 00:00: mouth 2 [place] (two) Medical times Branch daily as needed for Anxiety or Agitation. LORazepam 2023-0 Yes [id number] 1mg Take 1 [facility] (ATIVAN) 1 2-28 tablet by ity of mg tablet 00:00: mouth 2 [place] (two) Medical times Branch daily as needed for Anxiety or Agitation. LORazepam 2023-0 Yes [id number] 1mg Take 1 [facility] (ATIVAN) 1 2-28 tablet by ity of mg tablet 00:00: mouth 2 [place] (two) Medical times Branch daily as needed for Anxiety or Agitation. LORazepam 2023-0 Yes [id number] 1mg Take 1 [facility] (ATIVAN) 1 2-28 tablet by ity of mg tablet 00:00: mouth 2 [place] (two) Medical times Branch daily as needed for Anxiety or Agitation. LORazepam 2023-0 Yes [id number] 1mg Take 1 [facility] (ATIVAN) 1 2-28 tablet by ity of mg tablet 00:00: mouth (two) Medical times Branch daily as needed for Anxiety or Agitation. LORazepam 2023-0 Yes [id number] 1mg Take 1 [facility] (ATIVAN) 1 2-28 tablet by ity of mg tablet 00:00: mouth (two) Medical times Branch daily as needed for Anxiety or Agitation. LORazepam 2023-0 Yes [id number] 1mg Take 1 [facility] (ATIVAN) 1 2-28 tablet by ity of mg tablet 00:00: mouth (two) Medical times Branch daily as needed for Anxiety or Agitation. LORazepam 2023-0 Yes [id number] 1mg Take 1 [facility] (ATIVAN) 1 2-28 tablet by ity of mg tablet 00:00: mouth (two) Medical times Branch daily as needed for Anxiety or Agitation. LORazepam 2023-0 Yes [id number] 1mg Take 1 [facility] (ATIVAN) 1 2-28 tablet by ity of mg tablet 00:00: mouth (two) Medical times Branch daily as needed for Anxiety or Agitation. LORazepam 2023-0 Yes [id number] 1mg Take 1 [facility] (ATIVAN) 1 2-28 tablet by ity of mg tablet 00:00: mouth (two) Medical times Branch daily as needed for Anxiety or Agitation. LORazepam 2023-0 Yes [id number] 1mg Take 1 [facility] (ATIVAN) 1 2-28 tablet by ity of mg tablet 00:00: mouth (two) Medical times Branch daily as needed for Anxiety or Agitation. LORazepam 2023-0 Yes [id number] 1mg Take 1 [facility] (ATIVAN) 1 2-28 tablet by ity of mg tablet 00:00: mouth (two) Medical times Branch daily as needed for Anxiety or Agitation. LORazepam 2023-0 Yes [id number] 1mg Take 1 [facility] (ATIVAN) 1 2-28 tablet by ity of mg tablet 00:00: mouth (two) Medical times Branch daily as needed for Anxiety or Agitation. LORazepam 2023-0 Yes [id number] 1mg Take 1 [facility] (ATIVAN) 1 2-28 tablet by ity of mg tablet 00:00: mouth 2 [place] 00 (two) Medical times Branch daily as needed for Anxiety or Agitation. LORazepam 2023-0 Yes [id number] 1mg Take 1 [facility] (ATIVAN) 1 2-28 tablet by ity of mg tablet 00:00: mouth 2 [place] 00 (two) Medical times Branch daily as needed for Anxiety or Agitation. LORazepam 2023-0 Yes [id number] 1mg Take 1 [facility] (ATIVAN) 1 2-28 tablet by ity of mg tablet 00:00: mouth 2 [place] 00 (two) Medical times Branch daily as needed for Anxiety or Agitation. hydrOXYzine 2023-0 Yes [id number] 25mg Take 1 [facility] (VISTARIL) 2-28 capsule by ity of 25 mg 00:00: mouth 3 [place] capsule 00 (three) Medical times Branch daily as needed for Anxiety. LORazepam 2023-0 Yes [id number] 1mg Take 1 [facility] (ATIVAN) 1 2-28 tablet by ity of mg tablet 00:00: mouth 2 (two) Medical times Branch daily as needed for Anxiety or Agitation. hydrOXYzine 2023-0 Yes [id number] 25mg Take 1 [facility] (VISTARIL) 2-28 capsule by ity of 25 mg 00:00: mouth 3 [place] capsule 00 (three) Medical times Branch daily as needed for Anxiety. LORazepam 2023-0 Yes [id number] 1mg Take 1 [facility] (ATIVAN) 1 2-28 tablet by ity of mg tablet 00:00: mouth 2 00 (two) Medical times Branch daily as needed for Anxiety or Agitation. hydrOXYzine 2023-0 Yes [id number] 25mg Take 1 [facility] (VISTARIL) 2-28 capsule by ity of 25 mg 00:00: mouth 3 [place] capsule 00 (three) Medical times Branch daily as needed for Anxiety. LORazepam 2023-0 Yes [id number] 1mg Take 1 [facility] (ATIVAN) 1 2-28 tablet by ity of mg tablet 00:00: mouth 2 [place] 00 (two) Medical times Branch daily as needed for Anxiety or Agitation. hydrOXYzine 2023-0 Yes [id number] 25mg Take 1 [facility] (VISTARIL) 2-28 capsule by ity of 25 mg 00:00: mouth 3 [place] capsule 00 (three) Medical times Branch daily as needed for Anxiety. LORazepam 2023-0 Yes [id number] 1mg Take 1 [facility] (ATIVAN) 1 2-28 tablet by ity of mg tablet 00:00: mouth 2 [place] 00 (two) Medical times Branch daily as needed for Anxiety or Agitation. hydrOXYzine 2023-0 Yes [id number] 25mg Take 1 [facility] (VISTARIL) 2-28 capsule by ity of 25 mg 00:00: mouth 3 [place] capsule 00 (three) Medical times Branch daily as needed for Anxiety. LORazepam 2023-0 Yes [id number] 1mg Take 1 [facility] (ATIVAN) 1 2-28 tablet by ity of mg tablet 00:00: mouth 2 [place] 00 (two) Medical times Branch daily as needed for Anxiety or Agitation. hydrOXYzine 2023-0 Yes [id number] 25mg Take 1 [facility] (VISTARIL) 2-28 capsule by ity of 25 mg 00:00: mouth 3 [place] capsule 00 (three) Medical times Branch daily as needed for Anxiety. LORazepam 3-0 Yes [id number] 1mg Take 1 [facility] (ATIVAN) 1 2-28 tablet by ity of mg tablet 00:00: mouth 2 [place] 00 (two) Medical times Branch daily as needed for Anxiety or Agitation. hydrOXYzine 2023-0 Yes [id number] 25mg Take 1 [facility] (VISTARIL) 2-28 capsule by ity of 25 mg 00:00: mouth 3 [place] capsule 00 (three) Medical times Branch daily as needed for Anxiety. LORazepam 2023-0 Yes [id number] 1mg Take 1 [facility] (ATIVAN) 1 2-28 tablet by ity of mg tablet 00:00: mouth 2 [place] 00 (two) Medical times Branch daily as needed for Anxiety or Agitation. hydrOXYzine 2023-0 Yes [id number] 25mg Take 1 [facility] (VISTARIL) 2-28 capsule by ity of 25 mg 00:00: mouth 3 [place] capsule 00 (three) Medical times Branch daily as needed for Anxiety. hydrOXYzine 2023-0 2023- No [id number] 25mg Take 1 [facility] (VISTARIL) 2-28 06-27 capsule by it y of 25 mg 00:00: 00:00 mouth 3 [place] capsule 00 :00 (three) Medical times Branch daily as needed for Anxiety. hydrOXYzine 2022- No [id number] 25mg Take 1 [facility] (VISTARIL) 11-03- capsule by it y of 25 mg 00:00: 00:00 mouth 3 [place] capsule 00 :00 (three) Medical times Branch daily as needed for Anxiety. iopamidol 2022- No [id number] 75mL 75 mL, [facility] (ISOVUE 10-13 Intravenou ity o f 370-500 mL) 09:30: 21:29 s, ONCE, 1 [place] injection 00 :00 dose, On Medica l 75 mL 10/13/22 Branch at 0330, Routine dicyclomine 2022- No 20mg 20 mg, Uni vers (BENTYL) 10-13 Intramuscu ity of injection 09:15: 21:14 [place], ONCE, [place] 20 mg 00 :00 1 dose, On Medical e 10/13/22 Branch at 0315, Routine famotidine Yes TAKE 1 Unive rs 20 mg 1-25 TABLET BY ity of tablet 00:00: MOUTH IN [place] [address] THE [facility] MORNING [place] AND IN THE EVENING FOR 5 DAYS famotidine 2022-0 Yes TAKE 1 Unive rs 20 mg 1-25 TABLET BY ity of tablet 00:00: MOUTH IN [place] [address] THE [facility] MORNING [place] AND IN THE EVENING FOR 5 DAYS famotidine 2022-0 Yes TAKE 1 Unive rs 20 mg 1-25 TABLET BY ity of tablet 00:00: MOUTH IN [address] MORNING Branch AND IN THE EVENING FOR 5 DAYS famotidine 2022-0 Yes TAKE 1 Unive rs 20 mg 1-25 TABLET BY ity of tablet 00:00: MOUTH IN [place] [address] THE [facility] MORNING Branch AND IN THE EVENING FOR 5 DAYS famotidine 2022-0 Yes TAKE 1 Unive rs 20 mg 1-25 TABLET BY ity of tablet 00:00: MOUTH IN [address] MORNING [place] AND IN THE EVENING FOR 5 DAYS famotidine 2022-0 Yes TAKE 1 Unive rs 20 mg 1-25 TABLET BY ity of tablet 00:00: MOUTH IN [place] 00 THE Medical MORNING Branch AND IN THE EVENING FOR 5 DAYS famotidine Yes TAKE 1 Unive rs 20 mg 1-25 TABLET BY ity of tablet 00:00: MOUTH IN [place] 00 THE Medical MORNING Branch AND IN THE EVENING FOR 5 DAYS famotidine Yes TAKE 1 Unive rs 20 mg 1-25 TABLET BY ity of tablet 00:00: MOUTH IN [place] THE Medical MORNING Branch AND IN THE EVENING FOR 5 DAYS famotidine 0 Yes TAKE 1 Unive rs 20 mg 1-25 TABLET BY ity of tablet 00:00: MOUTH IN [place] 00 THE Medical MORNING Branch AND IN THE EVENING FOR 5 DAYS famotidine Yes TAKE 1 Unive rs 20 mg 1-25 TABLET BY ity of tablet 00:00: MOUTH IN [place] [address] THE Medical MORNING Branch AND IN THE EVENING FOR 5 DAYS famotidine Yes TAKE 1 [facility]ive rs 20 mg 1-25 TABLET BY ity of tablet 00:00: MOUTH IN [place] [address] THE Medical MORNING Branch AND IN THE EVENING FOR 5 DAYS famotidine 0 Yes TAKE 1 Unive rs 20 mg 1-25 TABLET BY ity of tablet 00:00: MOUTH IN [place] [address] THE Medical MORNING Branch AND IN THE EVENING FOR 5 DAYS famotidine 2022- No TAKE 1 Univ ers 20 mg 1-25 05-12 TABLET BY ity of tablet 00:00: 00:00 MOUTH IN [place] 00 :00 THE Medical MORNING Branch AND [...] at 1830, 1 mL predniSONE 2022- No [id number] 40mg Take 2 [facility] 20 mg 09-10 tablets by ity of tablet 00:00: 05:59 mouth in [place] 00 :00 the Medical morning Branch for 5 days. famotidine 2022- No [id number] 20mg Take 1 [facility] (PEPCID) 20 1 01-10 tablet by it y of mg tablet 00:00: 05:59 mouth in [place] 00 :00 the Medical morning Branch and 1 tablet in the evening. Do all this for 5 days. HYDROcodone 2021-09- No 1{tbl} 1 tablet, [facility] -acetaminop 10-20 12- Oral, ity of hen (NORCO) 00:00: 22:59 ONCE, 1 [place] 10-325 mg 00 :00 dose, On Medica l tablet 1 e Branch tablet 08/18/22 at 1800, Routine oseltamivir 2021-09- No [id number] 75mg Take 1 [facility] (TAMIFLU) 10-19 capsule by ity of 75 mg 00:00: 05:59 mouth in [place] capsule 00 :00 the Medical morning Branch [...] 00:00: mouth. Medical tablet Branch oxyCODONE 5 2-0 Yes 5mg Take 1 [facility] ers mg 9-28 tablet by ity of immediate 00:00: mouth. [place] release 00 Medical tablet Branch oxyCODONE 5 2-0 Yes 5mg Take 1 Univ ers mg 9-28 tablet by ity of immediate 00:00: mouth. [place] release Medical tablet Branch oxyCODONE 5 2-0 Yes 5mg Take 1 Univ ers mg 9-28 tablet by ity of immediate 00:00: mouth. [place] release Medical tablet Branch oxyCODONE 5 2-0 Yes 5mg Take 1 [facility] ers mg 9-28 tablet by ity of immediate 00:00: mouth. [place] release Medical tablet Branch oxyCODONE 5 2-0 Yes 5mg Take 1 Univ ers mg 9-28 tablet by ity of immediate 00:00: mouth. [place] release Medical tablet Branch oxyCODONE 5 2-0 Yes 5mg Take 1 [facility] ers mg 9-28 tablet by ity of immediate 00:00: mouth. [place] release Medical tablet Branch oxyCODONE 5 2-0 Yes 5mg Take 1 Univ ers mg 9-28 tablet by ity of immediate 00:00: mouth. [place] release Medical tablet Branch oxyCODONE 5 2021-0 Yes 5mg Take 1 Univ ers mg 9-28 tablet by ity of immediate 00:00: mouth. [place] release Medical tablet Branch oxyCODONE 5 2-0 Yes 5mg Take 1 Univ ers mg 9-28 tablet by ity of immediate 00:00: mouth. [place] release 00 Medical tablet Branch oxyCODONE 5 2-0 Yes 5mg Take 1 Univ ers mg 9-28 tablet by ity of immediate 00:00: mouth. [place] release 00 Medical tablet Branch oxyCODONE 5 2-0 Yes 5mg Take 1 Univ ers mg 9-28 tablet by ity of immediate 00:00: mouth. [place] release 00 Medical tablet Branch oxyCODONE 5 2-0 Yes 5mg Take 1 Univ ers mg 9-28 tablet by ity of immediate 00:00: mouth. [place] release 00 Medical tablet Branch oxyCODONE 5 2-0 Yes 5mg Take 1 Univ ers mg [...] mouth. Medical tablet Branch oxyCODONE 5 2021-0 2023- No 5mg Take 1 Uni vers mg 9-28 10-05 tablet by ity of immediate 00:00: 00:00 mouth. 00 :00 Medical tablet Branch oxyCODONE 5 2021-0 2023- No 5mg Take 1 Uni vers mg 9-28 10-05 tablet by ity of immediate 00:00: 00:00 mouth. 00 :00 Medical tablet Branch naproxen 2021-0 Yes naproxen [...] 500 mg ity of tablet 00:00: tablet [place] [facility] Branch naproxen 2021-0 Yes naproxen Unive rs 500 mg 9-16 500 mg ity of tablet 00:00: tablet Medical Branch naproxen 2021-0 Yes naproxen Unive rs 500 mg 9-16 500 mg ity of tablet 00:00: tablet [place] [facility] naproxen 2021-0 Yes naproxen Unive rs 500 mg 9-16 500 mg ity of tablet 00:00: tablet [place] [facility] naproxen 2021-0 Yes naproxen Unive rs 500 mg 9-16 500 mg ity of tablet 00:00: tablet [place] [facility] naproxen 2021-0 Yes naproxen Unive rs 500 mg 9-16 500 mg ity of tablet 00:00: tablet [place] [facility] naproxen 2021-0 2023- No naproxen Univ ers 500 mg 9-16 05-12 500 mg ity of tablet 00:00: 00:00 tablet [place] 00 :00 Medical Branch prazosin 2 2021-0 Yes 2mg Take 1 Unive rs mg capsule 9-15 capsule by ity of 00:00: mouth. [place] [facility] prazosin 2 2021-0 Yes 2mg Take 1 Unive rs mg capsule 9-15 capsule by ity of 00:00: mouth. [place] [facility] prazosin 2 2021-0 Yes 2mg Take 1 Unive rs mg capsule 9-15 capsule by ity of 00:00: mouth. [place] [facility] prazosin 2 2021-0 Yes 2mg Take 1 Unive rs mg capsule 9-15 capsule by ity of 00:00: mouth. [place] [facility] prazosin 2 2021-0 Yes 2mg Take 1 Unive rs mg capsule 9-15 capsule by ity of 00:00: mouth. [place] [facility] prazosin 2 2021-0 Yes 2mg Take 1 Unive rs mg capsule 9-15 capsule by ity of 00:00: mouth. [place] [facility] prazosin 2 2021-0 Yes 2mg Take 1 Unive rs mg capsule 9-15 capsule by ity of 00:00: mouth. [place] [facility] prazosin 2 2021-0 Yes 2mg [...] by it y of 00:00: 00:00 mouth. 00 :00 Medical Branch naloxone 4 2021-0 [...] patch 00 patch Medical Branch naloxone 4 2021- Yes CALL 911. Un travis mg/actuatio 8-25 [...] 00 patch Medical Branch naloxone 4 0 2022- No CALL 911. U nivers mg/actuatio 8-25 [...] mg Tab 00:00: 00 Medical Branch naloxegoL 2022-0 Yes [facility] (MOVANTIK) 8-23 ity of 12.5 [...] [place] 00 Medical Branch HYDROcodone 2021- No [id number] 1{tbl} Q6H Take 1 [facility] -acetaminop 5-17 05-[address] [facility] ([facility]) 13:50: 00:00 mouth [facility] 10-325 mg 15 :00 every 6 l per tablet (six) hours as needed .acute pain. prn HYDROcodone 2021- No [id number] 1{tbl} Q6H Take 1 [facility] -acetaminop 5-17 05-[address] [facility] ([facility]) 13:50: 00:00 mouth [facility] 10-325 mg 15 :00 every 6 l per tablet (six) hours as needed .acute pain. prn HYDROcodone 2021- No [id number] 1{tbl} Q6H Take 1 [facility] -acetaminop 5-17 05-[address] [facility] ([facility]) 13:50: 00:00 mouth [facility] 10-325 mg 15 :00 every 6 l per tablet (six) hours as needed .acute pain. prn HYDROcodone 2021- No [id number] 1{tbl} Q6H Take 1 [facility] -acetaminop 5-17 05-[address] [facility]) 13:50: 00:00 mouth [facility] 10-325 mg 15 :00 every 6 l per tablet (six) hours as needed .acute pain. prn [place]DROcodone 2021- No [id number] 1{tbl} Q6H Take 1 [facility] -acetaminop 5-17 05-[address] [facility] ([facility]) 13:50: 00:00 mouth [facility] 10-325 mg [...] a 39 times a l day. adalimumab 2022-0 Yes 40mg Q1W Inject 40 [facility] (Humira) 40 5-[address] mg/0.8 mL 13:10: the skin [facility] injection 03 every 7 l days. buPROPion 2022-0 Yes 300mg QD Take 300 [facility] XL 5-[address] ([facility]IN 13:10: mouth Hos[facility] ta XL) 300 MG 03 every l 24 hr morning. tablet buPROPion 2022-0 Yes 300mg QD Take 300 [...] 7 l days. cyclobenzap 2022-0 Yes 10mg Q.[id number] Take 10 mg Methodi rine 5-17 [id number] [facility] [address] (FLEXERIL) 13:09: 3D [...] every 12 l (twelve) hours as needed. diazePAM 2022-0 Yes 10mg Q12H Take 10 mg [facility] (VALIUM) 10 5-[address] MG tablet 13:09: every 12 [facility] 39 (twelve) l hours as needed for anxiety. meloxicam 2022-0 Yes 7.5mg Q12H Take 7.5 [facility] (MOBIC) 7.5 5-[address] mg tablet 13:09: mouth [facility] 39 every 12 l (twelve) hours as needed. cyclobenzap 2022-0 Yes 10mg Q.[id number] Take 10 mg Methodi rine 5-17 [id number] mouth [address] (FLEXERIL) 13:09: 3D [...] hours as needed. cyclobenzap 2022-0 Yes 10mg Q.[id number] Take 10 mg Methodi rine 5-17 [id number] [facility] [address] (FLEXERIL) 13:09: 3D [...] hours as needed. cyclobenzap 2022-0 Yes 10mg Q.[id number] Take 10 mg Methodi rine 5-17 [id number] by mouth [address] (FLEXERIL) 13:09: 3D [...] hours as needed. cyclobenzap 2022-0 Yes 10mg Q.[id number] Take 10 mg Methodi rine 5-17 [id number] [facility] [address] (FLEXERIL) 13:09: 3D [...] hours as needed. cyclobenzap 2022-0 Yes 10mg Q.[id number] Take 10 mg Methodi rine 5-17 [id number] [facility] [address] (FLEXERIL) 13:09: 3D [...] hours as needed. cyclobenzap 2022-0 Yes 10mg Q.[id number] Take 10 mg Methodi rine 5-17 [id number] [facility] [address] (FLEXERIL) 13:09: 3D [...] hours as needed. cyclobenzap 2022-0 Yes 10mg Q.[id number] Take 10 mg Methodi rine 5-[id number] [facility] [address] (FLEXERIL) 13:09: 3D [...] hours as needed. cyclobenzap 2022-0 Yes 10mg Q.[id number] Take 10 mg Methodi rine 5-[id number] [facility] [address] (FLEXERIL) 13:09: 3D [...] hours as needed. cyclobenzap 2022-0 Yes 10mg Q.[id number] Take 10 mg Methodi rine 5-[id number] [facility] [address] (FLEXERIL) 13:09: 3D [...] hours as needed. cyclobenzap 2022-0 Yes 10mg Q.[id number] Take 10 mg Methodi rine 5-[id number] [facility] [address] (FLEXERIL) 13:09: 3D [...] hours as needed. cyclobenzap 2022-0 Yes 10mg Q.[id number] Take 10 mg Methodi rine 5-[id number] [facility] [address] (FLEXERIL) 13:09: 3D [...] hours as needed. cyclobenzap 2022-0 Yes 10mg Q.[id number] Take 10 mg Methodi rine 5-[id number] [facility] [address] (FLEXERIL) 13:09: 3D (three) [facility] 10 mg 39 times a l tablet day as needed for muscle spasms. diazePAM 2-0 Yes 10mg Q12H Take 10 mg [facility] (VALIUM) 10 5-[address] MG tablet 13:09: every 12 [facility] 39 (twelve) l hours as needed for anxiety. meloxicam 2021-0 Yes 7.5mg Q12H Take 7.5 [facility] (MOBIC) 7.5 5-[address] mg tablet 13:09: mouth [facility] 39 every 12 l (twelve) hours as needed. cyclobenzap 2021-0 Yes 10mg Q.[id number] Take 10 mg Methodi rine 5-17 [id number] [facility] [address] (FLEXERIL) 13:09: 3D (three) [facility] 10 mg 39 times a l tablet day as needed for muscle spasms. HYDROcodone 2021-0 2021- No [id number] 1{tbl} Q6H Take 1 [facility] -acetaminop 5-17 06-17 tablet by [employer] ([facility]) 00:00: 04:59 mouth [facility] 10-325 mg 00 :00 every 6 l per tablet (six) hours as needed for severe pain for up to 30 days .chronic pain. prn Max Daily Amount: 4 tablets HYDROcodone 2021-0 2021- No [id number] 1{tbl} Q6H Take 1 [facility] -acetaminop 5-17 06-[address] [facility] ([facility]) 00:00: 04:59 mouth [facility] 10-325 mg 00 :00 every 6 l per tablet (six) hours as needed for severe pain for up to 30 days .chronic pain. prn Max Daily Amount: 4 tablets HYDROcodone 2022-0 2021- [place] [id number] 1{tbl} Q6H Take 1 [facility] -acetaminop 5-17 06-17 tablet by [employer] ([facility]) 00:00: 04:59 mouth [facility] 10-325 mg 00 :00 every 6 l per tablet (six) hours as needed for severe pain for up to 30 days .chronic pain. prn Max Daily Amount: 4 tablets HYDROcodone 2021-0 2021- No [id number] 1{tbl} Q6H Take 1 [facility] -acetaminop 5-17 06-[address] [facility] ([facility]) 00:00: 04:59 mouth [facility] 10-325 mg 00 :00 every 6 l per tablet (six) hours as needed for severe pain for up to 30 days .chronic pain. prn Max Daily Amount: 4 tablets HYDROcodone 2021-0 2021- No [id number] 1{tbl} Q6H Take 1 [facility] -acetaminop 5-17 06-[address] [facility] ([facility]) 00:00: 04:59 mouth [facility] 10-325 mg 00 :00 every 6 l per tablet (six) hours as needed for severe pain for up to 30 days .chronic pain. prn Max Daily Amount: 4 tablets HYDROcodone 2021-0 2021- [place] [id number] 1{tbl} Q6H Take 1 [facility] -acetaminop 5-17 06-[address] [facility] ([facility]) 00:00: 04:59 mouth [facility] 10-325 mg 00 :00 every 6 l per tablet (six) hours as needed for severe pain for up to 30 days .chronic pain. prn Max Daily Amount: 4 tablets HYDROcodone 2021-0 2021- [place] [id number] 1{tbl} Q6H Take 1 [facility] -acetaminop 5-17 06-[address] [facility] ([facility]) 00:00: 04:59 mouth [facility] 10-325 mg [...] up to 60 days. diazePAM 2020-09- No [id number] 10mg Q12H Take 1 [facility] (VALIUM) 10 10-15- tablet (10 s t MG tablet 00:00: 05:59 mg total) [facility] 00 :00 by mouth l every 12 (twelve) hours as needed for anxiety for up to 30 days. diazePAM 2020-09- No [id number] 10mg Q12H Take 1 [facility] (VALIUM) 10 10-15- tablet (10 s t MG tablet 00:00: 05:59 mg total) [facility] 00 :00 by mouth l every 12 (twelve) hours as needed for anxiety for up to 30 days. diazePAM 2020-09- No [id number] 10mg Q12H Take 1 [facility] (VALIUM) 10 10-15 tablet (10 s t MG tablet 00:00: 05:59 mg total) [facility] 00 :00 by mouth l every 12 (twelve) hours as needed for anxiety for up to 30 days. diazePAM 2020-09- No [id number] 10mg Q12H Take 1 [facility] (VALIUM) [...] Q12H Take 1 Method i (VALIUM) 10 10-14-09 tablet (10 s t MG tablet 00:00: [...] Q12H Take 1 [facility] i (VALIUM) 10 10-14-09 tablet (10 s t MG tablet 00:00: [...] as needed for anxiety. diazePAM 2020-09- No [id number] 10mg Q12H Take 1 [facility] (VALIUM) 10 09-09 12-05 tablet (10 s t MG tablet 00:00: 05:59 mg total) [facility] 00 :00 by mouth l every 12 (twelve) hours as needed for anxiety for up to 30 days. diazePAM 2020-09- No [id number] 10mg Q12H Take 1 [facility] (VALIUM) 10 09-09 12-05 tablet (10 s t MG tablet 00:00: 05:59 mg total) [facility] 00 :00 by mouth l every 12 (twelve) hours as needed for anxiety for up to 30 days. diazePAM 2020-09- No [id number] 10mg Q12H Take 1 [facility] (VALIUM) 10 09-09 12-05 tablet (10 s t MG tablet 00:00: 05:59 mg total) [facility] 00 :00 by mouth l every 12 (twelve) hours as needed for anxiety for up to 30 days. diazePAM 2020-09- No [id number] 10mg Q12H Take 1 [facility] (VALIUM) 10 09-09 12-05 tablet (10 s t MG tablet 00:00: 05:59 mg total) [facility] 00 :00 by mouth l every 12 (twelve) hours as needed for anxiety for up to 30 days. azithromyci 2020-09- No [id number] 250mg QD Take 1 [facility] (Zithromax 00:00: 00:00 (250 mg [facility] teddy Z-Ok) 250 00 :00 total) by l MG tablet mouth daily. Take 2 tablets the first day, then 1 tablet daily for 4 days. pantoprazol Yes [id number] 40mg Take 1 [facility] by [facility] (PROTONIX) 00:00: mouth [place] 40 mg EC 00 daily. [facility] tablet Branch dicyclomine Yes [id number] 20mg Take 1 [facility] 20 mg 4-18 tablet by [facility] tablet 00:00: mouth [place] 00 every 6 Medical (six) Branch hours as needed for Abdominal pain. ondansetron 2020-0 Yes [id number] 4mg Take 1 [facility] (ZOFRAN) 4 4-18 tablet by [facility] mg tablet 00:00: mouth [place] 00 every 8 Medical (eight) Branch hours as needed for Nausea and Vomiting (N/V). pantoprazol 2020-0 Yes [id number] 40mg Take 1 [facility] 4[facility] tablet by [facility] (PROTONIX) 00:00: mouth [place] 40 mg EC 00 daily. Medical tablet Branch dicyclomine 2020-0 Yes [id number] 20mg Take 1 [facility] 20 mg 4-18 tablet by [facility] tablet 00:00: mouth [place] 00 every 6 Medical (six) Branch hours as needed for Abdominal pain. ondansetron 2020-0 Yes [id number] 4mg Take 1 [facility] (ZOFRAN) 4 4-18 tablet by [facility] mg tablet 00:00: mouth [place] 00 every 8 Medical (eight) Branch hours as needed for Nausea and Vomiting (N/V). pantoprazol 2020-0 Yes [id number] 40mg Take 1 [facility] 4[facility] tablet by [facility] (PROTONIX) 00:00: mouth [place] 40 mg EC 00 daily. Medical tablet Branch dicyclomine 2020-0 Yes [id number] 20mg Take 1 [facility] 20 mg 4-18 tablet by [facility] tablet 00:00: mouth [place] 00 every 6 Medical (six) Branch hours as needed for Abdominal pain. ondansetron 2020-0 Yes [id number] 4mg Take 1 [facility] (ZOFRAN) 4 4-18 tablet by [facility] mg tablet 00:00: mouth [place] 00 every 8 Medical (eight) Branch hours as needed for Nausea and Vomiting (N/V). pantoprazol 2020-0 Yes [id number] 40mg Take 1 [facility] 4[facility]18 tablet by [facility] (PROTONIX) 00:00: mouth [place] 40 mg EC 00 daily. Medical tablet Branch dicyclomine 2020-0 Yes [id number] 20mg Take 1 [facility] 20 mg 4-18 tablet by [facility] tablet 00:00: mouth [place] 00 every 6 Medical (six) Branch hours as needed for Abdominal pain. ondansetron 2020-0 Yes [id number] 4mg Take 1 [facility] (ZOFRAN) 4 4-18 tablet by [facility] mg tablet 00:00: mouth [place] 00 every 8 Medical (eight) Branch hours as needed for Nausea and Vomiting (N/V). pantoprazol 2020-0 Yes [id number] 40mg Take 1 [facility] 4[facility]18 tablet by [facility] (PROTONIX) 00:00: mouth [place] 40 mg EC 00 daily. Medical tablet Branch dicyclomine 2020-0 Yes [id number] 20mg Take 1 [facility] 20 mg 4-18 tablet by [facility] tablet 00:00: mouth [place] 00 every 6 Medical (six) Branch hours as needed for Abdominal pain. ondansetron 2020-0 Yes [id number] 4mg Take 1 [facility] (ZOFRAN) 4 4-18 tablet by [facility] mg tablet 00:00: mouth [place] 00 every 8 Medical (eight) Branch hours as needed for Nausea and Vomiting (N/V). pantoprazol 2020-0 Yes [id number] 40mg Take 1 [facility] 4[facility]18 tablet by [facility] (PROTONIX) 00:00: mouth [place] 40 mg EC 00 daily. Medical tablet Branch dicyclomine 2020-0 Yes [id number] 20mg Take 1 [facility] 20 mg 4-18 tablet by [facility] tablet 00:00: mouth [place] 00 every 6 Medical (six) Branch hours as needed for Abdominal pain. ondansetron 2020-0 Yes [id number] 4mg Take 1 [facility] (ZOFRAN) 4 4-18 tablet by [facility] mg tablet 00:00: mouth [place] 00 every 8 Medical (eight) Branch hours as needed for Nausea and Vomiting (N/V). pantoprazol 2020-0 Yes [id number] 40mg Take 1 [facility] 4-18 tablet by [facility] (PROTONIX) 00:00: mouth [place] 40 mg EC 00 daily. Medical tablet Branch dicyclomine 2020-0 Yes [id number] 20mg Take 1 [facility] 20 mg 4-18 tablet by [facility] of tablet 00:00: mouth [place] 00 every 6 Medical (six) Branch hours as needed for Abdominal pain. ondansetron 2020-0 Yes [id number] 4mg Take 1 [facility] (ZOFRAN) 4 4-18 tablet by [facility] of mg tablet 00:00: mouth [place] 00 every 8 Medical (eight) Branch hours as needed for Nausea and Vomiting (N/V). pantoprazol 2020-0 Yes [id number] 40mg Take 1 [facility] 4-18 tablet by [facility] (PROTONIX) 00:00: mouth [place] 40 mg EC 00 daily. Medical tablet Branch dicyclomine 2020-0 Yes [id number] 20mg Take 1 [facility] 20 mg 4-18 tablet by [facility] tablet 00:00: mouth [place] 00 every 6 Medical (six) Branch hours as needed for Abdominal pain. ondansetron 2020-0 Yes [id number] 4mg Take 1 [facility] (ZOFRAN) 4 4-18 tablet by [facility] of mg tablet 00:00: mouth [place] 00 every 8 Medical (eight) Branch hours as needed for Nausea and Vomiting (N/V). pantoprazol 2020-0 Yes [id number] 40mg Take 1 [facility] 4-18 tablet by [facility] (PROTONIX) 00:00: mouth [place] 40 mg EC 00 daily. Medical tablet Branch dicyclomine 2020-0 Yes [id number] 20mg Take 1 [facility] 20 mg 4-18 tablet by [facility] tablet 00:00: mouth [place] 00 every 6 Medical (six) Branch hours as needed for Abdominal pain. ondansetron 2020-0 Yes [id number] 4mg Take 1 [facility] (ZOFRAN) 4 4-18 tablet by [facility] mg tablet 00:00: mouth [place] 00 every 8 Medical (eight) Branch hours as needed for Nausea and Vomiting (N/V). pantoprazol 2020-0 Yes [id number] 40mg Take 1 [facility] 4-18 tablet by [facility] (PROTONIX) 00:00: mouth [place] 40 mg EC 00 daily. Medical tablet Branch dicyclomine 2020-0 Yes [id number] 20mg Take 1 [facility] 20 mg 4-18 tablet by [facility] tablet 00:00: mouth [place] 00 every 6 Medical (six) Branch hours as needed for Abdominal pain. ondansetron 2020-0 Yes [id number] 4mg Take 1 [facility] (ZOFRAN) 4 4-18 tablet by [facility] of mg tablet 00:00: mouth [place] 00 every 8 Medical (eight) Branch hours as needed for Nausea and Vomiting (N/V). pantoprazol 2020-0 Yes [id number] 40mg Take 1 [facility] 4-18 tablet by [facility] (PROTONIX) 00:00: mouth [place] 40 mg EC 00 daily. Medical tablet Branch dicyclomine 2020-0 Yes [id number] 20mg Take 1 [facility] 20 mg 4-18 tablet by [facility] tablet 00:00: mouth [place] 00 every 6 Medical (six) Branch hours as needed for Abdominal pain. ondansetron 2020-0 Yes [id number] 4mg Take 1 [facility] (ZOFRAN) 4 4-18 tablet by [facility] of mg tablet 00:00: mouth [place] 00 every 8 Medical (eight) Branch hours as needed for Nausea and Vomiting (N/V). pantoprazol 2020-0 Yes [id number] 40mg Take 1 [facility] 4-18 tablet by [facility] (PROTONIX) 00:00: mouth [place] 40 mg EC 00 daily. Medical tablet Branch dicyclomine 0 Yes [id number] 20mg Take 1 [facility] 20 mg 4-18 tablet by [facility] tablet 00:00: mouth [place] 00 every 6 Medical (six) Branch hours as needed for Abdominal pain. ondansetron 0 Yes [id number] 4mg Take 1 [facility] (ZOFRAN) 4 4-18 tablet by [facility] of mg tablet 00:00: mouth [place] 00 every 8 Medical (eight) Branch hours as needed for Nausea and Vomiting (N/V). pantoprazol 2020-0 Yes [id number] 40mg Take 1 [facility] 4-18 tablet by [facility] (PROTONIX) 00:00: mouth [place] 40 mg EC 00 daily. Medical tablet Branch dicyclomine 2020-0 Yes [id number] 20mg Take 1 [facility] 20 mg 4-18 tablet by [facility] tablet 00:00: mouth [place] 00 every 6 Medical (six) Branch hours as needed for Abdominal pain. ondansetron 2020-0 Yes [id number] 4mg Take 1 [facility] (ZOFRAN) 4 4-18 tablet by [facility] mg tablet 00:00: mouth [place] 00 every 8 Medical (eight) Branch hours as needed for Nausea and Vomiting (N/V). pantoprazol 2020-0 Yes [id number] 40mg Take 1 [facility] 4-18 tablet by [facility] (PROTONIX) 00:00: mouth [place] 40 mg EC 00 daily. Medical tablet Branch dicyclomine 2020-0 Yes [id number] 20mg Take 1 [facility] 20 mg 4-18 tablet by [facility] of tablet 00:00: mouth [place] 00 every 6 Medical (six) Branch hours as needed for Abdominal pain. ondansetron 2020-0 Yes [id number] 4mg Take 1 [facility] (ZOFRAN) 4 4-18 tablet by [facility] mg tablet 00:00: mouth [place] 00 every 8 Medical (eight) Branch hours as needed for Nausea and Vomiting (N/V). pantoprazol 2020-0 Yes [id number] 40mg Take 1 [facility] 4-18 tablet by [facility] (PROTONIX) 00:00: mouth [place] 40 mg EC 00 daily. Medical tablet Branch dicyclomine 2020-0 Yes [id number] 20mg Take 1 [facility] 20 mg 4-18 tablet by [facility] tablet 00:00: mouth [place] 00 every 6 Medical (six) Branch hours as needed for Abdominal pain. ondansetron 2020-0 Yes [id number] 4mg Take 1 [facility] (ZOFRAN) 4 4-18 tablet by [facility] mg tablet 00:00: mouth [place] 00 every 8 Medical (eight) Branch hours as needed for Nausea and Vomiting (N/V). pantoprazol 2020-0 Yes [id number] 40mg Take 1 [facility] 4-18 tablet by [facility] (PROTONIX) 00:00: mouth [place] 40 mg EC 00 daily. Medical tablet Branch dicyclomine 2020-0 Yes [id number] 20mg Take 1 [facility] 20 mg 4-18 tablet by [facility] tablet 00:00: mouth [place] 00 every 6 Medical (six) Branch hours as needed for Abdominal pain. ondansetron 2020-0 Yes [id number] 4mg Take 1 [facility] (ZOFRAN) 4 4-18 tablet by [facility] mg tablet 00:00: mouth [place] 00 every 8 Medical (eight) Branch hours as needed for Nausea and Vomiting (N/V). pantoprazol 2020-0 Yes [id number] 40mg Take 1 [facility] 4-18 tablet by [facility] (PROTONIX) 00:00: mouth [place] 40 mg EC 00 daily. Medical tablet Branch dicyclomine 2020-0 Yes [id number] 20mg Take 1 [facility] 20 mg 4-18 tablet by [facility] tablet 00:00: mouth [place] 00 every 6 Medical (six) Branch hours as needed for Abdominal pain. ondansetron 2020-0 Yes [id number] 4mg Take 1 [facility] (ZOFRAN) 4 4-18 tablet by [facility] of mg tablet 00:00: mouth [place] 00 every 8 Medical (eight) Branch hours as needed for Nausea and Vomiting (N/V). pantoprazol 2020-0 Yes [id number] 40mg Take 1 [facility] 4-18 tablet by [facility] (PROTONIX) 00:00: mouth [place] 40 mg EC 00 daily. Medical tablet Branch dicyclomine 2020-0 Yes [id number] 20mg Take 1 [facility] 20 mg 4-18 tablet by [facility] tablet 00:00: mouth [place] 00 every 6 Medical (six) Branch hours as needed for Abdominal pain. ondansetron 2020-0 Yes [id number] 4mg Take 1 [facility] (ZOFRAN) 4 4-18 tablet by [facility] mg tablet 00:00: mouth [place] 00 every 8 Medical (eight) Branch hours as needed for Nausea and Vomiting (N/V). pantoprazol 2020-0 Yes [id number] 40mg Take 1 [facility] 4-18 tablet by [facility] (PROTONIX) 00:00: mouth [place] 40 mg EC 00 daily. Medical tablet Branch dicyclomine 2020-0 Yes [id number] 20mg Take 1 [facility] 20 mg 4-18 tablet by [facility] tablet 00:00: mouth [place] 00 every 6 Medical (six) Branch hours as needed for Abdominal pain. ondansetron 2020-0 Yes [id number] 4mg Take 1 [facility] (ZOFRAN) 4 4-18 tablet by [facility] of mg tablet 00:00: mouth [place] 00 every 8 Medical (eight) Branch hours as needed for Nausea and Vomiting (N/V). pantoprazol 2020-0 Yes [id number] 40mg Take 1 [facility] 4-18 tablet by [facility] (PROTONIX) 00:00: mouth [place] 40 mg EC 00 daily. Medical tablet Branch dicyclomine 2020-0 Yes [id number] 20mg Take 1 [facility] 20 mg 4-18 tablet by [facility] of tablet 00:00: mouth [place] 00 every 6 Medical (six) Branch hours as needed for Abdominal pain. ondansetron 2020-0 Yes [id number] 4mg Take 1 [facility] (ZOFRAN) 4 4-18 tablet by [facility] of mg tablet 00:00: mouth [place] 00 every 8 Medical (eight) Branch hours as needed for Nausea and Vomiting (N/V). pantoprazol 2020-0 Yes [id number] 40mg Take 1 [facility] 4-18 tablet by [facility] (PROTONIX) 00:00: mouth [place] 40 mg EC 00 daily. Medical tablet Branch dicyclomine 2020-0 Yes [id number] 20mg Take 1 [facility] 20 mg 4-18 tablet by [facility] of tablet 00:00: mouth [place] 00 every 6 Medical (six) Branch hours as needed for Abdominal pain. ondansetron 2020-0 Yes [id number] 4mg Take 1 [facility] (ZOFRAN) 4 4-18 tablet by [facility] of mg tablet 00:00: mouth [place] 00 every 8 Medical (eight) Branch hours as needed for Nausea and Vomiting (N/V). pantoprazol 2020-0 Yes [id number] 40mg Take 1 [facility] e 4-18 tablet by [facility] (PROTONIX) 00:00: mouth [place] 40 mg EC 00 daily. Medical tablet Branch dicyclomine 2020-0 Yes [id number] 20mg Take 1 [facility] 20 mg 4-18 tablet by [facility] of tablet 00:00: mouth [place] 00 every 6 Medical (six) Branch hours as needed for Abdominal pain. ondansetron 2020-0 Yes [id number] 4mg Take 1 [facility] (ZOFRAN) 4 4-18 tablet by [facility] of mg tablet 00:00: mouth [place] 00 every 8 Medical (eight) Branch hours as needed for Nausea and Vomiting (N/V). pantoprazol 2020-0 Yes [id number] 40mg Take 1 [facility] 4-18 tablet by [facility] (PROTONIX) 00:00: mouth [place] 40 mg EC 00 daily. Medical tablet Branch dicyclomine 2020-0 Yes [id number] 20mg Take 1 [facility] 20 mg 4-18 tablet by [facility] of tablet 00:00: mouth [place] 00 every 6 Medical (six) Branch hours as needed for Abdominal pain. ondansetron 2020-0 Yes [id number] 4mg Take 1 [facility] (ZOFRAN) 4 4-18 tablet by [facility] of mg tablet 00:00: mouth [place] 00 every 8 Medical (eight) Branch hours as needed for Nausea and Vomiting (N/V). pantoprazol 2020-0 Yes [id number] 40mg Take 1 [facility] 4-18 tablet by [facility] (PROTONIX) 00:00: mouth [place] 40 mg EC 00 daily. Medical tablet Branch dicyclomine 2020-0 Yes [id number] 20mg Take 1 [facility] 20 mg 4-18 tablet by [facility] of tablet 00:00: mouth [place] 00 every 6 Medical (six) Branch hours as needed for Abdominal pain. ondansetron 2020-0 Yes [id number] 4mg Take 1 [facility] (ZOFRAN) 4 4-18 tablet by [facility] of mg tablet 00:00: mouth [place] 00 every 8 Medical (eight) Branch hours as needed for Nausea and Vomiting (N/V). pantoprazol 2020-0 Yes [id number] 40mg Take 1 [facility] e 4-18 tablet by [facility] (PROTONIX) 00:00: mouth [place] 40 mg EC 00 daily. Medical tablet Branch dicyclomine 0 Yes [id number] 20mg Take 1 [facility] 20 mg 4-18 tablet by [facility] of tablet 00:00: mouth [place] 00 every 6 Medical (six) Branch hours as needed for Abdominal pain. pantoprazol 2020-0 Yes [id number] 40mg Take 1 [facility] 4-18 tablet by [facility] (PROTONIX) 00:00: mouth [place] 40 mg EC 00 daily. Medical tablet Branch dicyclomine 2020-0 Yes [id number] 20mg Take 1 [facility] 20 mg 4-18 tablet by [facility] of tablet 00:00: mouth [place] 00 every 6 Medical (six) Branch hours as needed for Abdominal pain. pantoprazol 2020-0 Yes [id number] 40mg Take 1 [facility] 4-18 tablet by [facility] (PROTONIX) 00:00: mouth [place] 40 mg EC 00 daily. Medical tablet Branch dicyclomine 2020-0 Yes [id number] 20mg Take 1 [facility] 20 mg 4-18 tablet by [facility] tablet 00:00: mouth [place] 00 every 6 Medical (six) Branch hours as needed for Abdominal pain. pantoprazol 2020-0 Yes [id number] 40mg Take 1 [facility] e 4-18 tablet by [facility] (PROTONIX) 00:00: mouth [place] 40 mg EC 00 daily. Medical tablet Branch dicyclomine 2020-0 Yes [id number] 20mg Take 1 [facility] 20 mg 4-18 tablet by [facility] of tablet 00:00: mouth [place] 00 every 6 Medical (six) Branch hours as needed for Abdominal pain. pantoprazol 2020-0 Yes [id number] 40mg Take 1 [facility] 4-18 tablet by [facility] (PROTONIX) 00:00: mouth [place] 40 mg EC 00 daily. Medical tablet Branch dicyclomine 2020-0 Yes [id number] 20mg Take 1 [facility] 20 mg 4-18 tablet by [facility] tablet 00:00: mouth [place] 00 every 6 Medical (six) Branch hours as needed for Abdominal pain. pantoprazol 2020-0 Yes [id number] 40mg Take 1 [facility] e 4-18 tablet by [facility] (PROTONIX) 00:00: mouth [place] 40 mg EC 00 daily. Medical tablet Branch dicyclomine 2020-0 Yes [id number] 20mg Take 1 [facility] 20 mg 4-18 tablet by [facility] of tablet 00:00: mouth [place] 00 every 6 Medical (six) Branch hours as needed for Abdominal pain. pantoprazol 2020-0 Yes [id number] 40mg Take 1 [facility] 4-18 tablet by [facility] (PROTONIX) 00:00: mouth [place] 40 mg EC 00 daily. Medical tablet Branch dicyclomine 2020-0 Yes [id number] 20mg Take 1 [facility] 20 mg 4-18 tablet by [facility] of tablet 00:00: mouth [place] 00 every 6 Medical (six) Branch hours as needed for Abdominal pain. pantoprazol 2020-0 Yes [id number] 40mg Take 1 [facility] e 4-18 tablet by [facility] (PROTONIX) 00:00: mouth [place] 40 mg EC 00 daily. Medical tablet Branch dicyclomine 2020-0 Yes [id number] 20mg Take 1 [facility] 20 mg 4-18 tablet by [facility] of tablet 00:00: mouth [place] 00 every 6 Medical (six) Branch hours as needed for Abdominal pain. pantoprazol 2020-0 Yes [id number] 40mg Take 1 [facility] e 4-18 tablet by [facility] (PROTONIX) 00:00: mouth [place] 40 mg EC 00 daily. Medical tablet Branch dicyclomine 2020-0 Yes [id number] 20mg Take 1 [facility] 20 mg 4-18 tablet by [facility] tablet 00:00: mouth [place] 00 every 6 Medical (six) Branch hours as needed for Abdominal pain. pantoprazol 2020-0 Yes [id number] 40mg Take 1 [facility] e 4-18 tablet by [facility] (PROTONIX) 00:00: mouth [place] 40 mg EC 00 daily. Medical tablet Branch dicyclomine 2020-0 Yes [id number] 20mg Take 1 [facility] 20 mg 4-18 tablet by [facility] tablet 00:00: mouth [place] 00 every 6 Medical (six) Branch hours as needed for Abdominal pain. pantoprazol 2020-0 Yes [id number] 40mg Take 1 [facility] e 4-18 tablet by [facility] (PROTONIX) 00:00: mouth [place] 40 mg EC 00 daily. Medical tablet Branch dicyclomine 2020-0 Yes [id number] 20mg Take 1 [facility] 20 mg 4-18 tablet by [facility] of tablet 00:00: mouth [place] 00 every 6 Medical (six) Branch hours as needed for Abdominal pain. pantoprazol 2020-0 Yes [id number] 40mg Take 1 [facility] e 4-18 tablet by [facility] (PROTONIX) 00:00: mouth [place] 40 mg EC 00 daily. Medical tablet Branch dicyclomine 2020-0 Yes [id number] 20mg Take 1 [facility] 20 mg 4-18 tablet by [facility] of tablet 00:00: mouth [place] 00 every 6 Medical (six) Branch hours as needed for Abdominal pain. pantoprazol 2020-0 Yes [id number] 40mg Take 1 [facility] e 4-18 tablet by [facility] (PROTONIX) 00:00: mouth [place] 40 mg EC 00 daily. Medical tablet Branch dicyclomine 2020-0 Yes [id number] 20mg Take 1 [facility] 20 mg 4-18 tablet by [facility] of tablet 00:00: mouth [place] 00 every 6 Medical (six) Branch hours as needed for Abdominal pain. pantoprazol 2020-0 Yes [id number] 40mg Take 1 [facility] e 4-18 tablet by [facility] (PROTONIX) 00:00: mouth [place] 40 mg EC 00 daily. Medical tablet Branch dicyclomine 2020-0 Yes [id number] 20mg Take 1 [facility] 20 mg 4-18 tablet by [facility] tablet 00:00: mouth [place] 00 every 6 Medical (six) Branch hours as needed for Abdominal pain. pantoprazol 2020-0 Yes [id number] 40mg Take 1 [facility] 4-18 tablet by [facility] (PROTONIX) 00:00: mouth [place] 40 mg EC 00 daily. Medical tablet Branch dicyclomine 2020-0 Yes [id number] 20mg Take 1 [facility] 20 mg 4-18 tablet by [facility] tablet 00:00: mouth [place] 00 every 6 Medical (six) Branch hours as needed for Abdominal pain. pantoprazol 2020-0 Yes [id number] 40mg Take 1 [facility] 4-18 tablet by [facility] (PROTONIX) 00:00: mouth [place] 40 mg EC 00 daily. Medical tablet Branch dicyclomine 2020-0 Yes [id number] 20mg Take 1 [facility] 20 mg 4-18 tablet by [facility] tablet 00:00: mouth [place] 00 every 6 Medical (six) Branch hours as needed for Abdominal pain. pantoprazol 2020-0 Yes [id number] 40mg Take 1 [facility] 4-18 tablet by [facility] (PROTONIX) 00:00: mouth [place] 40 mg EC 00 daily. Medical tablet Branch dicyclomine 2020-0 Yes [id number] 20mg Take 1 [facility] 20 mg 4-18 tablet by [facility] tablet 00:00: mouth [place] 00 every 6 Medical (six) Branch hours as needed for Abdominal pain. pantoprazol 2020-0 Yes [id number] 40mg Take 1 [facility] e 4-18 tablet by [facility] (PROTONIX) 00:00: mouth [place] 40 mg EC 00 daily. Medical tablet Branch dicyclomine 2020-0 Yes [id number] 20mg Take 1 [facility] 20 mg 4-18 tablet by [facility] tablet 00:00: mouth [place] 00 every 6 Medical (six) Branch hours as needed for Abdominal pain. pantoprazol 2020-0 Yes [id number] 40mg Take 1 [facility] 4-18 tablet by [facility] (PROTONIX) 00:00: mouth [place] 40 mg EC 00 daily. Medical tablet Branch dicyclomine 2020-0 Yes [id number] 20mg Take 1 [facility] 20 mg 4-18 tablet by [facility] tablet 00:00: mouth [place] 00 every 6 Medical (six) Branch hours as needed for Abdominal pain. pantoprazol 2020-0 Yes [id number] 40mg Take 1 [facility] e 4-18 tablet by [facility] (PROTONIX) 00:00: mouth [place] 40 mg EC 00 daily. Medical tablet Branch dicyclomine 2020-0 Yes [id number] 20mg Take 1 [facility] 20 mg 4-18 tablet by [facility] tablet 00:00: mouth [place] 00 every 6 Medical (six) Branch hours as needed for Abdominal pain. ondansetron 2020-0 Yes [id number] 4mg Take 1 [facility] (ZOFRAN) 4 4-18 tablet by [facility] of mg tablet 00:00: mouth [place] 00 every 8 Medical (eight) Branch hours as needed for Nausea and Vomiting (N/V). pantoprazol 2020-0 Yes [id number] 40mg Take 1 [facility] e 4-18 tablet by [facility] (PROTONIX) 00:00: mouth [place] 40 mg EC 00 daily. Medical tablet Branch dicyclomine 2020-0 Yes [id number] 20mg Take 1 [facility] 20 mg 4-18 tablet by [facility] tablet 00:00: mouth [place] 00 every 6 Medical (six) Branch hours as needed for Abdominal pain. ondansetron 2020-0 Yes [id number] 4mg Take 1 [facility] (ZOFRAN) 4 4-18 tablet by [facility] mg tablet 00:00: mouth [place] 00 every 8 Medical (eight) Branch hours as needed for Nausea and Vomiting (N/V). pantoprazol 2020-0 Yes [id number] 40mg Take 1 [facility] e 4-18 tablet by [facility] (PROTONIX) 00:00: mouth [place] 40 mg EC 00 daily. Medical tablet Branch dicyclomine 2020-0 Yes [id number] 20mg Take 1 [facility] 20 mg 4-18 tablet by [facility] tablet 00:00: mouth [place] 00 every 6 Medical (six) Branch hours as needed for Abdominal pain. ondansetron 2020-0 Yes [id number] 4mg Take 1 [facility] (ZOFRAN) 4 4-18 tablet by [facility] mg tablet 00:00: mouth [place] 00 every 8 Medical (eight) Branch hours as needed for Nausea and Vomiting (N/V). pantoprazol 1-0 Yes [id number] 40mg Take 1 [facility] e 4-18 tablet by [facility] (PROTONIX) 00:00: mouth [place] 40 mg EC 00 daily. Medical tablet Branch dicyclomine 2020-0 Yes [id number] 20mg Take 1 [facility] 20 mg 4-18 tablet by [facility] tablet 00:00: mouth [place] 00 every 6 Medical (six) Branch hours as needed for Abdominal pain. ondansetron 2020-0 Yes [id number] 4mg Take 1 [facility] (ZOFRAN) 4 4-18 tablet by [facility] mg tablet 00:00: mouth [place] 00 every 8 Medical (eight) Branch hours as needed for Nausea and Vomiting (N/V). pantoprazol 2020-0 Yes [id number] 40mg Take 1 [facility] e 4-18 tablet by [facility] (PROTONIX) 00:00: mouth [place] 40 mg EC 00 daily. Medical tablet Branch dicyclomine 2020-0 Yes [id number] 20mg Take 1 [facility] 20 mg 4-18 tablet by [facility] tablet 00:00: mouth [place] 00 every 6 Medical (six) Branch hours as needed for Abdominal pain. ondansetron 2020-0 Yes [id number] 4mg Take 1 [facility] (ZOFRAN) 4 4-18 tablet by [facility] mg tablet 00:00: mouth [place] 00 every 8 Medical (eight) Branch hours as needed for Nausea and Vomiting (N/V). pantoprazol 2020-0 Yes [id number] 40mg Take 1 [facility] e 4-18 tablet by [facility] (PROTONIX) 00:00: mouth [place] 40 mg EC 00 daily. Medical tablet Branch dicyclomine 2020-0 Yes [id number] 20mg Take 1 [facility] 20 mg 4-18 tablet by [facility] tablet 00:00: mouth [place] 00 every 6 Medical (six) Branch hours as needed for Abdominal pain. ondansetron 2020-0 Yes [id number] 4mg Take 1 [facility] (ZOFRAN) 4 4-18 tablet by [facility] mg tablet 00:00: mouth [place] 00 every 8 Medical (eight) Branch hours as needed for Nausea and Vomiting (N/V). pantoprazol 2020-0 Yes [id number] 40mg Take 1 [facility] e 4-18 tablet by [facility] (PROTONIX) 00:00: mouth [place] 40 mg EC 00 daily. Medical tablet Branch dicyclomine 2020-0 Yes [id number] 20mg Take 1 [facility] 20 mg 4-18 tablet by [facility] tablet 00:00: mouth [place] 00 every 6 Medical (six) Branch hours as needed for Abdominal pain. ondansetron 2020-0 Yes [id number] 4mg Take 1 [facility] (ZOFRAN) 4 4-18 tablet by [facility] mg tablet 00:00: mouth [place] 00 every 8 Medical (eight) Branch hours as needed for Nausea and Vomiting (N/V). pantoprazol 2020-0 Yes [id number] 40mg Take 1 [facility] e 4-18 tablet by [facility] (PROTONIX) 00:00: mouth [place] 40 mg EC 00 daily. Medical tablet Branch dicyclomine 2020-0 Yes [id number] 20mg Take 1 [facility] 20 mg 4-18 tablet by [facility] tablet 00:00: mouth [place] 00 every 6 Medical (six) Branch hours as needed for Abdominal pain. ondansetron 2020-0 Yes [id number] 4mg Take 1 [facility] (ZOFRAN) 4 4-18 tablet by [facility] mg tablet 00:00: mouth [place] 00 every 8 Medical (eight) Branch hours as needed for Nausea and Vomiting (N/V). pantoprazol 2020-0 Yes [id number] 40mg Take 1 [facility] e 4-18 tablet by [facility] (PROTONIX) 00:00: mouth [place] 40 mg EC 00 daily. Medical tablet Branch dicyclomine 2020-0 Yes [id number] 20mg Take 1 [facility] 20 mg 4-18 tablet by [facility] tablet 00:00: mouth [place] 00 every 6 Medical (six) Branch hours as needed for Abdominal pain. ondansetron 2020-0 Yes [id number] 4mg Take 1 [facility] (ZOFRAN) 4 4-18 tablet by [facility] mg tablet 00:00: mouth [place] 00 every 8 Medical (eight) Branch hours as needed for Nausea and Vomiting (N/V). pantoprazol 2020-0 Yes [id number] 40mg Take 1 [facility] e 4-18 tablet by [facility] (PROTONIX) 00:00: mouth [place] 40 mg EC 00 daily. Medical tablet Branch dicyclomine 2020-0 Yes [id number] 20mg Take 1 [facility] 20 mg 4-18 tablet by [facility] tablet 00:00: mouth [place] 00 every 6 Medical (six) Branch hours as needed for Abdominal pain. ondansetron 2020-0 Yes [id number] 4mg Take 1 [facility] (ZOFRAN) 4 4-18 tablet by [facility] mg tablet 00:00: mouth [place] 00 every 8 Medical (eight) Branch hours as needed for Nausea and Vomiting (N/V). pantoprazol 2020-0 Yes [id number] 40mg Take 1 [facility] e 4-18 tablet by [facility] of (PROTONIX) 00:00: mouth [place] 40 mg EC 00 daily. Medical tablet Branch dicyclomine 2020-0 Yes [id number] 20mg Take 1 [facility] 20 mg 4-18 tablet by [facility]y of tablet 00:00: mouth [place] 00 every 6 Medical (six) Branch hours as needed for Abdominal pain. ondansetron 2020-0 Yes [id number] 4mg Take 1 [facility] (ZOFRAN) 4 4-18 tablet by ity of mg tablet 00:00: mouth [place] 00 every 8 Medical (eight) Branch hours as needed for Nausea and Vomiting (N/V). pantoprazol 2020-0 Yes [id number] 40mg Take 1 [facility] e 4-18 tablet by [facility] of (PROTONIX) 00:00: mouth [place] 40 mg EC 00 daily. Medical tablet Branch dicyclomine 2020-0 Yes [id number] 20mg Take 1 [facility] 20 mg 4-18 tablet by [facility] of tablet 00:00: mouth [place] 00 every 6 Medical (six) Branch hours as needed for Abdominal pain. ondansetron 2020-0 Yes [id number] 4mg Take 1 [facility] (ZOFRAN) 4 4-18 tablet by ity of mg tablet 00:00: mouth [place] 00 every 8 Medical (eight) Branch hours as needed for Nausea and Vomiting (N/V). pantoprazol 2020-0 Yes [id number] 40mg Take 1 [facility] e 4-18 tablet by [facility] of (PROTONIX) 00:00: mouth [place] 40 mg EC 00 daily. Medical tablet Branch dicyclomine 2020-0 Yes [id number] 20mg Take 1 [facility] 20 mg 4-18 tablet by [facility]y of tablet 00:00: mouth [place] 00 every 6 Medical (six) Branch hours as needed for Abdominal pain. ondansetron 2020-0 Yes [id number] 4mg Take 1 [facility] (ZOFRAN) 4 4-18 tablet by ity of mg tablet 00:00: mouth [place] 00 every 8 Medical (eight) Branch hours as needed for Nausea and Vomiting (N/V). pantoprazol 2020-0 Yes [id number] 40mg Take 1 [facility] e 4-18 tablet by [facility] of (PROTONIX) 00:00: mouth [place] 40 mg EC 00 daily. Medical tablet Branch dicyclomine 2020-0 Yes [id number] 20mg Take 1 [facility] 20 mg 4-18 tablet by [facility] of tablet 00:00: mouth [place] 00 every 6 Medical (six) Branch hours as needed for Abdominal pain. ondansetron 2020-0 Yes [id number] 4mg Take 1 [facility] (ZOFRAN) 4 4-18 tablet by ity of mg tablet 00:00: mouth [place] 00 every 8 Medical (eight) Branch hours as needed for Nausea and Vomiting (N/V). pantoprazol 2020-0 Yes [id number] 40mg Take 1 [facility] e 4-18 tablet by [facility] of (PROTONIX) 00:00: mouth [place] 40 mg EC 00 daily. Medical tablet Branch dicyclomine 2020-0 Yes [id number] 20mg Take 1 [facility] 20 mg 4-18 tablet by [facility] of tablet 00:00: mouth [place] 00 every 6 Medical (six) Branch hours as needed for Abdominal pain. ondansetron 2020-0 Yes [id number] 4mg Take 1 [facility] (ZOFRAN) 4 4-18 tablet by ity of mg tablet 00:00: mouth [place] 00 every 8 Medical (eight) Branch hours as needed for Nausea and Vomiting (N/V). pantoprazol 2020-0 Yes [id number] 40mg Take 1 [facility] e 4-18 tablet by [facility] of (PROTONIX) 00:00: mouth [place] 40 mg EC 00 daily. Medical tablet Branch dicyclomine 2020-0 Yes [id number] 20mg Take 1 [facility] 20 mg 4-18 tablet by [facility] of tablet 00:00: mouth [place] 00 every 6 Medical (six) Branch hours as needed for Abdominal pain. ondansetron 2020-0 Yes [id number] 4mg Take 1 [facility] (ZOFRAN) 4 4-18 tablet by ity of mg tablet 00:00: mouth [place] 00 every 8 Medical (eight) Branch hours as needed for Nausea and Vomiting (N/V). pantoprazol 2020-0 Yes [id number] 40mg Take 1 [facility] e 4-18 tablet by [facility] of (PROTONIX) 00:00: mouth [place] 40 mg EC 00 daily. Medical tablet Branch dicyclomine 2020-0 Yes [id number] 20mg Take 1 [facility] 20 mg 4-18 tablet by ity of tablet 00:00: mouth [place] 00 every 6 Medical (six) Branch hours as needed for Abdominal pain. ondansetron 2020-0 Yes [id number] 4mg Take 1 [facility] (ZOFRAN) 4 4-18 tablet by ity of mg tablet 00:00: mouth [place] 00 every 8 Medical (eight) Branch hours as needed for Nausea and Vomiting (N/V). pantoprazol 2020-0 Yes [id number] 40mg Take 1 [facility] e 4-18 tablet by [facility] of (PROTONIX) 00:00: mouth [place] 40 mg EC 00 daily. Medical tablet Branch dicyclomine 2020-0 Yes [id number] 20mg Take 1 [facility] 20 mg 4-18 tablet by [facility]y of tablet 00:00: mouth [place] 00 every 6 Medical (six) Branch hours as needed for Abdominal pain. ondansetron 2020-0 Yes [id number] 4mg Take 1 [facility] (ZOFRAN) 4 4-18 tablet by ity of mg tablet 00:00: mouth [place] 00 every 8 Medical (eight) Branch hours as needed for Nausea and Vomiting (N/V). pantoprazol 2020-0 Yes [id number] 40mg Take 1 [facility] e 4-18 tablet by [facility]y of (PROTONIX) 00:00: mouth [place] 40 mg EC 00 daily. Medical tablet Branch dicyclomine 2020-0 Yes [id number] 20mg Take 1 [facility] 20 mg 4-18 tablet by [facility] of tablet 00:00: mouth [place] 00 every 6 Medical (six) Branch hours as needed for Abdominal pain. ondansetron 2020-0 Yes [id number] 4mg Take 1 [facility] (ZOFRAN) 4 4-18 tablet by ity of mg tablet 00:00: mouth [place] 00 every 8 Medical (eight) Branch hours as needed for Nausea and Vomiting (N/V). pantoprazol 2020-0 Yes [id number] 40mg Take 1 [facility] e 4-18 tablet by [facility]y of (PROTONIX) 00:00: mouth [place] 40 mg EC 00 daily. Medical tablet Branch dicyclomine 2020-0 Yes [id number] 20mg Take 1 [facility] 20 mg 4-18 tablet by [facility] of tablet 00:00: mouth [place] 00 every 6 Medical (six) Branch hours as needed for Abdominal pain. ondansetron 2020-0 Yes [id number] 4mg Take 1 [facility] (ZOFRAN) 4 4-18 tablet by ity of mg tablet 00:00: mouth [place] 00 every 8 Medical (eight) Branch hours as needed for Nausea and Vomiting (N/V). pantoprazol 2020-0 Yes [id number] 40mg Take 1 [facility] e 4-18 tablet by [facility] of (PROTONIX) 00:00: mouth [place] 40 mg EC 00 daily. Medical tablet Branch dicyclomine 2020-0 Yes [id number] 20mg Take 1 [facility] 20 mg 4-18 tablet by [facility] of tablet 00:00: mouth [place] 00 every 6 Medical (six) Branch hours as needed for Abdominal pain. ondansetron 2020-0 Yes [id number] 4mg Take 1 [facility] (ZOFRAN) 4 4-18 tablet by ity of mg tablet 00:00: mouth [place] 00 every 8 Medical (eight) Branch hours as needed for Nausea and Vomiting (N/V). pantoprazol 2020-0 Yes [id number] 40mg Take 1 [facility] e 4-18 tablet by it[facility] of (PROTONIX) 00:00: mouth [place] 40 mg EC 00 daily. Medical tablet Branch dicyclomine 2020-0 Yes [id number] 20mg Take 1 [facility] 20 mg 4-18 tablet by [facility] of tablet 00:00: mouth [place] 00 every 6 Medical (six) Branch hours as needed for Abdominal pain. ondansetron 2020-0 Yes [id number] 4mg Take 1 [facility] (ZOFRAN) 4 4-18 tablet by ity of mg tablet 00:00: mouth [place] 00 every 8 Medical (eight) Branch hours as needed for Nausea and Vomiting (N/V). pantoprazol 2020-0 Yes [id number] 40mg Take 1 [facility] e 4-18 tablet by ity of (PROTONIX) 00:00: mouth [place] 40 mg EC 00 daily. Medical tablet Branch dicyclomine 2020-0 Yes [id number] 20mg Take 1 [facility] 20 mg 4-18 tablet by it[facility] of tablet 00:00: mouth [place] 00 every 6 Medical (six) Branch hours as needed for Abdominal pain. ondansetron 2020-0 Yes [id number] 4mg Take 1 [facility] (ZOFRAN) 4 4-18 tablet by ity of mg tablet 00:00: mouth [place] 00 every 8 Medical (eight) Branch hours as needed for Nausea and Vomiting (N/V). ondansetron 2022- No [id number] 4mg Take 1 [facility] (ZOFRAN) 4 4-18 06-27 tablet by ity of mg tablet 00:00: 00:00 mouth [place] 00 :00 every 8 Medical (eight) Branch hours as needed for Nausea and Vomiting (N/V). ondansetron 2022- No [id number] 4mg Take 1 [facility] (ZOFRAN) 4 4-18 [...] (scale 4-6). Indication s: acute pain acetaminoph 2019-09- No 4647 1{tbl} Take 1-2 [facility] en-codeine 2-10 10-05 tablets by it y of 300-30 mg 00:00: 00:00 mouth [place] tablet 00 :00 every 6 Medical (six) Branch hours as needed for Pain (scale 4-6). Indication s: acute pain acetaminoph 2019-09- No 4647 1{tbl} Take 1-2 [facility] en-codeine 2-10 10-05 tablets by it y of 300-30 mg 00:00: 00:00 mouth [place] tablet 00 :00 every 6 Medical (six) Branch [...] 2020-0 Yes 4647 1{tbl} Take 1 [facility] en-codeine 8-08 tablet by ity of (TYLENOL-CO [...] 1-3). Indication s: acute pain acetaminoph 2020-0 3- No 4647 1{tbl} Take 1 [facility] en-codeine 8-08 10-05 tablet by ity of (TYLENOL-CO 00:00: 00:00 [place] DE[place] #3[place] 00 :00 every 4 Medical 300-30 mg (four) Branch tablet hours as needed for Pain (scale 1-3). Indication s: acute pain acetaminoph 2020-0 3- No 4647 1{tbl} Take 1 [facility] en-codeine 8-08 10-05 tablet by ity of (TYLENOL-CO 00:00: 00:00 [facility] [place] DE[place] #3) 00 :00 every 4 Medical 300-30 mg (four) Branch [...] 00 DAILY UNTIL FINISHED. nystatin 2020-0 Yes [id number] Apply to [facility] 100,000 2-05 affected [facility]y of unit/gram 00:00: area(s) 3 [facility] as ointment 00 (three) Medical times Branch daily. nystatin 2020-0 Yes [id number] Apply to [facility] 100,000 2-05 affected ity of unit/gram 00:00: area(s) 3 [facility] ointment 00 (three) Medical times Branch daily. nystatin 2020-0 Yes [id number] Apply to [facility] 100,000 2-05 affected ity of unit/gram 00:00: area(s) 3 [facility] as ointment 00 (three) Medical times Branch daily. nystatin 2020-0 Yes [id number] Apply to [facility] 100,000 2-05 affected ity of unit/gram 00:00: area(s) 3 [facility] ointment 00 (three) Medical times Branch daily. nystatin 2020-0 Yes [id number] Apply to [facility] 100,000 2-05 affected ity of unit/gram 00:00: area(s) 3 [facility] ointment 00 (three) Medical times Branch daily. nystatin 2020-0 Yes [id number] Apply to [facility] 100,000 2-05 affected ity of unit/gram 00:00: area(s) 3 [facility] ointment 00 (three) Medical times Branch daily. nystatin 2020-0 Yes [id number] Apply to [facility] 100,000 2-05 affected ity of unit/gram 00:00: area(s) 3 [facility] ointment 00 (three) Medical times Branch daily. nystatin 2020-0 Yes [id number] Apply to [facility] 100,000 2-05 affected ity of unit/gram 00:00: area(s) 3 [facility] ointment 00 (three) Medical times Branch daily. nystatin 2020-0 Yes [id number] Apply to [facility] 100,000 2-05 affected ity of unit/gram 00:00: area(s) 3 [facility] ointment 00 (three) Medical times Branch daily. nystatin 2020-0 Yes [id number] Apply to [facility] 100,000 2-05 affected ity of unit/gram 00:00: area(s) 3 [facility] ointment 00 (three) Medical times Branch daily. nystatin 2020-0 Yes [id number] Apply to [facility] 100,000 2-05 affected ity of unit/gram 00:00: area(s) 3 [facility] as ointment 00 (three) Medical times Branch daily. nystatin 2020-0 Yes [id number] Apply to [facility] 100,000 2-05 affected ity of unit/gram 00:00: area(s) 3 [facility] as ointment 00 (three) Medical times Branch daily. nystatin 2020-0 Yes [id number] Apply to [facility] 100,000 2-05 affected ity of unit/gram 00:00: area(s) 3 [facility] as ointment 00 (three) Medical times Branch daily. nystatin 2020-0 Yes [id number] Apply to [facility] 100,000 2-05 affected ity of unit/gram 00:00: area(s) 3 [facility] ointment 00 (three) Medical times Branch daily. nystatin 2020-0 Yes [id number] Apply to [facility] 100,000 2-05 affected ity of unit/gram 00:00: area(s) 3 [facility] ointment 00 (three) Medical times Branch daily. nystatin 2020-0 Yes [id number] Apply to [facility] 100,000 2-05 affected ity of unit/gram 00:00: area(s) 3 [facility] ointment 00 (three) Medical times Branch daily. nystatin 2020-0 Yes [id number] Apply to [facility] 100,000 2-05 affected ity of unit/gram 00:00: area(s) 3 [facility] as ointment 00 (three) Medical times Branch daily. nystatin 2020-0 Yes [id number] Apply to [facility] 100,000 2-05 affected ity of unit/gram 00:00: area(s) 3 [facility] as ointment 00 (three) Medical times Branch daily. nystatin 2020-0 Yes [id number] Apply to [facility] 100,000 2-05 affected ity of unit/gram 00:00: area(s) 3 [facility] as ointment 00 (three) Medical times Branch daily. nystatin 2020-0 Yes [id number] Apply to [facility] 100,000 2-05 affected ity of unit/gram 00:00: area(s) 3 [facility] as ointment 00 (three) Medical times Branch daily. nystatin 2020-0 Yes [id number] Apply to [facility] 100,000 2-05 affected ity of unit/gram 00:00: area(s) 3 [facility] ointment 00 (three) Medical times Branch daily. nystatin 2020-0 Yes [id number] Apply to [facility] 100,000 2-05 affected ity of unit/gram 00:00: area(s) 3 [facility] ointment 00 (three) Medical times Branch daily. nystatin 2020-0 Yes [id number] Apply to [facility] 100,000 2-05 affected ity of unit/gram 00:00: area(s) 3 [facility] as ointment 00 (three) Medical times Branch daily. nystatin 2020-0 Yes [id number] Apply to [facility] 100,000 2-05 affected ity of unit/gram 00:00: area(s) 3 [facility] ointment 00 (three) Medical times Branch daily. nystatin 2020-0 Yes [id number] Apply to [facility] 100,000 2-05 affected ity of unit/gram 00:00: area(s) 3 [facility] ointment 00 (three) Medical times Branch daily. nystatin 2020-0 Yes [id number] Apply to [facility] 100,000 2-05 affected ity of unit/gram 00:00: area(s) 3 [facility] as ointment 00 (three) Medical times Branch daily. nystatin 2020-0 Yes [id number] Apply to [facility] 100,000 2-05 affected ity of unit/gram 00:00: area(s) 3 [facility] ointment 00 (three) Medical times Branch daily. nystatin 2020-0 Yes [id number] Apply to [facility] 100,000 2-05 affected ity of unit/gram 00:00: area(s) 3 [facility] ointment 00 (three) Medical times Branch daily. nystatin 2020-0 Yes [id number] Apply to [facility] 100,000 2-05 affected ity of unit/gram 00:00: area(s) 3 [facility] ointment 00 (three) Medical times Branch daily. nystatin 2020-0 Yes [id number] Apply to [facility] 100,000 2-05 affected ity of unit/gram 00:00: area(s) 3 [facility] ointment 00 (three) Medical times Branch daily. nystatin 2020-0 Yes [id number] Apply to [facility] 100,000 2-05 affected ity of unit/gram 00:00: area(s) 3 [facility] ointment 00 (three) Medical times Branch daily. nystatin 2020-0 Yes [id number] Apply to [facility] 100,000 2-05 affected ity of unit/gram 00:00: area(s) 3 [facility] ointment 00 (three) Medical times Branch daily. nystatin 2020-0 Yes [id number] Apply to [facility] 100,000 2-05 affected ity of unit/gram 00:00: area(s) 3 [facility] ointment 00 (three) Medical times Branch daily. nystatin 2020-0 Yes [id number] Apply to [facility] 100,000 2-05 affected ity of unit/gram 00:00: area(s) 3 [facility] ointment 00 (three) Medical times Branch daily. nystatin 2020-0 Yes [id number] Apply to [facility] 100,000 2-05 affected ity of unit/gram 00:00: area(s) 3 [facility] ointment 00 (three) Medical times Branch daily. nystatin 2020-0 Yes [id number] Apply to [facility] 100,000 2-05 affected ity of unit/gram 00:00: area(s) 3 [facility] ointment 00 (three) Medical times Branch daily. nystatin 2020-0 Yes [id number] Apply to [facility] 100,000 2-05 affected ity of unit/gram 00:00: area(s) 3 [facility] as ointment 00 (three) Medical times Branch daily. nystatin 2020-0 Yes [id number] Apply to [facility] 100,000 2-05 affected ity of unit/gram 00:00: area(s) 3 [facility] ointment 00 (three) Medical times Branch daily. nystatin 2020-0 Yes [id number] Apply to [facility] 100,000 2-05 affected ity of unit/gram 00:00: area(s) 3 [facility] ointment 00 (three) Medical times Branch daily. nystatin 2020-0 Yes [id number] Apply to [facility] 100,000 2-05 affected ity of unit/gram 00:00: area(s) 3 [facility] as ointment 00 (three) Medical times Branch daily. nystatin 2020-0 Yes [id number] Apply to [facility] 100,000 2-05 affected ity of unit/gram 00:00: area(s) 3 [facility] as ointment 00 (three) Medical times Branch daily. nystatin 2020-0 Yes [id number] Apply to [facility] 100,000 2-05 affected ity of unit/gram 00:00: area(s) 3 [facility] as ointment 00 (three) Medical times Branch daily. nystatin 2020-0 Yes [id number] Apply to [facility] 100,000 2-05 affected ity of unit/gram 00:00: area(s) 3 [facility] ointment 00 (three) Medical times Branch daily. nystatin 2020-0 Yes [id number] Apply to [facility] 100,000 2-05 affected ity of unit/gram 00:00: area(s) 3 [facility] as ointment 00 (three) Medical times Branch daily. nystatin 2020-0 Yes [id number] Apply to [facility] 100,000 2-05 affected ity of unit/gram 00:00: area(s) 3 [facility] as ointment 00 (three) Medical times Branch daily. nystatin 2020-0 Yes [id number] Apply to [facility] 100,000 2-05 affected ity of unit/gram 00:00: area(s) 3 [facility] as ointment 00 (three) Medical times Branch daily. nystatin 2020-0 Yes [id number] Apply to [facility] 100,000 2-05 affected ity of unit/gram 00:00: area(s) 3 [facility] as ointment 00 (three) Medical times Branch daily. nystatin 2020-0 Yes [id number] Apply to [facility] 100,000 2-05 affected ity of unit/gram 00:00: area(s) 3 [facility] as ointment 00 (three) Medical times Branch daily. nystatin 2020-0 Yes [id number] Apply to [facility] 100,000 2-05 affected ity of unit/gram 00:00: area(s) 3 [facility] ointment 00 (three) Medical times Branch daily. nystatin 2020-0 Yes [id number] Apply to [facility] 100,000 2-05 affected ity of unit/gram 00:00: area(s) 3 [facility] ointment 00 (three) Medical times Branch daily. nystatin 2020-0 Yes [id number] Apply to [facility] 100,000 2-05 affected ity of unit/gram 00:00: area(s) 3 [facility] as ointment 00 (three) Medical times Branch daily. nystatin 2020-0 Yes [id number] Apply to [facility] 100,000 2-05 affected ity of unit/gram 00:00: area(s) 3 [facility] as ointment 00 (three) Medical times Branch daily. nystatin 2020-0 Yes [id number] Apply to [facility] 100,000 2-05 affected ity of unit/gram 00:00: area(s) 3 [facility] as ointment 00 (three) Medical times Branch daily. nystatin 2020-0 Yes [id number] Apply to [facility] 100,000 2-05 affected ity of unit/gram 00:00: area(s) 3 [facility] as ointment 00 (three) Medical times Branch daily. nystatin 2020-0 Yes [id number] Apply to [facility] 100,000 2-05 affected ity of unit/gram 00:00: area(s) 3 [facility] as ointment 00 (three) Medical times Branch daily. nystatin 2020-0 Yes [id number] Apply to [facility] 100,000 2-05 affected ity of unit/gram 00:00: area(s) 3 [facility] as ointment 00 (three) Medical times Branch daily. nystatin 2020-0 Yes [id number] Apply to [facility] 100,000 2-05 affected ity of unit/gram 00:00: area(s) 3 [facility] as ointment 00 (three) Medical times Branch daily. nystatin 2020-0 Yes [id number] Apply to [facility] 100,000 2-05 affected ity of unit/gram 00:00: area(s) 3 [facility] as ointment 00 (three) Medical times Branch daily. nystatin 2020-0 Yes [id number] Apply to [facility] 100,000 2-05 affected ity of unit/gram 00:00: area(s) 3 [facility] as ointment 00 (three) Medical times Branch daily. nystatin 2020-0 Yes [id number] Apply to [facility] 100,000 2-05 affected ity of unit/gram 00:00: area(s) 3 [facility] ointment 00 (three) Medical times Branch daily. nystatin 2020-0 Yes [id number] Apply to [facility] 100,000 2-05 affected ity of unit/gram 00:00: area(s) 3 [facility] ointment 00 (three) Medical times Branch daily. nystatin 2020-0 Yes [id number] Apply to [facility] 100,000 2-05 affected ity of unit/gram 00:00: area(s) 3 [facility] as ointment 00 (three) Medical times Branch daily. nystatin 2020-0 Yes [id number] Apply to [facility] 100,000 2-05 affected ity of unit/gram 00:00: area(s) 3 [facility] ointment 00 (three) Medical times Branch daily. nystatin 2020-0 Yes [id number] Apply to [facility] 100,000 2-05 affected ity of unit/gram 00:00: area(s) 3 [facility] ointment 00 (three) Medical times Branch daily. nystatin 2020-0 Yes [id number] Apply to [facility] 100,000 2-05 affected ity of unit/gram 00:00: area(s) 3 [facility] as ointment 00 (three) Medical times Branch daily. nystatin 2020-0 Yes [id number] Apply to [facility] 100,000 2-05 affected ity [...] ans Tablet Tablet 00 DIRECTED. medroxyPROG Yes [id number] 150mg [facility] ESTERone 5-14 ity of (DEPO-PROVE 18:30: [place] [facility]) 00 Medical injection Branch 150 mg medroxyPROG 2019-0 Yes [id number] 150mg [facility] ESTERone 5-14 ity of (DEPO-PROVE 18:30: [place] [facility]) 00 Medical injection Branch 150 mg medroxyPROG 2019-0 Yes [id number] 150mg [facility] ESTERone 5-14 ity of (DEPO-PROVE 18:30: [place] [facility]) 00 Medical injection Branch 150 mg medroxyPROG 2019-0 Yes [id number] 150mg [facility] ESTERone 5-14 ity of (DEPO-PROVE 18:30: [place] [facility]) 00 Medical injection Branch 150 mg medroxyPROG 2019-0 Yes [id number] 150mg [facility] ESTERone 5-14 ity of (DEPO-PROVE 18:30: [place] [facility]) 00 Medical injection Branch 150 mg medroxyPROG 2019-0 Yes [id number] 150mg [facility] ESTERone 5-14 ity of (DEPO-PROVE 18:30: [place] [facility]) 00 Medical injection Branch 150 mg medroxyPROG 2019-0 Yes [id number] 150mg [facility] ESTERone 5-14 ity of (DEPO-PROVE 18:30: [place] [facility]) 00 Medical injection Branch 150 mg medroxyPROG 2019-0 Yes [id number] 150mg [facility] ESTERone 5-14 ity of (DEPO-PROVE 18:30: [place] [facility]) 00 Medical injection Branch 150 mg medroxyPROG 2019-0 Yes [id number] 150mg [facility] ESTERone 5-14 ity of (DEPO-PROVE 18:30: [place] [facility]) 00 Medical injection Branch 150 mg medroxyPROG 2019-0 Yes [id number] 150mg [facility] ESTERone 5-14 ity of (DEPO-PROVE 18:30: [place] [facility]) 00 Medical injection Branch 150 mg medroxyPROG 2019-0 Yes [id number] 150mg [facility] ESTERone 5-14 ity of (DEPO-PROVE 18:30: [place] [facility]) 00 Medical injection Branch 150 mg medroxyPROG 2019-0 Yes [id number] 150mg [facility] ESTERone 5-14 ity of (DEPO-PROVE 18:30: [place] [facility]) 00 Medical injection Branch 150 mg medroxyPROG 2019-0 Yes [id number] 150mg [facility] ESTERone 5-14 ity of (DEPO-PROVE 18:30: [place] [facility]) 00 Medical injection Branch 150 mg medroxyPROG 2019-0 Yes [id number] 150mg [facility] ESTERone 5-14 ity of (DEPO-PROVE 18:30: [place] [facility]) 00 Medical injection Branch 150 mg medroxyPROG 2019-0 Yes [id number] 150mg [facility] ESTERone 5-14 ity of (DEPO-PROVE 18:30: [place] [facility]) 00 Medical injection Branch 150 mg medroxyPROG 2019-0 Yes [id number] 150mg [facility] ESTERone 5-14 ity of (DEPO-PROVE 18:30: [place] [facility]) 00 Medical injection Branch 150 mg medroxyPROG 2019-0 Yes [id number] 150mg [facility] ESTERone 5-14 ity of (DEPO-PROVE 18:30: [place] [facility]) 00 Medical injection Branch 150 mg medroxyPROG 2019-0 Yes [id number] 150mg [facility] ESTERone 5-14 ity of (DEPO-PROVE 18:30: [place] [facility]) 00 Medical injection Branch 150 mg medroxyPROG 2019-0 Yes [id number] 150mg [facility] ESTERone 5-14 ity of (DEPO-PROVE 18:30: [place] [facility]) 00 Medical injection Branch 150 mg medroxyPROG 2019-0 Yes [id number] 150mg [facility] ESTERone 5-14 ity of (DEPO-PROVE 18:30: [place] [facility]) 00 Medical injection Branch 150 mg medroxyPROG 2019-0 Yes [id number] 150mg [facility] ESTERone 5-14 ity of (DEPO-PROVE 18:30: [place] [facility]) 00 Medical injection Branch 150 mg medroxyPROG 2019-0 Yes [id number] 150mg [facility] ESTERone 5-14 ity of (DEPO-PROVE 18:30: [place] [facility]) 00 Medical injection Branch 150 mg medroxyPROG 2019-0 Yes [id number] 150mg [facility] ESTERone 5-14 ity of (DEPO-PROVE 18:30: [place] [facility]) 00 Medical injection Branch 150 mg medroxyPROG 2019-0 Yes [id number] 150mg [facility] ESTERone 5-14 ity of (DEPO-PROVE 18:30: [place] [facility]) 00 Medical injection Branch 150 mg medroxyPROG 2019-0 Yes [id number] 150mg [facility] ESTERone 5-14 ity of (DEPO-PROVE 18:30: [place] [facility]) 00 Medical injection Branch 150 mg medroxyPROG 2019-0 Yes [id number] 150mg [facility] ESTERone 5-14 ity of (DEPO-PROVE 18:30: [place] [facility]) 00 Medical injection Branch 150 mg medroxyPROG 2019-0 Yes [id number] 150mg [facility] ESTERone 5-14 ity of (DEPO-PROVE 18:30: [place] [facility]) 00 Medical injection Branch 150 mg medroxyPROG 2019-0 Yes [id number] 150mg [facility] ESTERone 5-14 ity of (DEPO-PROVE 18:30: [place] [facility]) 00 Medical injection Branch 150 mg medroxyPROG 2019-0 Yes [id number] 150mg [facility] ESTERone 5-14 ity of (DEPO-PROVE 18:30: [place] [facility]) 00 Medical injection Branch 150 mg medroxyPROG 2019-0 Yes [id number] 150mg [facility] ESTERone 5-14 ity of (DEPO-PROVE 18:30: [place] [facility]) 00 Medical injection Branch 150 mg medroxyPROG 2019-0 Yes [id number] 150mg [facility] ESTERone 5-14 ity of (DEPO-PROVE 18:30: [place] [facility]) 00 Medical injection Branch 150 mg medroxyPROG 2019-0 Yes [id number] 150mg [facility] ESTERone 5-14 ity of (DEPO-PROVE 18:30: [place] [facility]) 00 Medical injection Branch 150 mg medroxyPROG 2019-0 Yes [id number] 150mg [facility] ESTERone 5-14 ity of (DEPO-PROVE 18:30: [place] [facility]) 00 Medical injection Branch 150 mg medroxyPROG 2019-0 Yes [id number] 150mg [facility] ESTERone 5-14 ity of (DEPO-PROVE 18:30: [place] [facility]) 00 Medical injection Branch 150 mg medroxyPROG 2019-0 Yes [id number] 150mg [facility] ESTERone 5-14 ity of (DEPO-PROVE 18:30: [place] [facility]) 00 Medical injection Branch 150 mg medroxyPROG 2019-0 Yes [id number] 150mg [facility] ESTERone 5-14 ity of (DEPO-PROVE 18:30: [place] [facility]) 00 Medical injection Branch 150 mg medroxyPROG 2019-0 Yes [id number] 150mg [facility] ESTERone 5-14 ity of (DEPO-PROVE 18:30: [place] [facility]) 00 Medical injection Branch 150 mg medroxyPROG 2019-0 Yes [id number] 150mg [facility] ESTERone 5-14 ity of (DEPO-PROVE 18:30: [place] [facility]) 00 Medical injection Branch 150 mg medroxyPROG 2019-0 Yes [id number] 150mg [facility] ESTERone 5-14 ity of (DEPO-PROVE 18:30: [place] [facility]) 00 Medical injection Branch 150 mg medroxyPROG 2019-0 Yes [id number] 150mg [facility] ESTERone 5-14 ity of (DEPO-PROVE 18:30: [place] [facility]) 00 Medical injection Branch 150 mg medroxyPROG 2019-0 Yes [id number] 150mg [facility] ESTERone 5-14 ity of (DEPO-PROVE 18:30: [place] [facility]) 00 Medical injection Branch 150 mg medroxyPROG 2019-0 Yes [id number] 150mg [facility] ESTERone 5-14 ity of (DEPO-PROVE 18:30: [place] [facility]) 00 Medical injection Branch 150 mg medroxyPROG 2019-0 Yes [id number] 150mg [facility] ESTERone 5-14 [facility]y of (DEPO-PROVE 18:30: [place] [facility]) 00 [facility] 150 mg medroxyPROG 2019-0 Yes [id number] 150mg [facility] ESTERone 5-14 ity of (DEPO-PROVE 18:30: [place] [facility]) 00 [facility] 150 mg medroxyPROG 2019-0 Yes [id number] 150mg [facility] ESTERone 5-14 ity of (DEPO-PROVE 18:30: [place] [facility]) 00 [facility] 150 mg medroxyPROG 2019-0 Yes [id number] 150mg [facility] ESTERone 5-14 ity of (DEPO-PROVE 18:30: [place] [facility]) 00 [facility] 150 mg medroxyPROG 2019-0 Yes [id number] 150mg [facility] ESTERone 5-14 ity of (DEPO-PROVE 18:30: [place] [facility]) 00 [facility] 150 mg medroxyPROG 2019-0 Yes [id number] 150mg [facility] ESTERone 5-14 ity of (DEPO-PROVE 18:30: [place] [facility]) 00 [facility] 150 mg medroxyPROG 2019-0 Yes [id number] 150mg [facility] ESTERone 5-14 ity of (DEPO-PROVE 18:30: [place] [facility]) 00 [facility] 150 mg medroxyPROG 2019-0 Yes [id number] 150mg [facility] ESTERone 5-14 ity of (DEPO-PROVE 18:30: [place] [facility]) 00 [facility] 150 mg medroxyPROG 2019-0 Yes [id number] 150mg [facility] ESTERone 5-14 ity of (DEPO-PROVE 18:30: [place] [facility]) 00 [facility] 150 mg medroxyPROG 2019-0 Yes [id number] 150mg [facility] ESTERone 5-14 ity of (DEPO-PROVE 18:30: [place] [facility]) 00 [facility] 150 mg medroxyPROG 2019-0 Yes [id number] 150mg [facility] ESTERone 5-14 ity of (DEPO-PROVE 18:30: [place] [facility]) 00 [facility] 150 mg medroxyPROG 2019-0 Yes [id number] 150mg [facility] ESTERone 5-14 ity of (DEPO-PROVE 18:30: [place] [facility]) 00 [facility] 150 mg medroxyPROG 2019-0 Yes [id number] 150mg [facility] ESTERone 5-14 ity of (DEPO-PROVE 18:30: [place] [facility]) 00 [facility] injection [facility] 150 mg medroxyPROG 2019-0 Yes [id number] 150mg [facility] ESTERone 5-14 ity of (DEPO-PROVE 18:30: [place] [facility]) 00 [facility] 150 mg medroxyPROG 2019-0 Yes [id number] 150mg [facility] ESTERone 5-14 ity of (DEPO-PROVE 18:30: [place] [facility]) 00 [facility] injection [facility] 150 mg medroxyPROG 2019-0 Yes [id number] 150mg [facility] ESTERone 5-14 ity of (DEPO-PROVE 18:30: [place] [facility]) 00 [facility] 150 mg medroxyPROG 2019-0 Yes [id number] 150mg [facility] ESTERone 5-14 ity of (DEPO-PROVE 18:30: [place] [facility]) 00 [facility] 150 mg medroxyPROG 2019-0 Yes [id number] 150mg [facility] ESTERone 5-14 ity of (DEPO-PROVE 18:30: [place] [facility]) 00 [facility] injection [facility] 150 mg medroxyPROG 2019-0 Yes [id number] 150mg [facility] ESTERone 5-14 ity of (DEPO-PROVE 18:30: [place] [facility]) 00 [facility] injection [facility] 150 mg medroxyPROG 2019-0 Yes [id number] 150mg [facility] ESTERone 5-14 ity of (DEPO-PROVE 18:30: [place] [facility]) 00 [facility] injection [facility] 150 mg medroxyPROG 2019-0 Yes [id number] 150mg [facility] ESTERone 5-14 ity of (DEPO-PROVE 18:30: [place] [facility]) 00 [facility] injection [facility] 150 mg medroxyPROG 2019-0 Yes [id number] 150mg [facility] ESTERone 5-14 ity of (DEPO-PROVE 18:30: [place] [facility]) 00 [facility] injection [facility] 150 mg medroxyPROG 2019-0 Yes [id number] 150mg [facility] ESTERone 5-14 ity of (DEPO-PROVE 18:30: [place] [facility]) 00 [facility] injection [facility] 150 mg medroxyPROG 2019-0 Yes [id number] 150mg [facility] ESTERone 5-14 ity of (DEPO-PROVE 18:30: [place] [facility]) 00 [facility] injection [facility] 150 mg Keppra 500 Keppra 500 2018-0 Yes M.D. U T MG Oral MG Oral 1-02 Physici Tablet Tablet 00:00: ans 00 Immunizations Ordered Immunization Filled Date Status Comments Sour ce Name Immunization Name SARS-COV-2 COVID-19 2021-08-06 Completed [facility] of PFIZER VACCINE 00:00:00 [facility] Branch SARS-COV-2 COVID-19 2021-08-06 Completed Unive rsity of PFIZER VACCINE 00:00:00 [facility] SARS-COV-2 COVID-19 2021-08-06 Completed Unive rsity of PFIZER VACCINE 00:00:00 [facility] Branch SARS-COV-2 COVID-19 2021-08-06 Completed Unive rsity of PFIZER VACCINE 00:00:00 [facility] SARS-COV-2 COVID-19 2021-08-06 Completed Unive rsity of PFIZER VACCINE 00:00:00 [facility] Branch SARS-COV-2 COVID-19 2021-08-06 Completed Unive rsity of PFIZER VACCINE 00:00:00 [facility] SARS-COV-2 COVID-19 2021-08-06 Completed Unive rsity of PFIZER VACCINE 00:00:00 [facility] SARS-COV-2 COVID-19 2021-08-06 Completed Unive rsity of PFIZER VACCINE 00:00:00 [facility] SARS-COV-2 COVID-19 2021-08-06 Completed Unive rsity of PFIZER VACCINE 00:00:00 [facility] SARS-COV-2 COVID-19 2021-08-06 Completed Unive rsity of PFIZER VACCINE 00:00:00 [facility] SARS-COV-2 COVID-19 2021-08-06 Completed Unive rsity of PFIZER VACCINE 00:00:00 [facility] SARS-COV-2 COVID-19 2021-08-06 Completed Unive rsity of PFIZER VACCINE 00:00:00 [facility] SARS-COV-2 COVID-19 2021-08-06 Completed Unive rsity of PFIZER VACCINE 00:00:00 [facility] SARS-COV-2 COVID-19 2021-08-06 Completed Unive rsity of PFIZER VACCINE 00:00:00 [facility] SARS-COV-2 COVID-19 2021-08-06 Completed Unive rsity of PFIZER VACCINE 00:00:00 [facility] SARS-COV-2 COVID-19 2021-08-06 Completed Unive rsity of PFIZER VACCINE 00:00:00 [facility] SARS-COV-2 COVID-19 2021-08-06 Completed Unive rsity of PFIZER VACCINE 00:00:00 [facility] SARS-COV-2 COVID-19 2021-08-06 Completed Unive rsity of PFIZER VACCINE 00:00:00 [facility] SARS-COV-2 COVID-19 2021-08-06 Completed Unive rsity of PFIZER VACCINE 00:00:00 [facility] SARS-COV-2 COVID-19 2021-08-06 Completed Unive rsity of PFIZER VACCINE 00:00:00 [facility] SARS-COV-2 COVID-19 2021-08-06 Completed Unive rsity of PFIZER VACCINE 00:00:00 [facility] SARS-COV-2 COVID-19 2021-08-06 Completed Unive rsity of PFIZER VACCINE 00:00:00 [facility] SARS-COV-2 COVID-19 2021-08-06 Completed Unive rsity of PFIZER VACCINE 00:00:00 [facility] SARS-COV-2 COVID-19 2021-08-06 Completed Unive rsity of PFIZER VACCINE 00:00:00 [facility] SARS-COV-2 COVID-19 2021-08-06 Completed Unive rsity of PFIZER VACCINE 00:00:00 [facility] SARS-COV-2 COVID-19 2021-08-06 Completed Unive rsity of PFIZER VACCINE 00:00:00 [facility] SARS-COV-2 COVID-19 2021-08-06 Completed Unive rsity of PFIZER VACCINE 00:00:00 [facility] SARS-COV-2 COVID-19 2021-08-06 Completed Unive rsity of PFIZER VACCINE 00:00:00 [facility] SARS-COV-2 COVID-19 2021-08-06 Completed Unive rsity of PFIZER VACCINE 00:00:00 [facility] PFIZER COVID-19 MRNA 2021-08-06 Completed [facility] VACCINATION 00:00:00 Hospital PFIZER COVID-19 MRNA 2021-08-06 Completed Meth odist VACCINATION 00:00:00 [facility] PFIZER COVID-19 MRNA 2021-08-06 Completed Meth odist VACCINATION 00:00:00 [facility] PFIZER COVID-19 MRNA 2021-08-06 Completed Meth odist VACCINATION 00:00:00 [facility] PFIZER COVID-19 MRNA 2021-08-06 Completed [facility] odist VACCINATION 00:00:00 Hospital PFIZER COVID-19 MRNA 2021-08-06 Completed [facility] odist VACCINATION 00:00:00 Hospital PFIZER COVID-19 MRNA 2021-08-06 Completed [facility] od[facility] VACCINATION 00:00:00 Hospital PFIZER COVID-19 MRNA 2021-08-06 Completed [facility] od[facility] VACCINATION 00:00:00 Hospital PFIZER COVID-19 MRNA 2021-08-06 Completed Meth odist VACCINATION 00:00:00 Hospital SARS-COV-2 COVID-19 2021-07-09 Completed Unive rsity of PFIZER VACCINE 00:00:00 [facility] Branch Influenza Virus 2021-07-09 Completed Universit y of Vaccine Quad .5 mL 00:00:00 [place] [facility] 6+ MO [facility] SARS-COV-2 COVID-19 2021-07-09 Completed Unive rsity of PFIZER VACCINE 00:00:00 [facility] Branch Influenza Virus 2021-07-09 Completed Universit y of Vaccine Quad .5 mL 00:00:00 [place] [facility] 6+ MO Branch SARS-COV-2 COVID-19 2021-07-09 Completed Unive rsity of PFIZER VACCINE 00:00:00 [facility] Influenza Virus 2021-07-09 Completed Universit y of Vaccine Quad .5 mL 00:00:00 [place] [facility] 6+ MO Branch SARS-COV-2 COVID-19 2021-07-09 Completed Unive rsity of PFIZER VACCINE 00:00:00 [facility] Influenza Virus 2021-07-09 Completed Universit y of Vaccine Quad .5 mL 00:00:00 [place] [facility] 6+ MO Branch SARS-COV-2 COVID-19 2021-07-09 Completed Unive rsity of PFIZER VACCINE 00:00:00 [facility] Influenza Virus 2021-07-09 Completed Universit y of Vaccine Quad .5 mL 00:00:00 [place] [facility] 6+ MO Branch SARS-COV-2 COVID-19 2021-07-09 Completed Unive rsity of PFIZER VACCINE 00:00:00 [facility] Influenza Virus 2021-07-09 Completed Universit y of Vaccine Quad .5 mL 00:00:00 [place] [facility] 6+ MO Branch SARS-COV-2 COVID-19 2021-07-09 Completed Unive rsity of PFIZER VACCINE 00:00:00 [place] [facility] Influenza Virus 2021-07-09 Completed Universit y of Vaccine Quad .5 mL 00:00:00 [place] [facility] 6+ MO Branch SARS-COV-2 COVID-19 2021-07-09 Completed Unive rsity of PFIZER VACCINE 00:00:00 [facility] Influenza Virus 2021-07-09 Completed Universit y of Vaccine Quad .5 mL 00:00:00 [place] [facility] 6+ MO Branch SARS-COV-2 COVID-19 2021-07-09 Completed Unive rsity of PFIZER VACCINE 00:00:00 [facility] Influenza Virus 2021-07-09 Completed Universit y of Vaccine Quad .5 mL 00:00:00 [place] [facility] 6+ MO Branch SARS-COV-2 COVID-19 2021-07-09 Completed Unive rsity of PFIZER VACCINE 00:00:00 [facility] Influenza Virus 2021-07-09 Completed Universit y of Vaccine Quad .5 mL 00:00:00 [place] [facility] 6+ MO Branch SARS-COV-2 COVID-19 2021-07-09 Completed Unive rsity of PFIZER VACCINE 00:00:00 [facility] Influenza Virus 2021-07-09 Completed Universit y of Vaccine Quad .5 mL 00:00:00 [place] [facility] 6+ MO Branch SARS-COV-2 COVID-19 2021-07-09 Completed Unive rsity of PFIZER VACCINE 00:00:00 [facility] Influenza Virus 2021-07-09 Completed Universit y of Vaccine Quad .5 mL 00:00:00 [place] [facility] 6+ MO Branch SARS-COV-2 COVID-19 2021-07-09 Completed Unive rsity of PFIZER VACCINE 00:00:00 [facility] Influenza Virus 2021-07-09 Completed Universit y of Vaccine Quad .5 mL 00:00:00 [place] [facility] 6+ MO Branch SARS-COV-2 COVID-19 2021-07-09 Completed Unive rsity of PFIZER VACCINE 00:00:00 [facility] Influenza Virus 2021-07-09 Completed Universit y of Vaccine Quad .5 mL 00:00:00 [place] [facility] 6+ MO Branch SARS-COV-2 COVID-19 2021-07-09 Completed Unive rsity of PFIZER VACCINE 00:00:00 [facility] Influenza Virus 2021-07-09 Completed Universit y of Vaccine Quad .5 mL 00:00:00 [place] [facility] 6+ MO Branch SARS-COV-2 COVID-19 2021-07-09 Completed Unive rsity of PFIZER VACCINE 00:00:00 [facility] Influenza Virus 2021-07-09 Completed Universit y of Vaccine Quad .5 mL 00:00:00 [place] [facility] 6+ MO Branch SARS-COV-2 COVID-19 2021-07-09 Completed Unive rsity of PFIZER VACCINE 00:00:00 [facility] Influenza Virus 2021-07-09 Completed Universit y of Vaccine Quad .5 mL 00:00:00 [place] [facility] 6+ MO Branch SARS-COV-2 COVID-19 2021-07-09 Completed Unive rsity of PFIZER VACCINE 00:00:00 [facility] Influenza Virus 2021-07-09 Completed Universit y of Vaccine Quad .5 mL 00:00:00 [place] [facility] 6+ MO Branch SARS-COV-2 COVID-19 2021-07-09 Completed Unive rsity of PFIZER VACCINE 00:00:00 [facility] Influenza Virus 2021-07-09 Completed Universit y of Vaccine Quad .5 mL 00:00:00 [place] [facility] 6+ MO Branch SARS-COV-2 COVID-19 2021-07-09 Completed Unive rsity of PFIZER VACCINE 00:00:00 [facility] Influenza Virus 2021-07-09 Completed Universit y of Vaccine Quad .5 mL 00:00:00 [place] [facility] 6+ MO Branch SARS-COV-2 COVID-19 2021-07-09 Completed Unive rsity of PFIZER VACCINE 00:00:00 [facility] Influenza Virus 2021-07-09 Completed Universit y of Vaccine Quad .5 mL 00:00:00 [place] [facility] 6+ MO Branch SARS-COV-2 COVID-19 2021-07-09 Completed Unive rsity of PFIZER VACCINE 00:00:00 [facility] Influenza Virus 2021-07-09 Completed Universit y of Vaccine Quad .5 mL 00:00:00 [place] [facility] 6+ MO Branch SARS-COV-2 COVID-19 2021-07-09 Completed Unive rsity of PFIZER VACCINE 00:00:00 [facility] Influenza Virus 2021-07-09 Completed Universit y of Vaccine Quad .5 mL 00:00:00 [place] [facility] 6+ MO Branch SARS-COV-2 COVID-19 2021-07-09 Completed Unive rsity of PFIZER VACCINE 00:00:00 [facility] Influenza Virus 2021-07-09 Completed Universit y of Vaccine Quad .5 mL 00:00:00 [place] [facility] 6+ MO Branch SARS-COV-2 COVID-19 2021-07-09 Completed Unive rsity of PFIZER VACCINE 00:00:00 [facility] Influenza Virus 2021-07-09 Completed Universit y of Vaccine Quad .5 mL 00:00:00 [place] [facility] 6+ MO Branch SARS-COV-2 COVID-19 2021-07-09 Completed Unive rsity of PFIZER VACCINE 00:00:00 [facility] Influenza Virus 2021-07-09 Completed Universit y of Vaccine Quad .5 mL 00:00:00 [facility] 6+ MO Branch SARS-COV-2 COVID-19 2021-07-09 Completed Unive rsity of PFIZER VACCINE 00:00:00 [facility] Influenza Virus 2021-07-09 Completed Universit y of Vaccine Quad .5 mL 00:00:00 [facility] 6+ MO Branch (FLUZONE/FLULAVAL/FL UARIX) SARS-COV-2 COVID-19 2021-07-09 Completed Unive rsity of PFIZER VACCINE 00:00:00 [facility] Influenza Virus 2021-07-09 Completed Universit y of Vaccine Quad .5 mL 00:00:00 [facility] IM 6+ MO Branch (FLUZONE/FLULAVAL/FL UARIX) SARS-COV-2 COVID-19 2021-07-09 Completed Unive rsity of PFIZER VACCINE 00:00:00 [facility] Influenza Virus 2021-07-09 Completed Universit y of Vaccine Quad .5 mL 00:00:00 [place] [facility] 6+ MO Branch (FLUZONE/FLULAVAL/FL UARIX) PFIZER COVID-19 MRNA 2021-07-09 Completed Meth odist VACCINATION 00:00:00 [facility] PFIZER COVID-19 MRNA 2021-07-09 Completed Meth odist VACCINATION 00:00:00 [facility] PFIZER COVID-19 MRNA 2021-07-09 Completed Meth odist VACCINATION 00:00:00 [facility] PFIZER COVID-19 MRNA 2021-07-09 Completed Meth odist VACCINATION 00:00:00 [facility] PFIZER COVID-19 MRNA 2021-07-09 Completed Meth odist VACCINATION 00:00:00 [facility] PFIZER COVID-19 MRNA 2021-07-09 Completed Meth odist VACCINATION 00:00:00 [facility] PFIZER COVID-19 MRNA 2021-07-09 Completed Meth odist VACCINATION 00:00:00 [facility] PFIZER COVID-19 MRNA 2021-07-09 Completed Meth odist VACCINATION 00:00:00 [facility] PFIZER COVID-19 MRNA 2021-07-09 Completed Meth odist VACCINATION 00:00:00 [facility] PFIZER COVID-19 MRNA 2021-07-09 Completed Meth odist VACCINATION 00:00:00 [facility] PFIZER COVID-19 MRNA 2021-07-09 Completed Meth odist VACCINATION 00:00:00 [facility] Tetanus/Diptheria 2016-08-11 Completed Univers ity of 00:00:00 [facility] Varicella 2016-08-11 Completed University of (varivax)(chicken 00:00:00 [place] [facility] pox) [facility] Tetanus/Diptheria 2016-08-11 Completed Univers ity of 00:00:00 [facility] Varicella 2016-08-11 Completed University of (varivax)(chicken 00:00:00 [place] [facility] pox) [facility] Tetanus/Diptheria 2016-08-11 Completed Univers ity of 00:00:00 [facility] Varicella 2016-08-11 Completed University of (varivax)(chicken 00:00:00 [place] [facility] pox) [facility] Tetanus/Diptheria 2016-08-11 Completed Univers ity of 00:00:00 [facility] Varicella 2016-08-11 Completed University of (varivax)(chicken 00:00:00 [place] [facility] pox) [facility] Tetanus/Diptheria 2016-08-11 Completed Univers ity of 00:00:00 [facility] Varicella 2016-08-11 Completed University of (varivax)(chicken 00:00:00 [place] [facility] pox) [facility] Tetanus/Diptheria 2016-08-11 Completed Univers ity of 00:00:00 [facility] Varicella 2016-08-11 Completed University of (varivax)(chicken 00:00:00 [place] [facility] pox) [facility] Tetanus/Diptheria 2016-08-11 Completed Univers ity of 00:00:00 [facility] Varicella 2016-08-11 Completed University of (varivax)(chicken 00:00:00 [place] [facility] pox) [facility] Tetanus/Diptheria 2016-08-11 Completed Univers ity of 00:00:00 [facility] Varicella 2016-08-11 Completed University of (varivax)(chicken 00:00:00 [place] [facility] pox) [facility] Tetanus/Diptheria 2016-08-11 Completed Univers ity of 00:00:00 [facility] Varicella 2016-08-11 Completed University of (varivax)(chicken 00:00:00 [place] [facility] pox) [facility] Tetanus/Diptheria 2016-08-11 Completed Univers ity of 00:00:00 [facility] Varicella 2016-08-11 Completed University of (varivax)(chicken 00:00:00 [place] [facility] pox) [facility] Tetanus/Diptheria 2016-08-11 Completed Univers ity of 00:00:00 [facility] Varicella 2016-08-11 Completed University of (varivax)(chicken 00:00:00 [place] [facility] pox) [facility] Tetanus/Diptheria 2016-08-11 Completed Univers ity of 00:00:00 [facility] Varicella 2016-08-11 Completed University of (varivax)(chicken 00:00:00 [place] [facility] pox) [facility] Tetanus/Diptheria 2016-08-11 Completed Univers ity of 00:00:00 [facility] Varicella 2016-08-11 Completed University of (varivax)(chicken 00:00:00 [place] [facility] pox) [facility] Tetanus/Diptheria 2016-08-11 Completed Univers ity of 00:00:00 [facility] Varicella 2016-08-11 Completed University of (varivax)(chicken 00:00:00 [place] [facility] pox) [facility] Tetanus/Diptheria 2016-08-11 Completed Univers ity of 00:00:00 [facility] Varicella 2016-08-11 Completed University of (varivax)(chicken 00:00:00 [place] [facility] pox) [facility] Tetanus/Diptheria 2016-08-11 Completed Univers ity of 00:00:00 [facility] Varicella 2016-08-11 Completed University of (varivax)(chicken 00:00:00 [place] [facility] pox) [facility] Tetanus/Diptheria 2016-08-11 Completed Univers ity of 00:00:00 [facility] Varicella 2016-08-11 Completed University of (varivax)(chicken 00:00:00 [place] [facility] pox) Branch Tetanus/Diptheria 2016-08-11 Completed Univers ity of 00:00:00 [facility] Varicella 2016-08-11 Completed University of (varivax)(chicken 00:00:00 [place] [facility] pox) [facility] Tetanus/Diptheria 2016-08-11 Completed Univers ity of 00:00:00 [facility] Varicella 2016-08-11 Completed University of (varivax)(chicken 00:00:00 [place] [facility] pox) Branch Tetanus/Diptheria 2016-08-11 Completed Univers ity of 00:00:00 [facility] Varicella 2016-08-11 Completed University of (varivax)(chicken 00:00:00 [place] [facility] pox) [facility] Tetanus/Diptheria 2016-08-11 Completed Univers ity of 00:00:00 [facility] Varicella 2016-08-11 Completed University of (varivax)(chicken 00:00:00 [place] [facility] pox) [facility] Tetanus/Diptheria 2016-08-11 Completed Univers ity of 00:00:00 [facility] Varicella 2016-08-11 Completed University of (varivax)(chicken 00:00:00 [place] [facility] pox) [facility] Tetanus/Diptheria 2016-08-11 Completed Univers ity of 00:00:00 [facility] Varicella 2016-08-11 Completed University of (varivax)(chicken 00:00:00 [place] [facility] pox) [facility] Tetanus/Diptheria 2016-08-11 Completed Univers ity of 00:00:00 [facility] Varicella 2016-08-11 Completed University of (varivax)(chicken 00:00:00 [place] [facility] pox) [facility] Tetanus/Diptheria 2016-08-11 Completed Univers ity of 00:00:00 [facility] Varicella 2016-08-11 Completed [facility] of (varivax)(chicken 00:00:00 [place] [facility] pox) [facility] Tetanus/Diptheria 2016-08-11 Completed Univers ity of 00:00:00 [facility] Varicella 2016-08-11 Completed [facility] of (varivax)(chicken 00:00:00 [place] [facility] pox) [facility] Tetanus/Diptheria 2016-08-11 Completed Univers [facility]y of 00:00:00 [facility] Varicella 2016-08-11 Completed [facility] of (varivax)(chicken 00:00:00 [place] [facility] pox) [facility] Tetanus/Diptheria 2016-08-11 Completed Univers ity of 00:00:00 [facility] Varicella 2016-08-11 Completed [facility] of (varivax)(chicken 00:00:00 [place] [facility] pox) [facility] Tetanus/Diptheria 2016-08-11 Completed Univers ity of 00:00:00 [facility] Varicella 2016-08-11 Completed University [...] HEPATITIS A 2008-09-27 Completed University of 00:00:00 [facility] HPV 2008-09-27 Completed University of 00:00:00 [facility] HEPATITIS A 2008-09-27 Completed University [...] Branch HPV 2008-09-27 Completed University of 00:00:00 [facility] HEPATITIS A 2008-09-27 Completed University of 00:00:00 [facility] HPV 2008-09-27 Completed University of 00:00:00 [facility] HEPATITIS A 2008-09-27 Completed University of 00:00:00 [facility] HPV 2008-09-27 Completed University of 00:00:00 [facility] HEPATITIS A 2008-09-27 Completed University of 00:00:00 [facility] HPV 2008-09-27 Completed University of 00:00:00 [facility] HEPATITIS A 2008-09-27 Completed University of 00:00:00 [facility] HPV 2008-09-27 Completed University of 00:00:00 [facility] HEPATITIS A 2008-09-27 Completed University of 00:00:00 [facility] HPV 2008-09-27 Completed University of 00:00:00 [facility] HEPATITIS A 2008-09-27 Completed University [...] Branch HPV 2008-03-06 Completed University of 00:00:00 [facility] HEPATITIS A 2008-03-06 Completed University [...] Completed University of 00:00:00 [facility] Meningococcal 2007-12-29 Completed [facility] of Polysaccharide 00:00:00 [place] [facility] (groups A, C, Y and Branc h W-135) conjugate vaccine (MCV4P) TDAP 2007-12-29 Completed University of 00:00:00 [facility] Meningococcal 2007-12-29 Completed University of Polysaccharide 00:00:00 [place] [facility] (groups A, C, Y and Branc h W-135) conjugate vaccine (MCV4P) TDAP 2007-12-29 Completed University of 00:00:00 [facility] Meningococcal 2007-12-29 Completed [facility] of Polysaccharide 00:00:00 [place] [facility] (groups A, C, Y and Branc h W-135) conjugate vaccine (MCV4P) TDAP 2007-12-29 Completed University of 00:00:00 [facility] Meningococcal 2007-12-29 Completed [facility] of Polysaccharide 00:00:00 [place] [facility] (groups A, C, Y and Branc h W-135) conjugate vaccine (MCV4P) TDAP 2007-12-29 Completed University of 00:00:00 [facility] Meningococcal 2007-12-29 Completed [facility] of Polysaccharide 00:00:00 [place] [facility] (groups A, C, Y and Branc h W-135) conjugate vaccine (MCV4P) TDAP 2007-12-29 Completed University of 00:00:00 [facility] Meningococcal 2007-12-29 Completed [facility] of Polysaccharide 00:00:00 [place] [facility] (groups A, C, Y and Branc h W-135) conjugate vaccine (MCV4P) TDAP 2007-12-29 Completed University of 00:00:00 [facility] Meningococcal 2007-12-29 Completed [facility] Polysaccharide 00:00:00 [place] [facility] (groups A, C, Y and Branc h W-135) conjugate vaccine (MCV4P) TDAP 2007-12-29 Completed [facility] 00:00:00 [facility] Meningococcal 2007-12-29 Completed [facility] Polysaccharide 00:00:00 [facility] (groups A, C, Y and Branc h W-135) conjugate vaccine (MCV4P) TDAP 2007-12-29 Completed [facility] 00:00:00 [facility] Meningococcal 2007-12-29 Completed [facility] Polysaccharide 00:00:00 [facility] (groups A, C, Y and Branc h W-135) conjugate vaccine (MCV4P) TDAP 2007-12-29 Completed [facility] 00:00:00 [facility] Meningococcal 2007-12-29 Completed [facility] Polysaccharide 00:00:00 [facility] (groups A, C, Y and Branc h W-135) conjugate vaccine (MCV4P) TDAP 2007-12-29 Completed [facility] 00:00:00 [facility] Meningococcal 2007-12-29 Completed [facility] Polysaccharide 00:00:00 [place] [facility] (groups A, C, Y and Branc h W-135) conjugate vaccine (MCV4P) TDAP 2007-12-29 Completed [facility] 00:00:00 [facility] Meningococcal 2007-12-29 Completed [facility] Polysaccharide 00:00:00 [place] [facility] (groups A, C, Y and Branc h W-135) conjugate vaccine (MCV4P) TDAP 2007-12-29 Completed [facility] 00:00:00 [facility] Meningococcal 2007-12-29 Completed [facility] Polysaccharide 00:00:00 [place] [facility] (groups A, C, Y and Branc h W-135) conjugate vaccine (MCV4P) TDAP 2007-12-29 Completed [facility] 00:00:00 [facility] Meningococcal 2007-12-29 Completed [facility] Polysaccharide 00:00:00 [place] [facility] (groups A, C, Y and Branc h W-135) conjugate vaccine (MCV4P) TDAP 2007-12-29 Completed [facility] 00:00:00 [facility] Meningococcal 2007-12-29 Completed [facility] Polysaccharide 00:00:00 [place] [facility] (groups A, C, Y and Branc h W-135) conjugate vaccine (MCV4P) TDAP 2007-12-29 Completed [facility] 00:00:00 [facility] Meningococcal 2007-12-29 Completed [facility] Polysaccharide 00:00:00 [place] [facility] (groups A, C, Y and Branc h W-135) conjugate vaccine (MCV4P) TDAP 2007-12-29 Completed [facility] 00:00:00 [facility] Meningococcal 2007-12-29 Completed [facility] Polysaccharide 00:00:00 [place] [facility] (groups A, C, Y and Branc h W-135) conjugate vaccine (MCV4P) TDAP 2007-12-29 Completed [facility] 00:00:00 [facility] Meningococcal 2007-12-29 Completed [facility] Polysaccharide 00:00:00 [place] [facility] (groups A, C, Y and Branc h W-135) conjugate vaccine (MCV4P) TDAP 2007-12-29 Completed [facility] 00:00:00 [facility] Meningococcal 2007-12-29 Completed [facility] Polysaccharide 00:00:00 [place] [facility] (groups A, C, Y and Branc h W-135) conjugate vaccine (MCV4P) TDAP 2007-12-29 Completed [facility] 00:00:00 [facility] Meningococcal 2007-12-29 Completed [facility] Polysaccharide 00:00:00 [place] [facility] (groups A, C, Y and Branc h W-135) conjugate vaccine (MCV4P) TDAP 2007-12-29 Completed [facility] 00:00:00 [facility] Meningococcal 2007-12-29 Completed [facility] Polysaccharide 00:00:00 [place] [facility] (groups A, C, Y and Branc h W-135) conjugate vaccine (MCV4P) TDAP 2007-12-29 Completed [facility] 00:00:00 [facility] Meningococcal 2007-12-29 Completed [facility] Polysaccharide 00:00:00 [place] [facility] (groups A, C, Y and Branc h W-135) conjugate vaccine (MCV4P) TDAP 2007-12-29 Completed [facility] 00:00:00 [facility] Meningococcal 2007-12-29 Completed [facility] Polysaccharide 00:00:00 [place] [facility] (groups A, C, Y and Branc h W-135) conjugate vaccine (MCV4P) TDAP 2007-12-29 Completed [facility] 00:00:00 [facility] Meningococcal 2007-12-29 Completed [facility] Polysaccharide 00:00:00 [place] [facility] (groups A, C, Y and Branc h W-135) conjugate vaccine (MCV4P) TDAP 2007-12-29 Completed [facility] 00:00:00 [facility] Meningococcal 2007-12-29 Completed [facility] Polysaccharide 00:00:00 [place] [facility] (groups A, C, Y and Branc h W-135) conjugate vaccine (MCV4P) TDAP 2007-12-29 Completed [facility] 00:00:00 [facility] Meningococcal 2007-12-29 Completed [facility] Polysaccharide 00:00:00 [place] [facility] (groups A, C, Y and Branc h W-135) conjugate vaccine (MCV4P) TDAP 2007-12-29 Completed [facility] 00:00:00 [facility] Meningococcal 2007-12-29 Completed [facility] Polysaccharide 00:00:00 [place] [facility] (groups A, C, Y and Branc h W-135) conjugate vaccine (MCV4P) TDAP 2007-12-29 Completed [facility] 00:00:00 [facility] Meningococcal 2007-12-29 Completed [facility] Polysaccharide 00:00:00 [place] [facility] (groups A, C, Y and Branc h W-135) conjugate vaccine (MCV4P) TDAP 2007-12-29 Completed [facility] 00:00:00 [facility] Meningococcal 2007-12-29 Completed [facility] Polysaccharide 00:00:00 [place] [facility] (groups A, C, Y and Branc h W-135) conjugate vaccine (MCV4P) TDAP 2007-12-29 Completed [facility] 00:00:00 [facility] DTaP, Unspecified 1998-01-03 Completed [facility] Formulation 00:00:00 [facility] Hep B, Adol or Pedi 1998-01-03 Completed [facility] of Dosage 00:00:00 [facility] Poliovirus, Live, 1998-01-03 Completed [facility] Oral, Trivalent 00:00:00 [facility] DTaP, Unspecified 1998-01-03 Completed [facility] Formulation 00:00:00 [facility] Hep B, Adol or Pedi 1998-01-03 Completed [facility] rs[facility] of Dosage 00:00:00 [facility] Poliovirus, Live, 1998-01-03 Completed [facility] Oral, Trivalent 00:00:00 [facility] DTaP, Unspecified 1998-01-03 Completed [facility] Formulation 00:00:00 [facility] Hep B, Adol or Pedi 1998-01-03 Completed [facility] rs[facility] of Dosage 00:00:00 [facility] Poliovirus, Live, 1998-01-03 Completed [facility] Oral, Trivalent 00:00:00 [facility] DTaP, Unspecified 1998-01-03 Completed [facility] Formulation 00:00:00 [facility] Hep B, Adol or Pedi 1998-01-03 Completed [facility] rs[facility] of Dosage 00:00:00 [facility] Poliovirus, Live, 1998-01-03 Completed [facility] Oral, Trivalent 00:00:00 [facility] DTaP, Unspecified 1998-01-03 Completed [facility] of Formulation 00:00:00 [facility] Hep B, Adol or Pedi 1998-01-03 Completed [facility] rs[facility] of Dosage 00:00:00 [facility] Poliovirus, Live, 1998-01-03 Completed [facility] Oral, Trivalent 00:00:00 [facility] DTaP, Unspecified 1998-01-03 Completed [facility] Formulation 00:00:00 [facility] Hep B, Adol or Pedi 1998-01-03 Completed [facility] rs[facility] of Dosage 00:00:00 [facility] Poliovirus, Live, 1998-01-03 Completed [facility] Oral, Trivalent 00:00:00 [facility] DTaP, Unspecified 1998-01-03 Completed [facility] Formulation 00:00:00 [facility] Hep B, Adol or Pedi 1998-01-03 Completed [facility] rs[facility] of Dosage 00:00:00 [facility] Poliovirus, Live, 1998-01-03 Completed [facility] Oral, Trivalent 00:00:00 [facility] DTaP, Unspecified 1998-01-03 Completed [facility] Formulation 00:00:00 [facility] Hep B, Adol or Pedi 1998-01-03 Completed [facility] rs[facility] of Dosage 00:00:00 [facility] Poliovirus, Live, 1998-01-03 Completed [facility] Oral, Trivalent 00:00:00 [facility] DTaP, Unspecified 1998-01-03 Completed [facility] Formulation 00:00:00 [facility] Hep B, Adol or Pedi 1998-01-03 Completed [facility] rs[facility] of Dosage 00:00:00 [facility] Poliovirus, Live, 1998-01-03 Completed [facility] Oral, Trivalent 00:00:00 [facility] DTaP, Unspecified 1998-01-03 Completed [facility] Formulation 00:00:00 [facility] Hep B, Adol or Pedi 1998-01-03 Completed [facility] of Dosage 00:00:00 [facility] Poliovirus, Live, 1998-01-03 Completed [facility] Oral, Trivalent 00:00:00 [facility] DTaP, Unspecified 1998-01-03 Completed [facility] Formulation 00:00:00 [facility] Hep B, Adol or Pedi 1998-01-03 Completed [facility] of Dosage 00:00:00 [facility] Poliovirus, Live, 1998-01-03 Completed [facility] Oral, Trivalent 00:00:00 [facility] DTaP, Unspecified 1998-01-03 Completed [facility] Formulation 00:00:00 [facility] Hep B, Adol or Pedi 1998-01-03 Completed [facility] of Dosage 00:00:00 [facility] Poliovirus, Live, 1998-01-03 Completed [facility] Oral, Trivalent 00:00:00 [facility] DTaP, Unspecified 1998-01-03 Completed [facility] Formulation 00:00:00 [facility] Hep B, Adol or Pedi 1998-01-03 Completed [facility] rs[facility] of Dosage 00:00:00 [facility] Poliovirus, Live, 1998-01-03 Completed [facility] Oral, Trivalent 00:00:00 [facility] DTaP, Unspecified 1998-01-03 Completed [facility] Formulation 00:00:00 [facility] Hep B, Adol or Pedi 1998-01-03 Completed [facility] rs[facility] of Dosage 00:00:00 [facility] Poliovirus, Live, 1998-01-03 Completed [facility] Oral, Trivalent 00:00:00 [facility] DTaP, Unspecified 1998-01-03 Completed [facility] Formulation 00:00:00 [facility] Hep B, Adol or Pedi 1998-01-03 Completed [facility] rs[facility] of Dosage 00:00:00 [facility] Poliovirus, Live, 1998-01-03 Completed [facility] Oral, Trivalent 00:00:00 [facility] DTaP, Unspecified 1998-01-03 Completed [facility] Formulation 00:00:00 [facility] Hep B, Adol or Pedi 1998-01-03 Completed [facility] rs[facility] of Dosage 00:00:00 [facility] Poliovirus, Live, 1998-01-03 Completed [facility] Oral, Trivalent 00:00:00 [facility] DTaP, Unspecified 1998-01-03 Completed [facility] Formulation 00:00:00 [facility] Hep B, Adol or Pedi 1998-01-03 Completed [facility] rs[facility] of Dosage 00:00:00 [facility] Poliovirus, Live, 1998-01-03 Completed [facility] Oral, Trivalent 00:00:00 [facility] DTaP, Unspecified 1998-01-03 Completed [facility] Formulation 00:00:00 [facility] Hep B, Adol or Pedi 1998-01-03 Completed [facility] of Dosage 00:00:00 [facility] Poliovirus, Live, 1998-01-03 Completed [facility] Oral, Trivalent 00:00:00 [facility] DTaP, Unspecified 1998-01-03 Completed [facility] Formulation 00:00:00 [facility] Hep B, Adol or Pedi 1998-01-03 Completed [facility] of Dosage 00:00:00 [facility] Poliovirus, Live, 1998-01-03 Completed [facility] Oral, Trivalent 00:00:00 [facility] DTaP, Unspecified 1998-01-03 Completed [facility] Formulation 00:00:00 [facility] Hep B, Adol or Pedi 1998-01-03 Completed [facility] rs[facility] of Dosage 00:00:00 [facility] Poliovirus, Live, 1998-01-03 Completed [facility] Oral, Trivalent 00:00:00 [facility] DTaP, Unspecified 1998-01-03 Completed [facility] Formulation 00:00:00 [facility] Hep B, Adol or Pedi 1998-01-03 Completed [facility] of Dosage 00:00:00 [facility] Poliovirus, Live, 1998-01-03 Completed [facility] Oral, Trivalent 00:00:00 [facility] DTaP, Unspecified 1998-01-03 Completed [facility] Formulation 00:00:00 [facility] Hep B, Adol or Pedi 1998-01-03 Completed [facility] of Dosage 00:00:00 [facility] Poliovirus, Live, 1998-01-03 Completed [facility] Oral, Trivalent 00:00:00 [facility] DTaP, Unspecified 1998-01-03 Completed [facility] Formulation 00:00:00 [facility] Hep B, Adol or Pedi 1998-01-03 Completed [facility] rs[facility] of Dosage 00:00:00 [facility] Poliovirus, Live, 1998-01-03 Completed [facility] Oral, Trivalent 00:00:00 [facility] DTaP, Unspecified 1998-01-03 Completed [facility] Formulation 00:00:00 [facility] Hep B, Adol or Pedi 1998-01-03 Completed [facility] rsity of Dosage 00:00:00 [facility] Poliovirus, Live, 1998-01-03 Completed [facility] Oral, Trivalent 00:00:00 [facility] DTaP, Unspecified 1998-01-03 Completed [facility] Formulation 00:00:00 [facility] Hep B, Adol or Pedi 1998-01-03 Completed [facility] of Dosage 00:00:00 [facility] Poliovirus, Live, 1998-01-03 Completed [facility] Oral, Trivalent 00:00:00 [facility] DTaP, Unspecified 1998-01-03 Completed [facility] Formulation 00:00:00 [facility] Hep B, Adol or Pedi 1998-01-03 Completed [facility] rs[facility] of Dosage 00:00:00 [facility] Poliovirus, Live, 1998-01-03 Completed [facility] Oral, Trivalent 00:00:00 [facility] DTaP, Unspecified 1998-01-03 Completed [facility] Formulation 00:00:00 [facility] Hep B, Adol or Pedi 1998-01-03 Completed [facility] rs[facility] of Dosage 00:00:00 [facility] Poliovirus, Live, 1998-01-03 Completed [facility] Oral, Trivalent 00:00:00 [facility] DTaP, Unspecified 1998-01-03 Completed [facility] Formulation 00:00:00 [facility] Hep B, Adol or Pedi 1998-01-03 Completed [facility] rs[facility] of Dosage 00:00:00 [facility] Poliovirus, Live, 1998-01-03 Completed [facility] Oral, Trivalent 00:00:00 [facility] DTaP, Unspecified 1998-01-03 Completed [facility] Formulation 00:00:00 [facility] Hep B, Adol or Pedi 1998-01-03 Completed [facility] rs[facility] of Dosage 00:00:00 [facility] Poliovirus, Live, 1998-01-03 Completed [facility] Oral, Trivalent 00:00:00 [facility] Hep B, Unspecified 1997-03-28 Completed [facility]iver [facility] of Formulation 00:00:00 [facility] Hep B, Adol or Pedi 1997-03-28 Completed [facility] rs[facility] of Dosage 00:00:00 [facility] MMR 1997-03-28 Completed [facility] 00:00:00 [facility] Hep B, Unspecified 1997-03-28 Completed Univer [facility]ity of Formulation 00:00:00 [facility] Hep B, Adol or Pedi 1997-03-28 Completed [facility] rs[facility] of Dosage 00:00:00 [facility] MMR 1997-03-28 Completed [facility] 00:00:00 [facility] Hep B, Unspecified 1997-03-28 Completed [facility] of Formulation 00:00:00 [facility] Hep B, Adol or Pedi 1997-03-28 Completed [facility] rs[facility] of Dosage 00:00:00 [facility] MMR 1997-03-28 Completed [facility] 00:00:00 [facility] Hep B, Unspecified 1997-03-28 Completed [facility] of Formulation 00:00:00 [facility] Hep B, Adol or Pedi 1997-03-28 Completed [facility] rs[facility] of Dosage 00:00:00 [facility] MMR 1997-03-28 Completed [facility] 00:00:00 [facility] Hep B, Unspecified 1997-03-28 Completed [facility]ity of Formulation 00:00:00 [facility] Hep B, Adol or Pedi 1997-03-28 Completed [facility] of Dosage 00:00:00 [facility] MMR 1997-03-28 Completed [facility] 00:00:00 [facility] Hep B, Unspecified 1997-03-28 Completed [facility] of Formulation 00:00:00 [facility] Hep B, Adol or Pedi 1997-03-28 Completed [facility] of Dosage 00:00:00 [facility] MMR 1997-03-28 Completed [facility] 00:00:00 [facility] Hep B, Unspecified 1997-03-28 Completed [facility] of Formulation 00:00:00 [facility] Hep B, Adol or Pedi 1997-03-28 Completed [facility] of Dosage 00:00:00 [facility] MMR 1997-03-28 Completed [facility] 00:00:00 [facility] Hep B, Unspecified 1997-03-28 Completed [facility] of Formulation 00:00:00 [facility] Hep B, Adol or Pedi 1997-03-28 Completed [facility] of Dosage 00:00:00 [facility] MMR 1997-03-28 Completed [facility] 00:00:00 [facility] Hep B, Unspecified 1997-03-28 Completed [facility] of Formulation 00:00:00 [facility] Hep B, Adol or Pedi 1997-03-28 Completed [facility] of Dosage 00:00:00 [facility] MMR 1997-03-28 Completed [facility] 00:00:00 [facility] Hep B, Unspecified 1997-03-28 Completed [facility] of Formulation 00:00:00 [facility] Hep B, Adol or Pedi 1997-03-28 Completed [facility] rs[facility] of Dosage 00:00:00 [facility] MMR 1997-03-28 Completed [facility] 00:00:00 [facility] Hep B, Unspecified 1997-03-28 Completed [facility] of Formulation 00:00:00 [facility] Hep B, Adol or Pedi 1997-03-28 Completed [facility] rs[facility] of Dosage 00:00:00 [facility] MMR 1997-03-28 Completed [facility] 00:00:00 [facility] Hep B, Unspecified 1997-03-28 Completed [facility] of Formulation 00:00:00 [facility] Hep B, Adol or Pedi 1997-03-28 Completed [facility] rs[facility] of Dosage 00:00:00 [facility] MMR 1997-03-28 Completed [facility] 00:00:00 [facility] Hep B, Unspecified 1997-03-28 Completed [facility] of Formulation 00:00:00 [facility] Hep B, Adol or Pedi 1997-03-28 Completed [facility] of Dosage 00:00:00 [facility] MMR 1997-03-28 Completed [facility] 00:00:00 [facility] Hep B, Unspecified 1997-03-28 Completed [...] 1997-03-28 Completed [facility] of Dosage 00:00:00 [facility] MMR 1997-03-28 Completed [facility] 00:00:00 [facility] Hep B, Unspecified 1997-03-28 Completed [facility] of Formulation 00:00:00 [facility] Hep B, Adol or Pedi 1997-03-28 Completed [facility] of Dosage 00:00:00 [facility] MMR 1997-03-28 Completed [facility] 00:00:00 [facility] Hep B, Unspecified 1997-03-28 Completed [facility] of Formulation 00:00:00 [facility] Hep B, Adol or Pedi 1997-03-28 Completed [facility] of Dosage 00:00:00 [facility] MMR 1997-03-28 Completed [facility] 00:00:00 [facility] Hep B, Unspecified 1997-03-28 Completed [facility] of Formulation 00:00:00 [facility] Hep B, Adol or Pedi 1997-03-28 Completed [facility] of Dosage 00:00:00 [facility] MMR 1997-03-28 Completed [facility] 00:00:00 [facility] Hep B, Unspecified 1997-03-28 Completed [facility] of Formulation 00:00:00 [facility] Hep B, Adol or Pedi 1997-03-28 Completed [facility] of Dosage 00:00:00 [facility] MMR 1997-03-28 Completed [facility] 00:00:00 [facility] Hep B, Unspecified 1997-03-28 Completed [facility] of Formulation 00:00:00 [facility] Hep B, Adol or Pedi 1997-03-28 Completed [facility] of Dosage 00:00:00 [facility] MMR 1997-03-28 Completed [facility] 00:00:00 [facility] Hep B, Unspecified 1997-03-28 Completed [facility] of Formulation 00:00:00 [facility] Hep B, Adol or Pedi 1997-03-28 Completed [facility] of Dosage 00:00:00 [facility] MMR 1997-03-28 Completed [facility] 00:00:00 [facility] Hep B, Unspecified 1997-03-28 Completed [facility] of Formulation 00:00:00 [facility] Hep B, Adol or Pedi 1997-03-28 Completed [facility] of Dosage 00:00:00 [facility] MMR 1997-03-28 Completed [facility] 00:00:00 [facility] Hep B, Unspecified 1997-03-28 Completed [facility] of Formulation 00:00:00 [facility] Hep B, Adol or Pedi 1997-03-28 Completed [facility] of Dosage 00:00:00 [facility] MMR 1997-03-28 Completed [facility] 00:00:00 [facility] Hep B, Unspecified 1997-03-28 Completed [facility] of Formulation 00:00:00 [facility] Hep B, Adol or Pedi 1997-03-28 Completed [facility] of Dosage 00:00:00 [facility] MMR 1997-03-28 Completed [facility] 00:00:00 [facility] Hep B, Unspecified 1997-03-28 Completed [facility] of Formulation 00:00:00 [facility] Hep B, Adol or Pedi 1997-03-28 Completed [facility] of Dosage 00:00:00 [facility] MMR 1997-03-28 Completed [facility] 00:00:00 [facility] Hep B, Unspecified 1997-03-28 Completed [facility] of Formulation 00:00:00 [facility] Hep B, Adol or Pedi 1997-03-28 Completed [facility] of Dosage 00:00:00 [facility] MMR 1997-03-28 Completed [facility] 00:00:00 [facility] Hep B, Unspecified 1997-03-28 Completed [facility] of Formulation 00:00:00 [facility] Hep B, Adol or Pedi 1997-03-28 Completed [facility] of Dosage 00:00:00 [facility] MMR 1997-03-28 Completed [facility] 00:00:00 [facility] Hep B, Unspecified 1997-03-28 Completed [facility] of Formulation 00:00:00 [facility] Hep B, Adol or Pedi 1997-03-28 Completed [facility] of Dosage 00:00:00 [facility] MMR 1997-03-28 Completed [facility] 00:00:00 [facility] Hep B, Unspecified 1997-03-28 Completed [facility] Formulation 00:00:00 [facility] Hep B, Adol or Pedi 1997-03-28 Completed [facility] of Dosage 00:00:00 [facility] MMR 1997-03-28 Completed [facility] 00:00:00 [facility] 1994-05-19 Completed [facility] 00:00:00 [facility] Hib-HbOC 1994-05-19 Completed [facility] 00:00:00 [facility] 1994-05-19 Completed [facility] 00:00:00 [facility] Poliovirus, Live, 1994-05-19 Completed [facility] Oral, Trivalent 00:00:00 [facility] 1994-05-19 Completed [facility] 00:00:00 [facility] Hib-HbOC 1994-05-19 Completed [facility] 00:00:00 [facility] 1994-05-19 Completed [facility] 00:00:00 [facility] Poliovirus, Live, 1994-05-19 Completed [facility] Oral, Trivalent 00:00:00 [facility] 1994-05-19 Completed [facility] 00:00:00 [facility] Hib-HbOC 1994-05-19 Completed [facility] 00:00:00 [facility] 1994-05-19 Completed [facility] 00:00:00 [facility] Poliovirus, Live, 1994-05-19 Completed [facility] Oral, Trivalent 00:00:00 [facility] 1994-05-19 Completed [facility] 00:00:00 [facility] Hib-HbOC 1994-05-19 Completed [facility] 00:00:00 [facility] 1994-05-19 Completed [facility] 00:00:00 [facility] Poliovirus, Live, 1994-05-19 Completed [facility] Oral, Trivalent 00:00:00 [facility] 1994-05-19 Completed [facility] 00:00:00 [facility] Hib-HbOC 1994-05-19 Completed [facility] 00:00:00 [facility] 1994-05-19 Completed [facility] 00:00:00 [facility] Poliovirus, Live, 1994-05-19 Completed [facility] Oral, Trivalent 00:00:00 [facility] 1994-05-19 Completed [facility] 00:00:00 [facility] Hib-HbOC 1994-05-19 Completed [facility] 00:00:00 [facility] MMR 1994-05-19 Completed [facility] 00:00:00 [facility] Poliovirus, Live, 1994-05-19 Completed [facility] Oral, Trivalent 00:00:00 [facility] 1994-05-19 Completed [facility] of 00:00:00 [facility] Hib-HbOC 1994-05-19 Completed [facility] of 00:00:00 [facility] MMR 1994-05-19 Completed [facility] of 00:00:00 [facility] Poliovirus, Live, 1994-05-19 Completed [facility] Oral, Trivalent 00:00:00 [facility] 1994-05-19 Completed [facility] of 00:00:00 [facility] Hib-HbOC 1994-05-19 Completed [facility] of 00:00:00 [facility] 1994-05-19 Completed [facility] of 00:00:00 [facility] Poliovirus, Live, 1994-05-19 Completed [facility] of Oral, Trivalent 00:00:00 [facility] 1994-05-19 Completed [facility] of 00:00:00 [facility] Hib-HbOC 1994-05-19 Completed [facility] of 00:00:00 [facility] 1994-05-19 Completed [facility] of 00:00:00 [facility] Poliovirus, Live, 1994-05-19 Completed [facility] Oral, Trivalent 00:00:00 [facility] 1994-05-19 Completed [facility] of 00:00:00 [facility] Hib-HbOC 1994-05-19 Completed [facility] of 00:00:00 [facility] MMR 1994-05-19 Completed [facility] of 00:00:00 [facility] Poliovirus, Live, 1994-05-19 Completed [facility] Oral, Trivalent 00:00:00 [facility] 1994-05-19 Completed [facility] of 00:00:00 [facility] Hib-HbOC 1994-05-19 Completed [facility] 00:00:00 [facility] 1994-05-19 Completed [facility] of 00:00:00 [facility] Poliovirus, Live, 1994-05-19 Completed [facility] Oral, Trivalent 00:00:00 [facility] 1994-05-19 Completed [facility] of 00:00:00 [facility] Hib-HbOC 1994-05-19 Completed [facility] of 00:00:00 [facility] MMR 1994-05-19 Completed [facility] of 00:00:00 [facility] Poliovirus, Live, 1994-05-19 Completed [facility] Oral, Trivalent 00:00:00 [facility] 1994-05-19 Completed [facility] of 00:00:00 [facility] Hib-HbOC 1994-05-19 Completed [facility] of 00:00:00 [facility] MMR 1994-05-19 Completed [facility] of 00:00:00 [facility] Poliovirus, Live, 1994-05-19 Completed [facility] Oral, Trivalent 00:00:00 [facility] 1994-05-19 Completed [facility] of 00:00:00 [facility] Hib-HbOC 1994-05-19 Completed [facility] of 00:00:00 [facility] MMR 1994-05-19 Completed [facility] of 00:00:00 [facility] Poliovirus, Live, 1994-05-19 Completed [facility] Oral, Trivalent 00:00:00 [facility] 1994-05-19 Completed [facility] of 00:00:00 [facility] Hib-HbOC 1994-05-19 Completed [facility] of 00:00:00 [facility] MMR 1994-05-19 Completed [facility] of 00:00:00 [facility] Poliovirus, Live, 1994-05-19 Completed [facility] Oral, Trivalent 00:00:00 [facility] 1994-05-19 Completed [facility] of 00:00:00 [facility] Hib-HbOC 1994-05-19 Completed [facility] of 00:00:00 [facility] MMR 1994-05-19 Completed [facility] of 00:00:00 [facility] Poliovirus, Live, 1994-05-19 Completed [facility] Oral, Trivalent 00:00:00 [facility] 1994-05-19 Completed [facility] of 00:00:00 [facility] Hib-HbOC 1994-05-19 Completed [facility] of 00:00:00 [facility] MMR 1994-05-19 Completed [facility] of 00:00:00 [facility] Poliovirus, Live, 1994-05-19 Completed [facility] Oral, Trivalent 00:00:00 [facility] 1994-05-19 Completed [facility] of 00:00:00 [facility] Hib-HbOC 1994-05-19 Completed [facility] of 00:00:00 [facility] MMR 1994-05-19 Completed [facility] of 00:00:00 [facility] Poliovirus, Live, 1994-05-19 Completed [facility] Oral, Trivalent 00:00:00 [facility] 1994-05-19 Completed [facility] of 00:00:00 [facility] Hib-HbOC 1994-05-19 Completed [facility] of 00:00:00 [facility] MMR 1994-05-19 Completed [facility] of 00:00:00 [facility] Poliovirus, Live, 1994-05-19 Completed [facility] Oral, Trivalent 00:00:00 [facility] 1994-05-19 Completed [facility] of 00:00:00 [facility] Hib-HbOC 1994-05-19 Completed [facility] of 00:00:00 [facility] MMR 1994-05-19 Completed [facility] of 00:00:00 [facility] Poliovirus, Live, 1994-05-19 Completed [facility] Oral, Trivalent 00:00:00 [facility] 1994-05-19 Completed [facility] of 00:00:00 [facility] Hib-HbOC 1994-05-19 Completed [facility] of 00:00:00 [facility] MMR 1994-05-19 Completed [facility] of 00:00:00 [facility] Poliovirus, Live, 1994-05-19 Completed [facility] Oral, Trivalent 00:00:00 [facility] 1994-05-19 Completed [facility] of 00:00:00 [facility] Hib-HbOC 1994-05-19 Completed [facility] of 00:00:00 [facility] MMR 1994-05-19 Completed [facility] of 00:00:00 [facility] Poliovirus, Live, 1994-05-19 Completed [facility] Oral, Trivalent 00:00:00 [facility] 1994-05-19 Completed [facility] of 00:00:00 [facility] Hib-HbOC 1994-05-19 Completed [facility] of 00:00:00 [facility] MMR 1994-05-19 Completed [facility] of 00:00:00 [facility] Poliovirus, Live, 1994-05-19 Completed [facility] Oral, Trivalent 00:00:00 [facility] 1994-05-19 Completed [facility] of 00:00:00 [facility] Hib-HbOC 1994-05-19 Completed [facility] of 00:00:00 [facility] MMR 1994-05-19 Completed [facility] of 00:00:00 [facility] Poliovirus, Live, 1994-05-19 Completed [facility] Oral, Trivalent 00:00:00 [facility] DT 1994-05-19 Completed [facility] of 00:00:00 [facility] Hib-HbOC 1994-05-19 Completed [facility] of 00:00:00 [facility] MMR 1994-05-19 Completed [facility] of 00:00:00 [facility] Poliovirus, Live, 1994-05-19 Completed [facility] Oral, Trivalent 00:00:00 [facility] 1994-05-19 Completed [facility] of 00:00:00 [facility] Hib-HbOC 1994-05-19 Completed [facility] of 00:00:00 [facility] MMR 1994-05-19 Completed [facility] of 00:00:00 [facility] Poliovirus, Live, 1994-05-19 Completed [facility] Oral, Trivalent 00:00:00 [facility] 1994-05-19 Completed [facility] of 00:00:00 [facility] Hib-HbOC 1994-05-19 Completed [facility] of 00:00:00 [facility] MMR 1994-05-19 Completed [facility] of 00:00:00 [facility] Poliovirus, Live, 1994-05-19 Completed [facility] Oral, Trivalent 00:00:00 [facility] DT 1994-05-19 Completed [facility] of 00:00:00 [facility] Hib-HbOC 1994-05-19 Completed [facility] of 00:00:00 [facility] MMR 1994-05-19 Completed [facility] of 00:00:00 [facility] Poliovirus, Live, 1994-05-19 Completed [facility] Oral, Trivalent 00:00:00 [facility] DTP 1994-05-19 Completed [facility] of 00:00:00 [facility] Hib-HbOC 1994-05-19 Completed [facility] of 00:00:00 [facility] MMR 1994-05-19 Completed [facility] of 00:00:00 [facility] Poliovirus, Live, 1994-05-19 Completed [facility] Oral, Trivalent 00:00:00 [facility] 1994-05-09 Completed University of Influenza B 00:00:00 [facility] 1994-05-09 Completed University of Influenza B 00:00:00 [facility] 1994-05-09 Completed [facility] of Influenza B 00:00:00 [facility] 1994-05-09 Completed [facility] of Influenza B 00:00:00 [facility] 1994-05-09 Completed [facility] of Influenza B 00:00:00 [facility] 1994-05-09 Completed [facility] of Influenza B 00:00:00 [facility] 1994-05-09 Completed [facility] of Influenza B 00:00:00 [facility] 1994-05-09 Completed [facility] of Influenza B 00:00:00 [facility] 1994-05-09 Completed [facility] of Influenza B 00:00:00 [facility] 1994-05-09 Completed [facility] of Influenza B 00:00:00 [facility] 1994-05-09 Completed [facility] of Influenza B 00:00:00 [facility] 1994-05-09 Completed [facility] of Influenza B 00:00:00 [facility] 1994-05-09 Completed [facility] of Influenza B 00:00:00 [facility] 1994-05-09 Completed [facility] of Influenza B 00:00:00 [facility] 1994-05-09 Completed [facility] of Influenza B 00:00:00 [facility] 1994-05-09 Completed [facility] of Influenza B 00:00:00 [facility] 1994-05-09 Completed [facility] of Influenza B 00:00:00 [facility] 1994-05-09 Completed [facility] of Influenza B 00:00:00 [facility] 1994-05-09 Completed [facility] of Influenza B 00:00:00 [facility] 1994-05-09 Completed [facility] of Influenza B 00:00:00 [facility] 1994-05-09 Completed [facility] of Influenza B 00:00:00 [facility] 1994-05-09 Completed [facility] of Influenza B 00:00:00 [facility] 1994-05-09 Completed [facility] of Influenza B 00:00:00 [facility] 1994-05-09 Completed [facility] Influ[facility] B 00:[facility] [facility] Influ[facility] B [facility]:00[facility] Influenza B 00:00[facility] Influenza B 00:00[facility] Com[facility] Influenza B 00:00:00 [facility] Hep B, Unspecified 1993-04-29 Completed Univer sity of Formulation 00:00:00 [facility] Hep B, Adol or Pedi 1993-04-29 Completed Unive rsity of Dosage 00:00:00 [facility] Hep B, Unspecified 1993-04-29 Completed Univer sity of Formulation 00:00:00 [facility] Hep B, Adol or Pedi 1993-04-29 Completed Unive rsity of Dosage 00:00:00 [facility] Hep B, Unspecified 1993-04-29 Completed Univer sity of Formulation 00:00:00 [facility] Hep B, Adol or Pedi 1993-04-29 Completed Unive rsity of Dosage 00:00:00 [facility] Hep B, Unspecified 1993-04-29 Completed Univer sity of Formulation 00:00:00 [facility] Hep B, Adol or Pedi 1993-04-29 Completed Unive rsity of Dosage 00:00:00 [facility] Hep B, Unspecified 1993-04-29 Completed [facility]iver sity of Formulation 00:00:00 [facility] Hep B, Adol or Pedi 1993-04-29 Completed Unive rsity of Dosage 00:00:00 [facility] Hep B, Unspecified 1993-04-29 Completed [facility]ity of Formulation 00:00:00 [facility] Hep B, Adol or Pedi 1993-04-29 Completed Unive rsity of Dosage 00:00:00 [facility] Hep B, Unspecified 1993-04-29 Completed [facility]iver sity of Formulation 00:00:00 [facility] Hep B, Adol or Pedi 1993-04-29 Completed Unive rsity of Dosage 00:00:00 [facility] Hep B, Unspecified 1993-04-29 Completed [...] 1993-04-29 Completed [facility] of Formulation 00:00:00 [facility] Hep B, Adol or Pedi 1993-04-29 Completed Unive rsity of Dosage 00:00:00 [facility] Hep B, Unspecified 1993-04-29 Completed Univer sity of Formulation 00:00:00 [facility] Hep B, Adol or Pedi 1993-04-29 Completed Unive rsity of Dosage 00:00:00 [facility] Hep B, Unspecified 1993-04-29 Completed Univer sity of Formulation 00:00:00 [facility] Hep B, Adol or Pedi 1993-04-29 Completed Unive rsity of Dosage 00:00:00 [facility] DTP 1992 Completed [facility] 00:00:00 [facility] Heamophilus 1992 Completed [facility] of Influenza B 00:00:00 [facility] Hib-HbOC 1992 Completed [facility] of 00:00:00 [facility] DTP 1992 Completed [facility] of 00:00:00 [facility] Heamophilus 1992 Completed [facility] of Influenza B 00:00:00 [facility] Hib-HbOC 1992 Completed [facility] of 00:00:00 [facility] DTP 1992 Completed [facility] 00:00:00 [facility] Heamophilus 1992 Completed [facility] of Influenza B 00:00:00 [facility] Hib-HbOC 1992 Completed [facility] of 00:00:00 [facility] DTP 1992 Completed [facility] of 00:00:00 [facility] Heamophilus 1992 Completed [facility] of Influenza B 00:00:00 [facility] Hib-HbOC 1992 Completed [facility] of 00:00:00 [facility] DTP 1992 Completed [facility] of 00:00:00 [facility] Heamophilus 1992 Completed [facility] of Influenza B 00:00:00 [facility] Hib-HbOC 1992 Completed [facility] of 00:00:00 [facility] DTP 1992 Completed [facility] of 00:00:00 [facility] Heamophilus 1992 Completed [facility] of Influenza B 00:00:00 [facility] Hib-HbOC 1992 Completed [facility] of 00:00:00 [facility] DTP 1992 Completed [facility] 00:00:00 [facility] Heamophilus 1992 Completed [facility] of Influenza B 00:00:00 [facility] Hib-HbOC 1992 Completed [facility] of 00:00:00 [facility] DTP 1992 Completed [facility] of 00:00:00 [facility] Heamophilus 1992 Completed [facility] of Influenza B 00:00:00 [facility] Hib-HbOC 1992 Completed [facility] of 00:00:00 [facility] DTP 1992 Completed [facility] of 00:00:00 [facility] Heamophilus 1992 Completed [facility] of Influenza B 00:00:00 [facility] Hib-HbOC 1992 Completed [facility] of 00:00:00 [facility] DTP 1992 Completed [facility] of 00:00:00 [facility] Heamophilus 1992 Completed [facility] of Influenza B 00:00:00 [facility] Hib-HbOC 1992 Completed [facility] of 00:00:00 [facility] DTP 1992 Completed [facility] of 00:00:00 [facility] Heamophilus 1992 Completed [facility] of Influenza B 00:00:00 [facility] Hib-HbOC 1992 Completed [facility] of 00:00:00 [facility] DTP 1992 Completed [facility] of 00:00:00 [facility] Heamophilus 1992 Completed [facility] of Influenza B 00:00:00 [facility] Hib-HbOC 1992 Completed [facility] of 00:00:00 [facility] DTP 1992 Completed [facility] of 00:00:00 [facility] Heamophilus 1992 Completed [facility] of Influenza B 00:00:00 [facility] Hib-HbOC 1992 Completed [facility] of 00:00:00 [facility] DTP 1992 Completed [facility] of 00:00:00 [facility] Heamophilus 1992 Completed [facility] of Influenza B 00:00:00 [facility] Hib-HbOC 1992 Completed [facility] of 00:00:00 [facility] DTP 1992 Completed [facility] of 00:00:00 [facility] Heamophilus 1992 Completed [facility] of Influenza B 00:00:00 [facility] Hib-HbOC 1992 Completed [facility] of 00:00:00 [facility] DTP 1992 Completed [facility] of 00:00:00 [facility] Heamophilus 1992 Completed [facility] of Influenza B 00:00:00 [facility] Hib-HbOC 1992 Completed [facility] of 00:00:00 [facility] DTP 1992 Completed [facility] of 00:00:00 [facility] Heamophilus 1992 Completed [facility] of Influenza B 00:00:00 [facility] Hib-HbOC 1992 Completed [facility] of 00:00:00 [facility] DTP 1992 Completed [facility] of 00:00:00 [facility] Heamophilus 1992 Completed [facility] of Influenza B 00:00:00 [facility] Hib-HbOC 1992 Completed [facility] of 00:00:00 [facility] DTP 1992 Completed [facility] of 00:00:00 [facility] Heamophilus 1992 Completed [facility] of Influenza B 00:00:00 [facility] Hib-HbOC 1992 Completed [facility] of 00:00:00 [facility] DTP 1992 Completed [facility] of 00:00:00 [facility] Heamophilus 1992 Completed [facility] of Influenza B 00:00:00 [facility] Hib-HbOC 1992 Completed [facility] of 00:00:00 [facility] DTP 1992 Completed [facility] of 00:00:00 [facility] Heamophilus 1992 Completed [facility] of Influenza B 00:00:00 [facility] Hib-HbOC 1992 Completed [facility] of 00:00:00 [facility] DTP 1992 Completed [facility] of 00:00:00 [facility] Heamophilus 1992 Completed [facility] of Influenza B 00:00:00 [facility] Hib-HbOC 1992 Completed [facility] of 00:00:00 [facility] DTP 1992 Completed [facility] of 00:00:00 [facility] Heamophilus 1992 Completed [facility] of Influenza B 00:00:00 [facility] Hib-HbOC 1992 Completed [facility] of 00:00:00 [facility] DTP 1992 Completed [facility] of 00:00:00 [facility] Heamophilus 1992 Completed [facility] of Influenza B 00:00:00 [facility] Hib-HbOC 1992 Completed [facility] of 00:00:00 [facility] DTP 1992 Completed [facility] of 00:00:00 [facility] Heamophilus 1992 Completed [facility] of Influenza B 00:00:00 [facility] Hib-HbOC 1992 Completed [facility] of 00:00:00 [facility] DTP 1992 Completed [facility] 00:00:00 [facility] Heamophilus 1992 Completed [facility] of Influenza B 00:00:00 [facility] Hib-HbOC 1992 Completed [facility] of 00:00:00 [facility] DTP 1992 Completed [facility] of 00:00:00 [facility] Heamophilus 1992 Completed [facility] of Influenza B 00:00:00 [facility] Hib-HbOC 1992 Completed [facility] of 00:00:00 [facility] DTP 1992 Completed [facility] 00:00:00 [facility] Heamophilus 1992 Completed [facility] of Influenza B 00:00:00 [facility] Hib-HbOC 1992 Completed [facility] of 00:00:00 [facility] DTP 1992 Completed [facility] of 00:00:00 [facility] Heamophilus 1992 Completed [facility] of Influenza B 00:00:00 [facility] Hib-HbOC 1992 Completed [facility] of 00:00:00 [facility] DTP 1992 Completed [facility] of 00:00:00 [facility] Heamophilus 1992 Completed [facility] of Influenza B 00:00:00 [facility] Hib-HbOC 1992 Completed [facility] of 00:00:00 [facility] Poliovirus, Live, 1992 Completed [facility]y of Oral, Trivalent 00:00:00 [facility] 1992 Completed [facility] of 00:00:00 [facility] Heamophilus 1992 Completed [facility] of Influenza B 00:00:00 [facility] Hib-HbOC 1992 Completed [facility] of 00:00:00 [facility] Poliovirus, Live, 1992 Completed [facility] of Oral, Trivalent 00:00:00 [facility] DT 1992 Completed [facility] of 00:00:00 [facility] Heamophilus 1992 Completed [facility] of Influenza B 00:00:00 [facility] Hib-HbOC 1992 Completed [facility] 00:00:00 [facility] Poliovirus, Live, 1992 Completed [facility] of Oral, Trivalent 00:00:00 [facility] DT 1992 Completed [facility] of 00:00:00 [facility] Heamophilus 1992 Completed [facility] of Influenza B 00:00:00 [facility] Hib-HbOC 1992 Completed [facility] of 00:00:00 [facility] Poliovirus, Live, 1992 Completed [facility] of Oral, Trivalent 00:00:00 [facility] 1992 Completed [facility] of 00:00:00 [facility] Heamophilus 1992 Completed [facility] of Influenza B 00:00:00 [facility] Hib-HbOC 1992 Completed [facility] of 00:00:00 [facility] Poliovirus, Live, 1992 Completed [facility] of Oral, Trivalent 00:00:00 [facility] DT 1992 Completed [facility] of 00:00:00 [facility] Heamophilus 1992 Completed [facility] of Influenza B 00:00:00 [facility] Hib-HbOC 1992 Completed [facility] of 00:00:00 [facility] Poliovirus, Live, 1992 Completed [facility]y of Oral, Trivalent 00:00:00 [facility] DT 1992 Completed [facility] of 00:00:00 [facility] Heamophilus 1992 Completed [facility] of Influenza B 00:00:00 [facility] Hib-HbOC 1992 Completed [facility] of 00:00:00 [facility] Poliovirus, Live, 1992 Completed [facility]y of Oral, Trivalent 00:00:00 [facility] DT 1992 Completed [facility] 00:00:00 [facility] Heamophilus 1992 Completed [facility] of Influenza B 00:00:00 [facility] Hib-HbOC 1992 Completed [facility] of 00:00:00 [facility] Poliovirus, Live, 1992 Completed [facility]y of Oral, Trivalent 00:00:00 [facility] 1992 Completed [facility] 00:00:00 [facility] Heamophilus 1992 Completed [facility] of Influenza B 00:00:00 [facility] Hib-HbOC 1992 Completed [facility] of 00:00:00 [facility] Poliovirus, Live, 1992 Completed [facility]y of Oral, Trivalent 00:00:00 [facility] 1992 Completed [facility] 00:00:00 [facility] Heamophilus 1992 Completed [facility] of Influenza B 00:00:00 [facility] Hib-HbOC 1992 Completed [facility] of 00:00:00 [facility] Poliovirus, Live, 1992 Completed [facility] of Oral, Trivalent 00:00:00 [facility] 1992 Completed [facility] 00:00:00 [facility] Heamophilus 1992 Completed [facility] of Influenza B 00:00:00 [facility] Hib-HbOC 1992 Completed [facility] of 00:00:00 [facility] Poliovirus, Live, 1992 Completed [facility]y of Oral, Trivalent 00:00:00 [facility] 1992 Completed [facility] 00:00:00 [facility] Heamophilus 1992 Completed [facility] of Influenza B 00:00:00 [facility] Hib-HbOC 1992 Completed [facility] 00:00:00 [facility] Poliovirus, Live, 1992 Completed [facility] of Oral, Trivalent 00:00:00 [facility] 1992 Completed [facility] 00:00:00 [facility] Heamophilus 1992 Completed [facility] of Influenza B 00:00:00 [facility] Hib-HbOC 1992 Completed [facility] 00:00:00 [facility] Poliovirus, Live, 1992 Completed [facility] of Oral, Trivalent 00:00:00 [facility] 1992 Completed [facility] 00:00:00 [facility] Heamophilus 1992 Completed [facility] of Influenza B 00:00:00 [facility] Hib-HbOC 1992 Completed [facility] 00:00:00 [facility] Poliovirus, Live, 1992 Completed [facility] of Oral, Trivalent 00:00:00 [facility] 1992 Completed [facility] 00:00:00 [facility] Heamophilus 1992 Completed [facility] of Influenza B 00:00:00 [facility] Hib-HbOC 1992 Completed [facility] 00:00:00 [facility] Poliovirus, Live, 1992 Completed [facility] Oral, Trivalent 00:00:00 [facility] 1992 Completed [facility] 00[facility] [facility] Influenza B 00:00:00 [facility] Hib-HbOC 1992 Completed [facility] 00:00:00 [facility] Poliovirus, Live, 1992 Completed [facility] of Oral, Trivalent 00:00:00 [facility] 1992 Completed [facility] 00:00:00 [facility] Heamophilus 1992 Completed [facility] of Influenza B 00:00:00 [facility] Hib-HbO 1992 Completed [facility] 00:00:00 [facility] Poliovirus, Live, 1992 Completed [facility] of Oral, Trivalent 00:00:00 [facility] 1992 Completed [facility] 00:00:00 [facility] Heamophilus 1992 Completed [facility] of Influenza B 00:00:00 [facility] Hib-HbOC 1992 Completed [facility] 00:00:00 [facility] Poliovirus, Live, 1992 Completed [facility] of Oral, Trivalent 00:00:00 [facility] 1992 Completed [facility] 00:00:00 [facility] Heamophilus 1992 Completed [facility] of Influenza B 00:00:00 [facility] Hib-HbOC 1992 Completed [facility] 00:00:00 [facility] Poliovirus, Live, 1992 Completed [facility] of Oral, Trivalent 00:00:00 [facility] DT 1992 Completed [facility] 00:00:00 [facility] Heamophilus 1992 Completed [facility] of Influenza B 00:00:00 [facility] Hib-HbOC 1992 Completed [facility] 00:00:00 [facility] Poliovirus, Live, 1992 Completed [facility] of Oral, Trivalent 00:00:00 [facility] DT 1992 Completed [facility] 00:00:00 [facility] Heamophilus 1992 Completed [facility] of Influenza B 00:00:00 [facility] Hib-HbOC 1992 Completed [facility] 00:00:00 [facility] Poliovirus, Live, 1992 Completed [facility] of Oral, Trivalent 00:00:00 [facility] 1992 Completed [facility] 00:00:00 [facility] Heamophilus 1992 Completed [facility] of Influenza B 00:00:00 [facility] Hib-HbOC 1992 Completed [facility] 00:00:00 [facility] Poliovirus, Live, 1992 Completed [facility] of Oral, Trivalent 00:00:00 [facility] 1992 Completed [facility] 00[facility]00[facility] [facility] Com[facility] Influenza B 00:00:00 [facility] Hib-HbOC 1992 Completed [facility] 00:00:00 [facility] Poliovirus, Live, 1992 Completed [facility]y of Oral, Trivalent 00:00:00 [facility] 1992 Completed [facility] 00:00:00 [facility] Heamophilus 1992 Completed [facility] of Influenza B 00:00:00 [facility] Hib-HbOC 1992 Completed [facility] 00:00:00 [facility] Poliovirus, Live, 1992 Completed [facility] ity of Oral, Trivalent 00:00:00 [facility] 1992 Completed [facility] 00:00:00 [facility] Heamophilus 1992 Completed [facility] of Influenza B 00:00:00 [facility] Hib-HbOC 1992 Completed [facility] 00:00:00 [facility] Poliovirus, Live, 1992 Completed [facility]y of Oral, Trivalent 00:00:00 [facility] 1992 Completed [facility] 00:00:00 [facility] Heamophilus 1992 Completed [facility] of Influenza B 00:00:00 [facility] Hib-HbOC 1992 Completed [facility] 00:00:00 [facility] Poliovirus, Live, 1992 Completed [facility] ity of Oral, Trivalent 00:00:00 [facility] 1992 Completed [facility] 00:00:00 [facility] Heamophilus 1992 Completed [facility] of Influenza B 00:00:00 [facility] Hib-HbOC 1992 Completed [facility] 00:00:00 [facility] Poliovirus, Live, 1992 Completed [facility] ity of Oral, Trivalent 00:00:00 [facility] 1992 Completed [facility] 00:00:00 [facility] Heamophilus 1992 Completed [facility] of Influenza B 00:00:00 [facility] Hib-HbOC 1992 Completed [facility] 00:00:00 [facility] Poliovirus, Live, 1992 Completed [facility]y of Oral, Trivalent 00:00:00 [facility] 1992 Completed [facility] 00:00:00 [facility] Heamophilus 1992 Completed [facility] of Influenza B 00:00:00 [facility] Hib-HbOC 1992 Completed [facility] 00:00:00 [facility] Poliovirus, Live, 1992 Completed [facility] ity of Oral, Trivalent 00:00:00 [facility] 1992 Completed [facility] 00:00:00 [facility] Heamophilus 1992 Completed [facility] of Influenza B 00:00:00 [facility] Hib-HbOC 1992 Completed [facility] 00:00:00 [facility] Poliovirus, Live, 1992 Completed [facility]y of Oral, Trivalent 00:00:00 [facility] 1992 Completed [facility] 00:00:00 [facility] Heamophilus 1992 Completed [facility] of Influenza B 00:00:00 [facility] Hib-HbOC 1992 Completed [facility] 00:00:00 [facility] Poliovirus, Live, 1992 Completed [facility]y of Oral, Trivalent 00:00:00 [facility] 1992 Completed [facility] 00:00:00 [facility] Heamophilus 1992 Completed [facility] of Influenza B 00:00:00 [facility] Hib-HbOC 1992 Completed [facility] 00:00:00 [facility] Poliovirus, Live, 1992 Completed [facility] of Oral, Trivalent 00:00:00 [facility] 1992 Completed [facility] 00:00[facility] [facility] Com[facility] Influenza B 00:00:00 [facility] Hib-HbO 1992 Completed [facility] 00:00:00 [facility] Poliovirus, Live, 1992 Completed [facility]y of Oral, Trivalent 00:00:00 [facility] 1992 Completed [facility] 00[facility]00[facility] [facility] Com[facility] Influenza B 00:00:00 [facility] Hib-HbO 1992 Completed [facility] 00:00:00 [facility] Poliovirus, Live, 1992 Completed [facility] of Oral, Trivalent 00:00:00 [facility] 1992 Completed [facility] 00:00:00 [facility] Heamophilus 1992 Completed [facility] of Influenza B 00:00:00 [facility] Hib-HbOC 1992 Completed [facility] 00:00:00 [facility] Poliovirus, Live, 1992 Completed [facility]y of Oral, Trivalent 00:00:00 [facility] 1992 Completed [facility] 00:00[facility] [facility] Com[facility] Influenza B 00:00:00 [facility] Hib-HbOC 1992 Completed [facility] 00:00:00 [facility] Poliovirus, Live, 1992 Completed Univers ity of Oral, Trivalent 00:00:00 [facility] 1992 Completed [facility] 00:00:00 [facility] Heamophilus 1992 Completed [facility] of Influenza B 00:00:00 [facility] Hib-HbOC 1992 Completed [facility] 00:00:00 [facility] Poliovirus, Live, 1992 Completed [facility]y of Oral, Trivalent 00:00:00 [facility] 1992 Completed [facility] 00:00:00 [facility] Heamophilus 1992 Completed [facility] of Influenza B 00:00:00 [facility] Hib-HbOC 1992 Completed [facility] 00:00:00 [facility] Poliovirus, Live, 1992 Completed [facility] of Oral, Trivalent 00:00:00 [facility] 1992 Completed [facility] 00:00[facility] [facility] Completed [facility] Influenza B 00:00:00 [facility] Hib-HbOC 1992 Completed [facility] 00:00:00 [facility] Poliovirus, Live, 1992 Completed [facility] Oral, Trivalent 00:00:00 [facility] 1992 Completed [facility] Com[facility] Influenza B 00:00:00 [facility] Hib-HbOC 1992 Completed [facility] 00:00:00 [facility] Poliovirus, Live, 1992 Completed [facility] ity of Oral, Trivalent 00:00:00 [facility] 1992 Completed [facility] 00:00:00 [facility] Heamophilus 1992 Completed [facility] of Influenza B 00:00:00 [facility] Hib-HbOC 1992 Completed [facility] 00:00:00 [facility] Poliovirus, Live, 1992 Completed [facility] of Oral, Trivalent 00:00:00 [facility] 1992 Completed [facility] 00:00[facility] [facility] Com[facility] Influenza B 00:00:00 [facility] Hib-HbOC 1992 Completed [facility] 00:00:00 [facility] Poliovirus, Live, 1992 Completed [facility]y of Oral, Trivalent 00:00:00 [facility] DT 1992 Completed [facility] 00:00:00 [facility] Heamophilus 1992 Completed [facility] of Influenza B 00:00:00 [facility] Hib-HbOC 1992 Completed [facility] 00:00:00 [facility] Poliovirus, Live, 1992 Completed [facility] of Oral, Trivalent 00:00:00 [facility] DT 1992 Completed [facility] 00:00:00 [facility] Heamophilus 1992 Completed [facility] of Influenza B 00:00:00 [facility] Hib-HbOC 1992 Completed [facility] 00:00:00 [facility] Poliovirus, Live, 1992 Completed [facility]y of Oral, Trivalent 00:00:00 [facility] 1992 Completed [facility] 00:00:00 [facility] Heamophilus 1992 Completed [facility] of Influenza B 00:00:00 [facility] Hib-HbOC 1992 Completed [facility] 00:00:00 [facility] Poliovirus, Live, 1992 Completed [facility]y of Oral, Trivalent 00:00:00 [facility] 1992 Completed [facility] 00:00:00 [facility] Heamophilus 1992 Completed [facility] of Influenza B 00:00:00 [facility] Hib-HbOC 1992 Completed [facility] 00:00:00 [facility] Poliovirus, Live, 1992 Completed [facility]y of Oral, Trivalent 00:00:00 [facility] DT 1992 Completed [facility] 00:00:00 [facility] Heamophilus 1992 Completed [facility] of Influenza B 00:00:00 [facility] Hib-HbOC 1992 Completed [facility] 00:00:00 [facility] Poliovirus, Live, 1992 Completed [facility] ity of Oral, Trivalent 00:00:00 [facility] DT 1992 Completed [facility] 00:00:00 [facility] Heamophilus 1992 Completed [facility] of Influenza B 00:00:00 [facility] Hib-HbOC 1992 Completed [facility] 00:00:00 [facility] Poliovirus, Live, 1992 Completed [facility]y of Oral, Trivalent 00:00:00 [facility] 1992 Completed [facility] 00:00:00 [facility] Heamophilus 1992 Completed [facility] of Influenza B 00:00:00 [facility] Hib-HbO 1992 Completed [facility] 00:00:00 [facility] Poliovirus, Live, 1992 Completed [facility] of Oral, Trivalent 00:00:00 [facility] 1992 Completed [facility] 00[facility]00 [facility] Com[facility] Influenza B 00:00:00 [facility] Hib-HbO 1992 Completed [facility] 00:00:00 [facility] Poliovirus, Live, 1992 Completed [facility]y of Oral, Trivalent 00:00:00 [facility] 1992 Completed [facility] 00:00[facility] [facility] Com[facility] Influenza B 00:00:00 [facility] Hib-HbO 1992 Completed [facility] 00:00:00 [facility] Poliovirus, Live, 1992 Completed [facility] of Oral, Trivalent 00:00:00 [facility] 1992 Completed [facility] 00:00:00 [facility] Heamophilus 1992 Completed [facility] of Influenza B 00:00:00 [facility] Hib-HbOC 1992 Completed [facility] 00:00:00 [facility] Poliovirus, Live, 1992 Completed [facility]y of Oral, Trivalent 00:00:00 [facility] 1992 Completed [facility] 00:00[facility] [facility] Com[facility] Influenza B 00:00:00 [facility] Hib-HbOC 1992 Completed [facility] 00:00:00 [facility] Poliovirus, Live, 1992 Completed [facility] ity of Oral, Trivalent 00:00:00 [facility] 1992 Completed [facility] 00:00:00 [facility] Heamophilus 1992 Completed [facility] of Influenza B 00:00:00 [facility] Hib-HbO 1992 Completed [facility] 00:00:00 [facility] Poliovirus, Live, 1992 Completed Univers ity of Oral, Trivalent 00:00:00 [facility] 1992 Completed [facility] 00:00:00 [facility] Heamophilus 1992 Completed [facility] of Influenza B 00:00:00 [facility] Hib-HbOC 1992 Completed [facility] 00:00:00 [facility] Poliovirus, Live, 1992 Completed [facility] of Oral, Trivalent 00:00:00 [facility] 1992 Completed [facility] 00:[facility]00 [facility] Com[facility] Influenza B 00:00:00 [facility] Hib-HbO 1992 Completed [facility] 00:00:00 [facility] Poliovirus, Live, 1992 Completed [facility] ity of Oral, Trivalent 00:00:00 [facility] 1992 Completed [facility] 00:00:00 [facility] Com[facility] Influenza B 00:00:00 [facility] Hib-[facility] 1992 Completed [facility] 00:00:00 [facility] Poliovirus, Live, 1992 Completed [facility] it[facility] of Oral, Trivalent 00:00:00 [facility] 1992 Completed [facility] 00:00:[address] [facility] Com[facility] Influenza B 00:00:00 [facility] Hib-HbOC 1992 Completed [facility] 00:00:00 [facility] Poliovirus, Live, 1992 Completed [facility]y of Oral, Trivalent 00:00:00 [facility] SARS-COV-2 COVID-19 Unknown Completed Unive rsity of PFIZER VACCINE [facility] SARS-COV-2 COVID-19 Unknown Completed Unive rsity of PFIZER VACCINE [facility] Branch DTP Unknown Completed [facility] DTP Unknown Completed [facility] DTP Unknown Completed [facility] DTP Unknown Completed [facility] DTaP, Unspecified Unknown Completed Univers ity of Formulation [facility] Influenza Virus Unknown Completed Universit y of Vaccine Quad .5 mL [facility] 6+ MO Branch (FLUZONE/FLULAVAL/FL UARIX) Hep B, Unspecified Unknown Completed Univer sity of Formulation [facility] HEPATITIS A Unknown Completed [facility] HEPATITIS A Unknown Completed [facility] Hep B, Unspecified Unknown Completed Univer sity of Formulation [facility] Hep B, Adol or Pedi Unknown Completed Unive rsity of Dosage [facility] Hep B, Adol or Pedi Unknown Completed Unive rsity of Dosage [facility] Hep B, Adol or Pedi Unknown Completed Unive rsity of Dosage [facility] Heamophilus Unknown Completed [facility] Influenza B [facility] Heamophilus Unknown Completed [facility] Influenza [facility] Heamophilus Unknown Completed [facility] Influenza B [facility] Heamophilus Unknown Completed [facility] Hib-HbOC Unknown Completed [facility] Hib-HbOC Unknown Completed [facility] Hib-HbOC Unknown Completed [facility] Hib-HbOC Unknown Completed [facility] HPV Unknown Completed [facility] HPV Unknown Completed [facility] HPV Unknown Completed [facility] Meningococcal Unknown Completed [facility] (groups A, C, Y and Branc h W-135) conjugate vaccine (MCV4P) MMR Unknown Completed [facility] MMR Unknown Completed [facility] Poliovirus, Live, Unknown Completed Univers ity of Oral, Trivalent [facility] Poliovirus, Live, Unknown Completed Univers ity of Oral, Trivalent [facility] Poliovirus, Live, Unknown Completed Univers ity of Oral, Trivalent [facility] Poliovirus, Live, Unknown Completed Univers ity of Oral, Trivalent [facility] Tetanus/Diptheria Unknown Completed Univers ity [facility] TDAP Unknown Completed [facility] Varicella Unknown Completed [facility] (varivax)(chicken [place] [facility] pox) Branch Varicella Unknown Completed [facility] (varivax)(chicken [place] [facility] pox) Branch SARS-COV-2 COVID-19 Unknown Completed Unive rsity of PFIZER VACCINE [facility] Branch SARS-COV-2 COVID-19 Unknown Completed Unive rsity of PFIZER VACCINE [facility] DTP Unknown Completed [facility] DTP Unknown Completed [facility] DTP Unknown Completed [facility] DTP Unknown Completed [facility] DTaP, Unspecified Unknown Completed Univers ity of Formulation [facility] Influenza Virus Unknown Completed Universit y of Vaccine Quad .5 mL [facility] IM 6+ MO Branch (FLUZONE/FLULAVAL/FL UARIX) Hep B, Unspecified Unknown Completed Univer sity of Formulation [facility] HEPATITIS A Unknown Completed [facility] HEPATITIS A Unknown Completed [facility] Hep B, Unspecified Unknown Completed Univer sity of Formulation [facility] Hep B, Adol or Pedi Unknown Completed Unive rsity of Dosage [facility] Hep B, Adol or Pedi Unknown Completed Unive rsity of Dosage [facility] Hep B, Adol or Pedi Unknown Completed Unive rsity of Dosage [facility] Heamophilus Unknown Completed [facility] Influenza [facility] Heamophilus Unknown Completed [facility] Heamophilus Unknown Completed [facility] Influenza B [facility] Heamophilus Unknown Completed [facility] Hib-HbOC Unknown Completed [facility] Hib-HbOC Unknown Completed [facility] Hib-HbOC Unknown Completed [facility] Hib-HbOC Unknown Completed [facility] HPV Unknown Completed [facility] HPV Unknown Completed [facility] HPV Unknown Completed [facility] Meningococcal Unknown Completed [facility] (groups A, C, Y and Branc h W-135) conjugate vaccine (MCV4P) MMR Unknown Completed [facility] MMR Unknown Completed [facility] Poliovirus, Live, Unknown Completed Univers ity of Oral, Trivalent [facility] Poliovirus, Live, Unknown Completed Univers ity of Oral, Trivalent [facility] Poliovirus, Live, Unknown Completed Univers ity of Oral, Trivalent [facility] Poliovirus, Live, Unknown Completed Univers ity of Oral, Trivalent [facility] Tetanus/Diptheria Unknown Completed Univers ity [facility] TDAP Unknown Completed [facility] Varicella Unknown Completed [facility] (varivax)(chicken [place] [facility] pox) Branch Varicella Unknown Completed [facility] (varivax)(chicken [place] [facility] pox) Branch SARS-COV-2 COVID-19 Unknown Completed Unive rsity of PFIZER VACCINE [facility] Branch SARS-COV-2 COVID-19 Unknown Completed Unive rsity of PFIZER VACCINE [facility] Branch DTP Unknown Completed [facility] DTP Unknown Completed [facility] DTP Unknown Completed [facility] DTP Unknown Completed [facility] DTaP, Unspecified Unknown Completed Univers ity of Formulation [facility] Influenza Virus Unknown Completed Universit y of Vaccine Quad .5 mL [facility] 6+ MO Branch (FLUZONE/FLULAVAL/FL UARIX) Hep B, Unspecified Unknown Completed Univer sity of Formulation [facility] HEPATITIS A Unknown Completed [facility] HEPATITIS A Unknown Completed [facility] Hep B, Unspecified Unknown Completed Univer sity of Formulation [facility] Hep B, Adol or Pedi Unknown Completed Unive rsity of Dosage [facility] Hep B, Adol or Pedi Unknown Completed Unive rsity of Dosage [facility] Hep B, Adol or Pedi Unknown Completed Unive rsity of Dosage [facility] Heamophilus Unknown Completed [facility] Influenza [facility] Heamophilus Unknown Completed [facility] Influenza [facility] Heamophilus Unknown Completed [facility] Influenza [facility] Heamophilus Unknown Completed [facility] Influenza [facility] Hib-HbOC Unknown Completed [facility] Hib-HbOC Unknown Completed [facility] Hib-HbOC Unknown Completed [facility] Hib-HbOC Unknown Completed [facility] HPV Unknown Completed [facility] HPV Unknown Completed [facility] HPV Unknown Completed [facility] Meningococcal Unknown Completed [facility] (groups A, C, Y and Branc h W-135) conjugate vaccine (MCV4P) MMR Unknown Completed [facility] MMR Unknown Completed [facility] Poliovirus, Live, Unknown Completed Univers ity of Oral, Trivalent [facility] Branch Poliovirus, Live, Unknown Completed Univers ity of Oral, Trivalent [facility] Poliovirus, Live, Unknown Completed Univers ity of Oral, Trivalent [facility] Poliovirus, Live, Unknown Completed Univers ity of Oral, Trivalent [facility] Tetanus/Diptheria Unknown Completed Univers ity [facility] TDAP Unknown Completed [facility] Varicella Unknown Completed [facility] (varivax)(chicken [place] [facility] pox) Branch Varicella Unknown Completed [facility] (varivax)(chicken [place] [facility] pox) Branch SARS-COV-2 COVID-19 Unknown Completed Unive rsity of PFIZER VACCINE [facility] SARS-COV-2 COVID-19 Unknown Completed Unive rsity of PFIZER VACCINE [facility] DTP Unknown Completed [facility] DTP Unknown Completed [facility] DTP Unknown Completed [facility] DTP Unknown Completed [facility] DTaP, Unspecified Unknown Completed Univers ity of Formulation [facility] Influenza Virus Unknown Completed Universit y of Vaccine Quad .5 mL [facility] 6+ [place] Branch (FLUZONE/FLULAVAL/FL UARIX) Hep B, Unspecified Unknown Completed Univer sity of Formulation [facility] HEPATITIS A Unknown Completed [facility] HEPATITIS A Unknown Completed [facility] Hep B, Unspecified Unknown Completed Univer sity of [facility] Hep B, Adol or Pedi Unknown Completed Unive rsity of Dosage [facility] Hep B, Adol or Pedi Unknown Completed Unive rsity of Dosage [facility] Hep B, Adol or Pedi Unknown Completed Unive rsity of Dosage [facility] Heamophilus Unknown Completed [facility] Heamophilus Unknown Completed [facility] Influenza [facility] Heamophilus Unknown Completed [facility] Influenza [facility] Heamophil[facility] Unknown Completed [facility] Influenza [facility] Hib-HbOC Unknown Completed [facility] Hib-HbOC Unknown Completed [facility] Hib-HbOC Unknown Completed [facility] Hib-HbOC Unknown Completed [facility] HPV Unknown Completed [facility] HPV Unknown Completed [facility] HPV Unknown Completed [facility] Meningococcal Unknown Completed [facility] (groups A, C, Y and Branc h W-135) conjugate vaccine (MCV4P) MMR Unknown Completed [facility] MMR Unknown Completed [facility] Poliovirus, Live, Unknown Completed [facility] Oral, [facility] [place] [facility] Poliovirus, Live, Unknown Completed [facility] ity of Oral, Trivalent [facility] Poliovirus, Live, Unknown Completed Univers ity of Oral, Trivalent [facility] Poliovirus, Live, Unknown Completed Univers ity of Oral, Trivalent [facility] Tetanus/Diptheria Unknown Completed Univers ity [facility] TDAP Unknown Completed [facility] Varicella Unknown Completed University (varivax[facility] [place] [facility] pox) Branch Varicella Unknown Completed [facility] (varivax[facility] [place] [facility] pox[place] Branch SARS-COV-2 COVID-19 Unknown Completed Unive rsity of PFIZER VACCINE [facility] SARS-COV-2 COVID-19 Unknown Completed Unive rsity of PFIZER VACCINE [facility] DTP Unknown Completed [facility] DTP Unknown Completed [facility] DTP Unknown Completed [facility] DTP Unknown Completed [facility] DTaP, Unspecified Unknown Completed [facility] it[facility] of Formulation [facility] Influenza Virus Unknown Completed [facility]it y of Vaccine Quad .5 mL [facility] 6+ [place] Branch (FLUZONE/FLULAVAL/FL UARIX) Hep B, Unspecified Unknown Completed Univer sity of Formulation [facility] HEPATITIS A Unknown Completed [facility] HEPATITIS A Unknown Completed [facility] Hep B, Unspecified Unknown Completed Univer sity of Formulation [facility] Hep B, Adol or Pedi Unknown Completed Unive rsity of Dosage [facility] Hep B, Adol or Pedi Unknown Completed Unive rsity of Dosage [facility] Hep B, Adol or Pedi Unknown Completed Unive rsity of Dosage [facility] Heamophilus Unknown Completed [facility] Influenza B [facility] Heamophilus Unknown Completed [facility] Influenza B [facility] Heamophilus Unknown Completed [facility] Influenza B [facility] Heamophilus Unknown Completed [facility] Influenza B [facility] Hib-HbOC Unknown Completed [facility] Hib-HbOC Unknown Completed [facility] Hib-HbOC Unknown Completed [facility] Hib-HbOC Unknown Completed [facility] HPV Unknown Completed [facility] HPV Unknown Completed [facility] HPV Unknown Completed [facility] Meningococcal Unknown Completed [facility] (groups A, C, Y and Branc h W-135) conjugate vaccine (MCV4P) MMR Unknown Completed [facility] MMR Unknown Completed [facility] Poliovirus, Live, Unknown Completed Univers ity of Oral, Trivalent [facility] Poliovirus, Live, Unknown Completed [facility] ity of Oral, Trivalent [facility] Poliovirus, Live, Unknown Completed [facility] ity of Oral, Trivalent [facility] Poliovirus, Live, Unknown Completed [facility] ity of Oral, Trivalent [facility] Tetanus/Diptheria Unknown Completed [facility]y [facility] TDAP Unknown Completed [facility] Varicella Unknown Completed [facility] (varivax[place] [place] [facility] pox[facility] Branch Varicella Unknown Completed [facility] (varivax)(chicken [place] [facility] pox) Branch SARS-COV-2 COVID-19 Unknown Completed Unive rsity of PFIZER VACCINE [facility] SARS-COV-2 COVID-19 Unknown Completed Unive rsity of PFIZER VACCINE [facility] DTP Unknown Completed [facility] DTP Unknown Completed [facility] DTP Unknown Completed [facility] DTP Unknown Completed [facility] DTaP, Unspecified Unknown Completed [facility] it[facility] of Formulation [facility] Influenza Virus Unknown Completed [facility]it y of Vaccine Quad .5 mL [facility] 6+ [place] Branch (FLUZONE/FLULAVAL/FL UARIX) Hep B, Unspecified Unknown Completed Univer sity of Formulation [facility] HEPATITIS A Unknown Completed [facility] HEPATITIS A Unknown Completed [facility] Hep B, Unspecified Unknown Completed Univer sity of Formulation [facility] Hep B, Adol or Pedi Unknown Completed Unive rsity of Dosage [facility] Hep B, Adol or Pedi Unknown Completed Unive rsity of Dosage [facility] Hep B, Adol or Pedi Unknown Completed Unive rsity of Dosage [facility] Heamophilus Unknown Completed [facility] Influenza B [facility] Heamophilus Unknown Completed [facility] Influenza B [facility] Heamophilus Unknown Completed [facility] Influenza B [facility] Heamophilus Unknown Completed [facility] Influenza B [facility] Hib-HbOC Unknown Completed [facility] Hib-HbOC Unknown Completed [facility] Hib-HbOC Unknown Completed [facility] Hib-HbOC Unknown Completed [facility] HPV Unknown Completed [facility] HPV Unknown Completed [facility] HPV Unknown Completed [facility] Meningococcal Unknown Completed University of Polysaccharide [facility] (groups A, C, Y and Branc h W-135) conjugate vaccine (MCV4P) MMR Unknown Completed [facility] MMR Unknown Completed [facility] Poliovirus, Live, Unknown Completed Univers ity of Oral, Trivalent [facility] Poliovirus, Live, Unknown Completed [facility] ity of Oral, Trivalent [facility] Poliovirus, Live, Unknown Completed [facility] ity of Oral, Trivalent [facility] Poliovirus, Live, Unknown Completed [facility] ity of Oral, Trivalent [facility] Tetanus/Diptheria Unknown Completed [facility] ity [facility] TDAP Unknown Completed [facility] Varicella Unknown Completed University (varivax[facility] [place] [facility] pox) Branch Varicella Unknown Completed [facility] (varivax)(chicken [place] [facility] pox) Branch SARS-COV-2 COVID-19 Unknown Completed Unive rsity of PFIZER VACCINE [facility] SARS-COV-2 COVID-19 Unknown Completed Unive rsity of PFIZER VACCINE [facility] DTP Unknown Completed [facility] DTP Unknown Completed [facility] DTP Unknown Completed [facility] DTP Unknown Completed [facility] DTaP, Unspecified Unknown Completed [facility] ity of Formulation [facility] Influenza Virus Unknown Completed [facility]it y of Vaccine Quad .5 mL [facility] 6+ [place] Branch (FLUZONE/FLULAVAL/FL UARIX) Hep B, Unspecified Unknown Completed Univer sity of Formulation [facility] HEPATITIS A Unknown Completed [facility] HEPATITIS A Unknown Completed [facility] Hep B, Unspecified Unknown Completed Univer sity of Formulation [facility] Hep B, Adol or Pedi Unknown Completed Unive rsity of Dosage [facility] Hep B, Adol or Pedi Unknown Completed Unive rsity of Dosage [facility] Hep B, Adol or Pedi Unknown Completed Unive rsity of Dosage [facility] Heamophilus Unknown Completed [facility] Influenza B [facility] Heamophilus Unknown Completed [facility] Influenza B [facility] Heamophilus Unknown Completed [facility] Influenza B [facility] Heamophilus Unknown Completed [facility] Influenza B [facility] Hib-HbOC Unknown Completed [facility] Hib-HbOC Unknown Completed [facility] Hib-HbOC Unknown Completed [facility] Hib-HbOC Unknown Completed [facility] HPV Unknown Completed [facility] HPV Unknown Completed [facility] HPV Unknown Completed [facility] Meningococcal Unknown Completed [facility] (groups A, C, Y and Branc h W-135) conjugate vaccine (MCV4P) MMR Unknown Completed [facility] MMR Unknown Completed [facility] Poliovirus, Live, Unknown Completed [facility]alent [facility], Live, Unknown Completed [facility] ity of Oral, Trivalent [facility] Poliovirus, Live, Unknown Completed [facility] ity of Oral, Trivalent [facility] Poliovirus, Live, Unknown Completed [facility] ity of Oral, Trivalent [facility] Tetanus/Diptheria Unknown Completed Univers ity [facility] TDAP Unknown Completed [facility] Varicella Unknown Completed [facility] (varivax)(chicken [place] [facility] pox) Branch Varicella Unknown Completed [facility] (varivax)(chicken [place] [facility] pox) Branch SARS-COV-2 COVID-19 Unknown Completed Unive rsity of PFIZER VACCINE [facility] SARS-COV-2 COVID-19 Unknown Completed Unive rsity of PFIZER VACCINE [facility] DTP Unknown Completed [facility] DTP Unknown Completed [facility] DTP Unknown Completed [facility] DTP Unknown Completed [facility] DTaP, Unspecified Unknown Completed [facility] ity of Formulation [facility] Influenza Virus Unknown Completed [facility]it y of Vaccine Quad .5 mL [facility] 6+ [place] [facility] (FLUZONE/FLULAVAL/FL UARIX) Hep B, Unspecified Unknown Completed Univer sity of Formulation [facility] HEPATITIS A Unknown Completed [facility] HEPATITIS A Unknown Completed [facility] Hep B, Unspecified Unknown Completed Univer sity of Formulation [facility] Hep B, Adol or Pedi Unknown Completed Unive rsity of Dosage [facility] Hep B, Adol or Pedi Unknown Completed Unive rsity of Dosage [facility] Hep B, Adol or Pedi Unknown Completed Unive rsity of Dosage [facility] Heamophilus Unknown Completed [facility] Influenza B [facility] Heamophilus Unknown Completed [facility] Influenza B [facility] Heamophilus Unknown Completed [facility] Influenza [facility] Heamophil[facility] Unknown Completed [facility] Influenza [facility] Hib-HbOC Unknown Completed [facility] Hib-HbOC Unknown Completed [facility] Hib-HbOC Unknown Completed [facility] Hib-HbOC Unknown Completed [facility] HPV Unknown Completed [facility] HPV Unknown Completed [facility] HPV Unknown Completed [facility] Meningococcal Unknown Completed [facility] (groups A, C, Y and Branc h W-135) conjugate vaccine (MCV4P) MMR Unknown Completed [facility] MMR Unknown Completed [facility] Poliovirus, Live, Unknown Completed Univers ity of Oral, Trivalent [facility] Poliovirus, Live, Unknown Completed Univers ity of Oral, Trivalent [facility] Poliovirus, Live, Unknown Completed Univers ity of Oral, Trivalent [facility] Poliovirus, Live, Unknown Completed Univers ity of Oral, Trivalent [facility] Tetanus/Diptheria Unknown Completed Univers ity [facility] TDAP Unknown Completed [facility] Varicella Unknown Completed [facility] (varivax[facility] [place] [facility] pox) Branch Varicella Unknown Completed [facility] (varivax)(chicken [place] [facility] pox) Branch SARS-COV-2 COVID-19 Unknown Completed Unive rsity of PFIZER VACCINE [facility] SARS-COV-2 COVID-19 Unknown Completed Unive rsity of PFIZER VACCINE [facility] DTP Unknown Completed [facility] DTP Unknown Completed [facility] DTP Unknown Completed [facility] DTP Unknown Completed [facility] DTaP, Unspecified Unknown Completed [facility] ity of Formulation [facility] Influenza Virus Unknown Completed Universit y of Vaccine Quad .5 mL [facility] 6+ [place] Branch (FLUZONE/FLULAVAL/FL UARIX) Hep B, Unspecified Unknown Completed Univer sity of Formulation [facility] HEPATITIS A Unknown Completed [facility] HEPATITIS A Unknown Completed [facility] Hep B, Unspecified Unknown Completed Univer sity of Formulation [facility] Hep B, Adol or Pedi Unknown Completed Unive rsity of Dosage [facility] Hep B, Adol or Pedi Unknown Completed Unive rsity of Dosage [facility] Hep B, Adol or Pedi Unknown Completed Unive rsity of Dosage [facility] Heamophilus Unknown Completed [facility] Influenza B [facility] Heamophilus Unknown Completed [facility] Influenza B [facility] Heamophilus Unknown Completed [facility] Influenza B [facility] Heamophilus Unknown Completed [facility] Influenza [facility] Hib-HbOC Unknown Completed [facility] Hib-HbOC Unknown Completed [facility] Hib-HbOC Unknown Completed [facility] Hib-HbOC Unknown Completed [facility] HPV Unknown Completed [facility] HPV Unknown Completed [facility] HPV Unknown Completed [facility] Meningococcal Unknown Completed [facility] (groups A, C, Y and Branc h W-135) conjugate vaccine (MCV4P) MMR Unknown Completed [facility] MMR Unknown Completed [facility] Poliovirus, Live, Unknown Completed Univers ity of Oral, Trivalent [facility] Poliovirus, Live, Unknown Completed Univers ity of Oral, Trivalent [facility] Poliovirus, Live, Unknown Completed Univers ity of Oral, Trivalent [facility] Poliovirus, Live, Unknown Completed Univers ity of Oral, Trivalent [facility] Tetanus/Diptheria Unknown Completed Univers ity [facility] TDAP Unknown Completed [facility] Varicella Unknown Completed [facility] (varivax)(chicken [place] [facility] pox) Branch Varicella Unknown Completed [facility] (varivax)(chicken [place] [facility] pox) Branch SARS-COV-2 COVID-19 Unknown Completed Unive rsity of PFIZER VACCINE [facility] SARS-COV-2 COVID-19 Unknown Completed Unive rsity of PFIZER VACCINE [facility] DTP Unknown Completed [facility] DTP Unknown Completed [facility] DTP Unknown Completed [facility] DTP Unknown Completed [facility] DTaP, Unspecified Unknown Completed [facility] ity of Formulation [facility] Influenza Virus Unknown Completed Universit y of Vaccine Quad .5 mL [facility] 6+ [place] Branch (FLUZONE/FLULAVAL/FL UARIX) Hep B, Unspecified Unknown Completed Univer sity of Formulation [facility] HEPATITIS A Unknown Completed [facility] HEPATITIS A Unknown Completed [facility] Hep B, Unspecified Unknown Completed Univer sity of Formulation [facility] Hep B, Adol or Pedi Unknown Completed Unive rsity of Dosage [facility] Hep B, Adol or Pedi Unknown Completed Unive rsity of Dosage [facility] Hep B, Adol or Pedi Unknown Completed Unive rsity of Dosage [facility] Heamophilus Unknown Completed [facility] Influenza B [facility] Heamophilus Unknown Completed [facility] Influenza [facility] Heamophilus Unknown Completed [facility] Influenza B [facility] Heamophilus Unknown Completed [facility] Influenza [facility] Hib-HbOC Unknown Completed [facility] Hib-HbOC Unknown Completed [facility] Hib-HbOC Unknown Completed [facility] Hib-HbOC Unknown Completed [facility] HPV Unknown Completed [facility] HPV Unknown Completed [facility] HPV Unknown Completed [facility] Meningococcal Unknown Completed [facility] (groups A, C, Y and Branc h W-135) conjugate vaccine (MCV4P) MMR Unknown Completed [facility] MMR Unknown Completed [facility] Poliovirus, Live, Unknown Completed Univers ity of Oral, Trivalent [facility] Poliovirus, Live, Unknown Completed Univers ity of Oral, Trivalent [facility] Poliovirus, Live, Unknown Completed Univers ity of Oral, Trivalent [facility] Poliovirus, Live, Unknown Completed Univers ity of Oral, Trivalent [facility] Tetanus/Diptheria Unknown Completed Univers ity [facility] TDAP Unknown Completed [facility] Varicella Unknown Completed [facility] (varivax)(chicken [place] [facility] pox) Branch Varicella Unknown Completed [facility] (varivax)(chicken [place] [facility] pox) [place] SARS-COV-2 COVID-19 Unknown Completed Unive rsity of PFIZER VACCINE [facility] SARS-COV-2 COVID-19 Unknown Completed Unive rsity of PFIZER VACCINE [facility] DTP Unknown Completed [facility] DTP Unknown Completed [facility] DTP Unknown Completed [facility] DTP Unknown Completed [facility] DTaP, Unspecified Unknown Completed [facility] ity of Formulation [facility] Influenza Virus Unknown Completed Universit y of Vaccine Quad .5 mL [facility] 6+ [place] Branch (FLUZONE/FLULAVAL/FL UARIX) Hep B, Unspecified Unknown Completed Univer sity of Formulation [facility] HEPATITIS A Unknown Completed [facility] HEPATITIS A Unknown Completed [facility] Hep B, Unspecified Unknown Completed Univer sity of Formulation [facility] Hep B, Adol or Pedi Unknown Completed Unive rsity of Dosage [facility] Hep B, Adol or Pedi Unknown Completed Unive rsity of Dosage [facility] Hep B, Adol or Pedi Unknown Completed Unive rsity of Dosage [facility] Heamophilus Unknown Completed [facility] Influenza B [facility] Heamophilus Unknown Completed [facility] Influenza B [facility] Heamophilus Unknown Completed [facility] Influenza B [facility] Heamophilus Unknown Completed [facility] Influenza [facility] Hib-HbOC Unknown Completed [facility] Hib-HbOC Unknown Completed [facility] Hib-HbOC Unknown Completed [facility] Hib-HbOC Unknown Completed [facility] HPV Unknown Completed [facility] HPV Unknown Completed [facility] HPV Unknown Completed [facility] Meningococcal Unknown Completed [facility] (groups A, C, Y and Branc h W-135) conjugate vaccine (MCV4P) MMR Unknown Completed [facility] MMR Unknown Completed [facility] Poliovirus, Live, Unknown Completed Univers ity of Oral, Trivalent [facility] Poliovirus, Live, Unknown Completed Univers ity of Oral, Trivalent [facility] Poliovirus, Live, Unknown Completed Univers ity of Oral, Trivalent [facility] Poliovirus, Live, Unknown Completed Univers ity of Oral, Trivalent [facility] Tetanus/Diptheria Unknown Completed Univers ity [facility] TDAP Unknown Completed [facility] Varicella Unknown Completed [facility] (varivax)(chicken [place] [facility] pox) Branch Varicella Unknown Completed [facility] (varivax)(chicken [place] [facility] pox) Branch SARS-COV-2 COVID-19 Unknown Completed Unive rsity of PFIZER VACCINE [facility] SARS-COV-2 COVID-19 Unknown Completed Unive rsity of PFIZER VACCINE [facility] DTP Unknown Completed [facility] DTP Unknown Completed [facility] DTP Unknown Completed [facility] DTP Unknown Completed [facility] DTaP, Unspecified Unknown Completed [facility] ity of Formulation [facility] Influenza Virus Unknown Completed Universit y of Vaccine Quad .5 mL [facility] 6+ [place] Branch (FLUZONE/FLULAVAL/FL UARIX) Hep B, Unspecified Unknown Completed Univer sity of Formulation [facility] HEPATITIS A Unknown Completed [facility] HEPATITIS A Unknown Completed [facility] Hep B, Unspecified Unknown Completed Univer sity of Formulation [facility] Hep B, Adol or Pedi Unknown Completed Unive rsity of Dosage [facility] Hep B, Adol or Pedi Unknown Completed Unive rsity of Dosage [facility] Hep B, Adol or Pedi Unknown Completed Unive rsity of Dosage [facility] Heamophilus Unknown Completed [facility] Influenza [facility] Heamophilus Unknown Completed [facility] Influenza B [facility] Heamophilus Unknown Completed [facility] Influenza B [facility] Heamophilus Unknown Completed [facility] Hib-HbOC Unknown Completed [facility] Hib-HbOC Unknown Completed [facility] Hib-HbOC Unknown Completed [facility] Hib-HbOC Unknown Completed [facility] HPV Unknown Completed [facility] HPV Unknown Completed [facility] HPV Unknown Completed [facility] Meningococcal Unknown Completed [facility] Polysaccharide [facility] (groups A, C, Y and Branc h W-135) conjugate vaccine (MCV4P) MMR Unknown Completed [facility] MMR Unknown Completed [facility] Poliovirus, Live, Unknown Completed Univers ity of Oral, Trivalent [facility] Poliovirus, Live, Unknown Completed Univers ity of Oral, Trivalent [facility] Poliovirus, Live, Unknown Completed Univers ity of Oral, Trivalent [facility] Poliovirus, Live, Unknown Completed Univers ity of Oral, Trivalent [facility] Tetanus/Diptheria Unknown Completed Univers ity [facility] TDAP Unknown Completed [facility] Varicella Unknown Completed University of (varivax)(ch[facility] [place] [facility] pox) Branch Varicella Unknown Completed University (varivax)([facility] [place] [facility] pox[facility] Branch SARS-COV-2 COVID-19 Unknown Completed Unive rsity of PFIZER VACCINE [facility] SARS-COV-2 COVID-19 Unknown Completed Unive rsity of PFIZER VACCINE [facility] Branch DTP Unknown Completed [facility] DTP Unknown Completed [facility] DTP Unknown Completed [facility] DTP Unknown Completed [facility] DTaP, Unspecified Unknown Completed Univers ity of Formulation [facility] Influenza Virus Unknown Completed Universit y of Vaccine Quad .5 mL [facility] 6+ [place] Branch (FLUZONE/FLULAVAL/FL UARIX) Hep B, Unspecified Unknown Completed Univer sity of [facility] HEPATITIS A Unknown Completed [facility] HEPATITIS A Unknown Completed [facility] Hep B, Unspecified Unknown Completed Univer sity of [facility] Hep B, Adol or Pedi Unknown Completed Unive rsity of Dosage [facility] Hep B, Adol or Pedi Unknown Completed Unive rsity of Dosage [facility] Hep B, Adol or Pedi Unknown Completed Unive rsity of Dosage [facility] Heamophilus Unknown Completed [facility] Influenza [facility] Unknown Completed [facility] Heamophilus Unknown Completed [facility] Influenza [facility] Unknown Completed [facility] Influenza [facility] Hib-HbOC Unknown Completed [facility] Hib-HbOC Unknown Completed [facility] Hib-HbOC Unknown Completed [facility] Hib-HbOC Unknown Completed [facility] HPV Unknown Completed [facility] HPV Unknown Completed [facility] HPV Unknown Completed [facility] Meningococcal Unknown Completed [facility] (groups A, C, Y and Branc h W-135) conjugate vaccine (MCV4P) MMR Unknown Completed [facility] MMR Unknown Completed [facility] Poliovirus, Live, Unknown Completed Univers ity of Oral, Trivalent [facility] Poliovirus, Live, Unknown Completed Univers ity of Oral, Trivalent [facility] Poliovirus, Live, Unknown Completed Univers ity of Oral, Trivalent [facility] Poliovirus, Live, Unknown Completed Univers ity of Oral, Trivalent [facility] Tetanus/Diptheria Unknown Completed Univers ity [facility] TDAP Unknown Completed [facility] Varicella Unknown Completed University (varivax)([facility] [place] [facility] pox) Branch Varicella Unknown Completed [facility] (varivax)([facility] [place] [facility] pox) Branch SARS-COV-2 COVID-19 Unknown Completed Unive rsity of PFIZER VACCINE [facility] SARS-COV-2 COVID-19 Unknown Completed Unive rsity of PFIZER VACCINE [facility] DTP Unknown Completed [facility] DTP Unknown Completed [facility] DTP Unknown Completed [facility] DTP Unknown Completed [facility] DTaP, Unspecified Unknown Completed Univers ity of Formulation [facility] Influenza Virus Unknown Completed Universit y of Vaccine Quad .5 mL [facility] 6+ [place] Branch (FLUZONE/FLULAVAL/FL UARIX) Hep B, Unspecified Unknown Completed Univer sity of Formulation [facility] HEPATITIS A Unknown Completed [facility] HEPATITIS A Unknown Completed [facility] Hep B, Unspecified Unknown Completed Univer sity of Formulation [facility] Hep B, Adol or Pedi Unknown Completed Unive rsity of Dosage [facility] Hep B, Adol or Pedi Unknown Completed Unive rsity of Dosage [facility] Hep B, Adol or Pedi Unknown Completed Unive rsity of Dosage [facility] Heamophilus Unknown Completed [facility] Influenza [facility] Unknown Completed [facility] Influenza [facility] Unknown Completed [facility] Influenza [facility] Unknown Completed [facility] Hib-HbOC Unknown Completed [facility] Hib-HbOC Unknown Completed [facility] Hib-HbOC Unknown Completed [facility] Hib-HbOC Unknown Completed [facility] HPV Unknown Completed [facility] HPV Unknown Completed [facility] HPV Unknown Completed [facility] Meningococcal Unknown Completed [facility] (groups A, C, Y and Branc h W-135) conjugate vaccine (MCV4P) MMR Unknown Completed [facility] MMR Unknown Completed [facility] Poliovirus, Live, Unknown Completed Univers ity of Oral, Trivalent [facility] Poliovirus, Live, Unknown Completed Univers ity of Oral, Trivalent [facility] Poliovirus, Live, Unknown Completed Univers ity of Oral, Trivalent [facility] Poliovirus, Live, Unknown Completed Univers ity of Oral, Trivalent [facility] Tetanus/Diptheria Unknown Completed Univers ity [facility] TDAP Unknown Completed [facility] Varicella Unknown Completed [facility] (varivax[facility] [place] [facility] Varicella Unknown Completed [facility] (varivax)([facility]icken [place] [facility] pox) Branch PFIZER COVID-19 MRNA Unknown Completed [facility] PFIZER COVID-19 MRNA Unknown [facility] PFIZER COVID-19 MRNA Unknown Com[facility] PFIZER COVID-19 MRNA Unknown Com[facility] PFIZER COVID-19 MRNA Unknown Com[facility] PFIZER COVID-19 MRNA Unknown Com[facility] Vital Signs Vital Name Observation Time Observation Value Comments Source Systolic blood 2023-07-01 116 mm[Hg] University of pressure 16:23:00 [facility] Diastolic blood 2023-07-01 76 mm[Hg] University o f pressure 16:23:00 [facility] Heart rate 2023-07-01 66 /min University of 16:23:00 [facility] Body temperature 2023-07-01 36.28 Alisha University of 16:23:00 [facility] Respiratory rate 2023-07-01 18 /min University of 16:23:00 [facility] Body height 2023-07-01 160 cm University of 16:23:00 [facility] Body weight 2023-07-01 70.852 kg University of 16:23:00 [facility] BMI 2023-07-01 27.67 kg/m2 University of 16:23:00 [facility] Oxygen saturation 2023-07-01 100 /min [facility] in Arterial blood 16:23:00 [facility] by Pulse oximetry Branch Systolic blood 2023-06-29 120 mm[Hg] University of pressure 18:40:00 [facility] Diastolic blood 2023-06-29 82 mm[Hg] University o f pressure 18:40:00 [facility] Heart rate 2023-06-29 81 /min University of 18:40:00 [facility] Body temperature 2023-06-29 36.5 Alisha University of 18:40:00 [facility] Respiratory rate 2023-06-29 18 /min University of 18:40:00 [facility] Body height 2023-06-29 160 cm University of 18:40:00 [facility] Body weight 2023-06-29 67.586 kg University of 18:40:00 [facility] BMI 2023-06-29 26.39 kg/m2 University of 18:40:00 [facility] Oxygen saturation 2023-06-29 100 /min University of in Arterial blood 18:40:00 [facility] shanice by Pulse oximetry Branch Systolic blood 2023-06-10 133 mm[Hg] University of pressure 15:38:00 [facility] Branch Diastolic blood 2023-06-10 78 mm[Hg] University o f pressure 15:38:00 [facility] Heart rate 2023-06-10 90 /min University of 15:38:00 [facility] Body height 2023-06-10 160 cm University of 15:38:00 [facility] Body weight 2023-06-10 69.627 kg University of 15:38:00 [facility] BMI 2023-06-10 27.19 kg/m2 University of 15:38:00 [facility] Oxygen saturation 2023-06-10 99 /min University of in Arterial blood 15:38:00 [facility] by Pulse oximetry Branch Systolic blood 2023-03-02 133 mm[Hg] University of pressure 17:25:00 [facility] Diastolic blood 2023-03-02 79 mm[Hg] University o f pressure 17:25:00 [facility] Heart rate 2023-03-02 86 /min University of 17:25:00 [facility] Body temperature 2023-03-02 36.67 Alisha University of 17:25:00 [facility] Respiratory rate 2023-03-02 16 /min University of 17:25:00 [facility] Body height 2023-03-02 160 cm University of 17:25:00 [facility] Body weight 2023-03-02 69.627 kg University of 17:25:00 [facility] BMI 2023-03-02 27.19 kg/m2 University of 17:25:00 [facility] Oxygen saturation 2023-03-02 97 /min University of in Arterial blood 17:25:00 [facility] shanice by Pulse oximetry Branch Systolic blood 2023-01-21 156 mm[Hg] University of pressure 23:13: [facility] Branch Diastolic blood 2023-01-21 100 mm[Hg] University o f pressure 23:13:33 [facility] Heart rate 2023-01-21 88 /min University of 23:13:33 [facility] Respiratory rate 2023-01-21 20 /min University of 23:13:33 [facility] Oxygen saturation 2023-01-21 100 /min [facility] of in Arterial blood 23:13:33 [place] [facility] by Pulse oximetry [facility] Body height 2023-01-21 160 cm University of 18:44:00 [facility] Body weight 2023-01-21 69.854 kg University of 18:44:00 [facility] Branch BMI 2023-01-21 27.28 kg/m2 University of 18:44:00 [facility] Body temperature 2023-01-21 37.11 Alisha University of 18:43:00 [facility] Branch Systolic blood 2023-01-15 121 mm[Hg] University of pressure 18:01:00 [facility] Branch Diastolic blood 2023-01-15 81 mm[Hg] University o f pressure 18:01:00 [facility] Heart rate 2023-01-15 83 /min University of 18:01:00 [facility] Respiratory rate 2023-01-15 16 /min University of 18:01:00 [facility] Oxygen saturation 2023-01-15 97 /min [facility] of in Arterial blood 18:01:00 [place] [facility] by Pulse oximetry [facility] Body temperature 2023-01-15 36.89 Alisha University of 14:55:07 [facility] Body weight 2023-01-15 68.04 kg University of 13:47:00 [facility] BMI 2023-01-15 26.57 kg/m2 University of 13:47:00 [facility] Branch Systolic blood 2023-01-15 131 mm[Hg] University of pressure 10:13:00 [facility] Branch Diastolic blood 2023-01-15 83 mm[Hg] University o f pressure 10:13:00 [facility] Heart rate 2023-01-15 104 /min University of 10:13:00 [facility] Body temperature 2023-01-15 36.94 Alisha University of 10:13:00 [facility] Branch Respiratory rate 2023-01-15 21 /min University of 10:13:00 [facility] Branch Body height 2023-01-15 160 cm University of 10:13:00 [facility] Body weight 2023-01-15 68.04 kg University of 10:13:00 [facility] BMI 2023-01-15 26.57 kg/m2 University of 10:13:00 [facility] Oxygen saturation 2023-01-15 100 /min University of in Arterial blood 10:13:00 [place] [facility] by Pulse oximetry [facility] Systolic blood 2022-12-31 128 mm[Hg] University of pressure 05:09:00 [facility] Branch Diastolic blood 2022-12-31 79 mm[Hg] University o f pressure 05:09:00 [facility] Heart rate 2022-12-31 71 /min University of 05:09:00 [facility] Body temperature 2022-12-31 36.78 Alisha University of 05:09:00 [facility] Respiratory rate 2022-12-31 16 /min University of 05:09:00 [facility] Body height 2022-12-31 160 cm University of 05:09:00 [facility] Body weight 2022-12-31 67.586 kg University of 05:09:00 [facility] BMI 2022-12-31 26.39 kg/m2 University of 05:09:00 [facility] Oxygen saturation 2022-12-31 100 /min University of in Arterial blood 05:09:00 [facility] shanice by Pulse oximetry Branch Systolic blood 2022-12-22 132 mm[Hg] University of pressure 13:18: [facility] Diastolic blood 2022-12-22 92 mm[Hg] University o f pressure 13:18:00 [facility] Heart rate 2022-12-22 78 /min University of 13:18:00 [facility] Respiratory rate 2022-12-22 18 /min University of 13:18:00 [facility] Body height 2022-12-22 160 cm University of 13:18:00 [facility] Body weight 2022-12-22 69.4 kg University of 13:18:00 [facility] BMI 2022-12-22 27.10 kg/m2 University of 13:18:00 [facility] Systolic blood 2022-12-19 102 mm[Hg] University of pressure 10:00:00 [facility] Branch Diastolic blood 2022-12-19 60 mm[Hg] University o f pressure 10:00:00 [facility] Heart rate 2022-12-19 85 /min University of 10:00:00 [facility] Branch Respiratory rate 2022-12-19 13 /min University of 10:00:00 [facility] Oxygen saturation 2022-12-19 96 /min [facility] in Arterial blood 10:00:00 [place] [facility] by Pulse oximetry [facility] Body temperature 2022-12-19 36.28 Alisha University of 07:30:00 [facility] Body height 2022-12-19 160 cm University of 07:30:00 [facility] Body weight 2022-12-19 67.132 kg University of 07:30: [facility] BMI 2022-12-19 26.22 kg/m2 University of 07:30:00 [facility] Systolic blood 2022-12-15 125 mm[Hg] University of pressure 15:48:00 [facility] Diastolic blood 2022-12-15 77 mm[Hg] University o f pressure 15:48:00 [facility] Heart rate 2022-12-15 75 /min University of 15:48:00 [facility] Body height 2022-12-15 160 cm University of 15:48:00 [facility] Body weight 2022-12-15 68.448 kg University of 15:48:00 [facility] BMI 2022-12-15 26.73 kg/m2 University of 15:48:00 [facility] Oxygen saturation 2022-12-15 98 /min [facility] in Arterial blood 15:48:00 [facility] by Pulse oximetry Branch Systolic blood 2022-12-14 132 mm[Hg] University of pressure 08:04:00 [facility] Diastolic blood 2022-12-14 87 mm[Hg] University o f pressure 08:04:00 [facility] Heart rate 2022-12-14 83 /min University of 08:04:00 [facility] Body temperature 2022-12-14 36.67 Alisha University of 08:04:00 [facility] Respiratory rate 2022-12-14 20 /min University of 08:04:00 [facility] Body height 2022-12-14 160 cm University of 08:04:00 [facility] Body weight 2022-12-14 67.132 kg University of 08:04:00 [facility] BMI 2022-12-14 26.22 kg/m2 University of 08:04:00 [facility] Oxygen saturation 2022-12-14 97 /min [facility] of in Arterial blood 08:04:00 [facility] sh[facility]ice by Pulse oximetry Branch Systolic blood 2022-11-03 143 mm[Hg] University of pressure 17:45:00 [facility] Diastolic blood 2022-11-03 89 mm[Hg] University o f pressure 17:45:00 [facility] Heart rate 2022-11-03 89 /min University of 17:45:00 [facility] Respiratory rate 2022-11-03 16 /min University of 17:45:00 [facility] Oxygen saturation 2022-11-03 99 /min [facility] of in Arterial blood 17:45:00 [facility] by Pulse oximetry Branch Body temperature 2022-11-03 36.61 Alisha University of 14:13:00 [facility] Body height 2022-11-03 160 cm University of 14:13:00 [facility] Body weight 2022-11-03 68.04 kg University of 14:13:00 [facility] BMI 2022-11-03 26.57 kg/m2 University of 14:13:00 [facility] Systolic blood 2022-10-28 115 mm[Hg] University of pressure 21:02:00 [facility] Diastolic blood 2022-10-28 69 mm[Hg] University o f pressure 21:02:00 [facility] Heart rate 2022-10-28 93 /min University of 21:02:00 [facility] Body temperature 2022-10-28 36.89 Alisha University of 21:02:00 [facility] Body height 2022-10-28 160 cm University of 21:02:00 [facility] Body weight 2022-10-28 70.308 kg University of 21:02:00 [facility] BMI 2022-10-28 27.46 kg/m2 University of 21:02:00 [facility] Oxygen saturation 2022-10-28 100 /min [facility] in Arterial blood 21:02:00 [facility] by Pulse oximetry Branch Systolic blood 2022-10-13 133 mm[Hg] University of pressure 07:58:00 [facility] Diastolic blood 2022-10-13 72 mm[Hg] University o f pressure 07:58:00 [facility] Heart rate 2022-10-13 109 /min University of 07:58:00 [facility] Body temperature 2022-10-13 36.78 Alisha University of 07:58:00 [facility] Respiratory rate 2022-10-13 16 /min University of 07:58:00 [facility] Body weight 2022-10-13 67.132 kg University of 07:58:00 [facility] BMI 2022-10-13 26.22 kg/m2 University of 07:58:00 [facility] Oxygen saturation 2022-10-13 99 /min [facility] of in Arterial blood 07:58:00 [facility] by Pulse oximetry Branch Systolic blood 2022-10-10 120 mm[Hg] [facility] of pressure 00:44:00 [facility] Diastolic blood 2022-10-10 82 mm[Hg] University o f pressure 00:44:00 [facility] Heart rate 2022-10-10 110 /min University of 00:44:00 [facility] Body temperature 2022-10-10 36.33 Alisha University of 00:44:00 [facility] Respiratory rate 2022-10-10 18 /min University of 00:44:00 [facility] Body height 2022-10-10 160 cm University of 00:44:00 [facility] Body weight 2022-10-10 67.132 kg University of 00:44:00 [facility] BMI 2022-10-10 26.22 kg/m2 University of 00:44:00 [facility] Oxygen saturation 2022-10-10 99 /min [facility] of in Arterial blood 00:44:00 [facility] by Pulse oximetry Branch Systolic blood 2022-09-10 165 mm[Hg] [facility] of pressure 00:13:00 [facility] Diastolic blood 2022-09-10 99 mm[Hg] University o f pressure 00:13:00 [facility] Heart rate 2022-09-10 125 /min University of 00:13:00 [facility] Body temperature 2022-09-10 36.61 Alisha University of 00:13:00 [facility] Respiratory rate 2022-09-10 20 /min University of 00:13:00 [facility] Body weight 2022-09-10 65.772 kg University of 00:13:00 [facility] BMI 2022-09-10 25.69 kg/m2 University of 00:13:00 [facility] Oxygen saturation 2022-09-10 99 /min [facility] of in Arterial blood 00:13:00 [facility] by Pulse oximetry Branch Systolic blood 2022-08-18 134 mm[Hg] University of pressure 22:36:00 [facility] Diastolic blood 2022-08-18 86 mm[Hg] University o f pressure 22:36:00 [facility] Heart rate 2022-08-18 100 /min University of 22:36:00 [facility] Body temperature 2022-08-18 37.11 Alisha University of 22:36:00 [facility] Respiratory rate 2022-08-18 20 /min University 22:36:00 [facility] Body height 2022-08-18 160 cm [facility] 22:36:00 [facility] Body weight 2022-08-18 67.132 kg [facility] 22:36:00 [facility] BMI 2022-08-18 26.22 kg/m2 [facility] 22:36:00 [facility] Oxygen saturation 2022-08-18 100 /min [facility] in Arterial blood 22:36:00 [facility] by Pulse oximetry [place] Systolic blood 2022-01-20 123 mm[Hg] [facility] pressure 18:11:00 [facility] Diastolic blood 2022-01-20 85 mm[Hg] [facility] pressure 18:11:00 Hospital Heart rate 2022-01-20 88 /min [facility] 18:11:00 [facility] Body temperature 2022-01-20 36.28 Alisha [facility] 18:11:00 Hospital Respiratory rate 2022-01-20 20 /min [facility] 18:11:00 Hospital Body height 2022-01-20 160 cm [facility] 18:11:00 [facility] Body weight 2022-01-20 66.225 kg [facility] 18:11:00 Hospital BMI 2022-01-20 25.86 kg/m2 [facility] 18:11:00 Hospital Oxygen saturation 2022-01-20 99 /min [facility] in Arterial blood 18:11:00 Hospital by Pulse [...] Diastolic blood 2020-02-14 72 mm[Hg] [facility] 09:21:00 Position: Sitting Body height 2020-02-14 67 [in_us] [facility] 09:21:00 Weight 2020-02-14 161 [lb_av] [facility] 09:21:00 Body mass index 2020-02-14 25.22 kg/m2 [facility] (BMI) [Ratio] 09:21:00 Body temperature 2020-02-14 95.3 [degF] [facility] 09:21:00 Heart Rate 2020-02-14 87 /min [facility] 09:21:00 Systolic blood 2020-01-31 108 mm[Hg] [facility] 08:57:00 Position: Sitting Diastolic blood 2020-01-31 76 mm[Hg] [facility] 08:57:00 Position: Sitting Body [...] Calculated 16:12:00 Heart Rate 2018-09-07 109 /min [facility] 16:12:00 Procedures Procedure Date / Time Performing Clinician Source Performed CT ABDOMEN PELVIS W 2023-01-21 21:07:22 Joe Abad [facility] CONTRAST [facility] Branch POCT TEST 2023-01-21 19:34:00 Gutierrez Mon[facility] LIPASE 2023-01-21 19:32:00 Gutierrez Moncada [facility] TROPONIN I 2023-01-21 19:32:[address] [facility] COMP. METABOLIC PANEL 2023-01-21 19:32:00 Gutierrez Moncada [facility] ([id number]) Medical Branch CBC WITH DIFF 2023-01-21 19:32:00 Gutierrez Moncada [facility] URINALYSIS 2023-01-21 19:32:00 Gutierrez Moncada [facility] CONSENT/REFUSAL FOR 2023-01-21 18:36:13 Doctor Unassigned, No [facility] [place] [facility] Name Medical Branch LIPASE 2023-01-15 14:47:[address] [facility] COMP. METABOLIC PANEL 2023-01-15 14:47:00 Brant Lal [facility] ([id number]) Medical Branch CBC WITH DIFF 2023-01-15 14:47:[address] [facility] CONSENT/REFUSAL FOR 2023-01-15 13:41:26 Doctor Unassigned, No Un [facility] [place] [facility] Name Medical Branch CONSENT/REFUSAL FOR 2023-01-15 10:06:16 Doctor Unassigned, No [facility] [place] [facility] Name Medical Branch EXTERNAL PROVIDER 2023-01-07 05:01:00 Doctor Unassigned, No Univ [facility] RECORDS Name Medical Branch EXTERNAL PROVIDER 2023-01-04 05:01:00 Doctor Unassigned, No [facility] [place] REC[facility] Name Medical Branch CONSENT/REFUSAL FOR 2022-12-31 05:04:15 Doctor Unassigned, No [facility] [place] [facility] Name Medical Branch CT ANGIOGRAPHY 2022-12-30 17:15:00 Amrit Ma [facility] CORONARIES WITHOUT Medical Bran h CARDIAC CALCIUM SCORING HB CREATININE 2022-12-30 16:24:00 Amrit Ma [facility] SERUM/BLOOD FOR IMAGING Medical Branch CONSENT/REFUSAL FOR 2022-12-30 15:17:01 Doctor Unassigned, No [facility] [place] [facility] Name Medical Branch EXTERNAL PROVIDER 2022-12-29 05:01:00 Doctor Unassigned, No [facility] RECORDS Name Medical Branch AUTHORIZATION TO RELEASE 2022-12-21 05:01:00 Doctor Unassigned, No [facility] PHI TO [facility] Name Medical Branch CT ANGIOGRAM CHEST 2022-12-19 09:28:16 Miladys Medina [facility] TROPONIN I 2022-12-19 08:40:00 Miladys Medina [facility] D-DIMER 2022-12-19 08:40:00 Miladys Medina [facility] CONSENT/REFUSAL FOR 2022-12-19 07:30:10 Doctor Unassigned, No [facility] [place] [facility] Name [facility] D-DIMER 2022-12-14 10:47:00 Miladys Medina [facility] TROPONIN I 2022-12-14 10:16:00 Miladys Medina [facility] LIPASE 2022-12-14 08:31:00 Miladys Medina [facility] TROPONIN I 2022-12-14 08:31:00 Miladys Medina [facility] COMP. METABOLIC PANEL 2022-12-14 08:31:00 Miladys Medina [facility] ([id number]) [facility] CBC WITH DIFF 2022-12-14 08:31:00 Miladys Medina [facility] THYROID STIMULATING 2022-12-14 08:31:00 Amrit Ma [facility] HORMONE [facility] NOTICE OF PRIVACY 2022-12-14 07:50:02 Doctor Unassigned, No [facility] PRACTICES Name Medical Branch CONSENT/REFUSAL FOR 2022-12-14 07:49:31 Doctor Unassigned, No [facility] [place] [facility] Name Medical Branch URINALYSIS 2022-11-03 15:27:[address] [facility] URINE DRUG (IMMUNOASSAY) 2022-11-03 15:27:00 Gaurang Dotson [facility] COMPREHENSIVE DRUG Medical Bra [facility] SCREEN W/O REFLEX TEST, SERUM 2022-11-03 14:38:00 Gaurang Dotson [facility] COMP. METABOLIC PANEL 2022-11-03 14:38:00 Gaurang Dotson [facility] ([id number]) Medical [place] CBC WITH DIFF 2022-11-03 14:38:[address] [facility] D-DIMER 2022-11-03 14:38:[address] [facility] CONSENT/REFUSAL FOR 2022-11-03 14:04:36 Doctor Unassigned, No Un [facility] [place] [facility] Name Medical Branch CONSENT/REFUSAL FOR 2022-10-28 20:34:23 Doctor Unassigned, No [facility] [place] [facility] Name Medical Branch CONSENT/REFUSAL FOR 2022-10-13 07:49:25 Doctor Unassigned, No Un [facility] [place] [facility] Name Medical Branch CONSENT/REFUSAL FOR 2022-10-10 00:16:57 Doctor Unassigned, No Un [facility] [place] [facility] Name Medical Branch MRI LUMBAR SPINE WO 2022-10-07 00:35:00 Jorge Luis Mcdonnell [facility] CONTRAST MRI CERVICAL SPINE WO 2022-10-07 00:22:00 Jorge Luis Mcdonnell [facility] CONTRAST CONSENT/REFUSAL FOR 2022-09-10 00:07:30 Doctor Unassigned, No Un [facility] [place] [facility] Name Medical Branch CONSENT/REFUSAL FOR 2022-08-18 22:20:24 Doctor Unassigned, No Un [facility] [place] [facility] Name Medical Branch CT SPINE EXTERNAL STUDY 2021-11-28 20:02:[address] [facility] [address] SPINE EXTERNAL STUDY 2021-11-28 19:57:[address] [facility] [address] SPINE EXTERNAL STUDY 2021-11-28 19:52:18 [facility] REFERRAL- 2021-11-21 05:01:00 Doctor Unassigned, No [facility] REQUEST/RESPONSE Name Medical Branch MRI SPINE EXTERNAL STUDY 2021-10-09 18:17:21 [facility] [QL] CBC (INCLUDES 2020-02-16 00:00:00 [facility] DIFF/PLT) EMB 2020-02-14 00:00:00 [facility] Mell Villanueva - Mohamud VPIII 2020-02-14 00:00:00 [facility] (BV Panel) . [facility] - GC/Chlamydia 2020-02-14 00:00:00 [facility] [QL] CBC (INCLUDES 2020-02-14 00:00:00 [facility] DIFF/PLT) [QL] AMYLASE 2020-02-14 00:00:00 [facility] [QL] LIPASE 2020-02-14 00:00:00 [facility] Physician austin LÓPEZath - Affirm VPIII 2020-01-31 00:00:00 [facility] (BV Panel) . [facility] - GC/Chlamydia 2020-01-31 00:00:00 [facility] [QL] CBC (INCLUDES 2020-01-31 00:00:00 [facility] DIFF/PLT) [QLH] CULTURE, URINE, 2019-06-28 00:00:00 [facility] ROUTINE . [facility] - PAP w/reflex 2019-06-28 00:00:00 [facility] HPV US Pelvic with 2019-06-28 00:00:00 [facility] Transvaginal and Pelvic Doppler [id number] History of Dental [facility] surgery History of [facility] section low transverse Plan of Care Planned Activity Planned Date Details Comments Source Future Scheduled 2023-07-01 Pneumococcal Vaccine: [facility] Test 21:11:54 Pediatrics (0 to 5 Years) and At-Risk Patients (6 to 64 Years) (1 - PCV) [code = Pneumococcal Vaccine: Pediatrics (0 to 5 Years) and At-Risk Patients (6 to 64 Years) (1 - PCV)] Future Scheduled 2023-07-01 Hepatitis C screening [facility] Test 21:11:54 (procedure) [code = 722362929] Future Scheduled 2023-07-01 Screening for [facility] Test 21:11:54 malignant neoplasm of cervix (procedure) [code = 000121954] Future Scheduled 2023-07-01 COVID-19 VACCINE (3 - [facility] Test 21:11:54 season) [code = COVID-19 VACCINE ( season)] Future Scheduled 2023-07-01 INFLUENZA VACCINE (#1) [facility] Test 21:11:54 [code = INFLUENZA VACCINE (#1)] Future Scheduled 2023-06-18 Pneumococcal Vaccine: [facility] Test 03:36:13 Pediatrics (0 to 5 Years) and At-Risk Patients (6 to 64 Years) (1 - PCV) [code = Pneumococcal Vaccine: Pediatrics (0 to 5 Years) and At-Risk Patients (6 to 64 Years) (1 - PCV)] Future Scheduled 2023-06-18 Hepatitis C screening [facility] Test 03:36:13 (procedure) [code = 875072931] Future Scheduled 2023-06-18 Screening for [facility] Test 03:36:13 malignant neoplasm of cervix (procedure) [code = 133889424] Future Scheduled 2023-06-18 COVID-19 VACCINE (3 - [facility] Test 03:36:13 season) [code = COVID-19 VACCINE ( season)] Future Scheduled 2023-06-18 INFLUENZA VACCINE (#1) [facility] Test 03:36:13 [code = INFLUENZA VACCINE (#1)] Future Scheduled 2023-06-18 RSV VACCINES > 60 YR Met [facility] Test 03:36:13 (1 - 1-dose 60+ series) [code = RSV VACCINES > 60 YR (1 - 1-dose 60+ series)] Future Scheduled 2023-06-12 Pneumococcal Vaccine: [facility] Test 08:20:18 Pediatrics (0 to 5 Years) and At-Risk Patients (6 to 64 Years) (1 - PCV) [code = Pneumococcal Vaccine: Pediatrics (0 to 5 Years) and At-Risk Patients (6 to 64 Years) (1 - PCV)] Future Scheduled 2023-06-12 [facility] Test 08:20:18 (procedure) [code = 825488584] Future Scheduled 2023-06-12 [facility] 08:20:18 malignant neoplasm of cervix (procedure) [code = 970043829] Future Scheduled 2023-06-12 COVID-19 VACCINE ([facility] - [facility] Test 08:20:18 Pfizer series) [code = COVID-19 VACCINE (3 - Pfizer series)] Future Scheduled 2023-06-12 [facility] (#[facility]) [facility] 08:20:18 [code = INFLUENZA VACCINE (#1)] Future Scheduled 2023-02-19 Pneumococcal Vaccine: [facility] Test 07:49:13 Pediatrics (0 to 5 Years) and At-Risk Patients (6 to 64 Years) (1 - PCV) [code = Pneumococcal Vaccine: Pediatrics (0 to 5 Years) and At-Risk Patients (6 to 64 Years) (1 - PCV)] Future Scheduled 2023-02-19 [facility] Test 07:49:13 (procedure) [code = 929599669] Future Scheduled 2023-02-19 [facility] Test 07:49:13 malignant neoplasm of cervix (procedure) [code = 552750587] Future Scheduled 2023-02-19 COVID-19 VACCINE (3 - [facility] Test 07:49:13 Pfizer series) [code = COVID-19 VACCINE (3 - Pfizer series)] Future Scheduled 2023-02-19 INFLUENZA VACCINE [facility] Test 07:49:13 [code = INFLUENZA VACCINE] Future Scheduled 2023-02-19 Pneumococcal Vaccine: [facility] Test 07:49:13 Pediatrics (0 to 5 Years) and At-Risk Patients (6 to 64 Years) (1 - PCV) [code = Pneumococcal Vaccine: Pediatrics (0 to 5 Years) and At-Risk Patients (6 to 64 Years) (1 - PCV)] Future Scheduled 2023-02-19 [facility] Test 07:49:13 (procedure) [code = 528394638] Future Scheduled 2023-02-19 [facility] Test 07:49:13 malignant neoplasm of cervix (procedure) [code = 533726342] Future Scheduled 2023-02-19 COVID-19 VACCINE (3 - [facility] Test 07:49:13 Pfizer series) [code = COVID-19 VACCINE (3 - Pfizer series)] Future Scheduled 2023-02-19 [facility]ZA VACCINE [facility] Test 07:49:13 [code = INFLUENZA VACCINE] Future Scheduled 2023-02-19 Pneumococcal Vaccine: [facility] Test 07:49:13 Pediatrics (0 to 5 Years) and At-Risk Patients (6 to 64 Years) (1 - PCV) [code = Pneumococcal Vaccine: Pediatrics (0 to 5 Years) and At-Risk Patients (6 to 64 Years) (1 - PCV)] Future Scheduled 2023-02-19 Hepatitis C screening [facility] Test 07:49:13 (procedure) [code = 788600036] Future Scheduled 2023-02-19 [facility] Test 07:49:13 malignant neoplasm of cervix (procedure) [code = 566564119] Future Scheduled 2023-02-19 COVID-19 VACCINE (3 - [facility] Test 07:49:13 Pfizer series) [code = COVID-19 VACCINE (3 - Pfizer series)] Future Scheduled 2023-02-19 [facility]ZA VACCINE [facility] 07:49:13 [code = INFLUENZA VACCINE] Future Scheduled 2023-02-19 Pneumococcal Vaccine: [facility] Test 07:49:13 Pediatrics (0 to 5 Years) and At-Risk Patients (6 to 64 Years) (1 - PCV) [code = Pneumococcal Vaccine: Pediatrics (0 to 5 Years) and At-Risk Patients (6 to 64 Years) (1 - PCV)] Future Scheduled 2023-02-19 [facility] Test 07:49:13 (procedure) [code = 973961832] Future Scheduled 2023-02-19 [facility] Test 07:49:13 malignant neoplasm of cervix (procedure) [code = 175596594] Future Scheduled 2023-02-19 COVID-19 VACCINE (3 - [facility] Test 07:49:13 Pfizer series) [code = COVID-19 VACCINE (3 - Pfizer series)] Future Scheduled 2023-02-19 INFLUENZA VACCINE Method [facility] Test 07:49:13 [code = INFLUENZA VACCINE] Future Scheduled 2022-12-30 Pneumococcal Vaccine: [facility] Test 10:15:19 Pediatrics (0 to 5 Years) and At-Risk Patients (6 to 64 Years) (1 - PCV) [code = Pneumococcal Vaccine: Pediatrics (0 to 5 Years) and At-Risk Patients (6 to 64 Years) (1 - PCV)] Future Scheduled 2022-12-30 Hepatitis C screening [facility] Test 10:15:19 (procedure) [code = 779712669] Future Scheduled 2022-12-30 [facility] 10:15:19 malignant neoplasm of cervix (procedure) [code = 679855712] Future Scheduled 2022-12-30 COVID-19 VACCINE (3 - [facility] Test 10:15:19 Booster for Pfizer series) [code = COVID-19 VACCINE (3 - Booster for Pfizer series)] Future Scheduled 2022-12-30 INFLUENZA VACCINE Method [facility] Test 10:15:19 [code = INFLUENZA VACCINE] Future Scheduled 2022-12-30 Pneumococcal Vaccine: [facility] Test 10:15:19 Pediatrics (0 to 5 Years) and At-Risk Patients (6 to 64 Years) (1 - PCV) [code = Pneumococcal Vaccine: Pediatrics (0 to 5 Years) and At-Risk Patients (6 to 64 Years) (1 - PCV)] Future Scheduled 2022-12-30 Hepatitis C screening [facility] Test 10:15:19 (procedure) [code = 837361392] Future Scheduled 2022-12-30 [facility] 10:15:19 malignant neoplasm of cervix (procedure) [code = 856871492] Future Scheduled 2022-12-30 COVID-19 VACCINE (3 - [facility] Test 10:15:19 Booster for Pfizer series) [code = COVID-19 VACCINE (3 - Booster for Pfizer series)] Future Scheduled 2022-12-30 INFLUENZA VACCINE [facility] Test 10:15:19 [code = INFLUENZA VACCINE] Future Scheduled 2022-12-30 Pneumococcal Vaccine: [facility] Test 10:15:19 Pediatrics (0 to 5 Years) and At-Risk Patients (6 to 64 Years) (1 - PCV) [code = Pneumococcal Vaccine: Pediatrics (0 to 5 Years) and At-Risk Patients (6 to 64 Years) (1 - PCV)] Future Scheduled 2022-12-30 [facility] screening [facility] Test 10:15:19 (procedure) [code = 092418362] Future Scheduled 2022-12-30 [facility] 10:15:19 malignant neoplasm of cervix (procedure) [code = 095896665] Future Scheduled 2022-12-30 COVID-19 VACCINE ([facility] - [facility] Test 10:15:19 Booster for Pfizer series) [code = COVID-19 VACCINE (3 - Booster for Pfizer series)] Future Scheduled 2022-12-30 [facility]ENZA VACCINE [facility] 10:15:19 [code = INFLUENZA VACCINE] Future Scheduled 2022-08-02 Pneumococcal Vaccine: [facility] Test 11:23:36 Pediatrics (0 to 5 Years) and At-Risk Patients (6 to 64 Years) (1 - PCV) [code = Pneumococcal Vaccine: Pediatrics (0 to 5 Years) and At-Risk Patients (6 to 64 Years) (1 - PCV)] Future Scheduled 2022-08-02 [facility] Test 11:23:36 (procedure) [code = 000006896] Future Scheduled 2022-08-02 [facility] Test 11:23:36 malignant neoplasm of cervix (procedure) [code = 152499710] Future Scheduled 2022-08-02 COVID-19 VACCINE ([facility] - [facility] Test 11:23:36 Booster for Pfizer series) [code = COVID-19 VACCINE (3 - Booster for Pfizer series)] Future Scheduled 2022-08-02 [facility]UENZA VACCINE [facility] 11:23:36 [code = INFLUENZA VACCINE] Future Scheduled 2022-07-24 Pneumococcal Vaccine: [facility] Test 21:51:51 Pediatrics (0 to 5 Years) and At-Risk Patients (6 to 64 Years) (1 - PCV) [code = Pneumococcal Vaccine: Pediatrics (0 to 5 Years) and At-Risk Patients (6 to 64 Years) (1 - PCV)] Future Scheduled 2022-07-24 Hep[facility] C screening [facility] Test 21:51:51 (procedure) [code = 983408223] Future Scheduled 2022-07-24 [facility] Test 21:51:51 malignant neoplasm of cervix (procedure) [code = 944916016] Future Scheduled 2022-07-24 COVID-19 VACCINE (3 - [facility] Test 21:51:51 Booster for Pfizer series) [code = COVID-19 VACCINE (3 - Booster for Pfizer series)] Future Scheduled 2022-07-24 INFLUENZA VACCINE Method [facility] Test 21:51:51 [code = INFLUENZA VACCINE] Future Scheduled 2022-07-15 Pneumococcal Vaccine: [facility] Test 15:03:03 Pediatrics (0 to 5 Years) and At-Risk Patients (6 to 64 Years) (1 - PCV) [code = Pneumococcal Vaccine: Pediatrics (0 to 5 Years) and At-Risk Patients (6 to 64 Years) (1 - PCV)] Future Scheduled 2022-07-15 Hepatitis C screening [facility] Test 15:03:03 (procedure) [code = 285513083] Future Scheduled 2022-07-15 [facility] Test 15:03:03 malignant neoplasm of cervix (procedure) [code = 420698735] Future Scheduled 2022-07-15 COVID-19 VACCINE (3 - [facility] Test 15:03:03 Booster for Pfizer series) [code = COVID-19 VACCINE (3 - Booster for Pfizer series)] Future Scheduled 2022-07-15 INFLUENZA VACCINE Method [facility] Test 15:03:03 [code = INFLUENZA VACCINE] Future Scheduled 2022 Pneumococcal Vaccine: [facility] Test 09:54:03 Pediatrics (0 to 5 Years) and At-Risk Patients (6 to 64 Years) (1 - PCV) [code = Pneumococcal Vaccine: Pediatrics (0 to 5 Years) and At-Risk Patients (6 to 64 Years) (1 - PCV)] Future Scheduled 2022 Hepatitis C screening [facility] Test 09:54:03 (procedure) [code = 525533211] Future Scheduled 2022 [facility] Test 09:54:03 malignant neoplasm of cervix (procedure) [code = 267309489] Future Scheduled 2022 COVID-19 VACCINE (3 - [facility] Test 09:54:03 Booster for Pfizer series) [code = COVID-19 VACCINE (3 - Booster for Pfizer series)] Future Scheduled 2022 [facility]ZA VACCINE [facility] Test 09:54:03 [code = INFLUENZA VACCINE] Encounters Start End Encounter Admission Attending Care Care Encounter Source Date/Time Date/Time Type Type Clinicians Facility Department ID 2021-07-06 Emergency [facility] [id number] Univers 13:36:32 ity of [facility] 2021-07-04 Emergency [facility] [id number] Univers 11:22:30 ity [facility] 2021-07-04 Emergency [facility] [id number] Univers 10:48:55 ity [facility] 2021-01-09 Inpatient [facility] MALISSA [id number] [facility] 10:52:00 [id number] [facility] 2020-12-27 Inpatient [facility] MALISSA [id number] [facility] 20:29:00 65 [facility] 2020-12-26 Inpatient CLAUDETTE Escobar, [facility] ENDO [id number] [facility] 10:00:00 Rik 01 [facility] 2020-12-22 Inpatient [facility] [id number] [facility] 23:08:15 49 [facility] 2020-08-23 Inpatient [facility] MALISSA [id number] [facility] 09:10:00 26 [facility] 2020-08-05 Inpatient [facility] MALISSA [id number] [facility] 20:55:00 [id number] [facility] 2020-02-20 Outpatient MIRYAM, [facility] [id number] [facility] 10:04:01 [facility] 2023-07-16 2023-07-16 Outpatient MARINA WISDOM [facility] [id number] Univers 14:00:00 14:00:00 MARINA BERG [facility] 2023-07-02 2023-07-02 Telephone lGadis [facility] [id number] Univers 00:00:00 00:00:00 [employer] [id number] it y of [place] 4.2.7.2.686 Zay as BLANCA?BLEA [id number] [address] MEDICAL OFFICE BUILDING 2023-07-01 2023-07-01 Outpatient Anton GARCIA [facility] [id number] Univers 11:00:00 11:39:48 DEVANG calixto [facility] 2023-07-01 2023-07-01 Urgent Devang Garcia [facility] ..840.11 [id number] Univers 11:00:00 11:39:48 Care Unknown, Attending HEALTH [id number] ity of [place] 4.2.7.2.686 Zay as BLANCA?BLEA [id number] [facility] [address] MEDICAL OFFICE [facility] 2023-06-29 2023-06-29 Outpatient R JOSE [facility] [id number] Univers 13:20:00 14:35:47 DEVANG calixto [facility] 2023-06-29 2023-06-29 Urgent Jose [facility] ..840.11 [id number] [facility] 13:20:00 14:35:47 Care Unknown, Attending HEALTH [id number] [facility] 4.2.7.2.686 Zay as BLANCA?BLEA [id number] [address] OFFICE [facility] 2023-06-29 2023-06-29 Outpatient ITALIA Strickland PABLITO [id number] [address] [facility] 12:00:00 12:00:[address] 2023-06-10 2023-06-10 Outpatient Anton MIKOPACO MarksINE [facility] [id number] [facility] 10:40:00 11:18:23 MARINA BERG [facility] 2023-06-10 2023-06-10 [facility] [id number] [facility] 10:40:00 11:18:23 Visit [facility] [id number] ity [facility] 4.2.7.2.686 Zay as BLANCA?BLEA [id number] [facility] [address] [place] MEDICAL OFFICE [facility] 2023-06-10 2023-06-10 Patient Ruth [facility] [id number] Univers 00:00:00 00:00:00 Outreach Mindy GUERRERO 350.1.13.10 it[facility] [place] [id number] Hi dical NAL 044 [facility] 2023-06-08 2023-06-08 Outpatient R GRACIELA [facility] [id number] Univers 11:30:00 11:30:00 KAYLEY rajmisty of [facility] 2023-05-27 2023-05-27 Telephone [facility] [id number] Univers 00:00:00 00:00:00 Amrit GUERRERO 350.1.13.10 ity [facility] 4.2.7.2.[place] [id number] Hi dical NAL 059 [facility] 2023-05-25 2023-05-25 Telephone [facility] [id number] Univers 00:00:00 00:00:00 Amrit GUERRERO 350.1.13.10 it[place] of [place] [id number] Hi dicmi NAL 059 [facility] 2023-05-24 2023-05-24 Telephone [facility] [id number] Univers 00:00:00 00:00:00 Amrit GUERRERO 350.1.13.10 ity [facility] 4.2.7.2.[place] [id number] Hi dicmi EDILBERTO 059 [facility] 2023-05-19 2023-05-19 Telephone [address] [facility] [id number] [id number] Univers 00:00:00 00:00:00 Kayley GANDARA 350.1.13.10 it y of [place] [id number] [place] [address] [address] 2023-03-02 2023-03-02 Urgent Tami Alas [facility] 1.2.840.114 [id number] Univers 12:00:00 12:20:00 Care Unknown, Attending HEALTH [id number] ity [facility] 4.2.7.2.686 Zay as BLANCA?BLEA [id number] [address] MEDICAL OFFICE [facility] 2023-03-02 2023-03-02 Outpatient R LUIS [facility] [id number] Univers 12:00:00 12:00:00 TAMI [facility] 2023-03-02 2023-03-02 [facility] 1.2.840.114 [id number] Univers 00:00:00 00:00:00 (Out) Tami [facility] 350.1.13.10 it y of [place] 4.2.7.2.686 Zay as BLANCA?BLEA [id number] [address] MEDICAL OFFICE [facility] 2023-01-21 2023-01-21 Emergency X POLLO [facility] ERT [id number] Univers 13:46:00 18:49:00 JOE [facility] 2023-01-21 2023-01-21 Emergency [facility] [id number] Univers 13:46:00 18:49:00 [facility] 350.1.13.10 it y of [place] 4.2.7.2.686 [facility] [id number] [address] ([facility]) 2023-01-21 2023-01-21 Outpatient R KRISTY [facility] [id number] Univers 13:30:00 13:30:00 SMITHA [facility] 2023-01-15 2023-01-15 Emergency X [facility] ERT [id number] Univers 08:50:00 13:10:00 BRANT [facility] 2023-01-15 2023-01-15 Emergency [facility] [id number] Univers 08:50:00 13:10:00 Brant S YOLANDA 350.1.13.10 i ty of [place] 4.2.7.2.686 [facility] [id number] [address] 2023-01-15 2023-01-15 Outpatient R KENZIE BADILLO [facility] [facility] [id number] Univers 09:00:00 09:00:00 [facility] 2023-01-15 2023-01-15 Emergency X [facility] ERT [id number] Univers 05:24:00 06:28:00 MILADYS y [facility] 2023-01-15 2023-01-15 Emergency [facility] 1.2.411.801 [id number] [id number] Univers 05:24:00 06:28:00 Miladys GUERRERO 350.1.13.10 ity of [place] 4.2.7.2.686 [facility] [id number] [facility] 084 Branch 2023-01-12 2023-01-12 Outpatient [facility] [id number] Univers 10:30:00 10:30:00 [facility] 2023-01-08 2023-01-08 Outpatient R [facility] [id number] Univers 08:00:00 08:00:00 SENDIL [facility] 2023-01-07 2023-01-07 Orders Doctor SUDHA 1.2.840.114 [id number] Univers 00:00:00 00:00:00 Only Unassigned, ALEM 350.1.13.10 ity of [place] [facility] 4.2.7.2.686 Zay as [phone] [facility] 009 Branch 2023-01-04 2023-01-04 Orders Doctor SUDHA 1.2.840.114 [id number] Univers 00:00:00 00:00:00 Only Unassigned, ALEM 350.1.13.10 ity of [place] HOSPITAL 4.2.7.2.686 Zay as [phone] [facility] 009 Branch 2023-01-04 2023-01-04 Telephone [facility] 1.2.561.957 6907 78970 Univers 00:00:00 00:00:00 [facility] 350.1.13.10 it y of [place] CANCER 4.2.7.2.686 [facility] - [phone] [facility] 419 Branch 2023-01-01 2023-01-01 Telephone [facility] 1.2.840.11 4 [id number] Univers 00:00:00 00:00:00 Jorge GANDARA 350.1.13.10 it y [place] [id number] [facility] 134 Branch 2022-12-31 2022-12-31 Emergency X Jasmin SILVER [facility] ERT [id number] Univers 00:13:00 01:07:00 ity of [facility] 2022-12-31 2022-12-31 Emergency Jg Jasmin [facility] 1.2.840.114 10 [id number] Univers 00:13:00 01:07:00 Filomena GUERRERO 350.1.13.10 i ty [place] [phone] [facility] 084 Branch 2022-12-31 2022-12-31 Telephone [facility] 1.2.676.844 [id number] [id number] Univers 00:00:00 00:00:00 Sendil Ismael GUERRERO 350.1.13.10 it[place] of [place] [phone] Hi dical NAL 059 [facility] 2022-12-31 2022-12-31 Patient Doctor SUDHA 1.2.840.114 [id number] 006 Univers 00:00:00 00:00:00 Secure Msg Unassigned, ALEM 350.1.13.10 ity of [place] [facility] 4.2.7.2.686 Zay as [phone] [facility] 019 Branch 2022-12-30 2022-12-30 Hospital [facility] 1.2.840.114 [id number] Univers 10:38:24 23:59:00 Encounter Sendil Ismael GUERRERO 350.1.13.10 ity of [place].2.[place] [id number] [facility] 801 Branch 2022-12-30 2022-12-30 Outpatient R FRANCESCA [facility] [id number] Univers 10:38:24 23:59:00 SENDIL ity [facility] 2022-12-30 2022-12-30 Emergency X ELISA [facility] ERT [id number] Univers 10:21:00 10:33:00 AWILDA ity [facility] 2022-12-30 2022-12-30 Emergency [facility] 1.2.840.114 10 [id number] Univers 10:21:00 10:33:00 Awilda Cookie GUERRERO 350.1.13.10 it[facility] 4.2.7.2.686 [facility] [phone] [facility] 084 Branch 2022-12-30 2022-12-30 Telephone GEORGIE Chandra [address] 1.2.840.11 4 [id number] Univers 00:00:00 00:00:00 Jorge GANDARA 350.1.13.10 it y of WOMEN'S 4.2.7.2.686 [facility] [id number] [facility] CLINIC 134 Branch 2022-12-29 2022-12-29 Outpatient R JORGE CHANDRA [facility] B [id number] Univers 13:30:00 13:30:00 JORGE CHANDRA ity [facility] 2022-12-29 2022-12-29 Orders Doctor SUDHA 1.2.840.114 [id number] Univers 00:00:00 00:00:00 Only Unassigned, ALEM 350.1.13.10 ity of [place] [facility] 4.2.7.2.686 [facility] [phone] [facility] 009 Branch 2022-12-29 2022-12-29 Telephone Felisha LAGORDON 1.2.821.517 9147 [id number] Univers 00:00:00 00:00:00 Juany HEALTH 350.1.13.10 it y of [place] 4.2.7.2.686 [facility] - [phone] Med [facility] 419 Branch 2022-12-28 2022-12-28 Telephone Felisha [facility] 1.2.377.082 1816 74857 Univers 00:00:00 00:00:00 Juany HEALTH 350.1.13.10 it y of [place] 4.2.7.2.686 [facility] - [phone] Med [facility] 419 Branch 2022-12-25 2022-12-25 Patient Graciela LAGORDON 1.2.840.114 [id number] 828 Univers 00:00:00 00:00:00 Secure Msg Diazie HEALTH 350.1.13.10 ity [facility] 4.2.7.2.686 Zay as BLANCA?BLEA [phone] Hi denilson [place] [address] [place] MEDICAL OFF[facility] 2022-12-23 2022-12-23 Telephone [facility] 1.2.840.11 4 [id number] Univers 00:00:00 00:00:00 Angieoctavio NICHOL 350.1.13.10 it y of [place] [id number] [address] 2022-12-23 2022-12-23 Patient [facility] 1.2.840.114 [id number] Univers 00:00:00 00:00:00 Secure Msg Norberto GUERRERO 350.1.13.10 ity of [facility] 4.2.7.2.[place] [phone] [address] 2022-12-22 2022-12-22 [facility], Ang - [facility] 1.2.840.1 14 [id number] Univers 09:30:00 09:45:00 [facility] 350.1.13.1 0 ity of [place] 4.2.7.2.686 Zay as BLANCA?BLEA [phone] [facility] OFFICE [facility] 2022-12-22 2022-12-22 Office [facility] 1.2.840.114 [id number] Univers 08:00:00 08:53:38 Visit Jorge GANDARA 350.1.13.10 it y [place] [phone] [address] 2022-12-22 2022-12-22 Outpatient R JORGE CHANDRA [facility] B [id number] Univers 08:00:00 08:53:38 JORGE CHANDRA ity of [facility] 2022-12-22 2022-12-22 Patient Doctor HALEY 1.2.840.114 [id number] Univers 00:00:00 00:00:00 Secure Msg Unassigned, ALEM 350.1.13.10 ity of [place] HOSPITAL 4.2.7.2.686 Zay as [phone] [facility] 019 Branch 2022-12-21 2022-12-21 Orders Doctor SUDHA 1.2.840.114 [id number] Univers 00:00:00 00:00:00 Only Unassigned, ALEM 350.1.13.10 ity of [place] HOSPITAL 4.2.7.2.686 Zay as [phone] [facility] 009 Branch 2022-12-19 2022-12-19 Emergency X [facility] ERT [id number] Univers 02:32:00 05:47:00 MDKI ity [facility] 2022-12-19 2022-12-[address] [facility] 1.2.935.430 5039 10763 Univers 02:32:00 05:47:00 Miladys GUERRERO 350.1.13.10 ity [facility] 4.2.7.2.686 [facility] [phone] [facility] 084 Branch 2022-12-18 2022-12-18 Outpatient R KENZIE BADILLO [facility] [id number] Univers 09:45:00 09:45:00 ity of [facility] 2022-12-17 2022-12-17 Telephone Kenzie Badillo [facility] 1.2.840.114 [id number] Univers 00:00:00 00:00:00 E HEALTH 350.1.13.10 it y of [place] 4.2.7.2.[address] [facility] [phone] [facility] ical [employer] 201 Branch 2022-12-15 2022-12-15 Outpatient R [facility]CA [facility] [id number] Univers 11:00:00 11:30:30 SENDIL ity [facility] 2022-12-15 2022-12-15 Office [facility] 1.2.840.114 [id number] 131 Univers 11:00:00 11:30:30 Visit Amrit GUERRERO 350.1.13.10 ity of [place] 4.2.7.2.686 [facility] [phone] Hi dical NAL 059 [facility] 2022-12-15 2022-12-15 Telephone [facility] 1.2.872.847 [id number] 87665 Univers 00:00:00 00:00:00 Amrit GUERRERO 350.1.13.10 it[place] of [place].2.[place] [facility] [phone] Hi dical [address] 2022-12-14 2022-12-14 Emergency X [facility]ERLY [facility], [facility] ERT [id number] Univers 03:03:00 07:05:00 WAKILI ity [facility] 2022-12-14 2022-12-14 [facility] 1.2.870.282 7391 [id number] Univers 03:03:00 07:05:00 Calvinyasmeen S YOLANDA 350.1.13.10 [place] [phone] [address] 2022-11-03 2022-11-03 Emergency X VASUT, [facility] ERT [id number] Univers 08:15:00 12:05:00 GAURANG ity [facility] 2022-11-03 2022-11-03 Emergency [facility] 1.2.047.256 4839 65759 Univers 08:15:00 12:05:00 Gaurang GUERRERO 350.1.13.10 i ty [place] [id number] [address] 2022-10-28 2022-10-28 Outpatient R GRACIELA [facility] [id number] Univers 15:00:00 15:28:11 KAYLEY calixto [facility] 2022-10-28 2022-10-28 Office Graciela [facility] 1.2.840.114 [id number] Univers 15:00:00 15:28:11 Visit Kayley CISNEROS 350.1.13.10 it y [facility] 4.2.7.2.686 Zay as BLANCA?BLEA [phone] [address] OFFICE [facility] 2022-10-28 2022-10-28 Orders Doctor HALEY 1.2.840.114 [id number] Univers 00:00:00 00:00:00 Only Unassigned, ALEM 350.1.13.10 ity of [place] [facility] 4.2.7.2.686 Zay as [phone] [facility] 009 Branch 2022-10-28 2022-10-28 Abstract Graciela [facility] 1.2.840.114 [id number] Univers 00:00:00 00:00:00 Replaced by [facility] 350.1.13.10 it y of [place] 4.2.7.2.686 Zay as BLANCA?BLEA [id number] [address] OFFICE [facility] 2022-10-28 2022-10-28 Patient [facility] 1.2.840.114 [id number] Univers 00:00:00 00:00:00 Outreach Florence Wei [facility] 350.1.13.10 i ty of [place] 4.2.7.2.686 Zay as BLANCA?BLEA [phone] [address] OFFICE [facility] 2022-10-28 2022-10-28 Telephone Henry [facility] 1.2.795.509 1711 [id number] Univers 00:00:00 00:00:00 Phylicia [facility] 350.1.13.10 i ty of [place] 4.2.7.2.686 [place] [facility] [phone] [address] 2022-10-13 2022-10-13 Emergency [facility] ERT [id number] Univers 01:56:00 02:55:00 MILADYS ity [facility] 2022-10-13 2022-10-13 Emergency [facility] 1.2.402.499 9336 [id number] Univers 01:56:00 02:55:00 Miladys S PATSYJUAREZ 350.1.13.10 ity of [place] 4.2.7.2.[place] [id number] [facility] [address] [place] 2022-10-09 2022-10-09 Emergency X [facility] ERT [id number] Univers 18:46:00 19:00:00 BRANT ity of [facility] 2022-10-09 2022-10-09 Emergency [place], [facility] 1.2.133.020 9933 62594 Univers 18:46:00 19:00:00 Brant GUERRERO 350.1.13.10 i ty [place] [id number] [facility] 084 [address] 2022-10-09 2022-10-09 Orders Doctor SUDHA 1.2.840.114 [id number] Univers 00:00:00 00:00:00 Only Unassigned, ALEM 350.1.13.10 ity of [place] [facility] 4.2.7.2.686 Zay as [id number] [facility] 009 Branch 2022-10-06 2022-10-06 [facility], 1.2.840.1 [id number] 762 [id number] Methodi 17:35:51 23:59:00 Encounter Jorge Luis 41871.1.1 997 s t 3.430.2.7 Hospit a .3.431052 l .8 2022-10-06 2022-10-06 [facility], 1.2.840.1 [id number] 202 [id number] Methodi 17:35:51 23:59:00 Encounter Jorge Luis 06670.1.1 997 s t 3.430.2.7 Hospit a .3.807986 l .8 2022-10-06 2022-10-06 [facility], 1.2.840.1 [id number] 159 [id number] Methodi 17:35:36 23:59:00 Encounter Jorge Luis 11157.1.1 999 s t 3.430.2.7 Hospit a .3.775191 l .8 2022-10-06 2022-10-06 [facility], 1.2.840.1 [id number] 303 [id number] Methodi 17:35:36 23:59:00 Encounter Jorge Luis 32583.1.1 999 s t 3.430.2.7 Hospit a .3.914846 l .8 2022-10-06 2022-10-06 Travel 1.2.840.1 1.2.109.441 4340 029280 Methodi 00:00:00 00:00:[address] 3.430.2.7 0.2.7.3.698 Ho spita .3.892329 084.8 l .8 2022-10-06 2022-10-06 Travel 1.2.840.1 1.2.783.159 3802 254612 Methodi 00:00:00 00:00:[address] 3.430.2.7 0.2.7.3.698 Ho spita .3.867056 084.8 l .8 2022-09-09 2022-09-09 Emergency X VIN [facility] ERT [id number] Univers 18:15:00 19:35:00 NATY calixto [facility] 2022-09-09 2022-09-09 Emergency [facility] 1.2.840.114 [id number] [id number] Univers 18:15:00 19:35:00 Naty GUERRERO 350.1.13.10 i ty of [place] 4.2.7.2.686 [facility] [phone] [address] 2022-08-18 2022-08-18 Emergency X [facility] ERT [id number] Univers 16:38:00 17:44:00 HUY calixto [facility] 2022-08-18 2022-08-18 Emergency [facility] 1.2.872.758 1664 1453 Univers 16:38:00 17:44:00 Huy GUERRERO 350.1.13.10 i ty of [place] 4.2.7.2.686 [facility] [phone] [address] 2022-08-07 2022-08-08 Inpatient CLAUDETTE Tyler, [facility] [id number] [facility] 14:50:00 12:01:00 Gianna [facility] 2022-08-03 2022-08-03 Emergency EM Ernesto, [facility] AERS [id number] [facility] 14:26:00 16:02:00 Roro 86 [facility] 2022-07-23 2022-07-23 [facility], 1.2.840.1 [id number] Methodi 10:30:00 10:30:00 Encounter Jorge Luis 10715.1.1 209 s t 3.430.2.7 Hospit a .3.811968 l .8 2022-07-23 2022-07-23 Telephone Gabi, 1.2.840.1 [id number] 2099 [id number] Methodi 00:00:00 00:00:[address] 3.430.2.7 Hospit a .3.184328 l .8 2022-07-23 2022-07-23 Telephone Gabi, 1.2.840.1 [id number] 2099 [id number] Methodi 00:00:00 00:00:[address] 3.430.2.7 Hospit a .3.359526 l .8 2022-07-07 2022-07-07 Outpatient LONA DILL [id number] Lona 10:45:00 10:45:00 ELBERT alvarez 2022-07-06 2022-07-06 Travel 1.2.840.1 1.2.933.137 7259 941197 Methodi 00:00:00 00:00:[address] 3.430.2.7 0.2.7.3.698 Ho spita .3.675438 084.8 l .8 2022-07-06 2022-07-06 Travel 1.2.840.1 1.2.258.844 0812 207442 Methodi 00:00:00 00:00:[address] 3.430.2.7 0.2.7.3.698 Ho spita .3.525168 084.8 l .8 2022-06-15 2022-06-16 [facility], 1.2.840.1 [id number] 2099 161288 Methodi 14:15:00 11:08:59 Visit Jorge Luis 89350.1.[address] 3.430.2.7 Hospit a .3.413230 l .8 2022-06-15 2022-06-15 [facility], 1.2.840.1 [id number] 122 [id number] Methodi 14:15:15 23:59:00 Encounter Jorge Luis 27923.1.1 971 s t 3.430.2.7 Hospit a .3.415893 l .8 2022-06-15 2022-06-15 [facility], 1.2.840.1 [id number] 301 [id number] Methodi 14:15:13 23:59:00 Encounter Jorge Luis 77027.1.1 963 s t 3.430.2.7 Hospit a .3.314777 l .8 2022-06-15 2022-06-15 [facility], 1.2.840.1 [id number] 434 [id number] Methodi 14:13:36 14:14:00 Encounter Jorge Luis 27118.1.1 680 s t 3.430.2.7 Hospit a .3.095925 l .8 2022-06-15 2022-06-15 [facility], 1.2.840.1 [id number] 052 [id number] Methodi 14:12:01 14:12:01 Encounter Jorge Luis 50102.1.1 418 s t 3.430.2.7 Hospit a .3.804777 l .8 2022-06-15 2022-06-15 [facility], 1.2.840.1 [id number] 2100 [id number] Methodi 00:00:00 00:00:00 Only Jorge Luis 70982.1.[address] 3.430.2.7 Hospit a .3.410922 l .8 2022-06-15 2022-06-15 Travel 1.2.840.1 1.2.698.301 2066 302781 Methodi 00:00:00 00:00:[address] 3.430.2.7 0.2.7.3.698 Ho spita .3.017558 084.8 l .8 2022-06-11 2022-06-11 Travel 1.2.840.1 1.2.196.670 8570 089010 Methodi 00:00:00 00:00:[address] 3.430.2.7 0.2.7.3.698 Ho spita .3.292289 084.8 l .8 2022-02-17 2022-02-17 Refill Vivian, 1.2.840.1 [id number] 2099 046064 Methodi 00:00:00 00:00:[address] Andrea 3.430.2.7 Hospit a .3.645742 l .8 2022-01-20 2022-01-20 Office Vivian 1.2.840.1 [id number] 2099 614744 Methodi 13:00:00 13:57:49 Visit [place] 39286.1.[address] Andrea 3.430.2.7 Hospit a .3.252302 l .8 2022-01-20 2022-01-20 Telephone GEORGIE Kelley 1.2.840.114 9 [id number] [facility] 00:00:00 00:00:00 Michi MIJARESPEC 350.1.13.10 James 4.2.7.2.686 [facility] 524.7537954 [address] DIABETES CLINIC 2022-01-20 2022-01-20 Travel 1.2.840.1 1.2.313.130 7168 390862 Methodi 00:00:00 00:00:[address] 3.430.2.7 0.2.7.3.698 Ho spita .3.705891 084.8 l .8 2022-01-19 2022-01-19 Telephone GEORGIE Borges 1.2.840.114 93 [id number] [facility] 00:00:00 00:00:00 Lincoln MULTISPEC 350.1.13.10 ity of Andrea [place] 4.2.7.2.686 [facility] [id number] [facility] AND [place] [address] DIABETES CLINIC 2021-11-21 2021-11-21 Orders Doctor SUDHA 1.2.840.114 [id number] Univers 00:00:00 00:00:00 Only Unassigned, ALEM 350.1.13.10 ity of [place] [facility] 4.2.7.2.686 [facility] [phone] [facility] 009 Branch 2021-11-17 2021-11-18 Emergency [facility] [id number] Univers 19:45:00 00:44:00 DONTA ity [facility] 2021-11-17 2021-11-18 [facility] 1.2.570.250 6156 8574 Univers 19:45:00 00:44:00 Donta GUERRERO 350.1.13.10 i ty of [place] 4.2.7.2.686 [facility] [id number] [place] 163294 Branch 2021-11-16 2021-11-16 Emergency X [facility] ERT [id number] Univers 20:28:00 21:58:00 MILADYS ity [facility] 2021-11-16 2021-11-16 Emergency [facility] 1.2.448.092 2716 5340 Univers 20:28:00 21:58:00 Miladys GUERRERO 350.1.13.10 ity [facility] 4.2.7.2.686 [facility] [phone] [place] 163294 Branch 2021-10-02 2021-10-02 Emergency EM Nwoye, HCACL MALISSA [id number] [facility] 16:59:00 20:32:00 Hung [id number] Cl [facility] 2021-10-02 2021-10-02 Emergency EM EDDOC, [facility] [id number] [facility] 16:59:00 20:32:00 GENERIC 76 [facility] 2021-10-01 2021-10-01 Petr Borges 1.2.840.1 [id number] 2100 [id number] Methodi 00:00:00 00:00:[address] Andrea 3.430.2.7 Hospit a .3.713633 l .8 2021-09-30 2021-09-30 Emergency X [facility] ERT [id number] Univers 13:31:00 16:34:00 AWILDA [facility] 2021-09-30 2021-09-30 Emergency [facility] 1.2.840.114 90 [id number] Univers 13:31:00 16:34:00 Awilda GUERRERO 350.1.13.10 ity [facility] 4.2.7.2.686 [facility] [id number] [address] 2021-08-14 2021-08-14 Refill Gutierres, 1.2.840.1 [id number] 21 [id number] Methodi 00:00:00 00:00:[address] 3.430.2.7 Hospit a .3.807640 l .8 2021-08-12 2021-08-12 Refill Gutierres, 1.2.840.1 [id number] 21 [id number] Methodi 00:00:00 00:00:[address] 3.430.2.7 Hospit a .3.533748 l .8 2021-07-23 2021-07-23 Emergency X [facility] ERT [id number] 08 Univers 16:14:00 17:06:[facility] 2021-07-23 2021-07-23 Emergency [facility] 1.2.514.459 2786 5383 Univers 16:14:00 17:06:00 YOLANDA 350.1.13.10 i ty [facility] 4.2.7.2.686 [facility] [phone] [address] 2021-07-23 2021-07-23 Emergency EM ITALIA Coles AERS [id number] [facility] 13:58:00 14:24:00 Burak [id number] [facility] 2021-07-23 2021-07-23 Emergency EM Sanket [place] [facility] [id number] [facility] 13:58:00 14:24:00 Burak Calle [facility] 2021-07-10 2021-07-10 Telemedici Vivian, 1.2.840.1 [id number] 2 [id number] Methodi 08:30:00 09:02:51 ne Yoseph 28970.1.[address] Andrea 3.430.2.7 Hospit a .3.154683 l .8 2021-07-09 2021-07-09 Travel 1.2.840.1 1.2.335.647 0561 302911 Methodi 00:00:00 00:00:[address] 3.430.2.7 0.2.7.3.698 Ho spita .3.136254 084.8 l .8 2021-06-13 2021-06-13 Outpatient VIVIAN [facility] [id number] [place] 00:00:00 00:00:00 YOSEPH 976 Method i 2021-04-17 2021-04-17 Emergency E LOLITA WSASERMAN SE MED [id number] 16:40:00 19:42:00 [facility] 2021-03-30 2021-03-30 Emergency E SATURNINO [facility] 7514 BL 00:46:00 06:26:00 [facility] 2021-01-15 2021-01-15 Outpatient Luz, SALENA OUTD [id number] [facility] 08:00:00 08:00:00 Rik [id number] [facility] 2021-01-09 2021-01-09 Emergency E LOLITA WASSERMAN SE MED 7513 12:29:00 16:41:00 [facility] 2020-12-26 2020-12-26 Emergency [facility] [id number] 09 [place] 00:00:00 00:00:[address] 2020-12-21 2020-12-22 Emergency [facility], [facility] 1.2.269.689 [id number] [facility] 22:42:00 02:02:00 Miladys Guerrero 350.1.13.10 ity of [place] 4.2.7.2.[address] [facility] [id number] [facility] 084 [place] 2020-12-21 2020-12-22 Emergency [facility] 1.2.776.136 [id number] 22:42:00 02:02:00 Miladys Waters Yolanda 350.1.13.10 [place] 4.2.7.2.686 [place] [id number] 08 2020-12-21 2020-12-21 Orders Doctor HALEY 1.2.840.114 [id number] Univers 00:00:00 00:00:00 Only Unassigned, ALEM 350.1.13.10 ity of [place] [facility] 4.2.7.2.686 [facility] [id number] [facility] 009 [place] 2020-12-21 2020-12-21 Orders Doctor HALEY 1.2.840.114 [id number] 00:00:00 00:00:00 Only Unassigned, ALEM 350.1.13.10 [place] [facility] 4.2.7.2.68 [id number] 2020-08-15 2020-08-19 Inpatient [facility] MALISSA [id number] [facility] 14:57:00 06:49:15 [facility] 2020-08-15 2020-08-15 Emergency [facility] 1.2.807.614 [id number] Univers 03:26:00 06:17:00 Donta Yolanda 350.1.13.10 i ty of [place] 4.2.7.2.686 [facility] [id number] [address] 2020-08-15 2020-08-15 Emergency [facility] [id number] Univers 03:26:00 06:17:00 DONTA ity of [facility] 2020-08-15 2020-08-15 Emergency [facility] 1.2.080.213 [id number] 03:26:00 06:17:00 Donta [place] 350.1.13.10 [place] 4.2.7.2.686 [place] [id number] 08 2020-04-13 2020-04-13 Emergency [facility] 1.2.840.114 [id number] [facility] 19:38:00 23:40:00 Awilda Guerrero 350.1.13.10 ity of [place] 4.2.7.2.[address] [facility] [id number] [address] 2020-04-13 2020-04-13 Emergency Elisa, [facility] 1.2.840.114 [id number] 19:38:00 23:40:00 Awilda Guerrero 350.1.13.10 [place] 4.2.7.2.686 [place] [id number] [facility] 2020-04-13 2020-04-13 Orders Doctor SUDHA 1.2.840.114 [id number] [facility] 00:00:00 00:00:00 Only Unassigned, ALEM 350.1.13.10 ity of [place] [facility] 4.2.7.2.686 Zay as [phone] [address] 2020-04-13 2020-04-13 Orders Doctor HALEY 1.2.840.114 [id number] 00:00:00 00:00:00 Only Unassigned, ALEM 350.1.13.10 [place] [facility] 4.2.7.2.686 [id number] [facility] 2020-04-10 2020-04-10 Emergency [place], [facility] 1.2.041.980 [id number] 5068 [facility] 15:39:00 19:05:00 Huy Guerrero 350.1.13.10 i ty of [place] 4.2.7.2.686 [facility] [phone] [address] 2020-04-10 2020-04-10 Emergency [place], [facility] [facility] 1.2.787.912 [id number] 15:39:00 19:05:00 Huy Guerrero 350.1.13.10 [place] 4.2.7.2.686 [place] [phone] [facility] 2020-04-10 2020-04-10 Orders Doctor HALEY 1.2.840.[id number] [place] [address] 00:00:00 00:00:00 Only Unassigned, ALEM 350.1.13.10 ity of [place] [facility] 4.2.7.2.686 Zay as [phone] [address] 2020-04-10 2020-04-10 Orders Doctor SUDHA 1.2.840.114 [id number] 00:00:00 00:00:00 Only Unassigned, ALEM 350.1.13.10 [place] [facility] 4.2.7.2.686 [id number] 009 2020-03-11 2020-03-11 Dusty FOSTER [facility] Obstetrics [id number] [place] 10:00:00 10:00:00 t; Gayatri HUSAIN and Quynh FOSTER Gynecology rubén HUSAIN M.D. [facility] 2020-02-28 2020-02-28 [facility] [id number] [place] 08:30:00 08:30:00 t; Gayatri HUSAIN ans ASHA, M.D. 2020-02-23 2020-02-23 [facility]sty [facility] [id number] 74 [place] 11:00:00 11:00:00 t; Gayatri HUSAIN ans ASHA, M.D. 2020-02-16 2020-02-16 Dusty MARTE [facility] Obstetrics 673 [id number] [place] 14:15:00 14:15:00 t; Yue ROCHA i, M.D. Gynecology Dinah [facility] M[facility]D. [facility] 2020-02-15 2020-02-15 Emergency E AMELIE, MHSE MHSE 7510 20:06:00 21:19:00 [facility] 2020-02-14 2020-02-14 Dusty MATAMOROS [facility] Obstetrics [id number] [place] 09:00:00 09:00:00 t; SAMIR MATAMOROS and Phy sici BETHANY, M.D. Gynecology rubén [place] 2020-01-31 2020-01-31 Dusty AGRAWAL [facility] Obstetrics 667 [id number] [place] 08:30:00 08:30:00 t; Yue WATKINS i, D.O. Gynecology [facility] Dinah WATKINS [facility] 2019-12-20 2019-12-20 [email or web address] Orthopedics 65 [id number] [place] 09:30:00 09:30:00 t; mayo CID M.D. Sports Jewel Lazo M.D. [facility] 2019-12-20 2019-12-20 Outpatient Raju_P MMG MMG [id number] 020 [place] 04:51:00 04:51:00 0415 [facility] 2019-12-18 2019-12-18 Emergency E TABBY, MHSE MHSE 7500 MH 20:54:00 21:40:00 DEBBIE [facility] a [facility] l 2019-10-11 2019-10-12 Emergency X [facility] ERT [id number] Univers 21:52:36 00:17:00 DONTA ity [facility] 2019-10-11 2019-10-12 Emergency [facility] 1.2.068.151 [id number] Univers 21:52:36 00:17:00 Donta Guerrero 350.1.13.10 i ty of [place] 4.2.7.[address] [place] [address] [id number] [facility] 084 [place] 2019-10-11 2019-10-12 Emergency [facility] 1.2.526.450 3549 3555 21:52:36 00:17:00 Donta Guerrero 350.1.13.[address] [place] [address] [place] [address] [phone] 08 2019-10-11 2019-10-11 Orders Doctor SUDHA 1.2.840.114 [id number] Univers 00:00:00 00:00:00 Only Unassigned, ALEM 350.1.13.10 ity [facility] 4.2.7.2.[address] [place] [address] [phone] [facility] 009 [place] 2019-10-11 2019-10-11 Orders Doctor SUDHA 1.2.840.114 [id number] 00:00:00 00:00:00 Only Unassigned, ALEM 350.1.13.10 [facility] 4.2.7.2.68 [id number] 009 2019-06-28 2019-06-28 Appointmen MARIBEL GRUBBS Obstetrics [id number] [place] 16:00:00 16:00:00 t; Jackie CAVANAUGH. and Ph ysici HUMERA, Gynecology Dinah Medina M.D. [facility] 2019-05-12 2019-05-12 Nurse Visit, [facility] Nurse [facility] 1.2 .840.114 [id number] [facility] 10:44:42 12:05:57 Visit Perri Pérez LITHOGRAPHIC GENERAL WORKER 350.1.13.10 ity of REGIONAL 4.2.7.2.686 Zay as MATERNAL [id number] Med ical & CHILD 107 [facility] 2019-05-12 2019-05-12 Nurse Visit, [facility] 1.2.840.114 [id number] 10:44:42 12:05:57 [facility] LITHOGRAPHIC GENERAL WORKER 350.1.13.10 Nurse REGIONAL 4.2.7.2.686 MATERNAL [phone] & CHILD [address] [place] [address] 2019-05-10 2019-05-10 [facility] 1.2.840.114 [id number] [facility] 00:00:00 00:00:00 Perri Olivier LITHOGRAPHIC GENERAL WORKER 350.1.13.10 it y of REGIONAL 4.2.7.2.686 Zay as MATERNAL [id number] Med ical & CHILD [address] [place] [address] 2019-05-10 2019-05-10 [facility] 1.2.840.114 [id number] 00:00:00 00:00:00 Perri Olivier LITHOGRAPHIC GENERAL WORKER 350.1.13.10 REGIONAL 4.2.7.2.686 MATERNAL [id number] & CHILD [address] [facility] 2019-04-03 2019-04-03 Patient ROBIN Mcfadden 1.2.840.114 [id number] [facility] 00:00:00 00:00:00 Secure Msg Ivet Y HEALTH 350.1.13.10 ity of CLINICS [place]2.[place] [phone] [address] 2019-04-03 2019-04-03 Patient Bogdan, UNIVERSIT 1.2.840.114 [id number] 00:00:00 00:00:00 Secure Msg Ivet Y HEALTH 350.1.13.10 CLINICS 4.2.7.2.686 [phone] [facility] 2019-03-07 2019-03-07 Patient Doctor SUDHA Astorga.2.840.114 [id number] Univers 00:00:00 00:00:00 Secure Msg Unassigned, ALEM 350.1.13.10 ity of [place] [facility] 4.2.7.2.686 Zay as [phone] [address] 2019-03-07 2019-03-07 Patient Doctor SUDHA Johnston2.840.114 [id number] 20 00:00:00 00:00:00 Secure Msg Unassigned, ALEM 350.1.13.10 [place] [facility] 4.2.7.2.686 [id number] 044 2019-02-27 2019-02-27 Patient Doctor SUDHA Johnston2.840.114 [id number] Univers 00:00:00 00:00:00 Secure Msg Unassigned, ALEM 350.1.13.10 ity of [place] [facility] 4.2.7.2.686 Zay as [phone] [address] 2019-02-27 2019-02-27 Patient Doctor SUDHA Johnston2.840.114 [id number] 58 00:00:00 00:00:00 Secure Msg Unassigned, ALEM 350.1.13.10 [place] [facility] 4.2.7.2.686 [id number] 044 2018-10-13 2018-10-13 MARIBEL Cui [facility] [id number] 058 [place] 14:30:00 14:30:00 t; Jennifer FINK i, M.D. ans JORDAN, M.D. 2018-09-07 2018-09-21 Outpatient [facility] [id number] 15:00:00 10:19:03 2018-09-07 2018-09-07 AppointMARIBEL Rae Manager Pulmonary [id number] [place] 15:00:00 15:00:00 t; BONITA KRISHNA Phys ici KANDACE, M.D. ans M.D. Results Test Description Test Time Test Comments Results Result Comments Source TROPONIN I 2023-01-21 20:27:33 Test Item Value Reference Range Interpretation Comme nts TROPONIN I (test code = 1919467005) <=0.034 ANGI (test code = ANGI) Reference [...] biotin. Lab Interpretation (test code = Normal 95986-8) [facility] [id number] 20:18:51 Test Item Value Reference Range Interpretation Comments NA (test code = 132 mmol/L 135-145 L 6692000436) K (test code = 4.1 mmol/L 3.5-5.0 6174310942) CL (test code = 98 mmol/L 98-108 0759330034) CO2 TOTAL (test code = 26 mmol/L 23-31 3877836180) AGAP (test code = 8 2-16 3618810664) BUN (test code = 12 mg/dL 7-23 5061585379) GLUCOSE (test code = 79 mg/dL 70-110 6616887463) CREATININE (test code = 0.58 mg/dL 0.50-1.04 1829928873) TOTAL BILI (test code = 0.4 mg/dL 0.1-1.8 6237866815) CALCIUM (test code = 9.0 mg/dL 8.6-10.6 0654898363) T PROTEIN (test code = 7.4 g/dL 6.3-8.2 2422718512) ALBUMIN (test code = 4.5 g/dL 3.5-5.0 5519157843) ALK PHOS (test code = 62 U/L 34-122 7776381086) ALTv (test code = 23 U/L 5-35 1742-6) AST(SGOT) (test code = 31 U/L 13-40 7093222516) eGFR (test code = 122.1 mL/min/1.73m2 0790537229) ANGI (test code = ANGI) Association of [...] tests). Lab Interpretation Abnormal (test code = 43137-0) [facility] HospitalLip[facility], [id number] 20:18:51 Test Item Value Reference Range Interpretation Comments LIPASE (test code = 9978105495) 186 U/L 0-220 Lab Interpretation (test code = Normal 90420-4) [facility] with [id number] 19:39:40 Test Item Value Reference Range Interpretation Comments WBC (test code = 5.62 See_Comment [Automated 3338-2) message] The sy stem which generated this result transmitted reference range : 4.30 - 11.10 10*3/?L. The reference range was not used to interpret this result as normal/abnormal . RBC (test code = 4.24 See_Comment [Automated 484-8) message] The sy stem which generated this [...] RDW-SD (test code = 44.1 fL 39.0-49.9 07955-7) RDW-CV (test code = 13.2 % 12.0-15.5 788-0) PLT (test code = 277 See_Comment [Automated 777-3) message] The sy stem which generated this result transmitted reference range : 166 - 358 10*3/ ?L. The reference r dagoberto was not used to interpret this result as normal/abnormal . MPV (test code = 8.5 fL 9.5-12.9 L 77632-8) NRBC/100 WBC (test 0.0 See_Comment [Automat ed code = 2753242419) message] The system which generated this result transmitted reference range : 0.0 - 10.0 /100 WBCs. The refer ence range was not u sed to interpret th is result as normal/abnormal . NRBC x10^3 (test code See_Comment [Auto mated = 9177222073) message] The s ystem which generated this result transmitted reference range : 10*3/?L. The reference range was not used to interpret this result as normal/abnormal . GRAN MAT (NEUT) % 46.4 % (test code = 770-8) IMM GRAN % (test code 0.90 % = 4975736594) LYMPH % (test code = 38.6 % 736-9) MONO % (test code = 12.5 % 5905-5) EOS % (test code = 0.7 % 713-8) BASO % (test code = 0.9 % 706-2) GRAN MAT x10^3(ANC) 2.61 10*3/uL 1.88-7.09 (test code = 2344556481) IMM GRAN x10^3 (test 0.05 10*3/uL 0.00-0.06 code = 0011021179) LYMPH x10^3 (test code 2.17 10*3/uL 1.32-3.29 = 731-0) MONO x10^3 (test code 0.70 10*3/uL 0.33-0.92 = 742-7) EOS x10^3 (test code = 0.04 10*3/uL 0.03-0.39 711-2) BASO x10^3 (test code 0.05 10*3/uL 0.01-0.07 = 704-7) Lab Interpretation Abnormal (test code = 40361-9) [facility] [id number] 19:34:00 Test Item Value Reference Range Interpretation Comments POCT PREG (test code = 1605) Negative On board controls acceptable with Yes C Line (test code = 3574) POCT PREG LOT # (test code = 3575) 114792 POCT PREG TEST DATE (test 04/13/2024 code = 3576) Lab Interpretation (test code = Normal 84614-4) [facility]OLIC PANEL (78353)2023-01-15 15:36:17 Test Item Value Reference Range Interpretation Comments NA (test code = 139 mmol/L 135-145 8545619405) K (test code = 4.7 mmol/L 3.5-5.0 6700353538) CL (test code = 103 mmol/L 98-108 6756118638) CO2 TOTAL (test code 28 mmol/L 23-31 = 2365177944) AGAP (test code = 8 2-16 0354738817) BUN (test code = 14 mg/dL 7-23 7278662203) GLUCOSE (test code = 75 mg/dL 70-110 9552823644) CREATININE (test code 0.72 mg/dL 0.50-1.04 = 4208193327) TOTAL BILI (test code 0.4 mg/dL 0.1-1.1 = 8982787860) CALCIUM (test code = 9.4 mg/dL 8.6-10.6 6629484554) T PROTEIN (test code 7.4 g/dL 6.3-8.2 = 9664582312) ALBUMIN (test code = 4.5 g/dL 3.5-5.0 9635678506) ALK PHOS (test code = 58 U/L 34-122 6711824684) ALTv (test code = 22 U/L 5-35 1742-6) AST(SGOT) (test code 24 U/L 13-40 = 7713642313) eGFR (test code = 95.1 mL/min/1.73m2 0574437871) ANGI (test code = ANGI) Association of [...] or urine or abnormalities in imaging tests). [facility]-12 15:36:17 Test Item Value Reference Range Interpretation Comments LIPASE (test code = 3226231674) 93 U/L 0-220 Lab Interpretation (test code = Normal 88966-0) [facility] WITH [id number] 15:19:14 Test Item Value Reference Range Interpretation [...] RDW-SD (test code = 42.5 fL 39.0-49.9 33528-5) RDW-CV (test code = 12.9 % 12.0-15.5 788-0) PLT (test code = 317 See_Comment [Automated 777-3) message] The sy stem which generated this result transmitted reference range : 166 - 358 10*3/ ?L. The reference r dagoberto was not used to interpret this result as normal/abnormal . MPV (test code = 8.8 fL 9.5-12.9 L 56714-1) NRBC/100 WBC (test 0.0 See_Comment [Automat ed code = 3393721136) message] The system which generated this result transmitted reference range : 0.0 - 10.0 /100 WBCs. The refer ence range was not u sed to interpret th is result as normal/abnormal . NRBC x10^3 (test code See_Comment [Auto mated = 7379359836) message] The s ystem which generated this result transmitted reference range : 10*3/?L. The reference range was not used to interpret this result as normal/abnormal . GRAN MAT (NEUT) % 55.7 % (test code = 770-8) IMM GRAN % (test code 0.30 % = 5559119131) LYMPH % (test code = 34.0 % 736-9) MONO % (test code = 8.1 % 5905-5) EOS % (test code = 1.0 % 713-8) BASO % (test code = 0.9 % 706-2) GRAN MAT x10^3(ANC) 4.45 10*3/uL 1.88-7.09 (test code = 8973118148) IMM GRAN x10^3 (test 0.00-0.06 code = 9736110907) LYMPH x10^3 (test code 2.72 10*3/uL 1.32-3.29 = 731-0) MONO x10^3 (test code 0.65 10*3/uL 0.33-0.92 = 742-7) EOS x10^3 (test code = 0.08 10*3/uL 0.03-0.39 711-2) BASO x10^3 (test code 0.07 10*3/uL 0.01-0.07 = 704-7) Lab Interpretation Abnormal (test code = 63466-3) [facility] [id number] 16:38:09 Test Item Value Reference Range Interpretation Comments POCT Creatinine (test code = 0.7 mg/dL 0.5-1.8 8210778135) Lab Interpretation (test code = Normal 69327-3) [facility] HospitalTHYROID STIMULATING [id number] 17:16:01 Test Item Value Reference Range Interpretation Comments TSH (test code = 3.96 See_Comment [Automated message] 6924693771) The system [facility] generated this result transmitted ref erence range: 0.45 - 4 .70 mIU/L. The refe rence range was not u sed to interpret this result as normal/abnor mal. Lab Interpretation (test Normal code = 01553-9) [facility] HospitalD-[id number] 11:33:33 Test Item Value Reference Interpretation Comments Range D-DIMER (test code = See_Comment [Autom ated 0849464400) message] The system which generated this result [...] diagnosis. Lab Interpretation Normal (test code = 72389-3) [facility] [id number] 10:57:27 Test Item Value Reference Range Interpretation Comments TROPONIN I (test code = 0.012 ng/mL <=0.034 2867753061) ANGI (test code = ANGI) Reference (Normal) [...] biotin. Lab Interpretation Normal (test code = 84152-6) [facility] [id number] 09:04:18 Test Item Value Reference Range Interpretation Comments TROPONIN I (test code = 0.010 ng/mL <=0.034 0732972021) ANGI (test code = ANGI) Reference (Normal) [...] biotin. Lab Interpretation Normal (test code = 24551-7) [facility] WITH [id number] 09:03:38 Test Item Value Reference Range Interpretation Comments WBC (test code = 10.76 See_Comment [Automated 1811-2) message] The sy stem which generated this result transmitted reference range : 4.30 - 11.10 10*3/?L. The reference range was not used to interpret this result as normal/abnormal . RBC (test code = 4.19 See_Comment [Automated 489-8) message] The sy stem which generated this [...] (test code = 36.7 fL 39.0-49.9 L 73135-4) RDW-CV (test code = 11.6 % 12.0-15.5 L 788-0) PLT (test code = 317 See_Comment [Automated 167-3) message] The sy stem which generated this result transmitted reference range : 166 - 358 10*3/ ?L. The reference r dagoberto was not used to interpret this result as normal/abnormal . MPV (test code = 8.8 fL 9.5-12.9 L 06260-2) NRBC/100 WBC (test 0.0 See_Comment [Automat ed code = 7874078797) message] The system which generated this result transmitted reference range : 0.0 - 10.0 /100 WBCs. The refer ence range was not u sed to interpret th is result as normal/abnormal . NRBC x10^3 (test code See_Comment [Auto mated = 9304770557) message] The s ystem which generated this result transmitted reference range : 10*3/?L. The reference range was not used to interpret this result as normal/abnormal . GRAN MAT (NEUT) % 49.3 % (test code = 770-8) IMM GRAN % (test code 0.50 % = 4780795609) LYMPH % (test code = 42.6 % 736-9) MONO % (test code = 6.3 % 5905-5) EOS % (test code = 0.6 % 713-8) BASO % (test code = 0.7 % 706-2) GRAN MAT x10^3(ANC) 5.32 10*3/uL 1.88-7.09 (test code = 0292407660) IMM GRAN x10^3 (test 0.05 10*3/uL 0.00-0.06 code = 1300879715) LYMPH x10^3 (test code 4.58 10*3/uL 1.32-3.29 H = 731-0) MONO x10^3 (test code 0.68 10*3/uL 0.33-0.92 = 742-7) EOS x10^3 (test code = 0.06 10*3/uL 0.03-0.39 711-2) BASO x10^3 (test code 0.07 10*3/uL 0.01-0.07 = 704-7) Lab Interpretation Abnormal (test code = 85695-2) [facility]OL[facility] PANEL (50168)2022-12-14 08:52:54 Test Item Value Reference Range Interpretation Comments NA (test code = 137 mmol/L 135-145 4025571231) K (test code = 3.9 mmol/L 3.5-5.0 8184215743) CL (test code = 103 mmol/L 98-108 5718927095) CO2 TOTAL (test code 25 mmol/L 23-31 = 1376605938) AGAP (test code = 9 2-16 0463199929) BUN (test code = 14 mg/dL 7-23 3322770536) GLUCOSE (test code = 88 mg/dL 70-110 8007202949) CREATININE (test code 0.69 mg/dL 0.50-1.04 = 8343141919) TOTAL BILI (test code 0.4 mg/dL 0.1-1.1 = 9485041436) CALCIUM (test code = 9.5 mg/dL 8.6-10.6 3833340474) T PROTEIN (test code 7.8 g/dL 6.3-8.2 = 3900013527) ALBUMIN (test code = 4.9 g/dL 3.5-5.0 0281444401) ALK PHOS (test code = 59 U/L 34-122 6731512274) ALTv (test code = 19 U/L 5-35 2-6) AST(SGOT) (test code 23 U/L 13-40 = 5011015229) eGFR (test code = 99.9 mL/min/1.73m2 3661542469) ANGI (test code = ANGI) Association of [...] or urine or abnormalities in imaging tests). [facility] 08:52:34 Test Item Value Reference Range Interpretation Comments LIPASE (test code = 9691626885) 70 U/L 0-220 Lab Interpretation (test code = Normal 91827-6) [facility] HospitalD-[id number] 15:45:47 Test Item Value Reference Interpretation Comments Range D-DIMER (test code = See_Comment [Autom ated 2540307570) message] The system which generated this result [...] diagnosis. Lab Interpretation Normal (test code = 36210-6) [facility] HospitalPREG[facility]Y TEST, [id number] 15:07:51 Test Item Value Reference Range Interpretation Comments PREG SERUM (test code Negative = 2067356308) ANGI (test code = ANGI) Less than 10 IU/L. ?If low titer or ectopic is suspected, resubmit specimen in 48-72 hours. [facility]OLIC PANEL (01739)2022-11-03 15:05:35 Test Item Value Reference Range Interpretation Comments NA (test code = 138 mmol/L 135-145 0198781681) K (test code = 4.4 mmol/L 3.5-5.0 6405754780) CL (test code = 104 mmol/L 98-108 7629749104) CO2 TOTAL (test code = 25 mmol/L 23-31 6097398842)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
[2023-07-02 18:46] LABS: Absolute Lymphocytes (CBC) 3.8 K/uL (0.7-4.9); Hematocrit 38.7 % (36.0-45.0); Lymphocytes % 46.4 % (15.3-44.8); MCV 92.5 fL (80-100); MPV 7.2 fL (7.6-11.3); Platelets 403 thou/uL (152-406); RBC Red Blood Cell Count 4.18 M/uL (3.86-4.86)
[2023-07-02] MEDS ORDERED: NA CHLORIDE 0.9% 1,000 ML ONE (18:46)
[2023-07-02 19:02] LABS: Potassium 3.3 mEq/L (3.5-5.1); Troponin High Sensitivity 3.9 pg/mL (<58.9)
--- NOTE | 2023-07-02 19:39 | RAD REPORT ---
EXAM DESCRIPTION: CT - Head Brain Wo Cont - 07/02/2023 7:08 pm CLINICAL HISTORY: syncope COMPARISON: March 2023 TECHNIQUE: Computed axial tomography of the head was obtained. IV contrast was not requested. All CT scans are performed using dose optimization technique as appropriate and may include automated exposure control or mA/KV adjustment according to patient size. FINDINGS: An intracranial bleed is not seen The ventricles are normal in caliber No significant hypodense areas within the brain visualized No extra-axial fluid collection is noted. Fluid within the sinuses/ mastoids is not seen IMPRESSION: No acute intracranial abnormality is seen If patient's symptoms persist MRI of the brain would be recommended
--- NOTE | 2023-07-02 19:45 | RAD REPORT ---
EXAM DESCRIPTION: Felisha Single View07/02/2023 7:01 pm CLINICAL HISTORY: Chest pain COMPARISON: February 2023 FINDINGS: The lungs appear clear of acute infiltrate. The heart is normal size IMPRESSION: No acute abnormalities displayed
[2023-07-02 20:30] LABS: Specific Gravity < 1.005 (1.005-1.030); Urine Bilirubin NEGATIVE (Negative); Urine Blood Negative (Negative); Urine Clarity Clear (Clear); Urine Color Colorless (Yellow); Urine Glucose NEGATIVE (Negative); Urine Protein NEGATIVE (Negative); Urine Urobilinogen Normal (Normal); Urine pH 6.5 (5.0-7.0)
[2023-07-02 20:31] LABS: Specific Gravity < 1.005 (1.005-1.030)
[2023-07-02 20:40] LABS: Barbiturates NEGATIVE (NEGATIVE); Benzodiazepines NEGATIVE (NEGATIVE); Cocaine NEGATIVE (NEGATIVE); METHAMPHETAM NEGATIVE (NEGATIVE); Opiates NEGATIVE (NEGATIVE); Phencyclidine NEGATIVE (NEGATIVE); THC Cannibis NEGATIVE (NEGATIVE)
[2023-07-02] MEDS ORDERED: POTASSIUM 25 MEQ EFFERV TAB ONE (20:46)
[2023-07-02] MEDS ORDERED: ASPIRIN 81 MG CHEWABLE TABLET ONE (20:46)
[2023-07-02 20:49] LABS: Methadone ND (NEGATIVE)
--- NOTE | 2023-07-02 20:56 | EDPHYS ---
Physician Documentation [facility] Name: Lona Marie Age: 33 yrs Sex: Female : 1990 Arrival Date: 07/02/2023 Time: 18:10 Bed 5 Private MD: ED Physician Aj Doe HPI: 07/02 20:24 This 33 yrs old Female presents to ER via Ambulatory with complaints of Chest peg Pain, Dizziness, Near Syncope, Dry mouth. 20:24 The patient or guardian reports chest pain that is located primarily in the anterior peg chest wall, bilaterally. The pain does not radiate. Associated signs and symptoms: Pertinent positives: ANXIETY. The chest pain is described as aching. Duration: The patient or guardian reports multiple episodes, with no pattern. Modifying factors: The symptoms are alleviated by remaining still, the symptoms are aggravated by emotionally stressful situations. Severity of pain: At its worst the pain was mild in the emergency department the pain is unchanged. The patient has experienced similar episodes in the past, multiple times. 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 - Social history:: Smoking status: Patient denies any tobacco usage or history of. Patient/guardian denies using alcohol. - Family history:: not pertinent. ROS: 20:24 Constitutional: Negative for fever, chills, and weight loss, Eyes: Negative for injury, peg pain, redness, and discharge, ENT: Negative for injury, pain, and discharge, Neck: Negative for injury, pain, and swelling, Cardiovascular: Negative for chest pain, palpitations, and edema, Respiratory: Negative for shortness of breath, cough, wheezing, and pleuritic chest pain, Abdomen/GI: Negative for abdominal pain, nausea, vomiting, diarrhea, and constipation, Back: Negative for injury and pain, : Negative for injury, bleeding, discharge, and swelling, MS/Extremity: Negative for injury and deformity, Skin: Negative for injury, rash, and discoloration, Neuro: Negative for headache, weakness, numbness, tingling, and seizure, Psych: Negative for depression, anxiety, suicide ideation, homicidal ideation, and hallucinations, Allergy/Immunology: Negative for hives, rash, and allergies, Endocrine: Negative for neck swelling, polydipsia, polyuria, polyphagia, and marked weight changes, Hematologic/Lymphatic: Negative for swollen nodes, abnormal bleeding, and unusual bruising, Exam: 20:24 Constitutional: This is a well developed, well nourished patient who is awake, alert, peg and in no acute distress. Head/Face: Normocephalic, atraumatic. Eyes: Pupils equal round and reactive to light, extra-ocular motions intact. Lids and lashes normal. Conjunctiva and sclera are non-icteric and not injected. Cornea within normal limits. Periorbital areas with no swelling, redness, or edema. ENT: Nares patent. No nasal discharge, no septal abnormalities noted. Tympanic membranes are normal and external auditory canals are clear. Oropharynx with no redness, swelling, or masses, exudates, or evidence of obstruction, uvula midline. Mucous membranes moist. Neck: Trachea midline, no thyromegaly or masses palpated, and no cervical lymphadenopathy. Supple, full range of motion without nuchal rigidity, or vertebral point tenderness. No Meningismus. Chest/axilla: Normal chest wall appearance and motion. Nontender with no deformity. No lesions are appreciated. Cardiovascular: Regular rate and rhythm with a normal S1 and S2. No gallops, murmurs, or rubs. Normal PMI, no JVD. No pulse deficits. Respiratory: Lungs have equal breath sounds bilaterally, clear to auscultation and percussion. No rales, rhonchi or wheezes noted. No increased work of breathing, no retractions or nasal flaring. Abdomen/GI: Soft, non-tender, with normal bowel sounds. No distension or tympany. No guarding or rebound. No evidence of tenderness throughout. Back: No spinal tenderness. No costovertebral tenderness. Full range of motion. Skin: Warm, dry with normal turgor. Normal color with no rashes, no lesions, and no evidence of cellulitis. MS/ Extremity: Pulses equal, no cyanosis. Neurovascular intact. Full, normal range of motion. Neuro: Awake and alert, GCS 15, oriented to person, place, time, and situation. Cranial nerves II-XII grossly intact. Motor strength 5/5 in all extremities. Sensory grossly intact. Cerebellar exam normal. Normal gait. Psych: Awake, alert, with orientation to person, place and time. Behavior, mood, and affect are within normal limits. 20:24 ECG was reviewed by the Attending Physician. 20:55 Musculoskeletal/extremity: DVT Exam: No signs of deep vein thrombosis. no pain, no peg swelling, no tenderness, negative Homans' sign noted on exam, no appreciated bluish discoloration, no erythema, no increased warmth, Vital Signs: 18:26 BP 153 / 102; Pulse 94; Resp 18; Temp 98.5(TE); Pulse Ox 100% on R/A; Weight 67.59 kg; tm6 Height 5 ft. 3 in. ; Pain 0/10; 20:08 BP 131 / 88; Pulse 73; Resp 16; Pulse Ox 100% on R/A; jb4 20:43 BP 137 / 81; Pulse 84; Resp 16; Pulse Ox 100% on R/A; jb4 18:26 Body Mass Index 26.39 (67.59 kg, 160.02 cm) [facility] 18:26 Pain Scale: Adult [facility] MDM: 18:28 Patient medically screened. peg 20:26 Differential diagnosis: abnormal EKG, acute myocardial infarction, acute pericarditis, peg anxiety, coronary artery disease chest wall pain, cholecystitis, Cholelithiasis costochondritis, esophagitis, gastritis, gastroesophageal reflux disease (GERD), hiatal hernia, Sara-Quinn syndrome, pancreatitis, peptic ulcer disease, pleurisy, pneumonia, pneumothorax, pulmonary embolus, stable angina, thoracic aortic disection, unstable angina. HEART Score: History: Slightly Suspicious (0), ECG: Normal (0), Age: < or = 45 years (0), Risk Factors: No Risk Factors Known (0), Troponin: < or = 1 x Normal Limit (0), Total Score = 0. DOROTHEA Risk Score: TOTAL SCORE = 0. Data reviewed: vital signs, nurses notes, lab test result(s), EKG, radiologic studies, plain films. Consideration of Admission/Observation Escalation of care including admission/observation considered. I considered the following discharge prescriptions or medication management in the emergency department Medications were administered in the Emergency Department. See MAR. Independent interpretation of the following test(s) in the Emergency Department EKG: See my EKG interpretation above. Test considered but Not performed: Ultrasound NO 2 D ECHO. Historians other than the Patient: PT GOOD HISTORIAN. Care significantly affected by the following chronic conditions: SEE PATRICIA. Counseling: I had a detailed discussion with the patient and/or guardian regarding the historical points, exam findings, and any diagnostic results supporting the discharge/admit diagnosis, lab results, radiology results, the need for outpatient follow up, for definitive care, a field artillery targeting technician, a family practitioner. 07/02 18:28 Order name: Basic Metabolic Panel; Complete Time: 20:23 [facility] 07/02 18:28 Order name: CBC with Diff; Complete Time: 20:23 [facility] 07/02 18:28 Order name: Troponin HS; Complete Time: 20:23 [facility] 07/02 18:30 Order name: Lipase; Complete Time: 20:23 [facility] 07/02 18:30 Order name: Urinalysis w/ reflexes; Complete Time: 20:36 [facility] 07/02 18:30 Order name: PREGU; Complete Time: 20:55 [facility] 07/02 18:30 Order name: UDS; Complete Time: 20:55 [facility] 07/02 18:28 Order name: XRAY Chest (1 view); Complete Time: 20:23 [facility] 07/02 18:30 Order name: CT Head Brain wo Cont; Complete Time: 20:23 [facility] 07/02 18:28 Order name: EKG; Complete Time: 18:29 [facility] 07/02 18:28 Order name: Cardiac monitoring; Complete Time: 18:30 [facility] 07/02 18:28 Order name: EKG - Nurse/Tech; Complete Time: 18:30 [facility] 07/02 18:28 Order name: IV Saline Lock; Complete Time: 18:30 [facility] 07/02 18:28 Order name: Labs collected and sent; Complete Time: 18:30 [facility] 07/02 18:28 Order name: O2 Per Protocol; Complete Time: 18:30 tm6 07/02 18:28 Order name: O2 Sat Monitoring; Complete Time: 18:30 tm6 EC:24 Rate is 81 beats/min. Rhythm is regular. QRS [place] is Normal. OR interval is normal. QRS peg interval is normal. QT interval is normal. No Q waves. T waves are Normal. No ST changes noted. Clinical impression: NSR w/ Non-specific ST/T Changes and No evidence of ischemia. Interpreted by me. Reviewed by me. Administered Medications: 18:38 Drug: NS 0.9% IV 1000 ml IV at 1 bolus Per protocol; 1000 mL bolus Route: IV; Rate: 1 tm6 bolus; Site: right antecubital; 20:40 Drug: Potassium PO Effervescent Tablet 50 mEq PO once; dissolve in 4 ounces of water or jb4 juice Route: PO; 20:41 Drug: Aspirin PO Chewable Tablet 162 mg PO once Route: PO; jb4 Disposition Summary: 07/02/23 20:55 Discharge Ordered Notes: Location: Home peg Problem: new peg Symptoms: have improved peg Condition: Stable peg Diagnosis - Chest pain, unspecified peg - Anxiety disorder, unspecified peg - Dizziness and giddiness peg - Hypokalemia peg Followup: peg - With: Private Physician - When: 2 - 3 days - Reason: Recheck today's complaints, Continuance of care, Re-evaluation by your physician Followup: peg - With: Alan Owen MD - When: 2 - 3 days - Reason: Recheck today's complaints, Re-evaluation by your physician Discharge Instructions: - Discharge Summary Sheet peg - Panic Attack peg - Nonspecific Chest Pain, Adult peg - Potassium Content of Foods peg - Dizziness peg - Nonspecific Chest Pain, Adult, Htbx-zx-Wdji peg - Panic Attack, Vzkc-mh-Zdhs peg - Aspirin and Your Heart peg - Hypokalemia peg - Supporting Someone With Anxiety peg Forms: - Medication Reconciliation Form peg - Thank You Letter peg - Antibiotic Education peg - Prescription Opioid Use peg - Patient Portal Instructions peg - Leadership Thank You Letter peg Prescriptions: - Hydroxyzine HCl 25 mg Oral Tablet - take 1 tablet ORAL route every 6 hours As needed; 30 tablet; Refills: 0, peg Product Selection Permitted Signatures: Dispatcher [employer] EDAj Khan MD MD cha Bryson, James, HO RN jb4 Bobbi Skinner, HO RN tm6
--- NOTE | 2023-07-02 20:56 | ER ---
Nurse's Notes [facility] Name: Lona Marie Age: 33 yrs Sex: Female : 1990 Arrival Date: 07/02/2023 Time: 18:10 Bed 5 Private MD: Diagnosis: Chest pain, unspecified;Anxiety disorder, unspecified;Dizziness and giddiness;Hypokalemia Presentation: 07/02 18:26 Chief complaint: Patient states: Chest tightness X 3 hours ago. History of anxiety. tm6 Swabbed for covid, flu, rsv yesterday - rsv positive. C/O dizziness, weak, dry mouth, vision is foggy. Coronavirus screen: At this time, the client does not indicate any symptoms associated with coronavirus-19. Ebola Screen: No symptoms or risks identified at this time. Initial Sepsis Screen: Does the patient meet any 2 criteria? No. Patient's initial sepsis screen is negative. Does the patient have a suspected source of infection? No. Patient's initial sepsis screen is negative. Risk Assessment: Do you want to hurt yourself or someone else? Patient reports no desire to harm self or others. Onset of symptoms was July 02, 2023. 18:26 Method Of Arrival: Ambulatory tm6 18:26 Acuity: SMITH 3 tm6 Triage Assessment: 18:28 General: Appears in no apparent distress. uncomfortable, Behavior is cooperative, tm6 anxious. Pain: Denies pain. EENT: No signs and/or symptoms were reported regarding the EENT system. Neuro: Level of Consciousness is awake, alert, obeys commands, Oriented to person, place, time, situation. Cardiovascular: Capillary refill < 3 seconds Patient's skin is warm and dry. Respiratory: Airway is patent Respiratory effort is even, unlabored. GI: Abdomen is round non-distended. : No signs and/or symptoms were reported regarding the genitourinary system. Derm: No signs and/or symptoms reported regarding the dermatologic system. Musculoskeletal: No signs and/or symptoms reported regarding the musculoskeletal system. 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 - Social history:: Smoking status: Patient denies any tobacco usage or history of. Patient/guardian denies using alcohol. - Family history:: not pertinent. Screenin:17 [facility] ED Fall Risk Assessment (Adult) History of falling in the last 3 months, pf1 including since admission No falls in past 3 months (0 pts) Confusion or Disorientation No (0 pts) Intoxicated or Sedated No (0 pts) Impaired Gait No (0 pts) Mobility Assist Device Used No (0 pt) Altered Elimination No (0 pt) Score/Fall Risk Level 0 - 2 = Low Risk Oriented to surroundings, Maintained a safe environment, Educated pt \\T\\ family on fall prevention, incl call for assistance when getting out of bed, Assessed \\T\\ reinforced patient's understanding of fall precautions, Provided non-skid footwear, Hourly rounding (assess needs \\T\\ fall precautionary measures) done, Used ambulatory aids as needed (educated on \\T\\ assisted with), Used gait belt as appropriate. Abuse screen: Denies threats or abuse. Nutritional screening: No deficits noted. Tuberculosis screening: No symptoms or risk factors identified. Assessment: 18:34 Reassessment: Pt denies swabs - states "I just got swabbed yesterday, I have the tm6 results in my purse.". 20:08 Reassessment: Patient appears in no apparent distress at this time. Patient and/or jb4 family updated on plan of care and expected duration. Pain level reassessed. Patient is alert, oriented x 3, equal unlabored respirations, skin warm/dry/pink. 20:43 Reassessment: Patient appears in no apparent distress at this time. Patient and/or jb4 family updated on plan of care and expected duration. Pain level reassessed. Patient is alert, oriented x 3, equal unlabored respirations, skin warm/dry/pink. Vital Signs: 18:26 BP 153 / 102; Pulse 94; Resp 18; Temp 98.5(TE); Pulse Ox 100% on R/A; Weight 67.59 kg; tm6 Height 5 ft. 3 in. ; Pain 0/10; 20:08 BP 131 / 88; Pulse 73; Resp 16; Pulse Ox 100% on R/A; jb4 20:43 BP 137 / 81; Pulse 84; Resp 16; Pulse Ox 100% on R/A; jb4 18:26 Body Mass Index 26.39 (67.59 kg, 160.02 cm) tm6 18:26 Pain Scale: Adult tm6 ED Course: 18:11 Patient arrived in ED. im 18:28 Triage completed. tm6 18:28 Aj Doe MD is Attending Physician. peg 18:28 Arm band placed on right wrist. EKG completed in triage. Results shown to MD. tm6 18:30 Basic Metabolic Panel Sent. tm6 18:30 CBC with Diff Sent. tm6 18:30 Troponin HS Sent. tm6 18:38 Inserted saline lock: 20 gauge in right antecubital area, using aseptic technique. tm6 Blood collected. 19:00 Patient has correct armband on for positive identification. Bed in low position. Call pf1 light in reach. 19:00 Client placed on continuous cardiac and pulse oximetry monitoring. NIBP monitoring pf1 applied. panel monitor on. Pulse ox on. 19:02 XRAY Chest (1 view) In Process Unspecified. EDMS 19:09 CT Head Brain wo Cont In Process Unspecified. EDMS 19:50 Tico Larry, HO is Primary Nurse. jb4 20:55 Alan Owen MD is Referral Physician. peg 21:17 No provider procedures requiring assistance completed. IV discontinued, intact, pf1 bleeding controlled, No redness/swelling at site. Pressure dressing applied. Patient maintains SpO2 saturation greater than 95% on room air. 21:18 Provided Education on: prescription . pf1 Administered Medications: 18:38 Drug: NS 0.9% IV 1000 ml IV at 1 bolus Per protocol; 1000 mL bolus Route: IV; Rate: 1 tm6 bolus; Site: right antecubital; 20:40 Drug: Potassium PO Effervescent Tablet 50 mEq PO once; dissolve in 4 ounces of water or jb4 juice Route: PO; 20:41 Drug: Aspirin PO Chewable Tablet 162 mg PO once Route: PO; jb4 Medication: 21:19 VIS not applicable for this client. pf1 Outcome: 20:55 Discharge ordered by . peg 21:18 Discharged to home ambulatory, pf1 21:18 Condition: improved 21:18 Discharge instructions given to patient, Instructed on discharge instructions, follow up and referral plans. Demonstrated understanding of instructions, follow-up care, medications, Prescriptions given X 1, 21:20 Patient left the ED. pf1 Signatures: Dispatcher [employer] EDSC Aj Doe MD MD cha Bryson, James, RN RN jb4 Sara Hendrickson RN RN pf1 Yadi Hoffmann Tawney RN RN tm6
[2023-07-02 21:45] VITALS: TEMP 98.5; O2SAT 100
[2023-07-02 21:47] VITALS: BP 137/81
--- NOTE | 2023-07-06 08:01 | EKG ---
Test Date: 2023-07-02 Test Time: 18:30:11 Clinical Pharmacy Technician: T O MEASUREMENT RESULTS: Intervals: Rate: 81 TN: 138 QRSD: 70 QT: 356 QTc: 413 [place]: P: 69 TN: 138 QRS: 87 T: 69 INTERPRETIVE STATEMENTS: Normal sinus rhythm Normal ECG Compared to ECG 02/07/2023 03:34:51 Sinus arrhythmia no longer present Electronically Signed On 07-06-23 07:54:00 CDT by Alan Owen
== END 2023-07-02 21:20 | disposition home or self-care (01) ==
LOC: ER 18:10
DX: R07.89 Other chest pain (principal); F41.9 Anxiety disorder, unspecified; E87.6 Hypokalemia; R42 Dizziness and giddiness; Z88.0 Allergy status to penicillin; Z88.1 Allergy status to other antibiotic agents; Z88.5 Allergy status to narcotic agent; Z88.8 Allergy status to other drugs, medicaments and biological substances; Z91.048 Other nonmedicinal substance allergy status
CPT/HCPCS: 93005; 85025; 80048; 36415; 81025; 81003; 84484; 83690; 80307; 70450; 71045; 99285; J7030

== ENCOUNTER 2023-07-06 10:29 | Emergency (ER) | payer OTHER ==
--- OUTSIDE RECORDS SUMMARY | 2023-07-06 10:52 | XMS REPORT | Continuity of Care Document ---
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 gabapentin 2022-09- No gabapentin Univers 300 mg 0-05 10-05 300 mg ity of capsule 11:06: 00:00 capsule [place] 23 :00 [facility] Branch gabapentin 2022-09- No gabapentin Univers 300 mg 0-05 10-05 300 mg ity of capsule 11:06: 00:00 capsule [place] 23 :00 [facility] adalimumab 2022-09 Yes 40mg inject 1 Uni vers (HUMIRA) 40 0-05 Syringe ity o f mg/0.8 mL 10:54: under the Zay as injection 07 skin. [facility] Branch ibuprofen 2022-09 Yes ibuprofen Uni vers 800 mg 0-05 800 mg ity of tablet 10:54: tablet [address] [place] [address] levETIRAcet 2022-09 Yes TWICE Unive rs am 500 mg 0-05 DAILY. ity of tablet 10:54: [address] [place] [address] famotidine 2022-09 Yes famotidine U nivers 20 mg 0-05 20 mg ity of tablet 10:54: tablet [address] [place] [address] clonazePAM 2022-09 Yes clonazepam U nivers 0.5 [...] 800 mg ity of tablet 10:54: tablet [address] levETIRAcet 2022-09 Yes TWICE Unive rs am 500 mg 0-05 DAILY. ity of tablet 10:54: [address] [place] [address] famotidine 2022-09 Yes famotidine U nivers 20 mg 0-05 20 mg ity of tablet 10:54: tablet [address] clonazePAM 2022-09 Yes clonazepam U nivers 0.5 mg 0-05 0.5 mg ity of tablet 10:54: tablet [place] [address] TAKE 1 Medical TABLET BY Branch MOUTH [...] 800 mg ity of tablet 10:54: tablet [address] [place] [address] levETIRAcet 2022-09 Yes TWICE Unive rs am 500 mg 0-05 DAILY. ity of tablet 10:54: [facility] famotidine 2022-09 Yes famotidine U nivers 20 mg 0-05 20 mg ity of tablet 10:54: tablet [address] [place] [address] clonazePAM 2022-09 Yes clonazepam U nivers 0.5 [...] 800 mg ity of tablet 10:54: tablet [address] [place] [address] levETIRAcet 2022-09 Yes TWICE Unive rs am 500 mg 0-05 DAILY. ity of tablet 10:54: [address] [place] [address] famotidine 2022-09 Yes famotidine U nivers 20 mg 0-05 20 mg ity of tablet 10:54: tablet [address] clonazePAM 2022-09 Yes clonazepam U nivers 0.5 mg 0-05 0.5 mg ity of tablet 10:54: tablet [place] [address] TAKE 1 Medical TABLET BY Branch MOUTH [...] 800 mg ity of tablet 10:54: tablet [address] [place] [address] Branch levETIRAcet 2022-09 Yes TWICE Unive rs am 500 mg 0-05 DAILY. ity of tablet 10:54: [facility] famotidine 2022-09 Yes famotidine U nivers 20 mg 0-05 20 mg ity of tablet 10:54: tablet [address] [place] [address] clonazePAM 2022-09 Yes clonazepam U nivers 0.5 [...] 800 mg ity of tablet 10:54: tablet [address] [place] [address] levETIRAcet 2022-09 Yes TWICE Unive rs am 500 mg 0-05 DAILY. ity of tablet 10:54: [address] [place] [address] famotidine 2022-09 Yes famotidine U nivers 20 mg 0-05 20 mg ity of tablet 10:54: tablet [address] [place] [address] clonazePAM 2022-09 Yes clonazepam U nivers 0.5 mg 0-05 0.5 mg ity of tablet 10:54: tablet [place] [address] TAKE 1 Medical TABLET BY Branch MOUTH [...] 800 mg ity of tablet 10:54: tablet [address] [place] [address] levETIRAcet 2022-09 Yes TWICE Unive rs am 500 mg 0-05 DAILY. ity of tablet 10:54: [address] [place] [address] famotidine 2022-09 Yes famotidine U nivers 20 mg 0-05 20 mg ity of tablet 10:54: tablet [address] clonazePAM 2022-09 Yes clonazepam U nivers [...] 800 mg ity of tablet 10:54: tablet [address] levETIRAcet 2022-09 Yes TWICE Unive rs am 500 mg 0-05 DAILY. ity of tablet 10:54: [address] famotidine 2022-09 Yes famotidine U nivers 20 mg 0-05 20 mg ity of tablet 10:54: tablet [address] clonazePAM 2022-09 Yes clonazepam U nivers 0.5 mg 0-05 0.5 mg ity of tablet 10:54: tablet [place] [address] TAKE 1 Medical TABLET BY Branch MOUTH [...] 800 mg ity of tablet 10:54: tablet [address] levETIRAcet 2022-09 Yes TWICE Unive rs am 500 mg 0-05 DAILY. ity of tablet 10:54: [address] [place] [address] famotidine 2022-09 Yes famotidine U nivers 20 mg 0-05 20 mg ity of tablet 10:54: tablet [address] clonazePAM 2022-09 Yes clonazepam U nivers [...] 800 mg ity of tablet 10:54: tablet [facility] Branch levETIRAcet 2022-09 Yes TWICE Unive rs am 500 mg 0-05 DAILY. ity of tablet 10:54: Medical Branch famotidine 2022-09 Yes famotidine U nivers 20 mg 0-05 20 mg ity of tablet 10:54: tablet Medical Branch clonazePAM 2022-09 Yes clonazepam U nivers 0.5 [...] ical ion Branch aerosol inhaler azithromyci Yes [id number] Take two Univers n [id number] [id number] on first ity of (ZITHROMAX 00:00: day, take [place] Z-OK) 250 00 one a day Medi shanice mg tablet afterwards Bran ch azelastine Yes [id number] 1{spray Use 1 Univers 137 mcg 6-27 [id number] } [place] in ity of (0.1 %) 00:00: each [place] nasal spray 00 nostril in Mo dical the Branch morning and 1 [place] in the evening. Use in each nostril as directed azithromyci Yes [id number] Take two Univers n 6-27 [id number] on first ity of (ZITHROMAX 00:00: day, take [place] Z-OK) 250 00 one a day Medi shanice mg tablet afterwards Bran ch azelastine 2023-0 Yes [id number] 1{spray Use 1 Univers 137 mcg 6-27 [id number] } [place] in ity of (0.1 %) 00:00: each [place] nasal spray 00 nostril in [facility] the Branch morning and 1 [place] in the evening. Use in each nostril as directed azithromyci 2023-0 Yes [id number] Take two Univers n 6-27 [id number] on first ity of (ZITHROMAX 00:00: day, take [place] Z-OK) 250 00 one a day Medi shanice mg tablet afterwards Bran ch azelastine 3-0 Yes [id number] 1{spray Use 1 Univers 137 mcg 6-27 [id number] } [place] in ity of (0.1 %) 00:00: each [place] nasal spray 00 nostril in [facility] [place] morning and 1 [place] in the evening. Use in each nostril as directed azithromyci 3-0 Yes [id number] Take two Univers n 6-27 [id number] on first ity of (ZITHROMAX 00:00: day, take [place] Z-OK) 250 00 one a day Medi shanice mg tablet afterwards Bran ch azelastine 3-0 Yes [id number] 1{spray Use 1 Univers 137 mcg 6-27 [id number] } [place] in ity of (0.1 %) 00:00: each [place] nasal spray 00 nostril in [facility] the Branch morning and 1 [place] in the evening. Use in each nostril as directed azithromyci 3-0 Yes [id number] Take two Univers n 6-27 [id number] on first ity of (ZITHROMAX 00:00: day, take [place] Z-OK) 250 00 one a day Medi shanice mg tablet afterwards Bran ch azelastine 2023-0 Yes [id number] 1{spray Use 1 Univers 137 mcg 6-27 [id number] } [place] in ity of (0.1 %) 00:00: each [place] nasal spray 00 nostril in Me dical the Branch morning and 1 [place] in the evening. Use in each nostril as directed azithromyci 2023-0 Yes [id number] Take two Univers n 6-27 [id number] on first ity of (ZITHROMAX 00:00: day, take [place] Z-OK) 250 00 one a day Medi shanice mg tablet afterwards Bran ch azelastine 2023-0 Yes [id number] 1{spray Use 1 Univers 137 mcg 6-27 [id number] } [place] in ity of (0.1 %) 00:00: each [place] nasal spray [address] [facility] the Branch morning and 1 [place] in the evening. Use in each nostril as directed azithromyci 2023-0 Yes [id number] Take two Univers n 6-27 [id number] on first ity of (ZITHROMAX 00:00: day, take [place] Z-OK) 250 00 one a day Medi shanice mg tablet afterwards Bran ch azelastine 2023-0 Yes [id number] 1{spray Use 1 Univers 137 mcg 6-27 110401 } [place] ity of (0.1 %) 00:00: each [place] nasal spray [address] [facility] Branch morning and 1 [place] in the evening. Use in each nostril as directed azithromyci 3-0 Yes [id number] Take two Univers n 6-27 [id number] on first ity of (ZITHROMAX 00:00: day, take [place] Z-OK) 250 00 one a day Medi shanice mg tablet afterwards Bran ch azelastine 2023-0 Yes [id number] 1{spray Use 1 Univers 137 mcg 6-27 [id number] } [place] in ity of (0.1 %) 00:00: each [place] nasal spray [address] [facility] Branch morning and 1 [place] in the evening. Use in each nostril as directed azithromyci 2023-0 Yes [id number] Take two Univers n 6-27 [id number] on first ity of (ZITHROMAX 00:00: day, take [place] Z-OK) 250 00 one a day Medi shanice mg tablet afterwards Bran ch azelastine 2023-0 Yes [id number] 1{spray Use 1 Univers 137 mcg 6-27 881080 } [place] in ity of (0.1 %) 00:00: each [place] nasal spray 00 nostril in Me dical the Branch morning and 1 [place] in the evening. Use in each nostril as directed azithromyci 3-0 Yes [id number] Take two Univers n 6-27 [id number] on first ity of (ZITHROMAX 00:00: day, take [place] Z-OK) 250 00 one a day Medi shanice mg tablet afterwards Bran ch azelastine 2023-0 Yes [id number] 1{spray Use 1 Univers 137 mcg 6-27 [id number] } [place] in ity of (0.1 %) 00:00: each [place] nasal spray 00 nostril in Me dical the Branch morning and 1 [place] in the evening. Use in each nostril as directed azelastine 2023-0 Yes [id number] 1{spray Use 1 Univers 137 mcg 6-27 [id number] } [place] in ity of (0.1 %) 00:00: each [place] nasal spray 00 nostril in Me dical the Branch morning and 1 [place] in the evening. Use in each nostril as directed azelastine 2023-0 Yes [id number] 1{spray Use 1 Univers 137 mcg 6-27 [id number] } [place] in ity of (0.1 %) 00:00: each [place] nasal spray 00 nostril in Me dical the Branch morning and 1 [place] in the evening. Use in each nostril as directed azelastine 2023-0 Yes [id number] 1{spray Use 1 Univers 137 mcg 6-27 [id number] } [place] in ity of (0.1 %) 00:00: each [place] nasal spray 00 nostril in Me dical the Branch morning and 1 [place] in the evening. Use in each nostril as directed azelastine 2023-0 Yes [id number] 1{spray Use 1 Univers 137 mcg 6-27 [id number] } [place] in ity of (0.1 %) 00:00: each [place] nasal spray 00 nostril in Me dical the Branch morning and 1 [place] in the evening. Use in each nostril as directed azelastine 2023-0 Yes [id number] 1{spray Use 1 Univers 137 mcg 6-27 [id number] } [place] in ity of (0.1 %) 00:00: each [place] nasal spray 00 nostril in Me dical the Branch morning and 1 [place] in the evening. Use in each nostril as directed azelastine 2023-0 Yes [id number] 1{spray Use 1 Univers 137 mcg 6-27 [id number] } [place] in ity of (0.1 %) 00:00: each [place] nasal spray 00 nostril in Me dical the Branch morning and 1 [place] in the evening. Use in each nostril as directed azelastine 2023-0 Yes [id number] 1{spray Use 1 Univers 137 mcg 6-27 [id number] } [place] in ity of (0.1 %) 00:00: each [place] nasal spray 00 nostril in Me dical the Branch morning and 1 [place] in the evening. Use in each nostril as directed azelastine 2023-0 Yes [id number] 1{spray Use 1 Univers 137 mcg 6-27 000435 } [place] in ity of (0.1 %) 00:00: each [place] nasal spray 00 nostril in Me dical the Branch morning and 1 [place] in the evening. Use in each nostril as directed azelastine 2023-0 Yes [id number] 1{spray Use 1 Univers 137 mcg 6-27 [id number] } [place] in ity of (0.1 %) 00:00: each [place] nasal spray 00 nostril in Me dical the Branch morning and 1 [place] in the evening. Use in each nostril as directed azelastine 2023-0 Yes [id number] 1{spray Use 1 Univers 137 mcg 6-27 [id number] } [place] in ity of (0.1 %) 00:00: each [place] nasal spray 00 nostril in Me dical the Branch morning and 1 [place] in the evening. Use in each nostril as directed azithromyci 2022-0 3- No [id number] Take two Univers n 03-02 [id number] on first ity of (ZITHROMAX 00:00: 00:00 day, take [place] Z-OK) 250 00 :00 one a day Medi shanice mg tablet afterwards Bran ch azithromyci 3-0 3- No [id number] Take two Univers n 03-02 [id number] on first ity of (ZITHROMAX 00:00: 00:00 day, take [place] Z-OK) 250 00 :00 one a day Medi shanice mg tablet afterwards Bran ch morpHINE (4 2022- No 4mg 4 mg, Slow Univers mg/mL) 01-21 IV Push, ity of injection 4 23:45: 23:08 ONCE, 1 [place] mg 00 :00 dose, On Medical [facility] Branch 01/21/23 at 1845, Routine ondansetron 2022- No 4mg 4 mg, Slow Univers (ZOFRAN 01-21 IV Push, ity of (PF)) 23:00: 23:08 ONCE, 1 [place] injection 4 00 :00 dose, On Medi shanice mg [facility] 01/21/23 at 1800, LUPE NaCl 0.9% 2022- No 1000mL at 999 Uni vers (NS) IV 01-21 mL/hr, ity of infusion 21:30: 23:45 Intravenou [place] 1,000 mL 00 :00 s, ONCE, 1 Medic al dose, On Branch [facility] 01/21/23 at 1630, Routine FENTanyl PF 2022- No 50ug 50 mcg, Un tra[place] (SUBLIMAZE 01-21 Slow IV ity o f (PF)) 21:15: 20:56 Push, [place] injection 00 :00 ONCE, 1 Medical 50 mcg dose, On [facility] 01/21/23 at 1615, Routine iopamidol 2022- No [id number] 50mL 50 mL, Univers (ISOVUE 01-21 Intravenou ity o f 370-500 mL) 21:00: 21:02 s, ONCE, 1 [place] injection 00 :00 dose, On Medica l 50 mL [facility] 01/21/23 at 1600, Routine ondansetron 2022- No 4mg 4 mg, Slow Univers (ZOFRAN 01-21 IV Push, ity of (PF)) 20:30: 20:55 ONCE, 1 [place] injection 4 00 :00 dose, On Medi shanice mg [facility] 01/21/23 at 1530, LUPE sucralfate 2022- No [id number] 1g Take 1 Univers 1 gram 01-21 tablet by ity of tablet 00:00: 04:59 mouth [place] 00 :00 before Medical meals and Branch at bedtime for 14 days. proMETHazin 0 2022- No 6.25mg 6.25 mg, [...] Take 1 Univ ers XL 300 mg 01-15 tablet by ity of 24 hr 12:48: 00:00 mouth. [place] tablet 46 :00 Medical Branch maalox:diph 2022-0 2022- No 15mL 15 mL, Uni vers enhydrAMINE 01-15 Oral, ity of :lidocaine 11:00: 10:58 ONCE, 1 [place] 2 % viscous 00 :00 dose, On Medi shanice 1:1:1 Fri Branch ([facility] 01/15/23 at [facility]) 0600, oral Routine suspension 15 mL maalox:diph 2022-0 Yes [id number] 15mL Take 15 mL Univers enhydrAMINE 5-12 by mouth ity of :lidocaine 00:00: as needed [place] 2 % viscous 00 for Oral Medi shanice 1:1:1 mucositis Branch (EPIGASTRI C PAIN). ondansetron 2022-0 Yes [id number] 4mg Take 1 Univers (ZOFRAN) 4 5-12 tablet by ity of mg tablet 00:00: mouth [place] 00 every 8 Medical (eight) Branch hours as needed for Nausea and Vomiting (N/V). maalox:diph 2022-0 Yes [id number] 15mL Take 15 mL Univers enhydrAMINE 5-12 by mouth ity of :lidocaine 00:00: as needed [place] 2 % viscous 00 for Oral Medi shanice 1:1:1 mucositis Branch (EPIGASTRI C PAIN). ondansetron 2022-0 Yes [id number] 4mg Take 1 Univers (ZOFRAN) 4 5-12 tablet by ity of mg tablet 00:00: mouth [place] 00 every 8 Medical (eight) Branch hours as needed for Nausea and Vomiting (N/V). proMETHazin 2022-0 Yes [id number] 25mg Take 1 Univers e 25 mg 5-12 tablet by ity of tablet 00:00: mouth [place] 00 every 6 Medical (six) Branch hours as needed for Nausea and Vomiting (N/V). sucralfate 2022-0 Yes [id number] 1g Take 1 U nivers 1 gram 5-12 tablet by ity of tablet 00:00: mouth [place] 00 before Medical meals and Branch at bedtime. esomeprazol 2022-0 Yes [id number] 40mg Take 1 Univers e (NEXIUM) 5-12 capsule by ity of 40 mg 00:00: mouth [place] capsule 00 daily with Medica l breakfast. Branch maalox:diph 2022-0 Yes [id number] 15mL Take 15 mL Univers enhydrAMINE 5-12 by mouth ity of :lidocaine 00:00: as needed [place] 2 % viscous 00 for Oral Medi shanice 1:1:1 mucositis Branch (EPIGASTRI C PAIN). ondansetron 3-0 Yes [id number] 4mg Take 1 Univers (ZOFRAN) 4 5-12 tablet by ity of mg tablet 00:00: mouth [place] 00 every 8 Medical (eight) Branch hours as needed for Nausea and Vomiting (N/V). proMETHazin 2023-0 Yes [id number] 25mg Take 1 Univers e 25 mg 5-12 tablet by ity of tablet 00:00: mouth [place] 00 every 6 Medical (six) Branch hours as needed for Nausea and Vomiting (N/V). sucralfate 2023-0 Yes [id number] 1g Take 1 U nivers 1 gram 5-12 tablet by ity of tablet 00:00: mouth [place] 00 before Medical meals and Branch at bedtime. esomeprazol 3-0 Yes [id number] 40mg Take 1 Univers e (NEXIUM) 5-12 capsule by ity of 40 mg 00:00: mouth [place] capsule 00 daily with Medica l breakfast. Branch maalox:diph 3-0 Yes [id number] 15mL Take 15 mL Univers enhydrAMINE 5-12 by mouth ity of :lidocaine 00:00: as needed [place] 2 % viscous 00 for Oral Medi shanice 1:1:1 mucositis Branch (EPIGASTRI C PAIN). proMETHazin 3-0 Yes [id number] 25mg Take 1 Univers e 25 mg 5-12 tablet by ity of tablet 00:00: mouth [place] 00 every 6 Medical (six) Branch hours as needed for Nausea and Vomiting (N/V). sucralfate 3-0 Yes [id number] 1g Take 1 U nivers 1 gram 5-12 tablet by ity of tablet 00:00: mouth [place] 00 before Medical meals and Branch at bedtime. esomeprazol 2023-0 Yes [id number] 40mg Take 1 Univers e (NEXIUM) 5-12 capsule by ity of 40 mg 00:00: mouth [place] capsule 00 daily with Medica l breakfast. Branch maalox:diph 3-0 Yes [id number] 15mL Take 15 mL Univers enhydrAMINE 5-12 by mouth ity of :lidocaine 00:00: as needed [place] 2 % viscous 00 for Oral Medi shanice 1:1:1 mucositis Branch (EPIGASTRI C PAIN). proMETHazin 2023-0 Yes [id number] 25mg Take 1 Univers e 25 mg 5-12 tablet by ity of tablet 00:00: mouth [place] 00 every 6 Medical (six) Branch hours as needed for Nausea and Vomiting (N/V). sucralfate 2023-0 Yes [id number] 1g Take 1 U nivers 1 gram 5-12 tablet by ity of tablet 00:00: mouth [place] 00 before Medical meals and Branch at bedtime. esomeprazol 2023-0 Yes [id number] 40mg Take 1 Univers e (NEXIUM) 5-12 capsule by ity of 40 mg 00:00: mouth [place] capsule 00 daily with Medica l breakfast. Branch maalox:diph 2023-0 Yes [id number] 15mL Take 15 mL Univers enhydrAMINE 5-12 by mouth ity of :lidocaine 00:00: as needed [place] 2 % viscous 00 for Oral Medi shanice 1:1:1 mucositis Branch (EPIGASTRI C PAIN). proMETHazin 2023-0 Yes [id number] 25mg Take 1 Univers e 25 mg 5-12 tablet by ity of tablet 00:00: mouth [place] 00 every 6 Medical (six) Branch hours as needed for Nausea and Vomiting (N/V). sucralfate 2023-0 Yes [id number] 1g Take 1 U nivers 1 gram 5-12 tablet by ity of tablet 00:00: mouth [place] 00 before Medical meals and Branch at bedtime. esomeprazol 2023-0 Yes [id number] 40mg Take 1 Univers e (NEXIUM) 5-12 capsule by ity of 40 mg 00:00: mouth [place] capsule 00 daily with Medica l breakfast. Branch maalox:diph 2023-0 Yes [id number] 15mL Take 15 mL Univers enhydrAMINE 5-12 by mouth ity of :lidocaine 00:00: as needed [place] 2 % viscous 00 for Oral Medi shanice 1:1:1 mucositis Branch (EPIGASTRI C PAIN). proMETHazin 2023-0 Yes [id number] 25mg Take 1 Univers e 25 mg 5-12 tablet by ity of tablet 00:00: mouth [place] 00 every 6 Medical (six) Branch hours as needed for Nausea and Vomiting (N/V). sucralfate 2023-0 Yes [id number] 1g Take 1 U nivers 1 gram 5-12 tablet by ity of tablet 00:00: mouth [place] 00 before Medical meals and Branch at bedtime. esomeprazol 2023-0 Yes [id number] 40mg Take 1 Univers e (NEXIUM) 5-12 capsule by ity of 40 mg 00:00: mouth [place] capsule 00 daily with Medica l breakfast. Branch maalox:diph 3-0 Yes [id number] 15mL Take 15 mL Univers enhydrAMINE 5-12 by mouth ity of :lidocaine 00:00: as needed [place] 2 % viscous 00 for Oral Medi shanice 1:1:1 mucositis Branch (EPIGASTRI C PAIN). proMETHazin 3-0 Yes [id number] 25mg Take 1 Univers e 25 mg 5-12 tablet by ity of tablet 00:00: mouth [place] 00 every 6 Medical (six) Branch hours as needed for Nausea and Vomiting (N/V). sucralfate 3-0 Yes [id number] 1g Take 1 U nivers 1 gram 5-12 tablet by ity of tablet 00:00: mouth [place] 00 before Medical meals and Branch at bedtime. esomeprazol 3-0 Yes [id number] 40mg Take 1 Univers e (NEXIUM) 5-12 capsule by ity of 40 mg 00:00: mouth [place] capsule 00 daily with Medica l breakfast. Branch maalox:diph 3-0 Yes [id number] 15mL Take 15 mL Univers enhydrAMINE 5-12 by mouth ity of :lidocaine 00:00: as needed [place] 2 % viscous 00 for Oral Medi shanice 1:1:1 mucositis Branch (EPIGASTRI C PAIN). proMETHazin 2023-0 Yes [id number] 25mg Take 1 Univers e 25 mg 5-12 tablet by ity of tablet 00:00: mouth [place] 00 every 6 Medical (six) Branch hours as needed for Nausea and Vomiting (N/V). sucralfate 2023-0 Yes [id number] 1g Take 1 U nivers 1 gram 5-12 tablet by ity of tablet 00:00: mouth [place] 00 before Medical meals and Branch at bedtime. esomeprazol 2023-0 Yes [id number] 40mg Take 1 Univers e (NEXIUM) 5-12 capsule by ity of 40 mg 00:00: mouth [place] capsule 00 daily with Medica l breakfast. Branch maalox:diph 3-0 Yes [id number] 15mL Take 15 mL Univers enhydrAMINE 5-12 by mouth ity of :lidocaine 00:00: as needed [place] 2 % viscous 00 for Oral Medi shanice 1:1:1 mucositis Branch (EPIGASTRI C PAIN). proMETHazin 3-0 Yes [id number] 25mg Take 1 Univers e 25 mg 5-12 tablet by ity of tablet 00:00: mouth [place] 00 every 6 Medical (six) Branch hours as needed for Nausea and Vomiting (N/V). sucralfate 3-0 Yes [id number] 1g Take 1 U nivers 1 gram 5-12 tablet by ity of tablet 00:00: mouth [place] 00 before Medical meals and Branch at bedtime. esomeprazol 3-0 Yes [id number] 40mg Take 1 Univers e (NEXIUM) 5-12 capsule by ity of 40 mg 00:00: mouth [place] capsule 00 daily with Medica l breakfast. Branch maalox:diph 3-0 Yes [id number] 15mL Take 15 mL Univers enhydrAMINE 5-12 by mouth ity of :lidocaine 00:00: as needed [place] 2 % viscous 00 for Oral Medi shanice 1:1:1 mucositis Branch (EPIGASTRI C PAIN). proMETHazin 3-0 Yes [id number] 25mg Take 1 Univers e 25 mg 5-12 tablet by ity of tablet 00:00: mouth [place] 00 every 6 Medical (six) Branch hours as needed for Nausea and Vomiting (N/V). sucralfate 2023-0 Yes [id number] 1g Take 1 U nivers 1 gram 5-12 tablet by ity of tablet 00:00: mouth [place] 00 before Medical meals and Branch at bedtime. esomeprazol 2023-0 Yes [id number] 40mg Take 1 Univers e (NEXIUM) 5-12 capsule by ity of 40 mg 00:00: mouth [place] capsule 00 daily with Medica l breakfast. Branch maalox:diph 2023-0 Yes [id number] 15mL Take 15 mL [facility] enhydrAMINE 5-12 by mouth ity of :lidocaine 00:00: as needed [place] 2 % viscous 00 for Oral Medi shanice 1:1:1 mucositis Branch (EPIGASTRI C PAIN). proMETHazin 3-0 Yes [id number] 25mg Take 1 Univers e 25 mg 5-12 tablet by ity of tablet 00:00: mouth [place] 00 every 6 Medical (six) Branch hours as needed for Nausea and Vomiting (N/V). sucralfate 3-0 Yes [id number] 1g Take 1 U nivers 1 gram 5-12 tablet by ity of tablet 00:00: mouth [place] 00 before Medical meals and Branch at bedtime. esomeprazol 3-0 Yes [id number] 40mg Take 1 Univers e (NEXIUM) 5-12 capsule by ity of 40 mg 00:00: mouth [place] capsule 00 daily with Medica l breakfast. Branch maalox:diph 3-0 Yes [id number] 15mL Take 15 mL [facility] enhydrAMINE 5-12 by mouth ity of :lidocaine 00:00: as needed [place] 2 % viscous 00 for Oral Medi shanice 1:1:1 mucositis Branch (EPIGASTRI C PAIN). proMETHazin 3-0 Yes [id number] 25mg Take 1 Univers e 25 mg 5-12 tablet by ity of tablet 00:00: mouth [place] 00 every 6 Medical (six) Branch hours as needed for Nausea and Vomiting (N/V). sucralfate 3-0 Yes [id number] 1g Take 1 U nivers 1 gram 5-12 tablet by ity of tablet 00:00: mouth [place] 00 before Medical meals and Branch at bedtime. esomeprazol 3-0 Yes [id number] 40mg Take 1 Univers e (NEXIUM) 5-12 capsule by ity of 40 mg 00:00: mouth [place] capsule 00 daily with Medica l breakfast. Branch maalox:diph 2023-0 Yes [id number] 15mL Take 15 mL [facility] enhydrAMINE 5-12 by mouth ity of :lidocaine 00:00: as needed [place] 2 % viscous 00 for Oral Medi shanice 1:1:1 mucositis Branch (EPIGASTRI C PAIN). proMETHazin 2023-0 Yes [id number] 25mg Take 1 Univers e 25 mg 5-12 tablet by ity of tablet 00:00: mouth [place] 00 every 6 Medical (six) Branch hours as needed for Nausea and Vomiting (N/V). sucralfate 2023-0 Yes [id number] 1g Take 1 U nivers 1 gram 5-12 tablet by ity of tablet 00:00: mouth [place] 00 before Medical meals and Branch at bedtime. esomeprazol 2023-0 Yes [id number] 40mg Take 1 [facility] e (NEXIUM) 5-12 capsule by ity of 40 mg 00:00: mouth [place] capsule 00 daily with Medica l breakfast. Branch maalox:diph 2023-0 Yes [id number] 15mL Take 15 mL [facility] enhydrAMINE 5-12 by mouth ity of :lidocaine 00:00: as needed [place] 2 % viscous 00 for Oral Medi shanice 1:1:1 mucositis Branch (EPIGASTRI C PAIN). proMETHazin 2023-0 Yes [id number] 25mg Take 1 [facility] e 25 mg 5-12 tablet by ity of tablet 00:00: mouth [place] 00 every 6 Medical (six) Branch hours as needed for Nausea and Vomiting (N/V). sucralfate 3-0 Yes [id number] 1g Take 1 U nivers 1 gram 5-12 tablet by ity of tablet 00:00: mouth [place] 00 before Medical meals and Branch at bedtime. esomeprazol 3-0 Yes [id number] 40mg Take 1 [facility] e (NEXIUM) 5-12 capsule by ity of 40 mg 00:00: mouth [place] capsule 00 daily with Medica l breakfast. Branch maalox:diph 3-0 Yes [id number] 15mL Take 15 mL [facility] enhydrAMINE 5-12 by mouth ity of :lidocaine 00:00: as needed [place] 2 % viscous 00 for Oral Medi shanice 1:1:1 mucositis Branch (EPIGASTRI C PAIN). proMETHazin 2023-0 Yes [id number] 25mg Take 1 [facility] e 25 mg 5-12 tablet by ity of tablet 00:00: mouth [place] 00 every 6 Medical (six) Branch hours as needed for Nausea and Vomiting (N/V). sucralfate 2023-0 Yes [id number] 1g Take 1 U nivers 1 gram 5-12 tablet by ity of tablet 00:00: mouth [place] 00 before Medical meals and Branch at bedtime. esomeprazol 2023-0 Yes [id number] 40mg Take 1 [facility] e (NEXIUM) 5-12 capsule by ity of 40 mg 00:00: mouth [place] capsule 00 daily with Medica l breakfast. Branch maalox:diph 2023-0 Yes [id number] 15mL Take 15 mL [facility] enhydrAMINE 5-12 by mouth ity of :lidocaine 00:00: as needed [place] 2 % viscous 00 for Oral Medi shanice 1:1:1 mucositis Branch (EPIGASTRI C PAIN). proMETHazin 2023-0 Yes [id number] 25mg Take 1 [facility] e 25 mg 5-12 tablet by ity of tablet 00:00: mouth [place] 00 every 6 Medical (six) Branch hours as needed for Nausea and Vomiting (N/V). sucralfate 2023-0 Yes [id number] 1g Take 1 U nivers 1 gram 5-12 tablet by ity of tablet 00:00: mouth [place] 00 before Medical meals and Branch at bedtime. esomeprazol 3-0 Yes [id number] 40mg Take 1 [facility] e (NEXIUM) 5-12 capsule by ity of 40 mg 00:00: mouth [place] capsule 00 daily with Medica l breakfast. Branch maalox:diph 3-0 Yes [id number] 15mL Take 15 mL [facility] enhydrAMINE 5-12 by mouth ity of :lidocaine 00:00: as needed [place] 2 % viscous 00 for Oral Medi shanice 1:1:1 mucositis Branch (EPIGASTRI C PAIN). proMETHazin 2023-0 Yes [id number] 25mg Take 1 [facility] e 25 mg 5-12 tablet by ity of tablet 00:00: mouth [place] 00 every 6 Medical (six) Branch hours as needed for Nausea and Vomiting (N/V). sucralfate 2023-0 Yes [id number] 1g Take 1 U nivers 1 gram 5-12 tablet by ity of tablet 00:00: mouth [place] 00 before Medical meals and Branch at bedtime. esomeprazol 2023-0 Yes [id number] 40mg Take 1 [facility] e (NEXIUM) 5-12 capsule by ity of 40 mg 00:00: mouth [place] capsule 00 daily with Medica l breakfast. Branch maalox:diph 3-0 Yes [id number] 15mL Take 15 mL [facility] enhydrAMINE 5-12 by mouth ity of :lidocaine 00:00: as needed [place] 2 % viscous 00 for Oral Medi shanice 1:1:1 mucositis Branch (EPIGASTRI C PAIN). proMETHazin 3-0 Yes [id number] 25mg Take 1 [facility] e 25 mg 5-12 tablet by ity of tablet 00:00: mouth [place] 00 every 6 Medical (six) Branch hours as needed for Nausea and Vomiting (N/V). sucralfate 2023-0 Yes [id number] 1g Take 1 U nivers 1 gram 5-12 tablet by ity of tablet 00:00: mouth [place] 00 before Medical meals and Branch at bedtime. esomeprazol 3-0 Yes [id number] 40mg Take 1 [facility] e (NEXIUM) 5-12 capsule by ity of 40 mg 00:00: mouth [place] capsule 00 daily with Medica l breakfast. Branch maalox:diph 2022-0 Yes [id number] 15mL Take 15 mL [facility] enhydrAMINE 5-12 by mouth ity of :lidocaine 00:00: as needed [place] 2 % viscous 00 for Oral Medi shanice 1:1:1 mucositis Branch (EPIGASTRI C PAIN). proMETHazin 3-0 Yes [id number] 25mg Take 1 [facility] e 25 mg 5-12 tablet by ity of tablet 00:00: mouth [place] 00 every 6 Medical (six) Branch hours as needed for Nausea and Vomiting (N/V). sucralfate 3-0 Yes [id number] 1g Take 1 U nivers 1 gram 5-12 tablet by ity of tablet 00:00: mouth [place] 00 before Medical meals and Branch at bedtime. esomeprazol 2023-0 Yes [id number] 40mg Take 1 [facility] e (NEXIUM) 5-12 capsule by ity of 40 mg 00:00: mouth [place] capsule 00 daily with Medica l breakfast. Branch maalox:diph 3-0 Yes [id number] 15mL Take 15 mL [facility] enhydrAMINE 5-12 by mouth ity of :lidocaine 00:00: as needed [place] 2 % viscous 00 for Oral Medi shanice 1:1:1 mucositis Branch (EPIGASTRI C PAIN). proMETHazin 2023-0 Yes [id number] 25mg Take 1 [facility] e 25 mg 5-12 tablet by ity of tablet 00:00: mouth [place] 00 every 6 Medical (six) Branch hours as needed for Nausea and Vomiting (N/V). sucralfate 2023-0 Yes [id number] 1g Take 1 U nivers 1 gram 5-12 tablet by ity of tablet 00:00: mouth [place] 00 before Medical meals and Branch at bedtime. esomeprazol 2023-0 Yes [id number] 40mg Take 1 [facility] e (NEXIUM) 5-12 capsule by ity of 40 mg 00:00: mouth [place] capsule 00 daily with Medica l breakfast. Branch maalox:diph 2023-0 Yes [id number] 15mL Take 15 mL [facility] enhydrAMINE 5-12 by mouth ity of :lidocaine 00:00: as needed [place] 2 % viscous 00 for Oral Medi shanice 1:1:1 mucositis Branch (EPIGASTRI C PAIN). proMETHazin 3-0 Yes [id number] 25mg Take 1 [facility] e 25 mg 5-12 tablet by ity of tablet 00:00: mouth [place] 00 every 6 Medical (six) Branch hours as needed for Nausea and Vomiting (N/V). sucralfate 2023-0 Yes [id number] 1g Take 1 U nivers 1 gram 5-12 tablet by ity of tablet 00:00: mouth [place] 00 before Medical meals and Branch at bedtime. esomeprazol 2023-0 Yes [id number] 40mg Take 1 [facility] e (NEXIUM) 5-12 capsule by ity of 40 mg 00:00: mouth [place] capsule 00 daily with Medica l breakfast. Branch maalox:diph 2023-0 Yes [id number] 15mL Take 15 mL [facility] enhydrAMINE 5-12 by mouth ity of :lidocaine 00:00: as needed [place] 2 % viscous 00 for Oral Medi shanice 1:1:1 mucositis Branch (EPIGASTRI C PAIN). proMETHazin 2023-0 Yes [id number] 25mg Take 1 [facility] e 25 mg 5-12 tablet by ity of tablet 00:00: mouth [place] 00 every 6 Medical (six) Branch hours as needed for Nausea and Vomiting (N/V). sucralfate Yes [id number] 1g Take 1 U nivers 1 gram 5-12 tablet by ity of tablet 00:00: mouth [place] 00 before Medical meals and Branch at bedtime. esomeprazol Yes [id number] 40mg Take 1 [facility] e (NEXIUM) 5-12 capsule by ity of 40 mg 00:00: mouth [place] capsule 00 daily with Medica l breakfast. Branch ondansetron 2022- No [id number] 4mg Take 1 [facility] (ZOFRAN) 4 -08 11-27 tablet by ity of mg tablet 00:00: 00:00 mouth [place] 00 :00 every 8 Medical (eight) Branch hours as needed for Nausea and Vomiting (N/V). proMETHazin 2022- No [id number] 25mg Take 1 [facility] e 25 mg 5-12 05-12 tablet by ity of tablet 00:00: 00:00 mouth [place] 00 :00 every 6 Medical (six) Branch hours as needed for Nausea and Vomiting (N/V). sucralfate 2022- No [id number] 1g Take 1 [facility] 1 gram 5-12 05-12 tablet by ity of tablet 00:00: 00:00 mouth [place] 00 :00 before Medical meals and Branch at bedtime. esomeprazol 2022- No [id number] 40mg Take 1 [facility] e (NEXIUM) 5-12 [...] 0145, 15 mL Routine iopamidol 2022- No [id number] 70mL 70 mL, Univers (ISOVUE 12-30 Intravenou ity o f 370-500 mL) 17:30: 17:25 s, ONCE, 1 [place] injection 00 :00 dose, On Medica l 70 mL [facility] 12/30/22 at 1230, Routine nitroglycer No [id number] .8mg 0.8 mg, Univers in 12-30 Sublingual ity of (NITROSTAT) 17:15: 17:15 , ONCE, 1 [place] sublingual 00 :00 dose, On Medic al tablet 0.8 [facility] Branch mg 12/30/22 at 1215, Routine metoprolol No [id number] 100mg 100 mg, Univers tartrate 12-30 Oral, ity of (LOPRESSOR) 16:15: 16:41 ONCE, 1 [place] tablet 100 00 :00 dose, On Medic al mg [facility] 12/30/22 at 1141, Routine valACYclovi Yes [id number] 1g Take 1 Univers r 1 gram 4-21 tablet by ity of tablet 00:00: mouth in [address] and 1 tablet at noon and 1 tablet in the evening. valACYclovi Yes [id number] 1g Take 1 [facility] r 1 gram 4-21 tablet by ity of tablet 00:00: mouth in [address] and 1 tablet at noon and 1 tablet in the evening. valACYclovi Yes [id number] 1g Take 1 [facility] r 1 gram 4-21 tablet by ity of tablet 00:00: mouth in [address] and 1 tablet at noon and 1 tablet in the evening. valACYclovi 0 Yes [id number] 1g Take 1 [facility] r 1 gram 4-21 tablet by ity of tablet 00:00: mouth in [address] and 1 tablet at noon and 1 tablet in the evening. valACYclovi 0 Yes [id number] 1g Take 1 [facility] r 1 gram 4-21 tablet by ity of tablet 00:00: mouth in [address] and 1 tablet at noon and 1 tablet in the evening. valACYclovi 0 Yes [id number] 1g Take 1 [facility] r 1 gram 4-21 tablet by ity of tablet 00:00: mouth in [address] and 1 tablet at noon and 1 tablet in the evening. valACYclovi 2022-0 Yes [id number] 1g Take 1 [facility] r 1 gram 4-21 tablet by ity of tablet 00:00: mouth in [place] 00 the Medical morning Branch and 1 tablet at noon and 1 tablet in the evening. valACYclovi 0 Yes [id number] 1g Take 1 [facility] r 1 gram 4-21 tablet by ity of tablet 00:00: mouth in [place] 00 the Medical morning Branch and 1 tablet at noon and 1 tablet in the evening. valACYclovi 0 Yes [id number] 1g Take 1 Univers r 1 gram 4-21 tablet by ity of tablet 00:00: mouth in [place] 00 the Medical morning Branch and 1 tablet at noon and 1 tablet in the evening. valACYclovi 0 Yes [id number] 1g Take 1 [facility] r 1 gram 4-21 tablet by ity of tablet 00:00: mouth in [place] 00 the Medical morning Branch and 1 tablet at noon and 1 tablet in the evening. valACYclovi Yes [id number] 1g Take 1 [facility] r 1 gram 4-21 tablet by ity of tablet 00:00: mouth in [place] 00 the Medical morning Branch and 1 tablet at noon and 1 tablet in the evening. valACYclovi Yes [id number] 1g Take 1 Univers r 1 gram 4-21 tablet by ity of tablet 00:00: mouth in [place] 00 the Medical morning Branch and 1 tablet at noon and 1 tablet in the evening. valACYclovi 0 Yes [id number] 1g Take 1 Univers r 1 gram 4-21 tablet by ity of tablet 00:00: mouth in [place] 00 the Medical morning Branch and 1 tablet at noon and 1 tablet in the evening. valACYclovi 0 Yes [id number] 1g Take 1 [facility] r 1 gram 4-21 tablet by ity of tablet 00:00: mouth in [place] 00 the Medical morning Branch and 1 tablet at noon and 1 tablet in the evening. valACYclovi 0 2022- No [id number] 1g Take 1 Univers r 1 gram 4-21 05-12 tablet by ity o f tablet 00:00: 00:00 mouth in [place] 00 :00 the Medical morning Branch and 1 tablet at noon and 1 tablet in the evening. valACYclovi 0 2022- No [id number] 1g Take 1 Univers r 1 gram 4-21 -29 tablet by ity o f tablet 00:00: 04:59 mouth in [place] 00 :00 the [facility] Branch and 1 tablet at noon and 1 tablet in the evening. Do all this for 7 days. valACYclovi 2022- No [id number] 1g Take 1 Univers r 1 gram 4-21 -21 tablet by ity o f tablet 00:00: 00:00 mouth in [place] 00 :00 the [facility] Branch and 1 tablet at noon and 1 tablet in the evening. Do all this for 7 days. levETIRAcet Yes TWICE Unive rs am 500 mg 4-18 DAILY. ity of tablet 09:12: [address] gabapentin Yes gabapentin U nivers 300 mg 4-18 300 mg ity of capsule 09:12: capsule [address] famotidine Yes famotidine U nivers 20 mg 4-18 20 mg ity of tablet 09:12: tablet [address] clonazePAM Yes clonazepam U nivers 0.5 mg 4-18 0.5 mg ity of tablet 09:12: tablet [place] [address] TAKE 1 Medical TABLET BY Branch MOUTH EVERY DAY AT BEDTIME NEEDED FOR SEVERE ANXIETY/PA STACEY ATTACK buPROPion Yes 300mg Take 1 Unive rs XL 300 mg 4-18 tablet by ity o f 24 hr 09:12: mouth. [address] buprenorphi Yes [place] [facility] vers ne [...] mg 4-18 DAILY. ity of tablet 09:12: [address] gabapentin Yes gabapentin U nivers 300 mg 4-18 300 mg ity of capsule 09:12: capsule [address] famotidine 0 Yes famotidine U nivers 20 mg 4-18 20 mg ity of tablet 09:12: tablet [address] clonazePAM 0 Yes clonazepam U nivers 0.5 mg 4-18 0.5 mg ity of tablet 09:12: tablet [place] [address] TAKE 1 Medical TABLET BY Branch MOUTH EVERY DAY AT BEDTIME NEEDED FOR SEVERE ANXIETY/PA STACEY ATTACK buPROPion Yes 300mg Take 1 Unive rs XL 300 mg 4-18 tablet by ity o f 24 hr 09:12: mouth. [address] buprenorphi Yes [place] [facility] vers ne [...] mg 4-18 DAILY. ity of tablet 09:12: [address] gabapentin Yes gabapentin U nivers 300 mg 4-18 300 mg ity of capsule 09:12: capsule [address] famotidine 2022-0 Yes famotidine U nivers 20 mg 4-18 20 mg ity of tablet 09:12: tablet [address] clonazePAM 2022-0 Yes clonazepam U nivers 0.5 mg 4-18 0.5 mg ity of tablet 09:12: tablet [place] [address] TAKE 1 Medical TABLET BY Branch MOUTH EVERY DAY AT BEDTIME NEEDED FOR SEVERE ANXIETY/PA STACEY ATTACK buPROPion Yes 300mg Take 1 Unive rs XL 300 mg 4-18 tablet by ity o f 24 hr 09:12: mouth. [place] tablet 14 [facility] buprenorphi Yes [place] [facility] vers ne [...] mg 4-18 DAILY. ity of tablet 09:12: [address] gabapentin Yes gabapentin U nivers 300 mg 4-18 300 mg ity of capsule 09:12: capsule [address] famotidine Yes famotidine U nivers 20 mg 4-18 20 mg ity of tablet 09:12: tablet [address] clonazePAM Yes clonazepam U nivers 0.5 mg 4-18 0.5 mg ity of tablet 09:12: tablet [place] [address] TAKE 1 Medical TABLET BY Branch MOUTH EVERY DAY AT BEDTIME NEEDED FOR SEVERE ANXIETY/PA STACEY ATTACK buPROPion Yes 300mg Take 1 Unive rs XL 300 mg 4-18 tablet by ity o f 24 hr 09:12: mouth. [place] tablet 14 [facility] buprenorphi Yes [place] [facility] vers ne [...] mg 4-18 DAILY. ity of tablet 09:12: [address] gabapentin Yes gabapentin U nivers 300 mg 4-18 300 mg ity of capsule 09:12: capsule [address] famotidine 0 Yes famotidine U nivers 20 mg 4-18 20 mg ity of tablet 09:12: tablet [address] clonazePAM Yes clonazepam U nivers 0.5 mg 4-18 0.5 mg ity of tablet 09:12: tablet [place] [address] TAKE 1 Medical TABLET BY Branch MOUTH EVERY DAY AT BEDTIME NEEDED FOR SEVERE ANXIETY/PA STACEY ATTACK buPROPion Yes 300mg Take 1 Unive rs XL 300 mg 4-18 tablet by ity o f 24 hr 09:12: mouth. [address] buprenorphi Yes [place] Uni vers ne [...] mg 4-18 DAILY. ity of tablet 09:12: [address] gabapentin Yes gabapentin U nivers 300 mg 4-18 300 mg ity of capsule 09:12: capsule [address] famotidine 2023-0 Yes famotidine U nivers 20 mg 4-18 20 mg ity of tablet 09:12: tablet [address] clonazePAM 2022-0 Yes clonazepam U nivers 0.5 mg 4-18 0.5 mg ity of tablet 09:12: tablet [place] 14 TAKE 1 Medical TABLET BY Branch MOUTH EVERY DAY AT BEDTIME NEEDED FOR SEVERE ANXIETY/PA STACEY ATTACK buPROPion 0 Yes 300mg Take 1 Unive rs XL 300 mg 4-18 tablet by ity o f 24 hr 09:12: mouth. [place] tablet 14 [facility] buprenorphi Yes [place] Uni vers ne [...] mg 4-18 DAILY. ity of tablet 09:12: [address] gabapentin Yes gabapentin U nivers 300 mg 4-18 300 mg ity of capsule 09:12: capsule [address] famotidine 2022-0 Yes famotidine U nivers 20 mg 4-18 20 mg ity of tablet 09:12: tablet [address] clonazePAM 2022-0 Yes clonazepam U nivers 0.5 mg 4-18 0.5 mg ity of tablet 09:12: tablet [place] 14 TAKE 1 Medical TABLET BY Branch MOUTH EVERY DAY AT BEDTIME NEEDED FOR SEVERE ANXIETY/PA STACEY ATTACK buPROPion 2022-0 Yes 300mg Take 1 Unive rs XL 300 mg 4-18 tablet by ity o f 24 hr 09:12: mouth. [place] tablet 14 [facility] buprenorphi Yes [place] [facility] vers ne [...] mg 4-18 DAILY. ity of tablet 09:12: [address] gabapentin Yes gabapentin U nivers 300 mg 4-18 300 mg ity of capsule 09:12: capsule [address] famotidine Yes famotidine U nivers 20 mg 4-18 20 mg ity of tablet 09:12: tablet [address] clonazePAM Yes clonazepam U nivers 0.5 mg 4-18 0.5 mg ity of tablet 09:12: tablet [place] [address] TAKE 1 Medical TABLET BY Branch MOUTH EVERY DAY AT BEDTIME NEEDED FOR SEVERE ANXIETY/PA STACEY ATTACK buPROPion Yes 300mg Take 1 Unive rs XL 300 mg 4-18 tablet by ity o f 24 hr 09:12: mouth. [place] tablet [address] [place] [address] buprenorphi Yes [place] [facility] vers ne HCL [...] mg 4-18 DAILY. ity of tablet 09:12: [address] gabapentin 2022-0 Yes gabapentin U nivers 300 mg 4-18 300 mg ity of capsule 09:12: capsule [address] famotidine 2022-0 Yes famotidine U nivers 20 mg 4-18 20 mg ity of tablet 09:12: tablet [address] clonazePAM 2022-0 Yes clonazepam U nivers 0.5 mg 4-18 0.5 mg ity of tablet 09:12: tablet [place] [address] TAKE 1 Medical TABLET BY Branch MOUTH EVERY DAY AT BEDTIME NEEDED FOR SEVERE ANXIETY/PA STACEY ATTACK buPROPion 0 Yes 300mg Take 1 Unive rs XL 300 mg 4-18 tablet by ity o f 24 hr 09:12: mouth. [address] buprenorphi 0 Yes [place] [facility] vers ne [...] mg 4-18 DAILY. ity of tablet 09:12: [address] gabapentin 2022-0 Yes gabapentin U nivers 300 mg 4-18 300 mg ity of capsule 09:12: capsule [address] famotidine 2022-0 Yes famotidine U nivers 20 mg 4-18 20 mg ity of tablet 09:12: tablet [address] clonazePAM 2022-0 Yes clonazepam U nivers 0.5 mg 4-18 0.5 mg ity of tablet 09:12: tablet [place] 14 TAKE 1 Medical TABLET BY Branch MOUTH EVERY DAY AT BEDTIME NEEDED FOR SEVERE ANXIETY/PA STACEY ATTACK buPROPion Yes 300mg Take 1 Unive rs XL 300 mg 4-18 tablet by ity o f 24 hr 09:12: mouth. [place] tablet 14 [facility] buprenorphi 0 Yes [place] Uni vers [...] mg 4-18 DAILY. ity of tablet 09:12: [address] gabapentin Yes gabapentin U nivers 300 mg 4-18 300 mg ity of capsule 09:12: capsule [address] famotidine 0 Yes famotidine U nivers 20 mg 4-18 20 mg ity of tablet 09:12: tablet [address] clonazePAM 0 Yes clonazepam U nivers 0.5 mg 4-18 0.5 mg ity of tablet 09:12: tablet [place] [address] TAKE 1 Medical TABLET BY Branch MOUTH EVERY DAY AT BEDTIME NEEDED FOR SEVERE ANXIETY/PA STACEY ATTACK buPROPion 0 Yes 300mg Take 1 Unive rs XL 300 mg 4-18 tablet by ity o f 24 hr 09:12: mouth. [place] tablet 14 [facility] buprenorphi Yes [place] Uni vers ne [...] mg 4-18 DAILY. ity of tablet 09:12: [address] gabapentin Yes gabapentin U nivers 300 mg 4-18 300 mg ity of capsule 09:12: capsule [address] famotidine Yes famotidine U nivers 20 mg 4-18 20 mg ity of tablet 09:12: tablet [address] clonazePAM Yes clonazepam U nivers 0.5 mg 4-18 0.5 mg ity of tablet 09:12: tablet [place] [address] TAKE 1 Medical TABLET BY Branch MOUTH EVERY DAY AT BEDTIME NEEDED FOR SEVERE ANXIETY/PA STACEY ATTACK buPROPion Yes 300mg Take 1 Unive rs XL 300 mg 4-18 tablet by ity o f 24 hr 09:12: mouth. [address] buprenorphi Yes [place] [facility] vers ne [...] mg 4-18 DAILY. ity of tablet 09:12: [address] gabapentin 2023-0 Yes gabapentin U nivers 300 mg 4-18 300 mg ity of capsule 09:12: capsule [address] famotidine 2022-0 Yes famotidine U nivers 20 mg 4-18 20 mg ity of tablet 09:12: tablet [address] clonazePAM 2022-0 Yes clonazepam U nivers 0.5 mg 4-18 0.5 mg ity of tablet 09:12: tablet [place] 14 TAKE 1 Medical TABLET BY Branch [...] mg 4-18 DAILY. ity of tablet 09:12: [address] gabapentin 0 Yes gabapentin U nivers 300 mg 4-18 300 mg ity of capsule 09:12: capsule [address] famotidine 2022-0 Yes famotidine U nivers 20 mg 4-18 20 mg ity of tablet 09:12: tablet [address] clonazePAM 2022-0 Yes clonazepam U nivers 0.5 mg 4-18 0.5 mg ity of tablet 09:12: tablet [place] 14 TAKE 1 Medical TABLET BY Branch [...] mg 4-18 DAILY. ity of tablet 09:12: [address] gabapentin Yes gabapentin U nivers 300 mg 4-18 300 mg ity of capsule 09:12: capsule [address] famotidine Yes famotidine U nivers 20 mg 4-18 20 mg ity of tablet 09:12: tablet [address] clonazePAM Yes clonazepam U nivers 0.5 mg 4-18 0.5 mg ity of tablet 09:12: tablet [place] [address] TAKE 1 Medical TABLET BY Branch MOUTH [...] mg 4-18 DAILY. ity of tablet 09:12: [address] gabapentin Yes gabapentin U nivers 300 mg 4-18 300 mg ity of capsule 09:12: capsule [address] famotidine Yes famotidine U nivers 20 mg 4-18 20 mg ity of tablet 09:12: tablet [address] clonazePAM 2022-0 Yes clonazepam U nivers 0.5 mg 4-18 0.5 mg ity of tablet 09:12: tablet [place] 14 TAKE 1 Medical TABLET BY Branch [...] mg 4-18 DAILY. ity of tablet 09:12: [address] gabapentin Yes gabapentin U nivers 300 mg 4-18 300 mg ity of capsule 09:12: capsule [address] famotidine Yes famotidine U nivers 20 mg 4-18 20 mg ity of tablet 09:12: tablet [address] clonazePAM Yes clonazepam U nivers 0.5 mg 4-18 0.5 mg ity of tablet 09:12: tablet [place] 14 TAKE 1 Medical TABLET BY Branch [...] mg 4-18 DAILY. ity of tablet 09:12: [address] gabapentin Yes gabapentin U nivers 300 mg 4-18 300 mg ity of capsule 09:12: capsule [address] famotidine Yes famotidine U nivers 20 mg 4-18 20 mg ity of tablet 09:12: tablet [address] clonazePAM Yes clonazepam U nivers 0.5 mg 4-18 0.5 mg ity of tablet 09:12: tablet [place] [address] TAKE 1 Medical TABLET BY Branch MOUTH [...] mg 4-18 DAILY. ity of tablet 09:12: [address] gabapentin Yes gabapentin U nivers 300 mg 4-18 300 mg ity of capsule 09:12: capsule [address] famotidine Yes famotidine U nivers 20 mg 4-18 20 mg ity of tablet 09:12: tablet [address] clonazePAM Yes clonazepam U nivers 0.5 mg 4-18 0.5 mg ity of tablet 09:12: tablet [place] 14 TAKE 1 Medical TABLET BY Branch [...] mg 4-18 DAILY. ity of tablet 09:12: [address] gabapentin Yes gabapentin U nivers 300 mg 4-18 300 mg ity of capsule 09:12: capsule [address] famotidine Yes famotidine U nivers 20 mg 4-18 20 mg ity of tablet 09:12: tablet [address] clonazePAM Yes clonazepam U nivers 0.5 mg 4-18 0.5 mg ity of tablet 09:12: tablet [place] [address] TAKE 1 Medical TABLET BY Branch MOUTH [...] mg 4-18 DAILY. ity of tablet 09:12: [address] gabapentin 0 Yes gabapentin U nivers 300 mg 4-18 300 mg ity of capsule 09:12: capsule [address] famotidine 2022-0 Yes famotidine U nivers 20 mg 4-18 20 mg ity of tablet 09:12: tablet [address] clonazePAM Yes clonazepam U nivers 0.5 mg 4-18 0.5 mg ity of tablet 09:12: tablet [place] 14 TAKE 1 Medical TABLET BY Branch [...] mg 4-18 DAILY. ity of tablet 09:12: [address] gabapentin Yes gabapentin U nivers 300 mg 4-18 300 mg ity of capsule 09:12: capsule [address] famotidine 2022-0 Yes famotidine U nivers 20 mg 4-18 20 mg ity of tablet 09:12: tablet [address] clonazePAM 2022-0 Yes clonazepam U nivers 0.5 mg 4-18 0.5 mg ity of tablet 09:12: tablet [place] 14 TAKE 1 Medical TABLET BY Branch [...] mg 4-18 DAILY. ity of tablet 09:12: [address] gabapentin Yes gabapentin U nivers 300 mg 4-18 300 mg ity of capsule 09:12: capsule [address] famotidine Yes famotidine U nivers 20 mg 4-18 20 mg ity of tablet 09:12: tablet [address] clonazePAM Yes clonazepam U nivers 0.5 mg 4-18 0.5 mg ity of tablet 09:12: tablet [place] [address] TAKE 1 Medical TABLET BY Branch MOUTH [...] mg 4-18 DAILY. ity of tablet 09:12: [address] gabapentin 2022-0 Yes gabapentin U nivers 300 mg 4-18 300 mg ity of capsule 09:12: capsule [address] famotidine 2022-0 Yes famotidine U nivers 20 mg 4-18 20 mg ity of tablet 09:12: tablet [address] clonazePAM 2022-0 Yes clonazepam U nivers 0.5 mg 4-18 0.5 mg ity of tablet 09:12: tablet [place] 14 TAKE 1 Medical TABLET BY Branch [...] mg 4-18 DAILY. ity of tablet 09:12: [address] gabapentin 2022-0 Yes gabapentin U nivers 300 mg 4-18 300 mg ity of capsule 09:12: capsule [address] famotidine 2022-0 Yes famotidine U nivers 20 mg 4-18 20 mg ity of tablet 09:12: tablet [address] clonazePAM 2022-0 Yes clonazepam U nivers 0.5 mg 4-18 0.5 mg ity of tablet 09:12: tablet [place] 14 TAKE 1 Medical TABLET BY Branch [...] No 162mg 162 mg, Unive rs chewable 12-1915 Oral, ONCE ity of tablet 162 10:30: 09:42 NOW, 1 [place] mg 00 :00 dose, On Medical Sat Branch 12/19/22 at 0530, Routine iopamidol 2022- No [id number] 99mL 99 mL, U nivers (ISOVUE 12-19 [...] 800 mg ity of tablet 10:43: tablet [address] adalimumab 0 Yes 40mg inject 1 Uni vers (HUMIRA) 40 4-11 Syringe ity o f mg/0.8 mL 10:43: under the [facility] as injection 17 skin. [facility] Branch ibuprofen Yes ibuprofen Uni vers 800 mg 4-11 800 mg ity of tablet 10:43: tablet [address] adalimumab 2022-0 Yes 40mg inject 1 [...] 800 mg ity of tablet 10:43: tablet [address] [place] [address] Branch adalimumab 3-0 Yes 40mg inject 1 Uni vers (HUMIRA) 40 4-11 Syringe ity o f mg/0.8 mL 10:43: under the [facility] as injection 17 skin. Medical Branch ibuprofen 2022-0 Yes ibuprofen Uni vers 800 mg 4-11 800 mg ity of tablet 10:43: tablet [address] Branch adalimumab 2022-0 Yes 40mg inject 1 Uni vers (HUMIRA) 40 4-11 Syringe ity o f mg/0.8 mL 10:43: under the [facility] as injection 17 skin. Medical Branch ibuprofen 2022-0 Yes ibuprofen Uni vers 800 mg 4-11 800 mg ity of tablet 10:43: tablet [address] Branch adalimumab 2022-0 Yes 40mg inject 1 Uni vers (HUMIRA) 40 4-11 Syringe ity o f mg/0.8 mL 10:43: under the [facility] as injection 17 skin. Medical Branch ibuprofen 2022-0 Yes ibuprofen Uni vers 800 mg 4-11 800 mg ity of tablet 10:43: tablet [address] [place] [address] Branch adalimumab 2022-0 Yes 40mg inject 1 Uni vers (HUMIRA) 40 4-11 Syringe ity o f mg/0.8 mL 10:43: under the [facility] as injection 17 skin. Medical Branch ibuprofen 2022-0 Yes ibuprofen Uni vers 800 mg 4-11 800 mg ity of tablet 10:43: tablet [address] Branch adalimumab 2022-0 Yes 40mg inject 1 Uni vers (HUMIRA) 40 4-11 Syringe ity o f mg/0.8 mL 10:43: under the [place] as injection 17 skin. Medical Branch ibuprofen 2022-0 Yes ibuprofen Uni vers 800 mg 4-11 800 mg ity of tablet 10:43: tablet [address] Branch pregabalin 2022-0 Yes 150mg Take [...] by ity of capsule 00:00: mouth in [place] the Medical morning Branch and 1 capsule in the evening. meloxicam 2023-0 Yes Univers 15 mg 3-30 ity of tablet 00:00: [place] [facility] Branch HYDROcodone 2023-0 Yes 1{tbl} Take 1 Un travis -acetaminop 3-30 tablet by ity of hen 5-325 00:00: mouth 4 [place] mg tablet ([facility]) Medical times [place] daily. pregabalin 2023-0 Yes 150mg Take 1 Univ ers 150 mg 3-30 capsule by ity of capsule 00:00: mouth in [place] the [facility] morning Branch and 1 capsule in the evening. meloxicam 2023-0 Yes Univers 15 mg 3-30 ity of tablet 00:00: [place] [facility] Branch HYDROcodone 2023-0 Yes 1{tbl} Take 1 Un travis -acetaminop 3-30 tablet by ity of hen 5-325 00:00: mouth 4 [place] mg tablet ([facility]) [facility] [place]. pregabalin 2023-0 Yes 150mg Take 1 Univ ers 150 mg 3-30 capsule by ity of capsule 00:00: mouth in [place] the [facility] morning Branch and 1 capsule in the evening. meloxicam 2023-0 Yes Univers 15 mg 3-30 ity of tablet 00:00: [place] [facility] Branch HYDROcodone 2023-0 Yes 1{tbl} Take 1 Un travis -acetaminop 3-30 tablet by ity of hen 5-325 00:00: mouth 4 [place] mg tablet ([facility]) Medical times [place] daily. pregabalin 2023-0 Yes 150mg Take 1 Univ ers 150 mg 3-30 capsule by ity of capsule 00:00: mouth in [place] the [facility] morning Branch and 1 capsule in the evening. meloxicam 2023-0 Yes Univers 15 mg 3-30 ity of tablet 00:00: [place] [facility] Branch HYDROcodone 2023-0 Yes 1{tbl} Take 1 Un travis -acetaminop 3-30 tablet by ity of hen 5-325 00:00: mouth 4 [place] mg tablet 00 ([facility]) Medical times Branch daily. pregabalin 2023-0 Yes 150mg Take 1 Univ ers 150 mg 3-30 capsule by ity of capsule 00:00: mouth in [place] the Medical morning Branch and 1 capsule in the evening. meloxicam 2023-0 Yes Univers 15 mg 3-30 ity of tablet 00:00: [place] [facility] Branch HYDROcodone 2023-0 Yes 1{tbl} Take 1 Un travis -acetaminop 3-30 tablet by ity of hen 5-325 00:00: mouth 4 [place] mg tablet ([facility]) Medical times [place] daily. pregabalin 2023-0 Yes 150mg Take 1 Univ ers 150 mg 3-30 capsule by ity of capsule 00:00: mouth in [place] the Medical morning Branch and 1 capsule in the evening. meloxicam 2023-0 Yes Univers 15 mg 3-30 ity of tablet 00:00: [place] [facility] Branch HYDROcodone 2023-0 Yes 1{tbl} Take 1 Un travis -acetaminop 3-30 tablet by ity of hen 5-325 00:00: mouth 4 [place] mg tablet ([facility]) [facility] [place]. pregabalin 2023-0 Yes 150mg Take 1 Univ ers 150 mg 3-30 capsule by ity of capsule 00:00: mouth in [place] [address] the [facility] morning Branch and 1 capsule in the evening. meloxicam 2023-0 Yes Univers 15 mg 3-30 ity of tablet 00:00: [place] [facility] Branch HYDROcodone 2023-0 Yes 1{tbl} Take 1 Un travis -acetaminop 3-30 tablet by ity of hen 5-325 00:00: mouth 4 [place] mg tablet ([facility]) [facility] times [place]. pregabalin 2023-0 Yes 150mg Take 1 Univ ers 150 mg 3-30 capsule by ity of capsule 00:00: mouth in [place] the Medical morning Branch and 1 capsule in the evening. meloxicam 2023-0 Yes Univers 15 mg 3-30 ity of tablet 00:00: [place] [facility] Branch HYDROcodone 2023-0 Yes 1{tbl} Take 1 Un travis -acetaminop 3-30 tablet by ity of hen 5-325 00:00: mouth 4 [place] mg tablet 00 ([facility]) Medical times [place] daily. pregabalin 2023-0 Yes 150mg Take 1 Univ ers 150 mg 3-30 capsule by ity of capsule 00:00: mouth in [place] [address] the Medical morning Branch and 1 capsule in the evening. meloxicam 2023-0 Yes Univers 15 mg 3-30 ity of tablet 00:00: [place] [facility] Branch HYDROcodone 2023-0 Yes 1{tbl} Take 1 Un travis -acetaminop 3-30 tablet by ity of hen 5-325 00:00: mouth 4 [place] mg tablet 00 ([facility]) [facility] [place]. pregabalin 2023-0 Yes 150mg Take 1 Univ ers 150 mg 3-30 capsule by ity of capsule 00:00: mouth in [place] [address] the [facility] morning Branch and 1 capsule in the evening. meloxicam 2023-0 Yes Univers 15 mg 3-30 ity of tablet 00:00: [address] Branch HYDROcodone 2023-0 Yes 1{tbl} Take 1 Un travis -acetaminop 3-30 tablet by ity of hen 5-325 00:00: mouth 4 [place] mg tablet 00 ([facility]) [facility] [place]. pregabalin 2023-0 Yes 150mg Take 1 Univ ers 150 mg 3-30 capsule by ity of capsule 00:00: mouth in [place] [address] the [facility] morning Branch and 1 capsule in the evening. meloxicam 2023-0 Yes Univers 15 mg 3-30 ity of tablet 00:00: [address] Branch HYDROcodone 2023-0 Yes 1{tbl} Take 1 Un travis -acetaminop 3-30 tablet by ity of hen 5-325 00:00: mouth 4 [place] mg tablet ([facility]) [facility] [place]. pregabalin 2023-0 Yes 150mg Take 1 Univ ers 150 mg 3-30 capsule by ity of capsule 00:00: mouth in [place] [address] the [facility] morning Branch and 1 capsule in the evening. meloxicam 2023-0 Yes Univers 15 mg 3-30 ity of tablet 00:00: [address] Branch HYDROcodone 2023-0 Yes 1{tbl} Take 1 Un travis -acetaminop 3-30 tablet by ity of hen 5-325 00:00: mouth 4 [place] mg tablet 00 ([facility]) [facility] [place]. pregabalin 2023-0 Yes 150mg Take 1 Univ ers 150 mg 3-30 capsule by ity of capsule 00:00: mouth in [place] [address] the [facility] morning [place] and 1 capsule in the evening. meloxicam 2023-0 Yes Univers 15 mg 3-30 ity of tablet 00:00: [place] 00 [facility] Branch HYDROcodone 2023-0 Yes 1{tbl} Take 1 Un travis -acetaminop 3-30 tablet by ity of hen 5-325 00:00: mouth 4 [place] mg tablet 00 (four) Medical times [place] daily. pregabalin 2023-0 Yes 150mg Take 1 Univ ers 150 mg 3-30 capsule by ity of capsule 00:00: mouth in [place] 00 the Medical morning Branch and 1 capsule in the evening. meloxicam 2023-0 Yes Univers 15 mg 3-30 ity of tablet 00:00: [place] 00 [facility] Branch HYDROcodone 2023-0 Yes 1{tbl} Take 1 Un travis -acetaminop 3-30 tablet by ity of hen 5-325 00:00: mouth 4 [place] mg tablet 00 ([facility]) [facility] [place]. pregabalin 2023-0 Yes 150mg Take 1 Univ ers 150 mg 3-30 capsule by ity of capsule 00:00: mouth in [place] the Medical morning Branch and 1 capsule in the evening. meloxicam 2023-0 Yes Univers 15 mg 3-30 ity of tablet 00:00: [place] 00 [facility] Branch HYDROcodone 2023-0 Yes 1{tbl} Take 1 Un travis -acetaminop 3-30 tablet by ity of hen 5-325 00:00: mouth 4 [place] mg tablet 00 ([facility]) [facility] times [place]. pregabalin 2023-0 Yes 150mg Take 1 Univ ers 150 mg 3-30 capsule by ity of capsule 00:00: mouth in [place] the Medical morning Branch and 1 capsule in the evening. meloxicam 2023-0 Yes Univers 15 mg 3-30 ity of tablet 00:00: [place] 00 [facility] Branch HYDROcodone 2023-0 Yes 1{tbl} Take 1 Un travis -acetaminop 3-30 tablet by ity of hen 5-325 00:00: mouth 4 [place] mg tablet 00 (four) Medical times [place] daily. pregabalin 2023-0 Yes 150mg Take 1 Univ ers 150 mg 3-30 capsule by ity of capsule 00:00: mouth in [place] the Medical morning Branch and 1 capsule in the evening. meloxicam 2023-0 Yes Univers 15 mg 3-30 ity of tablet 00:00: [place] [facility] Branch HYDROcodone 2023-0 Yes 1{tbl} Take 1 Un travis -acetaminop 3-30 tablet by ity of hen 5-325 00:00: mouth 4 [place] mg tablet ([facility]) [facility] times [place]. pregabalin 2023-0 Yes 150mg Take 1 Univ ers 150 mg 3-30 capsule by ity of capsule 00:00: mouth in [place] the Medical morning Branch and 1 capsule in the evening. meloxicam 2023-0 Yes Univers 15 mg 3-30 ity of tablet 00:00: [place] [facility] Branch HYDROcodone 2023-0 Yes 1{tbl} Take 1 Un travis -acetaminop 3-30 tablet by ity of hen 5-325 00:00: mouth 4 [place] mg tablet ([facility]) [facility] daily. pregabalin 2023-0 Yes 150mg Take 1 Univ ers 150 mg 3-30 capsule by ity of capsule 00:00: mouth in [place] the [facility] morning Branch and 1 capsule in the evening. meloxicam 2023-0 Yes Univers 15 mg 3-30 ity of tablet 00:00: [place] [facility] Branch HYDROcodone 2023-0 Yes 1{tbl} Take 1 Un travis -acetaminop 3-30 tablet by ity of hen 5-325 00:00: mouth 4 [place] mg tablet ([facility]) [facility] daily. pregabalin 2023-0 Yes 150mg Take 1 Univ ers 150 mg 3-30 capsule by ity of capsule 00:00: mouth in [place] the [facility] morning Branch and 1 capsule in the evening. meloxicam 2023-0 Yes Univers 15 mg 3-30 ity of tablet 00:00: [place] [facility] Branch HYDROcodone 2023-0 Yes 1{tbl} Take 1 Un travis -acetaminop 3-30 tablet by ity of hen 5-325 00:00: mouth 4 [place] mg tablet ([facility]) [facility] times [place] daily. pregabalin 2023-0 Yes 150mg Take 1 Univ ers 150 mg 3-30 capsule by ity of capsule 00:00: mouth in [place] the [facility] morning Branch and 1 capsule in the evening. meloxicam 2023-0 Yes Univers 15 mg 3-30 ity of tablet 00:00: [place] [facility] Branch HYDROcodone 2023-0 Yes 1{tbl} Take 1 Un travis -acetaminop 3-30 tablet by ity of hen 5-325 00:00: mouth 4 [place] mg tablet 00 (four) Medical times [place] daily. pregabalin 2023-0 Yes 150mg Take 1 Univ ers 150 mg 3-30 capsule by ity of capsule 00:00: mouth in [place] the Medical morning Branch and 1 capsule in the evening. meloxicam 2023-0 Yes Univers 15 mg 3-30 ity of tablet 00:00: [place] [facility] Branch HYDROcodone 2023-0 Yes 1{tbl} Take 1 Un travis -acetaminop 3-30 tablet by ity of hen 5-325 00:00: mouth 4 [place] mg tablet 00 ([facility]) Medical times [place] daily. pregabalin 2023-0 Yes 150mg Take 1 Univ ers 150 mg 3-30 capsule by ity of capsule 00:00: mouth in [place] the Medical morning Branch and 1 capsule in the evening. meloxicam 2023-0 Yes Univers 15 mg 3-30 ity of tablet 00:00: [place] [facility] Branch HYDROcodone 2023-0 Yes 1{tbl} Take 1 Un travsi -acetaminop 3-30 tablet by ity of hen 5-325 00:00: mouth 4 [place] mg tablet ([facility]) [facility] times [place] daily. pregabalin 2023-0 Yes 150mg Take 1 Univ ers 150 mg 3-30 capsule by ity of capsule 00:00: mouth in [place] the Medical morning Branch and 1 capsule in the evening. meloxicam 2023-0 Yes Univers 15 mg 3-30 ity of tablet 00:00: [place] [facility] Branch HYDROcodone 2023-0 Yes 1{tbl} Take 1 Un travis -acetaminop 3-30 tablet by ity of hen 5-325 00:00: mouth 4 [place] mg tablet 00 ([facility]) Medical times [place] daily. pregabalin 2023-0 Yes 150mg Take 1 Univ ers 150 mg 3-30 capsule by ity of capsule 00:00: mouth in [place] the Medical morning Branch and 1 capsule in the evening. meloxicam 2023-0 Yes Univers 15 mg 3-30 ity of tablet 00:00: [place] [facility] Branch HYDROcodone 2023-0 Yes 1{tbl} Take 1 Un travis -acetaminop 3-30 tablet by ity of hen 5-325 00:00: mouth 4 [place] mg tablet 00 ([facility]) Medical times [place] daily. pregabalin 2023-0 Yes 150mg Take 1 Univ ers 150 mg 3-30 capsule by ity of capsule 00:00: mouth in [place] the Medical morning Branch and 1 capsule in the evening. meloxicam 2023-0 Yes Univers 15 mg 3-30 ity of tablet 00:00: [place] 00 [facility] Branch HYDROcodone 2023-0 Yes 1{tbl} Take 1 Un travis -acetaminop 3-30 tablet by ity of hen 5-325 00:00: mouth 4 [place] mg tablet 00 (four) Medical times [place] daily. pregabalin 2023-0 Yes 150mg Take 1 Univ ers 150 mg 3-30 capsule by ity of capsule 00:00: mouth in [place] the Medical morning Branch and 1 capsule in the evening. meloxicam 2023-0 Yes Univers 15 mg 3-30 ity of tablet 00:00: [place] [facility] Branch HYDROcodone 2023-0 Yes 1{tbl} Take 1 Un travis -acetaminop 3-30 tablet by ity of hen 5-325 00:00: mouth 4 [place] mg tablet 00 ([facility]) [facility] times [place] daily. pregabalin 2023-0 Yes 150mg Take 1 Univ ers 150 mg 3-30 capsule by ity of capsule 00:00: mouth in [place] the Medical morning Branch and 1 capsule in the evening. meloxicam 2023-0 Yes Univers 15 mg 3-30 ity of tablet 00:00: [place] [facility] Branch HYDROcodone 2023-0 Yes 1{tbl} Take 1 Un travis -acetaminop 3-30 tablet by ity of hen 5-325 00:00: mouth 4 [place] mg tablet 00 (four) Medical times [place] daily. pregabalin 2023-0 Yes 150mg Take 1 Univ ers 150 mg 3-30 capsule by ity of capsule 00:00: mouth in [place] the Medical morning Branch and 1 capsule in the evening. meloxicam 2023-0 Yes Univers 15 mg 3-30 ity of tablet 00:00: [address] Branch HYDROcodone 2023-0 Yes 1{tbl} Take 1 Un travis -acetaminop 3-30 tablet by ity of hen 5-325 00:00: mouth 4 [place] mg tablet 00 (four) Medical times [place] daily. pregabalin 2023-0 Yes 150mg Take 1 Univ ers 150 mg 3-30 capsule by ity of capsule 00:00: mouth in [place] the Medical morning Branch and 1 capsule in the evening. meloxicam 2023-0 Yes Univers 15 mg 3-30 ity of tablet 00:00: [place] [facility] Branch HYDROcodone 2023-0 Yes 1{tbl} Take 1 Un travis -acetaminop 3-30 tablet by ity of hen 5-325 00:00: mouth 4 [place] mg tablet 00 (four) Medical times [place] daily. pregabalin 2023-0 Yes 150mg Take 1 Univ ers 150 mg 3-30 capsule by ity of capsule 00:00: mouth in [place] the Medical morning Branch and 1 capsule in the evening. meloxicam 2023-0 Yes Univers 15 mg 3-30 ity of tablet 00:00: [place] [facility] Branch HYDROcodone 2023-0 Yes 1{tbl} Take 1 Un travis -acetaminop 3-30 tablet by ity of hen 5-325 00:00: mouth 4 [place] mg tablet 00 ([facility]) Medical times [place] daily. pregabalin 2023-0 Yes 150mg Take 1 Univ ers 150 mg 3-30 capsule by ity of capsule 00:00: mouth in [place] the Medical morning Branch and 1 capsule in the evening. meloxicam 2023-0 Yes Univers 15 mg 3-30 ity of tablet 00:00: [place] [facility] Branch HYDROcodone 2023-0 Yes 1{tbl} Take 1 Un travis -acetaminop 3-30 tablet by ity of hen 5-325 00:00: mouth 4 [place] mg tablet 00 (four) Medical times Branch daily. pregabalin 2023-0 Yes 150mg Take 1 Univ ers 150 mg 3-30 capsule by ity of capsule 00:00: mouth in [place] the Medical morning Branch and 1 capsule in the evening. meloxicam 2023-0 Yes Univers 15 mg 3-30 ity of tablet 00:00: [place] [facility] Branch HYDROcodone 2023-0 Yes 1{tbl} Take 1 Un travis -acetaminop 3-30 tablet by ity of hen 5-325 00:00: mouth 4 [place] mg tablet 00 (four) Medical times Branch daily. pregabalin 2023-0 Yes 150mg Take 1 Univ ers 150 mg 3-30 capsule by ity of capsule 00:00: mouth in [place] the Medical morning Branch and 1 capsule in the evening. meloxicam 2023-0 Yes Univers 15 mg 3-30 ity of tablet 00:00: [place] [facility] Branch HYDROcodone 2023-0 Yes 1{tbl} Take 1 Un travis -acetaminop 3-30 tablet by ity of hen 5-325 00:00: mouth 4 [place] mg tablet 00 (four) Medical times [place] daily. pregabalin 2023-0 Yes 150mg Take 1 Univ ers 150 mg 3-30 capsule by ity of capsule 00:00: mouth in [place] the Medical morning Branch and 1 capsule in the evening. meloxicam 2023-0 Yes Univers 15 mg 3-30 ity of tablet 00:00: [place] [facility] Branch HYDROcodone 2023-0 Yes 1{tbl} Take 1 Un travis -acetaminop 3-30 tablet by ity of hen 5-325 00:00: mouth 4 [place] mg tablet (four) Medical times [place] daily. pregabalin 2023-0 Yes 150mg Take 1 Univ ers 150 mg 3-30 capsule by ity of capsule 00:00: mouth in [place] the Medical morning Branch and 1 capsule in the evening. meloxicam 2023-0 Yes Univers 15 mg 3-30 ity of tablet 00:00: [place] [facility] Branch pregabalin 2023-0 Yes 150mg Take 1 Univ ers 150 mg 3-30 capsule by ity of capsule 00:00: mouth in [place] the Medical morning Branch and 1 capsule in the evening. meloxicam 2023-0 Yes Univers 15 mg 3-30 ity of tablet 00:00: [place] [facility] Branch pregabalin 2023-0 Yes 150mg Take 1 Univ ers 150 mg 3-30 capsule by ity of capsule 00:00: mouth in [place] the Medical morning Branch and 1 capsule in the evening. meloxicam 2023-0 Yes Univers 15 mg 3-30 ity of tablet 00:00: [place] [address] Medical Branch pregabalin 2023-0 Yes 150mg Take 1 Univ ers 150 mg 3-30 capsule by ity of capsule 00:00: mouth in [place] [address] the Medical morning Branch and 1 capsule in the evening. meloxicam 2023-0 Yes Univers 15 mg 3-30 ity of tablet 00:00: [place] [address] Medical Branch pregabalin 2023-0 Yes 150mg Take 1 Univ ers 150 mg 3-30 capsule by ity of capsule 00:00: mouth in [place] [address] the Medical morning Branch and 1 capsule in the evening. meloxicam 2023-0 Yes Univers 15 mg 3-30 ity of tablet 00:00: [place] [address] Medical Branch pregabalin 2023-0 Yes 150mg Take 1 Univ ers 150 mg 3-30 capsule by ity of capsule 00:00: mouth in [place] [address] the Medical morning Branch and 1 capsule in the evening. meloxicam 2023-0 Yes Univers 15 mg 3-30 ity of tablet 00:00: [place] [address] Medical Branch pregabalin 2023-0 Yes 150mg Take 1 Univ ers 150 mg 3-30 capsule by ity of capsule 00:00: mouth in [place] [address] the Medical morning Branch and 1 capsule in the evening. meloxicam 2023-0 Yes Univers 15 mg 3-30 ity of tablet 00:00: [place] [address] Medical Branch pregabalin 2023-0 Yes 150mg Take 1 Univ ers 150 mg 3-30 capsule by ity of capsule 00:00: mouth in [place] [address] the [facility] morning [place] and 1 capsule in the evening. meloxicam 2023-0 Yes Univers 15 mg 3-30 ity of tablet 00:00: [address] Branch pregabalin 2023-0 Yes 150mg Take 1 Univ ers 150 mg 3-30 capsule by ity of capsule 00:00: mouth in [place] [address] the [facility] morning [place] and 1 capsule in the evening. meloxicam 2023-0 Yes Univers 15 mg 3-30 ity of tablet 00:00: [address] Branch pregabalin 2023-0 Yes 150mg Take 1 Univ ers 150 mg 3-30 capsule by ity of capsule 00:00: mouth in [place] [address] the Medical morning [place] and 1 capsule in the evening. meloxicam 2023-0 Yes [facility] 15 mg 3-30 ity of tablet 00:00: [place] [address] Medical Branch pregabalin 2023-0 Yes 150mg Take 1 Univ ers 150 mg 3-30 capsule by ity of capsule 00:00: mouth in [place] [address] the [facility] morning [place] and 1 capsule in the evening. meloxicam 2023-0 Yes [facility] 15 mg 3-30 ity of tablet 00:00: [place] [facility] Branch HYDROcodone 2023-0 Yes 1{tbl} Take 1 Un travis -acetaminop 3-30 tablet by ity of hen 5-325 00:00: mouth 4 [place] mg tablet ([facility]) [facility] times [place] daily. pregabalin 2023-0 Yes 150mg Take 1 Univ ers 150 mg 3-30 capsule by ity of capsule 00:00: mouth in [place] the Medical morning Branch and 1 capsule in the evening. meloxicam 2023-0 Yes Univers 15 mg 3-30 ity of tablet 00:00: [place] [facility] Branch HYDROcodone 2023-0 Yes 1{tbl} Take 1 Un travis -acetaminop 3-30 tablet by ity of hen 5-325 00:00: mouth 4 [place] mg tablet ([facility]) [facility] daily. pregabalin 2023-0 Yes 150mg Take 1 Univ ers 150 mg 3-30 capsule by ity of capsule 00:00: mouth in [place] the [facility] morning Branch and 1 capsule in the evening. meloxicam 2023-0 Yes Univers 15 mg 3-30 ity of tablet 00:00: [place] [facility] Branch HYDROcodone 2023-0 Yes 1{tbl} Take 1 Un travis -acetaminop 3-30 tablet by ity of hen 5-325 00:00: mouth 4 [place] mg tablet ([facility]) [facility] daily. pregabalin 2023-0 Yes 150mg Take 1 Univ ers 150 mg 3-30 capsule by ity of capsule 00:00: mouth in [place] the [facility] morning Branch and 1 capsule in the evening. meloxicam 2023-0 Yes [facility] 15 mg 3-30 ity of tablet 00:00: [place] [facility] Branch HYDROcodone 2023-0 Yes 1{tbl} Take 1 Un travis -acetaminop 3-30 tablet by ity of hen 5-325 00:00: mouth 4 [place] mg tablet ([facility]) [facility] times [place] daily. pregabalin 2023-0 Yes 150mg Take 1 Univ ers 150 mg 3-30 capsule by ity of capsule 00:00: mouth in [place] [address] the Medical morning Branch and 1 capsule in the evening. meloxicam 2023-0 Yes Univers 15 mg 3-30 ity of tablet 00:00: [address] Branch HYDROcodone 2023-0 Yes 1{tbl} Take 1 Un travis -acetaminop 3-30 tablet by ity of hen 5-325 00:00: mouth 4 [place] mg tablet 00 (four) Medical times Branch daily. pregabalin 2022-0 Yes 150mg Take 1 Univ ers 150 mg 3-30 capsule by ity of capsule 00:00: mouth in [place] 00 the Medical morning Branch and 1 capsule in the evening. meloxicam 2022-0 Yes [facility] 15 mg 3-30 ity of tablet 00:00: [place] 00 Medical Branch HYDROcodone 2022-0 Yes 1{tbl} Take 1 Un travis -acetaminop 3-30 tablet by ity of hen 5-325 00:00: mouth 4 [place] mg tablet 00 (four) Medical times Branch daily. HYDROcodone 2022-0 2022- No 1{tbl} Take 1 U nivers -acetaminop 3-30 10-05 tablet by it y of hen 5-325 00:00: 00:[place] tablet [place] :[place] (four) Medical times Branch daily. HYDROcodone 2022-0 3- No 1{tbl} Take 1 U nivers -acetaminop 3-30 10-05 tablet by it y of hen 5-325 00:00: 00:[place] tablet [place] :00 (four) Medical times Branch daily. cyclobenzap 2022-0 Yes TAKE 1 Univ ers rine 10 mg 3-15 TABLET BY ity of tablet 00:00: MOUTH [place] 00 THREE Medical TIMES A Branch DAY NEEDED FOR 30 DAYS amitriptyli 2022-0 Yes TAKE 1 [facility] 50 mg 3-15 TABLET BY [facility] tablet 00:00: MOUTH [place] 00 EVERY DAY Medical AT BEDTIME Branch FOR 30 DAYS cyclobenzap 2022-0 Yes TAKE 1 [facility] rine 10 mg 3-15 TABLET BY [facility] of tablet 00:00: MOUTH [place] 00 THREE Medical TIMES A Branch DAY NEEDED FOR 30 DAYS amitriptyli 2022-0 Yes TAKE 1 [facility] 50 mg 3-15 TABLET BY [facility] of tablet 00:00: MOUTH [place] 00 EVERY DAY Medical AT BEDTIME Branch FOR 30 DAYS cyclobenzap 2022-0 Yes TAKE 1 [facility] rine 10 mg 3-15 TABLET BY it[facility] of tablet 00:00: MOUTH [place] 00 THREE Medical TIMES A Branch DAY NEEDED FOR 30 DAYS amitriptyli 2023-0 Yes TAKE 1 [facility] 50 mg 3-15 TABLET BY [facility] tablet 00:00: [facility] EVERY DAY Medical AT BEDTIME Branch FOR 30 DAYS cyclobenzap 2023-0 Yes TAKE 1 [facility] rine 10 mg 3-15 TABLET BY ity of tablet 00:00: MOUTH THREE Medical TIMES A Branch DAY NEEDED FOR 30 DAYS amitriptyli 2023-0 Yes TAKE 1 [facility] 50 mg 3-15 TABLET BY [facility] of tablet 00:00: [facility] EVERY DAY Medical AT BEDTIME Branch FOR 30 DAYS cyclobenzap 3-0 Yes TAKE 1 [facility]ine 10 mg 3-15 TABLET BY [facility] of tablet 00:00: [facility] THREE Medical TIMES A Branch DAY NEEDED FOR 30 DAYS amitriptyli 2023-0 Yes TAKE 1 [facility] 50 mg 3-15 TABLET BY [facility] tablet 00:00: [facility] cyclobenzap 3-0 Yes TAKE 1 [facility] rine 10 mg 3-15 TABLET BY [facility] of tablet 00:00: [facility] THREE Medical TIMES A Branch DAY NEEDED FOR 30 DAYS amitriptyli 3-0 Yes TAKE 1 [facility] 50 mg 3-15 TABLET BY [facility] tablet 00:00: [facility] cyclobenzap 3-0 Yes TAKE 1 [facility] rine 10 mg 3-15 TABLET BY [facility] tablet 00:00: [facility] THREE Medical TIMES A Branch DAY NEEDED FOR 30 DAYS amitriptyli 2023-0 Yes TAKE 1 [facility] 50 mg 3-15 TABLET BY [facility] of tablet 00:00: [facility] EVERY DAY Medical AT BEDTIME Branch FOR 30 DAYS cyclobenzap 2023-0 Yes TAKE 1 [facility] 10 mg 3-15 TABLET BY [facility] tablet 00:00: [facility] THREE Medical TIMES A Branch DAY NEEDED FOR 30 DAYS amitriptyli 2023-0 Yes TAKE 1 [facility] 50 mg 3-15 TABLET BY [facility] tablet 00:00: [facility] EVERY DAY Medical AT BEDTIME Branch FOR [...] 3-15 TABLET BY [facility] of tablet 00:00: [facility] EVERY DAY Medical AT BEDTIME Branch FOR 30 DAYS cyclobenzap 2023-0 Yes TAKE 1 [facility] 10 mg 3-15 TABLET BY [facility] of tablet 00:00: MOUTH THREE Medical TIMES A Branch DAY NEEDED FOR 30 DAYS amitriptyli 2023-0 Yes TAKE 1 [facility] 50 mg 3-15 TABLET BY [facility] tablet 00:00: [facility] EVERY DAY Medical AT BEDTIME Branch FOR [...] 3-15 TABLET BY [facility] of tablet 00:00: [facility] EVERY DAY Medical AT BEDTIME Branch FOR 30 DAYS cyclobenzap 2023-0 Yes TAKE 1 [facility] rine 10 mg 3-15 TABLET BY [facility]y of tablet 00:00: MOUTH 00 THREE Medical TIMES A Branch DAY NEEDED FOR 30 DAYS amitriptyli 2023-0 Yes TAKE 1 [facility] 50 mg 3-15 TABLET BY [facility] tablet 00:00: [facility]TH [facility] cyclobenzap 3-0 Yes TAKE 1 [facility] r[facility] 10 mg 3-15 TABLET BY [facility] of tablet 00:00: MOUTH THREE Medical TIMES A Branch DAY NEEDED FOR 30 DAYS amitriptyli 2023-0 Yes TAKE 1 [facility] 50 mg 3-15 TABLET BY [facility] tablet 00:00: [facility] cyclobenzap 3-0 Yes TAKE 1 [facility] rine 10 mg 3-15 TABLET BY [facility] of tablet 00:00: THREE Medical TIMES A Branch DAY NEEDED FOR 30 DAYS amitriptyli 2023-0 Yes TAKE 1 [facility] 50 mg 3-15 TABLET BY [facility] tablet 00:00: [facility] DAYS cyclobenzap 3-0 Yes TAKE 1 [facility] rine 10 mg 3-15 TABLET BY [facility] of tablet 00:00: [facility] THREE Medical TIMES A Branch DAY NEEDED FOR 30 DAYS amitriptyli 2023-0 Yes TAKE 1 [facility] 50 mg 3-15 TABLET BY [facility] tablet 00:00: [facility] DAY [facility] FOR [facility] DAYS cyclobenzap [...] 3-15 TABLET BY [facility] tablet 00:00: [facility] EVERY DAY Medical AT BEDTIME [place] FOR 30 DAYS cyclobenzap 3-0 Yes TAKE 1 [facility] rine 10 mg 3-15 TABLET BY [facility] of tablet 00:00: [facility] THREE Medical TIMES A Branch DAY NEEDED FOR 30 DAYS amitriptyli 2023-0 Yes TAKE 1 [facility] 50 mg 3-15 TABLET BY [facility] tablet 00:00: [facility] FOR [facility] DAYS cyclobenzap 3-0 Yes TAKE 1 [facility] 10 mg 3-15 TABLET BY [facility] of tablet 00:00: [facility] THREE Medical TIMES A Branch DAY NEEDED FOR 30 DAYS amitriptyli 2023-0 Yes TAKE 1 [facility] 50 mg 3-15 TABLET BY [facility] tablet 00:00: [facility] EVERY DAY Medical AT BEDTIME Branch FOR 30 DAYS cyclobenzap 3-0 Yes TAKE 1 [facility] 10 mg 3-15 TABLET BY ity of tablet 00:00: MOUTH THREE Medical TIMES A Branch DAY NEEDED FOR 30 DAYS amitriptyli 2023-0 Yes TAKE 1 [facility] 50 mg 3-15 TABLET BY [facility] tablet 00:00: [facility] 00 EVERY DAY Medical AT BEDTIME Branch [...] 3-15 TABLET BY [facility] of tablet 00:00: [facility] EVERY DAY Medical AT BEDTIME Branch FOR [...] 3-15 TABLET BY [facility] of tablet 00:00: [facility] EVERY DAY Medical AT BEDTIME Branch FOR 30 DAYS cyclobenzap 3-0 Yes TAKE 1 [facility] 10 mg 3-15 TABLET BY [facility] tablet 00:00: [facility] THREE Medical TIMES A Branch DAY NEEDED FOR 30 DAYS amitriptyli 2023-0 Yes TAKE 1 [facility] 50 mg 3-15 TABLET BY [facility] tablet 00:00: [facility] EVERY DAY Medical AT BEDTIME Branch FOR 30 DAYS cyclobenzap 2022-0 Yes TAKE 1 [facility] 10 mg 3-15 TABLET BY [facility] tablet 00:00: [facility] THREE Medical TIMES A Branch DAY NEEDED FOR 30 DAYS amitriptyli 3-0 Yes TAKE 1 [facility] 50 mg 3-15 TABLET BY [facility] of tablet 00:00: [facility] EVERY DAY Medical AT BEDTIME Branch FOR 30 DAYS cyclobenzap 3-0 Yes TAKE 1 [facility] 10 mg 3-15 TABLET BY [facility] of tablet 00:00: [facility] THREE Medical TIMES A Branch DAY NEEDED FOR 30 DAYS amitriptyli 3-0 Yes TAKE 1 [facility] 50 mg 3-15 TABLET BY [facility] of tablet 00:00: [facility] EVERY DAY Medical AT BEDTIME [place] FOR 30 DAYS cyclobenzap 3-0 Yes TAKE 1 [facility] 10 mg 3-15 TABLET BY [facility] of tablet 00:00: [facility] THREE Medical TIMES A Branch DAY NEEDED FOR 30 DAYS amitriptyli 2023-0 Yes TAKE 1 [facility] 50 mg 3-15 TABLET BY [facility] of tablet 00:00: [facility] EVERY DAY Medical AT BEDTIME Branch FOR 30 DAYS cyclobenzap 3-0 Yes TAKE 1 [facility] 10 mg 3-15 TABLET BY [facility] tablet 00:00: [facility] THREE Medical TIMES A Branch DAY NEEDED FOR 30 DAYS amitriptyli 2023-0 Yes TAKE 1 [facility] 50 mg 3-15 TABLET BY [facility] tablet 00:00: [facility] EVERY DAY Medical AT BEDTIME Branch FOR 30 DAYS cyclobenzap 2023-0 Yes TAKE 1 [facility] 10 mg 3-15 TABLET BY it[facility] of tablet 00:00: MOUTH THREE Medical TIMES A Branch DAY NEEDED FOR 30 DAYS amitriptyli 2023-0 Yes TAKE 1 [facility] 50 mg 3-15 TABLET BY [facility] tablet 00:00: [facility] EVERY DAY Medical AT BEDTIME Branch FOR 30 DAYS cyclobenzap 2023-0 Yes TAKE 1 [facility] 10 mg 3-15 TABLET BY [facility] tablet 00:00: [facility] THREE Medical TIMES A Branch DAY NEEDED FOR 30 DAYS amitriptyli 2023-0 Yes TAKE 1 [facility] 50 mg 3-15 TABLET BY [facility] tablet 00:00: [facility] EVERY DAY Medical AT BEDTIME Branch FOR 30 DAYS cyclobenzap 3-0 Yes TAKE 1 [facility] 10 mg 3-15 TABLET BY [facility] of tablet 00:00: [facility] THREE Medical TIMES A Branch DAY NEEDED FOR 30 DAYS amitriptyli 2023-0 Yes TAKE 1 [facility] 50 mg 3-15 TABLET BY [facility] of tablet 00:00: [facility] EVERY DAY Medical AT BEDTIME Branch FOR 30 DAYS cyclobenzap 3-0 Yes TAKE 1 [facility] 10 mg 3-15 TABLET BY [facility] of tablet 00:00: [facility] THREE Medical TIMES A Branch DAY NEEDED FOR 30 DAYS amitriptyli 2023-0 Yes TAKE 1 [facility] 50 mg 3-15 TABLET BY [facility] of tablet 00:00: [facility] EVERY DAY Medical AT BEDTIME Branch FOR 30 DAYS cyclobenzap 2023-0 Yes TAKE 1 [facility] 10 mg 3-15 TABLET BY [facility] of tablet 00:00: [facility] THREE Medical TIMES A Branch DAY NEEDED FOR 30 DAYS amitriptyli 2023-0 Yes TAKE 1 [facility] 50 mg 3-15 TABLET BY [facility] of tablet 00:00: [facility] EVERY DAY Medical AT BEDTIME Branch FOR 30 DAYS cyclobenzap 2023-0 Yes TAKE 1 [facility] 10 mg 3-15 TABLET BY [facility] of tablet 00:00: [facility] THREE Medical TIMES A Branch DAY NEEDED FOR 30 DAYS amitriptyli 2023-0 Yes TAKE 1 [facility] 50 mg 3-15 TABLET BY [facility]y of tablet 00:00: [facility] EVERY DAY Medical AT BEDTIME Branch FOR [...] 3-15 TABLET BY [facility]y of tablet 00:00: [facility] EVERY DAY Medical AT BEDTIME Branch FOR 30 DAYS cyclobenzap 3-0 Yes TAKE 1 [facility]ine 10 mg 3-15 TABLET BY ity of tablet 00:00: THREE Medical TIMES A Branch DAY NEEDED FOR 30 DAYS amitriptyli 2023-0 Yes TAKE 1 [facility] 50 mg 3-15 TABLET BY [facility] of tablet 00:00: [facility] EVERY DAY Medical AT BEDTIME Branch FOR 30 DAYS cyclobenzap 2023-0 Yes TAKE 1 [facility] 10 mg 3-15 TABLET BY [facility]y of tablet 00:00: [facility] THREE Medical TIMES A Branch DAY NEEDED FOR 30 DAYS amitriptyli 2023-0 Yes TAKE 1 [facility] 50 mg 3-15 TABLET BY [facility]y of tablet 00:00: [facility] EVERY DAY Medical AT BEDTIME Branch FOR 30 DAYS cyclobenzap 2023-0 Yes TAKE 1 [facility] 10 mg 3-15 TABLET BY ity of tablet 00:00: MOUTH THREE Medical TIMES A Branch DAY NEEDED FOR 30 DAYS amitriptyli 2023-0 Yes TAKE 1 [facility] 50 mg 3-15 TABLET BY ity of tablet 00:00: [facility] EVERY DAY Medical AT BEDTIME Branch FOR [...] TABLET BY ity of tablet 00:00: MOUTH [place] 00 THREE Medical TIMES A Branch DAY NEEDED FOR 30 DAYS amitriptyli 2022-0 Yes TAKE 1 [facility] 50 mg 3-15 TABLET BY ity of tablet 00:00: MOUTH [place] 00 EVERY DAY Medical AT [facility] FOR 30 DAYS cyclobenzap 2022-0 Yes TAKE 1 [facility] rine 10 mg 3-15 TABLET BY ity of tablet 00:00: MOUTH [place] 00 THREE Medical TIMES A Branch DAY NEEDED FOR 30 DAYS amitriptyli 2022-0 Yes TAKE 1 [facility] 50 mg 3-15 TABLET BY ity of tablet 00:00: MOUTH [place] 00 EVERY DAY Medical AT [facility] FOR 30 DAYS cyclobenzap 2022-0 Yes TAKE 1 [facility]ine 10 mg 3-15 TABLET BY ity of tablet 00:00: MOUTH [place] 00 THREE Medical TIMES A Branch DAY NEEDED FOR 30 DAYS amitriptyli 2022-0 Yes TAKE 1 [facility] 50 mg 3-15 TABLET BY ity of tablet 00:00: MOUTH [place] 00 EVERY DAY Medical AT [facility] FOR 30 DAYS NaCl 0.9% 2022- No [...] [place] mg 00 :00 dose, On Medical [facility] Branch 11/03/22 at 0900, STAT diphenhydrA 2022-0 2022- No 25mg 25 mg, Uni vers MINE 11-03 Slow IV ity of (BENADRYL) 15:00: 15:18 Push, [place] injection 00 :00 ONCE, 1 Medical 25 mg dose, On Branch Wed11/03/22 at 0900, STAT LORazepam 2022-0 Yes [id number] 1mg Take 1 U nivers (ATIVAN) 1 2-28 tablet by ity of mg tablet 00:00: mouth 2 [place] 00 (two) Medical times Branch daily as needed for Anxiety or Agitation. hydrOXYzine 2023-0 Yes [id number] 25mg Take 1 [facility] (VISTARIL) 2-28 capsule by ity of 25 mg 00:00: mouth 3 [place] capsule 00 (three) Medical times Branch daily as needed for Anxiety. LORazepam 2023-0 Yes [id number] 1mg Take 1 U nivers (ATIVAN) 1 2-28 tablet by ity of mg tablet 00:00: mouth 2 [place] 00 (two) Medical times Branch daily as needed for Anxiety or Agitation. hydrOXYzine 2023-0 Yes [id number] 25mg Take 1 [facility] (VISTARIL) 2-28 capsule by ity of 25 mg 00:00: mouth 3 [place] capsule 00 (three) Medical times Branch daily as needed for Anxiety. LORazepam 2023-0 Yes [id number] 1mg Take 1 [facility] nivers (ATIVAN) 1 2-28 tablet by ity of mg tablet 00:00: mouth 2 [place] 00 (two) Medical times Branch daily as needed for Anxiety or Agitation. hydrOXYzine 2023-0 Yes [id number] 25mg Take 1 [facility] (VISTARIL) 2-28 capsule by ity of 25 mg 00:00: mouth 3 [place] capsule 00 (three) Medical times Branch daily as needed for Anxiety. LORazepam 2023-0 Yes [id number] 1mg Take 1 [facility] nivers (ATIVAN) 1 2-28 tablet by ity of mg tablet 00:00: mouth 2 [place] 00 (two) Medical times Branch daily as needed for Anxiety or Agitation. hydrOXYzine 2023-0 Yes [id number] 25mg Take 1 [facility] (VISTARIL) 2-28 capsule by ity of 25 mg 00:00: mouth 3 [place] capsule 00 (three) Medical times Branch daily as needed for Anxiety. LORazepam 2023-0 Yes [id number] 1mg Take 1 [facility] nivers (ATIVAN) 1 2-28 tablet by ity of mg tablet 00:00: mouth 2 [place] 00 (two) Medical times Branch daily as needed for Anxiety or Agitation. hydrOXYzine 2023-0 Yes [id number] 25mg Take 1 [facility] (VISTARIL) 2-28 capsule by ity of 25 mg 00:00: mouth 3 [place] capsule 00 (three) Medical times Branch daily as needed for Anxiety. LORazepam 2023-0 Yes [id number] 1mg Take 1 [facility] nivers (ATIVAN) 1 2-28 tablet by ity of mg tablet 00:00: mouth 2 [place] 00 (two) Medical times Branch daily as needed for Anxiety or Agitation. hydrOXYzine 2023-0 Yes [id number] 25mg Take 1 [facility] (VISTARIL) 2-28 capsule by ity of 25 mg 00:00: mouth 3 [place] capsule 00 (three) Medical times Branch daily as needed for Anxiety. LORazepam 2023-0 Yes [id number] 1mg Take 1 [facility] nivers (ATIVAN) 1 2-28 tablet by ity of mg tablet 00:00: mouth 2 [place] 00 (two) Medical times Branch daily as needed for Anxiety or Agitation. hydrOXYzine 2023-0 Yes [id number] 25mg Take 1 [facility] (VISTARIL) 2-28 capsule by ity of 25 mg 00:00: mouth 3 [place] capsule 00 (three) Medical times Branch daily as needed for Anxiety. LORazepam 2023-0 Yes [id number] 1mg Take 1 [facility] nivers (ATIVAN) 1 2-28 tablet by ity of mg tablet 00:00: mouth 2 [place] 00 (two) Medical times Branch daily as needed for Anxiety or Agitation. hydrOXYzine 2023-0 Yes [id number] 25mg Take 1 [facility] (VISTARIL) 2-28 capsule by ity of 25 mg 00:00: mouth 3 [place] capsule 00 (three) Medical times Branch daily as needed for Anxiety. LORazepam 2023-0 Yes [id number] 1mg Take 1 [facility] nivers (ATIVAN) 1 2-28 tablet by ity of mg tablet 00:00: mouth 2 [place] 00 (two) Medical times Branch daily as needed for Anxiety or Agitation. hydrOXYzine 2023-0 Yes [id number] 25mg Take 1 [facility] (VISTARIL) 2-28 capsule by ity of 25 mg 00:00: mouth 3 [place] capsule 00 (three) Medical times Branch daily as needed for Anxiety. LORazepam 2023-0 Yes [id number] 1mg Take 1 [facility] nivers (ATIVAN) 1 2-28 tablet by ity of mg tablet 00:00: mouth 2 00 (two) Medical times Branch daily as needed for Anxiety or Agitation. hydrOXYzine 2023-0 Yes [id number] 25mg Take 1 Univers (VISTARIL) 2-28 capsule by ity of 25 mg 00:00: mouth 3 [place] capsule 00 (three) Medical times Branch daily as needed for Anxiety. LORazepam 2023-0 Yes [id number] 1mg Take 1 [facility] nivers (ATIVAN) 1 2-28 tablet by ity of mg tablet 00:00: mouth 2 [place] 00 (two) Medical times Branch daily as needed for Anxiety or Agitation. hydrOXYzine 2023-0 Yes [id number] 25mg Take 1 Univers (VISTARIL) 2-28 capsule by ity of 25 mg 00:00: mouth 3 [place] capsule 00 (three) Medical times Branch daily as needed for Anxiety. LORazepam 2023-0 Yes [id number] 1mg Take 1 [facility] nivers (ATIVAN) 1 2-28 tablet by ity of mg tablet 00:00: mouth 2 (two) Medical times Branch daily as needed for Anxiety or Agitation. hydrOXYzine 2023-0 Yes [id number] 25mg Take 1 [facility] (VISTARIL) 2-28 capsule by ity of 25 mg 00:00: mouth 3 [place] capsule 00 (three) Medical times Branch daily as needed for Anxiety. LORazepam 2023-0 Yes [id number] 1mg Take 1 [facility] nivers (ATIVAN) 1 2-28 tablet by ity of mg tablet 00:00: mouth 2 (two) Medical times Branch daily as needed for Anxiety or Agitation. hydrOXYzine 2023-0 Yes [id number] 25mg Take 1 [facility] (VISTARIL) 2-28 capsule by ity of 25 mg 00:00: mouth 3 [place] capsule 00 (three) Medical times Branch daily as needed for Anxiety. LORazepam 2023-0 Yes [id number] 1mg Take 1 [facility] nivers (ATIVAN) 1 2-28 tablet by ity of mg tablet 00:00: mouth 2 [place] 00 (two) Medical times Branch daily as needed for Anxiety or Agitation. hydrOXYzine 2023-0 Yes [id number] 25mg Take 1 [facility] (VISTARIL) 2-28 capsule by ity of 25 mg 00:00: mouth 3 [place] capsule 00 (three) Medical times Branch daily as needed for Anxiety. LORazepam 2023-0 Yes [id number] 1mg Take 1 U nivers (ATIVAN) 1 2-28 tablet by ity of mg tablet 00:00: mouth 2 [place] 00 (two) Medical times Branch daily as needed for Anxiety or Agitation. hydrOXYzine 2023-0 Yes [id number] 25mg Take 1 [facility] (VISTARIL) 2-28 capsule by ity of 25 mg 00:00: mouth 3 [place] capsule 00 (three) Medical times Branch daily as needed for Anxiety. LORazepam 2023-0 Yes [id number] 1mg Take 1 [facility] nivers (ATIVAN) 1 2-28 tablet by ity of mg tablet 00:00: mouth 2 [place] 00 (two) Medical times Branch daily as needed for Anxiety or Agitation. hydrOXYzine 2023-0 Yes [id number] 25mg Take 1 Univers (VISTARIL) 2-28 capsule by ity of 25 mg 00:00: mouth 3 [place] capsule 00 (three) Medical times Branch daily as needed for Anxiety. LORazepam 2023-0 Yes [id number] 1mg Take 1 [facility] nivers (ATIVAN) 1 2-28 tablet by ity of mg tablet 00:00: mouth 2 (two) Medical times Branch daily as needed for Anxiety or Agitation. hydrOXYzine 2023-0 Yes [id number] 25mg Take 1 [facility] (VISTARIL) 2-28 capsule by ity of 25 mg 00:00: mouth 3 [place] capsule 00 (three) Medical times Branch daily as needed for Anxiety. LORazepam 2023-0 Yes [id number] 1mg Take 1 [facility] nivers (ATIVAN) 1 2-28 tablet by ity of mg tablet 00:00: mouth 2 [place] 00 (two) Medical times Branch daily as needed for Anxiety or Agitation. hydrOXYzine 2023-0 Yes [id number] 25mg Take 1 [facility] (VISTARIL) 2-28 capsule by ity of 25 mg 00:00: mouth 3 [place] capsule 00 (three) Medical times Branch daily as needed for Anxiety. LORazepam 2023-0 Yes [id number] 1mg Take 1 [facility] nivers (ATIVAN) 1 2-28 tablet by ity of mg tablet 00:00: mouth 2 [place] 00 (two) Medical times Branch daily as needed for Anxiety or Agitation. hydrOXYzine 2023-0 Yes [id number] 25mg Take 1 [facility] (VISTARIL) 2-28 capsule by ity of 25 mg 00:00: mouth 3 [place] capsule 00 (three) Medical times Branch daily as needed for Anxiety. LORazepam 2023-0 Yes [id number] 1mg Take 1 U nivers (ATIVAN) 1 2-28 tablet by ity of mg tablet 00:00: mouth 2 [place] 00 (two) Medical times Branch daily as needed for Anxiety or Agitation. hydrOXYzine 2023-0 Yes [id number] 25mg Take 1 [facility] (VISTARIL) 2-28 capsule by ity of 25 mg 00:00: mouth 3 [place] capsule 00 (three) Medical times Branch daily as needed for Anxiety. LORazepam 2023-0 Yes [id number] 1mg Take 1 [facility] nivers (ATIVAN) 1 2-28 tablet by ity of mg tablet 00:00: mouth 2 00 (two) Medical times Branch daily as needed for Anxiety or Agitation. hydrOXYzine 2023-0 Yes [id number] 25mg Take 1 [facility] (VISTARIL) 2-28 capsule by ity of 25 mg 00:00: mouth 3 [place] capsule 00 (three) Medical times Branch daily as needed for Anxiety. LORazepam 2023-0 Yes [id number] 1mg Take 1 U nivers (ATIVAN) 1 2-28 tablet by ity of mg tablet 00:00: mouth 2 00 (two) Medical times Branch daily as needed for Anxiety or Agitation. hydrOXYzine 2023-0 Yes [id number] 25mg Take 1 [facility] (VISTARIL) 2-28 capsule by ity of 25 mg 00:00: mouth 3 [place] capsule 00 (three) Medical times Branch daily as needed for Anxiety. LORazepam 2023-0 Yes [id number] 1mg Take 1 U nivers (ATIVAN) 1 2-28 tablet by ity of mg tablet 00:00: mouth 2 [place] 00 (two) Medical times Branch daily as needed for Anxiety or Agitation. hydrOXYzine 2023-0 Yes [id number] 25mg Take 1 [facility] (VISTARIL) 2-28 capsule by ity of 25 mg 00:00: mouth 3 [place] capsule 00 (three) Medical times Branch daily as needed for Anxiety. LORazepam 2023-0 Yes [id number] 1mg Take 1 U nivers (ATIVAN) 1 2-28 tablet by ity of mg tablet 00:00: mouth 2 [place] (two) Medical times Branch daily as needed for Anxiety or Agitation. hydrOXYzine 2023-0 Yes [id number] 25mg Take 1 [facility] (VISTARIL) 2-28 capsule by ity of 25 mg 00:00: mouth 3 [place] capsule 00 (three) Medical times Branch daily as needed for Anxiety. LORazepam 2023-0 Yes [id number] 1mg Take 1 U nivers (ATIVAN) 1 2-28 tablet by ity of mg tablet 00:00: mouth 2 [place] (two) Medical times Branch daily as needed for Anxiety or Agitation. LORazepam 2023-0 Yes [id number] 1mg Take 1 U nivers (ATIVAN) 1 2-28 tablet by ity of mg tablet 00:00: mouth 2 [place] (two) Medical times Branch daily as needed for Anxiety or Agitation. LORazepam 3-0 Yes [id number] 1mg Take 1 U nivers (ATIVAN) 1 2-28 tablet by ity of mg tablet 00:00: mouth 2 [place] (two) Medical times Branch daily as needed for Anxiety or Agitation. LORazepam 2023-0 Yes [id number] 1mg Take 1 U nivers (ATIVAN) 1 2-28 tablet by ity of mg tablet 00:00: mouth 2 [place] (two) Medical times Branch daily as needed for Anxiety or Agitation. LORazepam 3-0 Yes [id number] 1mg Take 1 U nivers (ATIVAN) 1 2-28 tablet by ity of mg tablet 00:00: mouth 2 [place] (two) Medical times Branch daily as needed for Anxiety or Agitation. LORazepam 2023-0 Yes [id number] 1mg Take 1 U nivers (ATIVAN) 1 2-28 tablet by ity of mg tablet 00:00: mouth 2 [place] (two) Medical times Branch daily as needed for Anxiety or Agitation. LORazepam 2023-0 Yes [id number] 1mg Take 1 U nivers (ATIVAN) 1 2-28 tablet by ity of mg tablet 00:00: mouth 2 [place] (two) Medical times Branch daily as needed for Anxiety or Agitation. LORazepam 2023-0 Yes [id number] 1mg Take 1 [facility] nivers (ATIVAN) 1 2-28 tablet by ity of mg tablet 00:00: mouth (two) Medical times Branch daily as needed for Anxiety or Agitation. LORazepam 2023-0 Yes [id number] 1mg Take 1 U nivers (ATIVAN) 1 2-28 tablet by ity of mg tablet 00:00: mouth (two) Medical times Branch daily as needed for Anxiety or Agitation. LORazepam 2023-0 Yes [id number] 1mg Take 1 U nivers (ATIVAN) 1 2-28 tablet by ity of mg tablet 00:00: mouth (two) Medical times Branch daily as needed for Anxiety or Agitation. LORazepam 2023-0 Yes [id number] 1mg Take 1 U nivers (ATIVAN) 1 2-28 tablet by ity of mg tablet 00:00: mouth (two) Medical times Branch daily as needed for Anxiety or Agitation. LORazepam 2023-0 Yes [id number] 1mg Take 1 U nivers (ATIVAN) 1 2-28 tablet by ity of mg tablet 00:00: mouth (two) Medical times Branch daily as needed for Anxiety or Agitation. LORazepam 2023-0 Yes [id number] 1mg Take 1 U nivers (ATIVAN) 1 2-28 tablet by ity of mg tablet 00:00: mouth (two) Medical times Branch daily as needed for Anxiety or Agitation. LORazepam 2023-0 Yes [id number] 1mg Take 1 [facility] nivers (ATIVAN) 1 2-28 tablet by ity of mg tablet 00:00: mouth (two) Medical times Branch daily as needed for Anxiety or Agitation. LORazepam 2023-0 Yes [id number] 1mg Take 1 [facility] nivers (ATIVAN) 1 2-28 tablet by ity of mg tablet 00:00: mouth (two) Medical times Branch daily as needed for Anxiety or Agitation. LORazepam 2023-0 Yes [id number] 1mg Take 1 U nivers (ATIVAN) 1 2-28 tablet by ity of mg tablet 00:00: mouth (two) Medical times Branch daily as needed for Anxiety or Agitation. LORazepam 2023-0 Yes [id number] 1mg Take 1 [facility] nivers (ATIVAN) 1 2-28 tablet by ity of mg tablet 00:00: mouth 2 (two) Medical times Branch daily as needed for Anxiety or Agitation. LORazepam 2023-0 Yes [id number] 1mg Take 1 U nivers (ATIVAN) 1 2-28 tablet by ity of mg tablet 00:00: mouth 2 [place] (two) Medical times Branch daily as needed for Anxiety or Agitation. LORazepam 2023-0 Yes [id number] 1mg Take 1 [facility] nivers (ATIVAN) 1 2-28 tablet by ity of mg tablet 00:00: mouth 2 (two) Medical times Branch daily as needed for Anxiety or Agitation. LORazepam 2023-0 Yes [id number] 1mg Take 1 [facility] nivers (ATIVAN) 1 2-28 tablet by ity of mg tablet 00:00: mouth 2 (two) Medical times Branch daily as needed for Anxiety or Agitation. LORazepam 2023-0 Yes [id number] 1mg Take 1 [facility] nivers (ATIVAN) 1 2-28 tablet by ity of mg tablet 00:00: mouth 2 (two) Medical times Branch daily as needed for Anxiety or Agitation. LORazepam 2023-0 Yes [id number] 1mg Take 1 U nivers (ATIVAN) 1 2-28 tablet by ity of mg tablet 00:00: mouth 2 (two) Medical times Branch daily as needed for Anxiety or Agitation. LORazepam 2023-0 Yes [id number] 1mg Take 1 [facility] nivers (ATIVAN) 1 2-28 tablet by ity of mg tablet 00:00: mouth 2 [place] (two) Medical times Branch daily as needed for Anxiety or Agitation. hydrOXYzine 2023-0 Yes [id number] 25mg Take 1 [facility] (VISTARIL) 2-28 capsule by ity of 25 mg 00:00: mouth 3 [place] capsule 00 (three) Medical times Branch daily as needed for Anxiety. LORazepam 2023-0 Yes [id number] 1mg Take 1 U nivers (ATIVAN) 1 2-28 tablet by ity of mg tablet 00:00: mouth 2 [place] 00 (two) Medical times Branch daily as needed for Anxiety or Agitation. hydrOXYzine 2023-0 Yes [id number] 25mg Take 1 [facility] (VISTARIL) 2-28 capsule by ity of 25 mg 00:00: mouth 3 [place] capsule 00 (three) Medical times Branch daily as needed for Anxiety. LORazepam 2023-0 Yes [id number] 1mg Take 1 [facility] (ATIVAN) 1 2-28 tablet by ity of mg tablet 00:00: mouth 2 [place] 00 (two) Medical times Branch daily as needed for Anxiety or Agitation. hydrOXYzine 2023-0 Yes [id number] 25mg Take 1 [facility] (VISTARIL) 2-28 capsule by ity of 25 mg 00:00: mouth 3 [place] capsule 00 (three) Medical times Branch daily as needed for Anxiety. LORazepam 2023-0 Yes [id number] 1mg Take 1 [facility] (ATIVAN) 1 2-28 tablet by ity of mg tablet 00:00: mouth 2 [place] 00 (two) Medical times Branch daily as needed for Anxiety or Agitation. hydrOXYzine 2023-0 Yes [id number] 25mg Take 1 [facility] (VISTARIL) 2-28 capsule by ity of 25 mg 00:00: mouth 3 [place] capsule 00 (three) Medical times Branch daily as needed for Anxiety. LORazepam 2023-0 Yes [id number] 1mg Take 1 [facility] (ATIVAN) 1 2-28 tablet by ity of mg tablet 00:00: mouth 2 00 (two) Medical times Branch daily as needed for Anxiety or Agitation. hydrOXYzine 2023-0 Yes [id number] 25mg Take 1 [facility] (VISTARIL) 2-28 capsule by ity of 25 mg 00:00: mouth 3 [place] capsule 00 (three) Medical times Branch daily as needed for Anxiety. LORazepam 2023-0 Yes [id number] 1mg Take 1 [facility] (ATIVAN) 1 2-28 tablet by ity of mg tablet 00:00: mouth 2 [place] 00 (two) Medical times Branch daily as needed for Anxiety or Agitation. hydrOXYzine 2023-0 Yes [id number] 25mg Take 1 [facility] (VISTARIL) 2-28 capsule by ity of 25 mg 00:00: mouth 3 [place] capsule 00 (three) Medical times Branch daily as needed for Anxiety. LORazepam 2023-0 Yes [id number] 1mg Take 1 [facility] (ATIVAN) 1 2-28 tablet by ity of mg tablet 00:00: mouth 2 [place] 00 (two) Medical times Branch daily as needed for Anxiety or Agitation. hydrOXYzine 3-0 Yes [id number] 25mg Take 1 [facility] (VISTARIL) 2-28 capsule by ity of 25 mg 00:00: mouth 3 [place] capsule 00 (three) Medical times Branch daily as needed for Anxiety. LORazepam 2022-0 Yes [id number] 1mg Take 1 [facility] (ATIVAN) 1 2-28 tablet by ity of mg tablet 00:00: mouth 2 [place] 00 (two) Medical times Branch daily as needed for Anxiety or Agitation. hydrOXYzine 2022-0 Yes [id number] 25mg Take 1 [facility] (VISTARIL) 2-28 capsule by ity of 25 mg 00:00: mouth 3 [place] capsule 00 (three) Medical times Branch daily as needed for Anxiety. hydrOXYzine 2022-0 2023- No [id number] 25mg Take 1 [facility] (VISTARIL) 2-28 06-27 capsule by it y of 25 mg 00:00: 00:00 mouth 3 [place] capsule 00 :00 (three) Medical times Branch daily as needed for Anxiety. hydrOXYzine 2022-0 2023- No [id number] 25mg Take 1 [facility] (VISTARIL) 2-28 -27 capsule by it y of 25 mg 00:00: 00:00 mouth 3 [place] capsule 00 :00 (three) Medical times Branch daily as needed for Anxiety. iopamidol 0 3- No [id number] 75mL 75 mL, [facility] (ISOVUE 10-13 Intravenou ity o f 370-500 mL) 09:30: 21:29 s, ONCE, 1 [place] injection 00 :00 dose, On Medica l 75 mL 10/13/22 Branch at 0330, Routine dicyclomine 0 2022- No 20mg 20 mg, Uni vers (BENTYL) 10-13 Intramuscu ity of injection 09:15: 21:14 [place], ONCE, [place] 20 mg 00 :00 1 dose, On Medical 10/13/22 Branch at 0315, Routine famotidine 2022-0 Yes TAKE 1 Unive rs 20 mg 1-25 TABLET BY ity of tablet 00:00: MOUTH IN [place] 00 THE Medical MORNING Branch AND IN THE EVENING FOR 5 DAYS famotidine 0 Yes TAKE 1 [facility] 20 mg 1-25 TABLET BY ity of tablet 00:00: MOUTH IN [place] 00 THE Medical MORNING Branch AND IN THE EVENING FOR 5 DAYS famotidine Yes TAKE 1 [facility] 20 mg 1-25 TABLET BY ity of tablet 00:00: MOUTH IN [place] 00 THE Medical MORNING Branch AND IN THE EVENING FOR 5 DAYS famotidine Yes TAKE 1 [facility] 20 mg 1-25 TABLET BY ity of tablet 00:00: MOUTH IN [place] 00 THE Medical MORNING Branch AND IN THE EVENING FOR 5 DAYS famotidine Yes TAKE 1 [facility] rs 20 mg 1-25 TABLET BY ity of tablet 00:00: MOUTH IN [place] 00 THE Medical MORNING Branch AND IN THE EVENING FOR 5 DAYS famotidine Yes TAKE 1 [facility] rs 20 mg 1-25 TABLET BY ity of tablet 00:00: MOUTH IN [place] 00 THE Medical MORNING Branch AND IN THE EVENING FOR 5 DAYS famotidine Yes TAKE 1 [facility] 20 mg 1-25 TABLET BY ity of tablet 00:00: MOUTH IN [place] 00 THE Medical MORNING Branch AND IN THE EVENING FOR 5 DAYS famotidine Yes TAKE 1 [facility] rs 20 mg 1-25 TABLET BY ity of tablet 00:00: MOUTH IN [place] 00 THE Medical MORNING Branch AND IN THE EVENING FOR 5 DAYS famotidine Yes TAKE 1 [facility] 20 mg 1-25 TABLET BY ity of tablet 00:00: MOUTH IN [place] 00 THE Medical MORNING Branch AND IN THE EVENING FOR 5 DAYS famotidine 0 Yes TAKE 1 [facility]ive rs 20 mg 1-25 TABLET BY ity of tablet 00:00: MOUTH IN [place] 00 THE Medical MORNING Branch AND IN THE EVENING FOR 5 DAYS famotidine 0 Yes TAKE 1 Unive rs 20 mg 1-25 TABLET BY ity of tablet 00:00: MOUTH IN [place] [address] THE Medical MORNING Branch AND IN THE EVENING FOR 5 DAYS famotidine Yes TAKE 1 Unive rs 20 mg 1-25 TABLET BY ity of tablet 00:00: MOUTH IN [place] 00 THE Medical MORNING Branch AND IN THE EVENING FOR 5 DAYS famotidine 0 2023- No TAKE 1 [facility] ers 20 mg 1- 05-12 TABLET BY ity of tablet 00:00: [...] at 1830, 1 mL predniSONE 2022- No [id number] 40mg Take 2 [facility] 20 mg 09-10 tablets by ity of tablet 00:00: 05:59 mouth in [place] 00 :00 the Medical morning Branch for 5 days. famotidine 2022- No [id number] 20mg Take 1 [facility] (PEPCID) 20 09-09-10 tablet by it y of mg tablet 00:00: 05:59 mouth in [facility] as 00 :00 the morning Branch and 1 tablet in the evening. Do all this for 5 days. HYDROcodone 2021-09- No 1{tbl} 1 tablet, [facility] -acetaminop 2-14 12-13 Oral, ity of hen (NORCO) 00:00: 22:59 ONCE, 1 [place] 10-325 mg 00 :00 dose, On Medica l tablet 1 e Branch tablet 08/18/22 at 1800, Routine oseltamivir 2021-09- No [id number] 75mg Take 1 [facility] (TAMIFLU) 2-13 12-19 capsule by ity of 75 mg 00:00: 05:59 mouth in [place] capsule 00 :00 the Medical morning Branch and 1 capsule in the evening. Do all this for 5 days. oxyCODONE 5 0 Yes 5mg Take 1 Univ ers mg 9-28 tablet by ity of immediate 00:00: mouth. [place] release 00 Medical tablet Branch oxyCODONE 5 2022-0 Yes 5mg Take 1 [...] 00 Medical tablet Branch oxyCODONE 5 2021-0 2023- No 5mg Take 1 [facility] vers mg 9-28 10-05 tablet by ity of immediate 00:00: 00:00 mouth. [place] release 00 :00 Medical tablet Branch oxyCODONE 5 2021-0 2023- No 5mg Take 1 [facility] vers mg 9-28 10-05 tablet by ity of immediate 00:00: 00:00 mouth. [place] release 00 :00 Medical tablet Branch naproxen 2-0 Yes naproxen Unive rs 500 mg 9-16 500 mg ity of tablet 00:00: tablet Medical Branch naproxen 2-0 Yes naproxen Unive rs 500 mg 9-16 500 mg ity of tablet 00:00: tablet Medical Branch naproxen 2-0 Yes naproxen Unive rs 500 mg 9-16 500 mg ity of tablet 00:00: tablet [place] [facility] naproxen 2-0 Yes naproxen Unive rs 500 mg 9-16 500 mg ity of tablet 00:00: tablet [place] [facility] naproxen 2-0 Yes naproxen Unive rs 500 mg 9-16 500 mg ity of tablet 00:00: tablet Medical Branch naproxen 2-0 Yes naproxen Unive rs 500 mg 9-16 500 mg ity of tablet 00:00: tablet Medical Branch naproxen 2-0 Yes naproxen Unive rs 500 mg 9-16 500 mg ity of tablet 00:00: tablet [place] [facility] naproxen 2-0 Yes naproxen Unive rs 500 mg 9-16 500 mg ity of tablet 00:00: tablet Medical Branch naproxen 2-0 Yes naproxen Unive rs 500 mg 9-16 500 mg ity of tablet 00:00: tablet [place] [facility] naproxen 2-0 Yes naproxen Unive rs 500 mg 9-16 500 mg ity of tablet 00:00: tablet [place] [facility] naproxen 2-0 Yes naproxen Unive rs 500 mg 9-16 500 mg ity of tablet 00:00: tablet [place] [facility] naproxen 2-0 Yes naproxen Unive rs 500 mg 9-16 500 mg ity of tablet 00:00: tablet [place] [facility] naproxen 2-0 3- No naproxen Univ ers 500 mg 9-16 05-12 500 mg ity of tablet 00:00: 00:00 tablet [place] 00 :00 Medical Branch prazosin 2 2021-0 Yes 2mg Take 1 Unive rs mg capsule 9-15 capsule by ity of 00:00: mouth. [place] [address] Medical Branch prazosin 2 2021-0 Yes 2mg [...] by it y of 00:00: 00:00 mouth. [place] 00 :00 Medical Branch naloxone 4 2021-0 [...] OPIOID EMERGENCY PERSIST, ALTERNATE NOSTRILS lidocaine 5 2021- Yes lidocaine U nivers % (700 8-25 [...] patch 00 patch Medical Branch naloxone 4 2022-0 Yes CALL 911. Un travis mg/actuatio 8-25 [...] 2022- No CALL 911. U nivers mg/actuatio 825 05-12 SPR ity of n nasal 00:00: [...] 12.5 mg Tab 00:00: Medical Branch naloxegoL 2022-0 Yes [facility] (MOVANTIK) [...] Methodi -acetaminop 5-17 05-[address] [employer]) 13:50: 00:00 mouth [facility] 10-325 mg 15 :00 every 6 l per tablet (six) hours as needed .acute pain. prn HYDROcodone 2021- No 1{tbl} Q6H Take 1 Methodi -acetaminop 5-17 05-[address] [employer]) 13:50: 00:00 mouth [facility] 10-325 mg 15 :00 every 6 l per tablet (six) hours as needed .acute pain. prn HYDROcodone 2021-2021- No 1{tbl} Q6H Take 1 Methodi -acetaminop 5-17 05-17 tablet by [employer]) 13:50: 00:00 mouth [facility] 10-325 mg 15 :00 every 6 l per tablet (six) hours as needed .acute pain. prn HYDROcodone 2021- No [id number] 1{tbl} Q6H Take 1 Methodi -acetaminop 5-17 05-[address] [facility] ([employer]) 13:50: 00:00 mouth [facility] 10-325 mg 15 :00 every 6 l per tablet (six) hours as needed .acute pain. prn HYDROcodone 2021- No [id number] 1{tbl} Q6H Take 1 Methodi -acetaminop 5-17 05-[address] [facility] ([employer]) 13:50: 00:00 mouth [facility] 10-325 mg 15 :00 every 6 l per tablet (six) hours as needed .acute pain. prn tiZANidine 0 2021- No 4mg Q8H Take 4 mg M ethodi (ZANAFLEX) 5-17 05-[address] 4 MG tablet 13:37: 00:00 every 8 [facility] 02 :00 (eight) l hours as needed for muscle spasms. tiZANidine 2021-0 2021- No 4mg Q8H Take 4 mg M ethodi (ZANAFLEX) 5-17 05-[address] 4 MG tablet 13:37: 00:00 every 8 [facility] 02 :00 (eight) l hours as needed for muscle spasms. tiZANidine 0 2022- No 4mg Q8H Take 4 mg M ethodi (ZANAFLEX) 5-17 05-[address] 4 MG tablet 13:37: 00:00 every 8 [facility] spita 02 :00 (eight) l hours as needed for muscle spasms. tiZANidine 0 2021- No 4mg Q8H Take 4 mg M ethodi (ZANAFLEX) 5-17 05-[address] 4 MG tablet 13:37: 00:00 every 8 [facility] 02 :00 (eight) l hours as needed for muscle spasms. tiZANidine 2021-0 2- No 4mg Q8H Take 4 mg M [...] hours as needed. cyclobenzap 2022-0 Yes 10mg Q.[id number] Take 10 mg Methodi rine 5-17 [id number] [facility] [address] (FLEXERIL) 13:09: 3D [...] hours as needed. cyclobenzap 2022-0 Yes 10mg Q.[id number] Take 10 mg Methodi rine 5-17 [id number] [facility] [address] (FLEXERIL) 13:09: 3D [...] hours as needed. cyclobenzap 2022-0 Yes 10mg Q.[id number] Take 10 mg Methodi rine 5-17 [id number] [facility] [address] (FLEXERIL) 13:09: 3D [...] hours as needed. cyclobenzap 2022-0 Yes 10mg Q.[id number] Take 10 mg Methodi rine 5-17 [id number] [facility] [address] (FLEXERIL) 13:09: 3D [...] hours as needed. cyclobenzap 2022-0 Yes 10mg Q.[id number] Take 10 mg Methodi rine 5-[id number] [facility] [address] (FLEXERIL) 13:09: 3D [...] hours as needed. cyclobenzap 2022-0 Yes 10mg Q.[id number] Take 10 mg Methodi rine 5-17 [id number] [facility] [address] (FLEXERIL) 13:09: 3D (three) [facility] 10 mg 39 times a l tablet day as needed for muscle spasms. cyclobenzap 2022-0 Yes 10mg Q.[id number] Take 10 mg Methodi rine 5-[id number] [facility] [address] (FLEXERIL) 13:09: 3D [...] hours as needed. cyclobenzap 2022-0 Yes 10mg Q.[id number] Take 10 mg Methodi rine 5-17 [id number] [facility] [address] (FLEXERIL) 13:09: 3D [...] hours as needed. cyclobenzap 2022-0 Yes 10mg Q.[id number] Take 10 mg Methodi rine 5-17 [id number] [facility] [address] (FLEXERIL) 13:09: 3D [...] hours as needed. cyclobenzap 2022-0 Yes 10mg Q.[id number] Take 10 mg Methodi rine 5-17 [id number] [facility] [address] (FLEXERIL) 13:09: 3D [...] hours as needed. cyclobenzap 2022-0 Yes 10mg Q.[id number] Take 10 mg Methodi rine 5-[id number] [facility] [address] (FLEXERIL) 13:09: 3D [...] hours as needed. cyclobenzap 2022-0 Yes 10mg Q.[id number] Take 10 mg Methodi rine 5-[id number] [facility] [address] (FLEXERIL) 13:09: 3D [...] hours as needed. cyclobenzap 2022-0 Yes 10mg Q.[id number] Take 10 mg Methodi rine 5-17 [id number] [facility] [address] (FLEXERIL) 13:09: 3D [...] hours as needed. cyclobenzap 2022-0 Yes 10mg Q.[id number] Take 10 mg Methodi rine 5-[id number] [facility] [address] (FLEXERIL) 13:09: 3D (three) [facility] 10 mg 39 times a l tablet day as needed for muscle spasms. diazePAM 2021-0 Yes 10mg Q12H Take 10 mg [facility] (VALIUM) 10 5-[address] MG tablet 13:09: every 12 [facility] 39 (twelve) l hours as needed for anxiety. meloxicam 0 Yes 7.5mg Q12H Take 7.5 [facility] (MOBIC) 7.5 5-[address] mg tablet 13:09: mouth [facility] 39 every 12 l (twelve) hours as needed. cyclobenzap 0 Yes 10mg Q.[id number] Take 10 mg Methodi rine 5-17 [id number] [facility] [address] (FLEXERIL) 13:09: 3D (three) [facility] 10 mg 39 times a l tablet day as needed for muscle spasms. HYDROcodone 2021- No [id number] 1{tbl} Q6H Take 1 Methodi -acetaminop 5-17 06-[address] [facility] ([employer]) 00:00: 04:59 mouth [facility] 10-325 mg 00 :00 every 6 l per tablet (six) hours as needed for severe pain for up to 30 days .chronic pain. prn Max Daily Amount: 4 tablets HYDROcodone 2021-0 2021- No [id number] 1{tbl} Q6H Take 1 Methodi -acetaminop 5-17 06-[address] [employer]) 00:00: 04:59 mouth [facility] 10-325 mg 00 :00 every 6 l per tablet (six) hours as needed for severe pain for up to 30 days .chronic pain. prn Max Daily Amount: 4 tablets HYDROcodone 2021-0 2021- No [id number] 1{tbl} Q6H Take 1 Methodi -acetaminop 5-17 06-[address] [facility] ([employer]) 00:00: 04:59 mouth [facility] 10-325 mg 00 :00 every 6 l per tablet (six) hours as needed for severe pain for up to 30 days .chronic pain. prn Max Daily Amount: 4 tablets HYDROcodone 2021-0 2021- No [id number] 1{tbl} Q6H Take 1 Methodi -acetaminop 5-17 06-[address] [facility] ([facility]) 00:00: 04:59 mouth [facility] 10-325 mg 00 :00 every 6 l per tablet (six) hours as needed for severe pain for up to 30 days .chronic pain. prn Max Daily Amount: 4 tablets HYDROcodone 2022-0 2022- [place] [id number] 1{tbl} Q6H Take 1 Methodi -acetaminop 5-17 06-[address] [facility] ([employer]) 00:00: 04:59 mouth [facility] 10-325 mg 00 :00 every 6 l per tablet (six) hours as needed for severe pain for up to 30 days .chronic pain. prn Max Daily Amount: 4 tablets HYDROcodone 2022-0 2022- No [id number] 1{tbl} Q6H Take 1 Methodi -acetaminop 5-17 06-[address] [facility] ([employer]) 00:00: 04:59 mouth [facility] 10-325 mg 00 :00 every 6 l per tablet (six) hours as needed for severe pain for up to 30 days .chronic pain. prn Max Daily Amount: 4 tablets HYDROcodone 2022-0 2022- No [id number] 1{tbl} Q6H Take 1 Methodi -acetaminop 5-17 06-[address] [facility] ([facility]) 00:00: 04:59 mouth [facility] 10-325 mg 00 :00 every 6 l per tablet (six) hours as needed for severe pain for up to 30 days .chronic pain. prn Max Daily Amount: 4 tablets diazePAM 2-0 2022- No 10mg Q6H Take 10 mg [facility] (VALIUM) 10 10-[address] MG tablet 16:12: 00:00 every 6 [facility] 01 :00 (six) l hours as needed. diazePAM 2021-0 2- No 10mg Q6H Take 10 mg [facility] (VALIUM) 10 10-[address] MG tablet 16:12: 00:00 every 6 [facility] 01 :00 (six) l hours as needed. diazePAM 2-0 2- No 10mg Q6H Take [...] up to 60 days. diazePAM 2020-09- No [id number] 10mg Q12H Take 1 [facility] (VALIUM) 10 10-15 tablet (10 s t MG tablet 00:00: 05:59 mg total) [facility] sp[facility] 00 :00 by mouth l every 12 (twelve) hours as needed for anxiety for up to 30 days. diazePAM 2020-09- No [id number] 10mg Q12H Take 1 [facility] (VALIUM) 10 10-15 tablet (10 s t MG tablet 00:00: 05:59 mg total) [facility] sp[facility] 00 :00 by mouth l every 12 (twelve) hours as needed for anxiety for up to 30 days. diazePAM 2020-09- No [id number] 10mg Q12H Take 1 [facility] (VALIUM) 10 10-15- tablet (10 s t MG tablet 00:00: 05:59 mg total) [facility] 00 :00 by mouth l every 12 (twelve) hours as needed for anxiety for up to 30 days. diazePAM 2020-09- No [id number] 10mg Q12H Take 1 [facility] (VALIUM) [...] Take 10 mg [facility] (VALIUM) 10 1-04 11-[address] MG tablet 08:53: 00:00 every 8 [facility] 41 :00 (eight) l hours as needed for anxiety. diazePAM 2020-09- No [id number] 10mg Q12H Take 1 [facility] (VALIUM) 10 09-09 12-05 tablet (10 s t MG tablet 00:00: 05:59 mg total) [facility] 00 :00 by mouth l every 12 (twelve) hours as needed for anxiety for up to 30 days. diazePAM 2020-09- No [id number] 10mg Q12H Take 1 [facility] (VALIUM) 10 09-09 12-05 tablet (10 s t MG tablet 00:00: 05:59 mg total) [facility] 00 :00 by mouth l every 12 (twelve) hours as needed for anxiety for up to 30 days. diazePAM 2020-09- No [id number] 10mg Q12H Take 1 [facility] (VALIUM) 10 09-09 12-05 tablet (10 s t MG tablet 00:00: 05:59 mg total) [facility] 00 :00 by mouth l every 12 (twelve) hours as needed for anxiety for up to 30 days. diazePAM 2020-09- No [id number] 10mg Q12H Take 1 [facility] (VALIUM) 10 09-09 12-05 tablet (10 s t MG tablet 00:00: 05:59 mg total) [facility] 00 :00 by mouth l every 12 (twelve) hours as needed for anxiety for up to 30 days. azithromyci 2020-09- No [id number] 250mg QD Take 1 Methodi n 008 11-[address] (Zithromax 00:00: 00:00 (250 mg Hos teddy Z-Ok) 250 00 :00 total) by l MG tablet mouth daily. Take 2 tablets the first day, then 1 tablet daily for 4 days. pantoprazol Yes [id number] 40mg Take 1 [facility] e 4-18 tablet by ity of (PROTONIX) 00:00: mouth [place] 40 mg EC 00 daily. Medical tablet Branch dicyclomine Yes [id number] 20mg Take 1 [facility] 20 mg 4-18 tablet by ity of tablet 00:00: mouth [place] 00 every 6 Medical (six) Branch hours as needed for Abdominal pain. ondansetron 2020-0 Yes [id number] 4mg Take 1 [facility] (ZOFRAN) 4 4-18 tablet by ity of mg tablet 00:00: mouth [place] 00 every 8 Medical (eight) Branch hours as needed for Nausea and Vomiting (N/V). pantoprazol 2020-0 Yes [id number] 40mg Take 1 [facility] e 4-18 tablet by ity of (PROTONIX) 00:00: mouth [place] 40 mg EC 00 daily. Medical tablet Branch dicyclomine 2020-0 Yes [id number] 20mg Take 1 [facility] 20 mg 4-18 tablet by ity of tablet 00:00: mouth [place] 00 every 6 Medical (six) Branch hours as needed for Abdominal pain. ondansetron 2020-0 Yes [id number] 4mg Take 1 [facility] (ZOFRAN) 4 4-18 tablet by ity of mg tablet 00:00: mouth [place] 00 every 8 Medical (eight) Branch hours as needed for Nausea and Vomiting (N/V). pantoprazol 2020-0 Yes [id number] 40mg Take 1 [facility] e 4-18 tablet by ity of (PROTONIX) 00:00: mouth [place] 40 mg EC 00 daily. Medical tablet Branch dicyclomine 2020-0 Yes [id number] 20mg Take 1 [facility] 20 mg 4-18 tablet by ity of tablet 00:00: mouth [place] 00 every 6 Medical (six) Branch hours as needed for Abdominal pain. ondansetron 2020-0 Yes [id number] 4mg Take 1 [facility] (ZOFRAN) 4 4-18 tablet by ity of mg tablet 00:00: mouth [place] 00 every 8 Medical (eight) Branch hours as needed for Nausea and Vomiting (N/V). pantoprazol 2020-0 Yes [id number] 40mg Take 1 [facility] e 4-18 tablet by ity of (PROTONIX) 00:00: mouth [place] 40 mg EC 00 daily. Medical tablet Branch dicyclomine 2020-0 Yes [id number] 20mg Take 1 [facility] 20 mg 4-18 tablet by ity of tablet 00:00: mouth [place] 00 every 6 Medical (six) Branch hours as needed for Abdominal pain. ondansetron 2020-0 Yes [id number] 4mg Take 1 [facility] (ZOFRAN) 4 4-18 tablet by ity of mg tablet 00:00: mouth [place] 00 every 8 Medical (eight) Branch hours as needed for Nausea and Vomiting (N/V). pantoprazol 2020-0 Yes [id number] 40mg Take 1 [facility] e 4-18 tablet by ity of (PROTONIX) 00:00: mouth [place] 40 mg EC 00 daily. Medical tablet Branch dicyclomine 2020-0 Yes [id number] 20mg Take 1 [facility] 20 mg 4-18 tablet by ity of tablet 00:00: mouth [place] 00 every 6 Medical (six) Branch hours as needed for Abdominal pain. ondansetron 2020-0 Yes [id number] 4mg Take 1 [facility] (ZOFRAN) 4 4-18 tablet by ity of mg tablet 00:00: mouth [place] 00 every 8 Medical (eight) Branch hours as needed for Nausea and Vomiting (N/V). pantoprazol 2020-0 Yes [id number] 40mg Take 1 [facility] e 4-18 tablet by ity of (PROTONIX) 00:00: mouth [place] 40 mg EC 00 daily. Medical tablet Branch dicyclomine 2020-0 Yes [id number] 20mg Take 1 [facility] 20 mg 4-18 tablet by ity of tablet 00:00: mouth [place] 00 every 6 Medical (six) Branch hours as needed for Abdominal pain. ondansetron 2020-0 Yes [id number] 4mg Take 1 [facility] (ZOFRAN) 4 4-18 tablet by ity of mg tablet 00:00: mouth [place] 00 every 8 Medical (eight) Branch hours as needed for Nausea and Vomiting (N/V). pantoprazol 2020-0 Yes [id number] 40mg Take 1 [facility] e 4-18 tablet by ity of (PROTONIX) 00:00: mouth [place] 40 mg EC 00 daily. Medical tablet Branch dicyclomine 2020-0 Yes [id number] 20mg Take 1 [facility] 20 mg 4-18 tablet by ity of tablet 00:00: mouth [place] 00 every 6 Medical (six) Branch hours as needed for Abdominal pain. ondansetron 2020-0 Yes [id number] 4mg Take 1 [facility] (ZOFRAN) 4 4-18 tablet by ity of mg tablet 00:00: mouth [place] 00 every 8 Medical (eight) Branch hours as needed for Nausea and Vomiting (N/V). pantoprazol 2020-0 Yes [id number] 40mg Take 1 [facility] e 4-18 tablet by ity of (PROTONIX) 00:00: mouth [place] 40 mg EC 00 daily. Medical tablet Branch dicyclomine 2020-0 Yes [id number] 20mg Take 1 [facility] 20 mg 4-18 tablet by ity of tablet 00:00: mouth [place] 00 every 6 Medical (six) Branch hours as needed for Abdominal pain. ondansetron 2020-0 Yes [id number] 4mg Take 1 [facility] (ZOFRAN) 4 4-18 tablet by ity of mg tablet 00:00: mouth [place] 00 every 8 Medical (eight) Branch hours as needed for Nausea and Vomiting (N/V). pantoprazol 2020-0 Yes [id number] 40mg Take 1 [facility] e 4-18 tablet by ity of (PROTONIX) 00:00: mouth [place] 40 mg EC 00 daily. Medical tablet Branch dicyclomine 2020-0 Yes [id number] 20mg Take 1 [facility] 20 mg 4-18 tablet by ity of tablet 00:00: mouth [place] 00 every 6 Medical (six) Branch hours as needed for Abdominal pain. ondansetron 2020-0 Yes [id number] 4mg Take 1 [facility] (ZOFRAN) 4 4-18 tablet by ity of mg tablet 00:00: mouth [place] 00 every 8 Medical (eight) Branch hours as needed for Nausea and Vomiting (N/V). pantoprazol 2020-0 Yes [id number] 40mg Take 1 [facility] e 4-18 tablet by ity of (PROTONIX) 00:00: mouth [place] 40 mg EC 00 daily. Medical tablet Branch dicyclomine 2020-0 Yes [id number] 20mg Take 1 [facility] 20 mg 4-18 tablet by ity of tablet 00:00: mouth [place] 00 every 6 Medical (six) Branch hours as needed for Abdominal pain. ondansetron 2020-0 Yes [id number] 4mg Take 1 [facility] (ZOFRAN) 4 4-18 tablet by ity of mg tablet 00:00: mouth [place] 00 every 8 Medical (eight) Branch hours as needed for Nausea and Vomiting (N/V). pantoprazol 2020-0 Yes [id number] 40mg Take 1 [facility] e 4-18 tablet by ity of (PROTONIX) 00:00: mouth [place] 40 mg EC 00 daily. Medical tablet Branch dicyclomine 2020-0 Yes [id number] 20mg Take 1 [facility] 20 mg 4-18 tablet by ity of tablet 00:00: mouth [place] 00 every 6 Medical (six) Branch hours as needed for Abdominal pain. ondansetron 2020-0 Yes [id number] 4mg Take 1 [facility] (ZOFRAN) 4 4-18 tablet by ity of mg tablet 00:00: mouth [place] 00 every 8 Medical (eight) Branch hours as needed for Nausea and Vomiting (N/V). pantoprazol 2020-0 Yes [id number] 40mg Take 1 [facility] e 4-18 tablet by ity of (PROTONIX) 00:00: mouth [place] 40 mg EC 00 daily. Medical tablet Branch dicyclomine 2020-0 Yes [id number] 20mg Take 1 [facility] 20 mg 4-18 tablet by ity of tablet 00:00: mouth [place] 00 every 6 Medical (six) Branch hours as needed for Abdominal pain. ondansetron 2020-0 Yes [id number] 4mg Take 1 [facility] (ZOFRAN) 4 4-18 tablet by ity of mg tablet 00:00: mouth [place] 00 every 8 Medical (eight) Branch hours as needed for Nausea and Vomiting (N/V). pantoprazol 2020-0 Yes [id number] 40mg Take 1 [facility] e 4-18 tablet by ity of (PROTONIX) 00:00: mouth [place] 40 mg EC 00 daily. Medical tablet Branch dicyclomine 2020-0 Yes [id number] 20mg Take 1 [facility] 20 mg 4-18 tablet by ity of tablet 00:00: mouth [place] 00 every 6 Medical (six) Branch hours as needed for Abdominal pain. ondansetron 2020-0 Yes [id number] 4mg Take 1 [facility] (ZOFRAN) 4 4-18 tablet by ity of mg tablet 00:00: mouth [place] 00 every 8 Medical (eight) Branch hours as needed for Nausea and Vomiting (N/V). pantoprazol 2020-0 Yes [id number] 40mg Take 1 [facility] e 4-18 tablet by ity of (PROTONIX) 00:00: mouth [place] 40 mg EC 00 daily. Medical tablet Branch dicyclomine 2020-0 Yes [id number] 20mg Take 1 [facility] tablet by [facility] tablet 00:00: mouth [place] 00 every 6 [facility] (six) Branch hours as needed for Abdominal pain. ondansetron 2020-0 Yes [id number] 4mg Take 1 [facility] ([facility]) 4 4-18 tablet by [facility] mg tablet 00:00: mouth [place] 00 every 8 [facility] (eight) Branch hours as needed for Nausea and Vomiting (N/V). pantoprazol 2020-0 Yes [id number] 40mg Take 1 [facility] 4-18 tablet by [facility] (PROTONIX) 00:00: mouth [place] 40 mg EC 00 daily. [facility] tablet Branch dicyclomine 2020-0 Yes [id number] 20mg Take 1 [facility] 20 [facility]-18 tablet by [facility] tablet 00:00: mouth [place] 00 every 6 [facility] (six) Branch hours as needed for Abdominal pain. ondansetron 2020-0 Yes [id number] 4mg Take 1 [facility] ([facility]) 4 4-18 tablet by [facility] mg tablet 00:00: mouth [place] 00 every 8 [facility] (eight) Branch hours as needed for Nausea and Vomiting (N/V). pantoprazol 2020-0 Yes [id number] 40mg Take 1 [facility] 4[facility]18 tablet by [facility] (PROTONIX) 00:00: mouth [place] 40 mg EC 00 daily. [facility] tablet [facility] dicyclomine 2020-0 Yes [id number] 20mg Take 1 [facility] 20 [facility] 4-18 tablet by [facility] tablet 00:00: mouth [place] 00 every 6 [facility] (six) Branch hours as needed for Abdominal pain. ondansetron 2020-0 Yes [id number] 4mg Take 1 [facility] ([facility]) 4 4-18 tablet by [facility] mg tablet 00:00: mouth [place] 00 every 8 [facility] (eight) Branch hours as needed for Nausea and Vomiting (N/V). pantoprazol 2020-0 Yes [id number] 40mg Take 1 [facility] 4-18 tablet by [facility] (PROTONIX) 00:00: mouth [place] 40 mg EC 00 daily. [facility] tablet [facility] dicyclomine 2020-0 Yes [id number] 20mg Take 1 [facility] 20 mg 4-18 tablet by [facility] tablet 00:00: mouth [place] 00 every 6 [facility] (six) Branch hours as needed for Abdominal pain. ondansetron 2020-0 Yes [id number] 4mg Take 1 [facility] ([facility]) 4 4-18 tablet by [facility] mg tablet 00:00: mouth [place] 00 every 8 [facility] (eight) Branch hours as needed for Nausea and Vomiting (N/V). pantoprazol 2020-0 Yes [id number] 40mg Take 1 [facility] e 4-18 tablet by [facility] (PROTONIX) 00:00: mouth [place] 40 mg EC 00 daily. [facility] tablet [facility] dicyclomine 2020-0 Yes [id number] 20mg Take 1 [facility] 20 mg 4-18 tablet by [facility] tablet 00:00: mouth [place] 00 every 6 [facility] (six) Branch hours as needed for Abdominal pain. ondansetron 0 Yes [id number] 4mg Take 1 [facility] ([facility]) 4 4-18 tablet by [facility] mg tablet 00:00: mouth [place] 00 every 8 [facility] (eight) Branch hours as needed for Nausea and Vomiting (N/V). pantoprazol 0 Yes [id number] 40mg Take 1 [facility] 4-18 tablet by [facility] (PROTONIX) 00:00: mouth [place] 40 mg EC 00 daily. [facility] tablet [facility] dicyclomine 0 Yes [id number] 20mg Take 1 [facility] 20 mg 4-18 tablet by [facility] tablet 00:00: mouth [place] 00 every 6 [facility] (six) Branch hours as needed for Abdominal pain. ondansetron 0 Yes [id number] 4mg Take 1 [facility] ([facility]) 4 4-18 tablet by [facility] mg tablet 00:00: mouth [place] 00 every 8 [facility] (eight) Branch hours as needed for Nausea and Vomiting (N/V). pantoprazol 0 Yes [id number] 40mg Take 1 [facility] e 4-18 tablet by [facility] (PROTONIX) 00:00: mouth [place] 40 mg EC 00 daily. [facility] tablet [facility] dicyclomine 2020-0 Yes [id number] 20mg Take 1 [facility] 20 mg 4-18 tablet by [facility] tablet 00:00: mouth [place] 00 every 6 [facility] (six) Branch hours as needed for Abdominal pain. ondansetron 2020-0 Yes [id number] 4mg Take 1 [facility] ([facility]) 4 4-18 tablet by [facility] mg tablet 00:00: mouth [place] 00 every 8 [facility] (eight) Branch hours as needed for Nausea and Vomiting (N/V). pantoprazol 2020-0 Yes [id number] 40mg Take 1 [facility] 4-18 tablet by [facility] (PROTONIX) 00:00: mouth [place] 40 mg EC 00 daily. [facility] tablet [facility] dicyclomine 2020-0 Yes [id number] 20mg Take 1 [facility] 20 mg 4-18 tablet by [facility] tablet 00:00: mouth [place] 00 every 6 [facility] (six) Branch hours as needed for Abdominal pain. ondansetron 2020-0 Yes [id number] 4mg Take 1 [facility] ([facility]) 4 4-18 tablet by [facility] mg tablet 00:00: mouth [place] 00 every 8 [facility] (eight) Branch hours as needed for Nausea and Vomiting (N/V). pantoprazol 2020-0 Yes [id number] 40mg Take 1 [facility] e 4-18 tablet by [facility] (PROTONIX) 00:00: mouth [place] 40 mg EC 00 daily. [facility] tablet [facility] dicyclomine 2020-0 Yes [id number] 20mg Take 1 [facility] 20 mg 4-18 tablet by [facility] tablet 00:00: mouth [place] 00 every 6 [facility] (six) Branch hours as needed for Abdominal pain. ondansetron 2020-0 Yes [id number] 4mg Take 1 [facility] ([facility]) 4 4-18 tablet by [facility] mg tablet 00:00: mouth [place] 00 every 8 [facility] (eight) Branch hours as needed for Nausea and Vomiting (N/V). pantoprazol 2020-0 Yes [id number] 40mg Take 1 [facility] e 4-18 tablet by [facility] (PROTONIX) 00:00: mouth [place] 40 mg EC 00 daily. [facility] tablet [facility] dicyclomine 2020-0 Yes [id number] 20mg Take 1 [facility] 20 mg 4-18 tablet by [facility] tablet 00:00: mouth [place] 00 every 6 [facility] (six) Branch hours as needed for Abdominal pain. ondansetron 2020-0 Yes [id number] 4mg Take 1 [facility] ([facility]) 4 4-18 tablet by [facility] mg tablet 00:00: mouth [place] 00 every 8 [facility] (eight) Branch hours as needed for Nausea and Vomiting (N/V). pantoprazol 2020-0 Yes [id number] 40mg Take 1 [facility] e 4-18 tablet by [facility] (PROTONIX) 00:00: mouth [place] 40 mg EC 00 daily. [facility] tablet [facility] dicyclomine 2020-0 Yes [id number] 20mg Take 1 [facility] 20 mg 4-18 tablet by [facility] tablet 00:00: mouth [place] 00 every 6 [facility] (six) Branch hours as needed for Abdominal pain. ondansetron 2020-0 Yes [id number] 4mg Take 1 [facility] ([facility]) 4 4-18 tablet by [facility] mg tablet 00:00: mouth [place] 00 every 8 [facility] (eight) Branch hours as needed for Nausea and Vomiting (N/V). pantoprazol 2020-0 Yes [id number] 40mg Take 1 [facility] e 4-18 tablet by [facility] (PROTONIX) 00:00: mouth [place] 40 mg EC 00 daily. [facility] tablet [facility] dicyclomine 2020-0 Yes [id number] 20mg Take 1 [facility] 20 mg 4-18 tablet by [facility] tablet 00:00: mouth [place] 00 every 6 [facility] (six) Branch hours as needed for Abdominal pain. pantoprazol 2020-0 Yes [id number] 40mg Take 1 [facility] e 4-18 tablet by [facility] (PROTONIX) 00:00: mouth [place] 40 mg EC 00 daily. [facility] tablet [facility] dicyclomine 2020-0 Yes [id number] 20mg Take 1 [facility] 20 mg 4-18 tablet by [facility] tablet 00:00: mouth [place] 00 every 6 [facility] (six) Branch hours as needed for Abdominal pain. pantoprazol 2020-0 Yes [id number] 40mg Take 1 [facility] e 4-18 tablet by [facility] (PROTONIX) 00:00: mouth [place] 40 mg EC 00 daily. [facility] tablet [facility] dicyclomine 2020-0 Yes [id number] 20mg Take 1 [facility] 20 mg 4-18 tablet by [facility] tablet 00:00: mouth [place] 00 every 6 [facility] (six) Branch hours as needed for Abdominal pain. pantoprazol 2020-0 Yes [id number] 40mg Take 1 [facility] e 4-18 tablet by [facility] (PROTONIX) 00:00: mouth [place] 40 mg EC 00 daily. [facility] tablet [facility] dicyclomine 2020-0 Yes [id number] 20mg Take 1 [facility] 20 mg 4-18 tablet by [facility] tablet 00:00: mouth [place] 00 every 6 [facility] (six) Branch hours as needed for Abdominal pain. pantoprazol 2020-0 Yes [id number] 40mg Take 1 [facility] e 4-18 tablet by [facility] (PROTONIX) 00:00: mouth [place] 40 mg EC 00 daily. [facility] tablet [facility] dicyclomine 2020-0 Yes [id number] 20mg Take 1 [facility] 20 mg 4-18 tablet by [facility] tablet 00:00: mouth [place] 00 every 6 [facility] (six) Branch hours as needed for Abdominal pain. pantoprazol 2020-0 Yes [id number] 40mg Take 1 [facility] 4-18 tablet by [facility] (PROTONIX) 00:00: mouth [place] 40 mg EC 00 daily. [facility] tablet [facility] dicyclomine 2020-0 Yes [id number] 20mg Take 1 [facility] 20 mg 4-18 tablet by [facility] tablet 00:00: mouth [place] 00 every 6 [facility] (six) Branch hours as needed for Abdominal pain. pantoprazol 2020-0 Yes [id number] 40mg Take 1 [facility] 4-18 tablet by [facility] (PROTONIX) 00:00: mouth [place] 40 mg EC 00 daily. [facility] tablet [facility] dicyclomine 2020-0 Yes [id number] 20mg Take 1 [facility] 20 mg 4-18 tablet by [facility] tablet 00:00: mouth [place] 00 every 6 [facility] (six) Branch hours as needed for Abdominal pain. pantoprazol 2020-0 Yes [id number] 40mg Take 1 [facility] e 4-18 tablet by [facility] (PROTONIX) 00:00: mouth [place] 40 mg EC 00 daily. [facility] tablet [facility] dicyclomine 2020-0 Yes [id number] 20mg Take 1 [facility] 20 mg 4-18 tablet by [facility] tablet 00:00: mouth [place] 00 every 6 [facility] (six) Branch hours as needed for Abdominal pain. pantoprazol 2020-0 Yes [id number] 40mg Take 1 [facility] 4-18 tablet by [facility] (PROTONIX) 00:00: mouth [place] 40 mg EC 00 daily. [facility] tablet [facility] dicyclomine 2020-0 Yes [id number] 20mg Take 1 [facility] 20 mg 4-18 tablet by [facility] tablet 00:00: mouth [place] 00 every 6 [facility] (six) Branch hours as needed for Abdominal pain. pantoprazol 2020-0 Yes [id number] 40mg Take 1 [facility] e 4-18 tablet by [facility] (PROTONIX) 00:00: mouth [place] 40 mg EC 00 daily. [facility] tablet [facility] dicyclomine 2020-0 Yes [id number] 20mg Take 1 [facility] 20 mg 4-18 tablet by [facility] tablet 00:00: mouth [place] 00 every 6 [facility] (six) Branch hours as needed for Abdominal pain. pantoprazol 2020-0 Yes [id number] 40mg Take 1 [facility] e 4-18 tablet by [facility] (PROTONIX) 00:00: mouth [place] 40 mg EC 00 daily. [facility] tablet [facility] dicyclomine 2020-0 Yes [id number] 20mg Take 1 [facility] 20 mg 4-18 tablet by [facility] tablet 00:00: mouth [place] 00 every 6 [facility] (six) Branch hours as needed for Abdominal pain. pantoprazol 2020-0 Yes [id number] 40mg Take 1 [facility] e 4-18 tablet by [facility] (PROTONIX) 00:00: mouth [place] 40 mg EC 00 daily. [facility] tablet [facility] dicyclomine 2020-0 Yes [id number] 20mg Take 1 [facility] 20 mg 4-18 tablet by [facility] tablet 00:00: mouth [place] 00 every 6 [facility] (six) Branch hours as needed for Abdominal pain. pantoprazol 2020-0 Yes [id number] 40mg Take 1 [facility] e 4-18 tablet by [facility] (PROTONIX) 00:00: mouth [place] 40 mg EC 00 daily. [facility] tablet Branch dicyclomine 2020-0 Yes [id number] 20mg Take 1 [facility] 20 mg 4-18 tablet by [facility] tablet 00:00: mouth [place] 00 every 6 [facility] (six) Branch hours as needed for Abdominal pain. pantoprazol 2020-0 Yes [id number] 40mg Take 1 [facility] e 4-18 tablet by [facility] (PROTONIX) 00:00: mouth [place] 40 mg EC 00 daily. [facility] tablet Branch dicyclomine 2020-0 Yes [id number] 20mg Take 1 [facility] 20 mg 4-18 tablet by [facility] tablet 00:00: mouth [place] 00 every 6 Medical (six) Branch hours as needed for Abdominal pain. pantoprazol 2020-0 Yes [id number] 40mg Take 1 [facility] e 4-18 tablet by [facility] (PROTONIX) 00:00: mouth [place] 40 mg EC 00 daily. [facility] tablet Branch dicyclomine 2020-0 Yes [id number] 20mg Take 1 [facility] 20 mg 4-18 tablet by [facility] tablet 00:00: mouth [place] 00 every 6 [facility] (six) Branch hours as needed for Abdominal pain. pantoprazol 2020-0 Yes [id number] 40mg Take 1 [facility] e 4-18 tablet by [facility] (PROTONIX) 00:00: mouth [place] 40 mg EC 00 daily. [facility] tablet Branch dicyclomine 2020-0 Yes [id number] 20mg Take 1 [facility] 20 mg 4-18 tablet by [facility] tablet 00:00: mouth [place] 00 every 6 [facility] (six) Branch hours as needed for Abdominal pain. pantoprazol 2020-0 Yes [id number] 40mg Take 1 [facility] e 4-18 tablet by [facility] (PROTONIX) 00:00: mouth [place] 40 mg EC 00 daily. [facility] tablet Branch dicyclomine 2020-0 Yes [id number] 20mg Take 1 [facility] 20 mg 4-18 tablet by [facility] tablet 00:00: mouth [place] 00 every 6 [facility] (six) Branch hours as needed for Abdominal pain. pantoprazol 2020-0 Yes [id number] 40mg Take 1 [facility] e 4-18 tablet by [facility] (PROTONIX) 00:00: mouth [place] 40 mg EC 00 daily. [facility] tablet Branch dicyclomine 2020-0 Yes [id number] 20mg Take 1 [facility] 20 mg 4-18 tablet by [facility] tablet 00:00: mouth [place] 00 every 6 Medical (six) Branch hours as needed for Abdominal pain. pantoprazol 2020-0 Yes [id number] 40mg Take 1 [facility] e 4-18 tablet by [facility] (PROTONIX) 00:00: mouth [place] 40 mg EC 00 daily. [facility] tablet Branch dicyclomine 2020-0 Yes [id number] 20mg Take 1 [facility] 20 mg 4-18 tablet by [facility] tablet 00:00: mouth [place] 00 every 6 Medical (six) Branch hours as needed for Abdominal pain. pantoprazol 2020-0 Yes [id number] 40mg Take 1 [facility] e 4-18 tablet by [facility] (PROTONIX) 00:00: mouth [place] 40 mg EC 00 daily. [facility] tablet [facility] dicyclomine 2020-0 Yes [id number] 20mg Take 1 [facility] 20 mg 4-18 tablet by [facility] tablet 00:00: mouth [place] 00 every 6 [facility] (six) Branch hours as needed for Abdominal pain. pantoprazol 2020-0 Yes [id number] 40mg Take 1 [facility] e 4-18 tablet by [facility] (PROTONIX) 00:00: mouth [place] 40 mg EC 00 daily. [facility] tablet Branch dicyclomine 2020-0 Yes [id number] 20mg Take 1 [facility] 20 mg 4-18 tablet by [facility] tablet 00:00: mouth [place] 00 every 6 [facility] (six) Branch hours as needed for Abdominal pain. pantoprazol 2020-0 Yes [id number] 40mg Take 1 [facility] e 4-18 tablet by [facility] (PROTONIX) 00:00: mouth [place] 40 mg EC 00 daily. [facility] tablet Branch dicyclomine 2020-0 Yes [id number] 20mg Take 1 [facility] 20 mg 4-18 tablet by [facility] tablet 00:00: mouth [place] 00 every 6 [facility] (six) Branch hours as needed for Abdominal pain. pantoprazol 2020-0 Yes [id number] 40mg Take 1 [facility] e 4-18 tablet by [facility] (PROTONIX) 00:00: mouth [place] 40 mg EC 00 daily. [facility] tablet Branch dicyclomine 2020-0 Yes [id number] 20mg Take 1 [facility] 20 mg 4-18 tablet by [facility] tablet 00:00: mouth [place] 00 every 6 [facility] (six) Branch hours as needed for Abdominal pain. ondansetron 2020-0 Yes [id number] 4mg Take 1 [facility] ([facility]) 4 4-18 tablet by [facility] mg tablet 00:00: mouth [place] 00 every 8 [facility] (eight) Branch hours as needed for Nausea and Vomiting (N/V). pantoprazol 2020-0 Yes [id number] 40mg Take 1 [facility] e 4-18 tablet by [facility] (PROTONIX) 00:00: mouth [place] 40 mg EC 00 daily. [facility] tablet Branch dicyclomine 2020-0 Yes [id number] 20mg Take 1 [facility] 20 mg 4-18 tablet by [facility] tablet 00:00: mouth [place] 00 every 6 Medical (six) Branch hours as needed for Abdominal pain. ondansetron 2020-0 Yes [id number] 4mg Take 1 [facility] ([facility]) 4 4-18 tablet by [facility] mg tablet 00:00: mouth [place] 00 every 8 [facility] (eight) Branch hours as needed for Nausea and Vomiting (N/V). pantoprazol 2020-0 Yes [id number] 40mg Take 1 [facility] e 4-18 tablet by [facility] (PROTONIX) 00:00: mouth [place] 40 mg EC 00 daily. [facility] tablet Branch dicyclomine 2020-0 Yes [id number] 20mg Take 1 [facility] 20 mg 4-18 tablet by [facility] tablet 00:00: mouth [place] 00 every 6 [facility] (six) Branch hours as needed for Abdominal pain. ondansetron 2020-0 Yes [id number] 4mg Take 1 [facility] ([facility]) 4 4-18 tablet by [facility] mg tablet 00:00: mouth [place] 00 every 8 [facility] (eight) Branch hours as needed for Nausea and Vomiting (N/V). pantoprazol 2020-0 Yes [id number] 40mg Take 1 [facility] e 4-18 tablet by [facility] (PROTONIX) 00:00: mouth [place] 40 mg EC 00 daily. [facility] tablet Branch dicyclomine 2020-0 Yes [id number] 20mg Take 1 [facility] 20 mg 4-18 tablet by [facility] tablet 00:00: mouth [place] 00 every 6 [facility] (six) Branch hours as needed for Abdominal pain. ondansetron 2020-0 Yes [id number] 4mg Take 1 [facility] ([facility]) 4 4-18 tablet by [facility] mg tablet 00:00: mouth [place] 00 every 8 [facility] (eight) Branch hours as needed for Nausea and Vomiting (N/V). pantoprazol 2020-0 Yes [id number] 40mg Take 1 [facility] e 4-18 tablet by [facility] (PROTONIX) 00:00: mouth [place] 40 mg EC 00 daily. [facility] tablet Branch dicyclomine 2020-0 Yes [id number] 20mg Take 1 [facility] 20 mg 4-18 tablet by [facility] tablet 00:00: mouth [place] 00 every 6 Medical (six) Branch hours as needed for Abdominal pain. ondansetron 2020-0 Yes [id number] 4mg Take 1 [facility] ([facility]) 4 4-18 tablet by [facility] mg tablet 00:00: mouth [place] 00 every 8 Medical (eight) Branch hours as needed for Nausea and Vomiting (N/V). pantoprazol 2020-0 Yes [id number] 40mg Take 1 [facility] e 4-18 tablet by [facility] (PROTONIX) 00:00: mouth [place] 40 mg EC 00 daily. [facility] tablet Branch dicyclomine 2020-0 Yes [id number] 20mg Take 1 [facility] 20 mg 4-18 tablet by [facility] tablet 00:00: mouth [place] 00 every 6 [facility] (six) Branch hours as needed for Abdominal pain. ondansetron 2020-0 Yes [id number] 4mg Take 1 [facility] ([facility]) 4 4-18 tablet by [facility] mg tablet 00:00: mouth [place] 00 every 8 [facility] (eight) Branch hours as needed for Nausea and Vomiting (N/V). pantoprazol 2020-0 Yes [id number] 40mg Take 1 [facility] e 4-18 tablet by [facility] (PROTONIX) 00:00: mouth [place] 40 mg EC 00 daily. [facility] tablet Branch dicyclomine 2020-0 Yes [id number] 20mg Take 1 [facility] 20 mg 4-18 tablet by [facility] tablet 00:00: mouth [place] 00 every 6 [facility] (six) Branch hours as needed for Abdominal pain. ondansetron 2020-0 Yes [id number] 4mg Take 1 [facility] ([facility]) 4 4-18 tablet by [facility] mg tablet 00:00: mouth [place] 00 every 8 Medical (eight) Branch hours as needed for Nausea and Vomiting (N/V). pantoprazol 2020-0 Yes [id number] 40mg Take 1 [facility] e 4-18 tablet by [facility] (PROTONIX) 00:00: mouth [place] 40 mg EC 00 daily. [facility] tablet Branch dicyclomine 2020-0 Yes [id number] 20mg Take 1 [facility] 20 mg 4-18 tablet by [facility] tablet 00:00: mouth [place] 00 every 6 Medical (six) Branch hours as needed for Abdominal pain. ondansetron 2020-0 Yes [id number] 4mg Take 1 [facility] ([facility]) 4 4-18 tablet by [facility] mg tablet 00:00: mouth [place] 00 every 8 [facility] (eight) Branch hours as needed for Nausea and Vomiting (N/V). pantoprazol 2020-0 Yes [id number] 40mg Take 1 [facility] e 4-18 tablet by [facility] (PROTONIX) 00:00: mouth [place] 40 mg EC 00 daily. [facility] tablet Branch dicyclomine 2020-0 Yes [id number] 20mg Take 1 [facility] 20 mg 4-18 tablet by [facility] tablet 00:00: mouth [place] 00 every 6 [facility] (six) Branch hours as needed for Abdominal pain. ondansetron 2020-0 Yes [id number] 4mg Take 1 [facility] ([facility]) 4 4-18 tablet by [facility] mg tablet 00:00: mouth [place] 00 every 8 [facility] (eight) Branch hours as needed for Nausea and Vomiting (N/V). pantoprazol 2020-0 Yes [id number] 40mg Take 1 [facility] e 4-18 tablet by [facility] (PROTONIX) 00:00: mouth [place] 40 mg EC 00 daily. [facility] tablet Branch dicyclomine 2020-0 Yes [id number] 20mg Take 1 [facility] 20 mg 4-18 tablet by [facility] tablet 00:00: mouth [place] 00 every 6 [facility] (six) Branch hours as needed for Abdominal pain. ondansetron 2020-0 Yes [id number] 4mg Take 1 [facility] ([facility]) 4 4-18 tablet by [facility] mg tablet 00:00: mouth [place] 00 every 8 [facility] (eight) Branch hours as needed for Nausea and Vomiting (N/V). pantoprazol 2020-0 Yes [id number] 40mg Take 1 [facility] e 4-18 tablet by [facility] (PROTONIX) 00:00: mouth [place] 40 mg EC 00 daily. [facility] tablet Branch dicyclomine 2020-0 Yes [id number] 20mg Take 1 [facility] 20 mg 4-18 tablet by [facility] tablet 00:00: mouth [place] 00 every 6 [facility] (six) Branch hours as needed for Abdominal pain. ondansetron 2020-0 Yes [id number] 4mg Take 1 [facility] ([facility]) 4 4-18 tablet by [facility] mg tablet 00:00: mouth [place] 00 every 8 [facility] (eight) Branch hours as needed for Nausea and Vomiting (N/V). pantoprazol 2020-0 Yes [id number] 40mg Take 1 [facility] e 4-18 tablet by [facility] (PROTONIX) 00:00: mouth [place] 40 mg EC 00 daily. [facility] tablet Branch dicyclomine 2020-0 Yes [id number] 20mg Take 1 [facility] 20 mg 4-18 tablet by [facility] tablet 00:00: mouth [place] 00 every 6 [facility] (six) Branch hours as needed for Abdominal pain. ondansetron 2020-0 Yes [id number] 4mg Take 1 [facility] ([facility]) 4 4-18 tablet by [facility] mg tablet 00:00: mouth [place] 00 every 8 [facility] (eight) Branch hours as needed for Nausea and Vomiting (N/V). pantoprazol 2020-0 Yes [id number] 40mg Take 1 [facility] e 4-18 tablet by [facility] (PROTONIX) 00:00: mouth [place] 40 mg EC 00 daily. [facility] tablet Branch dicyclomine 2020-0 Yes [id number] 20mg Take 1 [facility] 20 mg 4-18 tablet by [facility] tablet 00:00: mouth [place] 00 every 6 [facility] (six) Branch hours as needed for Abdominal pain. ondansetron 2020-0 Yes [id number] 4mg Take 1 [facility] ([facility]) 4 4-18 tablet by [facility] mg tablet 00:00: mouth [place] 00 every 8 [facility] (eight) Branch hours as needed for Nausea and Vomiting (N/V). pantoprazol 2020-0 Yes [id number] 40mg Take 1 [facility] e 4-18 tablet by [facility] (PROTONIX) 00:00: mouth [place] 40 mg EC 00 daily. [facility] tablet Branch dicyclomine 2020-0 Yes [id number] 20mg Take 1 [facility] 20 mg 4-18 tablet by [facility] tablet 00:00: mouth [place] 00 every 6 [facility] (six) Branch hours as needed for Abdominal pain. ondansetron 2020-0 Yes [id number] 4mg Take 1 [facility] ([facility]) 4 4-18 tablet by [facility] mg tablet 00:00: mouth [place] 00 every 8 [facility] (eight) Branch hours as needed for Nausea and Vomiting (N/V). pantoprazol 2020-0 Yes [id number] 40mg Take 1 [facility] e 4-18 tablet by [facility] (PROTONIX) 00:00: mouth [place] 40 mg EC 00 daily. [facility] tablet Branch dicyclomine 2020-0 Yes [id number] 20mg Take 1 [facility] 20 mg 4-18 tablet by [facility] tablet 00:00: mouth [place] 00 every 6 Medical (six) Branch hours as needed for Abdominal pain. ondansetron 2020-0 Yes [id number] 4mg Take 1 [facility] ([facility]) 4 4-18 tablet by [facility] mg tablet 00:00: mouth [place] 00 every 8 Medical (eight) Branch hours as needed for Nausea and Vomiting (N/V). pantoprazol 2020-0 Yes [id number] 40mg Take 1 [facility] e 4-18 tablet by [facility] (PROTONIX) 00:00: mouth [place] 40 mg EC 00 daily. [facility] tablet Branch dicyclomine 2020-0 Yes [id number] 20mg Take 1 [facility] 20 mg 4-18 tablet by [facility] tablet 00:00: mouth [place] 00 every 6 Medical (six) Branch hours as needed for Abdominal pain. ondansetron 0 Yes [id number] 4mg Take 1 [facility] ([facility]) 4 4-18 tablet by [facility] mg tablet 00:00: mouth [place] 00 every 8 [facility] (eight) Branch hours as needed for Nausea and Vomiting (N/V). pantoprazol 0 Yes [id number] 40mg Take 1 [facility] e 4-18 tablet by [facility] (PROTONIX) 00:00: mouth [place] 40 mg EC 00 daily. [facility] tablet Branch dicyclomine 0 Yes [id number] 20mg Take 1 [facility] 20 mg 4-18 tablet by [facility] tablet 00:00: mouth [place] 00 every 6 Medical (six) Branch hours as needed for Abdominal pain. ondansetron 0 Yes [id number] 4mg Take 1 [facility] ([facility]) 4 4-18 tablet by [facility] mg tablet 00:00: mouth [place] 00 every 8 [facility] (eight) Branch hours as needed for Nausea and Vomiting (N/V). pantoprazol 0 Yes [id number] 40mg Take 1 [facility] e 4-18 tablet by [facility] (PROTONIX) 00:00: mouth [place] 40 mg EC 00 daily. [facility] tablet Branch dicyclomine 2020-0 Yes [id number] 20mg Take 1 [facility] 20 mg 4-18 tablet by [facility] tablet 00:00: mouth [place] 00 every 6 Medical (six) Branch hours as needed for Abdominal pain. ondansetron 2020-0 Yes [id number] 4mg Take 1 [facility] ([facility]) 4 4-18 tablet by [facility] mg tablet 00:00: mouth [place] 00 every 8 Medical (eight) Branch hours as needed for Nausea and Vomiting (N/V). pantoprazol 2020-0 Yes [id number] 40mg Take 1 [facility] e 4-18 tablet by [facility] (PROTONIX) 00:00: mouth [place] 40 mg EC 00 daily. [facility] tablet Branch dicyclomine 2020-0 Yes [id number] 20mg Take 1 [facility] 20 mg 4-18 tablet by [facility] tablet 00:00: mouth [place] 00 every 6 Medical (six) Branch hours as needed for Abdominal pain. ondansetron 2020-0 Yes [id number] 4mg Take 1 [facility] ([facility]) 4 4-18 tablet by [facility] mg tablet 00:00: mouth [place] 00 every 8 Medical (eight) Branch hours as needed for Nausea and Vomiting (N/V). pantoprazol 2020-0 Yes [id number] 40mg Take 1 [facility] e 4-18 tablet by [facility] (PROTONIX) 00:00: mouth [place] 40 mg EC 00 daily. [facility] tablet Branch dicyclomine 2020-0 Yes [id number] 20mg Take 1 [facility] 20 mg 4-18 tablet by [facility] tablet 00:00: mouth [place] 00 every 6 Medical (six) Branch hours as needed for Abdominal pain. ondansetron 2020-0 Yes [id number] 4mg Take 1 [facility] ([facility]) 4 4-18 tablet by [facility] mg tablet 00:00: mouth [place] 00 every 8 Medical (eight) Branch hours as needed for Nausea and Vomiting (N/V). pantoprazol 2020-0 Yes [id number] 40mg Take 1 [facility] e 4-18 tablet by [facility] (PROTONIX) 00:00: mouth [place] 40 mg EC 00 daily. [facility] tablet Branch dicyclomine 2020-0 Yes [id number] 20mg Take 1 [facility] 20 mg 4-18 tablet by [facility] tablet 00:00: mouth [place] 00 every 6 Medical (six) Branch hours as needed for Abdominal pain. ondansetron 2020-0 Yes [id number] 4mg Take 1 [facility] ([facility]) 4 4-18 tablet by [facility] mg tablet 00:00: mouth [place] 00 every 8 Medical (eight) Branch hours as needed for Nausea and Vomiting (N/V). pantoprazol 2020-0 Yes [id number] 40mg Take 1 [facility] e 4-18 tablet by [facility] (PROTONIX) 00:00: mouth [place] 40 mg EC 00 daily. [facility] tablet Branch dicyclomine Yes [id number] 20mg Take 1 [facility] 20 mg 4-18 tablet by [facility] tablet 00:00: mouth [place] 00 every 6 Medical (six) Branch hours as needed for Abdominal pain. ondansetron Yes [id number] 4mg Take 1 [facility] ([facility]) 4 4-18 tablet by [facility] mg tablet 00:00: mouth [place] 00 every 8 Medical (eight) Branch hours as needed for Nausea and Vomiting (N/V). pantoprazol Yes [id number] 40mg Take 1 [facility] e 4-18 tablet by [facility] (PROTONIX) 00:00: mouth [place] 40 mg EC 00 daily. [facility] tablet Branch dicyclomine Yes [id number] 20mg Take 1 [facility] 20 mg 4-18 tablet by ity of tablet 00:00: mouth [place] 00 every 6 Medical (six) Branch hours as needed for Abdominal pain. ondansetron Yes [id number] 4mg Take 1 [facility] (ZOFR[facility]) 4 4-18 tablet by ity of mg tablet 00:00: mouth [place] 00 every 8 Medical (eight) Branch hours as needed for Nausea and Vomiting (N/V). ondansetron 2022- No [id number] 4mg Take 1 [facility] (ZOFRAN) 4 4-18 06-27 tablet by ity of mg tablet 00:00: 00:00 mouth [place] 00 :00 every 8 Medical (eight) Branch hours as needed for Nausea and Vomiting (N/V). ondansetron 2022- No [id number] 4mg Take 1 [facility] (ZOFRAN) 4 4-18 [...] (scale 1-3). Indication s: acute pain acetaminoph 2020- Yes 4647 1{tbl} Take 1 [facility] en-codeine 8-08 tablet by ity of (TYLENOL-CO 00:00: mouth [place] DEINE #3) 00 every 4 Medical 300-30 mg (four) Branch tablet hours as needed for Pain (scale 1-3). Indication s: acute pain acetaminoph 2022- No 4647 1{tbl} Take 1 [facility] n[facility] en-codeine 8-08 10-05 tablet by [facility] of (TYLENOL-CO 00:00: [place] DE[place] #3[place] :00 every 4 Medical 300-30 mg (four) Branch tablet hours as needed for Pain (scale 1-3). Indication s: acute pain acetaminoph 2022- No 4647 1{tbl} Take 1 [facility] n[facility] en-codeine 8-08 10-05 tablet by [facility] of (TYLENOL-CO 00:00: [place] DE[place] #3[place] 00 :00 every 4 Medical 300-30 mg (four) Branch tablet hours as needed for Pain (scale 1-3). Indication s: acute pain Acetaminoph Acetaminoph 0 Yes JOSEFINA Take 1 po [facility] en-Codeine [...] 00 DAILY UNTIL FINISHED. nystatin 2020-0 Yes [id number] Apply to [facility] 100,000 2-05 affected ity of unit/gram 00:00: area(s) 3 [facility] as ointment 00 (three) Medical times Branch daily. nystatin 2020-0 Yes [id number] Apply to [facility] 100,000 2-05 affected ity of unit/gram 00:00: area(s) 3 [facility] as ointment 00 (three) Medical times Branch daily. nystatin 2020-0 Yes [id number] Apply to [facility] 100,000 2-05 affected ity of unit/gram 00:00: area(s) 3 [facility] as ointment 00 (three) Medical times Branch daily. nystatin 2020-0 Yes [id number] Apply to [facility] 100,000 2-05 affected ity of unit/gram 00:00: area(s) 3 [facility] as ointment 00 (three) Medical times Branch daily. nystatin 2020-0 Yes [id number] Apply to [facility] 100,000 2-05 affected ity of unit/gram 00:00: area(s) 3 [facility] as ointment 00 (three) Medical times Branch daily. nystatin 2020-0 Yes [id number] Apply to [facility] 100,000 2-05 affected ity of unit/gram 00:00: area(s) 3 [facility] as ointment 00 (three) Medical times Branch daily. nystatin 2020-0 Yes [id number] Apply to [facility] 100,000 2-05 affected ity of unit/gram 00:00: area(s) 3 [facility] as ointment 00 (three) Medical times Branch daily. nystatin 2020-0 Yes [id number] Apply to [facility] 100,000 2-05 affected ity of unit/gram 00:00: area(s) 3 [facility] as ointment 00 (three) Medical times Branch daily. nystatin 2020-0 Yes [id number] Apply to [facility] 100,000 2-05 affected ity of unit/gram 00:00: area(s) 3 [facility] as ointment 00 (three) Medical times Branch daily. nystatin 2020-0 Yes [id number] Apply to [facility] 100,000 2-05 affected ity of unit/gram 00:00: area(s) 3 [facility] ointment 00 (three) Medical times Branch daily. nystatin 2020-0 Yes [id number] Apply to [facility] 100,000 2-05 affected ity of unit/gram 00:00: area(s) 3 [facility] as ointment 00 (three) Medical times Branch daily. nystatin 2020-0 Yes [id number] Apply to [facility] 100,000 2-05 affected ity of unit/gram 00:00: area(s) 3 [facility] as ointment 00 (three) Medical times Branch daily. nystatin 2020-0 Yes [id number] Apply to [facility] 100,000 2-05 affected ity of unit/gram 00:00: area(s) 3 [facility] as ointment 00 (three) Medical times Branch daily. nystatin 2020-0 Yes [id number] Apply to [facility] 100,000 2-05 affected ity of unit/gram 00:00: area(s) 3 [facility] ointment 00 (three) Medical times Branch daily. nystatin 2020-0 Yes [id number] Apply to [facility] 100,000 2-05 affected ity of unit/gram 00:00: area(s) 3 [facility] as ointment 00 (three) Medical times Branch daily. nystatin 2020-0 Yes [id number] Apply to [facility] 100,000 2-05 affected ity of unit/gram 00:00: area(s) 3 [facility] as ointment 00 (three) Medical times Branch daily. nystatin 2020-0 Yes [id number] Apply to [facility] 100,000 2-05 affected ity of unit/gram 00:00: area(s) 3 [facility] ointment 00 (three) Medical times Branch daily. nystatin 2020-0 Yes [id number] Apply to [facility] 100,000 2-05 affected ity of unit/gram 00:00: area(s) 3 [facility] as ointment 00 (three) Medical times Branch daily. nystatin 2020-0 Yes [id number] Apply to [facility] 100,000 2-05 affected ity of unit/gram 00:00: area(s) 3 [facility] ointment 00 (three) Medical times Branch daily. nystatin 2020-0 Yes [id number] Apply to [facility] 100,000 2-05 affected ity of unit/gram 00:00: area(s) 3 [facility] as ointment 00 (three) Medical times Branch daily. nystatin 2020-0 Yes [id number] Apply to [facility] 100,000 2-05 affected ity of unit/gram 00:00: area(s) 3 [facility] as ointment 00 (three) Medical times Branch daily. nystatin 2020-0 Yes [id number] Apply to [facility] 100,000 2-05 affected ity of unit/gram 00:00: area(s) 3 [facility] as ointment 00 (three) Medical times Branch daily. nystatin 2020-0 Yes [id number] Apply to [facility] 100,000 2-05 affected ity of unit/gram 00:00: area(s) 3 [facility] as ointment 00 (three) Medical times Branch daily. nystatin 2020-0 Yes [id number] Apply to [facility] 100,000 2-05 affected ity of unit/gram 00:00: area(s) 3 [facility] ointment 00 (three) Medical times Branch daily. nystatin 2020-0 Yes [id number] Apply to [facility] 100,000 2-05 affected ity of unit/gram 00:00: area(s) 3 [facility] ointment 00 (three) Medical times Branch daily. nystatin 2020-0 Yes [id number] Apply to [facility] 100,000 2-05 affected ity of unit/gram 00:00: area(s) 3 [facility] as ointment 00 (three) Medical times Branch daily. nystatin 2020-0 Yes [id number] Apply to [facility] 100,000 2-05 affected ity of unit/gram 00:00: area(s) 3 [facility] as ointment 00 (three) Medical times Branch daily. nystatin 2020-0 Yes [id number] Apply to [facility] 100,000 2-05 affected ity of unit/gram 00:00: area(s) 3 [facility] ointment 00 (three) Medical times Branch daily. nystatin 2020-0 Yes [id number] Apply to [facility] 100,000 2-05 affected ity of unit/gram 00:00: area(s) 3 [facility] ointment 00 (three) Medical times Branch daily. nystatin 2020-0 Yes [id number] Apply to [facility] 100,000 2-05 affected ity of unit/gram 00:00: area(s) 3 [facility] as ointment 00 (three) Medical times Branch daily. nystatin 2020-0 Yes [id number] Apply to [facility] 100,000 2-05 affected ity of unit/gram 00:00: area(s) 3 [facility] ointment 00 (three) Medical times Branch daily. nystatin 2020-0 Yes [id number] Apply to [facility] 100,000 2-05 affected ity of unit/gram 00:00: area(s) 3 [facility] as ointment 00 (three) Medical times Branch daily. nystatin 2020-0 Yes [id number] Apply to [facility] 100,000 2-05 affected ity of unit/gram 00:00: area(s) 3 [facility] ointment 00 (three) Medical times Branch daily. nystatin 2020-0 Yes [id number] Apply to [facility] 100,000 2-05 affected ity of unit/gram 00:00: area(s) 3 [facility] ointment 00 (three) Medical times Branch daily. nystatin 2020-0 Yes [id number] Apply to [facility] 100,000 2-05 affected ity of unit/gram 00:00: area(s) 3 [facility] ointment 00 (three) Medical times Branch daily. nystatin 2020-0 Yes [id number] Apply to [facility] 100,000 2-05 affected ity of unit/gram 00:00: area(s) 3 [facility] ointment 00 (three) Medical times Branch daily. nystatin 2020-0 Yes [id number] Apply to [facility] 100,000 2-05 affected ity of unit/gram 00:00: area(s) 3 [facility] ointment 00 (three) Medical times Branch daily. nystatin 2020-0 Yes [id number] Apply to [facility] 100,000 2-05 affected ity of unit/gram 00:00: area(s) 3 [facility] ointment 00 (three) Medical times Branch daily. nystatin 2020-0 Yes [id number] Apply to [facility] 100,000 2-05 affected ity of unit/gram 00:00: area(s) 3 [facility] ointment 00 (three) Medical times Branch daily. nystatin 2020-0 Yes [id number] Apply to [facility] 100,000 2-05 affected ity of unit/gram 00:00: area(s) 3 [facility] ointment 00 (three) Medical times Branch daily. nystatin 2020-0 Yes [id number] Apply to [facility] 100,000 2-05 affected ity of unit/gram 00:00: area(s) 3 [facility] ointment 00 (three) Medical times Branch daily. nystatin 2020-0 Yes [id number] Apply to [facility] 100,000 2-05 affected ity of unit/gram 00:00: area(s) 3 [facility] ointment 00 (three) Medical times Branch daily. nystatin 2020-0 Yes [id number] Apply to [facility] 100,000 2-05 affected ity of unit/gram 00:00: area(s) 3 [facility] ointment 00 (three) Medical times Branch daily. nystatin 2020-0 Yes [id number] Apply to [facility] 100,000 2-05 affected ity of unit/gram 00:00: area(s) 3 [facility] ointment 00 (three) Medical times Branch daily. nystatin 2020-0 Yes [id number] Apply to [facility] 100,000 2-05 affected ity of unit/gram 00:00: area(s) 3 [facility] ointment 00 (three) Medical times Branch daily. nystatin 2020-0 Yes [id number] Apply to [facility] 100,000 2-05 affected ity of unit/gram 00:00: area(s) 3 [facility] ointment 00 (three) Medical times Branch daily. nystatin 2020-0 Yes [id number] Apply to [facility] 100,000 2-05 affected ity of unit/gram 00:00: area(s) 3 [facility] ointment 00 (three) Medical times Branch daily. nystatin 2020-0 Yes [id number] Apply to [facility] 100,000 2-05 affected ity of unit/gram 00:00: area(s) 3 [facility] ointment 00 (three) Medical times Branch daily. nystatin 2020-0 Yes [id number] Apply to [facility] 100,000 2-05 affected ity of unit/gram 00:00: area(s) 3 [facility] ointment 00 (three) Medical times Branch daily. nystatin 2020-0 Yes [id number] Apply to [facility] 100,000 2-05 affected ity of unit/gram 00:00: area(s) 3 [facility] as ointment 00 (three) Medical times Branch daily. nystatin 2020-0 Yes [id number] Apply to [facility] 100,000 2-05 affected ity of unit/gram 00:00: area(s) 3 [facility] as ointment 00 (three) Medical times Branch daily. nystatin 2020-0 Yes [id number] Apply to [facility] 100,000 2-05 affected ity of unit/gram 00:00: area(s) 3 [facility] as ointment 00 (three) Medical times Branch daily. nystatin 2020-0 Yes [id number] Apply to [facility] 100,000 2-05 affected ity of unit/gram 00:00: area(s) 3 [facility] as ointment 00 (three) Medical times Branch daily. nystatin 2020-0 Yes [id number] Apply to [facility] 100,000 2-05 affected ity of unit/gram 00:00: area(s) 3 [facility] as ointment 00 (three) Medical times Branch daily. nystatin 2020-0 Yes [id number] Apply to [facility] 100,000 2-05 affected ity of unit/gram 00:00: area(s) 3 [facility] as ointment 00 (three) Medical times Branch daily. nystatin 2020-0 Yes [id number] Apply to [facility] 100,000 2-05 affected ity of unit/gram 00:00: area(s) 3 [facility] ointment 00 (three) Medical times Branch daily. nystatin 2020-0 Yes [id number] Apply to [facility] 100,000 2-05 affected ity of unit/gram 00:00: area(s) 3 [facility] as ointment 00 (three) Medical times Branch daily. nystatin 2020-0 Yes [id number] Apply to [facility] 100,000 2-05 affected ity of unit/gram 00:00: area(s) 3 [facility] as ointment 00 (three) Medical times Branch daily. nystatin 2020-0 Yes [id number] Apply to [facility] 100,000 2-05 affected ity of unit/gram 00:00: area(s) 3 [facility] as ointment 00 (three) Medical times Branch daily. nystatin 2020-0 Yes [id number] Apply to [facility] 100,000 2-05 affected ity of unit/gram 00:00: area(s) 3 [facility] as ointment 00 (three) Medical times Branch daily. nystatin 2020-0 Yes [id number] Apply to [facility] 100,000 2-05 affected ity of unit/gram 00:00: area(s) 3 [facility] as ointment 00 (three) Medical times Branch daily. nystatin 2020-0 Yes [id number] Apply to [facility] 100,000 2-05 affected ity of unit/gram 00:00: area(s) 3 [facility] as ointment 00 (three) Medical times Branch daily. nystatin 2020-0 Yes [id number] Apply to [facility] 100,000 2-05 affected ity of unit/gram 00:00: area(s) 3 [facility] as ointment 00 (three) Medical times Branch daily. nystatin 2020-0 Yes [id number] Apply to [facility] 100,000 2-05 affected ity of unit/gram 00:00: area(s) 3 [facility] as ointment 00 (three) Medical times Branch daily. nystatin 2020-0 Yes [id number] Apply to [facility] 100,000 2-05 affected ity of unit/gram 00:00: area(s) 3 [facility] as ointment 00 (three) Medical times Branch daily. nystatin 2020-0 Yes [id number] Apply to [facility] 100,000 2-05 affected ity of unit/gram 00:00: area(s) 3 [facility] as ointment 00 (three) Medical times Branch daily. nystatin 2020-0 Yes [id number] Apply to [facility] 100,000 2-05 affected ity of unit/gram 00:00: area(s) 3 [facility] as ointment 00 (three) Medical times Branch daily. nystatin 2020-0 Yes [id number] Apply to [facility] 100,000 2-05 affected ity of unit/gram 00:00: area(s) 3 [facility] as ointment 00 (three) Medical times Branch daily. nystatin 2020-0 Yes [id number] Apply to [facility] 100,000 2-05 affected ity [...] Tablet Tablet 00 DIRECTED. medroxyPROG 2019- Yes [id number] 150mg [facility] ESTERone 5-14 ity of (DEPO-PROVE 18:30: [place] [facility]) 00 Medical injection Branch 150 mg medroxyPROG 2019-0 Yes [id number] 150mg [facility] ESTERone 5-14 ity of (DEPO-PROVE 18:30: [place] [facility]) 00 Medical injection Branch 150 mg medroxyPROG 2019-0 Yes [id number] 150mg [facility] ESTERone 5-14 ity of (DEPO-PROVE 18:30: [place] [facility]) 00 Medical injection Branch 150 mg medroxyPROG 2019-0 Yes [id number] 150mg [facility] ESTERone 5-14 ity of (DEPO-PROVE 18:30: [place] [facility]) 00 Medical injection Branch 150 mg medroxyPROG 2019-0 Yes [id number] 150mg [facility] ESTERone 5-14 ity of (DEPO-PROVE 18:30: [place] RA) 00 Medical injection Branch 150 mg medroxyPROG 2019-0 Yes [id number] 150mg [facility] ESTERone 5-14 ity of (DEPO-PROVE 18:30: [place] RA) 00 Medical injection Branch 150 mg medroxyPROG 2019-0 Yes [id number] 150mg [facility] ESTERone 5-14 ity of (DEPO-PROVE 18:30: [place] RA) 00 Medical injection Branch 150 mg medroxyPROG 2019-0 Yes [id number] 150mg [facility] ESTERone 5-14 ity of (DEPO-PROVE 18:30: [place] RA) 00 Medical injection Branch 150 mg medroxyPROG 2019-0 Yes [id number] 150mg [facility] ESTERone 5-14 ity of (DEPO-PROVE 18:30: [place] RA) 00 Medical injection Branch 150 mg medroxyPROG 2019-0 Yes [id number] 150mg [facility] ESTERone 5-14 ity of (DEPO-PROVE 18:30: [place] RA) 00 Medical injection Branch 150 mg medroxyPROG 2019-0 Yes [id number] 150mg [facility] ESTERone 5-14 ity of (DEPO-PROVE 18:30: [place] RA) 00 Medical injection Branch 150 mg medroxyPROG 2019-0 Yes [id number] 150mg [facility] ESTERone 5-14 ity of (DEPO-PROVE 18:30: [place] RA) 00 Medical injection Branch 150 mg medroxyPROG 2019-0 Yes [id number] 150mg [facility] ESTERone 5-14 ity of (DEPO-PROVE 18:30: [place] RA) 00 Medical injection Branch 150 mg medroxyPROG 2019-0 Yes [id number] 150mg [facility] ESTERone 5-14 ity of (DEPO-PROVE 18:30: [place] RA) 00 Medical injection Branch 150 mg medroxyPROG 2019-0 Yes [id number] 150mg [facility] ESTERone 5-14 ity of (DEPO-PROVE 18:30: [place] RA) 00 Medical injection Branch 150 mg medroxyPROG 2019-0 Yes [id number] 150mg [facility] ESTERone 5-14 ity of (DEPO-PROVE 18:30: [place] RA) 00 Medical injection Branch 150 mg medroxyPROG 2019-0 Yes [id number] 150mg [facility] ESTERone 5-14 ity of (DEPO-PROVE 18:30: [place] RA) 00 Medical injection Branch 150 mg medroxyPROG 2019-0 Yes [id number] 150mg [facility] ESTERone 5-14 ity of (DEPO-PROVE 18:30: [place] [facility]) 00 Medical injection Branch 150 mg medroxyPROG 2019-0 Yes [id number] 150mg [facility] ESTERone 5-14 ity of (DEPO-PROVE 18:30: [place] RA) 00 Medical injection Branch 150 mg medroxyPROG 2019-0 Yes [id number] 150mg [facility] ESTERone 5-14 ity of (DEPO-PROVE 18:30: [place] RA) 00 Medical injection Branch 150 mg medroxyPROG 2019-0 Yes [id number] 150mg [facility] ESTERone 5-14 ity of (DEPO-PROVE 18:30: [place] RA) 00 Medical injection Branch 150 mg medroxyPROG 2019-0 Yes [id number] 150mg [facility] ESTERone 5-14 ity of (DEPO-PROVE 18:30: [place] RA) 00 Medical injection Branch 150 mg medroxyPROG 2019-0 Yes [id number] 150mg [facility] ESTERone 5-14 ity of (DEPO-PROVE 18:30: [place] RA) 00 Medical injection Branch 150 mg medroxyPROG 2019-0 Yes [id number] 150mg [facility] ESTERone 5-14 ity of (DEPO-PROVE 18:30: [place] RA) 00 Medical injection Branch 150 mg medroxyPROG 2019-0 Yes [id number] 150mg [facility] ESTERone 5-14 ity of (DEPO-PROVE 18:30: [place] RA) 00 Medical injection Branch 150 mg medroxyPROG 2019-0 Yes [id number] 150mg [facility] ESTERone 5-14 ity of (DEPO-PROVE 18:30: [place] RA) 00 Medical injection Branch 150 mg medroxyPROG 2019-0 Yes [id number] 150mg [facility] ESTERone 5-14 ity of (DEPO-PROVE 18:30: [place] [facility]) 00 Medical injection Branch 150 mg medroxyPROG 2019-0 Yes [id number] 150mg [facility] ESTERone 5-14 ity of (DEPO-PROVE 18:30: [place] RA) 00 Medical injection Branch 150 mg medroxyPROG 2019-0 Yes [id number] 150mg [facility] ESTERone 5-14 ity of (DEPO-PROVE 18:30: [place] [facility]) 00 Medical injection Branch 150 mg medroxyPROG 2019-0 Yes [id number] 150mg [facility] ESTERone 5-14 ity of (DEPO-PROVE 18:30: [place] [facility]) 00 Medical injection Branch 150 mg medroxyPROG 2019-0 Yes [id number] 150mg [facility] ESTERone 5-14 ity of (DEPO-PROVE 18:30: [place] [facility]) 00 Medical injection Branch 150 mg medroxyPROG 2019-0 Yes [id number] 150mg [facility] ESTERone 5-14 ity of (DEPO-PROVE 18:30: [place] RA) 00 Medical injection Branch 150 mg medroxyPROG 2019-0 Yes [id number] 150mg [facility] ESTERone 5-14 ity of (DEPO-PROVE 18:30: [place] RA) 00 Medical injection Branch 150 mg medroxyPROG 2019-0 Yes [id number] 150mg [facility] ESTERone 5-14 ity of (DEPO-PROVE 18:30: [place] RA) 00 Medical injection Branch 150 mg medroxyPROG 2019-0 Yes [id number] 150mg [facility] ESTERone 5-14 ity of (DEPO-PROVE 18:30: [place] [facility]) 00 Medical injection Branch 150 mg medroxyPROG 2019-0 Yes [id number] 150mg [facility] ESTERone 5-14 ity of (DEPO-PROVE 18:30: [place] [facility]) 00 Medical injection Branch 150 mg medroxyPROG 2019-0 Yes [id number] 150mg [facility] ESTERone 5-14 ity of (DEPO-PROVE 18:30: [place] RA) 00 Medical injection Branch 150 mg medroxyPROG 2019-0 Yes [id number] 150mg [facility] ESTERone 5-14 ity of (DEPO-PROVE 18:30: [place] [facility]) 00 Medical injection Branch 150 mg medroxyPROG 2019-0 Yes [id number] 150mg [facility] ESTERone 5-14 ity of (DEPO-PROVE 18:30: [place] [facility]) 00 Medical injection Branch 150 mg medroxyPROG 2019-0 Yes [id number] 150mg [facility] ESTERone 5-14 ity of (DEPO-PROVE 18:30: [place] [facility]) 00 Medical injection Branch 150 mg medroxyPROG 2019-0 Yes [id number] 150mg [facility] ESTERone 5-14 ity of (DEPO-PROVE 18:30: [place] [facility]) 00 Medical injection Branch 150 mg medroxyPROG 2019-0 Yes [id number] 150mg [facility] ESTERone 5-14 ity of (DEPO-PROVE 18:30: [place] [facility]) 00 Medical injection Branch 150 mg medroxyPROG 2019-0 Yes [id number] 150mg [facility] ESTERone 5-14 ity of (DEPO-PROVE 18:30: [place] [facility]) 00 Medical injection Branch 150 mg medroxyPROG 2019-0 Yes [id number] 150mg [facility] ESTERone 5-14 ity of (DEPO-PROVE 18:30: [place] [facility]) 00 Medical injection Branch 150 mg medroxyPROG 2019-0 Yes [id number] 150mg [facility] ESTERone 5-14 ity of (DEPO-PROVE 18:30: [place] RA) 00 Medical injection Branch 150 mg medroxyPROG 2019-0 Yes [id number] 150mg [facility] ESTERone 5-14 ity of (DEPO-PROVE 18:30: [place] [facility]) 00 Medical injection Branch 150 mg medroxyPROG 2019-0 Yes [id number] 150mg [facility] ESTERone 5-14 ity of (DEPO-PROVE 18:30: [place] [facility]) 00 Medical injection Branch 150 mg medroxyPROG 2019-0 Yes [id number] 150mg [facility] ESTERone 5-14 ity of (DEPO-PROVE 18:30: [place] [facility]) 00 Medical injection Branch 150 mg medroxyPROG 2019-0 Yes [id number] 150mg [facility] ESTERone 5-14 ity of (DEPO-PROVE 18:30: [place] RA) 00 Medical injection Branch 150 mg medroxyPROG 2019-0 Yes [id number] 150mg [facility] ESTERone 5-14 ity of (DEPO-PROVE 18:30: [place] [facility]) 00 Medical injection Branch 150 mg medroxyPROG 2019-0 Yes [id number] 150mg [facility] ESTERone 5-14 ity of (DEPO-PROVE 18:30: [place] [facility]) 00 Medical injection Branch 150 mg medroxyPROG 2019-0 Yes [id number] 150mg [facility] ESTERone 5-14 ity of (DEPO-PROVE 18:30: [place] [facility]) 00 Medical injection Branch 150 mg medroxyPROG 2019-0 Yes [id number] 150mg [facility] ESTERone 5-14 ity of (DEPO-PROVE 18:30: [place] [facility]) 00 Medical injection Branch 150 mg medroxyPROG 2019-0 Yes [id number] 150mg [facility] ESTERone 5-14 ity of (DEPO-PROVE 18:30: [place] [facility]) 00 Medical injection Branch 150 mg medroxyPROG 2019-0 Yes [id number] 150mg [facility] ESTERone 5-14 ity of (DEPO-PROVE 18:30: [place] [facility]) 00 Medical injection Branch 150 mg medroxyPROG 2019-0 Yes [id number] 150mg [facility] ESTERone 5-14 ity of (DEPO-PROVE 18:30: [place] [facility]) 00 Medical injection Branch 150 mg medroxyPROG 2019-0 Yes [id number] 150mg [facility] ESTERone 5-14 ity of (DEPO-PROVE 18:30: [place] [facility]) 00 Medical injection Branch 150 mg medroxyPROG 2019-0 Yes [id number] 150mg [facility] ESTERone 5-14 ity of (DEPO-PROVE 18:30: [place] [facility]) 00 Medical injection Branch 150 mg medroxyPROG 2019-0 Yes [id number] 150mg [facility] ESTERone 5-14 ity of (DEPO-PROVE 18:30: [place] [facility]) 00 Medical injection Branch 150 mg medroxyPROG 2019-0 Yes [id number] 150mg [facility] ESTERone 5-14 ity of (DEPO-PROVE 18:30: [place] RA) 00 Medical injection Branch 150 mg medroxyPROG 2019-0 Yes [id number] 150mg [facility] ESTERone 5-14 ity of (DEPO-PROVE 18:30: [place] [facility]) 00 Medical injection Branch 150 mg medroxyPROG 2019-0 Yes [id number] 150mg [facility] ESTERone 5-14 ity of (DEPO-PROVE 18:30: [place] [facility]) 00 Medical injection Branch 150 mg medroxyPROG 2019-0 Yes [id number] 150mg [facility] ESTERone 5-14 ity of (DEPO-PROVE 18:30: [place] [facility]) 00 Medical injection Branch 150 mg medroxyPROG 2019-0 Yes [id number] 150mg [facility] ESTERone 5-14 ity of (DEPO-PROVE 18:30: [place] [facility]) 00 Medical injection Branch 150 mg medroxyPROG 2019-0 Yes [id number] 150mg [facility] ESTERone 5-14 ity of (DEPO-PROVE 18:30: [place] [facility]) 00 Medical injection Branch 150 mg medroxyPROG 2019-0 Yes [id number] 150mg [facility] ESTERone 5-14 ity of (DEPO-PROVE 18:30: [place] [facility]) 00 Medical injection Branch 150 mg medroxyPROG 2019-0 Yes [id number] 150mg [facility] ESTERone 5-14 ity of (DEPO-PROVE 18:30: [place] [facility]) 00 Medical injection Branch 150 mg medroxyPROG 2019-0 Yes [id number] 150mg [facility] ESTERone 5-14 ity of (DEPO-PROVE 18:30: [place] [facility]) 00 Medical injection Branch 150 mg medroxyPROG 2019-0 Yes [id number] 150mg [facility] ESTERone 5-14 ity of (DEPO-PROVE 18:30: [place] [facility]) 00 Medical injection Branch 150 mg Keppra 500 Keppra 500 2019-0 Yes M.D. U T MG Oral MG Oral 1-02 [facility] Tablet Tablet 00:00: ans 00 Immunizations Ordered Immunization Filled Date Status Comments Sour ce Name Immunization Name SARS-COV-2 COVID-19 2021-08-06 Completed [facility] of PFIZER VACCINE 00:00:00 [facility] SARS-COV-2 COVID-19 2021-08-06 Completed [facility] of PFIZER VACCINE 00:00:00 [facility] SARS-COV-2 COVID-19 2021-08-06 Completed Unive rs[facility] of PFIZER VACCINE 00:00:00 [facility] SARS-COV-2 COVID-19 2021-08-06 Completed Unive rsity of PFIZER VACCINE 00:00:00 [facility] SARS-COV-2 COVID-19 2021-08-06 Completed Unive rsity of PFIZER VACCINE 00:00:00 [facility] SARS-COV-2 COVID-19 2021-08-06 Completed Unive rsity of PFIZER VACCINE 00:00:00 [facility] SARS-COV-2 COVID-19 2021-08-06 Completed Unive rsity of PFIZER VACCINE 00:00:00 [facility] SARS-COV-2 COVID-19 2021-08-06 Completed Unive rsity of PFIZER VACCINE 00:00:00 [facility] SARS-COV-2 COVID-19 2021-08-06 Completed Unive rsity of PFIZER VACCINE 00:00:00 [facility] SARS-COV-2 COVID-19 2021-08-06 Completed Unive rsity of PFIZER VACCINE 00:00:00 [facility] SARS-COV-2 COVID-19 2021-08-06 Completed Unive rsity of PFIZER VACCINE 00:00:00 [facility] SARS-COV-2 COVID-19 2021-08-06 Completed Unive rsity of PFIZER VACCINE 00:00:00 [facility] SARS-COV-2 COVID-19 2021-08-06 Completed Unive rsity of PFIZER VACCINE 00:00:00 [facility] SARS-COV-2 COVID-19 2021-08-06 Completed Unive rs[facility] of PFIZER VACCINE 00:00:00 [facility] SARS-COV-2 COVID-19 2021-08-06 Completed Unive rsity of PFIZER VACCINE 00:00:00 [facility] SARS-COV-2 COVID-19 2021-08-06 Completed Unive rsity of PFIZER VACCINE 00:00:00 [facility] SARS-COV-2 COVID-19 2021-08-06 Completed Unive rsity of PFIZER VACCINE 00:00:00 [facility] SARS-COV-2 COVID-19 2021-08-06 Completed Unive rsity of PFIZER VACCINE 00:00:00 [facility] SARS-COV-2 COVID-19 2021-08-06 Completed Unive rsity of PFIZER VACCINE 00:00:00 [facility] SARS-COV-2 COVID-19 2021-08-06 Completed Unive rsity of PFIZER VACCINE 00:00:00 [facility] SARS-COV-2 COVID-19 2021-08-06 Completed [facility] of PFIZER VACCINE 00:00:00 [facility] [facility] SARS-COV-2 COVID-19 2021-08-06 Completed [facility] PFIZER VACCINE 00:00:00 [facility] SARS-COV-2 COVID-19 2021-08-06 Completed [facility] of PFIZER VACCINE 00:00:00 [facility] SARS-COV-2 COVID-19 2021-08-06 Completed [facility] of PFIZER VACCINE 00:00:00 [facility] SARS-COV-2 COVID-19 2021-08-06 Completed [facility] of PFIZER VACCINE 00:00:00 [facility] SARS-COV-2 COVID-19 2021-08-06 Completed [facility] of PFIZER VACCINE 00:00:00 [facility] SARS-COV-2 COVID-19 2021-08-06 Completed [facility] of PFIZER VACCINE 00:00:00 [facility] SARS-COV-2 COVID-19 2021-08-06 Completed [facility] of PFIZER VACCINE 00:00:00 [facility] SARS-COV-2 COVID-19 2021-08-06 Completed [facility] of PFIZER VACCINE 00:00:00 [facility] PFIZER COVID-19 MRNA 2021-08-06 Completed Meth odist VACCINATION 00:00:00 [facility] PFIZER COVID-19 MRNA 2021-08-06 Completed Meth odist VACCINATION 00:00:00 [facility] PFIZER COVID-19 MRNA 2021-08-06 Completed Meth odist VACCINATION 00:00:00 [facility] PFIZER COVID-19 MRNA 2021-08-06 Completed [facility] VACC[facility]ATION 00:00:00 [facility] PFIZER COVID-19 MRNA 2021-08-06 Completed [facility] VACCINATION 00:00:00 [facility] PFIZER COVID-19 MRNA 2021-08-06 Completed [facility] VACCINATION 00:00:00 [facility] PFIZER COVID-19 MRNA 2021-08-06 Completed [facility] odist VACCINATION 00:00:00 [facility] PFIZER COVID-19 MRNA 2021-08-06 Completed Meth odist VACCINATION 00:00:00 [facility] PFIZER COVID-19 MRNA 2021-08-06 Completed Meth odist VACCINATION 00:00:00 [facility] SARS-COV-2 COVID-19 2021-07-09 Completed [facility] of PFIZER VACCINE 00:00:00 [facility] Influenza Virus 2021-07-09 Completed [facility] Vaccine Quad .5 mL 00:00:00 [facility] SARS-COV-2 COVID-19 2021-07-09 Completed [facility] of PFIZER VACCINE 00:00:00 [facility] Influenza Virus 2021-07-09 Completed [facility] Vaccine Quad .5 mL 00:00:00 [facility] SARS-COV-2 COVID-19 2021-07-09 Completed [facility] of PFIZER VACCINE 00:00:00 [facility] Influenza Virus 2021-07-09 Completed [facility] Vaccine Quad .5 mL 00:00:00 [facility] SARS-COV-2 COVID-19 2021-07-09 Completed [facility] of PFIZER VACCINE 00:00:00 [facility] Influenza Virus 2021-07-09 Completed [facility] Vaccine Quad .5 mL 00:00:00 [facility] SARS-COV-2 COVID-19 2021-07-09 Completed [facility] of PFIZER VACCINE 00:00:00 [facility] Influenza Virus 2021-07-09 Completed [facility] Vaccine Quad .5 mL 00:00:00 [facility] SARS-COV-2 COVID-19 2021-07-09 Completed [facility] of PFIZER VACCINE 00:00:00 [facility] Influenza Virus 2021-07-09 Completed [facility] Vaccine Quad .5 mL 00:00:00 [facility] SARS-COV-2 COVID-19 2021-07-09 Completed [facility] of PFIZER VACCINE 00:00:00 [facility] Influenza Virus 2021-07-09 Completed [facility] of Vaccine Quad .5 mL 00:00:00 [facility] 6+ MO [facility] SARS-COV-2 COVID-19 2021-07-09 Completed [facility] of PFIZER VACCINE 00:00:00 [facility] Influenza Virus 2021-07-09 Completed [facility] of Vaccine Quad .5 mL 00:00:00 [facility] 6+ MO [facility] SARS-COV-2 COVID-19 2021-07-09 Completed [facility] of PFIZER VACCINE 00:00:00 [facility] Influenza Virus 2021-07-09 Completed [facility] of Vaccine Quad .5 mL 00:00:00 [facility] 6+ MO [facility] SARS-COV-2 COVID-19 2021-07-09 Completed [facility] of PFIZER VACCINE 00:00:00 [facility] Influenza Virus 2021-07-09 Completed [facility] of Vaccine Quad .5 mL 00:00:00 [facility] 6+ MO [facility] SARS-COV-2 COVID-19 2021-07-09 Completed [facility] of PFIZER VACCINE 00:00:00 [facility] Influenza Virus 2021-07-09 Completed [facility] of Vaccine Quad .5 mL 00:00:00 [facility] 6+ MO [facility] SARS-COV-2 COVID-19 2021-07-09 Completed [facility] of PFIZER VACCINE 00:00:00 [facility] Influenza Virus 2021-07-09 Completed [facility] of Vaccine Quad .5 mL 00:00:00 [facility] 6+ MO [facility] SARS-COV-2 COVID-19 2021-07-09 Completed [facility] of PFIZER VACCINE 00:00:00 [facility] Influenza Virus 2021-07-09 Completed [facility] of Vaccine Quad .5 mL 00:00:00 [facility] 6+ MO [facility] SARS-COV-2 COVID-19 2021-07-09 Completed [facility] of PFIZER VACCINE 00:00:00 [facility] Influenza Virus 2021-07-09 Completed [facility] of Vaccine Quad .5 mL 00:00:00 [facility] IM 6+ MO Branch SARS-COV-2 COVID-19 2021-07-09 Completed [facility]ive [facility]ity of PFIZER VACCINE 00:00:00 [facility] Influenza Virus 2021-07-09 Completed [facility] Vaccine Quad .5 mL 00:00:00 [facility] SARS-COV-2 COVID-19 2021-07-09 Completed [facility] of PFIZER VACCINE 00:00:00 [facility] Influenza Virus 2021-07-09 Completed [facility] Vaccine Quad .5 mL 00:00:00 [facility] 6[facility] SARS-COV-2 COVID-19 2021-07-09 Completed [facility] of PFIZER VACCINE 00:00:00 [facility] Influenza Virus 2021-07-09 Completed [facility] of Vaccine Quad .5 mL 00:00:00 [facility] 6+ MO [facility] SARS-COV-2 COVID-19 2021-07-09 Completed [facility] of PFIZER VACCINE 00:00:00 [facility] Influenza Virus 2021-07-09 Completed [facility] of Vaccine Quad .5 mL 00:00:00 [facility] 6+ MO [facility] SARS-COV-2 COVID-19 2021-07-09 Completed [facility] of PFIZER VACCINE 00:00:00 [facility] Influenza Virus 2021-07-09 Completed [facility] of Vaccine Quad .5 mL 00:00:00 [facility] 6+ MO [facility] SARS-COV-2 COVID-19 2021-07-09 Completed [facility] of PFIZER VACCINE 00:00:00 [facility] Influenza Virus 2021-07-09 Completed [facility] of Vaccine Quad .5 mL 00:00:00 [facility] 6+ MO [facility] SARS-COV-2 COVID-19 2021-07-09 Completed [facility] of PFIZER VACCINE 00:00:00 [facility] Influenza Virus 2021-07-09 Completed [facility] Vaccine Quad .5 mL 00:00:00 [facility] 6[facility] SARS-COV-2 COVID-19 2021-07-09 Completed [facility] of PFIZER VACCINE 00:00:00 [facility] Influenza Virus 2021-07-09 Completed [facility] Vaccine Quad .5 mL 00:00:00 [facility] 6[facility] SARS-COV-2 COVID-19 2021-07-09 Completed [facility] of PFIZER VACCINE 00:00:00 [facility] Influenza Virus 2021-07-09 Completed [facility] of Vaccine Quad .5 mL 00:00:00 [facility] 6+ MO [facility] SARS-COV-2 COVID-19 2021-07-09 Completed [facility] of PFIZER VACCINE 00:00:00 [facility] Influenza Virus 2021-07-09 Completed [facility] of Vaccine Quad .5 mL 00:00:00 [facility] 6+ MO [facility] SARS-COV-2 COVID-19 2021-07-09 Completed [facility] of PFIZER VACCINE 00:00:00 [facility] Influenza Virus 2021-07-09 Completed [facility] of Vaccine Quad .5 mL 00:00:00 [facility] 6+ [place] SARS-COV-2 COVID-19 2021-07-09 Completed [facility] of PFIZER VACCINE 00:00:00 [facility] Influenza Virus 2021-07-09 Completed [facility] of Vaccine Quad .5 mL 00:00:00 [facility] 6+ [place] SARS-COV-2 COVID-19 2021-07-09 Completed [facility] of PFIZER VACCINE 00:00:00 [facility] Influenza Virus 2021-07-09 Completed [facility] of Vaccine Quad .5 mL 00:00:00 [facility] 6+ MO [facility] (FLUZONE/FLULAVAL/FL UARIX) SARS-COV-2 COVID-19 2021-07-09 Completed [facility] of PFIZER VACCINE 00:00:00 [facility] Influenza Virus 2021-07-09 Completed [facility] of Vaccine Quad .5 mL 00:00:00 [facility] 6+ MO [facility] (FLUZONE/FLULAVAL/FL UARIX) SARS-COV-2 COVID-19 2021-07-09 Completed [facility] of PFIZER VACCINE 00:00:00 [facility] Influenza Virus 2021-07-09 Completed [facility] of Vaccine Quad .5 mL 00:00:00 [facility] 6+ MO Branch (FLUZONE/FLULAVAL/FL UARIX) PFIZER COVID-19 MRNA 2021-07-09 Completed Meth odist VACCINATION 00:00:00 [facility] PFIZER COVID-19 MRNA 2021-07-09 Completed Meth odist VACCINATION 00:00:00 [facility] PFIZER COVID-19 MRNA 2021-07-09 Completed Meth odist VACCINATION 00:00:00 [facility] PFIZER COVID-19 MRNA 2021-07-09 Completed Meth odist VACCINATION 00:00:00 [facility] PFIZER COVID-19 MRNA 2021-07-09 Completed Meth odist VACCINATION 00:00:00 [facility] PFIZER COVID-19 MRNA 2021-07-09 Completed Meth odist VACCINATION 00:00:00 [facility] PFIZER COVID-19 MRNA 2021-07-09 Completed Meth odist VACCINATION 00:00:00 [facility] PFIZER COVID-19 MRNA 2021-07-09 Completed Meth odist VACCINATION 00:00:00 [facility] PFIZER COVID-19 MRNA 2021-07-09 Completed Meth odist VACCINATION 00:00:00 [facility] PFIZER COVID-19 MRNA 2021-07-09 Completed Meth odist VACCINATION 00:00:00 [facility] PFIZER COVID-19 MRNA 2021-07-09 Completed Meth odist VACCINATION 00:00:00 [facility] Tetanus/Diptheria 2016-08-11 Completed Univers ity of 00:00:00 [facility] Varicella 2016-08-11 Completed University of (varivax)(chicken 00:00:00 [facility] Tetanus/Diptheria 2016-08-11 Completed [facility] ity of 00:00:00 [facility] Varicella 2016-08-11 Completed [facility] (varivax)(chicken 00:00:00 [facility] Tetanus/Diptheria 2016-08-11 Completed [facility] ity of 00:00:00 [facility] Varicella 2016-08-11 Completed [facility] (varivax)(chicken 00:00:00 [facility] Tetanus/Diptheria 2016-08-11 Completed [facility] ity of 00:00:00 [facility] Varicella 2016-08-11 Completed [facility] (varivax)(chicken 00:00:00 [facility] Tetanus/Diptheria 2016-08-11 Completed [facility] ity of 00:00:00 [facility] Varicella 2016-08-11 Completed [facility] (varivax)(chicken 00:00:00 [facility] Tetanus/Diptheria 2016-08-11 Completed [facility] ity of 00:00:00 [facility] Varicella 2016-08-11 Completed [facility] (varivax)(chicken 00:00:00 [facility] Tetanus/Diptheria 2016-08-11 Completed [facility]y of 00:00:00 [facility] Varicella 2016-08-11 Completed [facility] (varivax)(chicken 00:00:00 [facility] Tetanus/Diptheria 2016-08-11 Completed [facility]y of 00:00:00 [facility] Varicella 2016-08-11 Completed University of (varivax)(chicken 00:00:00 [facility] Tetanus/Diptheria 2016-08-11 Completed Univers ity of 00:00:00 [facility] Varicella 2016-08-11 Completed [facility] (varivax)(chicken 00:00:00 [facility] Tetanus/Diptheria 2016-08-11 Completed [facility] of 00:00:00 [facility] Varicella 2016-08-11 Completed [facility] (varivax)(chicken 00:00:00 [facility] Tetanus/Diptheria 2016-08-11 Completed [facility] of 00:00:00 [facility] Varicella 2016-08-11 Completed [facility] (varivax)(chicken 00:00:00 [facility] Tetanus/Diptheria 2016-08-11 Completed [facility] of 00:00:00 [facility] Varicella 2016-08-11 Completed [facility] (varivax)(chicken 00:00:00 [facility] Tetanus/Diptheria 2016-08-11 Completed [facility] of 00:00:00 [facility] Varicella 2016-08-11 Completed [facility] (varivax)(chicken 00:00:00 [facility] Tetanus/Diptheria 2016-08-11 Completed [facility] of 00:00:00 [facility] Varicella 2016-08-11 Completed [facility] (varivax)(chicken 00:00:00 [facility] Tetanus/Diptheria 2016-08-11 Completed [facility] of 00:00:00 [facility] Varicella 2016-08-11 Completed [facility] (varivax)(chicken 00:00:00 [facility] Tetanus/Diptheria 2016-08-11 Completed [facility] of 00:00:00 [facility] Varicella 2016-08-11 Completed [facility] (varivax)(chicken 00:00:00 [facility] Tetanus/Diptheria 2016-08-11 Completed [facility] of 00:00:00 [facility] Varicella 2016-08-11 Completed [facility] (varivax)(chicken 00:00:00 [facility] Tetanus/Diptheria 2016-08-11 Completed [facility] of 00:00:00 [facility] Varicella 2016-08-11 Completed [facility] (varivax)(chicken 00:00:00 [facility] Tetanus/Diptheria 2016-08-11 Completed [facility] of 00:00:00 [facility] Varicella 2016-08-11 Completed [facility] (varivax)(chicken 00:00:00 [facility] Tetanus/Diptheria 2016-08-11 Completed [facility] of 00:00:00 [facility] Varicella 2016-08-11 Completed [facility] (varivax)(chicken 00:00:00 [facility] Tetanus/Diptheria 2016-08-11 Completed [facility] of 00:00:00 [facility] Varicella 2016-08-11 Completed [facility] (varivax)(chicken 00:00:00 [facility] Tetanus/Diptheria 2016-08-11 Completed [facility] 00:00:00 [facility] Varicella 2016-08-11 Completed [facility] (varivax)(chicken 00:00:00 [facility] Tetanus/Diptheria 2016-08-11 Completed [facility] of 00:00:00 [facility] Varicella 2016-08-11 Completed [facility] (varivax)(chicken 00:00:00 [facility] Tetanus/Diptheria 2016-08-11 Completed [facility] 00:00:00 [facility] Varicella 2016-08-11 Completed [facility] (varivax)(chicken 00:00:00 [facility] Tetanus/Diptheria 2016-08-11 Completed [facility] of 00:00:00 [facility] Varicella 2016-08-11 Completed [facility] (varivax)(chicken 00:00:00 [facility] Tetanus/Diptheria 2016-08-11 Completed [facility] of 00:00:00 [facility] Varicella 2016-08-11 Completed [facility] (varivax)(chicken 00:00:00 [facility] Tetanus/Diptheria 2016-08-11 Completed [facility] 00:00:00 [facility] Varicella 2016-08-11 Completed [facility] (varivax)(chicken 00:00:00 [facility] Tetanus/Diptheria 2016-08-11 Completed [facility] 00:00:00 [facility] Varicella 2016-08-11 Completed [facility] (varivax)(chicken 00:00:00 [facility] Tetanus/Diptheria 2016-08-11 Completed [facility] of 00:00:00 [facility] Varicella 2016-08-11 Completed [facility] of (varivax)(chicken 00:00:00 [...] HEPATITIS A 2008-09-27 Completed [facility] 00:00:00 [facility] HPV 2008-09-27 Completed [facility] of 00:00:00 [facility] HEPATITIS A 2008-09-27 Completed [facility] of 00:00:00 [facility] HPV 2008-09-27 Completed [facility] of 00:00:00 [facility] HEPATITIS A 2008-09-27 Completed [facility] 00:00:00 [facility] HPV 2008-09-27 Completed [facility] of 00:00:00 [facility] HEPATITIS A 2008-09-27 Completed [facility] 00:00:00 [facility] HPV 2008-09-27 Completed [facility] of 00:00:00 [facility] HEPATITIS A 2008-09-27 Completed [facility] of 00:00:00 [facility] HPV 2008-09-27 Completed [facility] of 00:00:00 [facility] HEPATITIS A 2008-09-27 Completed [facility] of 00:00:00 [facility] HPV 2008-09-27 Completed [facility] of 00:00:00 [facility] HEPATITIS A 2008-09-27 Completed [facility] 00:00:00 [facility] HPV 2008-09-27 Completed [facility] of 00:00:00 [facility] HEPATITIS A 2008-09-27 Completed [facility] of 00:00:00 [facility] HPV 2008-09-27 Completed [facility] of 00:00:00 [facility] HEPATITIS A 2008-09-27 Completed [facility] of 00:00:00 [facility] HPV 2008-09-27 Completed [facility] of 00:00:00 [facility] HEPATITIS A 2008-09-27 Completed [facility] of 00:00:00 [facility] HPV 2008-09-27 Completed [facility] of 00:00:00 [facility] HEPATITIS A 2008-09-27 Completed [facility] 00:00:00 [facility] HPV 2008-09-27 Completed [facility] of 00:00:00 [facility] HEPATITIS A 2008-09-27 Completed [facility] 00:00:00 [facility] HPV 2008-09-27 Completed [facility] of 00:00:00 [facility] HEPATITIS A 2008-09-27 Completed [facility] 00:00:00 [facility] HPV 2008-09-27 Completed [facility] of 00:00:00 [facility] HEPATITIS A 2008-09-27 Completed [facility] 00:00:00 [facility] HPV 2008-09-27 Completed [facility] of 00:00:00 [facility] HEPATITIS A 2008-09-27 Completed University of [...] HEPATITIS A 2008-03-06 Completed [facility] of 00:00:00 [facility] HPV 2008-03-06 Completed [facility] of 00:00:00 [facility] Meningococcal 2007-12-29 Completed [facility] Polysaccharide 00:00:00 [facility] (groups A, C, Y and Branc h W-135) conjugate vaccine (MCV4P) TDAP 2007-12-29 Completed [facility] of 00:00:00 [facility] Meningococcal 2007-12-29 Completed [facility] Polysaccharide 00:00:00 [facility] (groups A, C, Y and Branc h W-135) conjugate vaccine (MCV4P) TDAP 2007-12-29 Completed [facility] of 00:00:00 [facility] Meningococcal 2007-12-29 Completed [facility] Polysaccharide 00:00:00 [facility] (groups A, C, Y and Branc h W-135) conjugate vaccine (MCV4P) TDAP 2007-12-29 Completed [facility] of 00:00:00 [facility] Meningococcal 2007-12-29 Completed [facility] Polysaccharide 00:00:00 [facility] (groups A, C, Y and Branc h W-135) conjugate vaccine (MCV4P) TDAP 2007-12-29 Completed [facility] of 00:00:00 [facility] Meningococcal 2007-12-29 Completed [facility] Polysaccharide 00:00:00 [place] [facility] (groups A, C, Y and Branc h W-135) conjugate vaccine (MCV4P) TDAP 2007-12-29 Completed [facility] 00:00:00 [facility] Meningococcal 2007-12-29 Completed [facility] Polysaccharide 00:00:00 [place] [facility] (groups A, C, Y and Branc h W-135) conjugate vaccine (MCV4P) TDAP 2007-12-29 Completed [facility] 00:00:00 [facility] Meningococcal 2007-12-29 Completed [facility] Polysaccharide 00:00:00 [place] [facility] (groups A, C, Y and Branc h W-135) conjugate vaccine (MCV4P) TDAP 2007-12-29 Completed [facility] 00:00:00 [facility] Meningococcal 2007-12-29 Completed [facility] Polysaccharide 00:00:00 [place] [facility] (groups A, C, Y and Branc h W-135) conjugate vaccine (MCV4P) TDAP 2007-12-29 Completed [facility] 00:00:00 [facility] Meningococcal 2007-12-29 Completed [facility] Polysaccharide 00:00:00 [place] [facility] (groups A, C, Y and Branc h W-135) conjugate vaccine (MCV4P) TDAP 2007-12-29 Completed [facility] 00:00:00 [facility] Meningococcal 2007-12-29 Completed [facility] Polysaccharide 00:00:00 [place] [facility] (groups A, C, Y and Branc h W-135) conjugate vaccine (MCV4P) TDAP 2007-12-29 Completed [facility] 00:00:00 [facility] Meningococcal 2007-12-29 Completed [facility] Polysaccharide 00:00:00 [place] [facility] (groups A, C, Y and Branc h W-135) conjugate vaccine (MCV4P) TDAP 2007-12-29 Completed [facility] 00:00:00 [facility] Meningococcal 2007-12-29 Completed [facility] Polysaccharide 00:00:00 [place] [facility] (groups A, C, Y and Branc h W-135) conjugate vaccine (MCV4P) TDAP 2007-12-29 Completed [facility] 00:00:00 [facility] Meningococcal 2007-12-29 Completed [facility] Polysaccharide 00:00:00 [place] [facility] (groups A, C, Y and Branc h W-135) conjugate vaccine (MCV4P) TDAP 2007-12-29 Completed [facility] 00:00:00 [facility] Meningococcal 2007-12-29 Completed [facility] Polysaccharide 00:00:00 [place] [facility] (groups A, C, Y and Branc h W-135) conjugate vaccine (MCV4P) TDAP 2007-12-29 Completed [facility] 00:00:00 [facility] Meningococcal 2007-12-29 Completed [facility] Polysaccharide 00:00:00 [place] [facility] (groups A, C, Y and Branc h W-135) conjugate vaccine (MCV4P) TDAP 2007-12-29 Completed [facility] 00:00:00 [facility] Meningococcal 2007-12-29 Completed [facility] Polysaccharide 00:00:00 [place] [facility] (groups A, C, Y and Branc h W-135) conjugate vaccine (MCV4P) TDAP 2007-12-29 Completed [facility] 00:00:00 [facility] Meningococcal 2007-12-29 Completed [facility] Polysaccharide 00:00:00 [place] [facility] (groups A, C, Y and Branc h W-135) conjugate vaccine (MCV4P) TDAP 2007-12-29 Completed [facility] 00:00:00 [facility] Meningococcal 2007-12-29 Completed [facility] Polysaccharide 00:00:00 [place] [facility] (groups A, C, Y and Branc h W-135) conjugate vaccine (MCV4P) TDAP 2007-12-29 Completed [facility] 00:00:00 [facility] Meningococcal 2007-12-29 Completed [facility] Polysaccharide 00:00:00 [place] [facility] (groups A, C, Y and Branc h W-135) conjugate vaccine (MCV4P) TDAP 2007-12-29 Completed [facility] 00:00:00 [facility] Meningococcal 2007-12-29 Completed [facility] Polysaccharide 00:00:00 [place] [facility] (groups A, C, Y and Branc h W-135) conjugate vaccine (MCV4P) TDAP 2007-12-29 Completed [facility] 00:00:00 [facility] Meningococcal 2007-12-29 Completed [facility] Polysaccharide 00:00:00 [place] [facility] (groups A, C, Y and Branc h W-135) conjugate vaccine (MCV4P) TDAP 2007-12-29 Completed [facility] 00:00:00 [facility] Meningococcal 2007-12-29 Completed [facility] Polysaccharide 00:00:00 [place] [facility] (groups A, C, Y and Branc h W-135) conjugate vaccine (MCV4P) TDAP 2007-12-29 Completed [facility] 00:00:00 [facility] Meningococcal 2007-12-29 Completed [facility] Polysaccharide 00:00:00 [place] [facility] (groups A, C, Y and Branc h W-135) conjugate vaccine (MCV4P) TDAP 2007-12-29 Completed [facility] 00:00:00 [facility] Meningococcal 2007-12-29 Completed [facility] Polysaccharide 00:00:00 [place] [facility] (groups A, C, Y and Branc h W-135) conjugate vaccine (MCV4P) TDAP 2007-12-29 Completed [facility] 00:00:00 [facility] Meningococcal 2007-12-29 Completed [facility] Polysaccharide 00:00:00 [place] [facility] (groups A, C, Y and Branc h W-135) conjugate vaccine (MCV4P) TDAP 2007-12-29 Completed [facility] 00:00:00 [facility] Meningococcal 2007-12-29 Completed [facility] Polysaccharide 00:00:00 [place] [facility] (groups A, C, Y and Branc h W-135) conjugate vaccine (MCV4P) TDAP 2007-12-29 Completed [facility] 00:00:00 [facility] Meningococcal 2007-12-29 Completed [facility] Polysaccharide 00:00:00 [facility] shanice (groups A, C, Y and Branc h W-135) conjugate vaccine (MCV4P) TDAP 2007-12-29 Completed [facility] 00:00:00 [facility] Meningococcal 2007-12-29 Completed [facility] Polysaccharide 00:00:00 [facility] shanice (groups A, C, Y and Branc h W-135) conjugate vaccine (MCV4P) TDAP 2007-12-29 Completed [facility] 00:00:00 [facility] Meningococcal 2007-12-29 Completed [facility] Polysaccharide 00:00:00 [facility] shanice (groups A, C, Y and Branc h W-135) conjugate vaccine (MCV4P) TDAP 2007-12-29 Completed [facility] 00:00:00 [facility] DTaP, Unspecified 1998-01-03 Completed [facility] Formulation 00:00:00 [facility] Hep B, Adol or Pedi 1998-01-03 Completed [facility]ive rs[facility] of Dosage 00:00:00 [facility] Poliovirus, Live, 1998-01-03 Completed [facility] Oral, Trivalent 00:00:00 [facility] DTaP, Unspecified 1998-01-03 Completed [facility] Formulation 00:00:00 [facility] Hep B, Adol or Pedi 1998-01-03 Completed [facility] Dosage 00:00:00 [facility] Poliovirus, Live, 1998-01-03 Completed [facility] Oral, Trivalent 00:00:00 [facility] DTaP, Unspecified 1998-01-03 Completed [facility] Formulation 00:00:00 [facility] Hep B, Adol or Pedi 1998-01-03 Completed [facility] rs[facility] of Dosage 00:00:00 [facility] Poliovirus, Live, 1998-01-03 Completed [facility] of Oral, Trivalent 00:00:00 [facility] DTaP, Unspecified 1998-01-03 Completed [facility] Formulation 00:00:00 [facility] Hep B, Adol or Pedi 1998-01-03 Completed [facility] rs[facility] of Dosage 00:00:00 [facility] Poliovirus, Live, 1998-01-03 Completed [facility] Oral, Trivalent 00:00:00 [facility] DTaP, Unspecified 1998-01-03 Completed [facility] Formulation 00:00:00 [facility] Hep B, Adol or Pedi 1998-01-03 Completed [facility] rs[facility] of Dosage 00:00:00 [facility] Poliovirus, Live, 1998-01-03 Completed [facility] Oral, Trivalent 00:00:00 [facility] DTaP, Unspecified 1998-01-03 Completed [facility] Formulation 00:00:00 [facility] Hep B, Adol or Pedi 1998-01-03 Completed [facility]ive rs[facility] of Dosage 00:00:00 [facility] Poliovirus, Live, 1998-01-03 Completed [facility] of Oral, Trivalent 00:00:00 [facility] DTaP, Unspecified 1998-01-03 Completed [facility] Formulation 00:00:00 [facility] Hep B, Adol or Pedi 1998-01-03 Completed [facility] of Dosage 00:00:00 [facility] Poliovirus, Live, 1998-01-03 Completed [facility] of Oral, Trivalent 00:00:00 [facility] DTaP, Unspecified 1998-01-03 Completed [facility] Formulation 00:00:00 [facility] Hep B, Adol or Pedi 1998-01-03 Completed [facility]ive rs[facility] of Dosage 00:00:00 [facility] Poliovirus, Live, 1998-01-03 Completed [facility] Oral, Trivalent 00:00:00 [facility] DTaP, Unspecified 1998-01-03 Completed [facility] Formulation 00:00:00 [facility] Hep B, Adol or Pedi 1998-01-03 Completed [facility] rs[facility] of Dosage 00:00:00 [facility] Poliovirus, Live, 1998-01-03 Completed [facility] Oral, Trivalent 00:00:00 [facility] DTaP, Unspecified 1998-01-03 Completed [facility] Formulation 00:00:00 [facility] Hep B, Adol or Pedi 1998-01-03 Completed [facility] rs[facility] of Dosage 00:00:00 [facility] Poliovirus, Live, 1998-01-03 Completed [facility] of Oral, Trivalent 00:00:00 [facility] DTaP, Unspecified 1998-01-03 Completed [facility] Formulation 00:00:00 [facility] Hep B, Adol or Pedi 1998-01-03 Completed [facility]ive rs[facility] of Dosage 00:00:00 [facility] Poliovirus, Live, 1998-01-03 Completed [facility] Oral, Trivalent 00:00:00 [facility] DTaP, Unspecified 1998-01-03 Completed [facility] Formulation 00:00:00 [facility] Hep B, Adol or Pedi 1998-01-03 Completed [facility] rs[facility] of Dosage 00:00:00 [facility] Poliovirus, Live, 1998-01-03 Completed [facility] Oral, Trivalent 00:00:00 [facility] DTaP, Unspecified 1998-01-03 Completed [facility] of Formulation 00:00:00 [facility] Hep B, Adol or Pedi 1998-01-03 Completed [facility]ive rs[facility] of Dosage 00:00:00 [facility] Poliovirus, Live, 1998-01-03 Completed [facility] of Oral, Trivalent 00:00:00 [facility] DTaP, Unspecified 1998-01-03 Completed [facility] of Formulation 00:00:00 [facility] Hep B, Adol or Pedi 1998-01-03 Completed [facility] rs[facility] of Dosage 00:00:00 [facility] Poliovirus, Live, 1998-01-03 Completed [facility] Oral, Trivalent 00:00:00 [facility] DTaP, Unspecified 1998-01-03 Completed [facility] Formulation 00:00:00 [facility] Hep B, Adol or Pedi 1998-01-03 Completed [facility]ive rs[facility] of Dosage 00:00:00 [facility] Poliovirus, Live, 1998-01-03 Completed [facility] of Oral, Trivalent 00:00:00 [facility] DTaP, Unspecified 1998-01-03 Completed [facility] Formulation 00:00:00 [facility] Hep B, Adol or Pedi 1998-01-03 Completed [facility] rs[facility] of Dosage 00:00:00 [facility] Poliovirus, Live, 1998-01-03 Completed [facility] Oral, Trivalent 00:00:00 [place] [facility] DTaP, Unspecified 1998-01-03 Completed [facility] Formulation 00:00:00 [facility] Hep B, Adol or Pedi 1998-01-03 Completed [facility] of Dosage 00:00:00 [facility] Poliovirus, Live, 1998-01-03 Completed [facility] Oral, Trivalent 00:00:00 [facility] DTaP, Unspecified 1998-01-03 Completed [facility] Formulation 00:00:00 [facility] Hep B, Adol or Pedi 1998-01-03 Completed [facility]ive rs[facility] of Dosage 00:00:00 [facility] Poliovirus, Live, 1998-01-03 Completed [facility] of Oral, Trivalent 00:00:00 [facility] DTaP, Unspecified 1998-01-03 Completed [facility] Formulation 00:00:00 [facility] Hep B, Adol or Pedi 1998-01-03 Completed [facility] rs[facility] of Dosage 00:00:00 [facility] Poliovirus, Live, 1998-01-03 Completed [facility] of Oral, Trivalent 00:00:00 [facility] DTaP, Unspecified 1998-01-03 Completed [facility] Formulation 00:00:00 [facility] Hep B, Adol or Pedi 1998-01-03 Completed [facility]ive rs[facility] of Dosage 00:00:00 [facility] Poliovirus, Live, 1998-01-03 Completed [facility] of Oral, Trivalent 00:00:00 [facility] DTaP, Unspecified 1998-01-03 Completed [facility] of Formulation 00:00:00 [facility] Hep B, Adol or Pedi 1998-01-03 Completed [facility] rs[facility] of Dosage 00:00:00 [facility] Poliovirus, Live, 1998-01-03 Completed [facility] of Oral, Trivalent 00:00:00 [facility] DTaP, Unspecified 1998-01-03 Completed [facility] Formulation 00:00:00 [facility] Hep B, Adol or Pedi 1998-01-03 Completed [facility]ive rs[facility] of Dosage 00:00:00 [facility] Poliovirus, Live, 1998-01-03 Completed [facility] Oral, Trivalent 00:00:00 [facility] DTaP, Unspecified 1998-01-03 Completed [facility] Formulation 00:00:00 [facility] Hep B, Adol or Pedi 1998-01-03 Completed [facility]ive rs[facility] of Dosage 00:00:00 [facility] Poliovirus, Live, 1998-01-03 Completed [facility] Oral, Trivalent 00:00:00 [facility] DTaP, Unspecified 1998-01-03 Completed [facility] Formulation 00:00:00 [facility] Hep B, Adol or Pedi 1998-01-03 Completed [facility]ive rs[facility] of Dosage 00:00:00 [facility] Poliovirus, Live, 1998-01-03 Completed [facility] Oral, Trivalent 00:00:00 [facility] DTaP, Unspecified 1998-01-03 Completed [facility] Formulation 00:00:00 [facility] Hep B, Adol or Pedi 1998-01-03 Completed [facility] rs[facility] of Dosage 00:00:00 [facility] Poliovirus, Live, 1998-01-03 Completed [facility] Oral, Trivalent 00:00:00 [facility] DTaP, Unspecified 1998-01-03 Completed [facility] Formulation 00:00:00 [facility] Hep B, Adol or Pedi 1998-01-03 Completed [facility] rs[facility] of Dosage 00:00:00 [facility] Poliovirus, Live, 1998-01-03 Completed [facility] Oral, Trivalent 00:00:00 [facility] DTaP, Unspecified 1998-01-03 Completed [facility] Formulation 00:00:00 [facility] Hep B, Adol or Pedi 1998-01-03 Completed [facility] of Dosage 00:00:00 [facility] Poliovirus, Live, 1998-01-03 Completed [facility] Oral, Trivalent 00:00:00 [facility] DTaP, Unspecified 1998-01-03 Completed [facility] Formulation 00:00:00 [facility] Hep B, Adol or Pedi 1998-01-03 Completed [facility] rs[facility] of Dosage 00:00:00 [facility] Poliovirus, Live, 1998-01-03 Completed [facility] Oral, Trivalent 00:00:00 [facility] DTaP, Unspecified 1998-01-03 Completed [facility] Formulation 00:00:00 [facility] Hep B, Adol or Pedi 1998-01-03 Completed [facility] of Dosage 00:00:00 [facility] Poliovirus, Live, 1998-01-03 Completed [facility] Oral, Trivalent 00:00:00 [facility] Hep B, Unspecified 1997-03-28 Completed Univer [facility] of Formulation 00:00:00 [facility] Hep B, Adol or Pedi 1997-03-28 Completed Unive rsity of Dosage 00:00:00 [facility] MMR 1997-03-28 Completed [facility] 00:00:00 [facility] Hep B, Unspecified 1997-03-28 Completed [facility] of Formulation 00:00:00 [facility] Hep B, Adol or Pedi 1997-03-28 Completed [facility]ive rsity of Dosage 00:00:00 [facility] MMR 1997-03-28 Completed [facility] 00:00:00 [facility] Hep B, Unspecified 1997-03-28 Completed [facility] of Formulation 00:00:00 [facility] Hep B, Adol or Pedi 1997-03-28 Completed [facility] rsity of Dosage 00:00:00 [facility] MMR 1997-03-28 Completed [facility] 00:00:00 [facility] Hep B, Unspecified 1997-03-28 Completed [facility]iver [facility]ity of Formulation 00:00:00 [facility] Hep B, Adol or Pedi 1997-03-28 Completed [facility]ive rsity of Dosage 00:00:00 [facility] MMR 1997-03-28 Completed [facility] 00:00:00 [facility] Hep B, Unspecified 1997-03-28 Completed Univer [facility]ity of Formulation 00:00:00 [facility] Hep B, Adol or Pedi 1997-03-28 Completed [facility]ive rsity of Dosage 00:00:00 [facility] MMR 1997-03-28 Completed [facility] 00:00:00 [facility] Hep B, Unspecified 1997-03-28 Completed Univer [facility]ity of Formulation 00:00:00 [facility] Hep B, Adol or Pedi 1997-03-28 Completed [facility] rs[facility] of Dosage 00:00:00 [facility] MMR 1997-03-28 Completed [facility] 00:00:00 [facility] Hep B, Unspecified 1997-03-28 Completed [facility] of Formulation 00:00:00 [facility] Hep B, Adol or Pedi 1997-03-28 Completed [facility]ive rs[facility] of Dosage 00:00:00 [facility] MMR 1997-03-28 Completed [facility] 00:00:00 [facility] Hep B, Unspecified 1997-03-28 Completed [facility] of Formulation 00:00:00 [facility] Hep B, Adol or Pedi 1997-03-28 Completed [facility] rs[facility] of Dosage 00:00:00 [facility] MMR 1997-03-28 Completed [facility] 00:00:00 [facility] Hep B, Unspecified 1997-03-28 Completed [facility] of Formulation 00:00:00 [facility] Hep B, Adol or Pedi 1997-03-28 Completed [facility] rs[facility] of Dosage 00:00:00 [facility] MMR 1997-03-28 Completed [facility] 00:00:00 [facility] Hep B, Unspecified 1997-03-28 Completed [facility] of Formulation 00:00:00 [facility] Hep B, Adol or Pedi 1997-03-28 Completed [facility] of Dosage 00:00:00 [facility] MMR 1997-03-28 Completed [facility] 00:00:00 [facility] Hep B, Unspecified 1997-03-28 Completed [facility] of Formulation 00:00:00 [facility] Hep B, Adol or Pedi 1997-03-28 Completed [facility] of Dosage 00:00:00 [facility] MMR 1997-03-28 Completed [facility] 00:00:00 [facility] Hep B, Unspecified 1997-03-28 Completed [facility] of Formulation 00:00:00 [facility] Hep B, Adol or Pedi 1997-03-28 Completed [facility] of Dosage 00:00:00 [facility] MMR 1997-03-28 Completed [facility] 00:00:00 [facility] Hep B, Unspecified 1997-03-28 Completed [facility] of Formulation 00:00:00 [facility] Hep B, Adol or Pedi 1997-03-28 Completed [facility] of Dosage 00:00:00 [facility] MMR 1997-03-28 Completed [facility] 00:00:00 [facility] Hep B, Unspecified 1997-03-28 Completed [facility] of Formulation 00:00:00 [facility] Hep B, Adol or Pedi 1997-03-28 Completed [facility] rs[facility] of Dosage 00:00:00 [facility] MMR 1997-03-28 Completed [facility] 00:00:00 [facility] Hep B, Unspecified 1997-03-28 Completed [facility] of Formulation 00:00:00 [facility] Hep B, Adol or Pedi 1997-03-28 Completed [facility] of Dosage 00:00:00 [facility] MMR 1997-03-28 Completed [facility] 00:00:00 [facility] Hep B, Unspecified 1997-03-28 Completed [facility] of Formulation 00:00:00 [facility] Hep B, Adol or Pedi 1997-03-28 Completed [facility] rs[facility] of Dosage 00:00:00 [facility] MMR 1997-03-28 Completed [facility] 00:00:00 [facility] Hep B, Unspecified 1997-03-28 Completed [facility] of Formulation 00:00:00 [facility] Hep B, Adol or Pedi 1997-03-28 Completed [facility] rs[facility] of Dosage 00:00:00 [facility] MMR 1997-03-28 Completed [facility] 00:00:00 [facility] Hep B, Unspecified 1997-03-28 Completed [facility] of Formulation 00:00:00 [facility] Hep B, Adol or Pedi 1997-03-28 Completed [facility] of Dosage 00:00:00 [facility] MMR 1997-03-28 Completed [facility] 00:00:00 [facility] Hep B, Unspecified 1997-03-28 Completed [facility] of Formulation 00:00:00 [facility] Hep B, Adol or Pedi 1997-03-28 Completed [facility] of Dosage 00:00:00 [facility] MMR 1997-03-28 Completed [facility] 00:00:00 [facility] Hep B, Unspecified 1997-03-28 Completed [facility] of Formulation 00:00:00 [facility] Hep B, Adol or Pedi 1997-03-28 Completed [facility] of Dosage 00:00:00 [facility] MMR 1997-03-28 Completed [facility] 00:00:00 [facility] Hep B, Unspecified 1997-03-28 Completed [facility] of Formulation 00:00:00 [facility] Hep B, Adol or Pedi 1997-03-28 Completed [facility] of Dosage 00:00:00 [facility] MMR 1997-03-28 Completed [facility] 00:00:00 [facility] Hep B, Unspecified 1997-03-28 Completed [facility]ity of Formulation 00:00:00 [facility] Hep B, Adol or Pedi 1997-03-28 Completed [facility] rs[facility] of Dosage 00:00:00 [facility] MMR 1997-03-28 Completed [facility] 00:00:00 [facility] Hep B, Unspecified 1997-03-28 Completed [facility] of Formulation 00:00:00 [facility] Hep B, Adol or Pedi 1997-03-28 Completed [facility] rs[facility] of Dosage 00:00:00 [facility] MMR 1997-03-28 Completed [facility] 00:00:00 [facility] Hep B, Unspecified 1997-03-28 Completed [facility] of Formulation 00:00:00 [facility] Hep B, Adol or Pedi 1997-03-28 Completed [facility] rs[facility] of Dosage 00:00:00 [facility] MMR 1997-03-28 Completed [facility] 00:00:00 [facility] Hep B, Unspecified 1997-03-28 Completed [facility] of Formulation 00:00:00 [facility] Hep B, Adol or Pedi 1997-03-28 Completed [facility] rs[facility] of Dosage 00:00:00 [facility] MMR 1997-03-28 Completed [facility] 00:00:00 [facility] Hep B, Unspecified 1997-03-28 Completed [facility] of Formulation 00:00:00 [facility] Hep B, Adol or Pedi 1997-03-28 Completed [facility] rs[facility] of Dosage 00:00:00 [facility] MMR 1997-03-28 Completed [facility] 00:00:00 [facility] Hep B, Unspecified 1997-03-28 Completed [facility] of Formulation 00:00:00 [facility] Hep B, Adol or Pedi 1997-03-28 Completed [facility] rs[facility] of Dosage 00:00:00 [facility] MMR 1997-03-28 Completed [facility] 00:00:00 [facility] Hep B, Unspecified 1997-03-28 Completed [facility] of Formulation 00:00:00 [facility] Hep B, Adol or Pedi 1997-03-28 Completed [facility] rs[facility] of Dosage 00:00:[address] [facility] 1997-03-28 Completed [facility] 00:00:00 [facility] Hep B, Unspecified 1997-03-28 Completed Univer [facility]ity of Formulation 00:00:00 [facility] Hep B, Adol or Pedi 1997-03-28 Completed [facility] rs[facility] of Dosage 00:00:[address] [facility] 1997-03-28 Completed [facility] 00:00:00 [facility] 1994-05-19 Completed [facility] 00:00:00 [facility] Hib-HbOC 1994-05-19 Completed [facility] of 00:00:[address] [facility] 1994-05-19 Completed [facility] 00:00:00 [facility] Poliovirus, Live, 1994-05-19 Completed Univers [facility] of Oral, Trivalent 00:00:00 [facility] 1994-05-19 Completed [facility] 00:00:00 [facility] Hib-HbOC 1994-05-19 Completed [facility] 00:00:[address] [facility] 1994-05-19 Completed [facility] 00:00:00 [facility] Poliovirus, Live, 1994-05-19 Completed Univers [facility]y of Oral, Trivalent 00:00:00 [facility] 1994-05-19 Completed [facility] 00:00:00 [facility] Hib-HbOC 1994-05-19 Completed [facility] 00:00:[address] [facility] 1994-05-19 Completed [facility] 00:00:00 [facility] Poliovirus, Live, 1994-05-19 Completed [facility]y of Oral, Trivalent 00:00:00 [facility] 1994-05-19 Completed [facility] 00:00:00 [facility] Hib-HbOC 1994-05-19 Completed [facility] 00:00:[address] [facility] 1994-05-19 Completed [facility] 00:00:00 [facility] Poliovirus, Live, 1994-05-19 Completed [facility] of Oral, Trivalent 00:00:00 [facility] 1994-05-19 Completed [facility] 00:00:00 [facility] Hib-HbOC 1994-05-19 Completed [facility] 00:00:[address] [facility] 1994-05-19 Completed [facility] 00:00:00 [facility] Poliovirus, Live, 1994-05-19 Completed [facility] of Oral, Trivalent 00:00:00 [facility] 1994-05-19 Completed [facility] 00:00:00 [facility] Hib-HbOC 1994-05-19 Completed [facility] 00:00:00 [facility] MMR 1994-05-19 Completed [facility] 00:00:00 [facility] Poliovirus, Live, 1994-05-19 Completed [facility] of Oral, Trivalent 00:00:00 [facility] 1994-05-19 Completed [facility] 00:00:00 [facility] Hib-HbOC 1994-05-19 Completed [facility] 00:00:00 [facility] MMR 1994-05-19 Completed [facility] 00:00:00 [facility] Poliovirus, Live, 1994-05-19 Completed [facility] Oral, Trivalent 00:00:00 [facility] 1994-05-19 Completed [facility] 00:00:00 [facility] Hib-HbOC 1994-05-19 Completed [facility] 00:00:00 [facility] MMR 1994-05-19 Completed [facility] 00:00:00 [facility] Poliovirus, Live, 1994-05-19 Completed [facility] Oral, Trivalent 00:00:00 [facility] 1994-05-19 Completed [facility] 00:00:00 [facility] Hib-HbOC 1994-05-19 Completed [facility] 00:00:00 [facility] MMR 1994-05-19 Completed [facility] 00:00:00 [facility] Poliovirus, Live, 1994-05-19 Completed [facility] it[facility] of Oral, Trivalent 00:00:00 [facility] 1994-05-19 Completed [facility] 00:00:00 [facility] Hib-HbOC 1994-05-19 Completed [facility] 00:00:00 [facility] MMR 1994-05-19 Completed [facility] 00:00:00 [facility] Poliovirus, Live, 1994-05-19 Completed [facility] Oral, Trivalent 00:00:00 [facility] 1994-05-19 Completed [facility] 00:00:00 [facility] Hib-HbOC 1994-05-19 Completed [facility] 00:00:00 [facility] MMR 1994-05-19 Completed [facility] 00:00:00 [facility] Poliovirus, Live, 1994-05-19 Completed [facility] of Oral, Trivalent 00:00:00 [facility] 1994-05-19 Completed [facility] 00:00:00 [facility] Hib-HbOC 1994-05-19 Completed [facility] 00:00:00 [facility] MMR 1994-05-19 Completed [facility] 00:00:00 [facility] Poliovirus, Live, 1994-05-19 Completed [facility] ity of Oral, Trivalent 00:00:00 [facility] 1994-05-19 Completed [facility] 00:00:00 [facility] Hib-HbOC 1994-05-19 Completed [facility] 00:00:[address] [facility] 1994-05-19 Completed [facility] 00:00:00 [facility] Poliovirus, Live, 1994-05-19 Completed [facility] ity of Oral, Trivalent 00:00:00 [facility] 1994-05-19 Completed [facility] 00:00:00 [facility] Hib-HbOC 1994-05-19 Completed [facility] 00:00:[address] [facility] 1994-05-19 Completed [facility] 00:00:00 [facility] Poliovirus, Live, 1994-05-19 Completed [facility] it[facility] of Oral, Trivalent 00:00:00 [facility] 1994-05-19 Completed [facility] 00:00:00 [facility] Hib-HbOC 1994-05-19 Completed [facility] 00:00:[address] [facility] 1994-05-19 Completed [facility] 00:00:00 [facility] Poliovirus, Live, 1994-05-19 Completed [facility] ity of Oral, Trivalent 00:00:00 [facility] 1994-05-19 Completed [facility] 00:00:00 [facility] Hib-HbOC 1994-05-19 Completed [facility] 00:00:00 [facility] MMR 1994-05-19 Completed [facility] 00:00:00 [facility] Poliovirus, Live, 1994-05-19 Completed [facility] it[facility] of Oral, Trivalent 00:00:00 [facility] 1994-05-19 Completed [facility] 00:00:00 [facility] Hib-HbOC 1994-05-19 Completed [facility] 00:00:00 [facility] MMR 1994-05-19 Completed [facility] 00:00:00 [facility] Poliovirus, Live, 1994-05-19 Completed [facility] of Oral, Trivalent 00:00:00 [facility] 1994-05-19 Completed [facility] 00:00:00 [facility] Hib-HbOC 1994-05-19 Completed [facility] 00:00:00 [facility] MMR 1994-05-19 Completed [facility] 00:00:00 [facility] Poliovirus, Live, 1994-05-19 Completed [facility] of Oral, Trivalent 00:00:00 [facility] 1994-05-19 Completed [facility] 00:00:00 [facility] Hib-HbOC 1994-05-19 Completed [facility] 00:00:00 [facility] MMR 1994-05-19 Completed [facility] 00:00:00 [facility] Poliovirus, Live, 1994-05-19 Completed [facility] ity of Oral, Trivalent 00:00:00 [facility] 1994-05-19 Completed [facility] 00:00:00 [facility] Hib-HbOC 1994-05-19 Completed [facility] 00:00:00 [facility] MMR 1994-05-19 Completed [facility] 00:00:00 [facility] Poliovirus, Live, 1994-05-19 Completed [facility] of Oral, Trivalent 00:00:00 [facility] 1994-05-19 Completed [facility] 00:00:00 [facility] Hib-HbOC 1994-05-19 Completed [facility] 00:00:00 [facility] MMR 1994-05-19 Completed [facility] 00:00:00 [facility] Poliovirus, Live, 1994-05-19 Completed [facility] it[facility] of Oral, Trivalent 00:00:00 [facility] 1994-05-19 Completed [facility] 00:00:00 [facility] Hib-HbOC 1994-05-19 Completed [facility] 00:00:00 [facility] MMR 1994-05-19 Completed [facility] 00:00:00 [facility] Poliovirus, Live, 1994-05-19 Completed [facility]y of Oral, Trivalent 00:00:00 [facility] 1994-05-19 Completed [facility] 00:00:00 [facility] Hib-HbOC 1994-05-19 Completed [facility] 00:00:00 [facility] MMR 1994-05-19 Completed [facility] 00:00:00 [facility] Poliovirus, Live, 1994-05-19 Completed [facility] it[facility] of Oral, Trivalent 00:00:00 [facility] 1994-05-19 Completed [facility] 00:00:00 [facility] Hib-HbOC 1994-05-19 Completed [facility] 00:00:00 [facility] MMR 1994-05-19 Completed [facility] 00:00:00 [facility] Poliovirus, Live, 1994-05-19 Completed [facility] Oral, Trivalent 00:00:00 [facility] 1994-05-19 Completed [facility] 00:00:00 [facility] Hib-HbOC 1994-05-19 Completed [facility] 00:00:00 [facility] MMR 1994-05-19 Completed [facility] 00:00:00 [facility] Poliovirus, Live, 1994-05-19 Completed [facility] it[facility] of Oral, Trivalent 00:00:00 [facility] 1994-05-19 Completed [facility] 00:00:00 [facility] Hib-HbOC 1994-05-19 Completed [facility] 00:00:[address] [facility] 1994-05-19 Completed [facility] 00:00:00 [facility] Poliovirus, Live, 1994-05-19 Completed [facility] ity of Oral, Trivalent 00:00:00 [facility] 1994-05-19 Completed [facility] 00:00:00 [facility] Hib-HbOC 1994-05-19 Completed [facility] 00:00:00 [facility] MMR 1994-05-19 Completed [facility] 00:00:00 [facility] Poliovirus, Live, 1994-05-19 Completed [facility] it[facility] Oral, Trivalent 00:00:00 [facility] 1994-05-19 Completed [facility] 00:00:00 [facility] Hib-HbOC 1994-05-19 Completed [facility] 00:00:00 [facility] MMR 1994-05-19 Completed [facility] 00:00:00 [facility] Poliovirus, Live, 1994-05-19 Completed [facility] of Oral, Trivalent 00:00:00 [facility] 1994-05-19 Completed [facility] 00:00:00 [facility] Hib-HbOC 1994-05-19 Completed [facility] 00:00:00 [facility] MMR 1994-05-19 Completed [facility] 00:00:00 [facility] Poliovirus, Live, 1994-05-19 Completed [facility] Oral, Trivalent 00:00:00 [facility] 1994-05-09 Completed [facility] of Influenza B 00:00:00 [facility] 1994-05-09 Completed [facility] of Influenza B 00:00:00 [facility] 1994-05-09 Completed [facility] of Influenza B 00:00:00 [facility] 1994-05-09 Completed [facility] of Influenza B 00:00:00 [facility] 1994-05-09 Completed [facility] of Influenza B 00:00:00 [facility] 1994-05-09 Completed [facility] of Influenza B 00:00:00 [facility] 1994-05-09 Completed [facility] of Influenza B 00:00:00 [facility] 1994-05-09 Completed [facility] of Influenza B 00:00:00 [facility] 1994-05-09 Completed [facility] of Influenza B 00:00:00 [facility] 1994-05-09 Completed [facility] of Influenza B 00:00:00 [facility] 1994-05-09 Completed [facility] of Influenza B 00:00:00 [facility] 1994-05-09 Completed [facility] of Influenza B 00:00:00 [facility] 1994-05-09 Completed [facility] Influenza B 00:00:00 [facility] 1994-05-09 Completed [facility] Influenza B 00:00:00 [facility] 1994-05-09 Completed [facility] Influenza B 00:00:00 [facility] 1994-05-09 Completed [facility] Influenza B 00:00:00 [facility] 1994-05-09 Completed [facility] of Influenza B 00:00:00 [facility] 1994-05-09 Completed [facility] of Influenza B 00:00:00 [facility] 1994-05-09 Completed [facility] of Influenza B 00:00:00 [facility] 1994-05-09 Completed [facility] of Influenza B 00:00:00 [facility] 1994-05-09 Completed [facility] Influenza B 00:00:00 [facility] 1994-05-09 Completed [facility] of Influenza B 00:00:00 [facility] 1994-05-09 Completed [facility] Influenza B 00[facility]00:00 [facility] 1994-05-09 Completed [facility] Influenza B 00:00:00 [facility] 1994-05-09 Completed [facility] Influenza B 00:00:00 [facility] 1994-05-09 Completed [facility] Influenza B 00:00:00 [facility] 1994-05-09 Completed [facility] Influenza B 00:00:00 [facility] 1994-05-09 Completed [facility] Influenza B 00:00:00 [facility] Hep B, Unspecified 1993-04-29 Completed Univer sity of Formulation 00:00:00 [facility] Hep B, Adol or Pedi 1993-04-29 Completed Unive rsity of Dosage 00:00:00 [facility] Hep B, Unspecified 1993-04-29 Completed [facility]iver [facility] of Formulation 00:00:00 [facility] Hep B, Adol or Pedi 1993-04-29 Completed Unive rsity of Dosage 00:00:00 [facility] Hep B, Unspecified 1993-04-29 Completed [facility]iver [facility] of Formulation 00:00:00 [facility] Hep B, Adol or Pedi 1993-04-29 Completed Unive rsity of Dosage 00:00:00 [facility] Hep B, Unspecified 1993-04-29 Completed [facility]iver s[facility] of Formulation 00:00:00 [facility] Hep B, Adol or Pedi 1993-04-29 Completed Unive rsity of Dosage 00:00:00 [facility] Hep B, Unspecified 1993-04-29 Completed [facility]iver [facility] of Formulation 00:00:00 [facility] Hep B, Adol or Pedi 1993-04-29 Completed Unive rsity of Dosage 00:00:00 [facility] Hep B, Unspecified 1993-04-29 Completed [facility] of Formulation 00:00:00 [facility] Hep B, Adol or Pedi 1993-04-29 Completed Unive rsity of Dosage 00:00:00 [facility] Hep B, Unspecified 1993-04-29 Completed [facility] Formulation 00:00:00 [facility] Hep B, Adol or Pedi [...] 1993-04-29 Completed Unive rsity of Dosage 00:00:00 [facility] Hep B, Unspecified 1993-04-29 Completed [facility] of Formulation 00:00:00 [facility] Hep B, Adol or Pedi 1993-04-29 Completed [facility]ive rsity of Dosage 00:00:00 [facility] Hep B, Unspecified 1993-04-29 Completed [facility] of Formulation 00:00:00 [facility] Hep B, Adol or Pedi 1993-04-29 Completed Unive rsity of Dosage 00:00:00 [facility] Hep B, Unspecified 1993-04-29 Completed [facility] of Formulation 00:00:00 [facility] Hep B, Adol or Pedi 1993-04-29 Completed Unive rsity of Dosage 00:00:00 [facility] DTP 1992 Completed [facility] 00:00:00 [facility] Heamophilus 1992 Completed [facility] of Influenza B 00:00:00 [facility] Hib-HbOC 1992 Completed [facility] 00:00:00 [facility] DTP 1992 Completed [facility] 00:00:00 [facility] Heamophilus 1992 Completed [facility] of Influenza B 00:00:00 [facility] Hib-HbOC 1992 Completed [facility] 00:00:00 [facility] DTP 1992 Completed [facility] 00:00:00 [facility] Heamophilus 1992 Completed [facility] of Influenza B 00:00:00 [facility] Hib-HbOC 1992 Completed [facility] 00:00:00 [facility] DTP 1992 Completed [facility] 00:00:00 [facility] Heamophilus 1992 Completed [facility] of Influenza B 00:00:00 [facility] Hib-HbOC 1992 Completed [facility] 00:00:00 [facility] DTP 1992 Completed [facility] 00:00:00 [facility] Heamophilus 1992 Completed [facility] of Influenza B 00:00:00 [facility] Hib-HbOC 1992 Completed [facility] 00:00:00 [facility] DTP 1992 Completed [facility] 00:00:00 [facility] Heamophilus 1992 Completed [facility] of Influenza B 00:00:00 [facility] Hib-HbOC 1992 Completed [facility] 00:00:00 [facility] DTP 1992 Completed [facility] 00:00:00 [facility] Heamophilus 1992 Completed [facility] of Influenza B 00:00:00 [facility] Hib-HbOC 1992 Completed [facility] 00:00:00 [facility] DTP 1992 Completed [facility] 00:00:00 [facility] Heamophilus 1992 Completed [facility] of Influenza B 00:00:00 [facility] Hib-HbOC 1992 Completed [facility] 00:00:00 [facility] DTP 1992 Completed [facility] 00:00:00 [facility] Heamophilus 1992 Completed [facility] of Influenza B 00:00:00 [facility] Hib-HbOC 1992 Completed [facility] 00:00:00 [facility] DTP 1992 Completed [facility] 00:00:00 [facility] Heamophilus 1992 Completed [facility] of Influenza B 00:00:00 [facility] Hib-HbOC 1992 Completed [facility] 00:00:00 [facility] DTP 1992 Completed [facility] 00:00:00 [facility] Heamophilus 1992 Completed [facility] of Influenza B 00:00:00 [facility] Hib-HbOC 1992 Completed [facility] 00:00:00 [facility] DTP 1992 Completed [facility] 00:00:00 [facility] Heamophilus 1992 Completed [facility] of Influenza B 00:00:00 [facility] Hib-HbOC 1992 Completed [facility] 00:00:00 [facility] DTP 1992 Completed [facility] 00:00:00 [facility] Heamophilus 1992 Completed [facility] of Influenza B 00:00:00 [facility] Hib-HbOC 1992 Completed [facility] 00:00:00 [facility] DTP 1992 Completed [facility] 00:00:00 [facility] Heamophilus 1992 Completed [facility] of Influenza B 00:00:00 [facility] Hib-HbOC 1992 Completed [facility] 00:00:00 [facility] DTP 1992 Completed [facility] 00:00:00 [facility] Heamophilus 1992 Completed [facility] of Influenza B 00:00:00 [facility] Hib-HbOC 1992 Completed [facility] 00:00:00 [facility] DTP 1992 Completed [facility] 00:00:00 [facility] Heamophilus 1992 Completed [facility] of Influenza B 00:00:00 [facility] Hib-HbOC 1992 Completed [facility] 00:00:00 [facility] DTP 1992 Completed [facility] 00:00:00 [facility] Heamophilus 1992 Completed [facility] of Influenza B 00:00:00 [facility] Hib-HbOC 1992 Completed [facility] 00:00:00 [facility] DTP 1992 Completed [facility] of 00:00:00 [facility] Heamophilus 1992 Completed [facility] of Influenza B 00:00:00 [facility] Hib-HbOC 1992 Completed [facility] 00:00:00 [facility] DTP 1992 Completed [facility] 00:00:00 [facility] Heamophilus 1992 Completed [facility] of Influenza B 00:00:00 [facility] Hib-HbOC 1992 Completed [facility] 00:00:00 [facility] DTP 1992 Completed [facility] 00:00:00 [facility] Heamophilus 1992 Completed [facility] of Influenza B 00:00:00 [facility] Hib-HbOC 1992 Completed [facility] 00:00:00 [facility] DTP 1992 Completed [facility] 00:00:00 [facility] Heamophilus 1992 Completed [facility] of Influenza B 00:00:00 [facility] Hib-HbOC 1992 Completed [facility] of 00:00:00 [facility] DTP 1992 Completed [facility] 00:00:00 [facility] Heamophilus 1992 Completed [facility] of Influenza B 00:00:00 [facility] Hib-HbOC 1992 Completed [facility] of 00:00:00 [facility] DTP 1992 Completed [facility] 00:00:00 [facility] Heamophilus 1992 Completed [facility] of Influenza B 00:00:00 [facility] Hib-HbOC 1992 Completed [facility] 00:00:00 [facility] DTP 1992 Completed [facility] 00:00:00 [facility] Heamophilus 1992 Completed [facility] of Influenza B 00:00:00 [facility] Hib-HbOC 1992 Completed [facility] 00:00:00 [facility] DTP 1992 Completed [facility] 00:00:00 [facility] Heamophilus 1992 Completed [facility] of Influenza B 00:00:00 [facility] Hib-HbOC 1992 Completed [facility] of 00:00:00 [facility] DTP 1992 Completed [facility] of 00:00:00 [facility] Heamophilus 1992 Completed [facility] of Influenza B 00:00:00 [facility] Hib-HbOC 1992 Completed [facility] of 00:00:00 [facility] DTP 1992 Completed [facility] 00:00:00 [facility] Heamophilus 1992 Completed [facility] of Influenza B 00:00:00 [facility] Hib-HbOC 1992 Completed [facility] of 00:00:00 [facility] DTP 1992 Completed [facility] 00:00:00 [facility] Heamophilus 1992 Completed [facility] of Influenza B 00:00:00 [facility] Hib-HbOC 1992 Completed [facility] 00:00:00 [facility] DTP 1992 Completed [facility] 00:00:00 [facility] Heamophilus 1992 Completed [facility] of Influenza B 00:00:00 [facility] Hib-HbOC 1992 Completed [facility] 00:00:00 [facility] DTP 1992 Completed [facility] 00:00:00 [facility] Heamophilus 1992 Completed [facility] of Influenza B 00:00:00 [facility] Hib-HbOC 1992 Completed [facility] 00:00:00 [facility] Poliovirus, Live, 1992 Completed Univers ity of Oral, Trivalent 00:00:00 [facility] DTP 1992 Completed [facility] 00:00:00 [facility] Heamophilus 1992 Completed [facility] of Influenza B 00:00:00 [facility] Hib-HbOC 1992 Completed [facility] of 00:00:00 [facility] Poliovirus, Live, 1992 Completed Univers ity of Oral, Trivalent 00:00:00 [facility] 1992 Completed [facility] 00:00:00 [facility] Heamophilus 1992 Completed [facility] of Influenza B 00:00:00 [facility] Hib-HbOC 1992 Completed [facility] 00:00:00 [facility] Poliovirus, Live, 1992 Completed [facility]y of Oral, Trivalent 00:00:00 [facility] 1992 Completed [facility] 00:00:00 [facility] Heamophilus 1992 Completed [facility] of Influenza B 00:00:00 [facility] Hib-HbOC 1992 Completed [facility] 00:00:00 [facility] Poliovirus, Live, 1992 Completed [facility] of Oral, Trivalent 00:00:00 [facility] 1992 Completed [facility] 00:00:00 [facility] Heamophilus 1992 Completed [facility] of Influenza B 00:00:00 [facility] Hib-HbOC 1992 Completed [facility] of 00:00:00 [facility] Poliovirus, Live, 1992 Completed [facility] of Oral, Trivalent 00:00:00 [facility] 1992 Completed [facility] 00:00:00 [facility] Heamophilus 1992 Completed [facility] of Influenza B 00:00:00 [facility] Hib-HbOC 1992 Completed [facility] 00[facility]00 [facility] [facility] [place] Poliovirus, Live, 1992 Completed [facility] Oral, Trivalent 00:00:00 [facility] 1992 Completed [facility] 00:00:00 [facility] Heamophilus 1992 Completed University of Influenza B 00:00:00 [facility] Hib-HbOC 1992 Completed [facility] 00:00:00 [facility] Poliovirus, Live, 1992 Completed [facility] Oral, Trivalent 00:00:00 [facility] 1992 Completed [facility] 00:00:00 [facility] Heamophilus 1992 Completed [facility] of Influenza B 00:00:00 [facility] Hib-HbOC 1992 Completed [facility] 00:00:00 [facility] Poliovirus, Live, 1992 Completed [facility] Oral, Trivalent 00:00:00 [facility] 1992 Completed [facility] 00:00:00 [facility] Heamophilus 1992 Completed [facility] of Influenza B 00:00:00 [facility] Hib-HbOC 1992 Completed [facility] 00:00:00 [facility] Poliovirus, Live, 1992 Completed [facility] Oral, Trivalent 00:00:00 [facility] 1992 Completed [facility] 00:00:00 [facility] Heamophilus 1992 Completed [facility] of Influenza B 00:00:00 [facility] Hib-HbOC 1992 Completed [facility] 00:00:00 [facility] Poliovirus, Live, 1992 Completed [facility] Oral, Trivalent 00:00:00 [facility] 1992 Completed [facility] 00:00:00 [facility] Heamophilus 1992 Completed [facility] of Influenza B 00:00:00 [facility] Hib-HbO 1992 Completed [facility] 00:00:00 [facility] Poliovirus, Live, 1992 Completed [facility] Oral, Trivalent 00:00:00 [facility] 1992 Completed [facility] 00:00:00 [facility] Heamophilus 1992 Completed [facility] of Influenza B 00:00:00 [facility] Hib-HbOC 1992 Completed [facility] 00:00:00 [facility] Poliovirus, Live, 1992 Completed [facility] Oral, Trivalent 00:00:00 [facility] 1992 Completed [facility] 00:00:00 [facility] Heamophilus 1992 Completed [facility] of Influenza B 00:00:00 [facility] Hib-HbOC 1992 Completed [facility] 00:00:00 [facility] Poliovirus, Live, 1992 Completed [facility] Oral, Trivalent 00:00:00 [facility] 1992 Completed [facility] 00:00:00 [facility] Heamophilus 1992 Completed [facility] of Influenza B 00:00:00 [facility] Hib-HbOC 1992 Completed [facility] 00:00:00 [facility] Poliovirus, Live, 1992 Completed [facility] Oral, Trivalent 00:00:00 [facility] 1992 Completed [facility] 00:00:00 [facility] Heamophilus 1992 Completed [facility] of Influenza B 00:00:00 [facility] Hib-HbOC 1992 Completed [facility] 00:00:00 [facility] Poliovirus, Live, 1992 Completed [facility] Oral, Trivalent 00:00:00 [facility] 1992 [facility] Influenza B [facility]:00 [facility] Hib-HbOC 1992 Completed [facility] 00:00:00 [facility] Poliovirus, Live, 1992 Completed [facility] Oral, Trivalent 00:00:00 [facility] 1992 Completed [facility] 00:00:00 [facility] 1992 Completed [facility] Influenza B 00:00:00 [facility] Hib-HbOC 1992 Completed [facility] 00:00:00 [facility] Poliovirus, Live, 1992 Completed [facility] Oral, Trivalent 00:00:00 [facility] 1992 Completed [facility] 00:00:00 [facility] Heamophilus 1992 Completed [facility] of Influenza B 00:00:00 [facility] Hib-HbOC 1992 Completed [facility] 00:00:00 [facility] Poliovirus, Live, 1992 Completed [facility] Oral, Trivalent 00:00:00 [facility] 1992 Completed [facility] 00:00:00 [facility] Heamophilus 1992 Completed [facility] of Influenza B 00:00:00 [facility] Hib-HbOC 1992 Completed [facility] 00:00:00 [facility] Poliovirus, Live, 1992 Completed [facility] Oral, Trivalent 00:00:00 [facility] 1992 Completed [facility] 00:00:00 [facility] Heamophilus 1992 Completed [facility] of Influenza B 00:00:00 [facility] Hib-HbOC 1992 Completed [facility] 00:00:00 [facility] Poliovirus, Live, 1992 Completed [facility] Oral, Trivalent 00:00:00 [facility] 1992 Completed [facility] 00:00:00 [facility] Heamophilus 1992 Completed [facility] of Influenza B 00:00:00 [facility] Hib-HbO 1992 Completed [facility] 00:00:00 [facility] Poliovirus, Live, 1992 Completed [facility] Oral, Trivalent 00:00:00 [facility] 1992 Completed [facility] 00:00:00 [facility] Heamophilus 1992 Completed [facility] of Influenza B 00:00:00 [facility] Hib-HbO 1992 Completed [facility] 00:00:00 [facility] Poliovirus, Live, 1992 Completed [facility] Oral, Trivalent 00:00:00 [facility] 1992 Com[facility] Influenza B 00:00:00 [facility] Hib-HbOC 1992 Completed [facility] 00:00:00 [facility] Poliovirus, Live, 1992 Completed [facility] Oral, Trivalent 00:00:00 [facility] 1992 Completed [facility] 00:00:00 [facility] Heamophilus 1992 Completed [facility] of Influenza B 00:00:00 [facility] Hib-HbOC 1992 Completed [facility] 00:00:00 [facility] Poliovirus, Live, 1992 Completed [facility] Oral, Trivalent 00:00:00 [facility] 1992 Completed [facility] 00:00:00 [facility] Heamophilus 1992 Completed [facility] of Influenza B 00:00:00 [facility] Hib-HbOC 1992 Completed [facility] 00:00:00 [facility] Poliovirus, Live, 1992 Completed [facility] Oral, Trivalent 00:00:00 [facility] 1992 Completed [facility] 00:00:00 [facility] Heamophilus 1992 Completed [facility] of Influenza B 00:00:00 [facility] Hib-HbOC 1992 Completed [facility] 00:00:00 [facility] Poliovirus, Live, 1992 Completed [facility] Oral, Trivalent 00:00:00 [facility] 1992 Completed [facility] Influenza B 00:00:00 [facility] Hib-HbOC 1992 Completed [facility] 00:00:00 [facility] Poliovirus, Live, 1992 Completed [facility] Oral, Trivalent 00:00:00 [facility] 1992 Completed [facility] Influenza B 00:00:00 [facility] Hib-HbOC 1992 Completed [facility] 00:00:00 [facility] Poliovirus, Live, 1992 Completed [facility] Oral, Trivalent 00:00:00 [facility] 1992 Completed [facility] 00:00:00 [facility] Heamophilus 1992 Completed [facility] of Influenza B 00:00:00 [facility] Hib-HbOC 1992 Completed [facility] 00:00:00 [facility] Poliovirus, Live, 1992 Completed [facility] Oral, Trivalent 00:00:00 [facility] 1992 Completed [facility] 00:00:00 [facility] Heamophilus 1992 Completed [facility] of Influenza B 00:00:00 [facility] Hib-HbOC 1992 Completed [facility] 00:00:00 [facility] Poliovirus, Live, 1992 Completed [facility] Oral, Trivalent 00:00:00 [facility] 1992 Completed [facility] 00:00:00 [facility] Heamophilus 1992 Completed [facility] Influenza B 00:00:00 [facility] Hib-HbOC 1992 Completed [facility] 00:00:00 [facility] Poliovirus, Live, 1992 Completed [facility] Oral, Trivalent 00:00:00 [facility] 1992 Completed [facility] 00:00:00 [facility] Heamophilus 1992 Completed [facility] Influenza B 00:00:00 [facility] Hib-HbOC 1992 Completed [facility] 00:00:00 [facility] Poliovirus, Live, 1992 Completed [facility] Oral, Trivalent 00:00:00 [facility] 1992 Completed [facility] Influenza B 00:00:00 [facility] Hib-HbOC 1992 Completed [facility] 00:00:00 [facility] Poliovirus, Live, 1992 Completed [facility] Oral, Trivalent 00:00:00 [facility] 1992 Completed [facility] 00:00:00 [facility] 1992 Completed [facility] Influenza B 00:00:00 [facility] Hib-HbO 1992 Completed [facility] 00:00:00 [facility] Poliovirus, Live, 1992 Completed [facility] Oral, Trivalent 00:00:00 [facility] 1992 Completed [facility] 00:00:00 [facility] Heamophilus 1992 Completed [facility] of Influenza B 00:00:00 [facility] Hib-HbOC 1992 Completed [facility] 00:00:00 [facility] Poliovirus, Live, 1992 Completed [facility] Oral, Trivalent 00:00:00 [facility] 1992 Completed [facility] 00:00:00 [facility] Heamophilus 1992 Completed [facility] Influenza B 00:00:00 [facility] Hib-HbOC 1992 Completed [facility] 00:00:00 [facility] Poliovirus, Live, 1992 Completed [facility] Oral, Trivalent 00:00:00 [facility] 1992 Completed [facility] 00:00:00 [facility] Heamophilus 1992 Completed [facility] of Influenza B 00:00:00 [facility] Hib-HbOC 1992 Completed [facility] 00:00:00 [facility] Poliovirus, Live, 1992 Completed [facility] Oral, Trivalent 00:00:00 [facility] 1992 Completed [facility] 00:00:00 [facility] Heamophilus 1992 Completed [facility] of Influenza B 00:00:00 [facility] Hib-HbOC 1992 Completed [facility] 00:00:00 [facility] Poliovirus, Live, 1992 Completed [facility] Oral, Trivalent 00:00:00 [facility] 1992 Completed [facility] Influenza B 00:00:00 [facility] Hib-HbO 1992 Completed [facility] 00:00:00 [facility] Poliovirus, Live, 1992 Completed [facility] Oral, Trivalent 00:00:00 [facility] 1992 Completed [facility] Influenza B 00:00:00 [facility] Hib-HbOC 1992 Completed [facility] 00:00:00 [facility] Poliovirus, Live, 1992 Completed [facility] Oral, Trivalent 00:00:00 [facility] 1992 Completed [facility] 00:00:00 [facility] Heamophilus 1992 Completed [facility] Influenza B 00:00:00 [facility] Hib-HbOC 1992 Completed [facility] 00:00:00 [facility] Poliovirus, Live, 1992 Completed [facility] Oral, Trivalent 00:00:00 [facility] 1992 Completed [facility] 00:00:00 [facility] Heamophilus 1992 Completed [facility] Influenza B 00:00:00 [facility] Hib-HbOC 1992 Completed [facility] 00:00:00 [facility] Poliovirus, Live, 1992 Completed [facility] Oral, Trivalent 00:00:00 [facility] 1992 Completed [facility] 00:00:00 [facility] Heamophilus 1992 Completed [facility] of Influenza B 00:00:00 [facility] Hib-HbOC 1992 Completed [facility] 00:00:00 [facility] Poliovirus, Live, 1992 Completed [facility] Oral, Trivalent 00:00:00 [facility] 1992 Completed [facility] Influenza B 00:00:00 [facility] Hib-HbOC 1992 Completed [facility] 00:00:00 [facility] Poliovirus, Live, 1992 Completed [facility] Oral, Trivalent 00:00:00 [facility] 1992 Completed [facility] 00:00:00 [facility] Heamophilus 1992 Completed [facility] of Influenza B 00:00:00 [facility] Hib-HbOC 1992 Completed [facility] 00:00:00 [facility] Poliovirus, Live, 1992 Completed [facility] Oral, Trivalent 00:00:00 [facility] 1992 Completed [facility] 00:00:00 [facility] Heamophilus 1992 Completed [facility] of Influenza B 00:00:00 [facility] Hib-HbOC 1992 Completed [facility] 00:00:00 [facility] Poliovirus, Live, 1992 Completed [facility] Oral, Trivalent 00:00:00 [facility] 1992 Completed [facility] 00:00:00 [facility] Heamophilus 1992 Completed [facility] of Influenza B 00:00:00 [facility] Hib-HbOC 1992 Completed [facility] 00:00:00 [facility] Poliovirus, Live, 1992 Completed [facility] Oral, Trivalent 00:00:00 [facility] 1992 Completed [facility] 00:00:00 [facility] Heamophilus 1992 Completed [facility] Influenza B 00:00:00 [facility] Hib-HbOC 1992 Completed [facility] 00:00:00 [facility] Poliovirus, Live, 1992 Completed [facility] Oral, Trivalent 00:00:00 [facility] 1992 Completed [facility] 00:00:00 [facility] Heamophilus 1992 Completed [facility] of Influenza B 00:00:00 [facility] Hib-HbOC 1992 Completed [facility] 00:00:00 [facility] Poliovirus, Live, 1992 Completed [facility] Oral, Trivalent 00:00:00 [facility] 1992 Completed [facility] Influenza B 00:00:00 [facility] Hib-HbOC 1992 Completed [facility] 00:00:00 [facility] Poliovirus, Live, 1992 Completed [facility] Oral, Trivalent 00:00:00 [facility] 1992 Completed [facility] Influenza B 00:00:00 [facility] Hib-HbO 1992 Completed [facility] 00:00:00 [facility] Poliovirus, Live, 1992 Completed [facility] Oral, Trivalent 00:00:00 [facility] 1992 Completed [facility] 00:00:00 [facility] Heamophilus 1992 Completed [facility] of Influenza B 00:00:00 [facility] Hib-HbOC 1992 Completed [facility] 00:00:00 [facility] Poliovirus, Live, 1992 Completed [facility] Oral, Trivalent 00:00:00 [facility] 1992 Completed [facility] 00:00:00 [facility] Heamophilus 1992 Completed [facility] of Influenza B 00:00:00 [facility] Hib-HbOC 1992 Completed [facility] 00:00:00 [facility] Poliovirus, Live, 1992 Completed [facility] of Oral, Trivalent 00:00:00 [facility] 1992 Completed [facility] 00:00:00 [facility] 1992 Completed [facility] Influenza B 00:00:00 [facility] Hib-HbO 1992 Completed [facility] 00:00:00 [facility] Poliovirus, Live, 1992 Completed [facility] of Oral, Trivalent 00:00:00 [facility] 1992 Completed [facility] 00:00:00 [facility] 1992 Completed [facility] Influenza B 00:00:00 [facility] Hib-HbO 1992 Completed [facility] 00:00:00 [facility] Poliovirus, Live, 1992 Completed [facility] Oral, Trivalent 00:00:00 [facility] 1992 Completed [facility] 00:00:00 [facility] 1992 Completed [facility] Influenza B 00:00:00 [facility] Hib-HbO 1992 Completed [facility] 00:00:00 [facility] Poliovirus, Live, 1992 Completed [facility] Oral, Trivalent 00:00:00 [facility] 1992 Completed [facility] 00:00:00 [facility] 1992 Completed [facility] Influenza B 00:00:00 [facility] Hib-HbO 1992 Completed [facility] 00:00:00 [facility] Poliovirus, Live, 1992 Completed [facility] Oral, Trivalent 00:00:00 [facility] 1992 Completed [facility] 00:00:00 [facility] 1992 Completed [facility] Influenza B 00:00:00 [facility] Hib-HbO 1992 Completed [facility] 00:00:00 [facility] Poliovirus, Live, 1992 Completed [facility] Oral, Trivalent 00:00:00 [facility] SARS-COV-2 COVID-19 Unknown Completed Unive rsity of PFIZER VACCINE [facility] SARS-COV-2 COVID-19 Unknown Completed Unive rsity of PFIZER VACCINE [facility] DTP Unknown Completed [facility] DTP Unknown Completed [facility] DTP Unknown Completed [facility] DTP Unknown Completed [facility] DTaP, Unspecified Unknown Completed [facility] of Formulation [facility] Influenza Virus Unknown Completed [facility] y of Vaccine Quad .5 mL [facility] 6+ [place] [facility] (FLUZONE/FLULAVAL/FL UARIX) Hep B, Unspecified Unknown Completed Univer sity of Formulation [facility] HEPATITIS A Unknown Completed [facility] HEPATITIS A Unknown Completed [facility] Hep B, Unspecified Unknown Completed Univer sity of Formulation [facility] Hep B, Adol or Pedi Unknown Completed Unive rsity of Dosage [facility] Hep B, Adol or Pedi Unknown Completed Unive rsity of Dosage [facility] Hep B, Adol or Pedi Unknown Completed Unive rsity of Dosage [facility] Heamophilus Unknown Completed [facility] Influenza B [facility] Heamophilus Unknown Completed [facility] Influenza [facility] Heamophilus Unknown Completed [facility] Influenza B [facility] Heamophilus Unknown Completed [facility] Hib-HbOC Unknown Completed [facility] Hib[facility]HbOC Unknown Completed [facility] Hib-HbOC Unknown Completed [facility] Hib-HbOC Unknown Completed [facility] HPV Unknown Completed [facility] HPV Unknown Completed [facility] HPV Unknown [facility]pleted [facility] Meningococcal Unknown Completed [facility] Polysaccharide [facility] (groups A, C, Y and Branc h W-135) conjugate vaccine (MCV4P) MMR Unknown Completed [facility] MMR Unknown Completed [facility] Poliovirus, Live, Unknown Completed [facility] of Oral, Trivalent [facility] Poliovirus, Live, Unknown Completed [facility] of Oral, Trivalent [facility] Poliovirus, Live, Unknown Completed [facility] of Oral, Trivalent [facility] Poliovirus, Live, Unknown Completed [facility] of Oral, Trivalent [facility] Tetanus/Diptheria Unknown Completed Univers ity [facility] TDAP Unknown Completed [facility] Varicella Unknown Completed [facility] (varivax)(chicken [place] [facility] pox) [facility] Varicella Unknown Completed [facility] (varivax)(chicken [place] [facility] pox) Branch SARS-COV-2 COVID-19 Unknown Completed Unive rsity of PFIZER VACCINE [facility] SARS-COV-2 COVID-19 Unknown Completed Unive rsity of PFIZER VACCINE [facility] DTP Unknown Completed [facility] DTP Unknown Completed [facility] DTP Unknown Completed [facility] DTP Unknown Completed [facility] DTaP, Unspecified Unknown Completed [facility] of Formulation [facility] Influenza Virus Unknown Completed [facility] y of Vaccine Quad .5 mL [facility] IM 6+ [place] [facility] (FLUZONE/FLULAVAL/FL UARIX) Hep B, Unspecified Unknown Completed Univer sity of Formulation [facility] HEPATITIS A Unknown Completed [facility] HEPATITIS A Unknown Completed [facility] Hep B, Unspecified Unknown Completed Univer sity of Formulation [facility] Hep B, Adol or Pedi Unknown Completed Unive rsity of Dosage [facility] Hep B, Adol or Pedi Unknown Completed Unive rsity of Dosage [facility] Hep B, Adol or Pedi Unknown Completed Unive rsity of Dosage [facility] Heamophilus Unknown Completed [facility] Influenza [facility] Heamophilus Unknown Completed [facility] Influenza [facility] Heamophilus Unknown Completed [facility] Influenza B [facility] Heamophilus Unknown Completed [facility] Hib-HbOC Unknown [facility]pleted [facility] Hib-HbOC Unknown Completed [facility] Hib-HbOC Unknown Completed [facility] Hib-HbOC Unknown Completed [facility] HPV Unknown Completed [facility] HPV Unknown [facility]pleted [facility] HPV Unknown Completed [facility] Meningococcal Unknown Completed [facility] (groups A, C, Y and Branc h W-135) conjugate vaccine (MCV4P) MMR Unknown Completed [facility] MMR Unknown Completed [facility] Poliovirus, Live, Unknown Completed Univers ity of Oral, Trivalent [facility] Poliovirus, Live, Unknown Completed Univers ity of Oral, Trivalent [facility] Poliovirus, Live, Unknown Completed Univers [facility]y of Oral, Trivalent [facility] Poliovirus, Live, Unknown Completed Univers ity of Oral, Trivalent [facility] Tetanus/Diptheria Unknown Completed Univers ity [facility] TDAP Unknown Completed [facility] Varicella Unknown Completed [facility] (varivax[facility] [place] [facility] pox) [facility] Varicella Unknown Completed [facility] (varivax[facility] [place] [facility] pox[place] [facility] SARS-COV-2 COVID-19 Unknown Completed Unive rsity of PFIZER VACCINE [facility] SARS-COV-2 COVID-19 Unknown Completed Unive rsity of PFIZER VACCINE [facility] DTP Unknown Completed [facility] DTP Unknown Completed [facility] DTP Unknown Completed [facility] DTP Unknown Completed [facility] DTaP, Unspecified Unknown Completed [facility] of Formulation [facility] Influenza Virus Unknown Completed Universit y of Vaccine Quad .5 mL [facility] 6+ MO Branch (FLUZONE/FLULAVAL/FL UARIX) Hep B, Unspecified Unknown Completed Univer sity of Formulation [facility] HEPATITIS A Unknown Completed [facility] HEPATITIS A Unknown Completed [facility] Hep B, Unspecified Unknown Completed Univer [facility]ity of [facility] Hep B, Adol or Pedi Unknown Completed Unive rsity of Dosage [facility] Hep B, Adol or Pedi Unknown Completed Unive rs[facility] of Dosage [facility] Hep B, Adol or Pedi Unknown Completed Unive rsity of Dosage [facility] Heamophilus Unknown Completed [facility] Heamophilus Unknown Completed [facility] Influenza [facility] Heamophilus Unknown Completed [facility] Influenza [facility] Heamophilus Unknown Completed [facility] Influenza [facility] Hib-HbOC Unknown [facility]pleted [facility] Hib-HbOC Unknown Completed [facility] Hib-HbOC Unknown [facility]pleted [facility] Hib-HbOC Unknown Completed [facility] HPV Unknown Completed [facility] HPV Unknown [facility]pleted [facility] HPV Unknown Completed [facility] Meningococcal Unknown Completed [facility] (groups A, C, Y and Branc h W-135) conjugate vaccine (MCV4P) MMR Unknown Completed [facility] MMR Unknown Completed [facility] Poliovirus, Live, Unknown Completed [facility] Oral, Trivalent [facility] Poliovirus, Live, Unknown Completed [facility] of Oral, Trivalent [facility] Poliovirus, Live, Unknown Completed [facility] of Oral, Trivalent [facility] Poliovirus, Live, Unknown Completed [facility]y of Oral, Trivalent [facility] Tetanus/Diptheria Unknown Completed Univers ity [facility] TDAP Unknown Completed [facility] Varicella Unknown Completed [facility] (varivax)([place]icken [place] [facility] pox) [facility] Varicella Unknown Completed [facility] (varivax)(chicken [place] [facility] pox) [facility] SARS-COV-2 COVID-19 Unknown Completed Unive rsity of PFIZER VACCINE [facility] SARS-COV-2 COVID-19 Unknown Completed Unive rsity of PFIZER VACCINE [facility] DTP Unknown Completed [facility] DTP Unknown Completed [facility] DTP Unknown Completed [facility] DTP Unknown Completed [facility] DTaP, Unspecified Unknown Completed [facility] of Formulation [facility] Influenza Virus Unknown Completed Universit y of Vaccine Quad .5 mL [facility] 6+ MO Branch (FLUZONE/FLULAVAL/FL UARIX) Hep B, Unspecified Unknown Completed Univer sity of Formulation [facility] HEPATITIS A Unknown Completed [facility] HEPATITIS A Unknown Completed [facility] Hep B, Unspecified Unknown Completed Univer sity of Formulation [facility] Hep B, Adol or Pedi Unknown Completed Unive rsity of Dosage [facility] Hep B, Adol or Pedi Unknown Completed Unive [facility] of Dosage [facility] Hep B, Adol or Pedi Unknown Completed Unive rsity of Dosage [facility] Heamophilus Unknown Completed [facility] Influenza [facility] Heamophilus Unknown Completed [facility] Influenza [facility] Heamophilus Unknown Completed [facility] Influenza [facility] Heamophilus Unknown Completed [facility] Hib-HbOC Unknown [facility]pleted [facility] Hib-HbOC Unknown [facility]pleted [facility] Hib-HbOC Unknown Completed [facility] Hib-HbOC Unknown Completed [facility] HPV Unknown Completed [facility] HPV Unknown Completed [facility] HPV Unknown Completed [facility] Meningococcal Unknown Completed [facility] (groups A, C, Y and Branc h W-135) conjugate vaccine (MCV4P) MMR Unknown Completed [facility] MMR Unknown Completed [facility] Poliovirus, Live, Unknown Completed [facility] of Oral, Trivalent [facility] Poliovirus, Live, Unknown Completed Univers [facility] of Oral, Trivalent [facility] Poliovirus, Live, Unknown Completed Univers [facility]y of Oral, Trivalent [facility] Poliovirus, Live, Unknown Completed [facility] of Oral, Trivalent [facility] Tetanus/Diptheria Unknown Completed Univers ity [facility] TDAP Unknown Completed [facility] Varicella Unknown Completed [facility] (varivax[place] [place] [facility] pox) [facility] Varicella Unknown Completed [facility] (varivax[facility]icken [place] [facility] pox) [facility] SARS-COV-2 COVID-19 Unknown Completed Unive rsity of PFIZER VACCINE [facility] SARS-COV-2 COVID-19 Unknown Completed Unive rsity of PFIZER VACCINE [facility] DTP Unknown Completed [facility] DTP Unknown Completed [facility] DTP Unknown Completed [facility] DTP Unknown Completed [facility] DTaP, Unspecified Unknown Completed [facility] it[facility] of Formulation [facility] Influenza Virus Unknown Completed Universit y of Vaccine Quad .5 mL [facility] 6+ MO Branch (FLUZONE/FLULAVAL/FL UARIX) Hep B, Unspecified Unknown Completed Univer sity of Formulation [facility] HEPATITIS A Unknown Completed [facility] HEPATITIS A Unknown Completed [facility] Hep B, Unspecified Unknown Completed [facility]iver [facility]ity of [facility] Hep B, Adol or Pedi Unknown Completed Unive rsity of Dosage [facility] Hep B, Adol or Pedi Unknown Completed Unive rsity of Dosage [facility] Hep B, Adol or Pedi Unknown Completed Unive rsity of Dosage [facility] Heamophilus Unknown Completed [facility] Influenza B [facility] Heamophilus Unknown Completed [facility] Influenza B [facility] Heamophilus Unknown Completed [facility] Influenza B [facility] Heamophilus Unknown Completed [facility] Influenza B [facility] Hib-HbOC Unknown [facility]pleted [facility] Hib-HbOC Unknown Completed [facility] Hib-HbOC Unknown Completed [facility] Hib-HbOC Unknown Completed [facility] HPV Unknown Completed [facility] HPV Unknown [facility]pleted [facility] HPV Unknown Completed [facility] Meningococcal Unknown Completed University Polysaccharide [facility] (groups A, C, Y and Branc h W-135) conjugate vaccine (MCV4P) MMR Unknown Completed [facility] MMR Unknown Completed [facility] Poliovirus, Live, Unknown Completed Univers ity of Oral, Trivalent [facility] Poliovirus, Live, Unknown Completed Univers ity of Oral, Trivalent [facility] Poliovirus, Live, Unknown Completed Univers ity of Oral, Trivalent [facility] Poliovirus, Live, Unknown Completed Univers ity of Oral, Trivalent [facility] Tetanus/Diptheria Unknown Completed Univers ity [facility] TDAP Unknown Completed [facility] Varicella Unknown Completed [facility] (varivax[place] [place] [facility] pox) [facility] Varicella Unknown Completed [facility] (varivax)(chicken [place] [facility] pox) [facility] SARS-COV-2 COVID-19 Unknown Completed Unive rsity of PFIZER VACCINE [facility] SARS-COV-2 COVID-19 Unknown Completed Unive rsity of PFIZER VACCINE [facility] DTP Unknown Completed [facility] DTP Unknown Completed [facility] DTP Unknown Completed [facility] DTP Unknown Completed [facility] DTaP, Unspecified Unknown Completed [facility] it[facility] of Formulation [facility] Influenza Virus Unknown Completed Universit y of Vaccine Quad .5 mL [facility] 6+ MO [facility] (FLUZONE/FLULAVAL/FL UARIX) Hep B, Unspecified Unknown Completed Univer sity of Formulation [facility] HEPATITIS A Unknown Completed [facility] HEPATITIS A Unknown Completed [facility] Hep B, Unspecified Unknown Completed Univer sity of Formulation [facility] Hep B, Adol or Pedi Unknown Completed Unive rsity of Dosage [facility] Hep B, Adol or Pedi Unknown Completed Unive rsity of Dosage [facility] Hep B, Adol or Pedi Unknown Completed Unive rsity of Dosage [facility] Heamophilus Unknown Completed [facility] Influenza B [facility] Heamophilus Unknown Completed [facility] Influenza B [facility] Heamophilus Unknown Completed [facility] Influenza B [facility] Heamophilus Unknown Completed [facility] Influenza B [facility] Hib-HbOC Unknown [facility]pleted [facility] Hib-HbOC Unknown Completed [facility] Hib-HbOC Unknown Completed [facility] Hib-HbOC Unknown Completed [facility] HPV Unknown Completed [facility] HPV Unknown [facility]pleted [facility] HPV Unknown Completed [facility] Meningococcal Unknown Completed [facility] (groups A, C, Y and Branc h W-135) conjugate vaccine (MCV4P) MMR Unknown Completed [facility] MMR Unknown Completed [facility] Poliovirus, Live, Unknown Completed Univers ity of Oral, Trivalent [facility] Poliovirus, Live, Unknown Completed Univers ity of Oral, Trivalent [facility] Poliovirus, Live, Unknown Completed Univers ity of Oral, Trivalent [facility] Poliovirus, Live, Unknown Completed Univers ity of Oral, Trivalent [facility] Tetanus/Diptheria Unknown Completed Univers ity [facility] TDAP Unknown Completed [facility] Varicella Unknown Completed [facility] (varivax)(chicken [place] [facility] pox) [facility] Varicella Unknown Completed [facility] (varivax)(chicken [place] [facility] pox) [facility] SARS-COV-2 COVID-19 Unknown Completed Unive rsity of PFIZER VACCINE [facility] SARS-COV-2 COVID-19 Unknown Completed Unive rsity of PFIZER VACCINE [facility] DTP Unknown Completed [facility] DTP Unknown Completed [facility] DTP Unknown Completed [facility] DTP Unknown Completed [facility] DTaP, Unspecified Unknown Completed [facility] it[facility] of Formulation [facility] Influenza Virus Unknown Completed Universit y of Vaccine Quad .5 mL [facility] 6+ MO [facility] (FLUZONE/FLULAVAL/FL UARIX) Hep B, Unspecified Unknown Completed Univer sity of Formulation [facility] HEPATITIS A Unknown Completed [facility] HEPATITIS A Unknown Completed [facility] Hep B, Unspecified Unknown Completed Univer sity of Formulation [facility] Hep B, Adol or Pedi Unknown Completed Unive rsity of Dosage [facility] Hep B, Adol or Pedi Unknown Completed Unive rsity of Dosage [facility] Hep B, Adol or Pedi Unknown Completed Unive rsity of Dosage [facility] Heamophilus Unknown Completed [facility] Influenza B [facility] Heamophilus Unknown Completed [facility] Influenza B [facility] Heamophilus Unknown Completed [facility] Influenza B [facility] Heamophilus Unknown Completed [facility] Influenza B [facility] Hib-HbOC Unknown Completed [facility] Hib-HbOC Unknown Completed [facility] Hib-HbOC Unknown Completed [facility] Hib-HbOC Unknown Completed [facility] HPV Unknown Completed [facility] HPV Unknown [facility]pleted [facility] HPV Unknown Completed [facility] Meningococcal Unknown Completed [facility] (groups A, C, Y and Branc h W-135) conjugate vaccine (MCV4P) MMR Unknown Completed [facility] MMR Unknown Completed [facility] Poliovirus, Live, Unknown Completed [facility]y of Oral, Trivalent [facility] Poliovirus, Live, Unknown Completed Univers ity of Oral, Trivalent [facility] Poliovirus, Live, Unknown Completed Univers ity of Oral, Trivalent [facility] Poliovirus, Live, Unknown Completed Univers ity of Oral, Trivalent [facility] Tetanus/Diptheria Unknown Completed Univers ity [facility] TDAP Unknown Completed [facility] Varicella Unknown Completed [facility] (varivax)(chicken [place] [facility] pox) [facility] Varicella Unknown Completed [facility] (varivax)(chicken [place] M [facility] pox) Branch SARS-COV-2 COVID-19 Unknown Completed Unive rsity of PFIZER VACCINE [facility] SARS-COV-2 COVID-19 Unknown Completed Unive rsity of PFIZER VACCINE [facility] DTP Unknown Completed [facility] DTP Unknown Completed [facility] DTP Unknown Completed [facility] DTP Unknown Completed [facility] DTaP, Unspecified Unknown Completed [facility] it[facility] of Formulation [facility] Influenza Virus Unknown Completed Universit y of Vaccine Quad .5 mL [facility] 6+ MO Branch (FLUZONE/FLULAVAL/FL UARIX) Hep B, Unspecified Unknown Completed Univer sity of Formulation [facility] HEPATITIS A Unknown Completed [facility] HEPATITIS A Unknown Completed [facility] Hep B, Unspecified Unknown Completed Univer sity of Formulation [facility] Hep B, Adol or Pedi Unknown Completed Unive rsity of Dosage [facility] Hep B, Adol or Pedi Unknown Completed Unive rsity of Dosage [facility] Hep B, Adol or Pedi Unknown Completed Unive rsity of Dosage [facility] Heamophilus Unknown Completed [facility] Influenza [facility] Heamophilus Unknown Completed [facility] Influenza [facility] Heamophilus Unknown Completed [facility] Influenza [facility] Heamophilus Unknown Completed [facility] Influenza [facility] Hib-HbOC Unknown Completed [facility] Hib-HbOC Unknown Completed [facility] Hib-HbOC Unknown Completed [facility] Hib-HbOC Unknown Completed [facility] HPV Unknown Completed [facility] HPV Unknown Completed [facility] HPV Unknown Completed [facility] Meningococcal Unknown Completed [facility] (groups A, C, Y and Branc h W-135) conjugate vaccine (MCV4P) MMR Unknown Completed [facility] MMR Unknown Completed [facility] Poliovirus, Live, Unknown Completed Univers ity of Oral, Trivalent [facility] Poliovirus, Live, Unknown Completed Univers ity of Oral, Trivalent [facility] Poliovirus, Live, Unknown Completed Univers ity of Oral, Trivalent [facility] Poliovirus, Live, Unknown Completed Univers ity of Oral, Trivalent [facility] Tetanus/Diptheria Unknown Completed Univers ity [facility] TDAP Unknown Completed [facility] Varicella Unknown Completed [facility] (varivax)([place]icken [place] [facility] pox) [facility] Varicella Unknown Completed [facility] (varivax)(chicken [place] [facility] pox) [facility] SARS-COV-2 COVID-19 Unknown Completed Unive rsity of PFIZER VACCINE [facility] SARS-COV-2 COVID-19 Unknown Completed Unive rsity of PFIZER VACCINE [facility] DTP Unknown Completed [facility] DTP Unknown Completed [facility] DTP Unknown Completed [facility] DTP Unknown Completed [facility] DTaP, Unspecified Unknown Completed Univers ity of Formulation [facility] Influenza Virus Unknown Completed Universit y of Vaccine Quad .5 mL [facility] 6+ MO [facility] (FLUZONE/FLULAVAL/FL UARIX) Hep B, Unspecified Unknown Completed Univer sity of Formulation [facility] HEPATITIS A Unknown Completed [facility] HEPATITIS A Unknown Completed [facility] Hep B, Unspecified Unknown Completed Univer sity of Formulation [facility] Hep B, Adol or Pedi Unknown Completed Unive rsity of Dosage [facility] Hep B, Adol or Pedi Unknown Completed Unive rsity of Dosage [facility] Hep B, Adol or Pedi Unknown Completed Unive rsity of Dosage [facility] Heamophilus Unknown Completed [facility] Influenza B [facility] Heamophilus Unknown Completed [facility] Influenza B [facility] Heamophilus Unknown Completed [facility] Influenza [facility] Heamophilus Unknown Completed [facility] Influenza [facility] Hib-HbOC Unknown Completed [facility] Hib-HbOC Unknown Completed [facility] Hib-HbOC Unknown Completed [facility] Hib-HbOC Unknown Completed [facility] HPV Unknown [facility]pleted [facility] HPV Unknown Completed [facility] HPV Unknown Completed [facility] Meningococcal Unknown Completed [facility] (groups A, C, Y and Branc h W-135) conjugate vaccine (MCV4P) MMR Unknown Completed [facility] MMR Unknown Completed [facility] Poliovirus, Live, Unknown Completed Univers ity of Oral, Trivalent [facility] Poliovirus, Live, Unknown Completed Univers ity of Oral, Trivalent [facility] Poliovirus, Live, Unknown Completed Univers [facility]y of Oral, Trivalent [facility] Poliovirus, Live, Unknown Completed Univers ity of Oral, Trivalent [facility] Tetanus/Diptheria Unknown Completed Univers ity [facility] TDAP Unknown Completed [facility] Varicella Unknown Completed [facility] (varivax)(chicken [place] [facility] pox) Branch Varicella Unknown Completed [facility] (varivax)(chicken [place] [facility] pox) [place] SARS-COV-2 COVID-19 Unknown Completed Unive rsity of PFIZER VACCINE [facility] SARS-COV-2 COVID-19 Unknown Completed [facility] [facility] DTP Unknown Com[facility] D[facility] Unknown [facility] DTP Unknown Completed [facility] DTP Unknown Completed [facility] DTaP, Unspecified Unknown Completed Univers [facility] of Formulation [facility] Influenza Virus Unknown Completed Universit y of Vaccine Quad .5 mL [facility] 6+ MO Branch (FLUZONE/FLULAVAL/FL UARIX) Hep B, Unspecified Unknown Completed Univer sity of Formulation [facility] HEPATITIS A Unknown Completed [facility] HEPATITIS A Unknown Completed [facility] Hep B, Unspecified Unknown Completed Univer sity of Formulation [facility] Hep B, Adol or Pedi Unknown Completed Unive rsity of Dosage [facility] Hep B, Adol or Pedi Unknown Completed Unive rsity of Dosage [facility] Hep B, Adol or Pedi Unknown Completed Unive rsity of Dosage [facility] Heamophilus Unknown Completed [facility] Influenza B [facility] Heamophilus Unknown Completed [facility] Influenza B [facility] Heamophilus Unknown Completed [facility] Influenza B [facility] Heamophilus Unknown Completed [facility] Influenza B [facility] Hib-HbOC Unknown Completed [facility] Hib-HbOC Unknown [facility]pleted [facility] Hib-HbOC Unknown Completed [facility] Hib-HbOC Unknown Completed [facility] HPV Unknown [facility]pleted [facility] HPV Unknown Completed [facility] HPV Unknown Completed [facility] Meningococcal Unknown Completed [facility] (groups A, C, Y and Branc h W-135) conjugate vaccine (MCV4P) MMR Unknown Completed [facility] MMR Unknown Completed [facility] Poliovirus, Live, Unknown Completed Univers it[facility] of Oral, Trivalent [facility] Poliovirus, Live, Unknown Completed Univers ity of Oral, Trivalent [facility] Poliovirus, Live, Unknown Completed Univers [facility]y of Oral, Trivalent [facility] Poliovirus, Live, Unknown Completed [facility] of Oral, Trivalent [facility] Tetanus/Diptheria Unknown Completed Univers ity [facility] TDAP Unknown Completed [facility] Varicella Unknown Completed [facility] (varivax[place] [place] [facility] pox) Branch Varicella Unknown Completed [facility] (varivax[facility] [place] [facility] pox[place] [facility] SARS-COV-2 COVID-19 Unknown Completed Unive rsity of PFIZER VACCINE [facility] SARS-COV-2 COVID-19 Unknown Completed Unive rsity of PFIZER VACCINE [facility] DTP Unknown Completed [facility] DTP Unknown Completed [facility] DTP Unknown Completed [facility] DTP Unknown Completed [facility] DTaP, Unspecified Unknown Completed [facility] Formulation [facility] Influenza Virus Unknown Completed [facility] Vaccine Quad .[facility] mL [facility] 6[facility] (FLUZONE/FLULAVAL/FL UARIX) Hep B, Unspecified Unknown Completed Univer sity of Formulation [facility] HEPATITIS A Unknown Completed [facility] HEPATITIS A Unknown Completed [facility] Hep B, Unspecified Unknown Completed Univer sity of Formulation [facility] Hep B, Adol or Pedi Unknown Completed Unive rsity of Dosage [facility] Hep B, Adol or Pedi Unknown Completed Unive rsity of Dosage [facility] Hep B, Adol or Pedi Unknown Completed Unive rsity of Dosage [facility] Heamophilus Unknown Completed [facility] Influenza B [facility] Heamophilus Unknown Completed [facility] Influenza [facility] Heamophilus Unknown Completed [facility] Influenza B [facility] Heamophilus Unknown Completed [facility] Influenza [facility] Hib-HbOC Unknown Completed [facility] Hib-HbOC Unknown Completed [facility] Hib-HbOC Unknown Completed [facility] Hib-HbOC Unknown Completed [facility] HPV Unknown [facility]pleted [facility] HPV Unknown [facility]pleted [facility] HPV Unknown Completed [facility] Meningococcal Unknown Completed [facility] (groups A, C, Y and Branc h W-135) conjugate vaccine (MCV4P) MMR Unknown Completed [facility] MMR Unknown Completed [facility] Poliovirus, Live, Unknown Completed Univers ity of Oral, Trivalent [facility] Poliovirus, Live, Unknown Completed [facility] it[facility] of Oral, Trivalent [facility] Poliovirus, Live, Unknown Completed [facility] ity of Oral, Trivalent [facility] Poliovirus, Live, Unknown Completed [facility] ity of Oral, Trivalent [facility] Tetanus/Diptheria Unknown Completed Univers ity [facility] TDAP Unknown Completed [facility] Varicella Unknown Completed [facility] of (varivax[place] [place] [facility] pox) Branch Varicella Unknown Completed [facility] (varivax[facility] [place] [facility] pox) [facility] SARS-COV-2 COVID-19 Unknown Completed Unive rsity of PFIZER VACCINE [facility] SARS-COV-2 COVID-19 Unknown Completed Unive rsity of PFIZER VACCINE [facility] DTP Unknown Completed [facility] DTP Unknown Completed [facility] DTP Unknown Completed [facility] DTP Unknown Completed [facility] DTaP, Unspecified Unknown Completed [facility] of Formulation [facility] Influenza Virus Unknown Completed [facility]it y of Vaccine Quad .5 mL [facility] IM 6+ MO Branch (FLUZONE/FLULAVAL/FL UARIX) Hep B, Unspecified Unknown Completed Univer sity of Formulation [facility] HEPATITIS A Unknown Completed [facility] HEPATITIS A Unknown Completed [facility] Hep B, Unspecified Unknown Completed Univer sity of Formulation [facility] Hep B, Adol or Pedi Unknown Completed Unive rsity of Dosage [facility] Hep B, Adol or Pedi Unknown Completed Unive rsity of Dosage [facility] Hep B, Adol or Pedi Unknown Completed Unive rsity of Dosage [facility] Heamophilus Unknown Completed [facility] Influenza [facility] Heamophilus Unknown Completed [facility] Heamophilus Unknown Completed [facility] Influenza B [facility] Heamophilus Unknown Completed [facility] Hib-HbOC Unknown Completed [facility] Hib-HbOC Unknown [facility]pleted [facility] Hib-HbOC Unknown [facility]pleted [facility] Hib-HbOC Unknown Completed [facility] HPV Unknown [facility]pleted [facility] HPV Unknown [facility]pleted [facility] HPV Unknown Completed [facility] Meningococcal Unknown Completed [facility] (groups A, C, Y and Branc h W-135) conjugate vaccine (MCV4P) MMR Unknown Completed [facility] MMR Unknown Completed [facility] Poliovirus, Live, Unknown Completed [facility] it[facility] of Oral, Trivalent [facility] Poliovirus, Live, Unknown Completed [facility] ity of Oral, Trivalent [facility] Poliovirus, Live, Unknown Completed [facility] it[facility] of Oral, Trivalent [facility] Poliovirus, Live, Unknown Completed [facility] ity of Oral, Trivalent [facility] Tetanus/Diptheria Unknown Completed Univers ity [facility] TDAP Unknown Completed [facility] Varicella Unknown Completed [facility] (varivax[place] [place] [facility] pox) [facility] Varicella Unknown Completed [facility] (varivax[facility] [place] [facility] pox) [facility] SARS-COV-2 COVID-19 Unknown Completed Unive rsity of PFIZER VACCINE [facility] SARS-COV-2 COVID-19 Unknown Completed Unive rsity of PFIZER VACCINE [facility] DTP Unknown Completed [facility] DTP Unknown Completed [facility] DTP Unknown Completed [facility] DTP Unknown Completed [facility] DTaP, Unspecified Unknown Completed [facility] it[facility] of Formulation [facility] Influenza Virus Unknown Completed Universit y of Vaccine Quad .5 mL [facility] 6+ MO Branch (FLUZONE/FLULAVAL/FL UARIX) Hep B, Unspecified Unknown Completed Univer sity of Formulation [facility] HEPATITIS A Unknown Completed [facility] HEPATITIS A Unknown Completed [facility] Hep B, Unspecified Unknown Completed Univer sity of Formulation [facility] Hep B, Adol or Pedi Unknown Completed Unive rsity of Dosage [facility] Hep B, Adol or Pedi Unknown Completed Unive rsity of Dosage [facility] Hep B, Adol or Pedi Unknown Completed Unive rsity of Dosage [facility] Heamophilus Unknown Completed [facility] Influenza B [facility] Heamophilus Unknown Completed [facility] Influenza B [facility] Heamophilus Unknown Completed [facility] Influenza B [facility] Heamophilus Unknown Completed [facility] Influenza [facility] Hib-HbOC Unknown [facility]pleted [facility] Hib-HbOC Unknown Completed [facility] Hib-HbOC Unknown Completed [facility] Hib-HbOC Unknown [facility]pleted [facility] HPV Unknown Completed [facility] HPV Unknown [facility]pleted [facility] HPV Unknown Completed [facility] Meningococcal Unknown Completed [facility] (groups A, C, Y and Branc h W-135) conjugate vaccine (MCV4P) MMR Unknown Completed [facility] MMR Unknown Completed [facility] Poliovirus, Live, Unknown Completed Univers ity of Oral, Trivalent [facility] Poliovirus, Live, Unknown Completed Univers ity of Oral, Trivalent [facility] Poliovirus, Live, Unknown Completed Univers ity of Oral, Trivalent [facility] Poliovirus, Live, Unknown Completed Univers ity of Oral, Trivalent [facility] Tetanus/Diptheria Unknown Completed Univers ity [facility] TDAP Unknown Completed [facility] Varicella Unknown Completed [facility] (varivax[facility] [place] [facility] pox) [facility] Varicella Unknown Completed [facility] (varivax[facility] [place] [facility] pox) [facility] SARS-COV-2 COVID-19 Unknown Completed Unive rsity of PFIZER VACCINE [facility] SARS-COV-2 COVID-19 Unknown Completed Unive rsity of PFIZER VACCINE [facility] DTP Unknown Completed [facility] DTP Unknown Completed [facility] DTP Unknown Completed [facility] DTP Unknown Completed [facility] DTaP, Unspecified Unknown Completed [facility] of Formulation [facility] Influenza Virus Unknown Completed Universit y of Vaccine Quad .5 mL [facility] 6+ MO Branch (FLUZONE/FLULAVAL/FL UARIX) Hep B, Unspecified Unknown Completed Univer sity of Formulation [facility] HEPATITIS A Unknown Completed [facility] HEPATITIS A Unknown Completed [facility] Hep B, Unspecified Unknown Completed Univer sity of Formulation [facility] Hep B, Adol or Pedi Unknown Completed Unive rsity of Dosage [facility] Hep B, Adol or Pedi Unknown Completed Unive rsity of Dosage [facility] Hep B, Adol or Pedi Unknown Completed Unive rsity of Dosage [facility] Heamophilus Unknown Completed [facility] Heamophilus Unknown Completed [facility] Heamophilus Unknown Completed [facility] Influenza [facility] Heamophilus Unknown Completed [facility] Hib-HbOC Unknown Completed [facility] Hib-HbOC Unknown Completed [facility] Hib-HbOC Unknown Completed [facility] Hib-HbOC Unknown Completed [facility] HPV Unknown Completed [facility] HPV Unknown [facility]pleted [facility] HPV Unknown Completed [facility] Meningococcal Unknown Completed [facility] (groups A, C, Y and Branc h W-135) conjugate vaccine (MCV4P) MMR Unknown Completed [facility] MMR Unknown Completed [facility] Poliovirus, Live, Unknown Completed [facility] of Oral, Trivalent [facility] Poliovirus, Live, Unknown Completed [facility] ity of Oral, Trivalent [facility] Poliovirus, Live, Unknown Completed [facility] ity of Oral, Trivalent [facility] Poliovirus, Live, Unknown Completed Univers ity of Oral, Trivalent [facility] Tetanus/Diptheria Unknown Completed Univers ity [facility] TDAP Unknown Completed [facility] Varicella Unknown Completed [facility] (varivax)([place] [place] [facility] pox) [facility] Varicella Unknown Completed [facility] (varivax)([facility]icken [place] [facility] pox) [facility] SARS-COV-2 COVID-19 Unknown Completed Unive rsity of PFIZER VACCINE [facility] SARS-COV-2 COVID-19 Unknown Completed Unive rsity of PFIZER VACCINE [facility] DTP Unknown Completed [facility] DTP Unknown Completed [facility] DTP Unknown Completed [facility] DTP Unknown Completed [facility] DTaP, Unspecified Unknown Completed [facility] of Formulation [facility] Influenza Virus Unknown Completed Universit y of Vaccine Quad .5 mL [facility] 6+ MO Branch (FLUZONE/FLULAVAL/FL UARIX) Hep B, Unspecified Unknown Completed Univer sity of Formulation [facility] HEPATITIS A Unknown Completed [facility] HEPATITIS A Unknown Completed [facility] Hep B, Unspecified Unknown Completed Univer sity of Formulation [facility] Hep B, Adol or Pedi Unknown Completed Unive rsity of Dosage [facility] Hep B, Adol or Pedi Unknown Completed Unive rsity of Dosage [facility] Hep B, Adol or Pedi Unknown Completed Unive rsity of Dosage [facility] Heamophilus Unknown Completed [facility] Influenza [facility] Heamophilus Unknown Completed [facility] Influenza [facility] Heamophilus Unknown Completed [facility] Influenza [facility] Heamophilus Unknown Completed [facility] Influenza [facility] Hib-HbOC Unknown Completed [facility] Hib-HbOC Unknown Completed [facility] Hib-HbOC Unknown Completed [facility] Hib[facility]HbOC Unknown Completed [facility] HPV Unknown [facility]pleted [facility] HPV Unknown [facility]pleted [facility] HPV Unknown Completed [facility] Meningococcal Unknown Completed [facility] Polysaccharide [facility] (groups A, C, Y and Branc h W-135) conjugate vaccine (MCV4P) MMR Unknown Completed [facility] MMR Unknown Completed [facility] Poliovirus, Live, Unknown Completed Univers ity of Oral, Trivalent [facility] Poliovirus, Live, Unknown Completed Univers ity of Oral, Trivalent [facility] Poliovirus, Live, Unknown Completed Univers ity of Oral, Trivalent [facility] Poliovirus, Live, Unknown Completed Univers ity of Oral, Trivalent [facility] Tetanus/Diptheria Unknown Completed Univers ity [facility] TDAP Unknown Completed [facility] Varicella Unknown Completed [facility] (varivax[place] [place] [facility] pox) [facility] Varicella Unknown Completed [facility] (varivax)(chicken [place] [facility] pox) Branch SARS-COV-2 COVID-19 Unknown Completed Unive rsity of PFIZER VACCINE [facility] SARS-COV-2 COVID-19 Unknown Completed Unive rsity of PFIZER VACCINE [facility] DTP Unknown Completed [facility] DTP Unknown Completed [facility] DTP Unknown Completed [facility] DTP Unknown Completed [facility] DTaP, Unspecified Unknown Completed [facility] of Formulation [facility] Influenza Virus Unknown Completed Universit y of Vaccine Quad .5 mL [facility] 6+ MO Branch (FLUZONE/FLULAVAL/FL UARIX) Hep B, Unspecified Unknown Completed Univer sity of Formulation [facility] HEPATITIS A Unknown Completed [facility] HEPATITIS A Unknown Completed [facility] Hep B, Unspecified Unknown Completed Univer sity of [facility] Hep B, Adol or Pedi Unknown Completed Unive rsity of Dosage [facility] Hep B, Adol or Pedi Unknown Completed Unive rsity of Dosage [facility] Hep B, Adol or Pedi Unknown Completed Unive rsity of Dosage [facility] Heamophilus Unknown Completed [facility] Influenza [facility] Heamophilus Unknown Completed [facility] Influenza [facility] Heamophilus Unknown Completed [facility] Influenza [facility] Heamophilus Unknown Completed [facility] Influenza [facility] Hib-HbOC Unknown Completed [facility] Hib-HbOC Unknown Completed [facility] Hib-HbOC Unknown Completed [facility] Hib-HbOC Unknown Completed [facility] HPV Unknown [facility]pleted [facility] HPV Unknown Completed [facility] HPV Unknown Completed [facility] Meningococcal Unknown Completed [facility] (groups A, C, Y and Branc h W-135) conjugate vaccine (MCV4P) MMR Unknown Completed [facility] MMR Unknown Completed [facility] Poliovirus, Live, Unknown Completed Univers [facility]y of Oral, Trivalent [facility] Poliovirus, Live, Unknown Completed Univers ity of Oral, Trivalent [facility] Poliovirus, Live, Unknown Completed Univers ity of Oral, Trivalent [facility] Poliovirus, Live, Unknown Completed Univers ity of Oral, Trivalent [facility] Tetanus/Diptheria Unknown Completed Univers ity [facility] TDAP Unknown Completed [facility] Varicella Unknown Completed [facility] (varivax)([place]icken [place] [facility] pox) Branch Varicella Unknown Completed [facility] (varivax)(chicken [place] [facility] pox) Branch SARS-COV-2 COVID-19 Unknown Completed Unive rsity of PFIZER VACCINE [facility] SARS-COV-2 COVID-19 Unknown Completed Unive rsity of PFIZER VACCINE [facility] DTP Unknown Completed [facility] DTP Unknown Completed [facility] DTP Unknown Completed [facility] DTP Unknown Completed [facility] DTaP, Unspecified Unknown Completed [facility] it[facility] of Formulation [facility] Influenza Virus Unknown Completed Universit y of Vaccine Quad .5 mL [facility] 6+ MO Branch (FLUZONE/FLULAVAL/FL UARIX) Hep B, Unspecified Unknown Completed Univer sity of Formulation [facility] HEPATITIS A Unknown Completed [facility] HEPATITIS A Unknown Completed [facility] Hep B, Unspecified Unknown Completed Univer sity of [facility] Hep B, Adol or Pedi Unknown Completed Unive rsity of Dosage [facility] Hep B, Adol or Pedi Unknown Completed Unive rsity of Dosage [facility] Hep B, Adol or Pedi Unknown Completed Unive rsity of Dosage [facility] Heamophilus Unknown Completed [facility] Influenza [facility] Heamophilus Unknown Completed [facility] Influenza B [facility] Heamophilus Unknown Completed [facility] Influenza B [facility] Heamophilus Unknown Completed [facility] Influenza B [facility] Hib-HbOC Unknown [facility]pleted [facility] Hib-HbOC Unknown Completed [facility] Hib-HbOC Unknown Completed [facility] Hib-HbOC Unknown Completed [facility] HPV Unknown [facility]pleted [facility] HPV Unknown Completed [facility] HPV Unknown Completed [facility] Meningococcal Unknown Completed [facility] (groups A, C, Y and Branc h W-135) conjugate vaccine (MCV4P) MMR Unknown Completed [facility] MMR Unknown Completed [facility] Poliovirus, Live, Unknown Completed Univers ity of Oral, Trivalent [facility] Poliovirus, Live, Unknown Completed Univers ity of Oral, Trivalent [facility] Poliovirus, Live, Unknown Completed Univers ity of Oral, Trivalent [facility] Poliovirus, Live, Unknown Completed Univers ity of Oral, Trivalent [facility] Tetanus/Diptheria Unknown Completed Univers ity [facility] TDAP Unknown Completed [facility] Varicella Unknown Completed [facility] (varivax)(chicken [place] [facility] pox) [place] Varicella Unknown Completed [facility] (varivax)(chicken [place] [facility] pox) [place] PFIZER COVID-19 MRNA Unknown [address]pleted [facility] PFIZER COVID-[address] [facility] PFIZER COVID-19 MRNA [address] [facility] PFIZER COVID-19 MRNA Unknown [address]pleted [facility] PFIZER COVID-19 MRNA Unknown Completed [facility] PFIZER COVID[facility]19 MRNA Unknown [address]pleted [facility] PFIZER COVID-19 MRNA [address]pleted [facility] PFIZER COVID-[address] [facility] Vital Signs Vital Name Observation Time Observation Value Comments Source Systolic blood 2023-07-05 114 mm[Hg] [facility] pressure 17:46:17 [facility] Diastolic blood 2023-07-05 94 mm[Hg] [facility] pressure 17:46:17 [facility] Heart rate 2023-07-05 93 /min [facility] 17:46:17 [facility] Body temperature 2023-07-05 37 [facility] 17:46:17 [facility] Respiratory rate 2023-07-05 16 /min University 17:46:17 [facility] Body height 2023-07-05 160 cm University 17:44:00 [facility] Body weight 2023-07-05 67.586 kg University 17:44:00 [facility] BMI 2023-07-05 26.39 kg/m2 University of 17:44:00 [facility] Oxygen saturation 2023-07-05 100 /min [facility] Arterial blood 17:44:00 [facility] by Pulse oximetry [place] Systolic blood 2023-07-01 116 mm[Hg] [facility] pressure 16:23:00 [facility] Diastolic blood 2023-07-01 76 mm[Hg] [facility] f pressure 16:23:00 [facility] Heart rate 2023-07-01 66 /min [facility] of 16:23:00 [facility] Body temperature 2023-07-01 36.28 Alisha [facility] of 16:23:00 [facility] Respiratory rate 2023-07-01 18 /min [facility] of 16:23:00 [facility] Body height 2023-07-01 160 cm University of 16:23:00 [facility] Body weight 2023-07-01 70.852 kg University of 16:23:00 [facility] BMI 2023-07-01 27.67 kg/m2 University of 16:23:00 [facility] Oxygen saturation 2023-07-01 100 /min [facility] in Arterial blood 16:23:00 [place] [facility] P[facility] oxim[facility] Systolic blood 2023-06-29 120 mm[Hg] [facility] pressure 18:40:00 [facility] Diastolic blood 2023-06-29 82 mm[Hg] [facility] pressure 18:40:00 [facility] Heart rate 2023-06-29 81 /min [facility] of 18:40:00 [facility] Body temperature 2023-06-29 36.5 Alisha [facility] of 18:40:00 [facility] Respiratory rate 2023-06-29 18 /min University of 18:40:00 [facility] Body height 2023-06-29 160 cm University of 18:40:00 [facility] Body weight 2023-06-29 67.586 kg University of 18:40:00 [facility] BMI 2023-06-29 26.39 kg/m2 University of 18:40:00 [facility] Oxygen saturation 2023-06-29 100 /min [facility] in Arterial blood 18:40:00 [place] [facility] Systolic blood 2023-06-10 133 mm[Hg] [facility] pressure 15:38:00 [facility] Diastolic blood 2023-06-10 78 mm[Hg] [facility] o f pressure 15:38:00 [facility] Heart rate 2023-06-10 90 /min [facility] of 15:38:00 [facility] Body height 2023-06-10 160 cm University of 15:38:00 [facility] Body weight 2023-06-10 69.627 kg University of 15:38:00 [facility] BMI 2023-06-10 27.19 kg/m2 University of 15:38:00 [facility] Oxygen saturation 2023-06-10 99 /min [facility] of in Arterial blood 15:38:00 [facility] shanice by Pulse oximetry Branch Systolic blood 2023-03-02 133 mm[Hg] [facility] pressure 17:25:00 [facility] Diastolic blood 2023-03-02 79 mm[Hg] [facility] o f pressure 17:25:00 [facility] Heart rate 2023-03-02 86 /min [facility] of 17:25:00 [facility] Body temperature 2023-03-02 36.67 Alisha [facility] of 17:25:00 [facility] Respiratory rate 2023-03-02 16 /min University of 17:25:00 [facility] Body height 2023-03-02 160 cm University of 17:25: [facility] Body weight 2023-03-02 69.627 kg University of 17:25:00 [facility] BMI 2023-03-02 27.19 kg/m2 University of 17:25:00 [facility] Oxygen saturation 2023-03-02 97 /min [facility] of in Arterial blood 17:25:00 [facility] shanice by Pulse oximetry Branch Systolic blood 2023-01-21 156 mm[Hg] [facility] pressure 23:13:33 [facility] Diastolic blood 2023-01-21 100 mm[Hg] [facility] o f pressure 23:13:33 [facility] Heart rate 2023-01-21 88 /min University of 23:13:33 [facility] Respiratory rate 2023-01-21 20 /min University of 23:13:33 [facility] Oxygen saturation 2023-01-21 100 /min [facility] of in Arterial blood 23:13:33 [facility] shanice by Pulse oximetry Branch Body height 2023-01-21 160 cm University of 18:44:00 [facility] Body weight 2023-01-21 69.854 kg University of 18:44:00 [facility] BMI 2023-01-21 27.28 kg/m2 University of 18:44:00 [facility] Body temperature 2023-01-21 37.11 Alisha [facility] of 18:43:00 [facility] Systolic blood 2023-01-15 121 mm[Hg] [facility] pressure 18:01:00 [facility] Diastolic blood 2023-01-15 81 mm[Hg] [facility] o f pressure 18:01:00 [facility] Heart rate 2023-01-15 83 /min [facility] of 18:01:00 [facility] Respiratory rate 2023-01-15 16 /min [facility] of 18:01:00 [facility] Oxygen saturation 2023-01-15 97 /min [facility] in Arterial blood 18:01:00 [place] [facility] P[facility]xim[facility] Body temperature 2023-01-15 36.89 [facility]isha [facility] of 14:55:07 [facility] Body weight 2023-01-15 68.04 kg University of 13:47:00 [facility] BMI 2023-01-15 26.57 kg/m2 University of 13:47:00 [facility] Systolic blood 2023-01-15 131 mm[Hg] [facility] pressure 10:13:00 [facility] Diastolic blood 2023-01-15 83 mm[Hg] [facility] pressure 10:13:00 [facility] Heart rate 2023-01-15 104 /min University of 10:13:00 [facility] Body temperature 2023-01-15 36.94 Alisha [facility] of 10:13:00 [facility] Respiratory rate 2023-01-15 21 /min University of 10:13:00 [facility] Body height 2023-01-15 160 cm University of 10:13:00 [facility] Body weight 2023-01-15 68.04 kg University of 10:13:00 [facility] BMI 2023-01-15 26.57 kg/m2 University of 10:13:00 [facility] Oxygen saturation 2023-01-15 100 /min [facility] of in Arterial blood 10:13:00 [facility]ice by Pulse oximetry Branch Systolic blood 2022-12-31 128 mm[Hg] [facility] pressure 05:09:00 [facility] Diastolic blood 2022-12-31 79 mm[Hg] [facility] o f pressure 05:09:00 [facility] Heart rate 2022-12-31 71 /min University of 05:09:00 [facility] Body temperature 2022-12-31 36.78 Alisha [facility] of 05:09:00 [facility] Respiratory rate 2022-12-31 16 /min University of 05:09:00 [facility] Body height 2022-12-31 160 cm University of 05:09:00 [facility] Body weight 2022-12-31 67.586 kg University of 05:09:00 [facility] BMI 2022-12-31 26.39 kg/m2 University of 05:09:00 [facility] Oxygen saturation 2022-12-31 100 /min [facility] of in Arterial blood 05:09:00 [facility] by Pulse oximetry Branch Systolic blood 2022-12-22 132 mm[Hg] [facility] pressure 13:18:00 [facility] Diastolic blood 2022-12-22 92 mm[Hg] [facility] o [facility] pressure 13:18:00 [facility] Heart rate 2022-12-22 78 /min University of 13:18:00 [facility] Respiratory rate 2022-12-22 18 /min University of 13:18:00 [facility] Body height 2022-12-22 160 cm University of 13:18:00 [facility] Body weight 2022-12-22 69.4 kg University of 13:18:00 [facility] BMI 2022-12-22 27.10 kg/m2 University of 13:18:00 [facility] Systolic blood 2022-12-19 102 mm[Hg] [facility] pressure 10:00:00 [facility] Diastolic blood 2022-12-19 60 mm[Hg] [facility] pressure 10:00:00 [facility] Heart rate 2022-12-19 85 /min University of 10:00:00 [facility] Respiratory rate 2022-12-19 13 /min University of 10:00:00 [facility] Oxygen saturation 2022-12-19 96 /min [facility] in Arterial blood 10:00:00 [facility] by Pulse oximetry [place] Body temperature 2022-12-19 36.28 [facility]isha [facility] of 07:30:00 [facility] Body height 2022-12-19 160 cm University of 07:30:00 [facility] Body weight 2022-12-19 67.132 kg University of 07:30: [facility] BMI 2022-12-19 26.22 kg/m2 University of 07:30:00 [facility] Systolic blood 2022-12-15 125 mm[Hg] [facility] pressure 15:48:00 [facility] Diastolic blood 2022-12-15 77 mm[Hg] [facility] pressure 15:48:00 [facility] Heart rate 2022-12-15 75 /min [facility] 15:48:00 [place] [facility] Body height 2022-12-15 160 cm [facility] 15:48:00 [facility] Body weight 2022-12-15 68.448 kg University of 15:48:00 [facility] BMI 2022-12-15 26.73 kg/m2 University of 15:48:00 [facility] Oxygen saturation 2022-12-15 98 /min [facility] in Arterial blood 15:48:00 [place] [facility] Systolic blood 2022-12-14 132 mm[Hg] [facility] pressure 08:04:00 [facility] Diastolic blood 2022-12-14 87 mm[Hg] [facility] pressure 08:04:00 [facility] Heart rate 2022-12-14 83 /min [facility] of 08:04:00 [facility] Body temperature 2022-12-14 36.67 Alisha [facility] of 08:04:00 [facility] Respiratory rate 2022-12-14 20 /min [facility] of 08:04:00 [facility] Body height 2022-12-14 160 cm University of 08:04:00 [facility] Body weight 2022-12-14 67.132 kg University of 08:04:00 [facility] BMI 2022-12-14 26.22 kg/m2 University of 08:04:00 [facility] Oxygen saturation 2022-12-14 97 /min [facility] in Arterial blood 08:04:00 [facility] by Pulse oximetry Branch Systolic blood 2022-11-03 143 mm[Hg] [facility] pressure 17:45:00 [facility] Diastolic blood 2022-11-03 89 mm[Hg] [facility] pressure 17:45:00 [facility] Heart rate 2022-11-03 89 /min [facility] of 17:45:00 [facility] Respiratory rate 2022-11-03 16 /min [facility] of 17:45:00 [facility] Oxygen saturation 2022-11-03 99 /min [facility] in Arterial blood 17:45:00 [place] [facility] P[facility] o[facility] Body temperature 2022-11-03 36.61 Alisha [facility] 14:13:00 [facility] Body height 2022-11-03 160 cm University of 14:13:00 [facility] Body weight 2022-11-03 68.04 kg University of 14:13:00 [facility] BMI 2022-11-03 26.57 kg/m2 University of 14:13:00 [facility] Systolic blood 2022-10-28 115 mm[Hg] [facility] pressure 21:02:00 [facility] Diastolic blood 2022-10-28 69 mm[Hg] [facility] pressure 21:02:00 [facility] Heart rate 2022-10-28 93 /min University of 21:02:00 [facility] Body temperature 2022-10-28 36.89 Alisha [facility] of 21:02:00 [facility] Body height 2022-10-28 160 cm University of 21:02:00 [facility] Body weight 2022-10-28 70.308 kg University of 21:02:00 [facility] BMI 2022-10-28 27.46 kg/m2 University of 21:02:00 [facility] Oxygen saturation 2022-10-28 100 /min [facility] in Arterial blood 21:02:00 [facility] by Pulse oximetry Branch Systolic blood 2022-10-13 133 mm[Hg] [facility] pressure 07:58:00 [facility] Diastolic blood 2022-10-13 72 mm[Hg] [facility] pressure 07:58:00 [facility] Heart rate 2022-10-13 109 /min [facility] of 07:58:00 [facility] Body temperature 2022-10-13 36.78 Alisha [facility] of 07:58:00 [facility] Respiratory rate 2022-10-13 16 /min [facility] of 07:58:00 [facility] Body weight 2022-10-13 67.132 kg University of 07:58:00 [facility] BMI 2022-10-13 26.22 kg/m2 University of 07:58:00 [facility] Oxygen saturation 2022-10-13 99 /min [facility] in Arterial blood 07:58:00 [place] [facility] P[facility] o[facility] Systolic blood 2022-10-10 120 mm[Hg] [facility] pressure 00:44:00 [facility] Diastolic blood 2022-10-10 82 mm[Hg] [facility] pressure 00:44:00 [facility] Heart rate 2022-10-10 110 /min University of 00:44:00 [facility] Body temperature 2022-10-10 36.33 Alisha [facility] of 00:44:00 [facility] Respiratory rate 2022-10-10 18 /min [facility] of 00:44:00 [facility] Body height 2022-10-10 160 cm University of 00:44:00 [facility] Body weight 2022-10-10 67.132 kg University of 00:44:00 [facility] BMI 2022-10-10 26.22 kg/m2 University of 00:44:00 [facility] Oxygen saturation 2022-10-10 99 /min [facility] in Arterial blood 00:44:00 [place] [facility] P[facility] o[facility] Systolic blood 2022-09-10 165 mm[Hg] [facility] pressure 00:13:00 [facility] Diastolic blood 2022-09-10 99 mm[Hg] [facility] o [facility] pressure 00:13:00 [facility] Heart rate 2022-09-10 125 /min University of :13:00 [facility] Body temperature 2022-09-10 36.61 Alisha [facility] of 00:13:00 [facility] Respiratory rate 2022-09-10 20 /min University of 00:13:00 [facility] Body weight 2022-09-10 65.772 kg University of :13:00 [facility] BMI 2022-09-10 25.69 kg/m2 University of 00:13:00 [facility] Oxygen saturation 2022-09-10 99 /min [facility] in Arterial blood 00:13:00 [place] [facility] Pulse oxim[facility] Systolic blood 2022-08-18 134 mm[Hg] [facility] pressure 22:36:00 [facility] Diastolic blood 2022-08-18 86 mm[Hg] [facility] o [facility] pressure 22:36:00 [facility] Heart rate 2022-08-18 100 /min University of 22:36:00 [facility] Body temperature 2022-08-18 37.11 Alisha [facility] of 22:36:00 [facility] Respiratory rate 2022-08-18 20 /min University of 22:36:00 [facility] Body height 2022-08-18 160 cm University of 22:36:00 [facility] Body weight 2022-08-18 67.132 kg University of 22:36:00 [facility] BMI 2022-08-18 26.22 kg/m2 University of 22:36:00 [facility] Oxygen saturation 2022-08-18 100 /min [facility] in Arterial blood 22:36:00 [place] [facility] P[facility] Systolic blood 2022-01-20 123 mm[Hg] [facility] pressure 18:11:00 [facility] Diastolic blood 2022-01-20 85 mm[Hg] [facility] pressure 18:11:00 Hospital Heart rate 2022-01-20 88 /min [facility] 18:11:00 Hospital Body temperature 2022-01-20 36.28 Alisha [facility] 18:11:00 Hospital Respiratory rate 2022-01-20 20 /min [facility] 18:11:00 Hospital Body height 2022-01-20 160 cm [facility] 18:11:00 Hospital Body weight 2022-01-20 66.225 kg [facility] 18:11:00 [facility] BMI 2022-01-20 25.86 kg/m2 [facility] 18:11:00 Hospital Oxygen saturation 2022-01-20 99 /min [facility] in Arterial blood 18:11:00 [facility] by Pulse [...] Systolic blood 2020-01-31 108 mm[Hg] [facility] pressure 08:57:00 Position: Sitting Diastolic blood 2020-01-31 76 mm[Hg] [facility] 08:57:00 Position: Sitting Body height 2020-01-31 67 [in_us] [facility] 08:57:00 Weight 2020-01-31 159.375 [lb_av] [facility] 08:57:00 Body mass index 2020-01-31 24.96 kg/m2 [facility] (BMI) [Ratio] 08:57:00 Body temperature 2020-01-31 97.9 [degF] Method: Oral [facility] 08:57:00 Heart Rate 2020-01-31 78 /min [facility] 08:57:00 BP Systolic 2019-06-28 130 mm[Hg] [facility] 16:14:00 Position: Sitting BP Diastolic 2019-06-28 82 mm[Hg] [facility] 16:14:00 Position: Sitting Height 2019-06-28 67 [...] Date / Time Performing Clinician Source Performed CBC WITH DIFF 2023-07-05 18:17:00 Donta Qiu [facility] POCT TEST 2023-07-05 18:05:00 Donta Qiu [facility] CONSENT/REFUSAL FOR 2023-07-05 17:29:05 Doctor Unassigned, No [facility] [place] [facility] Name Medical [facility] CT ABDOMEN PELVIS W 2023-01-21 21:07:22 Joe Abad [facility] CONTRAST Medical Branch POCT TEST 2023-01-21 19:34:00 Gutierrez Moncada [facility] versity [facility] Medical Branch LIPASE 2023-01-21 19:32:00 Gutierrez Moncada [facility] TROPONIN I 2023-01-21 19:32:00 Joe Abad [place] [facility] COMP. METABOLIC PANEL 2023-01-21 19:32:00 Gutierrez Moncada [facility] ([id number]) Medical Branch CBC WITH DIFF 2023-01-21 19:32:00 Gutierrez Moncada [facility] URINALYSIS 2023-01-21 19:32:00 Gutierrez Moncada [facility] CONSENT/REFUSAL FOR 2023-01-21 18:36:13 Doctor Unassigned, No [facility] [place] [facility] Name Medical Branch LIPASE 2023-01-15 14:47:00 Brant Lal [facility] COMP. METABOLIC PANEL 2023-01-15 14:47:00 Brant Lal [facility] ([id number]) Medical Branch CBC WITH DIFF 2023-01-15 14:47:00 Brant Lal [facility] CONSENT/REFUSAL FOR 2023-01-15 13:41:26 Doctor Unassigned, No [facility] [place] [facility] Name Medical Branch CONSENT/REFUSAL FOR 2023-01-15 10:06:16 Doctor Unassigned, No [facility] [place] [facility]RE[facility] Name Medical Branch EXTERNAL PROVIDER 2023-01-07 05:01:00 Doctor Unassigned, No [facility] [place] RECORDS Name Medical Branch EXTERNAL PROVIDER 2023-01-04 05:01:00 Doctor Unassigned, No [facility] [place] RECORDS Name [facility] CONSENT/REFUSAL FOR 2022-12-31 05:04:15 Doctor Unassigned, No [facility] [place] [facility] Name [facility] CT ANGIOGRAPHY 2022-12-30 17:15:00 Amrit Ma [facility] CORONARIES WITHOUT Medical Bran h CARDIAC CALCIUM SCORING HB CREATININE 2022-12-30 16:24:00 Amrit Ma [facility] SERUM/BLOOD FOR IMAGING Medical Branch CONSENT/REFUSAL FOR 2022-12-30 15:17:01 Doctor Unassigned, No Un [facility] DIAGNOSIS AND TREATMENT Name Medical Branch EXTERNAL PROVIDER 2022-12-29 05:01:00 Doctor Unassigned, No [facility] RECORDS Name Medical Branch AUTHORIZATION TO RELEASE 2022-12-21 05:01:00 Doctor Unassigned, No [facility] PHI TO [facility] Name Medical Branch CT ANGIOGRAM CHEST 2022-12-19 09:28:16 Miladys Medina [facility] TROPONIN I 2022-12-19 08:40:00 Miladys Medina [facility] D-DIMER 2022-12-19 08:40:00 Miladys Medina [facility] CONSENT/REFUSAL FOR 2022-12-19 07:30:10 [facility] D-DIMER 2022-12-14 10:47:00 Miladys Medina [facility] TROPONIN I 2022-12-14 10:16:00 Miladys Medina [facility] LIPASE 2022-12-14 08:31:00 Miladys Medina [facility] TROPONIN I 2022-12-14 08:31:00 Miladys Medina [facility] COMP. METABOLIC PANEL 2022-12-14 08:31:00 Miladys Medina [facility] ([id number]) Medical Branch CBC WITH DIFF 2022-12-14 08:31:00 Miladys Medina [facility] THYROID STIMULATING 2022-12-14 08:31:00 Amrit Ma [facility] HORMONE Medical Branch NOTICE OF PRIVACY 2022-12-14 07:50:02 Doctor Unassigned, No [facility] PRACTICES Name Medical Branch CONSENT/REFUSAL FOR 2022-12-14 07:49:31 Doctor Unassigned, No [facility] [place] [facility] Name Medical Branch URINALYSIS 2022-11-03 15:27:00 Gaurang Dotson [facility] URINE DRUG ([id number]) 2022-11-03 15:27:00 Gaurang Dotson [facility] - COMPREHENSIVE DRUG Medical Bra nch SCREEN W/O REFLEX TEST, SERUM 2022-11-03 14:38:00 Gaurang Dotson [facility] COMP. METABOLIC PANEL 2022-11-03 14:38:00 Gaurang Dotson [facility] ([id number]) Medical [place] CBC WITH DIFF 2022-11-03 14:38:00 Gaurang Dotson [facility] D-DIMER 2022-11-03 14:38:00 Gaurang Dotson [facility] CONSENT/REFUSAL FOR 2022-11-03 14:04:36 Doctor Unassigned, No [facility] [place] [facility] TREAT[facility] Name Medical Branch CONSENT/REFUSAL FOR 2022-10-28 20:34:23 Doctor Unassigned, No [facility] [place] [facility] TREAT[facility] Name Medical Branch CONSENT/REFUSAL FOR 2022-10-13 07:49:25 Doctor Unassigned, No [facility] CONSENT/REFUSAL FOR 2022-10-10 00:16:57 Doctor Unassigned, No [facility] [place] [facility] MRI LUMBAR SPINE WO 2022-10-07 00:35:00 Jorge Luis Mcdonnell [facility] CONTRAST MRI CERVICAL SPINE WO 2022-10-07 00:22:00 Jorge Luis Mcdonnell [facility] CONTRAST CONSENT/REFUSAL FOR 2022-09-10 00:07:30 Doctor Unassigned, No [facility] [place] [facility] CONSENT/REFUSAL FOR 2022-08-18 22:20:24 Doctor Unassigned, No [facility] [place] [facility] CT SPINE EXTERNAL STUDY 2021-11-28 20:02:53 Jorge Luis Mcdonnell [facility] CT SPINE EXTERNAL STUDY 2021-11-28 19:57[facility] 2021-11-28 19:52:18 [facility] REFERRAL- 2021-11-21 05:01:00 Doctor Unassigned, Inez Sena [facility] REQUEST/RESPONSE Name Medical Branch MRI SPINE EXTERNAL STUDY 2021-10-09 18:17:21 [facility] [QL] CBC (INCLUDES 2020-02-16 00:00:00 [facility] [...] [facility]ician [facility] Transvaginal and Pelvic Doppler 69271 History of Dental [facility] surgery History of [facility] section low transverse Plan of Care Planned Activity Planned Date Details Comments Source Future Scheduled 2023-07-01 Pneumococcal Vaccine: [facility] Test 21:11:54 Pediatrics (0 to 5 Years) and At-Risk Patients (6 to 64 Years) (1 - PCV) [code = Pneumococcal Vaccine: Pediatrics (0 to 5 Years) and At-Risk Patients (6 to 64 Years) (1 - PCV)] Future Scheduled 2023-07-01 Hepatitis C screening [facility] Test 21:11:54 (procedure) [code = 007222454] Future Scheduled 2023-07-01 Screening for [facility] Test 21:11:54 malignant neoplasm of cervix (procedure) [code = 248199964] Future Scheduled 2023-07-01 COVID-19 VACCINE (3 - [facility] Test 21:11:54 season) [code = COVID-19 VACCINE ( season)] Future Scheduled 2023-07-01 INFLUENZA VACCINE (#1) [facility] Test 21:11:54 [code = INFLUENZA VACCINE (#1)] Future Scheduled 2023-07-01 Pneumococcal Vaccine: [facility] Test 21:11:54 Pediatrics (0 to 5 Years) and At-Risk Patients (6 to 64 Years) (1 - PCV) [code = Pneumococcal Vaccine: Pediatrics (0 to 5 Years) and At-Risk Patients (6 to 64 Years) (1 - PCV)] Future Scheduled 2023-07-01 Hepatitis C screening [facility] Test 21:11:54 (procedure) [code = 797996309] Future Scheduled 2023-07-01 Screening for [facility] Test 21:11:54 malignant neoplasm of cervix (procedure) [code = 818991064] Future Scheduled 2023-07-01 COVID-19 VACCINE (3 - [facility] Test 21:11:54 ) [code = COVID-19 VACCINE ( season)] Future Scheduled 2023-07-01 INFLUENZA VACCINE (#1) [facility] Test 21:11:54 [code = INFLUENZA VACCINE (#1)] Future Scheduled 2023-06-18 Pneumococcal Vaccine: [facility] Test 03:36:13 Pediatrics (0 to 5 Years) and At-Risk Patients (6 to 64 Years) (1 - PCV) [code = Pneumococcal Vaccine: Pediatrics (0 to 5 Years) and At-Risk Patients (6 to 64 Years) (1 - PCV)] Future Scheduled 2023-06-18 Hepatitis C screening [facility] Test 03:36:13 (procedure) [code = 724489002] Future Scheduled 2023-06-18 Screening for [facility] Test 03:36:13 malignant neoplasm of cervix (procedure) [code = 176499043] Future Scheduled 2023-06-18 COVID-19 VACCINE (3 - [facility] Test 03:36:13 season) [code = COVID-19 VACCINE (3 - season)] Future Scheduled 2023-06-18 INFLUENZA VACCINE (#1) [facility] Test 03:36:13 [code = INFLUENZA VACCINE (#1)] Future Scheduled 2023-06-18 RSV VACCINES > 60 YR Met [facility] Test 03:36:13 (1 - 1-dose 60+ series) [code = RSV VACCINES > 60 YR (1 - 1-dose 60+ series)] Future Scheduled 2023-06-12 Pneumococcal Vaccine: [facility] Test 08:20:18 Pediatrics (0 to 5 Years) and At-Risk Patients (6 to 64 Years) (1 - PCV) [code = Pneumococcal Vaccine: Pediatrics (0 to 5 Years) and At-Risk Patients (6 to 64 Years) (1 - PCV)] Future Scheduled 2023-06-12 Hepatitis C screening [facility] Test 08:20:18 (procedure) [code = 856589233] Future Scheduled 2023-06-12 Screening for [facility] Test 08:20:18 malignant neoplasm of cervix (procedure) [code = 382203164] Future Scheduled 2023-06-12 COVID-19 VACCINE (3 - [facility] Test 08:20:18 Pfizer series) [code = COVID-19 VACCINE (3 - Pfizer series)] Future Scheduled 2023-06-12 INFLUENZA VACCINE (#1) [facility] Test 08:20:18 [code = INFLUENZA VACCINE (#1)] Future Scheduled 2023-02-19 Pneumococcal Vaccine: [facility] Test 07:49:13 Pediatrics (0 to 5 Years) and At-Risk Patients (6 to 64 Years) (1 - PCV) [code = Pneumococcal Vaccine: Pediatrics (0 to 5 Years) and At-Risk Patients (6 to 64 Years) (1 - PCV)] Future Scheduled 2023-02-19 Hepatitis C screening [facility] Test 07:49:13 (procedure) [code = 737674085] Future Scheduled 2023-02-19 Screening for [facility] Test 07:49:13 malignant neoplasm of cervix (procedure) [code = 246735576] Future Scheduled 2023-02-19 COVID-19 VACCINE (3 - [facility] Test 07:49:13 Pfizer series) [code = COVID-19 VACCINE (3 - Pfizer series)] Future Scheduled 2023-02-19 [facility] 07:49:13 [code = INFLUENZA VACCINE] Future Scheduled 2023-02-19 Pneumococcal Vaccine: [facility] Test 07:49:13 Pediatrics (0 to 5 Years) and At-Risk Patients (6 to 64 Years) (1 - PCV) [code = Pneumococcal Vaccine: Pediatrics (0 to 5 Years) and At-Risk Patients (6 to 64 Years) (1 - PCV)] Future Scheduled 2023-02-19 Hepatitis C screening [facility] Test 07:49:13 (procedure) [code = 888887624] Future Scheduled 2023-02-19 Screening for [facility] Test 07:49:13 malignant neoplasm of cervix (procedure) [code = 350264913] Future Scheduled 2023-02-19 COVID-19 VACCINE (3 - [facility] Test 07:49:13 Pfizer series) [code = COVID-19 VACCINE (3 - Pfizer series)] Future Scheduled 2023-02-19 [facility]ZA VACCINE [facility] Test 07:49:13 [code = INFLUENZA VACCINE] Future Scheduled 2023-02-19 Pneumococcal Vaccine: [facility] Test 07:49:13 Pediatrics (0 to 5 Years) and At-Risk Patients (6 to 64 Years) (1 - PCV) [code = Pneumococcal Vaccine: Pediatrics (0 to 5 Years) and At-Risk Patients (6 to 64 Years) (1 - PCV)] Future Scheduled 2023-02-19 Hepatitis C screening [facility] Test 07:49:13 (procedure) [code = 100893822] Future Scheduled 2023-02-19 Screening for [facility] Test 07:49:13 malignant neoplasm of cervix (procedure) [code = 416993814] Future Scheduled 2023-02-19 COVID-19 VACCINE (3 - [facility] Test 07:49:13 Pfizer series) [code = COVID-19 VACCINE (3 - Pfizer series)] Future Scheduled 2023-02-19 [facility]ZA VACCINE [facility] Test 07:49:13 [code = INFLUENZA VACCINE] Future Scheduled 2023-02-19 Pneumococcal Vaccine: [facility] Test 07:49:13 Pediatrics (0 to 5 Years) and At-Risk Patients (6 to 64 Years) (1 - PCV) [code = Pneumococcal Vaccine: Pediatrics (0 to 5 Years) and At-Risk Patients (6 to 64 Years) (1 - PCV)] Future Scheduled 2023-02-19 Hepatitis C screening [facility] Test 07:49:13 (procedure) [code = 495527194] Future Scheduled 2023-02-19 Screening for [facility] Test 07:49:13 malignant neoplasm of cervix (procedure) [code = 136974408] Future Scheduled 2023-02-19 COVID-19 VACCINE (3 - [facility] Test 07:49:13 Pfizer series) [code = COVID-19 VACCINE (3 - Pfizer series)] Future Scheduled 2023-02-19 [facility]ZA VACCINE [facility] Test 07:49:13 [code = INFLUENZA VACCINE] Future Scheduled 2022-12-30 Pneumococcal Vaccine: [facility] Test 10:15:19 Pediatrics (0 to 5 Years) and At-Risk Patients (6 to 64 Years) (1 - PCV) [code = Pneumococcal Vaccine: Pediatrics (0 to 5 Years) and At-Risk Patients (6 to 64 Years) (1 - PCV)] Future Scheduled 2022-12-30 Hepatitis C screening [facility] Test 10:15:19 (procedure) [code = 435704046] Future Scheduled 2022-12-30 Screening for [facility] Test 10:15:19 malignant neoplasm of cervix (procedure) [code = 708333069] Future Scheduled 2022-12-30 COVID-19 VACCINE (3 - [facility] Test 10:15:19 Booster for Pfizer series) [code = COVID-19 VACCINE (3 - Booster for Pfizer series)] Future Scheduled 2022-12-30 [facility] 10:15:19 [code = INFLUENZA VACCINE] Future Scheduled 2022-12-30 Pneumococcal Vaccine: [facility] Test 10:15:19 Pediatrics (0 to 5 Years) and At-Risk Patients (6 to 64 Years) (1 - PCV) [code = Pneumococcal Vaccine: Pediatrics (0 to 5 Years) and At-Risk Patients (6 to 64 Years) (1 - PCV)] Future Scheduled 2022-12-30 [facility] screening [facility] Test 10:15:19 (procedure) [code = 343547766] Future Scheduled 2022-12-30 Screening for [facility] Test 10:15:19 malignant neoplasm of cervix (procedure) [code = 684286469] Future Scheduled 2022-12-30 COVID-19 VACCINE (3 - [facility] Test 10:15:19 Booster for Pfizer series) [code = COVID-19 VACCINE (3 - Booster for Pfizer series)] Future Scheduled 2022-12-30 [facility] 10:15:19 [code = INFLUENZA VACCINE] Future Scheduled 2022-12-30 Pneumococcal Vaccine: [facility] Test 10:15:19 Pediatrics (0 to 5 Years) and At-Risk Patients (6 to 64 Years) (1 - PCV) [code = Pneumococcal Vaccine: Pediatrics (0 to 5 Years) and At-Risk Patients (6 to 64 Years) (1 - PCV)] Future Scheduled 2022-12-30 Hepatitis C screening [facility] Test 10:15:19 (procedure) [code = 501649728] Future Scheduled 2022-12-30 Screening for [facility] Test 10:15:19 malignant neoplasm of cervix (procedure) [code = 228821126] Future Scheduled 2022-12-30 COVID-19 VACCINE (3 - [facility] Test 10:15:19 Booster for Pfizer series) [code = COVID-19 VACCINE (3 - Booster for Pfizer series)] Future Scheduled 2022-12-30 [facility]ZA VACCINE [facility] Test 10:15:19 [code = INFLUENZA VACCINE] Future Scheduled 2022-08-02 Pneumococcal Vaccine: [facility] Test 11:23:36 Pediatrics (0 to 5 Years) and At-Risk Patients (6 to 64 Years) (1 - PCV) [code = Pneumococcal Vaccine: Pediatrics (0 to 5 Years) and At-Risk Patients (6 to 64 Years) (1 - PCV)] Future Scheduled 2022-08-02 Hepatitis C screening [facility] Test 11:23:36 (procedure) [code = 761852331] Future Scheduled 2022-08-02 Screening for [facility] Test 11:23:36 malignant neoplasm of cervix (procedure) [code = 853773514] Future Scheduled 2022-08-02 COVID-19 VACCINE (3 - [facility] Test 11:23:36 Booster for Pfizer series) [code = COVID-19 VACCINE (3 - Booster for Pfizer series)] Future Scheduled 2022-08-02 INFLUENZA VACCINE [facility] Test 11:23:36 [code = INFLUENZA VACCINE] Future Scheduled 2022-07-24 Pneumococcal Vaccine: [facility] Test 21:51:51 Pediatrics (0 to 5 Years) and At-Risk Patients (6 to 64 Years) (1 - PCV) [code = Pneumococcal Vaccine: Pediatrics (0 to 5 Years) and At-Risk Patients (6 to 64 Years) (1 - PCV)] Future Scheduled 2022-07-24 Hepatitis C screening [facility] Test 21:51:51 (procedure) [code = 857703507] Future Scheduled 2022-07-24 Screening for [facility] Test 21:51:51 malignant neoplasm of cervix (procedure) [code = 406014302] Future Scheduled 2022-07-24 COVID-19 VACCINE (3 - [facility] Test 21:51:51 Booster for Pfizer series) [code = COVID-19 VACCINE (3 - Booster for Pfizer series)] Future Scheduled 2022-07-24 INFLUENZA VACCINE [facility] Test 21:51:51 [code = INFLUENZA VACCINE] Future Scheduled 2022-07-15 Pneumococcal Vaccine: [facility] Test 15:03:03 Pediatrics (0 to 5 Years) and At-Risk Patients (6 to 64 Years) (1 - PCV) [code = Pneumococcal Vaccine: Pediatrics (0 to 5 Years) and At-Risk Patients (6 to 64 Years) (1 - PCV)] Future Scheduled 2022-07-15 Hepatitis C screening [facility] Test 15:03:03 (procedure) [code = 616427773] Future Scheduled 2022-07-15 Screening for [facility] Test 15:03:03 malignant neoplasm of cervix (procedure) [code = 013323085] Future Scheduled 2022-07-15 COVID-19 VACCINE (3 - [facility] Test 15:03:03 Booster for Pfizer series) [code = COVID-19 VACCINE (3 - Booster for Pfizer series)] Future Scheduled 2022-07-15 INFLUENZA VACCINE [facility] Test 15:03:03 [code = INFLUENZA VACCINE] Future Scheduled 2022 Pneumococcal Vaccine: [facility] Test 09:54:03 Pediatrics (0 to 5 Years) and At-Risk Patients (6 to 64 Years) (1 - PCV) [code = Pneumococcal Vaccine: Pediatrics (0 to 5 Years) and At-Risk Patients (6 to 64 Years) (1 - PCV)] Future Scheduled 2022 Hepatitis C screening [facility] Test 09:54:03 (procedure) [code = 790655326] Future Scheduled 2022 Screening for [facility] Test 09:54:03 malignant neoplasm of cervix (procedure) [code = 698248039] Future Scheduled 2022 COVID-19 VACCINE (3 - [facility] Test 09:54:03 Booster for Pfizer series) [code = COVID-19 VACCINE (3 - Booster for Pfizer series)] Future Scheduled 2022 [facility] 09:54:03 [code = INFLUENZA VACCINE] Encounters Start End Encounter Admission Attending Care Care Encounter Source Date/Time Date/Time Type Type Clinicians Facility Department ID 2021-07-06 Emergency [facility] [id number] [facility]04 Emergency [facility] [id number] [facility]-07-04 Emergency [facility] [id number] [facility] 2021-01-09 Inpatient [facility] MLAISSA [id number] [facility] 10:52:00 [id number] [facility] 2020-12-27 Inpatient [facility] MALISSA [id number] [facility] 20:29:00 65 [facility] 2020-12-26 Inpatient CLAUDETTE Escobar, [facility] ENDO [id number] [facility] 10:00:00 Rik 01 [facility] 2020-12-22 Inpatient [facility] [id number] [facility] 23:08:15 49 [facility] 2020-08-23 Inpatient [facility] MALISSA [id number] [facility] 09:10:00 26 [facility] 2020-08-05 Inpatient [facility] MALISSA [id number] [facility] 20:55:00 [facility] 2020-02-20 Outpatient PUMA FOSTERHH [facility] [id number] [facility] 10:04:01 LISHA 2023-07-16 2023-07-16 Outpatient MARINA WISDOM [facility] [id number] Univers 14:00:00 14:00:00 MARINA BERG [facility] 2023-07-05 2023-07-05 Emergency [facility] [id number] Univers 12:50:00 14:12:00 DONTA misty [facility] 2023-07-05 2023-07-05 Emergency [facility] [id number] Univers 12:50:00 14:12:00 Donta [facility] 350.1.13.10 i ty of [place] [id number] [address] 2023-07-04 2023-07-04 Patient Doctor [facility] 1.2.840.114 [id number] Univers 00:00:00 00:00:00 Secure Msg Unassigned, HEALTH 350.1.13.10 ity of [place] 4.2.7.2.686 Zay as BLANCA?BLEA [phone] [address] OFFICE [facility] 2023-07-02 2023-07-02 Telephone [facility] 1.2.840.114 [id number] Univers 00:00:00 00:00:00 Rania HEALTH 350.1.13.10 it y of [facility] 4.2.7.2.686 Zay as BLANCA?BLEA [id number] [address] OFFICE [facility] 2023-07-02 2023-07-02 Clinic [facility] [id number] Univers 00:00:00 00:00:00 Assessment Devang HEALTH 350.1.13.10 ity of [facility] 4.2.7.2.686 Zay as BLANCA?BLEA [id number] [address] OFFICE [facility] 2023-07-01 2023-07-01 Outpatient R JOSE [facility] [id number] Univers 11:00:00 11:39:48 DEVANG calixto [facility] 2023-07-01 2023-07-01 [facility] ..840.11 [id number] Univers 11:00:00 11:39:48 Care Unknown, Attending HEALTH 350.1.13.10 ity [facility] 4.2.7.2.686 Zay as BLANCA?BLEA [id number] Mo denilson [place] [address] [facility] OFFICE [facility] 2023-06-29 2023-06-29 Outpatient R TEODOROTOBYARIEL [facility] [id number] [facility] 13:20:00 14:35:47 DEVANG calixto [facility] 2023-06-29 2023-06-29 Urgent Jose [facility] ..840.11 4 [id number] [facility] 13:20:00 14:35:47 Care Unknown, Attending HEALTH 350..13.10 ity of [place] 4.2.7.2.686 Zay as BLANCA?BLEA [phone] Mo denilson MELIDA [address] [place] [address] 2023-06-29 2023-06-29 Outpatient SALENA Strickland PABLITO [id number] [facility] 12:00:00 12:00:[address] 2023-06-10 2023-06-10 Outpatient R PACO BERGINE [facility] [id number] [facility] 10:40:00 11:18:23 MARINA BERG [facility] 2023-06-10 2023-06-10 [facility] 1.2.840.114 [id number] [facility] 10:40:00 11:18:23 Visit [facility] 350.1.13.10 ity of [place] 4.2.7.2.686 Zay as BLANCA?BLEA [phone] Mo denilson [place] [address] [facility] OFFICE [facility] 2023-06-10 2023-06-10 Patient Ruth [facility] 1.2.840.114 [id number] Univers 00:00:00 00:00:00 Outreach Mindy R [facility] 350.1.13.10 ity of [facility] 4.2.7.2.[place] [phone] Mo dical NAL [address] [facility] 2023-06-08 2023-06-08 Outpatient R GRACIELA [facility] [id number] Univers 11:30:00 11:30:00 KAYLEY calixto of [facility] 2023-05-27 2023-05-27 [facility] [id number] Univers 00:00:00 00:00:00 Amrit GUERRERO 350.1.13.10 ity of [facility] 4.2.7.2.[place] [id number] Mo dical NAL 059 [facility] 2023-05-25 2023-05-25 Telephone [facility] [id number] Univers 00:00:00 00:00:00 Amrit GUERRERO 350.1.13.10 ity of [facility] 4.2.7.2.[place] [id number] [facility] 0[address] [facility] 2023-05-24 2023-05-24 Telephone [facility] [id number] Univers 00:00:00 00:00:00 Amrit GUERRERO 350.1.13.10 ity of [facility] 4.2.7.2.[place] [id number] [facility] NAL 059 [facility] 2023-05-19 2023-05-19 Telephone Graciela [facility] 1.2.840.114 [id number] Univers 00:00:00 00:00:00 Kayley GANDARA 350.1.13.10 it y of [place] [id number] [facility] [address] 2023-03-02 2023-03-02 Urgent Tami Alas [facility] 1.2.840.114 [id number] Univers 12:00:00 12:20:00 Care Unknown, Attending HEALTH 350.1.13.10 ity of [facility] 4.2.7.2.686 Zay as BLANCA?BLEA [id number] [facility] [address] [place] [address] MEDICAL OFFICE BUILDING 2023-03-02 2023-03-02 Outpatient R LUIS [facility] [id number] Univers 12:00:00 12:00:00 TAMI calixto [facility] 2023-03-02 2023-03-02 Frandy [facility] 1.2.840.114 [id number] Univers 00:00:00 00:00:00 (Out) Tami [facility] 350.1.13.10 it y of [place] 4.2.7.2.686 Zay as BLANCA?BLEA [id number] Mo denilson [place] [address] [place] [address] OFFICE [facility] 2023-01-21 2023-01-21 Emergency X POLLO [facility] ERT [id number] Univers 13:46:00 18:49:00 JOE misty [facility] 2023-01-21 2023-01-21 [facility] 1.2.139.793 [id number] Univers 13:46:00 18:49:00 [facility] 350.1.13.10 it y of [place] 4.2.7.2.686 [facility] [id number] [address] ([facility]) 2023-01-21 2023-01-21 Outpatient R KRISTY [facility] [id number] Univers 13:30:00 13:30:00 SMITHA misty [facility] 2023-01-15 2023-01-15 Emergency X [facility]RT [id number] Univers 08:50:00 13:10:00 BRANT [facility] 2023-01-15 2023-01-15 Emergency [facility] [id number] [id number] Univers 08:50:00 13:10:00 Brant S YOLANDA 350.1.13.10 i ty of [place] 4.2.7.2.686 [facility] [id number] [address] 2023-01-15 2023-01-15 Outpatient R KENZIE BADILLO [facility] [id number] Univers 09:00:00 09:00:00 itmisty [facility] 2023-01-15 2023-01-15 Emergency X CAROL [facility] ERT [id number] Univers 05:24:00 06:28:00 MILADYS ity [facility] 2023-01-15 2023-01-15 Emergency [facility] [id number] Univers 05:24:00 06:28:00 Miladys GUERRERO 350.1.13.10 ity of [place] 4.2.7.2.686 [facility] [id number] [facility] [address] 2023-01-12 2023-01-12 Outpatient R FELISHA [facility] [id number] Univers 10:30:00 10:30:00 JUANY ity [facility] 2023-01-08 2023-01-08 Outpatient R FRANCESCA [facility] [id number] Univers 08:00:00 08:00:00 SENDIL ity [facility] 2023-01-07 2023-01-07 Orders Doctor HALEY 1.2.840.114 [id number] Univers 00:00:00 00:00:00 Only Unassigned, ALEM 350.1.13.10 ity of [place] [facility] 4.2.7.2.686 Zay as [id number] [facility] [address] 2023-01-04 2023-01-04 Orders Doctor SUDHA 1.2.840.114 [id number] Univers 00:00:00 00:00:00 Only Unassigned, ALEM 350.1.13.10 ity of [place] [facility] 4.2.7.2.686 Zay as [id number] [facility] [address] 2023-01-04 2023-01-04 Telephone [facility] [id number] [id number] Univers 00:00:00 00:00:00 Juany HEALTH 350.1.13.10 it y of [place] [facility] 4.2.7.2.686 [facility] - [phone] Med ical [facility] [address] 2023-01-01 2023-01-01 Telephone [facility] [facility] 1.2.840.11 4 [id number] Univers 00:00:00 00:00:00 Jorge GANDARA 350.1.13.10 it y of WOMEN'S 4.2.7.2.686 [facility] [id number] [facility] [address] 2022-12-31 2022-12-31 Emergency X JGJasmin [facility] ERT [id number] Univers 00:13:00 01:07:00 ity of [facility] 2022-12-31 2022-12-31 Emergency Jasmin Gregorio [facility] 1.2.840.114 10 [id number] Univers 00:13:00 01:07:00 Filomena GUERRERO 350.1.13.10 i ty of [place] 4.2.7.2.686 [facility] [id number] [facility] [address] Branch 2022-12-31 2022-12-31 Telephone Francesca [facility] 1.2.646.788 3466 64224 Univers 00:00:00 00:00:00 Sendil Ismael GUERRERO 350.1.13.10 ity [facility] 4.2.7.2.686 [facility] PROFESSIO [phone] Mo dical NAL 059 [facility] 2022-12-31 2022-12-31 Patient Doctor SUDHA 1.2.840.114 [id number] 006 Univers 00:00:00 00:00:00 Secure Msg Unassigned, ALEM 350.1.13.10 ity of [place] [facility] 4.2.7.2.686 Zay [id number] [facility] [address] 2022-12-30 2022-12-30 Hospital Francesca [facility] 1.2.840.114 [id number] Univers 10:38:24 23:59:00 Encounter Sendgerman GUERRERO 350.1.13.10 ity [facility] 4.2.7.2.686 [facility] [phone] [facility] [address] 2022-12-30 2022-12-30 Outpatient R FRANCESCA [facility] [id number] Univers 10:38:24 23:59:00 SENDIL durga [facility] 2022-12-30 2022-12-30 Emergency X ELISA [facility] ERT [id number] Univers 10:21:00 10:33:00 AWILDA itmisty [facility] 2022-12-30 2022-12-30 Emergency [facility] 1.2.840.114 10 [id number] Univers 10:21:00 10:33:00 Awilda GUERRERO 350.1.13.10 ity [facility] 4.2.7.2.686 [facility] [id number] [facility] [address] 2022-12-30 2022-12-30 Telephone Sammie [facility] 1.2.840.11 4 [id number] Univers 00:00:00 00:00:00 Jorge GANDARA 350.1.13.10 it y of WOMEN'S 4.2.7.2.686 [facility] [id number] [facility] [address] 2022-12-29 2022-12-29 Outpatient R JORGE CHANDRA [facility] B [id number] Univers 13:30:00 13:30:00 JORGE CHANDRA ity [facility] 2022-12-29 2022-12-29 Orders Doctor SUDHA 1.2.840.114 [id number] Univers 00:00:00 00:00:00 Only Unassigned, ALEM 350.1.13.10 ity of [place] [facility] 4.2.7.2.686 [facility] [id number] [facility] 00[address] 2022-12-29 2022-12-29 Telephone Felisha [facility] 1.2.996.843 8526 [id number] Univers 00:00:00 00:00:00 Juany HEALTH 350.1.13.10 it y of [place] CANCER 4.2.7.2.686 [facility] - [phone] Med [facility] [address] 2022-12-28 2022-12-28 Telephone Felisha [facility] 1.2.480.492 4962 33258 Univers 00:00:00 00:00:00 Juany HEALTH 350.1.13.10 it y of [place] 4.2.7.2.686 [facility] - [phone] [facility] [address] 2022-12-25 2022-12-25 Patient Grcaiela [facility] 1.2.840.114 [id number] 828 Univers 00:00:00 00:00:00 Secure Ms Kayley HEALTH 350.1.13.10 ity of [place] 4.2.7.2.686 Zay as BLANCA?BLEA [phone] Mo denilson [place] 044 [facility] OFFICE BUILDING 2022-12-23 2022-12-23 Telephone [facility] 1.2.840.11 4 [id number] Univers 00:00:00 00:00:00 Jorge GANDARA 350.1.13.10 it y [place] [facility] [phone] [address] 2022-12-23 2022-12-23 Patient [facility] 1.2.840.114 [id number] Univers 00:00:00 00:00:00 Secure Msg Norberto GARNERJUAREZ 350.1.13.10 ity of [facility] 4.2.7.2.[place] [phone] [address] 2022-12-22 2022-12-22 [facility], Kenneth - Christofer [facility] 1.2.840.1 14 [id number] Univers 09:30:00 09:45:00 [facility] 350.1.13.1 0 ity of [place] 4.2.7.2.686 Zay as BLANCA?BLEA [phone] Mo denilson [place] 353 [facility] OFFICE [facility] 2022-12-22 2022-12-22 Office [facility] 1.2.840.114 [id number] Univers 08:00:00 08:53:38 Visit Jorge NICHOL 350.1.13.10 it y of [place].2.[place] [id number] [address] 2022-12-22 2022-12-22 Outpatient R JORGE CHANDRA [facility] B [id number] Univers 08:00:00 08:53:38 JORGE CHANDRA ity of [facility] 2022-12-22 2022-12-22 Patient Doctor HALEY 1.2.840.114 [id number] Univers 00:00:00 00:00:00 Secure Msg Unassigned, ALEM 350.1.13.10 ity of [place] [facility] 4.2.7.2.686 Zay as [id number] [facility] [address] 2022-12-21 2022-12-21 Orders Doctor SUDHA 1.2.840.114 [id number] Univers 00:00:00 00:00:00 Only Unassigned, ALEM 350.1.13.10 ity of [place] [facility] 4.2.7.2.686 Zay as [id number] [facility] [address] 2022-12-19 2022-12-19 Emergency X [facility] ERT [id number] Univers 02:32:00 05:47:00 WAKILI ity of [facility] 2022-12-19 2022-12-19 Emergency [facility] 1.2.377.827 2350 [id number] Univers 02:32:00 05:47:00 Incesar GUERRERO 350.1.13.10 ity of [place].2.7.2.[place] [id number] [facility] [address] 2022-12-18 2022-12-18 Outpatient R KENZIE BADILLO [facility] 949 [id number] Univers 09:45:00 09:45:00 ity of [facility] 2022-12-17 2022-12-17 Telephone Kenzie Badillo [facility] 1.2.840.114 [id number] Univers 00:00:00 00:00:00 E HEALTH 350.1.13.10 it y of [place] 4.2.7.2.686 [place] [facility] [phone] [facility] [address] 2022-12-15 2022-12-15 Outpatient R FRANCESCA [facility] [id number] Univers 11:00:00 11:30:30 SENDIL ity [facility] 2022-12-15 2022-12-15 Office [facility] 1.2.840.114 [id number] Univers 11:00:00 11:30:30 Visit Sendil Ismael GUERRERO 350.1.13.10 ity of [facility] 4.2.7.2.686 [place] [facility] [phone] [facility] 0[address] [facility] 2022-12-15 2022-12-15 Telephone [facility] 1.2.795.199 7286 09255 Univers 00:00:00 00:00:00 Amrit GUERRERO 350.1.13.10 ity [facility] 4.2.7.2.686 [place] [facility] [phone] Mo dical NAL [address] [facility] 2022-12-14 2022-12-14 Emergency X [facility] ERT [id number] Univers 03:03:00 07:05:00 ARVINDLI ity [facility] 2022-12-14 2022-12-14 Emergency [facility] 1.2.545.633 5116 [id number] Univers 03:03:00 07:05:00 Miladys GUERRERO 350.1.13.10 ity [facility] 4.2.7.2.[place] [id number] [address] 2022-11-03 2022-11-03 Emergency X VASTN, [facility] ERT [id number] Univers 08:15:00 12:05:00 GAURANG itmisty [facility] 2022-11-03 2022-11-03 Emergency Replaced by [facility] 1.2.482.898 [id number] 89438 Univers 08:15:00 12:05:00 Gaurang GUERRERO 350.1.13.10 i ty [facility] 4.2.7.2.[place] [id number] [address] 2022-10-28 2022-10-28 Outpatient R GRACIELA [facility] [id number] Univers 15:00:00 15:28:11 KAYLEY calixto [facility] 2022-10-28 2022-10-28 Office [facility] 1..840.114 [id number] Univers 15:00:00 15:28:11 Visit Kayley CISNEROS 350.1.13.10 it y [facility] 4.2.7.2.686 Zay as BLANCA?BLEA [phone] Mo dical KNEY [address] [place] MEDICAL OFFICE [facility] 2022-10-28 2022-10-28 Orders Doctor HALEY 1.2.840.114 [id number] Univers 00:00:00 00:00:00 Only Unassigned, ALEM 350.1.13.10 ity of [place] [facility] 4.2.7.2.686 Zay as [phone] [facility] [address] [place] 2022-10-28 2022-10-28 Abstract Graciela [facility] 1.2.840.114 [id number] Univers 00:00:00 00:00:00 [facility] 350.1.13.10 it y of [place] 4.2.7.2.686 Zay as BLANCA?BLEA [phone] [address] OFFICE [facility] 2022-10-28 2022-10-28 Patient Henry [facility] 1.2.840.114 [id number] Univers 00:00:00 00:00:00 Outreach Florence Barbara [facility] 350.1.13.10 i ty of [place] 4.2.7.2.686 Zay as BLANCA?BLEA [phone] [address] 2022-10-28 2022-10-28 Telephone Henry [facility] 1.2.112.255 6329 09360 Univers 00:00:00 00:00:00 Phylicia [facility] 350.1.13.10 i ty of [place].2.7.2.686 [place] [facility] [phone] [address] 2022-10-13 2022-10-13 Emergency X CAROL [facility] ERT [id number] Univers 01:56:00 02:55:00 MILADYS calixto [facility] 2022-10-13 2022-10-13 Emergency Carol [facility] 1.2.525.788 7508 15748 Univers 01:56:00 02:55:00 Miladys GUERRERO 350.1.13.10 ity of [place].7.2.[place] [id number] [facility] [address] [place] 2022-10-09 2022-10-09 Emergency X HALI [facility] ERT [id number] Univers 18:46:00 19:00:00 BRANT calixto [facility] 2022-10-09 2022-10-09 Emergency [facility] 1.2.950.722 2897 37870 Univers 18:46:00 19:00:00 Brant S YOLANDA 350.1.13.10 i ty of [place].2.7.2.[place] [phone] [facility] [address] 2022-10-09 2022-10-09 Orders Doctor SUDHA 1.2.840.114 [id number] Univers 00:00:00 00:00:00 Only Unassigned, ALEM 350.1.13.10 ity of [place] [facility] 4.2.7.2.686 Zay as [id number] [facility] [address] 2022-10-06 2022-10-06 [facility], 1.2.840.1 [id number] 209 [id number] Methodi 17:35:51 23:59:00 Encounter Jorge Luis 88428.1.1 997 s t 3.430.2.7 Hospit a 3.555800 l .8 2022-10-06 2022-10-06 [facility], 1.2.840.1 [id number] 798 [id number] Methodi 17:35:51 23:59:00 Encounter Jorge Luis 17380.1.1 997 s t 3.430.2.7 Hospit a 3.109672 l .8 2022-10-06 2022-10-06 [facility], 1.2.840.1 [id number] 862 [id number] Methodi 17:35:36 23:59:00 Encounter Jorge Luis 09482.1.1 999 s t 3.430.2.7 Hospit a 3.028654 l .8 2022-10-06 2022-10-06 [facility], 1.2.840.1 [id number] 997 [id number] Methodi 17:35:36 23:59:00 Encounter Jorge Luis 77375.1.1 999 s t 3.430.2.7 Hospit a 3.616496 l .8 2022-10-06 2022-10-06 Travel 1.2.840.1 1.2.887.876 0675 863662 Methodi 00:00:00 00:00:[address] 3.430.2.7 0.2.7.3.698 Ho spita .3.446920 084.8 l .8 2022-10-06 2022-10-06 Travel 1.2.840.1 1.2.814.803 2554 394972 Methodi 00:00:00 00:00:[address] 3.430.2.7 0.2.7.3.698 Ho spita .3.342833 084.8 l .8 2022-09-09 2022-09-09 Emergency X [facility] ERT [id number] Univers 18:15:00 19:35:00 NATY calixto [facility] 2022-09-09 2022-09-09 Emergency [facility] 1.2.840.114 [id number] 75215 Univers 18:15:00 19:35:00 Natyeric GUERRERO 350.1.13.10 i ty of [place] 4.2.7.2.686 [facility] [id number] [address] 2022-08-18 2022-08-18 Emergency X [facility] ERT [id number] Univers 16:38:00 17:44:00 HUY calixto [facility] 2022-08-18 2022-08-18 Emergency [facility] 1.2.505.635 4710 1453 Univers 16:38:00 17:44:00 Huy GUERRERO 350.1.13.10 i ty of [place] 4.2.7.2.686 [facility] [id number] [address] 2022-08-07 2022-08-08 Inpatient EL Nayeli, [facility] MEDI. [id number] [facility] 14:50:00 12:01:00 Gianna [facility] 2022-08-03 2022-08-03 Emergency EM Ernesto, [facility] AERS [id number] [facility] 14:26:00 16:02:00 Roro 86 [facility] 2022-07-23 2022-07-23 [facility], 1.2.840.1 [id number] 119 [id number] Methodi 10:30:00 10:30:00 Encounter Jorge Luis 20523.1.1 209 s t 3.430.2.7 Hospit a .3.634032 l .8 2022-07-23 2022-07-23 Telephone Gabi, 1.2.840.1 [id number] 2099 238718 Methodi 00:00:00 00:00:[address] 3.430.2.7 Hospit a .3.305442 l .8 2022-07-23 2022-07-23 Telephone Gabi, 1.2.840.1 [id number] 2099 912811 Methodi 00:00:00 00:00:[address] 3.430.2.7 Hospit a .3.012950 l .8 2022-07-07 2022-07-07 Outpatient LONA DILL [id number] 936 Lona 10:45:00 10:45:00 ELBERT alvarez 2022-07-06 2022-07-06 Travel 1.2.840.1 1.2.652.843 0879 044702 Methodi 00:00:00 00:00:[address] 3.430.2.7 0.2.7.3.698 Ho spita .3.791098 084.8 l .8 2022-07-06 2022-07-06 Travel 1.2.840.1 1.2.502.668 6859 400658 Methodi 00:00:00 00:00:[address] 3.430.2.7 0.2.7.3.698 Ho spita .3.392913 084.8 l .8 2022-06-15 2022-06-16 Office [facility], 1.2.840.1 [id number] 2099 259905 Methodi 14:15:00 11:08:59 Visit Jorge Luis 85654.1.[address] 3.430.2.7 Hospit a .3.776449 l .8 2022-06-15 2022-06-15 [facility], 1.2.840.1 [id number] 703 9189421 Methodi 14:15:15 23:59:00 Encounter Jorge Luis 90627.1.1 971 s t 3.430.2.7 Hospit a .3.387572 l .8 2022-06-15 2022-06-15 [facility], 1.2.840.1 [id number] 495 1502263 Methodi 14:15:13 23:59:00 Encounter Jorge Luis 56206.1.1 963 s t 3.430.2.7 Hospit a .3.324443 l .8 2022-06-15 2022-06-15 [facility], 1.2.840.1 [id number] 550 [id number] Methodi 14:13:36 14:14:00 Encounter Jorge Luis 43940.1.1 680 s t 3.430.2.7 Hospit a .3.021522 l .8 2022-06-15 2022-06-15 [facility], 1.2.840.1 [id number] 434 3537734 Methodi 14:12:01 14:12:01 Encounter Jorge Luis 12541.1.1 418 s t 3.430.2.7 Hospit a .3.122667 l .8 2022-06-15 2022-06-15 [facility], 1.2.840.1 [id number] 2100 808543 Methodi 00:00:00 00:00:00 Only Jorge Luis 24690.1.[address] 3.430.2.7 Hospit a .3.727176 l .8 2022-06-15 2022-06-15 Travel 1.2.840.1 1.2.782.233 1838 994608 Methodi 00:00:00 00:00:[address] 3.430.2.7 0.2.7.3.698 Ho spita .3.498367 084.8 l .8 2022-06-11 2022-06-11 Travel 1.2.840.1 1.2.121.990 5273 210496 Methodi 00:00:00 00:00:[address] 3.430.2.7 0.2.7.3.698 Ho spita .3.971804 084.8 l .8 2022-02-17 2022-02-17 Refill Jony, 1.2.840.1 [id number] 2100 347892 Methodi 00:00:00 00:00:[address] Andrea 3.430.2.7 Hospit a .3.172456 l .8 2022-01-20 2022-01-20 Office Jony 1.2.840.1 [id number] 2099 698834 Methodi 13:00:00 13:57:49 Visit [place] 43591.1.[address] [facility] 3.430.2.7 Hospit a .3.051645 l .8 2022-01-20 2022-01-20 Telephone GEORGIE Kelley 1.2.840.114 9 [id number] Univers 00:00:00 00:00:00 Michi MIJARESPEC 350.1.13.10 ity of [place] 4.2.7.2.686 [facility] [id number] [facility] AND [address] [facility] 2022-01-20 2022-01-20 Travel 1.2.840.1 1.2.791.940 6956 172388 Methodi 00:00:00 00:00:[address] 3.430.2.7 0.2.7.3.698 Ho spita .3.999386 084.8 l .8 2022-01-19 2022-01-19 Telephone GEORGIE Borges 1.2.840.114 93 [id number] Univers 00:00:00 00:00:00 Yoseph MULTISPEC 350.1.13.10 ity of Andrea IALTMisty 4.2.7.2.686 [facility] [phone] [facility] AND CROUSE [address] [facility] 2021-11-21 2021-11-21 Orders Doctor SUDHA 1.2.840.114 [id number] Univers 00:00:00 00:00:00 Only Unassigned, ALEM 350.1.13.10 ity of [place] [facility] 4.2.7.2.686 [facility] [id number] [facility] [address] 2021-11-17 2021-11-18 Emergency X [facility] ERT [id number] Univers 19:45:00 00:44:00 DONTA ity [facility] 2021-11-17 2021-11-18 [facility] 1.2.501.413 8682 8574 Univers 19:45:00 00:44:00 Donta [facility] 350.1.13.10 i ty [facility] 4.2.7.2.686 [facility] 300.7535838 [place] 361924 Branch 2021-11-16 2021-11-16 Emergency X [facility] ERT [id number] 86 Univers 20:28:00 21:58:00 NEJANETTELI ity [facility] 2021-11-16 2021-11-16 [facility] 1.2.344.199 2374 5340 Univers 20:28:00 21:58:00 Miladys GARNERJUAREZ 350.1.13.10 ity [facility] 4.2.7.2.686 [facility] [id number] [place] 361924 Branch 2021-10-02 2021-10-02 Emergency EM Nwandreae, HCACL MALISSA [id number] [facility] 16:59:00 20:32:00 Hung 992230 Cl [facility] 2021-10-02 2021-10-02 Emergency EM EDDOC, HCACL HCACL [id number] [facility] 16:59:00 20:32:00 GENERIC 76 [facility] 2021-10-01 2021-10-01 Petr Borges, 1.2.840.1 [id number] 2100 391029 Lucia 00:00:00 00:00:[address] Andrea 3.430.2.7 Hospit a .3.289783 l .8 2021-09-30 2021-09-30 Emergency X [facility] ERT [id number] 6954 Univers 13:31:00 16:34:00 [facility] 2021-09-30 2021-09-30 Emergency [facility] 1.2.840.114 90 670939 Univers 13:31:00 16:34:00 Awilda GUERRERO 350.1.13.10 ity [facility] 4.2.7.2.686 [facility] [id number] [address] 2021-08-14 2021-08-14 Refill Gutierres, 1.2.840.1 [id number] 21 [id number] Methodi 00:00:00 00:00:[address] 3.430.2.7 Hospit a .3.615808 l .8 2021-08-12 2021-08-12 Refill Gutierres, 1.2.840.1 [id number] 21 [id number] Methodi 00:00:00 00:00:[address] 3.430.2.7 Hospit a .3.780356 l .8 2021-07-23 2021-07-23 Emergency X [facility] ERT [id number] 08 Univers 16:14:00 17:06:00 [facility] 2021-07-23 2021-07-23 Emergency [facility] 1.2.932.164 1846 5383 Univers 16:14:00 17:06:00 YOLANDA 350.1.13.10 i ty [facility] 4.2.7.2.686 [facility] [id number] [address] 2021-07-23 2021-07-23 Emergency EM White, HCACL AERS [id number] [facility] 13:58:00 14:24:00 Burak 994160 [facility] 2021-07-23 2021-07-23 Emergency EM White, HCACL HCACL [id number] [facility] 13:58:00 14:24:00 Burak 69 [facility] 2021-07-10 2021-07-10 Telemedici Jony, 1.2.840.1 [id number] 2 [id number] Methodi 08:30:00 09:02:51 ne [place] 11154.1.[address] Andrea 3.430.2.7 Hospit a .3.911111 l .8 2021-07-09 2021-07-09 Travel 1.2.840.1 1.2.835.175 2356 532429 Methodi 00:00:00 00:00:[address] 3.430.2.7 0.2.7.3.698 Ho spita .3.605117 084.8 l .8 2021-06-13 2021-06-13 Outpatient [facility] 64463 12319 [place] 00:00:00 00:00:00 YOSEPH 976 Method i 2021-04-17 2021-04-17 Emergency E LOLITA [facility] 7515 16:40:00 19:42:00 [facility] 2021-03-30 2021-03-30 Emergency E SATURNINO [facility] 7514 MHBL 00:46:00 06:26:00 KURT 2021-01-15 2021-01-15 Outpatient Escobar, [facility] OUTD G81 6242-20 [facility] 08:00:00 08:00:00 Rik 653406 [facility] 2021-01-09 2021-01-09 Emergency E LOLITA [facility] 7513 12:29:00 16:41:00 [facility] 2020-12-26 2020-12-26 Emergency [facility] [id number] [place] [address] 00:00:00 00:00:[address] 2020-12-21 2020-12-22 [facility] 1.2.050.524 1771 7932 [facility] 22:42:00 02:02:00 Miladys Guerrero 350.1.13.10 Bhumi 4.2.7.2.686 [facility] [id number] [facility] [address] 2020-12-21 2020-12-22 Emergency [facility] 1.2.714.722 5488 7932 22:42:00 02:02:00 Miladys Waters Yolanda 350.1.13.10 [place] 4.2.7.2.686 [place] [id number] 08 2020-12-21 2020-12-21 Orders Doctor HALEY 1.2.840.114 [id number] 30 Univers 00:00:00 00:00:00 Only Unassigned, ALEM 350.1.13.10 ity of [place] [facility] 4.2.7.[address] [place] [address] [phone] [facility] [address] 2020-12-21 2020-12-21 Orders Doctor HALEY 1.2.840.114 [id number] 00:00:00 00:00:00 Only Unassigned, ALEM 350.1.13.10 [facility] 4.2.7.2.68 [id number] 009 2020-08-15 2020-08-19 Inpatient [facility] MALISSA [id number] [facility] 14:57:00 06:49:15 39 [facility] 2020-08-15 2020-08-15 Emergency [facility] 1.2.247.244 [id number] Univers 03:26:00 06:17:00 Donta Yolanda 350.1.13.10 i ty of [place] 4.2.7.2.686 [facility] [id number] [place] [address] [place] 2020-08-15 2020-08-15 [facility] [id number] Univers 03:26:00 06:17:00 DONTA ity of [facility] 2020-08-15 2020-08-15 [facility] 1.2.152.360 [id number] 03:26:00 06:17:00 Donta Yolanda 350.1.13.10 [place] 4.2.7.2.686 [place] [phone] [facility] 2020-04-13 2020-04-13 Emergency [facility] 1.2.840.114 [id number] 19:38:00 23:40:00 Awilda Cookie Guerrero 350.1.13.10 [place] 4.2.7.2.686 [place] [phone] [facility] 2020-04-13 2020-04-13 Emergency Elisa, [facility] 1.2.840.114 [id number] [facility] 19:38:00 23:40:00 Awilda Cookie Guerrero 350.1.13.10 ity of [place] 4.2.7.2.686 [facility] [id number] [address] 2020-04-13 2020-04-13 Orders Doctor HALEY 1.2.840.114 [id number] 00:00:00 00:00:00 Only Unassigned, ALEM 350.1.13.10 [facility] 4.2.7.2.68 [id number] [facility] 2020-04-13 2020-04-13 Orders Doctor HALEY 1.2.840.114 [id number] [facility] 00:00:00 00:00:00 Only Unassigned, ALEM 350.1.13.10 ity of [facility] [facility] 4.2.7.2.686 [facility] [id number] [address] 2020-04-10 2020-04-10 Emergency Pope, [facility] 1.2.389.243 [id number] 15:39:00 19:05:00 Huy Guerrero 350.1.13.10 [place] 4.2.7.2.686 [place] [phone] [facility] 2020-04-10 2020-04-10 Emergency , [facility] 1.2.867.504 [id number] [facility] 15:39:00 19:05:00 Huy Guerrero 350.1.13.10 i ty of [place] 4.2.7.[address] [place] [id number] 2020-04-10 2020-04-10 Orders Doctor HALEY 1.2.840.114 [id number] 00:00:00 00:00:00 Only Unassigned, ALEM 350.1.13.10 [facility] 4.2.7.2.686 [id number] [id number] 2020-04-10 2020-04-10 Orders Doctor HALEY 1.2.840.114 [id number] Univers 00:00:00 00:00:00 Only Unassigned, ALEM 350.1.13.10 ity of [facility] 4.2.7.2.686 Zay as [phone] [place] [address] [address] 2020-03-11 2020-03-11 [facility] [id number] [place] 10:00:00 10:00:00 t; Gayatri HUSAIN and Quynh FOSTER Gynecology rubén HUSAIN M.D. [facility] 2020-02-28 2020-02-28 [facility] [id number] [place] 08:30:00 08:30:00 t; Gayatri HUSAIN ans ASHA, M.D. 2020-02-23 2020-02-23 [facility] [id number] [place] 11:00:00 11:00:00 t; Gayatri HUSAIN ans ASHA, M.D. 2020-02-16 2020-02-16 [facility] Ob[facility] [id number] [place] 14:15:00 14:15:00 t; Yue ROCHA i, M.D. Gynecology Dinha Crawford M.D. Clinic 2020-02-15 2020-02-15 Emergency E AMELIE, MHSE MHSE 7510 20:06:00 21:19:00 [facility] 2020-02-14 2020-02-14 Dusty [facility] Obstetrics [id number] [place] 09:00:00 09:00:00 t; SAMIR MATAMOROS and Phy sici BETHANY, M.D. Gynecology rubén [facility] 2020-01-31 2020-01-31 Dusty [facility] Obstetrics [id number] [place] 08:30:00 08:30:00 t; Yue WATKINS i, D.O. Gynecology Dinah [facility] 2019-12-20 2019-12-20 Dusty [facility] Orthopedics [id number] [place] 09:30:00 09:30:00 t; mayo [place] Quynh GOSS M.D. Sports Jewel Lazo M.D. [facility] 2019-12-20 2019-12-20 Outpatient Raju_P MMG G [id number] 020 [place] 04:51:00 04:51:00 0415 [facility] 2019-12-18 2019-12-18 Emergency E TABBY, MHSE MHSE 7500 MH 20:54:00 21:40:00 formerly [facility] 2019-10-11 2019-10-12 Emergency [facility] [id number] [id number] 21:52:36 00:17:00 Dontabhavin Guerrero 350.1.13.10 [place] 4.2.7.2.686 [place] [id number] [facility] 2019-10-11 2019-10-12 Emergency X [facility] ERT [id number] Univers 21:52:36 00:17:00 DONTA calixto [facility] 2019-10-11 2019-10-12 Emergency [facility] 1.2.996.393 [id number] Univers 21:52:36 00:17:00 Donta Guerrero 350.1.13.10 i ty of [place] 4.2.7.2.686 [facility] [id number] [facility] [address] [place] 2019-10-11 2019-10-11 Orders Doctor SUDHA 1.2.840.114 [id number] Univers 00:00:00 00:00:00 Only Unassigned, ALEM 350.1.13.10 ity of [facility] 4.2.7.2.686 Zay [id number] [facility] [address] [place] 2019-10-11 2019-10-11 Orders Doctor SUDHA 1.2.840.114 [id number] 00:00:00 00:00:00 Only Unassigned, ALEM 350.1.13.10 [facility] 4.2.7.2.686 [id number] 009 2019-06-28 2019-06-28 Appointmen MARIBEL GRUBBS Obstetrics [id number] [place] 16:00:00 16:00:00 t; Jackie CAVANAUGH. and Ph ysici HUMERA Gynecology Dinah Medina M.D. Clinic 2019-05-12 2019-05-12 Nurse Visit, Bautista Nurse [facility] 1.2 .840.114 [id number] Univers 10:44:42 12:05:57 Visit Perri Pérez CLEANER WALL 350.1.13.10 ity of REGIONAL 4.2.7.2.686 Zay as MATERNAL [id number] [facility] ical & CHILD [address] [place] [address] 2019-05-12 2019-05-12 Nurse Visit, [facility] 1.2.840.114 [id number] 10:44:42 12:05:57 Visit Bautista CLEANER WALL 350.1.13.10 Nurse REGIONAL 4.2.7.2.686 MATERNAL [id number] & CHILD [address] [place] [address] 2019-05-10 2019-05-10 [facility] 1.2.840.114 [id number] [facility] 00:00:00 00:00:00 Perri Olivier CLEANER WALL 350.1.13.10 it y of REGIONAL 4.2.7.2.686 Zay as MATERNAL [phone] Med ical & CHILD [address] [place] [address] 2019-05-10 2019-05-10 Telephone [facility] 1.2.840.114 [id number] 00:00:00 00:00:00 Perri Olivier CLE[employer]ER WALL 350.1.13.10 REGIONAL 4.2.7.2.686 MATERNAL [phone] & CHILD [address] [place] [address] 2019-04-03 2019-04-03 Patient ROBIN Mcfadden 1.2.840.114 [id number] [facility] 00:00:00 00:00:00 Secure Msg Ivet Y HEALTH 350.1.13.10 ity of [facility] 4.2.7.2.[place] [id number] [address] 2019-04-03 2019-04-03 Patient Bogdan [facility] 1.2.840.114 [id number] 00:00:00 00:00:00 Secure Msg Ivet Y HEALTH 350.1.13.10 CLINICS 4.2.7.2.686 [id number] [facility] 2019-03-07 2019-03-07 Patient Doctor HALEY 1.2.840.114 [id number] Univers 00:00:00 00:00:00 Secure Msg Unassigned, ALEM 350.1.13.10 ity of [place] [facility] 4.2.7.2.686 Zay as [id number] [address] 2019-03-07 2019-03-07 Patient Doctor SUDHA Johnston2.840.114 [id number] 00:00:00 00:00:00 Secure Msg Unassigned, ALEM 350.1.13.10 [facility] 4.2.7.2.686 [id number] 044 2019-02-27 2019-02-27 Patient Doctor SUDHA [place].2.840.114 [id number] Univers 00:00:00 00:00:00 Secure Msg Unassigned, ALEM 350.1.13.10 ity of [place] [facility] 4.2.7.2.686 Zay as [id number] [address] 2019-02-27 2019-02-27 Patient Doctor SUDHA [place].2.840.114 [id number] 00:00:00 00:00:00 Secure Msg Unassigned, ALEM 350.1.13.10 [facility] 4.2.7.2.686 [id number] 044 2018-10-13 2018-10-13 Dusty [facility] [id number] [place] 14:30:00 14:30:00 t; Jennifer FINK i, M.D. ans JORDAN, M.D. 2018-09-07 2018-09-21 Outpatient [facility] [id number] 15:00:00 10:19:03 2018-09-07 2018-09-07 AppointMARIBEL Rae [employer] [id number] [place] 15:00:00 15:00:00 t; BONITA KRISHNA Phys ici KANDACE, M.D. ans M.D. Results Test Description Test Time Test Comments Results Result Comments Source CBC WITH DIFF 2023-07-05 19:11:31 Test Item Value Reference Range Interpretation Comme nts WBC (test code = 6690-2) 10.00 See_Comment [A utomated message] The system which ge nerated this result transmit uche reference range: 4.30 - 1 1.10 10*3/?L. The reference r dagoberto was not used to interpr et this result as normal/abnor mal. RBC (test code = 789-8) 4.33 See_Comment [Au tomated message] The system which [employer] nerated this result transmit uche reference range: 3.93 - 5 .25 10*6/?L. The reference r dagoberto was not used to interpr et this result as normal/abnor mal. HGB (test code = 718-7) 14.0 g/dL 11.6-15.0 HCT (test code = 4544-3) 40.5 % 35.7-45.2 MCV (test code = 787-2) 93.5 fL 80.6-95.5 MCH (test code = 785-6) 32.3 pg 25.9-32.8 MCHC (test code = 786-4) 34.6 g/dL 31.6-35.1 RDW-SD (test code = 94949-7) 39.3 fL 39.0-49.9 RDW-CV (test code = 788-0) 11.5 % 12.0-15.5 L PLT (test code = 777-3) 426 See_Comment H [Au tomated message] The system which [employer] nerated this result transmit uche reference range: 166 - 35 8 10*3/?L. The reference range was not used to interpret th is result as normal/abnormal . MPV (test code = 26284-6) 9.3 fL 9.5-12.9 L NRBC/100 WBC (test code = 0.0 See_Comment [ Automated message] The 1695484043) system which [employer] nerated this result transmit uche reference range: 0.0 - 10 .0 /100 WBCs. The reference r dagoberto was not used to interpr et this result as normal/abnor mal. NRBC x10^3 (test code = See_Comment [Au tomated message] The 6139450444) system which [employer] nerated this result transmit uche reference range: 10*3/?L. The reference range was not u sed to interpret this result as normal/abnormal . GRAN MAT (NEUT) % (test code 69.0 % = 770-8) IMM GRAN % (test code = 0.40 % 1289799752) LYMPH % (test code = 736-9) 25.4 % MONO % (test code = 5905-5) 4.6 % EOS % (test code = 713-8) 0.2 % BASO % (test code = 706-2) 0.4 % GRAN MAT x10^3(ANC) (test 6.90 10*3/uL 1.88-7.09 code = 3161633855) IMM GRAN x10^3 (test code = 0.04 10*3/uL 0.00-0.06 2512858102) LYMPH x10^3 (test code = 2.54 10*3/uL 1.32-3.29 731-0) MONO x10^3 (test code = 0.46 10*3/uL 0.33-0.92 742-7) EOS x10^3 (test code = 0.03-0.39 L 711-2) BASO x10^3 (test code = 0.04 10*3/uL 0.01-0.07 704-7) Lab Interpretation (test Abnormal code = 19973-9) [id number] 18:05:00 Test Item Value Reference Range Interpretation Comments POCT PREG (test code = 1605) Negative On board controls acceptable with Yes C Line (test code = 3574) POCT PREG LOT # (test code = 3575) [id number] POCT PREG TEST DATE (test 09-08-2024 code = 3576) Lab Interpretation (test code = Normal 87241-6) [facility] [id number] 20:27:33 Test Item Value Reference Range Interpretation Comments TROPONIN I (test code = <=0.034 8683279600) ANGI (test code = ANGI) Reference (Normal) [...] biotin. Lab Interpretation Normal (test code = 23181-6) [facility] Metabolic [id number] 20:18:51 Test Item Value Reference Range Interpretation Comments NA (test code = 132 mmol/L 135-145 L 5615168197) K (test code = 4.1 mmol/L 3.5-5.0 1154025858) CL (test code = 98 mmol/L 98-108 4183158959) CO2 TOTAL (test code = 26 mmol/L 23-31 9145453203) AGAP (test code = 8 2-16 1679958646) BUN (test code = 12 mg/dL 7-23 3899203139) GLUCOSE (test code = 79 mg/dL 70-110 0938346518) CREATININE (test code = 0.58 mg/dL 0.50-1.04 5342231025) TOTAL BILI (test code = 0.4 mg/dL 0.1-1.6 7235799072) CALCIUM (test code = 9.0 mg/dL 8.6-10.6 3666634143) T PROTEIN (test code = 7.4 g/dL 6.3-8.2 6413303142) ALBUMIN (test code = 4.5 g/dL 3.5-5.0 9981036334) ALK PHOS (test code = 62 U/L 34-122 8761978403) ALTv (test code = 23 U/L 5-35 1742-6) AST(SGOT) (test code = 31 U/L 13-40 0656796124) eGFR (test code = 122.1 mL/min/1.73m2 4697261771) ANGI (test code = ANGI) Association of [...] tests). Lab Interpretation Abnormal (test code = 05508-8) [facility] Center[facility], [id number] 20:18:51 Test Item Value Reference Range Interpretation Comments LIPASE (test code = 4928828843) 186 U/L 0-220 Lab Interpretation (test code = Normal 21804-7) [facility] with [id number] 19:39:40 Test Item Value Reference Range Interpretation Comments WBC (test code = 5.62 See_Comment [Automated 4539-2) message] The sy stem which generated this result transmitted reference range : 4.30 - 11.10 10*3/?L. The reference range was not used to interpret this result as normal/abnormal . RBC (test code = 4.24 See_Comment [Automated 104-8) message] The sy stem which generated this [...] RDW-SD (test code = 44.1 fL 39.0-49.9 45063-8) RDW-CV (test code = 13.2 % 12.0-15.5 788-0) PLT (test code = 277 See_Comment [Automated 777-3) message] The sy stem which generated this result transmitted reference range : 166 - 358 10*3/ ?L. The reference r dagoberto was not used to interpret this result as normal/abnormal . MPV (test code = 8.5 fL 9.5-12.9 L 48332-5) NRBC/100 WBC (test 0.0 See_Comment [Automat ed code = 6559468834) message] The system which generated this result transmitted reference range : 0.0 - 10.0 /100 WBCs. The refer ence range was not u sed to interpret th is result as normal/abnormal . NRBC x10^3 (test code See_Comment [Auto mated = 4392281149) message] The s ystem which generated this result transmitted reference range : 10*3/?L. The reference range was not used to interpret this result as normal/abnormal . GRAN MAT (NEUT) % 46.4 % (test code = 770-8) IMM GRAN % (test code 0.90 % = 4705006071) LYMPH % (test code = 38.6 % 736-9) MONO % (test code = 12.5 % 5905-5) EOS % (test code = 0.7 % 713-8) BASO % (test code = 0.9 % 706-2) GRAN MAT x10^3(ANC) 2.61 10*3/uL 1.88-7.09 (test code = 5045918354) IMM GRAN x10^3 (test 0.05 10*3/uL 0.00-0.06 code = 5937326314) LYMPH x10^3 (test code 2.17 10*3/uL 1.32-3.29 = 731-0) MONO x10^3 (test code 0.70 10*3/uL 0.33-0.92 = 742-7) EOS x10^3 (test code = 0.04 10*3/uL 0.03-0.39 711-2) BASO x10^3 (test code 0.05 10*3/uL 0.01-0.07 = 704-7) Lab Interpretation Abnormal (test code = 22080-8) [facility] [id number] 19:34:00 Test Item Value Reference Range Interpretation Comments POCT PREG (test code = 1605) Negative On board controls acceptable with Yes C Line (test code = 3574) POCT PREG LOT # (test code = 3575) 746669 POCT PREG TEST DATE (test 04/13/2024 code = 3576) Lab Interpretation (test code = Normal 60798-8) [facility]. METABOLIC PANEL (70087)2023-01-15 15:36:17 Test Item Value Reference Range Interpretation Comments NA (test code = 139 mmol/L 135-145 0766962204) K (test code = 4.7 mmol/L 3.5-5.0 2669364315) CL (test code = 103 mmol/L 98-108 7102744831) CO2 TOTAL (test code 28 mmol/L 23-31 = 7024575026) AGAP (test code = 8 2-16 8731584408) BUN (test code = 14 mg/dL 7-23 5388259970) GLUCOSE (test code = 75 mg/dL 70-110 4940881058) CREATININE (test code 0.72 mg/dL 0.50-1.04 = 7633633758) TOTAL BILI (test code 0.4 mg/dL 0.1-1.1 = 3179202426)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
--- NOTE | 2023-07-06 11:11 | ER ---
Nurse's Notes [facility] Name: Lona Marie Age: 33 yrs Sex: Female : 1990 Arrival Date: 07/06/2023 Time: 10:29 Bed 12 Private MD: Diagnosis: Adjustment disorder with mixed anxiety and depressed mood;Insomnia Presentation: 07/06 10:41 Chief complaint: Patient states: Reports anxiety, lots of attacks recently, took jl7 herself off anxiety meds a while back and she's under a lot of stress now. Coronavirus screen: At this time, the client does not indicate any symptoms associated with coronavirus-19. Ebola Screen: No symptoms or risks identified at this time. Initial Sepsis Screen: Does the patient meet any 2 criteria? No. Patient's initial sepsis screen is negative. Does the patient have a suspected source of infection? No. Patient's initial sepsis screen is negative. Risk Assessment: Do you want to hurt yourself or someone else? Patient reports no desire to harm self or others. Onset of symptoms was July 06, 2023. 10:41 Method Of Arrival: Ambulatory jl7 10:41 Acuity: SMITH 3 jl7 Triage Assessment: 10:43 General: Appears in no apparent distress. uncomfortable, Behavior is cooperative, jl7 anxious. Pain: Denies pain. 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 - Social history:: Smoking status: Patient reports the use of cigarette tobacco products, denies chronic smoking, but will smoke occasionally. Screenin:19 [facility] ED Fall Risk Assessment (Adult) History of falling in the last 3 months, cp4 including since admission No falls in past 3 months (0 pts) Confusion or Disorientation No (0 pts) Intoxicated or Sedated No (0 pts) Impaired Gait No (0 pts) Mobility Assist Device Used No (0 pt) Altered Elimination No (0 pt) Score/Fall Risk Level 0 - 2 = Low Risk Oriented to surroundings, Maintained a safe environment, Educated pt \T\ family on fall prevention, incl call for assistance when getting out of bed, Hourly rounding (assess needs \T\ fall precautionary measures) done. Abuse screen: Denies threats or abuse. Nutritional screening: No deficits noted. Tuberculosis screening: No symptoms or risk factors identified. Assessment: 11:19 General: Appears in no apparent distress. Behavior is calm, cooperative, appropriate cp4 for age. Vital Signs: 10:41 BP 124 / 93; Pulse 97; Resp 17; Temp 97.3; Pulse Ox 100% ; Weight 67.59 kg; Height 5 jl7 ft. 3 in. ; Pain 0/10; 12:15 BP 124 / 88; Pulse 94; Resp 18; Pulse Ox 98% ; cp4 10:41 Body Mass Index 26.39 (67.59 kg, 160.02 cm) jl7 10:41 Pain Scale: Adult 7 [place] Coma Score: 11:05 Eye Response: spontaneous(4). Motor Response: obeys commands(6). Verbal Response: peg oriented(5). Total: 15. ED Course: 10:32 Patient arrived in ED. mg5 10:32 Aj Doe MD is Attending Physician. peg 10:43 Triage completed. jl7 10:43 Arm band placed on right wrist. EKG completed in triage. Results shown to MD. jl7 11:01 Shelbi Carroll is Primary Nurse. cp4 11:11 Frank Shelton MD is Referral Physician. peg 11:19 Bed in low position. Call light in reach. Side rails up X 1. cp4 11:19 No provider procedures requiring assistance completed. Patient did not have IV access cp4 during this emergency room visit. 12:20 Provided Education on: panic attack.. cp4 Administered Medications: 11:41 Not Given (Patient Refused): clonazepam1 mg PO once cp4 12:14 Not Given (Patient Refused): CeleXA 20 mg PO once cp4 12:14 Not Given (Patient Refused): alprazolamtablet 1 mg PO once cp4 Medication: 11:19 VIS not applicable for this client. cp4 Outcome: 11:11 Discharge ordered by . peg 12:20 Discharged to home ambulatory, cp4 12:20 Condition: stable 12:20 Discharge instructions given to patient, Instructed on discharge instructions, follow up and referral plans. medication usage, Demonstrated understanding of instructions, follow-up care, medications, Prescriptions given X 2, 12:21 Patient left the ED. cp4 Signatures: Aj Doe MD MD cha Leal, Jahala, RN RN Cathy Astudillo mg5 Shelbi Carroll cp4
--- NOTE | 2023-07-06 11:11 | EDPHYS ---
Physician Documentation [facility] Name: Lona Marie Age: 33 yrs Sex: Female : 1990 Arrival Date: 07/06/2023 Time: 10:29 Bed 12 Private MD: GUNJAN Physician Aj Doe HPI: 07/06 11:03 This 33 yrs old Female presents to ER via Ambulatory with complaints of peg Anxiety. 11:03 The patient presents to the emergency department with anxiety, over money, over a peg relationship, over work. Onset: The symptoms/episode began/occurred 5 day(s) ago. Past psychiatric history: Prior diagnosis: depression, Psychiatric medications include: none. Past psychiatric history: Psychiatric medications include:. Associated signs and symptoms: Pertinent positives;. Severity of symptoms: At their worst the symptoms were mild moderate in the emergency department the symptoms are unchanged. The patient has experienced similar episodes in the past, several times. 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 - Social history:: Smoking status: Patient reports the use of cigarette tobacco products, denies chronic smoking, but will smoke occasionally. ROS: 11:05 Constitutional: Negative for fever, chills, and weight loss, Eyes: Negative for injury, peg pain, redness, and discharge, ENT: Negative for injury, pain, and discharge, Neck: Negative for injury, pain, and swelling, Cardiovascular: Negative for chest pain, palpitations, and edema, Respiratory: Negative for shortness of breath, cough, wheezing, and pleuritic chest pain, Abdomen/GI: Negative for abdominal pain, nausea, vomiting, diarrhea, and constipation, Back: Negative for injury and pain, : Negative for injury, bleeding, discharge, and swelling, MS/Extremity: Negative for injury and deformity, Skin: Negative for injury, rash, and discoloration, Neuro: Negative for headache, weakness, numbness, tingling, and seizure, Allergy/Immunology: Negative for hives, rash, and allergies, Endocrine: Negative for neck swelling, polydipsia, polyuria, polyphagia, and marked weight changes, Hematologic/Lymphatic: Negative for swollen nodes, abnormal bleeding, and unusual bruising, 11:05 Psych: Positive for anxiety, depression, insomnia, Exam: 11:05 Constitutional: This is a well developed, well nourished patient who is awake, alert, peg and in no acute distress. Head/Face: Normocephalic, atraumatic. Eyes: Pupils equal round and reactive to light, extra-ocular motions intact. Lids and lashes normal. Conjunctiva and sclera are non-icteric and not injected. Cornea within normal limits. Periorbital areas with no swelling, redness, or edema. ENT: Nares patent. No nasal discharge, no septal abnormalities noted. Tympanic membranes are normal and external auditory canals are clear. Oropharynx with no redness, swelling, or masses, exudates, or evidence of obstruction, uvula midline. Mucous membranes moist. Neck: Trachea midline, no thyromegaly or masses palpated, and no cervical lymphadenopathy. Supple, full range of motion without nuchal rigidity, or vertebral point tenderness. No Meningismus. Chest/axilla: Normal chest wall appearance and motion. Nontender with no deformity. No lesions are appreciated. Cardiovascular: Regular rate and rhythm with a normal S1 and S2. No gallops, murmurs, or rubs. Normal PMI, no JVD. No pulse deficits. Respiratory: Lungs have equal breath sounds bilaterally, clear to auscultation and percussion. No rales, rhonchi or wheezes noted. No increased work of breathing, no retractions or nasal flaring. Abdomen/GI: Soft, non-tender, with normal bowel sounds. No distension or tympany. No guarding or rebound. No evidence of tenderness throughout. Back: No spinal tenderness. No costovertebral tenderness. Full range of motion. Skin: Warm, dry with normal turgor. Normal color with no rashes, no lesions, and no evidence of cellulitis. MS/ Extremity: Pulses equal, no cyanosis. Neurovascular intact. Full, normal range of motion. Neuro: Awake and alert, GCS 15, oriented to person, place, time, and situation. Cranial nerves II-XII grossly intact. Motor strength 5/5 in all extremities. Sensory grossly intact. Cerebellar exam normal. Normal gait. 11:05 Psych: Behavior/mood is pleasant, Affect is calm, Oriented to person, place, time, Patient has no thoughts/intents to harm self or others. Judgement / Insight is normal. Memory is normal. Delusions/hallucinations are not present. 11:09 ECG was reviewed by the Attending Physician. [facility] Vital Signs: 10:41 BP 124 / 93; Pulse 97; Resp 17; Temp 97.3; Pulse Ox 100% ; Weight 67.59 kg; Height 5 jl7 ft. 3 in. ; Pain 0/10; 12:15 BP 124 / 88; Pulse 94; Resp 18; Pulse Ox 98% ; cp4 10:41 Body Mass Index 26.39 (67.59 kg, 160.02 cm) jl7 10:41 Pain Scale: Adult jl7 Cali Coma Score: 11:05 Eye Response: spontaneous(4). Motor Response: obeys commands(6). Verbal Response: peg oriented(5). Total: 15. MDM: 10:32 Patient medically screened. [facility] 11:06 Differential diagnosis: acute psychotic break, depression, psychosis secondary to peg non-compliance. Data reviewed: vital signs, nurses notes, EMS record, EKG. Consideration of Admission/Observation Escalation of care including admission/observation considered. I considered the following discharge prescriptions or medication management in the emergency department Medications were administered in the Emergency Department. See MAR. Independent interpretation of the following test(s) in the Emergency Department EKG: See my EKG interpretation above. Test considered but Not performed: Labs: no labs needed. Care significantly affected by the following chronic conditions: see kailash, reviewed. Counseling: I had a detailed discussion with the patient and/or guardian regarding the historical points, exam findings, and any diagnostic results supporting the discharge/admit diagnosis, the need for outpatient follow up, for definitive care, a family practitioner, a psychiatrist. 11:08 Historians other than the Patient: pt well informed. [facility] EC:09 Rate is 85 beats/min. Rhythm is regular. QRS [place] is Normal. [place] interval is normal. QRS peg interval is normal. QT interval is normal. No Q waves. T waves are Normal. No ST changes noted. Interpreted by me. Reviewed by me. Administered Medications: 11:41 Not Given (Patient Refused): clonazepam1 mg PO once cp4 12:14 Not Given (Patient Refused): CeleXA 20 mg PO once cp4 12:14 Not Given (Patient Refused): alprazolamtablet 1 mg PO once cp4 Disposition Summary: 07/06/23 11:11 Discharge Ordered Notes: Location: Home [facility] Problem: new peg Symptoms: have improved peg Condition: Stable peg Diagnosis - Adjustment disorder with mixed anxiety and depressed mood peg - Insomnia peg Followup: peg - With: Private Physician - When: 2 - 3 days - Reason: Recheck today's complaints, Continuance of care, Re-evaluation by your physician Followup: peg - With: Frank Shelton MD - When: 2 - 3 days - Reason: Recheck today's complaints, Re-evaluation by your physician Discharge Instructions: - Discharge Summary Sheet peg - Adjustment Disorder, Adult peg - Panic Attack peg - Panic Attack, [id number] peg - Supporting Someone With Anxiety peg - Managing Anxiety, Adult [facility] Forms: - Medication Reconciliation Form [facility] - Thank You Letter [facility] - Antibiotic Education peg - Prescription Opioid Use peg - Patient Portal Instructions [facility] - Leadership Thank You Letter [facility] Prescriptions: - Celexa 20 mg Oral Tablet - take 1 tablet ORAL route once daily; 20 tablet; Refills: 0, Product Selection [facility] Permitted - Klonopin 0.5 mg Oral Tablet - take 1 tablet ORAL route every 12 hours As needed; 20 tablet; Refills: 0, [facility] Product Selection Permitted Signatures: Aj Doe MD MD cha Leal, Jahala RN RN Shelbi Gil cp4
[2023-07-06] MEDS ORDERED: clonazePAM 1 MG TAB ONE (11:32)
[2023-07-06] MEDS ORDERED: CITALOPRAM 10 MG TABLET PO SCH (12:00)
[2023-07-06 12:30] VITALS: TEMP 97.3
[2023-07-06 12:32] VITALS: BP 124/88; O2SAT 98
== END 2023-07-06 12:21 | disposition home or self-care (01) ==
LOC: ER 10:29
DX: F43.23 Adjustment disorder with mixed anxiety and depressed mood (principal); G47.00 Insomnia, unspecified; F17.210 Nicotine dependence, cigarettes, uncomplicated; Z88.0 Allergy status to penicillin; Z88.1 Allergy status to other antibiotic agents; Z88.5 Allergy status to narcotic agent; Z88.8 Allergy status to other drugs, medicaments and biological substances; Z91.048 Other nonmedicinal substance allergy status
CPT/HCPCS: 99283

== ENCOUNTER 2023-07-07 01:41 | Emergency (ER) | payer OTHER ==
--- OUTSIDE RECORDS SUMMARY | 2023-07-07 02:03 | XMS REPORT | Continuity of Care Document ---
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 2022-09 Yes clonazepam U nivers 0.5 mg 0-05 0.5 mg ity of tablet 10:54: tablet [place] [address] TAKE 1 Medical TABLET BY Branch MOUTH [...] 800 mg ity of tablet 10:54: tablet [address] levETIRAcet 2022-09 Yes TWICE Unive rs am 500 mg 0-05 DAILY. ity of tablet 10:54: [facility] famotidine 2022-09 Yes famotidine U nivers 20 mg 0-05 20 mg ity of tablet 10:54: tablet [address] [place] [address] clonazePAM 2022-09 Yes clonazepam U nivers 0.5 [...] 800 mg ity of tablet 10:54: tablet [address] [place] [address] levETIRAcet 2022-09 Yes TWICE Unive rs am 500 mg 0-05 DAILY. ity of tablet 10:54: [facility] famotidine 2022-09 Yes famotidine U nivers 20 mg 0-05 20 mg ity of tablet 10:54: tablet [address] [place] [address] clonazePAM 2022-09 Yes clonazepam U nivers 0.5 mg 0-05 0.5 mg ity of tablet 10:54: tablet [place] [address] TAKE 1 Medical TABLET BY Branch MOUTH [...] 800 mg ity of tablet 10:54: tablet [address] levETIRAcet 2022-09 Yes TWICE Unive rs am 500 mg 0-05 DAILY. ity of tablet 10:54: [address] famotidine 2022-09 Yes famotidine U nivers 20 mg 0-05 20 mg ity of tablet 10:54: tablet [address] clonazePAM 2022-09 Yes clonazepam U nivers 0.5 mg 0-05 0.5 mg ity of tablet 10:54: tablet [place] [address] TAKE 1 Medical TABLET BY Branch MOUTH [...] 800 mg ity of tablet 10:54: tablet [facility] Branch levETIRAcet 2022-09 Yes TWICE Unive rs am 500 mg 0-05 DAILY. ity of tablet 10:54: Medical Branch famotidine 2022-09 Yes famotidine U nivers 20 mg 0-05 20 mg ity of tablet 10:54: tablet [address] [place] [address] clonazePAM 2022-09 Yes clonazepam U nivers 0.5 [...] ical ion Branch aerosol inhaler azithromyci Yes [id number] Take two Univers n 6-27 [id number] on first ity of (ZITHROMAX 00:00: day, take [place] Z-OK) 250 00 one a day Medi shanice mg tablet afterwards Bran ch azelastine Yes [id number] 1{spray Use 1 [facility] 137 mcg 6-27 250156 } [place] in ity of (0.1 %) 00:00: each [place] nasal spray 00 nostril in Mn dical the Branch morning and 1 [place] in the evening. Use in each nostril as directed azithromyci 2023-0 Yes [id number] Take two Univers n 6-27 [id number] on first ity of (ZITHROMAX 00:00: day, take [place] Z-OK) 250 00 one a day Medi shanice mg tablet afterwards Bran ch azelastine 2023-0 Yes [id number] 1{spray Use 1 [facility] 137 mcg 6-27 [id number] } [place] in ity of (0.1 %) 00:00: each [place] nasal spray 00 nostril in [facility] [place] morning and 1 [place] in the evening. Use in each nostril as directed azithromyci 2023-0 Yes [id number] Take two Univers n 6-27 [id number] on first ity of (ZITHROMAX 00:00: day, take [place] Z-OK) 250 00 one a day Medi shanice mg tablet afterwards Bran ch azelastine 2023-0 Yes [id number] 1{spray Use 1 [facility] 137 mcg 6-27 012087 } [place] in ity of (0.1 %) 00:00: each [place] nasal spray 00 nostril in [facility] [place] morning and 1 [place] in the evening. Use in each nostril as directed azithromyci 2023-0 Yes [id number] Take two Univers n 6-27 [id number] on first ity of (ZITHROMAX 00:00: day, take [place] Z-OK) 250 00 one a day Medi shanice mg tablet afterwards Bran ch azelastine 2023-0 Yes [id number] 1{spray Use 1 [facility] 137 mcg 6-27 264464 } [place] in ity of (0.1 %) 00:00: each [place] nasal spray 00 nostril in [facility] [place] morning and 1 [place] in the evening. Use in each nostril as directed azithromyci 2023-0 Yes [id number] Take two Univers n 6-27 [id number] on first ity of (ZITHROMAX 00:00: day, take [place] Z-OK) 250 00 one a day Medi shanice mg tablet afterwards Bran ch azelastine 2023-0 Yes [id number] 1{spray Use 1 [facility] 137 mcg 6-27 094664 } [place] in ity of (0.1 %) 00:00: each [place] nasal spray 00 nostril in Me dical the Branch morning and 1 [place] in the evening. Use in each nostril as directed azithromyci 2023-0 Yes [id number] Take two Univers n 6-27 [id number] on first ity of (ZITHROMAX 00:00: day, take [place] Z-OK) 250 00 one a day Medi shanice mg tablet afterwards Bran ch azelastine 2023-0 Yes [id number] 1{spray Use 1 [facility] 137 mcg 6 226086 } [place] in ity of (0.1 %) 00:00: each [place] nasal spray 00 nostril in Mn dical the Branch morning and 1 [place] in the evening. Use in each nostril as directed azithromyci 2023-0 Yes [id number] Take two Univers n 627 [id number] on first ity of (ZITHROMAX 00:00: day, take [place] Z-OK) 250 00 one a day Medi shanice mg tablet afterwards Bran ch azelastine 2023-0 Yes [id number] 1{spray Use 1 [facility] 137 mcg 6 259600 } [place] in ity of (0.1 %) 00:00: each [place] nasal spray 00 nostril in Mn dical the Branch morning and 1 [place] in the evening. Use in each nostril as directed azithromyci 2023-0 Yes [id number] Take two Univers n 6-27 [id number] on first ity of (ZITHROMAX 00:00: day, take [place] Z-OK) 250 00 one a day Medi shanice mg tablet afterwards Bran ch azelastine 2023-0 Yes [id number] 1{spray Use 1 [facility] 137 mcg 627 256372 } [place] in ity of (0.1 %) 00:00: each [place] nasal spray 00 nostril in Mn dical the Branch morning and 1 [place] in the evening. Use in each nostril as directed azithromyci 2023-0 Yes [id number] Take two Univers n 627 [id number] on first ity of (ZITHROMAX 00:00: day, take [place] Z-OK) 250 00 one a day Medi shanice mg tablet afterwards Bran ch azelastine 2023-0 Yes [id number] 1{spray Use 1 [facility] 137 mcg 6-27 467745 } [place] in ity of (0.1 %) 00:00: each [place] nasal spray 00 nostril in Me dical the Branch morning and 1 [place] in the evening. Use in each nostril as directed azithromyci 2022-0 Yes [id number] Take two Univers n 6-27 [id number] on first ity of (ZITHROMAX 00:00: day, take [place] Z-OK) 250 00 one a day Medi shanice mg tablet afterwards Bran ch azelastine 2022-0 Yes [id number] 1{spray Use 1 [facility] 137 mcg 6-27 651226 } [place] in ity of (0.1 %) 00:00: each [place] nasal spray 00 nostril in Mn dical the Branch morning and 1 [place] in the evening. Use in each nostril as directed azelastine 2022-0 Yes [id number] 1{spray Use 1 Univers 137 mcg 6-27 093479 } [place] in ity of (0.1 %) 00:00: each [place] nasal spray 00 nostril in Mn dical the Branch morning and 1 [place] in the evening. Use in each nostril as directed azelastine 3-0 Yes [id number] 1{spray Use 1 Univers 137 mcg 6-27 182186 } [place] in ity of (0.1 %) 00:00: each [place] nasal spray 00 nostril in Me dical the Branch morning and 1 [place] in the evening. Use in each nostril as directed azelastine 3-0 Yes [id number] 1{spray Use 1 Univers 137 mcg 6-27 279629 } [place] in ity of (0.1 %) 00:00: each [place] nasal spray 00 nostril in Mn dical the Branch morning and 1 [place] in the evening. Use in each nostril as directed azelastine 2023-0 Yes [id number] 1{spray Use 1 [facility] 137 mcg 6-27 449104 } [place] in ity of (0.1 %) 00:00: each [place] nasal spray 00 nostril in Mn dical the Branch morning and 1 [place] in the evening. Use in each nostril as directed azelastine 2023-0 Yes [id number] 1{spray Use 1 [facility] 137 mcg 6-27 643899 } [place] in ity of (0.1 %) 00:00: each [place] nasal spray 00 nostril in Me dical the Branch morning and 1 [place] in the evening. Use in each nostril as directed azelastine 2023-0 Yes [id number] 1{spray Use 1 [facility] 137 mcg 6-27 214604 } [place] in ity of (0.1 %) 00:00: each [place] nasal spray 00 nostril in Me dical the Branch morning and 1 [place] in the evening. Use in each nostril as directed azelastine 2023-0 Yes [id number] 1{spray Use 1 [facility] 137 mcg 6-27 237787 } [place] in ity of (0.1 %) 00:00: each [place] nasal spray 00 nostril in Me dical the Branch morning and 1 [place] in the evening. Use in each nostril as directed azelastine 2023-0 Yes [id number] 1{spray Use 1 [facility] 137 mcg 6-27 147581 } [place] ity of (0.1 %) 00:00: each [place] nasal spray 00 nostril in Me dical the Branch morning and 1 [place] in the evening. Use in each nostril as directed azelastine 2023-0 Yes [id number] 1{spray Use 1 [facility] 137 mcg 6-27 [id number] } [place] in ity of (0.1 %) 00:00: each [place] nasal spray 00 nostril in Me dical the Branch morning and 1 [place] in the evening. Use in each nostril as directed azelastine 2023-0 Yes [id number] 1{spray Use 1 [facility] 137 mcg 6-27 835848 } [place] in ity of (0.1 %) 00:00: each [place] nasal spray 00 nostril in Me dical the Branch morning and 1 [place] in the evening. Use in each nostril as directed azithromyci 2022-0 2022- No [id number] Take two Univers n 6-27 10-05 [id number] on first ity of (ZITHROMAX 00:00: 00:00 day, take [place] Z-OK) 250 00 :00 one a day Medi shanice mg tablet afterwards Bran ch azithromyci 2022-0 2022- No [id number] Take two Univers n 6-27 10-05 [id number] on first ity of (ZITHROMAX 00:00: 00:00 day, take [place] Z-OK) 250 00 :00 one a day Medi shanice mg tablet afterwards Bran ch morpHINE (4 2022- No 4mg 4 mg, Slow Univers mg/mL) 01-2118 IV Push, ity of injection 4 23:45: 23:08 ONCE, 1 [place] mg 00 :00 dose, On Medical [facility] 01/21/23 at 1845, Routine ondansetron 2022- No 4mg 4 mg, Slow Univers (ZOFRAN 01-2118 IV Push, ity of (PF)) 23:00: 23:08 ONCE, 1 [place] injection 4 00 :00 dose, On Medi shanice mg [facility] 01/21/23 at 1800, LUPE NaCl 0.9% 2022- No 1000mL at 999 Uni vers (NS) IV 01-21 mL/hr, ity of infusion 21:30: 23:45 Intravenou [place] 1,000 mL 00 :00 s, ONCE, 1 Medic al dose, On [facility] 01/21/23 at 1630, Routine FENTanyl PF 2022- No 50ug 50 mcg, Un travis (SUBLIMAZE 01-21 Slow IV ity o f (PF)) 21:15: 20:56 Push, [place] injection 00 :00 ONCE, 1 Medical 50 mcg dose, On [facility] 01/21/23 at 1615, Routine iopamidol 2022- No [id number] 50mL 50 mL, Univers (ISOVUE 01-2118 Intravenou ity o f 370-500 mL) 21:00: 21:02 s, ONCE, 1 [place] injection 00 :00 dose, On Medica l 50 mL [facility] 01/21/23 at 1600, Routine ondansetron 2022- No 4mg 4 mg, Slow Univers (ZOFRAN 01-2118 IV Push, ity of (PF)) 20:30: 20:55 ONCE, 1 [place] injection 4 00 :00 dose, On Medi shanice mg [facility] 01/21/23 at 1530, LUPE sucralfate 2022-2022- No [id number] 1g Take 1 Univers 1 gram 01-21 [...] shanice 1:1:1 Fri Branch ([facility] 01/15/[address] [facility]) 0600, oral Routine suspension 15 mL maalox:diph 2022-0 Yes [id number] 15mL Take 15 mL Univers enhydrAMINE 5-12 by mouth ity of :lidocaine 00:00: as needed [place] 2 % viscous 00 for Oral Medi shanice 1:1:1 mucositis Branch (EPIGASTRI C PAIN). ondansetron 2022-0 Yes [id number] 4mg Take 1 Univers (ZOFRAN) 4 5-12 tablet by ity of mg tablet 00:00: mouth [place] 00 every 8 Medical (eight) Branch hours as needed for Nausea and Vomiting (N/V). maalox:diph 2022-0 Yes [id number] 15mL Take 15 mL [facility] enhydrAMINE 5-12 by mouth ity of :lidocaine 00:00: as needed [place] 2 % viscous 00 for Oral Medi shanice 1:1:1 mucositis Branch (EPIGASTRI C PAIN). ondansetron 2022-0 Yes [id number] 4mg Take 1 Univers (ZOFRAN) 4 5-12 tablet by ity of mg tablet 00:00: mouth [place] 00 every 8 Medical (eight) Branch hours as needed for Nausea and Vomiting (N/V). proMETHazin 2022-0 Yes [id number] 25mg Take 1 Univers e 25 mg 5-12 tablet by ity of tablet 00:00: mouth [place] 00 every 6 Medical (six) Branch hours as needed for Nausea and Vomiting (N/V). sucralfate 2022-0 Yes [id number] 1g Take 1 U nivers 1 gram 5-12 tablet by ity of tablet 00:00: mouth [place] 00 before Medical meals and Branch at bedtime. esomeprazol 3-0 Yes [id number] 40mg Take 1 Univers e (NEXIUM) 5-12 capsule by ity of 40 mg 00:00: mouth [place] capsule 00 daily with Medica l breakfast. Branch maalox:diph 2022-0 Yes [id number] 15mL Take 15 mL Univers enhydrAMINE 5-12 by mouth ity of :lidocaine 00:00: as needed [place] 2 % viscous 00 for Oral Medi shanice 1:1:1 mucositis Branch (EPIGASTRI C PAIN). ondansetron 2022-0 Yes [id number] 4mg Take 1 Univers (ZOFRAN) 4 5-12 tablet by ity of mg tablet 00:00: mouth [place] 00 every 8 Medical (eight) Branch hours as needed for Nausea and Vomiting (N/V). proMETHazin 2022-0 Yes [id number] 25mg Take 1 Univers e 25 mg 5-12 tablet by ity of tablet 00:00: mouth [place] 00 every 6 Medical (six) Branch hours as needed for Nausea and Vomiting (N/V). sucralfate 2022-0 Yes [id number] 1g Take 1 U nivers 1 gram 5-12 tablet by ity of tablet 00:00: mouth [place] 00 before Medical meals and Branch at bedtime. esomeprazol 2022-0 Yes [id number] 40mg Take 1 Univers e (NEXIUM) 5-12 capsule by ity of 40 mg 00:00: mouth [place] capsule 00 daily with Medica l breakfast. Branch maalox:diph 2022-0 Yes [id number] 15mL Take 15 mL [facility] enhydrAMINE 5-12 by mouth ity of :lidocaine 00:00: as needed [place] 2 % viscous 00 for Oral Medi shanice 1:1:1 mucositis Branch (EPIGASTRI C PAIN). proMETHazin 2022-0 Yes [id number] 25mg Take 1 Univers e 25 mg 5-12 tablet by ity of tablet 00:00: mouth [place] 00 every 6 Medical (six) Branch hours as needed for Nausea and Vomiting (N/V). sucralfate 2022-0 Yes [id number] 1g Take 1 U nivers 1 gram 5-12 tablet by ity of tablet 00:00: mouth [place] 00 before Medical meals and Branch at bedtime. esomeprazol 3-0 Yes [id number] 40mg Take 1 Univers e (NEXIUM) 5-12 capsule by ity of 40 mg 00:00: mouth [place] capsule 00 daily with Medica l breakfast. Branch maalox:diph 3-0 Yes [id number] 15mL Take 15 mL Univers enhydrAMINE 5-12 by mouth ity of :lidocaine 00:00: as needed [place] 2 % viscous 00 for Oral Medi shanice 1:1:1 mucositis Branch (EPIGASTRI C PAIN). proMETHazin 3-0 Yes [id number] 25mg Take 1 Univers e 25 mg 5-12 tablet by ity of tablet 00:00: mouth [place] 00 every 6 Medical (six) Branch hours as needed for Nausea and Vomiting (N/V). sucralfate 2023-0 Yes [id number] 1g Take 1 U nivers 1 gram 5-12 tablet by ity of tablet 00:00: mouth [place] 00 before Medical meals and Branch at bedtime. esomeprazol 2023-0 Yes [id number] 40mg Take 1 Univers e (NEXIUM) 5-12 capsule by ity of 40 mg 00:00: mouth [place] capsule 00 daily with Medica l breakfast. Branch maalox:diph 3-0 Yes [id number] 15mL Take 15 mL [facility] enhydrAMINE 5-12 by mouth ity of :lidocaine 00:00: as needed [place] 2 % viscous 00 for Oral Medi shanice 1:1:1 mucositis Branch (EPIGASTRI C PAIN). proMETHazin 3-0 Yes [id number] 25mg Take 1 Univers e 25 mg 5-12 tablet by ity of tablet 00:00: mouth [place] 00 every 6 Medical (six) Branch hours as needed for Nausea and Vomiting (N/V). sucralfate 3-0 Yes [id number] 1g Take 1 U nivers 1 gram 5-12 tablet by ity of tablet 00:00: mouth [place] 00 before Medical meals and Branch at bedtime. esomeprazol 3-0 Yes [id number] 40mg Take 1 Univers e (NEXIUM) 5-12 capsule by ity of 40 mg 00:00: mouth [place] capsule 00 daily with Medica l breakfast. Branch maalox:diph 2023-0 Yes [id number] 15mL Take 15 mL [facility] enhydrAMINE 5-12 by mouth ity of :lidocaine 00:00: as needed [place] 2 % viscous 00 for Oral Medi shanice 1:1:1 mucositis Branch (EPIGASTRI C PAIN). proMETHazin 2023-0 Yes [id number] 25mg Take 1 Univers e 25 mg 5-12 tablet by ity of tablet 00:00: mouth [place] 00 every 6 Medical (six) Branch hours as needed for Nausea and Vomiting (N/V). sucralfate 2023-0 Yes [id number] 1g Take 1 U nivers 1 gram 5-12 tablet by ity of tablet 00:00: mouth [place] 00 before Medical meals and Branch at bedtime. esomeprazol 2023-0 Yes [id number] 40mg Take 1 Univers e (NEXIUM) 5-12 capsule by ity of 40 mg 00:00: mouth [place] capsule 00 daily with Medica l breakfast. Branch maalox:diph 3-0 Yes [id number] 15mL Take 15 mL [facility] enhydrAMINE 5-12 by mouth ity of :lidocaine 00:00: as needed [place] 2 % viscous 00 for Oral Medi shanice 1:1:1 mucositis Branch (EPIGASTRI C PAIN). proMETHazin 3-0 Yes [id number] 25mg Take 1 Univers e 25 mg 5-12 tablet by ity of tablet 00:00: mouth [place] 00 every 6 Medical (six) Branch hours as needed for Nausea and Vomiting (N/V). sucralfate 3-0 Yes [id number] 1g Take 1 U nivers 1 gram 5-12 tablet by ity of tablet 00:00: mouth [place] 00 before Medical meals and Branch at bedtime. esomeprazol 3-0 Yes [id number] 40mg Take 1 Univers e (NEXIUM) 5-12 capsule by ity of 40 mg 00:00: mouth [place] capsule 00 daily with Medica l breakfast. Branch maalox:diph 3-0 Yes [id number] 15mL Take 15 mL [facility] enhydrAMINE 5-12 by mouth ity of :lidocaine 00:00: as needed [place] 2 % viscous 00 for Oral Medi shanice 1:1:1 mucositis Branch (EPIGASTRI C PAIN). proMETHazin 2023-0 Yes [id number] 25mg Take 1 Univers e 25 mg 5-12 tablet by ity of tablet 00:00: mouth [place] 00 every 6 Medical (six) Branch hours as needed for Nausea and Vomiting (N/V). sucralfate 2023-0 Yes [id number] 1g Take 1 U nivers 1 gram 5-12 tablet by ity of tablet 00:00: mouth [place] 00 before Medical meals and Branch at bedtime. esomeprazol 2023-0 Yes [id number] 40mg Take 1 Univers e (NEXIUM) 5-12 capsule by ity of 40 mg 00:00: mouth [place] capsule 00 daily with Medica l breakfast. Branch maalox:diph 3-0 Yes [id number] 15mL Take 15 mL [facility] enhydrAMINE 5-12 by mouth ity of :lidocaine 00:00: as needed [place] 2 % viscous 00 for Oral Medi shanice 1:1:1 mucositis Branch (EPIGASTRI C PAIN). proMETHazin 2023-0 Yes [id number] 25mg Take 1 Univers e 25 mg 5-12 tablet by ity of tablet 00:00: mouth [place] 00 every 6 Medical (six) Branch hours as needed for Nausea and Vomiting (N/V). sucralfate 2023-0 Yes [id number] 1g Take 1 U nivers 1 gram 5-12 tablet by ity of tablet 00:00: mouth [place] 00 before Medical meals and Branch at bedtime. esomeprazol 3-0 Yes [id number] 40mg Take 1 Univers e (NEXIUM) 5-12 capsule by ity of 40 mg 00:00: mouth [place] capsule 00 daily with Medica l breakfast. Branch maalox:diph 3-0 Yes [id number] 15mL Take 15 mL [facility] enhydrAMINE 5-12 by mouth ity of :lidocaine 00:00: as needed [place] 2 % viscous 00 for Oral Medi shanice 1:1:1 mucositis Branch (EPIGASTRI C PAIN). proMETHazin 3-0 Yes [id number] 25mg Take 1 Univers e 25 mg 5-12 tablet by ity of tablet 00:00: mouth [place] 00 every 6 Medical (six) Branch hours as needed for Nausea and Vomiting (N/V). sucralfate 2023-0 Yes [id number] 1g Take 1 U nivers 1 gram 5-12 tablet by ity of tablet 00:00: mouth [place] 00 before Medical meals and Branch at bedtime. esomeprazol 2023-0 Yes [id number] 40mg Take 1 Univers e (NEXIUM) 5-12 capsule by ity of 40 mg 00:00: mouth [place] capsule 00 daily with Medica l breakfast. Branch maalox:diph 2023-0 Yes [id number] 15mL Take 15 mL [facility] enhydrAMINE 5-12 by mouth ity of :lidocaine 00:00: as needed [place] 2 % viscous 00 for Oral Medi shanice 1:1:1 mucositis Branch (EPIGASTRI C PAIN). proMETHazin 2022-0 Yes [id number] 25mg Take 1 Univers e 25 mg 5-12 tablet by ity of tablet 00:00: mouth [place] 00 every 6 Medical (six) Branch hours as needed for Nausea and Vomiting (N/V). sucralfate 2022-0 Yes [id number] 1g Take 1 U nivers 1 gram 5-12 tablet by ity of tablet 00:00: mouth [place] 00 before Medical meals and Branch at bedtime. esomeprazol 2022-0 Yes [id number] 40mg Take 1 Univers e (NEXIUM) 5-12 capsule by ity of 40 mg 00:00: mouth [place] capsule 00 daily with Medica l breakfast. Branch maalox:diph 2022-0 Yes [id number] 15mL Take 15 mL [facility] enhydrAMINE 5-12 by mouth ity of :lidocaine 00:00: as needed [place] 2 % viscous 00 for Oral Medi shanice 1:1:1 mucositis Branch (EPIGASTRI C PAIN). proMETHazin 2022-0 Yes [id number] 25mg Take 1 Univers e 25 mg 5-12 tablet by ity of tablet 00:00: mouth [place] 00 every 6 Medical (six) Branch hours as needed for Nausea and Vomiting (N/V). sucralfate 2022-0 Yes [id number] 1g Take 1 U nivers 1 gram 5-12 tablet by ity of tablet 00:00: mouth [place] 00 before Medical meals and Branch at bedtime. esomeprazol 3-0 Yes [id number] 40mg Take 1 Univers e (NEXIUM) 5-12 capsule by ity of 40 mg 00:00: mouth [place] capsule 00 daily with Medica l breakfast. Branch maalox:diph 2022-0 Yes [id number] 15mL Take 15 mL [facility] enhydrAMINE 5-12 by mouth ity of :lidocaine 00:00: as needed [place] 2 % viscous 00 for Oral Medi shanice 1:1:1 mucositis Branch (EPIGASTRI C PAIN). proMETHazin 2023-0 Yes [id number] 25mg Take 1 Univers e 25 mg 5-12 tablet by ity of tablet 00:00: mouth [place] 00 every 6 Medical (six) Branch hours as needed for Nausea and Vomiting (N/V). sucralfate 3-0 Yes [id number] 1g Take 1 U nivers 1 gram 5-12 tablet by ity of tablet 00:00: mouth [place] 00 before Medical meals and Branch at bedtime. esomeprazol 3-0 Yes [id number] 40mg Take 1 Univers e (NEXIUM) 5-12 capsule by ity of 40 mg 00:00: mouth [place] capsule 00 daily with Medica l breakfast. Branch maalox:diph 3-0 Yes [id number] 15mL Take 15 mL [facility] enhydrAMINE 5-12 by mouth ity of :lidocaine 00:00: as needed [place] 2 % viscous 00 for Oral Medi shanice 1:1:1 mucositis Branch (EPIGASTRI C PAIN). proMETHazin 2022-0 Yes [id number] 25mg Take 1 Univers e 25 mg 5-12 tablet by ity of tablet 00:00: mouth [place] 00 every 6 Medical (six) Branch hours as needed for Nausea and Vomiting (N/V). sucralfate 2022-0 Yes [id number] 1g Take 1 U nivers 1 gram 5-12 tablet by ity of tablet 00:00: mouth [place] 00 before Medical meals and Branch at bedtime. esomeprazol 3-0 Yes [id number] 40mg Take 1 Univers e (NEXIUM) 5-12 capsule by ity of 40 mg 00:00: mouth [place] capsule 00 daily with Medica l breakfast. Branch maalox:diph 3-0 Yes [id number] 15mL Take 15 mL [facility] enhydrAMINE 5-12 by mouth ity of :lidocaine 00:00: as needed [place] 2 % viscous 00 for Oral Medi shanice 1:1:1 mucositis Branch (EPIGASTRI C PAIN). proMETHazin 3-0 Yes [id number] 25mg Take 1 Univers e 25 mg 5-12 tablet by ity of tablet 00:00: mouth [place] 00 every 6 Medical (six) Branch hours as needed for Nausea and Vomiting (N/V). sucralfate 2023-0 Yes [id number] 1g Take 1 U nivers 1 gram 5-12 tablet by ity of tablet 00:00: mouth [place] 00 before Medical meals and Branch at bedtime. esomeprazol 3-0 Yes [id number] 40mg Take 1 Univers e (NEXIUM) 5-12 capsule by ity of 40 mg 00:00: mouth [place] capsule 00 daily with Medica l breakfast. Branch maalox:diph 2022-0 Yes [id number] 15mL Take 15 mL [facility] enhydrAMINE 5-12 by mouth ity of :lidocaine 00:00: as needed [place] 2 % viscous 00 for Oral Medi shanice 1:1:1 mucositis Branch (EPIGASTRI C PAIN). proMETHazin 2022-0 Yes [id number] 25mg Take 1 Univers e 25 mg 5-12 tablet by ity of tablet 00:00: mouth [place] 00 every 6 Medical (six) Branch hours as needed for Nausea and Vomiting (N/V). sucralfate 2022-0 Yes [id number] 1g Take 1 U nivers 1 gram 5-12 tablet by ity of tablet 00:00: mouth [place] 00 before Medical meals and Branch at bedtime. esomeprazol 2022-0 Yes [id number] 40mg Take 1 Univers e (NEXIUM) 5-12 capsule by ity of 40 mg 00:00: mouth [place] capsule 00 daily with Medica l breakfast. Branch maalox:diph 2022-0 Yes [id number] 15mL Take 15 mL [facility] enhydrAMINE 5-12 by mouth ity of :lidocaine 00:00: as needed [place] 2 % viscous 00 for Oral Medi shanice 1:1:1 mucositis Branch (EPIGASTRI C PAIN). proMETHazin 3-0 Yes [id number] 25mg Take 1 [facility] e 25 mg 5-12 tablet by ity of tablet 00:00: mouth [place] 00 every 6 Medical (six) Branch hours as needed for Nausea and Vomiting (N/V). sucralfate 3-0 Yes [id number] 1g Take 1 U nivers 1 gram 5-12 tablet by ity of tablet 00:00: mouth [place] 00 before Medical meals and Branch at bedtime. esomeprazol 3-0 Yes [id number] 40mg Take 1 Univers e (NEXIUM) 5-12 capsule by ity of 40 mg 00:00: mouth [place] capsule 00 daily with Medica l breakfast. Branch maalox:diph 3-0 Yes [id number] 15mL Take 15 mL [facility] enhydrAMINE 5-12 by mouth ity of :lidocaine 00:00: as needed [place] 2 % viscous 00 for Oral Medi shanice 1:1:1 mucositis Branch (EPIGASTRI C PAIN). proMETHazin 3-0 Yes [id number] 25mg Take 1 [facility] e 25 mg 5-12 tablet by ity of tablet 00:00: mouth [place] 00 every 6 Medical (six) Branch hours as needed for Nausea and Vomiting (N/V). sucralfate 3-0 Yes [id number] 1g Take 1 U nivers 1 gram 5-12 tablet by ity of tablet 00:00: mouth [place] 00 before Medical meals and Branch at bedtime. esomeprazol 3-0 Yes [id number] 40mg Take 1 [facility] e (NEXIUM) 5-12 capsule by ity of 40 mg 00:00: mouth [place] capsule 00 daily with Medica l breakfast. Branch maalox:diph 2022-0 Yes [id number] 15mL Take 15 mL [facility] enhydrAMINE 5-12 by mouth ity of :lidocaine 00:00: as needed [place] 2 % viscous 00 for Oral Medi shanice 1:1:1 mucositis Branch (EPIGASTRI C PAIN). proMETHazin 2022-0 Yes [id number] 25mg Take 1 [facility] e 25 mg 5-12 tablet by ity of tablet 00:00: mouth [place] 00 every 6 Medical (six) Branch hours as needed for Nausea and Vomiting (N/V). sucralfate 3-0 Yes [id number] 1g Take 1 U nivers 1 gram 5-12 tablet by ity of tablet 00:00: mouth [place] 00 before Medical meals and Branch at bedtime. esomeprazol 2023-0 Yes [id number] 40mg Take 1 [facility] e (NEXIUM) 5-12 capsule by ity of 40 mg 00:00: mouth [place] capsule 00 daily with Medica l breakfast. Branch maalox:diph 3-0 Yes [id number] 15mL Take 15 mL [facility] enhydrAMINE 5-12 by mouth ity of :lidocaine 00:00: as needed [place] 2 % viscous 00 for Oral Medi shanice 1:1:1 mucositis Branch (EPIGASTRI C PAIN). proMETHazin 3-0 Yes [id number] 25mg Take 1 [facility] e 25 mg 5-12 tablet by ity of tablet 00:00: mouth [place] 00 every 6 Medical (six) Branch hours as needed for Nausea and Vomiting (N/V). sucralfate 3-0 Yes [id number] 1g Take 1 U nivers 1 gram 5-12 tablet by ity of tablet 00:00: mouth [place] 00 before Medical meals and Branch at bedtime. esomeprazol 3-0 Yes [id number] 40mg Take 1 [facility] e (NEXIUM) 5-12 capsule by ity of 40 mg 00:00: mouth [place] capsule 00 daily with Medica l breakfast. Branch maalox:diph 2022-0 Yes [id number] 15mL Take 15 mL [facility] enhydrAMINE 5-12 by mouth ity of :lidocaine 00:00: as needed [place] 2 % viscous 00 for Oral Medi shanice 1:1:1 mucositis Branch (EPIGASTRI C PAIN). proMETHazin 2022-0 Yes [id number] 25mg Take 1 [facility] e 25 mg 5-12 tablet by ity of tablet 00:00: mouth [place] 00 every 6 Medical (six) Branch hours as needed for Nausea and Vomiting (N/V). sucralfate 3-0 Yes [id number] 1g Take 1 U nivers 1 gram 5-12 tablet by ity of tablet 00:00: mouth [place] 00 before Medical meals and Branch at bedtime. esomeprazol 3-0 Yes [id number] 40mg Take 1 [facility] e (NEXIUM) 5-12 capsule by ity of 40 mg 00:00: mouth [place] capsule 00 daily with Medica l breakfast. Branch maalox:diph 3-0 Yes [id number] 15mL Take 15 mL [facility] enhydrAMINE 5-12 by mouth ity of :lidocaine 00:00: as needed [place] 2 % viscous 00 for Oral Medi shanice 1:1:1 mucositis Branch (EPIGASTRI C PAIN). proMETHazin 3-0 Yes [id number] 25mg Take 1 [facility] e 25 mg 5-12 tablet by ity of tablet 00:00: mouth [place] 00 every 6 Medical (six) Branch hours as needed for Nausea and Vomiting (N/V). sucralfate 2022-0 Yes [id number] 1g Take 1 U nivers 1 gram 5-12 tablet by ity of tablet 00:00: mouth [place] 00 before Medical meals and Branch at bedtime. esomeprazol 2022-0 Yes [id number] 40mg Take 1 [facility] e (NEXIUM) 5-12 capsule by ity of 40 mg 00:00: mouth [place] capsule 00 daily with Medica l breakfast. Branch ondansetron 2022- No [id number] 4mg Take 1 Univers (ZOFRAN) 4 -08 11- tablet by ity of mg tablet 00:00: 00:00 mouth [place] 00 :00 every 8 Medical (eight) Branch hours as needed for Nausea and Vomiting (N/V). proMETHazin 2022-0 2022- No [id number] 25mg Take 1 [facility] e 25 mg 5-12 05-12 tablet by ity of tablet 00:00: 00:00 mouth [place] 00 :00 every 6 Medical (six) Branch hours as needed for Nausea and Vomiting (N/V). sucralfate 2022-0 2022- No [id number] 1g Take 1 [facility] 1 gram 5-12 05-12 tablet by ity of tablet 00:00: 00:00 mouth [place] 00 :00 before Medical meals and Branch at bedtime. esomeprazol 2022-0 2022- No [id number] 40mg Take 1 Univers e (NEXIUM) 5-12 05-12 capsule by it y of 40 mg 00:00: 00:00 mouth [place] capsule 00 :00 daily with Medica l breakfast. Branch maalox:diph 2022-0 3- No 15mL 15 mL, Uni vers enhydrAMINE 12-31 Oral ity of :lidocaine 06:45: 05:52 ([place] & [place] 2 % viscous 00 :00 Swallow), Med ical 1:1:1 ONCE, 1 Branch (FIRST-MOUT dose, On HWASH BLM) [place] oral 12/31/22 at suspension 0145, 15 mL Routine iopamidol 2022-0 3- No [id number] 70mL 70 mL, Univers (ISOVUE 12-30 Intravenou ity o f 370-500 mL) 17:30: 17:25 s, ONCE, 1 [place] injection 00 :00 dose, On Medica l 70 mL [facility] 12/30/22 at 1230, Routine nitroglycer No [id number] .8mg 0.8 mg, Univers in 12-30 Sublingual ity of (NITROSTAT) 17:15: 17:15 , ONCE, 1 [place] sublingual 00 :00 dose, On Medic al tablet 0.8 [facility] Branch mg 12/30/22 at 1215, Routine metoprolol 2022- No [id number] 100mg 100 mg, Univers tartrate 12-30 Oral, ity of (LOPRESSOR) 16:15: 16:41 ONCE, 1 [place] tablet 100 00 :00 dose, On Medic al mg [facility] 12/30/22 at 1141, Routine valACYclovi Yes [id number] 1g Take 1 Univers r 1 gram 4-21 tablet by ity of tablet 00:00: mouth in [address] and 1 tablet at noon and 1 tablet in the evening. valACYclovi 0 Yes [id number] 1g Take 1 Univers r 1 gram 4-21 tablet by ity of tablet 00:00: mouth in [address] and 1 tablet at noon and 1 tablet in the evening. valACYclovi 0 Yes [id number] 1g Take 1 Univers r 1 gram 4-21 tablet by ity of tablet 00:00: mouth in [address] and 1 tablet at noon and 1 tablet in the evening. valACYclovi 0 Yes [id number] 1g Take 1 Univers r 1 gram 4-21 tablet by ity of tablet 00:00: mouth in [address] and 1 tablet at noon and 1 tablet in the evening. valACYclovi 0 Yes [id number] 1g Take 1 Univers r 1 gram 4-21 tablet by ity of tablet 00:00: mouth in [address] and 1 tablet at noon and 1 tablet in the evening. valACYclovi 0 Yes [id number] 1g Take 1 Univers r 1 gram 4-21 tablet by ity of tablet 00:00: mouth in [place] 00 the Medical morning Branch and 1 tablet at noon and 1 tablet in the evening. valACYclovi 2022-0 Yes [id number] 1g Take 1 Univers r 1 gram 4-21 tablet by ity of tablet 00:00: mouth in [place] 00 the Medical morning Branch and 1 tablet at noon and 1 tablet in the evening. valACYclovi 2022-0 Yes [id number] 1g Take 1 Univers r 1 gram 4-21 tablet by ity of tablet 00:00: mouth in [place] 00 the Medical morning Branch and 1 tablet at noon and 1 tablet in the evening. valACYclovi 2022-0 Yes [id number] 1g Take 1 Univers r 1 gram 4-21 tablet by ity of tablet 00:00: mouth in [place] 00 the Medical morning Branch and 1 tablet at noon and 1 tablet in the evening. valACYclovi 2022-0 Yes [id number] 1g Take 1 Univers r 1 gram 4-21 tablet by ity of tablet 00:00: mouth in [place] 00 the Medical morning Branch and 1 tablet at noon and 1 tablet in the evening. valACYclovi 2022-0 Yes [id number] 1g Take 1 Univers r 1 gram 4-21 tablet by ity of tablet 00:00: mouth in [place] 00 the Medical morning Branch and 1 tablet at noon and 1 tablet in the evening. valACYclovi 2022-0 Yes [id number] 1g Take 1 Univers r 1 gram 4-21 tablet by ity of tablet 00:00: mouth in [place] 00 the Medical morning Branch and 1 tablet at noon and 1 tablet in the evening. valACYclovi 2022-0 Yes [id number] 1g Take 1 Univers r 1 gram 4-21 tablet by ity of tablet 00:00: mouth in [place] 00 the Medical morning Branch and 1 tablet at noon and 1 tablet in the evening. valACYclovi 2022-0 Yes [id number] 1g Take 1 Univers r 1 gram 4-21 tablet by ity of tablet 00:00: mouth in [place] 00 the Medical morning Branch and 1 tablet at noon and 1 tablet in the evening. valACYclovi 3-0 2022- No [id number] 1g Take 1 Univers r 1 gram 4-21 05-12 tablet by ity o f tablet 00:00: 00:00 mouth in [place] 00 :00 the Medical morning Branch and 1 tablet at noon and 1 tablet in the evening. valACYclovi 2022-0 2022- No [id number] 1g Take 1 Univers r 1 gram 4-21 -29 tablet by ity o f tablet 00:00: 04:59 mouth in [place] 00 :00 the [facility] and 1 tablet at noon and 1 tablet in the evening. Do all this for 7 days. valACYclovi 2022-0 2022- No [id number] 1g Take 1 Univers r 1 gram 4-21 -21 tablet by ity o f tablet 00:00: 00:00 mouth in [place] 00 :00 the [facility] and 1 tablet at noon and 1 tablet in the evening. Do all this for 7 days. levETIRAcet Yes TWICE Unive rs am 500 mg 4-18 DAILY. ity of tablet 09:12: [address] gabapentin Yes gabapentin U nivers 300 mg 4-18 300 mg ity of capsule 09:12: capsule [address] famotidine Yes famotidine U nivers 20 mg 4-18 20 mg ity of tablet 09:12: tablet [address] clonazePAM Yes clonazepam U nivers 0.5 mg 4-18 0.5 mg ity of tablet 09:12: tablet [place] [address] TAKE 1 Medical TABLET BY Branch MOUTH EVERY DAY AT BEDTIME NEEDED FOR SEVERE ANXIETY/PA STACEY ATTACK buPROPion Yes 300mg Take 1 Unive rs XL 300 mg 4-18 tablet by ity o f 24 hr 09:12: mouth. [address] buprenorphi Yes [place] Uni vers ne [...] mg 4-18 DAILY. ity of tablet 09:12: [address] gabapentin 2022-0 Yes gabapentin U nivers 300 mg 4-18 300 mg ity of capsule 09:12: capsule [address] famotidine 0 Yes famotidine U nivers 20 mg 4-18 20 mg ity of tablet 09:12: tablet [address] clonazePAM 2022-0 Yes clonazepam U nivers 0.5 mg 4-18 0.5 mg ity of tablet 09:12: tablet [place] 14 TAKE 1 Medical TABLET BY Branch MOUTH EVERY DAY AT BEDTIME NEEDED FOR SEVERE ANXIETY/PA STACEY ATTACK buPROPion 2022-0 Yes 300mg Take 1 Unive rs XL 300 mg 4-18 tablet by ity o f 24 hr 09:12: mouth. [facility] buprenorphi 0 Yes [place] Uni vers ne [...] mg 4-18 DAILY. ity of tablet 09:12: [address] gabapentin 2022-0 Yes gabapentin U nivers 300 mg 4-18 300 mg ity of capsule 09:12: capsule [address] famotidine 2022-0 Yes famotidine U nivers 20 mg 4-18 20 mg ity of tablet 09:12: tablet [address] clonazePAM 2022-0 Yes clonazepam U nivers 0.5 mg 4-18 0.5 mg ity of tablet 09:12: tablet [place] 14 TAKE 1 Medical TABLET BY Branch MOUTH EVERY DAY AT BEDTIME NEEDED FOR SEVERE ANXIETY/PA STACEY ATTACK buPROPion Yes 300mg Take 1 Unive rs XL 300 mg 4-18 tablet by ity o f 24 hr 09:12: mouth. [place] tablet 14 [facility] buprenorphi Yes [place] Uni vers ne HCL [...] mg 4-18 DAILY. ity of tablet 09:12: [address] gabapentin Yes gabapentin U nivers 300 mg 4-18 300 mg ity of capsule 09:12: capsule [address] famotidine Yes famotidine U nivers 20 mg 4-18 20 mg ity of tablet 09:12: tablet [address] clonazePAM Yes clonazepam U nivers 0.5 mg 4-18 0.5 mg ity of tablet 09:12: tablet [place] [address] TAKE 1 Medical TABLET BY Branch MOUTH EVERY DAY AT BEDTIME NEEDED FOR SEVERE ANXIETY/PA STACEY ATTACK buPROPion Yes 300mg Take 1 Unive rs XL 300 mg 4-18 tablet by ity o f 24 hr 09:12: mouth. [place] tablet 14 [facility] buprenorphi Yes [place] Uni vers ne HCL [...] mg 4-18 DAILY. ity of tablet 09:12: [address] gabapentin Yes gabapentin U nivers 300 mg 4-18 300 mg ity of capsule 09:12: capsule [address] famotidine 2022-0 Yes famotidine U nivers 20 mg 4-18 20 mg ity of tablet 09:12: tablet [address] clonazePAM Yes clonazepam U nivers 0.5 mg 4-18 0.5 mg ity of tablet 09:12: tablet [place] [address] TAKE 1 Medical TABLET BY Branch MOUTH EVERY DAY AT BEDTIME NEEDED FOR SEVERE ANXIETY/PA STACEY ATTACK buPROPion Yes 300mg Take 1 Unive rs XL 300 mg 4-18 tablet by ity o f 24 hr 09:12: mouth. [address] buprenorphi Yes [place] Uni vers ne [...] mg 4-18 DAILY. ity of tablet 09:12: [address] gabapentin Yes gabapentin U nivers 300 mg 4-18 300 mg ity of capsule 09:12: capsule [address] famotidine 0 Yes famotidine U nivers 20 mg 4-18 20 mg ity of tablet 09:12: tablet [address] clonazePAM 2022-0 Yes clonazepam U nivers 0.5 mg 4-18 0.5 mg ity of tablet 09:12: tablet [place] 14 TAKE 1 Medical TABLET BY Branch MOUTH EVERY DAY AT BEDTIME NEEDED FOR SEVERE ANXIETY/PA STACEY ATTACK buPROPion 0 Yes 300mg Take 1 Unive rs XL 300 mg 4-18 tablet by ity o f 24 hr 09:12: mouth. [place] tablet 14 [facility] buprenor[place] Yes [place] Uni vers ne HCL [...] mg 4-18 DAILY. ity of tablet 09:12: [address] gabapentin Yes gabapentin U nivers 300 mg 4-18 300 mg ity of capsule 09:12: capsule [address] famotidine 0 Yes famotidine U nivers 20 mg 4-18 20 mg ity of tablet 09:12: tablet [address] clonazePAM 2022-0 Yes clonazepam U nivers 0.5 mg 4-18 0.5 mg ity of tablet 09:12: tablet [place] [address] TAKE 1 Medical TABLET BY Branch MOUTH EVERY DAY AT BEDTIME NEEDED FOR SEVERE ANXIETY/PA STACEY ATTACK buPROPion 2022-0 Yes 300mg Take 1 Unive rs XL 300 mg 4-18 tablet by ity o f 24 hr 09:12: mouth. [place] tablet [address] [place] [address] buprenorphi Yes [place] Uni vers ne HCL [...] mg 4-18 DAILY. ity of tablet 09:12: [address] gabapentin Yes gabapentin U nivers 300 mg 4-18 300 mg ity of capsule 09:12: capsule [address] famotidine Yes famotidine U nivers 20 mg 4-18 20 mg ity of tablet 09:12: tablet [address] clonazePAM Yes clonazepam U nivers 0.5 mg 4-18 0.5 mg ity of tablet 09:12: tablet [place] [address] TAKE 1 Medical TABLET BY Branch MOUTH EVERY DAY AT BEDTIME NEEDED FOR SEVERE ANXIETY/PA STACEY ATTACK buPROPion Yes 300mg Take 1 Unive rs XL 300 mg 4-18 tablet by ity o f 24 hr 09:12: mouth. [place] tablet 14 [facility] buprenor[place] Yes [place] Uni vers ne HCL [...] mg 4-18 DAILY. ity of tablet 09:12: [address] gabapentin 2022-0 Yes gabapentin U nivers 300 mg 4-18 300 mg ity of capsule 09:12: capsule [address] famotidine 2022-0 Yes famotidine U nivers 20 mg 4-18 20 mg ity of tablet 09:12: tablet [address] clonazePAM 2022-0 Yes clonazepam U nivers 0.5 mg 4-18 0.5 mg ity of tablet 09:12: tablet [place] [address] TAKE 1 Medical TABLET BY Branch MOUTH EVERY DAY AT BEDTIME NEEDED FOR SEVERE ANXIETY/PA STACEY ATTACK buPROPion 2022-0 Yes 300mg Take 1 Unive rs XL 300 mg 4-18 tablet by ity o f 24 hr 09:12: mouth. [address] buprenor[place] Yes [place] Uni vers ne [...] mg 4-18 DAILY. ity of tablet 09:12: [address] gabapentin 0 Yes gabapentin U nivers 300 mg 4-18 300 mg ity of capsule 09:12: capsule [address] famotidine 2022-0 Yes famotidine U nivers 20 mg 4-18 20 mg ity of tablet 09:12: tablet [address] clonazePAM 2022-0 Yes clonazepam U nivers 0.5 mg 4-18 0.5 mg ity of tablet 09:12: tablet [place] 14 TAKE 1 Medical TABLET BY Branch MOUTH EVERY DAY AT BEDTIME NEEDED FOR SEVERE ANXIETY/PA STACEY ATTACK buPROPion 0 Yes 300mg Take 1 Unive rs XL 300 mg 4-18 tablet by ity o f 24 hr 09:12: mouth. [place] tablet 14 Medical [place] buprenorphi Yes [place] Uni vers ne HCL [...] mg 4-18 DAILY. ity of tablet 09:12: [address] gabapentin Yes gabapentin U nivers 300 mg 4-18 300 mg ity of capsule 09:12: capsule [address] famotidine 0 Yes famotidine U nivers 20 mg 4-18 20 mg ity of tablet 09:12: tablet [address] clonazePAM Yes clonazepam U nivers 0.5 mg 4-18 0.5 mg ity of tablet 09:12: tablet [place] [address] TAKE 1 Medical TABLET BY Branch MOUTH EVERY DAY AT BEDTIME NEEDED FOR SEVERE ANXIETY/PA STACEY ATTACK buPROPion 2022-0 Yes 300mg Take 1 Unive rs XL 300 mg 4-18 tablet by ity o f 24 hr 09:12: mouth. [place] tablet 14 [facility] buprenor[place] Yes [place] Uni vers ne HCL [...] mg 4-18 DAILY. ity of tablet 09:12: [address] gabapentin Yes gabapentin U nivers 300 mg 4-18 300 mg ity of capsule 09:12: capsule [address] famotidine Yes famotidine U nivers 20 mg 4-18 20 mg ity of tablet 09:12: tablet [address] clonazePAM Yes clonazepam U nivers 0.5 mg 4-18 0.5 mg ity of tablet 09:12: tablet [place] [address] TAKE 1 Medical TABLET BY Branch MOUTH EVERY DAY AT BEDTIME NEEDED FOR SEVERE ANXIETY/PA STACEY ATTACK buPROPion Yes 300mg Take 1 Unive rs XL 300 mg 4-18 tablet by ity o f 24 hr 09:12: mouth. [address] buprenor[place] Yes [place] Uni vers ne [...] mg 4-18 DAILY. ity of tablet 09:12: [address] gabapentin Yes gabapentin U nivers 300 mg 4-18 300 mg ity of capsule 09:12: capsule [address] famotidine 0 Yes famotidine U nivers 20 mg 4-18 20 mg ity of tablet 09:12: tablet [address] clonazePAM 0 Yes clonazepam U nivers 0.5 mg 4-18 0.5 mg ity of tablet 09:12: tablet [place] 14 TAKE 1 Medical TABLET BY Branch [...] mg 4-18 DAILY. ity of tablet 09:12: [address] gabapentin Yes gabapentin U nivers 300 mg 4-18 300 mg ity of capsule 09:12: capsule [address] famotidine 0 Yes famotidine U nivers 20 mg 4-18 20 mg ity of tablet 09:12: tablet [address] clonazePAM 0 Yes clonazepam U nivers 0.5 mg 4-18 0.5 mg ity of tablet 09:12: tablet [place] 14 TAKE 1 Medical TABLET BY Branch [...] mg 4-18 DAILY. ity of tablet 09:12: [address] gabapentin Yes gabapentin U nivers 300 mg 4-18 300 mg ity of capsule 09:12: capsule [address] famotidine Yes famotidine U nivers 20 mg 4-18 20 mg ity of tablet 09:12: tablet [address] clonazePAM Yes clonazepam U nivers 0.5 mg 4-18 0.5 mg ity of tablet 09:12: tablet [place] [address] TAKE 1 Medical TABLET BY Branch MOUTH [...] mg 4-18 DAILY. ity of tablet 09:12: [address] gabapentin Yes gabapentin U nivers 300 mg 4-18 300 mg ity of capsule 09:12: capsule [address] famotidine Yes famotidine U nivers 20 mg 4-18 20 mg ity of tablet 09:12: tablet [address] clonazePAM 2022-0 Yes clonazepam U nivers 0.5 mg 4-18 0.5 mg ity of tablet 09:12: tablet [place] 14 TAKE 1 Medical TABLET BY Branch [...] mg 4-18 DAILY. ity of tablet 09:12: [address] gabapentin Yes gabapentin U nivers 300 mg 4-18 300 mg ity of capsule 09:12: capsule [address] famotidine 0 Yes famotidine U nivers 20 mg 4-18 20 mg ity of tablet 09:12: tablet [address] clonazePAM 2022-0 Yes clonazepam U nivers 0.5 mg 4-18 0.5 mg ity of tablet 09:12: tablet [place] [id number] TAKE 1 Medical TABLET BY Branch MOUTH [...] mg 4-18 DAILY. ity of tablet 09:12: [address] gabapentin Yes gabapentin U nivers 300 mg 4-18 300 mg ity of capsule 09:12: capsule [address] famotidine Yes famotidine U nivers 20 mg 4-18 20 mg ity of tablet 09:12: tablet [address] clonazePAM Yes clonazepam U nivers 0.5 mg 4-18 0.5 mg ity of tablet 09:12: tablet [place] [address] TAKE 1 Medical TABLET BY Branch MOUTH [...] mg 4-18 DAILY. ity of tablet 09:12: [address] gabapentin Yes gabapentin U nivers 300 mg 4-18 300 mg ity of capsule 09:12: capsule [address] famotidine Yes famotidine U nivers 20 mg 4-18 20 mg ity of tablet 09:12: tablet [address] clonazePAM Yes clonazepam U nivers 0.5 mg 4-18 0.5 mg ity of tablet 09:12: tablet [place] 14 TAKE 1 Medical TABLET BY Branch [...] mg 4-18 DAILY. ity of tablet 09:12: [address] gabapentin Yes gabapentin U nivers 300 mg 4-18 300 mg ity of capsule 09:12: capsule [address] famotidine Yes famotidine U nivers 20 mg 4-18 20 mg ity of tablet 09:12: tablet [address] clonazePAM Yes clonazepam U nivers 0.5 mg 4-18 0.5 mg ity of tablet 09:12: tablet [place] [address] TAKE 1 Medical TABLET BY Branch MOUTH [...] ROUTE EVERY WEEK FOR 28 DAYS albuterol 2023-0 Yes albuterol Uni vers 90 4-18 sulfate ity of mcg/actuati 09:12: H[place] 90 [place] inhaler 14 mcg/actuat Med ical ion Branch aerosol inhaler levETIRAcet 0 Yes TWICE Unive rs am 500 mg 4-18 DAILY. ity of tablet 09:12: [address] gabapentin 2022-0 Yes gabapentin U nivers 300 mg 4-18 300 mg ity of capsule 09:12: capsule [address] famotidine 2022-0 Yes famotidine U nivers 20 mg 4-18 20 mg ity of tablet 09:12: tablet [address] clonazePAM 2022-0 Yes clonazepam U nivers 0.5 mg 4-18 0.5 mg ity of tablet 09:12: tablet [place] 14 TAKE 1 Medical TABLET BY Branch [...] mg 4-18 DAILY. ity of tablet 09:12: [address] gabapentin 2022-0 Yes gabapentin U nivers 300 mg 4-18 300 mg ity of capsule 09:12: capsule [address] famotidine 2022-0 Yes famotidine U nivers 20 mg 4-18 20 mg ity of tablet 09:12: tablet [address] clonazePAM 2022-0 Yes clonazepam U nivers 0.5 mg 4-18 0.5 mg ity of tablet 09:12: tablet [place] 14 TAKE 1 Medical TABLET BY Branch [...] mg 4-18 DAILY. ity of tablet 09:12: [address] gabapentin Yes gabapentin U nivers 300 mg 4-18 300 mg ity of capsule 09:12: capsule [address] famotidine Yes famotidine U nivers 20 mg 4-18 20 mg ity of tablet 09:12: tablet [address] clonazePAM Yes clonazepam U nivers 0.5 mg 4-18 0.5 mg ity of tablet 09:12: tablet [place] [id number] TAKE 1 Medical TABLET BY Branch MOUTH [...] mg 4-18 DAILY. ity of tablet 09:12: [address] gabapentin Yes gabapentin U nivers 300 mg 4-18 300 mg ity of capsule 09:12: capsule [address] famotidine 0 Yes famotidine U nivers 20 mg 4-18 20 mg ity of tablet 09:12: tablet [address] clonazePAM 0 Yes clonazepam U nivers 0.5 mg 4-18 0.5 mg ity of tablet 09:12: tablet [place] 14 TAKE 1 Medical TABLET BY Branch [...] mg 4-18 DAILY. ity of tablet 09:12: [address] gabapentin Yes gabapentin U nivers 300 mg 4-18 300 mg ity of capsule 09:12: capsule [address] famotidine 0 Yes famotidine U nivers 20 mg 4-18 20 mg ity of tablet 09:12: tablet [address] clonazePAM 0 Yes clonazepam U nivers 0.5 mg 4-18 0.5 mg ity of tablet 09:12: tablet [place] 14 TAKE 1 Medical TABLET BY Branch [...] 12/19/22 at 0530, Routine iopamidol 2022- No [id number] 99mL 99 mL, U nivers (ISOVUE 12-1915 Intravenou ity o f 370-500 mL) 09:20: [...] 800 mg ity of tablet 10:43: tablet 17 Medical Branch adalimumab 0 Yes 40mg inject 1 Uni vers (HUMIRA) 40 4-11 Syringe ity o f mg/0.8 mL 10:43: under the [place] injection 17 skin. Medical Branch ibuprofen Yes ibuprofen Uni vers 800 mg 4-11 800 mg ity of tablet 10:43: tablet [place] 17 Medical Branch adalimumab 0 Yes 40mg inject [...] 800 mg ity of tablet 10:43: tablet 17 Medical Branch adalimumab 2022-0 Yes 40mg [...] of tablet 10:43: tablet Medical Branch adalimumab Yes 40mg inject 1 [...] 800 mg ity of tablet 10:43: tablet [address] [place] [address] Branch adalimumab 2022-0 Yes 40mg inject 1 Uni vers (HUMIRA) 40 4-11 Syringe ity o f mg/0.8 mL 10:43: under the [place] injection 17 skin. Medical Branch ibuprofen Yes ibuprofen Uni vers 800 mg 4-11 800 mg ity of tablet 10:43: tablet [address] [place] [address] Branch adalimumab 2022-0 Yes 40mg inject 1 Uni vers (HUMIRA) 40 4-11 Syringe ity o f mg/0.8 mL 10:43: under the [place] injection 17 skin. Medical Branch ibuprofen Yes ibuprofen Uni vers 800 mg 4-11 800 mg ity of tablet 10:43: tablet [address] [place] [address] Branch adalimumab 0 Yes 40mg inject 1 Uni vers (HUMIRA) 40 4-11 Syringe ity o f mg/0.8 mL 10:43: under the [place] injection 17 skin. Medical Branch ibuprofen Yes ibuprofen Uni vers 800 mg 4-11 800 mg ity of tablet 10:43: tablet [address] [place] [address] Branch adalimumab 2022-0 Yes 40mg inject 1 Uni vers (HUMIRA) 40 4-11 Syringe ity o f mg/0.8 mL 10:43: under the [place] injection 17 skin. Medical Branch ibuprofen Yes ibuprofen Uni vers 800 mg 4-11 800 mg ity of tablet 10:43: tablet [address] [place] [address] Branch adalimumab 2022-0 Yes 40mg inject 1 Uni vers (HUMIRA) 40 4-11 Syringe ity o f mg/0.8 mL 10:43: under the [place] injection 17 skin. Medical Branch ibuprofen Yes ibuprofen Uni vers 800 mg 4-11 800 mg ity of tablet 10:43: tablet [address] Branch pregabalin 0 Yes 150mg Take 1 Univ ers 150 mg 3-30 capsule by ity of capsule 00:00: mouth in 00 the Medical morning Branch and 1 capsule in the evening. meloxicam Yes [facility] 15 mg 3-30 ity of [...] by ity of capsule 00:00: mouth in [place] the Medical morning Branch and 1 capsule in the evening. meloxicam 2023-0 Yes [facility] 15 mg 3-30 ity of tablet 00:00: [place] 00 Medical Branch HYDROcodone 2023-0 Yes 1{tbl} Take 1 [facility] -acetaminop 3-30 tablet by ity of hen 5-325 00:00: mouth 4 [place] mg tablet 00 (four) Medical times [place] daily. pregabalin 2023-0 Yes 150mg Take 1 [facility] 150 mg 3-30 capsule by ity of capsule 00:00: mouth in [place] the Medical morning Branch and 1 capsule in the evening. meloxicam 2023-0 Yes [facility] 15 mg 3-30 ity of tablet 00:00: [place] 00 Medical Branch HYDROcodone 2023-0 Yes 1{tbl} Take 1 [facility] -acetaminop 3-30 tablet by ity of hen 5-325 00:00: mouth 4 [place] mg tablet 00 (four) Medical times Branch daily. pregabalin 2023-0 Yes 150mg Take 1 [facility] 150 mg 3-30 capsule by ity of capsule 00:00: mouth in [place] the Medical morning Branch and 1 capsule in the evening. meloxicam 2023-0 Yes [facility] 15 mg 3-30 ity of tablet 00:00: [place] 00 Medical Branch HYDROcodone 2023-0 Yes 1{tbl} Take 1 Un tra[facility] -acetaminop 3-30 tablet by ity of hen 5-325 00:00: mouth 4 [place] mg tablet 00 (four) Medical times Branch daily. pregabalin 2023-0 Yes 150mg Take 1 [facility] 150 mg 3-30 capsule by ity of capsule 00:00: mouth in [place] the Medical morning Branch and 1 capsule in the evening. meloxicam 2023-0 Yes [facility] 15 mg 3-30 ity of tablet 00:00: [place] [facility] Branch HYDROcodone 2023-0 Yes 1{tbl} Take 1 Un tra[facility] -acetaminop 3-30 tablet by ity of hen 5-325 00:00: mouth 4 [place] mg tablet ([facility]) Medical times [place] daily. pregabalin 2023-0 Yes 150mg Take 1 [facility] 150 mg 3-30 capsule by ity of capsule 00:00: mouth in [place] the [facility] morning Branch and 1 capsule in the evening. meloxicam 2023-0 Yes [facility] 15 mg 3-30 ity of tablet 00:00: [place] [facility] Branch HYDROcodone 2023-0 Yes 1{tbl} Take 1 Un tra[facility] -acetaminop 3-30 tablet by ity of hen 5-325 00:00: mouth 4 [place] mg tablet ([facility]) [facility] times [place] daily. pregabalin 2023-0 Yes 150mg Take 1 [facility] 150 mg 3-30 capsule by ity of capsule 00:00: mouth in [place] the [facility] morning Branch and 1 capsule in the evening. meloxicam 2023-0 Yes [facility] 15 mg 3-30 ity of tablet 00:00: [place] [facility] Branch HYDROcodone 2023-0 Yes 1{tbl} Take 1 Un [facility] -acetaminop 3-30 tablet by ity of hen 5-325 00:00: mouth 4 [place] mg tablet ([facility]) [facility] times [place] daily. pregabalin 2023-0 Yes 150mg Take 1 [facility] 150 mg 3-30 capsule by ity of capsule 00:00: mouth in [place] the [facility] morning Branch and 1 capsule in the evening. meloxicam 2023-0 Yes [facility] 15 mg 3-30 ity of tablet 00:00: [place] [facility] Branch HYDROcodone 2023-0 Yes 1{tbl} Take 1 [facility] -acetaminop 3-30 tablet by ity of hen 5-325 00:00: mouth 4 [place] mg tablet 00 ([facility]) Medical times [place] daily. pregabalin 2023-0 Yes 150mg Take 1 [facility] 150 mg 3-30 capsule by ity of capsule 00:00: mouth in [place] the Medical morning Branch and 1 capsule in the evening. meloxicam 2023-0 Yes [facility] 15 mg 3-30 ity of tablet 00:00: [place] [facility] Branch HYDROcodone 2023-0 Yes 1{tbl} Take 1 Un tra[facility] -acetaminop 3-30 tablet by ity of hen 5-325 00:00: mouth 4 [place] mg tablet ([facility]) Medical times [place] daily. pregabalin 2023-0 Yes 150mg Take 1 [facility] 150 mg 3-30 capsule by ity of capsule 00:00: mouth in [place] the [facility] morning Branch and 1 capsule in the evening. meloxicam 2023-0 Yes [facility] 15 mg 3-30 ity of tablet 00:00: [address] Branch HYDROcodone 2023-0 Yes 1{tbl} Take 1 Un tra[facility] -acetaminop 3-30 tablet by ity of hen 5-325 00:00: mouth 4 [place] mg tablet ([facility]) [facility] times [place] daily. pregabalin 2023-0 Yes 150mg Take 1 [facility] 150 mg 3-30 capsule by ity of capsule 00:00: mouth in [place] [address] the [facility] morning Branch and 1 capsule in the evening. meloxicam 2023-0 Yes [facility] 15 mg 3-30 ity of tablet 00:00: [address] Branch HYDROcodone 2023-0 Yes 1{tbl} Take 1 Un tra[facility] -acetaminop 3-30 tablet by ity of hen 5-325 00:00: mouth 4 [place] mg tablet ([facility]) [facility] times [place] daily. pregabalin 2023-0 Yes 150mg Take 1 [facility] 150 mg 3-30 capsule by ity of capsule 00:00: mouth in [place] the Medical morning Branch and 1 capsule in the evening. meloxicam 2023-0 Yes [facility] 15 mg 3-30 ity of tablet 00:00: [place] [facility] Branch HYDROcodone 2023-0 Yes 1{tbl} Take 1 Un tra[facility] -acetaminop 3-30 tablet by ity of hen 5-325 00:00: mouth 4 [place] mg tablet 00 ([facility]) Medical times [place] daily. pregabalin 2023-0 Yes 150mg Take 1 [facility] 150 mg 3-30 capsule by ity of capsule 00:00: mouth in [place] [address] the Medical morning Branch and 1 capsule in the evening. meloxicam 2023-0 Yes [facility] 15 mg 3-30 ity of tablet 00:00: [place] [facility] Branch HYDROcodone 2023-0 Yes 1{tbl} Take 1 Un tra[facility] -acetaminop 3-30 tablet by ity of hen 5-325 00:00: mouth 4 [place] mg tablet 00 ([facility]) Medical times [place] daily. pregabalin 2023-0 Yes 150mg Take 1 [facility] 150 mg 3-30 capsule by ity of capsule 00:00: mouth in [place] [address] the Medical morning Branch and 1 capsule in the evening. meloxicam 2023-0 Yes [facility] 15 mg 3-30 ity of tablet 00:00: [address] Branch HYDROcodone 2023-0 Yes 1{tbl} Take 1 Un tra[facility] -acetaminop 3-30 tablet by ity of hen 5-325 00:00: mouth 4 [place] mg tablet 00 ([facility]) [facility] times [place] daily. pregabalin 2023-0 Yes 150mg Take 1 [facility] 150 mg 3-30 capsule by ity of capsule 00:00: mouth in [place] [address] the [facility] morning Branch and 1 capsule in the evening. meloxicam 2023-0 Yes [facility] 15 mg 3-30 ity of tablet 00:00: [place] [facility] Branch HYDROcodone 2023-0 Yes 1{tbl} Take 1 Un [facility] -acetaminop 3-30 tablet by ity of hen 5-325 00:00: mouth 4 [place] mg tablet ([facility]) [facility] times [place] daily. pregabalin 2023-0 Yes 150mg Take 1 [facility] 150 mg 3-30 capsule by ity of capsule 00:00: mouth in [place] [address] the [facility] morning Branch and 1 capsule in the evening. meloxicam 2023-0 Yes [facility] 15 mg 3-30 ity of tablet 00:00: [address] Branch HYDROcodone 2023-0 Yes 1{tbl} Take 1 Un tra[facility] -acetaminop 3-30 tablet by ity of hen 5-325 00:00: mouth 4 [place] mg tablet 00 ([facility]) [facility] times [place] daily. pregabalin 2023-0 Yes 150mg Take 1 [facility] 150 mg 3-30 capsule by ity of capsule 00:00: mouth in [place] [address] the [facility] morning Branch and 1 capsule in the evening. meloxicam 2023-0 Yes [facility] 15 mg 3-30 ity of tablet 00:00: [place] 00 [facility] Branch HYDROcodone 2023-0 Yes 1{tbl} Take 1 Un [facility] -acetaminop 3-30 tablet by ity of hen 5-325 00:00: mouth 4 [place] mg tablet 00 (four) Medical times [place] daily. pregabalin 2023-0 Yes 150mg Take 1 [facility] 150 mg 3-30 capsule by ity of capsule 00:00: mouth in [place] 00 the Medical morning Branch and 1 capsule in the evening. meloxicam 2023-0 Yes [facility] 15 mg 3-30 ity of tablet 00:00: [place] 00 [facility] Branch HYDROcodone 2023-0 Yes 1{tbl} Take 1 Un tra[facility] -acetaminop 3-30 tablet by ity of hen 5-325 00:00: mouth 4 [place] mg tablet 00 ([facility]) Medical times [place] daily. pregabalin 2023-0 Yes 150mg Take 1 [facility] 150 mg 3-30 capsule by ity of capsule 00:00: mouth in [place] the [facility] morning Branch and 1 capsule in the evening. meloxicam 2023-0 Yes [facility] 15 mg 3-30 ity of tablet 00:00: [place] 00 [facility] Branch HYDROcodone 2023-0 Yes 1{tbl} Take 1 Un tra[facility] -acetaminop 3-30 tablet by ity of hen 5-325 00:00: mouth 4 [place] mg tablet 00 ([facility]) [facility] times [place] daily. pregabalin 2023-0 Yes 150mg Take 1 [facility] 150 mg 3-30 capsule by ity of capsule 00:00: mouth in [place] the Medical morning Branch and 1 capsule in the evening. meloxicam 2023-0 Yes [facility] 15 mg 3-30 ity of tablet 00:00: [place] 00 [facility] Branch HYDROcodone 2023-0 Yes 1{tbl} Take 1 Un tra[facility] -acetaminop 3-30 tablet by ity of hen 5-325 00:00: mouth 4 [place] mg tablet 00 (four) Medical times [place] daily. pregabalin 2023-0 Yes 150mg Take 1 [facility] 150 mg 3-30 capsule by ity of capsule 00:00: mouth in [place] [address] the Medical morning Branch and 1 capsule in the evening. meloxicam 2023-0 Yes [facility] 15 mg 3-30 ity of tablet 00:00: [place] [facility] Branch HYDROcodone 2023-0 Yes 1{tbl} Take 1 Un tra[facility] -acetaminop 3-30 tablet by ity of hen 5-325 00:00: mouth 4 [place] mg tablet ([facility]) [facility] times [place] daily. pregabalin 2023-0 Yes 150mg Take 1 [facility] 150 mg 3-30 capsule by ity of capsule 00:00: mouth in [place] the Medical morning Branch and 1 capsule in the evening. meloxicam 2023-0 Yes [facility] 15 mg 3-30 ity of tablet 00:00: [place] [facility] Branch HYDROcodone 2023-0 Yes 1{tbl} Take 1 Un tra[facility] -acetaminop 3-30 tablet by ity of hen 5-325 00:00: mouth 4 [place] mg tablet ([facility]) [facility] daily. pregabalin 2023-0 Yes 150mg Take 1 [facility] ers 150 mg 3-30 capsule by ity of capsule 00:00: mouth in [place] the [facility] morning Branch and 1 capsule in the evening. meloxicam 2023-0 Yes [facility] 15 mg 3-30 ity of tablet 00:00: [place] [facility] Branch HYDROcodone 2023-0 Yes 1{tbl} Take 1 Un tra[facility] -acetaminop 3-30 tablet by ity of hen 5-325 00:00: mouth 4 [place] mg tablet ([facility]) [facility] daily. pregabalin 2023-0 Yes 150mg Take 1 [facility] ers 150 mg 3-30 capsule by ity of capsule 00:00: mouth in [place] the [facility] morning Branch and 1 capsule in the evening. meloxicam 2023-0 Yes [facility] 15 mg 3-30 ity of tablet 00:00: [place] [facility] Branch HYDROcodone 2023-0 Yes 1{tbl} Take 1 Un tra[facility] -acetaminop 3-30 tablet by ity of hen 5-325 00:00: mouth 4 [place] mg tablet ([facility]) [facility] times [place] daily. pregabalin 2023-0 Yes 150mg Take 1 [facility] 150 mg 3-30 capsule by ity of capsule 00:00: mouth in [place] [address] the Medical morning Branch and 1 capsule in the evening. meloxicam 2023-0 Yes [facility] 15 mg 3-30 ity of tablet 00:00: [address] Branch HYDROcodone 2023-0 Yes 1{tbl} Take 1 Un travis -acetaminop 3-30 tablet by ity of hen 5-325 00:00: mouth 4 [place] mg tablet 00 ([facility]) Medical times [place] daily. pregabalin 2023-0 Yes 150mg Take 1 [facility] 150 mg 3-30 capsule by ity of capsule 00:00: mouth in [place] the Medical morning Branch and 1 capsule in the evening. meloxicam 2023-0 Yes [facility] 15 mg 3-30 ity of tablet 00:00: [place] [facility] Branch HYDROcodone 2023-0 Yes 1{tbl} Take 1 Un tra[facility] -acetaminop 3-30 tablet by ity of hen 5-325 00:00: mouth 4 [place] mg tablet 00 ([facility]) Medical times [place] daily. pregabalin 2023-0 Yes 150mg Take 1 [facility] 150 mg 3-30 capsule by ity of capsule 00:00: mouth in [place] the Medical morning Branch and 1 capsule in the evening. meloxicam 2023-0 Yes [facility] 15 mg 3-30 ity of tablet 00:00: [place] [facility] Branch HYDROcodone 2023-0 Yes 1{tbl} Take 1 Un tra[facility] -acetaminop 3-30 tablet by ity of hen 5-325 00:00: mouth 4 [place] mg tablet ([facility]) Medical times [place] daily. pregabalin 2023-0 Yes 150mg Take 1 [facility] 150 mg 3-30 capsule by ity of capsule 00:00: mouth in [place] the Medical morning Branch and 1 capsule in the evening. meloxicam 2023-0 Yes [facility] 15 mg 3-30 ity of tablet 00:00: [place] [facility] Branch HYDROcodone 2023-0 Yes 1{tbl} Take 1 Un [facility] -acetaminop 3-30 tablet by ity of hen 5-325 00:00: mouth 4 [place] mg tablet 00 ([facility]) Medical times [place] daily. pregabalin 2023-0 Yes 150mg Take 1 [facility] 150 mg 3-30 capsule by ity of capsule 00:00: mouth in [place] the Medical morning Branch and 1 capsule in the evening. meloxicam 2023-0 Yes [facility] 15 mg 3-30 ity of tablet 00:00: [place] [facility] Branch HYDROcodone 2023-0 Yes 1{tbl} Take 1 Un tra[facility] -acetaminop 3-30 tablet by ity of hen 5-325 00:00: mouth 4 [place] mg tablet 00 ([facility]) Medical times [place] daily. pregabalin 2023-0 Yes 150mg Take 1 [facility] 150 mg 3-30 capsule by ity of capsule 00:00: mouth in [place] the Medical morning Branch and 1 capsule in the evening. meloxicam 2023-0 Yes [facility] 15 mg 3-30 ity of tablet 00:00: [place] 00 [facility] Branch HYDROcodone 2023-0 Yes 1{tbl} Take 1 Un tra[facility] -acetaminop 3-30 tablet by ity of hen 5-325 00:00: mouth 4 [place] mg tablet 00 (four) Medical times [place] daily. pregabalin 2023-0 Yes 150mg Take 1 [facility] 150 mg 3-30 capsule by ity of capsule 00:00: mouth in [place] the Medical morning Branch and 1 capsule in the evening. meloxicam 2023-0 Yes [facility] 15 mg 3-30 ity of tablet 00:00: [place] [facility] Branch HYDROcodone 2023-0 Yes 1{tbl} Take 1 Un tra[facility] -acetaminop 3-30 tablet by ity of hen 5-325 00:00: mouth 4 [place] mg tablet 00 ([facility]) Medical times [place] daily. pregabalin 2023-0 Yes 150mg Take 1 [facility] 150 mg 3-30 capsule by ity of capsule 00:00: mouth in [place] the Medical morning Branch and 1 capsule in the evening. meloxicam 2023-0 Yes [facility] 15 mg 3-30 ity of tablet 00:00: [place] [facility] Branch HYDROcodone 2023-0 Yes 1{tbl} Take 1 Un tra[facility] -acetaminop 3-30 tablet by ity of hen 5-325 00:00: mouth 4 [place] mg tablet 00 (four) Medical times [place] daily. pregabalin 2023-0 Yes 150mg Take 1 [facility] 150 mg 3-30 capsule by ity of capsule 00:00: mouth in [place] the Medical morning Branch and 1 capsule in the evening. meloxicam 2023-0 Yes [facility] 15 mg 3-30 ity of tablet 00:00: [place] 00 [facility] Branch HYDROcodone 2023-0 Yes 1{tbl} Take 1 Un tra[facility] -acetaminop 3-30 tablet by ity of hen 5-325 00:00: mouth 4 [place] mg tablet 00 (four) Medical times [place] daily. pregabalin 2023-0 Yes 150mg Take 1 [facility] 150 mg 3-30 capsule by ity of capsule 00:00: mouth in [place] the Medical morning Branch and 1 capsule in the evening. meloxicam 2023-0 Yes [facility] 15 mg 3-30 ity of tablet 00:00: [place] [address] Medical Branch HYDROcodone 2023-0 Yes 1{tbl} Take 1 Un travis -acetaminop 3-30 tablet by ity of hen 5-325 00:00: mouth 4 [place] mg tablet 00 (four) Medical times [place] daily. pregabalin 2023-0 Yes 150mg Take 1 [facility] 150 mg 3-30 capsule by ity of capsule 00:00: mouth in [place] [address] the [facility] morning Branch and 1 capsule in the evening. meloxicam 2023-0 Yes [facility] 15 mg 3-30 ity of tablet 00:00: [address] Branch HYDROcodone 2023-0 Yes 1{tbl} Take 1 Un tra[facility] -acetaminop 3-30 tablet by ity of hen 5-325 00:00: mouth 4 [place] mg tablet 00 (four) Medical times [place] daily. pregabalin 2023-0 Yes 150mg Take 1 [facility] 150 mg 3-30 capsule by ity of capsule 00:00: mouth in [place] the [facility] morning Branch and 1 capsule in the evening. meloxicam 2023-0 Yes [facility] 15 mg 3-30 ity of tablet 00:00: [address] Branch pregabalin 2023-0 Yes 150mg Take 1 [facility] ers 150 mg 3-30 capsule by ity of capsule 00:00: mouth in [place] [address] the [facility] morning Branch and 1 capsule in the evening. meloxicam 2023-0 Yes [facility] 15 mg 3-30 ity of tablet 00:00: [place] Medical Branch pregabalin 2023-0 Yes 150mg Take 1 [facility] ers 150 mg 3-30 capsule by ity of capsule 00:00: mouth in [place] [address] the [facility] morning Branch and 1 capsule in the evening. meloxicam 2023-0 Yes [facility] 15 mg 3-30 ity of tablet 00:00: [place] [address] Medical Branch pregabalin 2023-0 Yes 150mg Take 1 [facility] ers 150 mg 3-30 capsule by ity of capsule 00:00: mouth in [place] [address] the Medical morning Branch and 1 capsule in the evening. meloxicam 2023-0 Yes [facility] 15 mg 3-30 ity of tablet 00:00: [place] Medical Branch pregabalin 2023-0 Yes 150mg Take 1 [facility] ers 150 mg 3-30 capsule by ity of capsule 00:00: mouth in [place] [address] the [facility] morning Branch and 1 capsule in the evening. meloxicam 2023-0 Yes [facility] 15 mg 3-30 ity of tablet 00:00: [place] [address] Medical Branch pregabalin 2023-0 Yes 150mg Take 1 [facility] ers 150 mg 3-30 capsule by ity of capsule 00:00: mouth in [place] [address] the Medical morning Branch and 1 capsule in the evening. meloxicam 2023-0 Yes [facility] 15 mg 3-30 ity of tablet 00:00: [place] [address] Medical Branch pregabalin 2023-0 Yes 150mg Take 1 [facility] ers 150 mg 3-30 capsule by ity of capsule 00:00: mouth in [address] morning [place] and 1 capsule in the evening. meloxicam 2023-0 Yes [facility] 15 mg 3-30 ity of tablet 00:00: [place] [facility] Branch pregabalin 2023-0 Yes 150mg Take 1 [facility] ers 150 mg 3-30 capsule by ity of capsule 00:00: mouth in [address] morning [place] and 1 capsule in the evening. meloxicam 2023-0 Yes [facility] 15 mg 3-30 ity of tablet 00:00: [place] [address] Medical Branch pregabalin 2023-0 Yes 150mg Take 1 [facility] ers 150 mg 3-30 capsule by ity of capsule 00:00: mouth in [place] [address] the [facility] morning [place] and 1 capsule in the evening. meloxicam 2023-0 Yes [facility] 15 mg 3-30 ity of tablet 00:00: [place] [address] Medical Branch pregabalin 2023-0 Yes 150mg Take 1 [facility] ers 150 mg 3-30 capsule by ity of capsule 00:00: mouth in [place] [address] the [facility] morning [place] and 1 capsule in the evening. meloxicam 2023-0 Yes [facility] 15 mg 3-30 ity of tablet 00:00: [place] [address] Medical Branch pregabalin 2023-0 Yes 150mg Take 1 [facility] 150 mg 3-30 capsule by ity of capsule 00:00: mouth in [address] morning [place] and 1 capsule in the evening. meloxicam 2023-0 Yes [facility] 15 mg 3-30 ity of tablet 00:00: [place] 00 [facility] Branch HYDROcodone 2023-0 Yes 1{tbl} Take 1 Un tra[facility] -acetaminop 3-30 tablet by ity of hen 5-325 00:00: mouth 4 [place] mg tablet 00 ([facility]) Medical times [place] daily. pregabalin 2023-0 Yes 150mg Take 1 [facility] 150 mg 3-30 capsule by ity of capsule 00:00: mouth in [place] 00 the Medical morning Branch and 1 capsule in the evening. meloxicam 2023-0 Yes [facility] 15 mg 3-30 ity of tablet 00:00: [place] 00 [facility] Branch HYDROcodone 2023-0 Yes 1{tbl} Take 1 Un tra[facility] -acetaminop 3-30 tablet by ity of hen 5-325 00:00: mouth 4 [place] mg tablet 00 ([facility]) [facility] times [place] daily. pregabalin 2023-0 Yes 150mg Take 1 [facility] 150 mg 3-30 capsule by ity of capsule 00:00: mouth in [place] the [facility] morning Branch and 1 capsule in the evening. meloxicam 2023-0 Yes [facility] 15 mg 3-30 ity of tablet 00:00: [place] 00 [facility] Branch HYDROcodone 2023-0 Yes 1{tbl} Take 1 Un tra[facility] -acetaminop 3-30 tablet by ity of hen 5-325 00:00: mouth 4 [place] mg tablet 00 ([facility]) [facility] times [place] daily. pregabalin 2023-0 Yes 150mg Take 1 [facility] 150 mg 3-30 capsule by ity of capsule 00:00: mouth in [place] the [facility] morning Branch and 1 capsule in the evening. meloxicam 2023-0 Yes [facility] 15 mg 3-30 ity of tablet 00:00: [place] 00 [facility] Branch HYDROcodone 2023-0 Yes 1{tbl} Take 1 Un tra[facility] -acetaminop 3-30 tablet by ity of hen 5-325 00:00: mouth 4 [place] mg tablet 00 ([facility]) Medical times [place] daily. pregabalin 2023-0 Yes 150mg Take 1 [facility] 150 mg 3-30 capsule by ity of capsule 00:00: mouth in [place] [address] the Medical morning Branch and 1 capsule in the evening. meloxicam 2023-0 Yes [facility] 15 mg 3-30 ity of tablet 00:00: [place] [address] Medical Branch HYDROcodone 3-0 Yes 1{tbl} Take 1 Un tra[facility] -acetaminop 3-30 tablet by ity of hen 5-325 00:00: mouth 4 [place] mg tablet 00 (four) Medical times Branch daily. pregabalin 3-0 Yes 150mg Take 1 [facility] 150 mg 3-30 capsule by ity of capsule 00:00: mouth in [place] [address] the Medical morning Branch and 1 capsule in the evening. meloxicam 2022-0 Yes [facility] 15 mg 3-30 ity of tablet 00:00: [place] [address] Medical Branch HYDROcodone 2022-0 Yes 1{tbl} Take 1 Un travis -acetaminop 3-30 tablet by ity of hen 5-325 00:00: mouth 4 [place] mg tablet 00 (four) Medical times Branch daily. HYDROcodone 2022-0 2023- No 1{tbl} Take 1 U nivers -acetaminop 3-30 10-05 tablet by it y of hen 5-325 00:00: 00:[place] :[place] ([facility]) Medical times Branch daily. HYDROcodone 2022-0 3- No 1{tbl} Take 1 U nivers -acetaminop 3-30 10-05 tablet by it y of hen 5-325 00:00: 00:[place] tablet 00 :[place] ([facility]) Medical times Branch daily. cyclobenzap 2022-0 Yes TAKE 1 Univ ers rine 10 mg 3-15 TABLET BY ity of tablet 00:00: [facility] 00 THREE Medical TIMES A Branch DAY NEEDED FOR 30 DAYS amitriptyli 2022-0 Yes TAKE 1 Univ ers ne 50 mg 3-15 TABLET BY ity of tablet 00:00: MOUTH [place] 00 EVERY DAY Medical AT BEDTIME Branch FOR 30 DAYS cyclobenzap 2022-0 Yes TAKE 1 Univ ers rine 10 mg 3-15 TABLET BY ity of tablet 00:00: MOUTH [place] 00 THREE Medical TIMES A Branch DAY NEEDED FOR 30 DAYS amitriptyli 3-0 Yes TAKE 1 [facility] ers ne 50 mg 3-15 TABLET BY ity of tablet 00:00: MOUTH [place] 00 EVERY DAY Medical AT BEDTIME Branch [...] TABLET BY ity of tablet 00:00: [facility] THREE Medical TIMES A Branch DAY NEEDED FOR 30 DAYS amitriptyli 2023-0 Yes TAKE 1 Univ ers ne 50 mg 3-15 TABLET BY ity of tablet 00:00: [facility] EVERY DAY Medical AT BEDTIME Branch FOR 30 DAYS cyclobenzap 2023-0 Yes TAKE 1 [facility] ers rine 10 mg 3-15 TABLET BY ity of tablet 00:00: MOUTH THREE Medical TIMES A Branch DAY NEEDED FOR 30 DAYS amitriptyli 2023-0 Yes TAKE 1 [facility] ers ne 50 mg 3-15 TABLET BY ity of tablet 00:00: [facility] 2023-0 Yes TAKE 1 [facility] ers rine 10 mg 3-15 TABLET BY ity of tablet 00:00: [facility] THREE Medical TIMES A Branch DAY NEEDED [...] TABLET BY ity of tablet 00:00: [facility] EVERY DAY Medical AT BEDTIME Branch FOR [...] TABLET BY ity of tablet 00:00: [facility] EVERY DAY Medical AT BEDTIME [place] FOR 30 DAYS cyclobenzap 3-0 Yes TAKE 1 [facility] ers rine 10 mg 3-15 TABLET BY ity of tablet 00:00: MOUTH THREE Medical TIMES A Branch DAY NEEDED FOR 30 DAYS amitriptyli 2023-0 Yes TAKE 1 [facility] ers ne 50 mg 3-15 TABLET BY ity of tablet 00:00: [facility] cyclobenzap 3-0 Yes TAKE 1 [facility] ers rine 10 mg 3-15 TABLET BY ity of tablet 00:00: MOUTH THREE Medical TIMES A Branch DAY NEEDED FOR 30 DAYS amitriptyli 2023-0 Yes TAKE 1 [facility] ers ne 50 mg 3-15 TABLET BY ity of tablet 00:00: [facility] EVERY DAY Medical AT BEDTIME [place] FOR 30 DAYS cyclobenzap 2023-0 Yes TAKE [...] [facility]-0 Yes TAKE 1 [facility] 10 mg 3-15 TABLET BY [facility] tablet 00:00: MOUTH THREE Medical TIMES A Branch DAY NEEDED FOR 30 DAYS amitriptyli 2023-0 Yes TAKE 1 [facility] 50 mg 3-15 TABLET BY [facility] tablet 00:00: [facility] cyclobenzap 2022-0 Yes TAKE 1 [facility] 10 mg 3-15 TABLET BY [facility] of tablet 00:00: MOUTH THREE Medical TIMES A Branch DAY NEEDED FOR 30 DAYS amitriptyli 3-0 Yes TAKE 1 [facility] 50 mg 3-15 TABLET BY [facility] tablet 00:00: [facility] 2022-0 Yes TAKE 1 [facility] 10 mg 3-15 TABLET BY [facility] tablet 00:00: [facility] THREE Medical TIMES A Branch DAY NEEDED FOR 30 DAYS amitriptyli 3-0 Yes TAKE 1 [facility] 50 mg 3-15 TABLET BY [facility] of tablet 00:00: [facility] EVERY DAY Medical AT [facility] FOR 30 DAYS cyclobenzap 2022-0 Yes TAKE 1 [facility] 10 mg 3-15 TABLET BY [facility] of tablet 00:00: [facility] THREE Medical TIMES A Branch DAY NEEDED FOR 30 DAYS amitriptyli 2023-0 Yes TAKE 1 [facility] 50 mg 3-15 TABLET BY [facility] tablet 00:00: [facility]-0 Yes TAKE 1 [facility] 10 mg 3-15 TABLET BY [facility] tablet 00:00: [facility] THREE Medical TIMES A Branch DAY NEEDED FOR 30 DAYS amitriptyli 2023-0 Yes TAKE 1 [facility] 50 mg 3-15 TABLET BY [facility] tablet 00:00: [facility] EVERY DAY Medical AT BEDTIME Branch FOR 30 DAYS cyclobenzap 3-0 Yes TAKE 1 [facility] 10 mg 3-15 TABLET BY [facility] tablet 00:00: [facility] THREE Medical TIMES A Branch DAY NEEDED [...] 00:00: [facility]TH [facility] cyclobenzap 3-0 Yes TAKE 1 [facility] 10 mg 3-15 TABLET BY [facility] of tablet 00:00: MOUTH THREE Medical TIMES A Branch DAY NEEDED FOR 30 DAYS amitriptyli 3-0 Yes TAKE 1 [facility] 50 mg 3-15 TABLET BY [facility] tablet 00:00[facility]-0 Yes TAKE 1 [facility] 10 mg 3-15 TABLET BY [facility] of tablet 00:00: MOUTH THREE Medical TIMES A Branch DAY NEEDED FOR 30 DAYS amitriptyli 2023-0 Yes TAKE 1 [facility] 50 mg 3-15 TABLET BY [facility] tablet 00:00: [facility] 3-0 Yes TAKE 1 [facility] 10 mg 3-15 TABLET BY [facility] of tablet 00:00: MOUTH THREE Medical TIMES A Branch DAY NEEDED FOR 30 DAYS amitriptyli 2023-0 Yes TAKE 1 [facility] 50 mg 3-15 TABLET BY ity of tablet 00:00: MOUTH EVERY DAY Medical AT BEDTIME [place] FOR 30 DAYS cyclobenzap 3-0 Yes TAKE [...] TABLET BY [facility] tablet 00:00: [facility] EVERY DAY Medical AT BEDTIME Branch FOR 30 DAYS cyclobenzap 3-0 Yes TAKE 1 [facility] 10 mg 3-15 TABLET BY [facility] tablet 00:00: [facility] THREE Medical TIMES A Branch DAY NEEDED FOR 30 DAYS amitriptyli 2023-0 Yes TAKE 1 [facility] 50 mg 3-15 TABLET BY [facility] tablet 00:00: [facility] FOR [facility] DAYS cyclobenzap 3-0 Yes TAKE 1 [facility] 10 mg 3-15 TABLET BY [facility] of tablet 00:00: [facility] THREE Medical TIMES A Branch DAY NEEDED FOR 30 DAYS amitriptyli 3-0 Yes TAKE 1 [facility] 50 mg 3-15 TABLET BY [facility] of tablet 00:00: [facility] EVERY DAY Medical AT BEDTIME [place] FOR 30 DAYS cyclobenzap 3-0 Yes TAKE 1 [facility] 10 mg 3-15 TABLET BY [facility] tablet 00:00: [facility] THREE Medical TIMES A Branch DAY NEEDED FOR 30 DAYS amitriptyli 2023-0 Yes TAKE 1 [facility] 50 mg 3-15 TABLET BY [facility] tablet 00:00: [facility] 3-0 Yes TAKE 1 [facility] 10 mg 3-15 TABLET BY [facility] of tablet 00:00: [facility] THREE Medical TIMES A Branch DAY NEEDED FOR 30 DAYS amitriptyli 2023-0 Yes TAKE 1 [facility] 50 mg 3-15 TABLET BY [facility] tablet 00:00: [facility] EVERY DAY Medical AT BEDTIME [place] FOR 30 DAYS cyclobenzap 2023-0 Yes TAKE 1 [facility] 10 mg 3-15 TABLET BY [facility] of tablet 00:00: [facility] THREE Medical TIMES A Branch DAY NEEDED FOR 30 DAYS amitriptyli 2023-0 Yes TAKE 1 [facility] 50 mg 3-15 TABLET BY [facility] of tablet 00:00: [facility] EVERY DAY Medical AT BEDTIME Branch FOR 30 DAYS cyclobenzap 2023-0 Yes TAKE 1 [facility] 10 mg 3-15 TABLET BY ity of tablet 00:00: THREE Medical TIMES A Branch DAY NEEDED FOR 30 DAYS amitriptyli 2023-0 Yes TAKE 1 [facility] 50 mg 3-15 TABLET BY [facility] of tablet 00:00: [facility] EVERY DAY Medical AT BEDTIME Branch FOR 30 DAYS cyclobenzap 2023-0 Yes TAKE 1 [facility] 10 mg 3-15 TABLET BY [facility] of tablet 00:00: [facility] THREE Medical TIMES A Branch DAY NEEDED FOR 30 DAYS amitriptyli 2023-0 Yes TAKE 1 [facility] 50 mg 3-15 TABLET BY [facility] of tablet 00:00: [facility] EVERY DAY Medical AT BEDTIME [facility] FOR 30 DAYS cyclobenzap 3-0 Yes TAKE 1 [facility] 10 mg 3-15 TABLET BY [facility] of tablet 00:00: [facility] THREE Medical TIMES A Branch DAY NEEDED FOR 30 DAYS amitriptyli 2023-0 Yes TAKE 1 [facility] 50 mg 3-15 TABLET BY [facility] tablet 00:00: [facility] EVERY DAY Medical AT BEDTIME [facility] FOR 30 DAYS cyclobenzap 3-0 Yes TAKE 1 [facility] 10 mg 3-15 TABLET BY [facility] of tablet 00:00: [facility] THREE Medical TIMES A Branch DAY NEEDED FOR 30 DAYS amitriptyli 2023-0 Yes TAKE 1 [facility] 50 mg 3-15 TABLET BY [facility] of tablet 00:00: [facility] EVERY DAY Medical AT BEDTIME [facility] FOR 30 DAYS cyclobenzap 2023-0 Yes TAKE 1 [facility] 10 mg 3-15 TABLET BY [facility] of tablet 00:00: [facility] THREE Medical TIMES A Branch DAY NEEDED FOR 30 DAYS amitriptyli 2023-0 Yes TAKE 1 [facility] 50 mg 3-15 TABLET BY [facility] of tablet 00:00: [facility] EVERY DAY Medical AT BEDTIME [facility] FOR 30 DAYS cyclobenzap 2023-0 Yes TAKE 1 [facility] 10 mg 3-15 TABLET BY [facility] of tablet 00:00: [facility] THREE Medical TIMES A Branch DAY NEEDED FOR 30 DAYS amitriptyli 2023-0 Yes TAKE 1 [facility] 50 mg 3-15 TABLET BY [facility] of tablet 00:00: [facility] EVERY DAY Medical AT BEDTIME Branch FOR [...] TABLET BY it[facility] of tablet 00:00: [facility] EVERY DAY Medical AT BEDTIME [facility] FOR 30 DAYS cyclobenzap 2023-0 Yes TAKE 1 [facility] 10 mg 3-15 TABLET BY [facility] of tablet 00:00: [facility] THREE Medical TIMES A Branch DAY NEEDED FOR 30 DAYS amitriptyli 2023-0 Yes TAKE 1 [facility] 50 mg 3-15 TABLET BY [facility] of tablet 00:00: [facility] EVERY DAY Medical AT BEDTIME Branch FOR 30 DAYS cyclobenzap 2023-0 Yes TAKE 1 [facility] 10 mg 3-15 TABLET BY ity of tablet 00:00: MOUTH THREE Medical TIMES A Branch DAY NEEDED FOR 30 DAYS amitriptyli 2023-0 Yes TAKE 1 [facility] 50 mg 3-15 TABLET BY [facility] of tablet 00:00: [facility] EVERY DAY Medical AT BEDTIME Branch FOR [...] TABLET BY ity of tablet 00:00: [facility] EVERY DAY Medical AT BEDTIME [place] FOR 30 DAYS cyclobenzap 3-0 Yes TAKE 1 [facility] 10 mg 3-15 TABLET BY it[facility] of tablet 00:00: [facility] THREE Medical TIMES A Branch DAY NEEDED FOR 30 DAYS amitriptyli 2023-0 Yes TAKE 1 [facility] 50 mg 3-15 TABLET BY [facility] tablet 00:00[facility]-0 Yes TAKE 1 [facility] 10 mg 3-15 TABLET BY [facility] of tablet 00:00: [facility] THREE Medical TIMES A Branch DAY NEEDED FOR 30 DAYS amitriptyli 2023-0 Yes TAKE 1 [facility] 50 mg 3-15 TABLET BY [facility] of tablet 00:00: [facility] EVERY DAY Medical AT BEDTIME Branch FOR 30 DAYS cyclobenzap 3-0 Yes TAKE 1 [facility] 10 mg 3-15 TABLET BY ity of tablet 00:00: [facility] THREE Medical TIMES A Branch DAY NEEDED FOR 30 DAYS amitriptyli 2023-0 Yes TAKE 1 [facility] 50 mg 3-15 TABLET BY ity of tablet 00:00: [facility] EVERY DAY Medical AT BEDTIME Branch FOR 30 DAYS cyclobenzap 3-0 Yes TAKE 1 [facility] 10 mg 3-15 TABLET BY ity of tablet 00:00: [facility] THREE Medical TIMES A Branch DAY NEEDED FOR 30 DAYS amitriptyli 2023-0 Yes TAKE 1 [facility] 50 mg 3-15 TABLET BY ity of tablet 00:00: MOUTH [place] 00 EVERY DAY Medical AT [facility] FOR 30 DAYS cyclobenzap 2022-0 Yes TAKE 1 [facility] 10 mg 3-15 TABLET BY ity of tablet 00:00: MOUTH [place] 00 THREE Medical TIMES A Branch DAY NEEDED FOR 30 DAYS amitriptyli 2022-0 Yes TAKE 1 [facility] 50 mg 3-15 TABLET BY ity of tablet 00:00: MOUTH [place] 00 EVERY DAY Medical AT [facility] FOR 30 DAYS cyclobenzap 2022-0 Yes TAKE 1 [facility] 10 mg 3-15 TABLET BY ity of tablet 00:00: MOUTH [place] 00 THREE Medical TIMES A Branch DAY NEEDED FOR 30 DAYS amitriptyli 2022-0 Yes TAKE 1 [facility] 50 mg 3-15 TABLET BY ity of tablet 00:00: MOUTH [place] 00 EVERY DAY Medical AT [facility] FOR 30 DAYS cyclobenzap 2022-0 Yes TAKE 1 [facility] rine 10 mg 3-15 TABLET BY ity of tablet 00:00: [facility] 00 THREE Medical TIMES A Branch DAY NEEDED FOR 30 DAYS amitriptyli 2022-0 Yes TAKE 1 [facility] ne 50 mg 3-15 TABLET BY ity of tablet 00:00: [facility] 00 EVERY DAY Medical AT [facility] FOR 30 DAYS NaCl 0.9% 2022- No [...] [place] mg 00 :00 dose, On Medical Wed11/03/22 at 0900, STAT diphenhydrA 2022-0 2022- No 25mg 25 mg, Uni vers MINE 11-03 Slow IV ity of (BENADRYL) 15:00: 15:18 Push, [place] injection 00 :00 ONCE, 1 Medical 25 mg dose, On Branch Wed11/03/22 at 0900, STAT LORazepam 2023-0 Yes [id number] 1mg Take 1 U nivers (ATIVAN) 1 2-28 tablet by ity of mg tablet 00:00: mouth 2 [place] 00 (two) Medical times Branch daily as needed for Anxiety or Agitation. hydrOXYzine 2023-0 Yes [id number] 25mg Take 1 [facility] (VISTARIL) 2-28 capsule by ity of 25 mg 00:00: mouth 3 [place] capsule 00 (three) Medical times Branch daily as needed for Anxiety. LORazepam 2023-0 Yes [id number] 1mg Take 1 U nivers (ATIVAN) 1 2-28 tablet by ity of mg tablet 00:00: mouth 2 [place] 00 (two) Medical times Branch daily as needed for Anxiety or Agitation. hydrOXYzine 2023-0 Yes [id number] 25mg Take 1 [facility] (VISTARIL) 2-28 capsule by ity of 25 mg 00:00: mouth 3 [place] capsule 00 (three) Medical times Branch daily as needed for Anxiety. LORazepam 2023-0 Yes [id number] 1mg Take 1 [facility] (ATIVAN) 1 2-28 tablet by ity of mg tablet 00:00: mouth 2 [place] 00 (two) Medical times Branch daily as needed for Anxiety or Agitation. hydrOXYzine 2023-0 Yes [id number] 25mg Take 1 [facility] (VISTARIL) 2-28 capsule by ity of 25 mg 00:00: mouth 3 [place] capsule 00 (three) Medical times Branch daily as needed for Anxiety. LORazepam 2023-0 Yes [id number] 1mg Take 1 [facility]ivers (ATIVAN) 1 2-28 tablet by ity of mg tablet 00:00: mouth 2 [place] 00 (two) Medical times Branch daily as needed for Anxiety or Agitation. hydrOXYzine 2023-0 Yes [id number] 25mg Take 1 [facility] (VISTARIL) 2-28 capsule by ity of 25 mg 00:00: mouth 3 [place] capsule 00 (three) Medical times Branch daily as needed for Anxiety. LORazepam 2023-0 Yes [id number] 1mg Take 1 [facility] (ATIVAN) 1 2-28 tablet by ity of mg tablet 00:00: mouth 2 [place] 00 (two) Medical times Branch daily as needed for Anxiety or Agitation. hydrOXYzine 2023-0 Yes [id number] 25mg Take 1 [facility] (VISTARIL) 2-28 capsule by ity of 25 mg 00:00: mouth 3 [place] capsule 00 (three) Medical times Branch daily as needed for Anxiety. LORazepam 2023-0 Yes [id number] 1mg Take 1 [facility] (ATIVAN) 1 2-28 tablet by ity of mg tablet 00:00: mouth 2 [place] 00 (two) Medical times Branch daily as needed for Anxiety or Agitation. hydrOXYzine 2023-0 Yes [id number] 25mg Take 1 [facility] (VISTARIL) 2-28 capsule by ity of 25 mg 00:00: mouth 3 [place] capsule 00 (three) Medical times Branch daily as needed for Anxiety. LORazepam 2023-0 Yes [id number] 1mg Take 1 [facility] (ATIVAN) 1 2-28 tablet by ity of mg tablet 00:00: mouth 2 [place] 00 (two) Medical times Branch daily as needed for Anxiety or Agitation. hydrOXYzine 2023-0 Yes [id number] 25mg Take 1 Univers (VISTARIL) 2-28 capsule by ity of 25 mg 00:00: mouth 3 [place] capsule 00 (three) Medical times Branch daily as needed for Anxiety. LORazepam 2023-0 Yes [id number] 1mg Take 1 [facility] (ATIVAN) 1 2-28 tablet by ity of mg tablet 00:00: mouth 2 [place] 00 (two) Medical times Branch daily as needed for Anxiety or Agitation. hydrOXYzine 2023-0 Yes [id number] 25mg Take 1 Univers (VISTARIL) 2-28 capsule by ity of 25 mg 00:00: mouth 3 [place] capsule 00 (three) Medical times Branch daily as needed for Anxiety. LORazepam 2023-0 Yes [id number] 1mg Take 1 [facility] (ATIVAN) 1 2-28 tablet by ity of mg tablet 00:00: mouth 2 [place] 00 (two) Medical times Branch daily as needed for Anxiety or Agitation. hydrOXYzine 2023-0 Yes [id number] 25mg Take 1 [facility] (VISTARIL) 2-28 capsule by ity of 25 mg 00:00: mouth 3 [place] capsule 00 (three) Medical times Branch daily as needed for Anxiety. LORazepam 2023-0 Yes [id number] 1mg Take 1 [facility] (ATIVAN) 1 2-28 tablet by ity of mg tablet 00:00: mouth 2 [place] 00 (two) Medical times Branch daily as needed for Anxiety or Agitation. hydrOXYzine 2023-0 Yes [id number] 25mg Take 1 Univers (VISTARIL) 2-28 capsule by ity of 25 mg 00:00: mouth 3 [place] capsule 00 (three) Medical times Branch daily as needed for Anxiety. LORazepam 2023-0 Yes [id number] 1mg Take 1 [facility] (ATIVAN) 1 2-28 tablet by ity of mg tablet 00:00: mouth 2 [place] 00 (two) Medical times Branch daily as needed for Anxiety or Agitation. hydrOXYzine 2023-0 Yes [id number] 25mg Take 1 Univers (VISTARIL) 2-28 capsule by ity of 25 mg 00:00: mouth 3 [place] capsule 00 (three) Medical times Branch daily as needed for Anxiety. LORazepam 2023-0 Yes [id number] 1mg Take 1 [facility] (ATIVAN) 1 2-28 tablet by ity of mg tablet 00:00: mouth 2 [place] 00 (two) Medical times Branch daily as needed for Anxiety or Agitation. hydrOXYzine 2023-0 Yes [id number] 25mg Take 1 [facility] (VISTARIL) 2-28 capsule by ity of 25 mg 00:00: mouth 3 [place] capsule 00 (three) Medical times Branch daily as needed for Anxiety. LORazepam 2023-0 Yes [id number] 1mg Take 1 [facility] (ATIVAN) 1 2-28 tablet by ity of mg tablet 00:00: mouth 2 00 (two) Medical times Branch daily as needed for Anxiety or Agitation. hydrOXYzine 2023-0 Yes [id number] 25mg Take 1 [facility] (VISTARIL) 2-28 capsule by ity of 25 mg 00:00: mouth 3 [place] capsule 00 (three) Medical times Branch daily as needed for Anxiety. LORazepam 2023-0 Yes [id number] 1mg Take 1 [facility] (ATIVAN) 1 2-28 tablet by ity of mg tablet 00:00: mouth 2 [place] 00 (two) Medical times Branch daily as needed for Anxiety or Agitation. hydrOXYzine 2023-0 Yes [id number] 25mg Take 1 [facility] (VISTARIL) 2-28 capsule by ity of 25 mg 00:00: mouth 3 [place] capsule 00 (three) Medical times Branch daily as needed for Anxiety. LORazepam 2023-0 Yes [id number] 1mg Take 1 [facility] (ATIVAN) 1 2-28 tablet by ity of mg tablet 00:00: mouth 2 [place] 00 (two) Medical times Branch daily as needed for Anxiety or Agitation. hydrOXYzine 2023-0 Yes [id number] 25mg Take 1 [facility] (VISTARIL) 2-28 capsule by ity of 25 mg 00:00: mouth 3 [place] capsule 00 (three) Medical times Branch daily as needed for Anxiety. LORazepam 2023-0 Yes [id number] 1mg Take 1 [facility] (ATIVAN) 1 2-28 tablet by ity of mg tablet 00:00: mouth 2 [place] 00 (two) Medical times Branch daily as needed for Anxiety or Agitation. hydrOXYzine 2023-0 Yes [id number] 25mg Take 1 [facility] (VISTARIL) 2-28 capsule by ity of 25 mg 00:00: mouth 3 [place] capsule 00 (three) Medical times Branch daily as needed for Anxiety. LORazepam 2023-0 Yes [id number] 1mg Take 1 [facility] (ATIVAN) 1 2-28 tablet by ity of mg tablet 00:00: mouth 2 [place] 00 (two) Medical times Branch daily as needed for Anxiety or Agitation. hydrOXYzine 2023-0 Yes [id number] 25mg Take 1 Univers (VISTARIL) 2-28 capsule by ity of 25 mg 00:00: mouth 3 [place] capsule 00 (three) Medical times Branch daily as needed for Anxiety. LORazepam 2023-0 Yes [id number] 1mg Take 1 [facility] (ATIVAN) 1 2-28 tablet by ity of mg tablet 00:00: mouth 2 [place] 00 (two) Medical times Branch daily as needed for Anxiety or Agitation. hydrOXYzine 2023-0 Yes [id number] 25mg Take 1 [facility] (VISTARIL) 2-28 capsule by ity of 25 mg 00:00: mouth 3 [place] capsule 00 (three) Medical times Branch daily as needed for Anxiety. LORazepam 2023-0 Yes [id number] 1mg Take 1 [facility] (ATIVAN) 1 2-28 tablet by ity of mg tablet 00:00: mouth 2 (two) Medical times Branch daily as needed for Anxiety or Agitation. hydrOXYzine 2023-0 Yes [id number] 25mg Take 1 [facility] (VISTARIL) 2-28 capsule by ity of 25 mg 00:00: mouth 3 [place] capsule 00 (three) Medical times Branch daily as needed for Anxiety. LORazepam 2023-0 Yes [id number] 1mg Take 1 [facility] (ATIVAN) 1 2-28 tablet by ity of mg tablet 00:00: mouth 2 (two) Medical times Branch daily as needed for Anxiety or Agitation. hydrOXYzine 2023-0 Yes [id number] 25mg Take 1 [facility] (VISTARIL) 2-28 capsule by ity of 25 mg 00:00: mouth 3 [place] capsule 00 (three) Medical times Branch daily as needed for Anxiety. LORazepam 2023-0 Yes [id number] 1mg Take 1 [facility]ivers (ATIVAN) 1 2-28 tablet by ity of mg tablet 00:00: mouth 2 (two) Medical times Branch daily as needed for Anxiety or Agitation. hydrOXYzine 2023-0 Yes [id number] 25mg Take 1 [facility] (VISTARIL) 2-28 capsule by ity of 25 mg 00:00: mouth 3 [place] capsule 00 (three) Medical times Branch daily as needed for Anxiety. LORazepam 2023-0 Yes [id number] 1mg Take 1 [facility] (ATIVAN) 1 2-28 tablet by ity of mg tablet 00:00: mouth 2 (two) Medical times Branch daily as needed for Anxiety or Agitation. hydrOXYzine 2023-0 Yes [id number] 25mg Take 1 [facility] (VISTARIL) 2-28 capsule by ity of 25 mg 00:00: mouth 3 [place] capsule 00 (three) Medical times Branch daily as needed for Anxiety. LORazepam 2023-0 Yes [id number] 1mg Take 1 [facility] nivers (ATIVAN) 1 2-28 tablet by ity of mg tablet 00:00: mouth 2 00 (two) Medical times Branch daily as needed for Anxiety or Agitation. hydrOXYzine 2023-0 Yes [id number] 25mg Take 1 [facility] (VISTARIL) 2-28 capsule by ity of 25 mg 00:00: mouth 3 [place] capsule 00 (three) Medical times Branch daily as needed for Anxiety. LORazepam 2023-0 Yes [id number] 1mg Take 1 U nivers (ATIVAN) 1 2-28 tablet by ity of mg tablet 00:00: mouth 2 [place] (two) Medical times Branch daily as needed for Anxiety or Agitation. hydrOXYzine 2023-0 Yes [id number] 25mg Take 1 [facility] (VISTARIL) 2-28 capsule by ity of 25 mg 00:00: mouth 3 [place] capsule 00 (three) Medical times Branch daily as needed for Anxiety. LORazepam 2023-0 Yes [id number] 1mg Take 1 [facility]ivers (ATIVAN) 1 2-28 tablet by ity of mg tablet 00:00: mouth 2 [place] (two) Medical times Branch daily as needed for Anxiety or Agitation. LORazepam 2023-0 Yes [id number] 1mg Take 1 [facility]ivers (ATIVAN) 1 2-28 tablet by ity of mg tablet 00:00: mouth 2 [place] (two) Medical times Branch daily as needed for Anxiety or Agitation. LORazepam 2023-0 Yes [id number] 1mg Take 1 [facility] nivers (ATIVAN) 1 2-28 tablet by ity of mg tablet 00:00: mouth 2 [place] (two) Medical times Branch daily as needed for Anxiety or Agitation. LORazepam 2023-0 Yes [id number] 1mg Take 1 [facility]ivers (ATIVAN) 1 2-28 tablet by ity of mg tablet 00:00: mouth 2 [place] (two) Medical times Branch daily as needed for Anxiety or Agitation. LORazepam 2023-0 Yes [id number] 1mg Take 1 U nivers (ATIVAN) 1 2-28 tablet by ity of mg tablet 00:00: mouth 2 [place] (two) Medical times Branch daily as needed for Anxiety or Agitation. LORazepam 2023-0 Yes [id number] 1mg Take 1 [facility] nivers (ATIVAN) 1 2-28 tablet by ity of mg tablet 00:00: mouth 2 [place] (two) Medical times Branch daily as needed for Anxiety or Agitation. LORazepam 2023-0 Yes [id number] 1mg Take 1 [facility] nivers (ATIVAN) 1 2-28 tablet by ity of mg tablet 00:00: mouth 2 [place] (two) Medical times Branch daily as needed for Anxiety or Agitation. LORazepam 2023-0 Yes [id number] 1mg Take 1 [facility]ivers (ATIVAN) 1 2-28 tablet by ity of mg tablet 00:00: mouth (two) Medical times Branch daily as needed for Anxiety or Agitation. LORazepam 2023-0 Yes [id number] 1mg Take 1 [facility] nivers (ATIVAN) 1 2-28 tablet by ity of mg tablet 00:00: mouth (two) Medical times Branch daily as needed for Anxiety or Agitation. LORazepam 2023-0 Yes [id number] 1mg Take 1 [facility] nivers (ATIVAN) 1 2-28 tablet by ity of mg tablet 00:00: mouth (two) Medical times Branch daily as needed for Anxiety or Agitation. LORazepam 3-0 Yes [id number] 1mg Take 1 [facility] nivers (ATIVAN) 1 2-28 tablet by ity of mg tablet 00:00: mouth (two) Medical times Branch daily as needed for Anxiety or Agitation. LORazepam 3-0 Yes [id number] 1mg Take 1 U nivers (ATIVAN) 1 2-28 tablet by ity of mg tablet 00:00: mouth (two) Medical times Branch daily as needed for Anxiety or Agitation. LORazepam 2023-0 Yes [id number] 1mg Take 1 [facility] nivers (ATIVAN) 1 2-28 tablet by ity of mg tablet 00:00: mouth (two) Medical times Branch daily as needed for Anxiety or Agitation. LORazepam 3-0 Yes [id number] 1mg Take 1 [facility]ivers (ATIVAN) 1 2-28 tablet by ity of mg tablet 00:00: mouth (two) Medical times Branch daily as needed for Anxiety or Agitation. LORazepam 2023-0 Yes [id number] 1mg Take 1 [facility] nivers (ATIVAN) 1 2-28 tablet by ity of mg tablet 00:00: mouth (two) Medical times Branch daily as needed for Anxiety or Agitation. LORazepam 2023-0 Yes [id number] 1mg Take 1 [facility] nivers (ATIVAN) 1 2-28 tablet by ity of mg tablet 00:00: mouth (two) Medical times Branch daily as needed for Anxiety or Agitation. LORazepam 2023-0 Yes [id number] 1mg Take 1 [facility] nivers (ATIVAN) 1 2-28 tablet by ity of mg tablet 00:00: mouth 2 [place] (two) Medical times Branch daily as needed for Anxiety or Agitation. LORazepam 2023-0 Yes [id number] 1mg Take 1 U nivers (ATIVAN) 1 2-28 tablet by ity of mg tablet 00:00: mouth 2 [place] (two) Medical times Branch daily as needed for Anxiety or Agitation. LORazepam 2023-0 Yes [id number] 1mg Take 1 [facility] (ATIVAN) 1 2-28 tablet by ity of mg tablet 00:00: mouth 2 (two) Medical times Branch daily as needed for Anxiety or Agitation. LORazepam 2023-0 Yes [id number] 1mg Take 1 [facility] (ATIVAN) 1 2-28 tablet by ity of mg tablet 00:00: mouth 2 (two) Medical times Branch daily as needed for Anxiety or Agitation. LORazepam 2023-0 Yes [id number] 1mg Take 1 [facility] (ATIVAN) 1 2-28 tablet by ity of mg tablet 00:00: mouth 2 (two) Medical times Branch daily as needed for Anxiety or Agitation. LORazepam 2023-0 Yes [id number] 1mg Take 1 [facility] (ATIVAN) 1 2-28 tablet by ity of mg tablet 00:00: mouth 2 (two) Medical times Branch daily as needed for Anxiety or Agitation. LORazepam 2023-0 Yes [id number] 1mg Take 1 [facility] (ATIVAN) 1 2-28 tablet by ity of mg tablet 00:00: mouth 2 [place] (two) Medical times Branch daily as needed for Anxiety or Agitation. hydrOXYzine 2023-0 Yes [id number] 25mg Take 1 [facility] (VISTARIL) 2-28 capsule by ity of 25 mg 00:00: mouth 3 [place] capsule 00 (three) Medical times Branch daily as needed for Anxiety. LORazepam 2023-0 Yes [id number] 1mg Take 1 [facility] (ATIVAN) 1 2-28 tablet by ity of mg tablet 00:00: mouth 2 [place] 00 (two) Medical times Branch daily as needed for Anxiety or Agitation. hydrOXYzine 2023-0 Yes [id number] 25mg Take 1 [facility] (VISTARIL) 2-28 capsule by ity of 25 mg 00:00: mouth 3 [place] capsule 00 (three) Medical times Branch daily as needed for Anxiety. LORazepam 2023-0 Yes [id number] 1mg Take 1 [facility] (ATIVAN) 1 2-28 tablet by ity of mg tablet 00:00: mouth 2 [place] 00 (two) Medical times Branch daily as needed for Anxiety or Agitation. hydrOXYzine 2023-0 Yes [id number] 25mg Take 1 [facility] (VISTARIL) 2-28 capsule by ity of 25 mg 00:00: mouth 3 [place] capsule 00 (three) Medical times Branch daily as needed for Anxiety. LORazepam 2023-0 Yes [id number] 1mg Take 1 [facility] (ATIVAN) 1 2-28 tablet by ity of mg tablet 00:00: mouth 2 [place] 00 (two) Medical times Branch daily as needed for Anxiety or Agitation. hydrOXYzine 2023-0 Yes [id number] 25mg Take 1 [facility] (VISTARIL) 2-28 capsule by ity of 25 mg 00:00: mouth 3 [place] capsule 00 (three) Medical times Branch daily as needed for Anxiety. LORazepam 2023-0 Yes [id number] 1mg Take 1 [facility] (ATIVAN) 1 2-28 tablet by ity of mg tablet 00:00: mouth 2 [place] 00 (two) Medical times Branch daily as needed for Anxiety or Agitation. hydrOXYzine 2023-0 Yes [id number] 25mg Take 1 [facility] (VISTARIL) 2-28 capsule by ity of 25 mg 00:00: mouth 3 [place] capsule 00 (three) Medical times Branch daily as needed for Anxiety. LORazepam 2023-0 Yes [id number] 1mg Take 1 [facility] nivers (ATIVAN) 1 2-28 tablet by ity of mg tablet 00:00: mouth 2 [place] 00 (two) Medical times Branch daily as needed for Anxiety or Agitation. hydrOXYzine 2023-0 Yes [id number] 25mg Take 1 [facility] (VISTARIL) 2-28 capsule by ity of 25 mg 00:00: mouth 3 [place] capsule 00 (three) Medical times Branch daily as needed for Anxiety. LORazepam 2023-0 Yes [id number] 1mg Take 1 [facility] (ATIVAN) 1 2-28 tablet by ity of mg tablet 00:00: mouth 2 [place] 00 (two) Medical times Branch daily as needed for Anxiety or Agitation. hydrOXYzine 2022-0 Yes [id number] 25mg Take 1 [facility] (VISTARIL) 2-28 capsule by ity of 25 mg 00:00: mouth 3 [place] capsule 00 (three) Medical times Branch daily as needed for Anxiety. LORazepam 2022-0 Yes [id number] 1mg Take 1 [facility] (ATIVAN) 1 2-28 tablet by ity of mg tablet 00:00: mouth 2 [place] 00 (two) Medical times Branch daily as needed for Anxiety or Agitation. hydrOXYzine 2022-0 Yes [id number] 25mg Take 1 [facility] (VISTARIL) 2-28 capsule by ity of 25 mg 00:00: mouth 3 [place] capsule 00 (three) Medical times Branch daily as needed for Anxiety. hydrOXYzine 0 2022- No [id number] 25mg Take 1 [facility] (VISTARIL) 2-28 06-27 capsule by it y of 25 mg 00:00: 00:00 mouth 3 [place] capsule 00 :00 (three) Medical times Branch daily as needed for Anxiety. hydrOXYzine 2022-0 2022- No [id number] 25mg Take 1 [facility] (VISTARIL) 2-28 06-27 capsule by it y of 25 mg 00:00: 00:00 mouth 3 [place] capsule 00 :00 (three) Medical times Branch daily as needed for Anxiety. iopamidol 2022- No [id number] 75mL 75 mL, [facility] (ISOVUE 10-13 Intravenou [...] Medical 10/13/22 Branch at 0315, Routine famotidine Yes TAKE 1 Unive rs 20 mg 1-25 TABLET BY ity of tablet 00:00: MOUTH IN [place] 00 THE Medical MORNING Branch AND IN THE EVENING FOR 5 DAYS famotidine 2022-0 Yes TAKE 1 Unive rs 20 mg 1-25 TABLET BY ity of tablet 00:00: MOUTH IN [place] 00 THE Medical MORNING Branch AND IN THE EVENING FOR 5 DAYS famotidine 2022-0 Yes TAKE 1 Unive rs 20 mg 1-25 TABLET BY ity of tablet 00:00: MOUTH IN [place] 00 THE Medical MORNING Branch AND IN THE EVENING FOR 5 DAYS famotidine 2022-0 Yes TAKE 1 Unive rs 20 mg 1-25 TABLET BY ity of tablet 00:00: MOUTH IN [place] 00 THE Medical MORNING Branch AND IN THE EVENING FOR 5 DAYS famotidine 2022-0 Yes TAKE 1 Unive rs 20 mg 1-25 TABLET BY ity of tablet 00:00: MOUTH IN [place] 00 THE Medical MORNING Branch AND IN THE EVENING FOR 5 DAYS famotidine 2022-0 Yes TAKE 1 [facility]ive rs 20 mg 1-25 TABLET BY ity of tablet 00:00: MOUTH IN [place] 00 THE Medical MORNING Branch AND IN THE EVENING FOR 5 DAYS famotidine 2022-0 Yes TAKE 1 [facility] rs 20 mg 1-25 TABLET BY ity of tablet 00:00: MOUTH IN [place] 00 THE Medical MORNING Branch AND IN THE EVENING FOR 5 DAYS famotidine 2022-0 Yes TAKE 1 Unive rs 20 mg 1-25 TABLET BY ity of tablet 00:00: MOUTH IN [place] 00 THE Medical MORNING Branch AND IN THE EVENING FOR 5 DAYS famotidine 2022-0 Yes TAKE 1 Unive rs 20 mg 1-25 TABLET BY ity of tablet 00:00: MOUTH IN [place] 00 THE Medical MORNING Branch AND IN THE EVENING FOR 5 DAYS famotidine 2022-0 Yes TAKE 1 Unive rs 20 mg 1-25 TABLET BY ity of tablet 00:00: MOUTH IN [place] 00 THE Medical MORNING Branch AND IN THE EVENING FOR 5 DAYS famotidine 2022-0 Yes TAKE 1 Unive rs 20 mg 1-25 TABLET BY ity of tablet 00:00: MOUTH IN [place] [address] THE Medical MORNING Branch AND IN THE EVENING FOR 5 DAYS famotidine 2022-0 Yes TAKE 1 Unive rs 20 mg 1-25 TABLET BY ity of tablet 00:00: MOUTH IN [place] 00 THE Medical MORNING Branch AND IN THE EVENING FOR 5 DAYS famotidine 2023-0 2023- No TAKE 1 Univ ers 20 mg 09-30-12 TABLET BY ity of tablet 00:00: 00:00 [...] at 1830, 1 mL predniSONE 2022- No [id number] 40mg Take 2 [facility] 20 mg 09-10 tablets by ity of tablet 00:00: 05:59 mouth in [place] 00 :00 the [facility] Branch for 5 days. famotidine 2022- No [id number] 20mg Take 1 [facility] (PEPCID) 20 09-09 01-10 tablet by it y of mg tablet 00:00: 05:59 mouth in [facility] as 00 :00 the [facility] Branch and 1 tablet in the evening. Do all this for 5 days. HYDROcodone 2021-09- No 1{tbl} 1 tablet, Univers -acetaminop 2-14 12-13 Oral, ity of hen (NORCO) 00:00: 22:59 [place]CE, 1 [place] 10-325 mg 00 :00 dose, On Medica l tablet 1 e Branch tablet 08/18/22 at 1800, Routine oseltamivir 2021-09- No [id number] 75mg Take 1 [facility] (TAMIFLU) 2-13 12-19 capsule by ity of 75 mg 00:00: 05:59 mouth in [place] capsule 00 :00 the [facility] Branch and 1 capsule in the evening. Do all this for 5 days. oxyCODONE 5 Yes 5mg Take 1 Univ ers mg [...] ity of immediate 00:00: 00:00 mouth. [place] [facility] 00 :00 Medical tablet Branch naproxen 2-0 Yes naproxen Unive rs 500 mg 9-16 500 mg ity of tablet 00:00: tablet [place] [facility] Branch naproxen 2021-0 Yes naproxen Unive rs 500 mg 9-16 500 mg ity of tablet 00:00: tablet [place] [facility] naproxen 2-0 Yes naproxen Unive rs 500 mg 9-16 500 mg ity of tablet 00:00: tablet [place] [facility] naproxen 2-0 Yes naproxen Unive rs 500 mg 9-16 500 mg ity of tablet 00:00: tablet [place] [facility] naproxen 2021-0 Yes naproxen Unive rs 500 mg 9-16 500 mg ity of tablet 00:00: tablet [place] [facility] naproxen 2021-0 Yes naproxen Unive rs 500 mg 9-16 500 mg ity of tablet 00:00: tablet [place] [facility] naproxen 2021-0 Yes naproxen Unive rs 500 mg 9-16 500 mg ity of tablet 00:00: tablet [place] [facility] naproxen 2-0 Yes naproxen Unive rs 500 mg 9-16 500 mg ity of tablet 00:00: tablet [place] [facility] naproxen 2-0 Yes naproxen Unive rs 500 mg 9-16 500 mg ity of tablet 00:00: tablet [place] [facility] naproxen 2-0 Yes naproxen Unive rs 500 mg 9-16 500 mg ity of tablet 00:00: tablet [place] [facility] naproxen 2-0 Yes naproxen Unive rs 500 mg 9-16 500 mg ity of tablet 00:00: tablet [place] [facility] naproxen 2-0 Yes naproxen Unive rs 500 mg 9-16 500 mg ity of tablet 00:00: tablet [place] [facility] naproxen 2-0 3- No naproxen Univ ers 500 mg 9-16 05-12 500 mg ity of tablet 00:00: 00:00 tablet [place] 00 :00 Medical Branch prazosin 2 2021-0 Yes 2mg Take 1 Unive rs mg capsule 9-15 capsule by ity of 00:00: mouth. [place] 00 Medical Branch prazosin 2 2021-0 Yes 2mg [...] 9-15 capsule by ity of 00:00: mouth. [place] [facility] prazosin 2 2021-0 Yes 2mg Take 1 Unive rs mg capsule 9-15 capsule by ity of 00:00: mouth. Medical Branch prazosin 2 2021-0 Yes 2mg Take 1 Unive rs mg capsule 9-15 capsule by ity of 00:00: mouth. Medical Branch prazosin 2 2021-0 Yes 2mg Take 1 Unive rs mg capsule 9-15 capsule by ity of 00:00: mouth. [place] [facility] prazosin 2 2021-0 Yes 2mg Take 1 Unive rs mg capsule 9-15 capsule by ity of 00:00: mouth. Medical Branch prazosin 2 2021-0 Yes 2mg Take 1 Unive rs mg capsule 9-15 capsule by ity of 00:00: mouth. [place] [facility] prazosin 2 2021-0 Yes 2mg Take 1 Unive rs mg capsule 9-15 capsule by ity of 00:00: mouth. [place] [facility] prazosin 2 2021-0 3- No 2mg Take 1 Univ ers mg capsule 9-15 05-12 capsule by it y of 00:00: 00:00 mouth. [place] 00 :00 Medical Branch naloxone 4 2021-0 [...] 2022- No CALL 911. U nivers mg/actuatio 04-30 [...] hr 00:00: [place] capsule Medical Branch venlafaxine 2022-0 Yes Univer s XR 37.5 mg 8-17 [...] TO 7 DAYS NEEDED FOR PAIN diazePAM Yes Univer s mg tablet 7-06 ity of 00:00: [place] 00 Medical Branch HYDROcodone 2021-0 2021- No 1{tbl} Q6H Take 1 Methodi -acetaminop 5-17 05-[address] [place] ([facility]OCOM) 13:50: 00:00 mouth [facility] 10-325 mg 15 :00 every 6 l per tablet (six) hours as needed .acute pain. prn HYDROcodone No 1{tbl} Q6H Take 1 [facility] -acetaminop 5-17 05-[address] [facility]) 13:50: 00:00 mouth [facility] 10-325 mg 15 :00 every 6 l per tablet (six) hours as needed .acute pain. prn HYDROcodone No 1{tbl} Q6H Take 1 [facility] -acetaminop 5-17 05-[address] [facility]) 13:50: 00:00 mouth [facility] 10-325 mg 15 :00 every 6 l per tablet (six) hours as needed .acute pain. prn HYDROcodone No 1{tbl} Q6H Take 1 [facility] -acetaminop 5-17 05-[address] [facility] (IOCOM) 13:50: 00:00 mouth [facility] 10-325 mg 15 :00 every 6 l per tablet (six) hours as needed .acute pain. prn HYDROcodone 2021- No 1{tbl} Q6H Take 1 [facility] -acetaminop 5-17 05-[address] [facility] (IOCOM) 13:50: 00:00 mouth [facility] 10-325 mg [...] as needed for muscle spasms. tiZANidine 0 2- No 4mg Q8H Take 4 mg [...] 7 l days. cyclobenzap 2022-0 Yes 10mg Q.[id number] Take 10 mg [facility]i rine 5-17 [id number] [address] mouth [address] (FLEXERIL) 13:09: 3D [...] hours as needed. cyclobenzap 2022-0 Yes 10mg Q.[id number] Take 10 mg Methodi rine 5-17 [id number] [facility] mouth [facility] (FLEXERIL) 13:09: 3D [...] hours as needed. cyclobenzap 2022-0 Yes 10mg Q.[id number] Take 10 mg Methodi rine 5-17 [id number] [facility] mouth [address] (FLEXERIL) 13:09: 3D [...] hours as needed. cyclobenzap 2022-0 Yes 10mg Q.[id number] Take 10 mg Methodi rine 5-17 [id number] [address] [facility] [address] (FLEXERIL) 13:09: 3D [...] hours as needed. cyclobenzap 2022-0 Yes 10mg Q.[id number] Take 10 mg Methodi rine 5-17 [id number] [address] mouth [address] (FLEXERIL) 13:09: 3D [...] hours as needed. cyclobenzap 2022-0 Yes 10mg Q.[id number] Take 10 mg Methodi rine 5-17 [id number] [facility] mouth [address] (FLEXERIL) 13:09: 3D [...] hours as needed. cyclobenzap 2022-0 Yes 10mg Q.[id number] Take 10 mg Methodi rine 5-17 [id number] [address] mouth [address] (FLEXERIL) 13:09: 3D [...] hours as needed. cyclobenzap 2022-0 Yes 10mg Q.[id number] Take 10 mg Methodi rine 5-17 [id number] [address] mouth [address] (FLEXERIL) 13:09: 3D [...] hours as needed. cyclobenzap 2022-0 Yes 10mg Q.[id number] Take 10 mg Methodi rine 5-17 [id number] [address] mouth [address] (FLEXERIL) 13:09: 3D [...] hours as needed. cyclobenzap 2022-0 Yes 10mg Q.[id number] Take 10 mg Methodi rine 5-17 [id number] [address] [facility] [address] (FLEXERIL) 13:09: 3D [...] hours as needed. cyclobenzap 2022-0 Yes 10mg Q.[id number] Take 10 mg Methodi rine 5-17 [id number] mouth [address] (FLEXERIL) 13:09: 3D [...] hours as needed. cyclobenzap 2022-0 Yes 10mg Q.[id number] Take 10 mg Methodi rine 5-17 [id number] [address] mouth [address] (FLEXERIL) 13:09: 3D [...] hours as needed. cyclobenzap 2022-0 Yes 10mg Q.07752750 Take 10 mg Methodi rine 5-17 [id number] [address] mouth [address] (FLEXERIL) 13:09: 3D [...] hours as needed. cyclobenzap 2022-0 Yes 10mg Q.[id number] Take 10 mg Methodi rine 5-17 [id number] mouth [address] (FLEXERIL) 13:09: 3D [...] hours as needed. cyclobenzap 2022-0 Yes 10mg Q.[id number] Take 10 mg Methodi rine 5-17 [id number] mouth [address] (FLEXERIL) 13:09: 3D [...] hours as needed. cyclobenzap 2022-0 Yes 10mg Q.[id number] Take 10 mg Methodi rine 5-17 [id number] mouth [address] (FLEXERIL) 13:09: 3D (three) [facility] 10 mg 39 times a l tablet day as needed [place]. [place] [id number] 1{tbl} Q6H Take 1 [facility] -acetaminop 5-17 06-[address] [facility] ([facility]) 00:00: 04:59 mouth [facility] 10-325 mg 00 :00 every 6 l per tablet (six) hours as needed for severe pain for up to 30 days .chronic pain. prn Max Daily Amount: 4 tablets HYDROcodone 2021- No [id number] 1{tbl} Q6H Take 1 [facility] -acetaminop 5-17 06-[address] [facility] ([facility]) 00:00: 04:59 mouth [facility] 10-325 mg 00 :00 every 6 l per tablet (six) hours as needed for severe pain for up to 30 days .chronic pain. prn Max Daily Amount: 4 [place] [id number] 1{tbl} Q6H Take 1 [facility] -acetaminop 5-17 06-[address] [facility] ([facility]) 00:00: 04:59 mouth [facility] 10-325 mg 00 :00 every 6 l per tablet (six) hours as needed for severe pain for up to 30 days .chronic pain. prn Max Daily Amount: 4 tablets HYDROcodone 2021- No [id number] 1{tbl} Q6H Take 1 [facility] -acetaminop 5-17 06-[address] [facility] ([facility]) 00:00: 04:59 mouth [facility] 10-325 mg 00 :00 every 6 l per tablet (six) hours as needed for severe pain for up to 30 days .chronic pain. prn Max Daily Amount: 4 tablets HYDROcodone 2021-0 No [id number] 1{tbl} Q6H Take 1 [facility] -acetaminop 5-17 06-[address] [facility] (IOCOM) 00:00: 04:59 mouth [facility] 10-325 mg 00 :00 every 6 l per tablet (six) hours as needed for severe pain for up to 30 days .chronic pain. prn Max Daily Amount: 4 tablets HYDROcodone 2021-0 No [id number] 1{tbl} Q6H Take 1 [facility] -acetaminop 5-17 06-[address] [facility] (IOCOM) 00:00: 04:59 mouth [facility] 10-325 mg 00 :00 every 6 l per tablet (six) hours as needed for severe pain for up to 30 days .chronic pain. prn Max Daily Amount: 4 [place] [id number] 1{tbl} Q6H Take 1 [facility] -acetaminop 5-17 06-[address] [facility] (IOCOM) 00:00: 04:59 mouth [facility] 10-325 mg [...] 10mg Q12H Take 1 Method i (VALIUM) 10-01 03-28 tablet (10 s t MG [...] up to 60 days. diazePAM 2020-09- No [id number] 10mg Q12H Take 1 [facility] (VALIUM) 10 10-15 tablet (10 s t MG tablet 00:00: 05:59 mg total) [facility] 00 :00 by mouth l every 12 (twelve) hours as needed for anxiety for up to 30 days. diazePAM 2020-09- No [id number] 10mg Q12H Take 1 [facility] (VALIUM) 10 10-15 tablet (10 s t MG tablet 00:00: 05:59 mg total) [facility] 00 :00 by mouth l every 12 (twelve) hours as needed for anxiety for up to 30 days. diazePAM 2020-09- No [id number] 10mg Q12H Take 1 [facility] (VALIUM) 10 10-15 tablet (10 s t MG tablet 00:00: 05:59 mg total) [facility] 00 :00 by mouth l every 12 (twelve) hours as needed for anxiety for up to 30 days. diazePAM 2020-09- No [id number] 10mg Q12H Take 1 [facility] (VALIUM) [...] as needed for anxiety. diazePAM 2020-09- No [id number] 10mg Q12H Take 1 [facility] (VALIUM) 10 09-09 12- tablet (10 s t MG tablet 00:00: 05:59 mg total) [facility] 00 :00 by mouth l every 12 (twelve) hours as needed for anxiety for up to 30 days. diazePAM 2020-09- No [id number] 10mg Q12H Take 1 [facility] (VALIUM) 10 09-09 12-05 tablet (10 s t MG tablet 00:00: 05:59 mg total) [facility] 00 :00 by mouth l every 12 (twelve) hours as needed for anxiety for up to 30 days. diazePAM 2020-09- No [id number] 10mg Q12H Take 1 [facility] (VALIUM) 10 09-09 12-05 tablet (10 s t MG tablet 00:00: 05:59 mg total) [facility] 00 :00 by mouth l every 12 (twelve) hours as needed for anxiety for up to 30 days. diazePAM 2020-09- No [id number] 10mg Q12H Take 1 [facility] (VALIUM) 10 09-09 12-05 tablet (10 s t MG tablet 00:00: 05:59 mg total) [facility] 00 :00 by mouth l every 12 (twelve) hours as needed for anxiety for up to 30 days. azithromyci 2020-09- No [id number] 250mg QD Take 1 Methodi n [address] (Zithromax 00:00: 00:00 (250 mg [facility] Z-[facility]) 250 00 :00 total) by l MG tablet mouth daily. Take 2 tablets the first day, then 1 tablet daily for 4 days. pantoprazol Yes [id number] 40mg Take 1 Univers e 4-18 tablet by ity of (PROTONIX) 00:00: mouth [place] 40 mg EC 00 daily. Medical tablet Branch dicyclomine Yes [id number] 20mg Take 1 [facility] 20 mg 4-18 tablet by ity of tablet 00:00: mouth [place] 00 every 6 Medical (six) Branch hours as needed for Abdominal pain. ondansetron 0 Yes [id number] 4mg Take 1 Univers (ZOFRAN) 4 4-18 tablet by ity of mg tablet 00:00: mouth [place] 00 every 8 Medical (eight) Branch hours as needed for Nausea and Vomiting (N/V). pantoprazol 0 Yes [id number] 40mg Take 1 Univers e 4-18 tablet by ity of (PROTONIX) 00:00: mouth [place] 40 mg EC 00 daily. Medical tablet Branch dicyclomine Yes [id number] 20mg Take 1 [facility] 20 mg 4-18 tablet by ity of tablet 00:00: mouth [place] 00 every 6 Medical (six) Branch hours as needed for Abdominal pain. ondansetron 2021-0 Yes [id number] 4mg Take 1 [facility] (ZOFRAN) 4 4-18 tablet by ity of mg tablet 00:00: mouth [place] 00 every 8 Medical (eight) Branch hours as needed for Nausea and Vomiting (N/V). pantoprazol 2020-0 Yes [id number] 40mg Take 1 Univers e 4-18 tablet by ity of (PROTONIX) 00:00: mouth [place] 40 mg EC 00 daily. Medical tablet Branch dicyclomine 2020-0 Yes [id number] 20mg Take 1 [facility] 20 mg 4-18 tablet by ity of tablet 00:00: mouth [place] 00 every 6 Medical (six) Branch hours as needed for Abdominal pain. ondansetron 2020-0 Yes [id number] 4mg Take 1 Univers (ZOFRAN) 4 4-18 tablet by ity of mg tablet 00:00: mouth [place] 00 every 8 Medical (eight) Branch hours as needed for Nausea and Vomiting (N/V). pantoprazol 0 Yes [id number] 40mg Take 1 Univers e 4-18 tablet by ity of (PROTONIX) 00:00: mouth [place] 40 mg EC 00 daily. Medical tablet Branch dicyclomine 0 Yes [id number] 20mg Take 1 [facility] 20 mg 4-18 tablet by ity of tablet 00:00: mouth [place] 00 every 6 Medical (six) Branch hours as needed for Abdominal pain. ondansetron 0 Yes [id number] 4mg Take 1 [facility] (ZOFRAN) 4 4-18 tablet by ity of mg tablet 00:00: mouth [place] 00 every 8 Medical (eight) Branch hours as needed for Nausea and Vomiting (N/V). pantoprazol 2020-0 Yes [id number] 40mg Take 1 Univers e 4-18 tablet by ity of (PROTONIX) 00:00: mouth [place] 40 mg EC 00 daily. Medical tablet Branch dicyclomine 2020-0 Yes [id number] 20mg Take 1 [facility] 20 mg 4-18 tablet by ity of tablet 00:00: mouth [place] 00 every 6 Medical (six) Branch hours as needed for Abdominal pain. ondansetron 2020-0 Yes [id number] 4mg Take 1 [facility] (ZOFRAN) 4 4-18 tablet by ity of mg tablet 00:00: mouth [place] 00 every 8 Medical (eight) Branch hours as needed for Nausea and Vomiting (N/V). pantoprazol 2020-0 Yes [id number] 40mg Take 1 Univers e 4-18 tablet by ity of (PROTONIX) 00:00: mouth [place] 40 mg EC 00 daily. Medical tablet Branch dicyclomine 2020-0 Yes [id number] 20mg Take 1 [facility] 20 mg 4-18 tablet by ity of tablet 00:00: mouth [place] 00 every 6 Medical (six) Branch hours as needed for Abdominal pain. ondansetron 2020-0 Yes [id number] 4mg Take 1 [facility] (ZOFRAN) 4 4-18 tablet by ity of mg tablet 00:00: mouth [place] 00 every 8 Medical (eight) Branch hours as needed for Nausea and Vomiting (N/V). pantoprazol 2020-0 Yes [id number] 40mg Take 1 Univers e 4-18 tablet by ity of (PROTONIX) 00:00: mouth [place] 40 mg EC 00 daily. Medical tablet Branch dicyclomine 2020-0 Yes [id number] 20mg Take 1 [facility] 20 mg 4-18 tablet by ity of tablet 00:00: mouth [place] 00 every 6 Medical (six) Branch hours as needed for Abdominal pain. ondansetron 2020-0 Yes [id number] 4mg Take 1 [facility] (ZOFRAN) 4 4-18 tablet by ity of mg tablet 00:00: mouth [place] 00 every 8 Medical (eight) Branch hours as needed for Nausea and Vomiting (N/V). pantoprazol 2020-0 Yes [id number] 40mg Take 1 Univers e 4-18 tablet by ity of (PROTONIX) 00:00: mouth [place] 40 mg EC 00 daily. Medical tablet Branch dicyclomine 2020-0 Yes [id number] 20mg Take 1 [facility] 20 mg 4-18 tablet by ity of tablet 00:00: mouth [place] 00 every 6 Medical (six) Branch hours as needed for Abdominal pain. ondansetron 2020-0 Yes [id number] 4mg Take 1 Univers (ZOFRAN) 4 4-18 tablet by ity of mg tablet 00:00: mouth [place] 00 every 8 Medical (eight) Branch hours as needed for Nausea and Vomiting (N/V). pantoprazol 2020-0 Yes [id number] 40mg Take 1 Univers e 4-18 tablet by ity of (PROTONIX) 00:00: mouth [place] 40 mg EC 00 daily. Medical tablet Branch dicyclomine 2020-0 Yes [id number] 20mg Take 1 [facility] 20 mg 4-18 tablet by ity of tablet 00:00: mouth [place] 00 every 6 Medical (six) Branch hours as needed for Abdominal pain. ondansetron 2020-0 Yes [id number] 4mg Take 1 Univers (ZOFRAN) 4 4-18 tablet by ity of mg tablet 00:00: mouth [place] 00 every 8 Medical (eight) Branch hours as needed for Nausea and Vomiting (N/V). pantoprazol 2020-0 Yes [id number] 40mg Take 1 Univers e 4-18 tablet by ity of (PROTONIX) 00:00: mouth [place] 40 mg EC 00 daily. Medical tablet Branch dicyclomine 2020-0 Yes [id number] 20mg Take 1 [facility] 20 mg 4-18 tablet by ity of tablet 00:00: mouth [place] 00 every 6 Medical (six) Branch hours as needed for Abdominal pain. ondansetron 2020-0 Yes [id number] 4mg Take 1 Univers (ZOFRAN) 4 4-18 tablet by ity of mg tablet 00:00: mouth [place] 00 every 8 Medical (eight) Branch hours as needed for Nausea and Vomiting (N/V). pantoprazol 2020-0 Yes [id number] 40mg Take 1 Univers e 4-18 tablet by ity of (PROTONIX) 00:00: mouth [place] 40 mg EC 00 daily. Medical tablet Branch dicyclomine 2020-0 Yes [id number] 20mg Take 1 [facility] 20 mg 4-18 tablet by ity of tablet 00:00: mouth [place] 00 every 6 Medical (six) Branch hours as needed for Abdominal pain. ondansetron 2020-0 Yes [id number] 4mg Take 1 Univers (ZOFRAN) 4 4-18 tablet by ity of mg tablet 00:00: mouth [place] 00 every 8 Medical (eight) Branch hours as needed for Nausea and Vomiting (N/V). pantoprazol 2020-0 Yes [id number] 40mg Take 1 Univers e 4-18 tablet by ity of (PROTONIX) 00:00: mouth [place] 40 mg EC 00 daily. Medical tablet Branch dicyclomine 2021-0 Yes [id number] 20mg Take 1 [facility] 20 mg 4-18 tablet by ity of tablet 00:00: mouth [place] 00 every 6 Medical (six) Branch hours as needed for Abdominal pain. ondansetron 2020-0 Yes [id number] 4mg Take 1 Univers (ZOFRAN) 4 4-18 tablet by ity of mg tablet 00:00: mouth [place] 00 every 8 Medical (eight) Branch hours as needed for Nausea and Vomiting (N/V). pantoprazol 2020-0 Yes [id number] 40mg Take 1 Univers e 4-18 tablet by ity of (PROTONIX) 00:00: mouth [place] 40 mg EC 00 daily. Medical tablet Branch dicyclomine 2020-0 Yes [id number] 20mg Take 1 [facility] 20 mg 4-18 tablet by ity of tablet 00:00: mouth [place] 00 every 6 Medical (six) Branch hours as needed for Abdominal pain. ondansetron 2020-0 Yes [id number] 4mg Take 1 Univers (ZOFRAN) 4 4-18 tablet by ity of mg tablet 00:00: mouth [place] 00 every 8 Medical (eight) Branch hours as needed for Nausea and Vomiting (N/V). pantoprazol 2020-0 Yes [id number] 40mg Take 1 Univers e 4-18 tablet by ity of (PROTONIX) 00:00: mouth [place] 40 mg EC 00 daily. Medical tablet Branch dicyclomine 2020-0 Yes [id number] 20mg Take 1 [facility] 20 mg 4-18 tablet by ity of tablet 00:00: mouth [place] 00 every 6 Medical (six) Branch hours as needed for Abdominal pain. ondansetron 2020-0 Yes [id number] 4mg Take 1 Univers (ZOFRAN) 4 4-18 tablet by ity of mg tablet 00:00: mouth [place] 00 every 8 Medical (eight) Branch hours as needed for Nausea and Vomiting (N/V). pantoprazol 2020-0 Yes [id number] 40mg Take 1 Univers e 4-18 tablet by ity of (PROTONIX) 00:00: mouth [place] 40 mg EC 00 daily. Medical tablet Branch dicyclomine 2020-0 Yes [id number] 20mg Take 1 [facility] 20 mg 4-18 tablet by ity of tablet 00:00: mouth [place] 00 every 6 Medical (six) Branch hours as needed for Abdominal pain. ondansetron 2020-0 Yes [id number] 4mg Take 1 [facility] (ZOFRAN) 4 4-18 tablet by ity of mg tablet 00:00: mouth [place] 00 every 8 Medical (eight) Branch hours as needed for Nausea and Vomiting (N/V). pantoprazol 2020-0 Yes [id number] 40mg Take 1 Univers e 4-18 tablet by ity of (PROTONIX) 00:00: mouth [place] 40 mg EC 00 daily. Medical tablet Branch dicyclomine 2020-0 Yes [id number] 20mg Take 1 [facility] 20 mg 4-18 tablet by ity of tablet 00:00: mouth [place] 00 every 6 Medical (six) Branch hours as needed for Abdominal pain. ondansetron 2020-0 Yes [id number] 4mg Take 1 Univers (ZOFRAN) 4 4-18 tablet by ity of mg tablet 00:00: mouth [place] 00 every 8 Medical (eight) Branch hours as needed for Nausea and Vomiting (N/V). pantoprazol 2020-0 Yes [id number] 40mg Take 1 Univers e 4-18 tablet by ity of (PROTONIX) 00:00: mouth [place] 40 mg EC 00 daily. Medical tablet Branch dicyclomine 2020-0 Yes [id number] 20mg Take 1 [facility] 20 mg 4-18 tablet by ity of tablet 00:00: mouth [place] 00 every 6 Medical (six) Branch hours as needed for Abdominal pain. ondansetron 2020-0 Yes [id number] 4mg Take 1 Univers (ZOFRAN) 4 4-18 tablet by ity of mg tablet 00:00: mouth [place] 00 every 8 Medical (eight) Branch hours as needed for Nausea and Vomiting (N/V). pantoprazol 2020-0 Yes [id number] 40mg Take 1 Univers e 4-18 tablet by ity of (PROTONIX) 00:00: mouth [place] 40 mg EC 00 daily. Medical tablet Branch dicyclomine 2020-0 Yes [id number] 20mg Take 1 [facility] 20 mg 4-18 tablet by ity of tablet 00:00: mouth [place] 00 every 6 Medical (six) Branch hours as needed for Abdominal pain. ondansetron 2020-0 Yes [id number] 4mg Take 1 Univers (ZOFRAN) 4 4-18 tablet by ity of mg tablet 00:00: mouth [place] 00 every 8 Medical (eight) Branch hours as needed for Nausea and Vomiting (N/V). pantoprazol 2020-0 Yes [id number] 40mg Take 1 Univers e 4-18 tablet by ity of (PROTONIX) 00:00: mouth [place] 40 mg EC 00 daily. Medical tablet Branch dicyclomine 2020-0 Yes [id number] 20mg Take 1 [facility] 20 mg 4-18 tablet by ity of tablet 00:00: mouth [place] 00 every 6 Medical (six) Branch hours as needed for Abdominal pain. ondansetron 2020-0 Yes [id number] 4mg Take 1 [facility] (ZOFRAN) 4 4-18 tablet by ity of mg tablet 00:00: mouth [place] 00 every 8 Medical (eight) Branch hours as needed for Nausea and Vomiting (N/V). pantoprazol 2020-0 Yes [id number] 40mg Take 1 [facility] e 4-18 tablet by ity of (PROTONIX) 00:00: mouth [place] 40 mg EC 00 daily. [facility] tablet Branch dicyclomine 2020-0 Yes [id number] 20mg Take 1 [facility]-18 tablet by [facility] tablet 00:00: mouth [place] 00 every 6 Medical (six) Branch hours as needed for Abdominal pain. ondansetron 2020-0 Yes [id number] 4mg Take 1 [facility] (ZOFRAN) 4 4-18 tablet by [facility] mg tablet 00:00: mouth [place] 00 every 8 Medical (eight) Branch hours as needed for Nausea and Vomiting (N/V). pantoprazol 2020-0 Yes [id number] 40mg Take 1 [facility] e 4-18 tablet by [facility] (PROTONIX) 00:00: mouth [place] 40 mg EC 00 daily. [facility] tablet Branch dicyclomine 2020-0 Yes [id number] 20mg Take 1 [facility] 20 mg 4-18 tablet by [facility] tablet 00:00: mouth [place] 00 every 6 Medical (six) Branch hours as needed for Abdominal pain. ondansetron 2020-0 Yes [id number] 4mg Take 1 [facility] (ZOFRAN) 4 4-18 tablet by [facility] mg tablet 00:00: mouth [place] 00 every 8 Medical (eight) Branch hours as needed for Nausea and Vomiting (N/V). pantoprazol 2020-0 Yes [id number] 40mg Take 1 [facility] e 4-18 tablet by [facility] (PROTONIX) 00:00: mouth [place] 40 mg EC 00 daily. [facility] tablet Branch dicyclomine 2020-0 Yes [id number] 20mg Take 1 [facility] 20 mg 4-18 tablet by [facility] tablet 00:00: mouth [place] 00 every 6 Medical (six) Branch hours as needed for Abdominal pain. ondansetron 2020-0 Yes [id number] 4mg Take 1 [facility] (ZOFRAN) 4 4-18 tablet by [facility] mg tablet 00:00: mouth [place] 00 every 8 Medical (eight) Branch hours as needed for Nausea and Vomiting (N/V). pantoprazol 2020-0 Yes [id number] 40mg Take 1 [facility] e 4-18 tablet by [facility] (PROTONIX) 00:00: mouth [place] 40 mg EC 00 daily. [facility] tablet Branch dicyclomine 2020-0 Yes [id number] 20mg Take 1 [facility] 20 mg 4-18 tablet by [facility] tablet 00:00: mouth [place] 00 every 6 Medical (six) Branch hours as needed for Abdominal pain. ondansetron 2020-0 Yes [id number] 4mg Take 1 [facility] (ZOFRAN) 4 4-18 tablet by [facility] mg tablet 00:00: mouth [place] 00 every 8 Medical (eight) Branch hours as needed for Nausea and Vomiting (N/V). pantoprazol 2020-0 Yes [id number] 40mg Take 1 [facility] e 4-18 tablet by [facility] (PROTONIX) 00:00: mouth [place] 40 mg EC 00 daily. Medical tablet Branch dicyclomine 2020-0 Yes [id number] 20mg Take 1 [facility] 20 mg 4-18 tablet by [facility] tablet 00:00: mouth [place] 00 every 6 Medical (six) Branch hours as needed for Abdominal pain. ondansetron 2020-0 Yes [id number] 4mg Take 1 [facility] (ZOFRAN) 4 4-18 tablet by [facility] mg tablet 00:00: mouth [place] 00 every 8 Medical (eight) Branch hours as needed for Nausea and Vomiting (N/V). pantoprazol 2020-0 Yes [id number] 40mg Take 1 [facility] e 4-18 tablet by [facility] (PROTONIX) 00:00: mouth [place] 40 mg EC 00 daily. [facility] tablet Branch dicyclomine 2020-0 Yes [id number] 20mg Take 1 [facility] 20 mg 4-18 tablet by [facility] tablet 00:00: mouth [place] 00 every 6 Medical (six) Branch hours as needed for Abdominal pain. pantoprazol 2020-0 Yes [id number] 40mg Take 1 [facility] e 4-18 tablet by [facility] (PROTONIX) 00:00: mouth [place] 40 mg EC 00 daily. [facility] tablet Branch dicyclomine 2020-0 Yes [id number] 20mg Take 1 [facility] 20 mg 4-18 tablet by [facility] tablet 00:00: mouth [place] 00 every 6 Medical (six) Branch hours as needed for Abdominal pain. pantoprazol 2020-0 Yes [id number] 40mg Take 1 [facility] e 4-18 tablet by [facility] (PROTONIX) 00:00: mouth [place] 40 mg EC 00 daily. [facility] tablet Branch dicyclomine 2020-0 Yes [id number] 20mg Take 1 [facility] 20 mg 4-18 tablet by [facility] tablet 00:00: mouth [place] 00 every 6 Medical (six) Branch hours as needed for Abdominal pain. pantoprazol 2020-0 Yes [id number] 40mg Take 1 [facility] e 4-18 tablet by [facility] of (PROTONIX) 00:00: mouth [place] 40 mg EC 00 daily. [facility] tablet Branch dicyclomine 2020-0 Yes [id number] 20mg Take 1 [facility] 20 mg 4-18 tablet by [facility] tablet 00:00: mouth [place] 00 every 6 Medical (six) Branch hours as needed for Abdominal pain. pantoprazol 2020-0 Yes [id number] 40mg Take 1 [facility] e 4-18 tablet by [facility] (PROTONIX) 00:00: mouth [place] 40 mg EC 00 daily. [facility] tablet Branch dicyclomine 2020-0 Yes [id number] 20mg Take 1 [facility] 20 mg 4-18 tablet by [facility] tablet 00:00: mouth [place] 00 every 6 Medical (six) Branch hours as needed for Abdominal pain. pantoprazol 2020-0 Yes [id number] 40mg Take 1 [facility] e 4-18 tablet by [facility] (PROTONIX) 00:00: mouth [place] 40 mg EC 00 daily. [facility] tablet Branch dicyclomine 2020-0 Yes [id number] 20mg Take 1 [facility] 20 mg 4-18 tablet by [facility] tablet 00:00: mouth [place] 00 every 6 Medical (six) Branch hours as needed for Abdominal pain. pantoprazol 2020-0 Yes [id number] 40mg Take 1 [facility] e 4-18 tablet by [facility] of (PROTONIX) 00:00: mouth [place] 40 mg EC 00 daily. [facility] tablet Branch dicyclomine 2020-0 Yes [id number] 20mg Take 1 [facility] 20 mg 4-18 tablet by [facility] tablet 00:00: mouth [place] 00 every 6 Medical (six) Branch hours as needed for Abdominal pain. pantoprazol 2020-0 Yes [id number] 40mg Take 1 [facility] e 4-18 tablet by [facility] (PROTONIX) 00:00: mouth [place] 40 mg EC 00 daily. [facility] tablet Branch dicyclomine 2020-0 Yes [id number] 20mg Take 1 [facility] 20 mg 4-18 tablet by [facility] tablet 00:00: mouth [place] 00 every 6 Medical (six) Branch hours as needed for Abdominal pain. pantoprazol 2020-0 Yes [id number] 40mg Take 1 [facility] e 4-18 tablet by [facility] (PROTONIX) 00:00: mouth [place] 40 mg EC 00 daily. Medical tablet Branch dicyclomine 2020-0 Yes [id number] 20mg Take 1 [facility] 20 mg 4-18 tablet by [facility] tablet 00:00: mouth [place] 00 every 6 Medical (six) Branch hours as needed for Abdominal pain. pantoprazol 2020-0 Yes [id number] 40mg Take 1 [facility] e 4-18 tablet by [facility] of (PROTONIX) 00:00: mouth [place] 40 mg EC 00 daily. [facility] tablet Branch dicyclomine 2020-0 Yes [id number] 20mg Take 1 [facility] 20 mg 4-18 tablet by [facility] tablet 00:00: mouth [place] 00 every 6 Medical (six) Branch hours as needed for Abdominal pain. pantoprazol 2020-0 Yes [id number] 40mg Take 1 [facility] e 4-18 tablet by [facility] (PROTONIX) 00:00: mouth [place] 40 mg EC 00 daily. [facility] tablet Branch dicyclomine 2020-0 Yes [id number] 20mg Take 1 [facility] 20 mg 4-18 tablet by [facility] tablet 00:00: mouth [place] 00 every 6 Medical (six) Branch hours as needed for Abdominal pain. pantoprazol 2020-0 Yes [id number] 40mg Take 1 [facility] e 4-18 tablet by [facility] of (PROTONIX) 00:00: mouth [place] 40 mg EC 00 daily. Medical tablet Branch dicyclomine 2020-0 Yes [id number] 20mg Take 1 [facility] 20 mg 4-18 tablet by [facility] of tablet 00:00: mouth [place] 00 every 6 Medical (six) Branch hours as needed for Abdominal pain. pantoprazol 2020-0 Yes [id number] 40mg Take 1 [facility] e 4-18 tablet by [facility] of (PROTONIX) 00:00: mouth [place] 40 mg EC 00 daily. Medical tablet Branch dicyclomine 2020-0 Yes [id number] 20mg Take 1 [facility] 20 mg 4-18 tablet by [facility] tablet 00:00: mouth [place] 00 every 6 Medical (six) Branch hours as needed for Abdominal pain. pantoprazol 2020-0 Yes [id number] 40mg Take 1 [facility] e 4-18 tablet by [facility] (PROTONIX) 00:00: mouth [place] 40 mg EC 00 daily. [facility] tablet Branch dicyclomine 2020-0 Yes [id number] 20mg Take 1 [facility] 20 mg 4-18 tablet by [facility] tablet 00:00: mouth [place] 00 every 6 Medical (six) Branch hours as needed for Abdominal pain. pantoprazol 2020-0 Yes [id number] 40mg Take 1 [facility] e 4-18 tablet by [facility] of (PROTONIX) 00:00: mouth [place] 40 mg EC 00 daily. Medical tablet Branch dicyclomine 2020-0 Yes [id number] 20mg Take 1 [facility] 20 mg 4-18 tablet by [facility] tablet 00:00: mouth [place] 00 every 6 Medical (six) Branch hours as needed for Abdominal pain. pantoprazol 2020-0 Yes [id number] 40mg Take 1 [facility] e 4-18 tablet by [facility] (PROTONIX) 00:00: mouth [place] 40 mg EC 00 daily. [facility] tablet Branch dicyclomine 2020-0 Yes [id number] 20mg Take 1 [facility] 20 mg 4-18 tablet by [facility] tablet 00:00: mouth [place] 00 every 6 Medical (six) Branch hours as needed for Abdominal pain. pantoprazol 2020-0 Yes [id number] 40mg Take 1 [facility] e 4-18 tablet by [facility] (PROTONIX) 00:00: mouth [place] 40 mg EC 00 daily. Medical tablet Branch dicyclomine 2020-0 Yes [id number] 20mg Take 1 [facility] 20 mg 4-18 tablet by [facility] tablet 00:00: mouth [place] 00 every 6 Medical (six) Branch hours as needed for Abdominal pain. pantoprazol 2020-0 Yes [id number] 40mg Take 1 [facility] e 4-18 tablet by [facility] (PROTONIX) 00:00: mouth [place] 40 mg EC 00 daily. Medical tablet Branch dicyclomine 2020-0 Yes [id number] 20mg Take 1 [facility] 20 mg 4-18 tablet by [facility] tablet 00:00: mouth [place] 00 every 6 Medical (six) Branch hours as needed for Abdominal pain. pantoprazol 2020-0 Yes [id number] 40mg Take 1 [facility] e 4-18 tablet by [facility] (PROTONIX) 00:00: mouth [place] 40 mg EC 00 daily. Medical tablet Branch dicyclomine 2020-0 Yes [id number] 20mg Take 1 [facility] 20 mg 4-18 tablet by [facility] tablet 00:00: mouth [place] 00 every 6 Medical (six) Branch hours as needed for Abdominal pain. pantoprazol 2020-0 Yes [id number] 40mg Take 1 [facility] e 4-18 tablet by [facility] of (PROTONIX) 00:00: mouth [place] 40 mg EC 00 daily. Medical tablet Branch dicyclomine 2020-0 Yes [id number] 20mg Take 1 [facility] 20 mg 4-18 tablet by [facility] tablet 00:00: mouth [place] 00 every 6 Medical (six) Branch hours as needed for Abdominal pain. pantoprazol 2020-0 Yes [id number] 40mg Take 1 [facility] e 4-18 tablet by [facility] (PROTONIX) 00:00: mouth [place] 40 mg EC 00 daily. Medical tablet Branch dicyclomine 2020-0 Yes [id number] 20mg Take 1 [facility] 20 mg 4-18 tablet by [facility] tablet 00:00: mouth [place] 00 every 6 Medical (six) Branch hours as needed for Abdominal pain. pantoprazol 2020-0 Yes [id number] 40mg Take 1 [facility] e 4-18 tablet by [facility] (PROTONIX) 00:00: mouth [place] 40 mg EC 00 daily. Medical tablet Branch dicyclomine 2020-0 Yes [id number] 20mg Take 1 [facility] 20 mg 4-18 tablet by [facility] tablet 00:00: mouth [place] 00 every 6 Medical (six) Branch hours as needed for Abdominal pain. pantoprazol 2020-0 Yes [id number] 40mg Take 1 [facility] e 4-18 tablet by [facility] of (PROTONIX) 00:00: mouth [place] 40 mg EC 00 daily. Medical tablet Branch dicyclomine 2020-0 Yes [id number] 20mg Take 1 [facility] 20 mg 4-18 tablet by [facility] tablet 00:00: mouth [place] 00 every 6 Medical (six) Branch hours as needed for Abdominal pain. ondansetron 2020-0 Yes [id number] 4mg Take 1 [facility] (ZOFRAN) 4 4-18 tablet by [facility] of mg tablet 00:00: mouth [place] 00 every 8 Medical (eight) Branch hours as needed for Nausea and Vomiting (N/V). pantoprazol 2020-0 Yes [id number] 40mg Take 1 [facility] e 4-18 tablet by [facility] of (PROTONIX) 00:00: mouth [place] 40 mg EC 00 daily. Medical tablet Branch dicyclomine 2020-0 Yes [id number] 20mg Take 1 [facility] 20 mg 4-18 tablet by [facility] tablet 00:00: mouth [place] 00 every 6 Medical (six) Branch hours as needed for Abdominal pain. ondansetron 2020-0 Yes [id number] 4mg Take 1 [facility] (ZOFRAN) 4 4-18 tablet by [facility] of mg tablet 00:00: mouth [place] 00 every 8 Medical (eight) Branch hours as needed for Nausea and Vomiting (N/V). pantoprazol 2020-0 Yes [id number] 40mg Take 1 [facility] e 4-18 tablet by [facility] of (PROTONIX) 00:00: mouth [place] 40 mg EC 00 daily. Medical tablet Branch dicyclomine 2020-0 Yes [id number] 20mg Take 1 [facility] 20 mg 4-18 tablet by [facility] of tablet 00:00: mouth [place] 00 every 6 Medical (six) Branch hours as needed for Abdominal pain. ondansetron 2020-0 Yes [id number] 4mg Take 1 [facility] (ZOFRAN) 4 4-18 tablet by [facility] of mg tablet 00:00: mouth [place] 00 every 8 Medical (eight) Branch hours as needed for Nausea and Vomiting (N/V). pantoprazol 2020-0 Yes [id number] 40mg Take 1 [facility] e 4-18 tablet by [facility] of (PROTONIX) 00:00: mouth [place] 40 mg EC 00 daily. Medical tablet Branch dicyclomine 2020-0 Yes [id number] 20mg Take 1 [facility] 20 mg 4-18 tablet by [facility] of tablet 00:00: mouth [place] 00 every 6 Medical (six) Branch hours as needed for Abdominal pain. ondansetron 2020-0 Yes [id number] 4mg Take 1 [facility] (ZOFRAN) 4 4-18 tablet by [facility] of mg tablet 00:00: mouth [place] 00 every 8 Medical (eight) Branch hours as needed for Nausea and Vomiting (N/V). pantoprazol 2020-0 Yes [id number] 40mg Take 1 [facility] e 4-18 tablet by [facility] of (PROTONIX) 00:00: mouth [place] 40 mg EC 00 daily. Medical tablet Branch dicyclomine 2020-0 Yes [id number] 20mg Take 1 [facility] 20 mg 4-18 tablet by [facility] of tablet 00:00: mouth [place] 00 every 6 Medical (six) Branch hours as needed for Abdominal pain. ondansetron 2020-0 Yes [id number] 4mg Take 1 [facility] (ZOFRAN) 4 4-18 tablet by [facility] of mg tablet 00:00: mouth [place] 00 every 8 Medical (eight) Branch hours as needed for Nausea and Vomiting (N/V). pantoprazol 2020-0 Yes [id number] 40mg Take 1 [facility] e 4-18 tablet by [facility] of (PROTONIX) 00:00: mouth [place] 40 mg EC 00 daily. Medical tablet Branch dicyclomine 2020-0 Yes [id number] 20mg Take 1 [facility] 20 mg 4-18 tablet by [facility] of tablet 00:00: mouth [place] 00 every 6 Medical (six) Branch hours as needed for Abdominal pain. ondansetron 2020-0 Yes [id number] 4mg Take 1 [facility] (ZOFRAN) 4 4-18 tablet by [facility] of mg tablet 00:00: mouth [place] 00 every 8 Medical (eight) Branch hours as needed for Nausea and Vomiting (N/V). pantoprazol 2020-0 Yes [id number] 40mg Take 1 [facility] e 4-18 tablet by [facility] of (PROTONIX) 00:00: mouth [place] 40 mg EC 00 daily. Medical tablet Branch dicyclomine 2020-0 Yes [id number] 20mg Take 1 [facility] 20 mg 4-18 tablet by [facility] of tablet 00:00: mouth [place] 00 every 6 Medical (six) Branch hours as needed for Abdominal pain. ondansetron 2020-0 Yes [id number] 4mg Take 1 [facility] (ZOFRAN) 4 4-18 tablet by [facility] of mg tablet 00:00: mouth [place] 00 every 8 Medical (eight) Branch hours as needed for Nausea and Vomiting (N/V). pantoprazol 2020-0 Yes [id number] 40mg Take 1 [facility] e 4-18 tablet by [facility] of (PROTONIX) 00:00: mouth [place] 40 mg EC 00 daily. Medical tablet Branch dicyclomine 2020-0 Yes [id number] 20mg Take 1 [facility] 20 mg 4-18 tablet by [facility] of tablet 00:00: mouth [place] 00 every 6 Medical (six) Branch hours as needed for Abdominal pain. ondansetron 2020-0 Yes [id number] 4mg Take 1 [facility] (ZOFRAN) 4 4-18 tablet by [facility] of mg tablet 00:00: mouth [place] 00 every 8 Medical (eight) Branch hours as needed for Nausea and Vomiting (N/V). pantoprazol 2020-0 Yes [id number] 40mg Take 1 [facility] e 4-18 tablet by [facility] of (PROTONIX) 00:00: mouth [place] 40 mg EC 00 daily. Medical tablet Branch dicyclomine 2020-0 Yes [id number] 20mg Take 1 [facility] 20 mg 4-18 tablet by [facility] of tablet 00:00: mouth [place] 00 every 6 Medical (six) Branch hours as needed for Abdominal pain. ondansetron 2020-0 Yes [id number] 4mg Take 1 [facility] (ZOFRAN) 4 4-18 tablet by [facility] of mg tablet 00:00: mouth [place] 00 every 8 Medical (eight) Branch hours as needed for Nausea and Vomiting (N/V). pantoprazol 2020-0 Yes [id number] 40mg Take 1 [facility] e 4-18 tablet by [facility] of (PROTONIX) 00:00: mouth [place] 40 mg EC 00 daily. Medical tablet Branch dicyclomine 2021-0 Yes [id number] 20mg Take 1 [facility] 20 mg 4-18 tablet by [facility] of tablet 00:00: mouth [place] 00 every 6 Medical (six) Branch hours as needed for Abdominal pain. ondansetron 2020-0 Yes [id number] 4mg Take 1 [facility] (ZOFRAN) 4 4-18 tablet by [facility] of mg tablet 00:00: mouth [place] 00 every 8 Medical (eight) Branch hours as needed for Nausea and Vomiting (N/V). pantoprazol 2020-0 Yes [id number] 40mg Take 1 [facility] e 4-18 tablet by [facility] of (PROTONIX) 00:00: mouth [place] 40 mg EC 00 daily. Medical tablet Branch dicyclomine 2020-0 Yes [id number] 20mg Take 1 [facility] 20 mg 4-18 tablet by [facility] of tablet 00:00: mouth [place] 00 every 6 Medical (six) Branch hours as needed for Abdominal pain. ondansetron 2020-0 Yes [id number] 4mg Take 1 [facility] (ZOFRAN) 4 4-18 tablet by [facility] of mg tablet 00:00: mouth [place] 00 every 8 Medical (eight) Branch hours as needed for Nausea and Vomiting (N/V). pantoprazol 2020-0 Yes [id number] 40mg Take 1 [facility] e 4-18 tablet by [facility] of (PROTONIX) 00:00: mouth [place] 40 mg EC 00 daily. Medical tablet Branch dicyclomine 2020-0 Yes [id number] 20mg Take 1 [facility] 20 mg 4-18 tablet by [facility] of tablet 00:00: mouth [place] 00 every 6 Medical (six) Branch hours as needed for Abdominal pain. ondansetron 2020-0 Yes [id number] 4mg Take 1 [facility] (ZOFRAN) 4 4-18 tablet by [facility] of mg tablet 00:00: mouth [place] 00 every 8 Medical (eight) Branch hours as needed for Nausea and Vomiting (N/V). pantoprazol 2020-0 Yes [id number] 40mg Take 1 [facility] e 4-18 tablet by [facility] of (PROTONIX) 00:00: mouth [place] 40 mg EC 00 daily. Medical tablet Branch dicyclomine 2020-0 Yes [id number] 20mg Take 1 [facility] 20 mg 4-18 tablet by [facility] of tablet 00:00: mouth [place] 00 every 6 Medical (six) Branch hours as needed for Abdominal pain. ondansetron 2020-0 Yes [id number] 4mg Take 1 [facility] (ZOFRAN) 4 4-18 tablet by [facility] of mg tablet 00:00: mouth [place] 00 every 8 Medical (eight) Branch hours as needed for Nausea and Vomiting (N/V). pantoprazol 2020-0 Yes [id number] 40mg Take 1 [facility] e 4-18 tablet by [facility] of (PROTONIX) 00:00: mouth [place] 40 mg EC 00 daily. Medical tablet Branch dicyclomine 2020-0 Yes [id number] 20mg Take 1 [facility] 20 mg 4-18 tablet by [facility] tablet 00:00: mouth [place] 00 every 6 Medical (six) Branch hours as needed for Abdominal pain. ondansetron 2020-0 Yes [id number] 4mg Take 1 [facility] (ZOFRAN) 4 4-18 tablet by [facility] of mg tablet 00:00: mouth [place] 00 every 8 Medical (eight) Branch hours as needed for Nausea and Vomiting (N/V). pantoprazol 2020-0 Yes [id number] 40mg Take 1 [facility] e 4-18 tablet by [facility] (PROTONIX) 00:00: mouth [place] 40 mg EC 00 daily. Medical tablet Branch dicyclomine 2020-0 Yes [id number] 20mg Take 1 [facility] 20 mg 4-18 tablet by [facility] tablet 00:00: mouth [place] 00 every 6 Medical (six) Branch hours as needed for Abdominal pain. ondansetron 2020-0 Yes [id number] 4mg Take 1 [facility] (ZOFRAN) 4 4-18 tablet by [facility] of mg tablet 00:00: mouth [place] 00 every 8 Medical (eight) Branch hours as needed for Nausea and Vomiting (N/V). pantoprazol 2020-0 Yes [id number] 40mg Take 1 [facility] e 4-18 tablet by [facility] of (PROTONIX) 00:00: mouth [place] 40 mg EC 00 daily. Medical tablet Branch dicyclomine 2020-0 Yes [id number] 20mg Take 1 [facility] 20 mg 4-18 tablet by [facility] of tablet 00:00: mouth [place] 00 every 6 Medical (six) Branch hours as needed for Abdominal pain. ondansetron 2020-0 Yes [id number] 4mg Take 1 [facility] (ZOFRAN) 4 4-18 tablet by [facility] of mg tablet 00:00: mouth [place] 00 every 8 Medical (eight) Branch hours as needed for Nausea and Vomiting (N/V). pantoprazol 2020-0 Yes [id number] 40mg Take 1 [facility] e 4-18 tablet by [facility] of (PROTONIX) 00:00: mouth [place] 40 mg EC 00 daily. Medical tablet Branch dicyclomine 2020-0 Yes [id number] 20mg Take 1 [facility] 20 mg 4-18 tablet by [facility] tablet 00:00: mouth [place] 00 every 6 Medical (six) Branch hours as needed for Abdominal pain. ondansetron 2020-0 Yes [id number] 4mg Take 1 [facility] (ZOFRAN) 4 4-18 tablet by [facility] of mg tablet 00:00: mouth [place] 00 every 8 Medical (eight) Branch hours as needed for Nausea and Vomiting (N/V). pantoprazol 2020-0 Yes [id number] 40mg Take 1 [facility] e 4-18 tablet by [facility] of (PROTONIX) 00:00: mouth [place] 40 mg EC 00 daily. Medical tablet Branch dicyclomine 2020-0 Yes [id number] 20mg Take 1 [facility] 20 mg 4-18 tablet by [facility] of tablet 00:00: mouth [place] 00 every 6 Medical (six) Branch hours as needed for Abdominal pain. ondansetron 2020-0 Yes [id number] 4mg Take 1 [facility] (ZOFRAN) 4 4-18 tablet by [facility] of mg tablet 00:00: mouth [place] 00 every 8 Medical (eight) Branch hours as needed for Nausea and Vomiting (N/V). pantoprazol 2020-0 Yes [id number] 40mg Take 1 [facility] e 4-18 tablet by [facility] of (PROTONIX) 00:00: mouth [place] 40 mg EC 00 daily. Medical tablet Branch dicyclomine 2020-0 Yes [id number] 20mg Take 1 [facility] 20 mg 4-18 tablet by [facility] of tablet 00:00: mouth [place] 00 every 6 Medical (six) Branch hours as needed for Abdominal pain. ondansetron 2020-0 Yes [id number] 4mg Take 1 [facility] (ZOFRAN) 4 4-18 tablet by [facility] of mg tablet 00:00: mouth [place] 00 every 8 Medical (eight) Branch hours as needed for Nausea and Vomiting (N/V). pantoprazol 2020-0 Yes [id number] 40mg Take 1 [facility] e 4-18 tablet by [facility] of (PROTONIX) 00:00: mouth [place] 40 mg EC 00 daily. Medical tablet Branch dicyclomine 2020-0 Yes [id number] 20mg Take 1 [facility] 20 mg 4-18 tablet by [facility] of tablet 00:00: mouth [place] 00 every 6 Medical (six) Branch hours as needed for Abdominal pain. ondansetron 2020-0 Yes [id number] 4mg Take 1 [facility] (ZOFRAN) 4 4-18 tablet by [facility] of mg tablet 00:00: mouth [place] 00 every 8 Medical (eight) Branch hours as needed for Nausea and Vomiting (N/V). pantoprazol 2020-0 Yes [id number] 40mg Take 1 [facility] e 4-18 tablet by [facility] of (PROTONIX) 00:00: mouth [place] 40 mg EC 00 daily. Medical tablet Branch dicyclomine 2020-0 Yes [id number] 20mg Take 1 [facility] 20 mg 4-18 tablet by [facility] of tablet 00:00: mouth [place] 00 every 6 Medical (six) Branch hours as needed for Abdominal pain. ondansetron 2020-0 Yes [id number] 4mg Take 1 [facility] (ZOFRAN) 4 4-18 tablet by [facility] of mg tablet 00:00: mouth [place] 00 every 8 Medical (eight) Branch hours as needed for Nausea and Vomiting (N/V). pantoprazol 2020-0 Yes [id number] 40mg Take 1 [facility] e 4-18 tablet by [facility] of (PROTONIX) 00:00: mouth [place] 40 mg EC 00 daily. Medical tablet Branch dicyclomine 2020-0 Yes [id number] 20mg Take 1 [facility] 20 mg 4-18 tablet by [facility] of tablet 00:00: mouth [place] 00 every 6 Medical (six) Branch hours as needed for Abdominal pain. ondansetron 2020-0 Yes [id number] 4mg Take 1 [facility] (ZOFRAN) 4 4-18 tablet by [facility] of mg tablet 00:00: mouth [place] 00 every 8 Medical (eight) Branch hours as needed for Nausea and Vomiting (N/V). pantoprazol 2020-0 Yes [id number] 40mg Take 1 [facility] e 4-18 tablet by [facility] of (PROTONIX) 00:00: mouth [place] 40 mg EC 00 daily. Medical tablet Branch dicyclomine Yes [id number] 20mg Take 1 [facility] 20 mg 4-18 tablet by [facility] of tablet 00:00: mouth [place] 00 every 6 Medical (six) Branch hours as needed for Abdominal pain. ondansetron Yes [id number] 4mg Take 1 [facility] (ZOFRAN) 4 4-18 tablet by [facility] of mg tablet 00:00: mouth [place] 00 every 8 Medical (eight) Branch hours as needed for Nausea and Vomiting (N/V). ondansetron 2022- No [id number] 4mg Take 1 [facility] (ZOFRAN) 4 4-18 06-27 tablet by [facility] of mg tablet 00:00: 00:00 mouth [place] 00 :00 every 8 Medical (eight) Branch hours as needed for Nausea and Vomiting (N/V). ondansetron 2022- No [id number] 4mg Take 1 [facility] (ZOFRAN) 4 4-18 [...] pain acetaminoph 2019- Yes 4647 1{tbl} Take 1 [facility] travis en-codeine 8-08 tablet by [facility] of (TYLENOL-CO 00:00: mouth [place] DEINE #3) 00 every 4 Medical 300-30 mg (four) Branch tablet hours as needed for Pain (scale 1-3). Indication s: acute pain acetaminoph 2019- Yes 4647 1{tbl} Take 1 [...] 2020-0 Yes 4647 1{tbl} Take 1 Un trvais en-codeine 8-08 tablet by [facility] of (TYLENOL-CO [...] 1-3). Indication s: acute pain acetaminoph 2020-0 2023- No 4647 1{tbl} Take 1 U nivers en-codeine 8-08 10-05 tablet by [facility] of (TYLENOL-CO 00:00: 00:00 [facility] [place] DEINE #3) 00 :00 every 4 Medical 300-30 mg (four) Branch tablet hours as needed for Pain (scale 1-3). Indication s: acute pain acetaminoph 2020-0 2023- No 4647 1{tbl} Take 1 U nivers [...] 00 DAILY UNTIL FINISHED. nystatin 2019-0 Yes [id number] Apply to [facility] 100,000 2-05 affected [facility] of unit/gram 00:00: area(s) 3 [place] as ointment 00 (three) Medical times Branch daily. nystatin 2019-0 Yes [id number] Apply to [facility] 100,000 2-05 affected [facility] of unit/gram 00:00: area(s) 3 [place] as ointment 00 (three) Medical times Branch daily. nystatin 2020-0 Yes [id number] Apply to [facility] 100,000 2-05 affected [facility] of unit/gram 00:00: area(s) 3 [place] as ointment 00 (three) Medical times Branch daily. nystatin 2020-0 Yes [id number] Apply to [facility] 100,000 2-05 affected [facility] of unit/gram 00:00: area(s) 3 [place] as ointment 00 (three) Medical times Branch daily. nystatin 2020-0 Yes [id number] Apply to [facility] 100,000 2-05 affected [facility] of unit/gram 00:00: area(s) 3 [place] as ointment 00 (three) Medical times Branch daily. nystatin 2020-0 Yes [id number] Apply to [facility] 100,000 2-05 affected [facility] of unit/gram 00:00: area(s) 3 [place] as ointment 00 (three) Medical times Branch daily. nystatin 2020-0 Yes [id number] Apply to [facility] 100,000 2-05 affected [facility] of unit/gram 00:00: area(s) 3 [place] as ointment 00 (three) Medical times Branch daily. nystatin 2020-0 Yes [id number] Apply to [facility] 100,000 2-05 affected [facility] of unit/gram 00:00: area(s) 3 [place] as ointment 00 (three) Medical times Branch daily. nystatin 2020-0 Yes [id number] Apply to [facility] 100,000 2-05 affected [facility] of unit/gram 00:00: area(s) 3 [place] as ointment 00 (three) Medical times Branch daily. nystatin 2020-0 Yes [id number] Apply to [facility] 100,000 2-05 affected [facility] of unit/gram 00:00: area(s) 3 [facility] as ointment 00 (three) Medical times Branch daily. nystatin 2020-0 Yes [id number] Apply to [facility] 100,000 2-05 affected ity of unit/gram 00:00: area(s) 3 [facility] as ointment 00 (three) Medical times Branch daily. nystatin 2020-0 Yes [id number] Apply to [facility] 100,000 2-05 affected ity of unit/gram 00:00: area(s) 3 [facility] as ointment 00 (three) Medical times [facility] daily. nystatin 2020-0 Yes [id number] Apply to [facility] 100,000 2-05 affected ity of unit/gram 00:00: area(s) 3 [facility] as ointment 00 (three) Medical times [facility] daily. nystatin 2020-0 Yes [id number] Apply to [facility] 100,000 2-05 affected ity of unit/gram 00:00: area(s) 3 [facility] as ointment 00 (three) Medical times [facility] daily. nystatin 2020-0 Yes [id number] Apply to [facility] 100,000 2-05 affected ity of unit/gram 00:00: area(s) 3 [facility] as ointment 00 (three) Medical times [facility] daily. nystatin 2020-0 Yes [id number] Apply to [facility] 100,000 2-05 affected ity of unit/gram 00:00: area(s) 3 [facility] as ointment 00 (three) Medical times [facility] daily. nystatin 2020-0 Yes [id number] Apply to [facility] 100,000 2-05 affected ity of unit/gram 00:00: area(s) 3 [facility] as ointment 00 (three) Medical times [facility] daily. nystatin 2020-0 Yes [id number] Apply to [facility] 100,000 2-05 affected ity of unit/gram 00:00: area(s) 3 [facility] as ointment 00 (three) Medical times [facility] daily. nystatin 2020-0 Yes [id number] Apply to [facility] 100,000 2-05 affected ity of unit/gram 00:00: area(s) 3 [facility] as ointment 00 (three) Medical times [facility] daily. nystatin 2020-0 Yes [id number] Apply to [facility] 100,000 2-05 affected ity of unit/gram 00:00: area(s) 3 [facility] as ointment 00 (three) Medical times [facility] daily. nystatin 2020-0 Yes [id number] Apply to [facility] 100,000 2-05 affected ity of unit/gram 00:00: area(s) 3 [facility] as ointment 00 (three) Medical times [facility] daily. nystatin 2020-0 Yes [id number] Apply to [facility] 100,000 2-05 affected ity of unit/gram 00:00: area(s) 3 [facility] as ointment 00 (three) Medical times [facility] daily. nystatin 2020-0 Yes [id number] Apply to [facility] 100,000 2-05 affected ity of unit/gram 00:00: area(s) 3 [facility] as ointment 00 (three) Medical times [facility] daily. nystatin 2020-0 Yes [id number] Apply to [facility] 100,000 2-05 affected ity of unit/gram 00:00: area(s) 3 [facility] as ointment 00 (three) Medical times [facility] daily. nystatin 2020-0 Yes [id number] Apply to [facility] 100,000 2-05 affected ity of unit/gram 00:00: area(s) 3 [facility] as ointment 00 (three) Medical times [facility] daily. nystatin 2020-0 Yes [id number] Apply to [facility] 100,000 2-05 affected ity of unit/gram 00:00: area(s) 3 [facility] as ointment 00 (three) Medical times [facility] daily. nystatin 2020-0 Yes [id number] Apply to [facility] 100,000 2-05 affected ity of unit/gram 00:00: area(s) 3 [facility] as ointment 00 (three) Medical times [facility] daily. nystatin 2020-0 Yes [id number] Apply to [facility] 100,000 2-05 affected ity of unit/gram 00:00: area(s) 3 [facility] as ointment 00 (three) Medical times [facility] daily. nystatin 2020-0 Yes [id number] Apply to [facility] 100,000 2-05 affected ity of unit/gram 00:00: area(s) 3 [facility] as ointment 00 (three) Medical times [facility] daily. nystatin 2020-0 Yes [id number] Apply to [facility] 100,000 2-05 affected ity of unit/gram 00:00: area(s) 3 [facility] as ointment 00 (three) Medical times [facility] daily. nystatin 2020-0 Yes [id number] Apply to [facility] 100,000 2-05 affected ity of unit/gram 00:00: area(s) 3 [facility] as ointment 00 (three) Medical times [facility] daily. nystatin 2020-0 Yes [id number] Apply to [facility] 100,000 2-05 affected ity of unit/gram 00:00: area(s) 3 [facility] as ointment 00 (three) Medical times [facility] daily. nystatin 2020-0 Yes [id number] Apply to [facility] 100,000 2-05 affected ity of unit/gram 00:00: area(s) 3 [facility] as ointment 00 (three) Medical times [facility] daily. nystatin 2020-0 Yes [id number] Apply to [facility] 100,000 2-05 affected ity of unit/gram 00:00: area(s) 3 [facility] as ointment 00 (three) Medical times [facility] daily. nystatin 2020-0 Yes [id number] Apply to [facility] 100,000 2-05 affected ity of unit/gram 00:00: area(s) 3 [facility] as ointment 00 (three) Medical times [facility] daily. nystatin 2020-0 Yes [id number] Apply to [facility] 100,000 2-05 affected ity of unit/gram 00:00: area(s) 3 [facility] as ointment 00 (three) Medical times [facility] daily. nystatin 2020-0 Yes [id number] Apply to [facility] 100,000 2-05 affected ity of unit/gram 00:00: area(s) 3 [facility]ay as ointment 00 (three) Medical times [facility] daily. nystatin 2020-0 Yes [id number] Apply to [facility] 100,000 2-05 affected ity of unit/gram 00:00: area(s) 3 [facility]ay as ointment 00 (three) Medical times [facility] daily. nystatin 2020-0 Yes [id number] Apply to [facility] 100,000 2-05 affected ity of unit/gram 00:00: area(s) 3 [facility]ay as ointment 00 (three) Medical times [facility] daily. nystatin 2020-0 Yes [id number] Apply to [facility] 100,000 2-05 affected ity of unit/gram 00:00: area(s) 3 [facility]ay as ointment 00 (three) Medical times [facility] daily. nystatin 2020-0 Yes [id number] Apply to [facility] 100,000 2-05 affected ity of unit/gram 00:00: area(s) 3 [facility] as ointment 00 (three) Medical times [facility] daily. nystatin 2020-0 Yes [id number] Apply to [facility] 100,000 2-05 affected ity of unit/gram 00:00: area(s) 3 [facility]ay as ointment 00 (three) Medical times [facility] daily. nystatin 2020-0 Yes [id number] Apply to [facility] 100,000 2-05 affected ity of unit/gram 00:00: area(s) 3 [facility] as ointment 00 (three) Medical times [facility] daily. nystatin 2020-0 Yes [id number] Apply to [facility] 100,000 2-05 affected ity of unit/gram 00:00: area(s) 3 [facility] as ointment 00 (three) Medical times [facility] daily. nystatin 2020-0 Yes [id number] Apply to [facility] 100,000 2-05 affected ity of unit/gram 00:00: area(s) 3 [facility] as ointment 00 (three) Medical times [facility] daily. nystatin 2020-0 Yes [id number] Apply to [facility] 100,000 2-05 affected ity of unit/gram 00:00: area(s) 3 [facility] as ointment 00 (three) Medical times [facility] daily. nystatin 2020-0 Yes [id number] Apply to [facility] 100,000 2-05 affected ity of unit/gram 00:00: area(s) 3 [facility] as ointment 00 (three) Medical times [facility] daily. nystatin 2020-0 Yes [id number] Apply to [facility] 100,000 2-05 affected ity of unit/gram 00:00: area(s) 3 [facility] as ointment 00 (three) Medical times [facility] daily. nystatin 2020-0 Yes [id number] Apply to [facility] 100,000 2-05 affected ity of unit/gram 00:00: area(s) 3 [facility] as ointment 00 (three) Medical times [facility] daily. nystatin 2020-0 Yes [id number] Apply to [facility] 100,000 2-05 affected ity of unit/gram 00:00: area(s) 3 [facility] as ointment 00 (three) Medical times [facility] daily. nystatin 2020-0 Yes [id number] Apply to [facility] 100,000 2-05 affected ity of unit/gram 00:00: area(s) 3 [facility] as ointment 00 (three) Medical times [facility] daily. nystatin 2020-0 Yes [id number] Apply to [facility] 100,000 2-05 affected ity of unit/gram 00:00: area(s) 3 [facility] as ointment 00 (three) Medical times [facility] daily. nystatin 2020-0 Yes [id number] Apply to [facility] 100,000 2-05 affected ity of unit/gram 00:00: area(s) 3 [facility] as ointment 00 (three) Medical times [facility] daily. nystatin 2020-0 Yes [id number] Apply to [facility] 100,000 2-05 affected ity of unit/gram 00:00: area(s) 3 [facility] as ointment 00 (three) Medical times Branch daily. nystatin 2020-0 Yes [id number] Apply to [facility] 100,000 2-05 affected ity of unit/gram 00:00: area(s) 3 [facility] as ointment 00 (three) Medical times [facility] daily. nystatin 2020-0 Yes [id number] Apply to [facility] 100,000 2-05 affected ity of unit/gram 00:00: area(s) 3 [facility] as ointment 00 (three) Medical times [facility] daily. nystatin 2020-0 Yes [id number] Apply to [facility] 100,000 2-05 affected ity of unit/gram 00:00: area(s) 3 [facility] as ointment 00 (three) Medical times [facility] daily. nystatin 2020-0 Yes [id number] Apply to [facility] 100,000 2-05 affected ity of unit/gram 00:00: area(s) 3 [facility] as ointment 00 (three) Medical times [facility] daily. nystatin 2020-0 Yes [id number] Apply to [facility] 100,000 2-05 affected ity of unit/gram 00:00: area(s) 3 [facility] as ointment 00 (three) Medical times [facility] daily. nystatin 2020-0 Yes [id number] Apply to [facility] 100,000 2-05 affected ity of unit/gram 00:00: area(s) 3 [facility] as ointment 00 (three) Medical times [facility] daily. nystatin 2020-0 Yes [id number] Apply to [facility] 100,000 2-05 affected ity of unit/gram 00:00: area(s) 3 [facility] as ointment 00 (three) Medical times Branch daily. nystatin 2020-0 Yes [id number] Apply to [facility] 100,000 2-05 affected ity of unit/gram 00:00: area(s) 3 [facility]ay as ointment 00 (three) Medical times [facility] daily. nystatin 2020-0 Yes [id number] Apply to [facility] 100,000 2-05 affected ity of unit/gram 00:00: area(s) 3 [facility] as ointment 00 (three) Medical times [facility] daily. nystatin 2020-0 Yes [id number] Apply to [facility] 100,000 2-05 affected ity of unit/gram 00:00: area(s) 3 [facility] as ointment 00 (three) Medical times Branch daily. nystatin 2020-0 Yes [id number] Apply to [facility] 100,000 2-05 affected ity of unit/gram 00:00: area(s) 3 [facility] as ointment 00 (three) Medical times Branch daily. nystatin 2020-0 Yes [id number] Apply to [facility] 100,000 2-05 affected ity of unit/gram 00:00: area(s) 3 [facility]ay as ointment 00 (three) Medical times [facility] daily. nystatin 2020-0 Yes [id number] Apply to [facility] 100,000 2-05 affected ity of unit/gram 00:00: area(s) 3 [facility]ay as ointment 00 (three) Medical times Branch daily. nystatin 2020-0 Yes [id number] Apply to [facility] 100,000 2-05 affected ity of unit/gram 00:00: area(s) 3 [facility]ay as ointment 00 (three) Medical times Branch daily. nystatin 2020-0 Yes [id number] Apply to [facility] 100,000 2-05 affected ity [...] ans Tablet Tablet 00 DIRECTED. medroxyPROG Yes [id number] 150mg [facility] ESTERone 5-14 ity of (DEPO-PROVE 18:30: [place] [facility]) 00 [facility] injection [facility] 150 mg medroxyPROG Yes [id number] 150mg [facility] ESTERone 5-14 ity of (DEPO-PROVE 18:30: [place] [facility]) 00 [facility] injection [facility] 150 mg medroxyPROG 2019-0 Yes [id number] 150mg [facility] ESTERone 5-14 ity of (DEPO-PROVE 18:30: [place] [facility]) 00 [facility] injection [facility] 150 mg medroxyPROG 2019-0 Yes [id number] 150mg [facility] ESTERone 5-14 ity of (DEPO-PROVE 18:30: [place] [facility]) 00 [facility] injection [facility] 150 mg medroxyPROG 2019-0 Yes [id number] 150mg [facility] ESTERone 5-14 ity of (DEPO-PROVE 18:30: [place] [facility]) 00 [facility] injection [facility] 150 mg medroxyPROG 2019-0 Yes [id number] 150mg [facility] ESTERone 5-14 ity of (DEPO-PROVE 18:30: [place] [facility]) 00 [facility] injection [facility] 150 mg medroxyPROG 2019-0 Yes [id number] 150mg [facility] ESTERone 5-14 ity of (DEPO-PROVE 18:30: [place] [facility]) 00 [facility] injection [facility] 150 mg medroxyPROG 2019-0 Yes [id number] 150mg [facility] ESTERone 5-14 ity of (DEPO-PROVE 18:30: [place] [facility]) 00 [facility] injection [facility] 150 mg medroxyPROG 2019-0 Yes [id number] 150mg [facility] ESTERone 5-14 ity of (DEPO-PROVE 18:30: [place] [facility]) 00 [facility] injection [facility] 150 mg medroxyPROG 2019-0 Yes [id number] 150mg [facility] ESTERone 5-14 ity of (DEPO-PROVE 18:30: [place] [facility]) 00 Medical injection [facility] 150 mg medroxyPROG 2019-0 Yes [id number] 150mg [facility] ESTERone 5-14 ity of (DEPO-PROVE 18:30: [place] [facility]) 00 [facility] injection [facility] 150 mg medroxyPROG 2019-0 Yes [id number] 150mg [facility] ESTERone 5-14 ity of (DEPO-PROVE 18:30: [place] [facility]) 00 [facility] injection [facility] 150 mg medroxyPROG 2019-0 Yes [id number] 150mg [facility] ESTERone 5-14 ity of (DEPO-PROVE 18:30: [place] [facility]) 00 Medical injection [facility] 150 mg medroxyPROG 2019-0 Yes [id number] 150mg [facility] ESTERone 5-14 ity of (DEPO-PROVE 18:30: [place] [facility]) 00 Medical injection [facility] 150 mg medroxyPROG 2019-0 Yes [id number] 150mg [facility] ESTERone 5-14 ity of (DEPO-PROVE 18:30: [place] [facility]) 00 Medical injection [facility] 150 mg medroxyPROG 2019-0 Yes [id number] 150mg [facility] ESTERone 5-14 ity of (DEPO-PROVE 18:30: [place] [facility]) 00 Medical injection [facility] 150 mg medroxyPROG 2019-0 Yes [id number] 150mg [facility] ESTERone 5-14 ity of (DEPO-PROVE 18:30: [place] [facility]) 00 Medical injection [facility] 150 mg medroxyPROG 2019-0 Yes [id number] 150mg [facility] ESTERone 5-14 ity of (DEPO-PROVE 18:30: [place] [facility]) 00 Medical injection [facility] 150 mg medroxyPROG 2019-0 Yes [id number] 150mg [facility] ESTERone 5-14 ity of (DEPO-PROVE 18:30: [place] [facility]) 00 Medical injection [facility] 150 mg medroxyPROG 2019-0 Yes [id number] 150mg [facility] ESTERone 5-14 ity of (DEPO-PROVE 18:30: [place] [facility]) 00 Medical injection [facility] 150 mg medroxyPROG 2019-0 Yes [id number] 150mg [facility] ESTERone 5-14 ity of (DEPO-PROVE 18:30: [place] [facility]) 00 Medical injection [facility] 150 mg medroxyPROG 2019-0 Yes [id number] 150mg [facility] ESTERone 5-14 ity of (DEPO-PROVE 18:30: [place] [facility]) 00 Medical injection [facility] 150 mg medroxyPROG 2019-0 Yes [id number] 150mg [facility] ESTERone 5-14 ity of (DEPO-PROVE 18:30: [place] [facility]) 00 Medical injection [facility] 150 mg medroxyPROG 2019-0 Yes [id number] 150mg [facility] ESTERone 5-14 ity of (DEPO-PROVE 18:30: [place] [facility]) 00 Medical injection [facility] 150 mg medroxyPROG 2019-0 Yes [id number] 150mg [facility] ESTERone 5-14 ity of (DEPO-PROVE 18:30: [place] [facility]) 00 Medical injection [facility] 150 mg medroxyPROG 2019-0 Yes [id number] 150mg [facility] ESTERone 5-14 ity of (DEPO-PROVE 18:30: [place] [facility]) 00 Medical injection [facility] 150 mg medroxyPROG 2019-0 Yes [id number] 150mg [facility] ESTERone 5-14 ity of (DEPO-PROVE 18:30: [place] [facility]) 00 Medical injection [facility] 150 mg medroxyPROG 2019-0 Yes [id number] 150mg [facility] ESTERone 5-14 ity of (DEPO-PROVE 18:30: [place] [facility]) 00 Medical injection [facility] 150 mg medroxyPROG 2019-0 Yes [id number] 150mg [facility] ESTERone 5-14 ity of (DEPO-PROVE 18:30: [place] [facility]) 00 Medical injection [facility] 150 mg medroxyPROG 2019-0 Yes [id number] 150mg [facility] ESTERone 5-14 ity of (DEPO-PROVE 18:30: [place] [facility]) 00 Medical injection [facility] 150 mg medroxyPROG 2019-0 Yes [id number] 150mg [facility] ESTERone 5-14 ity of (DEPO-PROVE 18:30: [place] [facility]) 00 Medical injection [facility] 150 mg medroxyPROG 2019-0 Yes [id number] 150mg [facility] ESTERone 5-14 ity of (DEPO-PROVE 18:30: [place] [facility]) 00 Medical injection [facility] 150 mg medroxyPROG 2019-0 Yes [id number] 150mg [facility] ESTERone 5-14 ity of (DEPO-PROVE 18:30: [place] [facility]) 00 Medical injection [facility] 150 mg medroxyPROG 2019-0 Yes [id number] 150mg [facility] ESTERone 5-14 ity of (DEPO-PROVE 18:30: [place] [facility]) 00 Medical injection [facility] 150 mg medroxyPROG 2019-0 Yes [id number] 150mg [facility] ESTERone 5-14 ity of (DEPO-PROVE 18:30: [place] [facility]) 00 Medical injection [facility] 150 mg medroxyPROG 2019-0 Yes [id number] 150mg [facility] ESTERone 5-14 ity of (DEPO-PROVE 18:30: [place] [facility]) 00 Medical injection [facility] 150 mg medroxyPROG 2019-0 Yes [id number] 150mg [facility] ESTERone 5-14 ity of (DEPO-PROVE 18:30: [place] [facility]) 00 Medical injection [facility] 150 mg medroxyPROG 2019-0 Yes [id number] 150mg [facility] ESTERone 5-14 ity of (DEPO-PROVE 18:30: [place] [facility]) 00 Medical injection [facility] 150 mg medroxyPROG 2019-0 Yes [id number] 150mg [facility] ESTERone 5-14 ity of (DEPO-PROVE 18:30: [place] [facility]) 00 Medical injection [facility] 150 mg medroxyPROG 2019-0 Yes [id number] 150mg [facility] ESTERone 5-14 ity of (DEPO-PROVE 18:30: [place] [facility]) 00 Medical injection [facility] 150 mg medroxyPROG 2019-0 Yes [id number] 150mg [facility] ESTERone 5-14 ity of (DEPO-PROVE 18:30: [place] [facility]) 00 Medical injection [facility] 150 mg medroxyPROG 2019-0 Yes [id number] 150mg [facility] ESTERone 5-14 ity of (DEPO-PROVE 18:30: [place] [facility]) 00 Medical injection [facility] 150 mg medroxyPROG 2019-0 Yes [id number] 150mg [facility] ESTERone 5-14 ity of (DEPO-PROVE 18:30: [place] [facility]) 00 [facility] injection [facility] 150 mg medroxyPROG 2019-0 Yes [id number] 150mg [facility] ESTERone 5-14 ity of (DEPO-PROVE 18:30: [place] [facility]) 00 Medical injection [facility] 150 mg medroxyPROG 2019-0 Yes [id number] 150mg [facility] ESTERone 5-14 ity of (DEPO-PROVE 18:30: [place] [facility]) 00 Medical injection [facility] 150 mg medroxyPROG 2019-0 Yes [id number] 150mg [facility] ESTERone 5-14 ity of (DEPO-PROVE 18:30: [place] [facility]) 00 Medical injection [facility] 150 mg medroxyPROG 2019-0 Yes [id number] 150mg [facility] ESTERone 5-14 ity of (DEPO-PROVE 18:30: [place] [facility]) 00 Medical injection [facility] 150 mg medroxyPROG 2019-0 Yes [id number] 150mg [facility] ESTERone 5-14 ity of (DEPO-PROVE 18:30: [place] [facility]) 00 Medical injection [facility] 150 mg medroxyPROG 2019-0 Yes [id number] 150mg [facility] ESTERone 5-14 ity of (DEPO-PROVE 18:30: [place] [facility]) 00 Medical injection [facility] 150 mg medroxyPROG 2019-0 Yes [id number] 150mg [facility] ESTERone 5-14 ity of (DEPO-PROVE 18:30: [place] [facility]) 00 Medical injection [facility] 150 mg medroxyPROG 2019-0 Yes [id number] 150mg [facility] ESTERone 5-14 ity of (DEPO-PROVE 18:30: [place] [facility]) 00 Medical injection [facility] 150 mg medroxyPROG 2019-0 Yes [id number] 150mg [facility] ESTERone 5-14 ity of (DEPO-PROVE 18:30: [place] [facility]) 00 Medical injection [facility] 150 mg medroxyPROG 2019-0 Yes [id number] 150mg [facility] ESTERone 5-14 ity of (DEPO-PROVE 18:30: [place] [facility]) 00 Medical injection [facility] 150 mg medroxyPROG 2019-0 Yes [id number] 150mg [facility] ESTERone 5-14 ity of (DEPO-PROVE 18:30: [place] [facility]) 00 Medical injection [facility] 150 mg medroxyPROG 2019-0 Yes [id number] 150mg [facility] ESTERone 5-14 ity of (DEPO-PROVE 18:30: [place] [facility]) 00 Medical injection [facility] 150 mg medroxyPROG 2019-0 Yes [id number] 150mg [facility] ESTERone 5-14 ity of (DEPO-PROVE 18:30: [place] [facility]) 00 Medical injection [facility] 150 mg medroxyPROG 2019-0 Yes [id number] 150mg [facility] ESTERone 5-14 ity of (DEPO-PROVE 18:30: [place] [facility]) 00 Medical injection Branch 150 mg medroxyPROG 2019-0 Yes [id number] 150mg [facility] ESTERone 5-14 ity of (DEPO-PROVE 18:30: [place] [facility]) 00 Medical injection [facility] 150 mg medroxyPROG 2019-0 Yes [id number] 150mg [facility] ESTERone 5-14 ity of (DEPO-PROVE 18:30: [place] [facility]) 00 Medical injection Branch 150 mg medroxyPROG 2019-0 Yes [id number] 150mg [facility] ESTERone 5-14 ity of (DEPO-PROVE 18:30: [place] [facility]) 00 Medical injection Branch 150 mg medroxyPROG 2019-0 Yes [id number] 150mg [facility] ESTERone 5-14 ity of (DEPO-PROVE 18:30: [place] [facility]) 00 Medical injection Branch 150 mg medroxyPROG 2019-0 Yes [id number] 150mg [facility] ESTERone 5-14 ity of (DEPO-PROVE 18:30: [place] [facility]) 00 Medical injection Branch 150 mg medroxyPROG 2019-0 Yes [id number] 150mg [facility] ESTERone 5-14 ity of (DEPO-PROVE 18:30: [place] [facility]) 00 Medical injection Branch 150 mg medroxyPROG 2019-0 Yes [id number] 150mg [facility] ESTERone 5-14 ity of (DEPO-PROVE 18:30: [place] [facility]) 00 Medical injection Branch 150 mg medroxyPROG 2019-0 Yes [id number] 150mg [facility] ESTERone 5-14 ity of (DEPO-PROVE 18:30: [place] [facility]) 00 Medical injection Branch 150 mg medroxyPROG 2019-0 Yes [id number] 150mg [facility] ESTERone 5-14 ity of (DEPO-PROVE 18:30: [place] [facility]) 00 Medical injection Branch 150 mg medroxyPROG 2019-0 Yes [id number] 150mg [facility] ESTERone 5-14 ity of (DEPO-PROVE 18:30: [place] [facility]) 00 Medical injection Branch 150 mg medroxyPROG 2019-0 Yes [id number] 150mg [facility] ESTERone 5-14 ity of (DEPO-PROVE 18:30: [place] [facility]) 00 Medical injection Branch 150 mg medroxyPROG 2019-0 Yes [id number] 150mg [facility] ESTERone 5-14 ity of (DEPO-PROVE 18:30: [place] [facility]) 00 Medical injection Branch 150 mg Keppra 500 Keppra 500 2018-0 Yes M.D. U T MG Oral MG Oral 1-02 [facility] Tablet Tablet 00:00: ans 00 Immunizations Ordered Immunization Filled Date Status Comments Sour ce Name Immunization Name SARS-COV-2 COVID-19 2021-08-06 Completed Unive rsity of PFIZER VACCINE 00:00:00 [facility] SARS-COV-2 COVID-19 2021-08-06 Completed Unive rsity of PFIZER VACCINE 00:00:00 [facility] SARS-COV-2 COVID-19 2021-08-06 Completed Unive rsity of PFIZER VACCINE 00:00:00 [facility] SARS-COV-2 COVID-19 2021-08-06 Completed Unive rsity of PFIZER VACCINE 00:00:00 [facility] SARS-COV-2 COVID-19 2021-08-06 Completed Unive rsity of PFIZER VACCINE 00:00:00 [facility] SARS-COV-2 COVID-19 2021-08-06 Completed Unive rsity of PFIZER VACCINE 00:00:00 [facility] SARS-COV-2 COVID-19 2021-08-06 Completed Unive rsity of PFIZER VACCINE 00:00:00 [facility] SARS-COV-2 COVID-19 2021-08-06 Completed Unive rsity of PFIZER VACCINE 00:00:00 [facility] SARS-COV-2 COVID-19 2021-08-06 Completed Unive rsity of PFIZER VACCINE 00:00:00 [facility] SARS-COV-2 COVID-19 2021-08-06 Completed Unive rsity of PFIZER VACCINE 00:00:00 [facility] SARS-COV-2 COVID-19 2021-08-06 Completed Unive rsity of PFIZER VACCINE 00:00:00 [facility] SARS-COV-2 COVID-19 2021-08-06 Completed Unive rsity of PFIZER VACCINE 00:00:00 [facility] SARS-COV-2 COVID-19 2021-08-06 Completed Unive rsity of PFIZER VACCINE 00:00:00 [facility] SARS-COV-2 COVID-19 2021-08-06 Completed Unive rsity of PFIZER VACCINE 00:00:00 [facility] SARS-COV-2 COVID-19 2021-08-06 Completed Unive rsity of PFIZER VACCINE 00:00:00 [facility] SARS-COV-2 COVID-19 2021-08-06 Completed Unive rsity of PFIZER VACCINE 00:00:00 [facility] SARS-COV-2 COVID-19 2021-08-06 Completed Unive rsity of PFIZER VACCINE 00:00:00 [facility] SARS-COV-2 COVID-19 2021-08-06 Completed Unive rsity of PFIZER VACCINE 00:00:00 [facility] SARS-COV-2 COVID-19 2021-08-06 Completed Unive rsity of PFIZER VACCINE 00:00:00 [facility] SARS-COV-2 COVID-19 2021-08-06 Completed Unive rsity of PFIZER VACCINE 00:00:00 [facility] SARS-COV-2 COVID-19 2021-08-06 Completed Unive rsity of PFIZER VACCINE 00:00:00 [facility] SARS-COV-2 COVID-19 2021-08-06 Completed Unive rsity of PFIZER VACCINE 00:00:00 [facility] SARS-COV-2 COVID-19 2021-08-06 Completed Unive rsity of PFIZER VACCINE 00:00:00 [facility] SARS-COV-2 COVID-19 2021-08-06 Completed Unive rsity of PFIZER VACCINE 00:00:00 [facility] SARS-COV-2 COVID-19 2021-08-06 Completed Unive rsity of PFIZER VACCINE 00:00:00 [facility] SARS-COV-2 COVID-19 2021-08-06 Completed Unive rsity of PFIZER VACCINE 00:00:00 [facility] SARS-COV-2 COVID-19 2021-08-06 Completed Unive rsity of PFIZER VACCINE 00:00:00 [facility] SARS-COV-2 COVID-19 2021-08-06 Completed Unive rsity of PFIZER VACCINE 00:00:00 [facility] SARS-COV-2 COVID-19 2021-08-06 Completed Unive rsity of PFIZER VACCINE 00:00:00 [facility] PFIZER COVID-19 MRNA 2021-08-06 Completed Meth odist VACCINATION 00:00:00 Hospital PFIZER COVID-19 MRNA 2021-08-06 Completed Meth odist VACCINATION 00:00:00 [facility] PFIZER COVID-19 MRNA 2021-08-06 Completed Meth odist VACCINATION 00:00:00 [facility] PFIZER COVID-19 MRNA 2021-08-06 Completed Meth odist VACCINATION 00:00:00 Hospital PFIZER COVID-19 MRNA 2021-08-06 Completed Meth odist VACCINATION 00:00:00 [facility] PFIZER COVID-19 MRNA 2021-08-06 Completed Meth odist VACCINATION 00:00:00 Hospital PFIZER COVID-19 MRNA 2021-08-06 Completed Meth odist VACCINATION 00:00:00 Hospital PFIZER COVID-19 MRNA 2021-08-06 Completed Meth odist VACCINATION 00:00:00 Hospital PFIZER COVID-19 MRNA 2021-08-06 Completed Meth odist VACCINATION 00:00:00 [facility] SARS-COV-2 COVID-19 2021-07-09 Completed Unive rsity of PFIZER VACCINE 00:00:00 [facility] Influenza Virus 2021-07-09 Completed [facility] of Vaccine Quad .5 mL 00:00:00 [place] [facility] 6[facility] SARS-COV-2 COVID-19 2021-07-09 Completed Unive rsity of PFIZER VACCINE 00:00:00 [facility] Influenza Virus 2021-07-09 Completed [facility] of Vaccine Quad .5 mL 00:00:00 [place] [facility] IM 6+ MO [facility] SARS-COV-2 COVID-19 2021-07-09 Completed Unive rsity of PFIZER VACCINE 00:00:00 [facility] Influenza Virus 2021-07-09 Completed [facility] of Vaccine Quad .5 mL 00:00:00 [place] [facility] IM 6+ MO [facility] SARS-COV-2 COVID-19 2021-07-09 Completed Unive rsity of PFIZER VACCINE 00:00:00 [facility] Influenza Virus 2021-07-09 Completed [facility] Vaccine Quad .5 mL 00:00:00 [facility] 6+ [facility] SARS-COV-2 COVID-19 2021-07-09 Completed [facility] of PFIZER VACCINE 00:00:00 [facility] Influenza Virus 2021-07-09 Completed [facility] Vaccine Quad .5 mL 00:00:00 [facility] 6[facility] SARS-COV-2 COVID-19 2021-07-09 Completed [facility] of PFIZER VACCINE 00:00:00 [facility] Influenza Virus 2021-07-09 Completed [facility] Vaccine Quad .5 mL 00:00:00 [facility] 6+ [facility] SARS-COV-2 COVID-19 2021-07-09 Completed [facility] of PFIZER VACCINE 00:00:00 [facility] Influenza Virus 2021-07-09 Completed [facility] Vaccine Quad .5 mL 00:00:00 [facility] 6+ [facility] SARS-COV-2 COVID-19 2021-07-09 Completed [facility] of PFIZER VACCINE 00:00:00 [facility] Influenza Virus 2021-07-09 Completed [facility] Vaccine Quad .5 mL 00:00:00 [facility] 6[facility] SARS-COV-2 COVID-19 2021-07-09 Completed [facility] rs[facility] of PFIZER VACCINE 00:00:00 [facility] Influenza Virus 2021-07-09 Completed [facility] Vaccine Quad .5 mL 00:00:00 [facility] 6[facility] SARS-COV-2 COVID-19 2021-07-09 Completed [facility] of PFIZER VACCINE 00:00:00 [facility] Influenza Virus 2021-07-09 Completed [facility] Vaccine Quad .5 mL 00:00:00 [facility] 6+ [facility] SARS-COV-2 COVID-19 2021-07-09 Completed [facility] of PFIZER VACCINE 00:00:00 [facility] Influenza Virus 2021-07-09 Completed [facility] Vaccine Quad .5 mL 00:00:00 [facility] 6+ [facility] SARS-COV-2 COVID-19 2021-07-09 Completed [facility] of PFIZER VACCINE 00:00:00 [facility] Influenza Virus 2021-07-09 Completed [facility] Vaccine Quad .5 mL 00:00:00 [facility] 6+ MO Branch SARS-COV-2 COVID-19 2021-07-09 Completed [facility]ive rs[facility] of PFIZER VACCINE 00:00:00 [facility] Influenza Virus 2021-07-09 Completed [facility] Vaccine Quad .5 mL 00:00:00 [facility] 6+ MO Branch SARS-COV-2 COVID-19 2021-07-09 Completed [facility] rs[facility] of PFIZER VACCINE 00:00:00 [facility] Influenza Virus 2021-07-09 Completed [facility] Vaccine Quad .5 mL 00:00:00 [facility] 6+ MO Branch SARS-COV-2 COVID-19 2021-07-09 Completed [facility] rs[facility] of PFIZER VACCINE 00:00:00 [facility] Influenza Virus 2021-07-09 Completed [facility] Vaccine Quad .5 mL 00:00:00 [facility] 6+ [facility] SARS-COV-2 COVID-19 2021-07-09 Completed [facility] of PFIZER VACCINE 00:00:00 [facility] Influenza Virus 2021-07-09 Completed [facility] Vaccine Quad .5 mL 00:00:00 [facility] 6+ [facility] SARS-COV-2 COVID-19 2021-07-09 Completed [facility] of PFIZER VACCINE 00:00:00 [facility] Influenza Virus 2021-07-09 Completed [facility] Vaccine Quad .5 mL 00:00:00 [facility] 6+ [facility] SARS-COV-2 COVID-19 2021-07-09 Completed [facility] of PFIZER VACCINE 00:00:00 [facility] Influenza Virus 2021-07-09 Completed [facility] Vaccine Quad .5 mL 00:00:00 [facility] 6+ [facility] SARS-COV-2 COVID-19 2021-07-09 Completed [facility] of PFIZER VACCINE 00:00:00 [facility] Influenza Virus 2021-07-09 Completed [facility] Vaccine Quad .5 mL 00:00:00 [facility] 6+ MO Branch SARS-COV-2 COVID-19 2021-07-09 Completed [facility]ive rsity of PFIZER VACCINE 00:00:00 [facility] Influenza Virus 2021-07-09 Completed [facility] Vaccine Quad .5 mL 00:00:00 [facility] 6+ MO Branch SARS-COV-2 COVID-19 2021-07-09 Completed [facility] rs[facility] of PFIZER VACCINE 00:00:00 [facility] Influenza Virus 2021-07-09 Completed [facility] Vaccine Quad .5 mL 00:00:00 [facility] 6+ MO Branch SARS-COV-2 COVID-19 2021-07-09 Completed [facility]ive rsity of PFIZER VACCINE 00:00:00 [facility] Influenza Virus 2021-07-09 Completed [facility] Vaccine Quad .5 mL 00:00:00 [facility] 6+ MO Branch SARS-COV-2 COVID-19 2021-07-09 Completed [facility]ive rsity of PFIZER VACCINE 00:00:00 [facility] Influenza Virus 2021-07-09 Completed [facility] Vaccine Quad .5 mL 00:00:00 [facility] IM 6+ MO Branch SARS-COV-2 COVID-19 2021-07-09 Completed [facility]ive rsity of PFIZER VACCINE 00:00:00 [facility] Influenza Virus 2021-07-09 Completed [facility] Vaccine Quad .5 mL 00:00:00 [facility] IM 6+ MO Branch SARS-COV-2 COVID-19 2021-07-09 Completed [facility] of PFIZER VACCINE 00:00:00 [facility] Influenza Virus 2021-07-09 Completed [facility] Vaccine Quad .5 mL 00:00:00 [facility] 6+ MO [facility] SARS-COV-2 COVID-19 2021-07-09 Completed [facility]ive rsity of PFIZER VACCINE 00:00:00 [facility] Influenza Virus 2021-07-09 Completed [facility] Vaccine Quad .5 mL 00:00:00 [facility] 6+ MO Branch SARS-COV-2 COVID-19 2021-07-09 Completed [facility]ive rs[facility] of PFIZER VACCINE 00:00:00 [facility] Influenza Virus 2021-07-09 Completed [facility] Vaccine Quad .5 mL 00:00:00 [facility] IM 6+ MO Branch (FLUZONE/FLULAVAL/FL UARIX) SARS-COV-2 COVID-19 2021-07-09 Completed [facility]ive rsity of PFIZER VACCINE 00:00:00 [facility] Influenza Virus 2021-07-09 Completed [facility] Vaccine Quad .5 mL 00:00:00 [facility] 6+ MO Branch (FLUZONE/FLULAVAL/FL UARIX) SARS-COV-2 COVID-19 2021-07-09 Completed [facility]ive rsity of PFIZER VACCINE 00:00:00 [facility] Influenza Virus 2021-07-09 Completed [facility] Vaccine Quad .5 mL 00:00:00 [facility] 6+ MO Branch (FLUZONE/FLULAVAL/FL UARIX) PFIZER COVID-19 MRNA 2021-07-09 Completed [facility]ist VACCINATION 00:00:00 [facility] PFIZER COVID-19 MRNA 2021-07-09 Completed [facility] odist VACCINATION 00:00:00 [facility] PFIZER COVID-19 MRNA 2021-07-09 Completed [facility] odist VACCINATION 00:00:00 [facility] PFIZER COVID-19 MRNA 2021-07-09 Completed [facility] odist VACCINATION 00:00:00 [facility] PFIZER COVID-19 MRNA 2021-07-09 Completed [facility]ist VACCINATION 00:00:00 [facility] PFIZER COVID-19 MRNA 2021-07-09 Completed [facility]ist VACCINATION 00:00:00 [facility] PFIZER COVID-19 MRNA 2021-07-09 Completed [facility]ist VACCINATION 00:00:00 [facility] PFIZER COVID-19 MRNA 2021-07-09 Completed [facility] odist VACCINATION 00:00:00 [facility] PFIZER COVID-19 MRNA 2021-07-09 Completed [facility]ist VACCINATION 00:00:00 [facility] PFIZER COVID-19 MRNA 2021-07-09 Completed [facility] VACCINATION 00:00:00 Hospital PFIZER COVID-19 MRNA 2021-07-09 Completed [facility] VACCINATION 00:00:00 [facility] Tetanus/Diptheria 2016-08-11 Completed [facility] of 00:00:00 [facility] Varicella 2016-08-11 Completed University of (varivax)(chicken 00:00:00 [place] [facility] pox[facility] Tetanus/Diptheria 2016-08-11 Completed [facility]y of 00:00:00 [facility] Varicella 2016-08-11 Completed [facility] (varivax)(chicken 00:00:00 [facility] pox[facility] Tetanus/Diptheria 2016-08-11 Completed [facility]y of 00:00:00 [facility] Varicella 2016-08-11 Completed [facility] of (varivax)(chicken 00:00:00 [facility] pox[facility] Tetanus/Diptheria 2016-08-11 Completed [facility] of 00:00:00 [facility] Varicella 2016-08-11 Completed [facility] (varivax)(chicken 00:00:00 [facility] pox[facility] Tetanus/Diptheria 2016-08-11 Completed [facility]y of 00:00:00 [facility] Varicella 2016-08-11 Completed [facility] of (varivax)(chicken 00:00:00 [facility] pox[facility] Tetanus/Diptheria 2016-08-11 Completed [facility] ity of 00:00:00 [facility] Varicella 2016-08-11 Completed [facility] of (varivax)(chicken 00:00:00 [facility] pox[facility] Tetanus/Diptheria 2016-08-11 Completed [facility] of 00:00:00 [facility] Varicella 2016-08-11 Completed [facility] (varivax)(chicken 00:00:00 [facility] pox[facility] Tetanus/Diptheria 2016-08-11 Completed [facility] ity of 00:00:00 [facility] Varicella 2016-08-11 Completed [facility] of (varivax)(chicken 00:00:00 [facility] pox[facility] Tetanus/Diptheria 2016-08-11 Completed [facility] of 00:00:00 [facility] Varicella 2016-08-11 Completed [facility] (varivax)(chicken 00:00:00 [facility] pox[facility] Tetanus/Diptheria 2016-08-11 Completed [facility] ity of 00:00:00 [facility] Varicella 2016-08-11 Completed [facility] (varivax)(chicken 00:00:00 [facility] pox[facility] Tetanus/Diptheria 2016-08-11 Completed [facility] of 00:00:00 [facility] Varicella 2016-08-11 Completed [facility] of (varivax)(chicken 00:00:00 [facility] pox[facility] Tetanus/Diptheria 2016-08-11 Completed [facility] of 00:00:00 [facility] Varicella 2016-08-11 Completed [facility] (varivax)(chicken 00:00:00 [facility] pox[facility] Tetanus/Diptheria 2016-08-11 Completed [facility] of 00:00:00 [facility] Varicella 2016-08-11 Completed [facility] of (varivax)(chicken 00:00:00 [facility] pox[facility] Tetanus/Diptheria 2016-08-11 Completed [facility] of 00:00:00 [facility] Varicella 2016-08-11 Completed [facility] of (varivax)(chicken 00:00:00 [facility] pox[facility] Tetanus/Diptheria 2016-08-11 Completed [facility] of 00:00:00 [facility] Varicella 2016-08-11 Completed [facility] of (varivax)(chicken 00:00:00 [facility] pox[facility] Tetanus/Diptheria 2016-08-11 Completed [facility] of 00:00:00 [facility] Varicella 2016-08-11 Completed [facility] of (varivax)(chicken 00:00:00 [facility] pox[facility] Tetanus/Diptheria 2016-08-11 Completed [facility] of 00:00:00 [facility] Varicella 2016-08-11 Completed [facility] (varivax)(chicken 00:00:00 [facility] pox[facility] Tetanus/Diptheria 2016-08-11 Completed [facility] of 00:00:00 [facility] Varicella 2016-08-11 Completed [facility] (varivax)(chicken 00:00:00 [facility] pox[facility] Tetanus/Diptheria 2016-08-11 Completed [facility] of 00:00:00 [facility] Varicella 2016-08-11 Completed [facility] (varivax)(chicken 00:00:00 [facility] p[facility] Tetanus/Diptheria 2016-08-11 Completed [facility] of 00:00:00 [facility] Varicella 2016-08-11 Completed [facility] (varivax)(chicken 00:00:00 [facility] pox[facility] Tetanus/Diptheria 2016-08-11 Completed [facility] of 00:00:00 [facility] Varicella 2016-08-11 Completed [facility] of (varivax)(chicken 00:00:00 [facility] pox[facility] Tetanus/Diptheria 2016-08-11 Completed [facility] of 00:00:00 [facility] Varicella 2016-08-11 Completed [facility] of (varivax)(chicken 00:00:00 [facility] pox[facility] Tetanus/Diptheria 2016-08-11 Completed Univers [facility] of 00:00:00 [facility] Varicella 2016-08-11 Completed [facility] of (varivax)(chicken 00:00:00 [facility] pox[facility] Tetanus/Diptheria 2016-08-11 Completed [facility] of 00:00:00 [facility] Varicella 2016-08-11 Completed [facility] of (varivax)(chicken 00:00:00 [facility] pox[facility] Tetanus/Diptheria 2016-08-11 Completed [facility] of 00:00:00 [facility] Varicella 2016-08-11 Completed [facility] (varivax)(chicken 00:00:00 [facility] pox[facility] Tetanus/Diptheria 2016-08-11 Completed [facility] of 00:00:00 [facility] Varicella 2016-08-11 Completed [facility] of (varivax)(chicken 00:00:00 [facility] pox[facility] Tetanus/Diptheria 2016-08-11 Completed [facility] of 00:00:00 [facility] Varicella 2016-08-11 Completed [facility] of (varivax)(chicken 00:00:00 [facility] pox[facility] Tetanus/Diptheria 2016-08-11 Completed [facility] of 00:00:00 [facility] Varicella 2016-08-11 Completed [facility] of (varivax)(chicken 00:00:00 [facility] pox[facility] Tetanus/Diptheria 2016-08-11 Completed [facility] of 00:00:00 [facility] Varicella 2016-08-11 Completed University of [...] HEPATITIS A 2008-09-27 Completed [facility] of 00:00:00 [facility] HPV 2008-09-27 Completed [facility] of 00:00:00 [facility] HEPATITIS A 2008-09-27 Completed University of 00:00:00 [facility] HPV 2008-09-27 Completed [facility] of 00:00:00 [facility] HEPATITIS A 2008-09-27 Completed [facility] of 00:00:00 [facility] HPV 2008-09-27 Completed [facility] of 00:00:00 [facility] HEPATITIS A 2008-09-27 Completed [facility] of 00:00:00 [facility] HPV 2008-09-27 Completed [facility] of 00:00:00 [facility] HEPATITIS A 2008-09-27 Completed [facility] of 00:00:00 [facility] HPV 2008-09-27 Completed [facility] of 00:00:00 [facility] HEPATITIS A 2008-09-27 Completed [facility] 00:00:00 [facility] HPV 2008-09-27 Completed [facility] of 00:00:00 [facility] HEPATITIS A 2008-09-27 Completed [facility] of 00:00:00 [facility] HPV 2008-09-27 Completed [facility] of 00:00:00 [facility] HEPATITIS A 2008-09-27 Completed University [...] Branch HPV 2008-09-27 Completed [facility] of 00:00:00 [facility] HEPATITIS A 2008-09-27 Completed [facility] of 00:00:00 [facility] HPV 2008-09-27 Completed [facility] of 00:00:00 [facility] HEPATITIS A 2008-09-27 Completed [facility] of 00:00:00 [facility] HPV 2008-09-27 Completed [facility] of 00:00:00 [facility] HEPATITIS A 2008-09-27 Completed [facility] of 00:00:00 [facility] HPV 2008-09-27 Completed [facility] of 00:00:00 [facility] HEPATITIS A 2008-09-27 Completed University [...] Branch HPV 2008-03-06 Completed [facility] of 00:00:00 [facility] HEPATITIS A 2008-03-06 Completed University [...] Branch HPV 2008-03-06 Completed [facility] of 00:00:00 [facility] HEPATITIS A 2008-03-06 Completed University [...] Branch HPV 2008-03-06 Completed [facility] of 00:00:00 [facility] HEPATITIS A 2008-03-06 Completed [facility] of 00:00:00 [facility] HPV 2008-03-06 Completed [facility] of 00:00:00 [facility] HEPATITIS A 2008-03-06 Completed [facility] of 00:00:00 [facility] HPV 2008-03-06 Completed [facility] of 00:00:00 [facility] HEPATITIS A 2008-03-06 Completed [facility] of 00:00:00 [facility] HPV 2008-03-06 Completed [facility] of 00:00:00 [facility] HEPATITIS A 2008-03-06 Completed [facility] of 00:00:00 [facility] HPV 2008-03-06 Completed [facility] of 00:00:00 [facility] HEPATITIS A 2008-03-06 Completed [facility] of 00:00:00 [facility] HPV 2008-03-06 Completed [facility] of 00:00:00 [facility] HEPATITIS A 2008-03-06 Completed [facility] of 00:00:00 [facility] HPV 2008-03-06 Completed [facility] of 00:00:00 [facility] HEPATITIS A 2008-03-06 Completed [facility] of 00:00:00 [facility] HPV 2008-03-06 Completed [facility] of 00:00:00 [facility] HEPATITIS A 2008-03-06 Completed [facility] of 00:00:00 [facility] HPV 2008-03-06 Completed [facility] of 00:00:00 [facility] HEPATITIS A 2008-03-06 Completed [facility] of 00:00:00 [facility] HPV 2008-03-06 Completed [facility] of 00:00:00 [facility] HEPATITIS A 2008-03-06 Completed [facility] of 00:00:00 [facility] HPV 2008-03-06 Completed [facility] of 00:00:00 [facility] Meningococcal 2007-12-29 Completed [facility] Polysaccharide 00:00:00 [place] [facility] (groups A, C, Y and Branc h W-135) conjugate vaccine (MCV4P) TDAP 2007-12-29 Completed [facility] of 00:00:00 [facility] Meningococcal 2007-12-29 Completed [facility] Polysaccharide 00:00:00 [facility] (groups A, C, Y and Branc h W-135) conjugate vaccine (MCV4P) TDAP 2007-12-29 Completed [facility] of 00:00:00 [facility] Meningococcal 2007-12-29 Completed [facility] Polysaccharide 00:00:00 [place] [facility] (groups A, C, Y and Branc h W-135) conjugate vaccine (MCV4P) TDAP 2007-12-29 Completed [facility] of 00:00:00 [facility] Meningococcal 2007-12-29 Completed [facility] Polysaccharide 00:00:00 [place] [facility] (groups A, C, Y and Branc h W-135) conjugate vaccine (MCV4P) TDAP 2007-12-29 Completed [facility] of 00:00:00 [facility] Meningococcal 2007-12-29 Completed [facility] Polysaccharide 00:00:00 [place] [facility] (groups A, C, Y and Branc h W-135) conjugate vaccine (MCV4P) TDAP 2007-12-29 Completed [facility] 00:00:00 [facility] Meningococcal 2007-12-29 Completed [facility] Polysaccharide 00:00:00 [place] [facility] (groups A, C, Y and Branc h W-135) conjugate vaccine (MCV4P) TDAP 2007-12-29 Completed [facility] of 00:00:00 [facility] Meningococcal 2007-12-29 Completed [facility] Polysaccharide 00:00:00 [place] [facility] (groups A, C, Y and Branc h W-135) conjugate vaccine (MCV4P) TDAP 2007-12-29 Completed [facility] of 00:00:00 [facility] Meningococcal 2007-12-29 Completed [facility] Polysaccharide 00:00:00 [place] [facility] (groups A, C, Y and Branc h W-135) conjugate vaccine (MCV4P) TDAP 2007-12-29 Completed [facility] of 00:00:00 [facility] Meningococcal 2007-12-29 Completed [facility] Polysaccharide 00:00:00 [place] [facility] (groups A, C, Y and Branc h W-135) conjugate vaccine (MCV4P) TDAP 2007-12-29 Completed [facility] of 00:00:00 [facility] Meningococcal 2007-12-29 Completed [facility] Polysaccharide 00:00:00 [place] [facility] (groups A, C, Y and Branc h W-135) conjugate vaccine (MCV4P) TDAP 2007-12-29 Completed [facility] of 00:00:00 [facility] Meningococcal 2007-12-29 Completed [facility] Polysaccharide 00:00:00 [place] [facility] (groups A, C, Y and Branc h W-135) conjugate vaccine (MCV4P) TDAP 2007-12-29 Completed [facility] of 00:00:00 [facility] Meningococcal 2007-12-29 Completed [facility] Polysaccharide 00:00:00 [place] [facility] (groups A, C, Y and Branc h W-135) conjugate vaccine (MCV4P) TDAP 2007-12-29 Completed [facility] of 00:00:00 [facility] Meningococcal 2007-12-29 Completed [facility] Polysaccharide 00:00:00 [place] [facility] (groups A, C, Y and Branc h W-135) conjugate vaccine (MCV4P) TDAP 2007-12-29 Completed [facility] of 00:00:00 [facility] Meningococcal 2007-12-29 Completed [facility] Polysaccharide 00:00:00 [place] [facility] (groups A, C, Y and Branc h W-135) conjugate vaccine (MCV4P) TDAP 2007-12-29 Completed [facility] of 00:00:00 [facility] Meningococcal 2007-12-29 Completed [facility] Polysaccharide 00:00:00 [place] [facility] (groups A, C, Y and Branc h W-135) conjugate vaccine (MCV4P) TDAP 2007-12-29 Completed [facility] of 00:00:00 [facility] Meningococcal 2007-12-29 Completed [facility] of Polysaccharide 00:00:00 [place] [facility] (groups A, C, Y and Branc h W-135) conjugate vaccine (MCV4P) TDAP 2007-12-29 Completed [facility] 00:00:00 [facility] Meningococcal 2007-12-29 Completed [facility] Polysaccharide 00:00:00 [place] [facility] (groups A, C, Y and Branc h W-135) conjugate vaccine (MCV4P) TDAP 2007-12-29 Completed [facility] of 00:00:00 [facility] Meningococcal 2007-12-29 Completed [facility] Polysaccharide 00:00:00 [place] [facility] (groups A, C, Y and Branc h W-135) conjugate vaccine (MCV4P) TDAP 2007-12-29 Completed [facility] of 00:00:00 [facility] Meningococcal 2007-12-29 Completed [facility] Polysaccharide 00:00:00 [place] [facility] (groups A, C, Y and Branc h W-135) conjugate vaccine (MCV4P) TDAP 2007-12-29 Completed [facility] of 00:00:00 [facility] Meningococcal 2007-12-29 Completed [facility] Polysaccharide 00:00:00 [place] [facility] (groups A, C, Y and Branc h W-135) conjugate vaccine (MCV4P) TDAP 2007-12-29 Completed [facility] of 00:00:00 [facility] Meningococcal 2007-12-29 Completed [facility] Polysaccharide 00:00:00 [place] [facility] (groups A, C, Y and Branc h W-135) conjugate vaccine (MCV4P) TDAP 2007-12-29 Completed [facility] of 00:00:00 [facility] Meningococcal 2007-12-29 Completed [facility] Polysaccharide 00:00:00 [place] [facility] (groups A, C, Y and Branc h W-135) conjugate vaccine (MCV4P) TDAP 2007-12-29 Completed [facility] 00:00:00 [facility] Meningococcal 2007-12-29 Completed [facility] Polysaccharide 00:00:00 [place] [facility] (groups A, C, Y and Branc h W-135) conjugate vaccine (MCV4P) TDAP 2007-12-29 Completed [facility] of 00:00:00 [facility] Meningococcal 2007-12-29 Completed [facility] Polysaccharide 00:00:00 [place] [facility] (groups A, C, Y and Branc h W-135) conjugate vaccine (MCV4P) TDAP 2007-12-29 Completed [facility] 00:00:00 [facility] Meningococcal 2007-12-29 Completed [facility] Polysaccharide 00:00:00 [place] [facility] (groups A, C, Y and Branc h W-135) conjugate vaccine (MCV4P) TDAP 2007-12-29 Completed [facility] 00:00:00 [facility] Meningococcal 2007-12-29 Completed [facility] Polysaccharide 00:00:00 [place] [facility] (groups A, C, Y and Branc h W-135) conjugate vaccine (MCV4P) TDAP 2007-12-29 Completed [facility] 00:00:00 [facility] Meningococcal 2007-12-29 Completed [facility] Polysaccharide 00:00:00 [place] [facility] (groups A, C, Y and Branc h W-135) conjugate vaccine (MCV4P) TDAP 2007-12-29 Completed [facility] 00:00:00 [facility] Meningococcal 2007-12-29 Completed [facility] Polysaccharide 00:00:00 [place] [facility] (groups A, C, Y and Branc h W-135) conjugate vaccine (MCV4P) TDAP 2007-12-29 Completed [facility] 00:00:00 [facility] Meningococcal 2007-12-29 Completed [facility] Polysaccharide 00:00:00 [place] [facility] (groups A, C, Y and Branc h W-135) conjugate vaccine (MCV4P) TDAP 2007-12-29 Completed [facility] of 00:00:00 [facility] DTaP, Unspecified 1998-01-03 Completed Univers [facility]y of Formulation 00:00:00 [facility] Hep B, Adol or Pedi 1998-01-03 Completed Unive rsity of Dosage 00:00:00 [facility] Poliovirus, Live, 1998-01-03 Completed [facility], Trivalent 00:00:00 [facility] DTaP, Unspecified 1998-01-03 Completed [facility] Formulation 00:00:00 [facility] Hep B, Adol or Pedi 1998-01-03 Completed [facility] Dosage 00:00:00 [facility] Poliovirus, Live, 1998-01-03 Completed [facility] Oral, Trivalent 00:00:00 [facility] DTaP, Unspecified 1998-01-03 Completed [facility] Formulation 00:00:00 [facility] Hep B, Adol or Pedi 1998-01-03 Completed [facility] Dosage 00:00:00 [facility] Poliovirus, Live, 1998-01-03 Completed [facility] Oral, Trivalent 00:00:00 [facility] DTaP, Unspecified 1998-01-03 Completed [facility] Formulation 00:00:00 [facility] Hep B, Adol or Pedi 1998-01-03 Completed [facility] Dosage 00:00:00 [facility] Poliovirus, Live, 1998-01-03 Completed [facility] Oral, Trivalent 00:00:00 [facility] DTaP, Unspecified 1998-01-03 Completed [facility] Formulation 00:00:00 [facility] Hep B, Adol or Pedi 1998-01-03 Completed [facility] Dosage 00:00:00 [facility] Poliovirus, Live, 1998-01-03 Completed [facility] Oral, Trivalent 00:00:00 [facility] [place] DTaP, Unspecified 1998-01-03 Completed [facility] Formulation 00:00:00 [facility] Hep B, Adol or Pedi 1998-01-03 Completed [facility] Dosage 00:00:00 [facility] Poliovirus, Live, 1998-01-03 Completed [facility] Oral, Trivalent 00:00:00 [facility] DTaP, Unspecified 1998-01-03 Completed [facility] Formulation 00:00:00 [facility] Hep B, Adol or Pedi 1998-01-03 Completed [facility] Dosage 00:00:00 [facility] Poliovirus, Live, 1998-01-03 Completed [facility] Oral, Trivalent 00:00:00 [facility] DTaP, Unspecified 1998-01-03 Completed [facility] Formulation 00:00:00 [facility] Hep B, Adol or Pedi 1998-01-03 Completed [facility] Dosage 00:00:00 [facility] Poliovirus, Live, 1998-01-03 Completed [facility] Oral, Trivalent 00:00:00 [facility] DTaP, Unspecified 1998-01-03 Completed [facility] Formulation 00:00:00 [facility] Hep B, Adol or Pedi 1998-01-03 Completed [facility] Dosage 00:00:00 [facility] Poliovirus, Live, 1998-01-03 Completed [facility] Oral, Trivalent 00:00:00 [facility] DTaP, Unspecified 1998-01-03 Completed [facility] Formulation 00:00:00 [facility] Hep B, Adol or Pedi 1998-01-03 Completed [facility] Dosage 00:00:00 [facility] Poliovirus, Live, 1998-01-03 Completed [facility] Oral, Trivalent 00:00:00 [facility] DTaP, Unspecified 1998-01-03 Completed [facility] Formulation 00:00:00 [facility] Hep B, Adol or Pedi 1998-01-03 Completed [facility] Dosage 00:00:00 [facility] Poliovirus, Live, 1998-01-03 Completed [facility] Oral, Trivalent 00:00:00 [facility] DTaP, Unspecified 1998-01-03 Completed [facility] Formulation 00:00:00 [facility] Hep B, Adol or Pedi 1998-01-03 Completed [facility] of Dosage 00:00:00 [facility] Poliovirus, Live, 1998-01-03 Completed [facility] Oral, Trivalent 00:00:00 [facility] DTaP, Unspecified 1998-01-03 Completed [facility] Formulation 00:00:00 [facility] Hep B, Adol or Pedi 1998-01-03 Completed [facility] Dosage 00:00:00 [facility] Poliovirus, Live, 1998-01-03 Completed [facility] Oral, Trivalent 00:00:00 [facility] DTaP, Unspecified 1998-01-03 Completed [facility] Formulation 00:00:00 [facility] Hep B, Adol or Pedi 1998-01-03 Completed [facility] of Dosage 00:00:00 [facility] Poliovirus, Live, 1998-01-03 Completed [facility] Oral, Trivalent 00:00:00 [facility] DTaP, Unspecified 1998-01-03 Completed [facility] Formulation 00:00:00 [facility] Hep B, Adol or Pedi 1998-01-03 Completed [facility] Dosage 00:00:00 [facility] Poliovirus, Live, 1998-01-03 Completed [facility] Oral, Trivalent 00:00:00 [facility] DTaP, Unspecified 1998-01-03 Completed [facility] Formulation 00:00:00 [facility] Hep B, Adol or Pedi 1998-01-03 Completed [facility] of Dosage 00:00:00 [facility] Poliovirus, Live, 1998-01-03 Completed [facility] Oral, Trivalent 00:00:00 [facility] DTaP, Unspecified 1998-01-03 Completed [facility] Formulation 00:00:00 [facility] Hep B, Adol or Pedi 1998-01-03 Completed [facility] of Dosage 00:00:00 [facility] Poliovirus, Live, 1998-01-03 Completed [facility] Oral, Trivalent 00:00:00 [facility] DTaP, Unspecified 1998-01-03 Completed [facility] Formulation 00:00:00 [facility] Hep B, Adol or Pedi 1998-01-03 Completed [facility] of Dosage 00:00:00 [facility] Poliovirus, Live, 1998-01-03 Completed [facility] Oral, Trivalent 00:00:00 [facility] DTaP, Unspecified 1998-01-03 Completed [facility] Formulation 00:00:00 [facility] Hep B, Adol or Pedi 1998-01-03 Completed [facility] of Dosage 00:00:00 [facility] Poliovirus, Live, 1998-01-03 Completed [facility] Oral, Trivalent 00:00:00 [facility] DTaP, Unspecified 1998-01-03 Completed [facility] Formulation 00:00:00 [facility] Hep B, Adol or Pedi 1998-01-03 Completed [facility] of Dosage 00:00:00 [facility] Poliovirus, Live, 1998-01-03 Completed [facility] Oral, Trivalent 00:00:00 [facility] DTaP, Unspecified 1998-01-03 Completed [facility] Formulation 00:00:00 [facility] Hep B, Adol or Pedi 1998-01-03 Completed [facility] of Dosage 00:00:00 [facility] Poliovirus, Live, 1998-01-03 Completed [facility] Oral, Trivalent 00:00:00 [facility] DTaP, Unspecified 1998-01-03 Completed [facility] Formulation 00:00:00 [facility] Hep B, Adol or Pedi 1998-01-03 Completed [facility] of Dosage 00:00:00 [facility] Poliovirus, Live, 1998-01-03 Completed [facility] Oral, Trivalent 00:00:00 [facility] DTaP, Unspecified 1998-01-03 Completed [facility] Formulation 00:00:00 [facility] Hep B, Adol or Pedi 1998-01-03 Completed [facility] of Dosage 00:00:00 [facility] Poliovirus, Live, 1998-01-03 Completed [facility] Oral, Trivalent 00:00:00 [facility] DTaP, Unspecified 1998-01-03 Completed [facility] Formulation 00:00:00 [facility] Hep B, Adol or Pedi 1998-01-03 Completed [facility] of Dosage 00:00:00 [facility] Poliovirus, Live, 1998-01-03 Completed [facility] Oral, Trivalent 00:00:00 [facility] DTaP, Unspecified 1998-01-03 Completed [facility] Formulation 00:00:00 [facility] Hep B, Adol or Pedi 1998-01-03 Completed [facility] of Dosage 00:00:00 [facility] Poliovirus, Live, 1998-01-03 Completed [facility] Oral, Trivalent 00:00:00 [facility] DTaP, Unspecified 1998-01-03 Completed [facility] Formulation 00:00:00 [facility] Hep B, Adol or Pedi 1998-01-03 Completed [facility] of Dosage 00:00:00 [facility] Poliovirus, Live, 1998-01-03 Completed [facility] Oral, Trivalent 00:00:00 [facility] DTaP, Unspecified 1998-01-03 Completed [facility] Formulation 00:00:00 [facility] Hep B, Adol or Pedi 1998-01-03 Completed [facility] of Dosage 00:00:00 [facility] Poliovirus, Live, 1998-01-03 Completed [facility] Oral, Trivalent 00:00:00 [facility] DTaP, Unspecified 1998-01-03 Completed [facility] Formulation 00:00:00 [facility] Hep B, Adol or Pedi 1998-01-03 Completed [facility] of Dosage 00:00:00 [facility] Poliovirus, Live, 1998-01-03 Completed [facility] Oral, Trivalent 00:00:00 [facility] DTaP, Unspecified 1998-01-03 Completed [facility] Formulation 00:00:00 [facility] Hep B, Adol or Pedi 1998-01-03 Completed [facility] of Dosage 00:00:00 [facility] Poliovirus, Live, 1998-01-03 Completed [facility] Oral, Trivalent 00:00:00 [facility] Hep B, Unspecified 1997-03-28 Completed [facility] of Formulation 00:00:00 [facility] Hep B, Adol or Pedi 1997-03-28 Completed [facility] of Dosage 00:00:00 [facility] MMR 1997-03-28 Completed [facility] 00:00:00 [facility] Hep B, Unspecified 1997-03-28 Completed [facility] of Formulation 00:00:00 [facility] Hep B, Adol or Pedi 1997-03-28 Completed [facility] of Dosage 00:00:00 [facility] MMR 1997-03-28 Completed [facility] 00:00:00 [facility] Hep B, Unspecified 1997-03-28 Completed [facility] Formulation 00:00:00 [facility] Hep B, Adol or Pedi 1997-03-28 Completed [facility] of Dosage 00:00:00 [facility] MMR 1997-03-28 Completed [facility] 00:00:00 [facility] Hep B, Unspecified 1997-03-28 Completed [facility] of Formulation 00:00:00 [facility] Hep B, Adol or Pedi 1997-03-28 Completed [facility] of Dosage 00:00:00 [facility] MMR 1997-03-28 Completed [facility] 00:00:00 [facility] Hep B, Unspecified 1997-03-28 Completed [facility] of Formulation 00:00:00 [facility] Hep B, Adol or Pedi 1997-03-28 Completed [facility] of Dosage 00:00:00 [facility] MMR 1997-03-28 Completed [facility] 00:00:00 [facility] Hep B, Unspecified 1997-03-28 Completed [facility] of Formulation 00:00:00 [facility] Hep B, Adol or Pedi 1997-03-28 Completed [facility] of Dosage 00:00:00 [facility] MMR 1997-03-28 Completed [facility] 00:00:00 [facility] Hep B, Unspecified 1997-03-28 Completed [facility] of Formulation 00:00:00 [facility] Hep B, Adol or Pedi 1997-03-28 Completed [facility] of Dosage 00:00:00 [facility] MMR 1997-03-28 Completed [facility] 00:00:00 [facility] Hep B, Unspecified 1997-03-28 Completed [facility] of Formulation 00:00:00 [facility] Hep B, Adol or Pedi 1997-03-28 Completed [facility] of Dosage 00:00:00 [facility] MMR 1997-03-28 Completed [facility] 00:00:00 [facility] Hep B, Unspecified 1997-03-28 Completed [...] 1997-03-28 Completed [facility] of Dosage 00:00:00 [facility] MMR 1997-03-28 Completed [facility] 00:00:00 [facility] Hep B, Unspecified 1997-03-28 Completed [facility] of Formulation 00:00:00 [facility] Hep B, Adol or Pedi 1997-03-28 Completed [facility] of Dosage 00:00:00 [facility] MMR 1997-03-28 Completed [facility] 00:00:00 [facility] Hep B, Unspecified 1997-03-28 Completed [facility] of Formulation 00:00:00 [facility] Hep B, Adol or Pedi 1997-03-28 Completed [facility] of Dosage 00:00:00 [facility] MMR 1997-03-28 Completed [facility] 00:00:00 [facility] Hep B, Unspecified 1997-03-28 Completed [facility] of Formulation 00:00:00 [facility] Hep B, Adol or Pedi 1997-03-28 Completed [facility] of Dosage 00:00:00 [facility] MMR 1997-03-28 Completed [facility] 00:00:00 [facility] Hep B, Unspecified 1997-03-28 Completed [facility] of Formulation 00:00:00 [facility] Hep B, Adol or Pedi 1997-03-28 Completed [facility] of Dosage 00:00:00 [facility] MMR 1997-03-28 Completed [facility] 00:00:00 [facility] Hep B, Unspecified 1997-03-28 Completed [facility] of Formulation 00:00:00 [facility] Hep B, Adol or Pedi 1997-03-28 Completed [facility] of Dosage 00:00:00 [facility] MMR 1997-03-28 Completed [facility] 00:00:00 [facility] Hep B, Unspecified 1997-03-28 Completed [facility] of Formulation 00:00:00 [facility] Hep B, Adol or Pedi 1997-03-28 Completed [facility] of Dosage 00:00:00 [facility] MMR 1997-03-28 Completed [facility] 00:00:00 [facility] Hep B, Unspecified 1997-03-28 Completed [facility] of Formulation 00:00:00 [facility] Hep B, Adol or Pedi 1997-03-28 Completed [facility] of Dosage 00:00:00 [facility] MMR 1997-03-28 Completed [facility] 00:00:00 [facility] Hep B, Unspecified 1997-03-28 Completed [facility] of Formulation 00:00:00 [facility] Hep B, Adol or Pedi 1997-03-28 Completed [facility] of Dosage 00:00:00 [facility] MMR 1997-03-28 Completed [facility] 00:00:00 [facility] Hep B, Unspecified 1997-03-28 Completed [facility] of Formulation 00:00:00 [facility] Hep B, Adol or Pedi 1997-03-28 Completed [facility] of Dosage 00:00:00 [facility] MMR 1997-03-28 Completed [facility] 00:00:00 [facility] Hep B, Unspecified 1997-03-28 Completed [facility] of Formulation 00:00:00 [facility] Hep B, Adol or Pedi 1997-03-28 Completed [facility] of Dosage 00:00:00 [facility] MMR 1997-03-28 Completed [facility] 00:00:00 [facility] Hep B, Unspecified 1997-03-28 Completed [facility] of Formulation 00:00:00 [facility] Hep B, Adol or Pedi 1997-03-28 Completed [facility] of Dosage 00:00:00 [facility] MMR 1997-03-28 Completed [facility] 00:00:00 [facility] Hep B, Unspecified 1997-03-28 Completed [facility] of Formulation 00:00:00 [facility] Hep B, Adol or Pedi 1997-03-28 Completed [facility] of Dosage 00:00:00 [facility] MMR 1997-03-28 Completed [facility] 00:00:00 [facility] Hep B, Unspecified 1997-03-28 Completed [facility] of Formulation 00:00:00 [facility] Hep B, Adol or Pedi 1997-03-28 Completed [facility] rs[facility] of Dosage 00:00:00 [facility] MMR 1997-03-28 Completed [facility] 00:00:00 [facility] Hep B, Unspecified 1997-03-28 Completed [facility] of Formulation 00:00:00 [facility] Hep B, Adol or Pedi 1997-03-28 Completed [facility] of Dosage 00:00:00 [facility] MMR 1997-03-28 Completed [facility] 00:00:00 [facility] Hep B, Unspecified 1997-03-28 Completed [facility]ity of Formulation 00:00:00 [facility] Hep B, Adol or Pedi 1997-03-28 Completed [facility] of Dosage 00:00:00 [facility] MMR 1997-03-28 Completed [facility] 00:00:00 [facility] Hep B, Unspecified 1997-03-28 Completed [facility] of Formulation 00:00:00 [facility] Hep B, Adol or Pedi 1997-03-28 Completed [facility] of Dosage 00:00:00 [facility] MMR 1997-03-28 Completed [facility] 00:00:00 [facility] Hep B, Unspecified 1997-03-28 Completed [facility] of Formulation 00:00:00 [facility] Hep B, Adol or Pedi 1997-03-28 Completed [facility] of Dosage 00:00:00 [facility] MMR 1997-03-28 Completed [facility] 00:00:00 [facility] Hep B, Unspecified 1997-03-28 Completed [facility] of Formulation 00:00:00 [facility] Hep B, Adol or Pedi 1997-03-28 Completed [facility] of Dosage 00:00:00 [facility] MMR 1997-03-28 Completed [facility] 00:00:00 [facility] Hep B, Unspecified 1997-03-28 Completed [facility] of Formulation 00:00:00 [facility] Hep B, Adol or Pedi 1997-03-28 Completed [facility] of Dosage 00:00:00 [facility] MMR 1997-03-28 Completed [facility] 00:00:00 [facility] DTP 1994-05-19 Completed [facility] 00:00:00 [facility] Hib-HbOC 1994-05-19 Completed [facility] of 00:00:00 [facility] MMR 1994-05-19 Completed [facility] 00:00:00 [facility] Poliovirus, Live, 1994-05-19 Completed [facility] Oral, Trivalent 00:00:00 [facility] 1994-05-19 Completed [facility] of 00:00:00 [facility] Hib-HbOC 1994-05-19 Completed [facility] of 00:00:00 [facility] MMR 1994-05-19 Completed [facility] 00:00:00 [facility] Poliovirus, Live, 1994-05-19 Completed [facility] Oral, Trivalent 00:00:00 [facility] 1994-05-19 Completed [facility] of 00:00:00 [facility] Hib-HbOC 1994-05-19 Completed [facility] of 00:00:00 [facility] MMR 1994-05-19 Completed [facility] 00:00:00 [facility] Poliovirus, Live, 1994-05-19 Completed [facility] Oral, Trivalent 00:00:00 [facility] 1994-05-19 Completed [facility] of 00:00:00 [facility] Hib-HbOC 1994-05-19 Completed [facility] of 00:00:00 [facility] 1994-05-19 Completed University of 00:00:00 [facility] Poliovirus, Live, 1994-05-19 Completed [facility] of Oral, Trivalent 00:00:00 [facility] 1994-05-19 Completed [facility] of 00:00:00 [facility] Hib-HbOC 1994-05-19 Completed [facility] of 00:00:00 [facility] MMR 1994-05-19 Completed [facility] of 00:00:00 [facility] Poliovirus, Live, 1994-05-19 Completed [facility] Oral, Trivalent 00:00:00 [facility] 1994-05-19 Completed [facility] of 00:00:00 [facility] Hib-HbOC 1994-05-19 Completed [facility] of 00:00:00 [facility] MMR 1994-05-19 Completed [facility] of 00:00:00 [facility] Poliovirus, Live, 1994-05-19 Completed [facility] Oral, Trivalent 00:00:00 [facility] 1994-05-19 Completed [facility] of 00:00:00 [facility] Hib-HbOC 1994-05-19 Completed [facility] of 00:00:00 [facility] MMR 1994-05-19 Completed [facility] of 00:00:00 [facility] Poliovirus, Live, 1994-05-19 Completed [facility] Oral, Trivalent 00:00:00 [facility] 1994-05-19 Completed [facility] of 00:00:00 [facility] Hib-HbOC 1994-05-19 Completed [facility] of 00:00:00 [facility] MMR 1994-05-19 Completed [facility] of 00:00:00 [facility] Poliovirus, Live, 1994-05-19 Completed [facility] of Oral, Trivalent 00:00:00 [facility] 1994-05-19 Completed [facility] of 00:00:00 [facility] Hib-HbOC 1994-05-19 Completed [facility] of 00:00:00 [facility] MMR 1994-05-19 Completed [facility] 00:00:00 [facility] Poliovirus, Live, 1994-05-19 Completed [facility] Oral, Trivalent 00:00:00 [facility] 1994-05-19 Completed [facility] of 00:00:00 [facility] Hib-HbOC 1994-05-19 Completed [facility] of 00:00:00 [facility] MMR 1994-05-19 Completed [facility] 00:00:00 [facility] Poliovirus, Live, 1994-05-19 Completed [facility] Oral, Trivalent 00:00:00 [facility] 1994-05-19 Completed [facility] of 00:00:00 [facility] Hib-HbOC 1994-05-19 Completed [facility] of 00:00:00 [facility] MMR 1994-05-19 Completed [facility] of 00:00:00 [facility] Poliovirus, Live, 1994-05-19 Completed [facility] of Oral, Trivalent 00:00:00 [facility] 1994-05-19 Completed [facility] of 00:00:00 [facility] Hib-HbOC 1994-05-19 Completed [facility] of 00:00:00 [facility] MMR 1994-05-19 Completed [facility] 00:00:00 [facility] Poliovirus, Live, 1994-05-19 Completed [facility] Oral, Trivalent 00:00:00 [facility] 1994-05-19 Completed [facility] 00:00:00 [facility] Hib-HbOC 1994-05-19 Completed [facility] of 00:00:00 [facility] MMR 1994-05-19 Completed [facility] 00:00:00 [facility] Poliovirus, Live, 1994-05-19 Completed [facility] Oral, Trivalent 00:00:00 [facility] 1994-05-19 Completed [facility] 00:00:00 [facility] Hib-HbOC 1994-05-19 Completed [facility] 00:00:00 [facility] MMR 1994-05-19 Completed [facility] 00:00:00 [facility] Poliovirus, Live, 1994-05-19 Completed [facility] Oral, Trivalent 00:00:00 [facility] 1994-05-19 Completed [facility] 00:00:00 [facility] Hib-HbOC 1994-05-19 Completed [facility] 00:00:00 [facility] MMR 1994-05-19 Completed [facility] 00:00:00 [facility] Poliovirus, Live, 1994-05-19 Completed [facility] of Oral, Trivalent 00:00:00 [facility] 1994-05-19 Completed [facility] 00:00:00 [facility] Hib-HbOC 1994-05-19 Completed [facility] 00:00:00 [facility] 1994-05-19 Completed [facility] of 00:00:00 [facility] Poliovirus, Live, 1994-05-19 Completed [facility] of Oral, Trivalent 00:00:00 [facility] 1994-05-19 Completed [facility] 00:00:00 [facility] Hib-HbOC 1994-05-19 Completed [facility] 00:00:00 [facility] 1994-05-19 Completed [facility] 00:00:00 [facility] Poliovirus, Live, 1994-05-19 Completed [facility] Oral, Trivalent 00:00:00 [facility] 1994-05-19 Completed [facility] 00:00:00 [facility] Hib-HbOC 1994-05-19 Completed [facility] 00:00:00 [facility] MMR 1994-05-19 Completed [facility] 00:00:00 [facility] Poliovirus, Live, 1994-05-19 Completed [facility] Oral, Trivalent 00:00:00 [facility] 1994-05-19 Completed [facility] 00:00:00 [facility] Hib-HbOC 1994-05-19 Completed [facility] 00:00:00 [facility] MMR 1994-05-19 Completed [facility] 00:00:00 [facility] Poliovirus, Live, 1994-05-19 Completed [facility] Oral, Trivalent 00:00:00 [facility] [facility] 1994-05-19 Completed [facility] 00:00:00 [facility] Hib-HbOC 1994-05-19 Completed [facility] 00:00:00 [facility] MMR 1994-05-19 Completed [facility] 00:00:00 [facility] Poliovirus, Live, 1994-05-19 Completed [facility] Oral, Trivalent 00:00:00 [facility] 1994-05-19 Completed [facility] 00:00:00 [facility] Hib-HbOC 1994-05-19 Completed [facility] 00:00:00 [facility] MMR 1994-05-19 Completed [facility] 00:00:00 [facility] Poliovirus, Live, 1994-05-19 Completed [facility] Oral, Trivalent 00:00:00 [facility] 1994-05-19 Completed [facility] 00:00:00 [facility] Hib-HbOC 1994-05-19 Completed [facility] 00:00:00 [facility] MMR 1994-05-19 Completed [facility] 00:00:00 [facility] Poliovirus, Live, 1994-05-19 Completed [facility] Oral, Trivalent 00:00:00 [facility] 1994-05-19 Completed [facility] 00:00:00 [facility] Hib-HbOC 1994-05-19 Completed [facility] 00:00:00 [facility] MMR 1994-05-19 Completed [facility] 00:00:00 [facility] Poliovirus, Live, 1994-05-19 Completed [facility] Oral, Trivalent 00:00:00 [facility] 1994-05-19 Completed [facility] 00:00:00 [facility] Hib-HbOC 1994-05-19 Completed [facility] 00:00:00 [facility] MMR 1994-05-19 Completed [facility] 00:00:00 [facility] Poliovirus, Live, 1994-05-19 Completed [facility] Oral, Trivalent 00:00:00 [facility] 1994-05-19 Completed [facility] 00:00:00 [facility] Hib-HbOC 1994-05-19 Completed [facility] 00:00:00 [facility] MMR 1994-05-19 Completed [facility] 00:00:00 [facility] Poliovirus, Live, 1994-05-19 Completed [facility] Oral, Trivalent 00:00:00 [facility] DTP 1994-05-19 Completed [facility] 00:00:00 [facility] Hib-HbOC 1994-05-19 Completed [facility] 00:00:00 [facility] MMR 1994-05-19 Completed [facility] 00:00:00 [facility] Poliovirus, Live, 1994-05-19 Completed [facility] Oral, Trivalent 00:00:00 [facility] DTP 1994-05-19 Completed [facility] 00:00:00 [facility] Hib-HbOC 1994-05-19 Completed [facility] 00:00:00 [facility] MMR 1994-05-19 Completed [facility] 00:00:00 [facility] Poliovirus, Live, 1994-05-19 Completed [facility] Oral, Trivalent 00:00:00 [facility] DT 1994-05-19 Completed [facility] 00:00:00 [facility] Hib-HbOC 1994-05-19 Completed [facility] 00:00:00 [facility] MMR 1994-05-19 Completed [facility] 00:00:00 [facility] Poliovirus, Live, 1994-05-19 Completed [facility] Oral, Trivalent 00:00:00 [facility] DTP 1994-05-19 Completed [facility] 00:00:00 [facility] Hib-HbOC 1994-05-19 Completed [facility] 00:00:00 [facility] MMR 1994-05-19 Completed [facility] 00:00:00 [facility] Poliovirus, Live, 1994-05-19 Completed [facility] Oral, Trivalent 00:00:00 [facility] Heamophilus 1994-05-09 Completed [facility] Influenza B 00:00[facility]00 [facility] Influenza B 00:00:00 [facility] Influenza B 00:00:00 [facility] Influenza B 00:00:00 [facility] Influenza B 00:00:00 [facility] Influenza B 00:00:00 [facility] 1994-05-09 Completed [facility] of Influenza B 00:00:00 [facility] 1994-05-09 Completed [facility] of Influenza B 00:00:00 [facility] 1994-05-09 Completed [facility] Influenza B 00:00:00 [facility] 1994-05-09 Completed [facility] Influenza B 00:00:00 [facility] 1994-05-09 Completed [facility] Influenza B 00:00:00 [facility] 1994-05-09 Completed [facility] of Influenza B 00:00:00 [facility] 1994-05-09 Completed [facility] of Influenza B 00:00:00 [facility] 1994-05-09 Completed [facility] Influenza B 00:00:00 [facility] 1994-05-09 Completed [facility] Influenza B 00:00:00 [facility] 1994-05-09 Completed [facility] of Influenza B 00:00:00 [facility] 1994-05-09 Completed [facility] of Influenza B 00:00:00 [facility] 1994-05-09 Completed [facility] Influenza B 00:00:00 [facility] 1994-05-09 Completed [facility] Influenza B 00:00:00 [facility] 1994-05-09 Completed [facility] Influenza B 00:00:00 [facility] 1994-05-09 Completed [facility] Influenza B 00:00:00 [facility] 1994-05-09 Completed [facility] Influenza B 00:00:00 [facility] 1994-05-09 Completed [facility] of Influenza B 00:00:00 [facility] 1994-05-09 Completed [facility] Influenza B 00:00:00 [facility] 1994-05-09 Completed [facility] Influenza B 00:00:00 [facility] 1994-05-09 Completed [facility] of Influenza B 00:00:00 [facility] 1994-05-09 Completed [facility] of Influenza B 00:00:00 [facility] 1994-05-09 Completed [facility] of Influenza B 00:00:00 [facility] Hep B, Unspecified 1993-04-29 Completed Univer [facility]ity of Formulation 00:00:00 [facility] Hep B, Adol or Pedi 1993-04-29 Completed [...] 1993-04-29 Completed [facility] Formulation 00:00:00 [facility] Hep B, Adol or Pedi [...] 1993-04-29 Completed Unive rs[facility] of Dosage 00:00:00 [facility] Hep B, Unspecified 1993-04-29 Completed [facility] Formulation 00:00:00 [facility] Hep B, Adol or Pedi 1993-04-29 Completed [facility]ive rs[facility] Dosage 00:00:00 [facility] DTP 1992 Completed [facility] 00:00:00 [facility] Heamophilus 1992 Completed [facility] of Influenza B 00:00:00 [facility] Hib-HbOC 1992 Completed [facility] 00:00:00 [facility] DTP 1992 Completed [facility] 00:00:00 [facility] Heamophilus 1992 Completed [facility] of Influenza B 00:00:00 [facility] Hib-HbOC 1992 Completed [facility] 00:00:00 [facility] DTP 1992 Completed [facility] 00:00:00 [facility] Heamophilus 1992 Completed [facility] of Influenza B 00:00:00 [facility] Hib-HbOC 1992 Completed [facility] 00:00:00 [facility] DTP 1992 Completed [facility] 00:00:00 [facility] Heamophilus 1992 Completed [facility] of Influenza B 00:00:00 [facility] Hib-HbOC 1992 Completed [facility] 00:00:00 [facility] DTP 1992 Completed [facility] 00:00:00 [facility] Heamophilus 1992 Completed [facility] of Influenza B 00:00:00 [facility] Hib-HbOC 1992 Completed [facility] 00:00:00 [facility] DTP 1992 Completed [facility] 00:00:00 [facility] Heamophilus 1992 Completed [facility] of Influenza B 00:00:00 [facility] Hib-HbOC 1992 Completed [facility] 00:00:00 [facility] DTP 1992 Completed [facility] 00:00:00 [facility] Heamophilus 1992 Completed [facility] of Influenza B 00:00:00 [facility] Hib-HbOC 1992 Completed [facility] 00:00:00 [facility] DTP 1992 Completed [facility] 00:00:00 [facility] Heamophilus 1992 Completed [facility] of Influenza B 00:00:00 [facility] Hib-HbOC 1992 Completed [facility] 00:00:00 [facility] DTP 1992 Completed [facility] 00:00:00 [facility] Heamophilus 1992 Completed [facility] of Influenza B 00:00:00 [facility] Hib-HbOC 1992 Completed [facility] 00:00:00 [facility] DTP 1992 Completed [facility] 00:00:00 [facility] Heamophilus 1992 Completed [facility] of Influenza B 00:00:00 [facility] Hib-HbOC 1992 Completed [facility] 00:00:00 [facility] DTP 1992 Completed [facility] 00:00:00 [facility] Heamophilus 1992 Completed [facility] of Influenza B 00:00:00 [facility] Hib-HbOC 1992 Completed [facility] 00:00:00 [facility] DTP 1992 Completed [facility] 00:00:00 [facility] Heamophilus 1992 Completed [facility] of Influenza B 00:00:00 [facility] Hib-HbOC 1992 Completed [facility] 00:00:00 [facility] DTP 1992 Completed [facility] 00:00:00 [facility] Heamophilus 1992 Completed [facility] of Influenza B 00:00:00 [facility] Hib-HbOC 1992 Completed [facility] 00:00:00 [facility] DTP 1992 Completed [facility] 00:00:00 [facility] Heamophilus 1992 Completed [facility] Influenza B 00:00:00 [facility] Hib-HbOC 1992 Completed [facility] 00:00:00 [facility] DTP 1992 Completed [facility] 00:00:00 [facility] Heamophilus 1992 Completed [facility] of Influenza B 00:00:00 [facility] Hib-HbOC 1992 Completed [facility] 00:00:00 [facility] DTP 1992 Completed [facility] 00:00:00 [facility] Heamophilus 1992 Completed [facility] of Influenza B 00:00:00 [facility] Hib-HbOC 1992 Completed [facility] 00:00:00 [facility] DTP 1992 Completed [facility] 00:00:00 [facility] Heamophilus 1992 Completed [facility] of Influenza B 00:00:00 [facility] Hib-HbOC 1992 Completed [facility] 00:00:00 [facility] DTP 1992 Completed [facility] 00:00:00 [facility] Heamophilus 1992 Completed [facility] of Influenza B 00:00:00 [facility] Hib-HbOC 1992 Completed [facility] 00:00:00 [facility] DTP 1992 Completed [facility] 00:00:00 [facility] Heamophilus 1992 Completed [facility] of Influenza B 00:00:00 [facility] Hib-HbOC 1992 Completed [facility] 00:00:00 [facility] DTP 1992 Completed [facility] 00:00:00 [facility] Heamophilus 1992 Completed [facility] Influenza B 00:00:00 [facility] Hib-HbOC 1992 Completed [facility] 00:00:00 [facility] DTP 1992 Completed [facility] 00:00:00 [facility] Heamophilus 1992 Completed [facility] of Influenza B 00:00:00 [facility] Hib-HbOC 1992 Completed [facility] 00:00:00 [facility] DTP 1992 Completed [facility] 00:00:00 [facility] Heamophilus 1992 Completed [facility] of Influenza B 00:00:00 [facility] Hib-HbOC 1992 Completed [facility] 00:00:00 [facility] DTP 1992 Completed [facility] 00:00:00 [facility] Heamophilus 1992 Completed [facility] of Influenza B 00:00:00 [facility] Hib-HbOC 1992 Completed [facility] 00:00:00 [facility] DTP 1992 Completed [facility] 00:00:00 [facility] Heamophilus 1992 Completed [facility] of Influenza B 00:00:00 [facility] Hib-HbOC 1992 Completed [facility] 00:00:00 [facility] DTP 1992 Completed [facility] 00:00:00 [facility] Heamophilus 1992 Completed [facility] of Influenza B 00:00:00 [facility] Hib-HbOC 1992 Completed [facility] 00:00:00 [facility] DTP 1992 Completed [facility] 00:00:00 [facility] Heamophilus 1992 Completed [facility] of Influenza B 00:00:00 [facility] Hib-HbOC 1992 Completed [facility] 00:00:00 [facility] DTP 1992 Completed [facility] 00:00:00 [facility] Heamophilus 1992 Completed [facility] of Influenza B 00:00:00 [facility] Hib-HbOC 1992 Completed [facility] 00:00:00 [facility] DTP 1992 Completed [facility] 00:00:00 [facility] Heamophilus 1992 Completed [facility] Influenza B 00:00:00 [facility] Hib-HbOC 1992 Completed [facility] 00:00:00 [facility] DTP 1992 Completed [facility] 00:00:00 [facility] Heamophilus 1992 Completed [facility] Influenza B 00:00:00 [facility] Hib-HbOC 1992 Completed [facility] 00:00:00 [facility] DTP 1992 Completed [facility] 00:00:00 [facility] Heamophilus 1992 Completed [facility] Influenza B 00:00:00 [facility] Hib-HbOC 1992 Completed [facility] 00:00:00 [facility] Poliovirus, Live, 1992 Completed [facility] Oral, Trivalent 00:00:00 [facility] DT 1992 Completed [facility] 00:00:00 [facility] Heamophilus 1992 Completed [facility] of Influenza B 00:00:00 [facility] Hib-HbOC 1992 Completed [facility] 00:00:00 [facility] Poliovirus, Live, 1992 Completed [facility] of Oral, Trivalent 00:00:00 [facility] DTP 1992 Completed [facility] 00:00:00 [facility] Heamophilus 1992 Completed [facility] of Influenza B 00:00:00 [facility] Hib-HbOC 1992 Completed [facility] 00:00:00 [facility] Poliovirus, Live, 1992 Completed [facility] Oral, Trivalent 00:00:00 [facility] DTP 1992 Completed [facility] 00:00:00 [facility] Heamophilus 1992 Completed [facility] Influenza B 00:00:00 [facility] Hib-HbOC 1992 Completed [facility] 00:00:00 [facility] Poliovirus, Live, 1992 Completed [facility] Oral, Trivalent 00:00:00 [facility] 1992 Completed [facility] 00:00:00 [facility] Heamophilus 1992 Completed [facility] of Influenza B 00:00:00 [facility] Hib-HbOC 1992 Completed [facility] 00:00:00 [facility] Poliovirus, Live, 1992 Completed [facility] of Oral, Trivalent 00:00:00 [facility] 1992 Completed [facility] 00:00:00 [facility] Heamophilus 1992 Completed [facility] of Influenza B 00:00:00 [facility] Hib-HbOC 1992 Completed [facility] 00:00:00 [facility] Poliovirus, Live, 1992 Completed [facility] Oral, Trivalent 00:00:00 [facility] 1992 Completed [facility] 00:00:00 [facility] Heamophilus 1992 Completed [facility] of Influenza B 00:00:00 [facility] Hib-HbO 1992 Completed [facility] 00:00:00 [facility] Poliovirus, Live, 1992 Completed [facility] Oral, Trivalent 00:00:00 [facility] 1992 Completed [facility] 00:00:00 [facility] Heamophilus 1992 Completed [facility] of Influenza B 00:00:00 [facility] Hib-HbOC 1992 Completed [facility] 00:00:00 [facility] Poliovirus, Live, 1992 Completed [facility] of Oral, Trivalent 00:00:00 [facility] DT 1992 Completed [facility] 00:00:00 [facility] Heamophilus 1992 Completed [facility] of Influenza B 00:00:00 [facility] Hib-HbOC 1992 Completed [facility] 00:00:00 [facility] Poliovirus, Live, 1992 Completed [facility] of Oral, Trivalent 00:00:00 [facility] 1992 Completed [facility] 00:00:00 [facility] Heamophilus 1992 Completed [facility] Influenza B 00:00:00 [facility] Hib-HbOC 1992 Completed [facility] 00:00:00 [facility] Poliovirus, Live, 1992 Completed [facility] of Oral, Trivalent 00:00:00 [facility] 1992 Completed [facility] 00:00:00 [facility] Heamophilus 1992 Completed [facility] Influenza B 00:00:00 [facility] Hib-HbOC 1992 Completed [facility] 00:00:00 [facility] Poliovirus, Live, 1992 Completed [facility] of Oral, Trivalent 00:00:00 [facility] 1992 Completed [facility] 00:00:00 [facility] Heamophilus 1992 Completed [facility] Influenza B 00:00:00 [facility] Hib-HbOC 1992 Completed [facility] 00:00:00 [facility] Poliovirus, Live, 1992 Completed [facility] of Oral, Trivalent 00:00:00 [facility] 1992 Completed [facility] 00:00:00 [facility] Heamophilus 1992 Completed [facility] Influenza B 00:00:00 [facility] Hib-HbOC 1992 Completed [facility] 00:00:00 [facility] Poliovirus, Live, 1992 Completed [facility] of Oral, Trivalent 00:00:00 [facility] 1992 Completed [facility] 00:00:00 [facility] Heamophilus 1992 Completed [facility] Influenza B 00:00:00 [facility] Hib-HbOC 1992 Completed [facility] 00:00:00 [facility] Poliovirus, Live, 1992 Completed [facility] of Oral, Trivalent 00:00:00 [facility] 1992 Completed [facility] 00:00:00 [facility] Heamophilus 1992 Completed [facility] Influenza B 00:00:00 [facility] Hib-HbOC 1992 Completed [facility] 00:00:00 [facility] Poliovirus, Live, 1992 Completed [facility] Oral, Trivalent 00:00:00 [facility] 1992 Completed [facility] 00:00:00 [facility] Heamophilus 1992 Completed [facility] Influenza B 00:00:00 [facility] Hib-HbOC 1992 Completed [facility] 00:00:00 [facility] Poliovirus, Live, 1992 Completed [facility] of Oral, Trivalent 00:00:00 [facility] 1992 Completed [facility] 00:00:00 [facility] Heamophilus 1992 Completed [facility] Influenza B 00:00:00 [facility] Hib-HbOC 1992 Completed [facility] 00:00:00 [facility] Poliovirus, Live, 1992 Completed [facility] of Oral, Trivalent 00:00:00 [facility] 1992 Completed [facility] 00:00:00 [facility] Heamophilus 1992 Completed [facility] Influenza B 00:00:00 [facility] Hib-HbOC 1992 Completed [facility] 00:00:00 [facility] Poliovirus, Live, 1992 Completed [facility] Oral, Trivalent 00:00:00 [facility] 1992 Completed [facility] 00[facility]00[facility]00 [facility] Influenza B 00:00:00 [facility] Hib-HbOC 1992 Completed [facility] 00:00:00 [facility] Poliovirus, Live, 1992 Completed [facility] of Oral, Trivalent 00:00:00 [facility] DT 1992 Completed [facility] 00:00:00 [facility] Heamophilus 1992 Completed [facility] Influenza B 00:00:00 [facility] Hib-HbOC 1992 Completed [facility] 00:00:00 [facility] Poliovirus, Live, 1992 Completed [facility] of Oral, Trivalent 00:00:00 [facility] 1992 Completed [facility] 00:00:00 [facility] Heamophilus 1992 Completed [facility] Influenza B 00:00:00 [facility] Hib-HbOC 1992 Completed [facility] 00:00:00 [facility] Poliovirus, Live, 1992 Completed [facility] of Oral, Trivalent 00:00:00 [facility] 1992 Completed [facility] 00:00:00 [facility] Heamophilus 1992 Completed [facility] Influenza B 00:00:00 [facility] Hib-HbOC 1992 Completed [facility] 00:00:00 [facility] Poliovirus, Live, 1992 Completed [facility] of Oral, Trivalent 00:00:00 [facility] 1992 Completed [facility] 00:00:00 [facility] Heamophilus 1992 Completed [facility] Influenza B 00:00:00 [facility] Hib-HbOC 1992 Completed [facility] 00:00:00 [facility] Poliovirus, Live, 1992 Completed [facility] of Oral, Trivalent 00:00:00 [facility] 1992 Completed [facility] 00:00:00 [facility] Heamophilus 1992 Completed [facility] Influenza B 00:00:00 [facility] Hib-HbO 1992 Completed [facility] 00:00:00 [facility] Poliovirus, Live, 1992 Completed [facility] of Oral, Trivalent 00:00:00 [facility] 1992 Completed [facility] 00:00:00 [facility] Heamophilus 1992 Completed [facility] Influenza B 00:00:00 [facility] Hib-HbOC 1992 Completed [facility] 00:00:00 [facility] Poliovirus, Live, 1992 Completed [facility] Oral, Trivalent 00:00:00 [facility] 1992 Completed [facility] 00:00:00 [facility] Heamophilus 1992 Completed [facility] of Influenza B 00:00:00 [facility] Hib-HbOC 1992 Completed [facility] of 00:00:00 [facility] Poliovirus, Live, 1992 Completed Univers ity of Oral, Trivalent 00:00:00 [facility] 1992 Completed [facility] 00:00:00 [facility] Heamophilus 1992 Completed [facility] of Influenza B 00:00:00 [facility] Hib-HbOC 1992 Completed [facility] 00:00:00 [facility] Poliovirus, Live, 1992 Completed [facility]y of Oral, Trivalent 00:00:00 [facility] 1992 Completed [facility] 00:00:00 [facility] Heamophilus 1992 Completed [facility] Influenza B 00:00:00 [facility] Hib-HbOC 1992 Completed [facility] 00:00:00 [facility] Poliovirus, Live, 1992 Completed [facility]y of Oral, Trivalent 00:00:00 [facility] 1992 Completed [facility] 00:00:00 [facility] Heamophilus 1992 Completed [facility] of Influenza B 00:00:00 [facility] Hib-HbO 1992 Completed [facility] 00:00:00 [facility] Poliovirus, Live, 1992 Completed [facility]y of Oral, Trivalent 00:00:00 [facility] 1992 Completed [facility] 00:00:00 [facility] Heamophilus 1992 Completed [facility] Influenza B 00:00:00 [facility] Hib-HbO 1992 Completed [facility] 00:00:00 [facility] Poliovirus, Live, 1992 Completed [facility]y of Oral, Trivalent 00:00:00 [facility] 1992 Completed [facility] 00:00:00 [facility] Heamophilus 1992 Completed [facility] of Influenza B 00:00:00 [facility] Hib-HbOC 1992 Completed [facility] of 00:00:00 [facility] Poliovirus, Live, 1992 Completed [facility]y of Oral, Trivalent 00:00:00 [facility] 1992 Completed [facility] 00:00:00 [facility] Heamophilus 1992 Completed [facility] Influenza B 00:00:00 [facility] Hib-HbOC 1992 Completed [facility] 00:00:00 [facility] Poliovirus, Live, 1992 Completed [facility] ity of Oral, Trivalent 00:00:00 [facility] DT 1992 Completed [facility] of 00:00:00 [facility] Heamophilus 1992 Completed [facility] of Influenza B 00:00:00 [facility] Hib-HbOC 1992 Completed [facility] of 00:00:00 [facility] Poliovirus, Live, 1992 Completed [facility]y of Oral, Trivalent 00:00:00 [facility] DT 1992 Completed [facility] of 00:00:00 [facility] Heamophilus 1992 Completed [facility] Influenza B 00:00:00 [facility] Hib-HbOC 1992 Completed [facility] 00:00:00 [facility] Poliovirus, Live, 1992 Completed [facility]y of Oral, Trivalent 00:00:00 [facility] 1992 Completed [facility] Influenza B 00:00:00 [facility] Hib-HbOC 1992 Completed [facility] 00:00:00 [facility] Poliovirus, Live, 1992 Completed Univers ity of Oral, Trivalent 00:00:00 [facility] DT 1992 Completed [facility] 00[facility]00[facility]00 [facility] Influenza B 00:00:00 [facility] Hib-HbOC 1992 Completed [facility] 00:00:00 [facility] Poliovirus, Live, 1992 Completed [facility]y of Oral, Trivalent 00:00:00 [facility] 1992 Completed [facility] 00:00:00 [facility] Heamophilus 1992 Completed [facility] of Influenza B 00:00:00 [facility] Hib-HbOC 1992 Completed [facility] 00:00:00 [facility] Poliovirus, Live, 1992 Completed [facility]y of Oral, Trivalent 00:00:00 [facility] 1992 Completed [facility] 00:00[facility]00 [facility] Influenza B 00:00:00 [facility] Hib-HbOC 1992 Completed [facility] 00:00:00 [facility] Poliovirus, Live, 1992 Completed [facility] ity of Oral, Trivalent 00:00:00 [facility] 1992 Completed [facility] 00:00:00 [facility] Heamophilus 1992 Completed [facility] of Influenza B 00:00:00 [facility] Hib-HbOC 1992 Completed [facility] of 00:00:00 [facility] Poliovirus, Live, 1992 Completed [facility]y of Oral, Trivalent 00:00:00 [facility] 1992 Completed [facility] of 00:00:00 [facility] Heamophilus 1992 Completed [facility] Influenza B 00:00:00 [facility] Hib-HbOC 1992 Completed [facility] 00:00:00 [facility] Poliovirus, Live, 1992 Completed Univers ity of Oral, Trivalent 00:00:00 [facility] DT 1992 Completed [facility] 00:00[facility]00 [facility] Influenza B 00:00:00 [facility] Hib-HbOC 1992 Completed [facility] 00:00:00 [facility] Poliovirus, Live, 1992 Completed [facility]y of Oral, Trivalent 00:00:00 [facility] 1992 Completed [facility] 00:00:00 [facility] Heamophilus 1992 Completed [facility] of Influenza B 00:00:00 [facility] Hib-HbOC 1992 Completed [facility] 00:00:00 [facility] Poliovirus, Live, 1992 Completed [facility] ity of Oral, Trivalent 00:00:00 [facility] DT 1992 Completed [facility] 00:00:00 [facility] Heamophilus 1992 Completed [facility] of Influenza B 00:00:00 [facility] Hib-HbOC 1992 Completed [facility] 00:00:00 [facility] Poliovirus, Live, 1992 Completed [facility]y of Oral, Trivalent 00:00:00 [facility] 1992 Completed [facility] 00:00:00 [facility] Heamophilus 1992 Completed [facility] of Influenza B 00:00:00 [facility] Hib-HbOC 1992 Completed [facility] 00:00:00 [facility] Poliovirus, Live, 1992 Completed [facility]y of Oral, Trivalent 00:00:00 [facility] 1992 Completed [facility] 00:00:00 [facility] Heamophilus 1992 Completed [facility] Influenza B 00:00:00 [facility] Hib-HbOC 1992 Completed [facility] 00:00:00 [facility] Poliovirus, Live, 1992 Completed [facility] ity of Oral, Trivalent 00:00:00 [facility] 1992 Completed [facility] 00:00[facility]00 [facility] Influenza B 00:00:00 [facility] Hib-HbOC 1992 Completed [facility] 00:00:00 [facility] Poliovirus, Live, 1992 Completed [facility]y of Oral, Trivalent 00:00:00 [facility] 1992 Completed [facility] 00:00[facility]00 [facility] Com[facility] Influenza B 00:00:00 [facility] Hib-HbO 1992 Completed [facility] 00:00:00 [facility] Poliovirus, Live, 1992 Completed [facility] ity of Oral, Trivalent 00:00:00 [facility] 1992 Completed [facility] of 00:00:00 [facility] Heamophilus 1992 Completed [facility] of Influenza B 00:00:00 [facility] Hib-HbOC 1992 Completed [facility] 00:00:00 [facility] Poliovirus, Live, 1992 Completed [facility] ity of Oral, Trivalent 00:00:00 [facility] 1992 Completed [facility] 00:00:00 [facility] Heamophilus 1992 Completed [facility] of Influenza B 00:00:00 [facility] Hib-HbOC 1992 Completed [facility] 00:00:00 [facility] Poliovirus, Live, 1992 Completed [facility]y of Oral, Trivalent 00:00:00 [facility] 1992 Completed [facility] 00:00:00 [facility] Heamophilus 1992 Completed [facility] of Influenza B 00:00:00 [facility] Hib-HbOC 1992 Completed [facility] 00:00:00 [facility] Poliovirus, Live, 1992 Completed [facility]y of Oral, Trivalent 00:00:00 [facility] 1992 Completed [facility] 00:00:00 [facility] Heamophilus 1992 Completed [facility] of Influenza B 00:00:00 [facility] Hib-HbOC 1992 Completed [facility] 00:00:00 [facility] Poliovirus, Live, 1992 Completed [facility] ity of Oral, Trivalent 00:00:00 [facility] 1992 Completed [facility] 00:00:00 [facility] Tom[facility]ophilus 1992 Completed [facility] of Influenza B 00:00:00 [facility] Hib-HbOC 1992 Completed [facility] 00:00:00 [facility] Poliovirus, Live, 1992 Completed [facility] ity of Oral, Trivalent 00:00:00 [facility] 1992 Completed [facility] 00:00:00 [facility] Tom[facility]ophilus 1992 Completed [facility] of Influenza B 00:00:00 [facility] Hib-HbOC 1992 Completed [facility] 00:00:00 [facility] Poliovirus, Live, 1992 Completed Univers ity of Oral, Trivalent 00:00:00 [facility] 1992 Completed [facility] of 00:00:00 [facility] Heamophilus 1992 Completed [facility] of Influenza B 00:00:00 [facility] Hib-HbOC 1992 Completed [facility] 00:00:00 [facility] Poliovirus, Live, 1992 Completed Univers ity of Oral, Trivalent 00:00:00 [facility] 1992 Completed [facility] 00:00:00 [facility] Heamophilus 1992 Completed [facility] of Influenza B 00:00:00 [facility] Hib-HbOC 1992 Completed [facility] 00:00:00 [facility] Poliovirus, Live, 1992 Completed Univers ity of Oral, Trivalent 00:00:00 [facility] DTP 1992 Completed [facility] of 00:00:00 [facility] Heamophilus 1992 Completed [facility] of Influenza B 00:00:00 [facility] Hib-HbOC 1992 Completed [facility] 00:00:00 [facility] Poliovirus, Live, 1992 Completed Univers ity of Oral, Trivalent 00:00:00 [facility] DTP 1992 Completed [facility] 00:00:00 [facility] Com[facility] Influenza B 00:00:00 [facility] Hib-HbOC 1992 Completed [facility] 00:00:00 [facility] Poliovirus, Live, 1992 Completed Univers ity of Oral, Trivalent 00:00:00 [facility] DTP 1992 Completed [facility] of 00:00:00 [facility] Heamophilus 1992 Completed [facility] of Influenza B 00:00:00 [facility] Hib-HbOC 1992 Completed [facility] 00:00:00 [facility] Poliovirus, Live, 1992 Completed Univers ity of Oral, Trivalent 00:00:00 [facility] SARS-COV-2 COVID-19 Unknown Completed Unive rsity of PFIZER VACCINE [facility] SARS-COV-2 COVID-19 Unknown Completed Unive rsity of PFIZER VACCINE [facility] DTP Unknown Completed [facility] DTP Unknown Completed [facility] DTP Unknown Completed [facility] DTP Unknown Completed [facility] DTaP, Unspecified Unknown Completed Univers ity of Formulation [facility] Influenza Virus Unknown Completed Universit y of Vaccine Quad .5 mL [facility] 6+ [place] Branch (FLUZONE/FLULAVAL/FL UARIX) Hep B, Unspecified Unknown Completed Univer sity of Formulation [facility] HEPATITIS A Unknown Completed [facility] HEPATITIS A Unknown Completed [facility] Hep B, Unspecified Unknown Completed Univer sity of Formulation [facility] Hep B, Adol or Pedi Unknown Completed Unive rsity of Dosage [facility] Hep B, Adol or Pedi Unknown Completed Unive rsity of Dosage [facility] Hep B, Adol or Pedi Unknown Completed Unive rsity of Dosage [facility] Heamophilus Unknown Completed [facility] Influenza [facility] Heamophilus Unknown Completed [facility] Influenza B [facility] Heamophilus Unknown Completed [facility] Influenza [facility] Heamophilus Unknown Completed [facility] Influenza [facility] Hib-HbOC Unknown Completed [facility] Hib-HbOC Unknown Completed [facility] Hib-HbOC Unknown Completed [facility] Hib-HbOC Unknown Completed [facility] HPV Unknown Completed [facility] HPV Unknown Completed [facility] HPV Unknown Completed [facility] Meningococcal Unknown Completed [facility] (groups A, C, Y and Branc h W-135) conjugate vaccine (MCV4P) MMR Unknown Completed [facility] MMR Unknown Completed [facility] Poliovirus, Live, Unknown Completed Univers ity of Oral, Trivalent [facility] Poliovirus, Live, Unknown Completed Univers ity of Oral, Trivalent [facility] Poliovirus, Live, Unknown Completed Univers ity of Oral, Trivalent [facility] Poliovirus, Live, Unknown Completed Univers ity of Oral, Trivalent [facility] Tetanus/Diptheria Unknown Completed Univers ity [facility] TDAP Unknown Completed [facility] Varicella Unknown Completed [facility] (varivax)(chicken [place] [facility] pox) Branch Varicella Unknown Completed [facility] (varivax)(chicken [place] [facility] pox) Branch SARS-COV-2 COVID-19 Unknown Completed Unive rsity of PFIZER VACCINE [facility] SARS-COV-2 COVID-19 Unknown Completed Unive rsity of PFIZER VACCINE [facility] DTP Unknown Completed [facility] DTP Unknown Completed [facility] DTP Unknown Completed [facility] DTP Unknown Completed [facility] DTaP, Unspecified Unknown Completed Univers ity of Formulation [facility] Influenza Virus Unknown Completed Universit y of Vaccine Quad .5 mL [facility] 6+ [place] Branch (FLUZONE/FLULAVAL/FL UARIX) Hep B, Unspecified Unknown Completed Univer sity of Formulation [facility] HEPATITIS A Unknown Completed [facility] HEPATITIS A Unknown Completed [facility] Hep B, Unspecified Unknown Completed Univer sity of Formulation [facility] Hep B, Adol or Pedi Unknown Completed Unive rsity of Dosage [facility] Hep B, Adol or Pedi Unknown Completed [facility]ive rsity of Dosage [facility] Hep B, Adol or Pedi Unknown Completed Unive rsity of Dosage [facility] Heamophilus Unknown Completed [facility] Influenza B [facility] Heamophilus Unknown Completed [facility] Influenza B [facility] Heamophilus Unknown Completed [facility] Influenza B [facility] Heamophilus Unknown Completed [facility] Influenza B [facility] Hib-HbOC Unknown Completed [facility] Hib-HbOC Unknown Completed [facility] Hib-HbOC Unknown Completed [facility] Hib-HbOC Unknown Completed [facility] HPV Unknown Completed [facility] HPV Unknown Completed [facility] HPV Unknown Completed [facility] Meningococcal Unknown Completed [facility] (groups A, C, Y and Branc h W-135) conjugate vaccine (MCV4P) MMR Unknown Completed [facility] MMR Unknown Completed [facility] Poliovirus, Live, Unknown Completed Univers ity of Oral, Trivalent [facility] Poliovirus, Live, Unknown Completed Univers ity of Oral, Trivalent [facility] Poliovirus, Live, Unknown Completed Univers ity of Oral, Trivalent [facility] Poliovirus, Live, Unknown Completed Univers ity of Oral, Trivalent [facility] Tetanus/Diptheria Unknown Completed Univers ity [facility] TDAP Unknown Completed [facility] Varicella Unknown Completed [facility] (varivax)(chicken [place] [facility] pox) Branch Varicella Unknown Completed [facility] (varivax)(chicken [place] [facility] pox) Branch SARS-COV-2 COVID-19 Unknown Completed Unive rsity of PFIZER VACCINE [facility] SARS-COV-2 COVID-19 Unknown Completed Unive rsity of PFIZER VACCINE [facility] DTP Unknown Completed [facility] DTP Unknown Completed [facility] DTP Unknown Completed [facility] DTP Unknown Completed [facility] DTaP, Unspecified Unknown Completed Univers ity of Formulation [facility] Influenza Virus Unknown Completed [facility]it y of Vaccine Quad .5 mL [facility] 6+ [place] Branch (FLUZONE/FLULAVAL/FL UARIX) Hep B, Unspecified Unknown Completed Univer sity of Formulation [facility] HEPATITIS A Unknown Completed [facility] HEPATITIS A Unknown Completed [facility] Hep B, Unspecified Unknown Completed Univer sity of Formulation [facility] Hep B, Adol or Pedi Unknown Completed Unive rsity of Dosage [facility] Hep B, Adol or Pedi Unknown Completed Unive rsity of Dosage [facility] Hep B, Adol or Pedi Unknown Completed Unive rsity of Dosage [facility] Heamophilus Unknown Completed [facility] Influenza B [facility] Heamophilus Unknown Completed [facility] Influenza B [facility] Heamophilus Unknown Completed [facility] Influenza B [facility] Heamophilus Unknown Completed [facility] Influenza B [facility] Hib-HbOC Unknown Completed [facility] Hib-HbOC Unknown Completed [facility] Hib-HbOC Unknown Completed [facility] Hib-HbOC Unknown Completed [facility] HPV Unknown Completed [facility] HPV Unknown Completed [facility] HPV Unknown Completed [facility] Meningococcal Unknown Completed [facility] Polysaccharide [facility] (groups A, C, Y and Branc h W-135) conjugate vaccine (MCV4P) MMR Unknown Completed [facility] MMR Unknown Completed [facility] Poliovirus, Live, Unknown Completed Univers ity of Oral, Trivalent [facility] Poliovirus, Live, Unknown Completed Univers ity of Oral, Trivalent [facility] Poliovirus, Live, Unknown Completed Univers ity of Oral, Trivalent [facility] Poliovirus, Live, Unknown Completed Univers ity of Oral, Trivalent [facility] Tetanus/Diptheria Unknown Completed Univers ity [facility] TDAP Unknown Completed [facility] Varicella Unknown Completed [facility] (varivax)(chicken [place] [facility] pox) Branch Varicella Unknown Completed [facility] (varivax)(chicken [place] [facility] pox) Branch SARS-COV-2 COVID-19 Unknown Completed [facility]ive rsity of PFIZER VACCINE [facility] SARS-COV-2 COVID-19 Unknown Completed Unive rsity of PFIZER VACCINE [facility] Branch DTP Unknown Completed [facility] DTP Unknown Completed [facility] DTP Unknown Completed [facility] DTP Unknown Completed [facility] DTaP, Unspecified Unknown Completed Univers ity of Formulation [facility] Influenza Virus Unknown Completed [facility]it y of Vaccine Quad .5 mL [facility] 6+ [place] Branch (FLUZONE/FLULAVAL/FL UARIX) Hep B, Unspecified Unknown Completed Univer sity of Formulation [facility] HEPATITIS A Unknown Completed [facility] HEPATITIS A Unknown Completed [facility] Hep B, Unspecified Unknown Completed Univer sity of Formulation [facility] Hep B, Adol or Pedi Unknown Completed Unive rsity of Dosage [facility] Hep B, Adol or Pedi Unknown Completed Unive rsity of Dosage [facility] Hep B, Adol or Pedi Unknown Completed Unive rsity of Dosage [facility] Heamophilus Unknown Completed [facility] Influenza [facility] Heamophilus Unknown Completed [facility] Influenza [facility] Heamophilus Unknown Completed [facility] Influenza [facility] Heamophilus Unknown Completed [facility] Hib-HbOC Unknown Completed [facility] Hib-HbOC Unknown Completed [facility] Hib-HbOC Unknown Completed [facility] Hib-HbOC Unknown Completed [facility] HPV Unknown Completed [facility] HPV Unknown Completed [facility] HPV Unknown Completed [facility] Meningococcal Unknown Completed [facility] (groups A, C, Y and Branc h W-135) conjugate vaccine (MCV4P) MMR Unknown Completed [facility] MMR Unknown Completed [facility] Poliovirus, Live, Unknown Completed Univers [facility]y of Oral, Trivalent [facility] [facility] [employer] [place] Poliovirus, Live, Unknown Completed [facility] Oral, Trivalent [facility] [place] Poliovirus, Live, Unknown Completed [facility] Oral, Trivalent [facility] [place] Poliovirus, Live, Unknown Completed [facility] Oral, Trivalent [facility] [place] Tetanus/Diptheria Unknown Completed Univers [facility] TDAP Unknown Completed [facility] Varicella Unknown Completed [facility] (varivax[facility] [place] [facility] pox[facility] Branch Varicella Unknown Completed [facility] (varivax)(chicken [place] [facility] pox[place] Branch SARS-COV-2 COVID-19 Unknown Completed [facility] [place] [facility] SARS-COV-2 COVID-19 Unknown Completed [facility] of [facility]FIZER VACCINE [facility] DTP Unknown Completed [facility] DTP Unknown Completed [facility] DTP Unknown Completed [facility] DTP Unknown Completed [facility] DTaP, Unspecified Unknown Completed Univers [facility]y of Formulation [facility] Influenza Virus Unknown Completed [facility] y of Vaccine Quad .5 mL [facility] 6+ [place] Branch (FLUZONE/FLULAVAL/FL UARIX) Hep B, Unspecified Unknown Completed Univer sity of Formulation [facility] HEPATITIS A Unknown Completed [facility] HEPATITIS A Unknown Completed [facility] Hep B, Unspecified Unknown Completed Univer [facility]ity of Formulation [facility] Hep B, Adol or Pedi Unknown Completed Unive rsity of Dosage [facility] Hep B, Adol or Pedi Unknown Completed Unive rsity of Dosage [facility] Hep B, Adol or Pedi Unknown Completed Unive rsity of Dosage [facility] Heamophilus Unknown Completed [facility] Influenza B [facility] Heamophilus Unknown Completed [facility] Influenza B [facility] Heamophilus Unknown Completed [facility] Influenza B [facility] Heamophilus Unknown Completed [facility] Hib-HbOC Unknown Completed [facility] Hib-HbOC Unknown Completed [facility] Hib-HbOC Unknown Completed [facility] Hib-HbOC Unknown Completed [facility] HPV Unknown Completed [facility] HPV Unknown Completed [facility] HPV Unknown Completed [facility] Meningococcal Unknown Completed [facility] Polysaccharide [facility] (groups A, C, Y and Branc h W-135) conjugate vaccine (MCV4P) MMR Unknown Completed [facility] MMR Unknown Completed [facility] Poliovirus, Live, Unknown Completed [facility] Oral, Trivalent [facility] [place] Poliovirus, Live, Unknown Completed [facility] Oral, Trivalent [facility] [place] Poliovirus, Live, Unknown Completed [facility] Oral, Trivalent [facility] [place] Poliovirus, Live, Unknown Completed [facility] Oral, Trivalent [facility] [place] Tetanus[facility]Diptheria [facility] Varicella Unknown Completed [facility] (varivax[facility] [place] [facility] pox[facility] Varicella Unknown Completed [facility] (varivax[facility] [place] [facility] pox[facility] SARS-COV-2 COVID-19 Unknown Completed Unive rsity of PFIZER VACCINE [facility] Branch SARS-COV-2 COVID-19 Unknown Completed [facility] rs[facility] of PFIZER VACCINE [facility] DTP Unknown Completed [facility] DTP Unknown Completed [facility] DTP Unknown Completed [facility] DTP Unknown Completed [facility] DTaP, Unspecified Unknown Completed [facility] Formulation [facility] Influenza Virus Unknown Completed Universit y of Vaccine Quad .5 mL [facility] IM 6+ MO Branch (FLUZONE/FLULAVAL/FL UARIX) Hep B, Unspecified Unknown Completed Univer sity of Formulation [facility] HEPATITIS A Unknown Completed [facility] HEPATITIS A Unknown Completed [facility] Hep B, Unspecified Unknown Completed [facility]iver [facility]ity of Formulation [facility] Hep B, Adol or Pedi Unknown Completed Unive rsity of Dosage [facility] Hep B, Adol or Pedi Unknown Completed [facility]ity of Dosage [facility] Hep B, Adol or Pedi Unknown Completed Unive [facility]ity of Dosage [facility] Heamophilus Unknown Completed [facility] Heamophilus Unknown Completed [facility] Influenza [facility] Heamophilus Unknown Completed [facility] Influenza B [facility] Heamophilus Unknown Completed [facility] Hib-HbOC Unknown Completed [facility] Hib-HbOC Unknown Completed [facility] Hib-HbOC Unknown Completed [facility] Hib-HbOC Unknown Completed [facility] HPV Unknown Completed [facility] HPV Unknown Completed [facility] HPV Unknown Completed [facility] Meningococcal Unknown Completed [facility] (groups A, C, Y and Branc h W-135) conjugate vaccine (MCV4P) MMR Unknown Completed [facility] MMR Unknown Completed [facility] Poliovirus, Live, Unknown Completed [facility] Oral, Trivalent [facility] [place] Poliovirus, Live, Unknown Completed [facility] Oral, Trivalent [facility] [place] Poliovirus, Live, Unknown Completed [facility] Oral, Trivalent [facility] [place] Poliovirus, Live, Unknown Completed [facility] Oral, Trivalent [facility] [place] Tetanus/Diptheria Unknown Completed [facility] TDAP Unknown Completed [facility] Varicella Unknown Completed [facility] (varivax[facility] [place] [facility] pox) [facility] Varicella Unknown Completed [facility] (varivax[facility] [place] [facility] pox) Branch SARS-COV-2 COVID-19 Unknown Completed Unive rsity of PFIZER VACCINE [facility] SARS-COV-2 COVID-19 Unknown Completed [facility] rs[facility] of PFIZER VACCINE [facility] DTP Unknown Completed [facility] DTP Unknown Completed [facility] DTP Unknown Completed [facility] DTP Unknown Completed [facility] DTaP, Unspecified Unknown Completed [facility] Formulation [facility] Influenza Virus Unknown Completed [facility] y of Vaccine Quad .5 mL [facility] 6+ [place] Branch (FLUZONE/FLULAVAL/FL UARIX) Hep B, Unspecified Unknown Completed Univer sity of Formulation [facility] HEPATITIS A Unknown Completed [facility] HEPATITIS A Unknown Completed [facility] Hep B, Unspecified Unknown Completed [facility]iver sity of Formulation [facility] Hep B, Adol or Pedi Unknown Completed Unive rsity of Dosage [facility] Hep B, Adol or Pedi Unknown Completed [facility]ive [facility]ity of Dosage [facility] Hep B, Adol or Pedi Unknown Completed [facility]ity of Dosage [facility] Heamophilus Unknown Completed [facility] Influenza [facility] Heamophilus Unknown Completed [facility] Influenza Former[facility] Heamophilus Unknown Completed [facility] Influenza [facility] Heamophilus Unknown Completed [facility] Influenza [facility] Hib-HbOC Unknown Completed [facility] Hib-HbOC Unknown Completed [facility] Hib-HbOC Unknown Completed [facility] Hib-HbOC Unknown Completed [facility] HPV Unknown Completed [facility] HPV Unknown Completed [facility] HPV Unknown Completed [facility] Meningococcal Unknown Completed [facility] (groups A, C, Y and Branc h W-135) conjugate vaccine (MCV4P) MMR Unknown Completed [facility] MMR Unknown Completed [facility] Poliovirus, Live, Unknown Completed [facility] Oral, Trivalent [facility] [place] Poliovirus, Live, Unknown Completed [facility] Oral, Trivalent [facility] [place] Poliovirus, Live, Unknown Completed [facility] Oral, [facility] Poliovirus, Live, Unknown Completed [facility] Oral, Trivalent [facility] Tetanus/Diptheria Unknown Completed [facility] TDAP Unknown Completed [facility] Varicella Unknown Completed [facility] (varivax)(chicken [place] [facility] pox) Branch Varicella Unknown Completed [facility] (varivax)(chicken [place] [facility] pox) [place] SARS-COV-2 COVID-19 Unknown Completed Unive rsity of PFIZER VACCINE [facility] SARS-COV-2 COVID-19 Unknown Completed Unive rsity of PFIZER VACCINE [facility] DTP Unknown Completed [facility] DTP Unknown Completed [facility] DTP Unknown Completed [facility] DTP Unknown Completed [facility] DTaP, Unspecified Unknown Completed [facility] of Formulation [facility] Influenza Virus Unknown Completed [facility] y of Vaccine Quad .5 mL [facility] 6+ [place] Branch (FLUZONE/FLULAVAL/FL UARIX) Hep B, Unspecified Unknown Completed Univer sity of Formulation [facility] HEPATITIS A Unknown Completed [facility] HEPATITIS A Unknown Completed [facility] Hep B, Unspecified Unknown Completed [facility]iver [facility]ity of Formulation [facility] Hep B, Adol or Pedi Unknown Completed Unive rsity of Dosage [facility] Hep B, Adol or Pedi Unknown Completed Unive rsity of Dosage [facility] Hep B, Adol or Pedi Unknown Completed Unive rsity of Dosage [facility] Heamophilus Unknown Completed [facility] Influenza [facility] Heamophilus Unknown Completed [facility] Influenza Former[facility] Heamophilus Unknown Completed [facility] Influenza [facility] Heamophilus Unknown Completed [facility] Influenza [facility] Hib-HbOC Unknown Completed [facility] Hib-HbOC Unknown Completed [facility] Hib-HbOC Unknown Completed [facility] Hib-HbOC Unknown Completed [facility] HPV Unknown Completed [facility] HPV Unknown Completed [facility] HPV Unknown Completed [facility] Meningococcal Unknown Completed [facility] (groups A, C, Y and Branc h W-135) conjugate vaccine (MCV4P) MMR Unknown Completed [facility] MMR Unknown Completed [facility] Poliovirus, Live, Unknown Completed [facility] Oral, T[facility] Poliovirus, Live, Unknown Completed [facility] Oral, Trivalent [facility] Poliovirus, Live, Unknown Completed [facility] Oral, Trivalent [facility] Poliovirus, Live, Unknown Completed [facility] Oral, Trivalent [facility] Tetanus/Diptheria Unknown Completed [facility] TDAP Unknown Completed [facility] Varicella Unknown Completed [facility] (varivax)(chicken [place] [facility] pox) Branch Varicella Unknown Completed [facility] (varivax)(chicken [place] [facility] pox) Branch SARS-COV-2 COVID-19 Unknown Completed Unive rsity of PFIZER VACCINE [facility] SARS-COV-2 COVID-19 Unknown Completed Unive rsity of PFIZER VACCINE [facility] DTP Unknown Completed [facility] DTP Unknown Completed [facility] DTP Unknown Completed [facility] DTP Unknown Completed [facility] DTaP, Unspecified Unknown Completed [facility] of Formulation [facility] Influenza Virus Unknown Completed [facility] y of Vaccine Quad .5 mL [facility] 6+ [place] Branch (FLUZONE/FLULAVAL/FL UARIX) Hep B, Unspecified Unknown Completed Univer sity of Formulation [facility] HEPATITIS A Unknown Completed [facility] HEPATITIS A Unknown Completed [facility] Hep B, Unspecified Unknown Completed [facility]iver [facility]ity of [facility] Hep B, Adol or Pedi Unknown Completed Unive rsity of Dosage [facility] Hep B, Adol or Pedi Unknown Completed Unive rsity of Dosage [facility] Hep B, Adol or Pedi Unknown Completed [facility]ive rsity of Dosage [facility] Heamophilus Unknown Completed [facility] Influenza B [facility] Heamophilus Unknown Completed [facility] Influenza B [facility] Heamophilus Unknown Completed [facility] Influenza B [facility] Heamophilus Unknown Completed [facility] Influenza B [facility] Hib-HbOC Unknown Completed [facility] Hib-HbOC Unknown Completed [facility] Hib-HbOC Unknown Completed [facility] Hib-HbOC Unknown Completed [facility] HPV Unknown Completed [facility] HPV Unknown Completed [facility] HPV Unknown Completed [facility] Meningococcal Unknown Completed [facility] (groups A, C, Y and Branc h W-135) conjugate vaccine (MCV4P) MMR Unknown Completed [facility] MMR Unknown Completed [facility] Poliovirus, Live, Unknown Completed [facility] Oral, Trivalent [facility] Poliovirus, Live, Unknown Completed [facility] Oral, Trivalent [facility] Poliovirus, Live, Unknown Completed [facility] Oral, Trivalent [facility] Poliovirus, Live, Unknown Completed [facility] Oral, Trivalent [facility] Tetanus/Diptheria Unknown Completed [facility] TDAP Unknown Completed [facility] Varicella Unknown Completed [facility] (varivax)(chicken [place] [facility] pox) Branch Varicella Unknown Completed [facility] (varivax)(chicken [place] [facility] pox) Branch SARS-COV-2 COVID-19 Unknown Completed Unive rsity of PFIZER VACCINE [facility] SARS-COV-2 COVID-19 Unknown Completed Unive rsity of PFIZER VACCINE [facility] DTP Unknown Completed [facility] DTP Unknown Completed [facility] DTP Unknown Completed [facility] DTP Unknown Completed [facility] DTaP, Unspecified Unknown Completed [facility] of Formulation [facility] Influenza Virus Unknown Completed [facility]it y of Vaccine Quad .5 mL [facility] 6+ [place] Branch (FLUZONE/FLULAVAL/FL UARIX) Hep B, Unspecified Unknown Completed Univer sity of Formulation [facility] HEPATITIS A Unknown Completed [facility] HEPATITIS A Unknown Completed [facility] Hep B, Unspecified Unknown Completed [facility]iver [facility]ity of Formulation [facility] Hep B, Adol or Pedi Unknown Completed Unive rsity of Dosage [facility] Hep B, Adol or Pedi Unknown Completed [facility]ity of Dosage [facility] Hep B, Adol or Pedi Unknown Completed Unive rsity of Dosage [facility] Heamophilus Unknown Completed [facility] Influenza B [facility] Heamophilus Unknown Completed [facility] Influenza B [facility] Heamophilus Unknown Completed [facility] Influenza B [facility] Heamophilus Unknown Completed [facility] Influenza B [facility] Hib-HbOC Unknown Completed [facility] Hib-HbOC Unknown Completed [facility] Hib-HbOC Unknown Completed [facility] Hib-HbOC Unknown Completed [facility] HPV Unknown Completed [facility] HPV Unknown Completed [facility] HPV Unknown Completed [facility] Meningococcal Unknown Completed [facility] Polysaccharide [facility] (groups A, C, Y and Branc h W-135) conjugate vaccine (MCV4P) MMR Unknown Completed [facility] MMR Unknown Completed [facility] Poliovirus, Live, Unknown Completed [facility] Oral, Trivalent [facility] Poliovirus, Live, Unknown Completed [facility] Oral, Trivalent [facility] Poliovirus, Live, Unknown Completed [facility] Oral, Trivalent [facility] Poliovirus, Live, Unknown Completed [facility] Oral, Trivalent [facility] Tetanus/Diptheria Unknown Completed [facility] TDAP Unknown Completed [facility] Varicella Unknown Completed [facility] (varivax)(chicken [place] [facility] pox) Branch Varicella Unknown Completed [facility] (varivax)(chicken [place] [facility] pox) Branch SARS-COV-2 COVID-19 Unknown Completed Unive rsity of PFIZER VACCINE [facility] SARS-COV-2 COVID-19 Unknown Completed Unive rsity of PFIZER VACCINE [facility] DTP Unknown Completed [facility] DTP Unknown Completed [facility] DTP Unknown Completed [facility] DTP Unknown Completed [facility] DTaP, Unspecified Unknown Completed [facility] of Formulation [facility] Influenza Virus Unknown Completed [facility] y of Vaccine Quad .5 mL [facility] 6+ [place] Branch (FLUZONE/FLULAVAL/FL UARIX) Hep B, Unspecified Unknown Completed Univer sity of Formulation [facility] HEPATITIS A Unknown Completed [facility] HEPATITIS A Unknown Completed [facility] Hep B, Unspecified Unknown Completed [facility]iver [facility]ity of Formulation [facility] Hep B, Adol or Pedi Unknown Completed Unive rsity of Dosage [facility] Hep B, Adol or Pedi Unknown Completed Unive rsity of Dosage [facility] Hep B, Adol or Pedi Unknown Completed Unive rsity of Dosage [facility] Heamophilus Unknown Completed [facility] Influenza B [facility] Heamophilus Unknown Completed [facility] Influenza B [facility] Heamophilus Unknown Completed [facility] Influenza B [facility] Heamophilus Unknown Completed [facility] Influenza B [facility] Hib-HbOC Unknown Completed [facility] Hib-HbOC Unknown Completed [facility] Hib-HbOC Unknown Completed [facility] Hib-HbOC Unknown Completed [facility] HPV Unknown Completed [facility] HPV Unknown Completed [facility] HPV Unknown Completed [facility] Meningococcal Unknown Completed [facility] Polysaccharide [facility] (groups A, C, Y and Branc h W-135) conjugate vaccine (MCV4P) MMR Unknown Completed [facility] MMR Unknown Completed [facility] Poliovirus, Live, Unknown Completed [facility] of Oral, Trivalent [facility] [place] Poliovirus, Live, Unknown Completed [facility] of Oral, Trivalent [facility] Poliovirus, Live, Unknown Completed [facility] of Oral, Trivalent [facility] Poliovirus, Live, Unknown Completed [facility] of Oral, Trivalent [facility] Tetanus/Diptheria Unknown Completed Univers [facility] TDAP Unknown Completed [facility] Varicella Unknown Completed [facility] (varivax)(chicken [place] [facility] pox) Branch Varicella Unknown Completed [facility] (varivax)(chicken [place] [facility] pox) [place] SARS-COV-2 COVID-19 Unknown Completed Unive rsity of PFIZER VACCINE [facility] SARS-COV-2 COVID-19 Unknown Completed Unive rsity of PFIZER VACCINE [facility] DTP Unknown Completed [facility] DTP Unknown Completed [facility] DTP Unknown Completed [facility] DTP Unknown Completed [facility] DTaP, Unspecified Unknown Completed [facility] of Formulation [facility] Influenza Virus Unknown Completed [facility]it y of Vaccine Quad .5 mL [facility] 6+ MO Branch (FLUZONE/FLULAVAL/FL UARIX) Hep B, Unspecified Unknown Completed Univer sity of Formulation [facility] HEPATITIS A Unknown Completed [facility] HEPATITIS A Unknown Completed [facility] Hep B, Unspecified Unknown Completed Univer [facility]ity of Formulation [facility] Hep B, Adol or Pedi Unknown Completed Unive rsity of Dosage [facility] Hep B, Adol or Pedi Unknown Completed Unive rsity of Dosage [facility] Hep B, Adol or Pedi Unknown Completed Unive rsity of Dosage [facility] Heamophilus Unknown Completed [facility] Influenza [facility] Heamophilus Unknown Completed [facility] Influenza Former[facility] Heamophilus Unknown Completed [facility] Influenza Formerly [facility] Heamophilus Unknown Completed [facility] Influenza Formerly [facility] Hib-HbOC Unknown Completed [facility] Hib-HbOC Unknown Completed [facility] Hib-HbOC Unknown Completed [facility] Hib-HbOC Unknown Completed [facility] HPV Unknown Completed [facility] HPV Unknown Completed [facility] HPV Unknown Completed [facility] Meningococcal Unknown Completed [facility] (groups A, C, Y and Branc h W-135) conjugate vaccine (MCV4P) MMR Unknown Completed [facility] MMR Unknown Completed [facility] Poliovirus, Live, Unknown Completed Univers [facility]y of Oral, Trivalent [facility] Poliovirus, Live, Unknown Completed Univers [facility] of Oral, Trivalent [facility] Poliovirus, Live, Unknown Completed Univers [facility]y of Oral, Trivalent [facility] Poliovirus, Live, Unknown Completed Univers [facility]y of Oral, Trivalent [facility] Tetanus/Diptheria Unknown Completed Univers ity [facility] TDAP Unknown Completed [facility] Varicella Unknown Completed [facility] (varivax)(chicken [place] [facility] pox) Branch Varicella Unknown Completed University (varivax)(chicken [place] [facility] pox[place] Branch SARS-COV-2 COVID-19 Unknown Completed Unive rsity of PFIZER VACCINE [facility] SARS-COV-2 COVID-19 Unknown Completed Unive rsity of PFIZER VACCINE [facility] DTP Unknown Completed [facility] DTP Unknown Completed [facility] DTP Unknown Completed [facility] DTP Unknown Completed [facility] DTaP, Unspecified Unknown Completed Univers ity of Formulation [facility] Influenza Virus Unknown Completed Universit y of Vaccine Quad .5 mL [facility] 6+ [place] [facility] (FLUZONE/FLULAVAL/FL UARIX) Hep B, Unspecified Unknown Completed Univer sity of Formulation [facility] HEPATITIS A Unknown Completed [facility] HEPATITIS A Unknown Completed [facility] Hep B, Unspecified Unknown Completed Univer [facility]ity of Formulation [facility] Hep B, Adol or Pedi Unknown Completed Unive rsity of Dosage [facility] Hep B, Adol or Pedi Unknown Completed [facility]ive rsity of Dosage [facility] Hep B, Adol or Pedi Unknown Completed Unive rsity of Dosage [facility] Heamophilus Unknown Completed [facility] Influenza B [facility] Heamophilus Unknown Completed [facility] Influenza B [facility] Heamophilus Unknown Completed [facility] Influenza B [facility] Heamophilus Unknown Completed [facility] Influenza [facility] Hib-HbOC Unknown Completed [facility] Hib-HbOC Unknown Completed [facility] Hib-HbOC Unknown Completed [facility] Hib-HbOC Unknown Completed [facility] HPV Unknown Completed [facility] HPV Unknown Completed [facility] HPV Unknown Completed [facility] Meningococcal Unknown Completed [facility] (groups A, C, Y and Branc h W-135) conjugate vaccine (MCV4P) MMR Unknown Completed [facility] MMR Unknown Completed [facility] Poliovirus, Live, Unknown Completed Univers ity of Oral, Trivalent [facility] Poliovirus, Live, Unknown Completed Univers [facility]y of Oral, Trivalent [facility] Poliovirus, Live, Unknown Completed Univers [facility]y of Oral, Trivalent [facility] Poliovirus, Live, Unknown Completed Univers [facility]y of Oral, Trivalent [facility] Tetanus/Diptheria Unknown Completed Univers [facility]y [facility] TDAP Unknown Completed [facility] Varicella Unknown Completed [facility] (varivax)(chicken [place] [facility] pox) Branch Varicella Unknown Completed [facility] (varivax)(chicken [place] [facility] pox) Branch SARS-COV-2 COVID-19 Unknown Completed Unive rsity of PFIZER VACCINE [facility] SARS-COV-2 COVID-19 Unknown Completed Unive rsity of PFIZER VACCINE [facility] DTP Unknown Completed [facility] DTP Unknown Completed [facility] DTP Unknown Completed [facility] DTP Unknown Completed [facility] DTaP, Unspecified Unknown Completed Univers ity of Formulation [facility] Influenza Virus Unknown Completed Universit y of Vaccine Quad .5 mL [facility] 6+ [place] [facility] (FLUZONE/FLULAVAL/FL UARIX) Hep B, Unspecified Unknown Completed Univer sity of Formulation [facility] HEPATITIS A Unknown Completed [facility] HEPATITIS A Unknown Completed [facility] Hep B, Unspecified Unknown Completed Univer [facility]ity of Formulation [facility] Hep B, Adol or Pedi Unknown Completed Unive rsity of Dosage [facility] Hep B, Adol or Pedi Unknown Completed [facility]ive [facility]ity of Dosage [facility] Hep B, Adol or Pedi Unknown Completed Unive rsity of Dosage [facility] Heamophilus Unknown Completed [facility] Influenza [facility] Heamophilus Unknown Completed [facility] Influenza B [facility] Heamophilus Unknown Completed [facility] Influenza B [facility] Heamophilus Unknown Completed [facility] Influenza [facility]ly [facility] Hib-HbOC Unknown Completed [facility] Hib-HbOC Unknown Completed [facility] Hib-HbOC Unknown Completed [facility] Hib-HbOC Unknown Completed [facility] HPV Unknown Completed [facility] HPV Unknown Completed [facility] HPV Unknown Completed [facility] Meningococcal Unknown Completed [facility] (groups A, C, Y and Branc h W-135) conjugate vaccine (MCV4P) MMR Unknown Completed [facility] MMR Unknown Completed [facility] Poliovirus, Live, Unknown Completed Univers [facility]y of Oral, Trivalent [facility] Poliovirus, Live, Unknown Completed [facility]y of Oral, Trivalent [facility] Poliovirus, Live, Unknown Completed [facility]y of Oral, Trivalent [facility] Poliovirus, Live, Unknown Completed Univers ity of Oral, Trivalent [facility] Tetanus/Diptheria Unknown Completed Univers [facility] TDAP Unknown Completed [facility] Varicella Unknown Completed [facility] (varivax)(chicken [place] [facility] pox) Branch Varicella Unknown Completed [facility] (varivax)(chicken [place] [facility] pox) Branch SARS-COV-2 COVID-19 Unknown Completed Unive rsity of PFIZER VACCINE [facility] SARS-COV-2 COVID-19 Unknown Completed Unive rsity of PFIZER VACCINE [facility] DTP Unknown Completed [facility] DTP Unknown Completed [facility] DTP Unknown Completed [facility] DTP Unknown Completed [facility] DTaP, Unspecified Unknown Completed Univers ity of Formulation [facility] Influenza Virus Unknown Completed [facility]it y of Vaccine Quad .5 mL [facility] 6+ [place] [facility] (FLUZONE/FLULAVAL/FL UARIX) Hep B, Unspecified Unknown Completed Univer sity of Formulation [facility] HEPATITIS A Unknown Completed [facility] HEPATITIS A Unknown Completed [facility] Hep B, Unspecified Unknown Completed [facility]iver [facility]ity of Formulation [facility] Hep B, Adol or Pedi Unknown Completed Unive rsity of Dosage [facility] Hep B, Adol or Pedi Unknown Completed [facility]ive rsity of Dosage [facility] Hep B, Adol or Pedi Unknown Completed Unive rsity of Dosage [facility] Heamophilus Unknown Completed [facility] Influenza B [facility] Heamophilus Unknown Completed [facility] Influenza B [facility] Heamophilus Unknown Completed [facility] Influenza B [facility] Heamophilus Unknown Completed [facility] Influenza B [facility] Hib-HbOC Unknown Completed [facility] Hib-HbOC Unknown Completed [facility] Hib-HbOC Unknown Completed [facility] Hib-HbOC Unknown Completed [facility] HPV Unknown Completed [facility] HPV Unknown Completed [facility] HPV Unknown Completed [facility] Meningococcal Unknown Completed [facility] (groups A, C, Y and Branc h W-135) conjugate vaccine (MCV4P) MMR Unknown Completed [facility] MMR Unknown Completed [facility] Poliovirus, Live, Unknown Completed Univers [facility]y of Oral, Trivalent [facility] Poliovirus, Live, Unknown Completed Univers ity of Oral, Trivalent [facility] Poliovirus, Live, Unknown Completed [facility] of Oral, Trivalent [facility] Poliovirus, Live, Unknown Completed Univers ity of Oral, Trivalent [facility] Tetanus/Diptheria Unknown Completed Univers [facility] TDAP Unknown Completed [facility] Varicella Unknown Completed University of (varivax)(chicken [place] [facility] pox) Branch Varicella Unknown Completed [facility] (varivax)(chicken [place] [facility] pox) Branch SARS-COV-2 COVID-19 Unknown Completed Unive rsity of PFIZER VACCINE [facility] SARS-COV-2 COVID-19 Unknown Completed Unive rsity of PFIZER VACCINE [facility] DTP Unknown Completed [facility] DTP Unknown Completed [facility] DTP Unknown Completed [facility] DTP Unknown Completed [facility] DTaP, Unspecified Unknown Completed [facility] of Formulation [facility] Influenza Virus Unknown Completed [facility] of Vaccine Quad .5 mL [facility] 6+ [place] [facility] (FLUZONE/FLULAVAL/FL UARIX) Hep B, Unspecified Unknown Completed Univer sity of Formulation [facility] HEPATITIS A Unknown Completed [facility] HEPATITIS A Unknown Completed [facility] Hep B, Unspecified Unknown Completed Univer [facility]ity of Formulation [facility] Hep B, Adol or Pedi Unknown Completed Unive rsity of Dosage [facility] Hep B, Adol or Pedi Unknown Completed [facility]ive rsity of Dosage [facility] Hep B, Adol or Pedi Unknown Completed Unive rsity of Dosage [facility] Heamophilus Unknown Completed [facility] Influenza B [facility] Heamophilus Unknown Completed [facility] Influenza B [facility] Heamophilus Unknown Completed [facility] Influenza B [facility] Heamophilus Unknown Completed [facility] Hib-HbOC Unknown Completed [facility] Hib-HbOC Unknown Completed [facility] Hib-HbOC Unknown Completed [facility] Hib-HbOC Unknown Completed [facility] HPV Unknown Completed [facility] HPV Unknown Completed [facility] HPV Unknown Completed [facility] Meningococcal Unknown Completed [facility] Polysaccharide [facility] (groups A, C, Y and Branc h W-135) conjugate vaccine (MCV4P) MMR Unknown Completed [facility] MMR Unknown Completed [facility] Poliovirus, Live, Unknown Completed Univers [facility] of Oral, Trivalent [facility] Poliovirus, Live, Unknown Completed Univers [facility]y of Oral, Trivalent [facility] Poliovirus, Live, Unknown Completed [facility] ity of Oral, Trivalent [facility] Poliovirus, Live, Unknown Completed Univers ity of Oral, Trivalent [facility] Tetanus/Diptheria Unknown Completed [facility] TDAP Unknown Completed [facility] Varicella Unknown Completed [facility] (varivax)(chicken [place] [facility] pox) Branch Varicella Unknown Completed [facility] (varivax)(chicken [place] [facility] pox) Branch SARS-COV-2 COVID-19 Unknown Completed Unive rsity of PFIZER VACCINE [facility] SARS-COV-2 COVID-19 Unknown Completed Unive rsity of PFIZER VACCINE [facility] DTP Unknown Completed [facility] DTP Unknown Completed [facility] DTP Unknown Completed [facility] DTP Unknown Completed [facility] DTaP, Unspecified Unknown Completed [facility]y of Formulation [facility] Influenza Virus Unknown Completed [facility]it y of Vaccine Quad .5 mL [facility] 6+ [place] [facility] (FLUZONE/FLULAVAL/FL UARIX) Hep B, Unspecified Unknown Completed Univer sity of Formulation [facility] HEPATITIS A Unknown Completed [facility] HEPATITIS A Unknown Completed [facility] Hep B, Unspecified Unknown Completed [facility]iver [facility]ity of Formulation [facility] Hep B, Adol or Pedi Unknown Completed Unive rsity of Dosage [facility] Hep B, Adol or Pedi Unknown Completed Unive rsity of Dosage [facility] Hep B, Adol or Pedi Unknown Completed Unive rsity of Dosage [facility] Heamophilus Unknown Completed [facility] Influenza [facility] Heamophilus Unknown Completed [facility] Influenza [facility] Heamophilus Unknown Completed [facility] Influenza B [facility] Heamophilus Unknown Completed [facility] Hib-HbOC Unknown Completed [facility] Hib-HbOC Unknown Completed [facility] Hib-HbOC Unknown Completed [facility] Hib-HbOC Unknown Completed [facility] HPV Unknown Completed [facility] HPV Unknown Completed [facility] HPV Unknown Completed [facility] Meningococcal Unknown Completed [facility] (groups A, C, Y and Branc h W-135) conjugate vaccine (MCV4P) MMR Unknown Completed [facility] MMR Unknown Completed [facility] Poliovirus, Live, Unknown Completed Univers [facility] of Oral, Trivalent [facility] Poliovirus, Live, Unknown Completed [facility] of Oral, Trivalent [facility] Poliovirus, Live, Unknown Completed [facility] ity of Oral, Trivalent [facility] Poliovirus, Live, Unknown Completed [facility]y of Oral, Trivalent [facility] Tetanus/Diptheria Unknown Completed Univers [facility] TDAP Unknown Completed [facility] Varicella Unknown Completed [facility] (varivax)(chicken [place] [facility] pox) [place] Varicella Unknown Completed [facility] (varivax)(chicken [place] [facility] pox) Branch PFIZER [...] 2023-07-05 114 mm[Hg] University of pressure 17:46:17 [facility] Diastolic blood 2023-07-05 94 mm[Hg] University o f pressure 17:46:17 [facility] Heart rate 2023-07-05 93 /min University of 17:46:17 [facility] Body temperature 2023-07-05 37 Alisha University of 17:46:17 [facility] Respiratory rate 2023-07-05 16 /min University of 17:46:17 [facility] Body height 2023-07-05 160 cm University of 17:44:00 [facility] Body weight 2023-07-05 67.586 kg University of 17:44:00 [facility] BMI 2023-07-05 26.39 kg/m2 University of 17:44:00 [facility] Oxygen saturation 2023-07-05 100 /min [facility] in Arterial blood 17:44:00 [facility] by Pulse oximetry [place] Systolic blood 2023-07-01 116 mm[Hg] University of pressure 16:23:00 [facility] Diastolic blood 2023-07-01 76 mm[Hg] University o f pressure 16:23:00 [facility] Heart rate 2023-07-01 66 /min University of 16:23:00 [facility] Body temperature 2023-07-01 36.28 Alisha University of 16:23:00 [facility] Respiratory rate 2023-07-01 18 /min University of 16:23:00 [facility] Body height 2023-07-01 160 cm University of 16:23:00 [facility] Body weight 2023-07-01 70.852 kg University of 16:23:00 [facility] BMI 2023-07-01 27.67 kg/m2 University of 16:23:00 [facility] Oxygen saturation 2023-07-01 100 /min University of in Arterial blood 16:23:00 [place] [facility] by Pulse oximetry [facility] Systolic blood 2023-06-29 120 mm[Hg] University of pressure 18:40:00 [facility] Diastolic blood 2023-06-29 82 mm[Hg] University o f pressure 18:40:00 [facility] Heart rate 2023-06-29 81 /min University of 18:40:00 [facility] Body temperature 2023-06-29 36.5 Alisha University of 18:40:00 [facility] Respiratory rate 2023-06-29 18 /min University of 18:40:00 [facility] Body height 2023-06-29 160 cm University of 18:40:00 [facility] Body weight 2023-06-29 67.586 kg University of 18:40:00 [facility] BMI 2023-06-29 26.39 kg/m2 University of 18:40:00 [facility] Oxygen saturation 2023-06-29 100 /min University of in Arterial blood 18:40:00 [facility] by Pulse oximetry Branch Systolic blood 2023-06-10 133 mm[Hg] University of pressure 15:38:00 [facility] Diastolic blood 2023-06-10 78 mm[Hg] University o f pressure 15:38:00 [facility] Heart rate 2023-06-10 90 /min University of 15:38:00 [facility] Body height 2023-06-10 160 cm University of 15:38:00 [facility] Body weight 2023-06-10 69.627 kg University of 15:38:00 [facility] BMI 2023-06-10 27.19 kg/m2 University of 15:38:00 [facility] Oxygen saturation 2023-06-10 99 /min University of in Arterial blood 15:38:00 [facility] shanice by Pulse oximetry Branch Systolic blood 2023-03-02 133 mm[Hg] University of pressure 17:25:00 [facility] Diastolic blood 2023-03-02 79 mm[Hg] University o f pressure 17:25:00 [facility] Heart rate 2023-03-02 86 /min University of 17:25:00 [facility] Body temperature 2023-03-02 36.67 Alisha University of 17:25:00 [facility] Respiratory rate 2023-03-02 16 /min University of 17:25:00 [facility] Body height 2023-03-02 160 cm University of 17:25:00 [facility] Body weight 2023-03-02 69.627 kg University of 17:25:00 [facility] BMI 2023-03-02 27.19 kg/m2 University of 17:25:00 [facility] Oxygen saturation 2023-03-02 97 /min University of in Arterial blood 17:25:00 [facility] shanice by Pulse oximetry Branch Systolic blood 2023-01-21 156 mm[Hg] University of pressure 23:13:33 [facility] Diastolic blood 2023-01-21 100 mm[Hg] University o f pressure 23:13:33 [facility] Heart rate 2023-01-21 88 /min University of 23:13:33 [facility] Respiratory rate 2023-01-21 20 /min University of 23:13:33 [facility] Oxygen saturation 2023-01-21 100 /min University of in Arterial blood 23:13:33 [facility] by Pulse oximetry Branch Body height 2023-01-21 160 cm University of 18:44:00 [facility] Body weight 2023-01-21 69.854 kg University of 18:44:00 [facility] BMI 2023-01-21 27.28 kg/m2 University of 18:44:00 [facility] Body temperature 2023-01-21 37.11 Alisha University of 18:43:00 [facility] Systolic blood 2023-01-15 121 mm[Hg] University of pressure 18:01:00 [facility] Diastolic blood 2023-01-15 81 mm[Hg] University o f pressure 18:01:00 [facility] Heart rate 2023-01-15 83 /min University of 18:01:00 [facility] Respiratory rate 2023-01-15 16 /min University of 18:01:00 [facility] Oxygen saturation 2023-01-15 97 /min University of in Arterial blood 18:01:00 [facility] shanice by Pulse oximetry Branch Body temperature 2023-01-15 36.89 Alisha University of 14:55:07 [facility] Body weight 2023-01-15 68.04 kg University of 13:47:00 [facility] BMI 2023-01-15 26.57 kg/m2 University of 13:47:00 [facility] Systolic blood 2023-01-15 131 mm[Hg] University of pressure 10:13:00 [facility] Diastolic blood 2023-01-15 83 mm[Hg] University o f pressure 10:13:00 [facility] Heart rate 2023-01-15 104 /min University of 10:13:00 [facility] Body temperature 2023-01-15 36.94 Alisha University of 10:13:00 [facility] Respiratory rate 2023-01-15 21 /min University of 10:13:00 [facility] Body height 2023-01-15 160 cm University of 10:13:00 [facility] Body weight 2023-01-15 68.04 kg University of 10:13:00 [facility] BMI 2023-01-15 26.57 kg/m2 University of 10:13:00 [facility] Oxygen saturation 2023-01-15 100 /min University of in Arterial blood 10:13:00 [facility] shanice by Pulse oximetry Branch Systolic blood 2022-12-31 128 mm[Hg] University of pressure 05:09:00 [facility] Diastolic blood 2022-12-31 79 mm[Hg] University o f pressure 05:09:00 [facility] Heart rate 2022-12-31 71 /min University of 05:09:00 [facility] Body temperature 2022-12-31 36.78 Alisha University [facility] 05:09:00 [facility] Respiratory rate 2022-12-31 16 /min University of 05:09:00 [facility] Body height 2022-12-31 160 cm University of 05:09:00 [facility] Body weight 2022-12-31 67.586 kg University of 05:09:00 [facility] BMI 2022-12-31 26.39 kg/m2 University of 05:09:00 [facility] Oxygen saturation 2022-12-31 100 /min University of in Arterial blood 05:09:00 [place] [facility] Pulse oximetry Branch Systolic blood 2022-12-22 132 mm[Hg] University of pressure 13:18:00 [facility] Diastolic blood 2022-12-22 92 mm[Hg] University o f pressure 13:18:00 [facility] Heart rate 2022-12-22 78 /min University of 13:18:00 [facility] Respiratory rate 2022-12-22 18 /min University of 13:18:00 [facility] Body height 2022-12-22 160 cm University of 13:18:00 [facility] Body weight 2022-12-22 69.4 kg University of 13:18: [facility] BMI 2022-12-22 27.10 kg/m2 University of 13:18:00 [facility] Systolic blood 2022-12-19 102 mm[Hg] University of pressure 10:00:00 [facility] Diastolic blood 2022-12-19 60 mm[Hg] University o f pressure 10:00:00 [facility] Heart rate 2022-12-19 85 /min University of 10:00:00 [facility] Respiratory rate 2022-12-19 13 /min University of 10:00:00 [facility] Oxygen saturation 2022-12-19 96 /min University of in Arterial blood 10:00:00 [facility] shanice by Pulse oximetry Branch Body temperature 2022-12-19 36.28 Alisha University of 07:30:00 [facility] Body height 2022-12-19 160 cm University of 07:30:00 [facility] Body weight 2022-12-19 67.132 kg University of 07:30:00 [facility] BMI 2022-12-19 26.22 kg/m2 University of 07:30:00 [facility] Systolic blood 2022-12-15 125 mm[Hg] University of pressure 15:48:00 [facility] Diastolic blood 2022-12-15 77 mm[Hg] University o f pressure 15:48:00 [facility] Heart rate 2022-12-15 75 /min University of 15:48:00 [facility] Body height 2022-12-15 160 cm University of 15:48:00 [facility] Body weight 2022-12-15 68.448 kg University of 15:48:00 [facility] BMI 2022-12-15 26.73 kg/m2 University of 15:48:00 [facility] Oxygen saturation 2022-12-15 98 /min University of in Arterial blood 15:48:00 [place] [facility] by Pulse oximetry Branch Systolic blood 2022-12-14 132 mm[Hg] University of pressure 08:04:00 [facility] Branch Diastolic blood 2022-12-14 87 mm[Hg] University o f pressure 08:04:00 [facility] Heart rate 2022-12-14 83 /min University of 08:04:00 [facility] Body temperature 2022-12-14 36.67 Alisha University of 08:04:00 [facility] Respiratory rate 2022-12-14 20 /min University of 08:04:00 [facility] Body height 2022-12-14 160 cm University of 08:04: [facility] Body weight 2022-12-14 67.132 kg University of 08:04:00 [facility] BMI 2022-12-14 26.22 kg/m2 University of 08:04:00 [facility] Oxygen saturation 2022-12-14 97 /min [facility] in Arterial blood 08:04: [facility] by Pulse oximetry Branch Systolic blood 2022-11-03 143 mm[Hg] University of pressure 17:45:00 [facility] Diastolic blood 2022-11-03 89 mm[Hg] University o f pressure 17:45:00 [facility] Heart rate 2022-11-03 89 /min University of 17:45:00 [facility] Respiratory rate 2022-11-03 16 /min University of 17:45:00 [facility] Oxygen saturation 2022-11-03 99 /min [facility] in Arterial blood 17:45:00 [facility] by Pulse oximetry [place] Body temperature 2022-11-03 36.61 Alisha University of 14:13:00 [facility] Body height 2022-11-03 160 cm University of 14:13:00 [facility] Body weight 2022-11-03 68.04 kg University of 14:13:00 [facility] BMI 2022-11-03 26.57 kg/m2 University of 14:13:00 [facility] Systolic blood 2022-10-28 115 mm[Hg] University of pressure 21:02:00 [facility] Diastolic blood 2022-10-28 69 mm[Hg] University o f pressure 21:02:00 [facility] Heart rate 2022-10-28 93 /min University of 21:02:00 [facility] Body temperature 2022-10-28 36.89 Alisha University of 21:02:00 [facility] Body height 2022-10-28 160 cm University of 21:02:00 [facility] Body weight 2022-10-28 70.308 kg University of 21:02:00 [facility] BMI 2022-10-28 27.46 kg/m2 University of 21:02:00 [facility] Oxygen saturation 2022-10-28 100 /min University of in Arterial blood 21:02:00 [facility] shanice by Pulse oximetry Branch Systolic blood 2022-10-13 133 mm[Hg] University of pressure 07:58:00 [facility] Diastolic blood 2022-10-13 72 mm[Hg] University o f pressure 07:58:00 [facility] Heart rate 2022-10-13 109 /min University 07:58:00 [facility] Body temperature 2022-10-13 36.78 Alisha [facility] 07:58:00 [facility] Respiratory rate 2022-10-13 16 /min [facility] of 07:58:00 [facility] Body weight 2022-10-13 67.132 kg [facility] 07:58:00 [facility] BMI 2022-10-13 26.22 kg/m2 University of 07:58:00 [facility] Oxygen saturation 2022-10-13 99 /min University of in Arterial blood 07:58:00 [facility] by Pulse oximetry Branch Systolic blood 2022-10-10 120 mm[Hg] University of pressure 00:44:00 [facility] Diastolic blood 2022-10-10 82 mm[Hg] University o f pressure 00:44:00 [facility] Heart rate 2022-10-10 110 /min University 00:44:00 [facility] Body temperature 2022-10-10 36.33 Alisha University 00:44:00 [facility] Respiratory rate 2022-10-10 18 /min University of 00:44:00 [facility] Body height 2022-10-10 160 cm University of 00:44:00 [facility] Body weight 2022-10-10 67.132 kg University of 00:44:00 [facility] BMI 2022-10-10 26.22 kg/m2 University of 00:44:00 [facility] Oxygen saturation 2022-10-10 99 /min University of in Arterial blood 00:44:00 [facility] by Pulse oximetry Branch Systolic blood 2022-09-10 165 mm[Hg] University of pressure 00:13:00 [facility] Diastolic blood 2022-09-10 99 mm[Hg] University o f pressure 00:13:00 [facility] Heart rate 2022-09-10 125 /min University of 00:13:00 [facility] Body temperature 2022-09-10 36.61 Alisha [facility] of 00:13:00 [facility] Respiratory rate 2022-09-10 20 /min University 00:13:00 [facility] Body weight 2022-09-10 65.772 kg University 00:13:00 [facility] BMI 2022-09-10 25.69 kg/m2 University 00:13:00 [facility] Oxygen saturation 2022-09-10 99 /min University of in Arterial blood 00:13:00 [facility] shanice by Pulse oximetry Branch Systolic blood 2022-08-18 134 mm[Hg] University of pressure 22:36:00 [facility] Diastolic blood 2022-08-18 86 mm[Hg] University o f pressure 22:36:00 [facility] Heart rate 2022-08-18 100 /min University 22:36:00 [facility] Body temperature 2022-08-18 37.11 Alisha University 22:36:00 [facility] Respiratory rate 2022-08-18 20 /min University 22:36:00 [facility] Body height 2022-08-18 160 cm University of 22:36:00 [facility] Body weight 2022-08-18 67.132 kg University of 22:36:00 [facility] BMI 2022-08-18 26.22 kg/m2 University of 22:36:00 [facility] Oxygen saturation 2022-08-18 100 /min University of in Arterial blood 22:36:00 [facility] shanice by Pulse oximetry Branch Systolic blood 2022-01-20 123 mm[Hg] [facility] pressure 18:11:00 [facility] Diastolic blood 2022-01-20 85 mm[Hg] [facility] pressure 18:11:00 Hospital Heart rate 2022-01-20 88 /min [facility] 18:11:00 Hospital Body temperature 2022-01-20 36.28 Alisha [facility] 18:11:00 Hospital Respiratory rate 2022-01-20 20 /min [facility] 18:11:00 [facility] Body height 2022-01-20 160 cm [facility] 18:11:00 Hospital Body weight 2022-01-20 66.225 kg [facility] 18:11:00 Hospital BMI 2022-01-20 25.86 kg/m2 [facility] 18:11:00 Hospital Oxygen saturation 2022-01-20 99 /min [facility] in Arterial blood 18:11:00 Hospital by Pulse [...] BP Systolic 2019-06-28 130 mm[Hg] Location: [facility]; [facility] 16:14:00 Position: Sitting BP Diastolic 2019-06-28 82 mm[Hg] Location: [facility]; [facility] 16:14:00 Position: Sitting Height 2019-06-28 67 [...] Source Performed CBC WITH DIFF 2023-07-05 18:17:00 Lazarus Donta [facility] POCT TEST 2023-07-05 18:05:00 Donta Qiu [facility] CONSENT/REFUSAL FOR 2023-07-05 17:29:05 Doctor Unassigned, No Un [facility] DIAGNOSIS AND TREATMENT Name [facility] Branch CT ABDOMEN PELVIS W 2023-01-21 21:07:22 Joe Abad [facility] CONTRAST [facility] POCT TEST 2023-01-21 19:34:00 Gutierrez Moncada [facility] LIPASE 2023-01-21 19:32:00 Gutierrez Moncada [facility] TROPONIN I 2023-01-21 19:32:00 Joe Abad [facility] COMP. METABOLIC PANEL 2023-01-21 19:32:00 Gutierrez Moncada [facility] ([id number]) Medical Branch CBC WITH DIFF 2023-01-21 19:32:00 Gutierrez Moncada [facility] Medical Branch URINALYSIS 2023-01-21 19:32:00 Gutierrez Moncada [facility] Medical Branch CONSENT/REFUSAL FOR 2023-01-21 18:36:13 Doctor Unassigned, No [facility] [place] [facility] Name Medical Branch LIPASE 2023-01-15 14:47:00 Brant Lal [facility] COMP. METABOLIC PANEL 2023-01-15 14:47:00 Brant Lal [facility] ([id number]) Medical Branch CBC WITH DIFF 2023-01-15 14:47:00 Brant Lal [facility] CONSENT/REFUSAL FOR 2023-01-15 13:41:26 Doctor Unassigned, No [facility] [place] [facility] TREATMENT Name Medical Branch CONSENT/REFUSAL FOR 2023-01-15 10:06:16 Doctor Unassigned, No [facility] [place] DIAGNOSIS AND TREATMENT Name Medical Branch EXTERNAL PROVIDER 2023-01-07 05:01:00 Doctor Unassigned, No Univ ers[facility] RECORDS Name Medical Branch EXTERNAL PROVIDER 2023-01-04 05:01:00 Doctor Unassigned, No [facility] [place] RECORDS Name Medical Branch CONSENT/REFUSAL FOR 2022-12-31 05:04:15 Doctor Unassigned, No [facility] [place] DIAGNOSIS AND TREATMENT Name Medical Branch CT ANGIOGRAPHY 2022-12-30 17:15:00 Amrit Ma [facility] CORONARIES WITHOUT Medical Bran h CARDIAC CALCIUM SCORING HB CREATININE 2022-12-30 16:24:00 Amrit Ma [facility] SERUM/BLOOD FOR IMAGING Medical Branch CONSENT/REFUSAL FOR 2022-12-30 15:17:01 Doctor Unassigned, No [facility] [place] DIAGNOSIS AND TREATMENT Name Medical Branch EXTERNAL PROVIDER 2022-12-29 05:01:00 Doctor Unassigned, No Univ ersity [facility] RECORDS Name Medical Branch AUTHORIZATION TO RELEASE 2022-12-21 05:01:00 Doctor Unassigned, No [facility] TO [facility] Name Medical Branch CT ANGIOGRAM CHEST 2022-12-19 09:28:16 Miladys Medina [facility] TROPONIN I 2022-12-19 08:40:00 Miladys Medina [facility] D-DIMER 2022-12-19 08:40:00 Miladys Medina [facility] CONSENT/REFUSAL FOR 2022-12-19 07:30:10 [facility] Name [facility] D-DIMER 2022-12-14 10:47:00 Miladys Medina [facility] TROPONIN I 2022-12-14 10:16:00 Miladys Medina [facility] LIPASE 2022-12-14 08:31:00 Miladys Medina [facility] TROPONIN I 2022-12-14 08:31:00 Miladys Medina [facility] COMP. METABOLIC PANEL 2022-12-14 08:31:00 Miladys Medina [facility] ([id number]) [facility] CBC WITH DIFF 2022-12-14 08:31:00 Miladys Medina [facility] THYROID STIMULATING 2022-12-14 08:31:00 Amrit Ma [facility] HORMONE [facility] NOTICE OF PRIVACY 2022-12-14 07:50:02 Doctor Unassigned, No [facility] PRACTICES [facility] CONSENT/REFUSAL FOR 2022-12-14 07:49:31 [facility] URINALYSIS 2022-11-03 15:27:00 Gaurang Dotson [facility] o f [facility] URINE DRUG (IMMUNOASSAY) 2022-11-03 15:27:00 Gaurang Dotson [facility] SCREEN W/O REFLEX TEST, SERUM 2022-11-03 14:38:00 Gaurang Dotson [facility] COMP. METABOLIC PANEL 2022-11-03 14:38:00 Gaurang Dotson [facility] ([id number]) Medical Branch CBC WITH DIFF 2022-11-03 14:38:00 Gaurang Dotson Ruth o [facility] Medical Branch D-DIMER 2022-11-03 14:38:00 Gaurang Dotson [facility] CONSENT/REFUSAL FOR 2022-11-03 14:04:36 Doctor Unassigned, [...] Branch MRI LUMBAR SPINE WO 2022-10-07 00:35:00 [facility] CONTRAST MRI CERVICAL SPINE WO 2022-10-07 00:22:00 [facility] CONTRAST CONSENT/REFUSAL FOR 2022-09-10 00:07:30 Doctor Unassigned, No [facility] [place] DIAGNOSIS AND TREATMENT Name Medical Branch CONSENT/REFUSAL FOR 2022-08-18 22:20:24 Doctor Unassigned, No [facility] [place] DIAGNOSIS AND TREATMENT Name Medical Branch CT SPINE EXTERNAL STUDY 2021-11-28 20:02:53 [facility] CT SPINE EXTERNAL STUDY 2021-11-28 19:57:48 [facility] CT SPINE EXTERNAL STUDY 2021-11-28 19:52:18 [facility] REFERRAL- 2021-11-21 05:01:00 Doctor Unassigned, No [facility] [place] REQUEST/RESPONSE Name Medical Branch MRI SPINE EXTERNAL STUDY 2021-10-09 18:17:21 [facility] [QL] CBC (INCLUDES 2020-02-16 00:00:00 [facility] DIFF[facility]PLT[facility] EMB 2020-02-14 00:00:00 [facility] VPIII 2020-02-14 00:00:00 [facility] [...] [facility] Transvaginal and Pelvic Doppler [id number] [facility] of [facility] surgery History of [facility] section low transverse Plan of Care Planned Activity Planned Date Details Comments Source Future Scheduled 2023-07-01 Pneumococcal Vaccine: [facility] Test 21:11:54 Pediatrics (0 to 5 Years) and At-Risk Patients (6 to 64 Years) (1 - PCV) [code = Pneumococcal Vaccine: Pediatrics (0 to 5 Years) and At-Risk Patients (6 to 64 Years) (1 - PCV)] Future Scheduled 2023-07-01 Hepatitis C screening [facility] Test 21:11:54 (procedure) [code = 731519344] Future Scheduled 2023-07-01 [facility] Test 21:11:54 malignant neoplasm of cervix (procedure) [code = 892275591] Future Scheduled 2023-07-01 COVID-19 VACCINE (3 - [facility] Test 21:11:54 season) [code = COVID-19 VACCINE (3 - season)] Future Scheduled 2023-07-01 INFLUENZA VACCINE (#1) [facility] Test 21:11:54 [code = INFLUENZA VACCINE (#1)] Future Scheduled 2023-07-01 Pneumococcal Vaccine: [facility] Test 21:11:54 Pediatrics (0 to 5 Years) and At-Risk Patients (6 to 64 Years) (1 - PCV) [code = Pneumococcal Vaccine: Pediatrics (0 to 5 Years) and At-Risk Patients (6 to 64 Years) (1 - PCV)] Future Scheduled 2023-07-01 Hepatitis C screening [facility] Test 21:11:54 (procedure) [code = 726370006] Future Scheduled 2023-07-01 [facility] Test 21:11:54 malignant neoplasm of cervix (procedure) [code = 364035108] Future Scheduled 2023-07-01 COVID-19 VACCINE (3 - [facility] Test 21:11:54 season) [code = COVID-19 VACCINE ( season)] Future Scheduled 2023-07-01 INFLUENZA VACCINE (#1) [facility] Test 21:11:54 [code = INFLUENZA VACCINE (#1)] Future Scheduled 2023-07-01 Pneumococcal Vaccine: [facility] Test 21:11:54 Pediatrics (0 to 5 Years) and At-Risk Patients (6 to 64 Years) (1 - PCV) [code = Pneumococcal Vaccine: Pediatrics (0 to 5 Years) and At-Risk Patients (6 to 64 Years) (1 - PCV)] Future Scheduled 2023-07-01 Hepatitis C screening [facility] Test 21:11:54 (procedure) [code = 662013378] Future Scheduled 2023-07-01 [facility] Test 21:11:54 malignant neoplasm of cervix (procedure) [code = 722403967] Future Scheduled 2023-07-01 COVID-19 VACCINE (3 - [facility] Test 21:11:54 season) [code = COVID-19 VACCINE ( season)] Future Scheduled 2023-07-01 INFLUENZA VACCINE (#1) [facility] Test 21:11:54 [code = INFLUENZA VACCINE (#1)] Future Scheduled 2023-06-18 Pneumococcal Vaccine: [facility] Test 03:36:13 Pediatrics (0 to 5 Years) and At-Risk Patients (6 to 64 Years) (1 - PCV) [code = Pneumococcal Vaccine: Pediatrics (0 to 5 Years) and At-Risk Patients (6 to 64 Years) (1 - PCV)] Future Scheduled 2023-06-18 Hepatitis C screening [facility] Test 03:36:13 (procedure) [code = 261802425] Future Scheduled 2023-06-18 [facility] Test 03:36:13 malignant neoplasm of cervix (procedure) [code = 213266360] Future Scheduled 2023-06-18 COVID-19 VACCINE (3 - [facility] Test 03:36:13 season) [code = COVID-19 VACCINE (3 - season)] Future Scheduled 2023-06-18 INFLUENZA VACCINE (#1) [facility] Test 03:36:13 [code = INFLUENZA VACCINE (#1)] Future Scheduled 2023-06-18 RSV VACCINES > 60 YR Met [facility] Test 03:36:13 (1 - 1-dose 60+ series) [code = RSV VACCINES > 60 YR (1 - 1-dose 60+ series)] Future Scheduled 2023-06-12 Pneumococcal Vaccine: [facility] Test 08:20:18 Pediatrics (0 to 5 Years) and At-Risk Patients (6 to 64 Years) (1 - PCV) [code = Pneumococcal Vaccine: Pediatrics (0 to 5 Years) and At-Risk Patients (6 to 64 Years) (1 - PCV)] Future Scheduled 2023-06-12 Hepatitis C screening [facility] Test 08:20:18 (procedure) [code = 993181943] Future Scheduled 2023-06-12 [facility] Test 08:20:18 malignant neoplasm of cervix (procedure) [code = 371839016] Future Scheduled 2023-06-12 COVID-19 VACCINE (3 - [facility] Test 08:20:18 Pfizer series) [code = COVID-19 VACCINE (3 - Pfizer series)] Future Scheduled 2023-06-12 INFLUENZA VACCINE (#1) [facility] Test 08:20:18 [code = INFLUENZA VACCINE (#1)] Future Scheduled 2023-02-19 Pneumococcal Vaccine: [facility] Test 07:49:13 Pediatrics (0 to 5 Years) and At-Risk Patients (6 to 64 Years) (1 - PCV) [code = Pneumococcal Vaccine: Pediatrics (0 to 5 Years) and At-Risk Patients (6 to 64 Years) (1 - PCV)] Future Scheduled 2023-02-19 [facility] Test 07:49:13 (procedure) [code = 974072943] Future Scheduled 2023-02-19 [facility] Test 07:49:13 malignant neoplasm of cervix (procedure) [code = 301510343] Future Scheduled 2023-02-19 COVID-19 VACCINE (3 - [facility] Test 07:49:13 Pfizer series) [code = COVID-19 VACCINE (3 - Pfizer series)] Future Scheduled 2023-02-19 [facility]FL[facility]ZA VACCINE [facility] Test 07:49:13 [code = INFLUENZA VACCINE] Future Scheduled 2023-02-19 Pneumococcal Vaccine: [facility] 07:49:13 Pediatrics (0 to 5 Years) and At-Risk Patients (6 to 64 Years) (1 - PCV) [code = Pneumococcal Vaccine: Pediatrics (0 to 5 Years) and At-Risk Patients (6 to 64 Years) (1 - PCV)] Future Scheduled 2023-02-19 Hepatitis C screening [facility] Test 07:49:13 (procedure) [code = 051094872] Future Scheduled 2023-02-19 [facility] Test 07:49:13 malignant neoplasm of cervix (procedure) [code = 888715607] Future Scheduled 2023-02-19 COVID-19 VACCINE (3 - [facility] Test 07:49:13 Pfizer series) [code = COVID-19 VACCINE (3 - Pfizer series)] Future Scheduled 2023-02-19 [facility]ZA VACCINE [facility] 07:49:13 [code = INFLUENZA VACCINE] Future Scheduled 2023-02-19 Pneumococcal Vaccine: [facility] 07:49:13 Pediatrics (0 to 5 Years) and At-Risk Patients (6 to 64 Years) (1 - PCV) [code = Pneumococcal Vaccine: Pediatrics (0 to 5 Years) and At-Risk Patients (6 to 64 Years) (1 - PCV)] Future Scheduled 2023-02-19 Hepatitis C screening [facility] Test 07:49:13 (procedure) [code = 598382619] Future Scheduled 2023-02-19 [facility] Test 07:49:13 malignant neoplasm of cervix (procedure) [code = 700386684] Future Scheduled 2023-02-19 COVID-19 VACCINE (3 - [facility] Test 07:49:13 Pfizer series) [code = COVID-19 VACCINE (3 - Pfizer series)] Future Scheduled 2023-02-19 INFLUENZA VACCINE [facility] Test 07:49:13 [code = INFLUENZA VACCINE] Future Scheduled 2023-02-19 Pneumococcal Vaccine: [facility] Test 07:49:13 Pediatrics (0 to 5 Years) and At-Risk Patients (6 to 64 Years) (1 - PCV) [code = Pneumococcal Vaccine: Pediatrics (0 to 5 Years) and At-Risk Patients (6 to 64 Years) (1 - PCV)] Future Scheduled 2023-02-19 Hepatitis C screening [facility] Test 07:49:13 (procedure) [code = 819319929] Future Scheduled 2023-02-19 [facility] Test 07:49:13 malignant neoplasm of cervix (procedure) [code = 782628187] Future Scheduled 2023-02-19 COVID-19 VACCINE (3 - [facility] Test 07:49:13 Pfizer series) [code = COVID-19 VACCINE (3 - Pfizer series)] Future Scheduled 2023-02-19 INFLUENZA VACCINE Method [facility] Test 07:49:13 [code = INFLUENZA VACCINE] [...] Center Hospital Test 10:15:19 (procedure) [code = 795780642] Future Scheduled 2022-12-30 [facility] Test 10:15:19 malignant neoplasm of cervix (procedure) [code = 329140781] Future Scheduled 2022-12-30 COVID-19 VACCINE (3 - [facility] Test 10:15:19 Booster for Pfizer series) [code = COVID-19 VACCINE (3 - Booster for Pfizer series)] Future Scheduled 2022-12-30 INFLUENZA VACCINE Method [facility] Test 10:15:19 [code = INFLUENZA [...] Center Hospital Test 10:15:19 (procedure) [code = 199303844] Future Scheduled 2022-12-30 [facility] Test 10:15:19 malignant neoplasm of cervix (procedure) [code = 937235021] Future Scheduled 2022-12-30 COVID-19 VACCINE (3 - [...] Center Hospital Test 10:15:19 (procedure) [code = [id number]] Future Scheduled 2022-12-30 [facility] 10:15:19 malignant neoplasm of cervix (procedure) [code = 788690077] Future Scheduled 2022-12-30 COVID-19 VACCINE (3 - [facility] Test 10:15:19 Booster for Pfizer series) [code = COVID-19 VACCINE (3 - Booster for Pfizer series)] Future Scheduled 2022-12-30 [facility] 10:15:19 [code = INFLUENZA VACCINE] Future Scheduled 2022-08-02 Pneumococcal Vaccine: [facility] Test 11:23:36 Pediatrics (0 to 5 Years) and At-Risk Patients (6 to 64 Years) (1 - PCV) [code = Pneumococcal Vaccine: Pediatrics (0 to 5 Years) and At-Risk Patients (6 to 64 Years) (1 - PCV)] Future Scheduled 2022-08-02 Hepatitis C screening [facility] Test 11:23:36 (procedure) [code = 590547703] Future Scheduled 2022-08-02 [facility] 11:23:36 malignant neoplasm of cervix (procedure) [code = 070552275] Future Scheduled 2022-08-02 COVID-19 VACCINE (3 - [facility] Test 11:23:36 Booster for Pfizer series) [code = COVID-19 VACCINE (3 - Booster for Pfizer series)] Future Scheduled 2022-08-02 [facility] 11:23:36 [code = INFLUENZA VACCINE] Future Scheduled 2022-07-24 Pneumococcal Vaccine: [facility] Test 21:51:51 Pediatrics (0 to 5 Years) and At-Risk Patients (6 to 64 Years) (1 - PCV) [code = Pneumococcal Vaccine: Pediatrics (0 to 5 Years) and At-Risk Patients (6 to 64 Years) (1 - PCV)] Future Scheduled 2022-07-24 Hepatitis C screening [facility] Test 21:51:51 (procedure) [code = 186833936] Future Scheduled 2022-07-24 [facility] 21:51:51 malignant neoplasm of cervix (procedure) [code = 585171678] Future Scheduled 2022-07-24 COVID-19 VACCINE (3 - [facility] Test 21:51:51 Booster for Pfizer series) [code = COVID-19 VACCINE (3 - Booster for Pfizer series)] Future Scheduled 2022-07-24 [facility] 21:51:51 [code = INFLUENZA VACCINE] Future Scheduled 2022-07-15 Pneumococcal Vaccine: [facility] Test 15:03:03 Pediatrics (0 to 5 Years) and At-Risk Patients (6 to 64 Years) (1 - PCV) [code = Pneumococcal Vaccine: Pediatrics (0 to 5 Years) and At-Risk Patients (6 to 64 Years) (1 - PCV)] Future Scheduled 2022-07-15 Hepatitis C screening [facility] Test 15:03:03 (procedure) [code = 155937076] Future Scheduled 2022-07-15 [facility] 15:03:03 malignant neoplasm of cervix (procedure) [code = 638139753] Future Scheduled 2022-07-15 COVID-19 VACCINE (3 - [facility] Test 15:03:03 Booster for Pfizer series) [...] Future Scheduled 2022 Hepatitis C screening [facility] Test 09:54:03 (procedure) [code = 962666833] Future Scheduled 2022 [facility] 09:54:03 malignant neoplasm of cervix (procedure) [code = 977033291] Future Scheduled 2022 COVID-19 VACCINE (3 - [facility] Test 09:54:03 Booster for Pfizer series) [code = COVID-19 VACCINE (3 - Booster for Pfizer series)] Future Scheduled 2022 [facility]ACC[facility] 09:54:03 [code = INFLUENZA VACCINE] Encounters Start End Encounter Admission Attending Care Care Encounter Source Date/Time Date/Time Type Type Clinicians Facility Department ID 2021-07-06 Emergency [facility] [id number] Univers 13:36:32 ity [facility] 2021-07-04 Emergency [facility] [id number] Univers 11:22:30 ity [facility] 2021-07-04 Emergency [facility] [id number] Univers [facility] MALISSA [id number] [facility] 10:52:00 [id number] [facility] 2020-12-27 [facility] [id number] [facility] 20:29:00 65 [facility] 2020-12-26 Inpatient CLAUDETTE Escobar, [facility] [id number] [facility] 10:00:00 Rik 01 [facility] 2020-12-22 Inpatient [facility] [id number] [facility] 23:08:15 49 [facility] are [facility] 2020-08-23 Inpatient [facility] MALISSA [id number] [facility] 09:10:00 26 [facility] 2020-08-05 Inpatient [facility] MALISSA [id number] [facility] 20:55:00 [facility] 2020-02-20 Outpatient MIRYAM, [facility] 7511 M [facility] 10:04:01 LISHA 2023-07-16 2023-07-16 Outpatient R MARINA BERG [facility] [id number] Univers 14:00:00 14:00:00 MARINA BERG [facility] 2023-07-05 2023-07-05 Emergency X LAZARUS [facility] ERT [id number] Univers 12:50:00 14:12:00 DONTA calixto [facility] 2023-07-05 2023-07-[address] [facility] 1.2.110.368 [id number] Univers 12:50:00 14:12:00 Donta GUERRERO 350.1.13.10 i ty of [place] 4.2.7.2.686 [place] [facility] [id number] [address] 2023-07-04 2023-07-04 Patient Doctor [facility] 1.2.840.114 [id number] Univers 00:00:00 00:00:00 Secure Msg Unassigned, HEALTH 350.1.13.10 ity of [place] 4.2.7.2.686 Zay as BLANCA?BLEA [id number] [address] MEDICAL OFFICE [facility] 2023-07-02 2023-07-02 Telephone Gladis [facility] 1.2.840.114 [id number] Univers 00:00:00 00:00:00 Rania HEALTH 350.1.13.10 it y of [place] 4.2.7.2.686 Zay as BLANCA?BLEA [id number] [address] OFFICE [facility] 2023-07-02 2023-07-02 Clinic Jose [facility] 1.2.512.250 [id number] Univers 00:00:00 00:00:00 Assessment [facility] 350..13.10 ity of [facility] 4.2.7.2.686 Zay as BLANCA?BLEA [phone] Mn denilson [place] [address] [place] [address] MEDICAL OFFICE [facility] 2023-07-01 2023-07-01 Outpatient R JOSE [facility] [id number] Univers 11:00:00 11:39:48 DEVANG misty [facility] 2023-07-01 2023-07-01 Urgent Jose [facility] 1.2.840.11 4 [id number] Univers 11:00:00 11:39:48 Care Unknown, Attending HEALTH 350.1.13.10 ity of [facility] 4.2.7.2.686 Zay as BLANCA?BLEA [phone] Mn denilson [place] [address] [place] [address] MEDICAL OFFICE [facility] 2023-06-29 2023-06-29 Outpatient R JOSE [facility] [id number] Univers 13:20:00 14:35:47 DEVANG [facility] 2023-06-29 2023-06-29 [facility] 1.2.840.11 4 [id number] Univers 13:20:00 14:35:47 Care Unknown, [facility] 350..13.10 ity of [place] 4.2.7.2.686 Zay as BLANCA?BLEA [phone] Mn denilson [place] [address] [place] [address] OFFICE [facility] 2023-06-29 2023-06-29 Outpatient CLAUDETTE KaseySALENA PABLITO [id number] [facility] 12:00:00 12:00:[address] 2023-06-10 2023-06-10 Outpatient MARINA WISDOM [facility] [id number] Univers 10:40:00 11:18:23 MARINA BERG [facility] 2023-06-10 2023-06-[address] [facility] 1.2.840.114 [id number] [facility] 10:40:00 11:18:23 Visit [facility] 350..13.10 ity of [facility] 4.2.7.2.686 Zay as BLANCA?BLEA [phone] Mn denilson COVINGTNO [address] [place] [address] MEDICAL OFFICE BUILDING 2023-06-10 2023-06-[address] [facility] 1.2.840.114 [id number] Univers 00:00:00 00:00:00 Outreach Mindy GUERRERO 350.1.13.10 ity of [place].2.7.2.686 [place] [id number] [facility] EDILBERTO [address] [place] [address] 2023-06-08 2023-06-08 Outpatient R GRACIELA [facility] [id number] Univers 11:30:00 11:30:00 KAYLEY calixto of [facility] 2023-05-27 2023-05-27 Telephone [facility] 1.2.354.339 [id number] Univers 00:00:00 00:00:00 Amrit GUERRERO 350.1.13.10 ity of [facility] 4.2.7.2.686 [place] [id number] [address] 2023-05-25 2023-05-[address] [facility] 1.2.923.170 [id number] Univers 00:00:00 00:00:00 Amrit GUERRERO 350.1.13.10 ity of [facility] 4.2.7.2.686 [place] [phone] [address] 2023-05-24 2023-05-24 [facility] 1.2.215.198 [id number] Univers 00:00:00 00:00:00 Amrit GUERRERO 350.1.13.10 ity of [facility] 4.2.7.2.686 [place] [id number] [address] 2023-05-19 2023-05-19 Telephone [facility] 1.2.840.114 10 [id number] Univers 00:00:00 00:00:00 Kayley GANDARA 350.1.13.10 it y of W[place] 4.2.7.2.686 [place] [id number] [place] [address] [address] 2023-03-02 2023-03-02 Urgent Tami Alas [facility] 1.2.840.114 1 [id number] Univers 12:00:00 12:20:00 Care Unknown, [facility] HEALTH 350.1.13.10 ity of [place] 4.2.7.2.686 Zay as BLANCA?BLEA [id number] [address] OFFICE [facility] 2023-03-02 2023-03-02 Outpatient R BISHOP [facility] [id number] Univers 12:00:00 12:00:00 TAMI misty [facility] 2023-03-02 2023-03-[address] [facility] 1.2.840.114 [id number] Univers 00:00:00 00:00:00 (Out) [facility] 350.1.13.10 it y of [place] 4.2.7.2.686 Zay as BLANCA?BLEA [id number] [address] OFFICE [facility] 2023-01-21 2023-01-21 Emergency X POLLO [facility] ERT [id number] Univers 13:46:00 18:49:00 [facility]23-[facility]-21 2023-01-[address] [facility] 1.2.576.364 [id number] Univers 13:46:00 18:49:00 [facility] 350.1.13.10 it y of [facility] 4.2.7.2.686 [facility] [phone] [address] ([facility]) 2023-01-21 2023-01-21 Outpatient R KRISTY [facility] [id number] Univers 13:30:00 13:30:00 SMITHA calixto [facility] 2023-01-15 2023-01-[address] [facility] ERT [id number] Univers 08:50:00 13:10:00 BRANT [facility] 2023-01-15 2023-01-[address] [facility] 1.2.777.392 [id number] Univers 08:50:00 13:10:00 Brant S [place] 350.1.13.10 i ty of [place] 4.2.7.2.686 [facility] [phone] [address] 2023-01-15 2023-01-15 Outpatient R KENZIE BADILLO [facility] [id number] Univers 09:00:00 09:00:00 ity [facility] 2023-01-15 2023-01-15 Emergency X [facility] ERT [id number] Univers 05:24:00 06:28:00 WAKILI ity [facility] 2023-01-15 2023-01-15 Emergency [facility] 1.2.693.747 [id number] Univers 05:24:00 06:28:00 Vajanette [place] 350.1.13.10 ity of [place] 4.2.7.2.686 [facility] [id number] [address] 2023-01-12 2023-01-12 Outpatient R FELISHA [facility] [id number] Univers 10:30:00 10:30:00 JUANY ity [facility] 2023-01-08 2023-01-08 Outpatient R FRANCESCA [facility] [id number] Univers 08:00:00 08:00:00 SENDIL ity [facility] 2023-01-07 2023-01-07 Orders Doctor SUDHA 1.2.840.114 [id number] Univers 00:00:00 00:00:00 Only Unassigned, ALEM 350.1.13.10 ity of [place] [facility] 4.2.7.2.686 Zay as [id number] [address] 2023-01-04 2023-01-04 Orders Doctor SUDHA 1.2.840.114 [id number] Univers 00:00:00 00:00:00 Only Unassigned, ALEM 350.1.13.10 ity of [place] [facility] 4.2.7.2.686 Zay as [id number] [address] 2023-01-04 2023-01-[address] [facility] 1.2.270.915 [id number] Univers 00:00:00 00:00:00 [facility] 350.1.13.10 it y of [place] CANCER 4.2.7.2.686 [facility] - [phone] Med ical [facility] [address] 2023-01-01 2023-01-01 Telephone Carinacam [facility] NEEL 1.2.840.11 4 [id number] Univers 00:00:00 00:00:00 Jorge GANDARA 350.1.13.10 it y of [place]2.[place].2.[place] [phone] [facility] [address] 2022-12-31 2022-12-31 Emergency X Jasmin GREGORIO [facility] ERT [id number] Univers 00:13:00 01:07:00 ity of [facility] 2022-12-31 2022-12-31 Emergency Jasmin Gregorio [facility] 1.2.840.114 [id number] Univers 00:13:00 01:07:00 Filomena GUERRERO 350.1.13.10 i ty of [place] 4.2.7.2.686 [place] [id number] [facility] [address] 2022-12-31 2022-12-[address] [facility] 1.2.093.267 [id number] Univers 00:00:00 00:00:00 Sendil Ismael GUERRERO 350.1.13.10 ity of [place] 4.2.7.2.686 [place] [phone] [facility] 059 [facility] 2022-12-31 2022-12-31 Patient Doctor SUDHA 1.2.840.114 [id number] Univers 00:00:00 00:00:00 Secure Msg Unassigned, ALEM 350.1.13.10 ity of [place] [facility] 4.2.7.2.686 Zay as [id number] [facility] [address] 2022-12-30 2022-12-[address] [facility] 1.2.840.114 [id number] Univers 10:38:24 23:59:00 Encounter Amrit GUERRERO 350.1.13.10 ity of [place] 4.2.7.2.686 [place] [id number] [facility] [address] 2022-12-30 2022-12-30 Outpatient R FRANCESCA [facility] [id number] Univers 10:38:24 23:59:00 SENDIL ity of [facility] 2022-12-30 2022-12-[address] [facility] ERT [id number] Univers 10:21:00 10:33:00 AWILDA ity of [facility] 2022-12-30 2022-12-30 Emergency [facility] 1.2.840.114 10 [id number] Univers 10:21:00 10:33:00 Awilda GUERRERO 350.1.13.10 ity of [place] 4.2.7.2.686 [facility] [phone] [facility] [address] 2022-12-30 2022-12-30 Telephone Sammie [facility] 1.2.840.11 4 [id number] Univers 00:00:00 00:00:00 Jorge GANDARA 350.1.13.10 it y of WOMEN'S 4.2.7.2.686 [facility] [id number] [facility] [address] 2022-12-29 2022-12-29 Outpatient R JORGE CHANDRA [facility] B [id number] Univers 13:30:00 13:30:00 JORGE CHANDRA [facility] 2022-12-29 2022-12-29 Orders Doctor SUDHA 1.2.840.114 [id number] Univers 00:00:00 00:00:00 Only Unassigned, ALEM 350.1.13.10 ity of [place] [facility] 4.2.7.2.686 [facility] [id number] [facility] [address] 2022-12-29 2022-12-29 Telephone Felisha [facility] 1.2.096.632 [id number] Univers 00:00:00 00:00:00 Juany HEALTH 350.1.13.10 it y of [place] 4.2.7.2.686 [facility] - [phone] Med [facility] [address] 2022-12-28 2022-12-[address] [facility] 1.2.388.641 [id number] Univers 00:00:00 00:00:00 Juany HEALTH 350.1.13.10 it y of [place] 4.2.7.2.686 [place] [facility] [id number] Med ical [facility] [address] 2022-12-25 2022-12-25 Patient Graciela [facility] 1.2.840.114 [id number] Univers 00:00:00 00:00:00 Secure Msg Kayley HEALTH 350.1.13.10 ity of [place] 4.2.7.2.686 Zay as BLANCA?BLEA [id number] Mn dicenid RITOMELIDA [address] MEDICAL OFFICE BUILDING 2022-12-23 2022-12-23 Telephone [facility] 1.2.840.11 4 [id number] Univers 00:00:00 00:00:00 Jorge GANDARA 350.1.13.10 it y of [place].2.[place] [facility] [id number] [facility] [address] 2022-12-23 2022-12-23 Patient Gurpreet [facility] 1.2.840.114 [id number] Univers 00:00:00 00:00:00 Secure Msg Norberto GUERRERO 350.1.13.10 ity of [place] 4.2.7.2.[place] [id number] Mn dicenid [facility] 134 [facility] 2022-12-22 2022-12-22 [facility], [facility] 1.2.840.1 14 [id number] Univers 09:30:00 09:45:00 Visit Jorge Chandra 350.1.13.1 0 ity of [facility] 4.2.7.2.686 Zay as BLANCA?BLEA [id number] Mn dicenid RITOMELIDA [address] MEDICAL OFFICE BUILDING 2022-12-22 2022-12-22 Office [facility] 1.2.840.114 [id number] Univers 08:00:00 08:53:38 Visit Jorge GANDARA 350.1.13.10 it y of [place] 4.2.7.2.686 [place] [id number] [address] 2022-12-22 2022-12-22 Outpatient R JORGE CHANDRA [facility] B [id number] Univers 08:00:00 08:53:38 JORGE CHANDRA ity of [facility] 2022-12-22 2022-12-22 Patient Doctor SUDHA 1.2.840.114 [id number] Univers 00:00:00 00:00:00 Secure Msg Unassigned, ALEM 350.1.13.10 ity of [place] [facility] 4.2.7.2.686 Zay as [id number] [facility] [address] 2022-12-21 2022-12-21 Orders Doctor SUDHA 1.2.840.114 [id number] Univers 00:00:00 00:00:00 Only Unassigned, ALEM 350.1.13.10 ity of [place] [facility] 4.2.7.2.686 Zay as [id number] [facility] [address] 2022-12-19 2022-12-19 Emergency X [facility] ERT [id number] Univers 02:32:00 05:47:00 MDJANETTELI ity [facility] 2022-12-19 2022-12-19 Emergency [facility] 1.2.693.190 [id number] Univers 02:32:00 05:47:00 Miladys Waters [facility] 350.1.13.10 ity of [place] 4.2.7.2.686 [facility] [id number] [facility] [address] 2022-12-18 2022-12-18 Outpatient R KENZIE BADILLO [facility] [id number] Univers 09:45:00 09:45:00 ity of [facility] 2022-12-17 2022-12-17 Telephone Kenzie Badillo [facility] 1.2.840.114 [id number] Univers 00:00:00 00:00:00 E HEALTH 350.1.13.10 it y of [place] 4.2.7.2.686 [facility] [id number] [facility] [address] 2022-12-15 2022-12-15 Outpatient R FRANCESCA INGORDON [facility] [id number] Univers 11:00:00 11:30:30 SENDIL ity [facility] 2022-12-15 2022-12-15 Office [facility] 1.2.840.114 [id number] Univers 11:00:00 11:30:30 Visit Sendgerman GUERRERO 350.1.13.10 ity of [facility] 4.2.7.2.686 [place] [id number] Mn dical NAL [address] [place] [address] 2022-12-15 2022-12-15 Telephone [facility] 1.2.640.086 [id number] Univers 00:00:00 00:00:00 Sendil Ismael GUERRERO 350.1.13.10 ity of [facility] 4.2.7.2.686 [place] [id number] Mn dical NAL [address] [place] [address] 2022-12-14 2022-12-14 Emergency X [facility] ERT [id number] Univers 03:03:00 07:05:00 MILADYS ity [facility] 2022-12-14 2022-12-14 Emergency [facility] 1.2.934.555 [id number] Univers 03:03:00 07:05:00 Miladys Waters YOLANDA 350.1.13.10 ity of [facility] 4.2.7.2.686 [place] [id number] [address] 2022-11-03 2022-11-03 Emergency X [facility] ERT [id number] Univers 08:15:00 12:05:00 [facility] 2022-[facility]-03 2022-11-03 Emergency [facility] 1.2.458.575 [id number] Univers 08:15:00 12:05:00 Gaurang GUERRERO 350.1.13.10 i ty of [facility] 4.2.7.2.686 [place] [id number] [address] 2022-10-28 2022-10-[address] [facility] [id number] Univers 15:00:00 15:28:11 KAYLEY itmisty [facility] 2022-10-28 2022-10-[address] [facility] 1.2.840.114 [id number] Univers 15:00:00 15:28:11 Visit [facility] 350.1.13.10 it y of [place] 4.2.7.2.686 Zay as BLANCA?BLEA [phone] [address] OFFICE [facility] 2022-10-28 2022-10-28 Orders Doctor SUDHA 1.2.840.114 [id number] Univers 00:00:00 00:00:00 Only Unassigned, ALEM 350.1.13.10 ity of [place] [facility] 4.2.7.2.686 Zay as [id number] [address] 2022-10-28 2022-10-28 Abstract Graciela [facility] 1.2.840.114 [id number] Univers 00:00:00 00:00:00 Kayley [facility] 350.1.13.10 it y of [facility] 4.2.7.2.686 Zay as BLANCA?BLEA [id number] [address] OFFICE [facility] 2022-10-28 2022-10-28 Patient Henry [facility] 1.2.840.114 [id number] Univers 00:00:00 00:00:00 Outreach Florence L [facility] 350.1.13.10 i ty of [place] 4.2.7.2.686 Zay as BLANCA?BLEA [id number] [address] OFFICE [facility] 2022-10-28 2022-10-28 Telephone Henry [facility] 1.2.217.127 [id number] Univers 00:00:00 00:00:00 Phylicia [facility] 350.1.13.10 i ty of [facility] 4.2.7.2.686 [place] [phone] [address] 2022-10-13 2022-10-13 Emergency X CAROL [facility] ERT [id number] Univers 01:56:00 02:55:00 MILADYS anthonyy [facility] 2022-10-13 2022-10-13 [facility] 1.2.138.214 [id number] Univers 01:56:00 02:55:00 Miladys GUERRERO 350.1.13.10 ity of [facility] 4.2.7.2.686 [facility] [phone] [facility] [address] 2022-10-09 2022-10-[address] [facility] [id number] Univers 18:46:00 19:00:00 BRANT ity of [facility] 2022-10-09 2022-10-[address] [facility] [id number] [id number] Univers 18:46:00 19:00:00 Brant S [facility] 350.1.13.10 i ty [facility] 4.2.7.2.686 [id number] [address] 2022-10-09 2022-10-09 Orders Doctor SUDHA 1.2.840.114 [id number] Univers 00:00:00 00:00:00 Only Unassigned, ALEM 350.1.13.10 ity of [place] [facility] 4.2.7.2.686 Zay [id number] [facility] [address] 2022-10-06 2022-10-06 [facility], 1.2.840.1 [id number] Methodi 17:35:51 23:59:00 Encounter Jorge Luis [id number] 997 s t 3.430.2.7 Hospit a .3.604806 l .8 2022-10-06 2022-10-06 [facility], 1.2.840.1 [id number] Methodi 17:35:51 23:59:00 Encounter Jorge Luis [id number] 997 s t 3.430.2.7 Hospit a .3.473365 l .8 2022-10-06 2022-10-06 [facility], 1.2.840.1 [id number] Methodi 17:35:36 23:59:00 Encounter Jorge Luis [id number] 999 s t 3.430.2.7 Hospit a .3.902586 l .8 2022-10-06 2022-10-06 [facility] [facility], 1.2.840.1 [id number] 101 [id number] Methodi 17:35:36 23:59:00 Jose Kang 85768.1.1 999 s t 3.430.2.7 Hospit a .3.823345 l .8 2022-10-06 2022-10-06 Travel 1.2.840.1 1.2.163.957 0264 910333 Methodi 00:00:00 00:00:[address] 3.430.2.7 0.2.7.3.698 Ho spita .3.378131 084.8 l .8 2022-10-06 2022-10-06 Travel 1.2.840.1 1.2.857.072 4239 937151 Methodi 00:00:00 00:00:[address] 3.430.2.7 0.2.7.3.698 Ho spita .3.766880 084.8 l .8 2022-09-09 2022-09-09 Emergency X BANUELOS, [facility] ERT [id number] Univers 18:15:00 19:35:00 NATY calixto [facility] 2022-09-09 2022-09-09 Emergency [facility] 1.2.840.114 995 21591 Univers 18:15:00 19:35:00 Naty GUERRERO 350.1.13.10 i ty of [place] 4.2.7.2.686 [facility] [id number] [address] 2022-08-18 2022-08-[address] [facility] ERT [id number] Univers 16:38:00 17:44:00 HUY calixto [facility] 2022-08-18 2022-08-[address] [facility] 1.2.329.228 1131 1453 Univers 16:38:00 17:44:00 Huy GUERRERO 350.1.13.10 i ty of [facility] 4.2.7.2.686 [facility] [id number] [address] 2022-08-07 2022-08-08 Inpatient EL Pfost, [facility].01 [id number] [facility] 14:50:00 12:01:00 Gianna [facility] 2022-08-03 2022-08-03 Emergency EM Ernesto, [facility] AERS [id number] [facility] 14:26:00 16:02:00 Roro 86 [facility] 2022-07-23 2022-07-23 [facility], 1.2.840.1 [id number] Methodi 10:30:00 10:30:00 Encounter Jorge Luis 24400.1.1 209 s t 3.430.2.7 Hospit a .3.473136 l .8 2022-07-23 2022-07-23 Telephone Gabi, 1.2.840.1 [id number] 2100 [id number] Methodi 00:00:00 00:00:[address] 3.430.2.7 Hospit a .3.677117 l .8 2022-07-23 2022-07-23 Telephone Gabi, 1.2.840.1 [id number] 2100 455728 Methodi 00:00:00 00:00:[address] 3.430.2.7 Hospit a .3.997296 l .8 2022-07-07 2022-07-07 Outpatient LONA DILL [id number] 936 Lona 10:45:00 10:45:00 ELBERT alvarez 2022-07-06 2022-07-06 Travel 1.2.840.1 1.2.623.156 7672 789819 Methodi 00:00:00 00:00:[address] 3.430.2.7 0.2.7.3.698 Ho spita .3.011096 084.8 l .8 2022-06-15 2022-06-16 Office [facility], 1.2.840.1 [id number] 2099 643326 Methodi 14:15:00 11:08:59 Visit Jorge Luis 39939.1.[address] 3.430.2.7 Hospit a .3.418425 l .8 2022-06-15 2022-06-15 [facility], 1.2.840.1 [id number] 342 [id number] Methodi 14:15:15 23:59:00 Encounter Jorge Luis 88987.1.1 971 s t 3.430.2.7 Hospit a .3.000346 l .8 2022-06-15 2022-06-15 [facility], 1.2.840.1 [id number] 383 0741269 Methodi 14:15:13 23:59:00 Encounter Jorge Luis 06038.1.1 963 s t 3.430.2.7 Hospit a .3.900786 l .8 2022-06-15 2022-06-15 [facility], 1.2.840.1 [id number] 070 [id number] Methodi 14:13:36 14:14:00 Encounter Jorge Luis 19073.1.1 680 s t 3.430.2.7 Hospit a .3.849546 l .8 2022-06-15 2022-06-15 [facility], 1.2.840.1 [id number] 470 [id number] Methodi 14:12:01 14:12:01 Encounter Jorge Luis 69738.1.1 418 s t 3.430.2.7 Hospit a .3.918851 l .8 2022-06-15 2022-06-15 [facility], 1.2.840.1 [id number] 2100 048629 Methodi 00:00:00 00:00:00 Only Jorge Luis 52820.1.[address] 3.430.2.7 Hospit a .3.261503 l .8 2022-06-15 2022-06-15 Travel 1.2.840.1 1.2.164.698 5638 675344 Methodi 00:00:00 00:00:[address] 3.430.2.7 0.2.7.3.698 Ho spita .3.476324 084.8 l .8 2022-06-11 2022-06-11 Travel 1.2.840.1 1.2.493.402 4457 354596 Methodi 00:00:00 00:00:[address] 3.430.2.7 0.2.7.3.698 Ho spita .3.867256 084.8 l .8 2022-02-17 2022-02-17 Refill Vivian, 1.2.840.1 [id number] 2100 925843 Methodi 00:00:00 00:00:[address] Andrea 3.430.2.7 Hospit a .3.205324 l .8 2022-01-20 2022-01-20 Office Vivian 1.2.840.1 [id number] 2100 844523 Methodi 13:00:00 13:57:49 Visit Yoseph 98235.1.[address] [facility] 3.430.2.7 Hospit a .3.751883 l .8 2022-01-20 2022-01-20 Telephone GEORGIE Kelley 1.2.840.114 9 [id number] Univers 00:00:00 00:00:00 Michi MIJARESPEC 350.1.13.10 ity of IALTY 4.2.7.2.686 [facility] [id number] [address] [facility] 2022-01-20 2022-01-20 Travel 1.2.840.1 1.2.895.518 3511 613433 Methodi 00:00:00 00:00:[address] 3.430.2.7 0.2.7.3.698 Ho spita .3.404741 084.8 l .8 2022-01-19 2022-01-19 Telephone GEORGIE Borges 1.2.840.114 93 938835 Univers 00:00:00 00:00:00 Yoseph MULTISPEC 350.1.13.10 ity of Andrea IALTY 4.2.7.2.686 [facility] [phone] [facility] AND RAVENNA [address] [facility] 2021-11-21 2021-11-21 Orders Doctor SUDHA 1.2.840.114 [id number] Univers 00:00:00 00:00:00 Only Unassigned, ALEM 350.1.13.10 ity of [place] [facility] 4.2.7.2.686 Zay as [phone] [facility] 009 Branch 2021-11-17 2021-11-18 Emergency X [facility] ERT [id number] 11 Univers 19:45:00 00:44:00 DONTA ity of [facility] 2021-11-17 2021-11-18 [facility] 1.2.037.881 4801 8574 Univers 19:45:00 00:44:00 Dontabhavin GUERRERO 350.1.13.10 i ty [facility] 4.2.7.2.686 [facility] [id number] [facility] 084 Branch 2021-11-16 2021-11-16 Emergency [facility]RT [id number] Univers 20:28:00 21:58:00 [facility] 2021-11-16 2021-11-16 Emergency [facility] 1.2.481.328 3173 5340 Univers 20:28:00 21:58:00 Vajanette Austin YOLANDA 350.1.13.10 ity [facility] 4.2.7.2.686 [facility] [phone] [place] 776914 Branch 2021-10-02 2021-10-02 Emergency EM Wang, HCACL MALISSA [id number] [facility] 16:59:00 20:32:00 Hung [id number] Cl [facility] 2021-10-02 2021-10-02 Emergency EM EDDOC, [facility] [id number] [facility] 16:59:00 20:32:00 GENERIC 76 [facility] 2021-10-01 2021-10-01 Petr Borges 1.2.840.1 [id number] 2100 147508 Lucia 00:00:00 00:00:[address] Andrea 3.430.2.7 Hospit a .3.109131 l .8 2021-09-30 2021-09-[address] [facility] ERT [id number] Univers 13:31:00 16:34:00 [facility] 2021-09-30 2021-09-[address] [facility] 1.2.840.114 90 [id number] Univers 13:31:00 16:34:00 Awilda GUERRERO 350.1.13.10 ity [facility] 4.2.7.2.686 [facility] [id number] [address] 2021-08-14 2021-08-14 Refill Gutierres, 1.2.840.1 [id number] 21 [id number] Methodi 00:00:00 00:00:[address] 3.430.2.7 Hospit a .3.841351 l .8 2021-08-12 2021-08-12 Refill Gutierres, 1.2.840.1 [id number] 21 [id number] Methodi 00:00:00 00:00:[address] 3.430.2.7 Hospit a .3.736981 l .8 2021-07-23 2021-07-23 Emergency X [facility] ERT [id number] 08 Univers 16:14:00 17:06:00 ity [facility] 2021-07-23 2021-07-23 Emergency [facility] 1.2.420.297 4699 5383 Univers 16:14:00 17:06:00 YOLANDA 350.1.13.10 i ty [facility] 4.2.7.2.686 [facility] [id number] [address] 2021-07-23 2021-07-23 Emergency EM SALENA Coles AERS [id number] [facility] 13:58:00 14:24:00 Burak 030227 [facility] 2021-07-23 2021-07-23 Emergency EM SALENA Coles HCACL [id number] [facility] 13:58:00 14:24:00 Burak 69 [facility] 2021-07-10 2021-07-10 Telemedici Vivian, 1.2.840.1 [id number] 2 [id number] Methodi 08:30:00 09:02:51 ne Yoseph 07231.1.[address] Andrea 3.430.2.7 Hospit a .3.019002 l .8 2021-07-09 2021-07-09 Travel 1.2.840.1 1.2.686.819 5833 436816 Methodi 00:00:00 00:00:[address] 3.430.2.7 0.2.7.3.698 Ho spita .3.121376 084.8 l .8 2021-06-13 2021-06-13 [facility] 23439 [id number] [place] 00:00:00 00:00:00 YOSEPH 976 Method i 2021-04-17 2021-04-17 Emergency E LOLITA WASSERMAN [facility] 7515 16:40:00 19:42:00 [facility] shona [facility] 2021-03-30 2021-03-30 Emergency E [facility] 7514 BL 00:46:00 06:26:00 [facility] 2021-01-15 2021-01-15 Outpatient SALENA Escobar OUTD G81 6242-20 [facility] 08:00:00 08:00:00 Rik 022935 [facility] 2021-01-09 2021-01-09 Emergency E LOLITA WASSERMAN [facility] 7513 12:29:00 16:41:00 [facility] shona [facility] 2020-12-26 2020-12-26 Emergency [facility] 064 [id number] 09 [place] 00:00:00 00:00:[address] 2020-12-21 2020-12-22 Emergency Carol [facility] 1.2.582.249 3731 7932 Univers 22:42:00 02:02:00 Miladys Guerrero 350.1.13.10 durga [facility] 4.2.7.2.686 [facility] [phone] [facility] 084 Branch 2020-12-21 2020-12-22 Emergency Carol [facility] 1.2.310.940 3271 7932 22:42:00 02:02:00 Miladys Austin Yolanda 350.1.13.10 [place] 4.2.7.2.686 [place] [id number] 084 2020-12-21 2020-12-21 Orders Doctor HALEY 1.2.840.114 [id number] 30 Univers 00:00:00 00:00:00 Only Unassigned, ALEM 350.1.13.10 ity of [place] [facility] 4.2.7.2.[address] [place] [id number] [facility] 009 Branch 2020-12-21 2020-12-21 Orders Doctor HALEY 1.2.840.114 [id number] 30 00:00:00 00:00:00 Only Unassigned, ALEM 350.1.13.10 [place] [facility] 4.2.7.2.[facility] 559.1515193 009 2020-08-15 2020-08-19 Inpatient [facility] [id number] [facility] 14:57:00 06:49:15 39 [facility] 2020-08-15 2020-08-[address] [facility] 1.2.516.057 7353 8387 Univers 03:26:00 06:17:00 Donta Guerrero 350.1.13.10 i ty of [place] 4.2.7.[address] [place] [id number] 2020-08-15 2020-08-[address] [facility] ERT [id number] Univers 03:26:00 06:17:00 DONTA ity of [facility] 2020-08-15 2020-08-[address] [facility] 1.2.768.800 0100 8387 03:26:00 06:17:00 Donta Guerrero 350.1.13.10 [place] 4.2.7.2.686 [place] [id number] 08 2020-04-13 2020-04-[address] [facility] 1.2.840.114 77 [id number] Univers 19:38:00 23:40:00 Awilda Guerrero 350.1.13.10 ity of [place] 4.2.7.2.686 [facility] [id number] [address] 2020-04-13 2020-04-13 Emergency Elisa, [place] 1.2.840.114 77 [id number] 19:38:00 23:40:00 Awildara Cookie Guerrero 350.1.13.10 [place] 4.2.7.2.686 [place] [id number] [facility] 2020-04-13 2020-04-13 Orders Doctor HALEY 1.2.840.114 [id number] [facility] 00:00:00 00:00:00 Only Unassigned, ALEM 350.1.13.10 ity of [place] [facility] 4.2.7.2.686 Zay as [phone] [address] 2020-04-13 2020-04-13 Orders Doctor HALEY 1.2.840.114 [id number] 77 00:00:00 00:00:00 Only Unassigned, ALEM 350.1.13.10 [place] [facility] 4.2.7.2.686 [id number] [facility] 2020-04-10 2020-04-10 Emergency Pope, [facility] 1.2.870.183 6513 5068 [facility] 15:39:00 19:05:00 Huy Guerrero 350.1.13.10 i ty of [place] 4.2.7.2.686 [facility] [id number] [address] 2020-04-10 2020-04-10 Emergency Pope, [facility] 1.2.895.523 3014 5068 15:39:00 19:05:00 Huy Guerrero 350.1.13.10 [place] 4.2.7.2.686 [place] [id number] [facility] 2020-04-10 2020-04-10 Orders Doctor HALEY 1.2.840.114 [id number] [facility] 00:00:00 00:00:00 Only Unassigned, ALEM 350.1.13.10 ity of [place] [facility] 4.2.7.2.686 Zay as [id number] [address] 2020-04-10 2020-04-10 Orders Doctor HALEY 1.2.840.114 [id number] 10 00:00:00 00:00:00 Only Unassigned, ALEM 350.1.13.10 [place] [facility] 4.2.7.2.686 [id number] 009 2020-03-11 2020-03-11 Dusty FOSTER [facility] Obstetrics 677 56894 [place] 10:00:00 10:00:00 t; Gayatri HUSAIN and Quynh FOSTER Gynecology rubén HUSAIN M.D. [facility] 2020-02-28 2020-02-28 [facility] [id number] [place] 08:30:00 08:30:00 t; Gayatri HUSAIN ans ASHA, M.D. 2020-02-23 2020-02-23 [facility] [id number] [place] 11:00:00 11:00:00 t; Gayatri HUSAIN ans ASHA, M.D. 2020-02-16 2020-02-16 Dusty [facility] Ob[facility] 673 [id number] [place] 14:15:00 14:15:00 t; Yue ROCHA i, M.D. Gynecology Dinah [place] M.D. Clinic 2020-02-15 2020-02-15 Emergency E AMELIE, SE MHSE 7510 20:06:00 21:19:00 [facility] 2020-02-14 2020-02-14 Dusty MATAMOROS [facility] Obstetrics 6679 2985 [place] 09:00:00 09:00:00 t; SAMIR MATAMOROS and Quynh DAWSON M.D. Gynecology rubén Mendieta [facility] 2020-01-31 2020-01-31 Dusty AGRAWAL [facility] Obstetrics 667 62427 [place] 08:30:00 08:30:00 t; Yue WATKINS i, D.O. Gynecology [facility] 2019-12-20 2019-12-20 Dusty GOSS [facility] Orthopedics 65 [id number] [place] 09:30:00 09:30:00 t; mayo CIDtuscola Quynh GOSS M.D. Sports Jewel Lazo M.D. [facility] 2019-12-20 2019-12-20 Outpatient Raju_P MMG G [id number] 020 [place] 04:51:00 04:51:00 0415 [facility] 2019-12-18 2019-12-18 Emergency E TABBY, MHSE MHSE 7500 MH 20:54:00 21:40:[address] [facility] 2019-10-11 2019-10-[address] [facility] ERT [id number] Univers 21:52:36 00:17:00 DONTA ity of [facility] 2019-10-11 2019-10-[address] [facility] 1.2.378.920 0364 3555 Univers 21:52:36 00:17:00 Donta Guerrero 350.1.13.10 i ty [facility] 4.2.7.2.686 [facility] [id number] [address] 2019-10-11 2019-10-[address] [facility] 1.2.109.403 9601 3555 21:52:36 00:17:00 Donta Guerrero 350.1.13.10 [place] 4.[address] [place] [address] [phone] [facility] 2019-10-11 2019-10-11 Orders Doctor SUDHA 1.2.840.114 [id number] Univers 00:00:00 00:00:00 Only Unassigned, ALEM 350.1.13.10 ity of [place] [facility] 4.2.7.2.686 [facility] [id number] [address] 2019-10-11 2019-10-11 Orders Doctor SUDHA 1.2.840.114 [id number] 54 00:00:00 00:00:00 Only Unassigned, ALEM 350.1.13.10 [place] 4.2.7.2.686 [id number] 009 2019-06-28 2019-06-28 Appointmen MARIBEL GRUBBS Obstetrics 580 66629 [place] 16:00:00 16:00:00 tAlfonso CAVANAUGH M.D. and Ph ysici HUMERA, Dinah Vázquez M.D. Clinic 2019-05-12 2019-05-12 [facility] 1.2 .840.114 [id number] [facility] 10:44:42 12:05:57 Visit Perri Pérez URGENT CARE NURSE PRACTITIONER 350.1.13.10 ity of REGIONAL 4.2.7.2.686 Zay as MATERNAL [id number] [facility] ical & CHILD [address] [place] [address] 2019-05-12 2019-05-12 Nurse Visit, [facility] 1.2.840.114 [id number] 10:44:42 12:05:57 Visit Bautista URGENT CARE NURSE PRACTITIONER 350.1.13.10 Nurse REGIONAL 4.2.7.2.686 MATERNAL [id number] & CHILD [address] [place] [address] 2019-05-10 2019-05-[address] [facility] 1.2.840.114 [id number] [facility] 00:00:00 00:00:00 Perri Olivier URGENT CARE NURSE PRACTITIONER 350.1.13.10 it y of REGIONAL 4.2.7.2.686 Zay as MATERNAL [id number] [facility] ical & CHILD [address] [place] [address] 2019-05-10 2019-05-[address] [facility] 1.2.840.114 [id number] 00:00:00 00:00:00 Perri Olivier URGENT CARE NURSE PRACTITIONER 350.1.13.10 REGIONAL 4.2.7.2.686 MATERNAL [id number] & CHILD [address] [place] [address] 2019-04-03 2019-04-03 Patient ROBIN Mcfadden 1.2.840.114 705 [id number] [facility] 00:00:00 00:00:00 Secure Msg Ivet Y HEALTH 350.1.13.10 ity of [facility] 4.2.7.2.[place] [id number] [address] 2019-04-03 2019-04-03 Patient Mcfadden, UNIVERSIT 1.2.840.114 705 71793 00:00:00 00:00:00 Secure Msg Ivet Y HEALTH 350.1.13.10 CLINICS 4.2.7.2.686 [id number] [facility] 2019-03-07 2019-03-07 Patient Doctor HALEY 1.2.840.114 [id number] 20 Univers 00:00:00 00:00:00 Secure Msg Unassigned, ALEM 350.1.13.10 ity of [place] [facility] 4.2.7.2.686 Zay as [id number] [address] 2019-03-07 2019-03-07 Patient Doctor SUDHA Johnston2.840.114 [id number] 20 00:00:00 00:00:00 Secure Msg Unassigned, ALEM 350.1.13.10 [place] [facility] 4.2.7.2.686 [id number] 044 2019-02-27 2019-02-27 Patient Doctor SUDHA Astorga.2.840.114 [id number] 58 Univers 00:00:00 00:00:00 Secure Msg Unassigned, ALEM 350.1.13.10 ity of [place] [facility] 4.2.7.2.686 Zay as [phone] [address] 2019-02-27 2019-02-27 Patient Doctor SUDHA Johnston2.840.114 [id number] 58 00:00:00 00:00:00 Secure Msg Unassigned, ALEM 350.1.13.10 [place] [facility] 4.2.7.2.686 [id number] 044 2018-10-13 2018-10-13 AppointMARIBEL Puente [facility] [id number] 058 [place] 14:30:00 14:30:00 t; Jennifer FINK i, M.D. ans JORDAN, M.D. 2018-09-07 2018-09-21 Outpatient [facility] [id number] 15:00:00 10:19:03 2018-09-07 2018-09-07 AppointMARIBEL Rae Director Radiation Oncology [id number] [place] 15:00:00 15:00:00 t; BONITA KRISHNA [...] See_Comment [Au tomated message] The system which [employer] nerated this result transmit uche reference range: [...] 34.6 g/dL 31.6-35.1 RDW-SD (test code = 81567-6) 39.3 fL 39.0-49.9 RDW-CV (test code = 788-0) 11.5 % 12.0-15.5 L PLT (test code = 777-3) 426 See_Comment H [Au tomated message] The system which [employer] nerated this result transmit uche reference range: 166 - 35 8 10*3/?L. The reference range was not used to interpret th is result as normal/abnormal . MPV (test code = 26011-5) 9.3 fL 9.5-12.9 L NRBC/100 WBC (test code = 0.0 See_Comment [ Automated message] The [id number]) system which [employer] nerated this result transmit uche reference range: 0.0 - 10 .0 /100 WBCs. The reference r dagoberto was not used to interpr et this result as normal/abnor mal. NRBC x10^3 (test code = See_Comment [Au tomated message] The [id number]) system which [employer] nerated this result transmit uche reference range: 10*3/?L. The reference range was not u sed to interpret this result as normal/abnormal . GRAN MAT (NEUT) % (test code 69.0 % = 770-8) IMM GRAN % (test code = 0.40 % [id number]) LYMPH % (test code = 736-9) 25.4 % MONO % (test code = 5905-5) 4.6 % EOS % (test code = 713-8) 0.2 % BASO % (test code = 706-2) 0.4 % GRAN MAT x10^3(ANC) (test 6.90 10*3/uL 1.88-7.09 code = 8650113743) IMM GRAN x10^3 (test code = 0.04 10*3/uL 0.00-0.06 3071901083) LYMPH x10^3 (test code = 2.54 10*3/uL 1.32-3.29 731-0) MONO x10^3 (test code = 0.46 10*3/uL 0.33-0.92 742-7) EOS x10^3 (test code = 0.03-0.39 L 711-2) BASO x10^3 (test code = 0.04 10*3/uL 0.01-0.07 704-7) Lab Interpretation (test Abnormal code = 55195-3) [id number] 18:05:00 Test Item Value Reference Range Interpretation Comments POCT PREG (test code = 1605) Negative On board controls acceptable with Yes C Line (test code = 3574) POCT PREG LOT # (test code = 3575) [id number] POCT PREG TEST DATE (test 09-08-2024 code = 3576) Lab Interpretation (test code = Normal 16573-0) [facility] [id number] 20:27:33 Test Item Value Reference Range Interpretation Comments TROPONIN I (test code = <=0.034 [id number]) ANGI (test code = ANGI) Reference (Normal) [...] biotin. Lab Interpretation Normal (test code = 30147-3) [facility] Metabolic [id number] 20:18:51 Test Item Value Reference Range Interpretation Comments NA (test code = 132 mmol/L 135-145 L [id number]) K (test code = 4.1 mmol/L 3.5-5.0 2531094430) CL (test code = 98 mmol/L 98-108 6347809815) CO2 TOTAL (test code = 26 mmol/L 23-31 4128777273) AGAP (test code = 8 2-16 9648666115) BUN (test code = 12 mg/dL 7-23 2432513848) GLUCOSE (test code = 79 mg/dL 70-110 3408931552) CREATININE (test code = 0.58 mg/dL 0.50-1.04 4168201763) TOTAL BILI (test code = 0.4 mg/dL 0.1-1.2 1391780893) CALCIUM (test code = 9.0 mg/dL 8.6-10.6 3675771029) T PROTEIN (test code = 7.4 g/dL 6.3-8.2 6077689701) ALBUMIN (test code = 4.5 g/dL 3.5-5.0 3192725568) ALK PHOS (test code = 62 U/L 34-122 2479535236) ALTv (test code = 23 U/L 5-35 1742-6) AST(SGOT) (test code = 31 U/L 13-40 2161339579) eGFR (test code = 122.1 mL/min/1.73m2 8215312297) ANGI (test code = ANGI) Association of [...] tests). Lab Interpretation Abnormal (test code = 12758-4) [facility] CenterLip[facility], [id number] 20:18:51 Test Item Value Reference Range Interpretation Comments LIPASE (test code = 3159770152) 186 U/L 0-220 Lab Interpretation (test code = Normal 29045-9) [facility] with [id number] 19:39:40 Test Item Value Reference Range Interpretation Comments WBC (test code = 5.62 See_Comment [Automated 3057-2) message] The sy stem which generated this result transmitted reference range : 4.30 - 11.10 10*3/?L. The reference range was not used to interpret this result as normal/abnormal . RBC (test code = 4.24 See_Comment [Automated 205-8) message] The sy stem which generated this [...] RDW-SD (test code = 44.1 fL 39.0-49.9 83835-2) RDW-CV (test code = 13.2 % 12.0-15.5 788-0) PLT (test code = 277 See_Comment [Automated 777-3) message] The sy stem which generated this result transmitted reference range : 166 - 358 10*3/ ?L. The reference r dagoberto was not used to interpret this result as normal/abnormal . MPV (test code = 8.5 fL 9.5-12.9 L 75432-5) NRBC/100 WBC (test 0.0 See_Comment [Automat ed code = 7909644343) message] The system which generated this result transmitted reference range : 0.0 - 10.0 /100 WBCs. The refer ence range was not u sed to interpret th is result as normal/abnormal . NRBC x10^3 (test code See_Comment [Auto mated = 1679323486) message] The s ystem which generated this result transmitted reference range : 10*3/?L. The reference range was not used to interpret this result as normal/abnormal . GRAN MAT (NEUT) % 46.4 % (test code = 770-8) IMM GRAN % (test code 0.90 % = 7005642266) LYMPH % (test code = 38.6 % 736-9) MONO % (test code = 12.5 % 5905-5) EOS % (test code = 0.7 % 713-8) BASO % (test code = 0.9 % 706-2) GRAN MAT x10^3(ANC) 2.61 10*3/uL 1.88-7.09 (test code = 8864493940) IMM GRAN x10^3 (test 0.05 10*3/uL 0.00-0.06 code = 8113596528) LYMPH x10^3 (test code 2.17 10*3/uL 1.32-3.29 = 731-0) MONO x10^3 (test code 0.70 10*3/uL 0.33-0.92 = 742-7) EOS x10^3 (test code = 0.04 10*3/uL 0.03-0.39 711-2) BASO x10^3 (test code 0.05 10*3/uL 0.01-0.07 = 704-7) Lab Interpretation Abnormal (test code = 29246-2) [facility] [id number] 19:34:00 Test Item Value Reference Range Interpretation Comments POCT PREG (test code = 1605) Negative On board controls acceptable with Yes C Line (test code = 3574) POCT PREG LOT # (test code = 1609) 088750 POCT PREG TEST DATE (test 04/13/2024 code = 3576) Lab Interpretation (test code = Normal 30945-5) [facility]. METABOLIC PANEL (55968)2023-01-15 15:36:17 Test Item Value Reference Range Interpretation Comments NA (test code = 139 mmol/L 135-145 6415174133) K (test code = 4.7 mmol/L 3.5-5.0 3407101687) CL (test code = 103 mmol/L 98-108 5248741450) CO2 TOTAL (test code 28 mmol/L 23-31 = 1781927611) AGAP (test code = 8 2-16 4112024753) BUN (test code = 14 mg/dL 7-23 4678392880) GLUCOSE (test code = 75 mg/dL 70-110 6504288463) CREATININE (test code 0.72 mg/dL 0.50-1.04 = 7241522445) TOTAL BILI (test code 0.4 mg/dL 0.1-1.1 = 4577400949) CALCIUM (test code = 9.4 mg/dL 8.6-10.6 8357283349) T PROTEIN (test code 7.4 g/dL 6.3-8.2 = 4950688233) ALBUMIN (test code = 4.5 g/dL 3.5-5.0 4230911863) ALK PHOS (test code = 58 U/L 34-122 3587447410) ALTv (test code = 22 U/L 5-35 1742-6) AST(SGOT) (test code 24 U/L 13-40 = 4294710347) eGFR (test code = 95.1 mL/min/1.73m2 8685462024) ANGI (test code = ANGI) Association of [...] or urine or abnormalities in imaging tests). [facility]17 Test Item Value Reference Range Interpretation Comments LIPASE (test code = 4794730809) 93 U/L 0-220 Lab Interpretation (test code = Normal 87099-7) [facility] WITH [id number] 15:19:14 Test Item Value Reference Range Interpretation Comments WBC (test code = 7.99 See_Comment [Automated 8487-2) message] The sy stem which generated this result transmitted reference range : 4.30 - 11.10 10*3/?L. The reference range was not used to interpret this result as normal/abnormal . RBC (test code = 4.24 See_Comment [Automated 305-6) message] The sy stem which generated this [...] RDW-SD (test code = 42.5 fL 39.0-49.9 55446-2) RDW-CV (test code = 12.9 % 12.0-15.5 788-0) PLT (test code = 317 See_Comment [Automated 777-3) message] The sy stem which generated this result transmitted reference range : 166 - 358 10*3/ ?L. The reference r dagoberto was not used to interpret this result as normal/abnormal . MPV (test code = 8.8 fL 9.5-12.9 L 86825-1) NRBC/100 WBC (test 0.0 See_Comment [Automat ed code = 4380988362) message] The system which generated this result transmitted reference range : 0.0 - 10.0 /100 WBCs. The refer ence range was not u sed to interpret th is result as normal/abnormal . NRBC x10^3 (test code See_Comment [Auto mated = 2530068531) message] The s ystem which generated this result transmitted reference range : 10*3/?L. The reference range was not used to interpret this result as normal/abnormal . GRAN MAT (NEUT) % 55.7 % (test code = 770-8) IMM GRAN % (test code 0.30 % = 6374267530) LYMPH % (test code = 34.0 % 736-9) MONO % (test code = 8.1 % 5905-5) EOS % (test code = 1.0 % 713-8) BASO % (test code = 0.9 % 706-2) GRAN MAT x10^3(ANC) 4.45 10*3/uL 1.88-7.09 (test code = 1428697080) IMM GRAN x10^3 (test 0.00-0.06 code = 8740724506) LYMPH x10^3 (test code 2.72 10*3/uL 1.32-3.29 = 731-0) MONO x10^3 (test code 0.65 10*3/uL 0.33-0.92 = 742-7) EOS x10^3 (test code = 0.08 10*3/uL 0.03-0.39 711-2) BASO x10^3 (test code 0.07 10*3/uL 0.01-0.07 = 704-7) Lab Interpretation Abnormal (test code = 07890-5) [facility] [id number] 16:38:09 Test Item Value Reference Range Interpretation Comments POCT Creatinine (test code = 0.7 mg/dL 0.5-1.0 6419009869) Lab Interpretation (test code = Normal 74780-0) [facility] Center[facility] STIMULATING [id number] 17:16:01 Test Item Value Reference Range Interpretation Comments TSH (test code = 3.96 See_Comment [Automated message] 5834405827) The system [employer] generated this result transmitted ref erence range: 0.45 - 4 .70 mIU/L. The refe rence range was not u sed to interpret this result as normal/abnor mal. Lab Interpretation (test Normal code = 26257-9) [facility]-[id number] 11:33:33 Test Item Value Reference Interpretation Comments Range D-DIMER (test code = See_Comment [Autom ated 4489798892) message] The system which generated this result [...] diagnosis. Lab Interpretation Normal (test code = 29720-4) [facility] [id number] 10:57:27 Test Item Value Reference Range Interpretation Comments TROPONIN I (test code = 0.012 ng/mL <=0.034 9457527922) ANGI (test code = ANGI) Reference (Normal) [...] biotin. Lab Interpretation Normal (test code = 54376-3) [facility] [id number] 09:04:18 Test Item Value Reference Range Interpretation Comments TROPONIN I (test code = 0.010 ng/mL <=0.034 8415321075) ANGI (test code = ANGI) Reference (Normal) [...] biotin. Lab Interpretation Normal (test code = 18455-2) [facility] WITH [id number] 09:03:38 Test Item Value Reference Range Interpretation [...] (test code = 36.7 fL 39.0-49.9 L 02300-4) RDW-CV (test code = 11.6 % 12.0-15.5 L 788-0) PLT (test code = 317 See_Comment [Automated 777-3) message] The sy stem which generated this result transmitted reference range : 166 - 358 10*3/ ?L. The reference r dagoberto was not used to interpret this result as normal/abnormal . MPV (test code = 8.8 fL 9.5-12.9 L 14503-2) NRBC/100 WBC (test 0.0 See_Comment [Automat ed code = 5533199810) message] The system which generated this result transmitted reference range : 0.0 - 10.0 /100 WBCs. The refer ence range was not u sed to interpret th is result as normal/abnormal . NRBC x10^3 (test code See_Comment [Auto mated = 4990878287) message] The s ystem which generated this result transmitted reference range : 10*3/?L. The reference range was not used to interpret this result as normal/abnormal . GRAN MAT (NEUT) % 49.3 % (test code = 770-8) IMM GRAN % (test code 0.50 % = 7425956828) LYMPH % (test code = 42.6 % 736-9) MONO % (test code = 6.3 % 5905-5) EOS % (test code = 0.6 % 713-8) BASO % (test code = 0.7 % 706-2) GRAN MAT x10^3(ANC) 5.32 10*3/uL 1.88-7.09 (test code = 7824098638) IMM GRAN x10^3 (test 0.05 10*3/uL 0.00-0.06 code = 7285805303) LYMPH x10^3 (test code 4.58 10*3/uL 1.32-3.29 H = 731-0) MONO x10^3 (test code 0.68 10*3/uL 0.33-0.92 = 742-7) EOS x10^3 (test code = 0.06 10*3/uL 0.03-0.39 711-2) BASO x10^3 (test code 0.07 10*3/uL 0.01-0.07 = 704-7) Lab Interpretation Abnormal (test code = 79490-6) [facility]. METABOLIC PANEL (32905)2022-12-14 08:52:54 Test Item Value Reference Range Interpretation Comments NA (test code = 137 mmol/L 135-145 2856075959) K (test code = 3.9 mmol/L 3.5-5.0 3715718745) CL (test code = 103 mmol/L 98-108 8712385115) CO2 TOTAL (test code 25 mmol/L 23-31 = 3729835581) AGAP (test code = 9 2-16 3468818031) BUN (test code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
--- NOTE | 2023-07-07 02:48 | ER ---
Nurse's Notes [facility] Name: Lona aMrie Age: 33 yrs Sex: Female : 1990 Arrival Date: 07/07/2023 Time: 01:41 Bed 2 Private MD: Diagnosis: Anxiety disorder, unspecified;Acute anxiety attack Presentation: 07/07 01:58 Chief complaint: Patient states: ANXIETY, CHEST BURNING AND CAN'T SLEEP. STATES SHE WAS jj7 SEEN HERE IN THE ER EARLIER TODAY. REFUSED MEDS OFFERED IN ER. 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 NOW WANTS TO BE SEEN AGAIN AND GET TREATED. Coronavirus screen: At this time, the client does not indicate any symptoms associated with coronavirus-19. Ebola Screen: No symptoms or risks identified at this time. Initial Sepsis Screen: Does the patient meet any 2 criteria? HR > 90 bpm. Yes Does the patient have a suspected source of infection? No. Patient's initial sepsis screen is negative. Risk Assessment: Do you want to hurt yourself or someone else? Patient reports no desire to harm self or others. Onset of symptoms was June 28, 2023. 01:58 Method Of Arrival: Ambulatory [facility] 01:58 Acuity: SMITH 3 jj7 Triage Assessment: 02:05 General: Appears in no apparent distress. uncomfortable, Behavior is cooperative, jj7 appropriate for age, anxious, crying. Pain: Complains of pain in back. Cardiovascular: Reports CHEST PRESSURE AND BURNING. 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 - Social history:: Smoking status: Patient reports the use of cigarette tobacco products, denies chronic smoking, but will smoke occasionally, Patient/guardian denies using alcohol, street drugs. - Family history:: not pertinent. Screenin:09 [facility] ED Fall Risk Assessment (Adult) History of falling in the last 3 months, jj7 including since admission No falls in past 3 months (0 pts) Confusion or Disorientation No (0 pts) Intoxicated or Sedated No (0 pts) Impaired Gait No (0 pts) Mobility Assist Device Used No (0 pt) Altered Elimination No (0 pt) Score/Fall Risk Level 0 - 2 = Low Risk Oriented to surroundings, Maintained a safe environment. Abuse screen: Denies threats or abuse. Nutritional screening: No deficits noted. Tuberculosis screening: No symptoms or risk factors identified. Assessment: 02:09 Reassessment: SEE TRIAGE ASSESSMENT. jj7 02:15 General: Appears comfortable, Behavior is cooperative, anxious, Reports anxiety attack. ha1 Pain: Complains of pain in chest Pain does not radiate. Pain currently is 5 out of 10 on a pain scale. Quality of pain is described as pressure, Pain began suddenly. Neuro: Level of Consciousness is awake, alert, obeys commands, Oriented to person, place, time, situation. Cardiovascular: Reports Heart tones S1 S2 present Capillary refill < 3 seconds Patient's skin is warm and dry. Rhythm is sinus rhythm. Respiratory: Airway is patent Respiratory effort is even, unlabored, Respiratory pattern is regular, symmetrical. Derm: Skin is pink, warm \\T\\ dry. Musculoskeletal: Circulation, motion, and sensation intact. Range of motion: intact in all extremities. 02:20 Reassessment: pt. refused IV states " I am just having an anxiety attack. ha1 03:26 Reassessment: Patient and/or family updated on plan of care and expected duration. Pain ha1 level reassessed. Patient is alert, oriented x 3, equal unlabored respirations, skin warm/dry/pink. Patient denies pain at this time. Patient states symptoms have improved. Critical care time stopped, patient has stabilized. Vital Signs: 01:58 BP 141 / 87; Pulse 106; Resp 20; Temp 98.7; Pulse Ox 99% ; Weight 67.59 kg; Height 5 jj7 ft. 3 in. ; Pain 10/10; 02:15 BP 135 / 87; Pulse 85; Resp 17 S; Pulse Ox 98% on R/A; ha1 03:20 BP 129 / 78; Pulse 81; Resp 17 S; Pulse Ox 100% on R/A; ha1 01:58 Body Mass Index 26.39 (67.59 kg, 160.02 cm) [facility] 01:58 Pain Scale: Adult [facility] ED Course: 01:48 Patient arrived in ED. gm2 02:02 Oleg Schultz MD is Attending Physician. sp4 02:05 Triage completed. j7 02:05 Arm band placed on right wrist. j7 02:10 Patient has correct armband on for positive identification. Bed in low position. Call ha1 light in reach. Side rails up X 1. 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 ha1 02:10 Client placed on continuous cardiac and pulse oximetry monitoring. NIBP monitoring ha1 applied. 02:19 XRAY Chest (1 view) In Process Unspecified. EDMS 03:28 No provider procedures requiring assistance completed. Patient did not have IV access ha1 during this emergency room visit. Patient maintains SpO2 saturation greater than 95% on room air. Administered Medications: 02:50 Drug: LORazepam PO 2 mg PO once Route: PO; ha1 03:26 Follow up: Response: No adverse reaction; Anxiety decreased; RASS: Alert and Calm (0) ha1 Medication: 02:09 VIS not applicable for this client. [facility] Outcome: 02:48 Discharge ordered by . sp4 03:28 Discharged to home ambulatory, with family, ha1 03:28 Condition: stable 03:28 Discharge instructions given to patient, family, Instructed on discharge instructions, follow up and referral plans. Demonstrated understanding of instructions, follow-up care, 03:31 Patient left the ED. ha1 Signatures: Dispatcher [employer] EDIL Jacquelyn Bunch RN RN ha1 Lanny Bingham RN RN jjOleg Greene MD MD sp4 Fern Garcia 2
--- NOTE | 2023-07-07 02:48 | EDPHYS ---
Physician Documentation [facility] Name: Lona Marie Age: 33 yrs Sex: Female : 1990 Arrival Date: 07/07/2023 Time: 01:41 Bed 2 Private MD: ED Physician Oleg Schultz HPI: 07/07 02:45 This 33 yrs old Female presents to ER via Ambulatory with complaints of sp4 Anxiety, Chest Pain. 02:50 33-year-old female presents with acute worsening anxiety and associated chest pain. sp4 Patient has visited emergency department yesterday on 07/06/2023 and was discharged with diagnosis of anxiety attack with p.o. clonazepam as needed prescription. Patient states she has not taken her clonazepam. Patient was here also on 07/02/2023 and had a full cardiac work-up which was negative.. 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 - Social history:: Smoking status: Patient reports the use of cigarette tobacco products, denies chronic smoking, but will smoke occasionally, Patient/guardian denies using alcohol, street drugs. - Family history:: not pertinent. ROS: 02:50 Constitutional: Negative for fever, chills, and weight loss, Psych: Negative for sp4 depression, positive for anxiety and panic positive for chest pain 02:50 All other systems are negative, Exam: 02:50 Constitutional: This is a well developed, well nourished patient who is awake, alert, sp4 anxious and tearful, emotional upset Head/Face: Normocephalic, atraumatic. Eyes: Pupils equal round and reactive to light, extra-ocular motions intact. Lids and lashes normal. Conjunctiva and sclera are not injected. Cornea within normal limits. Periorbital areas with no swelling, redness, or edema. ENT: Nares patent. No nasal discharge, no septal abnormalities noted. Tympanic membranes are normal and external auditory canals are clear. Oropharynx with no redness, swelling, or masses, exudates, or evidence of obstruction, uvula midline. Mucous membranes moist. Neck: Trachea midline, no thyromegaly or masses palpated, and no cervical lymphadenopathy. Supple, full range of motion without nuchal rigidity, or vertebral point tenderness. Chest/axilla: Normal chest wall appearance and motion. Nontender with no deformity. No lesions are appreciated. Cardiovascular: Regular rate and rhythm with a normal S1 and S2. No gallops, murmurs, or rubs. Normal PMI, no JVD. No pulse deficits. Respiratory: Lungs have equal breath sounds bilaterally, clear to auscultation and percussion. No rales, rhonchi or wheezes noted. No increased work of breathing, no retractions or nasal flaring. Abdomen/GI: Soft, non-tender, with normal bowel sounds. No distension or tympany. No guarding or rebound. No evidence of tenderness throughout. Back: No spinal tenderness. No costovertebral tenderness. Skin: Warm, dry with normal turgor. Normal color with no rashes, no lesions, and no evidence of cellulitis. MS/ Extremity: Pulses equal, no cyanosis. Neurovascular intact. Full, normal range of motion. Neuro: Awake and alert, GCS 15, oriented to person, place, time, and situation. Cranial nerves II-XII grossly intact. Motor strength 5/5 in all extremities. Sensory grossly intact. Psych: Awake, alert, with orientation to person, place and time. Positive for anxiety and emotional upset 02:50 ECG was reviewed by the Attending Physician. EKG time 0 220, normal sinus rhythm at the sp4 rate of 82 Vital Signs: 01:58 BP 141 / 87; Pulse 106; Resp 20; Temp 98.7; Pulse Ox 99% ; Weight 67.59 kg; Height 5 jj7 ft. 3 in. ; Pain 10/10; 02:15 BP 135 / 87; Pulse 85; Resp 17 S; Pulse Ox 98% on R/A; ha1 03:20 BP 129 / 78; Pulse 81; Resp 17 S; Pulse Ox 100% on R/A; ha1 01:58 Body Mass Index 26.39 (67.59 kg, 160.02 cm) [facility] 01:58 Pain Scale: Adult [facility] MDM: 02:30 Patient medically screened. sp4 02:52 Differential diagnosis: acute pericarditis, anxiety, chest wall pain, costochondritis, sp4 gastritis. Data reviewed: vital signs, nurses notes, old medical records, EKG. ED course: Patient is feeling improved after p.o. lorazepam. Patient is stable for discharge home with advised to take her as needed clonazepam and also see her psychiatrist.. 07/07 02:02 Order name: XRAY Chest (1 view) 4 07/07 02:02 Order name: EKG; Complete Time: 02:03 sp4 07/07 02:02 Order name: Cardiac monitoring; Complete Time: 02:32 sp4 07/07 02:02 Order name: EKG - Nurse/Tech; Complete Time: 02:32 sp4 07/07 02:02 Order name: O2 Per Protocol; Complete Time: 02:32 sp4 07/07 02:02 Order name: O2 Sat Monitoring; Complete Time: 02:32 sp4 EC:50 Rate is 82 beats/min. Rhythm is regular, Normal Sinus Rhythm. QRS [place] is Normal. [place] sp4 interval is normal. QRS interval is normal. QT interval is normal. No Q waves. T waves are Normal. No ST changes noted. Clinical impression: Normal ECG. Interpreted by me. Reviewed by me. Administered Medications: 02:50 Drug: LORazepam PO 2 mg PO once Route: PO; ha1 03:26 Follow up: Response: No adverse reaction; Anxiety decreased; RASS: Alert and Calm (0) ha1 Disposition Summary: 07/07/23 02:48 Discharge Ordered Notes: Location: Home sp4 Problem: new sp4 Symptoms: have improved sp4 Condition: Stable sp4 Diagnosis - Anxiety disorder, unspecified sp4 - Acute anxiety attack sp4 Followup: sp4 - With: Private Physician - When: 7 - 10 days - Reason: Recheck today's complaints Discharge Instructions: - Discharge Summary Sheet sp4 - Panic Attack sp4 Forms: - Work release form ha1 - Patient Portal Instructions sp4 Signatures: Dispatcher [employer] Jacquelyn Smalls RN RN ha1 Lanny Bingham RN RN jj7 Oleg Schultz MD MD sp4
[2023-07-07] MEDS ORDERED: LORAZEPAM 1 MG TABLET ONE (03:04)
[2023-07-07 03:35] VITALS: TEMP 98.7
[2023-07-07 03:38] VITALS: BP 129/78; O2SAT 100
--- NOTE | 2023-07-07 14:20 | RAD REPORT ---
EXAM DESCRIPTION: XR Chest, 1 View CLINICAL HISTORY: The patient is 33 years old and is Female; CHEST PAIN TECHNIQUE: Frontal view of the chest. COMPARISON: No relevant prior studies available. FINDINGS: Lungs: Unremarkable. No consolidation. Pleural space: Unremarkable. No pneumothorax. Heart: Unremarkable. Mediastinum: Unremarkable. Bones/joints: No acute findings. IMPRESSION: No acute findings in the chest. Electronically signed by: Burak Traylor MD 07/07/2023 2:26 AM CDT Due to temporary technical issues with the PACS/Fluency reporting system, reports are being signed by the in house radiologists without review as a courtesy to insure prompt reporting. The interpreting radiologist is fully responsible for the content of the report.
--- NOTE | 2023-07-07 18:07 | EKG ---
Test Date: 2023-07-06 Test Time: 10:43:11 Clinical Researcher: NANI MEASUREMENT RESULTS: Intervals: Rate: 85 MO: 132 QRSD: 70 QT: 354 QTc: 421 [place]: P: 65 MO: 132 QRS: 88 T: 65 INTERPRETIVE STATEMENTS: Normal sinus rhythm with sinus arrhythmia Normal ECG Compared to ECG 07/02/2023 18:30:11 No significant changes Electronically Signed On 07-07-23 18:03:54 CDT by Alan Owen
--- NOTE | 2023-07-08 09:50 | EKG ---
Test Date: 2023-07-07 Test Time: 02:20:10 Brake Tester: ITALIA MEASUREMENT RESULTS: Intervals: Rate: 82 [place]: 148 QRSD: 72 QT: 352 QTc: 411 [place]: P: 63 [place]: 148 QRS: 83 T: 67 INTERPRETIVE STATEMENTS: Normal sinus rhythm with sinus arrhythmia Normal ECG Compared to ECG 07/06/2023 10:43:11 No significant changes Electronically Signed On 07-08-23 09:46:46 CDT by Alan Owen
== END 2023-07-07 03:31 | disposition home or self-care (01) ==
LOC: ER 01:41
DX: F41.0 Panic disorder [episodic paroxysmal anxiety] (principal); F41.9 Anxiety disorder, unspecified; Z88.0 Allergy status to penicillin; Z88.1 Allergy status to other antibiotic agents; Z88.2 Allergy status to sulfonamides; Z88.5 Allergy status to narcotic agent; Z88.8 Allergy status to other drugs, medicaments and biological substances; Z91.048 Other nonmedicinal substance allergy status
CPT/HCPCS: 71045; 93005; 99284

== ENCOUNTER 2023-07-12 13:33 | Emergency (ER) | payer OTHER ==
--- OUTSIDE RECORDS SUMMARY | 2023-07-12 13:57 | XMS REPORT | Continuity of Care Document ---
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 clonazePAM 2022-09 Yes clonazepam U nivers 0.5 mg 0-05 0.5 mg ity of tablet 10:54: tablet [place] [address] TAKE 1 Medical TABLET BY Branch MOUTH [...] 800 mg ity of tablet 10:54: tablet [address] levETIRAcet 2022-09 Yes TWICE Unive rs am 500 mg 0-05 DAILY. ity of tablet 10:54: [facility] famotidine 2022-09 Yes famotidine U nivers 20 mg 0-05 20 mg ity of tablet 10:54: tablet [address] [place] [address] clonazePAM 2022-09 Yes clonazepam U nivers 0.5 [...] 800 mg ity of tablet 10:54: tablet [address] [place] [address] levETIRAcet 2022-09 Yes TWICE Unive rs am 500 mg 0-05 DAILY. ity of tablet 10:54: [facility] famotidine 2022-09 Yes famotidine U nivers 20 mg 0-05 20 mg ity of tablet 10:54: tablet [address] [place] [address] clonazePAM 2022-09 Yes clonazepam U nivers 0.5 mg 0-05 0.5 mg ity of tablet 10:54: tablet [place] [address] TAKE 1 Medical TABLET BY Branch MOUTH [...] 800 mg ity of tablet 10:54: tablet [address] levETIRAcet 2022-09 Yes TWICE Unive rs am 500 mg 0-05 DAILY. ity of tablet 10:54: [address] famotidine 2022-09 Yes famotidine U nivers 20 mg 0-05 20 mg ity of tablet 10:54: tablet [address] clonazePAM 2022-09 Yes clonazepam U nivers 0.5 mg 0-05 0.5 mg ity of tablet 10:54: tablet [place] [address] TAKE 1 Medical TABLET BY Branch MOUTH [...] 800 mg ity of tablet 10:54: tablet [facility] Branch levETIRAcet 2022-09 Yes TWICE Unive rs am 500 mg 0-05 DAILY. ity of tablet 10:54: Medical Branch famotidine 2022-09 Yes famotidine U nivers 20 mg 0-05 20 mg ity of tablet 10:54: tablet [address] [place] [address] clonazePAM 2022-09 Yes clonazepam U nivers 0.5 [...] ical ion Branch aerosol inhaler azithromyci Yes [id number] Take two Univers n 6-27 [id number] on first ity of (ZITHROMAX 00:00: day, take [place] Z-OK) 250 00 one a day Medi shanice mg tablet afterwards Bran ch azelastine Yes [id number] 1{spray Use 1 [facility] 137 mcg 6-27 131290 } [place] in ity of (0.1 %) 00:00: each [place] nasal spray 00 nostril in [place] [facility] the Branch morning and 1 [place] in the evening. Use in each nostril as directed azithromyci 2023-0 Yes [id number] Take two Univers n 6-27 [id number] on first ity of (ZITHROMAX 00:00: day, take [place] Z-OK) 250 00 one a day Medi shanice mg tablet afterwards Bran ch azelastine 2023-0 Yes [id number] 1{spray Use 1 [facility] 137 mcg 6-27 779914 } [place] in ity of (0.1 %) 00:00: each [place] nasal spray 00 nostril in [facility] morning and 1 [place] in the evening. Use in each nostril as directed azithromyci 2023-0 Yes [id number] Take two Univers n 6-27 [id number] on first ity of (ZITHROMAX 00:00: day, take [place] Z-OK) 250 00 one a day Medi shanice mg tablet afterwards Bran ch azelastine 2023-0 Yes [id number] 1{spray Use 1 [facility] 137 mcg 6-27 [id number] } [place] in ity of (0.1 %) 00:00: each [place] nasal spray 00 nostril in [facility] morning and 1 [place] in the evening. Use in each nostril as directed azithromyci 2023-0 Yes [id number] Take two Univers n 6-27 [id number] on first ity of (ZITHROMAX 00:00: day, take [place] Z-OK) 250 00 one a day Medi shanice mg tablet afterwards Bran ch azelastine 2023-0 Yes [id number] 1{spray Use 1 [facility] 137 mcg 6-27 803704 } [place] in ity of (0.1 %) 00:00: each [place] nasal spray 00 nostril in [facility] morning and 1 [place] in the evening. Use in each nostril as directed azithromyci 2023-0 Yes [id number] Take two Univers n 6-27 [id number] on first ity of (ZITHROMAX 00:00: day, take [place] Z-OK) 250 00 one a day Medi shanice mg tablet afterwards Bran ch azelastine 2023-0 Yes [id number] 1{spray Use 1 [facility] 137 mcg 6-27 861747 } [place] in ity of (0.1 %) 00:00: each [place] nasal spray 00 nostril in [facility] dical the Branch morning and 1 [place] in the evening. Use in each nostril as directed azithromyci 2023-0 Yes [id number] Take two Univers n 6-27 [id number] on first ity of (ZITHROMAX 00:00: day, take [place] Z-OK) 250 00 one a day Medi shanice mg tablet afterwards Bran ch azelastine 2023-0 Yes [id number] 1{spray Use 1 [facility] 137 mcg 6 116564 } [place] in ity of (0.1 %) 00:00: each [place] nasal spray 00 nostril in [place] [facility] the Branch morning and 1 [place] in the evening. Use in each nostril as directed azithromyci 2023-0 Yes [id number] Take two Univers n 627 [id number] on first ity of (ZITHROMAX 00:00: day, take [place] Z-OK) 250 00 one a day Medi shanice mg tablet afterwards Bran ch azelastine 2023-0 Yes [id number] 1{spray Use 1 [facility] 137 mcg 6 593546 } [place] in ity of (0.1 %) 00:00: each [place] nasal spray 00 nostril in [place] [facility] the Branch morning and 1 [place] in the evening. Use in each nostril as directed azithromyci 2023-0 Yes [id number] Take two Univers n 6-27 [id number] on first ity of (ZITHROMAX 00:00: day, take [place] Z-OK) 250 00 one a day Medi shanice mg tablet afterwards Bran ch azelastine 2023-0 Yes [id number] 1{spray Use 1 Univers 137 mcg 627 008416 } [place] in ity of (0.1 %) 00:00: each [place] nasal spray 00 nostril in [place] [facility] the Branch morning and 1 [place] in the evening. Use in each nostril as directed azithromyci 2023-0 Yes [id number] Take two Univers n 627 [id number] on first ity of (ZITHROMAX 00:00: day, take [place] Z-OK) 250 00 one a day Medi shanice mg tablet afterwards Bran ch azelastine 2023-0 Yes [id number] 1{spray Use 1 [facility] 137 mcg 6-27 629867 } [place] in ity of (0.1 %) 00:00: each [place] nasal spray 00 nostril in [facility] dical the Branch morning and 1 [place] in the evening. Use in each nostril as directed azithromyci 2022-0 Yes [id number] Take two Univers n 6-27 [id number] on first ity of (ZITHROMAX 00:00: day, take [place] Z-OK) 250 00 one a day Medi shanice mg tablet afterwards Bran ch azelastine 2022-0 Yes [id number] 1{spray Use 1 [facility] 137 mcg 6-27 410012 } [place] in ity of (0.1 %) 00:00: each [place] nasal spray 00 nostril in [place] [facility] the Branch morning and 1 [place] in the evening. Use in each nostril as directed azelastine 2022-0 Yes [id number] 1{spray Use 1 [facility] 137 mcg 6-27 229478 } [place] in ity of (0.1 %) 00:00: each [place] nasal spray 00 nostril in [place] [facility] the Branch morning and 1 [place] in the evening. Use in each nostril as directed azelastine 3-0 Yes [id number] 1{spray Use 1 [facility] 137 mcg 6-27 583137 } [place] in ity of (0.1 %) 00:00: each [place] nasal spray 00 nostril in [facility] dical the Branch morning and 1 [place] in the evening. Use in each nostril as directed azelastine 3-0 Yes [id number] 1{spray Use 1 [facility] 137 mcg 6-27 [id number] } [place] in ity of (0.1 %) 00:00: each [place] nasal spray 00 nostril in [place] [facility] the Branch morning and 1 [place] in the evening. Use in each nostril as directed azelastine 2023-0 Yes [id number] 1{spray Use 1 [facility] 137 mcg 6-27 007201 } [place] in ity of (0.1 %) 00:00: each [place] nasal spray 00 nostril in [place] [facility] the Branch morning and 1 [place] in the evening. Use in each nostril as directed azelastine 2023-0 Yes [id number] 1{spray Use 1 [facility] 137 mcg 6-27 298074 } [place] in ity of (0.1 %) 00:00: each [place] nasal spray 00 nostril in [facility] dical the Branch morning and 1 [place] in the evening. Use in each nostril as directed azelastine 2023-0 Yes [id number] 1{spray Use 1 [facility] 137 mcg 6-27 603502 } [place] in ity of (0.1 %) 00:00: each [place] nasal spray 00 nostril in [facility] dical the Branch morning and 1 [place] in the evening. Use in each nostril as directed azelastine 2023-0 Yes [id number] 1{spray Use 1 [facility] 137 mcg 6-27 [id number] } [place] in ity of (0.1 %) 00:00: each [place] nasal spray 00 nostril in [facility] dical the Branch morning and 1 [place] in the evening. Use in each nostril as directed azelastine 2023-0 Yes [id number] 1{spray Use 1 [facility] 137 mcg 6-27 432669 } [place] in ity of (0.1 %) 00:00: each [place] nasal spray 00 nostril in [facility] dical the Branch morning and 1 [place] in the evening. Use in each nostril as directed azelastine 2023-0 Yes [id number] 1{spray Use 1 [facility] 137 mcg 6-27 006023 } [place] in ity of (0.1 %) 00:00: each [place] nasal spray 00 nostril in [place] [facility]ical the Branch morning and 1 [place] in the evening. Use in each nostril as directed azelastine 2023-0 Yes [id number] 1{spray Use 1 [facility] 137 mcg 6-27 420412 } [place] in ity of (0.1 %) 00:00: each [place] nasal spray 00 nostril in [facility] dical the Branch morning and 1 [place] in the evening. Use in each nostril as directed azithromyci 2022-0 2022- No [id number] Take two Univers n 6-27 10-05 [id number] on first ity of (ZITHROMAX 00:00: 00:00 day, take [place] Z-OK) 250 00 :00 one a day Medi shanice mg tablet afterwards Bran ch azithromyci 2022-0 2022- No [id number] Take two Univers n 6-27 10-05 [id number] on first ity of (ZITHROMAX 00:00: 00:00 day, take [place] Z-OK) 250 00 :00 one a day Medi shanice mg tablet afterwards Bran ch morpHINE (4 2022- No 4mg 4 mg, Slow Univers mg/mL) 01-2118 IV Push, ity of injection 4 23:45: 23:08 ONCE, 1 [place] mg 00 :00 dose, On Medical [facility] 01/21/23 at 1845, Routine ondansetron 2022- No 4mg 4 mg, Slow Univers (ZOFRAN 01-2118 IV Push, ity of (PF)) 23:00: 23:08 ONCE, 1 [place] injection 4 00 :00 dose, On Medi shanice mg [facility] 01/21/23 at 1800, LUPE NaCl 0.9% 2022- No 1000mL at 999 Uni vers (NS) IV 01-21 mL/hr, ity of infusion 21:30: 23:45 Intravenou [place] 1,000 mL 00 :00 s, ONCE, 1 Medic al dose, On [facility] 01/21/23 at 1630, Routine FENTanyl PF 2022- No 50ug 50 mcg, Un travis (SUBLIMAZE 01-21 Slow IV ity o f (PF)) 21:15: 20:56 Push, [place] injection 00 :00 ONCE, 1 Medical 50 mcg dose, On [facility] 01/21/23 at 1615, Routine iopamidol 2022- No [id number] 50mL 50 mL, Univers (ISOVUE 01-2118 Intravenou ity o f 370-500 mL) 21:00: 21:02 s, ONCE, 1 [place] injection 00 :00 dose, On Medica l 50 mL [facility] 01/21/23 at 1600, Routine ondansetron 2022- No 4mg 4 mg, Slow Univers (ZOFRAN 01-2118 IV Push, ity of (PF)) 20:30: 20:55 ONCE, 1 [place] injection 4 00 :00 dose, On Medi shanice mg [facility] 01/21/23 at 1530, LUPE sucralfate 2022-2022- No [id number] 1g Take 1 Univers 1 gram 01-21 [...] shanice 1:1:1 Fri Branch ([facility] 01/15/23 at [facility]) 0600, oral Routine suspension 15 mL maalox:diph 2022-0 Yes [id number] 15mL Take 15 mL Univers enhydrAMINE 5-12 by mouth ity of :lidocaine 00:00: as needed [place] 2 % viscous 00 for Oral Medi shanice 1:1:1 mucositis Branch (EPIGASTRI C PAIN). ondansetron 2022-0 Yes [id number] 4mg Take 1 Univers (ZOFRAN) 4 5-12 tablet by ity of mg tablet 00:00: mouth [place] 00 every 8 Medical (eight) Branch hours as needed for Nausea and Vomiting (N/V). maalox:diph 2022-0 Yes [id number] 15mL Take 15 mL Univers enhydrAMINE 5-12 by mouth ity of :lidocaine 00:00: as needed [place] 2 % viscous 00 for Oral Medi shanice 1:1:1 mucositis Branch (EPIGASTRI C PAIN). ondansetron 2022-0 Yes [id number] 4mg Take 1 Univers (ZOFRAN) 4 5-12 tablet by ity of mg tablet 00:00: mouth [place] 00 every 8 Medical (eight) Branch hours as needed for Nausea and Vomiting (N/V). proMETHazin 2022-0 Yes [id number] 25mg Take 1 Univers e 25 mg 5-12 tablet by ity of tablet 00:00: mouth [place] 00 every 6 Medical (six) Branch hours as needed for Nausea and Vomiting (N/V). sucralfate 2022-0 Yes [id number] 1g Take 1 U nivers 1 gram 5-12 tablet by ity of tablet 00:00: mouth [place] 00 before Medical meals and Branch at bedtime. esomeprazol 3-0 Yes [id number] 40mg Take 1 Univers e (NEXIUM) 5-12 capsule by ity of 40 mg 00:00: mouth [place] capsule 00 daily with Medica l breakfast. Branch maalox:diph 2022-0 Yes [id number] 15mL Take 15 mL Univers enhydrAMINE 5-12 by mouth ity of :lidocaine 00:00: as needed [place] 2 % viscous 00 for Oral Medi shanice 1:1:1 mucositis Branch (EPIGASTRI C PAIN). ondansetron 2022-0 Yes [id number] 4mg Take 1 Univers (ZOFRAN) 4 5-12 tablet by ity of mg tablet 00:00: mouth [place] 00 every 8 Medical (eight) Branch hours as needed for Nausea and Vomiting (N/V). proMETHazin 2022-0 Yes [id number] 25mg Take 1 Univers e 25 mg 5-12 tablet by ity of tablet 00:00: mouth [place] 00 every 6 Medical (six) Branch hours as needed for Nausea and Vomiting (N/V). sucralfate 2022-0 Yes [id number] 1g Take 1 U nivers 1 gram 5-12 tablet by ity of tablet 00:00: mouth [place] 00 before Medical meals and Branch at bedtime. esomeprazol 2022-0 Yes [id number] 40mg Take 1 Univers e (NEXIUM) 5-12 capsule by ity of 40 mg 00:00: mouth [place] capsule 00 daily with Medica l breakfast. Branch maalox:diph 2022-0 Yes [id number] 15mL Take 15 mL Univers enhydrAMINE 5-12 by mouth ity of :lidocaine 00:00: as needed [place] 2 % viscous 00 for Oral Medi shanice 1:1:1 mucositis Branch (EPIGASTRI C PAIN). proMETHazin 2022-0 Yes [id number] 25mg Take 1 Univers e 25 mg 5-12 tablet by ity of tablet 00:00: mouth [place] 00 every 6 Medical (six) Branch hours as needed for Nausea and Vomiting (N/V). sucralfate 2022-0 Yes [id number] 1g Take 1 U nivers 1 gram 5-12 tablet by ity of tablet 00:00: mouth [place] 00 before Medical meals and Branch at bedtime. esomeprazol 3-0 Yes [id number] 40mg Take 1 Univers e (NEXIUM) 5-12 capsule by ity of 40 mg 00:00: mouth [place] capsule 00 daily with Medica l breakfast. Branch maalox:diph 3-0 Yes [id number] 15mL Take 15 mL [facility] enhydrAMINE 5-12 by mouth ity of :lidocaine 00:00: as needed [place] 2 % viscous 00 for Oral Medi shanice 1:1:1 mucositis Branch (EPIGASTRI C PAIN). proMETHazin 3-0 Yes [id number] 25mg Take 1 Univers e 25 mg 5-12 tablet by ity of tablet 00:00: mouth [place] 00 every 6 Medical (six) Branch hours as needed for Nausea and Vomiting (N/V). sucralfate 2023-0 Yes [id number] 1g Take 1 U nivers 1 gram 5-12 tablet by ity of tablet 00:00: mouth [place] 00 before Medical meals and Branch at bedtime. esomeprazol 2023-0 Yes [id number] 40mg Take 1 Univers e (NEXIUM) 5-12 capsule by ity of 40 mg 00:00: mouth [place] capsule 00 daily with Medica l breakfast. Branch maalox:diph 3-0 Yes [id number] 15mL Take 15 mL [facility] enhydrAMINE 5-12 by mouth ity of :lidocaine 00:00: as needed [place] 2 % viscous 00 for Oral Medi shanice 1:1:1 mucositis Branch (EPIGASTRI C PAIN). proMETHazin 3-0 Yes [id number] 25mg Take 1 Univers e 25 mg 5-12 tablet by ity of tablet 00:00: mouth [place] 00 every 6 Medical (six) Branch hours as needed for Nausea and Vomiting (N/V). sucralfate 3-0 Yes [id number] 1g Take 1 U nivers 1 gram 5-12 tablet by ity of tablet 00:00: mouth [place] 00 before Medical meals and Branch at bedtime. esomeprazol 3-0 Yes [id number] 40mg Take 1 Univers e (NEXIUM) 5-12 capsule by ity of 40 mg 00:00: mouth [place] capsule 00 daily with Medica l breakfast. Branch maalox:diph 2023-0 Yes [id number] 15mL Take 15 mL [facility] enhydrAMINE 5-12 by mouth ity of :lidocaine 00:00: as needed [place] 2 % viscous 00 for Oral Medi shanice 1:1:1 mucositis Branch (EPIGASTRI C PAIN). proMETHazin 2023-0 Yes [id number] 25mg Take 1 Univers e 25 mg 5-12 tablet by ity of tablet 00:00: mouth [place] 00 every 6 Medical (six) Branch hours as needed for Nausea and Vomiting (N/V). sucralfate 2023-0 Yes [id number] 1g Take 1 U nivers 1 gram 5-12 tablet by ity of tablet 00:00: mouth [place] 00 before Medical meals and Branch at bedtime. esomeprazol 2023-0 Yes [id number] 40mg Take 1 Univers e (NEXIUM) 5-12 capsule by ity of 40 mg 00:00: mouth [place] capsule 00 daily with Medica l breakfast. Branch maalox:diph 3-0 Yes [id number] 15mL Take 15 mL [facility] enhydrAMINE 5-12 by mouth ity of :lidocaine 00:00: as needed [place] 2 % viscous 00 for Oral Medi shanice 1:1:1 mucositis Branch (EPIGASTRI C PAIN). proMETHazin 3-0 Yes [id number] 25mg Take 1 Univers e 25 mg 5-12 tablet by ity of tablet 00:00: mouth [place] 00 every 6 Medical (six) Branch hours as needed for Nausea and Vomiting (N/V). sucralfate 3-0 Yes [id number] 1g Take 1 U nivers 1 gram 5-12 tablet by ity of tablet 00:00: mouth [place] 00 before Medical meals and Branch at bedtime. esomeprazol 3-0 Yes [id number] 40mg Take 1 Univers e (NEXIUM) 5-12 capsule by ity of 40 mg 00:00: mouth [place] capsule 00 daily with Medica l breakfast. Branch maalox:diph 3-0 Yes [id number] 15mL Take 15 mL [facility] enhydrAMINE 5-12 by mouth ity of :lidocaine 00:00: as needed [place] 2 % viscous 00 for Oral Medi shanice 1:1:1 mucositis Branch (EPIGASTRI C PAIN). proMETHazin 2023-0 Yes [id number] 25mg Take 1 Univers e 25 mg 5-12 tablet by ity of tablet 00:00: mouth [place] 00 every 6 Medical (six) Branch hours as needed for Nausea and Vomiting (N/V). sucralfate 2023-0 Yes [id number] 1g Take 1 U nivers 1 gram 5-12 tablet by ity of tablet 00:00: mouth [place] 00 before Medical meals and Branch at bedtime. esomeprazol 2023-0 Yes [id number] 40mg Take 1 Univers e (NEXIUM) 5-12 capsule by ity of 40 mg 00:00: mouth [place] capsule 00 daily with Medica l breakfast. Branch maalox:diph 3-0 Yes [id number] 15mL Take 15 mL [facility] enhydrAMINE 5-12 by mouth ity of :lidocaine 00:00: as needed [place] 2 % viscous 00 for Oral Medi shanice 1:1:1 mucositis Branch (EPIGASTRI C PAIN). proMETHazin 2023-0 Yes [id number] 25mg Take 1 Univers e 25 mg 5-12 tablet by ity of tablet 00:00: mouth [place] 00 every 6 Medical (six) Branch hours as needed for Nausea and Vomiting (N/V). sucralfate 2023-0 Yes [id number] 1g Take 1 U nivers 1 gram 5-12 tablet by ity of tablet 00:00: mouth [place] 00 before Medical meals and Branch at bedtime. esomeprazol 3-0 Yes [id number] 40mg Take 1 Univers e (NEXIUM) 5-12 capsule by ity of 40 mg 00:00: mouth [place] capsule 00 daily with Medica l breakfast. Branch maalox:diph 3-0 Yes [id number] 15mL Take 15 mL [facility] enhydrAMINE 5-12 by mouth ity of :lidocaine 00:00: as needed [place] 2 % viscous 00 for Oral Medi shanice 1:1:1 mucositis Branch (EPIGASTRI C PAIN). proMETHazin 3-0 Yes [id number] 25mg Take 1 Univers e 25 mg 5-12 tablet by ity of tablet 00:00: mouth [place] 00 every 6 Medical (six) Branch hours as needed for Nausea and Vomiting (N/V). sucralfate 2023-0 Yes [id number] 1g Take 1 U nivers 1 gram 5-12 tablet by ity of tablet 00:00: mouth [place] 00 before Medical meals and Branch at bedtime. esomeprazol 2023-0 Yes [id number] 40mg Take 1 Univers e (NEXIUM) 5-12 capsule by ity of 40 mg 00:00: mouth [place] capsule 00 daily with Medica l breakfast. Branch maalox:diph 2023-0 Yes [id number] 15mL Take 15 mL [facility] enhydrAMINE 5-12 by mouth ity of :lidocaine 00:00: as needed [place] 2 % viscous 00 for Oral Medi shanice 1:1:1 mucositis Branch (EPIGASTRI C PAIN). proMETHazin 2022-0 Yes [id number] 25mg Take 1 Univers e 25 mg 5-12 tablet by ity of tablet 00:00: mouth [place] 00 every 6 Medical (six) Branch hours as needed for Nausea and Vomiting (N/V). sucralfate 2022-0 Yes [id number] 1g Take 1 U nivers 1 gram 5-12 tablet by ity of tablet 00:00: mouth [place] 00 before Medical meals and Branch at bedtime. esomeprazol 2022-0 Yes [id number] 40mg Take 1 Univers e (NEXIUM) 5-12 capsule by ity of 40 mg 00:00: mouth [place] capsule 00 daily with Medica l breakfast. Branch maalox:diph 2022-0 Yes [id number] 15mL Take 15 mL [facility] enhydrAMINE 5-12 by mouth ity of :lidocaine 00:00: as needed [place] 2 % viscous 00 for Oral Medi shanice 1:1:1 mucositis Branch (EPIGASTRI C PAIN). proMETHazin 2022-0 Yes [id number] 25mg Take 1 Univers e 25 mg 5-12 tablet by ity of tablet 00:00: mouth [place] 00 every 6 Medical (six) Branch hours as needed for Nausea and Vomiting (N/V). sucralfate 2022-0 Yes [id number] 1g Take 1 U nivers 1 gram 5-12 tablet by ity of tablet 00:00: mouth [place] 00 before Medical meals and Branch at bedtime. esomeprazol 3-0 Yes [id number] 40mg Take 1 Univers e (NEXIUM) 5-12 capsule by ity of 40 mg 00:00: mouth [place] capsule 00 daily with Medica l breakfast. Branch maalox:diph 2022-0 Yes [id number] 15mL Take 15 mL [facility] enhydrAMINE 5-12 by mouth ity of :lidocaine 00:00: as needed [place] 2 % viscous 00 for Oral Medi shanice 1:1:1 mucositis Branch (EPIGASTRI C PAIN). proMETHazin 2023-0 Yes [id number] 25mg Take 1 Univers e 25 mg 5-12 tablet by ity of tablet 00:00: mouth [place] 00 every 6 Medical (six) Branch hours as needed for Nausea and Vomiting (N/V). sucralfate 3-0 Yes [id number] 1g Take 1 U nivers 1 gram 5-12 tablet by ity of tablet 00:00: mouth [place] 00 before Medical meals and Branch at bedtime. esomeprazol 3-0 Yes [id number] 40mg Take 1 Univers e (NEXIUM) 5-12 capsule by ity of 40 mg 00:00: mouth [place] capsule 00 daily with Medica l breakfast. Branch maalox:diph 3-0 Yes [id number] 15mL Take 15 mL [facility] enhydrAMINE 5-12 by mouth ity of :lidocaine 00:00: as needed [place] 2 % viscous 00 for Oral Medi shanice 1:1:1 mucositis Branch (EPIGASTRI C PAIN). proMETHazin 2022-0 Yes [id number] 25mg Take 1 Univers e 25 mg 5-12 tablet by ity of tablet 00:00: mouth [place] 00 every 6 Medical (six) Branch hours as needed for Nausea and Vomiting (N/V). sucralfate 2022-0 Yes [id number] 1g Take 1 U nivers 1 gram 5-12 tablet by ity of tablet 00:00: mouth [place] 00 before Medical meals and Branch at bedtime. esomeprazol 3-0 Yes [id number] 40mg Take 1 Univers e (NEXIUM) 5-12 capsule by ity of 40 mg 00:00: mouth [place] capsule 00 daily with Medica l breakfast. Branch maalox:diph 3-0 Yes [id number] 15mL Take 15 mL [facility] enhydrAMINE 5-12 by mouth ity of :lidocaine 00:00: as needed [place] 2 % viscous 00 for Oral Medi shanice 1:1:1 mucositis Branch (EPIGASTRI C PAIN). proMETHazin 3-0 Yes [id number] 25mg Take 1 Univers e 25 mg 5-12 tablet by ity of tablet 00:00: mouth [place] 00 every 6 Medical (six) Branch hours as needed for Nausea and Vomiting (N/V). sucralfate 2023-0 Yes [id number] 1g Take 1 U nivers 1 gram 5-12 tablet by ity of tablet 00:00: mouth [place] 00 before Medical meals and Branch at bedtime. esomeprazol 3-0 Yes [id number] 40mg Take 1 Univers e (NEXIUM) 5-12 capsule by ity of 40 mg 00:00: mouth [place] capsule 00 daily with Medica l breakfast. Branch maalox:diph 2022-0 Yes [id number] 15mL Take 15 mL [facility] enhydrAMINE 5-12 by mouth ity of :lidocaine 00:00: as needed [place] 2 % viscous 00 for Oral Medi shanice 1:1:1 mucositis Branch (EPIGASTRI C PAIN). proMETHazin 2022-0 Yes [id number] 25mg Take 1 Univers e 25 mg 5-12 tablet by ity of tablet 00:00: mouth [place] 00 every 6 Medical (six) Branch hours as needed for Nausea and Vomiting (N/V). sucralfate 2022-0 Yes [id number] 1g Take 1 U nivers 1 gram 5-12 tablet by ity of tablet 00:00: mouth [place] 00 before Medical meals and Branch at bedtime. esomeprazol 2022-0 Yes [id number] 40mg Take 1 Univers e (NEXIUM) 5-12 capsule by ity of 40 mg 00:00: mouth [place] capsule 00 daily with Medica l breakfast. Branch maalox:diph 2022-0 Yes [id number] 15mL Take 15 mL [facility] enhydrAMINE 5-12 by mouth ity of :lidocaine 00:00: as needed [place] 2 % viscous 00 for Oral Medi shanice 1:1:1 mucositis Branch (EPIGASTRI C PAIN). proMETHazin 3-0 Yes [id number] 25mg Take 1 Univers e 25 mg 5-12 tablet by ity of tablet 00:00: mouth [place] 00 every 6 Medical (six) Branch hours as needed for Nausea and Vomiting (N/V). sucralfate 3-0 Yes [id number] 1g Take 1 U nivers 1 gram 5-12 tablet by ity of tablet 00:00: mouth [place] 00 before Medical meals and Branch at bedtime. esomeprazol 3-0 Yes [id number] 40mg Take 1 [facility] e (NEXIUM) 5-12 capsule by ity of 40 mg 00:00: mouth [place] capsule 00 daily with Medica l breakfast. Branch maalox:diph 3-0 Yes [id number] 15mL Take 15 mL [facility] enhydrAMINE 5-12 by mouth ity of :lidocaine 00:00: as needed [place] 2 % viscous 00 for Oral Medi shanice 1:1:1 mucositis Branch (EPIGASTRI C PAIN). proMETHazin 3-0 Yes [id number] 25mg Take 1 [facility] e 25 mg 5-12 tablet by ity of tablet 00:00: mouth [place] 00 every 6 Medical (six) Branch hours as needed for Nausea and Vomiting (N/V). sucralfate 3-0 Yes [id number] 1g Take 1 U nivers 1 gram 5-12 tablet by ity of tablet 00:00: mouth [place] 00 before Medical meals and Branch at bedtime. esomeprazol 3-0 Yes [id number] 40mg Take 1 [facility] e (NEXIUM) 5-12 capsule by ity of 40 mg 00:00: mouth [place] capsule 00 daily with Medica l breakfast. Branch maalox:diph 2022-0 Yes [id number] 15mL Take 15 mL [facility] enhydrAMINE 5-12 by mouth ity of :lidocaine 00:00: as needed [place] 2 % viscous 00 for Oral Medi shanice 1:1:1 mucositis Branch (EPIGASTRI C PAIN). proMETHazin 2022-0 Yes [id number] 25mg Take 1 [facility] e 25 mg 5-12 tablet by ity of tablet 00:00: mouth [place] 00 every 6 Medical (six) Branch hours as needed for Nausea and Vomiting (N/V). sucralfate 3-0 Yes [id number] 1g Take 1 U nivers 1 gram 5-12 tablet by ity of tablet 00:00: mouth [place] 00 before Medical meals and Branch at bedtime. esomeprazol 2023-0 Yes [id number] 40mg Take 1 [facility] e (NEXIUM) 5-12 capsule by ity of 40 mg 00:00: mouth [place] capsule 00 daily with Medica l breakfast. Branch maalox:diph 3-0 Yes [id number] 15mL Take 15 mL [facility] enhydrAMINE 5-12 by mouth ity of :lidocaine 00:00: as needed [place] 2 % viscous 00 for Oral Medi shanice 1:1:1 mucositis Branch (EPIGASTRI C PAIN). proMETHazin 3-0 Yes [id number] 25mg Take 1 [facility] e 25 mg 5-12 tablet by ity of tablet 00:00: mouth [place] 00 every 6 Medical (six) Branch hours as needed for Nausea and Vomiting (N/V). sucralfate 3-0 Yes [id number] 1g Take 1 U nivers 1 gram 5-12 tablet by ity of tablet 00:00: mouth [place] 00 before Medical meals and Branch at bedtime. esomeprazol 3-0 Yes [id number] 40mg Take 1 [facility] e (NEXIUM) 5-12 capsule by ity of 40 mg 00:00: mouth [place] capsule 00 daily with Medica l breakfast. Branch maalox:diph 2022-0 Yes [id number] 15mL Take 15 mL [facility] enhydrAMINE 5-12 by mouth ity of :lidocaine 00:00: as needed [place] 2 % viscous 00 for Oral Medi shanice 1:1:1 mucositis Branch (EPIGASTRI C PAIN). proMETHazin 2022-0 Yes [id number] 25mg Take 1 [facility] e 25 mg 5-12 tablet by ity of tablet 00:00: mouth [place] 00 every 6 Medical (six) Branch hours as needed for Nausea and Vomiting (N/V). sucralfate 3-0 Yes [id number] 1g Take 1 U nivers 1 gram 5-12 tablet by ity of tablet 00:00: mouth [place] 00 before Medical meals and Branch at bedtime. esomeprazol 3-0 Yes [id number] 40mg Take 1 [facility] e (NEXIUM) 5-12 capsule by ity of 40 mg 00:00: mouth [place] capsule 00 daily with Medica l breakfast. Branch maalox:diph 3-0 Yes [id number] 15mL Take 15 mL [facility] enhydrAMINE 5-12 by mouth ity of :lidocaine 00:00: as needed [place] 2 % viscous 00 for Oral Medi shanice 1:1:1 mucositis Branch (EPIGASTRI C PAIN). proMETHazin 3-0 Yes [id number] 25mg Take 1 [facility] e 25 mg 5-12 tablet by ity of tablet 00:00: mouth [place] 00 every 6 Medical (six) Branch hours as needed for Nausea and Vomiting (N/V). sucralfate 2022-0 Yes [id number] 1g Take 1 U nivers 1 gram 5-12 tablet by ity of tablet 00:00: mouth [place] 00 before Medical meals and Branch at bedtime. esomeprazol 2022-0 Yes [id number] 40mg Take 1 [facility] e (NEXIUM) 5-12 capsule by ity of 40 mg 00:00: mouth [place] capsule 00 daily with Medica l breakfast. Branch ondansetron 2022- No [id number] 4mg Take 1 Univers (ZOFRAN) 4 -08 11- tablet by ity of mg tablet 00:00: 00:00 mouth [place] 00 :00 every 8 Medical (eight) Branch hours as needed for Nausea and Vomiting (N/V). proMETHazin 2022-0 2022- No [id number] 25mg Take 1 [facility] e 25 mg 5-12 05-12 tablet by ity of tablet 00:00: 00:00 mouth [place] 00 :00 every 6 Medical (six) Branch hours as needed for Nausea and Vomiting (N/V). sucralfate 2022-0 2022- No [id number] 1g Take 1 [facility] 1 gram 5-12 05-12 tablet by ity of tablet 00:00: 00:00 mouth [place] 00 :00 before Medical meals and Branch at bedtime. esomeprazol 2022-0 2022- No [id number] 40mg Take 1 Univers e (NEXIUM) 5-12 [...] 15 mL Routine iopamidol 2022-0 3- No [id number] 70mL 70 mL, Univers (ISOVUE 12-30 Intravenou ity o f 370-500 mL) 17:30: 17:25 s, ONCE, 1 [place] injection 00 :00 dose, On Medica l 70 mL [facility] 12/30/22 at 1230, Routine nitroglycer No [id number] .8mg 0.8 mg, Univers in 12-30 Sublingual ity of (NITROSTAT) 17:15: 17:15 , ONCE, 1 [place] sublingual 00 :00 dose, On Medic al tablet 0.8 [facility] Branch mg 12/30/22 at 1215, Routine metoprolol 2022- No [id number] 100mg 100 mg, Univers tartrate 12-30 Oral, ity of (LOPRESSOR) 16:15: 16:41 ONCE, 1 [place] tablet 100 00 :00 dose, On Medic al mg [facility] 12/30/22 at 1141, Routine valACYclovi Yes [id number] 1g Take 1 Univers r 1 gram 4-21 tablet by ity of tablet 00:00: mouth in [address] and 1 tablet at noon and 1 tablet in the evening. valACYclovi 0 Yes [id number] 1g Take 1 Univers r 1 gram 4-21 tablet by ity of tablet 00:00: mouth in [address] and 1 tablet at noon and 1 tablet in the evening. valACYclovi 0 Yes [id number] 1g Take 1 Univers r 1 gram 4-21 tablet by ity of tablet 00:00: mouth in [address] and 1 tablet at noon and 1 tablet in the evening. valACYclovi 0 Yes [id number] 1g Take 1 [facility] r 1 gram 4-21 tablet by ity of tablet 00:00: mouth in [address] and 1 tablet at noon and 1 tablet in the evening. valACYclovi 0 Yes [id number] 1g Take 1 Univers r 1 gram 4-21 tablet by ity of tablet 00:00: mouth in [address] and 1 tablet at noon and 1 tablet in the evening. valACYclovi 0 Yes [id number] 1g Take 1 Univers r 1 gram 4-21 tablet by ity of tablet 00:00: mouth in [place] 00 the Medical morning Branch and 1 tablet at noon and 1 tablet in the evening. valACYclovi 2022-0 Yes [id number] 1g Take 1 Univers r 1 gram 4-21 tablet by ity of tablet 00:00: mouth in [place] 00 the Medical morning Branch and 1 tablet at noon and 1 tablet in the evening. valACYclovi 2022-0 Yes [id number] 1g Take 1 Univers r 1 gram 4-21 tablet by ity of tablet 00:00: mouth in [place] 00 the Medical morning Branch and 1 tablet at noon and 1 tablet in the evening. valACYclovi 2022-0 Yes [id number] 1g Take 1 Univers r 1 gram 4-21 tablet by ity of tablet 00:00: mouth in [place] 00 the Medical morning Branch and 1 tablet at noon and 1 tablet in the evening. valACYclovi 2022-0 Yes [id number] 1g Take 1 Univers r 1 gram 4-21 tablet by ity of tablet 00:00: mouth in [place] 00 the Medical morning Branch and 1 tablet at noon and 1 tablet in the evening. valACYclovi 2022-0 Yes [id number] 1g Take 1 Univers r 1 gram 4-21 tablet by ity of tablet 00:00: mouth in [place] 00 the Medical morning Branch and 1 tablet at noon and 1 tablet in the evening. valACYclovi 2022-0 Yes [id number] 1g Take 1 Univers r 1 gram 4-21 tablet by ity of tablet 00:00: mouth in [place] 00 the Medical morning Branch and 1 tablet at noon and 1 tablet in the evening. valACYclovi 2022-0 Yes [id number] 1g Take 1 Univers r 1 gram 4-21 tablet by ity of tablet 00:00: mouth in [place] 00 the Medical morning Branch and 1 tablet at noon and 1 tablet in the evening. valACYclovi 2022-0 Yes [id number] 1g Take 1 Univers r 1 gram 4-21 tablet by ity of tablet 00:00: mouth in [place] 00 the Medical morning Branch and 1 tablet at noon and 1 tablet in the evening. valACYclovi 3-0 2022- No [id number] 1g Take 1 Univers r 1 gram 4-21 05-12 tablet by ity o f tablet 00:00: 00:00 mouth in [place] 00 :00 the Medical morning Branch and 1 tablet at noon and 1 tablet in the evening. valACYclovi 2022-0 2022- No [id number] 1g Take 1 Univers r 1 gram 4-21 -29 tablet by ity o f tablet 00:00: 04:59 mouth in [place] 00 :00 the [facility] and 1 tablet at noon and 1 tablet in the evening. Do all this for 7 days. valACYclovi 2022-0 2022- No [id number] 1g Take 1 Univers r 1 gram 4-21 -21 tablet by ity o f tablet 00:00: 00:00 mouth in [place] 00 :00 the [facility] and 1 tablet at noon and 1 tablet in the evening. Do all this for 7 days. levETIRAcet Yes TWICE Unive rs am 500 mg 4-18 DAILY. ity of tablet 09:12: [address] gabapentin Yes gabapentin U nivers 300 mg 4-18 300 mg ity of capsule 09:12: capsule [address] famotidine Yes famotidine U nivers 20 mg 4-18 20 mg ity of tablet 09:12: tablet [address] clonazePAM Yes clonazepam U nivers 0.5 mg 4-18 0.5 mg ity of tablet 09:12: tablet [place] [address] TAKE 1 Medical TABLET BY Branch MOUTH EVERY DAY AT BEDTIME NEEDED FOR SEVERE ANXIETY/PA STACEY ATTACK buPROPion Yes 300mg Take 1 Unive rs XL 300 mg 4-18 tablet by ity o f 24 hr 09:12: mouth. [address] buprenorphi Yes [place] Uni vers ne [...] mg 4-18 DAILY. ity of tablet 09:12: [address] gabapentin 2022-0 Yes gabapentin U nivers 300 mg 4-18 300 mg ity of capsule 09:12: capsule [address] famotidine 0 Yes famotidine U nivers 20 mg 4-18 20 mg ity of tablet 09:12: tablet [address] clonazePAM 2022-0 Yes clonazepam U nivers 0.5 mg 4-18 0.5 mg ity of tablet 09:12: tablet [place] 14 TAKE 1 Medical TABLET BY Branch MOUTH EVERY DAY AT BEDTIME NEEDED FOR SEVERE ANXIETY/PA STACEY ATTACK buPROPion 2022-0 Yes 300mg Take 1 Unive rs XL 300 mg 4-18 tablet by ity o f 24 hr 09:12: mouth. [facility] 14 [facility] buprenorphi 0 Yes [place] Uni vers ne [...] mg 4-18 DAILY. ity of tablet 09:12: [address] gabapentin 2022-0 Yes gabapentin U nivers 300 mg 4-18 300 mg ity of capsule 09:12: capsule [address] famotidine 2022-0 Yes famotidine U nivers 20 mg 4-18 20 mg ity of tablet 09:12: tablet [address] clonazePAM 2022-0 Yes clonazepam U nivers 0.5 mg 4-18 0.5 mg ity of tablet 09:12: tablet [place] 14 TAKE 1 Medical TABLET BY Branch MOUTH EVERY DAY AT BEDTIME NEEDED FOR SEVERE ANXIETY/PA STACEY ATTACK buPROPion Yes 300mg Take 1 Unive rs XL 300 mg 4-18 tablet by ity o f 24 hr 09:12: mouth. [place] tablet 14 [facility] buprenorphi Yes [place] Uni vers ne HCL [...] mg 4-18 DAILY. ity of tablet 09:12: [address] gabapentin Yes gabapentin U nivers 300 mg 4-18 300 mg ity of capsule 09:12: capsule [address] famotidine Yes famotidine U nivers 20 mg 4-18 20 mg ity of tablet 09:12: tablet [address] clonazePAM Yes clonazepam U nivers 0.5 mg 4-18 0.5 mg ity of tablet 09:12: tablet [place] [address] TAKE 1 Medical TABLET BY Branch MOUTH EVERY DAY AT BEDTIME NEEDED FOR SEVERE ANXIETY/PA STACEY ATTACK buPROPion Yes 300mg Take 1 Unive rs XL 300 mg 4-18 tablet by ity o f 24 hr 09:12: mouth. [place] tablet 14 [facility] buprenorphi Yes [place] Uni vers ne HCL [...] mg 4-18 DAILY. ity of tablet 09:12: [address] gabapentin Yes gabapentin U nivers 300 mg 4-18 300 mg ity of capsule 09:12: capsule [address] famotidine 2022-0 Yes famotidine U nivers 20 mg 4-18 20 mg ity of tablet 09:12: tablet [address] clonazePAM Yes clonazepam U nivers 0.5 mg 4-18 0.5 mg ity of tablet 09:12: tablet [place] [address] TAKE 1 Medical TABLET BY Branch MOUTH EVERY DAY AT BEDTIME NEEDED FOR SEVERE ANXIETY/PA STACEY ATTACK buPROPion Yes 300mg Take 1 Unive rs XL 300 mg 4-18 tablet by ity o f 24 hr 09:12: mouth. [address] buprenorphi Yes [place] Uni vers ne [...] mg 4-18 DAILY. ity of tablet 09:12: [address] gabapentin Yes gabapentin U nivers 300 mg 4-18 300 mg ity of capsule 09:12: capsule [address] famotidine 0 Yes famotidine U nivers 20 mg 4-18 20 mg ity of tablet 09:12: tablet [address] clonazePAM 2022-0 Yes clonazepam U nivers 0.5 mg 4-18 0.5 mg ity of tablet 09:12: tablet [place] 14 TAKE 1 Medical TABLET BY Branch MOUTH EVERY DAY AT BEDTIME NEEDED FOR SEVERE ANXIETY/PA STACEY ATTACK buPROPion 0 Yes 300mg Take 1 Unive rs XL 300 mg 4-18 tablet by ity o f 24 hr 09:12: mouth. [place] tablet 14 [facility] buprenorphi Yes [place] Uni vers ne HCL [...] mg 4-18 DAILY. ity of tablet 09:12: [address] gabapentin Yes gabapentin U nivers 300 mg 4-18 300 mg ity of capsule 09:12: capsule [address] famotidine 0 Yes famotidine U nivers 20 mg 4-18 20 mg ity of tablet 09:12: tablet [address] clonazePAM 2022-0 Yes clonazepam U nivers 0.5 mg 4-18 0.5 mg ity of tablet 09:12: tablet [place] [address] TAKE 1 Medical TABLET BY Branch MOUTH EVERY DAY AT BEDTIME NEEDED FOR SEVERE ANXIETY/PA STACEY ATTACK buPROPion 2022-0 Yes 300mg Take 1 Unive rs XL 300 mg 4-18 tablet by ity o f 24 hr 09:12: mouth. [place] tablet [address] [place] [address] buprenorphi Yes [place] Uni vers ne HCL [...] mg 4-18 DAILY. ity of tablet 09:12: [address] gabapentin Yes gabapentin U nivers 300 mg 4-18 300 mg ity of capsule 09:12: capsule [address] famotidine Yes famotidine U nivers 20 mg 4-18 20 mg ity of tablet 09:12: tablet [address] clonazePAM Yes clonazepam U nivers 0.5 mg 4-18 0.5 mg ity of tablet 09:12: tablet [place] [address] TAKE 1 Medical TABLET BY Branch MOUTH EVERY DAY AT BEDTIME NEEDED FOR SEVERE ANXIETY/PA STACEY ATTACK buPROPion Yes 300mg Take 1 Unive rs XL 300 mg 4-18 tablet by ity o f 24 hr 09:12: mouth. [place] tablet 14 [facility] buprenorphi Yes [place] Uni vers ne HCL [...] mg 4-18 DAILY. ity of tablet 09:12: [address] gabapentin 2022-0 Yes gabapentin U nivers 300 mg 4-18 300 mg ity of capsule 09:12: capsule [address] famotidine 2022-0 Yes famotidine U nivers 20 mg 4-18 20 mg ity of tablet 09:12: tablet [address] clonazePAM 2022-0 Yes clonazepam U nivers 0.5 mg 4-18 0.5 mg ity of tablet 09:12: tablet [place] [address] TAKE 1 Medical TABLET BY Branch MOUTH EVERY DAY AT BEDTIME NEEDED FOR SEVERE ANXIETY/PA STACEY ATTACK buPROPion 2022-0 Yes 300mg Take 1 Unive rs XL 300 mg 4-18 tablet by ity o f 24 hr 09:12: mouth. [address] buprenorphi Yes [place] Uni vers ne [...] mg 4-18 DAILY. ity of tablet 09:12: [address] gabapentin 0 Yes gabapentin U nivers 300 mg 4-18 300 mg ity of capsule 09:12: capsule [address] famotidine 2022-0 Yes famotidine U nivers 20 mg 4-18 20 mg ity of tablet 09:12: tablet [address] clonazePAM 2022-0 Yes clonazepam U nivers 0.5 mg 4-18 0.5 mg ity of tablet 09:12: tablet [place] 14 TAKE 1 Medical TABLET BY Branch MOUTH EVERY DAY AT BEDTIME NEEDED FOR SEVERE ANXIETY/PA STACEY ATTACK buPROPion 0 Yes 300mg Take 1 Unive rs XL 300 mg 4-18 tablet by ity o f 24 hr 09:12: mouth. [place] tablet 14 Medical [place] buprenorphi Yes [place] Uni vers ne HCL [...] mg 4-18 DAILY. ity of tablet 09:12: [address] gabapentin Yes gabapentin U nivers 300 mg 4-18 300 mg ity of capsule 09:12: capsule [address] famotidine 0 Yes famotidine U nivers 20 mg 4-18 20 mg ity of tablet 09:12: tablet [address] clonazePAM Yes clonazepam U nivers 0.5 mg 4-18 0.5 mg ity of tablet 09:12: tablet [place] [address] TAKE 1 Medical TABLET BY Branch MOUTH EVERY DAY AT BEDTIME NEEDED FOR SEVERE ANXIETY/PA STACEY ATTACK buPROPion 2022-0 Yes 300mg Take 1 Unive rs XL 300 mg 4-18 tablet by ity o f 24 hr 09:12: mouth. [place] tablet 14 [facility] buprenorphi Yes [place] Uni vers ne HCL [...] mg 4-18 DAILY. ity of tablet 09:12: [address] gabapentin Yes gabapentin U nivers 300 mg 4-18 300 mg ity of capsule 09:12: capsule [address] famotidine Yes famotidine U nivers 20 mg 4-18 20 mg ity of tablet 09:12: tablet [address] clonazePAM Yes clonazepam U nivers 0.5 mg 4-18 0.5 mg ity of tablet 09:12: tablet [place] [address] TAKE 1 Medical TABLET BY Branch MOUTH EVERY DAY AT BEDTIME NEEDED FOR SEVERE ANXIETY/PA STACEY ATTACK buPROPion Yes 300mg Take 1 Unive rs XL 300 mg 4-18 tablet by ity o f 24 hr 09:12: mouth. [address] buprenorphi Yes [place] Uni vers ne [...] mg 4-18 DAILY. ity of tablet 09:12: [address] gabapentin Yes gabapentin U nivers 300 mg 4-18 300 mg ity of capsule 09:12: capsule [address] famotidine 0 Yes famotidine U nivers 20 mg 4-18 20 mg ity of tablet 09:12: tablet [address] clonazePAM 0 Yes clonazepam U nivers 0.5 mg 4-18 0.5 mg ity of tablet 09:12: tablet [place] 14 TAKE 1 Medical TABLET BY Branch [...] mg 4-18 DAILY. ity of tablet 09:12: [address] gabapentin Yes gabapentin U nivers 300 mg 4-18 300 mg ity of capsule 09:12: capsule [address] famotidine 0 Yes famotidine U nivers 20 mg 4-18 20 mg ity of tablet 09:12: tablet [address] clonazePAM 0 Yes clonazepam U nivers 0.5 mg 4-18 0.5 mg ity of tablet 09:12: tablet [place] 14 TAKE 1 Medical TABLET BY Branch [...] mg 4-18 DAILY. ity of tablet 09:12: [address] gabapentin Yes gabapentin U nivers 300 mg 4-18 300 mg ity of capsule 09:12: capsule [address] famotidine Yes famotidine U nivers 20 mg 4-18 20 mg ity of tablet 09:12: tablet [address] clonazePAM Yes clonazepam U nivers 0.5 mg 4-18 0.5 mg ity of tablet 09:12: tablet [place] [address] TAKE 1 Medical TABLET BY Branch MOUTH [...] mg 4-18 DAILY. ity of tablet 09:12: [address] gabapentin Yes gabapentin U nivers 300 mg 4-18 300 mg ity of capsule 09:12: capsule [address] famotidine Yes famotidine U nivers 20 mg 4-18 20 mg ity of tablet 09:12: tablet [address] clonazePAM 2022-0 Yes clonazepam U nivers 0.5 mg 4-18 0.5 mg ity of tablet 09:12: tablet [place] 14 TAKE 1 Medical TABLET BY Branch [...] mg 4-18 DAILY. ity of tablet 09:12: [address] gabapentin Yes gabapentin U nivers 300 mg 4-18 300 mg ity of capsule 09:12: capsule [address] famotidine 0 Yes famotidine U nivers 20 mg 4-18 20 mg ity of tablet 09:12: tablet [address] clonazePAM 2022-0 Yes clonazepam U nivers 0.5 mg 4-18 0.5 mg ity of tablet 09:12: tablet [place] [address] TAKE 1 Medical TABLET BY Branch MOUTH [...] mg 4-18 DAILY. ity of tablet 09:12: [address] gabapentin Yes gabapentin U nivers 300 mg 4-18 300 mg ity of capsule 09:12: capsule [address] famotidine Yes famotidine U nivers 20 mg 4-18 20 mg ity of tablet 09:12: tablet [address] clonazePAM Yes clonazepam U nivers 0.5 mg 4-18 0.5 mg ity of tablet 09:12: tablet [place] [address] TAKE 1 Medical TABLET BY Branch MOUTH [...] mg 4-18 DAILY. ity of tablet 09:12: [address] gabapentin Yes gabapentin U nivers 300 mg 4-18 300 mg ity of capsule 09:12: capsule [address] famotidine Yes famotidine U nivers 20 mg 4-18 20 mg ity of tablet 09:12: tablet [address] clonazePAM Yes clonazepam U nivers 0.5 mg 4-18 0.5 mg ity of tablet 09:12: tablet [place] 14 TAKE 1 Medical TABLET BY Branch [...] mg 4-18 DAILY. ity of tablet 09:12: [address] gabapentin Yes gabapentin U nivers 300 mg 4-18 300 mg ity of capsule 09:12: capsule [address] famotidine Yes famotidine U nivers 20 mg 4-18 20 mg ity of tablet 09:12: tablet [address] clonazePAM Yes clonazepam U nivers 0.5 mg 4-18 0.5 mg ity of tablet 09:12: tablet [place] [address] TAKE 1 Medical TABLET BY Branch MOUTH [...] mg 4-18 DAILY. ity of tablet 09:12: [address] gabapentin 2022-0 Yes gabapentin U nivers 300 mg 4-18 300 mg ity of capsule 09:12: capsule [address] famotidine 2022-0 Yes famotidine U nivers 20 mg 4-18 20 mg ity of tablet 09:12: tablet [address] clonazePAM 2022-0 Yes clonazepam U nivers 0.5 mg 4-18 0.5 mg ity of tablet 09:12: tablet [place] 14 TAKE 1 Medical TABLET BY Branch [...] mg 4-18 DAILY. ity of tablet 09:12: [address] gabapentin 2022-0 Yes gabapentin U nivers 300 mg 4-18 300 mg ity of capsule 09:12: capsule [address] famotidine 2022-0 Yes famotidine U nivers 20 mg 4-18 20 mg ity of tablet 09:12: tablet [address] clonazePAM 2022-0 Yes clonazepam U nivers 0.5 mg 4-18 0.5 mg ity of tablet 09:12: tablet [place] 14 TAKE 1 Medical TABLET BY Branch [...] mg 4-18 DAILY. ity of tablet 09:12: [address] gabapentin Yes gabapentin U nivers 300 mg 4-18 300 mg ity of capsule 09:12: capsule [address] famotidine Yes famotidine U nivers 20 mg 4-18 20 mg ity of tablet 09:12: tablet [address] clonazePAM Yes clonazepam U nivers 0.5 mg 4-18 0.5 mg ity of tablet 09:12: tablet [place] [address] TAKE 1 Medical TABLET BY Branch MOUTH [...] mg 4-18 DAILY. ity of tablet 09:12: [address] gabapentin Yes gabapentin U nivers 300 mg 4-18 300 mg ity of capsule 09:12: capsule [address] famotidine 0 Yes famotidine U nivers 20 mg 4-18 20 mg ity of tablet 09:12: tablet [address] clonazePAM 0 Yes clonazepam U nivers 0.5 mg 4-18 0.5 mg ity of tablet 09:12: tablet [place] 14 TAKE 1 Medical TABLET BY Branch [...] mg 4-18 DAILY. ity of tablet 09:12: [address] gabapentin Yes gabapentin U nivers 300 mg 4-18 300 mg ity of capsule 09:12: capsule [address] famotidine 0 Yes famotidine U nivers 20 mg 4-18 20 mg ity of tablet 09:12: tablet [address] clonazePAM 0 Yes clonazepam U nivers 0.5 mg 4-18 0.5 mg ity of tablet 09:12: tablet [place] 14 TAKE 1 Medical TABLET BY Branch [...] 12/19/22 at 0530, Routine iopamidol 2022- No [id number] 99mL 99 mL, U nivers (ISOVUE 12-1915 [...] 800 mg ity of tablet 10:43: tablet [address] [place] [address] Branch adalimumab 2022-0 Yes 40mg inject 1 Uni vers (HUMIRA) 40 4-11 Syringe ity o f mg/0.8 mL 10:43: under the [place] injection 17 skin. Medical Branch ibuprofen Yes ibuprofen Uni vers 800 mg 4-11 800 mg ity of tablet 10:43: tablet [address] [place] [address] Branch adalimumab 2022-0 Yes 40mg inject 1 Uni vers (HUMIRA) 40 4-11 Syringe ity o f mg/0.8 mL 10:43: under the [place] injection 17 skin. Medical Branch ibuprofen Yes ibuprofen Uni vers 800 mg 4-11 800 mg ity of tablet 10:43: tablet [address] [place] [address] Branch adalimumab 0 Yes 40mg inject 1 Uni vers (HUMIRA) 40 4-11 Syringe ity o f mg/0.8 mL 10:43: under the [place] injection 17 skin. Medical Branch ibuprofen Yes ibuprofen Uni vers 800 mg 4-11 800 mg ity of tablet 10:43: tablet [address] [place] [address] Branch adalimumab 2022-0 Yes 40mg inject 1 Uni vers (HUMIRA) 40 4-11 Syringe ity o f mg/0.8 mL 10:43: under the [place] injection 17 skin. Medical Branch ibuprofen Yes ibuprofen Uni vers 800 mg 4-11 800 mg ity of tablet 10:43: tablet [address] [place] [address] Branch adalimumab 2022-0 Yes 40mg inject 1 Uni vers (HUMIRA) 40 4-11 Syringe ity o f mg/0.8 mL 10:43: under the [place] injection 17 skin. Medical Branch ibuprofen Yes ibuprofen Uni vers 800 mg 4-11 800 mg ity of tablet 10:43: tablet [address] Branch pregabalin 0 Yes 150mg Take [...] by ity of capsule 00:00: mouth in [place] the Medical morning Branch and 1 capsule in the evening. meloxicam 2023-0 Yes Univers 15 mg 3-30 ity of tablet 00:00: [place] 00 Medical Branch HYDROcodone 2023-0 Yes 1{tbl} Take 1 Un travis -acetaminop 3-30 tablet by ity of hen 5-325 00:00: mouth 4 [place] mg tablet 00 (four) Medical times [place] daily. pregabalin 2023-0 Yes 150mg Take 1 Univ ers 150 mg 3-30 capsule by ity of capsule 00:00: mouth in [place] the Medical morning Branch and 1 capsule in the evening. meloxicam 2023-0 Yes Univers 15 mg 3-30 ity of tablet 00:00: [place] 00 Medical Branch HYDROcodone 2023-0 Yes 1{tbl} Take 1 Un travis -acetaminop 3-30 tablet by ity of hen 5-325 00:00: mouth 4 [place] mg tablet 00 (four) Medical times Branch daily. pregabalin 2023-0 Yes 150mg Take 1 Univ ers 150 mg 3-30 capsule by ity of capsule 00:00: mouth in [place] the Medical morning Branch and 1 capsule in the evening. meloxicam 2023-0 Yes Univers 15 mg 3-30 ity of tablet 00:00: [place] 00 Medical Branch HYDROcodone 2023-0 Yes 1{tbl} Take 1 Un travis -acetaminop 3-30 tablet by ity of hen 5-325 00:00: mouth 4 [place] mg tablet 00 (four) Medical times Branch daily. pregabalin 2023-0 Yes 150mg Take 1 Univ ers 150 mg 3-30 capsule by ity of capsule 00:00: mouth in [place] the Medical morning Branch and 1 capsule in the evening. meloxicam 2023-0 Yes Univers 15 mg 3-30 ity of tablet 00:00: [place] [facility] Branch HYDROcodone 2023-0 Yes 1{tbl} Take 1 Un travis -acetaminop 3-30 tablet by ity of hen 5-325 00:00: mouth 4 [place] mg tablet ([facility]) Medical times [place] daily. pregabalin 2023-0 Yes 150mg Take 1 [facility] 150 mg 3-30 capsule by ity of capsule 00:00: mouth in [place] the [facility] morning Branch and 1 capsule in the evening. meloxicam 2023-0 Yes [facility] 15 mg 3-30 ity of tablet 00:00: [place] [facility] Branch HYDROcodone 2023-0 Yes 1{tbl} Take 1 Un travis -acetaminop 3-30 tablet by ity of hen 5-325 00:00: mouth 4 [place] mg tablet ([facility]) [facility] times [place] daily. pregabalin 2023-0 Yes 150mg Take 1 [facility] ers 150 mg 3-30 capsule by ity of capsule 00:00: mouth in [place] the [facility] morning Branch and 1 capsule in the evening. meloxicam 2023-0 Yes [facility] 15 mg 3-30 ity of tablet 00:00: [place] [facility] Branch HYDROcodone 2023-0 Yes 1{tbl} Take 1 Un travis -acetaminop 3-30 tablet by ity of hen 5-325 00:00: mouth 4 [place] mg tablet ([facility]) [facility] times [place] daily. pregabalin 2023-0 Yes 150mg Take 1 [facility] ers 150 mg 3-30 capsule by ity of capsule 00:00: mouth in [place] the [facility] morning Branch and 1 capsule in the evening. meloxicam 2023-0 Yes [facility] 15 mg 3-30 ity of tablet 00:00: [place] [facility] Branch HYDROcodone 2023-0 Yes 1{tbl} Take 1 Un travis -acetaminop 3-30 tablet by ity of hen 5-325 00:00: mouth 4 [place] mg tablet 00 ([facility]) Medical times [place] daily. pregabalin 2023-0 Yes 150mg Take 1 [facility] ers 150 mg 3-30 capsule by ity of capsule 00:00: mouth in [place] the Medical morning Branch and 1 capsule in the evening. meloxicam 2023-0 Yes [facility] 15 mg 3-30 ity of tablet 00:00: [place] [facility] Branch HYDROcodone 2023-0 Yes 1{tbl} Take 1 Un travis -acetaminop 3-30 tablet by ity of hen 5-325 00:00: mouth 4 [place] mg tablet ([facility]) Medical times [place] daily. pregabalin 2023-0 Yes 150mg Take 1 [facility] 150 mg 3-30 capsule by ity of capsule 00:00: mouth in [place] the [facility] morning Branch and 1 capsule in the evening. meloxicam 2023-0 Yes [facility] 15 mg 3-30 ity of tablet 00:00: [address] Branch HYDROcodone 2023-0 Yes 1{tbl} Take 1 Un travis -acetaminop 3-30 tablet by ity of hen 5-325 00:00: mouth 4 [place] mg tablet ([facility]) [facility] times [place] daily. pregabalin 2023-0 Yes 150mg Take 1 [facility] ers 150 mg 3-30 capsule by ity of capsule 00:00: mouth in [place] [address] the [facility] morning Branch and 1 capsule in the evening. meloxicam 2023-0 Yes [facility] 15 mg 3-30 ity of tablet 00:00: [address] Branch HYDROcodone 2023-0 Yes 1{tbl} Take 1 Un travis -acetaminop 3-30 tablet by ity of hen 5-325 00:00: mouth 4 [place] mg tablet ([facility]) [facility] times [place] daily. pregabalin 2023-0 Yes 150mg Take 1 [facility] 150 mg 3-30 capsule by ity of capsule 00:00: mouth in [place] the Medical morning Branch and 1 capsule in the evening. meloxicam 2023-0 Yes [facility] 15 mg 3-30 ity of tablet 00:00: [place] [facility] Branch HYDROcodone 2023-0 Yes 1{tbl} Take 1 Un travis -acetaminop 3-30 tablet by ity of hen 5-325 00:00: mouth 4 [place] mg tablet 00 ([facility]) Medical times [place] daily. pregabalin 2023-0 Yes 150mg Take 1 [facility] 150 mg 3-30 capsule by ity of capsule 00:00: mouth in [place] [address] the Medical morning Branch and 1 capsule in the evening. meloxicam 2023-0 Yes [facility] 15 mg 3-30 ity of tablet 00:00: [place] [facility] Branch HYDROcodone 2023-0 Yes 1{tbl} Take 1 Un travis -acetaminop 3-30 tablet by ity of hen 5-325 00:00: mouth 4 [place] mg tablet 00 ([facility]) Medical times [place] daily. pregabalin 2023-0 Yes 150mg Take 1 [facility] 150 mg 3-30 capsule by ity of capsule 00:00: mouth in [place] [address] the Medical morning Branch and 1 capsule in the evening. meloxicam 2023-0 Yes [facility] 15 mg 3-30 ity of tablet 00:00: [address] Branch HYDROcodone 2023-0 Yes 1{tbl} Take 1 Un travis -acetaminop 3-30 tablet by ity of hen 5-325 00:00: mouth 4 [place] mg tablet 00 ([facility]) [facility] times [place] daily. pregabalin 2023-0 Yes 150mg Take 1 [facility] ers 150 mg 3-30 capsule by ity of capsule 00:00: mouth in [place] [address] the [facility] morning Branch and 1 capsule in the evening. meloxicam 2023-0 Yes [facility] 15 mg 3-30 ity of tablet 00:00: [place] [facility] Branch HYDROcodone 2023-0 Yes 1{tbl} Take 1 Un travis -acetaminop 3-30 tablet by ity of hen 5-325 00:00: mouth 4 [place] mg tablet ([facility]) [facility] times [place] daily. pregabalin 2023-0 Yes 150mg Take 1 [facility] ers 150 mg 3-30 capsule by ity of capsule 00:00: mouth in [place] [address] the [facility] morning Branch and 1 capsule in the evening. meloxicam 2023-0 Yes [facility] 15 mg 3-30 ity of tablet 00:00: [address] Branch HYDROcodone 2023-0 Yes 1{tbl} Take 1 Un travis -acetaminop 3-30 tablet by ity of hen 5-325 00:00: mouth 4 [place] mg tablet 00 ([facility]) [facility] times [place] daily. pregabalin 2023-0 Yes 150mg Take 1 [facility] ers 150 mg 3-30 capsule by ity of capsule 00:00: mouth in [place] [address] the [facility] morning Branch and 1 capsule in the evening. meloxicam 2023-0 Yes [facility] 15 mg 3-30 ity of tablet 00:00: [place] 00 [facility] Branch HYDROcodone 2023-0 Yes 1{tbl} Take 1 Un travis -acetaminop 3-30 tablet by ity of hen 5-325 00:00: mouth 4 [place] mg tablet 00 (four) Medical times [place] daily. pregabalin 2023-0 Yes 150mg Take 1 [facility] 150 mg 3-30 capsule by ity of capsule 00:00: mouth in [place] 00 the Medical morning Branch and 1 capsule in the evening. meloxicam 2023-0 Yes [facility] 15 mg 3-30 ity of tablet 00:00: [place] 00 [facility] Branch HYDROcodone 2023-0 Yes 1{tbl} Take 1 Un travis -acetaminop 3-30 tablet by ity of hen 5-325 00:00: mouth 4 [place] mg tablet 00 ([facility]) Medical times [place] daily. pregabalin 2023-0 Yes 150mg Take 1 [facility] 150 mg 3-30 capsule by ity of capsule 00:00: mouth in [place] the [facility] morning Branch and 1 capsule in the evening. meloxicam 2023-0 Yes [facility] 15 mg 3-30 ity of tablet 00:00: [place] 00 [facility] Branch HYDROcodone 2023-0 Yes 1{tbl} Take 1 Un travis -acetaminop 3-30 tablet by ity of hen 5-325 00:00: mouth 4 [place] mg tablet 00 ([facility]) [facility] times [place] daily. pregabalin 2023-0 Yes 150mg Take 1 [facility] ers 150 mg 3-30 capsule by ity of capsule 00:00: mouth in [place] the Medical morning Branch and 1 capsule in the evening. meloxicam 2023-0 Yes [facility] 15 mg 3-30 ity of tablet 00:00: [place] 00 [facility] Branch HYDROcodone 2023-0 Yes 1{tbl} Take 1 Un travis -acetaminop 3-30 tablet by ity of hen 5-325 00:00: mouth 4 [place] mg tablet 00 (four) Medical times [place] daily. pregabalin 2023-0 Yes 150mg Take 1 [facility] 150 mg 3-30 capsule by ity of capsule 00:00: mouth in [place] [address] the Medical morning Branch and 1 capsule in the evening. meloxicam 2023-0 Yes [facility] 15 mg 3-30 ity of tablet 00:00: [place] [facility] Branch HYDROcodone 2023-0 Yes 1{tbl} Take 1 Un travis -acetaminop 3-30 tablet by ity of hen 5-325 00:00: mouth 4 [place] mg tablet ([facility]) [facility] times [place] daily. pregabalin 2023-0 Yes 150mg Take 1 [facility] 150 mg 3-30 capsule by ity of capsule 00:00: mouth in [place] the Medical morning Branch and 1 capsule in the evening. meloxicam 2023-0 Yes [facility] 15 mg 3-30 ity of tablet 00:00: [place] [facility] Branch HYDROcodone 2023-0 Yes 1{tbl} Take 1 Un travis -acetaminop 3-30 tablet by ity of hen 5-325 00:00: mouth 4 [place] mg tablet ([facility]) [facility] daily. pregabalin 2023-0 Yes 150mg Take 1 [facility] ers 150 mg 3-30 capsule by ity of capsule 00:00: mouth in [place] the [facility] morning Branch and 1 capsule in the evening. meloxicam 2023-0 Yes Univers 15 mg 3-30 ity of tablet 00:00: [place] [facility] Branch HYDROcodone 2023-0 Yes 1{tbl} Take 1 Un travis -acetaminop 3-30 tablet by ity of hen 5-325 00:00: mouth 4 [place] mg tablet ([facility]) [facility] daily. pregabalin 2023-0 Yes 150mg Take 1 [facility] ers 150 mg 3-30 capsule by ity of capsule 00:00: mouth in [place] the [facility] morning Branch and 1 capsule in the evening. meloxicam 2023-0 Yes [facility] 15 mg 3-30 ity of tablet 00:00: [place] [facility] Branch HYDROcodone 2023-0 Yes 1{tbl} Take 1 Un travis -acetaminop 3-30 tablet by ity of hen 5-325 00:00: mouth 4 [place] mg tablet ([facility]) [facility] times [place] daily. pregabalin 2023-0 Yes 150mg Take 1 [facility] 150 mg 3-30 capsule by ity of capsule 00:00: mouth in [place] [address] the Medical morning Branch and 1 capsule in the evening. meloxicam 2023-0 Yes [facility] 15 mg 3-30 ity of tablet 00:00: [address] Branch HYDROcodone 2023-0 Yes 1{tbl} Take 1 Un travis -acetaminop 3-30 tablet by ity of hen 5-325 00:00: mouth 4 [place] mg tablet 00 ([facility]) Medical times [place] daily. pregabalin 2023-0 Yes 150mg Take 1 [facility] 150 mg 3-30 capsule by ity of capsule 00:00: mouth in [place] the Medical morning Branch and 1 capsule in the evening. meloxicam 2023-0 Yes [facility] 15 mg 3-30 ity of tablet 00:00: [place] [facility] Branch HYDROcodone 2023-0 Yes 1{tbl} Take 1 Un travis -acetaminop 3-30 tablet by ity of hen 5-325 00:00: mouth 4 [place] mg tablet 00 ([facility]) Medical times [place] daily. pregabalin 2023-0 Yes 150mg Take 1 [facility] ers 150 mg 3-30 capsule by ity of capsule 00:00: mouth in [place] the Medical morning Branch and 1 capsule in the evening. meloxicam 2023-0 Yes [facility] 15 mg 3-30 ity of tablet 00:00: [place] [facility] Branch HYDROcodone 2023-0 Yes 1{tbl} Take 1 Un travis -acetaminop 3-30 tablet by ity of hen 5-325 00:00: mouth 4 [place] mg tablet ([facility]) Medical times [place] daily. pregabalin 2023-0 Yes 150mg Take 1 [facility] ers 150 mg 3-30 capsule by ity of capsule 00:00: mouth in [place] the Medical morning Branch and 1 capsule in the evening. meloxicam 2023-0 Yes [facility] 15 mg 3-30 ity of tablet 00:00: [place] [facility] Branch HYDROcodone 2023-0 Yes 1{tbl} Take 1 Un travis -acetaminop 3-30 tablet by ity of hen 5-325 00:00: mouth 4 [place] mg tablet 00 ([facility]) Medical times [place] daily. pregabalin 2023-0 Yes 150mg Take 1 [facility] 150 mg 3-30 capsule by ity of capsule 00:00: mouth in [place] the Medical morning Branch and 1 capsule in the evening. meloxicam 2023-0 Yes [facility] 15 mg 3-30 ity of tablet 00:00: [place] [facility] Branch HYDROcodone 2023-0 Yes 1{tbl} Take 1 Un trvais -acetaminop 3-30 tablet by ity of hen 5-325 00:00: mouth 4 [place] mg tablet 00 ([facility]) Medical times [place] daily. pregabalin 2023-0 Yes 150mg Take 1 [facility] 150 mg 3-30 capsule by ity of capsule 00:00: mouth in [place] the Medical morning Branch and 1 capsule in the evening. meloxicam 2023-0 Yes [facility] 15 mg 3-30 ity of tablet 00:00: [place] 00 [facility] Branch HYDROcodone 2023-0 Yes 1{tbl} Take 1 Un travis -acetaminop 3-30 tablet by ity of hen 5-325 00:00: mouth 4 [place] mg tablet 00 (four) Medical times [place] daily. pregabalin 2023-0 Yes 150mg Take 1 [facility] ers 150 mg 3-30 capsule by ity of capsule 00:00: mouth in [place] the Medical morning Branch and 1 capsule in the evening. meloxicam 2023-0 Yes [facility] 15 mg 3-30 ity of tablet 00:00: [place] [facility] Branch HYDROcodone 2023-0 Yes 1{tbl} Take 1 Un travis -acetaminop 3-30 tablet by ity of hen 5-325 00:00: mouth 4 [place] mg tablet 00 ([facility]) Medical times [place] daily. pregabalin 2023-0 Yes 150mg Take 1 [facility] ers 150 mg 3-30 capsule by ity of capsule 00:00: mouth in [place] the Medical morning Branch and 1 capsule in the evening. meloxicam 2023-0 Yes [facility] 15 mg 3-30 ity of tablet 00:00: [place] [facility] Branch HYDROcodone 2023-0 Yes 1{tbl} Take 1 Un travis -acetaminop 3-30 tablet by ity of hen 5-325 00:00: mouth 4 [place] mg tablet 00 (four) Medical times [place] daily. pregabalin 2023-0 Yes 150mg Take 1 [facility] ers 150 mg 3-30 capsule by ity of capsule 00:00: mouth in [place] the Medical morning Branch and 1 capsule in the evening. meloxicam 2023-0 Yes [facility] 15 mg 3-30 ity of tablet 00:00: [place] 00 [facility] Branch HYDROcodone 2023-0 Yes 1{tbl} Take 1 Un travis -acetaminop 3-30 tablet by ity of hen 5-325 00:00: mouth 4 [place] mg tablet 00 (four) Medical times [place] daily. pregabalin 2023-0 Yes 150mg Take 1 [facility] ers 150 mg 3-30 capsule by ity of capsule 00:00: mouth in [place] the Medical morning Branch and 1 capsule in the evening. meloxicam 2023-0 Yes Univers 15 mg 3-30 ity of tablet 00:00: [place] [address] Medical Branch HYDROcodone 2023-0 Yes 1{tbl} Take 1 Un travis -acetaminop 3-30 tablet by ity of hen 5-325 00:00: mouth 4 [place] mg tablet 00 (four) Medical times [place] daily. pregabalin 2023-0 Yes 150mg Take 1 [facility] ers 150 mg 3-30 capsule by ity of capsule 00:00: mouth in [place] [address] the [facility] morning Branch and 1 capsule in the evening. meloxicam 2023-0 Yes Univers 15 mg 3-30 ity of tablet 00:00: [address] Branch HYDROcodone 2023-0 Yes 1{tbl} Take 1 Un travis -acetaminop 3-30 tablet by ity of hen 5-325 00:00: mouth 4 [place] mg tablet 00 (four) Medical times [place] daily. pregabalin 2023-0 Yes 150mg Take 1 [facility] ers 150 mg 3-30 capsule by ity of capsule 00:00: mouth in [place] the [facility] morning Branch and 1 capsule in the evening. meloxicam 2023-0 Yes Univers 15 mg 3-30 ity of tablet 00:00: [address] Branch pregabalin 2023-0 Yes 150mg Take 1 [facility] ers 150 mg 3-30 capsule by ity of capsule 00:00: mouth in [place] [address] the [facility] morning Branch and 1 capsule in the evening. meloxicam 2023-0 Yes [facility] 15 mg 3-30 ity of tablet 00:00: [place] Medical Branch pregabalin 2023-0 Yes 150mg Take 1 [facility] ers 150 mg 3-30 capsule by ity of capsule 00:00: mouth in [place] [address] the [facility] morning Branch and 1 capsule in the evening. meloxicam 2023-0 Yes Univers 15 mg 3-30 ity of tablet 00:00: [place] [address] Medical Branch pregabalin 2023-0 Yes 150mg Take 1 [facility] ers 150 mg 3-30 capsule by ity of capsule 00:00: mouth in [place] [address] the Medical morning Branch and 1 capsule in the evening. meloxicam 2023-0 Yes [facility] 15 mg 3-30 ity of tablet 00:00: [place] Medical Branch pregabalin 2023-0 Yes 150mg Take 1 [facility] ers 150 mg 3-30 capsule by ity of capsule 00:00: mouth in [place] [address] the [facility] morning Branch and 1 capsule in the evening. meloxicam 2023-0 Yes Univers 15 mg 3-30 ity of tablet 00:00: [place] [address] Medical Branch pregabalin 2023-0 Yes 150mg Take 1 [facility] ers 150 mg 3-30 capsule by ity of capsule 00:00: mouth in [place] [address] the Medical morning Branch and 1 capsule in the evening. meloxicam 2023-0 Yes [facility] 15 mg 3-30 ity of tablet 00:00: [place] [address] Medical Branch pregabalin 2023-0 Yes 150mg Take 1 [facility] ers 150 mg 3-30 capsule by ity of capsule 00:00: mouth in [address] morning [place] and 1 capsule in the evening. meloxicam 2023-0 Yes [facility] 15 mg 3-30 ity of tablet 00:00: [place] [facility] Branch pregabalin 2023-0 Yes 150mg Take 1 [facility] ers 150 mg 3-30 capsule by ity of capsule 00:00: mouth in [address] morning [place] and 1 capsule in the evening. meloxicam 2023-0 Yes [facility] 15 mg 3-30 ity of tablet 00:00: [place] [address] Medical Branch pregabalin 2023-0 Yes 150mg Take 1 [facility] ers 150 mg 3-30 capsule by ity of capsule 00:00: mouth in [place] [address] the [facility] morning [place] and 1 capsule in the evening. meloxicam 2023-0 Yes Univers 15 mg 3-30 ity of tablet 00:00: [place] [address] Medical Branch pregabalin 2023-0 Yes 150mg Take 1 [facility] ers 150 mg 3-30 capsule by ity of capsule 00:00: mouth in [place] [address] the [facility] morning [place] and 1 capsule in the evening. meloxicam 2023-0 Yes [facility] 15 mg 3-30 ity of tablet 00:00: [place] [address] Medical Branch pregabalin 2023-0 Yes 150mg Take 1 [facility] ers 150 mg 3-30 capsule by ity of capsule 00:00: mouth in [address] morning [place] and 1 capsule in the evening. meloxicam 2023-0 Yes [facility] 15 mg 3-30 ity of tablet 00:00: [place] 00 [facility] Branch HYDROcodone 2023-0 Yes 1{tbl} Take 1 Un travis -acetaminop 3-30 tablet by ity of hen 5-325 00:00: mouth 4 [place] mg tablet 00 ([facility]) Medical times [place] daily. pregabalin 2023-0 Yes 150mg Take 1 [facility] ers 150 mg 3-30 capsule by ity of capsule 00:00: mouth in [place] 00 the Medical morning Branch and 1 capsule in the evening. meloxicam 2023-0 Yes [facility] 15 mg 3-30 ity of tablet 00:00: [place] 00 [facility] Branch HYDROcodone 2023-0 Yes 1{tbl} Take 1 Un travis -acetaminop 3-30 tablet by ity of hen 5-325 00:00: mouth 4 [place] mg tablet 00 ([facility]) [facility] times [place] daily. pregabalin 2023-0 Yes 150mg Take 1 [facility] ers 150 mg 3-30 capsule by ity of capsule 00:00: mouth in [place] the [facility] morning Branch and 1 capsule in the evening. meloxicam 2023-0 Yes [facility] 15 mg 3-30 ity of tablet 00:00: [place] 00 [facility] Branch HYDROcodone 2023-0 Yes 1{tbl} Take 1 Un travis -acetaminop 3-30 tablet by ity of hen 5-325 00:00: mouth 4 [place] mg tablet 00 ([facility]) [facility] times [place] daily. pregabalin 2023-0 Yes 150mg Take 1 [facility] ers 150 mg 3-30 capsule by ity of capsule 00:00: mouth in [place] the [facility] morning Branch and 1 capsule in the evening. meloxicam 2023-0 Yes [facility] 15 mg 3-30 ity of tablet 00:00: [place] 00 [facility] Branch HYDROcodone 2023-0 Yes 1{tbl} Take 1 Un travis -acetaminop 3-30 tablet by ity of hen 5-325 00:00: mouth 4 [place] mg tablet 00 ([facility]) Medical times [place] daily. pregabalin 2023-0 Yes 150mg Take 1 [facility] ers 150 mg 3-30 capsule by ity of capsule 00:00: mouth in [place] [address] the Medical morning Branch and 1 capsule in the evening. meloxicam 2023-0 Yes [facility] 15 mg 3-30 ity of tablet 00:00: [place] [address] Medical Branch HYDROcodone 3-0 Yes 1{tbl} Take 1 Un travis -acetaminop 3-30 tablet by ity of hen 5-325 00:00: mouth 4 [place] mg tablet 00 (four) Medical times Branch daily. pregabalin 3-0 Yes 150mg Take 1 [facility] ers 150 mg 3-30 capsule by ity of capsule 00:00: mouth in [place] [address] the Medical morning Branch and 1 capsule in the evening. meloxicam 2022-0 Yes [facility] 15 mg 3-30 ity of tablet 00:00: [place] [address] Medical Branch HYDROcodone 2022-0 Yes 1{tbl} Take 1 Un travis -acetaminop 3-30 tablet by ity of hen 5-325 00:00: mouth 4 [place] mg tablet 00 (four) Medical times Branch daily. HYDROcodone 2022-0 2023- No 1{tbl} Take 1 U nivers -acetaminop 3-30 10-05 tablet by it y of hen 5-325 00:00: 00:[place] ([facility]) Medical times [facility] daily. HYDROcodone 2022-0 3- No 1{tbl} Take 1 U nivers -acetaminop 3-30 10-05 tablet by it y of hen 5-325 00:00: 00:[place] ([facility]) Medical times Branch daily. cyclobenzap 2022-0 Yes TAKE 1 Univ ers rine 10 mg 3-15 TABLET BY ity of tablet 00:00: [facility] 00 THREE Medical TIMES A Branch DAY NEEDED FOR 30 DAYS amitriptyli 2022-0 Yes TAKE 1 Univ ers ne 50 mg 3-15 TABLET BY ity of tablet 00:00: MOUTH [place] 00 EVERY DAY Medical AT BEDTIME Branch FOR 30 DAYS cyclobenzap 2022-0 Yes TAKE 1 Univ ers rine 10 mg 3-15 TABLET BY ity of tablet 00:00: MOUTH [place] 00 THREE Medical TIMES A Branch DAY NEEDED FOR 30 DAYS amitriptyli 3-0 Yes TAKE 1 Univ ers ne 50 mg 3-15 TABLET BY ity of tablet 00:00: MOUTH [place] 00 EVERY DAY Medical AT BEDTIME Branch [...] TABLET BY ity of tablet 00:00: [facility] THREE Medical TIMES A Branch DAY NEEDED FOR 30 DAYS amitriptyli 2023-0 Yes TAKE 1 Univ ers ne 50 mg 3-15 TABLET BY ity of tablet 00:00: [facility] EVERY DAY Medical AT BEDTIME Branch FOR 30 DAYS cyclobenzap 2023-0 Yes TAKE 1 Univ ers rine 10 mg 3-15 TABLET BY ity of tablet 00:00: MOUTH THREE Medical TIMES A Branch DAY NEEDED FOR 30 DAYS amitriptyli 2023-0 Yes TAKE 1 [facility] ers ne 50 mg 3-15 TABLET BY ity of tablet 00:00: [facility] cyclobenzap 2023-0 Yes TAKE 1 [facility] ers rine 10 mg 3-15 TABLET BY ity of tablet 00:00: [facility] THREE Medical TIMES A Branch DAY [...] TABLET BY ity of tablet 00:00: [facility] EVERY DAY Medical AT BEDTIME Branch [...] TABLET BY ity of tablet 00:00: [facility] EVERY DAY Medical AT BEDTIME [place] FOR 30 DAYS cyclobenzap 3-0 Yes TAKE 1 Univ ers rine 10 mg 3-15 TABLET BY ity of tablet 00:00: MOUTH THREE Medical TIMES A Branch DAY NEEDED FOR 30 DAYS amitriptyli 2023-0 Yes TAKE 1 [facility] ers ne 50 mg 3-15 TABLET BY ity of tablet 00:00: MOUTH EVERY DAY [facility] cyclobenzap 3-0 Yes TAKE 1 [facility] ers rine 10 mg 3-15 TABLET BY ity of tablet 00:00: MOUTH THREE Medical TIMES A Branch DAY NEEDED FOR 30 DAYS amitriptyli 2023-0 Yes TAKE 1 [facility] ers ne 50 mg 3-15 TABLET BY ity of tablet 00:00: [facility] EVERY DAY Medical AT BEDTIME [place] FOR 30 DAYS cyclobenzap 2023-0 Yes TAKE [...] tablet 00:00: MOUTH EVERY DAY Medical [facility] cyclobenzap 3-0 Yes TAKE 1 [facility] ers rine 10 mg 3-15 TABLET BY ity of tablet 00:00: MOUTH THREE Medical TIMES A Branch DAY NEEDED FOR 30 DAYS amitriptyli 2023-0 Yes TAKE 1 [facility] ers ne 50 mg 3-15 TABLET BY ity of tablet 00:00: [facility] cyclobenzap 2022-0 Yes TAKE 1 Univ ers rine 10 mg 3-15 TABLET BY ity of tablet 00:00: MOUTH THREE Medical TIMES A Branch DAY NEEDED FOR 30 DAYS amitriptyli 3-0 Yes TAKE 1 [facility] ers ne 50 mg 3-15 TABLET BY ity of tablet 00:00: [facility] EVERY DAY Medical [facility] cyclobenzap 2022-0 Yes TAKE 1 [facility] ers rine 10 mg 3-15 TABLET BY ity of tablet 00:00: [facility] THREE Medical TIMES A Branch DAY NEEDED FOR 30 DAYS amitriptyli 3-0 Yes TAKE 1 Univ ers ne 50 mg 3-15 TABLET BY ity of tablet 00:00: [facility] EVERY DAY Medical AT [facility] FOR 30 DAYS cyclobenzap 2022-0 Yes TAKE 1 Univ ers rine 10 mg 3-15 TABLET BY ity of tablet 00:00: [facility] THREE Medical TIMES A Branch DAY NEEDED FOR 30 DAYS amitriptyli 2023-0 Yes TAKE 1 [facility] ers ne 50 mg 3-15 TABLET BY ity of tablet 00:00: [facility] EVERY DAY Medical [facility] cyclobenzap 3-0 Yes TAKE 1 [facility] ers rine 10 mg 3-15 TABLET BY ity of tablet 00:00: [facility] THREE Medical TIMES A Branch DAY NEEDED FOR 30 DAYS amitriptyli 2023-0 Yes TAKE 1 [facility] ers ne 50 mg 3-15 TABLET BY ity of tablet 00:00: [facility] EVERY DAY Medical AT BEDTIME Branch FOR 30 DAYS cyclobenzap 3-0 Yes TAKE 1 Univ ers rine 10 mg 3-15 TABLET BY ity of tablet 00:00: [facility] THREE Medical TIMES A Branch DAY [...] tablet 00:00: MOUTH [facility] cyclobenzap 3-0 Yes TAKE 1 [facility] 10 mg 3-15 TABLET BY ity of tablet 00:00: MOUTH THREE Medical TIMES A Branch DAY NEEDED FOR 30 DAYS amitriptyli 3-0 Yes TAKE 1 [facility] ne 50 mg 3-15 TABLET BY ity of tablet 00:00: [facility]TH [facility] cyclobenzap 3-0 Yes TAKE 1 [facility] 10 mg 3-15 TABLET BY ity of tablet 00:00: MOUTH THREE Medical TIMES A Branch DAY NEEDED FOR 30 DAYS amitriptyli 2023-0 Yes TAKE 1 [facility] 50 mg 3-15 TABLET BY ity of tablet 00:00: [facility] cyclobenzap 3-0 Yes TAKE 1 [facility] 10 mg 3-15 TABLET BY ity of tablet 00:00: MOUTH THREE Medical TIMES A Branch DAY NEEDED FOR 30 DAYS amitriptyli 2023-0 Yes TAKE 1 [facility] 50 mg 3-15 TABLET BY ity of tablet 00:00: MOUTH EVERY DAY Medical AT BEDTIME [place] FOR 30 DAYS cyclobenzap 3-0 Yes TAKE [...] TABLET BY ity of tablet 00:00: [facility] EVERY DAY Medical AT BEDTIME Branch FOR 30 DAYS cyclobenzap 3-0 Yes TAKE 1 [facility]ine 10 mg 3-15 TABLET BY ity of tablet 00:00: [facility] THREE Medical TIMES A Branch DAY NEEDED FOR 30 DAYS amitriptyli 2023-0 Yes TAKE 1 [facility] ne 50 mg 3-15 TABLET BY ity of tablet 00:00: [facility] cyclobenzap 3-0 Yes TAKE 1 [facility]ine 10 mg 3-15 TABLET BY ity of tablet 00:00: [facility] THREE Medical TIMES A Branch DAY NEEDED FOR 30 DAYS amitriptyli 3-0 Yes TAKE 1 [facility] ne 50 mg 3-15 TABLET BY ity of tablet 00:00: [facility] EVERY DAY Medical AT BEDTIME [place] FOR 30 DAYS cyclobenzap 3-0 Yes TAKE 1 [facility] 10 mg 3-15 TABLET BY ity of tablet 00:00: [facility] THREE Medical TIMES A Branch DAY NEEDED FOR 30 DAYS amitriptyli 2023-0 Yes TAKE 1 [facility] ne 50 mg 3-15 TABLET BY ity of tablet 00:00: [facility] cyclobenzap 3-0 Yes TAKE 1 [facility] 10 mg 3-15 TABLET BY ity of tablet 00:00: [facility] THREE Medical TIMES A Branch DAY NEEDED FOR 30 DAYS amitriptyli 2023-0 Yes TAKE 1 [facility] 50 mg 3-15 TABLET BY ity of tablet 00:00: [facility] EVERY DAY Medical AT BEDTIME [place] FOR 30 DAYS cyclobenzap 2023-0 Yes TAKE 1 [facility] 10 mg 3-15 TABLET BY ity of tablet 00:00: [facility] THREE Medical TIMES A Branch DAY NEEDED FOR 30 DAYS amitriptyli 2023-0 Yes TAKE 1 [facility] 50 mg 3-15 TABLET BY ity of tablet 00:00: [facility] EVERY DAY Medical AT BEDTIME Branch FOR 30 DAYS cyclobenzap 2023-0 Yes TAKE 1 [facility]ine 10 mg 3-15 TABLET BY ity of tablet 00:00: THREE Medical TIMES A Branch DAY NEEDED FOR 30 DAYS amitriptyli 2023-0 Yes TAKE 1 [facility] 50 mg 3-15 TABLET BY ity of tablet 00:00: [facility] EVERY DAY Medical AT BEDTIME Branch FOR 30 DAYS cyclobenzap 2023-0 Yes TAKE 1 [facility] 10 mg 3-15 TABLET BY ity of tablet 00:00: [facility] THREE Medical TIMES A Branch DAY NEEDED FOR 30 DAYS amitriptyli 2023-0 Yes TAKE 1 [facility] ne 50 mg 3-15 TABLET BY ity of tablet 00:00: [facility] EVERY DAY Medical AT BEDTIME Branch FOR 30 DAYS cyclobenzap 3-0 Yes TAKE 1 [facility] 10 mg 3-15 TABLET BY ity of tablet 00:00: [facility] THREE Medical TIMES A Branch DAY NEEDED FOR 30 DAYS amitriptyli 2023-0 Yes TAKE 1 [facility] ne 50 mg 3-15 TABLET BY ity of tablet 00:00: [facility] EVERY DAY Medical AT BEDTIME Branch FOR 30 DAYS cyclobenzap 3-0 Yes TAKE 1 [facility] 10 mg 3-15 TABLET BY ity of tablet 00:00: [facility] THREE Medical TIMES A Branch DAY NEEDED FOR 30 DAYS amitriptyli 2023-0 Yes TAKE 1 [facility] 50 mg 3-15 TABLET BY ity of tablet 00:00: [facility] EVERY DAY Medical AT BEDTIME Branch FOR 30 DAYS cyclobenzap 2023-0 Yes TAKE 1 [facility]ine 10 mg 3-15 TABLET BY ity of tablet 00:00: [facility] THREE Medical TIMES A Branch DAY NEEDED FOR 30 DAYS amitriptyli 2023-0 Yes TAKE 1 [facility] ne 50 mg 3-15 TABLET BY ity of tablet 00:00: [facility] EVERY DAY Medical AT BEDTIME Branch FOR 30 DAYS cyclobenzap 2023-0 Yes TAKE 1 [facility]ine 10 mg 3-15 TABLET BY ity of tablet 00:00: [facility] THREE Medical TIMES A Branch DAY NEEDED FOR 30 DAYS amitriptyli 2023-0 Yes TAKE 1 [facility] 50 mg 3-15 TABLET BY ity of tablet 00:00: [facility] EVERY DAY Medical AT BEDTIME Branch [...] TABLET BY ity of tablet 00:00: [facility] EVERY DAY Medical AT BEDTIME Branch FOR 30 DAYS cyclobenzap 2023-0 Yes TAKE 1 [facility]ine 10 mg 3-15 TABLET BY ity of tablet 00:00: [facility] THREE Medical TIMES A Branch DAY NEEDED FOR 30 DAYS amitriptyli 2023-0 Yes TAKE 1 [facility] 50 mg 3-15 TABLET BY ity of tablet 00:00: [facility] EVERY DAY Medical AT BEDTIME Branch FOR 30 DAYS cyclobenzap 2023-0 Yes TAKE 1 [facility]ine 10 mg 3-15 TABLET BY ity of tablet 00:00: MOUTH THREE Medical TIMES A Branch DAY NEEDED FOR 30 DAYS amitriptyli 2023-0 Yes TAKE 1 [facility] 50 mg 3-15 TABLET BY ity of tablet 00:00: [facility] EVERY DAY Medical AT BEDTIME Branch [...] TABLET BY ity of tablet 00:00: [facility] EVERY DAY Medical AT BEDTIME [place] FOR 30 DAYS cyclobenzap 3-0 Yes TAKE 1 [facility] 10 mg 3-15 TABLET BY ity of tablet 00:00: [facility] THREE Medical TIMES A Branch DAY NEEDED FOR 30 DAYS amitriptyli 2023-0 Yes TAKE 1 [facility] 50 mg 3-15 TABLET BY ity of tablet 00:00: [facility] cyclobenzap 3-0 Yes TAKE 1 [facility]ine 10 mg 3-15 TABLET BY ity of tablet 00:00: [facility] THREE Medical TIMES A Branch DAY NEEDED FOR 30 DAYS amitriptyli 2023-0 Yes TAKE 1 [facility] ne 50 mg 3-15 TABLET BY ity of tablet 00:00: [facility] EVERY DAY Medical AT BEDTIME Branch FOR 30 DAYS cyclobenzap 3-0 Yes TAKE 1 [facility]ine 10 mg 3-15 TABLET BY ity of tablet 00:00: [facility] THREE Medical TIMES A Branch DAY NEEDED FOR 30 DAYS amitriptyli 2023-0 Yes TAKE 1 [facility] 50 mg 3-15 TABLET BY ity of tablet 00:00: [facility] EVERY DAY Medical AT BEDTIME Branch FOR 30 DAYS cyclobenzap 3-0 Yes TAKE 1 [facility] 10 mg 3-15 TABLET BY ity of tablet 00:00: [facility] THREE Medical TIMES A Branch DAY NEEDED FOR 30 DAYS amitriptyli 2023-0 Yes TAKE 1 [facility] 50 mg 3-15 TABLET BY ity of tablet 00:00: MOUTH [place] 00 EVERY DAY Medical AT [facility] FOR 30 DAYS cyclobenzap 2022-0 Yes TAKE 1 [facility] rine 10 mg 3-15 TABLET BY ity of tablet 00:00: MOUTH [place] 00 THREE Medical TIMES A Branch DAY NEEDED FOR 30 DAYS amitriptyli 2022-0 Yes TAKE 1 [facility] ne 50 mg 3-15 TABLET BY ity of tablet 00:00: MOUTH [place] 00 EVERY DAY Medical AT [facility] FOR 30 DAYS cyclobenzap 2022-0 Yes TAKE 1 [facility] rine 10 mg 3-15 TABLET BY ity of tablet 00:00: MOUTH [place] 00 THREE Medical TIMES A Branch DAY NEEDED FOR 30 DAYS amitriptyli 2022-0 Yes TAKE 1 [facility] 50 mg 3-15 TABLET BY ity of tablet 00:00: MOUTH [place] 00 EVERY DAY Medical AT [facility] FOR 30 DAYS cyclobenzap 2022-0 Yes TAKE 1 [facility] rine 10 mg 3-15 TABLET BY ity of tablet 00:00: [facility] 00 THREE Medical TIMES A Branch DAY NEEDED FOR 30 DAYS amitriptyli 2022-0 Yes TAKE 1 [facility] ne 50 mg 3-15 TABLET BY ity of tablet 00:00: [facility] 00 EVERY DAY Medical AT [facility] FOR 30 DAYS NaCl 0.9% 2022- [...] Wed11/03/22 at 0900, STAT LORazepam 2023-0 Yes [id number] 1mg Take 1 [facility] (ATIVAN) 1 2-28 tablet by ity of mg tablet 00:00: mouth 2 [place] 00 (two) Medical times Branch daily as needed for Anxiety or Agitation. hydrOXYzine 2023-0 Yes [id number] 25mg Take 1 [facility] (VISTARIL) 2-28 capsule by ity of 25 mg 00:00: mouth 3 [place] capsule 00 (three) Medical times Branch daily as needed for Anxiety. LORazepam 2023-0 Yes [id number] 1mg Take 1 [facility] (ATIVAN) 1 2-28 tablet by ity of mg tablet 00:00: mouth 2 [place] 00 (two) Medical times Branch daily as needed for Anxiety or Agitation. hydrOXYzine 2023-0 Yes [id number] 25mg Take 1 [facility] (VISTARIL) 2-28 capsule by ity of 25 mg 00:00: mouth 3 [place] capsule 00 (three) Medical times Branch daily as needed for Anxiety. LORazepam 2023-0 Yes [id number] 1mg Take 1 [facility] (ATIVAN) 1 2-28 tablet by ity of mg tablet 00:00: mouth 2 [place] 00 (two) Medical times Branch daily as needed for Anxiety or Agitation. hydrOXYzine 2023-0 Yes [id number] 25mg Take 1 [facility] (VISTARIL) 2-28 capsule by ity of 25 mg 00:00: mouth 3 [place] capsule 00 (three) Medical times Branch daily as needed for Anxiety. LORazepam 2023-0 Yes [id number] 1mg Take 1 [facility] (ATIVAN) 1 2-28 tablet by ity of mg tablet 00:00: mouth 2 [place] 00 (two) Medical times Branch daily as needed for Anxiety or Agitation. hydrOXYzine 2023-0 Yes [id number] 25mg Take 1 [facility] (VISTARIL) 2-28 capsule by ity of 25 mg 00:00: mouth 3 [place] capsule 00 (three) Medical times Branch daily as needed for Anxiety. LORazepam 2023-0 Yes [id number] 1mg Take 1 [facility] (ATIVAN) 1 2-28 tablet by ity of mg tablet 00:00: mouth 2 [place] 00 (two) Medical times Branch daily as needed for Anxiety or Agitation. hydrOXYzine 2023-0 Yes [id number] 25mg Take 1 [facility] (VISTARIL) 2-28 capsule by ity of 25 mg 00:00: mouth 3 [place] capsule 00 (three) Medical times Branch daily as needed for Anxiety. LORazepam 2023-0 Yes [id number] 1mg Take 1 [facility] (ATIVAN) 1 2-28 tablet by ity of mg tablet 00:00: mouth 2 [place] 00 (two) Medical times Branch daily as needed for Anxiety or Agitation. hydrOXYzine 2023-0 Yes [id number] 25mg Take 1 [facility] (VISTARIL) 2-28 capsule by ity of 25 mg 00:00: mouth 3 [place] capsule 00 (three) Medical times Branch daily as needed for Anxiety. LORazepam 2023-0 Yes [id number] 1mg Take 1 [facility] (ATIVAN) 1 2-28 tablet by ity of mg tablet 00:00: mouth 2 [place] 00 (two) Medical times Branch daily as needed for Anxiety or Agitation. hydrOXYzine 2023-0 Yes [id number] 25mg Take 1 [facility] (VISTARIL) 2-28 capsule by ity of 25 mg 00:00: mouth 3 [place] capsule 00 (three) Medical times Branch daily as needed for Anxiety. LORazepam 2023-0 Yes [id number] 1mg Take 1 [facility] (ATIVAN) 1 2-28 tablet by ity of mg tablet 00:00: mouth 2 [place] 00 (two) Medical times Branch daily as needed for Anxiety or Agitation. hydrOXYzine 2023-0 Yes [id number] 25mg Take 1 [facility] (VISTARIL) 2-28 capsule by ity of 25 mg 00:00: mouth 3 [place] capsule 00 (three) Medical times Branch daily as needed for Anxiety. LORazepam 2023-0 Yes [id number] 1mg Take 1 [facility] (ATIVAN) 1 2-28 tablet by ity of mg tablet 00:00: mouth 2 [place] 00 (two) Medical times Branch daily as needed for Anxiety or Agitation. hydrOXYzine 2023-0 Yes [id number] 25mg Take 1 [facility] (VISTARIL) 2-28 capsule by ity of 25 mg 00:00: mouth 3 [place] capsule 00 (three) Medical times Branch daily as needed for Anxiety. LORazepam 2023-0 Yes [id number] 1mg Take 1 [facility] (ATIVAN) 1 2-28 tablet by ity of mg tablet 00:00: mouth 2 [place] 00 (two) Medical times Branch daily as needed for Anxiety or Agitation. hydrOXYzine 2023-0 Yes [id number] 25mg Take 1 [facility] (VISTARIL) 2-28 capsule by ity of 25 mg 00:00: mouth 3 [place] capsule 00 (three) Medical times Branch daily as needed for Anxiety. LORazepam 2023-0 Yes [id number] 1mg Take 1 [facility] (ATIVAN) 1 2-28 tablet by ity of mg tablet 00:00: mouth 2 [place] 00 (two) Medical times Branch daily as needed for Anxiety or Agitation. hydrOXYzine 2023-0 Yes [id number] 25mg Take 1 [facility] (VISTARIL) 2-28 capsule by ity of 25 mg 00:00: mouth 3 [place] capsule 00 (three) Medical times Branch daily as needed for Anxiety. LORazepam 2023-0 Yes [id number] 1mg Take 1 [facility] (ATIVAN) 1 2-28 tablet by ity of mg tablet 00:00: mouth 2 [place] 00 (two) Medical times Branch daily as needed for Anxiety or Agitation. hydrOXYzine 2023-0 Yes [id number] 25mg Take 1 [facility] (VISTARIL) 2-28 capsule by ity of 25 mg 00:00: mouth 3 [place] capsule 00 (three) Medical times Branch daily as needed for Anxiety. LORazepam 2023-0 Yes [id number] 1mg Take 1 [facility] (ATIVAN) 1 2-28 tablet by ity of mg tablet 00:00: mouth 2 00 (two) Medical times Branch daily as needed for Anxiety or Agitation. hydrOXYzine 2023-0 Yes [id number] 25mg Take 1 [facility] (VISTARIL) 2-28 capsule by ity of 25 mg 00:00: mouth 3 [place] capsule 00 (three) Medical times Branch daily as needed for Anxiety. LORazepam 2023-0 Yes [id number] 1mg Take 1 [facility] (ATIVAN) 1 2-28 tablet by ity of mg tablet 00:00: mouth 2 [place] 00 (two) Medical times Branch daily as needed for Anxiety or Agitation. hydrOXYzine 2023-0 Yes [id number] 25mg Take 1 [facility] (VISTARIL) 2-28 capsule by ity of 25 mg 00:00: mouth 3 [place] capsule 00 (three) Medical times Branch daily as needed for Anxiety. LORazepam 2023-0 Yes [id number] 1mg Take 1 [facility] (ATIVAN) 1 2-28 tablet by ity of mg tablet 00:00: mouth 2 [place] 00 (two) Medical times Branch daily as needed for Anxiety or Agitation. hydrOXYzine 2023-0 Yes [id number] 25mg Take 1 [facility] (VISTARIL) 2-28 capsule by ity of 25 mg 00:00: mouth 3 [place] capsule 00 (three) Medical times Branch daily as needed for Anxiety. LORazepam 2023-0 Yes [id number] 1mg Take 1 [facility] (ATIVAN) 1 2-28 tablet by ity of mg tablet 00:00: mouth 2 [place] 00 (two) Medical times Branch daily as needed for Anxiety or Agitation. hydrOXYzine 2023-0 Yes [id number] 25mg Take 1 [facility] (VISTARIL) 2-28 capsule by ity of 25 mg 00:00: mouth 3 [place] capsule 00 (three) Medical times Branch daily as needed for Anxiety. LORazepam 2023-0 Yes [id number] 1mg Take 1 [facility] (ATIVAN) 1 2-28 tablet by ity of mg tablet 00:00: mouth 2 [place] 00 (two) Medical times Branch daily as needed for Anxiety or Agitation. hydrOXYzine 2023-0 Yes [id number] 25mg Take 1 [facility] (VISTARIL) 2-28 capsule by ity of 25 mg 00:00: mouth 3 [place] capsule 00 (three) Medical times Branch daily as needed for Anxiety. LORazepam 2023-0 Yes [id number] 1mg Take 1 [facility] (ATIVAN) 1 2-28 tablet by ity of mg tablet 00:00: mouth 2 [place] 00 (two) Medical times Branch daily as needed for Anxiety or Agitation. hydrOXYzine 2023-0 Yes [id number] 25mg Take 1 [facility] (VISTARIL) 2-28 capsule by ity of 25 mg 00:00: mouth 3 [place] capsule 00 (three) Medical times Branch daily as needed for Anxiety. LORazepam 2023-0 Yes [id number] 1mg Take 1 [facility] (ATIVAN) 1 2-28 tablet by ity of mg tablet 00:00: mouth 2 (two) Medical times Branch daily as needed for Anxiety or Agitation. hydrOXYzine 2023-0 Yes [id number] 25mg Take 1 [facility] (VISTARIL) 2-28 capsule by ity of 25 mg 00:00: mouth 3 [place] capsule 00 (three) Medical times Branch daily as needed for Anxiety. LORazepam 2023-0 Yes [id number] 1mg Take 1 [facility] (ATIVAN) 1 2-28 tablet by ity of mg tablet 00:00: mouth 2 (two) Medical times Branch daily as needed for Anxiety or Agitation. hydrOXYzine 2023-0 Yes [id number] 25mg Take 1 [facility] (VISTARIL) 2-28 capsule by ity of 25 mg 00:00: mouth 3 [place] capsule 00 (three) Medical times Branch daily as needed for Anxiety. LORazepam 2023-0 Yes [id number] 1mg Take 1 [facility] (ATIVAN) 1 2-28 tablet by ity of mg tablet 00:00: mouth 2 (two) Medical times Branch daily as needed for Anxiety or Agitation. hydrOXYzine 2023-0 Yes [id number] 25mg Take 1 [facility] (VISTARIL) 2-28 capsule by ity of 25 mg 00:00: mouth 3 [place] capsule 00 (three) Medical times Branch daily as needed for Anxiety. LORazepam 2023-0 Yes [id number] 1mg Take 1 [facility] (ATIVAN) 1 2-28 tablet by ity of mg tablet 00:00: mouth 2 (two) Medical times Branch daily as needed for Anxiety or Agitation. hydrOXYzine 2023-0 Yes [id number] 25mg Take 1 [facility] (VISTARIL) 2-28 capsule by ity of 25 mg 00:00: mouth 3 [place] capsule 00 (three) Medical times Branch daily as needed for Anxiety. LORazepam 2023-0 Yes [id number] 1mg Take 1 [facility] (ATIVAN) 1 2-28 tablet by ity of mg tablet 00:00: mouth 2 00 (two) Medical times Branch daily as needed for Anxiety or Agitation. hydrOXYzine 2023-0 Yes [id number] 25mg Take 1 [facility] (VISTARIL) 2-28 capsule by ity of 25 mg 00:00: mouth 3 [place] capsule 00 (three) Medical times Branch daily as needed for Anxiety. LORazepam 2023-0 Yes [id number] 1mg Take 1 [facility] (ATIVAN) 1 2-28 tablet by ity of mg tablet 00:00: mouth 2 [place] (two) Medical times Branch daily as needed for Anxiety or Agitation. hydrOXYzine 2023-0 Yes [id number] 25mg Take 1 [facility] (VISTARIL) 2-28 capsule by ity of 25 mg 00:00: mouth 3 [place] capsule 00 (three) Medical times Branch daily as needed for Anxiety. LORazepam 2023-0 Yes [id number] 1mg Take 1 [facility] (ATIVAN) 1 2-28 tablet by ity of mg tablet 00:00: mouth 2 [place] (two) Medical times Branch daily as needed for Anxiety or Agitation. LORazepam 2023-0 Yes [id number] 1mg Take 1 [facility]ivers (ATIVAN) 1 2-28 tablet by ity of mg tablet 00:00: mouth 2 [place] (two) Medical times Branch daily as needed for Anxiety or Agitation. LORazepam 2023-0 Yes [id number] 1mg Take 1 [facility] (ATIVAN) 1 2-28 tablet by ity of mg tablet 00:00: mouth 2 [place] (two) Medical times Branch daily as needed for Anxiety or Agitation. LORazepam 2023-0 Yes [id number] 1mg Take 1 [facility] (ATIVAN) 1 2-28 tablet by ity of mg tablet 00:00: mouth 2 [place] (two) Medical times Branch daily as needed for Anxiety or Agitation. LORazepam 2023-0 Yes [id number] 1mg Take 1 [facility] (ATIVAN) 1 2-28 tablet by ity of mg tablet 00:00: mouth 2 [place] (two) Medical times Branch daily as needed for Anxiety or Agitation. LORazepam 2023-0 Yes [id number] 1mg Take 1 [facility] (ATIVAN) 1 2-28 tablet by ity of mg tablet 00:00: mouth 2 [place] (two) Medical times Branch daily as needed for Anxiety or Agitation. LORazepam 2023-0 Yes [id number] 1mg Take 1 [facility] (ATIVAN) 1 2-28 tablet by ity of mg tablet 00:00: mouth 2 [place] (two) Medical times Branch daily as needed for Anxiety or Agitation. LORazepam 2023-0 Yes [id number] 1mg Take 1 [facility] (ATIVAN) 1 2-28 tablet by ity of mg tablet 00:00: mouth (two) Medical times Branch daily as needed for Anxiety or Agitation. LORazepam 2023-0 Yes [id number] 1mg Take 1 [facility] (ATIVAN) 1 2-28 tablet by ity of mg tablet 00:00: mouth (two) Medical times Branch daily as needed for Anxiety or Agitation. LORazepam 2023-0 Yes [id number] 1mg Take 1 [facility] (ATIVAN) 1 2-28 tablet by ity of mg tablet 00:00: mouth (two) Medical times Branch daily as needed for Anxiety or Agitation. LORazepam 3-0 Yes [id number] 1mg Take 1 [facility] (ATIVAN) 1 2-28 tablet by ity of mg tablet 00:00: mouth (two) Medical times Branch daily as needed for Anxiety or Agitation. LORazepam 3-0 Yes [id number] 1mg Take 1 [facility] (ATIVAN) 1 2-28 tablet by ity of mg tablet 00:00: mouth (two) Medical times Branch daily as needed for Anxiety or Agitation. LORazepam 2023-0 Yes [id number] 1mg Take 1 [facility] (ATIVAN) 1 2-28 tablet by ity of mg tablet 00:00: mouth (two) Medical times Branch daily as needed for Anxiety or Agitation. LORazepam 3-0 Yes [id number] 1mg Take 1 [facility] (ATIVAN) 1 2-28 tablet by ity of mg tablet 00:00: mouth (two) Medical times Branch daily as needed for Anxiety or Agitation. LORazepam 2023-0 Yes [id number] 1mg Take 1 [facility] (ATIVAN) 1 2-28 tablet by ity of mg tablet 00:00: mouth (two) Medical times Branch daily as needed for Anxiety or Agitation. LORazepam 2023-0 Yes [id number] 1mg Take 1 [facility] (ATIVAN) 1 2-28 tablet by ity of mg tablet 00:00: mouth (two) Medical times Branch daily as needed for Anxiety or Agitation. LORazepam 2023-0 Yes [id number] 1mg Take 1 [facility] (ATIVAN) 1 2-28 tablet by ity of mg tablet 00:00: mouth 2 [place] (two) Medical times Branch daily as needed for Anxiety or Agitation. LORazepam 2023-0 Yes [id number] 1mg Take 1 [facility] (ATIVAN) 1 2-28 tablet by ity of mg tablet 00:00: mouth 2 [place] (two) Medical times Branch daily as needed for Anxiety or Agitation. LORazepam 2023-0 Yes [id number] 1mg Take 1 [facility] (ATIVAN) 1 2-28 tablet by ity of mg tablet 00:00: mouth 2 (two) Medical times Branch daily as needed for Anxiety or Agitation. LORazepam 2023-0 Yes [id number] 1mg Take 1 [facility] (ATIVAN) 1 2-28 tablet by ity of mg tablet 00:00: mouth 2 (two) Medical times Branch daily as needed for Anxiety or Agitation. LORazepam 2023-0 Yes [id number] 1mg Take 1 [facility] (ATIVAN) 1 2-28 tablet by ity of mg tablet 00:00: mouth 2 (two) Medical times Branch daily as needed for Anxiety or Agitation. LORazepam 2023-0 Yes [id number] 1mg Take 1 [facility] (ATIVAN) 1 2-28 tablet by ity of mg tablet 00:00: mouth 2 (two) Medical times Branch daily as needed for Anxiety or Agitation. LORazepam 2023-0 Yes [id number] 1mg Take 1 [facility] (ATIVAN) 1 2-28 tablet by ity of mg tablet 00:00: mouth 2 [place] (two) Medical times Branch daily as needed for Anxiety or Agitation. hydrOXYzine 2023-0 Yes [id number] 25mg Take 1 [facility] (VISTARIL) 2-28 capsule by ity of 25 mg 00:00: mouth 3 [place] capsule 00 (three) Medical times Branch daily as needed for Anxiety. LORazepam 2023-0 Yes [id number] 1mg Take 1 [facility] (ATIVAN) 1 2-28 tablet by ity of mg tablet 00:00: mouth 2 [place] 00 (two) Medical times Branch daily as needed for Anxiety or Agitation. hydrOXYzine 2023-0 Yes [id number] 25mg Take 1 [facility] (VISTARIL) 2-28 capsule by ity of 25 mg 00:00: mouth 3 [place] capsule 00 (three) Medical times Branch daily as needed for Anxiety. LORazepam 2023-0 Yes [id number] 1mg Take 1 [facility] (ATIVAN) 1 2-28 tablet by ity of mg tablet 00:00: mouth 2 [place] 00 (two) Medical times Branch daily as needed for Anxiety or Agitation. hydrOXYzine 2023-0 Yes [id number] 25mg Take 1 [facility] (VISTARIL) 2-28 capsule by ity of 25 mg 00:00: mouth 3 [place] capsule 00 (three) Medical times Branch daily as needed for Anxiety. LORazepam 2023-0 Yes [id number] 1mg Take 1 [facility] (ATIVAN) 1 2-28 tablet by ity of mg tablet 00:00: mouth 2 [place] 00 (two) Medical times Branch daily as needed for Anxiety or Agitation. hydrOXYzine 2023-0 Yes [id number] 25mg Take 1 [facility] (VISTARIL) 2-28 capsule by ity of 25 mg 00:00: mouth 3 [place] capsule 00 (three) Medical times Branch daily as needed for Anxiety. LORazepam 2023-0 Yes [id number] 1mg Take 1 [facility] (ATIVAN) 1 2-28 tablet by ity of mg tablet 00:00: mouth 2 [place] 00 (two) Medical times Branch daily as needed for Anxiety or Agitation. hydrOXYzine 2023-0 Yes [id number] 25mg Take 1 [facility] (VISTARIL) 2-28 capsule by ity of 25 mg 00:00: mouth 3 [place] capsule 00 (three) Medical times Branch daily as needed for Anxiety. LORazepam 2023-0 Yes [id number] 1mg Take 1 [facility] (ATIVAN) 1 2-28 tablet by ity of mg tablet 00:00: mouth 2 [place] 00 (two) Medical times Branch daily as needed for Anxiety or Agitation. hydrOXYzine 2023-0 Yes [id number] 25mg Take 1 [facility] (VISTARIL) 2-28 capsule by ity of 25 mg 00:00: mouth 3 [place] capsule 00 (three) Medical times Branch daily as needed for Anxiety. LORazepam 2023-0 Yes [id number] 1mg Take 1 [facility] (ATIVAN) 1 2-28 tablet by ity of mg tablet 00:00: mouth 2 [place] 00 (two) Medical times Branch daily as needed for Anxiety or Agitation. hydrOXYzine 2022-0 Yes [id number] 25mg Take 1 [facility] (VISTARIL) 2-28 capsule by ity of 25 mg 00:00: mouth 3 [place] capsule 00 (three) Medical times Branch daily as needed for Anxiety. LORazepam 2022-0 Yes [id number] 1mg Take 1 [facility] (ATIVAN) 1 2-28 tablet by ity of mg tablet 00:00: mouth 2 [place] 00 (two) Medical times Branch daily as needed for Anxiety or Agitation. hydrOXYzine 2022-0 Yes [id number] 25mg Take 1 [facility] (VISTARIL) 2-28 capsule by ity of 25 mg 00:00: mouth 3 [place] capsule 00 (three) Medical times Branch daily as needed for Anxiety. hydrOXYzine 0 2022- No [id number] 25mg Take 1 [facility] (VISTARIL) 2-28 06-27 capsule by it y of 25 mg 00:00: 00:00 mouth 3 [place] capsule 00 :00 (three) Medical times Branch daily as needed for Anxiety. hydrOXYzine 2022-0 2022- No [id number] 25mg Take 1 [facility] (VISTARIL) 2-28 06-27 capsule by it y of 25 mg 00:00: 00:00 mouth 3 [place] capsule 00 :00 (three) Medical times Branch daily as needed for Anxiety. iopamidol 2022- No [id number] 75mL 75 mL, [facility] (ISOVUE 10-13 Intravenou [...] BY ity of tablet 00:00: MOUTH IN [place] 00 THE Medical MORNING Branch AND IN THE EVENING FOR 5 DAYS famotidine 2022-0 Yes TAKE 1 [facility]ive rs 20 mg 1-25 TABLET BY ity of tablet 00:00: MOUTH IN [place] 00 THE Medical MORNING Branch AND IN THE EVENING FOR 5 DAYS famotidine 2022-0 Yes TAKE 1 [facility] 20 mg 1-25 TABLET BY ity of tablet 00:00: MOUTH IN [place] 00 THE Medical MORNING Branch AND IN THE EVENING FOR 5 DAYS famotidine 2022-0 Yes TAKE 1 [facility] 20 mg 1-25 TABLET BY ity of tablet 00:00: MOUTH IN [place] 00 THE Medical MORNING Branch AND IN THE EVENING FOR 5 DAYS famotidine 2022-0 Yes TAKE 1 [facility] 20 mg 1-25 TABLET BY ity of tablet 00:00: MOUTH IN [place] 00 THE Medical MORNING Branch AND IN THE EVENING FOR 5 DAYS famotidine 2022-0 Yes TAKE 1 [facility] 20 mg 1-25 TABLET BY ity of tablet 00:00: MOUTH IN [place] 00 THE Medical MORNING Branch AND IN THE EVENING FOR 5 DAYS famotidine 2022-0 Yes TAKE 1 [facility] 20 mg 1-25 TABLET BY ity of tablet 00:00: MOUTH IN [place] 00 THE Medical MORNING Branch AND IN THE EVENING FOR 5 DAYS famotidine 2022-0 Yes TAKE 1 [facility] 20 mg 1-25 TABLET BY ity of tablet 00:00: MOUTH IN [place] 00 THE Medical MORNING Branch AND IN THE EVENING FOR 5 DAYS famotidine 2022-0 Yes TAKE 1 [facility] 20 mg 1-25 TABLET BY ity of tablet 00:00: MOUTH IN [place] 00 THE Medical MORNING Branch AND IN THE EVENING FOR 5 DAYS famotidine 2022-0 Yes TAKE 1 [facility] 20 mg 1-25 TABLET BY ity of tablet 00:00: MOUTH IN [place] 00 THE Medical MORNING Branch AND IN THE EVENING FOR 5 DAYS famotidine 2022-0 Yes TAKE 1 [facility] 20 mg 1-25 TABLET BY ity of tablet 00:00: MOUTH IN [place] [address] THE Medical MORNING Branch AND IN THE EVENING FOR 5 DAYS famotidine 2022-0 Yes TAKE 1 Unive rs 20 mg 1-25 TABLET BY ity of tablet 00:00: MOUTH IN [place] 00 THE Medical MORNING Branch AND IN [...] at 1830, 1 mL predniSONE 2022- No [id number] 40mg Take 2 [facility] 20 mg 09-10 tablets by ity of tablet 00:00: 05:59 mouth in [place] 00 :00 the [facility] Branch for 5 days. famotidine 2022- No [id number] 20mg Take 1 [facility] (PEPCID) 20 09-09 01-10 tablet by it y of mg tablet 00:00: 05:59 mouth in [facility] as 00 :00 the [facility] Branch and 1 tablet in the evening. Do all this for 5 days. HYDROcodone 2021-09- No 1{tbl} 1 tablet, [facility] -acetaminop 2-14 12-13 Oral, ity of hen (NORCO) 00:00: 22:59 [place] 10-325 mg 00 :00 dose, On Medica l tablet 1 e Branch tablet 08/18/22 at 1800, Routine oseltamivir 2021-09- No [id number] 75mg Take 1 [facility] (TAMIFLU) 2-13 12-19 capsule by ity of 75 mg 00:00: 05:59 mouth in [place] capsule 00 :00 the [facility] Branch and 1 capsule in [...] ity of immediate 00:00: 00:00 mouth. [place] [facility] 00 :00 Medical tablet Branch naproxen 2-0 Yes naproxen Unive rs 500 mg 9-16 500 mg ity of tablet 00:00: tablet [place] [facility] naproxen 2021-0 Yes naproxen Unive rs 500 mg 9-16 500 mg ity of tablet 00:00: tablet [place] [facility] naproxen 2-0 Yes naproxen Unive rs 500 mg 9-16 500 mg ity of tablet 00:00: tablet [place] [facility] naproxen 2-0 Yes naproxen Unive rs 500 mg 9-16 500 mg ity of tablet 00:00: tablet [place] [facility] naproxen 2021-0 Yes naproxen Unive rs 500 mg 9-16 500 mg ity of tablet 00:00: tablet [place] [facility] naproxen 2021-0 Yes naproxen Unive rs 500 mg 9-16 500 mg ity of tablet 00:00: tablet [place] [facility] naproxen 2021-0 Yes naproxen Unive rs 500 mg 9-16 500 mg ity of tablet 00:00: tablet [place] [facility] naproxen 2-0 Yes naproxen Unive rs 500 mg 9-16 500 mg ity of tablet 00:00: tablet [place] [facility] naproxen 2-0 Yes naproxen Unive rs 500 mg 9-16 500 mg ity of tablet 00:00: tablet [place] [facility] naproxen 2-0 Yes naproxen Unive rs 500 mg 9-16 500 mg ity of tablet 00:00: tablet [place] [facility] naproxen 2-0 Yes naproxen Unive rs 500 mg 9-16 500 mg ity of tablet 00:00: tablet [place] [facility] naproxen 2-0 Yes naproxen Unive rs 500 mg 9-16 500 mg ity of tablet 00:00: tablet [place] [facility] naproxen 2-0 3- No naproxen Univ ers 500 mg 9-16 05-12 500 mg ity of tablet 00:00: 00:00 tablet [place] 00 :00 Medical Branch prazosin 2 2021-0 [...] 9-15 capsule by ity of 00:00: mouth. [place] [facility] prazosin 2 2021-0 Yes 2mg Take 1 Unive rs mg capsule 9-15 capsule by ity of 00:00: mouth. Medical Branch prazosin 2 2021-0 Yes 2mg Take 1 Unive [facility] mg capsule 9-15 capsule by ity of 00:00: mouth. Medical Branch prazosin 2 2021-0 Yes 2mg Take 1 Unive rs mg capsule 9-15 capsule by ity of 00:00: mouth. [place] [facility] prazosin 2 2021-0 Yes 2mg Take 1 Unive rs mg capsule 9-15 capsule by ity of 00:00: mouth. Medical Branch prazosin 2 2021-0 Yes 2mg Take 1 Unive rs mg capsule 9-15 capsule by ity of 00:00: mouth. [place] [facility] prazosin 2 2021-0 Yes 2mg Take 1 Unive rs mg capsule 9-15 capsule by ity of 00:00: mouth. [place] [facility] prazosin 2 2021-0 3- No 2mg Take 1 Univ ers mg capsule 9-15 05-12 capsule by it y of 00:00: 00:00 mouth. [place] 00 :00 Medical Branch naloxone 4 2021-0 [...] Methodi -acetaminop 5-17 05-[address] [facility] ([facility] DD) 13:50: 00:00 mouth [facility] 10-325 mg 15 :00 every 6 l per tablet (six) hours as needed .acute pain. prn HYDROcodone No 1{tbl} Q6H Take 1 Methodi -acetaminop 5-17 05-[address] [email or web address]) 13:50: 00:00 mouth [facility] 10-325 mg 15 :00 every 6 l per tablet (six) hours as needed .acute pain. prn HYDROcodone No 1{tbl} Q6H Take 1 [facility] -acetaminop 5-17 05-[address] [email or web address]) 13:50: 00:00 mouth [facility] 10-325 mg 15 :00 every 6 l per tablet (six) hours as needed .acute pain. prn HYDROcodone No 1{tbl} Q6H Take 1 [facility]i -acetaminop 5-17 05-[address] [facility] (Anyt[facility] DD) 13:50: 00:00 mouth [facility] 10-325 mg 15 :00 every 6 l per tablet (six) hours as needed .acute pain. prn HYDROcodone 2021- No 1{tbl} Q6H Take 1 [facility]i -acetaminop 5-17 05-[address] [facility] ([facility]yt[facility] DD) 13:50: 00:00 mouth [facility] 10-325 mg [...] hours as needed. cyclobenzap 2022-0 Yes 10mg Q.[id number] Take 10 mg Methodi rine 5-17 [id number] [address] mouth [address] (FLEXERIL) 13:09: 3D [...] hours as needed. cyclobenzap 2022-0 Yes 10mg Q.[id number] Take 10 mg Methodi rine 5-17 [id number] [facility] (FLEXERIL) 13:09: 3D [...] hours as needed. cyclobenzap 2022-0 Yes 10mg Q.[id number] Take 10 mg Methodi rine 5-17 [id number] [address] [facility] [address] [facility] (FLEXERIL) 13:09: 3D [...] hours as needed. cyclobenzap 2022-0 Yes 10mg Q.[id number] Take 10 mg Methodi rine 5-17 [id number] [facility] (FLEXERIL) 13:09: 3D (three) [facility] 10 mg 39 times a l tablet day as needed for muscle spasms. cyclobenzap 2022-0 Yes 10mg Q.[id number] Take 10 mg Methodi rine 5-17 [id number] [facility] (FLEXERIL) 13:09: 3D [...] hours as needed. cyclobenzap 2022-0 Yes 10mg Q.[id number] Take 10 mg Methodi rine 5-17 [id number] [facility] [address] (FLEXERIL) 13:09: 3D [...] hours as needed. cyclobenzap 2022-0 Yes 10mg Q.24310488 Take 10 mg Methodi rine 5-17 [id number] [facility] [address] [facility] (FLEXERIL) 13:09: 3D [...] hours as needed. cyclobenzap 2022-0 Yes 10mg Q.[id number] Take 10 mg Methodi rine 5-17 [id number] [facility] [address] (FLEXERIL) 13:09: 3D [...] hours as needed. cyclobenzap 2022-0 Yes 10mg Q.06013789 Take 10 mg Methodi rine 5-17 [id number] [address] [facility] [address] (FLEXERIL) 13:09: 3D [...] hours as needed. cyclobenzap 2022-0 Yes 10mg Q.[id number] Take 10 mg Methodi rine 5-17 [id number] [facility] [address] (FLEXERIL) 13:09: 3D [...] hours as needed. cyclobenzap 2022-0 Yes 10mg Q.83730113 Take 10 mg Methodi rine 5-17 [id number] [facility] [address] (FLEXERIL) 13:09: 3D [...] hours as needed. cyclobenzap 2022-0 Yes 10mg Q.[id number] Take 10 mg Methodi rine 5-17 [id number] [address] [facility] [address] (FLEXERIL) 13:09: 3D [...] hours as needed. cyclobenzap 2022-0 Yes 10mg Q.[id number] Take 10 mg Methodi rine 5-17 [id number] [facility] [address] (FLEXERIL) 13:09: 3D [...] hours as needed. cyclobenzap 2022-0 Yes 10mg Q.[id number] Take 10 mg Methodi rine 5-17 [id number] [address] [facility] [address] (FLEXERIL) 13:09: 3D [...] hours as needed. cyclobenzap 2022-0 Yes 10mg Q.[id number] Take 10 mg Methodi rine 5-17 [id number] [address] [facility] [address] (FLEXERIL) 13:09: 3D [...] hours as needed. cyclobenzap 2022-0 Yes 10mg Q.[id number] Take 10 mg Methodi rine 5-17 [id number] [address] [facility] [address] (FLEXERIL) 13:09: 3D [...] hours as needed. cyclobenzap 2022-0 Yes 10mg Q.[id number] Take 10 mg Methodi rine 5-17 [id number] [facility] [address] (FLEXERIL) 13:09: 3D (three) [facility] 10 mg 39 times a l tablet day as needed for muscle spasms. HYDROcodone 2021-0 2021- No [id number] 1{tbl} Q6H Take 1 Methodi -acetaminop 5-17 06-[address] [facility] ([facility]) 00:00: 04:59 mouth [facility] 10-325 mg 00 :00 every 6 l per tablet (six) hours as needed for severe pain for up to 30 days .chronic pain. prn Max Daily Amount: 4 tablets HYDROcodone 2021-0 2021- No [id number] 1{tbl} Q6H Take 1 Methodi -acetaminop 5-17 06-[address] [facility] ([employer] 00:00: 04:59 mouth [facility] 10-325 mg 00 :00 every 6 l per tablet (six) hours as needed for severe pain for up to 30 days .chronic pain. prn Max Daily Amount: 4 tablets HYDROcodone 2022-0 2022- No [id number] 1{tbl} Q6H Take 1 Methodi -acetaminop 5-17 06-[address] [facility] ([facility] DD) 00:00: 04:59 mouth [facility] 10-325 mg 00 :00 every 6 l per tablet (six) hours as needed for severe pain for up to 30 days .chronic pain. prn Max Daily Amount: 4 tablets HYDROcodone 2022-0 2- No [id number] 1{tbl} Q6H Take 1 Methodi -acetaminop 5-17 06-[address] [facility] (Anyt[facility] DD) 00:00: 04:59 mouth [facility] 10-325 mg 00 :00 every 6 l per tablet (six) hours as needed for severe pain for up to 30 days .chronic pain. prn Max Daily Amount: 4 tablets HYDROcodone 2-0 2021- No [id number] 1{tbl} Q6H Take 1 Methodi -acetaminop 5-17 06-[address] [facility] (Anyt[facility] DD) 00:00: 04:59 mouth [facility] 10-325 mg 00 :00 every 6 l per tablet (six) hours as needed for severe pain for up to 30 days .chronic pain. prn Max Daily Amount: 4 tablets HYDROcodone 2-0 2021- No [id number] 1{tbl} Q6H Take 1 Methodi -acetaminop 5-17 06-[address] [facility] (Anyt[facility] DD) 00:00: 04:59 mouth [facility] 10-325 mg 00 :00 every 6 l per tablet (six) hours as needed for severe pain for up to 30 days .chronic pain. prn Max Daily Amount: 4 tablets HYDROcodone 2022-0 2- No [id number] 1{tbl} Q6H Take 1 Methodi -acetaminop 5-17 06-[address] [facility] (Anytime DD) 00:00: 04:59 mouth [facility] 10-325 mg 00 :00 every 6 l per tablet (six) hours as needed for severe pain for up to 30 days .chronic pain. prn Max Daily Amount: 4 tablets diazePAM 2022-0 2- No 10mg Q6H Take 10 mg [...] up to 60 days. diazePAM 2020-09- No [id number] 10mg Q12H Take 1 [facility] (VALIUM) 10 10-15- tablet (10 s t MG tablet 00:00: 05:59 mg total) [facility] 00 :00 by mouth l every 12 (twelve) hours as needed for anxiety for up to 30 days. diazePAM 2020-09- No [id number] 10mg Q12H Take 1 [facility] (VALIUM) 10 10-15 tablet (10 s t MG tablet 00:00: 05:59 mg total) [facility] 00 :00 by mouth l every 12 (twelve) hours as needed for anxiety for up to 30 days. diazePAM 2020-09- No [id number] 10mg Q12H Take 1 [facility] (VALIUM) 10 10-15 tablet (10 s t MG tablet 00:00: 05:59 mg total) [facility] 00 :00 by mouth l every 12 (twelve) hours as needed for anxiety for up to 30 days. diazePAM 2020-09- No [id number] 10mg Q12H Take 1 [facility] (VALIUM) [...] Q12H Take 1 Method i (VALIUM) 10 10-1409 tablet (10 s t MG tablet 00:00: [...] as needed for anxiety. diazePAM 2020-09- No [id number] 10mg Q12H Take 1 [facility] (VALIUM) 10 09-09 12-05 tablet (10 s t MG tablet 00:00: 05:59 mg total) [facility] 00 :00 by mouth l every 12 (twelve) hours as needed for anxiety for up to 30 days. diazePAM 2020-09- No [id number] 10mg Q12H Take 1 [facility] (VALIUM) 10 09-09 12-05 tablet (10 s t MG tablet 00:00: 05:59 mg total) [facility] 00 :00 by mouth l every 12 (twelve) hours as needed for anxiety for up to 30 days. diazePAM 2020-09- No [id number] 10mg Q12H Take 1 [facility] (VALIUM) 10 09-09 12-05 tablet (10 s t MG tablet 00:00: 05:59 mg total) [facility] 00 :00 by mouth l every 12 (twelve) hours as needed for anxiety for up to 30 days. diazePAM 2020-09- No [id number] 10mg Q12H Take 1 [facility] (VALIUM) 10 09-09 12-05 tablet (10 s t MG tablet 00:00: 05:59 mg total) [facility] 00 :00 by mouth l every 12 (twelve) hours as needed for anxiety for up to 30 days. azithromyci 2020-09- No [id number] 250mg QD Take 1 Methodi n 0-08 11-[address] (Zithromax 00:00: 00:00 (250 mg [facility] Z-Ok) 250 00 :00 total) by l MG tablet mouth daily. Take 2 tablets the first day, then 1 tablet daily for 4 days. pantoprazol 2020-0 Yes [id number] 40mg Take 1 Univers e 4-18 tablet by ity of (PROTONIX) 00:00: mouth [place] 40 mg EC 00 daily. Medical tablet Branch dicyclomine 2020-0 Yes [id number] 20mg Take 1 [facility] 20 mg 4-18 tablet by ity of tablet 00:00: mouth [place] 00 every 6 Medical (six) Branch hours as needed for Abdominal pain. ondansetron 2020-0 Yes [id number] 4mg Take 1 Univers (ZOFRAN) 4 4-18 tablet by ity of mg tablet 00:00: mouth [place] 00 every 8 Medical (eight) Branch hours as needed for Nausea and Vomiting (N/V). pantoprazol 2020-0 Yes [id number] 40mg Take 1 Univers e 4-18 tablet by ity of (PROTONIX) 00:00: mouth [place] 40 mg EC 00 daily. Medical tablet Branch dicyclomine 2020-0 Yes [id number] 20mg Take 1 [facility] 20 mg 4-18 tablet by ity of tablet 00:00: mouth [place] 00 every 6 Medical (six) Branch hours as needed for Abdominal pain. ondansetron 2020-0 Yes [id number] 4mg Take 1 Univers (ZOFRAN) 4 4-18 tablet by ity of mg tablet 00:00: mouth [place] 00 every 8 Medical (eight) Branch hours as needed for Nausea and Vomiting (N/V). pantoprazol 2020-0 Yes [id number] 40mg Take 1 Univers e 4-18 tablet by ity of (PROTONIX) 00:00: mouth [place] 40 mg EC 00 daily. Medical tablet Branch dicyclomine 2020-0 Yes [id number] 20mg Take 1 [facility] 20 mg 4-18 tablet by ity of tablet 00:00: mouth [place] 00 every 6 Medical (six) Branch hours as needed for Abdominal pain. ondansetron 2020-0 Yes [id number] 4mg Take 1 [facility] (ZOFRAN) 4 4-18 tablet by ity of mg tablet 00:00: mouth [place] 00 every 8 Medical (eight) Branch hours as needed for Nausea and Vomiting (N/V). pantoprazol 2020-0 Yes [id number] 40mg Take 1 Univers e 4-18 tablet by ity of (PROTONIX) 00:00: mouth [place] 40 mg EC 00 daily. Medical tablet Branch dicyclomine 2020-0 Yes [id number] 20mg Take 1 [facility] 20 mg 4-18 tablet by ity of tablet 00:00: mouth [place] 00 every 6 Medical (six) Branch hours as needed for Abdominal pain. ondansetron 2020-0 Yes [id number] 4mg Take 1 [facility] (ZOFRAN) 4 4-18 tablet by ity of mg tablet 00:00: mouth [place] 00 every 8 Medical (eight) Branch hours as needed for Nausea and Vomiting (N/V). pantoprazol 2020-0 Yes [id number] 40mg Take 1 Univers e 4-18 tablet by ity of (PROTONIX) 00:00: mouth [place] 40 mg EC 00 daily. Medical tablet Branch dicyclomine 0 Yes [id number] 20mg Take 1 [facility] 20 mg 4-18 tablet by ity of tablet 00:00: mouth [place] 00 every 6 Medical (six) Branch hours as needed for Abdominal pain. ondansetron 0 Yes [id number] 4mg Take 1 [facility] (ZOFRAN) 4 4-18 tablet by ity of mg tablet 00:00: mouth [place] 00 every 8 Medical (eight) Branch hours as needed for Nausea and Vomiting (N/V). pantoprazol 2020-0 Yes [id number] 40mg Take 1 Univers e 4-18 tablet by ity of (PROTONIX) 00:00: mouth [place] 40 mg EC 00 daily. Medical tablet Branch dicyclomine 0 Yes [id number] 20mg Take 1 [facility] 20 mg 4-18 tablet by ity of tablet 00:00: mouth [place] 00 every 6 Medical (six) Branch hours as needed for Abdominal pain. ondansetron 2020-0 Yes [id number] 4mg Take 1 [facility] (ZOFRAN) 4 4-18 tablet by ity of mg tablet 00:00: mouth [place] 00 every 8 Medical (eight) Branch hours as needed for Nausea and Vomiting (N/V). pantoprazol 2020-0 Yes [id number] 40mg Take 1 Univers e 4-18 tablet by ity of (PROTONIX) 00:00: mouth [place] 40 mg EC 00 daily. Medical tablet Branch dicyclomine 2020-0 Yes [id number] 20mg Take 1 [facility] 20 mg 4-18 tablet by ity of tablet 00:00: mouth [place] 00 every 6 Medical (six) Branch hours as needed for Abdominal pain. ondansetron 2020-0 Yes [id number] 4mg Take 1 [facility] (ZOFRAN) 4 4-18 tablet by ity of mg tablet 00:00: mouth [place] 00 every 8 Medical (eight) Branch hours as needed for Nausea and Vomiting (N/V). pantoprazol 2020-0 Yes [id number] 40mg Take 1 Univers e 4-18 tablet by ity of (PROTONIX) 00:00: mouth [place] 40 mg EC 00 daily. Medical tablet Branch dicyclomine 0 Yes [id number] 20mg Take 1 [facility] 20 mg 4-18 tablet by ity of tablet 00:00: mouth [place] 00 every 6 Medical (six) Branch hours as needed for Abdominal pain. ondansetron 0 Yes [id number] 4mg Take 1 [facility] (ZOFRAN) 4 4-18 tablet by ity of mg tablet 00:00: mouth [place] 00 every 8 Medical (eight) Branch hours as needed for Nausea and Vomiting (N/V). pantoprazol 2020-0 Yes [id number] 40mg Take 1 Univers e 4-18 tablet by ity of (PROTONIX) 00:00: mouth [place] 40 mg EC 00 daily. Medical tablet Branch dicyclomine 2020-0 Yes [id number] 20mg Take 1 [facility] 20 mg 4-18 tablet by ity of tablet 00:00: mouth [place] 00 every 6 Medical (six) Branch hours as needed for Abdominal pain. ondansetron 2020-0 Yes [id number] 4mg Take 1 [facility] (ZOFRAN) 4 4-18 tablet by ity of mg tablet 00:00: mouth [place] 00 every 8 Medical (eight) Branch hours as needed for Nausea and Vomiting (N/V). pantoprazol 2020-0 Yes [id number] 40mg Take 1 Univers e 4-18 tablet by ity of (PROTONIX) 00:00: mouth [place] 40 mg EC 00 daily. Medical tablet Branch dicyclomine 2020-0 Yes [id number] 20mg Take 1 [facility] 20 mg 4-18 tablet by ity of tablet 00:00: mouth [place] 00 every 6 Medical (six) Branch hours as needed for Abdominal pain. ondansetron 2020-0 Yes [id number] 4mg Take 1 [facility] (ZOFRAN) 4 4-18 tablet by ity of mg tablet 00:00: mouth [place] 00 every 8 Medical (eight) Branch hours as needed for Nausea and Vomiting (N/V). pantoprazol 2020-0 Yes [id number] 40mg Take 1 Univers e 4-18 tablet by ity of (PROTONIX) 00:00: mouth [place] 40 mg EC 00 daily. Medical tablet Branch dicyclomine 2020-0 Yes [id number] 20mg Take 1 [facility] 20 mg 4-18 tablet by ity of tablet 00:00: mouth [place] 00 every 6 Medical (six) Branch hours as needed for Abdominal pain. ondansetron 2020-0 Yes [id number] 4mg Take 1 Univers (ZOFRAN) 4 4-18 tablet by ity of mg tablet 00:00: mouth [place] 00 every 8 Medical (eight) Branch hours as needed for Nausea and Vomiting (N/V). pantoprazol 2020-0 Yes [id number] 40mg Take 1 Univers e 4-18 tablet by ity of (PROTONIX) 00:00: mouth [place] 40 mg EC 00 daily. Medical tablet Branch dicyclomine 2020-0 Yes [id number] 20mg Take 1 [facility] 20 mg 4-18 tablet by ity of tablet 00:00: mouth [place] 00 every 6 Medical (six) Branch hours as needed for Abdominal pain. ondansetron 2020-0 Yes [id number] 4mg Take 1 [facility] (ZOFRAN) 4 4-18 tablet by ity of mg tablet 00:00: mouth [place] 00 every 8 Medical (eight) Branch hours as needed for Nausea and Vomiting (N/V). pantoprazol 2020-0 Yes [id number] 40mg Take 1 Univers e 4-18 tablet by ity of (PROTONIX) 00:00: mouth [place] 40 mg EC 00 daily. Medical tablet Branch dicyclomine 2020-0 Yes [id number] 20mg Take 1 [facility] 20 mg 4-18 tablet by ity of tablet 00:00: mouth [place] 00 every 6 Medical (six) Branch hours as needed for Abdominal pain. ondansetron 2020-0 Yes [id number] 4mg Take 1 [facility] (ZOFRAN) 4 4-18 tablet by ity of mg tablet 00:00: mouth [place] 00 every 8 Medical (eight) Branch hours as needed for Nausea and Vomiting (N/V). pantoprazol 2020-0 Yes [id number] 40mg Take 1 Univers e 4-18 tablet by ity of (PROTONIX) 00:00: mouth [place] 40 mg EC 00 daily. Medical tablet Branch dicyclomine 2020-0 Yes [id number] 20mg Take 1 [facility] 20 mg 4-18 tablet by ity of tablet 00:00: mouth [place] 00 every 6 Medical (six) Branch hours as needed for Abdominal pain. ondansetron 2020-0 Yes [id number] 4mg Take 1 [facility] (ZOFRAN) 4 4-18 tablet by ity of mg tablet 00:00: mouth [place] 00 every 8 Medical (eight) Branch hours as needed for Nausea and Vomiting (N/V). pantoprazol 2020-0 Yes [id number] 40mg Take 1 Univers e 4-18 tablet by ity of (PROTONIX) 00:00: mouth [place] 40 mg EC 00 daily. Medical tablet Branch dicyclomine 2020-0 Yes [id number] 20mg Take 1 [facility] 20 mg 4-18 tablet by ity of tablet 00:00: mouth [place] 00 every 6 Medical (six) Branch hours as needed for Abdominal pain. ondansetron 2020-0 Yes [id number] 4mg Take 1 [facility] (ZOFRAN) 4 4-18 tablet by ity of mg tablet 00:00: mouth [place] 00 every 8 Medical (eight) Branch hours as needed for Nausea and Vomiting (N/V). pantoprazol 2020-0 Yes [id number] 40mg Take 1 Univers e 4-18 tablet by ity of (PROTONIX) 00:00: mouth [place] 40 mg EC 00 daily. Medical tablet Branch dicyclomine 2020-0 Yes [id number] 20mg Take 1 [facility] 20 mg 4-18 tablet by ity of tablet 00:00: mouth [place] 00 every 6 Medical (six) Branch hours as needed for Abdominal pain. ondansetron 2020-0 Yes [id number] 4mg Take 1 [facility] (ZOFRAN) 4 4-18 tablet by ity of mg tablet 00:00: mouth [place] 00 every 8 Medical (eight) Branch hours as needed for Nausea and Vomiting (N/V). pantoprazol 2020-0 Yes [id number] 40mg Take 1 Univers e 4-18 tablet by ity of (PROTONIX) 00:00: mouth [place] 40 mg EC 00 daily. Medical tablet Branch dicyclomine 2020-0 Yes [id number] 20mg Take 1 [facility] 20 mg 4-18 tablet by ity of tablet 00:00: mouth [place] 00 every 6 Medical (six) Branch hours as needed for Abdominal pain. ondansetron 2020-0 Yes [id number] 4mg Take 1 [facility] (ZOFRAN) 4 4-18 tablet by ity of mg tablet 00:00: mouth [place] 00 every 8 Medical (eight) Branch hours as needed for Nausea and Vomiting (N/V). pantoprazol 2020-0 Yes [id number] 40mg Take 1 Univers e 4-18 tablet by ity of (PROTONIX) 00:00: mouth [place] 40 mg EC 00 daily. Medical tablet Branch dicyclomine 2020-0 Yes [id number] 20mg Take 1 [facility] 20 mg 4-18 tablet by ity of tablet 00:00: mouth [place] 00 every 6 Medical (six) Branch hours as needed for Abdominal pain. ondansetron 2020-0 Yes [id number] 4mg Take 1 [facility] (ZOFRAN) 4 4-18 tablet by ity of mg tablet 00:00: mouth [place] 00 every 8 Medical (eight) Branch hours as needed for Nausea and Vomiting (N/V). pantoprazol 2020-0 Yes [id number] 40mg Take 1 Univers e 4-18 tablet by ity of (PROTONIX) 00:00: mouth [place] 40 mg EC 00 daily. Medical tablet Branch dicyclomine 2020-0 Yes [id number] 20mg Take 1 [facility] 20 mg 4-18 tablet by ity of tablet 00:00: mouth [place] 00 every 6 Medical (six) Branch hours as needed for Abdominal pain. ondansetron 2020-0 Yes [id number] 4mg Take 1 [facility] (ZOFRAN) 4 4-18 tablet by ity of mg tablet 00:00: mouth [place] 00 every 8 Medical (eight) Branch hours as needed for Nausea and Vomiting (N/V). pantoprazol 2021-0 Yes [id number] 40mg Take 1 [facility] e 4-18 tablet by ity of (PROTONIX) 00:00: mouth [place] 40 mg EC 00 daily. Medical tablet Branch dicyclomine 2020-0 Yes [id number] 20mg Take 1 [facility] 20 mg 4-18 tablet by ity of tablet 00:00: mouth [place] 00 every 6 Medical (six) Branch hours as needed for Abdominal pain. ondansetron 2020-0 Yes [id number] 4mg Take 1 [facility] (ZOFRAN) 4 4-18 tablet by ity of mg tablet 00:00: mouth [place] 00 every 8 Medical (eight) Branch hours as needed for Nausea and Vomiting (N/V). pantoprazol 2020-0 Yes [id number] 40mg Take 1 [facility] e 4-18 tablet by ity of (PROTONIX) 00:00: mouth [place] 40 mg EC 00 daily. Medical tablet Branch dicyclomine 2020-0 Yes [id number] 20mg Take 1 [facility] 20 mg 4-18 tablet by ity of tablet 00:00: mouth [place] 00 every 6 Medical (six) Branch hours as needed for Abdominal pain. ondansetron 2020-0 Yes [id number] 4mg Take 1 [facility] (ZOFRAN) 4 4-18 tablet by ity of mg tablet 00:00: mouth [place] 00 every 8 Medical (eight) Branch hours as needed for Nausea and Vomiting (N/V). pantoprazol 2020-0 Yes [id number] 40mg Take 1 [facility] e 4-18 tablet by ity of (PROTONIX) 00:00: mouth [place] 40 mg EC 00 daily. Medical tablet Branch dicyclomine 2020-0 Yes [id number] 20mg Take 1 [facility] 20 mg 4-18 tablet by ity of tablet 00:00: mouth [place] 00 every 6 Medical (six) Branch hours as needed for Abdominal pain. ondansetron 2020-0 Yes [id number] 4mg Take 1 [facility] (ZOFRAN) 4 4-18 tablet by ity of mg tablet 00:00: mouth [place] 00 every 8 Medical (eight) Branch hours as needed for Nausea and Vomiting (N/V). pantoprazol 2020-0 Yes [id number] 40mg Take 1 Univers e 4-18 tablet by ity of (PROTONIX) 00:00: mouth [place] 40 mg EC 00 daily. Medical tablet Branch dicyclomine 2020-0 Yes [id number] 20mg Take 1 [facility] 20 mg 4-18 tablet by ity of tablet 00:00: mouth [place] 00 every 6 Medical (six) Branch hours as needed for Abdominal pain. ondansetron 2020-0 Yes [id number] 4mg Take 1 [facility] (ZOFRAN) 4 4-18 tablet by ity of mg tablet 00:00: mouth [place] 00 every 8 Medical (eight) Branch hours as needed for Nausea and Vomiting (N/V). pantoprazol 2020-0 Yes [id number] 40mg Take 1 [facility] 4-18 tablet by [facility] (PROTONIX) 00:00: mouth [place] 40 mg EC 00 daily. Medical tablet Branch dicyclomine 2020-0 Yes [id number] 20mg Take 1 [facility] 20 mg 4-18 tablet by [facility] of tablet 00:00: mouth [place] 00 every 6 Medical (six) Branch hours as needed for Abdominal pain. ondansetron 2020-0 Yes [id number] 4mg Take 1 [facility] (ZOFRAN) 4 4-18 tablet by [facility] of mg tablet 00:00: mouth [place] 00 every 8 Medical (eight) Branch hours as needed for Nausea and Vomiting (N/V). pantoprazol 2020-0 Yes [id number] 40mg Take 1 [facility] e 4-18 tablet by [facility] of (PROTONIX) 00:00: mouth [place] 40 mg EC 00 daily. Medical tablet Branch dicyclomine 2020-0 Yes [id number] 20mg Take 1 [facility] 20 mg 4-18 tablet by [facility] of tablet 00:00: mouth [place] 00 every 6 Medical (six) Branch hours as needed for Abdominal pain. pantoprazol 2020-0 Yes [id number] 40mg Take 1 [facility] e 4-18 tablet by [facility] of (PROTONIX) 00:00: mouth [place] 40 mg EC 00 daily. Medical tablet Branch dicyclomine 2020-0 Yes [id number] 20mg Take 1 [facility] 20 mg 4-18 tablet by [facility] of tablet 00:00: mouth [place] 00 every 6 Medical (six) Branch hours as needed for Abdominal pain. pantoprazol 2020-0 Yes [id number] 40mg Take 1 [facility] e 4-18 tablet by [facility] of (PROTONIX) 00:00: mouth [place] 40 mg EC 00 daily. Medical tablet Branch dicyclomine 2020-0 Yes [id number] 20mg Take 1 [facility] 20 mg 4-18 tablet by [facility] of tablet 00:00: mouth [place] 00 every 6 Medical (six) Branch hours as needed for Abdominal pain. pantoprazol 2020-0 Yes [id number] 40mg Take 1 [facility] e 4-18 tablet by [facility] of (PROTONIX) 00:00: mouth [place] 40 mg EC 00 daily. Medical tablet Branch dicyclomine 2020-0 Yes [id number] 20mg Take 1 [facility] 20 mg 4-18 tablet by [facility] of tablet 00:00: mouth [place] 00 every 6 Medical (six) Branch hours as needed for Abdominal pain. pantoprazol 2020-0 Yes [id number] 40mg Take 1 [facility] e 4-18 tablet by [facility] of (PROTONIX) 00:00: mouth [place] 40 mg EC 00 daily. Medical tablet Branch dicyclomine 2020-0 Yes [id number] 20mg Take 1 [facility] 20 mg 4-18 tablet by [facility] of tablet 00:00: mouth [place] 00 every 6 Medical (six) Branch hours as needed for Abdominal pain. pantoprazol 2020-0 Yes [id number] 40mg Take 1 [facility] e 4-18 tablet by [facility] of (PROTONIX) 00:00: mouth [place] 40 mg EC 00 daily. Medical tablet Branch dicyclomine 2020-0 Yes [id number] 20mg Take 1 [facility] 20 mg 4-18 tablet by [facility] of tablet 00:00: mouth [place] 00 every 6 Medical (six) Branch hours as needed for Abdominal pain. pantoprazol 2020-0 Yes [id number] 40mg Take 1 [facility] e 4-18 tablet by [facility] of (PROTONIX) 00:00: mouth [place] 40 mg EC 00 daily. Medical tablet Branch dicyclomine 2020-0 Yes [id number] 20mg Take 1 [facility] 20 mg 4-18 tablet by [facility] of tablet 00:00: mouth [place] 00 every 6 Medical (six) Branch hours as needed for Abdominal pain. pantoprazol 2020-0 Yes [id number] 40mg Take 1 [facility] e 4-18 tablet by [facility] of (PROTONIX) 00:00: mouth [place] 40 mg EC 00 daily. Medical tablet Branch dicyclomine 2020-0 Yes [id number] 20mg Take 1 [facility] 20 mg 4-18 tablet by [facility] of tablet 00:00: mouth [place] 00 every 6 Medical (six) Branch hours as needed for Abdominal pain. pantoprazol 2020-0 Yes [id number] 40mg Take 1 [facility] e 4-18 tablet by [facility] of (PROTONIX) 00:00: mouth [place] 40 mg EC 00 daily. Medical tablet Branch dicyclomine 2020-0 Yes [id number] 20mg Take 1 [facility] 20 mg 4-18 tablet by [facility] of tablet 00:00: mouth [place] 00 every 6 Medical (six) Branch hours as needed for Abdominal pain. pantoprazol 2020-0 Yes [id number] 40mg Take 1 [facility] e 4-18 tablet by [facility] of (PROTONIX) 00:00: mouth [place] 40 mg EC 00 daily. Medical tablet Branch dicyclomine 2020-0 Yes [id number] 20mg Take 1 [facility] 20 mg 4-18 tablet by [facility] of tablet 00:00: mouth [place] 00 every 6 Medical (six) Branch hours as needed for Abdominal pain. pantoprazol 2020-0 Yes [id number] 40mg Take 1 [facility] e 4-18 tablet by [facility] of (PROTONIX) 00:00: mouth [place] 40 mg EC 00 daily. Medical tablet Branch dicyclomine 2020-0 Yes [id number] 20mg Take 1 [facility] 20 mg 4-18 tablet by [facility] of tablet 00:00: mouth [place] 00 every 6 Medical (six) Branch hours as needed for Abdominal pain. pantoprazol 2020-0 Yes [id number] 40mg Take 1 [facility] e 4-18 tablet by [facility] of (PROTONIX) 00:00: mouth [place] 40 mg EC 00 daily. Medical tablet Branch dicyclomine 2020-0 Yes [id number] 20mg Take 1 [facility] 20 mg 4-18 tablet by [facility] of tablet 00:00: mouth [place] 00 every 6 Medical (six) Branch hours as needed for Abdominal pain. pantoprazol 2020-0 Yes [id number] 40mg Take 1 [facility] e 4-18 tablet by [facility] of (PROTONIX) 00:00: mouth [place] 40 mg EC 00 daily. Medical tablet Branch dicyclomine 2020-0 Yes [id number] 20mg Take 1 [facility] 20 mg 4-18 tablet by [facility] of tablet 00:00: mouth [place] 00 every 6 Medical (six) Branch hours as needed for Abdominal pain. pantoprazol 2020-0 Yes [id number] 40mg Take 1 [facility] e 4-18 tablet by [facility] of (PROTONIX) 00:00: mouth [place] 40 mg EC 00 daily. Medical tablet Branch dicyclomine 2020-0 Yes [id number] 20mg Take 1 [facility] 20 mg 4-18 tablet by [facility] of tablet 00:00: mouth [place] 00 every 6 Medical (six) Branch hours as needed for Abdominal pain. pantoprazol 2020-0 Yes [id number] 40mg Take 1 [facility] e 4-18 tablet by [facility] of (PROTONIX) 00:00: mouth [place] 40 mg EC 00 daily. Medical tablet Branch dicyclomine 2020-0 Yes [id number] 20mg Take 1 [facility] 20 mg 4-18 tablet by [facility] of tablet 00:00: mouth [place] 00 every 6 Medical (six) Branch hours as needed for Abdominal pain. pantoprazol 2020-0 Yes [id number] 40mg Take 1 [facility] e 4-18 tablet by [facility] of (PROTONIX) 00:00: mouth [place] 40 mg EC 00 daily. Medical tablet Branch dicyclomine 2020-0 Yes [id number] 20mg Take 1 [facility] 20 mg 4-18 tablet by [facility] of tablet 00:00: mouth [place] 00 every 6 Medical (six) Branch hours as needed for Abdominal pain. pantoprazol 2020-0 Yes [id number] 40mg Take 1 [facility] e 4-18 tablet by [facility] of (PROTONIX) 00:00: mouth [place] 40 mg EC 00 daily. Medical tablet Branch dicyclomine 2020-0 Yes [id number] 20mg Take 1 [facility] 20 mg 4-18 tablet by [facility] of tablet 00:00: mouth [place] 00 every 6 Medical (six) Branch hours as needed for Abdominal pain. pantoprazol 2020-0 Yes [id number] 40mg Take 1 [facility] e 4-18 tablet by [facility] of (PROTONIX) 00:00: mouth [place] 40 mg EC 00 daily. Medical tablet Branch dicyclomine 2020-0 Yes [id number] 20mg Take 1 [facility] 20 mg 4-18 tablet by [facility] of tablet 00:00: mouth [place] 00 every 6 Medical (six) Branch hours as needed for Abdominal pain. pantoprazol 2020-0 Yes [id number] 40mg Take 1 [facility] e 4-18 tablet by [facility] of (PROTONIX) 00:00: mouth [place] 40 mg EC 00 daily. Medical tablet Branch dicyclomine 2020-0 Yes [id number] 20mg Take 1 [facility] 20 mg 4-18 tablet by [facility] of tablet 00:00: mouth [place] 00 every 6 Medical (six) Branch hours as needed for Abdominal pain. pantoprazol 2020-0 Yes [id number] 40mg Take 1 [facility] e 4-18 tablet by [facility] of (PROTONIX) 00:00: mouth [place] 40 mg EC 00 daily. Medical tablet Branch dicyclomine 2020-0 Yes [id number] 20mg Take 1 [facility] 20 mg 4-18 tablet by [facility] of tablet 00:00: mouth [place] 00 every 6 Medical (six) Branch hours as needed for Abdominal pain. pantoprazol 2020-0 Yes [id number] 40mg Take 1 [facility] e 4-18 tablet by [facility] of (PROTONIX) 00:00: mouth [place] 40 mg EC 00 daily. Medical tablet Branch dicyclomine 2020-0 Yes [id number] 20mg Take 1 [facility] 20 mg 4-18 tablet by [facility] of tablet 00:00: mouth [place] 00 every 6 Medical (six) Branch hours as needed for Abdominal pain. pantoprazol 2020-0 Yes [id number] 40mg Take 1 [facility] e 4-18 tablet by [facility] of (PROTONIX) 00:00: mouth [place] 40 mg EC 00 daily. Medical tablet Branch dicyclomine 2020-0 Yes [id number] 20mg Take 1 [facility] 20 mg 4-18 tablet by [facility] of tablet 00:00: mouth [place] 00 every 6 Medical (six) Branch hours as needed for Abdominal pain. pantoprazol 2020-0 Yes [id number] 40mg Take 1 [facility] e 4-18 tablet by [facility] of (PROTONIX) 00:00: mouth [place] 40 mg EC 00 daily. Medical tablet Branch dicyclomine 2020-0 Yes [id number] 20mg Take 1 [facility] 20 mg 4-18 tablet by [facility] of tablet 00:00: mouth [place] 00 every 6 Medical (six) Branch hours as needed for Abdominal pain. ondansetron 2020-0 Yes [id number] 4mg Take 1 [facility] (ZOFRAN) 4 4-18 tablet by [facility] of mg tablet 00:00: mouth [place] 00 every 8 Medical (eight) Branch hours as needed for Nausea and Vomiting (N/V). pantoprazol 2020-0 Yes [id number] 40mg Take 1 [facility] e 4-18 tablet by [facility] of (PROTONIX) 00:00: mouth [place] 40 mg EC 00 daily. Medical tablet Branch dicyclomine 2020-0 Yes [id number] 20mg Take 1 [facility] 20 mg 4-18 tablet by [facility] of tablet 00:00: mouth [place] 00 every 6 Medical (six) Branch hours as needed for Abdominal pain. ondansetron 2020-0 Yes [id number] 4mg Take 1 [facility] (ZOFRAN) 4 4-18 tablet by [facility] of mg tablet 00:00: mouth [place] 00 every 8 Medical (eight) Branch hours as needed for Nausea and Vomiting (N/V). pantoprazol 2020-0 Yes [id number] 40mg Take 1 [facility] e 4-18 tablet by [facility] of (PROTONIX) 00:00: mouth [place] 40 mg EC 00 daily. Medical tablet Branch dicyclomine 0 Yes [id number] 20mg Take 1 [facility] 20 mg 4-18 tablet by [facility] of tablet 00:00: mouth [place] 00 every 6 Medical (six) Branch hours as needed for Abdominal pain. ondansetron 0 Yes [id number] 4mg Take 1 [facility] (ZOFRAN) 4 4-18 tablet by [facility] of mg tablet 00:00: mouth [place] 00 every 8 Medical (eight) Branch hours as needed for Nausea and Vomiting (N/V). pantoprazol 2020-0 Yes [id number] 40mg Take 1 [facility] e 4-18 tablet by [facility] of (PROTONIX) 00:00: mouth [place] 40 mg EC 00 daily. Medical tablet Branch dicyclomine 0 Yes [id number] 20mg Take 1 [facility] 20 mg 4-18 tablet by [facility] of tablet 00:00: mouth [place] 00 every 6 Medical (six) Branch hours as needed for Abdominal pain. ondansetron 2020-0 Yes [id number] 4mg Take 1 [facility] (ZOFRAN) 4 4-18 tablet by [facility] of mg tablet 00:00: mouth [place] 00 every 8 Medical (eight) Branch hours as needed for Nausea and Vomiting (N/V). pantoprazol 2020-0 Yes [id number] 40mg Take 1 [facility] e 4-18 tablet by [facility] of (PROTONIX) 00:00: mouth [place] 40 mg EC 00 daily. Medical tablet Branch dicyclomine 2020-0 Yes [id number] 20mg Take 1 [facility] 20 mg 4-18 tablet by [facility] of tablet 00:00: mouth [place] 00 every 6 Medical (six) Branch hours as needed for Abdominal pain. ondansetron 2020-0 Yes [id number] 4mg Take 1 [facility] (ZOFRAN) 4 4-18 tablet by [facility] of mg tablet 00:00: mouth [place] 00 every 8 Medical (eight) Branch hours as needed for Nausea and Vomiting (N/V). pantoprazol 2020-0 Yes [id number] 40mg Take 1 [facility] e 4-18 tablet by [facility] of (PROTONIX) 00:00: mouth [place] 40 mg EC 00 daily. Medical tablet Branch dicyclomine 0 Yes [id number] 20mg Take 1 [facility] 20 mg 4-18 tablet by [facility] of tablet 00:00: mouth [place] 00 every 6 Medical (six) Branch hours as needed for Abdominal pain. ondansetron 0 Yes [id number] 4mg Take 1 [facility] (ZOFRAN) 4 4-18 tablet by [facility] of mg tablet 00:00: mouth [place] 00 every 8 Medical (eight) Branch hours as needed for Nausea and Vomiting (N/V). pantoprazol 2020-0 Yes [id number] 40mg Take 1 [facility] e 4-18 tablet by [facility] of (PROTONIX) 00:00: mouth [place] 40 mg EC 00 daily. Medical tablet Branch dicyclomine 2020-0 Yes [id number] 20mg Take 1 [facility] 20 mg 4-18 tablet by [facility] of tablet 00:00: mouth [place] 00 every 6 Medical (six) Branch hours as needed for Abdominal pain. ondansetron 2020-0 Yes [id number] 4mg Take 1 [facility] (ZOFRAN) 4 4-18 tablet by [facility] of mg tablet 00:00: mouth [place] 00 every 8 Medical (eight) Branch hours as needed for Nausea and Vomiting (N/V). pantoprazol 2020-0 Yes [id number] 40mg Take 1 [facility] e 4-18 tablet by [facility] of (PROTONIX) 00:00: mouth [place] 40 mg EC 00 daily. Medical tablet Branch dicyclomine 2020-0 Yes [id number] 20mg Take 1 [facility] 20 mg 4-18 tablet by [facility] of tablet 00:00: mouth [place] 00 every 6 Medical (six) Branch hours as needed for Abdominal pain. ondansetron 2020-0 Yes [id number] 4mg Take 1 [facility] (ZOFRAN) 4 4-18 tablet by [facility] of mg tablet 00:00: mouth [place] 00 every 8 Medical (eight) Branch hours as needed for Nausea and Vomiting (N/V). pantoprazol 2020-0 Yes [id number] 40mg Take 1 [facility] e 4-18 tablet by [facility] of (PROTONIX) 00:00: mouth [place] 40 mg EC 00 daily. Medical tablet Branch dicyclomine 2020-0 Yes [id number] 20mg Take 1 [facility] 20 mg 4-18 tablet by [facility] of tablet 00:00: mouth [place] 00 every 6 Medical (six) Branch hours as needed for Abdominal pain. ondansetron 2020-0 Yes [id number] 4mg Take 1 [facility] (ZOFRAN) 4 4-18 tablet by [facility] of mg tablet 00:00: mouth [place] 00 every 8 Medical (eight) Branch hours as needed for Nausea and Vomiting (N/V). pantoprazol 2020-0 Yes [id number] 40mg Take 1 [facility] e 4-18 tablet by [facility] of (PROTONIX) 00:00: mouth [place] 40 mg EC 00 daily. Medical tablet Branch dicyclomine 2020-0 Yes [id number] 20mg Take 1 [facility] 20 mg 4-18 tablet by [facility] of tablet 00:00: mouth [place] 00 every 6 Medical (six) Branch hours as needed for Abdominal pain. ondansetron 2020-0 Yes [id number] 4mg Take 1 [facility] (ZOFRAN) 4 4-18 tablet by [facility] of mg tablet 00:00: mouth [place] 00 every 8 Medical (eight) Branch hours as needed for Nausea and Vomiting (N/V). pantoprazol 2020-0 Yes [id number] 40mg Take 1 [facility] e 4-18 tablet by [facility] of (PROTONIX) 00:00: mouth [place] 40 mg EC 00 daily. Medical tablet Branch dicyclomine 2020-0 Yes [id number] 20mg Take 1 [facility] 20 mg 4-18 tablet by [facility] of tablet 00:00: mouth [place] 00 every 6 Medical (six) Branch hours as needed for Abdominal pain. ondansetron 2020-0 Yes [id number] 4mg Take 1 [facility] (ZOFRAN) 4 4-18 tablet by [facility] of mg tablet 00:00: mouth [place] 00 every 8 Medical (eight) Branch hours as needed for Nausea and Vomiting (N/V). pantoprazol 2020-0 Yes [id number] 40mg Take 1 [facility] e 4-18 tablet by [facility] of (PROTONIX) 00:00: mouth [place] 40 mg EC 00 daily. Medical tablet Branch dicyclomine 2020-0 Yes [id number] 20mg Take 1 [facility] 20 mg 4-18 tablet by [facility] of tablet 00:00: mouth [place] 00 every 6 Medical (six) Branch hours as needed for Abdominal pain. ondansetron 2020-0 Yes [id number] 4mg Take 1 [facility] (ZOFRAN) 4 4-18 tablet by [facility] of mg tablet 00:00: mouth [place] 00 every 8 Medical (eight) Branch hours as needed for Nausea and Vomiting (N/V). pantoprazol 2020-0 Yes [id number] 40mg Take 1 [facility] e 4-18 tablet by [facility] of (PROTONIX) 00:00: mouth [place] 40 mg EC 00 daily. Medical tablet Branch dicyclomine 2020-0 Yes [id number] 20mg Take 1 [facility] 20 mg 4-18 tablet by [facility] of tablet 00:00: mouth [place] 00 every 6 Medical (six) Branch hours as needed for Abdominal pain. ondansetron 2020-0 Yes [id number] 4mg Take 1 [facility] (ZOFRAN) 4 4-18 tablet by [facility] of mg tablet 00:00: mouth [place] 00 every 8 Medical (eight) Branch hours as needed for Nausea and Vomiting (N/V). pantoprazol 2020-0 Yes [id number] 40mg Take 1 [facility] e 4-18 tablet by [facility] of (PROTONIX) 00:00: mouth [place] 40 mg EC 00 daily. Medical tablet Branch dicyclomine 2020-0 Yes [id number] 20mg Take 1 [facility] 20 mg 4-18 tablet by [facility] of tablet 00:00: mouth [place] 00 every 6 Medical (six) Branch hours as needed for Abdominal pain. ondansetron 2020-0 Yes [id number] 4mg Take 1 [facility] (ZOFRAN) 4 4-18 tablet by [facility] of mg tablet 00:00: mouth [place] 00 every 8 Medical (eight) Branch hours as needed for Nausea and Vomiting (N/V). pantoprazol 2020-0 Yes [id number] 40mg Take 1 [facility] e 4-18 tablet by [facility] of (PROTONIX) 00:00: mouth [place] 40 mg EC 00 daily. Medical tablet Branch dicyclomine 2020-0 Yes [id number] 20mg Take 1 [facility] 20 mg 4-18 tablet by [facility] of tablet 00:00: mouth [place] 00 every 6 Medical (six) Branch hours as needed for Abdominal pain. ondansetron 2020-0 Yes [id number] 4mg Take 1 [facility] (ZOFRAN) 4 4-18 tablet by [facility] of mg tablet 00:00: mouth [place] 00 every 8 Medical (eight) Branch hours as needed for Nausea and Vomiting (N/V). pantoprazol 2020-0 Yes [id number] 40mg Take 1 [facility] e 4-18 tablet by [facility] of (PROTONIX) 00:00: mouth [place] 40 mg EC 00 daily. Medical tablet Branch dicyclomine 2020-0 Yes [id number] 20mg Take 1 [facility] 20 mg 4-18 tablet by [facility] of tablet 00:00: mouth [place] 00 every 6 Medical (six) Branch hours as needed for Abdominal pain. ondansetron 2020-0 Yes [id number] 4mg Take 1 [facility] (ZOFRAN) 4 4-18 tablet by [facility] of mg tablet 00:00: mouth [place] 00 every 8 Medical (eight) Branch hours as needed for Nausea and Vomiting (N/V). pantoprazol 2020-0 Yes [id number] 40mg Take 1 [facility] e 4-18 tablet by [facility] of (PROTONIX) 00:00: mouth [place] 40 mg EC 00 daily. Medical tablet Branch dicyclomine 2020-0 Yes [id number] 20mg Take 1 [facility] 20 mg 4-18 tablet by [facility] of tablet 00:00: mouth [place] 00 every 6 Medical (six) Branch hours as needed for Abdominal pain. ondansetron 2020-0 Yes [id number] 4mg Take 1 [facility] (ZOFRAN) 4 4-18 tablet by [facility] of mg tablet 00:00: mouth [place] 00 every 8 Medical (eight) Branch hours as needed for Nausea and Vomiting (N/V). pantoprazol 2021-0 Yes [id number] 40mg Take 1 [facility] e 4-18 tablet by [facility] of (PROTONIX) 00:00: mouth [place] 40 mg EC 00 daily. Medical tablet Branch dicyclomine 2020-0 Yes [id number] 20mg Take 1 [facility] 20 mg 4-18 tablet by [facility] of tablet 00:00: mouth [place] 00 every 6 Medical (six) Branch hours as needed for Abdominal pain. ondansetron 2020-0 Yes [id number] 4mg Take 1 [facility] (ZOFRAN) 4 4-18 tablet by [facility] of mg tablet 00:00: mouth [place] 00 every 8 Medical (eight) Branch hours as needed for Nausea and Vomiting (N/V). pantoprazol 2020-0 Yes [id number] 40mg Take 1 [facility] e 4-18 tablet by [facility] of (PROTONIX) 00:00: mouth [place] 40 mg EC 00 daily. Medical tablet Branch dicyclomine 2020-0 Yes [id number] 20mg Take 1 [facility] 20 mg 4-18 tablet by [facility] of tablet 00:00: mouth [place] 00 every 6 Medical (six) Branch hours as needed for Abdominal pain. ondansetron 2020-0 Yes [id number] 4mg Take 1 [facility] (ZOFRAN) 4 4-18 tablet by [facility] of mg tablet 00:00: mouth [place] 00 every 8 Medical (eight) Branch hours as needed for Nausea and Vomiting (N/V). pantoprazol 2020-0 Yes [id number] 40mg Take 1 [facility] e 4-18 tablet by [facility] of (PROTONIX) 00:00: mouth [place] 40 mg EC 00 daily. Medical tablet Branch dicyclomine 2020-0 Yes [id number] 20mg Take 1 [facility] 20 mg 4-18 tablet by [facility] of tablet 00:00: mouth [place] 00 every 6 Medical (six) Branch hours as needed for Abdominal pain. ondansetron 2020-0 Yes [id number] 4mg Take 1 [facility] (ZOFRAN) 4 4-18 tablet by [facility] of mg tablet 00:00: mouth [place] 00 every 8 Medical (eight) Branch hours as needed for Nausea and Vomiting (N/V). pantoprazol 2020-0 Yes [id number] 40mg Take 1 [facility] e 4-18 tablet by [facility] of (PROTONIX) 00:00: mouth [place] 40 mg EC 00 daily. Medical tablet Branch dicyclomine 2020-0 Yes [id number] 20mg Take 1 [facility] 20 mg 4-18 tablet by [facility] of tablet 00:00: mouth [place] 00 every 6 Medical (six) Branch hours as needed for Abdominal pain. ondansetron 2020-0 Yes [id number] 4mg Take 1 [facility] (ZOFRAN) 4 4-18 tablet by [facility] of mg tablet 00:00: mouth [place] 00 every 8 Medical (eight) Branch hours as needed for Nausea and Vomiting (N/V). pantoprazol 2020-0 Yes [id number] 40mg Take 1 [facility] e 4-18 tablet by [facility] of (PROTONIX) 00:00: mouth [place] 40 mg EC 00 daily. Medical tablet Branch dicyclomine 2020-0 Yes [id number] 20mg Take 1 [facility] 20 mg 4-18 tablet by [facility] of tablet 00:00: mouth [place] 00 every 6 Medical (six) Branch hours as needed for Abdominal pain. ondansetron 2020-0 Yes [id number] 4mg Take 1 [facility] (ZOFRAN) 4 4-18 tablet by [facility] of mg tablet 00:00: mouth [place] 00 every 8 Medical (eight) Branch hours as needed for Nausea and Vomiting (N/V). pantoprazol 2020-0 Yes [id number] 40mg Take 1 [facility] e 4-18 tablet by [facility] of (PROTONIX) 00:00: mouth [place] 40 mg EC 00 daily. Medical tablet Branch dicyclomine 2020-0 Yes [id number] 20mg Take 1 [facility] 20 mg 4-18 tablet by [facility] of tablet 00:00: mouth [place] 00 every 6 Medical (six) Branch hours as needed for Abdominal pain. ondansetron 2020-0 Yes [id number] 4mg Take 1 [facility] (ZOFRAN) 4 4-18 tablet by [facility] of mg tablet 00:00: mouth [place] 00 every 8 Medical (eight) Branch hours as needed for Nausea and Vomiting (N/V). ondansetron 2020-0 2023- No [id number] 4mg Take 1 [facility] (ZOFRAN) 4 4-18 06-27 tablet by [facility] of mg tablet 00:00: 00:00 mouth [place] 00 :00 every 8 Medical (eight) Branch hours as needed for Nausea and Vomiting (N/V). ondansetron 0 2023- No [id number] 4mg Take 1 [facility] (ZOFRAN) 4 4-18 [...] (scale 4-6). Indication s: acute pain acetaminoph 2019-1 Yes [id number] 1{tbl} Take 1-2 [facility] en-codeine [...] 1-3). Indication s: acute pain acetaminoph 2020-0 2022- No 4647 1{tbl} Take 1 [facility] en-codeine 8-08 10-05 tablet by [facility] of (TYLENOL-CO 00:00: 00:00 [facility] [place] #3) 00 :00 every 4 Medical 300-30 mg (four) Branch tablet hours as needed for Pain (scale 1-3). Indication s: acute pain acetaminoph 2020-0 2022- No 4647 1{tbl} Take 1 U [...] 00 DAILY UNTIL FINISHED. nystatin 2020-0 Yes [id number] Apply to [facility] 100,000 2-05 affected [facility] of unit/gram 00:00: area(s) 3 [facility] as ointment 00 (three) Medical times Branch daily. nystatin 2020-0 Yes [id number] Apply to [facility] 100,000 2-05 affected [facility] of unit/gram 00:00: area(s) 3 [place] [facility] ointment 00 (three) Medical times Branch daily. nystatin 2020-0 Yes [id number] Apply to [facility] 100,000 2-05 affected [facility] of unit/gram 00:00: area(s) 3 [place] [facility] ointment 00 (three) Medical times Branch daily. nystatin 2020-0 Yes [id number] Apply to [facility] 100,000 2-05 affected [facility] of unit/gram 00:00: area(s) 3 [place] as ointment 00 (three) Medical times Branch daily. nystatin 2020-0 Yes [id number] Apply to [facility] 100,000 2-05 affected [facility] of unit/gram 00:00: area(s) 3 [place] as ointment 00 (three) Medical times Branch daily. nystatin 2020-0 Yes [id number] Apply to [facility] 100,000 2-05 affected [facility]y of unit/gram 00:00: area(s) 3 [place] as ointment 00 (three) Medical times Branch daily. nystatin 2020-0 Yes [id number] Apply to [facility] 100,000 2-05 affected [facility] of unit/gram 00:00: area(s) 3 [place] as ointment 00 (three) Medical times Branch daily. nystatin 2020-0 Yes [id number] Apply to [facility] 100,000 2-05 affected [facility]y of unit/gram 00:00: area(s) 3 [place] as ointment 00 (three) Medical times Branch daily. nystatin 2020-0 Yes [id number] Apply to [facility] 100,000 2-05 affected [facility]y of unit/gram 00:00: area(s) 3 [place] as ointment 00 (three) Medical times Branch daily. nystatin 2020-0 Yes [id number] Apply to [facility] 100,000 2-05 affected [facility]y of unit/gram 00:00: area(s) 3 [place] as ointment 00 (three) Medical times Branch daily. nystatin 2020-0 Yes [id number] Apply to [facility] 100,000 2-05 affected [facility]y of unit/gram 00:00: area(s) 3 [place] as ointment 00 (three) Medical times Branch daily. nystatin 2020-0 Yes [id number] Apply to [facility] 100,000 2-05 affected [facility]y of unit/gram 00:00: area(s) 3 [place] as ointment 00 (three) Medical times Branch daily. nystatin 2020-0 Yes [id number] Apply to [facility] 100,000 2-05 affected [facility]y of unit/gram 00:00: area(s) 3 [place] as ointment 00 (three) Medical times Branch daily. nystatin 2020-0 Yes [id number] Apply to [facility] 100,000 2-05 affected [facility]y of unit/gram 00:00: area(s) 3 [place] as ointment 00 (three) Medical times Branch daily. nystatin 2020-0 Yes [id number] Apply to [facility] 100,000 2-05 affected [facility]y of unit/gram 00:00: area(s) 3 [place] as ointment 00 (three) Medical times Branch daily. nystatin 2020-0 Yes [id number] Apply to [facility] 100,000 2-05 affected [facility]y of unit/gram 00:00: area(s) 3 [facility] as ointment 00 (three) Medical times Branch daily. nystatin 2020-0 Yes [id number] Apply to [facility] 100,000 2-05 affected [facility]y of unit/gram 00:00: area(s) 3 [place] as ointment 00 (three) Medical times Branch daily. nystatin 2020-0 Yes [id number] Apply to [facility] 100,000 2-05 affected [facility]y of unit/gram 00:00: area(s) 3 [facility] as ointment 00 (three) Medical times Branch daily. nystatin 2020-0 Yes [id number] Apply to [facility] 100,000 2-05 affected [facility]y of unit/gram 00:00: area(s) 3 [place] as ointment 00 (three) Medical times Branch daily. nystatin 2020-0 Yes [id number] Apply to [facility] 100,000 2-05 affected [facility]y of unit/gram 00:00: area(s) 3 [place] as ointment 00 (three) Medical times Branch daily. nystatin 2020-0 Yes [id number] Apply to [facility] 100,000 2-05 affected [facility]y of unit/gram 00:00: area(s) 3 [facility] as ointment 00 (three) Medical times Branch daily. nystatin 2020-0 Yes [id number] Apply to [facility] 100,000 2-05 affected [facility]y of unit/gram 00:00: area(s) 3 [facility] as ointment 00 (three) Medical times Branch daily. nystatin 2020-0 Yes [id number] Apply to [facility] 100,000 2-05 affected [facility]y of unit/gram 00:00: area(s) 3 [facility] as ointment 00 (three) Medical times Branch daily. nystatin 2020-0 Yes [id number] Apply to [facility] 100,000 2-05 affected [facility]y of unit/gram 00:00: area(s) 3 [facility] as ointment 00 (three) Medical times Branch daily. nystatin 2020-0 Yes [id number] Apply to [facility] 100,000 2-05 affected ity of unit/gram 00:00: area(s) 3 [facility] as ointment 00 (three) [facility] times Branch daily. nystatin 2020-0 Yes [id number] Apply to [facility] 100,000 2-05 affected ity of unit/gram 00:00: area(s) 3 [facility]ay as ointment 00 (three) [facility] times Branch daily. nystatin 2020-0 Yes [id number] Apply to [facility] 100,000 2-05 affected ity of unit/gram 00:00: area(s) 3 [facility]ay as ointment 00 (three) Medical times Branch daily. nystatin 2020-0 Yes [id number] Apply to [facility] 100,000 2-05 affected ity of unit/gram 00:00: area(s) 3 [facility] as ointment 00 (three) Medical times Branch daily. nystatin 2020-0 Yes [id number] Apply to [facility] 100,000 2-05 affected ity of unit/gram 00:00: area(s) 3 [facility] as ointment 00 (three) Medical times Branch daily. nystatin 2020-0 Yes [id number] Apply to [facility] 100,000 2-05 affected ity of unit/gram 00:00: area(s) 3 [facility] as ointment 00 (three) Medical times Branch daily. nystatin 2020-0 Yes [id number] Apply to [facility] 100,000 2-05 affected ity of unit/gram 00:00: area(s) 3 [facility] as ointment 00 (three) Medical times Branch daily. nystatin 2020-0 Yes [id number] Apply to [facility] 100,000 2-05 affected ity of unit/gram 00:00: area(s) 3 [facility] as ointment 00 (three) Medical times Branch daily. nystatin 2020-0 Yes [id number] Apply to [facility] 100,000 2-05 affected ity of unit/gram 00:00: area(s) 3 [facility] as ointment 00 (three) Medical times Branch daily. nystatin 2020-0 Yes [id number] Apply to [facility] 100,000 2-05 affected ity of unit/gram 00:00: area(s) 3 [facility] as ointment 00 (three) [facility] times Branch daily. nystatin 2020-0 Yes [id number] Apply to [facility] 100,000 2-05 affected ity of unit/gram 00:00: area(s) 3 [facility] as ointment 00 (three) Medical times Branch daily. nystatin 2020-0 Yes [id number] Apply to [facility] 100,000 2-05 affected ity of unit/gram 00:00: area(s) 3 [facility] as ointment 00 (three) Medical times Branch daily. nystatin 2020-0 Yes [id number] Apply to [facility] 100,000 2-05 affected ity of unit/gram 00:00: area(s) 3 [facility] as ointment 00 (three) Medical times Branch daily. nystatin 2020-0 Yes [id number] Apply to [facility] 100,000 2-05 affected ity of unit/gram 00:00: area(s) 3 [facility] as ointment 00 (three) Medical times Branch daily. nystatin 2020-0 Yes [id number] Apply to [facility] 100,000 2-05 affected ity of unit/gram 00:00: area(s) 3 [facility] as ointment 00 (three) Medical times Branch daily. nystatin 2020-0 Yes [id number] Apply to [facility] 100,000 2-05 affected ity of unit/gram 00:00: area(s) 3 [facility] as ointment 00 (three) Medical times Branch daily. nystatin 2020-0 Yes [id number] Apply to [facility] 100,000 2-05 affected ity of unit/gram 00:00: area(s) 3 [facility] as ointment 00 (three) [facility] times Branch daily. nystatin 2020-0 Yes [id number] Apply to [facility] 100,000 2-05 affected ity of unit/gram 00:00: area(s) 3 [facility] as ointment 00 (three) Medical times Branch daily. nystatin 2020-0 Yes [id number] Apply to [facility] 100,000 2-05 affected ity of unit/gram 00:00: area(s) 3 [facility] as ointment 00 (three) Medical times Branch daily. nystatin 2020-0 Yes [id number] Apply to [facility] 100,000 2-05 affected ity of unit/gram 00:00: area(s) 3 [facility] as ointment 00 (three) Medical times Branch daily. nystatin 2020-0 Yes [id number] Apply to [facility] 100,000 2-05 affected ity of unit/gram 00:00: area(s) 3 [facility] as ointment 00 (three) [facility] times Branch daily. nystatin 2020-0 Yes [id number] Apply to [facility] 100,000 2-05 affected ity of unit/gram 00:00: area(s) 3 [facility] as ointment 00 (three) Medical times Branch daily. nystatin 2020-0 Yes [id number] Apply to [facility] 100,000 2-05 affected ity of unit/gram 00:00: area(s) 3 [facility] as ointment 00 (three) Medical times Branch daily. nystatin 2020-0 Yes [id number] Apply to [facility] 100,000 2-05 affected ity of unit/gram 00:00: area(s) 3 [facility] as ointment 00 (three) Medical times Branch daily. nystatin 2020-0 Yes [id number] Apply to [facility] 100,000 2-05 affected ity of unit/gram 00:00: area(s) 3 [facility] as ointment 00 (three) [facility] times Branch daily. nystatin 2020-0 Yes [id number] Apply to [facility] 100,000 2-05 affected ity of unit/gram 00:00: area(s) 3 [facility] as ointment 00 (three) Medical times Branch daily. nystatin 2020-0 Yes [id number] Apply to [facility] 100,000 2-05 affected ity of unit/gram 00:00: area(s) 3 [facility] as ointment 00 (three) [facility] times Branch daily. nystatin 2020-0 Yes [id number] Apply to [facility] 100,000 2-05 affected ity of unit/gram 00:00: area(s) 3 [facility] as ointment 00 (three) Medical times Branch daily. nystatin 2020-0 Yes [id number] Apply to [facility] 100,000 2-05 affected ity of unit/gram 00:00: area(s) 3 [facility] as ointment 00 (three) Medical times Branch daily. nystatin 2020-0 Yes [id number] Apply to [facility] 100,000 2-05 affected ity of unit/gram 00:00: area(s) 3 [facility] as ointment 00 (three) Medical times Branch daily. nystatin 2020-0 Yes [id number] Apply to [facility] 100,000 2-05 affected ity of unit/gram 00:00: area(s) 3 [facility] as ointment 00 (three) Medical times Branch daily. nystatin 2020-0 Yes [id number] Apply to [facility] 100,000 2-05 affected ity of unit/gram 00:00: area(s) 3 [facility] as ointment 00 (three) [facility] times Branch daily. nystatin 2020-0 Yes [id number] Apply to [facility] 100,000 2-05 affected ity of unit/gram 00:00: area(s) 3 [facility] as ointment 00 (three) Medical times Branch daily. nystatin 2020-0 Yes [id number] Apply to [facility] 100,000 2-05 affected ity of unit/gram 00:00: area(s) 3 [facility] as ointment 00 (three) Medical times Branch daily. nystatin 2020-0 Yes [id number] Apply to [facility] 100,000 2-05 affected ity of unit/gram 00:00: area(s) 3 [facility] as ointment 00 (three) Medical times Branch daily. nystatin 2020-0 Yes [id number] Apply to [facility] 100,000 2-05 affected ity of unit/gram 00:00: area(s) 3 [facility] as ointment 00 (three) Medical times Branch daily. nystatin 2020-0 Yes [id number] Apply to [facility] 100,000 2-05 affected ity of unit/gram 00:00: area(s) 3 [facility] as ointment 00 (three) Medical times Branch daily. nystatin 2020-0 Yes [id number] Apply to [facility] 100,000 2-05 affected ity of unit/gram 00:00: area(s) 3 [facility] as ointment 00 (three) Medical times Branch daily. nystatin 2020-0 Yes [id number] Apply to [facility] 100,000 2-05 affected ity of unit/gram 00:00: area(s) 3 [facility] as ointment 00 (three) Medical times Branch daily. nystatin 2020-0 Yes [id number] Apply to [facility] 100,000 2-05 affected ity of unit/gram 00:00: area(s) 3 [facility] as ointment 00 (three) Medical times Branch daily. nystatin 2020-0 Yes [id number] Apply to [facility] 100,000 2-05 affected ity of unit/gram 00:00: area(s) 3 [facility] as ointment 00 (three) Medical times Branch daily. nystatin 2020-0 Yes [id number] Apply to [facility] 100,000 2-05 affected ity of unit/gram 00:00: area(s) 3 [facility] as ointment 00 (three) Medical times Branch daily. nystatin 2020-0 Yes [id number] Apply to [facility] 100,000 2-05 affected ity of unit/gram 00:00: area(s) 3 [facility] as ointment 00 (three) Medical times Branch daily. nystatin 2020-0 Yes [id number] Apply to [facility] 100,000 2-05 affected ity of unit/gram 00:00: area(s) 3 [facility] as ointment 00 (three) Medical times Branch daily. nystatin 2020-0 Yes [id number] Apply to [facility] 100,000 2-05 affected ity [...] Tablet Tablet 00 DIRECTED. medroxyPROG 2019- Yes [id number] 150mg [facility] ESTERone 5-14 ity of (DEPO-PROVE 18:30: [place] [facility]) 00 [facility] injection [facility] 150 mg medroxyPROG 2019-0 Yes [id number] 150mg [facility] ESTERone 5-14 ity of (DEPO-PROVE 18:30: [place] [facility]) 00 [facility] injection [facility] 150 mg medroxyPROG 2019-0 Yes [id number] 150mg [facility] ESTERone 5-14 ity of (DEPO-PROVE 18:30: [place] [facility]) 00 [facility] injection [facility] 150 mg medroxyPROG 2019-0 Yes [id number] 150mg [facility] ESTERone 5-14 ity of (DEPO-PROVE 18:30: [place] [facility]) 00 [facility] injection [facility] 150 mg medroxyPROG 2019-0 Yes [id number] 150mg [facility] ESTERone 5-14 ity of (DEPO-PROVE 18:30: [place] [facility]) 00 [facility] injection [facility] 150 mg medroxyPROG 2019-0 Yes [id number] 150mg [facility] ESTERone 5-14 ity of (DEPO-PROVE 18:30: [place] [facility]) 00 [facility] injection [facility] 150 mg medroxyPROG 2019-0 Yes [id number] 150mg [facility] ESTERone 5-14 ity of (DEPO-PROVE 18:30: [place] [facility]) 00 [facility] injection [facility] 150 mg medroxyPROG 2019-0 Yes [id number] 150mg [facility] ESTERone 5-14 ity of (DEPO-PROVE 18:30: [place] [facility]) 00 [facility] injection [facility] 150 mg medroxyPROG 2019-0 Yes [id number] 150mg [facility] ESTERone 5-14 ity of (DEPO-PROVE 18:30: [place] [facility]) 00 [facility] injection [facility] 150 mg medroxyPROG 2019-0 Yes [id number] 150mg [facility] ESTERone 5-14 ity of (DEPO-PROVE 18:30: [place] [facility]) 00 Medical injection [facility] 150 mg medroxyPROG 2019-0 Yes [id number] 150mg [facility] ESTERone 5-14 ity of (DEPO-PROVE 18:30: [place] [facility]) 00 Medical injection [facility] 150 mg medroxyPROG 2019-0 Yes [id number] 150mg [facility] ESTERone 5-14 ity of (DEPO-PROVE 18:30: [place] [facility]) 00 Medical injection [facility] 150 mg medroxyPROG 2019-0 Yes [id number] 150mg [facility] ESTERone 5-14 ity of (DEPO-PROVE 18:30: [place] [facility]) 00 Medical injection [facility] 150 mg medroxyPROG 2019-0 Yes [id number] 150mg [facility] ESTERone 5-14 ity of (DEPO-PROVE 18:30: [place] [facility]) 00 Medical injection [facility] 150 mg medroxyPROG 2019-0 Yes [id number] 150mg [facility] ESTERone 5-14 ity of (DEPO-PROVE 18:30: [place] [facility]) 00 Medical injection [facility] 150 mg medroxyPROG 2019-0 Yes [id number] 150mg [facility] ESTERone 5-14 ity of (DEPO-PROVE 18:30: [place] [facility]) 00 Medical injection [facility] 150 mg medroxyPROG 2019-0 Yes [id number] 150mg [facility] ESTERone 5-14 ity of (DEPO-PROVE 18:30: [place] [facility]) 00 [facility] injection [facility] 150 mg medroxyPROG 2019-0 Yes [id number] 150mg [facility] ESTERone 5-14 ity of (DEPO-PROVE 18:30: [place] [facility]) 00 [facility] injection [facility] 150 mg medroxyPROG 2019-0 Yes [id number] 150mg [facility] ESTERone 5-14 ity of (DEPO-PROVE 18:30: [place] [facility]) 00 Medical injection [facility] 150 mg medroxyPROG 2019-0 Yes [id number] 150mg [facility] ESTERone 5-14 ity of (DEPO-PROVE 18:30: [place] [facility]) 00 Medical injection [facility] 150 mg medroxyPROG 2019-0 Yes [id number] 150mg [facility] ESTERone 5-14 ity of (DEPO-PROVE 18:30: [place] [facility]) 00 Medical injection [facility] 150 mg medroxyPROG 2019-0 Yes [id number] 150mg [facility] ESTERone 5-14 ity of (DEPO-PROVE 18:30: [place] [facility]) 00 Medical injection [facility] 150 mg medroxyPROG 2019-0 Yes [id number] 150mg [facility] ESTERone 5-14 ity of (DEPO-PROVE 18:30: [place] [facility]) 00 Medical injection [facility] 150 mg medroxyPROG 2019-0 Yes [id number] 150mg [facility] ESTERone 5-14 ity of (DEPO-PROVE 18:30: [place] [facility]) 00 Medical injection [facility] 150 mg medroxyPROG 2019-0 Yes [id number] 150mg [facility] ESTERone 5-14 ity of (DEPO-PROVE 18:30: [place] [facility]) 00 Medical injection [facility] 150 mg medroxyPROG 2019-0 Yes [id number] 150mg [facility] ESTERone 5-14 ity of (DEPO-PROVE 18:30: [place] [facility]) 00 Medical injection [facility] 150 mg medroxyPROG 2019-0 Yes [id number] 150mg [facility] ESTERone 5-14 ity of (DEPO-PROVE 18:30: [place] [facility]) 00 Medical injection [facility] 150 mg medroxyPROG 2019-0 Yes [id number] 150mg [facility] ESTERone 5-14 ity of (DEPO-PROVE 18:30: [place] [facility]) 00 Medical injection [facility] 150 mg medroxyPROG 2019-0 Yes [id number] 150mg [facility] ESTERone 5-14 ity of (DEPO-PROVE 18:30: [place] [facility]) 00 Medical injection [facility] 150 mg medroxyPROG 2019-0 Yes [id number] 150mg [facility] ESTERone 5-14 ity of (DEPO-PROVE 18:30: [place] [facility]) 00 Medical injection [facility] 150 mg medroxyPROG 2019-0 Yes [id number] 150mg [facility] ESTERone 5-14 ity of (DEPO-PROVE 18:30: [place] [facility]) 00 Medical injection [facility] 150 mg medroxyPROG 2019-0 Yes [id number] 150mg [facility] ESTERone 5-14 ity of (DEPO-PROVE 18:30: [place] [facility]) 00 Medical injection [facility] 150 mg medroxyPROG 2019-0 Yes [id number] 150mg [facility] ESTERone 5-14 ity of (DEPO-PROVE 18:30: [place] [facility]) 00 Medical injection [facility] 150 mg medroxyPROG 2019-0 Yes [id number] 150mg [facility] ESTERone 5-14 ity of (DEPO-PROVE 18:30: [place] [facility]) 00 Medical injection [facility] 150 mg medroxyPROG 2019-0 Yes [id number] 150mg [facility] ESTERone 5-14 ity of (DEPO-PROVE 18:30: [place] [facility]) 00 Medical injection [facility] 150 mg medroxyPROG 2019-0 Yes [id number] 150mg [facility] ESTERone 5-14 ity of (DEPO-PROVE 18:30: [place] [facility]) 00 Medical injection [facility] 150 mg medroxyPROG 2019-0 Yes [id number] 150mg [facility] ESTERone 5-14 ity of (DEPO-PROVE 18:30: [place] [facility]) 00 Medical injection [facility] 150 mg medroxyPROG 2019-0 Yes [id number] 150mg [facility] ESTERone 5-14 ity of (DEPO-PROVE 18:30: [place] [facility]) 00 Medical injection [facility] 150 mg medroxyPROG 2019-0 Yes [id number] 150mg [facility] ESTERone 5-14 ity of (DEPO-PROVE 18:30: [place] [facility]) 00 Medical injection [facility] 150 mg medroxyPROG 2019-0 Yes [id number] 150mg [facility] ESTERone 5-14 ity of (DEPO-PROVE 18:30: [place] [facility]) 00 Medical injection Branch 150 mg medroxyPROG 2019-0 Yes [id number] 150mg [facility] ESTERone 5-14 ity of (DEPO-PROVE 18:30: [place] [facility]) 00 Medical injection Branch 150 mg medroxyPROG 2019-0 Yes [id number] 150mg [facility] ESTERone 5-14 ity of (DEPO-PROVE 18:30: [place] [facility]) 00 Medical injection Branch 150 mg medroxyPROG 2019-0 Yes [id number] 150mg [facility] ESTERone 5-14 ity of (DEPO-PROVE 18:30: [place] [facility]) 00 Medical injection [facility] 150 mg medroxyPROG 2019-0 Yes [id number] 150mg [facility] ESTERone 5-14 ity of (DEPO-PROVE 18:30: [place] [facility]) 00 Medical injection Branch 150 mg medroxyPROG 2019-0 Yes [id number] 150mg [facility] ESTERone 5-14 ity of (DEPO-PROVE 18:30: [place] [facility]) 00 Medical injection Branch 150 mg medroxyPROG 2019-0 Yes [id number] 150mg [facility] ESTERone 5-14 ity of (DEPO-PROVE 18:30: [place] [facility]) 00 Medical injection Branch 150 mg medroxyPROG 2019-0 Yes [id number] 150mg [facility] ESTERone 5-14 ity of (DEPO-PROVE 18:30: [place] [facility]) 00 Medical injection Branch 150 mg medroxyPROG 2019-0 Yes [id number] 150mg [facility] ESTERone 5-14 ity of (DEPO-PROVE 18:30: [place] [facility]) 00 Medical injection [facility] 150 mg medroxyPROG 2019-0 Yes [id number] 150mg [facility] ESTERone 5-14 ity of (DEPO-PROVE 18:30: [place] [facility]) 00 Medical injection Branch 150 mg medroxyPROG 2019-0 Yes [id number] 150mg [facility] ESTERone 5-14 ity of (DEPO-PROVE 18:30: [place] [facility]) 00 Medical injection Branch 150 mg medroxyPROG 2019-0 Yes [id number] 150mg [facility] ESTERone 5-14 ity of (DEPO-PROVE 18:30: [place] [facility]) 00 Medical injection Branch 150 mg medroxyPROG 2019-0 Yes [id number] 150mg [facility] ESTERone 5-14 ity of (DEPO-PROVE 18:30: [place] [facility]) 00 Medical injection Branch 150 mg medroxyPROG 2019-0 Yes [id number] 150mg [facility] ESTERone 5-14 ity of (DEPO-PROVE 18:30: [place] [facility]) 00 Medical injection Branch 150 mg medroxyPROG 2019-0 Yes [id number] 150mg [facility] ESTERone 5-14 ity of (DEPO-PROVE 18:30: [place] [facility]) 00 Medical injection Branch 150 mg medroxyPROG 2019-0 Yes [id number] 150mg [facility] ESTERone 5-14 ity of (DEPO-PROVE 18:30: [place] [facility]) 00 Medical injection Branch 150 mg medroxyPROG 2019-0 Yes [id number] 150mg [facility] ESTERone 5-14 ity of (DEPO-PROVE 18:30: [place] [facility]) 00 Medical injection Branch 150 mg medroxyPROG 2019-0 Yes [id number] 150mg [facility] ESTERone 5-14 ity of (DEPO-PROVE 18:30: [place] [facility]) 00 Medical injection Branch 150 mg medroxyPROG 2019-0 Yes [id number] 150mg [facility] ESTERone 5-14 ity of (DEPO-PROVE 18:30: [place] [facility]) 00 Medical injection Branch 150 mg medroxyPROG 2019-0 Yes [id number] 150mg [facility] ESTERone 5-14 ity of (DEPO-PROVE 18:30: [place] [facility]) 00 Medical injection Branch 150 mg medroxyPROG 2019-0 Yes [id number] 150mg [facility] ESTERone 5-14 ity of (DEPO-PROVE 18:30: [place] [facility]) 00 Medical injection Branch 150 mg medroxyPROG 2019-0 Yes [id number] 150mg [facility] ESTERone 5-14 ity of (DEPO-PROVE 18:30: [place] [facility]) 00 Medical injection Branch 150 mg medroxyPROG 2019-0 Yes [id number] 150mg [facility] ESTERone 5-14 ity of (DEPO-PROVE 18:30: [place] [facility]) 00 Medical injection Branch 150 mg medroxyPROG 2019-0 Yes [id number] 150mg [facility] ESTERone 5-14 ity of (DEPO-PROVE 18:30: [place] [facility]) 00 Medical injection Branch 150 mg medroxyPROG 2019-0 Yes [id number] 150mg [facility] ESTERone 5-14 ity of (DEPO-PROVE 18:30: [place] [facility]) 00 Medical injection Branch 150 mg medroxyPROG 2019-0 Yes [id number] 150mg [facility] ESTERone 5-14 ity of (DEPO-PROVE 18:30: [place] [facility]) 00 Medical injection Branch 150 mg medroxyPROG 2019-0 Yes [id number] 150mg [facility] ESTERone 5-14 ity of (DEPO-PROVE 18:30: [place] [facility]) 00 Medical injection Branch 150 mg medroxyPROG 2019-0 Yes [id number] 150mg [facility] ESTERone 5-14 ity of (DEPO-PROVE 18:30: [place] [facility]) 00 Medical injection Branch 150 mg medroxyPROG 2019-0 Yes [id number] 150mg [facility] ESTERone 5-14 ity of (DEPO-PROVE 18:30: [place] [facility]) 00 Medical injection Branch 150 mg medroxyPROG 2019-0 Yes [id number] 150mg [facility] ESTERone 5-14 ity of (DEPO-PROVE [...] [facility] SARS-COV-2 COVID-19 2021-08-06 Completed Unive rsity of PFIZER VACCINE 00:00:00 [facility] SARS-COV-2 COVID-19 2021-08-06 Completed Unive rsity of PFIZER VACCINE 00:00:00 [facility] SARS-COV-2 COVID-19 2021-08-06 Completed Unive rsity of PFIZER VACCINE 00:00:00 [facility] SARS-COV-2 COVID-19 2021-08-06 Completed Unive rsity of PFIZER VACCINE 00:00:00 [facility] SARS-COV-2 COVID-19 2021-08-06 Completed Unive rsity of PFIZER VACCINE 00:00:00 [facility] SARS-COV-2 COVID-19 2021-08-06 Completed Unive rsity of PFIZER VACCINE 00:00:00 [facility] SARS-COV-2 COVID-19 2021-08-06 Completed Unive rsity of PFIZER VACCINE 00:00:00 [facility] SARS-COV-2 COVID-19 2021-08-06 Completed Unive rsity of PFIZER VACCINE 00:00:00 [facility] SARS-COV-2 COVID-19 2021-08-06 Completed Unive rsity of PFIZER VACCINE 00:00:00 [facility] SARS-COV-2 COVID-19 2021-08-06 Completed Unive rsity of PFIZER VACCINE 00:00:00 [facility] SARS-COV-2 COVID-19 2021-08-06 Completed Unive rsity of PFIZER VACCINE 00:00:00 [facility] SARS-COV-2 COVID-19 2021-08-06 Completed Unive rsity of PFIZER VACCINE 00:00:00 [facility] SARS-COV-2 COVID-19 2021-08-06 Completed Unive rsity of PFIZER VACCINE 00:00:00 [facility] SARS-COV-2 COVID-19 2021-08-06 Completed Unive rsity of PFIZER VACCINE 00:00:00 [facility] SARS-COV-2 COVID-19 2021-08-06 Completed Unive rsity of PFIZER VACCINE 00:00:00 [facility] SARS-COV-2 COVID-19 2021-08-06 Completed Unive rsity of PFIZER VACCINE 00:00:00 [facility] SARS-COV-2 COVID-19 2021-08-06 Completed Unive rsity of PFIZER VACCINE 00:00:00 [facility] SARS-COV-2 COVID-19 2021-08-06 Completed Unive rsity of PFIZER VACCINE 00:00:00 [facility] SARS-COV-2 COVID-19 2021-08-06 Completed Unive rsity of PFIZER VACCINE 00:00:00 [facility] SARS-COV-2 COVID-19 2021-08-06 Completed Unive rsity of PFIZER VACCINE 00:00:00 [facility] SARS-COV-2 COVID-19 2021-08-06 Completed Unive rsity of PFIZER VACCINE 00:00:00 [facility] SARS-COV-2 COVID-19 2021-08-06 Completed Unive rsity of PFIZER VACCINE 00:00:00 [facility] SARS-COV-2 COVID-19 2021-08-06 Completed Unive rsity of PFIZER VACCINE 00:00:00 [facility] SARS-COV-2 COVID-19 2021-08-06 Completed Unive rsity of PFIZER VACCINE 00:00:00 [facility] SARS-COV-2 COVID-19 2021-08-06 Completed Unive rsity of PFIZER VACCINE 00:00:00 [facility] SARS-COV-2 COVID-19 2021-08-06 Completed Unive rsity of PFIZER VACCINE 00:00:00 [place] [facility] SARS-COV-2 COVID-19 2021-08-06 Completed Unive rsity of PFIZER VACCINE 00:00:00 [facility] SARS-COV-2 COVID-19 2021-08-06 Completed Unive rsity of PFIZER VACCINE 00:00:00 [facility] PFIZER COVID-19 MRNA 2021-08-06 Completed Meth odist [...] [facility] Influenza Virus 2021-07-09 Completed Universit y of Vaccine Quad .5 mL 00:00:00 [place] [facility] SARS-COV-2 COVID-19 2021-07-09 Completed Unive rsity of PFIZER VACCINE 00:00:00 [facility] Influenza Virus 2021-07-09 Completed Universit y of Vaccine Quad .5 mL 00:00:00 [place] [facility] 6+ [facility] SARS-COV-2 COVID-19 2021-07-09 Completed Unive rsity of PFIZER VACCINE 00:00:00 [facility] Influenza Virus 2021-07-09 Completed [facility]it y of Vaccine Quad .5 mL 00:00:00 [place] [facility] SARS-COV-2 COVID-19 2021-07-09 Completed Unive rsity of PFIZER VACCINE 00:00:00 [facility] Influenza Virus 2021-07-09 Completed [facility]it y of Vaccine Quad .5 mL 00:00:00 [place] [facility] IM 6+ [facility] SARS-COV-2 COVID-19 2021-07-09 Completed Unive rsity of PFIZER VACCINE 00:00:00 [facility] Influenza Virus 2021-07-09 Completed Universit y of Vaccine Quad .5 mL 00:00:00 [place] [facility] IM 6+ [facility] SARS-COV-2 COVID-19 2021-07-09 Completed Unive rsity of PFIZER VACCINE 00:00:00 [facility] Influenza Virus 2021-07-09 Completed [facility]it y of Vaccine Quad .5 mL 00:00:00 [place] [facility] IM 6+ [facility] SARS-COV-2 COVID-19 2021-07-09 Completed Unive rsity of PFIZER VACCINE 00:00:00 [facility] Influenza Virus 2021-07-09 Completed Universit y of Vaccine Quad .5 mL 00:00:00 [place] [facility] SARS-COV-2 COVID-19 2021-07-09 Completed Unive rsity of PFIZER VACCINE 00:00:00 [facility] Influenza Virus 2021-07-09 Completed [facility]it y of Vaccine Quad .5 mL 00:00:00 [place] [facility] 6+ [facility] SARS-COV-2 COVID-19 2021-07-09 Completed Unive rsity of PFIZER VACCINE 00:00:00 [facility] Influenza Virus 2021-07-09 Completed [facility] y of Vaccine Quad .5 mL 00:00:00 [place] [facility] 6[facility] SARS-COV-2 COVID-19 2021-07-09 Completed Unive rsity of PFIZER VACCINE 00:00:00 [facility] Influenza Virus 2021-07-09 Completed [facility] y of Vaccine Quad .5 mL 00:00:00 [place] [facility] SARS-COV-2 COVID-19 2021-07-09 Completed Unive rsity of PFIZER VACCINE 00:00:00 [facility] Influenza Virus 2021-07-09 Completed [facility] of Vaccine Quad .5 mL 00:00:00 [place] [facility] SARS-COV-2 COVID-19 2021-07-09 Completed Unive rsity of PFIZER VACCINE 00:00:00 [facility] Influenza Virus 2021-07-09 Completed [facility] y of Vaccine Quad .5 mL 00:00:00 [place] [facility] SARS-COV-2 COVID-19 2021-07-09 Completed Unive rsity of PFIZER VACCINE 00:00:00 [facility] Influenza Virus 2021-07-09 Completed [facility] y of Vaccine Quad .5 mL 00:00:00 [place] [facility] IM 6+ [facility] SARS-COV-2 COVID-19 2021-07-09 Completed Unive rsity of PFIZER VACCINE 00:00:00 [facility] Influenza Virus 2021-07-09 Completed [facility] y of Vaccine Quad .5 mL 00:00:00 [place] [facility] SARS-COV-2 COVID-19 2021-07-09 Completed Unive rsity of PFIZER VACCINE 00:00:00 [facility] Influenza Virus 2021-07-09 Completed [facility] y of Vaccine Quad .5 mL 00:00:00 [place] [facility] SARS-COV-2 COVID-19 2021-07-09 Completed Unive rsity of PFIZER VACCINE 00:00:00 [facility] Influenza Virus 2021-07-09 Completed [facility] of Vaccine Quad .5 mL 00:00:00 [place] [facility] SARS-COV-2 COVID-19 2021-07-09 Completed Unive rsity of PFIZER VACCINE 00:00:00 [facility] Influenza Virus 2021-07-09 Completed [facility] of Vaccine Quad .5 mL 00:00:00 [place] [facility] SARS-COV-2 COVID-19 2021-07-09 Completed Un[facility] rsity of PFIZER VACCINE 00:00:00 [facility] Influenza Virus 2021-07-09 Completed [facility] y of Vaccine Quad .5 mL 00:00:00 [place] [facility] SARS-COV-2 COVID-19 2021-07-09 Completed Unive rsity of PFIZER VACCINE 00:00:00 [facility] Influenza Virus 2021-07-09 Completed [facility] y of Vaccine Quad .5 mL 00:00:00 [facility] SARS-COV-2 COVID-19 2021-07-09 Completed Unive rsity of PFIZER VACCINE 00:00:00 [facility] Influenza Virus 2021-07-09 Completed Universit y of Vaccine Quad .5 mL 00:00:00 [facility] SARS-COV-2 COVID-19 2021-07-09 Completed Unive rsity of PFIZER VACCINE 00:00:00 [facility] Influenza Virus 2021-07-09 Completed Universit y of Vaccine Quad .5 mL 00:00:00 [facility] 6+ MO Branch SARS-COV-2 COVID-19 2021-07-09 Completed Unive rsity of PFIZER VACCINE 00:00:00 [facility] Influenza Virus 2021-07-09 Completed Universit y of Vaccine Quad .5 mL 00:00:00 [facility] 6+ [place] SARS-COV-2 COVID-19 2021-07-09 Completed Unive rsity of PFIZER VACCINE 00:00:00 [facility] Influenza Virus 2021-07-09 Completed Universit y of Vaccine Quad .5 mL 00:00:00 [facility] 6+ [place] SARS-COV-2 COVID-19 2021-07-09 Completed Unive rsity of PFIZER VACCINE 00:00:00 [facility] Influenza Virus 2021-07-09 Completed [facility]it y of Vaccine Quad .5 mL 00:00:00 [facility] 6+ [place] SARS-COV-2 COVID-19 2021-07-09 Completed Unive rsity of PFIZER VACCINE 00:00:00 [facility] Influenza Virus 2021-07-09 Completed [facility]it y of Vaccine Quad .5 mL 00:00:00 [facility] 6+ [place] SARS-COV-2 COVID-19 2021-07-09 Completed Unive rsity of PFIZER VACCINE 00:00:00 [facility] Influenza Virus 2021-07-09 Completed [facility]it [facility] of Vaccine Quad .5 mL 00:00:00 [facility] 6+ [place] SARS-COV-2 COVID-19 2021-07-09 Completed Unive rsity of PFIZER VACCINE 00:00:00 [facility] Influenza Virus 2021-07-09 Completed [facility]it y of Vaccine Quad .5 mL 00:00:00 [facility] 6+ MO [place] (FLUZONE/FLULAVAL/FL UARIX) SARS-COV-2 COVID-19 2021-07-09 Completed Unive rsity of PFIZER VACCINE 00:00:00 [facility] Influenza Virus 2021-07-09 Completed Universit y of Vaccine Quad .5 mL 00:00:00 [facility] IM 6+ MO Branch (FLUZONE/FLULAVAL/FL UARIX) SARS-COV-2 COVID-19 2021-07-09 Completed Unive rsity of PFIZER VACCINE 00:00:00 [facility] Influenza Virus 2021-07-09 Completed [facility]it y of Vaccine Quad .5 mL 00:00:00 [facility] 6+ MO [facility] (FLUZONE/FLULAVAL/FL UARIX) PFIZER COVID-19 [...] Meth odist VACCINATION 00:00:00 [facility] Tetanus/Diptheria 2016-08-11 Completed Univers ity of 00:00:00 [facility] Varicella 2016-08-11 Completed University of (varivax)(chicken 00:00:00 [place] [facility] pox[facility] Tetanus/Diptheria 2016-08-11 Completed Univers ity of 00:00:00 [facility] Varicella 2016-08-11 Completed University of (varivax)(chicken 00:00:00 [place] [facility] Tetanus/Diptheria 2016-08-11 Completed Univers ity of 00:00:00 [facility] Varicella 2016-08-11 Completed [facility] (varivax)(chicken 00:00:00 [facility] Tetanus/Diptheria 2016-08-11 Completed Univers ity of 00:00:00 [facility] Varicella 2016-08-11 Completed [facility] of (varivax)(chicken 00:00:00 [facility] Tetanus/Diptheria 2016-08-11 Completed Univers ity of 00:00:00 [facility] Varicella 2016-08-11 Completed [facility] of (varivax)(chicken 00:00:00 [facility] Tetanus/Diptheria 2016-08-11 Completed Univers ity of 00:00:00 [facility] Varicella 2016-08-11 Completed [facility] of (varivax)(chicken 00:00:00 [facility] Tetanus/Diptheria 2016-08-11 Completed Univers ity of 00:00:00 [facility] Varicella 2016-08-11 Completed [facility] of (varivax)(chicken 00:00:00 [facility] Tetanus/Diptheria 2016-08-11 Completed [facility] ity of 00:00:00 [facility] Varicella 2016-08-11 Completed University of (varivax)(chicken 00:00:00 [facility] Tetanus/Diptheria 2016-08-11 Completed Univers ity of 00:00:00 [facility] Varicella 2016-08-11 Completed [facility] of (varivax)(chicken 00:00:00 [facility] Tetanus/Diptheria 2016-08-11 Completed Univers ity of 00:00:00 [facility] Varicella 2016-08-11 Completed University of (varivax)(chicken 00:00:00 [facility] Tetanus/Diptheria 2016-08-11 Completed [facility] ity of 00:00:00 [facility] Varicella 2016-08-11 Completed [facility] of (varivax)(chicken 00:00:00 [facility] Tetanus/Diptheria 2016-08-11 Completed [facility] ity of 00:00:00 [facility] Varicella 2016-08-11 Completed [facility] of (varivax)(chicken 00:00:00 [facility] Tetanus/Diptheria 2016-08-11 Completed Univers ity of 00:00:00 [facility] Varicella 2016-08-11 Completed [facility] (varivax)(chicken 00:00:00 [facility] Tetanus/Diptheria 2016-08-11 Completed [facility] ity of 00:00:00 [facility] Varicella 2016-08-11 Completed [facility] of (varivax)(chicken 00:00:00 [place] [facility] Tetanus/Diptheria 2016-08-11 Completed Univers ity of 00:00:00 [facility] Varicella 2016-08-11 Completed [facility] of (varivax)(chicken 00:00:00 [facility] Tetanus/Diptheria 2016-08-11 Completed [facility] ity of 00:00:00 [facility] Varicella 2016-08-11 Completed [facility] of (varivax)(chicken 00:00:00 [facility] Tetanus/Diptheria 2016-08-11 Completed Univers ity of 00:00:00 [facility] Varicella 2016-08-11 Completed [facility] of (varivax)(chicken 00:00:00 [facility] Tetanus/Diptheria 2016-08-11 Completed [facility] ity of 00:00:00 [facility] Varicella 2016-08-11 Completed [facility] of (varivax)(chicken 00:00:00 [facility] Tetanus/Diptheria 2016-08-11 Completed [facility] ity of 00:00:00 [facility] Varicella 2016-08-11 Completed [facility] of (varivax)(chicken 00:00:00 [facility] Tetanus/Diptheria 2016-08-11 Completed [facility] ity of 00:00:00 [facility] Varicella 2016-08-11 Completed [facility] of (varivax)(chicken 00:00:00 [place] [facility] Tetanus/Diptheria 2016-08-11 Completed [facility] ity of 00:00:00 [facility] Varicella 2016-08-11 Completed [facility] of (varivax)(chicken 00:00:00 [place] [facility] Tetanus/Diptheria 2016-08-11 Completed [facility] ity of 00:00:00 [facility] Varicella 2016-08-11 Completed [facility] of (varivax)(chicken 00:00:00 [place] [facility] Tetanus/Diptheria 2016-08-11 Completed Univers ity of 00:00:00 [facility] Varicella 2016-08-11 Completed [facility] of (varivax)(chicken 00:00:00 [place] [facility] Tetanus/Diptheria 2016-08-11 Completed [facility] ity of 00:00:00 [facility] Varicella 2016-08-11 Completed [facility] of (varivax)(chicken 00:00:00 [place] [facility] Tetanus/Diptheria 2016-08-11 Completed [facility] ity of 00:00:00 [facility] Varicella 2016-08-11 Completed [facility] of (varivax)(chicken 00:00:00 [place] [facility] Tetanus/Diptheria 2016-08-11 Completed [facility] ity of 00:00:00 [facility] Varicella 2016-08-11 Completed [facility] of (varivax)(chicken 00:00:00 [place] [facility] Tetanus/Diptheria 2016-08-11 Completed [facility] ity of 00:00:00 [facility] Varicella 2016-08-11 Completed [facility] of (varivax)(chicken 00:00:00 [facility] Tetanus/Diptheria 2016-08-11 Completed Univers ity of 00:00:00 [facility] Varicella 2016-08-11 Completed [facility] of (varivax)(chicken 00:00:00 [facility] Tetanus/Diptheria 2016-08-11 Completed [facility] ity of 00:00:00 [facility] Varicella 2016-08-11 Completed University of [...] HEPATITIS A 2008-09-27 Completed [facility] of 00:00:00 [facility] HPV 2008-09-27 Completed University of 00:00:00 [facility] HEPATITIS A 2008-09-27 Completed University of 00:00:00 [facility] HPV 2008-09-27 Completed [facility] of 00:00:00 [facility] HEPATITIS A 2008-09-27 Completed University of 00:00:00 [facility] HPV 2008-09-27 Completed [facility] of 00:00:00 [facility] HEPATITIS A 2008-09-27 Completed [facility] of 00:00:00 [facility] HPV 2008-09-27 Completed [facility] of 00:00:00 [facility] HEPATITIS A 2008-09-27 Completed [facility] of 00:00:00 [facility] HPV 2008-09-27 Completed University of 00:00:00 [facility] HEPATITIS A 2008-09-27 Completed University of 00:00:00 [facility] HPV 2008-09-27 Completed [facility] of 00:00:00 [facility] HEPATITIS A 2008-09-27 Completed [facility] of 00:00:00 [facility] HPV 2008-09-27 Completed [facility] of 00:00:00 [facility] HEPATITIS A 2008-09-27 Completed [facility] of 00:00:00 [facility] HPV 2008-09-27 Completed [facility] of 00:00:00 [facility] HEPATITIS A 2008-09-27 Completed [facility] of 00:00:00 [facility] HPV 2008-09-27 Completed [facility] of 00:00:00 [facility] HEPATITIS A 2008-09-27 Completed [facility] of 00:00:00 [facility] HPV 2008-09-27 Completed University of [...] Branch HPV 2008-03-06 Completed University of 00:00:00 [facility] HEPATITIS A 2008-03-06 Completed University [...] A 2008-03-06 Completed [facility] of 00:00:00 [facility] HPV 2008-03-06 Completed [facility] of 00:00:00 [facility] HEPATITIS A 2008-03-06 Completed [facility] of 00:00:00 [facility] HPV 2008-03-06 Completed [facility] of 00:00:00 [facility] HEPATITIS A 2008-03-06 Completed [facility] of 00:00:00 [facility] HPV 2008-03-06 Completed [facility] of 00:00:00 [facility] HEPATITIS A 2008-03-06 Completed [facility] of 00:00:00 [facility] HPV 2008-03-06 Completed [facility] of 00:00:00 [facility] HEPATITIS A 2008-03-06 Completed [facility] of 00:00:00 [facility] HPV 2008-03-06 Completed [facility] of 00:00:00 [facility] Meningococcal 2007-12-29 Completed [facility] Polysaccharide 00:00:00 [facility] (groups A, C, Y and Branc h W-135) conjugate vaccine (MCV4P) TDAP 2007-12-29 Completed [facility] of 00:00:00 [facility] Meningococcal 2007-12-29 Completed [facility] Polysaccharide 00:00:00 [facility] (groups A, C, Y and Branc h W-135) conjugate vaccine (MCV4P) TDAP 2007-12-29 Completed [facility] of 00:00:00 [facility] Meningococcal 2007-12-29 Completed [facility] Polysaccharide 00:00:00 [facility] (groups A, C, Y and Branc h W-135) conjugate vaccine (MCV4P) TDAP 2007-12-29 Completed University of 00:00:00 [facility] Meningococcal 2007-12-29 Completed [facility] Polysaccharide 00:00:00 [place] [facility] (groups A, C, Y and Branc h W-135) conjugate vaccine (MCV4P) TDAP 2007-12-29 Completed [facility] of 00:00:00 [facility] Meningococcal 2007-12-29 Completed [facility] Polysaccharide 00:00:00 [place] [facility] (groups A, C, Y and Branc h W-135) conjugate vaccine (MCV4P) TDAP 2007-12-29 Completed [facility] of 00:00:00 [facility] Meningococcal 2007-12-29 Completed [facility] Polysaccharide 00:00:00 [place] [facility] (groups A, C, Y and Branc h W-135) conjugate vaccine (MCV4P) TDAP 2007-12-29 Completed [facility] of 00:00:00 [facility] Meningococcal 2007-12-29 Completed [facility] Polysaccharide 00:00:00 [place] [facility] (groups A, C, Y and Branc h W-135) conjugate vaccine (MCV4P) TDAP 2007-12-29 Completed [facility] of 00:00:00 [facility] Meningococcal 2007-12-29 Completed [facility] Polysaccharide 00:00:00 [place] [facility] (groups A, C, Y and Branc h W-135) conjugate vaccine (MCV4P) TDAP 2007-12-29 Completed [facility] of 00:00:00 [facility] Meningococcal 2007-12-29 Completed [facility] Polysaccharide 00:00:00 [place] [facility] (groups A, C, Y and Branc h W-135) conjugate vaccine (MCV4P) TDAP 2007-12-29 Completed [facility] of 00:00:00 [facility] Meningococcal 2007-12-29 Completed [facility] Polysaccharide 00:00:00 [place] [facility] (groups A, C, Y and Branc h W-135) conjugate vaccine (MCV4P) TDAP 2007-12-29 Completed [facility] 00:00:00 [facility] Meningococcal 2007-12-29 Completed [facility] Polysaccharide 00:00:00 [place] [facility] (groups A, C, Y and Branc h W-135) conjugate vaccine (MCV4P) TDAP 2007-12-29 Completed [facility] 00:00:00 [facility] Meningococcal 2007-12-29 Completed [facility] Polysaccharide 00:00:00 [place] [facility] (groups A, C, Y and Branc h W-135) conjugate vaccine (MCV4P) TDAP 2007-12-29 Completed [facility] 00:00:00 [facility] Meningococcal 2007-12-29 Completed [facility] Polysaccharide 00:00:00 [place] [facility] (groups A, C, Y and Branc h W-135) conjugate vaccine (MCV4P) TDAP 2007-12-29 Completed [facility] 00:00:00 [facility] Meningococcal 2007-12-29 Completed [facility] Polysaccharide 00:00:00 [place] [facility] (groups A, C, Y and Branc h W-135) conjugate vaccine (MCV4P) TDAP 2007-12-29 Completed [facility] 00:00:00 [facility] Meningococcal 2007-12-29 Completed [facility] Polysaccharide 00:00:00 [place] [facility] (groups A, C, Y and Branc h W-135) conjugate vaccine (MCV4P) TDAP 2007-12-29 Completed [facility] 00:00:00 [facility] Meningococcal 2007-12-29 Completed [facility] Polysaccharide 00:00:00 [place] [facility] (groups A, C, Y and Branc h W-135) conjugate vaccine (MCV4P) TDAP 2007-12-29 Completed [facility] 00:00:00 [facility] Meningococcal 2007-12-29 Completed [facility] Polysaccharide 00:00:00 [place] [facility] (groups A, C, Y and Branc h W-135) conjugate vaccine (MCV4P) TDAP 2007-12-29 Completed [facility] 00:00:00 [facility] Meningococcal 2007-12-29 Completed [facility] Polysaccharide 00:00:00 [place] [facility] (groups A, C, Y and Branc h W-135) conjugate vaccine (MCV4P) TDAP 2007-12-29 Completed [facility] 00:00:00 [facility] Meningococcal 2007-12-29 Completed [facility] Polysaccharide 00:00:00 [place] [facility] (groups A, C, Y and Branc h W-135) conjugate vaccine (MCV4P) TDAP 2007-12-29 Completed [facility] 00:00:00 [facility] Meningococcal 2007-12-29 Completed [facility] Polysaccharide 00:00:00 [place] [facility] (groups A, C, Y and Branc h W-135) conjugate vaccine (MCV4P) TDAP 2007-12-29 Completed [facility] 00:00:00 [facility] Meningococcal 2007-12-29 Completed [facility] Polysaccharide 00:00:00 [place] [facility] (groups A, C, Y and Branc h W-135) conjugate vaccine (MCV4P) TDAP 2007-12-29 Completed [facility] 00:00:00 [facility] Meningococcal 2007-12-29 Completed [facility] Polysaccharide 00:00:00 [place] [facility] (groups A, C, Y and Branc h W-135) conjugate vaccine (MCV4P) TDAP 2007-12-29 Completed [facility] 00:00:00 [facility] Meningococcal 2007-12-29 Completed [facility] Polysaccharide 00:00:00 [place] [facility] (groups A, C, Y and Branc h W-135) conjugate vaccine (MCV4P) TDAP 2007-12-29 Completed [facility] 00:00:00 [facility] Meningococcal 2007-12-29 Completed [facility] Polysaccharide 00:00:00 [place] [facility] (groups A, C, Y and Branc h W-135) conjugate vaccine (MCV4P) TDAP 2007-12-29 Completed [facility] 00:00:00 [facility] Meningococcal 2007-12-29 Completed [facility] Polysaccharide 00:00:00 [place] [facility] (groups A, C, Y and Branc h W-135) conjugate vaccine (MCV4P) TDAP 2007-12-29 Completed [facility] 00:00:00 [facility] Meningococcal 2007-12-29 Completed [facility] Polysaccharide 00:00:00 [place] [facility] (groups A, C, Y and Branc h W-135) conjugate vaccine (MCV4P) TDAP 2007-12-29 Completed [facility] 00:00:00 [facility] Meningococcal 2007-12-29 Completed [facility] Polysaccharide 00:00:00 [place] [facility] (groups A, C, Y and Branc h W-135) conjugate vaccine (MCV4P) TDAP 2007-12-29 Completed [facility] 00:00:00 [facility] Meningococcal 2007-12-29 Completed [facility] Polysaccharide 00:00:00 [place] [facility] (groups A, C, Y and Branc h W-135) conjugate vaccine (MCV4P) TDAP 2007-12-29 Completed [facility] 00:00:00 [facility] Meningococcal 2007-12-29 Completed [facility] Polysaccharide 00:00:00 [place] [facility] (groups A, C, Y and Branc h W-135) conjugate vaccine (MCV4P) TDAP 2007-12-29 Completed [facility] 00:00:00 [facility] DTaP, Unspecified 1998-01-03 Completed Univers ity of Formulation 00:00:00 [facility] Hep B, Adol or Pedi 1998-01-03 Completed Unive rsity of Dosage 00:00:00 [facility] Poliovirus, Live, 1998-01-03 Completed Univers ity of Oral, Trivalent 00:00:00 [facility] DTaP, Unspecified 1998-01-03 Completed Univers ity of Formulation 00:00:00 [facility] Hep B, Adol or Pedi 1998-01-03 Completed Unive rsity of Dosage 00:00:00 [facility] Poliovirus, Live, 1998-01-03 Completed Univers ity of Oral, Trivalent 00:00:00 [facility] DTaP, Unspecified 1998-01-03 Completed Univers ity of Formulation 00:00:00 [facility] Hep B, Adol or Pedi 1998-01-03 Completed Unive rsity of Dosage 00:00:00 [facility] Poliovirus, Live, 1998-01-03 Completed Univers ity of Oral, Trivalent 00:00:00 [facility] DTaP, Unspecified 1998-01-03 Completed Univers ity of Formulation 00:00:00 [facility] Hep B, Adol or Pedi 1998-01-03 Completed Unive rsity of Dosage 00:00:00 [facility] Poliovirus, Live, 1998-01-03 Completed Univers ity of Oral, Trivalent 00:00:00 [facility] DTaP, Unspecified 1998-01-03 Completed Univers ity of Formulation 00:00:00 [facility] Hep B, Adol or Pedi 1998-01-03 Completed Unive rsity of Dosage 00:00:00 [facility] Poliovirus, Live, 1998-01-03 Completed Univers ity of Oral, Trivalent 00:00:00 [facility] DTaP, Unspecified 1998-01-03 Completed Univers ity of Formulation 00:00:00 [facility] Hep B, Adol or Pedi 1998-01-03 Completed Unive rsity of Dosage 00:00:00 [facility] Poliovirus, Live, 1998-01-03 Completed Univers ity of Oral, Trivalent 00:00:00 [facility] DTaP, Unspecified 1998-01-03 Completed Univers ity of Formulation 00:00:00 [facility] Hep B, Adol or Pedi 1998-01-03 Completed Unive rsity of Dosage 00:00:00 [facility] Poliovirus, Live, 1998-01-03 Completed Univers ity of Oral, Trivalent 00:00:00 [facility] DTaP, Unspecified 1998-01-03 Completed Univers ity of Formulation 00:00:00 [facility] Hep B, Adol or Pedi 1998-01-03 Completed Unive rsity of Dosage 00:00:00 [facility] Poliovirus, Live, 1998-01-03 Completed [facility] Oral, Trivalent 00:00:00 [facility] DTaP, Unspecified 1998-01-03 Completed Univers ity of Formulation 00:00:00 [facility] Hep B, Adol or Pedi 1998-01-03 Completed Unive rsity of Dosage 00:00:00 [facility] Poliovirus, Live, 1998-01-03 Completed Univers ity of Oral, Trivalent 00:00:00 [facility] DTaP, Unspecified 1998-01-03 Completed Univers ity of Formulation 00:00:00 [facility] Hep B, Adol or Pedi 1998-01-03 Completed Unive rsity of Dosage 00:00:00 [facility] Poliovirus, Live, 1998-01-03 Completed Univers ity of Oral, Trivalent 00:00:00 [facility] DTaP, Unspecified 1998-01-03 Completed Univers ity of Formulation 00:00:00 [facility] Hep B, Adol or Pedi 1998-01-03 Completed Unive rsity of Dosage 00:00:00 [facility] Poliovirus, Live, 1998-01-03 Completed Univers ity of Oral, Trivalent 00:00:00 [facility] DTaP, Unspecified 1998-01-03 Completed Univers ity of Formulation 00:00:00 [facility] Hep B, Adol or Pedi 1998-01-03 Completed Unive rsity of Dosage 00:00:00 [facility] Poliovirus, Live, 1998-01-03 Completed Univers ity of Oral, Trivalent 00:00:00 [facility] DTaP, Unspecified 1998-01-03 Completed [facility] ity of Formulation 00:00:00 [facility] Hep B, Adol or Pedi 1998-01-03 Completed Unive rsity of Dosage 00:00:00 [facility] Poliovirus, Live, 1998-01-03 Completed Univers ity of Oral, Trivalent 00:00:00 [facility] DTaP, Unspecified 1998-01-03 Completed Univers ity of Formulation 00:00:00 [facility] Hep B, Adol or Pedi 1998-01-03 Completed Unive rsity of Dosage 00:00:00 [facility] Poliovirus, Live, 1998-01-03 Completed Univers ity of Oral, Trivalent 00:00:00 [facility] DTaP, Unspecified 1998-01-03 Completed Univers ity of Formulation 00:00:00 [facility] Hep B, Adol or Pedi 1998-01-03 Completed Unive rsity of Dosage 00:00:00 [facility] Poliovirus, Live, 1998-01-03 Completed Univers ity of Oral, Trivalent 00:00:00 [facility] DTaP, Unspecified 1998-01-03 Completed Univers ity of Formulation 00:00:00 [facility] Hep B, Adol or Pedi 1998-01-03 Completed Unive rsity of Dosage 00:00:00 [facility] Poliovirus, Live, 1998-01-03 Completed Univers [facility]y of Oral, Trivalent 00:00:00 [facility] DTaP, Unspecified 1998-01-03 Completed Univers [facility]y of Formulation 00:00:00 [facility] Hep B, Adol or Pedi 1998-01-03 Completed Unive rsity of Dosage 00:00:00 [facility] Poliovirus, Live, 1998-01-03 Completed Univers [facility]y of Oral, Trivalent 00:00:00 [facility] DTaP, Unspecified 1998-01-03 Completed Univers ity of Formulation 00:00:00 [facility] Hep B, Adol or Pedi 1998-01-03 Completed Unive rsity of Dosage 00:00:00 [facility] Poliovirus, Live, 1998-01-03 Completed Univers ity of Oral, Trivalent 00:00:00 [facility] DTaP, Unspecified 1998-01-03 Completed [facility] of Formulation 00:00:00 [facility] Hep B, Adol or Pedi 1998-01-03 Completed [facility]ive rsity [facility] Dosage 00:00:00 [facility] [facility] Live, 1998-01-03 Completed [facility] Oral, Trivalent 00:00:00 [facility] DTaP, Unspecified 1998-01-03 Completed [facility] Formulation 00:00:00 [facility] Hep B, Adol or Pedi 1998-01-03 Completed [facility]ive rs[facility] of Dosage 00:00:00 [facility] Poliovirus, Live, 1998-01-03 Completed [facility] Oral, Trivalent 00:00:00 [facility] DTaP, Unspecified 1998-01-03 Completed [facility] Formulation 00:00:00 [facility] Hep B, Adol or Pedi 1998-01-03 Completed [facility] of Dosage 00:00:00 [facility] Poliovirus, Live, 1998-01-03 Completed [facility] Oral, Trivalent 00:00:00 [facility] DTaP, Unspecified 1998-01-03 Completed [facility] Formulation 00:00:00 [facility] Hep B, Adol or Pedi 1998-01-03 Completed [facility] rs[facility] of Dosage 00:00:00 [facility] Poliovirus, Live, 1998-01-03 Completed [facility] Oral, Trivalent 00:00:00 [facility] DTaP, Unspecified 1998-01-03 Completed [facility] Formulation 00:00:00 [facility] Hep B, Adol or Pedi 1998-01-03 Completed [facility] rs[facility] of Dosage 00:00:00 [facility] Poliovirus, Live, 1998-01-03 Completed [facility] Oral, Trivalent 00:00:00 [facility] DTaP, Unspecified 1998-01-03 Completed [facility] Formulation 00:00:00 [facility] Hep B, Adol or Pedi 1998-01-03 Completed [facility] Dosage 00:00:00 [facility] Poliovirus, Live, 1998-01-03 Completed [facility] Oral, Trivalent 00:00:00 [facility] DTaP, Unspecified 1998-01-03 Completed [facility] Formulation 00:00:00 [facility] Hep B, Adol or Pedi 1998-01-03 Completed [facility] Dosage 00:00:00 [facility] Poliovirus, Live, 1998-01-03 Completed [facility] Oral, Trivalent 00:00:00 [facility] DTaP, Unspecified 1998-01-03 Completed [facility] Formulation 00:00:00 [facility] Hep B, Adol or Pedi 1998-01-03 Completed [facility] Dosage 00:00:00 [facility] Poliovirus, Live, 1998-01-03 Completed [facility] Oral, Trivalent 00:00:00 [facility] DTaP, Unspecified 1998-01-03 Completed [facility] Formulation 00:00:00 [facility] Hep B, Adol or Pedi 1998-01-03 Completed [facility] of Dosage 00:00:00 [facility] Poliovirus, Live, 1998-01-03 Completed [facility] Oral, Trivalent 00:00:00 [facility] DTaP, Unspecified 1998-01-03 Completed [facility] Formulation 00:00:00 [facility] Hep B, Adol or Pedi 1998-01-03 Completed [facility] rs[facility] of Dosage 00:00:00 [facility] Poliovirus, Live, 1998-01-03 Completed [facility] Oral, Trivalent 00:00:00 [facility] DTaP, Unspecified 1998-01-03 Completed [facility] Formulation 00:00:00 [facility] Hep B, Adol or Pedi 1998-01-03 Completed [facility] rs[facility] of Dosage 00:00:00 [facility] Poliovirus, Live, 1998-01-03 Completed [facility] Oral, Trivalent 00:00:00 [facility] Hep B, Unspecified 1997-03-28 Completed [facility] Formulation 00:00:00 [facility] Hep B, Adol or Pedi 1997-03-28 Completed [facility] rs[facility] of Dosage 00:00:00 [facility] MMR 1997-03-28 Completed [facility] 00:00:00 [facility] Hep B, Unspecified 1997-03-28 Completed [facility] Formulation 00:00:00 [facility] Hep B, Adol or Pedi 1997-03-28 Completed [facility] rs[facility] of Dosage 00:00:00 [facility] MMR 1997-03-28 Completed [facility] 00:00:00 [facility] Hep B, Unspecified 1997-03-28 Completed [facility]iver [facility] of Formulation 00:00:00 [facility] Hep B, Adol or Pedi 1997-03-28 Completed [facility] rs[facility] of Dosage 00:00:00 [facility] MMR 1997-03-28 Completed [facility] 00:00:00 [facility] Hep B, Unspecified 1997-03-28 Completed [facility] Formulation 00:00:00 [facility] Hep B, Adol or Pedi 1997-03-28 Completed [facility] of Dosage 00:00:00 [facility] MMR 1997-03-28 Completed [facility] 00:00:00 [facility] Hep B, Unspecified 1997-03-28 Completed [facility] of Formulation 00:00:00 [facility] Hep B, Adol or Pedi 1997-03-28 Completed [facility] rs[facility] of Dosage 00:00:00 [facility] MMR 1997-03-28 Completed [facility] 00:00:00 [facility] Hep B, Unspecified 1997-03-28 Completed [facility] of Formulation 00:00:00 [facility] Hep B, Adol or Pedi 1997-03-28 Completed [facility] of Dosage 00:00:00 [facility] MMR 1997-03-28 Completed [facility] 00:00:00 [facility] Hep B, Unspecified 1997-03-28 Completed [facility] Formulation 00:00:00 [facility] Hep B, Adol or Pedi 1997-03-28 Completed [facility] of Dosage 00:00:00 [facility] MMR 1997-03-28 Completed [facility] 00:00:00 [facility] Hep B, Unspecified 1997-03-28 Completed [facility] Formulation 00:00:00 [facility] Hep B, Adol or Pedi 1997-03-28 Completed [facility] of Dosage 00:00:00 [facility] MMR 1997-03-28 Completed [facility] 00:00:00 [facility] Hep B, Unspecified 1997-03-28 Completed [facility] Formulation 00:00:00 [facility] Hep B, Adol or Pedi 1997-03-28 Completed [facility] of Dosage 00:00:00 [facility] MMR 1997-03-28 Completed [facility] 00:00:00 [facility] Hep B, Unspecified 1997-03-28 Completed [facility] of Formulation 00:00:00 [facility] Hep B, Adol or Pedi 1997-03-28 Completed [facility] of Dosage 00:00:00 [facility] MMR 1997-03-28 Completed [facility] 00:00:00 [facility] Hep B, Unspecified 1997-03-28 Completed [facility] Formulation 00:00:00 [facility] Hep B, Adol or Pedi 1997-03-28 Completed [facility] of Dosage 00:00:00 [facility] MMR 1997-03-28 Completed [facility] 00:00:00 [facility] Hep B, Unspecified 1997-03-28 Completed [facility] of Formulation 00:00:00 [facility] Hep B, Adol or Pedi 1997-03-28 Completed [facility] rs[facility] of Dosage 00:00:00 [facility] MMR 1997-03-28 Completed [facility] 00:00:00 [facility] Hep B, Unspecified 1997-03-28 Completed [facility] of Formulation 00:00:00 [facility] Hep B, Adol or Pedi 1997-03-28 Completed [facility]ive [facility] of Dosage 00:00:00 [facility] MMR 1997-03-28 Completed [facility] 00:00:00 [facility] Hep B, Unspecified 1997-03-28 Completed [facility] of Formulation 00:00:00 [facility] Hep B, Adol or Pedi 1997-03-28 Completed [facility] of Dosage 00:00:00 [facility] MMR 1997-03-28 Completed [facility] 00:00:00 [facility] Hep B, Unspecified 1997-03-28 Completed [facility] of Formulation 00:00:00 [facility] Hep B, Adol or Pedi 1997-03-28 Completed [facility] of Dosage 00:00:00 [facility] MMR 1997-03-28 Completed [facility] 00:00:00 [facility] Hep B, Unspecified 1997-03-28 Completed [facility] of Formulation 00:00:00 [facility] Hep B, Adol or Pedi 1997-03-28 Completed [facility] of Dosage 00:00:00 [facility] MMR 1997-03-28 Completed [facility] 00:00:00 [facility] Hep B, Unspecified 1997-03-28 Completed [facility] of Formulation 00:00:00 [facility] Hep B, Adol or Pedi 1997-03-28 Completed [facility] of Dosage 00:00:00 [facility] MMR 1997-03-28 Completed [facility] 00:00:00 [facility] Hep B, Unspecified 1997-03-28 Completed [facility] of Formulation 00:00:00 [facility] Hep B, Adol or Pedi 1997-03-28 Completed [facility] of Dosage 00:00:00 [facility] MMR 1997-03-28 Completed [facility] 00:00:00 [facility] Hep B, Unspecified 1997-03-28 Completed [facility] of Formulation 00:00:00 [facility] Hep B, Adol or Pedi 1997-03-28 Completed [facility] rs[facility] of Dosage 00:00:00 [facility] MMR 1997-03-28 Completed [facility] 00:00:00 [facility] Hep B, Unspecified 1997-03-28 Completed [facility] of Formulation 00:00:00 [facility] Hep B, Adol or Pedi 1997-03-28 Completed [facility] rs[facility] of Dosage 00:00:00 [facility] MMR 1997-03-28 Completed [facility] 00:00:00 [facility] Hep B, Unspecified 1997-03-28 Completed [facility] of Formulation 00:00:00 [facility] Hep B, Adol or Pedi 1997-03-28 Completed [facility]ive rsity of Dosage 00:00:00 [facility] MMR 1997-03-28 Completed [facility] 00:00:00 [facility] Hep B, Unspecified 1997-03-28 Completed [facility] of Formulation 00:00:00 [facility] Hep B, Adol or Pedi 1997-03-28 Completed [facility]ive rs[facility] of Dosage 00:00:00 [facility] MMR 1997-03-28 Completed [facility] 00:00:00 [facility] Hep B, Unspecified 1997-03-28 Completed [facility] of Formulation 00:00:00 [facility] Hep B, Adol or Pedi 1997-03-28 Completed [facility]ive rsity of Dosage 00:00:00 [facility] MMR 1997-03-28 Completed [facility] 00:00:00 [facility] Hep B, Unspecified 1997-03-28 Completed [facility] of Formulation 00:00:00 [facility] Hep B, Adol or Pedi 1997-03-28 Completed [facility]ive rsity of Dosage 00:00:00 [facility] MMR 1997-03-28 Completed [facility] 00:00:00 [facility] Hep B, Unspecified 1997-03-28 Completed [facility] of Formulation 00:00:00 [facility] Hep B, Adol or Pedi 1997-03-28 Completed [facility] rsity of Dosage 00:00:00 [facility] MMR 1997-03-28 Completed [facility] 00:00:00 [facility] Hep B, Unspecified 1997-03-28 Completed [facility] of Formulation 00:00:00 [facility] Hep B, Adol or Pedi 1997-03-28 Completed [facility] of Dosage 00:00:00 [facility] 1997-03-28 Completed [facility] 00:00:00 [facility] Hep B, Unspecified 1997-03-28 Completed Univer [facility]ity of Formulation 00:00:00 [facility] Hep B, Adol or Pedi 1997-03-28 Completed [facility] rs[facility] of Dosage 00:00:00 [facility] 1997-03-28 Completed [facility] 00:00:00 [facility] Hep B, Unspecified 1997-03-28 Completed [facility]iver [facility] of Formulation 00:00:00 [facility] Hep B, Adol or Pedi 1997-03-28 Completed [facility] rs[facility] of Dosage 00:00:00 [facility] 1997-03-28 Completed [facility] 00:00:00 [facility] Hep B, Unspecified 1997-03-28 Completed [facility] of Formulation 00:00:00 [facility] Hep B, Adol or Pedi 1997-03-28 Completed [facility] of Dosage 00:00:00 [facility] 1997-03-28 Completed [facility] 00:00:00 [facility] Hib-HbOC 1994-05-19 Completed [facility] 00:00:00 [facility] 1994-05-19 Completed [facility] 00:00:00 [facility] Poliovirus, Live, 1994-05-19 Completed [facility] Oral, Trivalent 00:00:00 [facility] 1994-05-19 Completed [facility] 00:00:00 [facility] Hib-HbOC 1994-05-19 Completed [facility] 00:00:00 [facility] 1994-05-19 Completed [facility] 00:00:00 [facility] Poliovirus, Live, 1994-05-19 Completed [facility] Oral, Trivalent 00:00:00 [facility] 1994-05-19 Completed [facility] 00:00:00 [facility] Hib-HbOC 1994-05-19 Completed [facility] 00:00:00 [facility] 1994-05-19 Completed [facility] 00:00:00 [facility] Poliovirus, Live, 1994-05-19 Completed [facility] Oral, Trivalent 00:00:00 [facility] 1994-05-19 Completed [facility] 00:00:00 [facility] Hib-HbOC 1994-05-19 Completed [facility] 00:00:00 [facility] MMR 1994-05-19 Completed [facility] 00:00:00 [facility] Poliovirus, Live, 1994-05-19 Completed [facility] Oral, Trivalent 00:00:00 [facility] 1994-05-19 Completed [facility] 00:00:00 [facility] Hib-HbOC 1994-05-19 Completed [facility] 00:00:00 [facility] MMR 1994-05-19 Completed [facility] 00:00:00 [facility] Poliovirus, Live, 1994-05-19 Completed [facility] Oral, Trivalent 00:00:00 [facility] 1994-05-19 Completed [facility] 00:00:00 [facility] Hib-HbOC 1994-05-19 Completed [facility] 00:00:00 [facility] 1994-05-19 Completed [facility] 00:00:00 [facility] Poliovirus, Live, 1994-05-19 Completed [facility] Oral, Trivalent 00:00:00 [facility] 1994-05-19 Completed [facility] 00:00:00 [facility] Hib-HbOC 1994-05-19 Completed [facility] 00:00:00 [facility] MMR 1994-05-19 Completed [facility] 00:00:00 [facility] Poliovirus, Live, 1994-05-19 Completed [facility] Oral, Trivalent 00:00:00 [facility] 1994-05-19 Completed [facility] 00:00:00 [facility] Hib-HbOC 1994-05-19 Completed [facility] 00:00:00 [facility] MMR 1994-05-19 Completed [facility] 00:00:00 [facility] Poliovirus, Live, 1994-05-19 Completed [facility] Oral, Trivalent 00:00:00 [facility] 1994-05-19 Completed [facility] 00:00:00 [facility] Hib-HbOC 1994-05-19 Completed [facility] 00:00:00 [facility] MMR 1994-05-19 Completed [facility] 00:00:00 [facility] Poliovirus, Live, 1994-05-19 Completed [facility] Oral, Trivalent 00:00:00 [facility] 1994-05-19 Completed [facility] 00:00:00 [facility] Hib-HbOC 1994-05-19 Completed [facility] 00:00:00 [facility] MMR 1994-05-19 Completed [facility] 00:00:00 [facility] Poliovirus, Live, 1994-05-19 Completed [facility] Oral, Trivalent 00:00:00 [facility] 1994-05-19 Completed [facility] 00:00:00 [facility] Hib-HbOC 1994-05-19 Completed [facility] 00:00:00 [facility] MMR 1994-05-19 Completed [facility] 00:00:00 [facility] Poliovirus, Live, 1994-05-19 Completed [facility] Oral, Trivalent 00:00:00 [facility] 1994-05-19 Completed [facility] 00:00:00 [facility] Hib-HbOC 1994-05-19 Completed [facility] 00:00:00 [facility] MMR 1994-05-19 Completed [facility] 00:00:00 [facility] Poliovirus, Live, 1994-05-19 Completed [facility] of Oral, Trivalent 00:00:00 [facility] 1994-05-19 Completed [facility] 00:00:00 [facility] Hib-HbOC 1994-05-19 Completed [facility] 00:00:00 [facility] MMR 1994-05-19 Completed [facility] 00:00:00 [facility] Poliovirus, Live, 1994-05-19 Completed [facility] Oral, Trivalent 00:00:00 [facility] 1994-05-19 Completed [facility] 00:00:00 [facility] Hib-HbOC 1994-05-19 Completed [facility] 00:00:00 [facility] MMR 1994-05-19 Completed [facility] 00:00:00 [facility] Poliovirus, Live, 1994-05-19 Completed [facility] of Oral, Trivalent 00:00:00 [facility] 1994-05-19 Completed [facility] 00:00:00 [facility] Hib-HbOC 1994-05-19 Completed [facility] 00:00:00 [facility] MMR 1994-05-19 Completed [facility] 00:00:00 [facility] Poliovirus, Live, 1994-05-19 Completed [facility] Oral, Trivalent 00:00:00 [facility] 1994-05-19 Completed [facility] 00:00:00 [facility] Hib-HbOC 1994-05-19 Completed [facility] 00:00:00 [facility] MMR 1994-05-19 Completed [facility] 00:00:00 [facility] Poliovirus, Live, 1994-05-19 Completed [facility] Oral, Trivalent 00:00:00 [facility] 1994-05-19 Completed [facility] 00:00:00 [facility] Hib-HbOC 1994-05-19 Completed [facility] 00:00:00 [facility] MMR 1994-05-19 Completed [facility] 00:00:00 [facility] Poliovirus, Live, 1994-05-19 Completed [facility] Oral, Trivalent 00:00:00 [facility] 1994-05-19 Completed [facility] 00:00:00 [facility] Hib-HbOC 1994-05-19 Completed [facility] 00:00:00 [facility] 1994-05-19 Completed [facility] 00:00:00 [facility] Poliovirus, Live, 1994-05-19 Completed [facility] of Oral, Trivalent 00:00:00 [facility] 1994-05-19 Completed [facility] 00:00:00 [facility] Hib-HbOC 1994-05-19 Completed [facility] 00:00:00 [facility] 1994-05-19 Completed [facility] 00:00:00 [facility] Poliovirus, Live, 1994-05-19 Completed [facility] Oral, Trivalent 00:00:00 [facility] 1994-05-19 Completed [facility] 00:00:00 [facility] Hib-HbOC 1994-05-19 Completed [facility] 00:00:00 [facility] MMR 1994-05-19 Completed [facility] 00:00:00 [facility] Poliovirus, Live, 1994-05-19 Completed [facility] Oral, Trivalent 00:00:00 [facility] 1994-05-19 Completed [facility] 00:00:00 [facility] Hib-HbOC 1994-05-19 Completed [facility] 00:00:00 [facility] 1994-05-19 Completed [facility] 00:00:00 [facility] Poliovirus, Live, 1994-05-19 Completed [facility] of Oral, Trivalent 00:00:00 [facility] 1994-05-19 Completed [facility] 00:00:00 [facility] Hib-HbOC 1994-05-19 Completed [facility] 00:00:00 [facility] MMR 1994-05-19 Completed [facility] 00:00:00 [facility] Poliovirus, Live, 1994-05-19 Completed [facility] Oral, Trivalent 00:00:00 [facility] 1994-05-19 Completed [facility] 00:00:00 [facility] Hib-HbOC 1994-05-19 Completed [facility] 00:00:00 [facility] MMR 1994-05-19 Completed [facility] 00:00:00 [facility] Poliovirus, Live, 1994-05-19 Completed [facility] Oral, Trivalent 00:00:00 [facility] 1994-05-19 Completed [facility] 00:00:00 [facility] Hib-HbOC 1994-05-19 Completed [facility] 00:00:00 [facility] MMR 1994-05-19 Completed [facility] 00:00:00 [facility] Poliovirus, Live, 1994-05-19 Completed [facility] Oral, Trivalent 00:00:00 [facility] 1994-05-19 Completed [facility] 00:00:00 [facility] Hib-HbOC 1994-05-19 Completed [facility] 00:00:00 [facility] MMR 1994-05-19 Completed [facility] 00:00:00 [facility] Poliovirus, Live, 1994-05-19 Completed [facility] of Oral, Trivalent 00:00:00 [facility] 1994-05-19 Completed [facility] 00:00:00 [facility] Hib-HbOC 1994-05-19 Completed [facility] 00:00:00 [facility] MMR 1994-05-19 Completed [facility] 00:00:00 [facility] Poliovirus, Live, 1994-05-19 Completed [facility] of Oral, Trivalent 00:00:00 [facility] 1994-05-19 Completed [facility] 00:00:00 [facility] Hib-HbOC 1994-05-19 Completed [facility] 00:00:00 [facility] MMR 1994-05-19 Completed [facility] 00:00:00 [facility] Poliovirus, Live, 1994-05-19 Completed [facility] Oral, Trivalent 00:00:00 [facility] 1994-05-19 Completed [facility] 00:00:00 [facility] Hib-HbOC 1994-05-19 Completed [facility] 00:00:00 [facility] MMR 1994-05-19 Completed [facility] 00:00:00 [facility] Poliovirus, Live, 1994-05-19 Completed [facility] of Oral, Trivalent 00:00:00 [facility] DTP 1994-05-19 Completed [facility] 00:00:00 [facility] Hib-HbOC 1994-05-19 Completed [facility] 00:00:00 [facility] MMR 1994-05-19 Completed [facility] 00:00:00 [facility] Poliovirus, Live, 1994-05-19 Completed [facility] Oral, Trivalent 00:00:00 [facility] Heophilus 1994-05-09 Completed [facility] of Influenza B 00:00:[address] [facility] 1994-05-09 Completed [facility] B [facility] Influ[facility] B [facility] B [facility] B [facility] B [facility] Influ[facility] B [facility] Influ[facility] B [facility] B [facility] Influenza B 00:00:[address] [facility] 1994-05-09 Completed [facility] of Influenza B 00:00:[address] [facility] 1994-05-09 Completed [facility] of Influenza B 00:00:[address] [facility] 1994-05-09 Completed [facility] of Influenza B 00:00:[address] [facility] 1994-05-09 Completed [facility] of Influenza B 00:00:[address] [facility] 1994-05-09 Completed [facility] of Influenza B 00:00:[address] [facility] 1994-05-09 Completed [facility] of Influenza B 00:00:[address] [facility] 1994-05-09 Completed [facility] of Influenza B 00:00:[address] [facility] 1994-05-09 Completed [facility] of Influenza B 00:00:[address] [facility] 1994-05-09 Completed [facility] of Influenza B 00:00:[address] [facility] 1994-05-09 Completed [facility] of Influenza B 00:00:[address] [facility] 1994-05-09 Completed [facility] of Influenza B 00:00:[address] [facility] 1994-05-09 Completed [facility] Influenza B 00:00:[address] [facility] 1994-05-09 Completed [facility] Influenza B 00:00:00 [facility] Hep B, Unspecified 1993-04-29 Completed Univer sity of Formulation 00:00:00 [facility] Hep B, Adol or Pedi 1993-04-29 Completed Unive rsity of Dosage 00:00:00 [facility] Hep B, Unspecified 1993-04-29 Completed [facility]iver [facility] of Formulation 00:00:00 [facility] Hep B, Adol or Pedi 1993-04-29 Completed [facility]ive rs[facility] of Dosage 00:00:00 [facility] Hep B, Unspecified 1993-04-29 Completed [facility]iver [facility] of Formulation 00:00:00 [facility] Hep B, Adol or Pedi 1993-04-29 Completed [facility]ive rsity of Dosage 00:00:00 [facility] Hep B, Unspecified 1993-04-29 Completed Univer sity of Formulation 00:00:00 [facility] Hep B, Adol or Pedi 1993-04-29 Completed Unive rsity of Dosage 00:00:00 [facility] Hep B, Unspecified 1993-04-29 Completed [...] 1993-04-29 Completed Unive rs[facility] of Dosage 00:00:00 [facility] Hep B, Unspecified 1993-04-29 Completed Univer [facility]ity of Formulation 00:00:00 [facility] Hep B, Adol or Pedi 1993-04-29 Completed [facility]ive rsity of Dosage 00:00:00 [facility] Hep B, Unspecified 1993-04-29 Completed Univer sity of Formulation 00:00:00 [facility] Hep B, Adol or Pedi 1993-04-29 Completed Unive rsity of Dosage 00:00:00 [facility] DTP 1992 Completed [facility] 00:00:00 [facility] Heamophilus 1992 Completed [facility] of Influenza B 00:00:00 [facility] Hib-HbOC 1992 Completed [facility] 00:00:00 [facility] DTP 1992 Completed [facility] 00:00:00 [facility] Heamophilus 1992 Completed [facility] of Influenza B 00:00:00 [facility] Hib-HbOC 1992 Completed [facility] 00:00:00 [facility] DTP 1992 Completed [facility] 00:00:00 [facility] Heamophilus 1992 Completed [facility] of Influenza B 00:00:00 [facility] Hib-HbOC 1992 Completed [facility] 00:00:00 [facility] DTP 1992 Completed [facility] 00:00:00 [facility] Heamophilus 1992 Completed [facility] of Influenza B 00:00:00 [facility] Hib-HbOC 1992 Completed [facility] 00:00:00 [facility] DTP 1992 Completed [facility] 00:00:00 [facility] Heamophilus 1992 Completed [facility] of Influenza B 00:00:00 [facility] Hib-HbOC 1992 Completed University of 00:00:00 [facility] DTP 1992 Completed [facility] of 00:00:00 [facility] Heamophilus 1992 Completed [facility] of Influenza B 00:00:00 [facility] Hib-HbOC 1992 Completed [facility] of 00:00:00 [facility] DTP 1992 Completed [facility] of 00:00:00 [facility] Heamophilus 1992 Completed [facility] of Influenza B 00:00:00 [facility] Hib-HbOC 1992 Completed University of 00:00:00 [facility] DTP 1992 Completed [facility] 00:00:00 [facility] Heamophilus 1992 Completed [facility] of Influenza B 00:00:00 [facility] Hib-HbOC 1992 Completed University of 00:00:00 [facility] DTP 1992 Completed [facility] of 00:00:00 [facility] Heamophilus 1992 Completed [facility] of Influenza B 00:00:00 [facility] Hib-HbOC 1992 Completed [facility] of 00:00:00 [facility] DTP 1992 Completed [facility] of 00:00:00 [facility] Heamophilus 1992 Completed [facility] of Influenza B 00:00:00 [facility] Hib-HbOC 1992 Completed [facility] of 00:00:00 [facility] DTP 1992 Completed [facility] of 00:00:00 [facility] Heamophilus 1992 Completed [facility] of Influenza B 00:00:00 [facility] Hib-HbOC 1992 Completed University of 00:00:00 [facility] DTP 1992 Completed [facility] of 00:00:00 [facility] Heamophilus 1992 Completed [facility] of Influenza B 00:00:00 [facility] Hib-HbOC 1992 Completed University of 00:00:00 [facility] DTP 1992 Completed [facility] of 00:00:00 [facility] Heamophilus 1992 Completed [facility] of Influenza B 00:00:00 [facility] Hib-HbOC 1992 Completed [facility] of 00:00:00 [facility] DTP 1992 Completed [facility] of 00:00:00 [facility] Heamophilus 1992 Completed [facility] of Influenza B 00:00:00 [facility] Hib-HbOC 1992 Completed University of 00:00:00 [facility] DTP 1992 Completed University of 00:00:00 [facility] Heamophilus 1992 Completed [facility] of Influenza B 00:00:00 [facility] Hib-HbOC 1992 Completed University of 00:00:00 [facility] DTP 1992 Completed [facility] of 00:00:00 [facility] Heamophilus 1992 Completed [facility] of Influenza B 00:00:00 [facility] Hib-HbOC 1992 Completed University of 00:00:00 [facility] DTP 1992 Completed [facility] of 00:00:00 [facility] Heamophilus 1992 Completed [facility] of Influenza B 00:00:00 [facility] Hib-HbOC 1992 Completed [facility] of 00:00:00 [facility] DTP 1992 Completed [facility] of 00:00:00 [facility] Heamophilus 1992 Completed [facility] of Influenza B 00:00:00 [facility] Hib-HbOC 1992 Completed University of 00:00:00 [facility] DTP 1992 Completed [facility] of 00:00:00 [facility] Heamophilus 1992 Completed [facility] of Influenza B 00:00:00 [facility] Hib-HbOC 1992 Completed University of 00:00:00 [facility] DTP 1992 Completed [facility] of 00:00:00 [facility] Heamophilus 1992 Completed [facility] of Influenza B 00:00:00 [facility] Hib-HbOC 1992 Completed University of 00:00:00 [facility] DTP 1992 Completed University of 00:00:00 [facility] Heamophilus 1992 Completed [facility] of Influenza B 00:00:00 [facility] Hib-HbOC 1992 Completed University of 00:00:00 [facility] DTP 1992 Completed [facility] of 00:00:00 [facility] Heamophilus 1992 Completed [facility] of Influenza B 00:00:00 [facility] Hib-HbOC 1992 Completed University of 00:00:00 [facility] DTP 1992 Completed [facility] of 00:00:00 [facility] Heamophilus 1992 Completed [facility] of Influenza B 00:00:00 [facility] Hib-HbOC 1992 Completed [facility] of 00:00:00 [facility] DTP 1992 Completed [facility] of 00:00:00 [facility] Heamophilus 1992 Completed [facility] of Influenza B 00:00:00 [facility] Hib-HbOC 1992 Completed University of 00:00:00 [facility] DTP 1992 Completed University of 00:00:00 [facility] Heamophilus 1992 Completed [facility] of Influenza B 00:00:00 [facility] Hib-HbOC 1992 Completed University of 00:00:00 [facility] DTP 1992 Completed [facility] of 00:00:00 [facility] Heamophilus 1992 Completed [facility] of Influenza B 00:00:00 [facility] Hib-HbOC 1992 Completed University of 00:00:00 [facility] DTP 1992 Completed University of 00:00:00 [facility] Heamophilus 1992 Completed [facility] of Influenza B 00:00:00 [facility] Hib-HbOC 1992 Completed [facility] of 00:00:00 [facility] DTP 1992 Completed [facility] of 00:00:00 [facility] Heamophilus 1992 Completed [facility] of Influenza B 00:00:00 [facility] Hib-HbOC 1992 Completed [facility] of 00:00:00 [facility] DTP 1992 Completed [facility] of 00:00:00 [facility] Heamophilus 1992 Completed [facility] of Influenza B 00:00:00 [facility] Hib-HbOC 1992 Completed [facility] of 00:00:00 [facility] DTP 1992 Completed [facility] of 00:00:00 [facility] Heamophilus 1992 Completed [facility] of Influenza B 00:00:00 [facility] Hib-HbOC 1992 Completed [facility] of 00:00:00 [facility] Poliovirus, Live, 1992 Completed Univers ity of Oral, Trivalent 00:00:00 [facility] DT 1992 Completed University of 00:00:00 [facility] Heamophilus 1992 Completed [facility] of Influenza B 00:00:00 [facility] Hib-HbO 1992 Completed [facility] of 00:00:00 [facility] Poliovirus, Live, 1992 Completed Univers ity of Oral, Trivalent 00:00:00 [facility] 1992 Completed [facility] B 00:00:00 [facility] Hib-HbO 1992 Completed [facility] of 00:00:00 [facility] Poliovirus, Live, 1992 Completed Univers ity of Oral, Trivalent 00:00:00 [facility] 1992 Completed [facility] B [facility]:00:00 [facility] Hib-HbO 1992 Completed [facility] of 00:00:00 [facility] Poliovirus, Live, 1992 Completed Univers ity of Oral, Trivalent 00:00:00 [facility] 1992 Completed [facility] of 00:00:00 [facility] Heamophilus 1992 Completed [facility] of Influenza B 00:00:00 [facility] Hib-HbO 1992 Completed [facility] of 00:00:00 [facility] Poliovirus, Live, 1992 Completed Univers ity of Oral, Trivalent 00:00:00 [facility] 1992 Completed [facility] of 00:00:00 [facility] Heamophilus 1992 Completed [facility] of Influenza B 00:00:00 [facility] Hib-HbOC 1992 Completed [facility] of 00:00:00 [facility] Poliovirus, Live, 1992 Completed Univers ity of Oral, Trivalent 00:00:00 [facility] 1992 Completed [facility] 00:00:00 [facility] Heamophilus 1992 Completed [facility] of Influenza B 00:00:00 [facility] Hib-HbOC 1992 Completed [facility] of 00:00:00 [facility] Poliovirus, Live, 1992 Completed Univers ity of Oral, Trivalent 00:00:00 [facility] 1992 Completed [facility] of 00:00:00 [facility] Heamophilus 1992 Completed [facility] of Influenza B 00:00:00 [facility] Hib-HbOC 1992 Completed [facility] of 00:00:00 [facility] Poliovirus, Live, 1992 Completed Univers ity of Oral, Trivalent 00:00:00 [facility] 1992 Completed [facility] of 00:00:00 [facility] Heamophilus 1992 Completed [facility] of Influenza B 00:00:00 [facility] Hib-HbOC 1992 Completed [facility] of 00:00:00 [facility] Poliovirus, Live, 1992 Completed Univers ity of Oral, Trivalent 00:00:00 [facility] 1992 Completed [facility] 00:00:00 [facility] Heamophilus 1992 Completed [facility] of Influenza B 00:00:00 [facility] Hib-HbOC 1992 Completed [facility] of 00:00:00 [facility] Poliovirus, Live, 1992 Completed [facility] ity of Oral, Trivalent 00:00:00 [facility] 1992 Completed [facility] 00:00:00 [facility] Heamophilus 1992 Completed [facility] Influenza B 00:00:00 [facility] Hib-HbOC 1992 Completed [facility] of 00:00:00 [facility] Poliovirus, Live, 1992 Completed Univers ity of Oral, Trivalent 00:00:00 [facility] 1992 Completed [facility] 00:00:00 [facility] Heamophilus 1992 Completed [facility] Influenza B 00:00:00 [facility] Hib-HbOC 1992 Completed [facility] of 00:00:00 [facility] Poliovirus, Live, 1992 Completed [facility] ity of Oral, Trivalent 00:00:00 [facility] 1992 Completed [facility] 00:00:00 [facility] Heamophilus 1992 Completed [facility] of Influenza B 00:00:00 [facility] Hib-HbOC 1992 Completed [facility] 00:00:00 [facility] Poliovirus, Live, 1992 Completed [facility]y of Oral, Trivalent 00:00:00 [facility] 1992 Completed [facility] Influ[facility] B 00:00:00 [facility] Hib-HbOC 1992 Completed [facility] 00:00:00 [facility] Poliovirus, Live, 1992 Completed [facility]y of Oral, Trivalent 00:00:00 [facility] 1992 Completed [facility] Influenza B 00:00:00 [facility] Hib-HbO 1992 Completed [facility] of 00:00:00 [facility] Poliovirus, Live, 1992 Completed [facility] ity of Oral, Trivalent 00:00:00 [facility] 1992 Completed [facility] 00:00:00 [facility] Heamophilus 1992 Completed [facility] of Influenza B 00:00:00 [facility] Hib-HbOC 1992 Completed [facility] of 00:00:00 [facility] Poliovirus, Live, 1992 Completed [facility]y of Oral, Trivalent 00:00:00 [facility] 1992 Completed [facility] 00:00:00 [facility] Heamophilus 1992 Completed [facility] of Influenza B 00:00:00 [facility] Hib-HbOC 1992 Completed [facility] of 00:00:00 [facility] Poliovirus, Live, 1992 Completed [facility] ity of Oral, Trivalent 00:00:00 [facility] 1992 Completed [facility] 00:00:00 [facility] Heamophilus 1992 Completed [facility] of Influenza B 00:00:00 [facility] Hib-HbOC 1992 Completed [facility] of 00:00:00 [facility] Poliovirus, Live, 1992 Completed [facility]y of Oral, Trivalent 00:00:00 [facility] 1992 Completed [facility] 00:00:00 [facility] Heamophilus 1992 Completed [facility] of Influenza B 00:00:00 [facility] Hib-HbOC 1992 Completed [facility] 00:00:00 [facility] Poliovirus, Live, 1992 Completed [facility]y of Oral, Trivalent 00:00:00 [facility] 1992 Completed [facility] Influenza B 00:00:00 [facility] Hib-HbOC 1992 Completed [facility] 00:00:00 [facility] Poliovirus, Live, 1992 Completed [facility]y of Oral, Trivalent 00:00:00 [facility] 1992 Completed [facility] Influ[facility] B 00:00:00 [facility] Hib-HbOC 1992 Completed [facility] 00:00:00 [facility] Poliovirus, Live, 1992 Completed [facility] ity of Oral, Trivalent 00:00:00 [facility] 1992 Completed [facility] 00:00:00 [facility] Heamophilus 1992 Completed [facility] of Influenza B 00:00:00 [facility] Hib-HbOC 1992 Completed [facility] of 00:00:00 [facility] Poliovirus, Live, 1992 Completed [facility]y of Oral, Trivalent 00:00:00 [facility] 1992 Completed [facility] 00:00:00 [facility] Heamophilus 1992 Completed [facility] of Influenza B 00:00:00 [facility] Hib-HbOC 1992 Completed [facility] of 00:00:00 [facility] Poliovirus, Live, 1992 Completed [facility]y of Oral, Trivalent 00:00:00 [facility] 1992 Completed [facility] 00:00:00 [facility] Heamophilus 1992 Completed [facility] of Influenza B 00:00:00 [facility] Hib-HbOC 1992 Completed [facility] of 00:00:00 [facility] Poliovirus, Live, 1992 Completed [facility]y of Oral, Trivalent 00:00:00 [facility] 1992 Completed [facility] 00:00:00 [facility] Heamophilus 1992 Completed [facility] of Influenza B 00:00:00 [facility] Hib-HbOC 1992 Completed [facility] of 00:00:00 [facility] Poliovirus, Live, 1992 Completed [facility]y of Oral, Trivalent 00:00:00 [facility] 1992 Completed [facility] 00:00:00 [facility] Heamophilus 1992 Completed [facility] of Influenza B 00:00:00 [facility] Hib-HbO 1992 Completed [facility] 00:00:00 [facility] Poliovirus, Live, 1992 Completed [facility]y of Oral, Trivalent 00:00:00 [facility] 1992 Completed [facility] Influenza B 00:00:00 [facility] Hib-HbOC 1992 Completed [facility] 00:00:00 [facility] Poliovirus, Live, 1992 Completed [facility]y of Oral, Trivalent 00:00:00 [facility] 1992 Completed [facility] 00:00:00 [facility] Heamophilus 1992 Completed [facility] of Influenza B 00:00:00 [facility] Hib-HbOC 1992 Completed [facility] of 00:00:00 [facility] Poliovirus, Live, 1992 Completed [facility]y of Oral, Trivalent 00:00:00 [facility] 1992 Completed [facility] 00:00:00 [facility] Heamophilus 1992 Completed [facility] of Influenza B 00:00:00 [facility] Hib-HbOC 1992 Completed [facility] of 00:00:00 [facility] Poliovirus, Live, 1992 Completed [facility]y of Oral, Trivalent 00:00:00 [facility] 1992 Completed [facility] 00:00:00 [facility] Heamophilus 1992 Completed [facility] of Influenza B 00:00:00 [facility] Hib-HbOC 1992 Completed [facility] 00:00:00 [facility] Poliovirus, Live, 1992 Completed [facility]y of Oral, Trivalent 00:00:00 [facility] 1992 Completed [facility] 00:00:00 [facility] Heamophilus 1992 Completed [facility] Influenza B 00:00:00 [facility] Hib-HbOC 1992 Completed [facility] of 00:00:00 [facility] Poliovirus, Live, 1992 Completed [facility]y of Oral, Trivalent 00:00:00 [facility] 1992 Completed [facility] 00:00:00 [facility] Heamophilus 1992 Completed [facility] of Influenza B 00:00:00 [facility] Hib-HbOC 1992 Completed [facility] of 00:00:00 [facility] Poliovirus, Live, 1992 Completed [facility]y of Oral, Trivalent 00:00:00 [facility] 1992 Completed [facility] 00:00:00 [facility] Heamophilus 1992 Completed [facility] Influenza B 00:00:00 [facility] Hib-HbOC 1992 Completed [facility] 00:00:00 [facility] Poliovirus, Live, 1992 Completed [facility] ity of Oral, Trivalent 00:00:00 [facility] DT 1992 Completed [facility] of 00:00:00 [facility] Heamophilus 1992 Completed [facility] of Influenza B 00:00:00 [facility] Hib-HbOC 1992 Completed [facility] 00:00:00 [facility] Poliovirus, Live, 1992 Completed [facility] of Oral, Trivalent 00:00:00 [facility] 1992 Completed [facility] 00:00:00 [facility] Heamophilus 1992 Completed [facility] of Influenza B 00:00:00 [facility] Hib-HbOC 1992 Completed [facility] 00:00:00 [facility] Poliovirus, Live, 1992 Completed [facility] of Oral, Trivalent 00:00:00 [facility] 1992 Completed [facility] 00:00:00 [facility] Heamophilus 1992 Completed [facility] of Influenza B 00:00:00 [facility] Hib-HbOC 1992 Completed [facility] 00:00:00 [facility] Poliovirus, Live, 1992 Completed [facility] of Oral, Trivalent 00:00:00 [facility] 1992 Completed [facility] Influenza B 00:00:00 [facility] Hib-HbOC 1992 Completed [facility] 00:00:00 [facility] Poliovirus, Live, 1992 Completed [facility] of Oral, Trivalent 00:00:00 [facility] 1992 Completed [facility] Influenza B 00:00:00 [facility] Hib-HbO 1992 Completed [facility] 00:00:00 [facility] Poliovirus, Live, 1992 Completed [facility]y of Oral, Trivalent 00:00:00 [facility] 1992 Completed [facility] 00:00:00 [facility] Heamophilus 1992 Completed [facility] of Influenza B 00:00:00 [facility] Hib-HbOC 1992 Completed [facility] 00:00:00 [facility] Poliovirus, Live, 1992 Completed [facility] of Oral, Trivalent 00:00:00 [facility] 1992 Completed [facility] 00:00:00 [facility] Heamophilus 1992 Completed [facility] Influenza B 00:00:00 [facility] Hib-HbOC 1992 Completed [facility] 00:00:00 [facility] Poliovirus, Live, 1992 Completed [facility] of Oral, Trivalent 00:00:00 [facility] 1992 Completed [facility] 00:00:00 [facility] Heamophilus 1992 Completed [facility] of Influenza B 00:00:00 [facility] Hib-HbOC 1992 Completed [facility] 00:00:00 [facility] Poliovirus, Live, 1992 Completed [facility] of Oral, Trivalent 00:00:00 [facility] 1992 Completed [facility] 00:00:00 [facility] Heamophilus 1992 Completed [facility] Influenza B 00:00:00 [facility] Hib-HbO 1992 Completed [facility] 00:00:00 [facility] Poliovirus, Live, 1992 Completed [facility] of Oral, Trivalent 00:00:00 [facility] 1992 Completed [facility] Influenza B 00:00:00 [facility] Hib-HbO 1992 Completed [facility] 00:00:00 [facility] Poliovirus, Live, 1992 Completed [facility] Oral, Trivalent 00:00:00 [facility] 1992 Completed [facility] B [facility] [facility] Com[facility] 00:00:00 [facility] Poliovirus, Live, 1992 Completed [facility] Oral, Trivalent 00:00:00 [facility] 1992 Completed [facility] 00:00:00 [facility] Heamophilus 1992 Completed [facility] of Influenza B 00:00:00 [facility] Hib-HbOC 1992 Completed [facility] 00:00:00 [facility] Poliovirus, Live, 1992 Completed [facility] Oral, Trivalent 00:00:00 [facility] 1992 Completed [facility] 00:00:00 [facility] Heamophilus 1992 Completed [facility] Influenza B 00:00:00 [facility] Hib-HbOC 1992 Completed [facility] 00:00:00 [facility] Poliovirus, Live, 1992 Completed [facility] Oral, Trivalent 00:00:00 [facility] 1992 Completed [facility] 00:00:00 [facility] Heamophilus 1992 Completed [facility] Influenza B 00:00:00 [facility] Hib-HbOC 1992 Completed [facility] 00:00:00 [facility] Poliovirus, Live, 1992 Completed [facility] Oral, Trivalent 00:00:00 [facility] 1992 Completed [facility] Influenza B 00:00:00 [facility] Hib-HbOC 1992 Completed [facility] 00:00:00 [facility] Poliovirus, Live, 1992 Completed [facility] Oral, Trivalent 00:00:00 [facility] 1992 Completed [facility] Influenza B 00:00:00 [facility] Hib-HbOC 1992 Completed [facility] 00:00:00 [facility] Poliovirus, Live, 1992 Completed [facility] Oral, Trivalent 00:00:00 [facility] 1992 Completed [facility] 00:00:00 [facility] Heamophilus 1992 Completed [facility] Influenza B 00:00:00 [facility] Hib-HbOC 1992 Completed [facility] 00:00:00 [facility] Poliovirus, Live, 1992 Completed [facility] Oral, Trivalent 00:00:00 [facility] 1992 Completed [facility] 00:00:00 [facility] Heamophilus 1992 Completed [facility] Influenza B 00:00:00 [facility] Hib-HbOC 1992 Completed [facility] 00:00:00 [facility] Poliovirus, Live, 1992 Completed [facility] Oral, Trivalent 00:00:00 [facility] 1992 Completed [facility] 00:00:00 [facility] Heamophilus 1992 Completed [facility] Influenza B 00:00:00 [facility] Hib-HbOC 1992 Completed [facility] 00:00:00 [facility] Poliovirus, Live, 1992 Completed [facility] Oral, Trivalent 00:00:00 [facility] 1992 Completed [facility] 00:00:00 [facility] Heamophilus 1992 Completed [facility] Influenza B 00:00:00 [facility] Hib-HbOC 1992 Completed [facility] 00:00:00 [facility] Poliovirus, Live, 1992 Completed [facility] Oral, Trivalent 00:00:00 [facility] 1992 [facility] Influenza B 00:00:00 [facility] Hib-HbOC 1992 Completed [facility] 00:00:00 [facility] Poliovirus, Live, 1992 Completed [facility] Oral, Trivalent 00:00:00 [facility] 1992 Completed [facility] Influenza B 00:00:00 [facility] Hib-HbOC 1992 Completed [facility] 00:00:00 [facility] Poliovirus, Live, 1992 Completed [facility] Oral, Trivalent 00:00:00 [facility] 1992 Completed [facility] 00:00:00 [facility] Heamophilus 1992 Completed [facility] Influenza B 00:00:00 [facility] Hib-HbOC 1992 Completed [facility] 00:00:00 [facility] Poliovirus, Live, 1992 Completed [facility] Oral, Trivalent 00:00:00 [facility] 1992 Completed [facility] 00:00:00 [facility] Heamophilus 1992 Completed [facility] Influenza B 00:00:00 [facility] Hib-HbOC 1992 Completed [facility] 00:00:00 [facility] Poliovirus, Live, 1992 Completed [facility] Oral, [facility] 00:[facility] 1992 Completed [facility] 00:00:00 [facility] Heamophilus 1992 Completed [facility] Influenza B 00:00:00 [facility] Hib-HbOC 1992 Completed [facility] 00:00:00 [facility] Poliovirus, Live, 1992 Completed [facility] ity of Oral, Trivalent 00:00:00 [facility] SARS-COV-2 COVID-19 Unknown Completed Unive rsity of PFIZER VACCINE [facility] Branch SARS-COV-2 COVID-19 Unknown Completed Unive rsity of PFIZER VACCINE [facility] DTP Unknown Completed [facility] DTP Unknown Completed [facility] DTP Unknown Completed [facility] DTP Unknown Completed [facility] DTaP, Unspecified Unknown Completed Univers ity of Formulation [facility] Influenza Virus Unknown Completed Universit y of Vaccine Quad .5 mL [facility] 6+ MO Branch (FLUZONE/FLULAVAL/FL UARIX) Hep B, Unspecified Unknown Completed Univer sity of Formulation [facility] HEPATITIS A Unknown Completed [facility] HEPATITIS A Unknown Completed [facility] Hep B, Unspecified Unknown Completed Univer sity of Formulation [facility] Hep B, Adol or Pedi Unknown Completed Unive rsity of Dosage [facility] Hep B, Adol or Pedi Unknown Completed Unive rsity of Dosage [facility] Hep B, Adol or Pedi Unknown Completed Unive rsity of Dosage [facility] Heamophilus Unknown Completed [facility] Influenza B [facility] Heamophilus Unknown Completed [facility] Influenza B [facility] Heamophilus Unknown Completed [facility] Influenza B [facility] Heamophilus Unknown Completed [facility] Influenza B [facility] Hib-HbOC Unknown Completed [facility] Hib-HbOC Unknown Completed [facility] Hib-HbOC Unknown Completed [facility] Hib-HbOC Unknown Completed [facility] HPV Unknown Completed [facility] HPV Unknown Completed [facility] HPV Unknown Completed [facility] Meningococcal Unknown Completed [facility] (groups A, C, Y and Branc h W-135) conjugate vaccine (MCV4P) MMR Unknown Completed [facility] MMR Unknown Completed [facility] Poliovirus, Live, Unknown Completed Univers ity of Oral, Trivalent [facility] Poliovirus, Live, Unknown Completed Univers ity of Oral, Trivalent [facility] Poliovirus, Live, Unknown Completed [facility] ity of Oral, Trivalent [facility] Poliovirus, Live, Unknown Completed [facility]y of Oral, Trivalent [facility] Tetanus/Diptheria Unknown Completed Univers ity [facility] TDAP Unknown Completed [facility] Varicella Unknown Completed University (varivax[place] [place] [facility] pox) Branch Varicella Unknown Completed [facility] (varivax)(chicken [place] [facility] pox) Branch SARS-COV-2 COVID-19 Unknown Completed Unive rsity of PFIZER VACCINE [facility] SARS-COV-2 COVID-19 Unknown Completed Unive rsity of PFIZER VACCINE [facility] DTP Unknown Completed [facility] DTP Unknown Completed [facility] DTP Unknown Completed [facility] DTP Unknown Completed [facility] DTaP, Unspecified Unknown Completed Univers ity of Formulation [facility] Influenza Virus Unknown Completed Universit y of Vaccine Quad .5 mL [facility] 6+ [place] Branch (FLUZONE/FLULAVAL/FL UARIX) Hep B, Unspecified Unknown Completed Univer sity of Formulation [facility] HEPATITIS A Unknown Completed [facility] HEPATITIS A Unknown Completed [facility] Hep B, Unspecified Unknown Completed Univer sity of Formulation [facility] Hep B, Adol or Pedi Unknown Completed Unive rsity of Dosage [facility] Hep B, Adol or Pedi Unknown Completed Unive rsity of Dosage [facility] Hep B, Adol or Pedi Unknown Completed Unive rsity of Dosage [facility] Heamophilus Unknown Completed [facility] Influenza B [facility] Heamophilus Unknown Completed [facility] Influenza B [facility] Heamophilus Unknown Completed [facility] Influenza B [facility] Heamophilus Unknown Completed [facility] Influenza B [facility] Hib-HbOC Unknown Completed [facility] Hib-HbOC Unknown Completed [facility] Hib-HbOC Unknown Completed [facility] Hib-HbOC Unknown Completed [facility] HPV Unknown Completed [facility] HPV Unknown Completed [facility] HPV Unknown Completed [facility] Meningococcal Unknown Completed [facility] Polysaccharide [facility] (groups A, C, Y and Branc h W-135) conjugate vaccine (MCV4P) MMR Unknown Completed [facility] MMR Unknown Completed [facility] Poliovirus, Live, Unknown Completed Univers ity of Oral, Trivalent [facility] Poliovirus, Live, Unknown Completed Univers ity of Oral, Trivalent [facility] Poliovirus, Live, Unknown Completed Univers ity of Oral, Trivalent [facility] Poliovirus, Live, Unknown Completed Univers ity of Oral, Trivalent [facility] Tetanus/Diptheria Unknown Completed Univers ity [facility] TDAP Unknown Completed [facility] Varicella Unknown Completed [facility] (varivax)(chicken [place] [facility] pox) Branch Varicella Unknown Completed [facility] (varivax)(chicken [place] [facility] pox) Branch SARS-COV-2 COVID-19 Unknown Completed Unive rsity of PFIZER VACCINE [facility] SARS-COV-2 COVID-19 Unknown Completed Unive rsity of PFIZER VACCINE [facility] DTP Unknown Completed [facility] DTP Unknown Completed [facility] DTP Unknown Completed [facility] DTP Unknown Completed [facility] DTaP, Unspecified Unknown Completed Univers ity of Formulation [facility] Influenza Virus Unknown Completed Universit y of Vaccine Quad .5 mL [facility] 6+ [place] Branch (FLUZONE/FLULAVAL/FL UARIX) Hep B, Unspecified Unknown Completed Univer sity of Formulation [facility] HEPATITIS A Unknown Completed [facility] HEPATITIS A Unknown Completed [facility] Hep B, Unspecified Unknown Completed Univer sity of Formulation [facility] Hep B, Adol or Pedi Unknown Completed Unive rsity of Dosage [facility] Hep B, Adol or Pedi Unknown Completed Unive rsity of Dosage [facility] Hep B, Adol or Pedi Unknown Completed Unive rsity of Dosage [facility] Heamophilus Unknown Completed [facility] Influenza B [facility] Heamophilus Unknown Completed [facility] Influenza B [facility] Heamophilus Unknown Completed [facility] Influenza B [facility] Heamophilus Unknown Completed [facility] Influenza B [facility] Hib-HbOC Unknown Completed [facility] Hib-HbOC Unknown Completed [facility] Hib-HbOC Unknown Completed [facility] Hib-HbOC Unknown Completed [facility] HPV Unknown Completed [facility] HPV Unknown Completed [facility] HPV Unknown Completed [facility] Meningococcal Unknown Completed [facility] Polysaccharide [facility] (groups A, C, Y and Branc h W-135) conjugate vaccine (MCV4P) MMR Unknown Completed [facility] MMR Unknown Completed [facility] Poliovirus, Live, Unknown Completed Univers ity of Oral, Trivalent [facility] Poliovirus, Live, Unknown Completed Univers ity of Oral, Trivalent [facility] Poliovirus, Live, Unknown Completed Univers ity of Oral, Trivalent [facility] Poliovirus, Live, Unknown Completed Univers ity of Oral, Trivalent [facility] Tetanus/Diptheria Unknown Completed Univers ity [facility] TDAP Unknown Completed [facility] Varicella Unknown Completed [facility] (varivax)(chicken [place] [facility] pox) Branch Varicella Unknown Completed [facility] (varivax)(chicken [place] [facility] [place] pox) [place] SARS-COV-2 COVID-19 Unknown Completed Unive rsity of PFIZER VACCINE [facility] SARS-COV-2 COVID-19 Unknown Completed Unive rsity of PFIZER VACCINE [facility] DTP Unknown Completed [facility] DTP Unknown Completed [facility] DTP Unknown Completed [facility] DTP Unknown Completed [facility] DTaP, Unspecified Unknown Completed Univers ity of Formulation [facility] Influenza Virus Unknown Completed Universit y of Vaccine Quad .5 mL [facility] 6[facility] [place] Branch (FLUZONE/FLULAVAL/FL UARIX) Hep B, Unspecified Unknown Completed Univer sity of Formulation [facility] HEPATITIS A Unknown Completed [facility] HEPATITIS A Unknown Completed [facility] Hep B, Unspecified Unknown Completed Univer sity of Formulation [facility] Hep B, Adol or Pedi Unknown Completed Unive rsity of Dosage [facility] Hep B, Adol or Pedi Unknown Completed Unive rsity of Dosage [facility] Hep B, Adol or Pedi Unknown Completed Unive rsity of Dosage [facility] Heamophilus Unknown Completed [facility] Heamophilus Unknown Completed [facility] Influenza B [facility] Heamophilus Unknown Completed [facility] Influenza B [facility] Heamophilus Unknown Completed [facility] Influenza [facility] Hib-HbOC Unknown Completed [facility] Hib-HbOC Unknown Completed [facility] Hib-HbOC Unknown Completed [facility] Hib-HbOC Unknown Completed [facility] HPV Unknown Completed [facility] HPV Unknown Completed [facility] HPV Unknown Completed [facility] Meningococcal Unknown Completed [facility] (groups A, C, Y and Branc h W-135) conjugate vaccine (MCV4P) MMR Unknown Completed [facility] MMR Unknown Completed [facility] Poliovirus, Live, Unknown Completed Univers ity of Oral, Trivalent [facility] Poliovirus, Live, Unknown Completed Univers ity of Oral, Trivalent [facility] Poliovirus, Live, Unknown Completed Univers ity of Oral, Trivalent [facility] Poliovirus, Live, Unknown Completed Univers ity of Oral, Trivalent [facility] Tetanus/Diptheria Unknown Completed Univers ity [facility] TDAP Unknown Completed [facility] Varicella Unknown Completed [facility] (varivax)(chicken [place] [facility] pox) Branch Varicella Unknown Completed [facility] (varivax)(chicken [place] [facility] pox) Branch SARS-COV-2 COVID-19 Unknown Completed Unive rsity of PFIZER VACCINE [facility] SARS-COV-2 COVID-19 Unknown Completed Unive rsity of PFIZER VACCINE [facility] DTP Unknown Completed [facility] DTP Unknown Completed [facility] DTP Unknown Completed [facility] DTP Unknown Completed [facility] DTaP, Unspecified Unknown Completed [facility]y of Formulation [facility] Influenza Virus Unknown Completed Universit y of Vaccine Quad .5 mL [facility] 6+ [place] [facility] (FLUZONE/FLULAVAL/FL UARIX) Hep B, Unspecified Unknown Completed Univer sity of Formulation [facility] HEPATITIS A Unknown Completed [facility] HEPATITIS A Unknown Completed [facility] Hep B, Unspecified Unknown Completed Univer sity of Formulation [facility] Hep B, Adol or Pedi Unknown Completed Unive rsity of Dosage [facility] Hep B, Adol or Pedi Unknown Completed Unive rsity of Dosage [facility] Hep B, Adol or Pedi Unknown Completed Unive rsity of Dosage [facility] Heamophilus Unknown Completed [facility] Influenza B [facility] Heamophilus Unknown Completed [facility] Influenza B [facility] Heamophilus Unknown Completed [facility] Influenza [facility] Heamophilus Unknown Completed [facility] Influenza [facility] Hib-HbOC Unknown Completed [facility] Hib-HbOC Unknown Completed [facility] Hib-HbOC Unknown Completed [facility] Hib-HbOC Unknown Completed [facility] HPV Unknown Completed [facility] HPV Unknown Completed [facility] HPV Unknown Completed [facility] Meningococcal Unknown Completed [facility] (groups A, C, Y and Branc h W-135) conjugate vaccine (MCV4P) MMR Unknown Completed [facility] MMR Unknown Completed [facility] Poliovirus, Live, Unknown Completed Univers ity of Oral, Trivalent [facility] Poliovirus, Live, Unknown Completed [facility]y of Oral, Trivalent [facility] Poliovirus, Live, Unknown Completed [facility] of Oral, Trivalent [facility] Poliovirus, Live, Unknown Completed [facility] ity of Oral, Trivalent [facility] Tetanus/Diptheria Unknown Completed Univers ity [facility] TDAP Unknown Completed [facility] Varicella Unknown Completed [facility] (varivax)(chicken [place] [facility] pox) Branch Varicella Unknown Completed [facility] (varivax)(chicken [place] [facility] pox) Branch SARS-COV-2 COVID-19 Unknown Completed Unive rsity of PFIZER VACCINE [facility] SARS-COV-2 COVID-19 Unknown Completed Unive rsity of PFIZER VACCINE [facility] DTP Unknown Completed [facility] DTP Unknown Completed [facility] DTP Unknown Completed [facility] DTP Unknown Completed [facility] DTaP, Unspecified Unknown Completed [facility] of Formulation [facility] Influenza Virus Unknown Completed [facility]it y of Vaccine Quad .5 mL [facility] 6[facility] [place] Branch (FLUZONE/FLULAVAL/FL UARIX) Hep B, Unspecified Unknown Completed Univer sity of Formulation [facility] HEPATITIS A Unknown Completed [facility] HEPATITIS A Unknown Completed [facility] Hep B, Unspecified Unknown Completed Univer sity of Formulation [facility] Hep B, Adol or Pedi Unknown Completed Unive rsity of Dosage [facility] Hep B, Adol or Pedi Unknown Completed Unive rsity of Dosage [facility] Hep B, Adol or Pedi Unknown Completed Unive rsity of Dosage [facility] Heamophilus Unknown Completed [facility] Influenza B [facility] Heamophilus Unknown Completed [facility] Influenza B [facility] Heamophilus Unknown Completed [facility] Influenza B [facility] Heamophilus Unknown Completed [facility] Influenza B [facility] Hib-HbOC Unknown Completed [facility] Hib-HbOC Unknown Completed [facility] Hib-HbOC Unknown Completed [facility] Hib-HbOC Unknown Completed [facility] HPV Unknown Completed [facility] HPV Unknown Completed [facility] HPV Unknown Completed [facility] Meningococcal Unknown Completed [facility] (groups A, C, Y and Branc h W-135) conjugate vaccine (MCV4P) MMR Unknown Completed [facility] MMR Unknown Completed [facility] Poliovirus, Live, Unknown Completed [facility]y of Oral, Trivalent [facility] Poliovirus, Live, Unknown Completed [facility]y of Oral, Trivalent [facility] Poliovirus, Live, Unknown Completed Univers ity of Oral, Trivalent [facility] Poliovirus, Live, Unknown Completed Univers ity of Oral, Trivalent [facility] Tetanus/Diptheria Unknown Completed Univers [facility]y [facility] TDAP Unknown Completed [facility] Varicella Unknown Completed [facility] (varivax)(chicken [place] [facility] pox) Branch Varicella Unknown Completed [facility] (varivax)(chicken [place] [facility] pox) Branch SARS-COV-2 COVID-19 Unknown Completed Unive rsity of PFIZER VACCINE [facility] SARS-COV-2 COVID-19 Unknown Completed Unive rsity of PFIZER VACCINE [facility] DTP Unknown Completed [facility] DTP Unknown Completed [facility] DTP Unknown Completed [facility] DTP Unknown Completed [facility] DTaP, Unspecified Unknown Completed [facility]y of Formulation [facility] Influenza Virus Unknown Completed Universit [facility] of Vaccine Quad .5 mL [facility] 6[facility] [place] Branch (FLUZONE/FLULAVAL/FL UARIX) Hep B, Unspecified Unknown Completed Univer sity of Formulation [facility] HEPATITIS A Unknown Completed [facility] HEPATITIS A Unknown Completed [facility] Hep B, Unspecified Unknown Completed Univer [facility]ity of Formulation [facility] Hep B, Adol or Pedi Unknown Completed Unive rsity of Dosage [facility] Hep B, Adol or Pedi Unknown Completed [facility]ive [facility] of Dosage [facility] Hep B, Adol or Pedi Unknown Completed Unive rsity of Dosage [facility] Heamophilus Unknown Completed [facility] Influenza B [facility] Heamophilus Unknown Completed [facility] Influenza B [facility] Heamophilus Unknown Completed [facility] Influenza B [facility] Heamophilus Unknown Completed [facility] Influenza [facility] Hib-HbOC Unknown Completed [facility] Hib-HbOC Unknown Completed [facility] Hib-HbOC Unknown Completed [facility] Hib-HbOC Unknown Completed [facility] HPV Unknown Completed [facility] HPV Unknown Completed [facility] HPV Unknown Completed [facility] Meningococcal Unknown Completed [facility] (groups A, C, Y and Branc h W-135) conjugate vaccine (MCV4P) MMR Unknown Completed [facility] MMR Unknown Completed [facility] Poliovirus, Live, Unknown Completed Univers ity of Oral, Trivalent [facility] Poliovirus, Live, Unknown Completed [facility] of Oral, Trivalent [facility] Poliovirus, Live, Unknown Completed [facility] Oral, Trivalent [facility] Poliovirus, Live, Unknown Completed [facility] Oral, Trivalent [facility] Tetanus/Diptheria Unknown Completed Univers ity [facility] TDAP Unknown Completed [facility] Varicella Unknown Completed [facility] (varivax[facility] [place] [facility] pox[facility] Varicella Unknown Completed [facility] ([facility] [place] [facility] pox[facility] SARS-COV-2 COVID-19 Unknown Completed Unive rsity of PFIZER VACCINE [facility] SARS-COV-2 COVID-19 Unknown Completed [facility]ive rs[facility] of PFIZER VACCINE [facility] DTP Unknown Completed [facility] DTP Unknown Completed [facility] DTP Unknown Completed [facility] DTP Unknown Completed [facility] DTaP, Unspecified Unknown Completed [facility] Formulation [facility] Influenza Virus Unknown Completed Universit y of Vaccine Quad .5 mL [facility] 6[facility] MO Branch (FLUZONE/FLULAVAL/FL UARIX) Hep B, Unspecified Unknown Completed [facility] Formulation [facility] HEPATITIS A Unknown Completed [facility] HEPATITIS A Unknown Completed [facility] Hep B, Unspecified Unknown Completed [facility] Form[facility] Hep B, Adol or Pedi Unknown Completed [facility] of Dosage [facility] Hep B, Adol or Pedi Unknown Completed [facility] of Dosage [facility] Hep B, Adol or Pedi Unknown Completed [facility] of Dosage [facility] Heamophilus Unknown Completed [facility] Influenza B [facility] Heamophilus Unknown Completed [facility] Influenza B [facility] Heamophilus Unknown Completed [facility] Influenza B [facility] Heamophilus Unknown Completed [facility] Hib-HbOC Unknown Completed [facility] Hib-HbOC Unknown Completed [facility] Hib-HbOC Unknown Completed [facility] Hib-HbOC Unknown Completed [facility] HPV Unknown Completed [facility] HPV Unknown Completed [facility] HPV Unknown Completed [facility] Meningococcal Unknown Completed [facility] Polysaccharide [facility] (groups A, C, Y and Branc h W-135) conjugate vaccine (MCV4P) MMR Unknown Completed [facility] MMR Unknown Completed [facility] Poliovirus, Live, Unknown Completed [facility] of Oral, Trivalent [facility] Poliovirus, Live, Unknown Completed [facility] Oral, Trivalent [facility] Poliovirus, Live, Unknown Completed [facility] of Oral, Trivalent [facility] Poliovirus, Live, Unknown Completed [facility] of Oral, Trivalent [facility] Tetanus/Diptheria Unknown Completed Univers it[facility] TDAP Unknown Completed [facility] Varicella Unknown Completed [facility] (varivax[facility] [place] [facility] pox[facility] Varicella Unknown Completed [facility] (var[facility]ax[facility] [place] [facility] p[facility] SARS-COV-2 COVID-19 Unknown Completed Unive rs[facility] of PFIZER VACCINE [facility] SARS-COV-2 COVID-19 Unknown Completed [facility]ive rs[facility] of PFIZER VACCINE [facility] DTP Unknown Completed [facility] DTP Unknown Completed [facility] DTP Unknown Completed [facility] DTP Unknown Completed [facility] DTaP, Unspecified Unknown Completed [facility] Form[facility] Influenza Virus Unknown Completed [facility]it y of Vaccine Quad .5 mL [facility] 6[facility] [place] [facility] (FLUZONE/FLULAVAL/FL UARIX) Hep B, Unspecified Unknown Completed Univer sity of [facility] HEPATITIS A Unknown Completed [facility] HEPATITIS A Unknown Completed [facility] Hep B, Unspecified Unknown Completed [facility] Formulation [facility] Hep B, Adol or Pedi Unknown Completed [facility] of Dosage [facility] Hep B, Adol or Pedi Unknown Completed [facility] of Dosage [facility] Hep B, Adol or Pedi Unknown Completed [facility] of Dosage [facility] Heamophilus Unknown Completed [facility] Heamophilus Unknown Completed [facility] Influenza [facility] Heamophilus Unknown Completed [facility] Influenza [facility] Heamophilus Unknown Completed [facility] Hib-HbOC Unknown Completed [facility] Hib-HbOC Unknown Completed [facility] Hib-HbOC Unknown Completed [facility] Hib-HbOC Unknown Completed [facility] HPV Unknown Completed [facility] HPV Unknown Completed [facility] HPV Unknown Completed [facility] Meningococcal Unknown Completed [facility] (groups A, C, Y and Branc h W-135) conjugate vaccine (MCV4P) MMR Unknown Completed [facility] MMR Unknown Completed [facility] Poliovirus, Live, Unknown Completed [facility] of Oral, Trivalent [facility] Poliovirus, Live, Unknown Completed [facility] of Oral, Trivalent [facility] Poliovirus, Live, Unknown Completed [facility] of Oral, Trivalent [facility] Poliovirus, Live, Unknown Completed [facility] of Oral, Trivalent [facility] Tetanus/Diptheria Unknown Completed [facility] TDAP Unknown Completed [facility] Varicella Unknown Completed [facility] (varivax[facility] [place] [facility] pox[facility] Varicella Unknown Completed [facility] (varivax[facility] [place] [facility] p[facility] SARS-COV-2 COVID-19 Unknown Completed Unive rsity of PFIZER VACCINE [facility] SARS-COV-2 COVID-19 Unknown Completed Unive rs[facility] of PFIZER VACCINE [facility] DTP Unknown Completed [facility] DTP Unknown Completed [facility] DTP Unknown Completed [facility] DTP Unknown Completed [facility] DTaP, Unspecified Unknown Completed [facility] Formulation [facility] Influenza Virus Unknown Completed [facility] of Vaccine Quad .5 mL [facility] 6[facility] (FLUZONE/FLULAVAL/FL UARIX) Hep B, Unspecified Unknown Completed [facility] Formulation [facility] HEPATITIS A Unknown Completed [facility] HEPATITIS A Unknown Completed [facility] Hep B, Unspecified Unknown Completed [facility] Formulation [facility] Hep B, Adol or Pedi Unknown Completed [facility] of Dosage [facility] Hep B, Adol or Pedi Unknown Completed [facility] of Dosage [facility] Hep B, Adol or Pedi Unknown Completed [facility] of Dosage [facility] Heamophilus Unknown Completed [facility] Influenza [facility] Heamophilus Unknown Completed [facility] Influenza [facility] Heamophilus Unknown Completed [facility] Influenza [facility] Heamophilus Unknown Completed [facility] Hib-HbOC Unknown Completed [facility] Hib-HbOC Unknown Completed [facility] Hib-HbOC Unknown Completed [facility] Hib-HbOC Unknown Completed [facility] HPV Unknown Completed [facility] HPV Unknown Completed [facility] HPV Unknown Completed [facility] Meningococcal Unknown Completed [facility] Polysaccharide [facility] (groups A, C, Y and Branc h W-135) conjugate vaccine (MCV4P) MMR Unknown Completed [facility] MMR Unknown Completed [facility] Poliovirus, Live, Unknown Completed [facility] ity of Oral, Trivalent [facility] Poliovirus, Live, Unknown Completed [facility] of Oral, Trivalent [facility] Poliovirus, Live, Unknown Completed [facility] it[facility] of Oral, Trivalent [facility] Poliovirus, Live, Unknown Completed [facility] it[facility] of Oral, Trivalent [facility] Tetanus/Diptheria Unknown Completed Univers ity [facility] TDAP Unknown Completed [facility] Varicella Unknown Completed [facility] (varivax[facility] [place] [facility] pox[facility] Varicella Unknown Completed [facility] (varivax[facility] [place] [facility] pox[facility] SARS-COV-2 COVID-19 Unknown Completed [facility]ive [facility] of PFIZER VACCINE [facility] SARS-COV-2 COVID-19 Unknown Completed Unive rs[facility] of PFIZER VACCINE [facility] DTP Unknown Completed [facility] DTP Unknown Completed [facility] DTP Unknown Completed [facility] DTP Unknown Completed [facility] DTaP, Unspecified Unknown Completed [facility] Form[facility] Influenza Virus Unknown Completed [facility] of Vaccine Quad .5 mL [facility] 6[facility] (FLUZONE/FLULAVAL/FL UARIX) Hep B, Unspecified Unknown Completed [facility] of Formulation [facility] HEPATITIS A Unknown Completed [facility] HEPATITIS A Unknown Completed [facility] Hep B, Unspecified Unknown Completed [facility] of Formulation [facility] Hep B, Adol or Pedi Unknown Completed [facility] of Dosage [facility] Hep B, Adol or Pedi Unknown Completed [facility] of Dosage [facility] Hep B, Adol or Pedi Unknown Completed [facility] of Dosage [facility] Heamophilus Unknown Completed [facility] Influenza [facility] Heamophilus Unknown Completed [facility] Influenza B [facility] Heamophilus Unknown Completed [facility] Influenza B [facility] Heamophilus Unknown Completed [facility] Hib-HbOC Unknown Completed [facility] Hib-HbOC Unknown Completed [facility] Hib-HbOC Unknown Completed [facility] Hib-HbOC Unknown Completed [facility] HPV Unknown Completed [facility] HPV Unknown Completed [facility] HPV Unknown Completed [facility] Meningococcal Unknown Completed [facility] Polysaccharide [facility] (groups A, C, Y and Branc h W-135) conjugate vaccine (MCV4P) MMR Unknown Completed [facility] MMR Unknown Completed [facility] Poliovirus, Live, Unknown Completed [facility] it[facility] of Oral, Trivalent [facility] Poliovirus, Live, Unknown Completed [facility] of Oral, Trivalent [facility] Poliovirus, Live, Unknown Completed [facility] of Oral, Trivalent [facility] Poliovirus, Live, Unknown Completed [facility] of Oral, Trivalent [facility] Tetanus/Diptheria Unknown Completed Univers ity [facility] TDAP Unknown Completed [facility] Varicella Unknown Completed [facility] (varivax[facility] [place] [facility] pox[facility] Varicella Unknown Completed [facility] (varivax)(chicken [place] [facility] pox) Branch SARS-COV-2 COVID-19 Unknown Completed Unive rsity of PFIZER VACCINE [facility] SARS-COV-2 COVID-19 Unknown Completed Unive rsity of PFIZER VACCINE [facility] DTP Unknown Completed [facility] DTP Unknown Completed [facility] DTP Unknown Completed [facility] DTP Unknown Completed [facility] DTaP, Unspecified Unknown Completed [facility] Formulation [facility] Influenza Virus Unknown Completed [facility] of Vaccine Quad .5 mL [facility] 6[facility] (FLUZONE/FLULAVAL/FL UARIX) Hep B, Unspecified Unknown Completed [facility]iver [facility] of Formulation [facility] HEPATITIS A Unknown Completed [facility] HEPATITIS A Unknown Completed [facility] Hep B, Unspecified Unknown Completed Univer [facility]ity of [facility] Hep B, Adol or Pedi Unknown Completed [facility]ive rsity of Dosage [facility] Hep B, Adol or Pedi Unknown Completed [facility] of Dosage [facility] Hep B, Adol or Pedi Unknown Completed [facility]ive [facility] of Dosage [facility] Heamophilus Unknown Completed [facility] Heamophilus Unknown Completed [facility] Influenza [facility] Heamophilus Unknown Completed [facility] Influenza [facility] Heamophilus Unknown Completed [facility] Influenza [facility] Hib-HbOC Unknown Completed [facility] Hib-HbOC Unknown Completed [facility] Hib-HbOC Unknown Completed [facility] Hib-HbOC Unknown Completed [facility] HPV Unknown Completed [facility] HPV Unknown Completed [facility] HPV Unknown Completed [facility] Meningococcal Unknown Completed [facility] (groups A, C, Y and Branc h W-135) conjugate vaccine (MCV4P) MMR Unknown Completed [facility] MMR Unknown Completed [facility] Poliovirus, Live, Unknown Completed [facility] of Oral, Trivalent [facility] Poliovirus, Live, Unknown Completed [facility]y of Oral, Trivalent [facility] Poliovirus, Live, Unknown Completed [facility]y of Oral, Trivalent [facility] Poliovirus, Live, Unknown Completed [facility] of Oral, Trivalent [facility] Tetanus/Diptheria Unknown Completed [facility] TDAP Unknown Completed [facility] Varicella Unknown Completed [facility] (varivax)(chicken [place] [facility] pox) Branch Varicella Unknown Completed [facility] (varivax)(chicken [place] [facility] pox) Branch SARS-COV-2 COVID-19 Unknown Completed Unive rsity of PFIZER VACCINE [facility] SARS-COV-2 COVID-19 Unknown Completed Unive rsity of PFIZER VACCINE [facility] DTP Unknown Completed [facility] DTP Unknown Completed [facility] DTP Unknown Completed [facility] DTP Unknown Completed [facility] DTaP, Unspecified Unknown Completed [facility] Formulation [facility] Influenza Virus Unknown Completed Universit y of Vaccine Quad .5 mL [facility] 6[facility] (FLUZONE/FLULAVAL/FL UARIX) Hep B, Unspecified Unknown Completed Univer [facility]ity of Formulation [facility] HEPATITIS A Unknown Completed [facility] HEPATITIS A Unknown Completed [facility] Hep B, Unspecified Unknown Completed Univer [facility] of Formulation [facility] Hep B, Adol or Pedi Unknown Completed Unive rsity of Dosage [facility] Hep B, Adol or Pedi Unknown Completed [facility] of Dosage [facility] Hep B, Adol or Pedi Unknown Completed [facility]ive rsity of Dosage [facility] Heamophilus Unknown Completed [facility] Influenza B [facility] Heamophilus Unknown Completed [facility] Influenza [facility] Heamophilus Unknown Completed [facility] Influenza B [facility] Heamophilus Unknown Completed [facility] Influenza [facility] Hib-HbOC Unknown Completed [facility] Hib-HbOC Unknown Completed [facility] Hib-HbOC Unknown Completed [facility] Hib-HbOC Unknown Completed [facility] HPV Unknown Completed [facility] HPV Unknown Completed [facility] HPV Unknown Completed [facility] Meningococcal Unknown Completed [facility] (groups A, C, Y and Branc h W-135) conjugate vaccine (MCV4P) MMR Unknown Completed [facility] MMR Unknown Completed [facility] Poliovirus, Live, Unknown Completed [facility] Oral, Trivalent [facility] Poliovirus, Live, Unknown Completed [facility]y of Oral, Trivalent [facility] Poliovirus, Live, Unknown Completed [facility] of Oral, Trivalent [facility] Poliovirus, Live, Unknown Completed [facility] of Oral, Trivalent [facility] Tetanus/Diptheria Unknown Completed Univers ity [facility] TDAP Unknown Completed [facility] Varicella Unknown Completed [facility] (varivax)(chicken [place] [facility] pox) Branch Varicella Unknown Completed [facility] (varivax)(chicken [place] [facility] pox) Branch SARS-COV-2 COVID-19 Unknown Completed Unive rsity of PFIZER VACCINE [facility] SARS-COV-2 COVID-19 Unknown Completed Unive rsity of PFIZER VACCINE [facility] DTP Unknown Completed [facility] DTP Unknown Completed [facility] DTP Unknown Completed [facility] DTP Unknown Completed [facility] DTaP, Unspecified Unknown Completed [facility] Formulation [facility] Influenza Virus Unknown Completed [facility] of Vaccine Quad .5 mL [facility] 6[facility] [place] [facility] (FLUZONE/FLULAVAL/FL UARIX) Hep B, Unspecified Unknown Completed [facility]iver [facility] of Formulation [facility] HEPATITIS A Unknown Completed [facility] HEPATITIS A Unknown Completed [facility] Hep B, Unspecified Unknown Completed [facility] of Formulation [facility] Hep B, Adol or Pedi Unknown Completed [facility]ive [facility]ity of Dosage [facility] Hep B, Adol or Pedi Unknown Completed [facility] of Dosage [facility] Hep B, Adol or Pedi Unknown Completed [facility]ive [facility]ity of Dosage [facility] Heamophilus Unknown Completed [facility] Influenza B [facility] Heamophilus Unknown Completed [facility] Influenza B [facility] Heamophilus Unknown Completed [facility] Influenza B [facility] Heamophilus Unknown Completed [facility] Influenza B [facility] Hib-HbOC Unknown Completed [facility] Hib-HbOC Unknown Completed [facility] Hib-HbOC Unknown Completed [facility] Hib-HbOC Unknown Completed [facility] HPV Unknown Completed [facility] HPV Unknown Completed [facility] HPV Unknown Completed [facility] Meningococcal Unknown Completed [facility] Polysaccharide [facility] (groups A, C, Y and Branc h W-135) conjugate vaccine (MCV4P) MMR Unknown Completed [facility] MMR Unknown Completed [facility] Poliovirus, Live, Unknown Completed [facility]y of Oral, Trivalent [facility] Poliovirus, Live, Unknown Completed [facility] of Oral, Trivalent [facility] Poliovirus, Live, Unknown Completed [facility] of Oral, Trivalent [facility] Poliovirus, Live, Unknown Completed [facility] of Oral, Trivalent [facility] Tetanus/Diptheria Unknown Completed Univers ity [facility] TDAP Unknown Completed [facility] Varicella Unknown Completed [facility] (varivax[facility]ch[facility] [place] [facility] pox) Branch Varicella Unknown Completed [facility] (varivax[facility]chicken [place] [facility] pox) Branch SARS-COV-2 COVID-19 Unknown Completed Unive rsity of PFIZER VACCINE [facility] SARS-COV-2 COVID-19 Unknown Completed Unive rsity of PFIZER VACCINE [facility] DTP Unknown Completed [facility] DTP Unknown Completed [facility] DTP Unknown Completed [facility] DTP Unknown Completed [facility] DTaP, Unspecified Unknown Completed [facility] Formulation [facility] Influenza Virus Unknown Completed [facility] of Vaccine Quad .5 mL [facility] [place] [facility] (FLUZONE/FLULAVAL/FL UARIX) Hep B, Unspecified Unknown Completed [facility]iver [facility] of Formulation [facility] HEPATITIS A Unknown Completed [facility] HEPATITIS A Unknown Completed [facility] Hep B, Unspecified Unknown Completed [facility] of Formulation [facility] Hep B, Adol or Pedi Unknown Completed [facility]ive rsity of Dosage [facility] Hep B, Adol or Pedi Unknown Completed [facility]ive [facility] of Dosage [facility] Hep B, Adol or Pedi Unknown Completed Unive rsity of Dosage [facility] Heamophilus Unknown Completed [facility] Influenza B [facility] Heamophilus Unknown Completed [facility] Influenza B [facility] Heamophilus Unknown Completed [facility] Influenza B [facility] Heamophilus Unknown Completed [facility] Influenza B [facility] Hib-HbOC Unknown Completed [facility] Hib-HbOC Unknown Completed [facility] Hib-HbOC Unknown Completed [facility] Hib-HbOC Unknown Completed [facility] HPV Unknown Completed [facility] HPV Unknown Completed [facility] HPV Unknown Completed [facility] Meningococcal Unknown Completed [facility] Polysaccharide [facility] (groups A, C, Y and Branc h W-135) conjugate vaccine (MCV4P) MMR Unknown Completed [facility] MMR Unknown Completed [facility] Poliovirus, Live, Unknown Completed Univers ity of Oral, Trivalent [facility] Poliovirus, Live, Unknown Completed Univers ity of Oral, Trivalent [facility] Poliovirus, Live, Unknown Completed Univers ity of Oral, Trivalent [facility] Poliovirus, Live, Unknown Completed Univers ity of Oral, Trivalent [facility] Tetanus/Diptheria Unknown Completed Univers ity [facility] TDAP Unknown Completed [facility] Varicella Unknown Completed [facility] (varivax)(chicken [place] [facility] pox) Branch Varicella Unknown Completed [facility] (varivax)(chicken [place] [facility] pox[place] SARS-COV-2 COVID-19 Unknown Completed Unive rsity of PFIZER VACCINE [facility] SARS-COV-2 COVID-19 Unknown Completed Unive rsity of PFIZER VACCINE [facility] DTP Unknown Completed [facility] DTP Unknown Completed [facility] DTP Unknown Completed [facility] DTP Unknown Completed [facility] DTaP, Unspecified Unknown Completed Univers ity of Formulation [facility] Influenza Virus Unknown Completed Universit y of Vaccine Quad .5 mL [facility] 6+ [place] [facility] (FLUZONE/FLULAVAL/FL UARIX) Hep B, Unspecified Unknown Completed Univer sity of Formulation [facility] HEPATITIS A Unknown Completed [facility] HEPATITIS A Unknown Completed [facility] Hep B, Unspecified Unknown Completed Univer sity of Formulation [facility] Hep B, Adol or Pedi Unknown Completed Unive rsity of Dosage [facility] Hep B, Adol or Pedi Unknown Completed Unive rsity of Dosage [facility] Hep B, Adol or Pedi Unknown Completed Unive rsity of Dosage [facility] Heamophilus Unknown Completed [facility] Influenza B [facility] Heamophilus Unknown Completed [facility] Influenza B [facility] Heamophilus Unknown Completed [facility] Influenza [facility] Heamophilus Unknown Completed [facility] Influenza [facility] Hib-HbOC Unknown Completed [facility] Hib-HbOC Unknown Completed [facility] Hib-HbOC Unknown Completed [facility] Hib-HbOC Unknown Completed [facility] HPV Unknown Completed [facility] HPV Unknown Completed [facility] HPV Unknown Completed [facility] Meningococcal Unknown Completed [facility] (groups A, C, Y and Branc h W-135) conjugate vaccine (MCV4P) MMR Unknown Completed [facility] MMR Unknown Completed [facility] Poliovirus, Live, Unknown Completed Univers ity of Oral, Trivalent [facility] Poliovirus, Live, Unknown Completed Univers ity of Oral, Trivalent [facility] Poliovirus, Live, Unknown Completed Univers ity of Oral, Trivalent [facility] Poliovirus, Live, Unknown Completed Univers ity of Oral, Trivalent [facility] Tetanus/Diptheria Unknown Completed Univers ity [facility] TDAP Unknown Completed [facility] Varicella Unknown Completed University (varivax)(ch[facility] [place] [facility] pox) Branch Varicella Unknown Completed [facility] (varivax)(chicken [facility] edical pox) Branch SARS-COV-2 COVID-19 Unknown Completed Unive rsity of PFIZER VACCINE [facility] SARS-COV-2 COVID-19 Unknown Completed Unive rsity of PFIZER VACCINE [facility] DTP Unknown Completed [facility] DTP Unknown Completed [facility] DTP Unknown Completed [facility] DTP Unknown Completed [facility] DTaP, Unspecified Unknown Completed Univers ity of Formulation [facility] Influenza Virus Unknown Completed Universit y of Vaccine Quad .5 mL [facility] 6+ [place] [facility] (FLUZONE/FLULAVAL/FL UARIX) Hep B, Unspecified Unknown Completed Univer sity of Formulation [facility] HEPATITIS A Unknown Completed [facility] HEPATITIS A Unknown Completed [facility] Hep B, Unspecified Unknown Completed Univer sity of Formulation [facility] Hep B, Adol or Pedi Unknown Completed Unive rsity of Dosage [facility] Hep B, Adol or Pedi Unknown Completed Unive rsity of Dosage [facility] Hep B, Adol or Pedi Unknown Completed Unive rsity of Dosage [facility] Heamophilus Unknown Completed [facility] Influenza B [facility] Heamophilus Unknown Completed [facility] Influenza B [facility] Heamophilus Unknown Completed [facility] Influenza B [facility] Heamophilus Unknown Completed [facility] Influenza B [facility] Hib-HbOC Unknown Completed [facility] Hib-HbOC Unknown Completed [facility] Hib-HbOC Unknown Completed [facility] Hib-HbOC Unknown Completed [facility] HPV Unknown Completed [facility] HPV Unknown Completed [facility] HPV Unknown Completed [facility] Meningococcal Unknown Completed [facility] (groups A, C, Y and Branc h W-135) conjugate vaccine (MCV4P) MMR Unknown Completed [facility] MMR Unknown Completed [facility] Poliovirus, Live, Unknown Completed Univers ity of Oral, Trivalent [facility] Poliovirus, Live, Unknown Completed [facility] Poliovirus, Live, Unknown Completed Univers ity of Oral, Trivalent [facility] Poliovirus, Live, Unknown Completed [facility], [facility] Tetanus/Diptheria Unknown Completed [facility] Unknown Completed [facility] Varicella Unknown Completed [facility] (varivax)(chicken [place] [facility] pox) [facility] Varicella Unknown Completed [facility] (varivax)(chicken [place] [facility] pox) Branch PFIZER COVID-19 MRNA Unknown Completed [facility] PFIZER COVID-19 MRNA Unknown Completed [facility] PFIZER COVID-19 MRNA Unknown Completed [facility] PFIZER COVID-19 MRNA Unknown Completed [facility] PFIZER COVID-19 MRNA Unknown Completed [facility] PFIZER COVID-19 MRNA Unknown Completed [facility] PFIZER COVID-19 MRNA Unknown Completed [facility] PFIZER COVID-19 MRNA Unknown Completed [facility] PFIZER COVID-19 MRNA Unknown Completed [facility] PFIZER COVID-19 MRNA Unknown Completed [facility] VACCINATION [facility] PFIZER COVID-19 MRNA Unknown Completed [facility] PFIZER COVID-19 MRNA Unknown Completed [facility] Vital Signs Vital Name Observation Time Observation Value Comments Source Systolic blood 2023-07-05 114 mm[Hg] University pressure 17:46:17 [facility] Diastolic blood 2023-07-05 94 mm[Hg] University o f pressure 17:46:17 [facility] Heart rate 2023-07-05 93 /min University of 17:46:17 [facility] Body temperature 2023-07-05 37 Alisha University of 17:46:17 [facility] Respiratory rate 2023-07-05 16 /min University of 17:46:17 [facility] Body height 2023-07-05 160 cm University of 17:44:00 [facility] Body weight 2023-07-05 67.586 kg University of 17:44:00 [facility] BMI 2023-07-05 26.39 kg/m2 University of 17:44:00 [facility] Oxygen saturation 2023-07-05 100 /min University of in Arterial blood 17:44:00 [place] [facility] Pulse oximetry [facility] Systolic blood 2023-07-01 116 mm[Hg] University of pressure 16:23:00 [facility] Diastolic blood 2023-07-01 76 mm[Hg] University o f pressure 16:23: [facility] Heart rate 2023-07-01 66 /min University of 16:23:00 [facility] Body temperature 2023-07-01 36.28 Alisha University of 16:23:00 [facility] Respiratory rate 2023-07-01 18 /min University of 16:23:00 [facility] Body height 2023-07-01 160 cm University of 16:23:00 [facility] Body weight 2023-07-01 70.852 kg University of 16:23:00 [facility] BMI 2023-07-01 27.67 kg/m2 University of 16:23:00 [facility] Oxygen saturation 2023-07-01 100 /min University of in Arterial blood 16:23:00 [place] [facility] Pulse oximetry [facility] Systolic blood 2023-06-29 120 mm[Hg] University of pressure 18:40:00 [facility] Diastolic blood 2023-06-29 82 mm[Hg] University o f pressure 18:40:00 [facility] Heart rate 2023-06-29 81 /min University of 18:40:00 [facility] Body temperature 2023-06-29 36.5 Alisha University of 18:40:00 [facility] Respiratory rate 2023-06-29 18 /min University of 18:40:00 [facility] Body height 2023-06-29 160 cm University of 18:40:00 [facility] Body weight 2023-06-29 67.586 kg University of 18:40:00 [facility] BMI 2023-06-29 26.39 kg/m2 University of 18:40:00 [facility] Oxygen saturation 2023-06-29 100 /min University of in Arterial blood 18:40:00 [place] [facility] Pulse oximetry [facility] Systolic blood 2023-06-10 133 mm[Hg] University of pressure 15:38:00 [facility] Diastolic blood 2023-06-10 78 mm[Hg] University o f pressure 15:38:00 [facility] Heart rate 2023-06-10 90 /min University of 15:38:00 [facility] Body height 2023-06-10 160 cm University of 15:38:00 [facility] Body weight 2023-06-10 69.627 kg University of 15:38:00 [facility] BMI 2023-06-10 27.19 kg/m2 University of 15:38:00 [facility] Oxygen saturation 2023-06-10 99 /min University of in Arterial blood 15:38:00 [place] [facility] Pulse oximetry [facility] Systolic blood 2023-03-02 133 mm[Hg] University of pressure 17:25:00 [facility] Diastolic blood 2023-03-02 79 mm[Hg] University o f pressure 17:25:00 [facility] Heart rate 2023-03-02 86 /min University of 17:25:00 [facility] Body temperature 2023-03-02 36.67 Alisha University of 17:25:00 [facility] Respiratory rate 2023-03-02 16 /min University of 17:25:00 [facility] Body height 2023-03-02 160 cm University of 17:25:00 [facility] Body weight 2023-03-02 69.627 kg University of 17:25:00 [facility] BMI 2023-03-02 27.19 kg/m2 University of 17:25:00 [facility] Oxygen saturation 2023-03-02 97 /min University of in Arterial blood 17:25:00 [place] [facility] Pulse oximetry [facility] Systolic blood 2023-01-21 156 mm[Hg] University of pressure 23:13:33 [facility] Diastolic blood 2023-01-21 100 mm[Hg] University o f pressure 23:13:33 [facility] Heart rate 2023-01-21 88 /min University of 23:13:33 [facility] Respiratory rate 2023-01-21 20 /min University of 23:13:33 [facility] Oxygen saturation 2023-01-21 100 /min University of in Arterial blood 23:13:33 [place] [facility] Pulse oximetry [facility] Body height 2023-01-21 160 cm University of 18:44:00 [facility] Body weight 2023-01-21 69.854 kg University of 18:44:00 [facility] BMI 2023-01-21 27.28 kg/m2 University of 18:44:00 [facility] Body temperature 2023-01-21 37.11 Alisha University of 18:43:00 [facility] Systolic blood 2023-01-15 121 mm[Hg] University of pressure 18:01:00 [facility] Diastolic blood 2023-01-15 81 mm[Hg] University o f pressure 18:01:00 [facility] Heart rate 2023-01-15 83 /min University of 18:01:00 [facility] Respiratory rate 2023-01-15 16 /min University of 18:01:00 [facility] Oxygen saturation 2023-01-15 97 /min University of in Arterial blood 18:01:00 [facility] by Pulse oximetry Branch Body temperature 2023-01-15 36.89 Alisha University of 14:55:07 [facility] Body weight 2023-01-15 68.04 kg University of 13:47:00 [facility] BMI 2023-01-15 26.57 kg/m2 University of 13:47:00 [facility] Systolic blood 2023-01-15 131 mm[Hg] University of pressure 10:13:00 [facility] Diastolic blood 2023-01-15 83 mm[Hg] University o f pressure 10:13:00 [facility] Heart rate 2023-01-15 104 /min University of 10:13:00 [facility] Body temperature 2023-01-15 36.94 Alisha University of 10:13:00 [facility] Respiratory rate 2023-01-15 21 /min University of 10:13:00 [facility] Body height 2023-01-15 160 cm University of 10:13:00 [facility] Body weight 2023-01-15 68.04 kg University of 10:13:00 [facility] BMI 2023-01-15 26.57 kg/m2 University of 10:13:00 [facility] Oxygen saturation 2023-01-15 100 /min University of in Arterial blood 10:13:00 [facility] shanice by Pulse oximetry Branch Systolic blood 2022-12-31 128 mm[Hg] University of pressure 05:09:00 [facility] Diastolic blood 2022-12-31 79 mm[Hg] University o f pressure 05:09:00 [facility] Heart rate 2022-12-31 71 /min University of 05:09:00 [facility] Body temperature 2022-12-31 36.78 Alisha University of 05:09:00 [facility] Respiratory rate 2022-12-31 16 /min University of 05:09:00 [facility] Body height 2022-12-31 160 cm University of 05:09:00 [facility] Body weight 2022-12-31 67.586 kg University of 05:09:00 [facility] BMI 2022-12-31 26.39 kg/m2 University of 05:09:00 [facility] Oxygen saturation 2022-12-31 100 /min University of in Arterial blood 05:09:00 [facility] by Pulse oximetry Branch Systolic blood 2022-12-22 132 mm[Hg] University of pressure 13:18: [facility] Diastolic blood 2022-12-22 92 mm[Hg] University o f pressure 13:18:00 [facility] Heart rate 2022-12-22 78 /min University of 13:18:00 [facility] Respiratory rate 2022-12-22 18 /min University of 13:18:00 [facility] Body height 2022-12-22 160 cm University of 13:18:00 [facility] Body weight 2022-12-22 69.4 kg University of 13:18: [facility] BMI 2022-12-22 27.10 kg/m2 University of 13:18:00 [facility] Systolic blood 2022-12-19 102 mm[Hg] University of pressure 10:00:00 [facility] Diastolic blood 2022-12-19 60 mm[Hg] University o f pressure 10:00:00 [facility] Heart rate 2022-12-19 85 /min University of 10:00:00 [facility] Respiratory rate 2022-12-19 13 /min University of 10:00:00 [facility] Oxygen saturation 2022-12-19 96 /min University of in Arterial blood 10:00:00 [facility] by Pulse oximetry Branch Body temperature 2022-12-19 36.28 Alisha University of 07:30:00 [facility] Body height 2022-12-19 160 cm University of 07:30: [facility] Body weight 2022-12-19 67.132 kg University of 07:30:00 [facility] BMI 2022-12-19 26.22 kg/m2 University of 07:30:00 [facility] Systolic blood 2022-12-15 125 mm[Hg] University of pressure 15:48:00 [facility] Diastolic blood 2022-12-15 77 mm[Hg] University o f pressure 15:48:00 [facility] Heart rate 2022-12-15 75 /min University of 15:48:00 [facility] Body height 2022-12-15 160 cm University of 15:48:00 [facility] Body weight 2022-12-15 68.448 kg University of 15:48:00 [facility] BMI 2022-12-15 26.73 kg/m2 University of 15:48:00 [facility] Oxygen saturation 2022-12-15 98 /min University of in Arterial blood 15:48:00 [facility] by Pulse oximetry Branch Systolic blood 2022-12-14 132 mm[Hg] University of pressure 08:04:00 [facility] Diastolic blood 2022-12-14 87 mm[Hg] University o f pressure 08:04:00 [facility] Heart rate 2022-12-14 83 /min University of 08:04:00 [facility] Body temperature 2022-12-14 36.67 Alisha University of 08:04:00 [facility] Respiratory rate 2022-12-14 20 /min University of 08:04:00 [facility] Body height 2022-12-14 160 cm University of 08:04:00 [facility] Body weight 2022-12-14 67.132 kg University of 08:04:00 [facility] BMI 2022-12-14 26.22 kg/m2 University of 08:04:00 [facility] Oxygen saturation 2022-12-14 97 /min University of in Arterial blood 08:04:00 [facility] shanice by Pulse oximetry Branch Systolic blood 2022-11-03 143 mm[Hg] University of pressure 17:45:00 [facility] Diastolic blood 2022-11-03 89 mm[Hg] University o f pressure 17:45:00 [facility] Heart rate 2022-11-03 89 /min University of 17:45:00 [facility] Respiratory rate 2022-11-03 16 /min University of 17:45:00 [facility] Oxygen saturation 2022-11-03 99 /min University of in Arterial blood 17:45:00 [facility] shanice by Pulse oximetry Branch Body temperature 2022-11-03 36.61 Alisha University of 14:13:00 [facility] Body height 2022-11-03 160 cm University of 14:13:00 [facility] Body weight 2022-11-03 68.04 kg University of 14:13:00 [facility] BMI 2022-11-03 26.57 kg/m2 University of 14:13:00 [facility] Systolic blood 2022-10-28 115 mm[Hg] University of pressure 21:02:00 [facility] Diastolic blood 2022-10-28 69 mm[Hg] University o f pressure 21:02:00 [facility] Heart rate 2022-10-28 93 /min University of 21:02:00 [facility] Body temperature 2022-10-28 36.89 Alisha University of 21:02:00 [facility] Body height 2022-10-28 160 cm University of 21:02:00 [facility] Body weight 2022-10-28 70.308 kg University of 21:02:00 [facility] BMI 2022-10-28 27.46 kg/m2 University of 21:02:00 [facility] Oxygen saturation 2022-10-28 100 /min University of in Arterial blood 21:02:00 [facility] shanice by Pulse oximetry Branch Systolic blood 2022-10-13 133 mm[Hg] University of pressure 07:58:00 [facility] Diastolic blood 2022-10-13 72 mm[Hg] University o f pressure 07:58:00 [facility] Heart rate 2022-10-13 109 /min University of 07:58:00 [facility] Body temperature 2022-10-13 36.78 Alisha University of 07:58:00 [facility] Respiratory rate 2022-10-13 16 /min University of 07:58:00 [facility] Body weight 2022-10-13 67.132 kg University of 07:58:00 [facility] BMI 2022-10-13 26.22 kg/m2 University of 07:58:00 [facility] Oxygen saturation 2022-10-13 99 /min University of in Arterial blood 07:58:00 [place] [facility] Pulse oximetry [facility] Systolic blood 2022-10-10 120 mm[Hg] University of pressure 00:44:00 [facility] Diastolic blood 2022-10-10 82 mm[Hg] University o f pressure 00:44:00 [facility] Heart rate 2022-10-10 110 /min University of 00:44:00 [facility] Body temperature 2022-10-10 36.33 Alisha University of 00:44:00 [facility] Respiratory rate 2022-10-10 18 /min University of 00:44:00 [facility] Body height 2022-10-10 160 cm University of 00:44:00 [facility] Body weight 2022-10-10 67.132 kg University of 00:44:00 [facility] BMI 2022-10-10 26.22 kg/m2 University of 00:44:00 [facility] Oxygen saturation 2022-10-10 99 /min University of in Arterial blood 00:44:00 [place] [facility] Pulse oximetry [facility] Systolic blood 2022-09-10 165 mm[Hg] University of pressure 00:13:00 [facility] Diastolic blood 2022-09-10 99 mm[Hg] University o f pressure 00:13:00 [facility] Heart rate 2022-09-10 125 /min University of 00:13:00 [facility] Body temperature 2022-09-10 36.61 Alisha University of 00:13:00 [facility] Respiratory rate 2022-09-10 20 /min University of 00:13:00 [facility] Body weight 2022-09-10 65.772 kg University of 00:13:00 [facility] BMI 2022-09-10 25.69 kg/m2 University of 00:13:00 [facility] Oxygen saturation 2022-09-10 99 /min University of in Arterial blood 00:13:00 [place] [facility] Pulse oximetry [facility] Systolic blood 2022-08-18 134 mm[Hg] University of pressure 22:36:00 [facility] Diastolic blood 2022-08-18 86 mm[Hg] [place] o f pressure 22:36:00 [facility] Heart rate 2022-08-18 100 /min University :36:00 [facility] Body temperature 2022-08-18 37.11 Alisha University 22:36:00 [facility] Respiratory rate 2022-08-18 20 /min University 22:36:00 [facility] Body height 2022-08-18 160 cm University 22:36:00 [facility] Body weight 2022-08-18 67.132 kg University 22:36:00 [facility] BMI 2022-08-18 26.22 kg/m2 [facility] 22:36:00 [facility] Oxygen saturation 2022-08-18 100 /min [facility] Healthcare in Arterial blood 22:36:00 [facility] by Pulse oximetry [place] Systolic blood 2022-01-20 123 mm[Hg] [facility] pressure 18:11:00 [facility] Diastolic blood 2022-01-20 85 mm[Hg] [facility] pressure 18:11:00 Hospital Heart rate 2022-01-20 88 /min [facility] 18:11:00 Hospital Body temperature 2022-01-20 36.28 Alisha [facility] 18:11:00 Hospital Respiratory rate 2022-01-20 20 /min [facility] 18:11:00 Hospital Body height 2022-01-20 160 cm [facility] 18:11:00 Hospital Body weight 2022-01-20 66.225 kg [facility] 18:11:00 Hospital BMI 2022-01-20 25.86 kg/m2 [facility] 18:11:00 Hospital Oxygen saturation 2022-01-20 99 /min [facility] in Arterial blood 18:11:00 Hospital by Pulse [...] Systolic blood 2020-01-31 108 mm[Hg] Location: RUE; [facility] pressure 08:57:00 Position: Sitting Diastolic blood 2020-01-31 76 mm[Hg] Location: RUE; [facility] pressure 08:57:00 Position: Sitting Body [...] Physicians 16:12:00 BP Diastolic 2018-09-07 88 mm[Hg] [facility] 16:12:00 Height 2018-09-07 67 [in_us] [facility] 16:12:00 Weight 2018-09-07 159 [lb_av] [facility] 16:12:00 Body Mass Index 2018-09-07 24.9 kg/m2 [facility] Calculated 16:12:00 Heart Rate 2018-09-07 109 /min [facility] 16:12:00 Procedures Procedure Date / Time Performing Clinician Source Performed CBC WITH DIFF 2023-07-05 18:17:[address] [facility] POCT TEST 2023-07-05 18:05:00 Lazarus Donta [facility] CONSENT/REFUSAL FOR 2023-07-05 17:29:05 Doctor Unassigned, No [facility] CT ABDOMEN PELVIS W 2023-01-21 21:07:22 [facility] CONTRAST [facility] POCT TEST 2023-01-21 19:34:00 Gutierrez Moncada [facility] LIPASE 2023-01-21 19:32:00 Gutierrez Moncada [facility] TROPONIN I 2023-01-21 19:32:00 Pollo Joe [facility] COMP. METABOLIC PANEL 2023-01-21 19:32:00 Gutierrez Moncada [facility] ([id number]) [facility] CBC WITH DIFF 2023-01-21 19:32:00 Gutierrez Moncada [facility] URINALYSIS 2023-01-21 19:32:00 Gutierrez Moncada [facility] CONSENT/REFUSAL FOR 2023-01-21 18:36:13 Doctor Unassigned, No [facility] Name Medical Branch LIPASE 2023-01-15 14:47:00 Brant Lal [facility] COMP. METABOLIC PANEL 2023-01-15 14:47:00 Brant Lal [facility] ([id number]) [facility] CBC WITH DIFF 2023-01-15 14:47:00 Brant Lal [place] [facility] Medical Branch CONSENT/REFUSAL FOR 2023-01-15 13:41:26 Doctor Unassigned, No [facility] [place] [facility] Name [facility] CONSENT/REFUSAL FOR 2023-01-15 10:06:16 Doctor Unassigned, No [facility] [place] [facility]REAT[facility] Name Medical Branch EXTERNAL PROVIDER 2023-01-07 05:01:00 Doctor Unassigned, No [facility] [place] RECORDS Name [facility] EXTERNAL PROVIDER 2023-01-04 05:01:00 Doctor Unassigned, No [facility] [place] RECORDS Name [facility] CONSENT/REFUSAL FOR 2022-12-31 05:04:15 Doctor Unassigned, No [facility] [place] [facility]REAT[facility] Name [facility] CT ANGIOGRAPHY 2022-12-30 17:15:00 [facility] CORONARIES WITHOUT Medical Bran h CARDIAC CALCIUM SCORING HB CREATININE 2022-12-30 16:24:00 [facility] SERUM/BLOOD FOR IMAGING Medical Branch CONSENT/REFUSAL FOR 2022-12-30 15:17:01 Doctor Unassigned, No [facility] [place] [facility]NOS[facility] TREATMENT Name Medical Branch EXTERNAL PROVIDER 2022-12-29 05:01:00 Doctor Unassigned, No [facility] [place] RECORDS Name Medical [facility] AUTHORIZATION TO RELEASE 2022-12-21 05:01:00 Doctor Unassigned, No [facility] PHI TO [facility] Name Medical Branch CT ANGIOGRAM CHEST 2022-12-19 09:28:16 Miladys [facility] TROPONIN I 2022-12-19 08:40:00 Miladys Medina [facility] Branch D-DIMER 2022-12-19 08:40:00 Miladys Medina [facility] Medical [place] CONSENT/REFUSAL FOR 2022-12-19 07:30:10 Doctor Unassigned, No [facility] [place] DIAGNOSIS AND TREATMENT Name Medical Branch D-DIMER 2022-12-14 10:47:00 Miladys Medina [facility] [place] TROPONIN I 2022-12-14 10:16:00 Miladys Medina [facility] LIPASE 2022-12-14 08:31:00 Miladys Medina [facility] TROPONIN I 2022-12-14 08:31:00 Miladys Medina [facility] COMP. METABOLIC PANEL 2022-12-14 08:31:00 Miladys Medina [facility] ([id number]) Medical [place] CBC WITH DIFF 2022-12-14 08:31:00 Miladys Medina [facility] THYROID STIMULATING 2022-12-14 08:31:00 Amrit Ma [facility] HORMONE [facility] NOTICE OF PRIVACY 2022-12-14 07:50:02 Doctor Unassigned, No [facility] PRACTICES [facility] CONSENT/REFUSAL FOR 2022-12-14 07:49:31 Doctor Unassigned, No [facility] [place] [facility] TREATMENT [facility] URINALYSIS 2022-11-03 15:27:00 Gaurang Dotson [facility] URINE DRUG (IMMUNOASSAY) 2022-11-03 15:27:00 Gaurang Dotson [facility] SCREEN W/O REFLEX TEST, SERUM 2022-11-03 14:38:00 Gaurang Dotson [facility] COMP. METABOLIC PANEL 2022-11-03 14:38:00 Gaurang Dotson [facility] ([id number]) [facility] CBC WITH DIFF 2022-11-03 14:38:00 Gaurang Dotson [facility] D-DIMER 2022-11-03 14:38:00 Gaurang Dotson [facility] CONSENT/REFUSAL FOR 2022-11-03 14:04:36 Doctor Unassigned, No [facility] [place] DIAGNOSIS AND TREATMENT Name Medical Branch CONSENT/REFUSAL FOR 2022-10-28 20:34:23 Doctor Unassigned, No [facility] [place] DIAGNOSIS AND TREATMENT [facility] Medical Branch CONSENT/REFUSAL FOR 2022-10-13 07:49:25 Doctor Unassigned, No [facility] Medical Branch CONSENT/REFUSAL FOR 2022-10-10 00:16:57 Doctor Unassigned, No [facility] [place] DIAGNOSIS [facility] TREATMENT Name Medical Branch MRI LUMBAR SPINE WO 2022-10-07 00:35:00 Jorge Luis Mcdonnell [facility] CONTRAST MRI CERVICAL SPINE WO 2022-10-07 00:22:00 Brian Mcdonnellvgeniy [facility] CONTRAST CONSENT/REFUSAL FOR 2022-09-10 00:07:30 Doctor Unassigned, No [facility] [place] DIAGNOSIS AND TREATMENT Name Medical Branch CONSENT/REFUSAL FOR 2022-08-18 22:20:24 Doctor Unassigned, No [facility] [place] [facility] TREATMENT Name Medical Branch CT SPINE EXTERNAL STUDY 2021-11-28 20:02:[address] [facility] [address] SPINE EXTERNAL STUDY 2021-11-28 19:57:[address] [facility] [address] SPINE EXTERNAL STUDY 2021-11-28 19:52:18 [facility] REFERRAL- 2021-11-21 05:01:00 Doctor Unassigned, No [facility] [place] REQUEST/RESPONSE Name Medical Branch MRI SPINE EXTERNAL STUDY 2021-10-09 18:17:21 [facility] (INCLUDES 2020-02-16 00:00:00 [facility] DIFF/PLT) EMB 2020-02-14 00:00:00 [facility] Mell [facility] - Affirm VPIII 2020-02-14 00:00:00 [facility] (BV Panel) . [facility] - GC/Chlamydia 2020-02-14 00:00:00 [facility] [QL] CBC (INCLUDES 2020-02-14 00:00:00 [facility] DIFF/PLT) [QL] AMYLASE 2020-02-14 00:00:00 [facility] [QL] LIPASE 2020-02-14 00:00:00 [facility] - Affirm VPIII 2020-01-31 00:00:00 [facility] (BV Panel) . [facility] - GC/Chlamydia 2020-01-31 00:00:00 [facility] [QL] CBC (INCLUDES 2020-01-31 00:00:00 [facility] DIFF/PLT) [[facility]] CULTURE, URINE, 2019-06-28 00:00:00 [facility] ROUTINE . [facility] - PAP w/reflex 2019-06-28 00:00:00 [facility] HPV US Pelvic with 2019-06-28 00:00:00 [facility] Transvaginal and Pelvic Doppler [id number] History of Dental [facility] surgery History of [facility] section low transverse Plan of Care Planned Activity Planned Date Details Comments Source Future Scheduled 2023-07-01 Pneumococcal Vaccine: [facility] Test 21:11:54 Pediatrics (0 to 5 Years) and At-Risk Patients (6 to 64 Years) (1 - PCV) [code = Pneumococcal Vaccine: Pediatrics (0 to 5 Years) and At-Risk Patients (6 to 64 Years) (1 - PCV)] Future Scheduled 2023-07-01 Hepatitis C screening [facility] Test 21:11:54 (procedure) [code = 774952209] Future Scheduled 2023-07-01 [facility] for [facility] Test 21:11:54 malignant neoplasm of cervix (procedure) [code = 541406828] Future Scheduled 2023-07-01 COVID-19 VACCINE (3 - [facility] Test 21:11:54 season) [code = COVID-19 VACCINE (3 - season)] Future Scheduled 2023-07-01 INFLUENZA VACCINE (#1) [facility] Test 21:11:54 [code = INFLUENZA VACCINE (#1)] Future Scheduled 2023-07-01 Pneumococcal Vaccine: [facility] Test 21:11:54 Pediatrics (0 to 5 Years) and At-Risk Patients (6 to 64 Years) (1 - PCV) [code = Pneumococcal Vaccine: Pediatrics (0 to 5 Years) and At-Risk Patients (6 to 64 Years) (1 - PCV)] Future Scheduled 2023-07-01 Hepatitis C screening [facility] Test 21:11:54 (procedure) [code = 963414366] Future Scheduled 2023-07-01 [facility] Test 21:11:54 malignant neoplasm of cervix (procedure) [code = 047735622] Future Scheduled 2023-07-01 COVID-19 VACCINE ([facility] - [facility] 21:11:54 ) [code = COVID-19 VACCINE ( season)] Future Scheduled 2023-07-01 [facility]ACC[facility] Test 21:11:54 [code = INFLUENZA VACCINE (#1)] Future Scheduled 2023-07-01 Pneumococcal Vaccine: [facility] Test 21:11:54 Pediatrics (0 to 5 Years) and At-Risk Patients (6 to 64 Years) (1 - PCV) [code = Pneumococcal Vaccine: Pediatrics (0 to 5 Years) and At-Risk Patients (6 to 64 Years) (1 - PCV)] Future Scheduled 2023-07-01 Hepatitis C screening [facility] Test 21:11:54 (procedure) [code = 153252527] Future Scheduled 2023-07-01 [facility] for [facility] Test 21:11:54 malignant neoplasm of cervix (procedure) [code = 747599015] Future Scheduled 2023-07-01 COVID-19 VACCINE (3 - [facility] Test 21:11:54 ) [code = COVID-19 VACCINE ()] Future Scheduled 2023-07-01 [facility] VACCINE (#[facility]) [facility] Test 21:11:54 [code = INFLUENZA VACCINE (#1)] Future Scheduled 2023-07-01 Pneumococcal Vaccine: [facility] Test 21:11:54 Pediatrics (0 to 5 Years) and At-Risk Patients (6 to 64 Years) (1 - PCV) [code = Pneumococcal Vaccine: Pediatrics (0 to 5 Years) and At-Risk Patients (6 to 64 Years) (1 - PCV)] Future Scheduled 2023-07-01 Hepatitis C screening [facility] Test 21:11:54 (procedure) [code = 739882364] Future Scheduled 2023-07-01 [facility] for [facility] Test 21:11:54 malignant neoplasm of cervix (procedure) [code = 760728456] Future Scheduled 2023-07-01 COVID-19 VACCINE (3 - [facility] Test 21:11:54 ) [code = COVID-19 VACCINE ()] Future Scheduled 2023-07-01 INFLUENZA VACCINE (#1) [facility] Test 21:11:54 [code = INFLUENZA VACCINE (#1)] Future Scheduled 2023-06-18 Pneumococcal Vaccine: [facility] Test 03:36:13 Pediatrics (0 to 5 Years) and At-Risk Patients (6 to 64 Years) (1 - PCV) [code = Pneumococcal Vaccine: Pediatrics (0 to 5 Years) and At-Risk Patients (6 to 64 Years) (1 - PCV)] Future Scheduled 2023-06-18 Hepatitis C screening [facility] Test 03:36:13 (procedure) [code = 154518887] Future Scheduled 2023-06-18 Screening for [facility] Test 03:36:13 malignant neoplasm of cervix (procedure) [code = 940871814] Future Scheduled 2023-06-18 COVID-19 VACCINE (3 - [facility] Test 03:36:13 season) [code = COVID-19 VACCINE ( - season)] Future Scheduled 2023-06-18 INFLUENZA VACCINE (#1) [facility] Test 03:36:13 [code = INFLUENZA VACCINE (#1)] Future Scheduled 2023-06-18 RSV VACCINES > 60 YR Met [facility] Test 03:36:13 (1 - 1-dose 60+ series) [code = RSV VACCINES > 60 YR (1 - 1-dose 60+ series)] Future Scheduled 2023-06-12 Pneumococcal Vaccine: [facility] Test 08:20:18 Pediatrics (0 to 5 Years) and At-Risk Patients (6 to 64 Years) (1 - PCV) [code = Pneumococcal Vaccine: Pediatrics (0 to 5 Years) and At-Risk Patients (6 to 64 Years) (1 - PCV)] Future Scheduled 2023-06-12 Hepatitis C screening [facility] Test 08:20:18 (procedure) [code = 870338233] Future Scheduled 2023-06-12 Screening for [facility] Test 08:20:18 malignant neoplasm of cervix (procedure) [code = 800490529] Future Scheduled 2023-06-12 COVID-19 VACCINE (3 - [facility] Test 08:20:18 Pfizer series) [code = COVID-19 VACCINE (3 - Pfizer series)] Future Scheduled 2023-06-12 [facility]ACCINE (#[facility]) [facility] 08:20:18 [code = INFLUENZA VACCINE (#1)] Future Scheduled 2023-02-19 Pneumococcal Vaccine: [facility] Test 07:49:13 Pediatrics (0 to 5 Years) and At-Risk Patients (6 to 64 Years) (1 - PCV) [code = Pneumococcal Vaccine: Pediatrics (0 to 5 Years) and At-Risk Patients (6 to 64 Years) (1 - PCV)] Future Scheduled 2023-02-19 Hepatitis C screening [facility] Test 07:49:13 (procedure) [code = 251930967] Future Scheduled 2023-02-19 [facility]ening for [facility] Test 07:49:13 malignant neoplasm of cervix (procedure) [code = 011624077] Future Scheduled 2023-02-19 COVID-19 VACCINE (3 - [facility] Test 07:49:13 Pfizer series) [code = COVID-19 VACCINE (3 - Pfizer series)] Future Scheduled 2023-02-19 INFLUENZA VACCINE [facility] Test 07:49:13 [code = INFLUENZA VACCINE] Future Scheduled 2023-02-19 Pneumococcal Vaccine: [facility] Test 07:49:13 Pediatrics (0 to 5 Years) and At-Risk Patients (6 to 64 Years) (1 - PCV) [code = Pneumococcal Vaccine: Pediatrics (0 to 5 Years) and At-Risk Patients (6 to 64 Years) (1 - PCV)] Future Scheduled 2023-02-19 Hepatitis C screening [facility] Test 07:49:13 (procedure) [code = 872950263] Future Scheduled 2023-02-19 [facility] for [facility] Test 07:49:13 malignant neoplasm of cervix (procedure) [code = 445699211] Future Scheduled 2023-02-19 COVID-19 VACCINE (3 - [facility] Test 07:49:13 Pfizer series) [code = COVID-19 VACCINE (3 - Pfizer series)] Future Scheduled 2023-02-19 INFLUENZA VACCINE [facility] Test 07:49:13 [code = INFLUENZA VACCINE] Future Scheduled 2023-02-19 Pneumococcal Vaccine: [facility] Test 07:49:13 Pediatrics (0 to 5 Years) and At-Risk Patients (6 to 64 Years) (1 - PCV) [code = Pneumococcal Vaccine: Pediatrics (0 to 5 Years) and At-Risk Patients (6 to 64 Years) (1 - PCV)] Future Scheduled 2023-02-19 [facility] 07:49:13 (procedure) [code = 186565025] Future Scheduled 2023-02-19 [facility] for [facility] Test 07:49:13 malignant neoplasm of cervix (procedure) [code = 666683013] Future Scheduled 2023-02-19 COVID-19 VACCINE (3 - [facility] Test 07:49:13 Pfizer series) [code = COVID-19 VACCINE (3 - Pfizer series)] Future Scheduled 2023-02-19 INFLUENZA VACCINE [facility] Test 07:49:13 [code = INFLUENZA VACCINE] Future Scheduled 2023-02-19 Pneumococcal Vaccine: [facility] Test 07:49:13 Pediatrics (0 to 5 Years) and At-Risk Patients (6 to 64 Years) (1 - PCV) [code = Pneumococcal Vaccine: Pediatrics (0 to 5 Years) and At-Risk Patients (6 to 64 Years) (1 - PCV)] Future Scheduled 2023-02-19 Hepatitis C screening [facility] Test 07:49:13 (procedure) [code = 036923944] Future Scheduled 2023-02-19 [facility] for [facility] Test 07:49:13 malignant neoplasm of cervix (procedure) [code = 237010114] Future Scheduled 2023-02-19 COVID-19 VACCINE (3 - [facility] Test 07:49:13 Pfizer series) [code = COVID-19 VACCINE (3 - Pfizer series)] Future Scheduled 2023-02-19 INFLUENZA VACCINE [facility] Test 07:49:13 [code = INFLUENZA VACCINE] Future Scheduled 2022-12-30 Pneumococcal Vaccine: [facility] Test 10:15:19 Pediatrics (0 to 5 Years) and At-Risk Patients (6 to 64 Years) (1 - PCV) [code = Pneumococcal Vaccine: Pediatrics (0 to 5 Years) and At-Risk Patients (6 to 64 Years) (1 - PCV)] Future Scheduled 2022-12-30 Hepatitis C screening [facility] Test 10:15:19 (procedure) [code = 353693045] Future Scheduled 2022-12-30 [facility] for [facility] Test 10:15:19 malignant neoplasm of cervix (procedure) [code = 908225988] Future Scheduled 2022-12-30 COVID-19 VACCINE (3 - [facility] Test 10:15:19 Booster for Pfizer series) [code = COVID-19 VACCINE (3 - Booster for Pfizer series)] Future Scheduled 2022-12-30 INFLUENZA VACCINE [facility] Test 10:15:19 [code = INFLUENZA VACCINE] Future Scheduled 2022-12-30 Pneumococcal Vaccine: [facility] Test 10:15:19 Pediatrics (0 to 5 Years) and At-Risk Patients (6 to 64 Years) (1 - PCV) [code = Pneumococcal Vaccine: Pediatrics (0 to 5 Years) and At-Risk Patients (6 to 64 Years) (1 - PCV)] Future Scheduled 2022-12-30 Hepatitis C screening [facility] Test 10:15:19 (procedure) [code = 142777059] Future Scheduled 2022-12-30 [facility] for [facility] Test 10:15:19 malignant neoplasm of cervix (procedure) [code = 848235423] Future Scheduled 2022-12-30 COVID-19 VACCINE (3 - [facility] Test 10:15:19 Booster for Pfizer series) [code = COVID-19 VACCINE (3 - Booster for Pfizer series)] Future Scheduled 2022-12-30 INFLUENZA VACCINE [facility] Test 10:15:19 [code = INFLUENZA VACCINE] Future Scheduled 2022-12-30 Pneumococcal Vaccine: [facility] Test 10:15:19 Pediatrics (0 to 5 Years) and At-Risk Patients (6 to 64 Years) (1 - PCV) [code = Pneumococcal Vaccine: Pediatrics (0 to 5 Years) and At-Risk Patients (6 to 64 Years) (1 - PCV)] Future Scheduled 2022-12-30 Hepatitis C screening [facility] Test 10:15:19 (procedure) [code = 059196383] Future Scheduled 2022-12-30 [facility] Test 10:15:19 malignant neoplasm of cervix (procedure) [code = 227104105] Future Scheduled 2022-12-30 COVID-19 VACCINE (3 - [facility] Test 10:15:19 Booster for Pfizer series) [code = COVID-19 VACCINE (3 - Booster for Pfizer series)] Future Scheduled 2022-12-30 INFLUENZA VACCINE [facility] Test 10:15:19 [code = INFLUENZA VACCINE] Future Scheduled 2022-08-02 Pneumococcal Vaccine: [facility] Test 11:23:36 Pediatrics (0 to 5 Years) and At-Risk Patients (6 to 64 Years) (1 - PCV) [code = Pneumococcal Vaccine: Pediatrics (0 to 5 Years) and At-Risk Patients (6 to 64 Years) (1 - PCV)] Future Scheduled 2022-08-02 Hepatitis C screening [facility] Test 11:23:36 (procedure) [code = 515677601] Future Scheduled 2022-08-02 [facility] Test 11:23:36 malignant neoplasm of cervix (procedure) [code = 311287645] Future Scheduled 2022-08-02 COVID-19 VACCINE (3 - [facility] Test 11:23:36 Booster for Pfizer series) [code = COVID-19 VACCINE (3 - Booster for Pfizer series)] Future Scheduled 2022-08-02 INFLUENZA VACCINE [facility] Test 11:23:36 [code = INFLUENZA VACCINE] Future Scheduled 2022-07-24 Pneumococcal Vaccine: [facility] Test 21:51:51 Pediatrics (0 to 5 Years) and At-Risk Patients (6 to 64 Years) (1 - PCV) [code = Pneumococcal Vaccine: Pediatrics (0 to 5 Years) and At-Risk Patients (6 to 64 Years) (1 - PCV)] Future Scheduled 2022-07-24 Hepatitis C screening [facility] Test 21:51:51 (procedure) [code = 781071625] Future Scheduled 2022-07-24 [facility] Test 21:51:51 malignant neoplasm of cervix (procedure) [code = 017119762] Future Scheduled 2022-07-24 COVID-19 VACCINE (3 - [facility] Test 21:51:51 Booster for Pfizer series) [code = COVID-19 VACCINE (3 - Booster for Pfizer series)] Future Scheduled 2022-07-24 INFLUENZA VACCINE [facility] Test 21:51:51 [code = INFLUENZA VACCINE] Future Scheduled 2022-07-15 Pneumococcal Vaccine: [facility] Test 15:03:03 Pediatrics (0 to 5 Years) and At-Risk Patients (6 to 64 Years) (1 - PCV) [code = Pneumococcal Vaccine: Pediatrics (0 to 5 Years) and At-Risk Patients (6 to 64 Years) (1 - PCV)] Future Scheduled 2022-07-15 Hepatitis C screening [facility] Test 15:03:03 (procedure) [code = 647480209] Future Scheduled 2022-07-15 [facility] Test 15:03:03 malignant neoplasm of cervix (procedure) [code = 576593591] Future Scheduled 2022-07-15 COVID-19 VACCINE (3 - [facility] Test 15:03:03 Booster for Pfizer series) [code = COVID-19 VACCINE (3 - Booster for Pfizer series)] Future Scheduled 2022-07-15 INFLUENZA VACCINE [facility] Test 15:03:03 [code = INFLUENZA VACCINE] Future Scheduled 2022 Pneumococcal Vaccine: [facility] Test 09:54:03 Pediatrics (0 to 5 Years) and At-Risk Patients (6 to 64 Years) (1 - PCV) [code = Pneumococcal Vaccine: Pediatrics (0 to 5 Years) and At-Risk Patients (6 to 64 Years) (1 - PCV)] Future Scheduled 2022 Hepatitis C screening [facility] Test 09:54:03 (procedure) [code = 826923821] Future Scheduled 2022 [facility] Test 09:54:03 malignant neoplasm of cervix (procedure) [code = 547913070] Future Scheduled 2022 COVID-19 VACCINE (3 - [facility] Test 09:54:03 Booster for Pfizer series) [code = COVID-19 VACCINE (3 - Booster for Pfizer series)] Future Scheduled 2022 INFLUENZA VACCINE [facility] Test 09:54:03 [code = INFLUENZA VACCINE] Encounters Start End Encounter Admission Attending Care Care Encounter Source Date/Time Date/Time Type Type Clinicians Facility Department ID 2021-07-06 Emergency [facility] [id number] [facility] 13:36:32 ity [facility] 2021-07-04 Emergency [facility] [id number] Univers 11:22:30 ity [facility] 2021-07-04 Emergency [facility] [id number] Univers 10:48:55 ity [facility] 2021-01-09 Inpatient [facility] MALIS[facility] [id number] [facility] 10:52:00 [id number] [facility] 2020-12-27 Inpatient [facility] MALISSA [id number] [facility] 20:29:[address] [facility] 2020-12-26 Inpatient CLAUDETTE Escobar, [facility] ENDO [id number] [facility] 10:00:[address] [facility] 2020-12-22 Inpatient [facility] [id number] [facility] 23:08:[address] [facility] 2020-08-23 Inpatient [facility] MALISSA [id number] [facility] 09:10:[address] [facility] 2020-08-05 Inpatient [facility] [id number] [facility] [id number] [facility] 10:04:01 [facility] 2023-07-16 2023-07-16 Outpatient MARINA WISDOM [facility] [id number] Univers 14:00:00 14:00:00 MARINA BERG [facility] 2023-07-09 2023-07-09 Outpatient LO TORRES [facility] [id number] Univers 10:00:00 10:00:00 LO HOUSTON [facility] 2023-07-05 2023-07-05 Emergency X LAZARUS [facility] ERT [id number] Univers 12:50:00 14:12:00 DONTA [facility] 2023-07-05 2023-07-05 Emergency [facility] 1.2.887.893 [id number] Univers 12:50:00 14:12:00 Donta GUERRERO 350.1.13.10 i ty of [place] 4.2.7.2.686 [place] [facility] [id number] [facility] [address] 2023-07-04 2023-07-04 Patient Doctor [facility] 1.2.840.114 [id number] Univers 00:00:00 00:00:00 Secure Msg Unassigned, HEALTH 350.1.13.10 ity of [place] 4.2.7.2.686 Zay as BLANCA?BLEA [phone] Ks denilson [address] MEDICAL OFFICE BUILDING 2023-07-02 2023-07-02 Telephone Gladis [facility] 1.2.840.114 [id number] Univers 00:00:00 00:00:00 Ranwi HEALTH 350.1.13.10 it y of [facility] 4.2.7.2.686 Zay as BLANCA?BLEA [phone] [address] OFFICE [facility] 2023-07-02 2023-07-02 Clinic [facility] 1.2.363.758 [id number] Univers 00:00:00 00:00:[address] [facility] 350.1.13.10 ity of [place] 4.2.7.2.686 Zay as BLANCA?BLEA [id number] [address] 2023-07-01 2023-07-01 Outpatient Anton GARCIA [facility] [id number] Univers 11:00:00 11:39:48 DEVANG calixto [facility] 2023-07-01 2023-07-01 Urgent Lori [facility] ..840.11 4 [id number] Univers 11:00:00 11:39:48 Care Unknown, Attending HEALTH 350.1.13.10 ity of [place] 4.2.7.2.686 Zay as BLANCA?BLEA [id number] [address] 2023-06-29 2023-06-29 Outpatient Anton GARCIA [facility] [id number] Univers 13:20:00 14:35:47 DEVANG calixto [facility] 2023-06-29 2023-06-29 Urgent Lori [facility] 1..840.11 4 [id number] Univers 13:20:00 14:35:47 Care Unknown, Attending HEALTH 350.1.13.10 ity of [place] 4.2.7.2.686 Zay as BLANCA?BLEA [id number] [address] 2023-06-29 2023-06-29 Outpatient CLAUDETTE AdamtSALENA [id number] [facility] 12:00:00 12:00:[address] 2023-06-10 2023-06-10 Outpatient R MARINA BERG [facility] [id number] Univers 10:40:00 11:18:23 MARINA BERG [facility] 2023-06-10 2023-06-10 Office [facility] 1.2.840.114 [id number] [facility] 10:40:00 11:18:23 Visit [facility] 350.1.13.10 ity of [facility] 4.2.7.2.686 Zay as BLANCA?BLEA [phone] Ks denilson [place] [address] [place] [address] OFFICE [facility] 2023-06-10 2023-06-10 Patient Ruth [facility] 1.2.840.114 [id number] Univers 00:00:00 00:00:00 Outreach Mindypiyush GUERRERO 350.1.13.10 ity [facility] 4.2.7.2.686 [place] [phone] Ks dicsc NAL [address] [place] [address] 2023-06-08 2023-06-08 Outpatient R ALEXSANDRAPiyush [facility] [id number] Univers 11:30:00 11:30:00 KAYLEY calixto [facility] 2023-05-27 2023-05-27 Telephone [facility] 1.2.496.673 [id number] [id number] Univers 00:00:00 00:00:00 Amrit GUERRERO 350.1.13.10 ity of [facility] 4.2.7.2.686 [place] [phone] Ks jackie[address] 2023-05-25 2023-05-25 [facility] 1.2.756.316 [id number] [id number] Univers 00:00:00 00:00:00 Amrit GUERRERO 350.1.13.10 ity of [place] 4.2.7.2.686 [place] [phone] Ks dicsc NAL [address] [place] [address] 2023-05-24 2023-05-24 Telephone [facility] 1.2.186.217 [id number] [id number] Univers 00:00:00 00:00:00 Amrit GUERRERO 350.1.13.10 ity of [place] 4.2.7.2.686 [place] PROFBRITTNIIO [phone] Ks dical NAL 059 [facility] 2023-05-19 2023-05-19 Telephone Graciela [facility] NEEL 1.2.840.114 10 [id number] Univers 00:00:00 00:00:00 Kayley GANDARA 350.1.13.10 it y of WOMEN'S 4.2.7.2.[address] [facility] [phone] [address] 2023-03-02 2023-03-02 Urgent Tami Alas [facility] 1.2.840.114 1 [id number] Univers 12:00:00 12:20:00 Care Unknown, [facility] 350.1.13.10 ity of [place] 4.2.7.2.686 Zay as BLANCA?BLEA [phone] [address] MEDICAL OFFICE [facility] 2023-03-02 2023-03-02 Outpatient R BISHOP [facility] [id number] Univers 12:00:00 12:00:00 [facility] 2023-03-02 2023-03-02 Letter [facility] 1.2.840.114 [id number] Univers 00:00:00 00:00:00 (Out) [facility] 350.1.13.10 it y of [facility] 4.2.7.2.686 Zay as BLANCA?BLEA [id number] [address] MEDICAL OFFICE [facility] 2023-01-21 2023-01-21 Emergency X [facility] ERT [id number] Univers 13:46:00 18:49:00 [facility]E [facility] 2023-01-21 2023-01-21 Emergency Poll[facility] 1.2.120.397 [id number] [id number] Univers 13:46:00 18:49:00 [facility] 350.1.13.10 it y of [place] 4.2.7.2.686 [place] [facility] [phone] [address] ([facility]) 2023-01-21 2023-01-21 Outpatient R KRISTY [facility] [id number] Univers 13:30:00 13:30:00 SMITHA calixto [facility] 2023-01-15 2023-01-15 Emergency X [facility] ERT [id number] Univers 08:50:00 13:10:00 BRANT [facility] 2023-01-15 2023-01-15 Emergency [facility] 1.2.511.818 [id number] [id number] Univers 08:50:00 13:10:00 Brant Avila [place] 350.1.13.10 i ty of [place] 4.2.7.2.686 [facility] [phone] [address] 2023-01-15 2023-01-15 Outpatient R COURTNEYKENZIE [facility] [id number] Univers 09:00:00 09:00:00 ity [facility] 2023-01-15 2023-01-15 Emergency X [facility] ERT [id number] Univers 05:24:00 06:28:00 MILADYS [facility] 2023-01-15 2023-01-15 Emergency [facility] 1.2.972.156 [id number] [id number] Univers 05:24:00 06:28:00 Miladys GARNERJUAREZ 350.1.13.10 ity of [place] 4.2.7.2.686 [facility] [phone] [address] 2023-01-12 2023-01-12 Outpatient R FELISHA [facility] [id number] Univers 10:30:00 10:30:00 JUANY y [facility] 2023-01-08 2023-01-08 Outpatient R FRANCESCA [facility] [id number] Univers 08:00:00 08:00:00 SENDIL ity [facility] 2023-01-07 2023-01-07 Orders Doctor HALEY 1.2.840.114 [id number] Univers 00:00:00 00:00:00 Only Unassigned, ALEM 350.1.13.10 ity of [facility] 4.2.7.2.686 Zay [id number] [place] [address] [place] 2023-01-04 2023-01-04 Orders Doctor HALEY 1.2.840.114 [id number] Univers 00:00:00 00:00:00 Only Unassigned, ALEM 350.1.13.10 ity of [place] HOSPITAL 4.2.7.2.686 Zay as [id number] [facility] [address] 2023-01-04 2023-01-04 Telephone [facility] 1.2.647.432 [id number] [id number] Univers 00:00:00 00:00:00 Juany HEALTH 350.1.13.10 it y of [place] CANC[place] 4.2.7.2.686 [place] - [phone] [facility] [address] 2023-01-01 2023-01-01 Telephone [facility] 1.2.840.11 4 [id number] Univers 00:00:00 00:00:00 oJrge GANDARA 350.1.13.10 it y of WOMEN'[place] 4.2.7.2.686 [place] HEALTH [id number] [facility] [address] 2022-12-31 2022-12-31 Emergency X Jasmin GREGORIO [facility] ERT [id number] Univers 00:13:00 01:07:00 ity of [facility] 2022-12-31 2022-12-31 Emergency Jasmin Gregorio [facility] 1.2.840.114 10 [id number] Univers 00:13:00 01:07:00 Filomena GUERRERO 350.1.13.10 i ty of [place] 4.2.7.2.686 [place] [id number] [facility] [address] 2022-12-31 2022-12-31 Telephone Francesca [facility] 1.2.732.753 [id number] [id number] Univers 00:00:00 00:00:00 Sendgerman GUERRERO 350.1.13.10 ity of [place] 4.2.7.2.686 [place] [id number] Ks dical NAL [address] [facility] 2022-12-31 2022-12-31 Patient Doctor SUDHA 1.2.840.114 [id number] Univers 00:00:00 00:00:00 Secure Msg Unassigned, ALEM 350.1.13.10 ity of [place] HOSPITAL 4.2.7.2.686 Zay as [phone] [facility] [address] 2022-12-30 2022-12-30 Hospital [facility] 1.2.840.114 [id number] Univers 10:38:24 23:59:00 Encounter Amrit GUERRERO 350.1.13.10 ity [address] [facility] 4.2.7.2.686 [facility] [phone] [facility] [address] 2022-12-30 2022-12-30 Outpatient [facility] [id number] Univers 10:38:24 23:59:00 SENDIL ity of [facility] 2022-12-30 2022-12-30 Emergency X [facility] ERT [id number] Univers 10:21:00 10:33:00 AWILDA ity [facility] 2022-12-30 2022-12-30 Emergency [facility] 1.2.840.114 10 [id number] Univers 10:21:00 10:33:00 Awilda GUERRERO 350.1.13.10 ity of [place] 4.2.7.2.686 [facility] [id number] [facility] [address] 2022-12-30 2022-12-30 Telephone Sammie [facility] 1.2.840.11 4 [id number] Univers 00:00:00 00:00:00 Jorge GANDARA 350.1.13.10 it y of WOMEN'S 4.2.7.2.686 [facility] [id number] [facility] [address] 2022-12-29 2022-12-29 Outpatient R JORGE CHANDRA [facility] B [id number] Univers 13:30:00 13:30:00 JORGE CHANDRAy [facility] 2022-12-29 2022-12-29 Orders Doctor HALEY 1.2.840.114 [id number] Univers 00:00:00 00:00:00 Only Unassigned, ALEM 350.1.13.10 ity of [place] HOSPITAL 4.2.7.2.686 Zay as [phone] [facility] [address] 2022-12-29 2022-12-29 Telephone [facility] 1.2.865.727 [id number] Univers 00:00:00 00:00:00 Juany HEALTH 350.1.13.10 it y of [place] 4.2.7.2.686 [place] CENTER - [phone] [facility] [address] 2022-12-28 2022-12-28 Telephone [facility] 1.2.250.533 7707 [id number] Univers 00:00:00 00:00:00 Juany HEALTH 350.1.13.10 it y of [place] 4.2.7.2.686 [place] CENTER - [phone] [facility] [address] 2022-12-25 2022-12-25 Patient Graciela [facility] 1.2.840.114 [id number] Univers 00:00:00 00:00:00 Secure Msg Kayley HEALTH 350.1.13.10 ity of [place] 4.2.7.2.686 Zay as BLANCA?BLEA [phone] [place] denilson [place] [address] MEDICAL OFFICE [facility] 2022-12-23 2022-12-23 Telephone [facility] 1.2.840.11 4 [id number] Univers 00:00:00 00:00:00 Angieoctavio NICHOL 350.1.13.10 it y of [place].2.[place] [facility] [phone] [facility] [address] 2022-12-23 2022-12-23 Patient Gurpreet [facility] 1.2.840.114 [id number] Univers 00:00:00 00:00:00 Secure Msg Norberto GUERRERO 350.1.13.10 ity of [place] 4.2.7.2.686 [place] [phone] [place]s dicenid [facility] 134 [facility] 2022-12-22 2022-12-22 [facility], Ang - Christofer [facility] 1.2.840.1 14 [id number] Univers 09:30:00 09:45:00 [facility] 350.1.13.1 0 ity of [facility] 4.2.7.2.686 Zay as BLANCA?BLEA [phone] K[place] dical KNEY [address] [place] [address] MEDICAL OFFICE BUILDING 2022-12-22 2022-12-22 Office Sammie [facility] 1.2.840.114 [id number] Univers 08:00:00 08:53:38 Visit Jorge GANDARA 350.1.13.10 it y of WOMEN'S 4.2.7.2.686 [facility] [id number] [facility] [address] 2022-12-22 2022-12-22 Outpatient R ZHAOJORGE RUTLEDGE [facility] B [id number] Univers 08:00:00 08:53:38 TRIJORGE RUTLEDGE ity of [facility] 2022-12-22 2022-12-22 Patient Doctor SUDHA 1.2.840.114 [id number] Univers 00:00:00 00:00:00 Secure Msg Unassigned, ALEM 350.1.13.10 ity of [place] HOSPITAL 4.2.7.2.686 Zay as [phone] [facility] [address] 2022-12-21 2022-12-21 Orders Doctor SUDHA 1.2.840.114 [id number] Univers 00:00:00 00:00:00 Only Unassigned, ALEM 350.1.13.10 ity of [place] HOSPITAL 4.2.7.2.686 Zay as [id number] [facility] [address] 2022-12-19 2022-12-19 Emergency X [facility] ERT [id number] Univers 02:32:00 05:47:00 MILADYS ity [facility] 2022-12-19 2022-12-19 Emergency [facility] 1.2.513.411 [id number] [id number] Univers 02:32:00 05:47:00 Miladys GUERRERO 350.1.13.10 ity [facility] 4.2.7.2.686 [facility] [phone] [facility] [address] 2022-12-18 2022-12-18 Outpatient R KENZIE BADILLO [facility] [id number] Univers 09:45:00 09:45:00 ity of [facility] 2022-12-17 2022-12-17 Telephone Kenzie Badillo [facility] 1.2.840.114 [id number] Univers 00:00:00 00:00:00 E HEALTH 350.1.13.10 it y of [place] 4.2.7.2.686 [place] - [phone] [facility] [address] 2022-12-15 2022-12-15 Outpatient R FRANCESCA [facility] [id number] Univers 11:00:00 11:30:30 SENDIL ity [facility] 2022-12-15 2022-12-15 Office [facility] 1.2.840.114 [id number] Univers 11:00:00 11:30:30 Visit Sendil Ismael GUERRERO 350.1.13.10 ity of [facility] 4.2.7.2.686 [place] [phone] [place] dic[address] 2022-12-15 2022-12-15 Telephone [facility] 1.2.476.354 [id number] [id number] Univers 00:00:00 00:00:00 Sendgerman GUERRERO 350.1.13.10 ity [facility] 4.2.7.2.686 [place] [phone] Ks dicsc NAL [address] [place] [address] 2022-12-14 2022-12-14 Emergency X [facility] ERT [id number] Univers 03:03:00 07:05:00 MILADYS ity [facility] 2022-12-14 2022-12-14 Emergency [facility] 1.2.696.582 [id number] [id number] Univers 03:03:00 07:05:00 Miladys GUERRERO 350.1.13.10 ity of [facility] 4.2.7.2.686 [place] CAMPUS 517.6822247 [facility] shanice [address] 2022-11-03 2022-11-03 Emergency X [facility] ERT [id number] Univers 08:15:00 12:05:00 GAURANG ity [facility] 2022-11-03 2022-11-03 [facility] 1.2.121.306 [id number] [id number] Univers 08:15:00 12:05:00 Gaurang GUERRERO 350.1.13.10 i ty of [facility] 4.2.7.2.686 [place] CAMPUS 265.1874401 [facility] [address] 2022-10-28 2022-10-28 Outpatient R GRACIELA [facility] [id number] Univers 15:00:00 15:28:11 KAYLEY itmisty of [facility] 2022-10-28 2022-10-28 Office [facility] 1.2.840.114 [id number] Univers 15:00:00 15:28:11 Visit [facility] 350.1.13.10 it y of [facility] 4.2.7.2.686 Zay as BLANCA?BLEA [id number] [address] MEDICAL OFFICE [facility] 2022-10-28 2022-10-28 Orders Doctor HALEY 1.2.840.114 [id number] Univers 00:00:00 00:00:00 Only Unassigned, ALEM 350.1.13.10 ity of [place] [facility] 4.2.7.2.686 Zay as [phone] [facility] [address] 2022-10-28 2022-10-28 Abstract [facility] 1.2.840.114 [id number] Univers 00:00:00 00:00:00 [facility] 350.1.13.10 it y of [place] 4.2.7.2.686 Zay as BLANCA?BLEA [id number] [address] OFFICE [facility] 2022-10-28 2022-10-28 Patient Henry [facility] 1.2.840.114 [id number] Univers 00:00:00 00:00:00 Outreach [facility] 350.1.13.10 i ty of [facility] 4.2.7.2.686 Zay as BLANCA?BLEA [phone] [address] OFFICE [facility] 2022-10-28 2022-10-28 Telephone [facility] 1.2.205.994 [id number] [id number] Univers 00:00:00 00:00:00 Phylicia GUERRERO 350.1.13.10 i ty of [facility] 4.2.7.2.686 [place] [phone] Me dical NAL [address] [facility] 2022-10-13 2022-10-13 Emergency X CAROL, [facility] ERT [id number] Univers 01:56:00 02:55:00 ARVINDLI ity [facility] 2022-10-13 2022-10-13 Emergency [facility] 1.2.077.906 2045 [id number] Univers 01:56:00 02:55:00 Miladys GUERRERO 350.1.13.10 ity [facility] 4.2.7.2.686 [facility] [id number] [place] [address] [place] 2022-10-09 2022-10-09 Emergency X [facility]IN[facility] ERT [id number] Univers 18:46:00 19:00:00 BRANT ity [facility] 2022-10-09 2022-10-09 [facility] 1.2.278.805 [id number] Univers 18:46:00 19:00:00 Brant GARNERJUAREZ 350.1.13.10 i ty [facility] 4.2.7.2.686 [facility] [phone] [place] [address] [place] 2022-10-09 2022-10-09 Orders Doctor SUDHA 1.2.840.114 [id number] Univers 00:00:00 00:00:00 Only Unassigned, ALEM 350.1.13.10 ity of [place] [facility] 4.2.7.2.686 Zay as [id number] [facility] [address] 2022-10-06 2022-10-06 [facility], 1.2.840.1 [id number] Methodi 17:35:51 23:59:00 Encounter Jorge Luis 06555.1.1 997 s t 3.430.2.7 Hospit a .3.490442 l .8 2022-10-06 2022-10-06 [facility], 1.2.840.1 [id number] [id number] Methodi 17:35:51 23:59:00 Encounter Jorge Luis 29273.1.1 997 s t 3.430.2.7 Hospit a .3.180084 l .8 2022-10-06 2022-10-06 [facility], 1.2.840.1 [id number] [id number] Methodi 17:35:36 23:59:00 Encounter Jorge Luis 56581.1.1 999 s t 3.430.2.7 Hospit a .3.096256 l .8 2022-10-06 2022-10-06 [facility], 1.2.840.1 [id number] [id number] Methodi 17:35:36 23:59:00 Encounter Jorge Luis 11290.1.1 999 s t 3.430.2.7 Hospit a .3.572229 l .8 2022-10-06 2022-10-06 Travel 1.2.840.1 1.2.124.830 3935 [id number] Methodi 00:00:00 00:00:[address] 3.430.2.7 0.2.7.3.698 Ho spita .3.983037 084.8 l .8 2022-10-06 2022-10-06 Travel 1.2.840.1 1.2.053.993 4236 [id number] Methodi 00:00:00 00:00:[address] 3.430.2.7 0.2.7.3.698 Ho spita .3.948186 084.8 l .8 2022-09-09 2022-09-09 Emergency X RISHABH, [facility] ERT [id number] Univers 18:15:00 19:35:00 NATY calixto of [facility] 2022-09-09 2022-09-09 Emergency Rishabh [facility] 1.2.840.114 [id number] [id number] Univers 18:15:00 19:35:00 Naty GUERRERO 350.1.13.10 i ty [facility] 4.2.7.2.686 [facility] [phone] [address] 2022-08-18 2022-08-18 Emergency X SINGER [facility] ERT [id number] Univers 16:38:00 17:44:00 HUY calixto of [facility] 2022-08-18 2022-08-18 Emergency [facility] 1.2.117.303 [id number] [id number] Univers 16:38:00 17:44:00 Huy GUERRERO 350.1.13.10 i [facility] 4.2.7.2.686 [facility] [phone] [facility] [address] 2022-08-07 2022-08-08 Inpatient CLAUDETTE Tyler, [facility].01 [id number] [facility] 14:50:00 12:01:00 Gianna 40 Woman' s [facility] 2022-08-03 2022-08-03 Emergency EM Ernesto, [facility] AERS [id number] [facility] 14:26:00 16:02:00 Roro 86 [facility] 2022-07-23 2022-07-23 [facility], 1.2.840.1 [id number] Methodi 10:30:00 10:30:00 Encounter Jorge Luis 78736.1.1 209 s t 3.430.2.7 Hospit a .3.680963 l .8 2022-07-23 2022-07-23 Telephone Gabi, 1.2.840.1 [id number] 2100 [id number] Methodi 00:00:00 00:00:[address] 3.430.2.7 Hospit a .3.180195 l .8 2022-07-23 2022-07-23 Telephone Gabi, 1.2.840.1 [id number] 2100 [id number] [facility]i 00:00:00 00:00:[address] 3.430.2.7 Hospit a .3.569139 l .8 2022-07-07 2022-07-07 Outpatient LONA DILL [id number] Lona 10:45:00 10:45:00 ELBERT alvarez 2022-07-06 2022-07-06 Travel 1.2.840.1 1.2.316.156 7262 077250 Methodi 00:00:00 00:00:[address] 3.430.2.7 0.2.7.3.698 Ho spita .3.002744 084.8 l .8 2022-06-15 2022-06-16 [facility], 1.2.840.1 [id number] 2100 [id number] Methodi 14:15:00 11:08:59 Visit Jorge Luis 47515.1.[address] 3.430.2.7 Hospit a .3.796704 l .8 2022-06-15 2022-06-15 [facility], 1.2.840.1 [id number] 919 [id number] Methodi 14:15:15 23:59:00 Encounter Jorge Luis 52287.1.1 971 s t 3.430.2.7 Hospit a .3.308190 l .8 2022-06-15 2022-06-15 [facility], 1.2.840.1 [id number] 991 [id number] Methodi 14:15:13 23:59:00 Encounter Jorge Luis 27684.1.1 963 s t 3.430.2.7 Hospit a .3.910064 l .8 2022-06-15 2022-06-15 [facility], 1.2.840.1 [id number] 090 [id number] Methodi 14:13:36 14:14:00 Encounter Jorge Luis 22341.1.1 680 s t 3.430.2.7 Hospit a .3.215600 l .8 2022-06-15 2022-06-15 [facility], 1.2.840.1 [id number] 281 [id number] Methodi 14:12:01 14:12:01 Encounter Jorge Luis 69305.1.1 418 s t 3.430.2.7 Hospit a .3.959831 l .8 2022-06-15 2022-06-15 [facility], 1.2.840.1 [id number] 2100 825749 Methodi 00:00:00 00:00:00 Only Jorge Luis 49826.1.[address] 3.430.2.7 Hospit a .3.676175 l .8 2022-06-15 2022-06-15 Travel 1.2.840.1 1.2.878.600 1304 135506 Methodi 00:00:00 00:00:[address] 3.430.2.7 0.2.7.3.698 Ho spita .3.409345 084.8 l .8 2022-06-11 2022-06-11 Travel 1.2.840.1 1.2.409.512 9268 915187 Methodi 00:00:00 00:00:[address] 3.430.2.7 0.2.7.3.698 Ho spita .3.449490 084.8 l .8 2022-02-17 2022-02-17 Refill Vivian 1.2.840.1 [id number] 2100 064619 Methodi 00:00:00 00:00:[address] Andrea 3.430.2.7 Hospit a .3.800682 l .8 2022-01-20 2022-01-20 Office Vivian 1.2.840.1 [id number] 2100 [id number] Methodi 13:00:00 13:57:49 Visit Yoseph 41888.1.[address] Andrea 3.430.2.7 Hospit a .3.568287 l .8 2022-01-20 2022-01-20 Telephone GEORGIE Kelley 1.2.840.114 9 [id number] [facility] 00:00:00 00:00:00 Michi MIJARESPEC 350.1.13.10 James 4.2.7.2.686 [facility] [id number] [facility] AND [address] [facility] 2022-01-20 2022-01-20 Travel 1.2.840.1 1.2.902.409 4323 920398 Methodi 00:00:00 00:00:[address] 3.430.2.7 0.2.7.3.698 Ho spita .3.652397 084.8 l .8 2022-01-19 2022-01-19 [facility] 1.2.840.114 93 [id number] [facility] 00:00:00 00:00:00 Yoseph MULTISPEC 350.1.13.10 ity of [facility] 4.2.7.2.686 [facility] [id number] [facility] AND [place] [address] [facility] 2021-11-21 2021-11-21 Orders Doctor SUDHA 1.2.840.114 [id number] [facility] 00:00:00 00:00:00 Only Unassigned, ALEM 350.1.13.10 ity of [facility] 4.2.7.2.686 Zay [id number] [place] [facility] [address] 2021-11-17 2021-11-18 Emergency [facility] ERT [id number] Univers 19:45:00 00:44:00 [facility] 2021-11-17 2021-11-18 Emergency [facility] 1.2.561.540 [id number] 8574 Univers 19:45:00 00:44:00 Donta GUERRERO 350.1.13.10 i ty [facility] 4.2.7.2.686 [facility] [phone] [facility] 084 Branch 2021-11-16 2021-11-16 Emergency X [facility] ERT [id number] Univers 20:28:00 21:58:00 MILADYS ity [facility] 2021-11-16 2021-11-16 Emergency [facility] 1.2.969.821 [id number] Univers 20:28:00 21:58:00 Miladys GUERRERO 350.1.13.10 ity [facility] 4.2.7.2.686 [facility] [id number] [facility] 0[address] Branch 2021-10-02 2021-10-02 Emergency EM SALENA Piña MALISSA [id number] [facility] 16:59:00 20:32:00 Hung [id number] Cl [facility] 2021-10-02 2021-10-02 Emergency EM EDDOC, HCACL HCACL [id number] [facility] 16:59:00 20:32:00 GENERIC 76 [facility] 2021-10-01 2021-10-01 Petr Borges 1.2.840.1 [id number] [id number] Methodi 00:00:00 00:00:[address] Andrea 3.430.2.7 Hospit a .3.290729 l .8 2021-09-30 2021-09-30 Emergency X [facility] ERT [id number] Univers 13:31:00 16:34:00 AWILDA misty [facility] 2021-09-30 2021-09-30 Emergency [facility] 1.2.840.114 [id number] Univers 13:31:00 16:34:00 Awilda GUERRERO 350.1.13.10 [facility] 4.2.7.2.686 [facility] [id number] [address] 2021-08-14 2021-08-14 Refill Nenita, 1.2.840.1 [id number] 21 [id number] Methodi 00:00:00 00:00:[address] 3.430.2.7 Hospit a .3.004668 l .8 2021-08-12 2021-08-12 Refill Nenita, 1.2.840.1 [id number] 21 [id number] Methodi 00:00:00 00:00:[address] 3.430.2.7 Hospit a .3.552885 l .8 2021-07-23 2021-07-23 Emergency X [facility] ERT [id number] 08 Univers 16:14:00 17:06:00 [facility] 2021-07-23 2021-07-23 Emergency [facility] 1.2.544.364 [id number] Univers 16:14:00 17:06:00 YOLANDA 350.1.13.10 i ty [facility] 4.2.7.2.686 [facility] [id number] [facility] [address] 2021-07-23 2021-07-23 Emergency EM SALENA Coles AERS [id number] [facility] 13:58:00 14:24:00 Burak [id number] [facility] 2021-07-23 2021-07-23 Emergency EM SALENA Coles [facility] [id number] [facility] 13:58:00 14:24:00 Burak 69 [facility] 2021-07-10 2021-07-10 Telemedici Vivian, 1.2.840.1 [id number] 2 [id number] Methodi 08:30:00 09:02:51 ne [place] [address]4635.1.[address] [facility] 3.430.2.7 Hospit a .3.635113 l .8 2021-07-09 2021-07-09 Travel 1.2.840.1 1.2.735.336 7584 763725 Methodi 00:00:00 00:00:[address] 3.430.2.7 0.2.7.3.698 Ho spita .3.708518 084.8 l .8 2021-06-13 2021-06-13 [facility] [address] [address]67 [place] 00:00:00 00:00:[address] 2021-04-17 2021-04-17 Emergency E LOLITA WASSERMAN SE MED 7515 16:40:00 19:42:00 [facility] 2021-03-30 2021-03-30 Emergency E SATURNINO [facility] MED 7514 MHBL 00:46:00 06:26:00 KURT 2021-01-15 2021-01-15 Outpatient EscobarITALIABREANNA [facility] G81 6242-20 [facility] 08:00:00 08:00:00 Rik 102231 [facility] 2021-01-09 2021-01-09 Emergency E LOLITA WASSERMAN SE MED 7513 12:29:00 16:41:00 [facility] 2020-12-26 2020-12-26 Emergency [facility] 064 [id number] 09 [place] 00:00:00 00:00:[address] 2020-12-21 2020-12-22 Emergency [facility] 1.2.219.000 [id number] 7932 [facility] 22:42:00 02:02:00 Miladys Avila Yolanda 350.1.13.10 ity of [place] 4.2.7.2.686 [facility] [id number] [facility] [address] 2020-12-21 2020-12-22 Emergency [facility] 1.2.406.638 5418 7932 22:42:00 02:02:00 Jasoncesar Guerrero 350.1.13.10 [place] 4.2.7.2.686 [place] [id number] [facility] 2020-12-21 2020-12-21 Orders Doctor SUDHA 1.2.840.114 [id number] 30 Univers 00:00:00 00:00:00 Only Unassigned, ALEM 350.1.13.10 ity of [place] [facility] 4.2.7.2.686 Zay [id number] [facility] [address] 2020-12-21 2020-12-21 Orders Doctor SUDHA 1.2.840.114 [id number] 30 00:00:00 00:00:00 Only Unassigned, ALEM 350.1.13.10 [place] [facility] 4.2.7.2.68 [id number] 009 2020-08-15 2020-08-19 Inpatient [facility] [id number] [facility] 14:57:00 06:49:15 39 [facility] 2020-08-15 2020-08-15 Emergency [facility] 1.2.428.203 [id number] 8387 [facility] 03:26:00 06:17:00 Donta Guerrero 350.1.13.10 i ty of [place] 4.2.7.2.686 [facility] [id number] [place] 833704 Branch 2020-08-15 2020-08-15 Emergency [facility] ERT [id number] Univers 03:26:00 06:17:00 DONTA ity of [facility] 2020-08-15 2020-08-15 Emergency Qiu, [facility] 1.2.102.709 [id number] 8387 03:26:00 06:17:00 Donta Yolanda 350.1.13.10 [place] 4.2.7.2.686 [place] [id number] [facility] 2020-04-13 2020-04-13 Emergency Elisa, [facility] 1.2.840.114 [id number] [facility] 19:38:00 23:40:00 Awilda Guerrero 350.1.13.10 ity of [place] 4.2.7.2.686 [facility] [phone] [address] 2020-04-13 2020-04-13 Emergency Elisa, [facility] 1.2.840.114 [id number] [id number] 19:38:00 23:40:00 Awilda Guerrero 350.1.13.10 [place] 4.2.7.2.686 [place] [id number] [facility] 2020-04-13 2020-04-13 Orders Doctor HALEY 1.2.840.114 [id number] [facility] 00:00:00 00:00:00 Only Unassigned, ALEM 350.1.13.10 ity of [place] [facility] 4.2.7.2.686 Zay [id number] [address] 2020-04-13 2020-04-13 Orders Doctor HALEY 1.2.840.114 [id number] 77 00:00:00 00:00:00 Only Unassigned, ALEM 350.1.13.10 [place] [facility] 4.2.7.2.686 135.4030507 [facility] 2020-04-10 2020-04-10 Emergency Pope, [facility] 1.2.812.931 8781 5068 [facility] 15:39:00 19:05:00 Huy Guerrero 350.1.13.10 i ty of [place] 4.2.7.2.686 [facility] [id number] [address] 2020-04-10 2020-04-10 Emergency Pope, [facility] 1.2.329.113 2809 5068 15:39:00 19:05:00 Huy Guerrero 350.1.13.10 [place] 4.2.7.2.686 [place] [id number] 084 2020-04-10 2020-04-10 Orders Doctor SUDHA 1.2.840.114 [id number] 10 Univers 00:00:00 00:00:00 Only Unassigned, ALEM 350.1.13.10 ity of [place] [facility]OS[facility] 4.2.7.2.686 Zay as [id number] [facility] [address]9 Branch 2020-04-10 2020-04-10 Orders Doctor SUDHA 1.2.840.114 [id number] 10 00:00:00 00:00:00 Only Unassigned, ALEM 350.1.13.10 [place] [facility] 4.2.7.2.686 [id number] 009 2020-03-11 2020-03-11 [facility] 677 61986 [place] 10:00:00 10:00:00 t; Gayatri HUSIAN and Quynh FOSTER Gynecology rubén HUSAIN M.D. [facility] 2020-02-28 2020-02-28 [facility] [id number] 86 [place] 08:30:00 08:30:00 t; Gayatri HUSAIN ans ASHA, M.D. 2020-02-23 2020-02-23 [facility] [id number] 74 [place] 11:00:00 11:00:00 t; Gayatri HUSAIN ans ASHA, M.D. 2020-02-16 2020-02-16 [facility] 673 [id number] [place] 14:15:00 14:15:00 t; Yue ROCHA i, M.D. Gynecology Dinah Crawford M.D. Clinic 2020-02-15 2020-02-15 Emergency E AMELIE, SE MHSE 7510 20:06:00 21:19:00 [facility] 2020-02-14 2020-02-14 [facility] 6679 2985 [place] 09:00:00 09:00:00 t; SAMIR MATAMOROS, and Quynh DAWSON M.D. Gynecology rubén Mendieta [facility] 2020-01-31 2020-01-31 Appointmen MARIBEL AGRAWAL Obstetrics 667 94632 [place] 08:30:00 08:30:00 t; JUNE and Jennifer AGRAWAL D.O. Gynecology rubén WATKINS [facility] 2019-12-20 2019-12-20 AppointMARIBEL Pimentel Orthopedics 65 [id number] [place] 09:30:00 09:30:00 t; JOSE ROBERTO [facility] ramirez GOSS M.D. Sports Jewel Lazo M.D. [facility] 2019-12-20 2019-12-20 Outpatient Raju_P MMG MMG [id number] 020 [place] 04:51:00 04:51:00 04[facility] 2019-12-18 2019-12-18 Emergency E TABBY, MHSE MHSE 7500 MH 20:54:00 21:40:00 [facility] 2019-10-11 2019-10-12 Emergency [facility] ERT [id number] Univers 21:52:36 00:17:00 DONTA ity of [facility] 2019-10-11 2019-10-12 Emergency [facility] 1.2.359.031 7584 3555 Univers 21:52:36 00:17:00 Donta Guerrero 350.1.13.10 i ty of [place] 4.2.7.2.686 [facility] s [place] [id number] [facility] 084 Branch 2019-10-11 2019-10-12 Emergency [facility] 1.2.484.105 3266 3555 21:52:36 00:17:00 Donta Guerrero 350.1.13.10 [place] 4.2.7.2.686 [place] [id number] 08 2019-10-11 2019-10-11 Orders Doctor HALEY 1.2.840.114 [id number] 54 Univers 00:00:00 00:00:00 Only Unassigned, ALEM 350.1.13.10 ity of [place] [facility] 4.2.7.2.686 [facility] [id number] [facility] 009 Branch 2019-10-11 2019-10-11 Orders Doctor HALEY 1.2.840.114 [id number] 54 00:00:00 00:00:00 Only Unassigned, ALEM 350.1.13.10 [place] [facility] 4.2.7.2.686 [id number] 009 2019-06-28 2019-06-28 Appointmen MARIBEL GRUBBS Obstetrics 580 82486 [place] 16:00:00 16:00:00 t; Gayatri CAVANAUGH and Ph ysici HUMERA, Gynecology Dinah Medina M.D. [facility] 2019-05-12 2019-05-12 Nurse Visit, [facility] Nurse [facility] 1.2 .840.114 [id number] [facility] 10:44:42 12:05:57 Visit Perri Pérez MOLD PULLER 350.1.13.10 ity of [facility] 4.2.7.2.686 [place] as MATERNAL [id number] Med ical & CHILD [address] [place] [address] 2019-05-12 2019-05-12 Nurse Visit, [facility] 1.2.840.114 [id number] 60 10:44:42 12:05:57 Visit [facility] MOLD PULLER 350.1.13.10 Nurse [facility] 4.2.7.2.686 MATERNAL [id number] & CHILD [address] [place] [address] 2019-05-10 2019-05-10 Telephone [facility] 1.2.840.114 [id number] [facility] 00:00:00 00:00:00 Perri Olivier MOLD PULLER 350.1.13.10 it y of [facility] 4.2.7.2.686 [place] as MATERNAL [phone] Med ical & CHILD [address] [place] [address] 2019-05-10 2019-05-10 Telephone [facility] 1.2.840.114 [id number] 00:00:00 00:00:00 Perri Olivier MOLD PULLER 350.1.13.10 REGIONAL 4.2.7.2.686 MATERNAL [id number] & CHILD [address] [place] [address] 2019-04-03 2019-04-03 Patient McfaddenROBIN 1.2.840.114 705 27316 Univers 00:00:00 00:00:00 Secure [facility] Ivet Y HEALTH 350.1.13.10 ity of [facility] 4.2.7.2.[place] [id number] [facility] 113 [address] 2019-04-03 2019-04-03 Patient ROBIN Mcfadden 1.2.840.114 [id number] 65320 00:00:00 00:00:00 Secure Msg Ivet Y HEALTH 350.1.13.10 [facility] 4.2.7.2.686 [id number] 113 2019-03-07 2019-03-07 Patient Doctor SUDHA 1.2.840.114 [id number] Univers 00:00:00 00:00:00 Secure Msg Unassigned, ALEM 350.1.13.10 ity of [place] [facility] 4.2.7.2.686 [place] as [phone] [address] 2019-03-07 2019-03-07 Patient Doctor SUDHA 1.2.840.114 [id number] 20 00:00:00 00:00:00 Secure Msg Unassigned, ALEM 350.1.13.10 [place] [facility] 4.2.7.2.686 [id number] [facility] 2019-02-27 2019-02-27 Patient Doctor SUDHA 1.2.840.114 [id number] Univers 00:00:00 00:00:00 Secure Msg Unassigned, ALEM 350.1.13.10 ity of [place] [facility] 4.2.7.2.686 Z[place] as [id number] [address] 2019-02-27 2019-02-27 Patient Doctor SUDHA 1.2.840.114 [id number] 58 00:00:00 00:00:00 Secure Msg Unassigned, ALEM 350.1.13.10 [place] [facility] 4.2.7.2.686 [id number] 044 2018-10-13 2018-10-13 MARIBEL [place] [id number] 058 [place] 14:30:00 14:30:00 t; Jennifer FINK i, M.D. ans JORDAN, M.D. 2018-09-07 2018-09-21 Outpatient [facility] [id number] 15:00:00 10:19:03 2018-09-07 2018-09-07 AppointMARIBEL Rae [employer] [id number] [place] 15:00:00 15:00:00 t; BONITA KRISHNA, [...] See_Comment [Au tomated message] The system which ge nerated this [...] 34.6 g/dL 31.6-35.1 RDW-SD (test code = 38398-0) 39.3 fL 39.0-49.9 RDW-CV (test code = 788-0) 11.5 % 12.0-15.5 L PLT (test code = 777-3) 426 See_Comment H [Au tomated message] The system which ge nerated this result transmit uche reference range: 166 - 35 8 10*3/?L. The reference range was not used to interpret th is result as normal/abnormal . MPV (test code = 71206-6) 9.3 fL 9.5-12.9 L NRBC/100 WBC (test code = 0.0 See_Comment [ Automated message] The 0850774227) system which ge nerated this result transmit uche reference range: 0.0 - 10 .0 /100 WBCs. The reference r dagoberto was not used to interpr et this result as normal/abnor mal. NRBC x10^3 (test code = See_Comment [Au tomated message] The 9303952212) system which ge nerated this result transmit uche reference range: 10*3/?L. The reference range was not u sed to interpret this result as normal/abnormal . GRAN MAT (NEUT) % (test code 69.0 % = 770-8) IMM GRAN % (test code = 0.40 % 2060927683) LYMPH % (test code = 736-9) 25.4 % MONO % (test code = 5905-5) 4.6 % EOS % (test code = 713-8) 0.2 % BASO % (test code = 706-2) 0.4 % GRAN MAT x10^3(ANC) (test 6.90 10*3/uL 1.88-7.09 code = 6840124995) IMM GRAN x10^3 (test code = 0.04 10*3/uL 0.00-0.06 7260994585) LYMPH x10^3 (test code = 2.54 10*3/uL 1.32-3.29 731-0) MONO x10^3 (test code = 0.46 10*3/uL 0.33-0.92 742-7) EOS x10^3 (test code = 0.03-0.39 L 711-2) BASO x10^3 (test code = 0.04 10*3/uL 0.01-0.07 704-7) Lab Interpretation (test Abnormal code = 83965-0) [id number] 18:05:00 Test Item Value Reference Range Interpretation Comments POCT PREG (test code = 1605) Negative On board controls acceptable with Yes C Line (test code = 3574) POCT PREG LOT # (test code = 3575) [id number] POCT PREG TEST DATE (test 09-08-2024 code = 3576) Lab Interpretation (test code = Normal 62086-7) [facility] [id number] 20:27:33 Test Item Value Reference Range Interpretation Comments TROPONIN I (test code = <=0.034 9198108732) ANGI (test code = ANGI) Reference (Normal) [...] biotin. Lab Interpretation Normal (test code = 93727-1) [facility] Metabolic [id number] 20:18:51 Test Item Value Reference Range Interpretation Comments NA (test code = 132 mmol/L 135-145 L 4884914764) K (test code = 4.1 mmol/L 3.5-5.0 2082563107) CL (test code = 98 mmol/L 98-108 7121094441) CO2 TOTAL (test code = 26 mmol/L 23-31 0086614311) AGAP (test code = 8 2-16 0912769496) BUN (test code = 12 mg/dL 7-23 5489246438) GLUCOSE (test code = 79 mg/dL 70-110 3265052210) CREATININE (test code = 0.58 mg/dL 0.50-1.04 0044882715) TOTAL BILI (test code = 0.4 mg/dL 0.1-1.1 9729421334) CALCIUM (test code = 9.0 mg/dL 8.6-10.6 9867752715) T PROTEIN (test code = 7.4 g/dL 6.3-8.2 6610991087) ALBUMIN (test code = 4.5 g/dL 3.5-5.0 0887337653) ALK PHOS (test code = 62 U/L 34-122 7639394866) ALTv (test code = 23 U/L 5-35 1742-6) AST(SGOT) (test code = 31 U/L 13-40 2689783867) eGFR (test code = 122.1 mL/min/1.73m2 2616671316) ANGI (test code = ANGI) Association of [...] tests). Lab Interpretation Abnormal (test code = 99446-3) [facility] Hospital[facility], [id number] 20:18:51 Test Item Value Reference Range Interpretation Comments LIPASE (test code = 1943228651) 186 U/L 0-220 Lab Interpretation (test code = Normal 93814-7) [facility] with [id number] 19:39:40 Test Item Value Reference Range Interpretation Comments WBC (test code = 5.62 See_Comment [Automated 7699-2) message] The sy stem which generated this result transmitted reference range : 4.30 - 11.10 10*3/?L. The reference range was not used to interpret this result as normal/abnormal . RBC (test code = 4.24 See_Comment [Automated 293-4) message] The sy stem which generated this [...] RDW-SD (test code = 44.1 fL 39.0-49.9 02314-2) RDW-CV (test code = 13.2 % 12.0-15.5 788-0) PLT (test code = 277 See_Comment [Automated 777-3) message] The sy stem which generated this result transmitted reference range : 166 - 358 10*3/ ?L. The reference r dagoberto was not used to interpret this result as normal/abnormal . MPV (test code = 8.5 fL 9.5-12.9 L 84539-0) NRBC/100 WBC (test 0.0 See_Comment [Automat ed code = 0652153054) message] The system which generated this result transmitted reference range : 0.0 - 10.0 /100 WBCs. The refer ence range was not u sed to interpret th is result as normal/abnormal . NRBC x10^3 (test code See_Comment [Auto mated = 2408733169) message] The s ystem which generated this result transmitted reference range : 10*3/?L. The reference range was not used to interpret this result as normal/abnormal . GRAN MAT (NEUT) % 46.4 % (test code = 770-8) IMM GRAN % (test code 0.90 % = 7725394154) LYMPH % (test code = 38.6 % 736-9) MONO % (test code = 12.5 % 5905-5) EOS % (test code = 0.7 % 713-8) BASO % (test code = 0.9 % 706-2) GRAN MAT x10^3(ANC) 2.61 10*3/uL 1.88-7.09 (test code = 6914854268) IMM GRAN x10^3 (test 0.05 10*3/uL 0.00-0.06 code = 8822327379) LYMPH x10^3 (test code 2.17 10*3/uL 1.32-3.29 = 731-0) MONO x10^3 (test code 0.70 10*3/uL 0.33-0.92 = 742-7) EOS x10^3 (test code = 0.04 10*3/uL 0.03-0.39 711-2) BASO x10^3 (test code 0.05 10*3/uL 0.01-0.07 = 704-7) Lab Interpretation Abnormal (test code = 96686-0) [facility] [id number] 19:34:00 Test Item Value Reference Range Interpretation Comments POCT PREG (test code = 1605) Negative On board controls acceptable with Yes C Line (test code = 3574) POCT PREG LOT # (test code = 3575) [id number] POCT PREG TEST DATE (test 04/13/2024 code = 3576) Lab Interpretation (test code = Normal 43643-1) [facility]. METABOLIC PANEL (89855)2023-01-15 15:36:17 Test Item Value Reference Range Interpretation Comments NA (test code = 139 mmol/L 135-145 6390278249) K (test code = 4.7 mmol/L 3.5-5.0 3058974357) CL (test code = 103 mmol/L 98-108 9789608431) CO2 TOTAL (test code 28 mmol/L 23-31 = 4955575680) AGAP (test code = 8 2-16 1345772482) BUN (test code = 14 mg/dL 7-23 9084115003) GLUCOSE (test code = 75 mg/dL 70-110 5848555344) CREATININE (test code 0.72 mg/dL 0.50-1.04 = 4292406836) TOTAL BILI (test code 0.4 mg/dL 0.1-1.1 = 5296551277) CALCIUM (test code = 9.4 mg/dL 8.6-10.6 6756957622) T PROTEIN (test code 7.4 g/dL 6.3-8.2 = 9939552829) ALBUMIN (test code = 4.5 g/dL 3.5-5.0 8376456876) ALK PHOS (test code = 58 U/L 34-122 8667898585) ALTv (test code = 22 U/L 5-35 1742-6) AST(SGOT) (test code 24 U/L 13-40 = 1026837450) eGFR (test code = 95.1 mL/min/1.73m2 9672998373) ANGI (test code = ANGI) Association of [...] or urine or abnormalities in imaging tests). [facility] 15:36:17 Test Item Value Reference Range Interpretation Comments LIPASE (test code = 4063421635) 93 U/L 0-220 Lab Interpretation (test code = Normal 00283-5) [facility] WITH [id number] 15:19:14 Test Item Value Reference Range Interpretation [...] RDW-SD (test code = 42.5 fL 39.0-49.9 70457-5) RDW-CV (test code = 12.9 % 12.0-15.5 788-0) PLT (test code = 317 See_Comment [Automated 777-3) message] The sy stem which generated this result transmitted reference range : 166 - 358 10*3/ ?L. The reference r dagoberto was not used to interpret this result as normal/abnormal . MPV (test code = 8.8 fL 9.5-12.9 L 66396-4) NRBC/100 WBC (test 0.0 See_Comment [Automat ed code = 9251300821) message] The system which generated this result transmitted reference range : 0.0 - 10.0 /100 WBCs. The refer ence range was not u sed to interpret th is result as normal/abnormal . NRBC x10^3 (test code See_Comment [Auto mated = 0989217417) message] The s ystem which generated this result transmitted reference range : 10*3/?L. The reference range was not used to interpret this result as normal/abnormal . GRAN MAT (NEUT) % 55.7 % (test code = 770-8) IMM GRAN % (test code 0.30 % = 8083429755) LYMPH % (test code = 34.0 % 736-9) MONO % (test code = 8.1 % 5905-5) EOS % (test code = 1.0 % 713-8) BASO % (test code = 0.9 % 706-2) GRAN MAT x10^3(ANC) 4.45 10*3/uL 1.88-7.09 (test code = 2928286423) IMM GRAN x10^3 (test 0.00-0.06 code = 5007112319) LYMPH x10^3 (test code 2.72 10*3/uL 1.32-3.29 = 731-0) MONO x10^3 (test code 0.65 10*3/uL 0.33-0.92 = 742-7) EOS x10^3 (test code = 0.08 10*3/uL 0.03-0.39 711-2) BASO x10^3 (test code 0.07 10*3/uL 0.01-0.07 = 704-7) Lab Interpretation Abnormal (test code = 80745-1) [facility] [id number]09 Test Item Value Reference Range Interpretation Comments POCT Creatinine (test code = 0.7 mg/dL 0.5-1.9 [id number]) Lab Interpretation (test code = Normal 67204-6) [facility] [id number] 17:16:01 Test Item Value Reference Range Interpretation Comments TSH (test code = 3.96 See_Comment [Automated message] [id number]) The system [employer] generated this result transmitted ref erence range: 0.45 - 4 .70 mIU/L. The refe rence range was not u sed to interpret this result as normal/abnor mal. Lab Interpretation (test Normal code = 53235-3) [id number] 11:33:33 Test Item Value Reference Interpretation Comments Range D-DIMER (test code = See_Comment [Autom ated [id number]) message] The system which generated this result [...] diagnosis. Lab Interpretation Normal (test code = 88111-4) [facility] [id number] 10:57:27 Test Item Value Reference Range Interpretation Comments TROPONIN I (test code = 0.012 ng/mL <=0.034 [id number]) ANGI (test code = ANGI) Reference (Normal) [...] biotin. Lab Interpretation Normal (test code = 97116-5) [facility] [id number] 09:04:18 Test Item Value Reference Range Interpretation Comments TROPONIN I (test code = 0.010 ng/mL <=0.034 [id number]) ANGI (test code = ANGI) Reference (Normal) [...] biotin. Lab Interpretation Normal (test code = 22293-1) [facility] WITH [id number] 09:03:38 Test Item Value Reference Range Interpretation Comments WBC (test code = 10.76 See_Comment [Automated 0890-2) message] The sy stem which generated this [...] (test code = 36.7 fL 39.0-49.9 L 62038-7) RDW-CV (test code = 11.6 % 12.0-15.5 L 788-0) PLT (test code = 317 See_Comment [Automated 777-3) message] The sy stem which generated this result transmitted reference range : 166 - 358 10*3/ ?L. The reference r dagoberto was not used to interpret this result as normal/abnormal . MPV (test code = 8.8 fL 9.5-12.9 L 82292-1) NRBC/100 WBC (test 0.0 See_Comment [Automat ed code = [id number]) message] The system which generated this result transmitted reference range : 0.0 - 10.0 /100 WBCs. The refer ence range was not u sed to interpret th is result as normal/abnormal . NRBC x10^3 (test code See_Comment [Auto mated = [id number]) message] The s ystem which generated this result transmitted reference range : 10*3/?L. The reference range was not used to interpret this result as normal/abnormal . GRAN MAT (NEUT) % 49.3 % (test code = 770-8) IMM GRAN % (test code 0.50 % = 4276817271) LYMPH % (test code = 42.6 % 736-9) MONO % (test code = 6.3 % 5905-5) EOS % (test code = 0.6 % 713-8) BASO % (test code = 0.7 % 706-2) GRAN MAT x10^3(ANC) 5.32 10*3/uL 1.88-7.09 (test code = 4646178879) IMM GRAN x10^3 (test 0.05 10*3/uL 0.00-0.06 code = 8373407073) LYMPH x10^3 (test code 4.58 10*3/uL 1.32-3.29 H = 731-0) MONO x10^3 (test code 0.68 10*3/uL 0.33-0.92 = 742-7) EOS x10^3 (test code = 0.06 10*3/uL 0.03-0.39 711-2) BASO x10^3 (test code 0.07 10*3/uL 0.01-0.07 = 704-7) Lab Interpretation Abnormal (test code = 57357-5) [facility] (79124)2022-12-14 08:52:54 Test Item Value Reference Range Interpretation Comments NA (test code = 137 mmol/L 135-145 3660314393) K (test code = 3.9 mmol/L 3.5-5.0 1412492633) CL (test code = 103 mmol/L 98-108 5373471247) CO2 TOTAL (test code 25 mmol/L 23-31 = 1234411137) AGAP (test code = 9 2-16 4014695178) BUN (test code = 14 mg/dL 7-23 2238866472) GLUCOSE (test code = 88 mg/dL 70-110 5690041348) CREATININE (test code 0.69 mg/dL 0.50-1.04 = 2062091423) TOTAL BILI (test code 0.4 mg/dL 0.1-1.1 = 6824495323) CALCIUM (test code = 9.5 mg/dL 8.6-10.6 5170860150) T PROTEIN (test code 7.8 g/dL 6.3-8.2 = 7170379121) ALBUMIN (test code = 4.9 g/dL 3.5-5.0 7074258862) ALK PHOS (test code = 59 U/L 34-122 4688476595) ALTv (test code = 19 U/L 5-35 2-6) AST(SGOT) (test code 23 U/L 13-40 = 7452638430) eGFR (test code = 99.9 mL/min/1.73m2 9006363411) ANGI (test code = ANGI) Association of [...] or urine or abnormalities in imaging tests). [facility]52:34 Test Item Value Reference Range Interpretation Comments LIPASE (test code = 5785380099) 70 U/L 0-220 Lab Interpretation (test code = Normal 68172-9) [facility] HospitalD-[id number] 15:45:47 Test Item Value Reference Interpretation Comments Range D-DIMER (test code = See_Comment [Autom ated 0483981833) message] The system which generated this result [...] diagnosis. Lab Interpretation Normal (test code = 51336-4) [facility], [id number] 15:07:51 Test Item Value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
--- NOTE | 2023-07-12 14:12 | ER ---
Nurse's Notes [facility] Name: Lona Marie Age: 33 yrs Sex: Female : 1990 Arrival Date: 07/12/2023 Time: 13:33 Bed IW2 Private MD: Diagnosis: Anxiety disorder, unspecified Presentation: 07/12 13:52 Chief complaint: Patient states: was seen by psychiatrist , her meds were changed, iw still feeling anxious. Coronavirus screen: At this time, the client does not indicate any symptoms associated with coronavirus-19. Ebola Screen: Patient negative for fever greater than or equal to 101.5 degrees Fahrenheit, and additional compatible Ebola Virus Disease symptoms Patient denies exposure to infectious person. Patient denies travel to an Ebola-affected area in the 21 days before illness onset. No symptoms or risks identified at this time. Initial Sepsis Screen: Does the patient meet any 2 criteria? No. Patient's initial sepsis screen is negative. Does the patient have a suspected source of infection? No. Patient's initial sepsis screen is negative. Risk Assessment: Do you want to hurt yourself or someone else? Patient reports no desire to harm self or others. Onset of symptoms was July 12, 2023. 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 - Family history:: not pertinent. - Social history:: Smoking status: unknown. - Hospitalizations: : No recent hospitalization is reported. Screenin:[address] [facility] ED Fall Risk Assessment (Adult) Score/Fall Risk Level 0 - 2 = Low Risk. Abuse iw screen: Denies threats or abuse. Denies injuries from another. Nutritional screening: No deficits noted. Tuberculosis screening: No symptoms or risk factors identified. Assessment: 13:54 General: Appears in no apparent distress. Behavior is cooperative, anxious. Pain: iw Denies pain. 14:20 Reassessment: Patient appears in no apparent distress at this time. Patient and/or iw family updated on plan of care and expected duration. Pain level reassessed. Patient states feeling better. Patient states symptoms have improved. Vital Signs: 13:52 BP 132 / 92; Pulse 92; Resp 16; Temp 99.3; Pulse Ox 100% on R/A; iw ED Course: 13:36 Patient arrived in ED. im 13:39 Jose Roberto Baker MD is Attending Physician. rn 13:54 Triage completed. iw 13:54 Geni Scott RN is Primary Nurse. iw 13:54 Arm band placed on. iw 14:00 Patient has correct armband on for positive identification. iw 14:05 No provider procedures requiring assistance completed. Patient did not have IV access iw during this emergency room visit. 14:10 Frank Shelton MD is Referral Physician. rn 14:34 Provided Education on: . iw Administered Medications: No medications were administered Medication: 14:05 VIS not applicable for this client. iw Outcome: 14:11 Discharge ordered by . rn 14:31 Discharged to home ambulatory, with family, iw 14:31 Condition: good 14:31 Discharge instructions given to patient, family, Instructed on discharge instructions, follow up and referral plans. Demonstrated understanding of instructions, follow-up care, 14:32 Patient left the ED. iw Signatures: Geni Scott RN RN Jose Roberto Baker MD MD rn Mendoza, Itzel im
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
[2023-07-12 14:43] VITALS: BP 132/92; TEMP 99.3; O2SAT 100
== END 2023-07-12 14:32 | disposition home or self-care (01) ==
LOC: ER 13:33
DX: F41.9 Anxiety disorder, unspecified (principal)
CPT/HCPCS: 99282

== ENCOUNTER 2023-07-23 13:42 | Emergency (ER) | payer OTHER ==
--- NOTE | 2023-07-23 13:58 | EDPHYS ---
Physician Documentation [facility] Name: Lona Marie Age: 33 yrs Sex: Female : 1990 Arrival Date: 07/23/2023 Time: 13:42 Bed [id number] Private MD: GUNJAN Physician Aj Doe HPI: 07/23 14:04 This 33 yrs old Female presents to ER via Ambulatory with complaints of Breathing jh7 Difficulty, Nausea. 14:04 Patient reports that some food got stuck in her throat and that she felt that she could jh7 not breathe and needed to vomit. She states that she vomited while checking into the ER and that the piece of food came out. States that she feels fine now.. 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 - Social history:: Smoking status: Patient reports the use of cigarette tobacco products, smokes one-half pack cigarettes per day. ROS: 14:04 Constitutional: Negative for fever, chills, and weight loss, ENT: Negative for injury, jh7 pain, and discharge, Neck: Negative for injury, pain, and swelling, Cardiovascular: Negative for chest pain, palpitations, and edema, Respiratory: Negative for shortness of breath, cough, wheezing, and pleuritic chest pain, Abdomen/GI: Negative for abdominal pain, nausea, vomiting, diarrhea, and constipation, MS/Extremity: Negative for injury and deformity, Skin: Negative for injury, rash, and discoloration, Neuro: Negative for headache, weakness, numbness, tingling, and seizure, 14:04 All other systems are negative, Exam: 14:04 Constitutional: This is a well developed, well nourished patient who is awake, alert, jh7 and in no acute distress. Head/Face: Normocephalic, atraumatic. ENT: Nares patent. No nasal discharge, no septal abnormalities noted. Oropharynx with no redness, swelling, or masses, exudates, or evidence of obstruction, uvula midline. Mucous membranes moist. Neck: Trachea midline, no thyromegaly or masses palpated, and no cervical lymphadenopathy. Supple, full range of motion without nuchal rigidity, or vertebral point tenderness. No Meningismus. Cardiovascular: Regular rate and rhythm with a normal S1 and S2. No gallops, murmurs, or rubs. Normal PMI, no JVD. No pulse deficits. Respiratory: Lungs have equal breath sounds bilaterally, clear to auscultation and percussion. No rales, rhonchi or wheezes noted. No increased work of breathing, no retractions or nasal flaring. Skin: Warm, dry with normal turgor. Normal color with no rashes, no lesions, and no evidence of cellulitis. MS/ Extremity: Pulses equal, no cyanosis. Neurovascular intact. Full, normal range of motion. Neuro: Awake and alert, GCS 15, oriented to person, place, time, and situation. Motor strength 5/5 in all extremities. Sensory grossly intact. Normal gait. Vital Signs: 14:04 BP 132 / 88; Pulse 84; Resp 18; Temp 97.6(O); Pulse Ox 100% ; Weight 67.59 kg; Height 5 nj1 ft. 3 in. ; 14:04 Body Mass Index 26.39 (67.59 kg, 160.02 cm) nj1 MDM: 13:49 Patient medically screened. [facility] 13:55 Differential diagnosis: Anxiety Reaction Foreign body in esophagus, foreign body in jh7 trachea. Data interpreted: Pulse oximetry: is 100 %. Interpretation: normal. Data reviewed: vital signs, nurses notes. Counseling: I had a detailed discussion with the patient and/or guardian regarding the historical points, exam findings, and any diagnostic results supporting the discharge/admit diagnosis, to return to the emergency department if symptoms worsen or persist or if there are any questions or concerns that arise at home. Administered Medications: No medications were administered Disposition Summary: 07/23/23 13:57 Discharge Ordered Notes: Location: Home [facility] Problem: new [facility] Symptoms: are resolved [facility] Condition: Stable [facility] Diagnosis - Foreign body in esophagus [facility] Followup: [facility] - With: Private Physician - When: 2 - 3 days - Reason: Recheck today's complaints Discharge Instructions: - Discharge Summary Sheet [facility] - Swallowed Foreign Body, Adult [facility] Forms: - Medication Reconciliation Form [facility] - Thank You Letter [facility] - Patient Portal Instructions [facility] - Leadership Thank You Letter [facility] Signatures: Yuly Sanders, STRING CUTTER STRING CUTTER [facility] Ange Mackey RN RN nj1
--- OUTSIDE RECORDS SUMMARY | 2023-07-23 14:10 | XMS REPORT | Continuity of Care Document ---
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 DAILY. ity of tablet 10:54: [address] [place] [address] famotidine 2022-09 Yes famotidine U nivers 20 mg 0-05 20 mg ity of tablet 10:54: tablet [address] [place] [address] clonazePAM 2022-09 Yes clonazepam U nivers 0.5 mg 0-05 0.5 mg ity of tablet 10:54: tablet [place] [address] TAKE 1 Medical TABLET BY Branch MOUTH [...] 800 mg ity of tablet 10:54: tablet [address] [place] [address] levETIRAcet 2022-09 Yes TWICE Unive rs am 500 mg 0-05 DAILY. ity of tablet 10:54: [address] [place] [address] famotidine 2022-09 Yes famotidine U nivers 20 mg 0-05 20 mg ity of tablet 10:54: tablet [address] [place] [address] clonazePAM 2022-09 Yes clonazepam U nivers 0.5 mg 0-05 0.5 mg ity of tablet 10:54: tablet [place] [address] TAKE 1 Medical TABLET BY Branch MOUTH [...] 800 mg ity of tablet 10:54: tablet [address] [place] [address] levETIRAcet 2022-09 Yes TWICE Unive rs am 500 mg 0-05 DAILY. ity of tablet 10:54: [address] [place] [address] famotidine 2022-09 Yes famotidine U nivers 20 mg 0-05 20 mg ity of tablet 10:54: tablet [address] clonazePAM 2022-09 Yes clonazepam U nivers 0.5 mg 0-05 0.5 mg ity of tablet 10:54: tablet [place] [address] TAKE 1 Medical TABLET BY [facility] MOUTH EVERY DAY AT BEDTIME NEEDED FOR [...] 800 mg ity of tablet 10:54: tablet [facility] levETIRAcet 2022-09 Yes TWICE Unive rs am 500 mg 0-05 DAILY. ity of tablet 10:54: [facility] famotidine 2022-09 Yes famotidine U nivers 20 mg 0-05 20 mg ity of tablet 10:54: tablet [address] [place] [address] clonazePAM 2022-09 Yes clonazepam U nivers 0.5 [...] 800 mg ity of tablet 10:54: tablet [address] [place] [address] levETIRAcet 2022-09 Yes TWICE Unive rs am 500 mg 0-05 DAILY. ity of tablet 10:54: [address] [place] [address] famotidine 2022-09 Yes famotidine U nivers 20 mg 0-05 20 mg ity of tablet 10:54: tablet [address] [place] [address] clonazePAM 2022-09 Yes clonazepam U nivers 0.5 [...] 800 mg ity of tablet 10:54: tablet [address] [place] [address] levETIRAcet 2022-09 Yes TWICE Unive rs am 500 mg 0-05 DAILY. ity of tablet 10:54: [address] [place] [address] famotidine 2022-09 Yes famotidine U nivers 20 mg 0-05 20 mg ity of tablet 10:54: tablet [address] [place] [address] clonazePAM 2022-09 Yes clonazepam U nivers 0.5 [...] 800 mg ity of tablet 10:54: tablet [address] levETIRAcet 2022-09 Yes TWICE Unive rs am 500 mg 0-05 DAILY. ity of tablet 10:54: [address] famotidine 2022-09 Yes famotidine U nivers 20 mg 0-05 20 mg ity of tablet 10:54: tablet [address] clonazePAM 2022-09 Yes clonazepam U nivers 0.5 mg 0-05 0.5 mg ity of tablet 10:54: tablet [place] [address] TAKE 1 Medical TABLET BY Branch MOUTH [...] 800 mg ity of tablet 10:54: tablet [address] [place] [address] levETIRAcet 2022-09 Yes TWICE Unive rs am 500 mg 0-05 DAILY. ity of tablet 10:54: [address] [place] [address] famotidine 2022-09 Yes famotidine U nivers 20 mg 0-05 20 mg ity of tablet 10:54: tablet [address] [place] [address] clonazePAM 2022-09 Yes clonazepam U nivers 0.5 [...] 800 mg ity of tablet 10:54: tablet [address] [place] [address] levETIRAcet 2022-09 Yes TWICE Unive rs am 500 mg 0-05 DAILY. ity of tablet 10:54: [address] famotidine 2022-09 Yes famotidine U nivers 20 mg 0-05 20 mg ity of tablet 10:54: tablet [address] [place] [address] clonazePAM 2022-09 Yes clonazepam U nivers 0.5 mg 0-05 0.5 mg ity of tablet 10:54: tablet [place] 07 TAKE 1 Medical TABLET BY Branch MOUTH [...] ical ion Branch aerosol inhaler azithromyci Yes [id number] Take two Univers n 03-02 [id number] on first ity of (ZITHROMAX 00:00: day, take [place] Z-OK) 250 00 one a day Medi shanice mg tablet afterwards Bran ch azelastine Yes [id number] 1{spray Use 1 [facility] 137 mcg 03-02 092860 } [place] in ity of (0.1 %) 00:00: each [place] nasal spray 00 nostril in [facility] morning and 1 [place] in the evening. Use in each nostril as directed azithromyci 0 Yes [id number] Take two Univers n 03-02 [id number] on first ity of (ZITHROMAX 00:00: day, take [place] Z-OK) 250 00 one a day Medi shanice mg tablet afterwards Bran ch azelastine 0 Yes [id number] 1{spray Use 1 [facility] 137 mcg 03-02 875804 } [place] in ity of (0.1 %) 00:00: each [place] nasal spray 00 nostril in [facility] morning and 1 [place] in the evening. Use in each nostril as directed azithromyci 0 Yes [id number] Take two Univers n 03-02 [id number] on first ity of (ZITHROMAX 00:00: day, take [place] Z-OK) 250 00 one a day Medi shanice mg tablet afterwards Bran ch azelastine 2023-0 Yes [id number] 1{spray Use 1 [facility] 137 mcg 6-27 [id number] } [place] in ity of (0.1 %) 00:00: each [place] nasal spray 00 nostril in Me dical the Branch morning and 1 [place] in the evening. Use in each nostril as directed azithromyci 2023-0 Yes [id number] Take two Univers n 6-27 [id number] on first ity of (ZITHROMAX 00:00: day, take [place] Z-OK) 250 00 one a day Medi sahnice mg tablet afterwards Bran ch azelastine 2023-0 Yes [id number] 1{spray Use 1 [facility] 137 mcg 6-27 [id number] } [place] in ity of (0.1 %) 00:00: each [place] nasal spray 00 nostril in De [facility] the Branch morning and 1 [place] in the evening. Use in each nostril as directed azithromyci 3-0 Yes [id number] Take two Univers n 6-27 [id number] on first ity of (ZITHROMAX 00:00: day, take [place] Z-OK) 250 00 one a day Medi shanice mg tablet afterwards Bran ch azelastine 3-0 Yes [id number] 1{spray Use 1 [facility] 137 mcg 6-27 [id number] } [place] in ity of (0.1 %) 00:00: each [place] nasal spray 00 nostril in De dical the Branch morning and 1 [place] in the evening. Use in each nostril as directed azithromyci 2023-0 Yes [id number] Take two Univers n 6-27 [id number] on first ity of (ZITHROMAX 00:00: day, take [place] Z-OK) 250 00 one a day Medi shanice mg tablet afterwards Bran ch azelastine 2023-0 Yes [id number] 1{spray Use 1 [facility] 137 mcg 6-27 [id number] } [place] in ity of (0.1 %) 00:00: each [place] nasal spray 00 nostril in De dical the Branch morning and 1 [place] in the evening. Use in each nostril as directed azithromyci 2023-0 Yes [id number] Take two Univers n 6-27 [id number] on first ity of (ZITHROMAX 00:00: day, take [place] Z-OK) 250 00 one a day Medi shanice mg tablet afterwards Bran ch azelastine 2023-0 Yes [id number] 1{spray Use 1 [facility] 137 mcg 6-27 817120 } [place] in ity of (0.1 %) 00:00: each [place] nasal spray 00 nostril in [facility] the Branch morning and 1 [place] in the evening. Use in each nostril as directed azithromyci 2023-0 Yes [id number] Take two Univers n 6-27 [id number] on first ity of (ZITHROMAX 00:00: day, take [place] Z-OK) 250 00 one a day Medi shanice mg tablet afterwards Bran ch azelastine 2023-0 Yes [id number] 1{spray Use 1 [facility] 137 mcg 6-27 [id number] } [place] in ity of (0.1 %) 00:00: each [place] nasal spray 00 nostril in [facility] the [facility] morning and 1 [place] in the evening. Use in each nostril as directed azithromyci 3-0 Yes [id number] Take two Univers n 6-27 [id number] on first ity of (ZITHROMAX 00:00: day, take [place] Z-OK) 250 00 one a day Medi shanice mg tablet afterwards Bran ch azelastine 3-0 Yes [id number] 1{spray Use 1 [facility] 137 mcg 6-27 [id number] } [place] in ity of (0.1 %) 00:00: each [place] nasal spray 00 nostril in [facility] the Branch morning and 1 [place] in the evening. Use in each nostril as directed azithromyci 2023-0 Yes [id number] Take two Univers n 6-27 [id number] on first ity of (ZITHROMAX 00:00: day, take [place] Z-OK) 250 00 one a day Medi shanice mg tablet afterwards Bran ch azelastine 2023-0 Yes [id number] 1{spray Use 1 [facility] 137 mcg 6-27 [id number] } [place] in ity of (0.1 %) 00:00: each [place] nasal spray 00 nostril in Me dical the Branch morning and 1 [place] in the evening. Use in each nostril as directed azelastine 2023-0 Yes [id number] 1{spray Use 1 [facility] 137 mcg 6-27 [id number] } [place] in ity of (0.1 %) 00:00: each [place] nasal spray 00 nostril in De dical the Branch morning and 1 [place] in the evening. Use in each nostril as directed azelastine 2023-0 Yes [id number] 1{spray Use 1 Univers 137 mcg 6-27 [id number] } [place] in ity of (0.1 %) 00:00: each [place] nasal spray 00 nostril in De dical the Branch morning and 1 [place] in the evening. Use in each nostril as directed azelastine 2023-0 Yes [id number] 1{spray Use 1 Univers 137 mcg 6-27 [id number] } [place] in ity of (0.1 %) 00:00: each [place] nasal spray 00 nostril in De dical the Branch morning and 1 [place] in the evening. Use in each nostril as directed azelastine 2023-0 Yes [id number] 1{spray Use 1 Univers 137 mcg 6-27 [id number] } [place] in ity of (0.1 %) 00:00: each [place] nasal spray 00 nostril in De dical the Branch morning and 1 [place] in the evening. Use in each nostril as directed azelastine 2023-0 Yes [id number] 1{spray Use 1 [facility] 137 mcg 6-27 [id number] } [place] in ity of (0.1 %) 00:00: each [place] nasal spray 00 nostril in De dical the Branch morning and 1 [place] in the evening. Use in each nostril as directed azelastine 2023-0 Yes [id number] 1{spray Use 1 Univers 137 mcg 6-27 [id number] } [place] in ity of (0.1 %) 00:00: each [place] nasal spray 00 nostril in De dical the Branch morning and 1 [place] in the evening. Use in each nostril as directed azelastine 2023-0 Yes [id number] 1{spray Use 1 [facility] 137 mcg 6-27 887613 } [place] in ity of (0.1 %) 00:00: each [place] nasal spray 00 nostril in Me dical the Branch morning and 1 [place] in the evening. Use in each nostril as directed azelastine 2023-0 Yes [id number] 1{spray Use 1 [facility] 137 mcg 6-27 [id number] } [place] in ity of (0.1 %) 00:00: each [place] nasal spray 00 nostril in Me dical the Branch morning and 1 [place] in the evening. Use in each nostril as directed azelastine 2023-0 Yes [id number] 1{spray Use 1 [facility] 137 mcg 6-27 [id number] } [place] in ity of (0.1 %) 00:00: each [place] nasal spray 00 nostril in De dical the Branch morning and 1 [place] in the evening. Use in each nostril as directed azelastine 2023-0 Yes [id number] 1{spray Use 1 [facility] 137 mcg 6-27 [id number] } [place] in ity of (0.1 %) 00:00: each [place] nasal spray 00 nostril in De dical the Branch morning and 1 [place] in the evening. Use in each nostril as directed azelastine 2023-0 Yes [id number] 1{spray Use 1 [facility] 137 mcg 6-27 [id number] } [place] in ity of (0.1 %) 00:00: each [place] nasal spray 00 nostril in De dical the Branch morning and 1 [place] in the evening. Use in each nostril as directed azelastine 2023-0 Yes [id number] 1{spray Use 1 [facility] 137 mcg 6-27 [id number] } [place] in ity of (0.1 %) 00:00: each [place] nasal spray 00 nostril in De dical the Branch morning and 1 [place] in the evening. Use in each nostril as directed azithromyci 2022-0 2022- No [id number] Take two Univers n 6-27 06-10 [id number] on first ity of (ZITHROMAX 00:00: 00:00 day, take [place] Z-OK) 250 00 :00 one a day Medi shanice mg tablet afterwards Bran ch azithromyci 2022-0 202- No [id number] Take two Univers n 6-27 06-10 [id number] on first ity of (ZITHROMAX 00:00: 00:00 day, take [place] Z-OK) 250 00 :00 one a day Medi shanice mg tablet afterwards Bran ch morpHINE (4 2022- No 4mg 4 mg, Slow Univers mg/mL) 01-21 IV Push, ity of injection 4 23:45: 23:08 ONCE, 1 [place] mg 00 :00 dose, On Medical [facility]ina Branch 01/21/23 at 1845, Routine ondansetron 2022- No 4mg 4 mg, Slow Univers (ZOFRAN 01-21 IV Push, ity of (PF)) 23:00: 23:08 ONCE, 1 [place] injection 4 00 :00 dose, On Medi shanice mg [facility] 01/21/23 at 1800, LUPE NaCl 0.9% 2022- No 1000mL at 999 Uni vers (NS) IV 01-21 mL/hr, ity of infusion 21:30: 23:45 Intravenou [place] 1,000 mL 00 :00 s, ONCE, 1 Medic al dose, On On License Of [facility] 01/21/23 at 1630, Routine FENTanyl PF No 50ug 50 mcg, Un travis (SUBLIMAZE 01-21 Slow IV ity o f (PF)) 21:15: 20:56 Push, [place] injection 00 :00 ONCE, 1 Medical 50 mcg dose, On On License Of [facility] 01/21/23 at 1615, Routine iopamidol 2022- No [id number] 50mL 50 mL, Univers (ISOVUE 01-21 Intravenou ity o f 370-500 mL) 21:00: 21:02 s, ONCE, 1 [place] injection 00 :00 dose, On Medica l 50 mL Ernestina [facility] 01/21/23 at 1600, Routine ondansetron 2022- No 4mg 4 mg, Slow Univers (ZOFRAN 01-21 IV Push, ity of (PF)) 20:30: 20:55 ONCE, 1 [place] injection 4 00 :00 dose, On Medi shanice mg [facility] 01/21/23 at 1530, LUPE sucralfate 2022- No [id number] 1g Take 1 Univers 1 gram 01-21 [...] [place] tablet 46 :00 Medical Branch maalox:diph 2022-2022- No 15mL 15 mL, Uni vers enhydrAMINE 01-15 Oral, ity of :lidocaine 11:00: 10:58 ONCE, 1 [place] 2 % viscous 00 :00 dose, On Medi shanice 1:1:1 Fri Branch ([facility] 01/15/23 at [facility]) 0600, oral Routine suspension 15 mL maalox:diph 2022-0 Yes [id number] 15mL Take 15 mL Univers enhydrAMINE 5-12 by mouth ity of :lidocaine 00:00: as needed [place] 2 % viscous 00 for Oral Medi shanice 1:1:1 mucositis Branch (EPIGASTRI C PAIN). ondansetron 2022-0 Yes [id number] 4mg Take 1 Univers (ZOFRAN) 4 5-12 tablet by ity of mg tablet 00:00: mouth [place] 00 every 8 Medical (eight) Branch hours as needed for Nausea and Vomiting (N/V). maalox:diph 2022-0 Yes [id number] 15mL Take 15 mL Univers enhydrAMINE 5-12 by mouth ity of :lidocaine 00:00: as needed [place] 2 % viscous 00 for Oral Medi shanice 1:1:1 mucositis Branch (EPIGASTRI C PAIN). ondansetron 2022-0 Yes [id number] 4mg Take 1 Univers (ZOFRAN) 4 5-12 tablet by ity of mg tablet 00:00: mouth [place] 00 every 8 Medical (eight) Branch hours as needed for Nausea and Vomiting (N/V). proMETHazin 2022-0 Yes [id number] 25mg Take 1 Univers e 25 mg 5-12 tablet by ity of tablet 00:00: mouth [place] 00 every 6 Medical (six) Branch hours as needed for Nausea and Vomiting (N/V). sucralfate 2022-0 Yes [id number] 1g Take 1 U nivers 1 gram 5-12 tablet by ity of tablet 00:00: mouth [place] 00 before Medical meals and Branch at bedtime. esomeprazol 2022-0 Yes [id number] 40mg Take 1 Univers e (NEXIUM) 5-12 capsule by ity of 40 mg 00:00: mouth [place] capsule 00 daily with Medica l breakfast. Branch maalox:diph 2022-0 Yes [id number] 15mL Take 15 mL [facility] enhydrAMINE 5-12 by mouth ity of :lidocaine 00:00: as needed [place] 2 % viscous 00 for Oral Medi shanice 1:1:1 mucositis Branch (EPIGASTRI C PAIN). ondansetron 2023-0 Yes [id number] 4mg Take 1 Univers (ZOFRAN) 4 5-12 tablet by ity of mg tablet 00:00: mouth [place] 00 every 8 Medical (eight) Branch hours as needed for Nausea and Vomiting (N/V). proMETHazin 3-0 Yes [id number] 25mg Take 1 Univers e 25 mg 5-12 tablet by ity of tablet 00:00: mouth [place] 00 every 6 Medical (six) Branch hours as needed for Nausea and Vomiting (N/V). sucralfate 3-0 Yes [id number] 1g Take 1 U nivers 1 gram 5-12 tablet by ity of tablet 00:00: mouth [place] 00 before Medical meals and Branch at bedtime. esomeprazol 3-0 Yes [id number] 40mg Take 1 Univers e (NEXIUM) 5-12 capsule by ity of 40 mg 00:00: mouth [place] capsule 00 daily with Medica l breakfast. Branch maalox:diph 3-0 Yes [id number] 15mL Take 15 mL Univers enhydrAMINE 5-12 by mouth ity of :lidocaine 00:00: as needed [place] 2 % viscous 00 for Oral Medi shanice 1:1:1 mucositis Branch (EPIGASTRI C PAIN). proMETHazin 3-0 Yes [id number] 25mg Take 1 Univers e 25 mg 5-12 tablet by ity of tablet 00:00: mouth [place] 00 every 6 Medical (six) Branch hours as needed for Nausea and Vomiting (N/V). sucralfate 3-0 Yes [id number] 1g Take 1 U nivers 1 gram 5-12 tablet by ity of tablet 00:00: mouth [place] 00 before Medical meals and Branch at bedtime. esomeprazol 3-0 Yes [id number] 40mg Take 1 Univers e (NEXIUM) 5-12 capsule by ity of 40 mg 00:00: mouth [place] capsule 00 daily with Medica l breakfast. Branch maalox:diph 3-0 Yes [id number] 15mL Take 15 mL Univers enhydrAMINE 5-12 by mouth ity of :lidocaine 00:00: as needed [place] 2 % viscous 00 for Oral Medi shanice 1:1:1 mucositis Branch (EPIGASTRI C PAIN). proMETHazin 2023-0 Yes [id number] 25mg Take 1 Univers e 25 mg 5-12 tablet by ity of tablet 00:00: mouth [place] 00 every 6 Medical (six) Branch hours as needed for Nausea and Vomiting (N/V). sucralfate 3-0 Yes [id number] 1g Take 1 U nivers 1 gram 5-12 tablet by ity of tablet 00:00: mouth [place] 00 before Medical meals and Branch at bedtime. esomeprazol 3-0 Yes [id number] 40mg Take 1 Univers e (NEXIUM) 5-12 capsule by ity of 40 mg 00:00: mouth [place] capsule 00 daily with Medica l breakfast. Branch maalox:diph 3-0 Yes [id number] 15mL Take 15 mL [facility] enhydrAMINE 5-12 by mouth ity of :lidocaine 00:00: as needed [place] 2 % viscous 00 for Oral Medi shanice 1:1:1 mucositis Branch (EPIGASTRI C PAIN). proMETHazin 2022-0 Yes [id number] 25mg Take 1 Univers e 25 mg 5-12 tablet by ity of tablet 00:00: mouth [place] 00 every 6 Medical (six) Branch hours as needed for Nausea and Vomiting (N/V). sucralfate 2022-0 Yes [id number] 1g Take 1 U nivers 1 gram 5-12 tablet by ity of tablet 00:00: mouth [place] 00 before Medical meals and Branch at bedtime. esomeprazol 3-0 Yes [id number] 40mg Take 1 Univers e (NEXIUM) 5-12 capsule by ity of 40 mg 00:00: mouth [place] capsule 00 daily with Medica l breakfast. Branch maalox:diph 3-0 Yes [id number] 15mL Take 15 mL Univers enhydrAMINE 5-12 by mouth ity of :lidocaine 00:00: as needed [place] 2 % viscous 00 for Oral Medi shanice 1:1:1 mucositis Branch (EPIGASTRI C PAIN). proMETHazin 3-0 Yes [id number] 25mg Take 1 Univers e 25 mg 5-12 tablet by ity of tablet 00:00: mouth [place] 00 every 6 Medical (six) Branch hours as needed for Nausea and Vomiting (N/V). sucralfate 3-0 Yes [id number] 1g Take 1 U nivers 1 gram 5-12 tablet by ity of tablet 00:00: mouth [place] 00 before Medical meals and Branch at bedtime. esomeprazol 3-0 Yes [id number] 40mg Take 1 Univers e (NEXIUM) 5-12 capsule by ity of 40 mg 00:00: mouth [place] capsule 00 daily with Medica l breakfast. Branch maalox:diph 2022-0 Yes [id number] 15mL Take 15 mL Univers enhydrAMINE 5-12 by mouth ity of :lidocaine 00:00: as needed [place] 2 % viscous 00 for Oral Medi shanice 1:1:1 mucositis Branch (EPIGASTRI C PAIN). proMETHazin 2022-0 Yes [id number] 25mg Take 1 Univers e 25 mg 5-12 tablet by ity of tablet 00:00: mouth [place] 00 every 6 Medical (six) Branch hours as needed for Nausea and Vomiting (N/V). sucralfate 2022-0 Yes [id number] 1g Take 1 U nivers 1 gram 5-12 tablet by ity of tablet 00:00: mouth [place] 00 before Medical meals and Branch at bedtime. esomeprazol 2022-0 Yes [id number] 40mg Take 1 Univers e (NEXIUM) 5-12 capsule by ity of 40 mg 00:00: mouth [place] capsule 00 daily with Medica l breakfast. Branch maalox:diph 2022-0 Yes [id number] 15mL Take 15 mL Univers enhydrAMINE 5-12 by mouth ity of :lidocaine 00:00: as needed [place] 2 % viscous 00 for Oral Medi shanice 1:1:1 mucositis Branch (EPIGASTRI C PAIN). proMETHazin 3-0 Yes [id number] 25mg Take 1 Univers e 25 mg 5-12 tablet by ity of tablet 00:00: mouth [place] 00 every 6 Medical (six) Branch hours as needed for Nausea and Vomiting (N/V). sucralfate 2023-0 Yes [id number] 1g Take 1 U nivers 1 gram 5-12 tablet by ity of tablet 00:00: mouth [place] 00 before Medical meals and Branch at bedtime. esomeprazol 3-0 Yes [id number] 40mg Take 1 Univers e (NEXIUM) 5-12 capsule by ity of 40 mg 00:00: mouth [place] capsule 00 daily with Medica l breakfast. Branch maalox:diph 3-0 Yes [id number] 15mL Take 15 mL [facility] enhydrAMINE 5-12 by mouth ity of :lidocaine 00:00: as needed [place] 2 % viscous 00 for Oral Medi shanice 1:1:1 mucositis Branch (EPIGASTRI C PAIN). proMETHazin 3-0 Yes [id number] 25mg Take 1 Univers e 25 mg 5-12 tablet by ity of tablet 00:00: mouth [place] 00 every 6 Medical (six) Branch hours as needed for Nausea and Vomiting (N/V). sucralfate 3-0 Yes [id number] 1g Take 1 U nivers 1 gram 5-12 tablet by ity of tablet 00:00: mouth [place] 00 before Medical meals and Branch at bedtime. esomeprazol 3-0 Yes [id number] 40mg Take 1 Univers e (NEXIUM) 5-12 capsule by ity of 40 mg 00:00: mouth [place] capsule 00 daily with Medica l breakfast. Branch maalox:diph 2022-0 Yes [id number] 15mL Take 15 mL [facility] enhydrAMINE 5-12 by mouth ity of :lidocaine 00:00: as needed [place] 2 % viscous 00 for Oral Medi shanice 1:1:1 mucositis Branch (EPIGASTRI C PAIN). proMETHazin 3-0 Yes [id number] 25mg Take 1 Univers e 25 mg 5-12 tablet by ity of tablet 00:00: mouth [place] 00 every 6 Medical (six) Branch hours as needed for Nausea and Vomiting (N/V). sucralfate 3-0 Yes [id number] 1g Take 1 U nivers 1 gram 5-12 tablet by ity of tablet 00:00: mouth [place] 00 before Medical meals and Branch at bedtime. esomeprazol 2023-0 Yes [id number] 40mg Take 1 Univers e (NEXIUM) 5-12 capsule by ity of 40 mg 00:00: mouth [place] capsule 00 daily with Medica l breakfast. Branch maalox:diph 2023-0 Yes [id number] 15mL Take 15 mL [facility] enhydrAMINE 5-12 by mouth ity of :lidocaine 00:00: as needed [place] 2 % viscous 00 for Oral Medi shanice 1:1:1 mucositis Branch (EPIGASTRI C PAIN). proMETHazin 3-0 Yes [id number] 25mg Take 1 Univers e 25 mg 5-12 tablet by ity of tablet 00:00: mouth [place] 00 every 6 Medical (six) Branch hours as needed for Nausea and Vomiting (N/V). sucralfate 2023-0 Yes [id number] 1g Take 1 U nivers 1 gram 5-12 tablet by ity of tablet 00:00: mouth [place] 00 before Medical meals and Branch at bedtime. esomeprazol 3-0 Yes [id number] 40mg Take 1 Univers e (NEXIUM) 5-12 capsule by ity of 40 mg 00:00: mouth [place] capsule 00 daily with Medica l breakfast. Branch maalox:diph 3-0 Yes [id number] 15mL Take 15 mL [facility] enhydrAMINE 5-12 by mouth ity of :lidocaine 00:00: as needed [place] 2 % viscous 00 for Oral Medi shanice 1:1:1 mucositis Branch (EPIGASTRI C PAIN). proMETHazin 3-0 Yes [id number] 25mg Take 1 Univers e 25 mg 5-12 tablet by ity of tablet 00:00: mouth [place] 00 every 6 Medical (six) Branch hours as needed for Nausea and Vomiting (N/V). sucralfate 3-0 Yes [id number] 1g Take 1 U nivers 1 gram 5-12 tablet by ity of tablet 00:00: mouth [place] 00 before Medical meals and Branch at bedtime. esomeprazol 3-0 Yes [id number] 40mg Take 1 Univers e (NEXIUM) 5-12 capsule by ity of 40 mg 00:00: mouth [place] capsule 00 daily with Medica l breakfast. Branch maalox:diph 2023-0 Yes [id number] 15mL Take 15 mL [facility] enhydrAMINE 5-12 by mouth ity of :lidocaine 00:00: as needed [place] 2 % viscous 00 for Oral Medi shanice 1:1:1 mucositis Branch (EPIGASTRI C PAIN). proMETHazin 3-0 Yes [id number] 25mg Take 1 Univers e 25 mg 5-12 tablet by ity of tablet 00:00: mouth [place] 00 every 6 Medical (six) Branch hours as needed for Nausea and Vomiting (N/V). sucralfate 2023-0 Yes [id number] 1g Take 1 U nivers 1 gram 5-12 tablet by ity of tablet 00:00: mouth [place] 00 before Medical meals and Branch at bedtime. esomeprazol 2023-0 Yes [id number] 40mg Take 1 Univers e (NEXIUM) 5-12 capsule by ity of 40 mg 00:00: mouth [place] capsule 00 daily with Medica l breakfast. Branch maalox:diph 3-0 Yes [id number] 15mL Take 15 mL [facility] enhydrAMINE 5-12 by mouth ity of :lidocaine 00:00: as needed [place] 2 % viscous 00 for Oral Medi shanice 1:1:1 mucositis Branch (EPIGASTRI C PAIN). proMETHazin 3-0 Yes [id number] 25mg Take 1 [facility] e 25 mg 5-12 tablet by ity of tablet 00:00: mouth [place] 00 every 6 Medical (six) Branch hours as needed for Nausea and Vomiting (N/V). sucralfate 3-0 Yes [id number] 1g Take 1 U nivers 1 gram 5-12 tablet by ity of tablet 00:00: mouth [place] 00 before Medical meals and Branch at bedtime. esomeprazol 3-0 Yes [id number] 40mg Take 1 [facility] e (NEXIUM) 5-12 capsule by ity of 40 mg 00:00: mouth [place] capsule 00 daily with Medica l breakfast. Branch maalox:diph 3-0 Yes [id number] 15mL Take 15 mL [facility] enhydrAMINE 5-12 by mouth ity of :lidocaine 00:00: as needed [place] 2 % viscous 00 for Oral Medi shanice 1:1:1 mucositis Branch (EPIGASTRI C PAIN). proMETHazin 2023-0 Yes [id number] 25mg Take 1 [facility] e 25 mg 5-12 tablet by ity of tablet 00:00: mouth [place] 00 every 6 Medical (six) Branch hours as needed for Nausea and Vomiting (N/V). sucralfate 2023-0 Yes [id number] 1g Take 1 U nivers 1 gram 5-12 tablet by ity of tablet 00:00: mouth [place] 00 before Medical meals and Branch at bedtime. esomeprazol 3-0 Yes [id number] 40mg Take 1 [facility] e (NEXIUM) 5-12 capsule by ity of 40 mg 00:00: mouth [place] capsule 00 daily with Medica l breakfast. Branch maalox:diph 2022-0 Yes [id number] 15mL Take 15 mL [facility] enhydrAMINE 5-12 by mouth ity of :lidocaine 00:00: as needed [place] 2 % viscous 00 for Oral Medi shanice 1:1:1 mucositis Branch (EPIGASTRI C PAIN). proMETHazin 2022-0 Yes [id number] 25mg Take 1 [facility] e 25 mg 5-12 tablet by ity of tablet 00:00: mouth [place] 00 every 6 Medical (six) Branch hours as needed for Nausea and Vomiting (N/V). sucralfate 2022-0 Yes [id number] 1g Take 1 U nivers 1 gram 5-12 tablet by ity of tablet 00:00: mouth [place] 00 before Medical meals and Branch at bedtime. esomeprazol 2022-0 Yes [id number] 40mg Take 1 [facility] e (NEXIUM) 5-12 capsule by ity of 40 mg 00:00: mouth [place] capsule 00 daily with Medica l breakfast. Branch maalox:diph 2022-0 Yes [id number] 15mL Take 15 mL [facility] enhydrAMINE 5-12 by mouth ity of :lidocaine 00:00: as needed [place] 2 % viscous 00 for Oral Medi shanice 1:1:1 mucositis Branch (EPIGASTRI C PAIN). proMETHazin 2022-0 Yes [id number] 25mg Take 1 [facility] e 25 mg 5-12 tablet by ity of tablet 00:00: mouth [place] 00 every 6 Medical (six) Branch hours as needed for Nausea and Vomiting (N/V). sucralfate 2023-0 Yes [id number] 1g Take 1 U nivers 1 gram 5-12 tablet by ity of tablet 00:00: mouth [place] 00 before Medical meals and Branch at bedtime. esomeprazol 2023-0 Yes [id number] 40mg Take 1 [facility] e (NEXIUM) 5-12 capsule by ity of 40 mg 00:00: mouth [place] capsule 00 daily with Medica l breakfast. Branch maalox:diph 2023-0 Yes [id number] 15mL Take 15 mL [facility] enhydrAMINE 5-12 by mouth ity of :lidocaine 00:00: as needed [place] 2 % viscous 00 for Oral Medi shanice 1:1:1 mucositis Branch (EPIGASTRI C PAIN). proMETHazin 2022-0 Yes [id number] 25mg Take 1 [facility] e 25 mg 5-12 tablet by ity of tablet 00:00: mouth [place] 00 every 6 Medical (six) Branch hours as needed for Nausea and Vomiting (N/V). sucralfate 3-0 Yes [id number] 1g Take 1 U nivers 1 gram 5-12 tablet by ity of tablet 00:00: mouth [place] 00 before Medical meals and Branch at bedtime. esomeprazol 3-0 Yes [id number] 40mg Take 1 [facility] e (NEXIUM) 5-12 capsule by ity of 40 mg 00:00: mouth [place] capsule 00 daily with Medica l breakfast. Branch maalox:diph 2022-0 Yes [id number] 15mL Take 15 mL [facility] enhydrAMINE 5-12 by mouth ity of :lidocaine 00:00: as needed [place] 2 % viscous 00 for Oral Medi shanice 1:1:1 mucositis Branch (EPIGASTRI C PAIN). proMETHazin 2022-0 Yes [id number] 25mg Take 1 [facility] e 25 mg 5-12 tablet by ity of tablet 00:00: mouth [place] 00 every 6 Medical (six) Branch hours as needed for Nausea and Vomiting (N/V). sucralfate 3-0 Yes [id number] 1g Take 1 U nivers 1 gram 5-12 tablet by ity of tablet 00:00: mouth [place] 00 before Medical meals and Branch at bedtime. esomeprazol 3-0 Yes [id number] 40mg Take 1 [facility] e (NEXIUM) 5-12 capsule by ity of 40 mg 00:00: mouth [place] capsule 00 daily with Medica l breakfast. Branch maalox:diph 3-0 Yes [id number] 15mL Take 15 mL [facility] enhydrAMINE 5-12 by mouth ity of :lidocaine 00:00: as needed [place] 2 % viscous 00 for Oral Medi shanice 1:1:1 mucositis Branch (EPIGASTRI C PAIN). proMETHazin 3-0 Yes [id number] 25mg Take 1 [facility] e 25 mg 5-12 tablet by ity of tablet 00:00: mouth [place] 00 every 6 Medical (six) Branch hours as needed for Nausea and Vomiting (N/V). sucralfate 2023-0 Yes [id number] 1g Take 1 U nivers 1 gram 5-12 tablet by ity of tablet 00:00: mouth [place] 00 before Medical meals and Branch at bedtime. esomeprazol 2023-0 Yes [id number] 40mg Take 1 [facility] e (NEXIUM) 5-12 capsule by ity of 40 mg 00:00: mouth [place] capsule 00 daily with Medica l breakfast. Branch maalox:diph 2023-0 Yes [id number] 15mL Take 15 mL [facility] enhydrAMINE 5-12 by mouth ity of :lidocaine 00:00: as needed [place] 2 % viscous 00 for Oral Medi shanice 1:1:1 mucositis Branch (EPIGASTRI C PAIN). proMETHazin 3-0 Yes [id number] 25mg Take 1 [facility] e 25 mg 5-12 tablet by ity of tablet 00:00: mouth [place] 00 every 6 Medical (six) Branch hours as needed for Nausea and Vomiting (N/V). sucralfate 3-0 Yes [id number] 1g Take 1 U nivers 1 gram 5-12 tablet by ity of tablet 00:00: mouth [place] 00 before Medical meals and Branch at bedtime. esomeprazol 3-0 Yes [id number] 40mg Take 1 [facility] e (NEXIUM) 5-12 capsule by ity of 40 mg 00:00: mouth [place] capsule 00 daily with Medica l breakfast. Branch maalox:diph 3-0 Yes [id number] 15mL Take 15 mL [facility] enhydrAMINE 5-12 by mouth ity of :lidocaine 00:00: as needed [place] 2 % viscous 00 for Oral Medi shanice 1:1:1 mucositis Branch (EPIGASTRI C PAIN). proMETHazin 3-0 Yes [id number] 25mg Take 1 [facility] e 25 mg 5-12 tablet by ity of tablet 00:00: mouth [place] 00 every 6 Medical (six) Branch hours as needed for Nausea and Vomiting (N/V). sucralfate 2023-0 Yes [id number] 1g Take 1 U nivers 1 gram 5-12 tablet by ity of tablet 00:00: mouth [place] 00 before Medical meals and Branch at bedtime. esomeprazol 3-0 Yes [id number] 40mg Take 1 [facility] e (NEXIUM) 5-12 capsule by ity of 40 mg 00:00: mouth [place] capsule 00 daily with Medica l breakfast. Branch maalox:diph 3-0 Yes [id number] 15mL Take 15 mL [facility] enhydrAMINE 5-12 by mouth ity of :lidocaine 00:00: as needed [place] 2 % viscous 00 for Oral Medi shanice 1:1:1 mucositis Branch (EPIGASTRI C PAIN). proMETHazin 3-0 Yes [id number] 25mg Take 1 [facility] e 25 mg 5-12 tablet by ity of tablet 00:00: mouth [place] 00 every 6 Medical (six) Branch hours as needed for Nausea and Vomiting (N/V). sucralfate 2022-0 Yes [id number] 1g Take 1 U nivers 1 gram 5-12 tablet by ity of tablet 00:00: mouth [place] 00 before Medical meals and Branch at bedtime. esomeprazol 2022-0 Yes [id number] 40mg Take 1 [facility] e (NEXIUM) 5-12 capsule by ity of 40 mg 00:00: mouth [place] capsule 00 daily with Medica l breakfast. Branch maalox:diph 3-0 Yes [id number] 15mL Take 15 mL [facility] enhydrAMINE 5-12 by mouth ity of :lidocaine 00:00: as needed [place] 2 % viscous 00 for Oral Medi shanice 1:1:1 mucositis Branch (EPIGASTRI C PAIN). proMETHazin 3-0 Yes [id number] 25mg Take 1 [facility] e 25 mg 5-12 tablet by ity of tablet 00:00: mouth [place] 00 every 6 Medical (six) Branch hours as needed for Nausea and Vomiting (N/V). sucralfate 2023-0 Yes [id number] 1g Take 1 U nivers 1 gram 5-12 tablet by ity of tablet 00:00: mouth [place] 00 before Medical meals and Branch at bedtime. esomeprazol 2023-0 Yes [id number] 40mg Take 1 [facility] e (NEXIUM) 5-12 capsule by ity of 40 mg 00:00: mouth [place] capsule 00 daily with Medica l breakfast. Branch ondansetron 2022- No [id number] 4mg Take 1 [facility] (ZOFRAN) 4 01-15- tablet by ity of mg tablet 00:00: 00:00 mouth [place] 00 :00 every 8 Medical (eight) Branch hours as needed for Nausea and Vomiting (N/V). proMETHazin 2022- No [id number] 25mg Take 1 [facility] e 25 mg 01-15-12 tablet by ity of tablet 00:00: 00:00 mouth [place] 00 :00 every 6 Medical (six) Branch hours as needed for Nausea and Vomiting (N/V). sucralfate 2022- No [id number] 1g Take 1 [facility] 1 gram 01-15-12 tablet by ity of tablet 00:00: 00:00 mouth [place] 00 :00 before Medical meals and Branch at bedtime. esomeprazol 2022- No [id number] 40mg Take 1 [facility] e (NEXIUM) 01-15-12 capsule by it y of 40 mg [...] 0145, 15 mL Routine iopamidol 2022- No [id number] 70mL 70 mL, Univers (ISOVUE 12-30 Intravenou ity o f 370-500 mL) 17:30: 17:25 s, ONCE, 1 [place] injection 00 :00 dose, On Medica l 70 mL Wed Branch 12/30/22 at 1230, Routine nitroglycer 2022- No [id number] .8mg 0.8 mg, Univers in 12-30 Sublingual ity of (NITROSTAT) 17:15: 17:15 , ONCE, 1 [place] sublingual 00 :00 dose, On Medic al tablet 0.8 Wed Branch mg 12/30/22 at 1215, Routine metoprolol No [id number] 100mg 100 mg, [facility] tartrate 12-30 Oral, ity of (LOPRESSOR) 16:15: 16:41 ONCE, 1 [place] tablet 100 00 :00 dose, On Medic al mg [facility] Branch 12/30/22 at 1141, Routine valACYclovi Yes [id number] 1g Take 1 Univers r 1 gram 4-21 tablet by ity of tablet 00:00: mouth in [place] [address] the [facility] morning [place] and 1 tablet at noon and 1 tablet in the evening. valACYclovi Yes [id number] 1g Take 1 [facility] r 1 gram 4-21 tablet by ity of tablet 00:00: mouth in [address] and 1 tablet at noon and 1 tablet in the evening. valACYclovi Yes [id number] 1g Take 1 [facility] r 1 gram 4-21 tablet by ity of tablet 00:00: mouth in [place] [address] [facility] and 1 tablet at noon and 1 tablet in the evening. valACYclovi Yes [id number] 1g Take 1 [facility] r 1 gram 4-21 tablet by ity of tablet 00:00: mouth in [place] [address] [facility] and 1 tablet at noon and 1 tablet in the evening. valACYclovi 0 Yes [id number] 1g Take 1 [facility] r 1 gram 4-21 tablet by ity of tablet 00:00: mouth in [address] and 1 tablet at noon and 1 tablet in the evening. valACYclovi 0 Yes [id number] 1g Take 1 [facility] r 1 gram 4-21 tablet by ity of tablet 00:00: mouth in [place] [address] [facility] and 1 tablet at noon and 1 tablet in the evening. valACYclovi 0 Yes [id number] 1g Take 1 [facility] r 1 gram 4-21 tablet by ity of tablet 00:00: mouth in [address] and 1 tablet at noon and 1 tablet in the evening. valACYclovi 0 Yes [id number] 1g Take 1 [facility] r 1 gram 4-21 tablet by ity of tablet 00:00: mouth in [place] 00 the Medical morning Branch and 1 tablet at noon and 1 tablet in the evening. valACYclovi 2022-0 Yes [id number] 1g Take 1 [facility] r 1 gram 4-21 tablet by ity of tablet 00:00: mouth in [place] 00 the Medical morning Branch and 1 tablet at noon and 1 tablet in the evening. valACYclovi 0 Yes [id number] 1g Take 1 [facility] r 1 gram 4-21 tablet by ity of tablet 00:00: mouth in [place] 00 the Medical morning Branch and 1 tablet at noon and 1 tablet in the evening. valACYclovi Yes [id number] 1g Take 1 [facility] r 1 gram 4-21 tablet by ity of tablet 00:00: mouth in [place] 00 the Medical morning Branch and 1 tablet at noon and 1 tablet in the evening. valACYclovi Yes [id number] 1g Take 1 [facility] r 1 gram 4-21 tablet by ity of tablet 00:00: mouth in [place] 00 the Medical morning Branch and 1 tablet at noon and 1 tablet in the evening. valACYclovi 0 Yes [id number] 1g Take 1 [facility] r 1 gram 4-21 tablet by ity of tablet 00:00: mouth in [place] 00 the Medical morning Branch and 1 tablet at noon and 1 tablet in the evening. valACYclovi Yes [id number] 1g Take 1 [facility] r 1 gram 4-21 tablet by ity of tablet 00:00: mouth in [place] 00 the Medical morning Branch and 1 tablet at noon and 1 tablet in the evening. valACYclovi 2022- No [id number] 1g Take 1 Univers r 1 gram 4-21 05-12 tablet by ity o f tablet 00:00: 00:00 mouth in [place] 00 :00 the Medical morning Branch and 1 tablet at noon and 1 tablet in the evening. valACYclovi 0 2022- No [id number] 1g Take 1 Univers r 1 gram 4-21 04-29 tablet by ity o f tablet 00:00: 04:59 mouth in [place] 00 :00 the Medical morning Branch and 1 tablet at noon and 1 tablet in the evening. Do all this for 7 days. valACYclovi 0 2022- No [id number] 1g Take 1 Univers r 1 gram 4-21 04-21 tablet by ity o f tablet 00:00: 00:00 mouth in [place] 00 :00 the Medical morning Branch and 1 tablet at noon and 1 tablet in the evening. Do all this for 7 days. levETIRAcet 2022-0 Yes TWICE Unive rs am 500 mg 4-18 DAILY. ity of tablet 09:12: [address] gabapentin 2022-0 Yes gabapentin U nivers 300 mg 4-18 300 mg ity of capsule 09:12: capsule [address] famotidine 2022-0 Yes famotidine U nivers 20 mg 4-18 20 mg ity of tablet 09:12: tablet [address] clonazePAM 2022-0 Yes clonazepam U nivers 0.5 mg 4-18 0.5 mg ity of tablet 09:12: tablet [place] [address] TAKE 1 Medical TABLET BY Branch MOUTH EVERY DAY AT BEDTIME NEEDED FOR SEVERE ANXIETY/PA STACEY ATTACK buPROPion 2022-0 Yes 300mg Take 1 Unive rs XL 300 mg 4-18 tablet by ity o f 24 hr 09:12: mouth. [address] buprenorphi Yes [place] [facility] vers ne [...] Med ical ion Branch aerosol inhaler levETIRAcet 2022- Yes TWICE Unive rs am 500 mg 4-18 DAILY. ity of tablet 09:12: [address] gabapentin 2022-0 Yes gabapentin U nivers 300 mg 4-18 300 mg ity of capsule 09:12: capsule [address] famotidine 2022-0 Yes famotidine U nivers 20 mg 4-18 20 mg ity of tablet 09:12: tablet [address] clonazePAM 0 Yes clonazepam U nivers 0.5 mg 4-18 0.5 mg ity of tablet 09:12: tablet [place] 14 TAKE 1 Medical TABLET BY Branch MOUTH EVERY DAY AT BEDTIME NEEDED FOR SEVERE ANXIETY/PA STACEY ATTACK buPROPion 2022-0 Yes 300mg Take 1 Unive rs XL 300 mg 4-18 tablet by ity o f 24 hr 09:12: mouth. [place] tablet 14 [facility] buprenorphi Yes [place] [facility] vers ne HCL [...] mg 4-18 DAILY. ity of tablet 09:12: [address] gabapentin Yes gabapentin U nivers 300 mg 4-18 300 mg ity of capsule 09:12: capsule [address] famotidine 0 Yes famotidine U nivers 20 mg 4-18 20 mg ity of tablet 09:12: tablet [address] clonazePAM 2022-0 Yes clonazepam U nivers 0.5 mg 4-18 0.5 mg ity of tablet 09:12: tablet [place] 14 TAKE 1 Medical TABLET BY Branch MOUTH EVERY DAY AT BEDTIME NEEDED FOR SEVERE ANXIETY/PA STACEY ATTACK buPROPion 2022-0 Yes 300mg Take 1 Unive rs XL 300 mg 4-18 tablet by ity o f 24 hr 09:12: mouth. [place] tablet 14 [facility] buprenorphi 2022-0 Yes [place] [facility] vers ne [...] mg 4-18 DAILY. ity of tablet 09:12: [address] gabapentin Yes gabapentin U nivers 300 mg 4-18 300 mg ity of capsule 09:12: capsule [address] famotidine Yes famotidine U nivers 20 mg 4-18 20 mg ity of tablet 09:12: tablet [address] clonazePAM Yes clonazepam U nivers 0.5 mg 4-18 0.5 mg ity of tablet 09:12: tablet [place] [address] TAKE 1 Medical TABLET BY Branch MOUTH EVERY DAY AT BEDTIME NEEDED FOR SEVERE ANXIETY/PA STACEY ATTACK buPROPion Yes 300mg Take 1 Unive rs XL 300 mg 4-18 tablet by ity o f 24 hr 09:12: mouth. [place] tablet 14 [facility] buprenorphi Yes [place] [facility] vers ne HCL [...] mg 4-18 DAILY. ity of tablet 09:12: [address] gabapentin 2022-0 Yes gabapentin U nivers 300 mg 4-18 300 mg ity of capsule 09:12: capsule [address] famotidine 2022-0 Yes famotidine U nivers 20 mg 4-18 20 mg ity of tablet 09:12: tablet [address] clonazePAM 2022-0 Yes clonazepam U nivers 0.5 mg 4-18 0.5 mg ity of tablet 09:12: tablet [place] 14 TAKE 1 Medical TABLET BY Branch MOUTH EVERY DAY AT BEDTIME NEEDED FOR SEVERE ANXIETY/PA STACEY ATTACK buPROPion 2022-0 Yes 300mg Take 1 Unive rs XL 300 mg 4-18 tablet by ity o f 24 hr 09:12: mouth. [address] buprenorphi 0 Yes [place] [facility] vers [...] mg 4-18 DAILY. ity of tablet 09:12: [address] gabapentin 2022-0 Yes gabapentin U nivers 300 mg 4-18 300 mg ity of capsule 09:12: capsule [address] famotidine 2022-0 Yes famotidine U nivers 20 mg 4-18 20 mg ity of tablet 09:12: tablet [address] clonazePAM 2022-0 Yes clonazepam U nivers 0.5 mg 4-18 0.5 mg ity of tablet 09:12: tablet [place] [address] TAKE 1 Medical TABLET BY Branch MOUTH EVERY DAY AT BEDTIME NEEDED FOR SEVERE ANXIETY/PA STACEY ATTACK buPROPion Yes 300mg Take 1 Unive rs XL 300 mg 4-18 tablet by ity o f 24 hr 09:12: mouth. [place] tablet 14 [facility] buprenorphi Yes [place] [facility] vers ne HCL [...] mg 4-18 DAILY. ity of tablet 09:12: [address] gabapentin Yes gabapentin U nivers 300 mg 4-18 300 mg ity of capsule 09:12: capsule [address] famotidine Yes famotidine U nivers 20 mg 4-18 20 mg ity of tablet 09:12: tablet [address] clonazePAM Yes clonazepam U nivers 0.5 mg 4-18 0.5 mg ity of tablet 09:12: tablet [place] [address] TAKE 1 Medical TABLET BY Branch MOUTH EVERY DAY AT BEDTIME NEEDED FOR SEVERE ANXIETY/PA STACEY ATTACK buPROPion Yes 300mg Take 1 Unive rs XL 300 mg 4-18 tablet by ity o f 24 hr 09:12: mouth. [place] tablet 14 [facility] buprenorphi Yes [place] [facility] vers ne HCL [...] mg 4-18 DAILY. ity of tablet 09:12: [address] gabapentin Yes gabapentin U nivers 300 mg 4-18 300 mg ity of capsule 09:12: capsule [address] famotidine Yes famotidine U nivers 20 mg 4-18 20 mg ity of tablet 09:12: tablet [address] clonazePAM Yes clonazepam U nivers 0.5 mg 4-18 0.5 mg ity of tablet 09:12: tablet [place] [address] TAKE 1 Medical TABLET BY Branch MOUTH EVERY DAY AT BEDTIME NEEDED FOR SEVERE ANXIETY/PA STACEY ATTACK buPROPion Yes 300mg Take 1 Unive rs XL 300 mg 4-18 tablet by ity o f 24 hr 09:12: mouth. [address] buprenorphi Yes [place] [facility] vers ne [...] mg 4-18 DAILY. ity of tablet 09:12: [address] gabapentin Yes gabapentin U nivers 300 mg 4-18 300 mg ity of capsule 09:12: capsule [address] famotidine 0 Yes famotidine U nivers 20 mg 4-18 20 mg ity of tablet 09:12: tablet [address] clonazePAM Yes clonazepam U nivers 0.5 mg 4-18 0.5 mg ity of tablet 09:12: tablet [place] [address] TAKE 1 Medical TABLET BY Branch MOUTH EVERY DAY AT BEDTIME NEEDED FOR SEVERE ANXIETY/PA STACEY ATTACK buPROPion 0 Yes 300mg Take 1 Unive rs XL 300 mg 4-18 tablet by ity o f 24 hr 09:12: mouth. [place] tablet [address] [place] [address] buprenorphi Yes [place] [facility] vers ne HCL [...] mg 4-18 DAILY. ity of tablet 09:12: [address] gabapentin Yes gabapentin U nivers 300 mg 4-18 300 mg ity of capsule 09:12: capsule [address] famotidine 0 Yes famotidine U nivers 20 mg 4-18 20 mg ity of tablet 09:12: tablet [address] clonazePAM 0 Yes clonazepam U nivers 0.5 mg 4-18 0.5 mg ity of tablet 09:12: tablet [place] [address] TAKE 1 Medical TABLET BY Branch MOUTH EVERY DAY AT BEDTIME NEEDED FOR SEVERE ANXIETY/PA STACEY ATTACK buPROPion 2022-0 Yes 300mg Take 1 Unive rs XL 300 mg 4-18 tablet by ity o f 24 hr 09:12: mouth. [place] tablet 14 [facility] buprenorphi Yes [place] [facility] vers ne HCL [...] mg 4-18 DAILY. ity of tablet 09:12: [address] gabapentin Yes gabapentin U nivers 300 mg 4-18 300 mg ity of capsule 09:12: capsule [address] famotidine Yes famotidine U nivers 20 mg 4-18 20 mg ity of tablet 09:12: tablet [address] clonazePAM Yes clonazepam U nivers 0.5 mg 4-18 0.5 mg ity of tablet 09:12: tablet [place] [address] TAKE 1 Medical TABLET BY Branch MOUTH EVERY DAY AT BEDTIME NEEDED FOR SEVERE ANXIETY/PA STACEY ATTACK buPROPion Yes 300mg Take 1 Unive rs XL 300 mg 4-18 tablet by ity o f 24 hr 09:12: mouth. [address] buprenorphi Yes [place] [facility] vers ne [...] mg 4-18 DAILY. ity of tablet 09:12: [address] gabapentin 2022-0 Yes gabapentin U nivers 300 mg 4-18 300 mg ity of capsule 09:12: capsule [address] famotidine 2022-0 Yes famotidine U nivers 20 mg 4-18 20 mg ity of tablet 09:12: tablet [address] clonazePAM 2022-0 Yes clonazepam U nivers 0.5 mg 4-18 0.5 mg ity of tablet 09:12: tablet [place] [address] TAKE 1 Medical TABLET BY Branch MOUTH EVERY DAY AT BEDTIME NEEDED FOR SEVERE ANXIETY/PA STACEY ATTACK buPROPion 2022-0 Yes 300mg Take 1 Unive rs XL 300 mg 4-18 tablet by ity o f 24 hr 09:12: mouth. [address] buprenorphi Yes [place] [facility] vers ne [...] mg 4-18 DAILY. ity of tablet 09:12: [address] gabapentin 2022-0 Yes gabapentin U nivers 300 mg 4-18 300 mg ity of capsule 09:12: capsule [address] famotidine 2022-0 Yes famotidine U nivers 20 mg 4-18 20 mg ity of tablet 09:12: tablet [address] clonazePAM 2022-0 Yes clonazepam U nivers [...] mg 4-18 DAILY. ity of tablet 09:12: [address] gabapentin Yes gabapentin U nivers 300 mg 4-18 300 mg ity of capsule 09:12: capsule [address] famotidine Yes famotidine U nivers 20 mg 4-18 20 mg ity of tablet 09:12: tablet [address] clonazePAM Yes clonazepam U nivers 0.5 mg 4-18 0.5 mg ity of tablet 09:12: tablet [place] [address] TAKE 1 Medical TABLET BY Branch MOUTH [...] mg 4-18 DAILY. ity of tablet 09:12: [address] gabapentin 0 Yes gabapentin U nivers 300 mg 4-18 300 mg ity of capsule 09:12: capsule [address] famotidine 2022-0 Yes famotidine U nivers 20 mg 4-18 20 mg ity of tablet 09:12: tablet [address] clonazePAM Yes clonazepam U nivers 0.5 [...] mg 4-18 DAILY. ity of tablet 09:12: [address] gabapentin Yes gabapentin U nivers 300 mg 4-18 300 mg ity of capsule 09:12: capsule [address] famotidine 2022-0 Yes famotidine U nivers 20 mg 4-18 20 mg ity of tablet 09:12: tablet [address] clonazePAM 2022-0 Yes clonazepam U nivers [...] mg 4-18 DAILY. ity of tablet 09:12: [address] gabapentin Yes gabapentin U nivers 300 mg 4-18 300 mg ity of capsule 09:12: capsule [address] famotidine Yes famotidine U nivers 20 mg 4-18 20 mg ity of tablet 09:12: tablet [address] clonazePAM Yes clonazepam U nivers 0.5 mg 4-18 0.5 mg ity of tablet 09:12: tablet [place] [address] TAKE 1 Medical TABLET BY Branch MOUTH [...] mg 4-18 DAILY. ity of tablet 09:12: [address] gabapentin 2022-0 Yes gabapentin U nivers 300 mg 4-18 300 mg ity of capsule 09:12: capsule [address] famotidine 2022-0 Yes famotidine U nivers 20 mg 4-18 20 mg ity of tablet 09:12: tablet [address] clonazePAM 2022-0 Yes clonazepam U nivers [...] mg 4-18 DAILY. ity of tablet 09:12: [address] gabapentin 2022-0 Yes gabapentin U nivers 300 mg 4-18 300 mg ity of capsule 09:12: capsule [address] famotidine 2022-0 Yes famotidine U nivers 20 mg 4-18 20 mg ity of tablet 09:12: tablet [address] clonazePAM 2022-0 Yes clonazepam U nivers [...] mg 4-18 DAILY. ity of tablet 09:12: [address] gabapentin Yes gabapentin U nivers 300 mg 4-18 300 mg ity of capsule 09:12: capsule [address] famotidine Yes famotidine U nivers 20 mg 4-18 20 mg ity of tablet 09:12: tablet [address] clonazePAM Yes clonazepam U nivers 0.5 mg 4-18 0.5 mg ity of tablet 09:12: tablet [place] [address] TAKE 1 Medical TABLET BY Branch MOUTH [...] mg 4-18 DAILY. ity of tablet 09:12: [address] gabapentin Yes gabapentin U nivers 300 mg 4-18 300 mg ity of capsule 09:12: capsule [address] famotidine 0 Yes famotidine U nivers 20 mg 4-18 20 mg ity of tablet 09:12: tablet [address] clonazePAM 2022-0 Yes clonazepam U nivers [...] mg 4-18 DAILY. ity of tablet 09:12: [address] gabapentin Yes gabapentin U nivers 300 mg 4-18 300 mg ity of capsule 09:12: capsule [address] famotidine 0 Yes famotidine U nivers 20 mg 4-18 20 mg ity of tablet 09:12: tablet [address] clonazePAM 2022-0 Yes clonazepam U nivers [...] mg 4-18 DAILY. ity of tablet 09:12: [address] gabapentin Yes gabapentin U nivers 300 mg 4-18 300 mg ity of capsule 09:12: capsule [address] famotidine Yes famotidine U nivers 20 mg 4-18 20 mg ity of tablet 09:12: tablet [address] clonazePAM Yes clonazepam U nivers 0.5 mg 4-18 0.5 mg ity of tablet 09:12: tablet [place] [address] TAKE 1 Medical TABLET BY Branch MOUTH [...] mg 4-18 DAILY. ity of tablet 09:12: [address] gabapentin Yes gabapentin U nivers 300 mg 4-18 300 mg ity of capsule 09:12: capsule [address] famotidine Yes famotidine U nivers 20 mg 4-18 20 mg ity of tablet 09:12: tablet [address] clonazePAM 2022-0 Yes clonazepam U nivers [...] mg 4-18 DAILY. ity of tablet 09:12: [address] gabapentin Yes gabapentin U nivers 300 mg 4-18 300 mg ity of capsule 09:12: capsule [address] famotidine 2022-0 Yes famotidine U nivers 20 mg 4-18 20 mg ity of tablet 09:12: tablet [address] clonazePAM 2022-0 Yes clonazepam U nivers 0.5 mg 4-18 0.5 mg ity of tablet 09:12: tablet [place] [address] TAKE 1 Medical TABLET BY Branch MOUTH [...] 12/19/22 at 0530, Routine iopamidol 2022- No [id number] 99mL 99 mL, U nivers (ISOVUE 12-19 [...] 800 mg ity of tablet 10:43: tablet [address] Branch adalimumab 2022-0 Yes 40mg inject 1 Uni vers (HUMIRA) 40 4-11 Syringe ity o f mg/0.8 mL 10:43: under the [facility] as injection 17 skin. Medical Branch ibuprofen Yes ibuprofen Uni vers 800 mg 4-11 800 mg ity of tablet 10:43: tablet [address] Branch adalimumab 2022-0 Yes 40mg inject 1 Uni vers (HUMIRA) 40 4-11 Syringe ity o f mg/0.8 mL 10:43: under the [place] as injection 17 skin. Medical Branch ibuprofen Yes ibuprofen Uni vers 800 mg 4-11 800 mg ity of tablet 10:43: tablet [address] Branch adalimumab 2022-0 Yes 40mg inject [...] 800 mg ity of tablet 10:43: tablet [address] Branch adalimumab 3-0 Yes 40mg inject 1 Uni vers (HUMIRA) 40 4-11 Syringe ity o f mg/0.8 mL 10:43: under the [place] as injection 17 skin. Medical Branch ibuprofen 3-0 Yes ibuprofen Uni vers 800 mg 4-11 800 mg ity of tablet 10:43: tablet [address] Branch adalimumab 2023-0 Yes 40mg inject 1 Uni vers (HUMIRA) 40 4-11 Syringe ity o f mg/0.8 mL 10:43: under the [place] as injection 17 skin. Medical Branch ibuprofen 2022-0 Yes ibuprofen Uni vers 800 mg 4-11 800 mg ity of tablet 10:43: tablet [address] Branch adalimumab 3-0 Yes 40mg inject 1 Uni vers (HUMIRA) 40 4-11 Syringe ity o f mg/0.8 mL 10:43: under the [place] as injection 17 skin. Medical Branch ibuprofen 2022-0 Yes ibuprofen Uni vers 800 mg 4-11 800 mg ity of tablet 10:43: tablet [address] Branch adalimumab 3-0 Yes 40mg inject 1 Uni vers (HUMIRA) 40 4-11 Syringe ity o f mg/0.8 mL 10:43: under the [place] as injection 17 skin. Medical Branch ibuprofen 2022-0 Yes ibuprofen Uni vers 800 mg 4-11 800 mg ity of tablet 10:43: tablet [address] pregabalin 3-0 Yes 150mg Take 1 Univ ers 150 mg 3-30 capsule by ity of capsule 00:00: mouth in [place] [address] the Medical morning Branch and 1 capsule in the evening. meloxicam 2022-0 Yes Univers 15 mg 3-30 ity of tablet 00:00: [address] Branch HYDROcodone 2022-0 Yes 1{tbl} Take 1 Un travis -acetaminop 3-30 tablet by ity of hen 5-325 00:00: mouth 4 [place] mg tablet 00 (four) Medical times Branch daily. pregabalin 2023-0 Yes 150mg Take 1 Univ ers 150 mg 3-30 capsule by ity of capsule 00:00: mouth in [place] [address] the Medical morning Branch and 1 capsule in the evening. meloxicam 3-0 Yes Univers 15 mg 3-30 ity of tablet 00:00: [address] Branch HYDROcodone 2023-0 Yes 1{tbl} Take 1 Un travis -acetaminop 3-30 tablet by ity of hen 5-325 00:00: mouth 4 [place] mg tablet (presentation medical center) [facility] times Mcalester daily. pregabalin 2023-0 Yes 150mg Take 1 Univ ers 150 mg 3-30 capsule by ity of capsule 00:00: mouth in [place] the Medical morning Branch and 1 capsule in the evening. meloxicam 2023-0 Yes Univers 15 mg 3-30 ity of tablet 00:00: [place] [facility] Branch HYDROcodone 2023-0 Yes 1{tbl} Take 1 Un travis -acetaminop 3-30 tablet by ity of hen 5-325 00:00: mouth 4 [place] mg tablet (presentation medical center) [facility] times Mcalester daily. pregabalin 2023-0 Yes 150mg Take 1 Univ ers 150 mg 3-30 capsule by ity of capsule 00:00: mouth in [place] [address] the [facility] morning Branch and 1 capsule in the evening. meloxicam 2023-0 Yes Univers 15 mg 3-30 ity of tablet 00:00: [place] [facility] Branch HYDROcodone 2023-0 Yes 1{tbl} Take 1 Un travis -acetaminop 3-30 tablet by ity of hen 5-325 00:00: mouth 4 [place] mg tablet (presentation medical center) [facility] times Mcalester daily. pregabalin 2023-0 Yes 150mg Take 1 Univ ers 150 mg 3-30 capsule by ity of capsule 00:00: mouth in [place] the [facility] morning Branch and 1 capsule in the evening. meloxicam 2023-0 Yes Univers 15 mg 3-30 ity of tablet 00:00: [place] [facility] Branch HYDROcodone 2023-0 Yes 1{tbl} Take 1 Un travis -acetaminop 3-30 tablet by ity of hen 5-325 00:00: mouth 4 [place] mg tablet (presentation medical center) [facility] times Mcalester daily. pregabalin 2023-0 Yes 150mg Take 1 Univ ers 150 mg 3-30 capsule by ity of capsule 00:00: mouth in [place] [address] the [facility] morning Branch and 1 capsule in the evening. meloxicam 2023-0 Yes Univers 15 mg 3-30 ity of tablet 00:00: [place] [facility] Branch HYDROcodone 2023-0 Yes 1{tbl} Take 1 Un travis -acetaminop 3-30 tablet by ity of hen 5-325 00:00: mouth 4 [place] mg tablet 00 (presentation medical [facility]) Medical times [facility] daily. pregabalin 2023-0 Yes 150mg Take 1 Univ ers 150 mg 3-30 capsule by ity of capsule 00:00: mouth in [place] the Medical morning Branch and 1 capsule in the evening. meloxicam 2023-0 Yes Univers 15 mg 3-30 ity of tablet 00:00: [place] [facility] Branch HYDROcodone 2023-0 Yes 1{tbl} Take 1 Un travis -acetaminop 3-30 tablet by ity of hen 5-325 00:00: mouth 4 [place] mg tablet 00 (presentation medical [facility]) Medical times [facility]cal[facility] daily. pregabalin 2023-0 Yes 150mg Take 1 Univ ers 150 mg 3-30 capsule by ity of capsule 00:00: mouth in [place] [address] the Medical morning Branch and 1 capsule in the evening. meloxicam 2023-0 Yes Univers 15 mg 3-30 ity of tablet 00:00: [place] [facility] Branch HYDROcodone 2023-0 Yes 1{tbl} Take 1 Un travis -acetaminop 3-30 tablet by ity of hen 5-325 00:00: mouth 4 [place] mg tablet 00 (presentation medical [facility]) Medical times [facility] daily. pregabalin 2023-0 Yes 150mg Take 1 Univ ers 150 mg 3-30 capsule by ity of capsule 00:00: mouth in [place] the Medical morning Branch and 1 capsule in the evening. meloxicam 2023-0 Yes Univers 15 mg 3-30 ity of tablet 00:00: [place] [facility] Branch HYDROcodone 2023-0 Yes 1{tbl} Take 1 Un travis -acetaminop 3-30 tablet by ity of hen 5-325 00:00: mouth 4 [place] mg tablet 00 (presentation medical center) Medical times [facility] daily. pregabalin 2023-0 Yes 150mg Take 1 Univ ers 150 mg 3-30 capsule by ity of capsule 00:00: mouth in [place] the Medical morning Branch and 1 capsule in the evening. meloxicam 2023-0 Yes Univers 15 mg 3-30 ity of tablet 00:00: [place] [facility] Branch HYDROcodone 2023-0 Yes 1{tbl} Take 1 [...] [place] mg tablet 00 (four) Medical times Mcalester daily. pregabalin 2023-0 Yes 150mg Take 1 [...] mg 3-30 ity of tablet 00:00: [place] [facility] Branch HYDROcodone 2023-0 Yes 1{tbl} Take 1 Un travis -acetaminop 3-30 tablet by ity of hen 5-325 00:00: mouth 4 [place] mg tablet (presentation medical [facility]) Medical times [facility] daily. pregabalin 2023-0 Yes 150mg Take 1 Univ ers 150 mg 3-30 capsule by ity of capsule 00:00: mouth in [place] the [facility] morning Branch and 1 capsule in the evening. meloxicam 2023-0 Yes Univers 15 mg 3-30 ity of tablet 00:00: [place] [facility] Branch HYDROcodone 2023-0 Yes 1{tbl} Take 1 Un travis -acetaminop 3-30 tablet by ity of hen 5-325 00:00: mouth 4 [place] mg tablet (presentation medical center) [facility] times Mcalester daily. pregabalin 2023-0 Yes 150mg Take 1 Univ ers 150 mg 3-30 capsule by ity of capsule 00:00: mouth in [place] the [facility] morning Branch and 1 capsule in the evening. meloxicam 2023-0 Yes Univers 15 mg 3-30 ity of tablet 00:00: [place] [facility] Branch HYDROcodone 2023-0 Yes 1{tbl} Take 1 Un travis -acetaminop 3-30 tablet by ity of hen 5-325 00:00: mouth 4 [place] mg tablet (presentation medical center) [facility] times Mcalester daily. pregabalin 2023-0 Yes 150mg Take 1 Univ ers 150 mg 3-30 capsule by ity of capsule 00:00: mouth in [place] the [facility] morning Branch and 1 capsule in the evening. meloxicam 2023-0 Yes Univers 15 mg 3-30 ity of tablet 00:00: [place] [facility] Branch HYDROcodone 2023-0 Yes 1{tbl} Take 1 Un travis -acetaminop 3-30 tablet by ity of hen 5-325 00:00: mouth 4 [place] mg tablet 00 (presentation medical center) Medical times [facility] daily. pregabalin 2023-0 Yes 150mg Take 1 Univ ers 150 mg 3-30 capsule by ity of capsule 00:00: mouth in [place] the Medical morning Branch and 1 capsule in the evening. meloxicam 2023-0 Yes Univers 15 mg 3-30 ity of tablet 00:00: [place] [facility] Branch HYDROcodone 2023-0 Yes 1{tbl} Take 1 Un travis -acetaminop 3-30 tablet by ity of hen 5-325 00:00: mouth 4 [place] mg tablet (presentation medical [facility]) Medical times [facility] daily. pregabalin 2023-0 Yes 150mg Take 1 Univ ers 150 mg 3-30 capsule by ity of capsule 00:00: mouth in [place] the [facility] morning Branch and 1 capsule in the evening. meloxicam 2023-0 Yes Univers 15 mg 3-30 ity of tablet 00:00: [address] Branch HYDROcodone 2023-0 Yes 1{tbl} Take 1 Un travis -acetaminop 3-30 tablet by ity of hen 5-325 00:00: mouth 4 [place] mg tablet (presentation medical center) [facility] times Mcalester daily. pregabalin 2023-0 Yes 150mg Take 1 Univ ers 150 mg 3-30 capsule by ity of capsule 00:00: mouth in [place] [address] the [facility] morning Branch and 1 capsule in the evening. meloxicam 2023-0 Yes Univers 15 mg 3-30 ity of tablet 00:00: [address] Branch HYDROcodone 2023-0 Yes 1{tbl} Take 1 Un travis -acetaminop 3-30 tablet by ity of hen 5-325 00:00: mouth 4 [place] mg tablet (presentation medical center) [facility] times Mcalester daily. pregabalin 2023-0 Yes 150mg Take 1 Univ ers 150 mg 3-30 capsule by ity of capsule 00:00: mouth in [place] the Medical morning Branch and 1 capsule in the evening. meloxicam 2023-0 Yes Univers 15 mg 3-30 ity of tablet 00:00: [place] [facility] Branch HYDROcodone 2023-0 Yes 1{tbl} Take 1 Un travis -acetaminop 3-30 tablet by ity of hen 5-325 00:00: mouth 4 [place] mg tablet 00 (presentation medical center) Medical times [facility] daily. pregabalin 2023-0 Yes 150mg Take 1 Univ ers 150 mg 3-30 capsule by ity of capsule 00:00: mouth in [place] [address] the Medical morning Branch and 1 capsule in the evening. meloxicam 2023-0 Yes Univers 15 mg 3-30 ity of tablet 00:00: [place] [facility] Branch HYDROcodone 2023-0 Yes 1{tbl} Take 1 Un travis -acetaminop 3-30 tablet by ity of hen 5-325 00:00: mouth 4 [place] mg tablet 00 (presentation medical center) Medical times [facility] daily. pregabalin 2023-0 Yes 150mg Take 1 Univ ers 150 mg 3-30 capsule by ity of capsule 00:00: mouth in [place] [address] the Medical morning Branch and 1 capsule in the evening. meloxicam 2023-0 Yes Univers 15 mg 3-30 ity of tablet 00:00: [address] Branch HYDROcodone 2023-0 Yes 1{tbl} Take 1 Un travis -acetaminop 3-30 tablet by ity of hen 5-325 00:00: mouth 4 [place] mg tablet 00 (presentation medical center) [facility] times Mcalester daily. pregabalin 2023-0 Yes 150mg Take 1 Univ ers 150 mg 3-30 capsule by ity of capsule 00:00: mouth in [place] [address] the [facility] morning Branch and 1 capsule in the evening. meloxicam 2023-0 Yes Univers 15 mg 3-30 ity of tablet 00:00: [place] [facility] Branch HYDROcodone 2023-0 Yes 1{tbl} Take 1 Un travis -acetaminop 3-30 tablet by ity of hen 5-325 00:00: mouth 4 [place] mg tablet (presentation medical center) [facility] times Mcalester daily. pregabalin 2023-0 Yes 150mg Take 1 Univ ers 150 mg 3-30 capsule by ity of capsule 00:00: mouth in [place] [address] the [facility] morning Branch and 1 capsule in the evening. meloxicam 2023-0 Yes Univers 15 mg 3-30 ity of tablet 00:00: [address] Branch HYDROcodone 2023-0 Yes 1{tbl} Take 1 Un travis -acetaminop 3-30 tablet by ity of hen 5-325 00:00: mouth 4 [place] mg tablet 00 (presentation medical center) [facility] times Mcalester daily. pregabalin 2023-0 Yes 150mg Take 1 Univ ers 150 mg 3-30 capsule by ity of capsule 00:00: mouth in [place] [address] the [facility] morning Branch and 1 capsule in the evening. meloxicam 2023-0 Yes Univers 15 mg 3-30 ity of tablet 00:00: [place] 00 [facility] Branch HYDROcodone 2023-0 Yes 1{tbl} Take 1 Un travis -acetaminop 3-30 tablet by ity of hen 5-325 00:00: mouth 4 [place] mg tablet 00 (four) Medical times Mcalester daily. pregabalin 2023-0 Yes 150mg Take 1 Univ ers 150 mg 3-30 capsule by ity of capsule 00:00: mouth in [place] 00 the Medical morning Branch and 1 capsule in the evening. meloxicam 2023-0 Yes Univers 15 mg 3-30 ity of tablet 00:00: [place] 00 [facility] Branch HYDROcodone 2023-0 Yes 1{tbl} Take 1 Un travis -acetaminop 3-30 tablet by ity of hen 5-325 00:00: mouth 4 [place] mg tablet 00 (presentation medical center) Medical times [facility] daily. pregabalin 2023-0 Yes 150mg Take 1 Univ ers 150 mg 3-30 capsule by ity of capsule 00:00: mouth in [place] the [facility] morning Branch and 1 capsule in the evening. meloxicam 2023-0 Yes Univers 15 mg 3-30 ity of tablet 00:00: [place] 00 [facility] Branch HYDROcodone 2023-0 Yes 1{tbl} Take 1 Un travis -acetaminop 3-30 tablet by ity of hen 5-325 00:00: mouth 4 [place] mg tablet 00 (presentation medical center) [facility] times Mcalester daily. pregabalin 2023-0 Yes 150mg Take 1 Univ ers 150 mg 3-30 capsule by ity of capsule 00:00: mouth in [place] the Medical morning Branch and 1 capsule in the evening. meloxicam 2023-0 Yes Univers 15 mg 3-30 ity of tablet 00:00: [place] 00 [facility] Branch HYDROcodone 2023-0 Yes 1{tbl} Take 1 Un travis -acetaminop 3-30 tablet by ity of hen 5-325 00:00: mouth 4 [place] mg tablet 00 (four) Medical times [facility]calester daily. pregabalin 2023-0 Yes 150mg Take 1 Univ ers 150 mg 3-30 capsule by ity of capsule 00:00: mouth in [place] [address] the Medical morning Branch and 1 capsule in the evening. meloxicam 2023-0 Yes Univers 15 mg 3-30 ity of tablet 00:00: [place] [facility] Branch HYDROcodone 2023-0 Yes 1{tbl} Take 1 Un travis -acetaminop 3-30 tablet by ity of hen 5-325 00:00: mouth 4 [place] mg tablet (presentation medical center) [facility] times Mcalester daily. pregabalin 2023-0 Yes 150mg Take 1 Univ ers 150 mg 3-30 capsule by ity of capsule 00:00: mouth in [place] the Medical morning Branch and 1 capsule in the evening. meloxicam 2023-0 Yes Univers 15 mg 3-30 ity of tablet 00:00: [place] [facility] Branch HYDROcodone 2023-0 Yes 1{tbl} Take 1 Un travis -acetaminop 3-30 tablet by ity of hen 5-325 00:00: mouth 4 [place] mg tablet (presentation medical center) [facility] daily. pregabalin 2023-0 Yes 150mg Take 1 Univ ers 150 mg 3-30 capsule by ity of capsule 00:00: mouth in [place] the [facility] morning Branch and 1 capsule in the evening. meloxicam 2023-0 Yes Univers 15 mg 3-30 ity of tablet 00:00: [place] [facility] Branch HYDROcodone 2023-0 Yes 1{tbl} Take 1 Un travis -acetaminop 3-30 tablet by ity of hen 5-325 00:00: mouth 4 [place] mg tablet (presentation medical center) [facility] daily. pregabalin 2023-0 Yes 150mg Take 1 Univ ers 150 mg 3-30 capsule by ity of capsule 00:00: mouth in [place] the [facility] morning Branch and 1 capsule in the evening. meloxicam 2023-0 Yes Univers 15 mg 3-30 ity of tablet 00:00: [place] [facility] Branch HYDROcodone 2023-0 Yes 1{tbl} Take 1 Un travis -acetaminop 3-30 tablet by ity of hen 5-325 00:00: mouth 4 [place] mg tablet (presentation medical center) [facility] times Mcalester daily. pregabalin 2023-0 Yes 150mg Take 1 Univ ers 150 mg 3-30 capsule by ity of capsule 00:00: mouth in [place] [address] the Medical morning Branch and 1 capsule in the evening. meloxicam 2023-0 Yes Univers 15 mg 3-30 ity of tablet 00:00: [address] Branch HYDROcodone 2023-0 Yes 1{tbl} Take 1 Un travis -acetaminop 3-30 tablet by ity of hen 5-325 00:00: mouth 4 [place] mg tablet 00 (four) Medical times [facility]calester daily. pregabalin 2023-0 Yes 150mg Take 1 Univ ers 150 mg 3-30 capsule by ity of capsule 00:00: mouth in [place] 00 the Medical morning Branch and 1 capsule in the evening. meloxicam 2023-0 Yes Univers 15 mg 3-30 ity of tablet 00:00: [place] 00 [facility] Branch HYDROcodone 2023-0 Yes 1{tbl} Take 1 Un travis -acetaminop 3-30 tablet by ity of hen 5-325 00:00: mouth 4 [place] mg tablet 00 (four) Medical times [facility]calester daily. pregabalin 2023-0 Yes 150mg Take 1 Univ ers 150 mg 3-30 capsule by ity of capsule 00:00: mouth in [place] [address] the Medical morning Branch and 1 capsule in the evening. meloxicam 2023-0 Yes Univers 15 mg 3-30 ity of tablet 00:00: [address] Branch pregabalin 2023-0 Yes 150mg Take 1 Univ ers 150 mg 3-30 capsule by ity of capsule 00:00: mouth in [place] the Medical morning Branch and 1 capsule in the evening. meloxicam 2023-0 Yes Univers 15 mg 3-30 ity of tablet 00:00: [place] 00 [facility] Branch pregabalin 2023-0 Yes 150mg Take 1 Univ ers 150 mg 3-30 capsule by ity of capsule 00:00: mouth in [place] [address] the Medical morning Branch and 1 capsule in the evening. meloxicam 2023-0 Yes Univers 15 mg 3-30 ity of tablet 00:00: [place] [facility] Branch pregabalin 2023-0 Yes 150mg Take 1 Univ ers 150 mg 3-30 capsule by ity of capsule 00:00: mouth in [place] [address] the Medical morning Branch and 1 capsule in the evening. meloxicam 2023-0 Yes Univers 15 mg 3-30 ity of tablet 00:00: [place] [address] Medical Branch pregabalin 2023-0 Yes 150mg Take 1 Univ ers 150 mg 3-30 capsule by ity of capsule 00:00: mouth in [place] [address] the Medical morning Branch and 1 capsule in the evening. meloxicam 2023-0 Yes Univers 15 mg 3-30 ity of tablet 00:00: [place] 00 Medical Branch pregabalin 2023-0 Yes 150mg Take 1 Univ ers 150 mg 3-30 capsule by ity of capsule 00:00: mouth in [place] [address] the Medical morning Branch and 1 capsule in the evening. meloxicam 2023-0 Yes Univers 15 mg 3-30 ity of tablet 00:00: [place] [facility] Branch pregabalin 2023-0 Yes 150mg Take 1 Univ ers 150 mg 3-30 capsule by ity of capsule 00:00: mouth in [place] [address] the Medical morning Branch and 1 capsule in the evening. meloxicam 2023-0 Yes Univers 15 mg 3-30 ity of tablet 00:00: [place] [facility] Branch pregabalin 2023-0 Yes 150mg Take 1 Univ ers 150 mg 3-30 capsule by ity of capsule 00:00: mouth in [place] [address] the Medical morning Branch and 1 capsule in the evening. meloxicam 2023-0 Yes Univers 15 mg 3-30 ity of tablet 00:00: [place] [facility] Branch pregabalin 2023-0 Yes 150mg Take 1 Univ ers 150 mg 3-30 capsule by ity of capsule 00:00: mouth in [place] [address] the Medical morning Branch and 1 capsule in the evening. meloxicam 2023-0 Yes Univers 15 mg 3-30 ity of tablet 00:00: [place] [facility] Branch pregabalin 2023-0 Yes 150mg Take 1 Univ ers 150 mg 3-30 capsule by ity of capsule 00:00: mouth in [place] [address] the Medical morning Branch and 1 capsule in the evening. meloxicam 2023-0 Yes Univers 15 mg 3-30 ity of tablet 00:00: [place] [facility] Branch pregabalin 2023-0 Yes 150mg Take 1 Univ ers 150 mg 3-30 capsule by ity of capsule 00:00: mouth in [place] [address] the Medical morning Branch and 1 capsule in the evening. meloxicam 2023-0 Yes Univers 15 mg 3-30 ity of tablet 00:00: [place] [address] Medical Branch pregabalin 2023-0 Yes 150mg Take 1 Univ ers 150 mg 3-30 capsule by ity of capsule 00:00: mouth in [place] [address] the Medical morning Branch and 1 capsule in the evening. meloxicam 2023-0 Yes Univers 15 mg 3-30 ity of tablet 00:00: [place] [address] [facility] Branch pregabalin 2023-0 Yes 150mg Take 1 Univ ers 150 mg 3-30 capsule by ity of capsule 00:00: mouth in [place] the Medical morning Branch and 1 capsule in the evening. meloxicam 2023-0 Yes Univers 15 mg 3-30 ity of tablet 00:00: [place] [facility] Branch HYDROcodone 2023-0 Yes 1{tbl} Take 1 Un travis -acetaminop 3-30 tablet by ity of hen 5-325 00:00: mouth 4 [place] mg tablet (presentation medical center) [facility] times Mcalester daily. pregabalin 2023-0 Yes 150mg Take 1 Univ ers 150 mg 3-30 capsule by ity of capsule 00:00: mouth in [place] the [facility] morning Branch and 1 capsule in the evening. meloxicam 2023-0 Yes Univers 15 mg 3-30 ity of tablet 00:00: [address] Branch HYDROcodone 2023-0 Yes 1{tbl} Take 1 Un travis -acetaminop 3-30 tablet by ity of hen 5-325 00:00: mouth 4 [place] mg tablet (presentation medical center) [facility] times Mcalester daily. pregabalin 2023-0 Yes 150mg Take 1 Univ ers 150 mg 3-30 capsule by ity of capsule 00:00: mouth in [place] the [facility] morning Branch and 1 capsule in the evening. meloxicam 2023-0 Yes Univers 15 mg 3-30 ity of tablet 00:00: [place] [facility] Branch HYDROcodone 2023-0 Yes 1{tbl} Take 1 Un travis -acetaminop 3-30 tablet by ity of hen 5-325 00:00: mouth 4 [place] mg tablet (presentation medical center) [facility] times Mcalester daily. pregabalin 2023-0 Yes 150mg Take 1 Univ ers 150 mg 3-30 capsule by ity of capsule 00:00: mouth in [place] the [facility] morning Branch and 1 capsule in the evening. meloxicam 2023-0 Yes Univers 15 mg 3-30 ity of tablet 00:00: [place] [facility] Branch HYDROcodone 2023-0 Yes 1{tbl} Take 1 Un travis -acetaminop 3-30 tablet by ity of hen 5-325 00:00: mouth 4 [place] mg tablet 00 (presentation medical center) Medical times [facility] daily. pregabalin 2023-0 Yes 150mg Take 1 Univ ers 150 mg 3-30 capsule by ity of capsule 00:00: mouth in [place] 00 the Medical morning Branch and 1 capsule in the evening. meloxicam 3-0 Yes Univers 15 mg 3-30 ity of tablet 00:00: [place] 00 Medical Branch HYDROcodone 3-0 Yes 1{tbl} [...] :00 (four) Medical times Branch daily. HYDROcodone 3-0 2023- No 1{tbl} Take 1 U nivers [...] 3-15 TABLET BY ity of tablet 00:00: [facility] EVERY DAY Medical AT BEDTIME Branch [...] 3-15 TABLET BY ity of tablet 00:00: [facility] EVERY DAY Medical AT BEDTIME Branch [...] 3-15 TABLET BY ity of tablet 00:00: [facility] THREE Medical TIMES A Branch DAY NEEDED FOR 30 DAYS amitriptyli 3-0 Yes TAKE 1 Univ ers ne 50 mg 3-15 TABLET BY ity of tablet 00:00: [facility] EVERY DAY Medical AT BEDTIME Branch FOR 30 DAYS cyclobenzap 3-0 Yes TAKE 1 Univ ers rine 10 mg 3-15 TABLET BY ity of tablet 00:00: [facility] THREE Medical TIMES A Branch DAY NEEDED FOR 30 DAYS amitriptyli 3-0 Yes TAKE 1 Univ ers ne 50 mg 3-15 TABLET BY ity of tablet 00:00: [facility] EVERY DAY Medical AT BEDTIME Branch FOR 30 DAYS cyclobenzap 3-0 Yes TAKE 1 Univ ers rine 10 mg 3-15 TABLET BY ity of tablet 00:00: [facility] THREE Medical TIMES A Branch DAY NEEDED FOR 30 DAYS amitriptyli 2023-0 Yes TAKE 1 Univ ers ne 50 mg 3-15 TABLET BY ity of tablet 00:00: [facility] EVERY DAY Medical AT BEDTIME Branch FOR 30 DAYS cyclobenzap 3-0 Yes TAKE 1 Univ ers rine 10 mg 3-15 TABLET BY ity of tablet 00:00: [facility] 00 THREE Medical TIMES A Branch DAY NEEDED FOR 30 DAYS amitriptyli 2023-0 Yes TAKE 1 Univ ers ne 50 mg 3-15 TABLET BY ity of tablet 00:00: [facility] EVERY DAY Medical AT BEDTIME Branch FOR 30 DAYS cyclobenzap 3-0 Yes TAKE 1 Univ ers rine 10 mg 3-15 TABLET BY ity of tablet 00:00: [place] 00 THREE Medical TIMES A Branch DAY NEEDED FOR 30 DAYS amitriptyli 2023-0 Yes TAKE 1 Univ ers ne 50 mg 3-15 TABLET BY ity of tablet 00:00: [facility] EVERY DAY Medical AT BEDTIME Branch FOR 30 DAYS cyclobenzap 2023-0 Yes TAKE 1 Univ ers rine 10 mg 3-15 TABLET BY ity of tablet 00:00: [facility] THREE Medical TIMES A Branch DAY NEEDED FOR 30 DAYS amitriptyli 2023-0 Yes TAKE 1 Univ ers ne 50 mg 3-15 TABLET BY ity of tablet 00:00: [facility] EVERY DAY Medical AT BEDTIME Branch FOR 30 DAYS cyclobenzap 3-0 Yes TAKE 1 Univ ers rine 10 mg 3-15 TABLET BY ity of tablet 00:00: [facility] THREE Medical TIMES A Branch DAY NEEDED FOR 30 DAYS amitriptyli 2023-0 Yes TAKE 1 [facility] ne 50 mg 3-15 TABLET BY ity of tablet 00:00: [facility] EVERY DAY Medical AT BEDTIME Branch FOR 30 DAYS cyclobenzap 3-0 Yes TAKE 1 [facility] ers rine 10 mg 3-15 TABLET BY ity of tablet 00:00: [facility] THREE Medical TIMES A Branch DAY NEEDED FOR 30 DAYS amitriptyli 2023-0 Yes TAKE 1 [facility] ne 50 mg 3-15 TABLET BY ity of tablet 00:00: [facility] EVERY DAY [facility] cyclobenzap 2023-0 Yes TAKE 1 [facility] ers rine 10 mg 3-15 TABLET BY ity of tablet 00:00: [facility] THREE Medical TIMES A Branch DAY NEEDED FOR 30 DAYS amitriptyli 2023-0 Yes TAKE 1 [facility] ne 50 mg 3-15 TABLET BY ity of tablet 00:00: [facility] EVERY DAY Medical AT BEDTIME Branch FOR 30 DAYS cyclobenzap 2023-0 Yes TAKE 1 [facility] ers rine 10 mg 3-15 TABLET BY ity of tablet 00:00: [facility] THREE Medical TIMES A Branch DAY NEEDED FOR 30 DAYS amitriptyli 2023-0 Yes TAKE 1 [facility] ne 50 mg 3-15 TABLET BY ity of tablet 00:00: [facility] EVERY DAY Medical AT BEDTIME Branch FOR 30 DAYS cyclobenzap 2023-0 Yes TAKE 1 [facility] rine 10 mg 3-15 TABLET BY ity of tablet 00:00: MOUTH 00 THREE Medical TIMES A Branch DAY NEEDED FOR 30 DAYS amitriptyli 2023-0 Yes TAKE 1 [facility] ne 50 mg 3-15 TABLET BY ity of tablet 00:00: MOUTH EVERY DAY [facility] DAYS cyclobenzap 2023-0 Yes TAKE 1 [facility] ers rine 10 mg 3-15 TABLET BY ity of tablet 00:00: MOUTH THREE Medical TIMES A Branch DAY NEEDED FOR 30 DAYS amitriptyli 2023-0 Yes TAKE 1 [facility] ne 50 mg 3-15 TABLET BY ity of tablet 00:00: [facility] EVERY DAY Medical AT [facility] FOR 30 DAYS cyclobenzap 3-0 Yes TAKE 1 [facility] ers rine 10 mg 3-15 TABLET BY ity of tablet 00:00: [facility] THREE Medical TIMES A Branch DAY NEEDED FOR 30 DAYS amitriptyli 2023-0 Yes TAKE 1 [facility] ne 50 mg 3-15 TABLET BY ity of tablet 00:00: [facility] EVERY DAY Medical AT [facility] FOR 30 DAYS cyclobenzap 3-0 Yes TAKE 1 [facility] ers rine 10 mg 3-15 TABLET BY ity of tablet 00:00: [facility] THREE Medical TIMES A Branch DAY NEEDED FOR 30 DAYS amitriptyli 2023-0 Yes TAKE 1 [facility] ne 50 mg 3-15 TABLET BY ity of tablet 00:00: [facility] EVERY DAY Medical AT [facility] FOR 30 DAYS cyclobenzap 3-0 Yes TAKE 1 [facility] rine 10 mg 3-15 TABLET BY ity of tablet 00:00: [facility] THREE Medical TIMES A Branch DAY NEEDED FOR 30 DAYS amitriptyli 2023-0 Yes TAKE 1 [facility] ne 50 mg 3-15 TABLET BY ity of tablet 00:00: [facility] EVERY DAY Medical AT BEDTIME [place] FOR 30 DAYS cyclobenzap 2023-0 Yes TAKE 1 [facility] ers rine 10 mg 3-15 TABLET BY ity of tablet 00:00: [facility] THREE Medical TIMES A Branch DAY NEEDED FOR 30 DAYS amitriptyli 2023-0 Yes TAKE 1 [facility] ne 50 mg 3-15 TABLET BY ity of tablet 00:00: [facility] EVERY DAY Medical AT [facility] FOR 30 DAYS cyclobenzap 2023-0 Yes TAKE 1 [facility] ers rine 10 mg 3-15 TABLET BY ity of tablet 00:00: [facility] THREE Medical TIMES A Branch DAY NEEDED FOR 30 DAYS amitriptyli 2023-0 Yes TAKE 1 [facility] ne 50 mg 3-15 TABLET BY ity of tablet 00:00: [facility] EVERY DAY Medical AT BEDTIME Branch FOR 30 DAYS cyclobenzap 3-0 Yes TAKE 1 [facility] rine 10 mg 3-15 TABLET BY ity of tablet 00:00: [facility] THREE Medical TIMES A Branch DAY NEEDED FOR 30 DAYS amitriptyli 3-0 Yes TAKE 1 [facility] ne 50 mg 3-15 TABLET BY ity of tablet 00:00: [facility] EVERY DAY Medical AT [facility] FOR 30 DAYS cyclobenzap 3-0 Yes TAKE 1 [facility] ers rine 10 mg 3-15 TABLET BY ity of tablet 00:00: [facility] THREE Medical TIMES A Branch DAY NEEDED FOR 30 DAYS amitriptyli 2023-0 Yes TAKE 1 [facility] ne 50 mg 3-15 TABLET BY ity of tablet 00:00: [facility] EVERY DAY Medical AT [facility] FOR 30 DAYS cyclobenzap 2022-0 Yes TAKE 1 [facility] rine 10 mg 3-15 TABLET BY ity of tablet 00:00: [facility] THREE Medical TIMES A Branch DAY NEEDED FOR 30 DAYS amitriptyli 2023-0 Yes TAKE 1 [facility] ne 50 mg 3-15 TABLET BY ity of tablet 00:00: [facility] EVERY DAY Medical AT [facility] FOR 30 DAYS cyclobenzap 3-0 Yes TAKE 1 [facility] rine 10 mg 3-15 TABLET BY ity of tablet 00:00: [facility] THREE Medical TIMES A Branch DAY NEEDED FOR 30 DAYS amitriptyli 2023-0 Yes TAKE 1 [facility] ne 50 mg 3-15 TABLET BY ity of tablet 00:00: [facility] EVERY DAY Medical AT BEDTIME Branch FOR 30 DAYS cyclobenzap 2023-0 Yes TAKE 1 [facility] ers rine 10 mg 3-15 TABLET BY ity of tablet 00:00: [facility] THREE Medical TIMES A Branch DAY [...] 3-15 TABLET BY ity of tablet 00:00: [facility] EVERY DAY Medical AT BEDTIME Branch FOR 30 DAYS cyclobenzap 2023-0 Yes TAKE 1 [facility] rine 10 mg 3-15 TABLET BY ity of tablet 00:00: MOUTH THREE Medical TIMES A Branch DAY NEEDED FOR 30 DAYS amitriptyli 3-0 Yes TAKE 1 [facility] ne 50 mg 3-15 TABLET BY ity of tablet 00:00: [facility] EVERY DAY Medical AT BEDTIME Branch FOR 30 DAYS cyclobenzap 3-0 Yes TAKE 1 [facility] rine 10 mg 3-15 TABLET BY ity of tablet 00:00: [facility] THREE Medical TIMES A Branch DAY NEEDED FOR 30 DAYS amitriptyli 2023-0 Yes TAKE 1 [facility] ne 50 mg 3-15 TABLET BY ity of tablet 00:00: [facility] EVERY DAY Medical AT BEDTIME Branch FOR 30 DAYS cyclobenzap 3-0 Yes TAKE 1 [facility] rine 10 mg 3-15 TABLET BY ity of tablet 00:00: MOUTH THREE Medical TIMES A Branch DAY NEEDED FOR 30 DAYS amitriptyli 2023-0 Yes TAKE 1 [facility] 50 mg 3-15 TABLET BY ity of tablet 00:00: [facility] EVERY DAY Medical AT BEDTIME Branch FOR 30 DAYS cyclobenzap 2023-0 Yes TAKE 1 [facility] rine 10 mg 3-15 TABLET BY ity of tablet 00:00: [facility] THREE Medical TIMES A Branch DAY [...] 00:00: MOUTH EVERY DAY [facility] Branch FOR 30 DAYS cyclobenzap 2022-0 Yes TAKE 1 [facility] ers rine 10 mg 3-15 TABLET BY ity of tablet 00:00: [facility] THREE Medical TIMES A Branch DAY NEEDED FOR 30 DAYS amitriptyli 3-0 Yes TAKE 1 [facility] ne 50 mg 3-15 TABLET BY ity of tablet 00:00: [facility] EVERY DAY Medical AT [facility] FOR 30 DAYS cyclobenzap 2022-0 Yes TAKE 1 [facility] rine 10 mg 3-15 TABLET BY ity of tablet 00:00: MOUTH THREE Medical TIMES A Branch DAY NEEDED FOR 30 DAYS amitriptyli 3-0 Yes TAKE 1 [facility] ne 50 mg 3-15 TABLET BY ity of tablet 00:00: [facility] EVERY DAY Medical AT [facility] FOR 30 DAYS cyclobenzap 3-0 Yes TAKE 1 [facility] rine 10 mg 3-15 TABLET BY ity of tablet 00:00: [facility] THREE Medical TIMES A Branch DAY NEEDED FOR 30 DAYS amitriptyli 2023-0 Yes TAKE 1 [facility] ne 50 mg 3-15 TABLET BY ity of tablet 00:00: MOUTH EVERY DAY Medical AT BEDTIME Branch FOR 30 DAYS cyclobenzap 3-0 Yes TAKE 1 [facility] rine 10 mg 3-15 TABLET BY ity of tablet 00:00: [facility] THREE Medical TIMES A Branch DAY NEEDED FOR 30 DAYS amitriptyli 2023-0 Yes TAKE 1 [facility] 50 mg 3-15 TABLET BY ity of tablet 00:00: [facility] EVERY DAY Medical AT BEDTIME Branch FOR 30 DAYS cyclobenzap 2023-0 Yes TAKE 1 [facility] rine 10 mg 3-15 TABLET BY ity of tablet 00:00: MOUTH THREE Medical TIMES A Branch DAY NEEDED FOR 30 DAYS amitriptyli 2023-0 Yes TAKE 1 [facility] ne 50 mg 3-15 TABLET BY ity of tablet 00:00: [facility] EVERY DAY Medical AT [facility] FOR 30 DAYS cyclobenzap 3-0 Yes TAKE 1 [facility] rine 10 mg 3-15 TABLET BY ity of tablet 00:00: [facility] THREE Medical TIMES A Branch DAY NEEDED FOR 30 DAYS amitriptyli 2023-0 Yes TAKE 1 [facility] ne 50 mg 3-15 TABLET BY ity of tablet 00:00: [facility] EVERY DAY Medical AT [facility] FOR 30 DAYS cyclobenzap 2022-0 Yes TAKE 1 [facility] rine 10 mg 3-15 TABLET BY ity of tablet 00:00: [facility] THREE Medical TIMES A Branch DAY NEEDED FOR 30 DAYS amitriptyli 3-0 Yes TAKE 1 [facility] ne 50 mg 3-15 TABLET BY ity of tablet 00:00: [facility] EVERY DAY Medical AT [facility] FOR 30 DAYS cyclobenzap 3-0 Yes TAKE 1 [facility] rine 10 mg 3-15 TABLET BY ity of tablet 00:00: [facility] THREE Medical TIMES A Branch DAY NEEDED FOR 30 DAYS amitriptyli 3-0 Yes TAKE 1 [facility] ne 50 mg 3-15 TABLET BY ity of tablet 00:00: [facility] EVERY DAY Medical AT [facility] FOR 30 DAYS cyclobenzap 3-0 Yes TAKE 1 [facility] rine 10 mg 3-15 TABLET BY ity of tablet 00:00: [facility] THREE Medical TIMES A Branch DAY NEEDED FOR 30 DAYS amitriptyli 3-0 Yes TAKE 1 [facility] ne 50 mg 3-15 TABLET BY ity of tablet 00:00: [facility] EVERY DAY Medical AT BEDTIME [place] FOR 30 DAYS cyclobenzap 3-0 Yes TAKE 1 [facility] rine 10 mg 3-15 TABLET BY ity of tablet 00:00: [facility] THREE Medical TIMES A Branch DAY NEEDED FOR 30 DAYS amitriptyli 2023-0 Yes TAKE 1 [facility] ne 50 mg 3-15 TABLET BY ity of tablet 00:00: [facility] EVERY DAY Medical AT BEDTIME Branch [...] 3-15 TABLET BY ity of tablet 00:00: [facility] EVERY DAY Medical AT BEDTIME Branch FOR 30 DAYS cyclobenzap 2022-0 Yes TAKE 1 [facility] rine 10 mg 3-15 TABLET BY ity of tablet 00:00: [facility] THREE Medical TIMES A Branch DAY NEEDED FOR 30 DAYS amitriptyli 3-0 Yes TAKE 1 [facility] ne 50 mg 3-15 TABLET BY ity of tablet 00:00: [facility] EVERY DAY Medical AT BEDTIME Branch FOR 30 DAYS cyclobenzap 3-0 Yes TAKE 1 [facility] rine 10 mg 3-15 TABLET BY ity of tablet 00:00: [facility] THREE Medical TIMES A Branch DAY NEEDED FOR 30 DAYS amitriptyli 3-0 Yes TAKE 1 [facility] ne 50 mg 3-15 TABLET BY ity of tablet 00:00: [facility] EVERY DAY Medical AT [facility] FOR 30 DAYS cyclobenzap 3-0 Yes TAKE 1 [facility] rine 10 mg 3-15 TABLET BY ity of tablet 00:00: [facility] THREE Medical TIMES A Branch DAY NEEDED FOR 30 DAYS amitriptyli 2023-0 Yes TAKE 1 [facility] ne 50 mg 3-15 TABLET BY ity of tablet 00:00: [facility] EVERY DAY Medical AT BEDTIME Branch FOR 30 DAYS cyclobenzap 2023-0 Yes TAKE 1 [facility] rine 10 mg 3-15 TABLET BY ity of tablet 00:00: [facility] THREE Medical TIMES A Branch DAY NEEDED FOR 30 DAYS amitriptyli 2023-0 Yes TAKE 1 [facility] ne 50 mg 3-15 TABLET BY ity of tablet 00:00: [facility] EVERY DAY Medical AT BEDTIME Branch FOR 30 DAYS NaCl 0.9% 2022-0 2022- No 500mL at 999 Univ ers [...] On Branch Wed11/03/22 at 0900, STAT LORazepam 3-0 Yes [id number] 1mg Take 1 U nivers (ATIVAN) 1 2-28 tablet by ity of mg tablet 00:00: mouth 2 00 (two) Medical times Branch daily as needed for Anxiety or Agitation. hydrOXYzine 2023-0 Yes [id number] 25mg Take 1 [facility] (VISTARIL) 2-28 capsule by ity of 25 mg 00:00: mouth 3 [place] capsule 00 (three) Medical times Branch daily as needed for Anxiety. LORazepam 3-0 Yes [id number] 1mg Take 1 [facility] nivers (ATIVAN) 1 2-28 tablet by ity of mg tablet 00:00: mouth 2 [place] 00 (two) Medical times Branch daily as needed for Anxiety or Agitation. hydrOXYzine 2023-0 Yes [id number] 25mg Take 1 Univers (VISTARIL) 2-28 capsule by ity of 25 mg 00:00: mouth 3 [place] capsule 00 (three) Medical times Branch daily as needed for Anxiety. LORazepam 2023-0 Yes [id number] 1mg Take 1 [facility] nivers (ATIVAN) 1 2-28 tablet by ity of mg tablet 00:00: mouth 2 [place] 00 (two) Medical times Branch daily as needed for Anxiety or Agitation. hydrOXYzine 2023-0 Yes [id number] 25mg Take 1 Univers (VISTARIL) 2-28 capsule by ity of 25 mg 00:00: mouth 3 [place] capsule 00 (three) Medical times Branch daily as needed for Anxiety. LORazepam 2023-0 Yes [id number] 1mg Take 1 [facility] nivers (ATIVAN) 1 2-28 tablet by ity of mg tablet 00:00: mouth 2 [place] 00 (two) Medical times Branch daily as needed for Anxiety or Agitation. hydrOXYzine 2023-0 Yes [id number] 25mg Take 1 Univers (VISTARIL) 2-28 capsule by ity of 25 mg 00:00: mouth 3 [place] capsule 00 (three) Medical times Branch daily as needed for Anxiety. LORazepam 2023-0 Yes [id number] 1mg Take 1 [facility] nivers (ATIVAN) 1 2-28 tablet by ity of mg tablet 00:00: mouth 2 [place] 00 (two) Medical times Branch daily as needed for Anxiety or Agitation. hydrOXYzine 2023-0 Yes [id number] 25mg Take 1 Univers (VISTARIL) 2-28 capsule by ity of 25 mg 00:00: mouth 3 [place] capsule 00 (three) Medical times Branch daily as needed for Anxiety. LORazepam 2023-0 Yes [id number] 1mg Take 1 [facility] nivers (ATIVAN) 1 2-28 tablet by ity of mg tablet 00:00: mouth 2 [place] 00 (two) Medical times Branch daily as needed for Anxiety or Agitation. hydrOXYzine 2023-0 Yes [id number] 25mg Take 1 [facility] (VISTARIL) 2-28 capsule by ity of 25 mg 00:00: mouth 3 [place] capsule 00 (three) Medical times Branch daily as needed for Anxiety. LORazepam 2023-0 Yes [id number] 1mg Take 1 [facility]ivers (ATIVAN) 1 2-28 tablet by ity of mg tablet 00:00: mouth 2 [place] 00 (two) Medical times Branch daily as needed for Anxiety or Agitation. hydrOXYzine 2023-0 Yes [id number] 25mg Take 1 Univers (VISTARIL) 2-28 capsule by ity of 25 mg 00:00: mouth 3 [place] capsule 00 (three) Medical times Branch daily as needed for Anxiety. LORazepam 2023-0 Yes [id number] 1mg Take 1 [facility]ivers (ATIVAN) 1 2-28 tablet by ity of mg tablet 00:00: mouth 2 [place] 00 (two) Medical times Branch daily as needed for Anxiety or Agitation. hydrOXYzine 2023-0 Yes [id number] 25mg Take 1 Univers (VISTARIL) 2-28 capsule by ity of 25 mg 00:00: mouth 3 [place] capsule 00 (three) Medical times Branch daily as needed for Anxiety. LORazepam 2023-0 Yes [id number] 1mg Take 1 [facility]ivers (ATIVAN) 1 2-28 tablet by ity of mg tablet 00:00: mouth 2 [place] 00 (two) Medical times Branch daily as needed for Anxiety or Agitation. hydrOXYzine 2023-0 Yes [id number] 25mg Take 1 [facility] (VISTARIL) 2-28 capsule by ity of 25 mg 00:00: mouth 3 [place] capsule 00 (three) Medical times Branch daily as needed for Anxiety. LORazepam 2023-0 Yes [id number] 1mg Take 1 [facility] (ATIVAN) 1 2-28 tablet by ity of mg tablet 00:00: mouth 2 [place] 00 (two) Medical times Branch daily as needed for Anxiety or Agitation. hydrOXYzine 2023-0 Yes [id number] 25mg Take 1 Univers (VISTARIL) 2-28 capsule by ity of 25 mg 00:00: mouth 3 [place] capsule 00 (three) Medical times Branch daily as needed for Anxiety. LORazepam 2023-0 Yes [id number] 1mg Take 1 [facility]ivers (ATIVAN) 1 2-28 tablet by ity of mg tablet 00:00: mouth 2 [place] 00 (two) Medical times Branch daily as needed for Anxiety or Agitation. hydrOXYzine 2023-0 Yes [id number] 25mg Take 1 Univers (VISTARIL) 2-28 capsule by ity of 25 mg 00:00: mouth 3 [place] capsule 00 (three) Medical times Branch daily as needed for Anxiety. LORazepam 2023-0 Yes [id number] 1mg Take 1 [facility] nivers (ATIVAN) 1 2-28 tablet by ity of mg tablet 00:00: mouth 2 [place] 00 (two) Medical times Branch daily as needed for Anxiety or Agitation. hydrOXYzine 2023-0 Yes [id number] 25mg Take 1 [facility] (VISTARIL) 2-28 capsule by ity of 25 mg 00:00: mouth 3 [place] capsule 00 (three) Medical times Branch daily as needed for Anxiety. LORazepam 2023-0 Yes [id number] 1mg Take 1 [facility]ivers (ATIVAN) 1 2-28 tablet by ity of mg tablet 00:00: mouth 2 [place] 00 (two) Medical times Branch daily as needed for Anxiety or Agitation. hydrOXYzine 2023-0 Yes [id number] 25mg Take 1 [facility] (VISTARIL) 2-28 capsule by ity of 25 mg 00:00: mouth 3 [place] capsule 00 (three) Medical times Branch daily as needed for Anxiety. LORazepam 2023-0 Yes [id number] 1mg Take 1 [facility] (ATIVAN) 1 2-28 tablet by ity of mg tablet 00:00: mouth 2 [place] 00 (two) Medical times Branch daily as needed for Anxiety or Agitation. hydrOXYzine 2023-0 Yes [id number] 25mg Take 1 [facility] (VISTARIL) 2-28 capsule by ity of 25 mg 00:00: mouth 3 [place] capsule 00 (three) Medical times Branch daily as needed for Anxiety. LORazepam 2023-0 Yes [id number] 1mg Take 1 [facility] (ATIVAN) 1 2-28 tablet by ity of mg tablet 00:00: mouth 2 [place] 00 (two) Medical times Branch daily as needed for Anxiety or Agitation. hydrOXYzine 2023-0 Yes [id number] 25mg Take 1 [facility] (VISTARIL) 2-28 capsule by ity of 25 mg 00:00: mouth 3 [place] capsule 00 (three) Medical times Branch daily as needed for Anxiety. LORazepam 2023-0 Yes [id number] 1mg Take 1 [facility] (ATIVAN) 1 2-28 tablet by ity of mg tablet 00:00: mouth 2 [place] 00 (two) Medical times Branch daily as needed for Anxiety or Agitation. hydrOXYzine 2023-0 Yes [id number] 25mg Take 1 [facility] (VISTARIL) 2-28 capsule by ity of 25 mg 00:00: mouth 3 [place] capsule 00 (three) Medical times Branch daily as needed for Anxiety. LORazepam 2023-0 Yes [id number] 1mg Take 1 [facility] (ATIVAN) 1 2-28 tablet by ity of mg tablet 00:00: mouth 2 00 (two) Medical times Branch daily as needed for Anxiety or Agitation. hydrOXYzine 2023-0 Yes [id number] 25mg Take 1 [facility] (VISTARIL) 2-28 capsule by ity of 25 mg 00:00: mouth 3 [place] capsule 00 (three) Medical times Branch daily as needed for Anxiety. LORazepam 2023-0 Yes [id number] 1mg Take 1 [facility] (ATIVAN) 1 2-28 tablet by ity of mg tablet 00:00: mouth 2 [place] 00 (two) Medical times Branch daily as needed for Anxiety or Agitation. hydrOXYzine 2023-0 Yes [id number] 25mg Take 1 [facility] (VISTARIL) 2-28 capsule by ity of 25 mg 00:00: mouth 3 [place] capsule 00 (three) Medical times Branch daily as needed for Anxiety. LORazepam 2023-0 Yes [id number] 1mg Take 1 [facility] (ATIVAN) 1 2-28 tablet by ity of mg tablet 00:00: mouth 2 (two) Medical times Branch daily as needed for Anxiety or Agitation. hydrOXYzine 2023-0 Yes [id number] 25mg Take 1 [facility] (VISTARIL) 2-28 capsule by ity of 25 mg 00:00: mouth 3 [place] capsule 00 (three) Medical times Branch daily as needed for Anxiety. LORazepam 2023-0 Yes [id number] 1mg Take 1 [facility] (ATIVAN) 1 2-28 tablet by ity of mg tablet 00:00: mouth 2 (two) Medical times Branch daily as needed for Anxiety or Agitation. hydrOXYzine 2023-0 Yes [id number] 25mg Take 1 [facility] (VISTARIL) 2-28 capsule by ity of 25 mg 00:00: mouth 3 [place] capsule 00 (three) Medical times Branch daily as needed for Anxiety. LORazepam 2023-0 Yes [id number] 1mg Take 1 [facility] (ATIVAN) 1 2-28 tablet by ity of mg tablet 00:00: mouth 2 [place] 00 (two) Medical times Branch daily as needed for Anxiety or Agitation. hydrOXYzine 2023-0 Yes [id number] 25mg Take 1 [facility] (VISTARIL) 2-28 capsule by ity of 25 mg 00:00: mouth 3 [place] capsule 00 (three) Medical times Branch daily as needed for Anxiety. LORazepam 2023-0 Yes [id number] 1mg Take 1 [facility]ivers (ATIVAN) 1 2-28 tablet by ity of mg tablet 00:00: mouth 2 [place] (two) Medical times Branch daily as needed for Anxiety or Agitation. hydrOXYzine 2023-0 Yes [id number] 25mg Take 1 [facility] (VISTARIL) 2-28 capsule by ity of 25 mg 00:00: mouth 3 [place] capsule 00 (three) Medical times Branch daily as needed for Anxiety. LORazepam 2023-0 Yes [id number] 1mg Take 1 [facility] (ATIVAN) 1 2-28 tablet by ity of mg tablet 00:00: mouth 2 [place] (two) Medical times Branch daily as needed for Anxiety or Agitation. hydrOXYzine 2023-0 Yes [id number] 25mg Take 1 [facility] (VISTARIL) 2-28 capsule by ity of 25 mg 00:00: mouth 3 [place] capsule 00 (three) Medical times Branch daily as needed for Anxiety. LORazepam 2023-0 Yes [id number] 1mg Take 1 [facility] (ATIVAN) 1 2-28 tablet by ity of mg tablet 00:00: mouth 2 (two) Medical times Branch daily as needed for Anxiety or Agitation. hydrOXYzine 2023-0 Yes [id number] 25mg Take 1 [facility] (VISTARIL) 2-28 capsule by ity of 25 mg 00:00: mouth 3 [place] capsule 00 (three) Medical times Branch daily as needed for Anxiety. LORazepam 2023-0 Yes [id number] 1mg Take 1 [facility] nivers (ATIVAN) 1 2-28 tablet by ity of mg tablet 00:00: mouth 2 (two) Medical times Branch daily as needed for Anxiety or Agitation. LORazepam 2023-0 Yes [id number] 1mg Take 1 [facility]ivers (ATIVAN) 1 2-28 tablet by ity of mg tablet 00:00: mouth 2 [place] 00 (two) Medical times Branch daily as needed for Anxiety or Agitation. LORazepam 2023-0 Yes [id number] 1mg Take 1 [facility] (ATIVAN) 1 2-28 tablet by ity of mg tablet 00:00: mouth 2 (two) Medical times Branch daily as needed for Anxiety or Agitation. LORazepam 2023-0 Yes [id number] 1mg Take 1 [facility] (ATIVAN) 1 2-28 tablet by ity of mg tablet 00:00: mouth (two) Medical times Branch daily as needed for Anxiety or Agitation. LORazepam 2023-0 Yes [id number] 1mg Take 1 [facility] (ATIVAN) 1 2-28 tablet by ity of mg tablet 00:00: mouth (two) Medical times Branch daily as needed for Anxiety or Agitation. LORazepam 2023-0 Yes [id number] 1mg Take 1 [facility] (ATIVAN) 1 2-28 tablet by ity of mg tablet 00:00: mouth (two) Medical times Branch daily as needed for Anxiety or Agitation. LORazepam 2023-0 Yes [id number] 1mg Take 1 [facility] (ATIVAN) 1 2-28 tablet by ity of mg tablet 00:00: mouth (two) Medical times Branch daily as needed for Anxiety or Agitation. LORazepam 2023-0 Yes [id number] 1mg Take 1 [facility] (ATIVAN) 1 2-28 tablet by ity of mg tablet 00:00: mouth (two) Medical times Branch daily as needed for Anxiety or Agitation. LORazepam 2023-0 Yes [id number] 1mg Take 1 [facility] (ATIVAN) 1 2-28 tablet by ity of mg tablet 00:00: mouth (two) Medical times Branch daily as needed for Anxiety or Agitation. LORazepam 2023-0 Yes [id number] 1mg Take 1 [facility] (ATIVAN) 1 2-28 tablet by ity of mg tablet 00:00: mouth (two) Medical times Branch daily as needed for Anxiety or Agitation. LORazepam 2023-0 Yes [id number] 1mg Take 1 [facility] (ATIVAN) 1 2-28 tablet by ity of mg tablet 00:00: mouth (two) Medical times Branch daily as needed for Anxiety or Agitation. LORazepam 2023-0 Yes [id number] 1mg Take 1 [facility] (ATIVAN) 1 2-28 tablet by ity of mg tablet 00:00: mouth (two) Medical times Branch daily as needed for Anxiety or Agitation. LORazepam 2023-0 Yes [id number] 1mg Take 1 [facility] (ATIVAN) 1 2-28 tablet by ity of mg tablet 00:00: mouth 2 (two) Medical times Branch daily as needed for Anxiety or Agitation. LORazepam 2023-0 Yes [id number] 1mg Take 1 [facility] (ATIVAN) 1 2-28 tablet by ity of mg tablet 00:00: mouth (two) Medical times Branch daily as needed for Anxiety or Agitation. LORazepam 2023-0 Yes [id number] 1mg Take 1 [facility] (ATIVAN) 1 2-28 tablet by ity of mg tablet 00:00: mouth (two) Medical times Branch daily as needed for Anxiety or Agitation. LORazepam 2023-0 Yes [id number] 1mg Take 1 [facility] (ATIVAN) 1 2-28 tablet by ity of mg tablet 00:00: mouth (two) Medical times Branch daily as needed for Anxiety or Agitation. LORazepam 2023-0 Yes [id number] 1mg Take 1 [facility] (ATIVAN) 1 2-28 tablet by ity of mg tablet 00:00: mouth (two) Medical times Branch daily as needed for Anxiety or Agitation. LORazepam 2023-0 Yes [id number] 1mg Take 1 [facility] (ATIVAN) 1 2-28 tablet by ity of mg tablet 00:00: mouth (two) Medical times Branch daily as needed for Anxiety or Agitation. LORazepam 2023-0 Yes [id number] 1mg Take 1 [facility] (ATIVAN) 1 2-28 tablet by ity of mg tablet 00:00: mouth (two) Medical times Branch daily as needed for Anxiety or Agitation. LORazepam 2023-0 Yes [id number] 1mg Take 1 [facility] (ATIVAN) 1 2-28 tablet by ity of mg tablet 00:00: mouth (two) Medical times Branch daily as needed for Anxiety or Agitation. LORazepam 2023-0 Yes [id number] 1mg Take 1 [facility] (ATIVAN) 1 2-28 tablet by ity of mg tablet 00:00: mouth (two) Medical times Branch daily as needed for Anxiety or Agitation. LORazepam 2023-0 Yes [id number] 1mg Take 1 [facility] (ATIVAN) 1 2-28 tablet by ity of mg tablet 00:00: mouth 2 [place] 00 (two) Medical times Branch daily as needed for Anxiety or Agitation. LORazepam 2023-0 Yes [id number] 1mg Take 1 [facility] (ATIVAN) 1 2-28 tablet by ity of mg tablet 00:00: mouth 2 00 (two) Medical times Branch daily as needed for Anxiety or Agitation. LORazepam 2023-0 Yes [id number] 1mg Take 1 [facility] (ATIVAN) 1 2-28 tablet by ity of mg tablet 00:00: mouth 2 00 (two) Medical times Branch daily as needed for Anxiety or Agitation. LORazepam 2023-0 Yes [id number] 1mg Take 1 [facility] (ATIVAN) 1 2-28 tablet by ity of mg tablet 00:00: mouth 2 (two) Medical times Branch daily as needed for Anxiety or Agitation. hydrOXYzine 2023-0 Yes [id number] 25mg Take 1 [facility] (VISTARIL) 2-28 capsule by ity of 25 mg 00:00: mouth 3 [place] capsule 00 (three) Medical times Branch daily as needed for Anxiety. LORazepam 2023-0 Yes [id number] 1mg Take 1 [facility] (ATIVAN) 1 2-28 tablet by ity of mg tablet 00:00: mouth 2 00 (two) Medical times Branch daily as needed for Anxiety or Agitation. hydrOXYzine 2023-0 Yes [id number] 25mg Take 1 [facility] (VISTARIL) 2-28 capsule by ity of 25 mg 00:00: mouth 3 [place] capsule 00 (three) Medical times Branch daily as needed for Anxiety. LORazepam 2023-0 Yes [id number] 1mg Take 1 [facility] (ATIVAN) 1 2-28 tablet by ity of mg tablet 00:00: mouth 2 [place] 00 (two) Medical times Branch daily as needed for Anxiety or Agitation. hydrOXYzine 2023-0 Yes [id number] 25mg Take 1 [facility] (VISTARIL) 2-28 capsule by ity of 25 mg 00:00: mouth 3 [place] capsule 00 (three) Medical times Branch daily as needed for Anxiety. LORazepam 2023-0 Yes [id number] 1mg Take 1 [facility] (ATIVAN) 1 2-28 tablet by ity of mg tablet 00:00: mouth 2 [place] 00 (two) Medical times Branch daily as needed for Anxiety or Agitation. hydrOXYzine 2023-0 Yes [id number] 25mg Take 1 [facility] (VISTARIL) 2-28 capsule by ity of 25 mg 00:00: mouth 3 [place] capsule 00 (three) Medical times Branch daily as needed for Anxiety. LORazepam 2023-0 Yes [id number] 1mg Take 1 [facility] (ATIVAN) 1 2-28 tablet by ity of mg tablet 00:00: mouth 2 [place] 00 (two) Medical times Branch daily as needed for Anxiety or Agitation. hydrOXYzine 2023-0 Yes [id number] 25mg Take 1 [facility] (VISTARIL) 2-28 capsule by ity of 25 mg 00:00: mouth 3 [place] capsule 00 (three) Medical times Branch daily as needed for Anxiety. LORazepam 2023-0 Yes [id number] 1mg Take 1 [facility] (ATIVAN) 1 2-28 tablet by ity of mg tablet 00:00: mouth 2 [place] 00 (two) Medical times Branch daily as needed for Anxiety or Agitation. hydrOXYzine 2023-0 Yes [id number] 25mg Take 1 [facility] (VISTARIL) 2-28 capsule by ity of 25 mg 00:00: mouth 3 [place] capsule 00 (three) Medical times Branch daily as needed for Anxiety. LORazepam 2023-0 Yes [id number] 1mg Take 1 [facility] (ATIVAN) 1 2-28 tablet by ity of mg tablet 00:00: mouth 2 [place] 00 (two) Medical times Branch daily as needed for Anxiety or Agitation. hydrOXYzine 2023-0 Yes [id number] 25mg Take 1 [facility] (VISTARIL) 2-28 capsule by ity of 25 mg 00:00: mouth 3 [place] capsule 00 (three) Medical times Branch daily as needed for Anxiety. LORazepam 2023-0 Yes [id number] 1mg Take 1 [facility] (ATIVAN) 1 2-28 tablet by ity of mg tablet 00:00: mouth 2 [place] 00 (two) Medical times Branch daily as needed for Anxiety or Agitation. hydrOXYzine 2023-0 Yes [id number] 25mg Take 1 [facility] (VISTARIL) 2- capsule by ity of 25 mg 00:00: mouth 3 [place] capsule 00 (three) Medical times Branch daily as needed for Anxiety. hydrOXYzine 2022-2022- No [id number] 25mg Take 1 [facility] (VISTARIL) -03 03- capsule by it y of 25 mg 00:00: 00:00 mouth 3 [place] capsule 00 :00 (three) Medical times Branch daily as needed for Anxiety. hydrOXYzine 2022-2022- No [id number] 25mg Take 1 [facility] (VISTARIL) 11-03- capsule by it y of 25 mg 00:00: 00:00 mouth 3 [place] capsule 00 :00 (three) Medical times Branch daily as needed for Anxiety. iopamidol 2022- No [id number] 75mL 75 mL, Univers (ISOVUE 10-13 Intravenou [...] BY ity of tablet 00:00: MOUTH IN [place] [address] THE [facility] MORNING Branch AND IN THE EVENING FOR 5 DAYS famotidine 0 Yes TAKE 1 Unive rs 20 mg 1-25 TABLET BY ity of tablet 00:00: MOUTH IN [place] [address] THE [facility] MORNING Branch AND IN THE EVENING FOR 5 DAYS famotidine 2022-0 Yes TAKE 1 Unive rs 20 mg 1-25 TABLET BY ity of tablet 00:00: MOUTH IN [place] [address] [facility] MORNING Branch AND IN THE EVENING FOR 5 DAYS famotidine 0 Yes TAKE 1 Unive rs 20 mg 1-25 TABLET BY ity of tablet 00:00: MOUTH IN [place] [address] [facility] MORNING Branch AND IN THE EVENING FOR 5 DAYS famotidine 2022-0 Yes TAKE 1 Unive rs 20 mg 1-25 TABLET BY ity of tablet 00:00: MOUTH IN [place] [address] [facility] MORNING [place] AND IN THE EVENING FOR 5 DAYS famotidine 2022-0 Yes TAKE 1 Unive rs 20 mg 1-25 TABLET BY ity of tablet 00:00: MOUTH IN [place] [address] [facility] MORNING [place] AND IN THE EVENING FOR 5 DAYS famotidine 2022-0 Yes TAKE 1 Unive rs 20 mg 1-25 TABLET BY ity of tablet 00:00: MOUTH IN [place] [address] [facility] MORNING [place] AND IN THE EVENING FOR 5 DAYS famotidine 2022-0 Yes TAKE 1 Unive rs 20 mg 1-25 TABLET BY ity of tablet 00:00: MOUTH IN [place] [address] [facility] MORNING [place] AND IN THE EVENING FOR 5 DAYS famotidine 0 Yes TAKE 1 Unive rs 20 mg 1-25 TABLET BY ity of tablet 00:00: MOUTH IN [place] [address] [facility] MORNING [place] AND IN THE EVENING FOR 5 DAYS famotidine 0 Yes TAKE 1 Unive rs 20 mg 1-25 TABLET BY ity of tablet 00:00: MOUTH IN [place] [address] [facility] MORNING [place] AND IN THE EVENING FOR 5 DAYS famotidine 2022-0 Yes TAKE 1 Unive rs 20 mg 1-25 TABLET BY ity of tablet 00:00: MOUTH IN [place] [address] [facility] MORNING [place] AND IN THE EVENING FOR 5 DAYS famotidine 2022-0 Yes TAKE 1 Unive rs 20 mg 1-25 TABLET BY ity of tablet 00:00: MOUTH IN [place] [address] [facility] MORNING [place] AND IN THE EVENING FOR 5 DAYS famotidine 2022-0 202- No TAKE 1 Univ ers 20 mg 1-25 05-12 TABLET BY ity of tablet 00:00: 00:00 MOUTH IN [place] 00 :00 THE [facility] AND IN THE EVENING FOR 5 DAYS famotidine 2022-0 2022- No 20mg 20 mg, Univ ers (PEPCID AC) 09-10 Oral, ity of tablet 20 00:30: 00:53 ONCE, 1 [place] mg 00 :[place] dose, On Medical 09/09/22 Branch at 1830, LUPE dexamethaso 0 2022- No 10mg 10 mg, Uni vers ne sod phos 09-10 Intramuscu i ty of PF 00:30: 00:53 lar, ONCE, [place] injection 00 :00 1 dose, On Medi shanice 10 mg 09/09/22 Branch at 1830, 1 mL predniSONE 2022- No [id number] 40mg Take 2 [facility] 20 mg 09-10-11 tablets by ity of tablet 00:00: 05:59 mouth in [place] 00 :00 the Medical morning Branch for 5 days. famotidine 2022- No [id number] 20mg Take 1 [facility] (PEPCID) 20 09-09 [...] 08/18/22 at 1800, Routine oseltamivir 2021-09- No [id number] 75mg Take 1 [facility] (TAMIFLU) 10-19-19 capsule [...] by ity of immediate 00:00: 00:00 mouth. [place] 00 :00 Medical tablet Branch oxyCODONE [...] tablet 00:00: tablet [place] [facility] naproxen 2-0 Yes naproxen Unive rs 500 mg 9-16 500 mg ity of tablet 00:00: tablet [place] [facility] naproxen 2-0 Yes naproxen Unive rs 500 mg 9-16 500 mg ity of tablet 00:00: tablet [place] [facility] naproxen 2-0 Yes naproxen Unive rs 500 mg 9-16 500 mg ity of tablet 00:00: tablet [place] [facility] naproxen 2-0 Yes naproxen Unive [...] tablet 00:00: tablet [place] [facility] naproxen 2-0 2023- No naproxen Univ ers 500 mg [...] 9-15 capsule by ity of 00:00: mouth. [place] [address] Medical Branch prazosin 2 2021-0 Yes 2mg [...] by it y of 00:00: 00:00 mouth. [place] 00 :00 Medical Branch naloxone 4 2021-0 [...] patch 00 patch Medical Branch lidocaine 5 Yes lidocaine U nivers % (700 8-25 5 % ity of mg/patch) 00:00: topical [place] patch 00 patch Medical Branch lidocaine 5 Yes lidocaine U nivers % [...] 2022- No CALL 911. U nivers mg/actuatio 8 05-12 SPR ity of n nasal 00:00: [...] ity of 00:00: 00 Medical Branch HYDROcodone 0 Yes TAKE [...] 00 Medical Branch HYDROcodone 2021-0 2021- [place] [id number] 1{tbl} Q6H Take 1 Methodi -acetaminop 5-17 05-[address] [facility] ([employer]) 13:50: 00:00 mouth [facility] 10-325 mg 15 :00 every 6 l per tablet (six) hours as needed .acute pain. prn HYDROcodone 2021-0 2021- No [id number] 1{tbl} Q6H Take 1 Methodi -acetaminop 5-17 05-[address] [facility] [employer]) 13:50: 00:00 mouth [facility] 10-325 mg 15 :00 every 6 l per tablet (six) hours as needed .acute pain. prn HYDROcodone 2021-2021- No 1{tbl} Q6H Take 1 Methodi -acetaminop 5-17 05-[address] [employer] [facility] ([employer]) 13:50: 00:00 mouth [facility] 10-325 mg 15 :00 every 6 l per tablet (six) hours as needed .acute pain. prn HYDROcodone 2021-0 2021- [place] [id number] 1{tbl} Q6H Take 1 Methodi -acetaminop 5-17 05-[address] [facility] ([employer]) 13:50: 00:00 mouth [facility] 10-325 mg 15 :00 every 6 l per tablet (six) hours as needed .acute pain. prn HYDROcodone 2021-2021- No 1{tbl} Q6H Take 1 Methodi -acetaminop 5-17 05-17 tablet by [employer]) 13:50: 00:00 mouth [facility] 10-325 mg 15 :00 every 6 l per tablet (six) hours as needed .acute pain. prn tiZANidine 2021-2021- No 4mg Q8H Take 4 mg M [...] 7 l days. cyclobenzap 2022-0 Yes 10mg Q.[id number] Take 10 mg Methodi rine 5-17 [id number] [facility] [address] (FLEXERIL) 13:09: 3D [...] hours as needed. cyclobenzap 2022-0 Yes 10mg Q.[id number] Take 10 mg Methodi rine 5-17 [id number] [facility] [address] (FLEXERIL) 13:09: 3D [...] hours as needed. cyclobenzap 2022-0 Yes 10mg Q.27122334 Take 10 mg Methodi rine 5-17 [id number] [facility] [address] (FLEXERIL) 13:09: 3D [...] hours as needed. cyclobenzap 2022-0 Yes 10mg Q.[id number] Take 10 mg Methodi rine 5-[id number] [facility] [address] (FLEXERIL) 13:09: 3D [...] hours as needed. cyclobenzap 2022-0 Yes 10mg Q.[id number] Take 10 mg Methodi rine 5-17 [id number] [facility] [address] (FLEXERIL) 13:09: 3D [...] hours as needed. cyclobenzap 2022-0 Yes 10mg Q.93162335 Take 10 mg Methodi rine 5-17 [id number] [facility] [address] (FLEXERIL) 13:09: 3D [...] hours as needed. cyclobenzap 2022-0 Yes 10mg Q.10239153 Take 10 mg Methodi rine 5-17 [id number] [facility] [address] (FLEXERIL) 13:09: 3D [...] hours as needed. cyclobenzap 2022-0 Yes 10mg Q.47196130 Take 10 mg Methodi rine 5-17 [id number] [facility] [address] (FLEXERIL) 13:09: 3D [...] hours as needed. cyclobenzap 2022-0 Yes 10mg Q.17759537 Take 10 mg Methodi rine 5-17 [id number] [address] [facility] [address] (FLEXERIL) 13:09: 3D [...] hours as needed. cyclobenzap 2022-0 Yes 10mg Q.12187779 Take 10 mg Methodi rine 5-17 [id number] [facility] [address] (FLEXERIL) 13:09: 3D [...] hours as needed. cyclobenzap 2022-0 Yes 10mg Q.[id number] Take 10 mg Methodi rine 5-17 [id number] [facility] [address] (FLEXERIL) 13:09: 3D [...] hours as needed. cyclobenzap 2022-0 Yes 10mg Q.34454664 Take 10 mg Methodi rine 5-17 [id number] [facility] [address] ([facility]LEX[facility]IL) 13:09: 3D (three) [facility] 10 mg 39 times a l tablet day as needed for muscle spasms. diazePAM 2022-0 Yes 10mg Q12H Take 10 mg [facility] (VALIUM) 10 5-[address] [facility] tablet 13:09: every 12 [facility] 39 (twelve) l hours as needed for anxiety. meloxicam 2022-0 Yes 7.5mg Q12H Take 7.5 [facility] (MOBIC) 7.5 5-[address] mg tablet 13:09: mouth [facility] 39 every 12 l (twelve) hours as needed. cyclobenzap 2022-0 Yes 10mg Q.33423299 Take 10 mg Methodi rine 5-17 [id number] [facility] [address] (FLEXERIL) 13:09: 3D [...] hours as needed. cyclobenzap 2022-0 Yes 10mg Q.[id number] Take 10 mg Methodi rine 5-17 [id number] [facility] [address] (FLEX[facility]IL) 13:09: 3D [...] hours as needed. cyclobenzap 2022-0 Yes 10mg Q.[id number] Take 10 mg Methodi rine 5-17 [id number] [facility] [address] (FLEXERIL) 13:09: 3D [...] hours as needed. cyclobenzap 2022-0 Yes 10mg Q.[id number] Take 10 mg Methodi rine 5-[id number] [facility] [address] (FLEX[facility]IL) 13:09: 3D [...] hours as needed. cyclobenzap 2022-0 Yes 10mg Q.[id number] Take 10 mg Methodi rine 5-17 [id number] [facility] [address] (FLEXERIL) 13:09: 3D [...] hours as needed. cyclobenzap 2022-0 Yes 10mg Q.[id number] Take 10 mg Methodi rine 5-17 [id number] [facility] [address] (FLEXERIL) 13:09: 3D [...] hours as needed. cyclobenzap 2021-0 Yes 10mg Q.[id number] Take 10 mg Methodi rine 5-17 [id number] [facility] [address] (FLEXERIL) 13:09: 3D [...] 12 l (twelve) hours as needed. cyclobenzap 2-0 Yes 10mg Q.[id number] Take 10 mg Methodi rine 5-17 [id number] [facility] [address] (FLEXERIL) 13:09: 3D (three) [facility] 10 mg 39 times a l tablet day as needed for muscle spasms. HYDROcodone 2021-0 2021- [place] [id number] 1{tbl} Q6H Take 1 [facility] -acetaminop 5-17 06-[address] [facility] ([employer]) 00:00: 04:59 mouth [facility] 10-325 mg 00 :00 every 6 l per tablet (six) hours as needed for severe pain for up to 30 days .chronic pain. prn Max Daily Amount: 4 tablets HYDROcodone 2022-0 2022- [place] [id number] 1{tbl} Q6H Take 1 [facility] -acetaminop 5-17 06-[address] [facility] ([employer]) 00:00: 04:59 mouth [facility] 10-325 mg 00 :00 every 6 l per tablet (six) hours as needed for severe pain for up to 30 days .chronic pain. prn Max Daily Amount: 4 tablets HYDROcodone 2022-0 2- No [id number] 1{tbl} Q6H Take 1 [facility] -acetaminop 5-17 06-[address] [facility] ([employer]) 00:00: 04:59 mouth [facility] 10-325 mg 00 :00 every 6 l per tablet (six) hours as needed for severe pain for up to 30 days .chronic pain. prn Max Daily Amount: 4 tablets HYDROcodone 2022-0 2021- No [id number] 1{tbl} Q6H Take 1 [facility] -acetaminop 5-17 06-[address] [facility] ([employer]) 00:00: 04:59 mouth [facility] 10-325 mg 00 :00 every 6 l per tablet (six) hours as needed for severe pain for up to 30 days .chronic pain. prn Max Daily Amount: 4 tablets HYDROcodone 2022-0 2021- No [id number] 1{tbl} Q6H Take 1 [facility] -acetaminop 5-17 06-[address] [facility] ([employer]) 00:00: 04:59 mouth [facility] 10-325 mg 00 :00 every 6 l per tablet (six) hours as needed for severe pain for up to 30 days .chronic pain. prn Max Daily Amount: 4 tablets HYDROcodone 2022-0 2- [place] [id number] 1{tbl} Q6H Take 1 [facility] -acetaminop 5-17 06-[address] [facility] ([employer]) 00:00: 04:59 mouth [facility] 10-325 mg 00 :00 every 6 l per tablet (six) hours as needed for severe pain for up to 30 days .chronic pain. prn Max Daily Amount: 4 tablets HYDROcodone 2022-0 2- No [id number] 1{tbl} Q6H Take 1 [facility] -acetaminop 5-17 [...] Q12H Take 1 Method i (VALIUM) 10 10-01-28 tablet (10 s t MG tablet 00:00: 04:59 mg total) [facility] 00 :00 by mouth l every 12 (twelve) hours as needed for anxiety for up to 60 days. diazePAM 2020-09- No [id number] 10mg Q12H Take 1 [facility] (VALIUM) 10 10-15 tablet (10 s t MG tablet 00:00: 05:59 mg total) [facility] 00 :00 by mouth l every 12 (twelve) hours as needed for anxiety for up to 30 days. diazePAM 2020-09- No [id number] 10mg Q12H Take 1 [facility] (VALIUM) 10 10-15 tablet (10 s t MG tablet 00:00: 05:59 mg total) [facility] 00 :00 by mouth l every 12 (twelve) hours as needed for anxiety for up to 30 days. diazePAM 2020-09- No [id number] 10mg Q12H Take 1 [facility] (VALIUM) 10 10-15 tablet (10 s t MG tablet 00:00: 05:59 mg total) [facility] 00 :00 by mouth l every 12 (twelve) hours as needed for anxiety for up to 30 days. diazePAM 2020-09- No [id number] 10mg Q12H Take 1 [facility] (VALIUM) [...] as needed for anxiety. diazePAM 2020-09- No [id number] 10mg Q12H Take 1 [facility] (VALIUM) 10 09-09 12-05 tablet (10 s t MG tablet 00:00: 05:59 mg total) [facility] 00 :00 by mouth l every 12 (twelve) hours as needed for anxiety for up to 30 days. diazePAM 2020-09- No [id number] 10mg Q12H Take 1 [facility] (VALIUM) 10 09-09 12-05 tablet (10 s t MG tablet 00:00: 05:59 mg total) [facility] 00 :00 by mouth l every 12 (twelve) hours as needed for anxiety for up to 30 days. diazePAM 2020-09- No [id number] 10mg Q12H Take 1 [facility] (VALIUM) 10 09-09 12-05 tablet (10 s t MG tablet 00:00: 05:59 mg total) [facility] 00 :00 by mouth l every 12 (twelve) hours as needed for anxiety for up to 30 days. diazePAM 2020-09- No [id number] 10mg Q12H Take 1 [facility] (VALIUM) 10 09-09 12-05 tablet (10 s t MG tablet 00:00: 05:59 mg total) [facility] 00 :00 by mouth l every 12 (twelve) hours as needed for anxiety for up to 30 days. azithromyci 2020-09- No [id number] 250mg QD Take 1 Methodi n 008 -[address] (Zithromax 00:00: 00:00 (250 mg Hos [facility] Z-Ok) 250 00 :00 total) by l MG tablet mouth daily. Take 2 tablets the first day, then 1 tablet daily for 4 days. pantoprazol 0 Yes [id number] 40mg Take 1 Univers e 4-18 tablet by ity of (PROTONIX) 00:00: mouth [place] 40 mg EC 00 daily. Medical tablet Branch dicyclomine Yes [id number] 20mg Take 1 [facility] 20 mg 4-18 tablet by ity of tablet 00:00: mouth [place] 00 every 6 Medical (six) Branch hours as needed for Abdominal pain. ondansetron Yes [id number] 4mg Take 1 Univers (ZOFRAN) 4 4-18 tablet by ity of mg tablet 00:00: mouth [place] 00 every 8 Medical (eight) Branch hours as needed for Nausea and Vomiting (N/V). pantoprazol Yes [id number] 40mg Take 1 Univers e 4-18 tablet by ity of (PROTONIX) 00:00: mouth [place] 40 mg EC 00 daily. Medical tablet Branch dicyclomine 0 Yes [id number] 20mg Take 1 [facility] 20 mg 4-18 tablet by ity of tablet 00:00: mouth [place] 00 every 6 Medical (six) Branch hours as needed for Abdominal pain. ondansetron 0 Yes [id number] 4mg Take 1 [facility] (ZOFRAN) 4 4-18 tablet by ity of mg tablet 00:00: mouth [place] 00 every 8 Medical (eight) Branch hours as needed for Nausea and Vomiting (N/V). pantoprazol 0 Yes [id number] 40mg Take 1 Univers e 4-18 tablet by ity of (PROTONIX) 00:00: mouth [place] 40 mg EC 00 daily. Medical tablet Branch dicyclomine Yes [id number] 20mg Take 1 [facility] 20 mg 4-18 tablet by ity of tablet 00:00: mouth [place] 00 every 6 Medical (six) Branch hours as needed for Abdominal pain. ondansetron 2020-0 Yes [id number] 4mg Take 1 [facility] (ZOFRAN) 4 4-18 tablet by ity of mg tablet 00:00: mouth [place] 00 every 8 Medical (eight) Branch hours as needed for Nausea and Vomiting (N/V). pantoprazol 2020-0 Yes [id number] 40mg Take 1 Univers e 4-18 tablet by ity of (PROTONIX) 00:00: mouth [place] 40 mg EC 00 daily. Medical tablet Branch dicyclomine 2020-0 Yes [id number] 20mg Take 1 [facility] 20 mg 4-18 tablet by ity of tablet 00:00: mouth [place] 00 every 6 Medical (six) Branch hours as needed for Abdominal pain. ondansetron 2020-0 Yes [id number] 4mg Take 1 [facility] (ZOFRAN) 4 4-18 tablet by ity of mg tablet 00:00: mouth [place] 00 every 8 Medical (eight) Branch hours as needed for Nausea and Vomiting (N/V). pantoprazol 2020-0 Yes [id number] 40mg Take 1 Univers e 4-18 tablet by ity of (PROTONIX) 00:00: mouth [place] 40 mg EC 00 daily. Medical tablet Branch dicyclomine 2020-0 Yes [id number] 20mg Take 1 [facility] 20 mg 4-18 tablet by ity of tablet 00:00: mouth [place] 00 every 6 Medical (six) Branch hours as needed for Abdominal pain. ondansetron 2020-0 Yes [id number] 4mg Take 1 [facility] (ZOFRAN) 4 4-18 tablet by ity of mg tablet 00:00: mouth [place] 00 every 8 Medical (eight) Branch hours as needed for Nausea and Vomiting (N/V). pantoprazol 2020-0 Yes [id number] 40mg Take 1 Univers e 4-18 tablet by ity of (PROTONIX) 00:00: mouth [place] 40 mg EC 00 daily. Medical tablet Branch dicyclomine 2020-0 Yes [id number] 20mg Take 1 [facility] 20 mg 4-18 tablet by ity of tablet 00:00: mouth [place] 00 every 6 Medical (six) Branch hours as needed for Abdominal pain. ondansetron 2020-0 Yes [id number] 4mg Take 1 [facility] (ZOFRAN) 4 4-18 tablet by ity of mg tablet 00:00: mouth [place] 00 every 8 Medical (eight) Branch hours as needed for Nausea and Vomiting (N/V). pantoprazol 2020-0 Yes [id number] 40mg Take 1 Univers e 4-18 tablet by ity of (PROTONIX) 00:00: mouth [place] 40 mg EC 00 daily. Medical tablet Branch dicyclomine 2020-0 Yes [id number] 20mg Take 1 [facility] 20 mg 4-18 tablet by ity of tablet 00:00: mouth [place] 00 every 6 Medical (six) Branch hours as needed for Abdominal pain. ondansetron 2020-0 Yes [id number] 4mg Take 1 [facility] (ZOFRAN) 4 4-18 tablet by ity of mg tablet 00:00: mouth [place] 00 every 8 Medical (eight) Branch hours as needed for Nausea and Vomiting (N/V). pantoprazol 2020-0 Yes [id number] 40mg Take 1 Univers e 4-18 tablet by ity of (PROTONIX) 00:00: mouth [place] 40 mg EC 00 daily. Medical tablet Branch dicyclomine 2020-0 Yes [id number] 20mg Take 1 [facility] 20 mg 4-18 tablet by ity of tablet 00:00: mouth [place] 00 every 6 Medical (six) Branch hours as needed for Abdominal pain. ondansetron 2020-0 Yes [id number] 4mg Take 1 [facility] (ZOFRAN) 4 4-18 tablet by ity of mg tablet 00:00: mouth [place] 00 every 8 Medical (eight) Branch hours as needed for Nausea and Vomiting (N/V). pantoprazol 2020-0 Yes [id number] 40mg Take 1 Univers e 4-18 tablet by ity of (PROTONIX) 00:00: mouth [place] 40 mg EC 00 daily. Medical tablet Branch dicyclomine 2020-0 Yes [id number] 20mg Take 1 [facility] 20 mg 4-18 tablet by ity of tablet 00:00: mouth [place] 00 every 6 Medical (six) Branch hours as needed for Abdominal pain. ondansetron 2020-0 Yes [id number] 4mg Take 1 [facility] (ZOFRAN) 4 4-18 tablet by ity of mg tablet 00:00: mouth [place] 00 every 8 Medical (eight) Branch hours as needed for Nausea and Vomiting (N/V). pantoprazol 2020-0 Yes [id number] 40mg Take 1 Univers e 4-18 tablet by ity of (PROTONIX) 00:00: mouth [place] 40 mg EC 00 daily. Medical tablet Branch dicyclomine 2020-0 Yes [id number] 20mg Take 1 [facility] 20 mg 4-18 tablet by ity of tablet 00:00: mouth [place] 00 every 6 Medical (six) Branch hours as needed for Abdominal pain. ondansetron 0 Yes [id number] 4mg Take 1 [facility] (ZOFRAN) 4 4-18 tablet by ity of mg tablet 00:00: mouth [place] 00 every 8 Medical (eight) Branch hours as needed for Nausea and Vomiting (N/V). pantoprazol 2020-0 Yes [id number] 40mg Take 1 Univers e 4-18 tablet by ity of (PROTONIX) 00:00: mouth [place] 40 mg EC 00 daily. Medical tablet Branch dicyclomine 0 Yes [id number] 20mg Take 1 [facility] 20 mg 4-18 tablet by ity of tablet 00:00: mouth [place] 00 every 6 Medical (six) Branch hours as needed for Abdominal pain. ondansetron 2020-0 Yes [id number] 4mg Take 1 [facility] (ZOFRAN) 4 4-18 tablet by ity of mg tablet 00:00: mouth [place] 00 every 8 Medical (eight) Branch hours as needed for Nausea and Vomiting (N/V). pantoprazol 2020-0 Yes [id number] 40mg Take 1 Univers e 4-18 tablet by ity of (PROTONIX) 00:00: mouth [place] 40 mg EC 00 daily. Medical tablet Branch dicyclomine 2020-0 Yes [id number] 20mg Take 1 [facility] 20 mg 4-18 tablet by ity of tablet 00:00: mouth [place] 00 every 6 Medical (six) Branch hours as needed for Abdominal pain. ondansetron 2020-0 Yes [id number] 4mg Take 1 [facility] (ZOFRAN) 4 4-18 tablet by ity of mg tablet 00:00: mouth [place] 00 every 8 Medical (eight) Branch hours as needed for Nausea and Vomiting (N/V). pantoprazol 2020-0 Yes [id number] 40mg Take 1 Univers e 4-18 tablet by ity of (PROTONIX) 00:00: mouth [place] 40 mg EC 00 daily. Medical tablet Branch dicyclomine 2020-0 Yes [id number] 20mg Take 1 [facility] 20 mg 4-18 tablet by ity of tablet 00:00: mouth [place] 00 every 6 Medical (six) Branch hours as needed for Abdominal pain. ondansetron 2020-0 Yes [id number] 4mg Take 1 [facility] (ZOFRAN) 4 4-18 tablet by ity of mg tablet 00:00: mouth [place] 00 every 8 Medical (eight) Branch hours as needed for Nausea and Vomiting (N/V). pantoprazol 2020-0 Yes [id number] 40mg Take 1 Univers e 4-18 tablet by ity of (PROTONIX) 00:00: mouth [place] 40 mg EC 00 daily. Medical tablet Branch dicyclomine 0 Yes [id number] 20mg Take 1 [facility] 20 mg 4-18 tablet by ity of tablet 00:00: mouth [place] 00 every 6 Medical (six) Branch hours as needed for Abdominal pain. ondansetron 0 Yes [id number] 4mg Take 1 [facility] (ZOFRAN) 4 4-18 tablet by ity of mg tablet 00:00: mouth [place] 00 every 8 Medical (eight) Branch hours as needed for Nausea and Vomiting (N/V). pantoprazol 2020-0 Yes [id number] 40mg Take 1 Univers e 4-18 tablet by ity of (PROTONIX) 00:00: mouth [place] 40 mg EC 00 daily. Medical tablet Branch dicyclomine 2020-0 Yes [id number] 20mg Take 1 [facility] 20 mg 4-18 tablet by ity of tablet 00:00: mouth [place] 00 every 6 Medical (six) Branch hours as needed for Abdominal pain. ondansetron 2020-0 Yes [id number] 4mg Take 1 [facility] (ZOFRAN) 4 4-18 tablet by ity of mg tablet 00:00: mouth [place] 00 every 8 Medical (eight) Branch hours as needed for Nausea and Vomiting (N/V). pantoprazol 2020-0 Yes [id number] 40mg Take 1 Univers e 4-18 tablet by ity of (PROTONIX) 00:00: mouth [place] 40 mg EC 00 daily. Medical tablet Branch dicyclomine 2020-0 Yes [id number] 20mg Take 1 [facility] 20 mg 4-18 tablet by ity of tablet 00:00: mouth [place] 00 every 6 Medical (six) Branch hours as needed for Abdominal pain. ondansetron 2020-0 Yes [id number] 4mg Take 1 [facility] (ZOFRAN) 4 4-18 tablet by ity of mg tablet 00:00: mouth [place] 00 every 8 Medical (eight) Branch hours as needed for Nausea and Vomiting (N/V). pantoprazol 2020-0 Yes [id number] 40mg Take 1 Univers e 4-18 tablet by ity of (PROTONIX) 00:00: mouth [place] 40 mg EC 00 daily. [facility] tablet [facility] dicyclomine 2020-0 Yes [id number] 20mg Take 1 [facility]-18 tablet by [facility] tablet 00:00: mouth [place] 00 every 6 Medical (six) Branch hours as needed for Abdominal pain. ondansetron 2020-0 Yes [id number] 4mg Take 1 [facility] (ZOFR[facility]) 4 4-18 tablet by [facility] mg tablet 00:00: mouth [place] 00 every 8 Medical (eight) Branch hours as needed for Nausea and Vomiting (N/V). pantoprazol 2020-0 Yes [id number] 40mg Take 1 [facility] e 4-18 tablet by [facility] (PROTONIX) 00:00: mouth [place] 40 mg EC 00 daily. [facility] tablet Branch dicyclomine 2020-0 Yes [id number] 20mg Take 1 [facility] 20 mg 4-18 tablet by [facility] tablet 00:00: mouth [place] 00 every 6 Medical (six) Branch hours as needed for Abdominal pain. ondansetron 2020-0 Yes [id number] 4mg Take 1 [facility] (ZOFR[facility]) 4 4-18 tablet by [facility] mg tablet 00:00: mouth [place] 00 every 8 Medical (eight) Branch hours as needed for Nausea and Vomiting (N/V). pantoprazol 2020-0 Yes [id number] 40mg Take 1 [facility] 4-18 tablet by [facility] (PROTONIX) 00:00: mouth [place] 40 mg EC 00 daily. [facility] tablet [facility] dicyclomine 2020-0 Yes [id number] 20mg Take 1 [facility] 20 mg 4-18 tablet by [facility] tablet 00:00: mouth [place] 00 every 6 Medical (six) Branch hours as needed for Abdominal pain. ondansetron 2020-0 Yes [id number] 4mg Take 1 [facility] (ZOFR[facility]) 4 4-18 tablet by [facility] mg tablet 00:00: mouth [place] 00 every 8 Medical (eight) Branch hours as needed for Nausea and Vomiting (N/V). pantoprazol 2020-0 Yes [id number] 40mg Take 1 [facility] e 4-18 tablet by [facility] (PROTONIX) 00:00: mouth [place] 40 mg EC 00 daily. [facility] tablet [facility] dicyclomine 2020-0 Yes [id number] 20mg Take 1 [facility] 20 mg 4-18 tablet by [facility] tablet 00:00: mouth [place] 00 every 6 Medical (six) Branch hours as needed for Abdominal pain. ondansetron 2020-0 Yes [id number] 4mg Take 1 [facility] (ZOFR[facility]) 4 4-18 tablet by [facility] mg tablet 00:00: mouth [place] 00 every 8 Medical (eight) Branch hours as needed for Nausea and Vomiting (N/V). pantoprazol 2020-0 Yes [id number] 40mg Take 1 [facility] e 4-18 tablet by [facility] (PROTONIX) 00:00: mouth [place] 40 mg EC 00 daily. [facility] tablet [facility] dicyclomine 2020-0 Yes [id number] 20mg Take 1 [facility] 20 mg 4-18 tablet by [facility] tablet 00:00: mouth [place] 00 every 6 Medical (six) Branch hours as needed for Abdominal pain. ondansetron 2020-0 Yes [id number] 4mg Take 1 [facility] (ZOFR[facility]) 4 4-18 tablet by [facility] mg tablet 00:00: mouth [place] 00 every 8 Medical (eight) Branch hours as needed for Nausea and Vomiting (N/V). pantoprazol 2020-0 Yes [id number] 40mg Take 1 [facility] 4-18 tablet by [facility] (PROTONIX) 00:00: mouth [place] 40 mg EC 00 daily. [facility] tablet [facility] dicyclomine 2020-0 Yes [id number] 20mg Take 1 [facility] 20 mg 4-18 tablet by [facility] tablet 00:00: mouth [place] 00 every 6 Medical (six) Branch hours as needed for Abdominal pain. ondansetron 2020-0 Yes [id number] 4mg Take 1 [facility] (ZOFR[facility]) 4 4-18 tablet by [facility] mg tablet 00:00: mouth [place] 00 every 8 Medical (eight) Branch hours as needed for Nausea and Vomiting (N/V). pantoprazol 2020-0 Yes [id number] 40mg Take 1 [facility] e 4-18 tablet by [facility] (PROTONIX) 00:00: mouth [place] 40 mg EC 00 daily. [facility] tablet [facility] dicyclomine 2020-0 Yes [id number] 20mg Take 1 [facility] 20 mg 4-18 tablet by [facility] tablet 00:00: mouth [place] 00 every 6 Medical (six) Branch hours as needed for Abdominal pain. ondansetron 2020-0 Yes [id number] 4mg Take 1 [facility] (ZOFR[facility]) 4 4-18 tablet by [facility] mg tablet 00:00: mouth [place] 00 every 8 Medical (eight) Branch hours as needed for Nausea and Vomiting (N/V). pantoprazol 2020-0 Yes [id number] 40mg Take 1 [facility] e 4-18 tablet by [facility] (PROTONIX) 00:00: mouth [place] 40 mg EC 00 daily. [facility] tablet [facility] dicyclomine 2020-0 Yes [id number] 20mg Take 1 [facility] 20 mg 4-18 tablet by [facility] tablet 00:00: mouth [place] 00 every 6 Medical (six) Branch hours as needed for Abdominal pain. ondansetron 2020-0 Yes [id number] 4mg Take 1 [facility] (ZOFR[facility]) 4 4-18 tablet by [facility] mg tablet 00:00: mouth [place] 00 every 8 Medical (eight) Branch hours as needed for Nausea and Vomiting (N/V). pantoprazol 2020-0 Yes [id number] 40mg Take 1 [facility] e 4-18 tablet by [facility] (PROTONIX) 00:00: mouth [place] 40 mg EC 00 daily. [facility] tablet [facility] dicyclomine 2020-0 Yes [id number] 20mg Take 1 [facility] 20 mg 4-18 tablet by [facility] tablet 00:00: mouth [place] 00 every 6 Medical (six) Branch hours as needed for Abdominal pain. pantoprazol 2020-0 Yes [id number] 40mg Take 1 [facility] e 4-18 tablet by [facility] (PROTONIX) 00:00: mouth [place] 40 mg EC 00 daily. [facility] tablet [facility] dicyclomine 2020-0 Yes [id number] 20mg Take 1 [facility] 20 mg 4-18 tablet by [facility] tablet 00:00: mouth [place] 00 every 6 Medical (six) Branch hours as needed for Abdominal pain. pantoprazol 2020-0 Yes [id number] 40mg Take 1 [facility] e 4-18 tablet by [facility] (PROTONIX) 00:00: mouth [place] 40 mg EC 00 daily. [facility] tablet [facility] dicyclomine 2020-0 Yes [id number] 20mg Take 1 [facility] 20 mg 4-18 tablet by [facility] tablet 00:00: mouth [place] 00 every 6 Medical (six) Branch hours as needed for Abdominal pain. pantoprazol 2020-0 Yes [id number] 40mg Take 1 [facility] e 4-18 tablet by [facility] (PROTONIX) 00:00: mouth [place] 40 mg EC 00 daily. [facility] tablet [facility] dicyclomine 2020-0 Yes [id number] 20mg Take 1 [facility] 20 mg 4-18 tablet by [facility] tablet 00:00: mouth [place] 00 every 6 Medical (six) Branch hours as needed for Abdominal pain. pantoprazol 2020-0 Yes [id number] 40mg Take 1 [facility] e 4-18 tablet by [facility] (PROTONIX) 00:00: mouth [place] 40 mg EC 00 daily. [facility] tablet [facility] dicyclomine 2020-0 Yes [id number] 20mg Take 1 [facility] 20 mg 4-18 tablet by [facility] tablet 00:00: mouth [place] 00 every 6 Medical (six) Branch hours as needed for Abdominal pain. pantoprazol 2020-0 Yes [id number] 40mg Take 1 [facility] e 4-18 tablet by [facility] (PROTONIX) 00:00: mouth [place] 40 mg EC 00 daily. [facility] tablet [facility] dicyclomine 2020-0 Yes [id number] 20mg Take 1 [facility] 20 mg 4-18 tablet by [facility] tablet 00:00: mouth [place] 00 every 6 Medical (six) Branch hours as needed for Abdominal pain. pantoprazol 2020-0 Yes [id number] 40mg Take 1 [facility] e 4-18 tablet by [facility] (PROTONIX) 00:00: mouth [place] 40 mg EC 00 daily. [facility] tablet [facility] dicyclomine 2020-0 Yes [id number] 20mg Take 1 [facility] 20 mg 4-18 tablet by [facility] tablet 00:00: mouth [place] 00 every 6 Medical (six) Branch hours as needed for Abdominal pain. pantoprazol 2020-0 Yes [id number] 40mg Take 1 [facility] e 4-18 tablet by [facility] (PROTONIX) 00:00: mouth [place] 40 mg EC 00 daily. [facility] tablet [facility] dicyclomine 2020-0 Yes [id number] 20mg Take 1 [facility] 20 mg 4-18 tablet by [facility] tablet 00:00: mouth [place] 00 every 6 Medical (six) Branch hours as needed for Abdominal pain. pantoprazol 2020-0 Yes [id number] 40mg Take 1 [facility] e 4-18 tablet by [facility] (PROTONIX) 00:00: mouth [place] 40 mg EC 00 daily. [facility] tablet [facility] dicyclomine 2020-0 Yes [id number] 20mg Take 1 [facility] 20 mg 4-18 tablet by [facility] tablet 00:00: mouth [place] 00 every 6 Medical (six) Branch hours as needed for Abdominal pain. pantoprazol 2020-0 Yes [id number] 40mg Take 1 [facility] e 4-18 tablet by [facility] (PROTONIX) 00:00: mouth [place] 40 mg EC 00 daily. [facility] tablet [facility] dicyclomine 2020-0 Yes [id number] 20mg Take 1 [facility] 20 mg 4-18 tablet by [facility] tablet 00:00: mouth [place] 00 every 6 Medical (six) Branch hours as needed for Abdominal pain. pantoprazol 2020-0 Yes [id number] 40mg Take 1 [facility] e 4-18 tablet by [facility] (PROTONIX) 00:00: mouth [place] 40 mg EC 00 daily. [facility] tablet Branch dicyclomine 2020-0 Yes [id number] 20mg Take 1 [facility] 20 mg 4-18 tablet by [facility] tablet 00:00: mouth [place] 00 every 6 Medical (six) Branch hours as needed for Abdominal pain. pantoprazol 2020-0 Yes [id number] 40mg Take 1 [facility] 4-18 tablet by [facility] (PROTONIX) 00:00: mouth [place] 40 mg EC 00 daily. [facility] tablet [facility] dicyclomine 2020-0 Yes [id number] 20mg Take 1 [facility] 20 mg 4-18 tablet by [facility] tablet 00:00: mouth [place] 00 every 6 Medical (six) Branch hours as needed for Abdominal pain. pantoprazol 2021-0 Yes [id number] 40mg Take 1 [facility] e 4-18 tablet by [facility] (PROTONIX) 00:00: mouth [place] 40 mg EC 00 daily. [facility] tablet [facility] dicyclomine 2020-0 Yes [id number] 20mg Take 1 [facility] 20 mg 4-18 tablet by [facility] tablet 00:00: mouth [place] 00 every 6 Medical (six) Branch hours as needed for Abdominal pain. pantoprazol 2020-0 Yes [id number] 40mg Take 1 [facility] e 4-18 tablet by [facility] (PROTONIX) 00:00: mouth [place] 40 mg EC 00 daily. [facility] tablet [facility] dicyclomine 2020-0 Yes [id number] 20mg Take 1 [facility] 20 mg 4-18 tablet by [facility] tablet 00:00: mouth [place] 00 every 6 Medical (six) Branch hours as needed for Abdominal pain. pantoprazol 2020-0 Yes [id number] 40mg Take 1 [facility] e 4-18 tablet by [facility] (PROTONIX) 00:00: mouth [place] 40 mg EC 00 daily. [facility] tablet [facility] dicyclomine 2020-0 Yes [id number] 20mg Take 1 [facility] 20 mg 4-18 tablet by [facility] tablet 00:00: mouth [place] 00 every 6 Medical (six) Branch hours as needed for Abdominal pain. pantoprazol 2020-0 Yes [id number] 40mg Take 1 [facility] e 4-18 tablet by [facility] (PROTONIX) 00:00: mouth [place] 40 mg EC 00 daily. [facility] tablet Branch dicyclomine 2020-0 Yes [id number] 20mg Take 1 [facility] 20 mg 4-18 tablet by [facility] tablet 00:00: mouth [place] 00 every 6 Medical (six) Branch hours as needed for Abdominal pain. pantoprazol 2020-0 Yes [id number] 40mg Take 1 [facility] e 4-18 tablet by [facility] (PROTONIX) 00:00: mouth [place] 40 mg EC 00 daily. [facility] tablet Branch dicyclomine 2020-0 Yes [id number] 20mg Take 1 [facility] 20 mg 4-18 tablet by [facility] tablet 00:00: mouth [place] 00 every 6 Medical (six) Branch hours as needed for Abdominal pain. pantoprazol 2020-0 Yes [id number] 40mg Take 1 [facility] e 4-18 tablet by [facility] (PROTONIX) 00:00: mouth [place] 40 mg EC 00 daily. [facility] tablet Branch dicyclomine 2020-0 Yes [id number] 20mg Take 1 [facility] 20 mg 4-18 tablet by [facility] tablet 00:00: mouth [place] 00 every 6 Medical (six) Branch hours as needed for Abdominal pain. pantoprazol 2020-0 Yes [id number] 40mg Take 1 [facility] e 4-18 tablet by [facility] (PROTONIX) 00:00: mouth [place] 40 mg EC 00 daily. [facility] tablet Branch dicyclomine 2020-0 Yes [id number] 20mg Take 1 [facility] 20 mg 4-18 tablet by [facility] tablet 00:00: mouth [place] 00 every 6 Medical (six) Branch hours as needed for Abdominal pain. pantoprazol 2020-0 Yes [id number] 40mg Take 1 [facility] e 4-18 tablet by [facility] (PROTONIX) 00:00: mouth [place] 40 mg EC 00 daily. [facility] tablet Branch dicyclomine 2020-0 Yes [id number] 20mg Take 1 [facility] 20 mg 4-18 tablet by [facility] tablet 00:00: mouth [place] 00 every 6 Medical (six) Branch hours as needed for Abdominal pain. pantoprazol 2020-0 Yes [id number] 40mg Take 1 [facility] e 4-18 tablet by [facility] (PROTONIX) 00:00: mouth [place] 40 mg EC 00 daily. [facility] tablet Branch dicyclomine 2020-0 Yes [id number] 20mg Take 1 [facility] 20 mg 4-18 tablet by [facility] tablet 00:00: mouth [place] 00 every 6 Medical (six) Branch hours as needed for Abdominal pain. pantoprazol 2020-0 Yes [id number] 40mg Take 1 [facility] e 4-18 tablet by [facility] (PROTONIX) 00:00: mouth [place] 40 mg EC 00 daily. [facility] tablet Branch dicyclomine 2020-0 Yes [id number] 20mg Take 1 [facility] 20 mg 4-18 tablet by [facility] tablet 00:00: mouth [place] 00 every 6 Medical (six) Branch hours as needed for Abdominal pain. pantoprazol 2020-0 Yes [id number] 40mg Take 1 [facility] e 4-18 tablet by [facility] (PROTONIX) 00:00: mouth [place] 40 mg EC 00 daily. [facility] tablet Branch dicyclomine 2020-0 Yes [id number] 20mg Take 1 [facility] 20 mg 4-18 tablet by [facility] tablet 00:00: mouth [place] 00 every 6 Medical (six) Branch hours as needed for Abdominal pain. pantoprazol 2020-0 Yes [id number] 40mg Take 1 [facility] e 4-18 tablet by [facility] (PROTONIX) 00:00: mouth [place] 40 mg EC 00 daily. [facility] tablet Branch pantoprazol 2020-0 Yes [id number] 40mg Take 1 [facility] e 4-18 tablet by [facility] (PROTONIX) 00:00: mouth [place] 40 mg EC 00 daily. [facility] tablet Branch dicyclomine 0 Yes [id number] 20mg Take 1 [facility] 20 mg 4-18 tablet by [facility] tablet 00:00: mouth [place] 00 every 6 Medical (six) Branch hours as needed for Abdominal pain. dicyclomine 0 Yes [id number] 20mg Take 1 [facility] 20 mg 4-18 tablet by [facility] tablet 00:00: mouth [place] 00 every 6 Medical (six) Branch hours as needed for Abdominal pain. ondansetron 0 Yes [id number] 4mg Take 1 [facility] (ZOFRAN) 4 4-18 tablet by [facility] mg tablet 00:00: mouth [place] 00 every 8 Medical (eight) Branch hours as needed for Nausea and Vomiting (N/V). pantoprazol 0 Yes [id number] 40mg Take 1 [facility] e 4-18 tablet by [facility] (PROTONIX) 00:00: mouth [place] 40 mg EC 00 daily. [facility] tablet Branch dicyclomine 2020-0 Yes [id number] 20mg Take 1 [facility] 20 mg 4-18 tablet by [facility] tablet 00:00: mouth [place] 00 every 6 Medical (six) Branch hours as needed for Abdominal pain. ondansetron 2020-0 Yes [id number] 4mg Take 1 [facility] (ZOFRAN) 4 4-18 tablet by [facility] mg tablet 00:00: mouth [place] 00 every 8 Medical (eight) Branch hours as needed for Nausea and Vomiting (N/V). pantoprazol 2020-0 Yes [id number] 40mg Take 1 [facility] e 4-18 tablet by [facility] (PROTONIX) 00:00: mouth [place] 40 mg EC 00 daily. [facility] tablet Branch dicyclomine 2020-0 Yes [id number] 20mg Take 1 [facility] 20 mg 4-18 tablet by [facility] tablet 00:00: mouth [place] 00 every 6 Medical (six) Branch hours as needed for Abdominal pain. ondansetron 2020-0 Yes [id number] 4mg Take 1 [facility] (ZOFRAN) 4 4-18 tablet by [facility] mg tablet 00:00: mouth [place] 00 every 8 Medical (eight) Branch hours as needed for Nausea and Vomiting (N/V). pantoprazol 2020-0 Yes [id number] 40mg Take 1 [facility] e 4-18 tablet by [facility] (PROTONIX) 00:00: mouth [place] 40 mg EC 00 daily. [facility] tablet Branch dicyclomine 2020-0 Yes [id number] 20mg Take 1 [facility] 20 mg 4-18 tablet by [facility] tablet 00:00: mouth [place] 00 every 6 Medical (six) Branch hours as needed for Abdominal pain. ondansetron 2020-0 Yes [id number] 4mg Take 1 [facility] (ZOFRAN) 4 4-18 tablet by [facility] mg tablet 00:00: mouth [place] 00 every 8 Medical (eight) Branch hours as needed for Nausea and Vomiting (N/V). pantoprazol 2020-0 Yes [id number] 40mg Take 1 [facility] e 4-18 tablet by [facility] (PROTONIX) 00:00: mouth [place] 40 mg EC 00 daily. [facility] tablet Branch dicyclomine 2020-0 Yes [id number] 20mg Take 1 [facility] 20 mg 4-18 tablet by [facility] tablet 00:00: mouth [place] 00 every 6 Medical (six) Branch hours as needed for Abdominal pain. ondansetron 2020-0 Yes [id number] 4mg Take 1 [facility] (ZOFR[facility]) 4 4-18 tablet by [facility] mg tablet 00:00: mouth [place] 00 every 8 Medical (eight) Branch hours as needed for Nausea and Vomiting (N/V). pantoprazol 2020-0 Yes [id number] 40mg Take 1 [facility] e 4-18 tablet by [facility] (PROTONIX) 00:00: mouth [place] 40 mg EC 00 daily. [facility] tablet Branch dicyclomine 2020-0 Yes [id number] 20mg Take 1 [facility] 20 mg 4-18 tablet by [facility] tablet 00:00: mouth [place] 00 every 6 Medical (six) Branch hours as needed for Abdominal pain. ondansetron 2020-0 Yes [id number] 4mg Take 1 [facility] (ZOFRAN) 4 4-18 tablet by [facility] mg tablet 00:00: mouth [place] 00 every 8 Medical (eight) Branch hours as needed for Nausea and Vomiting (N/V). pantoprazol 2020-0 Yes [id number] 40mg Take 1 [facility] e 4-18 tablet by [facility] (PROTONIX) 00:00: mouth [place] 40 mg EC 00 daily. [facility] tablet Branch dicyclomine 2020-0 Yes [id number] 20mg Take 1 [facility] 20 mg 4-18 tablet by [facility] tablet 00:00: mouth [place] 00 every 6 Medical (six) Branch hours as needed for Abdominal pain. ondansetron 2020-0 Yes [id number] 4mg Take 1 [facility] (ZOFRAN) 4 4-18 tablet by [facility] mg tablet 00:00: mouth [place] 00 every 8 Medical (eight) Branch hours as needed for Nausea and Vomiting (N/V). pantoprazol 2020-0 Yes [id number] 40mg Take 1 [facility] e 4-18 tablet by [facility] (PROTONIX) 00:00: mouth [place] 40 mg EC 00 daily. [facility] tablet Branch dicyclomine 2020-0 Yes [id number] 20mg Take 1 [facility] 20 mg 4-18 tablet by [facility] tablet 00:00: mouth [place] 00 every 6 Medical (six) Branch hours as needed for Abdominal pain. ondansetron 2020-0 Yes [id number] 4mg Take 1 [facility] (ZOFRAN) 4 4-18 tablet by [facility] mg tablet 00:00: mouth [place] 00 every 8 Medical (eight) Branch hours as needed for Nausea and Vomiting (N/V). pantoprazol 2020-0 Yes [id number] 40mg Take 1 [facility] e 4-18 tablet by [facility] (PROTONIX) 00:00: mouth [place] 40 mg EC 00 daily. [facility] tablet Branch dicyclomine 2020-0 Yes [id number] 20mg Take 1 [facility] 20 mg 4-18 tablet by [facility] tablet 00:00: mouth [place] 00 every 6 Medical (six) Branch hours as needed for Abdominal pain. ondansetron 2020-0 Yes [id number] 4mg Take 1 [facility] (ZOFRAN) 4 4-18 tablet by [facility] mg tablet 00:00: mouth [place] 00 every 8 Medical (eight) Branch hours as needed for Nausea and Vomiting (N/V). pantoprazol 2020-0 Yes [id number] 40mg Take 1 [facility] e 4-18 tablet by [facility] (PROTONIX) 00:00: mouth [place] 40 mg EC 00 daily. [facility] tablet Branch dicyclomine 2020-0 Yes [id number] 20mg Take 1 [facility] 20 mg 4-18 tablet by [facility] tablet 00:00: mouth [place] 00 every 6 Medical (six) Branch hours as needed for Abdominal pain. ondansetron 0 Yes [id number] 4mg Take 1 [facility] (ZOFRAN) 4 4-18 tablet by [facility] mg tablet 00:00: mouth [place] 00 every 8 Medical (eight) Branch hours as needed for Nausea and Vomiting (N/V). pantoprazol 2020-0 Yes [id number] 40mg Take 1 [facility] e 4-18 tablet by [facility] (PROTONIX) 00:00: mouth [place] 40 mg EC 00 daily. [facility] tablet Branch dicyclomine 0 Yes [id number] 20mg Take 1 [facility] 20 mg 4-18 tablet by [facility] tablet 00:00: mouth [place] 00 every 6 Medical (six) Branch hours as needed for Abdominal pain. ondansetron 2020-0 Yes [id number] 4mg Take 1 [facility] (ZOFR[facility]) 4 4-18 tablet by [facility] mg tablet 00:00: mouth [place] 00 every 8 Medical (eight) Branch hours as needed for Nausea and Vomiting (N/V). pantoprazol 2020-0 Yes [id number] 40mg Take 1 [facility] e 4-18 tablet by [facility] (PROTONIX) 00:00: mouth [place] 40 mg EC 00 daily. [facility] tablet Branch dicyclomine 2020-0 Yes [id number] 20mg Take 1 [facility] 20 mg 4-18 tablet by [facility] tablet 00:00: mouth [place] 00 every 6 Medical (six) Branch hours as needed for Abdominal pain. ondansetron 2020-0 Yes [id number] 4mg Take 1 [facility] (ZOFRAN) 4 4-18 tablet by [facility] mg tablet 00:00: mouth [place] 00 every 8 Medical (eight) Branch hours as needed for Nausea and Vomiting (N/V). pantoprazol 2020-0 Yes [id number] 40mg Take 1 [facility] e 4-18 tablet by [facility] (PROTONIX) 00:00: mouth [place] 40 mg EC 00 daily. [facility] tablet Branch dicyclomine 2020-0 Yes [id number] 20mg Take 1 [facility] 20 mg 4-18 tablet by [facility] tablet 00:00: mouth [place] 00 every 6 Medical (six) Branch hours as needed for Abdominal pain. ondansetron 2020-0 Yes [id number] 4mg Take 1 [facility] (ZOFR[facility]) 4 4-18 tablet by [facility] mg tablet 00:00: mouth [place] 00 every 8 Medical (eight) Branch hours as needed for Nausea and Vomiting (N/V). pantoprazol 2020-0 Yes [id number] 40mg Take 1 [facility] e 4-18 tablet by [facility] (PROTONIX) 00:00: mouth [place] 40 mg EC 00 daily. [facility] tablet Branch dicyclomine 0 Yes [id number] 20mg Take 1 [facility] 20 mg 4-18 tablet by [facility] tablet 00:00: mouth [place] 00 every 6 Medical (six) Branch hours as needed for Abdominal pain. ondansetron 0 Yes [id number] 4mg Take 1 [facility] (ZOFR[facility]) 4 4-18 tablet by [facility] mg tablet 00:00: mouth [place] 00 every 8 Medical (eight) Branch hours as needed for Nausea and Vomiting (N/V). pantoprazol 2020-0 Yes [id number] 40mg Take 1 [facility] e 4-18 tablet by [facility] (PROTONIX) 00:00: mouth [place] 40 mg EC 00 daily. [facility] tablet Branch dicyclomine 2020-0 Yes [id number] 20mg Take 1 [facility] 20 mg 4-18 tablet by [facility] tablet 00:00: mouth [place] 00 every 6 Medical (six) Branch hours as needed for Abdominal pain. ondansetron 2020-0 Yes [id number] 4mg Take 1 [facility] (ZOFR[facility]) 4 4-18 tablet by [facility] mg tablet 00:00: mouth [place] 00 every 8 Medical (eight) Branch hours as needed for Nausea and Vomiting (N/V). pantoprazol 2020-0 Yes [id number] 40mg Take 1 [facility] e 4-18 tablet by [facility] (PROTONIX) 00:00: mouth [place] 40 mg EC 00 daily. [facility] tablet Branch dicyclomine 2020-0 Yes [id number] 20mg Take 1 [facility] 20 mg 4-18 tablet by [facility] tablet 00:00: mouth [place] 00 every 6 Medical (six) Branch hours as needed for Abdominal pain. ondansetron 2020-0 Yes [id number] 4mg Take 1 [facility] (ZOFR[facility]) 4 4-18 tablet by [facility] mg tablet 00:00: mouth [place] 00 every 8 Medical (eight) Branch hours as needed for Nausea and Vomiting (N/V). pantoprazol 2020-0 Yes [id number] 40mg Take 1 [facility] e 4-18 tablet by [facility] (PROTONIX) 00:00: mouth [place] 40 mg EC 00 daily. [facility] tablet Branch dicyclomine 2020-0 Yes [id number] 20mg Take 1 [facility] 20 mg 4-18 tablet by [facility] tablet 00:00: mouth [place] 00 every 6 Medical (six) Branch hours as needed for Abdominal pain. ondansetron 2020-0 Yes [id number] 4mg Take 1 [facility] (ZOFR[facility]) 4 4-18 tablet by [facility] mg tablet 00:00: mouth [place] 00 every 8 Medical (eight) Branch hours as needed for Nausea and Vomiting (N/V). pantoprazol 2020-0 Yes [id number] 40mg Take 1 [facility] e 4-18 tablet by [facility] (PROTONIX) 00:00: mouth [place] 40 mg EC 00 daily. [facility] tablet Branch dicyclomine 2020-0 Yes [id number] 20mg Take 1 [facility] 20 mg 4-18 tablet by [facility] tablet 00:00: mouth [place] 00 every 6 Medical (six) Branch hours as needed for Abdominal pain. ondansetron 2020-0 Yes [id number] 4mg Take 1 [facility] (ZOFR[facility]) 4 4-18 tablet by [facility] mg tablet 00:00: mouth [place] 00 every 8 Medical (eight) Branch hours as needed for Nausea and Vomiting (N/V). pantoprazol 2020-0 Yes [id number] 40mg Take 1 [facility] e 4-18 tablet by [facility] (PROTONIX) 00:00: mouth [place] 40 mg EC 00 daily. [facility] tablet Branch dicyclomine 2020-0 Yes [id number] 20mg Take 1 [facility] 20 mg 4-18 tablet by [facility] tablet 00:00: mouth [place] 00 every 6 Medical (six) Branch hours as needed for Abdominal pain. ondansetron 2020-0 Yes [id number] 4mg Take 1 [facility] (ZOFR[facility]) 4 4-18 tablet by [facility] mg tablet 00:00: mouth [place] 00 every 8 Medical (eight) Branch hours as needed for Nausea and Vomiting (N/V). pantoprazol 2020-0 Yes [id number] 40mg Take 1 [facility] e 4-18 tablet by [facility] (PROTONIX) 00:00: mouth [place] 40 mg EC 00 daily. [facility] tablet Branch dicyclomine 2020-0 Yes [id number] 20mg Take 1 [facility] 20 mg 4-18 tablet by [facility] tablet 00:00: mouth [place] 00 every 6 Medical (six) Branch hours as needed for Abdominal pain. ondansetron 2020-0 Yes [id number] 4mg Take 1 [facility] (ZOFR[facility]) 4 4-18 tablet by [facility] mg tablet 00:00: mouth [place] 00 every 8 Medical (eight) Branch hours as needed for Nausea and Vomiting (N/V). pantoprazol 2020-0 Yes [id number] 40mg Take 1 [facility] e 4-18 tablet by [facility] (PROTONIX) 00:00: mouth [place] 40 mg EC 00 daily. [facility] tablet Branch dicyclomine 2020-0 Yes [id number] 20mg Take 1 [facility] 20 mg 4-18 tablet by [facility] tablet 00:00: mouth [place] 00 every 6 Medical (six) Branch hours as needed for Abdominal pain. ondansetron 2020-0 Yes [id number] 4mg Take 1 [facility] (ZOFR[facility]) 4 4-18 tablet by [facility] mg tablet 00:00: mouth [place] 00 every 8 Medical (eight) Branch hours as needed for Nausea and Vomiting (N/V). pantoprazol 2020-0 Yes [id number] 40mg Take 1 [facility] e 4-18 tablet by [facility] (PROTONIX) 00:00: mouth [place] 40 mg EC 00 daily. Medical tablet Branch dicyclomine 2020-0 Yes [id number] 20mg Take 1 [facility] 20 mg 4-18 tablet by [facility] tablet 00:00: mouth [place] 00 every 6 Medical (six) Branch hours as needed for Abdominal pain. ondansetron 2020-0 Yes [id number] 4mg Take 1 [facility] (ZOFR[facility]) 4 4-18 tablet by [facility] mg tablet 00:00: mouth [place] 00 every 8 Medical (eight) Branch hours as needed for Nausea and Vomiting (N/V). pantoprazol Yes [id number] 40mg Take 1 [facility] e 4-18 tablet by [facility] (PROTONIX) 00:00: mouth [place] 40 mg EC 00 daily. Medical tablet Branch dicyclomine Yes [id number] 20mg Take 1 [facility] 20 mg 4-18 tablet by [facility] tablet 00:00: mouth [place] 00 every 6 Medical (six) Branch hours as needed for Abdominal pain. ondansetron Yes [id number] 4mg Take 1 [facility] (ZOFR[facility]) 4 4-18 tablet by [facility] mg tablet 00:00: mouth [place] 00 every 8 Medical (eight) Branch hours as needed for Nausea and Vomiting (N/V). ondansetron 3- No [id number] 4mg Take 1 [facility] (ZOFRAN) 4 4-18 06-27 tablet by [facility] mg tablet 00:00: 00:00 mouth [place] 00 :00 every 8 Medical (eight) Branch hours as needed for Nausea and Vomiting (N/V). ondansetron 3- No [id number] 4mg Take 1 [facility] (ZOFR[facility]) 4 4-18 [...] (scale 4-6). Indication s: acute pain acetaminoph Yes [id number] 1{tbl} Take 1 Un travis [...] 2020-0 Yes [id number] 1{tbl} Take 1 Un travsi en-codeine 8-08 tablet by [facility] (TYLENOL-CO [...] 00 DAILY UNTIL FINISHED. nystatin 2020-0 Yes [id number] [facility] 2-05 affected [facility]y of unit/gram 00:00: area(s) 3 Zay as ointment 00 (three) [facility] times [facility] daily. nystatin 2020-0 Yes [id number] Apply to [facility] 100,000 2-05 affected ity of unit/gram 00:00: area(s) 3 [facility]ay as ointment 00 (three) [facility] times [facility] daily. nystatin 2020-0 Yes [id number] Apply to [facility] 100,000 2-05 affected ity of unit/gram 00:00: area(s) 3 Zay as ointment 00 (three) [facility] times [facility] daily. nystatin 2020-0 Yes [id number] Apply to [facility] 100,000 2-05 affected ity of unit/gram 00:00: area(s) 3 Zay as ointment 00 (three) [facility] times [facility] daily. nystatin 2020-0 Yes [id number] Apply to [facility] 100,000 2-05 affected ity of unit/gram 00:00: area(s) 3 Zay as ointment 00 (three) [facility] times [facility] daily. nystatin 2020-0 Yes [id number] Apply to [facility] 100,000 2-05 affected ity of unit/gram 00:00: area(s) 3 Zay as ointment 00 (three) [facility] times [facility] daily. nystatin 2020-0 Yes [id number] Apply to [facility] 100,000 2-05 affected ity of unit/gram 00:00: area(s) 3 Zay as ointment 00 (three) [facility] times [facility] daily. nystatin 2020-0 Yes [id number] Apply to [facility] 100,000 2-05 affected ity of unit/gram 00:00: area(s) 3 Zay as ointment 00 (three) [facility] times [facility] daily. nystatin 2020-0 Yes [id number] Apply to [facility] 100,000 2-05 affected ity of unit/gram 00:00: area(s) 3 Zay as ointment 00 (three) [facility] times [facility] daily. nystatin 2020-0 Yes [id number] Apply to [facility] 100,000 2-05 affected ity of unit/gram 00:00: area(s) 3 Zay as ointment 00 (three) [facility] times [facility] daily. nystatin 2020-0 Yes [id number] Apply to [facility] 100,000 2-05 affected ity of unit/gram 00:00: area(s) 3 Zay as ointment 00 (three) [facility] times [facility] daily. nystatin 2020-0 Yes [id number] Apply to [facility] 100,000 2-05 affected ity of unit/gram 00:00: area(s) 3 Zay as ointment 00 (three) [facility] times [facility] daily. nystatin 2020-0 Yes [id number] Apply to [facility] 100,000 2-05 affected ity of unit/gram 00:00: area(s) 3 Zay as ointment 00 (three) [facility] times [facility] daily. nystatin 2020-0 Yes [id number] Apply to [facility] 100,000 2-05 affected ity of unit/gram 00:00: area(s) 3 [facility]ay as ointment 00 (three) [facility] times [facility] daily. nystatin 2020-0 Yes [id number] Apply to [facility] 100,000 2-05 affected ity of unit/gram 00:00: area(s) 3 Zay as ointment 00 (three) [facility] times [facility] daily. nystatin 2020-0 Yes [id number] Apply to [facility] 100,000 2-05 affected ity of unit/gram 00:00: area(s) 3 [facility]ay as ointment 00 (three) [facility] times [facility] daily. nystatin 2020-0 Yes [id number] Apply to [facility] 100,000 2-05 affected ity of unit/gram 00:00: area(s) 3 [facility] as ointment 00 (three) [facility] times [facility] daily. nystatin 2020-0 Yes [id number] Apply to [facility] 100,000 2-05 affected ity of unit/gram 00:00: area(s) 3 [facility]ay as ointment 00 (three) [facility] times [facility] daily. nystatin 2020-0 Yes [id number] Apply to [facility] 100,000 2-05 affected ity of unit/gram 00:00: area(s) 3 Zay as ointment 00 (three) [facility] times [facility] daily. nystatin 2020-0 Yes [id number] Apply to [facility] 100,000 2-05 affected ity of unit/gram 00:00: area(s) 3 Zay as ointment 00 (three) [facility] times [facility] daily. nystatin 2020-0 Yes [id number] Apply to [facility] 100,000 2-05 affected ity of unit/gram 00:00: area(s) 3 [facility]ay as ointment 00 (three) [facility] times [facility] daily. nystatin 2020-0 Yes [id number] Apply to [facility] 100,000 2-05 affected ity of unit/gram 00:00: area(s) 3 [facility]ay as ointment 00 (three) [facility] times [facility] daily. nystatin 2020-0 Yes [id number] Apply to [facility] 100,000 2-05 affected ity of unit/gram 00:00: area(s) 3 Zay as ointment 00 (three) [facility] times [facility] daily. nystatin 2020-0 Yes [id number] Apply to [facility] 100,000 2-05 affected ity of unit/gram 00:00: area(s) 3 [facility]ay as ointment 00 (three) [facility] times [facility] daily. nystatin 2020-0 Yes [id number] Apply to [facility] 100,000 2-05 affected ity of unit/gram 00:00: area(s) 3 Zay as ointment 00 (three) [facility] times [facility] daily. nystatin 2020-0 Yes [id number] Apply to [facility] 100,000 2-05 affected ity of unit/gram 00:00: area(s) 3 Zay as ointment 00 (three) [facility] times [facility] daily. nystatin 2020-0 Yes [id number] Apply to [facility] 100,000 2-05 affected ity of unit/gram 00:00: area(s) 3 Zya as ointment 00 (three) [facility] times [facility] daily. nystatin 2020-0 Yes [id number] Apply to [facility] 100,000 2-05 affected ity of unit/gram 00:00: area(s) 3 Zay as ointment 00 (three) [facility] times [facility] daily. nystatin 2020-0 Yes [id number] Apply to [facility] 100,000 2-05 affected ity of unit/gram 00:00: area(s) 3 Zay as ointment 00 (three) [facility] times [facility] daily. nystatin 2020-0 Yes [id number] Apply to [facility] 100,000 2-05 affected ity of unit/gram 00:00: area(s) 3 Zay as ointment 00 (three) [facility] times [facility] daily. nystatin 2020-0 Yes [id number] Apply to [facility] 100,000 2-05 affected ity of unit/gram 00:00: area(s) 3 [facility]ay as ointment 00 (three) [facility] times [facility] daily. nystatin 2020-0 Yes [id number] Apply to [facility] 100,000 2-05 affected ity of unit/gram 00:00: area(s) 3 Zay as ointment 00 (three) [facility] times [facility] daily. nystatin 2020-0 Yes [id number] Apply to [facility] 100,000 2-05 affected ity of unit/gram 00:00: area(s) 3 Zay as ointment 00 (three) [facility] times [facility] daily. nystatin 2020-0 Yes [id number] Apply to [facility] 100,000 2-05 affected ity of unit/gram 00:00: area(s) 3 Zay as ointment 00 (three) [facility] times [facility] daily. nystatin 2020-0 Yes [id number] Apply to [facility] 100,000 2-05 affected ity of unit/gram 00:00: area(s) 3 [facility]ay as ointment 00 (three) [facility] times [facility] daily. nystatin 2020-0 Yes [id number] Apply to [facility] 100,000 2-05 affected ity of unit/gram 00:00: area(s) 3 [facility]ay as ointment 00 (three) [facility] times [facility] daily. nystatin 2020-0 Yes [id number] Apply to [facility] 100,000 2-05 affected ity of unit/gram 00:00: area(s) 3 Zay as ointment 00 (three) [facility] times [facility] daily. nystatin 2020-0 Yes [id number] Apply to [facility] 100,000 2-05 affected ity of unit/gram 00:00: area(s) 3 [facility]ay as ointment 00 (three) [facility] times [facility] daily. nystatin 2020-0 Yes [id number] Apply to [facility] 100,000 2-05 affected ity of unit/gram 00:00: area(s) 3 Zay as ointment 00 (three) [facility] times [facility] daily. nystatin 2020-0 Yes [id number] Apply to [facility] 100,000 2-05 affected ity of unit/gram 00:00: area(s) 3 Zay as ointment 00 (three) [facility] times [facility] daily. nystatin 2020-0 Yes [id number] Apply to [facility] 100,000 2-05 affected ity of unit/gram 00:00: area(s) 3 [facility]ay as ointment 00 (three) [facility] times [facility] daily. nystatin 2020-0 Yes [id number] Apply to [facility] 100,000 2-05 affected ity of unit/gram 00:00: area(s) 3 Zay as ointment 00 (three) [facility] times [facility] daily. nystatin 2020-0 Yes [id number] Apply to [facility] 100,000 2-05 affected ity of unit/gram 00:00: area(s) 3 [facility]ay as ointment 00 (three) [facility] times [facility] daily. nystatin 2020-0 Yes [id number] Apply to [facility] 100,000 2-05 affected ity of unit/gram 00:00: area(s) 3 [facility]ay as ointment 00 (three) [facility] times [facility] daily. nystatin 2020-0 Yes [id number] Apply to [facility] 100,000 2-05 affected ity of unit/gram 00:00: area(s) 3 [facility]ay as ointment 00 (three) [facility] times [facility] daily. nystatin 2020-0 Yes [id number] Apply to [facility] 100,000 2-05 affected ity of unit/gram 00:00: area(s) 3 [facility] as ointment 00 (three) [facility] times [facility] daily. nystatin 2020-0 Yes [id number] Apply to [facility] 100,000 2-05 affected ity of unit/gram 00:00: area(s) 3 [facility]ay as ointment 00 (three) [facility] times [facility] daily. nystatin 2020-0 Yes [id number] Apply to [facility] 100,000 2-05 affected ity of unit/gram 00:00: area(s) 3 [facility] as ointment 00 (three) [facility] times [facility] daily. nystatin 2020-0 Yes [id number] Apply to [facility] 100,000 2-05 affected ity of unit/gram 00:00: area(s) 3 [facility]ay as ointment 00 (three) [facility] times [facility] daily. nystatin 2020-0 Yes [id number] Apply to [facility] 100,000 2-05 affected ity of unit/gram 00:00: area(s) 3 [facility]ay as ointment 00 (three) [facility] times [facility] daily. nystatin 2020-0 Yes [id number] Apply to [facility] 100,000 2-05 affected ity of unit/gram 00:00: area(s) 3 [facility]ay as ointment 00 (three) [facility] times [facility] daily. nystatin 2020-0 Yes [id number] Apply to [facility] 100,000 2-05 affected ity of unit/gram 00:00: area(s) 3 [facility]ay as ointment 00 (three) [facility] times [facility] daily. nystatin 2020-0 Yes [id number] Apply to [facility] 100,000 2-05 affected ity of unit/gram 00:00: area(s) 3 [facility]ay as ointment 00 (three) [facility] times [facility] daily. nystatin 2020-0 Yes [id number] Apply to [facility] 100,000 2-05 affected ity of unit/gram 00:00: area(s) 3 [facility]ay as ointment 00 (three) [facility] times [facility] daily. nystatin 2020-0 Yes [id number] Apply to [facility] 100,000 2-05 affected ity of unit/gram 00:00: area(s) 3 [facility]ay as ointment 00 (three) [facility] times [facility] daily. nystatin 2020-0 Yes [id number] Apply to [facility] 100,000 2-05 affected ity of unit/gram 00:00: area(s) 3 [facility]ay as ointment 00 (three) [facility] times [facility] daily. nystatin 2020-0 Yes [id number] Apply to [facility] 100,000 2-05 affected ity of unit/gram 00:00: area(s) 3 Zay as ointment 00 (three) [facility] times [facility] daily. nystatin 2020-0 Yes [id number] Apply to [facility] 100,000 2-05 affected ity of unit/gram 00:00: area(s) 3 [facility]ay as ointment 00 (three) [facility] times [facility] daily. nystatin 2020-0 Yes [id number] Apply to [facility] 100,000 2-05 affected ity of unit/gram 00:00: area(s) 3 [facility]ay as ointment 00 (three) [facility] times [facility] daily. nystatin 2020-0 Yes [id number] Apply to [facility] 100,000 2-05 affected ity of unit/gram 00:00: area(s) 3 [facility]ay as ointment 00 (three) [facility] times [facility] daily. nystatin 2020-0 Yes [id number] Apply to [facility] 100,000 2-05 affected ity of unit/gram 00:00: area(s) 3 Zay as ointment 00 (three) [facility] times [facility] daily. nystatin 2020-0 Yes [id number] Apply to [facility] 100,000 2-05 affected ity of unit/gram 00:00: area(s) 3 Zay as ointment 00 (three) [facility] times [facility] daily. nystatin 2020-0 Yes [id number] Apply to [facility] 100,000 2-05 affected ity of unit/gram 00:00: area(s) 3 [facility]ay as ointment 00 (three) [facility] times [facility] daily. nystatin 2020-0 Yes [id number] Apply to [facility] 100,000 2-05 affected ity of unit/gram 00:00: area(s) 3 Zay as ointment 00 (three) [facility] times [facility] daily. nystatin 2020-0 Yes [id number] Apply to [facility] 100,000 2-05 affected ity of unit/gram 00:00: area(s) 3 [facility]ay as ointment 00 (three) Medical times [facility] daily. nystatin 2020-0 Yes [id number] Apply to [facility] 100,000 2-05 affected ity of unit/gram 00:00: area(s) 3 Zay as ointment 00 (three) Medical times [facility] daily. nystatin 2020-0 Yes [id number] Apply to [facility] 100,000 2-05 affected ity of unit/gram 00:00: area(s) 3 Zay as ointment 00 (three) Medical times [facility] daily. nystatin 2020-0 Yes [id number] Apply to [facility] 100,000 2-05 affected ity of unit/gram 00:00: area(s) 3 [facility]ay as ointment 00 (three) Medical times [facility] daily. nystatin 2020-0 Yes [id number] Apply to [facility] 100,000 2-05 affected ity of unit/gram 00:00: area(s) 3 Zay as ointment 00 (three) Medical times [facility] daily. nystatin 2020-0 Yes [id number] Apply to [facility] 100,000 2-05 affected ity of unit/gram 00:00: area(s) 3 Zay as ointment 00 (three) Medical times [facility] daily. nystatin 2020-0 Yes [id number] Apply to [facility] 100,000 2-05 affected ity [...] Tablet Tablet 00 DIRECTED. medroxyPROG 2019-0 Yes [id number] 150mg [facility] ESTERone 5-14 ity of (DEPO-PROVE 18:30: [place] [facility]) 00 [facility] injection [facility] 150 mg medroxyPROG 2019-0 Yes [id number] 150mg [facility] ESTERone 5-14 ity of (DEPO-PROVE 18:30: [place] [facility]) 00 [facility] injection [facility] 150 mg medroxyPROG 2019-0 Yes [id number] 150mg [facility] ESTERone 5-14 ity of (DEPO-PROVE 18:30: [place] [facility]) 00 [facility] injection [facility] 150 mg medroxyPROG 2019-0 Yes [id number] 150mg [facility] ESTERone 5-14 ity of (DEPO-PROVE 18:30: [place] [facility]) 00 [facility] injection [facility] 150 mg medroxyPROG 2019-0 Yes [id number] 150mg [facility] ESTERone 5-14 ity of (DEPO-PROVE 18:30: [place] [facility]) 00 [facility] injection [facility] 150 mg medroxyPROG 2019-0 Yes [id number] 150mg [facility] ESTERone 5-14 ity of (DEPO-PROVE 18:30: [place] [facility]) 00 [facility] injection [facility] 150 mg medroxyPROG 2019-0 Yes [id number] 150mg [facility] ESTERone 5-14 ity of (DEPO-PROVE 18:30: [place] [facility]) 00 [facility] injection [facility] 150 mg medroxyPROG 2019-0 Yes [id number] 150mg [facility] ESTERone 5-14 ity of (DEPO-PROVE 18:30: [place] [facility]) 00 [facility] injection [facility] 150 mg medroxyPROG 2019-0 Yes [id number] 150mg [facility] ESTERone 5-14 ity of (DEPO-PROVE 18:30: [place] [facility]) 00 [facility] injection [facility] 150 mg medroxyPROG 2019-0 Yes [id number] 150mg [facility] ESTERone 5-14 ity of (DEPO-PROVE 18:30: [place] [facility]) 00 [facility] injection [facility] 150 mg medroxyPROG 2019-0 Yes [id number] 150mg [facility] ESTERone 5-14 ity of (DEPO-PROVE 18:30: [place] [facility]) 00 [facility] injection [facility] 150 mg medroxyPROG 2019-0 Yes [id number] 150mg [facility] ESTERone 5-14 ity of (DEPO-PROVE 18:30: [place] [facility]) 00 [facility] injection [facility] 150 mg medroxyPROG 2019-0 Yes [id number] 150mg [facility] ESTERone 5-14 ity of (DEPO-PROVE 18:30: [place] [facility]) 00 [facility] injection [facility] 150 mg medroxyPROG 2019-0 Yes [id number] 150mg [facility] ESTERone 5-14 ity of (DEPO-PROVE 18:30: [place] [facility]) 00 [facility] injection [facility] 150 mg medroxyPROG 2019-0 Yes [id number] 150mg [facility] ESTERone 5-14 ity of (DEPO-PROVE 18:30: [place] [facility]) 00 [facility] injection [facility] 150 mg medroxyPROG 2019-0 Yes [id number] 150mg [facility] ESTERone 5-14 ity of (DEPO-PROVE 18:30: [place] [facility]) 00 [facility] injection [facility] 150 mg medroxyPROG 2019-0 Yes [id number] 150mg [facility] ESTERone 5-14 ity of (DEPO-PROVE 18:30: [place] [facility]) 00 [facility] injection [facility] 150 mg medroxyPROG 2019-0 Yes [id number] 150mg [facility] ESTERone 5-14 ity of (DEPO-PROVE 18:30: [place] [facility]) 00 [facility] injection [facility] 150 mg medroxyPROG 2019-0 Yes [id number] 150mg [facility] ESTERone 5-14 ity of (DEPO-PROVE 18:30: [place] [facility]) 00 [facility] injection [facility] 150 mg medroxyPROG 2019-0 Yes [id number] 150mg [facility] ESTERone 5-14 ity of (DEPO-PROVE 18:30: [place] [facility]) 00 [facility] injection [facility] 150 mg medroxyPROG 2019-0 Yes [id number] 150mg [facility] ESTERone 5-14 ity of (DEPO-PROVE 18:30: [place] [facility]) 00 [facility] injection [facility] 150 mg medroxyPROG 2019-0 Yes [id number] 150mg [facility] ESTERone 5-14 ity of (DEPO-PROVE 18:30: [place] [facility]) 00 [facility] injection [facility] 150 mg medroxyPROG 2019-0 Yes [id number] 150mg [facility] ESTERone 5-14 ity of (DEPO-PROVE 18:30: [place] [facility]) 00 [facility] injection [facility] 150 mg medroxyPROG 2019-0 Yes [id number] 150mg [facility] ESTERone 5-14 ity of (DEPO-PROVE 18:30: [place] [facility]) 00 [facility] injection [facility] 150 mg medroxyPROG 2019-0 Yes [id number] 150mg [facility] ESTERone 5-14 ity of (DEPO-PROVE 18:30: [place] [facility]) 00 [facility] injection [facility] 150 mg medroxyPROG 2019-0 Yes [id number] 150mg [facility] ESTERone 5-14 ity of (DEPO-PROVE 18:30: [place] [facility]) 00 [facility] injection [facility] 150 mg medroxyPROG 2019-0 Yes [id number] 150mg [facility] ESTERone 5-14 ity of (DEPO-PROVE 18:30: [place] [facility]) 00 [facility] injection [facility] 150 mg medroxyPROG 2019-0 Yes [id number] 150mg [facility] ESTERone 5-14 ity of (DEPO-PROVE 18:30: [place] [facility]) 00 [facility] injection [facility] 150 mg medroxyPROG 2019-0 Yes [id number] 150mg [facility] ESTERone 5-14 ity of (DEPO-PROVE 18:30: [place] [facility]) 00 [facility] injection [facility] 150 mg medroxyPROG 2019-0 Yes [id number] 150mg [facility] ESTERone 5-14 ity of (DEPO-PROVE 18:30: [place] [facility]) 00 [facility] injection [facility] 150 mg medroxyPROG 2019-0 Yes [id number] 150mg [facility] ESTERone 5-14 ity of (DEPO-PROVE 18:30: [place] [facility]) 00 [facility] injection [facility] 150 mg medroxyPROG 2019-0 Yes [id number] 150mg [facility] ESTERone 5-14 ity of (DEPO-PROVE 18:30: [place] [facility]) 00 [facility] injection [facility] 150 mg medroxyPROG 2019-0 Yes [id number] 150mg [facility] ESTERone 5-14 ity of (DEPO-PROVE 18:30: [place] [facility]) 00 [facility] injection [facility] 150 mg medroxyPROG 2019-0 Yes [id number] 150mg [facility] ESTERone 5-14 ity of (DEPO-PROVE 18:30: [place] [facility]) 00 [facility] injection [facility] 150 mg medroxyPROG 2019-0 Yes [id number] 150mg [facility] ESTERone 5-14 ity of (DEPO-PROVE 18:30: [place] [facility]) 00 [facility] injection [facility] 150 mg medroxyPROG 2019-0 Yes [id number] 150mg [facility] ESTERone 5-14 ity of (DEPO-PROVE 18:30: [place] [facility]) 00 [facility] injection [facility] 150 mg medroxyPROG 2019-0 Yes [id number] 150mg [facility] ESTERone 5-14 ity of (DEPO-PROVE 18:30: [place] [facility]) 00 [facility] injection [facility] 150 mg medroxyPROG 2019-0 Yes [id number] 150mg [facility] ESTERone 5-14 ity of (DEPO-PROVE 18:30: [place] [facility]) 00 Medical injection [facility] 150 mg medroxyPROG 2019-0 Yes [id number] 150mg [facility] ESTERone 5-14 ity of (DEPO-PROVE 18:30: [place] [facility]) 00 [facility] injection [facility] 150 mg medroxyPROG 2019-0 Yes [id number] 150mg [facility] ESTERone 5-14 ity of (DEPO-PROVE 18:30: [place] [facility]) 00 [facility] injection [facility] 150 mg medroxyPROG 2019-0 Yes [id number] 150mg [facility] ESTERone 5-14 ity of (DEPO-PROVE 18:30: [place] [facility]) 00 Medical injection [facility] 150 mg medroxyPROG 2019-0 Yes [id number] 150mg [facility] ESTERone 5-14 ity of (DEPO-PROVE 18:30: [place] [facility]) 00 Medical injection [facility] 150 mg medroxyPROG 2019-0 Yes [id number] 150mg [facility] ESTERone 5-14 ity of (DEPO-PROVE 18:30: [place] [facility]) 00 Medical injection [facility] 150 mg medroxyPROG 2019-0 Yes [id number] 150mg [facility] ESTERone 5-14 ity of (DEPO-PROVE 18:30: [place] [facility]) 00 Medical injection [facility] 150 mg medroxyPROG 2019-0 Yes [id number] 150mg [facility] ESTERone 5-14 ity of (DEPO-PROVE 18:30: [place] [facility]) 00 Medical injection [facility] 150 mg medroxyPROG 2019-0 Yes [id number] 150mg [facility] ESTERone 5-14 ity of (DEPO-PROVE 18:30: [place] [facility]) 00 Medical injection [facility] 150 mg medroxyPROG 2019-0 Yes [id number] 150mg [facility] ESTERone 5-14 ity of (DEPO-PROVE 18:30: [place] [facility]) 00 Medical injection [facility] 150 mg medroxyPROG 2019-0 Yes [id number] 150mg [facility] ESTERone 5-14 ity of (DEPO-PROVE 18:30: [place] [facility]) 00 Medical injection [facility] 150 mg medroxyPROG 2019-0 Yes [id number] 150mg [facility] ESTERone 5-14 ity of (DEPO-PROVE 18:30: [place] [facility]) 00 Medical injection [facility] 150 mg medroxyPROG 2019-0 Yes [id number] 150mg [facility] ESTERone 5-14 ity of (DEPO-PROVE 18:30: [place] [facility]) 00 Medical injection [facility] 150 mg medroxyPROG 2019-0 Yes [id number] 150mg [facility] ESTERone 5-14 ity of (DEPO-PROVE 18:30: [place] [facility]) 00 Medical injection [facility] 150 mg medroxyPROG 2019-0 Yes [id number] 150mg [facility] ESTERone 5-14 ity of (DEPO-PROVE 18:30: [place] [facility]) 00 Medical injection [facility] 150 mg medroxyPROG 2019-0 Yes [id number] 150mg [facility] ESTERone 5-14 ity of (DEPO-PROVE 18:30: [place] [facility]) 00 Medical injection [facility] 150 mg medroxyPROG 2019-0 Yes [id number] 150mg [facility] ESTERone 5-14 ity of (DEPO-PROVE 18:30: [place] [facility]) 00 Medical injection [facility] 150 mg medroxyPROG 2019-0 Yes [id number] 150mg [facility] ESTERone 5-14 ity of (DEPO-PROVE 18:30: [place] [facility]) 00 Medical injection [facility] 150 mg medroxyPROG 2019-0 Yes [id number] 150mg [facility] ESTERone 5-14 ity of (DEPO-PROVE 18:30: [place] [facility]) 00 Medical injection [facility] 150 mg medroxyPROG 2019-0 Yes [id number] 150mg [facility] ESTERone 5-14 ity of (DEPO-PROVE 18:30: [place] [facility]) 00 Medical injection [facility] 150 mg medroxyPROG 2019-0 Yes [id number] 150mg [facility] ESTERone 5-14 ity of (DEPO-PROVE 18:30: [place] [facility]) 00 Medical injection [facility] 150 mg medroxyPROG 2019-0 Yes [id number] 150mg [facility] ESTERone 5-14 ity of (DEPO-PROVE 18:30: [place] [facility]) 00 Medical injection [facility] 150 mg medroxyPROG 2019-0 Yes [id number] 150mg [facility] ESTERone 5-14 ity of (DEPO-PROVE 18:30: [place] [facility]) 00 Medical injection [facility] 150 mg medroxyPROG 2019-0 Yes [id number] 150mg [facility] ESTERone 5-14 ity of (DEPO-PROVE 18:30: [place] [facility]) 00 Medical injection [facility] 150 mg medroxyPROG 2019-0 Yes [id number] 150mg [facility] ESTERone 5-14 ity of (DEPO-PROVE 18:30: [place] [facility]) 00 Medical injection [facility] 150 mg medroxyPROG 2019-0 Yes [id number] 150mg [facility] ESTERone 5-14 ity of (DEPO-PROVE 18:30: [place] [facility]) 00 Medical injection [facility] 150 mg medroxyPROG 2019-0 Yes [id number] 150mg [facility] ESTERone 5-14 ity of (DEPO-PROVE 18:30: [place] [facility]) 00 Medical injection [facility] 150 mg medroxyPROG 2019-0 Yes [id number] 150mg [facility] ESTERone 5-14 ity of (DEPO-PROVE 18:30: [place] [facility]) 00 Medical injection [facility] 150 mg medroxyPROG 2019-0 Yes [id number] 150mg [facility] ESTERone 5-14 ity of (DEPO-PROVE 18:30: [place] [facility]) 00 Medical injection [facility] 150 mg medroxyPROG 2019-0 Yes [id number] 150mg [facility] ESTERone 5-14 ity of (DEPO-PROVE 18:30: [place] [facility]) 00 Medical injection Branch 150 mg medroxyPROG 2019-0 Yes [id number] 150mg [facility] ESTERone 5-14 ity of (DEPO-PROVE 18:30: [place] [facility]) 00 Medical injection [facility] 150 mg medroxyPROG 2019-0 Yes [id number] 150mg [facility] ESTERone 5-14 ity of (DEPO-PROVE 18:30: [place] [facility]) 00 Medical injection Branch 150 mg medroxyPROG 2019-0 Yes [id number] 150mg [facility] ESTERone 5-14 ity of (DEPO-PROVE 18:30: [place] [facility]) 00 Medical injection [facility] 150 mg medroxyPROG 2019-0 Yes [id number] 150mg [facility] ESTERone 5-14 ity of (DEPO-PROVE 18:30: [place] [facility]) 00 Medical injection Branch 150 mg Keppra 500 Keppra 500 2019-0 Yes M.D. U T MG Oral MG Oral 102 Physici Tablet Tablet 00:00: ans 00 Immunizations Ordered Immunization Filled Date Status Comments Sour ce Name Immunization Name PFIZER COVID-19 MRNA 2021-08-06 Completed Meth odist VACCINATION 00:00:00 [facility] PFIZER COVID-19 MRNA 2021-08-06 Completed Meth odist VACCINATION 00:00:00 [facility] PFIZER COVID-19 MRNA 2021-08-06 Completed Meth odist VACCINATION 00:00:00 [facility] PFIZER COVID-19 MRNA 2021-08-06 Completed Meth odist VACCINATION 00:00:00 [facility] PFIZER COVID-19 MRNA 2021-08-06 Completed Meth odist VACCINATION 00:00:00 [facility] PFIZER COVID-19 MRNA 2021-08-06 Completed Meth odist VACCINATION 00:00:00 [facility] PFIZER COVID-19 MRNA 2021-08-06 Completed Meth odist VACCINATION 00:00:00 [facility] PFIZER COVID-19 MRNA 2021-08-06 Completed Meth odist VACCINATION 00:00:00 [facility] PFIZER COVID-19 MRNA 2021-08-06 Completed Meth odist VACCINATION 00:00:00 [facility] SARS-COV-2 COVID-19 2021-08-06 Completed Unive rsity of PFIZER VACCINE 00:00:00 [facility] SARS-COV-2 COVID-19 2021-08-06 Completed Unive rsity of PFIZER VACCINE 00:00:00 [facility] SARS-COV-2 COVID-19 2021-08-06 Completed Unive rsity of PFIZER VACCINE 00:00:00 [facility] SARS-COV-2 COVID-19 2021-08-06 Completed Unive rsity of PFIZER VACCINE 00:00:00 [facility] SARS-COV-2 COVID-19 2021-08-06 Completed Unive rsity of PFIZER VACCINE 00:00:00 [facility] SARS-COV-2 COVID-19 2021-08-06 Completed Unive rsity of PFIZER VACCINE 00:00:00 [facility] SARS-COV-2 COVID-19 2021-08-06 Completed Unive rsity of PFIZER VACCINE 00:00:00 [facility] SARS-COV-2 COVID-19 2021-08-06 Completed Unive rsity of PFIZER VACCINE 00:00:00 [facility] SARS-COV-2 COVID-19 2021-08-06 Completed Unive rsity of PFIZER VACCINE 00:00:00 [facility] SARS-COV-2 COVID-19 2021-08-06 Completed Unive rsity of PFIZER VACCINE 00:00:00 [facility] SARS-COV-2 COVID-19 2021-08-06 Completed Unive rsity of PFIZER VACCINE 00:00:00 [facility] SARS-COV-2 COVID-19 2021-08-06 Completed Unive rsity of PFIZER VACCINE 00:00:00 [facility] SARS-COV-2 COVID-19 2021-08-06 Completed Unive rsity of PFIZER VACCINE 00:00:00 [facility] SARS-COV-2 COVID-19 2021-08-06 Completed Unive rsity of PFIZER VACCINE 00:00:00 [facility] SARS-COV-2 COVID-19 2021-08-06 Completed Unive rsity of PFIZER VACCINE 00:00:00 [facility] SARS-COV-2 COVID-19 2021-08-06 Completed Unive rsity of PFIZER VACCINE 00:00:00 [facility] SARS-COV-2 COVID-19 2021-08-06 Completed Unive rsity of PFIZER VACCINE 00:00:00 [facility] SARS-COV-2 COVID-19 2021-08-06 Completed Unive rsity of PFIZER VACCINE 00:00:00 [facility] SARS-COV-2 COVID-19 2021-08-06 Completed Unive rsity of PFIZER VACCINE 00:00:00 [facility] SARS-COV-2 COVID-19 2021-08-06 Completed Unive rsity of PFIZER VACCINE 00:00:00 [facility] SARS-COV-2 COVID-19 2021-08-06 Completed [facility] PFIZER VACCINE 00:00:00 [facility] SARS-COV-2 COVID-19 2021-08-06 Completed [facility] PFIZER VACCINE 00:00:00 [facility] SARS-COV-2 COVID-19 2021-08-06 Completed [facility] of PFIZER VACCINE 00:00:00 [facility] SARS-COV-2 COVID-19 2021-08-06 Completed [facility] of PFIZER VACCINE 00:00:00 [facility] SARS-COV-2 COVID-19 2021-08-06 Completed [facility] of PFIZER VACCINE 00:00:00 [facility] SARS-COV-2 COVID-19 2021-08-06 Completed [facility] of PFIZER VACCINE 00:00:00 [facility] SARS-COV-2 COVID-19 2021-08-06 Completed [facility] of PFIZER VACCINE 00:00:00 [facility] SARS-COV-2 COVID-19 2021-08-06 Completed [facility] of PFIZER VACCINE 00:00:00 [facility] SARS-COV-2 COVID-19 2021-08-06 Completed [facility] of PFIZER VACCINE 00:00:00 [facility] PFIZER COVID-19 MRNA 2021-07-09 Completed Meth [facility]ist VACCINATION 00:00:00 [facility] PFIZER COVID-19 MRNA 2021-07-09 Completed Meth odist VACCINATION 00:00:00 [facility] PFIZER COVID-19 MRNA 2021-07-09 Completed Meth odist VACCINATION 00:00:00 [facility] PFIZER COVID-19 MRNA 2021-07-09 Completed Meth odist VACCINATION 00:00:00 [facility] PFIZER COVID-19 MRNA 2021-07-09 Completed Meth odist VACCINATION 00:00:00 [facility] PFIZER COVID-19 MRNA 2021-07-09 Completed Meth odist VACCINATION 00:00:00 [facility] PFIZER COVID-19 MRNA 2021-07-09 Completed Meth odist VACCINATION 00:00:00 [facility] PFIZER COVID-19 MRNA 2021-07-09 Completed Meth odist VACCINATION 00:00:00 [facility] PFIZER COVID-19 MRNA 2021-07-09 Completed Meth odist VACCINATION 00:00:00 [facility] PFIZER COVID-19 MRNA 2021-07-09 Completed Meth odist VACCINATION 00:00:00 [facility] PFIZER COVID-19 MRNA 2021-07-09 Completed Meth odist VACCINATION 00:00:00 [facility] SARS-COV-2 COVID-19 2021-07-09 Completed [facility] of PFIZER VACCINE 00:00:00 [facility] Influenza Virus 2021-07-09 Completed [facility] of Vaccine Quad .5 mL 00:00:00 [facility] SARS-COV-2 COVID-19 2021-07-09 Completed [facility] of PFIZER VACCINE 00:00:00 [facility] Influenza Virus 2021-07-09 Completed [facility] of Vaccine Quad .5 mL 00:00:00 [facility] SARS-COV-2 COVID-19 2021-07-09 Completed [facility] of PFIZER VACCINE 00:00:00 [facility] Influenza Virus 2021-07-09 Completed [facility] of Vaccine Quad .5 mL 00:00:00 [facility] 6[facility] SARS-COV-2 COVID-19 2021-07-09 Completed [facility] of PFIZER VACCINE 00:00:00 [facility] Influenza Virus 2021-07-09 Completed [facility] of Vaccine Quad .5 mL 00:00:00 [facility] SARS-COV-2 COVID-19 2021-07-09 Completed [facility] of PFIZER VACCINE 00:00:00 [facility] Influenza Virus 2021-07-09 Completed [facility] Vaccine Quad .5 mL 00:00:00 [facility] 6[facility] SARS-COV-2 COVID-19 2021-07-09 Completed [facility] of PFIZER VACCINE 00:00:00 [facility] Influenza Virus 2021-07-09 Completed [facility] of Vaccine Quad .5 mL 00:00:00 [facility] 6[facility] SARS-COV-2 COVID-19 2021-07-09 Completed [facility] of PFIZER VACCINE 00:00:00 [facility] Influenza Virus 2021-07-09 Completed [facility] of Vaccine Quad .5 mL 00:00:00 [facility] 6[facility] SARS-COV-2 COVID-19 2021-07-09 Completed [facility] of PFIZER VACCINE 00:00:00 [facility] Influenza Virus 2021-07-09 Completed [facility] of Vaccine Quad .5 mL 00:00:00 [facility] 6[facility] SARS-COV-2 COVID-19 2021-07-09 Completed [facility] of PFIZER VACCINE 00:00:00 [facility] Influenza Virus 2021-07-09 Completed [facility] Vaccine Quad .5 mL 00:00:00 [facility] SARS-COV-2 COVID-19 2021-07-09 Completed [facility] of PFIZER VACCINE 00:00:00 [facility] Influenza Virus 2021-07-09 Completed [facility] of Vaccine Quad .5 mL 00:00:00 [facility] 6[facility] SARS-COV-2 COVID-19 2021-07-09 Completed [facility] of PFIZER VACCINE 00:00:00 [facility] Influenza Virus 2021-07-09 Completed [facility] of Vaccine Quad .5 mL 00:00:00 [facility] 6[facility] SARS-COV-2 COVID-19 2021-07-09 Completed [facility] of PFIZER VACCINE 00:00:00 [facility] Influenza Virus 2021-07-09 Completed [facility] of Vaccine Quad .5 mL 00:00:00 [facility] 6[facility] SARS-COV-2 COVID-19 2021-07-09 Completed [facility] of PFIZER VACCINE 00:00:00 [facility] Influenza Virus 2021-07-09 Completed [facility] of Vaccine Quad .5 mL 00:00:00 [facility] 6[facility] SARS-COV-2 COVID-19 2021-07-09 Completed [facility] of PFIZER VACCINE 00:00:00 [facility] Influenza Virus 2021-07-09 Completed [facility] of Vaccine Quad .5 mL 00:00:00 [facility] 6[facility] SARS-COV-2 COVID-19 2021-07-09 Completed [facility] of PFIZER VACCINE 00:00:00 [facility] Influenza Virus 2021-07-09 Completed [facility] of Vaccine Quad .5 mL 00:00:00 [facility] 6[facility] SARS-COV-2 COVID-19 2021-07-09 Completed [facility] of PFIZER VACCINE 00:00:00 [facility] Influenza Virus 2021-07-09 Completed [facility] of Vaccine Quad .5 mL 00:00:00 [facility] 6[facility] SARS-COV-2 COVID-19 2021-07-09 Completed [facility] of PFIZER VACCINE 00:00:00 [facility] Influenza Virus 2021-07-09 Completed [facility] Vaccine Quad .5 mL 00:00:00 [facility] 6[facility] SARS-COV-2 COVID-19 2021-07-09 Completed [facility] of PFIZER VACCINE 00:00:00 [facility] Influenza Virus 2021-07-09 Completed [facility] of Vaccine Quad .5 mL 00:00:00 [facility] 6[facility] SARS-COV-2 COVID-19 2021-07-09 Completed [facility] of PFIZER VACCINE 00:00:00 [facility] Influenza Virus 2021-07-09 Completed [facility] Vaccine Quad .5 mL 00:00:00 [facility] 6[facility] MO [facility] SARS-COV-2 COVID-19 2021-07-09 Completed [facility] of PFIZER VACCINE 00:00:00 [facility] Influenza Virus 2021-07-09 Completed [facility] Vaccine Quad .5 mL 00:00:00 [facility] 6[facility] SARS-COV-2 COVID-19 2021-07-09 Completed [facility] of PFIZER VACCINE 00:00:00 [facility] Influenza Virus 2021-07-09 Completed [facility] of Vaccine Quad .5 mL 00:00:00 [facility] 6[facility] SARS-COV-2 COVID-19 2021-07-09 Completed [facility] of PFIZER VACCINE 00:00:00 [facility] Influenza Virus 2021-07-09 Completed [facility] of Vaccine Quad .5 mL 00:00:00 [facility] 6[facility] SARS-COV-2 COVID-19 2021-07-09 Completed [facility] of PFIZER VACCINE 00:00:00 [facility] Influenza Virus 2021-07-09 Completed [facility] of Vaccine Quad .5 mL 00:00:00 [facility] SARS-COV-2 COVID-19 2021-07-09 Completed [facility] of PFIZER VACCINE 00:00:00 [facility] Influenza Virus 2021-07-09 Completed [facility] of Vaccine Quad .5 mL 00:00:00 [facility] 6[facility] SARS-COV-2 COVID-19 2021-07-09 Completed [facility] of PFIZER VACCINE 00:00:00 [facility] Influenza Virus 2021-07-09 Completed [facility] of Vaccine Quad .5 mL 00:00:00 [facility] 6+ MO Branch SARS-COV-2 COVID-19 2021-07-09 Completed [facility] of PFIZER VACCINE 00:00:00 [facility] Influenza Virus 2021-07-09 Completed [facility] of Vaccine Quad .5 mL 00:00:00 [facility] 6+ MO Branch SARS-COV-2 COVID-19 2021-07-09 Completed [facility] of PFIZER VACCINE 00:00:00 [facility] Influenza Virus 2021-07-09 Completed [facility] of Vaccine Quad .5 mL 00:00:00 [facility] 6+ MO Branch (FLUZONE/FLULAVAL/FL UARIX) SARS-COV-2 COVID-19 2021-07-09 Completed [facility] of PFIZER VACCINE 00:00:00 [facility] Influenza Virus 2021-07-09 Completed [facility] of Vaccine Quad .5 mL 00:00:00 [facility] 6+ MO Branch (FLUZONE/FLULAVAL/FL UARIX) SARS-COV-2 COVID-19 2021-07-09 Completed [facility] of PFIZER VACCINE 00:00:00 [facility] Influenza Virus 2021-07-09 Completed [facility] of Vaccine Quad .5 mL 00:00:00 [facility] 6+ MO Branch (FLUZONE/FLULAVAL/FL UARIX) Tetanus/Diptheria 2016-08-11 Completed Univers ity of 00:00:00 [facility] Varicella 2016-08-11 Completed University of (varivax)(chicken 00:00:00 [facility] pox[facility] Tetanus/Diptheria 2016-08-11 Completed Univers ity of 00:00:00 [facility] Varicella 2016-08-11 Completed [facility] of (varivax)(chicken 00:00:00 [facility] Tetanus/Diptheria 2016-08-11 Completed Univers ity of 00:00:00 [facility] Varicella 2016-08-11 Completed University of (varivax)(chicken 00:00:00 [facility] Tetanus/Diptheria 2016-08-11 Completed Univers ity of 00:00:00 [facility] Varicella 2016-08-11 Completed [facility] of (varivax)(chicken 00:00:00 [facility] Tetanus/Diptheria 2016-08-11 Completed Univers ity of 00:00:00 [facility] Varicella 2016-08-11 Completed University of (varivax)(chicken 00:00:00 [facility] Tetanus/Diptheria 2016-08-11 Completed Univers ity of 00:00:00 [facility] Varicella 2016-08-11 Completed [facility] of (varivax)(chicken 00:00:00 [facility] Tetanus/Diptheria 2016-08-11 Completed Univers ity of 00:00:00 [facility] Varicella 2016-08-11 Completed [facility] (varivax)(chicken 00:00:00 [facility] Tetanus/Diptheria 2016-08-11 Completed Univers ity of 00:00:00 [facility] Varicella 2016-08-11 Completed University of (varivax)(chicken 00:00:00 [facility] Tetanus/Diptheria 2016-08-11 Completed Univers ity of 00:00:00 [facility] Varicella 2016-08-11 Completed [facility] of (varivax)(chicken 00:00:00 [facility] Tetanus/Diptheria 2016-08-11 Completed Univers ity of 00:00:00 [facility] Varicella 2016-08-11 Completed [facility] of (varivax)(chicken 00:00:00 [facility] Tetanus/Diptheria 2016-08-11 Completed Univers ity of 00:00:00 [facility] Varicella 2016-08-11 Completed [facility] of (varivax)(chicken 00:00:00 [facility] Tetanus/Diptheria 2016-08-11 Completed Univers ity of 00:00:00 [facility] Varicella 2016-08-11 Completed [facility] of (varivax)(chicken 00:00:00 [facility] Tetanus/Diptheria 2016-08-11 Completed Univers ity of 00:00:00 [facility] Varicella 2016-08-11 Completed [facility] of (varivax)(chicken 00:00:00 [facility] Tetanus/Diptheria 2016-08-11 Completed Univers ity of 00:00:00 [facility] Varicella 2016-08-11 Completed [facility] of (varivax)(chicken 00:00:00 [facility] Tetanus/Diptheria 2016-08-11 Completed Univers ity of 00:00:00 [facility] Varicella 2016-08-11 Completed [facility] of (varivax)(chicken 00:00:00 [facility] Tetanus/Diptheria 2016-08-11 Completed Univers ity of 00:00:00 [facility] Varicella 2016-08-11 Completed [facility] of (varivax)(chicken 00:00:00 [facility] Tetanus/Diptheria 2016-08-11 Completed Univers ity of 00:00:00 [facility] Varicella 2016-08-11 Completed [facility] of (varivax)(chicken 00:00:00 [facility] Tetanus/Diptheria 2016-08-11 Completed Univers ity of 00:00:00 [facility] Varicella 2016-08-11 Completed [facility] of (varivax)(chicken 00:00:00 [facility] Tetanus/Diptheria 2016-08-11 Completed Univers ity of 00:00:00 [facility] Varicella 2016-08-11 Completed [facility] of (varivax)(chicken 00:00:00 [facility] Tetanus/Diptheria 2016-08-11 Completed Univers ity of 00:00:00 [facility] Varicella 2016-08-11 Completed [facility] of (varivax)(chicken 00:00:00 [facility] Tetanus/Diptheria 2016-08-11 Completed Univers ity of 00:00:00 [facility] Varicella 2016-08-11 Completed [facility] of (varivax)(chicken 00:00:00 [facility] Tetanus/Diptheria 2016-08-11 Completed Univers ity of 00:00:00 [facility] Varicella 2016-08-11 Completed [facility] of (varivax)(chicken 00:00:00 [facility] Tetanus/Diptheria 2016-08-11 Completed Univers ity of 00:00:00 [facility] Varicella 2016-08-11 Completed [facility] of (varivax)(chicken 00:00:00 [facility] Tetanus/Diptheria 2016-08-11 Completed Univers [facility]y of 00:00:00 [facility] Varicella 2016-08-11 Completed [facility] of (varivax)(chicken 00:00:00 [facility] Tetanus/Diptheria 2016-08-11 Completed Univers ity of 00:00:00 [facility] Varicella 2016-08-11 Completed [facility] of (varivax)(chicken 00:00:00 [facility] p[facility] Tetanus/Diptheria 2016-08-11 Completed Univers ity of 00:00:00 [facility] Varicella 2016-08-11 Completed [facility] of (varivax)(chicken 00:00:00 [facility] Tetanus/Diptheria 2016-08-11 Completed Univers ity of 00:00:00 [facility] Varicella 2016-08-11 Completed [facility] of (varivax)(chicken 00:00:00 [facility] Tetanus/Diptheria 2016-08-11 Completed Univers ity of 00:00:00 [facility] Varicella 2016-08-11 Completed [facility] of (varivax)(chicken 00:00:00 [facility] Tetanus/Diptheria 2016-08-11 Completed Univers ity of 00:00:00 [facility] Varicella 2016-08-11 Completed University of (varivax)(chicken [...] University of 00:00:00 [facility] HEPATITIS A 2008-09-27 Completed University of 00:00:00 [facility] HPV 2008-09-27 Completed University of 00:00:00 [facility] HEPATITIS A 2008-09-27 Completed University of 00:00:00 [facility] HPV 2008-09-27 Completed University of 00:00:00 [facility] HEPATITIS A 2008-09-27 Completed University of 00:00:00 [facility] HPV 2008-09-27 Completed University of 00:00:00 [facility] HEPATITIS A 2008-09-27 Completed University of 00:00:00 [facility] HPV 2008-09-27 Completed University of 00:00:00 [facility] HEPATITIS A 2008-09-27 Completed University of 00:00:00 [facility] HPV 2008-09-27 Completed University of 00:00:00 [facility] HEPATITIS A 2008-09-27 Completed University of 00:00:00 [facility] HPV 2008-09-27 Completed University of 00:00:00 [facility] HEPATITIS A 2008-09-27 Completed [facility] of 00:00:00 [facility] HPV 2008-09-27 Completed University of 00:00:00 [facility] HEPATITIS A 2008-09-27 Completed University of 00:00:00 [facility] HPV 2008-09-27 Completed University of 00:00:00 [facility] HEPATITIS A 2008-09-27 Completed University of 00:00:00 [facility] HPV 2008-09-27 Completed University of 00:00:00 [facility] HEPATITIS A 2008-09-27 Completed University of 00:00:00 [facility] HPV 2008-09-27 Completed University of 00:00:00 [facility] HEPATITIS A 2008-09-27 Completed University [...] Branch HPV 2008-03-06 Completed University of 00:00:00 [facility] HEPATITIS A 2008-03-06 Completed University of 00:00:00 [facility] HPV 2008-03-06 Completed University of 00:00:00 [facility] HEPATITIS A 2008-03-06 Completed University of 00:00:00 [facility] HPV 2008-03-06 Completed University of 00:00:00 [facility] HEPATITIS A 2008-03-06 Completed University of 00:00:00 [facility] HPV 2008-03-06 Completed University of 00:00:00 [facility] Meningococcal 2007-12-29 Completed [facility] Polysaccharide 00:00:00 [facility] (groups A, C, Y and Branc h W-135) conjugate vaccine (MCV4P) TDAP 2007-12-29 Completed University of 00:00:00 [facility] Meningococcal 2007-12-29 Completed [facility] Polysaccharide 00:00:00 [facility] (groups A, C, Y and Branc h W-135) conjugate vaccine (MCV4P) TDAP 2007-12-29 Completed University of 00:00:00 [facility] Meningococcal 2007-12-29 Completed [facility] Polysaccharide 00:00:00 [facility] (groups A, C, Y and Branc h W-135) conjugate vaccine (MCV4P) TDAP 2007-12-29 Completed University of 00:00:00 [facility] Meningococcal 2007-12-29 Completed [facility] Polysaccharide 00:00:00 [facility] (groups A, C, Y and Branc h W-135) conjugate vaccine (MCV4P) TDAP 2007-12-29 Completed University of 00:00:00 [facility] Meningococcal 2007-12-29 Completed University of Polysaccharide 00:00:00 [facility] (groups A, C, Y and Branc h W-135) conjugate vaccine (MCV4P) TDAP 2007-12-29 Completed University of 00:00:00 [facility] Meningococcal 2007-12-29 Completed [facility] of Polysaccharide 00:00:00 [facility] (groups A, C, Y and Branc h W-135) conjugate vaccine (MCV4P) TDAP 2007-12-29 Completed University of 00:00:00 [facility] Meningococcal 2007-12-29 Completed [facility] of Polysaccharide 00:00:00 [facility] (groups A, C, Y and Branc h W-135) conjugate vaccine (MCV4P) TDAP 2007-12-29 Completed University of 00:00:00 [facility] Meningococcal 2007-12-29 Completed [facility] Polysaccharide 00:00:00 [facility] (groups A, C, Y and Branc h W-135) conjugate vaccine (MCV4P) TDAP 2007-12-29 Completed [facility] of 00:00:00 [facility] Meningococcal 2007-12-29 Completed [facility] Polysaccharide 00:00:00 [facility] (groups A, C, Y and Branc h W-135) conjugate vaccine (MCV4P) TDAP 2007-12-29 Completed [facility] of 00:00:00 [facility] Meningococcal 2007-12-29 Completed [facility] Polysaccharide 00:00:00 [facility] (groups A, C, Y and Branc h W-135) conjugate vaccine (MCV4P) TDAP 2007-12-29 Completed [facility] of 00:00:00 [facility] Meningococcal 2007-12-29 Completed [facility] Polysaccharide 00:00:00 [place] [facility] (groups A, C, Y and Branc h W-135) conjugate vaccine (MCV4P) TDAP 2007-12-29 Completed [facility] of 00:00:00 [facility] Meningococcal 2007-12-29 Completed [facility] of Polysaccharide 00:00:00 [place] [facility] (groups A, C, Y and Branc h W-135) conjugate vaccine (MCV4P) TDAP 2007-12-29 Completed University of 00:00:00 [facility] Meningococcal 2007-12-29 Completed [facility] of Polysaccharide 00:00:00 [facility] (groups A, C, Y and Branc h W-135) conjugate vaccine (MCV4P) TDAP 2007-12-29 Completed [facility] of 00:00:00 [facility] Meningococcal 2007-12-29 Completed [facility] Polysaccharide 00:00:00 [facility] (groups A, C, Y and Branc h W-135) conjugate vaccine (MCV4P) TDAP 2007-12-29 Completed [facility] of 00:00:00 [facility] Meningococcal 2007-12-29 Completed [facility] of Polysaccharide 00:00:00 [place] [facility] (groups A, C, Y and Branc h W-135) conjugate vaccine (MCV4P) TDAP 2007-12-29 Completed [facility] of 00:00:00 [facility] Meningococcal 2007-12-29 Completed [facility] of Polysaccharide 00:00:00 [place] [facility] (groups A, C, Y and Branc h W-135) conjugate vaccine (MCV4P) TDAP 2007-12-29 Completed University of 00:00:00 [facility] Meningococcal 2007-12-29 Completed [facility] Polysaccharide 00:00:00 [place] [facility] (groups A, C, Y and Branc h W-135) conjugate vaccine (MCV4P) TDAP 2007-12-29 Completed [facility] of 00:00:00 [facility] Meningococcal 2007-12-29 Completed [facility] of Polysaccharide 00:00:00 [place] [facility] (groups A, C, Y and Branc h W-135) conjugate vaccine (MCV4P) TDAP 2007-12-29 Completed [facility] of 00:00:00 [facility] Meningococcal 2007-12-29 Completed [facility] Polysaccharide 00:00:00 [place] [facility] (groups A, C, Y and Branc h W-135) conjugate vaccine (MCV4P) TDAP 2007-12-29 Completed [facility] of 00:00:00 [facility] Meningococcal 2007-12-29 Completed [facility] of Polysaccharide 00:00:00 [place] [facility] (groups A, C, Y and Branc h W-135) conjugate vaccine (MCV4P) TDAP 2007-12-29 Completed [facility] of 00:00:00 [facility] Meningococcal 2007-12-29 Completed [facility] Polysaccharide 00:00:00 [place] [facility] (groups A, C, Y and Branc h W-135) conjugate vaccine (MCV4P) TDAP 2007-12-29 Completed [facility] of 00:00:00 [facility] Meningococcal 2007-12-29 Completed [facility] of Polysaccharide 00:00:00 [place] [facility] (groups A, C, Y and Branc h W-135) conjugate vaccine (MCV4P) TDAP 2007-12-29 Completed University of 00:00:00 [facility] Meningococcal 2007-12-29 Completed [facility] of Polysaccharide 00:00:00 [place] [facility] (groups A, C, Y and Branc h W-135) conjugate vaccine (MCV4P) TDAP 2007-12-29 Completed [facility] of 00:00:00 [facility] Meningococcal 2007-12-29 Completed [facility] of Polysaccharide 00:00:00 [place] [facility] (groups A, C, Y and Branc h W-135) conjugate vaccine (MCV4P) TDAP 2007-12-29 Completed [facility] of 00:00:00 [facility] Meningococcal 2007-12-29 Completed [facility] of Polysaccharide 00:00:00 [place] [facility] (groups A, C, Y and Branc h W-135) conjugate vaccine (MCV4P) TDAP 2007-12-29 Completed [facility] of 00:00:00 [facility] Meningococcal 2007-12-29 Completed [facility] of Polysaccharide 00:00:00 [place] [facility] (groups A, C, Y and Branc h W-135) conjugate vaccine (MCV4P) TDAP 2007-12-29 Completed [facility] of 00:00:00 [facility] Meningococcal 2007-12-29 Completed [facility] Polysaccharide 00:00:00 [place] [facility] (groups A, C, Y and Branc h W-135) conjugate vaccine (MCV4P) TDAP 2007-12-29 Completed [facility] of 00:00:00 [facility] Meningococcal 2007-12-29 Completed [facility] Polysaccharide 00:00:00 [place] [facility] (groups A, C, Y and Branc h W-135) conjugate vaccine (MCV4P) TDAP 2007-12-29 Completed [facility] of 00:00:00 [facility] Meningococcal 2007-12-29 Completed [facility] Polysaccharide 00:00:00 [place] [facility] (groups A, C, Y and Branc h W-135) conjugate vaccine (MCV4P) TDAP 2007-12-29 Completed [facility] of 00:00:00 [facility] DTaP, Unspecified 1998-01-03 Completed Univers [facility]y of Formulation 00:00:00 [facility] Hep B, Adol or Pedi 1998-01-03 Completed Unive rsity of Dosage 00:00:00 [facility] Poliovirus, Live, 1998-01-03 Completed Univers ity of Oral, Trivalent 00:00:00 [facility] DTaP, Unspecified 1998-01-03 Completed Univers ity of Formulation 00:00:00 [facility] Hep B, Adol or Pedi 1998-01-03 Completed Unive rsity of Dosage 00:00:00 [facility] Poliovirus, Live, 1998-01-03 Completed Univers ity of Oral, Trivalent 00:00:00 [facility] DTaP, Unspecified 1998-01-03 Completed [facility] Formulation 00:00:00 [facility] Hep B, Adol or Pedi 1998-01-03 Completed [facility] of Dosage 00:00:00 [facility] Poliovirus, Live, 1998-01-03 Completed [facility] Oral, Trivalent 00:00:00 [facility] DTaP, Unspecified 1998-01-03 Completed [facility] Formulation 00:00:00 [facility] Hep B, Adol or Pedi 1998-01-03 Completed [facility] of Dosage 00:00:00 [facility] Poliovirus, Live, 1998-01-03 Completed [facility] Oral, Trivalent 00:00:00 [facility] DTaP, Unspecified 1998-01-03 Completed [facility] Formulation 00:00:00 [facility] Hep B, Adol or Pedi 1998-01-03 Completed [facility] of Dosage 00:00:00 [facility] Poliovirus, Live, 1998-01-03 Completed [facility] Oral, Trivalent 00:00:00 [facility] DTaP, Unspecified 1998-01-03 Completed [facility] Formulation 00:00:00 [facility] Hep B, Adol or Pedi 1998-01-03 Completed [facility] of Dosage 00:00:00 [facility] Poliovirus, Live, 1998-01-03 Completed [facility] Oral, Trivalent 00:00:00 [facility] DTaP, Unspecified 1998-01-03 Completed [facility] Formulation 00:00:00 [facility] Hep B, Adol or Pedi 1998-01-03 Completed [facility] of Dosage 00:00:00 [facility] Poliovirus, Live, 1998-01-03 Completed [facility] of Oral, Trivalent 00:00:00 [facility] DTaP, Unspecified 1998-01-03 Completed [facility] Formulation 00:00:00 [facility] Hep B, Adol or Pedi 1998-01-03 Completed [facility] of Dosage 00:00:00 [facility] Poliovirus, Live, 1998-01-03 Completed [facility] Oral, Trivalent 00:00:00 [facility] DTaP, Unspecified 1998-01-03 Completed [facility] Formulation 00:00:00 [facility] Hep B, Adol or Pedi 1998-01-03 Completed [facility] Dosage 00:00:00 [facility] Poliovirus, Live, 1998-01-03 Completed [facility] of Oral, Trivalent 00:00:00 [facility] DTaP, Unspecified 1998-01-03 Completed [facility] Formulation 00:00:00 [facility] Hep B, Adol or Pedi 1998-01-03 Completed [facility] of Dosage 00:00:00 [facility] Poliovirus, Live, 1998-01-03 Completed [facility] Oral, Trivalent 00:00:00 [facility] DTaP, Unspecified 1998-01-03 Completed [facility] Formulation 00:00:00 [facility] Hep B, Adol or Pedi 1998-01-03 Completed [facility] of Dosage 00:00:00 [facility] Poliovirus, Live, 1998-01-03 Completed [facility] of Oral, Trivalent 00:00:00 [facility] DTaP, Unspecified 1998-01-03 Completed [facility] Formulation 00:00:00 [facility] Hep B, Adol or Pedi 1998-01-03 Completed [facility] of Dosage 00:00:00 [facility] Poliovirus, Live, 1998-01-03 Completed [facility] of Oral, Trivalent 00:00:00 [facility] DTaP, Unspecified 1998-01-03 Completed [facility] Formulation 00:00:00 [facility] Hep B, Adol or Pedi 1998-01-03 Completed [facility] of Dosage 00:00:00 [facility] Poliovirus, Live, 1998-01-03 Completed [facility] of Oral, Trivalent 00:00:00 [facility] DTaP, Unspecified 1998-01-03 Completed [facility] Formulation 00:00:00 [facility] Hep B, Adol or Pedi 1998-01-03 Completed [facility] of Dosage 00:00:00 [facility] Poliovirus, Live, 1998-01-03 Completed [facility] of Oral, Trivalent 00:00:00 [facility] DTaP, Unspecified 1998-01-03 Completed [facility] Formulation 00:00:00 [facility] Hep B, Adol or Pedi 1998-01-03 Completed [facility] of Dosage 00:00:00 [facility] Poliovirus, Live, 1998-01-03 Completed [facility] of Oral, Trivalent 00:00:00 [facility] DTaP, Unspecified 1998-01-03 Completed [facility] Formulation 00:00:00 [facility] Hep B, Adol or Pedi 1998-01-03 Completed [facility] of Dosage 00:00:00 [facility] Poliovirus, Live, 1998-01-03 Completed [facility] of Oral, Trivalent 00:00:00 [facility] DTaP, Unspecified 1998-01-03 Completed [facility] Formulation 00:00:00 [facility] Hep B, Adol or Pedi 1998-01-03 Completed [facility] of Dosage 00:00:00 [facility] Poliovirus, Live, 1998-01-03 Completed [facility] of Oral, Trivalent 00:00:00 [facility] DTaP, Unspecified 1998-01-03 Completed [facility] Formulation 00:00:00 [facility] Hep B, Adol or Pedi 1998-01-03 Completed [facility] of Dosage 00:00:00 [facility] Poliovirus, Live, 1998-01-03 Completed [facility] Oral, Trivalent 00:00:00 [facility] DTaP, Unspecified 1998-01-03 Completed [facility] Formulation 00:00:00 [facility] Hep B, Adol or Pedi 1998-01-03 Completed [facility] of Dosage 00:00:00 [facility] Poliovirus, Live, 1998-01-03 Completed [facility] Oral, Trivalent 00:00:00 [facility] DTaP, Unspecified 1998-01-03 Completed [facility] Formulation 00:00:00 [facility] Hep B, Adol or Pedi 1998-01-03 Completed [facility] of Dosage 00:00:00 [facility] Poliovirus, Live, 1998-01-03 Completed [facility] of Oral, Trivalent 00:00:00 [facility] DTaP, Unspecified 1998-01-03 Completed [facility] Formulation 00:00:00 [facility] Hep B, Adol or Pedi 1998-01-03 Completed [facility] of Dosage 00:00:00 [facility] Poliovirus, Live, 1998-01-03 Completed [facility] Oral, Trivalent 00:00:00 [facility] DTaP, Unspecified 1998-01-03 Completed [facility] Formulation 00:00:00 [facility] Hep B, Adol or Pedi 1998-01-03 Completed [facility] of Dosage 00:00:00 [facility] Poliovirus, Live, 1998-01-03 Completed [facility] of Oral, Trivalent 00:00:00 [facility] DTaP, Unspecified 1998-01-03 Completed [facility] Formulation 00:00:00 [facility] Hep B, Adol or Pedi 1998-01-03 Completed [facility] of Dosage 00:00:00 [facility] Poliovirus, Live, 1998-01-03 Completed [facility] of Oral, Trivalent 00:00:00 [facility] DTaP, Unspecified 1998-01-03 Completed [facility] Formulation 00:00:00 [facility] Hep B, Adol or Pedi 1998-01-03 Completed [facility] of Dosage 00:00:00 [facility] Poliovirus, Live, 1998-01-03 Completed [facility] of Oral, Trivalent 00:00:00 [facility] DTaP, Unspecified 1998-01-03 Completed [facility] Formulation 00:00:00 [facility] Hep B, Adol or Pedi 1998-01-03 Completed [facility] of Dosage 00:00:00 [facility] Poliovirus, Live, 1998-01-03 Completed [facility] of Oral, Trivalent 00:00:00 [facility] DTaP, Unspecified 1998-01-03 Completed [facility] Formulation 00:00:00 [facility] Hep B, Adol or Pedi 1998-01-03 Completed [facility] of Dosage 00:00:00 [facility] Poliovirus, Live, 1998-01-03 Completed [facility] of Oral, Trivalent 00:00:00 [facility] DTaP, Unspecified 1998-01-03 Completed [facility] Formulation 00:00:00 [facility] Hep B, Adol or Pedi 1998-01-03 Completed [facility] of Dosage 00:00:00 [facility] Poliovirus, Live, 1998-01-03 Completed [facility] of Oral, Trivalent 00:00:00 [facility] DTaP, Unspecified 1998-01-03 Completed [facility] Formulation 00:00:00 [facility] Hep B, Adol or Pedi 1998-01-03 Completed [facility]ive rsity of Dosage 00:00:00 [facility] Poliovirus, Live, 1998-01-03 Completed [facility] Oral, Trivalent 00:00:00 [facility] DTaP, Unspecified 1998-01-03 Completed [facility] Formulation 00:00:00 [facility] Hep B, Adol or Pedi 1998-01-03 Completed [facility]ive rs[facility] of Dosage 00:00:00 [facility] Poliovirus, Live, 1998-01-03 Completed [facility] of Oral, Trivalent 00:00:00 [facility] Hep B, Unspecified 1997-03-28 Completed [facility]iver [facility] of Formulation 00:00:00 [facility] Hep B, Adol or Pedi 1997-03-28 Completed [facility]ive [facility] of Dosage 00:00:00 [facility] MMR 1997-03-28 Completed [facility] 00:00:00 [facility] Hep B, Unspecified 1997-03-28 Completed [facility]ity of Formulation 00:00:00 [facility] Hep B, Adol or Pedi 1997-03-28 Completed [facility]ive rsity of Dosage 00:00:00 [facility] MMR 1997-03-28 Completed [facility] of 00:00:00 [facility] Hep B, Unspecified 1997-03-28 Completed [facility]iver [facility]ity of Formulation 00:00:00 [facility] Hep B, Adol or Pedi 1997-03-28 Completed [facility]ive rsity of Dosage 00:00:00 [facility] MMR 1997-03-28 Completed [facility] of 00:00:00 [facility] Hep B, Unspecified 1997-03-28 Completed [facility]iver [facility]ity of Formulation 00:00:00 [facility] Hep B, Adol or Pedi 1997-03-28 Completed [facility]ive rsity of Dosage 00:00:00 [facility] MMR 1997-03-28 Completed [facility] of 00:00:00 [facility] Hep B, Unspecified 1997-03-28 Completed [facility]iver [facility]ity of Formulation 00:00:00 [facility] Hep B, Adol or Pedi 1997-03-28 Completed [facility]ive rsity of Dosage 00:00:00 [facility] MMR 1997-03-28 Completed University of [...] 1997-03-28 Completed [facility] of Dosage 00:00:00 [facility] MMR 1997-03-28 Completed [facility] of 00:00:00 [facility] Hep B, Unspecified 1997-03-28 Completed [facility]iver [facility]ity of Formulation 00:00:00 [facility] Hep B, Adol or Pedi 1997-03-28 Completed [facility]ive rsity of Dosage 00:00:00 [facility] MMR 1997-03-28 Completed [facility] of 00:00:00 [facility] Hep B, Unspecified 1997-03-28 Completed [facility]iver [facility]ity of Formulation 00:00:00 [facility] Hep B, Adol or Pedi 1997-03-28 Completed [facility]ive rsity of Dosage 00:00:00 [facility] MMR 1997-03-28 Completed University of 00:00:00 [facility] DTP 1994-05-19 Completed University of 00:00:00 [facility] Hib-HbOC 1994-05-19 Completed University of 00:00:00 [facility] MMR 1994-05-19 Completed [facility] of 00:00:00 [facility] Poliovirus, Live, 1994-05-19 Completed [facility] of Oral, Trivalent 00:00:00 [facility] DTP 1994-05-19 Completed University of 00:00:00 [facility] Hib-HbOC 1994-05-19 Completed University of 00:00:00 [facility] MMR 1994-05-19 Completed [facility] of 00:00:00 [facility] Poliovirus, Live, 1994-05-19 Completed [facility] of Oral, Trivalent 00:00:00 [facility] DTP 1994-05-19 Completed University of 00:00:00 [facility] Hib-HbOC 1994-05-19 Completed University of 00:00:00 [facility] MMR 1994-05-19 Completed University of 00:00:00 [facility] Poliovirus, Live, 1994-05-19 Completed [facility] of Oral, Trivalent 00:00:00 [facility] DTP 1994-05-19 Completed University of 00:00:00 [facility] Hib-HbOC 1994-05-19 Completed University of 00:00:00 [facility] MMR 1994-05-19 Completed [facility] of 00:00:00 [facility] Poliovirus, Live, 1994-05-19 Completed [facility] of Oral, Trivalent 00:00:00 [facility] 1994-05-19 Completed University of 00:00:00 [facility] Hib-HbOC 1994-05-19 Completed University of 00:00:00 [facility] MMR 1994-05-19 Completed University of 00:00:00 [facility] Poliovirus, Live, 1994-05-19 Completed [facility] of Oral, Trivalent 00:00:00 [facility] 1994-05-19 Completed University of 00:00:00 [facility] Hib-HbOC 1994-05-19 Completed University of 00:00:00 [facility] MMR 1994-05-19 Completed University of 00:00:00 [facility] Poliovirus, Live, 1994-05-19 Completed [facility] of Oral, Trivalent 00:00:00 [facility] 1994-05-19 Completed [facility] of 00:00:00 [facility] Hib-HbOC 1994-05-19 Completed University of 00:00:00 [facility] 1994-05-19 Completed University of 00:00:00 [facility] Poliovirus, Live, 1994-05-19 Completed [facility] of Oral, Trivalent 00:00:00 [facility] 1994-05-19 Completed University of 00:00:00 [facility] Hib-HbOC 1994-05-19 Completed University of 00:00:00 [facility] MMR 1994-05-19 Completed University of 00:00:00 [facility] Poliovirus, Live, 1994-05-19 Completed [facility] of Oral, Trivalent 00:00:00 [facility] 1994-05-19 Completed University of 00:00:00 [facility] Hib-HbOC 1994-05-19 Completed [facility] of 00:00:00 [facility] MMR 1994-05-19 Completed University of 00:00:00 [facility] Poliovirus, Live, 1994-05-19 Completed [facility] of Oral, Trivalent 00:00:00 [facility] 1994-05-19 Completed University of 00:00:00 [facility] Hib-HbOC 1994-05-19 Completed University of 00:00:00 [facility] MMR 1994-05-19 Completed University of 00:00:00 [facility] Poliovirus, Live, 1994-05-19 Completed [facility] of Oral, Trivalent 00:00:00 [facility] 1994-05-19 Completed University of 00:00:00 [facility] Hib-HbOC 1994-05-19 Completed University of 00:00:00 [facility] MMR 1994-05-19 Completed University of 00:00:00 [facility] Poliovirus, Live, 1994-05-19 Completed [facility]y of Oral, Trivalent 00:00:00 [facility] 1994-05-19 Completed University of 00:00:00 [facility] Hib-HbOC 1994-05-19 Completed University of 00:00:00 [facility] MMR 1994-05-19 Completed [facility] of 00:00:00 [facility] Poliovirus, Live, 1994-05-19 Completed [facility]y of Oral, Trivalent 00:00:00 [facility] 1994-05-19 Completed University of 00:00:00 [facility] Hib-HbOC 1994-05-19 Completed [facility] of 00:00:00 [facility] MMR 1994-05-19 Completed [facility] of 00:00:00 [facility] Poliovirus, Live, 1994-05-19 Completed [facility]y of Oral, Trivalent 00:00:00 [facility] 1994-05-19 Completed University of 00:00:00 [facility] Hib-HbOC 1994-05-19 Completed [facility] of 00:00:00 [facility] MMR 1994-05-19 Completed [facility] of 00:00:00 [facility] Poliovirus, Live, 1994-05-19 Completed [facility]y of Oral, Trivalent 00:00:00 [facility] 1994-05-19 Completed University of 00:00:00 [facility] Hib-HbOC 1994-05-19 Completed [facility] of 00:00:00 [facility] MMR 1994-05-19 Completed [facility] of 00:00:00 [facility] Poliovirus, Live, 1994-05-19 Completed [facility]y of Oral, Trivalent 00:00:00 [facility] 1994-05-19 Completed University of 00:00:00 [facility] Hib-HbOC 1994-05-19 Completed [facility] of 00:00:00 [facility] MMR 1994-05-19 Completed [facility] of 00:00:00 [facility] Poliovirus, Live, 1994-05-19 Completed [facility]y of Oral, Trivalent 00:00:00 [facility] 1994-05-19 Completed [facility] of 00:00:00 [facility] Hib-HbOC 1994-05-19 Completed University of 00:00:00 [facility] MMR 1994-05-19 Completed [facility] of 00:00:00 [facility] Poliovirus, Live, 1994-05-19 Completed Univers ity of Oral, Trivalent 00:00:00 [facility] DT 1994-05-19 Completed University of 00:00:00 [facility] Hib-HbOC 1994-05-19 Completed University of 00:00:00 [facility] MMR 1994-05-19 Completed University of 00:00:00 [facility] Poliovirus, Live, 1994-05-19 Completed [facility] ity of Oral, Trivalent 00:00:00 [facility] 1994-05-19 Completed University of 00:00:00 [facility] Hib-HbOC 1994-05-19 Completed [facility] of 00:00:00 [facility] MMR 1994-05-19 Completed University of 00:00:00 [facility] Poliovirus, Live, 1994-05-19 Completed [facility] ity of Oral, Trivalent 00:00:00 [facility] 1994-05-19 Completed University of 00:00:00 [facility] Hib-HbOC 1994-05-19 Completed University of 00:00:00 [facility] MMR 1994-05-19 Completed [facility] of 00:00:00 [facility] Poliovirus, Live, 1994-05-19 Completed [facility] ity of Oral, Trivalent 00:00:00 [facility] 1994-05-19 Completed University of 00:00:00 [facility] Hib-HbOC 1994-05-19 Completed [facility] of 00:00:00 [facility] MMR 1994-05-19 Completed [facility] of 00:00:00 [facility] Poliovirus, Live, 1994-05-19 Completed Univers [facility]y of Oral, Trivalent 00:00:00 [facility] 1994-05-19 Completed University of 00:00:00 [facility] Hib-HbOC 1994-05-19 Completed [facility] of 00:00:00 [facility] MMR 1994-05-19 Completed [facility] of 00:00:00 [facility] Poliovirus, Live, 1994-05-19 Completed Univers ity of Oral, Trivalent 00:00:00 [facility] DT 1994-05-19 Completed University of 00:00:00 [facility] Hib-HbOC 1994-05-19 Completed [facility] of 00:00:00 [facility] MMR 1994-05-19 Completed [facility] of 00:00:00 [facility] Poliovirus, Live, 1994-05-19 Completed Univers ity of Oral, Trivalent 00:00:00 [facility] DT 1994-05-19 Completed [facility] of 00:00:00 [facility] Hib-HbOC 1994-05-19 Completed [facility] of 00:00:00 [facility] MMR 1994-05-19 Completed [facility] of 00:00:00 [facility] Poliovirus, Live, 1994-05-19 Completed Univers ity of Oral, Trivalent 00:00:00 [facility] 1994-05-19 Completed [facility] of 00:00:00 [facility] Hib-HbOC 1994-05-19 Completed [facility] of 00:00:00 [facility] MMR 1994-05-19 Completed [facility] of 00:00:00 [facility] Poliovirus, Live, 1994-05-19 Completed [facility] ity of Oral, Trivalent 00:00:00 [facility] 1994-05-19 Completed [facility] of 00:00:00 [facility] Hib-HbOC 1994-05-19 Completed [facility] of 00:00:00 [facility] MMR 1994-05-19 Completed [facility] of 00:00:00 [facility] Poliovirus, Live, 1994-05-19 Completed [facility]y of Oral, Trivalent 00:00:00 [facility] DT 1994-05-19 Completed [facility] of 00:00:00 [facility] Hib-HbOC 1994-05-19 Completed [facility] of 00:00:00 [facility] MMR 1994-05-19 Completed [facility] of 00:00:00 [facility] Poliovirus, Live, 1994-05-19 Completed [facility]y of Oral, Trivalent 00:00:00 [facility] 1994-05-19 Completed [facility] of 00:00:00 [facility] Hib-HbOC 1994-05-19 Completed [facility] of 00:00:00 [facility] MMR 1994-05-19 Completed [facility] of 00:00:00 [facility] Poliovirus, Live, 1994-05-19 Completed [facility] ity of Oral, Trivalent 00:00:00 [facility] DTP 1994-05-19 Completed [facility] of 00:00:00 [facility] Hib-HbOC 1994-05-19 Completed [facility] of 00:00:00 [facility] MMR 1994-05-19 Completed [facility] of 00:00:00 [facility] Poliovirus, Live, 1994-05-19 Completed [facility] Influenza B 00:00:00 [facility] 1994-05-09 Completed [facility] of Influenza B 00:00:00 [facility] 1994-05-09 Completed [facility] of Influenza B 00:00:00 [facility] 1994-05-09 Completed [facility] of Influenza B 00:00:00 [facility] 1994-05-09 Completed [facility] of Influenza B 00:00:00 [facility] 1994-05-09 Completed [facility] of Influenza B 00:00:00 [facility] 1994-05-09 Completed [facility] of Influenza B 00:00:00 [facility] 1994-05-09 Completed [facility] of Influenza B 00:00:00 [facility] 1994-05-09 Completed [facility] of Influenza B 00:00:00 [facility] 1994-05-09 Completed [facility] of Influenza B 00:00:00 [facility] 1994-05-09 Completed [facility] of Influenza B 00:00:00 [facility] 1994-05-09 Completed [facility] of Influenza B 00:00:00 [facility] 1994-05-09 Completed [facility] of Influenza B 00:00:00 [facility] 1994-05-09 Completed [facility] of Influenza B 00:00:00 [facility] 1994-05-09 Completed [facility] of Influenza B 00:00:00 [facility] 1994-05-09 Completed [facility] of Influenza B 00:00:00 [facility] 1994-05-09 Completed [facility] of Influenza B 00:00:00 [facility] 1994-05-09 Completed [facility] of Influenza B 00:00:00 [facility] 1994-05-09 Completed [facility] Influenza B [facility]:00[facility] Influenza B 00:00:00 [facility] Influenza B 00:00:00 [facility] 1994-05-09 Completed [facility] Influenza B 00:00:00 [facility] Influenza B 00:00:00 [facility] Com[facility] Influenza B 00:00:00 [facility] 1994-05-09 Completed [facility] of Influenza B 00:00:00 [facility] 1994-05-09 Completed [facility] of Influenza B 00:00:00 [facility] 1994-05-09 Completed [facility] of Influenza B 00:00:00 [facility] 1994-05-09 Completed [facility] of Influenza B 00:00:00 [facility] Hep B, Unspecified 1993-04-29 Completed Univer [facility]ity of Formulation 00:00:00 [facility] Hep B, Adol or Pedi 1993-04-29 Completed Unive rsity of Dosage 00:00:00 [facility] Hep B, Unspecified 1993-04-29 Completed Univer [facility]ity of Formulation 00:00:00 [facility] [facility] Hep B, Adol or Pedi 1993-04-29 Completed [facility] Dosage 00:00:00 [facility] Hep B, Unspecified 1993-04-29 Completed [facility] Formulation 00:00:00 [facility] Hep B, Adol or Pedi 1993-04-29 Completed [facility] Dosage 00:00:00 [facility] Hep B, Unspecified 1993-04-29 Completed [facility] of Formulation 00:00:00 [facility] Hep B, Adol or Pedi 1993-04-29 Completed [facility] Dosage 00:00:00 [facility] Hep B, Unspecified 1993-04-29 Completed [facility] Formulation 00:00:00 [facility] Hep B, Adol or Pedi 1993-04-29 Completed [facility] Dosage 00:00:00 [facility] Hep B, Unspecified 1993-04-29 Completed Univer [...] 1993-04-29 Completed [facility] Dosage 00:00:00 [facility] DTP 1992 Completed [facility] 00:00:00 [facility] Heamophilus 1992 Completed [facility] Influenza B 00:00:00 [facility] Hib-HbOC 1992 Completed [facility] of 00:00:00 [facility] DTP 1992 Completed [facility] 00:00:00 [facility] Heamophilus 1992 Completed [facility] of Influenza B 00:00:00 [facility] Hib-HbOC 1992 Completed [facility] of 00:00:00 [facility] DTP 1992 Completed [facility] 00:00:00 [facility] Heamophilus 1992 Completed [facility] of Influenza B 00:00:00 [facility] Hib-HbOC 1992 Completed [facility] of 00:00:00 [facility] DTP 1992 Completed [facility] 00:00:00 [facility] Heamophilus 1992 Completed [facility] of Influenza B 00:00:00 [facility] Hib-HbOC 1992 Completed [facility] of 00:00:00 [facility] DTP 1992 Completed [facility] 00:00:00 [facility] Heamophilus 1992 Completed [facility] of Influenza B 00:00:00 [facility] Hib-HbOC 1992 Completed [facility] of 00:00:00 [facility] DTP 1992 Completed [facility] of 00:00:00 [facility] Heamophilus 1992 Completed [facility] of Influenza B 00:00:00 [facility] Hib-HbOC 1992 Completed [facility] of 00:00:00 [facility] DTP 1992 Completed [facility] 00:00:00 [facility] Heamophilus 1992 Completed [facility] of Influenza B 00:00:00 [facility] Hib-HbOC 1992 Completed [facility] of 00:00:00 [facility] DTP 1992 Completed [facility] of 00:00:00 [facility] Heamophilus 1992 Completed [facility] of Influenza B 00:00:00 [facility] Hib-HbOC 1992 Completed [facility] of 00:00:00 [facility] DTP 1992 Completed [facility] 00:00:00 [facility] Heamophilus 1992 Completed [facility] of Influenza B 00:00:00 [facility] Hib-HbOC 1992 Completed [facility] 00:00:00 [facility] DTP 1992 Completed [facility] 00:00:00 [facility] Heamophilus 1992 Completed [facility] of Influenza B 00:00:00 [facility] Hib-HbOC 1992 Completed [facility] of 00:00:00 [facility] DTP 1992 Completed [facility] 00:00:00 [facility] Heamophilus 1992 Completed [facility] of Influenza B 00:00:00 [facility] Hib-HbOC 1992 Completed [facility] of 00:00:00 [facility] DTP 1992 Completed [facility] 00:00:00 [facility] Heamophilus 1992 Completed [facility] of Influenza B 00:00:00 [facility] Hib-HbOC 1992 Completed [facility] of 00:00:00 [facility] DTP 1992 Completed [facility] of 00:00:00 [facility] Heamophilus 1992 Completed [facility] of Influenza B 00:00:00 [facility] Hib-HbOC 1992 Completed [facility] of 00:00:00 [facility] DTP 1992 Completed [facility] 00:00:00 [facility] Heamophilus 1992 Completed [facility] of Influenza B 00:00:00 [facility] Hib-HbOC 1992 Completed [facility] of 00:00:00 [facility] DTP 1992 Completed [facility] of 00:00:00 [facility] Heamophilus 1992 Completed [facility] of Influenza B 00:00:00 [facility] Hib-HbOC 1992 Completed [facility] of 00:00:00 [facility] DTP 1992 Completed [facility] of 00:00:00 [facility] Heamophilus 1992 Completed [facility] of Influenza B 00:00:00 [facility] Hib-HbOC 1992 Completed [facility] of 00:00:00 [facility] DTP 1992 Completed [facility] of 00:00:00 [facility] Heamophilus 1992 Completed [facility] of Influenza B 00:00:00 [facility] Hib-HbOC 1992 Completed [facility] of 00:00:00 [facility] DTP 1992 Completed [facility] 00:00:00 [facility] Heamophilus 1992 Completed [facility] of Influenza B 00:00:00 [facility] Hib-HbOC 1992 Completed [facility] of 00:00:00 [facility] DTP 1992 Completed [facility] of 00:00:00 [facility] Heamophilus 1992 Completed [facility] of Influenza B 00:00:00 [facility] Hib-HbOC 1992 Completed [facility] of 00:00:00 [facility] DTP 1992 Completed [facility] of 00:00:00 [facility] Heamophilus 1992 Completed [facility] of Influenza B 00:00:00 [facility] Hib-HbOC 1992 Completed [facility] of 00:00:00 [facility] DTP 1992 Completed [facility] of 00:00:00 [facility] Heamophilus 1992 Completed [facility] of Influenza B 00:00:00 [facility] Hib-HbOC 1992 Completed [facility] of 00:00:00 [facility] DTP 1992 Completed [facility] of 00:00:00 [facility] Heamophilus 1992 Completed [facility] of Influenza B 00:00:00 [facility] Hib-HbOC 1992 Completed [facility] of 00:00:00 [facility] DTP 1992 Completed [facility] of 00:00:00 [facility] Heamophilus 1992 Completed [facility] of Influenza B 00:00:00 [facility] Hib-HbOC 1992 Completed [facility] of 00:00:00 [facility] DTP 1992 Completed [facility] 00:00:00 [facility] Heamophilus 1992 Completed [facility] of Influenza B 00:00:00 [facility] Hib-HbOC 1992 Completed [facility] of 00:00:00 [facility] DTP 1992 Completed [facility] of 00:00:00 [facility] Heamophilus 1992 Completed [facility] of Influenza B 00:00:00 [facility] Hib-HbOC 1992 Completed [facility] of 00:00:00 [facility] DTP 1992 Completed [facility] of 00:00:00 [facility] Heamophilus 1992 Completed [facility] of Influenza B 00:00:00 [facility] Hib-HbOC 1992 Completed [facility] of 00:00:00 [facility] DTP 1992 Completed [facility] of 00:00:00 [facility] Heamophilus 1992 Completed [facility] of Influenza B 00:00:00 [facility] Hib-HbOC 1992 Completed [facility] of 00:00:00 [facility] DTP 1992 Completed [facility] of 00:00:00 [facility] Heamophilus 1992 Completed [facility] of Influenza B 00:00:00 [facility] Hib-HbOC 1992 Completed [facility] of 00:00:00 [facility] DTP 1992 Completed [facility] of 00:00:00 [facility] Heamophilus 1992 Completed [facility] of Influenza B 00:00:00 [facility] Hib-HbOC 1992 Completed [facility] of 00:00:00 [facility] DTP 1992 Completed [facility] of 00:00:00 [facility] Heamophilus 1992 Completed [facility] of Influenza B 00:00:00 [facility] Hib-HbOC 1992 Completed [facility] of 00:00:00 [facility] Poliovirus, Live, 1992 Completed Univers ity of Oral, Trivalent 00:00:00 [facility] 1992 Completed [facility] of 00:00:00 [facility] Heamophilus 1992 Completed [facility] of Influenza B 00:00:00 [facility] Hib-HbOC 1992 Completed [facility] of 00:00:00 [facility] Poliovirus, Live, 1992 Completed Univers [facility]y of Oral, Trivalent 00:00:00 [facility] 1992 Completed [facility] of 00:00:00 [facility] Heamophilus 1992 Completed [facility] of Influenza B 00:00:00 [facility] Hib-HbOC 1992 Completed [facility] of 00:00:00 [facility] Poliovirus, Live, 1992 Completed [facility]y of Oral, Trivalent 00:00:00 [facility] 1992 Completed [facility] of 00:00:00 [facility] Heamophilus 1992 Completed [facility] of Influenza B 00:00:00 [facility] Hib-HbOC 1992 Completed [facility] of 00:00:00 [facility] Poliovirus, Live, 1992 Completed [facility]y of Oral, Trivalent 00:00:00 [facility] 1992 Completed [facility] 00:00:00 [facility] Heamophilus 1992 Completed [facility] of Influenza B 00:00:00 [facility] Hib-HbOC 1992 Completed [facility] of 00:00:00 [facility] Poliovirus, Live, 1992 Completed [facility] of Oral, Trivalent 00:00:00 [facility] 1992 Completed [facility] 00:00:00 [facility] Heamophilus 1992 Completed [facility] of Influenza B 00:00:00 [facility] Hib-HbOC 1992 Completed [facility] of 00:00:00 [facility] Poliovirus, Live, 1992 Completed [facility] of Oral, Trivalent 00:00:00 [facility] 1992 Completed [facility] of 00:00:00 [facility] Heamophilus 1992 Completed [facility] of Influenza B 00:00:00 [facility] Hib-HbOC 1992 Completed [facility] of 00:00:00 [facility] Poliovirus, Live, 1992 Completed [facility] of Oral, Trivalent 00:00:00 [facility] 1992 Completed [facility] 00:00:00 [facility] Heamophilus 1992 Completed [facility] of Influenza B 00:00:00 [facility] Hib-HbOC 1992 Completed [facility] 00:00:00 [facility] Poliovirus, Live, 1992 Completed [facility] Oral, Trivalent 00:00:00 [facility] 1992 Com[facility] Influ[facility] B [facility]:00 [facility] Hib-HbO 1992 Completed [facility] 00:00:00 [facility] Poliovirus, Live, 1992 Completed [facility] of Oral, Trivalent 00:00:00 [facility] 1992 Completed [facility] Influenza B 00:00:00 [facility] Hib-HbO 1992 Completed [facility] 00:00:00 [facility] Poliovirus, Live, 1992 Completed [facility] of Oral, Trivalent 00:00:00 [facility] 1992 Completed [facility] 00:00:00 [facility] Heamophilus 1992 Completed [facility] of Influenza B 00:00:00 [facility] Hib-HbOC 1992 Completed [facility] of 00:00:00 [facility] Poliovirus, Live, 1992 Completed [facility] of Oral, Trivalent 00:00:00 [facility] 1992 Completed [facility] 00:00:00 [facility] Heamophilus 1992 Completed [facility] of Influenza B 00:00:00 [facility] Hib-HbOC 1992 Completed [facility] of 00:00:00 [facility] Poliovirus, Live, 1992 Completed [facility] of Oral, Trivalent 00:00:00 [facility] 1992 Completed [facility] 00:00:00 [facility] Heamophilus 1992 Completed [facility] of Influenza B 00:00:00 [facility] Hib-HbOC 1992 Completed [facility] 00:00:00 [facility] Poliovirus, Live, 1992 Completed [facility] of Oral, Trivalent 00:00:00 [facility] 1992 Completed [facility] 00:00:00 [facility] Heamophilus 1992 Completed [facility] of Influenza B 00:00:00 [facility] Hib-HbOC 1992 Completed [facility] 00:00:00 [facility] Poliovirus, Live, 1992 Completed [facility] of Oral, Trivalent 00:00:00 [facility] 1992 Completed [facility] Influenza B 00:00:00 [facility] Hib-HbOC 1992 Completed [facility] 00:00:00 [facility] Poliovirus, Live, 1992 Completed [facility] Oral, Trivalent 00:00:00 [facility] 1992 Completed [facility] Influenza B 00:00:00 [facility] Hib-HbOC 1992 Completed [facility] 00:00:00 [facility] Poliovirus, Live, 1992 Completed [facility] of Oral, Trivalent 00:00:00 [facility] 1992 Completed [facility] 00:00:00 [facility] Heamophilus 1992 Completed [facility] of Influenza B 00:00:00 [facility] Hib-HbOC 1992 Completed [facility] 00:00:00 [facility] Poliovirus, Live, 1992 Completed [facility] of Oral, Trivalent 00:00:00 [facility] 1992 Completed [facility] 00:00:00 [facility] Heamophilus 1992 Completed [facility] of Influenza B 00:00:00 [facility] Hib-HbOC 1992 Completed [facility] 00:00:00 [facility] Poliovirus, Live, 1992 Completed [facility] of Oral, Trivalent 00:00:00 [facility] 1992 Completed [facility] 00:00:00 [facility] Heamophilus 1992 Completed [facility] of Influenza B 00:00:00 [facility] Hib-HbOC 1992 Completed [facility] 00:00:00 [facility] Poliovirus, Live, 1992 Completed [facility] of Oral, Trivalent 00:00:00 [facility] 1992 Completed [facility] 00:00:00 [facility] Heamophilus 1992 Completed [facility] of Influenza B 00:00:00 [facility] Hib-HbOC 1992 Completed [facility] 00:00:00 [facility] Poliovirus, Live, 1992 Completed [facility] of Oral, Trivalent 00:00:00 [facility] 1992 Completed [facility] 00:00:00 [facility] Heamophilus 1992 Completed [facility] of Influenza B 00:00:00 [facility] Hib-HbOC 1992 Completed [facility] 00:00:00 [facility] Poliovirus, Live, 1992 Completed [facility] of Oral, Trivalent 00:00:00 [facility] 1992 Completed [facility] 00:00:00 [facility] Heamophilus 1992 Completed [facility] of Influenza B 00:00:00 [facility] Hib-HbOC 1992 Completed [facility] 00:00:00 [facility] Poliovirus, Live, 1992 Completed [facility] of Oral, Trivalent 00:00:00 [facility] 1992 Completed [facility] 00:00:00 [facility] Heamophilus 1992 Completed [facility] of Influenza B 00:00:00 [facility] Hib-HbOC 1992 Completed [facility] 00:00:00 [facility] Poliovirus, Live, 1992 Completed [facility] of Oral, Trivalent 00:00:00 [facility] 1992 Completed [facility] 00:00:00 [facility] Heamophilus 1992 Completed [facility] of Influenza B 00:00:00 [facility] Hib-HbOC 1992 Completed [facility] 00:00:00 [facility] Poliovirus, Live, 1992 Completed [facility] of Oral, Trivalent 00:00:00 [facility] 1992 Completed [facility] 00:00:00 [facility] Heamophilus 1992 Completed [facility] of Influenza B 00:00:00 [facility] Hib-HbOC 1992 Completed [facility] 00:00:00 [facility] Poliovirus, Live, 1992 Completed [facility] Oral, Trivalent 00:00:00 [facility] 1992 Completed [facility]00[facility]00 [facility] Influenza B 00:00:00 [facility] Hib-HbO 1992 Completed [facility] 00:00:00 [facility] Poliovirus, Live, 1992 Completed [facility] Oral, Trivalent 00:00:00 [facility] 1992 Completed [facility] 00:00[facility]00 [facility] Influenza B 00:00:00 [facility] Hib-HbO 1992 Completed [facility] 00:00:00 [facility] Poliovirus, Live, 1992 Completed [facility] of Oral, Trivalent 00:00:00 [facility] 1992 Completed [facility] 00:00:00 [facility] Heamophilus 1992 Completed [facility] of Influenza B 00:00:00 [facility] Hib-HbOC 1992 Completed [facility] 00:00:00 [facility] Poliovirus, Live, 1992 Completed [facility] Oral, Trivalent 00:00:00 [facility] 1992 Completed [facility] 00:00:00 [facility] Heamophilus 1992 Completed [facility] of Influenza B 00:00:00 [facility] Hib-HbOC 1992 Completed [facility] 00:00:00 [facility] Poliovirus, Live, 1992 Completed [facility] Oral, Trivalent 00:00:00 [facility] 1992 Completed [facility] 00:00:00 [facility] Heamophilus 1992 Completed [facility] of Influenza B 00:00:00 [facility] Hib-HbOC 1992 Completed [facility] 00:00:00 [facility] Poliovirus, Live, 1992 Completed [facility] of Oral, Trivalent 00:00:00 [facility] 1992 Completed [facility] 00:00:00 [facility] Heamophilus 1992 Completed [facility] of Influenza B 00:00:00 [facility] Hib-HbOC 1992 Completed [facility] 00:00:00 [facility] Poliovirus, Live, 1992 Completed [facility] Oral, Trivalent 00:00:00 [facility] 1992 Completed [facility] Influenza B 00:00:00 [facility] Hib-HbOC 1992 Completed [facility] 00:00:00 [facility] Poliovirus, Live, 1992 Completed [facility] Oral, Trivalent 00:00:00 [facility] 1992 Completed [facility] Influenza B 00:00:00 [facility] Hib-HbOC 1992 Completed [facility] 00:00:00 [facility] Poliovirus, Live, 1992 Completed [facility] Oral, Trivalent 00:00:00 [facility] 1992 Completed [facility] 00:00:00 [facility] Heamophilus 1992 Completed [facility] Influenza B 00:00:00 [facility] Hib-HbOC 1992 Completed [facility] 00:00:00 [facility] Poliovirus, Live, 1992 Completed [facility] Oral, Trivalent 00:00:00 [facility] 1992 Completed [facility] 00:00:00 [facility] Heamophilus 1992 Completed [facility] Influenza B 00:00:00 [facility] Hib-HbOC 1992 Completed [facility] 00:00:00 [facility] Poliovirus, Live, 1992 Completed [facility] Oral, Trivalent 00:00:00 [facility] 1992 Completed [facility] 00:00:00 [facility] Heamophilus 1992 Completed [facility] Influenza B 00:00:00 [facility] Hib-HbOC 1992 Completed [facility] 00:00:00 [facility] Poliovirus, Live, 1992 Completed [facility] Oral, Trivalent 00:00:00 [facility] 1992 Completed [facility] 00:00:00 [facility] Heamophilus 1992 Completed [facility] Influenza B 00:00:00 [facility] Hib-HbO 1992 Completed [facility] 00:00:00 [facility] Poliovirus, Live, 1992 Completed [facility] Oral, Trivalent 00:00:00 [facility] 1992 Completed [facility] 00:00:00 [facility] Heamophilus 1992 Completed [facility] Influenza B 00:00:00 [facility] Hib-HbO 1992 Completed [facility] 00:00:00 [facility] Poliovirus, Live, 1992 Completed [facility] Oral, Trivalent 00:00:00 [facility] 1992 Completed [facility] Influenza B 00:00:00 [facility] Hib-HbOC 1992 Completed [facility] 00:00:00 [facility] Poliovirus, Live, 1992 Completed [facility] Oral, Trivalent 00:00:00 [facility] 1992 Completed [facility] 00:00:00 [facility] Heamophilus 1992 Completed [facility] Influenza B 00:00:00 [facility] Hib-HbO 1992 Completed [facility] 00:00:00 [facility] Poliovirus, Live, 1992 Completed [facility] Oral, Trivalent 00:00:00 [facility] 1992 Completed [facility] 00:00:00 [facility] Heamophilus 1992 Completed [facility] Influenza B 00:00:00 [facility] Hib-HbOC 1992 Completed [facility] 00:00:00 [facility] Poliovirus, Live, 1992 Completed [facility] Oral, Trivalent 00:00:00 [facility] 1992 Completed [facility] 00:00:00 [facility] Heamophilus 1992 Completed [facility] Influenza B 00:00:00 [facility] Hib-HbOC 1992 Completed [facility] 00:00:00 [facility] Poliovirus, Live, 1992 Completed [facility] Oral, Trivalent 00:00:00 [facility] 1992 Completed [facility] 00:00:00 [facility] Heamophilus 1992 Completed [facility] Influenza B 00:00:00 [facility] Hib-HbOC 1992 Completed [facility] 00:00:00 [facility] Poliovirus, Live, 1992 Completed [facility] Oral, Trivalent 00:00:00 [facility] 1992 Completed [facility] 00:00:00 [facility] Heamophilus 1992 Completed [facility] Influenza B 00:00:00 [facility] Hib-HbOC 1992 Completed [facility] 00:00:00 [facility] Poliovirus, Live, 1992 Completed [facility] Oral, Trivalent 00:00:00 [facility] 1992 Completed [facility] 00:00:00 [facility] Heamophilus 1992 Completed [facility] Influenza B 00:00:00 [facility] Hib-HbOC 1992 Completed [facility] 00:00:00 [facility] Poliovirus, Live, 1992 Completed [facility] Oral, Trivalent 00:00:00 [facility] DT 1992 Completed [facility] 00:00:00 [facility] Heamophilus 1992 Completed [facility] Influenza B 00:00:00 [facility] Hib-HbOC 1992 Completed [facility] 00:00:00 [facility] Poliovirus, Live, 1992 Completed [facility] Oral, Trivalent 00:00:00 [facility] 1992 Completed [facility] 00:00:00 [facility] Heamophilus 1992 Completed [facility] Influenza B 00:00:00 [facility] Hib-HbOC 1992 Completed [facility] 00:00:00 [facility] Poliovirus, Live, 1992 Completed [facility] Oral, Trivalent 00:00:00 [facility] 1992 Completed [facility] 00:00:00 [facility] Heamophilus 1992 Completed [facility] of Influenza B 00:00:00 [facility] Hib-HbOC 1992 Completed [facility] 00:00:00 [facility] Poliovirus, Live, 1992 Completed [facility] Oral, Trivalent 00:00:00 [facility] 1992 Completed [facility] Influenza B 00:00:00 [facility] Hib-HbOC 1992 Completed [facility] 00:00:00 [facility] Poliovirus, Live, 1992 Completed [facility] Oral, Trivalent 00:00:00 [facility] 1992 Completed [facility] Influenza B 00:00:00 [facility] Hib-HbO 1992 Completed [facility] 00:00:00 [facility] Poliovirus, Live, 1992 Completed [facility] of Oral, Trivalent 00:00:00 [facility] 1992 Completed [facility] 00:00:00 [facility] Heamophilus 1992 Completed [facility] of Influenza B 00:00:00 [facility] Hib-HbOC 1992 Completed [facility] 00:00:00 [facility] Poliovirus, Live, 1992 Completed [facility] of Oral, Trivalent 00:00:00 [facility] 1992 Completed [facility] 00:00:00 [facility] Heamophilus 1992 Completed [facility] Influenza B 00:00:00 [facility] Hib-HbOC 1992 Completed [facility] 00:00:00 [facility] Poliovirus, Live, 1992 Completed [facility] of Oral, Trivalent 00:00:00 [facility] DT 1992 Completed [facility] 00:00:00 [facility] Heamophilus 1992 Completed [facility] Influenza B 00:00:00 [facility] Hib-HbOC 1992 Completed [facility] 00:00:00 [facility] Poliovirus, Live, 1992 Completed [facility] of Oral, Trivalent 00:00:00 [facility] 1992 Completed [facility] 00:00:00 [facility] Heamophilus 1992 Completed [facility] Influenza B 00:00:00 [facility] Hib-HbOC 1992 Completed [facility] 00:00:00 [facility] Poliovirus, Live, 1992 Completed [facility] of Oral, Trivalent 00:00:00 [facility] 1992 Completed [facility] Influenza B 00:00:00 [facility] Hib-HbO 1992 Completed [facility] 00:00:00 [facility] Poliovirus, Live, 1992 Completed [facility] of Oral, Trivalent 00:00:00 [facility] 1992 Completed [facility] Influenza B 00:00:00 [facility] Hib-HbOC 1992 Completed [facility] 00:00:00 [facility] Poliovirus, Live, 1992 Completed [facility]y of Oral, Trivalent 00:00:00 [facility] 1992 Completed [facility] 00:00:00 [facility] Heamophilus 1992 Completed [facility] Influenza B 00:00:00 [facility] Hib-HbOC 1992 Completed [facility] 00:00:00 [facility] Poliovirus, Live, 1992 Completed [facility]y of Oral, Trivalent 00:00:00 [facility] 1992 Completed [facility] 00:00:00 [facility] Heamophilus 1992 Completed [facility] Influenza B 00:00:00 [facility] Hib-HbOC 1992 Completed University 00:00:00 [facility] Poliovirus, Live, 1992 Completed [facility] of Oral, Trivalent 00:00:00 [facility] PFIZER COVID-19 MRNA Unknown Completed Meth odist [...] MRNA Unknown Completed [facility] SARS-COV-2 COVID-19 Unknown Completed Unive rsity of PFIZER VACCINE [facility] SARS-COV-2 COVID-19 Unknown Completed Unive rsity of PFIZER VACCINE [facility] DTP Unknown Completed [facility] DTP Unknown Completed [facility] DTP Unknown Completed [facility] DTP Unknown Completed [facility] DTaP, Unspecified Unknown Completed Univers ity of Formulation [facility] Influenza Virus Unknown Completed Universit y of Vaccine Quad .5 mL [facility] 6+ MO Branch (FLUZONE/FLULAVAL/FL UARIX) Hep B, Unspecified Unknown Completed Univer sity of Formulation [facility] HEPATITIS A Unknown Completed [facility] HEPATITIS A Unknown Completed [facility] Hep B, Unspecified Unknown Completed Univer sity of Formulation [facility] Hep B, Adol or Pedi Unknown Completed Unive rsity of Dosage [facility] Hep B, Adol or Pedi Unknown Completed Unive rsity of Dosage [facility] Hep B, Adol or Pedi Unknown Completed Unive rsity of Dosage [facility] Heamophilus Unknown Completed [facility] Influenza B [facility] Heamophilus Unknown Completed [facility] Influenza B [facility] Heamophilus Unknown Completed [facility] Influenza B [facility] Heamophilus Unknown Completed [facility] Influenza [facility] Hib-HbOC Unknown Completed [facility] Hib[facility]HbOC Unknown Completed [facility] Hib-HbOC Unknown Completed [facility] Hib-HbOC Unknown Completed [facility] HPV Unknown Completed [facility] HPV Unknown Completed [facility] HPV Unknown Completed [facility] Meningococcal Unknown Completed [facility] (groups A, C, Y and Branc h W-135) conjugate vaccine (MCV4P) MMR Unknown Completed [facility] MMR Unknown Completed [facility] Poliovirus, Live, Unknown Completed Univers ity of Oral, Trivalent [facility] Poliovirus, Live, Unknown Completed [facility] ity of Oral, Trivalent [facility] Poliovirus, Live, Unknown Completed Univers ity of Oral, Trivalent [facility] Poliovirus, Live, Unknown Completed Univers ity of Oral, Trivalent [facility] Tetanus/Diptheria Unknown Completed Univers ity [facility] TDAP Unknown Completed [facility] Varicella Unknown Completed University (varivax)(chicken [place] [facility] pox) Branch Varicella Unknown Completed [facility] (varivax)(chicken [place] [facility] pox) Branch SARS-COV-2 COVID-19 Unknown Completed Unive rsity of PFIZER VACCINE [facility] SARS-COV-2 COVID-19 Unknown Completed Unive rsity of PFIZER VACCINE [facility] DTP Unknown Completed [facility] DTP Unknown Completed [facility] DTP Unknown Completed [facility] DTP Unknown Completed [facility] DTaP, Unspecified Unknown Completed Univers ity of Formulation [facility] Influenza Virus Unknown Completed Universit y of Vaccine Quad .5 mL [facility] 6+ MO Branch (FLUZONE/FLULAVAL/FL UARIX) Hep B, Unspecified Unknown Completed Univer sity of Formulation [facility] HEPATITIS A Unknown Completed [facility] HEPATITIS A Unknown Completed [facility] Hep B, Unspecified Unknown Completed Univer sity of Formulation [facility] Hep B, Adol or Pedi Unknown Completed Unive rsity of Dosage [facility] Hep B, Adol or Pedi Unknown Completed Unive rsity of Dosage [facility] Hep B, Adol or Pedi Unknown Completed Unive rsity of Dosage [facility] Heamophilus Unknown Completed [facility] Influenza B [facility] Heamophilus Unknown Completed [facility] Influenza [facility] Heamophilus Unknown Completed [facility] Influenza B [facility] Heamophilus Unknown Completed [facility] Influenza [facility] Hib-HbOC Unknown Completed [facility] Hib-HbOC Unknown Completed [facility] Hib-HbOC Unknown Completed [facility] Hib-HbOC Unknown Completed [facility] HPV Unknown Completed [facility] HPV Unknown Completed [facility] HPV Unknown Completed [facility] Meningococcal Unknown Completed [facility] (groups A, C, Y and Branc h W-135) conjugate vaccine (MCV4P) MMR Unknown Completed [facility] MMR Unknown Completed [facility] Poliovirus, Live, Unknown Completed Univers ity of Oral, Trivalent [facility] Poliovirus, Live, Unknown Completed Univers ity of Oral, Trivalent [facility] Poliovirus, Live, Unknown Completed Univers ity of Oral, Trivalent [facility] Poliovirus, Live, Unknown Completed Univers ity of Oral, Trivalent [facility] Tetanus/Diptheria Unknown Completed Univers ity [facility] TDAP Unknown Completed [facility] Varicella Unknown Completed [facility] (varivax)(chicken [place] [facility] pox) Branch Varicella Unknown Completed [facility] (varivax)(chicken [place] [facility] pox) Branch SARS-COV-2 COVID-19 Unknown Completed Unive rsity of PFIZER VACCINE [facility] SARS-COV-2 COVID-19 Unknown Completed Unive rsity of PFIZER VACCINE [facility] DTP Unknown Completed [facility] DTP Unknown Completed [facility] DTP Unknown Completed [facility] DTP Unknown Completed [facility] DTaP, Unspecified Unknown Completed Univers ity of Formulation [facility] Influenza Virus Unknown Completed Universit y of Vaccine Quad .5 mL [facility] 6+ MO Branch (FLUZONE/FLULAVAL/FL UARIX) Hep B, Unspecified Unknown Completed Univer sity of Formulation [facility] HEPATITIS A Unknown Completed [facility] HEPATITIS A Unknown Completed [facility] Hep B, Unspecified Unknown Completed Univer sity of Formulation [facility] Hep B, Adol or Pedi Unknown Completed Unive rsity of Dosage [facility] Hep B, Adol or Pedi Unknown Completed Unive rsity of Dosage [facility] Hep B, Adol or Pedi Unknown Completed Unive rsity of Dosage [facility] Heamophilus Unknown Completed [facility] Influenza B [facility] Heamophilus Unknown Completed [facility] Influenza B [facility] Heamophilus Unknown Completed [facility] Influenza B [facility] Heamophilus Unknown Completed [facility] Influenza [facility] Hib-HbOC Unknown Completed [facility] Hib-HbOC Unknown Completed [facility] Hib-HbOC Unknown Completed [facility] Hib-HbOC Unknown Completed [facility] HPV Unknown Completed [facility] HPV Unknown Completed [facility] HPV Unknown Completed [facility] Meningococcal Unknown Completed [facility] (groups A, C, Y and Branc h W-135) conjugate vaccine (MCV4P) MMR Unknown Completed [facility] MMR Unknown Completed [facility] Poliovirus, Live, Unknown Completed Univers ity of Oral, Trivalent [facility] Poliovirus, Live, Unknown Completed Univers ity of Oral, Trivalent [facility] Poliovirus, Live, Unknown Completed Univers ity of Oral, Trivalent [facility] Poliovirus, Live, Unknown Completed Univers ity of Oral, Trivalent [facility] Tetanus/Diptheria Unknown Completed Univers ity [facility] TDAP Unknown Completed [facility] Varicella Unknown Completed University (varivax)(chicken [place] [facility] pox) Branch Varicella Unknown Completed [facility] (varivax)(chicken [place] [facility] pox) Branch SARS-COV-2 COVID-19 Unknown Completed Unive rsity of PFIZER VACCINE [facility] Branch SARS-COV-2 COVID-19 Unknown Completed Unive rsity of PFIZER VACCINE [facility] DTP Unknown Completed [facility] DTP Unknown Completed [facility] DTP Unknown Completed [facility] DTP Unknown Completed [facility] DTaP, Unspecified Unknown Completed Univers ity of Formulation [facility] Influenza Virus Unknown Completed Universit y of Vaccine Quad .5 mL [facility] 6+ MO Branch (FLUZONE/FLULAVAL/FL UARIX) Hep B, Unspecified Unknown Completed Univer sity of Formulation [facility] HEPATITIS A Unknown Completed [facility] HEPATITIS A Unknown Completed [facility] Hep B, Unspecified Unknown Completed Univer sity of Formulation [facility] Hep B, Adol or Pedi Unknown Completed Unive rsity of Dosage [facility] Hep B, Adol or Pedi Unknown Completed Unive rsity of Dosage [facility] Hep B, Adol or Pedi Unknown Completed Unive rsity of Dosage [facility] Heamophilus Unknown Completed [facility] Influenza [facility] Heamophilus Unknown Completed [facility] Influenza B [facility] Heamophilus Unknown Completed [facility] Influenza B [facility] Heamophilus Unknown Completed [facility] Influenza [facility] Hib-HbOC Unknown Completed [facility] Hib-HbOC Unknown Completed [facility] Hib-HbOC Unknown Completed [facility] Hib[facility]HbOC Unknown Completed [facility] HPV Unknown Completed [facility] HPV Unknown Completed [facility] HPV Unknown Completed [facility] Meningococcal Unknown Completed [facility] Polysaccharide [facility] (groups A, C, Y and Branc h W-135) conjugate vaccine (MCV4P) MMR Unknown Completed [facility] MMR Unknown Completed [facility] Poliovirus, Live, Unknown Completed Univers ity of Oral, Trivalent [facility] Poliovirus, Live, Unknown Completed Univers ity of Oral, Trivalent [facility] Poliovirus, Live, Unknown Completed Univers ity of Oral, Trivalent [facility] Poliovirus, Live, Unknown Completed Univers ity of Oral, Trivalent [facility] Tetanus/Diptheria Unknown Completed Univers ity [facility] TDAP Unknown Completed [facility] Varicella Unknown Completed [facility] of (varivax)(chicken [place] [facility] pox) Branch Varicella Unknown Completed [facility] (varivax)(chicken [place] [facility] pox) Branch SARS-COV-2 COVID-19 Unknown Completed Unive rsity of PFIZER VACCINE [facility] SARS-COV-2 COVID-19 Unknown Completed Unive rsity of PFIZER VACCINE [facility] DTP Unknown Completed [facility] DTP Unknown Completed [facility] DTP Unknown Completed [facility] DTP Unknown Completed [facility] DTaP, Unspecified Unknown Completed Univers ity of Formulation [facility] Influenza Virus Unknown Completed Universit y of Vaccine Quad .5 mL [facility] 6+ MO Branch (FLUZONE/FLULAVAL/FL UARIX) Hep B, Unspecified Unknown Completed Univer sity of Formulation [facility] HEPATITIS A Unknown Completed [facility] HEPATITIS A Unknown Completed [facility] Hep B, Unspecified Unknown Completed Univer sity of [facility] Hep B, Adol or Pedi Unknown Completed Unive rsity of Dosage [facility] Hep B, Adol or Pedi Unknown Completed Unive rsity of Dosage [facility] Hep B, Adol or Pedi Unknown Completed Unive rsity of Dosage [facility] Heamophilus Unknown Completed [facility] Influenza [facility] Heamophilus Unknown Completed [facility] Heamophilus Unknown Completed [facility] Influenza [facility] Heamophilus Unknown Completed [facility] Hib-HbOC Unknown Completed [facility] Hib-HbOC Unknown Completed [facility] Hib-HbOC Unknown Completed [facility] Hib-HbOC Unknown Completed [facility] HPV Unknown Completed [facility] HPV Unknown Completed [facility] HPV Unknown Completed [facility] Meningococcal Unknown Completed [facility] (groups A, C, Y and Branc h W-135) conjugate vaccine (MCV4P) MMR Unknown Completed [facility] MMR Unknown Completed [facility] Poliovirus, Live, Unknown Completed Univers ity of Oral, Trivalent [facility] Poliovirus, Live, Unknown Completed Univers ity of Oral, Trivalent [facility] Poliovirus, Live, Unknown Completed Univers ity of Oral, Trivalent [facility] Poliovirus, Live, Unknown Completed Univers ity of Oral, Trivalent [facility] Tetanus/Diptheria Unknown Completed [facility] ity [facility] TDAP Unknown Completed [facility] Varicella Unknown Completed [facility] (varivax)(chicken [place] [facility] pox) Branch Varicella Unknown Completed [facility] (varivax)(chicken [place] [facility] pox) Branch SARS-COV-2 COVID-19 Unknown Completed Unive rsity of PFIZER VACCINE [facility] SARS-COV-2 COVID-19 Unknown Completed Unive rsity of PFIZER VACCINE [facility] DTP Unknown Completed [facility] DTP Unknown Completed [facility] DTP Unknown Completed [facility] DTP Unknown Completed [facility] DTaP, Unspecified Unknown Completed Univers ity of Formulation [facility] Influenza Virus Unknown Completed Universit y of Vaccine Quad .5 mL [facility] 6+ MO Branch (FLUZONE/FLULAVAL/FL UARIX) Hep B, Unspecified Unknown Completed Univer sity of Formulation [facility] HEPATITIS A Unknown Completed [facility] HEPATITIS A Unknown Completed [facility] Hep B, Unspecified Unknown Completed Univer sity of Formulation [facility] Hep B, Adol or Pedi Unknown Completed Unive rsity of Dosage [facility] Hep B, Adol or Pedi Unknown Completed Unive rsity of Dosage [facility] Hep B, Adol or Pedi Unknown Completed Unive rsity of Dosage [facility] Heamophilus Unknown Completed [facility] Influenza [facility] Heamophilus Unknown Completed [facility] Influenza [facility] Heamophilus Unknown Completed [facility] Influenza B [facility] Heamophilus Unknown Completed [facility] Hib-HbOC Unknown Completed [facility] Hib-HbOC Unknown Completed [facility] Hib[facility]HbOC Unknown Completed [facility] Hib-HbOC Unknown Completed [facility] HPV Unknown Completed [facility] HPV Unknown Completed [facility] HPV Unknown Completed [facility] Meningococcal Unknown Completed [facility] (groups A, C, Y and Branc h W-135) conjugate vaccine (MCV4P) MMR Unknown Completed [facility] MMR Unknown Completed [facility] Poliovirus, Live, Unknown Completed Univers ity of Oral, Trivalent [facility] Poliovirus, Live, Unknown Completed Univers ity of Oral, Trivalent [facility] Poliovirus, Live, Unknown Completed Univers ity of Oral, Trivalent [facility] Poliovirus, Live, Unknown Completed Univers ity of Oral, Trivalent [facility] Tetanus/Diptheria Unknown Completed [facility] ity [facility] TDAP Unknown Completed [facility] Varicella Unknown Completed University (varivax)(chicken [place] M ed[facility] pox) Branch Varicella Unknown Completed [facility] (varivax)(chicken [place] [facility] pox) Branch SARS-COV-2 COVID-19 Unknown Completed Unive rsity of PFIZER VACCINE [facility] SARS-COV-2 COVID-19 Unknown Completed Unive rsity of PFIZER VACCINE [facility] DTP Unknown Completed [facility] DTP Unknown Completed [facility] DTP Unknown Completed [facility] DTP Unknown Completed [facility] DTaP, Unspecified Unknown Completed Univers ity of Formulation [facility] Influenza Virus Unknown Completed Universit y of Vaccine Quad .5 mL [facility] 6+ MO Branch (FLUZONE/FLULAVAL/FL UARIX) Hep B, Unspecified Unknown Completed Univer sity of Formulation [facility] HEPATITIS A Unknown Completed [facility] HEPATITIS A Unknown Completed [facility] Hep B, Unspecified Unknown Completed Univer sity of [facility] Hep B, Adol or Pedi Unknown Completed Unive rsity of Dosage [facility] Hep B, Adol or Pedi Unknown Completed Unive rsity of Dosage [facility] Hep B, Adol or Pedi Unknown Completed Unive rsity of Dosage [facility] Heamophilus Unknown Completed [facility] Influenza [facility] Heamophilus Unknown Completed [facility] Influenza [facility] [facility] Heamophilus Unknown Completed [facility] Influenza B [facility] Heamophilus Unknown Completed [facility] Hib-HbOC Unknown Completed [facility] Hib-HbOC Unknown Completed [facility] Hib[facility]HbOC Unknown Completed [facility] Hib-HbOC Unknown Completed [facility] HPV Unknown Completed [facility] HPV Unknown Completed [facility] HPV Unknown Completed [facility] Meningococcal Unknown Completed [facility] Polysaccharide [facility] (groups A, C, Y and Branc h W-135) conjugate vaccine (MCV4P) MMR Unknown Completed [facility] MMR Unknown Completed [facility] Poliovirus, Live, Unknown Completed Univers [facility] Oral, Trivalent [facility] Poliovirus, Live, Unknown Completed [facility] Oral, Trivalent [facility] Poliovirus, Live, Unknown Completed [facility] Oral, Trivalent [facility] Poliovirus, Live, Unknown Completed [facility] Oral, Trivalent [facility] Tetanus/Diptheria Unknown Completed [facility] ity [facility] TDAP Unknown Completed [facility] Varicella Unknown Completed [facility] (varivax[facility] [place] [facility] pox[facility] Varicella Unknown Completed [facility] (varivax[facility] [place] [facility] pox[place] [facility] SARS-COV-2 COVID-19 Unknown Completed Unive rsity of PFIZER VACCINE [facility] SARS-COV-2 COVID-19 Unknown Completed Unive rsity of PFIZER VACCINE [facility] DTP Unknown Completed [facility] DTP Unknown Completed [facility] DTP Unknown Completed [facility] DTP Unknown Completed [facility] DTaP, Unspecified Unknown Completed [facility]y [facility] Formulation [facility] Influenza Virus Unknown Completed Universit y of Vaccine Quad .5 mL [facility] 6+ [place] Branch (FLUZONE/FLULAVAL/FL UARIX) Hep B, Unspecified Unknown Completed Univer sity of Formulation [facility] HEPATITIS A Unknown Completed [facility] HEPATITIS A Unknown Completed [facility] Hep B, Unspecified Unknown Completed Univer [facility]ity of Formulation [facility] Hep B, Adol or Pedi Unknown Completed Unive rsity of Dosage [facility] Hep B, Adol or Pedi Unknown Completed [facility]ive [facility]ity of Dosage [facility] Hep B, Adol or Pedi Unknown Completed [facility]ive [facility]ity of Dosage [facility] Heamophilus Unknown Completed [facility] Heamophilus Unknown Completed [facility] Heamophilus Unknown Completed [facility] Influenza [facility] Heamophilus Unknown Completed [facility] Hib-HbOC Unknown Completed [facility] Hib-HbOC Unknown Completed [facility] Hib[facility]HbOC Unknown Completed [facility] Hib-HbOC Unknown Completed [facility] HPV Unknown Completed [facility] HPV Unknown Completed [facility] HPV Unknown Completed [facility] Meningococcal Unknown Completed [facility] (groups A, C, Y and Branc h W-135) conjugate vaccine (MCV4P) MMR Unknown Completed [facility] MMR Unknown Completed [facility] Poliovirus, Live, Unknown Completed [facility] Oral, Trivalent [facility] Poliovirus, Live, Unknown Completed [facility] Oral, Trivalent [facility] Poliovirus, Live, Unknown Completed [facility] Oral, Trivalent [facility] Poliovirus, Live, Unknown Completed [facility] Oral, Trivalent [facility] Tetanus/Diptheria Unknown Completed [facility] ity [facility] TDAP Unknown Completed [facility] Varicella Unknown Completed [facility] (varivax)(chicken [place] [facility] pox) Branch Varicella Unknown Completed [facility] (varivax)(chicken [place] [facility] [place] pox[place] [facility] SARS-COV-2 COVID-19 Unknown Completed Unive rsity of PFIZER VACCINE [facility] SARS-COV-2 COVID-19 Unknown Completed Unive rsity of PFIZER VACCINE [facility] DTP Unknown Completed [facility] DTP Unknown Completed [facility] DTP Unknown Completed [facility] DTP Unknown Completed [facility] DTaP, Unspecified Unknown Completed [facility] Formulation [facility] Influenza Virus Unknown Completed [facility] y of Vaccine Quad .5 mL [facility] 6+ [place] Branch (FLUZONE/FLULAVAL/FL UARIX) Hep B, Unspecified Unknown Completed Univer sity of Formulation [facility] HEPATITIS A Unknown Completed [facility] HEPATITIS A Unknown Completed [facility] Hep B, Unspecified Unknown Completed Univer [facility]ity of Formulation [facility] Hep B, Adol or Pedi Unknown Completed Unive [facility]ity of Dosage [facility] Hep B, Adol or Pedi Unknown Completed [facility]ive [facility] of Dosage [facility] Hep B, Adol or Pedi Unknown Completed [facility]ive [facility]ity of Dosage [facility] Heamophilus Unknown Completed [facility] Influenza [facility] Heamophilus Unknown [facility]pleted [facility] Influenza [facility] Heamophilus Unknown [facility]pleted [facility] Influenza [facility] Heamophilus Unknown [facility]pleted [facility] Influenza [facility] Hib-HbOC Unknown Completed [facility] Hib-HbOC Unknown Completed [facility] Hib[facility]HbOC Unknown Completed [facility] Hib-HbOC Unknown Completed [facility] HPV Unknown Completed [facility] HPV Unknown Completed [facility] HPV Unknown Completed [facility] Meningococcal Unknown Completed [facility] (groups A, C, Y and Branc h W-135) conjugate vaccine (MCV4P) MMR Unknown Completed [facility] MMR Unknown Completed [facility] Poliovirus, Live, Unknown Completed [facility] Oral, Trivalent [facility] Poliovirus, Live, Unknown Completed [facility] Oral, Trivalent [facility] Poliovirus, Live, Unknown Completed [facility] Oral, Trivalent [facility] Poliovirus, Live, Unknown Completed [facility] Oral, Trivalent [facility] Tetanus/Diptheria Unknown Completed Univers ity of [facility] TDAP Unknown Completed [facility] Varicella Unknown Completed [facility] (varivax[facility]icken [place] [facility] pox[facility] Varicella Unknown Completed [facility] (varivax[facility]chicken [place] [facility] pox[place] [facility] SARS-COV-2 COVID-19 Unknown Completed Unive rsity of PFIZER VACCINE [facility] SARS-COV-2 COVID-19 Unknown Completed Unive rsity of PFIZER VACCINE [facility] DTP Unknown Completed [facility] DTP Unknown Completed [facility] DTP Unknown Completed [facility] DTP Unknown Completed [facility] DTaP, Unspecified Unknown Completed [facility] Formulation [facility] Influenza Virus Unknown Completed [facility] of Vaccine Quad .5 mL [facility] 6+ [place] Branch (FLUZONE/FLULAVAL/FL UARIX) Hep B, Unspecified Unknown Completed Univer sity of Formulation [facility] HEPATITIS A Unknown Completed [facility] HEPATITIS A Unknown Completed [facility] Hep B, Unspecified Unknown Completed Univer sity of [facility] Hep B, Adol or Pedi Unknown Completed Unive rsity of Dosage [facility] Hep B, Adol or Pedi Unknown Completed Unive [facility] of Dosage [facility] Hep B, Adol or Pedi Unknown Completed Unive [facility]ity of Dosage [facility] Heamophilus Unknown Completed [facility] Influenza B [facility] Heamophilus Unknown Completed [facility] Influenza B [facility] Heamophilus Unknown Completed [facility] Influenza B [facility] Heamophilus Unknown Completed [facility] Influenza B [facility] Hib-HbOC Unknown Completed [facility] Hib-HbOC Unknown Completed [facility] Hib[facility]HbOC Unknown Completed [facility] Hib-HbOC Unknown Completed [facility] HPV Unknown Completed [facility] HPV Unknown Completed [facility] HPV Unknown Completed [facility] Meningococcal Unknown Completed [facility] (groups A, C, Y and Branc h W-135) conjugate vaccine (MCV4P) MMR Unknown Completed [facility] MMR Unknown Completed [facility] Poliovirus, Live, Unknown Completed Univers [facility]y of Oral, Trivalent [facility] Poliovirus, Live, Unknown Completed [facility] Oral, Trivalent [facility] Poliovirus, Live, Unknown Completed [facility] of Oral, Trivalent [facility] Poliovirus, Live, Unknown Completed [facility] Oral, Trivalent [facility] Tetanus/Diptheria Unknown Completed [facility] TDAP Unknown Completed [facility] Varicella Unknown Completed [facility] (varivax[facility]chicken [place] [facility] pox) [facility] Varicella Unknown Completed [facility] (varivax[facility]chicken [place] [facility] pox[place] [facility] SARS-COV-2 COVID-19 Unknown Completed Unive rsity of PFIZER VACCINE [facility] SARS-COV-2 COVID-19 Unknown Completed Unive rsity of PFIZER VACCINE [facility] DTP Unknown Completed [facility] DTP Unknown Completed [facility] DTP Unknown Completed [facility] DTP Unknown Completed [facility] DTaP, Unspecified Unknown Completed [facility] Formulation [facility] Influenza Virus Unknown Completed [facility] of Vaccine Quad .5 mL [facility] 6+ [place] Branch (FLUZONE/FLULAVAL/FL UARIX) Hep B, Unspecified Unknown Completed Univer sity of Formulation [facility] HEPATITIS A Unknown Completed [facility] HEPATITIS A Unknown Completed [facility] Hep B, Unspecified Unknown Completed Univer sity of Formulation [facility] Hep B, Adol or Pedi Unknown Completed Unive rsity of Dosage [facility] Hep B, Adol or Pedi Unknown Completed Unive rsity of Dosage [facility] Hep B, Adol or Pedi Unknown Completed Unive rsity of Dosage [facility] Heamophilus Unknown Completed [facility] Influenza B [facility] Heamophilus Unknown Completed [facility] Influenza B [facility] Heamophilus Unknown Completed [facility] Influenza B [facility] Heamophilus Unknown Completed [facility] Influenza B [facility] Hib-HbOC Unknown Completed [facility] Hib-HbOC Unknown Completed [facility] Hib[facility]HbOC Unknown Completed [facility] Hib-HbOC Unknown Completed [facility] HPV Unknown Completed [facility] HPV Unknown Completed [facility] HPV Unknown Completed [facility] Meningococcal Unknown Completed [facility] (groups A, C, Y and Branc h W-135) conjugate vaccine (MCV4P) MMR Unknown Completed [facility] MMR Unknown Completed [facility] Poliovirus, Live, Unknown Completed [facility] Oral, Trivalent [facility] Poliovirus, Live, Unknown Completed [facility] of Oral, Trivalent [facility] Poliovirus, Live, Unknown Completed [facility] of Oral, Trivalent [facility] Poliovirus, Live, Unknown Completed [facility] of Oral, Trivalent [facility] Tetanus/Diptheria Unknown Completed [facility] TDAP Unknown Completed [facility] Varicella Unknown Completed [facility] (varivax)(chicken [place] [facility] pox) Branch Varicella Unknown Completed [facility] (varivax)(chicken [place] [facility] pox) Branch SARS-COV-2 COVID-19 Unknown Completed Unive rsity of PFIZER VACCINE [facility] SARS-COV-2 COVID-19 Unknown Completed Unive rsity of PFIZER VACCINE [facility] DTP Unknown Completed [facility] DTP Unknown Completed [facility] DTP Unknown Completed [facility] DTP Unknown Completed [facility] DTaP, Unspecified Unknown Completed [facility] of Formulation [facility] Influenza Virus Unknown Completed [facility] of Vaccine Quad .5 mL [facility] 6+ [place] Branch (FLUZONE/FLULAVAL/FL UARIX) Hep B, Unspecified Unknown Completed Univer sity of Formulation [facility] HEPATITIS A Unknown Completed [facility] HEPATITIS A Unknown Completed [facility] Hep B, Unspecified Unknown Completed Univer sity of Formulation [facility] Hep B, Adol or Pedi Unknown Completed Unive rsity of Dosage [facility] Hep B, Adol or Pedi Unknown Completed Unive rsity of Dosage [facility] Hep B, Adol or Pedi Unknown Completed Unive rsity of Dosage [facility] Heamophilus Unknown Completed [facility] Influenza B [facility] Heamophilus Unknown Completed [facility] Influenza B [facility] Heamophilus Unknown Completed [facility] Influenza B [facility] Heamophilus Unknown Completed University Influenza B [facility] Hib-HbOC Unknown Completed [facility] Hib-HbOC Unknown Completed [facility] Hib[facility]HbOC Unknown Completed [facility] Hib-HbOC Unknown Completed [facility] HPV Unknown Completed [facility] HPV Unknown Completed [facility] HPV Unknown Completed [facility] Meningococcal Unknown Completed [facility] (groups A, C, Y and Branc h W-135) conjugate vaccine (MCV4P) MMR Unknown Completed [facility] MMR Unknown Completed [facility] Poliovirus, Live, Unknown Completed Univers [facility] of Oral, Trivalent [facility] Poliovirus, Live, Unknown Completed [facility] of Oral, Trivalent [facility] Poliovirus, Live, Unknown Completed [facility] of Oral, Trivalent [facility] Poliovirus, Live, Unknown Completed [facility] of Oral, Trivalent [facility] Tetanus/Diptheria Unknown Completed [facility] TDAP Unknown Completed [facility] Varicella Unknown Completed [facility] (varivax)(chicken [place] [facility] pox) Branch Varicella Unknown Completed [facility] (varivax)(chicken [place] [facility] pox) Branch SARS-COV-2 COVID-19 Unknown Completed Unive rsity of PFIZER VACCINE [facility] SARS-COV-2 COVID-19 Unknown Completed Unive rsity of PFIZER VACCINE [facility] DTP Unknown Completed [facility] DTP Unknown Completed [facility] DTP Unknown Completed [facility] DTP Unknown Completed [facility] DTaP, Unspecified Unknown Completed [facility] of Formulation [facility] Influenza Virus Unknown Completed [facility] of Vaccine Quad .5 mL [facility] 6+ [place] Branch (FLUZONE/FLULAVAL/FL UARIX) Hep B, Unspecified Unknown Completed Univer sity of Formulation [facility] HEPATITIS A Unknown Completed [facility] HEPATITIS A Unknown Completed [facility] Hep B, Unspecified Unknown Completed Univer sity of Formulation [facility] Hep B, Adol or Pedi Unknown Completed Unive rsity of Dosage [facility] Hep B, Adol or Pedi Unknown Completed Unive rsity of Dosage [facility] Hep B, Adol or Pedi Unknown Completed Unive rsity of Dosage [facility] Heamophilus Unknown Completed [facility] Influenza [facility] Heamophilus Unknown [facility]pleted [facility] Influenza [facility] Heamophilus Unknown [facility]pleted [facility] Influenza [facility] Heamophilus Unknown [facility]pleted [facility] Influenza [facility] Hib-HbOC Unknown Completed [facility] Hib-HbOC Unknown Completed [facility] Hib[facility]HbOC Unknown Completed [facility] Hib[facility]HbOC Unknown Completed [facility] HPV Unknown Completed [facility] HPV Unknown Completed [facility] HPV Unknown Completed [facility] Meningococcal Unknown Completed [facility] (groups A, C, Y and Branc h W-135) conjugate vaccine (MCV4P) MMR Unknown Completed [facility] MMR Unknown Completed [facility] Poliovirus, Live, Unknown Completed Univers [facility]y of Oral, Trivalent [facility] Poliovirus, Live, Unknown Completed [facility]y of Oral, Trivalent [facility] Poliovirus, Live, Unknown Completed [facility]y of Oral, Trivalent [facility] Poliovirus, Live, Unknown Completed [facility]y of Oral, Trivalent [facility] Tetanus/Diptheria Unknown Completed [facility] TDAP Unknown Completed [facility] Varicella Unknown Completed [facility] (varivax)(chicken [place] [facility] pox) Branch Varicella Unknown Completed [facility] (varivax)(chicken [place] [facility] pox) Branch SARS-COV-2 COVID-19 Unknown Completed Unive rsity of PFIZER VACCINE [facility] SARS-COV-2 COVID-19 Unknown Completed Unive rsity of PFIZER VACCINE [facility] DTP Unknown Completed [facility] DTP Unknown Completed [facility] DTP Unknown Completed [facility] DTP Unknown Completed [facility] DTaP, Unspecified Unknown Completed [facility] of Formulation [facility] Influenza Virus Unknown Completed [facility] of Vaccine Quad .5 mL [facility] 6+ [place] Branch (FLUZONE/FLULAVAL/FL UARIX) Hep B, Unspecified Unknown Completed Univer sity of Formulation [facility] HEPATITIS A Unknown Completed [facility] HEPATITIS A Unknown Completed [facility] Hep B, Unspecified Unknown Completed Univer sity of Formulation [facility] Hep B, Adol or Pedi Unknown Completed Unive rsity of Dosage [facility] Hep B, Adol or Pedi Unknown Completed Unive rsity of Dosage [facility] Hep B, Adol or Pedi Unknown Completed Unive rsity of Dosage [facility] Heamophilus Unknown Completed [facility] Influenza [facility] Heamophilus Unknown [facility]pleted [facility] Influenza [facility] Heamophilus Unknown [facility]pleted [facility] Influenza [facility] Heamophilus Unknown [facility]pleted [facility] Influenza [facility] Hib-HbOC Unknown Completed [facility] Hib-HbOC Unknown Completed [facility] Hib[facility]HbOC Unknown Completed [facility] Hib-HbOC Unknown Completed [facility] HPV Unknown Completed [facility] HPV Unknown Completed [facility] HPV Unknown Completed [facility] Meningococcal Unknown Completed [facility] (groups A, C, Y and Branc h W-135) conjugate vaccine (MCV4P) MMR Unknown Completed [facility] MMR Unknown Completed [facility] Poliovirus, Live, Unknown Completed [facility] of Oral, Trivalent [facility] Poliovirus, Live, Unknown Completed Univers [facility]y of Oral, Trivalent [facility] Poliovirus, Live, Unknown Completed [facility]y of Oral, Trivalent [facility] Poliovirus, Live, Unknown Completed [facility] of Oral, Trivalent [facility] Tetanus/Diptheria Unknown Completed [facility] TDAP Unknown Completed [facility] Varicella Unknown Completed [facility] (varivax)(chicken [place] [facility] pox) Branch Varicella Unknown Completed [facility] (varivax)(chicken [place] [facility] pox) Branch SARS-COV-2 COVID-19 Unknown Completed Unive rsity of PFIZER VACCINE [facility] SARS-COV-2 COVID-19 Unknown Completed Unive rsity of PFIZER VACCINE [facility] DTP Unknown Completed [facility] [facility] DTP Unknown Completed [facility] DTP Unknown Completed [facility] DTP Unknown Completed [facility] DTaP, Unspecified Unknown Completed [facility] of Formulation [facility] Influenza Virus Unknown Completed Universit y of Vaccine Quad .5 mL [facility] 6+ MO Branch (FLUZONE/FLULAVAL/FL UARIX) Hep B, Unspecified Unknown Completed Univer sity of Formulation [facility] HEPATITIS A Unknown Completed [facility] HEPATITIS A Unknown Completed [facility] Hep B, Unspecified Unknown Completed [facility]iver [facility] of Formulation [facility] Hep B, Adol or Pedi Unknown Completed Unive rsity of Dosage [facility] Hep B, Adol or Pedi Unknown Completed [facility]ive [facility]ity of Dosage [facility] Hep B, Adol or Pedi Unknown Completed Unive rsity of Dosage [facility] Heamophilus Unknown Completed [facility] Influenza B [facility] Heamophilus Unknown Completed [facility] Influenza B [facility] Heamophilus Unknown Completed [facility] Influenza B [facility] Heamophilus Unknown Completed [facility] Influenza B [facility] Hib-HbOC Unknown Completed [facility] Hib-HbOC Unknown Completed [facility] Hib-HbOC Unknown Completed [facility] Hib-HbOC Unknown Completed [facility] HPV Unknown Completed [facility] HPV Unknown Completed [facility] HPV Unknown Completed [facility] Meningococcal Unknown Completed [facility] (groups A, C, Y and Branc h W-135) conjugate vaccine (MCV4P) MMR Unknown Completed [facility] MMR Unknown Completed [facility] Poliovirus, Live, Unknown Completed Univers ity of Oral, Trivalent [facility] Poliovirus, Live, Unknown Completed Univers ity of Oral, Trivalent [facility] Poliovirus, Live, Unknown Completed Univers ity of Oral, Trivalent [facility] Poliovirus, Live, Unknown Completed Univers ity of Oral, Trivalent [facility] Tetanus/Diptheria Unknown Completed Univers ity [facility] TDAP Unknown Completed [facility] Varicella Unknown Completed University (varivax[facility]chicken [place] [facility] Branch Varicella Unknown Completed [facility] (varivax[facility] [place] [facility] SARS-COV-2 COVID-19 Unknown Completed Unive rsity of PFIZER VACCINE [facility] SARS-COV-2 COVID-19 Unknown Completed Unive rsity of PFIZER VACCINE [facility] DTP Unknown Completed [facility] DTP Unknown Completed [facility] DTP Unknown Completed [facility] DTP Unknown Completed [facility] DTaP, Unspecified Unknown Completed [facility] Formulation [facility] Influenza Virus Unknown Completed [facility] y of Vaccine Quad .5 mL [facility] 6+ MO Branch (FLUZONE/FLULAVAL/FL UARIX) Hep B, Unspecified Unknown Completed [facility]iver [facility] of Formulation [facility] HEPATITIS A Unknown Completed [facility] HEPATITIS A Unknown Completed [facility] Hep B, Unspecified Unknown Completed [facility] Formulation [facility] Hep B, Adol or Pedi Unknown Completed Unive rsity of Dosage [facility] Hep B, Adol or Pedi Unknown Completed [facility]ive rsity of Dosage [facility] Hep B, Adol or Pedi Unknown Completed Unive rsity of Dosage [facility] Heamophilus Unknown Completed [facility] Influenza [facility] Heamophilus Unknown Completed [facility] Influenza B [facility] Heamophilus Unknown Completed [facility] Influenza B [facility] Heamophilus Unknown Completed [facility] Influenza B [facility] Hib-HbOC Unknown Completed [facility] Hib-HbOC Unknown Completed [facility] Hib-HbOC Unknown Completed [facility] Hib-HbOC Unknown Completed [facility] HPV Unknown Completed [facility] HPV Unknown Completed [facility] HPV Unknown Completed [facility] Meningococcal Unknown Completed [facility] (groups A, C, Y and Branc h W-135) conjugate vaccine (MCV4P) MMR Unknown Completed [facility] MMR Unknown Completed [facility] Poliovirus, Live, Unknown Completed Univers ity of Oral, Trivalent [facility] Poliovirus, Live, Unknown Completed [facility] ity of Oral, Trivalent [facility] Poliovirus, Live, Unknown Completed [facility] ity of Oral, Trivalent [facility] Poliovirus, Live, Unknown Completed [facility] ity of Oral, Trivalent [facility] Tetanus/Diptheria Unknown Completed [facility] TDAP Unknown Completed [facility] Varicella Unknown Completed University of (varivax)(chicken [place] [facility] pox) Branch Varicella Unknown Completed University (varivax[facility] [place] [facility] pox[facility] SARS-COV-2 COVID-19 Unknown Completed Unive rsity of PFIZER VACCINE [facility] SARS-COV-2 COVID-19 Unknown Completed Unive rsity of PFIZER VACCINE [facility] DTP Unknown Completed [facility] DTP Unknown Completed [facility] DTP Unknown Completed [facility] DTP Unknown Completed [facility] DTaP, Unspecified Unknown Completed [facility] Formulation [facility] Influenza Virus Unknown Completed [facility]it y of Vaccine Quad .5 mL [facility] IM 6+ MO Branch (FLUZONE/FLULAVAL/FL UARIX) Hep B, Unspecified Unknown Completed Univer sity of Formulation [facility] HEPATITIS A Unknown Completed [facility] HEPATITIS A Unknown Completed [facility] Hep B, Unspecified Unknown Completed [facility]iver [facility]ity of Formulation [facility] Hep B, Adol or Pedi Unknown Completed Unive rsity of Dosage [facility] Hep B, Adol or Pedi Unknown Completed [facility]ive rsity of Dosage [facility] Hep B, Adol or Pedi Unknown Completed [facility]ive rsity of Dosage [facility] Heamophilus Unknown Completed [facility] Influenza [facility] Heamophilus Unknown Completed [facility] Influenza [facility] Heamophilus Unknown Completed [facility] Influenza B [facility] Heamophilus Unknown Completed [facility] Hib-HbOC Unknown Completed [facility] Hib-HbOC Unknown Completed [facility] Hib-HbOC Unknown Completed [facility] Hib-HbOC Unknown Completed [facility] HPV Unknown Completed [facility] HPV Unknown Completed [facility] HPV Unknown Completed [facility] Meningococcal Unknown Completed [facility] (groups A, C, Y and Branc h W-135) conjugate vaccine (MCV4P) MMR Unknown Completed [facility] MMR Unknown Completed [facility] Poliovirus, Live, Unknown Completed Univers ity of Oral, Trivalent [facility] Poliovirus, Live, Unknown Completed [facility]y of Oral, Trivalent [facility] Poliovirus, Live, Unknown Completed [facility] ity of Oral, Trivalent [facility] Poliovirus, Live, Unknown Completed [facility] ity of Oral, Trivalent [facility] Tetanus/Diptheria Unknown Completed [facility] TDAP Unknown Completed [facility] Varicella Unknown Completed University (varivax[facility]icken [place] [facility] pox[facility] Varicella Unknown Completed [facility] (varivax)([facility]icken [place] [facility] pox[facility] SARS-COV-2 COVID-19 Unknown Completed Unive rsity of PFIZER VACCINE [facility] SARS-COV-2 COVID-19 Unknown Completed Unive rsity of PFIZER VACCINE [facility] DTP Unknown Completed [facility] DTP Unknown Completed [facility] DTP Unknown Completed [facility] DTP Unknown Completed [facility] DTaP, Unspecified Unknown Completed [facility] Formulation [facility] Influenza Virus Unknown Completed [facility]it y of Vaccine Quad .5 mL [facility] IM 6+ MO Branch (FLUZONE/FLULAVAL/FL UARIX) Hep B, Unspecified Unknown Completed Univer sity of Formulation [facility] HEPATITIS A Unknown Completed [facility] HEPATITIS A Unknown Completed [facility] Hep B, Unspecified Unknown Completed Univer sity of Formulation [facility] Hep B, Adol or Pedi Unknown Completed Unive rsity of Dosage [facility] Hep B, Adol or Pedi Unknown Completed Unive rsity of Dosage [facility] Hep B, Adol or Pedi Unknown Completed Unive rsity of Dosage [facility] Heamophilus Unknown Completed [facility] Influenza B [facility] Heamophilus Unknown Completed [facility] Influenza B [facility] Heamophilus Unknown Completed [facility] Influenza B [facility] Heamophilus Unknown Completed [facility] Hib-HbOC Unknown Completed [facility] Hib-HbOC Unknown Completed [facility] Hib[facility]HbOC Unknown Completed [facility] Hib-HbOC Unknown Completed [facility] HPV Unknown Completed [facility] HPV Unknown Completed [facility] HPV Unknown Completed [facility] Meningococcal Unknown Completed [facility] (groups A, C, Y and Branc h W-135) conjugate vaccine (MCV4P) MMR Unknown Completed [facility] MMR Unknown Completed [facility] Poliovirus, Live, Unknown Completed Univers ity of Oral, Trivalent [facility] Poliovirus, Live, Unknown Completed [facility] ity of Oral, Trivalent [facility] Poliovirus, Live, Unknown Completed Univers ity of Oral, Trivalent [facility] Poliovirus, Live, Unknown Completed Univers ity of Oral, Trivalent [facility] Tetanus/Diptheria Unknown Completed [facility] TDAP Unknown Completed [facility] Varicella Unknown Completed University (varivax)(chicken [place] [facility] pox) Branch Varicella Unknown Completed [facility] (varivax)(chicken [place] [facility] pox) Branch SARS-COV-2 COVID-19 Unknown Completed Unive rsity of PFIZER VACCINE [facility] SARS-COV-2 COVID-19 Unknown Completed Unive rsity of PFIZER VACCINE [facility] DTP Unknown Completed [facility] DTP Unknown Completed [facility] DTP Unknown Completed [facility] DTP Unknown Completed [facility] DTaP, Unspecified Unknown Completed [facility] Formulation [facility] Influenza Virus Unknown Completed [facility]it y of Vaccine Quad .5 mL [facility] 6+ MO Branch (FLUZONE/FLULAVAL/FL UARIX) Hep B, Unspecified Unknown Completed Univer sity of Formulation [facility] HEPATITIS A Unknown Completed [facility] HEPATITIS A Unknown Completed [facility] Hep B, Unspecified Unknown Completed Univer sity of Formulation [facility] Hep B, Adol or Pedi Unknown Completed Unive rsity of Dosage [facility] Hep B, Adol or Pedi Unknown Completed Unive rsity of Dosage [facility] Hep B, Adol or Pedi Unknown Completed Unive rsity of Dosage [facility] Heamophilus Unknown Completed [facility] Influenza [facility] Heamophilus Unknown Completed [facility] Heamophilus Unknown Completed [facility] Influenza B [facility] Heamophilus Unknown Completed [facility] Hib-HbOC Unknown Completed [facility] Hib-HbOC Unknown Completed [facility] Hib-HbOC Unknown Completed [facility] Hib-HbOC Unknown Completed [facility] HPV Unknown Completed [facility] HPV Unknown Completed [facility] HPV Unknown Completed [facility] Meningococcal Unknown Completed [facility] (groups A, C, Y and Branc h W-135) conjugate vaccine (MCV4P) MMR Unknown Completed [facility] MMR Unknown Completed [facility] Poliovirus, Live, Unknown Completed Univers ity of Oral, Trivalent [facility] Poliovirus, Live, Unknown Completed Univers ity of Oral, Trivalent [facility] Poliovirus, Live, Unknown Completed Univers ity of Oral, Trivalent [facility] Poliovirus, Live, Unknown Completed Univers ity of Oral, Trivalent [facility] Tetanus/Diptheria Unknown Completed [facility] TDAP Unknown Completed [facility] Varicella Unknown Completed University (varivax)(chicken [place] [facility] pox) Branch Varicella Unknown Completed [facility] (varivax)(chicken [place] [facility] pox) Branch PFIZER COVID-19 MRNA Unknown Completed [facility] PFIZER COVID-19 MRNA Unknown Completed [facility] Vital Signs Vital Name Observation Time Observation Value Comments Source Systolic blood 2023-07-05 114 mm[Hg] University of pressure 17:46:17 [facility] Diastolic blood 2023-07-05 94 mm[Hg] University o f pressure 17:46:17 [facility] Heart rate 2023-07-05 93 /min University of 17:46:17 [facility] Body temperature 2023-07-05 37 Alisha University of 17:46:17 [facility] Respiratory rate 2023-07-05 16 /min University of 17:46:17 [facility] Body height 2023-07-05 160 cm University of 17:44:00 [facility] Body weight 2023-07-05 67.586 kg University of 17:44:00 [facility] BMI 2023-07-05 26.39 kg/m2 University of 17:44:00 [facility] Oxygen saturation 2023-07-05 100 /min University of in Arterial blood 17:44:00 [facility] shanice by Pulse oximetry Branch Systolic blood 2023-07-01 116 mm[Hg] University of pressure 16:23:00 [facility] Diastolic blood 2023-07-01 76 mm[Hg] University o f pressure 16:23:00 [facility] Heart rate 2023-07-01 66 /min University of 16:23:00 [facility] Body temperature 2023-07-01 36.28 Alisha University of 16:23:00 [facility] Respiratory rate 2023-07-01 18 /min University of 16:23:00 [facility] Body height 2023-07-01 160 cm University of 16:23:00 [facility] Body weight 2023-07-01 70.852 kg University of 16:23:00 [facility] BMI 2023-07-01 27.67 kg/m2 University of 16:23:00 [facility] Oxygen saturation 2023-07-01 100 /min University of in Arterial blood 16:23:00 [place] [facility] by Pulse oximetry [facility] Systolic blood 2023-06-29 120 mm[Hg] University of pressure 18:40:00 [facility] Diastolic blood 2023-06-29 82 mm[Hg] University o f pressure 18:40:00 [facility] Heart rate 2023-06-29 81 /min University of 18:40:00 [facility] Body temperature 2023-06-29 36.5 Alisha University of 18:40:00 [facility] Respiratory rate 2023-06-29 18 /min University of 18:40:00 [facility] Body height 2023-06-29 160 cm University of 18:40:00 [facility] Body weight 2023-06-29 67.586 kg University of 18:40:00 [facility] BMI 2023-06-29 26.39 kg/m2 University of 18:40:00 [facility] Oxygen saturation 2023-06-29 100 /min University of in Arterial blood 18:40:00 [facility] shanice by Pulse oximetry Branch Systolic blood 2023-06-10 133 mm[Hg] University of pressure 15:38:00 [facility] Diastolic blood 2023-06-10 78 mm[Hg] University o f pressure 15:38:00 [facility] Heart rate 2023-06-10 90 /min University of 15:38:00 [facility] Body height 2023-06-10 160 cm University of 15:38:00 [facility] Body weight 2023-06-10 69.627 kg University of 15:38:00 [facility] BMI 2023-06-10 27.19 kg/m2 University of 15:38:00 [facility] Oxygen saturation 2023-06-10 99 /min University of in Arterial blood 15:38:00 [place] [facility] by Pulse oximetry Branch Systolic blood 2023-03-02 133 mm[Hg] University of pressure 17:25:00 [facility] Diastolic blood 2023-03-02 79 mm[Hg] University o f pressure 17:25:00 [facility] Heart rate 2023-03-02 86 /min University of 17:25:00 [facility] Body temperature 2023-03-02 36.67 Alisha University of 17:25:00 [facility] Respiratory rate 2023-03-02 16 /min University of 17:25:00 [facility] Body height 2023-03-02 160 cm University of 17:25:00 [facility] Body weight 2023-03-02 69.627 kg University of 17:25:00 [facility] BMI 2023-03-02 27.19 kg/m2 University of 17:25:00 [facility] Oxygen saturation 2023-03-02 97 /min University of in Arterial blood 17:25:00 [facility] shanice by Pulse oximetry Branch Systolic blood 2023-01-21 156 mm[Hg] University of pressure 23:13:33 [facility] Diastolic blood 2023-01-21 100 mm[Hg] University o f pressure 23:13:33 [facility] Heart rate 2023-01-21 88 /min University of 23:13:33 [facility] Respiratory rate 2023-01-21 20 /min University of 23:13:33 [facility] Oxygen saturation 2023-01-21 100 /min University of in Arterial blood 23:13:33 [facility] shanice by Pulse oximetry Branch Body height 2023-01-21 160 cm University of 18:44:00 [facility] Body weight 2023-01-21 69.854 kg University of 18:44:00 [facility] BMI 2023-01-21 27.28 kg/m2 University of 18:44:00 [facility] Body temperature 2023-01-21 37.11 Alisha University of 18:43:00 [facility] Systolic blood 2023-01-15 121 mm[Hg] University of pressure 18:01:00 [facility] Diastolic blood 2023-01-15 81 mm[Hg] University o f pressure 18:01:00 [facility] Heart rate 2023-01-15 83 /min University of 18:01:00 [facility] Respiratory rate 2023-01-15 16 /min University of 18:01:00 [facility] Oxygen saturation 2023-01-15 97 /min University of in Arterial blood 18:01:00 [facility] shanice by Pulse oximetry Branch Body temperature 2023-01-15 36.89 Alisha University of 14:55:07 [facility] Body weight 2023-01-15 68.04 kg University of 13:47:00 [facility] BMI 2023-01-15 26.57 kg/m2 University of 13:47:00 [facility] Systolic blood 2023-01-15 131 mm[Hg] University of pressure 10:13:00 [facility] Diastolic blood 2023-01-15 83 mm[Hg] University o f pressure 10:13:00 [facility] Heart rate 2023-01-15 104 /min University of 10:13:00 [facility] Body temperature 2023-01-15 36.94 Alisha University of 10:13:00 [facility] Respiratory rate 2023-01-15 21 /min University of 10:13:00 [facility] Body height 2023-01-15 160 cm University of 10:13:00 [facility] Body weight 2023-01-15 68.04 kg University of 10:13:00 [facility] BMI 2023-01-15 26.57 kg/m2 University of 10:13:00 [facility] Oxygen saturation 2023-01-15 100 /min University of in Arterial blood 10:13:00 [place] [facility] by Pulse oximetry Branch Systolic blood 2022-12-31 128 mm[Hg] University of pressure 05:09:00 [facility] Diastolic blood 2022-12-31 79 mm[Hg] University o f pressure 05:09:00 [facility] Heart rate 2022-12-31 71 /min University of 05:09:00 [facility] Body temperature 2022-12-31 36.78 Alisha University of 05:09:00 [facility] Respiratory rate 2022-12-31 16 /min University of 05:09:00 [facility] Body height 2022-12-31 160 cm University of 05:09:00 [facility] Body weight 2022-12-31 67.586 kg University of 05:09:00 [facility] BMI 2022-12-31 26.39 kg/m2 University of 05:09:00 [facility] Oxygen saturation 2022-12-31 100 /min University of in Arterial blood 05:09:00 [place] [facility] by Pulse oximetry Branch Systolic blood 2022-12-22 132 mm[Hg] University of pressure 13:18:00 [facility] Diastolic blood 2022-12-22 92 mm[Hg] University o f pressure 13:18:00 [facility] Heart rate 2022-12-22 78 /min University of 13:18:00 [facility] Respiratory rate 2022-12-22 18 /min University of 13:18:00 [facility] Body height 2022-12-22 160 cm University of 13:18:00 [facility] Body weight 2022-12-22 69.4 kg University of 13:18:00 [facility] BMI 2022-12-22 27.10 kg/m2 University of 13:18:00 [facility] Systolic blood 2022-12-19 102 mm[Hg] University of pressure 10:00:00 [facility] Diastolic blood 2022-12-19 60 mm[Hg] University o f pressure 10:00:00 [facility] Heart rate 2022-12-19 85 /min University of 10:00:00 [facility] Respiratory rate 2022-12-19 13 /min University of 10:00:00 [facility] Oxygen saturation 2022-12-19 96 /min University of in Arterial blood 10:00:00 [facility] shanice by Pulse oximetry Branch Body temperature 2022-12-19 36.28 Alisha [facility] of 07:30:00 [facility] Body height 2022-12-19 160 cm University of 07:30:00 [facility] Body weight 2022-12-19 67.132 kg University of 07:30:00 [facility] BMI 2022-12-19 26.22 kg/m2 University of 07:30:00 [facility] Systolic blood 2022-12-15 125 mm[Hg] University of pressure 15:48:00 [facility] Diastolic blood 2022-12-15 77 mm[Hg] University o f pressure 15:48:00 [facility] Heart rate 2022-12-15 75 /min University of 15:48:00 [facility] Body height 2022-12-15 160 cm University of 15:48:00 [facility] Body weight 2022-12-15 68.448 kg University of 15:48:00 [facility] BMI 2022-12-15 26.73 kg/m2 University of 15:48:00 [facility] Oxygen saturation 2022-12-15 98 /min University of in Arterial blood 15:48:00 [facility] shanice by Pulse oximetry Branch Systolic blood 2022-12-14 132 mm[Hg] University of pressure 08:04:00 [facility] Diastolic blood 2022-12-14 87 mm[Hg] University o f pressure 08:04:00 [facility] Heart rate 2022-12-14 83 /min University of 08:04:00 [facility] Body temperature 2022-12-14 36.67 Alisha [facility] 08:04:00 [facility] Respiratory rate 2022-12-14 20 /min University of 08:04:00 [facility] Body height 2022-12-14 160 cm University of 08:04: [facility] Body weight 2022-12-14 67.132 kg University of 08:04: [facility] BMI 2022-12-14 26.22 kg/m2 University of 08:04:00 [facility] Oxygen saturation 2022-12-14 97 /min University of in Arterial blood 08:04:00 [facility] by Pulse oximetry Branch Systolic blood 2022-11-03 143 mm[Hg] University of pressure 17:45:00 [facility] Diastolic blood 2022-11-03 89 mm[Hg] University o f pressure 17:45:00 [facility] Heart rate 2022-11-03 89 /min University of 17:45:00 [facility] Respiratory rate 2022-11-03 16 /min University of 17:45:00 [facility] Oxygen saturation 2022-11-03 99 /min [place] of in Arterial blood 17:45:00 [facility] by Pulse oximetry Branch Body temperature 2022-11-03 36.61 Alisha [facility] 14:13:00 [facility] Body height 2022-11-03 160 cm University of 14:13:00 [facility] Body weight 2022-11-03 68.04 kg University of 14:13:00 [facility] BMI 2022-11-03 26.57 kg/m2 University of 14:13:00 [facility] Systolic blood 2022-10-28 115 mm[Hg] University of pressure 21:02:00 [facility] Diastolic blood 2022-10-28 69 mm[Hg] University o f pressure 21:02:00 [facility] Heart rate 2022-10-28 93 /min University of 21:0200 [facility] Body temperature 2022-10-28 36.89 Alisha [facility] 21:02:00 [facility] Body height 2022-10-28 160 cm University of 21:02:00 [facility] Body weight 2022-10-28 70.308 kg University of 21:02:00 [facility] BMI 2022-10-28 27.46 kg/m2 University of 21:02:00 [facility] Oxygen saturation 2022-10-28 100 /min [facility] in Arterial blood 21:02:00 [place] [facility] P[facility] Systolic blood 2022-10-13 133 mm[Hg] University of pressure 07:58:00 [facility] Diastolic blood 2022-10-13 72 mm[Hg] University o f pressure 07:58:00 [facility] Heart rate 2022-10-13 109 /min University of 07:58:00 [facility] Body temperature 2022-10-13 36.78 Alisha [facility] 07:58:00 [facility] Respiratory rate 2022-10-13 16 /min University of 07:58:00 [facility] Body weight 2022-10-13 67.132 kg University of 07:58:00 [facility] BMI 2022-10-13 26.22 kg/m2 University of 07:58:00 [facility] Oxygen saturation 2022-10-13 99 /min University of in Arterial blood 07:58:00 [facility] sh[facility]ice by Pulse oximetry Branch Systolic blood 2022-10-10 120 mm[Hg] University of pressure 00:44:00 [facility] Diastolic blood 2022-10-10 82 mm[Hg] University o f pressure 00:44:00 [facility] Heart rate 2022-10-10 110 /min University of 00:44:00 [facility] Body temperature 2022-10-10 36.33 Alisha [facility] 00:44:00 [facility] Respiratory rate 2022-10-10 18 /min University of 00:44:00 [facility] Body height 2022-10-10 160 cm University of 00:44:00 [facility] Body weight 2022-10-10 67.132 kg University of 00:44:00 [facility] BMI 2022-10-10 26.22 kg/m2 University of 00:44:00 [facility] Oxygen saturation 2022-10-10 99 /min University of in Arterial blood 00:44:00 [facility] shanice by Pulse oximetry Branch Systolic blood 2022-09-10 165 mm[Hg] University of pressure 00:13:00 [facility] Branch Diastolic blood 2022-09-10 99 mm[Hg] University o f pressure 00:13:00 [facility] Heart rate 2022-09-10 125 /min University of 00:13:00 [facility] Body temperature 2022-09-10 36.61 Alisha [facility] of 00:13:00 [facility] Respiratory rate 2022-09-10 20 /min University 00:13:00 [facility] Body weight 2022-09-10 65.772 kg University 00:13:00 [facility] BMI 2022-09-10 25.69 kg/m2 University 00:13:00 [facility] Oxygen saturation 2022-09-10 99 /min University of in Arterial blood 00:13:00 [facility] by Pulse oximetry Branch Systolic blood 2022-08-18 134 mm[Hg] University of pressure 22:36:00 [facility] Diastolic blood 2022-08-18 86 mm[Hg] University o f pressure 22:36:00 [facility] Heart rate 2022-08-18 100 /min University 22:36:00 [facility] Body temperature 2022-08-18 37.11 Alisha [facility] 22:36:00 [facility] Respiratory rate 2022-08-18 20 /min University 22:36:00 [facility] Body height 2022-08-18 160 cm [facility] 22:36:00 [facility] Body weight 2022-08-18 67.132 kg University 22:36:00 [facility] BMI 2022-08-18 26.22 kg/m2 University 22:36:00 [facility] Oxygen saturation 2022-08-18 100 /min [place] of in Arterial blood 22:36:00 [facility] by Pulse oximetry Branch Systolic blood 2022-01-20 123 mm[Hg] [facility] pressure 18:11:00 [facility] Diastolic blood 2022-01-20 85 mm[Hg] [facility] 18:11:00 Hospital Heart rate 2022-01-20 88 /min [facility] 18:11:00 [facility] Body temperature 2022-01-20 36.28 Alisha [facility] 18:11:00 [facility] Respiratory rate 2022-01-20 20 /min [facility] 18:11:00 [facility] Body height 2022-01-20 160 cm [facility] 18:11:00 [facility] Body weight 2022-01-20 66.225 kg [facility] 18:11:00 [facility] BMI 2022-01-20 25.86 kg/m2 [facility] 18:11:00 [facility] Oxygen saturation 2022-01-20 99 /min [facility] in Arterial blood 18:11:00 Hospital by Pulse [...] Systolic blood 2020-01-31 108 mm[Hg] [facility] [place] [facility] pressure 08:57:00 Position: Sitting Diastolic blood 2020-01-31 76 mm[Hg] [facility] [place] [facility] 08:57:00 Position: Sitting Body height 2020-01-31 67 [in_us] [facility] 08:57:00 Weight 2020-01-31 159.375 [lb_av] [facility] 08:57:00 Body mass index 2020-01-31 24.96 kg/m2 [facility] (BMI) [Ratio] 08:57:00 Body temperature 2020-01-31 97.9 [degF] Method: Oral [facility] 08:57:00 Heart Rate 2020-01-31 78 /min [facility] 08:57:00 BP Systolic 2019-06-28 130 mm[Hg] [facility] 16:14:00 Position: Sitting BP Diastolic 2019-06-28 82 mm[Hg] [facility] 16:14:00 Position: Sitting Height 2019-06-28 67 [...] [facility] 16:12:00 Weight 2018-09-07 159 [lb_av] [facility] 16:12:00 Body Mass Index 2018-09-07 24.9 kg/m2 [facility] Calculated 16:12:00 Heart Rate 2018-09-07 109 /min [facility] 16:12:00 Procedures Procedure Date / Time Performing Clinician Source Performed CBC WITH DIFF 2023-07-05 18:17:00 Lazarus [facility] POCT TEST 2023-07-05 18:05:00 Donta Qiu [facility] CONSENT/REFUSAL FOR 2023-07-05 17:29:05 Doctor Unassigned, No Un [facility] DIAGNOSIS AND TREATMENT Name Medical Branch CT ABDOMEN PELVIS W 2023-01-21 21:07:22 Joe Abad [facility] CONTRAST [facility] POCT TEST 2023-01-21 19:34:00 Gutierrez Moncada [facility] LIPASE 2023-01-21 19:32:00 Gutierrez Moncada [facility] TROPONIN I 2023-01-21 19:32:00 Joe Abad [facility] COMP. METABOLIC PANEL 2023-01-21 19:32:00 Gutierrez Moncada [facility] ([id number]) [facility] CBC WITH DIFF 2023-01-21 19:32:00 Gutierrez Moncada [facility] URINALYSIS 2023-01-21 19:32:00 Gutierrez [facility] [place] [facility] CONSENT/REFUSAL FOR 2023-01-21 18:36:13 Doctor Unassigned, No [facility] [place] [facility] Name Medical Branch LIPASE 2023-01-15 14:47:00 Brant Lal [facility] COMP. METABOLIC PANEL 2023-01-15 14:47:00 Brant Lal [facility] ([id number]) Medical Branch CBC WITH DIFF 2023-01-15 14:47:00 Brant Lal [facility] Branch CONSENT/REFUSAL FOR 2023-01-15 13:41:26 Doctor Unassigned, No [facility] [place] DIAGNOSIS AND TREATMENT Name Medical Branch CONSENT/REFUSAL FOR 2023-01-15 10:06:16 Doctor Unassigned, No [facility] [place] DIAGNOSIS AND TREATMENT Name Medical Branch EXTERNAL PROVIDER 2023-01-07 05:01:00 Doctor Unassigned, No [facility] RECORDS Name Medical Branch EXTERNAL PROVIDER 2023-01-04 05:01:00 Doctor Unassigned, No [facility] RECORDS Name Medical Branch CONSENT/REFUSAL FOR 2022-12-31 05:04:15 Doctor Unassigned, No [facility] [place] DIAGNOSIS AND TREATMENT Name Medical Branch CT ANGIOGRAPHY 2022-12-30 17:15:00 Amrit Ma [facility] CORONARIES WITHOUT Medical Bran h CARDIAC CALCIUM SCORING HB CREATININE 2022-12-30 16:24:00 Amrit Ma [facility] SERUM/BLOOD FOR IMAGING Medical Branch CONSENT/REFUSAL FOR 2022-12-30 15:17:01 Doctor Unassigned, No [facility] [place] DIAGNOSIS AND TREATMENT Name Medical Branch EXTERNAL PROVIDER 2022-12-29 05:01:00 Doctor Unassigned, No [facility] RECORDS [facility] Medical Branch AUTHORIZATION TO RELEASE 2022-12-21 05:01:00 Doctor Unassigned, No [facility] PHI TO RUST Name Medical Branch CT ANGIOGRAM CHEST 2022-12-19 09:28:16 Miladys Medina [facility] TROPONIN I 2022-12-19 08:40:00 Miladys Medina [facility] D-DIMER 2022-12-19 08:40:00 Miladys Medina [facility] CONSENT/REFUSAL FOR 2022-12-19 07:30:10 Doctor Unassigned, No [facility] [place] [facility]RE[facility] Name [facility] D-DIMER 2022-12-14 10:47:00 Miladys Medina [facility] TROPONIN I 2022-12-14 10:16:00 Miladys Medina [facility] LIPASE 2022-12-14 08:31:00 Miladys Medina [facility] TROPONIN I 2022-12-14 08:31:00 Miladys Medina [facility] COMP. METABOLIC PANEL 2022-12-14 08:31:00 Miladys Medina [facility] ([id number]) [facility] CBC WITH DIFF 2022-12-14 08:31:00 Miladys Medina [facility] THYROID STIMULATING 2022-12-14 08:31:00 Amrit Ma [facility] HORMONE [facility] NOTICE OF PRIVACY 2022-12-14 07:50:02 Doctor Unassigned, No [facility] PRACTICES [facility] CONSENT/REFUSAL FOR 2022-12-14 07:49:31 Doctor Unassigned, No [facility] URINALYSIS 2022-11-03 15:27:00 Gaurang Dotson [facility] URINE DRUG (IMMUNOASSAY) 2022-11-03 15:27:00 Gaurang Dotson [facility] SCREEN W/O REFLEX TEST, SERUM 2022-11-03 14:38:00 Gaurang Dotson [facility] COMP. METABOLIC PANEL 2022-11-03 14:38:00 Gaurang Dotson [facility] ([id number]) [facility] CBC WITH DIFF 2022-11-03 14:38:00 Gaurang Dotson [facility] D-DIMER 2022-11-03 14:38:00 Gaurang Dotson [facility] CONSENT/REFUSAL FOR 2022-11-03 14:04:36 Doctor [...] Branch MRI LUMBAR SPINE WO 2022-10-07 00:35:00 [facility] CONTRAST MRI CERVICAL SPINE WO 2022-10-07 00:22:00 [facility] CONTRAST CONSENT/REFUSAL FOR 2022-09-10 00:07:30 Doctor Unassigned, No [facility] [place] DIAGNOSIS AND TREATMENT Name Medical Branch CONSENT/REFUSAL FOR 2022-08-18 22:20:24 Doctor Unassigned, No [facility] [place] DIAGNOSIS AND TREATMENT Name Medical Branch CT SPINE EXTERNAL STUDY 2021-11-28 20:02:[address] [facility] CT SPINE EXTERNAL STUDY 2021-11-28 19:57:[address] [facility] CT SPINE EXTERNAL STUDY 2021-11-28 19:52:[address] [facility] REFERRAL- 2021-11-21 05:01:00 Doctor Unassigned, No [facility] [place] REQUEST/RESPONSE Name Medical Branch MRI SPINE EXTERNAL STUDY 2021-10-09 18:17:21 [facility] [QL] CBC (INCLUDES 2020-02-16 00:00:00 [facility] DIFF/PLT) EMB 2020-02-14 00:00:00 [facility] austin Villanueva - Affirm VPIII 2020-02-14 00:00:00 [facility] [...] [facility] Transvaginal and Pelvic Doppler [address] History of [facility] surgery History of [facility] section low transverse Plan of Care Planned Activity Planned Date Details Comments Source Future Scheduled 2023-07-01 Pneumococcal Vaccine: [facility] Test 21:11:54 Pediatrics (0 to 5 Years) and At-Risk Patients (6 to 64 Years) (1 - PCV) [code = Pneumococcal Vaccine: Pediatrics (0 to 5 Years) and At-Risk Patients (6 to 64 Years) (1 - PCV)] Future Scheduled 2023-07-01 Hepatitis C screening [facility] Test 21:11:54 (procedure) [code = 097069787] Future Scheduled 2023-07-01 Screening for [facility] Test 21:11:54 malignant neoplasm of cervix (procedure) [code = 480179587] Future Scheduled 2023-07-01 COVID-19 VACCINE (3 - [facility] Test 21:11:54 season) [code = COVID-19 VACCINE (3 - season)] Future Scheduled 2023-07-01 INFLUENZA VACCINE (#1) [facility] Test 21:11:54 [code = INFLUENZA VACCINE (#1)] Future Scheduled 2023-07-01 Pneumococcal Vaccine: [facility] Test 21:11:54 Pediatrics (0 to 5 Years) and At-Risk Patients (6 to 64 Years) (1 - PCV) [code = Pneumococcal Vaccine: Pediatrics (0 to 5 Years) and At-Risk Patients (6 to 64 Years) (1 - PCV)] Future Scheduled 2023-07-01 Hepatitis C screening [facility] Test 21:11:54 (procedure) [code = 111298403] Future Scheduled 2023-07-01 Screening for [facility] Test 21:11:54 malignant neoplasm of cervix (procedure) [code = 394316275] Future Scheduled 2023-07-01 COVID-19 VACCINE (3 - [facility] Test 21:11:54 season) [code = COVID-19 VACCINE ( season)] Future Scheduled 2023-07-01 INFLUENZA VACCINE (#1) [facility] Test 21:11:54 [code = INFLUENZA VACCINE (#1)] Future Scheduled 2023-07-01 Pneumococcal Vaccine: [facility] Test 21:11:54 Pediatrics (0 to 5 Years) and At-Risk Patients (6 to 64 Years) (1 - PCV) [code = Pneumococcal Vaccine: Pediatrics (0 to 5 Years) and At-Risk Patients (6 to 64 Years) (1 - PCV)] Future Scheduled 2023-07-01 Hepatitis C screening [facility] Test 21:11:54 (procedure) [code = 246522218] Future Scheduled 2023-07-01 Screening for [facility] Test 21:11:54 malignant neoplasm of cervix (procedure) [code = 676973170] Future Scheduled 2023-07-01 COVID-19 VACCINE (3 - [facility] Test 21:11:54 season) [code = COVID-19 VACCINE ( season)] Future Scheduled 2023-07-01 INFLUENZA VACCINE (#1) [facility] Test 21:11:54 [code = INFLUENZA VACCINE (#1)] Future Scheduled 2023-07-01 Pneumococcal Vaccine: [facility] Test 21:11:54 Pediatrics (0 to 5 Years) and At-Risk Patients (6 to 64 Years) (1 - PCV) [code = Pneumococcal Vaccine: Pediatrics (0 to 5 Years) and At-Risk Patients (6 to 64 Years) (1 - PCV)] Future Scheduled 2023-07-01 Hepatitis C screening [facility] Test 21:11:54 (procedure) [code = 356860906] Future Scheduled 2023-07-01 Screening for [facility] Test 21:11:54 malignant neoplasm of cervix (procedure) [code = 013898223] Future Scheduled 2023-07-01 COVID-19 VACCINE (3 - [facility] Test 21:11:54 season) [code = COVID-19 VACCINE ( season)] Future Scheduled 2023-07-01 INFLUENZA VACCINE (#1) [facility] Test 21:11:54 [code = INFLUENZA VACCINE (#1)] Future Scheduled 2023-07-01 Pneumococcal Vaccine: [facility] Test 21:11:54 Pediatrics (0 to 5 Years) and At-Risk Patients (6 to 64 Years) (1 - PCV) [code = Pneumococcal Vaccine: Pediatrics (0 to 5 Years) and At-Risk Patients (6 to 64 Years) (1 - PCV)] Future Scheduled 2023-07-01 Hepatitis C screening [facility] Test 21:11:54 (procedure) [code = 423211357] Future Scheduled 2023-07-01 Screening for [facility] Test 21:11:54 malignant neoplasm of cervix (procedure) [code = 530796512] Future Scheduled 2023-07-01 COVID-19 VACCINE (3 - [facility] Test 21:11:54 ) [code = COVID-19 VACCINE ()] Future Scheduled 2023-07-01 INFLUENZA VACCINE (#1) [facility] Test 21:11:54 [code = INFLUENZA VACCINE (#1)] Future Scheduled 2023-07-01 Pneumococcal Vaccine: [facility] Test 21:11:54 Pediatrics (0 to 5 Years) and At-Risk Patients (6 to 64 Years) (1 - PCV) [code = Pneumococcal Vaccine: Pediatrics (0 to 5 Years) and At-Risk Patients (6 to 64 Years) (1 - PCV)] Future Scheduled 2023-07-01 Hepatitis C screening [facility] Test 21:11:54 (procedure) [code = 951370430] Future Scheduled 2023-07-01 Screening for [facility] Test 21:11:54 malignant neoplasm of cervix (procedure) [code = 091615371] Future Scheduled 2023-07-01 COVID-19 VACCINE (3 - [facility] Test 21:11:54 ) [code = COVID-19 VACCINE ( season)] Future Scheduled 2023-07-01 INFLUENZA VACCINE (#1) [facility] Test 21:11:54 [code = INFLUENZA VACCINE (#1)] Future Scheduled 2023-07-01 Pneumococcal Vaccine: [facility] Test 21:11:54 Pediatrics (0 to 5 Years) and At-Risk Patients (6 to 64 Years) (1 - PCV) [code = Pneumococcal Vaccine: Pediatrics (0 to 5 Years) and At-Risk Patients (6 to 64 Years) (1 - PCV)] Future Scheduled 2023-07-01 Hepatitis C screening [facility] Test 21:11:54 (procedure) [code = 964195334] Future Scheduled 2023-07-01 Screening for [facility] Test 21:11:54 malignant neoplasm of cervix (procedure) [code = 354654885] Future Scheduled 2023-07-01 COVID-19 VACCINE (3 - [facility] Test 21:11:54 ) [code = COVID-19 VACCINE ()] Future Scheduled 2023-07-01 INFLUENZA VACCINE (#1) [facility] Test 21:11:54 [code = INFLUENZA VACCINE (#1)] Future Scheduled 2023-06-18 Pneumococcal Vaccine: [facility] Test 03:36:13 Pediatrics (0 to 5 Years) and At-Risk Patients (6 to 64 Years) (1 - PCV) [code = Pneumococcal Vaccine: Pediatrics (0 to 5 Years) and At-Risk Patients (6 to 64 Years) (1 - PCV)] Future Scheduled 2023-06-18 Hepatitis C screening [facility] Test 03:36:13 (procedure) [code = 543307660] Future Scheduled 2023-06-18 Screening for [facility] Test 03:36:13 malignant neoplasm of cervix (procedure) [code = 719696439] Future Scheduled 2023-06-18 COVID-19 VACCINE (3 - [facility] Test 03:36:13 ) [code = COVID-19 VACCINE ()] Future Scheduled 2023-06-18 INFLUENZA VACCINE (#1) [facility] Test 03:36:13 [code = INFLUENZA VACCINE (#1)] Future Scheduled 2023-06-18 RSV VACCINES > 60 YR [facility] Test 03:36:13 (1 - 1-dose 60+ series) [code = RSV VACCINES > 60 YR (1 - 1-dose 60+ series)] Future Scheduled 2023-06-12 Pneumococcal Vaccine: [facility] Test 08:20:18 Pediatrics (0 to 5 Years) and At-Risk Patients (6 to 64 Years) (1 - PCV) [code = Pneumococcal Vaccine: Pediatrics (0 to 5 Years) and At-Risk Patients (6 to 64 Years) (1 - PCV)] Future Scheduled 2023-06-12 Hepatitis C screening [facility] Test 08:20:18 (procedure) [code = 719244950] Future Scheduled 2023-06-[address] [facility] Test 08:20:18 malignant neoplasm of cervix (procedure) [code = 137678167] Future Scheduled 2023-06-12 COVID-19 VACCINE (3 - [facility] Test 08:20:18 Pfizer series) [code = COVID-19 VACCINE (3 - Pfizer series)] Future Scheduled 2023-06-12 INFLUENZA VACCINE (#1) [facility] Test 08:20:18 [code = INFLUENZA VACCINE (#1)] Future Scheduled 2023-02-19 Pneumococcal Vaccine: [facility] Test 07:49:13 Pediatrics (0 to 5 Years) and At-Risk Patients (6 to 64 Years) (1 - PCV) [code = Pneumococcal Vaccine: Pediatrics (0 to 5 Years) and At-Risk Patients (6 to 64 Years) (1 - PCV)] Future Scheduled 2023-02-19 Hepatitis C screening [facility] Test 07:49:13 (procedure) [code = 113733869] Future Scheduled 2023-02-[address] [facility] Test 07:49:13 malignant neoplasm of cervix (procedure) [code = 485041353] Future Scheduled 2023-02-19 COVID-19 VACCINE (3 - [facility] Test 07:49:13 Pfizer series) [code = COVID-19 VACCINE (3 - Pfizer series)] Future Scheduled 2023-02-19 INFLUENZA VACCINE [facility] Test 07:49:13 [code = INFLUENZA VACCINE] Future Scheduled 2023-02-19 Pneumococcal Vaccine: [facility] Test 07:49:13 Pediatrics (0 to 5 Years) and At-Risk Patients (6 to 64 Years) (1 - PCV) [code = Pneumococcal Vaccine: Pediatrics (0 to 5 Years) and At-Risk Patients (6 to 64 Years) (1 - PCV)] Future Scheduled 2023-02-19 Hepatitis C screening [facility] Test 07:49:13 (procedure) [code = 361836511] Future Scheduled 2023-02-19 Screening for [facility] Test 07:49:13 malignant neoplasm of cervix (procedure) [code = 837044305] Future Scheduled 2023-02-19 COVID-19 VACCINE (3 - [facility] Test 07:49:13 Pfizer series) [code = COVID-19 VACCINE (3 - Pfizer series)] Future Scheduled 2023-02-19 INFLUENZA VACCINE [facility] Test 07:49:13 [code = INFLUENZA VACCINE] Future Scheduled 2023-02-19 Pneumococcal Vaccine: [facility] Test 07:49:13 Pediatrics (0 to 5 Years) and At-Risk Patients (6 to 64 Years) (1 - PCV) [code = Pneumococcal Vaccine: Pediatrics (0 to 5 Years) and At-Risk Patients (6 to 64 Years) (1 - PCV)] Future Scheduled 2023-02-19 Hepatitis C screening [facility] Test 07:49:13 (procedure) [code = 985821924] Future Scheduled 2023-02-19 Screening for [facility] Test 07:49:13 malignant neoplasm of cervix (procedure) [code = 103959716] Future Scheduled 2023-02-19 COVID-19 VACCINE (3 - [facility] Test 07:49:13 Pfizer series) [code = COVID-19 VACCINE (3 - Pfizer series)] Future Scheduled 2023-02-19 INFLUENZA VACCINE Method [facility] [facility] Test 07:49:13 [code = INFLUENZA VACCINE] Future Scheduled 2023-02-19 Pneumococcal Vaccine: [facility] Test 07:49:13 Pediatrics (0 to 5 Years) and At-Risk Patients (6 to 64 Years) (1 - PCV) [code = Pneumococcal Vaccine: Pediatrics (0 to 5 Years) and At-Risk Patients (6 to 64 Years) (1 - PCV)] Future Scheduled 2023-02-19 [facility] 07[facility]13 (procedure) [code = 148892092] Future Scheduled 2023-02-19 [facility] Test 07:49:13 malignant neoplasm of cervix (procedure) [code = 153069283] Future Scheduled 2023-02-19 COVID-19 VACCINE (3 - [facility] Test 07:49:13 Pfizer series) [code = COVID-19 VACCINE (3 - Pfizer series)] Future Scheduled 2023-02-19 INFLUENZA VACCINE Method [facility] Hospital Test 07:49:13 [code = INFLUENZA VACCINE] Future Scheduled 2022-12-30 [facility] 10:15:19 Pediatrics (0 to 5 Years) and At-Risk Patients (6 to 64 Years) (1 - PCV) [code = Pneumococcal Vaccine: Pediatrics (0 to 5 Years) and At-Risk Patients (6 to 64 Years) (1 - PCV)] Future Scheduled 2022-12-30 [facility] 10:15:19 (procedure) [code = 017749577] Future Scheduled 2022-12-30 [facility] Test 10:15:19 malignant neoplasm of cervix (procedure) [code = 928237379] Future Scheduled 2022-12-30 COVID-19 VACCINE (3 - [facility] Test 10:15:19 Booster for Pfizer series) [code = COVID-19 VACCINE (3 - Booster for Pfizer series)] Future Scheduled 2022-12-30 INFLUENZA VACCINE [facility] Test 10:15:19 [code = INFLUENZA VACCINE] Future Scheduled 2022-12-30 Pneumococcal Vaccine: [facility] Test 10:15:19 Pediatrics (0 to 5 Years) and At-Risk Patients (6 to 64 Years) (1 - PCV) [code = Pneumococcal Vaccine: Pediatrics (0 to 5 Years) and At-Risk Patients (6 to 64 Years) (1 - PCV)] Future Scheduled 2022-12-30 Hepatitis C screening [facility] Test 10:15:19 (procedure) [code = 180887506] Future Scheduled 2022-12-30 [facility] Test 10:15:19 malignant neoplasm of cervix (procedure) [code = 014260451] Future Scheduled 2022-12-30 COVID-19 VACCINE (3 - [facility] Test 10:15:19 Booster for Pfizer series) [code = COVID-19 VACCINE (3 - Booster for Pfizer series)] Future Scheduled 2022-12-30 [facility] Test 10:15:19 [code = INFLUENZA VACCINE] Future Scheduled 2022-12-30 Pneumococcal Vaccine: [facility] Test 10:15:19 Pediatrics (0 to 5 Years) and At-Risk Patients (6 to 64 Years) (1 - PCV) [code = Pneumococcal Vaccine: Pediatrics (0 to 5 Years) and At-Risk Patients (6 to 64 Years) (1 - PCV)] Future Scheduled 2022-12-30 Hepatitis C screening [facility] Test 10:15:19 (procedure) [code = 802722439] Future Scheduled 2022-12-30 [facility] Test 10:15:19 malignant neoplasm of cervix (procedure) [code = 100874027] Future Scheduled 2022-12-30 COVID-19 VACCINE (3 - [facility] Test 10:15:19 Booster for Pfizer series) [code = COVID-19 VACCINE (3 - Booster for Pfizer series)] Future Scheduled 2022-12-30 [facility]ZA [facility]ACCINE [facility] Test 10:15:19 [code = INFLUENZA VACCINE] Future Scheduled 2022-08-02 Pneumococcal Vaccine: [facility] Test 11:23:36 Pediatrics (0 to 5 Years) and At-Risk Patients (6 to 64 Years) (1 - PCV) [code = Pneumococcal Vaccine: Pediatrics (0 to 5 Years) and At-Risk Patients (6 to 64 Years) (1 - PCV)] Future Scheduled 2022-08-02 Hepatitis C screening [facility] Test 11:23:36 (procedure) [code = 329644350] Future Scheduled 2022-08-02 [facility] Test 11:23:36 malignant neoplasm of cervix (procedure) [code = 989291115] Future Scheduled 2022-08-02 COVID-19 VACCINE (3 - [facility] Test 11:23:36 Booster for Pfizer series) [code = COVID-19 VACCINE (3 - Booster for Pfizer series)] Future Scheduled 2022-08-02 [facility]ZA [facility]ACCINE [facility] 11:23:36 [code = INFLUENZA VACCINE] Future Scheduled 2022-07-24 Pneumococcal Vaccine: [facility] Test 21:51:51 Pediatrics (0 to 5 Years) and At-Risk Patients (6 to 64 Years) (1 - PCV) [code = Pneumococcal Vaccine: Pediatrics (0 to 5 Years) and At-Risk Patients (6 to 64 Years) (1 - PCV)] Future Scheduled 2022-07-24 Hepatitis C screening [facility] Test 21:51:51 (procedure) [code = 761454236] Future Scheduled 2022-07-24 [facility] Test 21:51:51 malignant neoplasm of cervix (procedure) [code = 225817092] Future Scheduled 2022-07-24 COVID-19 VACCINE (3 - [facility] Test 21:51:51 Booster for Pfizer series) [code = COVID-19 VACCINE (3 - Booster for Pfizer series)] Future Scheduled 2022-07-24 [facility]ZA [facility]ACCINE [facility] 21:51:51 [code = INFLUENZA VACCINE] Future Scheduled 2022-07-15 Pneumococcal Vaccine: [facility] Test 15:03:03 Pediatrics (0 to 5 Years) and At-Risk Patients (6 to 64 Years) (1 - PCV) [code = Pneumococcal Vaccine: Pediatrics (0 to 5 Years) and At-Risk Patients (6 to 64 Years) (1 - PCV)] Future Scheduled 2022-07-15 Hepatitis C screening [facility] Test 15:03:03 (procedure) [code = 208195737] Future Scheduled 2022-07-15 [facility] Test 15:03:03 malignant neoplasm of cervix (procedure) [code = 816033341] Future Scheduled 2022-07-15 COVID-19 VACCINE (3 - [facility] Test 15:03:03 Booster for Pfizer series) [code = COVID-19 VACCINE (3 - Booster for Pfizer series)] Future Scheduled 2022-07-15 INFLUENZA VACCINE [facility] Test 15:03:03 [code = INFLUENZA VACCINE] Future Scheduled 2022 Pneumococcal Vaccine: [facility] Test 09:54:03 Pediatrics (0 to 5 Years) and At-Risk Patients (6 to 64 Years) (1 - PCV) [code = Pneumococcal Vaccine: Pediatrics (0 to 5 Years) and At-Risk Patients (6 to 64 Years) (1 - PCV)] Future Scheduled 2022 Hepatitis C screening [facility] Test 09:54:03 (procedure) [code = 143183538] Future Scheduled 2022 [facility] Test 09:54:03 malignant neoplasm of cervix (procedure) [code = 865023971] Future Scheduled 2022 COVID-19 VACCINE (3 - [facility] Test 09:54:03 Booster for Pfizer series) [code = COVID-19 VACCINE (3 - Booster for Pfizer series)] Future Scheduled 2022 INFLUENZA VACCINE [facility] Test 09:54:03 [code = INFLUENZA VACCINE] Encounters Start End Encounter Admission Attending Care Care Encounter Source Date/Time Date/Time Type Type Clinicians Facility Department ID 2021-07-06 Emergency [facility] [id number] [facility] [id number] [facility]-07[facility]04 Emergency [facility] [id number] Univers 10:48:55 [facility] 2021-01-09 Inpatient HCACL MALISSA [id number] [facility] 10:52:00 [id number] [facility] 2020-12-27 Inpatient [facility] MALISSA [id number] [facility] 20:29:00 65 [facility] 2020-12-26 Inpatient CLAUDETTE Escobar, [facility] ENDO [id number] [facility] 10:00:00 Rik 01 [facility] 2020-12-22 Inpatient [facility] [id number] [facility] 23:08:15 49 [facility] 2020-08-23 Inpatient [facility] MALISSA [id number] [facility] 09:10:00 26 [facility] 2020-08-05 Inpatient HCACL MALISSA [id number] [facility] 20:55:00 [id number] [facility] 2020-02-20 Outpatient KRISTIN [facility] [id number] M [facility] 10:04:01 LISHA 2023-08-16 2023-08-16 Outpatient MOOKIE TORRES [facility] [id number] Univers 12:00:00 12:00:[address] [facility] 2023-07-23 2023-07-23 Outpatient Anton ESPINOZA [facility] [id number] Univers 13:00:00 13:00:[address] [facility] 2023-07-20 2023-07-20 Telephone Patrick RUST 1.2.840.114 [id number] Univers 00:00:00 00:00:00 [facility] 350.1.13.10 ity of [place] 4.2.7.2.686 Zay as BLANCA?BLEA [phone] [facility] [address] MEDICAL OFFICE [facility] 2023-07-16 2023-07-16 Outpatient R MARINA BERG [facility] [id number] Univers 14:00:00 14:00:00 MARINA BERG [facility] 2023-07-09 2023-07-09 Outpatient R MOOKIE HOUSTON [facility] [id number] Univers 10:00:00 10:00:00 MOOKIE HOUSTON [facility] 2023-07-05 2023-07-05 Emergency [facility] ERT [id number] Univers 12:50:00 14:12:00 DONAT [facility] 2023-07-05 2023-07-05 Emergency [facility] 1.2.846.267 [id number] Univers 12:50:00 14:12:00 Dontabhavin [facility] 350.1.13.10 i ty of [place] [phone] [facility] [address] 2023-07-04 2023-07-04 Patient Doctor RUST 1.2.840.114 [id number] Univers 00:00:00 00:00:00 Secure Msg Unassigned, HEALTH 350.1.13.10 ity of [place] 4.2.7.2.686 Zay as BLANCA?BLEA [phone] [facility] [address] MEDICAL OFFICE [facility] 2023-07-02 2023-07-02 Telephone [facility] 1.2.840.114 [id number] Univers 00:00:00 00:00:00 Rania HEALTH 350.1.13.10 it y of [place] 4.2.7.2.686 Zay as BLANCA?BLEA [phone] [facility] [address] MEDICAL OFFICE [facility] 2023-07-02 2023-07-02 Clinic [facility] 1.2.937.064 [id number] [facility] 00:00:00 00:00:[address] [facility] 350.1.13.10 ity of [place] 4.2.7.2.686 Zay as BLANCA?BLEA [id number] [facility] [address] OFFICE [facility] 2023-07-01 2023-07-01 Outpatient R JOSE [facility] [id number] Univers 11:00:00 11:39:[address] [facility] 2023-07-01 2023-07-01 [facility] 1..840.11 4 [id number] [facility] 11:00:00 11:39:48 Care Unknown, Attending [place] [address]..13.10 ity [facility] 4.2.7.2.686 Zay as BLANCA?BLEA [id number] [address] 2023-06-29 2023-06-29 Outpatient R JOSE [facility] [id number] Univers 13:20:00 14:35:47 DEVANG [facility] 2023-06-29 2023-06-29 Urgent Ronaldophilly [facility] 1.2.840.11 4 [id number] Univers 13:20:00 14:35:47 Care Unknown, [place] [address]..13.10 ity of [place] 4.2.7.2.686 Zay as BLANCA?BLEA [id number] [address] OFFICE [facility] 2023-06-29 2023-06-29 Outpatient CLAUDETTE Parks SALENA KENNEY [id number] [facility] 12:00:00 12:00:[address] 2023-06-10 2023-06-10 Outpatient MARINA WISDOM [facility] [id number] Univers 10:40:00 11:18:[address] [facility] 2023-06-10 2023-06-10 Office Junior RUST 1.2.840.114 [id number] Univers 10:40:00 11:18:23 Visit [facility] 350.1.13.10 ity of [place] 4.2.7.2.686 Zay as BLANCA?BLEA [phone] De dicenid VERASEY [address] MEDICAL OFFICE [facility] 2023-06-10 2023-06-10 Patient Ruth RUST 1.2.840.114 [id number] Univers 00:00:00 00:00:00 Outreach Mindy R YOLANDA 350.1.13.10 ity of [facility] 4.2.7.2.686 [place] [phone] [facility] NAL [address] [place] [address] 2023-06-10 2023-06-10 Patient Doctor SUDHA 1.2.840.114 [id number] Univers 00:00:00 00:00:00 Secure Msg Unassigned, ORA 350.1.13.10 [facility] 4.2.7.2.686 Zay as [phone] [address] 2023-06-08 2023-06-08 Outpatient R [facility] [id number] Univers 11:30:00 11:30:[address] [facility] 2023-05-27 2023-05-27 [facility] 1.2.258.985 [id number] Univers 00:00:00 00:00:00 Amrit GUERRERO 350.1.13.10 ity of [place] [phone] De dicmi NAL 9 [facility] 2023-05-25 2023-05-25 [facility]phone [facility] 1.2.662.744 [id number] Univers 00:00:00 00:00:00 Amrit GUERRERO 350.1.13.10 ity of [place] 4[place].7.2.[place] [id number] De dicmi NAL 9 [facility] 2023-05-24 2023-05-24 Telephone [facility] 1.2.342.912 [id number] Univers 00:00:00 00:00:00 Sendgerman GUERRERO 350.1.13.10 ity of [place] 4.2.7.2.686 [place] PROFBRITTNIIO [phone] [facility] 059 [facility] 2023-05-19 2023-05-19 Telephone [facility] 1.2.840.114 [id number] Univers 00:00:00 00:00:00 Kayley AGNDARA 350.1.13.10 it y of [place] 4.2.7.2.[place] [phone] [place] [address] [address] 2023-03-02 2023-03-02 Urgent Tami Alas RUST 1.2.840.114 1 [id number] Univers 12:00:00 12:20:00 Care Unknown, Attending HEALTH 350.1.13.10 ity of [facility] 4.2.7.2.686 Zay as BLANCA?BLEA [id number] [address] OFFICE [facility] 2023-03-02 2023-03-02 Outpatient R [facility] [id number] Univers 12:00:00 12:00:[address] [facility] 2023-03-02 2023-03-02 Frandy [facility] 1.2.840.114 [id number] Univers 00:00:00 00:00:00 (Out) [facility] 350.1.13.10 it y of [place] 4.2.7.2.686 Zay as BLANCA?BLEA [phone] [address] OFFICE [facility] 2023-01-21 2023-01-21 Emergency X [facility] ERT [id number] Univers 13:46:00 18:49:[address] [facility] 2023-01-21 2023-01-21 Emergency [facility] 1.2.525.837 [id number] Univers 13:46:00 18:49:00 [facility] 350.1.13.10 it y of [place].2.[place] [phone] [address] ([facility]) 2023-01-21 2023-01-21 Outpatient R KRISTY [facility] [id number] Univers 13:30:00 13:30:[address] [facility] 2023-01-15 2023-01-15 Emergency X MEDINA RUST ERT [id number] Univers 08:50:00 13:10:[address] [facility] 2023-01-15 2023-01-15 Emergency [facility] 1.2.458.127 [id number] Univers 08:50:00 13:10:00 Brant GUERRERO 350.1.13.10 i ty of [place] 4.2.7.2.[place] [id number] [address] 2023-01-15 2023-01-15 Outpatient R COURTNEYKENZIE [facility] [id number] Univers 09:00:00 09:00:00 [facility] 2023-01-15 2023-01-15 Emergency X JAGRUTI RUST ERT [id number] Univers 05:24:00 06:28:00 MILADYS [facility] 2023-01-15 2023-01-15 Emergency [facility] 1.2.142.656 [id number] Univers 05:24:00 06:28:00 Miladys GARNERJUAREZ 350.1.13.10 ity of [place] 4.2.7.2.[place] [phone] [address] 2023-01-12 2023-01-12 Outpatient R FRITZ [facility] [id number] Univers 10:30:00 10:30:00 JUANY [facility] 2023-01-08 2023-01-08 Outpatient R FRANCESCA [facility] [id number] Univers 08:00:00 08:00:00 SENDGERAMN [facility] 2023-01-07 2023-01-07 Orders Doctor HALEY 1.2.840.114 [id number] Univers 00:00:00 00:00:00 Only Unassigned, ALEM 350.1.13.10 ity of [place] [facility] 4.2.7.2.686 Zay as [id number] [facility] [address] 2023-01-04 2023-01-04 Orders Doctor SUDHA 1.2.840.114 [id number] Univers 00:00:00 00:00:00 Only Unassigned, ALEM 350.1.13.10 ity of [place] [facility] 4.2.7.2.686 Zay as [id number] [facility] [address] 2023-01-04 2023-01-04 Telephone [facility] 1.2.746.186 [id number] Univers 00:00:00 00:00:00 [facility] 350.1.13.10 it y of [place] 4.2.7.2.686 [facility] - [phone] Med ical [facility] [address] 2023-01-01 2023-01-01 Telephone [facility] 1.2.840.11 4 [id number] Univers 00:00:00 00:00:00 Angieoctavio NICHOL 350.1.13.10 it y of WOMEN'S 4.2.7.2.686 [facility] [id number] [facility] [address] 2022-12-31 2022-12-31 Emergency X NADEEM K RUST ERT [id number] Univers 00:13:00 01:07:00 ity of [facility] 2022-12-31 2022-12-31 Emergency Jasmin Gregorio RUST 1.2.840.114 [id number] Univers 00:13:00 01:07:00 Filomena GUERRERO 350.1.13.10 i ty of [place] 4.2.7.2.686 [facility] [id number] [facility] [address] 2022-12-31 2022-12-31 Telephone [facility] 1.2.737.668 [id number] Univers 00:00:00 00:00:00 Amrit GUERRERO 350.1.13.10 ity of [place] 4.2.7.2.686 [facility] [phone] De dical NAL [address] [facility] 2022-12-31 2022-12-31 Patient Doctor SUDHA 1.2.840.114 [id number] Univers 00:00:00 00:00:00 Secure Msg Unassigned, ALEM 350.1.13.10 ity of [place] [facility] 4.2.7.2.686 [facility] [id number] [facility] [address] 2022-12-30 2022-12-[address] [facility] 1.2.840.114 [id number] Univers 10:38:24 23:59:00 Encounter Amrit GUERRERO 350.1.13.10 ity of [place] 4.2.7.2.686 [facility] [id number] [facility] [address] 2022-12-30 2022-12-30 Outpatient R [facility]CAM[facility]CY [facility] [id number] Univers 10:38:24 23:59:[address] [facility] 2022-12-30 2022-12-30 Emergency X [facility] ERT [id number] Univers 10:21:00 10:33:00 [facility] 2022-12-30 2022-12-30 Emergency [facility] 1.2.840.114 10 [id number] Univers 10:21:00 10:33:00 Awilda GUERRERO 350.1.13.10 ity of [place] 4.2.7.2.[address] [place] [address] [phone] [facility] [address] 2022-12-30 2022-12-[address] [facility] 1.2.840.11 4 [id number] Univers 00:00:00 00:00:00 Jorge GANDARA 350.1.13.10 it y of WOMEN'S 4.2.7.2.686 [facility] [id number] [facility] [address] 2022-12-29 2022-12-29 Outpatient R JORGE CHANDRA [facility] B [id number] Univers 13:30:00 13:30:[address] [facility] 2022-12-29 2022-12-29 Orders Doctor HALEY 1.2.840.114 [id number] Univers 00:00:00 00:00:00 Only Unassigned, ALEM 350.1.13.10 ity of [place] [facility] 4.2.7.2.686 Zay as [id number] [facility] [address] 2022-12-29 2022-12-29 Telephone [facility] 1.2.929.415 [id number] Univers 00:00:00 00:00:00 Juany HEALTH 350.1.13.10 it y of [place].7.2.[place] - [phone] [facility] [address] 2022-12-28 2022-12-28 Telephone [facility] 1.2.497.479 [id number] Univers 00:00:00 00:00:00 Juany HEALTH 350.1.13.10 it y of [place] 4.2.7.2.[place] - [id number] [facility] [address] 2022-12-25 2022-12-25 Patient Graciela RUST 1.2.840.114 [id number] Univers 00:00:00 00:00:00 Secure Msg [facility] 350.1.13.10 ity of [place] 4.2.7.2.686 Zay as BLANCA?BLEA [phone] De denilson [place] [address] MEDICAL OFFICE BUILDING 2022-12-23 2022-12-23 Telephone Sammie [facility] 1.2.840.11 4 [id number] Univers 00:00:00 00:00:00 Jorge GANDARA 350.1.13.10 it y of [place] [id number] [facility] [address] 2022-12-23 2022-12-23 Patient Gurpreet RUST 1.2.840.114 [id number] Univers 00:00:00 00:00:00 Secure Msg Norberto GUERRERO 350.1.13.10 ity of [place] [id number] De denilson [facility] [address] BUILDING 2022-12-22 2022-12-22 [facility], Ang - Db RUST 1.2.840.1 14 [id number] Univers 09:30:00 09:45:00 Visit Jorge Chandra 350.1.13.1 0 ity of [facility] 4.2.7.2.686 Zay as BLANCA?BLEA [id number] De denilson [place] [address] [place] [address] MEDICAL OFFICE BUILDING 2022-12-22 2022-12-22 Office Sammie [facility] 1.2.840.114 [id number] Univers 08:00:00 08:53:38 Visit Jorge GANDARA 350.1.13.10 it y of WOM[facility]'S 4.2.7.2.686 [facility] [id number] [facility] [address] 2022-12-22 2022-12-22 Outpatient R JORGE CHANDRA [facility] B [id number] Univers 08:00:00 08:53:38 TRIJORGE RUTLEDGE [facility] 2022-12-22 2022-12-22 Patient Doctor SUDHA 1.2.840.114 [id number] Univers 00:00:00 00:00:00 Secure Msg Unassigned, ALEM 350.1.13.10 ity of [place] [facility]ITAL 4.2.7.2.686 Zay as [id number] [facility] [address] 2022-12-21 2022-12-21 Orders Doctor SUDHA 1.2.840.114 [id number] Univers 00:00:00 00:00:00 Only Unassigned, ALEM 350.1.13.10 ity of [place] HOSPITAL 4.2.7.2.686 Zay as [id number] [facility] [address] 2022-12-19 2022-12-19 Emergency X [facility] ERT [id number] Univers 02:32:00 05:47:[address] [facility] 2022-12-19 2022-12-19 Emergency [facility] 1.2.543.156 [id number] Univers 02:32:00 05:47:00 Miladys S YOLANDA 350.1.13.10 ity of [place].7.2.[place] [id number] [facility] [address] 2022-12-18 2022-12-18 Outpatient R KENZIE BADILLO [facility] [id number] Univers 09:45:00 09:45:00 ity of [facility] 2022-12-17 2022-12-17 Telephone Kenzie Badillo RUST 1.2.840.114 [id number] Univers 00:00:00 00:00:00 E HEALTH [id number] it y of CANCER [id number] [facility] [phone] Med ical MDA [address] 2022-12-15 2022-12-15 Outpatient R FRANCESCA [facility] [id number] Univers 11:00:00 11:30:[address] [facility] 2022-12-15 2022-12-15 [facility] [id number] Univers 11:00:00 11:30:30 Visit Sendil Ismael GUERRERO [id number] ity of [facility] [id number] [facility] [phone] De dic[address] 2022-12-15 2022-12-15 Telephone [facility] [id number] Univers 00:00:00 00:00:00 Sendil Ismael GUERRERO [id number] ity of [place] [id number] [facility] [phone] De dicmi NAL [address] [place] [address] 2022-12-14 2022-12-14 Emergency X [facility] ERT [id number] Univers 03:03:00 07:05:00 WAKILI ity of [facility] 2022-12-14 2022-12-14 Emergency [facility] 1.2.715.533 8768 [id number] Univers 03:03:00 07:05:00 Miladys GUERRERO 350.1.13.10 ity of [place].7.2.686 [place] [id number] [facility] [address] 2022-11-03 2022-11-03 Emergency [facility] E[facility] [id number] Univers 08:15:00 12:05:00 GAURANG ity of [facility] 2022-11-03 2022-11-03 Emergency [facility] 1.2.783.178 3504 42026 Univers 08:15:00 12:05:00 Gaurang GUERRERO 350.1.13.10 i ty of [facility] 4.2.7.2.686 [place] [facility] [id number] [facility] [address] 2022-10-28 2022-10-28 Outpatient R GRACIELA [facility] [id number] Univers 15:00:00 15:28:11 KAYLEY ity of [facility] 2022-10-28 2022-10-28 Office [facility] 1.2.840.114 [id number] 822 Univers 15:00:00 15:28:11 Visit [facility] 350.1.13.10 it y of [facility] 4.2.7.2.686 Zay as BLANCA?BLEA [id number] [address] OFFICE [facility] 2022-10-28 2022-10-28 Orders Doctor SUDHA 1.2.840.114 [id number] Univers 00:00:00 00:00:00 Only Unassigned, ALEM 350.1.13.10 ity of [place] [facility] 4.2.7.2.686 Zay as [id number] [facility] [address] 2022-10-28 2022-10-28 Abstract [facility] 1.2.840.114 [id number] Univers 00:00:00 00:00:00 Kayley [facility] 350.1.13.10 it y of [facility] 4.2.7.2.686 Zay as BLANCA?BLEA [phone] [address] MEDICAL OFFICE [facility] 2022-10-28 2022-10-28 Patient Henry RUST 1.2.840.114 [id number] 012 Univers 00:00:00 00:00:00 Outreach Florence CISNEROS 350.1.13.10 i ty of [place] 4.2.7.2.686 Zay as BLANCA?BLEA [id number] [address] OFFICE [facility] 2022-10-28 2022-10-28 Telephone Henry RUST 1.2.215.538 [id number] [id number] Univers 00:00:00 00:00:00 Phylicia GUERRERO 350.1.13.10 i ty of [place].2.7.2.686 [place] [facility] [id number] De dical [facility] 044 [facility] 2022-10-13 2022-10-13 Emergency X [facility]KE [facility] ERT [id number] Univers 01:56:00 02:55:[address] [facility] 2022-10-13 2022-10-13 Emergency [facility] 1.2.655.519 9317 69381 Univers 01:56:00 02:55:00 Calvin Austin GUERRERO 350.1.13.10 ity of [place] 4.2.7.2.686 [place] [phone] [address] 2022-10-09 2022-10-09 Emergency X [facility] ERT [id number] Univers 18:46:00 19:00:[address] [facility] 2022-10-09 2022-10-09 Emergency [facility] 1.2.610.829 1195 43264 Univers 18:46:00 19:00:00 Brant GUERRERO 350.1.13.10 i ty of [place]2.7.2.[place] [id number] [address] 2022-10-09 2022-10-09 Orders Doctor SUDHA 1.2.840.114 [id number] 996 Univers 00:00:00 00:00:00 Only Unassigned, ALEM 350.1.13.10 ity of [place] [facility] 4.2.7.2.686 Zay as [phone] [facility] [address] 2022-10-06 2022-10-06 Located Within [facility], 1.2.840.1 [id number] 804 [id number] Methodi 17:35:51 23:59:00 Encounter Jorge Luis 82061.1.1 997 s t 3.430.2.7 Hospit a .3.332951 l .8 2022-10-06 2022-10-06 Located Within [facility], 1.2.840.1 [id number] 724 [id number] Methodi 17:35:51 23:59:00 Encounter Jorge Luis 00381.1.1 997 s t 3.430.2.7 Hospit a .3.199487 l .8 2022-10-06 2022-10-06 Located Within [facility], 1.2.840.1 [id number] 784 [id number] Methodi 17:35:36 23:59:00 Encounter Jorge Luis 55305.1.1 999 s t 3.430.2.7 Hospit a .3.055722 l .8 2022-10-06 2022-10-06 Located Within [facility], 1.2.840.1 [id number] 986 [id number] Methodi 17:35:36 23:59:00 Encounter Jorge Luis 32443.1.1 999 s t 3.430.2.7 Hospit a .3.891955 l .8 2022-10-06 2022-10-06 Travel 1.2.840.1 1.2.961.796 5977 510488 Methodi 00:00:00 00:00:[address] 3.430.2.7 0.2.7.3.698 Ho spita .3.242478 084.8 l .8 2022-10-06 2022-10-06 Travel 1.2.840.1 1.2.189.532 8104 099357 Methodi 00:00:00 00:00:[address] 3.430.2.7 0.2.7.3.698 Ho spita .3.762945 084.8 l .8 2022-09-09 2022-09-09 Emergency X KEATING, RUST ERT [id number] 724 Univers 18:15:00 19:35:[address] [facility] 2022-09-09 2022-09-09 Emergency Keating, RUST 1.2.840.114 [id number] 63586 Univers 18:15:00 19:35:00 Naty GUERRERO 350.1.13.10 i ty of [place] 4.2.7.2.686 [facility] [id number] [facility] 0[address] 2022-08-18 2022-08-18 Emergency X SINGER RUST ERT [id number] Univers 16:38:00 17:44:[address] [facility] 2022-08-18 2022-08-18 Emergency [facility] 1.2.036.082 6933 1453 Univers 16:38:00 17:44:00 Huy GUERRERO 350.1.13.10 i ty of [place] 4.2.7.2.686 [facility] [id number] [facility] 0[address] 2022-08-07 2022-08-08 Inpatient CLAUDETTE Tyler, [facility].01 [id number] [facility] 14:50:00 12:01:00 Gianna 40 [facility] 2022-08-03 2022-08-03 Emergency EM Ernesto, [facility] AERS [id number] [facility] 14:26:00 16:02:00 Roro 86 [facility] 2022-07-23 2022-07-23 Located Within [facility], 1.2.840.1 [id number] 156 [id number] Methodi 10:30:00 10:30:00 Encounter Jorge Luis 83220.1.1 209 s t 3.430.2.7 Hospit a .3.904113 l .8 2022-07-23 2022-07-23 Telephone Jemal, 1.2.840.1 [id number] 2099 [id number] Methodi 00:00:00 00:00:[address] 3.430.2.7 Hospit a .3.848277 l .8 2022-07-23 2022-07-23 Telephone Jemal, 1.2.840.1 [id number] 2099 961882 Methodi 00:00:00 00:00:[address] 3.430.2.7 Hospit a .3.008961 l .8 2022-07-07 2022-07-07 Outpatient ROSITA DILL [id number] [address] [place] [address] 10:45:00 10:45:00 ELBERT alvarez 2022-07-06 2022-07-06 Travel 1.2.840.1 1.2.037.554 5020 209174 Methodi 00:00:00 00:00:[address] 3.430.2.7 0.2.7.3.698 Ho spita .3.292442 084.8 l .8 2022-06-15 2022-06-16 [facility], 1.2.840.1 [id number] 2100 825931 Methodi 14:15:00 11:08:59 Visit Jorge Luis 08650.1.[address] 3.430.2.7 Hospit a .3.818502 l .8 2022-06-15 2022-06-15 Located Within [facility], 1.2.840.1 [id number] 177 [id number] Methodi 14:15:15 23:59:00 Encounter Jorge Luis 67553.1.1 971 s t 3.430.2.7 Hospit a .3.789497 l .8 2022-06-15 2022-06-15 Located Within [facility], 1.2.840.1 [id number] 152 5971778 Methodi 14:15:13 23:59:00 Encounter Jorge Luis 82236.1.1 963 s t 3.430.2.7 Hospit a .3.539305 l .8 2022-06-15 2022-06-15 Located Within [facility], 1.2.840.1 [id number] 103 9405721 Methodi 14:13:36 14:14:00 Encounter Jorge Luis 01802.1.1 680 s t 3.430.2.7 Hospit a .3.913309 .8 2022-06-15 2022-06-15 Located Within [facility], 1.2.840.1 [id number] 188 [id number] Methodi 14:12:01 14:12:01 Encounter Jorge Luis 48026.1.1 418 s t 3.430.2.7 Hospit a .3.059599 l .8 2022-06-15 2022-06-15 Orders Sathya, 1.2.840.1 [id number] 2099 987926 Methodi 00:00:00 00:00:00 Only Jorge Luis 89132.1.[address] 3.430.2.7 Hospit a .3.487200 l .8 2022-06-15 2022-06-15 Travel 1.2.840.1 1.2.186.648 8629 069112 Methodi 00:00:00 00:00:[address] 3.430.2.7 0.2.7.3.698 Ho spita .3.513800 084.8 l .8 2022-06-11 2022-06-11 Travel 1.2.840.1 1.2.049.388 8930 042464 Methodi 00:00:00 00:00:[address] 3.430.2.7 0.2.7.3.698 Ho spita .3.551902 084.8 l .8 2022-02-17 2022-02-17 Refill Vivian, 1.2.840.1 [id number] 2099 018216 Methodi 00:00:00 00:00:[address] Andrea 3.430.2.7 Hospit a .3.455435 l .8 2022-01-20 2022-01-20 Office Vivian 1.2.840.1 [id number] 2099 706780 Methodi 13:00:00 13:57:49 Visit Yoseph 65571.1.[address] Andrea 3.430.2.7 Hospit a .3.053634 l .8 2022-01-20 2022-01-20 Telephone GEORGIE Kelley 1.2.840.114 9 [id number] [facility] 00:00:00 00:00:00 Michi MULTISPEC 350.1.13.10 ity of [place] 4.2.7.2.686 [facility] [id number] [facility] [address] [facility] 2022-01-20 2022-01-20 Travel 1.2.840.1 1.2.645.708 3839 105305 Methodi 00:00:00 00:00:[address] 3.430.2.7 0.2.7.3.698 Ho spita .3.769553 084.8 l .8 2022-01-19 2022-01-19 Telephone Vivian RUST 1.2.840.114 93 [id number] Univers 00:00:00 00:00:00 Yoseph MULTISPEC 350.1.13.[address] [facility] 4.2.7.2.686 [facility] [phone] [address] [facility] 2021-11-21 2021-11-21 Orders Doctor SUDHA 1.2.840.114 [id number] 36 Univers 00:00:00 00:00:00 Only Unassigned, ALEM 350.1.13.10 ity of [facility] 4.2.7.2.686 Zay as [id number] [facility] [address] 2021-11-17 2021-11-18 Emergency [facility] [id number] 11 Univers 19:45:00 00:44:00 DONTA [facility] 2021-11-17 2021-11-18 Emergency [facility] 1.2.786.797 5850 8574 Univers 19:45:00 00:44:00 Donta GUERRERO 350.1.13.10 i ty [facility] 4.2.7.2.686 [facility] [id number] [facility] 0[address] 2021-11-16 2021-11-16 Emergency X [facility] ERT [id number] 86 Univers 20:28:00 21:58:[address] [facility] 2021-11-16 2021-11-16 Emergency [facility] 1.2.182.238 2537 5340 Univers 20:28:00 21:58:00 Miladys GUERRERO 350.1.13.10 ity [facility] 4.2.7.2.686 [facility] [id number] [address] 2021-10-02 2021-10-02 Emergency EM Nwjacey, HCACL MALISSA [id number] [facility] 16:59:00 20:32:00 Hung [id number] Cl [facility] 2021-10-02 2021-10-02 Emergency EM EDDOC, HCACL HCACL [id number] 76 [facility] 16:59:00 20:32:00 GENERIC 76 [facility] 2021-10-01 2021-10-01 Refill Vivian, 1.2.840.1 [id number] 2100 544429 Methodi 00:00:00 00:00:[address] Andrea 3.430.2.7 Hospit a .3.342030 l .8 2021-09-30 2021-09-30 Emergency X [facility] ERT [id number] 7642 Univers 13:31:00 16:34:[address] [facility] 2021-09-30 2021-09-30 Emergency [facility] 1.2.840.114 90 783520 Univers 13:31:00 16:34:00 Awilda GUERRERO 350.1.13.10 [facility] 4.2.7.2.686 [facility] [phone] [address] 2021-08-14 2021-08-14 Refill Nenita, 1.2.840.1 [id number] 21 [id number] Methodi 00:00:00 00:00:[address] 3.430.2.7 Hospit a .3.439088 l .8 2021-08-12 2021-08-12 Refill Nenita, 1.2.840.1 [id number] 21 [id number] Methodi 00:00:00 00:00:[address] 3.430.2.7 Hospit a .3.315541 l .8 2021-07-23 2021-07-23 Emergency X RUST ERT [id number] 08 Univers 16:14:00 17:06:[address] [facility] 2021-07-23 2021-07-23 Emergency RUST 1.2.352.410 8311 5383 [facility] 16:14:00 17:06:00 [place] 350.1.13.10 i ty of [facility] 4.2.7.2.686 [facility] [id number] [facility] 0[address] 2021-07-23 2021-07-23 Emergency EM Sanket, HCACL AERS [id number] [facility] 13:58:00 14:24:00 Burak [id number] [facility] 2021-07-23 2021-07-23 Emergency EM Sanket, HCACL HCACL [id number] [facility] 13:58:00 14:24:00 Burak 69 [facility] 2021-07-10 2021-07-10 Telemedici Vivian, 1.2.840.1 [id number] 2 [id number] Methodi 08:30:00 09:02:51 ne Dewitt 95082.1.[address] [facility] 3.430.2.7 Hospit a .3.022175 l .8 2021-07-09 2021-07-09 Travel 1.2.840.1 1.2.940.827 7075 594073 Methodi 00:00:00 00:00:[address] 3.430.2.7 0.2.7.3.698 Ho spita .3.220405 084.8 l .8 2021-06-13 2021-06-13 Outpatient [facility] 73412 38858 [place] 00:00:00 00:00:[address] 2021-04-17 2021-04-17 Emergency E LOLITA WASSERMAN [facility] 7515 16:40:00 19:42:[address] [facility] 2021-03-30 2021-03-30 Emergency E SATURNINO [facility] 7514 MHBL 00:46:00 06:26:00 SAB 2021-01-15 2021-01-15 Outpatient ITALIA EscobarCL [facility] G81 6242-20 [facility] 08:00:00 08:00:00 Rik 146357 [facility] 2021-01-09 2021-01-09 Emergency E LOLITA [facility] 7513 12:29:00 16:41:00 [facility] shona [facility] 2020-12-26 2020-12-26 Emergency [facility] 064 [id number] 09 [place] 00:00:00 00:00:[address] 2020-12-21 2020-12-22 Emergency [facility] 1.2.525.110 1674 7932 [facility] 22:42:00 02:02:00 Miladys Guerrero 350.1.13.10 ity of [place] 4.2.7.2.686 [facility] [phone] [facility] [address] 2020-12-21 2020-12-22 Emergency [facility] 1.2.449.357 8468 7932 22:42:00 02:02:00 Miladys Guerrero 350.1.13.10 [place] 4.2.7.2.686 [place] [id number] 08 2020-12-21 2020-12-21 Orders Doctor SUDHA 1.2.840.114 [id number] 30 00:00:00 00:00:00 Only Unassigned, ALEM 350.1.13.10 [facility] 4.2.7.2.686 [id number] 009 2020-12-21 2020-12-21 Orders Doctor SUDHA 1.2.840.114 [id number] 30 Univers 00:00:00 00:00:00 Only Unassigned, ALEM 350.1.13.10 ity [facility] 4.2.7.2.686 [facility] [phone] [facility] [address] 2020-08-15 2020-08-19 Inpatient [facility] [id number] [facility] 14:57:00 06:49:15 39 [facility] 2020-08-15 2020-08-15 Emergency [facility] 1.2.875.341 6596 8387 03:26:00 06:17:00 Donta Guerrero 350.1.13.10 [place] 4.2.7.2.686 Patten [id number] [facility] 2020-08-15 2020-08-15 Emergency [facility] 1.2.749.183 7068 8387 Univers 03:26:00 06:17:00 Donta Guerrero 350.1.13.10 i ty of [place] 4.2.7.2.686 [facility] [id number] [address] 2020-08-15 2020-08-15 Emergency X [facility] ERT [id number] [facility] 03:26:00 06:17:00 DONTA ity of [facility] 2020-04-13 2020-04-13 Emergency [facility] 1.2.840.114 [id number] 19:38:00 23:40:00 Awilda Guerrero 350.1.13.10 [place] 4.2.7.2.686 Patten [id number] [facility] 2020-04-13 2020-04-13 Emergency [facility] 1.2.840.114 77 035327 [facility] 19:38:00 23:40:00 Awilda Guerrero 350.1.13.10 ity of [place] 4.2.7.2.686 [facility] [id number] [address] 2020-04-13 2020-04-13 Orders Doctor HALEY 1.2.840.114 [id number] 77 00:00:00 00:00:00 Only Unassigned, ALEM 350.1.13.10 [place] [facility] 4.2.7.2.686 [id number] 009 2020-04-13 2020-04-13 Orders Doctor SUDHA 1.2.840.114 [id number] 77 Univers 00:00:00 00:00:00 Only Unassigned, ALEM 350.1.13.10 ity of [place] [facility] 4.2.7.2.686 [facility] [phone] [address] 2020-04-10 2020-04-10 Emergency [facility] 1.2.018.811 9388 5068 15:39:00 19:05:00 Huy Guerrero 350.1.13.10 [place] 4.2.7.2.6 Patten [id number] [facility] 2020-04-10 2020-04-10 Emergency [facility] 1.2.467.929 3414 5068 Univers 15:39:00 19:05:00 Huy Guerrero 350.1.13.10 i ty of [place] 4.2.7.2.686 [facility] [id number] [facility] [address] 2020-04-10 2020-04-10 Orders Doctor SUDHA 1.2.840.114 [id number] 10 00:00:00 00:00:00 Only Unassigned, ALEM 350.1.13.10 [facility] 4.2.7.2.686 [id number] 009 2020-04-10 2020-04-10 Orders Doctor SUDHA 1.2.840.114 [id number] 10 Univers 00:00:00 00:00:00 Only Unassigned, ALEM 350.1.13.10 ity of [facility] 4.2.7.2.686 [facility] [id number] [facility] 009 Branch 2020-03-11 2020-03-11 Dusty FOSTER [facility] Obstetrics 677 63393 [place] 10:00:00 10:00:00 t; Gayatri HUSAIN and Quynh FOSTER, Gynecology rubén HUSAIN M.D. [facility] 2020-02-28 2020-02-28 [facility] [id number] [place] 08:30:00 08:30:00 t; Gayatri HUSAIN ans ASHA, M.D. 2020-02-23 2020-02-23 Dust[facility] [id number] 74 [place] 11:00:00 11:00:00 t; Gayatri HUSAIN ans ASHA, M.D. 2020-02-16 2020-02-16 Dusty MARTE [facility] Obstetrics 673 71026 [place] 14:15:00 14:15:00 t; Yue ROCHA i, M.D. Gynecology Dinah Crawford M.D. Clinic 2020-02-15 2020-02-15 Emergency E AMELIE, MHSE MHSE 7510 20:06:00 21:19:00 [facility] 2020-02-14 2020-02-14 MARIBEL Nails Obstetrics 6679 2985 [place] 09:00:00 09:00:00 t; SAMIR MATAMOROS and Phy sici BETHANY, M.D. Gynecology rubén [place] [facility] 2020-01-31 2020-01-31 Appointmen MARIBEL AGRAWAL Obstetrics 667 74483 [place] 08:30:00 08:30:00 t; JUNE and Jennifer AGRAWAL D.O. Gynecology ans JUNE [facility] DMellO. Clinic 2019-12-20 2019-12-20 Appointmen ANA PAULA [facility] Orthopedics 65 754441 [place] 09:30:00 09:30:00 t; mayo CID [facility] Quynh GOSS M.D. Sports Jewel Lazo M.D. [facility] 2019-12-20 2019-12-20 Outpatient Raju_P MMG MMG 01569-2 020 [place] 04:51:00 04:51:00 0415 Medical Group 2019-12-18 2019-12-18 Emergency E TABBY, MHSE MHSE 7500 MH 20:54:00 21:40:00 [facility] 2019-10-11 2019-10-12 Emergency [facility] 1.2.555.595 3780 3555 21:52:36 00:17:00 Donta Guerrero 350.1.13.10 [place] 4.2.7.2.686 Patten [id number] [facility] 2019-10-11 2019-10-12 Emergency X [facility] ERT [id number] Univers 21:52:36 00:17:[address] [facility] 2019-10-11 2019-10-12 Emergency [facility] 1.2.925.761 7005 3555 [facility] 21:52:36 00:17:00 Donta Guerrero 350.1.13.10 la nena moraes [place] 4.2.7.2.686 [facility] [id number] [address] 2019-10-11 2019-10-11 Orders Doctor HALEY 1.2.840.114 [id number] 54 00:00:00 00:00:00 Only Unassigned, ALEM 350.1.13.10 [place] [facility] 4.2.7.2.686 [id number] 009 2019-10-11 2019-10-11 Orders Doctor SUDHA 1.2.840.114 [id number] 54 Univers 00:00:00 00:00:00 Only Unassigned, ALEM 350.1.13.10 ity of [place] [facility] 4.2.7.2.686 Zay as [phone] [address] 2019-06-28 2019-06-28 Appointmen MARIBEL GRUBBS Obstetrics 580 71079 [place] 16:00:00 16:00:00 t; Gayatri CAVANAUGH and Ph ysici HUMERA, Gynecology Dinah Medina M.D. Clinic 2019-05-12 2019-05-12 Nurse Visit, RUST 1.2.840.114 [id number] 10:44:42 12:05:57 [facility] ALIGNER 350.1.13.10 Nurse [facility] 4.2.7.2.686 MATERNAL [id number] & CHILD [address] [place] [address] 2019-05-12 2019-05-12 Nurse Visit, [facility] Nurse RUST 1.2 .840.114 [id number] [facility] 10:44:42 12:05:57 Visit Perri Pérez BLADE ALIGNER 350.1.13.10 ity of [facility] 4.2.7.2.686 Zay as MATERNAL [id number] Med ical & CHILD [address] [place] [address] 2019-05-10 2019-05-10 Telephone [facility] 1.2.840.114 [id number] 00:00:00 00:00:00 Perri Olivier BLADE ALIGNER 350.1.13.10 REGIONAL 4.2.7.2.686 MATERNAL [id number] & CHILD [address] [place] [address] 2019-05-10 2019-05-10 Telephone [facility] 1.2.840.114 [id number] [facility] 00:00:00 00:00:00 Perri Olivier BLADE ALIGNER 350.1.13.10 it y of [facility] 4.2.7.2.686 Zay as MATERNAL [id number] Med ical & CHILD [address] [place] [address] 2019-04-03 2019-04-03 Patient ROBIN Mcfadden 1.2.840.114 705 75287 00:00:00 00:00:00 Secure Msg Ivet Y HEALTH 350.1.13.10 CLINICS 4.2.7.2.686 [id number] 113 2019-04-03 2019-04-03 Patient ROBIN Mcfadden 1.2.840.114 705 18843 Univers 00:00:00 00:00:00 Secure Msg Ivet Y HEALTH 350.1.13.10 ity of CLINICS 4.2.7.2.[place] [id number] [facility] [address] 2019-03-07 2019-03-07 Patient Doctor SUDHA 1.2.840.114 [id number] 20 00:00:00 00:00:00 Secure Msg Unassigned, ALEM 350.1.13.10 [place] [facility] 4.2.7.2.686 [phone] [id number] 2019-03-07 2019-03-07 Patient Doctor SUDHA 1.2.840.114 [id number] [facility] 00:00:00 00:00:00 Secure Msg Unassigned, ALEM 350.1.13.10 ity of [facility] 4.2.7.2.686 [place] as [id number] [address] 2019-02-27 2019-02-27 Patient Doctor SUDHA 1.2.840.114 [id number] 00:00:00 00:00:00 Secure Msg Unassigned, ALEM 350.1.13.10 [facility] 4.2.7.2.[id number] [facility] 2019-02-27 2019-02-27 Patient Doctor SUDHA 1.2.840.114 [id number] [facility] 00:00:00 00:00:00 Secure Msg Unassigned, ALEM 350.1.13.10 ity of [facility] 4.2.7.2.686 [place]ay as [id number] [address] 2018-10-13 2018-10-13 AppointMARIBEL Puente [facility] [id number] [place] 14:30:00 14:30:00 t; Jennifer FINK i, M.D. ans JORDAN, M.D. 2018-09-07 2018-09-21 [id number] 15:00:00 10:19:03 2018-09-07 2018-09-07 MARIBEL Johnson Licensed Practical Nurse Instructor [id number] [place] 15:00:00 15:00:00 BONITA Beverly, Gayatri Alvarado M.D. Results Test Description Test [...] 34.6 g/dL 31.6-35.1 RDW-SD (test code = 48136-6) 39.3 fL 39.0-49.9 RDW-CV (test code = 788-0) 11.5 % 12.0-15.5 L PLT (test code = 777-3) 426 See_Comment H [Au tomated message] The system which ge nerated this result transmit uche reference range: 166 - 35 8 10*3/?L. The reference range was not used to interpret th is result as normal/abnormal . MPV (test code = 72070-1) 9.3 fL 9.5-12.9 L NRBC/100 WBC (test code = 0.0 See_Comment [ Automated message] The [id number]) system which [employer] nerated this result transmit uche reference range: 0.0 - 10 .0 /100 WBCs. The reference r dagoberto was not used to interpr et this result as normal/abnor mal. NRBC x10^3 (test code = See_Comment [Au tomated message] The [id number]) system which [employer] nerated this result transmit uche reference range: 10*3/?L. The reference range was not u sed to interpret this result as normal/abnormal . GRAN MAT (NEUT) % (test code 69.0 % = 770-8) IMM GRAN % (test code = 0.40 % [id number]) LYMPH % (test code = 736-9) 25.4 % MONO % (test code = 5905-5) 4.6 % EOS % (test code = 713-8) 0.2 % BASO % (test code = 706-2) 0.4 % GRAN MAT x10^3(ANC) (test 6.90 10*3/uL 1.88-7.09 code = 8098445703) IMM GRAN x10^3 (test code = 0.04 10*3/uL 0.00-0.06 [id number]) LYMPH x10^3 (test code = 2.54 10*3/uL 1.32-3.29 731-0) MONO x10^3 (test code = 0.46 10*3/uL 0.33-0.92 742-7) EOS x10^3 (test code = 0.03-0.39 L 711-2) BASO x10^3 (test code = 0.04 10*3/uL 0.01-0.07 704-7) Lab Interpretation (test Abnormal code = 15692-6) [id number]:05:00 Test Item Value Reference Range Interpretation Comments POCT PREG (test code = 1605) Negative On board controls acceptable with Yes C Line (test code = 3574) POCT PREG LOT # (test code = 3575) [id number] POCT PREG TEST DATE (test 09-08-2024 code = 3576) Lab Interpretation (test code = Normal 24400-0) [id number] 20:27:33 Test Item Value Reference Range Interpretation Comments TROPONIN I (test code = <=0.034 5096415428) ANGI (test code = ANGI) Reference (Normal) [...] biotin. Lab Interpretation Normal (test code = 46456-2) [facility] [id number] 20:18:51 Test Item Value Reference Range Interpretation Comments NA (test code = 132 mmol/L 135-145 L [id number]) K (test code = 4.1 mmol/L 3.5-5.0 5734344329) CL (test code = 98 mmol/L 98-108 1640646021) CO2 TOTAL (test code = 26 mmol/L 23-31 6482567357) AGAP (test code = 8 2-16 2542260998) BUN (test code = 12 mg/dL 7-23 6782772091) GLUCOSE (test code = 79 mg/dL 70-110 0221667256) CREATININE (test code = 0.58 mg/dL 0.50-1.04 0220595740) TOTAL BILI (test code = 0.4 mg/dL 0.1-1.9 9661379626) CALCIUM (test code = 9.0 mg/dL 8.6-10.6 5682882185) T PROTEIN (test code = 7.4 g/dL 6.3-8.2 2211505220) ALBUMIN (test code = 4.5 g/dL 3.5-5.0 0965783619) ALK PHOS (test code = 62 U/L 34-122 4126661621) ALTv (test code = 23 U/L 5-35 1742-6) AST(SGOT) (test code = 31 U/L 13-40 0194442686) eGFR (test code = 122.1 mL/min/1.73m2 6141141368) ANGI (test code = ANGI) Association of [...] tests). Lab Interpretation Abnormal (test code = 92989-0) [facility], [id number] 20:18:51 Test Item Value Reference Range Interpretation Comments LIPASE (test code = 9768214097) 186 U/L 0-220 Lab Interpretation (test code = Normal 48069-7) [facility] CenterCB with Hevwedcljsuc4437-52-75 19:39:40 Test Item Value Reference Range Interpretation Comments WBC (test code = 5.62 See_Comment [Automated 9490-2) message] The sy stem which generated this [...] RDW-SD (test code = 44.1 fL 39.0-49.9 12835-7) RDW-CV (test code = 13.2 % 12.0-15.5 788-0) PLT (test code = 277 See_Comment [Automated 777-3) message] The sy stem which generated this result transmitted reference range : 166 - 358 10*3/ ?L. The reference r dagoberto was not used to interpret this result as normal/abnormal . MPV (test code = 8.5 fL 9.5-12.9 L 06746-8) NRBC/100 WBC (test 0.0 See_Comment [Automat ed code = 2056528915) message] The system which generated this result transmitted reference range : 0.0 - 10.0 /100 WBCs. The refer ence range was not u sed to interpret th is result as normal/abnormal . NRBC x10^3 (test code See_Comment [Auto mated = 1740622143) message] The s ystem which generated this result transmitted reference range : 10*3/?L. The reference range was not used to interpret this result as normal/abnormal . GRAN MAT (NEUT) % 46.4 % (test code = 770-8) IMM GRAN % (test code 0.90 % = 9470899380) LYMPH % (test code = 38.6 % 736-9) MONO % (test code = 12.5 % 5905-5) EOS % (test code = 0.7 % 713-8) BASO % (test code = 0.9 % 706-2) GRAN MAT x10^3(ANC) 2.61 10*3/uL 1.88-7.09 (test code = 9547920756) IMM GRAN x10^3 (test 0.05 10*3/uL 0.00-0.06 code = 8887235775) LYMPH x10^3 (test code 2.17 10*3/uL 1.32-3.29 = 731-0) MONO x10^3 (test code 0.70 10*3/uL 0.33-0.92 = 742-7) EOS x10^3 (test code = 0.04 10*3/uL 0.03-0.39 711-2) BASO x10^3 (test code 0.05 10*3/uL 0.01-0.07 = 704-7) Lab Interpretation Abnormal (test code = 22453-9) [facility] CenterPOCT [id number] 19:34:00 Test Item Value Reference Range Interpretation Comments POCT PREG (test code = 1605) Negative On board controls acceptable with Yes C Line (test code = 3574) POCT PREG LOT # (test code = 3575) [id number] POCT PREG TEST DATE (test 04/13/2024 code = 3576) Lab Interpretation (test code = Normal 49174-3) [facility]. METABOLIC PANEL (15470)2023-01-15 15:36:17 Test Item Value Reference Range Interpretation Comments NA (test code = 139 mmol/L 135-145 0792794011) K (test code = 4.7 mmol/L 3.5-5.0 4226235767) CL (test code = 103 mmol/L 98-108 3032242351) CO2 TOTAL (test code 28 mmol/L 23-31 = 1649486312) AGAP (test code = 8 2-16 8857372456) BUN (test code = 14 mg/dL 7-23 0055956738) GLUCOSE (test code = 75 mg/dL 70-110 2257596552) CREATININE (test code 0.72 mg/dL 0.50-1.04 = 1420879914) TOTAL BILI (test code 0.4 mg/dL 0.1-1.1 = 2898588979) CALCIUM (test code = 9.4 mg/dL 8.6-10.6 8655549267) T PROTEIN (test code 7.4 g/dL 6.3-8.2 = 0768783944) ALBUMIN (test code = 4.5 g/dL 3.5-5.0 7980673163) ALK PHOS (test code = 58 U/L 34-122 4657912731) ALTv (test code = 22 U/L 5-35 1742-6) AST(SGOT) (test code 24 U/L 13-40 = 0665301580) eGFR (test code = 95.1 mL/min/1.73m2 5343895010) ANGI (test code = ANGI) Association of [...] urine or abnormalities in imaging tests). [facility] CenterLIPASE2023-[facility] 15:36:17 Test Item Value Reference Range Interpretation Comments LIPASE (test code = 6308630767) 93 U/L 0-220 Lab Interpretation (test code = Normal 06746-6) [facility] WITH [id number] 15:19:14 Test Item Value Reference Range Interpretation [...] RDW-SD (test code = 42.5 fL 39.0-49.9 56386-8) RDW-CV (test code = 12.9 % 12.0-15.5 788-0) PLT (test code = 317 See_Comment [Automated 777-3) message] The sy stem which generated this result transmitted reference range : 166 - 358 10*3/ ?L. The reference r dagoberto was not used to interpret this result as normal/abnormal . MPV (test code = 8.8 fL 9.5-12.9 L 94531-6) NRBC/100 WBC (test 0.0 See_Comment [Automat ed code = 5698862715) message] The system which generated this result transmitted reference range : 0.0 - 10.0 /100 WBCs. The refer ence range was not u sed to interpret th is result as normal/abnormal . NRBC x10^3 (test code See_Comment [Auto mated = 4866436357) message] The s ystem which generated this result transmitted reference range : 10*3/?L. The reference range was not used to interpret this result as normal/abnormal . GRAN MAT (NEUT) % 55.7 % (test code = 770-8) IMM GRAN % (test code 0.30 % = 7159737633) LYMPH % (test code = 34.0 % 736-9) MONO % (test code = 8.1 % 5905-5) EOS % (test code = 1.0 % 713-8) BASO % (test code = 0.9 % 706-2) GRAN MAT x10^3(ANC) 4.45 10*3/uL 1.88-7.09 (test code = 5446193786) IMM GRAN x10^3 (test 0.00-0.06 code = 0266472519) LYMPH x10^3 (test code 2.72 10*3/uL 1.32-3.29 = 731-0) MONO x10^3 (test code 0.65 10*3/uL 0.33-0.92 = 742-7) EOS x10^3 (test code = 0.08 10*3/uL 0.03-0.39 711-2) BASO x10^3 (test code 0.07 10*3/uL 0.01-0.07 = 704-7) Lab Interpretation Abnormal (test code = 36949-9) [facility] CenterPOCT [id number] 16:38:09 Test Item Value Reference Range Interpretation Comments POCT Creatinine (test code = 0.7 mg/dL 0.5-1.7 7799572945) Lab Interpretation (test code = Normal 38155-2) [facility] CenterTHYROID STIMULATING [id number] 17:16:01 Test Item Value Reference Range Interpretation Comments TSH (test code = 3.96 See_Comment [Automated message] 6767807713) The system [employer] generated this result transmitted ref erence range: 0.45 - 4 .70 mIU/L. The refe rence range was not u sed to interpret this result as normal/abnor mal. Lab Interpretation (test Normal code = 60433-3) [facility] CenterD-HUCDB9435-04-94 11:33:33 Test Item Value Reference Interpretation Comments Range D-DIMER (test code = See_Comment [Autom ated 4529106360) message] The system which generated this result [...] diagnosis. Lab Interpretation Normal (test code = 05895-1) [facility] [id number] 10:57:27 Test Item Value Reference Range Interpretation Comments TROPONIN I (test code = 0.012 ng/mL <=0.034 0324497768) ANGI (test code = ANGI) Reference (Normal) [...] biotin. Lab Interpretation Normal (test code = 15209-8) [facility] [id number] 09:04:18 Test Item Value Reference Range Interpretation Comments TROPONIN I (test code = 0.010 ng/mL <=0.034 7772401895) ANGI (test code = ANGI) Reference (Normal) [...] biotin. Lab Interpretation Normal (test code = 18348-2) [facility] WITH [id number] 09:03:38 Test Item Value Reference Range Interpretation Comments WBC (test code = 10.76 See_Comment [Automated 7064-2) message] The sy stem which generated this result transmitted reference range : 4.30 - 11.10 10*3/?L. The reference range was not used to interpret this result as normal/abnormal . RBC (test code = 4.19 See_Comment [Automated 606-8) message] The sy stem which generated this [...] (test code = 36.7 fL 39.0-49.9 L 92265-9) RDW-CV (test code = 11.6 % 12.0-15.5 L 788-0) PLT (test code = 317 See_Comment [Automated 953-3) message] The sy stem which generated this result transmitted reference range : 166 - 358 10*3/ ?L. The reference r dagoberto was not used to interpret this result as normal/abnormal . MPV (test code = 8.8 fL 9.5-12.9 L 76826-7) NRBC/100 WBC (test 0.0 See_Comment [Automat ed code = 5955161190) message] The system which generated this result transmitted reference range : 0.0 - 10.0 /100 WBCs. The refer ence range was not u sed to interpret th is result as normal/abnormal . NRBC x10^3 (test code See_Comment [Auto mated = 6430209717) message] The s ystem which generated this result transmitted reference range : 10*3/?L. The reference range was not used to interpret this result as normal/abnormal . GRAN MAT (NEUT) % 49.3 % (test code = 770-8) IMM GRAN % (test code 0.50 % = 2296099545) LYMPH % (test code = 42.6 % 736-9) MONO % (test code = 6.3 % 5905-5) EOS % (test code = 0.6 % 713-8) BASO % (test code = 0.7 % 706-2) GRAN MAT x10^3(ANC) 5.32 10*3/uL 1.88-7.09 (test code = 9560436067) IMM GRAN x10^3 (test 0.05 10*3/uL 0.00-0.06 code = 4149173245) LYMPH x10^3 (test code 4.58 10*3/uL 1.32-3.29 H = 731-0) MONO x10^3 (test code 0.68 10*3/uL 0.33-0.92 = 742-7) EOS x10^3 (test code = 0.06 10*3/uL 0.03-0.39 711-2) BASO x10^3 (test code 0.07 10*3/uL 0.01-0.07 = 704-7) Lab Interpretation Abnormal (test code = 37235-2) [facility]. METABOLIC PANEL (26579)2022-12-14 08:52:54 Test Item Value Reference Range Interpretation Comments NA (test code = 137 mmol/L 135-145 3688433220) K (test code = 3.9 mmol/L 3.5-5.0 9294344357) CL (test code = 103 mmol/L 98-108 5866398784) CO2 TOTAL (test code 25 mmol/L 23-31 = 6709392930) AGAP (test code = 9 2-16 3601629056) BUN (test code = 14 mg/dL 7-23 2632340950) GLUCOSE (test code = 88 mg/dL 70-110 7413285876) CREATININE (test code 0.69 mg/dL 0.50-1.04 = 2838246366) TOTAL BILI (test code 0.4 mg/dL 0.1-1.1 = 2927365954) CALCIUM (test code = 9.5 mg/dL 8.6-10.6 4464361726) T PROTEIN (test code 7.8 g/dL 6.3-8.2 = 9499873401) ALBUMIN (test code = 4.9 g/dL 3.5-5.0 8263921947) ALK PHOS (test code = 59 U/L 34-122 3699305038) ALTv (test code = 19 U/L 5-35 1742-6) AST(SGOT) (test code 23 U/L 13-40 = 8153385927) eGFR (test code = 99.9 mL/min/1.73m2 7211831646) ANGI (test code = ANGI) Association of [...] urine or abnormalities in imaging tests). [facility] CenterLIPASE20[facility] 08:52:34 Test Item Value Reference Range Interpretation Comments LIPASE (test code = 2399308592) 70 U/L 0-220 Lab Interpretation (test code = Normal 39757-6) [facility] CenterD-[id number] 15:45:47 Test Item Value Reference Interpretation Comments Range D-DIMER (test code = See_Comment [Autom ated 1867915217) message] The system which generated this result [...] diagnosis. Lab Interpretation Normal (test code = 30681-6) [facility] CenterPREGNANCY TEST, [id number] 15:07:51 Test Item Value Reference Range Interpretation Comments PREG SERUM (test code Negative = 9177532965) ANGI (test code = ANGI) Less than 10 IU/L. ?If low titer or ectopic is suspected, resubmit specimen in 48-72 hours. [facility] CenterCOM. METABOLIC PANEL (68049)2022-11-03 15:05:35 Test Item Value Reference Range Interpretation Comments NA (test code = 138 mmol/L 135-145 8299905672) K (test code = 4.4 mmol/L 3.5-5.0 5583974058) CL (test code = 104 mmol/L 98-108 8269210550) CO2 TOTAL (test code = 25 mmol/L 23-31 7641405941) AGAP (test code = 9 2-16 3207572276) BUN (test code = 8 mg/dL 7-23 5371333306) GLUCOSE (test code = 100 mg/dL 70-110 1254389109) CREATININE (test code = 0.68 mg/dL 0.50-1.04 1699975646) TOTAL BILI (test code = 0.6 mg/dL 0.1-1.2 9218582041) CALCIUM (test code = 9.3 mg/dL 8.6-10.6 9003182526) T PROTEIN (test code = 8.2 g/dL 6.3-8.2 8386212774) ALBUMIN (test code = 5.1 g/dL 3.5-5.0 H 6586565966) ALK PHOS (test code = 57 U/L 34-122 8431378046) ALTv (test code = 21 U/L 5-35 1742-6) AST(SGOT) (test code = 29 U/L 13-40 4109001385) eGFR (test code = 101.6 mL/min/1.73m2 0507593895) ANGI (test code = ANGI) Association of [...] tests). Lab Interpretation Abnormal (test code = 22670-3) [facility] WITH [id number] 14:50:54 Test Item Value Reference Range Interpretation Comments WBC (test code = 8.23 See_Comment [Automated 2690-2) message] The sy stem which generated this result transmitted reference range : 4.30 - 11.10 10*3/?L. The reference range was not used to interpret this result as normal/abnormal . RBC (test code = 4.47 See_Comment [Automated 179-8) message] The sy stem which generated this [...] (test code = 36.4 fL 39.0-49.9 L 89558-6) RDW-CV (test code = 11.2 % 12.0-15.5 L 788-0) PLT (test code = 384 See_Comment H [Automated 777-3) message] The sy stem which generated this result transmitted reference range : 166 - 358 10*3/ ?L. The reference r dagoberto was not used to interpret this result as normal/abnormal . MPV (test code = 8.4 fL 9.5-12.9 L 35388-7) NRBC/100 WBC (test 0.0 See_Comment [Automat ed code = 3855342101) message] The system which generated this result transmitted reference range : 0.0 - 10.0 /100 WBCs. The refer ence range was not u sed to interpret th is result as normal/abnormal . NRBC x10^3 (test code See_Comment [Auto mated = 7051734485) message] The s ystem which generated this result transmitted reference range : 10*3/?L. The reference range was not used to interpret this result as normal/abnormal . GRAN MAT (NEUT) % 47.0 % (test code = 770-8) IMM GRAN % (test code 0.20 % = 1667806611) LYMPH % (test code = 44.0 % 736-9) MONO % (test code = 6.6 % 5905-5) EOS % (test code = 1.1 % 713-8) BASO % (test code = 1.1 % 706-2) GRAN MAT x10^3(ANC) 3.87 10*3/uL 1.88-7.09 (test code = 7895890610) IMM GRAN x10^3 (test 0.00-0.06 code = 5664560503) LYMPH x10^3 (test code 3.62 10*3/uL 1.32-3.29 H = 731-0) MONO x10^3 (test code 0.54 10*3/uL 0.33-0.92 = 742-7) EOS x10^3 (test code = 0.09 10*3/uL 0.03-0.39 711-2) BASO x10^3 (test code 0.09 10*3/uL 0.01-0.07 H = 704-7) Lab Interpretation Abnormal (test code = 23974-3) [facility]2022-12-05 16:49:00 Test Item Value Reference Range Interpretation Comments SURGICAL (test code = SR) R UN DATE: 08/10/22 [facility] PAGE [facility] RUN TIME: 1649 Specimen Inquiry RUN USER: INTERFACE P ATIENT: ROSITA MARIE [facility]: [id number] AGE/SX: 32/F ROOM: Counts Include 234 B[facility] At [facility] RE08/07/22REG DR: Gianna Tyler MD : 89 BED: A DIS: 08/08/22 STATUS: DIS Keira TLOC: SPEC #: [id number] RECD: 08/07/22 STATUS: MIKI REQ #: [id number] LAURYN: 08/07/22 [facility] DR: Gianna Tyler MD ENTERED: 08/07/22 SP TYPE: SURGICAL OTHR : No Primary or Family PhysicianORDERED: ANATOMIC SPEC/4, SPEC TRACK, 10855/ COPIES TO: No Primary or Family Physician Gianna Tyler MD [address] [place] [address], [address] [place] [address] PROCEDURES: 92864 (08/07/22-1017) TISSUES: A. BREAST, EXCISION OF DISCRETE LESION [...] [facility] RUN TIME: 2689 Specimen Inquiry RUN USER: INTERFACE S [facility] #: [id number] PATIENT: ROSITA MARIE #[id number] (Continued) GROSS DESCRIPTION (Continued) Ink code: Hamlin-duct surface; black-remainder of the specimen. B. Received in formalin labeled with Patient's name, HIWOT, SAPNA and "right breast upper innerquadrant mass"; consists [...] Fragment 3.XZ 08/07/22 [id number] , [place] [address] Unless gross only, the diagnosis is based [...] 08/10/22 1649 END OF REPORT CBC W/AUTO [id number] 14:24:00 Test Item Value Reference Range Interpretation [...] NORMAL NORMAL code = PLTMR) UR HCG [id number] 18:52:00 Test Item Value Reference Range Interpretation Comments UR HCG QUAL (test code = HCGQLU) NEGATIVE NEGATIVE SURGICAL [id number] 08:42:00 Test Item Value Reference Range Interpretation Comments SURGICAL SPECIMENS (test code = SURG) --------RUN DATE: 12/31/20 [facility] - LAB PAGE 1 RUN TIME: 841 Specimen Inquiry RUN USER: INTERFACE --------PATIENT: ROSITA MARIE LOC: [facility] U #: [id number] AGE/SX: 30/F ROOM: [facility] RE12/26/20REG DR: Olegario Srivastava MD : 89 BED: 02 DIS: 12/26/20 STATUS: DIS Keira TLOC: -------- SPEC #: [id number] RECD: 12/26/20 STATUS: MIKI RENorma #: [id number] LAURYN: 12/26/20-9 [facility] DR: Olegario Srivastava MD ENTERED: 12/26/20 [...] its performance characteristics determined by the [facility]. It has not been cleared or approved by the US Food and Drug Administration. The FDA has determined that such clearance or approval is not necessary. The test is used for clinical purposes. It should not be regarded as investigational or for research. [facility] is certified under CLIA-88 (Clinical Laboratory [...] CONTINUED ON NEXT PAGE --------RUN DATE: 12/31/20 [facility] [facility] - LAB PAGE 2 RUN TIME: 841 Specimen Inquiry RUN USER: INTERFACE --------SPEC #: [id number] PATIENT: ROSITA MARIE #[id number] (Continued) FINAL DIAGNOSIS (Continued) C. STOMACH, FUNDUS, BIOPSY: - OXYNTIC MUCOSA WITH REACTIVE GASTROPATHY - NEGATIVE FOR HELICOBACTER PYLORI BY IMMUNOHISTOCHEMISTRY - NO INTESTINAL METAPLASIA, DYSPLASIA, OR MALIGNANCY IS IDENTIFIED CPT: 39944 x3, 26281 x3 GROSS DESCRIPTION Received are three containers of formalin labeled with the patient's name, medical record number, and specimen source. A. Received labeled "gastric antrum biopsy" is a 0.6 cm in greatest dimension [place] soft tissue biopsy which is submitted in toto in cassette A. B. Received labeled "gastric body biopsy" are three [place] soft tissue biopsies varying from 0.1 cm [...] -------- END OF REPORT COVID Asymptomatic IH [id number] 10:52:00 Test Item Value Reference Interpretation Comments [...] i ts performancechar acteristics were determined by [facility]. Thi s test has notbeen FDA [...] setting? Unknown? UnknownAge at collection: YBASIC METABOLIC [id number] 21:38:00 Test Item Value Reference Range Interpretation [...] CA) Reference Range Oct 2020 LIVER FUNCTION [id number] 21:38:00 Test Item Value Reference Range Interpretation [...] code = ALKP) Reference Range Oct 2020 [id number] 21:38:00 Test Item Value Reference Range Interpretation Comments LIPASE (test code = 32 U/L 12-53 N Please n ote: New LIP) Reference Range Oct 2020 CBC W/AUTO [id number] 21:24:00 Test Item Value Reference Range Interpretation [...] BA#) 0.05 x10 3/uL 0.0-0.20 N PROTHROMBIN [id number] 21:22:00 Test Item Value Reference Range Interpretation [...] 2.5-3.5recurren t systemic emboli sm. BASIC METABOLIC [id number] 23:38:00 Test Item Value Reference Range Interpretation [...] CA) Reference Range Oct 2020 LIVER FUNCTION [id number] 23:38:00 Test Item Value Reference Range Interpretation [...] code = ALKP) Reference Range Oct 2020 [id number] 23:38:00 Test Item Value Reference Range Interpretation Comments LIPASE (test code = 37 U/L 12-53 N Please n ote: New LIP) Reference Range Oct 2020 UA RFLX MICR CULT IF [id number] 23:10:00 Test Item Value Reference Range Interpretation [...] Indication for culture: RiskForSepsis-no oth srcUR HCG [id number] 23:10:00 Test Item Value Reference Range Interpretation [...] Indication for culture: RiskForSepsis-no oth srcUR HCG [id number] 23:08:00 Test Item Value Reference Range Interpretation Comments UR HCG QUAL (test code = HCGQLU) NEGATIVE Indication for culture: RiskForSepsis-no oth srcCBC W/AUTO [id number] 23:04:00 Test Item Value Reference Range Interpretation [...] BA#) 0.07 x10 3/uL 0.0-0.20 N SURGICAL [id number] 12:44:00 Test Item Value Reference Range Interpretation Comments SURGICAL SPECIMENS (test code = SURG) RUN DATE: 08/27/20 [facility] - LAB PAGE 1 RUN TIME: 1244 Specimen Inquiry RUN USER: INTERFACE PATIENT: ROSITA MARIE LOC: Imelda7S POD B U #: [id number] AGE/SX: 30/F ROOM: [facility] RE08/23/20REG DR: Olegario Srivastava MD : 89 BED: 1 DIS: 08/25/20 STATUS: DIS Keira TLOC: SPEC #: [id number] RECD: 08/23/20 STATUS: MIKI RENorma #: [id number] LAURYN: 08/23/[address]: Olegario Srivastava MD [...] METAPLASIA -NO HELICOBACTER PYLORI BY IMMUNOHISTOCHEMICAL STUDY 54322, [address]30 GROSS DESCRIPTION Received in formalin labeled with the patient's name and "gastric antrum" are three tissue fragments of 0.1 to 0.2 cm, submitted in one cassette. CM/ta. Signed SIGNATURE ON FILE DarrylWayne G 08/27/20 1244 END OF REPORT UA RFLX MICR CULT IF [id number] 13:25:00 Test Item Value Reference Range Interpretation [...] Description: CLEAN CATCHUA RFLX MICR CULT IF [id number] 13:24:00 Test Item Value Reference Range Interpretation [...] culture: Suprapubic PainSpecimen Description: CLEAN CATCHBASIC METABOLIC [id number] 09:57:00 Test Item Value Reference Range Interpretation [...] mg/dL 8.8-10.2 N = CA) CBC W/AUTO [id number] 06:53:00 Test Item Value Reference Range Interpretation [...] x10 3/uL 0.0-0.20 N Novel Coronavirus 2018 [id number] 06:10:00 Test Item Value Reference Range Interpretation [...] melody gnosis of COVID-19 infect ion under gdwhyhr547(b)(1 ) of the Act, 21 U.S.C. 360bbb-3(b) [...] resul t in this assay.Performed At: [facility] [address] [id number] alessandra Wei MD Ph:[phone] BASIC METABOLIC [id number] 04:20:00 Test Item Value Reference Range Interpretation [...] code 9.1 mg/dL 8.8-10.2 N = CA) [id number] 04:20:00 Test Item Value Reference Range Interpretation Comments MAGNESIUM (test code = MAG) 1.9 mg/dL 1.4-2.6 N CBC W/AUTO [id number] 04:09:00 Test Item Value Reference Range Interpretation [...] 3/uL 0.0-0.20 N - CT ABD PELVIS [id number] 15:59:00 [facility] 1990 Sex: FPatient Name: ROSITA MARIE Unit No: [id number] EXAMS: CPT CODE: [id number] CT ABD PELVIS W/CONT 03939 Examination: Abdomen and pelvic CT with contrast [...] Dt/Tm: 08/23/2020 (1559) by:[email or web address] Printed Date/Time: 08/23/2020 (2245) Name: [facility] Phys: Olegario Perrin MD [address] : 1990 Age: 30 Sex: [place] [address] Loc: P.ERMS 4 Exam Date: 08/23/2020 Status: ADM IN PH: FAX: PAGE 1 Signed ReportCoronavirus 2018 nCoV [id number] 12:44:00 Test Item Value Reference Range Interpretation Comments Coronavirus 2019 Negative Negative Negative re sults should be nCoV Bedside (test treated a s presumptive code = and, ifinconsis tent with [id number]) clinical signs and symptoms or nec essaryfor [...] signs andsymptoms consistent with COVID-19. BASIC METABOLIC [id number] 11:24:00 Test Item Value Reference Range Interpretation [...] mg/dL 8.8-10.2 N = CA) LIVER FUNCTION [id number] 11:24:00 Test Item Value Reference Range Interpretation [...] code = 77 U/L 32-104 N ALKP) [id number] 11:24:00 Test Item Value Reference Range Interpretation Comments LIPASE (test code = LIP) 18 U/L 0-190 N PROTHROMBIN [id number] 10:21:00 Test Item Value Reference Range Interpretation [...] 2.5-3.5recurren t systemic emboli sm. CBC W/AUTO [id number] 10:15:00 Test Item Value Reference Range Interpretation [...] = BA#) 0.06 x10 3/uL 0.0-0.20 N [id number] 13:24:00 Test Item Value Reference Range Interpretation Comments AMYLASE (test code = RUFUS) 36 units/L 30-110 N LAB FAX CEOBJK=[id number] METABOLIC [id number] 07:32:00 Test Item Value Reference Range Interpretation [...] 88 units/L 46-116 N code = ALKP) [id number] 07:32:00 Test Item Value Reference Range Interpretation Comments LIPASE (test code = LIP) 69 units/L 73-393 L COMPREHENSIVE METABOLIC [id number] 02:36:00 Test Item Value Reference Range Interpretation [...] 46-116 N code = ALKP) CBC W/AUTO [id number] 02:09:00 Test Item Value Reference Range Interpretation [...] NORMAL code = PLTMR) - US ABDOMEN [id number] 00:24:00 [facility] : 1990 Sex: F Patient Name: ROSITA MARIE Unit No: [id number] EXAMS: CPT CODE: [id number] US ABDOMEN COMPLETE [id number] STUDY: - US ABDOMEN COMPLETE 08/16/2020 8:29 PM Ordering Physician: Kaylah Coelho MD Patient Name: ROSITA MARIE MR: [id number] : 1990; Age: 30 years y/o Female [...] The visualized portions are normal.. ASCITES: [facility] NAME: ROSITA MARIE Radiology Department PHYS: Kaylah Knapp MD [address] : 1990 AGE: 30 SEX: F [place], [place] [address] LOC: Jeremías.2660 A PHONE #: [phone] EXAM DATE: 08/16/2020 STATUS: ADM IN FAX #: [phone] RAD NO: Page 1 Signed Report (CONTINUED) Patient Name: ROSITA MARIE Unit No: [id number] EXAMS: CPT CODE: [id number] US ABDOMEN COMPLETE 25477 (Continued) No significant fluid accumulation. IMPRESSION: Limited examination secondary to patient discomfort. Question mild d ependent gallbladder sludge without cholelithiasis, inflammation, or biliary ductal dilatation. Nonvisualized pancreas. SL: TPAINTER-H at 0024 Reported and signed by: Deondre Bueno MD CC: Zulay Brooke MD; Kaylah Coelho MD Technologist: Pippa Figueroa RDMS, RVT Probe: Trnscrbd D/ (0024) GerardR.TP6 Orig Print D/T: S: 08/17/2020 (0027) [facility] NAME: ROSITA MARIE Radiology Department PHYS: Kaylah Knapp MD [address] : 1990 AGE: 30 SEX: F [place], [place] [address] LOC: F.2660 A PHONE #: [phone] EXAM DATE: 08/16/2020 STATUS: ADM IN FAX #: [phone] RAD NO: Page 2 Signed Report Patient Name: ROSITA MARIE Unit No: [id number] EXAMS: CPT CODE: [id number] US ABDOMEN COMPLETE 38798 (Continued) [facility] NAME: ROSITA MARIE Radiology Department PHYS: Kaylah Knapp MD [address] : 1990 AGE: 30 SEX: F [place] [address] LOC: F.2660 A PHONE #: [phone] EXAM DATE: 08/16/2020 STATUS: ADM IN FAX #:[phone] RAD NO: Page 3 Signed Report- XR ABDOMEN 1 V 2020-08-16 21:41:00 [facility] 1990 Sex: F Patient Name: ROSITA MARIE Unit No: [id number] EXAMS: CPT CODE: [id number] XR ABDOMEN 1 V 95582 PortableAP abdomen, 2 radiographs. INDICATION: Abdominal pain [...] Orig Print D/T: S: 08/16/2020 (2143) [facility] NAME: ROSITA MARIE Radiology Department PHYS: Kaylah Knapp MD [address] : 1990 AGE: 30 SEX: F [place], [place] [address] LOC: Chani2660 A PHONE #: [phone] EXAM DATE: 08/16/2020 STATUS: ADM IN FAX #: [phone] RAD NO: Page 1 Signed Report- US TRANSVAGINAL W/[id number] 18:34:00[facility] : 1990 Sex: F Patient Name: ROSITA MARIE Unit No: [id number] EXAMS: CPT CODE: [id number] US TRANSVAGINAL W/PELVIS 00576SEFNZQIGF: PELVIC ULTRASOUND INDICATION: Pelvic pain. Vomiting. Abdominal [...] MD Technologist: Codie Sierra RDMS, RVT Probe: [id number] Trnscrbd D/ (1833) t.SDR.SG9 Orig Print D/T: S: 08/15/2020 (1836) [facility] NAME: AILEEN MARIESEY Radiology Department PHYS: Leonardo Sepulveda [address] : 1990 AGE: 30 SEX: F [place] [address] LOC: ChaniERS PHONE #: [phone] EXAM DATE: 08/15/2020 STATUS: REG ER FAX #: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
--- NOTE | 2023-07-23 14:58 | ER ---
Nurse's Notes [facility] Name: Lona Marie Age: 33 yrs Sex: Female : 1990 Arrival Date: 07/23/2023 Time: 13:42 Bed IW10 Private MD: Diagnosis: Foreign body in esophagus Presentation: 07/23 14:04 Chief complaint: Patient states: Was choking with something, states she coughed it out nj1 on arrival to ED. Feels good right now. Coronavirus screen: Vaccine status: Patient reports receiving the 2nd dose of the covid vaccine. Ebola Screen: Patient denies travel to an Ebola-affected area in the 21 days before illness onset. Initial Sepsis Screen: Does the patient meet any 2 criteria? No. Patient's initial sepsis screen is negative. Does the patient have a suspected source of infection? No. Patient's initial sepsis screen is negative. Risk Assessment: Do you want to hurt yourself or someone else? Patient reports no desire to harm self or others. Onset of symptoms was July 23, 2023. 14:04 Method Of Arrival: Ambulatory nj 14:04 Acuity: SMITH 4 nj1 Triage Assessment: 14:09 General: Appears in no apparent distress. comfortable, Behavior is calm, cooperative, nj1 appropriate for age. Neuro: Level of Consciousness is awake, alert, obeys commands, Oriented to person, place, time, situation. Cardiovascular: Patient's skin is warm and dry. Respiratory: Airway is patent Respiratory effort is even, unlabored. 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 - Social history:: Smoking status: Patient reports the use of cigarette tobacco products, smokes one-half pack cigarettes per day. Vital Signs: 14:04 BP 132 / 88; Pulse 84; Resp 18; Temp 97.6(O); Pulse Ox 100% ; Weight 67.59 kg; Height 5 [facility] ft. 3 in. ; 14:04 Body Mass Index 26.39 (67.59 kg, 160.02 cm) [facility] ED Course: 13:43 Patient arrived in ED. rg4 13:49 [facility]uly Sanders FNP [facility] 13:49 Aj Doe MD is Attending Physician. [facility] 14:07 Triage completed. [facility] 14:09 Arm band placed on right wrist. il1 14:10 No provider procedures requiring assistance completed. il1 14:10 Patient did not have IV access during this emergency room visit. il1 Administered Medications: No medications were administered Outcome: 13:57 Discharge ordered by MD. [facility] 14:10 Discharged to home ambulatory, [facility] 14:10 Condition: stable 14:10 Discharge instructions given to patient, Instructed on discharge instructions, follow up and referral plans. Demonstrated understanding of instructions, follow-up care, Pt choose not to wait for paperwork to be given. Discharge instructions given verbally by this RN and earlier by JUJU. 14:10 Patient left the ED. [facility] Signatures: Candy Rodríguez rg4 Yuly Sanders FNP FNP [facility] Ange Mackey RN RN nj1 Corrections: (The following items were deleted from the chart) 14:59 14:10 Discharge instructions given to patient, Instructed on discharge instructions, [facility] follow up and referral plans. Demonstrated understanding of instructions, follow-up care, [facility] 14:59 14:58 Patient left the ED. nj1 [facility]
[2023-07-23 15:46] VITALS: BP 132/88; TEMP 97.6; O2SAT 100
== END 2023-07-23 14:58 | disposition home or self-care (01) ==
LOC: ER 13:42
DX: T18.128A Food in esophagus causing other injury, initial encounter (principal); F17.210 Nicotine dependence, cigarettes, uncomplicated; Z88.1 Allergy status to other antibiotic agents; Z88.5 Allergy status to narcotic agent; Z88.8 Allergy status to other drugs, medicaments and biological substances; Z91.040 Latex allergy status; Z91.048 Other nonmedicinal substance allergy status
CPT/HCPCS: 99282

== ENCOUNTER 2023-07-23 15:02 | Emergency (ER) | payer OTHER ==
[2023-07-23] MEDS ORDERED: DIAZEPAM 5 MG TABLET ONE (15:59)
--- NOTE | 2023-07-23 16:30 | ER ---
Nurse's Notes [facility] Name: Lona Marie Age: 33 yrs Sex: Female : 1990 Arrival Date: 07/23/2023 Time: 15:02 Bed Treatment Private MD: Diagnosis: Anxiety disorder, unspecified Presentation: 07/23 15:29 Chief complaint: Choked on a piece of food at lunch, was able to clear it out but then hb started feeling very anxious. 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 Coronavirus screen: At this time, the client does not indicate any symptoms associated with coronavirus-19. Ebola Screen: No symptoms or risks identified at this time. Initial Sepsis Screen: Does the patient meet any 2 criteria? No. Patient's initial sepsis screen is negative. Does the patient have a suspected source of infection? No. Patient's initial sepsis screen is negative. Risk Assessment: Do you want to hurt yourself or someone else? Patient reports no desire to harm self or others. Onset of symptoms was July 23, 2023. 15:29 Method Of Arrival: Ambulatory hb 15:29 Acuity: SMITH 4 hb Triage Assessment: 15:23 General: Appears uncomfortable, Behavior is anxious. Pain: Denies pain. Neuro: Level of ha1 Consciousness is awake, alert, obeys commands, Oriented to person, place, time, situation. Neuro: Reports anxiety attack . Cardiovascular: Capillary refill < 3 seconds Patient's skin is warm and dry. Respiratory: Airway is patent Respiratory effort is even, unlabored, Respiratory pattern is regular, symmetrical. GI: Abdomen is round non-distended. Musculoskeletal: Circulation, motion, and sensation intact. Range of motion: intact in all extremities. 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 - Social history:: Smoking status: Patient denies any tobacco usage or history of. - Family history:: not pertinent. - Hospitalizations: : No recent hospitalization is reported. Screenin:23 [facility] ED Fall Risk Assessment (Adult) History of falling in the last 3 months, ha1 including since admission No falls in past 3 months (0 pts) Confusion or Disorientation No (0 pts) Intoxicated or Sedated No (0 pts) Impaired Gait No (0 pts) Mobility Assist Device Used No (0 pt) Altered Elimination No (0 pt) Score/Fall Risk Level 0 - 2 = Low Risk Oriented to surroundings, Maintained a safe environment, Educated pt \T\ family on fall prevention, incl call for assistance when getting out of bed, Hourly rounding (assess needs \T\ fall precautionary measures) done. Abuse screen: Denies threats or abuse. Denies injuries from another. Nutritional screening: No deficits noted. Tuberculosis screening: No symptoms or risk factors identified. Assessment: 15:23 Reassessment: see triage notes. ha1 Vital Signs: 15:29 BP 130 / 76; Pulse 89; Resp 16; Temp 98.3; Pulse Ox 100% on R/A; Weight 63.59 kg; hb Height 5 ft. 3 in. ; Pain 0/10; 16:48 BP 118 / 85; Pulse 80; Resp 17 S; Pulse Ox 100% on R/A; ha1 15:29 Body Mass Index 24.83 (63.59 kg, 160.02 cm) hb 15:29 Pain Scale: Adult hb ED Course: 15:05 Patient arrived in ED. rg4 15:15 Jose Roberto Baker MD is Attending Physician. rn 15:23 Patient has correct armband on for positive identification. Placed in gown. Bed in low ha1 position. Call light in reach. Adult w/ patient. 15:30 Triage completed. hb 15:31 Arm band placed on. hb 16:30 Frank Shelton MD is Referral Physician. rn 16:49 Provided Education on: need to follow up with Dr. Shelton. ha1 16:49 No provider procedures requiring assistance completed. Patient did not have IV access ha1 during this emergency room visit. Administered Medications: 15:32 CANCELLED (Duplicate Order): diazepam2 mg PO once rn 15:50 Drug: Diazepam PO 5 mg PO once Route: PO; hb 16:45 Follow up: Response: No adverse reaction; Anxiety decreased ha1 Medication: 16:46 VIS not applicable for this client. ha1 Outcome: 16:30 Discharge ordered by . rn 16:49 Discharged to home ambulatory, with family, ha1 16:49 Condition: stable 16:49 Discharge instructions given to patient, family, Instructed on discharge instructions, follow up and referral plans. Demonstrated understanding of instructions, follow-up care, Prescriptions given X 1, 2, 16:50 Patient left the ED. ha1 Signatures: Jose Roberto Baker MD MD rn Baxter, Heather, RN RN hb Garcia, Rubi 4 Jacquelyn Bunch, HO RN ha1 Corrections: (The following items were deleted from the chart) 15:32 15:29 BP 130 / 76; Pulse 89bpm; Resp 16bpm; Pulse Ox 100% RA; Temp 98.3F; Pain 0/10, hb Adult; hb
--- NOTE | 2023-07-23 16:30 | EDPHYS ---
Physician Documentation [facility] Name: Lona Winter Age: 33 yrs Sex: Female : 1990 Arrival Date: 07/23/2023 Time: 15:02 Bed Treatment Private MD: ED Physician Jose Roberto Baker HPI: 07/23 15:49 This 33 yrs old Female presents to ER via Ambulatory with complaints of Anxiety. rn 15:49 The patient presents to the emergency department with anxiety. Onset: The rn symptoms/episode began/occurred today. Severity of symptoms: At their worst the symptoms were moderate in the emergency department the symptoms are unchanged. The patient has experienced similar episodes in the past. Patient reports here earlier with a possible food bolus stuck in the esophagus, coughed it up or vomited it up right before evaluation and symptoms resolved so was sent home. Patient was on her way home when had a panic attack turned around and came back. Used to take Valium p.o. and was switched to Cymbalta and Klonopin. Took A Klonopin prior to coming in and did not resolve symptoms. Reports anxiety and panic attack at this moment. No chest pain.. 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 - Social history:: Smoking status: Patient denies any tobacco usage or history of. - Family history:: not pertinent. - Hospitalizations: : No recent hospitalization is reported. ROS: 15:49 Constitutional: Negative for fever, chills, and weight loss, Cardiovascular: Negative rn for chest pain, palpitations, and edema, Respiratory: Positive for shortness of breath Abdomen/GI: Negative for abdominal pain, nausea, vomiting, diarrhea, and constipation, MS/Extremity: Negative for injury and deformity, Skin: Negative for injury, rash, and discoloration, Neuro: Negative for headache, weakness, numbness, tingling, and seizure, Exam: 15:49 Constitutional: This is a well developed, well nourished patient who is awake, alert, rn and in no acute distress. Seems anxious but not crying like the previous visit I had seen her. Overall looks a little better. ENT: No stridor Respiratory: Speaking full sentences, unlabored. Neuro: Awake and alert, GCS 15 Vital Signs: 15:29 BP 130 / 76; Pulse 89; Resp 16; Temp 98.3; Pulse Ox 100% on R/A; Weight 63.59 kg; hb Height 5 ft. 3 in. ; Pain 0/10; 16:48 BP 118 / 85; Pulse 80; Resp 17 S; Pulse Ox 100% on R/A; ha1 15:29 Body Mass Index 24.83 (63.59 kg, 160.02 cm) hb 15:29 Pain Scale: Adult hb MDM: 15:15 Patient medically screened. rn 16:28 Differential diagnosis: Anxiety. rn 16:28 Data reviewed: vital signs, nurses notes, old medical records, and as a result, I will inpatient services rn patient. Counseling: I had a detailed discussion with the patient and/or guardian regarding the historical points, exam findings, and any diagnostic results supporting the discharge/admit diagnosis, the need for outpatient follow up, to return to the emergency department if symptoms worsen or persist or if there are any questions or concerns that arise at home. Response to treatment: the patient's symptoms have markedly improved after treatment, and as a result, I will discharge patient. Special discussion: I discussed with the patient/guardian in detail that at this point there is no indication for admission to the hospital. It is understood, however, that if the symptoms persist or worsen the patient needs to return immediately for re-evaluation. Based on the history and exam findings, there is no indication for further emergent testing or inpatient evaluation. I discussed with the patient/guardian the need to see the psychiatrist for further evaluation of the symptoms. ED course: Patient feels much better, feels calm, improved after Valium. Patient states will call her psychiatrist to change Klonopin prescription to Valium. Has taken Valium before and was already having conversations with her psychiatrist for Valium prescription if her Klonopin did not work. Patient also under pain management so we will let pain management and psychiatrist handle the prescriptions.. Administered Medications: 15:32 CANCELLED (Duplicate Order): diazepam2 mg PO once rn 15:50 Drug: Diazepam PO 5 mg PO once Route: PO; 16:45 Follow up: Response: No adverse reaction; Anxiety decreased ha1 Disposition Summary: 07/23/23 16:30 Discharge Ordered Notes: Location: Home rn Problem: an ongoing problem rn Symptoms: have improved rn Condition: Stable rn Diagnosis - Anxiety disorder, unspecified rn Followup: rn - With: Frank Shelton MD - When: As needed - Reason: Recheck today's complaints, Re-evaluation by your physician Discharge Instructions: - Discharge Summary Sheet rn - Panic Attack rn - Generalized Anxiety Disorder, Adult rn - Managing Anxiety, Adult rn Forms: - Medication Reconciliation Form rn - Thank You Letter rn - Antibiotic ostomy rn - Prescription Opioid Use rn - Patient Portal Instructions rn - Leadership Thank You Letter rn Signatures: Jose Roberto Baker MD MD rn Baxter, Heather, RN RN Jacquelyn Bunch RN ha1 Corrections: (The following items were deleted from the chart) 15:32 15:15 Diazepam PO 2 mg PO once ordered. rn rn
[2023-07-23 17:11] VITALS: O2SAT 100
[2023-07-23 17:12] VITALS: BP 130/76; TEMP 98.3
== END 2023-07-23 16:50 | disposition home or self-care (01) ==
LOC: ER 15:02
DX: F41.9 Anxiety disorder, unspecified (principal)
CPT/HCPCS: 99283

== ENCOUNTER 2023-07-27 15:57 | Emergency (ER) | payer OTHER ==
--- OUTSIDE RECORDS SUMMARY | 2023-07-27 16:26 | XMS REPORT | Continuity of Care Document ---
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 Medical 1 day, Branch THEN 1 tablet daily for 4 days. azithromyci 2022-09- Yes [id number] Take 2 Univers n 250 mg 0-24 10-29 tablets by ity of tablet 00:00: 04:59 mouth [place] 00 :00 daily for Medical 1 day, Branch THEN 1 tablet daily for 4 days. azithromyci 2022-09- Yes [id number] Take 2 Univers n 250 mg 0-24 10-29 tablets by ity of tablet 00:00: 04:59 mouth [place] 00 :00 daily for Medical 1 day, Branch THEN 1 tablet daily for 4 days. gabapentin 2022-09- No gabapentin Univers 300 mg 0-05 10-05 300 mg ity of capsule 11:06: 00:00 capsule [place] 23 :00 [facility] Branch gabapentin 2022-09- No gabapentin Univers 300 mg 0-05 10-05 300 mg ity of capsule 11:06: 00:00 capsule [place] 23 :00 [facility] Branch adalimumab 2022-09 Yes 40mg inject 1 Uni vers (HUMIRA) 40 0-05 Syringe ity o f mg/0.8 mL 10:54: under the Z[facility] as injection 07 skin. Medical Branch ibuprofen 2022-09 Yes ibuprofen Uni vers 800 mg 0-05 800 mg ity of tablet 10:54: tablet [address] [place] [address] Branch levETIRAcet 2022-09 Yes TWICE Unive rs am 500 mg 0-05 DAILY. ity of tablet 10:54: [address] [place] [address] Branch famotidine 2022-09 Yes famotidine U nivers 20 mg 0-05 20 mg ity of tablet 10:54: tablet [address] [place] [address] Branch clonazePAM 2022-09 Yes clonazepam U nivers [...] 800 mg ity of tablet 10:54: tablet [address] [place] [address] levETIRAcet 2022-09 Yes TWICE Unive rs am 500 mg 0-05 DAILY. ity of tablet 10:54: [address] [place] [address] famotidine 2022-09 Yes famotidine U nivers 20 mg 0-05 20 mg ity of tablet 10:54: tablet [address] [place] [address] clonazePAM 2022-09 Yes clonazepam U nivers 0.5 mg 0-05 0.5 mg ity of tablet 10:54: tablet [place] [address] TAKE 1 Medical TABLET BY Branch MOUTH [...] 800 mg ity of tablet 10:54: tablet [address] [place] [address] levETIRAcet 2022-09 Yes TWICE Unive rs am 500 mg 0-05 DAILY. ity of tablet 10:54: [address] [place] [address] famotidine 2022-09 Yes famotidine U nivers 20 mg 0-05 20 mg ity of tablet 10:54: tablet [address] [place] [address] clonazePAM 2022-09 Yes clonazepam U nivers 0.5 mg 0-05 0.5 mg ity of tablet 10:54: tablet [place] [address] TAKE 1 Medical TABLET BY Branch MOUTH [...] 800 mg ity of tablet 10:54: tablet [address] [place] [address] levETIRAcet 2022-09 Yes TWICE Unive rs am 500 mg 0-05 DAILY. ity of tablet 10:54: [address] [place] [address] famotidine 2022-09 Yes famotidine U nivers 20 mg 0-05 20 mg ity of tablet 10:54: tablet [address] clonazePAM 2022-09 Yes clonazepam U nivers 0.5 mg 0-05 0.5 mg ity of tablet 10:54: tablet [place] [address] TAKE 1 Medical TABLET BY Branch MOUTH [...] 800 mg ity of tablet 10:54: tablet [address] levETIRAcet 2022-09 Yes TWICE Unive rs am 500 mg 0-05 DAILY. ity of tablet 10:54: [address] famotidine 2022-09 Yes famotidine U nivers 20 mg 0-05 20 mg ity of tablet 10:54: tablet [address] clonazePAM 2022-09 Yes clonazepam U nivers 0.5 mg 0-05 0.5 mg ity of tablet 10:54: tablet [place] [address] TAKE 1 Medical TABLET BY Branch MOUTH [...] 800 mg ity of tablet 10:54: tablet [address] levETIRAcet 2022-09 Yes TWICE Unive rs am 500 mg 0-05 DAILY. ity of tablet 10:54: [address] [place] [address] famotidine 2022-09 Yes famotidine U nivers 20 mg 0-05 20 mg ity of tablet 10:54: tablet [address] clonazePAM 2022-09 Yes clonazepam U nivers 0.5 mg 0-05 0.5 mg ity of tablet 10:54: tablet [place] [address] TAKE 1 Medical TABLET BY Branch MOUTH [...] 800 mg ity of tablet 10:54: tablet [facility] levETIRAcet 2022-09 Yes TWICE Unive rs am 500 mg 0-05 DAILY. ity of tablet 10:54: [facility] famotidine 2022-09 Yes famotidine U nivers 20 mg 0-05 20 mg ity of tablet 10:54: tablet [facility] clonazePAM 2022-09 Yes clonazepam U nivers 0.5 [...] 800 mg ity of tablet 10:54: tablet [address] [place] [address] levETIRAcet 2022-09 Yes TWICE Unive rs am 500 mg 0-05 DAILY. ity of tablet 10:54: [facility] famotidine 2022-09 Yes famotidine U nivers 20 mg 0-05 20 mg ity of tablet 10:54: tablet [address] [place] [address] clonazePAM 2022-09 Yes clonazepam U nivers 0.5 mg 0-05 0.5 mg ity of tablet 10:54: tablet [place] TAKE 1 Medical TABLET BY Branch MOUTH [...] 800 mg ity of tablet 10:54: tablet [address] [place] [address] levETIRAcet 2022-09 Yes TWICE Unive rs am 500 mg 0-05 DAILY. ity of tablet 10:54: [address] famotidine 2022-09 Yes famotidine U nivers 20 mg 0-05 20 mg ity of tablet 10:54: tablet [address] clonazePAM 2022-09 Yes clonazepam U nivers 0.5 mg 0-05 0.5 mg ity of tablet 10:54: tablet [place] [address] TAKE 1 Medical TABLET BY Branch MOUTH [...] 800 mg ity of tablet 10:54: tablet [address] levETIRAcet 2022-09 Yes TWICE Unive rs am 500 mg 0-05 DAILY. ity of tablet 10:54: [address] [place] [address] famotidine 2022-09 Yes famotidine U nivers 20 mg 0-05 20 mg ity of tablet 10:54: tablet [address] [place] [address] clonazePAM 2022-09 Yes clonazepam U nivers 0.5 mg 0-05 0.5 mg ity of tablet 10:54: tablet [place] [address] TAKE 1 Medical TABLET BY Branch MOUTH [...] 800 mg ity of tablet 10:54: tablet [address] [place] [address] levETIRAcet 2022-09 Yes TWICE Unive rs am 500 mg 0-05 DAILY. ity of tablet 10:54: [address] [place] [address] famotidine 2022-09 Yes famotidine U nivers 20 mg 0-05 20 mg ity of tablet 10:54: tablet [address] [place] [address] clonazePAM 2022-09 Yes clonazepam U nivers 0.5 [...] 800 mg ity of tablet 10:54: tablet [address] [place] [address] levETIRAcet 2022-09 Yes TWICE Unive rs am 500 mg 0-05 DAILY. ity of tablet 10:54: [address] [place] [address] famotidine 2022-09 Yes famotidine U nivers 20 mg 0-05 20 mg ity of tablet 10:54: tablet [address] [place] [address] clonazePAM 2022-09 Yes clonazepam U nivers 0.5 [...] ical ion Branch aerosol inhaler azithromyci Yes [id number] Take two Univers n 03-02 [id number] on first ity of (ZITHROMAX 00:00: day, take [place] Z-OK) 250 00 one a day Medi shanice mg tablet afterwards Bran ch azelastine 0 Yes [id number] 1{spray Use 1 Univers 137 mcg 03-02 [id number] } [place] in ity of (0.1 %) 00:00: each [place] nasal spray 00 nostril in [facility] morning and 1 [place] in the evening. Use in each nostril as directed azithromyci 0 Yes [id number] Take two Univers n 03-02 [id number] on first ity of (ZITHROMAX 00:00: day, take [place] Z-OK) 250 00 one a day Medi shanice mg tablet afterwards Bran ch azelastine 0 Yes [id number] 1{spray Use 1 Univers 137 mcg 03-02 013313 } [place] in ity of (0.1 %) 00:00: each [place] nasal spray 00 nostril in [facility] morning and 1 [place] in the evening. Use in each nostril as directed azithromyci 0 Yes [id number] Take two Univers n 03-02 [id number] on first ity of (ZITHROMAX 00:00: day, take [place] Z-OK) 250 00 one a day Medi shanice mg tablet afterwards Bran ch azelastine 2023-0 Yes [id number] 1{spray Use 1 Univers 137 mcg 6-27 [id number] } [place] in ity of (0.1 %) 00:00: each [place] nasal spray 00 nostril in [place] the Branch morning and 1 [place] in the evening. Use in each nostril as directed azithromyci 2023-0 Yes [id number] Take two Univers n 6-27 [id number] on first ity of (ZITHROMAX 00:00: day, take [place] Z-OK) 250 00 one a day Medi shanice mg tablet afterwards Bran ch azelastine 2023-0 Yes [id number] 1{spray Use 1 Univers 137 mcg 6-27 970000 } [place] in ity of (0.1 %) 00:00: each [place] nasal spray 00 nostril in [facility] the Branch morning and 1 [place] in the evening. Use in each nostril as directed azithromyci 2023-0 Yes [id number] Take two Univers n 6- [id number] on first ity of (ZITHROMAX 00:00: day, take [place] Z-OK) 250 00 one a day Medi shanice mg tablet afterwards Bran ch azelastine 2023-0 Yes [id number] 1{spray Use 1 [facility] 137 mcg 6-27 [id number] } [place] in ity of (0.1 %) 00:00: each [place] nasal spray 00 nostril in [facility] the Branch morning and 1 [place] in the evening. Use in each nostril as directed azithromyci 2023-0 Yes [id number] Take two Univers n 6-27 [id number] on first ity of (ZITHROMAX 00:00: day, take [place] Z-OK) 250 00 one a day Medi shanice mg tablet afterwards Bran ch azelastine 2023-0 Yes [id number] 1{spray Use 1 [facility] 137 mcg 6-27 [id number] } [place] in ity of (0.1 %) 00:00: each [place] nasal spray 00 nostril in [place] the Branch morning and 1 [place] in the evening. Use in each nostril as directed azithromyci 2023-0 Yes [id number] Take two Univers n 6-27 [id number] on first ity of (ZITHROMAX 00:00: day, take [place] Z-OK) 250 00 one a day Medi shanice mg tablet afterwards Bran ch azelastine 2023-0 Yes [id number] 1{spray Use 1 Univers 137 mcg 6-27 013071 } [place] in ity of (0.1 %) 00:00: each [place] nasal spray 00 nostril in [facility] the Branch morning and 1 [place] in the evening. Use in each nostril as directed azithromyci 2023-0 Yes [id number] Take two Univers n 6 [id number] on first ity of (ZITHROMAX 00:00: day, take [place] Z-OK) 250 00 one a day Medi shanice mg tablet afterwards Bran ch azelastine 3-0 Yes [id number] 1{spray Use 1 Univers 137 mcg 6-27 [id number] } [place] in ity of (0.1 %) 00:00: each [place] nasal spray 00 nostril in [facility] the Branch morning and 1 [place] in the evening. Use in each nostril as directed azithromyci 3-0 Yes [id number] Take two Univers n 6 [id number] on first ity of (ZITHROMAX 00:00: day, take [place] Z-OK) 250 00 one a day Medi shanice mg tablet afterwards Bran ch azelastine 3-0 Yes [id number] 1{spray Use 1 Univers 137 mcg 6-27 455646 } [place] in ity of (0.1 %) 00:00: each [place] nasal spray 00 nostril in [facility] the Branch morning and 1 [place] in the evening. Use in each nostril as directed azithromyci 3-0 Yes [id number] Take two Univers n 6 [id number] on first ity of (ZITHROMAX 00:00: day, take [place] Z-OK) 250 00 one a day Medi shanice mg tablet afterwards Bran ch azelastine 2023-0 Yes [id number] 1{spray Use 1 Univers 137 mcg 6-27 [id number] } [place] in ity of (0.1 %) 00:00: each [place] nasal spray 00 nostril in [facility] the Branch morning and 1 [place] in the evening. Use in each nostril as directed azelastine 2023-0 Yes [id number] 1{spray Use 1 Univers 137 mcg 6-27 [id number] } [place] in ity of (0.1 %) 00:00: each [place] nasal spray 00 nostril in [facility] the Branch morning and 1 [place] in the evening. Use in each nostril as directed azelastine 2023-0 Yes [id number] 1{spray Use 1 Univers 137 mcg 6-27 [id number] } [place] in ity of (0.1 %) 00:00: each [place] nasal spray 00 nostril in Me dical the Branch morning and 1 [place] in the evening. Use in each nostril as directed azelastine 2023-0 Yes [id number] 1{spray Use 1 Univers 137 mcg 6-27 [id number] } [place] in ity of (0.1 %) 00:00: each [place] nasal spray 00 nostril in [place] [facility]ical the Branch morning and 1 [place] in the evening. Use in each nostril as directed azelastine 2023-0 Yes [id number] 1{spray Use 1 Univers 137 mcg 6-27 [id number] } [place] in ity of (0.1 %) 00:00: each [place] nasal spray 00 nostril in [place] [facility]ical the Branch morning and 1 [place] in the evening. Use in each nostril as directed azelastine 2023-0 Yes [id number] 1{spray Use 1 Univers 137 mcg 6-27 [id number] } [place] in ity of (0.1 %) 00:00: each [place] nasal spray 00 nostril in Ga dical the Branch morning and 1 [place] in the evening. Use in each nostril as directed azelastine 2023-0 Yes [id number] 1{spray Use 1 Univers 137 mcg 6-27 [id number] } [place] in ity of (0.1 %) 00:00: each [place] nasal spray 00 nostril in Ga dical the Branch morning and 1 [place] in the evening. Use in each nostril as directed azelastine 2023-0 Yes [id number] 1{spray Use 1 Univers 137 mcg 6-27 [id number] } [place] in ity of (0.1 %) 00:00: each [place] nasal spray 00 nostril in Ga dical the Branch morning and 1 [place] in the evening. Use in each nostril as directed azelastine 2023-0 Yes [id number] 1{spray Use 1 Univers 137 mcg 6-27 [id number] } [place] in ity of (0.1 %) 00:00: each [place] nasal spray 00 nostril in Me dical the Branch morning and 1 [place] in the evening. Use in each nostril as directed azelastine 2023-0 Yes [id number] 1{spray Use 1 Univers 137 mcg 6-27 [id number] } [place] in ity of (0.1 %) 00:00: each [place] nasal spray 00 nostril in Ga dical the Branch morning and 1 [place] in the evening. Use in each nostril as directed azelastine 2023-0 Yes [id number] 1{spray Use 1 Univers 137 mcg 6-27 [id number] } [place] in ity of (0.1 %) 00:00: each [place] nasal spray 00 nostril in Ga dical the Branch morning and 1 [place] in the evening. Use in each nostril as directed azelastine 3-0 Yes [id number] 1{spray Use 1 Univers 137 mcg 6-27 [id number] } [place] in ity of (0.1 %) 00:00: each [place] nasal spray 00 nostril in Ga dical the Branch morning and 1 [place] in the evening. Use in each nostril as directed azelastine 3-0 Yes [id number] 1{spray Use 1 Univers 137 mcg 6-27 [id number] } [place] in ity of (0.1 %) 00:00: each [place] nasal spray 00 nostril in [place] [facility] the Branch morning and 1 [place] in the evening. Use in each nostril as directed azithromyci 2022-0 2022- No [id number] Take two Univers n 6-27 06-10 [id number] on first ity of (ZITHROMAX 00:00: 00:00 day, take [place] Z-OK) 250 00 :00 one a day Medi shanice mg tablet afterwards Bran ch azithromyci 2022-0 2022- No [id number] Take two Univers n 6-27 06-10 [id number] on first ity of (ZITHROMAX 00:00: 00:00 day, take [place] Z-OK) 250 00 :00 one a day Medi shanice mg tablet afterwards Bran ch morpHINE (4 2022- No 4mg 4 mg, Slow Univers mg/mL) 01-21 IV Push, ity of injection 4 23:45: 23:08 ONCE, 1 [place] mg 00 :00 dose, On Medical [facility] 01/21/23 at 1845, Routine ondansetron 2022- No 4mg 4 mg, Slow Univers (ZOFRAN 01-21 IV Push, ity of (PF)) 23:00: 23:08 ONCE, 1 [place] injection 4 00 :00 dose, On Medi shanice mg [facility] 01/21/23 at 1800, LUPE NaCl 0.9% 2022- No 1000mL at 999 Uni vers (NS) IV 01-21 mL/hr, ity of infusion 21:30: 23:45 Intravenou [place] 1,000 mL 00 :00 s, ONCE, 1 Medic al dose, On [facility] 01/21/23 at 1630, Routine FENTanyl PF No 50ug 50 mcg, Un rtavis (SUBLIMAZE 01-21 Slow IV ity o f (PF)) 21:15: 20:56 Push, [place] injection 00 :00 ONCE, 1 Medical 50 mcg dose, On [facility] 01/21/23 at 1615, Routine iopamidol 2022- No [id number] 50mL 50 mL, Univers (ISOVUE 01-21 Intravenou ity o f 370-500 mL) 21:00: 21:02 s, ONCE, 1 [place] injection 00 :00 dose, On Medica l [address] [facility] 01/21/23 at 1600, Routine ondansetron 2022- No 4mg 4 mg, Slow Univers (ZOFRAN 01-21 IV Push, ity of (PF)) 20:30: 20:55 ONCE, 1 [place] injection 4 00 :00 dose, On Medi shanice mg [facility] 01/21/23 at 1530, LUPE sucralfate 2022- No [id number] 1g Take 1 Univers 1 gram 01-21 tablet by ity of tablet 00:00: 04:59 mouth [place] 00 :00 before Medical meals and Branch at bedtime for 14 days. proMETHazin 2022-0 2022- No 6.25mg 6.25 mg, Univers e 01-15 IV ity of (PHENERGAN) 16:00: 16:15 Piggyback, [place] 6.25 mg in 00 :00 at 200 Medical NaCl 0.9% mL/hr Branch (NS) 50 mL Administer piggyback over 15 Minutes, ONCE, 1 dose, On Wed01/15/23 at 1100, LUPE NaCl 0.9% 2022-0 2022- No 1000mL at 999 Uni vers (NS) bolus 01-15 mL/hr, ity of infusion 15:00: 16:19 1,000 mL, [facility] as 1,000 mL 00 :00 IV Medical Infusion, Branch ONCE, 1 dose, On Wed01/15/23 at 1000, STAT famotidine 2022-2022- No 20mg 20 mg, Univ ers (PEPCID 01-15 Slow IV ity of (PF)) 14:45: 14:48 Push, [place] injection 00 :00 ONCE, 1 Medical 20 mg dose, On Branch Wed01/15/23 at 0945, LUPE proMETHazin 2022-2022- No 6.25mg 6.25 mg, Univers e 01-15 [...] shanice 1:1:1 Fri Branch ([facility] 01/15/23 at [facility]) 0600, oral Routine suspension 15 mL maalox:diph 2022-0 Yes [id number] 15mL Take 15 mL [facility] enhydrAMINE 5-12 by mouth ity of :lidocaine 00:00: as needed [place] 2 % viscous 00 for Oral Medi shanice 1:1:1 mucositis Branch (EPIGASTRI C PAIN). ondansetron 2022-0 Yes [id number] 4mg Take 1 Univers (ZOFRAN) 4 5-12 tablet by ity of mg tablet 00:00: mouth [place] 00 every 8 Medical (eight) Branch hours as needed for Nausea and Vomiting (N/V). maalox:diph 2022-0 Yes [id number] 15mL Take 15 mL [facility] enhydrAMINE 5-12 by mouth ity of :lidocaine 00:00: as needed [place] 2 % viscous 00 for Oral Medi shanice 1:1:1 mucositis Branch (EPIGASTRI C PAIN). ondansetron 2022-0 Yes [id number] 4mg Take 1 Univers (ZOFRAN) 4 5-12 tablet by ity of mg tablet 00:00: mouth [place] 00 every 8 Medical (eight) Branch hours as needed for Nausea and Vomiting (N/V). proMETHazin 2022-0 Yes [id number] 25mg Take 1 Univers e 25 mg 5-12 tablet by ity of tablet 00:00: mouth [place] 00 every 6 Medical (six) Branch hours as needed for Nausea and Vomiting (N/V). sucralfate 2022-0 Yes [id number] 1g Take 1 U nivers 1 gram 5-12 tablet by ity of tablet 00:00: mouth [place] 00 before Medical meals and Branch at bedtime. esomeprazol 2022-0 Yes [id number] 40mg Take 1 Univers e (NEXIUM) 5-12 capsule by ity of 40 mg 00:00: mouth [place] capsule 00 daily with Medica l breakfast. Branch maalox:diph 2022-0 Yes [id number] 15mL Take 15 mL [facility] enhydrAMINE 5-12 by mouth ity of :lidocaine 00:00: as needed [place] 2 % viscous 00 for Oral Medi shanice 1:1:1 mucositis Branch (EPIGASTRI C PAIN). ondansetron 2022-0 Yes [id number] 4mg Take 1 Univers (ZOFRAN) 4 5-12 tablet by ity of mg tablet 00:00: mouth [place] 00 every 8 Medical (eight) Branch hours as needed for Nausea and Vomiting (N/V). proMETHazin 3-0 Yes [id number] 25mg Take 1 Univers e 25 mg 5-12 tablet by ity of tablet 00:00: mouth [place] 00 every 6 Medical (six) Branch hours as needed for Nausea and Vomiting (N/V). sucralfate 3-0 Yes [id number] 1g Take 1 U nivers 1 gram 5-12 tablet by ity of tablet 00:00: mouth [place] 00 before Medical meals and Branch at bedtime. esomeprazol 3-0 Yes [id number] 40mg Take 1 Univers e (NEXIUM) 5-12 capsule by ity of 40 mg 00:00: mouth [place] capsule 00 daily with Medica l breakfast. Branch maalox:diph 3-0 Yes [id number] 15mL Take 15 mL [facility] enhydrAMINE 5-12 by mouth ity of :lidocaine 00:00: as needed [place] 2 % viscous 00 for Oral Medi shanice 1:1:1 mucositis Branch (EPIGASTRI C PAIN). proMETHazin 3-0 Yes [id number] 25mg Take 1 Univers e 25 mg 5-12 tablet by ity of tablet 00:00: mouth [place] 00 every 6 Medical (six) Branch hours as needed for Nausea and Vomiting (N/V). sucralfate 3-0 Yes [id number] 1g Take 1 U nivers 1 gram 5-12 tablet by ity of tablet 00:00: mouth [place] 00 before Medical meals and Branch at bedtime. esomeprazol 3-0 Yes [id number] 40mg Take 1 Univers e (NEXIUM) 5-12 capsule by ity of 40 mg 00:00: mouth [place] capsule 00 daily with Medica l breakfast. Branch maalox:diph 3-0 Yes [id number] 15mL Take 15 mL [facility] enhydrAMINE 5-12 by mouth ity of :lidocaine 00:00: as needed [place] 2 % viscous 00 for Oral Medi shanice 1:1:1 mucositis Branch (EPIGASTRI C PAIN). proMETHazin 2023-0 Yes [id number] 25mg Take 1 Univers e 25 mg 5-12 tablet by ity of tablet 00:00: mouth [place] 00 every 6 Medical (six) Branch hours as needed for Nausea and Vomiting (N/V). sucralfate 2023-0 Yes [id number] 1g Take 1 U nivers 1 gram 5-12 tablet by ity of tablet 00:00: mouth [place] 00 before Medical meals and Branch at bedtime. esomeprazol 2023-0 Yes [id number] 40mg Take 1 Univers e (NEXIUM) 5-12 capsule by ity of 40 mg 00:00: mouth [place] capsule 00 daily with Medica l breakfast. Branch maalox:diph 2023-0 Yes [id number] 15mL Take 15 mL [facility] enhydrAMINE 5-12 by mouth ity of :lidocaine 00:00: as needed [place] 2 % viscous 00 for Oral Medi shanice 1:1:1 mucositis Branch (EPIGASTRI C PAIN). proMETHazin 2023-0 Yes [id number] 25mg Take 1 Univers e 25 mg 5-12 tablet by ity of tablet 00:00: mouth [place] 00 every 6 Medical (six) Branch hours as needed for Nausea and Vomiting (N/V). sucralfate 3-0 Yes [id number] 1g Take 1 U nivers 1 gram 5-12 tablet by ity of tablet 00:00: mouth [place] 00 before Medical meals and Branch at bedtime. esomeprazol 3-0 Yes [id number] 40mg Take 1 Univers e (NEXIUM) 5-12 capsule by ity of 40 mg 00:00: mouth [place] capsule 00 daily with Medica l breakfast. Branch maalox:diph 3-0 Yes [id number] 15mL Take 15 mL [facility] enhydrAMINE 5-12 by mouth ity of :lidocaine 00:00: as needed [place] 2 % viscous 00 for Oral Medi shanice 1:1:1 mucositis Branch (EPIGASTRI C PAIN). proMETHazin 2023-0 Yes [id number] 25mg Take 1 Univers e 25 mg 5-12 tablet by ity of tablet 00:00: mouth [place] 00 every 6 Medical (six) Branch hours as needed for Nausea and Vomiting (N/V). sucralfate 2023-0 Yes [id number] 1g Take 1 U nivers 1 gram 5-12 tablet by ity of tablet 00:00: mouth [place] 00 before Medical meals and Branch at bedtime. esomeprazol 2023-0 Yes [id number] 40mg Take 1 Univers e (NEXIUM) 5-12 capsule by ity of 40 mg 00:00: mouth [place] capsule 00 daily with Medica l breakfast. Branch maalox:diph 2023-0 Yes [id number] 15mL Take 15 mL [facility] enhydrAMINE 5-12 by mouth ity of :lidocaine 00:00: as needed [place] 2 % viscous 00 for Oral Medi shanice 1:1:1 mucositis Branch (EPIGASTRI C PAIN). proMETHazin 3-0 Yes [id number] 25mg Take 1 Univers e 25 mg 5-12 tablet by ity of tablet 00:00: mouth [place] 00 every 6 Medical (six) Branch hours as needed for Nausea and Vomiting (N/V). sucralfate 2023-0 Yes [id number] 1g Take 1 U nivers 1 gram 5-12 tablet by ity of tablet 00:00: mouth [place] 00 before Medical meals and Branch at bedtime. esomeprazol 3-0 Yes [id number] 40mg Take 1 Univers e (NEXIUM) 5-12 capsule by ity of 40 mg 00:00: mouth [place] capsule 00 daily with Medica l breakfast. Branch maalox:diph 3-0 Yes [id number] 15mL Take 15 mL [facility] enhydrAMINE 5-12 by mouth ity of :lidocaine 00:00: as needed [place] 2 % viscous 00 for Oral Medi shanice 1:1:1 mucositis Branch (EPIGASTRI C PAIN). proMETHazin 3-0 Yes [id number] 25mg Take 1 Univers e 25 mg 5-12 tablet by ity of tablet 00:00: mouth [place] 00 every 6 Medical (six) Branch hours as needed for Nausea and Vomiting (N/V). sucralfate 2023-0 Yes [id number] 1g Take 1 U nivers 1 gram 5-12 tablet by ity of tablet 00:00: mouth [place] 00 before Medical meals and Branch at bedtime. esomeprazol 2023-0 Yes [id number] 40mg Take 1 Univers e (NEXIUM) 5-12 capsule by ity of 40 mg 00:00: mouth [place] capsule 00 daily with Medica l breakfast. Branch maalox:diph 3-0 Yes [id number] 15mL Take 15 mL [facility] enhydrAMINE 5-12 by mouth ity of :lidocaine 00:00: as needed [place] 2 % viscous 00 for Oral Medi shanice 1:1:1 mucositis Branch (EPIGASTRI C PAIN). proMETHazin 3-0 Yes [id number] 25mg Take 1 [facility] e 25 mg 5-12 tablet by ity of tablet 00:00: mouth [place] 00 every 6 Medical (six) Branch hours as needed for Nausea and Vomiting (N/V). sucralfate 2023-0 Yes [id number] 1g Take 1 U nivers 1 gram 5-12 tablet by ity of tablet 00:00: mouth [place] 00 before Medical meals and Branch at bedtime. esomeprazol 3-0 Yes [id number] 40mg Take 1 [facility] e (NEXIUM) 5-12 capsule by ity of 40 mg 00:00: mouth [place] capsule 00 daily with Medica l breakfast. Branch maalox:diph 2022-0 Yes [id number] 15mL Take 15 mL [facility] enhydrAMINE 5-12 by mouth ity of :lidocaine 00:00: as needed [place] 2 % viscous 00 for Oral Medi shanice 1:1:1 mucositis Branch (EPIGASTRI C PAIN). proMETHazin 3-0 Yes [id number] 25mg Take 1 [facility] e 25 mg 5-12 tablet by ity of tablet 00:00: mouth [place] 00 every 6 Medical (six) Branch hours as needed for Nausea and Vomiting (N/V). sucralfate 3-0 Yes [id number] 1g Take 1 U nivers 1 gram 5-12 tablet by ity of tablet 00:00: mouth [place] 00 before Medical meals and Branch at bedtime. esomeprazol 2023-0 Yes [id number] 40mg Take 1 [facility] e (NEXIUM) 5-12 capsule by ity of 40 mg 00:00: mouth [place] capsule 00 daily with Medica l breakfast. Branch maalox:diph 3-0 Yes [id number] 15mL Take 15 mL [facility] enhydrAMINE 5-12 by mouth ity of :lidocaine 00:00: as needed [place] 2 % viscous 00 for Oral Medi shanice 1:1:1 mucositis Branch (EPIGASTRI C PAIN). proMETHazin 2023-0 Yes [id number] 25mg Take 1 [facility] e 25 mg 5-12 tablet by ity of tablet 00:00: mouth [place] 00 every 6 Medical (six) Branch hours as needed for Nausea and Vomiting (N/V). sucralfate 2023-0 Yes [id number] 1g Take 1 U nivers 1 gram 5-12 tablet by ity of tablet 00:00: mouth [place] 00 before Medical meals and Branch at bedtime. esomeprazol 2023-0 Yes [id number] 40mg Take 1 [facility] e (NEXIUM) 5-12 capsule by ity of 40 mg 00:00: mouth [place] capsule 00 daily with Medica l breakfast. Branch maalox:diph 2023-0 Yes [id number] 15mL Take 15 mL [facility] enhydrAMINE 5-12 by mouth ity of :lidocaine 00:00: as needed [place] 2 % viscous 00 for Oral Medi shanice 1:1:1 mucositis Branch (EPIGASTRI C PAIN). proMETHazin 3-0 Yes [id number] 25mg Take 1 [facility] e 25 mg 5-12 tablet by ity of tablet 00:00: mouth [place] 00 every 6 Medical (six) Branch hours as needed for Nausea and Vomiting (N/V). sucralfate 3-0 Yes [id number] 1g Take 1 U nivers 1 gram 5-12 tablet by ity of tablet 00:00: mouth [place] 00 before Medical meals and Branch at bedtime. esomeprazol 2023-0 Yes [id number] 40mg Take 1 [facility] e (NEXIUM) 5-12 capsule by ity of 40 mg 00:00: mouth [place] capsule 00 daily with Medica l breakfast. Branch maalox:diph 2023-0 Yes [id number] 15mL Take 15 mL [facility] enhydrAMINE 5-12 by mouth ity of :lidocaine 00:00: as needed [place] 2 % viscous 00 for Oral Medi shanice 1:1:1 mucositis Branch (EPIGASTRI C PAIN). proMETHazin 2023-0 Yes [id number] 25mg Take 1 [facility] e 25 mg 5-12 tablet by ity of tablet 00:00: mouth [place] 00 every 6 Medical (six) Branch hours as needed for Nausea and Vomiting (N/V). sucralfate 2023-0 Yes [id number] 1g Take 1 U nivers 1 gram 5-12 tablet by ity of tablet 00:00: mouth [place] 00 before Medical meals and Branch at bedtime. esomeprazol 3-0 Yes [id number] 40mg Take 1 [facility] e (NEXIUM) 5-12 capsule by ity of 40 mg 00:00: mouth [place] capsule 00 daily with Medica l breakfast. Branch maalox:diph 3-0 Yes [id number] 15mL Take 15 mL [facility] enhydrAMINE 5-12 by mouth ity of :lidocaine 00:00: as needed [place] 2 % viscous 00 for Oral Medi shanice 1:1:1 mucositis Branch (EPIGASTRI C PAIN). proMETHazin 3-0 Yes [id number] 25mg Take 1 [facility] e 25 mg 5-12 tablet by ity of tablet 00:00: mouth [place] 00 every 6 Medical (six) Branch hours as needed for Nausea and Vomiting (N/V). sucralfate 2022-0 Yes [id number] 1g Take 1 U nivers 1 gram 5-12 tablet by ity of tablet 00:00: mouth [place] 00 before Medical meals and Branch at bedtime. esomeprazol 3-0 Yes [id number] 40mg Take 1 [facility] e (NEXIUM) 5-12 capsule by ity of 40 mg 00:00: mouth [place] capsule 00 daily with Medica l breakfast. Branch maalox:diph 3-0 Yes [id number] 15mL Take 15 mL [facility] enhydrAMINE 5-12 by mouth ity of :lidocaine 00:00: as needed [place] 2 % viscous 00 for Oral Medi shanice 1:1:1 mucositis Branch (EPIGASTRI C PAIN). proMETHazin 3-0 Yes [id number] 25mg Take 1 [facility] e 25 mg 5-12 tablet by ity of tablet 00:00: mouth [place] 00 every 6 Medical (six) Branch hours as needed for Nausea and Vomiting (N/V). sucralfate 2023-0 Yes [id number] 1g Take 1 U nivers 1 gram 5-12 tablet by ity of tablet 00:00: mouth [place] 00 before Medical meals and Branch at bedtime. esomeprazol 2023-0 Yes [id number] 40mg Take 1 [facility] e (NEXIUM) 5-12 capsule by ity of 40 mg 00:00: mouth [place] capsule 00 daily with Medica l breakfast. Branch maalox:diph 3-0 Yes [id number] 15mL Take 15 mL [facility] enhydrAMINE 5-12 by mouth ity of :lidocaine 00:00: as needed [place] 2 % viscous 00 for Oral Medi shanice 1:1:1 mucositis Branch (EPIGASTRI C PAIN). proMETHazin 3-0 Yes [id number] 25mg Take 1 [facility] e 25 mg 5-12 tablet by ity of tablet 00:00: mouth [place] 00 every 6 Medical (six) Branch hours as needed for Nausea and Vomiting (N/V). sucralfate 3-0 Yes [id number] 1g Take 1 U nivers 1 gram 5-12 tablet by ity of tablet 00:00: mouth [place] 00 before Medical meals and Branch at bedtime. esomeprazol 2022-0 Yes [id number] 40mg Take 1 [facility] e (NEXIUM) 5-12 capsule by ity of 40 mg 00:00: mouth [place] capsule 00 daily with Medica l breakfast. Branch maalox:diph 2022-0 Yes [id number] 15mL Take 15 mL [facility] enhydrAMINE 5-12 by mouth ity of :lidocaine 00:00: as needed [place] 2 % viscous 00 for Oral Medi shanice 1:1:1 mucositis Branch (EPIGASTRI C PAIN). proMETHazin 3-0 Yes [id number] 25mg Take 1 [facility] e 25 mg 5-12 tablet by ity of tablet 00:00: mouth [place] 00 every 6 Medical (six) Branch hours as needed for Nausea and Vomiting (N/V). sucralfate 2023-0 Yes [id number] 1g Take 1 U nivers 1 gram 5-12 tablet by ity of tablet 00:00: mouth [place] 00 before Medical meals and Branch at bedtime. esomeprazol 2023-0 Yes [id number] 40mg Take 1 [facility] e (NEXIUM) 5-12 capsule by ity of 40 mg 00:00: mouth [place] capsule 00 daily with Medica l breakfast. Branch maalox:diph 3-0 Yes [id number] 15mL Take 15 mL [facility] enhydrAMINE 5-12 by mouth ity of :lidocaine 00:00: as needed [place] 2 % viscous 00 for Oral Medi shanice 1:1:1 mucositis Branch (EPIGASTRI C PAIN). proMETHazin 3-0 Yes [id number] 25mg Take 1 [facility] e 25 mg 5-12 tablet by ity of tablet 00:00: mouth [place] 00 every 6 Medical (six) Branch hours as needed for Nausea and Vomiting (N/V). sucralfate 3-0 Yes [id number] 1g Take 1 U nivers 1 gram 5-12 tablet by ity of tablet 00:00: mouth [place] 00 before Medical meals and Branch at bedtime. esomeprazol 3-0 Yes [id number] 40mg Take 1 [facility] e (NEXIUM) 5-12 capsule by ity of 40 mg 00:00: mouth [place] capsule 00 daily with Medica l breakfast. Branch maalox:diph 3-0 Yes [id number] 15mL Take 15 mL [facility] enhydrAMINE 5-12 by mouth ity of :lidocaine 00:00: as needed [place] 2 % viscous 00 for Oral Medi shanice 1:1:1 mucositis Branch (EPIGASTRI C PAIN). proMETHazin 2022-0 Yes [id number] 25mg Take 1 [facility] e 25 mg 5-12 tablet by ity of tablet 00:00: mouth [place] 00 every 6 Medical (six) Branch hours as needed for Nausea and Vomiting (N/V). sucralfate 3-0 Yes [id number] 1g Take 1 U nivers 1 gram 5-12 tablet by ity of tablet 00:00: mouth [place] 00 before Medical meals and Branch at bedtime. esomeprazol 3-0 Yes [id number] 40mg Take 1 [facility] e (NEXIUM) 5-12 capsule by ity of 40 mg 00:00: mouth [place] capsule 00 daily with Medica l breakfast. Branch maalox:diph 3-0 Yes [id number] 15mL Take 15 mL [facility] enhydrAMINE 5-12 by mouth ity of :lidocaine 00:00: as needed [place] 2 % viscous 00 for Oral Medi shanice 1:1:1 mucositis Branch (EPIGASTRI C PAIN). proMETHazin 3-0 Yes [id number] 25mg Take 1 [facility] e 25 mg 5-12 tablet by ity of tablet 00:00: mouth [place] 00 every 6 Medical (six) Branch hours as needed for Nausea and Vomiting (N/V). sucralfate 2023-0 Yes [id number] 1g Take 1 U nivers 1 gram 5-12 tablet by ity of tablet 00:00: mouth [place] 00 before Medical meals and Branch at bedtime. esomeprazol 2023-0 Yes [id number] 40mg Take 1 [facility] e (NEXIUM) 5-12 capsule by ity of 40 mg 00:00: mouth [place] capsule 00 daily with Medica l breakfast. Branch maalox:diph 2023-0 Yes [id number] 15mL Take 15 mL [facility] enhydrAMINE 5-12 by mouth ity of :lidocaine 00:00: as needed [place] 2 % viscous 00 for Oral Medi shanice 1:1:1 mucositis Branch (EPIGASTRI C PAIN). proMETHazin 3-0 Yes [id number] 25mg Take 1 [facility] e 25 mg 5-12 tablet by ity of tablet 00:00: mouth [place] 00 every 6 Medical (six) Branch hours as needed for Nausea and Vomiting (N/V). sucralfate 3-0 Yes [id number] 1g Take 1 U nivers 1 gram 5-12 tablet by ity of tablet 00:00: mouth [place] 00 before Medical meals and Branch at bedtime. esomeprazol 3-0 Yes [id number] 40mg Take 1 [facility] e (NEXIUM) 5-12 capsule by ity of 40 mg 00:00: mouth [place] capsule 00 daily with Medica l breakfast. Branch maalox:diph 3-0 Yes [id number] 15mL Take 15 mL [facility] enhydrAMINE 5-12 by mouth ity of :lidocaine 00:00: as needed [place] 2 % viscous 00 for Oral Medi shanice 1:1:1 mucositis Branch (EPIGASTRI C PAIN). proMETHazin 2023-0 Yes [id number] 25mg Take 1 [facility] e 25 mg 5-12 tablet by ity of tablet 00:00: mouth [place] 00 every 6 Medical (six) Branch hours as needed for Nausea and Vomiting (N/V). sucralfate 2023-0 Yes [id number] 1g Take 1 U nivers 1 gram 5-12 tablet by ity of tablet 00:00: mouth [place] 00 before Medical meals and Branch at bedtime. esomeprazol 2023-0 Yes [id number] 40mg Take 1 [facility] e (NEXIUM) 5-12 capsule by ity of 40 mg 00:00: mouth [place] capsule 00 daily with Medica l breakfast. Branch maalox:diph 3-0 Yes [id number] 15mL Take 15 mL [facility] enhydrAMINE 5-12 by mouth ity of :lidocaine 00:00: as needed [place] 2 % viscous 00 for Oral Medi shanice 1:1:1 mucositis Branch (EPIGASTRI C PAIN). proMETHazin 3-0 Yes [id number] 25mg Take 1 [facility] e 25 mg 5-12 tablet by ity of tablet 00:00: mouth [place] 00 every 6 Medical (six) Branch hours as needed for Nausea and Vomiting (N/V). sucralfate 2023-0 Yes [id number] 1g Take 1 U nivers 1 gram 5-12 tablet by ity of tablet 00:00: mouth [place] 00 before Medical meals and Branch at bedtime. esomeprazol 3-0 Yes [id number] 40mg Take 1 [facility] e (NEXIUM) 5-12 capsule by ity of 40 mg 00:00: mouth [place] capsule 00 daily with Medica l breakfast. Branch maalox:diph 3-0 Yes [id number] 15mL Take 15 mL [facility] enhydrAMINE 5-12 by mouth ity of :lidocaine 00:00: as needed [place] 2 % viscous 00 for Oral Medi shanice 1:1:1 mucositis Branch (EPIGASTRI C PAIN). proMETHazin 2023-0 Yes [id number] 25mg Take 1 [facility] e 25 mg 5-12 tablet by ity of tablet 00:00: mouth [place] 00 every 6 Medical (six) Branch hours as needed for Nausea and Vomiting (N/V). sucralfate 2023-0 Yes [id number] 1g Take 1 U nivers 1 gram 5-12 tablet by ity of tablet 00:00: mouth [place] 00 before Medical meals and Branch at bedtime. esomeprazol 2023-0 Yes [id number] 40mg Take 1 [facility] e (NEXIUM) 5-12 capsule by ity of 40 mg 00:00: mouth [place] capsule 00 daily with Medica l breakfast. Branch ondansetron 2022- No [id number] 4mg Take 1 [facility] (ZOFRAN) 4 01-15 tablet by ity of mg tablet 00:00: 00:00 mouth [place] 00 :00 every 8 Medical (eight) Branch hours as needed for Nausea and Vomiting (N/V). proMETHazin 2022- No [id number] 25mg Take 1 [facility] e 25 mg 01-15 tablet by ity of tablet 00:00: 00:00 mouth [place] 00 :00 every 6 Medical (six) Branch hours as needed for Nausea and Vomiting (N/V). sucralfate 2022- No [id number] 1g Take 1 [facility] 1 gram 01-15 tablet by ity of tablet 00:00: 00:00 mouth [place] 00 :00 before Medical meals and Branch at bedtime. esomeprazol 2022- No [id number] 40mg Take 1 [facility] e (NEXIUM) 01-15 [...] 0145, 15 mL Routine iopamidol 2022- No [id number] 70mL 70 mL, Univers (ISOVUE 12-30 Intravenou ity o f 370-500 mL) 17:30: 17:25 s, ONCE, 1 [place] injection 00 :00 dose, On Medica l 70 mL Wed Branch 12/30/22 at 1230, Routine nitroglycer 2022- No [id number] .8mg 0.8 mg, Univers in 12-30 Sublingual ity of (NITROSTAT) 17:15: 17:15 , ONCE, 1 [place] sublingual 00 :00 dose, On Medic al tablet 0.8 Wed Branch mg 12/30/22 at 1215, Routine metoprolol 2022- No [id number] 100mg 100 mg, Univers tartrate 12-30 Oral, ity of (LOPRESSOR) 16:15: 16:41 ONCE, 1 [place] tablet 100 00 :00 dose, On Medic al mg [facility] Branch 12/30/22 at 1141, Routine valACYclovi Yes [id number] 1g Take 1 Univers r 1 gram 4-21 tablet by ity of tablet 00:00: mouth in [place] [address] the [facility] morning [place] and 1 tablet at noon and 1 tablet in the evening. valACYclovi Yes [id number] 1g Take 1 Univers r 1 gram 4-21 tablet by ity of tablet 00:00: mouth in [place] [address] the [facility] and 1 tablet at noon and 1 tablet in the evening. valACYclovi Yes [id number] 1g Take 1 Univers r 1 gram 4-21 tablet by ity of tablet 00:00: mouth in [place] [address] the [facility] and 1 tablet at noon and 1 tablet in the evening. valACYclovi 0 Yes [id number] 1g Take 1 Univers r 1 gram 4-21 tablet by ity of tablet 00:00: mouth in [place] [address] the [facility] and 1 tablet at noon and 1 tablet in the evening. valACYclovi 0 Yes [id number] 1g Take 1 Univers r 1 gram 4-21 tablet by ity of tablet 00:00: mouth in [place] [address] the [facility] and 1 tablet at noon and 1 tablet in the evening. valACYclovi 0 Yes [id number] 1g Take 1 Univers r 1 gram 4-21 tablet by ity of tablet 00:00: mouth in [place] [address] the [facility] morning [place] and 1 tablet at noon and 1 tablet in the evening. valACYclovi 0 Yes [id number] 1g Take 1 [facility] r 1 gram 4-21 tablet by ity of tablet 00:00: mouth in [address] and 1 tablet at noon and 1 tablet in the evening. valACYclovi 0 Yes [id number] 1g Take 1 [facility] r 1 gram 4-21 tablet by ity of tablet 00:00: mouth in [place] 00 the Medical morning Branch and 1 tablet at noon and 1 tablet in the evening. valACYclovi 2022-0 Yes [id number] 1g Take 1 [facility] r 1 gram 4-21 tablet by ity of tablet 00:00: mouth in [place] 00 the Medical morning Branch and 1 tablet at noon and 1 tablet in the evening. valACYclovi 2022-0 Yes [id number] 1g Take 1 [facility] r 1 gram 4-21 tablet by ity of tablet 00:00: mouth in [place] 00 the Medical morning Branch and 1 tablet at noon and 1 tablet in the evening. valACYclovi 0 Yes [id number] 1g Take 1 Univers r 1 gram 4-21 tablet by ity of tablet 00:00: mouth in [place] 00 the Medical morning Branch and 1 tablet at noon and 1 tablet in the evening. valACYclovi 2022-0 Yes [id number] 1g Take 1 Univers r 1 gram 4-21 tablet by ity of tablet 00:00: mouth in [place] 00 the Medical morning Branch and 1 tablet at noon and 1 tablet in the evening. valACYclovi 0 Yes [id number] 1g Take 1 [facility] r 1 gram 4-21 tablet by ity of tablet 00:00: mouth in [place] 00 the Medical morning Branch and 1 tablet at noon and 1 tablet in the evening. valACYclovi Yes [id number] 1g Take 1 Univers r 1 gram 4-21 tablet by ity of tablet 00:00: mouth in [place] 00 the Medical morning Branch and 1 tablet at noon and 1 tablet in the evening. valACYclovi 0 2022- No [id number] 1g Take 1 Univers r 1 gram 4-21 05-12 tablet by ity o f tablet 00:00: 00:00 mouth in [place] 00 :00 the Medical morning Branch and 1 tablet at noon and 1 tablet in the evening. valACYclovi 0 2022- No [id number] 1g Take 1 Univers r 1 gram 4-21 04-29 tablet by ity o f tablet 00:00: 04:59 mouth in [place] 00 :00 the Medical morning Branch and 1 tablet at noon and 1 tablet in the evening. Do all this for 7 days. valACYclovi 0 2022- No [id number] 1g Take 1 Univers r 1 gram 4-21 04-21 tablet by ity o f tablet 00:00: 00:00 mouth in [place] 00 :00 the Medical morning Branch and 1 tablet at noon and 1 tablet in the evening. Do all this for 7 days. levETIRAcet 0 Yes TWICE Unive rs am 500 mg 4-18 DAILY. ity of tablet 09:12: [address] gabapentin 2022-0 Yes gabapentin U nivers 300 mg 4-18 300 mg ity of capsule 09:12: capsule [address] famotidine 2022-0 Yes famotidine U nivers 20 mg 4-18 20 mg ity of tablet 09:12: tablet [address] clonazePAM 2022-0 Yes clonazepam U nivers 0.5 mg 4-18 0.5 mg ity of tablet 09:12: tablet [place] [address] TAKE 1 Medical TABLET BY Branch MOUTH EVERY DAY AT BEDTIME NEEDED FOR SEVERE ANXIETY/PA STACEY ATTACK buPROPion 0 Yes 300mg Take 1 Unive rs XL 300 mg 4-18 tablet by ity o f 24 hr 09:12: mouth. [address] buprenorphi Yes [place] [facility] vers ne [...] mg 4-18 DAILY. ity of tablet 09:12: [address] gabapentin 0 Yes gabapentin U nivers 300 mg 4-18 300 mg ity of capsule 09:12: capsule [address] famotidine 2022-0 Yes famotidine U nivers 20 mg 4-18 20 mg ity of tablet 09:12: tablet [address] clonazePAM 2023-0 Yes clonazepam U nivers 0.5 mg 4-18 0.5 mg ity of tablet 09:12: tablet [place] 14 TAKE 1 Medical TABLET BY Branch MOUTH EVERY DAY AT BEDTIME NEEDED FOR SEVERE ANXIETY/PA STACEY ATTACK buPROPion 0 Yes 300mg Take 1 Unive rs XL 300 mg 4-18 tablet by ity o f 24 hr 09:12: mouth. [place] tablet 14 [facility] buprenorphi 0 Yes [place] [facility] vers ne [...] mg 4-18 DAILY. ity of tablet 09:12: [address] gabapentin Yes gabapentin U nivers 300 mg 4-18 300 mg ity of capsule 09:12: capsule [address] famotidine 2022-0 Yes famotidine U nivers 20 mg 4-18 20 mg ity of tablet 09:12: tablet [address] clonazePAM 2022-0 Yes clonazepam U nivers 0.5 mg 4-18 0.5 mg ity of tablet 09:12: tablet [place] 14 TAKE 1 Medical TABLET BY Branch MOUTH EVERY DAY AT BEDTIME NEEDED FOR SEVERE ANXIETY/PA STACEY ATTACK buPROPion 2022-0 Yes 300mg Take 1 Unive rs XL 300 mg 4-18 tablet by ity o f 24 hr 09:12: mouth. [place] tablet 14 [facility] buprenorphi 0 Yes [place] [facility] vers ne [...] mg 4-18 DAILY. ity of tablet 09:12: [address] gabapentin Yes gabapentin U nivers 300 mg 4-18 300 mg ity of capsule 09:12: capsule [address] famotidine Yes famotidine U nivers 20 mg 4-18 20 mg ity of tablet 09:12: tablet [address] clonazePAM Yes clonazepam U nivers 0.5 mg 4-18 0.5 mg ity of tablet 09:12: tablet [place] [address] TAKE 1 Medical TABLET BY Branch MOUTH EVERY DAY AT BEDTIME NEEDED FOR SEVERE ANXIETY/PA STACEY ATTACK buPROPion Yes 300mg Take 1 Unive rs XL 300 mg 4-18 tablet by ity o f 24 hr 09:12: mouth. [address] buprenorphi Yes [place] [facility] vers ne [...] mg 4-18 DAILY. ity of tablet 09:12: [address] gabapentin 2022-0 Yes gabapentin U nivers 300 mg 4-18 300 mg ity of capsule 09:12: capsule [address] famotidine 2022-0 Yes famotidine U nivers 20 mg 4-18 20 mg ity of tablet 09:12: tablet [address] clonazePAM 2022-0 Yes clonazepam U nivers 0.5 mg 4-18 0.5 mg ity of tablet 09:12: tablet [place] [address] TAKE 1 Medical TABLET BY Branch MOUTH EVERY DAY AT BEDTIME NEEDED FOR SEVERE ANXIETY/PA STACEY ATTACK buPROPion 0 Yes 300mg Take 1 Unive rs XL 300 mg 4-18 tablet by ity o f 24 hr 09:12: mouth. [address] buprenorphi Yes [place] [facility] vers ne [...] mg 4-18 DAILY. ity of tablet 09:12: [address] gabapentin Yes gabapentin U nivers 300 mg 4-18 300 mg ity of capsule 09:12: capsule [address] famotidine 2022-0 Yes famotidine U nivers 20 mg 4-18 20 mg ity of tablet 09:12: tablet [address] clonazePAM 2022-0 Yes clonazepam U nivers 0.5 mg 4-18 0.5 mg ity of tablet 09:12: tablet [place] [address] TAKE 1 Medical TABLET BY Branch MOUTH EVERY DAY AT BEDTIME NEEDED FOR SEVERE ANXIETY/PA STACEY ATTACK buPROPion 2023-0 Yes 300mg Take 1 Unive rs XL 300 mg 4-18 tablet by ity o f 24 hr 09:12: mouth. [place] tablet 14 [facility] buprenorphi Yes [place] [facility] vers ne HCL [...] mg 4-18 DAILY. ity of tablet 09:12: [address] gabapentin Yes gabapentin U nivers 300 mg 4-18 300 mg ity of capsule 09:12: capsule [address] famotidine Yes famotidine U nivers 20 mg 4-18 20 mg ity of tablet 09:12: tablet [address] clonazePAM Yes clonazepam U nivers 0.5 mg 4-18 0.5 mg ity of tablet 09:12: tablet [place] [address] TAKE 1 Medical TABLET BY Branch MOUTH EVERY DAY AT BEDTIME NEEDED FOR SEVERE ANXIETY/PA STACEY ATTACK buPROPion Yes 300mg Take 1 Unive rs XL 300 mg 4-18 tablet by ity o f 24 hr 09:12: mouth. [place] tablet 14 [facility] buprenorphi Yes [place] [facility] vers ne HCL [...] mg 4-18 DAILY. ity of tablet 09:12: [address] gabapentin Yes gabapentin U nivers 300 mg 4-18 300 mg ity of capsule 09:12: capsule [address] famotidine Yes famotidine U nivers 20 mg 4-18 20 mg ity of tablet 09:12: tablet [address] clonazePAM Yes clonazepam U nivers 0.5 mg 4-18 0.5 mg ity of tablet 09:12: tablet [place] [address] TAKE 1 Medical TABLET BY Branch MOUTH EVERY DAY AT BEDTIME NEEDED FOR SEVERE ANXIETY/PA STACEY ATTACK buPROPion Yes 300mg Take 1 Unive rs XL 300 mg 4-18 tablet by ity o f 24 hr 09:12: mouth. [address] buprenorphi Yes [place] [facility] vers ne [...] mg 4-18 DAILY. ity of tablet 09:12: [address] gabapentin Yes gabapentin U nivers 300 mg 4-18 300 mg ity of capsule 09:12: capsule [address] famotidine Yes famotidine U nivers 20 mg 4-18 20 mg ity of tablet 09:12: tablet [address] clonazePAM 2022-0 Yes clonazepam U nivers 0.5 mg 4-18 0.5 mg ity of tablet 09:12: tablet [place] 14 TAKE 1 Medical TABLET BY Branch MOUTH EVERY DAY AT BEDTIME NEEDED FOR SEVERE ANXIETY/PA STACEY ATTACK buPROPion 0 Yes 300mg Take 1 Unive rs XL 300 mg 4-18 tablet by ity o f 24 hr 09:12: mouth. [place] tablet 14 [facility] buprenorphi Yes [place] [facility] vers ne HCL [...] [place] [facility] levETIRAcet Yes TWICE Unive rs am 500 mg 4-18 DAILY. ity of tablet 09:12: [address] gabapentin Yes gabapentin U nivers 300 mg 4-18 300 mg ity of capsule 09:12: capsule [address] famotidine 2022-0 Yes famotidine U nivers 20 mg 4-18 20 mg ity of tablet 09:12: tablet [address] clonazePAM 2022-0 Yes clonazepam U nivers 0.5 mg 4-18 0.5 mg ity of tablet 09:12: tablet [place] [address] TAKE 1 Medical TABLET BY Branch MOUTH EVERY DAY AT BEDTIME NEEDED FOR SEVERE ANXIETY/PA STACEY ATTACK buPROPion 2022-0 Yes 300mg Take 1 Unive rs XL 300 mg 4-18 tablet by ity o f 24 hr 09:12: mouth. [place] tablet 14 [facility] buprenorphi Yes [place] [facility] vers ne HCL [...] mg 4-18 DAILY. ity of tablet 09:12: [address] gabapentin Yes gabapentin U nivers 300 mg 4-18 300 mg ity of capsule 09:12: capsule [address] famotidine 0 Yes famotidine U nivers 20 mg 4-18 20 mg ity of tablet 09:12: tablet [address] clonazePAM 0 Yes clonazepam U nivers 0.5 mg 4-18 0.5 mg ity of tablet 09:12: tablet [place] [address] TAKE 1 Medical TABLET BY Branch MOUTH EVERY DAY AT BEDTIME NEEDED FOR SEVERE ANXIETY/PA STACEY ATTACK buPROPion 0 Yes 300mg Take 1 Unive rs XL 300 mg 4-18 tablet by ity o f 24 hr 09:12: mouth. [place] tablet [address] [place] [address] buprenorphi Yes [place] [facility] vers ne HCL [...] mg 4-18 DAILY. ity of tablet 09:12: [address] gabapentin 0 Yes gabapentin U nivers 300 mg 4-18 300 mg ity of capsule 09:12: capsule [address] famotidine 2022-0 Yes famotidine U nivers 20 mg 4-18 20 mg ity of tablet 09:12: tablet [address] clonazePAM 2022-0 Yes clonazepam U nivers 0.5 mg 4-18 0.5 mg ity of tablet 09:12: tablet [place] 14 TAKE 1 Medical TABLET BY Branch MOUTH EVERY DAY AT BEDTIME NEEDED FOR SEVERE ANXIETY/PA STACEY ATTACK buPROPion 0 Yes 300mg Take 1 Unive rs XL 300 mg 4-18 tablet by ity o f 24 hr 09:12: mouth. [facility] [place] [facility] 14 [facility] buprenorphi Yes [place] [facility] vers ne HCL [...] mg 4-18 DAILY. ity of tablet 09:12: [address] gabapentin 2022-0 Yes gabapentin U nivers 300 mg 4-18 300 mg ity of capsule 09:12: capsule [address] famotidine 2022-0 Yes famotidine U nivers 20 mg 4-18 20 mg ity of tablet 09:12: tablet [address] clonazePAM 2022-0 Yes clonazepam U nivers [...] mg 4-18 DAILY. ity of tablet 09:12: [address] gabapentin Yes gabapentin U nivers 300 mg 4-18 300 mg ity of capsule 09:12: capsule [address] famotidine Yes famotidine U nivers 20 mg 4-18 20 mg ity of tablet 09:12: tablet [address] clonazePAM Yes clonazepam U nivers 0.5 mg 4-18 0.5 mg ity of tablet 09:12: tablet [place] [address] TAKE 1 Medical TABLET BY Branch MOUTH [...] mg 4-18 DAILY. ity of tablet 09:12: [address] gabapentin Yes gabapentin U nivers 300 mg 4-18 300 mg ity of capsule 09:12: capsule [address] famotidine 2022-0 Yes famotidine U nivers 20 mg 4-18 20 mg ity of tablet 09:12: tablet [address] clonazePAM 2022-0 Yes clonazepam U nivers 0.5 mg 4-18 0.5 mg ity of tablet 09:12: tablet [place] 14 TAKE 1 Medical TABLET BY Branch [...] mg 4-18 DAILY. ity of tablet 09:12: [address] gabapentin Yes gabapentin U nivers 300 mg 4-18 300 mg ity of capsule 09:12: capsule [address] famotidine 2022-0 Yes famotidine U nivers 20 mg 4-18 20 mg ity of tablet 09:12: tablet [address] clonazePAM 2022-0 Yes clonazepam U nivers 0.5 mg 4-18 0.5 mg ity of tablet 09:12: tablet [place] [address] TAKE 1 Medical TABLET BY Branch MOUTH [...] mg 4-18 DAILY. ity of tablet 09:12: [address] gabapentin Yes gabapentin U nivers 300 mg 4-18 300 mg ity of capsule 09:12: capsule [address] famotidine Yes famotidine U nivers 20 mg 4-18 20 mg ity of tablet 09:12: tablet [address] clonazePAM Yes clonazepam U nivers 0.5 mg 4-18 0.5 mg ity of tablet 09:12: tablet [place] [address] TAKE 1 Medical TABLET BY Branch MOUTH [...] mg 4-18 DAILY. ity of tablet 09:12: [address] gabapentin 0 Yes gabapentin U nivers 300 mg 4-18 300 mg ity of capsule 09:12: capsule [address] famotidine 2022-0 Yes famotidine U nivers 20 mg 4-18 20 mg ity of tablet 09:12: tablet [address] clonazePAM 2022-0 Yes clonazepam U nivers 0.5 mg 4-18 0.5 mg ity of tablet 09:12: tablet [place] 14 TAKE 1 Medical TABLET BY Branch [...] mg 4-18 DAILY. ity of tablet 09:12: [address] gabapentin Yes gabapentin U nivers 300 mg 4-18 300 mg ity of capsule 09:12: capsule [address] famotidine 2022-0 Yes famotidine U nivers 20 mg 4-18 20 mg ity of tablet 09:12: tablet [address] clonazePAM 2022-0 Yes clonazepam U nivers 0.5 mg 4-18 0.5 mg ity of tablet 09:12: tablet [place] 14 TAKE 1 Medical TABLET BY Branch MOUTH EVERY DAY AT BEDTIME NEEDED FOR SEVERE ANXIETY/PA STACEY ATTACK buprenorphi 0 Yes [place] Uni vers ne HCL 4-18 750 mcg ity of (BELBUCA) 09:12: buccal [place] [address] Medica l Film 1 FILM BY Branch BUCCAL ROUTE TWICE A DAY buprenorphi 2023-0 Yes [place] 10 Univers ne 4-18 mcg/hour [...] mg 4-18 DAILY. ity of tablet 09:12: [address] gabapentin Yes gabapentin U nivers 300 mg 4-18 300 mg ity of capsule 09:12: capsule [address] famotidine Yes famotidine U nivers 20 mg 4-18 20 mg ity of tablet 09:12: tablet [address] clonazePAM Yes clonazepam U nivers 0.5 mg 4-18 0.5 mg ity of tablet 09:12: tablet [place] [address] TAKE 1 Medical TABLET BY Branch MOUTH [...] mg 4-18 DAILY. ity of tablet 09:12: [address] gabapentin Yes gabapentin U nivers 300 mg 4-18 300 mg ity of capsule 09:12: capsule [address] famotidine Yes famotidine U nivers 20 mg 4-18 20 mg ity of tablet 09:12: tablet [address] clonazePAM 2022-0 Yes clonazepam U nivers 0.5 mg 4-18 0.5 mg ity of tablet 09:12: tablet [place] 14 TAKE 1 Medical TABLET BY Branch [...] mg 4-18 DAILY. ity of tablet 09:12: [address] gabapentin Yes gabapentin U nivers 300 mg 4-18 300 mg ity of capsule 09:12: capsule [address] famotidine 2022-0 Yes famotidine U nivers 20 mg 4-18 20 mg ity of tablet 09:12: tablet [address] clonazePAM 2022-0 Yes clonazepam U nivers 0.5 mg 4-18 0.5 mg ity of tablet 09:12: tablet [place] [address] TAKE 1 Medical TABLET BY Branch MOUTH [...] mg 4-18 DAILY. ity of tablet 09:12: [address] gabapentin Yes gabapentin U nivers 300 mg 4-18 300 mg ity of capsule 09:12: capsule [address] famotidine Yes famotidine U nivers 20 mg 4-18 20 mg ity of tablet 09:12: tablet [address] clonazePAM Yes clonazepam U nivers 0.5 mg 4-18 0.5 mg ity of tablet 09:12: tablet [place] [address] TAKE 1 Medical TABLET BY Branch MOUTH [...] mg 4-18 DAILY. ity of tablet 09:12: [address] gabapentin Yes gabapentin U nivers 300 mg 4-18 300 mg ity of capsule 09:12: capsule [address] famotidine Yes famotidine U nivers 20 mg 4-18 20 mg ity of tablet 09:12: tablet [address] clonazePAM Yes clonazepam U nivers 0.5 mg 4-18 0.5 mg ity of tablet 09:12: tablet [place] 14 TAKE 1 Medical TABLET BY Branch [...] mg 4-18 DAILY. ity of tablet 09:12: [address] gabapentin Yes gabapentin U nivers 300 mg 4-18 300 mg ity of capsule 09:12: capsule [address] famotidine Yes famotidine U nivers 20 mg 4-18 20 mg ity of tablet 09:12: tablet [address] clonazePAM Yes clonazepam U nivers 0.5 mg 4-18 0.5 mg ity of tablet 09:12: tablet [place] [address] TAKE 1 Medical TABLET BY Branch MOUTH [...] 12/19/22 at 0530, Routine iopamidol 2022- No [id number] 99mL 99 mL, U nivers (ISOVUE 12-19 [...] 800 mg ity of tablet 10:43: tablet [address] Branch adalimumab 0 Yes 40mg inject 1 Uni vers (HUMIRA) 40 4-11 Syringe ity o f mg/0.8 mL 10:43: under the [place] as injection 17 skin. Medical Branch ibuprofen Yes ibuprofen Uni vers 800 mg 4-11 800 mg ity of tablet 10:43: tablet [address] adalimumab 2022-0 Yes 40mg inject 1 Uni vers (HUMIRA) 40 4-11 Syringe ity o f mg/0.8 mL 10:43: under the [place] as injection 17 skin. Medical Branch ibuprofen Yes ibuprofen Uni vers 800 mg 4-11 800 mg ity of tablet 10:43: tablet [place] [address] Medical Branch adalimumab 2022-0 Yes 40mg inject 1 Uni vers (HUMIRA) 40 4-11 Syringe ity o f mg/0.8 mL 10:43: under the [place] as injection 17 skin. Medical Branch ibuprofen Yes ibuprofen Uni vers 800 mg 4-11 800 mg ity of tablet 10:43: tablet [address] Branch adalimumab 2022-0 Yes 40mg inject [...] 800 mg ity of tablet 10:43: tablet [place] [address] Medical Branch adalimumab 2022-0 Yes 40mg inject [...] 800 mg ity of tablet 10:43: tablet [place] [address] Medical Branch adalimumab 3-0 Yes 40mg inject 1 Uni vers (HUMIRA) 40 4-11 Syringe ity o f mg/0.8 mL 10:43: under the [place] as injection 17 skin. Medical Branch ibuprofen 2022-0 Yes ibuprofen Uni vers 800 mg 4-11 800 mg ity of tablet 10:43: tablet [address] Branch adalimumab 3-0 Yes 40mg inject 1 Uni vers (HUMIRA) 40 4-11 Syringe ity o f mg/0.8 mL 10:43: under the [place] as injection 17 skin. Medical Branch ibuprofen 2022-0 Yes ibuprofen Uni vers 800 mg 4-11 800 mg ity of tablet 10:43: tablet [place] [address] Medical Branch adalimumab 2022-0 Yes 40mg inject 1 Uni vers (HUMIRA) 40 4-11 Syringe ity o f mg/0.8 mL 10:43: under the [place] as injection 17 skin. Medical Branch ibuprofen 2022-0 Yes ibuprofen Uni vers 800 mg 4-11 800 mg ity of tablet 10:43: tablet [address] Branch adalimumab 2022-0 Yes 40mg inject 1 Uni vers (HUMIRA) 40 4-11 Syringe ity o f mg/0.8 mL 10:43: under the [place] as injection 17 skin. Medical Branch ibuprofen 2022-0 Yes ibuprofen Uni vers 800 mg 4-11 800 mg ity of tablet 10:43: tablet [address] pregabalin 3-0 Yes 150mg Take 1 Univ ers 150 mg 3-30 capsule by ity of capsule 00:00: mouth in [place] [address] the Medical morning Branch and 1 capsule in the evening. meloxicam 3-0 Yes Univers 15 mg 3-30 ity of tablet 00:00: [place] 00 Medical Branch HYDROcodone 3-0 Yes 1{tbl} Take 1 Un travis -acetaminop 3-30 tablet by ity of hen 5-325 00:00: mouth 4 [place] mg tablet 00 (four) Medical times Branch daily. pregabalin 2023-0 Yes 150mg Take 1 Univ ers 150 mg 3-30 capsule by ity of capsule 00:00: mouth in [place] [address] the Medical morning Branch and 1 capsule in the evening. meloxicam 2023-0 Yes Univers 15 mg 3-30 ity of tablet 00:00: [place] 00 [facility] Branch HYDROcodone 2023-0 Yes 1{tbl} Take 1 Un travis -acetaminop 3-30 tablet by ity of hen 5-325 00:00: mouth 4 [place] mg tablet 00 ([facility]) Medical times Branch daily. pregabalin 2023-0 Yes 150mg Take 1 Univ ers 150 mg 3-30 capsule by ity of capsule 00:00: mouth in [place] the Medical morning Branch and 1 capsule in the evening. meloxicam 2023-0 Yes Univers 15 mg 3-30 ity of tablet 00:00: [place] 00 [facility] Branch HYDROcodone 2023-0 Yes 1{tbl} Take 1 Un travis -acetaminop 3-30 tablet by ity of hen 5-325 00:00: mouth 4 [place] mg tablet 00 (four) Medical times Branch daily. pregabalin 2023-0 Yes 150mg Take 1 Univ ers 150 mg 3-30 capsule by ity of capsule 00:00: mouth in [place] the Medical morning Branch and 1 capsule in the evening. meloxicam 2023-0 Yes Univers 15 mg 3-30 ity of tablet 00:00: [place] [facility] Branch HYDROcodone 2023-0 Yes 1{tbl} Take 1 Un travis -acetaminop 3-30 tablet by ity of hen 5-325 00:00: mouth 4 [place] mg tablet 00 ([facility]) Medical times [place] daily. pregabalin 2023-0 Yes 150mg Take 1 Univ ers 150 mg 3-30 capsule by ity of capsule 00:00: mouth in [place] the Medical morning Branch and 1 capsule in the evening. meloxicam 2023-0 Yes Univers 15 mg 3-30 ity of tablet 00:00: [place] 00 [facility] Branch HYDROcodone 2023-0 Yes 1{tbl} Take 1 Un travis -acetaminop 3-30 tablet by ity of hen 5-325 00:00: mouth 4 [place] mg tablet 00 ([facility]) Medical times Branch daily. pregabalin 2023-0 Yes 150mg Take 1 Univ ers 150 mg 3-30 capsule by ity of capsule 00:00: mouth in [place] the Medical morning Branch and 1 capsule in the evening. meloxicam 2023-0 Yes Univers 15 mg 3-30 ity of tablet 00:00: [place] 00 [facility] Branch HYDROcodone 2023-0 Yes 1{tbl} Take [...] by ity of capsule 00:00: mouth in [place] the Medical morning Branch and 1 capsule in the evening. meloxicam 2023-0 Yes Univers 15 mg 3-30 ity of tablet 00:00: [place] 00 Medical Branch HYDROcodone 2023-0 Yes 1{tbl} Take 1 Un travis -acetaminop 3-30 tablet by ity of hen 5-325 00:00: mouth 4 [place] mg tablet 00 (four) Medical times [place] daily. pregabalin 2023-0 Yes 150mg Take 1 Univ ers 150 mg 3-30 capsule by ity of capsule 00:00: mouth in [place] the Medical morning Branch and 1 capsule in the evening. meloxicam 2023-0 Yes Univers 15 mg 3-30 ity of tablet 00:00: [place] 00 Medical Branch HYDROcodone 2023-0 Yes 1{tbl} Take 1 Un travis -acetaminop 3-30 tablet by ity of hen 5-325 00:00: mouth 4 [place] mg tablet 00 (four) Medical times Branch daily. pregabalin 2023-0 Yes 150mg Take 1 Univ ers 150 mg 3-30 capsule by ity of capsule 00:00: mouth in [place] the Medical morning Branch and 1 capsule in the evening. meloxicam 2023-0 Yes Univers 15 mg 3-30 ity of tablet 00:00: [place] 00 Medical Branch HYDROcodone 2023-0 Yes 1{tbl} Take 1 Un travis -acetaminop 3-30 tablet by ity of hen 5-325 00:00: mouth 4 [place] mg tablet 00 (four) Medical times Branch daily. pregabalin 2023-0 Yes 150mg Take 1 Univ ers 150 mg 3-30 capsule by ity of capsule 00:00: mouth in [place] the Medical morning Branch and 1 capsule in the evening. meloxicam 2023-0 Yes Univers 15 mg 3-30 ity of tablet 00:00: [place] [facility] Branch HYDROcodone 2023-0 Yes 1{tbl} Take 1 Un travis -acetaminop 3-30 tablet by ity of hen 5-325 00:00: mouth 4 [place] mg tablet ([facility]) Medical times [place] daily. pregabalin 2023-0 Yes 150mg Take 1 Univ ers 150 mg 3-30 capsule by ity of capsule 00:00: mouth in [place] the [facility] morning Branch and 1 capsule in the evening. meloxicam 2023-0 Yes Univers 15 mg 3-30 ity of tablet 00:00: [place] [facility] Branch HYDROcodone 2023-0 Yes 1{tbl} Take 1 Un travis -acetaminop 3-30 tablet by ity of hen 5-325 00:00: mouth 4 [place] mg tablet ([facility]) [facility] times [place] daily. pregabalin 2023-0 Yes 150mg Take 1 Univ ers 150 mg 3-30 capsule by ity of capsule 00:00: mouth in [place] the [facility] morning Branch and 1 capsule in the evening. meloxicam 2023-0 Yes Univers 15 mg 3-30 ity of tablet 00:00: [place] [facility] Branch HYDROcodone 2023-0 Yes 1{tbl} Take 1 Un travis -acetaminop 3-30 tablet by ity of hen 5-325 00:00: mouth 4 [place] mg tablet ([facility]) Medical times [place] daily. pregabalin 2023-0 Yes 150mg Take 1 Univ ers 150 mg 3-30 capsule by ity of capsule 00:00: mouth in [place] the [facility] morning Branch and 1 capsule in the evening. meloxicam 2023-0 Yes Univers 15 mg 3-30 ity of tablet 00:00: [place] [facility] Branch HYDROcodone 2023-0 Yes 1{tbl} Take 1 Un travis -acetaminop 3-30 tablet by ity of hen 5-325 00:00: mouth 4 [place] mg tablet 00 ([facility]) Medical times Branch daily. pregabalin 2023-0 Yes 150mg Take 1 Univ ers 150 mg 3-30 capsule by ity of capsule 00:00: mouth in [place] the Medical morning Branch and 1 capsule in the evening. meloxicam 2023-0 Yes Univers 15 mg 3-30 ity of tablet 00:00: [place] [facility] Branch HYDROcodone 2023-0 Yes 1{tbl} Take 1 Un travis -acetaminop 3-30 tablet by ity of hen 5-325 00:00: mouth 4 [place] mg tablet ([facility]) Medical times [place] daily. pregabalin 2023-0 Yes 150mg Take 1 Univ ers 150 mg 3-30 capsule by ity of capsule 00:00: mouth in [place] the Medical morning Branch and 1 capsule in the evening. meloxicam 2023-0 Yes Univers 15 mg 3-30 ity of tablet 00:00: [place] [facility] Branch HYDROcodone 2023-0 Yes 1{tbl} Take 1 Un travis -acetaminop 3-30 tablet by ity of hen 5-325 00:00: mouth 4 [place] mg tablet ([facility]) [facility] times [place] daily. pregabalin 2023-0 Yes 150mg Take 1 Univ ers 150 mg 3-30 capsule by ity of capsule 00:00: mouth in [place] [address] the [facility] morning Branch and 1 capsule in the evening. meloxicam 2023-0 Yes Univers 15 mg 3-30 ity of tablet 00:00: [place] [facility] Branch HYDROcodone 2023-0 Yes 1{tbl} Take 1 Un travis -acetaminop 3-30 tablet by ity of hen 5-325 00:00: mouth 4 [place] mg tablet ([facility]) [facility] times [place] daily. pregabalin 2023-0 Yes 150mg Take 1 Univ ers 150 mg 3-30 capsule by ity of capsule 00:00: mouth in [place] the Medical morning Branch and 1 capsule in the evening. meloxicam 2023-0 Yes Univers 15 mg 3-30 ity of tablet 00:00: [place] [facility] Branch HYDROcodone 2023-0 Yes 1{tbl} Take 1 Un travis -acetaminop 3-30 tablet by ity of hen 5-325 00:00: mouth 4 [place] mg tablet 00 ([facility]) Medical times [place] daily. pregabalin 2023-0 Yes 150mg Take 1 Univ ers 150 mg 3-30 capsule by ity of capsule 00:00: mouth in [place] [address] the Medical morning Branch and 1 capsule in the evening. meloxicam 2023-0 Yes Univers 15 mg 3-30 ity of tablet 00:00: [place] [facility] Branch HYDROcodone 2023-0 Yes 1{tbl} Take 1 Un travis -acetaminop 3-30 tablet by ity of hen 5-325 00:00: mouth 4 [place] mg tablet 00 ([facility]) [facility] times [place] daily. pregabalin 2023-0 Yes 150mg Take 1 Univ ers 150 mg 3-30 capsule by ity of capsule 00:00: mouth in [place] [address] the [facility] morning Branch and 1 capsule in the evening. meloxicam 2023-0 Yes Univers 15 mg 3-30 ity of tablet 00:00: [address] Branch HYDROcodone 2023-0 Yes 1{tbl} Take 1 Un travis -acetaminop 3-30 tablet by ity of hen 5-325 00:00: mouth 4 [place] mg tablet 00 ([facility]) [facility] times [place] daily. pregabalin 2023-0 Yes 150mg Take 1 Univ ers 150 mg 3-30 capsule by ity of capsule 00:00: mouth in [place] [address] the [facility] morning Branch and 1 capsule in the evening. meloxicam 2023-0 Yes Univers 15 mg 3-30 ity of tablet 00:00: [address] Branch HYDROcodone 2023-0 Yes 1{tbl} Take 1 Un travis -acetaminop 3-30 tablet by ity of hen 5-325 00:00: mouth 4 [place] mg tablet ([facility]) [facility] times [place] daily. pregabalin 2023-0 Yes 150mg Take 1 Univ ers 150 mg 3-30 capsule by ity of capsule 00:00: mouth in [place] [address] the [facility] morning Branch and 1 capsule in the evening. meloxicam 2023-0 Yes Univers 15 mg 3-30 ity of tablet 00:00: [address] Branch HYDROcodone 2023-0 Yes 1{tbl} Take 1 Un travis -acetaminop 3-30 tablet by ity of hen 5-325 00:00: mouth 4 [place] mg tablet 00 ([facility]) [facility] times [place] daily. pregabalin 2023-0 Yes 150mg Take 1 Univ ers 150 mg 3-30 capsule by ity of capsule 00:00: mouth in [place] [address] the [facility] morning [place] and 1 capsule in the evening. meloxicam 2023-0 Yes Univers 15 mg 3-30 ity of tablet 00:00: [place] 00 [facility] Branch HYDROcodone 2023-0 Yes 1{tbl} Take 1 Un travis -acetaminop 3-30 tablet by ity of hen 5-325 00:00: mouth 4 [place] mg tablet 00 (four) Medical times [place] daily. pregabalin 2023-0 Yes 150mg Take 1 Univ ers 150 mg 3-30 capsule by ity of capsule 00:00: mouth in [place] 00 the Medical morning Branch and 1 capsule in the evening. meloxicam 2023-0 Yes Univers 15 mg 3-30 ity of tablet 00:00: [place] 00 [facility] Branch HYDROcodone 2023-0 Yes 1{tbl} Take 1 Un travis -acetaminop 3-30 tablet by ity of hen 5-325 00:00: mouth 4 [place] mg tablet 00 ([facility]) [facility] times [place] daily. pregabalin 2023-0 Yes 150mg Take 1 Univ ers 150 mg 3-30 capsule by ity of capsule 00:00: mouth in [place] the Medical morning Branch and 1 capsule in the evening. meloxicam 2023-0 Yes Univers 15 mg 3-30 ity of tablet 00:00: [place] 00 [facility] Branch HYDROcodone 2023-0 Yes 1{tbl} Take 1 Un travis -acetaminop 3-30 tablet by ity of hen 5-325 00:00: mouth 4 [place] mg tablet 00 ([facility]) [facility] times [place] daily. pregabalin 2023-0 Yes 150mg Take 1 Univ ers 150 mg 3-30 capsule by ity of capsule 00:00: mouth in [place] the Medical morning Branch and 1 capsule in the evening. meloxicam 2023-0 Yes Univers 15 mg 3-30 ity of tablet 00:00: [place] 00 [facility] Branch HYDROcodone 2023-0 Yes 1{tbl} Take 1 Un travis -acetaminop 3-30 tablet by ity of hen 5-325 00:00: mouth 4 [place] mg tablet 00 (four) Medical times [place] daily. pregabalin 2023-0 Yes 150mg Take 1 Univ ers 150 mg 3-30 capsule by ity of capsule 00:00: mouth in [place] the Medical morning Branch and 1 capsule in the evening. meloxicam 2023-0 Yes Univers 15 mg 3-30 ity of tablet 00:00: [place] [facility] Branch HYDROcodone 2023-0 Yes 1{tbl} Take 1 Un travis -acetaminop 3-30 tablet by ity of hen 5-325 00:00: mouth 4 [place] mg tablet ([facility]) [facility] times [place] daily. pregabalin 2023-0 Yes 150mg Take 1 Univ ers 150 mg 3-30 capsule by ity of capsule 00:00: mouth in [place] the Medical morning Branch and 1 capsule in the evening. meloxicam 2023-0 Yes Univers 15 mg 3-30 ity of tablet 00:00: [place] [facility] Branch HYDROcodone 2023-0 Yes 1{tbl} Take 1 Un travis -acetaminop 3-30 tablet by ity of hen 5-325 00:00: mouth 4 [place] mg tablet ([facility]) [facility] daily. pregabalin 2023-0 Yes 150mg Take 1 Univ ers 150 mg 3-30 capsule by ity of capsule 00:00: mouth in [place] the [facility] morning Branch and 1 capsule in the evening. meloxicam 2023-0 Yes Univers 15 mg 3-30 ity of tablet 00:00: [place] [facility] Branch HYDROcodone 2023-0 Yes 1{tbl} Take 1 Un travis -acetaminop 3-30 tablet by ity of hen 5-325 00:00: mouth 4 [place] mg tablet ([facility]) [facility] daily. pregabalin 2023-0 Yes 150mg Take 1 Univ ers 150 mg 3-30 capsule by ity of capsule 00:00: mouth in [place] the [facility] morning Branch and 1 capsule in the evening. meloxicam 2023-0 Yes Univers 15 mg 3-30 ity of tablet 00:00: [place] [facility] Branch HYDROcodone 2023-0 Yes 1{tbl} Take 1 Un travis -acetaminop 3-30 tablet by ity of hen 5-325 00:00: mouth 4 [place] mg tablet ([facility]) [facility] times [place] daily. pregabalin 2023-0 Yes 150mg Take 1 Univ ers 150 mg 3-30 capsule by ity of capsule 00:00: mouth in [place] the [facility] morning Branch and 1 capsule in the evening. meloxicam 2023-0 Yes Univers 15 mg 3-30 ity of tablet 00:00: [place] [facility] Branch HYDROcodone 2023-0 Yes 1{tbl} Take 1 Un travis -acetaminop 3-30 tablet by ity of hen 5-325 00:00: mouth 4 [place] mg tablet 00 (four) Medical times [place] daily. pregabalin 2023-0 Yes 150mg Take 1 Univ ers 150 mg 3-30 capsule by ity of capsule 00:00: mouth in [place] the Medical morning Branch and 1 capsule in the evening. meloxicam 2023-0 Yes Univers 15 mg 3-30 ity of tablet 00:00: [place] [facility] Branch HYDROcodone 2023-0 Yes 1{tbl} Take 1 Un travis -acetaminop 3-30 tablet by ity of hen 5-325 00:00: mouth 4 [place] mg tablet 00 ([facility]) Medical times [place] daily. pregabalin 2023-0 Yes 150mg Take 1 Univ ers 150 mg 3-30 capsule by ity of capsule 00:00: mouth in [place] the Medical morning Branch and 1 capsule in the evening. meloxicam 2023-0 Yes Univers 15 mg 3-30 ity of tablet 00:00: [place] [facility] Branch HYDROcodone 2023-0 Yes 1{tbl} Take 1 Un travis -acetaminop 3-30 tablet by ity of hen 5-325 00:00: mouth 4 [place] mg tablet ([facility]) [facility] times [place] daily. pregabalin 2023-0 Yes 150mg Take 1 Univ ers 150 mg 3-30 capsule by ity of capsule 00:00: mouth in [place] the Medical morning Branch and 1 capsule in the evening. meloxicam 2023-0 Yes Univers 15 mg 3-30 ity of tablet 00:00: [place] [facility] Branch HYDROcodone 2023-0 Yes 1{tbl} Take 1 Un travis -acetaminop 3-30 tablet by ity of hen 5-325 00:00: mouth 4 [place] mg tablet 00 ([facility]) Medical times [place] daily. pregabalin 2023-0 Yes 150mg Take 1 Univ ers 150 mg 3-30 capsule by ity of capsule 00:00: mouth in [place] the Medical morning Branch and 1 capsule in the evening. meloxicam 2023-0 Yes Univers 15 mg 3-30 ity of tablet 00:00: [place] [facility] Branch HYDROcodone 2023-0 Yes 1{tbl} Take 1 Un travis -acetaminop 3-30 tablet by ity of hen 5-325 00:00: mouth 4 [place] mg tablet 00 (four) Medical times [place] daily. pregabalin 2023-0 Yes 150mg Take 1 Univ ers 150 mg 3-30 capsule by ity of capsule 00:00: mouth in [place] [address] the Medical morning Branch and 1 capsule in the evening. meloxicam 2023-0 Yes Univers 15 mg 3-30 ity of tablet 00:00: [address] Branch HYDROcodone 2023-0 Yes 1{tbl} Take 1 Un travis -acetaminop 3-30 tablet by ity of hen 5-325 00:00: mouth 4 [place] mg tablet 00 (four) Medical times [place] daily. pregabalin 2023-0 Yes 150mg Take 1 Univ ers 150 mg 3-30 capsule by ity of capsule 00:00: mouth in [place] [address] the Medical morning Branch and 1 capsule in the evening. meloxicam 2023-0 Yes Univers 15 mg 3-30 ity of tablet 00:00: [address] Branch pregabalin 2023-0 Yes 150mg Take 1 Univ ers 150 mg 3-30 capsule by ity of capsule 00:00: mouth in [place] [address] the Medical morning Paguate and 1 capsule in the evening. meloxicam 2023-0 Yes [facility] 15 mg 3-30 ity of tablet 00:00: [address] Branch pregabalin 2023-0 Yes 150mg Take 1 [facility] ers 150 mg 3-30 capsule by ity of capsule 00:00: mouth in [place] [address] the Medical morning Branch and 1 capsule in the evening. meloxicam 2023-0 Yes [facility] 15 mg 3-30 ity of tablet 00:00: [address] Branch pregabalin 2023-0 Yes 150mg Take 1 [facility] ers 150 mg 3-30 capsule by ity of capsule 00:00: mouth in [place] [address] the Medical morning Branch and 1 capsule in the evening. meloxicam 2023-0 Yes [facility] 15 mg 3-30 ity of tablet 00:00: [address] Branch pregabalin 2023-0 Yes 150mg Take 1 [facility] ers 150 mg 3-30 capsule by ity of capsule 00:00: mouth in [place] [address] the Medical morning Pag[place] and 1 capsule in the evening. meloxicam 2023-0 Yes [facility] 15 mg 3-30 ity of tablet 00:00: [place] 00 Medical Branch pregabalin 2023-0 Yes 150mg Take 1 [facility] ers 150 mg 3-30 capsule by ity of capsule 00:00: mouth in [place] [address] the Medical morning Branch and 1 capsule in the evening. meloxicam 2023-0 Yes [facility] 15 mg 3-30 ity of tablet 00:00: [place] [address] Medical Branch pregabalin 2023-0 Yes 150mg Take 1 [facility] ers 150 mg 3-30 capsule by ity of capsule 00:00: mouth in [place] [address] the Medical morning Branch and 1 capsule in the evening. meloxicam 2023-0 Yes [facility] 15 mg 3-30 ity of tablet 00:00: [place] [address] Medical Branch pregabalin 2023-0 Yes 150mg Take 1 [facility] ers 150 mg 3-30 capsule by ity of capsule 00:00: mouth in [address] Medical morning [place] and 1 capsule in the evening. meloxicam 2023-0 Yes [facility] 15 mg 3-30 ity of tablet 00:00: [place] [address] Medical Branch pregabalin 2023-0 Yes 150mg Take 1 [facility] ers 150 mg 3-30 capsule by ity of capsule 00:00: mouth in [address] morning [place] and 1 capsule in the evening. meloxicam 2023-0 Yes [facility] 15 mg 3-30 ity of tablet 00:00: [place] [address] Medical Branch pregabalin 2023-0 Yes 150mg Take 1 [facility] ers 150 mg 3-30 capsule by ity of capsule 00:00: mouth in [place] [address] the [facility] morning Pag[place] and 1 capsule in the evening. meloxicam 2023-0 Yes [facility] 15 mg 3-30 ity of tablet 00:00: [place] [address] Medical Branch pregabalin 2023-0 Yes 150mg Take 1 [facility] ers 150 mg 3-30 capsule by ity of capsule 00:00: mouth in [address] morning [place] and 1 capsule in the evening. meloxicam 2023-0 Yes [facility] 15 mg 3-30 ity of tablet 00:00: [place] [address] Medical Branch pregabalin 2023-0 Yes 150mg Take 1 [facility] ers 150 mg 3-30 capsule by ity of capsule 00:00: mouth in [address] morning [place] and 1 capsule in the evening. meloxicam 2023-0 Yes [facility] 15 mg 3-30 ity of tablet 00:00: [place] [address] Medical Branch pregabalin 2023-0 Yes 150mg Take 1 [facility] ers 150 mg 3-30 capsule by ity of capsule 00:00: mouth in [place] the Medical morning Branch and 1 capsule in the evening. meloxicam 2023-0 Yes [facility] 15 mg 3-30 ity of tablet 00:00: [place] [facility] Branch HYDROcodone 2023-0 Yes 1{tbl} Take 1 Un tra[facility] -acetaminop 3-30 tablet by ity of hen 5-325 00:00: mouth 4 [place] mg tablet (chi [facility]) Medical times [place] daily. pregabalin 2023-0 Yes 150mg Take 1 [facility] ers 150 mg 3-30 capsule by ity of capsule 00:00: mouth in [place] the Medical morning Branch and 1 capsule in the evening. meloxicam 2023-0 Yes [facility] 15 mg 3-30 ity of tablet 00:00: [address] Branch HYDROcodone 2023-0 Yes 1{tbl} Take 1 Un tra[facility] -acetaminop 3-30 tablet by ity of hen 5-325 00:00: mouth 4 [place] mg tablet (chi [facility]) Medical times [place] daily. pregabalin 2023-0 Yes 150mg Take 1 [facility] ers 150 mg 3-30 capsule by ity of capsule 00:00: mouth in [place] the [facility] morning Branch and 1 capsule in the evening. meloxicam 2023-0 Yes [facility] 15 mg 3-30 ity of tablet 00:00: [place] [facility] Branch HYDROcodone 2023-0 Yes 1{tbl} Take 1 Un tra[facility] -acetaminop 3-30 tablet by ity of hen 5-325 00:00: mouth 4 [place] mg tablet (chi [facility]) Medical times [place] daily. pregabalin 2023-0 Yes 150mg Take 1 [facility] ers 150 mg 3-30 capsule by ity of capsule 00:00: mouth in [place] the Medical morning Branch and 1 capsule in the evening. meloxicam 2023-0 Yes [facility] 15 mg 3-30 ity of tablet 00:00: [place] [facility] Branch HYDROcodone 2023-0 Yes 1{tbl} Take 1 Un travis -acetaminop 3-30 tablet by ity of hen 5-325 00:00: mouth 4 [place] mg tablet 00 (chi [facility]) Medical times [place] daily. pregabalin 2023-0 Yes 150mg Take 1 [facility] ers 150 mg 3-30 capsule by ity of capsule 00:00: mouth in [place] 00 the Medical morning Branch and 1 capsule in the evening. meloxicam 2023-0 Yes [facility] 15 mg 3-30 ity of tablet 00:00: [place] 00 Medical Branch HYDROcodone 3-0 Yes 1{tbl} Take 1 Un travis -acetaminop 3-30 tablet by ity of hen 5-325 00:00: mouth 4 [place] mg tablet 00 (four) Medical times Branch daily. pregabalin 2023-0 Yes 150mg Take 1 [facility] ers 150 mg 3-30 capsule by ity of capsule 00:00: mouth in [place] 00 the Medical morning Branch and 1 capsule in the evening. meloxicam 3-0 Yes [facility] 15 mg 3-30 ity of tablet 00:00: [place] 00 Medical Branch HYDROcodone 3-0 Yes 1{tbl} [...] (four) Medical times Branch daily. HYDROcodone 3-0 3- No 1{tbl} Take 1 U nivers [...] TABLET BY ity of tablet 00:00: MOUTH [place] 00 THREE Medical TIMES A Branch DAY [...] 3-15 TABLET BY ity of tablet 00:00: [facility] EVERY DAY Medical AT BEDTIME Branch FOR 30 DAYS cyclobenzap 2023-0 Yes TAKE 1 Univ ers rine 10 mg 3-15 TABLET BY ity of tablet 00:00: MOUTH THREE Medical TIMES A Branch DAY NEEDED FOR 30 DAYS amitriptyli 2023-0 Yes TAKE 1 Univ ers ne 50 mg 3-15 TABLET BY ity of tablet 00:00: [facility] EVERY DAY Medical AT BEDTIME Branch FOR 30 DAYS cyclobenzap 3-0 Yes TAKE 1 Univ ers rine 10 mg 3-15 TABLET BY ity of tablet 00:00: [facility] THREE Medical TIMES A Branch DAY NEEDED FOR 30 DAYS amitriptyli 2023-0 Yes TAKE 1 Univ ers ne 50 mg 3-15 TABLET BY ity of tablet 00:00: [facility] EVERY DAY Medical AT BEDTIME Branch FOR 30 DAYS cyclobenzap 3-0 Yes TAKE 1 Univ ers rine 10 mg 3-15 TABLET BY ity of tablet 00:00: [facility] THREE Medical TIMES A Branch DAY NEEDED FOR 30 DAYS amitriptyli 2023-0 Yes TAKE 1 Univ ers ne 50 mg 3-15 TABLET BY ity of tablet 00:00: [facility] EVERY DAY Medical AT BEDTIME Branch FOR 30 DAYS cyclobenzap 2023-0 Yes TAKE 1 Univ ers rine 10 mg 3-15 TABLET BY ity of tablet 00:00: [facility] THREE Medical TIMES A Branch DAY NEEDED FOR 30 DAYS amitriptyli 2023-0 Yes TAKE 1 Univ ers ne 50 mg 3-15 TABLET BY ity of tablet 00:00: [facility] 00 EVERY DAY Medical AT BEDTIME Branch FOR 30 DAYS cyclobenzap 2023-0 Yes TAKE 1 Univ ers rine 10 mg 3-15 TABLET BY ity of tablet 00:00: [facility] THREE Medical TIMES A Branch DAY NEEDED [...] [facility] 3-0 Yes TAKE 1 Univ ers rine 10 mg 3-15 TABLET BY ity of tablet 00:00: MOUTH THREE Medical TIMES A Branch DAY NEEDED FOR 30 DAYS amitriptyli 3-0 Yes TAKE 1 Univ ers ne 50 mg 3-15 TABLET BY ity of tablet 00:00: [facility] EVERY DAY Medical AT BEDTIME Branch FOR [...] 3-15 TABLET BY ity of tablet 00:00: [facility] EVERY DAY Medical AT BEDTIME Branch FOR 30 DAYS cyclobenzap 3-0 Yes TAKE 1 Univ ers rine 10 mg 3-15 TABLET BY ity of tablet 00:00: [facility] THREE Medical TIMES A Branch DAY NEEDED FOR 30 DAYS amitriptyli 2023-0 Yes TAKE 1 Univ ers ne 50 mg 3-15 TABLET BY ity of tablet 00:00: [facility] EVERY DAY Medical AT BEDTIME Branch FOR 30 DAYS cyclobenzap 2022-0 Yes TAKE 1 Univ ers rine 10 mg 3-15 TABLET BY ity of tablet 00:00: [facility] THREE Medical TIMES A Branch DAY NEEDED FOR 30 DAYS amitriptyli 3-0 Yes TAKE 1 Univ ers ne 50 mg 3-15 TABLET BY ity of tablet 00:00: [facility] EVERY DAY Medical AT BEDTIME [place] FOR 30 DAYS cyclobenzap 3-0 Yes TAKE 1 Univ ers rine 10 mg 3-15 TABLET BY ity of tablet 00:00: [facility] THREE Medical TIMES A Branch DAY NEEDED FOR 30 DAYS amitriptyli 3-0 Yes TAKE 1 Univ ers ne 50 mg 3-15 TABLET BY ity of tablet 00:00: [facility] EVERY DAY Medical AT BEDTIME [place] FOR 30 DAYS cyclobenzap 3-0 Yes TAKE 1 Univ ers rine 10 mg 3-15 TABLET BY ity of tablet 00:00: [facility] THREE Medical TIMES A Branch DAY NEEDED FOR 30 DAYS amitriptyli 2023-0 Yes TAKE 1 Univ ers ne 50 mg 3-15 TABLET BY ity of tablet 00:00: [facility] EVERY DAY Medical AT BEDTIME Branch FOR 30 DAYS cyclobenzap 3-0 Yes TAKE 1 Univ ers rine 10 mg 3-15 TABLET BY ity of tablet 00:00: [facility] THREE Medical TIMES A Branch DAY NEEDED FOR 30 DAYS amitriptyli 2023-0 Yes TAKE 1 Univ ers ne 50 mg 3-15 TABLET BY ity of tablet 00:00: [facility] EVERY DAY Medical AT BEDTIME Branch FOR 30 DAYS cyclobenzap 2023-0 Yes TAKE 1 Univ ers rine 10 mg 3-15 TABLET BY ity of tablet 00:00: MOUTH 00 THREE Medical TIMES A Branch DAY NEEDED FOR 30 DAYS amitriptyli 2023-0 Yes TAKE 1 Univ ers ne 50 mg 3-15 TABLET BY ity of tablet 00:00: [facility] EVERY DAY Medical AT BEDTIME Branch FOR 30 DAYS cyclobenzap 2023-0 Yes TAKE 1 Univ ers rine 10 mg 3-15 TABLET BY ity of tablet 00:00: [facility] THREE Medical TIMES A Branch DAY NEEDED FOR 30 DAYS amitriptyli 2023-0 Yes TAKE 1 Univ ers ne 50 mg 3-15 TABLET BY ity of tablet 00:00: [facility] EVERY DAY Medical AT BEDTIME Branch FOR 30 DAYS cyclobenzap 3-0 Yes TAKE 1 Univ ers rine 10 mg 3-15 TABLET BY ity of tablet 00:00: [facility] THREE Medical TIMES A Branch DAY NEEDED FOR 30 DAYS amitriptyli 2023-0 Yes TAKE 1 Univ ers ne 50 mg 3-15 TABLET BY ity of tablet 00:00: [facility] EVERY DAY Medical AT BEDTIME Branch FOR 30 DAYS cyclobenzap 3-0 Yes TAKE 1 Univ ers rine 10 mg 3-15 TABLET BY ity of tablet 00:00: [facility] THREE Medical TIMES A Branch DAY NEEDED FOR 30 DAYS amitriptyli 2023-0 Yes TAKE 1 Univ ers ne 50 mg 3-15 TABLET BY ity of tablet 00:00: [facility]ap 3-0 Yes TAKE 1 Univ ers rine 10 mg 3-15 TABLET BY ity of tablet 00:00: [facility] THREE Medical TIMES A Branch DAY NEEDED FOR 30 DAYS amitriptyli 2023-0 Yes TAKE 1 Univ ers ne 50 mg 3-15 TABLET BY ity of tablet 00:00: [facility] EVERY DAY Medical AT BEDTIME Branch FOR 30 DAYS cyclobenzap 3-0 Yes TAKE 1 Univ ers rine 10 mg 3-15 TABLET BY ity of tablet 00:00: [facility] THREE Medical TIMES A Branch DAY NEEDED FOR 30 DAYS amitriptyli 2023-0 Yes TAKE 1 Univ ers ne 50 mg 3-15 TABLET BY ity of tablet 00:00: [facility] EVERY DAY Medical AT BEDTIME Branch FOR 30 DAYS cyclobenzap 2023-0 Yes TAKE 1 Univ ers rine 10 mg 3-15 TABLET BY ity of tablet 00:00: MOUTH 00 THREE Medical TIMES A Branch DAY NEEDED FOR 30 DAYS amitriptyli 3-0 Yes TAKE 1 Univ ers ne 50 mg 3-15 TABLET BY ity of tablet 00:00: [facility] cyclobenzap 3-0 Yes TAKE 1 Univ ers rine 10 mg 3-15 TABLET BY ity of tablet 00:00: [facility] THREE Medical TIMES A Branch DAY NEEDED FOR 30 DAYS amitriptyli 3-0 Yes TAKE 1 Univ ers ne 50 mg 3-15 TABLET BY ity of tablet 00:00: [facility] EVERY DAY Medical AT BEDTIME [place] FOR 30 DAYS cyclobenzap 2022-0 Yes TAKE 1 Univ ers rine 10 mg 3-15 TABLET BY ity of tablet 00:00: [facility] THREE Medical TIMES A Branch DAY NEEDED FOR 30 DAYS amitriptyli 3-0 Yes TAKE 1 Univ ers ne 50 mg 3-15 TABLET BY ity of tablet 00:00: [facility] cyclobenzap 3-0 Yes TAKE 1 Univ ers rine 10 mg 3-15 TABLET BY ity of tablet 00:00: [facility] THREE Medical TIMES A Branch DAY NEEDED FOR 30 DAYS amitriptyli 3-0 Yes TAKE 1 Univ ers ne 50 mg 3-15 TABLET BY ity of tablet 00:00: [facility] cyclobenzap 3-0 Yes TAKE 1 Univ ers rine 10 mg 3-15 TABLET BY ity of tablet 00:00: [facility] THREE Medical TIMES A Branch DAY NEEDED FOR 30 DAYS amitriptyli 2023-0 Yes TAKE 1 Univ ers ne 50 mg 3-15 TABLET BY ity of tablet 00:00: [facility] EVERY DAY Medical AT BEDTIME [place] FOR 30 DAYS cyclobenzap 3-0 Yes TAKE 1 Univ ers rine 10 mg 3-15 TABLET BY ity of tablet 00:00: [facility] THREE Medical TIMES A Branch DAY NEEDED FOR 30 DAYS amitriptyli 2023-0 Yes TAKE 1 Univ ers ne 50 mg 3-15 TABLET BY ity of tablet 00:00: [facility] EVERY DAY Medical AT [facility] FOR 30 DAYS cyclobenzap 2023-0 Yes TAKE 1 Univ ers rine 10 mg 3-15 TABLET BY ity of tablet 00:00: [facility] THREE Medical TIMES A Branch DAY NEEDED FOR 30 DAYS amitriptyli 3-0 Yes TAKE 1 Univ ers ne 50 mg 3-15 TABLET BY ity of tablet 00:00: [facility] cyclobenzap 2022-0 Yes TAKE 1 Univ ers rine 10 mg 3-15 TABLET BY ity of tablet 00:00: [facility] THREE Medical TIMES A Branch DAY NEEDED FOR 30 DAYS amitriptyli 2022-0 Yes TAKE 1 Univ ers ne 50 mg 3-15 TABLET BY ity of tablet 00:00: [facility] cyclobenzap 2022-0 Yes TAKE 1 Univ ers rine 10 mg 3-15 TABLET BY ity of tablet 00:00: [facility] THREE Medical TIMES A Branch DAY NEEDED FOR 30 DAYS amitriptyli 3-0 Yes TAKE 1 Univ ers ne 50 mg 3-15 TABLET BY ity of tablet 00:00: [facility] EVERY DAY Medical AT [facility] FOR 30 DAYS cyclobenzap 2022-0 Yes TAKE 1 Univ ers rine 10 mg 3-15 TABLET BY ity of tablet 00:00: [facility] THREE Medical TIMES A Branch DAY NEEDED FOR 30 DAYS amitriptyli 3-0 Yes TAKE 1 Univ ers ne 50 mg 3-15 TABLET BY ity of tablet 00:00: [facility] EVERY DAY Medical AT [facility] FOR 30 DAYS cyclobenzap 3-0 Yes TAKE 1 Univ ers rine 10 mg 3-15 TABLET BY ity of tablet 00:00: [facility] THREE Medical TIMES A Branch DAY NEEDED FOR 30 DAYS amitriptyli 3-0 Yes TAKE 1 Univ ers ne 50 mg 3-15 TABLET BY ity of tablet 00:00: [facility] EVERY DAY Medical AT BEDTIME [place] FOR 30 DAYS cyclobenzap 3-0 Yes TAKE 1 Univ ers rine 10 mg 3-15 TABLET BY ity of tablet 00:00: [facility] THREE Medical TIMES A Branch DAY NEEDED [...] 3-15 TABLET BY ity of tablet 00:00: [facility] cyclobenzap 2023-0 Yes TAKE 1 Univ ers rine 10 mg 3-15 TABLET BY ity of tablet 00:00: MOUTH THREE Medical TIMES A Branch DAY NEEDED FOR 30 DAYS amitriptyli 3-0 Yes TAKE 1 Univ ers ne 50 mg 3-15 TABLET BY ity of tablet 00:00: [facility] cyclobenzap 3-0 Yes TAKE 1 Univ ers rine 10 mg 3-15 TABLET BY ity of tablet 00:00: [facility] THREE Medical TIMES A Branch DAY NEEDED FOR 30 DAYS amitriptyli 2023-0 Yes TAKE 1 Univ ers ne 50 mg 3-15 TABLET BY ity of tablet 00:00: [facility] EVERY DAY Medical AT BEDTIME Branch FOR 30 DAYS cyclobenzap 3-0 Yes TAKE 1 Univ ers rine 10 mg 3-15 TABLET BY ity of tablet 00:00: [facility] THREE Medical TIMES A Branch DAY NEEDED FOR 30 DAYS amitriptyli 2023-0 Yes TAKE 1 Univ ers ne 50 mg 3-15 TABLET BY ity of tablet 00:00: [facility] EVERY DAY Medical AT BEDTIME [place] FOR 30 DAYS cyclobenzap 2023-0 Yes TAKE 1 Univ ers rine 10 mg 3-15 TABLET BY ity of tablet 00:00: [facility] THREE Medical TIMES A Branch DAY NEEDED FOR 30 DAYS amitriptyli 2023-0 Yes TAKE 1 Univ ers ne 50 mg 3-15 TABLET BY ity of tablet 00:00: [facility] EVERY DAY Medical AT BEDTIME Branch FOR 30 DAYS cyclobenzap 2023-0 Yes TAKE 1 Univ ers rine 10 mg 3-15 TABLET BY ity of tablet 00:00: [facility] THREE Medical TIMES A Branch DAY NEEDED FOR 30 DAYS amitriptyli 2023-0 Yes TAKE 1 Univ ers ne 50 mg 3-15 TABLET BY ity of tablet 00:00: [facility] EVERY DAY Medical AT BEDTIME Branch FOR 30 DAYS cyclobenzap 3-0 Yes TAKE 1 Univ ers rine 10 mg 3-15 TABLET BY ity of tablet 00:00: [facility] THREE Medical TIMES A Branch DAY NEEDED FOR 30 DAYS amitriptyli 2023-0 Yes TAKE 1 Univ ers ne 50 mg 3-15 TABLET BY ity of tablet 00:00: [facility] cyclobenzap 2022-0 Yes TAKE 1 Univ ers rine 10 mg 3-15 TABLET BY ity of tablet 00:00: [facility] THREE Medical TIMES A Branch DAY NEEDED FOR 30 DAYS amitriptyli 3-0 Yes TAKE 1 Univ ers ne 50 mg 3-15 TABLET BY ity of tablet 00:00: [facility] EVERY DAY Medical AT BEDTIME [place] FOR 30 DAYS cyclobenzap 2022-0 Yes TAKE 1 Univ ers rine 10 mg 3-15 TABLET BY ity of tablet 00:00: [facility] THREE Medical TIMES A Branch DAY NEEDED FOR 30 DAYS amitriptyli 3-0 Yes TAKE 1 Univ ers ne 50 mg 3-15 TABLET BY ity of tablet 00:00: [facility]ap 3-0 Yes TAKE 1 Univ ers rine 10 mg 3-15 TABLET BY ity of tablet 00:00: [facility] THREE Medical TIMES A Branch DAY NEEDED FOR 30 DAYS amitriptyli 2023-0 Yes TAKE 1 Univ ers ne 50 mg 3-15 TABLET BY ity of tablet 00:00: [facility] EVERY DAY Medical AT BEDTIME Branch FOR 30 DAYS cyclobenzap 3-0 Yes TAKE 1 Univ ers rine 10 mg 3-15 TABLET BY ity of tablet 00:00: [facility] THREE Medical TIMES A Branch DAY NEEDED FOR 30 DAYS amitriptyli 2023-0 Yes TAKE 1 Univ ers ne 50 mg 3-15 TABLET BY ity of tablet 00:00: [facility] EVERY DAY Medical AT BEDTIME Branch FOR 30 DAYS cyclobenzap 3-0 Yes TAKE 1 Univ ers rine 10 mg 3-15 TABLET BY ity of tablet 00:00: [facility] 00 THREE Medical TIMES A Branch DAY NEEDED FOR 30 DAYS amitriptyli 3-0 Yes TAKE 1 Univ ers ne 50 mg 3-15 TABLET BY ity of tablet 00:00: MOUTH EVERY DAY Medical AT [facility] FOR 30 DAYS cyclobenzap 2022-0 Yes TAKE 1 Univ ers rine 10 mg 3-15 TABLET BY ity of tablet 00:00: MOUTH THREE Medical TIMES A Branch DAY NEEDED FOR 30 DAYS amitriptyli 3-0 Yes TAKE 1 Univ ers ne 50 mg 3-15 TABLET BY ity of tablet 00:00: MOUTH EVERY DAY Medical AT [facility] FOR 30 DAYS cyclobenzap 2022-0 Yes TAKE 1 Univ ers rine 10 mg 3-15 TABLET BY ity of tablet 00:00: [facility] THREE Medical TIMES A Branch DAY NEEDED FOR 30 DAYS amitriptyli 2022-0 Yes TAKE 1 Univ ers ne 50 mg 3-15 TABLET BY ity of tablet 00:00: [facility] EVERY DAY Medical AT [facility] FOR 30 DAYS cyclobenzap 2022-0 Yes TAKE 1 Univ ers rine 10 mg 3-15 TABLET BY ity of tablet 00:00: MOUTH THREE Medical TIMES A Branch DAY NEEDED FOR 30 DAYS amitriptyli 2022-0 Yes TAKE 1 Univ ers ne 50 mg 3-15 TABLET BY ity of tablet 00:00: [facility] EVERY DAY Medical AT [facility] FOR 30 DAYS cyclobenzap 2022-0 Yes TAKE 1 Univ ers rine 10 mg 3-15 TABLET BY ity of tablet 00:00: [facility] THREE Medical TIMES A Branch DAY NEEDED FOR 30 DAYS amitriptyli 3-0 Yes TAKE 1 Univ ers ne 50 mg 3-15 TABLET BY ity of tablet 00:00: MOUTH [facility] cyclobenzap 2022-0 Yes TAKE 1 Univ ers rine 10 mg 3-15 TABLET BY ity of tablet 00:00: [facility] THREE Medical TIMES A Branch DAY NEEDED FOR 30 DAYS amitriptyli 2022-0 Yes TAKE 1 Univ ers ne 50 mg 3-15 TABLET BY ity of tablet 00:00: [facility] NaCl 0.9% 2022-0 202- No 500mL at 999 Univ ers (NS) bolus 11-03 mL/hr, 500 it y of infusion 15:45: 16:19 mL, IV [place] 500 mL 00 :00 Piggyback, Medical ONCE, 1 Branch dose, On 11/03/22 at 0945, STAT LORazepam 2022-0 2022- No 1mg 1 mg, Slow U nivers (ATIVAN) 11-03 IV Push, ity of injection 1 15:00: 15:23 [place]CE[place] 1 [place] mg 00 :[place] dose, On Medical Tue Branch 11/03/22 at 0900, STAT diphenhydrA 2022-0 2022- No 25mg 25 mg, Uni vers MINE 11-03 Slow IV ity of (BENADRYL) 15:00: 15:18 Push, [place] injection 00 :00 ONCE, 1 Medical 25 mg dose, On Branch Wed11/03/22 at 0900, STAT LORazepam 2022-0 Yes [id number] 1mg Take 1 U nivers (ATIVAN) 1 2-28 tablet by ity of mg tablet 00:00: mouth 2 (two) Medical times Branch daily as needed for Anxiety or Agitation. hydrOXYzine 2023-0 Yes [id number] 25mg Take 1 Univers (VISTARIL) 2-28 capsule by ity of 25 mg 00:00: mouth 3 [place] capsule 00 (three) Medical times Branch daily as needed for Anxiety. LORazepam 3-0 Yes [id number] 1mg Take 1 U nivers (ATIVAN) 1 2-28 tablet by ity of mg tablet 00:00: mouth 2 00 (two) Medical times Branch daily as needed for Anxiety or Agitation. hydrOXYzine 2023-0 Yes [id number] 25mg Take 1 Univers (VISTARIL) 2-28 capsule by ity of 25 mg 00:00: mouth 3 [place] capsule 00 (three) Medical times Branch daily as needed for Anxiety. LORazepam 2023-0 Yes [id number] 1mg Take 1 U nivers (ATIVAN) 1 2-28 tablet by ity of mg tablet 00:00: mouth 2 00 (two) Medical times Branch daily as needed for Anxiety or Agitation. hydrOXYzine 2023-0 Yes [id number] 25mg Take 1 Univers (VISTARIL) 2-28 capsule by ity of 25 mg 00:00: mouth 3 [place] capsule 00 (three) Medical times Branch daily as needed for Anxiety. LORazepam 2023-0 Yes [id number] 1mg Take 1 U nivers (ATIVAN) 1 2-28 tablet by ity of mg tablet 00:00: mouth 2 [place] 00 (two) Medical times Branch daily as needed for Anxiety or Agitation. hydrOXYzine 2023-0 Yes [id number] 25mg Take 1 Univers (VISTARIL) 2-28 capsule by ity of 25 mg 00:00: mouth 3 [place] capsule 00 (three) Medical times Branch daily as needed for Anxiety. LORazepam 2023-0 Yes [id number] 1mg Take 1 U nivers (ATIVAN) 1 2-28 tablet by ity of mg tablet 00:00: mouth 2 [place] 00 (two) Medical times Branch daily as needed for Anxiety or Agitation. hydrOXYzine 2023-0 Yes [id number] 25mg Take 1 Univers (VISTARIL) 2-28 capsule by ity of 25 mg 00:00: mouth 3 [place] capsule 00 (three) Medical times Branch daily as needed for Anxiety. LORazepam 2023-0 Yes [id number] 1mg Take 1 U nivers (ATIVAN) 1 2-28 tablet by ity of mg tablet 00:00: mouth 2 [place] 00 (two) Medical times Branch daily as needed for Anxiety or Agitation. hydrOXYzine 2023-0 Yes [id number] 25mg Take 1 Univers (VISTARIL) 2-28 capsule by ity of 25 mg 00:00: mouth 3 [place] capsule 00 (three) Medical times Branch daily as needed for Anxiety. LORazepam 2023-0 Yes [id number] 1mg Take 1 U nivers (ATIVAN) 1 2-28 tablet by ity of mg tablet 00:00: mouth 2 [place] 00 (two) Medical times Branch daily as needed for Anxiety or Agitation. hydrOXYzine 2023-0 Yes [id number] 25mg Take 1 Univers (VISTARIL) 2-28 capsule by ity of 25 mg 00:00: mouth 3 [place] capsule 00 (three) Medical times Branch daily as needed for Anxiety. LORazepam 2023-0 Yes [id number] 1mg Take 1 U nivers (ATIVAN) 1 2-28 tablet by ity of mg tablet 00:00: mouth 2 [place] 00 (two) Medical times Branch daily as needed for Anxiety or Agitation. hydrOXYzine 2023-0 Yes [id number] 25mg Take 1 Univers (VISTARIL) 2-28 capsule by ity of 25 mg 00:00: mouth 3 [place] capsule 00 (three) Medical times Branch daily as needed for Anxiety. LORazepam 2023-0 Yes [id number] 1mg Take 1 U nivers (ATIVAN) 1 2-28 tablet by ity of mg tablet 00:00: mouth 2 [place] 00 (two) Medical times Branch daily as needed for Anxiety or Agitation. hydrOXYzine 2023-0 Yes [id number] 25mg Take 1 Univers (VISTARIL) 2-28 capsule by ity of 25 mg 00:00: mouth 3 [place] capsule 00 (three) Medical times Branch daily as needed for Anxiety. LORazepam 2023-0 Yes [id number] 1mg Take 1 U nivers (ATIVAN) 1 2-28 tablet by ity of mg tablet 00:00: mouth 2 (two) Medical times Branch daily as needed for Anxiety or Agitation. hydrOXYzine 2023-0 Yes [id number] 25mg Take 1 [facility] (VISTARIL) 2-28 capsule by ity of 25 mg 00:00: mouth 3 [place] capsule 00 (three) Medical times Branch daily as needed for Anxiety. LORazepam 2023-0 Yes [id number] 1mg Take 1 [facility] (ATIVAN) 1 2-28 tablet by ity of mg tablet 00:00: mouth 2 (two) Medical times Branch daily as needed for Anxiety or Agitation. hydrOXYzine 2023-0 Yes [id number] 25mg Take 1 [facility] (VISTARIL) 2-28 capsule by ity of 25 mg 00:00: mouth 3 [place] capsule 00 (three) Medical times Branch daily as needed for Anxiety. LORazepam 2023-0 Yes [id number] 1mg Take 1 [facility] (ATIVAN) 1 2-28 tablet by ity of mg tablet 00:00: mouth 2 [place] 00 (two) Medical times Branch daily as needed for Anxiety or Agitation. hydrOXYzine 2023-0 Yes [id number] 25mg Take 1 [facility] (VISTARIL) 2-28 capsule by ity of 25 mg 00:00: mouth 3 [place] capsule 00 (three) Medical times Branch daily as needed for Anxiety. LORazepam 2023-0 Yes [id number] 1mg Take 1 [facility] (ATIVAN) 1 2-28 tablet by ity of mg tablet 00:00: mouth 2 [place] 00 (two) Medical times Branch daily as needed for Anxiety or Agitation. hydrOXYzine 2023-0 Yes [id number] 25mg Take 1 [facility] (VISTARIL) 2-28 capsule by ity of 25 mg 00:00: mouth 3 [place] capsule 00 (three) Medical times Branch daily as needed for Anxiety. LORazepam 2023-0 Yes [id number] 1mg Take 1 [facility] (ATIVAN) 1 2-28 tablet by ity of mg tablet 00:00: mouth 2 [place] 00 (two) Medical times Branch daily as needed for Anxiety or Agitation. hydrOXYzine 2023-0 Yes [id number] 25mg Take 1 [facility] (VISTARIL) 2-28 capsule by ity of 25 mg 00:00: mouth 3 [place] capsule 00 (three) Medical times Branch daily as needed for Anxiety. LORazepam 2023-0 Yes [id number] 1mg Take 1 [facility] (ATIVAN) 1 2-28 tablet by ity of mg tablet 00:00: mouth 2 00 (two) Medical times Branch daily as needed for Anxiety or Agitation. hydrOXYzine 2023-0 Yes [id number] 25mg Take 1 [facility] (VISTARIL) 2-28 capsule by ity of 25 mg 00:00: mouth 3 [place] capsule 00 (three) Medical times Branch daily as needed for Anxiety. LORazepam 2023-0 Yes [id number] 1mg Take 1 [facility] (ATIVAN) 1 2-28 tablet by ity of mg tablet 00:00: mouth 2 [place] 00 (two) Medical times Branch daily as needed for Anxiety or Agitation. hydrOXYzine 2023-0 Yes [id number] 25mg Take 1 [facility] (VISTARIL) 2-28 capsule by ity of 25 mg 00:00: mouth 3 [place] capsule 00 (three) Medical times Branch daily as needed for Anxiety. LORazepam 2023-0 Yes [id number] 1mg Take 1 [facility] (ATIVAN) 1 2-28 tablet by ity of mg tablet 00:00: mouth 2 [place] 00 (two) Medical times Branch daily as needed for Anxiety or Agitation. hydrOXYzine 2023-0 Yes [id number] 25mg Take 1 [facility] (VISTARIL) 2-28 capsule by ity of 25 mg 00:00: mouth 3 [place] capsule 00 (three) Medical times Branch daily as needed for Anxiety. LORazepam 2023-0 Yes [id number] 1mg Take 1 [facility] (ATIVAN) 1 2-28 tablet by ity of mg tablet 00:00: mouth 2 [place] 00 (two) Medical times Branch daily as needed for Anxiety or Agitation. hydrOXYzine 2023-0 Yes [id number] 25mg Take 1 [facility] (VISTARIL) 2-28 capsule by ity of 25 mg 00:00: mouth 3 [place] capsule 00 (three) Medical times Branch daily as needed for Anxiety. LORazepam 2023-0 Yes [id number] 1mg Take 1 [facility] (ATIVAN) 1 2-28 tablet by ity of mg tablet 00:00: mouth 2 (two) Medical times Branch daily as needed for Anxiety or Agitation. hydrOXYzine 2023-0 Yes [id number] 25mg Take 1 [facility] (VISTARIL) 2-28 capsule by ity of 25 mg 00:00: mouth 3 [place] capsule 00 (three) Medical times Branch daily as needed for Anxiety. LORazepam 2023-0 Yes [id number] 1mg Take 1 [facility] (ATIVAN) 1 2-28 tablet by ity of mg tablet 00:00: mouth 2 (two) Medical times Branch daily as needed for Anxiety or Agitation. hydrOXYzine 2023-0 Yes [id number] 25mg Take 1 [facility] (VISTARIL) 2-28 capsule by ity of 25 mg 00:00: mouth 3 [place] capsule 00 (three) Medical times Branch daily as needed for Anxiety. LORazepam 2023-0 Yes [id number] 1mg Take 1 [facility] (ATIVAN) 1 2-28 tablet by ity of mg tablet 00:00: mouth 2 00 (two) Medical times Branch daily as needed for Anxiety or Agitation. hydrOXYzine 2023-0 Yes [id number] 25mg Take 1 [facility] (VISTARIL) 2-28 capsule by ity of 25 mg 00:00: mouth 3 [place] capsule 00 (three) Medical times Branch daily as needed for Anxiety. LORazepam 2023-0 Yes [id number] 1mg Take 1 [facility] (ATIVAN) 1 2-28 tablet by ity of mg tablet 00:00: mouth 2 [place] 00 (two) Medical times Branch daily as needed for Anxiety or Agitation. hydrOXYzine 2023-0 Yes [id number] 25mg Take 1 [facility] (VISTARIL) 2-28 capsule by ity of 25 mg 00:00: mouth 3 [place] capsule 00 (three) Medical times Branch daily as needed for Anxiety. LORazepam 2023-0 Yes [id number] 1mg Take 1 [facility] (ATIVAN) 1 2-28 tablet by ity of mg tablet 00:00: mouth 2 [place] 00 (two) Medical times Branch daily as needed for Anxiety or Agitation. hydrOXYzine 2023-0 Yes [id number] 25mg Take 1 [facility] (VISTARIL) 2-28 capsule by ity of 25 mg 00:00: mouth 3 [place] capsule 00 (three) Medical times Branch daily as needed for Anxiety. LORazepam 2023-0 Yes [id number] 1mg Take 1 [facility] (ATIVAN) 1 2-28 tablet by ity of mg tablet 00:00: mouth 2 (two) Medical times Branch daily as needed for Anxiety or Agitation. hydrOXYzine 2023-0 Yes [id number] 25mg Take 1 [facility] (VISTARIL) 2-28 capsule by ity of 25 mg 00:00: mouth 3 [place] capsule 00 (three) Medical times Branch daily as needed for Anxiety. LORazepam 2023-0 Yes [id number] 1mg Take 1 [facility] (ATIVAN) 1 2-28 tablet by ity of mg tablet 00:00: mouth 2 (two) Medical times Branch daily as needed for Anxiety or Agitation. LORazepam 2023-0 Yes [id number] 1mg Take 1 [facility] (ATIVAN) 1 2-28 tablet by ity of mg tablet 00:00: mouth 2 00 (two) Medical times Branch daily as needed for Anxiety or Agitation. LORazepam 2023-0 Yes [id number] 1mg Take 1 [facility] (ATIVAN) 1 2-28 tablet by ity of mg tablet 00:00: mouth 2 00 (two) Medical times Branch daily as needed for Anxiety or Agitation. LORazepam 2023-0 Yes [id number] 1mg Take 1 [facility] (ATIVAN) 1 2-28 tablet by ity of mg tablet 00:00: mouth (two) Medical times Branch daily as needed for Anxiety or Agitation. LORazepam 2023-0 Yes [id number] 1mg Take 1 [facility] (ATIVAN) 1 2-28 tablet by ity of mg tablet 00:00: mouth 2 (two) Medical times Branch daily as needed for Anxiety or Agitation. LORazepam 2023-0 Yes [id number] 1mg Take 1 [facility] (ATIVAN) 1 2-28 tablet by ity of mg tablet 00:00: mouth (two) Medical times Branch daily as needed for Anxiety or Agitation. LORazepam 2023-0 Yes [id number] 1mg Take 1 [facility] (ATIVAN) 1 2-28 tablet by ity of mg tablet 00:00: mouth (two) Medical times Branch daily as needed for Anxiety or Agitation. LORazepam 3-0 Yes [id number] 1mg Take 1 [facility] (ATIVAN) 1 2-28 tablet by ity of mg tablet 00:00: mouth (two) Medical times Branch daily as needed for Anxiety or Agitation. LORazepam 3-0 Yes [id number] 1mg Take 1 [facility] (ATIVAN) 1 2-28 tablet by ity of mg tablet 00:00: mouth (two) Medical times Branch daily as needed for Anxiety or Agitation. LORazepam 2023-0 Yes [id number] 1mg Take 1 [facility] (ATIVAN) 1 2-28 tablet by ity of mg tablet 00:00: mouth (two) Medical times Branch daily as needed for Anxiety or Agitation. LORazepam 2023-0 Yes [id number] 1mg Take 1 [facility] (ATIVAN) 1 2-28 tablet by ity of mg tablet 00:00: mouth (two) Medical times Branch daily as needed for Anxiety or Agitation. LORazepam 2023-0 Yes [id number] 1mg Take 1 [facility] (ATIVAN) 1 2-28 tablet by ity of mg tablet 00:00: mouth (two) Medical times Branch daily as needed for Anxiety or Agitation. LORazepam 2023-0 Yes [id number] 1mg Take 1 [facility] (ATIVAN) 1 2-28 tablet by ity of mg tablet 00:00: mouth (two) Medical times Branch daily as needed for Anxiety or Agitation. LORazepam 2023-0 Yes [id number] 1mg Take 1 [facility] (ATIVAN) 1 2-28 tablet by ity of mg tablet 00:00: mouth (two) Medical times Branch daily as needed for Anxiety or Agitation. LORazepam 2023-0 Yes [id number] 1mg Take 1 [facility] (ATIVAN) 1 2-28 tablet by ity of mg tablet 00:00: mouth (two) Medical times Branch daily as needed for Anxiety or Agitation. LORazepam 2023-0 Yes [id number] 1mg Take 1 [facility] (ATIVAN) 1 2-28 tablet by ity of mg tablet 00:00: mouth (two) Medical times Branch daily as needed for Anxiety or Agitation. LORazepam 2023-0 Yes [id number] 1mg Take 1 [facility] (ATIVAN) 1 2-28 tablet by ity of mg tablet 00:00: mouth (two) Medical times Branch daily as needed for Anxiety or Agitation. LORazepam 2023-0 Yes [id number] 1mg Take 1 [facility] (ATIVAN) 1 2-28 tablet by ity of mg tablet 00:00: mouth (two) Medical times Branch daily as needed for Anxiety or Agitation. LORazepam 2023-0 Yes [id number] 1mg Take 1 [facility] (ATIVAN) 1 2-28 tablet by ity of mg tablet 00:00: mouth (two) Medical times Branch daily as needed for Anxiety or Agitation. LORazepam 2023-0 Yes [id number] 1mg Take 1 [facility] (ATIVAN) 1 2-28 tablet by ity of mg tablet 00:00: mouth (two) Medical times Branch daily as needed for Anxiety or Agitation. LORazepam 2023-0 Yes [id number] 1mg Take 1 [facility] (ATIVAN) 1 2-28 tablet by ity of mg tablet 00:00: mouth (two) Medical times Branch daily as needed for Anxiety or Agitation. LORazepam 2023-0 Yes [id number] 1mg Take 1 [facility] (ATIVAN) 1 2-28 tablet by ity of mg tablet 00:00: mouth 2 [place] (two) Medical times Branch daily as needed for Anxiety or Agitation. LORazepam 2023-0 Yes [id number] 1mg Take 1 [facility] (ATIVAN) 1 2-28 tablet by ity of mg tablet 00:00: mouth 2 [place] 00 (two) Medical times Branch daily as needed for Anxiety or Agitation. LORazepam 2023-0 Yes [id number] 1mg Take 1 [facility] (ATIVAN) 1 2-28 tablet by ity of mg tablet 00:00: mouth 2 [place] (two) Medical times Branch daily as needed for Anxiety or Agitation. LORazepam 2023-0 Yes [id number] 1mg Take 1 [facility] (ATIVAN) 1 2-28 tablet by ity of mg tablet 00:00: mouth 2 (two) Medical times Branch daily as needed for Anxiety or Agitation. hydrOXYzine 2023-0 Yes [id number] 25mg Take 1 [facility] (VISTARIL) 2-28 capsule by ity of 25 mg 00:00: mouth 3 [place] capsule 00 (three) Medical times Branch daily as needed for Anxiety. LORazepam 2023-0 Yes [id number] 1mg Take 1 [facility] (ATIVAN) 1 2-28 tablet by ity of mg tablet 00:00: mouth 2 (two) Medical times Branch daily as needed for Anxiety or Agitation. hydrOXYzine 2023-0 Yes [id number] 25mg Take 1 [facility] (VISTARIL) 2-28 capsule by ity of 25 mg 00:00: mouth 3 [place] capsule 00 (three) Medical times Branch daily as needed for Anxiety. LORazepam 2023-0 Yes [id number] 1mg Take 1 [facility] (ATIVAN) 1 2-28 tablet by ity of mg tablet 00:00: mouth 2 [place] 00 (two) Medical times Branch daily as needed for Anxiety or Agitation. hydrOXYzine 2023-0 Yes [id number] 25mg Take 1 [facility] (VISTARIL) 2-28 capsule by ity of 25 mg 00:00: mouth 3 [place] capsule 00 (three) Medical times Branch daily as needed for Anxiety. LORazepam 2023-0 Yes [id number] 1mg Take 1 [facility] (ATIVAN) 1 2-28 tablet by ity of mg tablet 00:00: mouth 2 [place] 00 (two) Medical times Branch daily as needed for Anxiety or Agitation. hydrOXYzine 2023-0 Yes [id number] 25mg Take 1 [facility] (VISTARIL) 2-28 capsule by ity of 25 mg 00:00: mouth 3 [place] capsule 00 (three) Medical times Branch daily as needed for Anxiety. LORazepam 2023-0 Yes [id number] 1mg Take 1 [facility] (ATIVAN) 1 2-28 tablet by ity of mg tablet 00:00: mouth 2 [place] 00 (two) Medical times Branch daily as needed for Anxiety or Agitation. hydrOXYzine 2023-0 Yes [id number] 25mg Take 1 [facility] (VISTARIL) 2-28 capsule by ity of 25 mg 00:00: mouth 3 [place] capsule 00 (three) Medical times Branch daily as needed for Anxiety. LORazepam 2023-0 Yes [id number] 1mg Take 1 [facility] (ATIVAN) 1 2-28 tablet by ity of mg tablet 00:00: mouth 2 (two) Medical times Branch daily as needed for Anxiety or Agitation. hydrOXYzine 2023-0 Yes [id number] 25mg Take 1 [facility] (VISTARIL) 2-28 capsule by ity of 25 mg 00:00: mouth 3 [place] capsule 00 (three) Medical times Branch daily as needed for Anxiety. LORazepam 2023-0 Yes [id number] 1mg Take 1 [facility] (ATIVAN) 1 2-28 tablet by ity of mg tablet 00:00: mouth 2 (two) Medical times Branch daily as needed for Anxiety or Agitation. hydrOXYzine 2023-0 Yes [id number] 25mg Take 1 [facility] (VISTARIL) 2-28 capsule by ity of 25 mg 00:00: mouth 3 [place] capsule 00 (three) Medical times Branch daily as needed for Anxiety. LORazepam 2023-0 Yes [id number] 1mg Take 1 [facility] (ATIVAN) 1 2-28 tablet by ity of mg tablet 00:00: mouth 2 [place] 00 (two) Medical times Branch daily as needed for Anxiety or Agitation. hydrOXYzine 2023-0 Yes [id number] 25mg Take 1 [facility] (VISTARIL) 2-28 capsule by ity of 25 mg 00:00: mouth 3 [place] capsule 00 (three) Medical times Branch daily as needed for Anxiety. hydrOXYzine 2022-2022- No [id number] 25mg Take 1 [facility] (VISTARIL) 11-03- capsule by it y of 25 mg 00:00: 00:00 mouth 3 [place] capsule 00 :00 (three) Medical times Branch daily as needed for Anxiety. hydrOXYzine 2022-0 2022- No [id number] 25mg Take 1 [facility] (VISTARIL) 11-03- capsule by it y of 25 mg 00:00: 00:00 mouth 3 [place] capsule 00 :00 (three) Medical times Branch daily as needed for Anxiety. iopamidol 2022- No [id number] 75mL 75 mL, [facility] (ISOVUE 10-13 Intravenou ity o f 370-500 mL) 09:30: 21:29 s, ONCE, 1 [place] injection 00 :00 dose, On Medica l 75 mL 10/13/22 Branch at 0330, Routine dicyclomine 2022- No 20mg 20 mg, Uni vers (BENTYL) 10-13 Intramuscu ity of injection 09:15: 21:14 lar, ONCE, [place] 20 mg 00 :00 1 dose, On Medical Tu 10/13/22 Branch at 0315, Routine famotidine Yes TAKE 1 Unive rs 20 mg 1-25 TABLET BY ity of tablet 00:00: MOUTH IN [place] [address] [facility] MORNING Branch AND IN THE EVENING FOR 5 DAYS famotidine 0 Yes TAKE 1 Unive rs 20 mg 1-25 TABLET BY ity of tablet 00:00: MOUTH IN [place] [address] THE [facility] MORNING Branch AND IN THE EVENING FOR 5 DAYS famotidine 0 Yes TAKE 1 Unive rs 20 mg 1-25 TABLET BY ity of tablet 00:00: MOUTH IN [place] [address] THE [facility] MORNING Branch AND IN THE EVENING FOR 5 DAYS famotidine 0 Yes TAKE 1 Unive rs 20 mg 1-25 TABLET BY ity of tablet 00:00: MOUTH IN [place] [address] THE [facility] MORNING Branch AND IN THE EVENING FOR 5 DAYS famotidine 2022-0 Yes TAKE 1 Unive rs 20 mg 1-25 TABLET BY ity of tablet 00:00: MOUTH IN [place] [address] THE Medical MORNING [place] AND IN THE EVENING FOR 5 DAYS famotidine 0 Yes TAKE 1 Unive rs 20 mg 1-25 TABLET BY ity of tablet 00:00: MOUTH IN [place] [address] THE Medical MORNING [place] AND IN THE EVENING FOR 5 DAYS famotidine 0 Yes TAKE 1 Unive rs 20 mg 1-25 TABLET BY ity of tablet 00:00: MOUTH IN [place] [address] THE [facility] MORNING [place] AND IN THE EVENING FOR 5 DAYS famotidine 0 Yes TAKE 1 Unive rs 20 mg 1-25 TABLET BY ity of tablet 00:00: MOUTH IN [place] [address] THE Medical MORNING Branch AND IN THE EVENING FOR 5 DAYS famotidine 0 Yes TAKE 1 Unive rs 20 mg 1-25 TABLET BY ity of tablet 00:00: MOUTH IN [place] [address] THE [facility] MORNING [place] AND IN THE EVENING FOR 5 DAYS famotidine 0 Yes TAKE 1 Unive rs 20 mg 1-25 TABLET BY ity of tablet 00:00: MOUTH IN [place] [address] THE [facility] MORNING [place] AND IN THE EVENING FOR 5 DAYS famotidine 2022-0 Yes TAKE 1 Unive rs 20 mg 1-25 TABLET BY ity of tablet 00:00: MOUTH IN [place] [address] THE [facility] MORNING [place] AND IN THE EVENING FOR 5 DAYS famotidine 0 Yes TAKE 1 Unive rs 20 mg 1-25 TABLET BY ity of tablet 00:00: MOUTH IN [place] [address] THE [facility] MORNING [place] AND IN THE EVENING FOR 5 DAYS famotidine 2022-0 202- No TAKE 1 Univ ers 20 mg 1-25 05-12 TABLET BY ity of tablet 00:00: 00:00 MOUTH IN [place] 00 :00 THE [facility] MORNING [place] AND IN THE EVENING FOR 5 DAYS famotidine 2022-0 2022- No 20mg 20 mg, Univ ers (PEPCID AC) 09-1005 Oral, ity of tablet 20 00:30: 00:53 ONCE, 1 [place] mg 00 :[place] dose, On Medical 09/09/22 Branch at 1830, LUPE dexamethaso 2022- No 10mg 10 mg, Uni vers ne sod phos 09-1005 Intramuscu i ty of PF 00:30: 00:53 lar, ONCE, [place] injection 00 :00 1 dose, On Medi shanice 10 mg 09/09/22 Branch at 1830, 1 mL predniSONE 2022- No [id number] 40mg Take 2 [facility] 20 mg 09-10- tablets by ity of tablet 00:00: 05:59 mouth in [place] 00 :00 the Medical morning Branch for 5 days. famotidine 2022- No [id number] 20mg Take 1 [facility] (PEPCID) 20 09-09 [...] 08/18/22 at 1800, Routine oseltamivir 2021-09- No [id number] 75mg Take 1 [facility] (TAMIFLU) 10-19 capsule by ity of 75 mg 00:00: 05:59 mouth in [place] capsule 00 :00 the Medical morning Branch [...] mouth. release Medical tablet Branch oxyCODONE 5 2-0 Yes 5mg Take 1 [facility] ers mg 9-28 tablet by ity of immediate 00:00: mouth. [place] release 00 Medical tablet Branch oxyCODONE 5 2-0 Yes 5mg Take 1 Univ ers mg 9-28 tablet by ity of immediate 00:00: mouth. release Medical tablet Branch oxyCODONE 5 2-0 [...] 00 :00 Medical tablet Branch oxyCODONE 5 2-0 2023- No 5mg Take 1 Uni vers mg 9-28 10-05 tablet by ity of immediate 00:00: 00:00 mouth. [place] 00 :00 Medical tablet Branch naproxen 2-0 [...] 500 mg ity of tablet 00:00: tablet [place] [facility] naproxen 2021-0 Yes naproxen Unive rs 500 mg 9-16 500 mg ity of tablet 00:00: tablet [place] [facility] naproxen 2-0 Yes naproxen Unive rs 500 mg 9-16 500 mg ity of tablet 00:00: tablet [place] [facility] naproxen 2-0 Yes naproxen Unive rs 500 mg 9-16 500 mg ity of tablet 00:00: tablet [place] [facility] naproxen 2021-0 Yes naproxen Unive rs 500 mg 9-16 500 mg ity of tablet 00:00: tablet [place] [facility] naproxen 2021-0 Yes naproxen Unive rs 500 mg 9-16 500 mg ity of tablet 00:00: tablet [place] [facility] naproxen 2021-0 Yes naproxen Unive rs 500 mg 9-16 500 mg ity of tablet 00:00: tablet [place] [facility] naproxen 2-0 3- No naproxen Univ ers 500 mg 9-16 05-12 500 mg ity of tablet 00:00: 00:00 tablet [place] 00 : Medical Branch prazosin 2 2021-0 Yes 2mg Take 1 Unive rs mg capsule 9-15 capsule by ity of 00:00: mouth. [place] [facility] prazosin 2 2021-0 Yes 2mg Take 1 Unive rs mg capsule 9-15 capsule by ity of 00:00: mouth. [place] [facility] prazosin 2 2021-0 Yes 2mg Take 1 Un[facility] rs mg capsule 9-15 capsule by ity of 00:00: mouth. [place] [facility] prazosin 2 2021-0 Yes 2mg Take 1 Un[facility] rs mg capsule 9-15 capsule by ity of 00:00: mouth. [place] [facility] prazosin 2 2021-0 Yes 2mg Take 1 Un[facility] rs mg capsule 9-15 capsule by ity of 00:00: mouth. [place] [facility] prazosin 2 2021-0 Yes 2mg Take 1 Unive rs mg capsule 9-15 capsule by ity of 00:00: mouth. [place] [facility] prazosin 2 2021-0 Yes 2mg [...] it y of 00:00: 00:00 mouth. 00 : Medical Branch naloxone 4 2021-0 Yes CALL [...] patch 00 patch Medical Branch lidocaine 5 2022-0 Yes lidocaine U nivers [...] 00 Medical Branch HYDROcodone 2021-0 2021- No [id number] 1{tbl} Q6H Take 1 Methodi -acetaminop 5-17 05-[address] [facility] [employer]) 13:50: 00:00 mouth [facility] 10-325 mg 15 :00 every 6 l per tablet (six) hours as needed .acute pain. prn HYDROcodone 2021-0 2021- No [id number] 1{tbl} Q6H Take 1 [facility] -acetaminop 5-17 05-[address] [facility] ([facility]) 13:50: 00:00 mouth [facility] 10-325 mg 15 :00 every 6 l per tablet (six) hours as needed .acute pain. prn [place] 2021-2021- [place] [id number] 1{tbl} Q6H Take 1 [facility] -acetaminop 5-17 05-[address] [facility] (TUNJIDC) 13:50: 00:00 mouth [facility] 10-325 mg 15 :00 every 6 l per tablet (six) hours as needed .acute pain. prn HYDROcodone 2021-0 2021- [place] [id number] 1{tbl} Q6H Take 1 [facility] -acetaminop 5-17 05-[address] [facility] (TUNJIDC) 13:50: 00:00 mouth [facility] 10-325 mg 15 :00 every 6 l per tablet (six) hours as needed .acute pain. prn [place]DROcod[place] 2021- [place] [id number] 1{tbl} Q6H Take 1 [facility] -acetaminop 5-17 05-[address] [facility] (TUNJIDC) 13:50: 00:00 mouth [facility] 10-325 mg [...] hours as needed for muscle spasms. tiZANidine 2021-2021- No 4mg Q8H Take 4 [...] 7 l days. cyclobenzap 2022-0 Yes 10mg Q.[id number] Take 10 mg Methodi rine 5-17 [id number] mouth [address] (FLEXERIL) 13:09: 3D [...] hours as needed. cyclobenzap 2022-0 Yes 10mg Q.[id number] Take 10 mg Methodi rine 5-17 [id number] [facility] [address] (FLEXERIL) 13:09: 3D [...] hours as needed. cyclobenzap 2022-0 Yes 10mg Q.[id number] Take 10 mg Methodi rine 5-17 [id number] [facility] [address] (FLEXERIL) 13:09: 3D [...] hours as needed. cyclobenzap 2022-0 Yes 10mg Q.[id number] Take 10 mg Methodi rine 5-17 [id number] [facility] [address] (FLEXERIL) 13:09: 3D [...] hours as needed. cyclobenzap 2022-0 Yes 10mg Q.[id number] Take 10 mg Methodi rine 5-17 [id number] mouth [address] (FLEXERIL) 13:09: 3D [...] hours as needed. cyclobenzap 2022-0 Yes 10mg Q.[id number] Take 10 mg Methodi rine 5-17 [id number] [address] [facility] [address] (FLEXERIL) 13:09: 3D [...] hours as needed. cyclobenzap 2022-0 Yes 10mg Q.[id number] Take 10 mg Methodi rine 5-17 [id number] [address] [facility] [address] (FLEXERIL) 13:09: 3D [...] hours as needed. cyclobenzap 2022-0 Yes 10mg Q.41220710 Take 10 mg Methodi rine 5-17 [id number] mouth [address] (FLEXERIL) 13:09: 3D [...] hours as needed. cyclobenzap 2022-0 Yes 10mg Q.[id number] Take 10 mg Methodi rine 5-17 [id number] [facility] [address] (FLEXERIL) 13:09: 3D [...] hours as needed. cyclobenzap 2022-0 Yes 10mg Q.[id number] Take 10 mg Methodi rine 5-17 [id number] mouth [address] (FLEXERIL) 13:09: 3D [...] hours as needed. cyclobenzap 2022-0 Yes 10mg Q.30657995 Take 10 mg Methodi rine 5-17 [id number] mouth [address] (FLEXERIL) 13:09: 3D [...] hours as needed. cyclobenzap 2022-0 Yes 10mg Q.50514060 Take 10 mg Methodi rine 5-17 [id number] [facility] [address] (FLEXERIL) 13:09: 3D [...] hours as needed. cyclobenzap 2022-0 Yes 10mg Q.[id number] Take 10 mg Methodi rine 5-17 [id number] mouth [address] (FLEXERIL) 13:09: 3D [...] hours as needed. cyclobenzap 2022-0 Yes 10mg Q.96849816 Take 10 mg Methodi rine 5-17 [id number] [facility] [address] (FLEXERIL) 13:09: 3D [...] hours as needed. cyclobenzap 2022-0 Yes 10mg Q.22126154 Take 10 mg Methodi rine 5-17 [id number] [facility] [address] (FLEXERIL) 13:09: 3D [...] hours as needed. cyclobenzap 2022-0 Yes 10mg Q.48253685 Take 10 mg Methodi rine 5-[id number] [facility] [address] (FLEXERIL) 13:09: 3D [...] hours as needed. cyclobenzap 2022-0 Yes 10mg Q.02515451 Take 10 mg Methodi rine 5-17 [id number] [facility] [address] (FLEXERIL) 13:09: 3D [...] hours as needed. cyclobenzap 2022-0 Yes 10mg Q.16752576 Take 10 mg Methodi rine 5-17 [id number] [facility] [address] (FLEXERIL) 13:09: 3D [...] hours as needed. cyclobenzap 2022-0 Yes 10mg Q.73792035 Take 10 mg Methodi rine 5-17 [id number] [facility] [address] (FLEXERIL) 13:09: 3D [...] hours as needed. cyclobenzap 2022-0 Yes 10mg Q.33784853 Take 10 mg Methodi rine 5-17 [id number] [facility] [address] (FLEXERIL) 13:09: 3D [...] 12 l (twelve) hours as needed. cyclobenzap Yes 10mg Q.74801644 Take 10 mg Methodi rine 5-17 [id number] [facility] [address] (FLEXERIL) 13:09: 3D (three) [facility] 10 mg 39 times a l tablet day as needed for muscle spasms. [place]DROcodone 2021-2021- [place] [id number] 1{tbl} Q6H Take 1 [facility] -acetaminop 5-17 06-[address] [employer]) 00:00: 04:59 mouth [facility] 10-325 mg 00 :00 every 6 l per tablet (six) hours as needed for severe pain for up to 30 days .chronic pain. prn Max Daily Amount: 4 tablets HYDROcodone 2021-0 2021- No [id number] 1{tbl} Q6H Take 1 [facility] -acetaminop 5-17 06-[address] [employer]) 00:00: 04:59 mouth [facility] 10-325 mg 00 :00 every 6 l per tablet (six) hours as needed for severe pain for up to 30 days .chronic pain. prn Max Daily Amount: 4 tablets HYDROcodone 2021-0 2021- No [id number] 1{tbl} Q6H Take 1 [facility] -acetaminop 5-17 06-17 tablet by [employer]) 00:00: 04:59 mouth [facility] 10-325 mg 00 :00 every 6 l per tablet (six) hours as needed for severe pain for up to 30 days .chronic pain. prn Max Daily Amount: 4 tablets [place]DRO[place]one 2021-2021- [place] [id number] 1{tbl} Q6H Take 1 [facility] -acetaminop 5-17 06-[address] [facility] ([facility]ful) 00:00: 04:59 mouth [facility] 10-325 mg 00 :00 every 6 l per tablet (six) hours as needed for severe pain for up to 30 days .chronic pain. prn Max Daily Amount: 4 tablets HYDROcodone 2021-0 2021- No [id number] 1{tbl} Q6H Take 1 [facility] -acetaminop 5-17 06-[address] ([facility]ful) 00:00: 04:59 [facility] 10-325 mg 00 :00 every 6 l per tablet (six) hours as needed for severe pain for up to 30 days .chronic pain. prn Max Daily Amount: 4 tablets [place]DROcodone 2021-2021- [place] [id number] 1{tbl} Q6H Take 1 [facility] -acetaminop 5-17 06-17 tablet by [facility] ([facility]UNJ[facility]) 00:00: 04:59 [facility] 10-325 mg 00 :00 every 6 l per tablet (six) hours as needed for severe pain for up to 30 days .chronic pain. prn Max Daily Amount: 4 tablets [place]DROcodone 2021-2021- [place] [id number] 1{tbl} Q6H Take 1 [facility] -acetaminop 5-17 06-17 tablet by [employer] ([facility]ful) 00:00: 04:59 [facility] 10-325 mg [...] up to 60 days. diazePAM 2020-09- No [id number] 10mg Q12H Take 1 [facility] ([facility]) 10 10-15 tablet (10 s t MG tablet 00:00: 05:59 mg total) [facility] :[facility] by mouth l every 12 (twelve) hours as needed for anxiety for up to 30 days. diazePAM 2020-09- No [id number] 10mg Q12H Take 1 [facility] ([facility]) 10 10-15 tablet (10 s t MG tablet 00:00: 05:59 mg total) [facility] 00 :00 by mouth l every 12 (twelve) hours as needed for anxiety for up to 30 days. diazePAM 2020-09- No [id number] 10mg Q12H Take 1 [facility] ([facility]) 10 10-15 tablet (10 s t MG tablet 00:00: 05:59 mg total) [facility] 00 :00 by mouth l every 12 (twelve) hours as needed for anxiety for up to 30 days. diazePAM 2020-09- No [id number] 10mg Q12H Take 1 [facility] ([facility]IUM) [...] as needed for anxiety. diazePAM 2020-09- No [id number] 10mg Q12H Take 1 [facility] ([facility]) 10 09-09 12-05 tablet (10 s t MG tablet 00:00: 05:59 mg total) [facility] 00 :00 by mouth l every 12 (twelve) hours as needed for anxiety for up to 30 days. diazePAM 2020-09- No [id number] 10mg Q12H Take 1 [facility] ([facility]) 10 09-09 12-05 tablet (10 s t MG tablet 00:00: 05:59 mg total) [facility] 00 :00 by mouth l every 12 (twelve) hours as needed for anxiety for up to 30 days. diazePAM 2020-09- No [id number] 10mg Q12H Take 1 [facility] ([facility]) 10 09-09 12-05 tablet (10 s t MG tablet 00:00: 05:59 mg total) [facility] 00 :00 by mouth l every 12 (twelve) hours as needed for anxiety for up to 30 days. diazePAM 2020-09- No [id number] 10mg Q12H Take 1 [facility] ([facility]) 10 09-09 12-05 tablet (10 s t MG tablet 00:00: 05:59 mg total) [facility] 00 :00 by mouth l every 12 (twelve) hours as needed for anxiety for up to 30 days. azithromyci 2020-09- No [id number] 250mg QD Take 1 [facility] (Zithromax 00:00: 00:00 (250 mg [facility] Z-Ok) 250 00 :00 total) by l MG tablet mouth daily. Take 2 tablets the first day, then 1 tablet daily for 4 days. pantoprazol Yes [id number] 40mg Take 1 [facility] ([facility]ON[facility]) 00:00: mouth [place] 40 mg EC 00 daily. Medical tablet Branch dicyclomine Yes [id number] 20mg Take 1 [facility] 20 mg 4-18 tablet by [facility] tablet 00:00: mouth [place] 00 every 6 Medical (six) Branch hours as needed for Abdominal pain. ondansetron 2020-0 Yes [id number] 4mg Take 1 [facility] (ZOFRAN) 4 4-18 tablet by [facility] mg tablet 00:00: mouth [place] 00 every 8 Medical (eight) Branch hours as needed for Nausea and Vomiting (N/V). pantoprazol 2020-0 Yes [id number] 40mg Take 1 [facility] 4-18 tablet by [facility] ([facility]ONIX) 00:00: mouth [place] 40 mg EC 00 daily. Medical tablet Branch dicyclomine 2020-0 Yes [id number] 20mg Take 1 [facility] 20 mg 4-18 tablet by [facility] tablet 00:00: mouth [place] 00 every 6 Medical (six) Branch hours as needed for Abdominal pain. ondansetron 2020-0 Yes [id number] 4mg Take 1 [facility] (ZOFRAN) 4 4-18 tablet by [facility] mg tablet 00:00: mouth [place] 00 every 8 Medical (eight) Branch hours as needed for Nausea and Vomiting (N/V). pantoprazol 2020-0 Yes [id number] 40mg Take 1 [facility] 4-18 tablet by [facility] ([facility]ONIX) 00:00: mouth [place] 40 mg EC 00 daily. Medical tablet Branch dicyclomine 2020-0 Yes [id number] 20mg Take 1 [facility] 20 mg 4-18 tablet by [facility] tablet 00:00: mouth [place] 00 every 6 Medical (six) Branch hours as needed for Abdominal pain. ondansetron 2020-0 Yes [id number] 4mg Take 1 [facility] (ZOFRAN) 4 4-18 tablet by [facility] mg tablet 00:00: mouth [place] 00 every 8 Medical (eight) Branch hours as needed for Nausea and Vomiting (N/V). pantoprazol 2020-0 Yes [id number] 40mg Take 1 [facility] 4-18 tablet by [facility] (PROTONIX) 00:00: mouth [place] 40 mg EC 00 daily. Medical tablet Branch dicyclomine 2020-0 Yes [id number] 20mg Take 1 [facility] 20 mg 4-18 tablet by [facility] tablet 00:00: mouth [place] 00 every 6 Medical (six) Branch hours as needed for Abdominal pain. ondansetron 2020-0 Yes [id number] 4mg Take 1 [facility] (ZOFRAN) 4 4-18 tablet by [facility] mg tablet 00:00: mouth [place] 00 every 8 Medical (eight) Branch hours as needed for Nausea and Vomiting (N/V). pantoprazol 2020-0 Yes [id number] 40mg Take 1 [facility] 4-18 tablet by [facility] ([facility]ONIX) 00:00: mouth [place] 40 mg EC 00 daily. Medical tablet Branch dicyclomine 2020-0 Yes [id number] 20mg Take 1 [facility] 20 mg 4-18 tablet by [facility] tablet 00:00: mouth [place] 00 every 6 Medical (six) Branch hours as needed for Abdominal pain. ondansetron 2020-0 Yes [id number] 4mg Take 1 [facility] (ZOFRAN) 4 4-18 tablet by [facility] mg tablet 00:00: mouth [place] 00 every 8 Medical (eight) Branch hours as needed for Nausea and Vomiting (N/V). pantoprazol 2020-0 Yes [id number] 40mg Take 1 [facility] 4-18 tablet by [facility] (PROTONIX) 00:00: mouth [place] 40 mg EC 00 daily. Medical tablet Branch dicyclomine 2020-0 Yes [id number] 20mg Take 1 [facility] 20 mg 4-18 tablet by [facility] tablet 00:00: mouth [place] 00 every 6 Medical (six) Branch hours as needed for Abdominal pain. ondansetron 2020-0 Yes [id number] 4mg Take 1 [facility] (ZOFRAN) 4 4-18 tablet by [facility] mg tablet 00:00: mouth [place] 00 every 8 Medical (eight) Branch hours as needed for Nausea and Vomiting (N/V). pantoprazol 2020-0 Yes [id number] 40mg Take 1 [facility] 4-18 tablet by [facility] ([facility]ONIX) 00:00: mouth [place] 40 mg EC 00 daily. Medical tablet Branch dicyclomine 2020-0 Yes [id number] 20mg Take 1 [facility] 20 mg 4-18 tablet by [facility] tablet 00:00: mouth [place] 00 every 6 Medical (six) Branch hours as needed for Abdominal pain. ondansetron 2020-0 Yes [id number] 4mg Take 1 [facility] (ZOFRAN) 4 4-18 tablet by [facility] mg tablet 00:00: mouth [place] 00 every 8 Medical (eight) Branch hours as needed for Nausea and Vomiting (N/V). pantoprazol 2020-0 Yes [id number] 40mg Take 1 [facility] 4-18 tablet by [facility] ([facility]ONIX) 00:00: mouth [place] 40 mg EC 00 daily. Medical tablet Branch dicyclomine 2020-0 Yes [id number] 20mg Take 1 [facility] 20 mg 4-18 tablet by [facility] tablet 00:00: mouth [place] 00 every 6 Medical (six) Branch hours as needed for Abdominal pain. ondansetron 2020-0 Yes [id number] 4mg Take 1 [facility] (ZOFRAN) 4 4-18 tablet by [facility] mg tablet 00:00: mouth [place] 00 every 8 Medical (eight) Branch hours as needed for Nausea and Vomiting (N/V). pantoprazol 2020-0 Yes [id number] 40mg Take 1 [facility] 4-18 tablet by [facility] ([facility]ONIX) 00:00: mouth [place] 40 mg EC 00 daily. Medical tablet Branch dicyclomine 2020-0 Yes [id number] 20mg Take 1 [facility] 20 mg 4-18 tablet by [facility] tablet 00:00: mouth [place] 00 every 6 Medical (six) Branch hours as needed for Abdominal pain. ondansetron 2020-0 Yes [id number] 4mg Take 1 [facility] (ZOFRAN) 4 4-18 tablet by [facility] mg tablet 00:00: mouth [place] 00 every 8 Medical (eight) Branch hours as needed for Nausea and Vomiting (N/V). pantoprazol 2020-0 Yes [id number] 40mg Take 1 [facility] 4-18 tablet by [facility] ([facility]ON[facility]) 00:00: mouth [place] 40 mg EC 00 daily. Medical tablet Branch dicyclomine 0 Yes [id number] 20mg Take 1 [facility] 20 mg 4-18 tablet by [facility] tablet 00:00: mouth [place] 00 every 6 Medical (six) Branch hours as needed for Abdominal pain. ondansetron 2020-0 Yes [id number] 4mg Take 1 [facility] (ZOFRAN) 4 4-18 tablet by [facility] mg tablet 00:00: mouth [place] 00 every 8 Medical (eight) Branch hours as needed for Nausea and Vomiting (N/V). pantoprazol 2020-0 Yes [id number] 40mg Take 1 [facility] 4-18 tablet by [facility] ([facility]ONIX) 00:00: mouth [place] 40 mg EC 00 daily. Medical tablet Branch dicyclomine 2020-0 Yes [id number] 20mg Take 1 [facility] 20 mg 4-18 tablet by [facility] tablet 00:00: mouth [place] 00 every 6 Medical (six) Branch hours as needed for Abdominal pain. ondansetron 2020-0 Yes [id number] 4mg Take 1 [facility] (ZOFRAN) 4 4-18 tablet by [facility] mg tablet 00:00: mouth [place] 00 every 8 Medical (eight) Branch hours as needed for Nausea and Vomiting (N/V). pantoprazol 2020-0 Yes [id number] 40mg Take 1 [facility] 4-18 tablet by [facility] ([facility]ONIX) 00:00: mouth [place] 40 mg EC 00 daily. Medical tablet Branch dicyclomine 0 Yes [id number] 20mg Take 1 [facility] 20 mg 4-18 tablet by [facility] tablet 00:00: mouth [place] 00 every 6 Medical (six) Branch hours as needed for Abdominal pain. ondansetron 2020-0 Yes [id number] 4mg Take 1 [facility] (ZOFRAN) 4 4-18 tablet by [facility] mg tablet 00:00: mouth [place] 00 every 8 Medical (eight) Branch hours as needed for Nausea and Vomiting (N/V). pantoprazol 2020-0 Yes [id number] 40mg Take 1 [facility] 4-18 tablet by [facility] ([facility]ONIX) 00:00: mouth [place] 40 mg EC 00 daily. Medical tablet Branch dicyclomine 2020-0 Yes [id number] 20mg Take 1 [facility] 20 mg 4-18 tablet by [facility] tablet 00:00: mouth [place] 00 every 6 Medical (six) Branch hours as needed for Abdominal pain. ondansetron 2020-0 Yes [id number] 4mg Take 1 [facility] (ZOFRAN) 4 4-18 tablet by [facility] mg tablet 00:00: mouth [place] 00 every 8 Medical (eight) Branch hours as needed for Nausea and Vomiting (N/V). pantoprazol 2020-0 Yes [id number] 40mg Take 1 [facility] 4-18 tablet by [facility] ([facility]ONIX) 00:00: mouth [place] 40 mg EC 00 daily. Medical tablet Branch dicyclomine 2020-0 Yes [id number] 20mg Take 1 [facility] 20 mg 4-18 tablet by [facility] tablet 00:00: mouth [place] 00 every 6 Medical (six) Branch hours as needed for Abdominal pain. ondansetron 2020-0 Yes [id number] 4mg Take 1 [facility] (ZOFRAN) 4 4-18 tablet by [facility] mg tablet 00:00: mouth [place] 00 every 8 Medical (eight) Branch hours as needed for Nausea and Vomiting (N/V). pantoprazol 2020-0 Yes [id number] 40mg Take 1 [facility] 4-18 tablet by [facility] ([facility]ONIX) 00:00: mouth [place] 40 mg EC 00 daily. Medical tablet Branch dicyclomine 2020-0 Yes [id number] 20mg Take 1 [facility] 20 mg 4-18 tablet by [facility] tablet 00:00: mouth [place] 00 every 6 Medical (six) Branch hours as needed for Abdominal pain. ondansetron 2020-0 Yes [id number] 4mg Take 1 [facility] (ZOFRAN) 4 4-18 tablet by [facility] mg tablet 00:00: mouth [place] 00 every 8 Medical (eight) Branch hours as needed for Nausea and Vomiting (N/V). pantoprazol 2020-0 Yes [id number] 40mg Take 1 [facility] 4-18 tablet by [facility] (PROTONIX) 00:00: mouth [place] 40 mg EC 00 daily. Medical tablet Branch dicyclomine 2020-0 Yes [id number] 20mg Take 1 [facility] 20 mg 4-18 tablet by [facility] tablet 00:00: mouth [place] 00 every 6 Medical (six) Branch hours as needed for Abdominal pain. ondansetron 2020-0 Yes [id number] 4mg Take 1 [facility] (ZOFRAN) 4 4-18 tablet by [facility] mg tablet 00:00: mouth [place] 00 every 8 Medical (eight) Branch hours as needed for Nausea and Vomiting (N/V). pantoprazol 2020-0 Yes [id number] 40mg Take 1 [facility] 4-18 tablet by [facility] ([facility]ONIX) 00:00: mouth [place] 40 mg EC 00 daily. Medical tablet Branch dicyclomine 2020-0 Yes [id number] 20mg Take 1 [facility] 20 mg 4-18 tablet by [facility] tablet 00:00: mouth [place] 00 every 6 Medical (six) Branch hours as needed for Abdominal pain. ondansetron 2020-0 Yes [id number] 4mg Take 1 [facility] (ZOFRAN) 4 4-18 tablet by [facility] mg tablet 00:00: mouth [place] 00 every 8 Medical (eight) Branch hours as needed for Nausea and Vomiting (N/V). pantoprazol 2020-0 Yes [id number] 40mg Take 1 [facility] 4-18 tablet by [facility] (PROTONIX) 00:00: mouth [place] 40 mg EC 00 daily. Medical tablet Branch dicyclomine 2020-0 Yes [id number] 20mg Take 1 [facility] 20 mg 4-18 tablet by [facility] tablet 00:00: mouth [place] 00 every 6 Medical (six) Branch hours as needed for Abdominal pain. ondansetron 2020-0 Yes [id number] 4mg Take 1 [facility] (ZOFRAN) 4 4-18 tablet by [facility] mg tablet 00:00: mouth [place] 00 every 8 Medical (eight) Branch hours as needed for Nausea and Vomiting (N/V). pantoprazol 2020-0 Yes [id number] 40mg Take 1 [facility] 4-18 tablet by [facility] ([facility]ONIX) 00:00: mouth [place] 40 mg EC 00 daily. Medical tablet Branch dicyclomine 2020-0 Yes [id number] 20mg Take 1 [facility] 20 mg 4-18 tablet by [facility] tablet 00:00: mouth [place] 00 every 6 Medical (six) Branch hours as needed for Abdominal pain. ondansetron 2020-0 Yes [id number] 4mg Take 1 [facility] (ZOFRAN) 4 4-18 tablet by [facility] mg tablet 00:00: mouth [place] 00 every 8 Medical (eight) Branch hours as needed for Nausea and Vomiting (N/V). pantoprazol 2020-0 Yes [id number] 40mg Take 1 [facility] 4-18 tablet by [facility] ([facility]ONIX) 00:00: mouth [place] 40 mg EC 00 daily. Medical tablet Branch dicyclomine 2020-0 Yes [id number] 20mg Take 1 [facility] 20 mg 4-18 tablet by [facility] tablet 00:00: mouth [place] 00 every 6 Medical (six) Branch hours as needed for Abdominal pain. ondansetron 2020-0 Yes [id number] 4mg Take 1 [facility] (ZOFRAN) 4 4-18 tablet by [facility] mg tablet 00:00: mouth [place] 00 every 8 Medical (eight) Branch hours as needed for Nausea and Vomiting (N/V). pantoprazol 2020-0 Yes [id number] 40mg Take 1 [facility] 4-18 tablet by [facility] (PROTONIX) 00:00: mouth [place] 40 mg EC 00 daily. Medical tablet Branch dicyclomine 2020-0 Yes [id number] 20mg Take 1 [facility] 20 mg 4-18 tablet by [facility] tablet 00:00: mouth [place] 00 every 6 Medical (six) Branch hours as needed for Abdominal pain. ondansetron 2020-0 Yes [id number] 4mg Take 1 [facility] (ZOFRAN) 4 4-18 tablet by [facility] mg tablet 00:00: mouth [place] 00 every 8 Medical (eight) Branch hours as needed for Nausea and Vomiting (N/V). pantoprazol 2020-0 Yes [id number] 40mg Take 1 [facility] 4-18 tablet by [facility] ([facility]ONIX) 00:00: mouth [place] 40 mg EC 00 daily. Medical tablet Branch dicyclomine 2020-0 Yes [id number] 20mg Take 1 [facility] 20 mg 4-18 tablet by [facility] tablet 00:00: mouth [place] 00 every 6 Medical (six) Branch hours as needed for Abdominal pain. ondansetron 2020-0 Yes [id number] 4mg Take 1 [facility] (ZOFRAN) 4 4-18 tablet by [facility] mg tablet 00:00: mouth [place] 00 every 8 Medical (eight) Branch hours as needed for Nausea and Vomiting (N/V). pantoprazol 2020-0 Yes [id number] 40mg Take 1 [facility] e 4-18 tablet by [facility] (PROTONIX) 00:00: mouth [place] 40 mg EC 00 daily. Medical tablet Branch dicyclomine 2020-0 Yes [id number] 20mg Take 1 [facility] 20 mg 4-18 tablet by [facility] tablet 00:00: mouth [place] 00 every 6 Medical (six) Branch hours as needed for Abdominal pain. ondansetron 2020-0 Yes [id number] 4mg Take 1 [facility] (ZOFRAN) 4 4-18 tablet by [facility] mg tablet 00:00: mouth [place] 00 every 8 Medical (eight) Branch hours as needed for Nausea and Vomiting (N/V). pantoprazol 2020-0 Yes [id number] 40mg Take 1 [facility] e 4-18 tablet by [facility] (PROTONIX) 00:00: mouth [place] 40 mg EC 00 daily. Medical tablet Branch dicyclomine 2020-0 Yes [id number] 20mg Take 1 [facility] 20 mg 4-18 tablet by [facility] tablet 00:00: mouth [place] 00 every 6 Medical (six) Branch hours as needed for Abdominal pain. ondansetron 2020-0 Yes [id number] 4mg Take 1 [facility] (ZOFRAN) 4 4-18 tablet by [facility] mg tablet 00:00: mouth [place] 00 every 8 Medical (eight) Branch hours as needed for Nausea and Vomiting (N/V). pantoprazol 2020-0 Yes [id number] 40mg Take 1 [facility] e 4-18 tablet by [facility] (PROTONIX) 00:00: mouth [place] 40 mg EC 00 daily. Medical tablet Branch dicyclomine 2020-0 Yes [id number] 20mg Take 1 [facility] 20 mg 4-18 tablet by [facility] tablet 00:00: mouth [place] 00 every 6 Medical (six) Branch hours as needed for Abdominal pain. pantoprazol 2020-0 Yes [id number] 40mg Take 1 [facility] e 4-18 tablet by [facility] (PROTONIX) 00:00: mouth [place] 40 mg EC 00 daily. Medical tablet Branch dicyclomine 2020-0 Yes [id number] 20mg Take 1 [facility] 20 mg 4-18 tablet by [facility] tablet 00:00: mouth [place] 00 every 6 Medical (six) Branch hours as needed for Abdominal pain. pantoprazol 2020-0 Yes [id number] 40mg Take 1 [facility] 4-18 tablet by [facility] (PROTONIX) 00:00: mouth [place] 40 mg EC 00 daily. Medical tablet Branch dicyclomine 2020-0 Yes [id number] 20mg Take 1 [facility] 20 mg 4-18 tablet by [facility] tablet 00:00: mouth [place] 00 every 6 Medical (six) Branch hours as needed for Abdominal pain. pantoprazol 2020-0 Yes [id number] 40mg Take 1 [facility] e 4-18 tablet by [facility] (PROTONIX) 00:00: mouth [place] 40 mg EC 00 daily. Medical tablet Branch dicyclomine 2020-0 Yes [id number] 20mg Take 1 [facility] 20 mg 4-18 tablet by [facility] tablet 00:00: mouth [place] 00 every 6 Medical (six) Branch hours as needed for Abdominal pain. pantoprazol 2020-0 Yes [id number] 40mg Take 1 [facility] 4-18 tablet by [facility] (PROTONIX) 00:00: mouth [place] 40 mg EC 00 daily. Medical tablet Branch dicyclomine 2020-0 Yes [id number] 20mg Take 1 [facility] 20 mg 4-18 tablet by [facility] tablet 00:00: mouth [place] 00 every 6 Medical (six) Branch hours as needed for Abdominal pain. pantoprazol 2020-0 Yes [id number] 40mg Take 1 [facility] 4-18 tablet by [facility] (PROTONIX) 00:00: mouth [place] 40 mg EC 00 daily. Medical tablet Branch dicyclomine 2020-0 Yes [id number] 20mg Take 1 [facility] 20 mg 4-18 tablet by [facility] tablet 00:00: mouth [place] 00 every 6 Medical (six) Branch hours as needed for Abdominal pain. pantoprazol 2020-0 Yes [id number] 40mg Take 1 [facility] e 4-18 tablet by [facility] (PROTONIX) 00:00: mouth [place] 40 mg EC 00 daily. Medical tablet Branch dicyclomine 2020-0 Yes [id number] 20mg Take 1 [facility] 20 mg 4-18 tablet by [facility] tablet 00:00: mouth [place] 00 every 6 Medical (six) Branch hours as needed for Abdominal pain. pantoprazol 2020-0 Yes [id number] 40mg Take 1 [facility] 4-18 tablet by [facility] ([facility]ONIX) 00:00: mouth [place] 40 mg EC 00 daily. Medical tablet Branch dicyclomine 2020-0 Yes [id number] 20mg Take 1 [facility] 20 mg 4-18 tablet by [facility] tablet 00:00: mouth [place] 00 every 6 Medical (six) Branch hours as needed for Abdominal pain. pantoprazol 2020-0 Yes [id number] 40mg Take 1 [facility] e 4-18 tablet by [facility] (PROTONIX) 00:00: mouth [place] 40 mg EC 00 daily. Medical tablet Branch dicyclomine 2020-0 Yes [id number] 20mg Take 1 [facility] 20 mg 4-18 tablet by [facility] tablet 00:00: mouth [place] 00 every 6 Medical (six) Branch hours as needed for Abdominal pain. pantoprazol 2020-0 Yes [id number] 40mg Take 1 [facility] e 4-18 tablet by [facility] (PROTONIX) 00:00: mouth [place] 40 mg EC 00 daily. Medical tablet Branch dicyclomine 2020-0 Yes [id number] 20mg Take 1 [facility] 20 mg 4-18 tablet by [facility] tablet 00:00: mouth [place] 00 every 6 Medical (six) Branch hours as needed for Abdominal pain. pantoprazol 2020-0 Yes [id number] 40mg Take 1 [facility] e 4-18 tablet by [facility] ([facility]ONIX) 00:00: mouth [place] 40 mg EC 00 daily. Medical tablet Branch dicyclomine 2020-0 Yes [id number] 20mg Take 1 [facility] 20 mg 4-18 tablet by [facility] tablet 00:00: mouth [place] 00 every 6 Medical (six) Branch hours as needed for Abdominal pain. pantoprazol 2020-0 Yes [id number] 40mg Take 1 [facility] e 4-18 tablet by [facility] (PROTONIX) 00:00: mouth [place] 40 mg EC 00 daily. Medical tablet Branch dicyclomine 2020-0 Yes [id number] 20mg Take 1 [facility] 20 mg 4-18 tablet by [facility] tablet 00:00: mouth [place] 00 every 6 Medical (six) Branch hours as needed for Abdominal pain. pantoprazol 2020-0 Yes [id number] 40mg Take 1 [facility] e 4-18 tablet by [facility] (PROTONIX) 00:00: mouth [place] 40 mg EC 00 daily. Medical tablet Branch dicyclomine 2020-0 Yes [id number] 20mg Take 1 [facility] 20 mg 4-18 tablet by [facility] tablet 00:00: mouth [place] 00 every 6 Medical (six) Branch hours as needed for Abdominal pain. pantoprazol 2020-0 Yes [id number] 40mg Take 1 [facility] 4-18 tablet by [facility] (PROTONIX) 00:00: mouth [place] 40 mg EC 00 daily. Medical tablet Branch dicyclomine 2020-0 Yes [id number] 20mg Take 1 [facility] 20 mg 4-18 tablet by [facility] tablet 00:00: mouth [place] 00 every 6 Medical (six) Branch hours as needed for Abdominal pain. pantoprazol 2020-0 Yes [id number] 40mg Take 1 [facility] e 4-18 tablet by [facility] (PROTONIX) 00:00: mouth [place] 40 mg EC 00 daily. Medical tablet Branch dicyclomine 2020-0 Yes [id number] 20mg Take 1 [facility] 20 mg 4-18 tablet by [facility] tablet 00:00: mouth [place] 00 every 6 Medical (six) Branch hours as needed for Abdominal pain. pantoprazol 2020-0 Yes [id number] 40mg Take 1 [facility] 4-18 tablet by [facility] ([facility]ONIX) 00:00: mouth [place] 40 mg EC 00 daily. Medical tablet Branch dicyclomine 2020-0 Yes [id number] 20mg Take 1 [facility] 20 mg 4-18 tablet by [facility] tablet 00:00: mouth [place] 00 every 6 Medical (six) Branch hours as needed for Abdominal pain. pantoprazol 2020-0 Yes [id number] 40mg Take 1 [facility] e 4-18 tablet by [facility] (PROTONIX) 00:00: mouth [place] 40 mg EC 00 daily. Medical tablet Branch dicyclomine 2020-0 Yes [id number] 20mg Take 1 [facility] 20 mg 4-18 tablet by [facility] tablet 00:00: mouth [place] 00 every 6 Medical (six) Branch hours as needed for Abdominal pain. pantoprazol 2020-0 Yes [id number] 40mg Take 1 [facility] e 4-18 tablet by [facility] (PROTONIX) 00:00: mouth [place] 40 mg EC 00 daily. Medical tablet Branch dicyclomine 2020-0 Yes [id number] 20mg Take 1 [facility] 20 mg 4-18 tablet by [facility] tablet 00:00: mouth [place] 00 every 6 Medical (six) Branch hours as needed for Abdominal pain. pantoprazol 2020-0 Yes [id number] 40mg Take 1 [facility] e 4-18 tablet by [facility] (PROTONIX) 00:00: mouth [place] 40 mg EC 00 daily. Medical tablet Branch dicyclomine 2020-0 Yes [id number] 20mg Take 1 [facility] 20 mg 4-18 tablet by [facility] tablet 00:00: mouth [place] 00 every 6 Medical (six) Branch hours as needed for Abdominal pain. pantoprazol 2020-0 Yes [id number] 40mg Take 1 [facility] e 4-18 tablet by [facility] (PROTONIX) 00:00: mouth [place] 40 mg EC 00 daily. Medical tablet Branch dicyclomine 2020-0 Yes [id number] 20mg Take 1 [facility] 20 mg 4-18 tablet by [facility] tablet 00:00: mouth [place] 00 every 6 Medical (six) Branch hours as needed for Abdominal pain. pantoprazol 2020-0 Yes [id number] 40mg Take 1 [facility] e 4-18 tablet by [facility] (PROTONIX) 00:00: mouth [place] 40 mg EC 00 daily. Medical tablet Branch dicyclomine 2020-0 Yes [id number] 20mg Take 1 [facility] 20 mg 4-18 tablet by [facility] tablet 00:00: mouth [place] 00 every 6 Medical (six) Branch hours as needed for Abdominal pain. pantoprazol 2020-0 Yes [id number] 40mg Take 1 [facility] e 4-18 tablet by [facility] (PROTONIX) 00:00: mouth [place] 40 mg EC 00 daily. Medical tablet Branch dicyclomine 2020-0 Yes [id number] 20mg Take 1 [facility] 20 mg 4-18 tablet by [facility] tablet 00:00: mouth [place] 00 every 6 Medical (six) Branch hours as needed for Abdominal pain. pantoprazol 2020-0 Yes [id number] 40mg Take 1 [facility] e 4-18 tablet by [facility] (PROTONIX) 00:00: mouth [place] 40 mg EC 00 daily. Medical tablet Branch dicyclomine 2020-0 Yes [id number] 20mg Take 1 [facility] 20 mg 4-18 tablet by [facility] tablet 00:00: mouth [place] 00 every 6 Medical (six) Branch hours as needed for Abdominal pain. pantoprazol 2020-0 Yes [id number] 40mg Take 1 [facility] e 4-18 tablet by [facility] (PROTONIX) 00:00: mouth [place] 40 mg EC 00 daily. Medical tablet Branch pantoprazol 2020-0 Yes [id number] 40mg Take 1 [facility] e 4-18 tablet by [facility] (PROTONIX) 00:00: mouth [place] 40 mg EC 00 daily. Medical tablet Branch dicyclomine 2020-0 Yes [id number] 20mg Take 1 [facility] 20 mg 4-18 tablet by [facility] tablet 00:00: mouth [place] 00 every 6 Medical (six) Branch hours as needed for Abdominal pain. dicyclomine 2020-0 Yes [id number] 20mg Take 1 [facility] 20 mg 4-18 tablet by [facility] tablet 00:00: mouth [place] 00 every 6 Medical (six) Branch hours as needed for Abdominal pain. ondansetron 2020-0 Yes [id number] 4mg Take 1 [facility] (ZOFRAN) 4 4-18 tablet by [facility] mg tablet 00:00: mouth [place] 00 every 8 Medical (eight) Branch hours as needed for Nausea and Vomiting (N/V). pantoprazol 2020-0 Yes [id number] 40mg Take 1 [facility] e 4-18 tablet by [facility] (PROTONIX) 00:00: mouth [place] 40 mg EC 00 daily. Medical tablet Branch dicyclomine 2020-0 Yes [id number] 20mg Take 1 [facility] 20 mg 4-18 tablet by [facility] tablet 00:00: mouth [place] 00 every 6 Medical (six) Branch hours as needed for Abdominal pain. ondansetron 2020-0 Yes [id number] 4mg Take 1 [facility] (ZOFRAN) 4 4-18 tablet by [facility] mg tablet 00:00: mouth [place] 00 every 8 Medical (eight) Branch hours as needed for Nausea and Vomiting (N/V). pantoprazol 2020-0 Yes [id number] 40mg Take 1 [facility] e 4-18 tablet by [facility] (PROTONIX) 00:00: mouth [place] 40 mg EC 00 daily. Medical tablet Branch dicyclomine 2020-0 Yes [id number] 20mg Take 1 [facility] 20 mg 4-18 tablet by [facility] tablet 00:00: mouth [place] 00 every 6 Medical (six) Branch hours as needed for Abdominal pain. ondansetron 2020-0 Yes [id number] 4mg Take 1 [facility] (ZOFRAN) 4 4-18 tablet by [facility]y of mg tablet 00:00: mouth [place] 00 every 8 Medical (eight) Branch hours as needed for Nausea and Vomiting (N/V). pantoprazol 2020-0 Yes [id number] 40mg Take 1 [facility] 4-18 tablet by [facility] of (PROTONIX) 00:00: mouth [place] 40 mg EC 00 daily. Medical tablet Branch dicyclomine 2020-0 Yes [id number] 20mg Take 1 [facility] 20 mg 4-18 tablet by [facility] of tablet 00:00: mouth [place] 00 every 6 Medical (six) Branch hours as needed for Abdominal pain. ondansetron 2020-0 Yes [id number] 4mg Take 1 [facility] (ZOFRAN) 4 4-18 tablet by [facility] of mg tablet 00:00: mouth [place] 00 every 8 Medical (eight) Branch hours as needed for Nausea and Vomiting (N/V). pantoprazol 2020-0 Yes [id number] 40mg Take 1 [facility] e 4-18 tablet by [facility] of (PROTONIX) 00:00: mouth [place] 40 mg EC 00 daily. Medical tablet Branch dicyclomine 2020-0 Yes [id number] 20mg Take 1 [facility] 20 mg 4-18 tablet by [facility] of tablet 00:00: mouth [place] 00 every 6 Medical (six) Branch hours as needed for Abdominal pain. ondansetron 2020-0 Yes [id number] 4mg Take 1 [facility] (ZOFRAN) 4 4-18 tablet by [facility] of mg tablet 00:00: mouth [place] 00 every 8 Medical (eight) Branch hours as needed for Nausea and Vomiting (N/V). pantoprazol 2020-0 Yes [id number] 40mg Take 1 [facility] e 4-18 tablet by [facility] of (PROTONIX) 00:00: mouth [place] 40 mg EC 00 daily. Medical tablet Branch dicyclomine 2020-0 Yes [id number] 20mg Take 1 [facility] 20 mg 4-18 tablet by [facility] of tablet 00:00: mouth [place] 00 every 6 Medical (six) Branch hours as needed for Abdominal pain. ondansetron 2020-0 Yes [id number] 4mg Take 1 [facility] (ZOFRAN) 4 4-18 tablet by [facility] of mg tablet 00:00: mouth [place] 00 every 8 Medical (eight) Branch hours as needed for Nausea and Vomiting (N/V). pantoprazol 2020-0 Yes [id number] 40mg Take 1 [facility] e 4-18 tablet by [facility] of (PROTONIX) 00:00: mouth [place] 40 mg EC 00 daily. Medical tablet Branch dicyclomine 2020-0 Yes [id number] 20mg Take 1 [facility] 20 mg 4-18 tablet by [facility] of tablet 00:00: mouth [place] 00 every 6 Medical (six) Branch hours as needed for Abdominal pain. ondansetron 2020-0 Yes [id number] 4mg Take 1 [facility] (ZOFRAN) 4 4-18 tablet by [facility] of mg tablet 00:00: mouth [place] 00 every 8 Medical (eight) Branch hours as needed for Nausea and Vomiting (N/V). pantoprazol 2020-0 Yes [id number] 40mg Take 1 [facility] e 4-18 tablet by [facility] of (PROTONIX) 00:00: mouth [place] 40 mg EC 00 daily. Medical tablet Branch dicyclomine 2020-0 Yes [id number] 20mg Take 1 [facility] 20 mg 4-18 tablet by [facility] of tablet 00:00: mouth [place] 00 every 6 Medical (six) Branch hours as needed for Abdominal pain. ondansetron 2020-0 Yes [id number] 4mg Take 1 [facility] (ZOFRAN) 4 4-18 tablet by [facility] of mg tablet 00:00: mouth [place] 00 every 8 Medical (eight) Branch hours as needed for Nausea and Vomiting (N/V). pantoprazol 2020-0 Yes [id number] 40mg Take 1 [facility] e 4-18 tablet by [facility] of (PROTONIX) 00:00: mouth [place] 40 mg EC 00 daily. Medical tablet Branch dicyclomine 2020-0 Yes [id number] 20mg Take 1 [facility] 20 mg 4-18 tablet by [facility] of tablet 00:00: mouth [place] 00 every 6 Medical (six) Branch hours as needed for Abdominal pain. ondansetron 2020-0 Yes [id number] 4mg Take 1 [facility] (ZOFRAN) 4 4-18 tablet by [facility] of mg tablet 00:00: mouth [place] 00 every 8 Medical (eight) Branch hours as needed for Nausea and Vomiting (N/V). pantoprazol 2020-0 Yes [id number] 40mg Take 1 [facility] e 4-18 tablet by [facility] of (PROTONIX) 00:00: mouth [place] 40 mg EC 00 daily. Medical tablet Branch dicyclomine 0 Yes [id number] 20mg Take 1 [facility] 20 mg 4-18 tablet by [facility] of tablet 00:00: mouth [place] 00 every 6 Medical (six) Branch hours as needed for Abdominal pain. ondansetron 2020-0 Yes [id number] 4mg Take 1 [facility] (ZOFRAN) 4 4-18 tablet by [facility] of mg tablet 00:00: mouth [place] 00 every 8 Medical (eight) Branch hours as needed for Nausea and Vomiting (N/V). pantoprazol 2020-0 Yes [id number] 40mg Take 1 [facility] e 4-18 tablet by [facility] of (PROTONIX) 00:00: mouth [place] 40 mg EC 00 daily. Medical tablet Branch dicyclomine 2020-0 Yes [id number] 20mg Take 1 [facility] 20 mg 4-18 tablet by [facility] of tablet 00:00: mouth [place] 00 every 6 Medical (six) Branch hours as needed for Abdominal pain. ondansetron 2020-0 Yes [id number] 4mg Take 1 [facility] (ZOFRAN) 4 4-18 tablet by [facility] of mg tablet 00:00: mouth [place] 00 every 8 Medical (eight) Branch hours as needed for Nausea and Vomiting (N/V). pantoprazol 2020-0 Yes [id number] 40mg Take 1 [facility] e 4-18 tablet by [facility] of (PROTONIX) 00:00: mouth [place] 40 mg EC 00 daily. Medical tablet Branch dicyclomine 0 Yes [id number] 20mg Take 1 [facility] 20 mg 4-18 tablet by [facility] of tablet 00:00: mouth [place] 00 every 6 Medical (six) Branch hours as needed for Abdominal pain. ondansetron 2020-0 Yes [id number] 4mg Take 1 [facility] (ZOFRAN) 4 4-18 tablet by [facility] of mg tablet 00:00: mouth [place] 00 every 8 Medical (eight) Branch hours as needed for Nausea and Vomiting (N/V). pantoprazol 2020-0 Yes [id number] 40mg Take 1 [facility] e 4-18 tablet by [facility] of (PROTONIX) 00:00: mouth [place] 40 mg EC 00 daily. Medical tablet Branch dicyclomine 2020-0 Yes [id number] 20mg Take 1 [facility] 20 mg 4-18 tablet by [facility] of tablet 00:00: mouth [place] 00 every 6 Medical (six) Branch hours as needed for Abdominal pain. ondansetron 2020-0 Yes [id number] 4mg Take 1 [facility] (ZOFRAN) 4 4-18 tablet by [facility] of mg tablet 00:00: mouth [place] 00 every 8 Medical (eight) Branch hours as needed for Nausea and Vomiting (N/V). pantoprazol 2020-0 Yes [id number] 40mg Take 1 [facility] e 4-18 tablet by [facility] of (PROTONIX) 00:00: mouth [place] 40 mg EC 00 daily. Medical tablet Branch dicyclomine 2020-0 Yes [id number] 20mg Take 1 [facility] 20 mg 4-18 tablet by [facility] of tablet 00:00: mouth [place] 00 every 6 Medical (six) Branch hours as needed for Abdominal pain. ondansetron 2020-0 Yes [id number] 4mg Take 1 [facility] (ZOFRAN) 4 4-18 tablet by [facility] of mg tablet 00:00: mouth [place] 00 every 8 Medical (eight) Branch hours as needed for Nausea and Vomiting (N/V). pantoprazol 2020-0 Yes [id number] 40mg Take 1 [facility] e 4-18 tablet by [facility] of (PROTONIX) 00:00: mouth [place] 40 mg EC 00 daily. Medical tablet Branch dicyclomine 2020-0 Yes [id number] 20mg Take 1 [facility] 20 mg 4-18 tablet by [facility] of tablet 00:00: mouth [place] 00 every 6 Medical (six) Branch hours as needed for Abdominal pain. ondansetron 2020-0 Yes [id number] 4mg Take 1 [facility] (ZOFRAN) 4 4-18 tablet by [facility] of mg tablet 00:00: mouth [place] 00 every 8 Medical (eight) Branch hours as needed for Nausea and Vomiting (N/V). pantoprazol 2020-0 Yes [id number] 40mg Take 1 [facility] e 4-18 tablet by [facility] of (PROTONIX) 00:00: mouth [place] 40 mg EC 00 daily. Medical tablet Branch dicyclomine 2020-0 Yes [id number] 20mg Take 1 [facility] 20 mg 4-18 tablet by [facility] of tablet 00:00: mouth [place] 00 every 6 Medical (six) Branch hours as needed for Abdominal pain. ondansetron 2020-0 Yes [id number] 4mg Take 1 [facility] (ZOFRAN) 4 4-18 tablet by [facility] of mg tablet 00:00: mouth [place] 00 every 8 Medical (eight) Branch hours as needed for Nausea and Vomiting (N/V). pantoprazol 2020-0 Yes [id number] 40mg Take 1 [facility] e 4-18 tablet by [facility] of (PROTONIX) 00:00: mouth [place] 40 mg EC 00 daily. Medical tablet Branch dicyclomine 2020-0 Yes [id number] 20mg Take 1 [facility] 20 mg 4-18 tablet by [facility] of tablet 00:00: mouth [place] 00 every 6 Medical (six) Branch hours as needed for Abdominal pain. ondansetron 2020-0 Yes [id number] 4mg Take 1 [facility] (ZOFRAN) 4 4-18 tablet by [facility] of mg tablet 00:00: mouth [place] 00 every 8 Medical (eight) Branch hours as needed for Nausea and Vomiting (N/V). pantoprazol 2020-0 Yes [id number] 40mg Take 1 [facility] e 4-18 tablet by [facility] of (PROTONIX) 00:00: mouth [place] 40 mg EC 00 daily. Medical tablet Branch dicyclomine 2020-0 Yes [id number] 20mg Take 1 [facility] 20 mg 4-18 tablet by [facility] of tablet 00:00: mouth [place] 00 every 6 Medical (six) Branch hours as needed for Abdominal pain. ondansetron 2020-0 Yes [id number] 4mg Take 1 [facility] (ZOFRAN) 4 4-18 tablet by [facility] of mg tablet 00:00: mouth [place] 00 every 8 Medical (eight) Branch hours as needed for Nausea and Vomiting (N/V). pantoprazol 2020-0 Yes [id number] 40mg Take 1 [facility] e 4-18 tablet by [facility] of (PROTONIX) 00:00: mouth [place] 40 mg EC 00 daily. Medical tablet Branch dicyclomine 2020-0 Yes [id number] 20mg Take 1 [facility] 20 mg 4-18 tablet by [facility] of tablet 00:00: mouth [place] 00 every 6 Medical (six) Branch hours as needed for Abdominal pain. ondansetron 2020-0 Yes [id number] 4mg Take 1 [facility] (ZOFRAN) 4 4-18 tablet by [facility] of mg tablet 00:00: mouth [place] 00 every 8 Medical (eight) Branch hours as needed for Nausea and Vomiting (N/V). pantoprazol 2020-0 Yes [id number] 40mg Take 1 [facility] e 4-18 tablet by [facility] of (PROTONIX) 00:00: mouth [place] 40 mg EC 00 daily. Medical tablet Branch dicyclomine 2020-0 Yes [id number] 20mg Take 1 [facility] 20 mg 4-18 tablet by [facility] of tablet 00:00: mouth [place] 00 every 6 Medical (six) Branch hours as needed for Abdominal pain. ondansetron 2020-0 Yes [id number] 4mg Take 1 [facility] (ZOFRAN) 4 4-18 tablet by [facility] of mg tablet 00:00: mouth [place] 00 every 8 Medical (eight) Branch hours as needed for Nausea and Vomiting (N/V). pantoprazol 2020-0 Yes [id number] 40mg Take 1 [facility] e 4-18 tablet by [facility] of (PROTONIX) 00:00: mouth [place] 40 mg EC 00 daily. Medical tablet Branch dicyclomine 2020-0 Yes [id number] 20mg Take 1 [facility] 20 mg 4-18 tablet by [facility] of tablet 00:00: mouth [place] 00 every 6 Medical (six) Branch hours as needed for Abdominal pain. ondansetron 2020-0 Yes [id number] 4mg Take 1 [facility] (ZOFRAN) 4 4-18 tablet by [facility] of mg tablet 00:00: mouth [place] 00 every 8 Medical (eight) Branch hours as needed for Nausea and Vomiting (N/V). pantoprazol 2020-0 Yes [id number] 40mg Take 1 [facility] e 4-18 tablet by [facility] of (PROTONIX) 00:00: mouth [place] 40 mg EC 00 daily. Medical tablet Branch dicyclomine 2020-0 Yes [id number] 20mg Take 1 [facility] 20 mg 4-18 tablet by [facility] of tablet 00:00: mouth [place] 00 every 6 Medical (six) Branch hours as needed for Abdominal pain. ondansetron 2020-0 Yes [id number] 4mg Take 1 [facility] (ZOFRAN) 4 4-18 tablet by [facility] of mg tablet 00:00: mouth [place] 00 every 8 Medical (eight) Branch hours as needed for Nausea and Vomiting (N/V). pantoprazol 2020-0 Yes [id number] 40mg Take 1 [facility] e 4-18 tablet by [facility] of (PROTONIX) 00:00: mouth [place] 40 mg EC 00 daily. Medical tablet Branch dicyclomine 2020-0 Yes [id number] 20mg Take 1 [facility] 20 mg 4-18 tablet by [facility] of tablet 00:00: mouth [place] 00 every 6 Medical (six) Branch hours as needed for Abdominal pain. ondansetron 2020-0 Yes [id number] 4mg Take 1 [facility] (ZOFRAN) 4 4-18 tablet by [facility] of mg tablet 00:00: mouth [place] 00 every 8 Medical (eight) Branch hours as needed for Nausea and Vomiting (N/V). ondansetron 2022- No [id number] 4mg Take 1 [facility] (ZOFRAN) 4 4-18 06-27 tablet by [facility] of mg tablet 00:00: 00:00 mouth [place] 00 :00 every 8 Medical (eight) Branch hours as needed for Nausea and Vomiting (N/V). ondansetron 2022- No [id number] 4mg Take 1 [facility] (ZOFRAN) 4 4-18 [...] 00 DAILY UNTIL FINISHED. nystatin 2020-0 Yes [id number] Apply to [facility] 100,000 2-05 affected [facility] of unit/gram 00:00: area(s) 3 [facility] as ointment 00 (three) Medical times Branch daily. nystatin 2020-0 Yes [id number] Apply to [facility] 100,000 2-05 affected [facility] of unit/gram 00:00: area(s) 3 [facility] ointment 00 (three) Medical times Branch daily. nystatin 2020-0 Yes [id number] Apply to [facility] 100,000 2-05 affected [facility] of unit/gram 00:00: area(s) 3 [facility] ointment 00 (three) Medical times Branch daily. nystatin 2020-0 Yes [id number] Apply to [facility] 100,000 2-05 affected [facility]y of unit/gram 00:00: area(s) 3 [facility] ointment 00 (three) Medical times Branch daily. nystatin 2020-0 Yes [id number] Apply to [facility] 100,000 2-05 affected [facility]y of unit/gram 00:00: area(s) 3 [facility] ointment 00 (three) Medical times Branch daily. nystatin 2020-0 Yes [id number] Apply to [facility] 100,000 2-05 affected [facility]y of unit/gram 00:00: area(s) 3 [facility] ointment 00 (three) Medical times Branch daily. nystatin 2020-0 Yes [id number] Apply to [facility] 100,000 2-05 affected [facility]y of unit/gram 00:00: area(s) 3 [facility] ointment 00 (three) Medical times Branch daily. nystatin 2020-0 Yes [id number] Apply to [facility] 100,000 2-05 affected [facility]y of unit/gram 00:00: area(s) 3 [facility] ointment 00 (three) Medical times Branch daily. nystatin 2020-0 Yes [id number] Apply to [facility] 100,000 2-05 affected [facility] of unit/gram 00:00: area(s) 3 [facility] ointment 00 (three) Medical times Branch daily. nystatin 2020-0 Yes [id number] Apply to [facility] 100,000 2-05 affected [facility]y of unit/gram 00:00: area(s) 3 [facility] ointment 00 (three) Medical times Branch daily. nystatin 2020-0 Yes [id number] Apply to [facility] 100,000 2-05 affected [facility]y of unit/gram 00:00: area(s) 3 [facility] ointment 00 (three) Medical times Branch daily. nystatin 2020-0 Yes [id number] Apply to [facility] 100,000 2-05 affected [facility]y of unit/gram 00:00: area(s) 3 [facility] ointment 00 (three) Medical times Branch daily. nystatin 2020-0 Yes [id number] Apply to [facility] 100,000 2-05 affected [facility]y of unit/gram 00:00: area(s) 3 [facility] ointment 00 (three) Medical times Branch daily. nystatin 2020-0 Yes [id number] Apply to [facility] 100,000 2-05 affected [facility]y of unit/gram 00:00: area(s) 3 [facility] ointment 00 (three) Medical times Branch daily. nystatin 2020-0 Yes [id number] Apply to [facility] 100,000 2-05 affected [facility]y of unit/gram 00:00: area(s) 3 [facility] ointment 00 (three) Medical times Branch daily. nystatin 2020-0 Yes [id number] Apply to [facility] 100,000 2-05 affected [facility]y of unit/gram 00:00: area(s) 3 [facility] ointment 00 (three) Medical times Branch daily. nystatin 2020-0 Yes [id number] Apply to [facility] 100,000 2-05 affected [facility]y of unit/gram 00:00: area(s) 3 [facility] ointment 00 (three) Medical times Branch daily. nystatin 2020-0 Yes [id number] Apply to [facility] 100,000 2-05 affected [facility]y of unit/gram 00:00: area(s) 3 [facility] ointment 00 (three) Medical times Branch daily. nystatin 2020-0 Yes [id number] Apply to [facility] 100,000 2-05 affected [facility]y of unit/gram 00:00: area(s) 3 [facility] ointment 00 (three) Medical times Branch daily. nystatin 2020-0 Yes [id number] Apply to [facility] 100,000 2-05 affected [facility]y of unit/gram 00:00: area(s) 3 [facility] ointment 00 (three) Medical times Branch daily. nystatin 2020-0 Yes [id number] Apply to [facility] 100,000 2-05 affected [facility]y of unit/gram 00:00: area(s) 3 [facility] ointment 00 (three) Medical times Branch daily. nystatin 2020-0 Yes [id number] Apply to [facility] 100,000 2-05 affected [facility]y of unit/gram 00:00: area(s) 3 [facility] ointment 00 (three) Medical times Branch daily. nystatin 2020-0 Yes [id number] Apply to [facility] 100,000 2-05 affected [facility]y of unit/gram 00:00: area(s) 3 [facility] ointment 00 (three) Medical times Branch daily. nystatin 2020-0 Yes [id number] Apply to [facility] 100,000 2-05 affected [facility]y of unit/gram 00:00: area(s) 3 [facility] ointment 00 (three) Medical times Branch daily. nystatin 2020-0 Yes [id number] Apply to [facility] 100,000 2-05 affected [facility]y of unit/gram 00:00: area(s) 3 [facility] ointment 00 (three) Medical times Branch daily. nystatin 2020-0 Yes [id number] Apply to [facility] 100,000 2-05 affected [facility]y of unit/gram 00:00: area(s) 3 [facility] ointment 00 (three) Medical times Branch daily. nystatin 2020-0 Yes [id number] Apply to [facility] 100,000 2-05 affected [facility]y of unit/gram 00:00: area(s) 3 [facility] ointment 00 (three) Medical times Branch daily. nystatin 2020-0 Yes [id number] Apply to [facility] 100,000 2-05 affected [facility]y of unit/gram 00:00: area(s) 3 [facility] ointment 00 (three) Medical times Branch daily. nystatin 2020-0 Yes [id number] Apply to [facility] 100,000 2-05 affected [facility]y of unit/gram 00:00: area(s) 3 [facility] ointment 00 (three) Medical times Branch daily. nystatin 2020-0 Yes [id number] Apply to [facility] 100,000 2-05 affected [facility]y of unit/gram 00:00: area(s) 3 [facility] ointment 00 (three) Medical times Branch daily. nystatin 2020-0 Yes [id number] Apply to [facility] 100,000 2-05 affected [facility]y of unit/gram 00:00: area(s) 3 [facility] ointment 00 (three) Medical times Branch daily. nystatin 2020-0 Yes [id number] Apply to [facility] 100,000 2-05 affected [facility]y of unit/gram 00:00: area(s) 3 [facility] ointment 00 (three) Medical times Branch daily. nystatin 2020-0 Yes [id number] Apply to [facility] 100,000 2-05 affected [facility]y of unit/gram 00:00: area(s) 3 [facility] as ointment 00 (three) Medical times Branch daily. nystatin 2020-0 Yes [id number] Apply to [facility] 100,000 2-05 affected [facility]y of unit/gram 00:00: area(s) 3 [facility] ointment 00 (three) Medical times Branch daily. nystatin 2020-0 Yes [id number] Apply to [facility] 100,000 2-05 affected [facility]y of unit/gram 00:00: area(s) 3 [facility] ointment 00 (three) Medical times Branch daily. nystatin 2020-0 Yes [id number] Apply to [facility] 100,000 2-05 affected [facility]y of unit/gram 00:00: area(s) 3 [facility] ointment 00 (three) Medical times Branch daily. nystatin 2020-0 Yes [id number] Apply to [facility] 100,000 2-05 affected [facility]y of unit/gram 00:00: area(s) 3 [facility] ointment 00 (three) Medical times Branch daily. nystatin 2020-0 Yes [id number] Apply to [facility] 100,000 2-05 affected [facility]y of unit/gram 00:00: area(s) 3 [facility] ointment 00 (three) Medical times Branch daily. nystatin 2020-0 Yes [id number] Apply to [facility] 100,000 2-05 affected [facility]y of unit/gram 00:00: area(s) 3 [facility] ointment 00 (three) Medical times Branch daily. nystatin 2020-0 Yes [id number] Apply to [facility] 100,000 2-05 affected [facility]y of unit/gram 00:00: area(s) 3 [facility] ointment 00 (three) Medical times Branch daily. nystatin 2020-0 Yes [id number] Apply to [facility] 100,000 2-05 affected [facility]y of unit/gram 00:00: area(s) 3 [facility] ointment 00 (three) Medical times Branch daily. nystatin 2020-0 Yes [id number] Apply to [facility] 100,000 2-05 affected [facility]y of unit/gram 00:00: area(s) 3 [facility] ointment 00 (three) Medical times Branch daily. nystatin 2020-0 Yes [id number] Apply to [facility] 100,000 2-05 affected [facility]y of unit/gram 00:00: area(s) 3 [facility] ointment 00 (three) Medical times Branch daily. nystatin 2020-0 Yes [id number] Apply to [facility] 100,000 2-05 affected [facility]y of unit/gram 00:00: area(s) 3 [facility] ointment 00 (three) Medical times Branch daily. nystatin 2020-0 Yes [id number] Apply to [facility] 100,000 2-05 affected [facility]y of unit/gram 00:00: area(s) 3 [facility] ointment 00 (three) Medical times Branch daily. nystatin 2020-0 Yes [id number] Apply to [facility] 100,000 2-05 affected ity of unit/gram 00:00: area(s) 3 [facility] ointment 00 (three) Medical times Branch daily. nystatin 2020-0 Yes [id number] Apply to [facility] 100,000 2-05 affected ity of unit/gram 00:00: area(s) 3 [facility] ointment 00 (three) Medical times Branch daily. nystatin 2020-0 Yes [id number] Apply to [facility] 100,000 2-05 affected ity of unit/gram 00:00: area(s) 3 [facility] ointment 00 (three) Medical times Branch daily. nystatin 2020-0 Yes [id number] Apply to [facility] 100,000 2-05 affected ity of unit/gram 00:00: area(s) 3 [facility] ointment 00 (three) Medical times Branch daily. nystatin 2020-0 Yes [id number] Apply to [facility] 100,000 2-05 affected ity of unit/gram 00:00: area(s) 3 [facility] ointment 00 (three) Medical times Branch daily. nystatin 2020-0 Yes [id number] Apply to [facility] 100,000 2-05 affected ity of unit/gram 00:00: area(s) 3 [facility] ointment 00 (three) Medical times Branch daily. nystatin 2020-0 Yes [id number] Apply to [facility] 100,000 2-05 affected ity of unit/gram 00:00: area(s) 3 [facility] ointment 00 (three) Medical times Branch daily. nystatin 2020-0 Yes [id number] Apply to [facility] 100,000 2-05 affected ity of unit/gram 00:00: area(s) 3 [facility] ointment 00 (three) Medical times Branch daily. nystatin 2020-0 Yes [id number] Apply to [facility] 100,000 2-05 affected ity of unit/gram 00:00: area(s) 3 [facility] as ointment 00 (three) Medical times Branch daily. nystatin 2020-0 Yes [id number] Apply to [facility] 100,000 2-05 affected ity of unit/gram 00:00: area(s) 3 [facility] as ointment 00 (three) Medical times Branch daily. nystatin 2020-0 Yes [id number] Apply to [facility] 100,000 2-05 affected ity of unit/gram 00:00: area(s) 3 [facility] as ointment 00 (three) Medical times Branch daily. nystatin 2020-0 Yes [id number] Apply to [facility] 100,000 2-05 affected ity of unit/gram 00:00: area(s) 3 [facility] as ointment 00 (three) Medical times Branch daily. nystatin 2020-0 Yes [id number] Apply to [facility] 100,000 2-05 affected ity of unit/gram 00:00: area(s) 3 [facility] as ointment 00 (three) Medical times Branch daily. nystatin 2020-0 Yes [id number] Apply to [facility] 100,000 2-05 affected ity of unit/gram 00:00: area(s) 3 [facility] as ointment 00 (three) Medical times Branch daily. nystatin 2020-0 Yes [id number] Apply to [facility] 100,000 2-05 affected ity of unit/gram 00:00: area(s) 3 [facility] ointment 00 (three) Medical times Branch daily. nystatin 2020-0 Yes [id number] Apply to [facility] 100,000 2-05 affected ity of unit/gram 00:00: area(s) 3 [facility] as ointment 00 (three) Medical times Branch daily. nystatin 2020-0 Yes [id number] Apply to [facility] 100,000 2-05 affected ity of unit/gram 00:00: area(s) 3 [facility] as ointment 00 (three) Medical times Branch daily. nystatin 2020-0 Yes [id number] Apply to [facility] 100,000 2-05 affected ity of unit/gram 00:00: area(s) 3 [facility] as ointment 00 (three) Medical times Branch daily. nystatin 2020-0 Yes [id number] Apply to [facility] 100,000 2-05 affected ity of unit/gram 00:00: area(s) 3 [facility] as ointment 00 (three) Medical times Branch daily. nystatin 2020-0 Yes [id number] Apply to [facility] 100,000 2-05 affected ity of unit/gram 00:00: area(s) 3 [facility] as ointment 00 (three) Medical times Branch daily. nystatin 2020-0 Yes [id number] Apply to [facility] 100,000 2-05 affected ity of unit/gram 00:00: area(s) 3 [facility] as ointment 00 (three) Medical times Branch daily. nystatin 2020-0 Yes [id number] Apply to [facility] 100,000 2-05 affected ity of unit/gram 00:00: area(s) 3 [facility] as ointment 00 (three) Medical times Branch daily. nystatin 2020-0 Yes [id number] Apply to [facility] 100,000 2-05 affected ity of unit/gram 00:00: area(s) 3 [facility] as ointment 00 (three) Medical times Branch daily. nystatin 2020-0 Yes [id number] Apply to [facility] 100,000 2-05 affected ity of unit/gram 00:00: area(s) 3 [facility] as ointment 00 (three) Medical times Branch daily. nystatin 2020-0 Yes [id number] Apply to [facility] 100,000 2-05 affected ity of unit/gram 00:00: area(s) 3 [facility] as ointment 00 (three) Medical times Branch daily. nystatin 2020-0 Yes [id number] Apply to [facility] 100,000 2-05 affected ity [...] Tablet Tablet 00 DIRECTED. medroxyPROG 2019- Yes [id number] 150mg [facility] ESTERone 5-14 ity of (DEPO-PROVE 18:30: [place] [facility]) 00 Medical injection Branch 150 mg medroxyPROG 2019- Yes [id number] 150mg [facility] ESTERone 5-14 ity of (DEPO-PROVE 18:30: [place] [facility]) 00 Medical injection Branch 150 mg medroxyPROG 0 Yes [id number] 150mg [facility] ESTERone 5-14 ity of (DEPO-PROVE 18:30: [place] [facility]) 00 Medical injection Branch 150 mg medroxyPROG 2019-0 Yes [id number] 150mg [facility] ESTERone 5-14 ity of (DEPO-PROVE 18:30: [place] [facility]) 00 Medical injection Branch 150 mg medroxyPROG 2019-0 Yes [id number] 150mg [facility] ESTERone 5-14 ity of (DEPO-PROVE 18:30: [place] [facility]) 00 Medical injection Branch 150 mg medroxyPROG 2019-0 Yes [id number] 150mg [facility] ESTERone 5-14 ity of (DEPO-PROVE 18:30: [place] [facility]) 00 Medical injection Branch 150 mg medroxyPROG 2019-0 Yes [id number] 150mg [facility] ESTERone 5-14 ity of (DEPO-PROVE 18:30: [place] [facility]) 00 Medical injection Branch 150 mg medroxyPROG 2019-0 Yes [id number] 150mg [facility] ESTERone 5-14 ity of (DEPO-PROVE 18:30: [place] [facility]) 00 Medical injection Branch 150 mg medroxyPROG 2019-0 Yes [id number] 150mg [facility] ESTERone 5-14 ity of (DEPO-PROVE 18:30: [place] [facility]) 00 Medical injection Branch 150 mg medroxyPROG 2019-0 Yes [id number] 150mg [facility] ESTERone 5-14 ity of (DEPO-PROVE 18:30: [place] [facility]) 00 Medical injection Branch 150 mg medroxyPROG 2019-0 Yes [id number] 150mg [facility] ESTERone 5-14 ity of (DEPO-PROVE 18:30: [place] [facility]) 00 Medical injection Branch 150 mg medroxyPROG 2019-0 Yes [id number] 150mg [facility] ESTERone 5-14 ity of (DEPO-PROVE 18:30: [place] [facility]) 00 Medical injection Branch 150 mg medroxyPROG 2019-0 Yes [id number] 150mg [facility] ESTERone 5-14 ity of (DEPO-PROVE 18:30: [place] [facility]) 00 Medical injection Branch 150 mg medroxyPROG 2019-0 Yes [id number] 150mg [facility] ESTERone 5-14 ity of (DEPO-PROVE 18:30: [place] [facility]) 00 Medical injection Branch 150 mg medroxyPROG 2019-0 Yes [id number] 150mg [facility] ESTERone 5-14 ity of (DEPO-PROVE 18:30: [place] [facility]) 00 Medical injection Branch 150 mg medroxyPROG 2019-0 Yes [id number] 150mg [facility] ESTERone 5-14 ity of (DEPO-PROVE 18:30: [place] [facility]) 00 Medical injection Branch 150 mg medroxyPROG 2019-0 Yes [id number] 150mg [facility] ESTERone 5-14 ity of (DEPO-PROVE 18:30: [place] [facility]) 00 [facility] injection Branch 150 mg medroxyPROG 2019-0 Yes [id number] 150mg [facility] ESTERone 5-14 ity of (DEPO-PROVE 18:30: [place] [facility]) 00 [facility] injection [facility] 150 mg medroxyPROG 2019-0 Yes [id number] 150mg [facility] ESTERone 5-14 ity of (DEPO-PROVE 18:30: [place] [facility]) 00 [facility] injection [facility] 150 mg medroxyPROG 2019-0 Yes [id number] 150mg [facility] ESTERone 5-14 ity of (DEPO-PROVE 18:30: [place] [facility]) 00 [facility] injection [facility] 150 mg medroxyPROG 2019-0 Yes [id number] 150mg [facility] ESTERone 5-14 ity of (DEPO-PROVE 18:30: [place] [facility]) 00 [facility] injection [facility] 150 mg medroxyPROG 2019-0 Yes [id number] 150mg [facility] ESTERone 5-14 ity of (DEPO-PROVE 18:30: [place] [facility]) 00 [facility] injection [facility] 150 mg medroxyPROG 2019-0 Yes [id number] 150mg [facility] ESTERone 5-14 ity of (DEPO-PROVE 18:30: [place] [facility]) 00 [facility] injection [facility] 150 mg medroxyPROG 2019-0 Yes [id number] 150mg [facility] ESTERone 5-14 ity of (DEPO-PROVE 18:30: [place] [facility]) 00 [facility] injection [facility] 150 mg medroxyPROG 2019-0 Yes [id number] 150mg [facility] ESTERone 5-14 ity of (DEPO-PROVE 18:30: [place] [facility]) 00 [facility] injection [facility] 150 mg medroxyPROG 2019-0 Yes [id number] 150mg [facility] ESTERone 5-14 ity of (DEPO-PROVE 18:30: [place] [facility]) 00 [facility] injection [facility] 150 mg medroxyPROG 2019-0 Yes [id number] 150mg [facility] ESTERone 5-14 ity of (DEPO-PROVE 18:30: [place] [facility]) 00 [facility] injection [facility] 150 mg medroxyPROG 2019-0 Yes [id number] 150mg [facility] ESTERone 5-14 ity of (DEPO-PROVE 18:30: [place] [facility]) 00 [facility] injection [facility] 150 mg medroxyPROG 2019-0 Yes [id number] 150mg [facility] ESTERone 5-14 ity of (DEPO-PROVE 18:30: [place] [facility]) 00 [facility] injection [facility] 150 mg medroxyPROG 2019-0 Yes [id number] 150mg [facility] ESTERone 5-14 ity of (DEPO-PROVE 18:30: [place] [facility]) 00 [facility] injection [facility] 150 mg medroxyPROG 2019-0 Yes [id number] 150mg [facility] ESTERone 5-14 ity of (DEPO-PROVE 18:30: [place] [facility]) 00 [facility] injection [facility] 150 mg medroxyPROG 2019-0 Yes [id number] 150mg [facility] ESTERone 5-14 ity of (DEPO-PROVE 18:30: [place] [facility]) 00 [facility] injection [facility] 150 mg medroxyPROG 2019-0 Yes [id number] 150mg [facility] ESTERone 5-14 ity of (DEPO-PROVE 18:30: [place] [facility]) 00 [facility] injection [facility] 150 mg medroxyPROG 2019-0 Yes [id number] 150mg [facility] ESTERone 5-14 ity of (DEPO-PROVE 18:30: [place] [facility]) 00 [facility] injection [facility] 150 mg medroxyPROG 2019-0 Yes [id number] 150mg [facility] ESTERone 5-14 ity of (DEPO-PROVE 18:30: [place] [facility]) 00 [facility] injection [facility] 150 mg medroxyPROG 2019-0 Yes [id number] 150mg [facility] ESTERone 5-14 ity of (DEPO-PROVE 18:30: [place] [facility]) 00 [facility] injection [facility] 150 mg medroxyPROG 2019-0 Yes [id number] 150mg [facility] ESTERone 5-14 ity of (DEPO-PROVE 18:30: [place] [facility]) 00 [facility] injection [facility] 150 mg medroxyPROG 2019-0 Yes [id number] 150mg [facility] ESTERone 5-14 ity of (DEPO-PROVE 18:30: [place] [facility]) 00 [facility] injection [facility] 150 mg medroxyPROG 2019-0 Yes [id number] 150mg [facility] ESTERone 5-14 ity of (DEPO-PROVE 18:30: [place] [facility]) 00 [facility] injection [facility] 150 mg medroxyPROG 2019-0 Yes [id number] 150mg [facility] ESTERone 5-14 ity of (DEPO-PROVE 18:30: [place] [facility]) 00 [facility] injection [facility] 150 mg medroxyPROG 2019-0 Yes [id number] 150mg [facility] ESTERone 5-14 ity of (DEPO-PROVE 18:30: [place] [facility]) 00 [facility] injection [facility] 150 mg medroxyPROG 2019-0 Yes [id number] 150mg [facility] ESTERone 5-14 ity of (DEPO-PROVE 18:30: [place] [facility]) 00 [facility] injection [facility] 150 mg medroxyPROG 2019-0 Yes [id number] 150mg [facility] ESTERone 5-14 ity of (DEPO-PROVE 18:30: [place] [facility]) 00 [facility] injection [facility] 150 mg medroxyPROG 2019-0 Yes [id number] 150mg [facility] ESTERone 5-14 ity of (DEPO-PROVE 18:30: [place] [facility]) 00 [facility] injection [facility] 150 mg medroxyPROG 2019-0 Yes [id number] 150mg [facility] ESTERone 5-14 ity of (DEPO-PROVE 18:30: [place] [facility]) 00 [facility] injection [facility] 150 mg medroxyPROG 2019-0 Yes [id number] 150mg [facility] ESTERone 5-14 ity of (DEPO-PROVE 18:30: [place] [facility]) 00 [facility] injection [facility] 150 mg medroxyPROG 2019-0 Yes [id number] 150mg [facility] ESTERone 5-14 ity of (DEPO-PROVE 18:30: [place] [facility]) 00 [facility] injection [facility] 150 mg medroxyPROG 2019-0 Yes [id number] 150mg [facility] ESTERone 5-14 ity of (DEPO-PROVE 18:30: [place] [facility]) 00 [facility] injection [facility] 150 mg medroxyPROG 2019-0 Yes [id number] 150mg [facility] ESTERone 5-14 ity of (DEPO-PROVE 18:30: [place] [facility]) 00 [facility] injection [facility] 150 mg medroxyPROG 2019-0 Yes [id number] 150mg [facility] ESTERone 5-14 ity of (DEPO-PROVE 18:30: [place] [facility]) 00 [facility] injection [facility] 150 mg medroxyPROG 2019-0 Yes [id number] 150mg [facility] ESTERone 5-14 ity of (DEPO-PROVE 18:30: [place] [facility]) 00 [facility] injection [facility] 150 mg medroxyPROG 2019-0 Yes [id number] 150mg [facility] ESTERone 5-14 ity of (DEPO-PROVE 18:30: [place] [facility]) 00 [facility] injection [facility] 150 mg medroxyPROG 2019-0 Yes [id number] 150mg [facility] ESTERone 5-14 ity of (DEPO-PROVE 18:30: [place] [facility]) 00 [facility] injection [facility] 150 mg medroxyPROG 2019-0 Yes [id number] 150mg [facility] ESTERone 5-14 ity of (DEPO-PROVE 18:30: [place] [facility]) 00 [facility] injection [facility] 150 mg medroxyPROG 2019-0 Yes [id number] 150mg [facility] ESTERone 5-14 ity of (DEPO-PROVE 18:30: [place] [facility]) 00 [facility] injection [facility] 150 mg medroxyPROG 2019-0 Yes [id number] 150mg [facility] ESTERone 5-14 ity of (DEPO-PROVE 18:30: [place] [facility]) 00 [facility] injection [facility] 150 mg medroxyPROG 2019-0 Yes [id number] 150mg [facility] ESTERone 5-14 ity of (DEPO-PROVE 18:30: [place] [facility]) 00 [facility] injection [facility] 150 mg medroxyPROG 2019-0 Yes [id number] 150mg [facility] ESTERone 5-14 ity of (DEPO-PROVE 18:30: [place] [facility]) 00 [facility] injection [facility] 150 mg medroxyPROG 2019-0 Yes [id number] 150mg [facility] ESTERone 5-14 ity of (DEPO-PROVE 18:30: [place] [facility]) 00 Medical injection Branch 150 mg medroxyPROG 2019-0 Yes [id number] 150mg [facility] ESTERone 5-14 ity of (DEPO-PROVE 18:30: [place] [facility]) 00 [facility] injection Branch 150 mg medroxyPROG 2019-0 Yes [id number] 150mg [facility] ESTERone 5-14 ity of (DEPO-PROVE 18:30: [place] [facility]) 00 Medical injection Branch 150 mg medroxyPROG 2019-0 Yes [id number] 150mg [facility] ESTERone 5-14 ity of (DEPO-PROVE 18:30: [place] [facility]) 00 Medical injection Branch 150 mg medroxyPROG 2019-0 Yes [id number] 150mg [facility] ESTERone 5-14 ity of (DEPO-PROVE 18:30: [place] [facility]) 00 [facility] injection Branch 150 mg medroxyPROG 2019-0 Yes [id number] 150mg [facility] ESTERone 5-14 ity of (DEPO-PROVE 18:30: [place] [facility]) 00 Medical injection Branch 150 mg medroxyPROG 2019-0 Yes [id number] 150mg [facility] ESTERone 5-14 ity of (DEPO-PROVE 18:30: [place] [facility]) 00 Medical injection Branch 150 mg medroxyPROG 2019-0 Yes [id number] 150mg [facility] ESTERone 5-14 ity of (DEPO-PROVE 18:30: [place] [facility]) 00 Medical injection Branch 150 mg medroxyPROG 2019-0 Yes [id number] 150mg [facility] ESTERone 5-14 ity of (DEPO-PROVE 18:30: [place] [facility]) 00 Medical injection Branch 150 mg medroxyPROG 2019-0 Yes [id number] 150mg [facility] ESTERone 5-14 ity of (DEPO-PROVE 18:30: [place] [facility]) 00 Medical injection Branch 150 mg medroxyPROG 2019-0 Yes [id number] 150mg [facility] ESTERone 5-14 ity of (DEPO-PROVE 18:30: [place] [facility]) 00 Medical injection Branch 150 mg medroxyPROG 2019-0 Yes [id number] 150mg [facility] ESTERone 5-14 ity of (DEPO-PROVE 18:30: [place] [facility]) 00 Medical injection Branch 150 mg medroxyPROG 2019-0 Yes [id number] 150mg [facility] ESTERone 5-14 ity of (DEPO-PROVE 18:30: [place] [facility]) 00 Medical injection Branch 150 mg Keppra 500 Keppra 500 2018- Yes M.D. U T MG Oral MG Oral 1- Physici Tablet Tablet 00:00: ans 00 Immunizations Ordered Immunization Filled Date Status Comments Sour ce Name Immunization Name PFIZER COVID-19 MRNA 2021-08-06 Completed Meth odist VACCINATION 00:00:00 [facility] PFIZER COVID-19 MRNA 2021-08-06 Completed Meth odist VACCINATION 00:00:00 [facility] COVID-19 MRNA 2021-08-06 Completed Meth odist VACCINATION 00:00:00 [facility] COVID-19 MRNA 2021-08-06 Completed Meth odist VACCINATION 00:00:00 [facility] COVID-19 MRNA 2021-08-06 Completed Meth odist VACCINATION 00:00:00 [facility] COVID-19 MRNA 2021-08-06 Completed Meth odist VACCINATION 00:00:00 Hospital PFIZER COVID-19 MRNA 2021-08-06 Completed Meth odist VACCINATION 00:00:00 Hospital PFIZER COVID-19 MRNA 2021-08-06 Completed Meth odist VACCINATION 00:00:00 Hospital PFIZER COVID-19 MRNA 2021-08-06 Completed Meth odist VACCINATION 00:00:00 [facility] SARS-COV-2 COVID-19 2021-08-06 Completed Unive rsity of PFIZER VACCINE 00:00:00 [facility] SARS-COV-2 COVID-19 2021-08-06 Completed Unive rsity of PFIZER VACCINE 00:00:00 [facility] SARS-COV-2 COVID-19 2021-08-06 Completed Unive rsity of PFIZER VACCINE 00:00:00 [facility] SARS-COV-2 COVID-19 2021-08-06 Completed Unive rsity of PFIZER VACCINE 00:00:00 [facility] SARS-COV-2 COVID-19 2021-08-06 Completed Unive rsity of PFIZER VACCINE 00:00:00 [facility] SARS-COV-2 COVID-19 2021-08-06 Completed Unive rsity of PFIZER VACCINE 00:00:00 [facility] SARS-COV-2 COVID-19 2021-08-06 Completed Unive rsity of PFIZER VACCINE 00:00:00 [facility] SARS-COV-2 COVID-19 2021-08-06 Completed Unive rsity of PFIZER VACCINE 00:00:00 [facility] SARS-COV-2 COVID-19 2021-08-06 Completed Unive rsity of PFIZER VACCINE 00:00:00 [facility] SARS-COV-2 COVID-19 2021-08-06 Completed Unive rsity of PFIZER VACCINE 00:00:00 [facility] SARS-COV-2 COVID-19 2021-08-06 Completed Unive rsity of PFIZER VACCINE 00:00:00 [facility] SARS-COV-2 COVID-19 2021-08-06 Completed Unive rsity of PFIZER VACCINE 00:00:00 [facility] SARS-COV-2 COVID-19 2021-08-06 Completed Unive rsity of PFIZER VACCINE 00:00:00 [place] [facility] SARS-COV-2 COVID-19 2021-08-06 Completed Unive rsity of PFIZER VACCINE 00:00:00 [facility] SARS-COV-2 COVID-19 2021-08-06 Completed Unive rsity of PFIZER VACCINE 00:00:00 [facility] SARS-COV-2 COVID-19 2021-08-06 Completed Unive rsity of PFIZER VACCINE 00:00:00 [facility] SARS-COV-2 COVID-19 2021-08-06 Completed Unive rsity of PFIZER VACCINE 00:00:00 [facility] SARS-COV-2 COVID-19 2021-08-06 Completed Unive rsity of PFIZER VACCINE 00:00:00 [facility] SARS-COV-2 COVID-19 2021-08-06 Completed Unive rsity of PFIZER VACCINE 00:00:00 [facility] SARS-COV-2 COVID-19 2021-08-06 Completed Unive rsity of PFIZER VACCINE 00:00:00 [facility] SARS-COV-2 COVID-19 2021-08-06 Completed Unive rsity of PFIZER VACCINE 00:00:00 [facility] SARS-COV-2 COVID-19 2021-08-06 Completed Unive rsity of PFIZER VACCINE 00:00:00 [facility] SARS-COV-2 COVID-19 2021-08-06 Completed Unive rsity of PFIZER VACCINE 00:00:00 [facility] SARS-COV-2 COVID-19 2021-08-06 Completed Unive rsity of PFIZER VACCINE 00:00:00 [facility] SARS-COV-2 COVID-19 2021-08-06 Completed Unive rsity of PFIZER VACCINE 00:00:00 [facility] SARS-COV-2 COVID-19 2021-08-06 Completed Unive rsity of PFIZER VACCINE 00:00:00 [facility] SARS-COV-2 COVID-19 2021-08-06 Completed Unive rsity of PFIZER VACCINE 00:00:00 [facility] SARS-COV-2 COVID-19 2021-08-06 Completed Unive rsity of PFIZER VACCINE 00:00:00 [facility] SARS-COV-2 COVID-19 2021-08-06 Completed Unive rsity of PFIZER VACCINE 00:00:00 [facility] PFIZER COVID-19 MRNA 2021-07-09 Completed Meth odist [...] 2021-07-09 Completed Meth odist VACCINATION 00:00:00 [facility] PFIZER COVID-19 MRNA 2021-07-09 Completed Meth odist VACCINATION 00:00:00 Hospital PFIZER COVID-19 MRNA 2021-07-09 Completed Meth odist VACCINATION 00:00:00 [facility] PFIZER COVID-19 MRNA 2021-07-09 Completed Meth odist VACCINATION 00:00:00 [facility] SARS-COV-2 COVID-19 2021-07-09 Completed Unive rsity of PFIZER VACCINE 00:00:00 [facility] Influenza Virus 2021-07-09 Completed Universit y of Vaccine Quad .5 mL 00:00:00 [facility] IM 6+ MO Branch SARS-COV-2 COVID-19 2021-07-09 Completed Unive rsity of PFIZER VACCINE 00:00:00 [facility] Influenza Virus 2021-07-09 Completed Universit y of Vaccine Quad .5 mL 00:00:00 [place] [facility] IM 6+ MO Branch SARS-COV-2 COVID-19 2021-07-09 Completed Unive rsity of PFIZER VACCINE 00:00:00 [facility] Influenza Virus 2021-07-09 Completed Universit y of Vaccine Quad .5 mL 00:00:00 [place] [facility] IM 6+ MO Branch SARS-COV-2 COVID-19 2021-07-09 Completed Unive rsity of PFIZER VACCINE 00:00:00 [facility] Influenza Virus 2021-07-09 Completed Universit y of Vaccine Quad .5 mL 00:00:00 [place] [facility] IM 6+ MO Branch SARS-COV-2 COVID-19 2021-07-09 Completed Unive rsity of PFIZER VACCINE 00:00:00 [facility] Influenza Virus 2021-07-09 Completed Universit y of Vaccine Quad .5 mL 00:00:00 [place] [facility] IM 6+ MO Branch SARS-COV-2 COVID-19 2021-07-09 Completed Unive rsity of PFIZER VACCINE 00:00:00 [facility] Influenza Virus 2021-07-09 Completed Universit y of Vaccine Quad .5 mL 00:00:00 [place] [facility] IM 6+ MO Branch SARS-COV-2 COVID-19 2021-07-09 Completed Unive rsity of PFIZER VACCINE 00:00:00 [facility] Influenza Virus 2021-07-09 Completed Universit y of Vaccine Quad .5 mL 00:00:00 [place] [facility] IM 6+ MO Branch SARS-COV-2 COVID-19 2021-07-09 Completed Unive rsity of PFIZER VACCINE 00:00:00 [facility] Influenza Virus 2021-07-09 Completed Universit y of Vaccine Quad .5 mL 00:00:00 [place] [facility] IM 6+ MO Branch SARS-COV-2 COVID-19 2021-07-09 Completed Unive rsity of PFIZER VACCINE 00:00:00 [facility] Influenza Virus 2021-07-09 Completed Universit y of Vaccine Quad .5 mL 00:00:00 [place] [facility] IM 6+ MO Branch SARS-COV-2 COVID-19 2021-07-09 Completed Unive rsity of PFIZER VACCINE 00:00:00 [facility] Influenza Virus 2021-07-09 Completed Universit y of Vaccine Quad .5 mL 00:00:00 [place] [facility] IM 6+ MO Branch SARS-COV-2 COVID-19 2021-07-09 Completed Unive rsity of PFIZER VACCINE 00:00:00 [facility] Influenza Virus 2021-07-09 Completed Universit y of Vaccine Quad .5 mL 00:00:00 [place] [facility] IM 6+ MO Branch SARS-COV-2 COVID-19 2021-07-09 Completed Unive rsity of PFIZER VACCINE 00:00:00 [facility] Influenza Virus 2021-07-09 Completed Universit y of Vaccine Quad .5 mL 00:00:00 [place] [facility] IM 6+ MO Branch SARS-COV-2 COVID-19 2021-07-09 Completed Unive rsity of PFIZER VACCINE 00:00:00 [facility] Influenza Virus 2021-07-09 Completed Universit y of Vaccine Quad .5 mL 00:00:00 [place] [facility] IM 6+ MO Branch SARS-COV-2 COVID-19 2021-07-09 Completed Unive rsity of PFIZER VACCINE 00:00:00 [facility] Influenza Virus 2021-07-09 Completed Universit y of Vaccine Quad .5 mL 00:00:00 [place] [facility] IM 6+ MO Branch SARS-COV-2 COVID-19 2021-07-09 Completed Unive rsity of PFIZER VACCINE 00:00:00 [facility] Influenza Virus 2021-07-09 Completed Universit y of Vaccine Quad .5 mL 00:00:00 [facility] 6+ MO Branch SARS-COV-2 COVID-19 2021-07-09 Completed Unive rsity of PFIZER VACCINE 00:00:00 [facility] Influenza Virus 2021-07-09 Completed Universit y of Vaccine Quad .5 mL 00:00:00 [facility] 6+ MO Branch SARS-COV-2 COVID-19 2021-07-09 Completed Unive rsity of PFIZER VACCINE 00:00:00 [facility] Influenza Virus 2021-07-09 Completed Universit y of Vaccine Quad .5 mL 00:00:00 [facility] 6+ MO Branch SARS-COV-2 COVID-19 2021-07-09 Completed Unive rsity of PFIZER VACCINE 00:00:00 [facility] Influenza Virus 2021-07-09 Completed Universit y of Vaccine Quad .5 mL 00:00:00 [place] [facility] IM 6+ MO Branch SARS-COV-2 COVID-19 2021-07-09 Completed Unive rsity of PFIZER VACCINE 00:00:00 [facility] Influenza Virus 2021-07-09 Completed Universit y of Vaccine Quad .5 mL 00:00:00 [place] [facility] IM 6+ MO Branch SARS-COV-2 COVID-19 2021-07-09 Completed Unive rsity of PFIZER VACCINE 00:00:00 [facility] Influenza Virus 2021-07-09 Completed Universit y of Vaccine Quad .5 mL 00:00:00 [place] [facility] IM 6+ MO Branch SARS-COV-2 COVID-19 2021-07-09 Completed Unive rsity of PFIZER VACCINE 00:00:00 [facility] Influenza Virus 2021-07-09 Completed Universit y of Vaccine Quad .5 mL 00:00:00 [facility] 6+ MO Branch SARS-COV-2 COVID-19 2021-07-09 Completed Unive rsity of PFIZER VACCINE 00:00:00 [facility] Influenza Virus 2021-07-09 Completed Universit y of Vaccine Quad .5 mL 00:00:00 [facility] 6+ MO Paguate SARS-COV-2 COVID-19 2021-07-09 Completed Unive rsity of PFIZER VACCINE 00:00:00 [facility] Influenza Virus 2021-07-09 Completed Universit y of Vaccine Quad .5 mL 00:00:00 [facility] 6+ MO Paguate SARS-COV-2 COVID-19 2021-07-09 Completed Unive rsity of PFIZER VACCINE 00:00:00 [facility] Influenza Virus 2021-07-09 Completed Universit y of Vaccine Quad .5 mL 00:00:00 [facility] 6+ MO Paguate SARS-COV-2 COVID-19 2021-07-09 Completed Unive rsity of PFIZER VACCINE 00:00:00 [facility] Influenza Virus 2021-07-09 Completed Universit y of Vaccine Quad .5 mL 00:00:00 [facility] 6+ MO Paguate SARS-COV-2 COVID-19 2021-07-09 Completed Unive rsity of PFIZER VACCINE 00:00:00 [facility] Influenza Virus 2021-07-09 Completed Universit y of Vaccine Quad .5 mL 00:00:00 [facility] 6+ MO Paguate SARS-COV-2 COVID-19 2021-07-09 Completed Unive rsity of PFIZER VACCINE 00:00:00 [facility] Influenza Virus 2021-07-09 Completed Universit y of Vaccine Quad .5 mL 00:00:00 [facility] 6+ MO Paguate (FLUZONE/FLULAVAL/FL UARIX) SARS-COV-2 COVID-19 2021-07-09 Completed Unive rsity of PFIZER VACCINE 00:00:00 [facility] Influenza Virus 2021-07-09 Completed Universit y of Vaccine Quad .5 mL 00:00:00 [facility] IM 6+ MO Branch (FLUZONE/FLULAVAL/FL UARIX) SARS-COV-2 COVID-19 2021-07-09 Completed Unive rsity of PFIZER VACCINE 00:00:00 [facility] Influenza Virus 2021-07-09 Completed Universit y of Vaccine Quad .5 mL 00:00:00 [facility] IM 6+ MO Branch (FLUZONE/FLULAVAL/FL UARIX) Tetanus/Diptheria 2016-08-11 Completed Univers ity of 00:00:00 [facility] Varicella 2016-08-11 Completed University of (varivax)(chicken 00:00:00 [place] [facility] pox) [facility] Tetanus/Diptheria 2016-08-11 Completed Univers ity of 00:00:00 [facility] Varicella 2016-08-11 Completed University of (varivax)(chicken 00:00:00 [place] [facility] pox) [facility] Tetanus/Diptheria 2016-08-11 Completed Univers ity of 00:00:00 [facility] Varicella 2016-08-11 Completed University of (varivax)(chicken 00:00:00 [place] [facility] pox) [facility] Tetanus/Diptheria 2016-08-11 Completed Univers ity of 00:00:00 [facility] Varicella 2016-08-11 Completed University of (varivax)(chicken 00:00:00 [place] [facility] pox) [facility] Tetanus/Diptheria 2016-08-11 Completed Univers ity of 00:00:00 [facility] Varicella 2016-08-11 Completed University of (varivax)(chicken 00:00:00 [place] [facility] pox) [facility] Tetanus/Diptheria 2016-08-11 Completed Univers ity of 00:00:00 [facility] Varicella 2016-08-11 Completed University of (varivax)(chicken 00:00:00 [place] [facility] pox) [facility] Tetanus/Diptheria 2016-08-11 Completed Univers ity of 00:00:00 [facility] Varicella 2016-08-11 Completed University of (varivax)(chicken 00:00:00 [place] [facility] pox) [facility] Tetanus/Diptheria 2016-08-11 Completed Univers ity of 00:00:00 [facility] Varicella 2016-08-11 Completed University of (varivax)(chicken 00:00:00 [place] [facility] pox) [facility] Tetanus/Diptheria 2016-08-11 Completed Univers ity of 00:00:00 [facility] Varicella 2016-08-11 Completed University of (varivax)(chicken 00:00:00 [place] [facility] pox) [facility] Tetanus/Diptheria 2016-08-11 Completed Univers ity of 00:00:00 [facility] Varicella 2016-08-11 Completed University of (varivax)(chicken 00:00:00 [place] [facility] pox) [facility] Tetanus/Diptheria 2016-08-11 Completed Univers ity of 00:00:00 [facility] Varicella 2016-08-11 Completed University of (varivax)(chicken 00:00:00 [place] [facility] pox) [facility] Tetanus/Diptheria 2016-08-11 Completed Univers ity of 00:00:00 [facility] Varicella 2016-08-11 Completed University of (varivax)(chicken 00:00:00 [place] [facility] pox) [facility] Tetanus/Diptheria 2016-08-11 Completed Univers ity of 00:00:00 [facility] Varicella 2016-08-11 Completed University of (varivax)(chicken 00:00:00 [place] [facility] pox) [facility] Tetanus/Diptheria 2016-08-11 Completed Univers ity of 00:00:00 [facility] Varicella 2016-08-11 Completed University of (varivax)(chicken 00:00:00 [place] [facility] pox) [facility] Tetanus/Diptheria 2016-08-11 Completed Univers ity of 00:00:00 [facility] Varicella 2016-08-11 Completed University of (varivax)(chicken 00:00:00 [place] [facility] pox) [facility] Tetanus/Diptheria 2016-08-11 Completed Univers ity of 00:00:00 [facility] Varicella 2016-08-11 Completed University of (varivax)(chicken 00:00:00 [place] [facility] pox) [facility] Tetanus/Diptheria 2016-08-11 Completed Univers ity of 00:00:00 [facility] Varicella 2016-08-11 Completed University of (varivax)(chicken 00:00:00 [place] [facility] pox) [facility] Tetanus/Diptheria 2016-08-11 Completed Univers ity of 00:00:00 [facility] Varicella 2016-08-11 Completed University of (varivax)(chicken 00:00:00 [place] [facility] pox) Branch Tetanus/Diptheria 2016-08-11 Completed Univers ity of 00:00:00 [facility] Varicella 2016-08-11 Completed University of (varivax)(chicken 00:00:00 [place] [facility] pox) [facility] Tetanus/Diptheria 2016-08-11 Completed Univers ity of 00:00:00 [facility] Varicella 2016-08-11 Completed University of (varivax)(chicken 00:00:00 [place] [facility] pox) [facility] Tetanus/Diptheria 2016-08-11 Completed Univers ity of 00:00:00 [facility] Varicella 2016-08-11 Completed University of (varivax)(chicken 00:00:00 [place] [facility] Tetanus/Diptheria 2016-08-11 Completed [facility] 00:00:00 [facility] Varicella 2016-08-11 Completed University of (varivax)(chicken 00:00:00 [place] [facility] Tetanus/Diptheria 2016-08-11 Completed [facility] 00:00:00 [facility] Varicella 2016-08-11 Completed [facility] (varivax)(chicken 00:00:00 [place] [facility] Tetanus/Diptheria 2016-08-11 Completed [facility] of 00:00:00 [facility] Varicella 2016-08-11 Completed [facility] of (varivax)(chicken 00:00:00 [facility] Tetanus/Diptheria 2016-08-11 Completed [facility] 00:00:00 [facility] Varicella 2016-08-11 Completed [facility] of (varivax)(chicken 00:00:00 [facility] Tetanus/Diptheria 2016-08-11 Completed [facility] 00:00:00 [facility] Varicella 2016-08-11 Completed [facility] of (varivax)(chicken 00:00:00 [place] [facility] Tetanus/Diptheria 2016-08-11 Completed [facility] of 00:00:00 [facility] Varicella 2016-08-11 Completed [facility] of (varivax)(chicken 00:00:00 [place] [facility] Tetanus/Diptheria 2016-08-11 Completed [facility] 00:00:00 [facility] Varicella 2016-08-11 Completed [facility] of (varivax)(chicken 00:00:00 [place] [facility] Tetanus/Diptheria 2016-08-11 Completed [facility] 00:00:00 [facility] Varicella 2016-08-11 Completed University of (varivax)(chicken [...] University of 00:00:00 [facility] HPV 2008-09-27 Completed University of 00:00:00 [facility] HEPATITIS A 2008-09-27 Completed University of 00:00:00 [facility] HPV 2008-09-27 Completed [facility] 00:00:00 [facility] HEPATITIS A 2008-09-27 Completed [facility] of 00:00:00 [facility] HPV 2008-09-27 Completed [facility] 00:00:00 [place] [facility] HPV 2008-03-06 Completed [facility] 00:00:00 [facility] HEPATITIS A 2008-03-06 Completed [facility] 00:00:00 [facility] HPV 2008-03-06 Completed [facility] 00:00:00 [facility] HEPATITIS A 2008-03-06 Completed [facility] 00:00:00 [facility] HPV 2008-03-06 Completed [facility] 00:00:00 [facility] HEPATITIS A 2008-03-06 Completed [facility] 00:00:00 [facility] HPV 2008-03-06 Completed [facility] 00:00:00 [facility] HEPATITIS A 2008-03-06 Completed [facility] 00:00:00 [facility] HPV 2008-03-06 Completed [facility] 00:00:00 [facility] HEPATITIS A 2008-03-06 Completed University [...] HEPATITIS A 2008-03-06 Completed [facility] 00:00:00 [facility] HPV 2008-03-06 Completed [facility] 00:00:00 [facility] HEPATITIS A 2008-03-06 Completed [facility] 00:00:00 [facility] HPV 2008-03-06 Completed [facility] 00:00:00 [facility] HEPATITIS A 2008-03-06 Completed [facility] 00:00:00 [facility] HPV 2008-03-06 Completed [facility] 00:00:00 [facility] HEPATITIS A 2008-03-06 Completed [facility] 00:00:00 [facility] HPV 2008-03-06 Completed [facility] 00:00:00 [facility] HEPATITIS A 2008-03-06 Completed [facility] 00:00:00 [facility] HPV 2008-03-06 Completed [facility] of 00:00:00 [facility] HEPATITIS A 2008-03-06 Completed [facility] of 00:00:00 [facility] HPV 2008-03-06 Completed [facility] of 00:00:00 [facility] HEPATITIS A 2008-03-06 Completed [facility] 00:00:00 [facility] HPV 2008-03-06 Completed [facility] 00:00:00 [facility] HEPATITIS A 2008-03-06 Completed [facility] 00:00:00 [facility] HPV 2008-03-06 Completed [facility] of 00:00:00 [facility] HEPATITIS A 2008-03-06 Completed [facility] 00:00:00 [facility] HPV 2008-03-06 Completed [facility] of 00:00:00 [facility] HEPATITIS A 2008-03-06 Completed [facility] 00:00:00 [facility] HPV 2008-03-06 Completed [facility] of 00:00:00 [facility] HEPATITIS A 2008-03-06 Completed [facility] of 00:00:00 [facility] HPV 2008-03-06 Completed [facility] of 00:00:00 [facility] HEPATITIS A 2008-03-06 Completed [facility] of 00:00:00 [facility] HPV 2008-03-06 Completed [facility] of 00:00:00 [facility] Meningococcal 2007-12-29 Completed [facility] Polysaccharide 00:00:00 [place] [facility] (groups A, C, Y and Branc h W-135) conjugate vaccine (MCV4P) TDAP 2007-12-29 Completed [facility] of 00:00:00 [facility] Meningococcal 2007-12-29 Completed [facility] Polysaccharide 00:00:00 [place] [facility] (groups A, C, Y and Branc h W-135) conjugate vaccine (MCV4P) TDAP 2007-12-29 Completed [facility] of 00:00:00 [facility] Meningococcal 2007-12-29 Completed [facility] Polysaccharide 00:00:00 [place] [facility] (groups A, C, Y and Branc h W-135) conjugate vaccine (MCV4P) TDAP 2007-12-29 Completed [facility] of 00:00:00 [facility] Meningococcal 2007-12-29 Completed [facility] Polysaccharide 00:00:00 [place] [facility] (groups A, C, Y and Branc h W-135) conjugate vaccine (MCV4P) TDAP 2007-12-29 Completed [facility] of 00:00:00 [facility] Meningococcal 2007-12-29 Completed [facility] Polysaccharide 00:00:00 [place] [facility] (groups A, C, Y and Branc h W-135) conjugate vaccine (MCV4P) TDAP 2007-12-29 Completed [facility] of 00:00:00 [facility] Meningococcal 2007-12-29 Completed [facility] Polysaccharide 00:00:00 [place] [facility] (groups A, C, Y and Branc h W-135) conjugate vaccine (MCV4P) TDAP 2007-12-29 Completed [facility] of 00:00:00 [facility] Meningococcal 2007-12-29 Completed [facility] Polysaccharide 00:00:00 [place] [facility] (groups A, C, Y and Branc h W-135) conjugate vaccine (MCV4P) TDAP 2007-12-29 Completed [facility] 00:00:00 [facility] Meningococcal 2007-12-29 Completed [facility] Polysaccharide 00:00:00 [place] [facility] (groups A, C, Y and Branc h W-135) conjugate vaccine (MCV4P) TDAP 2007-12-29 Completed [facility] of 00:00:00 [facility] Meningococcal 2007-12-29 Completed [facility] Polysaccharide 00:00:00 [place] [facility] (groups A, C, Y and Branc h W-135) conjugate vaccine (MCV4P) TDAP 2007-12-29 Completed [facility] 00:00:00 [facility] Meningococcal 2007-12-29 Completed [facility] Polysaccharide 00:00:00 [place] [facility] (groups A, C, Y and Branc h W-135) conjugate vaccine (MCV4P) TDAP 2007-12-29 Completed [facility] of 00:00:00 [facility] Meningococcal 2007-12-29 Completed [facility] Polysaccharide 00:00:00 [place] [facility] (groups A, C, Y and Branc h W-135) conjugate vaccine (MCV4P) TDAP 2007-12-29 Completed [facility] 00:00:00 [facility] Meningococcal 2007-12-29 Completed [facility] Polysaccharide 00:00:00 [place] [facility] (groups A, C, Y and Branc h W-135) conjugate vaccine (MCV4P) TDAP 2007-12-29 Completed [facility] 00:00:00 [facility] Meningococcal 2007-12-29 Completed [facility] Polysaccharide 00:00:00 [place] [facility] (groups A, C, Y and Branc h W-135) conjugate vaccine (MCV4P) TDAP 2007-12-29 Completed [facility] 00:00:00 [facility] Meningococcal 2007-12-29 Completed [facility] Polysaccharide 00:00:00 [place] [facility] (groups A, C, Y and Branc h W-135) conjugate vaccine (MCV4P) TDAP 2007-12-29 Completed [facility] 00:00:00 [facility] Meningococcal 2007-12-29 Completed [facility] Polysaccharide 00:00:00 [place] [facility] (groups A, C, Y and Branc h W-135) conjugate vaccine (MCV4P) TDAP 2007-12-29 Completed [facility] 00:00:00 [facility] Meningococcal 2007-12-29 Completed [facility] Polysaccharide 00:00:00 [place] [facility] (groups A, C, Y and Branc h W-135) conjugate vaccine (MCV4P) TDAP 2007-12-29 Completed [facility] 00:00:00 [facility] Meningococcal 2007-12-29 Completed [facility] Polysaccharide 00:00:00 [place] [facility] (groups A, C, Y and Branc h W-135) conjugate vaccine (MCV4P) TDAP 2007-12-29 Completed [facility] 00:00:00 [facility] Meningococcal 2007-12-29 Completed [facility] Polysaccharide 00:00:00 [place] [facility] (groups A, C, Y and Branc h W-135) conjugate vaccine (MCV4P) TDAP 2007-12-29 Completed [facility] 00:00:00 [facility] Meningococcal 2007-12-29 Completed [facility] Polysaccharide 00:00:00 [place] [facility] (groups A, C, Y and Branc h W-135) conjugate vaccine (MCV4P) TDAP 2007-12-29 Completed [facility] 00:00:00 [facility] Meningococcal 2007-12-29 Completed [facility] Polysaccharide 00:00:00 [place] [facility] (groups A, C, Y and Branc h W-135) conjugate vaccine (MCV4P) TDAP 2007-12-29 Completed [facility] 00:00:00 [facility] Meningococcal 2007-12-29 Completed [facility] Polysaccharide 00:00:00 [place] [facility] (groups A, C, Y and Branc h W-135) conjugate vaccine (MCV4P) TDAP 2007-12-29 Completed [facility] 00:00:00 [facility] Meningococcal 2007-12-29 Completed [facility] Polysaccharide 00:00:00 [place] [facility] (groups A, C, Y and Branc h W-135) conjugate vaccine (MCV4P) TDAP 2007-12-29 Completed [facility] 00:00:00 [facility] Meningococcal 2007-12-29 Completed [facility] Polysaccharide 00:00:00 [place] [facility] (groups A, C, Y and Branc h W-135) conjugate vaccine (MCV4P) TDAP 2007-12-29 Completed [facility] 00:00:00 [facility] Meningococcal 2007-12-29 Completed [facility] Polysaccharide 00:00:00 [place] [facility] (groups A, C, Y and Branc h W-135) conjugate vaccine (MCV4P) TDAP 2007-12-29 Completed [facility] 00:00:00 [facility] Meningococcal 2007-12-29 Completed [facility] Polysaccharide 00:00:00 [place] [facility] (groups A, C, Y and Branc h W-135) conjugate vaccine (MCV4P) TDAP 2007-12-29 Completed [facility] 00:00:00 [facility] Meningococcal 2007-12-29 Completed [facility] Polysaccharide 00:00:00 [place] [facility] (groups A, C, Y and Branc h W-135) conjugate vaccine (MCV4P) TDAP 2007-12-29 Completed [facility] 00:00:00 [facility] Meningococcal 2007-12-29 Completed [facility] Polysaccharide 00:00:00 [place] [facility] (groups A, C, Y and Branc h W-135) conjugate vaccine (MCV4P) TDAP 2007-12-29 Completed [facility] 00:00:00 [facility] Meningococcal 2007-12-29 Completed [facility] Polysaccharide 00:00:00 [place] [facility] (groups A, C, Y and Branc h W-135) conjugate vaccine (MCV4P) TDAP 2007-12-29 Completed University 00:00:00 [facility] Meningococcal 2007-12-29 Completed University [facility] 00:00:00 [facility] (groups A, C, Y and Branc h W-135) conjugate vaccine (MCV4P) TDAP 2007-12-29 Completed University 00:00:00 [facility] DTaP, Unspecified 1998-01-03 Completed Univers [facility]y of Formulation 00:00:00 [facility] Hep B, Adol or Pedi 1998-01-03 Completed Unive rsity of Dosage 00:00:00 [facility] Poliovirus, Live, 1998-01-03 Completed Univers [facility] of Oral, Trivalent 00:00:00 [facility] DTaP, Unspecified 1998-01-03 Completed Univers ity of Formulation 00:00:00 [facility] Hep B, Adol or Pedi 1998-01-03 Completed Unive rsity of Dosage 00:00:00 [facility] Poliovirus, Live, 1998-01-03 Completed Univers [facility] of Oral, Trivalent 00:00:00 [facility] DTaP, Unspecified 1998-01-03 Completed Univers ity of Formulation 00:00:00 [facility] Hep B, Adol or Pedi 1998-01-03 Completed Unive rsity of Dosage 00:00:00 [facility] Poliovirus, Live, 1998-01-03 Completed Univers it[facility] of Oral, Trivalent 00:00:00 [facility] DTaP, Unspecified 1998-01-03 Completed Univers ity of Formulation 00:00:00 [facility] Hep B, Adol or Pedi 1998-01-03 Completed Unive rsity of Dosage 00:00:00 [facility] Poliovirus, Live, 1998-01-03 Completed Univers [facility] of Oral, Trivalent 00:00:00 [facility] DTaP, Unspecified 1998-01-03 Completed [facility] ity of Formulation 00:00:00 [facility] Hep B, Adol or Pedi 1998-01-03 Completed Unive rsity of Dosage 00:00:00 [facility] Poliovirus, Live, 1998-01-03 Completed [facility] Oral, Trivalent 00:00:00 [facility] DTaP, Unspecified 1998-01-03 Completed [facility] of Formulation 00:00:00 [facility] Hep B, Adol or Pedi 1998-01-03 Completed Unive rsity of Dosage 00:00:00 [facility] Poliovirus, Live, 1998-01-03 Completed Univers ity of Oral, Trivalent 00:00:[address] [facility] DTaP, Unspecified 1998-01-03 Completed Univers it[facility] of Formulation 00:00:00 [facility] Hep B, Adol or Pedi 1998-01-03 Completed Unive rsity of Dosage 00:00:00 [facility] Poliovirus, Live, 1998-01-03 Completed Univers [facility] of Oral, Trivalent 00:00:00 [facility] DTaP, Unspecified 1998-01-03 Completed Univers ity of Formulation 00:00:00 [facility] Hep B, Adol or Pedi 1998-01-03 Completed Unive rsity of Dosage 00:00:00 [facility] Poliovirus, Live, 1998-01-03 Completed Univers it[facility] of Oral, Trivalent 00:00:[address] [facility] DTaP, Unspecified 1998-01-03 Completed Univers ity of Formulation 00:00:00 [facility] Hep B, Adol or Pedi 1998-01-03 Completed Unive rsity of Dosage 00:00:00 [facility] Poliovirus, Live, 1998-01-03 Completed Univers ity of Oral, Trivalent 00:00:00 [facility] DTaP, Unspecified 1998-01-03 Completed [facility] ity of Formulation 00:00:00 [facility] Hep B, Adol or Pedi 1998-01-03 Completed Unive rsity of Dosage 00:00:00 [facility] Poliovirus, Live, 1998-01-03 Completed Univers it[facility] of Oral, Trivalent 00:00:[address] [facility] DTaP, Unspecified 1998-01-03 Completed Univers ity of Formulation 00:00:00 [facility] Hep B, Adol or Pedi 1998-01-03 Completed Unive rsity of Dosage 00:00:00 [facility] Poliovirus, Live, 1998-01-03 Completed Univers ity of Oral, Trivalent 00:00:[address] [facility] DTaP, Unspecified 1998-01-03 Completed Univers ity of Formulation 00:00:00 [facility] Hep B, Adol or Pedi 1998-01-03 Completed Unive rsity of Dosage 00:00:00 [facility] Poliovirus, Live, 1998-01-03 Completed Univers ity of Oral, Trivalent 00:00:[address] [facility] DTaP, Unspecified 1998-01-03 Completed Univers ity of Formulation 00:00:00 [facility] Hep B, Adol or Pedi 1998-01-03 Completed Unive rsity of Dosage 00:00:00 [facility] Poliovirus, Live, 1998-01-03 Completed Univers ity of Oral, Trivalent 00:00:[address] [facility] DTaP, Unspecified 1998-01-03 Completed Univers ity of Formulation 00:00:00 [facility] Hep B, Adol or Pedi 1998-01-03 Completed Unive rsity of Dosage 00:00:00 [facility] Poliovirus, Live, 1998-01-03 Completed Univers ity of Oral, Trivalent 00:00:[address] [facility] DTaP, Unspecified 1998-01-03 Completed Univers ity of Formulation 00:00:00 [facility] Hep B, Adol or Pedi 1998-01-03 Completed Unive rsity of Dosage 00:00:00 [facility] Poliovirus, Live, 1998-01-03 Completed Univers ity of Oral, Trivalent 00:00:[address] [facility] DTaP, Unspecified 1998-01-03 Completed Univers ity of Formulation 00:00:00 [facility] Hep B, Adol or Pedi 1998-01-03 Completed Unive rsity of Dosage 00:00:00 [facility] Poliovirus, Live, 1998-01-03 Completed Univers ity of Oral, Trivalent 00:00:[address] [facility] DTaP, Unspecified 1998-01-03 Completed Univers ity of Formulation 00:00:00 [facility] Hep B, Adol or Pedi 1998-01-03 Completed Unive rsity of Dosage 00:00:00 [facility] Poliovirus, Live, 1998-01-03 Completed Univers ity of Oral, Trivalent 00:00:[address] [facility] DTaP, Unspecified 1998-01-03 Completed Univers ity of Formulation 00:00:00 [facility] Hep B, Adol or Pedi 1998-01-03 Completed Unive rsity of Dosage 00:00:00 [facility] Poliovirus, Live, 1998-01-03 Completed Univers ity of Oral, Trivalent 00:00:[address] [facility] DTaP, Unspecified 1998-01-03 Completed Univers ity of Formulation 00:00:00 [facility] Hep B, Adol or Pedi 1998-01-03 Completed Unive rsity of Dosage 00:00:00 [facility] Poliovirus, Live, 1998-01-03 Completed Univers ity of Oral, Trivalent 00:00:[address] [facility] DTaP, Unspecified 1998-01-03 Completed Univers ity of Formulation 00:00:00 [facility] Hep B, Adol or Pedi 1998-01-03 Completed Unive rsity of Dosage 00:00:00 [facility] Poliovirus, Live, 1998-01-03 Completed Univers ity of Oral, Trivalent 00:00:[address] [facility] DTaP, Unspecified 1998-01-03 Completed Univers ity of Formulation 00:00:00 [facility] Hep B, Adol or Pedi 1998-01-03 Completed Unive rsity of Dosage 00:00:00 [facility] Poliovirus, Live, 1998-01-03 Completed Univers ity of Oral, Trivalent 00:00:[address] [facility] DTaP, Unspecified 1998-01-03 Completed Univers ity of Formulation 00:00:00 [facility] Hep B, Adol or Pedi 1998-01-03 Completed Unive rsity of Dosage 00:00:00 [facility] Poliovirus, Live, 1998-01-03 Completed Univers ity of Oral, Trivalent 00:00:[address] [facility] DTaP, Unspecified 1998-01-03 Completed Univers ity of Formulation 00:00:00 [facility] Hep B, Adol or Pedi 1998-01-03 Completed Unive rsity of Dosage 00:00:00 [facility] Poliovirus, Live, 1998-01-03 Completed Univers ity of Oral, Trivalent 00:00:[address] [facility] DTaP, Unspecified 1998-01-03 Completed Univers ity of Formulation 00:00:00 [facility] Hep B, Adol or Pedi 1998-01-03 Completed Unive rsity of Dosage 00:00:00 [facility] Poliovirus, Live, 1998-01-03 Completed Univers ity of Oral, Trivalent 00:00:[address] [facility] DTaP, Unspecified 1998-01-03 Completed Univers ity of Formulation 00:00:00 [facility] Hep B, Adol or Pedi 1998-01-03 Completed Unive rsity of Dosage 00:00:00 [facility] Poliovirus, Live, 1998-01-03 Completed Univers ity of Oral, Trivalent 00:00:[address] [facility] DTaP, Unspecified 1998-01-03 Completed Univers ity of Formulation 00:00:00 [facility] Hep B, Adol or Pedi 1998-01-03 Completed Unive rsity of Dosage 00:00:00 [facility] Poliovirus, Live, 1998-01-03 Completed Univers ity of Oral, Trivalent 00:00:00 [facility] DTaP, Unspecified 1998-01-03 Completed Univers ity of Formulation 00:00:00 [facility] Hep B, Adol or Pedi 1998-01-03 Completed Unive rsity of Dosage 00:00:00 [facility] Poliovirus, Live, 1998-01-03 Completed Univers ity of Oral, Trivalent 00:00:[address] [facility] DTaP, Unspecified 1998-01-03 Completed Univers ity of Formulation 00:00:00 [facility] Hep B, Adol or Pedi 1998-01-03 Completed Unive rsity of Dosage 00:00:00 [facility] Poliovirus, Live, 1998-01-03 Completed Univers ity of Oral, Trivalent 00:00:[address] [facility] DTaP, Unspecified 1998-01-03 Completed Univers ity of Formulation 00:00:00 [facility] Hep B, Adol or Pedi 1998-01-03 Completed Unive rsity of Dosage 00:00:00 [facility] Poliovirus, Live, 1998-01-03 Completed Univers ity of Oral, Trivalent 00:00:00 [facility] Hep B, Unspecified 1997-03-28 Completed Univer sity of Formulation 00:00:00 [facility] Hep B, Adol or Pedi 1997-03-28 Completed Unive rsity of Dosage 00:00:00 [facility] MMR 1997-03-28 Completed [facility] 00:00:00 [facility] Hep B, Unspecified 1997-03-28 Completed Univer sity of Formulation 00:00:00 [facility] Hep B, Adol or Pedi 1997-03-28 Completed Unive rsity of Dosage 00:00:00 [facility] MMR 1997-03-28 Completed University of 00:00:00 [facility] Hep B, Unspecified 1997-03-28 Completed Univer sity of Formulation 00:00:00 [facility] Hep B, Adol or Pedi 1997-03-28 Completed Unive rsity of Dosage 00:00:00 [facility] MMR 1997-03-28 Completed University of 00:00:00 [facility] Hep B, Unspecified 1997-03-28 Completed Univer sity of Formulation 00:00:00 [facility] Hep B, Adol or Pedi 1997-03-28 Completed Unive rsity of Dosage 00:00:00 [facility] MMR 1997-03-28 Completed University of 00:00:00 [facility] Hep B, Unspecified 1997-03-28 Completed Univer sity of Formulation 00:00:00 [facility] Hep B, Adol or Pedi 1997-03-28 Completed Unive rsity of Dosage 00:00:00 [facility] MMR 1997-03-28 Completed [facility] of 00:00:00 [facility] Hep B, Unspecified 1997-03-28 Completed Univer sity of Formulation 00:00:00 [facility] Hep B, Adol or Pedi 1997-03-28 Completed Unive rsity of Dosage 00:00:00 [facility] MMR 1997-03-28 Completed [facility] 00:00:00 [facility] Hep B, Unspecified 1997-03-28 Completed Univer sity of Formulation 00:00:00 [facility] Hep B, Adol or Pedi 1997-03-28 Completed Unive rsity of Dosage 00:00:00 [facility] MMR 1997-03-28 Completed [facility] 00:00:00 [facility] Hep B, Unspecified 1997-03-28 Completed Univer sity of Formulation 00:00:00 [facility] Hep B, Adol or Pedi 1997-03-28 Completed Unive rsity of Dosage 00:00:00 [facility] MMR 1997-03-28 Completed [facility] of 00:00:00 [facility] Hep B, Unspecified 1997-03-28 Completed Univer sity of Formulation 00:00:00 [facility] Hep B, Adol or Pedi 1997-03-28 Completed Unive rsity of Dosage 00:00:00 [facility] MMR 1997-03-28 Completed [facility] 00:00:00 [facility] Hep B, Unspecified 1997-03-28 Completed Univer sity of Formulation 00:00:00 [facility] Hep B, Adol or Pedi 1997-03-28 Completed Unive rsity of Dosage 00:00:00 [facility] MMR 1997-03-28 Completed [facility] 00:[facility]:00 [facility] Hep B, Unspecified 1997-03-28 Completed [facility] Formulation 00:00:00 [facility] Hep B, Adol or Pedi 1997-03-28 Completed [facility] Dosage 00:00:00 [facility] MMR 1997-03-28 Completed [facility] 00:00:00 [facility] Hep B, Unspecified 1997-03-28 Completed [facility] Formulation 00:00:00 [facility] Hep B, Adol or Pedi 1997-03-28 Completed [facility] Dosage 00:00:00 [facility] MMR 1997-03-28 Completed [facility] 00:00:00 [facility] Hep B, Unspecified 1997-03-28 Completed [facility] Formulation 00:00:00 [facility] Hep B, Adol or Pedi 1997-03-28 Completed [facility] Dosage 00:00:00 [facility] MMR 1997-03-28 Completed [facility] 00:00:00 [facility] Hep B, Unspecified 1997-03-28 Completed [facility] Formulation 00:00:00 [facility] Hep B, Adol or Pedi 1997-03-28 Completed [facility] Dosage 00:00:00 [facility] MMR 1997-03-28 Completed [facility] 00:00:00 [facility] Hep B, Unspecified 1997-03-28 Completed [facility] Formulation 00:00:00 [facility] Hep B, Adol or Pedi 1997-03-28 Completed [facility] Dosage 00:00:00 [facility] MMR 1997-03-28 Completed [facility] 00:00:00 [facility] Hep B, Unspecified 1997-03-28 Completed [facility] Formulation 00:00:00 [facility] Hep B, Adol or Pedi 1997-03-28 Completed [facility] Dosage 00:00:00 [facility] MMR 1997-03-28 Completed [facility] 00:00:00 [facility] Hep B, Unspecified 1997-03-28 Completed [facility] Formulation 00:00:00 [facility] Hep B, Adol or Pedi 1997-03-28 Completed [facility] Dosage 00:00:00 [facility] MMR 1997-03-28 Completed [facility] 00:00:00 [facility] Hep B, Unspecified 1997-03-28 Completed [facility] Formulation 00:00:00 [facility] Hep B, Adol or Pedi 1997-03-28 Completed [facility] Dosage 00:00:00 [facility] MMR 1997-03-28 Completed [facility] 00:00:00 [facility] Hep B, Unspecified 1997-03-28 Completed [facility] Formulation 00:00:00 [facility] Hep B, Adol or Pedi 1997-03-28 Completed [facility] Dosage 00:00:00 [facility] MMR 1997-03-28 Completed [facility] 00:00:00 [facility] Hep B, Unspecified 1997-03-28 Completed [facility] Formulation 00:00:00 [facility] Hep B, Adol or Pedi 1997-03-28 Completed [facility] Dosage 00:00:00 [facility] MMR 1997-03-28 Completed [facility] 00:00:00 [facility] Hep B, Unspecified 1997-03-28 Completed [facility] Formulation 00:00:00 [facility] Hep B, Adol or Pedi 1997-03-28 Completed [facility] Dosage 00:00:00 [facility] MMR 1997-03-28 Completed [facility] 00:00:00 [facility] Hep B, Unspecified 1997-03-28 Completed [facility] Formulation 00:00:00 [facility] Hep B, Adol or Pedi 1997-03-28 Completed [facility] Dosage 00:00:00 [facility] MMR 1997-03-28 Completed [facility] 00:00:00 [facility] Hep B, Unspecified 1997-03-28 Completed [facility] Formulation 00:00:00 [facility] Hep B, Adol or Pedi 1997-03-28 Completed [facility] Dosage 00:00:00 [facility] MMR 1997-03-28 Completed [facility] 00:00:00 [facility] Hep B, Unspecified 1997-03-28 Completed [facility] Formulation 00:00:00 [facility] Hep B, Adol or Pedi 1997-03-28 Completed [facility] Dosage 00:00:00 [facility] MMR 1997-03-28 Completed [facility] 00:00:00 [facility] Hep B, Unspecified 1997-03-28 Completed [facility] Formulation 00:00:00 [facility] Hep B, Adol or Pedi 1997-03-28 Completed [facility] Dosage 00:00:00 [facility] MMR 1997-03-28 Completed [facility] 00:00:00 [facility] Hep B, Unspecified 1997-03-28 Completed [facility] Formulation 00:00:00 [facility] Hep B, Adol or Pedi 1997-03-28 Completed [facility] Dosage 00:00:00 [facility] MMR 1997-03-28 Completed [facility] 00:00:00 [facility] Hep B, Unspecified 1997-03-28 Completed [facility] Formulation 00:00:00 [facility] Hep B, Adol or Pedi 1997-03-28 Completed [facility] Dosage 00:00:00 [facility] MMR 1997-03-28 Completed [facility] 00:00:00 [facility] Hep B, Unspecified 1997-03-28 Completed [facility] Formulation 00:00:00 [facility] Hep B, Adol or Pedi 1997-03-28 Completed [facility] Dosage 00:00:00 [facility] MMR 1997-03-28 Completed [facility] 00:00:00 [facility] Hep B, Unspecified 1997-03-28 Completed [facility] Formulation 00:00:00 [facility] Hep B, Adol or Pedi 1997-03-28 Completed [facility] Dosage 00:00:00 [facility] MMR 1997-03-28 Completed [facility] 00:00:00 [facility] DTP 1994-05-19 Completed [facility] 00:00:00 [facility] Hib-HbOC 1994-05-19 Completed [facility] 00:00:00 [facility] 1994-05-19 Completed [facility] 00:00:00 [facility] Poliovirus, Live, 1994-05-19 Completed [facility] Oral, Trivalent 00:00:00 [facility] 1994-05-19 Completed [facility] 00:00:00 [facility] Hib-HbOC 1994-05-19 Completed [facility] 00:00:00 [facility] 1994-05-19 Completed [facility] 00:00:00 [facility] Poliovirus, Live, 1994-05-19 Completed [facility] Oral, Trivalent 00:00:00 [facility] 1994-05-19 Completed [facility] 00:00:00 [facility] Hib-HbOC 1994-05-19 Completed [facility] 00:00:00 [facility] 1994-05-19 Completed [facility] 00:00:00 [facility] Poliovirus, Live, 1994-05-19 Completed [facility] Oral, Trivalent 00:00:00 [facility] 1994-05-19 Completed [facility] 00:00:00 [facility] Hib-HbOC 1994-05-19 Completed [facility] 00:00:00 [facility] 1994-05-19 Completed [facility] 00:00:00 [facility] Poliovirus, Live, 1994-05-19 Completed [facility] Oral, Trivalent 00:00:00 [facility] 1994-05-19 Completed [facility] 00:00:00 [facility] Hib-HbOC 1994-05-19 Completed [facility] 00:00:00 [facility] 1994-05-19 Completed [facility] 00:00:00 [facility] Poliovirus, Live, 1994-05-19 Completed [facility] Oral, Trivalent 00:00:00 [facility] 1994-05-19 Completed [facility] 00:00:00 [facility] Hib-HbOC 1994-05-19 Completed [facility] 00:00:00 [facility] 1994-05-19 Completed [facility] 00:00:00 [facility] Poliovirus, Live, 1994-05-19 Completed [facility] Oral, Trivalent 00:00:00 [facility] 1994-05-19 Completed [facility] 00:00:00 [facility] Hib-HbOC 1994-05-19 Completed [facility] 00:00:00 [facility] MMR 1994-05-19 Completed [facility] 00:00:00 [facility] Poliovirus, Live, 1994-05-19 Completed [facility] Oral, Trivalent 00:00:00 [facility] 1994-05-19 Completed [facility] 00:00:00 [facility] Hib-HbOC 1994-05-19 Completed [facility] 00:00:00 [facility] MMR 1994-05-19 Completed [facility] 00:00:00 [facility] Poliovirus, Live, 1994-05-19 Completed [facility] Oral, Trivalent 00:00:00 [facility] 1994-05-19 Completed [facility] 00:00:00 [facility] Hib-HbOC 1994-05-19 Completed [facility] 00:00:00 [facility] 1994-05-19 Completed [facility] 00:00:00 [facility] Poliovirus, Live, 1994-05-19 Completed [facility] Oral, Trivalent 00:00:00 [facility] 1994-05-19 Completed [facility] 00:00:00 [facility] Hib-HbOC 1994-05-19 Completed [facility] 00:00:00 [facility] 1994-05-19 Completed [facility] 00:00:00 [facility] Poliovirus, Live, 1994-05-19 Completed [facility] Oral, Trivalent 00:00:00 [facility] 1994-05-19 Completed [facility] 00:00:00 [facility] Hib-HbOC 1994-05-19 Completed [facility] 00:00:00 [facility] MMR 1994-05-19 Completed [facility] 00:00:00 [facility] Poliovirus, Live, 1994-05-19 Completed [facility] Oral, Trivalent 00:00:00 [facility] 1994-05-19 Completed [facility] 00:00:00 [facility] Hib-HbOC 1994-05-19 Completed [facility] 00:00:00 [facility] MMR 1994-05-19 Completed [facility] 00:00:00 [facility] Poliovirus, Live, 1994-05-19 Completed [facility] Oral, Trivalent 00:00:00 [facility] 1994-05-19 Completed [facility] 00:00:00 [facility] Hib-HbOC 1994-05-19 Completed [facility] 00:00:00 [facility] MMR 1994-05-19 Completed [facility] 00:00:00 [facility] Poliovirus, Live, 1994-05-19 Completed [facility] Oral, Trivalent 00:00:00 [facility] 1994-05-19 Completed [facility] 00:00:00 [facility] Hib-HbOC 1994-05-19 Completed [facility] 00:00:00 [facility] MMR 1994-05-19 Completed [facility] 00:00:00 [facility] Poliovirus, Live, 1994-05-19 Completed [facility] Oral, Trivalent 00:00:00 [facility] 1994-05-19 Completed [facility] 00:00:00 [facility] Hib-HbOC 1994-05-19 Completed [facility] 00:00:00 [facility] 1994-05-19 Completed [facility] 00:00:00 [facility] Poliovirus, Live, 1994-05-19 Completed [facility] Oral, Trivalent 00:00:00 [facility] 1994-05-19 Completed [facility] 00:00:00 [facility] Hib-HbOC 1994-05-19 Completed [facility] 00:00:00 [facility] MMR 1994-05-19 Completed [facility] 00:00:00 [facility] Poliovirus, Live, 1994-05-19 Completed [facility] Oral, Trivalent 00:00:00 [facility] 1994-05-19 Completed [facility] 00:00:00 [facility] Hib-HbOC 1994-05-19 Completed [facility] 00:00:00 [facility] MMR 1994-05-19 Completed [facility] 00:00:00 [facility] Poliovirus, Live, 1994-05-19 Completed [facility] Oral, Trivalent 00:00:00 [facility] 1994-05-19 Completed [facility] 00:00:00 [facility] Hib-HbOC 1994-05-19 Completed [facility] 00:00:00 [facility] MMR 1994-05-19 Completed [facility] 00:00:00 [facility] Poliovirus, Live, 1994-05-19 Completed [facility] Oral, Trivalent 00:00:00 [facility] 1994-05-19 Completed [facility] 00:00:00 [facility] Hib-HbOC 1994-05-19 Completed [facility] 00:00:00 [facility] MMR 1994-05-19 Completed [facility] 00:00:00 [facility] Poliovirus, Live, 1994-05-19 Completed [facility] Oral, Trivalent 00:00:00 [facility] 1994-05-19 Completed [facility] 00:00:00 [facility] Hib-HbOC 1994-05-19 Completed [facility] 00:00:00 [facility] MMR 1994-05-19 Completed [facility] 00:00:00 [facility] Poliovirus, Live, 1994-05-19 Completed [facility] Oral, Trivalent 00:00:00 [facility] 1994-05-19 Completed [facility] 00:00:00 [facility] Hib-HbOC 1994-05-19 Completed [facility] 00:00:00 [facility] MMR 1994-05-19 Completed [facility] 00:00:00 [facility] Poliovirus, Live, 1994-05-19 Completed [facility] Oral, Trivalent 00:00:00 [facility] 1994-05-19 Completed [facility] 00:00:00 [facility] Hib-HbOC 1994-05-19 Completed [facility] 00:00:00 [facility] MMR 1994-05-19 Completed [facility] 00:00:00 [facility] Poliovirus, Live, 1994-05-19 Completed [facility] Oral, Trivalent 00:00:00 [facility] 1994-05-19 Completed [facility] 00:00:00 [facility] Hib-HbOC 1994-05-19 Completed [facility] 00:00:00 [facility] MMR 1994-05-19 Completed [facility] 00:00:00 [facility] Poliovirus, Live, 1994-05-19 Completed [facility] Oral, Trivalent 00:00:00 [facility] 1994-05-19 Completed [facility] 00:00:00 [facility] Hib-HbOC 1994-05-19 Completed [facility] 00:00:00 [facility] MMR 1994-05-19 Completed [facility] 00:00:00 [facility] Poliovirus, Live, 1994-05-19 Completed [facility] Oral, Trivalent 00:00:00 [facility] 1994-05-19 Completed [facility] 00:00:00 [facility] Hib-HbOC 1994-05-19 Completed [facility] 00:00:00 [facility] MMR 1994-05-19 Completed [facility] 00:00:00 [facility] Poliovirus, Live, 1994-05-19 Completed [facility] Oral, Trivalent 00:00:00 [facility] DT 1994-05-19 Completed [facility] 00:00:00 [facility] Hib-HbOC 1994-05-19 Completed [facility] 00:00:00 [facility] MMR 1994-05-19 Completed [facility] 00:00:00 [facility] Poliovirus, Live, 1994-05-19 Completed [facility] Oral, Trivalent 00:00:00 [facility] 1994-05-19 Completed [facility] 00:00:00 [facility] Hib-HbOC 1994-05-19 Completed [facility] 00:00:00 [facility] MMR 1994-05-19 Completed [facility] 00:00:00 [facility] Poliovirus, Live, 1994-05-19 Completed [facility] Oral, Trivalent 00:00:00 [facility] 1994-05-19 Completed [facility] 00:00:00 [facility] Hib-HbOC 1994-05-19 Completed [facility] 00:00:00 [facility] MMR 1994-05-19 Completed [facility] 00:00:00 [facility] Poliovirus, Live, 1994-05-19 Completed [facility] Oral, Trivalent 00:00:00 [facility] DT 1994-05-19 Completed [facility] 00:00:00 [facility] Hib-HbOC 1994-05-19 Completed [facility] 00:00:00 [facility] MMR 1994-05-19 Completed [facility] 00:00:00 [facility] Poliovirus, Live, 1994-05-19 Completed [facility] Oral, Trivalent 00:00:00 [facility] Heamophilus 1994-05-09 Completed [facility] of Influenza B 00:00:00 [facility] Heamophilus 1994-05-09 Completed [facility] Influenza B 00:00:00 [facility] Heamophilus 1994-05-09 Completed [facility] Influenza B 00:00:00 [facility] Heamophilus 1994-05-09 Completed [facility] Influenza B 00:00:00 [facility] 1994-05-09 Completed [facility] Influenza B 00:00:00 [facility] 1994-05-09 Completed [facility] Influenza B 00:00:00 [facility] 1994-05-09 Completed [facility] Influenza B 00:00:00 [facility] 1994-05-09 Completed [facility] Influenza B 00:00:00 [facility] 1994-05-09 Completed [facility] Influenza B 00:00:00 [facility] 1994-05-09 Completed [facility] Influenza B 00:00:00 [facility] 1994-05-09 Completed [facility] Influenza B 00:00:00 [facility] 1994-05-09 Completed [facility] Influenza B 00:00:00 [facility] 1994-05-09 Completed [facility] Influenza B 00:00:00 [facility] 1994-05-09 Completed [facility] Influenza B 00:00:00 [facility] 1994-05-09 Completed [facility] Influenza B 00:00:00 [facility] 1994-05-09 Completed [facility] Influenza B 00:00:00 [facility] 1994-05-09 Completed [facility] Influenza B 00:00:00 [facility] 1994-05-09 Completed [facility] Influenza B 00:00:00 [facility] 1994-05-09 Completed [facility] Influenza B 00:00:00 [facility] 1994-05-09 Completed [facility] Influenza B 00:00:00 [facility] 1994-05-09 Completed [facility] Influenza B 00:00:00 [facility] 1994-05-09 Completed [facility] Influenza B 00:00:00 [facility] 1994-05-09 Completed [facility] Influenza B 00:00:00 [facility] 1994-05-09 Completed [facility] Influenza B 00:00:00 [facility] 1994-05-09 Completed [facility] Influenza B 00:00:00 [facility] 1994-05-09 Completed [facility] Influenza B 00:00:00 [facility] 1994-05-09 Completed [facility] Influenza B 00:00:00 [facility] 1994-05-09 Completed [facility] Influenza B 00:00:00 [facility] Hep B, Unspecified 1993-04-29 Completed [facility] Formulation 00:00:00 [facility] Hep B, Adol or Pedi 1993-04-29 Completed [facility] of Dosage 00:00:00 [facility] Hep B, Unspecified 1993-04-29 Completed [facility] Formulation 00:00:00 [facility] Hep B, Adol or Pedi 1993-04-29 Completed [facility] of Dosage 00:00:00 [facility] Hep B, Unspecified 1993-04-29 Completed [facility] Formulation 00:00:00 [facility] Hep B, Adol or Pedi 1993-04-29 Completed [facility] of Dosage 00:00:00 [facility] Hep B, Unspecified 1993-04-29 Completed [facility] Formulation 00:00:00 [facility] Hep B, Adol or Pedi 1993-04-29 Completed [facility] of Dosage 00:00:00 [facility] Hep B, Unspecified 1993-04-29 Completed [facility] Formulation 00:00:00 [facility] Hep B, Adol or Pedi 1993-04-29 Completed [facility] of Dosage 00:00:00 [facility] Hep B, Unspecified 1993-04-29 Completed [facility] Formulation 00:00:00 [facility] Hep B, Adol or Pedi 1993-04-29 Completed [facility] of Dosage 00:00:00 [facility] Hep B, Unspecified 1993-04-29 Completed [facility] Formulation 00:00:00 [facility] Hep B, Adol or Pedi 1993-04-29 Completed [facility] of Dosage 00:00:00 [facility] Hep B, Unspecified 1993-04-29 Completed [facility] Formulation 00:00:00 [facility] Hep B, Adol or Pedi 1993-04-29 Completed [facility] of Dosage 00:00:00 [facility] Hep B, Unspecified 1993-04-29 Completed [...] 1993-04-29 Completed [facility] Dosage 00:00:00 [facility] Hep B, Unspecified 1993-04-29 Completed [facility] Formulation 00:00:00 [facility] Hep B, Adol or Pedi 1993-04-29 Completed [facility] of Dosage 00:00:00 [facility] DTP 1992 Completed [facility] 00:00:00 [facility] Heamophilus 1992 Completed [facility] Influenza B 00:00:00 [facility] Hib-HbOC 1992 Completed [facility] 00:00:00 [facility] DTP 1992 Completed [facility] 00:00:00 [facility] 1992 Completed [facility] Influenza B 00:00:00 [facility] Hib-HbOC 1992 Completed [facility] 00:00:00 [facility] DTP 1992 Completed [facility] 00:00:00 [facility]am[facility] 1992 Completed [facility] Influenza B 00:00:00 [facility] Hib-HbOC 1992 Completed [facility] 00:00:00 [facility] DTP 1992 Completed [facility] 00:00:00 [facility]am[facility] 1992 Completed [facility] Influenza B 00:00:00 [facility] Hib-HbOC 1992 Completed [facility] 00:00:00 [facility] DTP 1992 Completed [facility] 00:00:00 [facility] 1992 Completed [facility] Influenza B 00:00:00 [facility] Hib-HbOC 1992 Completed [facility] 00:00:00 [facility] DTP 1992 Completed [facility] 00:00:00 [facility] Heamophilus 1992 Completed [facility] Influenza B 00:00:00 [facility] Hib-HbOC 1992 Completed [facility] 00:00:00 [facility] DTP 1992 Completed [facility] 00:00:00 [facility] Heamophilus 1992 Completed [facility] Influenza B 00:00:00 [facility] Hib-HbOC 1992 Completed [facility] 00:00:00 [facility] DTP 1992 Completed [facility] 00:00:00 [facility] Heamophilus 1992 Completed [facility] Influenza B 00:00:00 [facility] Hib-HbOC 1992 Completed [facility] 00:00:00 [facility] DTP 1992 Completed [facility] 00:00:00 [facility] Heamophilus 1992 Completed [facility] Influenza B 00:00:00 [facility] Hib-HbOC 1992 Completed [facility] 00:00:00 [facility] DTP 1992 Completed [facility] 00:00:00 [facility] Heamophilus 1992 Completed [facility] Influenza B 00:00:00 [facility] Hib-HbOC 1992 Completed [facility] 00:00:00 [facility] DTP 1992 Completed [facility] 00:00:00 [facility] Heamophil[facility] 1992 Completed [facility] Influenza B 00:00:00 [facility] Hib-HbOC 1992 Completed [facility] 00:00:00 [facility] DTP 1992 Completed [facility] 00:00:00 [facility]amophil[facility] 1992 Completed [facility] Influenza B 00:00:00 [facility] Hib-HbOC 1992 Completed [facility] 00:00:00 [facility] DTP 1992 Completed [facility] 00:00:00 [facility]am[facility] 1992 Completed [facility] Influenza B 00:00:00 [facility] Hib-HbOC 1992 Completed [facility] 00:00:00 [facility] DTP 1992 Completed [facility] 00:00:00 [facility] Heamophilus 1992 Completed [facility] Influenza B 00:00:00 [facility] Hib-HbOC 1992 Completed [facility] 00:00:00 [facility] DTP 1992 Completed [facility] 00:00:00 [facility] Heamophilus 1992 Completed [facility] Influenza B 00:00:00 [facility] Hib-HbOC 1992 Completed [facility] 00:00:00 [facility] DTP 1992 Completed [facility] 00:00:00 [facility] Heamophilus 1992 Completed [facility] Influenza B 00:00:00 [facility] Hib-HbOC 1992 Completed [facility] 00:00:00 [facility] DTP 1992 Completed [facility] 00:00:00 [facility] Heamophilus 1992 Completed [facility] Influenza B 00:00:00 [facility] Hib-HbOC 1992 Completed [facility] 00:00:00 [facility] DTP 1992 Completed [facility] 00:00:00 [facility] Heamophilus 1992 Completed [facility] Influenza B 00:00:00 [facility] Hib-HbOC 1992 Completed [facility] 00:00:00 [facility] DTP 1992 Completed [facility] 00:00:00 [facility] Heamophilus 1992 Completed [facility] Influenza B 00:00:00 [facility] Hib-HbOC 1992 Completed [facility] 00:00:00 [facility] DTP 1992 Completed [facility] 00:00:00 [facility] Heamophilus 1992 Completed [facility] Influenza B 00:00:00 [facility] Hib-HbOC 1992 Completed [facility] 00:00:00 [facility] DTP 1992 Completed [facility] 00:00:00 [facility] Heamophilus 1992 Completed [facility] Influenza B 00:00:00 [facility] Hib-HbOC 1992 Completed [facility] 00:00:00 [facility] DTP 1992 Completed [facility] 00:00:00 [facility] Heamophilus 1992 Completed [facility] Influenza B 00:00:00 [facility] Hib-HbOC 1992 Completed [facility] 00:00:00 [facility] DTP 1992 Completed [facility] 00:00:00 [facility] Heamophilus 1992 Completed [facility] Influenza B 00:00:00 [facility] Hib-HbOC 1992 Completed [facility] 00:00:00 [facility] DTP 1992 Completed [facility] 00:00:00 [facility] Heamophilus 1992 Completed [facility] Influenza B 00:00:00 [facility] Hib-HbOC 1992 Completed [facility] 00:00:00 [facility] DTP 1992 Completed [facility] 00:00:00 [facility] Heamophilus 1992 Completed [facility] Influenza B 00:00:00 [facility] Hib-HbOC 1992 Completed [facility] 00:00:00 [facility] DTP 1992 Completed [facility] 00:00:00 [facility] Heamophilus 1992 Completed [facility] Influenza B 00:00:00 [facility] Hib-HbOC 1992 Completed [facility] 00:00:00 [facility] DTP 1992 Completed [facility] 00:00:00 [facility] Heamophilus 1992 Completed [facility] Influenza B 00:00:00 [facility] Hib-HbOC 1992 Completed [facility] 00:00:00 [facility] DTP 1992 Completed [facility] 00:00:00 [facility] Heamophilus 1992 Completed [facility] Influenza B 00:00:00 [facility] Hib-HbOC 1992 Completed [facility] 00:00:00 [facility] DTP 1992 Completed [facility] 00:00:00 [facility] Heamophilus 1992 Completed [facility] Influenza B 00:00:00 [facility] Hib-HbOC 1992 Completed [facility] 00:00:00 [facility] DTP 1992 Completed [facility] 00:00:00 [facility] Heamophilus 1992 Completed [facility] Influenza B 00:00:00 [facility] Hib-HbOC 1992 Completed [facility] 00:00:00 [facility] Poliovirus, Live, 1992 Completed [facility] Oral, Trivalent 00:00:00 [facility] DT 1992 Completed [facility] 00:00:00 [facility] Heamophilus 1992 Completed [facility] Influenza B 00:00:00 [facility] Hib-HbOC 1992 Completed [facility] 00:00:00 [facility] Poliovirus, Live, 1992 Completed [facility] Oral, Trivalent 00:00:00 [facility] 1992 Completed [facility] 00:00:00 [facility] Heamophilus 1992 Completed [facility] Influenza B 00:00:00 [facility] Hib-HbOC 1992 Completed [facility] 00:00:00 [facility] Poliovirus, Live, 1992 Completed [facility] of Oral, Trivalent 00:00:00 [facility] DT 1992 Completed [facility] 00:00:00 [facility] Heamophilus 1992 Completed [facility] Influenza B 00:00:00 [facility] Hib-HbOC 1992 Completed [facility] of 00:00:00 [facility] Poliovirus, Live, 1992 Completed [facility] Oral, Trivalent 00:00:00 [facility] DT 1992 Completed [facility] 00:00:00 [facility] Heamophilus 1992 Completed [facility] Influenza B 00:00:00 [facility] Hib-HbOC 1992 Completed [facility] of 00:00:00 [facility] Poliovirus, Live, 1992 Completed [facility] of Oral, Trivalent 00:00:00 [facility] 1992 Completed [facility] of 00:00:00 [facility] Heamophilus 1992 Completed [facility] Influenza B 00:00:00 [facility] Hib-HbOC 1992 Completed [facility] of 00:00:00 [facility] Poliovirus, Live, 1992 Completed [facility] Oral, Trivalent 00:00:00 [facility] DT 1992 Completed [facility] of 00:00:00 [facility] Heamophilus 1992 Completed [facility] Influenza B 00:00:00 [facility] Hib-HbOC 1992 Completed [facility] of 00:00:00 [facility] Poliovirus, Live, 1992 Completed [facility] of Oral, Trivalent 00:00:00 [facility] DT 1992 Completed [facility] 00:00:00 [facility] Heamophilus 1992 Completed [facility] Influenza B 00:00:00 [facility] Hib-HbOC 1992 Completed [facility] of 00:00:00 [facility] Poliovirus, Live, 1992 Completed [facility] Oral, Trivalent 00:00:00 [facility] DT 1992 Completed [facility] 00:00:00 [facility] Heamophilus 1992 Completed [facility] Influenza B 00:00:00 [facility] Hib-HbOC 1992 Completed [facility] 00:00:00 [facility] Poliovirus, Live, 1992 Completed [facility] Oral, Trivalent 00:00:00 [facility] 1992 Completed [facility] of 00:00:00 [facility] Heamophilus 1992 Completed [facility] Influenza B 00:00:00 [facility] Hib-HbOC 1992 Completed [facility] of 00:00:00 [facility] Poliovirus, Live, 1992 Completed [facility] Oral, Trivalent 00:00:00 [facility] 1992 Completed [facility] 00:00:00 [facility] Heamophilus 1992 Completed [facility] Influenza B 00:00:00 [facility] Hib-HbOC 1992 Completed [facility] 00:00:00 [facility] Poliovirus, Live, 1992 Completed [facility] Oral, Trivalent 00:00:00 [facility] 1992 Completed [facility] 00:00:00 [facility] Heamophilus 1992 Completed [facility] Influenza B 00:00:00 [facility] Hib-HbO 1992 Completed [facility] 00:00:00 [facility] Poliovirus, Live, 1992 Completed [facility] Oral, Trivalent 00:00:00 [facility] 1992 Completed [facility] 00:00:00 [facility] Heamophilus 1992 Completed [facility] Influenza B 00:00:00 [facility] Hib-HbOC 1992 Completed [facility] of 00:00:00 [facility] Poliovirus, Live, 1992 Completed [facility] of Oral, Trivalent 00:00:00 [facility] DT 1992 Completed [facility] 00:00:00 [facility] Heamophilus 1992 Completed [facility] Influenza B 00:00:00 [facility] Hib-HbOC 1992 Completed [facility] 00:00:00 [facility] Poliovirus, Live, 1992 Completed [facility] of Oral, Trivalent 00:00:00 [facility] 1992 Completed [facility] 00:00:00 [facility] Heamophilus 1992 Completed [facility] Influenza B 00:00:00 [facility] Hib-HbOC 1992 Completed [facility] 00:00:00 [facility] Poliovirus, Live, 1992 Completed [facility] of Oral, Trivalent 00:00:00 [facility] 1992 Completed [facility] 00:00:00 [facility] Heamophilus 1992 Completed [facility] Influenza B 00:00:00 [facility] Hib-HbOC 1992 Completed [facility] 00:00:00 [facility] Poliovirus, Live, 1992 Completed [facility] of Oral, Trivalent 00:00:00 [facility] 1992 Completed [facility] 00:00:00 [facility] Heamophilus 1992 Completed [facility] Influenza B 00:00:00 [facility] Hib-HbOC 1992 Completed [facility] 00:00:00 [facility] Poliovirus, Live, 1992 Completed [facility] of Oral, Trivalent 00:00:00 [facility] 1992 Completed [facility] 00:00:00 [facility] Heamophilus 1992 Completed [facility] Influenza B 00:00:00 [facility] Hib-HbOC 1992 Completed [facility] 00:00:00 [facility] Poliovirus, Live, 1992 Completed [facility] of Oral, Trivalent 00:00:00 [facility] 1992 Completed [facility] 00:00:00 [facility] Heamophilus 1992 Completed [facility] Influenza B 00:00:00 [facility] Hib-HbOC 1992 Completed [facility] 00:00:00 [facility] Poliovirus, Live, 1992 Completed [facility] Oral, Trivalent 00:00:00 [facility] 1992 Completed [facility] 00:00:00 [facility] Heamophilus 1992 Completed [facility] Influenza B 00:00:00 [facility] Hib-HbOC 1992 Completed [facility] 00:00:00 [facility] Poliovirus, Live, 1992 Completed [facility] of Oral, Trivalent 00:00:00 [facility] 1992 Completed [facility] 00:00:00 [facility] Heamophilus 1992 Completed [facility] Influenza B 00:00:00 [facility] Hib-HbOC 1992 Completed [facility] 00:00:00 [facility] Poliovirus, Live, 1992 Completed [facility] Oral, Trivalent 00:00:00 [facility] 1992 Completed [facility] 00:00:00 [facility] Heamophilus 1992 Completed [facility] Influenza B 00:00:00 [facility] Hib-HbOC 1992 Completed [facility] 00:00:00 [facility] Poliovirus, Live, 1992 Completed [facility] of Oral, Trivalent 00:00:00 [facility] 1992 Completed [facility] 00:00:00 [facility] Heamophilus 1992 Completed [facility] Influenza B 00:00:00 [facility] Hib-HbOC 1992 Completed [facility] 00:00:00 [facility] Poliovirus, Live, 1992 Completed [facility] Oral, Trivalent 00:00:00 [facility] 1992 Completed [facility] Influenza B 00:00:00 [facility] Hib-HbOC 1992 Completed [facility] 00:00:00 [facility] Poliovirus, Live, 1992 Completed [facility] of Oral, Trivalent 00:00:00 [facility] DT 1992 Completed [facility] 00:00:00 [facility] Heamophilus 1992 Completed [facility] Influenza B 00:00:00 [facility] Hib-HbOC 1992 Completed [facility] 00:00:00 [facility] Poliovirus, Live, 1992 Completed [facility] Oral, Trivalent 00:00:00 [facility] 1992 Completed [facility] 00:00:00 [facility] Heamophilus 1992 Completed [facility] Influenza B 00:00:00 [facility] Hib-HbOC 1992 Completed [facility] 00:00:00 [facility] Poliovirus, Live, 1992 Completed [facility] of Oral, Trivalent 00:00:00 [facility] 1992 Completed [facility] 00:00:00 [facility] Heamophilus 1992 Completed [facility] Influenza B 00:00:00 [facility] Hib-HbOC 1992 Completed [facility] 00:00:00 [facility] Poliovirus, Live, 1992 Completed [facility] Oral, Trivalent 00:00:00 [facility] 1992 Completed [facility] 00:00:00 [facility] Heamophilus 1992 Completed [facility] Influenza B 00:00:00 [facility] Hib-HbOC 1992 Completed [facility] 00:00:00 [facility] Poliovirus, Live, 1992 Completed [facility] of Oral, Trivalent 00:00:00 [facility] 1992 Completed [facility] 00:00:00 [facility] Heamophilus 1992 Completed [facility] Influenza B 00:00:00 [facility] Hib-HbO 1992 Completed [facility] 00:00:00 [facility] Poliovirus, Live, 1992 Completed [facility] Oral, Trivalent 00:00:00 [facility] 1992 Completed [facility] 00:00:00 [facility] Heamophilus 1992 Completed [facility] Influenza B 00:00:00 [facility] Hib-HbOC 1992 Completed [facility] 00:00:00 [facility] Poliovirus, Live, 1992 Completed [facility] of Oral, Trivalent 00:00:00 [facility] 1992 Completed [facility] 00:00:00 [facility] Heamophilus 1992 Completed [facility] Influenza B 00:00:00 [facility] Hib-HbOC 1992 Completed [facility] 00:00:00 [facility] Poliovirus, Live, 1992 Completed [facility] of Oral, Trivalent 00:00:00 [facility] 1992 Completed [facility] 00:00:00 [facility] Heamophilus 1992 Completed [facility] Influenza B 00:00:00 [facility] Hib-HbOC 1992 Completed [facility] 00:00:00 [facility] Poliovirus, Live, 1992 Completed [facility] of Oral, Trivalent 00:00:00 [facility] 1992 Completed [facility] 00:00:00 [facility] Heamophilus 1992 Completed [facility] Influenza B 00:00:00 [facility] Hib-HbOC 1992 Completed [facility] 00:00:00 [facility] Poliovirus, Live, 1992 Completed [facility] of Oral, Trivalent 00:00:00 [facility] 1992 Completed [facility] Influenza B 00:00:00 [facility] Hib-HbO 1992 Completed [facility] 00:00:00 [facility] Poliovirus, Live, 1992 Completed [facility] of Oral, Trivalent 00:00:00 [facility] 1992 Completed [facility] Influenza B 00:00:00 [facility] Hib-HbO 1992 Completed [facility] 00:00:00 [facility] Poliovirus, Live, 1992 Completed [facility] of Oral, Trivalent 00:00:00 [facility] 1992 Completed [facility] 00:00:00 [facility] Heamophilus 1992 Completed [facility] Influenza B 00:00:00 [facility] Hib-HbOC 1992 Completed [facility] 00:00:00 [facility] Poliovirus, Live, 1992 Completed [facility] of Oral, Trivalent 00:00:00 [facility] 1992 Completed [facility] 00:00:00 [facility] Heamophilus 1992 Completed [facility] Influenza B 00:00:00 [facility] Hib-HbOC 1992 Completed [facility] 00:00:00 [facility] Poliovirus, Live, 1992 Completed [facility] of Oral, Trivalent 00:00:00 [facility] DT 1992 Completed [facility] 00:00:00 [facility] Heamophilus 1992 Completed [facility] Influenza B 00:00:00 [facility] Hib-HbOC 1992 Completed [facility] 00:00:00 [facility] Poliovirus, Live, 1992 Completed [facility] of Oral, Trivalent 00:00:00 [facility] DT 1992 Completed [facility] 00:00:00 [facility] Heamophilus 1992 Completed [facility] Influenza B 00:00:00 [facility] Hib-HbOC 1992 Completed [facility] 00:00:00 [facility] Poliovirus, Live, 1992 Completed [facility] of Oral, Trivalent 00:00:00 [facility] 1992 Completed [facility] Influenza B 00:00:00 [facility] Hib-HbOC 1992 Completed [facility] 00:00:00 [facility] Poliovirus, Live, 1992 Completed [facility] of Oral, Trivalent 00:00:00 [facility] DT 1992 Completed [facility] Influenza B 00:00:00 [facility] Hib-HbOC 1992 Completed [facility] 00:00:00 [facility] Poliovirus, Live, 1992 Completed [facility] of Oral, Trivalent 00:00:00 [facility] 1992 Completed [facility] 00:00:00 [facility] Heamophilus 1992 Completed [facility] Influenza B 00:00:00 [facility] Hib-HbOC 1992 Completed [facility] 00:00:00 [facility] Poliovirus, Live, 1992 Completed [facility] of Oral, Trivalent 00:00:00 [facility] 1992 Completed [facility] Influenza B 00:00:00 [facility] Hib-HbOC 1992 Completed [facility] 00:00:00 [facility] Poliovirus, Live, 1992 Completed [facility] of Oral, Trivalent 00:00:00 [facility] 1992 Completed [facility] 00:00:00 [facility] Heamophilus 1992 Completed [facility] of Influenza B 00:00:00 [facility] Hib-HbOC 1992 Completed [facility] 00:00:00 [facility] Poliovirus, Live, 1992 Completed [facility] of Oral, Trivalent 00:00:00 [facility] 1992 Completed [facility] 00:00:00 [facility] Heamophilus 1992 Completed [facility] of Influenza B 00:00:00 [facility] Hib-HbOC 1992 Completed [facility] 00:00:00 [facility] Poliovirus, Live, 1992 Completed [facility] of Oral, Trivalent 00:00:00 [facility] DT 1992 Completed [facility] Influenza B 00:00:00 [facility] Hib-HbOC 1992 Completed [facility] 00:00:00 [facility] Poliovirus, Live, 1992 Completed [facility] of Oral, Trivalent 00:00:00 [facility] 1992 Completed [facility] 00:00:00 [facility] Heamophilus 1992 Completed [facility] of Influenza B 00:00:00 [facility] Hib-HbOC 1992 Completed [facility] 00:00:00 [facility] Poliovirus, Live, 1992 Completed [facility] of Oral, Trivalent 00:00:00 [facility] DT 1992 Completed [facility] 00:00:00 [facility] Heamophilus 1992 Completed [facility] of Influenza B 00:00:00 [facility] Hib-HbOC 1992 Completed [facility] 00:00:00 [facility] Poliovirus, Live, 1992 Completed [facility] of Oral, Trivalent 00:00:00 [facility] 1992 Completed [facility] 00:00:00 [facility] Heamophilus 1992 Completed [facility] of Influenza B 00:00:00 [facility] Hib-HbOC 1992 Completed [facility] 00:00:00 [facility] Poliovirus, Live, 1992 Completed [facility] of Oral, Trivalent 00:00:00 [facility] 1992 Completed [facility] 00:00:00 [facility] Heamophilus 1992 Completed [facility] of Influenza B 00:00:00 [facility] Hib-HbOC 1992 Completed [facility] 00:00:00 [facility] Poliovirus, Live, 1992 Completed [facility] of Oral, Trivalent 00:00:00 [facility] 1992 Completed [facility] Influenza B 00:00:00 [facility] Hib-HbOC 1992 Completed [facility] 00:00:00 [facility] Poliovirus, Live, 1992 Completed [facility] of Oral, Trivalent 00:00:00 [facility] 1992 Completed [facility] Influenza B 00:00:00 [facility] Hib-HbO 1992 Completed [facility] 00:00:00 [facility] Poliovirus, Live, 1992 Completed [facility] of Oral, Trivalent 00:00:00 [facility] 1992 Completed [facility] 00:00:00 [facility] Heamophilus 1992 Completed [facility] of Influenza B 00:00:00 [facility] Hib-HbOC 1992 Completed [facility] 00:00:00 [facility] Poliovirus, Live, 1992 Completed [facility] of Oral, Trivalent 00:00:00 [facility] 1992 Completed [facility] 00:00:00 [facility] Heamophilus 1992 Completed [facility] of Influenza B 00:00:00 [facility] Hib-HbOC 1992 Completed [facility] 00:00:00 [facility] Poliovirus, Live, 1992 Completed [facility] of Oral, Trivalent 00:00:00 [facility] DT 1992 Completed [facility] 00:00:00 [facility] Heamophilus 1992 Completed [facility] of Influenza B 00:00:00 [facility] Hib-HbOC 1992 Completed [facility] 00:00:00 [facility] Poliovirus, Live, 1992 Completed [facility] of Oral, Trivalent 00:00:00 [facility] DT 1992 Completed [facility] 00:00:00 [facility] Heamophilus 1992 Completed [facility] of Influenza B 00:00:00 [facility] Hib-HbOC 1992 Completed [facility] 00:00:00 [facility] Poliovirus, Live, 1992 Completed [facility] of Oral, Trivalent 00:00:00 [facility] 1992 Completed [facility] Influenza B 00:00:00 [facility] Hib-HbOC 1992 Completed [facility] 00:00:00 [facility] Poliovirus, Live, 1992 Completed [facility] of Oral, Trivalent 00:00:00 [facility] 1992 Completed [facility] Influenza B 00:00:00 [facility] Hib-HbOC 1992 Completed [facility] of 00:00:00 [facility] Poliovirus, Live, 1992 Completed [facility] of Oral, Trivalent 00:00:00 [facility] PFIZER COVID-19 MRNA Unknown Completed [facility] PFIZER COVID-19 MRNA Unknown Completed [facility] PFIZER COVID-19 MRNA Unknown Completed [facility] PFIZER COVID-19 MRNA Unknown Completed [facility] PFIZER COVID-19 MRNA Unknown Completed [facility] VACCINATION [facility] PFIZER COVID-19 MRNA Unknown Completed [facility] PFIZER COVID-19 MRNA Unknown Completed [facility] PFIZER COVID-19 MRNA Unknown Completed [facility] PFIZER COVID-19 MRNA Unknown Completed [facility] PFIZER COVID-19 MRNA Unknown Completed [facility] PFIZER COVID-19 MRNA Unknown Completed [facility] PFIZER COVID-19 MRNA Unknown Completed [facility] PFIZER COVID-19 MRNA Unknown Completed [facility] PFIZER COVID-19 MRNA Unknown Completed [facility] PFIZER COVID-19 MRNA Unknown Completed [facility] PFIZER COVID-19 MRNA Unknown Completed [facility] PFIZER COVID-19 MRNA Unknown Completed [facility] PFIZER COVID-19 MRNA Unknown Completed [facility] SARS-COV-2 COVID-19 Unknown Completed Unive rsity of PFIZER VACCINE [facility] SARS-COV-2 COVID-19 Unknown Completed Unive rsity of PFIZER VACCINE [facility] DTP Unknown Completed [facility] DTP Unknown Completed [facility] DTP Unknown Completed [facility] DTP Unknown Completed [facility] DTaP, Unspecified Unknown Completed Univers ity of Formulation [facility] Influenza Virus Unknown Completed Universit y of Vaccine Quad .5 mL [facility] 6+ MO Branch (FLUZONE/FLULAVAL/FL UARIX) Hep B, Unspecified Unknown Completed Univer sity of Formulation [facility] HEPATITIS A Unknown Completed [facility] HEPATITIS A Unknown Completed [facility] Hep B, Unspecified Unknown Completed Univer sity of Formulation [facility] Hep B, Adol or Pedi Unknown Completed Unive rsity of Dosage [facility] Hep B, Adol or Pedi Unknown Completed Unive rsity of Dosage [facility] Hep B, Adol or Pedi Unknown Completed Unive rsity of Dosage [facility] Heamophilus Unknown Completed [facility] Influenza B [facility] Heamophilus Unknown Completed [facility] Influenza B [facility] Heamophilus Unknown Completed [facility] Influenza B [facility] Heamophilus Unknown Completed [facility] Influenza B [facility] Hib-HbOC Unknown Completed [facility] Hib-HbOC Unknown Completed [facility] Hib-HbOC Unknown Completed [facility] Hib-HbOC Unknown Completed [facility] HPV Unknown Completed [facility] HPV Unknown Completed [facility] HPV Unknown Completed [facility] Meningococcal Unknown Completed [facility] (groups A, C, Y and Branc h W-135) conjugate vaccine (MCV4P) MMR Unknown Completed [facility] MMR Unknown Completed [facility] Poliovirus, Live, Unknown Completed Univers ity of Oral, Trivalent [facility] Poliovirus, Live, Unknown Completed Univers [facility] of Oral, Trivalent [facility] Poliovirus, Live, Unknown Completed Univers [facility]y of Oral, Trivalent [facility] Poliovirus, Live, Unknown Completed Univers [facility] of Oral, Trivalent [facility] Tetanus/Diptheria Unknown Completed Univers ity [facility] TDAP Unknown Completed [facility] Varicella Unknown Completed [facility] (varivax)(chicken [place] M edical pox) Branch Varicella Unknown Completed [facility] (varivax)(chicken [place] M edical pox) Branch SARS-COV-2 COVID-19 Unknown Completed Unive rsity of PFIZER VACCINE [facility] SARS-COV-2 COVID-19 Unknown Completed Unive rsity of PFIZER VACCINE [facility] DTP Unknown Completed [facility] DTP Unknown Completed [facility] DTP Unknown Completed [facility] DTP Unknown Completed [facility] DTaP, Unspecified Unknown Completed Univers ity of Formulation [facility] Influenza Virus Unknown Completed Universit y of Vaccine Quad .5 mL [facility] 6+ MO Branch (FLUZONE/FLULAVAL/FL UARIX) Hep B, Unspecified Unknown Completed Univer sity of [facility] HEPATITIS A Unknown Completed [facility] HEPATITIS A Unknown Completed [facility] Hep B, Unspecified Unknown Completed Univer sity of [facility] Hep B, Adol or Pedi Unknown Completed Unive rsity of Dosage [facility] Hep B, Adol or Pedi Unknown Completed Unive rsity of Dosage [facility] Hep B, Adol or Pedi Unknown Completed Unive rsity of Dosage [facility] Heamophilus Unknown Completed [facility] Influenza B [facility] Heamophilus Unknown Completed [facility] Influenza B [facility] Heamophilus Unknown Completed [facility] Influenza B [facility] Heamophilus Unknown Completed [facility] Influenza B [facility] Hib-HbOC Unknown Completed [facility] Hib-HbOC Unknown Completed [facility] Hib-HbOC Unknown Completed [facility] Hib-HbOC Unknown Completed [facility] HPV Unknown Completed [facility] HPV Unknown Completed [facility] HPV Unknown Completed [facility] Meningococcal Unknown Completed [facility] Polysaccharide [facility] (groups A, C, Y and Branc h W-135) conjugate vaccine (MCV4P) MMR Unknown Completed [facility] MMR Unknown Completed [facility] Poliovirus, Live, Unknown Completed Univers ity of Oral, Trivalent [facility] Poliovirus, Live, Unknown Completed Univers [facility]y of Oral, Trivalent [facility] Poliovirus, Live, Unknown Completed Univers ity of Oral, Trivalent [facility] Poliovirus, Live, Unknown Completed [facility]y of Oral, Trivalent [facility] Tetanus/Diptheria Unknown Completed Univers ity [facility] TDAP Unknown Completed [facility] Varicella Unknown Completed University (varivax)(chicken [place] M edical pox) Branch Varicella Unknown Completed [facility] (varivax)(chicken [place] M edical pox) Branch SARS-COV-2 COVID-19 Unknown Completed Unive rsity of PFIZER VACCINE [facility] SARS-COV-2 COVID-19 Unknown Completed Unive rsity of PFIZER VACCINE [facility] DTP Unknown Completed [facility] DTP Unknown Completed [facility] DTP Unknown Completed [facility] DTP Unknown Completed [facility] DTaP, Unspecified Unknown Completed [facility] ity of Formulation [facility] Influenza Virus Unknown Completed Universit y of Vaccine Quad .5 mL [facility] 6+ MO Branch (FLUZONE/FLULAVAL/FL UARIX) Hep B, Unspecified Unknown Completed Univer sity of Formulation [facility] HEPATITIS A Unknown Completed [facility] HEPATITIS A Unknown Completed [facility] Hep B, Unspecified Unknown Completed Univer sity of Formulation [facility] Hep B, Adol or Pedi Unknown Completed Unive rsity of Dosage [facility] Hep B, Adol or Pedi Unknown Completed Unive rsity of Dosage [facility] Hep B, Adol or Pedi Unknown Completed Unive rsity of Dosage [facility] Heamophilus Unknown Completed [facility] Influenza B [facility] Heamophilus Unknown Completed [facility] Influenza B [facility] Heamophilus Unknown Completed [facility] Influenza B [facility] Heamophilus Unknown Completed [facility] Influenza B [facility] Hib-HbOC Unknown Completed [facility] Hib-HbOC Unknown Completed [facility] Hib-HbOC Unknown Completed [facility] Hib-HbOC Unknown Completed [facility] HPV Unknown Completed [facility] HPV Unknown Completed [facility] HPV Unknown Completed [facility] Meningococcal Unknown Completed [facility] (groups A, C, Y and Branc h W-135) conjugate vaccine (MCV4P) MMR Unknown Completed [facility] MMR Unknown Completed [facility] Poliovirus, Live, Unknown Completed Univers ity of Oral, Trivalent [facility] Poliovirus, Live, Unknown Completed Univers ity of Oral, Trivalent [facility] Poliovirus, Live, Unknown Completed Univers ity of Oral, Trivalent [facility] Poliovirus, Live, Unknown Completed Univers ity of Oral, Trivalent [facility] Tetanus/Diptheria Unknown Completed Univers ity [facility] TDAP Unknown Completed [facility] Varicella Unknown Completed [facility] (varivax)(chicken [place] M edical pox) Branch Varicella Unknown Completed [facility] (varivax)(chicken [place] M edical pox) [place] SARS-COV-2 COVID-19 Unknown Completed Unive rsity of PFIZER VACCINE [facility] SARS-COV-2 COVID-19 Unknown Completed Unive rsity of PFIZER VACCINE [facility] DTP Unknown Completed [facility] DTP Unknown Completed [facility] DTP Unknown Completed [facility] DTP Unknown Completed [facility] DTaP, Unspecified Unknown Completed [facility] ity of Formulation [facility] Influenza Virus Unknown Completed Universit y of Vaccine Quad .5 mL [facility] 6+ MO Branch (FLUZONE/FLULAVAL/FL UARIX) Hep B, Unspecified Unknown Completed Univer sity of Formulation [facility] HEPATITIS A Unknown Completed [facility] HEPATITIS A Unknown Completed [facility] Hep B, Unspecified Unknown Completed Univer sity of Formulation [facility] Hep B, Adol or Pedi Unknown Completed Unive rsity of Dosage [facility] Hep B, Adol or Pedi Unknown Completed Unive rsity of Dosage [facility] Hep B, Adol or Pedi Unknown Completed Unive rsity of Dosage [facility] Heamophilus Unknown Completed [facility] Influenza B [facility] Heamophilus Unknown Completed [facility] Influenza B [facility] Heamophilus Unknown Completed [facility] of Influenza B [facility] Heamophilus Unknown Completed [facility] Influenza B [facility] Hib-HbOC Unknown Completed [facility] Hib-HbOC Unknown Completed [facility] Hib-HbOC Unknown Completed [facility] Hib-HbOC Unknown Completed [facility] HPV Unknown Completed [facility] HPV Unknown Completed [facility] HPV Unknown Completed [facility] Meningococcal Unknown Completed [facility] (groups A, C, Y and Branc h W-135) conjugate vaccine (MCV4P) MMR Unknown Completed [facility] MMR Unknown Completed [facility] Poliovirus, Live, Unknown Completed Univers ity of Oral, Trivalent [facility] Poliovirus, Live, Unknown Completed Univers ity of Oral, Trivalent [facility] Poliovirus, Live, Unknown Completed Univers ity of Oral, Trivalent [facility] Poliovirus, Live, Unknown Completed Univers ity of Oral, Trivalent [facility] Tetanus/Diptheria Unknown Completed Univers ity [facility] TDAP Unknown Completed [facility] Varicella Unknown Completed University (varivax)(chicken [place] M edical pox) Branch Varicella Unknown Completed [facility] (varivax)(chicken [place] M edical pox) Branch SARS-COV-2 COVID-19 Unknown Completed Unive rsity of PFIZER VACCINE [facility] SARS-COV-2 COVID-19 Unknown Completed Unive rsity of PFIZER VACCINE [facility] DTP Unknown Completed [facility] DTP Unknown Completed [facility] DTP Unknown Completed [facility] DTP Unknown Completed [facility] DTaP, Unspecified Unknown Completed Univers ity of Formulation [facility] Influenza Virus Unknown Completed Universit y of Vaccine Quad .5 mL [facility] 6+ MO Branch (FLUZONE/FLULAVAL/FL UARIX) Hep B, Unspecified Unknown Completed Univer sity of Formulation [facility] HEPATITIS A Unknown Completed [facility] HEPATITIS A Unknown Completed [facility] Hep B, Unspecified Unknown Completed Univer sity of Formulation [facility] Hep B, Adol or Pedi Unknown Completed Unive rsity of Dosage [facility] Hep B, Adol or Pedi Unknown Completed Unive rsity of Dosage [facility] Hep B, Adol or Pedi Unknown Completed Unive rsity of Dosage [facility] Heamophilus Unknown Completed [facility] Influenza [facility] Heamophilus Unknown Completed [facility] Influenza [facility] Heamophilus Unknown Completed [facility] Influenza [facility] Heamophilus Unknown Completed [facility] Influenza [facility] Hib-HbOC Unknown Completed [facility] Hib-HbOC Unknown Completed [facility] Hib-HbOC Unknown Completed [facility] Hib-HbOC Unknown Completed [facility] HPV Unknown Completed [facility] HPV Unknown Completed [facility] HPV Unknown Completed [facility] Meningococcal Unknown Completed [facility] (groups A, C, Y and Branc h W-135) conjugate vaccine (MCV4P) MMR Unknown Completed [facility] MMR Unknown Completed [facility] Poliovirus, Live, Unknown Completed Univers ity of Oral, Trivalent [facility] Poliovirus, Live, Unknown Completed Univers ity of Oral, Trivalent [facility] Poliovirus, Live, Unknown Completed Univers ity of Oral, Trivalent [facility] Poliovirus, Live, Unknown Completed Univers ity of Oral, Trivalent [facility] Tetanus/Diptheria Unknown Completed Univers ity [facility] TDAP Unknown Completed [facility] Varicella Unknown Completed [facility] (varivax)(chicken [place] M edical pox) Branch Varicella Unknown Completed University (varivax)(chicken [place] M edical pox) Branch SARS-COV-2 COVID-19 Unknown Completed Unive rsity of PFIZER VACCINE [facility] SARS-COV-2 COVID-19 Unknown Completed Unive rsity of PFIZER VACCINE [facility] DTP Unknown Completed [facility] DTP Unknown Completed [facility] DTP Unknown Completed [facility] DTP Unknown Completed [facility] DTaP, Unspecified Unknown Completed Univers ity of Formulation [facility] Influenza Virus Unknown Completed Universit y of Vaccine Quad .5 mL [facility] 6+ MO Branch (FLUZONE/FLULAVAL/FL UARIX) Hep B, Unspecified Unknown Completed Univer sity of Formulation [facility] HEPATITIS A Unknown Completed [facility] HEPATITIS A Unknown Completed [facility] Hep B, Unspecified Unknown Completed Univer sity of Formulation [facility] Hep B, Adol or Pedi Unknown Completed Unive rsity of Dosage [facility] Hep B, Adol or Pedi Unknown Completed Unive rsity of Dosage [facility] Hep B, Adol or Pedi Unknown Completed Unive rsity of Dosage [facility] Heamophilus Unknown Completed [facility] Influenza B [facility] Heamophilus Unknown Completed [facility] Influenza B [facility] Heamophilus Unknown Com[facility] Influenza [facility] Heamophilus Unknown Completed [facility] Influenza [facility] Hib-HbOC Unknown Completed [facility] Hib-HbOC Unknown Completed [facility] Hib-HbOC Unknown Completed [facility] Hib-HbOC Unknown Completed [facility] HPV Unknown Completed [facility] HPV Unknown Completed [facility] HPV Unknown Completed [facility] Meningococcal Unknown Completed [facility] (groups A, C, Y and Branc h W-135) conjugate vaccine (MCV4P) MMR Unknown Completed [facility] MMR Unknown Completed [facility] Poliovirus, Live, Unknown Completed Univers ity of Oral, Trivalent [facility] Poliovirus, Live, Unknown Completed Univers ity of Oral, Trivalent [facility] Poliovirus, Live, Unknown Completed Univers ity of Oral, Trivalent [facility] Poliovirus, Live, Unknown Completed Univers ity of Oral, Trivalent [facility] Tetanus/Diptheria Unknown Completed Univers ity [facility] TDAP Unknown Completed [facility] Varicella Unknown Completed [facility] (varivax)(chicken [place] M edical pox) Branch Varicella Unknown Completed [facility] (varivax)(chicken [place] M edical pox) [place] SARS-COV-2 COVID-19 Unknown Completed Unive rsity of PFIZER VACCINE [facility] SARS-COV-2 COVID-19 Unknown Completed Unive rsity of PFIZER VACCINE [facility] DTP Unknown Completed [facility] DTP Unknown Completed [facility] DTP Unknown Completed [facility] DTP Unknown Completed [facility] DTaP, Unspecified Unknown Completed Univers ity of Formulation [facility] Influenza Virus Unknown Completed Universit y of Vaccine Quad .5 mL [facility] 6+ MO Branch (FLUZONE/FLULAVAL/FL UARIX) Hep B, Unspecified Unknown Completed Univer sity of Formulation [facility] HEPATITIS A Unknown Completed [facility] HEPATITIS A Unknown Completed [facility] Hep B, Unspecified Unknown Completed Univer sity of Formulation [facility] Hep B, Adol or Pedi Unknown Completed Unive rsity of Dosage [facility] Hep B, Adol or Pedi Unknown Completed Unive rsity of Dosage [facility] Hep B, Adol or Pedi Unknown Completed Unive rsity of Dosage [facility] Heamophilus Unknown Completed [facility] Influenza B [facility] Heamophilus Unknown Completed [facility] Influenza B [facility] Heamophilus Unknown Completed [facility] Influenza B [facility] Heamophilus Unknown Completed [facility] Influenza B [facility] Hib-HbOC Unknown Completed [facility] Hib-HbOC Unknown Completed [facility] Hib-HbOC Unknown Completed [facility] Hib-HbOC Unknown Completed [facility] HPV Unknown Completed [facility] HPV Unknown Completed [facility] HPV Unknown Completed [facility] Meningococcal Unknown Completed [facility] (groups A, C, Y and Branc h W-135) conjugate vaccine (MCV4P) MMR Unknown Completed [facility] MMR Unknown Completed [facility] Poliovirus, Live, Unknown Completed Univers ity of Oral, Trivalent [facility] Poliovirus, Live, Unknown Completed Univers ity of Oral, Trivalent [facility] Poliovirus, Live, Unknown Completed Univers ity of Oral, Trivalent [facility] Poliovirus, Live, Unknown Completed Univers ity of Oral, Trivalent [facility] Tetanus/Diptheria Unknown Completed Univers ity [facility] TDAP Unknown Completed [facility] Varicella Unknown Completed [facility] of (varivax)(chicken [place] M edical pox) Branch Varicella Unknown Completed [facility] (varivax)(chicken [place] M edical pox) Branch SARS-COV-2 COVID-19 Unknown Completed Unive rsity of PFIZER VACCINE [facility] SARS-COV-2 COVID-19 Unknown Completed Unive rsity of PFIZER VACCINE [facility] DTP Unknown Completed [facility] DTP Unknown Completed [facility] DTP Unknown Completed [facility] DTP Unknown Completed [facility] DTaP, Unspecified Unknown Completed Univers ity of Formulation [facility] Influenza Virus Unknown Completed Universit y of Vaccine Quad .5 mL [facility] 6+ MO Branch (FLUZONE/FLULAVAL/FL UARIX) Hep B, Unspecified Unknown Completed Univer sity of Formulation [facility] HEPATITIS A Unknown Completed [facility] HEPATITIS A Unknown Completed [facility] Hep B, Unspecified Unknown Completed Univer sity of Formulation [facility] Hep B, Adol or Pedi Unknown Completed Unive rsity of Dosage [facility] Hep B, Adol or Pedi Unknown Completed Unive rsity of Dosage [facility] Hep B, Adol or Pedi Unknown Completed Unive rsity of Dosage [facility] Heamophilus Unknown Completed [facility] Influenza [facility] Heamophilus Unknown Completed [facility] Influenza B [facility] Heamophilus Unknown Completed [facility] Influenza B [facility] Heamophilus Unknown Completed [facility] Influenza [facility] Hib-HbOC Unknown Completed [facility] Hib-HbOC Unknown Completed [facility] Hib-HbOC Unknown Completed [facility] Hib-HbOC Unknown Completed [facility] HPV Unknown Completed [facility] HPV Unknown Completed [facility] HPV Unknown Completed [facility] Meningococcal Unknown Completed [facility] (groups A, C, Y and Branc h W-135) conjugate vaccine (MCV4P) MMR Unknown Completed [facility] MMR Unknown Completed [facility] Poliovirus, Live, Unknown Completed Univers ity of Oral, Trivalent [facility] Poliovirus, Live, Unknown Completed Univers ity of Oral, Trivalent [facility] Poliovirus, Live, Unknown Completed Univers [facility]y of Oral, Trivalent [facility] Poliovirus, Live, Unknown Completed [facility]y of Oral, Trivalent [facility] Tetanus/Diptheria Unknown Completed Univers ity [facility] TDAP Unknown Completed [facility] Varicella Unknown Completed [facility] (varivax)(chicken [place] [facility] pox) Branch Varicella Unknown Completed University (varivax)(chicken [place] [facility] [place] pox) Branch SARS-COV-2 COVID-19 Unknown Completed Unive rsity of PFIZER VACCINE [facility] SARS-COV-2 COVID-19 Unknown Completed Unive rsity of PFIZER VACCINE [facility] DTP Unknown Completed [facility] DTP Unknown Completed [facility] DTP Unknown Completed [facility] DTP Unknown Completed [facility] DTaP, Unspecified Unknown Completed Univers ity of Formulation [facility] Influenza Virus Unknown Completed Universit y of Vaccine Quad .5 mL [facility] IM 6+ [place] Branch (FLUZONE/FLULAVAL/FL UARIX) Hep B, Unspecified Unknown Completed Univer sity of Formulation [facility] HEPATITIS A Unknown Completed [facility] HEPATITIS A Unknown Completed [facility] Hep B, Unspecified Unknown Completed Univer sity of Formulation [facility] Hep B, Adol or Pedi Unknown Completed Unive rsity of Dosage [facility] Hep B, Adol or Pedi Unknown Completed Unive rsity of Dosage [facility] Hep B, Adol or Pedi Unknown Completed Unive rsity of Dosage [facility] Heamophilus Unknown Completed [facility] Influenza [facility] Heamophilus Unknown Completed [facility] Influenza B [facility] Heamophilus Unknown Completed [facility] Influenza [facility] Heamophilus Unknown Completed [facility] Hib-HbOC Unknown Completed [facility] Hib-HbOC Unknown Completed [facility] Hib-HbOC Unknown Completed [facility] Hib-HbOC Unknown Completed [facility] HPV Unknown Completed [facility] HPV Unknown Completed [facility] HPV Unknown Completed [facility] Meningococcal Unknown Completed [facility] (groups A, C, Y and Branc h W-135) conjugate vaccine (MCV4P) MMR Unknown Completed [facility] MMR Unknown Completed [facility] Poliovirus, Live, Unknown Completed Univers ity of Oral, Trivalent [facility] Poliovirus, Live, Unknown Completed [facility] of Oral, Trivalent [facility] Poliovirus, Live, Unknown Completed [facility] of Oral, Trivalent [facility] Poliovirus, Live, Unknown Completed [facility]y of Oral, Trivalent [facility] Tetanus/Diptheria Unknown Completed Univers ity [facility] TDAP Unknown Completed [facility] Varicella Unknown Completed [facility] (varivax)(chicken [place] [facility] [place] pox) Branch Varicella Unknown Completed [facility] (varivax)(chicken [place] [facility] pox) Branch SARS-COV-2 COVID-19 Unknown Completed Unive rsity of PFIZER VACCINE [facility] SARS-COV-2 COVID-19 Unknown Completed Unive rsity of PFIZER VACCINE [facility] DTP Unknown Completed [facility] DTP Unknown Completed [facility] DTP Unknown Completed [facility] DTP Unknown Completed [facility] DTaP, Unspecified Unknown Completed [facility] ity of Formulation [facility] Influenza Virus Unknown Completed Universit y of Vaccine Quad .5 mL [facility] 6+ MO Branch (FLUZONE/FLULAVAL/FL UARIX) Hep B, Unspecified Unknown Completed Univer sity of Formulation [facility] HEPATITIS A Unknown Completed [facility] HEPATITIS A Unknown Completed [facility] Hep B, Unspecified Unknown Completed Univer sity of Formulation [facility] Hep B, Adol or Pedi Unknown Completed Unive rsity of Dosage [facility] Hep B, Adol or Pedi Unknown Completed Unive rsity of Dosage [facility] Hep B, Adol or Pedi Unknown Completed Unive rsity of Dosage [facility] Heamophilus Unknown Completed [facility] Influenza B [facility] Heamophilus Unknown Completed [facility] Influenza B [facility] Heamophilus Unknown Completed [facility] Influenza B [facility] Heamophilus Unknown Completed [facility] Hib-HbOC Unknown Completed [facility] Hib-HbOC Unknown Completed [facility] Hib-HbOC Unknown Completed [facility] Hib-HbOC Unknown Completed [facility] HPV Unknown Completed [facility] HPV Unknown Completed [facility] HPV Unknown Completed [facility] Meningococcal Unknown Completed [facility] Polysaccharide [facility] (groups A, C, Y and Branc h W-135) conjugate vaccine (MCV4P) MMR Unknown Completed [facility] MMR Unknown Completed [facility] Poliovirus, Live, Unknown Completed [facility] of Oral, Trivalent [facility] Poliovirus, Live, Unknown Completed [facility] Oral, Trivalent [facility] Poliovirus, Live, Unknown Completed [facility] of Oral, Trivalent [facility] Poliovirus, Live, Unknown Completed [facility] Oral, Trivalent [facility]anus[facility]heria [facility] Varicella Unknown Completed [facility] (varivax[place]chicken [place] [facility] [place] pox) Branch Varicella Unknown Completed [facility] of (varivax)(chicken [place] M [facility] pox) Branch SARS-COV-2 COVID-19 Unknown Completed Unive rsity of PFIZER VACCINE [facility] SARS-COV-2 COVID-19 Unknown Completed Unive rsity of PFIZER VACCINE [facility] DTP Unknown Completed [facility] DTP Unknown Completed [facility] DTP Unknown Completed [facility] DTP Unknown Completed [facility] DTaP, Unspecified Unknown Completed [facility] of Formulation [facility] Influenza Virus Unknown Completed Universit y of Vaccine Quad .5 mL [facility] IM 6+ [place] Branch (FLUZONE/FLULAVAL/FL UARIX) Hep B, Unspecified Unknown Completed Univer sity of Formulation [facility] HEPATITIS A Unknown Completed [facility] HEPATITIS A Unknown Completed [facility] Hep B, Unspecified Unknown Completed Univer sity of Formulation [facility] Hep B, Adol or Pedi Unknown Completed Unive rsity of Dosage [facility] Hep B, Adol or Pedi Unknown Completed Unive rsity of Dosage [facility] Hep B, Adol or Pedi Unknown Completed Unive rsity of Dosage [facility] Heamophilus Unknown Completed [facility] Influenza [facility] Heamophilus Unknown Completed [facility] Influenza [facility] Heamophilus Unknown Completed [facility] Influenza B [facility] Heamophilus Unknown Completed [facility] Influenza [facility] Hib-HbOC Unknown Completed [facility] Hib-HbOC Unknown Completed [facility] Hib-HbOC Unknown Completed [facility] Hib-HbOC Unknown Completed [facility] HPV Unknown Completed [facility] HPV Unknown Completed [facility] HPV Unknown Completed [facility] Meningococcal Unknown Completed [facility] (groups A, C, Y and Branc h W-135) conjugate vaccine (MCV4P) MMR Unknown Completed [facility] MMR Unknown Completed [facility] Poliovirus, Live, Unknown Completed [facility]y of Oral, Trivalent [facility] Poliovirus, Live, Unknown Completed [facility]y of Oral, Trivalent [facility] Poliovirus, Live, Unknown Completed [facility]y of Oral, Trivalent [facility] Poliovirus, Live, Unknown Completed [facility]y of Oral, Trivalent [facility] Tetanus/Diptheria Unknown Completed Univers ity [facility] TDAP Unknown Completed [facility] Varicella Unknown Completed [facility] (varivax)(chicken [place] [facility] [place] pox) Branch Varicella Unknown Completed [facility] (varivax)(chicken [place] [facility] pox) Branch SARS-COV-2 COVID-19 Unknown Completed Unive rsity of PFIZER VACCINE [facility] SARS-COV-2 COVID-19 Unknown Completed Unive rsity of PFIZER VACCINE [facility] DTP Unknown Completed [facility] DTP Unknown Completed [facility] DTP Unknown Completed [facility] DTP Unknown Completed [facility] DTaP, Unspecified Unknown Completed [facility] ity of Formulation [facility] Influenza Virus Unknown Completed Universit y of Vaccine Quad .5 mL [facility] 6+ MO Branch (FLUZONE/FLULAVAL/FL UARIX) Hep B, Unspecified Unknown Completed Univer sity of Formulation [facility] HEPATITIS A Unknown Completed [facility] HEPATITIS A Unknown Completed [facility] Hep B, Unspecified Unknown Completed Univer sity of Formulation [facility] Hep B, Adol or Pedi Unknown Completed Unive rsity of Dosage [facility] Hep B, Adol or Pedi Unknown Completed Unive rsity of Dosage [facility] Hep B, Adol or Pedi Unknown Completed Unive rsity of Dosage [facility] Heamophilus Unknown Completed [facility] Influenza [facility] Heamophilus Unknown Completed [facility] Influenza [facility] Heamophilus Unknown Completed [facility] Influenza [facility] Heamophilus Unknown Completed [facility] Influenza [facility] Hib-HbOC Unknown Completed [facility] Hib-HbOC Unknown Completed [facility] Hib-HbOC Unknown Completed [facility] Hib-HbOC Unknown Completed [facility] HPV Unknown Completed [facility] HPV Unknown Completed [facility] HPV Unknown Completed [facility] Meningococcal Unknown Completed [facility] (groups A, C, Y and Branc h W-135) conjugate vaccine (MCV4P) MMR Unknown Completed [facility] MMR Unknown Completed [facility] Poliovirus, Live, Unknown Completed Univers ity of Oral, Trivalent [facility] Poliovirus, Live, Unknown Completed [facility]y of Oral, Trivalent [facility] Poliovirus, Live, Unknown Completed [facility] ity of Oral, Trivalent [facility] Poliovirus, Live, Unknown Completed [facility] ity of Oral, Trivalent [facility] Tetanus/Diptheria Unknown Completed Univers ity [facility] TDAP Unknown Completed [facility] Varicella Unknown Completed [facility] (varivax)(chicken [place] M [facility] pox) Branch Varicella Unknown Completed [facility] (varivax)(chicken [place] M [facility] pox) Branch SARS-COV-2 COVID-19 Unknown Completed Unive rsity of PFIZER VACCINE [facility] SARS-COV-2 COVID-19 Unknown Completed Unive rsity of PFIZER VACCINE [facility] DTP Unknown Completed [facility] DTP Unknown Completed [facility] DTP Unknown Completed [facility] DTP Unknown Completed [facility] DTaP, Unspecified Unknown Completed [facility]y of Formulation [facility] Influenza Virus Unknown Completed Universit y of Vaccine Quad .5 mL [facility] 6+ MO Branch (FLUZONE/FLULAVAL/FL UARIX) Hep B, Unspecified Unknown Completed Univer sity of Formulation [facility] HEPATITIS A Unknown Completed [facility] HEPATITIS A Unknown Completed [facility] Hep B, Unspecified Unknown Completed Univer sity of [facility] Hep B, Adol or Pedi Unknown Completed Unive rsity of Dosage [facility] Hep B, Adol or Pedi Unknown Completed Unive rsity of Dosage [facility] Hep B, Adol or Pedi Unknown Completed Unive rsity of Dosage [facility] Heamophilus Unknown Completed [facility] Influenza [facility] Heamophilus Unknown Completed [facility] Influenza [facility] Heamophilus Unknown Completed [facility] Influenza [facility] Heamophilus Unknown Completed [facility] Influenza [facility] Hib-HbOC Unknown Completed [facility] Hib-HbOC Unknown Completed [facility] Hib-HbOC Unknown Completed [facility] Hib-HbOC Unknown Completed [facility] HPV Unknown Completed [facility] HPV Unknown Completed [facility] HPV Unknown Completed [facility] Meningococcal Unknown Completed [facility] (groups A, C, Y and Branc h W-135) conjugate vaccine (MCV4P) MMR Unknown Completed [facility] MMR Unknown Completed [facility] Poliovirus, Live, Unknown Completed Univers ity of Oral, Trivalent [facility] Poliovirus, Live, Unknown Completed Univers ity of Oral, Trivalent [facility] Poliovirus, Live, Unknown Completed Univers ity of Oral, Trivalent [facility] Poliovirus, Live, Unknown Completed Univers ity of Oral, Trivalent [facility] Tetanus/Diptheria Unknown Completed Univers ity [facility] TDAP Unknown Completed [facility] Varicella Unknown Completed [facility] of (varivax)(chicken [place] M [facility]ical pox) Branch Varicella Unknown Completed [facility] (varivax)(chicken [place] M [facility]ical pox) Branch SARS-COV-2 COVID-19 Unknown Completed Unive rsity of PFIZER VACCINE [facility] SARS-COV-2 COVID-19 Unknown Completed Unive rsity of PFIZER VACCINE [facility] DTP Unknown Completed [facility] DTP Unknown Completed [facility] DTP Unknown Completed [facility] DTP Unknown Completed [facility] DTaP, Unspecified Unknown Completed [facility] ity of Formulation [facility] Influenza Virus Unknown Completed Universit y of Vaccine Quad .5 mL [facility] 6+ MO Branch (FLUZONE/FLULAVAL/FL UARIX) Hep B, Unspecified Unknown Completed Univer sity of Formulation [facility] HEPATITIS A Unknown Completed [facility] HEPATITIS A Unknown Completed [facility] Hep B, Unspecified Unknown Completed Univer sity of [facility] [place] Hep B, Adol or Pedi Unknown Completed Unive rsity of Dosage [facility] Hep B, Adol or Pedi Unknown Completed Unive rsity of Dosage [facility] Hep B, Adol or Pedi Unknown Completed Unive rsity of Dosage [facility] Heamophilus Unknown Completed [facility] Influenza B [facility] Heamophilus Unknown Completed [facility] Influenza B [facility] Heamophilus Unknown Completed [facility] Influenza B [facility]amophilus Unknown Completed [facility] Influenza B [facility] Hib-HbOC Unknown Completed [facility] Hib-HbOC Unknown Completed [facility] Hib-HbOC Unknown Completed [facility] Hib-HbOC Unknown Completed [facility] HPV Unknown Completed [facility] HPV Unknown Completed [facility] HPV Unknown Completed [facility] Meningococcal Unknown Completed [facility] (groups A, C, Y and Branc h W-135) conjugate vaccine (MCV4P) MMR Unknown Completed [facility] MMR Unknown Completed [facility] Poliovirus, Live, Unknown Completed Univers ity of Oral, Trivalent [facility] Poliovirus, Live, Unknown Completed Univers ity of Oral, Trivalent [facility] Poliovirus, Live, Unknown Completed Univers ity of Oral, Trivalent [facility] Poliovirus, Live, Unknown Completed Univers ity of Oral, Trivalent [facility] Tetanus/Diptheria Unknown Completed Univers ity [facility] TDAP Unknown Completed [facility] Varicella Unknown Completed [facility] (varivax)(chicken [place] M [facility]ical pox) Branch Varicella Unknown Completed [facility] (varivax)(chicken [place] M edical pox) Branch SARS-COV-2 COVID-19 Unknown Completed Unive rsity of PFIZER VACCINE [facility] SARS-COV-2 COVID-19 Unknown Completed Unive rsity of PFIZER VACCINE [facility] DTP Unknown Completed [facility] DTP Unknown Completed [facility] DTP Unknown Completed [facility] DTP Unknown Completed [facility] DTaP, Unspecified Unknown Completed Univers ity of Formulation [facility] Influenza Virus Unknown Completed Universit y of Vaccine Quad .5 mL [facility] 6+ MO Branch (FLUZONE/FLULAVAL/FL UARIX) Hep B, Unspecified Unknown Completed Univer sity of Formulation [facility] HEPATITIS A Unknown Completed [facility] HEPATITIS A Unknown Completed [facility] Hep B, Unspecified Unknown Completed Univer sity of Formulation [facility] Hep B, Adol or Pedi Unknown Completed Unive rsity of Dosage [facility] Hep B, Adol or Pedi Unknown Completed Unive rsity of Dosage [facility] Hep B, Adol or Pedi Unknown Completed Unive rsity of Dosage [facility] Heamophilus Unknown Completed [facility] Influenza B [facility] Heamophilus Unknown Completed [facility] Influenza B [facility] Heamophilus Unknown Completed [facility] Influenza B [facility] Heamophilus Unknown Completed [facility] Influenza B [facility] Hib-HbOC Unknown Completed [facility] Hib-HbOC Unknown Completed [facility] Hib-HbOC Unknown Completed [facility] Hib-HbOC Unknown Completed [facility] HPV Unknown Completed [facility] HPV Unknown Completed [facility] HPV Unknown Completed [facility] Meningococcal Unknown Completed [place] of Polysaccharide [facility] (groups A, C, Y and Branc h W-135) conjugate vaccine (MCV4P) MMR Unknown Completed [facility] MMR Unknown Completed [facility] Poliovirus, Live, Unknown Completed Univers ity of Oral, Trivalent [facility] Poliovirus, Live, Unknown Completed Univers ity of Oral, Trivalent [facility] Poliovirus, Live, Unknown Completed Univers ity of Oral, Trivalent [facility] Poliovirus, Live, Unknown Completed Univers ity of Oral, Trivalent [facility] Tetanus/Diptheria Unknown Completed Univers ity [facility] TDAP Unknown Completed [facility] Varicella Unknown Completed [facility] (varivax)(chicken [place] M edical pox) Branch Varicella Unknown Completed [facility] (varivax)(chicken [place] M edical pox) Branch SARS-COV-2 COVID-19 Unknown Completed Unive rsity of PFIZER VACCINE [facility] SARS-COV-2 COVID-19 Unknown Completed Unive rsity of PFIZER VACCINE [facility] DTP Unknown Completed [facility] DTP Unknown Completed [facility] DTP Unknown Completed [facility] DTP Unknown Completed [facility] DTaP, Unspecified Unknown Completed Univers ity of Formulation [facility] Influenza Virus Unknown Completed Universit y of Vaccine Quad .5 mL [facility] 6+ MO Branch (FLUZONE/FLULAVAL/FL UARIX) Hep B, Unspecified Unknown Completed Univer sity of Formulation [facility] HEPATITIS A Unknown Completed [facility] HEPATITIS A Unknown Completed [facility] Hep B, Unspecified Unknown Completed Univer sity of Formulation [facility] Hep B, Adol or Pedi Unknown Completed Unive rsity of Dosage [facility] Hep B, Adol or Pedi Unknown Completed Unive rsity of Dosage [facility] Hep B, Adol or Pedi Unknown Completed Unive rsity of Dosage [facility] Heamophilus Unknown Completed [facility] Influenza B [facility] Heamophilus Unknown Completed [facility] Influenza B [facility] Heamophilus Unknown Completed [facility] Influenza B [facility] Heamophilus Unknown Completed [facility] Influenza B [facility] Hib-HbOC Unknown Completed [facility] Hib-HbOC Unknown Completed [facility] Hib-HbOC Unknown Completed [facility] Hib-HbOC Unknown Completed [facility] HPV Unknown Completed [facility] HPV Unknown Completed [facility] HPV Unknown Completed [facility] Meningococcal Unknown Completed [facility] (groups A, C, Y and Branc h W-135) conjugate vaccine (MCV4P) MMR Unknown Completed [facility] MMR Unknown Completed [facility] Poliovirus, Live, Unknown Completed Univers ity of Oral, Trivalent [facility] Poliovirus, Live, Unknown Completed Univers ity of Oral, Trivalent [facility] Poliovirus, Live, Unknown Completed Univers ity of Oral, Trivalent [facility] Poliovirus, Live, Unknown Completed Univers ity of Oral, Trivalent [facility] Tetanus/Diptheria Unknown Completed Univers ity [facility] TDAP Unknown Completed [facility] Varicella Unknown Completed [facility] (varivax)(chicken [place] M [facility]ical pox) Branch Varicella Unknown Completed [facility] (varivax)(chicken [place] M edical pox) Branch SARS-COV-2 COVID-19 Unknown Completed Unive rsity of PFIZER VACCINE [facility] SARS-COV-2 COVID-19 Unknown Completed Unive rsity of PFIZER VACCINE [facility] DTP Unknown Completed [facility] DTP Unknown Completed [facility] DTP Unknown Completed [facility] DTP Unknown Completed [facility] DTaP, Unspecified Unknown Completed Univers ity of Formulation [facility] Influenza Virus Unknown Completed Universit y of Vaccine Quad .5 mL [facility] 6+ [place] Branch (FLUZONE/FLULAVAL/FL UARIX) Hep B, Unspecified Unknown Completed Univer sity of Formulation [facility] HEPATITIS A Unknown Completed [facility] HEPATITIS A Unknown Completed [facility] Hep B, Unspecified Unknown Completed [facility]iver [facility]ity of Formulation [facility] Hep B, Adol or Pedi Unknown Completed Unive rsity of Dosage [facility] Hep B, Adol or Pedi Unknown Completed Unive rsity of Dosage [facility] Hep B, Adol or Pedi Unknown Completed Unive rsity of Dosage [facility] Heamophilus Unknown Completed [facility] Influenza B [facility] Heamophilus Unknown Completed [facility] Influenza [facility] Heamophilus Unknown Completed [facility] Influenza [facility] Heamophilus Unknown Completed [facility] Influenza [facility] Hib-HbOC Unknown Completed [facility] Hib-HbOC Unknown Completed [facility] Hib-HbOC Unknown Completed [facility] Hib-HbOC Unknown Completed [facility] HPV Unknown Completed [facility] HPV Unknown Completed [facility] HPV Unknown Completed [facility] Meningococcal Unknown Completed [facility] (groups A, C, Y and Branc h W-135) conjugate vaccine (MCV4P) MMR Unknown Completed [facility] MMR Unknown Completed [facility] Poliovirus, Live, Unknown Completed Univers ity of Oral, Trivalent [facility] Poliovirus, Live, Unknown Completed Univers ity of Oral, Trivalent [facility] Poliovirus, Live, Unknown Completed Univers ity of Oral, Trivalent [facility] Poliovirus, Live, Unknown Completed Univers ity of Oral, Trivalent [facility] Tetanus/Diptheria Unknown Completed Univers ity [facility] TDAP Unknown Completed [facility] Varicella Unknown Completed University (varivax)(chicken [place] [facility] Varicella Unknown Completed University (varivax)(chicken [place] [facility] p[facility] SARS-COV-2 COVID-19 Unknown Completed Unive rsity of PFIZER VACCINE [facility] SARS-COV-2 COVID-19 Unknown Completed Unive rsity of PFIZER VACCINE [facility] DTP Unknown Completed [facility] DTP Unknown Completed [facility] DTP Unknown Completed [facility] DTP Unknown Completed [facility] DTaP, Unspecified Unknown Completed [facility]y of Formulation [facility] Influenza Virus Unknown Completed Universit y of Vaccine Quad .5 mL [facility] 6+ [place] Branch (FLUZONE/FLULAVAL/FL UARIX) Hep B, Unspecified Unknown Completed Univer sity of Formulation [facility] HEPATITIS A Unknown Completed [facility] HEPATITIS A Unknown Completed [facility] Hep B, Unspecified Unknown Completed Univer sity of Formulation [facility] Hep B, Adol or Pedi Unknown Completed Unive rsity of Dosage [facility] Hep B, Adol or Pedi Unknown Completed Unive rsity of Dosage [facility] Hep B, Adol or Pedi Unknown Completed Unive rsity of Dosage [facility] Heamophilus Unknown Completed [facility] Influenza B [facility] Heamophilus Unknown Completed [facility] Influenza B [facility] Heamophil[facility] Unknown Completed [facility] Influenza B [facility] Heamophilus Unknown Completed [facility] Influenza [facility] Hib-HbOC Unknown Completed [facility] Hib-HbOC Unknown Completed [facility] Hib-HbOC Unknown Completed [facility] Hib-HbOC Unknown Completed [facility] HPV Unknown Completed [facility] HPV Unknown Completed [facility] HPV Unknown Completed [facility] Meningococcal Unknown Completed [facility] (groups A, C, Y and Branc h W-135) conjugate vaccine (MCV4P) MMR Unknown Completed [facility] MMR Unknown Completed [facility] Poliovirus, Live, Unknown Completed Univers ity of Oral, Trivalent [facility] Poliovirus, Live, Unknown Completed Univers ity of Oral, Trivalent [facility] Poliovirus, Live, Unknown Completed Univers ity of Oral, Trivalent [facility] Poliovirus, Live, Unknown Completed Univers ity of Oral, Trivalent [facility] Tetanus/Diptheria Unknown Completed Univers ity [facility] TDAP Unknown Completed [facility] Varicella Unknown Completed University (varivax[facility]chicken [place] [facility] Varicella Unknown Completed University (varivax)(chicken [place] [facility] pox) Branch SARS-COV-2 COVID-19 Unknown Completed Unive rsity of PFIZER VACCINE [facility] SARS-COV-2 COVID-19 Unknown Completed Unive rsity of PFIZER VACCINE [facility] DTP Unknown Completed [facility] DTP Unknown Completed [facility] DTP Unknown Completed [facility] DTP Unknown Completed [facility] DTaP, Unspecified Unknown Completed [facility] ity of Formulation [facility] Influenza Virus Unknown Completed [facility]it y of Vaccine Quad .5 mL [facility] 6+ [place] Branch (FLUZONE/FLULAVAL/FL UARIX) Hep B, Unspecified Unknown Completed Univer sity of Formulation [facility] HEPATITIS A Unknown Completed [facility] HEPATITIS A Unknown Completed [facility] Hep B, Unspecified Unknown Completed Univer sity of Formulation [facility] Hep B, Adol or Pedi Unknown Completed Unive rsity of Dosage [facility] Hep B, Adol or Pedi Unknown Completed Unive rsity of Dosage [facility] Hep B, Adol or Pedi Unknown Completed Unive rsity of Dosage [facility] Heamophilus Unknown Completed [facility] Influenza B [facility] Heamophilus Unknown Completed [facility] Influenza B [facility] Heamophil[facility] Unknown Completed [facility] Influenza B [facility] Heamophilus Unknown Completed [facility] Influenza B [facility] Hib-HbOC Unknown Completed [facility] Hib-HbOC Unknown Completed [facility] Hib-HbOC Unknown Completed [facility] Hib-HbOC Unknown Completed [facility] HPV Unknown Completed [facility] HPV Unknown Completed [facility] HPV Unknown Completed [facility] Meningococcal Unknown Completed [facility] (groups A, C, Y and Branc h W-135) conjugate vaccine (MCV4P) MMR Unknown Completed [facility] MMR Unknown Completed [facility] Poliovirus, Live, Unknown Completed Univers ity of Oral, Trivalent [facility] Poliovirus, Live, Unknown Completed Univers ity of Oral, Trivalent [facility] Poliovirus, Live, Unknown Completed Univers ity of Oral, Trivalent [facility] Poliovirus, Live, Unknown Completed [facility] Tetanus/Diptheria Unknown Completed Univers ity [facility] TDAP Unknown Completed [facility] Varicella Unknown Completed [facility] (varivax)(chicken [place] [facility] p[facility]) Branch Varicella Unknown Completed [facility] (varivax)(chicken [place] [facility] pox) [place] PFIZER COVID-19 MRNA Unknown Completed [facility] PFIZER COVID-19 MRNA Unknown Completed [facility] Vital Signs Vital Name Observation Time Observation Value Comments Source Systolic blood 2023-07-05 114 mm[Hg] [facility] pressure 17:46:17 [facility] Diastolic blood 2023-07-05 94 mm[Hg] [facility] f pressure 17:46:17 [facility] Heart rate 2023-07-05 93 /min [facility] 17:46:17 [facility] Body temperature 2023-07-[address] [facility] 17:46:17 [facility] Respiratory rate 2023-07-05 16 /min University of 17:46:17 [facility] Body height 2023-07-05 160 cm University of 17:44:00 [facility] Body weight 2023-07-05 67.586 kg University of 17:44:00 [facility] BMI 2023-07-05 26.39 kg/m2 University of 17:44:00 [facility] Oxygen saturation 2023-07-05 100 /min University of in Arterial blood 17:44:00 [facility] shanice by Pulse oximetry Branch Systolic blood 2023-07-01 116 mm[Hg] University of pressure 16:23:00 [facility] Diastolic blood 2023-07-01 76 mm[Hg] University o f pressure 16:23:00 [facility] Heart rate 2023-07-01 66 /min University of 16:23:00 [facility] Body temperature 2023-07-01 36.28 Alisha University of 16:23:00 [facility] Respiratory rate 2023-07-01 18 /min University of 16:23:00 [facility] Body height 2023-07-01 160 cm University of 16:23:00 [facility] Body weight 2023-07-01 70.852 kg University of 16:23:00 [facility] BMI 2023-07-01 27.67 kg/m2 University of 16:23:00 [facility] Oxygen saturation 2023-07-01 100 /min University of in Arterial blood 16:23:00 [facility] by Pulse oximetry Branch Systolic blood 2023-06-29 120 mm[Hg] University of pressure 18:40:00 [facility] Diastolic blood 2023-06-29 82 mm[Hg] University o f pressure 18:40:00 [facility] Heart rate 2023-06-29 81 /min University of 18:40:00 [facility] Body temperature 2023-06-29 36.5 Alisha University of 18:40:00 [facility] Respiratory rate 2023-06-29 18 /min University of 18:40:00 [facility] Body height 2023-06-29 160 cm University of 18:40:00 [facility] Body weight 2023-06-29 67.586 kg University of 18:40:00 [facility] BMI 2023-06-29 26.39 kg/m2 University of 18:40:00 [facility] Oxygen saturation 2023-06-29 100 /min University of in Arterial blood 18:40:00 [facility] shanice by Pulse oximetry Branch Systolic blood 2023-06-10 133 mm[Hg] University of pressure 15:38:00 [facility] Diastolic blood 2023-06-10 78 mm[Hg] University o f pressure 15:38:00 [facility] Heart rate 2023-06-10 90 /min University of 15:38:00 [facility] Body height 2023-06-10 160 cm University of 15:38:00 [facility] Body weight 2023-06-10 69.627 kg University of 15:38:00 [facility] BMI 2023-06-10 27.19 kg/m2 University of 15:38:00 [facility] Oxygen saturation 2023-06-10 99 /min University of in Arterial blood 15:38:00 [facility] by Pulse oximetry Branch Systolic blood 2023-03-02 133 mm[Hg] University of pressure 17:25:00 [facility] Diastolic blood 2023-03-02 79 mm[Hg] University o f pressure 17:25:00 [facility] Heart rate 2023-03-02 86 /min University of 17:25:00 [facility] Body temperature 2023-03-02 36.67 Alisha University of 17:25:00 [facility] Respiratory rate 2023-03-02 16 /min University of 17:25:00 [facility] Body height 2023-03-02 160 cm University of 17:25:00 [facility] Body weight 2023-03-02 69.627 kg University of 17:25:00 [facility] BMI 2023-03-02 27.19 kg/m2 University of 17:25:00 [facility] Oxygen saturation 2023-03-02 97 /min University of in Arterial blood 17:25:00 [facility] shanice by Pulse oximetry Branch Systolic blood 2023-01-21 156 mm[Hg] University of pressure 23:13:33 [facility] Diastolic blood 2023-01-21 100 mm[Hg] University o f pressure 23:13:33 [facility] Heart rate 2023-01-21 88 /min University of 23:13:33 [facility] Respiratory rate 2023-01-21 20 /min University of 23:13:33 [facility] Oxygen saturation 2023-01-21 100 /min University of in Arterial blood 23:13:33 [place] [facility] Pulse oxim[facility] Body height 2023-01-21 160 cm University of 18:44:00 [facility] Body weight 2023-01-21 69.854 kg University of 18:44:00 [facility] BMI 2023-01-21 27.28 kg/m2 University of 18:44:00 [facility] Body temperature 2023-01-21 37.11 Alisha University of 18:43:00 [facility] Systolic blood 2023-01-15 121 mm[Hg] University of pressure 18:01:00 [facility] Diastolic blood 2023-01-15 81 mm[Hg] University o f pressure 18:01:00 [facility] Heart rate 2023-01-15 83 /min University of 18:01:00 [facility] Respiratory rate 2023-01-15 16 /min University of 18:01:00 [facility] Oxygen saturation 2023-01-15 97 /min University of in Arterial blood 18:01:00 [facility] shanice by Pulse oximetry Branch Body temperature 2023-01-15 36.89 Alisha University of 14:55:07 [facility] Body weight 2023-01-15 68.04 kg University of 13:47:00 [facility] BMI 2023-01-15 26.57 kg/m2 University of 13:47:00 [facility] Systolic blood 2023-01-15 131 mm[Hg] University of pressure 10:13:00 [facility] Diastolic blood 2023-01-15 83 mm[Hg] University o f pressure 10:13:00 [facility] Heart rate 2023-01-15 104 /min University of 10:13:00 [facility] Body temperature 2023-01-15 36.94 Alisha University of 10:13:00 [facility] Respiratory rate 2023-01-15 21 /min University of 10:13:00 [facility] Body height 2023-01-15 160 cm University of 10:13:00 [facility] Body weight 2023-01-15 68.04 kg University of 10:13:00 [facility] BMI 2023-01-15 26.57 kg/m2 University of 10:13:00 [facility] Oxygen saturation 2023-01-15 100 /min University of in Arterial blood 10:13:00 [place] [facility] Pulse oximetry [facility] Systolic blood 2022-12-31 128 mm[Hg] University of pressure 05:09:00 [facility] Diastolic blood 2022-12-31 79 mm[Hg] University o f pressure 05:09:00 [facility] Heart rate 2022-12-31 71 /min University of 05:09:00 [facility] Body temperature 2022-12-31 36.78 Alisha University of 05:09:00 [facility] Respiratory rate 2022-12-31 16 /min University of 05:09:00 [facility] Body height 2022-12-31 160 cm University of 05:09:00 [facility] Body weight 2022-12-31 67.586 kg University of 05:09:00 [facility] BMI 2022-12-31 26.39 kg/m2 University of 05:09:00 [facility] Oxygen saturation 2022-12-31 100 /min University of in Arterial blood 05:09:00 [facility] shanice by Pulse oximetry Branch Systolic blood 2022-12-22 132 mm[Hg] University of pressure 13:18: [facility] Diastolic blood 2022-12-22 92 mm[Hg] University o f pressure 13:18:00 [facility] Heart rate 2022-12-22 78 /min University of 13:18:00 [facility] Respiratory rate 2022-12-22 18 /min University of 13:18:00 [facility] Body height 2022-12-22 160 cm University of 13:18:00 [facility] Body weight 2022-12-22 69.4 kg University of 13:18:00 [facility] BMI 2022-12-22 27.10 kg/m2 University of 13:18:00 [facility] Systolic blood 2022-12-19 102 mm[Hg] University of pressure 10:00:00 [facility] Diastolic blood 2022-12-19 60 mm[Hg] University o f pressure 10:00:00 [facility] Heart rate 2022-12-19 85 /min University of 10:00:00 [facility] Respiratory rate 2022-12-19 13 /min University of 10:00:00 [facility] Oxygen saturation 2022-12-19 96 /min University of in Arterial blood 10:00:00 [facility] shanice by Pulse oximetry Branch Body temperature 2022-12-19 36.28 Alisha University of 07:30:00 [facility] Body height 2022-12-19 160 cm University of 07:30:00 [facility] Body weight 2022-12-19 67.132 kg University of 07:30:00 [facility] BMI 2022-12-19 26.22 kg/m2 University of 07:30:00 [facility] Systolic blood 2022-12-15 125 mm[Hg] University of pressure 15:48:00 [facility] Diastolic blood 2022-12-15 77 mm[Hg] University o f pressure 15:48:00 [facility] Heart rate 2022-12-15 75 /min University of 15:48:00 [facility] Body height 2022-12-15 160 cm University of 15:48:00 [facility] Body weight 2022-12-15 68.448 kg University of 15:48:00 [facility] BMI 2022-12-15 26.73 kg/m2 University of 15:48:00 [facility] Oxygen saturation 2022-12-15 98 /min [place] of in Arterial blood 15:48:00 [facility] by Pulse oximetry Branch Systolic blood 2022-12-14 132 mm[Hg] University of pressure 08:04:00 [facility] Diastolic blood 2022-12-14 87 mm[Hg] University o f pressure 08:04:00 [facility] Heart rate 2022-12-14 83 /min University of 08:04:00 [facility] Body temperature 2022-12-14 36.67 Alisha University of 08:04:00 [facility] Respiratory rate 2022-12-14 20 /min University of 08:04:00 [facility] Body height 2022-12-14 160 cm University of 08:04:00 [facility] Body weight 2022-12-14 67.132 kg University of 08:04:00 [facility] BMI 2022-12-14 26.22 kg/m2 University of 08:04:00 [facility] Oxygen saturation 2022-12-14 97 /min University of in Arterial blood 08:04:00 [facility] shanice by Pulse oximetry Branch Systolic blood 2022-11-03 143 mm[Hg] University of pressure 17:45:00 [facility] Diastolic blood 2022-11-03 89 mm[Hg] University o f pressure 17:45:00 [facility] Heart rate 2022-11-03 89 /min University of 17:45:00 [facility] Respiratory rate 2022-11-03 16 /min University of 17:45:00 [facility] Oxygen saturation 2022-11-03 99 /min University of in Arterial blood 17:45:00 [facility] by Pulse oximetry Branch Body temperature 2022-11-03 36.61 Alisha University of 14:13:00 [facility] Body height 2022-11-03 160 cm University of 14:13:00 [facility] Body weight 2022-11-03 68.04 kg University of 14:13:00 [facility] BMI 2022-11-03 26.57 kg/m2 University of 14:13:00 [facility] Systolic blood 2022-10-28 115 mm[Hg] University of pressure 21:02:00 [facility] Diastolic blood 2022-10-28 69 mm[Hg] University o f pressure 21:02:00 [facility] Heart rate 2022-10-28 93 /min University of 21:02:00 [facility] Body temperature 2022-10-28 36.89 Alisha University of 21:02:00 [facility] Body height 2022-10-28 160 cm University of 21:02:00 [facility] Body weight 2022-10-28 70.308 kg University of 21:02:00 [facility] BMI 2022-10-28 27.46 kg/m2 University of 21:02:00 [facility] Oxygen saturation 2022-10-28 100 /min University of in Arterial blood 21:02:00 [facility] by Pulse oximetry Branch Systolic blood 2022-10-13 133 mm[Hg] University of pressure 07:58:00 [facility] Diastolic blood 2022-10-13 72 mm[Hg] University o f pressure 07:58:00 [facility] Heart rate 2022-10-13 109 /min University of 07:58:00 [facility] Body temperature 2022-10-13 36.78 Alisha University of 07:58:00 [facility] Respiratory rate 2022-10-13 16 /min University of 07:58:00 [facility] Body weight 2022-10-13 67.132 kg University of 07:58:00 [facility] BMI 2022-10-13 26.22 kg/m2 University of 07:58:00 [facility] Oxygen saturation 2022-10-13 99 /min University of in Arterial blood 07:58:00 [facility] by Pulse oximetry Branch Systolic blood 2022-10-10 120 mm[Hg] University of pressure 00:44:00 [facility] Diastolic blood 2022-10-10 82 mm[Hg] University o f pressure 00:44:00 [facility] Heart rate 2022-10-10 110 /min University of 00:44:00 [facility] Body temperature 2022-10-10 36.33 Alisha University of 00:44:00 [facility] Respiratory rate 2022-10-10 18 /min University of 00:44:00 [facility] Body height 2022-10-10 160 cm University of 00:44:00 [facility] Body weight 2022-10-10 67.132 kg University of 00:44:00 [facility] BMI 2022-10-10 26.22 kg/m2 University of 00:44:00 [facility] Oxygen saturation 2022-10-10 99 /min University of in Arterial blood 00:44:00 [facility] by Pulse oximetry Branch Systolic blood 2022-09-10 165 mm[Hg] University of pressure 00:13:00 [facility] Diastolic blood 2022-09-10 99 mm[Hg] University o f pressure 00:13:00 [facility] Heart rate 2022-09-10 125 /min University of :13:00 [facility] Body temperature 2022-09-10 36.61 Alisha University of 00:13:00 [facility] Respiratory rate 2022-09-10 20 /min University of 00:13:00 [facility] Body weight 2022-09-10 65.772 kg University of :13:00 [facility] BMI 2022-09-10 25.69 kg/m2 University of 00:13:00 [facility] Oxygen saturation 2022-09-10 99 /min University of in Arterial blood 00:13:00 [facility] by Pulse oximetry Branch Systolic blood 2022-08-18 134 mm[Hg] University of pressure 22:36:00 [facility] Diastolic blood 2022-08-18 86 mm[Hg] University o f pressure 22:36:00 [facility] Heart rate 2022-08-18 100 /min University of 22:36:00 [facility] Body temperature 2022-08-18 37.11 Alisha University 22:36:00 [facility] Respiratory rate 2022-08-18 20 /min [facility] 22:36:00 [facility] Body height 2022-08-[address] [facility] 22:36:00 [facility] Body weight 2022-08-[address] [facility] 22:36:00 [facility] BMI 2022-08-18 26.22 kg/m2 [facility] 22:36:00 [facility] Oxygen saturation 2022-08-18 100 /min [facility] in Arterial blood 22:36:00 [facility] by Pulse oximetry Branch Diastolic blood 2022-01-20 85 mm[Hg] [facility] pressure 18:11:00 Hospital Heart rate 2022-01-20 88 /min [facility] 18:11:00 Hospital Body temperature 2022-01-20 36.28 Alisha [facility] 18:11:00 [facility] Respiratory rate 2022-01-20 20 /min [facility] 18:11:00 Hospital Body height 2022-01-20 160 cm [facility] 18:11:00 [facility] Body weight 2022-01-20 66.225 kg [facility] 18:11:00 [facility] BMI 2022-01-20 25.86 kg/m2 [facility] 18:11:00 Hospital Oxygen saturation 2022-01-20 99 /min [facility] in Arterial blood 18:11:00 [facility] by Pulse oximetry Systolic blood 2022-01-20 123 mm[Hg] [facility] pressure 18:11:00 [facility] Systolic blood 2020-02-16 147 mm[Hg] [facility] [...] 14:30:00 Systolic blood 2020-02-14 113 mm[Hg] Location: E; [facility] pressure 09:21:00 Position: Sitting [...] BP Systolic 2019-06-28 130 mm[Hg] Location: RUE; [facility] 16:14:00 Position: Sitting BP Diastolic 2019-06-28 82 mm[Hg] Location: RUE; [facility] 16:14:00 Position: Sitting Height 2019-06-28 67 [...] CBC WITH DIFF 2023-07-05 18:17:00 Donta Qiu [facility] POCT TEST 2023-07-05 18:05:00 Donta Qiu [facility] CONSENT/REFUSAL FOR 2023-07-05 17:29:05 Doctor Unassigned, No [facility] [place] [facility] Name [facility] CT ABDOMEN PELVIS W 2023-01-21 21:07:22 Evangelina Abad [facility] CONTRAST [facility] POCT TEST 2023-01-21 19:34:00 Gutierrez Moncada [facility] LIPASE 2023-01-21 19:32:00 Gutierrez Moncada [facility] TROPONIN I 2023-01-21 19:32:00 Evangelina Abad [facility] COMP. METABOLIC PANEL 2023-01-21 19:32:00 Gutierrez Moncada [facility] ([id number]) [facility] CBC WITH DIFF 2023-01-21 19:32:00 Gutierrez Moncada [facility] URINALYSIS 2023-01-21 19:32:00 Gutierrez Moncada [facility] CONSENT/REFUSAL FOR 2023-01-21 18:36:13 Doctor Unassigned, No [facility] [place] [facility] Name [facility] LIPASE 2023-01-15 14:47:00 Luiza Lal [facility] COMP. METABOLIC PANEL 2023-01-15 14:47:00 Luiza Lal [facility] ([id number]) [facility] CBC WITH DIFF 2023-01-15 14:47:00 Luiza Lal [facility] CONSENT/REFUSAL FOR 2023-01-15 13:41:26 Doctor Unassigned, No [facility] [place] [facility]RE[facility] Name [facility] CONSENT/REFUSAL FOR 2023-01-15 10:06:16 Doctor Unassigned, No [facility] [place] [facility] TREAT[facility] Name [facility] EXTERNAL PROVIDER 2023-01-07 05:01:00 Doctor Unassigned, No [facility] [place] RECORDS Name [facility] EXTERNAL PROVIDER 2023-01-04 05:01:00 Doctor Unassigned, No [facility] [place] RECORDS Name [facility] CONSENT/REFUSAL FOR 2022-12-31 05:04:15 Doctor Unassigned, No [facility] [place] [facility] Name [facility] CT ANGIOGRAPHY 2022-12-30 17:15:00 Amrit Ma [facility] CORONARIES WITHOUT Medical Bran h CARDIAC CALCIUM SCORING HB CREATININE 2022-12-30 16:24:00 Amrit Ma [facility] SERUM/BLOOD FOR IMAGING Medical Branch CONSENT/REFUSAL FOR 2022-12-30 15:17:01 Doctor Unassigned, No [facility] [place] [facility] TREAT[facility] Name Medical [facility] EXTERNAL PROVIDER 2022-12-29 05:01:00 Doctor Unassigned, No [facility] [place] RECORDS Name Medical [facility] AUTHORIZATION TO RELEASE 2022-12-21 05:01:00 Doctor Unassigned, No [facility] Name Medical Branch CT ANGIOGRAM CHEST 2022-12-19 09:28:16 Iza Medina [facility] TROPONIN I 2022-12-19 08:40:00 Iza Medina [facility] D-DIMER 2022-12-19 08:40:00 Iza Medina [facility] CONSENT/REFUSAL FOR 2022-12-19 07:30:10 Doctor Unassigned, No [facility] [place] [facility] TREATMENT Name Medical Branch D-DIMER 2022-12-14 10:47:00 Iza Medina [facility] TROPONIN I 2022-12-14 10:16:00 Iza Medina [facility] LIPASE 2022-12-14 08:31:00 Iza Medina [facility] TROPONIN I 2022-12-14 08:31:00 Iza Medina [facility] COMP. METABOLIC PANEL 2022-12-14 08:31:00 Iza Medina [facility] ([id number]) Medical Branch CBC WITH DIFF 2022-12-14 08:31:00 Iza Medina [facility] THYROID STIMULATING 2022-12-14 08:31:00 Amrit Ma [facility] HORMONE Medical Branch NOTICE OF PRIVACY 2022-12-14 07:50:02 Doctor Unassigned, No [facility] PRACTICES Name Medical Branch CONSENT/REFUSAL FOR 2022-12-14 07:49:31 Doctor Unassigned, No [facility] [place] [facility] Name [facility] URINALYSIS 2022-11-03 15:27:00 Claudia Dotson [facility] URINE DRUG (IMMUNOASSAY) 2022-11-03 15:27:00 Claudia Dotson [facility] DRUG Medical [facility] nch SCREEN W/O REFLEX TEST, SERUM 2022-11-03 14:38:00 Claudia Dotson [facility] COMP. METABOLIC PANEL 2022-11-03 14:38:00 Claudia Dotson [facility] ([id number]) [facility] CBC WITH DIFF 2022-11-03 14:38:00 Claudia Dotson [facility] D-DIMER 2022-11-03 14:38:00 Claudia Dotson [facility] CONSENT/REFUSAL FOR 2022-11-03 14:04:36 Doctor Unassigned, No [facility] [place] DI[facility] TREATMENT Name Medical Branch CONSENT/REFUSAL FOR 2022-10-28 20:34:23 Doctor Unassigned, No [facility] [place] DIAGNOSIS [facility] TREATMENT Name [facility] CONSENT/REFUSAL FOR 2022-10-13 07:49:25 Doctor Unassigned, No [facility] [place] DIAGNOSIS [facility] TREATMENT Name Medical Branch CONSENT/REFUSAL FOR 2022-10-10 00:16:57 Doctor Unassigned, No [facility] [place] DI[facility]NOS[facility] TREATMENT Name Medical Branch MRI LUMBAR SPINE WO 2022-10-07 00:35:00 Jorge Luis Mcdonnell [facility] CONTRAST MRI CERVICAL SPINE WO 2022-10-07 00:22:00 [facility] CONTRAST CONSENT/REFUSAL FOR 2022-09-10 00:07:30 Doctor Unassigned, No [facility] [place] DIAGNOSIS [facility] TREATMENT Name Medical Branch CONSENT/REFUSAL FOR 2022-08-18 22:20:24 Doctor Unassigned, No [facility] DIAGNOSIS AND TREATMENT Name Medical Branch CT SPINE EXTERNAL STUDY 2021-11-28 20:02:53 [facility] CT SPINE EXTERNAL STUDY 2021-11-28 19:57:48 [facility] CT SPINE EXTERNAL STUDY 2021-11-28 19:52:18 [facility] REFERRAL- 2021-11-21 05:01:00 Doctor Unassigned, No [facility] [place] REQUEST/RESPONSE Name Medical Branch MRI SPINE EXTERNAL STUDY 2021-10-09 18:17:21 [facility] [QL] CBC (INCLUDES 2020-02-16 00:00:00 [facility] Transvaginal [facility] Pelvic [facility] [id number] [facility] of [facility] section low transverse Plan of Care Planned Activity Planned Date Details Comments Source Future Scheduled 2023-07-01 Pneumococcal Vaccine: [facility] Test 21:11:54 Pediatrics (0 to 5 Years) and At-Risk Patients (6 to 64 Years) (1 - PCV) [code = Pneumococcal Vaccine: Pediatrics (0 to 5 Years) and At-Risk Patients (6 to 64 Years) (1 - PCV)] Future Scheduled 2023-07-[address] [facility] Test 21:11:54 (procedure) [code = 868374863] Future Scheduled 2023-07-01 [facility] Test 21:11:54 malignant neoplasm of cervix (procedure) [code = 844577672] Future Scheduled 2023-07-01 COVID-19 VACCINE (3 - [facility] Test 21:11:54 ) [code = COVID-19 VACCINE ()] Future Scheduled 2023-07-01 INFLUENZA VACCINE (#1) [facility] Test 21:11:54 [code = INFLUENZA VACCINE (#1)] Future Scheduled 2023-07-01 Pneumococcal Vaccine: [facility] Test 21:11:54 Pediatrics (0 to 5 Years) and At-Risk Patients (6 to 64 Years) (1 - PCV) [code = Pneumococcal Vaccine: Pediatrics (0 to 5 Years) and At-Risk Patients (6 to 64 Years) (1 - PCV)] Future Scheduled 2023-07-[address] [facility] Test 21:11:54 (procedure) [code = 143337214] Future Scheduled 2023-07-01 [facility] Test 21:11:54 malignant neoplasm of cervix (procedure) [code = 905656200] Future Scheduled 2023-07-01 COVID-19 VACCINE (3 - [facility] Test 21:11:54 ) [code = COVID-19 VACCINE ()] Future Scheduled 2023-07-01 INFLUENZA VACCINE (#1) [facility] Test 21:11:54 [code = INFLUENZA VACCINE (#1)] Future Scheduled 2023-07-01 Pneumococcal Vaccine: [facility] Test 21:11:54 Pediatrics (0 to 5 Years) and At-Risk Patients (6 to 64 Years) (1 - PCV) [code = Pneumococcal Vaccine: Pediatrics (0 to 5 Years) and At-Risk Patients (6 to 64 Years) (1 - PCV)] Future Scheduled 2023-07-[address] [facility] Test 21:11:54 (procedure) [code = 839321604] Future Scheduled 2023-07-01 [facility] Test 21:11:54 malignant neoplasm of cervix (procedure) [code = 616783270] Future Scheduled 2023-07-01 COVID-19 VACCINE (3 - [facility] Test 21:11:54 season) [code = COVID-19 VACCINE ( season)] Future Scheduled 2023-07-01 INFLUENZA VACCINE (#1) [facility] Test 21:11:54 [code = INFLUENZA VACCINE (#1)] Future Scheduled 2023-07-01 Pneumococcal Vaccine: [facility] Test 21:11:54 Pediatrics (0 to 5 Years) and At-Risk Patients (6 to 64 Years) (1 - PCV) [code = Pneumococcal Vaccine: Pediatrics (0 to 5 Years) and At-Risk Patients (6 to 64 Years) (1 - PCV)] Future Scheduled 2023-07-[address] [facility] Test 21:11:54 (procedure) [code = 855195888] Future Scheduled 2023-07-01 [facility] Test 21:11:54 malignant neoplasm of cervix (procedure) [code = 872990783] Future Scheduled 2023-07-01 COVID-19 VACCINE (3 - [facility] Test 21:11:54 season) [code = COVID-19 VACCINE ( season)] Future Scheduled 2023-07-01 INFLUENZA VACCINE (#1) [facility] Test 21:11:54 [code = INFLUENZA VACCINE (#1)] Future Scheduled 2023-07-01 Pneumococcal Vaccine: [facility] Test 21:11:54 Pediatrics (0 to 5 Years) and At-Risk Patients (6 to 64 Years) (1 - PCV) [code = Pneumococcal Vaccine: Pediatrics (0 to 5 Years) and At-Risk Patients (6 to 64 Years) (1 - PCV)] Future Scheduled 2023-07-[address] [facility] Test 21:11:54 (procedure) [code = 993999969] Future Scheduled 2023-07-01 [facility] Test 21:11:54 malignant neoplasm of cervix (procedure) [code = 717095111] Future Scheduled 2023-07-01 COVID-19 VACCINE (3 - [facility] Test 21:11:54 season) [code = COVID-19 VACCINE ( season)] Future Scheduled 2023-07-01 INFLUENZA VACCINE (#1) [facility] Test 21:11:54 [code = INFLUENZA VACCINE (#1)] Future Scheduled 2023-07-01 Pneumococcal Vaccine: [facility] Test 21:11:54 Pediatrics (0 to 5 Years) and At-Risk Patients (6 to 64 Years) (1 - PCV) [code = Pneumococcal Vaccine: Pediatrics (0 to 5 Years) and At-Risk Patients (6 to 64 Years) (1 - PCV)] Future Scheduled 2023-07-[address] [facility] Test 21:11:54 (procedure) [code = 387408654] Future Scheduled 2023-07-01 [facility] Test 21:11:54 malignant neoplasm of cervix (procedure) [code = 422228374] Future Scheduled 2023-07-01 COVID-19 VACCINE (3 - [facility] Test 21:11:54 ) [code = COVID-19 VACCINE ( season)] Future Scheduled 2023-07-01 INFLUENZA VACCINE (#1) [facility] Test 21:11:54 [code = INFLUENZA VACCINE (#1)] Future Scheduled 2023-07-01 Pneumococcal Vaccine: [facility] Test 21:11:54 Pediatrics (0 to 5 Years) and At-Risk Patients (6 to 64 Years) (1 - PCV) [code = Pneumococcal Vaccine: Pediatrics (0 to 5 Years) and At-Risk Patients (6 to 64 Years) (1 - PCV)] Future Scheduled 2023-07-[address] [facility] Test 21:11:54 (procedure) [code = 073140860] Future Scheduled 2023-07-01 [facility] Test 21:11:54 malignant neoplasm of cervix (procedure) [code = 894774681] Future Scheduled 2023-07-01 COVID-19 VACCINE (3 - [facility] Test 21:11:54 ) [code = COVID-19 VACCINE ( season)] Future Scheduled 2023-07-01 INFLUENZA VACCINE (#1) [facility] Test 21:11:54 [code = INFLUENZA VACCINE (#1)] Future Scheduled 2023-07-01 Pneumococcal Vaccine: [facility] Test 21:11:54 Pediatrics (0 to 5 Years) and At-Risk Patients (6 to 64 Years) (1 - PCV) [code = Pneumococcal Vaccine: Pediatrics (0 to 5 Years) and At-Risk Patients (6 to 64 Years) (1 - PCV)] Future Scheduled 2023-07-[address] [facility] Test 21:11:54 (procedure) [code = 108181022] Future Scheduled 2023-07-01 [facility] Test 21:11:54 malignant neoplasm of cervix (procedure) [code = 482840357] Future Scheduled 2023-07-01 COVID-19 VACCINE (3 - [facility] Test 21:11:54 ) [code = COVID-19 VACCINE ( season)] Future Scheduled 2023-07-01 INFLUENZA VACCINE (#1) [facility] Test 21:11:54 [code = INFLUENZA VACCINE (#1)] Future Scheduled 2023-06-18 Pneumococcal Vaccine: [facility] Test 03:36:13 Pediatrics (0 to 5 Years) and At-Risk Patients (6 to 64 Years) (1 - PCV) [code = Pneumococcal Vaccine: Pediatrics (0 to 5 Years) and At-Risk Patients (6 to 64 Years) (1 - PCV)] Future Scheduled 2023-06-[address] [facility] Test 03:36:13 (procedure) [code = 389506355] Future Scheduled 2023-06-18 [facility] Test 03:36:13 malignant neoplasm of cervix (procedure) [code = 677855848] Future Scheduled 2023-06-18 COVID-19 VACCINE (3 - [facility] Test 03:36:13 ) [code = COVID-19 VACCINE (3 - season)] Future Scheduled 2023-06-18 INFLUENZA VACCINE (#1) [facility] Test 03:36:13 [code = INFLUENZA VACCINE (#1)] Future Scheduled 2023-06-18 RSV VACCINES > 60 YR Met [facility] Test 03:36:13 (1 - 1-dose 60+ series) [code = RSV VACCINES > 60 YR (1 - 1-dose 60+ series)] Future Scheduled 2023-06-12 Pneumococcal Vaccine: [facility] Test 08:20:18 Pediatrics (0 to 5 Years) and At-Risk Patients (6 to 64 Years) (1 - PCV) [code = Pneumococcal Vaccine: Pediatrics (0 to 5 Years) and At-Risk Patients (6 to 64 Years) (1 - PCV)] Future Scheduled 2023-06-[address] [facility] Test 08:20:18 (procedure) [code = 625332633] Future Scheduled 2023-06-12 Screening for [facility] Test 08:20:18 malignant neoplasm of cervix (procedure) [code = 705057611] Future Scheduled 2023-06-12 COVID-19 VACCINE (3 - [facility] Test 08:20:18 Pfizer series) [code = COVID-19 VACCINE (3 - Pfizer series)] Future Scheduled 2023-06-12 INFLUENZA VACCINE (#1) [facility] Test 08:20:18 [code = INFLUENZA VACCINE (#1)] Future Scheduled 2023-02-19 Pneumococcal Vaccine: [facility] Test 07:49:13 Pediatrics (0 to 5 Years) and At-Risk Patients (6 to 64 Years) (1 - PCV) [code = Pneumococcal Vaccine: Pediatrics (0 to 5 Years) and At-Risk Patients (6 to 64 Years) (1 - PCV)] Future Scheduled 2023-02-[address] [facility] Test 07:49:13 (procedure) [code = 350486397] Future Scheduled 2023-02-19 Screening for [facility] Test 07:49:13 malignant neoplasm of cervix (procedure) [code = 013343450] Future Scheduled 2023-02-19 COVID-19 VACCINE (3 - [facility] Test 07:49:13 Pfizer series) [code = COVID-19 VACCINE (3 - Pfizer series)] Future Scheduled 2023-02-19 [facility] 07:49:13 [code = INFLUENZA VACCINE] Future Scheduled 2023-02-19 Pneumococcal Vaccine: [facility] Test 07:49:13 Pediatrics (0 to 5 Years) and At-Risk Patients (6 to 64 Years) (1 - PCV) [code = Pneumococcal Vaccine: Pediatrics (0 to 5 Years) and At-Risk Patients (6 to 64 Years) (1 - PCV)] Future Scheduled 2023-02-19 Hepatitis C screening [facility] Test 07:49:13 (procedure) [code = 398713676] Future Scheduled 2023-02-19 [facility] Test 07:49:13 malignant neoplasm of cervix (procedure) [code = 440127180] Future Scheduled 2023-02-19 COVID-19 VACCINE (3 - [facility] Test 07:49:13 Pfizer series) [code = COVID-19 VACCINE (3 - Pfizer series)] Future Scheduled 2023-02-19 INFLUENZA VACCINE [facility] Test 07:49:13 [code = INFLUENZA VACCINE] Future Scheduled 2023-02-19 Pneumococcal Vaccine: [facility] Test 07:49:13 Pediatrics (0 to 5 Years) and At-Risk Patients (6 to 64 Years) (1 - PCV) [code = Pneumococcal Vaccine: Pediatrics (0 to 5 Years) and At-Risk Patients (6 to 64 Years) (1 - PCV)] Future Scheduled 2023-02-19 Hepatitis C screening [facility] Test 07:49:13 (procedure) [code = 919303116] Future Scheduled 2023-02-19 [facility] Test 07:49:13 malignant neoplasm of cervix (procedure) [code = 669143968] Future Scheduled 2023-02-19 COVID-19 VACCINE (3 - [facility] Test 07:49:13 Pfizer series) [code = COVID-19 VACCINE (3 - Pfizer series)] Future Scheduled 2023-02-19 INFLUENZA VACCINE [facility] Test 07:49:13 [code = INFLUENZA VACCINE] Future Scheduled 2023-02-19 Pneumococcal Vaccine: [facility] Test 07:49:13 Pediatrics (0 to 5 Years) and At-Risk Patients (6 to 64 Years) (1 - PCV) [code = Pneumococcal Vaccine: Pediatrics (0 to 5 Years) and At-Risk Patients (6 to 64 Years) (1 - PCV)] Future Scheduled 2023-02-19 Hepatitis C screening [facility] Test 07:49:13 (procedure) [code = 871431971] Future Scheduled 2023-02-19 [facility] Test 07:49:13 malignant neoplasm of cervix (procedure) [code = 305213020] Future Scheduled 2023-02-19 COVID-19 VACCINE (3 - [facility] Test 07:49:13 Pfizer series) [code = COVID-19 VACCINE (3 - Pfizer series)] Future Scheduled 2023-02-19 [facility] 07:49:13 [code = INFLUENZA VACCINE] Future Scheduled 2022-12-30 Pneumococcal Vaccine: [facility] Test 10:15:19 Pediatrics (0 to 5 Years) and At-Risk Patients (6 to 64 Years) (1 - PCV) [code = Pneumococcal Vaccine: Pediatrics (0 to 5 Years) and At-Risk Patients (6 to 64 Years) (1 - PCV)] Future Scheduled 2022-12-30 Hepatitis C screening [facility] Test 10:15:19 (procedure) [code = 735269016] Future Scheduled 2022-12-30 [facility] Test 10:15:19 malignant neoplasm of cervix (procedure) [code = 668916957] Future Scheduled 2022-12-30 COVID-19 VACCINE (3 - [facility] Test 10:15:19 Booster for Pfizer series) [code = COVID-19 VACCINE (3 - Booster for Pfizer series)] Future Scheduled 2022-12-30 [facility]INE [facility] 10:15:19 [code = INFLUENZA VACCINE] Future Scheduled 2022-12-30 Pneumococcal Vaccine: [facility] Test 10:15:19 Pediatrics (0 to 5 Years) and At-Risk Patients (6 to 64 Years) (1 - PCV) [code = Pneumococcal Vaccine: Pediatrics (0 to 5 Years) and At-Risk Patients (6 to 64 Years) (1 - PCV)] Future Scheduled 2022-12-30 Hepatitis C screening [facility] Test 10:15:19 (procedure) [code = 731977790] Future Scheduled 2022-12-30 [facility] Test 10:15:19 malignant neoplasm of cervix (procedure) [code = 368634486] Future Scheduled 2022-12-30 COVID-19 VACCINE (3 - [facility] Test 10:15:19 Booster for Pfizer series) [...] Medical Center Test 10:15:19 (procedure) [code = 065327541] Future Scheduled 2022-12-30 [facility] Test 10:15:19 malignant neoplasm of cervix (procedure) [code = 070193328] Future Scheduled 2022-12-30 COVID-19 VACCINE (3 - [facility] Test 10:15:19 Booster for Pfizer series) [code = COVID-19 VACCINE (3 - Booster for Pfizer series)] Future Scheduled 2022-12-30 INFLUENZA VACCINE [facility] Test 10:15:19 [code = INFLUENZA VACCINE] Future Scheduled 2022-08-02 Pneumococcal Vaccine: [facility] Test 11:23:36 Pediatrics (0 to 5 Years) and At-Risk Patients (6 to 64 Years) (1 - PCV) [code = Pneumococcal Vaccine: Pediatrics (0 to 5 Years) and At-Risk Patients (6 to 64 Years) (1 - PCV)] Future Scheduled 2022-08-02 Hepatitis C screening [facility] Test 11:23:36 (procedure) [code = 891464532] Future Scheduled 2022-08-02 [facility] Test 11:23:36 malignant neoplasm of cervix (procedure) [code = 199923661] Future Scheduled 2022-08-02 COVID-19 VACCINE (3 - [facility] Test 11:23:36 Booster for Pfizer series) [code = COVID-19 VACCINE (3 - Booster for Pfizer series)] Future Scheduled 2022-08-02 INFLUENZA VACCINE [facility] Test 11:23:36 [code = INFLUENZA [...] Medical Center Test 21:51:51 (procedure) [code = 670449930] Future Scheduled 2022-07-24 [facility] Test 21:51:51 malignant neoplasm of cervix (procedure) [code = 246083743] Future Scheduled 2022-07-24 COVID-19 VACCINE (3 - [facility] Test 21:51:51 Booster for Pfizer series) [code = COVID-19 VACCINE (3 - Booster for Pfizer series)] Future Scheduled 2022-07-24 INFLUENZA VACCINE [facility] Test 21:51:51 [code = [...] Medical Center Test 15:03:03 (procedure) [code = 846159297] Future Scheduled 2022-07-15 [facility] Test 15:03:03 malignant neoplasm of cervix (procedure) [code = 190546181] Future Scheduled 2022-07-15 COVID-19 VACCINE (3 - [facility] Test 15:03:03 Booster for Pfizer series) [code = COVID-19 VACCINE (3 - Booster for Pfizer series)] Future Scheduled 2022-07-15 INFLUENZA VACCINE [facility] Test 15:03:03 [code = [...] Medical Center Test 09:54:03 (procedure) [code = 726332876] Future Scheduled 2022 [facility] Test 09:54:03 malignant neoplasm of cervix (procedure) [code = 913662758] Future Scheduled 2022 COVID-19 VACCINE (3 - [facility] Test 09:54:03 Booster for Pfizer series) [code = COVID-19 VACCINE (3 - Booster for Pfizer series)] Future Scheduled 2022 [facility]ACCINE [facility] 09:54:03 [code = INFLUENZA VACCINE] Encounters Start End Encounter Admission Attending Care Care Encounter Source Date/Time Date/Time Type Type Clinicians Facility Department ID 2021-07-06 Emergency [facility] [id number] [facility] 13:36:32 ity [facility] 2021-07-04 Emergency [facility] [id number] [facility] [facility] Emergency [facility] [id number] Univers 10:48:55 [facility] 2021-01-09 Inpatient [facility] MALISSA [id number] [facility] 10:52:00 [id number] [facility] 2020-12-27 Inpatient [facility] MALISSA [id number] [facility] 20:29:00 65 [facility] 2020-12-26 Inpatient CLAUDETTE Escobar, [facility] ENDO [id number] [facility] 10:00:00 Rik 01 [facility] 2020-12-22 Inpatient [facility] [id number] [facility] 23:08:15 49 [facility] 2020-08-23 Inpatient [facility] MALIS[facility] [id number] [facility] 09:10:00 26 [facility] [place] 2020-08-05 Inpatient HCACL MALISSA [id number] [facility] 20:55:00 [id number] [facility] 2020-02-20 Outpatient KRISTIN, [facility] [address] [facility] 10:04:01 LISHA 2023-08-16 2023-08-16 Outpatient MOOKIE TORRES [facility] [id number] Univers 12:00:00 12:00:00 MOOKIE [place] misty [facility] 2023-07-23 2023-07-23 Outpatient Anton ESPINOZA [facility] [id number] Univers 13:00:00 13:00:00 SALUD misty [facility] 2023-07-20 2023-07-20 Telephone Patrick [facility] 1.2.840.114 [id number] Univers 00:00:00 00:00:00 Mookie [facility] 350.1.13.10 ity [facility] 4.2.7.2.686 Zay as BLANCA?BLEA [phone] [facility] [address] MEDICAL OFFICE [facility] 2023-07-16 2023-07-16 Outpatient R MARINA BERG [facility] [id number] Univers 14:00:00 14:00:00 MARINA BERG [facility] 2023-07-09 2023-07-09 Outpatient MOOKIE TORRES [facility] [id number] Univers 10:00:00 10:00:00 MOOKIE HOUSTON [facility] 2023-07-05 2023-07-05 Emergency X LAZARUS [facility] ERT [id number] Univers 12:50:00 14:12:00 DONTA [facility] 2023-07-05 2023-07-05 Emergency [facility] 1.2.587.460 [id number] Univers 12:50:00 14:12:00 Donta GUERRERO 350.1.13.10 i ty of [place] 4.2.7.2.686 [place] [id number] [facility] [address] 2023-07-04 2023-07-04 Patient Doctor [facility] 1.2.840.114 [id number] Univers 00:00:00 00:00:00 Secure Msg Unassigned, HEALTH 350.1.13.10 ity of [place] YOLANDA 4.2.7.2.686 Zay as BLANCA?BLEA [id number] Ga dical [address] MEDICAL OFFICE BUILDING 2023-07-02 2023-07-02 Telephone [facility] 1.2.840.114 [id number] Univers 00:00:00 00:00:00 Rania HEALTH 350.1.13.10 it y of [place] 4.2.7.2.686 Zay as BLANCA?BLEA [id number] [address] OFFICE [facility] 2023-07-02 2023-07-02 Clinic [facility] 1.2.920.211 [id number] Univers 00:00:00 00:00:00 Assessment Devang HEALTH 350.1.13.10 ity of [facility] 4.2.7.2.686 Zay as BLANCA?BLEA [id number] [address] OFFICE [facility] 2023-07-01 2023-07-01 Outpatient Anton GARCIA [facility] [id number] Univers 11:00:00 11:39:48 DEVANG calixto [facility] 2023-07-01 2023-07-01 Urgent Lori [facility] 1.2.840.11 4 [id number] Univers 11:00:00 11:39:48 Care Unknown, Attending HEALTH 350.1.13.10 ity of [place] 4.2.7.2.686 Zay as BLANCA?BLEA [id number] [address] OFFICE [facility] 2023-06-29 2023-06-29 Outpatient Anton GARCIA [facility] [id number] Univers 13:20:00 14:35:47 DEVANG calixto [facility] 2023-06-29 2023-06-29 Urgent Lori [facility] 1..840.11 4 [id number] Univers 13:20:00 14:35:47 Care Unknown, Attending HEALTH 350.1.13.10 ity of [facility] 4.2.7.2.686 Zay as BLANCA?BLEA [id number] [address] OFFICE [facility] 2023-06-29 2023-06-29 Outpatient SALENA Strickland [id number] [facility] 12:00:00 12:00:[address] 2023-06-10 2023-06-10 Outpatient R MARINA BERG [facility] [id number] Univers 10:40:00 11:18:23 MARINA BERG [facility] 2023-06-10 2023-06-10 Office Junior [facility] 1.2.840.[id number] [facility] [place] [place] 10:40:00 11:18:23 Visit [facility] 350.1.13.10 ity of [facility] 4.2.7.2.686 Zay as BLANCA?BLEA [id number] [address] OFFICE [facility] 2023-06-10 2023-06-10 Patient Ruth [facility] 1.2.840.114 [id number] Univers 00:00:00 00:00:00 Outreach Mindy Anton GUERRERO 350.1.13.10 ity [facility] 4.2.7.2.[place] [phone] [address] 2023-06-10 2023-06-10 Patient Doctor NAVARRO 1.2.840.114 [id number] Univers 00:00:00 00:00:00 Secure Msg Unassigned, ALEM 350.1.13.10 ity of [place] [facility] 4.2.7.2.686 Zay as [id number] [address] 2023-06-08 2023-06-08 Outpatient R MARIBELPiyush [facility] [id number] Univers 11:30:00 11:30:00 LINDA calixto [facility] 2023-05-27 2023-05-27 Telephone [facility] 1.2.739.871 [id number] [id number] Univers 00:00:00 00:00:00 Amrit GUERRERO 350.1.13.10 ity of [place].2.7.2.[place] [phone] [facility] 059 [facility] 2023-05-25 2023-05-25 Telephone [facility] 1.2.897.995 [id number] [id number] Univers 00:00:00 00:00:00 Amrit GUERRERO 350.1.13.10 ity of [place] 4.2.7.2.686 [place] [phone] Ga dical NAL 9 [facility] 2023-05-24 2023-05-24 Telephone [facility] 1.2.922.249 [id number] [id number] Univers 00:00:00 00:00:00 Amrit GUERRERO 350.1.13.10 ity of [facility] 4.2.7.2.686 [place] [phone] Ga dicca NAL 9 [facility] 2023-05-19 2023-05-19 Telephone [facility] 1.2.840.114 10 [id number] Univers 00:00:00 00:00:00 Linda GANDARA 350.1.13.10 it y of [place].2.7.2.[place] [phone] [address] 2023-03-02 2023-03-02 Urgent Talha Alas [facility] 1.2.840.114 1 [id number] Univers 12:00:00 12:20:00 Care Unknown, Attending HEALTH 350.1.13.10 ity of [place] 4.2.7.2.686 Zay as BLANCA?BLEA [phone] [address] MEDICAL OFFICE [facility] 2023-03-02 2023-03-02 Outpatient R BISHOP [facility] [id number] Univers 12:00:00 12:00:00 TALHA ity [facility] 2023-03-02 2023-03-02 Letter [facility] 1.2.840.114 [id number] Univers 00:00:00 00:00:00 (Out) [facility] 350.1.13.10 it y of [place] 4.2.7.2.686 Zay as BLANCA?BLEA [phone] [address] MEDICAL OFFICE [facility] 2023-01-21 2023-01-21 Emergency X [facility] ERT [id number] Univers 13:46:00 18:49:00 EVANGELINA ity [facility] 2023-01-21 2023-01-21 Emergency [facility] 1.2.224.913 [id number] Univers 13:46:00 18:49:00 [facility] 350.1.13.10 it y [facility] 4.2.7.2.686 [facility] [phone] [address] ([facility]) 2023-01-21 2023-01-21 Outpatient R KRISTY [facility] [id number] Univers 13:30:00 13:30:00 SMITHA [facility] 2023-01-15 2023-01-15 Emergency X MEDINA [facility] ERT [id number] Univers 08:50:00 13:10:00 LUIZA [facility] 2023-01-15 2023-01-15 [facility] 1.2.914.226 [id number] [id number] Univers 08:50:00 13:10:00 Luiza GUERRERO 350.1.13.10 i ty of [facility] 4.2.7.2.6 [facility] [id number] [address] 2023-01-15 2023-01-15 Outpatient R KENZIE BADILLO [facility] [id number] Univers 09:00:00 09:00:00 ity [facility] 2023-01-15 2023-01-15 Emergency X SABAARMANDOTAD [facility] ERT [id number] Univers 05:24:00 06:28:00 IZA [facility] 2023-01-15 2023-01-15 Emergency [facility] 1.2.658.814 [id number] Univers 05:24:00 06:28:00 Iza GUERRERO 350.1.13.10 ity of [facility] 4.2.7.2.6 [facility] [phone] [address] 2023-01-12 2023-01-12 Outpatient R FELISHA [facility] [id number] Univers 10:30:00 10:30:00 ИВАН [facility] 2023-01-08 2023-01-08 Outpatient R FRANCESCA [facility] [id number] Univers 08:00:00 08:00:00 AMRIT [facility] 2023-01-07 2023-01-07 Orders Doctor NAVARRO 1.2.840.114 [id number] Univers 00:00:00 00:00:00 Only Unassigned, ALEM 350.1.13.10 ity of [place] [facility]OSPITAL 4.2.7.2.686 Zay as [id number] [facility] [address] 2023-01-04 2023-01-04 Orders Doctor NAVARRO 1.2.840.114 [id number] Univers 00:00:00 00:00:00 Only Unassigned, ALEM 350.1.13.10 ity of [place] HOSPITAL 4.2.7.2.686 Zay as [id number] [facility] [address] 2023-01-04 2023-01-04 Telephone [facility] 1.2.985.357 [id number] [id number] Univers 00:00:00 00:00:00 Иван [employer] 350.1.13.10 it y of [place] 4.2.7.2.686 [facility] [phone] Med ical [facility] [address] 2023-01-01 2023-01-01 Telephone Sammie [facility] 1.2.840.11 4 [id number] Univers 00:00:00 00:00:00 Jorge GANDARA 350.1.13.10 it y of WOMEN'S 4.2.7.2.686 [facility] [phone] [facility] [address] 2022-12-31 2022-12-31 Emergency X Jasmin GREGORIO [facility] ERT [id number] Univers 00:13:00 01:07:00 ity of [facility] 2022-12-31 2022-12-31 Emergency Jasmin Gregorio [facility] 1.2.840.114 10 [id number] Univers 00:13:00 01:07:00 Filomena GUERRERO 350.1.13.10 i ty of [facility] 4.2.7.2.686 [facility] [id number] [facility] [address] 2022-12-31 2022-12-31 Telephone Francesca [facility] 1.2.918.550 [id number] [id number] Univers 00:00:00 00:00:00 Amrit GUERRERO 350.1.13.10 ity of [facility] 4.2.7.2.686 [facility] [phone] Ga dical NAL [address] BUILDING 2022-12-31 2022-12-31 Patient Doctor NAVARRO 1.2.840.114 [id number] Univers 00:00:00 00:00:00 Secure Msg Unassigned, ALEM 350.1.13.10 ity of [place] [facility] 4.2.7.2.686 Zay as [phone] [facility] [address] 2022-12-30 2022-12-30 [facility] 1.2.840.114 [id number] Univers 10:38:24 23:59:00 Encounter Amrit GUERRERO 350.1.13.10 ity of [place] 4.2.7.2.686 [facility] [phone] [facility] [address] 2022-12-30 2022-12-30 Outpatient R [facility] [id number] Univers 10:38:24 23:59:00 SENDIL ity of [facility] 2022-12-30 2022-12-30 Emergency X [facility] ERT [id number] Univers 10:21:00 10:33:00 AWILDA anthonyy [facility] 2022-12-30 2022-12-30 Emergency [facility] 1.2.840.114 10 [id number] Univers 10:21:00 10:33:00 Awilda GUERRERO 350.1.13.10 ity of [place] 4.2.7.2.686 [facility] [phone] [facility] [address] 2022-12-30 2022-12-30 Telephone [facility] 1.2.840.11 4 [id number] Univers 00:00:00 00:00:00 Jorge GANDARA 350.1.13.10 it y of WOMEN'S 4.2.7.2.686 [facility] [id number] [facility] [address] 2022-12-29 2022-12-29 Outpatient R JORGE CHANRDA [facility] B [id number] Univers 13:30:00 13:30:00 JORGE CHANDRA [facility] 2022-12-29 2022-12-29 Orders Doctor NAVARRO 1.2.840.114 [id number] Univers 00:00:00 00:00:00 Only Unassigned, ALEM 350.1.13.10 ity of [place] [facility] 4.2.7.2.686 Zay as [phone] [facility] [address] 2022-12-29 2022-12-29 Telephone [facility] 1.2.589.624 [id number] [id number] Univers 00:00:00 00:00:00 Иван HEALTH 350.1.13.10 it y of [place].2.7.2.[place] C[place] - [phone] [facility] [address] 2022-12-28 2022-12-28 Telephone [facility] 1.2.984.487 [id number] [id number] Univers 00:00:00 00:00:00 Иван HEALTH 350.1.13.10 it y of [place].2.7.2.686 [place] C[place] - [phone] [facility] [address] 2022-12-25 2022-12-25 Patient Graciela [facility] 1.2.840.114 [id number] Univers 00:00:00 00:00:00 Secure Msg Linda HEALTH 350.1.13.10 ity of [place] 4.2.7.2.686 Zay as BLANCA?BLEA [phone] Ga dicca RITOEY [address] MEDICAL OFFICE BUILDING 2022-12-23 2022-12-23 Telephone Sammie [facility] 1.2.840.11 4 [id number] Univers 00:00:00 00:00:00 Cheroctavio GANDARA 350.1.13.10 it [place] [facility] [id number] [facility] [address] 2022-12-23 2022-12-23 Patient Gurpreet [facility] 1.2.840.114 [id number] Univers 00:00:00 00:00:00 Secure Msg Norberto GARNERJUAREZ 350.1.13.10 ity of [place].7.2.[place] [phone] Ga dical [facility] 134 [facility] 2022-12-22 2022-12-22 Customer Support Agent Lab, Ang - Db [facility] 1.2.840.1 14 [id number] Univers 09:30:00 09:45:00 Visit Jorge Chandra [facility] 350.1.13.1 0 ity of [place] 4.2.7.2.686 Zay as BLANCA?BLEA [phone] Ga dical KNEY 353 [facility] OFFICE [facility] 2022-12-22 2022-12-22 Office Sammie [facility] 1.2.840.114 [id number] Univers 08:00:00 08:53:38 Visit Jorge GANDARA 350.1.13.10 it y of [place] 4.2.7.2.686 [place] [phone] [address] 2022-12-22 2022-12-22 Outpatient R JORGE CHANDRA [facility] B [id number] Univers 08:00:00 08:53:38 JORGE CHANDRA [facility] 2022-12-22 2022-12-22 Patient Doctor NAVARRO 1.2.840.114 [id number] Univers 00:00:00 00:00:00 Secure Msg Unassigned, ALEM 350.1.13.10 ity of [place] HOSPITAL 4.2.7.2.686 Zay as [id number] [facility] [address] 2022-12-21 2022-12-21 Orders Doctor NAVARRO 1.2.840.114 [id number] Univers 00:00:00 00:00:00 Only Unassigned, ALEM 350.1.13.10 ity of [place] HOSPITAL 4.2.7.2.686 Zay as [id number] [facility] [address] 2022-12-19 2022-12-19 Emergency X [facility] ERT [id number] Univers 02:32:00 05:47:00 AKCESAR ity [facility] 2022-12-19 2022-12-19 Emergency [facility] 1.2.408.459 [id number] Univers 02:32:00 05:47:00 Iza GUERRERO 350.1.13.10 ity [place] 4.2.7.2.686 [place] [facility] [id number] [facility] [address] 2022-12-18 2022-12-18 Outpatient R COURTNEY KENZIE [facility] [id number] Univers 09:45:00 09:45:00 ity of [facility] 2022-12-17 2022-12-17 Telephone Kenzie Badillo [facility] 1.2.840.114 [id number] Univers 00:00:00 00:00:00 E HEALTH 350.1.13.10 it y of [place] 4.2.7.2.686 [place] - [phone] Med ical [facility] [address] 2022-12-15 2022-12-15 Outpatient R FRANCESCA [facility] [id number] Univers 11:00:00 11:30:30 SENDIL ity [facility] 2022-12-15 2022-12-15 Office [facility] 1.2.840.114 [id number] Univers 11:00:00 11:30:30 Visit Sendil Ismael GUERRERO 350.1.13.10 ity of [place] 4.2.7.2.686 [place] [phone] Ga dicca NAL [address] [place] [address] 2022-12-15 2022-12-15 Telephone [facility] 1.2.287.286 [id number] [id number] Univers 00:00:00 00:00:00 Sendil Ismael GUERRERO 350.1.13.10 ity of [facility] 4.2.7.2.686 [place] [phone] Ga dicca NAL [address] [place] [address] 2022-12-14 2022-12-14 Emergency X [facility] ERT [id number] Univers 03:03:00 07:05:00 WAKILI ity [facility] 2022-12-14 2022-12-14 Emergency [facility] 1.2.731.683 [id number] Univers 03:03:00 07:05:00 Iza GARNERTON 350.1.13.10 ity of [facility] 4.2.7.2.686 [facility] [id number] [place] [address] 2022-11-03 2022-11-03 Emergency X KIKI, [facility] ERT [id number] Univers 08:15:00 12:05:00 CLAUDIA ity of [facility] 2022-11-03 2022-11-03 Emergency Jimyak, [facility] 1.2.553.599 [id number] Univers 08:15:00 12:05:00 Claudia GUERRERO 350.1.13.10 i ty of [facility] 4.2.7.2.686 [place] [facility] [id number] [address] 2022-10-28 2022-10-28 Outpatient R GRACIELA [facility] [id number] Univers 15:00:00 15:28:11 LINDA calixto of [facility] 2022-10-28 2022-10-28 Office Graciela [facility] 1.2.840.114 [id number] Univers 15:00:00 15:28:11 Visit [facility] 350.1.13.10 it y of [place] 4.2.7.2.686 Zay as BLANCA?BLEA [id number] [address] MEDICAL OFFICE BUILDING 2022-10-28 2022-10-28 Orders Doctor NAVARRO 1.2.840.114 [id number] Univers 00:00:00 00:00:00 Only Unassigned, ALEM 350.1.13.10 ity of [place] [facility] 4.2.7.2.686 Zay as 451.0811385 [facility] [address] 2022-10-28 2022-10-28 Abstract Graciela [facility] 1.2.840.114 [id number] Univers 00:00:00 00:00:00 Linda [facility] 350.1.13.10 it y of [place] 4.2.7.2.686 Zay as BLANCA?BLEA 360.3830388 [address] MEDICAL OFFICE BUILDING 2022-10-28 2022-10-28 Patient Henry [facility] 1.2.840.114 [id number] Univers 00:00:00 00:00:00 Outreach Florence CISNEROS 350.1.13.10 i ty [facility] 4.2.7.2.686 Zay as BLANCA?BLEA [phone] Ga denilson [place] [address] [place] [address] MEDICAL OFFICE BUILDING 2022-10-28 2022-10-28 [facility] 1.2.719.450 2578 [id number] Univers 00:00:00 00:00:00 Phylicia GUERRERO 350.1.13.10 i ty of [place] 4.2.7.2.686 [place] [phone] Ga denilson CASANOVA [address] [place] [address] 2022-10-13 2022-10-13 Emergency X [facility] ERT [id number] Univers 01:56:00 02:55:00 WAJANETTELI ity [facility] 2022-10-13 2022-10-13 [facility] 1.2.999.919 [id number] 83223 Univers 01:56:00 02:55:00 Nvcesar GUERRERO 350.1.13.10 ity of [place] 4.2.7.2.686 [place] 697.2670315 [place] [address] 2022-10-09 2022-10-09 Emergency X [facility] ERT [id number] Univers 18:46:00 19:00:00 LUIZA ity [facility] 2022-10-09 2022-10-09 Emergency [facility] 1.2.758.817 2486 82054 Univers 18:46:00 19:00:00 Luiza S PATSYJUAREZ 350.1.13.10 i ty of [place] 4.2.7.2.686 [place] 108.2685505 [facility] [address] 2022-10-09 2022-10-09 Orders Doctor NAVARRO 1.2.840.114 [id number] Univers 00:00:00 00:00:00 Only Unassigned, ALEM 350.1.13.10 ity of [place] [facility] 4.2.7.2.686 Zay as 139.8154275 [facility] [address] 2022-10-06 2022-10-06 [facility] 1.2.840.1 [id number] [id number] Methodi 17:35:51 23:59:00 Encounter Jorge Luis 72277.1.1 997 s t 3.430.2.7 Hospit a .3.767885 l .8 2022-10-06 2022-10-06 [facility], 1.2.840.1 [id number] [id number] Methodi 17:35:51 23:59:00 Encounter Jorge Luis 70241.1.1 997 s t 3.430.2.7 Hospit a .3.239004 l .8 2022-10-06 2022-10-06 [facility], 1.2.840.1 [id number] Methodi 17:35:36 23:59:00 Encounter Jorge Luis 30185.1.1 999 s t 3.430.2.7 Hospit a .3.877124 l .8 2022-10-06 2022-10-06 [facility], 1.2.840.1 [id number] Methodi 17:35:36 23:59:00 Encounter Jorge Luis 34987.1.1 999 s t 3.430.2.7 Hospit a .3.540948 l .8 2022-10-06 2022-10-06 Travel 1.2.840.1 1.2.742.041 8555 [id number] Methodi 00:00:00 00:00:[address] 3.430.2.7 0.2.7.3.698 Ho spita .3.278725 084.8 l .8 2022-10-06 2022-10-06 Travel 1.2.840.1 1.2.199.424 7944 213447 Methodi 00:00:00 00:00:[address] 3.430.2.7 0.2.7.3.698 Ho spita .3.836860 084.8 l .8 2022-09-09 2022-09-09 Emergency X KEATING, [facility] ERT [id number] Univers 18:15:00 19:35:00 NATY calixto [facility] 2022-09-092022-09-09 Emergency Keating, [facility] 1.2.840.114 [id number] [id number] Univers 18:15:00 19:35:00 Naty GUERRERO 350.1.13.10 i ty of [facility] 4.2.7.2.686 [facility] [id number] [place] [address] 2022-08-18 2022-08-18 Emergency X [facility] ERT [id number] Univers 16:38:00 17:44:00 BEBO rajmisty [facility] 2022-08-18 2022-08-18 [facility] 1.2.360.849 [id number] Univers 16:38:00 17:44:00 Bebo GUERRERO 350.1.13.10 i ty [facility] 4.2.7.2.686 [facility] [id number] [facility] 084 Branch 2022-08-07 2022-08-08 Inpatient EL Nayeli, [facility].01 [id number] [facility] 14:50:00 12:01:00 [facility] 2022-08-03 Emergency EM Omartin, [facility] AERS [id number] [facility] 14:26:00 16:02:00 Roro 86 [facility] 2022-07-23 2022-07-23 [facility], 1.2.840.1 [id number] Methodi 10:30:00 10:30:00 Encounter Jorge Luis 60468.1.1 209 s t 3.430.2.7 Hospit a .3.412294 l .8 2022-07-23 2022-07-23 Telephone Jemal, 1.2.840.1 [id number] 2100 [id number] Methodi 00:00:00 00:00:[address] 3.430.2.7 Hospit a .3.125958 l .8 2022-07-07 2022-07-07 Outpatient LONA DILL [id number] Lona 10:45:00 10:45:00 ELBERT soriano 2022-07-06 2022-07-06 Travel 1.2.840.1 1.2.528.625 6807 [id number] Methodi 00:00:00 00:00:[address] 3.430.2.7 0.2.7.3.698 Ho spita .3.088806 084.8 l .8 2022-06-15 2022-06-16 [facility], 1.2.840.1 [id number] 2099 [id number] Methodi 14:15:00 11:08:59 Visit Jorge Luis [address]6537.1.[address] 3.430.2.7 Hospit a .3.113184 l .8 2022-06-15 2022-06-15 [facility], 1.2.840.1 [id number] 098 [id number] Methodi 14:15:15 23:59:00 Encounter Jorge Luis 92268.1.1 971 s t 3.430.2.7 Hospit a .3.528847 l .8 2022-06-15 2022-06-15 [facility], 1.2.840.1 [id number] 022 [id number] Methodi 14:15:13 23:59:00 Encounter Jorge Luis 91718.1.1 963 s t 3.430.2.7 Hospit a .3.987387 l .8 2022-06-15 2022-06-15 [facility], 1.2.840.1 [id number] 218 [id number] Methodi 14:13:36 14:14:00 Encounter Jorge Luis 54975.1.1 680 s t 3.430.2.7 Hospit a .3.896385 l .8 2022-06-15 2022-06-15 [facility], 1.2.840.1 [id number] 888 [id number] Methodi 14:12:01 14:12:01 Encounter Jorge Luis 02321.1.1 418 s t 3.430.2.7 Hospit a .3.326374 l .8 2022-06-15 2022-06-15 [facility], 1.2.840.1 [id number] 2099 [id number] Methodi 00:00:00 00:00:00 Only Jorge Luis 60527.1.[address] 3.430.2.7 Hospit a .3.800158 l .8 2022-06-15 2022-06-15 Travel 1.2.840.1 1.2.611.441 9793 229454 Methodi 00:00:00 00:00:[address] 3.430.2.7 0.2.7.3.698 Ho spita .3.695077 084.8 l .8 2022-06-11 2022-06-11 Travel 1.2.840.1 1.2.458.302 3572 514244 Methodi 00:00:00 00:00:[address] 3.430.2.7 0.2.7.3.698 Ho spita .3.836123 084.8 l .8 2022-02-17 2022-02-17 Refill Vivian, 1.2.840.1 [id number] 2100 [id number] Methodi 00:00:00 00:00:[address] Andrea 3.430.2.7 Hospit a .3.014036 l .8 2022-01-20 2022-01-20 Office Vivian 1.2.840.1 [id number] 2099 [id number] Methodi 13:00:00 13:57:49 Visit [place] [address]21.1.[address] Andrea 3.430.2.7 Hospit a .3.279192 l .8 2022-01-20 2022-01-20 Telephone GEORGIE Kelley 1.2.840.114 9 [id number] Univers 00:00:00 00:00:00 Michi MIJARESPEC 350.1.13.10 itLandon 4.2.7.2.686 [facility] [phone] [facility] AND [address] DIABETES CLINIC 2022-01-20 2022-01-20 Travel 1.2.840.1 1.2.874.609 3716 [id number] Methodi 00:00:00 00:00:[address] 3.430.2.7 0.2.7.3.698 Ho spita .3.691260 084.8 l .8 2022-01-19 2022-01-19 Telephone [facility] 1.2.840.114 [id number] Univers 00:00:00 00:00:00 [place] MULTISPEC 350.1.13.10 ity of Andrea BRICENO 4.2.7.2.686 [facility] [id number] [facility] AND [place] [address] DIABETES CLINIC 2021-11-21 2021-11-21 Orders Doctor NAVARRO 1.2.840.114 [id number] Univers 00:00:00 00:00:00 Only Unassigned, ALEM 350.1.13.10 ity of [facility] 4.2.7.2.686 Zay [id number] [facility] [address] 2021-11-17 2021-11-18 Emergency X [facility] ERT [id number] Univers 19:45:00 00:44:00 DONTA ity [facility] 2021-11-17 2021-11-18 Emergency [facility] 1.2.058.363 [id number] 8574 Univers 19:45:00 00:44:00 Donta GUERRERO 350.1.13.10 i ty [facility] 4.2.7.2.686 [facility] [id number] [facility] [address] 2021-11-16 2021-11-16 Emergency X [facility] ERT [id number] Univers 20:28:00 21:58:00 IZA ity [facility] 2021-11-16 2021-11-16 Emergency [facility] 1.2.421.078 [id number] 5340 Univers 20:28:00 21:58:00 Iza GUERRERO 350.1.13.10 ity [facility] 4.2.7.2.686 [facility] [id number] [facility] [address] 2021-10-02 2021-10-02 Emergency EM Nwjacey, HCACL MALISSA [id number] [facility] 16:59:00 20:32:00 Hung 153724 Cl [facility] 2021-10-02 2021-10-02 Emergency EM EDDOC, HCACL HCACL [id number] [facility] 16:59:00 20:32:00 GENERIC 76 [facility] 2021-10-01 2021-10-01 Refill Vivian, 1.2.840.1 [id number] [id number] Methodi 00:00:00 00:00:[address] Andrea 3.430.2.7 Hospit a .3.438263 l .8 2021-09-30 2021-09-30 Emergency X [facility] ERT [id number] Univers 13:31:00 16:34:00 AWILDA calixto [facility] 2021-09-30 2021-09-30 Emergency [facility] 1.2.840.114 90 [id number] Univers 13:31:00 16:34:00 Awilda GUERRERO 350.1.13.10 [facility] 4.2.7.2.686 [facility] [id number] [place] [address] Branch 2021-08-14 2021-08-14 Refill Nenita, 1.2.840.1 [id number] 21 [id number] Methodi 00:00:00 00:00:[address] 3.430.2.7 Hospit a .3.964687 l .8 2021-08-12 2021-08-12 Refill Nenita, 1.2.840.1 [id number] 21 [id number] Methodi 00:00:00 00:00:[address] 3.430.2.7 Hospit a .3.671638 l .8 2021-07-23 2021-07-23 Emergency X [facility] ERT [id number] 08 Univers 16:14:00 17:06:00 [facility] 2021-07-23 2021-07-23 Emergency [facility] 1.2.329.[address] [facility] [place] 16:14:00 17:06:00 TROY 350.1.13.10 i ty [facility] 4.2.7.2.686 [facility] [id number] [facility] [address] 2021-07-23 2021-07-23 Emergency EM Sanket, ITALIACL AERS [id number] [facility] 13:58:00 14:24:00 Burak [id number] [facility] 2021-07-23 2021-07-23 Emergency EM ITALIA ColesCL [facility] [id number] [facility] 13:58:00 14:24:00 Burak 69 [facility] 2021-07-10 2021-07-10 Telemedici Vivian, 1.2.840.1 [id number] 2 [id number] Methodi 08:30:00 09:02:51 ne Jessi 98965.1.[address] [facility] 3.430.2.7 Hospit a .3.422396 l .8 2021-07-09 2021-07-09 Travel 1.2.840.1 1.2.188.177 9833 [id number] Methodi 00:00:00 00:00:[address] 3.430.2.7 0.2.7.3.698 Ho spita .3.493604 084.8 l .8 2021-06-13 2021-06-13 [facility]patient [facility] 11340 [id number] Dora 00:00:00 00:00:[address] 2021-04-17 2021-04-17 Emergency E LOLITA WASSERMAN [facility] MED 7515 MH 16:40:00 19:42:00 [facility] 2021-03-30 2021-03-30 Emergency E SATURNINO [facility] 7514 MHBL 00:46:00 06:26:00 KURT 2021-01-15 2021-01-15 Outpatient SALENA Escobar [facility] G81 6242-20 [facility] 08:00:00 08:00:00 Rik [id number] [facility] 2021-01-09 2021-01-09 Emergency E LOLITA WASSERMAN [facility] 7513 12:29:00 16:41:00 [facility] piyush [facility] 2020-12-26 2020-12-26 Emergency [facility] 064 [id number] 09 Dora 00:00:00 00:00:[address] 2020-12-21 2020-12-22 Emergency [facility] 1.2.968.[address] [facility] 22:42:00 02:02:00 Iza Guerrero 350.1.13.10 ity of [place] 4.2.7.2.686 [facility] [id number] [place] 681574 [place] 2020-12-21 2020-12-22 Emergency [facility] 1.2.978.604 4818 7932 22:42:00 02:02:00 Iza Guerrero 350.1.13.10 [place] 4.2.7.2.686 [place] [id number] [facility] 2020-12-21 2020-12-21 Orders Doctor HALEY 1.2.840.114 [id number] 30 Univers 00:00:00 00:00:00 Only Unassigned, ALEM 350.1.13.10 ity of [place] [facility] 4.2.7.2.686 Zay [id number] [facility] [address] 2020-12-21 2020-12-21 Orders Doctor HALEY 1.2.840.114 [id number] 30 00:00:00 00:00:00 Only Unassigned, ALEM 350.1.13.10 [place] [facility] 4.2.7.2.686 [id number] 009 2020-08-15 2020-08-19 Inpatient [facility] [id number] [facility] 14:57:00 06:49:15 39 [facility] 2020-08-15 2020-08-15 Emergency [facility] 1.2.330.[address] [facility] [place] 03:26:00 06:17:00 Donta Guerrero 350.1.13.10 i ty of [place] 4.2.7.2.686 [facility] [id number] [place] 681574 Branch 2020-08-15 2020-08-15 Emergency [facility] ERT [id number] Univers 03:26:00 06:17:00 DONTA durga of [facility] 2020-08-15 2020-08-15 Emergency [facility] 1.2.990.794 [id number] 8387 03:26:00 06:17:00 Donta Guerrero 350.1.13.10 [place] 4.2.7.2.686 [place] [id number] [facility] 2020-04-13 2020-04-13 [facility] 1.2.840.[id number] [facility] [place] 19:38:00 23:40:00 Awilda Guerrero 350.1.13.10 ity of [place] 4.2.7.2.686 [facility] [id number] [address] 2020-04-13 2020-04-13 [facility]ly [facility] 1.2.840.114 [id number] 19:38:00 23:40:00 Awilda Guerrero 350.1.13.10 [place] 4.2.7.2.686 [place] [id number] [facility] 2020-04-13 2020-04-13 Orders Doctor NAVARRO 1.2.840.[id number] [facility] [place] 00:00:00 00:00:00 Only Unassigned, ALEM 350.1.13.10 ity of [place] [facility] 4.2.7.2.686 Zay [id number] [address] 2020-04-13 2020-04-13 Orders Doctor NAVARRO 1.2.840.114 [id number] 77 00:00:00 00:00:00 Only Unassigned, ALEM 350.1.13.10 [place] [facility] 4.2.7.2.686 [id number] 009 2020-04-10 2020-04-10 Emergency [facility] 1.2.467.735 9577 5068 Univers 15:39:00 19:05:00 Bebo Guerrero 350.1.13.10 i ty of [place] 4.2.7.2.686 [facility] [id number] [address] 2020-04-10 2020-04-10 Emergency [facility] 1.2.917.276 4849 5068 15:39:00 19:05:00 Bebo Guerrero 350.1.13.10 [place] 4.2.7.2.686 [place] [id number] 084 2020-04-10 2020-04-10 Orders Doctor NAVARRO 1.2.840.114 [id number] 10 Univers 00:00:00 00:00:00 Only Unassigned, ALEM 350.1.13.10 ity of [place] [facility] 4.2.7.2.686 Zay as [id number] [facility] shanice [address] 2020-04-10 2020-04-10 Orders Doctor NAVARRO 1.2.840.114 [id number] 10 00:00:00 00:00:00 Only Unassigned, ALEM 350.1.13.10 [place] [facility] 4.2.7.2.686 [id number] 009 2020-03-11 2020-03-[address] [facility] Obstetric[facility] 677 17053 [place] 10:00:00 10:00:00 t; Gayatri HUSAIN and Quynh FOSTER, Gynecology rubén HUSAIN M.D. [facility] 2020-02-28 2020-02-28 [facility] [id number] 86 [place] 08:30:00 08:30:00 t; Gayatri HUSAIN ans ASHA, M.D. 2020-02-23 2020-02-23 [facility] [id number] 74 [place] 11:00:00 11:00:00 t; Gayatri HUSAIN ans ASHA, M.D. 2020-02-16 2020-02-[address] [facility] Obstetrics 673 [id number] [place] 14:15:00 14:15:00 t; Yue ROCHA i, M.D. Gynecology Dinah Crawford M.D. Clinic 2020-02-15 2020-02-15 Emergency E AMELIE, MHSE MHSE 7510 20:06:00 21:19:00 [facility] 2020-02-14 2020-02-[address] [facility] Obstetrics 6679 2985 [place] 09:00:00 09:00:00 t; SAMIR MATAMOROS and Phy sici BETHANY, M.D. Gynecology rubén Mendieta [facility] 2020-01-31 2020-01-31 Appointmen MARIBEL AGRAWAL Obstetrics 662 27458 [place] 08:30:00 08:30:00 t; Yue WATKINS i, D.O. Gynecology ans JUNE [facility] 2019-12-20 2019-12-20 AppointMARIBEL Pimentel Orthopedics 65 [id number] [place] 09:30:00 09:30:00 t; JOSE ROBERTO [facility] Quynh GOSS M.D. Sports Jewel Lazo M.D. [facility] 2019-12-20 2019-12-20 Outpatient Raju_P MMG G 93869-1 020 [place] 04:51:00 04:51:00 04[facility] 2019-12-18 2019-12-18 Emergency E TABBY, MHSE MHSE 7500 MH 20:54:00 21:40:00 DEBBIE [facility] a [facility] 2019-10-11 2019-10-12 Emergency X [facility] ERT [id number] Univers 21:52:36 00:17:00 DONTA calixto of [facility] 2019-10-11 2019-10-12 Emergency [facility] 1.2.025.447 7199 3555 Univers 21:52:36 00:17:00 Donta Guerrero 350.1.13.10 i ty of [place] 4.2.7.2.686 [facility] [id number] [facility] [address] 2019-10-11 2019-10-12 Emergency [facility] 1.2.629.688 3067 3555 21:52:36 00:17:00 Donta Guerrero 350.1.13.10 [place] 4.2.7.2.686 [place] [id number] 08 2019-10-11 2019-10-11 Orders Doctor HALEY 1.2.840.114 [id number] Univers 00:00:00 00:00:00 Only Unassigned, ALEM 350.1.13.10 ity of [place] [facility] 4.2.7.2.686 [facility] [id number] [address] 2019-10-11 2019-10-11 Orders Doctor NAVARRO 1.2.840.114 [id number] 54 00:00:00 00:00:00 Only Unassigned, ALEM 350.1.13.10 [place] [facility] 4.2.7.2.686 [id number] 009 2019-06-28 2019-06-28 Appointmen MARIBEL GRUBBS Obstetrics 580 03929 [place] 16:00:00 16:00:00 t; Jackie CAVANAUGH. and Ph ysici HUMERA, Gynecology Dinah Medina M.D. [facility] 2019-05-12 2019-05-12 Nurse Visit, [facility] Nurse [facility] 1.2 .840.[id number] [facility] [place] 10:44:42 12:05:57 Visit Perri Pérez [employer] 350.1.13.10 ity of [facility] 4.2.7.2.686 Zay as MATERNAL [id number] Med ical & CHILD [address] [place] [address] 2019-05-12 2019-05-12 Nurse Visit, [facility] 1.2.840.114 [id number] 60 10:44:42 12:05:57 [facility] [employer] 350.1.13.10 Nurse [facility] 4.2.7.2.686 MATERNAL [id number] & CHILD [address] [place] [address] 2019-05-10 2019-05-10 Telephone [facility] 1.2.840.[id number] [facility] [place] 00:00:00 00:00:00 Perri Olivier [employer] 350.1.13.10 it y of [facility] 4.2.7.2.686 Zay as MATERNAL [id number] Med ical & CHILD [address] [place] [address] 2019-05-10 2019-05-10 Telephone [facility] 1.2.840.114 [id number] 00:00:00 00:00:00 Perri Olivier [employer] 350.1.13.10 REGIONAL 4.2.7.2.686 MATERNAL [id number] & CHILD [address] [place] [address] 2019-04-03 2019-04-03 Patient ROBIN Mcfadden 1.2.840.[address] [facility] [place] 00:00:00 00:00:00 Secure Msg Ivet Y HEALTH 350.1.13.10 ity of [place].2.[place] [id number] [facility] [address] 2019-04-03 2019-04-03 Patient ROBIN Mcfadden 1.2.840.114 705 03115 00:00:00 00:00:00 Secure Msg Ivet Y HEALTH 350.1.13.10 CLINICS 4.2.7.2.686 [id number] 113 2019-03-07 2019-03-07 Patient Doctor NAVARRO 1.2.840.114 [id number] 20 Univers 00:00:00 00:00:00 Secure Msg Unassigned, ALEM 350.1.13.10 ity of [place] [facility] 4.2.7.2.686 Zay as [id number] [address] 2019-03-07 2019-03-07 Patient Doctor NAVARRO 1.2.840.114 [id number] 20 00:00:00 00:00:00 Secure Msg Unassigned, ALEM 350.1.13.10 [place] [facility] 4.2.7.2.686 [id number] 044 2019-02-27 2019-02-27 Patient Doctor NAVARRO 1.2.840.114 [id number] Univers 00:00:00 00:00:00 Secure Msg Unassigned, ALEM 350.1.13.10 ity of [place] [facility] 4.2.7.2.686 Zay as [id number] [address] 2019-02-27 2019-02-27 Patient Doctor NAVARRO 1.2.840.114 [id number] 58 00:00:00 00:00:00 Secure Msg Unassigned, ALEM 350.1.13.10 [place] [facility] 4.2.7.2.686 [id number] 044 2018-10-13 2018-10-13 MARIBEL Cui [facility] [id number] 058 [place] 14:30:00 14:30:00 t; Jennifer FINK i, M.D. ans JORDAN, M.D. 2018-09-07 2018-09-21 Outpatient [facility] [id number] 15:00:00 10:19:03 2018-09-07 2018-09-07 MARIBEL Johnson [employer] [id number] [place] 15:00:00 15:00:00 t; BONITA KRISHNA, [...] 34.6 g/dL 31.6-35.1 RDW-SD (test code = 32908-6) 39.3 fL 39.0-49.9 RDW-CV (test code = 788-0) 11.5 % 12.0-15.5 L PLT (test code = 777-3) 426 See_Comment H [Au tomated message] The system which ge nerated this result transmit uche reference range: 166 - 35 8 10*3/?L. The reference range was not used to interpret th is result as normal/abnormal . MPV (test code = 52277-7) 9.3 fL 9.5-12.9 L NRBC/100 WBC (test code = 0.0 See_Comment [ Automated message] The 7113716092) system which ge nerated this result transmit uche reference range: 0.0 - 10 .0 /100 WBCs. The reference r dagoberto was not used to interpr et this result as normal/abnor mal. NRBC x10^3 (test code = See_Comment [Au tomated message] The 2372667950) system which ge nerated this result transmit uche reference range: 10*3/?L. The reference range was not u sed to interpret this result as normal/abnormal . GRAN MAT (NEUT) % (test code 69.0 % = 770-8) IMM GRAN % (test code = 0.40 % 0433496900) LYMPH % (test code = 736-9) 25.4 % MONO % (test code = 5905-5) 4.6 % EOS % (test code = 713-8) 0.2 % BASO % (test code = 706-2) 0.4 % GRAN MAT x10^3(ANC) (test 6.90 10*3/uL 1.88-7.09 code = 2376177055) IMM GRAN x10^3 (test code = 0.04 10*3/uL 0.00-0.06 2046117791) LYMPH x10^3 (test code = 2.54 10*3/uL 1.32-3.29 731-0) MONO x10^3 (test code = 0.46 10*3/uL 0.33-0.92 742-7) EOS x10^3 (test code = 0.03-0.39 L 711-2) BASO x10^3 (test code = 0.04 10*3/uL 0.01-0.07 704-7) Lab Interpretation (test Abnormal code = 28526-4) [id number] 18:05:00 Test Item Value Reference Range Interpretation Comments POCT PREG (test code = 1605) Negative On board controls acceptable with Yes C Line (test code = 3574) POCT PREG LOT # (test code = 3575) [id number] POCT PREG TEST DATE (test 09-08-2024 code = 3576) Lab Interpretation (test code = Normal 68203-7) [facility] [id number] 20:27:33 Test Item Value Reference Range Interpretation Comments TROPONIN I (test code = <=0.034 2874576336) ANGI (test code = ANGI) Reference (Normal) [...] biotin. Lab Interpretation Normal (test code = 27267-5) [facility] [id number] 20:18:51 Test Item Value Reference Range Interpretation Comments NA (test code = 132 mmol/L 135-145 L 4346141421) K (test code = 4.1 mmol/L 3.5-5.0 2616481050) CL (test code = 98 mmol/L 98-108 9302911865) CO2 TOTAL (test code = 26 mmol/L 23-31 1708844649) AGAP (test code = 8 2-16 8720397508) BUN (test code = 12 mg/dL 7-23 9666141351) GLUCOSE (test code = 79 mg/dL 70-110 8275834761) CREATININE (test code = 0.58 mg/dL 0.50-1.04 2318431832) TOTAL BILI (test code = 0.4 mg/dL 0.1-1.8 3556073681) CALCIUM (test code = 9.0 mg/dL 8.6-10.6 1660126050) T PROTEIN (test code = 7.4 g/dL 6.3-8.2 3815014515) ALBUMIN (test code = 4.5 g/dL 3.5-5.0 0639662492) ALK PHOS (test code = 62 U/L 34-122 8378368251) ALTv (test code = 23 U/L 5-35 1742-6) AST(SGOT) (test code = 31 U/L 13-40 8686036779) eGFR (test code = 122.1 mL/min/1.73m2 2282313018) ANGI (test code = ANGI) Association of [...] tests). Lab Interpretation Abnormal (test code = 00657-8) [facility], [id number] 20:18:51 Test Item Value Reference Range Interpretation Comments LIPASE (test code = 6594805713) 186 U/L 0-220 Lab Interpretation (test code = Normal 68057-0) [facility] with [id number] 19:39:40 Test Item Value Reference Range Interpretation Comments WBC (test code = 5.62 See_Comment [Automated 3127-2) message] The sy stem which generated this [...] RDW-SD (test code = 44.1 fL 39.0-49.9 15973-7) RDW-CV (test code = 13.2 % 12.0-15.5 788-0) PLT (test code = 277 See_Comment [Automated 777-3) message] The sy stem which generated this result transmitted reference range : 166 - 358 10*3/ ?L. The reference r dagoberto was not used to interpret this result as normal/abnormal . MPV (test code = 8.5 fL 9.5-12.9 L 60764-2) NRBC/100 WBC (test 0.0 See_Comment [Automat ed code = 3405863372) message] The system which generated this result transmitted reference range : 0.0 - 10.0 /100 WBCs. The refer ence range was not u sed to interpret th is result as normal/abnormal . NRBC x10^3 (test code See_Comment [Auto mated = 2222379626) message] The s ystem which generated this result transmitted reference range : 10*3/?L. The reference range was not used to interpret this result as normal/abnormal . GRAN MAT (NEUT) % 46.4 % (test code = 770-8) IMM GRAN % (test code 0.90 % = 8062543448) LYMPH % (test code = 38.6 % 736-9) MONO % (test code = 12.5 % 5905-5) EOS % (test code = 0.7 % 713-8) BASO % (test code = 0.9 % 706-2) GRAN MAT x10^3(ANC) 2.61 10*3/uL 1.88-7.09 (test code = 1277464260) IMM GRAN x10^3 (test 0.05 10*3/uL 0.00-0.06 code = 2086972116) LYMPH x10^3 (test code 2.17 10*3/uL 1.32-3.29 = 731-0) MONO x10^3 (test code 0.70 10*3/uL 0.33-0.92 = 742-7) EOS x10^3 (test code = 0.04 10*3/uL 0.03-0.39 711-2) BASO x10^3 (test code 0.05 10*3/uL 0.01-0.07 = 704-7) Lab Interpretation Abnormal (test code = 13532-5) [facility] [id number] 19:34:00 Test Item Value Reference Range Interpretation Comments POCT PREG (test code = 1605) Negative On board controls acceptable with Yes C Line (test code = 3574) POCT PREG LOT # (test code = 3575) [id number] POCT PREG TEST DATE (test 04/13/2024 code = 3576) Lab Interpretation (test code = Normal 03520-4) [facility]. METABOLIC PANEL (92114)2023-01-15 15:36:17 Test Item Value Reference Range Interpretation Comments NA (test code = 139 mmol/L 135-145 9650056702) K (test code = 4.7 mmol/L 3.5-5.0 8926595566) CL (test code = 103 mmol/L 98-108 2697894351) CO2 TOTAL (test code 28 mmol/L 23-31 = 1657427921) AGAP (test code = 8 2-16 5599850650) BUN (test code = 14 mg/dL 7-23 9682868290) GLUCOSE (test code = 75 mg/dL 70-110 3674570091) CREATININE (test code 0.72 mg/dL 0.50-1.04 = 7426368630) TOTAL BILI (test code 0.4 mg/dL 0.1-1.1 = 7044963334) CALCIUM (test code = 9.4 mg/dL 8.6-10.6 4532177399) T PROTEIN (test code 7.4 g/dL 6.3-8.2 = 0590043727) ALBUMIN (test code = 4.5 g/dL 3.5-5.0 7840654016) ALK PHOS (test code = 58 U/L 34-122 4446228970) ALTv (test code = 22 U/L 5-35 1742-6) AST(SGOT) (test code 24 U/L 13-40 = 4018225201) eGFR (test code = 95.1 mL/min/1.73m2 2509057805) ANGI (test code = ANGI) Association of [...] or abnormalities in imaging tests). [facility] 15:36:17 Test Item Value Reference Range Interpretation Comments LIPASE (test code = 2585001653) 93 U/L 0-220 Lab Interpretation (test code = Normal 32023-8) [facility] WITH [id number] 15:19:14 Test Item Value Reference Range Interpretation [...] RDW-SD (test code = 42.5 fL 39.0-49.9 02821-5) RDW-CV (test code = 12.9 % 12.0-15.5 788-0) PLT (test code = 317 See_Comment [Automated 777-3) message] The sy stem which generated this result transmitted reference range : 166 - 358 10*3/ ?L. The reference r dagoberto was not used to interpret this result as normal/abnormal . MPV (test code = 8.8 fL 9.5-12.9 L 12322-0) NRBC/100 WBC (test 0.0 See_Comment [Automat ed code = 8956789059) message] The system which generated this result transmitted reference range : 0.0 - 10.0 /100 WBCs. The refer ence range was not u sed to interpret th is result as normal/abnormal . NRBC x10^3 (test code See_Comment [Auto mated = 4901315480) message] The s ystem which generated this result transmitted reference range : 10*3/?L. The reference range was not used to interpret this result as normal/abnormal . GRAN MAT (NEUT) % 55.7 % (test code = 770-8) IMM GRAN % (test code 0.30 % = [id number]) LYMPH % (test code = 34.0 % 736-9) MONO % (test code = 8.1 % 5905-5) EOS % (test code = 1.0 % 713-8) BASO % (test code = 0.9 % 706-2) GRAN MAT x10^3(ANC) 4.45 10*3/uL 1.88-7.09 (test code = [id number]) IMM GRAN x10^3 (test 0.00-0.06 code = [id number]) LYMPH x10^3 (test code 2.72 10*3/uL 1.32-3.29 = 731-0) MONO x10^3 (test code 0.65 10*3/uL 0.33-0.92 = 742-7) EOS x10^3 (test code = 0.08 10*3/uL 0.03-0.39 711-2) BASO x10^3 (test code 0.07 10*3/uL 0.01-0.07 = 704-7) Lab Interpretation Abnormal (test code = 22511-6) [id number] Test Item Value Reference Range Interpretation Comments POCT Creatinine (test code = 0.7 mg/dL 0.5-1.4 [id number]) Lab Interpretation (test code = Normal 39100-6) [facility] [id number] 17:16:01 Test Item Value Reference Range Interpretation Comments TSH (test code = 3.96 See_Comment [Automated message] [id number]) The system [employer] generated this result transmitted ref erence range: 0.45 - 4 .70 mIU/L. The refe rence range was not u sed to interpret this result as normal/abnor mal. Lab Interpretation (test Normal code = 94657-8) [id number] 11:33:33 Test Item Value Reference Interpretation Comments Range D-DIMER (test code = See_Comment [Autom ated [id number]) message] The system which generated this result [...] diagnosis. Lab Interpretation Normal (test code = 25002-3) [facility] [id number] 10:57:27 Test Item Value Reference Range Interpretation Comments TROPONIN I (test code = 0.012 ng/mL <=0.034 [id number]) ANGI (test code = ANGI) Reference (Normal) [...] biotin. Lab Interpretation Normal (test code = 38418-8) [facility] [id number] 09:04:18 Test Item Value Reference Range Interpretation Comments TROPONIN I (test code = 0.010 ng/mL <=0.034 [id number]) ANGI (test code = ANGI) Reference (Normal) [...] biotin. Lab Interpretation Normal (test code = 30682-8) [facility] WITH [id number] 09:03:38 Test Item Value Reference Range Interpretation Comments WBC (test code = 10.76 See_Comment [Automated 3786-2) message] The sy stem which generated this result transmitted reference range : 4.30 - 11.10 10*3/?L. The reference range was not used to interpret this result as normal/abnormal . RBC (test code = 4.19 See_Comment [Automated 019-8) message] The sy stem which generated this [...] (test code = 36.7 fL 39.0-49.9 L 75312-2) RDW-CV (test code = 11.6 % 12.0-15.5 L 788-0) PLT (test code = 317 See_Comment [Automated 027-3) message] The sy stem which generated this result transmitted reference range : 166 - 358 10*3/ ?L. The reference r dagoberto was not used to interpret this result as normal/abnormal . MPV (test code = 8.8 fL 9.5-12.9 L 11277-9) NRBC/100 WBC (test 0.0 See_Comment [Automat ed code = 0601083611) message] The system which generated this result transmitted reference range : 0.0 - 10.0 /100 WBCs. The refer ence range was not u sed to interpret th is result as normal/abnormal . NRBC x10^3 (test code See_Comment [Auto mated = 7704291953) message] The s ystem which generated this result transmitted reference range : 10*3/?L. The reference range was not used to interpret this result as normal/abnormal . GRAN MAT (NEUT) % 49.3 % (test code = 770-8) IMM GRAN % (test code 0.50 % = 2848519417) LYMPH % (test code = 42.6 % 736-9) MONO % (test code = 6.3 % 5905-5) EOS % (test code = 0.6 % 713-8) BASO % (test code = 0.7 % 706-2) GRAN MAT x10^3(ANC) 5.32 10*3/uL 1.88-7.09 (test code = 8256430311) IMM GRAN x10^3 (test 0.05 10*3/uL 0.00-0.06 code = 4137740849) LYMPH x10^3 (test code 4.58 10*3/uL 1.32-3.29 H = 731-0) MONO x10^3 (test code 0.68 10*3/uL 0.33-0.92 = 742-7) EOS x10^3 (test code = 0.06 10*3/uL 0.03-0.39 711-2) BASO x10^3 (test code 0.07 10*3/uL 0.01-0.07 = 704-7) Lab Interpretation Abnormal (test code = 01425-7) [facility]. METABOLIC PANEL (16190)2022-12-14 08:52:54 Test Item Value Reference Range Interpretation Comments NA (test code = 137 mmol/L 135-145 3309951938) K (test code = 3.9 mmol/L 3.5-5.0 5880674762) CL (test code = 103 mmol/L 98-108 9625898521) CO2 TOTAL (test code 25 mmol/L 23-31 = 4084064306) AGAP (test code = 9 2-16 5268086400) BUN (test code = 14 mg/dL 7-23 3069503423) GLUCOSE (test code = 88 mg/dL 70-110 1675322922) CREATININE (test code 0.69 mg/dL 0.50-1.04 = 2619004919) TOTAL BILI (test code 0.4 mg/dL 0.1-1.1 = 4936935176) CALCIUM (test code = 9.5 mg/dL 8.6-10.6 1723306351) T PROTEIN (test code 7.8 g/dL 6.3-8.2 = 1960678292) ALBUMIN (test code = 4.9 g/dL 3.5-5.0 3822205349) ALK PHOS (test code = 59 U/L 34-122 5983164336) ALTv (test code = 19 U/L 5-35 1742-6) AST(SGOT) (test code 23 U/L 13-40 = 0138448205) eGFR (test code = 99.9 mL/min/1.73m2 7951777648) ANGI (test code = ANGI) Association of [...] or abnormalities in imaging tests). [facility] Test Item Value Reference Range Interpretation Comments LIPASE (test code = 5420569753) 70 U/L 0-220 Lab Interpretation (test code = Normal 58596-2) [facility]-NIHJE2378-00-25 15:45:47 Test Item Value Reference Interpretation Comments Range D-DIMER (test code = See_Comment [Autom ated 3884904071) message] The system which generated this result [...] diagnosis. Lab Interpretation Normal (test code = 23583-5) [facility] TEST, [id number] 15:07:51 Test Item Value Reference Range Interpretation Comments PREG SERUM (test code Negative = 2050546645) ANGI (test code = ANGI) Less than 10 IU/L. ?If low titer or ectopic is suspected, resubmit specimen in 48-72 hours. [facility] METABOLIC PANEL (61675)2022-11-03 15:05:35 Test Item Value Reference Range Interpretation Comments NA (test code = 138 mmol/L 135-145 4808787683) K (test code = 4.4 mmol/L 3.5-5.0 2657876271) CL (test code = 104 mmol/L 98-108 0660357297) CO2 TOTAL (test code = 25 mmol/L 23-31 1208999968) AGAP (test code = 9 2-16 7578659358) BUN (test code = 8 mg/dL 7-23 9036869552) GLUCOSE (test code = 100 mg/dL 70-110 0845736608) CREATININE (test code = 0.68 mg/dL 0.50-1.04 3740477601) TOTAL BILI (test code = 0.6 mg/dL 0.1-1.0 4043340127) CALCIUM (test code = 9.3 mg/dL 8.6-10.6 2184408296) T PROTEIN (test code = 8.2 g/dL 6.3-8.2 2689507953) ALBUMIN (test code = 5.1 g/dL 3.5-5.0 H 4158098799) ALK PHOS (test code = 57 U/L 34-122 7792077852) ALTv (test code = 21 U/L 5-35 1742-6) AST(SGOT) (test code = 29 U/L 13-40 8842815946) eGFR (test code = 101.6 mL/min/1.73m2 9934662190) ANGI (test code = ANGI) Association of [...] tests). Lab Interpretation Abnormal (test code = 87562-7) [facility] WITH [id number] 14:50:54 Test Item Value Reference Range Interpretation Comments WBC (test code = 8.23 See_Comment [Automated 5190-2) message] The sy stem which generated this result transmitted reference range : 4.30 - 11.10 10*3/?L. The reference range was not used to interpret this result as normal/abnormal . RBC (test code = 4.47 See_Comment [Automated 299-8) message] The sy stem which generated this [...] (test code = 36.4 fL 39.0-49.9 L 52097-1) RDW-CV (test code = 11.2 % 12.0-15.5 L 788-0) PLT (test code = 384 See_Comment H [Automated 777-3) message] The sy stem which generated this result transmitted reference range : 166 - 358 10*3/ ?L. The reference r dagoberto was not used to interpret this result as normal/abnormal . MPV (test code = 8.4 fL 9.5-12.9 L 48989-3) NRBC/100 WBC (test 0.0 See_Comment [Automat ed code = 2499269531) message] The system which generated this result transmitted reference range : 0.0 - 10.0 /100 WBCs. The refer ence range was not u sed to interpret th is result as normal/abnormal . NRBC x10^3 (test code See_Comment [Auto mated = 7692149100) message] The s ystem which generated this result transmitted reference range : 10*3/?L. The reference range was not used to interpret this result as normal/abnormal . GRAN MAT (NEUT) % 47.0 % (test code = 770-8) IMM GRAN % (test code 0.20 % = 7066148483) LYMPH % (test code = 44.0 % 736-9) MONO % (test code = 6.6 % 5905-5) EOS % (test code = 1.1 % 713-8) BASO %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 Respiratory/Chest No respiratory distressCardiovascular Cardiovascular Regular rhythm, Cap refill not delayed, Peripheral circulationNL Heart Rate/Rhythm Tachycardia (mild, rate in low 90s). Abdomen/GI Abdomen/GI Soft, No distentionMS Back Back No CVA tendernessSkin Skin Warm, Dry, IntactNeurologic Neurologic Oriented X3, Speech NL, No motor deficits, No sensory deficits Interpretation Diagnostics Lab Results InterpretationResultsLaboratory Tests 12/27/202058:[Embedded Image Not Available]Laboratory Tests: 12/27 2058 Chemistry Sodium (136 - [...] % (Auto) (20.5 - 51.1 %) 26.0 Beauregard % (Auto) (1.7 - 9.3 %) 4.6 Eos % (Auto) (0.0 - 7.0 %) 0.5 Baso % (Auto) (0 - 2.5 %) 0.5 Neut # (Auto) (1.80 - 7.70 x10 3/uL) 6.66 Lymph # (Auto) (1.00 - 4.80 x10 3/uL) 2.54 Beauregard # (Auto) (0.00 - 0.80 x10 3/uL) 0.45 Eos # (Auto) (0.00 - 0.45 x10 3/uL) 0.05 Baso # (Auto) (0.0 - 0.20 x10 3/uL) 0.05 Lab StatementLaboratory studies reviewed and considered in the medical decision-making. Point of Care TestingPulse Oximetry Pulse Ox % 100 On: Room air Interpretation Interpreted by me, Pulse oximetry normal Time 2037 Re-Evaluation MDM Free Text MDM NotesFree Text MDM NotesPatient afebrile and nontoxic appearing. Noted to be mildly tachy with heart rate in th elow 90s but normotensive. Patient with reports of upper abdominal pain but appears in no acute distress in room. Paitent's symptoms seem to be most c/w gastritis. I spoke with Dr. Escobar who reported that her EGD yesterday had findings c/w gastritis and did show some old dried blood but no active bleeding. Notes that he did perform a biopsy to assess for h. pylori, which is likely the etiology of patient reported mild hematemesis and blood in stools. Hgb checked, found to be normal at 14.0 and patient with no signs of dizziness, weakness, light-headedness, sob. Remainder of labs including lipase and LFTs wnl. Patient reports she had a recent CT scan of her abdomen done at [facility] that was reportedly unremarkable. Based on history and exam I do not suspect an acute infection or obstruction and do not think a repeat CT scan is indicated at this time.After length discussion with patient we agreed on plan for dose of IM pain medication in the ED for temporary comfort and discharge home with recs to continue her GI medication regimen which includes a PPI and also nausea medications (zofran and phenergan) and prescription for tylenol with codeine. Given recs to f/u with Dr. Moura's office for H. Pylori results. Also given strict return precautions to the ED. ED CourseMedication(s) OrderedMedication(s) Ordered:Central Nervous System Agents Sig/Arina Start time Last Medication Dose Route Stop Time Status Admin Morphine Sulfate 4 MG X1ED STA 12/27 2140 DC 12/27 IM 12/27 Morphine Sulfate 6 MG X1ED STA 12/28 2135 CAN IM 12/27 2136 Gastrointestinal Drugs Sig/Arina Start time Last Medication Dose Route Stop Time Status Admin Pantoprazole 80 MG X1ED STA 12/27 2037 CAN Sodium Chloride 10 ML IV 12/28 636 Pantoprazole 80 MG X1ED STA 12/27 2037 CAN Sodium Chloride 100 ML IV 12/28 0637 Patient Discharge Departure Vital Signs/ConditionVital SignsFirst Documented: Result Date Time Pulse Ox 100 [...] signs available at the time of this entry have been reviewed. Clinical ImpressionClinical ImpressionPrimary Impression: Acute gastritis Disposition DecisionDischarge )( Discharged to Home Yes )( Time 2223 )( Date 12/27/20 Discharge/Care PlanCounseled Regarding Diagnosis, Lab results, Need for follow-up, When to return to [facility] Drug Database Reviewed Yes, OD risk score 480, patient with numerous prior rx's for tylenol with codeine and norco; reports they were for prior surgeries andchronic pain related to her arthritis; moderate abuse risk potential.Patient Instructions ED Gastritis (Adult), ED H Pylori Infection with Peptic ..., Helicobacter Pylori CultureReferrals RETURN TO THE ER: As NeededFor any worse or severe symptoms. Rik Escobar MD: 2-3 Days at 2322RPT #:[id number] OF REPORTEDEmergency department [id number]:15:[id number] for patient [id number]:22:20 2020-12-26 [id number]:38:000 [facility] 11:38:00 [phone] [facility] [address] [place] [address] PATIENT NAME: LONA MARIE ADMIT DATE: 12/26/20ACCOUNT NO: [id number] ROOM NO: AGE: 30 REPORT TYPE: ENDOSCOPY REPORT SEX: F ADMITTING PHYSICIAN: ATTENDING PHYSICIAN:Rik Escobar MD [facility] Patient Name: Cynthia Zamorano Attending MD: Rik Escobar MDProcedure Date: 12/26/2020 11:38 AM Number: [id number] Date of : 1990Admit Type: Preadmit Age: 30Room: Room 1 Gender: FemaleNote Status: Finalized _ Procedure: Upper GI endoscopyPre Procedure Diagnosis: Epigastric abdominal painAssistants: Rik Escobar MD, Crystal Auguste (Nurse), Young Raygoza, Customer Support Agent, Castillo WILKINS MD: Rik Escobar MDAnesthesia: Monitored Anesthesia CareProcedure: Pre-Anesthesia Assessment: - Prior to the procedure, a History and Physical was performed, and patient medications and allergies were reviewed. The patient is competent. The risks and benefits of the procedure and the sedation options and risks were discussed with the patient. All questions were answered and informed consent was obtained. Patient identification and proposed procedure were verified by the physician, the nurse, the anesthesiologist, the security compliance specialist and the maintenance technician 2nd shift in the pre-procedure area in the procedure room in the endoscopy suite. Mental Status Examination: normal. Airway Examination: normal oropharyngeal airway and neck mobility. Respiratory Examination: clear to auscultation. CV Examination: normal. ASA Grade Assessment: II - A patient with mild systemic disease. After reviewing the risks and benefits, the patient was deemed in satisfactory condition to undergo the procedure. The anesthesia plan was to use monitored anesthesia care (MAC). Immediately prior to administration of medications, the patient was re-assessed for adequacy to receive sedatives. The heart rate, respiratory rate, oxygen saturations, blood pressure, adequacy of pulmonary ventilation, and response to care were monitored throughout the PATIENT NAME: LONA MARIE procedure. The physical status of the patient was re-assessed after the procedure. The benefits, risks, and alternatives to the procedure were discussed and informed consent was obtained from the patient. I've assesed the patient on this date and reviewed the medical history, drug history, and previous anesthesia experience. After obtaining informed consent, the scope was passed under direct vision. Throughout the procedure, the patient's blood pressure, pulse, and oxygen saturations were monitored continuously.s were monitored continuously. The Endoscope was introduced through the mouth, and advanced to the third part of duodenum. The upper GI endoscopy was accomplished without difficulty. The patient tolerated the procedure well. Post Procedure Findings: The hypopharynx was normal. The upper third of the esophagus, middle third of the esophagus and lower third of the esophagus were normal. The Z-line was variable and was found at the gastroesophageal junction. A small hiatal hernia was present. Moderate inflammation characterized by adherent blood, congestion (edema), erosions, erythema and aphthous ulcerations was found in the entire examined stomach. Biopsies were taken with a cold forceps for histology. Estimated blood loss was minimal. The examined duodenum was normal. Complications: No immediate complications. Estimated blood loss: Minimal.Estimated Blood Loss: Post Procedure Diagnosis: - Normal hypopharynx. - Normal upper third of esophagus, middle third of esophagus and lower third of esophagus. - Z-line variable, at the gastroesophageal junction. - Small hiatal hernia. - Gastritis. Biopsied. - Normal examined duodenum.Recommendation: - Discharge patient to home (via wheelchair). - Resume previous diet. - Continue present medications. - Await pathology results. - Return to my office in 1 week. Rik Escobar MD Rik Escobar MD12/26/2020 12:40:22 PMThis report has been signed electronically.Number of Addenda: 0 Note Initiated On: 12/26/2020 11:38 AM PATIENT NAME: LONA MARIE Procedure Date: 12/26/2020 11:38:36 AMProvation {[id number]}.pdf ProVation FT PDF at 1240 PATIENT NAME: LONA MARIE [id number]:40:[id number] for patient [id number]:41:01 2020-12-22 [id number]:14:00 [facility] 22:14:00 [facility] ([facility])EMERGENCY PROVIDER REPORTREPORT#:[id number] REPORT STATUS: SignedDATE:12/22/20 TIME: 2213 PATIENT: LONA MARIE UNIT #: [id number]#: [id number] ROOM: BED:AGE: 30 SEX: F PCP PHYS: No Primary or Family PhysicianSERVICE AUTHOR: Jayme Rodríguez MD * ALL edits or amendments must be made on the electronic/computer document * HPI-Abd Pain F Under 40 Free Text HPI NotesFree Text HPI [id number] female with a past medical history of psoriatic arthritis presents emergency department for evaluation of nausea and vomiting. Patient states onset of this was several days ago. Patient states symptoms have progressively got worse so he decided to come to the emergency department for further evaluation. Patient states she was recently evaluated in urgent care and discharged home with supportive therapy. Patient states that she was advised ifsymptoms continue to go to the emergency department for further evaluation. Patient states that she went to the different ER yesterday and was advised that she needs to follow-up with her GI doctor. Patient states the pain that symptoms got worse so decided to come here for evaluation. Patient was seen here back in August 2020 for similar symptoms an EGD was done and was advised to follow-up outpatient. Patient denies any fevers, chills or any other associated symptoms at this time. Patient states there was specks of blood inside her throw up. GeneralConfirmed Patient YesPatient Type New patientInitial Greet Date/Time 12/22/202147 PresentationChief Complaint Nausea, Vomiting moderate Risk-Abd Pain F Under 40)( Ectopic Risk factors reviewed Review of Systems ROS StatementsAll systems rev neg except as marked. Basic Review of SystemsBasic ROS EYES: No redness, ENT: No sore throat, HEM: No bleeding/bruising, SKIN: No rash, NEURO: No change MS, NEURO: No focal deficit, PSYCH: NL thought content Focused Review of SystemsConstitutionalDenies: Chills, Fever, Lethargy. RespiratoryDenies: Cough, non-productive, Cough, productive, Shortness of breath. CardiovascularDenies: Chest pain, Syncope. GIReports: Abdominal pain, Nausea, Vomiting. FemaleDenies: Dysuria, Flank pain, Pelvic pain. MusculoskeletalDenies: Back pain, Extremity pain. Past Medical History - AdultStated Complaint LOWER ABD PAIN, VOMITING BLOODAllergiesCoded Allergies:Penicillins (Severe, rash 08/23/20)adhesive tape (Severe, raya 08/23/20)amoxicillin (Severe, rash 08/23/20)doxycycline (Severe, rash 08/23/20)ketorolac (From TORADOL) (Severe, hives 08/23/20)lamotrigine (From LAMICTAL) (Severe, rash, sob, chest pain 08/23/20)latex (Severe, raya 08/23/20)metoclopramide (From REGLAN) (Severe, rash 08/23/20)tramadol (Severe, hives 08/23/20)trazodone (Severe, rash 08/23/20) Home MedicationsActive ScriptsPregabalin (Lyrica) 50 MG PO TID Pregabalin (Lyrica) 50 MG PO TID #90 CAP Prov: 08/25/20Pantoprazole Dr (Protonix) 40 MG PO DAILY Pantoprazole Dr (Protonix) 40 MG PO DAILY #30 TAB Prov: 08/25/20Amitriptyline (Elavil) 50 MG PO BEDTIME Amitriptyline (Elavil) 50 MG PO BEDTIME #30 TAB Prov: 08/25/20Ondansetron Odt (Zofran Odt) 4 MG Q6H Ondansetron Odt (Zofran Odt) 4 MG Q6H #50 TAB Prov: 08/25/20Pregabalin (Lyrica) 50 MG PO TID Pregabalin (Lyrica) 50 MG PO TID #90 CAP Prov: 08/25/20Meclizine (Antivert) 25 MG PO Q8H PRN DIZZINESS Meclizine (Antivert) 25 MG PO Q8H PRN DIZZINESS #50 TAB Prov: 08/25/20 Reported MedicationsHydrocodone/Apap (Hermon 10/325) 1 TAB PO Q4H PRN PAIN SCALE 7-10 Lorazepam (Ativan) Additional Medical HistoryPsoriatic ArthritisPast Surgical History:Reports: Appendectomy, Hysterectomy. Alcohol Use Alcohol useDrug Use Denies recreational drugsSmoking status: Smoking status for patients 13 years old or older: Unknown,if ever smoked Physical Exam Vital SignsVital SignsFirst Documented: Result Date Time Pulse Ox 100 [...] Review of Vital Signs Reviewed Basic Physical ExamBasic PE HEAD: Atraumatic/NC, EYES: PERRL, conj clear, ENT: Membranes moist, NECK: Supple, EXT: No gross abnormality, SKIN: No rashes, warm/dry, NEURO: alert oriented, NEURO: gross movement NL, PSYCH: NL thought content Focused PEGeneral/Const General/Const Awake, Alert, Well appearingMS Head Head NormocephalicEyes Eyes PERRLEars/Nose/Throat Ears/Nose/Throat Airway patent, Mucous membranes moist, Pharynx NLResp/Chest Respiratory/Chest Breath sounds NL, Breath sounds = bilat, No respiratory distress, No rales, No rhonchi, No wheezingCardiovascular Cardiovascular Heart rate NL, Regular rhythm, Heart sounds NL, Peripheral circulation NLAbdomen/GI Abdomen/GI Soft, Non-tender, McBurney's non-tender, No guarding, No rebound, BS normoactive, No distention, No hernia, No palpable massMS Back Back Inspection NL, Non-tender, No CVA tendernessSkin Skin Color NL, Warm, Dry, Turgor NLGenitourinary Female Genitourinary External genitalia NL, No bleeding, No discharge, No cervical motion tend, Os closed, No adnexal mass, No adnexal tenderness, No uterine enlargement, No uterine mass, No lesions or rashRectum Rectum/Perineum Blood - occult heme neg, internal controls specialist passed, No gross blood, No fissures, No hemorrhoids, Sphincter tone NLNeurologic Neurologic Oriented X3, Speech NL, No motor deficits, No sensory deficits Interpretation Diagnostics Lab Results InterpretationResultsLaboratory Tests 12/22/20 2255:[Embedded Image Not Available]Laboratory Tests: 12/22 2258 Chemistry Sodium (136 - [...] % (Auto) (20.5 - 51.1 %) 24.3 Beauregard % (Auto) (1.7 - 9.3 %) 6.4 Eos % (Auto) (0.0 - 7.0 %) 1.2 Baso % (Auto) (0 - 2.5 %) 0.7 Neut # (Auto) (1.80 - 7.70 x10 3/uL) 6.87 Lymph # (Auto) (1.00 - 4.80 x10 3/uL) 2.49 Beauregard # (Auto) (0.00 - 0.80 x10 3/uL) 0.66 Eos # (Auto) (0.00 - 0.45 x10 3/uL) 0.12 Baso # (Auto) (0.0 - 0.20 x10 3/uL) 0.07 Urines Urine Color (YELLOW DISCRIPT) YELLOW Urine Appearance (CLEAR DISCRIPT) CLEAR Urine pH (5.0 - 9.0) 5.5 Ur Specific [place] (1.005 - 1.030) 1.025 Urine Protein (NEGATIVE [...] Squamous Epith Cells (NONE - TRACE /LPF) OCCASIONAL Urine Bacteria (NONE - TRACE /HPF) NONE SEEN Urine HCG, Qual (NEGATIVE) NEGATIVE ECG #1 InterpretationECG Documented in MUSE YesDate 12/22/20Time 3Interpreted by ED physicianNL ECG Interpretation Normal rateRate 81 Re-Evaluation MDM Free Text MDM NotesFree Text MDM NotesOn reevaluation patient is resting comfortably in the room in no acute distress. Patient is not around 1 cm inside the ED. Patient was given a p.o. challenge and passed inside the ED. Patient was advised to be discharged home and needed to follow-up with her GI doctor tomorrow. On discharge pt began to ask for pain meds to go home with. Pt was advised thatbrittaniee had a FOOD AND BEVERAGE OUTLETS MANAGER score of 480 and would need to ask her PCP or Dr. Escobar for further pain medication. Pt was advised I could not prescribe medications out from the ED due to her score. ED CourseMedication(s) OrderedMedication(s) Ordered:Autonomic Drugs Sig/Arina Start time Last Medication Dose Route Stop Time Status Admin Dicyclomine HCl 20 MG X1ED STA 12/22 2199 DC IM 12/22 2200 Central Nervous System Agents Sig/Arina Start time Last Medication Dose Route Stop Time Status Admin Hydrocodone Bitart/ 1 TAB X1ED STA 12/22 2314 DC 12/22 Acetaminophen PO 12/22 2315 2319 Electrolytic, Caloric, And Jair Sig/Arina Start time Last Medication Dose Route Stop Time Status Admin Sodium Chloride 1,000 ML X1ED STA 12/22 2153 DC 12/22 IV 12/22 2252 2307 Gastrointestinal Drugs Sig/Arina Start time Last Medication Dose Route Stop Time Status Admin Ondansetron HCl 4 MG X1ED STA 12/22 2152 DC 12/22 IV 12/22 2154 2307 Patient Discharge Departure Vital Signs/ConditionVital SignsFirst Documented: Result Date Time Pulse Ox 100 [...] signs available at the time of this entry have been reviewed. Clinical ImpressionClinical ImpressionPrimary Impression: Nausea vomitingSecondary Impressions: Abdominal pain Disposition DecisionDischarge )( Discharged to Home Yes )( Time 2355 )( Date 12/22/20 Discharge/Care PlanCounseled Regarding Diagnosis, Lab results, Need for follow-up, When to return to [facility] Database Reviewed Yes, Pt had a score of 480 and will not be discharged home with opioids due to this score.(Auto) PrescriptionsCurrent Visit ScriptsDicyclomine (Bentyl) 20 MG PO QID Dicyclomine (Bentyl) 20 MG PO QID #30 TABS Ondansetron Odt (Zofran Odt) 4 MG PO Q6H PRN PRN NAUSEA/VOMITING Ondansetron Odt (Zofran Odt) 4 MG PO Q6H PRN PRN NAUSEA/VOMITING #15 TABS Patient Instructions Abdominal Pain, ED Diet for Vomiting or Diarrhea AdultReferralsRik Escobar MD Discharge NoteI have spoken with the patient and/or caregivers. I have explained the patient'scondition, diagnoses and treatment plan based on the information available to meat this time. I have answered the patient's and/or caregiver's questions and addressed any concerns. The patient and/or caregivers have as good an understanding of the patient's diagnosis, condition and treatment plan as can beexpected at this point. The vital signs have been stable. The patient's condition is stable and appropriate for discharge from the emergency department. The patient will pursue further outpatient evaluation with the primary care physician or other designated or consulting physician as outlined in the discharge instructions. The patient and/or caregivers are agreeable to this planof care and follow-up instructions have been explained in detail. The patient and/or caregivers have received these instructions in written format and have expressed an understanding of the discharge instructions. The patient and/or caregivers are aware that any significant change in condition or worsening of symptoms should prompt an immediate return to this or the closest emergency department or a call to 911. at 0016RPT #:[id number] OF [facility]PORTBig [facility] department [id number]:14:00P.[id number] for patient gwreAUUGRKAQNQJMAA3877-70-64B63:17:17 2020-12-22 [id number]:03:000 [facility] 22:03:00 [phone] [place] [id number] NAME: LONA MARIE ADMIT DATE: 12/22/20ACCOUNT NO: [id number] ROOM NO: AGE: 30 REPORT TYPE: eELECTROCARDIOGRAM SEX: F ADMITTING PHYSICIAN: ATTENDING PHYSICIAN: Order:[id number] Reason : Test Date/Time Stamp:WedDec 22 2020 22:03:30Blood Pressure : / mmHGVent. Rate : 081 BPM Atrial Rate : 081 BPM P-R Int : 142 ms QRS Dur : 068 ms QT Int : 352 ms P-R-T Axes : 048 074 046 degrees QTc Int : 408 ms Normal sinus rhythmNormal ECGNo previous ECGs availableConfirmed by LIBRADO MAS MD ([id number]) on 12/23/2020 5:40:11 PM Referred By: Jayme Rodríguez Confirmed by:LIBRADO MAS MD at 1740 PATIENT NAME: LONA MARIE .[id number] for patient dfpuEKODQMFDIRKQOE2698-54-72S58:40:35 2020-08-25 [id number]:44:001 [facility] 11:44:00 [phone] [address] PATIENT NAME: LONA MARIE ADMIT DATE: 08/23/20ACCOUNT NO: [id number] ROOM NO: P.0724 AGE: 30 REPORT TYPE: PROGRESS NOTE SEX: F ADMITTING PHYSICIAN:Olegario Srivastava MD ATTENDING PHYSICIAN:Olegario Srivastava MD DATE: 08/25/2020 PAIN MANAGEMENT PROGRESS NOTE CONSULTING PHYSICIAN: Naheed Taylor DO SPECIALITY: Pain management. SUBJECTIVE: Ms. Marie is still reporting abdominal pain. Discussed the casewith Dr. Srivastava. The plan is to have workup further as an outpatient. Shereports that she was able to eat, but she threw it all up. Reporting the painto be sharp, going from the lower abdominal area to the mid and to theepigastric area. Reports that to be constant. It occurs even when she is noteating. She is not reporting any frequency in urination or dysuria. PHYSICAL EXAMINATION:VITAL SIGNS: Blood pressure 98/63, respirations 18, heart rate 69, andtemperature 36.6.GENERAL: Awake and alert, some distress secondary to pain and discomfort.LUNGS: Normal respiratory rate and effort.ABDOMEN: Soft. No rebound or guarding.EXTREMITIES: No clubbing or cyanosis. ASSESSMENT: Ongoing abdominal pain of uncertain etiology. PLAN: I am going to increase the hydrocodone from 5 to 10. Morphine has beendiscontinued. I discussed this with Dr. Srivastava. We will see if she canmaintain p.o. intake and if the hydrocodone at increase strength is better ableto control her pain. Prescription was put in the chart that she wished to bedischarged. Low suspicion for interstitial cystitis, but with ongoing pain, Ithink she needs close followup with gastroenterology and urology. It appearsshe has been seen by CORN POPPER at [facility] to follow up may be warranted also. Dictated By: Naheed Taylor DO WT: PN:KARLIE/RADHA/NTSDD: 08/25/2020 11:44:07DT: 08/25/2020 12:00:11Conf#: [id number]/SOWMYA#: [id number] Authenticated by Naheed Taylor DO On 09/17/2020 11:59:25 AM PATIENT NAME: LONA MARIE at 1159 PATIENT NAME: LONA MARIE Vubx0960-06-04M21:00:00P.[id number] 22AVAvailable for patient lpfpMDKOODUWACEBAK1270-27-07S66:59:56 2020-08-25 [id number]:42:001 [facility] 11:42:00 [phone] [facility] [address] [place] [address] PATIENT NAME: LONA MARIE ADMIT DATE: 08/23/20ACCOUNT NO: [id number] ROOM NO: 07 AGE: 30 REPORT TYPE: CONSULTATION SEX: F ADMITTING PHYSICIAN:Olegario Srivastava MD ATTENDING PHYSICIAN:Olegario Srivastava MD CONSULTATION DATE: 08/24/2020 CONSULTING PHYSICIAN: Naheed Taylor DO CONSULTING PHYSICIAN: Naheed Taylor DO SPECIALTY: PAIN MANAGEMENT CONSULTATION. VISIT TIME: Approximately 11:00 a.m. CHIEF COMPLAINT: Abdominal pain. I was asked by Dr. Srivastava to evaluate thepatient. HISTORY OF PRESENTING ILLNESS: A 30-year-old female reporting pain in the lowerabdominal area ascending to the mid and all the way to the epigastric area,associated with nausea and vomiting. Also, reported dark stools. She was [facility] and was transferred here to Dr. Escobar service. Painreporting ongoing pain that could be severe, requiring morphine pretty mucharound the clock. She states that she had a hysterectomy in April. This painstarted at the beginning of this month. She reports it to be somewhat constant. PAST MEDICAL HISTORY: Psoriatic arthritis. PAST SURGICAL HISTORY: Appendectomy and hysterectomy. SOCIAL HISTORY: Does not use tobacco. ALLERGIES: NUMEROUS ALLERGIES INCLUDING ADHESIVE TAPE, AMOXICILLIN,DOXYCYCLINE, TORADOL, LATEX, METOCLOPRAMIDE, PENICILLIN, TRAMADOL, TRAZODONE,LAMOTRIGINE. MEDICATIONS: Per NOV. PHYSICAL EXAMINATION:VITAL SIGNS: Blood pressure 125/84, respirations 18, heart rate 61.GENERAL: Awake and alert, some distress secondary to pain and discomfort.LUNGS: Normal respiratory rate and effort.ABDOMEN: Soft. No rebound or guarding.EXTREMITIES: No clubbing or cyanosis. Moving all extremities.SKIN: No rash. ASSESSMENT: Abdominal pain of uncertain etiology. PATIENT NAME: LONA MARIE PLAN: I discussed the case with Dr. Srivastava. She was able to eat, although shedoes have vomiting and nausea reported. Encouraged to use the hydrocodone. Wewill see how she does. If she can tolerate p.o., the plan is for her to haveoutpatient workup. She has been seen by CORN POPPER at [facility], Dr. Escobar,the structural engineer. She may need urology also. Dictated By: Naheed Taylor DO WT: CON:PYOLANDA/RADHA/NTSDD: 08/25/2020 11:42:03DT: 08/25/2020 12:23:57Conf#: [id number]/SOWMYA#: [id number] Authenticated by Naheed Taylor DO On 09/17/2020 11:59:26 AM at 1159 PATIENT NAME: LONA MARIE :23:00P.[id number] for patient uywwQNSDOSDQBBYQHY5998-50-28O51:00:05 2020-08-23 [id number]:16:001 [facility] 13:16:00 [phone] [address] PATIENT NAME: LONA MARIE ADMIT DATE: 08/23/20ACCOUNT NO: [id number] ROOM NO: PMellERMS AGE: 30 REPORT TYPE: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 Diarrhea, Hematemesis. FemaleReports: Pelvic pain. Denies: , Vaginal bleeding - abnl, Vaginal discharge. MusculoskeletalDenies: Joint pain, Lumbar pain. HematologicDenies: Bruising. EndocrineDenies: Polyphagia. SkinDenies: Erythema, Jaundice. Allergy/ImmunDenies: Sneezing. NeurologicDenies: Dizziness. PsychiatricReports: Anxiety. Denies: Agitation. Past Medical History - AdultStated Complaint ABDOMINAL PAIN,DIZZINESS,VOMITING,VAllergiesCoded Allergies:metoclopramide (From REGLAN) (Severe, SHORTNESS OF BREATH 08/15/20)latex (Intermediate, RASH 08/15/20)adhesive tape (Mild, RASH 08/15/20)lamotrigine (From LAMICTAL) (Mild, RASH 08/15/20)Penicillins (RASH 08/15/20)amoxicillin (RASH 08/15/20)doxycycline (RASH 08/15/20)ketorolac (From TORADOL) (RASH 08/15/20)tramadol (SHORTNESS OF BREATH 08/15/20)trazodone (RASH-UNKNOWN 08/15/20) Home MedicationsDiscontinued ScriptsoxyCODONE HCL/ACETAMINOPHEN (PERCOCET 5/325 MG) 1 TAB PO Q4H PRN PRN MODERATE PAIN oxyCODONE HCL/ACETAMINOPHEN (PERCOCET 5/325 MG) 1 TAB PO Q4H PRN PRN MODERATE PAIN #20 TAB Prov: 07/09/18 DC: 08/15/20 1540 Therapy completedPROMETHAZINE (PHENERGAN) 12.5 MG PO Q6H PRN NAUSEA PROMETHAZINE (PHENERGAN) 12.5 MG PO Q6H PRN NAUSEA #30 TAB Prov: 07/09/18 DC: 08/15/20 1540 Therapy completedCYCLOBENZAPRINE HCL (FLEXERIL) 5 MG PO TID PRN PRN ABDOMINAL CRAMPS CYCLOBENZAPRINE HCL (FLEXERIL) 5 MG PO TID PRN PRN ABDOMINAL CRAMPS #30 TAB Prov: 07/09/18 DC: 08/15/20 1540 Therapy completed Reported MedicationsACETAMINOPHEN/CODEINE (TYLENOL WITH CODEINE #3 300/30 MG) 1 TAB PO Q4H PRN PRN ACUTE PAIN Discontinued Reported MedicationsPNV WITHOUT CA/FE FUM/FA (-U) (Unknown Dose) PO DAILY levETIRAcetam (KEPPRA) 500 MG PO BID Review of Nursing Notes Rev avail, and agree Physical Exam Vital SignsVital SignsFirst Documented: Result Date Time Pulse Ox 100 12 1506 B/P 163/92 / 1506 B/P Mean 115 12/10 1506 O2 Delivery Room air 08/15 1506 Temp 36.9 12 1506 Pulse 110 /10 1506 Resp 20 08/15 1506 Last Documented: Result Date Time Pulse Ox 100 12/ 1506 B/P 163/92 10 1506 B/P Mean 115 12/10 1506 O2 Delivery Room air 08/15 1506 Temp 36.9 12/10 1506 Pulse 110 12/10 1506 Resp 20 08/15 1506 Review of Vital Signs Reviewed Basic Physical ExamBasic PE GEN: Well appearing/NAD, HEAD: Atraumatic/NC, EYES: PERRL, conj clear, ENT: Membranes moist, NECK: Supple, RESP: No resp distress, CV: Reg rate rhythm, EXT: No gross abnormality, SKIN: No rashes, warm/dry, NEURO: alert oriented, NEURO: gross movement NL, PSYCH: NL thought content Physical ExamGeneral/Const General/Const Awake, AlertAbdomen/GI Abdomen/GI Soft Tenderness/Guarding/Rebound Tender suprapubic. Interpretation Diagnostics Lab Results InterpretationResultsLaboratory Tests 08/15/20 1535:[Embedded Image Not Available]Laboratory Tests: 08/15 08/15 1635 1535 Chemistry Sodium [...] % (Auto) (14.3 - 34.3 %) 24.1 Beauregard % (Auto) (5.1 - 10.4 %) 8.3 Eos % (Auto) (0.1 - 3.0 %) 1.0 Baso % (Auto) (0.1 - 1.0 %) 0.6 Neut # (Auto) (K/mm3) 5.9 Lymph # (Auto) (K/mm3) 2.2 Beauregard # (Auto) (K/mm3) 0.7 Eos # (Auto) (K/mm3) 0.09 Baso # (Auto) (K/mm3) 0.1 Miscellaneous Maternal Serum HCG <1 Urines Urine Color (YELLOW) YELLOW Urine Appearance (CLEAR) CLEAR Urine pH (5 - 9) 5.0 Ur Specific [place] (1.001 - 1.035) >1.035 H Urine Protein [...] Urine Mucus (NONE SEEN) RARE Lab Imaging StatementLaboratory radiographic studies reviewed and considered in the medical decision-making. Patient Discharge Departure Vital Signs/ConditionCondition Stable Clinical ImpressionClinical ImpressionPrimary Impression: Pelvic pain Pt/Provider Handoff Shift Change NoteThis patient's care has been transferred to the incoming physician. We discussed: the patient's chief complaint; labs and imaging that have been completed and those that are still pending; procedures that have been completed and those remaining to be done; any treatment provided and the patient's response to treatment; input from consultants (if any); the remaining treatment plan. The incoming physician will follow up on all pending labs and imaging, make any necessary changes to the current impression and/or treatment plan and provide a final disposition. Handoff NoteThis patient's care has been transferred to and accepted by []. We discussed: the patient's chief complaint; labs and imaging that have been completed and those that are still pending; procedures that have been completed and those remaining to be done; any treatment provided and the patient's response to treatment; any significant change in condition; input from consultants if any; the treatment plan prior to the transfer of care. The accepting physician will follow up on all pending labs and imaging and make any necessary changes to the current impression and/or treatment plan. The accepting physician is now responsible for the patient's care and final disposition. [facility] Transfer[facility] at 1800Discussed Complaint(s) YesLaboratory Evaluation Lab evaluation discussedImaging Studies Ordered, not yet done at 1741RPT #:[id number] OF REPORTEDEmergency department [id number]:05:00F.[id number] for patient [id number]:41:43 2020-08-15 [id number]:05:00 [facility] 15:05:00 [facility])EMERGENCY PROVIDER REPORTREPORT#:[id number] REPORT STATUS: SignedDATE:08/15/20 TIME: 1505 PATIENT: LONA MARIE UNIT #: [id number]#: [id number] ROOM/BED:AGE: 30 SEX: F PCP PHYS: No Primary or Family PhysicianSERVICE AUTHOR: Andressa Razo MD * ALL edits or amendments must be made on the electronic/computer document * See AddendumAndressa Razo I 08/15/20 1505:HPI-General Illness Provider in Triage Zayra NicoleI have greeted and performed a focused rapid initial assessment of this patient.A comprehensive ED assessment and evaluation of the patient, analysis of all test results, and completion of the medical decision-making process will be conducted by additional ED providers. HPI Chief Complaint Abdominal pain Onset Occurred Sudden, Today Severity Pain level 10 out of 10 (ongoing since am sharp pain)PE General/Const Mild distress HEENT Atraumatic, Normocephalic Respiratory/Chest No respiratory distress Abdomen/GI Tenderness present (radiation to lower) MSE Not CompleteThe medical screening exam is not complete. Further evaluation and/or treatment is required. The patient will be re-directed to the emergency department. Past Medical History - AdultPast Medical History:Reports: Seizure disorder. Past Surgical History:Reports: Appendectomy. Re-Evaluation MDM ED CourseMedication(s) OrderedMedication(s) Ordered:Central Nervous System Agents Sig/Arina Start time Last [...] 4 MG X1ED STA 12/10 1503 DC 12/10 IV 12/10 1504 1553 Patient Discharge Departure Vital Signs/ConditionVital SignsFirst Documented: Result Date Time Pulse Ox 100 [...] signs available at the time of this entry have been reviewed. Ashley Rader 08/15/20 1534:HPI-General Illness Free Text HPI NotesFree Text HPI Notespelvic pain GeneralInitial Greet Date/Time 08/15/20 1503 PresentationChief Complaint Abdominal painHx Obtained From PatientSudden in Onset? NoOnset Occurred TodaySymptom Duration ConstantProgression since Onset ConstantExacerbated by NothingRelieved by Nothing ContextAdditional ContextPatient with PMhx of seizure disorder no on meds comes in complaining of lower abdominal pain radiating to the upper abdomen, pain is intense, / associatedwith 2 episodes of vomiting dark content, patient went to [facility] ER and she got CTabdomen that showed ovarian cyst, patient has history of appendectomy and hysterectomy Review of Systems ROS StatementsAll systems rev neg except as marked. Review of SystemsConstitutionalDenies: Chills, Fatigue, Lethargy. EyesDenies: Discharge R, Discharge L. Ears/Nose/ThroatDenies: Ear ringing R, Ear ringing L. RespiratoryDenies: Shortness of breath. CardiovascularDenies: Parox nocturnal dyspnea. GIReports: Abdominal pain, Nausea, Vomiting. Denies: Diarrhea, Hematemesis. FemaleReports: Pelvic pain. Denies: , Vaginal bleeding - abnl, Vaginal discharge. MusculoskeletalDenies: Joint pain, Lumbar pain. HematologicDenies: Bruising. EndocrineDenies: Polyphagia. SkinDenies: Erythema, Jaundice. Allergy/ImmunDenies: Sneezing. NeurologicDenies: Dizziness. PsychiatricReports: Anxiety. Denies: Agitation. Past Medical History - AdultStated Complaint ABDOMINAL PAIN,DIZZINESS,VOMITING,VAllergiesCoded Allergies:metoclopramide (From REGLAN) (Severe, SHORTNESS OF BREATH 08/15/20)latex (Intermediate, RASH 08/15/20)adhesive tape (Mild, RASH 08/15/20)lamotrigine (From LAMICTAL) (Mild, RASH 08/15/20)Penicillins (RASH 08/15/20)amoxicillin (RASH 08/15/20)doxycycline (RASH 08/15/20)ketorolac (From TORADOL) (RASH 08/15/20)tramadol (SHORTNESS OF BREATH 08/15/20)trazodone (RASH-UNKNOWN 08/15/20) Home MedicationsDiscontinued ScriptsoxyCODONE HCL/ACETAMINOPHEN (PERCOCET 5/325 MG) 1 TAB PO Q4H PRN PRN MODERATE PAIN oxyCODONE HCL/ACETAMINOPHEN (PERCOCET 5/325 MG) 1 TAB PO Q4H PRN PRN MODERATE PAIN #20 TAB Prov: 07/09/18 DC: 08/15/20 1540 Therapy completedPROMETHAZINE (PHENERGAN) 12.5 MG PO Q6H PRN NAUSEA PROMETHAZINE (PHENERGAN) 12.5 MG PO Q6H PRN NAUSEA #30 TAB Prov: 07/09/18 DC: 08/15/20 1540 Therapy completedCYCLOBENZAPRINE HCL (FLEXERIL) 5 MG PO TID PRN PRN ABDOMINAL CRAMPS CYCLOBENZAPRINE HCL (FLEXERIL) 5 MG PO TID PRN PRN ABDOMINAL CRAMPS #30 TAB Prov: 07/09/18 DC: 08/15/20 1540 Therapy completed Reported MedicationsACETAMINOPHEN/CODEINE (TYLENOL WITH CODEINE #3 300/30 MG) 1 TAB PO Q4H PRN PRN ACUTE PAIN Discontinued Reported MedicationsPNV WITHOUT CA/FE FUM/FA (-U) (Unknown Dose) PO DAILY levETIRAcetam (KEPPRA) 500 MG PO BID Review of Nursing Notes Rev avail, and agree Physical Exam Vital SignsVital SignsFirst Documented: Result Date Time Pulse Ox 100 / 1506 B/P 163/92 12/10 1506 B/P Mean 115 12/10 1506 O2 Delivery Room air 08/15 1506 Temp 36.9 12/10 1506 Pulse 110 12/10 1506 Resp 20 12/10 1506 Last Documented: Result Date Time Pulse Ox 100 12/10 1506 B/P 163/92 12/10 1506 B/P Mean 115 12/10 1506 O2 Delivery Room air 12/ 1506 Temp 36.9 /10 1506 Pulse 110 12/10 1506 Resp 20 12/10 1506 Review of Vital Signs Reviewed Basic Physical ExamBasic PE GEN: Well appearing/NAD, HEAD: Atraumatic/NC, EYES: PERRL, conj clear, ENT: Membranes moist, NECK: Supple, RESP: No resp distress, CV: Reg rate rhythm, EXT: No gross abnormality, SKIN: No rashes, warm/dry, NEURO: alert oriented, NEURO: gross movement NL, PSYCH: NL thought content Physical ExamGeneral/Const General/Const Awake, AlertAbdomen/GI Abdomen/GI Soft Tenderness/Guarding/Rebound Tender suprapubic. Interpretation Diagnostics Lab Results InterpretationResultsLaboratory Tests 08/15/20 1535:[Embedded Image Not Available]Laboratory Tests: 08/15 08/15 1635 1535 Chemistry Sodium [...] % (Auto) (14.3 - 34.3 %) 24.1 Beauregard % (Auto) (5.1 - 10.4 %) 8.3 Eos % (Auto) (0.1 - 3.0 %) 1.0 Baso % (Auto) (0.1 - 1.0 %) 0.6 Neut # (Auto) (K/mm3) 5.9 Lymph # (Auto) (K/mm3) 2.2 Bea[place]gard # (Auto) (K/mm3) 0.7 Eos # (Auto) (K/mm3) 0.09 Baso # (Auto) (K/mm3) 0.1 Miscellaneous Maternal Serum HCG <1 Urines Urine Color (YELLOW) YELLOW Urine Appearance (CLEAR) CLEAR Urine pH (5 - 9) 5.0 Ur Specific [place] (1.001 - 1.035) >1.035 H Urine Protein [...] Urine Mucus (NONE SEEN) RARE Lab Imaging StatementLaboratory radiographic studies reviewed and considered in the medical decision-making. Patient Discharge Departure Vital Signs/ConditionCondition Stable Clinical ImpressionClinical ImpressionPrimary Impression: Pelvic pain Pt/Provider Handoff Shift Change NoteThis patient's care has been transferred to the incoming physician. We discussed: the patient's chief complaint; labs and imaging that have been completed and those that are still pending; procedures that have been completed and those remaining to be done; any treatment provided and the patient's response to treatment; input from consultants (if any); the remaining treatment plan. The incoming physician will follow up on all pending labs and imaging, make any necessary changes to the current impression and/or treatment plan and provide a final disposition. Handoff NoteThis patient's care has been transferred to and accepted by ]. We discussed: the patient's chief complaint; labs and imaging that have been completed and those that are still pending; procedures that have been completed and those remaining to be done; any treatment provided and the patient's response to treatment; any significant change in condition; input from consultants if any; the treatment plan prior to the transfer of care. The accepting physician will follow up on all pending labs and imaging and make any necessary changes to the current impression and/or treatment plan. The accepting physician is now responsible for the patient's care and final disposition. [facility] Transferred at 1800Discussed Complaint(s) YesLaboratory Evaluation Lab evaluation discussedImaging Studies Ordered, not yet done at 1741 Addendum 1: 08/15/20 180 by Leonardo Rader MD for Thomas Chamberlain MD Patient AddendumAddendum at 1806RPT #:[id number] OF REPORTBig [facility] department [id number]:05:00F.[id number] for patient [id number]:07:14 2020-08-15 [id number]:05:00 [facility] 15:05:00 [facility] ([facility])EMERGENCY PROVIDER REPORTREPORT#:[id number] REPORT STATUS: SignedDATE:08/15/20 TIME: 1505 PATIENT: LONA MARIE UNIT #: [id number]#: [id number] ROOM/BED:AGE: 30 SEX: F PCP PHYS: No Primary or Family PhysicianSERVICE AUTHOR: Andressa Razo MD * ALL edits or amendments must be made on the electronic/computer document * See AddendumAndressa Razo I 08/15/20 1505:HPI-General Illness Provider in Triage Greet NoteI have greeted and performed a focused rapid initial assessment of this patient.A comprehensive ED assessment and evaluation of the patient, analysis of all test results, and completion of the medical decision-making process will be conducted by additional ED providers. HPI Chief Complaint Abdominal pain Onset Occurred Sudden, Today Severity Pain level 10 out of 10 (ongoing since am sharp pain)PE General/Const Mild distress HEENT Atraumatic, Normocephalic Respiratory/Chest No respiratory distress Abdomen/GI Tenderness present (radiation to lower) MSE Not CompleteThe medical screening exam is not complete. Further evaluation and/or treatment is required. The patient will be re-directed to the emergency department. Past Medical History - AdultPast Medical History:Reports: Seizure disorder. Past Surgical History:Reports: Appendectomy. Re-Evaluation MDM ED CourseMedication(s) OrderedMedication(s) Ordered:Central Nervous System Agents Sig/Arina Start time Last [...] X1ED STA 08/15 1653 DC 12/10 IV 12/10 1654 1726 Sodium Chloride 1,000 ML X1ED STA 12/10 1515 DC 12/10 IV 12/10 1516 1552 Gastrointestinal Drugs Sig/Arina Start time Last Medication Dose Route Stop Time Status Admin Ondansetron HCl 4 MG X1ED STA 12/10 1503 DC 12/10 IV 12/10 1504 1553 Patient Discharge Departure Vital Signs/ConditionVital SignsFirst Documented: Result Date Time Pulse Ox 100 [...] signs available at the time of this entry have been reviewed. [facility] 1534:HPI-General Illness Free Text HPI NotesFree Text HPI Notespelvic pain GeneralInitial Greet Date/Time 08/15/20 1503 PresentationChief Complaint Abdominal painHx Obtained From PatientSudden in Onset? NoOnset Occurred TodaySymptom Duration ConstantProgression since Onset ConstantExacerbated by NothingRelieved by Nothing ContextAdditional ContextPatient with PMhx of seizure disorder no on meds comes in complaining of lower abdominal pain radiating to the upper abdomen, pain is intense, / associatedwith 2 episodes of vomiting dark content, patient went to [facility] ER and she got CTabdomen that showed ovarian cyst, patient has history of appendectomy and hysterectomy Review of Systems ROS StatementsAll systems rev neg except as marked. Review of SystemsConstitutionalDenies: Chills, Fatigue, Lethargy. EyesDenies: Discharge R, Discharge L. Ears/Nose/ThroatDenies: Ear ringing R, Ear ringing L. RespiratoryDenies: Shortness of breath. CardiovascularDenies: Parox nocturnal dyspnea. GIReports: Abdominal pain, Nausea, Vomiting. Denies: Diarrhea, Hematemesis. FemaleReports: Pelvic pain. Denies: , Vaginal bleeding - abnl, Vaginal discharge. MusculoskeletalDenies: Joint pain, Lumbar pain. HematologicDenies: Bruising. EndocrineDenies: Polyphagia. SkinDenies: Erythema, Jaundice. Allergy/ImmunDenies: Sneezing. NeurologicDenies: Dizziness. PsychiatricReports: Anxiety. Denies: Agitation. Past Medical History - AdultStated Complaint ABDOMINAL PAIN,DIZZINESS,VOMITING,VAllergiesCoded Allergies:metoclopramide (From REGLAN) (Severe, SHORTNESS OF BREATH 08/15/20)latex (Intermediate, RASH 08/15/20)adhesive tape (Mild, RASH 08/15/20)lamotrigine (From LAMICTAL) (Mild, RASH 08/15/20)Penicillins (RASH 08/15/20)amoxicillin (RASH 08/15/20)doxycycline (RASH 08/15/20)ketorolac (From TORADOL) (RASH 08/15/20)tramadol (SHORTNESS OF BREATH 08/15/20)trazodone (RASH-UNKNOWN 08/15/20) Home MedicationsDiscontinued ScriptsoxyCODONE HCL/ACETAMINOPHEN (PERCOCET 5/325 MG) 1 TAB PO Q4H PRN PRN MODERATE PAIN oxyCODONE HCL/ACETAMINOPHEN (PERCOCET 5/325 MG) 1 TAB PO Q4H PRN PRN MODERATE PAIN #20 TAB Prov: 07/09/18 DC: 08/15/20 1540 Therapy completedPROMETHAZINE (PHENERGAN) 12.5 MG PO Q6H PRN NAUSEA PROMETHAZINE (PHENERGAN) 12.5 MG PO Q6H PRN NAUSEA #30 TAB Prov: 07/09/18 DC: 08/15/20 1540 Therapy completedCYCLOBENZAPRINE HCL (FLEXERIL) 5 MG PO TID PRN PRN ABDOMINAL CRAMPS CYCLOBENZAPRINE HCL (FLEXERIL) 5 MG PO TID PRN PRN ABDOMINAL CRAMPS #30 TAB Prov: 07/09/18 DC: 08/15/20 1540 Therapy completed Reported MedicationsACETAMINOPHEN/CODEINE (TYLENOL WITH CODEINE #3 300/30 MG) 1 TAB PO Q4H PRN PRN ACUTE PAIN Discontinued Reported MedicationsPNV WITHOUT CA/FE FUM/FA (-U) (Unknown Dose) PO DAILY levETIRAcetam (KEPPRA) 500 MG PO BID Review of Nursing Notes Rev avail, and agree Physical Exam Vital SignsVital SignsFirst Documented: Result Date Time Pulse Ox 100 [...] Review of Vital Signs Reviewed Basic Physical ExamBasic PE GEN: Well appearing/NAD, HEAD: Atraumatic/NC, EYES: PERRL, conj clear, ENT: Membranes moist, NECK: Supple, RESP: No resp distress, CV: Reg rate rhythm, EXT: No gross abnormality, SKIN: No rashes, warm/dry, NEURO: alert oriented, NEURO: gross movement NL, PSYCH: NL thought content Physical ExamGeneral/Const General/Const Awake, AlertAbdomen/GI Abdomen/GI Soft Tenderness/Guarding/Rebound Tender suprapubic. Interpretation Diagnostics Lab Results InterpretationResultsLaboratory Tests 08/15/20 1535:[Embedded Image Not Available]Laboratory Tests: 08/15 08/15 1635 1535 Chemistry Sodium [...] % (Auto) (14.3 - 34.3 %) 24.1 Beauregard % (Auto) (5.1 - 10.4 %) 8.3 Eos % (Auto) (0.1 - 3.0 %) 1.0 Baso % (Auto) (0.1 - 1.0 %) 0.6 Neut # (Auto) (K/mm3) 5.9 Lymph # (Auto) (K/mm3) 2.2 Bea[place]gard # (Auto) (K/mm3) 0.7 Eos # (Auto) (K/mm3) 0.09 Baso # (Auto) (K/mm3) 0.1 Miscellaneous Maternal Serum HCG <1 Urines Urine Color (YELLOW) YELLOW Urine Appearance (CLEAR) CLEAR Urine pH (5 - 9) 5.0 Ur Specific [place] (1.001 - 1.035) >1.035 H Urine Protein [...] Urine Mucus (NONE SEEN) RARE Lab Imaging StatementLaboratory radiographic studies reviewed and considered in the medical decision-making. Patient Discharge Departure Vital Signs/ConditionCondition Stable Clinical ImpressionClinical ImpressionPrimary Impression: Pelvic pain Pt/Provider Handoff Shift Change NoteThis patient's care has been transferred to the incoming physician. We discussed: the patient's chief complaint; labs and imaging that have been completed and those that are still pending; procedures that have been completed and those remaining to be done; any treatment provided and the patient's response to treatment; input from consultants (if any); the remaining treatment plan. The incoming physician will follow up on all pending labs and imaging, make any necessary changes to the current impression and/or treatment plan and provide a final disposition. Handoff NoteThis patient's care has been transferred to and accepted by . We discussed: the patient's chief complaint; labs and imaging that have been completed and those that are still pending; procedures that have been completed and those remaining to be done; any treatment provided and the patient's response to treatment; any significant change in condition; input from consultants if any; the treatment plan prior to the transfer of care. The accepting physician will follow up on all pending labs and imaging and make any necessary changes to the current impression and/or treatment plan. The accepting physician is now responsible for the patient's care and final disposition. [facility] Transferred at 1800Discussed Complaint(s) YesLaboratory Evaluation Lab evaluation discussedImaging Studies Ordered, not yet done at 1741 Addendum 1: 08/15/20 180 by Leonardo Rader MD for Thomas Chamberlain MD Patient AddendumAddendum at 1806 Addendum 2: 08/15/20 1807 by Leonardo Rader MD Patient AddendumAddendum at 1807RPT #:[id number] OF REPORTEDEmergency department [id number]:05:00F.[id number] for patient [id number]:07:34 2020-08-15 [id number]:05:00 [facility] 15:05:00 [facility])EMERGENCY PROVIDER REPORTREPORT#:[id number] REPORT STATUS: SignedDATE:08/15/20 TIME: 1505 PATIENT: LONA MARIE UNIT #: [id number]#: [id number] ROOM/BED:AGE: 30 SEX: F PCP PHYS: No Primary or Family PhysicianSERVICE AUTHOR: Andressa Razo MD * ALL edits or amendments must be made on the electronic/computer document * See AddendumAndressa Razo I 08/15/20 1505:HPI-General Illness Provider in Triage Greet NoteI have greeted and performed a focused rapid initial assessment of this patient.A comprehensive ED assessment and evaluation of the patient, analysis of all test results, and completion of the medical decision-making process will be conducted by additional ED providers. HPI Chief Complaint Abdominal pain Onset Occurred Sudden, Today Severity Pain level 10 out of 10 (ongoing since am sharp pain)PE General/Const Mild distress HEENT Atraumatic, Normocephalic Respiratory/Chest No respiratory distress Abdomen/GI Tenderness present (radiation to lower) MSE Not CompleteThe medical screening exam is not complete. Further evaluation and/or treatment is required. The patient will be re-directed to the emergency department. Past Medical History - AdultPast Medical History:Reports: Seizure disorder. Past Surgical History:Reports: Appendectomy. Re-Evaluation MDM ED CourseMedication(s) OrderedMedication(s) Ordered:Central Nervous System Agents Sig/Arina Start time Last Medication Dose Route Stop Time Status Admin Hydromorphone HCl 1 MG X1ED STA 08/15 1652 DCr 12/10 IV 12/10 1653 1724 Morphine Sulfate 4 MG X1ED STA 08/15 1503 DCr 12/10 IV 12/10 1504 1553 [...] 4 MG X1ED STA 12/10 1503 DC 12/10 IV 12/10 1504 1553 Patient Discharge Departure Vital Signs/ConditionVital SignsFirst Documented: Result Date Time Pulse Ox 100 08/15 1506 B/P 163/92 12/10 1506 B/P Mean [...] signs available at the time of this entry have been reviewed. [facility]Leg[facility] 08/15/[facility] 1534:HPI-General Illness Free Text HPI NotesFree Text HPI Notespelvic pain GeneralInitial Greet Date/Time 08/15/20 1503 PresentationChief Complaint Abdominal painHx Obtained From PatientSudden in Onset? NoOnset Occurred TodaySymptom Duration ConstantProgression since Onset ConstantExacerbated by NothingRelieved by Nothing ContextAdditional ContextPatient with PMhx of seizure disorder no on meds comes in complaining of lower abdominal pain radiating to the upper abdomen, pain is intense, 06/15 associatedwith 2 episodes of vomiting dark content, patient went to [facility] ER and she got CTabdomen that showed ovarian cyst, patient has history of appendectomy and hysterectomy Review of Systems ROS StatementsAll systems rev neg except as marked. Review of SystemsConstitutionalDenies: Chills, Fatigue, Lethargy. EyesDenies: Discharge R, Discharge L. Ears/Nose/ThroatDenies: Ear ringing R, Ear ringing L. RespiratoryDenies: Shortness of breath. CardiovascularDenies: Parox nocturnal dyspnea. GIReports: Abdominal pain, Nausea, Vomiting. Denies: Diarrhea, Hematemesis. FemaleReports: Pelvic pain. Denies: , Vaginal bleeding - abnl, Vaginal discharge. MusculoskeletalDenies: Joint pain, Lumbar pain. HematologicDenies: Bruising. EndocrineDenies: Polyphagia. SkinDenies: Erythema, Jaundice. Allergy/ImmunDenies: Sneezing. NeurologicDenies: Dizziness. PsychiatricReports: Anxiety. Denies: Agitation. Past Medical History - AdultStated Complaint ABDOMINAL PAIN,DIZZINESS,VOMITING,VAllergiesCoded Allergies:metoclopramide (From REGLAN) (Severe, SHORTNESS OF BREATH 08/15/20)latex (Intermediate, RASH 08/15/20)adhesive tape (Mild, RASH 08/15/20)lamotrigine (From LAMICTAL) (Mild, RASH 08/15/20)Penicillins (RASH 08/15/20)amoxicillin (RASH 08/15/20)doxycycline (RASH 08/15/20)ketorolac (From TORADOL) (RASH 08/15/20)tramadol (SHORTNESS OF BREATH 08/15/20)trazodone (RASH-UNKNOWN 08/15/20) Home MedicationsDiscontinued ScriptsoxyCODONE HCL/ACETAMINOPHEN (PERCOCET 5/325 MG) 1 TAB PO Q4H PRN PRN MODERATE PAIN oxyCODONE HCL/ACETAMINOPHEN (PERCOCET 5/325 MG) 1 TAB PO Q4H PRN PRN MODERATE PAIN #20 TAB Prov: 07/09/18 DC: 08/15/20 1540 Therapy completedPROMETHAZINE (PHENERGAN) 12.5 MG PO Q6H PRN NAUSEA PROMETHAZINE (PHENERGAN) 12.5 MG PO Q6H PRN NAUSEA #30 TAB Prov: 07/09/18 DC: 08/15/20 1540 Therapy completedCYCLOBENZAPRINE HCL (FLEXERIL) 5 MG PO TID PRN PRN ABDOMINAL CRAMPS CYCLOBENZAPRINE HCL (FLEXERIL) 5 MG PO TID PRN PRN ABDOMINAL CRAMPS #30 TAB Prov: 07/09/18 DC: 08/15/20 1540 Therapy completed Reported MedicationsACETAMINOPHEN/CODEINE (TYLENOL WITH CODEINE #3 300/30 MG) 1 TAB PO Q4H PRN PRN ACUTE PAIN Discontinued Reported MedicationsPNV WITHOUT CA/FE FUM/FA (-U) (Unknown Dose) PO DAILY levETIRAcetam (KEPPRA) 500 MG PO BID Review of Nursing Notes Rev avail, and agree Physical Exam Vital SignsVital SignsFirst Documented: Result Date Time Pulse Ox 100 08/15 1506 B/P 163/92 08/15 1506 B/P Mean 115 08/15 1506 O2 Delivery Room air 08/15 1506 Temp 36.9 08/15 1506 Pulse 110 08/15 1506 Resp 20 08/15 1506 Last Documented: Result Date Time Pulse Ox 100 08/15 150 B/P 163/92 08/15 150 B/P Mean 115 08/15 150 O2 Delivery Room air 08/15 1506 Temp 36.9 08/15 150 Pulse 110 08/15 1506 Resp 20 08/15 150 Review of Vital Signs Reviewed Basic Physical ExamBasic PE GEN: Well appearing/NAD, HEAD: Atraumatic/NC, EYES: PERRL, conj clear, ENT: Membranes moist, NECK: Supple, RESP: No resp distress, CV: Reg rate rhythm, EXT: No gross abnormality, SKIN: No rashes, warm/dry, NEURO: alert oriented, NEURO: gross movement NL, PSYCH: NL thought content Physical ExamGeneral/Const General/Const Awake, AlertAbdomen/GI Abdomen/GI Soft Tenderness/Guarding/Rebound Tender suprapubic. Interpretation Diagnostics Lab Results InterpretationResultsLaboratory Tests 08/15/20 1535:[Embedded Image Not Available]Laboratory Tests: 08/15 08/15 1635 1535 Chemistry Sodium [...] % (Auto) (14.3 - 34.3 %) 24.1 Beauregard % (Auto) (5.1 - 10.4 %) 8.3 Eos % (Auto) (0.1 - 3.0 %) 1.0 Baso % (Auto) (0.1 - 1.0 %) 0.6 Neut # (Auto) (K/mm3) 5.9 Lymph # (Auto) (K/mm3) 2.2 [place]gard # (Auto) (K/mm3) 0.7 Eos # (Auto) (K/mm3) 0.09 Baso # (Auto) (K/mm3) 0.1 Miscellaneous Maternal Serum HCG <1 Urines Urine Color (YELLOW) YELLOW Urine Appearance (CLEAR) CLEAR Urine pH (5 - 9) 5.0 Ur Specific [place] (1.001 - 1.035) >1.035 H Urine Protein [...] Urine Mucus (NONE SEEN) RARE Lab Imaging StatementLaboratory radiographic studies reviewed and considered in the medical decision-making. Patient Discharge Departure Vital Signs/ConditionCondition Stable Clinical ImpressionClinical ImpressionPrimary Impression: Pelvic pain Pt/Provider Handoff Shift Change NoteThis patient's care has been transferred to the incoming physician. We discussed: the patient's chief complaint; labs and imaging that have been completed and those that are still pending; procedures that have been completed and those remaining to be done; any treatment provided and the patient's response to treatment; input from consultants (if any); the remaining treatment plan. The incoming physician will follow up on all pending labs and imaging, make any necessary changes to the current impression and/or treatment plan and provide a final disposition. Handoff NoteThis patient's care has been transferred to and accepted by []. We discussed: the patient's chief complaint; labs and imaging that have been completed and those that are still pending; procedures that have been completed and those remaining to be done; any treatment provided and the patient's response to treatment; any significant change in condition; input from consultants if any; the treatment plan prior to the transfer of care. The accepting physician will follow up on all pending labs and imaging and make any necessary changes to the current impression and/or treatment plan. The accepting physician is now responsible for the patient's care and final disposition. [facility] Transfer[facility] at 1800Discussed Complaint(s) YesLaboratory Evaluation Lab evaluation discussedImaging Studies Ordered, not yet done at 1741 Addendum 1: 08/15/201805 by Leonardo Rader MD for Thomas Chamberlain MD Patient AddendumAddendum at 1806 Addendum 2: 08/15/20 180 by Leonardo Rader MD Patient AddendumAddendum at 1807 Addendum 3: 08/15/20 1810 by Leonardo Rader MD Patient AddendumAddendum at 1810RPT #:[id number] OF REPORTEDEmerbaptist health medical center department [id number]:05:00F.[id number] for patient [id number]:10:14 2020-08-15 [id number]:05:00 [facility] 15:05:00 [facility] ([facility])EMERGENCY PROVIDER REPORTREPORT#:[id number] REPORT STATUS: SignedDATE:08/15/20 TIME: 1505 PATIENT: LONA MARIE UNIT #: [id number]#: [id number] ROOM/BED:AGE: 30 SEX: F PCP PHYS: No Primary or Family PhysicianSERVICE AUTHOR: Andressa Razo MD * ALL edits or amendments must be made on the electronic/computer document * See AddendumAndressa Razo I 08/15/20 1505:HPI-General Illness Provider in Triage Zayra NicoleI have greeted and performed a focused rapid initial assessment of this patient.A comprehensive ED assessment and evaluation of the patient, analysis of all test results, and completion of the medical decision-making process will be conducted by additional ED providers. HPI Chief Complaint Abdominal pain Onset Occurred Sudden, Today Severity Pain level 10 out of 10 (ongoing since am sharp pain)PE General/Const Mild distress HEENT Atraumatic, Normocephalic Respiratory/Chest No respiratory distress Abdomen/GI Tenderness present (radiation to lower) MSE Not CompleteThe medical screening exam is not complete. Further evaluation and/or treatment is required. The patient will be re-directed to the emergency department. Past Medical History - AdultPast Medical History:Reports: Seizure disorder. Past Surgical History:Reports: Appendectomy. Re-Evaluation MDM ED CourseMedication(s) OrderedMedication(s) Ordered:Central Nervous System Agents Sig/Arina Start time Last Medication Dose Route Stop Time Status Admin Fentanyl Citrate 50 MCG X1ED STA 08/15 2109 DC IV 12/10 2110 Hydromorphone HCl 0.5 MG X1ED STA 08/15 2011 DCr 12/10 IV 12/10 2011 2044 Hydromorphone HCl 0.5 MG X1ED STA 12/10 1843 DCr 12/10 IV 12/10 1844 1904 Hydromorphone HCl [...] 4 MG X1ED STA 12/10 1503 DC 12/10 IV 08/15 1504 1553 Patient Discharge Departure Vital Signs/ConditionVital SignsFirst Documented: Result Date Time Pulse Ox 100 [...] signs available at the time of this entry have been reviewed. Ashley Rader 08/15/20 1534:HPI-General Illness Free Text HPI NotesFree Text HPI Notespelvic pain PresentationChief Complaint Abdominal painHx Obtained From PatientSudden in Onset? NoOnset Occurred TodaySymptom Duration ConstantProgression since Onset ConstantExacerbated by NothingRelieved by Nothing ContextAdditional ContextPatient with PMhx of seizure disorder no on meds comes in complaining of lower abdominal pain radiating to the upper abdomen, pain is intense, 06/15 associatedwith 2 episodes of vomiting dark content, patient went to [facility] ER and she got CTabdomen that showed ovarian cyst, patient has history of appendectomy and hysterectomy Review of Systems ROS StatementsAll systems rev neg except as marked. Review of SystemsConstitutionalDenies: Chills, Fatigue, Lethargy. EyesDenies: Discharge R, Discharge L. Ears/Nose/ThroatDenies: Ear ringing R, Ear ringing L. RespiratoryDenies: Shortness of breath. CardiovascularDenies: Parox nocturnal dyspnea. GIReports: Abdominal pain, Nausea, Vomiting. Denies: Diarrhea, Hematemesis. FemaleReports: Pelvic pain. Denies: , Vaginal bleeding - abnl, Vaginal discharge. MusculoskeletalDenies: Joint pain, Lumbar pain. HematologicDenies: Bruising. EndocrineDenies: Polyphagia. SkinDenies: Erythema, Jaundice. Allergy/ImmunDenies: Sneezing. NeurologicDenies: Dizziness. PsychiatricReports: Anxiety. Denies: Agitation. Past Medical History - AdultStated Complaint ABDOMINAL PAIN,DIZZINESS,VOMITING,VAllergiesCoded Allergies:metoclopramide (From REGLAN) (Severe, SHORTNESS OF BREATH 08/15/20)latex (Intermediate, RASH 08/15/20)adhesive tape (Mild, RASH 08/15/20)lamotrigine (From LAMICTAL) (Mild, RASH 08/15/20)Penicillins (RASH 08/15/20)amoxicillin (RASH 08/15/20)doxycycline (RASH 08/15/20)ketorolac (From TORADOL) (RASH 08/15/20)tramadol (SHORTNESS OF BREATH 08/15/20)trazodone (RASH-UNKNOWN 08/15/20) Home MedicationsDiscontinued ScriptsoxyCODONE HCL/ACETAMINOPHEN (PERCOCET 5/325 MG) 1 TAB PO Q4H PRN PRN MODERATE PAIN oxyCODONE HCL/ACETAMINOPHEN (PERCOCET 5/325 MG) 1 TAB PO Q4H PRN PRN MODERATE PAIN #20 TAB Prov: 07/09/18 DC: 08/15/20 1540 Therapy completedPROMETHAZINE (PHENERGAN) 12.5 MG PO Q6H PRN NAUSEA PROMETHAZINE (PHENERGAN) 12.5 MG PO Q6H PRN NAUSEA #30 TAB Prov: 07/09/18 DC: 08/15/20 1540 Therapy completedCYCLOBENZAPRINE HCL (FLEXERIL) 5 MG PO TID PRN PRN ABDOMINAL CRAMPS CYCLOBENZAPRINE HCL (FLEXERIL) 5 MG PO TID PRN PRN ABDOMINAL CRAMPS #30 TAB Prov: 07/09/18 DC: 08/15/20 1540 Therapy completed Reported MedicationsACETAMINOPHEN/CODEINE (TYLENOL WITH CODEINE #3 300/30 MG) 1 TAB PO Q4H PRN PRN ACUTE PAIN Discontinued Reported MedicationsPNV WITHOUT CA/FE FUM/FA (-U) (Unknown Dose) PO DAILY levETIRAcetam (KEPPRA) 500 MG PO BID Review of Nursing Notes Rev avail, and agree Physical Exam Vital SignsVital SignsFirst Documented: Result Date Time Pulse Ox 100 [...] Pulse 99 08/15 1834 Resp 18 08/15 183 O2 Delivery Room air 08/15 1732 Review of Vital Signs Reviewed Basic Physical ExamBasic PE GEN: Well appearing/NAD, HEAD: Atraumatic/NC, EYES: PERRL, conj clear, ENT: Membranes moist, NECK: Supple, RESP: No resp distress, CV: Reg rate rhythm, EXT: No gross abnormality, SKIN: No rashes, warm/dry, NEURO: alert oriented, NEURO: gross movement NL, PSYCH: NL thought content Physical ExamGeneral/Const General/Const Awake, AlertAbdomen/GI Abdomen/GI Soft Tenderness/Guarding/Rebound Tender suprapubic. Interpretation Diagnostics Lab Results InterpretationResultsLaboratory Tests 08/15/20 1535:[Embedded Image Not Available]Laboratory Tests: 08/15 08/15 1635 1535 Chemistry Sodium [...] % (Auto) (14.3 - 34.3 %) 24.1 [place] % (Auto) (5.1 - 10.4 %) 8.3 Eos % (Auto) (0.1 - 3.0 %) 1.0 Baso % (Auto) (0.1 - 1.0 %) 0.6 Neut # (Auto) (K/mm3) 5.9 Lymph # (Auto) (K/mm3) 2.2 [place] # (Auto) (K/mm3) 0.7 Eos # (Auto) (K/mm3) 0.09 Baso # (Auto) (K/mm3) 0.1 Miscellaneous Maternal Serum HCG <1 Urines Urine Color (YELLOW) YELLOW Urine Appearance (CLEAR) CLEAR Urine pH (5 - 9) 5.0 Ur Specific [place] (1.001 - 1.035) >1.035 H Urine Protein [...] RARE Urine Mucus (NONE SEEN) RARE Recent Impressions:ULTRASOUND - US TRANSVAGINAL W/PELVIS 08/15 1751 Report Impression - Status: SIGNED Entered: 08/15/20201836 IMPRESSION:1. Abnormal small volume free pelvic fluid.2. Nonvisualization of the uterus and ovaries. SL: BILL-HImpression By: Jose L Hairston MDULTRASOUND - US PELVIS COMPLETE 08/15 1751 Report Impression - Status: SIGNED Entered: 08/15/20201836 IMPRESSION:1. Abnormal small volume free pelvic fluid.2. Nonvisualization of the uterus and ovaries. SL: BILL-HImpression By: Jose L Hairston MD Lab Imaging StatementLaboratory radiographic studies reviewed and considered in the medical decision-making. Patient Discharge Departure Vital Signs/ConditionCondition Stable Clinical ImpressionClinical ImpressionPrimary Impression: Pelvic pain Pt/Provider Handoff Shift Change NoteThis patient's care has been transferred to the incoming physician. We discussed: the patient's chief complaint; labs and imaging that have been completed and those that are still pending; procedures that have been completed and those remaining to be done; any treatment provided and the patient's response to treatment; input from consultants (if any); the remaining treatment plan. The incoming physician will follow up on all pending labs and imaging, make any necessary changes to the current impression and/or treatment plan and provide a final disposition. Handoff NoteThis patient's care has been transferred to and accepted by ]. We discussed: the patient's chief complaint; labs and imaging that have been completed and those that are still pending; procedures that have been completed and those remaining to be done; any treatment provided and the patient's response to treatment; any significant change in condition; input from consultants if any; the treatment plan prior to the transfer of care. The accepting physician will follow up on all pending labs and imaging and make any necessary changes to the current impression and/or treatment plan. The accepting physician is now responsible for the patient's care and final disposition. [facility] Transferred at 1800Discussed Complaint(s) YesLaboratory Evaluation Lab evaluation discussedImaging Studies Ordered, not yet done Thomas Chamberlain 08/15/202111:HPI-General Illness GeneralInitial Greet Date/Time 08/15/20 1503 Physical Exam Physical ExamGenitourinary Text/Dict Notescuff intact, small area of erythema noted Re-Evaluation MDM ConsultationConsultation Referral/Consult Name Zulay Brooke MD Flask Cleaner Called Hospitalist Requested Call Time 2112 Requested Call Date 08/15/20 Call Returned Call returned Call Returned Time 2112 Call Returned Date 08/15/20 Flask Cleaner Will see patient at 1741 Addendum 1: 08/15/20 180 by Leonardo Rader MD for Thomas Chamberlain MD Patient AddendumAddendum at 1806 Addendum 2: 08/15/201806 by Leonardo Rader MD Patient AddendumAddendum at 1807 Addendum 3: 08/15/201809 by Leonardo Rader MD Patient AddendumAddendum at 1810RPT #:[id number] OF REPORTEDEmergency department [id number]:05:00F.[id number] for patient [id number]:13:50 2020-08-15 [id number]:05:00 HCAWH 15:05:00 [facility])EMERGENCY PROVIDER REPORTREPORT#:[id number] REPORT STATUS: SignedDATE:08/15/20 TIME: 1505 PATIENT: LONA MARIE UNIT #: [id number]#: [id number] ROOM/BED:AGE: 30 SEX: F PCP PHYS: No Primary or Family PhysicianSERVICE AUTHOR: Andressa Razo MD * ALL edits or amendments must be made on the electronic/computer document * See AddendumAndressa Razo I 08/15/20 1505:HPI-General Illness Provider in Triage Zayra NicoleI have greeted and performed a focused rapid initial assessment of this patient.A comprehensive ED assessment and evaluation of the patient, analysis of all test results, and completion of the medical decision-making process will be conducted by additional ED providers. HPI Chief Complaint Abdominal pain Onset Occurred Sudden, Today Severity Pain level 10 out of 10 (ongoing since am sharp pain)PE General/Const Mild distress HEENT Atraumatic, Normocephalic Respiratory/Chest No respiratory distress Abdomen/GI Tenderness present (radiation to lower) MSE Not CompleteThe medical screening exam is not complete. Further evaluation and/or treatment is required. The patient will be re-directed to the emergency department. Past Medical History - AdultPast Medical History:Reports: Seizure disorder. Past Surgical History:Reports: Appendectomy. Re-Evaluation MDM ED CourseMedication(s) OrderedMedication(s) Ordered:Central Nervous System Agents Sig/Arina Start time Last Medication Dose Route Stop Time Status Admin Fentanyl Citrate 50 MCG X1ED STA 12/10 2109 DC 12/10 IV 12/10 2110 2218 Hydromorphone HCl 0.5 MG X1ED STA 08/15 2011 DCr 12/10 IV 1210 2011 2043 Hydromorphone HCl 0.5 MG X1ED STA 12/10 1843 DCr 12/10 IV 12/10 1844 1904 Hydromorphone HCl [...] 4 MG X1ED STA 12/10 1503 DC 12/10 IV 12/10 1504 1553 Patient Discharge Departure Vital Signs/ConditionVital SignsFirst Documented: Result Date Time Pulse Ox 100 12/ 1506 B/P 163/92 12/10 1506 B/P Mean 115 12/10 1506 O2 Delivery Room air 12/ 1506 Temp 36.9 12/10 1506 Pulse 110 12/10 1506 Resp 20 12/10 1506 Last Documented: Result Date Time Pulse Ox 100 /2029 B/P 120/70 12/ 2030 B/P Mean 86 12/10 2030 O2 Delivery Room air 12 2030 Temp 36.8 12/10 2030 Pulse 90 12/10 2030 Resp 18 12/10 2030 All vital signs available at the time of this entry have been reviewed. Ashley Rader 08/15/20 1534:HPI-General Illness Free Text HPI NotesFree Text HPI Notespelvic pain PresentationChief Complaint Abdominal painHx Obtained From PatientSudden in Onset? NoOnset Occurred TodaySymptom Duration ConstantProgression since Onset ConstantExacerbated by NothingRelieved by Nothing ContextAdditional ContextPatient with PMhx of seizure disorder no on meds comes in complaining of lower abdominal pain radiating to the upper abdomen, pain is intense, 06/15 associatedwith 2 episodes of vomiting dark content, patient went to [facility] ER and she got CTabdomen that showed ovarian cyst, patient has history of appendectomy and hysterectomy Review of Systems ROS StatementsAll systems rev neg except as marked. Review of SystemsConstitutionalDenies: Chills, Fatigue, Lethargy. EyesDenies: Discharge R, Discharge L. Ears/Nose/ThroatDenies: Ear ringing R, Ear ringing L. RespiratoryDenies: Shortness of breath. CardiovascularDenies: Parox nocturnal dyspnea. GIReports: Abdominal pain, Nausea, Vomiting. Denies: Diarrhea, Hematemesis. FemaleReports: Pelvic pain. Denies: , Vaginal bleeding - abnl, Vaginal discharge. MusculoskeletalDenies: Joint pain, Lumbar pain. HematologicDenies: Bruising. EndocrineDenies: Polyphagia. SkinDenies: Erythema, Jaundice. Allergy/ImmunDenies: Sneezing. NeurologicDenies: Dizziness. PsychiatricReports: Anxiety. Denies: Agitation. Past Medical History - AdultStated Complaint ABDOMINAL PAIN,DIZZINESS,VOMITING,VAllergiesCoded Allergies:metoclopramide (From REGLAN) (Severe, SHORTNESS OF BREATH 08/15/20)latex (Intermediate, RASH 08/15/20)adhesive tape (Mild, RASH 08/15/20)lamotrigine (From LAMICTAL) (Mild, RASH 08/15/20)Penicillins (RASH 08/15/20)amoxicillin (RASH 08/15/20)doxycycline (RASH 08/15/20)ketorolac (From TORADOL) (RASH 08/15/20)tramadol (SHORTNESS OF BREATH 08/15/20)trazodone (RASH-UNKNOWN 08/15/20) Home MedicationsDiscontinued ScriptsoxyCODONE HCL/ACETAMINOPHEN (PERCOCET 5/325 MG) 1 TAB PO Q4H PRN PRN MODERATE PAIN oxyCODONE HCL/ACETAMINOPHEN (PERCOCET 5/325 MG) 1 TAB PO Q4H PRN PRN MODERATE PAIN #20 TAB Prov: 07/09/18 DC: 08/15/20 1540 Therapy completedPROMETHAZINE (PHENERGAN) 12.5 MG PO Q6H PRN NAUSEA PROMETHAZINE (PHENERGAN) 12.5 MG PO Q6H PRN NAUSEA #30 TAB Prov: 07/09/18 DC: 08/15/20 1540 Therapy completedCYCLOBENZAPRINE HCL (FLEXERIL) 5 MG PO TID PRN PRN ABDOMINAL CRAMPS CYCLOBENZAPRINE HCL (FLEXERIL) 5 MG PO TID PRN PRN ABDOMINAL CRAMPS #30 TAB Prov: 07/09/18 DC: 08/15/20 1540 Therapy completed Reported MedicationsACETAMINOPHEN/CODEINE (TYLENOL WITH CODEINE #3 300/30 MG) 1 TAB PO Q4H PRN PRN ACUTE PAIN Discontinued Reported MedicationsPNV WITHOUT CA/FE FUM/FA (-U) (Unknown Dose) PO DAILY levETIRAcetam (KEPPRA) 500 MG PO BID Review of Nursing Notes Rev avail, and agree Physical Exam Vital SignsVital SignsFirst Documented: Result Date Time Pulse Ox 100 [...] Review of Vital Signs Reviewed Basic Physical ExamBasic PE GEN: Well appearing/NAD, HEAD: Atraumatic/NC, EYES: PERRL, conj clear, ENT: Membranes moist, NECK: Supple, RESP: No resp distress, CV: Reg rate rhythm, EXT: No gross abnormality, SKIN: No rashes, warm/dry, NEURO: alert oriented, NEURO: gross movement NL, PSYCH: NL thought content Physical ExamGeneral/Const General/Const Awake, AlertAbdomen/GI Abdomen/GI Soft Tenderness/Guarding/Rebound Tender suprapubic. Interpretation Diagnostics Lab Results InterpretationResultsLaboratory Tests 08/15/20 1535:[Embedded Image Not Available]Laboratory Tests: 08/15 08/15 1635 1535 Chemistry Sodium [...] % (Auto) (14.3 - 34.3 %) 24.1 Beauregard % (Auto) (5.1 - 10.4 %) 8.3 Eos % (Auto) (0.1 - 3.0 %) 1.0 Baso % (Auto) (0.1 - 1.0 %) 0.6 Neut # (Auto) (K/mm3) 5.9 Lymph # (Auto) (K/mm3) 2.2 Bea[place]gard # (Auto) (K/mm3) 0.7 Eos # (Auto) (K/mm3) 0.09 Baso # (Auto) (K/mm3) 0.1 Miscellaneous Maternal Serum HCG <1 Urines Urine Color (YELLOW) YELLOW Urine Appearance (CLEAR) CLEAR Urine pH (5 - 9) 5.0 Ur Specific [place] (1.001 - 1.035) >1.035 H Urine Protein [...] RARE Urine Mucus (NONE SEEN) RARE Recent Impressions:ULTRASOUND - US TRANSVAGINAL W/PELVIS 08/15 1751 Report Impression - Status: SIGNED Entered: 08/15/20201836 IMPRESSION:1. Abnormal small volume free pelvic fluid.2. Nonvisualization of the uterus and ovaries. SL: BILL-HImpression By: Jose L Hairston MDULTRASOUND - US PELVIS COMPLETE 08/15 1751 Report Impression - Status: SIGNED Entered: 08/15/20201836 IMPRESSION:1. Abnormal small volume free pelvic fluid.2. Nonvisualization of the uterus and ovaries. SL: BILL-HImpression By: Jose L Hairston MD Lab Imaging StatementLaboratory radiographic studies reviewed and considered in the medical decision-making. Patient Discharge Departure Vital Signs/ConditionCondition Stable Clinical ImpressionClinical ImpressionPrimary Impression: Pelvic pain Pt/Provider Handoff Shift Change NoteThis patient's care has been transferred to the incoming physician. We discussed: the patient's chief complaint; labs and imaging that have been completed and those that are still pending; procedures that have been completed and those remaining to be done; any treatment provided and the patient's response to treatment; input from consultants (if any); the remaining treatment plan. The incoming physician will follow up on all pending labs and imaging, make any necessary changes to the current impression and/or treatment plan and provide a final disposition. Handoff NoteThis patient's care has been transferred to and accepted by []. We discussed: the patient's chief complaint; labs and imaging that have been completed and those that are still pending; procedures that have been completed and those remaining to be done; any treatment provided and the patient's response to treatment; any significant change in condition; input from consultants if any; the treatment plan prior to the transfer of care. The accepting physician will follow up on all pending labs and imaging and make any necessary changes to the current impression and/or treatment plan. The accepting physician is now responsible for the patient's care and final disposition. [facility] Transferred at 1800Discussed Complaint(s) YesLaboratory Evaluation Lab evaluation discussedImaging Studies Ordered, not yet done Thomas Chamberlain 08/15/202111:HPI-General Illness GeneralInitial Greet Date/Time 08/15/20 1503 Physical Exam Physical ExamGenitourinary Text/Dict Notescuff intact, small area of erythema noted Re-Evaluation MDM Re-Evaluation/Progress #1Text/Dict NoteDr. Edwardo at bedsideTime of Re-Eval 2237Re-Eval Status Unchanged ConsultationConsultation Referral/Consult Name Zulay Brooke MD Flask Cleaner Called Hospitalist Requested Call Time 2112 Requested Call Date 08/15/20 Call Returned Call returned Call Returned Time 2112 Call Returned Date 08/15/20 Flask Cleaner Will see patient at 1741 Addendum 1: 08/15/20 180 by Leonardo Rader MD for Thomas Chamberlain MD Patient AddendumAddendum at 1806 Addendum 2: 08/15/201806 by Leonardo Rader MD Patient AddendumAddendum at 1807 Addendum 3: 08/15/20 1810 by Leonardo Rader MD Patient AddendumAddendum at 1810RPT #:[id number] OF REPORTEDEmerbaptist health medical center department [id number]:05:00F.[id number] for patient [id number]:12:35 2020-08-15 [id number]:05:00 [facility]CA[facility] 15:05:00 [facility] ([facility])EMERGENCY PROVIDER REPORTREPORT#:[id number] REPORT STATUS: SignedDATE:08/15/20 TIME: 1505 PATIENT: LONA MARIE UNIT #: [id number]#: [id number] ROOM/BED:AGE: 30 SEX: F PCP PHYS: No Primary or Family PhysicianSERVICE AUTHOR: Andressa Razo MD * ALL edits or amendments must be made on the electronic/computer document * See AddendumAndressa Razo I 08/15/20 1505:HPI-General Illness Provider in Triage Greet NoteI have greeted and performed a focused rapid initial assessment of this patient.A comprehensive ED assessment and evaluation of the patient, analysis of all test results, and completion of the medical decision-making process will be conducted by additional ED providers. HPI Chief Complaint Abdominal pain Onset Occurred Sudden, Today Severity Pain level 10 out of 10 (ongoing since am sharp pain)PE General/Const Mild distress HEENT Atraumatic, Normocephalic Respiratory/Chest No respiratory distress Abdomen/GI Tenderness present (radiation to lower) MSE Not CompleteThe medical screening exam is not complete. Further evaluation and/or treatment is required. The patient will be re-directed to the emergency department. Past Medical History - AdultPast Medical History:Reports: Seizure disorder. Past Surgical History:Reports: Appendectomy. Re-Evaluation MDM ED CourseMedication(s) OrderedMedication(s) Ordered:Central Nervous System Agents Sig/Arina Start time Last Medication Dose Route Stop Time Status Admin Fentanyl Citrate 50 MCG X1ED STA 08/15 2109 DC 12/ IV 08/15 2110 2218 Hydromorphone HCl 0.5 MG X1ED STA 08/15 2011 DCr 12/10 IV 08/15 Hydromorphone HCl 0.5 MG X1ED STA 08/15 1843 DCr 12/10 IV 12/10 184 1904 Hydromorphone HCl 1 MG X1ED STA 08/15 1652 DCr 12/10 IV 08/15 1653 1724 Morphine Sulfate 4 MG X1ED STA 08/15 1503 DCr 12/10 IV 12/10 1504 1553 [...] 4 MG X1ED STA 12 1503 DC 12/10 IV 12/10 1504 1553 Patient Discharge Departure Vital Signs/ConditionVital SignsFirst Documented: Result Date Time Pulse Ox 100 [...] signs available at the time of this entry have been reviewed. José Rader 08/15/20 1534:HPI-General Illness Free Text HPI NotesFree Text HPI Notespelvic pain PresentationChief Complaint Abdominal painHx Obtained From PatientSudden in Onset? NoOnset Occurred TodaySymptom Duration ConstantProgression since Onset ConstantExacerbated by NothingRelieved by Nothing ContextAdditional ContextPatient with PMhx of seizure disorder no on meds comes in complaining of lower abdominal pain radiating to the upper abdomen, pain is intense, 06/15 associatedwith 2 episodes of vomiting dark content, patient went to [facility] ER and she got CTabdomen that showed ovarian cyst, patient has history of appendectomy and hysterectomy Review of Systems ROS StatementsAll systems rev neg except as marked. Review of SystemsConstitutionalDenies: Chills, Fatigue, Lethargy. EyesDenies: Discharge R, Discharge L. Ears/Nose/ThroatDenies: Ear ringing R, Ear ringing L. RespiratoryDenies: Shortness of breath. CardiovascularDenies: Parox nocturnal dyspnea. GIReports: Abdominal pain, Nausea, Vomiting. Denies: Diarrhea, Hematemesis. FemaleReports: Pelvic pain. Denies: , Vaginal bleeding - abnl, Vaginal discharge. MusculoskeletalDenies: Joint pain, Lumbar pain. HematologicDenies: Bruising. EndocrineDenies: Polyphagia. SkinDenies: Erythema, Jaundice. Allergy/ImmunDenies: Sneezing. NeurologicDenies: Dizziness. PsychiatricReports: Anxiety. Denies: Agitation. Past Medical History - AdultStated Complaint ABDOMINAL PAIN,DIZZINESS,VOMITING,VAllergiesCoded Allergies:metoclopramide (From REGLAN) (Severe, SHORTNESS OF BREATH 08/15/20)latex (Intermediate, RASH 08/15/20)adhesive tape (Mild, RASH 08/15/20)lamotrigine (From LAMICTAL) (Mild, RASH 08/15/20)Penicillins (RASH 08/15/20)amoxicillin (RASH 08/15/20)doxycycline (RASH 08/15/20)ketorolac (From TORADOL) (RASH 08/15/20)tramadol (SHORTNESS OF BREATH 08/15/20)trazodone (RASH-UNKNOWN 08/15/20) Home MedicationsDiscontinued ScriptsoxyCODONE HCL/ACETAMINOPHEN (PERCOCET 5/325 MG) 1 TAB PO Q4H PRN PRN MODERATE PAIN oxyCODONE HCL/ACETAMINOPHEN (PERCOCET 5/325 MG) 1 TAB PO Q4H PRN PRN MODERATE PAIN #20 TAB Prov: 07/09/18 DC: 08/15/20 1540 Therapy completedPROMETHAZINE (PHENERGAN) 12.5 MG PO Q6H PRN NAUSEA PROMETHAZINE (PHENERGAN) 12.5 MG PO Q6H PRN NAUSEA #30 TAB Prov: 07/09/18 DC: 08/15/20 1540 Therapy completedCYCLOBENZAPRINE HCL (FLEXERIL) 5 MG PO TID PRN PRN ABDOMINAL CRAMPS CYCLOBENZAPRINE HCL (FLEXERIL) 5 MG PO TID PRN PRN ABDOMINAL CRAMPS #30 TAB Prov: 07/09/18 DC: 08/15/20 1540 Therapy completed Reported MedicationsACETAMINOPHEN/CODEINE (TYLENOL WITH CODEINE #3 300/30 MG) 1 TAB PO Q4H PRN PRN ACUTE PAIN Discontinued Reported MedicationsPNV WITHOUT CA/FE FUM/FA (-U) (Unknown Dose) PO DAILY levETIRAcetam (KEPPRA) 500 MG PO BID Review of Nursing Notes Rev avail, and agree Physical Exam Vital SignsVital SignsFirst Documented: Result Date Time Pulse Ox 100 [...] Review of Vital Signs Reviewed Basic Physical ExamBasic PE GEN: Well appearing/NAD, HEAD: Atraumatic/NC, EYES: PERRL, conj clear, ENT: Membranes moist, NECK: Supple, RESP: No resp distress, CV: Reg rate rhythm, EXT: No gross abnormality, SKIN: No rashes, warm/dry, NEURO: alert oriented, NEURO: gross movement NL, PSYCH: NL thought content Physical ExamGeneral/Const General/Const Awake, AlertAbdomen/GI Abdomen/GI Soft Tenderness/Guarding/Rebound Tender suprapubic. Interpretation Diagnostics Lab Results InterpretationResultsLaboratory Tests 08/15/20 1535:[Embedded Image Not Available]Laboratory Tests: 08/15 08/15 1635 1535 Chemistry Sodium [...] % (Auto) (14.3 - 34.3 %) 24.1 Bea[place]gard % (Auto) (5.1 - 10.4 %) 8.3 Eos % (Auto) (0.1 - 3.0 %) 1.0 Baso % (Auto) (0.1 - 1.0 %) 0.6 Neut # (Auto) (K/mm3) 5.9 Lymph # (Auto) (K/mm3) 2.2 [place] # (Auto) (K/mm3) 0.7 Eos # (Auto) (K/mm3) 0.09 Baso # (Auto) (K/mm3) 0.1 Miscellaneous Maternal Serum HCG <1 Urines Urine Color (YELLOW) YELLOW Urine Appearance (CLEAR) CLEAR Urine pH (5 - 9) 5.0 Ur Specific [place] (1.001 - 1.035) >1.035 H Urine Protein [...] RARE Urine Mucus (NONE SEEN) RARE Recent Impressions:ULTRASOUND - US TRANSVAGINAL W/PELVIS 08/15 1751 Report Impression - Status: SIGNED Entered: 08/15/2020 8389 IMPRESSION:1. Abnormal small volume free pelvic fluid.2. Nonvisualization of the uterus and ovaries. SL: SG-HImpression By: [email or web address] - Rubin Gerguis, MDULTRASOUND - US PELVIS COMPLETE 08/15 1751 Report Impression - Status: SIGNED Entered: 08/15/2020 1837 IMPRESSION:1. Abnormal small volume free pelvic fluid.2. Nonvisualization of the uterus and ovaries. SL: SG-HImpression By: [email or web address] - Rubin Hairston MD Lab Imaging StatementLaboratory radiographic studies reviewed and considered in the medical decision-making. Patient Discharge Departure Vital Signs/ConditionCondition Stable Clinical ImpressionClinical ImpressionPrimary Impression: Pelvic pain Pt/Provider Handoff Shift Change NoteThis patient's care has been transferred to the incoming physician. We discussed: the patient's chief complaint; labs and imaging that have been completed and those that are still pending; procedures that have been completed and those remaining to be done; any treatment provided and the patient's response to treatment; input from consultants (if any); the remaining treatment plan. The incoming physician will follow up on all pending labs and imaging, make any necessary changes to the current impression and/or treatment plan and provide a final disposition. Handoff NoteThis patient's care has been transferred to and accepted by []. We discussed: the patient's chief complaint; labs and imaging that have been completed and those that are still pending; procedures that have been completed and those remaining to be done; any treatment provided and the patient's response to treatment; any significant change in condition; input from consultants if any; the treatment plan prior to the transfer of care. The accepting physician will follow up on all pending labs and imaging and make any necessary changes to the current impression and/or treatment plan. The accepting physician is now responsible for the patient's care and final disposition. [facility] Transfer[facility] at 1800Discussed Complaint(s) YesLaboratory Evaluation Lab evaluation discussedImaging Studies Ordered, not yet done Thomas Chamberlain 08/15/20 2112:HPI-General Illness GeneralInitial Greet Date/Time 08/15/20 1503 Physical Exam Physical ExamGenitourinary Text/Dict Notescuff intact, small area of erythema noted, no bleeding Re-Evaluation MDM Re-Evaluation/Progress #1Text/Dict NoteDr. [place] at bedsideTime of Re-Eval 2237Re-Eval Status Unchanged ConsultationConsultation Referral/Consult Name Zulay Brooek MD Flask Cleaner Called Hospitalist Requested Call Time 2112 Requested Call Date 08/15/20 Call Returned Call returned Call Returned Time 2112 Call Returned Date 08/15/20 Flask Cleaner Will see patient Free Text MDM NotesFree Text MDM NotesSeen by Dr Brooke, will admit for intractable pelvic pain. Patient Discharge Departure Disposition DecisionAdmit Admit Physician Name Zulay Brooke MD Admit Physician Hospitalist Request Time 2313 Request Date 08/15/20 )( Admission Accepts Yes )( Accepted Time 2313 )( Accepted Date 08/15/20 Discharge/Care PlanCounseled Regarding Diagnosis, Lab results, Imaging studies, Need for admission at 1741 at 2320 Addendum 1: 08/15/20 180 by Leonardo Rader MD for Thomas Chamberlain MD Patient AddendumAddendum at 1806 Addendum 2: 08/15/20 180 by Leonardo Rader MD Patient AddendumAddendum at 1807 Addendum 3: 08/15/20 1810 by Leonardo Rader MD Patient AddendumAddendum at 1810RPT #:[id number] OF REPORTEDEmergency department [id number]:05:00F.[id number] for patient [id number]:21:12 2020-08-15 [id number]:05:00 [facility] 15:05:00 [facility])EMERGENCY PROVIDER REPORTREPORT#:[id number] REPORT STATUS: SignedDATE:08/15/20 TIME: 1505 PATIENT: LONA MARIE UNIT #: [id number]#: [id number] ROOM/BED: .2660-AAGE: 30 SEX: F PCP PHYS: Zulay Brooke AUTHOR: Andressa Razo MD * ALL edits or amendments must be made on the electronic/computer document * See AddendumAndressa Razo I 08/15/20 1505:HPI-General Illness Provider in Triage Grezoran NicoleI have greeted and performed a focused rapid initial assessment of this patient.A comprehensive ED assessment and evaluation of the patient, analysis of all test results, and completion of the medical decision-making process will be conducted by additional ED providers. HPI Chief Complaint Abdominal pain Onset Occurred Sudden, Today Severity Pain level 10 out of 10 (ongoing since am sharp pain)PE General/Const Mild distress HEENT Atraumatic, Normocephalic Respiratory/Chest No respiratory distress Abdomen/GI Tenderness present (radiation to lower) MSE Not CompleteThe medical screening exam is not complete. Further evaluation and/or treatment is required. The patient will be re-directed to the emergency department. Past Medical History - AdultPast Medical History:Reports: Seizure disorder. Past Surgical History:Reports: Appendectomy. Re-Evaluation MDM ED CourseMedication(s) OrderedMedication(s) Ordered:Central Nervous System Agents Sig/Arina Start time Last Medication Dose Route Stop Time Status Admin Fentanyl Citrate 50 MCG X1ED STA 08/15 2109 DC 12/10 IV 12/ 2110 2218 Hydromorphone HCl 0.5 MG X1ED STA 08/15 2011 DCr 12/10 IV 1210 2011 2044 Hydromorphone HCl 0.5 MG X1ED STA 12/ 1843 DCr 12/10 IV 12/10 1844 1904 Hydromorphone HCl [...] 4 MG X1ED STA 08/15 1503 DC 12/10 IV 12/ 1504 1553 Patient Discharge Departure Vital Signs/ConditionVital SignsFirst Documented: Result Date Time Pulse Ox 100 [...] signs available at the time of this entry have been reviewed. [facility]Leg[facility] 08/[facility] 1534:HPI-General Illness Free Text HPI NotesFree Text HPI Notespelvic pain PresentationChief Complaint Abdominal painHx Obtained From PatientSudden in Onset? NoOnset Occurred TodaySymptom Duration ConstantProgression since Onset ConstantExacerbated by NothingRelieved by Nothing ContextAdditional ContextPatient with PMhx of seizure disorder no on meds comes in complaining of lower abdominal pain radiating to the upper abdomen, pain is intense, /10 associatedwith 2 episodes of vomiting dark content, patient went to [facility] ER and she got CTabdomen that showed ovarian cyst, patient has history of appendectomy and hysterectomy Review of Systems ROS StatementsAll systems rev neg except as marked. Review of SystemsConstitutionalDenies: Chills, Fatigue, Lethargy. EyesDenies: Discharge R, Discharge L. Ears/Nose/ThroatDenies: Ear ringing R, Ear ringing L. RespiratoryDenies: Shortness of breath. CardiovascularDenies: Parox nocturnal dyspnea. GIReports: Abdominal pain, Nausea, Vomiting. Denies: Diarrhea, Hematemesis. FemaleReports: Pelvic pain. Denies: , Vaginal bleeding - abnl, Vaginal discharge. MusculoskeletalDenies: Joint pain, Lumbar pain. HematologicDenies: Bruising. EndocrineDenies: Polyphagia. SkinDenies: Erythema, Jaundice. Allergy/ImmunDenies: Sneezing. NeurologicDenies: Dizziness. PsychiatricReports: Anxiety. Denies: Agitation. Past Medical History - AdultStated Complaint ABDOMINAL PAIN,DIZZINESS,VOMITING,VAllergiesCoded Allergies:metoclopramide (From REGLAN) (Severe, SHORTNESS OF BREATH 08/15/20)latex (Intermediate, RASH 08/15/20)adhesive tape (Mild, RASH 08/15/20)lamotrigine (From LAMICTAL) (Mild, RASH 08/15/20)Penicillins (RASH 08/15/20)amoxicillin (RASH 08/15/20)doxycycline (RASH 08/15/20)ketorolac (From TORADOL) (RASH 08/15/20)tramadol (SHORTNESS OF BREATH 08/15/20)trazodone (RASH-UNKNOWN 08/15/20) Home MedicationsDiscontinued ScriptsoxyCODONE HCL/ACETAMINOPHEN (PERCOCET 5/325 MG) 1 TAB PO Q4H PRN PRN MODERATE PAIN oxyCODONE HCL/ACETAMINOPHEN (PERCOCET 5/325 MG) 1 TAB PO Q4H PRN PRN MODERATE PAIN #20 TAB Prov: 07/09/18 DC: 08/15/20 1540 Therapy completedPROMETHAZINE (PHENERGAN) 12.5 MG PO Q6H PRN NAUSEA PROMETHAZINE (PHENERGAN) 12.5 MG PO Q6H PRN NAUSEA #30 TAB Prov: 07/09/18 DC: 08/15/20 1540 Therapy completedCYCLOBENZAPRINE HCL (FLEXERIL) 5 MG PO TID PRN PRN ABDOMINAL CRAMPS CYCLOBENZAPRINE HCL (FLEXERIL) 5 MG PO TID PRN PRN ABDOMINAL CRAMPS #30 TAB Prov: 07/09/18 DC: 08/15/20 1540 Therapy completed Reported MedicationsACETAMINOPHEN/CODEINE (TYLENOL WITH CODEINE #3 300/30 MG) 1 TAB PO Q4H PRN PRN ACUTE PAIN Discontinued Reported MedicationsPNV WITHOUT CA/FE FUM/FA (-U) (Unknown Dose) PO DAILY levETIRAcetam (KEPPRA) 500 MG PO BID Review of Nursing Notes Rev avail, and agree Physical Exam Vital SignsVital SignsFirst Documented: Result Date Time Pulse Ox 100 [...] Review of Vital Signs Reviewed Basic Physical ExamBasic PE GEN: Well appearing/NAD, HEAD: Atraumatic/NC, EYES: PERRL, conj clear, ENT: Membranes moist, NECK: Supple, RESP: No resp distress, CV: Reg rate rhythm, EXT: No gross abnormality, SKIN: No rashes, warm/dry, NEURO: alert oriented, NEURO: gross movement NL, PSYCH: NL thought content Physical ExamGeneral/Const General/Const Awake, AlertAbdomen/GI Abdomen/GI Soft Tenderness/Guarding/Rebound Tender suprapubic. Interpretation Diagnostics Lab Results InterpretationResultsLaboratory Tests 08/15/20 1535:[Embedded Image Not Available]Laboratory Tests: 08/15 08/15 1635 1535 Chemistry Sodium [...] % (Auto) (14.3 - 34.3 %) 24.1 Bea[place] % (Auto) (5.1 - 10.4 %) 8.3 Eos % (Auto) (0.1 - 3.0 %) 1.0 Baso % (Auto) (0.1 - 1.0 %) 0.6 Neut # (Auto) (K/mm3) 5.9 Lymph # (Auto) (K/mm3) 2.2 [place] # (Auto) (K/mm3) 0.7 Eos # (Auto) (K/mm3) 0.09 Baso # (Auto) (K/mm3) 0.1 Miscellaneous Maternal Serum HCG <1 Urines Urine Color (YELLOW) YELLOW Urine Appearance (CLEAR) CLEAR Urine pH (5 - 9) 5.0 Ur Specific [place] (1.001 - 1.035) >1.035 H Urine Protein [...] RARE Urine Mucus (NONE SEEN) RARE Recent Impressions:ULTRASOUND - US TRANSVAGINAL W/PELVIS 08/15 1751 Report Impression - Status: SIGNED Entered: 08/15/20201836 IMPRESSION:1. Abnormal small volume free pelvic fluid.2. Nonvisualization of the uterus and ovaries. SL: BILL-HImpression By: [email or web address] - Rubin Hairston MDULTRASOUND - US PELVIS COMPLETE 08/15 1751 Report Impression - Status: SIGNED Entered: 08/15/20201836 IMPRESSION:1. Abnormal small volume free pelvic fluid.2. Nonvisualization of the uterus and ovaries. SL: ANDREYHImpression By: [email or web address] - Rubin Hairston MD Lab Imaging StatementLaboratory radiographic studies reviewed and considered in the medical decision-making. Patient Discharge Departure Vital Signs/ConditionCondition Stable Clinical ImpressionClinical ImpressionPrimary Impression: Pelvic pain Pt/Provider Handoff Shift Change NoteThis patient's care has been transferred to the incoming physician. We discussed: the patient's chief complaint; labs and imaging that have been completed and those that are still pending; procedures that have been completed and those remaining to be done; any treatment provided and the patient's response to treatment; input from consultants (if any); the remaining treatment plan. The incoming physician will follow up on all pending labs and imaging, make any necessary changes to the current impression and/or treatment plan and provide a final disposition. Handoff NoteThis patient's care has been transferred to and accepted by []. We discussed: the patient's chief complaint; labs and imaging that have been completed and those that are still pending; procedures that have been completed and those remaining to be done; any treatment provided and the patient's response to treatment; any significant change in condition; input from consultants if any; the treatment plan prior to the transfer of care. The accepting physician will follow up on all pending labs and imaging and make any necessary changes to the current impression and/or treatment plan. The accepting physician is now responsible for the patient's care and final disposition[facility] Transfer[facility] at 1800Discussed Complaint(s) YesLaboratory Evaluation Lab evaluation discussedImaging Studies Ordered, not yet done Thomas Chamberlain 08/15/202111:HPI-General Illness GeneralInitial Greet Date/Time 08/15/20 1503 Physical Exam Physical ExamGenitourinary Text/Dict Notescuff intact, small area of erythema noted, no bleeding Re-Evaluation MDM Re-Evaluation/Progress #1Text/Dict NoteDr. Edwardo at bedsideTime of Re-Eval 2237Re-Eval Status Unchanged ConsultationConsultation Referral/Consult Name Zulay Brooke MD Flask Cleaner Called Hospitalist Requested Call Time 2112 Requested Call Date 08/15/20 Call Returned Call returned Call Returned Time 2112 Call Returned Date 08/15/20 Flask Cleaner Will see patient Free Text MDM NotesFree Text MDM NotesSeen by Dr Brooke, will admit for intractable pelvic pain. Patient Discharge Departure Disposition DecisionAdmit Admit Physician Name Zulay Brooke MD Admit Physician Hospitalist Request Time 2313 Request Date 08/15/20 )( Admission Accepts Yes )( Accepted Time 2313 )( Accepted Date 08/15/20 Discharge/Care PlanCounseled Regarding Diagnosis, Lab results, Imaging studies, Need for admission at 1741 at 2320 Addendum 1: 08/15/20 180 by Leonardo Rader MD Patient AddendumAddendum at 1806 at 0217 Addendum 2: 08/15/20 180 by Leonardo Rader MD Patient AddendumAddendum at 1807 Addendum 3: 08/15/20 1810 by Leonardo Rader MD Patient AddendumAddendum at 1810RPT #:[id number] OF REPORTEDEmergency department [id number]:05:00F.[id number] for patient [id number]:17:59 2020-08-15 [id number]:05:00 [facility])EMERGENCY PROVIDER REPORTREPORT#:[id number] REPORT STATUS: SignedDATE:08/15/20 TIME: 1505 PATIENT: LONA MARIE UNIT #: [id number]#: [id number] [id number] S[facility] F PCP PHYS: Zulay BrookeERVICE AUTHOR: Andressa Razo MD * ALL edits or amendments must be made on the electronic/computer document * See AddendumAndressa Razo I 08/15/20 1505:HPI-General Illness GeneralInitial Greet Date/Time 08/15/20 1503 Provider in Triage Greet NoteI have greeted and performed a focused rapid initial assessment of this patient.A comprehensive ED assessment and evaluation of the patient, analysis of all test results, and completion of the medical decision-making process will be conducted by additional ED providers. HPI Chief Complaint Abdominal pain Onset Occurred Sudden, Today Severity Pain level 10 out of 10 (ongoing since am sharp pain)PE General/Const Mild distress HEENT Atraumatic, Normocephalic Respiratory/Chest No respiratory distress Abdomen/GI Tenderness present (radiation to lower) MSE Not CompleteThe medical screening exam is not complete. Further evaluation and/or treatment is required. The patient will be re-directed to the emergency department. Past Medical History - AdultHome MedicationsDiscontinued ScriptsoxyCODONE HCL/ACETAMINOPHEN (PERCOCET 5/325 MG) 1 TAB PO Q4H PRN PRN MODERATE PAIN oxyCODONE HCL/ACETAMINOPHEN (PERCOCET 5/325 MG) 1 TAB PO Q4H PRN PRN MODERATE PAIN #20 TAB Prov: 07/09/18 DC: 08/15/20 1540 Therapy completedPROMETHAZINE (PHENERGAN) 12.5 MG PO Q6H PRN NAUSEA PROMETHAZINE (PHENERGAN) 12.5 MG PO Q6H PRN NAUSEA #30 TAB Prov: 07/09/18 DC: 08/15/20 1540 Therapy completedCYCLOBENZAPRINE HCL (FLEXERIL) 5 MG PO TID PRN PRN ABDOMINAL CRAMPS CYCLOBENZAPRINE HCL (FLEXERIL) 5 MG PO TID PRN PRN ABDOMINAL CRAMPS #30 TAB Prov: 07/09/18 DC: 08/15/20 1540 Therapy completed Discontinued Reported MedicationsPNV WITHOUT CA/FE FUM/FA (-U) (Unknown Dose) PO DAILY levETIRAcetam (KEPPRA) 500 MG PO BID Past Medical History:Reports: Seizure disorder. Past Surgical History:Reports: Appendectomy. Re-Evaluation MDM ED CourseMedication(s) OrderedMedication(s) Ordered:Central Nervous System Agents Sig/Arina Start time Last Medication Dose Route Stop Time Status Admin Fentanyl Citrate 50 MCG X1ED STA 08/15 2109 DC 12/10 IV 12/ 2110 2218 Hydromorphone HCl 0.5 MG X1ED STA 08/15 2011 DCr 12/10 IV 12/10 2011 204 Hydromorphone HCl 0.5 MG X1ED STA 1210 1843 DCr 12/10 IV 12/10 1844 1904 Hydromorphone HCl 1 MG X1ED STA 12 1652 DCr 12/10 IV 12/10 1653 1724 Morphine Sulfate 4 MG X1ED STA 12 1503 DCr 12/ IV 12/ 1504 1553 Electrolytic, Caloric, And Jair Sig/Arina Start time Last Medication Dose Route Stop Time Status Admin Sodium Chloride 1,000 ML X1ED STA 12 1653 DC 12/10 IV 12/ 1654 1726 Sodium Chloride 1,000 ML X1ED STA 08/15 1515 DC 12/10 IV 12/10 1516 1552 Gastrointestinal Drugs Sig/Arina Start time Last Medication Dose Route Stop Time Status Admin Ondansetron HCl 4 MG X1ED STA 08/15 1503 DC 12/10 IV 12/10 1504 1553 Ashley Rader 08/15/20 1534:HPI-General Illness Free Text HPI NotesFree Text HPI Notespelvic pain PresentationChief Complaint Abdominal painHx Obtained From PatientSudden in Onset? NoOnset Occurred TodaySymptom Duration ConstantProgression since Onset ConstantExacerbated by NothingRelieved by Nothing ContextAdditional ContextPatient with PMhx of seizure disorder no on meds comes in complaining of lower abdominal pain radiating to the upper abdomen, pain is intense, 06/15 associatedwith 2 episodes of vomiting dark content, patient went to [facility] ER and she got CTabdomen that showed ovarian cyst, patient has history of appendectomy and hysterectomy Review of Systems ROS StatementsAll systems rev neg except as marked. Review of SystemsConstitutionalDenies: Chills, Fatigue, Lethargy. EyesDenies: Discharge R, Discharge L. Ears/Nose/ThroatDenies: Ear ringing R, Ear ringing L. RespiratoryDenies: Shortness of breath. CardiovascularDenies: Parox nocturnal dyspnea. GIReports: Abdominal pain, Nausea, Vomiting. Denies: Diarrhea, Hematemesis. FemaleReports: Pelvic pain. Denies: , Vaginal bleeding - abnl, Vaginal discharge. MusculoskeletalDenies: Joint pain, Lumbar pain. HematologicDenies: Bruising. EndocrineDenies: Polyphagia. SkinDenies: Erythema, Jaundice. Allergy/ImmunDenies: Sneezing. NeurologicDenies: Dizziness.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 Date 01/25/19 Discharge/Care PlanCounseled Regarding Diagnosis, Lab results, Imaging studies, Need for follow-up,When to return to EDPrescriptionsAndrew King 01/25/191816:HPI- Female GeneralInitial Greet Date/Time 01/25/19 1413 Physical Exam Vital SignsVital Signs Interpretation Diagnostics Lab Results InterpretationResults Re-Evaluation [facility] ED CourseMedication(s) Ordered Patient Discharge Departure Vital Signs/ConditionVital Signs Supervising Physician Note MidLv Saw Pt AloneI have reviewed the PA/LINOTYPE MACHINIST APPRENTICE's note and plan of care. I was available for consultation as needed at all times during the patient's visit in the emergency department. I agree with the clinical impression, plan and disposition. at 1652 at 1817RPT #:[id number] OF REPORTEDEmerbaptist health medical center department [id number]:38:[id number] for patient [id number]:17:56
[2023-07-27 16:37] LABS: Specific Gravity < 1.005 (1.005-1.030); Urine Bilirubin NEGATIVE (Negative); Urine Blood Negative (Negative); Urine Clarity Clear (Clear); Urine Color Colorless (Yellow); Urine Glucose NEGATIVE (Negative); Urine Protein NEGATIVE (Negative); Urine Urobilinogen Normal (Normal)
--- NOTE | 2023-07-27 16:43 | RAD REPORT ---
EXAM DESCRIPTION: RAD - Chest Pa And Lat (2 Views) - 07/27/2023 4:29 pm CLINICAL HISTORY: CHEST PAIN COMPARISON: Chest Single View dated 07/07/2023; Chest Single View dated 07/02/2023; Chest Single View dated 02/07/2023; Chest Single View dated 01/01/2023 FINDINGS: Lines: None. Lungs: No evidence of edema or pneumonia. Pleural: No significant pleural effusions or pneumothorax. Cardiac: The heart size is within normal limits. Mediastinum: Within normal limits. Bones: No acute fractures. Other: None IMPRESSION: No acute cardiopulmonary disease.
--- NOTE | 2023-07-27 17:13 | EDPHYS ---
Physician Documentation [facility] Name: Lona Marie Age: 33 yrs Sex: Female : 1990 Arrival Date: 07/27/2023 Time: 15:57 Bed 2 Private MD: Aj Kessler HPI: 07/27 17:06 This 33 yrs old Female presents to ER via Ambulatory with complaints of Chest peg Pain, Shoulder Pain, Anxiety. 17:06 The patient or guardian reports chest pain that is located primarily in the anterior peg chest wall, left. The pain does not radiate. 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 - Social history:: Smoking status: Patient reports the use of cigarette tobacco products, denies chronic smoking, but will smoke occasionally. ROS: 17:07 Constitutional: Negative for fever, chills, and weight loss, Eyes: Negative for injury, peg pain, redness, and discharge, ENT: Negative for injury, pain, and discharge, Neck: Negative for injury, pain, and swelling, Cardiovascular: Negative for chest pain, palpitations, and edema, Respiratory: Negative for shortness of breath, cough, wheezing, and pleuritic chest pain, Abdomen/GI: Negative for abdominal pain, nausea, vomiting, diarrhea, and constipation, Back: Negative for injury and pain, : Negative for injury, bleeding, discharge, and swelling, MS/Extremity: Negative for injury and deformity, Skin: Negative for injury, rash, and discoloration, Neuro: Negative for headache, weakness, numbness, tingling, and seizure, Psych: Negative for depression, anxiety, suicide ideation, homicidal ideation, and hallucinations, Allergy/Immunology: Negative for hives, rash, and allergies, Endocrine: Negative for neck swelling, polydipsia, polyuria, polyphagia, and marked weight changes, Hematologic/Lymphatic: Negative for swollen nodes, abnormal bleeding, and unusual bruising, Exam: 17:07 Constitutional: This is a well developed, well nourished patient who is awake, alert, peg and in no acute distress. Head/Face: Normocephalic, atraumatic. Eyes: Pupils equal round and reactive to light, extra-ocular motions intact. Lids and lashes normal. Conjunctiva and sclera are non-icteric and not injected. Cornea within normal limits. Periorbital areas with no swelling, redness, or edema. ENT: Nares patent. No nasal discharge, no septal abnormalities noted. Tympanic membranes are normal and external auditory canals are clear. Oropharynx with no redness, swelling, or masses, exudates, or evidence of obstruction, uvula midline. Mucous membranes moist. Neck: Trachea midline, no thyromegaly or masses palpated, and no cervical lymphadenopathy. Supple, full range of motion without nuchal rigidity, or vertebral point tenderness. No Meningismus. Cardiovascular: Regular rate and rhythm with a normal S1 and S2. No gallops, murmurs, or rubs. Normal PMI, no JVD. No pulse deficits. Respiratory: Lungs have equal breath sounds bilaterally, clear to auscultation and percussion. No rales, rhonchi or wheezes noted. No increased work of breathing, no retractions or nasal flaring. Abdomen/GI: Soft, non-tender, with normal bowel sounds. No distension or tympany. No guarding or rebound. No evidence of tenderness throughout. Skin: Warm, dry with normal turgor. Normal color with no rashes, no lesions, and no evidence of cellulitis. MS/ Extremity: Pulses equal, no cyanosis. Neurovascular intact. Full, normal range of motion. Neuro: Awake and alert, GCS 15, oriented to person, place, time, and situation. Cranial nerves II-XII grossly intact. Motor strength 5/5 in all extremities. Sensory grossly intact. Cerebellar exam normal. Normal gait. 17:07 Chest/axilla: Inspection: normal, Palpation: tenderness, that is mild, of the left breast, LEFT BREAST LUMP, 17:19 ECG was reviewed by the Attending Physician. [facility] Vital Signs: 16:08 BP 146 / 88; Pulse 88; Resp 16; Temp 97.8(O); Pulse Ox 100% on R/A; Weight 67.59 kg; nj1 Height 5 ft. 3 in. ; Pain 10/10; 17:26 BP 135 / 78; Pulse 74; Resp 16; Pulse Ox 100% on R/A; mb9 16:08 Body Mass Index 26.39 (67.59 kg, 160.02 cm) [facility] 16:08 Pain Scale: Adult [facility] MDM: 15:[address] [facility] 17:09 Differential diagnosis: chest wall pain, pneumonia, pneumothorax, pulmonary embolus. [facility] Differential Diagnosis sepsis. HEART Score: History: Slightly Suspicious (0), Age: < or = 45 years (0), Risk Factors: No Risk Factors Known (0). Data reviewed: vital signs, nurses notes, lab test result(s), urinalysis, radiologic studies. Consideration of Admission/Observation Escalation of care including admission/observation considered. I considered the following discharge prescriptions or medication management in the emergency department Medications were administered in the Emergency Department. See MAR. Test considered but Not performed: EKG: NO EKG. 07/27 16: Order name: Urinalysis w/ reflexes; Complete Time: 17:04 [facility] 07/27 16:01 Order name: PREGU; Complete Time: 17:04 [facility] 07/27 16:01 Order name: Chest Pa And Lat (2 Views) XRAY; Complete Time: 17:04 [facility] 07/27 16:01 Order name: EKG; Complete Time: 16:02 [facility] 07/27 16:01 Order name: EKG - Nurse/Tech; Complete Time: 16:17 [facility] EC:19 Rate is 89 beats/min. Rhythm is regular. QRS Aline is Normal. MD interval is normal. QRS pge interval is normal. QT interval is normal. No Q waves. T waves are Normal. No ST changes noted. Clinical impression: Normal ECG and No evidence of ischemia. Interpreted by me. Reviewed by me. Administered Medications: 17:12 Drug: HYDROmorphone IM 2 mg IM once Route: IM; Site: right deltoid; mb9 17:27 Follow up: Response: No adverse reaction mb9 17:12 Drug: Diazepam PO 5 mg PO once Route: PO; mb9 17:27 Follow up: Response: No adverse reaction mb9 17:13 Drug: Promethazine PO 25 mg PO once Route: PO; mb9 17:27 Follow up: Response: No adverse reaction mb9 17:26 Not Given (Other Intervention Used): [id number] mg IM once mb9 Disposition Summary: 07/27/23 17:12 Discharge Ordered Notes: Location: Home [facility] Problem: new peg Symptoms: have improved peg Condition: Stable peg Diagnosis - Chest pain, unspecified - LEFT BREAST MASS, TENDERNESS, NO CELLULITIS peg Followup: peg - With: Private Physician - When: 2 - 3 days - Reason: Recheck today's complaints, Continuance of care, Re-evaluation by your physician Discharge Instructions: - Discharge Summary Sheet peg - Chest Wall Pain peg - Chest Wall Pain, [id number] peg - Breast Tenderness [facility] Forms: - Medication Reconciliation Form [facility] - Thank You Letter peg - Antibiotic Education peg - Prescription Opioid Use peg - Patient Portal Instructions peg - Leadership Thank You Letter peg Signatures: Dispatcher [employer] Aj Cabral MD MD cha Breneman, Mary Beth RN RN mb9 Ange Mackey RN RN nj1
--- NOTE | 2023-07-27 17:13 | ER ---
Nurse's Notes [facility] Name: Lona Marie Age: 33 yrs Sex: Female : 1990 Arrival Date: 07/27/2023 Time: 15:57 Bed 2 Private MD: Diagnosis: Chest pain, unspecified-LEFT BREAST MASS, TENDERNESS, NO CELLULITIS Presentation: 07/27 16:08 Chief complaint: Patient states: Left sided chest pain for a month and a half, from nj1 breast to back, that worsen last night. "pain is triggering my anxiety". Left sided breast discharge, "more now than before". Schedule for harvey lumpectomy in August. 16:08 Method Of Arrival: Ambulatory [facility] 16:08 Coronavirus screen: Vaccine status: Patient reports receiving the 2nd dose of the covid nj1 vaccine. Ebola Screen: Patient denies travel to an Ebola-affected area in the 21 days before illness onset. 16:08 Initial Sepsis Screen: Does the patient meet any 2 criteria? No. Patient's initial [facility] sepsis screen is negative. Does the patient have a suspected source of infection? No. Patient's initial sepsis screen is negative. 16:08 Risk Assessment: Do you want to hurt yourself or someone else? Patient reports no nj1 desire to harm self or others. Onset of symptoms was July 26, 2023. 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 - Social history:: Smoking status: Patient reports the use of cigarette tobacco products, denies chronic smoking, but will smoke occasionally. Screenin:49 [facility] ED Fall Risk Assessment (Adult) History of falling in the last 3 months, mb9 including since admission No falls in past 3 months (0 pts) Confusion or Disorientation No (0 pts) Intoxicated or Sedated No (0 pts) Impaired Gait No (0 pts) Mobility Assist Device Used No (0 pt) Altered Elimination No (0 pt) Score/Fall Risk Level 0 - 2 = Low Risk Oriented to surroundings, Maintained a safe environment, Educated pt \\T\\ family on fall prevention, incl call for assistance when getting out of bed. Abuse screen: Denies threats or abuse. Nutritional screening: No deficits noted. Tuberculosis screening: No symptoms or risk factors identified. Assessment: 16:17 General: Appears in no apparent distress. Behavior is calm, cooperative. Pain: mb9 Complains of pain in chest Pain does not radiate. Pain currently is 10 out of 10 on a pain scale. Quality of pain is described as sharp, shooting, Is chronic. Neuro: Cool Agitation-Sedation Scale (RASS): 0 - Alert and Calm Level of Consciousness is awake, alert, obeys commands, Oriented to person, place, time, situation, Appropriate for age. Cardiovascular: Heart tones S1 S2 present Patient's skin is warm and dry. Respiratory: Airway is patent Respiratory effort is even, unlabored, Respiratory pattern is regular, symmetrical, Breath sounds are clear bilaterally. GI: No signs and/or symptoms were reported involving the gastrointestinal system. : No signs and/or symptoms were reported regarding the genitourinary system. EENT: No signs and/or symptoms were reported regarding the EENT system. Derm: Skin is pink, warm \\T\\ dry. Musculoskeletal: Range of motion: intact in all extremities. 17:26 Reassessment: No changes from previously documented assessment. Patient and/or family mb9 updated on plan of care and expected duration. Pain level reassessed. Patient is alert, oriented x 3, equal unlabored respirations, skin warm/dry/pink. Vital Signs: 16:08 BP 146 / 88; Pulse 88; Resp 16; Temp 97.8(O); Pulse Ox 100% on R/A; Weight 67.59 kg; nj1 Height 5 ft. 3 in. ; Pain 10/10; 17:26 BP 135 / 78; Pulse 74; Resp 16; Pulse Ox 100% on R/A; mb9 16:08 Body Mass Index 26.39 (67.59 kg, 160.02 cm) nj1 16:08 Pain Scale: Adult [facility] ED Course: 15:58 Patient arrived in ED. rg4 15:59 Aj Doe MD is Attending Physician. peg 16:05 Deepali Reyes, RN is Primary Nurse. mb9 16:17 EKG done, by ED staff, reviewed by Aj Doe MD. mb9 16:18 Placed in gown. Bed in low position. Call light in reach. Side rails up X 1. Client mb9 placed on continuous cardiac and pulse oximetry monitoring. NIBP monitoring applied. 16:31 Chest Pa And Lat (2 Views) XRAY In Process Unspecified. EDMS 16:40 Triage completed. nj1 16:48 Arm band placed on. mb9 16:49 No provider procedures requiring assistance completed. Patient maintains SpO2 mb9 saturation greater than 95% on room air. 17:27 Patient did not have IV access during this emergency room visit. mb9 Administered Medications: 17:12 Drug: HYDROmorphone IM 2 mg IM once Route: IM; Site: right deltoid; mb9 17:27 Follow up: Response: No adverse reaction mb9 17:12 Drug: Diazepam PO 5 mg PO once Route: PO; mb9 17:27 Follow up: Response: No adverse reaction mb9 17:13 Drug: Promethazine PO 25 mg PO once Route: PO; mb9 17:27 Follow up: Response: No adverse reaction mb9 17:26 Not Given (Other Intervention Used): [id number] mg IM once mb9 Medication: 16:48 VIS not applicable for this client. mb9 Outcome: 17:12 Discharge ordered by . peg 17:27 Discharged to home ambulatory, with family, mb9 17:27 Condition: stable 17:27 Discharge instructions given to patient, family, Instructed on discharge instructions, follow up and referral plans. Demonstrated understanding of instructions, follow-up care, 17:27 Patient left the ED. mb9 Signatures: Dispatcher [employer] EDIA Aj Doe MD MD cha Garcia, Rubi rg4 Deepali Reyes, RN RN mb9 Ange Mackey RN RN nj1
[2023-07-27] MEDS ORDERED: DIAZEPAM 5 MG TABLET ONE (17:32)
[2023-07-27] MEDS ORDERED: PROMETHAZINE 25 MG TABLET ONE (17:33)
[2023-07-27] MEDS ORDERED: HYDROMORPHONE HCL 2 MG/ML inj ONE (17:33)
[2023-07-27 17:35] VITALS: TEMP 97.8; O2SAT 100
[2023-07-27 17:36] VITALS: BP 135/78
--- NOTE | 2023-07-28 16:51 | EKG ---
Test Date: 2023-07-27 Test Time: 16:13:42 Nitroglycerin Separator Operator: MB MEASUREMENT RESULTS: Intervals: Rate: 89 [place]: 126 QRSD: 68 QT: 348 QTc: 423 [place]: P: 63 [place]: 126 QRS: 83 T: 63 INTERPRETIVE STATEMENTS: Normal sinus rhythm with sinus arrhythmia Normal ECG Compared to ECG 07/07/2023 02:20:10 No significant changes Electronically Signed On 07-28-23 16:49:07 COMMUNICATIONS PROJECT LEAD by Alan Owen
== END 2023-07-27 17:27 | disposition home or self-care (01) ==
LOC: ER 15:57
DX: R07.9 Chest pain, unspecified (principal); N63.0 Unspecified lump in unspecified breast; F17.210 Nicotine dependence, cigarettes, uncomplicated; Z88.0 Allergy status to penicillin; Z88.3 Allergy status to other anti-infective agents; Z88.5 Allergy status to narcotic agent; Z88.8 Allergy status to other drugs, medicaments and biological substances; Z91.040 Latex allergy status; Z91.048 Other nonmedicinal substance allergy status; Z90.710 Acquired absence of both cervix and uterus
CPT/HCPCS: 93005; 81025; 81003; 71046; 96372; 99285; Q0169; J1170

== ENCOUNTER 2023-07-28 15:15 | Emergency (ER) | payer OTHER ==
[2023-07-28] MEDS ORDERED: DIAZEPAM 5 MG TABLET ONE (15:47)
--- OUTSIDE RECORDS SUMMARY | 2023-07-28 16:28 | XMS REPORT | Continuity of Care Document ---
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 Yes clonazepam U nivers 0.5 mg 0-05 0.5 mg ity of tablet 10:54: tablet [place] [address] TAKE 1 Medical TABLET BY Branch MOUTH [...] 800 mg ity of tablet 10:54: tablet [address] [place] [address] levETIRAcet 2022-09 Yes TWICE Unive rs am 500 mg 0-05 DAILY. ity of tablet 10:54: [address] famotidine 2022-09 Yes famotidine U nivers 20 mg 0-05 20 mg ity of tablet 10:54: tablet [address] [place] [address] clonazePAM 2022-09 Yes clonazepam U nivers 0.5 mg 0-05 0.5 mg ity of tablet 10:54: tablet [place] [address] TAKE 1 Medical TABLET BY Branch MOUTH [...] 800 mg ity of tablet 10:54: tablet [address] [place] [address] levETIRAcet 2022-09 Yes TWICE Unive rs am 500 mg 0-05 DAILY. ity of tablet 10:54: [address] [place] [address] famotidine 2022-09 Yes famotidine U nivers 20 mg 0-05 20 mg ity of tablet 10:54: tablet [address] [place] [address] clonazePAM 2022-09 Yes clonazepam U nivers 0.5 mg 0-05 0.5 mg ity of tablet 10:54: tablet [place] [address] TAKE 1 Medical TABLET BY Branch MOUTH [...] 800 mg ity of tablet 10:54: tablet [address] [place] [address] levETIRAcet 2022-09 Yes TWICE Unive rs am 500 mg 0-05 DAILY. ity of tablet 10:54: [address] [place] [address] famotidine 2022-09 Yes famotidine U nivers 20 mg 0-05 20 mg ity of tablet 10:54: tablet [address] [place] [address] clonazePAM 2022-09 Yes clonazepam U nivers 0.5 [...] 800 mg ity of tablet 10:54: tablet [address] levETIRAcet 2022-09 Yes TWICE Unive rs am 500 mg 0-05 DAILY. ity of tablet 10:54: [address] famotidine 2022-09 Yes famotidine U nivers 20 mg 0-05 20 mg ity of tablet 10:54: tablet [address] [place] [address] clonazePAM 2022-09 Yes clonazepam U nivers 0.5 [...] 800 mg ity of tablet 10:54: tablet [address] [place] [address] levETIRAcet 2022-09 Yes TWICE Unive rs am 500 mg 0-05 DAILY. ity of tablet 10:54: [address] [place] [address] famotidine 2022-09 Yes famotidine U nivers 20 mg 0-05 20 mg ity of tablet 10:54: tablet [address] [place] [address] clonazePAM 2022-09 Yes clonazepam U nivers 0.5 [...] 800 mg ity of tablet 10:54: tablet [address] levETIRAcet 2022-09 Yes TWICE Unive rs am 500 mg 0-05 DAILY. ity of tablet 10:54: [address] famotidine 2022-09 Yes famotidine U nivers 20 mg 0-05 20 mg ity of tablet 10:54: tablet [address] clonazePAM 2022-09 Yes clonazepam U nivers 0.5 mg 0-05 0.5 mg ity of tablet 10:54: tablet [place] [address] TAKE 1 Medical TABLET BY Branch MOUTH [...] 800 mg ity of tablet 10:54: tablet [facility] levETIRAcet 2022-09 Yes TWICE Unive rs am 500 mg 0-05 DAILY. ity of tablet 10:54: [facility] famotidine 2022-09 Yes famotidine U nivers 20 mg 0-05 20 mg ity of tablet 10:54: tablet [address] [place] [address] clonazePAM 2022-09 Yes clonazepam U nivers 0.5 [...] 800 mg ity of tablet 10:54: tablet [address] [place] [address] levETIRAcet 2022-09 Yes TWICE Unive rs am 500 mg 0-05 DAILY. ity of tablet 10:54: [facility] famotidine 2022-09 Yes famotidine U nivers 20 mg 0-05 20 mg ity of tablet 10:54: tablet 07 Medical Branch clonazePAM 2022-09 Yes clonazepam U [...] ical ion Branch aerosol inhaler azithromyci Yes [id number] Take two Univers n 03-02 [id number] on first ity of (ZITHROMAX 00:00: day, take [place] Z-OK) 250 00 one a day Medi shanice mg tablet afterwards Bran ch azelastine Yes [id number] 1{spray Use 1 Univers 137 mcg 03-02 239960 } [place] in ity of (0.1 %) 00:00: each [place] nasal spray 00 nostril in [facility] morning and 1 [place] in the evening. Use in each nostril as directed azithromyci Yes [id number] Take two Univers n 03-02 [id number] on first ity of (ZITHROMAX 00:00: day, take [place] Z-OK) 250 00 one a day Medi shanice mg tablet afterwards Bran ch azelastine 0 Yes [id number] 1{spray Use 1 [facility] 137 mcg 03-02 [id number] } [place] in ity of (0.1 %) 00:00: each [place] nasal spray 00 nostril in [facility] morning and 1 [place] in the evening. Use in each nostril as directed azithromyci Yes [id number] Take two Univers n 6-27 [id number] on first ity of (ZITHROMAX 00:00: day, take [place] Z-OK) 250 00 one a day Medi shanice mg tablet afterwards Bran ch azelastine 2023-0 Yes [id number] 1{spray Use 1 Univers 137 mcg 6-27 357861 } [place] in ity of (0.1 %) 00:00: each [place] nasal spray 00 nostril in [facility] the Branch morning and 1 [place] in the evening. Use in each nostril as directed azithromyci 2023-0 Yes [id number] Take two Univers n 6- [id number] on first ity of (ZITHROMAX 00:00: day, take [place] Z-OK) 250 00 one a day Medi shanice mg tablet afterwards Bran ch azelastine 3-0 Yes [id number] 1{spray Use 1 Univers 137 mcg 6-27 122519 } [place] in ity of (0.1 %) 00:00: each [place] nasal spray 00 nostril in [facility] the Branch morning and 1 [place] in the evening. Use in each nostril as directed azithromyci 3-0 Yes [id number] Take two Univers n 627 [id number] on first ity of (ZITHROMAX 00:00: day, take [place] Z-OK) 250 00 one a day Medi shanice mg tablet afterwards Bran ch azelastine 3-0 Yes [id number] 1{spray Use 1 [facility] 137 mcg 6-27 357853 } [place] in ity of (0.1 %) 00:00: each [place] nasal spray 00 nostril in [facility] the Branch morning and 1 [place] in the evening. Use in each nostril as directed azithromyci 3-0 Yes [id number] Take two Univers n 627 [id number] on first ity of (ZITHROMAX 00:00: day, take [place] Z-OK) 250 00 one a day Medi shanice mg tablet afterwards Bran ch azelastine 2023-0 Yes [id number] 1{spray Use 1 Univers 137 mcg 6-27 [id number] } [place] in ity of (0.1 %) 00:00: each [place] nasal spray 00 nostril in [facility] the Branch morning and 1 [place] in the evening. Use in each nostril as directed azithromyci 2023-0 Yes [id number] Take two Univers n 6-27 [id number] on first ity of (ZITHROMAX 00:00: day, take [place] Z-OK) 250 00 one a day Medi shanice mg tablet afterwards Bran ch azelastine 2023-0 Yes [id number] 1{spray Use 1 Univers 137 mcg 6-27 537618 } [place] in ity of (0.1 %) 00:00: each [place] nasal spray 00 nostril in [facility] morning and 1 [place] in the evening. Use in each nostril as directed azithromyci 2023-0 Yes [id number] Take two Univers n 6-27 071610 on first ity of (ZITHROMAX 00:00: day, take [place] Z-OK) 250 00 one a day Medi shanice mg tablet afterwards Bran ch azelastine 2023-0 Yes [id number] 1{spray Use 1 Univers 137 mcg 6-27 540404 } [place] in ity of (0.1 %) 00:00: each [place] nasal spray 00 nostril in [facility] morning and 1 [place] in the evening. Use in each nostril as directed azithromyci 2023-0 Yes [id number] Take two Univers n 6-27 060516 on first ity of (ZITHROMAX 00:00: day, take [place] Z-OK) 250 00 one a day Medi shanice mg tablet afterwards Bran ch azelastine 2023-0 Yes [id number] 1{spray Use 1 Univers 137 mcg 6-27 722837 } [place] in ity of (0.1 %) 00:00: each [place] nasal spray 00 nostril in [facility] morning and 1 [place] in the evening. Use in each nostril as directed azithromyci 2023-0 Yes [id number] Take two Univers n 6-27 [id number] on first ity of (ZITHROMAX 00:00: day, take [place] Z-OK) 250 00 one a day Medi shanice mg tablet afterwards Bran ch azelastine 2023-0 Yes [id number] 1{spray Use 1 Univers 137 mcg 6-27 394403 } [place] in ity of (0.1 %) 00:00: each [place] nasal spray 00 nostril in Me dical the Branch morning and 1 [place] in the evening. Use in each nostril as directed azelastine 2023-0 Yes [id number] 1{spray Use 1 Univers 137 mcg 6-27 801039 } [place] in ity of (0.1 %) 00:00: each [place] nasal spray 00 nostril in Me dical the Branch morning and 1 [place] in the evening. Use in each nostril as directed azelastine 2023-0 Yes [id number] 1{spray Use 1 Univers 137 mcg 6-27 381338 } [place] in ity of (0.1 %) 00:00: each [place] nasal spray 00 nostril in Ne dical the Branch morning and 1 [place] in the evening. Use in each nostril as directed azelastine 2023-0 Yes [id number] 1{spray Use 1 Univers 137 mcg 6-27 708229 } [place] in ity of (0.1 %) 00:00: each [place] nasal spray 00 nostril in Ne dical the Branch morning and 1 [place] in the evening. Use in each nostril as directed azelastine 2023-0 Yes [id number] 1{spray Use 1 Univers 137 mcg 6-27 276495 } [place] in ity of (0.1 %) 00:00: each [place] nasal spray 00 nostril in Ne dical the Branch morning and 1 [place] in the evening. Use in each nostril as directed azelastine 2023-0 Yes [id number] 1{spray Use 1 Univers 137 mcg 6-27 834571 } [place] in ity of (0.1 %) 00:00: each [place] nasal spray 00 nostril in Ne dical the Branch morning and 1 [place] in the evening. Use in each nostril as directed azelastine 2023-0 Yes [id number] 1{spray Use 1 Univers 137 mcg 6-27 799580 } [place] in ity of (0.1 %) 00:00: each [place] nasal spray 00 nostril in Ne dical the Branch morning and 1 [place] in the evening. Use in each nostril as directed azelastine 2023-0 Yes [id number] 1{spray Use 1 Univers 137 mcg 6-27 436968 } [place] in ity of (0.1 %) 00:00: each [place] nasal spray 00 nostril in Me dical the Branch morning and 1 [place] in the evening. Use in each nostril as directed azelastine 2023-0 Yes [id number] 1{spray Use 1 Univers 137 mcg 6-27 586932 } [place] in ity of (0.1 %) 00:00: each [place] nasal spray 00 nostril in Me dical the Branch morning and 1 [place] in the evening. Use in each nostril as directed azelastine 2023-0 Yes [id number] 1{spray Use 1 Univers 137 mcg 6-27 702960 } [place] in ity of (0.1 %) 00:00: each [place] nasal spray 00 nostril in Me dical the Branch morning and 1 [place] in the evening. Use in each nostril as directed azelastine 2023-0 Yes [id number] 1{spray Use 1 Univers 137 mcg 6-27 609008 } [place] in ity of (0.1 %) 00:00: each [place] nasal spray 00 nostril in Me dical the Branch morning and 1 [place] in the evening. Use in each nostril as directed azelastine 2023-0 Yes [id number] 1{spray Use 1 Univers 137 mcg 6-27 944151 } [place] in ity of (0.1 %) 00:00: each [place] nasal spray 00 nostril in Me dical the Branch morning and 1 [place] in the evening. Use in each nostril as directed azelastine 2023-0 Yes [id number] 1{spray Use 1 Univers 137 mcg 6-27 221652 } [place] in ity of (0.1 %) 00:00: each [place] nasal spray 00 nostril in Me dical the Branch morning and 1 [place] in the evening. Use in each nostril as directed azithromyci 2022-0 3- No [id number] Take two Univers n 03-02 [id number] on first ity of (ZITHROMAX 00:00: 00:00 day, take [place] Z-OK) 250 00 :00 one a day Medi shanice mg tablet afterwards Bran ch azithromyci 2022-0 2022- No [id number] Take two Univers n 6-06-10 [id number] on first ity of (ZITHROMAX 00:00: 00:00 day, take [place] Z-OK) 250 00 :00 one a day Medi shanice mg tablet afterwards Bran ch morpHINE (4 2022- No 4mg 4 mg, Slow Univers mg/mL) 01-21 IV Push, ity of injection 4 23:45: 23:08 ONCE, 1 [place] mg 00 :00 dose, On Medical [facility] Branch 01/21/23 at 1845, Routine ondansetron 2022- No 4mg 4 mg, Slow Univers (ZOFRAN 01-21 IV Push, ity of (PF)) 23:00: 23:08 ONCE, 1 [place] injection 4 00 :00 dose, On Medi shanice mg [facility] 01/21/23 at 1800, LUPE NaCl 0.9% 2022- No 1000mL at 999 Uni vers (NS) IV 01-21 mL/hr, ity of infusion 21:30: 23:45 Intravenou [place] 1,000 mL 00 :00 s, ONCE, 1 Medic al dose, On [facility] 01/21/23 at 1630, Routine FENTanyl PF 2022- No 50ug 50 mcg, Un [place] (SUBLIMAZE 01-21 Slow IV ity o f (PF)) 21:15: 20:56 Push, [place] injection 00 :00 ONCE, 1 Medical 50 mcg dose, On [facility] 01/21/23 at 1615, Routine iopamidol 2022- No [id number] 50mL 50 mL, Univers (ISOVUE 01-21 Intravenou ity o f 370-500 mL) 21:00: 21:02 s, ONCE, 1 [place] injection 00 :00 dose, On Medica l 50 mL [facility] 01/21/23 at 1600, Routine ondansetron 2022- No 4mg 4 mg, Slow Univers (ZOFRAN 01-21 IV Push, ity of (PF)) 20:30: 20:55 ONCE, 1 [place] injection 4 00 :00 dose, On Medi shanice mg [facility] 01/21/23 at 1530, LUPE sucralfate 2022- No [id number] 1g Take 1 Univers 1 gram 01-21 [...] shanice 1:1:1 Fri Branch ([facility] 01/15/23 at [facility]) 0600, oral Routine suspension 15 mL maalox:diph 2022-0 Yes [id number] 15mL Take 15 mL Univers enhydrAMINE 5-12 by mouth ity of :lidocaine 00:00: as needed [place] 2 % viscous 00 for Oral Medi shanice 1:1:1 mucositis Branch (EPIGASTRI C PAIN). ondansetron 2022-0 Yes [id number] 4mg Take 1 Univers (ZOFRAN) 4 5-12 tablet by ity of mg tablet 00:00: mouth [place] 00 every 8 Medical (eight) Branch hours as needed for Nausea and Vomiting (N/V). maalox:diph 2022-0 Yes [id number] 15mL Take 15 mL Univers enhydrAMINE 5-12 by mouth ity of :lidocaine 00:00: as needed [place] 2 % viscous 00 for Oral Medi shanice 1:1:1 mucositis Branch (EPIGASTRI C PAIN). ondansetron 2022-0 Yes [id number] 4mg Take 1 Univers (ZOFRAN) 4 5-12 tablet by ity of mg tablet 00:00: mouth [place] 00 every 8 Medical (eight) Branch hours as needed for Nausea and Vomiting (N/V). proMETHazin 2022-0 Yes [id number] 25mg Take 1 Univers e 25 mg 5-12 tablet by ity of tablet 00:00: mouth [place] 00 every 6 Medical (six) Branch hours as needed for Nausea and Vomiting (N/V). sucralfate 2022-0 Yes [id number] 1g Take 1 U nivers 1 gram 5-12 tablet by ity of tablet 00:00: mouth [place] 00 before Medical meals and Branch at bedtime. esomeprazol 2022-0 Yes [id number] 40mg Take 1 Univers e (NEXIUM) 5-12 capsule by ity of 40 mg 00:00: mouth [place] capsule 00 daily with Medica l breakfast. Branch maalox:diph 2022-0 Yes [id number] 15mL Take 15 mL Univers enhydrAMINE 5-12 by mouth ity of :lidocaine 00:00: as needed [place] 2 % viscous 00 for Oral Medi shanice 1:1:1 mucositis Branch (EPIGASTRI C PAIN). ondansetron 3-0 Yes [id number] 4mg Take 1 Univers (ZOFRAN) 4 5-12 tablet by ity of mg tablet 00:00: mouth [place] 00 every 8 Medical (eight) Branch hours as needed for Nausea and Vomiting (N/V). proMETHazin 3-0 Yes [id number] 25mg Take 1 Univers e 25 mg 5-12 tablet by ity of tablet 00:00: mouth [place] 00 every 6 Medical (six) Branch hours as needed for Nausea and Vomiting (N/V). sucralfate 3-0 Yes [id number] 1g Take 1 U nivers 1 gram 5-12 tablet by ity of tablet 00:00: mouth [place] 00 before Medical meals and Branch at bedtime. esomeprazol 3-0 Yes [id number] 40mg Take 1 Univers e (NEXIUM) 5-12 capsule by ity of 40 mg 00:00: mouth [place] capsule 00 daily with Medica l breakfast. Branch maalox:diph 2022-0 Yes [id number] 15mL Take 15 mL Univers enhydrAMINE 5-12 by mouth ity of :lidocaine 00:00: as needed [place] 2 % viscous 00 for Oral Medi shanice 1:1:1 mucositis Branch (EPIGASTRI C PAIN). proMETHazin 2022-0 Yes [id number] 25mg Take 1 Univers e 25 mg 5-12 tablet by ity of tablet 00:00: mouth [place] 00 every 6 Medical (six) Branch hours as needed for Nausea and Vomiting (N/V). sucralfate 3-0 Yes [id number] 1g Take 1 U nivers 1 gram 5-12 tablet by ity of tablet 00:00: mouth [place] 00 before Medical meals and Branch at bedtime. esomeprazol 2023-0 Yes [id number] 40mg Take 1 Univers e (NEXIUM) 5-12 capsule by ity of 40 mg 00:00: mouth [place] capsule 00 daily with Medica l breakfast. Branch maalox:diph 3-0 Yes [id number] 15mL Take 15 mL Univers enhydrAMINE 5-12 by mouth ity of :lidocaine 00:00: as needed [place] 2 % viscous 00 for Oral Medi shanice 1:1:1 mucositis Branch (EPIGASTRI C PAIN). proMETHazin 2023-0 Yes [id number] 25mg Take 1 Univers e 25 mg 5-12 tablet by ity of tablet 00:00: mouth [place] 00 every 6 Medical (six) Branch hours as needed for Nausea and Vomiting (N/V). sucralfate 2023-0 Yes [id number] 1g Take 1 U nivers 1 gram 5-12 tablet by ity of tablet 00:00: mouth [place] 00 before Medical meals and Branch at bedtime. esomeprazol 2023-0 Yes [id number] 40mg Take 1 Univers e (NEXIUM) 5-12 capsule by ity of 40 mg 00:00: mouth [place] capsule 00 daily with Medica l breakfast. Branch maalox:diph 2023-0 Yes [id number] 15mL Take 15 mL Univers enhydrAMINE 5-12 by mouth ity of :lidocaine 00:00: as needed [place] 2 % viscous 00 for Oral Medi shanice 1:1:1 mucositis Branch (EPIGASTRI C PAIN). proMETHazin 3-0 Yes [id number] 25mg Take 1 Univers e 25 mg 5-12 tablet by ity of tablet 00:00: mouth [place] 00 every 6 Medical (six) Branch hours as needed for Nausea and Vomiting (N/V). sucralfate 3-0 Yes [id number] 1g Take 1 U nivers 1 gram 5-12 tablet by ity of tablet 00:00: mouth [place] 00 before Medical meals and Branch at bedtime. esomeprazol 2023-0 Yes [id number] 40mg Take 1 Univers e (NEXIUM) 5-12 capsule by ity of 40 mg 00:00: mouth [place] capsule 00 daily with Medica l breakfast. Branch maalox:diph 2023-0 Yes [id number] 15mL Take 15 mL Univers enhydrAMINE 5-12 by mouth ity of :lidocaine 00:00: as needed [place] 2 % viscous 00 for Oral Medi shanice 1:1:1 mucositis Branch (EPIGASTRI C PAIN). proMETHazin 2023-0 Yes [id number] 25mg Take 1 Univers e 25 mg 5-12 tablet by ity of tablet 00:00: mouth [place] 00 every 6 Medical (six) Branch hours as needed for Nausea and Vomiting (N/V). sucralfate 2023-0 Yes [id number] 1g Take 1 U nivers 1 gram 5-12 tablet by ity of tablet 00:00: mouth [place] 00 before Medical meals and Branch at bedtime. esomeprazol 2023-0 Yes [id number] 40mg Take 1 Univers e (NEXIUM) 5-12 capsule by ity of 40 mg 00:00: mouth [place] capsule 00 daily with Medica l breakfast. Branch maalox:diph 3-0 Yes [id number] 15mL Take 15 mL Univers enhydrAMINE 5-12 by mouth ity of :lidocaine 00:00: as needed [place] 2 % viscous 00 for Oral Medi shanice 1:1:1 mucositis Branch (EPIGASTRI C PAIN). proMETHazin 3-0 Yes [id number] 25mg Take 1 Univers e 25 mg 5-12 tablet by ity of tablet 00:00: mouth [place] 00 every 6 Medical (six) Branch hours as needed for Nausea and Vomiting (N/V). sucralfate 3-0 Yes [id number] 1g Take 1 U nivers 1 gram 5-12 tablet by ity of tablet 00:00: mouth [place] 00 before Medical meals and Branch at bedtime. esomeprazol 3-0 Yes [id number] 40mg Take 1 Univers e (NEXIUM) 5-12 capsule by ity of 40 mg 00:00: mouth [place] capsule 00 daily with Medica l breakfast. Branch maalox:diph 3-0 Yes [id number] 15mL Take 15 mL Univers enhydrAMINE 5-12 by mouth ity of :lidocaine 00:00: as needed [place] 2 % viscous 00 for Oral Medi shanice 1:1:1 mucositis Branch (EPIGASTRI C PAIN). proMETHazin 2023-0 Yes [id number] 25mg Take 1 Univers e 25 mg 5-12 tablet by ity of tablet 00:00: mouth [place] 00 every 6 Medical (six) Branch hours as needed for Nausea and Vomiting (N/V). sucralfate 2023-0 Yes [id number] 1g Take 1 U nivers 1 gram 5-12 tablet by ity of tablet 00:00: mouth [place] 00 before Medical meals and Branch at bedtime. esomeprazol 2023-0 Yes [id number] 40mg Take 1 Univers e (NEXIUM) 5-12 capsule by ity of 40 mg 00:00: mouth [place] capsule 00 daily with Medica l breakfast. Branch maalox:diph 3-0 Yes [id number] 15mL Take 15 mL Univers enhydrAMINE 5-12 by mouth ity of :lidocaine 00:00: as needed [place] 2 % viscous 00 for Oral Medi shanice 1:1:1 mucositis Branch (EPIGASTRI C PAIN). proMETHazin 2022-0 Yes [id number] 25mg Take 1 Univers e 25 mg 5-12 tablet by ity of tablet 00:00: mouth [place] 00 every 6 Medical (six) Branch hours as needed for Nausea and Vomiting (N/V). sucralfate 3-0 Yes [id number] 1g Take 1 U nivers 1 gram 5-12 tablet by ity of tablet 00:00: mouth [place] 00 before Medical meals and Branch at bedtime. esomeprazol 2022-0 Yes [id number] 40mg Take 1 Univers e (NEXIUM) 5-12 capsule by ity of 40 mg 00:00: mouth [place] capsule 00 daily with Medica l breakfast. Branch maalox:diph 3-0 Yes [id number] 15mL Take 15 mL Univers enhydrAMINE 5-12 by mouth ity of :lidocaine 00:00: as needed [place] 2 % viscous 00 for Oral Medi shanice 1:1:1 mucositis Branch (EPIGASTRI C PAIN). proMETHazin 2022-0 Yes [id number] 25mg Take 1 Univers e 25 mg 5-12 tablet by ity of tablet 00:00: mouth [place] 00 every 6 Medical (six) Branch hours as needed for Nausea and Vomiting (N/V). sucralfate 2023-0 Yes [id number] 1g Take 1 U nivers 1 gram 5-12 tablet by ity of tablet 00:00: mouth [place] 00 before Medical meals and Branch at bedtime. esomeprazol 2023-0 Yes [id number] 40mg Take 1 Univers e (NEXIUM) 5-12 capsule by ity of 40 mg 00:00: mouth [place] capsule 00 daily with Medica l breakfast. Branch maalox:diph 3-0 Yes [id number] 15mL Take 15 mL Univers enhydrAMINE 5-12 by mouth ity of :lidocaine 00:00: as needed [place] 2 % viscous 00 for Oral Medi shanice 1:1:1 mucositis Branch (EPIGASTRI C PAIN). proMETHazin 2023-0 Yes [id number] 25mg Take 1 Univers e 25 mg 5-12 tablet by ity of tablet 00:00: mouth [place] 00 every 6 Medical (six) Branch hours as needed for Nausea and Vomiting (N/V). sucralfate 2023-0 Yes [id number] 1g Take 1 U nivers 1 gram 5-12 tablet by ity of tablet 00:00: mouth [place] 00 before Medical meals and Branch at bedtime. esomeprazol 2023-0 Yes [id number] 40mg Take 1 Univers e (NEXIUM) 5-12 capsule by ity of 40 mg 00:00: mouth [place] capsule 00 daily with Medica l breakfast. Branch maalox:diph 2023-0 Yes [id number] 15mL Take 15 mL [facility] enhydrAMINE 5-12 by mouth ity of :lidocaine 00:00: as needed [place] 2 % viscous 00 for Oral Medi shanice 1:1:1 mucositis Branch (EPIGASTRI C PAIN). proMETHazin 3-0 Yes [id number] 25mg Take 1 Univers e 25 mg 5-12 tablet by ity of tablet 00:00: mouth [place] 00 every 6 Medical (six) Branch hours as needed for Nausea and Vomiting (N/V). sucralfate 3-0 Yes [id number] 1g Take 1 U nivers 1 gram 5-12 tablet by ity of tablet 00:00: mouth [place] 00 before Medical meals and Branch at bedtime. esomeprazol 2023-0 Yes [id number] 40mg Take 1 [facility] e (NEXIUM) 5-12 capsule by ity of 40 mg 00:00: mouth [place] capsule 00 daily with Medica l breakfast. Branch maalox:diph 2023-0 Yes [id number] 15mL Take 15 mL [facility] enhydrAMINE 5-12 by mouth ity of :lidocaine 00:00: as needed [place] 2 % viscous 00 for Oral Medi shanice 1:1:1 mucositis Branch (EPIGASTRI C PAIN). proMETHazin 2023-0 Yes [id number] 25mg Take 1 [facility] e 25 mg 5-12 tablet by ity of tablet 00:00: mouth [place] 00 every 6 Medical (six) Branch hours as needed for Nausea and Vomiting (N/V). sucralfate 2023-0 Yes [id number] 1g Take 1 U nivers 1 gram 5-12 tablet by ity of tablet 00:00: mouth [place] 00 before Medical meals and Branch at bedtime. esomeprazol 2023-0 Yes [id number] 40mg Take 1 [facility] e (NEXIUM) 5-12 capsule by ity of 40 mg 00:00: mouth [place] capsule 00 daily with Medica l breakfast. Branch maalox:diph 2023-0 Yes [id number] 15mL Take 15 mL [facility] enhydrAMINE 5-12 by mouth ity of :lidocaine 00:00: as needed [place] 2 % viscous 00 for Oral Medi shanice 1:1:1 mucositis Branch (EPIGASTRI C PAIN). proMETHazin 2023-0 Yes [id number] 25mg Take 1 [facility] e 25 mg 5-12 tablet by ity of tablet 00:00: mouth [place] 00 every 6 Medical (six) Branch hours as needed for Nausea and Vomiting (N/V). sucralfate 2023-0 Yes [id number] 1g Take 1 U nivers 1 gram 5-12 tablet by ity of tablet 00:00: mouth [place] 00 before Medical meals and Branch at bedtime. esomeprazol 2023-0 Yes [id number] 40mg Take 1 [facility] e (NEXIUM) 5-12 capsule by ity of 40 mg 00:00: mouth [place] capsule 00 daily with Medica l breakfast. Branch maalox:diph 2023-0 Yes [id number] 15mL Take 15 mL [facility] enhydrAMINE 5-12 by mouth ity of :lidocaine 00:00: as needed [place] 2 % viscous 00 for Oral Medi shanice 1:1:1 mucositis Branch (EPIGASTRI C PAIN). proMETHazin 2023-0 Yes [id number] 25mg Take 1 [facility] 25 mg 5-12 tablet by ity of tablet 00:00: mouth [place] 00 every 6 Medical (six) Branch hours as needed for Nausea and Vomiting (N/V). sucralfate 2023-0 Yes [id number] 1g Take 1 U nivers 1 gram 5-12 tablet by ity of tablet 00:00: mouth [place] 00 before Medical meals and Branch at bedtime. esomeprazol 2023-0 Yes [id number] 40mg Take 1 [facility] (NEXIUM) 5-12 capsule by ity of 40 mg 00:00: mouth [place] capsule 00 daily with Medica l breakfast. Branch maalox:diph 3-0 Yes [id number] 15mL Take 15 mL [facility] enhydrAMINE 5-12 by mouth ity of :lidocaine 00:00: as needed [place] 2 % viscous 00 for Oral Medi shanice 1:1:1 mucositis Branch (EPIGASTRI C PAIN). proMETHazin 2023-0 Yes [id number] 25mg Take 1 [facility] 25 mg 5-12 tablet by ity of tablet 00:00: mouth [place] 00 every 6 Medical (six) Branch hours as needed for Nausea and Vomiting (N/V). sucralfate 2023-0 Yes [id number] 1g Take 1 U nivers 1 gram 5-12 tablet by ity of tablet 00:00: mouth [place] 00 before Medical meals and Branch at bedtime. esomeprazol 3-0 Yes [id number] 40mg Take 1 [facility] (NEXIUM) 5-12 capsule by ity of 40 mg 00:00: mouth [place] capsule 00 daily with Medica l breakfast. Branch maalox:diph 3-0 Yes [id number] 15mL Take 15 mL [facility] enhydrAMINE 5-12 by mouth ity of :lidocaine 00:00: as needed [place] 2 % viscous 00 for Oral Medi shanice 1:1:1 mucositis Branch (EPIGASTRI C PAIN). proMETHazin 2023-0 Yes [id number] 25mg Take 1 [facility] 25 mg 5-12 tablet by ity of tablet 00:00: mouth [place] 00 every 6 Medical (six) Branch hours as needed for Nausea and Vomiting (N/V). sucralfate 2023-0 Yes [id number] 1g Take 1 U nivers 1 gram 5-12 tablet by ity of tablet 00:00: mouth [place] 00 before Medical meals and Branch at bedtime. esomeprazol 2023-0 Yes [id number] 40mg Take 1 [facility] (NEXIUM) 5-12 capsule by ity of 40 mg 00:00: mouth [place] capsule 00 daily with Medica l breakfast. Branch maalox:diph 3-0 Yes [id number] 15mL Take 15 mL [facility] enhydrAMINE 5-12 by mouth ity of :lidocaine 00:00: as needed [place] 2 % viscous 00 for Oral Medi shanice 1:1:1 mucositis Branch (EPIGASTRI C PAIN). proMETHazin 2023-0 Yes [id number] 25mg Take 1 [facility] 25 mg 5-12 tablet by ity of tablet 00:00: mouth [place] 00 every 6 Medical (six) Branch hours as needed for Nausea and Vomiting (N/V). sucralfate 2023-0 Yes [id number] 1g Take 1 U nivers 1 gram 5-12 tablet by ity of tablet 00:00: mouth [place] 00 before Medical meals and Branch at bedtime. esomeprazol 3-0 Yes [id number] 40mg Take 1 [facility] (NEXIUM) 5-12 capsule by ity of 40 mg 00:00: mouth [place] capsule 00 daily with Medica l breakfast. Branch maalox:diph 2022-0 Yes [id number] 15mL Take 15 mL [facility] enhydrAMINE 5-12 by mouth ity of :lidocaine 00:00: as needed [place] 2 % viscous 00 for Oral Medi shanice 1:1:1 mucositis Branch (EPIGASTRI C PAIN). proMETHazin 3-0 Yes [id number] 25mg Take 1 [facility] 25 mg 5-12 tablet by ity of tablet 00:00: mouth [place] 00 every 6 Medical (six) Branch hours as needed for Nausea and Vomiting (N/V). sucralfate 3-0 Yes [id number] 1g Take 1 U nivers 1 gram 5-12 tablet by ity of tablet 00:00: mouth [place] 00 before Medical meals and Branch at bedtime. esomeprazol 2023-0 Yes [id number] 40mg Take 1 [facility] (NEXIUM) 5-12 capsule by ity of 40 mg 00:00: mouth [place] capsule 00 daily with Medica l breakfast. Branch maalox:diph 3-0 Yes [id number] 15mL Take 15 mL [facility] enhydrAMINE 5-12 by mouth ity of :lidocaine 00:00: as needed [place] 2 % viscous 00 for Oral Medi shanice 1:1:1 mucositis Branch (EPIGASTRI C PAIN). proMETHazin 2023-0 Yes [id number] 25mg Take 1 [facility] 25 mg 5-12 tablet by ity of tablet 00:00: mouth [place] 00 every 6 Medical (six) Branch hours as needed for Nausea and Vomiting (N/V). sucralfate 2023-0 Yes [id number] 1g Take 1 U nivers 1 gram 5-12 tablet by ity of tablet 00:00: mouth [place] 00 before Medical meals and Branch at bedtime. esomeprazol 2023-0 Yes [id number] 40mg Take 1 [facility] (NEXIUM) 5-12 capsule by ity of 40 mg 00:00: mouth [place] capsule 00 daily with Medica l breakfast. Branch maalox:diph 2023-0 Yes [id number] 15mL Take 15 mL [facility] enhydrAMINE 5-12 by mouth ity of :lidocaine 00:00: as needed [place] 2 % viscous 00 for Oral Medi shanice 1:1:1 mucositis Branch (EPIGASTRI C PAIN). proMETHazin 2023-0 Yes [id number] 25mg Take 1 [facility] 25 mg 5-12 tablet by ity of tablet 00:00: mouth [place] 00 every 6 Medical (six) Branch hours as needed for Nausea and Vomiting (N/V). sucralfate 2023-0 Yes [id number] 1g Take 1 U nivers 1 gram 5-12 tablet by ity of tablet 00:00: mouth [place] 00 before Medical meals and Branch at bedtime. esomeprazol 2023-0 Yes [id number] 40mg Take 1 [facility] (NEXIUM) 5-12 capsule by ity of 40 mg 00:00: mouth [place] capsule 00 daily with Medica l breakfast. Branch maalox:diph 2023-0 Yes [id number] 15mL Take 15 mL [facility] enhydrAMINE 5-12 by mouth ity of :lidocaine 00:00: as needed [place] 2 % viscous 00 for Oral Medi shanice 1:1:1 mucositis Branch (EPIGASTRI C PAIN). proMETHazin 2023-0 Yes [id number] 25mg Take 1 [facility] 25 mg 5-12 tablet by ity of tablet 00:00: mouth [place] 00 every 6 Medical (six) Branch hours as needed for Nausea and Vomiting (N/V). sucralfate 2023-0 Yes [id number] 1g Take 1 U nivers 1 gram 5-12 tablet by ity of tablet 00:00: mouth [place] 00 before Medical meals and Branch at bedtime. esomeprazol 2023-0 Yes [id number] 40mg Take 1 [facility] (NEXIUM) 5-12 capsule by ity of 40 mg 00:00: mouth [place] capsule 00 daily with Medica l breakfast. Branch maalox:diph 3-0 Yes [id number] 15mL Take 15 mL [facility] enhydrAMINE 5-12 by mouth ity of :lidocaine 00:00: as needed [place] 2 % viscous 00 for Oral Medi shanice 1:1:1 mucositis Branch (EPIGASTRI C PAIN). proMETHazin 3-0 Yes [id number] 25mg Take 1 [facility] 25 mg 5-12 tablet by ity of tablet 00:00: mouth [place] 00 every 6 Medical (six) Branch hours as needed for Nausea and Vomiting (N/V). sucralfate 3-0 Yes [id number] 1g Take 1 U nivers 1 gram 5-12 tablet by ity of tablet 00:00: mouth [place] 00 before Medical meals and Branch at bedtime. esomeprazol 3-0 Yes [id number] 40mg Take 1 [facility] (NEXIUM) 5-12 capsule by ity of 40 mg 00:00: mouth [place] capsule 00 daily with Medica l breakfast. Branch maalox:diph 3-0 Yes [id number] 15mL Take 15 mL [facility] enhydrAMINE 5-12 by mouth ity of :lidocaine 00:00: as needed [place] 2 % viscous 00 for Oral Medi shanice 1:1:1 mucositis Branch (EPIGASTRI C PAIN). proMETHazin 2023-0 Yes [id number] 25mg Take 1 [facility] 25 mg 5-12 tablet by ity of tablet 00:00: mouth [place] 00 every 6 Medical (six) Branch hours as needed for Nausea and Vomiting (N/V). sucralfate 2023-0 Yes [id number] 1g Take 1 U nivers 1 gram 5-12 tablet by ity of tablet 00:00: mouth [place] 00 before Medical meals and Branch at bedtime. esomeprazol 2023-0 Yes [id number] 40mg Take 1 [facility] (NEXIUM) 5-12 capsule by ity of 40 mg 00:00: mouth [place] capsule 00 daily with Medica l breakfast. Branch ondansetron 2022- No [id number] 4mg Take 1 [facility] (ZOFRAN) 4 01-15- tablet by ity of mg tablet 00:00: 00:00 mouth [place] 00 :00 every 8 Medical (eight) Branch hours as needed for Nausea and Vomiting (N/V). proMETHazin 2022- No [id number] 25mg Take 1 [facility] e 25 mg -08 10-12 tablet by ity of tablet 00:00: 00:00 mouth [place] 00 :00 every 6 Medical (six) Branch hours as needed for Nausea and Vomiting (N/V). sucralfate 2022- No [id number] 1g Take 1 [facility] 1 gram 01-15-12 tablet by ity of tablet 00:00: 00:00 mouth [place] 00 :00 before Medical meals and Branch at bedtime. esomeprazol 2022- No [id number] 40mg Take 1 [facility] e (NEXIUM) 01-15-12 [...] 0145, 15 mL Routine iopamidol 2022- No [id number] 70mL 70 mL, Univers (ISOVUE 12-30 Intravenou ity o f 370-500 mL) 17:30: 17:25 s, ONCE, 1 [place] injection 00 :00 dose, On Medica l 70 mL Wed Branch 12/30/22 at 1230, Routine nitroglycer 2022- No [id number] .8mg 0.8 mg, [facility] in 12-30 Sublingual ity of (NITROSTAT) 17:15: 17:15 , ONCE, 1 [place] sublingual 00 :00 dose, On Medic al tablet 0.8 Wed [place] mg 12/30/22 at 1215, Routine metoprolol 2022- No [id number] 100mg 100 mg, [facility] tartrate 12-30 Oral, ity of (LOPRESSOR) 16:15: 16:41 ONCE, 1 [place] tablet 100 00 :00 dose, On Medic al mg Wed12/30/22 at 1141, Routine valACYclovi Yes [id number] 1g Take 1 [facility] r 1 gram 4-21 tablet by ity of tablet 00:00: mouth in [address] and 1 tablet at noon and 1 tablet in the evening. valACYclovi Yes [id number] 1g Take 1 [facility] r 1 gram 4-21 tablet by ity of tablet 00:00: mouth in [address] and 1 tablet at noon and 1 tablet in the evening. valACYclovi Yes [id number] 1g Take 1 [facility] r 1 gram 4-21 tablet by ity of tablet 00:00: mouth in [address] and 1 tablet at noon and 1 tablet in the evening. valACYclovi Yes [id number] 1g Take 1 [facility] r 1 gram 4-21 tablet by ity of tablet 00:00: mouth in [address] and 1 tablet at noon and 1 tablet in the evening. valACYclovi 0 Yes [id number] 1g Take 1 [facility] r 1 gram 4-21 tablet by ity of tablet 00:00: mouth in [address] and 1 tablet at noon and 1 tablet in the evening. valACYclovi 0 Yes [id number] 1g Take 1 [facility] r 1 gram 4-21 tablet by ity of tablet 00:00: mouth in [address] and 1 tablet at noon and 1 tablet in the evening. valACYclovi Yes [id number] 1g Take 1 [facility] r 1 gram 4-21 tablet by ity of tablet 00:00: mouth in [address] and 1 tablet at noon and 1 tablet in the evening. valACYclovi 2023-0 Yes [id number] 1g Take 1 [facility] r 1 gram 4-21 tablet by ity of tablet 00:00: mouth in [place] 00 the Medical morning Branch and 1 tablet at noon and 1 tablet in the evening. valACYclovi 2022-0 Yes [id number] 1g Take 1 [facility] r 1 gram 4-21 tablet by ity of tablet 00:00: mouth in [place] 00 the Medical morning Branch and 1 tablet at noon and 1 tablet in the evening. valACYclovi 2022-0 Yes [id number] 1g Take 1 [facility] r 1 gram 4-21 tablet by ity of tablet 00:00: mouth in [place] 00 the Medical morning Branch and 1 tablet at noon and 1 tablet in the evening. valACYclovi 2022-0 Yes [id number] 1g Take 1 [facility] r 1 gram 4-21 tablet by ity of tablet 00:00: mouth in [place] 00 the Medical morning Branch and 1 tablet at noon and 1 tablet in the evening. valACYclovi 2022- Yes [id number] 1g Take 1 [facility] r 1 gram 4-21 tablet by ity of tablet 00:00: mouth in [place] 00 the Medical morning Branch and 1 tablet at noon and 1 tablet in the evening. valACYclovi 2022-0 Yes [id number] 1g Take 1 [facility] r 1 gram 4-21 tablet by ity of tablet 00:00: mouth in [place] 00 the Medical morning Branch and 1 tablet at noon and 1 tablet in the evening. valACYclovi Yes [id number] 1g Take 1 [facility] r 1 gram 4-21 tablet by ity of tablet 00:00: mouth in [place] 00 the Medical morning Branch and 1 tablet at noon and 1 tablet in the evening. valACYclovi 0 2022- No [id number] 1g Take 1 [facility] r 1 gram 4-21 05-12 tablet by ity o f tablet 00:00: 00:00 mouth in [place] 00 :00 the Medical morning Branch and 1 tablet at noon and 1 tablet in the evening. valACYclovi 2022- No [id number] 1g Take 1 [facility] r 1 gram 4-21 04-29 tablet by ity o f tablet 00:00: 04:59 mouth in [place] 00 :00 the Medical morning Branch and 1 tablet at noon and 1 tablet in the evening. Do all this for 7 days. valACYclovi 0 2022- No [id number] 1g Take 1 [facility] r 1 gram 4-21 04-21 tablet by ity o f tablet 00:00: 00:00 mouth in [place] 00 :00 the Medical morning Branch and 1 tablet at noon and 1 tablet in the evening. Do all this for 7 days. levETIRAcet Yes TWICE Un[facility] rs am 500 mg 4-18 DAILY. ity of tablet 09:12: [address] gabapentin 2022-0 Yes gabapentin U nivers 300 mg 4-18 300 mg ity of capsule 09:12: capsule [address] famotidine 0 Yes famotidine U nivers 20 mg 4-18 20 mg ity of tablet 09:12: tablet [address] clonazePAM 2022- Yes clonazepam U nivers 0.5 mg 4-18 0.5 mg ity of tablet 09:12: tablet [place] [address] TAKE 1 Medical TABLET BY Branch MOUTH EVERY DAY AT BEDTIME NEEDED FOR SEVERE ANXIETY/PA STACEY ATTACK buPROPion Yes 300mg Take 1 Unive rs XL 300 mg 4-18 tablet by ity o f 24 hr 09:12: mouth. [address] buprenorphi Yes [place] [facility] vers ne [...] mg 4-18 DAILY. ity of tablet 09:12: [address] gabapentin 2022-0 Yes gabapentin U nivers 300 mg 4-18 300 mg ity of capsule 09:12: capsule [address] famotidine 0 Yes famotidine U nivers 20 mg 4-18 20 mg ity of tablet 09:12: tablet [address] clonazePAM 0 Yes clonazepam U nivers 0.5 mg 4-18 0.5 mg ity of tablet 09:12: tablet [place] 14 TAKE 1 Medical TABLET BY Branch MOUTH EVERY DAY AT BEDTIME NEEDED FOR SEVERE ANXIETY/PA STACEY ATTACK buPROPion 0 Yes 300mg Take 1 Un[facility] rs XL 300 mg 4-18 tablet by ity o f 24 hr 09:12: mouth. [place] tablet [address] [place] [address] buprenorphi Yes [place] [facility] ne HCL [...] [place] [facility] [facility] aerosol inhaler levETIRAcet Yes TWICE Unive rs am 500 mg 4-18 DAILY. ity of tablet 09:12: [address] gabapentin Yes gabapentin U nivers 300 mg 4-18 300 mg ity of capsule 09:12: capsule [address] famotidine Yes famotidine U nivers 20 mg 4-18 20 mg ity of tablet 09:12: tablet [address] clonazePAM 2022-0 Yes clonazepam U nivers 0.5 mg 4-18 0.5 mg ity of tablet 09:12: tablet [place] 14 TAKE 1 Medical TABLET BY Branch MOUTH EVERY DAY AT BEDTIME NEEDED FOR SEVERE ANXIETY/PA STACEY ATTACK buPROPion 2022-0 Yes 300mg Take 1 Unive rs XL 300 mg 4-18 tablet by ity o f 24 hr 09:12: mouth. [place] tablet 14 [facility] buprenorphi Yes [place] [facility] vers ne [...] mg 4-18 DAILY. ity of tablet 09:12: [address] gabapentin Yes gabapentin U nivers 300 mg 4-18 300 mg ity of capsule 09:12: capsule [address] famotidine Yes famotidine U nivers 20 mg 4-18 20 mg ity of tablet 09:12: tablet [address] clonazePAM 0 Yes clonazepam U nivers 0.5 mg 4-18 0.5 mg ity of tablet 09:12: tablet [place] [address] TAKE 1 Medical TABLET BY Branch MOUTH EVERY DAY AT BEDTIME NEEDED FOR SEVERE ANXIETY/PA STACEY ATTACK buPROPion 0 Yes 300mg Take 1 Unive rs XL 300 mg 4-18 tablet by ity o f 24 hr 09:12: mouth. [place] tablet [address] [place] [address] buprenorphi Yes [place] [facility] vers ne HCL [...] mg 4-18 DAILY. ity of tablet 09:12: [address] gabapentin 0 Yes gabapentin U nivers 300 mg 4-18 300 mg ity of capsule 09:12: capsule [address] famotidine 2022-0 Yes famotidine U nivers 20 mg 4-18 20 mg ity of tablet 09:12: tablet [address] clonazePAM 2022-0 Yes clonazepam U nivers 0.5 mg 4-18 0.5 mg ity of tablet 09:12: tablet [place] 14 TAKE 1 Medical TABLET BY Branch MOUTH EVERY DAY AT BEDTIME NEEDED FOR SEVERE ANXIETY/PA STACEY ATTACK buPROPion 2022-0 Yes 300mg Take 1 Unive rs XL 300 mg 4-18 tablet by ity o f 24 hr 09:12: mouth. [facility] [place] 14 [facility] buprenorphi Yes [place] [facility] vers ne [...] mg 4-18 DAILY. ity of tablet 09:12: [address] gabapentin 2022-0 Yes gabapentin U nivers 300 mg 4-18 300 mg ity of capsule 09:12: capsule [address] famotidine 2022-0 Yes famotidine U nivers 20 mg 4-18 20 mg ity of tablet 09:12: tablet [address] clonazePAM 2022-0 Yes clonazepam U nivers 0.5 mg 4-18 0.5 mg ity of tablet 09:12: tablet [place] 14 TAKE 1 Medical TABLET BY Branch MOUTH EVERY DAY AT BEDTIME NEEDED FOR SEVERE ANXIETY/PA STACEY ATTACK buPROPion Yes 300mg Take 1 Unive rs XL 300 mg 4-18 tablet by ity o f 24 hr 09:12: mouth. [place] tablet 14 [facility] buprenorphi Yes [place] [facility] vers ne [...] mg 4-18 DAILY. ity of tablet 09:12: [address] gabapentin Yes gabapentin U nivers 300 mg 4-18 300 mg ity of capsule 09:12: capsule [address] famotidine 0 Yes famotidine U nivers 20 mg 4-18 20 mg ity of tablet 09:12: tablet [address] clonazePAM 0 Yes clonazepam U nivers 0.5 mg 4-18 0.5 mg ity of tablet 09:12: tablet [place] [address] TAKE 1 Medical TABLET BY Branch MOUTH EVERY DAY AT BEDTIME NEEDED FOR SEVERE ANXIETY/PA STACEY ATTACK buPROPion 0 Yes 300mg Take 1 Unive rs XL 300 mg 4-18 tablet by ity o f 24 hr 09:12: mouth. [place] tablet 14 [facility] buprenorphi Yes [place] [facility] vers ne [...] mg 4-18 DAILY. ity of tablet 09:12: [address] gabapentin Yes gabapentin U nivers 300 mg 4-18 300 mg ity of capsule 09:12: capsule [address] famotidine Yes famotidine U nivers 20 mg 4-18 20 mg ity of tablet 09:12: tablet [address] clonazePAM Yes clonazepam U nivers 0.5 mg 4-18 0.5 mg ity of tablet 09:12: tablet [place] [address] TAKE 1 Medical TABLET BY Branch MOUTH EVERY DAY AT BEDTIME NEEDED FOR SEVERE ANXIETY/PA STACEY ATTACK buPROPion Yes 300mg Take 1 Unive rs XL 300 mg 4-18 tablet by ity o f 24 hr 09:12: mouth. [address] buprenorphi Yes [place] [facility] vers ne [...] mg 4-18 DAILY. ity of tablet 09:12: [address] gabapentin Yes gabapentin U nivers 300 mg 4-18 300 mg ity of capsule 09:12: capsule [address] famotidine 2022-0 Yes famotidine U nivers 20 mg 4-18 20 mg ity of tablet 09:12: tablet [address] clonazePAM 2022-0 Yes clonazepam U nivers 0.5 mg 4-18 0.5 mg ity of tablet 09:12: tablet [place] 14 TAKE 1 Medical TABLET BY Branch MOUTH EVERY DAY AT BEDTIME NEEDED FOR SEVERE ANXIETY/PA STACEY ATTACK buPROPion 0 Yes 300mg Take 1 Unive rs XL 300 mg 4-18 tablet by ity o f 24 hr 09:12: mouth. [place] tablet 14 [facility] buprenorphi Yes [place] [facility] vers ne [...] mg 4-18 DAILY. ity of tablet 09:12: [address] gabapentin 2022-0 Yes gabapentin U nivers 300 mg 4-18 300 mg ity of capsule 09:12: capsule [address] famotidine 2022-0 Yes famotidine U nivers 20 mg 4-18 20 mg ity of tablet 09:12: tablet [address] clonazePAM 2022-0 Yes clonazepam U nivers 0.5 mg 4-18 0.5 mg ity of tablet 09:12: tablet [place] [address] TAKE 1 Medical TABLET BY Branch MOUTH EVERY DAY AT BEDTIME NEEDED FOR SEVERE ANXIETY/PA STACEY ATTACK buPROPion 2022-0 Yes 300mg Take 1 Unive rs XL 300 mg 4-18 tablet by ity o f 24 hr 09:12: mouth. [place] tablet [address] [place] [address] buprenorphi Yes [place] [facility] vers ne HCL [...] mg 4-18 DAILY. ity of tablet 09:12: [address] gabapentin Yes gabapentin U nivers 300 mg 4-18 300 mg ity of capsule 09:12: capsule [address] famotidine Yes famotidine U nivers 20 mg 4-18 20 mg ity of tablet 09:12: tablet [address] clonazePAM Yes clonazepam U nivers 0.5 mg 4-18 0.5 mg ity of tablet 09:12: tablet [place] [address] TAKE 1 Medical TABLET BY Branch MOUTH EVERY DAY AT BEDTIME NEEDED FOR SEVERE ANXIETY/PA STACEY ATTACK buPROPion Yes 300mg Take 1 Unive rs XL 300 mg 4-18 tablet by ity o f 24 hr 09:12: mouth. [place] tablet [address] [place] [address] buprenorphi Yes [place] [facility] vers ne HCL [...] mg 4-18 DAILY. ity of tablet 09:12: [address] gabapentin 2022-0 Yes gabapentin U nivers 300 mg 4-18 300 mg ity of capsule 09:12: capsule [address] famotidine 2022-0 Yes famotidine U nivers 20 mg 4-18 20 mg ity of tablet 09:12: tablet [address] clonazePAM 2022-0 Yes clonazepam U nivers 0.5 mg 4-18 0.5 mg ity of tablet 09:12: tablet [place] [address] TAKE 1 Medical TABLET BY Branch MOUTH EVERY DAY AT BEDTIME NEEDED FOR SEVERE ANXIETY/PA STACYE ATTACK buPROPion 0 Yes 300mg Take 1 Unive rs XL 300 mg 4-18 tablet by ity o f 24 hr 09:12: mouth. [address] buprenorphi Yes [place] [facility] vers ne [...] mg 4-18 DAILY. ity of tablet 09:12: [address] gabapentin Yes gabapentin U nivers 300 mg 4-18 300 mg ity of capsule 09:12: capsule [address] famotidine 2022-0 Yes famotidine U nivers 20 mg 4-18 20 mg ity of tablet 09:12: tablet [address] clonazePAM 2022-0 Yes clonazepam U nivers 0.5 mg 4-18 0.5 mg ity of tablet 09:12: tablet [place] 14 TAKE 1 Medical TABLET BY Branch [...] mg 4-18 DAILY. ity of tablet 09:12: [address] gabapentin Yes gabapentin U nivers 300 mg 4-18 300 mg ity of capsule 09:12: capsule [address] famotidine Yes famotidine U nivers 20 mg 4-18 20 mg ity of tablet 09:12: tablet [address] clonazePAM Yes clonazepam U nivers 0.5 mg 4-18 0.5 mg ity of tablet 09:12: tablet [place] [address] TAKE 1 Medical TABLET BY Branch MOUTH [...] mg 4-18 DAILY. ity of tablet 09:12: [address] gabapentin 0 Yes gabapentin U nivers 300 mg 4-18 300 mg ity of capsule 09:12: capsule [address] famotidine 2022-0 Yes famotidine U nivers 20 mg 4-18 20 mg ity of tablet 09:12: tablet [address] clonazePAM 2022-0 Yes clonazepam U nivers 0.5 mg 4-18 0.5 mg ity of tablet 09:12: tablet [place] [address] TAKE 1 Medical TABLET BY Branch MOUTH [...] mg 4-18 DAILY. ity of tablet 09:12: [address] gabapentin Yes gabapentin U nivers 300 mg 4-18 300 mg ity of capsule 09:12: capsule [address] famotidine 2022-0 Yes famotidine U nivers 20 mg 4-18 20 mg ity of tablet 09:12: tablet [address] clonazePAM 2022-0 Yes clonazepam U nivers 0.5 mg 4-18 0.5 mg ity of tablet 09:12: tablet [place] [address] TAKE 1 Medical TABLET BY Branch MOUTH [...] mg 4-18 DAILY. ity of tablet 09:12: [address] gabapentin Yes gabapentin U nivers 300 mg 4-18 300 mg ity of capsule 09:12: capsule [address] famotidine Yes famotidine U nivers 20 mg 4-18 20 mg ity of tablet 09:12: tablet [address] clonazePAM Yes clonazepam U nivers 0.5 mg 4-18 0.5 mg ity of tablet 09:12: tablet [place] [address] TAKE 1 Medical TABLET BY Branch MOUTH [...] mg 4-18 DAILY. ity of tablet 09:12: [address] gabapentin 2022-0 Yes gabapentin U nivers 300 mg 4-18 300 mg ity of capsule 09:12: capsule [address] famotidine 2022-0 Yes famotidine U nivers 20 mg 4-18 20 mg ity of tablet 09:12: tablet [address] clonazePAM 2022-0 Yes clonazepam U nivers 0.5 mg 4-18 0.5 mg ity of tablet 09:12: tablet [place] 14 TAKE 1 Medical TABLET BY Branch [...] mg 4-18 DAILY. ity of tablet 09:12: [address] gabapentin 2022-0 Yes gabapentin U nivers 300 mg 4-18 300 mg ity of capsule 09:12: capsule [address] famotidine 2022-0 Yes famotidine U nivers 20 mg 4-18 20 mg ity of tablet 09:12: tablet [address] clonazePAM 2022-0 Yes clonazepam U nivers 0.5 mg 4-18 0.5 mg ity of tablet 09:12: tablet [place] [address] TAKE 1 Medical TABLET BY Branch MOUTH [...] mg 4-18 DAILY. ity of tablet 09:12: [address] gabapentin Yes gabapentin U nivers 300 mg 4-18 300 mg ity of capsule 09:12: capsule [address] famotidine Yes famotidine U nivers 20 mg 4-18 20 mg ity of tablet 09:12: tablet [address] clonazePAM Yes clonazepam U nivers 0.5 mg 4-18 0.5 mg ity of tablet 09:12: tablet [place] [address] TAKE 1 Medical TABLET BY Branch MOUTH [...] mg 4-18 DAILY. ity of tablet 09:12: [address] gabapentin Yes gabapentin U nivers 300 mg 4-18 300 mg ity of capsule 09:12: capsule [address] famotidine 0 Yes famotidine U nivers 20 mg 4-18 20 mg ity of tablet 09:12: tablet [address] clonazePAM 0 Yes clonazepam U nivers 0.5 mg 4-18 0.5 mg ity of tablet 09:12: tablet [place] 14 TAKE 1 Medical TABLET BY Branch [...] mg 4-18 DAILY. ity of tablet 09:12: [address] gabapentin 0 Yes gabapentin U nivers 300 mg 4-18 300 mg ity of capsule 09:12: capsule [address] famotidine 0 Yes famotidine U nivers 20 mg 4-18 20 mg ity of tablet 09:12: tablet [address] clonazePAM 0 Yes clonazepam U nivers 0.5 mg 4-18 0.5 mg ity of tablet 09:12: tablet [place] 14 TAKE 1 Medical TABLET BY Branch [...] mg 4-18 DAILY. ity of tablet 09:12: [address] gabapentin Yes gabapentin U n[facility] 300 mg 4-18 300 mg ity of capsule 09:12: capsule [address] famotidine Yes famotidine U nivers 20 mg 4-18 20 mg ity of tablet 09:12: tablet [address] clonazePAM Yes clonazepam U nivers 0.5 mg 4-18 0.5 mg ity of tablet 09:12: tablet [place] [address] TAKE 1 Medical TABLET BY Branch MOUTH [...] mg 4-18 DAILY. ity of tablet 09:12: [address] gabapentin 0 Yes gabapentin U nivers 300 mg 4-18 300 mg ity of capsule 09:12: capsule [address] famotidine 0 Yes famotidine U nivers 20 mg 4-18 20 mg ity of tablet 09:12: tablet [address] clonazePAM 2022-0 Yes clonazepam U nivers 0.5 mg 4-18 0.5 mg ity of tablet 09:12: tablet [place] 14 TAKE 1 Medical TABLET BY Branch [...] mg 4-18 DAILY. ity of tablet 09:12: [address] gabapentin 0 Yes gabapentin U nivers 300 mg 4-18 300 mg ity of capsule 09:12: capsule [address] famotidine 2022-0 Yes famotidine U nivers 20 mg 4-18 20 mg ity of tablet 09:12: tablet [address] clonazePAM 2022-0 Yes clonazepam U nivers 0.5 mg 4-18 0.5 mg ity of tablet 09:12: tablet [place] 14 TAKE 1 Medical TABLET BY Branch [...] 12/19/22 at 0530, Routine iopamidol 2022- No [id number] 99mL 99 mL, U nivers (ISOVUE 12-19 [...] 800 mg ity of tablet 10:43: tablet [place] [address] Medical Branch adalimumab 3-0 Yes 40mg inject [...] 800 mg ity of tablet 10:43: tablet [place] [address] Medical Branch adalimumab 3-0 Yes 40mg inject 1 Uni vers (HUMIRA) 40 4-11 Syringe ity o f mg/0.8 mL 10:43: under the [place] as injection 17 skin. Medical Branch ibuprofen 2022-0 Yes ibuprofen Uni vers 800 mg 4-11 800 mg ity of tablet 10:43: tablet [address] Branch adalimumab 3-0 Yes 40mg inject 1 Uni vers (HUMIRA) 40 4-11 Syringe ity o f mg/0.8 mL 10:43: under the [place] as injection 17 skin. Medical Branch ibuprofen 2022-0 Yes ibuprofen Uni vers 800 mg 4-11 800 mg ity of tablet 10:43: tablet [address] pregabalin 3-0 Yes 150mg Take 1 Univ ers 150 mg 3-30 capsule by ity of capsule 00:00: mouth in [place] the Medical morning Branch and 1 capsule in the evening. meloxicam 3-0 Yes [facility] 15 mg 3-30 ity of tablet 00:00: [place] 00 Medical Branch HYDROcodone 3-0 Yes 1{tbl} Take 1 Un travis -acetaminop 3-30 tablet by ity of hen 5-325 00:00: mouth 4 [place] mg tablet 00 (four) Medical times Branch daily. pregabalin 2023-0 Yes 150mg Take 1 Univ ers 150 mg 3-30 capsule by ity of capsule 00:00: mouth in [place] 00 the Medical morning Branch and 1 capsule in the evening. meloxicam 2023-0 Yes Univers 15 mg 3-30 ity of tablet 00:00: [place] [facility] Branch HYDROcodone 2023-0 Yes 1{tbl} Take 1 Un travis -acetaminop 3-30 tablet by ity of hen 5-325 00:00: mouth 4 [place] mg tablet ([facility]) [facility] times [place] daily. pregabalin 2023-0 Yes 150mg Take 1 Univ ers 150 mg 3-30 capsule by ity of capsule 00:00: mouth in [place] the Medical morning Branch and 1 capsule in the evening. meloxicam 2023-0 Yes Univers 15 mg 3-30 ity of tablet 00:00: [place] [facility] Branch HYDROcodone 2023-0 Yes 1{tbl} Take 1 Un travis -acetaminop 3-30 tablet by ity of hen 5-325 00:00: mouth 4 [place] mg tablet ([facility]) [facility] daily. pregabalin 2023-0 Yes 150mg Take 1 Univ ers 150 mg 3-30 capsule by ity of capsule 00:00: mouth in [place] the [facility] morning Branch and 1 capsule in the evening. meloxicam 2023-0 Yes Univers 15 mg 3-30 ity of tablet 00:00: [place] [facility] Branch HYDROcodone 2023-0 Yes 1{tbl} Take 1 Un travis -acetaminop 3-30 tablet by ity of hen 5-325 00:00: mouth 4 [place] mg tablet ([facility]) [facility] daily. pregabalin 2023-0 Yes 150mg Take 1 Univ ers 150 mg 3-30 capsule by ity of capsule 00:00: mouth in [place] the [facility] morning Branch and 1 capsule in the evening. meloxicam 2023-0 Yes Univers 15 mg 3-30 ity of tablet 00:00: [place] [facility] Branch HYDROcodone 2023-0 Yes 1{tbl} Take 1 Un travis -acetaminop 3-30 tablet by ity of hen 5-325 00:00: mouth 4 [place] mg tablet ([facility]) [facility] times [place] daily. pregabalin 2023-0 Yes 150mg Take 1 Univ ers 150 mg 3-30 capsule by ity of capsule 00:00: mouth in [place] the [facility] morning Branch and 1 capsule in the evening. meloxicam 2023-0 Yes Univers 15 mg 3-30 ity of tablet 00:00: [place] [facility] Branch HYDROcodone 2023-0 Yes 1{tbl} Take 1 Un travis -acetaminop 3-30 tablet by ity of hen 5-325 00:00: mouth 4 [place] mg tablet 00 (four) Medical times [place] daily. pregabalin 2023-0 Yes 150mg Take 1 Univ ers 150 mg 3-30 capsule by ity of capsule 00:00: mouth in [place] the Medical morning Branch and 1 capsule in the evening. meloxicam 2023-0 Yes [facility] 15 mg 3-30 ity of tablet 00:00: [place] [facility] Branch HYDROcodone 2023-0 Yes 1{tbl} Take 1 Un travis -acetaminop 3-30 tablet by ity of hen 5-325 00:00: mouth 4 [place] mg tablet 00 ([facility]) Medical times [place] daily. pregabalin 2023-0 Yes 150mg Take 1 Univ ers 150 mg 3-30 capsule by ity of capsule 00:00: mouth in [place] the Medical morning Branch and 1 capsule in the evening. meloxicam 2023-0 Yes [facility] 15 mg 3-30 ity of tablet 00:00: [place] [facility] Branch HYDROcodone 2023-0 Yes 1{tbl} Take 1 Un travis -acetaminop 3-30 tablet by ity of hen 5-325 00:00: mouth 4 [place] mg tablet ([facility]) [facility] times [place] daily. pregabalin 2023-0 Yes 150mg Take 1 Univ ers 150 mg 3-30 capsule by ity of capsule 00:00: mouth in [place] the Medical morning Branch and 1 capsule in the evening. meloxicam 2023-0 Yes Univers 15 mg 3-30 ity of tablet 00:00: [place] [facility] Branch HYDROcodone 2023-0 Yes 1{tbl} Take 1 Un travis -acetaminop 3-30 tablet by ity of hen 5-325 00:00: mouth 4 [place] mg tablet 00 ([facility]) Medical times [place] daily. pregabalin 2023-0 Yes 150mg Take 1 Univ ers 150 mg 3-30 capsule by ity of capsule 00:00: mouth in [place] the Medical morning Branch and 1 capsule in the evening. meloxicam 2023-0 Yes [facility] 15 mg 3-30 ity of tablet 00:00: [place] [facility] Branch HYDROcodone 2023-0 Yes 1{tbl} Take 1 Un travis -acetaminop 3-30 tablet by ity of hen 5-325 00:00: mouth 4 [place] mg tablet 00 ([facility]) Medical times [place] daily. pregabalin 2023-0 Yes 150mg Take 1 Univ ers 150 mg 3-30 capsule by ity of capsule 00:00: mouth in [place] the Medical morning Branch and 1 capsule in the evening. meloxicam 2023-0 Yes Univers 15 mg 3-30 ity of tablet 00:00: [place] 00 [facility] Branch HYDROcodone 2023-0 Yes 1{tbl} Take 1 Un travis -acetaminop 3-30 tablet by ity of hen 5-325 00:00: mouth 4 [place] mg tablet 00 (four) Medical times [place] daily. pregabalin 2023-0 Yes 150mg Take 1 Univ ers 150 mg 3-30 capsule by ity of capsule 00:00: mouth in [place] the Medical morning Branch and 1 capsule in the evening. meloxicam 2023-0 Yes Univers 15 mg 3-30 ity of tablet 00:00: [place] [facility] Branch HYDROcodone 2023-0 Yes 1{tbl} Take 1 Un travis -acetaminop 3-30 tablet by ity of hen 5-325 00:00: mouth 4 [place] mg tablet 00 ([facility]) [facility] times [place] daily. pregabalin 2023-0 Yes 150mg Take 1 Univ ers 150 mg 3-30 capsule by ity of capsule 00:00: mouth in [place] the Medical morning Branch and 1 capsule in the evening. meloxicam 2023-0 Yes Univers 15 mg 3-30 ity of tablet 00:00: [place] [facility] Branch HYDROcodone 2023-0 Yes 1{tbl} Take 1 Un travis -acetaminop 3-30 tablet by ity of hen 5-325 00:00: mouth 4 [place] mg tablet 00 (four) Medical times [place] daily. pregabalin 2023-0 Yes 150mg Take 1 Univ ers 150 mg 3-30 capsule by ity of capsule 00:00: mouth in [place] the Medical morning Branch and 1 capsule in the evening. meloxicam 2023-0 Yes Univers 15 mg 3-30 ity of tablet 00:00: [address] Branch HYDROcodone 2023-0 Yes 1{tbl} Take 1 Un travis -acetaminop 3-30 tablet by ity of hen 5-325 00:00: mouth 4 [place] mg tablet 00 (four) Medical times [place] daily. pregabalin 2023-0 Yes 150mg Take 1 Univ ers 150 mg 3-30 capsule by ity of capsule 00:00: mouth in [place] the Medical morning Branch and 1 capsule in the evening. meloxicam 2023-0 Yes Univers 15 mg 3-30 ity of tablet 00:00: [place] [facility] Branch HYDROcodone 2023-0 Yes 1{tbl} Take 1 Un travis -acetaminop 3-30 tablet by ity of hen 5-325 00:00: mouth 4 [place] mg tablet 00 (four) Medical times [place] daily. pregabalin 2023-0 Yes 150mg Take 1 Univ ers 150 mg 3-30 capsule by ity of capsule 00:00: mouth in [place] the Medical morning Branch and 1 capsule in the evening. meloxicam 2023-0 Yes Univers 15 mg 3-30 ity of tablet 00:00: [place] [facility] Branch HYDROcodone 2023-0 Yes 1{tbl} Take 1 Un travis -acetaminop 3-30 tablet by ity of hen 5-325 00:00: mouth 4 [place] mg tablet 00 ([facility]) Medical times [place] daily. pregabalin 2023-0 Yes 150mg Take 1 Univ ers 150 mg 3-30 capsule by ity of capsule 00:00: mouth in [place] the Medical morning Branch and 1 capsule in the evening. meloxicam 2023-0 Yes Univers 15 mg 3-30 ity of tablet 00:00: [place] [facility] Branch HYDROcodone 2023-0 Yes 1{tbl} Take 1 Un travis -acetaminop 3-30 tablet by ity of hen 5-325 00:00: mouth 4 [place] mg tablet 00 (four) Medical times Branch daily. pregabalin 2023-0 Yes 150mg Take 1 Univ ers 150 mg 3-30 capsule by ity of capsule 00:00: mouth in [place] the Medical morning Branch and 1 capsule in the evening. meloxicam 2023-0 Yes Univers 15 mg 3-30 ity of tablet 00:00: [place] [facility] Branch HYDROcodone 2023-0 Yes 1{tbl} Take 1 Un travis -acetaminop 3-30 tablet by ity of hen 5-325 00:00: mouth 4 [place] mg tablet 00 (four) Medical times Branch daily. pregabalin 2023-0 Yes 150mg Take 1 Univ ers 150 mg 3-30 capsule by ity of capsule 00:00: mouth in [place] the Medical morning Branch and 1 capsule in the evening. meloxicam 2023-0 Yes Univers 15 mg 3-30 ity of tablet 00:00: [place] [facility] Branch HYDROcodone 2023-0 Yes 1{tbl} Take 1 Un travis -acetaminop 3-30 tablet by ity of hen 5-325 00:00: mouth 4 [place] mg tablet ([facility]) [facility] times [place] daily. pregabalin 2023-0 Yes 150mg Take 1 Univ ers 150 mg 3-30 capsule by ity of capsule 00:00: mouth in [place] the [facility] morning Branch and 1 capsule in the evening. meloxicam 2023-0 Yes Univers 15 mg 3-30 ity of tablet 00:00: [place] [facility] Branch HYDROcodone 2023-0 Yes 1{tbl} Take 1 Un travis -acetaminop 3-30 tablet by ity of hen 5-325 00:00: mouth 4 [place] mg tablet ([facility]) [facility] times [place] daily. pregabalin 2023-0 Yes 150mg Take 1 Univ ers 150 mg 3-30 capsule by ity of capsule 00:00: mouth in [place] the [facility] morning Branch and 1 capsule in the evening. meloxicam 2023-0 Yes Univers 15 mg 3-30 ity of tablet 00:00: [place] [facility] Branch HYDROcodone 2023-0 Yes 1{tbl} Take 1 Un travis -acetaminop 3-30 tablet by ity of hen 5-325 00:00: mouth 4 [place] mg tablet ([facility]) [facility] times [place] daily. pregabalin 2023-0 Yes 150mg Take 1 Univ ers 150 mg 3-30 capsule by ity of capsule 00:00: mouth in [place] the [facility] morning Branch and 1 capsule in the evening. meloxicam 2023-0 Yes Univers 15 mg 3-30 ity of tablet 00:00: [place] [facility] Branch HYDROcodone 2023-0 Yes 1{tbl} Take 1 Un travis -acetaminop 3-30 tablet by ity of hen 5-325 00:00: mouth 4 [place] mg tablet 00 ([facility]) Medical times [place] daily. pregabalin 2023-0 Yes 150mg Take 1 Univ ers 150 mg 3-30 capsule by ity of capsule 00:00: mouth in [place] the Medical morning Branch and 1 capsule in the evening. meloxicam 2023-0 Yes Univers 15 mg 3-30 ity of tablet 00:00: [place] [facility] Branch HYDROcodone 2023-0 Yes 1{tbl} Take 1 Un travis -acetaminop 3-30 tablet by ity of hen 5-325 00:00: mouth 4 [place] mg tablet 00 ([facility]) Medical times [place] daily. pregabalin 2023-0 Yes 150mg Take 1 Univ ers 150 mg 3-30 capsule by ity of capsule 00:00: mouth in [place] the Medical morning Branch and 1 capsule in the evening. meloxicam 2023-0 Yes Univers 15 mg 3-30 ity of tablet 00:00: [place] [facility] Branch HYDROcodone 2023-0 Yes 1{tbl} Take 1 Un travis -acetaminop 3-30 tablet by ity of hen 5-325 00:00: mouth 4 [place] mg tablet ([facility]) Medical times [place] daily. pregabalin 2023-0 Yes 150mg Take 1 Univ ers 150 mg 3-30 capsule by ity of capsule 00:00: mouth in [place] [address] the Medical morning Branch and 1 capsule in the evening. meloxicam 2023-0 Yes Univers 15 mg 3-30 ity of tablet 00:00: [place] [facility] Branch HYDROcodone 2023-0 Yes 1{tbl} Take 1 Un travis -acetaminop 3-30 tablet by ity of hen 5-325 00:00: mouth 4 [place] mg tablet ([facility]) Medical times [place] daily. pregabalin 2023-0 Yes 150mg Take 1 Univ ers 150 mg 3-30 capsule by ity of capsule 00:00: mouth in [place] the Medical morning Branch and 1 capsule in the evening. meloxicam 2023-0 Yes Univers 15 mg 3-30 ity of tablet 00:00: [place] [facility] Branch HYDROcodone 2023-0 Yes 1{tbl} Take 1 Un travis -acetaminop 3-30 tablet by ity of hen 5-325 00:00: mouth 4 [place] mg tablet 00 (four) Medical times [place] daily. pregabalin 2023-0 Yes 150mg Take 1 Univ ers 150 mg 3-30 capsule by ity of capsule 00:00: mouth in [place] [address] the Medical morning Branch and 1 capsule in the evening. meloxicam 2023-0 Yes [facility] 15 mg 3-30 ity of tablet 00:00: [place] [facility] Branch HYDROcodone 2023-0 Yes 1{tbl} Take 1 Un travis -acetaminop 3-30 tablet by ity of hen 5-325 00:00: mouth 4 [place] mg tablet 00 ([facility]) [facility] times [place] daily. pregabalin 2023-0 Yes 150mg Take 1 Univ ers 150 mg 3-30 capsule by ity of capsule 00:00: mouth in [place] the Medical morning Branch and 1 capsule in the evening. meloxicam 2023-0 Yes Univers 15 mg 3-30 ity of tablet 00:00: [place] [facility] Branch HYDROcodone 2023-0 Yes 1{tbl} Take 1 Un travis -acetaminop 3-30 tablet by ity of hen 5-325 00:00: mouth 4 [place] mg tablet 00 ([facility]) [facility] daily. pregabalin 2023-0 Yes 150mg Take 1 Univ ers 150 mg 3-30 capsule by ity of capsule 00:00: mouth in [place] [address] the [facility] morning Branch and 1 capsule in the evening. meloxicam 2023-0 Yes Univers 15 mg 3-30 ity of tablet 00:00: [place] [facility] Branch HYDROcodone 2023-0 Yes 1{tbl} Take 1 Un travis -acetaminop 3-30 tablet by ity of hen 5-325 00:00: mouth 4 [place] mg tablet 00 ([facility]) [facility] daily. pregabalin 2023-0 Yes 150mg Take 1 Univ ers 150 mg 3-30 capsule by ity of capsule 00:00: mouth in [place] the [facility] morning Branch and 1 capsule in the evening. meloxicam 2023-0 Yes Univers 15 mg 3-30 ity of tablet 00:00: [place] [facility] Branch HYDROcodone 2023-0 Yes 1{tbl} Take 1 Un travis -acetaminop 3-30 tablet by ity of hen 5-325 00:00: mouth 4 [place] mg tablet 00 ([facility]) [facility] times [place] daily. pregabalin 2023-0 Yes 150mg Take 1 Univ ers 150 mg 3-30 capsule by ity of capsule 00:00: mouth in [place] [address] the [facility] morning Branch and 1 capsule in the evening. meloxicam 2023-0 Yes Univers 15 mg 3-30 ity of tablet 00:00: [place] [facility] Branch HYDROcodone 2023-0 Yes 1{tbl} Take 1 Un travis -acetaminop 3-30 tablet by ity of hen 5-325 00:00: mouth 4 [place] mg tablet 00 ([facility]) [facility] times [place] daily. pregabalin 2023-0 Yes 150mg Take 1 Univ ers 150 mg 3-30 capsule by ity of capsule 00:00: mouth in [place] the [facility] morning Branch and 1 capsule in the evening. meloxicam 2023-0 Yes Univers 15 mg 3-30 ity of tablet 00:00: [place] [facility] Branch HYDROcodone 2023-0 Yes 1{tbl} Take 1 Un travis -acetaminop 3-30 tablet by ity of hen 5-325 00:00: mouth 4 [place] mg tablet ([facility]) [facility] times [place] daily. pregabalin 2023-0 Yes 150mg Take 1 Univ ers 150 mg 3-30 capsule by ity of capsule 00:00: mouth in [place] the [facility] morning Branch and 1 capsule in the evening. meloxicam 2023-0 Yes Univers 15 mg 3-30 ity of tablet 00:00: [place] [facility] Branch HYDROcodone 2023-0 Yes 1{tbl} Take 1 Un travis -acetaminop 3-30 tablet by ity of hen 5-325 00:00: mouth 4 [place] mg tablet ([facility]) [facility] daily. pregabalin 2023-0 Yes 150mg Take 1 Univ ers 150 mg 3-30 capsule by ity of capsule 00:00: mouth in [place] the [facility] morning Branch and 1 capsule in the evening. meloxicam 2023-0 Yes Univers 15 mg 3-30 ity of tablet 00:00: [place] [facility] Branch HYDROcodone 2023-0 Yes 1{tbl} Take 1 Un travis -acetaminop 3-30 tablet by ity of hen 5-325 00:00: mouth 4 [place] mg tablet 00 ([facility]) [facility] times [place] daily. pregabalin 2023-0 Yes 150mg Take 1 Univ ers 150 mg 3-30 capsule by ity of capsule 00:00: mouth in [place] [address] the [facility] morning Branch and 1 capsule in the evening. meloxicam 2023-0 Yes Univers 15 mg 3-30 ity of tablet 00:00: [address] Branch HYDROcodone 2023-0 Yes 1{tbl} Take 1 Un travis -acetaminop 3-30 tablet by ity of hen 5-325 00:00: mouth 4 [place] mg tablet 00 (four) Medical times [place] daily. pregabalin 2023-0 Yes 150mg Take 1 Univ ers 150 mg 3-30 capsule by ity of capsule 00:00: mouth in [place] the Medical morning [place] and 1 capsule in the evening. meloxicam 2023-0 Yes [facility] 15 mg 3-30 ity of tablet 00:00: [place] [facility] Branch HYDROcodone 2023-0 Yes 1{tbl} Take 1 Un travis -acetaminop 3-30 tablet by ity of hen 5-325 00:00: mouth 4 [place] mg tablet 00 (four) [facility] times [place] daily. pregabalin 2023-0 Yes 150mg Take 1 Univ ers 150 mg 3-30 capsule by ity of capsule 00:00: mouth in [place] [address] the [facility] morning [place] and 1 capsule in the evening. meloxicam 2023-0 Yes [facility] 15 mg 3-30 ity of tablet 00:00: [address] Branch pregabalin 2023-0 Yes 150mg Take 1 Univ ers 150 mg 3-30 capsule by ity of capsule 00:00: mouth in [place] [address] the [facility] morning [place] and 1 capsule in the evening. meloxicam 2023-0 Yes [facility] 15 mg 3-30 ity of tablet 00:00: [address] Branch pregabalin 2023-0 Yes 150mg Take 1 Univ ers 150 mg 3-30 capsule by ity of capsule 00:00: mouth in [place] [address] the [facility] morning [place] and 1 capsule in the evening. meloxicam 2023-0 Yes Univers 15 mg 3-30 ity of tablet 00:00: [address] Branch pregabalin 2023-0 Yes 150mg Take 1 Univ ers 150 mg 3-30 capsule by ity of capsule 00:00: mouth in [place] [address] the [facility] morning [place] and 1 capsule in the evening. meloxicam 2023-0 Yes Univers 15 mg 3-30 ity of tablet 00:00: [address] Branch pregabalin 2023-0 Yes 150mg Take 1 Univ ers 150 mg 3-30 capsule by ity of capsule 00:00: mouth in [place] [address] the [facility] morning [place] and 1 capsule in the evening. meloxicam 2023-0 Yes [facility] 15 mg 3-30 ity of tablet 00:00: [place] Medical Branch pregabalin 2023-0 Yes 150mg Take 1 Univ ers 150 mg 3-30 capsule by ity of capsule 00:00: mouth in [place] [address] the Medical morning Branch and 1 capsule in the evening. meloxicam 2023-0 Yes [facility] 15 mg 3-30 ity of tablet 00:00: [place] [address] Medical Branch pregabalin 2023-0 Yes 150mg Take 1 Univ ers 150 mg 3-30 capsule by ity of capsule 00:00: mouth in [place] [address] the Medical morning Branch and 1 capsule in the evening. meloxicam 2023-0 Yes [facility] 15 mg 3-30 ity of tablet 00:00: [place] [address] Medical Branch pregabalin 2023-0 Yes 150mg Take 1 Univ ers 150 mg 3-30 capsule by ity of capsule 00:00: mouth in [place] [address] the Medical morning Branch and 1 capsule in the evening. meloxicam 2023-0 Yes [facility] 15 mg 3-30 ity of tablet 00:00: [place] [address] Medical Branch pregabalin 2023-0 Yes 150mg Take 1 Univ ers 150 mg 3-30 capsule by ity of capsule 00:00: mouth in [place] [address] the Medical morning [place] and 1 capsule in the evening. meloxicam 2023-0 Yes [facility] 15 mg 3-30 ity of tablet 00:00: [place] [address] Medical Branch pregabalin 2023-0 Yes 150mg Take 1 Univ ers 150 mg 3-30 capsule by ity of capsule 00:00: mouth in [place] [address] the Medical morning [place] and 1 capsule in the evening. meloxicam 2023-0 Yes [facility] 15 mg 3-30 ity of tablet 00:00: [place] [address] Medical Branch pregabalin 2023-0 Yes 150mg Take 1 [facility] ers 150 mg 3-30 capsule by ity of capsule 00:00: mouth in [place] [address] the Medical morning Branch and 1 capsule in the evening. meloxicam 2023-0 Yes [facility] 15 mg 3-30 ity of tablet 00:00: [place] [address] Medical Branch pregabalin 2023-0 Yes 150mg Take 1 [facility] ers 150 mg 3-30 capsule by ity of capsule 00:00: mouth in [place] [address] the Medical morning [place] and 1 capsule in the evening. meloxicam 2023-0 Yes [facility] 15 mg 3-30 ity of tablet 00:00: [place] 00 [facility] Branch pregabalin 2023-0 Yes 150mg Take 1 Univ ers 150 mg 3-30 capsule by ity of capsule 00:00: mouth in [place] the Medical morning Branch and 1 capsule in the evening. meloxicam 2023-0 Yes [facility] 15 mg 3-30 ity of tablet 00:00: [place] [facility] Branch HYDROcodone 2023-0 Yes 1{tbl} Take 1 Un travis -acetaminop 3-30 tablet by ity of hen 5-325 00:00: mouth 4 [place] mg tablet 00 ([facility]) Medical times [place] daily. pregabalin 2023-0 Yes 150mg Take 1 [facility] ers 150 mg 3-30 capsule by ity of capsule 00:00: mouth in [place] the [facility] morning Branch and 1 capsule in the evening. meloxicam 2023-0 Yes [facility] 15 mg 3-30 ity of tablet 00:00: [place] [facility] Branch HYDROcodone 2023-0 Yes 1{tbl} Take 1 Un travis -acetaminop 3-30 tablet by ity of hen 5-325 00:00: mouth 4 [place] mg tablet ([facility]) [facility] times [place] daily. pregabalin 2023-0 Yes 150mg Take 1 Univ ers 150 mg 3-30 capsule by ity of capsule 00:00: mouth in [place] the [facility] morning Branch and 1 capsule in the evening. meloxicam 2023-0 Yes [facility] 15 mg 3-30 ity of tablet 00:00: [place] [facility] Branch HYDROcodone 2023-0 Yes 1{tbl} Take 1 Un travis -acetaminop 3-30 tablet by ity of hen 5-325 00:00: mouth 4 [place] mg tablet ([facility]) Medical times [place] daily. pregabalin 2023-0 Yes 150mg Take 1 [facility] ers 150 mg 3-30 capsule by ity of capsule 00:00: mouth in [place] the Medical morning Branch and 1 capsule in the evening. meloxicam 2023-0 Yes [facility] 15 mg 3-30 ity of tablet 00:00: [place] [facility] Branch HYDROcodone 2023-0 Yes 1{tbl} Take 1 Un travis -acetaminop 3-30 tablet by ity of hen 5-325 00:00: mouth 4 [place] mg tablet 00 ([facility]) Medical times Branch daily. pregabalin 2023-0 Yes 150mg Take 1 [facility] ers 150 mg 3-30 capsule by ity of capsule 00:00: mouth in [place] 00 the Medical morning Branch and 1 capsule in the evening. meloxicam 2023-0 Yes [facility] 15 mg 3-30 ity of tablet 00:00: [place] 00 Medical Branch HYDROcodone 3-0 Yes 1{tbl} Take 1 Un travis -acetaminop 3-30 tablet by ity of hen 5-325 00:00: mouth 4 [place] mg tablet 00 (four) Medical times Branch daily. pregabalin 2023-0 Yes 150mg Take 1 [facility] ers 150 mg 3-30 capsule by ity of capsule 00:00: mouth in [place] 00 the Medical morning Branch and 1 capsule in the evening. meloxicam 2023-0 Yes [facility] 15 mg 3-30 ity of tablet 00:00: [place] 00 Medical Branch HYDROcodone 3-0 Yes 1{tbl} Take 1 Un travis -acetaminop 3-30 tablet by ity of hen 5-325 00:00: mouth 4 [place] mg tablet 00 (four) Medical times Branch daily. HYDROcodone 3-0 [...] :00 (four) Medical times Branch daily. cyclobenzap 3-0 [...] tablet 00:00: [facility]TH [facility] cyclobenzap 2022-0 Yes TAKE 1 Univ ers rine 10 mg 3-15 TABLET BY ity of tablet 00:00: [facility] THREE Medical TIMES A Branch DAY NEEDED FOR 30 DAYS amitriptyli 3-0 Yes TAKE 1 Univ ers ne 50 mg 3-15 TABLET BY ity of tablet 00:00: [facility] 2022-0 Yes TAKE 1 Univ ers rine 10 mg 3-15 TABLET BY ity of tablet 00:00: MOUTH THREE Medical TIMES A Branch DAY NEEDED FOR 30 DAYS amitriptyli 3-0 Yes TAKE 1 Univ ers ne 50 mg 3-15 TABLET BY ity of tablet 00:00: [facility] cycl[facility]ap 3-0 Yes TAKE 1 Univ ers rine 10 mg 3-15 TABLET BY ity of tablet 00:00: [facility] THREE Medical TIMES A Branch DAY NEEDED FOR 30 DAYS amitriptyli 2023-0 Yes TAKE 1 Univ ers ne 50 mg 3-15 TABLET BY ity of tablet 00:00: MOUTH EVERY DAY Medical AT BEDTIME Branch FOR 30 DAYS cyclobenzap 3-0 Yes TAKE 1 Univ ers rine 10 mg 3-15 TABLET BY ity of tablet 00:00: [facility] THREE Medical TIMES A Branch DAY NEEDED FOR 30 DAYS amitriptyli 2023-0 Yes TAKE 1 Univ ers ne 50 mg 3-15 TABLET BY ity of tablet 00:00: [facility] EVERY DAY Medical AT BEDTIME Branch FOR 30 DAYS cyclobenzap 2023-0 Yes TAKE 1 Univ ers rine 10 mg 3-15 TABLET BY ity of tablet 00:00: MOUTH THREE Medical TIMES A Branch DAY NEEDED FOR 30 DAYS amitriptyli 2023-0 Yes TAKE 1 Univ ers ne 50 mg 3-15 TABLET BY ity of tablet 00:00: [facility] cycl[facility]ap 3-0 Yes TAKE 1 Univ ers rine 10 mg 3-15 TABLET BY ity of tablet 00:00: [facility] THREE Medical TIMES A Branch DAY NEEDED FOR 30 DAYS amitriptyli 2023-0 Yes TAKE 1 Univ ers ne 50 mg 3-15 TABLET BY ity of tablet 00:00: [facility] cycl[facility]ap 2022-0 Yes TAKE 1 Univ ers rine 10 mg 3-15 TABLET BY ity of tablet 00:00: [facility] THREE Medical TIMES A Branch DAY NEEDED FOR 30 DAYS amitriptyli 3-0 Yes TAKE 1 Univ ers ne 50 mg 3-15 TABLET BY ity of tablet 00:00: [facility] EVERY DAY Medical AT [facility] FOR 30 DAYS cyclobenzap 3-0 Yes TAKE 1 Univ ers rine 10 mg 3-15 TABLET BY ity of tablet 00:00: [facility] THREE Medical TIMES A Branch DAY NEEDED FOR 30 DAYS amitriptyli 3-0 Yes TAKE 1 Univ ers ne 50 mg 3-15 TABLET BY ity of tablet 00:00: [facility] EVERY DAY Medical AT [facility] FOR 30 DAYS cyclobenzap 3-0 Yes TAKE 1 Univ ers rine 10 mg 3-15 TABLET BY ity of tablet 00:00: [facility] THREE Medical TIMES A Branch DAY NEEDED FOR 30 DAYS amitriptyli 3-0 Yes TAKE 1 Univ ers ne 50 mg 3-15 TABLET BY ity of tablet 00:00: [facility] EVERY DAY Medical AT BEDTIME [place] FOR 30 DAYS cyclobenzap 3-0 Yes TAKE 1 Univ ers rine 10 mg 3-15 TABLET BY ity of tablet 00:00: [facility] THREE Medical TIMES A Branch DAY NEEDED FOR 30 DAYS amitriptyli 2023-0 Yes TAKE 1 Univ ers ne 50 mg 3-15 TABLET BY ity of tablet 00:00: [facility] EVERY DAY Medical AT BEDTIME Branch [...] 3-15 TABLET BY ity of tablet 00:00: [facility] EVERY DAY Medical AT BEDTIME Branch FOR 30 DAYS cyclobenzap 2022-0 Yes TAKE 1 Univ ers rine 10 mg 3-15 TABLET BY ity of tablet 00:00: [facility] THREE Medical TIMES A Branch DAY NEEDED FOR 30 DAYS amitriptyli 3-0 Yes TAKE 1 Univ ers ne 50 mg 3-15 TABLET BY ity of tablet 00:00: [facility] EVERY DAY Medical AT BEDTIME Branch FOR 30 DAYS cyclobenzap 3-0 Yes TAKE 1 Univ ers rine 10 mg 3-15 TABLET BY ity of tablet 00:00: [facility] THREE Medical TIMES A Branch DAY NEEDED FOR 30 DAYS amitriptyli 3-0 Yes TAKE 1 [facility] ers ne 50 mg 3-15 TABLET BY ity of tablet 00:00: [facility] cycl[facility]ap 3-0 Yes TAKE 1 [facility] ers rine 10 mg 3-15 TABLET BY ity of tablet 00:00: [facility] THREE Medical TIMES A Branch DAY NEEDED FOR 30 DAYS amitriptyli 2023-0 Yes TAKE 1 Univ ers ne 50 mg 3-15 TABLET BY ity of tablet 00:00: [facility] EVERY DAY Medical AT BEDTIME Branch FOR 30 DAYS cyclobenzap 2023-0 Yes TAKE 1 Univ ers rine 10 mg 3-15 TABLET BY ity of tablet 00:00: [facility] THREE Medical TIMES A Branch DAY NEEDED FOR 30 DAYS amitriptyli 2023-0 Yes TAKE 1 Univ ers ne 50 mg 3-15 TABLET BY ity of tablet 00:00: [facility] EVERY DAY Medical AT BEDTIME Branch FOR 30 DAYS cyclobenzap 3-0 Yes TAKE 1 Univ ers rine 10 mg 3-15 TABLET BY ity of tablet 00:00: MOUTH [place] 00 THREE Medical TIMES A Branch DAY NEEDED FOR 30 DAYS amitriptyli 3-0 Yes TAKE 1 Univ ers ne 50 mg 3-15 TABLET BY ity of tablet 00:00: MOUTH [place] [facility] 3-0 Yes TAKE 1 Univ ers rine 10 mg 3-15 TABLET BY ity of tablet 00:00: MOUTH [place] THREE Medical TIMES A Branch DAY NEEDED FOR 30 DAYS amitriptyli 2022-0 Yes TAKE 1 Univ ers ne 50 mg 3-15 TABLET BY ity of tablet 00:00: [facility] cycl[facility]ap 2022-0 Yes TAKE 1 Univ ers rine 10 mg 3-15 TABLET BY ity of tablet 00:00: [facility] THREE Medical TIMES A Branch DAY NEEDED FOR 30 DAYS amitriptyli 2022-0 Yes TAKE 1 Univ ers ne 50 mg 3-15 TABLET BY ity of tablet 00:00: [facility] EVERY DAY Medical AT [facility] FOR 30 DAYS cyclobenzap 2022-0 Yes TAKE 1 Univ ers rine 10 mg 3-15 TABLET BY ity of tablet 00:00: [facility] THREE Medical TIMES A Branch DAY NEEDED FOR 30 DAYS amitriptyli 3-0 Yes TAKE 1 Univ ers ne 50 mg 3-15 TABLET BY ity of tablet 00:00: [facility] cycl[facility]ap 3-0 Yes TAKE 1 Univ ers rine 10 mg 3-15 TABLET BY ity of tablet 00:00: [facility] THREE Medical TIMES A Branch DAY NEEDED FOR 30 DAYS amitriptyli 3-0 Yes TAKE 1 Univ ers ne 50 mg 3-15 TABLET BY ity of tablet 00:00: [facility] EVERY DAY Medical AT BEDTIME [place] FOR 30 DAYS cyclobenzap 3-0 Yes TAKE 1 Univ ers rine 10 mg 3-15 TABLET BY ity of tablet 00:00: [facility] THREE Medical TIMES A Branch DAY NEEDED FOR 30 DAYS amitriptyli 2023-0 Yes TAKE 1 Univ ers ne 50 mg 3-15 TABLET BY ity of tablet 00:00: MOUTH EVERY DAY Medical AT BEDTIME [place] FOR 30 DAYS cyclobenzap 2023-0 Yes TAKE 1 Univ ers rine 10 mg 3-15 TABLET BY ity of tablet 00:00: MOUTH THREE Medical TIMES A Branch DAY NEEDED FOR 30 DAYS amitriptyli 2023-0 Yes TAKE 1 [facility] ers ne 50 mg 3-15 TABLET BY ity of tablet 00:00: [facility] cyclobenzap 3-0 Yes TAKE 1 Univ ers rine 10 mg 3-15 TABLET BY ity of tablet 00:00: MOUTH THREE Medical TIMES A Branch DAY NEEDED FOR 30 DAYS amitriptyli 3-0 Yes TAKE 1 Univ ers ne 50 mg 3-15 TABLET BY ity of tablet 00:00: [facility] EVERY DAY Medical AT BEDTIME [place] FOR 30 DAYS cyclobenzap 3-0 Yes TAKE 1 Univ ers rine 10 mg 3-15 TABLET BY ity of tablet 00:00: [facility] THREE Medical TIMES A Branch DAY NEEDED FOR 30 DAYS amitriptyli 2023-0 Yes TAKE 1 Univ ers ne 50 mg 3-15 TABLET BY ity of tablet 00:00: [facility] EVERY DAY Medical AT BEDTIME Branch FOR 30 DAYS cyclobenzap 3-0 Yes TAKE 1 Univ ers rine 10 mg 3-15 TABLET BY ity of tablet 00:00: [facility] THREE Medical TIMES A Branch DAY NEEDED FOR 30 DAYS amitriptyli 2023-0 Yes TAKE 1 Univ ers ne 50 mg 3-15 TABLET BY ity of tablet 00:00: [facility] EVERY DAY Medical AT BEDTIME [place] FOR 30 DAYS cyclobenzap 2023-0 Yes TAKE 1 Univ ers rine 10 mg 3-15 TABLET BY ity of tablet 00:00: [facility] THREE Medical TIMES A Branch DAY NEEDED FOR 30 DAYS amitriptyli 2023-0 Yes TAKE 1 Univ ers ne 50 mg 3-15 TABLET BY ity of tablet 00:00: [facility] EVERY DAY Medical AT BEDTIME Branch FOR 30 DAYS cyclobenzap 2023-0 Yes TAKE 1 Univ ers rine 10 mg 3-15 TABLET BY ity of tablet 00:00: [facility] THREE Medical TIMES A Branch DAY NEEDED FOR 30 DAYS amitriptyli 2023-0 Yes TAKE 1 Univ ers ne 50 mg 3-15 TABLET BY ity of tablet 00:00: [facility]TH [facility] cyclobenzap 3-0 Yes TAKE 1 Univ ers rine 10 mg 3-15 TABLET BY ity of tablet 00:00: MOUTH THREE Medical TIMES A Branch DAY NEEDED FOR 30 DAYS amitriptyli 2023-0 Yes TAKE 1 [facility] ers ne 50 mg 3-15 TABLET BY ity of tablet 00:00: MOUTH EVERY DAY Medical AT [facility] FOR 30 DAYS cyclobenzap 3-0 Yes TAKE 1 Univ ers rine 10 mg 3-15 TABLET BY ity of tablet 00:00: [facility] THREE Medical TIMES A Branch DAY NEEDED FOR 30 DAYS amitriptyli 3-0 Yes TAKE 1 Univ ers ne 50 mg 3-15 TABLET BY ity of tablet 00:00: [facility] EVERY DAY Medical AT [facility] FOR 30 DAYS cyclobenzap 3-0 Yes TAKE 1 Univ ers rine 10 mg 3-15 TABLET BY ity of tablet 00:00: [facility] THREE Medical TIMES A Branch DAY NEEDED FOR 30 DAYS amitriptyli 2023-0 Yes TAKE 1 Univ ers ne 50 mg 3-15 TABLET BY ity of tablet 00:00: [facility] EVERY DAY Medical AT [facility] FOR 30 DAYS cyclobenzap 3-0 Yes TAKE 1 Univ ers rine 10 mg 3-15 TABLET BY ity of tablet 00:00: [facility] THREE Medical TIMES A Branch DAY NEEDED FOR 30 DAYS amitriptyli 2023-0 Yes TAKE 1 [facility] ers ne 50 mg 3-15 TABLET BY ity of tablet 00:00: [facility]TH [facility] 2023-0 Yes TAKE 1 Univ ers rine 10 mg 3-15 TABLET BY ity of tablet 00:00: [facility] THREE Medical TIMES A Branch DAY NEEDED FOR 30 DAYS amitriptyli 2023-0 Yes TAKE 1 Univ ers ne 50 mg 3-15 TABLET BY ity of tablet 00:00: [facility] EVERY DAY Medical AT BEDTIME [place] FOR 30 DAYS cyclobenzap 2023-0 Yes TAKE 1 Univ ers rine 10 mg 3-15 TABLET BY ity of tablet 00:00: MOUTH [place] 00 THREE Medical TIMES A Branch DAY NEEDED FOR 30 DAYS amitriptyli 2023-0 Yes TAKE 1 Univ ers ne 50 mg 3-15 TABLET BY ity of tablet 00:00: [facility] EVERY DAY Medical AT BEDTIME Branch FOR 30 DAYS cyclobenzap 2023-0 Yes TAKE 1 Univ ers rine 10 mg 3-15 TABLET BY ity of tablet 00:00: MOUTH THREE Medical TIMES A Branch DAY NEEDED FOR 30 DAYS amitriptyli 2023-0 Yes TAKE 1 Univ ers ne 50 mg 3-15 TABLET BY ity of tablet 00:00: [facility] EVERY DAY Medical AT BEDTIME Branch FOR 30 DAYS cyclobenzap 3-0 Yes TAKE 1 Univ ers rine 10 mg 3-15 TABLET BY ity of tablet 00:00: [facility] THREE Medical TIMES A Branch DAY NEEDED FOR 30 DAYS amitriptyli 2023-0 Yes TAKE 1 Univ ers ne 50 mg 3-15 TABLET BY ity of tablet 00:00: [facility] cyclobenzap 3-0 Yes TAKE 1 Univ ers rine 10 mg 3-15 TABLET BY ity of tablet 00:00: [facility] THREE Medical TIMES A Branch DAY NEEDED FOR 30 DAYS amitriptyli 3-0 Yes TAKE 1 Univ ers ne 50 mg 3-15 TABLET BY ity of tablet 00:00: [facility] 3-0 Yes TAKE 1 Univ ers rine 10 mg 3-15 TABLET BY ity of tablet 00:00: [facility] THREE Medical TIMES A Branch DAY NEEDED FOR 30 DAYS amitriptyli 2023-0 Yes TAKE 1 Univ ers ne 50 mg 3-15 TABLET BY ity of tablet 00:00: [facility] EVERY DAY Medical AT BEDTIME Branch FOR 30 DAYS cyclobenzap 2023-0 Yes TAKE 1 Univ ers rine 10 mg 3-15 TABLET BY ity of tablet 00:00: [facility] THREE Medical TIMES A Branch DAY NEEDED FOR 30 DAYS amitriptyli 2023-0 Yes TAKE 1 Univ ers ne 50 mg 3-15 TABLET BY ity of tablet 00:00: [facility] EVERY DAY Medical AT BEDTIME Branch [...] 3-15 TABLET BY ity of tablet 00:00: [facility] EVERY DAY Medical AT BEDTIME Branch FOR 30 DAYS cyclobenzap 2023-0 Yes TAKE 1 Univ ers rine 10 mg 3-15 TABLET BY ity of tablet 00:00: MOUTH THREE Medical TIMES A Branch DAY NEEDED FOR 30 DAYS amitriptyli 2023-0 Yes TAKE 1 Univ ers ne 50 mg 3-15 TABLET BY ity of tablet 00:00: [facility] EVERY DAY Medical AT BEDTIME Branch [...] 3-15 TABLET BY ity of tablet 00:00: [facility] EVERY DAY Medical AT BEDTIME Branch FOR 30 DAYS cyclobenzap 2023-0 Yes TAKE 1 Univ ers rine 10 mg 3-15 TABLET BY ity of tablet 00:00: MOUTH 00 THREE Medical TIMES A Branch DAY NEEDED FOR 30 DAYS amitriptyli 2023-0 Yes TAKE 1 Univ ers ne 50 mg 3-15 TABLET BY ity of tablet 00:00: [facility]TH [facility] cyclobenzap 3-0 Yes TAKE 1 Univ ers rine 10 mg 3-15 TABLET BY ity of tablet 00:00: MOUTH THREE Medical TIMES A Branch DAY NEEDED FOR 30 DAYS amitriptyli 2023-0 Yes TAKE 1 Univ ers ne 50 mg 3-15 TABLET BY ity of tablet 00:00: [facility] cyclobenzap 3-0 Yes TAKE 1 Univ ers rine 10 mg 3-15 TABLET BY ity of tablet 00:00: THREE Medical TIMES A Branch DAY NEEDED FOR 30 DAYS amitriptyli 2023-0 Yes TAKE 1 Univ ers ne 50 mg 3-15 TABLET BY ity of tablet 00:00: [facility] cyclobenzap 3-0 Yes TAKE 1 Univ ers rine 10 mg 3-15 TABLET BY ity of tablet 00:00: [facility] THREE Medical TIMES A Branch DAY NEEDED FOR 30 DAYS amitriptyli 2023-0 Yes TAKE 1 Univ ers ne 50 mg 3-15 TABLET BY ity of tablet 00:00: [facility] cyclobenzap [...] BEDTIME Branch FOR 30 DAYS NaCl 0.9% 2022- No [...] Tue Branch 11/03/22 at 0900, STAT diphenhydrA 0 2022- No 25mg 25 mg, Uni vers MINE 11-03 Slow IV ity of (BENADRYL) 15:00: 15:18 [place], [place] injection 00 :00 ONCE, 1 Medical 25 mg dose, On Branch Wed11/03/22 at 0900, STAT LORazepam 2022-0 Yes [id number] 1mg Take 1 U nivers (ATIVAN) 1 - tablet by ity of mg tablet 00:00: mouth (two) Medical times Branch daily as needed for Anxiety or Agitation. hydrOXYzine 3-0 Yes [id number] 25mg Take 1 Univers (VISTARIL) 2-28 capsule by ity of 25 mg 00:00: mouth 3 [place] capsule 00 (three) Medical times Branch daily as needed for Anxiety. LORazepam 3-0 Yes [id number] 1mg Take 1 U nivers (ATIVAN) 1 2- tablet by ity of mg tablet 00:00: mouth 2 [place] 00 (two) Medical times Branch daily as needed for Anxiety or Agitation. hydrOXYzine 2023-0 Yes [id number] 25mg Take 1 Univers (VISTARIL) 2-28 capsule by ity of 25 mg 00:00: mouth 3 [place] capsule 00 (three) Medical times Branch daily as needed for Anxiety. LORazepam 3-0 Yes [id number] 1mg Take 1 U nivers (ATIVAN) 1 2-28 tablet by ity of mg tablet 00:00: mouth 2 [place] 00 (two) Medical times Branch daily as needed for Anxiety or Agitation. hydrOXYzine 2023-0 Yes [id number] 25mg Take 1 Univers (VISTARIL) 2-28 capsule by ity of 25 mg 00:00: mouth 3 [place] capsule 00 (three) Medical times Branch daily as needed for Anxiety. LORazepam 2023-0 Yes [id number] 1mg Take 1 U nivers (ATIVAN) 1 2-28 tablet by ity of mg tablet 00:00: mouth 2 [place] 00 (two) Medical times Branch daily as needed for Anxiety or Agitation. hydrOXYzine 2023-0 Yes [id number] 25mg Take 1 Univers (VISTARIL) 2-28 capsule by ity of 25 mg 00:00: mouth 3 [place] capsule 00 (three) Medical times Branch daily as needed for Anxiety. LORazepam 2023-0 Yes [id number] 1mg Take 1 U nivers (ATIVAN) 1 2-28 tablet by ity of mg tablet 00:00: mouth 2 (two) Medical times Branch daily as needed for Anxiety or Agitation. hydrOXYzine 2023-0 Yes [id number] 25mg Take 1 Univers (VISTARIL) 2-28 capsule by ity of 25 mg 00:00: mouth 3 [place] capsule 00 (three) Medical times Branch daily as needed for Anxiety. LORazepam 2023-0 Yes [id number] 1mg Take 1 U nivers (ATIVAN) 1 2-28 tablet by ity of mg tablet 00:00: mouth 2 00 (two) Medical times Branch daily as needed for Anxiety or Agitation. hydrOXYzine 2023-0 Yes [id number] 25mg Take 1 Univers (VISTARIL) 2-28 capsule by ity of 25 mg 00:00: mouth 3 [place] capsule 00 (three) Medical times Branch daily as needed for Anxiety. LORazepam 2023-0 Yes [id number] 1mg Take 1 U nivers (ATIVAN) 1 2-28 tablet by ity of mg tablet 00:00: mouth 2 [place] 00 (two) Medical times Branch daily as needed for Anxiety or Agitation. hydrOXYzine 2023-0 Yes [id number] 25mg Take 1 Univers (VISTARIL) 2-28 capsule by ity of 25 mg 00:00: mouth 3 [place] capsule 00 (three) Medical times Branch daily as needed for Anxiety. LORazepam 2023-0 Yes [id number] 1mg Take 1 U nivers (ATIVAN) 1 2-28 tablet by ity of mg tablet 00:00: mouth 2 [place] 00 (two) Medical times Branch daily as needed for Anxiety or Agitation. hydrOXYzine 2023-0 Yes [id number] 25mg Take 1 Univers (VISTARIL) 2-28 capsule by ity of 25 mg 00:00: mouth 3 [place] capsule 00 (three) Medical times Branch daily as needed for Anxiety. LORazepam 2023-0 Yes [id number] 1mg Take 1 U nivers (ATIVAN) 1 2-28 tablet by ity of mg tablet 00:00: mouth 2 [place] 00 (two) Medical times Branch daily as needed for Anxiety or Agitation. hydrOXYzine 2023-0 Yes [id number] 25mg Take 1 Univers (VISTARIL) 2-28 capsule by ity of 25 mg 00:00: mouth 3 [place] capsule 00 (three) Medical times Branch daily as needed for Anxiety. LORazepam 2023-0 Yes [id number] 1mg Take 1 U nivers (ATIVAN) 1 2-28 tablet by ity of mg tablet 00:00: mouth 2 [place] 00 (two) Medical times Branch daily as needed for Anxiety or Agitation. hydrOXYzine 2023-0 Yes [id number] 25mg Take 1 Univers (VISTARIL) 2-28 capsule by ity of 25 mg 00:00: mouth 3 [place] capsule 00 (three) Medical times Branch daily as needed for Anxiety. LORazepam 2023-0 Yes [id number] 1mg Take 1 U nivers (ATIVAN) 1 2-28 tablet by ity of mg tablet 00:00: mouth 2 [place] 00 (two) Medical times Branch daily as needed for Anxiety or Agitation. hydrOXYzine 2023-0 Yes [id number] 25mg Take 1 Univers (VISTARIL) 2-28 capsule by ity of 25 mg 00:00: mouth 3 [place] capsule 00 (three) Medical times Branch daily as needed for Anxiety. LORazepam 2023-0 Yes [id number] 1mg Take 1 U nivers (ATIVAN) 1 2-28 tablet by ity of mg tablet 00:00: mouth 2 [place] 00 (two) Medical times Branch daily as needed for Anxiety or Agitation. hydrOXYzine 2023-0 Yes [id number] 25mg Take 1 Univers (VISTARIL) 2-28 capsule by ity of 25 mg 00:00: mouth 3 [place] capsule 00 (three) Medical times Branch daily as needed for Anxiety. LORazepam 2023-0 Yes [id number] 1mg Take 1 U nivers (ATIVAN) 1 2-28 tablet by ity of mg tablet 00:00: mouth 2 [place] 00 (two) Medical times Branch daily as needed for Anxiety or Agitation. hydrOXYzine 2023-0 Yes [id number] 25mg Take 1 Univers (VISTARIL) 2-28 capsule by ity of 25 mg 00:00: mouth 3 [place] capsule 00 (three) Medical times Branch daily as needed for Anxiety. LORazepam 2023-0 Yes [id number] 1mg Take 1 U nivers (ATIVAN) 1 2-28 tablet by ity of mg tablet 00:00: mouth 2 [place] 00 (two) Medical times Branch daily as needed for Anxiety or Agitation. hydrOXYzine 2023-0 Yes [id number] 25mg Take 1 Univers (VISTARIL) 2-28 capsule by ity of 25 mg 00:00: mouth 3 [place] capsule 00 (three) Medical times Branch daily as needed for Anxiety. LORazepam 2023-0 Yes [id number] 1mg Take 1 U nivers (ATIVAN) 1 2-28 tablet by ity of mg tablet 00:00: mouth 2 [place] 00 (two) Medical times Branch daily as needed for Anxiety or Agitation. hydrOXYzine 2023-0 Yes [id number] 25mg Take 1 Univers (VISTARIL) 2-28 capsule by ity of 25 mg 00:00: mouth 3 [place] capsule 00 (three) Medical times Branch daily as needed for Anxiety. LORazepam 2023-0 Yes [id number] 1mg Take 1 U nivers (ATIVAN) 1 2-28 tablet by ity of mg tablet 00:00: mouth 2 [place] 00 (two) Medical times Branch daily as needed for Anxiety or Agitation. hydrOXYzine 2023-0 Yes [id number] 25mg Take 1 Univers (VISTARIL) 2-28 capsule by ity of 25 mg 00:00: mouth 3 [place] capsule 00 (three) Medical times Branch daily as needed for Anxiety. LORazepam 2023-0 Yes [id number] 1mg Take 1 U nivers (ATIVAN) 1 2-28 tablet by ity of mg tablet 00:00: mouth 2 [place] 00 (two) Medical times Branch daily as needed for Anxiety or Agitation. hydrOXYzine 2023-0 Yes [id number] 25mg Take 1 [facility] (VISTARIL) 2-28 capsule by ity of 25 mg 00:00: mouth 3 [place] capsule 00 (three) Medical times Branch daily as needed for Anxiety. LORazepam 2023-0 Yes [id number] 1mg Take 1 [facility] (ATIVAN) 1 2-28 tablet by ity of mg tablet 00:00: mouth 2 [place] 00 (two) Medical times Branch daily as needed for Anxiety or Agitation. hydrOXYzine 2023-0 Yes [id number] 25mg Take 1 [facility] (VISTARIL) 2-28 capsule by ity of 25 mg 00:00: mouth 3 [place] capsule 00 (three) Medical times Branch daily as needed for Anxiety. LORazepam 2023-0 Yes [id number] 1mg Take 1 [facility] (ATIVAN) 1 2-28 tablet by ity of mg tablet 00:00: mouth 2 [place] 00 (two) Medical times Branch daily as needed for Anxiety or Agitation. hydrOXYzine 2023-0 Yes [id number] 25mg Take 1 [facility] (VISTARIL) 2-28 capsule by ity of 25 mg 00:00: mouth 3 [place] capsule 00 (three) Medical times Branch daily as needed for Anxiety. LORazepam 2023-0 Yes [id number] 1mg Take 1 [facility] (ATIVAN) 1 2-28 tablet by ity of mg tablet 00:00: mouth 2 [place] 00 (two) Medical times Branch daily as needed for Anxiety or Agitation. hydrOXYzine 2023-0 Yes [id number] 25mg Take 1 [facility] (VISTARIL) 2-28 capsule by ity of 25 mg 00:00: mouth 3 [place] capsule 00 (three) Medical times Branch daily as needed for Anxiety. LORazepam 2023-0 Yes [id number] 1mg Take 1 [facility] (ATIVAN) 1 2-28 tablet by ity of mg tablet 00:00: mouth 2 [place] 00 (two) Medical times Branch daily as needed for Anxiety or Agitation. hydrOXYzine 2023-0 Yes [id number] 25mg Take 1 [facility] (VISTARIL) 2-28 capsule by ity of 25 mg 00:00: mouth 3 [place] capsule 00 (three) Medical times Branch daily as needed for Anxiety. LORazepam 2023-0 Yes [id number] 1mg Take 1 [facility] (ATIVAN) 1 2-28 tablet by ity of mg tablet 00:00: mouth 2 [place] 00 (two) Medical times Branch daily as needed for Anxiety or Agitation. hydrOXYzine 2023-0 Yes [id number] 25mg Take 1 [facility] (VISTARIL) 2-28 capsule by ity of 25 mg 00:00: mouth 3 [place] capsule 00 (three) Medical times Branch daily as needed for Anxiety. LORazepam 2023-0 Yes [id number] 1mg Take 1 [facility] (ATIVAN) 1 2-28 tablet by ity of mg tablet 00:00: mouth 2 [place] 00 (two) Medical times Branch daily as needed for Anxiety or Agitation. hydrOXYzine 2023-0 Yes [id number] 25mg Take 1 [facility] (VISTARIL) 2-28 capsule by ity of 25 mg 00:00: mouth 3 [place] capsule 00 (three) Medical times Branch daily as needed for Anxiety. LORazepam 2023-0 Yes [id number] 1mg Take 1 [facility] (ATIVAN) 1 2-28 tablet by ity of mg tablet 00:00: mouth 2 (two) Medical times Branch daily as needed for Anxiety or Agitation. hydrOXYzine 2023-0 Yes [id number] 25mg Take 1 [facility] (VISTARIL) 2-28 capsule by ity of 25 mg 00:00: mouth 3 [place] capsule 00 (three) Medical times Branch daily as needed for Anxiety. LORazepam 2023-0 Yes [id number] 1mg Take 1 [facility] (ATIVAN) 1 2-28 tablet by ity of mg tablet 00:00: mouth 2 00 (two) Medical times Branch daily as needed for Anxiety or Agitation. LORazepam 2023-0 Yes [id number] 1mg Take 1 [facility] (ATIVAN) 1 2-28 tablet by ity of mg tablet 00:00: mouth 2 [place] 00 (two) Medical times Branch daily as needed for Anxiety or Agitation. LORazepam 2023-0 Yes [id number] 1mg Take 1 [facility] (ATIVAN) 1 2-28 tablet by ity of mg tablet 00:00: mouth 2 00 (two) Medical times Branch daily as needed for Anxiety or Agitation. LORazepam 2023-0 Yes [id number] 1mg Take 1 [facility] (ATIVAN) 1 2-28 tablet by ity of mg tablet 00:00: mouth (two) Medical times Branch daily as needed for Anxiety or Agitation. LORazepam 2023-0 Yes [id number] 1mg Take 1 [facility] (ATIVAN) 1 2-28 tablet by ity of mg tablet 00:00: mouth (two) Medical times Branch daily as needed for Anxiety or Agitation. LORazepam 2023-0 Yes [id number] 1mg Take 1 [facility] (ATIVAN) 1 2-28 tablet by ity of mg tablet 00:00: mouth (two) Medical times Branch daily as needed for Anxiety or Agitation. LORazepam 2023-0 Yes [id number] 1mg Take 1 [facility] (ATIVAN) 1 2-28 tablet by ity of mg tablet 00:00: mouth (two) Medical times Branch daily as needed for Anxiety or Agitation. LORazepam 2023-0 Yes [id number] 1mg Take 1 [facility] (ATIVAN) 1 2-28 tablet by ity of mg tablet 00:00: mouth (two) Medical times Branch daily as needed for Anxiety or Agitation. LORazepam 2023-0 Yes [id number] 1mg Take 1 [facility] (ATIVAN) 1 2-28 tablet by ity of mg tablet 00:00: mouth (two) Medical times Branch daily as needed for Anxiety or Agitation. LORazepam 2023-0 Yes [id number] 1mg Take 1 [facility] (ATIVAN) 1 2-28 tablet by ity of mg tablet 00:00: mouth (two) Medical times Branch daily as needed for Anxiety or Agitation. LORazepam 2023-0 Yes [id number] 1mg Take 1 [facility] (ATIVAN) 1 2-28 tablet by ity of mg tablet 00:00: mouth (two) Medical times Branch daily as needed for Anxiety or Agitation. LORazepam 2023-0 Yes [id number] 1mg Take 1 [facility] (ATIVAN) 1 2-28 tablet by ity of mg tablet 00:00: mouth (two) Medical times Branch daily as needed for Anxiety or Agitation. LORazepam 2023-0 Yes [id number] 1mg Take 1 [facility] (ATIVAN) 1 2-28 tablet by ity of mg tablet 00:00: mouth (two) Medical times Branch daily as needed for Anxiety or Agitation. LORazepam 2023-0 Yes [id number] 1mg Take 1 [facility] (ATIVAN) 1 2-28 tablet by ity of mg tablet 00:00: mouth (two) Medical times Branch daily as needed for Anxiety or Agitation. LORazepam 2023-0 Yes [id number] 1mg Take 1 [facility] (ATIVAN) 1 2-28 tablet by ity of mg tablet 00:00: mouth (two) Medical times Branch daily as needed for Anxiety or Agitation. LORazepam 2023-0 Yes [id number] 1mg Take 1 [facility] (ATIVAN) 1 2-28 tablet by ity of mg tablet 00:00: mouth (two) Medical times Branch daily as needed for Anxiety or Agitation. LORazepam 2023-0 Yes [id number] 1mg Take 1 [facility] (ATIVAN) 1 2-28 tablet by ity of mg tablet 00:00: mouth (two) Medical times Branch daily as needed for Anxiety or Agitation. LORazepam 2023-0 Yes [id number] 1mg Take 1 [facility] (ATIVAN) 1 2-28 tablet by ity of mg tablet 00:00: mouth (two) Medical times Branch daily as needed for Anxiety or Agitation. LORazepam 2023-0 Yes [id number] 1mg Take 1 [facility] (ATIVAN) 1 2-28 tablet by ity of mg tablet 00:00: mouth (two) Medical times Branch daily as needed for Anxiety or Agitation. LORazepam 2023-0 Yes [id number] 1mg Take 1 [facility] (ATIVAN) 1 2-28 tablet by ity of mg tablet 00:00: mouth (two) Medical times Branch daily as needed for Anxiety or Agitation. LORazepam 2023-0 Yes [id number] 1mg Take 1 [facility] (ATIVAN) 1 2-28 tablet by ity of mg tablet 00:00: mouth (two) Medical times Branch daily as needed for Anxiety or Agitation. LORazepam 2023-0 Yes [id number] 1mg Take 1 [facility] (ATIVAN) 1 2-28 tablet by ity of mg tablet 00:00: mouth 2 (two) Medical times Branch daily as needed for Anxiety or Agitation. LORazepam 2023-0 Yes [id number] 1mg Take 1 [facility] (ATIVAN) 1 2-28 tablet by ity of mg tablet 00:00: mouth 2 (two) Medical times Branch daily as needed for Anxiety or Agitation. LORazepam 2023-0 Yes [id number] 1mg Take 1 [facility] (ATIVAN) 1 2-28 tablet by ity of mg tablet 00:00: mouth 2 (two) Medical times Branch daily as needed for Anxiety or Agitation. LORazepam 2023-0 Yes [id number] 1mg Take 1 [facility] (ATIVAN) 1 2-28 tablet by ity of mg tablet 00:00: mouth 2 (two) Medical times Branch daily as needed for Anxiety or Agitation. hydrOXYzine 2023-0 Yes [id number] 25mg Take 1 [facility] (VISTARIL) 2-28 capsule by ity of 25 mg 00:00: mouth 3 [place] capsule 00 (three) Medical times Branch daily as needed for Anxiety. LORazepam 2023-0 Yes [id number] 1mg Take 1 [facility] (ATIVAN) 1 2-28 tablet by ity of mg tablet 00:00: mouth 2 (two) Medical times Branch daily as needed for Anxiety or Agitation. hydrOXYzine 2023-0 Yes [id number] 25mg Take 1 [facility] (VISTARIL) 2-28 capsule by ity of 25 mg 00:00: mouth 3 [place] capsule 00 (three) Medical times Branch daily as needed for Anxiety. LORazepam 2023-0 Yes [id number] 1mg Take 1 [facility] (ATIVAN) 1 2-28 tablet by ity of mg tablet 00:00: mouth 2 00 (two) Medical times Branch daily as needed for Anxiety or Agitation. hydrOXYzine 2023-0 Yes [id number] 25mg Take 1 [facility] (VISTARIL) 2-28 capsule by ity of 25 mg 00:00: mouth 3 [place] capsule 00 (three) Medical times Branch daily as needed for Anxiety. LORazepam 2023-0 Yes [id number] 1mg Take 1 [facility] (ATIVAN) 1 2-28 tablet by ity of mg tablet 00:00: mouth 2 [place] 00 (two) Medical times Branch daily as needed for Anxiety or Agitation. hydrOXYzine 2023-0 Yes [id number] 25mg Take 1 [facility] (VISTARIL) 2-28 capsule by ity of 25 mg 00:00: mouth 3 [place] capsule 00 (three) Medical times Branch daily as needed for Anxiety. LORazepam 2023-0 Yes [id number] 1mg Take 1 [facility] (ATIVAN) 1 2-28 tablet by ity of mg tablet 00:00: mouth 2 [place] 00 (two) Medical times Branch daily as needed for Anxiety or Agitation. hydrOXYzine 2023-0 Yes [id number] 25mg Take 1 [facility] (VISTARIL) 2-28 capsule by ity of 25 mg 00:00: mouth 3 [place] capsule 00 (three) Medical times Branch daily as needed for Anxiety. LORazepam 2023-0 Yes [id number] 1mg Take 1 [facility] (ATIVAN) 1 2-28 tablet by ity of mg tablet 00:00: mouth 2 [place] 00 (two) Medical times Branch daily as needed for Anxiety or Agitation. hydrOXYzine 2023-0 Yes [id number] 25mg Take 1 [facility] (VISTARIL) 2-28 capsule by ity of 25 mg 00:00: mouth 3 [place] capsule 00 (three) Medical times Branch daily as needed for Anxiety. LORazepam 2023-0 Yes [id number] 1mg Take 1 [facility] (ATIVAN) 1 2-28 tablet by ity of mg tablet 00:00: mouth 2 [place] 00 (two) Medical times Branch daily as needed for Anxiety or Agitation. hydrOXYzine 2023-0 Yes [id number] 25mg Take 1 [facility] (VISTARIL) 2-28 capsule by ity of 25 mg 00:00: mouth 3 [place] capsule 00 (three) Medical times Branch daily as needed for Anxiety. LORazepam 2023-0 Yes [id number] 1mg Take 1 [facility]ivers (ATIVAN) 1 2-28 tablet by ity of mg tablet 00:00: mouth 2 [place] 00 (two) Medical times Branch daily as needed for Anxiety or Agitation. hydrOXYzine 2023-0 Yes [id number] 25mg Take 1 [facility] (VISTARIL) 2-28 capsule by ity of 25 mg 00:00: mouth 3 [place] capsule 00 (three) Medical times Branch daily as needed for Anxiety. hydrOXYzine 2022-0 2022- No [id number] 25mg Take 1 [facility] (VISTARIL) 2-28 06-27 capsule by it y of 25 mg 00:00: 00:00 mouth 3 [place] capsule 00 :00 (three) Medical times Branch daily as needed for Anxiety. hydrOXYzine 2022-0 2022- No [id number] 25mg Take 1 [facility] (VISTARIL) 2-28 -27 capsule by it y of 25 mg 00:00: 00:00 mouth 3 [place] capsule 00 :00 (three) Medical times [place] daily as needed for Anxiety. iopamidol 2022- No [id number] 75mL 75 mL, [facility] (ISOVUE 10-13 Intravenou ity o f 370-500 mL) 09:30: 21:29 s, ONCE, 1 [place] injection 00 :00 dose, On Medica l 75 mL [facility] 10/13/22 Branch at 0330, Routine dicyclomine 2022- No 20mg 20 mg, Uni vers (BENTYL) 10-13 Intramuscu ity of injection 09:15: 21:14 lar, ONCE, [place] 20 mg 00 :00 1 dose, On Medical [facility] 10/13/22 Branch at 0315, Routine famotidine Yes TAKE 1 Unive rs 20 mg 1-25 TABLET BY ity of tablet 00:00: MOUTH IN [place] [address] THE [facility] MORNING Branch AND IN THE EVENING FOR 5 DAYS famotidine 2022-0 Yes TAKE 1 Unive rs 20 mg 1-25 TABLET BY ity of tablet 00:00: MOUTH IN [place] [address] THE [facility] MORNING Branch AND IN THE EVENING FOR 5 DAYS famotidine 2022-0 Yes TAKE 1 Unive rs 20 mg 1-25 TABLET BY ity of tablet 00:00: MOUTH IN [place] [address] THE [facility] MORNING Branch AND IN THE EVENING FOR 5 DAYS famotidine 2022-0 Yes TAKE 1 Unive rs 20 mg 1-25 TABLET BY ity of tablet 00:00: MOUTH IN [place] [address] [facility] MORNING Branch AND IN THE EVENING FOR 5 DAYS famotidine Yes TAKE 1 Unive rs 20 mg 1-25 TABLET BY ity of tablet 00:00: MOUTH IN [place] [address] THE [facility] MORNING [place] AND IN THE EVENING FOR 5 DAYS famotidine Yes TAKE 1 Unive rs 20 mg 1-25 TABLET BY ity of tablet 00:00: MOUTH IN [place] [address] THE [facility] MORNING [place] AND IN THE EVENING FOR 5 DAYS famotidine Yes TAKE 1 Unive rs 20 mg 1-25 TABLET BY ity of tablet 00:00: MOUTH IN [place] [address] THE [facility] MORNING [place] AND IN THE EVENING FOR 5 DAYS famotidine Yes TAKE 1 Unive rs 20 mg 1-25 TABLET BY ity of tablet 00:00: MOUTH IN [place] [address] THE [facility] MORNING [place] AND IN THE EVENING FOR 5 DAYS famotidine Yes TAKE 1 Unive rs 20 mg 1-25 TABLET BY ity of tablet 00:00: MOUTH IN [place] [address] THE [facility] MORNING [place] AND IN THE EVENING FOR 5 DAYS famotidine Yes TAKE 1 Unive rs 20 mg 1-25 TABLET BY ity of tablet 00:00: MOUTH IN [place] [address] THE [facility] MORNING [place] AND IN THE EVENING FOR 5 DAYS famotidine Yes TAKE 1 Unive rs 20 mg 1-25 TABLET BY ity of tablet 00:00: MOUTH IN [place] [address] THE [facility] MORNING [place] AND IN THE EVENING FOR 5 DAYS famotidine Yes TAKE 1 Unive rs 20 mg 1-25 TABLET BY ity of tablet 00:00: MOUTH IN [place] [address] THE [facility] MORNING [place] AND IN THE EVENING FOR 5 DAYS famotidine 2022- No TAKE 1 Univ ers 20 mg 1-25 05-12 TABLET BY ity of tablet 00:00: 00:00 MOUTH IN [place] 00 :00 THE [facility] MORNING [place] AND IN THE EVENING FOR 5 DAYS famotidine 2022- No 20mg 20 mg, Univ ers (PEPCID AC) 09-10 Oral, ity of tablet 20 00:30: 00:53 ONCE, 1 [place] mg 00 :[place] dose, On Wed09/09/22 Branch at 1830, LUPE dexamethaso 2022- No 10mg 10 mg, Uni vers ne sod phos 1-05 01-05 Intramuscu i ty of PF 00:30: 00:53 lar, ONCE, [place] injection 00 :00 1 dose, On Medi shanice 10 mg 09/09/22 Branch at 1830, 1 mL predniSONE 2022- No [id number] 40mg Take 2 [facility] 20 mg 09-10- tablets by ity of tablet 00:00: 05:59 mouth in [place] 00 :00 the Medical morning Branch for 5 days. famotidine 2022- No [id number] 20mg Take 1 [facility] (PEPCID) 20 -09-15 tablet by it y of mg tablet [...] 08/18/22 at 1800, Routine oseltamivir 2021-09- No [id number] 75mg Take 1 [facility] (TAMIFLU) 10-19 capsule [...] 500 mg ity of tablet 00:00: tablet [place] [facility] naproxen 2021-0 Yes naproxen Unive rs 500 mg 9-16 500 mg ity of tablet 00:00: tablet Medical Branch naproxen 2021-0 Yes naproxen Unive rs 500 mg 9-16 500 mg ity of tablet 00:00: tablet [place] [facility] naproxen 2021-0 Yes naproxen Unive rs 500 mg 9-16 500 mg ity of tablet 00:00: tablet [place] [facility] naproxen 2021-0 Yes naproxen Unive rs 500 mg 9-16 500 mg ity of tablet 00:00: tablet [place] [facility] naproxen 2021-0 Yes naproxen Unive rs 500 mg 9-16 500 mg ity of tablet 00:00: tablet [place] [facility] naproxen 2021-0 Yes naproxen Unive rs 500 mg 9-16 500 mg ity of tablet 00:00: tablet [place] [facility] naproxen 2021-0 Yes naproxen Unive rs 500 mg 9-16 500 mg ity of tablet 00:00: tablet [place] [facility] naproxen 2021-0 3- No naproxen Univ ers 500 mg 9-16 05-12 500 mg ity of tablet 00:00: 00:00 tablet [place] 00 :00 Medical Branch prazosin 2 2021-0 Yes 2mg Take 1 Unive rs mg capsule 9-15 capsule by ity of 00:00: mouth. [place] [facility] prazosin 2 2021-0 Yes 2mg Take 1 Unive rs mg capsule 9-15 capsule by ity of 00:00: mouth. [place] [facility] prazosin 2 2021-0 Yes 2mg Take 1 Unive rs mg capsule 9-15 capsule by ity of 00:00: mouth. [place] [facility] prazosin 2 2021-0 Yes 2mg Take 1 Unive rs mg capsule 9-15 capsule by ity of 00:00: mouth. [place] [facility] prazosin 2 2021-0 Yes 2mg Take 1 Unive rs mg capsule 9-15 capsule by ity of 00:00: mouth. [place] [facility] prazosin 2 2021-0 Yes 2mg [...] by it y of 00:00: 00:00 mouth. [place] 00 :00 Medical Branch naloxone 4 2021-0 [...] patch 00 patch Medical Branch naloxone 4 2022- No CALL 911. U nivers mg/actuatio [...] -acetaminop 5-17 05-[address] [facility] ([facility]) 13:50: 00:00 mouth [facility] 10-325 mg 15 :00 every 6 l per tablet (six) hours as needed .acute pain. prn HYDROcodone 2021-0 2021- No [id number] 1{tbl} Q6H Take 1 [facility]i -acetaminop 5-17 05-[address] [facility] (Uns[facility]) 13:50: 00:00 mouth [facility] 10-325 mg 15 :00 every 6 l per tablet (six) hours as needed .acute pain. prn HYDROcodone 2021- No [id number] 1{tbl} Q6H Take 1 [facility] -acetaminop 5-17 05-[address] [facility] (Unsilo) 13:50: 00:00 mouth [facility] 10-325 mg 15 :00 every 6 l per tablet (six) hours as needed .acute pain. prn [place] 2021-2021- [place] [id number] 1{tbl} Q6H Take 1 [facility] -acetaminop 5-17 05-[address] [facility]) 13:50: 00:00 mouth [facility] 10-325 mg 15 :00 every 6 l per tablet (six) hours as needed .acute pain. prn [place]Ocodone 2021-2021- [place] [id number] 1{tbl} Q6H Take 1 [facility]i -acetaminop 5-17 05-[address] [facility] ([place]) 13:50: 00:00 mouth [facility] 10-325 mg [...] 7 l days. cyclobenzap 2022-0 Yes 10mg Q.[id number] Take 10 mg Methodi rine 5-[id number] mouth [address] (FLEXERIL) 13:09: 3D [...] hours as needed. cyclobenzap 2022-0 Yes 10mg Q.[id number] Take 10 mg Methodi rine 5-17 [id number] [address] [facility] [address] (FLEXERIL) 13:09: 3D [...] hours as needed. cyclobenzap 2022-0 Yes 10mg Q.[id number] Take 10 mg Methodi rine 5-17 [id number] [facility] [address] (FLEXERIL) 13:09: 3D [...] hours as needed. cyclobenzap 2022-0 Yes 10mg Q.[id number] Take 10 mg Methodi rine 5-17 [id number] [facility] [address] (FLEXERIL) 13:09: 3D [...] hours as needed. cyclobenzap 2022-0 Yes 10mg Q.[id number] Take 10 mg Methodi rine 5-17 [id number] [facility] [address] (FLEXERIL) 13:09: 3D [...] hours as needed. cyclobenzap 2022-0 Yes 10mg Q.[id number] Take 10 mg Methodi rine 5-17 [id number] [facility] [address] (FLEXERIL) 13:09: 3D [...] hours as needed. cyclobenzap 2022-0 Yes 10mg Q.[id number] Take 10 mg Methodi rine 5-17 [id number] [facility] [address] (FLEXERIL) 13:09: 3D [...] hours as needed. cyclobenzap 2022-0 Yes 10mg Q.[id number] Take 10 mg Methodi rine 5-17 [id number] mouth [address] (FLEXERIL) 13:09: 3D [...] hours as needed. cyclobenzap 2022-0 Yes 10mg Q.[id number] Take 10 mg Methodi rine 5-17 [id number] [address] [facility] [address] (FLEXERIL) 13:09: 3D [...] hours as needed. cyclobenzap 2022-0 Yes 10mg Q.[id number] Take 10 mg Methodi rine 5-17 [id number] [facility] [address] (FLEXERIL) 13:09: 3D [...] hours as needed. cyclobenzap 2022-0 Yes 10mg Q.[id number] Take 10 mg Methodi rine 5-17 [id number] [address] [facility] [address] (FLEXERIL) 13:09: 3D [...] hours as needed. cyclobenzap 2022-0 Yes 10mg Q.[id number] Take 10 mg Methodi rine 5-17 [id number] [facility] [address] (FLEXERIL) 13:09: 3D [...] hours as needed. cyclobenzap 2022-0 Yes 10mg Q.[id number] Take 10 mg Methodi rine 5-17 [id number] [facility] [address] (FLEXERIL) 13:09: 3D [...] hours as needed. cyclobenzap 2022-0 Yes 10mg Q.[id number] Take 10 mg Methodi rine 5-17 [id number] [facility] [address] (FLEXERIL) 13:09: 3D [...] hours as needed. cyclobenzap 2022-0 Yes 10mg Q.26788409 Take 10 mg Methodi rine 5-17 [id number] [facility] [address] (FLEXERIL) 13:09: 3D [...] hours as needed. cyclobenzap 2022-0 Yes 10mg Q.[id number] Take 10 mg Methodi rine 5-17 [id number] [facility] [address] (FLEXERIL) 13:09: 3D [...] hours as needed. cyclobenzap 2022-0 Yes 10mg Q.23545813 Take 10 mg Methodi rine 5-17 [id number] [address] [facility] [address] (FLEXERIL) 13:09: 3D [...] hours as needed. cyclobenzap 2022-0 Yes 10mg Q.81421005 Take 10 mg [facility]i rine 5-17 [id number] [address] [facility] [address] (FLEXERIL) 13:09: 3D [...] hours as needed. cyclobenzap 2022-0 Yes 10mg Q.[id number] Take 10 mg Methodi rine 5-17 [id number] [facility] [address] (FLEXERIL) 13:09: 3D [...] hours as needed. cyclobenzap 2022-0 Yes 10mg Q.[id number] Take 10 mg Methodi rine 5-17 [id number] [address] [facility] [address] (FLEXERIL) 13:09: 3D [...] hours as needed. cyclobenzap 2022-0 Yes 10mg Q.[id number] Take 10 mg Methodi rine 5-17 [id number] [facility] [address] (FLEXERIL) 13:09: 3D [...] (twelve) hours as needed. cyclobenzap Yes 10mg Q.[id number] Take 10 mg Methodi rine 5-17 [id number] [facility] [address] (FLEXERIL) 13:09: 3D (three) [facility] 10 mg 39 times a l tablet day as needed for muscle spasms. HYDROcodone 2021-0 2021- No [id number] 1{tbl} Q6H Take 1 [facility] -acetaminop 5-17 06-[address] [facility] ([place]) 00:00: 04:59 mouth [facility] 10-325 mg 00 :00 every 6 l per tablet (six) hours as needed for severe pain for up to 30 days .chronic pain. prn Max Daily Amount: 4 tablets HYDROcodone 2021-0 2021- No [id number] 1{tbl} Q6H Take 1 [facility] -acetaminop 5-17 06-[address] [facility] ([facility]) 00:00: 04:59 mouth [facility] 10-325 mg 00 :00 every 6 l per tablet (six) hours as needed for severe pain for up to 30 days .chronic pain. prn Max Daily Amount: 4 tablets HYDROcodone 2021-0 2021- No [id number] 1{tbl} Q6H Take 1 [facility] -acetaminop 5-17 06-[address] [facility] ([facility]) 00:00: 04:59 mouth [facility] 10-325 mg 00 :00 every 6 l per tablet (six) hours as needed for severe pain for up to 30 days .chronic pain. prn Max Daily Amount: 4 tablets HYDROcodone 2021-0 2021- No [id number] 1{tbl} Q6H Take 1 [facility] -acetaminop 5-17 06-[address] [facility] ([facility]) 00:00: 04:59 mouth [facility] 10-325 mg 00 :00 every 6 l per tablet (six) hours as needed for severe pain for up to 30 days .chronic pain. prn Max Daily Amount: 4 tablets HYDROcodone 2-0 2021- No [id number] 1{tbl} Q6H Take 1 [facility] -acetaminop 5-17 06-[address] [facility] ([facility]) 00:00: 04:59 mouth [facility] 10-325 mg 00 :00 every 6 l per tablet (six) hours as needed for severe pain for up to 30 days .chronic pain. prn Max Daily Amount: 4 tablets HYDROcodone 2021-0 2021- [place] [id number] 1{tbl} Q6H Take 1 [facility] -acetaminop 5-17 06-[address] [facility] ([facility]) 00:00: 04:59 mouth [facility] 10-325 mg 00 :00 every 6 l per tablet (six) hours as needed for severe pain for up to 30 days .chronic pain. prn Max Daily Amount: 4 tablets HYDROcodone 2021-0 2021- No [id number] 1{tbl} Q6H Take 1 [facility] -acetaminop 5-17 06-[address] [facility] ([facility]) 00:00: 04:59 mouth [facility] 10-325 mg 00 :00 every 6 l per tablet (six) hours as needed for severe pain for up to 30 days .chronic pain. prn Max Daily Amount: 4 tablets diazePAM 2021- No 10mg Q6H Take 10 mg [facility] (VALIUM) 10 10-[address] [facility] tablet 16:12: 00:00 every 6 [facility] 01 :00 (six) l hours as needed. [...] up to 60 days. diazePAM 2020-09- No [id number] 10mg Q12H Take 1 [facility] (VALIUM) 10 10-15 tablet (10 s t MG tablet 00:00: 05:59 mg total) [facility] 00 :00 by mouth l every 12 (twelve) hours as needed for anxiety for up to 30 days. diazePAM 2020-09- No [id number] 10mg Q12H Take 1 [facility] (VALIUM) 10 10-15 tablet (10 s t MG tablet 00:00: 05:59 mg total) [facility] 00 :00 by mouth l every 12 (twelve) hours as needed for anxiety for up to 30 days. diazePAM 2020-09- No [id number] 10mg Q12H Take 1 [facility] (VALIUM) 10 10-15- tablet (10 s t MG tablet 00:00: 05:59 mg total) [facility] 00 :00 by mouth l every 12 (twelve) hours as needed for anxiety for up to 30 days. diazePAM 2020-09- No [id number] 10mg Q12H Take 1 [facility] (VALIUM) [...] as needed for anxiety. diazePAM 2020-09- No [id number] 10mg Q12H Take 1 [facility] (VALIUM) 10 09-09 12-05 tablet (10 s t MG tablet 00:00: 05:59 mg total) [facility] 00 :00 by mouth l every 12 (twelve) hours as needed for anxiety for up to 30 days. diazePAM 2020-09- No [id number] 10mg Q12H Take 1 [facility] (VALIUM) 10 09-09 12-05 tablet (10 s t MG tablet 00:00: 05:59 mg total) [facility] 00 :00 by mouth l every 12 (twelve) hours as needed for anxiety for up to 30 days. diazePAM 2020-09- No [id number] 10mg Q12H Take 1 [facility] (VALIUM) 10 09-09 12-05 tablet (10 s t MG tablet 00:00: 05:59 mg total) [facility] 00 :00 by mouth l every 12 (twelve) hours as needed for anxiety for up to 30 days. diazePAM 2020-09- No [id number] 10mg Q12H Take 1 [facility] (VALIUM) 10 09-09 12-05 tablet (10 s t MG tablet 00:00: 05:59 mg total) [facility] 00 :00 by mouth l every 12 (twelve) hours as needed for anxiety for up to 30 days. azithromyci 2020-09- No [id number] 250mg QD Take 1 [facility] n 0-[address] (Zithromax 00:00: 00:00 (250 mg [facility] Z-Ok) 250 00 :00 total) by l MG tablet mouth daily. Take 2 tablets the first day, then 1 tablet daily for 4 days. pantoprazol 0 Yes [id number] 40mg Take 1 [facility] e 4-18 tablet by ity of (PROTONIX) 00:00: mouth [place] 40 mg EC 00 daily. [facility] tablet [facility] dicyclomine 0 Yes [id number] 20mg Take 1 [facility] by [facility] tablet 00:00: mouth [place] 00 every 6 [facility] (six) Branch hours as needed for Abdominal pain. ondansetron 0 Yes [id number] 4mg Take 1 [facility] (ZO[facility]) 4 4-18 tablet by [facility] mg tablet 00:00: mouth [place] 00 every 8 [facility] (eight) Branch hours as needed for Nausea and Vomiting (N/V). pantoprazol 0 Yes [id number] 40mg Take 1 [facility] 4-18 tablet by [facility] (PROTONIX) 00:00: mouth [place] 40 mg EC 00 daily. [facility] tablet [facility] dicyclomine Yes [id number] 20mg Take 1 [facility] 20 mg 4-18 tablet by [facility] tablet 00:00: mouth [place] 00 every 6 Medical (six) Branch hours as needed for Abdominal pain. ondansetron 2020-0 Yes [id number] 4mg Take 1 [facility] ([facility]) 4 4-18 tablet by [facility] mg tablet 00:00: mouth [place] 00 every 8 Medical (eight) Branch hours as needed for Nausea and Vomiting (N/V). pantoprazol 2020-0 Yes [id number] 40mg Take 1 [facility] 4-18 tablet by [facility] (PROTONIX) 00:00: mouth [place] 40 mg EC 00 daily. [facility] tablet [facility] dicyclomine 2020-0 Yes [id number] 20mg Take 1 [facility] 20 mg 4-18 tablet by [facility] tablet 00:00: mouth [place] 00 every 6 Medical (six) Branch hours as needed for Abdominal pain. ondansetron 2020-0 Yes [id number] 4mg Take 1 [facility] ([facility]) 4 4-18 tablet by [facility] mg tablet 00:00: mouth [place] 00 every 8 [facility] (eight) Branch hours as needed for Nausea and Vomiting (N/V). pantoprazol 2020-0 Yes [id number] 40mg Take 1 [facility] 4-18 tablet by [facility] (PROTONIX) 00:00: mouth [place] 40 mg EC 00 daily. [facility] tablet [facility] dicyclomine 2020-0 Yes [id number] 20mg Take 1 [facility] 20 mg 4-18 tablet by [facility] tablet 00:00: mouth [place] 00 every 6 Medical (six) Branch hours as needed for Abdominal pain. ondansetron 2020-0 Yes [id number] 4mg Take 1 [facility] ([facility]) 4 4-18 tablet by [facility] mg tablet 00:00: mouth [place] 00 every 8 Medical (eight) Branch hours as needed for Nausea and Vomiting (N/V). pantoprazol 2020-0 Yes [id number] 40mg Take 1 [facility] 4-18 tablet by [facility] (PROTONIX) 00:00: mouth [place] 40 mg EC 00 daily. [facility] tablet [facility] dicyclomine 2020-0 Yes [id number] 20mg Take 1 [facility] 20 mg 4-18 tablet by [facility] tablet 00:00: mouth [place] 00 every 6 Medical (six) Branch hours as needed for Abdominal pain. ondansetron 2020-0 Yes [id number] 4mg Take 1 [facility] ([facility]) 4 4-18 tablet by [facility] mg tablet 00:00: mouth [place] 00 every 8 Medical (eight) Branch hours as needed for Nausea and Vomiting (N/V). pantoprazol 2020-0 Yes [id number] 40mg Take 1 [facility] 4-18 tablet by [facility] (PROTONIX) 00:00: mouth [place] 40 mg EC 00 daily. [facility] tablet [facility] dicyclomine 2020-0 Yes [id number] 20mg Take 1 [facility] 20 mg 4-18 tablet by [facility] tablet 00:00: mouth [place] 00 every 6 Medical (six) Branch hours as needed for Abdominal pain. ondansetron 2020-0 Yes [id number] 4mg Take 1 [facility] ([facility]) 4 4-18 tablet by [facility] mg tablet 00:00: mouth [place] 00 every 8 Medical (eight) Branch hours as needed for Nausea and Vomiting (N/V). pantoprazol 2020-0 Yes [id number] 40mg Take 1 [facility] 4-18 tablet by [facility] (PROTONIX) 00:00: mouth [place] 40 mg EC 00 daily. [facility] tablet [facility] dicyclomine 2020-0 Yes [id number] 20mg Take 1 [facility] 20 mg 4-18 tablet by [facility] tablet 00:00: mouth [place] 00 every 6 Medical (six) Branch hours as needed for Abdominal pain. ondansetron 2020-0 Yes [id number] 4mg Take 1 [facility] ([facility]) 4 4-18 tablet by [facility] mg tablet 00:00: mouth [place] 00 every 8 Medical (eight) Branch hours as needed for Nausea and Vomiting (N/V). pantoprazol 2020-0 Yes [id number] 40mg Take 1 [facility] 4-18 tablet by [facility] (PROTONIX) 00:00: mouth [place] 40 mg EC 00 daily. [facility] tablet [facility] dicyclomine 2020-0 Yes [id number] 20mg Take 1 [facility] 20 mg 4-18 tablet by [facility] tablet 00:00: mouth [place] 00 every 6 Medical (six) Branch hours as needed for Abdominal pain. ondansetron 2020-0 Yes [id number] 4mg Take 1 [facility] ([facility]) 4 4-18 tablet by [facility] mg tablet 00:00: mouth [place] 00 every 8 Medical (eight) Branch hours as needed for Nausea and Vomiting (N/V). pantoprazol 2020-0 Yes [id number] 40mg Take 1 [facility] 4-18 tablet by [facility] (PROTONIX) 00:00: mouth [place] 40 mg EC 00 daily. [facility] tablet [facility] dicyclomine 2020-0 Yes [id number] 20mg Take 1 [facility] 20 mg 4-18 tablet by [facility] tablet 00:00: mouth [place] 00 every 6 Medical (six) Branch hours as needed for Abdominal pain. ondansetron 2020-0 Yes [id number] 4mg Take 1 [facility] (ZOFR[facility]) 4 4-18 tablet by [facility] mg tablet 00:00: mouth [place] 00 every 8 Medical (eight) Branch hours as needed for Nausea and Vomiting (N/V). pantoprazol 2020-0 Yes [id number] 40mg Take 1 [facility] 4-18 tablet by [facility] (PROTONIX) 00:00: mouth [place] 40 mg EC 00 daily. [facility] tablet [facility] dicyclomine 2020-0 Yes [id number] 20mg Take 1 [facility] 20 mg 4-18 tablet by [facility] tablet 00:00: mouth [place] 00 every 6 Medical (six) Branch hours as needed for Abdominal pain. ondansetron 2020-0 Yes [id number] 4mg Take 1 [facility] ([facility]) 4 4-18 tablet by [facility] mg tablet 00:00: mouth [place] 00 every 8 Medical (eight) Branch hours as needed for Nausea and Vomiting (N/V). pantoprazol 2020-0 Yes [id number] 40mg Take 1 [facility] 4-18 tablet by [facility] (PROTONIX) 00:00: mouth [place] 40 mg EC 00 daily. [facility] tablet [facility] dicyclomine 2020-0 Yes [id number] 20mg Take 1 [facility] 20 mg 4-18 tablet by [facility] tablet 00:00: mouth [place] 00 every 6 Medical (six) Branch hours as needed for Abdominal pain. ondansetron 2020-0 Yes [id number] 4mg Take 1 [facility] ([facility]) 4 4-18 tablet by [facility] mg tablet 00:00: mouth [place] 00 every 8 Medical (eight) Branch hours as needed for Nausea and Vomiting (N/V). pantoprazol 2020-0 Yes [id number] 40mg Take 1 [facility] e 4-18 tablet by [facility] (PROTONIX) 00:00: mouth [place] 40 mg EC 00 daily. [facility] tablet [facility] dicyclomine 2020-0 Yes [id number] 20mg Take 1 [facility] 20 mg 4-18 tablet by [facility] tablet 00:00: mouth [place] 00 every 6 Medical (six) Branch hours as needed for Abdominal pain. ondansetron 2020-0 Yes [id number] 4mg Take 1 [facility] ([facility]) 4 4-18 tablet by [facility] mg tablet 00:00: mouth [place] 00 every 8 Medical (eight) Branch hours as needed for Nausea and Vomiting (N/V). pantoprazol 2020-0 Yes [id number] 40mg Take 1 [facility] e 4-18 tablet by [facility] (PROTONIX) 00:00: mouth [place] 40 mg EC 00 daily. [facility] tablet [facility] dicyclomine 2020-0 Yes [id number] 20mg Take 1 [facility] 20 mg 4-18 tablet by [facility] tablet 00:00: mouth [place] 00 every 6 Medical (six) Branch hours as needed for Abdominal pain. ondansetron 2020-0 Yes [id number] 4mg Take 1 [facility] ([facility]) 4 4-18 tablet by [facility] mg tablet 00:00: mouth [place] 00 every 8 Medical (eight) Branch hours as needed for Nausea and Vomiting (N/V). pantoprazol 2020-0 Yes [id number] 40mg Take 1 [facility] 4-18 tablet by [facility] (PROTONIX) 00:00: mouth [place] 40 mg EC 00 daily. [facility] tablet [facility] dicyclomine 2020-0 Yes [id number] 20mg Take 1 [facility] 20 mg 4-18 tablet by [facility] tablet 00:00: mouth [place] 00 every 6 Medical (six) Branch hours as needed for Abdominal pain. ondansetron 2020-0 Yes [id number] 4mg Take 1 [facility] ([facility]) 4 4-18 tablet by [facility] mg tablet 00:00: mouth [place] 00 every 8 Medical (eight) Branch hours as needed for Nausea and Vomiting (N/V). pantoprazol 2020-0 Yes [id number] 40mg Take 1 [facility] 4-18 tablet by [facility] (PROTONIX) 00:00: mouth [place] 40 mg EC 00 daily. [facility] tablet [facility] dicyclomine 2020-0 Yes [id number] 20mg Take 1 [facility] 20 mg 4-18 tablet by [facility] tablet 00:00: mouth [place] 00 every 6 Medical (six) Branch hours as needed for Abdominal pain. ondansetron 2020-0 Yes [id number] 4mg Take 1 [facility] ([facility]) 4 4-18 tablet by [facility] mg tablet 00:00: mouth [place] 00 every 8 Medical (eight) Branch hours as needed for Nausea and Vomiting (N/V). pantoprazol 2020-0 Yes [id number] 40mg Take 1 [facility] 4-18 tablet by [facility] (PROTONIX) 00:00: mouth [place] 40 mg EC 00 daily. [facility] tablet [facility] dicyclomine 2020-0 Yes [id number] 20mg Take 1 [facility] 20 mg 4-18 tablet by [facility] tablet 00:00: mouth [place] 00 every 6 Medical (six) Branch hours as needed for Abdominal pain. ondansetron 2020-0 Yes [id number] 4mg Take 1 [facility] ([facility]) 4 4-18 tablet by [facility] mg tablet 00:00: mouth [place] 00 every 8 Medical (eight) Branch hours as needed for Nausea and Vomiting (N/V). pantoprazol 2020-0 Yes [id number] 40mg Take 1 [facility] e 4-18 tablet by [facility] (PROTONIX) 00:00: mouth [place] 40 mg EC 00 daily. [facility] tablet [facility] dicyclomine 2020-0 Yes [id number] 20mg Take 1 [facility] 20 mg 4-18 tablet by [facility] tablet 00:00: mouth [place] 00 every 6 Medical (six) Branch hours as needed for Abdominal pain. ondansetron 2020-0 Yes [id number] 4mg Take 1 [facility] ([facility]) 4 4-18 tablet by [facility] mg tablet 00:00: mouth [place] 00 every 8 Medical (eight) Branch hours as needed for Nausea and Vomiting (N/V). pantoprazol 2020-0 Yes [id number] 40mg Take 1 [facility] e 4-18 tablet by [facility] (PROTONIX) 00:00: mouth [place] 40 mg EC 00 daily. [facility] tablet [facility] dicyclomine 2020-0 Yes [id number] 20mg Take 1 [facility] 20 mg 4-18 tablet by [facility] tablet 00:00: mouth [place] 00 every 6 Medical (six) Branch hours as needed for Abdominal pain. ondansetron 2020-0 Yes [id number] 4mg Take 1 [facility] ([facility]FR[facility]) 4 4-18 tablet by [facility] mg tablet 00:00: mouth [place] 00 every 8 Medical (eight) Branch hours as needed for Nausea and Vomiting (N/V). pantoprazol 2020-0 Yes [id number] 40mg Take 1 [facility] e 4-18 tablet by [facility] (PROTONIX) 00:00: mouth [place] 40 mg EC 00 daily. [facility] tablet [facility] dicyclomine 2020-0 Yes [id number] 20mg Take 1 [facility] 20 mg 4-18 tablet by [facility] tablet 00:00: mouth [place] 00 every 6 Medical (six) Branch hours as needed for Abdominal pain. ondansetron 2020-0 Yes [id number] 4mg Take 1 [facility] ([facility]) 4 4-18 tablet by [facility] mg tablet 00:00: mouth [place] 00 every 8 Medical (eight) Branch hours as needed for Nausea and Vomiting (N/V). pantoprazol 2020-0 Yes [id number] 40mg Take 1 [facility] e 4-18 tablet by [facility] (PROTONIX) 00:00: mouth [place] 40 mg EC 00 daily. [facility] tablet [facility] dicyclomine 2020-0 Yes [id number] 20mg Take 1 [facility] 20 mg 4-18 tablet by [facility] tablet 00:00: mouth [place] 00 every 6 Medical (six) Branch hours as needed for Abdominal pain. ondansetron 2020-0 Yes [id number] 4mg Take 1 [facility] ([facility]) 4 4-18 tablet by [facility] mg tablet 00:00: mouth [place] 00 every 8 Medical (eight) Branch hours as needed for Nausea and Vomiting (N/V). pantoprazol 2020-0 Yes [id number] 40mg Take 1 [facility] e 4-18 tablet by [facility] (PROTONIX) 00:00: mouth [place] 40 mg EC 00 daily. [facility] tablet [facility] dicyclomine 2020-0 Yes [id number] 20mg Take 1 [facility] 20 mg 4-18 tablet by [facility] tablet 00:00: mouth [place] 00 every 6 Medical (six) Branch hours as needed for Abdominal pain. ondansetron 2020-0 Yes [id number] 4mg Take 1 [facility] (ZOFR[facility]) 4 4-18 tablet by [facility] mg tablet 00:00: mouth [place] 00 every 8 Medical (eight) Branch hours as needed for Nausea and Vomiting (N/V). pantoprazol 2020-0 Yes [id number] 40mg Take 1 [facility] e 4-18 tablet by [facility] (PROTONIX) 00:00: mouth [place] 40 mg EC 00 daily. [facility] tablet [facility] dicyclomine 2020-0 Yes [id number] 20mg Take 1 [facility] 20 mg 4-18 tablet by [facility] tablet 00:00: mouth [place] 00 every 6 Medical (six) Branch hours as needed for Abdominal pain. ondansetron 2020-0 Yes [id number] 4mg Take 1 [facility] ([facility]FR[facility]) 4 4-18 tablet by [facility] mg tablet 00:00: mouth [place] 00 every 8 Medical (eight) Branch hours as needed for Nausea and Vomiting (N/V). pantoprazol 2020-0 Yes [id number] 40mg Take 1 [facility] e 4-18 tablet by [facility] (PROTONIX) 00:00: mouth [place] 40 mg EC 00 daily. [facility] tablet Branch dicyclomine 2020-0 Yes [id number] 20mg Take 1 [facility] 20 mg 4-18 tablet by [facility] tablet 00:00: mouth [place] 00 every 6 Medical (six) Branch hours as needed for Abdominal pain. ondansetron 2020-0 Yes [id number] 4mg Take 1 [facility] (ZOFR[facility]) 4 4-18 tablet by [facility] mg tablet 00:00: mouth [place] 00 every 8 Medical (eight) Branch hours as needed for Nausea and Vomiting (N/V). pantoprazol 2020-0 Yes [id number] 40mg Take 1 [facility] e 4-18 tablet by [facility] (PROTONIX) 00:00: mouth [place] 40 mg EC 00 daily. [facility] tablet [facility] dicyclomine 2020-0 Yes [id number] 20mg Take 1 [facility] 20 mg 4-18 tablet by [facility] tablet 00:00: mouth [place] 00 every 6 Medical (six) Branch hours as needed for Abdominal pain. ondansetron 2020-0 Yes [id number] 4mg Take 1 [facility] (ZOFR[facility]) 4 4-18 tablet by [facility] mg tablet 00:00: mouth [place] 00 every 8 Medical (eight) Branch hours as needed for Nausea and Vomiting (N/V). pantoprazol 2020-0 Yes [id number] 40mg Take 1 [facility] e 4-18 tablet by [facility] (PROTONIX) 00:00: mouth [place] 40 mg EC 00 daily. [facility] tablet Branch dicyclomine 2020-0 Yes [id number] 20mg Take 1 [facility] 20 mg 4-18 tablet by [facility] tablet 00:00: mouth [place] 00 every 6 Medical (six) Branch hours as needed for Abdominal pain. pantoprazol 2020-0 Yes [id number] 40mg Take 1 [facility] e 4-18 tablet by [facility] (PROTONIX) 00:00: mouth [place] 40 mg EC 00 daily. [facility] tablet Branch dicyclomine 2020-0 Yes [id number] 20mg Take 1 [facility] 20 mg 4-18 tablet by [facility] tablet 00:00: mouth [place] 00 every 6 Medical (six) Branch hours as needed for Abdominal pain. pantoprazol 2020-0 Yes [id number] 40mg Take 1 [facility] e 4-18 tablet by [facility] (PROTONIX) 00:00: mouth [place] 40 mg EC 00 daily. [facility] tablet [facility] dicyclomine 2020-0 Yes [id number] 20mg Take 1 [facility] 20 mg 4-18 tablet by [facility] tablet 00:00: mouth [place] 00 every 6 Medical (six) Branch hours as needed for Abdominal pain. pantoprazol 2020-0 Yes [id number] 40mg Take 1 [facility] e 4-18 tablet by [facility] (PROTONIX) 00:00: mouth [place] 40 mg EC 00 daily. [facility] tablet [facility] dicyclomine 2020-0 Yes [id number] 20mg Take 1 [facility] 20 mg 4-18 tablet by [facility] tablet 00:00: mouth [place] 00 every 6 Medical (six) Branch hours as needed for Abdominal pain. pantoprazol 2020-0 Yes [id number] 40mg Take 1 [facility] e 4-18 tablet by [facility] (PROTONIX) 00:00: mouth [place] 40 mg EC 00 daily. [facility] tablet [facility] dicyclomine 2020-0 Yes [id number] 20mg Take 1 [facility] 20 mg 4-18 tablet by [facility] tablet 00:00: mouth [place] 00 every 6 Medical (six) Branch hours as needed for Abdominal pain. pantoprazol 2020-0 Yes [id number] 40mg Take 1 [facility] e 4-18 tablet by [facility] (PROTONIX) 00:00: mouth [place] 40 mg EC 00 daily. [facility] tablet Branch dicyclomine 2020-0 Yes [id number] 20mg Take 1 [facility] 20 mg 4-18 tablet by [facility] tablet 00:00: mouth [place] 00 every 6 Medical (six) Branch hours as needed for Abdominal pain. pantoprazol 2020-0 Yes [id number] 40mg Take 1 [facility] e 4-18 tablet by [facility] (PROTONIX) 00:00: mouth [place] 40 mg EC 00 daily. [facility] tablet Branch dicyclomine 2020-0 Yes [id number] 20mg Take 1 [facility] 20 mg 4-18 tablet by [facility] tablet 00:00: mouth [place] 00 every 6 Medical (six) Branch hours as needed for Abdominal pain. pantoprazol 2020-0 Yes [id number] 40mg Take 1 [facility] e 4-18 tablet by [facility] (PROTONIX) 00:00: mouth [place] 40 mg EC 00 daily. [facility] tablet [facility] dicyclomine 2020-0 Yes [id number] 20mg Take 1 [facility] 20 mg 4-18 tablet by [facility] tablet 00:00: mouth [place] 00 every 6 Medical (six) Branch hours as needed for Abdominal pain. pantoprazol 2020-0 Yes [id number] 40mg Take 1 [facility] e 4-18 tablet by [facility] (PROTONIX) 00:00: mouth [place] 40 mg EC 00 daily. [facility] tablet Branch dicyclomine 2020-0 Yes [id number] 20mg Take 1 [facility] 20 mg 4-18 tablet by [facility] tablet 00:00: mouth [place] 00 every 6 Medical (six) Branch hours as needed for Abdominal pain. pantoprazol 2020-0 Yes [id number] 40mg Take 1 [facility] e 4-18 tablet by [facility] (PROTONIX) 00:00: mouth [place] 40 mg EC 00 daily. [facility] tablet Branch dicyclomine 2020-0 Yes [id number] 20mg Take 1 [facility] 20 mg 4-18 tablet by [facility] tablet 00:00: mouth [place] 00 every 6 Medical (six) Branch hours as needed for Abdominal pain. pantoprazol 2020-0 Yes [id number] 40mg Take 1 [facility] e 4-18 tablet by [facility] (PROTONIX) 00:00: mouth [place] 40 mg EC 00 daily. [facility] tablet Branch dicyclomine 2020-0 Yes [id number] 20mg Take 1 [facility] 20 mg 4-18 tablet by [facility] tablet 00:00: mouth [place] 00 every 6 Medical (six) Branch hours as needed for Abdominal pain. pantoprazol 2020-0 Yes [id number] 40mg Take 1 [facility] e 4-18 tablet by [facility] (PROTONIX) 00:00: mouth [place] 40 mg EC 00 daily. [facility] tablet [facility] dicyclomine 2020-0 Yes [id number] 20mg Take 1 [facility] 20 mg 4-18 tablet by [facility] tablet 00:00: mouth [place] 00 every 6 Medical (six) Branch hours as needed for Abdominal pain. pantoprazol 2020-0 Yes [id number] 40mg Take 1 [facility] e 4-18 tablet by [facility] (PROTONIX) 00:00: mouth [place] 40 mg EC 00 daily. [facility] tablet [facility] dicyclomine 2020-0 Yes [id number] 20mg Take 1 [facility] 20 mg 4-18 tablet by [facility] tablet 00:00: mouth [place] 00 every 6 Medical (six) Branch hours as needed for Abdominal pain. pantoprazol 2020-0 Yes [id number] 40mg Take 1 [facility] e 4-18 tablet by [facility] (PROTONIX) 00:00: mouth [place] 40 mg EC 00 daily. [facility] tablet Branch dicyclomine 2020-0 Yes [id number] 20mg Take 1 [facility] 20 mg 4-18 tablet by [facility] tablet 00:00: mouth [place] 00 every 6 Medical (six) Branch hours as needed for Abdominal pain. pantoprazol 2020-0 Yes [id number] 40mg Take 1 [facility] e 4-18 tablet by [facility] (PROTONIX) 00:00: mouth [place] 40 mg EC 00 daily. [facility] tablet Branch dicyclomine 2020-0 Yes [id number] 20mg Take 1 [facility] 20 mg 4-18 tablet by [facility] tablet 00:00: mouth [place] 00 every 6 Medical (six) Branch hours as needed for Abdominal pain. pantoprazol 2020-0 Yes [id number] 40mg Take 1 [facility] e 4-18 tablet by [facility] (PROTONIX) 00:00: mouth [place] 40 mg EC 00 daily. [facility] tablet [facility] dicyclomine 2020-0 Yes [id number] 20mg Take 1 [facility] 20 mg 4-18 tablet by [facility] tablet 00:00: mouth [place] 00 every 6 Medical (six) Branch hours as needed for Abdominal pain. pantoprazol 2020-0 Yes [id number] 40mg Take 1 [facility] e 4-18 tablet by [facility] (PROTONIX) 00:00: mouth [place] 40 mg EC 00 daily. [facility] tablet [facility] dicyclomine 2020-0 Yes [id number] 20mg Take 1 [facility] 20 mg 4-18 tablet by [facility] tablet 00:00: mouth [place] 00 every 6 Medical (six) Branch hours as needed for Abdominal pain. pantoprazol 2020-0 Yes [id number] 40mg Take 1 [facility] e 4-18 tablet by [facility] (PROTONIX) 00:00: mouth [place] 40 mg EC 00 daily. [facility] tablet [facility] dicyclomine 2020-0 Yes [id number] 20mg Take 1 [facility] 20 mg 4-18 tablet by [facility] tablet 00:00: mouth [place] 00 every 6 Medical (six) Branch hours as needed for Abdominal pain. pantoprazol 2020-0 Yes [id number] 40mg Take 1 [facility] e 4-18 tablet by [facility] (PROTONIX) 00:00: mouth [place] 40 mg EC 00 daily. [facility] tablet Branch dicyclomine 2020-0 Yes [id number] 20mg Take 1 [facility] 20 mg 4-18 tablet by [facility] tablet 00:00: mouth [place] 00 every 6 Medical (six) Branch hours as needed for Abdominal pain. pantoprazol 2020-0 Yes [id number] 40mg Take 1 [facility] e 4-18 tablet by [facility] (PROTONIX) 00:00: mouth [place] 40 mg EC 00 daily. [facility] tablet Branch dicyclomine 2020-0 Yes [id number] 20mg Take 1 [facility] 20 mg 4-18 tablet by [facility] tablet 00:00: mouth [place] 00 every 6 Medical (six) Branch hours as needed for Abdominal pain. pantoprazol 2020-0 Yes [id number] 40mg Take 1 [facility] e 4-18 tablet by [facility] (PROTONIX) 00:00: mouth [place] 40 mg EC 00 daily. [facility] tablet [facility] dicyclomine 2020-0 Yes [id number] 20mg Take 1 [facility] 20 mg 4-18 tablet by [facility] tablet 00:00: mouth [place] 00 every 6 Medical (six) Branch hours as needed for Abdominal pain. pantoprazol 2020-0 Yes [id number] 40mg Take 1 [facility] e 4-18 tablet by [facility] (PROTONIX) 00:00: mouth [place] 40 mg EC 00 daily. [facility] tablet [facility] dicyclomine 2020-0 Yes [id number] 20mg Take 1 [facility] 20 mg 4-18 tablet by [facility] tablet 00:00: mouth [place] 00 every 6 Medical (six) Branch hours as needed for Abdominal pain. pantoprazol 2020-0 Yes [id number] 40mg Take 1 [facility] e 4-18 tablet by [facility] (PROTONIX) 00:00: mouth [place] 40 mg EC 00 daily. [facility] tablet [facility] dicyclomine 2020-0 Yes [id number] 20mg Take 1 [facility] 20 mg 4-18 tablet by [facility] tablet 00:00: mouth [place] 00 every 6 Medical (six) Branch hours as needed for Abdominal pain. pantoprazol 2020-0 Yes [id number] 40mg Take 1 [facility] 4-18 tablet by [facility] (PROTONIX) 00:00: mouth [place] 40 mg EC 00 daily. [facility] tablet [facility] pantoprazol 2020-0 Yes [id number] 40mg Take 1 [facility] 4-18 tablet by [facility] (PROTONIX) 00:00: mouth [place] 40 mg EC 00 daily. [facility] tablet [facility] dicyclomine 2020-0 Yes [id number] 20mg Take 1 [facility] 20 mg 4-18 tablet by [facility] tablet 00:00: mouth [place] 00 every 6 Medical (six) Branch hours as needed for Abdominal pain. dicyclomine 2020-0 Yes [id number] 20mg Take 1 [facility] 20 mg 4-18 tablet by [facility] tablet 00:00: mouth [place] 00 every 6 Medical (six) Branch hours as needed for Abdominal pain. ondansetron 2020-0 Yes [id number] 4mg Take 1 [facility] ([facility]) 4 4-18 tablet by [facility] mg tablet 00:00: mouth [place] 00 every 8 Medical (eight) Branch hours as needed for Nausea and Vomiting (N/V). pantoprazol 2020-0 Yes [id number] 40mg Take 1 [facility] e 4-18 tablet by [facility] (PROTONIX) 00:00: mouth [place] 40 mg EC 00 daily. [facility] tablet Branch dicyclomine 2020-0 Yes [id number] 20mg Take 1 [facility] 20 mg 4-18 tablet by [facility] tablet 00:00: mouth [place] 00 every 6 Medical (six) Branch hours as needed for Abdominal pain. ondansetron 2020-0 Yes [id number] 4mg Take 1 [facility] ([facility]FR[facility]) 4 4-18 tablet by [facility] mg tablet 00:00: mouth [place] 00 every 8 Medical (eight) Branch hours as needed for Nausea and Vomiting (N/V). pantoprazol 2020-0 Yes [id number] 40mg Take 1 [facility] e 4-18 tablet by [facility] (PROTONIX) 00:00: mouth [place] 40 mg EC 00 daily. [facility] tablet [facility] dicyclomine 2020-0 Yes [id number] 20mg Take 1 [facility] 20 mg 4-18 tablet by [facility] tablet 00:00: mouth [place] 00 every 6 Medical (six) Branch hours as needed for Abdominal pain. ondansetron 2020-0 Yes [id number] 4mg Take 1 [facility] ([facility]FR[facility]) 4 4-18 tablet by [facility] mg tablet 00:00: mouth [place] 00 every 8 Medical (eight) Branch hours as needed for Nausea and Vomiting (N/V). pantoprazol 2020-0 Yes [id number] 40mg Take 1 [facility] e 4-18 tablet by [facility] (PROTONIX) 00:00: mouth [place] 40 mg EC 00 daily. [facility] tablet Branch dicyclomine 2020-0 Yes [id number] 20mg Take 1 [facility] 20 mg 4-18 tablet by [facility] tablet 00:00: mouth [place] 00 every 6 Medical (six) Branch hours as needed for Abdominal pain. ondansetron 2020-0 Yes [id number] 4mg Take 1 [facility] ([facility]) 4 4-18 tablet by [facility] mg tablet 00:00: mouth [place] 00 every 8 Medical (eight) Branch hours as needed for Nausea and Vomiting (N/V). pantoprazol 2020-0 Yes [id number] 40mg Take 1 [facility] e 4-18 tablet by [facility] (PROTONIX) 00:00: mouth [place] 40 mg EC 00 daily. [facility] tablet Branch dicyclomine 2020-0 Yes [id number] 20mg Take 1 [facility] 20 mg 4-18 tablet by [facility] tablet 00:00: mouth [place] 00 every 6 Medical (six) Branch hours as needed for Abdominal pain. ondansetron 2020-0 Yes [id number] 4mg Take 1 [facility] ([facility]) 4 4-18 tablet by [facility] mg tablet 00:00: mouth [place] 00 every 8 Medical (eight) Branch hours as needed for Nausea and Vomiting (N/V). pantoprazol 2020-0 Yes [id number] 40mg Take 1 [facility] e 4-18 tablet by [facility] (PROTONIX) 00:00: mouth [place] 40 mg EC 00 daily. [facility] tablet Branch dicyclomine 2020-0 Yes [id number] 20mg Take 1 [facility] 20 mg 4-18 tablet by [facility] tablet 00:00: mouth [place] 00 every 6 Medical (six) Branch hours as needed for Abdominal pain. ondansetron 2020-0 Yes [id number] 4mg Take 1 [facility] ([facility]) 4 4-18 tablet by [facility] mg tablet 00:00: mouth [place] 00 every 8 Medical (eight) Branch hours as needed for Nausea and Vomiting (N/V). pantoprazol 2020-0 Yes [id number] 40mg Take 1 [facility] e 4-18 tablet by [facility] (PROTONIX) 00:00: mouth [place] 40 mg EC 00 daily. [facility] tablet Branch dicyclomine 2020-0 Yes [id number] 20mg Take 1 [facility] 20 mg 4-18 tablet by [facility] tablet 00:00: mouth [place] 00 every 6 Medical (six) Branch hours as needed for Abdominal pain. ondansetron 2020-0 Yes [id number] 4mg Take 1 [facility] ([facility]) 4 4-18 tablet by [facility] mg tablet 00:00: mouth [place] 00 every 8 Medical (eight) Branch hours as needed for Nausea and Vomiting (N/V). pantoprazol 2020-0 Yes [id number] 40mg Take 1 [facility] e 4-18 tablet by [facility] (PROTONIX) 00:00: mouth [place] 40 mg EC 00 daily. [facility] tablet Branch dicyclomine 2020-0 Yes [id number] 20mg Take 1 [facility] 20 mg 4-18 tablet by [facility] tablet 00:00: mouth [place] 00 every 6 Medical (six) Branch hours as needed for Abdominal pain. ondansetron 2020-0 Yes [id number] 4mg Take 1 [facility] ([facility]) 4 4-18 tablet by [facility] mg tablet 00:00: mouth [place] 00 every 8 [facility] (eight) Branch hours as needed for Nausea and Vomiting (N/V). pantoprazol 2020-0 Yes [id number] 40mg Take 1 [facility] e 4-18 tablet by [facility] of (PROTONIX) 00:00: mouth [place] 40 mg EC 00 daily. Medical tablet Branch dicyclomine 2020-0 Yes [id number] 20mg Take 1 [facility] 20 mg 4-18 tablet by [facility] of tablet 00:00: mouth [place] 00 every 6 Medical (six) Branch hours as needed for Abdominal pain. ondansetron 2020-0 Yes [id number] 4mg Take 1 [facility] (ZOFRAN) 4 4-18 tablet by ity of mg tablet 00:00: mouth [place] 00 every 8 Medical (eight) Branch hours as needed for Nausea and Vomiting (N/V). pantoprazol 2020-0 Yes [id number] 40mg Take 1 [facility] e 4-18 tablet by [facility] of (PROTONIX) 00:00: mouth [place] 40 mg EC 00 daily. Medical tablet Branch dicyclomine 2020-0 Yes [id number] 20mg Take 1 [facility] 20 mg 4-18 tablet by [facility] of tablet 00:00: mouth [place] 00 every 6 Medical (six) Branch hours as needed for Abdominal pain. ondansetron 2020-0 Yes [id number] 4mg Take 1 [facility] (ZOFRAN) 4 4-18 tablet by [facility] of mg tablet 00:00: mouth [place] 00 every 8 Medical (eight) Branch hours as needed for Nausea and Vomiting (N/V). pantoprazol 2020-0 Yes [id number] 40mg Take 1 [facility] e 4-18 tablet by [facility] of (PROTONIX) 00:00: mouth [place] 40 mg EC 00 daily. Medical tablet Branch dicyclomine 2020-0 Yes [id number] 20mg Take 1 [facility] 20 mg 4-18 tablet by [facility] of tablet 00:00: mouth [place] 00 every 6 Medical (six) Branch hours as needed for Abdominal pain. ondansetron 2020-0 Yes [id number] 4mg Take 1 [facility] (ZOFRAN) 4 4-18 tablet by [facility] of mg tablet 00:00: mouth [place] 00 every 8 Medical (eight) Branch hours as needed for Nausea and Vomiting (N/V). pantoprazol 2020-0 Yes [id number] 40mg Take 1 [facility] e 4-18 tablet by [facility] of (PROTONIX) 00:00: mouth [place] 40 mg EC 00 daily. Medical tablet Branch dicyclomine 2020-0 Yes [id number] 20mg Take 1 [facility] 20 mg 4-18 tablet by [facility] of tablet 00:00: mouth [place] 00 every 6 Medical (six) Branch hours as needed for Abdominal pain. ondansetron 2020-0 Yes [id number] 4mg Take 1 [facility] (ZOFRAN) 4 4-18 tablet by [facility] of mg tablet 00:00: mouth [place] 00 every 8 Medical (eight) Branch hours as needed for Nausea and Vomiting (N/V). pantoprazol 2020-0 Yes [id number] 40mg Take 1 [facility] e 4-18 tablet by [facility] of (PROTONIX) 00:00: mouth [place] 40 mg EC 00 daily. Medical tablet Branch dicyclomine 2020-0 Yes [id number] 20mg Take 1 [facility] 20 mg 4-18 tablet by [facility] of tablet 00:00: mouth [place] 00 every 6 Medical (six) Branch hours as needed for Abdominal pain. ondansetron 2020-0 Yes [id number] 4mg Take 1 [facility] (ZOFRAN) 4 4-18 tablet by [facility] of mg tablet 00:00: mouth [place] 00 every 8 Medical (eight) Branch hours as needed for Nausea and Vomiting (N/V). pantoprazol 2020-0 Yes [id number] 40mg Take 1 [facility] e 4-18 tablet by [facility] of (PROTONIX) 00:00: mouth [place] 40 mg EC 00 daily. Medical tablet Branch dicyclomine 2020-0 Yes [id number] 20mg Take 1 [facility] 20 mg 4-18 tablet by [facility] of tablet 00:00: mouth [place] 00 every 6 Medical (six) Branch hours as needed for Abdominal pain. ondansetron 2020-0 Yes [id number] 4mg Take 1 [facility] (ZOFRAN) 4 4-18 tablet by [facility] of mg tablet 00:00: mouth [place] 00 every 8 Medical (eight) Branch hours as needed for Nausea and Vomiting (N/V). pantoprazol 2020-0 Yes [id number] 40mg Take 1 [facility] e 4-18 tablet by [facility] of (PROTONIX) 00:00: mouth [place] 40 mg EC 00 daily. Medical tablet Branch dicyclomine 2020-0 Yes [id number] 20mg Take 1 [facility] 20 mg 4-18 tablet by [facility] of tablet 00:00: mouth [place] 00 every 6 Medical (six) Branch hours as needed for Abdominal pain. ondansetron 2020-0 Yes [id number] 4mg Take 1 [facility] (ZOFRAN) 4 4-18 tablet by [facility] of mg tablet 00:00: mouth [place] 00 every 8 Medical (eight) Branch hours as needed for Nausea and Vomiting (N/V). pantoprazol 2020-0 Yes [id number] 40mg Take 1 [facility] e 4-18 tablet by [facility] of (PROTONIX) 00:00: mouth [place] 40 mg EC 00 daily. Medical tablet Branch dicyclomine 2020-0 Yes [id number] 20mg Take 1 [facility] 20 mg 4-18 tablet by [facility] of tablet 00:00: mouth [place] 00 every 6 Medical (six) Branch hours as needed for Abdominal pain. ondansetron 2020-0 Yes [id number] 4mg Take 1 [facility] (ZOFRAN) 4 4-18 tablet by it[facility] of mg tablet 00:00: mouth [place] 00 every 8 Medical (eight) Branch hours as needed for Nausea and Vomiting (N/V). pantoprazol 2020-0 Yes [id number] 40mg Take 1 [facility] e 4-18 tablet by [facility] of (PROTONIX) 00:00: mouth [place] 40 mg EC 00 daily. Medical tablet Branch dicyclomine 2020-0 Yes [id number] 20mg Take 1 [facility] 20 mg 4-18 tablet by [facility] of tablet 00:00: mouth [place] 00 every 6 Medical (six) Branch hours as needed for Abdominal pain. ondansetron 2020-0 Yes [id number] 4mg Take 1 [facility] (ZOFRAN) 4 4-18 tablet by [facility] of mg tablet 00:00: mouth [place] 00 every 8 Medical (eight) Branch hours as needed for Nausea and Vomiting (N/V). pantoprazol 2020-0 Yes [id number] 40mg Take 1 [facility] e 4-18 tablet by [facility] of (PROTONIX) 00:00: mouth [place] 40 mg EC 00 daily. Medical tablet Branch dicyclomine 2020-0 Yes [id number] 20mg Take 1 [facility] 20 mg 4-18 tablet by [facility] of tablet 00:00: mouth [place] 00 every 6 Medical (six) Branch hours as needed for Abdominal pain. ondansetron 2020-0 Yes [id number] 4mg Take 1 [facility] (ZOFRAN) 4 4-18 tablet by [facility] of mg tablet 00:00: mouth [place] 00 every 8 Medical (eight) Branch hours as needed for Nausea and Vomiting (N/V). pantoprazol 2020-0 Yes [id number] 40mg Take 1 [facility] e 4-18 tablet by [facility] of (PROTONIX) 00:00: mouth [place] 40 mg EC 00 daily. Medical tablet Branch dicyclomine 2020-0 Yes [id number] 20mg Take 1 [facility] 20 mg 4-18 tablet by [facility] of tablet 00:00: mouth [place] 00 every 6 Medical (six) Branch hours as needed for Abdominal pain. ondansetron 2020-0 Yes [id number] 4mg Take 1 [facility] (ZOFRAN) 4 4-18 tablet by [facility] of mg tablet 00:00: mouth [place] 00 every 8 Medical (eight) Branch hours as needed for Nausea and Vomiting (N/V). pantoprazol 2020-0 Yes [id number] 40mg Take 1 [facility] e 4-18 tablet by [facility] of (PROTONIX) 00:00: mouth [place] 40 mg EC 00 daily. Medical tablet Branch dicyclomine 2020-0 Yes [id number] 20mg Take 1 [facility] 20 mg 4-18 tablet by [facility] of tablet 00:00: mouth [place] 00 every 6 Medical (six) Branch hours as needed for Abdominal pain. ondansetron 2020-0 Yes [id number] 4mg Take 1 [facility] (ZOFRAN) 4 4-18 tablet by [facility] of mg tablet 00:00: mouth [place] 00 every 8 Medical (eight) Branch hours as needed for Nausea and Vomiting (N/V). pantoprazol 2020-0 Yes [id number] 40mg Take 1 [facility] e 4-18 tablet by [facility] of (PROTONIX) 00:00: mouth [place] 40 mg EC 00 daily. Medical tablet Branch dicyclomine 2020-0 Yes [id number] 20mg Take 1 [facility] 20 mg 4-18 tablet by [facility] of tablet 00:00: mouth [place] 00 every 6 Medical (six) Branch hours as needed for Abdominal pain. ondansetron 2020-0 Yes [id number] 4mg Take 1 [facility] (ZOFRAN) 4 4-18 tablet by [facility] of mg tablet 00:00: mouth [place] 00 every 8 Medical (eight) Branch hours as needed for Nausea and Vomiting (N/V). pantoprazol 0 Yes [id number] 40mg Take 1 [facility] e 4-18 tablet by [facility] of (PROTONIX) 00:00: mouth [place] 40 mg EC 00 daily. Medical tablet Branch dicyclomine 0 Yes [id number] 20mg Take 1 [facility] 20 mg 4-18 tablet by [facility] of tablet 00:00: mouth [place] 00 every 6 Medical (six) Branch hours as needed for Abdominal pain. ondansetron Yes [id number] 4mg Take 1 [facility] (ZOFRAN) 4 4-18 tablet by [facility] of mg tablet 00:00: mouth [place] 00 every 8 Medical (eight) Branch hours as needed for Nausea and Vomiting (N/V). pantoprazol Yes [id number] 40mg Take 1 [facility] e 4-18 tablet by [facility] of (PROTONIX) 00:00: mouth [place] 40 mg EC 00 daily. Medical tablet Branch dicyclomine Yes [id number] 20mg Take 1 [facility] 20 mg 4-18 tablet by [facility] of tablet 00:00: mouth [place] 00 every 6 Medical (six) Branch hours as needed for Abdominal pain. ondansetron Yes [id number] 4mg Take 1 [facility] (ZOFRAN) 4 4-18 tablet by [facility] of mg tablet 00:00: mouth [place] 00 every 8 Medical (eight) Branch hours as needed for Nausea and Vomiting (N/V). ondansetron 2022- No [id number] 4mg Take 1 [facility] (ZOFRAN) 4 4-18 06-27 tablet by [facility] of mg tablet 00:00: 00:00 mouth [place] 00 :00 every 8 Medical (eight) Branch hours as needed for Nausea and Vomiting (N/V). ondansetron 2022- No [id number] 4mg Take 1 [facility] (ZOFRAN) 4 4-18 [...] 4-6). Indication s: acute pain acetaminoph 2020-1 3- No 4647 1{tbl} Take 1-2 [facility] en-codeine [...] (scale 1-3). Indication s: acute pain acetaminoph 2019-0 2022- No 4647 1{tbl} Take 1 [facility] en-codeine 8-08 10-05 tablet by [facility] of (TYLENOL-CO 00:00: 00:[place] [facility] [place] DE[place] #3[place] 00 :00 every 4 Medical 300-30 mg (four) Branch tablet hours as needed for Pain (scale 1-3). Indication s: acute pain acetaminoph 2019-2022- No 4647 1{tbl} Take 1 [facility] en-codeine 8-08 10-05 tablet by [facility] of (TYLENOL-CO 00:00: 00:[place] [facility] [place] DE[place] #3) 00 :00 every 4 Medical 300-30 mg (four) Branch tablet hours as needed for Pain (scale 1-3). Indication s: acute pain Acetaminoph Acetaminoph 2019-0 Yes JOSEFINA Take 1 po [facility] en-Codeine [...] 00 DAILY UNTIL FINISHED. nystatin 2020-0 Yes [id number] Apply to [facility] 100,000 2-05 affected [facility] of unit/gram 00:00: area(s) 3 [facility] as ointment 00 (three) Medical times Branch daily. nystatin 2020-0 Yes [id number] Apply to [facility] 100,000 2-05 affected [facility] of unit/gram 00:00: area(s) 3 [facility] ointment 00 (three) Medical times Branch daily. nystatin 2020-0 Yes [id number] Apply to [facility] 100,000 2-05 affected [facility] of unit/gram 00:00: area(s) 3 [facility] ointment 00 (three) Medical times Branch daily. nystatin 2020-0 Yes [id number] Apply to [facility] 100,000 2-05 affected [facility] of unit/gram 00:00: area(s) 3 [facility] ointment 00 (three) Medical times Branch daily. nystatin 2020-0 Yes [id number] Apply to [facility] 100,000 2-05 affected [facility] of unit/gram 00:00: area(s) 3 [facility] ointment 00 (three) Medical times Branch daily. nystatin 2020-0 Yes [id number] Apply to [facility] 100,000 2-05 affected [facility] of unit/gram 00:00: area(s) 3 [facility] ointment 00 (three) Medical times Branch daily. nystatin 2020-0 Yes [id number] Apply to [facility] 100,000 2-05 affected [facility] of unit/gram 00:00: area(s) 3 [facility] ointment 00 (three) Medical times Branch daily. nystatin 2020-0 Yes [id number] Apply to [facility] 100,000 2-05 affected [facility] of unit/gram 00:00: area(s) 3 [facility] ointment 00 (three) Medical times Branch daily. nystatin 2020-0 Yes [id number] Apply to [facility] 100,000 2-05 affected [facility] of unit/gram 00:00: area(s) 3 [facility] ointment 00 (three) Medical times Branch daily. nystatin 2020-0 Yes [id number] Apply to [facility] 100,000 2-05 affected [facility] of unit/gram 00:00: area(s) 3 [facility] ointment 00 (three) Medical times Branch daily. nystatin 2020-0 Yes [id number] Apply to [facility] 100,000 2-05 affected [facility] of unit/gram 00:00: area(s) 3 [facility] ointment 00 (three) Medical times Branch daily. nystatin 2020-0 Yes [id number] Apply to [facility] 100,000 2-05 affected [facility]y of unit/gram 00:00: area(s) 3 [facility] ointment 00 (three) Medical times Branch daily. nystatin 2020-0 Yes [id number] Apply to [facility] 100,000 2-05 affected [facility]y of unit/gram 00:00: area(s) 3 [facility] ointment 00 (three) Medical times Branch daily. nystatin 2020-0 Yes [id number] Apply to [facility] 100,000 2-05 affected [facility]y of unit/gram 00:00: area(s) 3 [facility] ointment 00 (three) Medical times Branch daily. nystatin 2020-0 Yes [id number] Apply to [facility] 100,000 2-05 affected [facility]y of unit/gram 00:00: area(s) 3 [facility] ointment 00 (three) Medical times Branch daily. nystatin 2020-0 Yes [id number] Apply to [facility] 100,000 2-05 affected [facility]y of unit/gram 00:00: area(s) 3 [facility] ointment 00 (three) Medical times Branch daily. nystatin 2020-0 Yes [id number] Apply to [facility] 100,000 2-05 affected [facility]y of unit/gram 00:00: area(s) 3 [facility] ointment 00 (three) Medical times Branch daily. nystatin 2020-0 Yes [id number] Apply to [facility] 100,000 2-05 affected [facility]y of unit/gram 00:00: area(s) 3 [facility] ointment 00 (three) Medical times Branch daily. nystatin 2020-0 Yes [id number] Apply to [facility] 100,000 2-05 affected [facility]y of unit/gram 00:00: area(s) 3 [facility] ointment 00 (three) Medical times Branch daily. nystatin 2020-0 Yes [id number] Apply to [facility] 100,000 2-05 affected [facility] of unit/gram 00:00: area(s) 3 [facility] ointment 00 (three) Medical times Branch daily. nystatin 2020-0 Yes [id number] Apply to [facility] 100,000 2-05 affected [facility]y of unit/gram 00:00: area(s) 3 [facility] ointment 00 (three) Medical times Branch daily. nystatin 2020-0 Yes [id number] Apply to [facility] 100,000 2-05 affected [facility]y of unit/gram 00:00: area(s) 3 [facility] ointment 00 (three) Medical times Branch daily. nystatin 2020-0 Yes [id number] Apply to [facility] 100,000 2-05 affected [facility]y of unit/gram 00:00: area(s) 3 [facility] ointment 00 (three) Medical times Branch daily. nystatin 2020-0 Yes [id number] Apply to [facility] 100,000 2-05 affected [facility]y of unit/gram 00:00: area(s) 3 [facility] ointment 00 (three) Medical times Branch daily. nystatin 2020-0 Yes [id number] Apply to [facility] 100,000 2-05 affected [facility] of unit/gram 00:00: area(s) 3 [facility] ointment 00 (three) Medical times Branch daily. nystatin 2020-0 Yes [id number] Apply to [facility] 100,000 2-05 affected [facility]y of unit/gram 00:00: area(s) 3 [facility] ointment 00 (three) Medical times Branch daily. nystatin 2020-0 Yes [id number] Apply to [facility] 100,000 2-05 affected [facility]y of unit/gram 00:00: area(s) 3 [facility] ointment 00 (three) Medical times Branch daily. nystatin 2020-0 Yes [id number] Apply to [facility] 100,000 2-05 affected [facility]y of unit/gram 00:00: area(s) 3 [facility] ointment 00 (three) Medical times Branch daily. nystatin 2020-0 Yes [id number] Apply to [facility] 100,000 2-05 affected [facility]y of unit/gram 00:00: area(s) 3 [facility] ointment 00 (three) Medical times Branch daily. nystatin 2020-0 Yes [id number] Apply to [facility] 100,000 2-05 affected [facility]y of unit/gram 00:00: area(s) 3 [facility] ointment 00 (three) Medical times Branch daily. nystatin 2020-0 Yes [id number] Apply to [facility] 100,000 2-05 affected [facility] of unit/gram 00:00: area(s) 3 [facility] ointment 00 (three) Medical times Branch daily. nystatin 2020-0 Yes [id number] Apply to [facility] 100,000 2-05 affected [facility]y of unit/gram 00:00: area(s) 3 [facility] ointment 00 (three) Medical times Branch daily. nystatin 2020-0 Yes [id number] Apply to [facility] 100,000 2-05 affected [facility]y of unit/gram 00:00: area(s) 3 [facility] ointment 00 (three) Medical times Branch daily. nystatin 2020-0 Yes [id number] Apply to [facility] 100,000 2-05 affected ity of unit/gram 00:00: area(s) 3 [facility] ointment 00 (three) Medical times Branch daily. nystatin 2020-0 Yes [id number] Apply to [facility] 100,000 2-05 affected ity of unit/gram 00:00: area(s) 3 [facility] ointment 00 (three) Medical times Branch daily. nystatin 2020-0 Yes [id number] Apply to [facility] 100,000 2-05 affected ity of unit/gram 00:00: area(s) 3 [facility] ointment 00 (three) Medical times Branch daily. nystatin 2020-0 Yes [id number] Apply to [facility] 100,000 2-05 affected [facility]y of unit/gram 00:00: area(s) 3 [facility] ointment 00 (three) Medical times Branch daily. nystatin 2020-0 Yes [id number] Apply to [facility] 100,000 2-05 affected ity of unit/gram 00:00: area(s) 3 [facility] ointment 00 (three) Medical times Branch daily. nystatin 2020-0 Yes [id number] Apply to [facility] 100,000 2-05 affected ity of unit/gram 00:00: area(s) 3 [facility] ointment 00 (three) Medical times Branch daily. nystatin 2020-0 Yes [id number] Apply to [facility] 100,000 2-05 affected ity of unit/gram 00:00: area(s) 3 [facility] ointment 00 (three) Medical times Branch daily. nystatin 2020-0 Yes [id number] Apply to [facility] 100,000 2-05 affected ity of unit/gram 00:00: area(s) 3 [facility] ointment 00 (three) Medical times Branch daily. nystatin 2020-0 Yes [id number] Apply to [facility] 100,000 2-05 affected ity of unit/gram 00:00: area(s) 3 [facility] ointment 00 (three) Medical times Branch daily. nystatin 2020-0 Yes [id number] Apply to [facility] 100,000 2-05 affected ity of unit/gram 00:00: area(s) 3 [place] [facility] ointment 00 (three) Medical times Branch daily. nystatin 2020-0 Yes [id number] Apply to [facility] 100,000 2-05 affected ity of unit/gram 00:00: area(s) 3 [facility] as ointment 00 (three) Medical times Branch daily. nystatin 2020-0 Yes [id number] Apply to [facility] 100,000 2-05 affected ity of unit/gram 00:00: area(s) 3 [facility] ointment 00 (three) Medical times Branch daily. nystatin 2020-0 Yes [id number] Apply to [facility] 100,000 2-05 affected ity of unit/gram 00:00: area(s) 3 [facility] ointment 00 (three) Medical times Branch daily. nystatin 2020-0 Yes [id number] Apply to [facility] 100,000 2-05 affected ity of unit/gram 00:00: area(s) 3 [facility] ointment 00 (three) Medical times Branch daily. nystatin 2020-0 Yes [id number] Apply to [facility] 100,000 2-05 affected [facility]y of unit/gram 00:00: area(s) 3 [facility] ointment 00 (three) Medical times Branch daily. nystatin 2020-0 Yes [id number] Apply to [facility] 100,000 2-05 affected ity of unit/gram 00:00: area(s) 3 [facility] ointment 00 (three) Medical times Branch daily. nystatin 2020-0 Yes [id number] Apply to [facility] 100,000 2-05 affected ity of unit/gram 00:00: area(s) 3 [facility] ointment 00 (three) Medical times Branch daily. nystatin 2020-0 Yes [id number] Apply to [facility] 100,000 2-05 affected ity of unit/gram 00:00: area(s) 3 [facility] ointment 00 (three) Medical times Branch daily. nystatin 2020-0 Yes [id number] Apply to [facility] 100,000 2-05 affected [facility]y of unit/gram 00:00: area(s) 3 [facility] ointment 00 (three) Medical times Branch daily. nystatin 2020-0 Yes [id number] Apply to [facility] 100,000 2-05 affected [facility]y of unit/gram 00:00: area(s) 3 [facility] ointment 00 (three) Medical times Branch daily. nystatin 2020-0 Yes [id number] Apply to [facility] 100,000 2-05 affected [facility]y of unit/gram 00:00: area(s) 3 [facility] ointment 00 (three) Medical times Branch daily. nystatin 2020-0 Yes [id number] Apply to [facility] 100,000 2-05 affected [facility]y of unit/gram 00:00: area(s) 3 [facility] ointment 00 (three) Medical times Branch daily. nystatin 2020-0 Yes [id number] Apply to [facility] 100,000 2-05 affected ity of unit/gram 00:00: area(s) 3 [facility] ointment 00 (three) Medical times Branch daily. nystatin 2020-0 Yes [id number] Apply to [facility] 100,000 2-05 affected ity of unit/gram 00:00: area(s) 3 [facility] ointment 00 (three) Medical times Branch daily. nystatin 2020-0 Yes [id number] Apply to [facility] 100,000 2-05 affected [facility]y of unit/gram 00:00: area(s) 3 [facility] ointment 00 (three) Medical times Branch daily. nystatin 2020-0 Yes [id number] Apply to [facility] 100,000 2-05 affected ity of unit/gram 00:00: area(s) 3 [facility] ointment 00 (three) Medical times Branch daily. nystatin 2020-0 Yes [id number] Apply to [facility] 100,000 2-05 affected ity of unit/gram 00:00: area(s) 3 [facility] ointment 00 (three) Medical times Branch daily. nystatin 2020-0 Yes [id number] Apply to [facility] 100,000 2-05 affected ity of unit/gram 00:00: area(s) 3 [facility] ointment 00 (three) Medical times Branch daily. nystatin 2020-0 Yes [id number] Apply to [facility] 100,000 2-05 affected ity of unit/gram 00:00: area(s) 3 [facility] ointment 00 (three) Medical times Branch daily. nystatin 2020-0 Yes [id number] Apply to [facility] 100,000 2-05 affected ity of unit/gram 00:00: area(s) 3 [facility] ointment 00 (three) Medical times Branch daily. nystatin 2020-0 Yes [id number] Apply to [facility] 100,000 2-05 affected ity of unit/gram 00:00: area(s) 3 [facility] ointment 00 (three) Medical times Branch daily. nystatin 2020-0 Yes [id number] Apply to [facility] 100,000 2-05 affected ity of unit/gram 00:00: area(s) 3 [facility] as ointment 00 (three) Medical times Branch daily. nystatin 2020-0 Yes [id number] Apply to [facility] 100,000 2-05 affected ity of unit/gram 00:00: area(s) 3 [facility] as ointment 00 (three) Medical times Branch daily. nystatin 2020-0 Yes [id number] Apply to [facility] 100,000 2-05 affected ity of unit/gram 00:00: area(s) 3 [facility] ointment 00 (three) Medical times Branch daily. nystatin 2020-0 Yes [id number] Apply to [facility] 100,000 2-05 affected ity of unit/gram 00:00: area(s) 3 [facility] ointment 00 (three) Medical times Branch daily. nystatin 2020-0 Yes [id number] Apply to [facility] 100,000 2-05 affected ity of unit/gram 00:00: area(s) 3 [facility] ointment 00 (three) Medical times Branch daily. nystatin 2020-0 Yes [id number] Apply to [facility] 100,000 2-05 affected ity of unit/gram 00:00: area(s) 3 [facility] as ointment 00 (three) Medical times Branch daily. nystatin 2020-0 Yes [id number] Apply to [facility] 100,000 2-05 affected ity [...] Tablet Tablet 00 DIRECTED. medroxyPROG 2019-0 Yes [id number] 150mg [facility] ESTERone 5-14 ity of (DEPO-PROVE 18:30: [place] [facility]) 00 Medical injection Branch 150 mg medroxyPROG 2019-0 Yes [id number] 150mg [facility] ESTERone 5-14 ity of (DEPO-PROVE 18:30: [place] [facility]) 00 Medical injection Branch 150 mg medroxyPROG 2019-0 Yes [id number] 150mg [facility] ESTERone 5-14 ity of (DEPO-PROVE 18:30: [place] [facility]) 00 Medical injection Branch 150 mg medroxyPROG 2019-0 Yes [id number] 150mg [facility] ESTERone 5-14 ity of (DEPO-PROVE 18:30: [place] [facility]) 00 Medical injection Branch 150 mg medroxyPROG 2019-0 Yes [id number] 150mg [facility] ESTERone 5-14 ity of (DEPO-PROVE 18:30: [place] [facility]) 00 Medical injection Branch 150 mg medroxyPROG 2019-0 Yes [id number] 150mg [facility] ESTERone 5-14 ity of (DEPO-PROVE 18:30: [place] [facility]) 00 Medical injection Branch 150 mg medroxyPROG 2019-0 Yes [id number] 150mg [facility] ESTERone 5-14 ity of (DEPO-PROVE 18:30: [place] [facility]) 00 Medical injection Branch 150 mg medroxyPROG 2019-0 Yes [id number] 150mg [facility] ESTERone 5-14 ity of (DEPO-PROVE 18:30: [place] [facility]) 00 Medical injection Branch 150 mg medroxyPROG 2019-0 Yes [id number] 150mg [facility] ESTERone 5-14 ity of (DEPO-PROVE 18:30: [place] [facility]) 00 Medical injection Branch 150 mg medroxyPROG 2019-0 Yes [id number] 150mg [facility] ESTERone 5-14 ity of (DEPO-PROVE 18:30: [place] [facility]) 00 Medical injection Branch 150 mg medroxyPROG 2019-0 Yes [id number] 150mg [facility] ESTERone 5-14 ity of (DEPO-PROVE 18:30: [place] [facility]) 00 Medical injection Branch 150 mg medroxyPROG 2019-0 Yes [id number] 150mg [facility] ESTERone 5-14 ity of (DEPO-PROVE 18:30: [place] [facility]) 00 Medical injection Branch 150 mg medroxyPROG 2019-0 Yes [id number] 150mg [facility] ESTERone 5-14 ity of (DEPO-PROVE 18:30: [place] [facility]) 00 Medical injection Branch 150 mg medroxyPROG 2019-0 Yes [id number] 150mg [facility] ESTERone 5-14 ity of (DEPO-PROVE 18:30: [place] [facility]) 00 Medical injection Branch 150 mg medroxyPROG 2019-0 Yes [id number] 150mg [facility] ESTERone 5-14 ity of (DEPO-PROVE 18:30: [place] [facility]) 00 Medical injection Branch 150 mg medroxyPROG 2019-0 Yes [id number] 150mg [facility] ESTERone 5-14 ity of (DEPO-PROVE 18:30: [place] [facility]) 00 Medical injection Branch 150 mg medroxyPROG 2019-0 Yes [id number] 150mg [facility] ESTERone 5-14 ity of (DEPO-PROVE 18:30: [place] [facility]) 00 Medical injection Branch 150 mg medroxyPROG 2019-0 Yes [id number] 150mg [facility] ESTERone 5-14 ity of (DEPO-PROVE 18:30: [place] [facility]) 00 Medical injection Branch 150 mg medroxyPROG 2019-0 Yes [id number] 150mg [facility] ESTERone 5-14 ity of (DEPO-PROVE 18:30: [place] [facility]) 00 Medical injection Branch 150 mg medroxyPROG 2019-0 Yes [id number] 150mg [facility] ESTERone 5-14 ity of (DEPO-PROVE 18:30: [place] [facility]) 00 Medical injection Branch 150 mg medroxyPROG 2019-0 Yes [id number] 150mg [facility] ESTERone 5-14 ity of (DEPO-PROVE 18:30: [place] [facility]) 00 Medical injection Branch 150 mg medroxyPROG 2019-0 Yes [id number] 150mg [facility] ESTERone 5-14 ity of (DEPO-PROVE 18:30: [place] [facility]) 00 Medical injection Branch 150 mg medroxyPROG 2019-0 Yes [id number] 150mg [facility] ESTERone 5-14 ity of (DEPO-PROVE 18:30: [place] [facility]) 00 Medical injection Branch 150 mg medroxyPROG 2019-0 Yes [id number] 150mg [facility] ESTERone 5-14 ity of (DEPO-PROVE 18:30: [place] [facility]) 00 Medical injection Branch 150 mg medroxyPROG 2019-0 Yes [id number] 150mg [facility] ESTERone 5-14 ity of (DEPO-PROVE 18:30: [place] [facility]) 00 Medical injection Branch 150 mg medroxyPROG 2019-0 Yes [id number] 150mg [facility] ESTERone 5-14 ity of (DEPO-PROVE 18:30: [place] [facility]) 00 Medical injection Branch 150 mg medroxyPROG 2019-0 Yes [id number] 150mg [facility] ESTERone 5-14 ity of (DEPO-PROVE 18:30: [place] [facility]) 00 Medical injection Branch 150 mg medroxyPROG 2019-0 Yes [id number] 150mg [facility] ESTERone 5-14 ity of (DEPO-PROVE 18:30: [place] [facility]) 00 Medical injection Branch 150 mg medroxyPROG 2019-0 Yes [id number] 150mg [facility] ESTERone 5-14 ity of (DEPO-PROVE 18:30: [place] [facility]) 00 Medical injection Branch 150 mg medroxyPROG 2019-0 Yes [id number] 150mg [facility] ESTERone 5-14 ity of (DEPO-PROVE 18:30: [place] [facility]) 00 Medical injection Branch 150 mg medroxyPROG 2019-0 Yes [id number] 150mg [facility] ESTERone 5-14 ity of (DEPO-PROVE 18:30: [place] [facility]) 00 [facility] 150 mg medroxyPROG 2019-0 Yes [id number] 150mg [facility]14 [facility] of (DEPO-PROVE 18:30: [place] [facility]) 00 [facility] 150 mg medroxyPROG 2019-0 Yes [id number] 150mg [facility] ESTERone 5-14 ity of (DEPO-PROVE 18:30: [place] [facility]) 00 [facility] 150 mg medroxyPROG 2019-0 Yes [id number] 150mg [facility] ESTERone 5-14 ity of (DEPO-PROVE 18:30: [place] [facility]) 00 [facility] 150 mg medroxyPROG 2019-0 Yes [id number] 150mg [facility] ESTERone 5-14 ity of (DEPO-PROVE 18:30: [place] [facility]) 00 [facility] 150 mg medroxyPROG 2019-0 Yes [id number] 150mg [facility] ESTERone 5-14 ity of (DEPO-PROVE 18:30: [place] [facility]) 00 [facility] 150 mg medroxyPROG 2019-0 Yes [id number] 150mg [facility] ESTERone 5-14 ity of (DEPO-PROVE 18:30: [place] [facility]) 00 [facility] 150 mg medroxyPROG 2019-0 Yes [id number] 150mg [facility] ESTERone 5-14 ity of (DEPO-PROVE 18:30: [place] [facility]) 00 [facility] 150 mg medroxyPROG 2019-0 Yes [id number] 150mg [facility] EST[facility] 5-14 ity of (DEPO-PROVE 18:30: [place] [facility]) 00 [facility] 150 mg medroxyPROG 2019-0 Yes [id number] 150mg [facility] EST[facility] 5-14 ity of (DEPO-PROVE 18:30: [place] [facility]) 00 [facility] 150 mg medroxyPROG 2019-0 Yes [id number] 150mg [facility] ESTERone 5-14 ity of (DEPO-PROVE 18:30: [place] [facility]) 00 [facility] 150 mg medroxyPROG 2019-0 Yes [id number] 150mg [facility] ESTERone 5-14 ity of (DEPO-PROVE 18:30: [place] [facility]) 00 [facility] 150 mg medroxyPROG 2019-0 Yes [id number] 150mg [facility] ESTERone 5-14 ity of (DEPO-PROVE 18:30: [place] [facility]) 00 [facility] 150 mg medroxyPROG 2019-0 Yes [id number] 150mg [facility] ESTER[facility] 5-14 ity of (DEPO-PROVE 18:30: [place] [facility]) 00 [facility] 150 mg medroxyPROG 2019-0 Yes [id number] 150mg [facility] ESTERone 5-14 ity of (DEPO-PROVE 18:30: [place] [facility]) 00 [facility] 150 mg medroxyPROG 2019-0 Yes [id number] 150mg [facility] ESTERone 5-14 ity of (DEPO-PROVE 18:30: [place] [facility]) 00 [facility] 150 mg medroxyPROG 2019-0 Yes [id number] 150mg [facility] ESTER[facility] 5-14 ity of (DEPO-PROVE 18:30: [place] [facility]) 00 [facility] 150 mg medroxyPROG 2019-0 Yes [id number] 150mg [facility] EST[facility] 5-14 ity of (DEPO-PROVE 18:30: [place] [facility]) 00 [facility] 150 mg medroxyPROG 2019-0 Yes [id number] 150mg [facility] EST[facility]one 5-14 ity of (DEPO-PROVE 18:30: [place] [facility]) 00 [facility] 150 mg medroxyPROG 2019-0 Yes [id number] 150mg [facility] EST[facility]one 5-14 ity of (DEPO-PROVE 18:30: [place] [facility]) 00 [facility] 150 mg medroxyPROG 2019-0 Yes [id number] 150mg [facility] EST[facility] 5-14 ity of (DEPO-PROVE 18:30: [place] [facility]) 00 [facility] 150 mg medroxyPROG 2019-0 Yes [id number] 150mg [facility] EST[facility] 5-14 ity of (DEPO-PROVE 18:30: [place] [facility]) 00 [facility] 150 mg medroxyPROG 2019-0 Yes [id number] 150mg [facility] ESTERone 5-14 ity of (DEPO-PROVE 18:30: [place] [facility]) 00 [facility] 150 mg medroxyPROG 2019-0 Yes [id number] 150mg [facility] ESTERone 5-14 ity of (DEPO-PROVE 18:30: [place] [facility]) 00 [facility] 150 mg medroxyPROG 2019-0 Yes [id number] 150mg [facility] EST[facility] 5-14 ity of (DEPO-PROVE 18:30: [place] [facility]) 00 [facility] 150 mg medroxyPROG 2019-0 Yes [id number] 150mg [facility] ESTER[facility] 5-14 ity of (DEPO-PROVE 18:30: [place] [facility]) 00 [facility] 150 mg medroxyPROG 2019-0 Yes [id number] 150mg [facility] EST[facility] 5-14 ity of (DEPO-PROVE 18:30: [place] [facility]) 00 [facility] 150 mg medroxyPROG 2019-0 Yes [id number] 150mg [facility] ESTERone 5-14 ity of (DEPO-PROVE 18:30: [place] [facility]) 00 [facility] 150 mg medroxyPROG 2019-0 Yes [id number] 150mg [facility] ESTERone 5-14 ity of (DEPO-PROVE 18:30: [place] [facility]) 00 [facility] 150 mg medroxyPROG 2019-0 Yes [id number] 150mg [facility] ESTERone 5-14 ity of (DEPO-PROVE 18:30: [place] [facility]) 00 [facility] 150 mg medroxyPROG 2019-0 Yes [id number] 150mg [facility] ESTERone 5-14 ity of (DEPO-PROVE 18:30: [place] [facility]) 00 [facility] 150 mg medroxyPROG 2019-0 Yes [id number] 150mg [facility] ESTERone 5-14 ity of (DEPO-PROVE 18:30: [place] [facility]) 00 [facility] 150 mg medroxyPROG 2019-0 Yes [id number] 150mg [facility] ESTER[facility] 5-14 ity of (DEPO-PROVE 18:30: [place] [facility]) 00 [facility] 150 mg medroxyPROG 2019-0 Yes [id number] 150mg [facility] ESTERone 5-14 ity of (DEPO-PROVE 18:30: [place] [facility]) 00 [facility] 150 mg medroxyPROG 2019-0 Yes [id number] 150mg [facility] ESTERone 5-14 ity of (DEPO-PROVE 18:30: [place] [facility]) 00 [facility] injection [facility] 150 mg medroxyPROG 2019-0 Yes [id number] 150mg [facility] ESTERone 5-14 ity of (DEPO-PROVE 18:30: [place] [facility]) 00 [facility] 150 mg medroxyPROG 2019-0 Yes [id number] 150mg [facility] ESTERone 5-14 ity of (DEPO-PROVE 18:30: [place] [facility]) 00 [facility] injection [facility] 150 mg medroxyPROG 2019-0 Yes [id number] 150mg [facility] ESTERone 5-14 ity of (DEPO-PROVE 18:30: [place] [facility]) 00 [facility] injection [facility] 150 mg medroxyPROG 2019-0 Yes [id number] 150mg [facility] ESTERone 5-14 ity of (DEPO-PROVE 18:30: [place] [facility]) 00 [facility] injection [facility] 150 mg medroxyPROG 2019-0 Yes [id number] 150mg [facility] ESTERone 5-14 ity of (DEPO-PROVE 18:30: [place] [facility]) 00 [facility] injection [facility] 150 mg medroxyPROG 2019-0 Yes [id number] 150mg [facility] ESTERone 5-14 ity of (DEPO-PROVE [...] 00:00:00 [facility] SARS-COV-2 COVID-19 2021-08-06 Completed Unive rsity of PFIZER VACCINE 00:00:00 [facility] SARS-COV-2 COVID-19 2021-08-06 Completed Unive rsity of PFIZER VACCINE 00:00:00 [facility] SARS-COV-2 COVID-19 2021-08-06 Completed Unive rsity of PFIZER VACCINE 00:00:00 [facility] SARS-COV-2 COVID-19 2021-08-06 Completed Unive rsity of PFIZER VACCINE 00:00:00 [facility] SARS-COV-2 COVID-19 2021-08-06 Completed Unive rsity of PFIZER VACCINE 00:00:00 [facility] SARS-COV-2 COVID-19 2021-08-06 Completed Unive rsity of PFIZER VACCINE 00:00:00 [facility] SARS-COV-2 COVID-19 2021-08-06 Completed Unive rsity of PFIZER VACCINE 00:00:00 [facility] SARS-COV-2 COVID-19 2021-08-06 Completed Unive rsity of PFIZER VACCINE 00:00:00 [facility] SARS-COV-2 COVID-19 2021-08-06 Completed Unive rsity of PFIZER VACCINE 00:00:00 [facility] SARS-COV-2 COVID-19 2021-08-06 Completed Unive rsity of PFIZER VACCINE 00:00:00 [facility] SARS-COV-2 COVID-19 2021-08-06 Completed Unive rsity of PFIZER VACCINE 00:00:00 [facility] SARS-COV-2 COVID-19 2021-08-06 Completed Unive rsity of PFIZER VACCINE 00:00:00 [facility] SARS-COV-2 COVID-19 2021-08-06 Completed Unive rsity of PFIZER VACCINE 00:00:00 [facility] SARS-COV-2 COVID-19 2021-08-06 Completed Unive rsity of PFIZER VACCINE 00:00:00 [facility] SARS-COV-2 COVID-19 2021-08-06 Completed Unive rsity of PFIZER VACCINE 00:00:00 [facility] SARS-COV-2 COVID-19 2021-08-06 Completed Unive rsity of PFIZER VACCINE 00:00:00 [facility] SARS-COV-2 COVID-19 2021-08-06 Completed Unive rsity of PFIZER VACCINE 00:00:00 [facility] SARS-COV-2 COVID-19 2021-08-06 Completed Unive rsity of PFIZER VACCINE 00:00:00 [facility] SARS-COV-2 COVID-19 2021-08-06 Completed Unive rsity of PFIZER VACCINE 00:00:00 [facility] SARS-COV-2 COVID-19 2021-08-06 Completed Unive rsity of PFIZER VACCINE 00:00:00 [facility] SARS-COV-2 COVID-19 2021-08-06 Completed Unive rsity of PFIZER VACCINE 00:00:00 [facility] SARS-COV-2 COVID-19 2021-08-06 Completed Unive rsity of PFIZER VACCINE 00:00:00 [facility] SARS-COV-2 COVID-19 2021-08-06 Completed Unive rsity of PFIZER VACCINE 00:00:00 [facility] SARS-COV-2 COVID-19 2021-08-06 Completed Unive rsity of PFIZER VACCINE 00:00:00 [facility] SARS-COV-2 COVID-19 2021-08-06 Completed Unive rsity of PFIZER VACCINE 00:00:00 [facility] SARS-COV-2 COVID-19 2021-08-06 Completed Unive rsity of PFIZER VACCINE 00:00:00 [facility] SARS-COV-2 COVID-19 2021-08-06 Completed Unive rsity of PFIZER VACCINE 00:00:00 [facility] SARS-COV-2 COVID-19 2021-08-06 Completed Unive rsity of PFIZER VACCINE 00:00:00 [facility] SARS-COV-2 COVID-19 2021-08-06 Completed Unive rsity of PFIZER VACCINE 00:00:00 [facility] PFIZER COVID-19 MRNA 2021-07-09 Completed Meth [...] rsity of PFIZER VACCINE 00:00:00 [facility] Influenza Virus 2021-07-09 Completed Universit y of Vaccine Quad .5 mL 00:00:00 [facility] 6[facility] SARS-COV-2 COVID-19 2021-07-09 Completed Unive rsity of PFIZER VACCINE 00:00:00 [facility] Influenza Virus 2021-07-09 Completed Universit y of Vaccine Quad .5 mL 00:00:00 [place] [facility] 6+ [facility] SARS-COV-2 COVID-19 2021-07-09 Completed Unive rsity of PFIZER VACCINE 00:00:00 [facility] Influenza Virus 2021-07-09 Completed Universit y of Vaccine Quad .5 mL 00:00:00 [place] [facility] 6+ [facility] SARS-COV-2 COVID-19 2021-07-09 Completed Unive rsity of PFIZER VACCINE 00:00:00 [facility] Influenza Virus 2021-07-09 Completed Universit y of Vaccine Quad .5 mL 00:00:00 [place] [facility] 6+ [facility] SARS-COV-2 COVID-19 2021-07-09 Completed Unive rsity of PFIZER VACCINE 00:00:00 [facility] Influenza Virus 2021-07-09 Completed Universit y of Vaccine Quad .5 mL 00:00:00 [place] [facility] 6+ [facility] SARS-COV-2 COVID-19 2021-07-09 Completed Unive rsity of PFIZER VACCINE 00:00:00 [facility] Influenza Virus 2021-07-09 Completed Universit y of Vaccine Quad .5 mL 00:00:00 [place] [facility] 6+ [facility] SARS-COV-2 COVID-19 2021-07-09 Completed Unive rsity of PFIZER VACCINE 00:00:00 [facility] Influenza Virus 2021-07-09 Completed Universit y of Vaccine Quad .5 mL 00:00:00 [place] [facility] 6+ MO [facility] SARS-COV-2 COVID-19 2021-07-09 Completed Unive rsity of PFIZER VACCINE 00:00:00 [facility] Influenza Virus 2021-07-09 Completed Universit y of Vaccine Quad .5 mL 00:00:00 [place] [facility] 6+ [facility] SARS-COV-2 COVID-19 2021-07-09 Completed Unive rsity of PFIZER VACCINE 00:00:00 [facility] Influenza Virus 2021-07-09 Completed Universit y of Vaccine Quad .5 mL 00:00:00 [place] [facility] 6+ MO [facility] SARS-COV-2 COVID-19 2021-07-09 Completed Unive rsity of PFIZER VACCINE 00:00:00 [facility] Influenza Virus 2021-07-09 Completed Universit y of Vaccine Quad .5 mL 00:00:00 [place] [facility] 6+ MO [facility] SARS-COV-2 COVID-19 2021-07-09 Completed Unive rsity of PFIZER VACCINE 00:00:00 [facility] Influenza Virus 2021-07-09 Completed Universit y of Vaccine Quad .5 mL 00:00:00 [place] [facility] 6+ MO [facility] SARS-COV-2 COVID-19 2021-07-09 Completed Unive rsity of PFIZER VACCINE 00:00:00 [facility] Influenza Virus 2021-07-09 Completed Universit y of Vaccine Quad .5 mL 00:00:00 [place] [facility] 6+ MO [facility] SARS-COV-2 COVID-19 2021-07-09 Completed Unive rsity of PFIZER VACCINE 00:00:00 [facility] Influenza Virus 2021-07-09 Completed Universit y of Vaccine Quad .5 mL 00:00:00 [place] [facility] 6[facility] SARS-COV-2 COVID-19 2021-07-09 Completed Unive rsity of PFIZER VACCINE 00:00:00 [facility] Influenza Virus 2021-07-09 Completed Universit y of Vaccine Quad .5 mL 00:00:00 [place] [facility] 6+ [facility] SARS-COV-2 COVID-19 2021-07-09 Completed Unive rsity of PFIZER VACCINE 00:00:00 [place] [facility] Influenza Virus 2021-07-09 Completed Universit y of Vaccine Quad .5 mL 00:00:00 [place] [facility] 6+ [facility] SARS-COV-2 COVID-19 2021-07-09 Completed Unive rsity of PFIZER VACCINE 00:00:00 [facility] Influenza Virus 2021-07-09 Completed Universit y of Vaccine Quad .5 mL 00:00:00 [place] [facility] 6+ [facility] SARS-COV-2 COVID-19 2021-07-09 Completed Unive rsity of PFIZER VACCINE 00:00:00 [facility] Influenza Virus 2021-07-09 Completed Universit y of Vaccine Quad .5 mL 00:00:00 [place] [facility] 6[facility] SARS-COV-2 COVID-19 2021-07-09 Completed Unive rsity of PFIZER VACCINE 00:00:00 [facility] Influenza Virus 2021-07-09 Completed Universit y of Vaccine Quad .5 mL 00:00:00 [place] [facility] 6+ MO [facility] SARS-COV-2 COVID-19 2021-07-09 Completed Unive rsity of PFIZER VACCINE 00:00:00 [facility] Influenza Virus 2021-07-09 Completed Universit y of Vaccine Quad .5 mL 00:00:00 [place] [facility] 6+ MO [facility] SARS-COV-2 COVID-19 2021-07-09 Completed Unive rsity of PFIZER VACCINE 00:00:00 [facility] Influenza Virus 2021-07-09 Completed Universit y of Vaccine Quad .5 mL 00:00:00 [place] [facility] 6[facility] SARS-COV-2 COVID-19 2021-07-09 Completed Unive rsity of PFIZER VACCINE 00:00:00 [facility] Influenza Virus 2021-07-09 Completed Universit y of Vaccine Quad .5 mL 00:00:00 [place] [facility] 6[facility] SARS-COV-2 COVID-19 2021-07-09 Completed Unive rsity of PFIZER VACCINE 00:00:00 [facility] Influenza Virus 2021-07-09 Completed Universit y of Vaccine Quad .5 mL 00:00:00 [place] [facility] 6[facility] SARS-COV-2 COVID-19 2021-07-09 Completed Unive rsity of PFIZER VACCINE 00:00:00 [facility] Influenza Virus 2021-07-09 Completed Universit y of Vaccine Quad .5 mL 00:00:00 [facility] IM 6+ MO Branch SARS-COV-2 COVID-19 2021-07-09 Completed Unive rsity of PFIZER VACCINE 00:00:00 [facility] Influenza Virus 2021-07-09 Completed Universit y of Vaccine Quad .5 mL 00:00:00 [facility] IM 6+ MO Branch SARS-COV-2 COVID-19 2021-07-09 Completed Unive rsity of PFIZER VACCINE 00:00:00 [facility] Influenza Virus 2021-07-09 Completed Universit y of Vaccine Quad .5 mL 00:00:00 [facility] 6+ MO Branch SARS-COV-2 COVID-19 2021-07-09 Completed Unive rsity of PFIZER VACCINE 00:00:00 [facility] Influenza Virus 2021-07-09 Completed Universit y of Vaccine Quad .5 mL 00:00:00 [facility] 6+ MO Branch SARS-COV-2 COVID-19 2021-07-09 Completed Unive rsity of PFIZER VACCINE 00:00:00 [facility] Influenza Virus 2021-07-09 Completed Universit y of Vaccine Quad .5 mL 00:00:00 [facility] 6+ MO Branch (FLUZONE/FLULAVAL/FL UARIX) SARS-COV-2 COVID-19 2021-07-09 Completed Unive rsity of PFIZER VACCINE 00:00:00 [facility] Influenza Virus 2021-07-09 Completed Universit y of Vaccine Quad .5 mL 00:00:00 [facility] 6+ MO Branch (FLUZONE/FLULAVAL/FL UARIX) SARS-COV-2 COVID-19 2021-07-09 Completed Unive rsity of PFIZER VACCINE 00:00:00 [facility] Influenza Virus 2021-07-09 Completed Universit y of Vaccine Quad .5 mL 00:00:00 [facility] 6+ MO Branch (FLUZONE/FLULAVAL/FL UARIX) Tetanus/Diptheria 2016-08-11 Completed Univers ity of 00:00:00 [facility] Varicella 2016-08-11 Completed University of (varivax)(chicken 00:00:00 [facility] edical pox) Branch Tetanus/Diptheria 2016-08-11 Completed Univers ity of 00:00:00 [facility] Varicella 2016-08-11 Completed University of (varivax)(chicken 00:00:00 [place] [facility] pox) [facility] Tetanus/Diptheria 2016-08-11 Completed Univers ity of 00:00:00 [facility] Varicella 2016-08-11 Completed University of (varivax)(chicken 00:00:00 [place] [facility] pox) [facility] Tetanus/Diptheria 2016-08-11 Completed Univers ity of 00:00:00 [facility] Varicella 2016-08-11 Completed University of (varivax)(chicken 00:00:00 [place] [facility] pox) [facility] Tetanus/Diptheria 2016-08-11 Completed Univers ity of 00:00:00 [facility] Varicella 2016-08-11 Completed University of (varivax)(chicken 00:00:00 [place] [facility] pox) [facility] Tetanus/Diptheria 2016-08-11 Completed Univers ity of 00:00:00 [facility] Varicella 2016-08-11 Completed University of (varivax)(chicken 00:00:00 [place] [facility] pox) [facility] Tetanus/Diptheria 2016-08-11 Completed Univers ity of 00:00:00 [facility] Varicella 2016-08-11 Completed University of (varivax)(chicken 00:00:00 [place] [facility] pox) [facility] Tetanus/Diptheria 2016-08-11 Completed Univers ity of 00:00:00 [facility] Varicella 2016-08-11 Completed University of (varivax)(chicken 00:00:00 [place] [facility] pox) [facility] Tetanus/Diptheria 2016-08-11 Completed Univers ity of 00:00:00 [facility] Varicella 2016-08-11 Completed University of (varivax)(chicken 00:00:00 [place] [facility] pox) [facility] Tetanus/Diptheria 2016-08-11 Completed Univers ity of 00:00:00 [facility] Varicella 2016-08-11 Completed University of (varivax)(chicken 00:00:00 [place] [facility] pox) [facility] Tetanus/Diptheria 2016-08-11 Completed Univers ity of 00:00:00 [facility] Varicella 2016-08-11 Completed University of (varivax)(chicken 00:00:00 [place] [facility] pox) [facility] Tetanus/Diptheria 2016-08-11 Completed Univers ity of 00:00:00 [facility] Varicella 2016-08-11 Completed University of (varivax)(chicken 00:00:00 [place] [facility] pox) [facility] Tetanus/Diptheria 2016-08-11 Completed Univers ity of 00:00:00 [facility] Varicella 2016-08-11 Completed University of (varivax)(chicken 00:00:00 [place] [facility] pox) [facility] Tetanus/Diptheria 2016-08-11 Completed Univers ity of 00:00:00 [facility] Varicella 2016-08-11 Completed University of (varivax)(chicken 00:00:00 [place] [facility] pox) [facility] Tetanus/Diptheria 2016-08-11 Completed Univers ity of 00:00:00 [facility] Varicella 2016-08-11 Completed University of (varivax)(chicken 00:00:00 [place] [facility] pox) [facility] Tetanus/Diptheria 2016-08-11 Completed Univers ity of 00:00:00 [facility] Varicella 2016-08-11 Completed University of (varivax)(chicken 00:00:00 [place] [facility] pox) [facility] Tetanus/Diptheria 2016-08-11 Completed Univers ity of 00:00:00 [facility] Varicella 2016-08-11 Completed University of (varivax)(chicken 00:00:00 [place] [facility] pox) [facility] Tetanus/Diptheria 2016-08-11 Completed Univers ity of 00:00:00 [facility] Varicella 2016-08-11 Completed University of (varivax)(chicken 00:00:00 [place] [facility] pox) [facility] Tetanus/Diptheria 2016-08-11 Completed Univers ity of 00:00:00 [facility] Varicella 2016-08-11 Completed University of (varivax)(chicken 00:00:00 [place] [facility] pox) [facility] Tetanus/Diptheria 2016-08-11 Completed Univers ity of 00:00:00 [facility] Varicella 2016-08-11 Completed University of (varivax)(chicken 00:00:00 [place] [facility] pox) Branch Tetanus/Diptheria 2016-08-11 Completed Univers ity of 00:00:00 [facility] Varicella 2016-08-11 Completed University of (varivax)(chicken 00:00:00 [place] [facility] pox) Branch Tetanus/Diptheria 2016-08-11 Completed Univers ity of 00:00:00 [facility] Varicella 2016-08-11 Completed University of (varivax)(chicken 00:00:00 [place] [facility] pox) [facility] Tetanus/Diptheria 2016-08-11 Completed Univers ity of 00:00:00 [facility] Varicella 2016-08-11 Completed University of (varivax)(chicken 00:00:00 [place] [facility] pox) Branch Tetanus/Diptheria 2016-08-11 Completed Univers ity of 00:00:00 [facility] Varicella 2016-08-11 Completed University of (varivax)(chicken 00:00:00 [place] [facility] pox) [facility] Tetanus/Diptheria 2016-08-11 Completed Univers ity of 00:00:00 [facility] Varicella 2016-08-11 Completed University of (varivax)(chicken 00:00:00 [place] [facility] pox) Branch Tetanus/Diptheria 2016-08-11 Completed Univers ity of 00:00:00 [facility] Varicella 2016-08-11 Completed University of (varivax)(chicken 00:00:00 [place] [facility] pox) [facility] Tetanus/Diptheria 2016-08-11 Completed Univers ity of 00:00:00 [facility] Varicella 2016-08-11 Completed University of (varivax)(chicken 00:00:00 [place] [facility] pox) [facility] Tetanus/Diptheria 2016-08-11 Completed Univers ity of 00:00:00 [facility] Varicella 2016-08-11 Completed University of (varivax)(chicken 00:00:00 [place] [facility] pox) [facility] Tetanus/Diptheria 2016-08-11 Completed Univers ity of 00:00:00 [facility] Varicella 2016-08-11 Completed University of (varivax)(chicken 00:00:00 [...] HEPATITIS A 2008-09-27 Completed University of 00:00:00 [facility] HPV 2008-09-27 Completed University of 00:00:00 [facility] HEPATITIS A 2008-09-27 Completed University of 00:00:00 [facility] HPV 2008-09-27 Completed University of 00:00:00 [facility] HEPATITIS A 2008-09-27 Completed University of 00:00:00 [facility] HPV 2008-09-27 Completed University of 00:00:00 [facility] HEPATITIS A 2008-09-27 Completed University of 00:00:00 [facility] HPV 2008-09-27 Completed University of 00:00:00 [facility] HEPATITIS A 2008-09-27 Completed University of 00:00:00 [facility] HPV 2008-09-27 Completed University of 00:00:00 [facility] HEPATITIS A 2008-09-27 Completed University of 00:00:00 [facility] HPV 2008-09-27 Completed University of 00:00:00 [facility] HEPATITIS A 2008-09-27 Completed University of 00:00:00 [facility] HPV 2008-09-27 Completed University of 00:00:00 [facility] HEPATITIS A 2008-09-27 Completed University of 00:00:00 [facility] HPV 2008-09-27 Completed University of 00:00:00 [facility] HEPATITIS A 2008-09-27 Completed University [...] Branch HPV 2008-09-27 Completed University of 00:00:00 [facility] HEPATITIS A 2008-09-27 Completed [facility] of 00:00:00 [facility] HPV 2008-09-27 Completed University of 00:00:00 [facility] HEPATITIS A 2008-09-27 Completed University of 00:00:00 [facility] HPV 2008-09-27 Completed University of 00:00:00 [facility] HEPATITIS A 2008-09-27 Completed University of 00:00:00 [facility] HPV 2008-09-27 Completed University of 00:00:00 [facility] HEPATITIS A 2008-09-27 Completed University of 00:00:00 [facility] HPV 2008-09-27 Completed University of 00:00:00 [facility] HEPATITIS A 2008-09-27 Completed University of 00:00:00 [facility] HPV 2008-09-27 Completed University of 00:00:00 [facility] HEPATITIS A 2008-09-27 Completed University [...] Branch HPV 2008-03-06 Completed University of 00:00:00 [facility] HEPATITIS A 2008-03-06 Completed University of 00:00:00 [facility] HPV 2008-03-06 Completed University of 00:00:00 [facility] HEPATITIS A 2008-03-06 Completed University of 00:00:00 [facility] HPV 2008-03-06 Completed University of 00:00:00 [facility] HEPATITIS A 2008-03-06 Completed University of 00:00:00 [facility] HPV 2008-03-06 Completed University of 00:00:00 [facility] HEPATITIS A 2008-03-06 Completed [facility] 00:00:00 [facility] HPV 2008-03-06 Completed [facility] 00:00:00 [facility] HEPATITIS A 2008-03-06 Completed [facility] 00:00:00 [facility] HPV 2008-03-06 Completed [facility] 00:00:00 [facility] HEPATITIS A 2008-03-06 Completed [facility] 00:00:00 [facility] HPV 2008-03-06 Completed [facility] 00:00:00 [facility] HEPATITIS A 2008-03-06 Completed [facility] 00:00:00 [facility] HPV 2008-03-06 Completed [facility] 00:00:00 [facility] Meningococcal 2007-12-29 Completed [facility] Polysaccharide 00:00:00 [facility] (groups A, C, Y and Branc h W-135) conjugate vaccine (MCV4P) TDAP 2007-12-29 Completed [facility] 00:00:00 [facility] Meningococcal 2007-12-29 Completed [facility] Polysaccharide 00:00:00 [facility] (groups A, C, Y and Branc h W-135) conjugate vaccine (MCV4P) TDAP 2007-12-29 Completed [facility] 00:00:00 [facility] Meningococcal 2007-12-29 Completed [facility] Polysaccharide 00:00:00 [facility] (groups A, C, Y and Branc h W-135) conjugate vaccine (MCV4P) TDAP 2007-12-29 Completed [facility] 00:00:00 [facility] Meningococcal 2007-12-29 Completed [facility] Polysaccharide 00:00:00 [place] [facility] (groups A, C, Y and Branc h W-135) conjugate vaccine (MCV4P) TDAP 2007-12-29 Completed [facility] 00:00:00 [facility] Meningococcal 2007-12-29 Completed [facility] Polysaccharide 00:00:00 [place] [facility] (groups A, C, Y and Branc h W-135) conjugate vaccine (MCV4P) TDAP 2007-12-29 Completed [facility] 00:00:00 [facility] Meningococcal 2007-12-29 Completed [facility] Polysaccharide 00:00:00 [place] [facility] (groups A, C, Y and Branc h W-135) conjugate vaccine (MCV4P) TDAP 2007-12-29 Completed [facility] 00:00:00 [facility] Meningococcal 2007-12-29 Completed [facility] Polysaccharide 00:00:00 [place] [facility] (groups A, C, Y and Branc h W-135) conjugate vaccine (MCV4P) TDAP 2007-12-29 Completed [facility] 00:00:00 [facility] Meningococcal 2007-12-29 Completed [facility] Polysaccharide 00:00:00 [place] [facility] (groups A, C, Y and Branc h W-135) conjugate vaccine (MCV4P) TDAP 2007-12-29 Completed [facility] 00:00:00 [facility] Meningococcal 2007-12-29 Completed [facility] Polysaccharide 00:00:00 [place] [facility] (groups A, C, Y and Branc h W-135) conjugate vaccine (MCV4P) TDAP 2007-12-29 Completed [facility] 00:00:00 [facility] Meningococcal 2007-12-29 Completed [facility] Polysaccharide 00:00:00 [place] [facility] (groups A, C, Y and Branc h W-135) conjugate vaccine (MCV4P) TDAP 2007-12-29 Completed [facility] 00:00:00 [facility] Meningococcal 2007-12-29 Completed [facility] Polysaccharide 00:00:00 [place] [facility] (groups A, C, Y and Branc h W-135) conjugate vaccine (MCV4P) TDAP 2007-12-29 Completed [facility] 00:00:00 [facility] Meningococcal 2007-12-29 Completed [facility] Polysaccharide 00:00:00 [place] [facility] (groups A, C, Y and Branc h W-135) conjugate vaccine (MCV4P) TDAP 2007-12-29 Completed [facility] 00:00:00 [facility] Meningococcal 2007-12-29 Completed [facility] Polysaccharide 00:00:00 [place] [facility] (groups A, C, Y and Branc h W-135) conjugate vaccine (MCV4P) TDAP 2007-12-29 Completed [facility] 00:00:00 [facility] Meningococcal 2007-12-29 Completed [facility] Polysaccharide 00:00:00 [place] [facility] (groups A, C, Y and Branc h W-135) conjugate vaccine (MCV4P) TDAP 2007-12-29 Completed [facility] 00:00:00 [facility] Meningococcal 2007-12-29 Completed [facility] Polysaccharide 00:00:00 [place] [facility] (groups A, C, Y and Branc h W-135) conjugate vaccine (MCV4P) TDAP 2007-12-29 Completed [facility] 00:00:00 [facility] Meningococcal 2007-12-29 Completed [facility] Polysaccharide 00:00:00 [place] [facility] (groups A, C, Y and Branc h W-135) conjugate vaccine (MCV4P) TDAP 2007-12-29 Completed [facility] 00:00:00 [facility] Meningococcal 2007-12-29 Completed [facility] Polysaccharide 00:00:00 [place] [facility] (groups A, C, Y and Branc h W-135) conjugate vaccine (MCV4P) TDAP 2007-12-29 Completed [facility] 00:00:00 [facility] Meningococcal 2007-12-29 Completed [facility] Polysaccharide 00:00:00 [place] [facility] (groups A, C, Y and Branc h W-135) conjugate vaccine (MCV4P) TDAP 2007-12-29 Completed [facility] 00:00:00 [facility] Meningococcal 2007-12-29 Completed [facility] Polysaccharide 00:00:00 [place] [facility] (groups A, C, Y and Branc h W-135) conjugate vaccine (MCV4P) TDAP 2007-12-29 Completed [facility] 00:00:00 [facility] Meningococcal 2007-12-29 Completed [facility] Polysaccharide 00:00:00 [place] [facility] (groups A, C, Y and Branc h W-135) conjugate vaccine (MCV4P) TDAP 2007-12-29 Completed [facility] 00:00:00 [facility] Meningococcal 2007-12-29 Completed [facility] Polysaccharide 00:00:00 [place] [facility] (groups A, C, Y and Branc h W-135) conjugate vaccine (MCV4P) TDAP 2007-12-29 Completed [facility] 00:00:00 [facility] Meningococcal 2007-12-29 Completed [facility] Polysaccharide 00:00:00 [place] [facility] (groups A, C, Y and Branc h W-135) conjugate vaccine (MCV4P) TDAP 2007-12-29 Completed [facility] 00:00:00 [facility] Meningococcal 2007-12-29 Completed [facility] Polysaccharide 00:00:00 [place] [facility] (groups A, C, Y and Branc h W-135) conjugate vaccine (MCV4P) TDAP 2007-12-29 Completed [facility] 00:00:00 [facility] Meningococcal 2007-12-29 Completed [facility] Polysaccharide 00:00:00 [place] [facility] (groups A, C, Y and Branc h W-135) conjugate vaccine (MCV4P) TDAP 2007-12-29 Completed [facility] 00:00:00 [facility] Meningococcal 2007-12-29 Completed [facility] Polysaccharide 00:00:00 [place] [facility] (groups A, C, Y and Branc h W-135) conjugate vaccine (MCV4P) TDAP 2007-12-29 Completed [facility] 00:00:00 [facility] Meningococcal 2007-12-29 Completed [facility] Polysaccharide 00:00:00 [place] [facility] (groups A, C, Y and Branc h W-135) conjugate vaccine (MCV4P) TDAP 2007-12-29 Completed [facility] 00:00:00 [facility] Meningococcal 2007-12-29 Completed [facility] Polysaccharide 00:00:00 [place] [facility] (groups A, C, Y and Branc h W-135) conjugate vaccine (MCV4P) TDAP 2007-12-29 Completed [facility] 00:00:00 [facility] Meningococcal 2007-12-29 Completed [facility] Polysaccharide 00:00:00 [facility] shanice (groups A, C, Y and Branc h W-135) conjugate vaccine (MCV4P) TDAP 2007-12-29 Completed [facility] 00:00:00 [facility] Meningococcal 2007-12-29 Completed [facility] Polysaccharide 00:00:00 [facility] shanice (groups A, C, Y and Branc h W-135) conjugate vaccine (MCV4P) TDAP 2007-12-29 Completed [facility] 00:00:00 [facility] DTaP, Unspecified 1998-01-03 Completed [facility] Formulation 00:00:00 [facility] Hep B, Adol or Pedi 1998-01-03 Completed Unive rsity of Dosage 00:00:00 [facility] Poliovirus, Live, 1998-01-03 Completed [facility] Oral, Trivalent 00:00:00 [facility] DTaP, Unspecified 1998-01-03 Completed [facility] Formulation 00:00:00 [facility] Hep B, Adol or Pedi 1998-01-03 Completed Unive rsity of Dosage 00:00:00 [facility] Poliovirus, Live, 1998-01-03 Completed [facility] of Oral, Trivalent 00:00:00 [facility] DTaP, Unspecified 1998-01-03 Completed [facility] Formulation 00:00:00 [facility] Hep B, Adol or Pedi 1998-01-03 Completed Unive rsity of Dosage 00:00:00 [facility] Poliovirus, Live, 1998-01-03 Completed [facility] of Oral, Trivalent 00:00:00 [facility] DTaP, Unspecified 1998-01-03 Completed [facility] of Formulation 00:00:00 [facility] Hep B, Adol or Pedi 1998-01-03 Completed Unive rsity of Dosage 00:00:00 [facility] Poliovirus, Live, 1998-01-03 Completed [facility] of Oral, Trivalent 00:00:00 [facility] DTaP, Unspecified 1998-01-03 Completed [facility] Formulation 00:00:00 [facility] Hep B, Adol or Pedi 1998-01-03 Completed Unive rsity of Dosage 00:00:00 [facility] Poliovirus, Live, 1998-01-03 Completed [facility] of Oral, Trivalent 00:00:00 [facility] DTaP, Unspecified 1998-01-03 Completed [facility] of Formulation 00:00:00 [facility] Hep B, Adol or Pedi 1998-01-03 Completed Unive rsity of Dosage 00:00:00 [facility] Poliovirus, Live, 1998-01-03 Completed [facility] of Oral, Trivalent 00:00:00 [facility] DTaP, Unspecified 1998-01-03 Completed [facility] of Formulation 00:00:00 [facility] Hep B, Adol or Pedi 1998-01-03 Completed [facility]ive rsity of Dosage 00:00:00 [facility] Poliovirus, Live, 1998-01-03 Completed [facility] of Oral, Trivalent 00:00:00 [facility] DTaP, Unspecified 1998-01-03 Completed [facility] Formulation 00:00:00 [facility] Hep B, Adol or Pedi 1998-01-03 Completed Unive rsity of Dosage 00:00:00 [facility] Poliovirus, Live, 1998-01-03 Completed [facility] of Oral, Trivalent 00:00:00 [facility] DTaP, Unspecified 1998-01-03 Completed [facility] Formulation 00:00:00 [facility] Hep B, Adol or Pedi 1998-01-03 Completed Unive rsity of Dosage 00:00:00 [facility] Poliovirus, Live, 1998-01-03 Completed [facility] of Oral, Trivalent 00:00:00 [facility] DTaP, Unspecified 1998-01-03 Completed [facility] Formulation 00:00:00 [facility] Hep B, Adol or Pedi 1998-01-03 Completed [facility]ive rsity of Dosage 00:00:00 [facility] Poliovirus, Live, 1998-01-03 Completed [facility] Oral, Trivalent 00:00:00 [facility] DTaP, Unspecified 1998-01-03 Completed [facility] Formulation 00:00:00 [facility] Hep B, Adol or Pedi 1998-01-03 Completed [facility]ive rsity of Dosage 00:00:00 [facility] Poliovirus, Live, 1998-01-03 Completed [facility] Oral, Trivalent 00:00:00 [facility] DTaP, Unspecified 1998-01-03 Completed [facility] Formulation 00:00:00 [facility] Hep B, Adol or Pedi 1998-01-03 Completed Unive rsity of Dosage 00:00:00 [facility] Poliovirus, Live, 1998-01-03 Completed [facility] Oral, Trivalent 00:00:00 [facility] DTaP, Unspecified 1998-01-03 Completed [facility] Formulation 00:00:00 [facility] Hep B, Adol or Pedi 1998-01-03 Completed Unive rsity of Dosage 00:00:00 [facility] Poliovirus, Live, 1998-01-03 Completed [facility] Oral, Trivalent 00:00:00 [facility] DTaP, Unspecified 1998-01-03 Completed [facility] Formulation 00:00:00 [facility] Hep B, Adol or Pedi 1998-01-03 Completed Unive rsity of Dosage 00:00:00 [facility] Poliovirus, Live, 1998-01-03 Completed [facility] of Oral, Trivalent 00:00:00 [facility] DTaP, Unspecified 1998-01-03 Completed [facility] Formulation 00:00:00 [facility] Hep B, Adol or Pedi 1998-01-03 Completed [facility]ive rsity of Dosage 00:00:00 [facility] Poliovirus, Live, 1998-01-03 Completed [facility] Oral, Trivalent 00:00:00 [facility] DTaP, Unspecified 1998-01-03 Completed [facility] Formulation 00:00:00 [facility] Hep B, Adol or Pedi 1998-01-03 Completed [facility]ive rsity of Dosage 00:00:00 [facility] Poliovirus, Live, 1998-01-03 Completed [facility] of Oral, Trivalent 00:00:00 [facility] DTaP, Unspecified 1998-01-03 Completed [facility] Formulation 00:00:00 [facility] Hep B, Adol or Pedi 1998-01-03 Completed [facility]ive rsity of Dosage 00:00:00 [facility] Poliovirus, Live, 1998-01-03 Completed [facility] Oral, Trivalent 00:00:00 [facility] DTaP, Unspecified 1998-01-03 Completed [facility] Formulation 00:00:00 [facility] Hep B, Adol or Pedi 1998-01-03 Completed [facility]ive rsity of Dosage 00:00:00 [facility] Poliovirus, Live, 1998-01-03 Completed [facility] Oral, Trivalent 00:00:00 [facility] DTaP, Unspecified 1998-01-03 Completed [facility] Formulation 00:00:00 [facility] Hep B, Adol or Pedi 1998-01-03 Completed [facility]ive rsity of Dosage 00:00:00 [facility] Poliovirus, Live, 1998-01-03 Completed [facility] Oral, Trivalent 00:00:00 [facility] DTaP, Unspecified 1998-01-03 Completed [facility] Formulation 00:00:00 [facility] Hep B, Adol or Pedi 1998-01-03 Completed [facility]ive rsity of Dosage 00:00:00 [facility] Poliovirus, Live, 1998-01-03 Completed [facility] Oral, Trivalent 00:00:00 [facility] DTaP, Unspecified 1998-01-03 Completed [facility] Formulation 00:00:00 [facility] Hep B, Adol or Pedi 1998-01-03 Completed Unive rsity of Dosage 00:00:00 [facility] Poliovirus, Live, 1998-01-03 Completed [facility] Oral, Trivalent 00:00:00 [facility] DTaP, Unspecified 1998-01-03 Completed [facility] Formulation 00:00:00 [facility] Hep B, Adol or Pedi 1998-01-03 Completed [facility]ive rsity of Dosage 00:00:00 [facility] Poliovirus, Live, 1998-01-03 Completed [facility] of Oral, Trivalent 00:00:00 [facility] DTaP, Unspecified 1998-01-03 Completed [facility] of Formulation 00:00:00 [facility] Hep B, Adol or Pedi 1998-01-03 Completed [facility]ive rsity of Dosage 00:00:00 [facility] Poliovirus, Live, 1998-01-03 Completed [facility] Oral, Trivalent 00:00:00 [facility] DTaP, Unspecified 1998-01-03 Completed [facility] Formulation 00:00:00 [facility] Hep B, Adol or Pedi 1998-01-03 Completed [facility]ive rsity of Dosage 00:00:00 [facility] Poliovirus, Live, 1998-01-03 Completed [facility] Oral, Trivalent 00:00:00 [facility] DTaP, Unspecified 1998-01-03 Completed [facility] Formulation 00:00:00 [facility] Hep B, Adol or Pedi 1998-01-03 Completed [facility] of Dosage 00:00:00 [facility] Poliovirus, Live, 1998-01-03 Completed [facility] Oral, Trivalent 00:00:00 [facility] DTaP, Unspecified 1998-01-03 Completed [facility] Formulation 00:00:00 [facility] Hep B, Adol or Pedi 1998-01-03 Completed [facility]ive rsity of Dosage 00:00:00 [facility] Poliovirus, Live, 1998-01-03 Completed [facility] Oral, Trivalent 00:00:00 [facility] DTaP, Unspecified 1998-01-03 Completed [facility] Formulation 00:00:00 [facility] Hep B, Adol or Pedi 1998-01-03 Completed [facility]ive [facility] of Dosage 00:00:00 [facility] Poliovirus, Live, 1998-01-03 Completed [facility] Oral, Trivalent 00:00:00 [facility] DTaP, Unspecified 1998-01-03 Completed [facility] Formulation 00:00:00 [facility] Hep B, Adol or Pedi 1998-01-03 Completed [facility]ive rsity of Dosage 00:00:00 [facility] Poliovirus, Live, 1998-01-03 Completed [facility] Oral, Trivalent 00:00:00 [facility] DTaP, Unspecified 1998-01-03 Completed [facility] Formulation 00:00:00 [facility] Hep B, Adol or Pedi 1998-01-03 Completed [facility] of Dosage 00:00:00 [facility] Poliovirus, Live, 1998-01-03 Completed [facility] Oral, Trivalent 00:00:00 [facility] Hep B, Unspecified 1997-03-28 Completed Univer [facility]ity of Formulation 00:00:00 [facility] Hep B, Adol or Pedi 1997-03-28 Completed Unive rsity of Dosage 00:00:00 [facility] MMR 1997-03-28 Completed [facility] 00:00:00 [facility] Hep B, Unspecified 1997-03-28 Completed Univer [facility] of Formulation 00:00:00 [facility] Hep B, Adol or Pedi 1997-03-28 Completed Unive rsity of Dosage 00:00:00 [facility] MMR 1997-03-28 Completed [facility] 00:00:00 [facility] Hep B, Unspecified 1997-03-28 Completed Univer [facility]ity of Formulation 00:00:00 [facility] Hep B, Adol or Pedi 1997-03-28 Completed [facility] of Dosage 00:00:00 [facility] MMR 1997-03-28 Completed [facility] 00:00:00 [place] [...] 1997-03-28 Completed [facility] of Dosage 00:00:00 [facility] MMR 1997-03-28 Completed [facility] 00:00:00 [facility] Hep B, Unspecified 1997-03-28 Completed [facility]iver [facility] of Formulation 00:00:00 [facility] Hep B, Adol or Pedi 1997-03-28 Completed [facility]ive rs[facility] of Dosage 00:00:00 [facility] MMR 1997-03-28 Completed [facility] 00:00:00 [facility] Hep B, Unspecified 1997-03-28 Completed [facility]iver [facility] of Formulation 00:00:00 [facility] Hep B, Adol or Pedi 1997-03-28 Completed [facility]ive rs[facility] of Dosage 00:00:00 [facility] MMR 1997-03-28 Completed [facility] 00:00:00 [facility] Hep B, Unspecified 1997-03-28 Completed [facility]iver [facility]ity of Formulation 00:00:00 [facility] Hep B, Adol or Pedi 1997-03-28 Completed Unive rsity of Dosage 00:00:00 [facility] MMR 1997-03-28 Completed [facility] 00:00:00 [facility] Hep B, Unspecified 1997-03-28 Completed [facility]iver [facility]ity of Formulation 00:00:00 [facility] Hep B, Adol or Pedi 1997-03-28 Completed Unive rs[facility] of Dosage 00:00:00 [facility] MMR 1997-03-28 Completed [facility] 00:00:00 [facility] Hep B, Unspecified 1997-03-28 Completed Univer [facility]ity of Formulation 00:00:00 [facility] Hep B, Adol or Pedi 1997-03-28 Completed Unive rs[facility] of Dosage 00:00:00 [facility] MMR 1997-03-28 Completed [facility] 00:00:00 [facility] Hep B, Unspecified 1997-03-28 Completed [facility]iver [facility]ity of Formulation 00:00:00 [facility] Hep B, Adol or Pedi 1997-03-28 Completed [facility] rs[facility] of Dosage 00:00:00 [facility] MMR 1997-03-28 Completed [facility] 00:00:00 [facility] Hep B, Unspecified 1997-03-28 Completed [facility]iver [facility] of Formulation 00:00:00 [facility] Hep B, Adol or Pedi 1997-03-28 Completed [facility]ive rs[facility] of Dosage 00:00:00 [facility] MMR 1997-03-28 Completed [facility] 00:00:00 [facility] Hep B, Unspecified 1997-03-28 Completed [facility]iver [facility] of Formulation 00:00:00 [facility] Hep B, Adol or Pedi 1997-03-28 Completed Un[facility] rs[facility] of Dosage 00:00:00 [facility] MMR 1997-03-28 Completed [facility] 00:00:00 [facility] Hep B, Unspecified 1997-03-28 Completed [facility] of Formulation 00:00:00 [facility] Hep B, Adol or Pedi 1997-03-28 Completed [facility] rs[facility] of Dosage 00:00:00 [facility] MMR 1997-03-28 Completed [facility] 00:00:00 [facility] Hep B, Unspecified 1997-03-28 Completed [facility]iver [facility]ity of Formulation 00:00:00 [facility] Hep B, Adol or Pedi 1997-03-28 Completed Un[facility] rs[facility] of Dosage 00:00:00 [facility] MMR 1997-03-28 Completed [facility] 00:00:00 [facility] Hep B, Unspecified 1997-03-28 Completed [facility] of Formulation 00:00:00 [facility] Hep B, Adol or Pedi 1997-03-28 Completed [facility] rs[facility] of Dosage 00:00:00 [facility] MMR 1997-03-28 Completed [facility] 00:00:00 [facility] Hep B, Unspecified 1997-03-28 Completed [facility] of Formulation 00:00:00 [facility] Hep B, Adol or Pedi 1997-03-28 Completed [facility]ive rs[facility] of Dosage 00:00:00 [facility] MMR 1997-03-28 Completed [facility] 00:00:00 [facility] Hep B, Unspecified 1997-03-28 Completed Univer [facility]ity of Formulation 00:00:00 [facility] Hep B, Adol or Pedi 1997-03-28 Completed Unive rsity of Dosage 00:00:00 [facility] MMR 1997-03-28 Completed [facility] 00:00:00 [facility] Hep B, Unspecified 1997-03-28 Completed [facility] of Formulation 00:00:00 [facility] Hep B, Adol or Pedi 1997-03-28 Completed Unive rs[facility] of Dosage 00:00:00 [facility] MMR 1997-03-28 Completed [facility] 00:00:00 [facility] Hep B, Unspecified 1997-03-28 Completed Univer [facility]ity of Formulation 00:00:00 [facility] Hep B, Adol or Pedi 1997-03-28 Completed [facility] rs[facility] of Dosage 00:00:00 [facility] MMR 1997-03-28 Completed [facility] 00:00:00 [facility] Hep B, Unspecified 1997-03-28 Completed Univer [facility] of Formulation 00:00:00 [facility] Hep B, Adol or Pedi 1997-03-28 Completed [facility] of Dosage 00:00:00 [facility] MMR 1997-03-28 Completed [facility] 00:00:00 [facility] Hep B, Unspecified 1997-03-28 Completed [facility] of Formulation 00:00:00 [facility] Hep B, Adol or Pedi 1997-03-28 Completed [facility] of Dosage 00:00:00 [facility] MMR 1997-03-28 Completed [facility] 00:00:00 [facility] Hep B, Unspecified 1997-03-28 Completed [facility] Formulation 00:00:00 [facility] Hep B, Adol or Pedi 1997-03-28 Completed [facility] Dosage 00:00:00 [facility] MMR 1997-03-28 Completed [facility] 00:00:00 [facility] Hep B, Unspecified 1997-03-28 Completed [facility] Formulation 00:00:00 [facility] Hep B, Adol or Pedi 1997-03-28 Completed [facility] Dosage 00:00:00 [facility] MMR 1997-03-28 Completed [facility] 00:00:00 [facility] Hep B, Unspecified 1997-03-28 Completed [facility] Formulation 00:00:00 [facility] Hep B, Adol or Pedi 1997-03-28 Completed [facility] Dosage 00:00:00 [facility] MMR 1997-03-28 Completed [facility] 00:00:00 [facility] Hep B, Unspecified 1997-03-28 Completed [facility] Formulation 00:00:00 [facility] Hep B, Adol or Pedi 1997-03-28 Completed [facility] Dosage 00:00:00 [facility] 1997-03-28 Completed [facility] 00:00:00 [facility] Hep B, Unspecified 1997-03-28 Completed [facility] Formulation 00:00:00 [facility] Hep B, Adol or Pedi 1997-03-28 Completed [facility] rs[facility] of Dosage 00:00:00 [facility] MMR 1997-03-28 Completed [facility] 00:00:00 [facility] Hep B, Unspecified 1997-03-28 Completed [facility] Formulation 00:00:00 [facility] Hep B, Adol or Pedi 1997-03-28 Completed [facility] Dosage 00:00:00 [facility] 1997-03-28 Completed [facility] 00:00:00 [facility] Hep B, Unspecified 1997-03-28 Completed [facility] Formulation 00:00:00 [facility] Hep B, Adol or Pedi 1997-03-28 Completed [facility] Dosage 00:00:00 [facility] 1997-03-28 Completed [facility] 00[facility]00 [facility] 1994-[facility] Com[facility] 00:00:00 [facility] Hib-HbOC 1994-05-19 Completed [facility] 00:00:00 [facility] 1994-05-19 Completed [facility] 00:00:00 [facility] Poliovirus, Live, 1994-05-19 Completed Univers ity of Oral, Trivalent 00:00:00 [facility] DTP 1994-05-19 Completed University of 00:00:00 [facility] Hib-HbOC 1994-05-19 Completed [facility] of 00:00:00 [facility] MMR 1994-05-19 Completed [facility] of 00:00:00 [facility] Poliovirus, Live, 1994-05-19 Completed Univers ity of Oral, Trivalent 00:00:00 [facility] DTP 1994-05-19 Completed University of 00:00:00 [facility] Hib-HbOC 1994-05-19 Completed University of 00:00:00 [facility] MMR 1994-05-19 Completed [facility] 00:00:00 [facility] Poliovirus, Live, 1994-05-19 Completed [facility] of Oral, Trivalent 00:00:00 [facility] 1994-05-19 Completed [facility] 00:00:00 [facility] Hib-HbOC 1994-05-19 Completed University of 00:00:00 [facility] MMR 1994-05-19 Completed [facility] of 00:00:00 [facility] Poliovirus, Live, 1994-05-19 Completed Univers [facility]y of Oral, Trivalent 00:00:00 [facility] 1994-05-19 Completed [facility] of 00:00:00 [facility] Hib-HbOC 1994-05-19 Completed [facility] of 00:00:00 [facility] MMR 1994-05-19 Completed [facility] of 00:00:00 [facility] Poliovirus, Live, 1994-05-19 Completed Univers [facility] of Oral, Trivalent 00:00:00 [facility] 1994-05-19 Completed [facility] 00:00:00 [facility] Hib-HbOC 1994-05-19 Completed [facility] of 00:00:00 [facility] MMR 1994-05-19 Completed [facility] of 00:00:00 [facility] Poliovirus, Live, 1994-05-19 Completed [facility] of Oral, Trivalent 00:00:00 [facility] 1994-05-19 Completed [facility] 00:00:00 [facility] Hib-HbOC 1994-05-19 Completed [facility] of 00:00:00 [facility] MMR 1994-05-19 Completed [facility] of 00:00:00 [facility] Poliovirus, Live, 1994-05-19 Completed Univers [facility]y of Oral, Trivalent 00:00:00 [facility] 1994-05-19 Completed [facility] of 00:00:00 [facility] Hib-HbOC 1994-05-19 Completed [facility] of 00:00:00 [facility] MMR 1994-05-19 Completed [facility] of 00:00:00 [facility] Poliovirus, Live, 1994-05-19 Completed Univers [facility]y of Oral, Trivalent 00:00:00 [facility] 1994-05-19 Completed [facility] of 00:00:00 [facility] Hib-HbOC 1994-05-19 Completed University of 00:00:00 [facility] MMR 1994-05-19 Completed University of 00:00:00 [facility] Poliovirus, Live, 1994-05-19 Completed Univers [facility] of Oral, Trivalent 00:00:00 [facility] 1994-05-19 Completed [facility] of 00:00:00 [facility] Hib-HbOC 1994-05-19 Completed [facility] of 00:00:00 [facility] MMR 1994-05-19 Completed [facility] of 00:00:00 [facility] Poliovirus, Live, 1994-05-19 Completed [facility] of Oral, Trivalent 00:00:00 [facility] 1994-05-19 Completed [facility] of 00:00:00 [facility] Hib-HbOC 1994-05-19 Completed [facility] of 00:00:00 [facility] MMR 1994-05-19 Completed [facility] of 00:00:00 [facility] Poliovirus, Live, 1994-05-19 Completed [facility] of Oral, Trivalent 00:00:00 [facility] 1994-05-19 Completed [facility] of 00:00:00 [facility] Hib-HbOC 1994-05-19 Completed [facility] of 00:00:00 [facility] MMR 1994-05-19 Completed [facility] of 00:00:00 [facility] Poliovirus, Live, 1994-05-19 Completed Univers [facility]y of Oral, Trivalent 00:00:00 [facility] 1994-05-19 Completed University of 00:00:00 [facility] Hib-HbOC 1994-05-19 Completed University of 00:00:00 [facility] MMR 1994-05-19 Completed University of 00:00:00 [facility] Poliovirus, Live, 1994-05-19 Completed [facility] of Oral, Trivalent 00:00:00 [facility] 1994-05-19 Completed [facility] of 00:00:00 [facility] Hib-HbOC 1994-05-19 Completed University of 00:00:00 [facility] MMR 1994-05-19 Completed [facility] of 00:00:00 [facility] Poliovirus, Live, 1994-05-19 Completed [facility] of Oral, Trivalent 00:00:00 [facility] 1994-05-19 Completed [facility] of 00:00:00 [facility] Hib-HbOC 1994-05-19 Completed [facility] of 00:00:00 [facility] MMR 1994-05-19 Completed [facility] of 00:00:00 [facility] Poliovirus, Live, 1994-05-19 Completed [facility] of Oral, Trivalent 00:00:00 [facility] 1994-05-19 Completed [facility] of 00:00:00 [facility] Hib-HbOC 1994-05-19 Completed [facility] of 00:00:00 [facility] MMR 1994-05-19 Completed [facility] of 00:00:00 [facility] Poliovirus, Live, 1994-05-19 Completed [facility] of Oral, Trivalent 00:00:00 [facility] 1994-05-19 Completed [facility] of 00:00:00 [facility] Hib-HbOC 1994-05-19 Completed University of 00:00:00 [facility] MMR 1994-05-19 Completed [facility] of 00:00:00 [facility] Poliovirus, Live, 1994-05-19 Completed [facility] of Oral, Trivalent 00:00:00 [facility] 1994-05-19 Completed [facility] of 00:00:00 [facility] Hib-HbOC 1994-05-19 Completed [facility] of 00:00:00 [facility] MMR 1994-05-19 Completed [facility] of 00:00:00 [facility] Poliovirus, Live, 1994-05-19 Completed [facility] of Oral, Trivalent 00:00:00 [facility] 1994-05-19 Completed [facility] of 00:00:00 [facility] Hib-HbOC 1994-05-19 Completed University of 00:00:00 [facility] MMR 1994-05-19 Completed [facility] of 00:00:00 [facility] Poliovirus, Live, 1994-05-19 Completed Univers [facility] of Oral, Trivalent 00:00:00 [facility] 1994-05-19 Completed [facility] of 00:00:00 [facility] Hib-HbOC 1994-05-19 Completed [facility] of 00:00:00 [facility] MMR 1994-05-19 Completed [facility] of 00:00:00 [facility] Poliovirus, Live, 1994-05-19 Completed [facility] of Oral, Trivalent 00:00:00 [facility] 1994-05-19 Completed [facility] of 00:00:00 [facility] Hib-HbOC 1994-05-19 Completed [facility] of 00:00:00 [facility] MMR 1994-05-19 Completed University of 00:00:00 [facility] Poliovirus, Live, 1994-05-19 Completed Univers [facility]y of Oral, Trivalent 00:00:00 [facility] DT 1994-05-19 Completed University of 00:00:00 [facility] Hib-HbOC 1994-05-19 Completed University of 00:00:00 [facility] MMR 1994-05-19 Completed University of 00:00:00 [facility] Poliovirus, Live, 1994-05-19 Completed [facility] of Oral, Trivalent 00:00:00 [facility] 1994-05-19 Completed [facility] of 00:00:00 [facility] Hib-HbOC 1994-05-19 Completed University of 00:00:00 [facility] MMR 1994-05-19 Completed [facility] of 00:00:00 [facility] Poliovirus, Live, 1994-05-19 Completed [facility] of Oral, Trivalent 00:00:00 [facility] 1994-05-19 Completed [facility] of 00:00:00 [facility] Hib-HbOC 1994-05-19 Completed [facility] of 00:00:00 [facility] MMR 1994-05-19 Completed [facility] of 00:00:00 [facility] Poliovirus, Live, 1994-05-19 Completed [facility] of Oral, Trivalent 00:00:00 [facility] 1994-05-19 Completed [facility] of 00:00:00 [facility] Hib-HbOC 1994-05-19 Completed [facility] of 00:00:00 [facility] MMR 1994-05-19 Completed [facility] of 00:00:00 [facility] Poliovirus, Live, 1994-05-19 Completed [facility] of Oral, Trivalent 00:00:00 [facility] DT 1994-05-19 Completed University of 00:00:00 [facility] Hib-HbOC 1994-05-19 Completed [facility] of 00:00:00 [facility] MMR 1994-05-19 Completed [facility] of 00:00:00 [facility] Poliovirus, Live, 1994-05-19 Completed [facility], [facility] 00:00:00 [facility] Hib-HbOC 1994-05-19 Completed [facility] of 00:00:00 [facility] MMR 1994-05-19 Completed [facility] of 00:00:00 [facility] Poliovirus, Live, 1994-05-19 Completed Univers [facility]y of Oral, Trivalent 00:00:00 [facility] DTP 1994-05-19 Completed University of 00:00:00 [facility] Hib-HbOC 1994-05-19 Completed [facility] of 00:00:00 [facility] MMR 1994-05-19 Completed [facility] of 00:00:00 [facility] Poliovirus, Live, 1994-05-19 Completed [facility] of Oral, Trivalent 00:00:00 [facility] DTP 1994-05-19 Completed [facility] of 00:00:00 [facility] Hib-HbOC 1994-05-19 Completed [facility] of 00:00:00 [facility] MMR 1994-05-19 Completed [facility] of 00:00:00 [facility] Poliovirus, Live, 1994-05-19 Completed [facility] of Oral, Trivalent 00:00:00 [facility] Heophilus 1994-05-09 Completed [facility] Influ[facility] Influenza B [facility] Influenza B [facility]:00[facility] Influenza B [facility]:00[facility] Influenza B [facility]:00[facility] Influenza B [facility] Influenza B [facility] Influ[facility] Influenza B 00:00:00 [facility] 1994-05-09 Completed [facility] of Influenza B 00:00:00 [facility] 1994-05-09 Completed [facility] of Influenza B 00:00:00 [facility] 1994-05-09 Completed [facility] of Influenza B 00:00:00 [facility] 1994-05-09 Completed [facility] of Influenza B 00:00:00 [facility] 1994-05-09 Completed [facility] of Influenza B 00:00:00 [facility] 1994-05-09 Completed [facility] of Influenza B 00:00:00 [facility] 1994-05-09 Completed [facility] of Influenza B 00:00:00 [facility] 1994-05-09 Completed [facility] of Influenza B 00:00:00 [facility] 1994-05-09 Completed [facility] of Influenza B 00:00:00 [facility] 1994-05-09 Completed [facility] of Influenza B 00:00:00 [facility] 1994-05-09 Completed [facility] of Influenza B 00:00:00 [facility] 1994-05-09 Completed [facility] of Influenza B 00:00:00 [facility] 1994-05-09 Completed [facility] of Influenza B 00:00:00 [facility] 1994-05-09 Completed [facility] of Influenza B 00:00:00 [facility] 1994-05-09 Completed [facility] of Influenza B 00:00:00 [facility] 1994-05-09 Completed [facility] of Influenza B 00:00:00 [facility] 1994-05-09 Completed [facility] of Influenza B 00:00:00 [facility] Hep B, Unspecified 1993-04-29 Completed [facility] of Formulation 00:00:00 [facility] Hep B, Adol or Pedi 1993-04-29 Completed Unive rs[facility] of Dosage 00:00:00 [facility] Hep B, Unspecified 1993-04-29 Completed [facility] of Formulation 00:00:00 [facility] Hep B, Adol or Pedi 1993-04-29 Completed [facility] of Dosage 00:00:00 [facility] Hep B, Unspecified 1993-04-29 Completed Univer sity [...] 1993-04-29 Completed [facility] of Dosage 00:00:00 [facility] Hep B, Unspecified 1993-04-29 Completed [facility] Formulation 00:00:00 [facility] Hep B, Adol or Pedi 1993-04-29 Completed [facility] rs[facility] of Dosage 00:00:00 [facility] Hep B, Unspecified 1993-04-29 Completed [facility] of Formulation 00:00:00 [facility] Hep B, Adol or Pedi 1993-04-29 Completed [facility] of Dosage 00:00:00 [facility] Hep B, Unspecified 1993-04-29 Completed [facility] of Formulation 00:00:00 [facility] Hep B, Adol or Pedi 1993-04-29 Completed [facility] rs[facility] of Dosage 00:00:00 [facility] Hep B, Unspecified 1993-04-29 Completed [facility] of Formulation 00:00:00 [facility] Hep B, Adol or Pedi 1993-04-29 Completed [facility]ive rs[facility] of Dosage 00:00:00 [facility] DTP 1992 Completed [facility] 00:00:00 [facility] Heamophilus 1992 Completed [facility] of Influenza B 00:00:00 [facility] Hib-HbOC 1992 Completed [facility] 00:00:00 [facility] DTP 1992 Completed [facility] 00:00:00 [facility] Heamophilus 1992 Completed [facility] of Influenza B 00:00:00 [facility] Hib-HbOC 1992 Completed [facility] 00:00:00 [facility] DTP 1992 Completed [facility] 00:00:00 [facility] Heamophilus 1992 Completed [facility] of Influenza B 00:00:00 [facility] Hib-HbOC 1992 Completed [facility] 00:00:00 [facility] DTP 1992 Completed [facility] 00:00:00 [facility] Heamophilus 1992 Completed [facility] of Influenza B 00:00:00 [facility] Hib-HbOC 1992 Completed [facility] 00:00:00 [facility] DTP 1992 Completed [facility] 00:00:00 [facility] Heamophilus 1992 Completed [facility] of Influenza B 00:00:00 [facility] Hib-HbOC 1992 Completed [facility] of 00:00:00 [facility] DTP 1992 Completed [facility] 00:00:00 [facility] Heamophilus 1992 Completed [facility] of Influenza B 00:00:00 [facility] Hib-HbOC 1992 Completed [facility] of 00:00:00 [facility] DTP 1992 Completed [facility] 00:00:00 [facility] Heamophilus 1992 Completed [facility] of Influenza B 00:00:00 [facility] Hib-HbOC 1992 Completed [facility] of 00:00:00 [facility] DTP 1992 Completed [facility] 00:00:00 [facility] Heamophilus 1992 Completed [facility] of Influenza B 00:00:00 [facility] Hib-HbOC 1992 Completed [facility] 00:00:00 [facility] DTP 1992 Completed [facility] 00:00:00 [facility] Heamophilus 1992 Completed [facility] of Influenza B 00:00:00 [facility] Hib-HbOC 1992 Completed [facility] 00:00:00 [facility] DTP 1992 Completed [facility] 00:00:00 [facility] Heamophilus 1992 Completed [facility] of Influenza B 00:00:00 [facility] Hib-HbOC 1992 Completed [facility] 00:00:00 [facility] DTP 1992 Completed [facility] 00:00:00 [facility] Heamophilus 1992 Completed [facility] of Influenza B 00:00:00 [facility] Hib-HbOC 1992 Completed [facility] of 00:00:00 [facility] DTP 1992 Completed [facility] of 00:00:00 [facility] Heamophilus 1992 Completed University of Influenza B 00:00:00 [facility] Hib-HbOC 1992 Completed [facility] of 00:00:00 [facility] DTP 1992 Completed [facility] of 00:00:00 [facility] Heamophilus 1992 Completed University of Influenza B 00:00:00 [facility] Hib-HbOC 1992 Completed [facility] of 00:00:00 [facility] DTP 1992 Completed [facility] of 00:00:00 [facility] Heamophilus 1992 Completed University of Influenza B 00:00:00 [facility] Hib-HbOC 1992 Completed [facility] of 00:00:00 [facility] DTP 1992 Completed [facility] of 00:00:00 [facility] Heamophilus 1992 Completed [facility] of Influenza B 00:00:00 [facility] Hib-HbOC 1992 Completed [facility] of 00:00:00 [facility] DTP 1992 Completed [facility] of 00:00:00 [facility] Heamophilus 1992 Completed [facility] of Influenza B 00:00:00 [facility] Hib-HbOC 1992 Completed [facility] of 00:00:00 [facility] DTP 1992 Completed [facility] 00:00:00 [facility] Heamophilus 1992 Completed [facility] of Influenza B 00:00:00 [facility] Hib-HbOC 1992 Completed [facility] of 00:00:00 [facility] DTP 1992 Completed [facility] of 00:00:00 [facility] Heamophilus 1992 Completed University of Influenza B 00:00:00 [facility] Hib-HbOC 1992 Completed [facility] of 00:00:00 [facility] DTP 1992 Completed [facility] of 00:00:00 [facility] Heamophilus 1992 Completed [facility] of Influenza B 00:00:00 [facility] Hib-HbOC 1992 Completed [facility] 00:00:00 [facility] DTP 1992 Completed [facility] 00:00:00 [facility] [facility] 1992 Completed [facility] Influenza B 00:00:00 [facility] Hib-HbOC 1992 Completed [facility] 00:00:00 [facility] DTP 1992 Completed [facility] 00:00:00 [facility] Heamophilus 1992 Completed [facility] Influenza B 00:00:00 [facility] Hib-HbOC 1992 Completed [facility] 00:00:00 [facility] DTP 1992 Completed [facility] 00:00:00 [facility] Heamophilus 1992 Completed [facility] Influenza B 00:00:00 [facility] Hib-HbOC 1992 Completed [facility] 00:00:00 [facility] DTP 1992 Completed [facility] 00:00:00 [facility] Heamophilus 1992 Completed [facility] Influenza B 00:00:00 [facility] Hib-HbOC 1992 Completed [facility] 00:00:00 [facility] DTP 1992 Completed [facility] 00:00:00 [facility] Heamophilus 1992 Completed [facility] Influenza B 00:00:00 [facility] Hib-HbOC 1992 Completed [facility] 00:00:00 [facility] DTP 1992 Completed [facility] 00:00:00 [facility] Heamophilus 1992 Completed [facility] Influenza B 00:00:00 [facility] Hib-HbOC 1992 Completed [facility] 00:00:00 [facility] DTP 1992 Completed [facility] 00:00:00 [facility] Heamophilus 1992 Completed [facility] Influenza B 00:00:00 [facility] Hib-HbOC 1992 Completed [facility] 00:00:00 [facility] DTP 1992 Completed [facility] 00:00:00 [facility] Heamophilus 1992 Completed [facility] Influenza B 00:00:00 [facility] Hib-HbOC 1992 Completed [facility] 00:00:00 [facility] DTP 1992 Completed [facility] 00:00:00 [facility] Heamophilus 1992 Completed [facility] Influenza B 00:00:00 [facility] Hib-HbOC 1992 Completed [facility] 00:00:00 [facility] DT 1992 Completed [facility] 00:00:00 [facility] Heamophilus 1992 Completed [facility] Influenza B 00:00:00 [facility] Hib-HbOC 1992 Completed [facility] 00:00:00 [facility] DT 1992 Completed [facility] 00:00:00 [facility] Heamophilus 1992 Completed [facility] Influenza B 00:00:00 [facility] Hib-HbOC 1992 Completed [facility] 00:00:00 [facility] Poliovirus, Live, 1992 Completed [facility] Oral, Trivalent 00:00:00 [facility] 1992 Completed [facility] 00[facility]00[facility]00 [facility] Influenza B 00:00:00 [facility] Hib-HbOC 1992 Completed [facility] 00:00:00 [facility] Poliovirus, Live, 1992 Completed [facility] Oral, Trivalent 00:00:00 [facility] 1992 Completed [facility] 00[facility]00[facility]00 [facility] Influenza B 00:00:00 [facility] Hib-HbOC 1992 Completed [facility] 00:00:00 [facility] Poliovirus, Live, 1992 Completed [facility] Oral, Trivalent 00:00:00 [facility] 1992 Completed [facility] 00:00[facility]00 [facility] Influenza B 00:00:00 [facility] Hib-HbOC 1992 Completed [facility] 00:00:00 [facility] Poliovirus, Live, 1992 Completed [facility] Oral, Trivalent 00:00:00 [facility] 1992 Completed [facility] 00:00:00 [facility] Heamophilus 1992 Completed [facility] Influenza B 00:00:00 [facility] Hib-HbOC 1992 Completed [facility] 00:00:00 [facility] Poliovirus, Live, 1992 Completed [facility] of Oral, Trivalent 00:00:00 [facility] 1992 Completed [facility] 00:00:00 [facility] Heamophilus 1992 Completed [facility] Influenza B 00:00:00 [facility] Hib-HbOC 1992 Completed [facility] 00:00:00 [facility] Poliovirus, Live, 1992 Completed [facility] Oral, Trivalent 00:00:00 [facility] 1992 Completed [facility] 00:00:00 [facility] Heamophilus 1992 Completed [facility] Influenza B 00:00:00 [facility] Hib-HbO 1992 Completed [facility] 00:00:00 [facility] Poliovirus, Live, 1992 Completed [facility] Oral, Trivalent 00:00:00 [facility] 1992 Completed [facility] 00:00:00 [facility] Heamophilus 1992 Completed [facility] Influenza B 00:00:00 [facility] Hib-HbO 1992 Completed [facility] 00:00:00 [facility] Poliovirus, Live, 1992 Completed [facility] Oral, Trivalent 00:00:00 [facility] 1992 Completed [facility] 00:00[facility]00 [facility] Influenza B 00:00:00 [facility] Hib-HbOC 1992 Completed [facility] 00:00:00 [facility] Poliovirus, Live, 1992 Completed [facility] Oral, Trivalent 00:00:00 [facility] 1992 Completed [facility] 00:00:00 [facility] Heamophilus 1992 Completed [facility] Influenza B 00:00:00 [facility] Hib-HbOC 1992 Completed [facility] 00:00:00 [facility] Poliovirus, Live, 1992 Completed [facility] Oral, Trivalent 00:00:00 [facility] 1992 Completed [facility] 00:00:00 [facility] Heamophilus 1992 Completed [facility] Influenza B 00:00:00 [facility] Hib-HbOC 1992 Completed [facility] 00:00:00 [facility] Poliovirus, Live, 1992 Completed [facility] Oral, Trivalent 00:00:00 [facility] 1992 Completed [facility] 00:00:00 [facility] Heamophilus 1992 Completed [facility] Influenza B 00:00:00 [facility] Hib-HbOC 1992 Completed [facility] 00:00:00 [facility] Poliovirus, Live, 1992 Completed [facility] of Oral, Trivalent 00:00:00 [facility] 1992 Completed [facility] 00:00:00 [facility] Heamophilus 1992 Completed [facility] Influenza B 00:00:00 [facility] Hib-HbOC 1992 Completed [facility] 00:00:00 [facility] Poliovirus, Live, 1992 Completed [facility] of Oral, Trivalent 00:00:00 [facility] 1992 Completed [facility] 00:00:00 [facility] Heamophilus 1992 Completed [facility] Influenza B 00:00:00 [facility] Hib-HbOC 1992 Completed [facility] 00:00:00 [facility] Poliovirus, Live, 1992 Completed [facility] of Oral, Trivalent 00:00:00 [facility] 1992 Completed [facility] 00:00:00 [facility] Heamophilus 1992 Completed [facility] Influenza B 00:00:00 [facility] Hib-HbOC 1992 Completed [facility] 00:00:00 [facility] Poliovirus, Live, 1992 Completed [facility] of Oral, Trivalent 00:00:00 [facility] DT 1992 Completed [facility] of 00:00:00 [facility] Heamophilus 1992 Completed [facility] Influenza B 00:00:00 [facility] Hib-HbOC 1992 Completed [facility] 00:00:00 [facility] Poliovirus, Live, 1992 Completed [facility] of Oral, Trivalent 00:00:00 [facility] 1992 Completed [facility] 00:00:00 [facility] Heamophilus 1992 Completed [facility] Influenza B 00:00:00 [facility] Hib-HbOC 1992 Completed [facility] 00:00:00 [facility] Poliovirus, Live, 1992 Completed [facility] of Oral, Trivalent 00:00:00 [facility] 1992 Completed [facility] 00:00:00 [facility] Heamophilus 1992 Completed [facility] Influenza B 00:00:00 [facility] Hib-HbOC 1992 Completed [facility] 00:00:00 [facility] Poliovirus, Live, 1992 Completed [facility] of Oral, Trivalent 00:00:00 [facility] 1992 Completed [facility] 00:00:00 [facility] Influenza B 00:00:00 [facility] Hib-HbOC 1992 Completed [facility] 00:00:00 [facility] Poliovirus, Live, 1992 Completed [facility] of Oral, Trivalent 00:00:00 [facility] 1992 Completed [facility] Influenza B 00:00:00 [facility] Hib-HbO 1992 Completed [facility] 00:00:00 [facility] Poliovirus, Live, 1992 Completed [facility] of Oral, Trivalent 00:00:00 [facility] 1992 Completed [facility] 00:00:00 [facility] Heamophilus 1992 Completed [facility] Influenza B 00:00:00 [facility] Hib-HbOC 1992 Completed [facility] 00:00:00 [facility] Poliovirus, Live, 1992 Completed [facility] of Oral, Trivalent 00:00:00 [facility] 1992 Completed [facility] 00:00:00 [facility] Heamophilus 1992 Completed [facility] Influenza B 00:00:00 [facility] Hib-HbOC 1992 Completed [facility] 00:00:00 [facility] Poliovirus, Live, 1992 Completed [facility] of Oral, Trivalent 00:00:00 [facility] 1992 Completed [facility] 00:00:00 [facility] Heamophilus 1992 Completed [facility] Influenza B 00:00:00 [facility] Hib-HbOC 1992 Completed [facility] 00:00:00 [facility] Poliovirus, Live, 1992 Completed [facility] of Oral, Trivalent 00:00:00 [facility] 1992 Completed [facility] 00:00:00 [facility] Heamophilus 1992 Completed [facility] of Influenza B 00:00:00 [facility] Hib-HbOC 1992 Completed [facility] 00:00:00 [facility] Poliovirus, Live, 1992 Completed [facility] of Oral, Trivalent 00:00:00 [facility] 1992 Completed [facility] 00:00:00 [facility] Heamophilus 1992 Completed [facility] Influenza B 00:00:00 [facility] Hib-HbO 1992 Completed [facility] 00:00:00 [facility] Poliovirus, Live, 1992 Completed [facility] of Oral, Trivalent 00:00:00 [facility] 1992 Completed [facility] 00:00:00 [facility] Influenza B 00:00:00 [facility] Hib-HbOC 1992 Completed [facility] 00:00:00 [facility] Poliovirus, Live, 1992 Completed [facility] of Oral, Trivalent 00:00:00 [facility] 1992 Completed [facility] 00:00:00 [facility] Heamophilus 1992 Completed [facility] Influenza B 00:00:00 [facility] Hib-HbOC 1992 Completed [facility] 00:00:00 [facility] Poliovirus, Live, 1992 Completed [facility] of Oral, Trivalent 00:00:00 [facility] 1992 Completed [facility] 00:00:00 [facility] Heamophilus 1992 Completed [facility] Influenza B 00:00:00 [facility] Hib-HbOC 1992 Completed [facility] 00:00:00 [facility] Poliovirus, Live, 1992 Completed [facility] of Oral, Trivalent 00:00:00 [facility] 1992 Completed [facility] 00:00:00 [facility] Heamophilus 1992 Completed [facility] of Influenza B 00:00:00 [facility] Hib-HbOC 1992 Completed [facility] 00:00:00 [facility] Poliovirus, Live, 1992 Completed [facility] of Oral, Trivalent 00:00:00 [facility] 1992 Completed [facility] 00:00:00 [facility] Heamophilus 1992 Completed [facility] Influenza B 00:00:00 [facility] Hib-HbOC 1992 Completed [facility] 00:00:00 [facility] Poliovirus, Live, 1992 Completed [facility] of Oral, Trivalent 00:00:00 [facility] 1992 Completed [facility] 00:00:00 [facility] Heamophilus 1992 Completed [facility] of Influenza B 00:00:00 [facility] Hib-HbOC 1992 Completed [facility] 00:00:00 [facility] Poliovirus, Live, 1992 Completed [facility] of Oral, Trivalent 00:00:00 [facility] 1992 Completed [facility] 00:00:00 [facility] Heamophilus 1992 Completed [facility] of Influenza B 00:00:00 [facility] Hib-HbOC 1992 Completed [facility] 00:00:00 [facility] Poliovirus, Live, 1992 Completed [facility] of Oral, Trivalent 00:00:00 [facility] DT 1992 Completed [facility] 00:00:00 [facility] Heamophilus 1992 Completed [facility] Influenza B 00:00:00 [facility] Hib-HbOC 1992 Completed [facility] 00:00:00 [facility] Poliovirus, Live, 1992 Completed [facility] of Oral, Trivalent 00:00:00 [facility] 1992 Completed [facility] 00:00:00 [facility] Heamophilus 1992 Completed [facility] of Influenza B 00:00:00 [facility] Hib-HbOC 1992 Completed [facility] 00:00:00 [facility] Poliovirus, Live, 1992 Completed [facility] of Oral, Trivalent 00:00:00 [facility] 1992 Completed [facility] 00:00:00 [facility] Heamophilus 1992 Completed [facility] of Influenza B 00:00:00 [facility] Hib-HbOC 1992 Completed [facility] 00:00:00 [facility] Poliovirus, Live, 1992 Completed [facility] of Oral, Trivalent 00:00:00 [facility] 1992 Completed [facility] 00:00[facility]00 [facility] Influenza B 00:00:00 [facility] Hib-HbOC 1992 Completed [facility] 00:00:00 [facility] Poliovirus, Live, 1992 Completed [facility] of Oral, Trivalent 00:00:00 [facility] 1992 Completed [facility] 00:00:00 [facility] Influenza B 00:00:00 [facility] Hib-HbO 1992 Completed [facility] 00:00:00 [facility] Poliovirus, Live, 1992 Completed [facility] of Oral, Trivalent 00:00:00 [facility] 1992 Completed [facility] 00:00:00 [facility] Heamophilus 1992 Completed [facility] of Influenza B 00:00:00 [facility] Hib-HbOC 1992 Completed [facility] 00:00:00 [facility] Poliovirus, Live, 1992 Completed [facility] of Oral, Trivalent 00:00:00 [facility] 1992 Completed [facility] 00:00:00 [facility] Heamophilus 1992 Completed [facility] of Influenza B 00:00:00 [facility] Hib-HbOC 1992 Completed [facility] 00:00:00 [facility] Poliovirus, Live, 1992 Completed [facility] of Oral, Trivalent 00:00:00 [facility] 1992 Completed [facility] 00:00:00 [facility] Heamophilus 1992 Completed [facility] of Influenza B 00:00:00 [facility] Hib-HbOC 1992 Completed [facility] 00:00:00 [facility] Poliovirus, Live, 1992 Completed [facility] of Oral, Trivalent 00:00:00 [facility] 1992 Completed [facility] 00:00:00 [facility] Heamophilus 1992 Completed [facility] of Influenza B 00:00:00 [facility] Hib-HbOC 1992 Completed [facility] 00:00:00 [facility] Poliovirus, Live, 1992 Completed [facility] of Oral, Trivalent 00:00:00 [facility] 1992 Completed [facility] 00:00:00 [facility] Influenza B 00:00:00 [facility] Hib-HbO 1992 Completed [facility] 00:00:00 [facility] Poliovirus, Live, 1992 Completed [facility] of Oral, Trivalent 00:00:00 [facility] 1992 Completed [facility] 00:00:00 [facility] Influenza B 00:00:00 [facility] Hib-HbOC 1992 Completed [facility] 00:00:00 [facility] Poliovirus, Live, 1992 Completed [facility] of Oral, Trivalent 00:00:00 [facility] 1992 Completed [facility] 00:00:00 [facility] Heamophilus 1992 Completed [facility] of Influenza B 00:00:00 [facility] Hib-HbOC 1992 Completed [facility] 00:00:00 [facility] Poliovirus, Live, 1992 Completed [facility] of Oral, Trivalent 00:00:00 [facility] 1992 Completed [facility] Influenza B 00:00:00 [facility] Hib-HbOC 1992 Completed [facility] 00:00:00 [facility] Poliovirus, Live, 1992 Completed [facility] of Oral, Trivalent 00:00:00 [facility] 1992 Completed [facility] 00:00:00 [facility] Influenza B 00:00:00 [facility] Hib-HbOC 1992 Completed [facility] 00:00:00 [facility] Poliovirus, Live, 1992 Completed [facility] of Oral, Trivalent 00:00:00 [facility] 1992 Completed [facility] Influenza B 00:00:00 [facility] Hib-HbO 1992 Completed [facility] 00:00:00 [facility] Poliovirus, Live, 1992 Completed [facility] of Oral, Trivalent 00:00:00 [facility] 1992 Completed [facility] Influenza B 00:00:00 [facility] Hib-HbO 1992 Completed [facility] 00:00:00 [facility] Poliovirus, Live, 1992 Completed [facility] of Oral, Trivalent 00:00:00 [facility] 1992 Completed [facility] 00:00:00 [facility] Influenza B 00:00:00 [facility] Hib-HbO 1992 Completed [facility] 00:00:00 [facility] Poliovirus, Live, 1992 Completed [facility] of Oral, Trivalent 00:00:00 [facility] 1992 Completed [facility] 00:00:00 [facility] Influenza B 00:00:00 [facility] Hib-HbO 1992 Completed [facility] 00:00:00 [facility] Poliovirus, Live, 1992 Completed [facility] Oral, Trivalent 00:00:00 [facility] 1992 Completed [facility] 00:00:00 [facility] Heamophilus 1992 Completed [facility] Influenza B 00:00:00 [facility] Hib-HbOC 1992 Completed [facility] of 00:00:00 [facility] Poliovirus, Live, 1992 Completed [facility]y of Oral, Trivalent 00:00:00 [facility] 1992 Completed [facility] of 00:00:00 [facility] Heamophilus 1992 Completed University of Influenza B 00:00:00 [facility] Hib-HbOC 1992 Completed [facility] of 00[facility]00:00 [facility] Poliovirus, Live, 1992 Completed [facility] ity [facility] Oral, Trivalent 00:00:00 [facility] 1992 Completed [facility] 00[facility]00 [facility] Influenza B 00:00:00 [facility] Hib-HbOC 1992 Completed [facility] 00:00:00 [facility] Poliovirus, Live, 1992 Completed Univers [facility]y of Oral, Trivalent 00:00:00 [facility] 1992 Completed [facility] 00[facility]00[facility]00 [facility] Influenza B 00:00:00 [facility] Hib-HbOC 1992 Completed [facility] of 00:00:00 [facility] Poliovirus, Live, 1992 Completed Univers ity of Oral, Trivalent 00:00:00 [facility] 1992 Completed [facility] 00:00:00 [facility] Heamophilus 1992 Completed University of Influenza B 00:00:00 [facility] Hib-HbOC 1992 Completed [facility] of 00:00:00 [facility] Poliovirus, Live, 1992 Completed Univers ity of Oral, Trivalent 00:00:00 [facility] 1992 Completed [facility] 00:00:00 [facility] Heamophilus 1992 Completed [facility] of Influenza B 00:00:00 [facility] Hib-HbOC 1992 Completed [facility] 00:00:00 [facility] Poliovirus, Live, 1992 Completed Univers ity of Oral, Trivalent 00:00:00 [facility] DTP 1992 Completed University of 00:00:00 [facility] Heamophilus 1992 Completed University of Influenza B 00:00:00 [facility] Hib-HbOC 1992 Completed [facility] of 00:00:00 [facility] Poliovirus, Live, 1992 Completed Univers ity of Oral, Trivalent 00:00:00 [facility] DTP 1992 Completed [facility] 00:00:00 [facility] Heamophilus 1992 Completed University of Influenza B 00:00:00 [facility] Hib-HbOC 1992 Completed [facility] of 00:00:00 [facility] Poliovirus, Live, 1992 Completed Univers ity of Oral, Trivalent 00:00:00 [facility] PFIZER COVID-19 MRNA Unknown Completed Meth odist [...] Unknown Completed Unive rsity of PFIZER VACCINE [facility] SARS-COV-2 COVID-19 Unknown Completed Unive rsity of PFIZER VACCINE [facility] DTP Unknown Completed [facility] DTP Unknown Completed [facility] DTP Unknown Completed [facility] DTP Unknown Completed [facility] DTaP, Unspecified Unknown Completed Univers ity of Formulation [facility] Influenza Virus Unknown Completed Universit y of Vaccine Quad .5 mL [facility] 6+ MO Branch (FLUZONE/FLULAVAL/FL UARIX) Hep B, Unspecified Unknown Completed Univer sity of Formulation [facility] HEPATITIS A Unknown Completed [facility] HEPATITIS A Unknown Completed [facility] Hep B, Unspecified Unknown Completed Univer sity of Formulation [facility] Hep B, Adol or Pedi Unknown Completed Unive rsity of Dosage [facility] Hep B, Adol or Pedi Unknown Completed Unive rsity of Dosage [facility] Hep B, Adol or Pedi Unknown Completed Unive rsity of Dosage [facility] Heamophilus Unknown Completed [facility] Influenza B [facility] Heamophilus Unknown Completed [facility] Influenza B [facility] Heamophilus Unknown Completed [facility] Influenza B [facility] Heamophilus Unknown Completed [facility] Hib-HbOC Unknown Completed [facility] Hib-HbOC Unknown Completed [facility] Hib[facility]HbOC Unknown Completed [facility] Hib-HbOC Unknown Completed [facility] HPV Unknown Completed [facility] HPV Unknown Completed [facility] HPV Unknown Completed [facility] Meningococcal Unknown Completed [facility] Polysaccharide [facility] (groups A, C, Y and Branc h W-135) conjugate vaccine (MCV4P) MMR Unknown Completed [facility] MMR Unknown Completed [facility] Poliovirus, Live, Unknown Completed Univers ity of Oral, Trivalent [facility] Poliovirus, Live, Unknown Completed Univers ity of Oral, Trivalent [facility] Poliovirus, Live, Unknown Completed Univers ity of Oral, Trivalent [facility] Poliovirus, Live, Unknown Completed Univers ity of Oral, Trivalent [facility] Tetanus/Diptheria Unknown Completed Univers ity [facility] TDAP Unknown Completed [facility] Varicella Unknown Completed University (varivax[place] [place] [facility] pox) Branch Varicella Unknown Completed University (varivax)([facility] [place] [facility] pox) Branch SARS-COV-2 COVID-19 Unknown Completed Unive rsity of PFIZER VACCINE [facility] Branch SARS-COV-2 COVID-19 Unknown Completed Unive rsity of PFIZER VACCINE [facility] DTP Unknown Completed [facility] DTP Unknown Completed [facility] DTP Unknown Completed [facility] DTP Unknown Completed [facility] DTaP, Unspecified Unknown Completed Univers ity of Formulation [facility] Influenza Virus Unknown Completed Universit y of Vaccine Quad .5 mL [facility] IM 6+ MO Branch (FLUZONE/FLULAVAL/FL UARIX) Hep B, Unspecified Unknown Completed Univer sity of Formulation [facility] HEPATITIS A Unknown Completed [facility] HEPATITIS A Unknown Completed [facility] Hep B, Unspecified Unknown Completed Univer sity of Formulation [facility] Hep B, Adol or Pedi Unknown Completed Unive rsity of Dosage [facility] Hep B, Adol or Pedi Unknown Completed Unive rsity of Dosage [facility] Hep B, Adol or Pedi Unknown Completed Unive rsity of Dosage [facility] Heamophilus Unknown Completed [facility] Influenza [facility] Heamophilus Unknown Completed [facility] Influenza [facility] Heamophilus Unknown Completed [facility] Influenza B [facility] Heamophilus Unknown Completed [facility] Hib-HbOC Unknown Completed [facility] Hib-HbOC Unknown Completed [facility] Hib-HbOC Unknown Completed [facility] Hib-HbOC Unknown Completed [facility] HPV Unknown Completed [facility] HPV Unknown Completed [facility] HPV Unknown Completed [facility] Meningococcal Unknown Completed [facility] (groups A, C, Y and Branc h W-135) conjugate vaccine (MCV4P) MMR Unknown Completed [facility] MMR Unknown Completed [facility] Poliovirus, Live, Unknown Completed Univers ity of Oral, Trivalent [facility] Poliovirus, Live, Unknown Completed Univers ity of Oral, Trivalent [facility] Poliovirus, Live, Unknown Completed Univers ity of Oral, Trivalent [facility] Branch Poliovirus, Live, Unknown Completed Univers ity of Oral, Trivalent [facility] Tetanus/Diptheria Unknown Completed Univers ity [facility] TDAP Unknown Completed [facility] Varicella Unknown Completed University (varivax)([facility] [place] [facility] pox) Branch Varicella Unknown Completed University (varivax)([facility] [place] [facility] pox) Branch SARS-COV-2 COVID-19 Unknown Completed Unive rsity of PFIZER VACCINE [facility] SARS-COV-2 COVID-19 Unknown Completed Unive rsity of PFIZER VACCINE [facility] DTP Unknown Completed [facility] DTP Unknown Completed [facility] DTP Unknown Completed [facility] DTP Unknown Completed [facility] DTaP, Unspecified Unknown Completed Univers ity of Formulation [facility] Influenza Virus Unknown Completed Universit y of Vaccine Quad .5 mL [facility] 6+ MO Branch (FLUZONE/FLULAVAL/FL UARIX) Hep B, Unspecified Unknown Completed Univer sity of Formulation [facility] HEPATITIS A Unknown Completed [facility] HEPATITIS A Unknown Completed [facility] Hep B, Unspecified Unknown Completed Univer sity of Formulation [facility] Hep B, Adol or Pedi Unknown Completed Unive rsity of Dosage [facility] Hep B, Adol or Pedi Unknown Completed Unive rsity of Dosage [facility] Hep B, Adol or Pedi Unknown Completed Unive rsity of Dosage [facility] Heamophilus Unknown Completed [facility] Influenza [facility] Heamophilus Unknown Completed [facility] Influenza [facility] Heamophilus Unknown Completed [facility] Influenza [facility] Heamophilus Unknown Completed [facility] Influenza [facility] Hib-HbOC Unknown Completed [facility] Hib-HbOC Unknown Completed [facility] Hib[facility]HbOC Unknown Completed [facility] Hib-HbOC Unknown Completed [facility] HPV Unknown Completed [facility] HPV Unknown Completed [facility] HPV Unknown Completed [facility] Meningococcal Unknown Completed [facility] (groups A, C, Y and Branc h W-135) conjugate vaccine (MCV4P) MMR Unknown Completed [facility] MMR Unknown Completed [facility] Poliovirus, Live, Unknown Completed Univers ity of Oral, Trivalent [facility] Poliovirus, Live, Unknown Completed [facility] Oral, Trivalent [place] [facility] Poliovirus, Live, Unknown Completed Univers ity of Oral, Trivalent [facility] Branch Poliovirus, Live, Unknown Completed Univers ity of Oral, Trivalent [facility] Tetanus/Diptheria Unknown Completed Univers ity [facility] TDAP Unknown Completed [facility] Varicella Unknown Completed [facility] (varivax)([facility] [place] [facility] pox) Branch Varicella Unknown Completed [facility] (varivax)(chicken [place] [facility] pox) [place] SARS-COV-2 COVID-19 Unknown Completed Unive rsity of PFIZER VACCINE [facility] SARS-COV-2 COVID-19 Unknown Completed Unive rsity of PFIZER VACCINE [facility] DTP Unknown Completed [facility] DTP Unknown Completed [facility] DTP Unknown Completed [facility] DTP Unknown Completed [facility] DTaP, Unspecified Unknown Completed Univers ity of Formulation [facility] Influenza Virus Unknown Completed Universit y of Vaccine Quad .5 mL [facility] 6+ MO Branch (FLUZONE/FLULAVAL/FL UARIX) Hep B, Unspecified Unknown Completed Univer sity of Formulation [facility] HEPATITIS A Unknown Completed [facility] HEPATITIS A Unknown Completed [facility] Hep B, Unspecified Unknown Completed Univer sity of Formulation [facility] Hep B, Adol or Pedi Unknown Completed Unive rsity of Dosage [facility] Hep B, Adol or Pedi Unknown Completed Unive rsity of Dosage [facility] Hep B, Adol or Pedi Unknown Completed Unive rsity of Dosage [facility] Heamophilus Unknown Completed [facility] Influenza [facility] Heamophilus Unknown Completed [facility] Influenza [facility] Heamophilus Unknown Completed [facility] Influenza [facility] Heamophilus Unknown Completed [facility] Hib-HbOC Unknown Completed [facility] Hib-HbOC Unknown Completed [facility] Hib-HbOC Unknown Completed [facility] Hib-HbOC Unknown Completed [facility] HPV Unknown Completed [facility] HPV Unknown Completed [facility] HPV Unknown Completed [facility] Meningococcal Unknown Completed [facility] (groups A, C, Y and Branc h W-135) conjugate vaccine (MCV4P) MMR Unknown Completed [facility] MMR Unknown Completed [facility] [place] [facility] Poliovirus, Live, Unknown Completed Univers ity of Oral, Trivalent [facility] Branch Poliovirus, Live, Unknown Completed Univers ity of Oral, Trivalent [facility] Poliovirus, Live, Unknown Completed Univers ity of Oral, Trivalent [facility] Poliovirus, Live, Unknown Completed Univers ity of Oral, Trivalent [facility] Tetanus/Diptheria Unknown Completed Univers ity [facility] TDAP Unknown Completed [facility] Varicella Unknown Completed University (varivax)([facility] [place] [facility] pox) Branch Varicella Unknown Completed [facility] (varivax)(chicken [place] [facility] pox) Branch SARS-COV-2 COVID-19 Unknown Completed Unive rsity of PFIZER VACCINE [facility] Branch SARS-COV-2 COVID-19 Unknown Completed Unive rsity of PFIZER VACCINE [facility] DTP Unknown Completed [facility] DTP Unknown Completed [facility] DTP Unknown Completed [facility] DTP Unknown Completed [facility] DTaP, Unspecified Unknown Completed Univers ity of Formulation [facility] Influenza Virus Unknown Completed Universit y of Vaccine Quad .5 mL [facility] 6+ MO Branch (FLUZONE/FLULAVAL/FL UARIX) Hep B, Unspecified Unknown Completed Univer sity of Formulation [facility] HEPATITIS A Unknown Completed [facility] HEPATITIS A Unknown Completed [facility] Hep B, Unspecified Unknown Completed Univer sity of [facility] Hep B, Adol or Pedi Unknown Completed Unive rsity of Dosage [facility] Hep B, Adol or Pedi Unknown Completed Unive rsity of Dosage [facility] Hep B, Adol or Pedi Unknown Completed Unive rsity of Dosage [facility] Heamophilus Unknown Completed [facility] Influenza B [facility] Heamophilus Unknown Completed [facility] Influenza B [facility] Heamophilus Unknown Completed [facility] Influenza B [facility] Heamophilus Unknown Completed [facility] Influenza B [facility] Hib-HbOC Unknown Completed [facility] Hib-HbOC Unknown Completed [facility] Hib-HbOC Unknown Completed [facility] Hib-HbOC Unknown Completed [facility] HPV Unknown Completed [facility] HPV Unknown Completed [facility] HPV Unknown Completed [facility] Meningococcal Unknown Completed [facility] (groups A, C, Y and Branc h W-135) conjugate vaccine (MCV4P) MMR Unknown Completed [facility] MMR Unknown Completed [facility] Poliovirus, Live, Unknown Completed Univers ity of Oral, Trivalent [facility] Poliovirus, Live, Unknown Completed Univers ity of Oral, Trivalent [facility] Branch Poliovirus, Live, Unknown Completed Univers ity of Oral, Trivalent [facility] Poliovirus, Live, Unknown Completed Univers ity of Oral, Trivalent [facility] Tetanus/Diptheria Unknown Completed Univers ity [facility] TDAP Unknown Completed [facility] Varicella Unknown Completed [facility] (varivax)(chicken [place] [facility] pox) Branch Varicella Unknown Completed [facility] (varivax)(chicken [place] [facility] pox) Branch SARS-COV-2 COVID-19 Unknown Completed Unive rsity of PFIZER VACCINE [facility] SARS-COV-2 COVID-19 Unknown Completed Unive rsity of PFIZER VACCINE [facility] DTP Unknown Completed [facility] DTP Unknown Completed [facility] DTP Unknown Completed [facility] DTP Unknown Completed [facility] DTaP, Unspecified Unknown Completed Univers ity of Formulation [facility] Influenza Virus Unknown Completed Universit y of Vaccine Quad .5 mL [facility] 6+ MO Branch (FLUZONE/FLULAVAL/FL UARIX) Hep B, Unspecified Unknown Completed Univer sity of Formulation [facility] HEPATITIS A Unknown Completed [facility] HEPATITIS A Unknown Completed [facility] Hep B, Unspecified Unknown Completed Univer sity of Formulation [facility] Hep B, Adol or Pedi Unknown Completed Unive rsity of Dosage [facility] Hep B, Adol or Pedi Unknown Completed Unive rsity of Dosage [facility] Hep B, Adol or Pedi Unknown Completed Unive rsity of Dosage [facility] Heamophilus Unknown Completed [facility] Influenza B [facility] Heamophilus Unknown Completed [facility] Influenza B [facility] Heamophilus Unknown Completed [facility] Influenza B [facility] Heamophilus Unknown Completed [facility] Influenza B [facility] Hib-HbOC Unknown Completed [facility] Hib-HbOC Unknown Completed [facility] Hib[facility]HbOC Unknown Completed [facility] Hib-HbOC Unknown Completed [facility] HPV Unknown Completed [facility] HPV Unknown Completed [facility] HPV Unknown Completed [facility] Meningococcal Unknown Completed [facility] Polysaccharide [facility] (groups A, C, Y and Branc h W-135) conjugate vaccine (MCV4P) MMR Unknown Completed [facility] MMR Unknown Completed [facility] Poliovirus, Live, Unknown Completed Univers ity of Oral, Trivalent [facility] Poliovirus, Live, Unknown Completed Univers ity of Oral, Trivalent [facility] Poliovirus, Live, Unknown Completed Univers ity of Oral, Trivalent [facility] Poliovirus, Live, Unknown Completed Univers ity of Oral, Trivalent [facility] Tetanus/Diptheria Unknown Completed Univers ity [facility] TDAP Unknown Completed [facility] Varicella Unknown Completed [facility] (varivax)(chicken [place] [facility] pox) Branch Varicella Unknown Completed [facility] (varivax)(chicken [place] [facility] pox) Branch SARS-COV-2 COVID-19 Unknown Completed Unive rsity of PFIZER VACCINE [facility] SARS-COV-2 COVID-19 Unknown Completed Unive rsity of PFIZER VACCINE [facility] DTP Unknown Completed [facility] DTP Unknown Completed [facility] DTP Unknown Completed [facility] DTP Unknown Completed [facility] DTaP, Unspecified Unknown Completed Univers ity of Formulation [facility] Influenza Virus Unknown Completed Universit y of Vaccine Quad .5 mL [facility] 6+ MO Branch (FLUZONE/FLULAVAL/FL UARIX) Hep B, Unspecified Unknown Completed Univer sity of Formulation [facility] HEPATITIS A Unknown Completed [facility] HEPATITIS A Unknown Completed [facility] Hep B, Unspecified Unknown Completed Univer sity of Formulation [facility] Hep B, Adol or Pedi Unknown Completed Unive rsity of Dosage [facility] Hep B, Adol or Pedi Unknown Completed Unive rsity of Dosage [facility] Hep B, Adol or Pedi Unknown Completed Unive rsity of Dosage [facility] Heamophilus Unknown Completed [facility] Influenza B [facility] Heamophilus Unknown Completed [facility] Influenza B [facility] Heamophilus Unknown Completed [facility] Influenza B [facility] Heamophilus Unknown Completed [facility] Influenza B [facility] Hib-HbOC Unknown Completed [facility] Hib-HbOC Unknown Completed [facility] Hib-HbOC Unknown Completed [facility] Hib-HbOC Unknown Completed [facility] HPV Unknown Completed [facility] HPV Unknown Completed [facility] HPV Unknown Completed [facility] Meningococcal Unknown Completed [facility] Polysaccharide [facility] (groups A, C, Y and Branc h W-135) conjugate vaccine (MCV4P) MMR Unknown Completed [facility] MMR Unknown Completed [facility] Poliovirus, Live, Unknown Completed Univers ity of Oral, Trivalent [facility] Poliovirus, Live, Unknown Completed Univers ity of Oral, Trivalent [facility] Poliovirus, Live, Unknown Completed Univers ity of Oral, Trivalent [facility] Poliovirus, Live, Unknown Completed Univers [facility]y of Oral, Trivalent [facility] Tetanus/Diptheria Unknown Completed Univers ity [facility] TDAP Unknown Completed [facility] Varicella Unknown Completed [facility] (varivax)([place] [place] [facility] pox) Branch Varicella Unknown Completed [facility] (varivax)([place] [place] [facility] pox) Branch SARS-COV-2 COVID-19 Unknown Completed Unive rsity of PFIZER VACCINE [facility] SARS-COV-2 COVID-19 Unknown Completed Unive rsity of PFIZER VACCINE [facility] DTP Unknown Completed [facility] DTP Unknown Completed [facility] DTP Unknown Completed [facility] DTP Unknown Completed [facility] DTaP, Unspecified Unknown Completed Univers ity of Formulation [facility] Influenza Virus Unknown Completed Universit y of Vaccine Quad .5 mL [facility] 6+ MO Branch (FLUZONE/FLULAVAL/FL UARIX) Hep B, Unspecified Unknown Completed Univer sity of Formulation [facility] HEPATITIS A Unknown Completed [facility] HEPATITIS A Unknown Completed [facility] Hep B, Unspecified Unknown Completed Univer sity of Formulation [facility] Hep B, Adol or Pedi Unknown Completed Unive rsity of Dosage [facility] Hep B, Adol or Pedi Unknown Completed Unive rsity of Dosage [facility] Hep B, Adol or Pedi Unknown Completed Unive rsity of Dosage [facility] Heamophilus Unknown Completed [facility] Influenza [facility] Heamophilus Unknown Completed [facility] Influenza [facility] Heamophilus Unknown Completed [facility] Influenza [facility] Heamophilus Unknown Completed [facility] Influenza [facility] Hib-HbOC Unknown Completed [facility] Hib-HbOC Unknown Completed [facility] Hib-HbOC Unknown Completed [facility] Hib-HbOC Unknown Completed [facility] HPV Unknown Completed [facility] HPV Unknown Completed [facility] HPV Unknown Completed [facility] Meningococcal Unknown Completed [facility] (groups A, C, Y and Branc h W-135) conjugate vaccine (MCV4P) MMR Unknown Completed [facility] MMR Unknown Completed [facility] Poliovirus, Live, Unknown Completed Univers ity of Oral, Trivalent [facility] Poliovirus, Live, Unknown Completed Univers ity of Oral, Trivalent [facility] Poliovirus, Live, Unknown Completed Univers [facility]y of Oral, Trivalent [facility] Poliovirus, Live, Unknown Completed [facility] of Oral, Trivalent [facility] Tetanus/Diptheria Unknown Completed Univers ity [facility] TDAP Unknown Completed [facility] Varicella Unknown Completed [facility] (varivax)([place] [place] [facility] pox) Branch Varicella Unknown Completed [facility] (varivax)([place] [place] [facility] pox) Branch SARS-COV-2 COVID-19 Unknown Completed Unive rsity of PFIZER VACCINE [facility] SARS-COV-2 COVID-19 Unknown Completed Unive rsity of PFIZER VACCINE [facility] DTP Unknown Completed [facility] DTP Unknown Completed [facility] DTP Unknown Completed [facility] DTP Unknown Completed [facility] DTaP, Unspecified Unknown Completed [facility] of Formulation [facility] Influenza Virus Unknown Completed Universit y of Vaccine Quad .5 mL [facility] 6+ MO Branch (FLUZONE/FLULAVAL/FL UARIX) Hep B, Unspecified Unknown Completed Univer sity of Formulation [facility] HEPATITIS A Unknown Completed [facility] HEPATITIS A Unknown Completed [facility] Hep B, Unspecified Unknown Completed Univer sity of Formulation [facility] Hep B, Adol or Pedi Unknown Completed Unive rsity of Dosage [facility] Hep B, Adol or Pedi Unknown Completed Unive rsity of Dosage [facility] Hep B, Adol or Pedi Unknown Completed Unive rsity of Dosage [facility] Heamophilus Unknown Completed [facility] Influenza [facility] Heamophilus Unknown Completed [facility] Influenza [facility] Heamophilus Unknown Completed [facility] Influenza [facility] Heamophilus Unknown Completed [facility] Influenza [facility] Hib-HbOC Unknown Completed [facility] Hib-HbOC Unknown Completed [facility] Hib-HbOC Unknown Completed [facility] Hib-HbOC Unknown Completed [facility] HPV Unknown Completed [facility] HPV Unknown Completed [facility] HPV Unknown Completed [facility] Meningococcal Unknown Completed [facility] (groups A, C, Y and Branc h W-135) conjugate vaccine (MCV4P) MMR Unknown Completed [facility] MMR Unknown Completed [facility] Poliovirus, Live, Unknown Completed Univers ity of Oral, Trivalent [facility] Poliovirus, Live, Unknown Completed Univers ity of Oral, Trivalent [facility] Poliovirus, Live, Unknown Completed Univers ity of Oral, Trivalent [facility] Poliovirus, Live, Unknown Completed Univers ity of Oral, Trivalent [facility] Tetanus/Diptheria Unknown Completed Univers ity [facility] TDAP Unknown Completed [facility] Varicella Unknown Completed [facility] (varivax)([place] [place] [facility] pox) Branch Varicella Unknown Completed University (varivax)([place] [place] [facility] pox) Branch SARS-COV-2 COVID-19 Unknown Completed Unive rsity of PFIZER VACCINE [facility] SARS-COV-2 COVID-19 Unknown Completed Unive rsity of PFIZER VACCINE [facility] DTP Unknown Completed [facility] DTP Unknown Completed [facility] DTP Unknown Completed [facility] DTP Unknown Completed [facility] DTaP, Unspecified Unknown Completed [facility] of Formulation [facility] Influenza Virus Unknown Completed [facility]it y of Vaccine Quad .5 mL [facility] 6+ MO Branch (FLUZONE/FLULAVAL/FL UARIX) Hep B, Unspecified Unknown Completed Univer sity of Formulation [facility] HEPATITIS A Unknown Completed [facility] HEPATITIS A Unknown Completed [facility] Hep B, Unspecified Unknown Completed Univer sity of Formulation [facility] Hep B, Adol or Pedi Unknown Completed Unive rsity of Dosage [facility] Hep B, Adol or Pedi Unknown Completed Unive rsity of Dosage [facility] Hep B, Adol or Pedi Unknown Completed Unive rsity of Dosage [facility] Heamophilus Unknown Completed [facility] Influenza [facility] Heamophilus Unknown Completed [facility] Influenza [facility] Heamophilus Unknown Completed [facility] Influenza B [facility] Heamophilus Unknown Completed [facility] Influenza [facility] Hib-HbOC Unknown Completed [facility] Hib-HbOC Unknown Completed [facility] Hib-HbOC Unknown Completed [facility] Hib-HbOC Unknown Completed [facility] HPV Unknown Completed [facility] HPV Unknown Completed [facility] HPV Unknown Completed [facility] Meningococcal Unknown Completed [facility] Polysaccharide [facility] (groups A, C, Y and Branc h W-135) conjugate vaccine (MCV4P) MMR Unknown Completed [facility] MMR Unknown Completed [facility] Poliovirus, Live, Unknown Completed Univers ity of Oral, Trivalent [facility] Poliovirus, Live, Unknown Completed Univers ity of Oral, Trivalent [facility] Poliovirus, Live, Unknown Completed Univers ity of Oral, Trivalent [facility] Poliovirus, Live, Unknown Completed Univers ity of Oral, Trivalent [facility] Tetanus/Diptheria Unknown Completed Univers ity [facility] TDAP Unknown Completed [facility] Varicella Unknown Completed University (varivax)([place] [place] [facility] pox) Branch Varicella Unknown Completed [facility] (varivax)([place] [place] [facility] pox) Branch SARS-COV-2 COVID-19 Unknown Completed Unive rsity of PFIZER VACCINE [facility] SARS-COV-2 COVID-19 Unknown Completed Unive rsity of PFIZER VACCINE [facility] DTP Unknown Completed [facility] DTP Unknown Completed [facility] DTP Unknown Completed [facility] DTP Unknown Completed [facility] DTaP, Unspecified Unknown Completed [facility] of Formulation [facility] Influenza Virus Unknown Completed Universit y of Vaccine Quad .5 mL [facility] 6+ MO Branch (FLUZONE/FLULAVAL/FL UARIX) Hep B, Unspecified Unknown Completed Univer sity of Formulation [facility] HEPATITIS A Unknown Completed [facility] HEPATITIS A Unknown Completed [facility] Hep B, Unspecified Unknown Completed Univer sity of Formulation [facility] Hep B, Adol or Pedi Unknown Completed Unive rsity of Dosage [facility] Hep B, Adol or Pedi Unknown Completed Unive rsity of Dosage [facility] Hep B, Adol or Pedi Unknown Completed Unive rsity of Dosage [facility] Heamophilus Unknown Completed [facility] Influenza B [facility] Heamophilus Unknown Completed [facility] Influenza B [facility] Heamophilus Unknown Completed [facility] Influenza B [facility] Heamophilus Unknown Completed [facility] Influenza B [facility] Hib-HbOC Unknown Completed [facility] Hib-HbOC Unknown Completed [facility] Hib-HbOC Unknown Completed [facility] Hib-HbOC Unknown Completed [facility] HPV Unknown Completed [facility] HPV Unknown Completed [facility] HPV Unknown Completed [facility] Meningococcal Unknown Completed [facility] (groups A, C, Y and Branc h W-135) conjugate vaccine (MCV4P) MMR Unknown Completed [facility] MMR Unknown Completed [facility] Poliovirus, Live, Unknown Completed Univers ity of Oral, Trivalent [facility] Poliovirus, Live, Unknown Completed Univers ity of Oral, Trivalent [facility] Poliovirus, Live, Unknown Completed Univers ity of Oral, Trivalent [facility] Poliovirus, Live, Unknown Completed Univers ity of Oral, Trivalent [facility] Tetanus/Diptheria Unknown Completed Univers ity [facility] TDAP Unknown Completed [facility] Varicella Unknown Completed [facility] of (varivax)([place] [place] [facility] pox) Branch Varicella Unknown Completed [facility] (varivax)([place] [place] [facility] pox) Branch SARS-COV-2 COVID-19 Unknown Completed Unive rsity of PFIZER VACCINE [facility] SARS-COV-2 COVID-19 Unknown Completed Unive rsity of PFIZER VACCINE [facility] DTP Unknown Completed [facility] DTP Unknown Completed [facility] DTP Unknown Completed [facility] DTP Unknown Completed [facility] DTaP, Unspecified Unknown Completed [facility] of Formulation [facility] Influenza Virus Unknown Completed Universit y of Vaccine Quad .5 mL [facility] 6+ MO Branch (FLUZONE/FLULAVAL/FL UARIX) Hep B, Unspecified Unknown Completed Univer sity of Formulation [facility] HEPATITIS A Unknown Completed [facility] HEPATITIS A Unknown Completed [facility] Hep B, Unspecified Unknown Completed Univer sity of Formulation [facility] Hep B, Adol or Pedi Unknown Completed Unive rsity of Dosage [facility] Hep B, Adol or Pedi Unknown Completed Unive rsity of Dosage [facility] Hep B, Adol or Pedi Unknown Completed Unive rsity of Dosage [facility] Heamophilus Unknown Completed [facility] Influenza B [facility] Heamophilus Unknown Completed [facility] Influenza B [facility] Heamophilus Unknown Completed [facility] Influenza B [facility] Heamophilus Unknown Completed [facility] Hib-HbOC Unknown Completed [facility] Hib-HbOC Unknown Completed [facility] Hib-HbOC Unknown Completed [facility] Hib-HbOC Unknown Completed [facility] HPV Unknown Completed [facility] HPV Unknown Completed [facility] HPV Unknown Completed [facility] Meningococcal Unknown Completed [place] Polysaccharide [facility] (groups A, C, Y and Branc h W-135) conjugate vaccine (MCV4P) MMR Unknown Completed [facility] MMR Unknown Completed [facility] Poliovirus, Live, Unknown Completed Univers ity of Oral, Trivalent [facility] Poliovirus, Live, Unknown Completed Univers ity of Oral, Trivalent [facility] Poliovirus, Live, Unknown Completed Univers ity of Oral, Trivalent [facility] Poliovirus, Live, Unknown Completed Univers ity of Oral, Trivalent [facility] Tetanus/Diptheria Unknown Completed Univers ity [facility] TDAP Unknown Completed [facility] Varicella Unknown Completed [facility] (varivax)([place] [place] [facility] pox) Branch Varicella Unknown Completed [facility] (varivax)(chicken [place] M [facility] pox) Branch SARS-COV-2 COVID-19 Unknown Completed Unive rsity of PFIZER VACCINE [facility] SARS-COV-2 COVID-19 Unknown Completed Unive rsity of PFIZER VACCINE [facility] DTP Unknown Completed [facility] DTP Unknown Completed [facility] DTP Unknown Completed [facility] DTP Unknown Completed [facility] DTaP, Unspecified Unknown Completed [facility] it[facility] of Formulation [facility] Influenza Virus Unknown Completed Universit y of Vaccine Quad .5 mL [facility] 6+ MO Branch (FLUZONE/FLULAVAL/FL UARIX) Hep B, Unspecified Unknown Completed Univer sity of Formulation [facility] HEPATITIS A Unknown Completed [facility] HEPATITIS A Unknown Completed [facility] Hep B, Unspecified Unknown Completed Univer sity of Formulation [facility] Hep B, Adol or Pedi Unknown Completed Unive rsity of Dosage [facility] Hep B, Adol or Pedi Unknown Completed Unive rsity of Dosage [facility] Hep B, Adol or Pedi Unknown Completed Unive rsity of Dosage [facility] Heamophilus Unknown Completed [facility] Influenza [facility] Heamophilus Unknown Completed [facility] Influenza [facility] Heamophilus Unknown Completed [facility] Influenza [facility] Heamophilus Unknown Completed [facility] Hib-HbOC Unknown Completed [facility] Hib-HbOC Unknown Completed [facility] Hib-HbOC Unknown Completed [facility] Hib-HbOC Unknown Completed [facility] HPV Unknown Completed [facility] HPV Unknown Completed [facility] HPV Unknown Completed [facility] Meningococcal Unknown Completed [facility] (groups A, C, Y and Branc h W-135) conjugate vaccine (MCV4P) MMR Unknown Completed [facility] MMR Unknown Completed [facility] Poliovirus, Live, Unknown Completed Univers ity of Oral, Trivalent [facility] Poliovirus, Live, Unknown Completed Univers ity of Oral, Trivalent [facility] Poliovirus, Live, Unknown Completed Univers ity of Oral, Trivalent [facility] Poliovirus, Live, Unknown Completed Univers ity of Oral, Trivalent [facility] Tetanus/Diptheria Unknown Completed Univers ity [facility] TDAP Unknown Completed [facility] Varicella Unknown Completed [facility] (varivax)([place] [facility] pox) [place] Varicella Unknown Completed University (varivax)(chicken [place] M [facility] pox) Branch SARS-COV-2 COVID-19 Unknown Completed Unive rsity of PFIZER VACCINE [facility] SARS-COV-2 COVID-19 Unknown Completed Unive rsity of PFIZER VACCINE [facility] DTP Unknown Completed [facility] DTP Unknown Completed [facility] DTP Unknown Completed [facility] DTP Unknown Completed [facility] DTaP, Unspecified Unknown Completed [facility] of Formulation [facility] Influenza Virus Unknown Completed [facility]it y of Vaccine Quad .5 mL [facility] 6+ MO Branch (FLUZONE/FLULAVAL/FL UARIX) Hep B, Unspecified Unknown Completed Univer sity of Formulation [facility] HEPATITIS A Unknown Completed [facility] HEPATITIS A Unknown Completed [facility] Hep B, Unspecified Unknown Completed Univer sity of Formulation [facility] Hep B, Adol or Pedi Unknown Completed Unive rsity of Dosage [facility] Hep B, Adol or Pedi Unknown Completed Unive rsity of Dosage [facility] Hep B, Adol or Pedi Unknown Completed [facility]ive [facility] of Dosage [facility] Heamophilus Unknown Completed [facility] [place] [facility] Heamophilus Unknown Completed [facility] Influenza [facility] Heamophilus Unknown Completed [facility] Influenza [facility] Heamophilus Unknown [facility]pleted [facility] Hib-HbOC Unknown Completed [facility] Hib-HbOC Unknown Completed [facility] Hib-HbOC Unknown Completed [facility] Hib-HbOC Unknown Completed [facility] HPV Unknown Completed [facility] HPV Unknown Completed [facility] HPV Unknown Completed [facility] Meningococcal Unknown Completed [facility] Polysaccharide [facility] (groups A, C, Y and Branc h W-135) conjugate vaccine (MCV4P) MMR Unknown Completed [facility] MMR Unknown Completed [facility] Poliovirus, Live, Unknown Completed Univers ity of Oral, Trivalent [facility] Poliovirus, Live, Unknown Completed Univers ity of Oral, Trivalent [facility] Poliovirus, Live, Unknown Completed Univers ity of Oral, Trivalent [facility] Poliovirus, Live, Unknown Completed Univers ity of Oral, Trivalent [facility] Tetanus/Diptheria Unknown Completed Univers ity [facility] TDAP Unknown Completed [facility] Varicella Unknown Completed University (varivax)([facility] [place] [facility] pox) Branch Varicella Unknown Completed University (varivax)(ch[facility] [place] [facility] pox) Branch SARS-COV-2 COVID-19 Unknown Completed Unive rsity of PFIZER VACCINE [facility] Branch SARS-COV-2 COVID-19 Unknown Completed Unive rsity of PFIZER VACCINE [facility] Branch DTP Unknown Completed [facility] DTP Unknown Completed [facility] DTP Unknown Completed [facility] DTP Unknown Completed [facility] DTaP, Unspecified Unknown Completed Univers ity of Formulation [facility] Influenza Virus Unknown Completed Universit y of Vaccine Quad .5 mL [facility] 6+ MO Branch (FLUZONE/FLULAVAL/FL UARIX) Hep B, Unspecified Unknown Completed Univer sity of Formulation [facility] HEPATITIS A Unknown Completed [facility] HEPATITIS A Unknown Completed [facility] Hep B, Unspecified Unknown Completed Univer sity of Formulation [facility] Hep B, Adol or Pedi Unknown Completed Unive rsity of Dosage [facility] Hep B, Adol or Pedi Unknown Completed Unive rsity of Dosage [facility] Hep B, Adol or Pedi Unknown Completed Unive rsity of Dosage [facility] Heamophilus Unknown Completed [facility] Influenza [facility] Heamophilus Unknown Completed [facility] Influenza [facility] Heamophilus Unknown Completed [facility] Influenza [facility] Heamophilus Unknown Completed [facility] Hib-HbOC Unknown Completed [facility] Hib-HbOC Unknown Completed [facility] Hib-HbOC Unknown Completed [facility] Hib-HbOC Unknown Completed [facility] HPV Unknown Completed [facility] HPV Unknown Completed [facility] HPV Unknown Completed [facility] Meningococcal Unknown Completed [facility] (groups A, C, Y and Branc h W-135) conjugate vaccine (MCV4P) MMR Unknown Completed [facility] MMR Unknown Completed [facility] Poliovirus, Live, Unknown Completed Univers ity of Oral, Trivalent [facility] Poliovirus, Live, Unknown Completed Univers ity of Oral, Trivalent [facility] Poliovirus, Live, Unknown Completed Univers ity of Oral, Trivalent [facility] Poliovirus, Live, Unknown Completed Univers ity of Oral, Trivalent [facility] Tetanus/Diptheria Unknown Completed Univers ity [facility] TDAP Unknown Completed [facility] Varicella Unknown Completed [facility] (varivax)([facility] [place] [facility] pox) Branch Varicella Unknown Completed [facility] (varivax)(chicken [place] [facility] pox) [place] SARS-COV-2 COVID-19 Unknown Completed Unive rsity of PFIZER VACCINE [facility] SARS-COV-2 COVID-19 Unknown Completed Unive rsity of PFIZER VACCINE [facility] DTP Unknown Completed [facility] DTP Unknown Completed [facility] DTP Unknown Completed [facility] DTP Unknown Completed [facility] DTaP, Unspecified Unknown Completed Univers ity of Formulation [facility] Influenza Virus Unknown Completed Universit y of Vaccine Quad .5 mL [facility] 6+ MO Branch (FLUZONE/FLULAVAL/FL UARIX) Hep B, Unspecified Unknown Completed Univer sity of Formulation [facility] HEPATITIS A Unknown Completed [facility] HEPATITIS A Unknown Completed [facility] Hep B, Unspecified Unknown Completed Univer sity of [facility] Hep B, Adol or Pedi Unknown Completed Unive rsity of Dosage [facility] Hep B, Adol or Pedi Unknown Completed Unive rsity of Dosage [facility] Hep B, Adol or Pedi Unknown Completed Unive rsity of Dosage [facility] Heamophilus Unknown Completed [facility] Influenza [facility] Heamophilus Unknown Completed [facility] Influenza [facility] Heamophilus Unknown Completed [facility] Influenza [facility] Heamophilus Unknown Completed [facility] Influenza [facility] Hib-HbOC Unknown Completed [facility] Hib-HbOC Unknown Completed [facility] Hib-HbOC Unknown Completed [facility] Hib-HbOC Unknown Completed [facility] HPV Unknown Completed [facility] HPV Unknown Completed [facility] HPV Unknown Completed [facility] Meningococcal Unknown Completed [facility] (groups A, C, Y and Branc h W-135) conjugate vaccine (MCV4P) MMR Unknown Completed [facility] MMR Unknown Completed [facility] Poliovirus, Live, Unknown Completed [facility] Oral, Trivalent [place] [facility] Poliovirus, Live, Unknown Completed Univers ity of Oral, Trivalent [facility] Poliovirus, Live, Unknown Completed Univers ity of Oral, Trivalent [facility] Branch Poliovirus, Live, Unknown Completed Univers ity of Oral, Trivalent [facility] Tetanus/Diptheria Unknown Completed Univers ity [facility] TDAP Unknown Completed [facility] Varicella Unknown Completed [facility] (varivax)(chicken [place] [facility] pox) [place] Varicella Unknown Completed [facility] (varivax)(chicken [place] [facility] pox) [place] SARS-COV-2 COVID-19 Unknown Completed Unive rsity of PFIZER VACCINE [facility] SARS-COV-2 COVID-19 Unknown Completed Unive rsity of PFIZER VACCINE [facility] DTP Unknown Completed [facility] DTP Unknown Completed [facility] DTP Unknown Completed [facility] DTP Unknown Completed [facility] DTaP, Unspecified Unknown Completed Univers ity of Formulation [facility] Influenza Virus Unknown Completed Universit y of Vaccine Quad .5 mL [facility] 6+ MO Branch (FLUZONE/FLULAVAL/FL UARIX) Hep B, Unspecified Unknown Completed Univer sity of Formulation [facility] HEPATITIS A Unknown Completed [facility] HEPATITIS A Unknown Completed [facility] Hep B, Unspecified Unknown Completed Univer sity of [facility] Hep B, Adol or Pedi Unknown Completed Unive rsity of Dosage [facility] Hep B, Adol or Pedi Unknown Completed Unive rsity of Dosage [facility] Hep B, Adol or Pedi Unknown Completed Unive rsity of Dosage [facility] Heamophilus Unknown Completed [facility] Influenza [facility] Heamophilus Unknown Completed [facility] Influenza [facility] Heamophilus Unknown Completed [facility] Influenza B [facility] Heamophilus Unknown Completed [facility] Influenza [facility] Hib-HbOC Unknown Completed [facility] Hib-HbOC Unknown Completed [facility] Hib-HbOC Unknown Completed [facility] Hib-HbOC Unknown Completed [facility] HPV Unknown Completed [facility] HPV Unknown Completed [facility] HPV Unknown Completed [facility] Meningococcal Unknown Completed [facility] (groups A, C, Y and Branc h W-135) conjugate vaccine (MCV4P) MMR Unknown Completed [facility] MMR Unknown Completed [facility] Poliovirus, Live, Unknown Completed Univers ity of Oral, Trivalent [facility] Branch Poliovirus, Live, Unknown Completed Univers ity of Oral, Trivalent [facility] Branch Poliovirus, Live, Unknown Completed Univers ity of Oral, Trivalent [facility] Poliovirus, Live, Unknown Completed Univers ity of Oral, Trivalent [facility] Tetanus/Diptheria Unknown Completed Univers ity [facility] TDAP Unknown Completed [facility] Varicella Unknown Completed [facility] (varivax)(chicken [place] [facility] pox) Branch Varicella Unknown Completed [facility] (varivax)(chicken [place] [facility] pox) Branch SARS-COV-2 COVID-19 Unknown Completed Unive rsity of PFIZER VACCINE [facility] SARS-COV-2 COVID-19 Unknown Completed Unive rsity of PFIZER VACCINE [facility] DTP Unknown Completed [facility] DTP Unknown Completed [facility] DTP Unknown Completed [facility] DTP Unknown Completed [facility] DTaP, Unspecified Unknown Completed Univers ity of Formulation [facility] Influenza Virus Unknown Completed Universit y of Vaccine Quad .5 mL [facility] 6+ MO Branch (FLUZONE/FLULAVAL/FL UARIX) Hep B, Unspecified Unknown Completed Univer sity of Formulation [facility] HEPATITIS A Unknown Completed [facility] HEPATITIS A Unknown Completed [facility] Hep B, Unspecified Unknown Completed Univer sity of Formulation [facility] Hep B, Adol or Pedi Unknown Completed Unive rsity of Dosage [facility] Hep B, Adol or Pedi Unknown Completed Unive rsity of Dosage [facility] Hep B, Adol or Pedi Unknown Completed Unive rsity of Dosage [facility] Heamophilus Unknown Completed [facility] Influenza B [facility] Heamophilus Unknown Completed [facility] Influenza B [facility] Heamophilus Unknown Completed [facility] Influenza B [facility] Heamophilus Unknown Completed [facility] Influenza B [facility] Hib-HbOC Unknown Completed [facility] Hib-HbOC Unknown Completed [facility] Hib-HbOC Unknown Completed [facility] Hib-HbOC Unknown Completed [facility] HPV Unknown Completed [facility] HPV Unknown Completed [facility] HPV Unknown Completed [facility] Meningococcal Unknown Completed [place] Polysaccharide [facility] (groups A, C, Y and Branc h W-135) conjugate vaccine (MCV4P) MMR Unknown Completed [facility] MMR Unknown Completed [facility] Poliovirus, Live, Unknown Completed Univers ity of Oral, Trivalent [facility] Branch Poliovirus, Live, Unknown Completed Univers ity of Oral, Trivalent [facility] Branch Poliovirus, Live, Unknown Completed Univers ity of Oral, Trivalent [facility] Branch Poliovirus, Live, Unknown Completed Univers ity of Oral, Trivalent [facility] Branch Tetanus/Diptheria Unknown Completed Univers ity [facility] TDAP Unknown Completed [facility] Varicella Unknown Completed University (varivax)([place] [place] [facility] pox) Branch Varicella Unknown Completed [facility] (varivax)(chicken [place] [facility] pox) [place] SARS-COV-2 COVID-19 Unknown Completed Unive rsity of PFIZER VACCINE [facility] SARS-COV-2 COVID-19 Unknown Completed Unive rsity of PFIZER VACCINE [facility] DTP Unknown Completed [facility] DTP Unknown Completed [facility] DTP Unknown Completed [facility] DTP Unknown Completed [facility] DTaP, Unspecified Unknown Completed Univers ity of Formulation [facility] Influenza Virus Unknown Completed Universit y of Vaccine Quad .5 mL [facility] 6+ MO Branch (FLUZONE/FLULAVAL/FL UARIX) Hep B, Unspecified Unknown Completed Univer sity of Formulation [facility] HEPATITIS A Unknown Completed [facility] HEPATITIS A Unknown Completed [facility] Hep B, Unspecified Unknown Completed Univer sity of Formulation [facility] Hep B, Adol or Pedi Unknown Completed Unive rsity of Dosage [facility] Hep B, Adol or Pedi Unknown Completed Unive rsity of Dosage [facility] Hep B, Adol or Pedi Unknown Completed Unive rsity of Dosage [facility] Heamophilus Unknown Completed [facility] Influenza B [facility] Heamophilus Unknown Completed [facility] Influenza B [facility] Heamophilus Unknown Completed [facility] Influenza B [facility] Heamophilus Unknown Completed [facility] Influenza B [facility] Hib-HbOC Unknown Completed [facility] Hib-HbOC Unknown Completed [facility] Hib-HbOC Unknown Completed [facility] Hib-HbOC Unknown Completed [facility] HPV Unknown Completed [facility] HPV Unknown Completed [facility] HPV Unknown Completed [facility] Meningococcal Unknown Completed [facility] (groups A, C, Y and Branc h W-135) conjugate vaccine (MCV4P) MMR Unknown Completed [facility] MMR Unknown Completed [facility] Poliovirus, Live, Unknown Completed Univers ity of Oral, Trivalent [facility] ical Branch Poliovirus, Live, Unknown Completed Univers ity of Oral, Trivalent [facility] Branch Poliovirus, Live, Unknown Completed Univers ity of Oral, Trivalent [facility] ica Branch Poliovirus, Live, Unknown Completed Univers ity of Oral, Trivalent [facility] Tetanus/Diptheria [facility] Varicella Unknown Completed [facility] (varivax)(chicken [place] [facility] pox) Branch Varicella Unknown Completed [facility] (varivax)(chicken [place] [facility] pox) [place] PFIZER COVID-19 MRNA Unknown Completed [facility] PFIZER COVID-19 MRNA Unknown Completed [facility] Vital Signs Vital Name Observation Time Observation Value Comments Source Systolic blood 2023-07-05 114 mm[Hg] University of pressure 17:46:17 [facility] Diastolic blood 2023-07-05 94 mm[Hg] [place] o pressure 17:46:17 [facility] Heart rate 2023-07-05 93 /min University 17:46:17 [facility] Body temperature 2023-07-05 37 Alisha University 17:46:17 [facility] Respiratory rate 2023-07-05 16 /min University 17:46:17 [facility] Body height 2023-07-05 160 cm University of 17:44:00 [facility] Body weight 2023-07-05 67.586 kg University of 17:44:00 [facility] BMI 2023-07-05 26.39 kg/m2 University of 17:44:00 [facility] Oxygen saturation 2023-07-05 100 /min [facility] in Arterial blood 17:44:00 [facility] by Pulse oximetry Branch Systolic blood 2023-07-01 116 mm[Hg] University of pressure 16:23:00 [facility] Diastolic blood 2023-07-01 76 mm[Hg] University o f pressure 16:23:00 [facility] Heart rate 2023-07-01 66 /min University of 16:23:00 [facility] Body temperature 2023-07-01 36.28 Alisha University of 16:23:00 [facility] Respiratory rate 2023-07-01 18 /min University of 16:23:00 [facility] Body height 2023-07-01 160 cm University of 16:23:00 [facility] Body weight 2023-07-01 70.852 kg University of 16:23:00 [facility] BMI 2023-07-01 27.67 kg/m2 University of 16:23:00 [facility] Oxygen saturation 2023-07-01 100 /min University of in Arterial blood 16:23:00 [place] [facility] by Pulse oximetry Branch Systolic blood 2023-06-29 120 mm[Hg] University of pressure 18:40:00 [facility] Diastolic blood 2023-06-29 82 mm[Hg] University o f pressure 18:40:00 [facility] Heart rate 2023-06-29 81 /min University of 18:40:00 [facility] Body temperature 2023-06-29 36.5 Alisha University of 18:40:00 [facility] Respiratory rate 2023-06-29 18 /min University of 18:40:00 [facility] Body height 2023-06-29 160 cm University of 18:40:00 [facility] Body weight 2023-06-29 67.586 kg University of 18:40:00 [facility] BMI 2023-06-29 26.39 kg/m2 University of 18:40:00 [facility] Oxygen saturation 2023-06-29 100 /min University of in Arterial blood 18:40:00 [place] [facility] by Pulse oximetry Branch Systolic blood 2023-06-10 133 mm[Hg] University of pressure 15:38:00 [facility] Branch Diastolic blood 2023-06-10 78 mm[Hg] University o f pressure 15:38:00 [facility] Heart rate 2023-06-10 90 /min University of 15:38:00 [facility] Branch Body height 2023-06-10 160 cm University of 15:38:00 [facility] Body weight 2023-06-10 69.627 kg University of 15:38:00 [facility] BMI 2023-06-10 27.19 kg/m2 University of 15:38:00 [facility] Branch Oxygen saturation 2023-06-10 99 /min University of in Arterial blood 15:38:00 [place] [facility] by Pulse oximetry Branch Systolic blood 2023-03-02 133 mm[Hg] University of pressure 17:25:00 [facility] Branch Diastolic blood 2023-03-02 79 mm[Hg] University o f pressure 17:25:00 [facility] Heart rate 2023-03-02 86 /min University of 17:25:00 [facility] Body temperature 2023-03-02 36.67 Alisha University of 17:25:00 [facility] Respiratory rate 2023-03-02 16 /min University of 17:25:00 [facility] Body height 2023-03-02 160 cm University of 17:25:00 [facility] Body weight 2023-03-02 69.627 kg University of 17:25:00 [facility] BMI 2023-03-02 27.19 kg/m2 University of 17:25:00 [facility] Oxygen saturation 2023-03-02 97 /min University of in Arterial blood 17:25:00 [place] [facility] by Pulse oximetry Branch Systolic blood 2023-01-21 156 mm[Hg] University of pressure 23:13:33 [facility] Branch Diastolic blood 2023-01-21 100 mm[Hg] University o f pressure 23:13:33 [facility] Heart rate 2023-01-21 88 /min University of 23:13:33 [facility] Respiratory rate 2023-01-21 20 /min University of 23:13:33 [facility] Oxygen saturation 2023-01-21 100 /min University of in Arterial blood 23:13:33 [facility] shanice by Pulse oximetry Branch Body height 2023-01-21 160 cm University of 18:44:00 [facility] Body weight 2023-01-21 69.854 kg University of 18:44:00 [facility] BMI 2023-01-21 27.28 kg/m2 University of 18:44:00 [facility] Body temperature 2023-01-21 37.11 Alisha University of 18:43:00 [facility] Systolic blood 2023-01-15 121 mm[Hg] University of pressure 18:01:00 [facility] Diastolic blood 2023-01-15 81 mm[Hg] University o f pressure 18:01:00 [facility] Heart rate 2023-01-15 83 /min University of 18:01:00 [facility] Respiratory rate 2023-01-15 16 /min University of 18:01:00 [facility] Oxygen saturation 2023-01-15 97 /min University of in Arterial blood 18:01:00 [place] [facility] Pulse oximetry Branch Body temperature 2023-01-15 36.89 Alisha University of 14:55:07 [facility] Body weight 2023-01-15 68.04 kg University of 13:47:00 [facility] BMI 2023-01-15 26.57 kg/m2 University of 13:47:00 [facility] Systolic blood 2023-01-15 131 mm[Hg] University of pressure 10:13:00 [facility] Diastolic blood 2023-01-15 83 mm[Hg] University o f pressure 10:13:00 [facility] Heart rate 2023-01-15 104 /min University of 10:13:00 [facility] Body temperature 2023-01-15 36.94 Alisha University of 10:13:00 [facility] Respiratory rate 2023-01-15 21 /min University of 10:13:00 [facility] Body height 2023-01-15 160 cm University of 10:13:00 [facility] Body weight 2023-01-15 68.04 kg University of 10:13:00 [facility] BMI 2023-01-15 26.57 kg/m2 University of 10:13:00 [facility] Oxygen saturation 2023-01-15 100 /min University of in Arterial blood 10:13:00 [facility] shanice by Pulse oximetry Branch Systolic blood 2022-12-31 128 mm[Hg] University of pressure 05:09:00 [facility] Diastolic blood 2022-12-31 79 mm[Hg] University o f pressure 05:09:00 [facility] Heart rate 2022-12-31 71 /min University of 05:09:00 [facility] Body temperature 2022-12-31 36.78 Alisha University of 05:09:00 [facility] Respiratory rate 2022-12-31 16 /min University of 05:09:00 [facility] Body height 2022-12-31 160 cm University of 05:09:00 [facility] Body weight 2022-12-31 67.586 kg University of 05:09:00 [facility] BMI 2022-12-31 26.39 kg/m2 University of 05:09:00 [facility] Oxygen saturation 2022-12-31 100 /min University of in Arterial blood 05:09:00 [facility] by Pulse oximetry Branch Systolic blood 2022-12-22 132 mm[Hg] University of pressure 13:18:00 [facility] Diastolic blood 2022-12-22 92 mm[Hg] University o f pressure 13:18:00 [facility] Heart rate 2022-12-22 78 /min University of 13:18:00 [facility] Respiratory rate 2022-12-22 18 /min University of 13:18:00 [facility] Body height 2022-12-22 160 cm University of 13:18:00 [facility] Body weight 2022-12-22 69.4 kg University of 13:18:00 [facility] BMI 2022-12-22 27.10 kg/m2 University of 13:18:00 [facility] Systolic blood 2022-12-19 102 mm[Hg] University of pressure 10:00:00 [facility] Diastolic blood 2022-12-19 60 mm[Hg] University o f pressure 10:00:00 [facility] Heart rate 2022-12-19 85 /min University of 10:00:00 [facility] Respiratory rate 2022-12-19 13 /min University of 10:00:00 [facility] Oxygen saturation 2022-12-19 96 /min University of in Arterial blood 10:00:00 [facility] by Pulse oximetry [place] Body temperature 2022-12-19 36.28 Alisha University of 07:30:00 [facility] Body height 2022-12-19 160 cm University of 07:30:00 [facility] Body weight 2022-12-19 67.132 kg University of 07:30:00 [facility] BMI 2022-12-19 26.22 kg/m2 University of 07:30:00 [facility] Systolic blood 2022-12-15 125 mm[Hg] University of pressure 15:48:00 [facility] Diastolic blood 2022-12-15 77 mm[Hg] University o f pressure 15:48:00 [facility] Heart rate 2022-12-15 75 /min University of 15:48:00 [facility] Body height 2022-12-15 160 cm University of 15:48:00 [facility] Body weight 2022-12-15 68.448 kg University of 15:48:00 [facility] BMI 2022-12-15 26.73 kg/m2 University of 15:48:00 [facility] Oxygen saturation 2022-12-15 98 /min University of in Arterial blood 15:48:00 [place] [facility] by Pulse oximetry Branch Systolic blood 2022-12-14 132 mm[Hg] University of pressure 08:04:00 [facility] Diastolic blood 2022-12-14 87 mm[Hg] University o f pressure 08:04:00 [facility] Heart rate 2022-12-14 83 /min University of 08:04:00 [facility] Body temperature 2022-12-14 36.67 Alisha University of 08:04:00 [facility] Respiratory rate 2022-12-14 20 /min University of 08:04:00 [facility] Body height 2022-12-14 160 cm University of 08:04:00 [facility] Body weight 2022-12-14 67.132 kg University of 08:04:00 [facility] BMI 2022-12-14 26.22 kg/m2 University of 08:04:00 [facility] Oxygen saturation 2022-12-14 97 /min University of in Arterial blood 08:04:00 [facility]ice by Pulse oximetry Branch Systolic blood 2022-11-03 143 mm[Hg] University of pressure 17:45:00 [facility] Diastolic blood 2022-11-03 89 mm[Hg] University o f pressure 17:45:00 [facility] Heart rate 2022-11-03 89 /min University of 17:45:00 [facility] Respiratory rate 2022-11-03 16 /min University of 17:45:00 [facility] Oxygen saturation 2022-11-03 99 /min University of in Arterial blood 17:45:00 [place] [facility] Pulse oximetry [facility] Body temperature 2022-11-03 36.61 Alisha University of 14:13:00 [facility] Body height 2022-11-03 160 cm University of 14:13:00 [facility] Body weight 2022-11-03 68.04 kg University of 14:13:00 [facility] BMI 2022-11-03 26.57 kg/m2 University of 14:13:00 [facility] Systolic blood 2022-10-28 115 mm[Hg] University of pressure 21:02:00 [facility] Diastolic blood 2022-10-28 69 mm[Hg] University o f pressure 21:02:00 [facility] Heart rate 2022-10-28 93 /min University of 21:02:00 [facility] Body temperature 2022-10-28 36.89 Alisha University of 21:02:00 [facility] Body height 2022-10-28 160 cm University of 21:02:00 [facility] Body weight 2022-10-28 70.308 kg University of 21:02:00 [facility] BMI 2022-10-28 27.46 kg/m2 University of 21:02:00 [facility] Oxygen saturation 2022-10-28 100 /min University of in Arterial blood 21:02:00 [facility] shanice by Pulse oximetry Branch Systolic blood 2022-10-13 133 mm[Hg] University of pressure 07:58:00 [facility] Diastolic blood 2022-10-13 72 mm[Hg] University o f pressure 07:58:00 [facility] Heart rate 2022-10-13 109 /min University of 07:58:00 [facility] Body temperature 2022-10-13 36.78 Alisha University of 07:58:00 [facility] Respiratory rate 2022-10-13 16 /min University of 07:58:00 [facility] Body weight 2022-10-13 67.132 kg University of 07:58:00 [facility] BMI 2022-10-13 26.22 kg/m2 University of 07:58:00 [facility] Oxygen saturation 2022-10-13 99 /min University of in Arterial blood 07:58:00 [place] [facility] by Pulse oximetry Branch Systolic blood 2022-10-10 120 mm[Hg] University of pressure 00:44:00 [facility] Diastolic blood 2022-10-10 82 mm[Hg] University o f pressure 00:44:00 [facility] Heart rate 2022-10-10 110 /min University of 00:44:00 [facility] Body temperature 2022-10-10 36.33 Alisha University of 00:44:00 [facility] Respiratory rate 2022-10-10 18 /min University of 00:44:00 [facility] Body height 2022-10-10 160 cm University of 00:44:00 [facility] Body weight 2022-10-10 67.132 kg University of 00:44:00 [facility] BMI 2022-10-10 26.22 kg/m2 University of 00:44:00 [facility] Oxygen saturation 2022-10-10 99 /min University of in Arterial blood 00:44:00 [place] [facility] by Pulse oximetry Branch Systolic blood 2022-09-10 165 mm[Hg] University of pressure 00:13:00 [facility] Diastolic blood 2022-09-10 99 mm[Hg] University o f pressure 00:13:00 [facility] Heart rate 2022-09-10 125 /min University of :13:00 [facility] Body temperature 2022-09-10 36.61 Alisha University of 00:13:00 [facility] Respiratory rate 2022-09-10 20 /min University of 00:13:00 [facility] Body weight 2022-09-10 65.772 kg University of 00:13:00 [facility] BMI 2022-09-10 25.69 kg/m2 University of 00:13:00 [facility] Oxygen saturation 2022-09-10 99 /min University of in Arterial blood 00:13:00 [place] [facility] by Pulse oximetry Branch Systolic blood 2022-08-18 134 mm[Hg] University of pressure 22:36:00 [facility] Diastolic blood 2022-08-18 86 mm[Hg] University o f pressure 22:36:00 [facility] Heart rate 2022-08-18 100 /min University of 22:36:00 [facility] Body temperature 2022-08-18 37.11 Alisha University of 22:36:00 [facility] Respiratory rate 2022-08-18 20 /min University of 22:36:00 [facility] Body height 2022-08-18 160 cm University of 22:36:00 [facility] Body weight 2022-08-18 67.132 kg University of 22:36:00 [facility] BMI 2022-08-18 26.22 kg/m2 University of 22:36:00 [facility] Oxygen saturation 2022-08-18 100 /min University of in Arterial blood 22:36:00 [place] [facility] by Pulse oximetry Branch Oxygen saturation 2022-01-20 99 /min [facility] Arterial blood 18:11:00 [facility] by Pulse oximetry Systolic blood 2022-01-20 123 mm[Hg] [facility] pressure 18:11:00 Hospital Diastolic blood 2022-01-20 85 mm[Hg] [facility] pressure 18:11:00 Hospital Heart rate 2022-01-20 88 /min [facility] 18:11:00 [facility] Body temperature 2022-01-20 36.28 Alisha [facility] 18:11:00 [facility] Respiratory rate 2022-01-20 20 /min [facility] 18:11:00 [facility] Body height 2022-01-20 160 cm [facility] 18:11:00 [facility] Body weight 2022-01-20 66.225 kg [facility] 18:11:00 [facility] BMI 2022-01-20 25.86 kg/m2 [facility] 18:11:00 [facility] Systolic blood 2020-02-16 147 mm[Hg] [facility] [...] Systolic blood 2020-01-31 108 mm[Hg] [facility] [place] [facility] pressure 08:57:00 Position: Sitting Diastolic blood 2020-01-31 76 mm[Hg] [facility] [place] [facility] 08:57:00 Position: Sitting Body height 2020-01-31 67 [in_us] [facility] 08:57:00 Weight 2020-01-31 159.375 [lb_av] [facility] 08:57:00 Body mass index 2020-01-31 24.96 kg/m2 [facility] (BMI) [Ratio] 08:57:00 Body temperature 2020-01-31 97.9 [degF] Method: Oral [facility] 08:57:00 Heart Rate 2020-01-31 78 /min [facility] 08:57:00 BP Systolic 2019-06-28 130 mm[Hg] [facility] 16:14:00 Position: Sitting BP Diastolic 2019-06-28 82 mm[Hg] [facility] 16:14:00 Position: Sitting Height 2019-06-28 67 [...] Source Performed CBC WITH DIFF 2023-07-05 18:17:00 oDnta Qiu [facility] POCT TEST 2023-07-05 18:05:[address] [facility] CONSENT/REFUSAL FOR 2023-07-05 17:29:05 Doctor Unassigned, No Un [facility] DIAGNOSIS AND TREATMENT Name Medical Branch CT ABDOMEN PELVIS W 2023-01-21 21:07:22 Evangelina Abad [facility] CONTRAST Medical Branch POCT TEST 2023-01-21 19:34:00 Gutierrez Moncada Uni versity [facility] Medical Branch LIPASE 2023-01-21 19:32:00 Gutierrez Moncada [facility] TROPONIN I 2023-01-21 19:32:00 Evangelina Abad [facility] COMP. METABOLIC PANEL 2023-01-21 19:32:00 Gutierrez Moncada U [facility] ([id number]) Medical Branch CBC WITH DIFF 2023-01-21 19:32:00 Gutierrez Moncada [facility] URINALYSIS 2023-01-21 19:32:00 Gutierrez Moncada [facility] CONSENT/REFUSAL FOR 2023-01-21 18:36:13 Doctor Unassigned, No [facility] [place] DI[facility] TREATMENT Name Medical Branch LIPASE 2023-01-15 14:47:00 Luiza Lal [facility] COMP. METABOLIC PANEL 2023-01-15 14:47:00 Luiza Lal [facility] ([id number]) Medical Branch CBC WITH DIFF 2023-01-15 14:47:00 Luiza Lal [facility] Branch CONSENT/REFUSAL FOR 2023-01-15 13:41:26 Doctor Unassigned, No [facility] [place] DIAGNOSIS AND TREATMENT Name Medical Branch CONSENT/REFUSAL FOR 2023-01-15 10:06:16 Doctor Unassigned, No [facility] [place] DIAGNOSIS AND TREATMENT Name Medical Branch EXTERNAL PROVIDER 2023-01-07 05:01:00 Doctor Unassigned, No [facility] [place] RECORDS Name Medical Branch EXTERNAL PROVIDER 2023-01-04 05:01:00 Doctor Unassigned, No [facility] [place] RECORDS Name Medical Branch CONSENT/REFUSAL FOR 2022-12-31 05:04:15 Doctor Unassigned, No [facility] [place] DIAGNOSIS AND TREATMENT Name Medical Branch CT ANGIOGRAPHY 2022-12-30 17:15:00 Amrit Ma [facility] CORONARIES WITHOUT Medical Branc h CARDIAC CALCIUM SCORING HB CREATININE 2022-12-30 16:24:00 Amrit Ma [facility] SERUM/BLOOD FOR IMAGING Medical Branch CONSENT/REFUSAL FOR 2022-12-30 15:17:01 Doctor Unassigned, No [facility] [place] DIAGNOSIS AND TREATMENT Name Medical Branch EXTERNAL PROVIDER 2022-12-29 05:01:00 Doctor Unassigned, No [facility] RECORDS Name Medical Branch AUTHORIZATION TO RELEASE 2022-12-21 05:01:00 Doctor Unassigned, No [facility] PHI TO [facility] Name Medical Branch CT ANGIOGRAM CHEST 2022-12-19 09:28:[address] [facility] TROPONIN I 2022-12-19 08:40:00 Iza Medina [facility] D-DIMER 2022-12-19 08:40:00 Iza Medina [facility] CONSENT/REFUSAL FOR 2022-12-19 07:30:10 Doctor Unassigned, No [facility] [place] [facility] TREATMENT Name [facility] Branch D-DIMER 2022-12-14 10:47:00 Iza Medina [facility] TROPONIN I 2022-12-14 10:16:00 Iza Medina [facility] LIPASE 2022-12-14 08:31:00 Iza Medina [facility] TROPONIN I 2022-12-14 08:31:00 Iza Medina [facility] COMP. METABOLIC PANEL 2022-12-14 08:31:00 Iza Medina [facility] ([id number]) Medical Branch CBC WITH DIFF 2022-12-14 08:31:00 Iza Medina [facility] THYROID STIMULATING 2022-12-14 08:31:00 Amrit Ma [facility] HORMONE Medical Branch NOTICE OF PRIVACY 2022-12-14 07:50:02 Doctor Unassigned, No [facility] PRACTICES Name Medical Branch CONSENT/REFUSAL FOR 2022-12-14 07:49:31 [facility] Name Medical Branch URINALYSIS 2022-11-03 15:27:00 Claudia Dotson [facility] URINE DRUG (IMMUNOASSAY) 2022-11-03 15:27:00 Claudia Dotson [facility] - COMPREHENSIVE DRUG Medical Bra mnh SCREEN W/O REFLEX TEST, SERUM 2022-11-03 14:38:00 Claudia Dotson [facility] COMP. METABOLIC PANEL 2022-11-03 14:38:00 Claudia Dotson [facility] ([id number]) Medical [place] CBC WITH DIFF 2022-11-03 14:38:00 Claudia Dotson [facility] D-DIMER 2022-11-03 14:38:00 Claudia Dotson [facility] CONSENT/REFUSAL FOR 2022-11-03 14:04:36 Doctor Unassigned, No [facility] [place] DIAGNOSIS AND TREATMENT Name Medical Branch CONSENT/REFUSAL FOR 2022-10-28 20:34:23 Doctor Unassigned, No [facility] [place] DIAGNOSIS AND TREATMENT Name Medical Branch CONSENT/REFUSAL FOR 2022-10-13 07:49:25 Doctor Unassigned, No [facility] [place] DIAGNOSIS AND TREATMENT Name Medical Branch CONSENT/REFUSAL FOR 2022-10-10 00:16:57 Doctor Unassigned, No [facility] [place] DIAGNOSIS AND TREATMENT Name Medical Branch MRI LUMBAR SPINE WO 2022-10-07 00:35:00 Jorge Luis Mcdonnell [facility] CONTRAST MRI CERVICAL SPINE WO 2022-10-07 00:22:00 Jorge Luis Mcdonnell [facility] CONTRAST CONSENT/REFUSAL FOR 2022-09-10 00:07:30 Doctor Unassigned, No [facility] [place] DIAGNOSIS AND TREATMENT Name Medical Branch CONSENT/REFUSAL FOR 2022-08-18 22:20:24 Doctor Unassigned, No [facility] [place] DIAGNOSIS AND TREATMENT Name Medical Branch CT SPINE EXTERNAL STUDY 2021-11-28 20:02:53 [facility] CT SPINE EXTERNAL STUDY 2021-11-28 [facility]:57[facility] 2021-11-28 19:52:18 [facility] REFERRAL- 2021-11-21 05:01:00 Doctor Unassigned, Inez Sena [facility] REQUEST/RESPONSE Name Medical Branch MRI SPINE EXTERNAL STUDY 2021-10-09 18:17:21 [facility] [QL] CBC (INCLUDES 2020-02-16 00:00:00 [facility] [...] [facility] Trans[facility]aginal [facility] [address] [facility] of [facility] section low transverse Plan of Care Planned Activity Planned Date Details Comments Source Future Scheduled 2023-07-01 Pneumococcal Vaccine: [facility] Test 21:11:54 Pediatrics (0 to 5 Years) and At-Risk Patients (6 to 64 Years) (1 - PCV) [code = Pneumococcal Vaccine: Pediatrics (0 to 5 Years) and At-Risk Patients (6 to 64 Years) (1 - PCV)] Future Scheduled 2023-07-01 Hepatitis C screening [facility] Test 21:11:54 (procedure) [code = 512280723] Future Scheduled 2023-07-01 Screening for [facility] Test 21:11:54 malignant neoplasm of cervix (procedure) [code = 885919323] Future Scheduled 2023-07-01 COVID-19 VACCINE (3 - [facility] Test 21:11:54 ) [code = COVID-19 VACCINE ()] Future Scheduled 2023-07-01 INFLUENZA VACCINE (#1) [facility] Test 21:11:54 [code = INFLUENZA VACCINE (#1)] Future Scheduled 2023-07-01 Pneumococcal Vaccine: [facility] Test 21:11:54 Pediatrics (0 to 5 Years) and At-Risk Patients (6 to 64 Years) (1 - PCV) [code = Pneumococcal Vaccine: Pediatrics (0 to 5 Years) and At-Risk Patients (6 to 64 Years) (1 - PCV)] Future Scheduled 2023-07-01 Hepatitis C screening [facility] Test 21:11:54 (procedure) [code = 848341968] Future Scheduled 2023-07-01 Screening for [facility] Test 21:11:54 malignant neoplasm of cervix (procedure) [code = 276154806] Future Scheduled 2023-07-01 COVID-19 VACCINE (3 - [facility] Test 21:11:54 ) [code = COVID-19 VACCINE ()] Future Scheduled 2023-07-01 INFLUENZA VACCINE (#1) [facility] Test 21:11:54 [code = INFLUENZA VACCINE (#1)] Future Scheduled 2023-07-01 Pneumococcal Vaccine: [facility] Test 21:11:54 Pediatrics (0 to 5 Years) and At-Risk Patients (6 to 64 Years) (1 - PCV) [code = Pneumococcal Vaccine: Pediatrics (0 to 5 Years) and At-Risk Patients (6 to 64 Years) (1 - PCV)] Future Scheduled 2023-07-01 Hepatitis C screening [facility] Test 21:11:54 (procedure) [code = 323333696] Future Scheduled 2023-07-01 Screening for [facility] Test 21:11:54 malignant neoplasm of cervix (procedure) [code = 196426722] Future Scheduled 2023-07-01 COVID-19 VACCINE (3 - [facility] Test 21:11:54 ) [code = COVID-19 VACCINE ( season)] Future Scheduled 2023-07-01 INFLUENZA VACCINE (#1) [facility] Test 21:11:54 [code = INFLUENZA VACCINE (#1)] Future Scheduled 2023-07-01 Pneumococcal Vaccine: [facility] Test 21:11:54 Pediatrics (0 to 5 Years) and At-Risk Patients (6 to 64 Years) (1 - PCV) [code = Pneumococcal Vaccine: Pediatrics (0 to 5 Years) and At-Risk Patients (6 to 64 Years) (1 - PCV)] Future Scheduled 2023-07-01 Hepatitis C screening [facility] Test 21:11:54 (procedure) [code = 647152335] Future Scheduled 2023-07-01 Screening for [facility] Test 21:11:54 malignant neoplasm of cervix (procedure) [code = 199421970] Future Scheduled 2023-07-01 COVID-19 VACCINE (3 - [facility] Test 21:11:54 ) [code = COVID-19 VACCINE ()] Future Scheduled 2023-07-01 INFLUENZA VACCINE (#1) [facility] Test 21:11:54 [code = INFLUENZA VACCINE (#1)] Future Scheduled 2023-07-01 Pneumococcal Vaccine: [facility] Test 21:11:54 Pediatrics (0 to 5 Years) and At-Risk Patients (6 to 64 Years) (1 - PCV) [code = Pneumococcal Vaccine: Pediatrics (0 to 5 Years) and At-Risk Patients (6 to 64 Years) (1 - PCV)] Future Scheduled 2023-07-01 Hepatitis C screening [facility] Test 21:11:54 (procedure) [code = 386258724] Future Scheduled 2023-07-01 Screening for [facility] Test 21:11:54 malignant neoplasm of cervix (procedure) [code = 602268444] Future Scheduled 2023-07-01 COVID-19 VACCINE (3 - [facility] [facility] Test 21:11:54 ) [code = COVID-19 VACCINE (3 - 2023-24 season)] Future Scheduled 2023-07-01 INFLUENZA VACCINE (#1) [facility] Test 21:11:54 [code = INFLUENZA VACCINE (#1)] Future Scheduled 2023-07-01 Pneumococcal Vaccine: [facility] Test 21:11:54 Pediatrics (0 to 5 Years) and At-Risk Patients (6 to 64 Years) (1 - PCV) [code = Pneumococcal Vaccine: Pediatrics (0 to 5 Years) and At-Risk Patients (6 to 64 Years) (1 - PCV)] Future Scheduled 2023-07-01 Hepatitis C screening [facility] Test 21:11:54 (procedure) [code = 438050283] Future Scheduled 2023-07-01 Scre[facility] Test 21:11:54 malignant neoplasm of cervix (procedure) [code = 249089445] Future Scheduled 2023-07-01 COVID-19 VACCINE (3 - [facility] Test 21:11:54 ) [code = COVID-19 VACCINE ()] Future Scheduled 2023-07-01 INFLUENZA VACCINE (#1) [facility] Test 21:11:54 [code = INFLUENZA VACCINE (#1)] Future Scheduled 2023-07-01 Pneumococcal Vaccine: [facility] Test 21:11:54 Pediatrics (0 to 5 Years) and At-Risk Patients (6 to 64 Years) (1 - PCV) [code = Pneumococcal Vaccine: Pediatrics (0 to 5 Years) and At-Risk Patients (6 to 64 Years) (1 - PCV)] Future Scheduled 2023-07-01 Hepatitis C screening [facility] Test 21:11:54 (procedure) [code = 371477443] Future Scheduled 2023-07-01 Scre[facility] for [facility] Test 21:11:54 malignant neoplasm of cervix (procedure) [code = 503668495] Future Scheduled 2023-07-01 COVID-19 VACCINE (3 - [facility] Test 21:11:54 ) [code = COVID-19 VACCINE ()] Future Scheduled 2023-07-01 INFLUENZA VACCINE (#1) [facility] Test 21:11:54 [code = INFLUENZA VACCINE (#1)] Future Scheduled 2023-07-01 Pneumococcal Vaccine: [facility] Test 21:11:54 Pediatrics (0 to 5 Years) and At-Risk Patients (6 to 64 Years) (1 - PCV) [code = Pneumococcal Vaccine: Pediatrics (0 to 5 Years) and At-Risk Patients (6 to 64 Years) (1 - PCV)] Future Scheduled 2023-07-01 Hepatitis C screening [facility] Test 21:11:54 (procedure) [code = 019919896] Future Scheduled 2023-07-01 Screening for [facility] Test 21:11:54 malignant neoplasm of cervix (procedure) [code = 536755293] Future Scheduled 2023-07-01 COVID-19 VACCINE (3 - [facility] Test 21:11:54 season) [code = COVID-19 VACCINE ( season)] Future Scheduled 2023-07-01 INFLUENZA VACCINE (#1) [facility] Test 21:11:54 [code = INFLUENZA VACCINE (#1)] Future Scheduled 2023-07-01 Pneumococcal Vaccine: [facility] Test 21:11:54 Pediatrics (0 to 5 Years) and At-Risk Patients (6 to 64 Years) (1 - PCV) [code = Pneumococcal Vaccine: Pediatrics (0 to 5 Years) and At-Risk Patients (6 to 64 Years) (1 - PCV)] Future Scheduled 2023-07-01 Hepatitis C screening [facility] Test 21:11:54 (procedure) [code = 837411101] Future Scheduled 2023-07-01 Screening for [facility] Test 21:11:54 malignant neoplasm of cervix (procedure) [code = 230608564] Future Scheduled 2023-07-01 COVID-19 VACCINE (3 - [facility] Test 21:11:54 ) [code = COVID-19 VACCINE ( season)] Future Scheduled 2023-07-01 INFLUENZA VACCINE (#1) [facility] Test 21:11:54 [code = INFLUENZA VACCINE (#1)] Future Scheduled 2023-06-18 Pneumococcal Vaccine: [facility] Test 03:36:13 Pediatrics (0 to 5 Years) and At-Risk Patients (6 to 64 Years) (1 - PCV) [code = Pneumococcal Vaccine: Pediatrics (0 to 5 Years) and At-Risk Patients (6 to 64 Years) (1 - PCV)] Future Scheduled 2023-06-18 Hepatitis C screening [facility] Test 03:36:13 (procedure) [code = 932265943] Future Scheduled 2023-06-18 Screening for [facility] Test 03:36:13 malignant neoplasm of cervix (procedure) [code = 539360629] Future Scheduled 2023-06-18 COVID-19 VACCINE (3 - [facility] Test 03:36:13 season) [code = COVID-19 VACCINE (3 - season)] Future Scheduled 2023-06-18 INFLUENZA VACCINE (#1) [facility] Test 03:36:13 [code = INFLUENZA VACCINE (#1)] Future Scheduled 2023-06-18 RSV VACCINES > 60 YR [facility] Test 03:36:13 (1 - 1-dose 60+ series) [code = RSV VACCINES > 60 YR (1 - 1-dose 60+ series)] Future Scheduled 2023-06-12 Pneumococcal Vaccine: [facility] Test 08:20:18 Pediatrics (0 to 5 Years) and At-Risk Patients (6 to 64 Years) (1 - PCV) [code = Pneumococcal Vaccine: Pediatrics (0 to 5 Years) and At-Risk Patients (6 to 64 Years) (1 - PCV)] Future Scheduled 2023-06-12 Hepatitis C screening [facility] Test 08:20:18 (procedure) [code = 189974361] Future Scheduled 2023-06-12 Screening for [facility] Test 08:20:18 malignant neoplasm of cervix (procedure) [code = 832728688] Future Scheduled 2023-06-12 COVID-19 VACCINE (3 - [facility] Test 08:20:18 Pfizer series) [code = COVID-19 VACCINE (3 - Pfizer series)] Future Scheduled 2023-06-12 INFLUENZA VACCINE (#1) [facility] Test 08:20:18 [code = INFLUENZA VACCINE (#1)] Future Scheduled 2023-02-19 Pneumococcal Vaccine: [facility] Test 07:49:13 Pediatrics (0 to 5 Years) and At-Risk Patients (6 to 64 Years) (1 - PCV) [code = Pneumococcal Vaccine: Pediatrics (0 to 5 Years) and At-Risk Patients (6 to 64 Years) (1 - PCV)] Future Scheduled 2023-02-19 [facility] Test 07:49:13 (procedure) [code = 505160612] Future Scheduled 2023-02-19 Scre[facility] Test 07:49:13 malignant neoplasm of cervix (procedure) [code = 986444686] Future Scheduled 2023-02-19 COVID-19 VACCINE (3 - [facility] Test 07:49:13 Pfizer series) [code = COVID-19 VACCINE (3 - Pfizer series)] Future Scheduled 2023-02-19 [facility]ACCINE [facility] 07:49:13 [code = INFLUENZA VACCINE] Future Scheduled 2023-02-19 Pneumococcal Vaccine: [facility] Test 07:49:13 Pediatrics (0 to 5 Years) and At-Risk Patients (6 to 64 Years) (1 - PCV) [code = Pneumococcal Vaccine: Pediatrics (0 to 5 Years) and At-Risk Patients (6 to 64 Years) (1 - PCV)] Future Scheduled 2023-02-19 [facility] Test 07:49:13 (procedure) [code = 647800537] Future Scheduled 2023-02-19 Scre[facility] Test 07:49:13 malignant neoplasm of cervix (procedure) [code = 147639696] Future Scheduled 2023-02-19 COVID-19 VACCINE (3 - [facility] Test 07:49:13 Pfizer series) [code = COVID-19 VACCINE (3 - Pfizer series)] Future Scheduled 2023-02-19 [facility]ENZA VACCINE [facility] 07:49:13 [code = INFLUENZA VACCINE] Future Scheduled 2023-02-19 Pneumococcal Vaccine: [facility] Test 07:49:13 Pediatrics (0 to 5 Years) and At-Risk Patients (6 to 64 Years) (1 - PCV) [code = Pneumococcal Vaccine: Pediatrics (0 to 5 Years) and At-Risk Patients (6 to 64 Years) (1 - PCV)] Future Scheduled 2023-02-19 Hepatitis C screening [facility] Test 07:49:13 (procedure) [code = 235227876] Future Scheduled 2023-02-19 [facility] Test 07:49:13 malignant neoplasm of cervix (procedure) [code = 581361450] Future Scheduled 2023-02-19 COVID-19 VACCINE (3 - [facility] Test 07:49:13 Pfizer series) [code = COVID-19 VACCINE (3 - Pfizer series)] Future Scheduled 2023-02-19 INFLUENZA VACCINE [facility] Test 07:49:13 [code = INFLUENZA VACCINE] Future Scheduled 2023-02-19 Pneumococcal Vaccine: [facility] Test 07:49:13 Pediatrics (0 to 5 Years) and At-Risk Patients (6 to 64 Years) (1 - PCV) [code = Pneumococcal Vaccine: Pediatrics (0 to 5 Years) and At-Risk Patients (6 to 64 Years) (1 - PCV)] Future Scheduled 2023-02-19 Hepatitis C screening [facility] Test 07:49:13 (procedure) [code = 076991435] Future Scheduled 2023-02-19 [facility] Test 07:49:13 malignant neoplasm of cervix (procedure) [code = 728127478] Future Scheduled 2023-02-19 COVID-19 VACCINE (3 - [facility] Test 07:49:13 Pfizer series) [code = COVID-19 VACCINE (3 - Pfizer series)] Future Scheduled 2023-02-19 INFLUENZA VACCINE [email or web address] Test 07:49:13 [code = INFLUENZA VACCINE] Future Scheduled 2022-12-30 Pneumococcal Vaccine: [facility] Test 10:15:19 Pediatrics (0 to 5 Years) and At-Risk Patients (6 to 64 Years) (1 - PCV) [code = Pneumococcal Vaccine: Pediatrics (0 to 5 Years) and At-Risk Patients (6 to 64 Years) (1 - PCV)] Future Scheduled 2022-12-30 Hepatitis C screening [facility] Test 10:15:19 (procedure) [code = 096053189] Future Scheduled 2022-12-30 [facility] Test 10:15:19 malignant neoplasm of cervix (procedure) [code = 432152691] Future Scheduled 2022-12-30 COVID-19 VACCINE (3 - [facility] Test 10:15:19 Booster for Pfizer series) [code = COVID-19 VACCINE (3 - Booster for Pfizer series)] Future Scheduled 2022-12-30 INFLUENZA VACCINE [facility] Test 10:15:19 [code = INFLUENZA VACCINE] Future Scheduled 2022-12-30 Pneumococcal Vaccine: [facility] Test 10:15:19 Pediatrics (0 to 5 Years) and At-Risk Patients (6 to 64 Years) (1 - PCV) [code = Pneumococcal Vaccine: Pediatrics (0 to 5 Years) and At-Risk Patients (6 to 64 Years) (1 - PCV)] Future Scheduled 2022-12-30 Hepatitis C screening [facility] Test 10:15:19 (procedure) [code = 454633756] Future Scheduled 2022-12-30 [facility] Test 10:15:19 malignant neoplasm of cervix (procedure) [code = 717419385] Future Scheduled 2022-12-30 COVID-19 VACCINE (3 - [facility] Test 10:15:19 Booster for Pfizer series) [code = COVID-19 VACCINE (3 - Booster for Pfizer series)] Future Scheduled 2022-12-30 INFLUENZA VACCINE [facility] Test 10:15:19 [code = INFLUENZA VACCINE] Future Scheduled 2022-12-30 Pneumococcal Vaccine: [facility] Test 10:15:19 Pediatrics (0 to 5 Years) and At-Risk Patients (6 to 64 Years) (1 - PCV) [code = Pneumococcal Vaccine: Pediatrics (0 to 5 Years) and At-Risk Patients (6 to 64 Years) (1 - PCV)] Future Scheduled 2022-12-30 Hepatitis C screening [facility] Test 10:15:19 (procedure) [code = 796621520] Future Scheduled 2022-12-30 [facility] Test 10:15:19 malignant neoplasm of cervix (procedure) [code = 256205131] Future Scheduled 2022-12-30 COVID-19 VACCINE (3 - [facility] Test 10:15:19 Booster for Pfizer series) [code = COVID-19 VACCINE (3 - Booster for Pfizer series)] Future Scheduled 2022-12-30 [facility]ZA [facility]ACCINE [facility] 10:15:19 [code = INFLUENZA VACCINE] Future Scheduled 2022-08-02 Pneumococcal Vaccine: [facility] Test 11:23:36 Pediatrics (0 to 5 Years) and At-Risk Patients (6 to 64 Years) (1 - PCV) [code = Pneumococcal Vaccine: Pediatrics (0 to 5 Years) and At-Risk Patients (6 to 64 Years) (1 - PCV)] Future Scheduled 2022-08-02 Hepatitis C screening [facility] Test 11:23:36 (procedure) [code = 286985082] Future Scheduled 2022-08-02 [facility] Test 11:23:36 malignant neoplasm of cervix (procedure) [code = 903837383] Future Scheduled 2022-08-02 COVID-19 VACCINE (3 - [facility] Test 11:23:36 Booster for Pfizer series) [code = COVID-19 VACCINE (3 - Booster for Pfizer series)] Future Scheduled 2022-08-02 [facility]ZA VACCINE [facility] 11:23:36 [code = INFLUENZA VACCINE] Future Scheduled 2022-07-24 Pneumococcal Vaccine: [facility] Test 21:51:51 Pediatrics (0 to 5 Years) and At-Risk Patients (6 to 64 Years) (1 - PCV) [code = Pneumococcal Vaccine: Pediatrics (0 to 5 Years) and At-Risk Patients (6 to 64 Years) (1 - PCV)] Future Scheduled 2022-07-24 Hepatitis C screening [facility] Test 21:51:51 (procedure) [code = 086921198] Future Scheduled 2022-07-24 [facility] Test 21:51:51 malignant neoplasm of cervix (procedure) [code = 076909983] Future Scheduled 2022-07-24 COVID-19 VACCINE (3 - [facility] Test 21:51:51 Booster for Pfizer series) [code = COVID-19 VACCINE (3 - Booster for Pfizer series)] Future Scheduled 2022-07-24 INFLUENZA VACCINE [facility] Test 21:51:51 [code = INFLUENZA VACCINE] Future Scheduled 2022-07-15 Pneumococcal Vaccine: [facility] Test 15:03:03 Pediatrics (0 to 5 Years) and At-Risk Patients (6 to 64 Years) (1 - PCV) [code = Pneumococcal Vaccine: Pediatrics (0 to 5 Years) and At-Risk Patients (6 to 64 Years) (1 - PCV)] Future Scheduled 2022-07-15 Hepatitis C screening [facility] Test 15:03:03 (procedure) [code = 097450380] Future Scheduled 2022-07-15 [facility] Test 15:03:03 malignant neoplasm of cervix (procedure) [code = 762065104] Future Scheduled 2022-07-15 COVID-19 VACCINE (3 - [facility] Test 15:03:03 Booster for Pfizer series) [code = COVID-19 VACCINE (3 - Booster for Pfizer series)] Future Scheduled 2022-07-15 [facility]ZA [facility]ACCINE [facility] 15:03:03 [code = INFLUENZA VACCINE] Future Scheduled 2022 Pneumococcal Vaccine: [facility] Test 09:54:03 Pediatrics (0 to 5 Years) and At-Risk Patients (6 to 64 Years) (1 - PCV) [code = Pneumococcal Vaccine: Pediatrics (0 to 5 Years) and At-Risk Patients (6 to 64 Years) (1 - PCV)] Future Scheduled 2022 Hepatitis C screening [facility] Test 09:54:03 (procedure) [code = 389353810] Future Scheduled 2022 [facility] Test 09:54:03 malignant neoplasm of cervix (procedure) [code = 625401734] Future Scheduled 2022 COVID-19 VACCINE (3 - [facility] Test 09:54:03 Booster for Pfizer series) [code = COVID-19 VACCINE (3 - Booster for Pfizer series)] Future Scheduled 2022 INFLUENZA VACCINE [facility] Test 09:54:03 [code = INFLUENZA VACCINE] Encounters Start End Encounter Admission Attending Care Care Encounter Source Date/Time Date/Time Type Type Clinicians Facility Department ID 2021-07-06 Emergency [facility] [id number] [facility] [id number] [facility] [id number] [facility] [id number] [facility] 10:52:00 [id number] [facility] 2020-12-27 Inpatient [facility] MALISSA [id number] [facility] 20:29:00 65 [facility] 2020-12-26 Inpatient CLAUDETTE Bustosos, [facility] ENDO [id number] [facility] 10:00:00 Rik 01 [facility] 2020-12-22 Inpatient [facility] [id number] [facility] 23:08:15 49 [facility] are Medical [place] 2020-08-23 Inpatient [facility] MALISSA [id number] [facility] 09:10:00 26 [facility] 2020-08-05 Inpatient [facility] [id number] [facility] Out[facility] KRISTIN [facility] [id number] [facility] 10:04:01 LISHA 2023-08-16 2023-08-16 Outpatient MOOKIE TORRES [facility] [id number] Univers 12:00:00 12:00:00 MOOKIE HOUSTON [facility] 2023-07-23 2023-07-23 Outpatient Anton ESPINOZA [facility] [id number] Univers 13:00:00 13:00:00 SALUD [facility] 2023-07-20 2023-07-20 [facility] [id number] Univers 00:00:00 00:00:00 [facility] 350.1.13.10 ity rey [facility] 4.2.7.2.686 Zay as BLANCA?BLEA [phone] [address] MEDICAL OFFICE BUILDING 2023-07-16 2023-07-16 Outpatient MARINA WISDOM [facility] [id number] Univers 14:00:00 14:00:00 MARINA BERG [facility] 2023-07-09 2023-07-09 Outpatient MOOKIE TORRES [facility] [id number] Univers 10:00:00 10:00:00 MOOKIE HOUSTON [facility] 2023-07-05 2023-07-05 Emergency [facility] [id number] Univers 12:50:00 14:12:00 DONTA [facility] 2023-07-05 2023-07-05 Emergency [facility] [id number] Univers 12:50:00 14:12:00 Donta BRYANT 350.1.13.10 i ty of [place] 4.2.7.2.686 [place] [facility] [id number] [address] 2023-07-04 2023-07-[address] [facility] [id number] Univers 00:00:00 00:00:00 Secure Msg Unassigned, HEALTH 350.1.13.10 ity of [place] [facility] 4.2.7.2.686 Zay as BLANCA?BLEA [phone] [address] MEDICAL OFFICE [facility] 2023-07-02 2023-07-[address] [facility] [id number] Univers 00:00:00 00:00:00 [facility] 350.1.13.10 it y of [place] 4.2.7.2.686 Zay as BLANCA?BLEA [id number] [address] 2023-07-02 2023-07-[address] [facility] [id number] Univers 00:00:00 00:00:00 Assessment [facility] 350.1.13.10 ity of [place] 4.2.7.2.686 Zay as BLANCA?BLEA [id number] [address] 2023-07-01 2023-07-01 Outpatient R JOSE [facility] [id number] Univers 11:00:00 11:39:48 DEVANG calixto [facility] 2023-07-01 2023-07-[address] [facility] ..840.11 [id number] Univers 11:00:00 11:39:48 Care Unknown, [facility] HEALTH 350.1.13.10 ity of [place] 4.2.7.2.686 Zay as BLANCA?BLEA [id number] [address] OFFICE [facility] 2023-06-29 2023-06-29 Outpatient R JOSE [facility] [id number] Univers 13:20:00 14:35:47 DEVANG [facility] 2023-06-29 2023-06-[address] [facility] ..840.11 4 [id number] Univers 13:20:00 14:35:47 Care Unknown, [facility] 350.1.13.10 ity of [facility] 4.2.7.2.686 Zay as BLANCA?BLEA [id number] [facility] [address] MEDICAL OFFICE BUILDING 2023-06-29 2023-06-29 Outpatient SALENA Strickland [id number] [facility] 12:00:00 12:00:00 Navarro 57 [facility] 2023-06-10 2023-06-10 Outpatient R MARINA BERG [facility] [id number] Univers 10:40:00 11:18:23 MARINA BERG [facility] 2023-06-10 2023-06-10 Office [facility] 1.2.840.114 [id number] Univers 10:40:00 11:18:23 Visit [facility] 350.1.13.10 ity of [place] 4.2.7.2.686 Zay as BLANCA?BLEA [id number] [facility] [facility] OFFICE [facility] 2023-06-10 2023-06-[address] [facility] 1.2.840.114 [id number] Univers 00:00:00 00:00:00 Outreach iMndy GUERRERO 350.1.13.10 ity of [place]2.7.2.686 [place] [id number] [address] 2023-06-10 2023-06-10 Patient Doctor NAVARRO [id number] [id number] Univers 00:00:00 00:00:00 Secure Msg Unassigned, ALEM 350.1.13.10 ity of [place] [facility] 4.2.7.2.686 Zay as [id number] [address] 2023-06-08 2023-06-08 Outpatient R GRACIELA [facility] [id number] Univers 11:30:00 11:30:00 LINDA calixto [facility] 2023-05-27 2023-05-27 Telephone [facility] [id number] Univers 00:00:00 00:00:00 Amrit GUERRERO 350.1.13.10 ity of [facility] 4.2.7.2.686 [place] [id number] [address] 2023-05-25 2023-05-[address] [id number] Univers 00:00:00 00:00:00 Amrit GUERRERO 350.1.13.10 ity of [facility] 4.2.7.2.686 [place] [id number] [address] 2023-05-24 2023-05-24 Telephone [facility] [id number] Univers 00:00:00 00:00:00 Amrit GUERRERO 350.1.13.10 ity of [facility] 4.2.7.2.686 [place] [id number] [address] 2023-05-19 2023-05-19 Telephone Graciela [facility] 1.2.840.114 [id number] Univers 00:00:00 00:00:00 Linda GANDARA 350.1.13.10 it y of [place] [id number] [address] 2023-03-02 2023-03-[address] [facility] 1.2.840.114 [id number] Univers 12:00:00 12:20:00 Care Unknown, Attending HEALTH 350.1.13.10 ity of [place] 4.2.7.2.686 Zay as BLANCA?BLEA [id number] [address] MEDICAL OFFICE [facility] 2023-03-02 2023-03-02 Outpatient R LUIS [facility] [id number] Univers 12:00:00 12:00:00 TALHA itmisty of [facility] 2023-03-02 2023-03-[address] [facility] 1.2.840.114 [id number] Univers 00:00:00 00:00:00 (Out) Talha [facility] 350.1.13.10 it y of [facility] 4.2.7.2.686 Zay as BLANCA?BLEA [id number] Ne denilson [address] MEDICAL OFFICE BUILDING 2023-01-21 2023-01-21 Emergency X [facility] [id number] Univers 13:46:00 18:49:00 EVANGELINA calixto [facility] 2023-01-21 2023-01-21 Emergency [facility] [id number] Univers 13:46:00 18:49:00 [facility] 350.1.13.10 it y [facility] 4.2.7.2.686 [facility] [id number] [address] ([facility]) 2023-01-21 2023-01-21 Outpatient R KRISTY [facility] [id number] Univers 13:30:00 13:30:00 SMITHA misty [facility] 2023-01-15 2023-01-15 Emergency X [facility] ERT [id number] Univers 08:50:00 13:10:00 LUIZA [facility] 2023-01-15 2023-01-15 Emergency [facility] [id number] Univers 08:50:00 13:10:00 Luiza Evelin GARNERJUAREZ 350.1.13.10 i ty of [facility] 4.2.7.2.686 [facility] [id number] [address] 2023-01-15 2023-01-15 Outpatient R KENZIE BADILLO [facility] [id number] Univers 09:00:00 09:00:00 [facility] 2023-01-15 2023-01-15 Emergency X [facility] ERT [id number] Univers 05:24:00 06:28:00 IZA [facility] 2023-01-15 2023-01-15 [facility] 1.2.527.047 [id number] Univers 05:24:00 06:28:00 Iza GUERRERO 350.1.13.10 ity of [facility] 4.2.7.2.686 [facility] [phone] [address] 2023-01-12 2023-01-12 Outpatient R FELISHA [facility] [id number] Univers 10:30:00 10:30:00 ИВАН ity of [facility] 2023-01-08 2023-01-08 Outpatient R FRANCESCA [facility] [id number] Univers 08:00:00 08:00:00 SENDIL ity of [facility] 2023-01-07 2023-01-07 Orders Doctor NAVARRO 1.2.840.114 [id number] Univers 00:00:00 00:00:00 Only Unassigned, ALEM 350.1.13.10 ity of [place] [facility] 4.2.7.2.686 Zay as [phone] [facility] [address] 2023-01-04 2023-01-04 Orders Doctor NAVARRO 1.2.840.114 [id number] Univers 00:00:00 00:00:00 Only Unassigned, ALEM 350.1.13.10 ity of [place] [facility] 4.2.7.2.686 Zay as [phone] [address] 2023-01-04 2023-01-[address] [facility] 1.2.311.808 2580 03002 Univers 00:00:00 00:00:00 [facility] 350.1.13.10 it y of [place] CANCER 4.2.7.2.[address] [facility] - [phone] Med ical [facility] [address] 2023-01-01 2023-01-01 [facility] 1.2.840.11 4 [id number] Univers 00:00:00 00:00:00 Jorge GANDARA 350.1.13.10 it y of WOMEN'S 4.2.7.2.686 [facility] [phone] [facility] [address] 2022-12-31 2022-12-31 Emergency X Jasmin GREGORIO [facility] ERT [id number] Univers 00:13:00 01:07:00 ity of [facility] 2022-12-31 2022-12-[address] [facility] 1.2.840.114 10 [id number] Univers 00:13:00 01:07:00 Filomena GUERRERO 350.1.13.10 i ty of [place].7.2.[place] [phone] [facility] [address] 2022-12-31 2022-12-31 Telephone [facility] 1.2.167.758 0227 [id number] Univers 00:00:00 00:00:00 Sendgerman GUERRERO 350.1.13.10 ity of [place].2.7.2.686 [place] [phone] Ne dical NAL [address] [facility] 2022-12-31 2022-12-31 Patient Doctor NAVARRO 1.2.840.114 [id number] 006 Univers 00:00:00 00:00:00 Secure Msg Unassigned, ALEM 350.1.13.10 ity of [place] [facility] 4.2.7.2.686 Zay as [phone] [facility] [address] 2022-12-30 2022-12-30 Hospital [facility] 1.2.840.114 [id number] Univers 10:38:24 23:59:00 Encounter Amrit GUERRERO 350.1.13.10 ity of [place] 4.2.7.2.686 [facility] [phone] [facility] [address] 2022-12-30 2022-12-30 [facility] [id number] Univers 10:38:24 23:59:00 SENDIL durga of [facility] 2022-12-30 2022-12-30 Emergency [facility] ERT [id number] Univers 10:21:00 10:33:00 AWILDA ity [facility] 2022-12-30 2022-12-30 Emergency [facility] 1.2.840.114 10 [id number] Univers 10:21:00 10:33:00 Awilda GUERRERO 350.1.13.10 ity of [place].2.7.2.[place] [phone] [place] 6[address] [place] 2022-12-30 2022-12-[address] [facility] NEEL 1.2.840.11 4 [id number] Univers 00:00:00 00:00:00 Jorge GANDARA 350.1.13.10 it y of [place].2.[place] [facility] [phone] [facility] [address] 2022-12-29 2022-12-29 Outpatient R PRATEEK JORGE [facility] B [id number] Univers 13:30:00 13:30:00 TRIJORGE RUTLEDGE ity of [facility] 2022-12-29 2022-12-29 Orders Doctor NAVARRO 1.2.840.114 [id number] Univers 00:00:00 00:00:00 Only Unassigned, ALEM 350.1.13.10 ity of [place] [facility] 4.2.7.2.686 Zay as [phone] [facility] [address] 2022-12-29 2022-12-29 Telephone [facility] 1.2.213.567 6068 [id number] Univers 00:00:00 00:00:00 Иван HEALTH 350.1.13.10 it y of [place] CANCER 4.2.7.2.686 [facility] SHERIDAN - [phone] [facility] [address] 2022-12-28 2022-12-28 Telephone [facility] 1.2.965.535 0727 04173 Univers 00:00:00 00:00:00 Иван HEALTH 350.1.13.10 it y of [place] CANCER 4.2.7.2.686 [facility] - [phone] [facility] [address] 2022-12-25 2022-12-[address] [facility] 1.2.840.114 [id number] Univers 00:00:00 00:00:00 Secure [facility]ALTH 350.1.13.10 ity of [place] 4.2.7.2.686 Zay as BLANCA?BLEA [phone] Ne jackie[address] MEDICAL OFFICE BUILDING 2022-12-23 2022-12-23 Telephone Prateek [facility] 1.2.840.11 4 [id number] Univers 00:00:00 00:00:00 Jorge GANDARA 350.1.13.10 it y of PEDIATRIC 4.2.7.2.686 [place] [facility] [phone] [facility] [address] 2022-12-23 2022-12-[address] [facility] 1.2.840.114 [id number] Univers 00:00:00 00:00:00 Secure Msg Norberto GUERRERO 350.1.13.10 ity of [place].2.[place] [phone] [facility] 134 [facility] 2022-12-22 2022-12-22 [facility], Ang - Db [facility] 1.2.840.1 14 [id number] Univers 09:30:00 09:45:00 Visit Jorge Chandra [facility] 350.1.13.1 0 ity of [place] 4.2.7.2.686 Zay as BLANCA?BLEA [phone] [facility] 353 [facility] OFFICE [facility] 2022-12-22 2022-12-22 Office Prateek [facility] 1.2.840.114 [id number] Univers 08:00:00 08:53:38 Visit Jorge GANDARA 350.1.13.10 it y of [place].2.[place] [facility] [phone] [address] 2022-12-22 2022-12-22 Outpatient R JORGE CHANDRA [facility] B [id number] Univers 08:00:00 08:53:38 JORGE CHANDRA ity of [facility] 2022-12-22 2022-12-22 Patient Doctor NAVARRO 1.2.840.114 [id number] Univers 00:00:00 00:00:00 Secure Msg Unassigned, ALEM 350.1.13.10 ity of [place] [facility] 4.2.7.2.686 Zay as [phone] [facility] [address] 2022-12-21 2022-12-21 Orders Doctor NAVARRO 1.2.840.114 [id number] Univers 00:00:00 00:00:00 Only Unassigned, ALEM 350.1.13.10 ity of [place] [facility] 4.2.7.2.686 Zay as [phone] [facility] [address] 2022-12-19 2022-12-19 Emergency [facility] [id number] Univers 02:32:00 05:47:00 WAKILI ity of [facility] 2022-12-19 2022-12-[address] [facility] 1.2.106.436 2355 [id number] Univers 02:32:00 05:47:00 Iza GARNERTON 350.1.13.10 ity of [facility] 4.2.7.2.686 [place] [facility] [phone] [facility] [address] 2022-12-18 2022-12-18 Outpatient R KENZIE BADILLO [facility] 578 [id number] Univers 09:45:00 09:45:00 ity of [facility] 2022-12-17 2022-12-17 Telephone Aby [facility] 1.2.840.114 [id number] Univers 00:00:00 00:00:00 E HEALTH 350.1.13.10 it y of [place] 4.2.7.2.686 [place] [facility] [phone] [facility] [address] 2022-12-15 2022-12-15 Outpatient R FRANCESCA [facility] [id number] Univers 11:00:00 11:30:30 SENDIL ity [facility] 2022-12-15 2022-12-15 Office [facility] 1.2.840.114 [id number] Univers 11:00:00 11:30:30 Visit Sendgerman GUERRERO 350.1.13.10 ity of [facility] 4.2.7.2.[place] [phone] Ne dic[address] 2022-12-15 2022-12-15 Telephone [facility] 1.2.289.166 7453 05909 Univers 00:00:00 00:00:00 Sendil Ismael GUERRERO 350.1.13.10 ity of [facility] 4.2.7.2.[place] [phone] Ne dicin NAL [address] [place] [address] 2022-12-14 2022-12-14 Emergency [facility] ERT [id number] Univers 03:03:00 07:05:00 IZA ity of [facility] 2022-12-14 2022-12-[address] [facility] 1.2.212.201 9640 [id number] Univers 03:03:00 07:05:00 Iza Waters YOLANDA 350.1.13.10 ity of [facility] 4.2.7.2.686 [place] [phone] [facility] [address] 2022-11-03 2022-11-03 Emergency X VASUT, [facility] ERT [id number] Univers 08:15:00 12:05:00 CLAUDIA ity [facility] 2022-11-03 2022-11-03 Emergency [facility] 1.2.448.749 [id number] [id number] Univers 08:15:00 12:05:00 Claudia GUERRERO 350.1.13.10 i ty of [place] 4.2.7.2.686 [facility] [phone] [facility] [address] 2022-10-28 2022-10-28 Outpatient R GRACIELA [facility] [id number] Univers 15:00:00 15:28:11 LINDA durga [facility] 2022-10-28 2022-10-28 Office [facility] 1.2.840.114 [id number] Univers 15:00:00 15:28:11 Visit Linda [facility] 350.1.13.10 it y of [place] 4.2.7.2.686 Zay as BLANCA?BLEA [phone] Ne denilson [address] MEDICAL OFFICE BUILDING 2022-10-28 2022-10-28 Orders Doctor NAVARRO 1.2.840.114 [id number] Univers 00:00:00 00:00:00 Only Unassigned, ALEM 350.1.13.10 ity of [place] [facility] 4.2.7.2.686 Zay as [phone] [facility] [address] 2022-10-28 2022-10-[address] [facility] 1.2.840.114 [id number] [id number] Univers 00:00:00 00:00:00 Linda HEALTH 350.1.13.10 it y of [place] 4.2.7.2.686 Zay as BLANCA?BLEA [phone] [facility] ADRIA [address] [place] [address] OFFICE [facility] 2022-10-28 2022-10-[address] [facility] 1.2.840.114 [id number] Univers 00:00:00 00:00:00 Outreach Florence Wei [facility] 350.1.13.10 i ty of [facility] 4.2.7.2.686 Zay as BLANCA?BLEA [phone] [facility] [address] OFFICE [facility] 2022-10-28 2022-10-28 Telephone [facility] 1.2.967.023 0159 98078 Univers 00:00:00 00:00:00 Phylicia GUERRERO 350.1.13.10 i ty of [place].2.[place].2.[place] [phone] [address] 2022-10-13 2022-10-[address] [facility] ERT [id number] Univers 01:56:00 02:55:00 IZA ity [facility] 2022-10-13 2022-10-13 [facility] 1.2.775.486 0632 [id number] Univers 01:56:00 02:55:00 Iza GUERRERO 350.1.13.10 ity of [facility] 4.2.7.2.686 [facility] [phone] [address] 2022-10-09 2022-10-09 Emergency X [facility] ERT [id number] Univers 18:46:00 19:00:00 LUIZA ity [facility] 2022-10-09 2022-10-09 Emergency [facility] 1.2.388.673 8395 [id number] Univers 18:46:00 19:00:00 Luiza GUERRERO 350.1.13.10 i ty of [facility] 4.2.7.2.686 [facility] [phone] [address] 2022-10-09 2022-10-09 Orders Doctor HALEY 1.2.840.114 [id number] Univers 00:00:00 00:00:00 Only Unassigned, ALEM 350.1.13.10 ity of [place] [facility] 4.2.7.2.686 Zay as [phone] [place] [address] [address] 2022-10-06 2022-10-06 [facility], 1.2.840.1 [id number] 087 [id number] Methodi 17:35:51 23:59:00 Encounter Jorge Luis 10660.1.1 997 s t 3.430.2.7 Hospit a .3.682676 l .8 2022-10-06 2022-10-06 [facility], 1.2.840.1 [id number] 925 8260075 Methodi 17:35:51 23:59:00 Encounter Jorge Luis 25301.1.1 997 s t 3.430.2.7 Hospit a .3.696120 l .8 2022-10-06 2022-10-06 [facility], 1.2.840.1 [id number] 699 [id number] Methodi 17:35:36 23:59:00 Encounter Jorge Luis 66965.1.1 999 s t 3.430.2.7 Hospit a .3.901959 l .8 2022-10-06 2022-10-06 [facility], 1.2.840.1 [id number] 153 [id number] Methodi 17:35:36 23:59:00 Encounter Jorge Luis 41024.1.1 999 s t 3.430.2.7 Hospit a .3.980262 l .8 2022-10-06 2022-10-06 Travel 1.2.840.1 1.2.964.068 8498 065829 Methodi 00:00:00 00:00:[address] 3.430.2.7 0.2.7.3.698 Ho spita .3.908186 084.8 l .8 2022-10-06 2022-10-06 Travel 1.2.840.1 1.2.942.165 0469 635424 Methodi 00:00:00 00:00:[address] 3.430.2.7 0.2.7.3.698 Ho spita .3.812257 084.8 l .8 2022-09-09 2022-09-[address] [facility] ERT [id number] Univers 18:15:00 19:35:00 NATY calixto [facility] 2022-09-09 2022-09-09 Emergency [facility] 1.2.840.114 995 [id number] Univers 18:15:00 19:35:00 Naty GUERRERO 350.1.13.10 i ty of [place] 4.2.7.2.686 [facility] [phone] [address] 2022-08-18 2022-08-18 Emergency X [facility] ERT [id number] Univers 16:38:00 17:44:00 BEBO calixto [facility] 2022-08-18 2022-08-18 [facility] 1.2.018.784 6021 1453 Univers 16:38:00 17:44:00 Bebo GUERRERO 350.1.13.10 i ty of [place] 4.2.7.2.686 [facility] [id number] [address] 2022-08-07 2022-08-08 Inpatient EL Pfost, [facility] MEDI.01 [id number] [facility] 14:50:00 12:01:00 Gianna [facility] 2022-08-03 2022-08-03 Emergency EM Ernesto, [facility] AERS [id number] 58 [facility] 14:26:00 16:02:00 Roro 86 [facility] 2022-07-23 2022-07-23 Hospital Sathya, 1.2.840.1 [id number] 231 [id number] Methodi 10:30:00 10:30:00 Encounter Jorge Luis 54781.1.1 209 s t 3.430.2.7 Hospit a .3.842095 l .8 2022-07-23 2022-07-23 Telephone Gabi, 1.2.840.1 [id number] 2100 216222 Methodi 00:00:00 00:00:[address] 3.430.2.7 Hospit a .3.076270 l .8 2022-07-07 2022-07-07 Outpatient LONA DILL LONA [id number] 936 Lona 10:45:00 10:45:00 ELBERT Bowdenyefri soirano 2022-07-06 2022-07-06 Travel 1.2.840.1 1.2.668.142 5034 290030 Methodi 00:00:00 00:00:[address] 3.430.2.7 0.2.7.3.698 Ho spita .3.260657 084.8 l .8 2022-06-15 2022-06-16 [facility], 1.2.840.1 [id number] 2100 062086 Methodi 14:15:00 11:08:59 Visit Jorge Luis 75696.1.[address] 3.430.2.7 Hospit a .3.999505 l .8 2022-06-15 2022-06-15 [facility], 1.2.840.1 [id number] 001 [id number] Methodi 14:15:15 23:59:00 Encounter Jorge Luis 79394.1.1 971 s t 3.430.2.7 Hospit a .3.752673 l .8 2022-06-15 2022-06-15 [facility], 1.2.840.1 [id number] 440 [id number] Methodi 14:15:13 23:59:00 Encounter Jorge Luis 88539.1.1 963 s t 3.430.2.7 Hospit a .3.769639 l .8 2022-06-15 2022-06-15 [facility], 1.2.840.1 [id number] 666 [id number] Methodi 14:13:36 14:14:00 Encounter Jorge Luis 04619.1.1 680 s t 3.430.2.7 Hospit a .3.662621 l .8 2022-06-15 2022-06-15 [facility], 1.2.840.1 [id number] 753 [id number] Methodi 14:12:01 14:12:01 Encounter Jorge Luis 38265.1.1 418 s t 3.430.2.7 Hospit a .3.637898 l .8 2022-06-15 2022-06-15 [facility], 1.2.840.1 [id number] 2099 738552 Methodi 00:00:00 00:00:00 Only Jorge Luis 08771.1.[address] 3.430.2.7 Hospit a .3.791965 l .8 2022-06-15 2022-06-15 Travel 1.2.840.1 1.2.567.057 5107 397714 Methodi 00:00:00 00:00:[address] 3.430.2.7 0.2.7.3.698 Ho spita .3.123543 084.8 l .8 2022-06-11 2022-06-11 Travel 1.2.840.1 1.2.114.353 7640 904520 Methodi 00:00:00 00:00:[address] 3.430.2.7 0.2.7.3.698 Ho spita .3.684217 084.8 l .8 2022-02-17 2022-02-17 Petr Borges 1.2.840.1 [id number] 2099 129738 Methodi 00:00:00 00:00:[address] Andrea 3.430.2.7 Hospit a .3.717043 l .8 2022-01-20 2022-01-20 Amanda Borges 1.2.840.1 [id number] 2099 081720 Methodi 13:00:00 13:57:49 Visit [place] 20532.1.[address] Andrea 3.430.2.7 Hospit a .3.776559 l .8 2022-01-20 2022-01-20 Telephone [facility] 1.2.840.114 9 [id number] Univers 00:00:00 00:00:00 Michi MIJARESPEC 350.1.13.10 ity of [place] 4.2.7.2.[address] [facility] 197.2328173 [facility] [address] [facility] 2022-01-20 2022-01-20 Travel 1.2.840.1 1.2.896.537 3680 006350 Methodi 00:00:00 00:00:[address] 3.430.2.7 0.2.7.3.698 Ho spita .3.734321 084.8 l .8 2022-01-19 2022-01-19 Telephone [facility] 1.2.840.114 93 [id number] Univers 00:00:00 00:00:[address] Jessi MIJARESPEC 350.1.13.10 ity of Andrea SÁNCHEZ 4.2.7.2.[address] [facility] [phone] [facility] [address] [facility] 2021-11-21 2021-11-21 Orders Doctor NAVARRO 1.2.840.114 [id number] Univers 00:00:00 00:00:00 Only Unassigned, ALEM 350.1.13.10 ity of [place] [facility] 4.2.7.2.686 [facility] [phone] [facility] [address] 2021-11-17 2021-11-18 Emergency X [facility] ERT [id number] Univers 19:45:00 00:44:00 DONTA anthonyy of [facility] 2021-11-17 2021-11-18 Emergency [facility] 1.2.503.423 9239 8574 Univers 19:45:00 00:44:00 Donta GUERRERO 350.1.13.10 i ty of [place] 4.2.7.2.686 [facility] [id number] [facility] [address] 2021-11-16 2021-11-[address] [facility] ERT [id number] Univers 20:28:00 21:58:00 IZA [facility] 2021-11-16 2021-11-[address] [facility] 1.2.702.421 4174 5340 Univers 20:28:00 21:58:00 Iza GARNERJUAREZ 350.1.13.10 ity [facility] 4.2.7.2.686 [facility] [id number] [address] 2021-10-02 2021-10-02 Emergency EM Nwandreae, HCACL MALISSA [id number] [facility] 16:59:00 20:32:00 Hung 245291 Cl [facility] 2021-10-02 2021-10-02 Emergency EM EDDOC, [facility] [id number] 76 [facility] 16:59:00 20:32:00 GENERIC 76 [facility] 2021-10-01 2021-10-01 Refill Vivian, 1.2.840.1 [id number] 2100 [id number] Methodi 00:00:00 00:00:[address] Andrea 3.430.2.7 Hospit a .3.442916 l .8 2021-09-30 2021-09-30 Emergency X [facility] ERT [id number] 4304 Univers 13:31:00 16:34:00 AWILDA misty [facility] 2021-09-30 2021-09-30 Emergency [facility] 1.2.840.114 90 579219 Univers 13:31:00 16:34:00 Awilda GUERRERO 350.1.13.10 ity [facility] 4.2.7.2.686 [facility] [id number] [address] 2021-08-14 2021-08-14 Refill Nenita, 1.2.840.1 [id number] 21 [id number] Methodi 00:00:00 00:00:[address] 3.430.2.7 Hospit a .3.037295 l .8 2021-08-12 2021-08-12 Refill Nenita, 1.2.840.1 [id number] 21 [id number] Methodi 00:00:00 00:00:[address] 3.430.2.7 Hospit a .3.111471 l .8 2021-07-23 2021-07-23 Emergency X [facility] ERT [id number] 08 Univers 16:14:00 17:06:00 ity of [facility] 2021-07-23 2021-07-23 Emergency [facility] 1.2.369.274 6412 5383 Univers 16:14:00 17:06:00 [place] 350.1.13.10 i ty [facility] 4.2.7.2.686 [facility] [id number] [place] [address] [address] 2021-07-23 2021-07-23 Emergency EM Sanket, HCACL HCACL [id number] [facility] 13:58:00 14:24:00 Burak 69 [facility] 2021-07-23 2021-07-23 Emergency EM Sanket, HCACL AERS [id number] [facility] 13:58:00 14:24:00 Burak [id number] [facility] 2021-07-10 2021-07-10 Telemedici Vivian, 1.2.840.1 [id number] 2 [id number] Methodi 08:30:00 09:02:51 ne Jessi 46777.1.[address] Andrea 3.430.2.7 Hospit a .3.898139 l .8 2021-07-09 2021-07-09 Travel 1.2.840.1 1.2.546.887 5765 219271 Methodi 00:00:00 00:00:[address] 3.430.2.7 0.2.7.3.698 Ho spita .3.272667 084.8 l .8 2021-06-13 2021-06-13 Outpatient [facility] [id number] 28697 [place] 00:00:00 00:00:[address] 2021-04-17 2021-04-17 Emergency E LOLITA [facility] 7515 16:40:00 19:42:00 [facility] 2021-03-30 2021-03-30 Emergency E DINORAH [facility] MED 7514 [address] 00:46:00 06:26:00 SABHA 2021-01-15 2021-01-15 Outpatient SALENA Escobar [id number] [facility] 08:00:00 08:00:00 Rik [id number] [facility] 2021-01-09 2021-01-09 Emergency E LOLITA [facility]ASSERMAN [facility] 7513 12:29:00 16:41:00 Sasha nagel [facility] 2020-12-26 2020-12-26 Emergency [facility] [id number] 09 [place] 00:00:00 00:00:[address] 2020-12-21 2020-12-[address] [facility] 1.2.992.454 [id number] [facility] 22:42:00 02:02:00 Iza Guerrero 350.1.13.10 ity [facility] 4.2.7.2.686 [facility] [phone] [facility] 084 [address] 2020-12-21 2020-12-[address] [facility] 1.2.038.922 [id number] 22:42:00 02:02:00 Jasoncesar Guerrero 350.1.13.10 [place] 4.2.7.2.686 [place] [id number] [facility] 2020-12-21 2020-12-21 Orders Doctor NAVARRO 1.2.840.114 [id number] [facility] 00:00:00 00:00:00 Only Unassigned, ALEM 350.1.13.10 ity of [place] [facility] 4.2.7.2.686 [facility] [phone] [facility] 009 [address] 2020-12-21 2020-12-21 Orders Doctor NAVARRO 1.2.840.114 [id number] 30 00:00:00 00:00:00 Only Unassigned, ALEM 350.1.13.10 [place] [facility] 4.2.7.2.686 [id number] [id number] 2020-08-15 2020-08-19 Inpatient [facility] MALISSA [id number] [facility] 14:57:00 06:49:15 39 [facility] 2020-08-15 2020-08-15 Emergency Lazarus, [facility] 1.2.993.608 [id number] [facility] 03:26:00 06:17:00 Donta Guerrero 350.1.13.10 i ty of [place] 4.2.7.2.686 [facility] [phone] [address] 2020-08-15 2020-08-15 Emergency X LAZARUS, [facility] ERT [id number] Univers 03:26:00 06:17:00 DONTA ity of [facility] 2020-08-15 2020-08-15 [facility] 1.2.076.764 [id number] 03:26:00 06:17:00 Donta Guerrero 350.1.13.10 [place] 4.2.7.2.686 [place] [id number] [facility] 2020-04-13 2020-04-13 [facility] 1.2.840.114 [id number] [facility] 19:38:00 23:40:00 Awilda Guerrero 350.1.13.10 ity of [place] 4.2.7.2.686 [facility] [phone] [address] 2020-04-13 2020-04-13 [facility] 1.2.840.114 [id number] 19:38:00 23:40:00 Awilda Guerrero 350.1.13.10 [place] 4.2.7.2.6 [place] [id number] [facility] 2020-04-13 2020-04-13 Orders Doctor HALEY 1.2.840.114 [id number] Univers 00:00:00 00:00:00 Only Unassigned, ALEM 350.1.13.10 ity of [place] [facility] 4.2.7.2.686 [facility] [id number] [address] 2020-04-13 2020-04-13 Orders Doctor HALEY 1.2.840.114 [id number] 00:00:00 00:00:00 Only Unassigned, ALEM 350.1.13.10 [place] [facility] 4.2.7.2.686 [id number] 009 2020-04-10 2020-04-10 Emergency [place], [facility] 1.2.814.992 [id number] [facility] 15:39:00 19:05:00 Bebo Guerrero 350.1.13.10 i ty [place] 4.2.7.2.[place] [id number] [facility] 084 [place] 2020-04-10 2020-04-10 Emergency [place] 1.2.700.286 [id number] 15:39:00 19:05:00 Bebo Guerrero 350.1.13.10 [place] 4.2.7.2.686 [place] [id number] [facility] 2020-04-10 2020-04-10 Orders Doctor NAVARRO 1.2.840.114 [id number] Univers 00:00:00 00:00:00 Only Unassigned, ALEM 350.1.13.10 ity of [place] [facility] 4.2.7.2.686 Zay [id number] [facility] 009 [place] 2020-04-10 2020-04-10 Orders Doctor NAVARRO 1.2.840.114 [id number] 00:00:00 00:00:00 Only Unassigned, ALEM 350.1.13.10 [place] [facility] 4.2.7.2.686 [id number] 009 2020-03-11 2020-03-11 Dusty [facility] Obstetrics [id number] [place] 10:00:00 10:00:00 t; Gayatri HUSAIN and Quynh FOSTER, Gynecology rubén HUSAIN M.D. [facility] 2020-02-28 2020-02-28 [facility] [id number] [place] 08:30:00 08:30:00 t; Gayatri HUSAIN ans ASHA, M.D. 2020-02-23 2020-02-23 [facility] [id number] [place] 11:00:00 11:00:00 t; Gayatri HUSAIN ans ASHA, M.D. 2020-02-16 2020-02-16 Dusty MARTE [facility] Obstetrics [id number] [place] 14:15:00 14:15:00 t; JOSEFINA and Jennifer MARTE M.D. Gynecology ans Dinah ROCHA M.D. Clinic 2020-02-15 2020-02-15 Emergency E AMELIE, MHSE MHSE 7510 MH 20:06:00 21:19:[address] [facility] 2020-02-14 2020-02-14 Appointmen MARIBEL MATAMOROS Obstetrics [id number] [place] 09:00:00 09:00:00 t; SAMIR MATAMOROS, and Quynh DAWSON M.D. Gynecology rubén [place] [facility] 2020-01-31 2020-01-31 Appointmen MARIBEL AGRAWAL Obstetrics [id number] [place] 08:30:00 08:30:00 t; JUNE, and Jennifer AGARWAL D.O. Gynecology ans JUNE [facility] 2019-12-20 2019-12-20 Appointmen MARIBEL GOSS Orthopedics [id number] [place] 09:30:00 09:30:00 t; JOSE ROBERTO [facility] Quynh GOSS M.D. Sports Jewel Lazo M.D. [facility] 2019-12-20 2019-12-20 Outpatient Raju_P [facility] [id number] 020 [place] 04:51:00 04:51:00 0415 [facility] 2019-12-18 2019-12-18 Emergency E TABBY, MHSE MHSE 7500 MH 20:54:00 21:40:00 [facility] 2019-10-11 2019-10-12 Emergency [facility] [id number] Univers 21:52:36 00:17:00 DONTA calixto [facility] 2019-10-11 2019-10-12 [facility] 1.2.325.750 [id number] Univers 21:52:36 00:17:00 Donta Guerrero 350.1.13.10 la nena Morillo 4.2.7.2.686 [facility] [phone] [address] 2019-10-11 2019-10-12 Emergency Lazarus, [facility] 1.2.706.108 [id number] 21:52:36 00:17:00 Donta Guerrero 350.1.13.10 [place] 4.2.7.2.686 [place] [id number] 084 2019-10-11 2019-10-11 Orders Doctor NAVARRO 1.2.840.114 [id number] Univers 00:00:00 00:00:00 Only Unassigned, ALEM 350.1.13.10 ity of [facility] 4.2.7.2.686 Zay as [phone] [address] 2019-10-11 2019-10-11 Orders Doctor NAVARRO 1.2.840.114 [id number] 00:00:00 00:00:00 Only Unassigned, ALEM 350.1.13.10 [place] [address]686 [id number] 009 2019-06-28 2019-06-28 Appointmen [facility] Obstetrics [id number] [place] 16:00:00 16:00:00 t; Gayatri CAVANAUGH [facility] Din[facility] Med[facility] M[facility] 2019-05-12 2019-05-12 Nurse Visit, Carrigracie Nurse [facility] 1.2 .840.114 [id number] [facility] 10:44:42 12:05:57 Visit Perri Pérez GUM COOK 350.1.13.10 ity of [facility] 4.2.7.2.686 Zay as MATERNAL [phone] Med ical & CHILD [address] [place] [address] 2019-05-12 2019-05-12 Nurse Visit, [facility] 1.2.840.114 [id number] 10:44:42 12:05:57 Visit Bautista GUM COOK 350.1.13.10 Nurse [facility] 4.2.7.2.686 MATERNAL [phone] & CHILD [address] [place] [address] 2019-05-10 2019-05-10 Telephone GEORGIE Pérez 1.2.840.114 [id number] [facility] 00:00:00 00:00:00 Perri Olivier GUM COOK 350.1.13.10 it y of [facility] 4.2.7.2.686 Zay as MATERNAL [phone] Med ical & CHILD [address] [place] [address] 2019-05-10 2019-05-10 Telephone GEORGIE Pérez 1.2.840.114 [id number] 00:00:00 00:00:00 Perri Charline GUM COOK 350.1.13.10 REGIONAL 4.2.7.2.686 MATERNAL [phone] & CHILD [facility] 2019-04-03 2019-04-03 Patient Bogdan UNIVERSIT 1.2.840.114 [id number] 00:00:00 00:00:00 Secure Msg Ivet Y HEALTH 350.1.13.10 [facility] 4.2.7.2.686 [id number] 113 2019-04-03 2019-04-03 Patient Bogdan, UNIVERSIT 1.2.840.114 [id number] Univers 00:00:00 00:00:00 Secure Msg Ivet Y HEALTH 350.1.13.10 ity of [place] [id number] [address] 2019-03-07 2019-03-07 Patient Doctor NAVARRO [place].2.840.114 [id number] 00:00:00 00:00:00 Secure Msg Unassigned, ALEM 350.1.13.10 [facility] 4.2.7.2.686 [phone] 044 2019-03-07 2019-03-07 Patient Doctor NAVARRO [place].2.840.114 [id number] Univers 00:00:00 00:00:00 Secure Msg Unassigned, ALEM 350.1.13.10 [facility]y of [facility] 4.2.7.2.686 Zay as [id number] [address] 2019-02-27 2019-02-27 Patient Doctor NAVARRO 1.2.840.114 [id number] 00:00:00 00:00:00 Secure Msg Unassigned, ALEM 350.1.13.10 [facility] 4.2.7.2.686 [id number] 044 2019-02-27 2019-02-27 Patient Doctor NAVARRO [place].2.840.114 [id number] Univers 00:00:00 00:00:00 Secure Msg Unassigned, ALEM 350.1.13.10 ity of [facility] 4.2.7.2.686 Zay as [id number] [address] 2018-10-13 2018-10-13 Appointpeng [facility] [id number] [place] 14:30:00 14:30:00 t; Jennifer FINK i, M.D. ans JORDAN, M.D. 2018-09-07 2018-09-21 Outpatient [facility] [id number] 15:00:00 10:19:03 2018-09-07 2018-09-07 AppointMARIBEL Rae [facility]aler [id number] [place] 15:00:00 15:00:00 t; BONITA KRISHNA, [...] 34.6 g/dL 31.6-35.1 RDW-SD (test code = 13367-2) 39.3 fL 39.0-49.9 RDW-CV (test code = 788-0) 11.5 % 12.0-15.5 L PLT (test code = 777-3) 426 See_Comment H [Au tomated message] The system which ge nerated this result transmit uche reference range: 166 - 35 8 10*3/?L. The reference range was not used to interpret th is result as normal/abnormal . MPV (test code = 21286-1) 9.3 fL 9.5-12.9 L NRBC/100 WBC (test code = 0.0 See_Comment [ Automated message] The 6031945657) system which ge nerated this result transmit uche reference range: 0.0 - 10 .0 /100 WBCs. The reference r dagoberto was not used to interpr et this result as normal/abnor mal. NRBC x10^3 (test code = See_Comment [Au tomated message] The 0283154701) system which ge nerated this result transmit uche reference range: 10*3/?L. The reference range was not u sed to interpret this result as normal/abnormal . GRAN MAT (NEUT) % (test code 69.0 % = 770-8) IMM GRAN % (test code = 0.40 % 7084960218) LYMPH % (test code = 736-9) 25.4 % MONO % (test code = 5905-5) 4.6 % EOS % (test code = 713-8) 0.2 % BASO % (test code = 706-2) 0.4 % GRAN MAT x10^3(ANC) (test 6.90 10*3/uL 1.88-7.09 code = 8191869393) IMM GRAN x10^3 (test code = 0.04 10*3/uL 0.00-0.06 0038315046) LYMPH x10^3 (test code = 2.54 10*3/uL 1.32-3.29 731-0) MONO x10^3 (test code = 0.46 10*3/uL 0.33-0.92 742-7) EOS x10^3 (test code = 0.03-0.39 L 711-2) BASO x10^3 (test code = 0.04 10*3/uL 0.01-0.07 704-7) Lab Interpretation (test Abnormal code = 36261-9) [facility] [id number] 18:05:00 Test Item Value Reference Range Interpretation Comments POCT PREG (test code = 1605) Negative On board controls acceptable with Yes C Line (test code = 3574) POCT PREG LOT # (test code = 1180) [id number] POCT PREG TEST DATE (test 09-08-2024 code = 3576) Lab Interpretation (test code = Normal 45169-0) [facility] [id number] 20:27:33 Test Item Value Reference Range Interpretation Comments TROPONIN I (test code = <=0.034 3784769297) ANGI (test code = ANGI) Reference (Normal) [...] biotin. Lab Interpretation Normal (test code = 54587-4) [facility] Children[facility] Metabolic [id number] 20:18:51 Test Item Value Reference Range Interpretation Comments NA (test code = 132 mmol/L 135-145 L 9838073744) K (test code = 4.1 mmol/L 3.5-5.0 4080275245) CL (test code = 98 mmol/L 98-108 9546295915) CO2 TOTAL (test code = 26 mmol/L 23-31 2266184984) AGAP (test code = 8 2-16 7982583473) BUN (test code = 12 mg/dL 7-23 7176721471) GLUCOSE (test code = 79 mg/dL 70-110 3401962042) CREATININE (test code = 0.58 mg/dL 0.50-1.04 2628414616) TOTAL BILI (test code = 0.4 mg/dL 0.1-1.7 2582296472) CALCIUM (test code = 9.0 mg/dL 8.6-10.6 5680993835) T PROTEIN (test code = 7.4 g/dL 6.3-8.2 3571391639) ALBUMIN (test code = 4.5 g/dL 3.5-5.0 1276356257) ALK PHOS (test code = 62 U/L 34-122 7209012123) ALTv (test code = 23 U/L 5-35 2-6) AST(SGOT) (test code = 31 U/L 13-40 2719881395) eGFR (test code = 122.1 mL/min/1.73m2 0146744581) ANGI (test code = ANGI) Association of [...] tests). Lab Interpretation Abnormal (test code = 25779-5) [facility] ChildrenLip[facility], [id number] 20:18:51 Test Item Value Reference Range Interpretation Comments LIPASE (test code = 7567283885) 186 U/L 0-220 Lab Interpretation (test code = Normal 29988-2) [facility] ChildrenCBC with [id number] 19:39:40 Test Item Value Reference Range Interpretation Comments WBC (test code = 5.62 See_Comment [Automated 6690-2) message] The sy stem [...] RDW-SD (test code = 44.1 fL 39.0-49.9 22525-7) RDW-CV (test code = 13.2 % 12.0-15.5 788-0) PLT (test code = 277 See_Comment [Automated 777-3) message] The sy stem which generated this result transmitted reference range : 166 - 358 10*3/ ?L. The reference r dagoberto was not used to interpret this result as normal/abnormal . MPV (test code = 8.5 fL 9.5-12.9 L 69136-7) NRBC/100 WBC (test 0.0 See_Comment [Automat ed code = 5779010790) message] The system which generated this result transmitted reference range : 0.0 - 10.0 /100 WBCs. The refer ence range was not u sed to interpret th is result as normal/abnormal . NRBC x10^3 (test code See_Comment [Auto mated = 4303878509) message] The s ystem which generated this result transmitted reference range : 10*3/?L. The reference range was not used to interpret this result as normal/abnormal . GRAN MAT (NEUT) % 46.4 % (test code = 770-8) IMM GRAN % (test code 0.90 % = 2438561989) LYMPH % (test code = 38.6 % 736-9) MONO % (test code = 12.5 % 5905-5) EOS % (test code = 0.7 % 713-8) BASO % (test code = 0.9 % 706-2) GRAN MAT x10^3(ANC) 2.61 10*3/uL 1.88-7.09 (test code = 4974811855) IMM GRAN x10^3 (test 0.05 10*3/uL 0.00-0.06 code = 0998693590) LYMPH x10^3 (test code 2.17 10*3/uL 1.32-3.29 = 731-0) MONO x10^3 (test code 0.70 10*3/uL 0.33-0.92 = 742-7) EOS x10^3 (test code = 0.04 10*3/uL 0.03-0.39 711-2) BASO x10^3 (test code 0.05 10*3/uL 0.01-0.07 = 704-7) Lab Interpretation Abnormal (test code = 32760-0) [facility]PO[facility] [id number] 19:34:00 Test Item Value Reference Range Interpretation Comments POCT PREG (test code = 1605) Negative On board controls acceptable with Yes C Line (test code = 3574) POCT PREG LOT # (test code = 357) [id number] POCT PREG TEST DATE (test 04/13/2024 code = 3576) Lab Interpretation (test code = Normal 88498-6) [facility] ChildrenCOMP. METABOLIC PANEL ([id number])2023-01-15 15:36:17 Test Item Value Reference Range Interpretation Comments NA (test code = 139 mmol/L 135-145 5963403915) K (test code = 4.7 mmol/L 3.5-5.0 6298250150) CL (test code = 103 mmol/L 98-108 8254200380) CO2 TOTAL (test code 28 mmol/L 23-31 = 8026556953) AGAP (test code = 8 2-16 4281980546) BUN (test code = 14 mg/dL 7-23 6757364142) GLUCOSE (test code = 75 mg/dL 70-110 6446832272) CREATININE (test code 0.72 mg/dL 0.50-1.04 = 9848149799) TOTAL BILI (test code 0.4 mg/dL 0.1-1.1 = 3278096317) CALCIUM (test code = 9.4 mg/dL 8.6-10.6 2927795072) T PROTEIN (test code 7.4 g/dL 6.3-8.2 = 8350776068) ALBUMIN (test code = 4.5 g/dL 3.5-5.0 3553219149) ALK PHOS (test code = 58 U/L 34-122 0525410374) ALTv (test code = 22 U/L 5-35 2-6) AST(SGOT) (test code 24 U/L 13-40 = 7883594426) eGFR (test code = 95.1 mL/min/1.73m2 3018358391) ANGI (test code = ANGI) Association of [...] urine or abnormalities in imaging tests). [facility] ChildrenLIPASE2023-05-12 15:36:17 Test Item Value Reference Range Interpretation Comments LIPASE (test code = 4397956895) 93 U/L 0-220 Lab Interpretation (test code = Normal 17082-7) [facility] ChildrenCBC WITH [id number] 15:19:14 Test Item Value Reference Range Interpretation [...] RDW-SD (test code = 42.5 fL 39.0-49.9 92974-1) RDW-CV (test code = 12.9 % 12.0-15.5 788-0) PLT (test code = 317 See_Comment [Automated 777-3) message] The sy stem which generated this result transmitted reference range : 166 - 358 10*3/ ?L. The reference r dagoberto was not used to interpret this result as normal/abnormal . MPV (test code = 8.8 fL 9.5-12.9 L 11983-0) NRBC/100 WBC (test 0.0 See_Comment [Automat ed code = 6571287778) message] The system which generated this result transmitted reference range : 0.0 - 10.0 /100 WBCs. The refer ence range was not u sed to interpret th is result as normal/abnormal . NRBC x10^3 (test code See_Comment [Auto mated = 7705556025) message] The s ystem which generated this result transmitted reference range : 10*3/?L. The reference range was not used to interpret this result as normal/abnormal . GRAN MAT (NEUT) % 55.7 % (test code = 770-8) IMM GRAN % (test code 0.30 % = 8217038530) LYMPH % (test code = 34.0 % 736-9) MONO % (test code = 8.1 % 5905-5) EOS % (test code = 1.0 % 713-8) BASO % (test code = 0.9 % 706-2) GRAN MAT x10^3(ANC) 4.45 10*3/uL 1.88-7.09 (test code = 9324188444) IMM GRAN x10^3 (test 0.00-0.06 code = 8045432387) LYMPH x10^3 (test code 2.72 10*3/uL 1.32-3.29 = 731-0) MONO x10^3 (test code 0.65 10*3/uL 0.33-0.92 = 742-7) EOS x10^3 (test code = 0.08 10*3/uL 0.03-0.39 711-2) BASO x10^3 (test code 0.07 10*3/uL 0.01-0.07 = 704-7) Lab Interpretation Abnormal (test code = 96449-1) [facility]PO[facility] [id number] 16:38:09 Test Item Value Reference Range Interpretation Comments POCT Creatinine (test code = 0.7 mg/dL 0.5-1.2 7502011351) Lab Interpretation (test code = Normal 10377-8) [facility] ChildrenTHYROID STIMULATING [id number] 17:16:01 Test Item Value Reference Range Interpretation Comments TSH (test code = 3.96 See_Comment [Automated message] 1786489562) The system whic h generated this result transmitted ref erence range: 0.45 - 4 .70 mIU/L. The refe rence range was not u sed to interpret this result as normal/abnor mal. Lab Interpretation (test Normal code = 60341-2) [facility] ChildrenD-[id number] 11:33:33 Test Item Value Reference Interpretation Comments Range D-DIMER (test code = See_Comment [Autom ated 0831393600) message] The system which generated this result [...] diagnosis. Lab Interpretation Normal (test code = 63124-2) [facility] [id number] 10:57:27 Test Item Value Reference Range Interpretation Comments TROPONIN I (test code = 0.012 ng/mL <=0.034 3323392589) ANGI (test code = ANGI) Reference (Normal) [...] biotin. Lab Interpretation Normal (test code = 53799-7) [facility] [id number] 09:04:18 Test Item Value Reference Range Interpretation Comments TROPONIN I (test code = 0.010 ng/mL <=0.034 5152075162) ANGI (test code = ANGI) Reference (Normal) [...] biotin. Lab Interpretation Normal (test code = 48844-0) [facility] WITH [id number] 09:03:38 Test Item Value Reference Range Interpretation Comments WBC (test code = 10.76 See_Comment [Automated 5568-2) message] The sy stem which generated this result transmitted reference range : 4.30 - 11.10 10*3/?L. The reference range was not used to interpret this result as normal/abnormal . RBC (test code = 4.19 See_Comment [Automated 451-8) message] The sy stem which generated this [...] (test code = 36.7 fL 39.0-49.9 L 76987-9) RDW-CV (test code = 11.6 % 12.0-15.5 L 788-0) PLT (test code = 317 See_Comment [Automated 777-3) message] The sy stem which generated this result transmitted reference range : 166 - 358 10*3/ ?L. The reference r dagoberto was not used to interpret this result as normal/abnormal . MPV (test code = 8.8 fL 9.5-12.9 L 53110-9) NRBC/100 WBC (test 0.0 See_Comment [Automat ed code = 7423843552) message] The system which generated this result transmitted reference range : 0.0 - 10.0 /100 WBCs. The refer ence range was not u sed to interpret th is result as normal/abnormal . NRBC x10^3 (test code See_Comment [Auto mated = 0857437085) message] The s ystem which generated this result transmitted reference range : 10*3/?L. The reference range was not used to interpret this result as normal/abnormal . GRAN MAT (NEUT) % 49.3 % (test code = 770-8) IMM GRAN % (test code 0.50 % = 8392628447) LYMPH % (test code = 42.6 % 736-9) MONO % (test code = 6.3 % 5905-5) EOS % (test code = 0.6 % 713-8) BASO % (test code = 0.7 % 706-2) GRAN MAT x10^3(ANC) 5.32 10*3/uL 1.88-7.09 (test code = 6442235169) IMM GRAN x10^3 (test 0.05 10*3/uL 0.00-0.06 code = 5657914260) LYMPH x10^3 (test code 4.58 10*3/uL 1.32-3.29 H = 731-0) MONO x10^3 (test code 0.68 10*3/uL 0.33-0.92 = 742-7) EOS x10^3 (test code = 0.06 10*3/uL 0.03-0.39 711-2) BASO x10^3 (test code 0.07 10*3/uL 0.01-0.07 = 704-7) Lab Interpretation Abnormal (test code = 41361-2) [facility]. METABOLIC PANEL ([id number])2022-12-14 08:52:54 Test Item Value Reference Range Interpretation Comments NA (test code = 137 mmol/L 135-145 1690827231) K (test code = 3.9 mmol/L 3.5-5.0 3166843601) CL (test code = 103 mmol/L 98-108 4682831772) CO2 TOTAL (test code 25 mmol/L 23-31 = 2069747293) AGAP (test code = 9 2-16 4282666317) BUN (test code = 14 mg/dL 7-23 3173605407) GLUCOSE (test code = 88 mg/dL 70-110 7099431187) CREATININE (test code 0.69 mg/dL 0.50-1.04 = 3746622520) TOTAL BILI (test code 0.4 mg/dL 0.1-1.1 = 6171862715) CALCIUM (test code = 9.5 mg/dL 8.6-10.6 3029218042) T PROTEIN (test code 7.8 g/dL 6.3-8.2 = 1908820493) ALBUMIN (test code = 4.9 g/dL 3.5-5.0 0504639884) ALK PHOS (test code = 59 U/L 34-122 5277846202) ALTv (test code = 19 U/L 5-35 1742-6) AST(SGOT) (test code 23 U/L 13-40 = 3052460903) eGFR (test code = 99.9 mL/min/1.73m2 7458154434) ANGI (test code = ANGI) Association of [...] urine or abnormalities in imaging tests). [facility]20[facility] 08:52:34 Test Item Value Reference Range Interpretation Comments LIPASE (test code = 9079135924) 70 U/L 0-220 Lab Interpretation (test code = Normal 58691-4) [facility] ChildrenD-[id number] 15:45:47 Test Item Value Reference Interpretation Comments Range D-DIMER (test code = See_Comment [Autom ated 9809607519) message] The system which generated this result [...] diagnosis. Lab Interpretation Normal (test code = 71678-6) [facility] ChildrenPREGNANC[facility] TEST, [id number] 15:07:51 Test Item Value Reference Range Interpretation Comments PREG SERUM (test code Negative = 5849682300) ANGI (test code = ANGI) Less than 10 IU/L. ?If low titer or ectopic is suspected, resubmit specimen in 48-72 hours. [facility]. METABOLIC PANEL (49201)2022-11-03 15:05:35 Test Item Value Reference Range Interpretation Comments NA (test code = 138 mmol/L 135-145 0686066154) K (test code = 4.4 mmol/L 3.5-5.0 6255319199) CL (test code = 104 mmol/L 98-108 1782668876) CO2 TOTAL (test code = 25 mmol/L 23-31 7682872010) AGAP (test code = 9 2-16 9588021001) BUN (test code = 8 mg/dL 7-23 5899878768) GLUCOSE (test code = 100 mg/dL 70-110 0514184526) CREATININE (test code = 0.68 mg/dL 0.50-1.04 2764558357) TOTAL BILI (test code = 0.6 mg/dL 0.1-1.7 4342920391) CALCIUM (test code = 9.3 mg/dL 8.6-10.6 6885221819) T PROTEIN (test code = 8.2 g/dL 6.3-8.2 5501163097) ALBUMIN (test code = 5.1 g/dL 3.5-5.0 H 0665743798) ALK PHOS (test code = 57 U/L 34-122 9842711690) ALTv (test code = 21 U/L 5-35 2-6) AST(SGOT) (test code = 29 U/L 13-40 7178154203) eGFR (test code = 101.6 mL/min/1.73m2 3229913665) ANGI (test code = ANGI) Association of [...] tests). Lab Interpretation Abnormal (test code = 34593-5) [facility] WITH [id number] 14:50:54 Test Item Value Reference Range Interpretation Comments WBC (test code = 8.23 See_Comment [Automated 8715-2) message] The sy stem which generated this result transmitted reference range : 4.30 - 11.10 10*3/?L. The reference range was not used to interpret this result as normal/abnormal . RBC (test code = 4.47 See_Comment [Automated 668-8) message] The sy stem which generated this [...] (test code = 36.4 fL 39.0-49.9 L 95890-4) RDW-CV (test code = 11.2 % 12.0-15.5 L 788-0) PLT (test code = 384 See_Comment H [Automated 777-3) message] The sy stem which generated this result transmitted reference range : 166 - 358 10*3/ ?L. The reference r dagoberto was not used to interpret this result as normal/abnormal . MPV (test code = 8.4 fL 9.5-12.9 L 92913-3) NRBC/100 WBC (test 0.0 See_Comment [Automat ed code = 8349344136) message] The system which generated this result transmitted reference range : 0.0 - 10.0 /100 WBCs. The refer ence range was not u sed to interpret th is result as normal/abnormal . NRBC x10^3 (test code See_Comment [Auto mated = 8832338942) message] The s ystem which generated this result transmitted reference range : 10*3/?L. The reference range was not used to interpret this result as normal/abnormal . GRAN MAT (NEUT) % 47.0 % (test code = 770-8) IMM GRAN % (test code 0.20 % = 1515723923) LYMPH % (test code = 44.0 % 736-9) MONO % (test code = 6.6 % 5905-5) EOS % (test code = 1.1 % 713-8) BASO % (test code = 1.1 % 706-2) GRAN MAT x10^3(ANC) 3.87 10*3/uL 1.88-7.09 (test code = 3942060269) IMM GRAN x10^3 (test 0.00-0.06 code = 3490144511) LYMPH x10^3 (test code 3.62 10*3/uL 1.32-3.29 H = 731-0) MONO x10^3 (test code 0.54 10*3/uL 0.33-0.92 = 742-7) EOS x10^3 (test code = 0.09 10*3/uL 0.03-0.39 711-2) BASO x10^3 (test code 0.09 10*3/uL 0.01-0.07 H = 704-7) Lab Interpretation Abnormal (test code = 78501-7) [facility] Lumbar Spine Wo Tmwpqmio6585-59-05 00:46:53EXAMINATION: MRI LUMBAR SPINE WO CONTRAST CLINICAL HISTORY: M54.2 Cervicalgia, G89.29 Other chronic pain, Low back pain > 6 wks COMPARISON: None. FINDINGS: Noncontrast MRI of the lumbar spine is interpreted. The lowest fully formed disc space is designated L5-S1. The conus terminates in a normal position and is normal in signal intensity. Bone marrow signal is normal. L1-2: Unremarkable. L2-3: Unremarkable. L3-4: Unremarkable. L4-5: Unremarkable. L5-S1: Mild disc degenerative changes. Small left subarticular zone disc protrusion with potential contact on the traversing left S1 nerve root. The paraspinous soft tissues are unremarkable. IMPRESSION: Small left subarticular zone disc protrusion at L5-S1 with potential contact on the traversing left S1 nerve root. Clinical correlation is suggested.[facility] [id number] 00:46:53EXAMINATION: MRI LUMBAR SPINE WO CONTRAST CLINICAL HISTORY: M54.2 Cervicalgia, G89.29 Other chronic pain, Low back pain > 6 wks COMPARISON: None. FINDINGS: Noncontrast MRI of the lumbar spine is interpreted. The lowest fully formed disc space is designated L5-S1. The conus terminates in a normal position and is normal in signal intensity. Bone marrow signal is normal. L1-2: Unremarkable. L2-3: Unremarkable. L3-4: Unremarkable. L4-5: Unremarkable. L5-S1: Mild disc degenerative changes. Small left subarticular zone disc protrusion with potential contact on the traversing left S1 nerve root. The paraspinous soft tissues are unremarkable. IMPRESSION: Small left subarticular zone disc protrusion at L5-S1 with potential contact on the traversing left S1 nerve root. Clinical correlation is suggested.B-MJOEGDBZ [facility] Cervical Spine Wo [id number] 00:31:05EXAMINATION: MRI CERVICAL SPINE WO CONTRAST CLINICAL [...] or pseudomeningoceles of the cervical nerve roots. [address] [place] [address] MRI Cervical Spine Wo [id number] 00:31:05EXAMINATION: MRI CERVICAL SPINE WO CONTRAST CLINICAL HISTORY: M54.2 Cervicalgia, G89.29 Other chronic pain, Chronic Neck pain COMPARISON: External cervical spine MRI on 10/09/2021. External cervical spine CT on 11/28/2021. TECHNIQUE: Multiplanar, multisequence examination was performed of the cervical spine without IV contrast. FINDINGS: Alignment: Normal lordosis. No significant lateral curvature. No cobb bluxations.Cervicomedullary junction: Unremarkable. Vertebrae: No focal suspicious signal [...] or pseudomeningoceles of the cervical nerve roots. [facility]51[facility]2022-12-05 16:49:00 Test Item Value Reference Range Interpretation Comments SURGICAL (test code = SR) R UN DATE: 08/10/22 [facility] PAGE 1 RUN TIME: 1649 Specimen Inquiry RUN USER: INTERFACE P ATIENT: LONA MARIE LOC: [place] U #: [id number] AGE/SX: 32/F ROOM: [facility] RE08/07/22REG DR: Gianna Tyler MD : [birth year] BED: A DIS: 08/08/22 STATUS: DIS Keira TLOC: SPEC #: [id number] RECD: 08/07/22 STATUS: MIKI MAI #: [id number] LAURYN: 08/07/[address]: Gianna Tyler MD ENTERED: 08/07/22 SP TYPE: SURGICAL OTHR DR: No Primary or Family PhysicianORDERED: ANATOMIC SPEC/4, SPEC TRACK, 71829/4 COPIES TO: No Primary or Family Physician Gianna Tyler MD [address] [facility] [address] [facility], [address] [place] [address] PROCEDURES: 55324 (08/07/22-1016) TISSUES: A. BREAST, EXCISION OF DISCRETE [...] Inquiry RUN USER: INTERFACE S PEC #: [id number] PATIENT: LONA MARIE #[id number] (Continued) GROSS DESCRIPTION (Continued) Ink code: [place]-duct surface; black-remainder of the specimen. B. Received [...] Fragment 3.XZ 08/07/22 Technical component performed at [facility],[id number] , [place] [address] Unless gross only, the diagnosis is based [...] 08/10/22 1649 END OF REPORT CBC W/AUTO [id number] 14:24:00 Test Item Value Reference Range Interpretation [...] NORMAL NORMAL code = PLTMR) UR HCG [id number] 18:52:00 Test Item Value Reference Range Interpretation Comments UR HCG QUAL (test code = HCGQLU) NEGATIVE NEGATIVE SURGICAL [id number] 08:42:00 Test Item Value Reference Range Interpretation Comments SURGICAL SPECIMENS (test code = SURG) --------RUN DATE: 12/31/20 [facility] - LAB PAGE 1 RUN TIME: 841 Specimen Inquiry RUN USER: INTERFACE --------PATIENT: LONA MARIE LOC: [place] U #: [id number] AGE/SX: 30/F ROOM: [facility] RE12/26/20REG DR: Olegario Srivastava MD : [birth year] BED: 02 DIS: 12/26/20 STATUS: DIS Keira TLOC: -------- SPEC #: [id number] RECD: 12/26/20 STATUS: MIKI REQ #: [id number] LAURYN: 12/26/[address] [facility] DR: Olegario Srivastava MD ENTERED: 12/26/20 [...] and its performance characteristics determined by the [facility]. It has not been cleared or approved by the US Food and Drug Administration. The FDA has determined that such clearance or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 DIFF/PLT)2020-02-14 00:00:00 Test Item Value Reference Range Interpretation Comments WHITE BLOOD CELL 6.6 3.8-10.8 N COUNT (test code = {Thousand/u} WHITE BLOOD CELL COUNT) RED BLOOD CELL COUNT 4.30 3.80-5.10 N (test code = RED {Million/uL} BLOOD CELL COUNT) HEMOGLOBIN; Normal 12.7 g/dl 11.7-15.5 N (test code = 86747-3) HEMATOCRIT; Normal 39.4 % 35.0-45.0 N (test code = 4544-3) MCV; Normal (test 91.6 fL 80.0-100.0 N code = 787-2) MCHC; Normal (test 32.2 g/dl 32.0-36.0 N code = 03660-7) RDW; Normal (test 12.4 % 11.0-15.0 N code = 788-0) PLATELET COUNT; 334 140-400 N Normal (test code = {Thousand/u} 777-3) MPV; Normal (test 9.5 fL 7.5-12.5 N code = 69929-0) ABSOLUTE NEUTROPHILS 3485 7548-4043 N (test code = {cells/uL} ABSOLUTE NEUTROPHILS) [...] Normal 7.9 % N (test code = 94908-7) EOSINOPHILS; Normal 0.6 % N (test code = 92933-1) BASOPHILS; Normal 0.8 % N SPECIMEN R ECEIVED (test code = DATE AND TIME: 76180-6) [facility][QL] [id number] 00:00:00 Test Item Value Reference Range Interpretation Comments AMYLASE (test code = 27 u/l 21-101 N SPECIME N RECEIVED DATE AND AMYLASE) TIME: [facility][QL] [id number] 00:00:00 Test Item Value Reference Range Interpretation Comments LIPASE (test code = 18 u/l 7-60 N SPECIMEN RECEIVED DATE AND LIPASE) TIME: [facility]. [facility] - Affirm VPIII (BV Panel)2020-02-14 00:00:00 Test Item Value Reference Range Interpretation Comments Case (test code = Click ImageLink button N Case) for report. [facility][O] Urine Test (in office)2020-01-31 00:00:00 Test Item Value Reference Range Interpretation Comments Test, Urine; Normal (test neg N code = 2106-3) [facility][QL] CBC (INCLUDES DIFF/PLT)2020-01-31 00:00:00 Test Item Value Reference Range Interpretation Comments WHITE BLOOD CELL 8.3 3.8-10.8 N COUNT (test code = {Thousand/u} WHITE BLOOD CELL COUNT) RED BLOOD CELL COUNT 4.61 3.80-5.10 N (test code = RED {Million/uL} BLOOD CELL COUNT) HEMOGLOBIN; Normal 14.0 g/dl 11.7-15.5 N (test code = 72894-7) HEMATOCRIT; Normal 41.8 % 35.0-45.0 N (test code = 4544-3) MCV; Normal (test 90.7 fL 80.0-100.0 N code = 787-2) MCHC; Normal (test 33.5 g/dl 32.0-36.0 N code = 06854-9) RDW; Normal (test 12.2 % 11.0-15.0 N code = 788-0) PLATELET COUNT; 393 140-400 N Normal (test code = {Thousand/u} 777-3) MPV; Normal (test 9.8 fL 7.5-12.5 N code = 62300-3) ABSOLUTE NEUTROPHILS 4739 7655-9870 N (test code = {cells/uL} ABSOLUTE NEUTROPHILS) [...] Normal 8.1 % N (test code = 66744-5) EOSINOPHILS; Normal 1.2 % N (test code = 30776-6) BASOPHILS; Normal 0.7 % N SPECIMEN R ECEIVED (test code = DATE AND TIME: 58798-9) [id number] [facility]. [facility] - Affirm VPIII (BV Panel)2020-01-31 00:00:00 Test Item Value Reference Range Interpretation Comments Case (test code = Click ImageLink button N Case) for report. [facility] Pelvis with Pelvis Transvaginal [id number] 14:57:00 PROCEDURE INFORMATION:Exam: US Pelvis Complete, Transabdominal [...] pelvic ultrasound.Gigi Noel MD On 07/13/2019 14:15:41; [id number]--Oybi by: Gigi Noel MDDictated Date/time: 07/13/19 14:15Electronically Signed by: Gigi Noel MD 07/13/1914:15FINAL REPORT[facility][QL] CBC (INCLUDES DIFF/PLT)2019-06-28 17:22:01 Test Item Value Reference Range Interpretation Comments WBC (test code = 6690-2) 7.3 {K/CMM} 3.7-10.4 RBC (test code = 789-8) 4.46 {M/CMM} 4.20-5.40 Hgb (test code = 718-7) 13.9 g/dl 12.0-16.0 Hct (test code = 47878-1) 40.2 % 36.0-48.0 MCV (test code = 787-2) 90.1 fL 80.0-98.0 MCH; Above High Threshold (test 31.2 pg 27.0-31.0 code = 785-6) MCHC (test code = 786-4) 34.6 g/dl 32.0-36.0 RDW (test code = 788-0) 12.9 % 11.5-14.5 Platelet (test code = 39897-4) 381 {K/CMM} 133-450 Mean Platelet Volume (test code 7.6 fL 7.4-10.4 = 66329-3) [facility][H] [id number] 17:20:01 Test Item Value Reference Range Interpretation [...] Intermediate, N/A= Not Applicable [facility][QLH] URINALYSIS, [id number] 17:18:01 Test Item Value Reference Range Interpretation Comments UA Color (test code = 5778-6) Yellow Yellow UA Turbidity; Abnormal (test code Slight Clear A = 82367-0) UA Spec Grav (test code = 5810-7) 1.020 <=1.030 UA pH (test code = 5803-2) 5.0 5.0-8.0 UA Protein (test code = 77658-2) Negative Negative UA Glucose (test code = 44818-2) Negative Negative UA Ketones (test code = 59838-1) Negative Negative UA Bili (test code = 5770-3) Negative Negative UA Blood; Abnormal (test code = Small Negative A 5794-3) UROBILINOGEN (test code = 44421-4) <1.0 0.1-1.0 UA Nitrite (test code = 5802-4) Negative Negative UA Leuk Est (test code = 5799-2) Negative Negative UA RBC; Above High Threshold (test 4 {/HPF} 0-2 code = 14235-9) UA WBC (test code = 20005-5) 3 {/HPF} 0-5 UA Bacteria (test code = 25810-1) Occasional None Seen UA Mucus; Abnormal (test code = Moderate None Seen A 8247-9) UA Sq Epi; Abnormal (test code = Moderate Few A 60402-5) [facility][H] PT/PTT Mixing Study [id number] 17:18:01 Test Item Value Reference Range Interpretation [...] 22.9-35.8 FACTOR DE FICIENCIES may code = 94742-9) be congenita l or acquired. Acqui red deficiencies ma ybe seen with gut steril ization or long-termant ibiotic use. Suggest ap propriate factor assays, whereclinically indicated.CIRCU LATING INHIBITORS may be associated with either bleedingor thro mbotic tendencies. Cer tain circulating inh ibitors maybe transient (drug-related o r seocndary to autoimmune/infl ammatory conditions). Cobb ggest further studies as clinically alicia cated. [facility][QL] TSH, 3RD GENERATION W/REFLEX TO [id number] 17:18:01 Test Item Value Reference Range Interpretation Comments TSH (test code = 15488-4) 2.340 {uIU/ml} 0.360-3.740 [facility][QL] HEMOGLOBIN [id number] 17:18:01 Test Item Value Reference Range Interpretation Comments Hemoglobin A1c (test code = 4548-4) 5.3 % <=5.6 [facility]- CT ABD PELVIS [id number] 23:16:00 Name: LONA MARIE [facility] : 1990 Age/S: 28 / F [address] [place] [address] Unit #: [id number] Loc: [place] [address] Phys: Cheyenne Pearson MD Acct: [id number] Dis Date: Status: REG ER PHONE #: [phone] Exam Date: 02/28/2019 2235 FAX #: [phone] Reason: abd pain post dx lap EXAMS: CPT CODE: [id number] CT ABD PELVIS W/CONT 52293 PROCEDURE: CT abdomen and pelvis with contrast [...] Signed Report (CONTINUED) Name: LONA MARIE [facility] : 1990 Age/S: 28 / F [address] [place] [address] Unit #: [id number] Loc: [place] [address] Phys: Cheyenne Pearson MD Acct: [id number] Dis Date: Status: REG ER PHONE #: [phone] Exam Date: 02/28/2019 2235 FAX #: [phone] Reason: abd pain post dx lap EXAMS: CPT CODE: [id number] CT ABD PELVIS W/TFGR41548 <Continued> PELVIS: No gross abnormalities of the [...] (2316) ValentinDMM Orig Print D/T: S: 02/28/2019 (4601) PAGE 2 Signed ReportCOMPREHENSIVE METABOLIC [id number] 22:37:00 Test Item Value Reference Range Interpretation [...] 20-125 N TOTAL (test code = ALKP) [id number] 22:37:00 Test Item Value Reference Range Interpretation Comments LIPASE (test code = LIP) 111 IUnit/L 73-393 N HCG SERUM [id number] 22:37:00 Test Item Value Reference Range Interpretation Comments HCG SERUM QUAL (test code = SERUM NEGATIVE NEGATIVE HCGQL) COMPREHENSIVE METABOLIC [id number] 22:28:00 Test Item Value Reference Range Interpretation [...] 20-125 N TOTAL (test code = ALKP) [id number] 22:28:00 Test Item Value Reference Range Interpretation Comments LIPASE (test code = LIP) 111 IUnit/L 73-393 N HCG SERUM [id number] 22:28:00 Test Item Value Reference Range Interpretation Comments HCG SERUM QUAL (test code = SERUM NEGATIVE NEGATIVE HCGQL) COMPREHENSIVE METABOLIC [id number] 22:04:00 Test Item Value Reference Range Interpretation [...] TOTAL (test IUnit/L 20-125 code = ALKP) [id number] 22:04:00 Test Item Value Reference Range Interpretation Comments LIPASE (test code = LIP) IUnit/L 73-393 HCG SERUM [id number] 22:04:00 Test Item Value Reference Range Interpretation Comments HCG SERUM QUAL (test code = SERUM NEGATIVE NEGATIVE HCGQL) URINALYSIS [id number] 21:58:00 Test Item Value Reference Range Interpretation [...] NONE SEEN SQU) COMMENTS: Clean CatchCBC W/AUTO [id number] 21:54:00 Test Item Value Reference Range Interpretation [...] (test code NO = MDIFF) BASIC METABOLIC [id number] 16:03:00 Test Item Value Reference Range Interpretation [...] 8.9 mg/dL 8.0-10.5 N CA) HCG SERUM [id number] 16:03:00 Test Item Value Reference Range Interpretation Comments HCG SERUM QUAL (test code = SERUM NEGATIVE NEGATIVE HCGQL) CBC W/AUTO [id number] 16:00:00 Test Item Value Reference Range Interpretation [...] (test code NO = MDIFF) BASIC METABOLIC [id number] 15:57:00 Test Item Value Reference Range Interpretation [...] code = CA) mg/dL 8.0-10.5 HCG SERUM [id number] 15:57:00 Test Item Value Reference Range Interpretation Comments HCG SERUM QUAL (test code = SERUM NEGATIVE NEGATIVE HCGQL) - US TRANSVAGINAL NON [id number] 15:45:00 Name: LONA MARIE [facility] : 1990 Age/S: 28 / F [address] [place] [address] Unit #: [id number] Loc: [place] [address] Phys: EDDOC GENERIC FOR EDM Acct: [id number] Dis Date: Status: REGER PHONE #: [phone] Exam Date: 01/25/2019 1532 FAX #: [phone] Reason: PAIN.VB/PCOS EXAMS:CPT CODE: [id number] [place] [address] EXAMINATION: Pelvic ultrasound 01/25/2019. CLINICALHISTORY: Pelvic pain, [...] Technologist: Tara Bunch RDMS(OB)(AB) Trnscb Date/Time: 01/25/2019 (1541) Kailyn Orig Print D/T: S: 01/25/2019 (1549) Probe: [id number] PAGE 1 Signed Report- US PELVIS COMPLETE 2019-01-25 15:45:00 Name: LONA MARIE [facility] Nba Neville : 1990 Age/S: 28 / F [address] [place] [address] Unit #: [id number] Loc: [place] [address] Phys: Carolyn Dodson Acct: [id number] Dis Date: Status: REG ER PHONE #: [phone] Exam Date: 01/25/2019 1532 FAX #: [phone] Reason: pelvic pain, bleeding, PCOS EXAMS: CPT CODE: [id number] US PELVIS COMPLETE 93410 EXAMINATION: Pelvic ultrasound 01/25/2019. CLINICAL HISTORY: Pelvic [...] evidence of intrauterine or extrauterine gestation. at 4227 Reported and signed by: Lidia Ramírez M.D. CC: Carolyn DEVLIN Technologist: Tara Bunch RDMS(OB)(AB) Trnscb Date/Time: 01/25/2019 (0015) ValentinLAUREATE PSY[facility] [place] Orig Print D/T: S: 01/25/2019 (8780) Probe: PAGE 1 Signed Report COMPREHENSIVE DRUG [id number] 13:52:00 Test Item Value Reference Range Interpretation Comments DRUG TOXICOLOGY SEE HARD COPY FAX TO (test code = DRUG) REPORT Notes Date/Time Note Provider Source 2023-05-25 0509-13-46K71:02:09Formatting of this IM-CARDIOV ASCULA [facility] 15:02:09 note might be different from the R DISEASE STAFF original.[facility] is not contracted with Marie.Once she completes the current event monitor, it goes back to the ordering provider who had ordered the event monitor. Subsequent to which we can try to reach out to the ordering provider to get the official report of the event monitor. 64663-5Rowdesbgb encounter BrqaJD8030-54-83I13:03:57Telephone encounter NoteTXT1.2.840.858240.1.13.104.2.7.2.72 7879|[id number] for patient bwfj90815-9LoyjYBJW-OHRQJLXFBQMRZH DISEASE STAFF-CARDIOVASCULAR DISEASE STAFF[id number] QUTWGECPPFTASHCQNYE4772-02-24H98:03:571 .2.840.095285.1.72.3.15|1.2.840.868816. 1.13.104.2.7.2.727879_1904121670 2023-05-25 0461-71-61E95:12:11Formatting of this Jennifer Soriano [facility] 10:12:11 note might be different from the Marcos MISHRA original.Routing to provider, please advise. 91161-5Mbsdxvilp encounter YmgmVH3807-76-30U39:12:32Telephone encounter NoteTXT1.2.840.647305.1.13.104.2.7.2.72 7879|[id number] for patient behb12162-6LgntLI151803155Vngngtdgz D Garcia MA[id number] LYRNQMRXMBXYVJXJOUO4391-27-66S36:12:321 .2.840.050966.1.72.3.15|1.2.840.019158. 1.13.104.2.7.2.727879_[id number] 2023-05-25 6495-96-52X17:52:21Formatting of this Salud Waters [facility] 08:52:21 note might be different from the Reji original.Lona Marie is a 32 year old femalePatient is out of state and states she has a heart monitor on that needs to be assigned to Dr. Ma, however, the platinumsmith needs the provider to call and assign. Patient states the monitor is not from [employer], and is a [employer]. She asks that the clinic call and assign Dr. Ma to the monitor. Alexis Calvillo LOV 12/15/2022 15618-9Ecfgyyaci encounter BtpdAT2096-68-01X92:54:57Telephone encounter NoteTXT1.2.840.981189.1.13.104.2.7.2.72 7879|[id number] for patient wnht88321-5FbxrMD093340667Tyaprng S [address] DybwFjdemouvwQzjydarxpZXYU6778121666RSF JBMGZARLSEDLKJHXLMT1010-99-61M03:54:571 .2.840.873512.1.72.3.15|1.2.840.810766. 1.13.104.2.7.2.727879_[id number] 2023-05-24 6949-36-85W77:24:57Formatting of this Fiona almeida RN [facility] 12:24:57 note might be different from the [...] She is listing Dr. 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 Provided Lona with our fax number as well in case any additional information is needed. Lona states she will call back once she knows her flight schedule and will schedule an appointment with either Dr. Ma or Dr. Mason. 14392-7Gtkstpkjt encounter YaykCB6940-97-66J73:38:54Telephone encounter NoteTXT1.2.840.523485.1.13.104.2.7.2.72 7879|[id number] for patient xyyq11512-7KaqrLX142115129Toyi Olga [address] KutlCdpqqcussQosmewwgvYWNX6017265320QLE GOYMGZEZUAEZVFNMEPC3705-17-98F34:38:541 .2.840.456916.1.72.3.15|1.2.840.180432. 1.13.104.2.7.2.727879_[id number] 2023-05-24 7303-60-73W96:09:59Formatting of this Agata Flores [facility] 10:09:59 note might be different from the [...] 100%. Please give her a call. Thanks. 13205-9Wndihvsdw encounter DbieQX9784-10-15D42:15:51Telephone encounter NoteTXT1.2.840.646887.1.13.104.2.7.2.72 7879|[id number] for patient iijx30555-3RqffVS767199518Geswezn M. Garcia[id number] XMVAYPHVPLNVNNVFNFX1284-39-73J88:15:511 .2.840.056890.1.72.3.15|1.2.840.317966. 1.13.104.2.7.2.727879_1902241374 2023-05-20 0425-95-30W91:37:13Formatting of this Anne-Marie Pablo [facility] 09:37:13 note might be different from the original.Orders and Referral faxed to [facility] per patients request. Anne-Marie Flores RN 05/20/2023 9:37 AM' 31250-4Tfjgptcpl encounter VfdaCV0066-03-96S73:38:31Telephone encounter NoteTXT1.2.840.123470.1.13.104.2.7.2.72 7879|[id number] for patient zkmr85633-5NldfEE625825546Smclwcq Stahl [address]TXTX[address]5577555USU HHIKKSMTTYCHOMVNVRP1992X52:38:311 .2.840.940154.1.72.3.15|1.2.840.947798. 1.13.104.2.7.2.727879_1899485735 2023-05-19 3228-00-48T14:46:09Formatting of this Iman Stewart [facility] 16:46:09 note might be different from the TAD original.Attempt x 1 to contact pt regarding message below. Left voicemail for pt to call clinic back. 63320-5Nivkbfdum encounter XotaPE5844-86-75U61:52:34Telephone encounter NoteTXT1.2.840.681477.1.13.104.2.7.2.72 7879|[id number] for patient uqrq38306-1VnlzOX093667830Sjkvpqu E Burch MA[address]TXTX[address]5577555USU UAVFBVZOCDAUSFCIHIJ2984-75-75O31:52:341 .2.840.091404.1.72.3.15|1.2.840.974131. 1.13.104.2.7.2.727879_[id number] 2023-05-19 3339-29-35I18:27:16Formatting of this Shelby Walton [facility] 16:27:16 note might be different from the [place] original.Pt called and states that she is out of state. She is requesting for mammogram order and referral to be sent to [facility] in [place], [place]. She is also needing biopsy results faxed over as well. Please fax to [phone] and call pt when it has been addressed. Call back number: [phone] signed by Shelby Ji at 05/19/2023 4:30 PM NPW65652-2Tdvfxzeqa encounter KqtkFM5087-34-62Y70:30:21Telephone encounter NoteTXT1.2.840.561287.1.13.104.2.7.2.72 7879|[id number] for patient cttv55004-9GzxrGW91824989Fqhpfvz R MarroquinUT[id number] ZROWJPPIBJOUYHCXVTY1657-18-68J64:30:211 .2.840.574850.1.72.3.15|1.2.840.096267. 1.13.104.2.7.2.727879_[id number] 2022-09-14 [id number]:47:00 [facility] 20:47:00 [facility])Discharge SummaryREPORT#:[id number] REPORT STATUS: SignedDATE:09/14/22 TIME: 2046 PATIENT: LONA MARIE UNIT #: [id number]#: [id number] [address] [birth year] AGE: 32 SEX: F ATTEND: [...] 7-10 Qty = 15 No Refills Comments: [id number] Attending: Yisel Tyler MARCOS: [id number] Discharge Instructions PCP)( Discharge to: Home/Self Care Discharge InstructionsAdditional Discharge Routines: Attending Follow-Up)( Diet: Resume Home Diet/Feeds Follow-up AppointmentsAttending Physician: Attending Physician: Gianna Tyler MD Special instructions:Do not submerge incision for 4 weeks (no bathing, swimming) Shower is ok. Do not lift anything heavier than 10 lbs for 4 weeks. Follow up in clinic in 2-3 weeks. at 2049 RPT #:[id number] OF REPORT DSDischarge lksujkt2255-01-53B19:47:00F.YTMF6758650 9-0402AVAvailable for patient hwglZOMPIRSIWJQVWS2699-71-34R64:50:01 2022-08-07 [id number]:01:00 [facility] 15:01:00 [facility] ([facility])Clinical NoteREPORT#:[id number] REPORT STATUS: SignedDATE:08/07/22 TIME: 1501 PATIENT: LONA MARIE UNIT #: [id number]#: [id number] ROOM/BED:: 92 AGE: 32 SEX: F ATTEND: Gianna Tyler [facility] AUTHOR: Gianna Tyler MD * ALL edits or amendments must be made on the electronic/computer document * Clinical NoteNote:Due to the patient's uncontrolled pain, I will admit her for observation and give a INSPECTOR [employer] to help to aid in pain control. at 1501 [facility] #:[id number] OF REPORT CLClinical fxtm4722-42-48L77:01:00F.WICH03450529-7 364AVAvailable for patient cxxlHCRJSLRZZWHWRS3532-08-82U72:02:04 2022-08-07 [id number]:22:00 [facility] 14:22:00 [facility] ([facility])Full Op NoteREPORT#:[id number] REPORT STATUS: SignedDATE:08/07/22 TIME: 1422 PATIENT: LONA MARIE UNIT #: [id number]#: [id number] [address] [birth year] AGE: 32 SEX: F ATTEND: Gianna Tyler [facility] AUTHOR: Gianna Tyler MD * ALL edits [...] transported to PACU in stable condition.Primary Surgeon: NayeliAssistant(s): noneAnesthesia: general anesthesiaOperative findings:fibrocystic glandular tissue present, duct ectasia identifiedComplications: noneEstimated blood loss in ml's: 20 mLSpecimens removed/altered: 1. right breast 10:00 mass 2. right breast upper inner quadrant mass 3. right breast r3:00 massImplant(s): none at 1609 RPT #:[id number] OF REPORT OPOperative sormeu7499-73-58P85:22:00F.[id number] -0389AVAvailable for patient xalrMPFOUSIGQRUMDV4333-30-21M34:09:30 2022-08-03 [id number]:47:00 [facility]L 15:47:00 [facility] PROVID[facility] REPORTREPORT#:[id number] REPORT STATUS: SignedDATE:08/03/22 TIME: 1547 PATIENT: LONA MARIE UNIT #: [id number]#: [id number] ROOM/BED:AGE: 32 SEX: F PCP PHYS: No [...] Room air Interpretation Interpreted by , Pulse oximetry normal Time 1553 Re-Evaluation MDM [...] Result Date Time Pulse Ox 100 08/03 151 B/P 130/76 08/03 151 B/P Mean 94 08/03 151 Pulse 87 [...] or a call to 911. at 1623RPT #:[id number] OF REPORTEDEmernorth [facility] medical center department dilutx6171-56-74C37:47:00G.[id number] -1005AVAvailable for patient ewebAZDWRUCORGITYD9892-40-84N30:23:46 2022-08-03 [id number]:03:700434-495 HCAWH 12:03:00 9 [facility] [address] [place], [place] [address] PATIENT NAME: LONA MARIE ADMIT DATE: ACCOUNT NO: [id number] ROOM NO: AGE: 32 SEX: F ADMITTING PHYSICIAN: ATTENDING PHYSICIAN: Gianna Tyler MD Order:[id number] Reason : PRE-OP (08/07/2022) Test Date/Time Stamp:WedAug 03 2022 12:03:44Blood Pressure : / mmHGVent. Rate : 070 BPM Atrial Rate : 070 BPM P-R Int : 142 ms QRS Dur : 072 ms QT Int : 400 ms P-R-T Axes : 059 086 070 degrees QTc Int : 432 ms Normal sinus rhythmNormal ECG Confirmed by ROBERT KU ([id number]) on 08/03/2022 12:46:48 PM Referred By: Gianna Tyler Confirmed by:ROBERT UK at 1246 PATIENT NAME: LONA MARIE .[id number] for patient ijctPHEEOJDWYUJNGC4215-79-88G18:47:03 2021-10-02 [id number]:04:00 [facility]00 [facility] REPORTREPORT#:[id number] REPORT STATUS: SignedDATE:10/02/21 TIME: 1703 PATIENT: LONA MARIE UNIT #: [id number]#: [id number] ROOM/BED:AGE: 31 SEX: F PCP PHYS: No [...] here. She was seen in July at [facility] and offered transfer here for MRI [...] 10/02 175 Resp 16 10/02 1755 Physical ExamGeneral/Const General/Const Awake, Alert, No acute [...] MidLv Saw Pt AloneI have reviewed the PA/BOILER SHOP SUPERVISOR's note and plan of care. I was available for consultation as needed at all times during the patient's visit in the emergency department. I agree with the clinical impression, plan and disposition. at 2221 at 2027RPT #:[id number] OF REPORTEDEmergency department xuyreq3403-99-89Y50:04:00G.[id number] -1277AVAvailable for patient ivobKWBWMSYQAGVZXC9745-86-18X51:22:18 2021-07-23 [id number]:03:00 [facility] 14:03:00 [facility] REPORTREPORT#:[id number] REPORT STATUS: SignedDATE:07/23/21 TIME: 1403 PATIENT: LONA MARIE UNIT #: [id number]#: [id number] ROOM/BED:AGE: 31 SEX: F PCP PHYS: Darien SamayoaERVICE AUTHOR: Burak Coles MD * ALL edits [...] extremities. Free Text HPI NotesFree Text HPI Pmter72-kxqn-xsj female patient with a past medical and surgical history as recorded in EMR reports to the [facility] emergency department at request of hermedical care [...] could transfer her by ambulance to the [facility] emergency department for evaluation for emergent MRI. Patient refuses transfer to [place] for evaluation MRI. Patient reports that she will present there on her own. Patient requests pain medication while here to help lessen the pain for her trip by POV to [place]. Of note patient ambulates normally and is [...] General, ED Paraesthesias, ED Radiculopathy, Cervical, ED SciaticaReferralsTomas Rodriguez MD: Call for appointment Discharge NoteI have [...] or a call to 911. at 1717RPT #:[id number] OF REPORTEDEmernorth metro medical center department mlmsha0196-10-65Y61:03:00G.[id number] -1062AVAvailable for patient dcwrAKIKKDRUXFJHXT7485-47-85P13:17:26 2020-12-27 PCpsapdfgzl260808448225-02-11Z59:15:00 [facility] 22:15:00 [facility] ([facility])EMERGENCY PROVIDER REPORTREPORT#:[id number] REPORT STATUS: SignedDATE:12/27/20 TIME: 2214 PATIENT: LONA MARIE UNIT #: [id number]#: [id number] ROOM: BED:AGE: 30 SEX: F PCP PHYS: [...] upper endoscopy yesterday. I spoke with Dr. sEcobar who reported that her endoscopy showed old [...] % (Auto) (20.5 - 51.1 %) 26.0 [place] % (Auto) (1.7 - 9.3 %) 4.6 Eos % (Auto) (0.0 - 7.0 %) 0.5 Baso % (Auto) (0 - 2.5 %) 0.5 Neut # (Auto) (1.80 - 7.70 x10 3/uL) 6.66 Lymph # (Auto) (1.00 - 4.80 x10 3/uL) 2.54 [place] # (Auto) (0.00 - 0.80 x10 3/uL) [...] be mildly tachy with heart rate in elow 90 but normotensive. Patient with reports of upper [...] CT scan of her abdomen done at [facility] that was reportedly unremarkable. Based on history [...] IV 12/28 636 Patient Discharge Departure Vital Signs/ConditionVital SignsFirst Documented: [...] Rik Escobar MD: 2-3 Days at 2322RPT #:[id number] OF REPORTEDEmergency department lrnbvl0951-68-19S87:15:00P.[id number] -0016AVAvailable for patient efbgUGWPWQZMUGUGZQ8498-68-75F15:22:20 2020-12-26 STutjxafrlx266971857211-13-23I19:38:000 [facility] 11:38:00 [phone] [facility] [address] [place] [address] PATIENT NAME: LONA MARIE ADMIT DATE: 12/26/20ACCOUNT NO: [id number] ROOM NO: AGE: 30 REPORT TYPE: ENDOSCOPY REPORT SEX: F ADMITTING PHYSICIAN: ATTENDING PHYSICIAN:Rik Escobar MD [facility] Name: Cynthia Lona Attending MD: VILMA Tavarezrocedure Date: 12/26/2020 11:38 AM Number: [id number] Date of : 1990Admit Type: Preadmit Age: 30Room: Room 1 Gender: FemaleNote Status: Finalized _ Procedure: Upper GI endoscopyPre Procedure Diagnosis: Epigastric abdominal painAssistants: Rik Escobar MD, Crystal Auguste (Nurse), Young Raygoza, Bottom Sander, Castillo WILKINS MD: Rik Escobar MDAnesthesia: Monitored [...] the physician, the nurse, the anesthesiologist, the manager document control and the dairy technician in the pre-procedure area in the [...] LONA MARIE Procedure Date: 12/26/2020 11:38:36 AMProvation {[id number]}.pdf ProVation FT PDF at 1240 PATIENT NAME: LONA MARIE hmnsxof6808-05-75K20:40:00P.[id number] -0059AVAvailable for patient mlplDAGIRARDDRAAKG0087-65-84O15:41:01 2020-12-22 UGgugaspwgk785682031658-71-50K62:14:00 [facility] 22:14:00 [facility] ([facility])EMERGENCY PROVIDER REPORTREPORT#:[id number] REPORT STATUS: SignedDATE:12/22/20 TIME: 2213 PATIENT: LONA MARIE UNIT #: [id number]#: [id number] ROOM: BED:AGE: 30 SEX: F PCP PHYS: No Primary or Family PhysicianSERVICE AUTHOR: Jayme Rodríguez MD * ALL edits or amendments must be made on the electronic/computer document * HPI-Abd Pain F Under 40 Free Text HPI NotesFree Text HPI Jvecc91-xwre-joo female with a past medical history of [...] DIZZINESS #50 TAB Prov: 08/25/20 Reported MedicationsHydrocodone/Apap ([place] 10/325) 1 TAB PO Q4H PRN PAIN [...] rashRectum Rectum/Perineum Blood - occult heme neg, assistant plant control operator passed, No gross blood, No fissures, No hemorrhoids, Sphincter tone NLNeurologic Neurologic Oriented X3, Speech NL, No motor deficits, No sensory deficits Interpretation Diagnostics Lab Results InterpretationResultsLaboratory Tests 12/22/202254:[Embedded Image Not Available]Laboratory Tests: 12/22 Chemistry Sodium (136 - 145 [...] % (Auto) (20.5 - 51.1 %) 24.3 [place] % (Auto) (1.7 - 9.3 %) 6.4 Eos % (Auto) (0.0 - 7.0 %) 1.2 Baso % (Auto) (0 - 2.5 %) 0.7 Neut # (Auto) (1.80 - 7.70 x10 3/uL) 6.87 Lymph # (Auto) (1.00 - 4.80 x10 3/uL) 2.49 [place] # (Auto) (0.00 - 0.80 x10 3/uL) 0.66 Eos # (Auto) (0.00 - 0.45 x10 3/uL) 0.12 Baso # (Auto) (0.0 - 0.20 x10 3/uL) 0.07 Urines Urine Color (YELLOW DISCRIPT) YELLOW Urine Appearance (CLEAR DISCRIPT) CLEAR Urine pH (5.0 - 9.0) 5.5 Ur Specific [place] (1.005 - 1.030) 1.025 Urine Protein (NEGATIVE [...] #1 InterpretationECG Documented in MUSE YesDate 12/22/20Time 2203Interpreted by ED physicianNL ECG Interpretation Normal rateRate [...] to go home with. Pt was advised thatshe had a ADOPTION SOCIAL WORKER score of 480 and would need to ask her PCP or Dr. Escobar for further pain medication. Pt was advised I could not prescribe medications out from the ED due to her score. ED CourseMedication(s) OrderedMedication(s) Ordered:Autonomic Drugs Sig/Arina Start time Last Medication Dose Route Stop Time Status Admin Dicyclomine HCl 20 MG X1ED STA 12/220 DC IM 12/22 2200 Central Nervous System Agents Sig/Arina Start time Last Medication Dose Route Stop Time Status Admin Hydrocodone Bitart/ 1 TAB X1ED STA 12/224 DC 12/22 Acetaminophen PO 12/225 2319 Electrolytic, Caloric, [...] )( Discharged to Home Yes )( Time 235 )( Date 12/22/20 Discharge/Care PlanCounseled Regarding Diagnosis, [...] Pain, ED Diet for Vomiting or Diarrhea Rik Cote MD Discharge NoteI have spoken with the [...] or a call to 911. at 0016RPT #:[id number] OF REPORTEDEmergency department zvdnwg7105-03-74P58:14:00P.[id number] -0016AVAvailable for patient mamiDIIRKJTNDZYNPN6756-01-81L40:17:17 2020-12-22 VTyqjondhio962078243803-16-67L41:03:000 [facility] 22:03:00 [phone] [place] [id number] NAME: LONA MARIE ADMIT DATE: 12/22/20ACCOUNT NO: [id number] ROOM NO: AGE: 30 REPORT TYPE: eELECTROCARDIOGRAM SEX: F ADMITTING PHYSICIAN: ATTENDING PHYSICIAN: Order:[id number] Reason : Test Date/Time Stamp:[place] Dec 22 2020 22:03:30Blood Pressure : / mmHGVent. Rate : 081 BPM Atrial Rate : 081 BPM P-R Int : 142 ms QRS Dur : 068 ms QT Int : 352 ms P-R-T Axes : 048 074 046 degrees QTc Int : 408 ms Normal sinus rhythmNormal ECGNo previous ECGs availableConfirmed by LIBRADO MAS MD ([id number]) on 12/23/2020 5:40:11 PM Referred By: Jayme Rodríguez Confirmed by:LIBRADO MAS MD at 1740 PATIENT NAME: LONA MARIE .VQS178 [id number] for patient ssscAXODGDKMQKTCNA8414-52-75L86:40:35 2020-08-25 RVziplucizd571592576792-59-92T99:44:001 [facility] 11:44:00 [phone] [address] PATIENT NAME: LONA MARIE Christie ADMIT DATE: 08/23/20ACCOUNT NO: [id number] ROOM NO: P0724 AGE: 30 REPORT TYPE: PROGRESS NOTE SEX: [...] urology. It appearsshe has been seen by DICE TABLE OPERATOR at [facility] to follow up may be warranted also. Dictated By: Naheed Taylor DO WT: PN:KARLIE/RADHA/NTSDD: 08/25/2020 11:44:07DT: 08/25/2020 12:00:11Conf#: [id number]/DID#: [id number] Authenticated by Naheed Taylor DO On 09/17/2020 11:59:25 AM PATIENT NAME: LONA MARIE at 1159 PATIENT NAME: LONA MARIE Qhgj9736-94-79F91:00:00P.BCW04209256-83 22AVAvailable for patient juyvYQRLGDTKNIZTLL5965-64-68R06:59:56 2020-08-25 RPfdimulpwr055765331265-34-35M82:42:001 [facility] 11:42:00 [phone] [facility] [address] [place] [address] PATIENT NAME: LONA MARIE ADMIT DATE: 08/23/20ACCOUNT NO: [id number] ROOM NO: P.0724 AGE: 30 REPORT TYPE: [...] vomiting. Also, reported dark stools. [facility] and was transferred here to Dr. [...] haveoutpatient workup. She has been seen by DICE TABLE OPERATOR at [facility], Dr. Escobar,the photovoltaic panel installer. She may need urology also. Dictated By: Naheed Taylor DO WT: CON:PYOLANDA/RADHA/NTSDD: 08/25/2020 11:42:03DT: 08/25/2020 12:23:57Conf#: [id number]/SOWMYA#: [id number] Authenticated by Naheed Taylor DO On 09/17/2020 11:59:26 AM at 1159 PATIENT NAME: LONA MARIE :23:00P.[id number] for patient jahxPURZLMQOAOKZVA9363-66-29N17:00:05 2020-08-23 KKdhbcymeoq467188275632-88-54B04:16:001 [facility] 13:16:00 [phone] [facility] [address] [place] [address] PATIENT NAME: LONA MARIE ADMIT DATE: 08/23/20ACCOUNT NO: [id number] ROOM NO: DANNY AGE: 30 REPORT TYPE: ENDOSCOPY REPORT SEX: F ADMITTING PHYSICIAN:Olegario Srivastava MD ATTENDING PHYSICIAN:Olegario Srivastava MD [facility] Patient Name: Cynthia Zamorano Attending MD: Rik Escobar MDProcedure Date: 08/23/2020 1:16 PM Number: [id number] Date of : 1990Admit Type: Inpatient Age: 30Room: Room 2 Gender: FemaleNote Status: Finalized _ Procedure: Upper GI endoscopyPre Procedure Diagnosis: Epigastric abdominal painAssistants: Rik Escobar MD, Crystal Auguste (Nurse), Jennifer Varela, Bottom Sander, Duglas Shin MD: Jose Luis Ly MdAnesthesia: [...] the physician, the nurse, the anesthesiologist, the manager document control and the dairy technician in the pre-procedure area in the [...] care were monitored PATIENT NAME: LONA MARIE throughout the procedure. The physical status of [...] 08/23/2020 1:16 PMProcedure Date: 08/23/2020 1:16:08 PMProvation {[id number]}.pdf ProVation FT PDF PATIENT NAME: LONA MARIE at 1401 PATIENT NAME: LONA MARIE omyhapg6741-11-54Y77:01:00P.[id number] -0079AVAvailable for patient udwzMWADDKVWOXKXTS1330-67-73Q25:01:38 2020-08-23 EUnjswqlrze865728635226-96-94J26:24:00 [facility] 09:24:00 [facility] ([facility])EMERGENCY PROVIDER REPORTREPORT#:[id number] REPORT STATUS: SignedDATE:08/23/20 TIME: 923 PATIENT: LONA MARIE UNIT #: [id number]#: [id number] ROOM: [facility] BED: 1AGE: 30 SEX: F PCP PHYS: Self ReferredSERVICE AUTHOR: Jose Luis Ly MD * ALL edits or amendments must be made on the electronic/computer document * HPI-General Illness Free Text HPI NotesFree Text HPI Hkrlx02-pisv-oio female complaining of vomiting dark matter and [...] denies other complaints. She was admitted at [facility] a few days ago for the [...] Past Medical History - AdultStated Complaint ABDOMINAL HQZQ-IVTAHZBJ-XGYSJQYYBWPAbnituhgwTxeex Allergies:Penicillins (Severe, rash 08/23/20)adhesive tape (Severe, raya [...] Sodium Chloride 1,000 ML X1ED STA 08/23 932 AC IV 08/23 1031 Gastrointestinal Drugs Sig/Arina Start time Last Medication Dose Route Stop Time Status Admin Famotidine 20 MG X1ED STA 08/23 0932 AC Sodium Chloride 10 ML IV 08/23 2131 ConsultationConsultation Referral/Consult Name Rik Escobar MD Requested Call Time 0930 Requested Call Date 08/23/20 Call Returned Time 1000 Call Returned Date 08/23/20 Lace Stripper will do egd obs nelida srivastava Patient Discharge Departure Vital Signs/ConditionVital SignsFirst Documented: [...] 1007 )( Accepted Date 08/23/20 at 2100RPT #:[id number] OF REPORTEDEmergency department elmkph4930-43-70M19:24:00P.LDEV03387757 -0006AVAvailable for patient xpdoVFGIZBJVENAZWG8746-90-11W49:01:13 2020-08-21 SNaejhpedjx017722209990-77-87D77:35:00 [facility] 13:35:00 [facility])Clinical NoteREPORT#:[id number] REPORT STATUS: SignedDATE:08/21/20 TIME: 1335 PATIENT: LONA MARIE UNIT #: [id number]#: [id number] [address] [birth year] AGE: 30 SEX: F ATTEND: Zulay Brooke [facility] AUTHOR: Germania Tabor MD * ALL edits or amendments must be made on the electronic/computer document * Clinical NoteNote:When I wrote the prescriptions for this patient, the pharmacy ([facility] [phone]) called to tell me they could refill [...] called me yesterday.I returned her call today [phone]. The patient requesting refills of both Ativan and oxycodone. I told her the ativan should have a refill and I confirmedthis with the pharmacy. The patient is going to see GI today at a building near [place]. She said she can stop by to warp picker the prescription for oxycodone. I have written for oxycodone 5 mg i po q 6 hrs, #12, no refills. The pt states she has tried to call the pain specialist for an appt, but has notreceived any call back. I have texted the pain specialist regarding an appt. The patient informed of no more refills from me. at 1341 RPT #:[id number] OF REPORT CLClinical sqdb3499-83-09F22:35:00F.WKYL28162174-9 289AVAvailable for patient mhkxJIRJTNFQLCNZOW2153-67-76X40:42:16 2020-08-17 VXtzntyzsff166200723346-72-26R93:31:001 [facility] 14:31:00 [phone] [facility] [address] PATIENT NAME: LONA MARIE ADMIT DATE: 08/15/20ACCOUNT NO: [id number] ROOM NO: [facility] AGE: 30 SEX: F ADMITTING PHYSICIAN: Zulay Brooke MD ATTENDING PHYSICIAN: Zulay Brooke MD ADMISSION DATE: 08/15/2020DISCHARGE DATE: 08/17/2020 ADMITTING DIAGNOSES: Ruptured ovarian cyst, urinary tract infection,abdominal/pelvic pain, narcotic use, heartburn. ADMITTING SERVICE: GUM COOK hospitalist. CONSULTATIONS: GUM COOK hospitalist, Dr. Cid, for a second opinion; and general surgery with Dr. Lopez. PROCEDURES: IV antibiotics. Pelvic ultrasound, abdominal ultrasound, abdominalx-ray. HOSPITAL COURSE: The patient is a 30-year-old -1-1-1, who had developedpain shortly postcoital, which was severe, and she initially went to the [facility] ER in [place]. She came here the next day with [...] was given. Again, the CAT scan from [place] did not show any abnormal dilation of the kidneys or ureters or bladder, no evidence of stones. While here, a comprehensive metabolic panel was normal. Complete blood count was normal with a hemoglobin of 12 and a white count of 9. Her abdominal exam was benign. I attempted to get records as the patient had hysterectomies at [place], the patient allowed me to request those records; however, she declined signing to get any records from any [facility] facility. The patient required quite a bit of pain medications. The morphine did not seem to help her too much and she was requesting Dilaudid. She had notable shaking as well as she reported vomiting, and heartburn symptoms and upset stomach. However, there was no vomiting that was witnessed by staff or medical doctors here. The patient was upset with the GUM COOK hospitalist who was on the day of [...] also noted on [facility] AWAxE with over 20prescriptions of narcotics within the [...] evening. We gave her Pepcid and the nightOB/DICE TABLE OPERATOR hospitalist, Dr. Coelho, ordered an abdominal ultrasound [...] PATIENT NAME: LONA MARIE DT: 08/17/2020 15:48:44Conf#: [id number]/DID#: [id number] Authenticated and Edited by Germania Tabor MD On 08/20/20 12:16:32 AM at 0018 PATIENT NAME: LONA MARIE icrvbri3567-69-38L08:48:00F.[id number] -0025AVAvailable for patient qbkrEJSCCEBDECMAUG8421-94-90R85:18:16 2020-08-17 VJjuxrkxgmp328322429164-57-90F78:48:001 [facility] 10:48:00 [facility] [facility] [address] PATIENT NAME: LONA MARIE ADMIT DATE: 08/15/20ACCOUNT NO: [id number] ROOM NO: F.2660 AGE: 30 SEX: F [...] home there and [facility]. Presently,the patient [...] WBC 7.7, hemoglobin 12.3, hematocrit 38.8, and wjtohkoqq473. Sodium 139, potassium 4.1, chloride 101, CO2 [...] ductal dilatation. The CT [facility] and this shows a small [...] MD WT: CON:URMILA/HERSON.02/NTSDD: 08/17/2020 10:48:05DT: 08/17/2020 13:21:00Conf#: [id number]/DID#: [id number] Authenticated and Edited by Ashlie Lopez MD On 08/21/20 10:46:17 AM at 1049 PATIENT NAME: LONA MARIE :21:00F.[id number] for patient ysjqZFFOPGDSHATUPT6306-25-99U37:50:09 2020-08-17 PXoorrzvlqx489736767876-55-98E39:35:00 [facility] 10:35:00 [facility])Clinical NoteREPORT#:[id number] REPORT STATUS: SignedDATE:08/17/20 TIME: 1035 PATIENT: LONA MARIE UNIT #: [id number]#: [id number] ROOM/BED: [facility]-ADOB: [birth year] AGE: 30 SEX: F ATTEND: Zulay [...] is mostly in the pelvic region-nonsurgical abdomen #[id number] at 1048 RPT #:[id number] OF REPORT CLClinical yreh5208-64-37A19:35:00F.SERZ69111494-3 111AVAvailable for patient qgmhFNBPWCPPPRAFQA0286-35-69C27:48:37 2020-08-16 QPbxghqfahs458482687378-04-60I18:47:00 [facility] 21:47:00 [facility])Clinical NoteREPORT#:[id number] REPORT STATUS: SignedDATE:08/16/20 TIME: 2146 PATIENT: LONA MARIE UNIT #: [id number]#: [id number] ROOM/BED: [facility]-ADOB: [birth year] AGE: 30 SEX: F ATTEND: Zulay [...] 19 129/86 100.1 100 Room air 08/16 172 98.2 89 18 130/84 99.2 100 Room [...] other etiology presents. Follow temp curve at 5140 RPT #:[id number] OF REPORT CLClinical fmql3629-01-88B61:47:00F.YYGC07532907-6 461AVAvailable for patient bvorXYWZELIROENZZV2090-44-66F71:59:24 2020-08-16 OJyegghxfgk297053485693-02-44T36:35:00 [facility] 12:35:00 [facility] ([facility])Clinical NoteREPORT#:[id number] REPORT STATUS: SignedDATE:08/16/20 TIME: 1235 PATIENT: LONA MARIE UNIT #: [id number]#: [id number] ROOM/BED: [facility]-ADOB: [birth year] AGE: 30 SEX: F ATTEND[facility] AUTHOR: Ghulam Cid III, MD * ALL edits or amendments must be made on the electronic/computer document * Clinical NoteNote: OB /DICE TABLE OPERATOR Hospitalist Jose Roberto Consult Requesting physician Dr Germania Tabor Pelvic pain 30 year old white female [id number] S/P hysterectomyCC Severe lower ab pelvic pain.HPI About 2 nights ago she had intercourse with her . She then developed severe lower ab pain that radiated to her upper abdomen. She became bloated. Claims to have had a near syncopal episode after intercourse. She was seen at [facility] in [place] earlier today. CT scan reported showing a [...] She continues to request more pain meds. [facility] Allergies Allergy Severity Reaction Updated Coded metoclopramide [...] found for the bleeding. History of fibroids. DICE TABLE OPERATOR Treated for chlamydia, paps negative, fibroids, questionable endometriosis. PMH Past history of seizures, no meds for at least 2 years Denies history of depression, psychiatric disorder PSH C/section, d and c, 2 laparoscopies, TLH in april 2020, appendectomy MEDS see hospital med reconcilliation FMH Positive for hypertension SH occ smoker, no [...] % (Auto) (14.3 - 34.3 %) 24.1 [place] % (Auto) (5.1 - 10.4 %) 8.3 Eos % (Auto) (0.1 - 3.0 %) 1.0 Baso % (Auto) (0.1 - 1.0 %) 0.6 Neut # (Auto) (K/mm3) 5.9 Lymph # (Auto) (K/mm3) 2.2 [place] # (Auto) (K/mm3) 0.7 Eos # (Auto) (K/mm3) 0.09 Baso # (Auto) (K/mm3) 0.1 Miscellaneous Maternal Serum HCG <1 Urines Urine Color (YELLOW) YELLOW Urine Appearance (CLEAR) CLEAR Urine pH (5 - 9) 5.0 Ur Specific [place] (1.001 - 1.035) >1.035 H Urine Protein [...] management may be needed. Consideration of a high school social studies tutor consult if needed. I spoke with Dr Tbaor. at 0106 RPT #:[id number] OF REPORT CLClinical sxsq6634-70-39N00:35:00F.ZTOD04913353-6 265AVAvailable for patient oclaVHXECHWULQZVPS7107-93-06J15:06:33 2020-08-16 FIxrmapcxrr793364259231-79-43R85:18:00 [facility] 09:18:00 [facility])Gynecology Progress NoteREPORT#:[id number] REPORT STATUS: SignedDATE:08/16/20 TIME: 917 PATIENT: LONA MARIE UNIT #: [id number]#: [id number] ROOM/BED: [facility]-ADOB: [birth year] AGE: 30 SEX: F ATTEND: Zulay Brooke [facility] AUTHOR: Germania Tabor MD * ALL edits [...] 04/25. She states it was done at [place]. She claims to not remember the surgeon's name. She states she only saw her 3 times, and was sent home the day of surgery. [facility] states she did not follow-up for her postop visit, but went to an Er in [place] 1-2 weeks later for bloating. She was told she had some fluid in her abdomen, but everything else seemed fine, "and they sent me home with only 10 hydrocodone." She has some papers in her personal [employer] bag--from an [place] or [facility] visit yesterday. The CT with contrast [...] % (Auto) (14.3 - 34.3 %) 24.1 [place] % (Auto) (5.1 - 10.4 %) 8.3 Eos % (Auto) (0.1 - 3.0 %) 1.0 Baso % (Auto) (0.1 - 1.0 %) 0.6 Neut # (Auto) (K/mm3) 5.9 Lymph # (Auto) (K/mm3) 2.2 [place] # (Auto) (K/mm3) 0.7 Eos # (Auto) (K/mm3) 0.09 Baso # (Auto) (K/mm3) 0.1 Laboratory Tests 08/15 1535 Miscellaneous Maternal Serum HCG <1 Laboratory Tests 08/15 1635 Urines Urine Color (YELLOW) YELLOW Urine Appearance (CLEAR) CLEAR Urine pH (5 - 9) 5.0 Ur Specific [place] (1.001 - 1.035) >1.035 H Urine Protein [...] data:Recent Impressions:ULTRASOUND - US TRANSVAGINAL W/PELVIS 08/15 958 Report Impression - Status: SIGNED Entered: 08/15/2020 5440 IMPRESSION:1. Abnormal small volume free pelvic fluid.2. Nonvisualization of the uterus and ovaries. SL: BILL-HImpression By: [email or web address] - Rubin Hairston MDULTRASOUND - US PELVIS COMPLETE 08/15 1751 Report Impression - Status: SIGNED Entered: 08/15/2020 1837 IMPRESSION:1. Abnormal small volume free pelvic fluid.2. Nonvisualization of the uterus and ovaries. SL: SG-HImpression By: Kassandra.[email or web address] - Rubin Hairston MD Diagnosis, Assessment PlanProblem List/A P: [...] We could try to get [facility] to be courired here--I will seesbout requesting. I had the patient sign records to try to get a better idea of prior surgeries. at 0933 RPT #:[id number] OF REPORT PRProgress [id number]:18:00F.[id number] 172AVAvailable for patient uuhzHGWJKSQWYKUKYH3051-58-48Q73:33:47 2020-08-16 TZaexmxldbf451621254629-17-63T46:18:00 [facility] 09:18:00 [facility] ([facility])Gynecology Progress NoteREPORT#:[id number] REPORT STATUS: SignedDATE:08/16/20 TIME: 917 PATIENT: LONA MARIE UNIT #: [id number]#: [id number] ROOM/BED: [facility]-ADOB: [birth year] AGE: 30 SEX: F [facility] AUTHOR: Germania Tabor MD * ALL edits [...] 04/25. She states it was done at [place]. She claims to not remember the surgeon's name. She states she only saw her 3 times, and was sent home the day of surgery. Sht states she did not follow-up for her postop visit, but went to an Er in [place] 1-2 weeks later for bloating. She was told she had some fluid in her abdomen, but everything else seemed fine, "and they sent me home with only 10 hydrocodone." She has some papers in her personal belongins bag--from an [place] or [facility] visit yesterday. The CT with contrast [...] % (Auto) (14.3 - 34.3 %) 24.1 [place] % (Auto) (5.1 - 10.4 %) 8.3 Eos % (Auto) (0.1 - 3.0 %) 1.0 Baso % (Auto) (0.1 - 1.0 %) 0.6 Neut # (Auto) (K/mm3) 5.9 Lymph # (Auto) (K/mm3) 2.2 [place] # (Auto) (K/mm3) 0.7 Eos # (Auto) (K/mm3) 0.09 Baso # (Auto) (K/mm3) 0.1 Laboratory Tests 08/15 1535 Miscellaneous Maternal Serum HCG <1 Laboratory Tests 08/15 1635 Urines Urine Color (YELLOW) YELLOW Urine Appearance (CLEAR) CLEAR Urine pH (5 - 9) 5.0 Ur Specific [place] (1.001 - 1.035) >1.035 H Urine Protein [...] We could try to get Ct from [facility] to be courired here--I will seesbout requesting. [...] patient if I could also send to [facility], but she said she's not had anything done at [facility] this year, only their ER in [place]. I also asked if she would sign [...] a second oppinion. I spoke to our flat optical element maker who is out of town, but recommended that the other hospitalist see the patient. I have contacted him. at 1123 RPT #:[id number] OF REPORT PRProgress [id number]:18:00F.[id number] 172AVAvailable for patient zqeiIGAQSRHKNQDRZM7388-70-86S70:23:31 2020-08-16 INpymmdhcop323718021703-32-60C48:18:00 [facility] 09:18:00 [facility] ([facility])Gynecology Progress NoteREPORT#:[id number] REPORT STATUS: SignedDATE:08/16/20 TIME: 917 PATIENT: LONA MARIE UNIT #: [id number]#: [id number] ROOM/BED: [facility]-ADOB: [birth year] AGE: 30 SEX: F ATTEND: Zulay Brooke [facility] AUTHOR: Germania Tabor MD * ALL edits [...] 04/25. She states it was done at [place]. She claims to not remember the surgeon's name. She states she only saw her 3 times, and was sent home the day of surgery. Sht states she did not follow-up for her postop visit, but went to an Er in [place] 1-2 weeks later for bloating. She was told she had some fluid in her abdomen, but everything else seemed fine, "and they sent me home with only 10 hydrocodone." She has some papers in her personal belongins bag--from an [place] or [facility] visit yesterday. The CT with contrast [...] Room air 08/16 335 Temp 98.1 08/16 033 Pulse 66 08/16 335 Resp 16 08/16 [...] % (Auto) (14.3 - 34.3 %) 24.1 [place] % (Auto) (5.1 - 10.4 %) 8.3 Eos % (Auto) (0.1 - 3.0 %) 1.0 Baso % (Auto) (0.1 - 1.0 %) 0.6 Neut # (Auto) (K/mm3) 5.9 Lymph # (Auto) (K/mm3) 2.2 [place] # (Auto) (K/mm3) 0.7 Eos # (Auto) (K/mm3) 0.09 Baso # (Auto) (K/mm3) 0.1 Laboratory Tests 08/15 1535 Miscellaneous Maternal Serum HCG <1 Laboratory Tests 08/15 1635 Urines Urine Color (YELLOW) YELLOW Urine Appearance (CLEAR) CLEAR Urine pH (5 - 9) 5.0 Ur Specific [place] (1.001 - 1.035) >1.035 H Urine Protein [...] We could try to get Ct from [facility] to be courired here--I will seesbout requesting. [...] have sent the release of records to [place] w/o response yet. I then went backto ask the patient if I could also send to [facility], but she said she's not had anything done at [facility] this year, only their ER in [place]. I also asked if she would sign [...] a second oppinion. I spoke to our flat optical element maker who is out of town, but recommended [...] told me, Dr. Perkins, a doctor at [facility] who did her laparoscopy, "messed me [...] patient or coordinating care. at 1507 RPT #:[id number] OF REPORT PRProgress [id number]:18:00F.[id number] 172AVAvailable for patient ipirNTBNTOZBVLMXSD2617-70-49B51:07:44 2020-08-16 WVaxhjkvajz825533466994-54-39K73:18:00 [facility] 09:18:00 [facility] ([facility])Gynecology Progress NoteREPORT#:[id number] REPORT STATUS: SignedDATE:08/16/20 TIME: 917 PATIENT: LONA MARIE UNIT #: [id number]#: [id number] ROOM/BED: [facility]-ADOB: [birth year] AGE: 30 SEX: F ATTEND: Zulay Brooke [facility] AUTHOR: Germania Tabor MD * ALL edits [...] 04/25. She states it was done at [place]. She claims to not remember the surgeon's name. She states she only saw her 3 times, and was sent home the day of surgery. Sht states she did not follow-up for her postop visit, but went to an Er in [place] 1-2 weeks later for bloating. She was told she had some fluid in her abdomen, but everything else seemed fine, "and they sent me home with only 10 hydrocodone." She has some papers in her personal [employer] bag--from an [place] or [facility] visit yesterday. The CT with contrast [...] % (Auto) (14.3 - 34.3 %) 24.1 [place] % (Auto) (5.1 - 10.4 %) 8.3 Eos % (Auto) (0.1 - 3.0 %) 1.0 Baso % (Auto) (0.1 - 1.0 %) 0.6 Neut # (Auto) (K/mm3) 5.9 Lymph # (Auto) (K/mm3) 2.2 [place] # (Auto) (K/mm3) 0.7 Eos # (Auto) (K/mm3) 0.09 Baso # (Auto) (K/mm3) 0.1 Laboratory Tests 08/15 1535 Miscellaneous Maternal Serum HCG <1 Laboratory Tests 08/15 1635 Urines Urine Color (YELLOW) YELLOW Urine Appearance (CLEAR) CLEAR Urine pH (5 - 9) 5.0 Ur Specific [place] (1.001 - 1.035) >1.035 H Urine Protein [...] We could try to get Ct from [facility] to be courired here--I will seesbout requesting. [...] have sent the release of records to [place] w/o response yet. I then went backto ask the patient if I could also send to [facility], but she said she's not had anything done at [facility] this year, only their ER in [place]. I also asked if she would sign [...] a second oppinion. I spoke to our flat optical element maker who is out of town, but recommended [...] told me, Dr. Perkins, a doctor at [facility] who did her laparoscopy, "messed me [...] is a good idea. 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 She went to [facility] IV pain meds without relief. They were going to admit her for pain control, but she declined. She went home and the pain became unbearable, so [facility] Of note, she is s/p hysterectomy [...] edema-all extremitiesMusculoskeletal: full range of motion, normal inspectionNeuro/AQUACULTURIST: alert, oriented X 3Psychiatry: normal affect, normal [...] % (Auto) (14.3 - 34.3 %) 24.1 [place] % (Auto) (5.1 - 10.4 %) 8.3 Eos % (Auto) (0.1 - 3.0 %) 1.0 Baso % (Auto) (0.1 - 1.0 %) 0.6 Neut # (Auto) (K/mm3) 5.9 Lymph # (Auto) (K/mm3) 2.2 [place] # (Auto) (K/mm3) 0.7 Eos # (Auto) (K/mm3) 0.09 Baso # (Auto) (K/mm3) 0.1 Miscellaneous Maternal Serum HCG <1 Urines Urine Color (YELLOW) YELLOW Urine Appearance (CLEAR) CLEAR Urine pH (5 - 9) 5.0 Ur Specific [place] (1.001 - 1.035) >1.035 H Urine Protein [...] answered and she voiced understanding. at 0656 [facility] #:[id number] OF REPORT HPHistory and physical qfmstlfkknx5773-61-11G60:15:00F.UWKF608 36260-3812JZNmgmtukpf for patient nsvdOTLLZEWECACVBK4096-14-93X47:56:58 2020-08-15 PJtemukybzm653617484450-86-05O28:05:00 [facility] 15:05:00 [facility] ([facility])EMERGENCY PROVIDER REPORTREPORT#:[id number] REPORT STATUS: SignedDATE:08/15/20 TIME: 1505 PATIENT: LONA MARIE UNIT #: [id number]#: [id number] ROOM/BED:AGE: 30 SEX: F PCP PHYS: No Primary or Family PhysicianSERVICE AUTHOR: Andressa Razo MD * ALL edits or amendments must be made on the electronic/computer document * Andressa Razo I 08/15/20 1505:HPI-General Illness Provider in Triage Grezoran NoteI have greeted and performed a focused [...] time of this entry have been reviewed. [facility] 1534:HPI-General Illness Free Text HPI NotesFree [...] of vomiting dark content, patient went to [facility] ER and she got CTabdomen that [...] % (Auto) (14.3 - 34.3 %) 24.1 [place] % (Auto) (5.1 - 10.4 %) 8.3 Eos % (Auto) (0.1 - 3.0 %) 1.0 Baso % (Auto) (0.1 - 1.0 %) 0.6 Neut # (Auto) (K/mm3) 5.9 Lymph # (Auto) (K/mm3) 2.2 [place] # (Auto) (K/mm3) 0.7 Eos # (Auto) (K/mm3) 0.09 Baso # (Auto) (K/mm3) 0.1 Miscellaneous Maternal Serum HCG <1 Urines Urine Color (YELLOW) YELLOW Urine Appearance (CLEAR) CLEAR Urine pH (5 - 9) 5.0 Ur Specific [place] (1.001 - 1.035) >1.035 H Urine Protein [...] patient's care and final disposition. [facility] at 1800Discussed Complaint(s) YesLaboratory Evaluation Lab evaluation discussedImaging Studies Ordered, not yet done at 1741RPT #:[id number] OF REPORTEDEmergency department fkzdtj7386-86-90E88:05:00F.[id number] -0326AVAvailable for patient haidNWGHZKTQOXAPWX9328-06-52O13:41:43 2020-08-15 YZozvfvkzfe020802281431-25-44Y72:05:00 [facility] 15:05:00 [facility] ([facility])EMERGENCY PROVIDER REPORTREPORT#:[id number] REPORT STATUS: SignedDATE:08/15/20 TIME: 1505 PATIENT: LONA MARIE UNIT #: [id number]#: [id number] ROOM/BED:AGE: 30 SEX: F PCP PHYS: No Primary or Family PhysicianSERVICE AUTHOR: Andressa Razo MD * ALL edits or amendments must be made on the electronic/computer document * See AddendumAndressa Razo I 08/15/20 1505:HPI-General Illness Provider in Triage Zayra Rudd have greeted and performed a focused rapid [...] of vomiting dark content, patient went to [facility] ER and she got CTabdomen that [...] % (Auto) (14.3 - 34.3 %) 24.1 [place] % (Auto) (5.1 - 10.4 %) 8.3 Eos % (Auto) (0.1 - 3.0 %) 1.0 Baso % (Auto) (0.1 - 1.0 %) 0.6 Neut # (Auto) (K/mm3) 5.9 Lymph # (Auto) (K/mm3) 2.2 [place] # (Auto) (K/mm3) 0.7 Eos # (Auto) (K/mm3) 0.09 Baso # (Auto) (K/mm3) 0.1 Miscellaneous Maternal Serum HCG <1 Urines Urine Color (YELLOW) YELLOW Urine Appearance (CLEAR) CLEAR Urine pH (5 - 9) 5.0 Ur Specific [place] (1.001 - 1.035) >1.035 H Urine Protein [...] patient's care and final disposition. [facility] Transferred at 1800Discussed Complaint(s) YesLaboratory Evaluation Lab evaluation discussedImaging Studies Ordered, not yet done at 1741 Addendum 1: 08/15/20 1806 by Leonardo Rader MD for Thomas Chamberlain MD Patient AddendumAddendum at 1806RPT #:[id number] OF REPORTEDEmergency department qupjtp7776-55-29B53:05:00F.[id number] -0326AVAvailable for patient rnelASULYKBNWESAIW8234-21-39H54:07:14 2020-08-15 JDttfkuykek727957188675-37-28K49:05:00 [facility] 15:05:00 [facility] ([facility])EMERGENCY PROVIDER REPORTREPORT#:[id number] REPORT STATUS: SignedDATE:08/15/20 TIME: 1505 PATIENT: LONA MARIE UNIT #: [id number]#: [id number] ROOM/BED:AGE: 30 SEX: F PCP PHYS: No [...] Hydromorphone HCl 1 MG X1ED STA 08/15 165 DCr 08/15 IV 12/10 1653 1724 Morphine Sulfate 4 [...] of vomiting dark content, patient went to [facility] ER and she got CTabdomen that [...] 1506 Temp 36.9 12/10 1506 Pulse 110 12/ 1506 Resp 20 08/15 1506 Last Documented: [...] % (Auto) (14.3 - 34.3 %) 24.1 [place] % (Auto) (5.1 - 10.4 %) 8.3 Eos % (Auto) (0.1 - 3.0 %) 1.0 Baso % (Auto) (0.1 - 1.0 %) 0.6 Neut # (Auto) (K/mm3) 5.9 Lymph # (Auto) (K/mm3) 2.2 [place] # (Auto) (K/mm3) 0.7 Eos # (Auto) (K/mm3) 0.09 Baso # (Auto) (K/mm3) 0.1 Miscellaneous Maternal Serum HCG <1 Urines Urine Color (YELLOW) YELLOW Urine Appearance (CLEAR) CLEAR Urine pH (5 - 9) 5.0 Ur Specific [place] (1.001 - 1.035) >1.035 H Urine Protein [...] patient's care and final disposition. [facility] Transfer[facility] at 1800Discussed Complaint(s) YesLaboratory Evaluation Lab evaluation discussedImaging Studies Ordered, not yet done at 1741 Addendum 1: 08/15/201805 by Leonardo Rader MD for Thomas Chamberlain MD Patient AddendumAddendum at 1806 Addendum 2: 08/15/20 180 by Leonardo Rader MD Patient AddendumAddendum at 1807RPT #:[id number] OF [facility]ED[facility] department ycacxw6733-61-35U61:05:00F.[id number] -0326AVAvailable for patient pseiKFCYZVDFWKKRES1506-33-51E09:07:34 2020-08-15 ECwtxnnyfpp503097261585-12-12L74:05:00 [facility] 15:05:00 [facility] ([facility])EMERGENCY PROVIDER REPORTREPORT#:[id number] REPORT STATUS: SignedDATE:08/15/20 TIME: 1505 PATIENT: LONA MARIE UNIT #: [id number]#: [id number] ROOM/BED:AGE: 30 SEX: F PCP PHYS: No [...] X1ED STA 12 1653 DC 12/10 IV 12/10 1654 1726 Sodium Chloride 1,000 ML X1ED STA 12 1515 DC 12/10 IV 12/10 1516 1552 Gastrointestinal Drugs Sig/Arina Start time Last Medication Dose Route Stop Time Status Admin Ondansetron HCl 4 MG X1ED STA 08/15 1503 DC 08/15 IV 08/15 1504 1553 Patient Discharge Departure Vital Signs/ConditionVital SignsFirst Documented: Result Date Time Pulse Ox 100 08/15 1506 B/P 163/92 12/ 1506 B/P Mean 115 /10 1506 O2 Delivery Room air / 1506 Temp 36.9 12/10 1506 Pulse 110 12/10 1506 Resp 20 12/ 1506 Last Documented: Result Date Time Pulse Ox 100 08/15 1506 B/P 163/92 12/10 1506 B/P Mean 115 12/10 1506 O2 Delivery Room air / 1506 Temp 36.9 /10 1506 Pulse 110 /10 1506 Resp 20 08/15 1506 All vital [...] of vomiting dark content, patient went to [facility] ER and she got CTabdomen that [...] 1506 Pulse 110 12/ 1506 Resp 20 08/15 1506 Last Documented: Result Date Time Pulse Ox 100 12/ 1506 B/P 163/92 12/ 1506 B/P Mean 115 12/10 1506 O2 Delivery Room air 08/15 1506 Temp 36.9 10 1506 Pulse 110 /10 1506 Resp 20 08/15 1506 Review of [...] % (Auto) (14.3 - 34.3 %) 24.1 [place] % (Auto) (5.1 - 10.4 %) 8.3 Eos % (Auto) (0.1 - 3.0 %) 1.0 Baso % (Auto) (0.1 - 1.0 %) 0.6 Neut # (Auto) (K/mm3) 5.9 Lymph # (Auto) (K/mm3) 2.2 [place] # (Auto) (K/mm3) 0.7 Eos # (Auto) (K/mm3) 0.09 Baso # (Auto) (K/mm3) 0.1 Miscellaneous Maternal Serum HCG <1 Urines Urine Color (YELLOW) YELLOW Urine Appearance (CLEAR) CLEAR Urine pH (5 - 9) 5.0 Ur Specific [place] (1.001 - 1.035) >1.035 H Urine Protein [...] patient's care and final disposition. [facility] Transferred at 1800Discussed Complaint(s) YesLaboratory Evaluation Lab evaluation discussedImaging Studies Ordered, not yet done at 1741 Addendum 1: 08/15/201805 by Leonardo Rader MD, Analysa MD Patient AddendumAddendum at 1806 Addendum 2: 08/15/201806 by Leonardo Rader MD Patient AddendumAddendum at 1807 Addendum 3: 08/15/201809 by Leonardo Rader MD Patient AddendumAddendum at 1810RPT #:[id number] OF REPORTEDEmergency department ohtmyo8814-37-88J77:05:00F.[id number] -0326AVAvailable for patient yddzDOVXOMCPYZOTAF0479-67-64P63:10:14 2020-08-15 LBiyqxneapb029113024893-79-91Y53:05:00 [facility])EMERGENCY PROVIDER REPORTREPORT#:[id number] REPORT STATUS: SignedDATE:08/15/20 TIME: 1505 PATIENT: LONA MARIE UNIT #: [id number]#: [id number] ROOM/BED:AGE: 30 SEX: F PCP PHYS: No [...] MCG X1ED STA 08/15 2109 DC IV 1210 2110 Hydromorphone HCl 0.5 MG X1ED STA 08/15 2011 DCr 12/10 IV 12/10 2011 2043 Hydromorphone HCl 0.5 MG X1ED STA 08/15 1843 DCr 12/10 IV 12/10 1844 1904 [...] B/P Mean 90 / 1834 Temp 36.8 / 1834 Pulse 99 [...] of vomiting dark content, patient went to [facility] ER and she got CTabdomen that [...] % (Auto) (14.3 - 34.3 %) 24.1 [place] % (Auto) (5.1 - 10.4 %) 8.3 Eos % (Auto) (0.1 - 3.0 %) 1.0 Baso % (Auto) (0.1 - 1.0 %) 0.6 Neut # (Auto) (K/mm3) 5.9 Lymph # (Auto) (K/mm3) 2.2 [place] # (Auto) (K/mm3) 0.7 Eos # (Auto) (K/mm3) 0.09 Baso # (Auto) (K/mm3) 0.1 Miscellaneous Maternal Serum HCG <1 Urines Urine Color (YELLOW) YELLOW Urine Appearance (CLEAR) CLEAR Urine pH (5 - 9) 5.0 Ur Specific [place] (1.001 - 1.035) >1.035 H Urine Protein [...] patient's care and final disposition. [facility] Transferred at 1800Discussed Complaint(s) YesLaboratory Evaluation Lab evaluation discussedImaging Studies Ordered, not yet done Thomas Chamberlain 08/15/202111:HPI-General Illness GeneralInitial Greet Date/Time 08/15/20 1503 Physical Exam Physical ExamGenitourinary Text/Dict Notescuff intact, small area of erythema noted Re-Evaluation MDM ConsultationConsultation Referral/Consult Name Zulay Brooke MD Lace Stripper Called Hospitalist Requested Call Time 2112 Requested Call Date 08/15/20 Call Returned Call returned Call Returned Time 2112 Call Returned Date 08/15/20 Lace Stripper Will see patient at 1741 Addendum 1: 08/15/201805 by Leonardo Rader MD for Thomas Chamberlain MD Patient AddendumAddendum at 1806 Addendum 2: 08/15/201806 by Leonardo Rader MD Patient AddendumAddendum at 1807 Addendum 3: 08/15/201809 by Leonardo Rader MD Patient AddendumAddendum at 1810RPT #:[id number] OF REPORTEDEmergency department tldbmi6402-31-10N64:05:00F.[id number] -0326AVAvailable for patient izehELLTRVXOVLDSFU5161-03-23O35:13:50 2020-08-15 BDhyclkmvxy665856705518-58-60O01:05:00 [facility] 15:05:00 [facility] ([facility])EMERGENCY PROVIDER REPORTREPORT#:[id number] REPORT STATUS: SignedDATE:08/15/20 TIME: 1505 PATIENT: LONA MARIE UNIT #: [id number]#: [id number] ROOM/BED:AGE: 30 SEX: F PCP PHYS: No [...] X1ED STA 08/15 2011 DCr 12/10 IV 122011 Hydromorphone HCl 0.5 MG X1ED STA 12 1843 DCr 12/10 IV 12/10 1844 1904 Hydromorphone HCl 1 MG X1ED STA 08/15 1652 DCr 12/10 IV 12/10 1653 1724 Morphine Sulfate 4 MG X1ED STA 1210 1503 DCr 12/10 IV 12/10 1504 1553 [...] 1506 Temp 36.9 / 1506 Pulse 110 12/ 1506 Resp 20 12/10 1506 Last Documented: Result Date Time Pulse Ox 100 08/15 2030 B/P 120/70 / 2030 B/P Mean 86 08/15 2030 O2 Delivery Room air 08/15 2030 Temp 36.8 12/10 2030 Pulse 90 12/10 2030 Resp 18 08/15 2030 All vital [...] of vomiting dark content, patient went to [facility] ER and she got CTabdomen that [...] % (Auto) (14.3 - 34.3 %) 24.1 [place] % (Auto) (5.1 - 10.4 %) 8.3 Eos % (Auto) (0.1 - 3.0 %) 1.0 Baso % (Auto) (0.1 - 1.0 %) 0.6 Neut # (Auto) (K/mm3) 5.9 Lymph # (Auto) (K/mm3) 2.2 [place] # (Auto) (K/mm3) 0.7 Eos # (Auto) (K/mm3) 0.09 Baso # (Auto) (K/mm3) 0.1 Miscellaneous Maternal Serum HCG <1 Urines Urine Color (YELLOW) YELLOW Urine Appearance (CLEAR) CLEAR Urine pH (5 - 9) 5.0 Ur Specific [place] (1.001 - 1.035) >1.035 H Urine Protein [...] patient's care and final disposition. [facility] Transfer[facility] at 1800Discussed Complaint(s) YesLaboratory Evaluation Lab evaluation discussedImaging Studies Ordered, not yet done Thomas Chamberlain 08/15/202111:HPI-General Illness GeneralInitial Greet Date/Time 08/15/20 1503 Physical Exam Physical ExamGenitourinary Text/Dict Notescuff intact, small area of erythema noted Re-Evaluation MDM Re-Evaluation/Progress #1Text/Dict NoteDr. Edwardo at bedsideTime of Re-Eval 2237Re-Eval Status Unchanged ConsultationConsultation Referral/Consult Name Zulay Brooke MD Lace Stripper Called Hospitalist Requested Call Time 2112 Requested Call Date 08/15/20 Call Returned Call returned Call Returned Time 2112 Call Returned Date 08/15/20 Lace Stripper Will see patient at 1741 Addendum 1: 08/15/201805 by Leonardo Rader MD for Thomas Chamberlain MD Patient AddendumAddendum at 1806 Addendum 2: 08/15/201806 by Leonardo Rader MD Patient AddendumAddendum at 1807 Addendum 3: 08/15/200 by Leonardo Rader MD Patient AddendumAddendum at 1810RPT #:[id number] OF REPORTEDEmergency department hrjrwv1580-27-49Y21:05:00F.[id number] -0326AVAvailable for patient cohlIZURPBOBMEOFGT6157-79-82I82:12:35 2020-08-15 QLzwmovpsct928944339781-21-06M53:05:00 [facility] 15:05:00 [facility])EMERGENCY PROVIDER REPORTREPORT#:[id number] REPORT STATUS: SignedDATE:08/15/20 TIME: 1505 PATIENT: LONA MARIE UNIT #: [id number]#: [id number] ROOM/BED:AGE: 30 SEX: F PCP PHYS: No [...] 08/15 2109 DC 08/15 IV 08/15 2110 221 Hydromorphone HCl 0.5 MG X1ED STA 08/15 2011 DCr /10 IV 08/15 Hydromorphone HCl 0.5 MG X1ED STA 12/10 1843 DCr 12/10 IV 12/ 1844 1904 [...] X1ED STA 12 1503 DC 12/10 IV 12 1504 1553 Patient Discharge Departure Vital Signs/ConditionVital SignsFirst Documented: Result Date Time Pulse Ox 100 08/15 1506 B/P 163/92 / 1506 B/P Mean 115 / 1506 O2 Delivery Room air 08/15 1506 Temp 36.9 12/ 1506 Pulse 110 12/ 1506 Resp 20 12/ 1506 Last Documented: Result Date Time Pulse Ox 100 08/15 2030 B/P 120/70 / 2030 B/P Mean 86 12/ 2030 O2 Delivery Room air 08/15 2030 Temp 36.8 12/ 2030 Pulse 90 12/ 2030 Resp 18 / 2030 All vital signs available at the [...] of vomiting dark content, patient went to [facility] ER and she got CTabdomen that [...] Pulse 110 08/15 150 Resp 20 08/15 150 Last Documented: Result [...] % (Auto) (14.3 - 34.3 %) 24.1 [place] % (Auto) (5.1 - 10.4 %) 8.3 Eos % (Auto) (0.1 - 3.0 %) 1.0 Baso % (Auto) (0.1 - 1.0 %) 0.6 Neut # (Auto) (K/mm3) 5.9 Lymph # (Auto) (K/mm3) 2.2 [place] # (Auto) (K/mm3) 0.7 Eos # (Auto) (K/mm3) 0.09 Baso # (Auto) (K/mm3) 0.1 Miscellaneous Maternal Serum HCG <1 Urines Urine Color (YELLOW) YELLOW Urine Appearance (CLEAR) CLEAR Urine pH (5 - 9) 5.0 Ur Specific [place] (1.001 - 1.035) >1.035 H Urine Protein [...] RARE Recent Impressions:ULTRASOUND - US TRANSVAGINAL W/PELVIS 12/10 1751 Report Impression - Status: SIGNED Entered: [...] patient's care and final disposition. [facility] 1800Discussed Complaint(s) YesLaboratory Evaluation Lab evaluation discussedImaging Studies Ordered, not yet done Thomas Chamberlain 08/15/20 2112:HPI-General Illness GeneralInitial Greet Date/Time 08/15/20 1503 Physical Exam Physical ExamGenitourinary Text/Dict Notescuff intact, small area of erythema noted, no bleeding Re-Evaluation MDM Re-Evaluation/Progress #1Text/Dict NoteDrMell Brooke at bedsideTime of Re-Eval 2237Re-Eval Status Unchanged ConsultationConsultation Referral/Consult Name Zulay Brooke MD [facility] Called Hospitalist Requested Call Time 2112 Requested Call Date 08/15/20 Call Returned Call returned Call Returned Time 2112 Call Returned Date 08/15/20 [facility]pper Will see patient Free Text MDM NotesFree [...] Leonardo Rader MD Patient AddendumAddendum at 1810RPT #:[id number] OF REPORTEDEmergency department ddlize0540-97-22H49:05:00F.[id number] -0326AVAvailable for patient oapcFZWGDLUESNCJNE0886-05-39F59:21:12 2020-08-15 HCdgbsblghs115668104243-36-84L94:05:00 HCAWH 15:05:00 [facility])EMERGENCY PROVIDER REPORTREPORT#:[id number] REPORT STATUS: SignedDATE:08/15/20 TIME: 1505 PATIENT: LONA MARIE UNIT #: [id number]#: [id number] [facility] S[facility]: F PCP PHYS: Zulay Brooke [...] STA 08/15 2109 DC 12/10 IV 12 211 2218 Hydromorphone HCl 0.5 MG X1ED STA 08/15 2011 DCr 12/10 IV 08/15 Hydromorphone HCl 0.5 MG X1ED STA 08/15 1843 DCr 12/10 IV 12/10 184 1904 Hydromorphone HCl 1 MG X1ED STA 08/15 1652 DCr 12/10 IV 1210 1653 1724 Morphine Sulfate 4 MG X1ED STA 08/15 1503 DCr 12/10 IV 12/ 1504 1553 Electrolytic, Caloric, And Jair Sig/Arina Start time Last Medication Dose Route Stop Time Status Admin Sodium Chloride 1,000 ML X1ED STA 08/15 1653 DC 12/10 IV / 1654 1726 Sodium Chloride 1,000 ML X1ED [...] of vomiting dark content, patient went to [facility] ER and she got CTabdomen that [...] % (Auto) (14.3 - 34.3 %) 24.1 [place] % (Auto) (5.1 - 10.4 %) 8.3 Eos % (Auto) (0.1 - 3.0 %) 1.0 Baso % (Auto) (0.1 - 1.0 %) 0.6 Neut # (Auto) (K/mm3) 5.9 Lymph # (Auto) (K/mm3) 2.2 [place] # (Auto) (K/mm3) 0.7 Eos # (Auto) (K/mm3) 0.09 Baso # (Auto) (K/mm3) 0.1 Miscellaneous Maternal Serum HCG <1 Urines Urine Color (YELLOW) YELLOW Urine Appearance (CLEAR) CLEAR Urine pH (5 - 9) 5.0 Ur Specific [place] (1.001 - 1.035) >1.035 H Urine Protein [...] Report Impression - Status: SIGNED Entered: 08/15/2020 6126 IMPRESSION:1. Abnormal small volume free pelvic fluid.2. Nonvisualization of the uterus and ovaries. SL: BILL-HImpression By: Jose L - Rubin Hairston MDULTRASOUND - US PELVIS COMPLETE 08/15 175 Report Impression - Status: SIGNED Entered: 08/15/2020 1837 IMPRESSION:1. Abnormal small volume free pelvic fluid.2. Nonvisualization of the uterus and ovaries. SL: SG-HImpression By: Jose L - Rubin Hairston MD Lab Imaging StatementLaboratory [...] patient's care and final disposition. [facility] Transfer[facility] at 1800Discussed Complaint(s) YesLaboratory Evaluation Lab evaluation discussedImaging Studies Ordered, not yet done Thomas Chamberlain 08/15/202:HPI-General Illness GeneralInitial Greet Date/Time 08/15/20 1503 Physical Exam Physical ExamGenitourinary Text/Dict Notescuff intact, small area of erythema noted, no bleeding Re-Evaluation MDM Re-Evaluation/Progress #1Text/Dict NoteDr. [place] at bedsideTime of Re-Eval 2238Re-Eval Status Unchanged ConsultationConsultation Referral/Consult Name Zulay Brooke MD Lace Stripper Called Hospitalist Requested Call Time 2112 Requested Call Date 08/15/20 Call Returned Call returned Call Returned Time 2112 Call Returned Date 08/15/20 Lace Stripper Will see patient Free Text MDM NotesFree [...] MD Patient AddendumAddendum at 1807 Addendum 3: 08/15/200 by Leonardo Rader MD Patient AddendumAddendum at 1810RPT #:[id number] OF REPORTEDEmergency department uzpbwz5209-58-30C84:05:00F.[id number] -0326AVAvailable for patient cvcqNAMZVLGUMGAEJE0952-70-05S69:17:59 2020-08-15 FQmogbcqtuq689444072809-48-26O48:05:00 HCAWH 15:05:00 [facility])EMERGENCY PROVIDER REPORTREPORT#:[id number] REPORT STATUS: SignedDATE:08/15/20 TIME: 150 PATIENT: LONA MARIE UNIT #: [id number]#: [id number] [facility] S[facility]: F PCP PHYS: Zulay Brooke [...] Seizure disorder. Past Surgical History:Reports: Appendectomy. [facility] ED CourseMedication(s) OrderedMedication(s) Ordered:Central Nervous System Agents Sig/Arina Start time Last Medication Dose Route Stop Time Status Admin Fentanyl Citrate 50 MCG X1ED STA 08/15 2109 DC 12/10 IV 08/15 2110 2218 Hydromorphone HCl 0.5 MG X1ED STA 08/15 2011 DCr 12/10 IV 08/15 Hydromorphone HCl 0.5 MG X1ED STA 12/ 1843 DCr 12/ IV 12/ 1844 1904 Hydromorphone HCl 1 MG X1ED STA 08/15 1652 DCr 12/ IV 12/10 1653 1724 Morphine Sulfate 4 [...] Admin Ondansetron HCl 4 MG X1ED STA 12/ 1503 DC 12/10 IV 12/10 1504 1553 [...] the upper abdomen, pain is intense, 10/10 associatedwith 2 episodes of vomiting dark content, patient went to [facility] ER and she got CTabdomen that [...] % (Auto) (14.3 - 34.3 %) 24.1 [place] % (Auto) (5.1 - 10.4 %) 8.3 Eos % (Auto) (0.1 - 3.0 %) 1.0 Baso % (Auto) (0.1 - 1.0 %) 0.6 Neut # (Auto) (K/mm3) 5.9 Lymph # (Auto) (K/mm3) 2.2 [place] # (Auto) (K/mm3) 0.7 Eos # (Auto) (K/mm3) 0.09 Baso # (Auto) (K/mm3) 0.1 Miscellaneous Maternal Serum HCG <1 Urines Urine Color (YELLOW) YELLOW Urine Appearance (CLEAR) CLEAR Urine pH (5 - 9) 5.0 Ur Specific [place] (1.001 - 1.035) >1.035 H Urine Protein [...] B/P 134/71 08/16 0000 B/P Mean 92 12/11 0000 O2 Delivery Room air 08/16 Temp [...] patient's care and final disposition. [facility] Transferred at 1800Discussed Complaint(s) YesLaboratory Evaluation Lab evaluation discussedImaging Studies Ordered, not yet done Thomas Chamberlain 08/15/202111:Physical Exam Physical ExamGenitourinary Text/Dict Notescuff intact, small area of erythema noted, no bleeding Re-Evaluation MDM Re-Evaluation/Progress #1Text/Dict TeodorarMell Brooke at bedsideTime of Re-Eval 2237Re-Eval Status Unchanged ConsultationConsultation Referral/Consult Name Zulay Brooke MD Lace Stripper Called Hospitalist Requested Call Time 2112 Requested Call Date 08/15/20 Call Returned Call returned Call Returned Time 2112 Call Returned Date 08/15/20 Lace Stripper Will see patient Free Text MDM NotesFree [...] Leonardo Rader MD Patient AddendumAddendum at 1810RPT #:[id number] OF REPORTEDEmernorth metro medical center department cmmrvu7935-45-12F34:05:00F.[id number] -0326AVAvailable for patient rwooRXMICNSWLNJQSR3023-51-67Q00:59:49 2020-08-15 WYaldoojuvt372337942208-98-71I74:05:00 [facility])EMERGENCY PROVIDER REPORTREPORT#:[id number] REPORT STATUS: SignedDATE:08/15/20 TIME: 1505 PATIENT: LONA MARIE UNIT #: [id number]#: [id number] [address] SEX: F PCP PHYS: Zulay Brooke MDSERVICE AUTHOR: Andressa Razo MD * ALL edits or amendments must be made on the electronic/computer document * See AddendumAndressa Razo I 08/15/20 1505:HPI-General Illness GeneralInitial Greet Date/Time 08/15/20 1503 Provider in Triage Grezoran NoteI have greeted and performed a focused [...] 08/15 2011 DCr 12/10 IV 1210 2011 204 Hydromorphone HCl 0.5 MG X1ED STA 12 1843 DCr 12/10 IV 12/10 1844 1904 Hydromorphone HCl 1 MG X1ED STA 12 1652 DCr 12/ IV 12 1653 1724 Morphine Sulfate 4 MG X1ED STA 08/15 1503 DCr 12/ IV 12 1504 1553 Electrolytic, Caloric, And [...] 1503 DC 12/10 IV 12 1504 1553 Ashley Rader 08/15/20 1534:HPI-General Illness [...] of vomiting dark content, patient went to [facility] ER and she got CTabdomen that [...] % (Auto) (14.3 - 34.3 %) 24.1 [place] % (Auto) (5.1 - 10.4 %) 8.3 Eos % (Auto) (0.1 - 3.0 %) 1.0 Baso % (Auto) (0.1 - 1.0 %) 0.6 Neut # (Auto) (K/mm3) 5.9 Lymph # (Auto) (K/mm3) 2.2 [place] # (Auto) (K/mm3) 0.7 Eos # (Auto) (K/mm3) 0.09 Baso # (Auto) (K/mm3) 0.1 Miscellaneous Maternal Serum HCG <1 Urines Urine Color (YELLOW) YELLOW Urine Appearance (CLEAR) CLEAR Urine pH (5 - 9) 5.0 Ur Specific [place] (1.001 - 1.035) >1.035 H Urine Protein [...] patient's care and final disposition. [facility] Transferred at 1800Discussed Complaint(s) YesLaboratory Evaluation Lab evaluation discussedImaging Studies Ordered, not yet done Thomas Chamberlain 08/15/202111:Physical Exam Physical ExamGenitourinary Text/Dict Notescuff intact, small area of erythema noted, no bleeding Re-Evaluation MDM Re-Evaluation/Progress #1Text/Dict TeodorarMell Brooke at bedsideTime of Re-Eval 2237Re-Eval Status Unchanged ConsultationConsultation Referral/Consult Name Zulay Brooke MD Lace Stripper Called Hospitalist Requested Call Time 2112 Requested Call Date 08/15/20 Call Returned Call returned Call Returned Time 2112 Call Returned Date 08/15/20 Lace Stripper Will see patient Free Text MDM NotesFree [...] Leonardo Rader MD Patient AddendumAddendum at 1810RPT #:[id number] OF REPORTEDEmernorth metro medical center department raltwl8892-13-34U59:05:00F.[id number] -0326AVAvailable for patient pmmzDENBGURHORUWLD8011-22-89A97:44:46 2020-08-05 [id number]:32:00 HCACL 21:32:00 [facility] PROVID[facility] REPORTREPORT#:[id number] REPORT STATUS: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
--- NOTE | 2023-07-28 17:13 | ER ---
Nurse's Notes [facility] Name: Lona Marie Age: 33 yrs Sex: Female : 1990 Arrival Date: 07/28/2023 Time: 15:15 Bed 18 Private MD: Diagnosis: Anxiety disorder, unspecified Presentation: 07/28 15:18 Chief complaint: EMS states: toned out for chest pain. Patient was seen in ER yesterday me1 for the same thing. Recent dx of lump in L breast w/lumpectomy scheduled for next week. Coronavirus screen: Vaccine status: Patient reports receiving the 2nd dose of the covid vaccine. Ebola Screen: No symptoms or risks identified at this time. Initial Sepsis Screen: Does the patient meet any 2 criteria? HR > 90 bpm. No. Patient's initial sepsis screen is negative. Does the patient have a suspected source of infection? No. Patient's initial sepsis screen is negative. Risk Assessment: Do you want to hurt yourself or someone else? Patient reports no desire to harm self or others. Onset of symptoms is unknown. 15:18 Method Of Arrival: EMS: [place] [id number] 15:18 Acuity: SMITH 4 me1 Triage Assessment: 15:27 General: Appears uncomfortable, well groomed, well developed, well nourished, Behavior me1 is cooperative, appropriate for age, anxious, restless, Reports Pain 9/10 to left breast "pressure" that radiates to left shoulder blade. Anxious, tearful. Pain: Complains of pain in left breast Pain radiates to back Pain currently is 9 out of 10 on a pain scale. Quality of pain is described as pressure, Pain began Is continuous. Neuro: Level of Consciousness is awake, alert, obeys commands, Oriented to person, place, time, situation, Appropriate for age. Cardiovascular: Capillary refill < 3 seconds Patient's skin is warm and dry. Respiratory: Airway is patent Respiratory effort is even, unlabored, Respiratory pattern is regular, symmetrical. 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 - Social history:: Smoking status: Patient reports the use of cigarette tobacco products, smokes one pack cigarettes per day. - Family history:: not pertinent. - Hospitalizations: : No recent hospitalization is reported. Screenin:31 [facility] ED Fall Risk Assessment (Adult) History of falling in the last 3 months, az1 including since admission No falls in past 3 months (0 pts) Confusion or Disorientation No (0 pts) Intoxicated or Sedated No (0 pts) Impaired Gait No (0 pts) Mobility Assist Device Used No (0 pt) Altered Elimination No (0 pt) Score/Fall Risk Level 0 - 2 = Low Risk Maintained a safe environment, Provided non-skid footwear, Hourly rounding (assess needs \\T\\ fall precautionary measures) done. Abuse screen: Denies threats or abuse. Nutritional screening: No deficits noted. Tuberculosis screening: No symptoms or risk factors identified. Assessment: 15:31 General: See triage assessment. . me1 Vital Signs: 15:18 BP 153 / 84; Pulse 105; Resp 11; Temp 98.2; Pulse Ox 100% on R/A; Weight 67.59 kg; me1 Height 5 ft. 3 in. ; Pain 9/10; 15:33 BP 118 / 78; Pulse 92; Resp 14; Pulse Ox 100% on R/A; me1 16:01 BP 121 / 92; Pulse 88; Resp 20; Pulse Ox 100% on R/A; me1 16:55 BP 116 / 54; Pulse 80; Resp 17; Pulse Ox 100% ; me1 15:18 Body Mass Index 26.39 (67.59 kg, 160.02 cm) az1 15:18 Pain Scale: Adult [facility] [place], [place] ED Course: 15:15 Patient arrived in ED. rn 15:15 Jose Roberto Baker MD is Attending Physician. rn 15:18 Eboni Huang, HO is Primary Nurse. me1 15:26 Triage completed. me1 15:27 Arm band placed on Patient placed in an exam room. me1 15:31 Patient has correct armband on for positive identification. Placed in gown. Bed in low me1 position. Call light in reach. Provided Education on: POC. Verbalized understanding. . 15:31 No provider procedures requiring assistance completed. me1 17:26 IV discontinued, intact, bleeding controlled, No redness/swelling at site. Pressure me1 dressing applied. Administered Medications: 15:42 Drug: Diazepam PO 5 mg PO once Route: PO; me1 16:22 Follow up: Response: No adverse reaction me1 Medication: 15:31 VIS not applicable for this client. me1 Outcome: 17:13 Discharge ordered by MD. rn 17:26 Discharged to home ambulatory, me1 17:26 Condition: stable 17:26 Discharge instructions given to patient, Instructed on discharge instructions, follow up and referral plans. Demonstrated understanding of instructions, follow-up care, 17:27 Patient left the ED. me1 Signatures: Jose Roberto Baker MD MD rn Eboni Huang, HO RN me1 Corrections: (The following items were deleted from the chart) 15:42 15:42 General: Attempted to call 4th floor for report. No answer on any line. . me1 me1
--- NOTE | 2023-07-28 17:14 | EDPHYS ---
Physician Documentation [facility] Name: Lona Marie Age: 33 yrs Sex: Female : 1990 Arrival Date: 07/28/2023 Time: 15:15 Bed 18 Private MD: ED Physician Jose Roberto Baker HPI: 07/28 15:17 This 33 yrs old Female presents to ER via Unassigned with complaints of anxiety, chest rn pain. 15:17 The patient or guardian reports chest pain that is located primarily in the anterior rn chest wall, left. The pain does not radiate. Associated signs and symptoms: Pertinent negatives: abdominal pain, diaphoresis, palpitations, shortness of breath, syncope, vomiting. The chest pain is described as aching. Modifying factors: The symptoms are alleviated by nothing. the symptoms are aggravated by emotionally stressful situations. Severity of pain: At its worst the pain was moderate in the emergency department the pain has improved. The patient has experienced similar episodes in the past. Patient reports was driving home from work when started having another panic attack. In patient's own words was "full-blown panic attack this time ". Patient states psychiatrist has not changed her back to Valium. Seen here yesterday for this as well. States feels fine and then has a panic attack. No trauma. Associated with left-sided chest tightness. No shortness of breath. Took her clonazepam and his helps but not resolved her anxiety. Feels much better than when it started. States seen here multiple times for this and has had normal EKGs. No known cardiac problems.. 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 - Social history:: Smoking status: Patient reports the use of cigarette tobacco products, smokes one pack cigarettes per day. - Family history:: not pertinent. - Hospitalizations: : No recent hospitalization is reported. ROS: 15:17 Constitutional: Negative for fever, chills, and weight loss, Cardiovascular: Negative rn for palpitations, and edema, Respiratory: Negative for shortness of breath, cough, wheezing, and pleuritic chest pain, Abdomen/GI: Negative for abdominal pain, nausea, vomiting, diarrhea, and constipation, MS/Extremity: Negative for injury and deformity, Skin: Negative for injury, rash, and discoloration, Neuro: Negative for headache, weakness, numbness, tingling, and seizure, Exam: 15:17 Constitutional: This is a well developed, well nourished patient who is awake, alert, rn tearful Head/Face: Normocephalic, atraumatic. Cardiovascular: Regular rate and rhythm. No pulse deficits. Respiratory: No increased work of breathing, no retractions or nasal flaring. Skin: Warm, dry MS/ Extremity: Pulses equal, no cyanosis. Neuro: Awake and alert, GCS 15 15:48 ECG was reviewed by the Attending Physician. rn Vital Signs: 15:18 BP 153 / 84; Pulse 105; Resp 11; Temp 98.2; Pulse Ox 100% on R/A; Weight 67.59 kg; me1 Height 5 ft. 3 in. ; Pain 9/10; 15:33 BP 118 / 78; Pulse 92; Resp 14; Pulse Ox 100% on R/A; me1 16:01 BP 121 / 92; Pulse 88; Resp 20; Pulse Ox 100% on R/A; me1 16:55 BP 116 / 54; Pulse 80; Resp 17; Pulse Ox 100% ; me1 15:18 Body Mass Index 26.39 (67.59 kg, 160.02 cm) me1 15:18 Pain Scale: Adult me1 MDM: 15:16 Patient medically screened. rn 17:12 Differential diagnosis: anxiety, chest wall pain, esophagitis, gastritis, pleurisy. rn Data reviewed: vital signs, nurses notes, old medical records, EKG, and as a result, I will discharge patient. Counseling: I had a detailed discussion with the patient and/or guardian regarding the historical points, exam findings, and any diagnostic results supporting the discharge/admit diagnosis, the need for outpatient follow up, to return to the emergency department if symptoms worsen or persist or if there are any questions or concerns that arise at home. Response to treatment: the patient's symptoms have markedly improved after treatment, and as a result, I will discharge patient. Special discussion: I discussed with the patient/guardian in detail that at this point there is no indication for admission to the hospital. It is understood, however, that if the symptoms persist or worsen the patient needs to return immediately for re-evaluation. Based on the history and exam findings, there is no indication for further emergent testing or inpatient evaluation. I discussed with the patient/guardian the need to see the primary care provider for further evaluation of the symptoms. I discussed with the patient/guardian the need to see the psychiatrist for further evaluation of the symptoms. ED course: Had long discussion with patient regarding anxiety and pain control and chronic management. I feel like patient has a better understanding and set better expectations. Will DC home with return precautions. Has her clonazepam and has been in contact with her psychiatrist.. 07/28 15:16 Order name: EKG; Complete Time: 15:17 rn 07/28 15:16 Order name: EKG - Nurse/Tech; Complete Time: 15:42 rn EC:48 Rate is 90 beats/min. Rhythm is regular. QRS [place] is Normal. OR interval is normal. QRS rn interval is normal. QT interval is normal. No Q waves. T waves are Normal. No ST changes noted. Clinical impression: Normal ECG. Interpreted by me. Reviewed by me. Administered Medications: 15:42 Drug: Diazepam PO 5 mg PO once Route: PO; me1 16:22 Follow up: Response: No adverse reaction me1 Disposition Summary: 07/28/23 17:13 Discharge Ordered Notes: Location: Home rn Problem: chronic rn Symptoms: have improved rn Condition: Stable rn Diagnosis - Anxiety disorder, unspecified rn Followup: rn - With: Private Physician - When: As needed - Reason: Recheck today's complaints, Re-evaluation by your physician Discharge Instructions: - Discharge Summary Sheet rn - Panic Attack rn - Generalized Anxiety Disorder, Adult rn - Managing Anxiety, Adult rn Forms: - Medication Reconciliation Form rn - Thank You Letter 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
[2023-07-28 17:51] VITALS: TEMP 98.2; O2SAT 100
[2023-07-28 17:55] VITALS: BP 116/54
--- NOTE | 2023-08-02 17:00 | EKG ---
Test Date: 2023-07-28 Test Time: 15:37:37 Data Compiler: MEASUREMENT RESULTS: Intervals: Rate: 90 NM: 142 QRSD: 70 QT: 344 QTc: 420 Victor: P: 52 NM: 142 QRS: 86 T: 55 INTERPRETIVE STATEMENTS: Normal sinus rhythm Normal ECG Compared to ECG 07/27/2023 16:13:42 Sinus arrhythmia no longer present Electronically Signed On 08-02-23 16:54:13 ACCOUNTANT TAX by Alan Owen
== END 2023-07-28 17:27 | disposition home or self-care (01) ==
LOC: ER 15:15
DX: F41.9 Anxiety disorder, unspecified (principal); Z88.0 Allergy status to penicillin; Z88.1 Allergy status to other antibiotic agents; Z88.5 Allergy status to narcotic agent; Z91.040 Latex allergy status; Z91.048 Other nonmedicinal substance allergy status
CPT/HCPCS: 93005; 99284

== ENCOUNTER 2023-08-06 13:19 | Emergency (ER) | payer OTHER ==
[2023-08-06] MEDS ORDERED: DIAZEPAM 5 MG TABLET ONE (14:18)
--- NOTE | 2023-08-06 14:57 | ER ---
Nurse's Notes [facility] Name: Lona Marie Age: 33 yrs Sex: Female : 1990 Arrival Date: 08/06/2023 Time: 13:19 Bed IW2 Private MD: Diagnosis: Anxiety disorder, unspecified Presentation: 08/06 14:00 Chief complaint: Severe anxiety x 2 days, has followup with psychiatrist next week for hb medication change. Coronavirus screen: At this time, the client does not indicate any symptoms associated with coronavirus-19. Ebola Screen: No symptoms or risks identified at this time. Initial Sepsis Screen: Does the patient meet any 2 criteria? No. Patient's initial sepsis screen is negative. Does the patient have a suspected source of infection? No. Patient's initial sepsis screen is negative. Risk Assessment: Do you want to hurt yourself or someone else? Patient reports no desire to harm self or others. Onset of symptoms was August 05, 2023. 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 - Social history:: Smoking status: Patient denies any tobacco usage or history of. Screenin:02 [facility] ED Fall Risk Assessment (Adult) History of falling in the last 3 months, ld1 including since admission No falls in past 3 months (0 pts). Abuse screen: Denies threats or abuse. Denies injuries from another. Nutritional screening: No deficits noted. Tuberculosis screening: No symptoms or risk factors identified. Assessment: 15:02 Reassessment: Patient appears in no apparent distress at this time. No changes from ld1 previously documented assessment. Patient and/or family updated on plan of care and expected duration. Pain level reassessed. Patient is alert, oriented x 3, equal unlabored respirations, skin warm/dry/pink. General: Appears in no apparent distress. comfortable, Behavior is cooperative, appropriate for age. Pain: Denies pain. Neuro: Level of Consciousness is awake, alert, obeys commands, Oriented to person, place, time, situation. Cardiovascular: Capillary refill < 3 seconds Patient's skin is warm and dry. Respiratory: Airway is patent Respiratory effort is even, unlabored. Vital Signs: 14:00 BP 154 / 98; Pulse 83; Resp 16; Temp 97.5; Pulse Ox 100% on R/A; hb 15:02 BP 149 / 89; Pulse 76; Resp 18; Pulse Ox 100% on R/A; ld1 ED Course: 13:19 Patient arrived in ED. rg4 13:32 Stanislav Nichole DO is Attending Physician. ms3 14:02 Triage completed. hb 14:03 Arm band placed on. hb 14:55 Frank Shelton MD is Referral Physician. ms3 15:02 Patient has correct armband on for positive identification. Call light in reach. Pulse ld1 ox on. NIBP on. Door closed. Noise minimized. 15:02 No provider procedures requiring assistance completed. Patient did not have IV access ld1 during this emergency room visit. Administered Medications: 14:05 Drug: Diazepam PO 5 mg PO once Route: PO; hb Medication: 15:02 VIS not applicable for this client. ld1 Outcome: 14:57 Discharge ordered by . ms3 15:02 Discharged to home ambulatory, ld1 15:02 Condition: stable 15:02 Discharge instructions given to patient, Instructed on discharge instructions, follow up and referral plans. Demonstrated understanding of instructions, follow-up care, 15:03 Patient left the ED. ld1 Signatures: Codie Navarro RN HO Candy Rodríguez rg4 Stanislav Nichole DO DO ms3 Zaria Nichole RN RN ld1
--- NOTE | 2023-08-06 14:58 | EDPHYS ---
Physician Documentation [facility] Name: Lona Winter Age: 33 yrs Sex: Female : 1990 Arrival Date: 08/06/2023 Time: 13:19 Bed IW2 Private MD: ED Physician Stanislav Nichole HPI: 08/06 14:07 This 33 yrs old Female presents to ER via Ambulatory with complaints of Anxiety. ms3 14:07 33-year-old female with past medical history of anxiety presents to the emergency az3 department for anxiety. Patient states her anxiety medications were changed on July 08, 2023 and she has an appointment with psychiatry on Wednesday. Patient states she has been unable to sleep. Patient states he has been under stress, is moving, and is supposed to have surgery. Patient states she took her clonazepam without relief. Patient states she has previously been seen in the emergency department and given diazepam which helped her symptoms.. 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 - Social history:: Smoking status: Patient denies any tobacco usage or history of. ROS: 14:07 Constitutional: Negative for fever, and chills. Eyes: Negative for injury, pain, ms3 redness, and discharge, Cardiovascular: Negative for chest pain, and palpitations. Respiratory: Negative for shortness of breath, cough, wheezing, and pleuritic chest pain, Abdomen/GI: Negative for abdominal pain, nausea, vomiting, diarrhea, and constipation, Skin: Negative for injury, rash, and discoloration, 14:07 Psych: Positive for anxiety, 14:07 All other systems are negative, Exam: 14:07 Constitutional: This is a well developed, well nourished patient who is awake, alert, ms3 and in no acute distress. Head/Face: Normocephalic, atraumatic. Neck: Trachea midline, no cervical lymphadenopathy. Supple, full range of motion without nuchal rigidity, or vertebral point tenderness. No Meningismus. Chest/axilla: Normal chest wall appearance and motion. Nontender with no deformity. Cardiovascular: Regular rate and rhythm with a normal S1 and S2. No gallops, murmurs, or rubs. Normal PMI, no JVD. No pulse deficits. Respiratory: Lungs have equal breath sounds bilaterally, clear to auscultation and percussion. No rales, rhonchi or wheezes noted. No increased work of breathing, no retractions or nasal flaring. Abdomen/GI: Soft, non-tender, with normal bowel sounds. No distension or tympany. No guarding or rebound. No evidence of tenderness throughout. Skin: Warm, dry with normal turgor. Normal color with no rashes, no lesions, and no evidence of cellulitis. 14:07 Psych: Behavior/mood is anxious, Affect is calm, Oriented to person, place, time, Patient has no thoughts/intents to harm self or others. Judgement / Insight is normal. Memory is normal. Vital Signs: 14:00 BP 154 / 98; Pulse 83; Resp 16; Temp 97.5; Pulse Ox 100% on R/A; hb 15:02 BP 149 / 89; Pulse 76; Resp 18; Pulse Ox 100% on R/A; ld1 MDM: 13:43 Patient medically screened. ms3 14:07 Differential diagnosis: Anxiety. ms3 14:57 Data reviewed: vital signs, nurses notes, and as a result, I will discharge patient. I ms3 considered the following discharge prescriptions or medication management in the emergency department Medications were administered in the Emergency Department. See MAR. Counseling: I had a detailed discussion with the patient and/or guardian regarding the historical points, exam findings, and any diagnostic results supporting the discharge/admit diagnosis, the need for outpatient follow up, to return to the emergency department if symptoms worsen or persist or if there are any questions or concerns that arise at home. Response to treatment: the patient's symptoms have markedly improved after treatment. Special discussion: I discussed with the patient/guardian in detail that at this point there is no indication for admission to the hospital. It is understood, however, that if the symptoms persist or worsen the patient needs to return immediately for re-evaluation. ED course: On reevaluation patient symptoms improved, patient is alert and oriented x4, no apparent distress, nontoxic-appearing. Patient to follow-up with psychiatry as scheduled. Patient understands and agrees with plan. All questions were answered. Return precautions discussed include worsening symptoms, or any other concerns. Administered Medications: 14:05 Drug: Diazepam PO 5 mg PO once Route: PO; hb Disposition Summary: 08/06/23 14:57 Discharge Ordered Notes: Location: Home ms3 Condition: Stable ms3 Diagnosis - Anxiety disorder, unspecified ms3 Followup: ms3 - With: Frank Shelton MD - When: 2 - 3 days - Reason: Recheck today's complaints Discharge Instructions: - Discharge Summary Sheet ms3 - Panic Attack, [id number] ms3 - Managing Anxiety, Adult ms3 Forms: - Medication Reconciliation Form ms3 - Thank You Letter ms3 - Antibiotic Education ms3 - Prescription Opioid Use ms3 - Patient Portal Instructions ms3 - Leadership Thank You Letter ms3 Signatures: Codie Navarro, RN RN Stanislav Nichole DO DO ms3
[2023-08-06 16:17] VITALS: TEMP 97.5; O2SAT 100
[2023-08-06 16:18] VITALS: BP 149/89
== END 2023-08-06 15:03 | disposition home or self-care (01) ==
LOC: ER 13:19
DX: F41.9 Anxiety disorder, unspecified (principal); Z88.0 Allergy status to penicillin; Z88.1 Allergy status to other antibiotic agents; Z88.5 Allergy status to narcotic agent; Z88.8 Allergy status to other drugs, medicaments and biological substances; Z91.040 Latex allergy status; Z91.048 Other nonmedicinal substance allergy status
CPT/HCPCS: 99283

== ENCOUNTER 2023-08-15 15:58 | Emergency (ER) | payer OTHER ==
[2023-08-15 17:59] LABS: Absolute Lymphocytes (CBC) 3.9 K/uL (0.7-4.9); Hematocrit 39.9 % (36.0-45.0); Lymphocytes % 36.1 % (15.3-44.8); MCV 92.7 fL (80-100); MPV 7.1 fL (7.6-11.3); Platelets 357 thou/uL (152-406)
[2023-08-15 18:00] LABS: Specific Gravity < 1.005 (1.005-1.030)
[2023-08-15 18:16] LABS: Albumin 4.4 g/dL (3.4-5.0); Bilirubin Total 0.3 mg/dL (0.2-1.0); Potassium 3.9 mEq/L (3.5-5.1); Protein, Total 8.2 g/dL (6.4-8.2)
--- NOTE | 2023-08-15 18:45 | RAD REPORT ---
EXAM DESCRIPTION: CTAbdomen Pelvis W Contrast - 08/15/2023 6:19 pm CLINICAL HISTORY: Abdominal pain. ABD PAIN TECHNIQUE: Biphasic CT imaging of the abdomen and pelvis was performed with 100 ml non-ionic IV cont rast. All CT scans are performed using dose optimization technique as appropriate and may include automated exposure control or mA/KV adjustment according to patient size. FINDINGS: The lung bases are clear. The liver, spleen, pancreas, adrenal glands and kidneys are within normal limits. No bowel obstruction, free air, free fluid or abscess. Appendectomy. No evidence of significant lym phadenopathy. No suspicious bony findings. IMPRESSION: No acute intra-abdominal or pelvic finding.
--- NOTE | 2023-08-15 18:54 | ER ---
Nurse's Notes [facility] Name: Lona Marie Age: 33 yrs Sex: Female : 1990 Arrival Date: 08/15/2023 Time: 15:58 Bed 16 Private MD: Diagnosis: Upper abdominal pain, unspecified;Elevated blood-pressure reading, without diagnosis of hypertension Presentation: 08/15 16:59 Chief complaint: Patient states: Abdominal pain for a couple days, however today she nj1 throw up blood. Pain has worsen ever since she got to hospital, slight nauseous. Coronavirus screen: Vaccine status: Patient reports receiving the 2nd dose of the covid vaccine. Ebola Screen: Patient denies travel to an Ebola-affected area in the 21 days before illness onset. Initial Sepsis Screen: Does the patient meet any 2 criteria? No. Patient's initial sepsis screen is negative. Does the patient have a suspected source of infection? No. Patient's initial sepsis screen is negative. Risk Assessment: Do you want to hurt yourself or someone else? Patient reports no desire to harm self or others. Onset of symptoms was August 12, 2023. 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 - Social history:: Smoking status: Patient reports the use of cigarette tobacco products, smokes one-half pack cigarettes per day. Screenin:09 [facility] ED Fall Risk Assessment (Adult) History of falling in the last 3 months, mb9 including since admission No falls in past 3 months (0 pts) Confusion or Disorientation No (0 pts) Intoxicated or Sedated No (0 pts) Impaired Gait No (0 pts) Mobility Assist Device Used No (0 pt) Altered Elimination No (0 pt) Score/Fall Risk Level 0 - 2 = Low Risk Oriented to surroundings, Maintained a safe environment, Educated pt \T\ family on fall prevention, incl call for assistance when getting out of bed. Abuse screen: Denies threats or abuse. Nutritional screening: No deficits noted. Tuberculosis screening: No symptoms or risk factors identified. Assessment: 18:00 General: Appears in no apparent distress. Behavior is calm, cooperative. Pain: mb9 Complains of pain in epigastric area Pain does not radiate. Quality of pain is described as throbbing. Neuro: Cool Agitation-Sedation Scale (RASS): 0 - Alert and Calm Level of Consciousness is awake, alert, obeys commands, Oriented to person, place, time, situation, Appropriate for age. Cardiovascular: Patient's skin is warm and dry. Respiratory: Airway is patent Respiratory effort is even, unlabored, Respiratory pattern is regular, symmetrical. GI: Abdomen is flat. : No signs and/or symptoms were reported regarding the genitourinary system. EENT: No signs and/or symptoms were reported regarding the EENT system. Derm: Skin is pink, warm \T\ dry. Musculoskeletal: Range of motion: intact in all extremities. Vital Signs: 16:59 BP 138 / 83; Pulse 81; Resp 16; Temp 98(O); Pulse Ox 100% on R/A; Weight 67.59 kg; nj1 Height 5 ft. 3 in. ; Pain 7/10; 19:10 BP 124 / 82; Pulse 74; Resp 16; Pulse Ox 99% on R/A; mb9 16:59 Body Mass Index 26.39 (67.59 kg, 160.02 cm) nj1 16:59 Pain Scale: Adult [facility] ED Course: 16:03 Patient arrived in ED. mg5 16:04 Stanislav Nichole DO is Attending Physician. ms3 17:01 Triage completed. nj1 17:02 Arm band placed on right wrist. nj1 17:48 Ran Beckman, RN is Primary Nurse. jl7 17:53 CBC with Diff Sent. mb9 17:53 CMP Sent. mb9 17:53 Lipase Sent. mb9 17:53 Test, Urine Sent. mb9 17:53 Inserted saline lock: 20 gauge in left antecubital area, using aseptic technique. mb9 18:00 Placed in gown. Bed in low position. Call light in reach. Side rails up X 1. Client mb9 placed on continuous cardiac and pulse oximetry monitoring. NIBP monitoring applied. 18:21 CT Abd/Pelvis - IV Contrast Only In Process Unspecified. EDMS 18:53 Marco Muse DO is Referral Physician. ms3 19:09 No provider procedures requiring assistance completed. IV discontinued, intact, mb9 bleeding controlled, No redness/swelling at site. Pressure dressing applied. Administered Medications: No medications were administered Medication: 19:10 VIS not applicable for this client. mb9 Outcome: 18:53 Discharge ordered by . ms3 19:10 Discharged to home ambulatory, mb9 19:10 Condition: stable 19:10 Discharge instructions given to patient, Instructed on discharge instructions, follow up and referral plans. Demonstrated understanding of instructions, follow-up care, 19:10 Patient left the ED. mb9 Signatures: Dispatcher [employer] EDMS Ran Beckman, RN RN jl7 Stanislav Nichole DO DO ms3 Deepali Reyes, RN RN mb9 Ange Mackey RN RN nj1 Cathy Messer mg5
--- NOTE | 2023-08-15 18:54 | EDPHYS ---
Physician Documentation [facility] Name: Lona Marie Age: 33 yrs Sex: Female : 1990 Arrival Date: 08/15/2023 Time: 15:58 Bed 16 Private MD: ED Physician Stanislav Nichole HPI: 08/15 16:32 This 33 yrs old Female presents to ER via Unassigned with complaints of Vomiting, ms3 Abdominal Pain. 16:32 33-year-old female with with past medical history of anxiety presents to the emergency ms3 department for heartburn is been ongoing for 3 to 4 days. Patient states she began having nausea vomiting and epigastric abdominal pain today. Patient denies black or bloody stools. Patient states her pain is located in her mid abdomen rated an 8/10 and described as shooting. Patient notes the pain became worse after eating at [employer]. 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 - Social history:: Smoking status: Patient reports the use of cigarette tobacco products, smokes one-half pack cigarettes per day. ROS: 16:32 Constitutional: Negative for fever, and chills. Neck: Negative for injury, pain, and ms3 swelling, Cardiovascular: Negative for chest pain, and palpitations. Respiratory: Negative for shortness of breath, cough, wheezing, and pleuritic chest pain, 16:32 MS/Extremity: Negative for injury and deformity, Skin: Negative for injury, rash, and discoloration, 16:32 Abdomen/GI: Positive for abdominal pain, nausea and vomiting, 16:32 All other systems are negative, Exam: 16:32 Constitutional: This is a well developed, well nourished patient who is awake, alert, ms3 and in no acute distress. Head/Face: Normocephalic, atraumatic. Neck: Trachea midline, no cervical lymphadenopathy. Supple, full range of motion without nuchal rigidity, or vertebral point tenderness. No Meningismus. Chest/axilla: Normal chest wall appearance and motion. Nontender with no deformity. Cardiovascular: Regular rate and rhythm with a normal S1 and S2. No gallops, murmurs, or rubs. Normal PMI, no JVD. No pulse deficits. Respiratory: Lungs have equal breath sounds bilaterally, clear to auscultation and percussion. No rales, rhonchi or wheezes noted. No increased work of breathing, no retractions or nasal flaring. 16:32 Abdomen/GI: Inspection: abdomen appears normal, Bowel sounds: normal, Palpation: moderate abdominal tenderness, in the epigastric area, Vital Signs: 16:59 BP 138 / 83; Pulse 81; Resp 16; Temp 98(O); Pulse Ox 100% on R/A; Weight 67.59 kg; nj1 Height 5 ft. 3 in. ; Pain 7/10; 19:10 BP 124 / 82; Pulse 74; Resp 16; Pulse Ox 99% on R/A; mb9 16:59 Body Mass Index 26.39 (67.59 kg, 160.02 cm) nj1 16:59 Pain Scale: Adult nj1 MDM: 16:23 Patient medically screened. ms3 16:32 Differential diagnosis: Nonspecific abd pain, gastritis, pancreatitis, viral ms3 gastroenteritis, gastroenteritis. 18:54 Data reviewed: vital signs, nurses notes, lab test result(s), radiologic studies, CT ms3 scan, and as a result, I will discharge patient. I considered the following discharge prescriptions or medication management in the emergency department Medications were administered in the Emergency Department. See MAR. Care significantly affected by the following chronic conditions: Anxiety. Counseling: I had a detailed discussion with the patient and/or guardian regarding the historical points, exam findings, and any diagnostic results supporting the discharge/admit diagnosis, lab results, radiology results, the need for outpatient follow up, to return to the emergency department if symptoms worsen or persist or if there are any questions or concerns that arise at home. Special discussion: Based on the patient's Hx, exam, and Dx evaluation, there is no indication for emergent surgery or inpatient Tx. It is understood by the patient/guardian that if the Sx's persist or worsen they need to return immediately for re-evaluation. ED course: Discussed labs, CT scan with patient. Patient to follow-up with primary care physician in 2 to 3 days. Patient understands and agrees with plan. All questions were answered. Return precautions discussed include worsening symptoms, or any other concerns. On reevaluation patient is improved, alert and oriented x 4, no apparent distress, nontoxic-appearing, ambulatory in the emergency department, speaking full sentences.. 08/15 16:31 Order name: CBC with Diff; Complete Time: 18:18 ms3 08/15 16:31 Order name: CMP; Complete Time: 18:18 ms3 08/15 16:31 Order name: Lipase; Complete Time: 18:18 ms3 08/15 16:32 Order name: Test, Urine; Complete Time: 18:18 ms3 08/15 16:31 Order name: CT Abd/Pelvis - IV Contrast Only; Complete Time: 18:46 ms3 08/15 16:31 Order name: IV Saline Lock; Complete Time: 17:53 ms3 08/15 16:31 Order name: Labs collected and sent; Complete Time: 17:53 ms3 Administered Medications: No medications were administered Disposition Summary: 08/15/23 18:53 Discharge Ordered Notes: Location: Home ms3 Condition: Stable ms3 Diagnosis - Upper abdominal pain, unspecified ms3 - Elevated blood-pressure reading, without diagnosis of hypertension ms3 Followup: ms3 - With: Marco Muse DO - When: 2 - 3 days - Reason: Recheck today's complaints Discharge Instructions: - Discharge Summary Sheet ms3 - Abdominal Pain, Adult ms3 - DASH Eating Plan ms3 Forms: - Work release form iw - Medication Reconciliation Form ms3 - Thank You Letter ms3 - Antibiotic Education ms3 - Prescription Opioid Use ms3 - Patient Portal Instructions ms3 - Leadership Thank You Letter ms3 Signatures: Dispatcher [employer] EDMS Stanislav Nichole DO DO ms3 Ange Mackey RN RN nj1
[2023-08-15] MEDS ORDERED: PANTOPRAZOLE 40 MG INJ ONE (19:06)
[2023-08-15 19:26] VITALS: TEMP 98
[2023-08-15 19:35] VITALS: BP 124/82; O2SAT 99
== END 2023-08-15 19:10 | disposition home or self-care (01) ==
LOC: ER 15:58
DX: R10.13 Epigastric pain (principal); R03.0 Elevated blood-pressure reading, without diagnosis of hypertension; R11.0 Nausea; F17.210 Nicotine dependence, cigarettes, uncomplicated; Z88.0 Allergy status to penicillin; Z88.1 Allergy status to other antibiotic agents; Z88.5 Allergy status to narcotic agent; Z88.8 Allergy status to other drugs, medicaments and biological substances; Z91.040 Latex allergy status; Z91.048 Other nonmedicinal substance allergy status
CPT/HCPCS: 85025; 36415; 81025; 83690; 80053; 74177; 99284; Q9967; C9113

== ENCOUNTER → 2023-09-13 | Emergency (ER) | payer OTHER ==
[~2023-09-13] MED LIST: ASPIRIN 81 MG CHEWABLE TABLET ONE; CEFTRIAXONE 1000 MG/VIAL ONE; DIAZEPAM 5 MG TABLET ONE; GABAPENTIN 300 MG CAP ONE; HYDROMORPHONE HCL 0.5 MG/0.5 ML INJ ONE; HYDROMORPHONE HCL 1 MG/ML INJ ONE
[2023-09-13 21:35] LABS: Absolute Lymphocytes (CBC) 4.4 K/uL (0.7-4.9); Hematocrit 37.3 % (36.0-45.0); MCV 91.2 fL (80-100); Platelets 406 thou/uL (152-406); RBC Red Blood Cell Count 4.09 M/uL (3.86-4.86)
[2023-09-13 21:46] LABS: Albumin 4.1 g/dL (3.4-5.0); Bilirubin Total 0.2 mg/dL (0.2-1.0); Potassium 3.5 mEq/L (3.5-5.1); Protein, Total 7.6 g/dL (6.4-8.2)
--- NOTE | 2023-09-13 22:30 | RAD REPORT ---
EXAM DESCRIPTION: US - Extremity Nonvascular Complete - 09/13/2023 10:12 pm CLINICAL HISTORY: SWELLING COMPARISON: No comparisons TECHNIQUE: Sonographic grayscale and color flow images of the right breast were obtained. FINDINGS: Postsurgical changes in the right breast, we ill-defined areas of fluid accumulation with debris and thin septations, the largest component of which measures 2.5 x 1.7 x 1.6 cm. No solid comp onents or pronounced inflammatory changes on color duplex imaging. IMPRESSION: Findings suggestive of postsurgical changes with a small ill-defined right breast seroma in the surgical bed.
--- NOTE | 2023-09-13 22:32 | RAD REPORT ---
EXAM DESCRIPTION: US - Extremity Nonvascular Complete - 09/13/2023 10:12 pm CLINICAL HISTORY: Pain;Swelling COMPARISON: Extremity Nonvascular Complete dated 09/13/2023 TECHNIQUE: Sonographic grayscale and color flow images of the left breast were obtained. FINDINGS: Postsurgical changes in the left breast. Small ill-defined region of fluid accumulation wi th debris and thin septations, with the largest component measuring 2.8 x 1.7 x 1.7 cm. No significan t inflammatory changes in the adjacent breast tissue, or suspicious masses. IMPRESSION: Postsurgical changes with defined seroma in the left breast.
--- NOTE | 2023-09-13 23:05 | EDPHYS ---
Physician Documentation [facility] Name: Lona Marie Age: 33 yrs Sex: Female : 1990 Arrival Date: 09/13/2023 Time: 20:08 Bed 14 Private MD: ED Physician Oleg Schultz HPI: 09/13 22:15 This 33 yrs old Female presents to ER via Ambulatory with complaints of Post Surgical snw Pain, Post Surgical Bleeding, PARTIAL MASECTOMY ON 08/26/23. PATIENT HAVING DISCHARGE, PRESSURE, AND FEVER FROM INCISION SITE.. 22:15 pt denies fever, states she was doing well until 3-4 days ago when she began having snw serosanguinous dc from bilateral breast incisions, states the pain has become so bad that she is unable to move her right arm, unable to sleep, unable to function.. The patient has experienced a previous episode, pt has hx of infected seroma at time of previous lumpectomy site. f/u surgical appt in 3 days.. 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 - Social history:: Smoking status: Patient denies any tobacco usage or history of. ROS: 22:13 Constitutional: Negative for fever, chills, and weight loss, Eyes: Negative for injury, snw pain, redness, and discharge, ENT: Negative for injury, pain, and discharge, Neck: Negative for injury, pain, and swelling, Cardiovascular: Negative for chest pain, palpitations, and edema, Respiratory: Negative for shortness of breath, cough, wheezing, and pleuritic chest pain, Abdomen/GI: Negative for abdominal pain, nausea, vomiting, diarrhea, and constipation, Back: Negative for injury and pain, : Negative for injury, bleeding, discharge, and swelling, Skin: Negative for injury, rash, and discoloration, Neuro: Negative for headache, weakness, numbness, tingling, and seizure, Psych: Negative for depression, anxiety, suicide ideation, homicidal ideation, and hallucinations, 22:13 MS/extremity: Positive for pain, swelling, tenderness, of the bilateral breast and down right arm, Exam: 20:51 Head/Face: Normocephalic, atraumatic. Eyes: Pupils equal round and reactive to light, snw extra-ocular motions intact. Lids and lashes normal. Conjunctiva and sclera are non-icteric and not injected. Cornea within normal limits. Periorbital areas with no swelling, redness, or edema. ENT: Nares patent. No nasal discharge, no septal abnormalities noted. Tympanic membranes are normal and external auditory canals are clear. Oropharynx with no redness, swelling, or masses, exudates, or evidence of obstruction, uvula midline. Mucous membranes moist. Neck: Trachea midline, no thyromegaly or masses palpated, and no cervical lymphadenopathy. Supple, full range of motion without nuchal rigidity, or vertebral point tenderness. No Meningismus. Chest/axilla: Normal chest wall appearance and motion. Nontender with no deformity. No lesions are appreciated. Cardiovascular: Regular rate and rhythm with a normal S1 and S2. No gallops, murmurs, or rubs. Normal PMI, no JVD. No pulse deficits. Respiratory: Lungs have equal breath sounds bilaterally, clear to auscultation and percussion. No rales, rhonchi or wheezes noted. No increased work of breathing, no retractions or nasal flaring. Abdomen/GI: Soft, non-tender, with normal bowel sounds. No distension or tympany. No guarding or rebound. No evidence of tenderness throughout. Back: No spinal tenderness. No costovertebral tenderness. Full range of motion. MS/ Extremity: Pulses equal, no cyanosis. Neurovascular intact. Full, normal range of motion. Neuro: Awake and alert, GCS 15, oriented to person, place, time, and situation. Cranial nerves II-XII grossly intact. Motor strength 5/5 in all extremities. Sensory grossly intact. Cerebellar exam normal. Normal gait. Psych: Awake, alert, with orientation to person, place and time. Behavior, mood, and affect are within normal limits. 20:51 Constitutional: The patient appears alert, awake, uncomfortable, fighting fatigue/tears 20:51 Skin: Appearance: normal except for affected area, bilateral breasts with surgical incisions, tenderness behind bilateral nipples.. Vital Signs: 20:29 BP 152 / 104; Pulse 107; Resp 20; Temp 98.2; Pulse Ox 100% ; Weight 67.59 kg; Height 5 bp ft. 3 in. ; 21:30 BP 145 / 84; Pulse 80; Pulse Ox 100% on R/A; Pain 10/10; tm6 22:25 BP 142 / 93; Pulse 73; Pulse Ox 100% on R/A; Pain 10/10; tm6 23:18 BP 143 / 87; Pulse 99; Pulse Ox 100% on R/A; Pain 10/10; tm6 20:29 Body Mass Index 26.39 (67.59 kg, 160.02 cm) bp 21:30 Pain Scale: Adult tm6 22:25 Pain Scale: Adult tm6 23:18 Pain Scale: Adult tm6 MDM: 20:50 Patient medically screened. snw 22:18 Differential Diagnosis anxiety, stress, infection, fatigue. Data reviewed: vital signs, snw nurses notes. I considered the following discharge prescriptions or medication management in the emergency department Medications were administered in the Emergency Department. See NOV. 09/13 20:43 Order name: CMP; Complete Time: 21:49 bp 09/13 20:43 Order name: CBC with Diff; Complete Time: 21:49 bp 09/13 20:43 Order name: Blood Culture Adult (2) bp 09/13 20:51 Order name: Extremity Nonvascular Complete; Complete Time: 22:33 EDMS 09/13 20:52 Order name: Extremity Nonvascular Complete; Complete Time: 22:31 EDMS 09/13 20:43 Order name: Labs collected and sent; Complete Time: 21:45 bp 09/13 20:43 Order name: IV Saline Lock; Complete Time: 21:17 bp Administered Medications: 21:45 Drug: Aspirin PO Chewable Tablet 81 mg PO once Route: PO; tm6 21:45 Drug: Diazepam PO 10 mg PO once Route: PO; tm6 22:18 Drug: Rocephin IV 1 grams IV at calculated rate once; Given slow IV push per pharmacy tm6 instructions Route: IV; Rate: calculated rate; Site: right antecubital; 22:25 Drug: HYDROmorphone IM 1 mg IM once Route: IM; Site: left deltoid; tm6 23:03 Not Given (Patient Refused): [id number] mg PO once tm6 23:17 Drug: HYDROmorphone IVP 0.5 mg IVP once Route: IVP; Site: right antecubital; tm6 Disposition Summary: 09/13/23 23:04 Discharge Ordered Notes: Location: Home snw Condition: Stable snw Diagnosis - Acute pain, not elsewhere classified snw - Bilateral breast seromas snw Followup: snw - With: Emergency Department - When: As needed - Reason: Worsening of condition Followup: snw - With: Private Physician - When: 2 - 3 days - Reason: Recheck today's complaints, Continuance of care, Re-evaluation by your physician Discharge Instructions: - Discharge Summary Sheet snw - Fatigue snw - Seroma snw - Acute Pain, Adult snw Forms: - Medication Reconciliation Form snw - Thank You Letter snw - Antibiotic Education snw - Prescription Opioid Use snw - Patient Portal Instructions snw - Leadership Thank You Letter snw Prescriptions: - Cephalexin 500 mg Oral Capsule - take 1 capsule ORAL route every 8 hours for 10 days; 30 capsule; Refills: 0, snw Product Selection Permitted Signatures: Dispatcher [employer] EDMS Yuki Islas FNP-C [employer]NAGER-[employer] Blas Perez, RN RN Bobbi Skinner RN RN tm6 Corrections: (The following items were deleted from the chart) 20:51 20:43 Extrem Venous W Compression Antoine+US.RAD.BRZ ordered. EDMS EDMS 20:52 20:43 Extrmty Nonvasular Limited+US.RAD.BRZ ordered. EDMS EDMS
--- NOTE | 2023-09-13 23:05 | ER ---
Nurse's Notes [facility] Name: Lona Marie Age: 33 yrs Sex: Female : 1990 Arrival Date: 09/13/2023 Time: 20:08 Bed 14 Private MD: Diagnosis: Acute pain, not elsewhere classified;Bilateral breast seromas Presentation: 09/13 20:29 Chief complaint: Patient states: TWO DAYS PAIN, PRESSURE AND DISCHARGE FROM SURGICAL bp SITE, BILATERAL PARTIAL MAST AT [facility] 08/26. Coronavirus screen: At this time, the client does not indicate any symptoms associated with coronavirus-19. Ebola Screen: No symptoms or risks identified at this time. Initial Sepsis Screen: Does the patient meet any 2 criteria? No. Patient's initial sepsis screen is negative. Does the patient have a suspected source of infection? No. Patient's initial sepsis screen is negative. Risk Assessment: Do you want to hurt yourself or someone else? Patient reports no desire to harm self or others. Onset of symptoms is unknown. 20:29 Method Of Arrival: Ambulatory bp 20:29 Acuity: SMITH 3 bp Triage Assessment: 20:31 General: Appears in no apparent distress. uncomfortable, Behavior is cooperative, bp appropriate for age, anxious. Pain: Complains of pain in chest. 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 - Social history:: Smoking status: Patient denies any tobacco usage or history of. Screenin:30 [facility] ED Fall Risk Assessment (Adult) History of falling in the last 3 months, tm6 including since admission No falls in past 3 months (0 pts). Abuse screen: Denies threats or abuse. Denies injuries from another. Nutritional screening: No deficits noted. Tuberculosis screening: No symptoms or risk factors identified. Assessment: 21:30 General: Appears uncomfortable, Behavior is cooperative. Pain: Complains of pain in tm6 chest Pain radiates to posterior aspect of right shoulder Pain currently is 10 out of 10 on a pain scale. Neuro: Level of Consciousness is awake, alert, obeys commands, Oriented to person, place, time, situation. Cardiovascular: Capillary refill < 3 seconds Patient's skin is warm and dry. Respiratory: Airway is patent Respiratory effort is even, unlabored, Respiratory pattern is regular, symmetrical. GI: Abdomen is round non-distended. : No signs and/or symptoms were reported regarding the genitourinary system. EENT: No signs and/or symptoms were reported regarding the EENT system. Derm: No signs and/or symptoms reported regarding the dermatologic system. Musculoskeletal: No signs and/or symptoms reported regarding the musculoskeletal system. 22:25 Reassessment: Patient appears in no apparent distress at this time. Patient and/or tm6 family updated on plan of care and expected duration. Pain level reassessed. Patient is alert, oriented x 3, equal unlabored respirations, skin warm/dry/pink. Patient states symptoms have not improved. 23:18 Reassessment: Patient and/or family updated on plan of care and expected duration. Pain tm6 level reassessed. Patient is alert, oriented x 3, equal unlabored respirations, skin warm/dry/pink. Vital Signs: 20:29 BP 152 / 104; Pulse 107; Resp 20; Temp 98.2; Pulse Ox 100% ; Weight 67.59 kg; Height 5 bp ft. 3 in. ; 21:30 BP 145 / 84; Pulse 80; Pulse Ox 100% on R/A; Pain 10/10; tm6 22:25 BP 142 / 93; Pulse 73; Pulse Ox 100% on R/A; Pain 10/10; tm6 23:18 BP 143 / 87; Pulse 99; Pulse Ox 100% on R/A; Pain 10/10; tm6 20:29 Body Mass Index 26.39 (67.59 kg, 160.02 cm) bp 21:30 Pain Scale: Adult tm6 22:25 Pain Scale: Adult tm6 23:18 Pain Scale: Adult tm6 ED Course: 20:11 Patient arrived in ED. jj6 20:31 Triage completed. bp 20:31 Arm band placed on. bp 20:46 Yuki Islas FNP-C is PHCP. snw 20:46 Oleg Schultz MD is Attending Physician. snw 21:30 Patient has correct armband on for positive identification. Placed in gown. Bed in low tm6 position. Call light in reach. Side rails up X2. Provided Education on: plan of care. Client placed on continuous cardiac and pulse oximetry monitoring. NIBP monitoring applied. Door closed. Noise minimized. Warm blanket given. 21:30 No provider procedures requiring assistance completed. Inserted saline lock: 20 gauge tm6 in right antecubital area, using aseptic technique. 22:14 Extremity Nonvascular Complete In Process Unspecified. EDMS 22:14 Extremity Nonvascular Complete In Process Unspecified. EDMS 23:03 Bobbi Skinner, RN is Primary Nurse. tm6 23:26 IV discontinued, intact, bleeding controlled, No redness/swelling at site. Pressure tm6 dressing applied. Administered Medications: 21:45 Drug: Aspirin PO Chewable Tablet 81 mg PO once Route: PO; tm6 21:45 Drug: Diazepam PO 10 mg PO once Route: PO; tm6 22:18 Drug: Rocephin IV 1 grams IV at calculated rate once; Given slow IV push per pharmacy tm6 instructions Route: IV; Rate: calculated rate; Site: right antecubital; 22:25 Drug: HYDROmorphone IM 1 mg IM once Route: IM; Site: left deltoid; tm6 23:03 Not Given (Patient Refused): [id number] mg PO once tm6 23:17 Drug: HYDROmorphone IVP 0.5 mg IVP once Route: IVP; Site: right antecubital; tm6 Medication: 21:30 VIS not applicable for this client. tm6 Outcome: 23:04 Discharge ordered by . snw 23:26 Discharged to home ambulatory, with family, tm6 23:26 Condition: improved 23:26 Discharge instructions given to patient, Instructed on discharge instructions, follow up and referral plans. medication usage, Demonstrated understanding of instructions, follow-up care, medications, Prescriptions given X 1, 23:26 Patient left the ED. tm6 Signatures: Dispatcher [employer] EDMS Yuki Islas FNP-C JANITOR [employer]ET[employer]-Csnw Blas Perez, RN RN bp Yuly Monique jj6 Bobbi Skinner, RN RN tm6
[2023-09-14 03:14] VITALS: BP 143/87; TEMP 98.2; O2SAT 100
== END ==
LOC: ER 20:08
DX: G89.18 Other acute postprocedural pain (principal); M96.843 Postprocedural seroma of a musculoskeletal structure following other procedure; Z90.13 Acquired absence of bilateral breasts and nipples; Z88.0 Allergy status to penicillin; Z88.1 Allergy status to other antibiotic agents; Z88.5 Allergy status to narcotic agent; Z91.040 Latex allergy status
CPT/HCPCS: 87040 ×2; 85025; 36415; 80053; 76881 ×2; 96375; 96372; 96374; 99284; J1170 ×2; J0696

== ENCOUNTER → 2023-10-08 | Emergency (ER) | payer OTHER ==
[~2023-10-08] MED LIST changes: -ASPIRIN 81 MG CHEWABLE TABLET ONE; -CEFTRIAXONE 1000 MG/VIAL ONE; -DIAZEPAM 5 MG TABLET ONE; -GABAPENTIN 300 MG CAP ONE; -HYDROMORPHONE HCL 0.5 MG/0.5 ML INJ ONE; -HYDROMORPHONE HCL 1 MG/ML INJ ONE; +NA CHLORIDE 0.9% 0 ML ONE; +PROMETHAZINE INJ 25 MG/ML AMP ONE
--- NOTE | 2023-10-08 20:16 | EDPHYS ---
Physician Documentation [facility] Name: Lona Marie Age: 33 yrs Sex: Female : 1990 Arrival Date: 10/08/2023 Time: 18:53 Bed IW10 Private MD: ED Physician Stanislav Nichole HPI: 10/08 20:01 This 33 yrs old Female presents to ER via Ambulatory with complaints of Headache - sb4 Pressure, Blurred Vision. 20:17 patient states that she had bilateral tympanostomy tubes placed by Dr. Sharpe about a sb4 week ago. since then, she has had a worsening headache, neck pain, blurry vision, nausea, vomiting, dizziness, and diarrhea. she followed up with ENT who stated that everything looked okay and referred her to neurology for further workup. she has seen neuro who ordered an MRI but states that she cannot get any relief and needs answers. she has been taking valium, ubrevly, zofran without any change in symptoms. 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 - Social history:: Smoking status: Patient denies any tobacco usage or history of. ROS: 20:19 Constitutional: Negative for fever, chills, and weight loss, sb4 20:19 Abdomen/GI: Positive for nausea, vomiting, and diarrhea, 20:19 Neuro: Positive for dizziness, headache, visual changes, 20:19 All other systems are negative, Exam: 20:19 Head/Face: Normocephalic, atraumatic. Eyes: Extra-ocular motions intact. Periorbital sb4 areas with no swelling, redness, or edema. Cardiovascular: Regular rate and rhythm with a normal S1 and S2. Respiratory: Lungs have equal breath sounds bilaterally, clear to auscultation and percussion. No rales, rhonchi or wheezes noted. No increased work of breathing, no retractions or nasal flaring. Abdomen/GI: Soft, non-tender, no distension. Skin: Warm, dry with normal turgor. Normal color with no rashes, no lesions, and no evidence of cellulitis. MS/ Extremity: Pulses equal, no cyanosis. Neurovascular intact. Full, normal range of motion. Neuro: Awake and alert, GCS 15, oriented to person, place, time, and situation. Motor strength 5/5 in all extremities. Sensory grossly intact. 20:19 Constitutional: The patient appears alert, awake, anxious, 20:19 ENT: Ear canal(s): are normal, TM's: PE tubes visualized. PE tubes patent, intact, draining in ear canal Vital Signs: 19:17 BP 129 / 74; Pulse 86; Resp 18; Temp 98.4; Pulse Ox 100% ; Weight 67.59 kg; Height 5 cp4 ft. 3 in. ; Pain 10/10; 19:48 BP 123 / 74; Pulse 98; Resp 18 S; Pulse Ox 100% on R/A; jw7 19:17 Body Mass Index 26.40 (67.59 kg, 160.02 cm) cp4 19:17 Pain Scale: Adult cp4 [place] Coma Score: 20:19 Eye Response: spontaneous(4). Motor Response: obeys commands(6). Verbal Response: sb4 oriented(5). Total: 15. MDM: 19:15 Patient medically screened. sb4 20:15 ED course: patient eloped after my assessment before labs/imaging could be obtained. sb4 20:19 Differential diagnosis:. Data reviewed: vital signs, nurses notes, and as a result, I sb4 will discharge patient. 10/08 19:37 Order name: IV Saline Lock sb4 10/08 19:37 Order name: Labs collected and sent sb4 Administered Medications: 20:36 Not Given (Patient Eloped): ns 0.9% 1000 ml IV at 1 bolus Per protocol; 1000 mL bolus sb4 20:36 Not Given (Patient Eloped): [id number] mg IVP once sb4 Disposition: 20:36 I was immediately available on-site in the Emergency Department for consultation in the ms3 care of the patient. Disposition Summary: 10/08/23 20:15 Discharge Ordered Notes: Location: Home sb4 Problem: new sb4 Symptoms: are unchanged sb4 Condition: Stable sb4 Diagnosis - Headache sb4 Followup: sb4 - With: Emergency Department - When: As needed - Reason: Trouble breathing, Worsening of condition Forms: - Medication Reconciliation Form sb4 - Thank You Letter sb4 - Antibiotic Education sb4 - Prescription Opioid Use sb4 - Patient Portal Instructions sb4 - Leadership Thank You Letter sb4 Signatures: Dispatcher [employer] EDMS Stanislav Nichole, DO ms3 Pau De Paz PA-C PASerena sb4 Shelbi Carroll cp4 Corrections: (The following items were deleted from the chart) 20:20 20:17 patient states that she had bilateral tympanostomy tubes placed by Dr. Sharpe about sb4 a week ago. sb4 20:36 19:37 Head Brain Wo Cont+CT.RAD.BRZ ordered. EDMS EDMS
--- NOTE | 2023-10-08 20:16 | ER ---
Nurse's Notes [facility] Name: Lona Marie Age: 33 yrs Sex: Female : 1990 Arrival Date: 10/08/2023 Time: 18:53 Bed IW10 Private MD: Diagnosis: Headache Presentation: 10/08 19:17 Chief complaint: Patient states: states headache, nausea, vomiting, blurred vision cp4 since having ear surgery last week. Has seen her ENT and saw Dr. Villarreal yesterday. Coronavirus screen: Vaccine status: Client denies travel out of the [place] in the last 14 days. At this time, the client does not indicate any symptoms associated with coronavirus-19. Ebola Screen: Patient negative for fever greater than or equal to 101.5 degrees Fahrenheit, and additional compatible Ebola Virus Disease symptoms Patient denies exposure to infectious person. Patient denies travel to an Ebola-affected area in the 21 days before illness onset. No symptoms or risks identified at this time. Initial Sepsis Screen: Does the patient meet any 2 criteria? No. Patient's initial sepsis screen is negative. Does the patient have a suspected source of infection? No. Patient's initial sepsis screen is negative. Risk Assessment: Do you want to hurt yourself or someone else? Patient reports no desire to harm self or others. Onset of symptoms was September 29, 2023. 19:17 Method Of Arrival: Ambulatory cp4 19:17 Acuity: SMITH 3 cp4 Triage Assessment: 19:20 Headache History: Denies prior headaches. General: Appears in no apparent distress. cp4 Behavior is appropriate for age, anxious. Pain: Pain currently is 10 out of 10 on a pain scale. Pain began 1 week ago Also complains of nausea. Neuro: Reports blurred vision headache. 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 - Social history:: Smoking status: Patient denies any tobacco usage or history of. Screenin:49 [facility] ED Fall Risk Assessment (Adult) History of falling in the last 3 months, jw7 including since admission No falls in past 3 months (0 pts) Score/Fall Risk Level 0 - 2 = Low Risk Oriented to surroundings, Maintained a safe environment, Educated pt \\T\\ family on fall prevention, incl call for assistance when getting out of bed. Abuse screen: Denies threats or abuse. Denies injuries from another. Nutritional screening: No deficits noted. Tuberculosis screening: No symptoms or risk factors identified. Assessment: 19:30 General: See Triage assessment. jw7 20:00 General: Attempted to start IV, pt became irate stated "It's going to take too long to [facility] get any results back, so I'm going to go to [place] like they told me to". Pt refused IV and ordered medications. Patient walked out of ER AMA. provider notified . Vital Signs: 19:17 BP 129 / 74; Pulse 86; Resp 18; Temp 98.4; Pulse Ox 100% ; Weight 67.59 kg; Height 5 cp4 ft. 3 in. ; Pain 10/10; 19:48 BP 123 / 74; Pulse 98; Resp 18 S; Pulse Ox 100% on R/A; jw7 19:17 Body Mass Index 26.40 (67.59 kg, 160.02 cm) cp4 19:17 Pain Scale: Adult cp4 [place] Coma Score: 20:19 Eye Response: spontaneous(4). Motor Response: obeys commands(6). Verbal Response: sb4 oriented(5). Total: 15. ED Course: 18:56 Patient arrived in ED. mg5 18:57 Pau De Paz PA-C is PHCP. sb4 18:57 Stanislav Nichole DO is Attending Physician. sb4 19:20 Triage completed. cp4 19:30 Arm band placed on. jw7 19:47 Eboni Keyes RN is Primary Nurse. jw7 19:49 Patient has correct armband on for positive identification. Bed in low position. Call jw7 light in reach. 20:36 No provider procedures requiring assistance completed. Patient did not have IV access jw7 during this emergency room visit. Administered Medications: 20:36 Not Given (Patient Eloped): ns 0.9% 1000 ml IV at 1 bolus Per protocol; 1000 mL bolus sb4 20:36 Not Given (Patient Eloped): [id number] mg IVP once sb4 Medication: 20:00 VIS not applicable for this client. jw7 Outcome: 20:15 Discharge ordered by . sb4 20:20 AMA Left before signing form, jw7 20:20 Condition: stable 20:38 Patient left the ED. jw7 Signatures: Eboni Keyes RN RN jw7 Pau De Paz PA-C PA-C sb4 Cathy Messer5 Shelbi Carroll cp4 Corrections: (The following items were deleted from the chart) 20:29 20:00 General: Attempted to start IV, pt became irate stated "It's going to take too jw7 long to get any results back, so I'm going to go to [place] like they told me to". Pt refused IV and ordered medications. Patient walked out of ER AMA. . jw7
[2023-10-08 20:53] VITALS: BP 123/74; TEMP 98.4; O2SAT 100
== END ==
LOC: ER 18:53
DX: R51.9 Headache, unspecified (principal); R42 Dizziness and giddiness; F41.9 Anxiety disorder, unspecified; Z98.890 Other specified postprocedural states; Z88.0 Allergy status to penicillin; Z88.1 Allergy status to other antibiotic agents; Z88.5 Allergy status to narcotic agent; Z88.8 Allergy status to other drugs, medicaments and biological substances; Z91.040 Latex allergy status; Z91.048 Other nonmedicinal substance allergy status
CPT/HCPCS: J2550; J7030

== ENCOUNTER 2024-02-17 05:02 | Emergency (ER) | payer OTHER ==
[2024-02-17] MEDS ORDERED: ONDANSETRON 4 MG/2 ML VIAL ONE (05:40)
[2024-02-17] MEDS ORDERED: MORPHINE 4 MG/ML SYR ONE ×2 (05:41→06:30)
[2024-02-17] MEDS ORDERED: DIAZEPAM 10 MG/2 ML INJ SYRINGE ONE (05:59)
[2024-02-17 06:04] LABS: Absolute Basophils 0.1 K/uL (0-0.5); Absolute Eosinophils 0.1 K/uL (0-0.5); Absolute Lymphocytes (CBC) 3.3 K/uL (0.7-4.9); Absolute Neutrophil 6.6 K/uL (1.8-8.0); Basophils % 0.9 % (0-1.3); Eosinophils % 1.3 % (0-4.4); Hematocrit 34.5 % (36.0-45.0); Hemoglobin 11.9 g/dL (12.0-15.0); Lymphocytes % 29.2 % (15.3-44.8); MCH 31.5 pg (27.0-35.0); MCHC 34.5 g/dL (32.0-36.0); MCV 91.4 fL (80-100); MPV 7.4 fL (7.6-11.3); Monocytes % 9.2 % (3.3-12.3); Neutrophils % 59.4 % (41.7-73.7); Platelets 381 thou/uL (152-406); RBC Red Blood Cell Count 3.77 M/uL (3.86-4.86); Red Cell Distribution Width 12.4 % (12.1-15.2)
[2024-02-17 06:11] LABS: PT Prothrombin Time 11.6 SECONDS (9.5-12.5); Protime INR 1.06
[2024-02-17 06:22] LABS: ALT/SGPT 28 U/L (13-56); Albumin 3.9 g/dL (3.4-5.0); Albumin/Globulin Ratio 1.2 (1.1-1.8); Alkaline Phosphatase 48 U/L (45-117); Anion Gap 7.5 mEq/L (5.0-15.0); BUN Blood Urea Nitrogen 10 mg/dL (7-18); Bicarbonate 25 mEq/L (21-32); Bilirubin Total 0.3 mg/dL (0.2-1.0); Globulin 3.2 g/dL (2.3-3.5); Glomerular Filtration Rate 117 ml/min (=/>90); Glucose Level 98 mg/dL (74-106); Potassium 3.5 mEq/L (3.5-5.1); Protein, Total 7.1 g/dL (6.4-8.2); Sodium Level 138 mEq/L (136-145)
[2024-02-17 06:23] LABS: AST/SGOT < 10 U/L (15-37)
--- NOTE | 2024-02-17 07:43 | RAD REPORT ---
EXAM DESCRIPTION: CT - Pelvis Wo Cont - 02/17/2024 7:00 am CLINICAL HISTORY: Pelvic pain COMPARISON: 2020 TECHNIQUE: Computed axial tomography of the pelvis was obtained. Coronal and sagittal reconstruction performed All CT scans are performed using dose optimization technique as appropriate and may include automated exposure control or mA/KV adjustment according to patient size. FINDINGS: No fracture or dislocation is seen. No evidence of avascular necrosis Muscles are normal size and density. No significant hip joint effusion Hysterectomy. No free fluid. No evidence diverticulitis Mild bladder distention IMPRESSION: Mild bladder distention No fracture seen
--- NOTE | 2024-02-17 07:44 | RAD REPORT ---
EXAM DESCRIPTION: CTSpine Lumbar Wo Con02/17/2024 7:27 am CLINICAL HISTORY: Back pain. Recent back surgery COMPARISON: None TECHNIQUE: Computed axial tomography lumbar spine was obtained with coronal and sagittal reconstruct ion. Only a portion of the L1 vertebral body is included in the superior field of view. All CT scans are performed using dose optimization technique as appropriate and may include automated exposure control or mA/KV adjustment according to patient size. FINDINGS: Small to moderate left posterolateral soft tissue L5-S1. Left laminectomy. Ill-defined fluid posterior subcutaneous tissues extending from L1 to L5-S1 with an AP diameter 1.8 c m No fracture or dislocation The remainder exam appears unremarkable. IMPRESSION: Postsurgical changes L5-S1. Small fluid collection within the posterior subcutaneous tissues could represent subacute hematoma Small to moderate left posterolateral structure L5-S1 could represent disc herniation or epidural fib rosis
[2024-02-17] MEDS ORDERED: CLINDAMYCIN 600MG/D5W 50 ML IV ONE (08:09)
[2024-02-17] MEDS ORDERED: HYDROMORPHONE HCL 1 MG/ML INJ ONE (08:09)
[2024-02-17] MEDS ORDERED: PROMETHAZINE INJ 25 MG/ML AMP ONE (08:14)
--- NOTE | 2024-02-17 08:33 | ER ---
Nurse's Notes [facility] Name: Lona Marie Age: 33 yrs Sex: Female : 1990 Arrival Date: 02/17/2024 Time: 05:02 Bed 20 Private MD: Diagnosis: Low back pain Presentation: 02/16 05:21 Chief complaint: Patient states: I started having fever, dizziness, severe back pain jb4 and nausea around midnight. I had back surgery 1 week ago. Coronavirus screen: At this time, the client does not indicate any symptoms associated with coronavirus-19. Ebola Screen: No symptoms or risks identified at this time. Initial Sepsis Screen: Does the patient meet any 2 criteria? No. Patient's initial sepsis screen is negative. Does the patient have a suspected source of infection? No. Patient's initial sepsis screen is negative. Risk Assessment: Do you want to hurt yourself or someone else? Patient reports no desire to harm self or others. Onset of symptoms was February 17, 2024. Transition of care: patient was not received from another setting of care. 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 - Infectious Disease History:: Denies. - Social history:: Smoking status: Patient denies any tobacco usage or history of. - Family history:: not pertinent. Screenin:00 [facility] ED Fall Risk Assessment (Adult) History of falling in the last 3 months, aa5 including since admission No falls in past 3 months (0 pts) Confusion or Disorientation No (0 pts) Intoxicated or Sedated No (0 pts) Impaired Gait No (0 pts) Mobility Assist Device Used No (0 pt) Altered Elimination No (0 pt) Score/Fall Risk Level 0 - 2 = Low Risk Oriented to surroundings, Maintained a safe environment, Educated pt \\T\\ family on fall prevention, incl call for assistance when getting out of bed. Abuse screen: Denies threats or abuse. Nutritional screening: No deficits noted. Tuberculosis screening: No symptoms or risk factors identified. Assessment: 05:21 General: Appears uncomfortable, Behavior is anxious, crying, restless. Pain: Complains ha1 of pain in back Pain does not radiate. Pain currently is 10 out of 10 on a pain scale. Quality of pain is described as aching, throbbing. Neuro: Level of Consciousness is awake, alert, obeys commands, Oriented to person, place, time, situation. Cardiovascular: Capillary refill < 3 seconds Patient's skin is warm and dry. Respiratory: Airway is patent Respiratory effort is even, unlabored, Respiratory pattern is regular, symmetrical. GI: Abdomen is distended, non-distended, Reports nausea. : No signs and/or symptoms were reported regarding the genitourinary system. Derm: Skin is pink, warm \\T\\ dry. Musculoskeletal: Circulation, motion, and sensation intact. Reports back pain post surgery. 07:15 Reassessment: Patient is alert, oriented x 3, equal unlabored respirations, skin aa5 warm/dry/pink. Pt to CT via wheelchair. 07:50 Reassessment: Patient is alert, oriented x 3, equal unlabored respirations, skin aa5 warm/dry/pink. Pt currently requesting pain medication. Pt c/o back pain and headache. Pt states "the morphine doesn't work; they gave me fentanyl and Dilaudid after the back surgery and it worked", was notified. . 08:00 Reassessment: at bedside. . aa5 08:15 Reassessment: Patient is alert, oriented x 3, equal unlabored respirations, skin aa5 warm/dry/pink. 08:15 General: Appears uncomfortable. aa5 08:55 Reassessment: Patient is alert, oriented x 3, equal unlabored respirations, skin aa5 warm/dry/pink. Patient states feeling better. Vital Signs: 05:21 BP 139 / 80; Pulse 90; Resp 16; Temp 98.8(O); Pulse Ox 100% on R/A; Weight 67.59 kg jb4 (R); Height 5 ft. 3 in. (R); 06:00 BP 139 / 80; Pulse 101; Resp 18; Pulse Ox 99% on 2 lpm NC; ha1 07:00 BP 139 / 58; Pulse 98; Resp 22 S; Pulse Ox 100% on 2 lpm NC; aa5 08:21 BP 108 / 60; Pulse 60; Resp 16 S; Pulse Ox 100% on 2 lpm NC; aa5 08:45 BP 110 / 60; Pulse 64; Resp 16 S; Pulse Ox 99% on R/A; aa5 05:21 Body Mass Index 26.39 (67.59 kg, 160.02 cm) jb4 Cali Coma Score: 05:39 Eye Response: spontaneous(4). Motor Response: obeys commands(6). Verbal Response: sp4 oriented(5). Total: 15. ED Course: 05:11 Patient arrived in ED. gm2 05:24 Triage completed. jb4 05:24 Arm band placed on right wrist. jb4 05:29 Oleg Schultz MD is Attending Physician. sp4 05:40 Inserted saline lock: 20 gauge in left antecubital area, using aseptic technique. Blood ha1 collected. 05:50 Jacquelyn Bunch RN is Primary Nurse. ha1 06:00 Oxygen administration via nasal cannula \\T\\ 2L/min. ha1 07:00 Report received from HO Valladares. aa5 07:00 Patient has correct armband on for positive identification. Bed in low position. Call aa5 light in reach. Side rails up X2. Pulse ox on. NIBP on. 07:02 CT Lumbar Spine Wo Con In Process Unspecified. EDMS 07:02 CT Pelvis wo Cont In Process Unspecified. EDMS 08:24 No provider procedures requiring assistance completed. aa5 08:31 Attending Physician role handed off by Oleg Schultz MD rn 08:31 Jose Roberto Baker MD is Attending Physician. rn 08:55 IV discontinued, intact, bleeding controlled, No redness/swelling at site. Pressure aa5 dressing applied. Administered Medications: 05:45 Drug: Ondansetron IVP 8 mg IVP once; over 2 minutes Route: IVP; Site: left antecubital; ha1 06:42 Follow up: Response: No adverse reaction ha1 05:47 Drug: morphine IVP or IV 8 mg IVP once over 4 mins Route: IVP; Infused Over: 4 mins; ha1 Site: left antecubital; 06:15 Follow up: Response: No adverse reaction; Pain is unchanged, physician notified; RASS: ha1 Restless (+1) 06:06 Drug: Diazepam IVP 5 mg IVP once Route: IVP; Site: left antecubital; ha1 06:30 Follow up: Response: No adverse reaction; Anxiety unchanged ha1 06:35 Drug: morphine IVP or IV 4 mg IVP once over 4 mins Route: IVP; Infused Over: 4 mins; ha1 Site: left antecubital; 07:00 Follow up: Response: No adverse reaction aa5 08:15 Drug: Promethazine IVP 12.5 mg IVP once Route: IVP; Site: left antecubital; aa5 08:20 Follow up: Response: No adverse reaction aa5 08:17 Drug: HYDROmorphone IVP 1 mg IVP once Route: IVP; Site: left antecubital; aa5 08:21 Follow up: Response: No adverse reaction aa5 08:20 Drug: Clindamycin IVPB 600 mg IVPB once over 30 mins; (mix in 50 mL) Route: IVPB; aa5 Infused Over: 30 mins; Site: left antecubital; 08:50 Follow up: Response: No adverse reaction; IV Status: Completed infusion aa5 Medication: 08:24 VIS not applicable for this client. aa5 Outcome: 08:33 Discharge ordered by . rn 08:55 Discharged to home via wheelchair, with family, aa5 08:55 Condition: stable 08:55 Discharge instructions given to patient, Instructed on discharge instructions, follow up and referral plans. medication usage, Demonstrated understanding of instructions, follow-up care, medications, Prescriptions given X 1, 08:58 Patient left the ED. aa5 Signatures: Dispatcher [employer] EDMS Jose Roberto Baker MD MD rn Calderon, Audri RN RN aa5 Tico Larry RN RN [email or web address] Jacquelyn Bunch RN RN ha1 Oleg Schultz MD MD sp4 Fern Garcia gm2 Corrections: (The following items were deleted from the chart) 06:42 06:15 Response: No adverse reaction; Pain is unchanged, physician notified; RASS: ha1 Restless (+1) ha1 08:22 08:21 BP 108 / 60; Pulse 60bpm; Resp 16bpm; Spontaneous; Pulse Ox 100% RA; aa5 aa5
--- NOTE | 2024-02-17 08:33 | EDPHYS ---
Physician Documentation [facility] Name: Lona Marie Age: 33 yrs Sex: Female : 1990 Arrival Date: 02/17/2024 Time: 05:02 Bed 20 Private MD: ED Physician Jose Roberto Baker HPI: 02/16 05:29 This 33 yrs old Female presents to ER via Wheelchair with complaints of Back sp4 Pain, Fever, Post back surgery 1 week ago. 05:39 33-year-old female with past medical history of anxiety, breast mass, chronic pain, sp4 hysterectomy, multiple allergies and migraines presents with acute moderate to severe lower back pain associated with anxiety attack and reported fever. Patient laminectomy and base ectomy L5-S1 level on 0 02/07/2024 at [facility] By Kadeem Kumar MD. 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 - Infectious Disease History:: Denies. - Social history:: Smoking status: Patient denies any tobacco usage or history of. - Family history:: not pertinent. ROS: 05:39 Constitutional: Positive moderate to severe lower back pain associated with anxiety and sp4 reported fever. 05:39 All other systems are negative, Exam: 05:39 Constitutional: This is a well developed, well nourished patient who is awake, alert, sp4 and Acutely anxious , tearful on exam . Head/Face: Normocephalic, atraumatic. Eyes: Pupils equal round and reactive to light, extra-ocular motions intact. Lids and lashes normal. Conjunctiva and sclera are not injected. Cornea within normal limits. Periorbital areas with no swelling, redness, or edema. ENT: Nares patent. No nasal discharge, no septal abnormalities noted. Tympanic membranes are normal and external auditory canals are clear. Oropharynx with no redness, swelling, or masses, exudates, or evidence of obstruction, uvula midline. Mucous membranes moist. Neck: Trachea midline, no thyromegaly or masses palpated, and no cervical lymphadenopathy. Supple, full range of motion without nuchal rigidity, or vertebral point tenderness. Chest/axilla: Normal chest wall appearance and motion. Nontender with no deformity. No lesions are appreciated. Cardiovascular: Regular rate and rhythm with a normal S1 and S2. No gallops, murmurs, or rubs. Normal PMI, no JVD. No pulse deficits. Respiratory: Lungs have equal breath sounds bilaterally, clear to auscultation and percussion. No rales, rhonchi or wheezes noted. No increased work of breathing, no retractions or nasal flaring. Abdomen/GI: Soft, with normal bowel sounds. No distension or tympany. No guarding or rebound. No evidence of tenderness throughout. Back: L-spine postoperative incision appears clean dry and intact. Patient reports moderate to severe L-spine tenderness Skin: Warm, dry with normal turgor. Normal color with no rashes, no lesions, and no evidence of cellulitis. MS/ Extremity: Pulses equal, no cyanosis. Neurovascular intact. Full, normal range of motion. Neuro: Awake and alert, GCS 15, oriented to person, place, time, and situation. Cranial nerves II-XII grossly intact. Motor strength 5/5 in all extremities. Sensory grossly intact. Psych: Awake, alert, with orientation to person, place and time. Positive moderate anxiety emotional upset Vital Signs: 05:21 BP 139 / 80; Pulse 90; Resp 16; Temp 98.8(O); Pulse Ox 100% on R/A; Weight 67.59 kg jb4 (R); Height 5 ft. 3 in. (R); 06:00 BP 139 / 80; Pulse 101; Resp 18; Pulse Ox 99% on 2 lpm NC; ha1 07:00 BP 139 / 58; Pulse 98; Resp 22 S; Pulse Ox 100% on 2 lpm NC; aa5 08:21 BP 108 / 60; Pulse 60; Resp 16 S; Pulse Ox 100% on 2 lpm NC; aa5 08:45 BP 110 / 60; Pulse 64; Resp 16 S; Pulse Ox 99% on R/A; aa5 05:21 Body Mass Index 26.39 (67.59 kg, 160.02 cm) jb4 Cali Coma Score: 05:39 Eye Response: spontaneous(4). Motor Response: obeys commands(6). Verbal Response: sp4 oriented(5). Total: 15. MDM: 05:47 Patient medically screened. sp4 07:04 Differential diagnosis: Fracture Osteoarthritis ruptured disc, Scoliosis. Data sp4 reviewed: vital signs, nurses notes. Transition of care: After a detail discussion of the patient's case, care is transferred to Jose Roberto Baker MD. 08:31 ED course: Patient signed out to me by Dr. Schultz, plan is to discharge home when rn pain controlled. Report to me was low back pain 1 week postoperative from back surgery with normal neurological exam. CT imaging shows mainly postoperative findings but no acute complications. Patient has appointment with her spinal surgeon tomorrow at 10 AM, will send home with antibiotics and pain better controlled now.. 02/16 05:39 Order name: CBC with Diff; Complete Time: 06:41 sp4 02/16 05:39 Order name: CMP; Complete Time: 06:59 sp4 02/16 05:39 Order name: PT-INR; Complete Time: 06:41 sp4 02/16 05:39 Order name: Type And Screen; Complete Time: 07:04 sp4 02/16 05:37 Order name: CT Lumbar Spine Wo Con; Complete Time: 07:56 sp4 02/16 05:37 Order name: CT Pelvis wo Cont; Complete Time: 07:56 sp4 02/16 05:39 Order name: Saline Lock; Complete Time: 05:51 sp4 Administered Medications: 05:45 Drug: Ondansetron IVP 8 mg IVP once; over 2 minutes Route: IVP; Site: left antecubital; ha1 06:42 Follow up: Response: No adverse reaction ha1 05:47 Drug: morphine IVP or IV 8 mg IVP once over 4 mins Route: IVP; Infused Over: 4 mins; ha1 Site: left antecubital; 06:15 Follow up: Response: No adverse reaction; Pain is unchanged, physician notified; RASS: ha1 Restless (+1) 06:06 Drug: Diazepam IVP 5 mg IVP once Route: IVP; Site: left antecubital; ha1 06:30 Follow up: Response: No adverse reaction; Anxiety unchanged ha1 06:35 Drug: morphine IVP or IV 4 mg IVP once over 4 mins Route: IVP; Infused Over: 4 mins; ha1 Site: left antecubital; 07:00 Follow up: Response: No adverse reaction aa5 08:15 Drug: Promethazine IVP 12.5 mg IVP once Route: IVP; Site: left antecubital; aa5 08:20 Follow up: Response: No adverse reaction aa5 08:17 Drug: HYDROmorphone IVP 1 mg IVP once Route: IVP; Site: left antecubital; aa5 08:21 Follow up: Response: No adverse reaction aa5 08:20 Drug: Clindamycin IVPB 600 mg IVPB once over 30 mins; (mix in 50 mL) Route: IVPB; aa5 Infused Over: 30 mins; Site: left antecubital; 08:50 Follow up: Response: No adverse reaction; IV Status: Completed infusion aa5 Disposition Summary: 02/17/24 08:33 Discharge Ordered Notes: Location: Home rn Problem: new rn Symptoms: have improved rn Condition: Stable rn Diagnosis - Low back pain rn Followup: rn - With: Private Physician - When: Tomorrow - Reason: Recheck today's complaints, Re-evaluation by your physician Discharge Instructions: - Discharge Summary Sheet rn - Acute Back Pain, Adult rn Forms: - Medication Reconciliation Form rn - Antibiotic international trade manager - Prescription Opioid Use rn - Patient Portal Instructions rn - Leadership Thank You Letter rn Prescriptions: - Clindamycin HCl 300 mg Oral Capsule - take 1 capsule ORAL route every 6 hours for 10 days; 40 capsule; Refills: 0, rn Product Selection Permitted Signatures: Dispatcher [employer] Jose Roberto Alves MD MD rn Calderon, Audri RN RN aa5 Tico Larry RN RN jb4 Jacquelyn Bunch RN RN [email or web address] Oleg Schultz MD MD sp4
[2024-02-17 09:07] VITALS: TEMP 98.8; O2SAT 100
[2024-02-17 09:08] VITALS: BP 108/60
== END 2024-02-17 08:58 | disposition home or self-care (01) ==
LOC: ER 05:02
DX: M54.50 Low back pain, unspecified (principal); Z98.890 Other specified postprocedural states
CPT/HCPCS: 96365; 85025; 36415; 86900; 86850; 85610; 86901; 80053; 72131; 72192; 96375; 99285; J2550; J3360; J1170; J2405

== ENCOUNTER 2024-11-29 08:32 | Emergency (ER) | payer OTHER ==
[2024-11-29] MEDS ORDERED: NA CHLORIDE 0.9% 1,000 ML ONE (09:15)
[2024-11-29 09:18] LABS: Absolute Basophils 0.1 K/uL (0-0.5); Absolute Eosinophils 0.1 K/uL (0-0.5); Absolute Lymphocytes (CBC) 2.8 K/uL (0.7-4.9); Absolute Monocytes 0.8 K/uL (0.1-1.3); Absolute Neutrophil 9.8 K/uL (1.8-8.0); Basophils % 0.9 % (0-1.3); Eosinophils % 0.6 % (0-4.4); Hematocrit 42.9 % (36.0-45.0); Hemoglobin 14.4 g/dL (12.0-15.0); Lymphocytes % 20.4 % (15.3-44.8); MCH 31.1 pg (27.0-35.0); MCHC 33.5 g/dL (32.0-36.0); MCV 92.8 fL (80-100); MPV 6.9 fL (7.6-11.3); Monocytes % 5.9 % (3.3-12.3); Neutrophils % 72.2 % (41.7-73.7); Nucleated Red Blood Cells % 0.1 % (0-0); Platelets 394 thou/uL (152-406); RBC Red Blood Cell Count 4.63 M/uL (3.86-4.86)
[2024-11-29 09:42] LABS: ALT/SGPT 22 U/L (13-56); Albumin 4.3 g/dL (3.4-5.0); Albumin/Globulin Ratio 1.2 (1.1-1.8); Alkaline Phosphatase 60 U/L (45-117); Anion Gap 8.6 mEq/L (5.0-15.0); BUN Blood Urea Nitrogen 8 mg/dL (7-18); Bicarbonate 28 mEq/L (21-32); Bilirubin Total 0.5 mg/dL (0.2-1.0); Globulin 3.7 g/dL (2.3-3.5); Glomerular Filtration Rate 89 ml/min (=/>90); Glucose Level 59 mg/dL (74-106); Potassium 3.6 mEq/L (3.5-5.1); Sodium Level 139 mEq/L (136-145)
[2024-11-29 09:51] LABS: AST/SGOT < 10 U/L (15-37)
[2024-11-29] MEDS ORDERED: ONDANSETRON 4 MG/2 ML VIAL ONE (10:39)
[2024-11-29] MEDS ORDERED: dexAMETHasone 10 MG/ML VIAL ONE (10:40)
[2024-11-29] MEDS ORDERED: MORPHINE 4 MG/ML SYR ONE (10:40)
[2024-11-29] MEDS ORDERED: DIAZEPAM 5 MG TABLET ONE (10:41)
[2024-11-29] MEDS ORDERED: HYDROMORPHONE HCL 1 MG/ML INJ ONE (12:16)
--- NOTE | 2024-11-29 12:19 | RAD REPORT ---
EXAMINATION: MRI LUMBAR SPINE WITHOUT CONTRAST CLINICAL INDICATION: PAIN TECHNIQUE: Multiplanar multisequence MR images were obtained of the lumbar spine WITHOUT intravenou s contrast. Unless otherwise specified, incidental findings do not require dedicated imaging follow-up. COMPARISON: 04/02/2023 FINDINGS: For purposes of this dictation, it is assumed that there are 5 non rib-bearing lumbar type vertebrae, and the most caudal fully segmented lumbar vertebra is labeled L5. ALIGNMENT: The lumbar spine has normal alignment. BONE: Vertebral bodies are normal in height. There is a normal marrow signal pattern. CORD: No abnormal signal in the cord. The conus medullaris terminates at a normal level. The nerve ro ots of the cauda equina appear normal. SOFT TISSUE: The included paraspinal soft tissues and retroperitoneal structures are grossly normal. EVALUATION OF THE INDIVIDUAL LEVELS: L1-2: Unremarkable. L2-3: Unremarkable. L3-4: Unremarkable. L4-5: Unremarkable. L5-S1: Modic endplate changes are seen, mild. Posterior disc bulge with large posterior annular fissu re centrally. Left left paracentral/foraminal disc protrusion is present resulting in moderate left exit foraminal narrowing. Moderate right exit foraminal narrowing. IMPRESSION: Moderate spondylosis L5-S1 as detailed.
--- NOTE | 2024-11-29 12:27 | EDPHYS ---
Physician Documentation [facility] Name: Lona Marie Age: 34 yrs Sex: Female : 1990 Arrival Date: 11/29/2024 Time: 08:32 Bed 16 Private MD: Aj Kessler HPI: 11/29 11:18 This 34 yrs old Female presents to ER via Ambulatory with complaints of Pain peg All Over. 11:18 The patient presents with pain that is acute, and decreased range of motion. The peg symptoms are located in the low back, lumbar area. Location: lumbar area and left low back. The problem was sustained during a fall, while standing. Onset: The symptoms/episode began/occurred 6 day(s) ago. Modifying factors: The patient symptoms are alleviated by remaining still, the patient symptoms are aggravated by any movement. Associated signs and symptoms: Pertinent positives: numbness, weakness. The patient presents with decreased range of motion, pain. The complaints affect the lateral aspect of left thigh, lateral aspect of left knee, lateral aspect of left calf, left hamstring, posterior aspect of left knee, left calf, medial aspect of left thigh, medial aspect of left knee, medial aspect of left calf, left quadriceps, left knee and left cotton. Onset: The symptoms/episode began/occurred 6 day(s) ago. 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 - Infectious Disease History:: Denies. - Social history:: Smoking status: Patient reports the use of cigarette tobacco products, smokes .1 packs per day. - Family history:: not pertinent. ROS: 11:18 Constitutional: Negative for fever, chills, and weight loss, Eyes: Negative for injury, peg pain, redness, and discharge, ENT: Negative for injury, pain, and discharge, Neck: Negative for injury, pain, and swelling, Cardiovascular: Negative for chest pain, palpitations, and edema, Respiratory: Negative for shortness of breath, cough, wheezing, and pleuritic chest pain, Abdomen/GI: Negative for abdominal pain, nausea, vomiting, diarrhea, and constipation, : Negative for injury, bleeding, discharge, and swelling, MS/Extremity: Negative for injury and deformity, Skin: Negative for injury, rash, and discoloration, Neuro: Negative for headache, weakness, numbness, tingling, and seizure, Psych: Negative for depression, anxiety, suicide ideation, homicidal ideation, and hallucinations, Allergy/Immunology: Negative for hives, rash, and allergies, Endocrine: Negative for neck swelling, polydipsia, polyuria, polyphagia, and marked weight changes, Hematologic/Lymphatic: Negative for swollen nodes, abnormal bleeding, and unusual bruising, 11:18 Back: Positive for decreased range of motion, pain at rest, pain with movement, radiated pain, of the lumbar area and left low back, Exam: 11:20 Constitutional: This is a well developed, well nourished patient who is awake, alert, peg and in no acute distress. Head/Face: Normocephalic, atraumatic. Eyes: Pupils equal round and reactive to light, extra-ocular motions intact. Lids and lashes normal. Conjunctiva and sclera are non-icteric and not injected. Cornea within normal limits. Periorbital areas with no swelling, redness, or edema. ENT: Nares patent. No nasal discharge, no septal abnormalities noted. Tympanic membranes are normal and external auditory canals are clear. Oropharynx with no redness, swelling, or masses, exudates, or evidence of obstruction, uvula midline. Mucous membranes moist. Neck: Trachea midline, no thyromegaly or masses palpated, and no cervical lymphadenopathy. Supple, full range of motion without nuchal rigidity, or vertebral point tenderness. No Meningismus. Chest/axilla: Normal chest wall appearance and motion. Nontender with no deformity. No lesions are appreciated. Cardiovascular: Regular rate and rhythm with a normal S1 and S2. No gallops, murmurs, or rubs. Normal PMI, no JVD. No pulse deficits. Respiratory: Lungs have equal breath sounds bilaterally, clear to auscultation and percussion. No rales, rhonchi or wheezes noted. No increased work of breathing, no retractions or nasal flaring. Abdomen/GI: Soft, non-tender, with normal bowel sounds. No distension or tympany. No guarding or rebound. No evidence of tenderness throughout. Skin: Warm, dry with normal turgor. Normal color with no rashes, no lesions, and no evidence of cellulitis. MS/ Extremity: Pulses equal, no cyanosis. Neurovascular intact. Full, normal range of motion., bilateral aka Neuro: Awake and alert, GCS 15, oriented to person, place, time, and situation. Cranial nerves II-XII grossly intact. Motor strength 5/5 in all extremities. Sensory grossly intact. Cerebellar exam normal. Normal gait. Psych: Awake, alert, with orientation to person, place and time. Behavior, mood, and affect are within normal limits. 11:20 Back: pain, that is moderate, ROM is painful, normal spinal alignment noted, CVA tenderness, is absent, muscle spasm, is appreciated in the left low back, left mid back, right mid back and right low back, 11:20 Neuro: Orientation: is normal, appropriate for stated age, no acute changes, Mentation: is normal, appropriate for stated age, no acute changes, Memory: is normal, appropriate for stated age, no acute changes, Cranial nerves: grossly normal, is grossly normal based on the patient's age, no acute changes, Cerebellar function: is grossly normal, Motor: moves all fours, strength is normal, Sensation: appropriate no acute changes, Gait: not tested. Babinski testing is normal, Vital Signs: 08:41 BP 161 / 94; Pulse 100; Resp 17; Temp 98; Pulse Ox 100% on R/A; Weight 66.22 kg; Height ll1 5 ft. 3 in. ; Pain 10/10; 10:54 BP 127 / 95; Pulse 92; Pulse Ox 98% on R/A; ap3 12:58 BP 148 / 94; ap3 08:41 Body Mass Index 25.86 (66.22 kg, 160.02 cm) ll1 08:41 Pain Scale: Adult ll1 MDM: 08:42 Medical Screening Exam initiated peg 11:22 Differential diagnosis: closed fracture, arthritis, strain, fracture, sciatica, peg contusion, Herniated disc UTI. Data reviewed: vital signs, nurses notes, lab test result(s), radiologic studies, MRI. Consideration of Admission/Observation Escalation of care including admission/observation considered. I considered the following discharge prescriptions or medication management in the emergency department Medications were administered in the Emergency Department. See MAR. Independent interpretation of the following test(s) in the Emergency Department MRI: My interpretation is MRI L SPINE. Test considered but Not performed: Labs: LABS. MRI: MRI L SPINE. Historians other than the Patient: PT WELL INFORMED. Care significantly affected by the following chronic conditions: SPINE COMPS. 11/29 08:44 Order name: CBC with Diff; Complete Time: 11:16 [facility] 11/29 08:44 Order name: Comprehensive Metabolic Panel; Complete Time: 11:16 [facility] 11/29 10:09 Order name: MRI Lumbar Spine wo Con; Complete Time: 12:26 [facility] Administered Medications: 09:21 Drug: NS 0.9% IV 1000 ml IV at 1000 ml once; to be given as a bolus over 60 minutes ap3 Route: IV; Rate: 1000 ml; Site: right antecubital; 10:53 Follow up: IV Status: Completed infusion; IV Intake: 1000ml ap3 10:52 Drug: Diazepam PO 10 mg PO once Route: PO; ap3 13:31 Follow up: Response: No adverse reaction; Pain is decreased ap3 10:53 Drug: Ondansetron IVP 4 mg IVP once; over 2 minutes Route: IVP; Site: right antecubital;ap3 13:31 Follow up: Response: No adverse reaction ap3 10:53 Drug: Decadron - Dexamethasone IVP 10 mg IVP once Route: IVP; Site: right antecubital; ap3 13:31 Follow up: Response: No adverse reaction; Pain is decreased ap3 10:53 Drug: morphine IVP or IV 4 mg IVP once over 4 mins Route: IVP; Infused Over: 4 mins; ap3 Site: right antecubital; 13:31 Follow up: Response: No adverse reaction; Pain is decreased ap3 12:31 Drug: HYDROmorphone IVP 1 mg IVP once Route: IVP; Site: right antecubital; ap3 13:31 Follow up: Response: No adverse reaction; Pain is decreased ap3 Disposition Summary: 11/29/24 12:26 Discharge Ordered Notes: Location: Home [facility] Problem: new peg Symptoms: have improved peg Condition: Fair peg Diagnosis - Sciatica, left side peg - Other intervertebral disc disorders, lumbar region peg - Low back pain peg Followup: peg - With: Private Physician - When: 2 - 3 days - Reason: Recheck today's complaints, Continuance of care, Re-evaluation by your physician Discharge Instructions: - Discharge Summary Sheet peg - Acute Back Pain, Adult peg - Herniated Disk peg - Musculoskeletal Pain peg - Sciatica peg - Degenerative Disk Disease peg - Chronic Back Pain, [id number] peg - Sciatica, [id number] peg - Herniated Disk, [id number] peg Forms: - Medication Reconciliation Form peg - Antibiotic Education peg - Prescription Opioid Use peg - Patient Portal Instructions [facility] - Leadership Thank You Letter [facility] Prescriptions: - diclofenac sodium 50 mg Oral tablet, delayed release (enteric coated) - take 1 tablet ORAL route 2 times per day; 20 tablet; Refills: 0, Product [facility] Selection Permitted - methocarbamol 750 mg Oral tablet - take 1 tablet ORAL route 4 times per day; 28 tablet; Refills: 0, Product peg Selection Permitted - Dexamethasone 4mg Oral tablet - take 1 tablet ORAL route daily for 4 days; 4 tablet; Refills: 0, Product [facility] Selection Permitted Signatures: Dispatcher [employer] Aj Cabral MD MD cha Prokisch, Amanda RN RN ap3 Sue Tadeo RN RN ll1
--- NOTE | 2024-11-29 12:27 | ER ---
Nurse's Notes [facility] Name: Lona Marie Age: 34 yrs Sex: Female : 1990 Arrival Date: 11/29/2024 Time: 08:32 Bed 16 Private MD: Diagnosis: Sciatica, left side;Other intervertebral disc disorders, lumbar region;Low back pain Presentation: 11/29 08:41 Coronavirus screen: Client denies travel out of the [place] in the last 14 days. At this ll1 time, the client does not indicate any symptoms associated with coronavirus-19. Ebola Screen: Patient denies travel to an Ebola-affected area in the 21 days before illness onset. Initial Sepsis Screen: Does the patient meet any 2 criteria? No. Patient's initial sepsis screen is negative. Does the patient have a suspected source of infection? No. Patient's initial sepsis screen is negative. Risk Assessment: Do you want to hurt yourself or someone else? Patient reports no desire to harm self or others. Onset of symptoms was November 23, 2024. 08:41 Method Of Arrival: Ambulatory ll1 08:41 Acuity: SMITH 3 ll1 08:50 Chief complaint: Patient states: Fell 6 days ago after her LLE felt numb. Has called 1 her surgeon many times since, with no call back. Triage Assessment: 08:51 General: Appears uncomfortable, Behavior is calm, cooperative, appropriate for age. ll1 Pain: Complains of pain in low back Pain radiates to left leg Pain currently is 10 out of 10 on a pain scale. Quality of pain is described as. Musculoskeletal: Reports pain in low back/L hip. 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 - Infectious Disease History:: Denies. - Social history:: Smoking status: Patient reports the use of cigarette tobacco products, smokes .1 packs per day. - Family history:: not pertinent. Screenin:13 Abuse screen: Denies threats or abuse. Nutritional screening: No deficits noted. ap3 Tuberculosis screening: No symptoms or risk factors identified. 13:31 [facility] ED Fall Risk Assessment (Adult) History of falling in the last 3 months, ap3 including since admission Yes- single mechanical fall (1 pt) Confusion or Disorientation No (0 pts) Intoxicated or Sedated No (0 pts) Impaired Gait Yes (1 pt) Mobility Assist Device Used Yes (1 pt) Altered Elimination No (0 pt) Score/Fall Risk Level 3 or more points = High Risk Oriented to surroundings, Maintained a safe environment, Educated pt \T\ family on fall prevention, incl call for assistance when getting out of bed, Assessed \T\ reinforced patient's understanding of fall precautions, Hourly rounding (assess needs \T\ fall precautionary measures) done, Used ambulatory aids as needed (educated on \T\ assisted with), Apply high fall risk patient identification: yellow non skid footwear/ fall signage, Remained w/in arm's length of patient and in sight while toileting, Offered frequent toileting (1:1 observation), Remained with patient while ambulating. Assessment: 09:12 General: Appears in no apparent distress. Behavior is calm, cooperative, appropriate ap3 for age. Pain: Complains of pain in low back area Pain radiates to left leg Pain began 6 days ago. Neuro: Level of Consciousness is awake, alert, obeys commands, Oriented to person, place, time, situation. Cardiovascular: Patient's skin is warm and dry. Respiratory: Airway is patent Respiratory effort is even, unlabored, Respiratory pattern is regular, symmetrical. Vital Signs: 08:41 BP 161 / 94; Pulse 100; Resp 17; Temp 98; Pulse Ox 100% on R/A; Weight 66.22 kg; Height ll1 5 ft. 3 in. ; Pain 10/10; 10:54 BP 127 / 95; Pulse 92; Pulse Ox 98% on R/A; ap3 12:58 BP 148 / 94; ap3 08:41 Body Mass Index 25.86 (66.22 kg, 160.02 cm) ll1 08:41 Pain Scale: Adult ll1 ED Course: 08:35 Patient arrived in ED. cj3 08:41 Arm band placed on. ll1 08:42 Aj Doe MD is Attending Physician. peg 08:42 Triage completed. ll1 08:54 Tami Orourke, HO is Primary Nurse. ap3 09:11 Initial lab(s) drawn, by me, sent to lab. Inserted saline lock: 22 gauge in right ap3 antecubital area, using aseptic technique. Blood collected. Flushed with 10 mL NS. 09:12 Comprehensive Metabolic Panel Sent. ap3 09:12 CBC with Diff Sent. ap3 09:13 Patient has correct armband on for positive identification. Bed in low position. Call ap3 light in reach. Side rails up X 1. 11:38 MRI Lumbar Spine wo Con In Process Unspecified. EDMS 13:32 Provided Education on: discharge instructions. ap3 13:32 No provider procedures requiring assistance completed. IV discontinued, intact, ap3 bleeding controlled, No redness/swelling at site. Pressure dressing applied. Administered Medications: 09:21 Drug: NS 0.9% IV 1000 ml IV at 1000 ml once; to be given as a bolus over 60 minutes ap3 Route: IV; Rate: 1000 ml; Site: right antecubital; 10:53 Follow up: IV Status: Completed infusion; IV Intake: 1000ml ap3 10:52 Drug: Diazepam PO 10 mg PO once Route: PO; ap3 13:31 Follow up: Response: No adverse reaction; Pain is decreased ap3 10:53 Drug: Ondansetron IVP 4 mg IVP once; over 2 minutes Route: IVP; Site: right antecubital;ap3 13:31 Follow up: Response: No adverse reaction ap3 10:53 Drug: Decadron - Dexamethasone IVP 10 mg IVP once Route: IVP; Site: right antecubital; ap3 13:31 Follow up: Response: No adverse reaction; Pain is decreased ap3 10:53 Drug: morphine IVP or IV 4 mg IVP once over 4 mins Route: IVP; Infused Over: 4 mins; ap3 Site: right antecubital; 13:31 Follow up: Response: No adverse reaction; Pain is decreased ap3 12:31 Drug: HYDROmorphone IVP 1 mg IVP once Route: IVP; Site: right antecubital; ap3 13:31 Follow up: Response: No adverse reaction; Pain is decreased ap3 Medication: 13:32 VIS not applicable for this client. ap3 Intake: 10:53 IV: 1000ml; Total: 1000ml. ap3 Outcome: 12:26 Discharge ordered by MD. [email or web address] 13:32 Discharged to home ambulatory, to lobby to wait for ride ap3 13:32 Condition: good 13:32 Discharge instructions given to patient, Instructed on discharge instructions, follow up and referral plans. medication usage, Demonstrated understanding of instructions, follow-up care, medications, Prescriptions given X 3, 13:33 Patient left the ED. ap3 Signatures: Dispatcher [employer] EDMS Aj Doe MD MD cha Prokisch, Amanda, RN RN ap3 Sue Tadeo RN RN ll1 Yashira Bingham 3
[2024-11-29 14:10] VITALS: TEMP 98
[2024-11-29 14:11] VITALS: O2SAT 98
[2024-11-29 14:12] VITALS: BP 148/94
== END 2024-11-29 13:33 | disposition home or self-care (01) ==
LOC: ER 08:32
DX: M54.32 Sciatica, left side (principal); M51.86 Other intervertebral disc disorders, lumbar region; F17.210 Nicotine dependence, cigarettes, uncomplicated
CPT/HCPCS: 96361; 85025; 36415; 80053; 72148; 96375; 96374; 99284; J1100; J1171; J2405; J7030

== ENCOUNTER 2024-12-28 10:10 | Emergency (ER) | payer OTHER ==
[2024-12-28 11:02] LABS: Absolute Lymphocytes (CBC) 2.4 K/uL (0.7-4.9); Absolute Monocytes 0.5 K/uL (0.1-1.3); Absolute Neutrophil 3.5 K/uL (1.8-8.0); Basophils % 0.3 % (0-1.3); Eosinophils % 0.3 % (0-4.4); Hematocrit 39.4 % (36.0-45.0); Hemoglobin 13.9 g/dL (12.0-15.0); Lymphocytes % 37.4 % (15.3-44.8); MCH 31.9 pg (27.0-35.0); MCHC 35.3 g/dL (32.0-36.0); MCV 90.5 fL (80-100); MPV 7.5 fL (7.6-11.3); Monocytes % 8.3 % (3.3-12.3); Neutrophils % 53.7 % (41.7-73.7); Platelets 257 thou/uL (152-406); RBC Red Blood Cell Count 4.35 M/uL (3.86-4.86); Red Cell Distribution Width 12.6 % (12.1-15.2)
[2024-12-28] MEDS ORDERED: IPRATROPIUM BROM 0.5MG/2.5ML ONE (11:23)
[2024-12-28] MEDS ORDERED: METHYLPREDNISOLONE 125 MG INJ ONE (11:23)
[2024-12-28] MEDS ORDERED: LEVALBUTEROL 1.25 MG/3 ML NEB ONE (11:23)
[2024-12-28 11:24] LABS: ALT/SGPT 52 U/L (13-56); AST/SGOT 29 U/L (15-37); Albumin 3.9 g/dL (3.4-5.0); Alkaline Phosphatase 52 U/L (45-117); Anion Gap 8.4 mEq/L (5.0-15.0); BUN Blood Urea Nitrogen 10 mg/dL (7-18); Bicarbonate 29 mEq/L (21-32); Bilirubin Total 0.4 mg/dL (0.2-1.0); Globulin 3.8 g/dL (2.3-3.5); Glomerular Filtration Rate 99 ml/min (=/>90); Glucose Level 82 mg/dL (74-106); Potassium 3.4 mEq/L (3.5-5.1); Protein, Total 7.7 g/dL (6.4-8.2); Sodium Level 139 mEq/L (136-145)
[2024-12-28] MEDS ORDERED: NA CHLORIDE 0.9% 1,000 ML ONE (11:24)
[2024-12-28] MEDS ORDERED: NA CHLORIDE 0.9% 250 ML ONE (11:24)
[2024-12-28] MEDS ORDERED: AZITHROMYCIN 500 MG INJ IVPB ONE (11:24)
[2024-12-28] MEDS ORDERED: FAMOTIDINE 20 MG/2 ML VIAL IV ONE (11:24)
[2024-12-28] MEDS ORDERED: predniSONE 20 MG TAB ONE (11:24)
[2024-12-28 11:25] LABS: C-Reactive Protein < 2.90 mg/L (<3.00); Troponin High Sensitivity < 3.0 pg/mL (<58.9)
--- NOTE | 2024-12-28 11:26 | RAD REPORT ---
Procedure: Chest Pa And Lat (2 Views) HISTORY: Cough COMPARISON: 2022 FINDINGS: The lungs appear clear of acute infiltrate. No significant pleural effusion noted. The heart is normal size. IMPRESSION: No acute abnormality is displayed.
[2024-12-28] MEDS ORDERED: POTASSIUM 25 MEQ EFFERV TAB ONE (11:48)
--- NOTE | 2024-12-28 12:05 | ER ---
Nurse's Notes [facility] Name: Lona Marie Age: 34 yrs Sex: Female : 1990 Arrival Date: 12/28/2024 Time: 10:10 Bed 7 Private MD: Diagnosis: Chest pain, unspecified;SARS-associated coronavirus as the cause of diseases classified elsewhere;Hypokalemia Presentation: 12/28 10:29 Chief complaint: Patient states: "I was just diagnosed with COVID and it's not getting ss any better." Pt reports she is having difficulty breathing and an inhaler is not helping. Also c/o chest tenderness, worse with cough/ deep breathing. Coronavirus screen: Client denies travel out of the [place] in the last 14 days. Ebola Screen: Patient denies exposure to infectious person. Patient denies travel to an Ebola-affected area in the 21 days before illness onset. Initial Sepsis Screen: Does the patient meet any 2 criteria? No. Patient's initial sepsis screen is negative. Does the patient have a suspected source of infection? No. Patient's initial sepsis screen is negative. Risk Assessment: Do you want to hurt yourself or someone else? Patient reports no desire to harm self or others. Onset of symptoms was December 22, 2024. 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 - Infectious Disease History:: Denies. - Social history:: Smoking status: Patient/guardian denies using tobacco, Stopped _ months ago 1. Screenin:42 [facility] ED Fall Risk Assessment (Adult) History of falling in the last 3 months, db including since admission No falls in past 3 months (0 pts) Confusion or Disorientation No (0 pts) Intoxicated or Sedated No (0 pts) Impaired Gait No (0 pts) Mobility Assist Device Used No (0 pt) Altered Elimination No (0 pt) Score/Fall Risk Level 0 - 2 = Low Risk Oriented to surroundings, Maintained a safe environment. Abuse screen: Denies threats or abuse. Denies injuries from another. Nutritional screening: No deficits noted. Tuberculosis screening: No symptoms or risk factors identified. Assessment: 11:00 Reassessment: Patient appears in no apparent distress at this time. Patient and/or db family updated on plan of care and expected duration. Pain level reassessed. Patient is alert, oriented x 3, equal unlabored respirations, skin warm/dry/pink. General: Appears in no apparent distress. comfortable, Behavior is calm, cooperative. Pain: Complains of pain in chest Pain began gradually. Cardiovascular: Reports chest pain. 12:42 Reassessment: Patient appears in no apparent distress at this time. Patient and/or db family updated on plan of care and expected duration. Pain level reassessed. Patient is alert, oriented x 3, equal unlabored respirations, skin warm/dry/pink. SEE MAR FOR MEDICATION ADMINISTRATION FOR NAUSEA AFTER POTASSIUM PO. 13:27 Reassessment: Patient appears in no apparent distress at this time. Patient and/or db family updated on plan of care and expected duration. Pain level reassessed. Patient is alert, oriented x 3, equal unlabored respirations, skin warm/dry/pink. Patient states feeling better. Patient states symptoms have improved. Vital Signs: 10:29 BP 128 / 84; Pulse 85; Resp 15; Temp 97.9(O); Pulse Ox 100% on R/A; Weight 64.41 kg; ss Height 5 ft. 3 in. ; Pain 7/10; 11:43 BP 117 / 78; Pulse 68; Resp 18; Pulse Ox 100% on R/A; db 12:00 BP 136 / 68; Pulse 103; Resp 18; Pulse Ox 96% on R/A; db 13:00 BP 136 / 68; Pulse 84; Resp 16; Pulse Ox 100% ; db 10:29 Body Mass Index 25.15 (64.41 kg, 160.02 cm) ss 10:29 Pain Scale: Adult ss ED Course: 10:14 Patient arrived in ED. al6 10:15 Aj Doe MD is Attending Physician. peg 10:31 Triage completed. ss 10:31 Arm band placed on right wrist. ss 10:43 Blas Perez, RN is Primary Nurse. bp 10:45 by ED staff, EKG done. Inserted saline lock: 20 gauge in right antecubital area, using db aseptic technique. Blood collected. Flushed with 10 mL NS. 11:06 Chest Pa And Lat (2 Views) XRAY In Process Unspecified. EDMS 12:05 Jeanmarie Gill MD is Referral Physician. peg 12:44 Patient has correct armband on for positive identification. Bed in low position. Call db light in reach. Client placed on continuous cardiac and pulse oximetry monitoring. NIBP monitoring applied. 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 Pulse ox on. NIBP on. Warm blanket given. Pillow given. 13:27 Provided Education on: DISCHARGE AND FOLLOWUP. db 13:27 No provider procedures requiring assistance completed. IV discontinued, intact, db bleeding controlled, No redness/swelling at site. Patient maintains SpO2 saturation greater than 95% on room air. Administered Medications: 11:45 Drug: MethylPrednisoLONE IVP 125 mg IVP once Route: IVP; Site: right antecubital; bp 12:41 Follow up: Response: No adverse reaction db 11:45 Drug: Levalbuterol Inhalation 2.5 mg Inhalation once Route: Inhalation; bp 12:41 Follow up: Response: No adverse reaction db 11:45 Drug: Ipratropium Inhalation Aerosol 0.5 mg Inhalation once Route: Inhalation; bp 12:41 Follow up: Response: No adverse reaction db 11:45 Drug: Famotidine IVP 20 mg IVP once; dilute with 10 mL 0.9% NaCl; give over 2 minutes bp Route: IVP; Site: right antecubital; 12:41 Follow up: Response: No adverse reaction db 11:45 Drug: Zithromax IVPB 500 mg IVPB once over 1 hrs; mix in 250 mL NS Route: IVPB; Infused bp Over: 1 hrs; Site: right antecubital; 12:48 Follow up: Response: No adverse reaction; IV Status: Completed infusion; IV Intake: db 250ml 11:46 Drug: NS 0.9% IV 1000 ml IV at 1 bolus Per protocol; to be given as a bolus over 60 bp minutes Route: IV; Rate: 1 bolus; Site: right antecubital; 12:41 Follow up: Response: No adverse reaction; IV Status: Completed infusion; IV Intake: db 1000ml 11:46 Drug: predniSONE PO 60 mg PO once Route: PO; bp 12:42 Follow up: Response: No adverse reaction db 11:50 Drug: Potassium PO Effervescent Tablet 25 mEq PO once; dissolve in 4 ounces of water or ss juice Route: PO; 12:42 Follow up: Response: No adverse reaction db 12:41 Drug: Ondansetron IVP 4 mg IVP once; over 2 minutes Route: IVP; Site: right antecubital;db 12:48 Follow up: Response: No adverse reaction db Medication: 13:27 VIS not applicable for this client. db Intake: 12:41 IV: 1000ml; Total: 1000ml. db 12:48 IV: 250ml; Total: 1250ml. db Outcome: 12:05 Discharge ordered by . peg 13:27 Discharged to home ambulatory, db 13:27 Condition: stable 13:27 Discharge instructions given to patient, Instructed on discharge instructions, follow up and referral plans. Prescriptions given X X 5 13:28 Patient left the ED. db Signatures: Dispatcher [employer] Aj Cabral MD MD cha Blanchard, Shelby, RN RN Blas Real RN RN bp Benton, Danielle, RN RN Rayna Amato6
--- NOTE | 2024-12-28 12:05 | EDPHYS ---
Physician Documentation [facility] Name: Lona Marie Age: 34 yrs Sex: Female : 1990 Arrival Date: 12/28/2024 Time: 10:10 Bed 7 Private MD: GUNJAN Physician Aj Doe HPI: 12/28 10:56 This 34 yrs old Female presents to ER via Ambulatory with complaints of Chest peg Pain, Breathing Difficulty, covid positive. 10:56 The patient or guardian reports chest pain that is located primarily in the anterior peg chest wall, bilaterally. The pain does not radiate. 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 - Infectious Disease History:: Denies. - Social history:: Smoking status: Patient/guardian denies using tobacco, Stopped _ months ago 1. ROS: 10:57 Constitutional: Negative for fever, chills, and weight loss, Eyes: Negative for injury, peg pain, redness, and discharge, ENT: Negative for injury, pain, and discharge, Neck: Negative for injury, pain, and swelling, Respiratory: Negative for shortness of breath, cough, wheezing, and pleuritic chest pain, Abdomen/GI: Negative for abdominal pain, nausea, vomiting, diarrhea, and constipation, Back: Negative for injury and pain, : Negative for injury, bleeding, discharge, and swelling, MS/Extremity: Negative for injury and deformity, Skin: Negative for injury, rash, and discoloration, Neuro: Negative for headache, weakness, numbness, tingling, and seizure, Psych: Negative for depression, anxiety, suicide ideation, homicidal ideation, and hallucinations, Allergy/Immunology: Negative for hives, rash, and allergies, Endocrine: Negative for neck swelling, polydipsia, polyuria, polyphagia, and marked weight changes, Hematologic/Lymphatic: Negative for swollen nodes, abnormal bleeding, and unusual bruising, 10:57 Cardiovascular: Positive for chest pain, palpitations, 10:57 Respiratory: Positive for cough, shortness of breath, Exam: 10:57 Constitutional: This is a well developed, well nourished patient who is awake, alert, peg and in no acute distress. Head/Face: Normocephalic, atraumatic. Eyes: Pupils equal round and reactive to light, extra-ocular motions intact. Lids and lashes normal. Conjunctiva and sclera are non-icteric and not injected. Cornea within normal limits. Periorbital areas with no swelling, redness, or edema. ENT: Nares patent. No nasal discharge, no septal abnormalities noted. Tympanic membranes are normal and external auditory canals are clear. Oropharynx with no redness, swelling, or masses, exudates, or evidence of obstruction, uvula midline. Mucous membranes moist. Neck: Trachea midline, no thyromegaly or masses palpated, and no cervical lymphadenopathy. Supple, full range of motion without nuchal rigidity, or vertebral point tenderness. No Meningismus. Chest/axilla: Normal chest wall appearance and motion. Nontender with no deformity. No lesions are appreciated. Cardiovascular: Regular rate and rhythm with a normal S1 and S2. No gallops, murmurs, or rubs. Normal PMI, no JVD. No pulse deficits. Respiratory: Lungs have equal breath sounds bilaterally, clear to auscultation and percussion. No rales, rhonchi or wheezes noted. No increased work of breathing, no retractions or nasal flaring. Abdomen/GI: Soft, non-tender, with normal bowel sounds. No distension or tympany. No guarding or rebound. No evidence of tenderness throughout. Back: No spinal tenderness. No costovertebral tenderness. Full range of motion. Skin: Warm, dry with normal turgor. Normal color with no rashes, no lesions, and no evidence of cellulitis. MS/ Extremity: Pulses equal, no cyanosis. Neurovascular intact. Full, normal range of motion., bilateral aka Neuro: Awake and alert, GCS 15, oriented to person, place, time, and situation. Cranial nerves II-XII grossly intact. Motor strength 5/5 in all extremities. Sensory grossly intact. Cerebellar exam normal. Normal gait. Psych: Awake, alert, with orientation to person, place and time. Behavior, mood, and affect are within normal limits. 10:57 Musculoskeletal/extremity: ROM: no acute changes, intact in all extremities, Circulation is intact in all extremities. Compartment Syndrome exam of affected extremity: is normal. DVT Exam: No signs of deep vein thrombosis. no pain, no swelling, no tenderness, negative Homans' sign noted on exam, no appreciated bluish discoloration, no erythema, no increased warmth, 12:40 Cardiovascular: Exam negative for [facility] 12:40 ECG was reviewed by the Attending Physician. Vital Signs: 10:29 BP 128 / 84; Pulse 85; Resp 15; Temp 97.9(O); Pulse Ox 100% on R/A; Weight 64.41 kg; ss Height 5 ft. 3 in. ; Pain 7/10; 11:43 BP 117 / 78; Pulse 68; Resp 18; Pulse Ox 100% on R/A; db 12:00 BP 136 / 68; Pulse 103; Resp 18; Pulse Ox 96% on R/A; db 13:00 BP 136 / 68; Pulse 84; Resp 16; Pulse Ox 100% ; db 10:29 Body Mass Index 25.15 (64.41 kg, 160.02 cm) 10:29 Pain Scale: Adult ss MDM: 10:15 Medical Screening Exam initiated peg 10:58 Antibiotic administration: The patient is discharged and will get outpatient [facility] antibiotics, Zithromax. Differential diagnosis: Anemia Anxiety Reaction asthma, Bronchitis CHF exacerbation, Chronic Obstructive Pulmonary Disease obstructed airway, bronchitis, flu, URI, abnormal EKG, acute pericarditis, anxiety, chest wall pain, Cholelithiasis costochondritis, hiatal hernia, myocarditis, pancreatitis, pericarditis, pulmonary embolus, stable angina, thoracic aortic disection, unstable angina, Myocardial Infarction pulmonary edema, Pulmonary Embolism. Data reviewed: vital signs, nurses notes, lab test result(s), EKG, radiologic studies. 12/28 10:16 Order name: CBC with Diff; Complete Time: 11:43 [facility] 12/28 10:16 Order name: Comprehensive Metabolic Panel; Complete Time: : [facility] 12/28 10:16 Order name: D-Dimer; Complete Time: [facility] 12/28 10:16 Order name: Troponin High Sensitivity; Complete Time: [facility] 12/28 10:16 Order name: CRP; Complete Time: [facility] 12/28 10:16 Order name: Chest Pa And Lat (2 Views) XRAY; Complete Time: [facility] 12/28 10:16 Order name: EKG - Nurse/Tech; Complete Time: 12:47 [facility] EC:40 Rate is 79 beats/min. Rhythm is regular. QRS [place] is Normal. CT interval is normal. QRS peg interval is normal. QT interval is normal. No Q waves. T waves are Normal. No ST changes noted. Clinical impression: NSR w/ Non-specific ST/T Changes and No evidence of ischemia. Interpreted by me. Reviewed by me. Administered Medications: 11:45 Drug: MethylPrednisoLONE IVP 125 mg IVP once Route: IVP; Site: right antecubital; bp 12:41 Follow up: Response: No adverse reaction db 11:45 Drug: Levalbuterol Inhalation 2.5 mg Inhalation once Route: Inhalation; bp 12:41 Follow up: Response: No adverse reaction db 11:45 Drug: Ipratropium Inhalation Aerosol 0.5 mg Inhalation once Route: Inhalation; bp 12:41 Follow up: Response: No adverse reaction db 11:45 Drug: Famotidine IVP 20 mg IVP once; dilute with 10 mL 0.9% NaCl; give over 2 minutes bp Route: IVP; Site: right antecubital; 12:41 Follow up: Response: No adverse reaction db 11:45 Drug: Zithromax IVPB 500 mg IVPB once over 1 hrs; mix in 250 mL NS Route: IVPB; Infused bp Over: 1 hrs; Site: right antecubital; 12:48 Follow up: Response: No adverse reaction; IV Status: Completed infusion; IV Intake: db 250ml 11:46 Drug: NS 0.9% IV 1000 ml IV at 1 bolus Per protocol; to be given as a bolus over 60 bp minutes Route: IV; Rate: 1 bolus; Site: right antecubital; 12:41 Follow up: Response: No adverse reaction; IV Status: Completed infusion; IV Intake: db 1000ml 11:46 Drug: predniSONE PO 60 mg PO once Route: PO; bp 12:42 Follow up: Response: No adverse reaction db 11:50 Drug: Potassium PO Effervescent Tablet 25 mEq PO once; dissolve in 4 ounces of water or ss juice Route: PO; 12:42 Follow up: Response: No adverse reaction db 12:41 Drug: Ondansetron IVP 4 mg IVP once; over 2 minutes Route: IVP; Site: right antecubital;db 12:48 Follow up: Response: No adverse reaction db Disposition Summary: 12/28/24 12:05 Discharge Ordered Notes: Location: Home peg Problem: new peg Symptoms: have improved peg Condition: Stable peg Diagnosis - Chest pain, unspecified peg - SARS-associated coronavirus as the cause of diseases classified elsewhere peg - Hypokalemia peg Followup: peg - With: Private Physician - When: 2 - 3 days - Reason: Recheck today's complaints, Continuance of care, Re-evaluation by your physician Followup: peg - With: Jeanmarie Gill MD - When: 2 - 3 days - Reason: Recheck today's complaints, Re-evaluation by your physician Discharge Instructions: - Discharge Summary Sheet peg - Nonspecific Chest Pain, Adult peg - Chest Wall Pain peg - Potassium Content of Foods peg - Chest Wall Pain, [id number] peg - Nonspecific Chest Pain, Adult, [id number] peg - Aspirin and Your Heart peg - Hypokalemia peg - Viral Illness, Adult [facility] Forms: - Medication Reconciliation Form [facility] - Antibiotic Education peg - Prescription Opioid Use [facility] - Patient Portal Instructions [facility] - Leadership Thank You Letter [facility] Prescriptions: - albuterol sulfate 90 mcg/actuation Inhalation Aerosol Powder, Breath Activated - administer 2 inhalation INHALATION route every 4-6 hours; 2 unit; Refills: 0, [facility] Product Selection Permitted - Pepcid 20 mg Oral Tablet - take 1 tablet ORAL route every 12 hours for 10 days; 20 tablet; Refills: 0, [facility] Product Selection Permitted - Prednisone 20 mg Oral Tablet - take 3 tablets ORAL route once daily for 5 days; 15 tablet; Refills: 0, Product [facility] Selection Permitted - Tessalon Perles 100 mg Oral capsule - take 2 capsule ORAL route every 8 hours As needed; 30 capsule; Refills: 0, [facility] Product Selection Permitted - Zithromax 500 mg Oral Tablet - take 1 tablet ORAL route once daily for 5 days; 5 tablet; Refills: 0, Product peg Selection Permitted Signatures: Dispatcher [employer] EDAj Khan MD MD cha Blanchard, Shelby, RN RN ss Blas Perez, RN RN bp France Patino, RN RN db Corrections: (The following items were deleted from the chart) 10:17 10:17 CBC+H.LAB.BRZ ordered. EDMS EDMS 10:17 10:17 COMPREHENSIVE METABOLIC PANEL+C.LAB.BRZ ordered. EDMS EDMS 10:17 10:17 D-DIMER+COAG.LAB.BRZ ordered. EDMS EDMS 10:17 10:17 Troponin High Sensitivity+C.LAB.BRZ ordered. EDMS EDMS 10:17 10:17 Test, Urine+UC.LAB.BRZ ordered. EDMS EDMS 10:17 10:17 Urinalysis+U.LAB.BRZ ordered. EDMS EDMS 10:17 10:17 C-REACTIVE PROTEIN+C.LAB.BRZ ordered. EDMS EDMS 10:17 10:17 Chest Pa And Lat (2 Views)+RAD.RAD.BRZ ordered. EDMS EDMS
[2024-12-28] MEDS ORDERED: ONDANSETRON 4 MG/2 ML VIAL ONE (12:32)
[2024-12-28 13:34] VITALS: TEMP 97.9
[2024-12-28 13:37] VITALS: BP 136/68
[2024-12-28 13:39] VITALS: O2SAT 100
--- NOTE | 2025-01-01 12:23 | EKG ---
Test Date: 2024-12-28 Test Time: 12:01:24 [place] Tab: AMARI MEASUREMENT RESULTS: Intervals: Rate: 79 OH: 132 QRSD: 72 QT: 358 QTc: 410 [place]: P: 58 OH: 132 QRS: 82 T: 34 INTERPRETIVE STATEMENTS: Normal sinus rhythm Nonspecific T wave abnormality Abnormal ECG Compared to ECG 07/28/2023 15:37:37 T-wave abnormality now present Electronically Signed On 01-01-25 12:12:12 CDT by Joselito Van
== END 2024-12-28 13:28 | disposition home or self-care (01) ==
LOC: ER 10:10
DX: U07.1 COVID-19 (principal); E87.6 Hypokalemia
CPT/HCPCS: 96365; 93005; 85025; 36415; 85379; 84484; 80053; 86140; 71046; 96375; 99285; J7512; J7614; J7644; J2919; J2405; J7050; J7030